=== PATIENT | male | born 1975 | race Caucasian/White ===

== ENCOUNTER 2018-09-17 06:23 | Day surgery (SDC) | payer OTHER, SELFPAY ==
[2018-09-17] MEDS: Lactated Ringers 1,000 ML 80 ML IV (06:36)
[2018-09-17] MEDS: CIPROFLOXACIN 400 MG/200 ML BAG 200 MG IVPB (06:37)
[2018-09-17 06:39] VITALS: BP 150/95; PULSE 106; RESP 18; TEMP 35.1; O2SAT 98
--- NOTE | 2018-09-17 07:33 | W.PM.HP.N ---
Date of service: 09/17/18 Time of Service: 07:33 Assessment and Plan (1) Phimosis: Current visit: Yes Status: Acute For circumcision History of Present Illness Chief Complaint: Phimosis Narrative: This is a 42-year-old gentleman who was uncircumcised. He describes cracking and bleeding along the foreskin. He is unable to retract the skin. He presents for circumcision. He has been treated for recurrent penile yeast infections as well. Review of Systems Review of Systems No fevers or chills No vision change or dysphasia No thyroid dysfunction No shortness of breath, cough or hemoptysis No chest pain or palpitations No nausea, vomiting, hepatitis, ulcers, jaundice, diarrhea or constipation No seizures, strokes or peripheral neuropathy No bleeding disorders or anemia No gout or arthralgia PFSH Medical History Depression (Chronic) HTN (hypertension) with goal to be determined (Chronic) Diabetes (Chronic) Surgical History H/O vasectomy (Acute) History of cholecystectomy (Chronic) Social History Smoking/Tobacco Use Status: Never Meds Home Medications Medication Instructions Recorded Confirmed Type furosemide 20 mg tablet 20 mg PO DAILY 08/13/18 09/14/18 History insulin detemir (U-100) 100 100 unit SC QPM 08/13/18 09/17/18 History unit/mL (3 mL) subcutaneous pen lisinopril 40 mg tablet 40 mg PO DAILY 08/13/18 09/14/18 History metformin 1,000 mg tablet 1,000 mg PO BID 08/13/18 09/14/18 History Allergies Allergy/AdvReac Type Severity Reaction Status Date / Time Penicillins Allergy Intermediate Anaphylaxsi Verified 09/17/18 06:33 s Exam Const General: cooperative, comfortable and no acute distress Neck Neck: supple Resp Auscultation: clear to auscultation bilaterally Cardio Rate: regular rate Rhythm: regular rhythm GI Palpation: soft and no masses Penis: phimosis Neuro General: alert and awake Results Last Vital Signs Temp 35.1 C L 09/17/18 06:39 Pulse 106 H 09/17/18 06:39 Resp 18 09/17/18 06:39 BP 150/95 H 09/17/18 06:39 Pulse Ox 98 09/17/18 06:39
[2018-09-17] MEDS: Bupivacaine 0.5% Pres-Free 30 ML VIAL (08:16)
--- NOTE | 2018-09-17 08:27 | W.PM.DSUDISC ---
Discharge Plan Disposition Patient Disposition: HOME Condition: Stable Discharge Details Reason For Visit: PHIMOSIS Attending Provider: Jasvir Franco Primary Care Provider: Dariana Méndez Home Meds and New Rx's Prescriptions: No Action Levemir FlexTouch U-100 Insuln 100 unit/mL (3 mL) insulin pen 100 unit SC QPM RF: 0 furosemide 20 mg tablet 20 mg PO DAILY RF: 0 metformin 1,000 mg tablet 1,000 mg PO BID RF: 0 lisinopril 40 mg tablet 40 mg PO DAILY RF: 0 Discharge Instructions Additional Instructions: OK to bathe/shower 09/18/18 and remove vaseline gauze dressing (dressing may come off on its own before that) F/U visit 2 to 4 weeks may apply antibiotic ointment to incision one to two times per day script for tramadol printed and signed Stand Alone Forms: DSU Post-op CircumcisionFermin (DSU) Activity:: Activity as Tolerated Remove Dressings/Wound Care:: 24 hours Shower/Bathe:: 24 hours Diet:: As Tolerated Discharge Orders Discharge Orders: Discharge Order (Routine); Ordered 09/17/18 Ordered By: Jasvir Franco DS: Diagnosis Discharge Diagnosis (1) Phimosis: Status: Acute
[2018-09-17 08:59] VITALS: BP 125/72; PULSE 80; RESP 16; TEMP 36; O2SAT 97
--- NOTE | 2018-09-17 11:21 | ROE_ITS ---
REPORT OF OPERATIVE PROCEDURE DATE OF PROCEDURE September 17, 2018 PREOPERATIVE DIAGNOSIS Phimosis. POSTOPERATIVE DIAGNOSIS Phimosis. PROCEDURE Circumcision. SURGEON Jasvir Franco M.D. ANESTHESIA MAC with local. COMPLICATIONS None. ESTIMATED BLOOD LOSS Minimal. HISTORY This is a 42-year-old gentleman who is diabetic. He is uncircumcised and he has episodes of recurrent monilial infections. This has resulted in scaring and cracking of the penile skin. He presents now f or circumcision. OPERATIVE REPORT The patient was brought to the Operating Room on 09/17/2018. After successful induction of Monitored An esthesia Care, he was placed in the supine position. His genitalia was prepped and draped. 0.25% Nelson chas was then used to perform a dorsal penile nerve block. I made two circumferential incisions on the penile skin. The first was on the exterior of the skin ju st above the level of the coronal sulcus. The skin was then retracted and its second internal incisio n was made approximately 1 cm below the level of the coronal sulcus. These two incisions were interco nnected and redundant skin was removed. Any bleeding points were cauterized using a hand-held Bovie. The skin edges were reapproximated with simple interrupted #4-0 Chromic sutures. A circumferential ring block was then performed on the penile skin using 0.25% Marcaine as well. A Va seline gauze dressing was applied to the incision site. The patient tolerated the procedure well with no complications. CC: Dariana Méndez M.D.
== END 2018-09-17 09:45 | disposition home or self-care (01) ==
PROVIDERS: PCP Family Medicine; Visit Provider Urology
PROC: (CPT 54161; principal; 2018-09-17 07:30)
DX: N47.1 Phimosis (principal)
CPT/HCPCS: 54161; NC; J0744; J1100; J1885; J2405

== ENCOUNTER 2019-08-02 08:38 | Outpatient (REF) | payer OTHER, SELFPAY ==
[2019-08-02 12:25] LABS: Hemoglobin A1C 10.6 % (4.5-6.2)
[2019-08-02 12:30] LABS: ALT 32 U/L (16-63); AST 11 U/L (15-37); Albumin 3.7 g/dL (3.4-5.0); Alkaline Phosphatase 107 U/L (46-116); Anion Gap 9.1 mmol/L (3-11); BUN 10 mg/dL (7-18); Bilirubin, Total 0.7 mg/dL (0.2-1.0); CO2 28.9 mmol/L (21.0-32.0); CREATININE 1.08 mg/dL (0.70-1.30); Calcium 9.1 mg/dL (8.5-10.1); Calculated LDL 60 mg/dL; Chloride 100 mmol/L (98-107); Cholesterol 119 mg/dL (50-200); Glucose 428 mg/dL (70-100); HDL Cholesterol 48 mg/dL (40-60); Potassium 4.6 mmol/L (3.5-5.1); Sodium 138 mmol/L (136-145); Total Protein 7.3 g/dL (6.4-8.2); Triglyceride 55 mg/dL (30-150)
== END 2019-08-02 08:58 ==
LOC: NCHCN 08:38
PROVIDERS: PCP Family Medicine; Visit Provider Family Medicine
DX: E11.9 Type 2 diabetes mellitus without complications (principal); I10 Essential (primary) hypertension; N18.3 Chronic kidney disease, stage 3 (moderate)
CPT/HCPCS: 80053; 80061; 83036

== ENCOUNTER 2020-09-21 18:07 | Outpatient (REF) | payer OTHER, SELFPAY ==
[2020-09-21 14:35] LABS: ALT 31 U/L (16-63); AST 9 U/L (15-37); Albumin 3.8 g/dL (3.4-5.0); Alkaline Phosphatase 99 U/L (46-116); BUN 14 mg/dL (7-18); Bilirubin, Total 0.7 mg/dL (0.2-1.0); CREATININE 1.03 mg/dL (0.70-1.30); Calcium 8.9 mg/dL (8.5-10.1); Calculated LDL 68 mg/dL (<100); Chloride 99 mmol/L (98-107); Cholesterol 123 mg/dL (<200); Glucose 332 mg/dL (74-106); HDL Cholesterol 44 mg/dL (40-60); Potassium 4.3 mmol/L (3.5-5.1); Sodium 137 mmol/L (136-145); Total Protein 7.3 g/dL (6.4-8.2); Triglyceride 58 mg/dL (<150)
== END 2020-09-21 18:27 ==
LOC: NCHCN 18:07
PROVIDERS: PCP Family Medicine; Visit Provider Nurse Practitioner Family
DX: I10 Essential (primary) hypertension (principal); E11.9 Type 2 diabetes mellitus without complications; F41.8 Other specified anxiety disorders; R60.0 Localized edema; N18.30 Chronic kidney disease, stage 3 unspecified; E66.9 Obesity, unspecified
CPT/HCPCS: 80053; 80061

== ENCOUNTER 2021-04-10 09:18 | Outpatient (REF) | payer OTHER, SELFPAY ==
[2021-04-10 13:59] LABS: Anion Gap 9.9 mmol/L (3-11); BUN 12 mg/dL (7-18); CO2 28.1 mmol/L (21.0-32.0); CREATININE 1.1 mg/dL (0.70-1.30); Calcium 8.9 mg/dL (8.5-10.1); Chloride 103 mmol/L (98-107); Glucose 151 mg/dL (74-106); Potassium 4.3 mmol/L (3.5-5.1); Sodium 141 mmol/L (136-145)
== END 2021-04-10 09:19 | disposition home or self-care (01) ==
LOC: NCHCN 09:18
PROVIDERS: PCP Family Medicine; Visit Provider Nurse Practitioner Family
DX: R60.0 Localized edema (principal); E66.9 Obesity, unspecified; E11.40 Type 2 diabetes mellitus with diabetic neuropathy, unspecified; F32.9 Major depressive disorder, single episode, unspecified; E11.22 Type 2 diabetes mellitus with diabetic chronic kidney disease; I12.9 Hypertensive chronic kidney disease with stage 1 through stage 4 chronic kidney disease, or unspecified chronic kidney disease; N18.30 Chronic kidney disease, stage 3 unspecified; G47.33 Obstructive sleep apnea (adult) (pediatric)
CPT/HCPCS: 80048

== ENCOUNTER 2021-08-10 13:33 | Outpatient (CLI) | payer OTHER, SELFPAY ==
--- NOTE | 2021-08-10 13:30 | DI.RAD_ITS ---
Exam(s) XR FOOT RT COMPLETE EXAM: XR FOOT RT COMPLETE CLINICAL HISTORY: DIABETIC FOOT ULCER, E11.621. TECHNIQUE: 2D digital imaging was performed. COMPARISON: No exams were available for comparison FINDINGS: BONES: No acute fracture is present. No bony destructive lesion is seen. JOINTS: No dislocation present. SOFT TISSUE: Marked swelling near the 5th MTP joint. Calcification within the area of soft tissue sw elling versus foreign body. No bony erosions or fractures. Vascular calcifications. IMPRESSION: Soft tissue swelling near the 5th MTP joint with calcification versus foreign body. DATA REPOSITORY: RADIATION DOSE DELIVERED:
== END 2021-08-10 13:53 ==
PROVIDERS: PCP Family Medicine; Visit Provider Nurse Practitioner Family
DX: E11.621 Type 2 diabetes mellitus with foot ulcer (principal); M79.9 Soft tissue disorder, unspecified
CPT/HCPCS: 73630

== ENCOUNTER 2021-08-10 14:33 | Outpatient (REF) | payer OTHER, SELFPAY ==
[2021-08-10 14:46] LABS: Abs Immature Grans 0.02 10^3/uL (0.0-0.06); Absolute Basophil Count 0.05 10^3/uL (0.0-0.2); Absolute Eosinophil Count 0.25 10^3/uL (0.0-0.7); Absolute Lymphocyte Count 1.55 10^3/uL (1.2-3.4); Absolute Monocyte Count 0.59 10^3/uL (0.1-0.8); Absolute Neutrophil Count 8.15 10^3/uL (1.2-6.7); Basophils % 0.5; Eosinophils % 2.4; HCT 48.8 % (40.0-50.0); HGB 15.8 g/dL (13.5-17.5); Immature Grans % 0.2; Lymphocytes % 14.6; MCHC 32.4 % (32.0-36.0); MCV 77.2 fL (80-95); Monocytes % 5.6; Neutrophils % 76.7; Nucleated RBC 0 %; Platelet Count 195 10^3/uL (130-400); RBC 6.32 10^6/uL (4.36-5.78); RDW 14.3 % (11.8-14.1); WBC 10.61 10^3/uL (4.4-10.8)
[2021-08-10 14:54] LABS: ESR 40 mm/hr (0-15)
[2021-08-10 15:30] LABS: ALT 21 U/L (16-63); AST 8 U/L (15-37); Albumin 3.7 g/dL (3.4-5.0); Alkaline Phosphatase 78 U/L (46-116); Anion Gap 9.3 mmol/L (3-11); BUN 13 mg/dL (7-18); Bilirubin, Total 0.7 mg/dL (0.2-1.0); CO2 27.7 mmol/L (21.0-32.0); Calcium 8.8 mg/dL (8.5-10.1); Chloride 102 mmol/L (98-107); Glucose 174 mg/dL (74-106); Potassium 4.1 mmol/L (3.5-5.1); Sodium 139 mmol/L (136-145); Total Protein 7.2 g/dL (6.4-8.2)
== END 2021-08-10 14:34 | disposition home or self-care (01) ==
LOC: NCHCN 14:33
PROVIDERS: PCP Family Medicine; Visit Provider Nurse Practitioner Family
DX: E11.621 Type 2 diabetes mellitus with foot ulcer (principal)
CPT/HCPCS: 80053; 85652; 85025

== ENCOUNTER 2021-08-12 11:00 | Emergency (ER) | payer OTHER, SELFPAY ==
[2021-08-12 11:17] VITALS: BP 151/97; PULSE 114; RESP 16; TEMP 35.8; O2SAT 96
--- NOTE | 2021-08-12 11:27 | ED.GENADUL_ITS ---
Discharge Plan Disposition Patient Disposition: HOME Condition: Stable Discharge Details Clinical Impression: Cellulitis of foot, right, Foreign body (FB) in soft tissue Primary Care Provider: Dariana Méndez ED Provider: Betito Londono Home Meds and New Rx's Prescriptions: New ciprofloxacin HCl 500 mg tablet 500 mg PO BID Qty: 20 RF: 0 Continued furosemide 20 mg tablet 20 mg PO DAILY RF: 0 metformin 1,000 mg tablet 1,000 mg PO BID RF: 0 lisinopril 40 mg tablet 40 mg PO DAILY RF: 0 tramadol 50 mg tablet 50 mg PO Q6H PRN (Reason: pain) Qty: 20 RF: 0 gabapentin 100 mg Tablet 600 mg PO TID RF: 0 losartan 25 mg Tablet 25 mg PO DAILY RF: 0 glipizide 5 mg Tablet 4 mg PO BID RF: 0 Discharge Instructions Instructions: Cellulitis (ED) Additional Instructions: Levaquin and Cipro as directed. Rest, elevate, warm compresses every 2 hours for 20 minutes. Please watch for new or worsening symptoms and return to the ER for any concerns. I have placed you on the podiatry list, please call the office of Dr. Park tomorrow to discuss your ongoing symptoms, ER visits, and need for prompt outpatient reevaluation Stand Alone Forms: Work Release Referrals: Maxi Park DPM [[facility] STAFF PHYSICIAN] - Medical Decision Making This is a 45-year-old gentleman, past medical history of diabetes, presenting for evaluation of right foot cellulitis. Had x-ray and labs on Friday, IM Rocephin and placed on p.o. Levaquin. Presents today reporting subjective fever and spreading redness. He does present slightly hypertensive but denies any headache, chest pain, etc. Patient states that he used to be on a hypertensive medication but was found to occasionally be hypotensive so he stopped taking the medication at the suggestion of his primary care provider. Will continue to monitor his blood pressure and discuss whether he needs to be placed back on a hypertensive medication. I was able to easily remove the glass foreign body from the plantar aspect. The vesicle is intact, do not see any indication to drain this vesicle. Patient with mild dorsal cellulitis which is thin slightly past the marking on the lateral aspect. Will obtain IV access, CBC, CMP, inflammatory markers and obtain x-ray of the right foot status post the foreign body removal. No evidence of fluctuance or induration requiring I&D. Low suspicion for osteomyelitis. This appears to be localized cellulitis. White blood cell count of 9.48. This is actually less than what it was 2 days ago. ESR of 47, CRP of 4.98 X-ray does not reveal any acute fracture dislocation or malalignment. Nonspecific 2 cm oval soft tissue mass lateral to the fifth metatarsal Given his plantar foreign body wound, I would like to add on Cipro as well. Will give first dose of 400 mg IV now and provide a prescription for Cipro 500 twice daily for the next 10 days. I do not believe that he requires emergent hospitalization now but we discussed the importance of taking his antibiotics, elevation, warm compresses, and prompt outpatient follow-up through podiatry. I have placed him on the podiatry list and will give a referral for him contact their office tomorrow. Strict discharge and return precautions provided. This documentation was generated using [employer] dictation system, please disregard any oddities of phrase or misspellings. Medical Records Medical records reviewed: Yes I reviewed the patient's medical records. Imaging Data Radiologic Study: Attestation: I personally reviewed and interpreted this imaging study as follows: Imaging: X-Ray Radiologist's impression: PROCEDURE INFORMATION: Exam: XR Right Foot Exam date and time: 08/12/2021 11:47 AM Age: 45 years old Clinical indication: Injury or trauma; Other: Cellulitus, removed glass fb from near 5th mtp; Wound; Foot; Right; Without foreign body TECHNIQUE: Imaging protocol: XR Right foot. Views: 3 or more views. COMPARISON: CR XR FOOT RT COMPLETE 08/10/2021 1:29 PM FINDINGS: Bones/joints: There is no evidence of acute fracture.There is no evidence of malalignment or dislocation. Soft tissues: 2 cm oval Soft tissue mass lateral to the 5th metatarsal phalangeal joint. Nonspecific but could represent infection or hematoma after removal of a foreign body.. IMPRESSION: 1. 2 cm oval Soft tissue mass lateral to the 5th metatarsal phalangeal joint. Nonspecific but could represent infection or hematoma after removal of a foreign body.. 2. There is no evidence of acute fracture.There is no evidence of malalignment or dislocation Lab Data Lab results reviewed: Yes I reviewed the patient's lab results. Labs: Laboratory Tests Range/Units 08/12/21 08/12/21 08/12/21 12:30 12:30 12:30 WBC (4.4-10.8) 10^3/uL 9.48 RBC (4.36-5.78) 10^6/uL 6.35 H Hgb (13.5-17.5) g/dL 15.6 Hct (40.0-50.0) % 48.4 MCV (80-95) fL 76.2 L MCH (27.0-33.0) pg 24.6 L MCHC (32.0-36.0) % 32.2 RDW (11.8-14.1) % 14.1 Plt Count (130-400) 10^3/uL 228 MPV (8.0-11.0) fL 10.8 Immature Gran % 0.4 Neutrophils % 72.9 Lymphocytes % 17.1 Monocytes % 5.1 Eosinophils % 4.0 Basophils % 0.5 Nucleated RBC % % 0 Absolute Neutrophils (1.2-6.7) 10^3/uL 6.91 H Absolute Lymphocytes (1.2-3.4) 10^3/uL 1.62 Absolute Monocytes (0.1-0.8) 10^3/uL 0.48 Absolute Eosinophils (0.0-0.7) 10^3/uL 0.38 Absolute Basophils (0.0-0.2) 10^3/uL 0.05 ESR (0-15) mm/hr 47 H Sodium (136-145) mmol/L 139 Potassium (3.5-5.1) mmol/L 3.8 Chloride (98-107) mmol/L 102 Carbon Dioxide (21.0-32.0) mmol/L 28.8 Anion Gap (3-11) mmol/L 8.2 BUN (7-18) mg/dL 13 Creatinine (0.70-1.30) mg/dL 1.0 Estimated GFR/1.73 m2 (mL/min/1.73m2) >= 60.00 Glucose (74-106) mg/dL 111 H Calcium (8.5-10.1) mg/dL 9.1 Total Bilirubin (0.2-1.0) mg/dL 0.3 AST (15-37) U/L < 5 L ALT (16-63) U/L 16 Alkaline Phosphatase (46-116) U/L 75 C-Reactive Protein (0.0-0.3) mg/dL 4.98 H Total Protein (6.4-8.2) g/dL 8.1 Albumin (3.4-5.0) g/dL 3.6 HPI General Mode of arrival: ambulatory . Date/Time Provider Initiated Documentation: 08/12/21 11:01 . Limitations to Documentation: no limitations . Information obtained by: patient and family . HPI Narrative: This is a 45-year- old gentleman, past medical history of diabetes, hypertension, depression, presenting to the ER for evaluation of a left foot infection. Patient states that the infection began on of this past week, subsequently seen in the urgent care on Friday, x-ray and labs obtained, given IM Rocephin and placed on oral Levaquin. Patient reports that he has baseline neuropathy, denies any pain, known injury. Subjectively felt feverish overnight. Patient also noticed a piece of glass in the plantar aspect of his foot. Tetanus status is up-to-date. Patient also reports a nondraining blister. No other concerns or complaints at this time. Related Data Home Medications Medication Instructions Recorded Confirmed furosemide 20 mg tablet 20 mg PO DAILY 08/13/18 08/12/21 lisinopril 40 mg tablet 40 mg PO DAILY 08/13/18 08/12/21 metformin 1,000 mg tablet 1,000 mg PO BID 08/13/18 08/12/21 tramadol 50 mg tablet 50 mg PO Q6H PRN #20 tab 09/17/18 08/12/21 ciprofloxacin HCl 500 mg PO BID #20 tab 08/12/21 gabapentin 600 mg PO TID 08/12/21 08/12/21 glipizide 4 mg PO BID 08/12/21 08/12/21 losartan 25 mg PO DAILY 08/12/21 08/12/21 Previous Rx's Medication Instructions Recorded tramadol 50 mg tablet 50 mg PO Q6H PRN #20 tab 09/17/18 ciprofloxacin HCl 500 mg PO BID #20 tab 08/12/21 Allergies Allergy/AdvReac Type Severity Reaction Status Date / Time Penicillins Allergy Intermediate Anaphylaxsi Verified 08/12/21 11:23 s General Stated Complaint: Orthopedic ANA M: 3 Review of Systems Constitutional Constitutional: Reports fever(s) (Subjective) and Denies weakness Musculoskeletal Musculoskeletal: Denies deformity and Denies arthralgias Comments: Patient reports baseline neuropathy Integumentary/Breasts Skin/Breast: Reports erythema Neurologic Neurologic: Denies weakness Comments: Baseline neuropathy [facility] Active Problem List Cellulitis of foot, right (Acute) Foreign body (FB) in soft tissue (Acute) Phimosis (Acute) Depression (Chronic) HTN (hypertension) with goal to be determined (Chronic) Diabetes (Chronic) Surgical History H/O vasectomy History of cholecystectomy Social History Smoking/Tobacco Use Status: Never Smoking risk assessment performed?: Yes Drug use: Never Substance use type: does not use Exam Const General: cooperative, healthy appearing, comfortable and no acute distress Orientation: alert and awake HENMT Head: normal to inspection, normocephalic and atraumatic Mouth: moist mucous membranes Eyes General: appearance normal, both eyes and all related structures Conjunctivae: conjunctivae normal Neck Neck: normal visual inspection, trachea midline and supple Resp Effort & Inspection: normal respiratory effort and able to speak in complete sentences Cardio Rate: regular rate Rhythm: regular rhythm Skin General skin exam: erythema Neuro General: patient alert, patient awake, moves all extremities and no focal motor deficits Cognition: normal cognition Speech: speech normal Gait: normal gait Motor: muscle tone normal throughout Sensory Exam: other (Baseline neuropathy) Extrem General: full ROM and capillary refill normal Ankle/foot/toe images: 1. Appears to be a plantar foreign body, glass in nature 2. 4 cm intact blood-filled vesicle 3. Erythema, warmth. Normal capillary refill and dorsalis pulse. There is a sterile skin marker that was drawn around the erythema 2 days ago, along the lateral aspect it extends 1 cm past the markings Psych Appearance: grossly normal Mental Status: mental status grossly normal Course Vital Signs Vital signs: Vital Signs Temperature 35.8 C L 08/12/21 11:17 Pulse 114 H 08/12/21 11:17 Respiratory Rate 16 08/12/21 11:17 Blood Pressure 151/97 H 08/12/21 11:17 Pulse Oximetry 96 08/12/21 11:17 Temperature 35.8 C L 08/12/21 11:17 Temperature Source Skin 08/12/21 11:17 Pulse 114 H 08/12/21 11:17 Respiratory Rate 16 08/12/21 11:17 Respiratory Effort 08/12/21 11:17 Blood Pressure 151/97 H 08/12/21 11:17 Blood Pressure Position Sitting 08/12/21 11:17 Pulse Oximetry 96 08/12/21 11:17 Oxygen Delivery Method Room Air 08/12/21 11:17 Oxygen Flow Rate 0 08/12/21 11:17 Pain Level 4 08/12/21 11:17 Procedures Foreign Body Removal Site: right and foot Description of foreign body: other (Glass) Sedation/Analgesia: none Technique: removal with forceps (Alligator) Confirmed by:: direct visualization and radiograph Complications: none Neurovascular: normal distal pulse and normal capillary fill
--- NOTE | 2021-08-12 11:45 | DI.RAD_ITS ---
Exam(s) XR FOOT RT COMPLETE EXAM: XR FOOT RT COMPLETE CLINICAL HISTORY: cellulitis, removed glass fb from near 5th mtp. TECHNIQUE: 2D digital imaging was performed. COMPARISON: CR XR FOOT RT COMPLETE from 08/10/2021 FINDINGS: The previously present foreign body lateral to the 5th metatarsal phalangeal joint is no longer seen. However, there is now a relatively well-defined abnormal soft tissue density in this region measuri ng approximately 2 by 1.4 cm and most probably hematoma, developing abscess, or a combination there o f. There are no additional radiopaque foreign bodies. No obvious radiographic evidence of osteomyel itis. No erosions. IMPRESSION: Soft tissue mass lateral to the 5th MTP joint, either representing hematoma or infection post removal of foreign body which was evident on the images of 08/10/2021. DATA REPOSITORY: RADIATION DOSE DELIVERED:
--- NOTE | 2021-08-12 12:16 | DI.VRAD_ITS ---
PROCEDURE INFORMATION: Exam: XR Right Foot Exam date and time: 08/12/2021 11:47 AM Age: 45 years old Clinical indication: Injury or trauma; Other: Cellulitus, removed glass fb from near 5th mtp; Wound; Foot; Right; Without foreign body TECHNIQUE: Imaging protocol: XR Right foot. Views: 3 or more views. COMPARISON: CR XR FOOT RT COMPLETE 08/10/2021 1:29 PM FINDINGS: Bones/joints: There is no evidence of acute fracture.There is no evidence of malalignment or dislocation. Soft tissues: 2 cm oval Soft tissue mass lateral to the 5th metatarsal phalangeal joint. Nonspecific but could represent infection or hematoma after removal of a foreign body.. IMPRESSION: 1. 2 cm oval Soft tissue mass lateral to the 5th metatarsal phalangeal joint. Nonspecific but could represent infection or hematoma after removal of a foreign body.. 2. There is no evidence of acute fracture.There is no evidence of malalignment or dislocation. Dictated and Authenticated by: Gerda Presley MD. Ordering:ABBEY Cisse MD
[2021-08-12 12:45] LABS: Abs Immature Grans 0.04 10^3/uL (0.0-0.06); Absolute Basophil Count 0.05 10^3/uL (0.0-0.2); Absolute Eosinophil Count 0.38 10^3/uL (0.0-0.7); Absolute Lymphocyte Count 1.62 10^3/uL (1.2-3.4); Absolute Monocyte Count 0.48 10^3/uL (0.1-0.8); Absolute Neutrophil Count 6.91 10^3/uL (1.2-6.7); Basophils % 0.5; HCT 48.4 % (40.0-50.0); HGB 15.6 g/dL (13.5-17.5); Immature Grans % 0.4; Lymphocytes % 17.1; MCH 24.6 pg (27.0-33.0); MCHC 32.2 % (32.0-36.0); MCV 76.2 fL (80-95); MPV 10.8 fL (8.0-11.0); Monocytes % 5.1; Neutrophils % 72.9; Nucleated RBC 0 %; Platelet Count 228 10^3/uL (130-400); RBC 6.35 10^6/uL (4.36-5.78); RDW 14.1 % (11.8-14.1); RDW-SD 38.3 fL; WBC 9.48 10^3/uL (4.4-10.8)
[2021-08-12 12:49] LABS: ESR 47 mm/hr (0-15)
[2021-08-12 13:02] LABS: ALT 16 U/L (16-63); AST < 5 U/L (15-37); Albumin 3.6 g/dL (3.4-5.0); Alkaline Phosphatase 75 U/L (46-116); Anion Gap 8.2 mmol/L (3-11); BUN 13 mg/dL (7-18); Bilirubin, Total 0.3 mg/dL (0.2-1.0); CO2 28.8 mmol/L (21.0-32.0); Calcium 9.1 mg/dL (8.5-10.1); Chloride 102 mmol/L (98-107); Glucose 111 mg/dL (74-106); Potassium 3.8 mmol/L (3.5-5.1); Sodium 139 mmol/L (136-145); Total Protein 8.1 g/dL (6.4-8.2)
[2021-08-12 13:03] LABS: C-Reactive Protein 4.98 mg/dL (0.0-0.3)
[2021-08-12 13:04] VITALS: BP 154/106; PULSE 86; RESP 16; TEMP 36.3; O2SAT 96
--- NOTE | 2021-08-12 13:10 | NUR.NOTE ---
Nursing Note: Referral faxed to Dr. Park, Podiatry, for diabetic foot infection, TESSA. Rosanna Silvestre
[2021-08-12] MEDS: CIPROFLOXACIN 400 MG/200 ML BAG 200 MG IVPB (13:27)
[2021-08-12 14:39] VITALS: BP 154/106; PULSE 86; RESP 16; TEMP 36.6; O2SAT 96
== END 2021-08-12 14:36 | disposition home or self-care (01) ==
PROVIDERS: Emergency Provider Physician Assistant; PCP Family Medicine
DX: L03.115 Cellulitis of right lower limb (principal); S90.851A Superficial foreign body, right foot, initial encounter; W25.XXXA Contact with sharp glass, initial encounter; E11.9 Type 2 diabetes mellitus without complications; Z79.84 Long term (current) use of oral hypoglycemic drugs
CPT/HCPCS: 36415; 80053; 85652; 96365; 99284; 73630; 85025; 86140; J0744

== ENCOUNTER 2021-08-14 11:02 | Outpatient (REF) | payer OTHER, SELFPAY | END 2021-08-14 11:03 | disposition home or self-care (01) | LOC: LBN 11:02 | PROVIDERS: PCP Family Medicine; Visit Provider Podiatrist | DX: E11.621 Type 2 diabetes mellitus with foot ulcer (principal) | CPT/HCPCS: 87077; 87070; 87186; 87205 ==

== ENCOUNTER 2022-04-29 15:13 | Outpatient (REF) | payer OTHER, SELFPAY ==
[2022-04-29 15:32] LABS: ALT 32 U/L (16-63); AST 20 U/L (15-37); Albumin 3.6 g/dL (3.4-5.0); Alkaline Phosphatase 75 U/L (46-116); Anion Gap 11.8 mmol/L (3-11); BUN 12 mg/dL (7-18); Bilirubin, Total 0.3 mg/dL (0.2-1.0); CO2 26.2 mmol/L (21.0-32.0); Calcium 8.8 mg/dL (8.5-10.1); Calculated LDL 52 mg/dL (<100); Chloride 100 mmol/L (98-107); Cholesterol 113 mg/dL (<200); Glucose 125 mg/dL (74-106); HDL Cholesterol 49 mg/dL (40-60); Magnesium 1.8 mg/dL (1.8-2.4); Potassium 3.9 mmol/L (3.5-5.1); Sodium 138 mmol/L (136-145); Total Protein 8.2 g/dL (6.4-8.2); Triglyceride 63 mg/dL (<150); Vitamin B12 156 pg/mL (193-986)
== END 2022-04-29 15:14 | disposition home or self-care (01) ==
LOC: NCHCN 15:13
PROVIDERS: PCP Family Medicine; Visit Provider Nurse Practitioner Family
DX: I10 Essential (primary) hypertension (principal); E11.9 Type 2 diabetes mellitus without complications; F41.8 Other specified anxiety disorders; E11.621 Type 2 diabetes mellitus with foot ulcer; R11.2 Nausea with vomiting, unspecified; R19.8 Other specified symptoms and signs involving the digestive system and abdomen; R60.9 Edema, unspecified
CPT/HCPCS: 80053; 80061; 82607; 83735

== ENCOUNTER 2022-07-25 18:24 | Outpatient (REF) | payer OTHER, SELFPAY ==
[2022-07-26 10:09] LABS: HIV-1/2 Ag & Ab Screen Negative (Negative)
[2022-07-26 11:42] LABS: Syphilis Serology (RPR) Negative (Negative)
== END 2022-07-25 18:25 | disposition home or self-care (01) ==
LOC: NCHCN 18:24
PROVIDERS: PCP Family Medicine; Visit Provider Nurse Practitioner Family
DX: Z11.3 Encounter for screening for infections with a predominantly sexual mode of transmission (principal); Z00.00 Encounter for general adult medical examination without abnormal findings
CPT/HCPCS: 87389; 86592

== ENCOUNTER 2022-09-23 19:18 | Emergency (ER) | payer OTHER, SELFPAY ==
[2022-09-23 19:27] VITALS: BP 162/96; PULSE 109; RESP 24; TEMP 36.3; O2SAT 95
--- NOTE | 2022-09-23 19:30 | RT.EKG_ITS ---
APPROVED REPORT Exam: Resting ECG Reason for Exam: BACK PAIN Patient Location: E HR:112 bpm ECG Measurements Heart Rate 112 AXIS WI 124 P 69 QRSd 99 QRS 94 QT 374 T 3 QTc 511 Conclusion Sinus tachycardia...rate> 99 Prolonged QT interval...QTc >500mS
--- NOTE | 2022-09-23 19:45 | DI.CT_ITS ---
Exam(s) CT CHEST PE ABD PELVIS W EXAM: CT CHEST PE ABD PELVIS W CLINICAL HISTORY: right upper back and flank pain. TECHNIQUE: Imaging Protocol: Axial CT angiography was performed with multi-slice acquisition and mu lti-planar and/or 3D reconstructions. CONTRAST MATERIAL: Intravenous: Omnipaque 350contrast volume:100 mL COMPARISON: No exams were available for comparison FINDINGS: CHEST: Tracheobronchial tree: Patent where visualized. Pulmonary parenchyma: No consolidation or dominant measurable mass. No architectural distortion. Pulmonary Arteries: No evidence of filling defect to suggest pulmonary emboli. Mediastinum and Yuliya: No dominant adenopathy or fluid collection. The esophagus is unremarkable. Visualized thyroid gland: Unremarkable. Pleura: No effusion or pneumothorax. Heart: The heart is not dilated. No coronary artery calcifications are seen. No pericardial effusion. Aorta: Thoracic aorta non-dilated. No evidence of dissection. Bones: Within normal limits for the patient's age. Soft tissues: Unremarkable. ABDOMEN: Liver: There is diffuse decreased attenuation of the liver suggesting fatty infiltration. The liver measures 21 cm long. No measurable mass. Portal, Superior Mesenteric, and Splenic Veins: Unremarkable. Gallbladder and Biliary Tract: Status post cholecystectomy. Pancreas: Normal density, no abnormal calcifications or inflammatory process. Spleen: Normal. Adrenals: No masses seen. Kidneys: Normal size, contour and axis. No radiodense stones or obstructive uropathy. No masses seen. Abdominal Aorta: Abdominal portion non-dilated. Bowel: No evidence of bowel obstruction. There does appear to be mild wall thickening in the small b owel. No evidence of appendicitis. Peritoneal Cavity: No ascites, collection or mesenteric inflammatory response. No free air. Lymph Nodes: Within normal limits. Bones: Within normal limits for the patient's age. There is L5 spondylolysis but no evidence of sign ificant spondylolisthesis. Soft Tissues: Unremarkable. PELVIS: Bladder: Symmetric distention, no gross wall thickening. Reproductive Organs: Unremarkable as visualized. Lymph Nodes: Within normal limits. Bones: Within normal limits. IMPRESSION: 1. No evidence pulmonary embolism, thoracic aortic dissection or aneurysm. 2. No acute pulmonary process. 3. Question of mild wall thickening in the small bowel which may represent enteritis. Please correla te clinically. RADIATION DOSE DELIVERED: 2,359.12mGy.cm Total DLP DATA REPOSITORY: All CT scans at this facility are submitted to the National Radiology Data Registry (NRDR) Dose Index Registry (DIR) with the [employer] (A[employer]). RADIATION OPTIMIZATION: All CT scans at this facility use at least one of these dose optimization te chniques: automated exposure control; mA and/or kV adjustment per patient size (includes targeted exa ms where dose is matched to clinical indication); or iterative reconstruction.
--- NOTE | 2022-09-23 20:00 | ED.GENADUL_ITS ---
Discharge Plan Disposition Patient Disposition: Home Condition: Stable Discharge Details Clinical Impression: Back pain, Hypomagnesemia, Hypokalemia, Flank pain, Upper back pain Primary Care Provider: Dariana Méndez ED Provider: Chalino Pitt Home Meds and New Rx's Prescriptions: Continued furosemide 20 mg tablet 20 mg PO DAILY metformin 1,000 mg tablet 1,000 mg PO BID lisinopril 40 mg tablet 40 mg PO DAILY vitamin [id number] acid 500-400 mcg tablet 2 tab PO DAILY Rx Instructions: administer with a meal tramadol 50 mg tablet 50 mg PO Q6H PRN (Reason: pain) Qty: 20 0RF Rx Instructions: may take along with NSAIDS/Tylenol valsartan 40 mg tablet 20 mg PO DAILY tadalafil 10 mg tablet 10 mg PO DAILY PRN Rx Instructions: administer approximately 30min before sexual activity; do not use more than 1 dose per 24hrs polyethylene glycol 3350 [Miralax] 17 gram/dose powder 17 g PO DAILY Ozempic 1 mg/dose (4 mg/3 mL) pen injector 1 mg subcut QWEEK citalopram [Celexa] 10 mg tablet 10 mg PO DAILY gabapentin 100 mg Tablet 600 mg PO TID losartan 25 mg Tablet 25 mg PO DAILY glipizide 5 mg Tablet 4 mg PO BID Discharge Instructions Instructions: Hypokalemia (ED), Hypomagnesemia (ED) Additional Instructions: Your blood work showed slightly low potassium and magnesium levels. Your cat scan did not show any clear reason for your pain Follow up with your primary care provider within 1 week if you feel more ill, have severe worsening pain or difficulty breathing return to the emergency department Medical Decision Making 46 yo male with hx of dm, htn, nephrotic syndrome, who comes in with complaint of back pain. He states he has had intermittent abdominal pain and lack of appetite for months. Today he has sudden onset right sided back pain. He denies chest pain, fevers, chills, has had nausea and vomiting. He can't think of anything that makes the pain better or worse. HE arrives stable but appears uncomfortable. HE localizes the pain to the right upper back and right cva area and has tenderness with palpation to the cva area on the right. No abdominal tenderness. Unclear etiology for pain, could be kidney stone vs pe less likely dissection, will obtain cbc, cmp, lipase, ct chest for pe and abd/pelvis ct. labs show mild low K and mag. His CT shows no significant findings, questions mild enteritis and also spondylolithesis of l5/s1. He is now pain free and feels well. Unclear etiology for the pain earlier, given rapid improvement suspect this could have been a muscle spasm. He is stable for d/c, he will f/u with his pcp and return precautions given Differential Diagnosis Differential Diagnosis: kidney stone, pe, muscle spasm Imaging Data Radiologic Study: Attestation: I personally reviewed and interpreted this imaging study as follows: Imaging: CT Scan Radiologist's impression: IMPRESSION: Unremarkable CTA chest and abdomen. Question mild enteritis/enterocolitis Chronic spondylolysis with minimal spondylolisthesis at L5-S1 Lab Data Lab results reviewed: Yes I reviewed the patient's lab results. ECG Data Attestation: I personally reviewed and interpreted this ECG (s) as follows: Prior ECG tracings: not available for review Interpretation: sinus tachycardia rate of 112, pr 124, no acute st t wave ischemic findings HPI General Mode of arrival: wheelchair . Date/Time Provider Initiated Documentation: 09/23/22 19:50 . Limitations to Documentation: no limitations . Information obtained by: patient . History of Present Illness 46 year old M presents to the emergency department with the chief complaint of right flank pain, described as moderate, Patient started experiencing this day(s) (1) and it has been intermittent. No relieving factors improve symptom(s), No e xacerbating factors reported . Patient notes no other symptoms.. Patient did receive the following treatments prior to arrival, none Related Data Home Medications Medication Instructions Recorded Confirmed furosemide 20 mg tablet 20 mg PO DAILY 08/13/18 09/03/22 lisinopril 40 mg tablet 40 mg PO DAILY 08/13/18 09/03/22 metformin 1,000 mg tablet 1,000 mg PO BID 08/13/18 09/03/22 tramadol 50 mg tablet 50 mg PO Q6H PRN pain #20 tabs 09/17/18 09/03/22 gabapentin 100 mg tablet 600 mg PO TID 08/12/21 09/03/22 glipizide 5 mg tablet 4 mg PO BID 08/12/21 09/03/22 losartan 25 mg tablet 25 mg PO DAILY 08/12/21 09/03/22 vitamin B12 500 mcg-folic acid 400 2 tab PO DAILY 07/16/22 09/03/22 mcg tablet citalopram 10 mg tablet (Celexa) 10 mg PO DAILY 07/25/22 09/03/22 polyethylene glycol 3350 17 17 g PO DAILY 07/25/22 09/03/22 gram/dose oral powder (Miralax) semaglutide 1 mg/dose (4 mg/3 mL) 1 mg subcut QWEEK 07/25/22 09/03/22 subcutaneous pen injector (Ozempic) tadalafil 10 mg tablet 10 mg PO DAILY PRN 07/25/22 09/03/22 valsartan 40 mg tablet 20 mg PO DAILY 07/25/22 09/03/22 Previous Rx's Medication Instructions Recorded tramadol 50 mg tablet 50 mg PO Q6H PRN pain #20 tabs 09/17/18 Allergies Allergy/AdvReac Type Severity Reaction Status Date / Time Penicillins Allergy Intermediate Anaphylaxsi Verified 08/06/22 15:53 s General Stated Complaint: Abd Prob ANA M: 3 Review of Systems All systems reviewed & are unremarkable except as noted in HPI and below Constitutional Constitutional: Denies chills, Denies fever(s) and Denies weakness Cardiovascular Cardiovascular: Denies dyspnea Respiratory Respiratory: Denies cough and Denies dyspnea Genitourinary Genitourinary: Denies dysuria Integumentary/Breasts Skin/Breast: Denies rash Neurologic Neurologic: Denies weakness PFSH All Active Problems (Updated 09/23/22 @ 21:49 by Chalino Pitt MD) Back pain (Acute) Hypomagnesemia (Acute) Hypokalemia (Acute) Flank pain (Acute) Upper back pain (Acute) Cataracts, bilateral (Acute) Diabetic foot ulcer (Acute) Nausea and vomiting (Acute) Screening for colon cancer (Acute) CKD (chronic kidney disease) (Chronic) JOSE (obstructive sleep apnea) (Chronic) Depression with anxiety (Acute) Diabetic neuropathy (Acute) Obesity (Chronic) Peripheral edema (Acute) Erectile dysfunction (Acute) Bowel habit changes (Acute) Vitamin B12 deficiency (Acute) Decreased hearing (Acute) Screening for STD (sexually transmitted disease) (Acute) Neuropathic ulcer (Acute) Wound of right foot (Acute) Wound of left foot (Acute) Cellulitis of foot, right (Acute) Foreign body (FB) in soft tissue (Acute) Phimosis (Acute) Depression (Chronic) HTN (hypertension) with goal to be determined (Chronic) Diabetes (Chronic) Active Problem List Cellulitis of foot, right (Acute) Foreign body (FB) in soft tissue (Acute) Phimosis (Acute) Depression (Chronic) HTN (hypertension) with goal to be determined (Chronic) Diabetes (Chronic) Surgical History H/O vasectomy History of cholecystectomy Social History (Updated 07/18/22 @ 17:32 by Shereen Weaver RN) Smoking/Tobacco Use Status: Never Smoking risk assessment performed?: Yes Drug use: Never Substance use type: does not use Household members: children Number of Children: 3 current occupation: [employer] What is your relationship status?: Panel score (0-1 are the most socially isolated patients): 0 Exam Resp Effort & Inspection: able to speak in complete sentences Auscultation: clear to auscultation bilaterally Cardio Heart Sounds: no murmurs GI Palpation: soft and nontender Back/Spine/Pelvis Back: CVA tenderness Course Vital Signs Vital signs: Vital Signs Temperature 36.3 C L 09/23/22 19:27 Pulse 109 H 09/23/22 19:27 Respiratory Rate 24 09/23/22 19:27 Blood Pressure 162/96 H 09/23/22 19:27 Pulse Oximetry 95 09/23/22 19:27 Temperature 36.3 C L 09/23/22 19:27 Temperature Source Tympanic 09/23/22 19:27 Pulse 109 H 09/23/22 19:27 Respiratory Rate 24 09/23/22 19:27 Blood Pressure 162/96 H 09/23/22 19:27 Pulse Oximetry 95 09/23/22 19:27 Oxygen Delivery Method Room Air 09/23/22 19:27 Oxygen Flow Rate 0 09/23/22 19:27 Pain Level 10 09/23/22 19:27
[2022-09-23 20:07] LABS: Abs Immature Grans 0.06 10^3/uL (0.0-0.06); Absolute Basophil Count 0.06 10^3/uL (0.0-0.2); Absolute Eosinophil Count 0.07 10^3/uL (0.0-0.7); Absolute Lymphocyte Count 1.43 10^3/uL (1.2-3.4); Absolute Monocyte Count 0.46 10^3/uL (0.1-0.8); Basophils % 0.4; Eosinophils % 0.5; HCT 50.2 % (40.0-50.0); Immature Grans % 0.4; MCH 25.3 pg (27.0-33.0); MCHC 33.9 % (32.0-36.0); MCV 75 fL (80-95); MPV 10.8 fL (8.0-11.0); Monocytes % 3.2; Neutrophils % 85.5; Platelet Count 228 10^3/uL (130-400); RBC 6.72 10^6/uL (4.36-5.78); RDW 13.6 % (11.8-14.1); RDW-SD 35.9 fL; WBC 14.26 10^3/uL (4.4-10.8)
[2022-09-23 20:13] LABS: Absolute Neutrophil Count 12.19 10^3/uL (1.2-6.7)
[2022-09-23] MEDS: Ketorolac 15 MG/ML VIAL IVP (20:18)
[2022-09-23] MEDS: Normal Saline 1,000 ML 1000 ML IV (20:18)
[2022-09-23 20:19] LABS: Diff Comment RBC Morph Reviewed; Microcytosis 1+
[2022-09-23 20:22] LABS: ALT 51 U/L (16-63); AST 28 U/L (15-37); Albumin 4.1 g/dL (3.4-5.0); Alkaline Phosphatase 84 U/L (46-116); Anion Gap 14.7 mmol/L (3-11); BUN 10 mg/dL (7-18); Bilirubin, Total 0.8 mg/dL (0.2-1.0); CO2 26.3 mmol/L (21.0-32.0); CREATININE 1.3 mg/dL (0.70-1.30); Calcium 9.2 mg/dL (8.5-10.1); Chloride 93 mmol/L (98-107); Estimated GFR 68.19 (mL/min/1.73m2); Glucose 240 mg/dL (74-106); Lipase 50 U/L (73-393); Magnesium 1.5 mg/dL (1.8-2.4); Potassium 3.1 mmol/L (3.5-5.1); Sodium 134 mmol/L (136-145); Total Protein 8.4 g/dL (6.4-8.2); Troponin I < 50 ng/L (<or=60)
[2022-09-23] MEDS: Normal Saline - Diluent 50 ML VIAL IJ (20:37)
[2022-09-23] MEDS: Normal Saline Flush 10 ML SYR IVP (20:45)
[2022-09-23] MEDS: Omnipaque 350 MG/ML 100 ML BTL IJ (20:45)
--- NOTE | 2022-09-23 21:23 | DI.VRAD_ITS ---
PROCEDURE INFORMATION: Exam: CTA Chest With Contrast CTA Abdomen With Contrast Exam date and time: 09/23/2022 8:36 PM Age: 46 years old Clinical indication: Other: Right upper back and flank pain TECHNIQUE: Imaging protocol: Computed tomographic angiography of the chest with contrast. Computed tomographic angiography of the abdomen with contrast. 3D rendering (Not supervised by radiologist): MIP and/or 3D reconstructed images were created by the technologist. Radiation optimization: All CT scans at this facility use at least one of these dose optimization techniques: automated exposure control; mA and/or kV adjustment per patient size (includes targeted exams where dose is matched to clinical indication); or iterative reconstruction. Contrast material: OMNIPAQUE 350; Contrast volume: 100 ml; Contrast route: INTRAVENOUS (IV); COMPARISON: No relevant prior studies available. FINDINGS: VASCULATURE: Pulmonary arteries: No pulmonary emboli. Aorta: No aortic aneurysm. No aortic dissection. Celiac trunk and mesenteric arteries: No occlusion or significant stenosis. Renal arteries: No occlusion or significant stenosis. CHEST: Lungs: No consolidation. No masses. Pleural spaces: Unremarkable. No pneumothorax. No pleural effusion. Heart: Mild cardiomegaly. No pericardial effusion. ABDOMEN AND PELVIS: Liver: No mass. Hepatomegaly and diffuse fatty infiltration Gallbladder and bile ducts: Prior cholecystectomy. No ductal dilation. Pancreas: No mass. No ductal dilation. Spleen: No splenomegaly. Adrenal glands: No mass. Kidneys and ureters: No solid mass. No hydronephrosis. Stomach and bowel: No obstruction. Mild mucosal thickening. Intraperitoneal space: Unremarkable. No free air. No significant fluid collection. Lymph nodes: Unremarkable. No enlarged lymph nodes. Bones/joints: Chronic spondylolysis with minimal spondylolisthesis at L5-S1 No acute fracture. Soft tissues: Unremarkable. IMPRESSION: Unremarkable CTA chest and abdomen. Question mild enteritis/enterocolitis Chronic spondylolysis with minimal spondylolisthesis at L5-S1 Dictated and Authenticated by: Gerard Stewart MD. Ordering:KIERAN Allred MD
[2022-09-23 21:55] VITALS: BP 173/102; PULSE 103; RESP 16; TEMP 36.5; O2SAT 97
== END 2022-09-23 22:00 | disposition home or self-care (01) ==
PROVIDERS: Emergency Provider Emergency Medicine; PCP Family Medicine
DX: M54.6 Pain in thoracic spine (principal); E83.42 Hypomagnesemia; E87.6 Hypokalemia; R10.9 Unspecified abdominal pain; I10 Essential (primary) hypertension; E11.9 Type 2 diabetes mellitus without complications; R63.0 Anorexia; Z79.84 Long term (current) use of oral hypoglycemic drugs
CPT/HCPCS: 36415; 71275; 74177; 80053; 83690; 93005; 96361; 96374; 99285; 83735; 84484; 85025; 93010; 99284; J1885; J3490

== ENCOUNTER 2022-10-29 15:57 | Outpatient (REF) | payer OTHER, SELFPAY ==
[2022-10-29 15:15] LABS: BUN 8 mg/dL (7-18); CREATININE 1.2 mg/dL (0.70-1.30); Calcium 9.2 mg/dL (8.5-10.1); Chloride 100 mmol/L (98-107); Estimated GFR 75.06 (mL/min/1.73m2); Glucose 122 mg/dL (74-106); Magnesium 1.7 mg/dL (1.8-2.4); Potassium 3.9 mmol/L (3.5-5.1); Sodium 139 mmol/L (136-145); Vitamin B12 480 pg/mL (193-986)
== END 2022-10-29 15:58 | disposition home or self-care (01) ==
LOC: NCHCN 15:57
PROVIDERS: PCP Family Medicine; Visit Provider Nurse Practitioner Family
DX: K76.0 Fatty (change of) liver, not elsewhere classified (principal); I10 Essential (primary) hypertension; E11.9 Type 2 diabetes mellitus without complications; E53.8 Deficiency of other specified B group vitamins; E66.9 Obesity, unspecified; E83.42 Hypomagnesemia; R19.8 Other specified symptoms and signs involving the digestive system and abdomen
CPT/HCPCS: 80048; 82607; 83735

== ENCOUNTER 2022-11-03 08:16 | Emergency (ER) | payer OTHER, SELFPAY ==
[2022-11-03 08:21] VITALS: BP 180/92; PULSE 101; RESP 18; TEMP 35.7; O2SAT 100
--- NOTE | 2022-11-03 08:30 | DI.CT_ITS ---
Exam(s) CT ABDOMEN PELVIS W EXAM: CT ABDOMEN PELVIS W CLINICAL HISTORY: left abd flank pain. TECHNIQUE: Imaging Protocol: Axial computed tomography images with coronal and sagittal reformatted images were created and reviewed CONTRAST MATERIAL: Intravenous: Omnipaque 350 Contrast volume:100 ml Oral: no COMPARISON: CT CT CHEST PE ABD PELVIS W from 09/23/2022 FINDINGS: ABDOMEN: Lung Bases: Normal where visualized. Liver: Hepatic steatosis. no measurable mass. Gallbladder and biliary tract: S/P cholecystectomy. no radiodense calculus or dilation. Pancreas: Normal density, no abnormal calcifications or inflammatory process. Spleen: Normal. Kidneys: Normal size, contour and axis. Delayed Left nephrogram. Mild left hydronephrosis secondary t o a 3mm calcification at the UVJ. Mild left perinephric stranding. no masses seen. Adrenal glands: No masses seen. Abdominal Aorta: Abdominal portion non-dilated. PELVIS: Bladder: No gross wall thickening. No calculi.No focal mass. Bowel: 13 x 16mm nodule descening duodenum. No obstruction or bowel wall thickening. Peritoneal cavity: No ascites, collection or mesenteric inflammatory response. Bones: Bilateral L5 spondylosis. Mild degenerative changes. Reproductive organs: Within normal limits. Lymph nodes: Unremarkable. Impression: Mild left hydronephrosis secondary to a 3mm calcification at the UVJ. 13 x 16mm nodule descening duodenum. Endoscopy recommended. Unexpected findings RADIATION DOSE DELIVERED: 1,622.7mGy.cm Total DLP DATA REPOSITORY: All CT scans at this facility are submitted to the National Radiology Data Registry (NRDR) Dose Index Registry (DIR) with the [employer] (A[employer]). RADIATION OPTIMIZATION: All CT scans at this facility use at least one of these dose optimization te chniques: automated exposure control; mA and/or kV adjustment per patient size (includes targeted exa ms where dose is matched to clinical indication); or iterative reconstruction.
--- NOTE | 2022-11-03 08:35 | W.ED.GENAD ---
Discharge Plan Disposition Patient Disposition: Home Condition: Stable Discharge Details Clinical Impression: Left ureteral calculus Primary Care Provider: Dariana Méndez ED Provider: Wei Gonzales Home Meds and New Rx's Prescriptions: New tamsulosin [Flomax] 0.4 mg capsule 0.4 mg PO QHS Qty: 14 0RF Continued metformin 1,000 mg tablet 1,000 mg PO BID furosemide 20 mg tablet 10 mg PO DAILY vitamin I12-tfuzx acid 500-400 mcg tablet 2 tab PO DAILY Rx Instructions: administer with a meal gabapentin 600 mg tablet 600 mg PO TID tadalafil 10 mg tablet 10 mg PO DAILY PRN Rx Instructions: administer approximately 30min before sexual activity; do not use more than 1 dose per 24hrs polyethylene glycol 3350 [Miralax] 17 gram/dose powder 17 g PO DAILY Ozempic 1 mg/dose (4 mg/3 mL) pen injector 1 mg subcut QWEEK citalopram [Celexa] 10 mg tablet 10 mg PO DAILY ondansetron 4 mg tablet,disintegrating 4 mg PO Q8H PRN (Reason: nausea and vomiting) Qty: 30 0RF No Action famotidine 20 mg tablet 20 mg PO DAILY Patient Comments: Take 1 tablet by mouth once a day Discharge Instructions Instructions: Kidney Stones (ED), Flank Pain (ED) Additional Instructions: You may continue to take [id number] acetaminophen as needed for mild to moderate pain. Please use narcotics prescribed divided sparingly and as only needed for severe pain. We have placed a referral for you to follow-up with our urology department for further monitoring of your kidney stone. If you develop any significant fever, worsening of symptoms, or inability to urinate return immediately to the emergency department for reassessment. There was a incidental finding noted on CT scan with radiologist recommending potential endoscopy. Please follow-up with your primary care provider for further outpatient evaluation of this abnormality. Referrals: [facility] [Provider Group] - 1 week Dariana Méndez [Primary Care Provider] - (For further evaluation of CT abnormality) Discharge Data Discharge Date/Time-TO BE ENTERED AT DEPARTURE: 11/03/22 10:24 Medical Decision Making Patient presenting to the emergency department for chief complaint of left flank and abdominal pain. Patient reports that this started about 6 hours ago, woke him up from sleep, no known precipitating factor. Patient did have this a little over a month ago and was seen here in the emergency department with no obvious cause and suspicion of muscular spasm. Patient does have significant past medical history of diabetes, chronic kidney disease, hypertension, and anxiety. Physical exam shows tenderness to the left upper quadrant and CVA tenderness but no palpable muscular spasm or paraspinal tenderness, no spinal tenderness, normal active bowel sounds and otherwise unremarkable exam. Differential diagnosis to include renal or ureteral lithiasis, splenomegaly, pancreatitis. Doubt abdominal aortic aneurysm, pneumonia, or PE at this time. We will plan on checking labs, perform CT imaging, and treating patient's pain and nausea. The patient's labs do show an acute leukocytosis with elevated neutrophils and low lymphocytes, CMP does show slightly elevated creatinine at 1.4, glucose of 247, mag of 1.7. We will replete mag orally, lipase is within normal range. Patient is also getting IV fluids to help with elevated creatinine. Reviewed CT imaging and radiologist interpretation does show a 3 x 2 x 3 mm stone at the UVJ on the left side. I do feel this explains patient's symptoms. I did review patient's imaging from 09/23/2022 and do see that there was potentially a missed stone that was mid ureter at that point. I will place patient on referral to urology due to patient having kidney stone for greater than 1 month. Due to severity of discomfort causing patient to come in we will give patient small to go bottle of narcotics and did discuss with patient risk versus benefit along with some ODT Zofran. Otherwise will recommend continued use of acetaminophen given patient's history of CKD and will place patient on Flomax. At this time I doubt infected stone given sudden onset, no fever no chills. After discussion of diagnosis and plan of care patient has no further needs, questions, or concerns and states clear understanding to return to the emergency department for any worsening symptoms. This documentation was generated using [employer] dictation system, please disregard any oddities of phrase or misspellings. Medical Records Medical records reviewed: Yes I reviewed the patient's medical records. Medical records narrative: Reviewed previous emergency department note dated 09/23/[address] imaging report. Imaging Data Radiologic Study: Attestation: I personally reviewed and interpreted this imaging study as follows: Imaging: CT Scan Radiologist's impression: Exam: CT Abdomen And Pelvis With Contrast Exam date and time: 11/03/2022 9:19 AM Age: 46 years old Clinical indication: Other: Left abd flank pain TECHNIQUE: Imaging protocol: Computed tomography of the abdomen and pelvis with contrast. Radiation optimization: All CT scans at this facility use at least one of these dose optimization techniques: automated exposure control; mA and/or kV adjustment per patient size (includes targeted exams where dose is matched to clinical indication); or iterative reconstruction. Contrast material: OMNIPAQUE 350; Contrast volume: 100 ml; Contrast route: INTRAVENOUS (IV); COMPARISON: CT CHEST PE ABD PELVIS W 09/23/2022 8:36 PM FINDINGS: Lungs: The visualized lung bases demonstrate minor dependent atelectasis. Liver: The liver is again fatty in density. Gallbladder and bile ducts: Cholecystectomy clips are again present. Pancreas: Normal. No ductal dilation. Spleen: A splenule is again present. The spleen itself appears unremarkable. Adrenal glands: Normal. No mass. Kidneys and ureters: Mild left-sided hydroureteronephrosis with mild delay of the nephrogram and asymmetric perinephric stranding secondary to a 3 x 2 x 3 mm stone at the left ureterovesical junction. The kidneys appear otherwise unremarkable. Stomach and bowel: The unopacified small bowel is not significantly distended to suggest obstruction. There is a similar 12 x 16 mm soft tissue density focus in the descending duodenum (images 6:46, 4:35). The large bowel is grossly unremarkable in appearance. Appendix: No evidence of appendicitis. Intraperitoneal space: No free air or significant free fluid. Vasculature: Unremarkable. No abdominal aortic aneurysm. Lymph nodes: Unremarkable. No enlarged lymph nodes. Urinary bladder: Unremarkable. Reproductive: Unremarkable as visualized. Bones/joints: Degenerative changes again involve the spine, sacroiliac joints and hips. Soft tissues: Unremarkable. IMPRESSION: 1. Mild left-sided hydroureteronephrosis with mild delay of the nephrogram and asymmetric perinephric stranding secondary to a 3 x 2 x 3 mm stone at the left ureterovesical junction. 2. Similar 16 mm soft tissue density focus in the descending duodenum as compared with 09/23/2022. Suggest endoscopy. 3. Persistent fatty liver. HPI General Mode of arrival: ambulatory. Date/Time Provider Initiated Documentation: 11/03/22 08:19. Limitations to Documentation: no limitations. Information obtained by: patient, RN notes reviewed and old records reviewed. History of Present Illness 46 year old M presents to the emergency department with the chief complaint of Severe left flank pain, described as severe, with intensity rated at 9. Quality is described as sharp, and is localized to the back and abdomen. Patient reports no radiation. Patient started experiencing this hour(s) (6) and it has been constant. No relieving factors improve symptom(s), No exacerbating factors reported . Patient notes nausea/vomiting. Related Data Home Medications Medication Instructions Recorded Confirmed metformin 1,000 mg tablet 1,000 mg PO BID 08/13/18 11/03/22 vitamin B12 500 mcg-folic acid 400 2 tab PO DAILY 07/16/22 11/03/22 mcg tablet citalopram 10 mg tablet (Celexa) 10 mg PO DAILY 07/25/22 11/03/22 polyethylene glycol 3350 17 17 g PO DAILY 07/25/22 11/03/22 gram/dose oral powder (Miralax) semaglutide 1 mg/dose (4 mg/3 mL) 1 mg subcut QWEEK 07/25/22 11/03/22 subcutaneous pen injector (Ozempic) tadalafil 10 mg tablet 10 mg PO DAILY PRN 07/25/22 11/03/22 ondansetron 4 mg disintegrating 4 mg PO Q8H PRN nausea and 09/23/22 11/03/22 tablet vomiting #30 tabs furosemide 20 mg tablet 10 mg PO DAILY 10/29/22 11/03/22 gabapentin 600 mg tablet 600 mg PO TID 10/29/22 11/03/22 famotidine 20 mg tablet 20 mg PO DAILY 11/03/22 11/03/22 tamsulosin 0.4 mg capsule (Flomax) 0.4 mg PO QHS #14 caps 11/03/22 Previous Rx's Medication Instructions Recorded ondansetron 4 mg disintegrating 4 mg PO Q8H PRN nausea and 09/23/22 tablet vomiting #30 tabs tamsulosin 0.4 mg capsule (Flomax) 0.4 mg PO QHS #14 caps 11/03/22 Allergies Allergy/AdvReac Type Severity Reaction Status Date / Time Penicillins Allergy Intermediate Anaphylaxsi Verified 11/03/22 10:06 s General Stated Complaint: FlankPain ANA M: 3 Review of Systems Constitutional Constitutional: Denies chills and Denies fever(s) Cardiovascular Cardiovascular: Denies chest pain and Denies dyspnea Respiratory Respiratory: Denies dyspnea Gastrointestinal Gastrointestinal: Reports abdominal pain, Reports nausea and Reports vomiting Genitourinary Genitourinary: Denies hematuria, Denies dysuria and Reports flank pain Musculoskeletal Musculoskeletal: Reports back pain Integumentary/Breasts Skin/Breast: Denies rash PFSH All Active Problems (Updated 11/03/22 @ 10:06 by Wei Gonzales NP) Left ureteral calculus (Acute) Cataracts, bilateral (Acute) Diabetic foot ulcer (Acute) Nausea and vomiting (Acute) Screening for colon cancer (Acute) CKD (chronic kidney disease) (Chronic) JOSE (obstructive sleep apnea) (Chronic) Depression with anxiety (Acute) Diabetic neuropathy (Acute) Obesity (Chronic) Peripheral edema (Acute) Erectile dysfunction (Acute) Bowel habit changes (Acute) Vitamin B12 deficiency (Acute) Decreased hearing (Acute) Screening for STD (sexually transmitted disease) (Acute) Neuropathic ulcer (Acute) Wound of right foot (Acute) Wound of left foot (Acute) Cellulitis of foot, right (Acute) Foreign body (FB) in soft tissue (Acute) Phimosis (Acute) Depression (Chronic) HTN (hypertension) with goal to be determined (Chronic) Diabetes (Chronic) Surgical History H/O vasectomy History of cholecystectomy Social History Smoking/Tobacco Use Status: Never Smoking risk assessment performed?: Yes Alcohol Intake: current Alcohol Intake frequency: holidays/special occasions only Drug use: Never Substance use type: does not use Household members: children Number of Children: 3 current occupation: [employer] What is your relationship status?: Panel score (0-1 are the most socially isolated patients): 0 Do you feel safe at home: Yes Do you feel safe in your relationship?: Yes Exam Const General: cooperative and acute distress moderate; not respiratory Nutritional Appearance: overweight Orientation: alert, awake and oriented x3 Resp Effort & Inspection: normal respiratory effort and able to speak in complete sentences Auscultation: clear to auscultation bilaterally Cardio Rate: regular rate Rhythm: regular rhythm Heart Sounds: S1 normal and S2 normal GI Palpation: soft, not firm, no guarding, no masses, no pulsatile masses, not rigid, no splenomegaly and tender in the LUQ Auscultation: normal bowel sounds General: CVA tenderness on the left Back/Spine/Pelvis Back: CVA tenderness Thoracic/Lumbar Spine: thoracic and lumbar spine normal to inspection, No thoracic spinal tenderness and No lumbar spinal tenderness Neuro General: patient alert, patient awake, patient oriented x3, gait normal and moves all extremities Course Vital Signs Vital signs: Vital Signs Temperature 35.7 C L 11/03/22 08:21 Pulse 101 H 11/03/22 08:21 Respiratory Rate 18 11/03/22 08:21 Blood Pressure 180/92 H 11/03/22 08:21 Pulse Oximetry 100 11/03/22 08:21 Temperature 35.7 C L 11/03/22 08:21 Temperature Source Tympanic 11/03/22 08:21 Pulse 101 H 11/03/22 08:21 Respiratory Rate 18 11/03/22 08:21 Blood Pressure 180/92 H 11/03/22 08:21 Blood Pressure Position Sitting 11/03/22 08:21 Pulse Oximetry 100 11/03/22 08:21 Oxygen Delivery Method Room Air 11/03/22 08:21 Oxygen Flow Rate 0 11/03/22 08:21 Pain Level 6 11/03/22 08:21
[2022-11-03 08:49] LABS: Abs Immature Grans 0.04 10^3/uL (0.0-0.06); Absolute Basophil Count 0.07 10^3/uL (0.0-0.2); Absolute Eosinophil Count 0.02 10^3/uL (0.0-0.7); Absolute Lymphocyte Count 0.93 10^3/uL (1.2-3.4); Absolute Monocyte Count 0.29 10^3/uL (0.1-0.8); Absolute Neutrophil Count 11.05 10^3/uL (1.2-6.7); Basophils % 0.6; Eosinophils % 0.2; HCT 49.9 % (40.0-50.0); Immature Grans % 0.3; Lymphocytes % 7.5; MCH 24.5 pg (27.0-33.0); MCHC 32.1 % (32.0-36.0); MCV 76 fL (80-95); MPV 11.1 fL (8.0-11.0); Monocytes % 2.3; Neutrophils % 89.1; Platelet Count 235 10^3/uL (130-400); RBC 6.54 10^6/uL (4.36-5.78); RDW 14.3 % (11.8-14.1); RDW-SD 38.5 fL
[2022-11-03] MEDS: Ondansetron 4 MG/2 ML VIAL IVP (08:52)
[2022-11-03] MEDS: HYDROmorphone 2 MG/ML SYR 1 MG IVP (08:52)
[2022-11-03 09:03] LABS: ALT 47 U/L (16-63); AST 25 U/L (15-37); Albumin 3.9 g/dL (3.4-5.0); Alkaline Phosphatase 81 U/L (46-116); Anion Gap 9.6 mmol/L (3-11); BUN 12 mg/dL (7-18); Bilirubin, Total 0.6 mg/dL (0.2-1.0); CO2 29.4 mmol/L (21.0-32.0); CREATININE 1.4 mg/dL (0.70-1.30); Calcium 9.4 mg/dL (8.5-10.1); Chloride 102 mmol/L (98-107); Estimated GFR 62.39 (mL/min/1.73m2); Glucose 247 mg/dL (74-106); Lipase 35 U/L (16-77); Magnesium 1.7 mg/dL (1.8-2.4); Potassium 3.8 mmol/L (3.5-5.1); Sodium 141 mmol/L (136-145); Total Protein 7.9 g/dL (6.4-8.2)
[2022-11-03] MEDS: Omnipaque 350 MG/ML 100 ML BTL IJ (09:20)
[2022-11-03] MEDS: Normal Saline - Diluent 50 ML VIAL IV (09:24)
[2022-11-03] MEDS: Normal Saline 1,000 ML 1000 ML IV (09:41)
--- NOTE | 2022-11-03 09:54 | DI.VRAD_ITS ---
PROCEDURE INFORMATION: Exam: CT Abdomen And Pelvis With Contrast Exam date and time: 11/03/2022 9:19 AM Age: 46 years old Clinical indication: Other: Left abd flank pain TECHNIQUE: Imaging protocol: Computed tomography of the abdomen and pelvis with contrast. Radiation optimization: All CT scans at this facility use at least one of these dose optimization techniques: automated exposure control; mA and/or kV adjustment per patient size (includes targeted exams where dose is matched to clinical indication); or iterative reconstruction. Contrast material: OMNIPAQUE 350; Contrast volume: 100 ml; Contrast route: INTRAVENOUS (IV); COMPARISON: CT CHEST PE ABD PELVIS W 09/23/2022 8:36 PM FINDINGS: Lungs: The visualized lung bases demonstrate minor dependent atelectasis. Liver: The liver is again fatty in density. Gallbladder and bile ducts: Cholecystectomy clips are again present. Pancreas: Normal. No ductal dilation. Spleen: A splenule is again present. The spleen itself appears unremarkable. Adrenal glands: Normal. No mass. Kidneys and ureters: Mild left-sided hydroureteronephrosis with mild delay of the nephrogram and asymmetric perinephric stranding secondary to a 3 x 2 x 3 mm stone at the left ureterovesical junction. The kidneys appear otherwise unremarkable. Stomach and bowel: The unopacified small bowel is not significantly distended to suggest obstruction. There is a similar 12 x 16 mm soft tissue density focus in the descending duodenum (images 6:46, 4:35). The large bowel is grossly unremarkable in appearance. Appendix: No evidence of appendicitis. Intraperitoneal space: No free air or significant free fluid. Vasculature: Unremarkable. No abdominal aortic aneurysm. Lymph nodes: Unremarkable. No enlarged lymph nodes. Urinary bladder: Unremarkable. Reproductive: Unremarkable as visualized. Bones/joints: Degenerative changes again involve the spine, sacroiliac joints and hips. Soft tissues: Unremarkable. IMPRESSION: 1. Mild left-sided hydroureteronephrosis with mild delay of the nephrogram and asymmetric perinephric stranding secondary to a 3 x 2 x 3 mm stone at the left ureterovesical junction. 2. Similar 16 mm soft tissue density focus in the descending duodenum as compared with 09/23/2022. Suggest endoscopy. 3. Persistent fatty liver. Dictated and Authenticated by: Chailno Dickerson MD. Ordering:CECIL Carvajal MD
[2022-11-03 10:09] VITALS: BP 161/104; PULSE 85; RESP 18; TEMP 36.2; O2SAT 96
--- NOTE | 2022-11-03 10:13 | NUR.NOTE ---
Referrals made per Doug Gonzales for PCP f/u for abnormal CT for next avail and f/u with Urology for kidney stone next week. Put in the care manger's box for f/u assistance.Nursing Note:
[2022-11-03] MEDS: Ondansetron O.D.T. 4 MG TABEF, 3 TABS/BTL PO (10:22)
== END 2022-11-03 10:24 | disposition home or self-care (01) ==
PROVIDERS: Emergency Provider Nurse Practitioner Family; PCP Family Medicine
DX: N13.2 Hydronephrosis with renal and ureteral calculous obstruction (principal); E11.22 Type 2 diabetes mellitus with diabetic chronic kidney disease; I12.9 Hypertensive chronic kidney disease with stage 1 through stage 4 chronic kidney disease, or unspecified chronic kidney disease; N18.9 Chronic kidney disease, unspecified; D72.829 Elevated white blood cell count, unspecified; R79.89 Other specified abnormal findings of blood chemistry; Z79.84 Long term (current) use of oral hypoglycemic drugs
CPT/HCPCS: 36415; 80053; 83690; 96361; 96374; 96375; 99285; 74177; 83735; 85025; 99284; J1170; J2405; J3490

== ENCOUNTER 2022-11-11 02:53 | Outpatient (CLI) | payer OTHER, SELFPAY ==
[2022-11-11 09:47] LABS: HCT 49.7 % (40.0-50.0); HGB 15.9 g/dL (13.5-17.5); MCH 24.6 pg (27.0-33.0); MCV 77 fL (80-95); MPV 10.9 fL (8.0-11.0); Platelet Count 226 10^3/uL (130-400); RBC 6.46 10^6/uL (4.36-5.78); RDW-SD 39.8 fL; WBC 8.69 10^3/uL (4.4-10.8)
[2022-11-11 10:24] LABS: ALT 36 U/L (16-63); AST 18 U/L (15-37); Albumin 3.7 g/dL (3.4-5.0); Alkaline Phosphatase 78 U/L (46-116); Anion Gap 6.8 mmol/L (3-11); BUN 5 mg/dL (7-18); Bilirubin, Total 0.4 mg/dL (0.2-1.0); CO2 30.2 mmol/L (21.0-32.0); CREATININE 1.3 mg/dL (0.70-1.30); Calcium 8.9 mg/dL (8.5-10.1); Chloride 104 mmol/L (98-107); Estimated GFR 68.19 (mL/min/1.73m2); Glucose 126 mg/dL (74-106); Potassium 4.2 mmol/L (3.5-5.1); Sodium 141 mmol/L (136-145); TSH (W/Ref FT4) 1.22 uIU/mL (0.36-3.74); Total Protein 7.7 g/dL (6.4-8.2)
[2022-11-16 09:23] LABS: Testosterone, Total 358 ng/dL (240-950)
== END 2022-11-11 02:54 | disposition home or self-care (01) ==
LOC: LBO 02:53
PROVIDERS: PCP Family Medicine; Visit Provider Nurse Practitioner Gerontology
DX: N52.9 Male erectile dysfunction, unspecified (principal)
CPT/HCPCS: 36415; 80053; 84403; 85027; 84443

== ENCOUNTER 2022-11-19 15:22 | Outpatient (REF) | payer OTHER, SELFPAY ==
[2022-11-19 15:19] LABS: Abs Immature Grans 0.02 10^3/uL (0.0-0.06); Absolute Basophil Count 0.05 10^3/uL (0.0-0.2); Absolute Eosinophil Count 0.13 10^3/uL (0.0-0.7); Absolute Monocyte Count 0.29 10^3/uL (0.1-0.8); Absolute Neutrophil Count 4.45 10^3/uL (1.2-6.7); Basophils % 0.7; Eosinophils % 1.9; HCT 46.9 % (40.0-50.0); Immature Grans % 0.3; Lymphocytes % 26.7; MCH 24.7 pg (27.0-33.0); MCV 77 fL (80-95); MPV 11.3 fL (8.0-11.0); Monocytes % 4.3; Neutrophils % 66.1; Platelet Count 206 10^3/uL (130-400); RBC 6.08 10^6/uL (4.36-5.78); RDW 15.1 % (11.8-14.1); RDW-SD 41.8 fL; WBC 6.74 10^3/uL (4.4-10.8)
[2022-11-19 15:45] LABS: Ferritin 147 ng/mL (26-388)
[2022-11-19 16:29] LABS: Iron 74 ug/dL (65-175); Total Iron Binding Capacity 297 ug/dL (250-450); Transferrin Sat 25 % (20-55)
[2022-11-25 15:33] LABS: JAK2 Result see interpretation
== END 2022-11-19 15:23 | disposition home or self-care (01) ==
LOC: NCHCN 15:22
PROVIDERS: PCP Family Medicine; Visit Provider Nurse Practitioner Family
DX: N20.0 Calculus of kidney (principal); D75.1 Secondary polycythemia; R93.5 Abnormal findings on diagnostic imaging of other abdominal regions, including retroperitoneum; R11.0 Nausea
CPT/HCPCS: 81270; 82728; 83540; 83550; 85025

== ENCOUNTER 2022-12-04 03:23 | Outpatient (CLI) | payer OTHER, SELFPAY ==
[2022-12-04 10:47] LABS: Hemoglobin A1C 6.4 % (<5.7)
== END 2022-12-04 03:24 | disposition home or self-care (01) ==
LOC: LBO 03:23
PROVIDERS: PCP Family Medicine; Visit Provider Urology
DX: E11.9 Type 2 diabetes mellitus without complications (principal)
CPT/HCPCS: 36415; 83036

== ENCOUNTER 2022-12-05 07:39 | Day surgery (SDC) | payer OTHER, SELFPAY ==
--- NOTE | 2022-12-04 21:08 | W.PM.DSUDISC ---
Date of service: 12/05/22 Time of Service: 11:15 Discharge Plan Disposition Patient Disposition: Home Condition: Good Discharge Details Reason For Visit: cystoscopy, egd and colonoscopy Attending Provider: Mac Delacruz Primary Care Provider: Dariana Méndez Home Meds and New Rx's Prescriptions: Continued metformin 1,000 mg tablet 1,000 mg PO BID vitamin R77-pvtus acid 500-400 mcg tablet 2 tab PO DAILY Rx Instructions: administer with a meal gabapentin 600 mg tablet 600 mg PO TID Trulicity 0.75 mg/0.5 mL pen injector 0.75 mg subcut QWEEK tadalafil 10 mg tablet 10 mg PO DAILY PRN Rx Instructions: administer approximately 30min before sexual activity; do not use more than 1 dose per 24hrs citalopram [Celexa] 10 mg tablet 10 mg PO DAILY furosemide 20 mg tablet 10 mg PO DAILY ondansetron 4 mg tablet,disintegrating 4 mg PO Q8H PRN (Reason: nausea and vomiting) Qty: 30 0RF famotidine 20 mg tablet 20 mg PO DAILY Patient Comments: Take 1 tablet by mouth once a day Discontinued bisacodyl [Dulcolax (bisacodyl)] 5 mg tablet,delayed release (DR/EC) 5 mg PO ONCE Qty: 4 0RF Rx Instructions: Take according to provider's instructions for colonoscopy prep. polyethylene glycol 3350 17 gram/dose powder 17 g PO ONCE Qty: 238 0RF Rx Instructions: To be taken as directed by prescriber's office for colonoscopy prep. polyethylene glycol 3350 [Miralax] 17 gram/dose powder 17 g PO DAILY Discharge Instructions Additional Instructions: Followup with urology 6 to 8 weeks for renal US - can either be done in office or in diagnostic imaging Edu, I was able to complete your upper endoscopy and your colonoscopy today without much difficulty. I found a polyp in your duodenum, and was able to remove this. Once I have the results on the pathology report, I will notify you if you need any other treatments. I also found a single polyp in your colonoscopy that I removed completely. Similarly, the next steps for this will depend upon the pathology report. 1. If tolerated, consume a soft, low fiber diet for 1-2 days. 2[address] Do not drive, drink alcohol, operate machinery, make critical decisions, or do activities that require coordination or balance for 24 hours. 3. Because air was put into your colon during the procedure, expelling air from your rectum (passing gas or farting) is normal. 4. You may not have a bowel movement for 1-3 days because of the colonoscopy prep. This is normal. 5. You may experience a sore throat for 24 to 48 hours. You may use throat lozenges or gargle with warm salt water to relieve the discomfort. 6. Because air was put into your stomach during the procedure, you may experience some belching. 7. Go directly to the emergency room if you notice any of the following: Develop chills (warm to touch), or if you have a thermometer and your temperature is above 101 Difficulty breathing or difficultly swallowing Persistent vomiting Severe abdominal pain, other than gas cramps Severe chest pain Black, tarry stools Any bleeding ? exceeding one tablespoon 8. Call your physician if the site where your intravenous was started becomes red, swollen, painful, and warm to touch. 9. Your physician has reviewed your pre-procedure medications. Please continue to take those medications as previously ordered. You will be given specific information/education regarding any changes to your medications before leaving. Activity:: Activity as Tolerated Shower/Bathe:: 24 hours Diet:: As Tolerated Discharge Orders Discharge Orders: Discharge Order (Routine); Ordered 12/04/22 Ordered By: Mac Delacruz DS: Diagnosis Discharge Diagnosis (1) Duodenal nodule: Status: Acute Asessment and Plan: Follow-up on polypectomy
--- NOTE | 2022-12-04 21:10 | ENDO_ITS ---
Date of service: 12/05/22 Time of Service: 11:21 Endoscopy Report DATE OF PROCEDURE: 12/05/22 PRE-OP DIAGNOSIS: Duodenal mass POST-OP DIAGNOSIS: other (Duodenal polyp, colon polyp) PROCEDURE: EGD and colonoscopy SURGEON: Mac Delacruz ANESTHESIA TYPE: General:No Airway ESTIMATED BLOOD LOSS: 20 PATHOLOGY: other (Duodenal polyp (posterior wall of first portion), colon polyp from 75 cm) COMPLICATIONS: None DISPOSITION: same day INDICATIONS: Charles is a 46 year old male with an incidental finding of a duodenal mass on CT scan. He is also due for a screening colonoscopy PREP: Miralax/Dulcolax PROCEDURE END TIME: 11:08 FINDINGS: Duodenal polyp, colon polyp PROCEDURE DESCRIPTION: I assumed the care of this patient in the operating room after the completion of the procedure by Dr. Franco. Please find the separate dictation for that. Patient was already anesthetized, and a routine timeout procedure was performed. I began by advancing a standard gastroscope through the mouth past the hypopharynx and into the esophagus.? Under the direct vision of the scope, I advanced down the esophagus into the stomach.? Once I entered the stomach, I performed a brief inspection, followed by retroflexion towards the gastric cardia.? This appeared normal.? After that, I gently advanced the scope around the incisura angularis and examined the pylorus.? This also appeared normal.? Next, I advanced the scope through the pylorus into the duodenum.? The mucosa was pink and healthy appearing.? I was able to visualize bile draining into the duodenum through the ampulla Vater. ?Next, I began retracting the endoscope. Just distal to the duodenal bulb, along the posterior wall of the first portion, was a 1 cm pedunculated polyp. I was able to remove this with snare polypectomy. There was minimal bleeding. Again, I returned to the stomach which was carefully examined once again.? I then gently desufflated some of the stomach, and withdrew the endoscope into the distal esophagus. GE junction and Z-line were normal-appearing around 39 cm from the incisors.. ?Finally, I wit hdrew the scope along the length of the esophagus taking great care to examine the entirety of the mucosa.? I did not appreciate any abnormalities. Next, we moved Mr. Nick into the left lateral decubitus position. I began by performing an external anorectal exam.? Perineum and skin were normal, as was the anal verge.? There was no evidence of external hemorrhoids.? Next, I performed a digital rectal exam.? I did not appreciate any abnormal findings.? Next, I advanced a colonoscope into the rectal vault.? I performed retroflexion.? This was normal.? Using insufflation, I then advanced the co lonoscope beyond the rectal folds and into the sigmoid colon before advancing towards the cecum.? The quality of the prep was excellent.? The scope was noted to be in the cecum by identification of the ileocecal valve and appendiceal orifice. Around 75 cm from the anal verge I identified a 0.5 cm polyp. ?It appeared sessile in character. ?I was able to remove this with a cold forcep polypectomy. ?I examined the site, and there was minimal bleeding. ?Once this was completed, I continued to withdraw the scope and examine the remainder of the colonic mucosa.? I then began withdrawing the colonoscope using repeated irrigation as necessary for full evaluation of the colonic mucosa. ?Once the scope was withdrawn to the level of the rectum, great care was taken to examine portions of the rectal folds.? Finally, the scope was withdrawn and the patient was brought to the same-day surgery recovery unit as the anesthetic wore off. ?The findings and instructions were shared with the patient prior to discharge.
[2022-12-05] VITALS (8 sets, daily range): BP systolic 114–149; BP diastolic 73–104; PULSE 73–99; RESP 11–20; TEMP 36.1–36.4; O2SAT 94–99; BMI 34.7
--- NOTE | 2022-12-05 06:47 | W.ANESPRE ---
General Info Date of Service Date Performed: 12/05/22 Height: 6 ft 2 in Weight: 122.47 kg Body Mass Index (BMI): 34.7 Surgical Procedure: Operation Date: 12/05/22 09:10 Proposed Procedure Side Surgeon p Colonoscopy/Gastroscopy Mac Delacruz MD s Cystoscopy/Retrograde/Ureteroscopy/Stone Manipulation Left Jasvir Franco MD Meds Allergies and Home Medications Allergies Allergy/AdvReac Type Severity Reaction Status Date / Time Penicillins Allergy Intermediate Anaphylaxsi Verified 12/03/22 14:40 s Home Medication Medication Instructions Recorded metformin 1,000 mg tablet 1,000 mg PO BID 08/13/18 vitamin B12 500 mcg-folic acid 400 2 tab PO DAILY 07/16/22 mcg tablet citalopram 10 mg tablet (Celexa) 10 mg PO DAILY 07/25/22 polyethylene glycol 3350 17 17 g PO DAILY 07/25/22 gram/dose oral powder (Miralax) tadalafil 10 mg tablet 10 mg PO DAILY PRN 07/25/22 ondansetron 4 mg disintegrating 4 mg PO Q8H PRN nausea and 09/23/22 tablet vomiting #30 tabs gabapentin 600 mg tablet 600 mg PO TID 10/29/22 famotidine 20 mg tablet 20 mg PO DAILY 11/03/22 furosemide 20 mg tablet 10 mg PO DAILY 11/22/22 dulaglutide 0.75 mg/0.5 mL 0.75 mg subcut QWEEK 11/26/22 subcutaneous pen injector (Trulicity) bisacodyl 5 mg tablet,delayed 5 mg PO ONCE #4 tabs 11/28/22 release (Dulcolax (bisacodyl)) polyethylene glycol 3350 17 17 g PO ONCE #238 grams 11/28/22 gram/dose oral powder Current Visit Medications: Current Medications Generic Name Dose Route Start Last Admin Trade Name Freq PRN Reason Stop Dose Admin Hyoscyamine Sulfate 0.125 mg 12/04/22 21:11 Hyoscyamine 0.125 Mg Sl/Oral/Chew SL DIRECTED PRN Ringer's Solution 1,000 mls @ 80 mls/hr 12/05/22 06:00 IV 01/03/23 23:59 INFUSION MIRTA Ciprofloxacin 400 mg in 200 mls @ 200 mls/hr 12/05/22 06:00 Cipro I.V. IVPB 12/05/22 18:00 PREOP [facility] IV Miscellaneous Supplies 1 each 12/05/22 06:00 Iv Access IV 01/03/23 23:59 DIRECTED MIRTA Ondansetron HCl 4 mg 12/04/22 21:11 Ondansetron 4 Mg/2 Ml Vial IVP Q4H PRN PRN Nausea / Vomiting Sodium Chloride 0 ml 12/05/22 06:00 Normal Saline Flush 10 Ml Syr IV 01/03/23 23:59 PRN PRN Sodium Chloride 0 ml 12/05/22 06:00 Normal Saline 10 Ml Vial IJ 01/03/23 23:59 DIRECTED PRN Sterile Water 0 ml 12/05/22 06:00 Water,Injection,Sterile 10 Ml Vial IJ 01/03/23 23:59 DIRECTED PRN PFSH Active Problems Active Problems: Problem Status Onset Code Hydronephrosis of left kidney N13.30 Steatosis E88.89 Duodenal nodule K31.[address] scan R93.5 Abnormal bowel habits R19.8 Cataracts, bilateral H26.9 Diabetic foot ulcer E11.621, L97.509 Nausea and vomiting R11.2 Screening for colon cancer Z12.11 CKD (chronic kidney disease) N18.9 JOSE (obstructive sleep apnea) G47.33 Depression with anxiety F41.8 Diabetic neuropathy E11.40 Obesity E66.9 Peripheral edema R60.9 Erectile dysfunction N52.9 Bowel habit changes R19.4 Vitamin B12 deficiency E53.8 Decreased hearing H91.90 Screening for STD (sexually transmitted disease) Z11.3 Neuropathic ulcer L98.499 Wound of right foot S91.301A Wound of left foot S91.302A Cellulitis of foot, right L03.115 Foreign body (FB) in soft tissue M79.5 Phimosis N47.1 Depression F32.9 HTN (hypertension) with goal to be determined I10 Diabetes E11.9 Medical History Medical History Fatty liver Surgical History Surgical History H/O vasectomy History of cholecystectomy Tobacco Smoking/Tobacco Use Status: Never Alcohol Alcohol Intake: current Alcohol intake frequency: holidays/special occasions only Substance Use Substance use: Never Substance use type: does not use Vital Signs and Lab Results Vital Signs Most Recent Vital Signs in EMR: Temp Pulse Resp BP Pulse Ox 36.2 C L 99 H 20 149/104 H 98 12/05/22 07:45 12/05/22 07:45 12/05/22 07:45 12/05/22 07:45 12/05/22 07:45 Lab Results Blood Type / Crossmatch: No Data to Display Complete Blood Count: White Blood Count 6.74 10^3/uL (4.4-10.8) 11/19/22 11:45 Red Blood Count 6.08 10^6/uL (4.36-5.78) H 11/19/22 11:45 Hemoglobin 15.0 g/dL (13.5-17.5) 11/19/22 11:45 Hematocrit 46.9 % (40.0-50.0) 11/19/22 11:45 Platelet Count 206 10^3/uL (130-400) 11/19/22 11:45 Complete Metabolic Panel: Sodium 141 mmol/L (136-145) 11/11/22 09:41 Potassium 4.2 mmol/L (3.5-5.1) 11/11/22 09:41 Chloride 104 mmol/L (98-107) 11/11/22 09:41 Carbon Dioxide 30.2 mmol/L (21.0-32.0) 11/11/22 09:41 BUN 5 mg/dL (7-18) L 11/11/22 09:41 Creatinine 1.3 mg/dL (0.70-1.30) 11/11/22 09:41 Est GFR (CKD-EPI 2020) 68.19 (mL/min/1.73m2) 11/11/22 09:41 Calcium 8.9 mg/dL (8.5-10.1) 11/11/22 09:41 Albumin 3.7 g/dL (3.4-5.0) 11/11/22 09:41 Glucose 126 mg/dL (74-106) H 11/11/22 09:41 Hemoglobin A1c 6.4 % (<5.7) H 12/04/22 10:00 Liver Function Panel: Alanine Aminotransferase (ALT/SGPT) 36 U/L (16-63) 11/11/22 09:41 Aspartate Amino Transf (AST/SGOT) 18 U/L (15-37) 11/11/22 09:41 Coagulation Panel: No Data to Display Cardiac Panel: No Data to Display Arterial Blood Gas: No Data to Display Venous Blood Gas: No Data to Display Pancreas Panel: No Data to Display Thyroid Panel: Thyroid Stimulating Hormone (TSH) 1.22 uIU/mL (0.36-3.74) 11/11/22 09:41 Infectious Disease: No Data to Display Blood Cultures: No Data to Display Toxicology Panel: No Data to Display Imaging and Studies Imaging and Studies Study information below may be from another EMR and interpreted by another provider. Please see original notes in EMR for more complete details. EKG Summary: 10/07: sinus tach, QTc >500 mS. Anesthesia Assessment and Plan Anesthesia History Personal History: No History of Anesthesia Complications Family History: No Family History of Anesthesia Complications Exercise Tolerance Exercise Tolerance: Metabolic Equivalents>4 Cardiac & Pulmonary Exam Cardiac Exam: Normal S1/S2 Heart Sounds Pulmonary Exam: Clear Bilateral Breath Sounds Implantable Cardiac Device Does patient have a Pacemaker or an ICD?: No Airway Exam Known Difficult Airway: No Mallampati Class: 2 Mouth Opening: Normal (> 3cm) Thyromental Distance: Greater than 3 cm Neck Range of Motion: Full ROM Neck Circumference: Normal Teeth Condition: Removable Dentures/Plates Upper ASA Classification ASA Score: ASA 2 Emergency Case?: No NPO Status NPO Status: NPO Clears >2 hours, Solids >8 hours Anesthesia Plan Resuscitation Status: Full Code Anesthesia Technique: General Anesthesia Airway Planned: Endotracheal Tube Monitors Used: Standard Monitors Preoperative Comments:: 46 yo male for EGD, colo, and cysto. Sig PMHx: hydronephrosis, membranous glomerulopathy (in remission), nausea, CKD, DM (a1c 6.4 12/05, dulaglutide, metformin), HTN, fatty liver, never smoker, JOSE occ EtOH, depression/anxiety.
--- NOTE | 2022-12-05 07:06 | W.PM.HP.N ---
Date of service: 12/05/22 Time of Service: 08:39 Assessment and Plan Assessment and plan (1) Calculus of distal left ureter: Status: Acute Assessment and plan: Once his GI endoscopy is completed, we will perform a cystoscopy and left retrograde pyelogram. If his stone is still present, we will be prepared to do ureteroscopy and stone manipulation. History of Present Illness History of Present Illness Chief Complaint: Ureteral stone Narrative: This is a 46 year old man who has been having left flank pain for the past 2 months. he has had 2 prior ED visits for this issue. At first, he believed the pain was related to a muscle spasm. Later in the course, he was found to have a small left distal ureteral stone. He no longer has left flank pain, but he is unaware of passing a stone. He has no frequency or urgency. He presents for possible stone manipulation. Review of Systems Narrative: No fevers or chills Cataracts. No dysphasia Diabetes with neuropathy. No thyroid Sleep apnea. No cough or hemoptysis No chest pain or palpitations No nausea, vomiting, hepatitis, ulcers, jaundice Neuropathy. No seizures, strokes No bleeding disorders or anemia No gout PFSH All Active Problems Calculus of distal left ureter (Acute) Hydronephrosis of left kidney (Acute) Steatosis (Acute) Duodenal nodule (Acute) Abnormal abdominal CT scan (Acute) Abnormal bowel habits (Acute) Cataracts, bilateral (Acute) Diabetic foot ulcer (Acute) Nausea and vomiting (Acute) Screening for colon cancer (Acute) CKD (chronic kidney disease) (Chronic) JOSE (obstructive sleep apnea) (Chronic) Depression with anxiety (Acute) Diabetic neuropathy (Acute) Obesity (Chronic) Peripheral edema (Acute) Erectile dysfunction (Acute) Bowel habit changes (Acute) Vitamin B12 deficiency (Acute) Decreased hearing (Acute) Screening for STD (sexually transmitted disease) (Acute) Neuropathic ulcer (Acute) Wound of right foot (Acute) Wound of left foot (Acute) Cellulitis of foot, right (Acute) Foreign body (FB) in soft tissue (Acute) Phimosis (Acute) Depression (Chronic) HTN (hypertension) with goal to be determined (Chronic) Diabetes (Chronic) Medical History Fatty liver Surgical History H/O vasectomy History of cholecystectomy Social History Smoking/Tobacco Use Status: Never Smoking risk assessment performed?: Yes Alcohol Intake: current Alcohol Intake frequency: holidays/special occasions only Drug use: Never Substance use type: does not use Household members: children Number of Children: 3 current occupation: [employer] What is your relationship status?: Panel score (0-1 are the most socially isolated patients): 0 Do you feel safe at home: Yes Do you feel safe in your relationship?: Yes Meds Allergies and Home Medications Allergies Allergy/AdvReac Type Severity Reaction Status Date / Time Penicillins Allergy Intermediate Anaphylaxsi Verified 12/03/22 14:40 s Home Medications Medication Instructions Recorded Confirmed Type metformin 1,000 mg tablet 1,000 mg PO BID 08/13/18 12/05/22 History vitamin B12 500 mcg-folic acid 400 2 tab PO DAILY 07/16/22 12/05/22 History mcg tablet citalopram 10 mg tablet (Celexa) 10 mg PO DAILY 07/25/22 12/05/22 History polyethylene glycol 3350 17 17 g PO DAILY 07/25/22 12/05/22 History gram/dose oral powder (Miralax) tadalafil 10 mg tablet 10 mg PO DAILY PRN 07/25/22 12/03/22 History ondansetron 4 mg disintegrating 4 mg PO Q8H PRN nausea and 09/23/22 12/03/22 Rx tablet vomiting #30 tabs gabapentin 600 mg tablet 600 mg PO TID 10/29/22 12/05/22 History famotidine 20 mg tablet 20 mg PO DAILY 11/03/22 12/05/22 History furosemide 20 mg tablet 10 mg PO DAILY 11/22/22 12/05/22 History dulaglutide 0.75 mg/0.5 mL 0.75 mg subcut QWEEK 11/26/22 12/05/22 History subcutaneous pen injector (Trulicity) bisacodyl 5 mg tablet,delayed 5 mg PO ONCE #4 tabs 11/28/22 12/05/22 Rx release (Dulcolax (bisacodyl)) polyethylene glycol 3350 17 17 g PO ONCE #238 grams 11/28/22 12/05/22 Rx gram/dose oral powder Exam Const General: cooperative Neck Neck: supple Resp Effort & Inspection: normal respiratory effort Auscultation: clear to auscultation bilaterally Cardio Rate: regular rate Rhythm: regular rhythm GI Inspection: obesity Palpation: soft Neuro General: patient alert, patient awake and patient oriented x3 Time Spent Time spent with Patient: <40 minutes Time was spent: counseling the patient
[2022-12-05] MEDS: Lactated Ringers 1,000 ML 80 ML IV (08:23)
[2022-12-05] MEDS: CIPROFLOXACIN 400 MG/200 ML BAG 200 MG IVPB (09:04)
[2022-12-05] MEDS: Lidocaine 2% Jelly 11 ML SYR (09:46)
[2022-12-05] MEDS: Omnipaque 300 MG/ML 50 ML BTL (09:50)
--- NOTE | 2022-12-05 09:56 | DI.RAD_ITS ---
Exam(s) XR RETROGRADE IN OR EXAM: XR RETROGRADE IN OR CLINICAL HISTORY: left ureteral stone TECHNIQUE: 2D and realtime digital imaging was performed. CONTRAST MATERIAL: Refer to procedure report. COMPARISON: CT CT ABDOMEN PELVIS W from 11/03/2022 FINDINGS: Fluoroscopy was provided for Dr. Franco during the performance of a retrograde evaluation of the zeferino l collecting system. Please refer to the procedure report for complete details. Ka,r=5.76 mGy IMPRESSION: RADIATION DOSE DELIVERED:
--- NOTE | 2022-12-05 09:59 | W.PM.DSUDISC ---
Date of service: 12/05/22 Time of Service: 10:05 Discharge Plan Disposition Patient Disposition: Home Condition: Good Discharge Details Reason For Visit: cystoscopy Attending Provider: Mac Delacruz Primary Care Provider: Dariana Méndez Home Meds and New Rx's Prescriptions: Continued metformin 1,000 mg tablet 1,000 mg PO BID vitamin F29-bzplu acid 500-400 mcg tablet 2 tab PO DAILY Rx Instructions: administer with a meal gabapentin 600 mg tablet 600 mg PO TID Trulicity 0.75 mg/0.5 mL pen injector 0.75 mg subcut QWEEK bisacodyl [Dulcolax (bisacodyl)] 5 mg tablet,delayed release (DR/EC) 5 mg PO ONCE Qty: 4 0RF Rx Instructions: Take according to provider's instructions for colonoscopy prep. polyethylene glycol 3350 17 gram/dose powder 17 g PO ONCE Qty: 238 0RF Rx Instructions: To be taken as directed by prescriber's office for colonoscopy prep. tadalafil 10 mg tablet 10 mg PO DAILY PRN Rx Instructions: administer approximately 30min before sexual activity; do not use more than 1 dose per 24hrs polyethylene glycol 3350 [Miralax] 17 gram/dose powder 17 g PO DAILY citalopram [Celexa] 10 mg tablet 10 mg PO DAILY furosemide 20 mg tablet 10 mg PO DAILY ondansetron 4 mg tablet,disintegrating 4 mg PO Q8H PRN (Reason: nausea and vomiting) Qty: 30 0RF famotidine 20 mg tablet 20 mg PO DAILY Patient Comments: Take 1 tablet by mouth once a day Discharge Instructions Additional Instructions: Followup with urology 6 to 8 weeks for renal US - can either be done in office or in diagnostic imaging Activity:: Activity as Tolerated Shower/Bathe:: 24 hours Diet:: As Tolerated Discharge Orders Discharge Orders: Discharge Order (Routine); Ordered 12/04/22 Ordered By: Mac Delacruz DS: Diagnosis Discharge Diagnosis (1) Calculus of distal left ureter: Status: Acute
--- NOTE | 2022-12-05 10:08 | W.PM.OP ---
Date of service: 12/05/22 Time of Service: 10:08 Operative Note Operative Note DATE OF PROCEDURE: 12/05/22 PRE-OP DIAGNOSIS: Left ureteral stone POST-OP DIAGNOSIS: other (same previously passed) PROCEDURE: Cystoscopy, left retrograde pyelogram, left semirigid ureteroscopy SURGEON: Jasvir Franco ANESTHESIA TYPE: General:No Airway Refer to Anesthesia Record ESTIMATED BLOOD LOSS: 0 PATHOLOGY: none sent COMPLICATIONS: None Patient was transported to: same day Patient's condition: stable Implants: none Indications: This is a 46-year-old gentleman who has been having abdominal discomfort. He actually had to emergency department visits for this complaint over the past 2 months. On one occasion, it was felt that he had a muscle spasm. On the other occasion, he was identified as having a 2 mm left distal ureteral stone. He is not aware that he passed any stones. He has not been having any pain in the past week or so. He presents for cystoscopy and retrograde pyelogram with possible ureteroscopy. Findings: no stone in distal ureter Procedure Description: The patient was brought to the operating room on 12/05/2022. He was given a dose of preoperative antibiotics. After successful induction of general anesthesia, he was placed in the dorsal lithotomy position. His genitalia was prepped and draped. 2% Xylocaine jelly was instilled into the urethra to act as a local anesthetic. A 22 [place]ian rigid cystoscope was passed through the urethra into the bladder. The urethra and bladder were inspected with a 30 degree lens. Both ureteral orifices appeared normal with no blood. There was no edema surrounding the left ureteral orifice. The left orifice was cannulated with a 5 [place]atian access catheter. Retrograde pyelogram was obtained by injecting Omnipaque through the access catheter under fluoroscopic guidance. 2 roundish filling defects were seen in the distal ureter. It was not clear to me whether these were air bubbles or not, so I went ahead and placed a Glidewire through the access catheter and maneuvered the wire up the left ureteral orifice. The access catheter and cystoscope were then withdrawn. The semirigid ureteroscope was passed through the urethra into the bladder. The scope was run up the left distal ureter to do pelvic area. No stones were seen. There was no erythema or edema noted along the ureter. Based on the ureteroscopic appearance, I suspect he already passed his stone. The scope and guidewire were removed. He tolerated the procedure well with no complications.
--- NOTE | 2022-12-05 10:22 | BOWEL_PTH ---
PATIENT: Charles Nick LOC: [facility] U#:[id number] AGE/SX: 46/M ROOM: RE12/05/[address]: Mac Delacruz MD : 1975 BED: DIS: 12/05/2022 SPEC #: [id number] RECD: 12/05/22 12:34 STATUS: LAURA REQ #: [id number] ARNOLD: 12/05/22 10:[address]: Mac Delacruz DEPT: Surgical Specimen RECD BY: Marie Brand ENTERED: 12/05/22 12:35 SP TYPE: Bowel OTHR DR: Dariana Méndez Tissues: 1 - BIOPSY BOWEL 2 - BIOPSY BOWEL Procedures: GROSS AND MICRO LEVEL 4 Comments: [id number]
--- NOTE | 2022-12-05 12:12 | W.ANESPOSTOP ---
Postoperative Evaluation Date, Time and Location Date Performed: 12/05/22 Time Performed: 11:50 Patient Location: PACU Vital Signs Most Recent Imported Vital Signs: Most Recent Vital Signs Temp Pulse Resp BP Pulse Ox 36.4 C L 73 13 135/91 H 94 12/05/22 11:54 12/05/22 11:54 12/05/22 11:54 12/05/22 11:54 12/05/22 11:54 Assessment Mental Status: Awake (Alert & Oriented to Patient Baseline) Airway and Respiratory Function: Patent airway with normal (patient baseline) respiratory exam Cardiovascular Function: Hemodynamically Stable Hydration Status: Adequately Hydrated Nausea & Vomiting: No Nausea or Vomiting Pain: Pain is tolerable per patient Peripheral Nerve Block: Patient did not receive a nerve block
== END 2022-12-05 13:22 | disposition home or self-care (01) ==
PROVIDERS: Urology; PCP Family Medicine; Visit Provider Surgery
PROC: (CPT 43251; principal; 2022-12-05 09:00)
PROC: (CPT 52005; 2022-12-05 09:00)
DX: N20.1 Calculus of ureter (principal); Z12.11 Encounter for screening for malignant neoplasm of colon; K63.5 Polyp of colon; K31.7 Polyp of stomach and duodenum
CPT/HCPCS: 52005; 43251; 45380; 88305; 74420; J0744; J1100; J2250; J2405; J2704; Q9967

== ENCOUNTER 2023-05-01 19:10 | Outpatient (REF) | payer OTHER, SELFPAY ==
[2023-05-01 21:01] LABS: Anion Gap 11.4 mmol/L (3-11); BUN 14 mg/dL (7-18); CO2 27.6 mmol/L (21.0-32.0); CREATININE 1.1 mg/dL (0.70-1.30); Chloride 105 mmol/L (98-107); Estimated GFR 82.81 (mL/min/1.73m2); Glucose 120 mg/dL (74-106); Magnesium 2.2 mg/dL (1.8-2.4); Potassium 4.1 mmol/L (3.5-5.1); Sodium 144 mmol/L (136-145)
== END 2023-05-01 19:11 | disposition home or self-care (01) ==
LOC: NCHCN 19:10
PROVIDERS: PCP Family Medicine; Visit Provider Nurse Practitioner Family
DX: I10 Essential (primary) hypertension (principal); E11.9 Type 2 diabetes mellitus without complications; E83.42 Hypomagnesemia; N18.30 Chronic kidney disease, stage 3 unspecified; K76.0 Fatty (change of) liver, not elsewhere classified
CPT/HCPCS: 80048; 83735

== ENCOUNTER 2023-10-23 13:03 | Outpatient (REF) | payer OTHER, SELFPAY ==
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
--- OUTSIDE RECORDS SUMMARY | 2023-10-23 13:08 | XMS_ITS | Continuity of Care Document ---
Author Name Unknown Address [address] [place] [address] Phone [facility] Address [address] [place] [address] Phone Care Team Providers Care Mold Yard Supervisor Name Role Phone YOCASTA Hoffman Primary Care Provider + UNKNOWN Attending Provider Unavailable MD Matias Montoya Primary Care Provider [phone] GRETCHEN Couch Attending Provider Unavail able YEN Matthews Attending Provider YEN Reyez Attending Provider Care Teams Patient Care Team Team Status: Active Member Role Status Toan Montoya MD Primary Care Provider Active Visit Care Team Team Status: Inactive Member Role Status Toan Montoya MD Primary Care Provider, Referring Provide r Active Maribel Matthews DPM Attending Provider Active Visit Care Team Team Status: Active Member Role Status Dates Martha Hoffman APRN Primary Care Provider Active UNKNOWN Attending Provider Active Visit Care Team Team Status: Active Member Role Status Toan Montoya MD Primary Care Provider Active Munira Couch RN Attending Provider Active Patient Care Team Team Status: Inactive Member Role Status Toan Montoya MD Primary Care Provider, Referring Provide r Active Naveen Reyez DPM Attending Provider Active Chief Complaint and Reason for Visit Chief Complaint Amb Documentation DM foot ulcer WOUND FOLLOW UP ok per HG Reason for Visit Acquired deformity o f foot Diabetic peripheral neuropathy associated with type 2 diabetes mellitus Skin ulcer of left great toe with fat layer exposed Allergies, Adverse Reactions, Alerts Allergen Type Severity Reaction Last Updated Verified Status Penicillins Allergy Anaphylaxis April 15, 2023 8:46am Yes Active Social History Smoking Status Status Start Date End Date Date of Observa tion Unknown if ever smoked April 01, 2023 10:31am Additional Data Assigned Sex Male Problems Active [...] PO daily April 01, 2023 12:00a m Vital Signs Vital Reading Result Reference Range Collection Date/Time Height 74 [in_i] April 02, 2023 1:29pm Weight 266.00 [lb_av] April 02 1:29pm Body Temperature 98 [degF] 97.6-99.6 April 02, 2023 1:29pm Heart Rate 86 /min 60-100 April 02, 2023 1:29pm Respiratory rate 18 /min -April 02, 2023 1:29pm Oxygen saturation by Pulse [...] Index) 34.1 kg/m2 April 15, 2023 8:46am Insurance Providers Guarantor MARY JO JADE Address [address] [facility] [address] Contact Info. Home Phone: Payer Policy Id Coverage Id Subscriber's Name Subscriber Id Effective Date Expiration Date UMR [id number] MARY JO JADE [id number] Encounters Encounter Location(s) Arrival/Admit Date Discharge/Depart Date Provider(s) Non-patient [facility] March [facility], 2023 11:59pm Unknown Non-patient / Non-visit [facility] Nonvisit April 01, 2023 10:24am null Departed Physician/Prov ider Office Visit [facility] April 02, 2023 1:21pm April 02, 2023 1:57pm Chreyl Matthews DPM Departed Physician/Prov ider Office Visit [facility] April 15, 2023 8:32am April 15, 2023 9:34am Naveen Reyez DPM Recent Diagnosis Onset Date Acquired deformity [...] noneactive Plan of Treatment Author Cheryl Matthews [facility] Authored April 02, 2023 2:04 pm Patient [...] to f/u in [address] Reyez. He is to call the office immediately if he notices any sudden changes. Patient left the office pleased. Future Tests Future scheduled test information is unavailable Pending Tests Pending diagnostic test information is unavailable Future Visits Future appointment information is unavailable Referrals to Other Providers Referral information is unavailable Future Procedures Future procedure information is unavailable Future Medications Future medication information is unavailable Patient Instructions Patient instructions are unavailable
--- OUTSIDE RECORDS SUMMARY | 2023-10-23 13:08 | XMS_ITS | Continuity of Care Document ---
Author Name Unknown Address [address] [place] [address] Phone [facility] Address [address] [place] [address] Phone Care Team Providers Care Script Coordinator Name Role Phone YOCASTA Hoffman Primary Care Provider + UNKNOWN Attending Provider Unavailable MD Matias Montoya Primary Care Provider [phone] GRETCHEN Couch Attending Provider Unavail able YEN Matthews Attending Provider Care Teams Patient Care Team Team Status: Active Member Role Status Dates Matias Montoya MD Primary Care Provider Active Patient Care Team Team Status: Inactive Member Role Status Dates Matias Montoya MD Primary Care Provider, Referring Provide r Active Maribel Matthews DPM Attending Provider Active Patient Care Team Team Status: Active Member Role Status Dates Martha Hoffman APRN Primary Care Provider Active UNKNOWN Attending Provider Active Patient Care Team Team Status: Active Member Role Status Dates Matias Montoya MD Primary Care Provider Active Munira Couch RN Attending Provider Active Chief Complaint and Reason for Visit Chief Complaint Amb Documentation DM foot ulcer Allergies, Adverse Reactions, Alerts Allergen Type Severity Reaction Last Updated Verified Status Penicillins Allergy Anaphylaxis April 02, 2023 1:29pm Y es Active Social History Smoking Status Status Start Date End Date Date of Observa tion Unknown if ever smoked April 01, 2023 10:31am Additional Data Assigned Sex Male Problems Active Problems Medical Problem Onset Date Status Foreign body in soft tissue Acti ve Diabetes Active Diabetic foot ulcer Active Neuropathy Active Neuropathic ulcer Active Cellulitis [...] 02, 2023 1:29pm Respiratory rate 18 /min 12-18 April 02, 2023 1:29pm Oxygen saturation by Pulse oximetry 99 % 92-100 April 02, 2023 1:29 pm BP Systolic 159 mm[Hg] 90-130 April 02, 2023 1:29pm BP Diastolic 113 mm[Hg] 70-80 April 02, 2023 1:29pm BMI (Body Mass Index) 34.1 kg/m2 March 152022 1:29pm Insurance Providers Guarantor MARY JO JADE Address [address] [facility] [address] Contact Info. Home Phone: Payer Policy Id Coverage Id Subscriber's Name Subscriber Id Effective Date Expiration Date [facility] [id number] MARY JO JADE [id number] Encounters Encounter Location(s) Arrival/Admit Date Discharge/Depart Date Provider(s) Non-patient / Non-visit [facility] [place] March 31, 2023 11:59pm Unknown Non-patient / Non-visit [facility] Nonvisit April 01, 2023 10:24am null Departed Physician/Prov ider Office Visit [facility] April 02, 2023 1:21pm April 02, 2023 1:57pm Cheryl Matthews DPM
--- OUTSIDE RECORDS SUMMARY | 2023-10-23 13:08 | XMS_ITS | Continuity of Care Document ---
Author Name Unknown Address [address] [place] [address] Phone [facility] Address [address] [place] [address] Phone Care Team Providers Care Supply Chain Assistant Name Role Phone MD Matias Montoya Primary Care Provider [phone] YEN Reyez Attending Provider YEN Matthews Attending Provider Care Teams Patient Care Team Team Status: Active Member Role Status Toan Montoya MD Primary Care Provider Active Visit Care Team Team Status: Inactive Member Role Status oTan Montoya MD Primary Care Provider, Referring Provide [...] Complaint and Reason for Visit Chief Complaint WOUND FOLLOW UP ok p er HG 2 WK FOLLOW UP 2 WEEK WOUND F/U Check toe wound - per pt is healed Reason for Visit Acquired deformity o f [...] Last Updated Verified Status Penicillins Allergy Anaphylaxis June 02, 2023 11: 43am Yes Active Social History Smoking Status Status Start Date End Date Date of Observa tion Unknown if ever smoked Mamadou phipps 2022 11:39am Additional Data Assigned Sex Male Problems Active [...] Range Collection Date/Time Height 74 [in_i] April 15 8:46am Weight [...] Index) 35.0 kg/m2 May 14, 2023 9:18am Height 74 [in_i] June 02, 2023 11:40am Weight 288.00 [lb_av] May 11:40am Body Temperature 97.8 [degF] 97.6-99.6 May 162022 11:40am Heart Rate 100 /min 60-100 June 02, 2023 11:40am Oxygen saturation by Pulse oximetry 98 % 92-100 June 02, 2023 11:40am BP Systolic 150 mm[Hg] 90-130 June 02, 2023 11:40am BP Diastolic 95 mm[Hg] 70-80 June 02, 2023 11:40am BMI (Body Mass Index) 36.9 kg/m2 2022 11:40am Insurance Providers Guarantor MARY JO JADE Address [address] [facility] [address] Contact Info. Home Phone: Payer Policy Id Coverage Id Subscriber's Name Subscriber Id Effective Date Expiration Date [facility] [id number] MARY JO JADE [id number] Encounters Encounter Location(s) Arrival/Admit Date Discharge/Depart Date Provider(s) Departed Physician/Prov ider Office Visit [facility] April 15, 2023 8:32am April 15, 2023 9:34am Naveen Reyez DPM Departed Physician/Prov ider Office Visit [facility] April 30, 2023 10:08am April 30, 2023 10:39am Cheryl Matthews DPM Departed Physician/Prov ider Office Visit [facility] May 14, 2023 9:02am May 14, 2023 9:37am Cheryl Matthews DPM Departed Physician/Prov ider Office Visit [facility] [place] June 02, 2023 11:19am June 02, 2023 12:04pm Cheryl Matthews DPM Recent Diagnosis Onset Date [...] layer exposed noneactive Plan of Treatment Author Tl Matthews [facility] Authored May 14, 2023 9: 37am Patient [...] to dressing changes every other day. New [employer] athletic shoes examined and noted to be supportive. He is to call [facility] to make appointment for his DM shoes. He is agreeable to the plan. Follow-up 2 weeks. Author Naveen Reyez [facility] Authored April 15, 2023 10: 27am Pt's feet were examined kellie handley Diabetic footcare was discussed with pt in [...] and fall risk. Return to [facility] sneakers if necessary. Please continue to check feet bilaterally on a regular basis. Patient's job does not require prolong ambulation or standing. Patient is to limit walking to a minimum. Patient is agreeable to the plan. Dr. Matthews [facility] Patient is to f/u in 2 weeks. He is to call the office immediately if he notices any sudden changes. Patient left the office pleased. Author Cheryl Matthews [facility] Authored April 30, 2023 10 :41am Patient [...] day. Patient was also instructed to call [facility] to make the appointment for his diabetic shoes. Patient is agreeable to the plan. Follow-up 2 weeks. Future Tests Future scheduled test information is unavailable Pending Tests Pending diagnostic test information is unavailable Future Visits Future appointment information is unavailable Referrals to Other Providers Referral information is unavailable Future Procedures Procedure Name Ordered Date Scheduled Date [employer] or Supply April 15, 2023 9:25am Future Medications Future medication information is unavailable Patient Instructions Patient instructions are unavailable
--- OUTSIDE RECORDS SUMMARY | 2023-10-23 13:08 | XMS_ITS | Continuity of Care Document ---
Author Name Unknown Address [address] [place] [address] Phone [facility] Address [address] [place] [address] Phone Care Team Providers Care Public Relations Consultant Name Role Phone YOCASTA Hoffman Primary Care [...] Active Naveen Reyez DPM Attending Provider Active Patient Care Team Team Status: Inactive Member Role Status Toan Montoya MD Primary Care Provider, Referring Provide r Active Maribel Matthews DPM Attending Provider Active Chief Complaint and Reason for Visit Chief Complaint Amb Documentation DM foot ulcer WOUND FOLLOW UP ok per HG 2 WK FOLLOW UP Reason for Visit Acquired deformity o f [...] Updated Verified Status Penicillins Allergy Anaphylaxis April 30, 2023 10:25a m Yes Active Social History Smoking Status Status Start Date End Date Date of Observa tion Unknown if ever smoked Rachael holland 2022 10:03am Additional Data Assigned Sex Male Problems Active [...] 02, 2023 1:29pm Respiratory rate 18 /min 09-01April 02, 2023 1:29pm Oxygen saturation by Pulse oximetry 99 % 92-100 April 02, 2023 1:29 pm BP Systolic 159 mm[Hg] 90-130 April 02, 2023 1:29pm BP Diastolic 113 mm[Hg] 70-80 April 02, 2023 1:29pm BMI (Body Mass Index) 34.1 kg/m2 March 152022 1:29pm Height 74 [in_i] April 15 8:46am Weight 266.00 [lb_av] April 15, 023 8:46am Body Temperature 98 [degF] 97.6-99.6 April 15, 2023 8:46am Heart Rate 86 /min 60-100 April 15 8:46am Respiratory rate 18 /min 09-01April 15, 2023 8:46am Oxygen saturation by Pulse [...] Index) 35.0 kg/m2 April 30, 2023 10:26am Insurance Providers Guarantor MARY JO JADE Address [address] [facility] [address] Contact Info. Home Phone: Payer Policy Id Coverage Id Subscriber's Name Subscriber Id Effective Date Expiration Date [facility] [id number] MARY JO JADE [id number] Encounters Encounter Location(s) Arrival/Admit Date Discharge/Depart Date Provider(s) Non-patient / [facility] March 31, 2023 11:59pm Unknown Non-patient / Non-visit [facility] Nonvisit April 01, 2023 10:24am null Departed Physician/Prov ider Office Visit [facility] April 02, 2023 1:21pm April 02, 2023 1:57pm Cheryl Matthews DPM Departed Physician/Prov ider [facility] April 15, 2023 8:32am April 15, 2023 9:34am Naveen Reyez DPM Departed Physician/Prov [facility] April 30, 2023 10:08am April 30, 2023 10:39am Cheryl Matthews DPM Recent Diagnosis Onset Date [...] layer exposed noneactive Plan of Treatment Author JaquiNorman Cassie [facility] Authored April 02, 2023 2:04 pm Patient [...] changes. Patient left the office pleased. Author Naveen Reyez [facility] Authored April 15, 2023 10: 27am Pt's feet were examined toda y. Diabetic footcare was discussed with pt in [...] of trip and fall risk. [facility] necessary. Please continue to check feet bilaterally on a regular basis. Patient's job does not require prolong ambulation or standing. Patient is to limit walking to a minimum. Patient is agreeable to the plan. Dr. Matthews started the process for DM shoes with [employer]. Patient is to f/u in 2 weeks. [...] Procedures Procedure Name Ordered Date Scheduled Date Acid Tank Cleaner or Supply April 15, 2023 9:25am Future Medications Future medication information is unavailable Patient Instructions Patient instructions are unavailable
[2023-10-23 15:06] LABS: Hemoglobin A1C 8.1 % (<5.7)
== END 2023-10-23 13:04 | disposition home or self-care (01) ==
LOC: NCHCN 13:03
PROVIDERS: PCP Family Medicine; Visit Provider Nurse Practitioner Family
DX: E11.9 Type 2 diabetes mellitus without complications (principal)
CPT/HCPCS: 83036

== ENCOUNTER 2023-11-24 11:19 | Outpatient (REF) | payer OTHER, SELFPAY ==
[2023-11-24 14:52] LABS: HCT 49.5 % (40.0-50.0); HGB 15.8 g/dL (13.5-17.5); MCH 24.8 pg (27.0-33.0); MCHC 31.9 % (32.0-36.0); MCV 78 fL (80-95); MPV 11.3 fL (8.0-11.0); Platelet Count 207 10^3/uL (130-400); RDW 15.4 % (11.8-14.1); RDW-SD 41.5 fL; WBC 8.06 10^3/uL (4.4-10.8)
[2023-11-24 14:53] LABS: RBC 6.38 10^6/uL (4.36-5.78)
[2023-11-24 16:11] LABS: ALT 37 U/L (16-63); AST 17 U/L (15-37); Albumin 3.6 g/dL (3.4-5.0); Alkaline Phosphatase 102 U/L (46-116); Anion Gap 9.5 mmol/L (3-11); BUN 11 mg/dL (7-18); Bilirubin, Total 0.4 mg/dL (0.2-1.0); CO2 28.5 mmol/L (21.0-32.0); CREATININE 1.3 mg/dL (0.70-1.30); Calcium 9.1 mg/dL (8.5-10.1); Chloride 103 mmol/L (98-107); Estimated GFR 67.76 (mL/min/1.73m2); Glucose 281 mg/dL (74-106); Potassium 4.5 mmol/L (3.5-5.1); Sodium 141 mmol/L (136-145); Total Protein 7.1 g/dL (6.4-8.2)
== END 2023-11-24 11:20 | disposition home or self-care (01) ==
LOC: NCHCN 11:19
PROVIDERS: PCP Family Medicine; Visit Provider Nurse Practitioner Family
DX: I10 Essential (primary) hypertension (principal); N18.9 Chronic kidney disease, unspecified; R60.0 Localized edema
CPT/HCPCS: 80053; 85027

== ENCOUNTER 2024-01-02 07:00 | Day surgery (SDC) | payer OTHER, SELFPAY ==
--- NOTE | 2024-01-01 16:04 | W.PM.DSUDISC ---
Date of service: 01/02/24 Time of Service: 09:06 Discharge Plan Disposition Patient Disposition: Home Condition: Good Discharge Details Reason For Visit: EGD Attending Provider: Mac eDlacruz Primary Care Provider: Olga Hoffman Home Meds and New Rx's Prescriptions: Continued gabapentin 600 mg tablet 600 mg PO TID cyanocobalamin (vitamin B-12) 1,000 mcg capsule 1,000 mcg PO DAILY magnesium oxide 400 mg magnesium tablet 400 mg PO DAILY tadalafil 10 mg tablet 20 mg PO DAILY PRN Rx Instructions: administer approximately 30min before sexual activity; do not use more than 1 dose per 24hrs furosemide 20 mg tablet 40 mg PO BID citalopram [Celexa] 10 mg tablet 20 mg PO DAILY amlodipine 10 mg tablet 10 mg PO DAILY Bydureon BCise 2 mg/0.85 mL auto-injector 2 mg subcut QWEEK dapagliflozin propanediol [Farxiga] 10 mg tablet 10 mg PO DAILY loratadine [Allergy Relief (loratadine)] 10 mg tablet 10 mg PO DAILY PRN montelukast 10 mg tablet 10 mg PO DAILY naltrexone 50 mg tablet 50 mg PO DAILY multivit with min-folic acid [Adult Multivitamin Gummies] 200 mcg tablet,chewable 1 tab PO DAILY polyethylene glycol 3350 17 gram/dose powder 17 g PO DAILY PRN ondansetron 4 mg tablet,disintegrating 4 mg PO Q8H PRN (Reason: nausea and vomiting) Qty: 30 0RF famotidine 20 mg tablet 20 mg PO DAILY Patient Comments: Take 1 tablet by mouth once a day Discharge Instructions Additional Instructions: Edu we were able to complete your upper endoscopy today without much difficulty. I was able to get the camera quite far down into your duodenum, and the majority of it looks very good and healthy. However, in the area where we previously removed the polyp, there is some new tissue growth. The nature of it, makes it impossible for me to remove with the endoscope today. I was able to get several biopsies of it though. Similar to last time, we will take a week or 2 for me to get the results of the biopsies. Hopefully, they will just show normal tissue that would be consistent with some scarring in the area. I do have some concerns, however, based on the way that it looks that it may represent recurrence of the polyp. If that is the case, then I will need to refer you down to [facility] for their opinion. Unlike the polyps that I removed previously, which was more elevated, this has a more carpeted nature to it, and if it is the case that it is tubulovillous adenoma, you may require an operation to remove completely. I do not want you to do anything different for right now, and like I said, once we have the results of the biopsy, the office will be in touch. If you have any questions in the meantime, please do not hesitate to call or ask at any point. 1. If tolerated, consume a soft, low fiber diet for 1-2 days. [address] Do not drive, drink alcohol, operate machinery, make critical decisions, or do activities that require coordination or balance for 24 hours. 3. You may experience a sore throat for 24 to 48 hours. You may use throat lozenges or gargle with warm salt water to relieve the discomfort. 4. Because air was put into your stomach during the procedure, you may experience some belching. 5. Go directly to the emergency room if you notice any of the following: Develop chills (warm to touch), or if you have a thermometer and your temperature is above 101 Difficulty breathing or difficultly swallowing Persistent vomiting Severe abdominal pain, other than gas cramps Severe chest pain Black, tarry stools Any bleeding ? exceeding one tablespoon 6. Call your physician if the site where your intravenous was started becomes red, swollen, painful, and warm to touch. 7. Your physician has reviewed your pre-procedure medications. Please continue to take those medications as previously ordered. You will be given specific information/education regarding any changes to your medications before leaving. Activity:: Activity as Tolerated Diet:: As Tolerated Discharge Orders Discharge Orders: Discharge Order (Routine); Ordered 01/01/24 Ordered By: Mac Delacruz DS: Diagnosis Discharge Diagnosis (1) Tubulovillous adenoma: Status: Acute Asessment and Plan: Follow-up on biopsy results
--- NOTE | 2024-01-01 16:05 | ENDO_ITS ---
Date of service: 01/02/24 Time of Service: 09:09 Endoscopy Report DATE OF PROCEDURE: 01/02/24 PRE-OP DIAGNOSIS: Duodenal tubulovillous adenoma PROCEDURE: EGD with biopsies SURGEON: Mac Delacruz ANESTHESIA TYPE: General:No Airway ESTIMATED BLOOD LOSS: 5 PATHOLOGY: other (Biopsies of duodenal polyp) COMPLICATIONS: None DISPOSITION: same day INDICATIONS: Charles is a 48-year-old male with a previous history of a incidental finding of a duodenal nodule. He underwent endoscopy which revealed a pedunculated polyp within the duodenal bulb. This was removed. Pathology was consistent with tubulovillous adenoma. He is here for surveillance endoscopy. PROCEDURE START TIME: 08:39 PROCEDURE END TIME: 08:54 FINDINGS: Sessile type polyp arising in the posterior wall of the duodenal bulb at the junction with the first portion of the duodenum PROCEDURE DESCRIPTION: After the initiation of anesthesia, and with the assistance of a bite block, I advanced a standard gastroscope through the mouth past the hypopharynx and into the esophagus.? Under the direct vision of the scope, I advanced down the esophagus towards the stomach.? The upper, mid, and lower portions of the esophagus were all normal-appearing. The Z-line was regular at 38 cm from the incisors. The camera was advanced down into the stomach, and it was insufflated into the rugae were obliterated. The gastric mucosa was all normal and healthy appearing. Advanced down around the incisura angularis towards the pylorus. This area also appeared normal. Next, I advanced the camera through the pylorus into the duodenal bulb. Along the posterior posterior wall of the duodenal bulb, at the junction with the first portion of the duodenum (an area similar to previous) with some heaped up tissue that appeared consistent with a duodenal polyp. Unlike the previous polyp which was quite pedunculated. This was much more sessile. I would estimate it to be about 0.5 cm in its longest dimension. I was able to navigate past it without any issues. I advanced the camera down to the third portion of the duodenum. With slow retraction, the duodenal mucosa was carefully examined. All the other visualized portions appeared normal. I brought the camera back up to the polypoid area, and despite several efforts to gain adequate exposure, I did not see a clear area to perform any complete polypectomy. I did perform some cold forceps biopsies of the area. there was an appropriate amount of bleeding, but nothing concerning. I then brought the camera back up into the stomach and emptied it completely. The camera was then removed along the length of the esophagus without any issues. The patient was a llowed awaken from anesthesia and transferred back to the recovery unit.
--- NOTE | 2024-01-01 19:25 | W.ANESPRE ---
General Info Date of Service Date Performed: 01/02/24 Height: 6 ft 3 in Weight: 134.263 kg Body Mass Index (BMI): 37.0 Surgical Procedure: Operation Date: 01/02/24 08:35 Proposed Procedure Side Surgeon p Gastroscopy Mac Delacruz MD Meds Allergies and Home Medications Allergies Allergy/AdvReac Type Severity Reaction Status Date / Time Penicillins Allergy Intermediate Anaphylaxsi Verified 01/02/24 07:08 s Home Medication Medication Instructions Recorded ondansetron 4 mg disintegrating 4 mg PO Q8H PRN nausea and 09/23/22 tablet vomiting #30 tabs gabapentin 600 mg tablet 600 mg PO TID 10/29/22 famotidine 20 mg tablet 20 mg PO DAILY 11/03/22 amlodipine 10 mg tablet 10 mg PO DAILY 11/10/23 citalopram 10 mg tablet (Celexa) 20 mg PO DAILY 11/10/23 dapagliflozin propanediol 10 mg 10 mg PO DAILY 11/10/23 tablet (Farxiga) exenatide microspheres 2 mg/0.85 2 mg subcut QWEEK 11/10/23 mL subcutaneous auto-injector ([employer]) furosemide 20 mg tablet 40 mg PO BID 11/10/23 loratadine 10 mg tablet (Allergy 10 mg PO DAILY PRN 11/10/23 Relief (loratadine)) montelukast 10 mg tablet 10 mg PO DAILY 11/10/23 naltrexone 50 mg tablet 50 mg PO DAILY 11/10/23 tadalafil 10 mg tablet 20 mg PO DAILY PRN 11/10/23 multivitamin with minerals-folic 1 tab PO DAILY 11/18/23 acid 200 mcg chewable tablet (Adult Multivitamin Gummies) polyethylene glycol 3350 17 17 g PO DAILY PRN 12/03/23 gram/dose oral powder cyanocobalamin (vitamin B-12) 1,000 mcg PO DAILY 12/30/23 1,000 mcg capsule magnesium oxide 400 mg PO DAILY 12/30/23 Current Visit Medications: Current Medications Generic Name Dose Route Start Last Admin Trade Name Freq PRN Reason Stop Dose Admin Hyoscyamine Sulfate 0.125 mg 01/01/24 16:07 Hyoscyamine 0.125 Mg Sl/Oral/Chew SL 01/31/24 16:06 DIRECTED PRN Ringer's Solution 1,000 mls @ 80 mls/hr 01/02/24 06:00 IV 01/13/24 23:59 INFUSION MIRTA IV Miscellaneous Supplies 1 each 01/02/24 06:00 Iv Access IV 01/13/24 23:59 DIRECTED MIRTA Ondansetron HCl 4 mg 01/01/24 16:07 Ondansetron 4 Mg/2 Ml Vial IVP 01/31/24 16:06 Q4H PRN PRN Nausea / Vomiting Sodium Chloride 0 ml 01/02/24 06:00 Normal Saline Flush 10 Ml Syr IV 01/13/24 23:59 PRN PRN Sodium Chloride 0 ml 01/02/24 06:00 Normal Saline 10 Ml Vial IJ 01/13/24 23:59 DIRECTED PRN Sterile Water 0 ml 01/02/24 06:00 Water,Injection,Sterile 10 Ml Vial IJ 01/13/24 23:59 DIRECTED PRN PFSH Active Problems Active Problems: Problem Status Onset Code Type 2 diabetes mellitus with diabetic nephropathy E11.21 Type 2 diabetes mellitus without complication E11.9 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 Tubular adenoma ~12/04/22 D36.9 Hydronephrosis of left kidney N13.30 Steatosis E88.89 Duodenal nodule K31.[address] scan R93.5 Abnormal bowel habits R19.8 Cataracts, bilateral H26.9 Diabetic foot ulcer E11.621, L97.509 Nausea and vomiting R11.2 Screening for colon cancer Z12.11 CKD (chronic kidney disease) N18.9 JOSE (obstructive sleep apnea) G47.33 Depression with anxiety F41.8 Diabetic neuropathy E11.40 Obesity E66.9 Peripheral edema R60.9 Bowel habit changes R19.4 Vitamin B12 deficiency E53.8 Decreased hearing H91.90 Screening for STD (sexually transmitted disease) Z11.3 Neuropathic ulcer L98.499 Wound of right foot S91.301A Wound of left foot S91.302A Cellulitis of foot, right L03.115 Foreign body (FB) in soft tissue M79.5 Phimosis N47.1 Depression F32.9 HTN (hypertension) with goal to be determined I10 Diabetes E11.9 Medical History Medical History Erectile dysfunction Anxiety Calculus of distal left ureter Fatty liver Surgical History Surgical History History of colonoscopy with polypectomy (~12/04/22) History of esophagogastroduodenoscopy (EGD) (~12/04/22) H/O vasectomy History of cholecystectomy Tobacco Smoking/Tobacco Use Status: Never Alcohol Alcohol Intake: current Alcohol intake frequency: holidays/special occasions only Substance Use Substance use: Never Substance use type: does not use Vital Signs and Lab Results Vital Signs Most Recent Vital Signs in EMR: Temp Pulse Resp BP Pulse Ox 36.4 C L 95 H 18 150/96 H 95 01/02/24 07:30 01/02/24 07:30 01/02/24 07:30 01/02/24 07:30 01/02/24 07:30 Lab Results Blood Type / Crossmatch: No Data to Display Complete Blood Count: No Data to Display Complete Metabolic Panel: No Data to Display Liver Function Panel: No Data to Display Coagulation Panel: No Data to Display Cardiac Panel: No Data to Display Arterial Blood Gas: No Data to Display Venous Blood Gas: No Data to Display Pancreas Panel: No Data to Display Thyroid Panel: No Data to Display Infectious Disease: No Data to Display Blood Cultures: No Data to Display Toxicology Panel: No Data to Display Imaging and Studies Imaging and Studies Study information below may be from another EMR and interpreted by another provider. Please see original notes in EMR for more complete details. EKG Summary: 10/07: sinus tach, QTc >500 mS. Anesthesia Assessment and Plan Anesthesia History Personal History: No History of Anesthesia Complications Family History: No Family History of Anesthesia Complications Exercise Tolerance Exercise Tolerance: Metabolic Equivalents>4 Cardiac & Pulmonary Exam Cardiac Exam: Normal S1/S2 Heart Sounds Pulmonary Exam: Clear Bilateral Breath Sounds Implantable Cardiac Device Does patient have a Pacemaker or an ICD?: No Airway Exam Known Difficult Airway: No Mallampati Class: 2 Mouth Opening: Normal (> 3cm) Thyromental Distance: Greater than 3 cm Neck Range of Motion: Full ROM Neck Circumference: Normal Teeth Condition: Removable Dentures/Plates Upper ASA Classification ASA Score: ASA 3 Emergency Case?: No NPO Status NPO Status: NPO Clears >2 hours, Solids >8 hours Anesthesia Plan Resuscitation Status: Full Code Anesthesia Technique: General Anesthesia Airway Planned: Natural Airway Monitors Used: Standard Monitors Preoperative Comments:: 46 yo male for EGD. Sig PMHx: hydronephrosis, membranous glomerulopathy (in remission), nausea, CKD, DM (11/08 A1c 8.1, dulaglutide, metformin), HTN (amlodipine), fatty liver, never smoker, JOSE occ EtOH, depression/anxiety. Previous Anes: - EGD/colo/cysto, hart 2 grade 1, easy mask. - Circ, prop, natural airway, no issues.
[2024-01-02 07:30] VITALS: BP 150/96; PULSE 95; RESP 18; TEMP 36.4; O2SAT 95
[2024-01-02] MEDS: Lactated Ringers 1,000 ML 80 ML IV (07:33)
[2024-01-02 07:51] VITALS: BMI 37.0
--- NOTE | 2024-01-02 08:41 | BOWEL_PTH ---
PATIENT: Charles Nick LOC: [facility] U#:[id number] AGE/SX: 48/M ROOM: RE01/02/[address]: Mac Delacruz MD : 1975 BED: DIS: 01/02/2024 SPEC #: [id number] RECD: 01/02/24 12:05 STATUS: LAURA RE #: [id number] ARNOLD: 01/02/24 08:[address]: Mac Delacruz DEPT: Surgical Specimen RECD BY: Marie Brand ENTERED: 01/02/24 12:06 SP TYPE: Bowel OTHR DR: Olga Hoffman Tissues: 1 - BIOPSY BOWEL Procedures: GROSS AND MICRO LEVEL 4 IMMUNOPEROXIDASE STAIN Comments: [id number]
[2024-01-02 09:00] VITALS: BP 139/95; PULSE 92; RESP 16; TEMP 36.1; O2SAT 93
--- NOTE | 2024-01-02 09:28 | W.ANESPOSTOP ---
Postoperative Evaluation Date, Time and Location Date Performed: 01/02/24 Time Performed: 09:29 Patient Location: Day Surgery Unit Vital Signs Most Recent Imported Vital Signs: Most Recent Vital Signs Temp Pulse Resp BP Pulse Ox 36.1 C L 92 H 16 139/95 H 93 01/02/24 09:00 01/02/24 09:00 01/02/24 09:00 01/02/24 09:00 01/02/24 09:00 Pain Score Most Recent Pain Score: Most Recent Pain Score Pain Level 0 01/02/24 07:30 Assessment Mental Status: Awake (Alert & Oriented to Patient Baseline) Airway and Respiratory Function: Patent airway with normal (patient baseline) respiratory exam Cardiovascular Function: Hemodynamically Stable Hydration Status: Adequately Hydrated Nausea & Vomiting: No Nausea or Vomiting Pain: Pt. Denies Any Pain Peripheral Nerve Block: Patient did not receive a nerve block
[2024-01-02 09:30] VITALS: BP 138/95; PULSE 78; RESP 16; TEMP 36.3; O2SAT 97
== END 2024-01-02 09:45 | disposition home or self-care (01) ==
PROVIDERS: PCP Nurse Practitioner Family; Visit Provider Surgery
PROC: 0DJ68ZZ Inspection of Stomach, Via Natural or Artificial Opening Endoscopic (ICD-10-PCS; CPT 43235; principal; 2024-01-02 08:30)
DX: I10 Essential (primary) hypertension; C17.0 Malignant neoplasm of duodenum
CPT/HCPCS: 43239; 88305; 88361; J2405; J2704

== ENCOUNTER → 2024-01-26 03:30 | Outpatient (CLI) | payer OTHER, SELFPAY ==
--- NOTE | 2024-01-26 07:45 | DI.MRI_ITS ---
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 CONTRAST MATERIAL: IV Contrast: 20 mL of Dotarem contrast administered. COMPARISON: CT CT CHEST PE ABD PELVIS W from 09/23/[address] ABDOMEN PELVIS W from 11/03/2022 MR MR PELVIS WO/W from 01/26/2024 FINDINGS: Liver: No evidence of a hepatic mass. Pancreas: There is a tiny 4 mm cyst in the body of the pancreas. No solid pancreatic masses are seen . No peripancreatic fluid collections are present. The pancreatic duct is within normal limits. Gallbladder and Bile Ducts: The gallbladder is absent. There is no intrahepatic biliary ductal dilat ation. The common duct measures 1 cm. This is likely secondary to the post cholecystectomy state. Adrenals: There is no evidence of an adrenal mass. Kidneys: The kidneys show normal size and signal. No evidence of renal mass or obstruction is seen. Spleen: Unremarkable. Bowel: There is again seen a 2 cm mass in the descending duodenum. (Series 5001, image 23). There is a 5 mm nodule on the posterior wall of a loop of small bowel in the central abdomen (series 5001, mami ge 28). Several loops of small bowel are not distended or opacified well enough for evaluation. No ev idence of bowel obstruction. Aorta: Unremarkable. Soft Tissues: Unremarkable. No abdominal ascites. Bone: No findings to suggest osseous metastatic disease. Lymph Nodes: No abdominal adenopathy. IMPRESSION: 1. 2 cm mass seen in the descending duodenum. 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 2. 5 mm nodule along the posterior wall of a loop of small bowel in the central abdomen. This may sim ply be enteric contents versus mass. 3. No evidence of abdominal metastatic disease. DATA REPOSITORY:
--- NOTE | 2024-01-26 07:45 | DI.MRI_ITS ---
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 CONTRAST MATERIAL: IV Contrast: mL of Dotarem contrast administered. COMPARISON: No exams were available for comparison FINDINGS: The examination is limited due to patient motion artifact. Bowel: Visualized bowel in the pelvis shows no evidence of obstruction. No bowel wall thickening is seen. There is no evidence of an acute appendicitis. There is a question of a polyp in the proximal sigmoid colon measuring 1.5 cm in length. (Series [id number], image 19). Urinary bladder: Unremarkable. Peritoneum: No ascites. Aorta: The aorta and its visualized runoff are unremarkable. Soft Tissues: Unremarkable. Bone: Unremarkable. Lymph Nodes: Unremarkable. Enhancement: Unremarkable. IMPRESSION: 1. Question or proximal sigmoid colon polyp. Colonoscopy is recommended for further evaluation. 2. No evidence of pelvic metastatic disease. DATA REPOSITORY:
[2024-01-26] MEDS: Gadoterate meglumine 20 ML VIAL IVP (13:18)
[2024-01-26] MEDS: Normal Saline - Diluent 50 ML VIAL IJ (13:20)
== END ==
PROVIDERS: PCP Nurse Practitioner Family; Visit Provider Surgery
DX: F41.8 Other specified anxiety disorders (principal); I10 Essential (primary) hypertension; E11.21 Type 2 diabetes mellitus with diabetic nephropathy; C17.0 Malignant neoplasm of duodenum; G62.9 Polyneuropathy, unspecified; E11.40 Type 2 diabetes mellitus with diabetic neuropathy, unspecified; G47.33 Obstructive sleep apnea (adult) (pediatric); N18.9 Chronic kidney disease, unspecified; K76.0 Fatty (change of) liver, not elsewhere classified; E88.89 Other specified metabolic disorders
CPT/HCPCS: 72197; 74183

== ENCOUNTER 2024-02-02 11:37 | Outpatient (REF) | payer OTHER, SELFPAY ==
[2024-02-02 14:48] LABS: Abs Immature Grans 0.04 10^3/uL (0.0-0.06); Absolute Basophil Count 0.05 10^3/uL (0.0-0.2); Absolute Eosinophil Count 0.12 10^3/uL (0.0-0.7); Absolute Lymphocyte Count 1.83 10^3/uL (1.2-3.4); Absolute Monocyte Count 0.37 10^3/uL (0.1-0.8); Absolute Neutrophil Count 5.77 10^3/uL (1.2-6.7); Basophils % 0.6 %; Eosinophils % 1.5 %; HCT 49.7 % (40.0-50.0); HGB 15.6 g/dL (13.5-17.5); Immature Grans % 0.5 %; Lymphocytes % 22.4 %; MCH 24.5 pg (27.0-33.0); MCHC 31.4 % (32.0-36.0); MCV 78 fL (80-95); MPV 11.7 fL (8.0-11.0); Monocytes % 4.5 %; Neutrophils % 70.5 %; Platelet Count 208 10^3/uL (130-400); RBC 6.37 10^6/uL (4.36-5.78); RDW-SD 41.3 fL; WBC 8.18 10^3/uL (4.4-10.8)
[2024-02-02 14:54] LABS: ALT 38 U/L (16-63); AST 18 U/L (15-37); Albumin 3.8 g/dL (3.4-5.0); Alkaline Phosphatase 94 U/L (46-116); Anion Gap 8.5 mmol/L (3-11); BUN 13 mg/dL (7-18); Bilirubin, Total 0.4 mg/dL (0.2-1.0); CO2 31.5 mmol/L (21.0-32.0); CREATININE 1.2 mg/dL (0.70-1.30); Calcium 9.3 mg/dL (8.5-10.1); Chloride 98 mmol/L (98-107); Estimated GFR 74.13 (mL/min/1.73m2); Glucose 234 mg/dL (74-106); Potassium 4.2 mmol/L (3.5-5.1); Sodium 138 mmol/L (136-145); Total Protein 7.4 g/dL (6.4-8.2)
[2024-02-02 15:17] LABS: Diff Comment RBC Morph Reviewed; RBC Morphology Normal
[2024-02-02 15:25] LABS: Hemoglobin A1C 8.2 % (<5.7)
== END 2024-02-02 11:38 | disposition home or self-care (01) ==
LOC: NCHCN 11:37
PROVIDERS: PCP Nurse Practitioner Family; Visit Provider Nurse Practitioner Family
DX: N18.30 Chronic kidney disease, stage 3 unspecified (principal); I10 Essential (primary) hypertension; E11.9 Type 2 diabetes mellitus without complications
CPT/HCPCS: 80053; 83036; 85025

== ENCOUNTER 2024-02-24 14:22 | Outpatient (REF) | payer OTHER, SELFPAY | END 2024-02-24 14:23 | disposition home or self-care (01) | LOC: LBN 14:22 | PROVIDERS: PCP Nurse Practitioner Family; Visit Provider Podiatrist | DX: L97.512 Non-pressure chronic ulcer of other part of right foot with fat layer exposed (principal) | CPT/HCPCS: 87077; 87070; 87075; 87186; 87205 ==

== ENCOUNTER → 2024-02-26 00:25 | Outpatient (CLI) | payer OTHER, SELFPAY ==
--- NOTE | 2024-02-26 | DI.CT_ITS ---
Exam(s) CT ABDOMEN PELVIS W EXAM: CT ABDOMEN PELVIS W CLINICAL HISTORY: DUODENAL CANCER C17.0 SURGICAL PLANNING TECHNIQUE: Imaging Protocol: Axial computed tomography images with coronal and sagittal reformatted images were created and reviewed. CONTRAST MATERIAL: Intravenous: Omnipaque 350 Contrast volume:100 mL Oral: Yes COMPARISON: CT CT CHEST PE ABD PELVIS W from 09/23/[address] ABDOMEN PELVIS W from 11/03/2022 MR MR ABDOMEN WO/W from 01/26/2024 FINDINGS: ABDOMEN: Lung Bases: Normal where visualized. Liver: There is decreased attenuation of the liver suggesting fatty infiltration. No measurable mass . Portal, Superior Mesenteric, and Splenic Veins: Unremarkable. Gallbladder and Biliary Tract: Status post cholecystectomy. No significant biliary ductal dilatation . Pancreas: Normal density, no abnormal calcifications or inflammatory process. Spleen: Normal. Adrenals: No masses seen. Kidneys: Normal size, contour and axis. No radiodense stones or obstructive uropathy. No masses seen. Abdominal Aorta: Abdominal portion non-dilated. Bowel: Known mass in the descending duodenum is not well visualized on the current examination second jonny to poor distension of the bowel at this region. The bowel is otherwise unremarkable without evid ence of obstruction or bowel wall thickening. No evidence of appendicitis. Peritoneal Cavity: No ascites, collection or mesenteric inflammatory response. No free air. Lymph Nodes: Within normal limits. Bones: Within normal limits for the patient's age. Soft Tissues: Unremarkable. PELVIS: Bladder: Symmetric distention, no gross wall thickening. Reproductive Organs: Unremarkable as visualized. Lymph Nodes: There is an enlarged 2.5 x 1.4 cm right inguinal lymph node. Bones: Within normal limits for the patient's age. IMPRESSION: 1. The patient's known mass in the duodenum was not visualized on the current examination due to inco mplete distension of the bowel at this region. The bowel is otherwise unremarkable. 2. Enlarged 2.5 x 1.4 cm right inguinal lymph node. 3. Findings suggestive fatty infiltration of the liver. RADIATION DOSE DELIVERED: Total DLP DATA REPOSITORY: All CT scans at this facility are submitted to the National Radiology Data Registry (NRDR) Dose Index Registry (DIR) with the [employer] (ACR). RADIATION OPTIMIZATION: All CT scans at this facility use at least one of these dose optimization te chniques: automated exposure control; mA and/or kV adjustment per patient size (includes targeted exa ms where dose is matched to clinical indication); or iterative reconstruction.
[2024-02-26] MEDS: Omnipaque 350 MG/ML 500 ML BTL-Imaging package IJ (10:33)
[2024-02-26] MEDS: Normal Saline - Diluent 50 ML VIAL IJ (10:34)
[2024-02-26] MEDS: Barium Sulfate 2% W/V-Berry Smoothie 450 ML BTL PO ×2 (10:35→10:37)
[2024-02-26 12:41] LABS: ALT 36 U/L (16-63); AST 16 U/L (15-37); Albumin 3.5 g/dL (3.4-5.0); Alkaline Phosphatase 104 U/L (46-116); Anion Gap 5.8 mmol/L (3-11); BUN 14 mg/dL (7-18); Bilirubin, Total 0.3 mg/dL (0.2-1.0); CO2 31.2 mmol/L (21.0-32.0); CREATININE 1.1 mg/dL (0.70-1.30); Calcium 9.2 mg/dL (8.5-10.1); Chloride 98 mmol/L (98-107); Estimated GFR 82.29 (mL/min/1.73m2); Ferritin 35 ng/mL (26-388); Glucose 275 mg/dL (74-106); Potassium 3.7 mmol/L (3.5-5.1); Sodium 135 mmol/L (136-145); Total Protein 7.7 g/dL (6.4-8.2)
[2024-02-26 22:53] LABS: CEA 1.7 ng/mL (See Note)
== END ==
PROVIDERS: Surgery; PCP Nurse Practitioner Family; Visit Provider Surgery
DX: I10 Essential (primary) hypertension (principal); E11.21 Type 2 diabetes mellitus with diabetic nephropathy; E53.8 Deficiency of other specified B group vitamins; E88.89 Other specified metabolic disorders; C17.0 Malignant neoplasm of duodenum; G62.9 Polyneuropathy, unspecified; K76.0 Fatty (change of) liver, not elsewhere classified
CPT/HCPCS: 80053; 74177; 82378; 82728

== ENCOUNTER 2024-03-24 14:55 | Emergency (ER) | payer OTHER, SELFPAY ==
[2024-03-24] VITALS (22 sets, daily range): BP systolic 123–155; BP diastolic 79–103; PULSE 93–115; RESP 13–23; TEMP 35.7; O2SAT 96–99
--- NOTE | 2024-03-24 15:00 | RT.EKG_ITS ---
APPROVED REPORT Exam: Resting ECG Reason for Exam: Hypotension Patient Location: E HR:112 bpm ECG Measurements Heart Rate 112 AXIS OH 152 P 54 QRSd 103 QRS 70 QT 371 T -52 QTc 507 Conclusion Sinus tachycardia...rate> 99 Nonspecific T abnormalities, inferior leads...T <-0.10mV, II III aVF Prolonged QT interval...QTc >500mS I have reviewed and interpreted ECG and agree with software generated interpretation.
--- NOTE | 2024-03-24 15:00 | DI.CT_ITS ---
Exam(s) CT CHEST PE ABD PELVIS W EXAM: CT CHEST PE ABD PELVIS W CLINICAL HISTORY: postop 3wk whipple duod ca, hypo tachy, vomiting. TECHNIQUE: Imaging Protocol: Axial CT angiography was performed with multi-slice acquisition and mu lti-planar and/or 3D reconstructions. CONTRAST MATERIAL: Intravenous: Omnipaque 350contrast volume:100 mL COMPARISON: CT CT CHEST PE ABD PELVIS W from 09/23/[address] ABDOMEN PELVIS W from 11/03/[address] ABDOMEN PELVIS W from 02/26/2024 FINDINGS: CHEST: Tracheobronchial tree: Patent where visualized. There is no bronchiectasis. Pulmonary parenchyma: There is scarring or atelectasis seen in the left lung base. No focal consolid ating infiltrates are seen. No pulmonary nodules are seen. Pulmonary Arteries: No evidence of filling defect to suggest pulmonary emboli. There is artifact seen in the main and right and left pulmonary arteries but no evidence of a thrombus. Mediastinum and Yuliya: No dominant adenopathy or fluid collection. The esophagus is unremarkable. Visualized thyroid gland: Unremarkable. Pleura: No effusion or pneumothorax. Heart: The heart is not dilated. No coronary artery calcifications are seen. No pericardial effusion. Aorta: Thoracic aorta non-dilated. No evidence of dissection. Bones: Within normal limits for the patient's age. Soft tissues: Unremarkable. ABDOMEN: Liver: Normal density. No measurable mass. Portal, Superior Mesenteric, and Splenic Veins: Unremarkable. Gallbladder and Biliary Tract: The patient is status post Whipple. The gallbladder is been removed. There is pneumobilia present. Pancreas: The head of the pancreas and uncinate process have been removed. In the surgical bed there is fluid present. There is extra luminal air seen in the surgical bed with an air-fluid level. It does appear to be partially in capsulated (series 13 images 336 through 370. The fluid extends super iorly into the region of the [place] hepatis. Spleen: Normal. Adrenals: No masses seen. Kidneys: Normal size, contour and axis. No radiodense stones or obstructive uropathy. No masses seen. Abdominal Aorta: Abdominal portion non-dilated. Bowel: There is no evidence of bowel obstruction. There has been resection of the distal stomach wit h a gastroenteric anastomosis. There is mild thickening of the wall of the proximal duodenum loop. No evidence of appendicitis. Peritoneal Cavity: No ascites, collection or mesenteric inflammatory response. No free air. Lymph Nodes: Mildly prominent lymph nodes are seen in the upper abdomen which may be reactive. Bones: Within normal limits for the patient's age. There is L5 spondylolysis but no spondylolisthesi s. Soft Tissues: There is a small fat containing umbilical hernia. PELVIS: Bladder: Symmetric distention, no gross wall thickening. Reproductive Organs: Unremarkable as visualized. Lymph Nodes: Within normal limits. Bones: Within normal limits. IMPRESSION: 1. No evidence pulmonary embolism, thoracic aortic dissection or aneurysm. 2. No acute pulmonary process. 3. Status post Whipple's procedure. 4. There is a partially in capsulated air fluid collection in the pancreatic bed measuring 4.9 x 1.9 cm near the surgical clips. Abscess should be considered. There is fluid seen more superiorly above the duodenum and medial to the liver. There is also extra luminal air seen in this area. 5. Findings were discussed with Dr. Barillas at 5:07 p.m. on 03/24/2024. RADIATION DOSE DELIVERED: 2,020.19mGy.cm Total DLP DATA REPOSITORY: All CT scans at this facility are submitted to the National Radiology Data Registry (NRDR) Dose Index Registry (DIR) with the [employer] (ACR). RADIATION OPTIMIZATION: All CT scans at this facility use at least one of these dose optimization te chniques: automated exposure control; mA and/or kV adjustment per patient size (includes targeted exa ms where dose is matched to clinical indication); or iterative reconstruction.
--- NOTE | 2024-03-24 15:18 | W.ED.GENAD ---
Discharge Plan Disposition Patient Disposition: Transfer-Acute Inpatient Care Specific Acute Inpt Facility: [facility] Condition: Serious Discharge Details Chief Complaint: Abd Prob Clinical Impression: Acute dehydration, Acidosis, Intra-abdominal abscess Primary Care Provider: Olga Hoffman ED Provider: Edu Barillas Home Meds and New Rx's Prescriptions: No Action gabapentin 600 mg tablet 600 mg PO TID PRN magnesium oxide 400 mg magnesium tablet 400 mg PO DAILY furosemide 20 mg tablet 40 mg PO BID Hold Instructions: per pcp citalopram [Celexa] 10 mg tablet 40 mg PO DAILY dapagliflozin propanediol [Farxiga] 10 mg tablet 10 mg PO DAILY Hold Instructions: perpcp montelukast 10 mg tablet 10 mg PO DAILY ondansetron 4 mg tablet,disintegrating 4 mg PO Q8H PRN (Reason: nausea and vomiting) Qty: 30 0RF potassium chloride 10 mEq tablet extended release 10 meq PO DAILY Patient Comments: TAKE ONE TABLET BY MOUTH TWICE A DAY insulin glargine-yfgn [Semglee(insulin glarg-yfgn)Pen] 100 unit/mL (3 mL) insulin pen 10 unit SUBCUT DAILY Patient Comments: INJECT 10 UNITS UNDER THE SKIN EVERY MORNING HPI General Date/Time Provider Initiated Documentation: 03/24/24 15:01. 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 intake over the last couple of days; denies chest pain shortness of breath or fevers, denies abdominal pain Related Data Home Medications Medication Instructions Recorded Confirmed ondansetron 4 mg disintegrating 4 mg PO Q8H PRN nausea and 09/23/22 03/24/24 tablet vomiting #30 tabs citalopram 10 mg tablet (Celexa) 40 mg PO DAILY 11/10/23 03/24/24 dapagliflozin propanediol 10 mg 10 mg PO DAILY 11/10/23 03/24/24 tablet (Farxiga) furosemide 20 mg tablet 40 mg PO BID 11/10/23 03/24/24 montelukast 10 mg tablet 10 mg PO DAILY 11/10/23 03/24/24 magnesium oxide 400 mg PO DAILY 12/30/23 03/24/24 gabapentin 600 mg tablet 600 mg PO TID PRN 02/24/24 03/24/24 insulin glargine-yfgn 100 unit/mL 10 unit subcut DAILY 03/24/24 03/24/24 (3 mL) subcutaneous pen (Semglee (insulin glargine-yfgn) Pen) potassium chloride 10 mEq 10 meq PO DAILY 03/24/24 03/24/24 tablet,extended release Previous Rx's Medication Instructions Recorded ondansetron 4 mg disintegrating 4 mg PO Q8H PRN nausea and 09/23/22 tablet vomiting #30 tabs Allergies Allergy/AdvReac Type Severity Reaction Status Date / Time Penicillins Allergy Intermediate Anaphylaxsi Verified 03/24/24 15:06 s General Stated Complaint: Abd Prob ANA M: 2 Review of Systems Narrative: Review of Systems Constitutional: negative Eyes: negative ENT: negative Cardiovascular: Hypotension tachycardia Respiratory: negative Gastrointestinal: Vomiting : negative Musculoskeletal: negative Skin: negative Neurologic: negative Psych: negative Exam Narrative Exam Narrative: Physical Examination General: alert, awake, cooperative, appears fatigued, flushed, diaphoretic HEENT: normocephalic, atraumatic; PERRL, EOM intact, conjunctiva normal; no nasal discharge; slight drying of oral mucosa Neck: supple, trachea midline; full ROM Chest: normal to inspection Respiratory: normal respiratory effort, speaking in full sentences, clear to auscultation, no wheezing, rales or rhonchi Cardiac: Tachycardia, regular rhythm, S1S2 intact, no murmurs rubs or gallops GI: abdomen soft, non-tender, non-distended; no palpable mass or hepatosplenomegaly; well-healing midline laparotomy scar with small area of superficial dehiscence less than 1 cm at proximal end of incision site Skin: shallow based ulceration to plantar aspect of right foot, and great toe, well debrided, without purulence erythema induration or crepitus Neuro: AAOx3, normal speech, moving all extremities Extremities: see skin Psych: Appropriate mood and affect Course Vital Signs Vital signs: Vital Signs Temperature 35.7 C L 03/24/24 14:59 Pulse 115 H 03/24/24 14:59 Respiratory Rate 21 03/24/24 14:59 Blood Pressure 139/96 H 03/24/24 14:59 Pulse Oximetry 97 03/24/24 14:59 Temperature 35.7 C L 03/24/24 14:59 Pulse 115 H 03/24/24 14:59 Respiratory Rate 21 03/24/24 14:59 Respiratory Effort Normal 03/24/24 15:08 Blood Pressure 139/96 H 03/24/24 14:59 Pulse Oximetry 97 03/24/24 14:59 Pain Level 0 03/24/24 14:59 Lab/Test Results Lab/Test Results: 03/24/24 15:13 Blood Blood Culture - Pending 03/24/24 15:13 Blood Blood Culture - Pending Medical Decision Making 48-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 intake over the last couple of days; denies chest pain shortness of breath or fevers, denies abdominal pain; appears flushed and diaphoretic, noted to be tachycardic and hypothermic on arrival, IV access has been obtained will initiate crystalloid resuscitation given dry oral mucosa and episodes of hypotension, likely component of dehydration however must consider PE given postoperative status acute change in hemodynamics versus postoperative infection versus anemia versus less likely internal dehiscence of recent Whipple versus viral illness such as COVID flu versus ACS lower suspicion for aortic pathology pneumonia pneumothorax or UTI, muscles consider metastatic disease from primary malignancy versus diabetic complication such as DKA. Will obtain labs imaging including CT PE study as well as abdomen pelvis with IV contrast, will obtain blood cultures, fluid resuscitation will consider adding empiric antibiotics disposition pending labs and imaging results likely admission given clinical appearance on arrival 15: 43 evidence of metabolic acidosis, component of lactic acidosis, also leukocytosis with left shift and relative hypothermia, will start empiric antibiotics for presumptive intra-abdominal infection, patient has severe allergy to penicillin resulting in anaphylaxis therefore will cover with vancomycin for MRSA coverage as well as levofloxacin and metronidazole for intra-abdominal kaya. Awaiting labs for CT 16:29 patient endorses decreased appetite over the last several days has been taking less insulin at home due to less p.o. intake consider component of starvation ketosis as well as diabetic ketoacidosis in the setting of decreased insulin intake, replating potassium, will begin maintenance infusion of D5 half-normal saline with potassium and will initiate insulin at 0.5 units/kg/h given patient's blood sugars already below 200. 17: 37 fluid collection and localized air pocket at surgical site concerning for developing abscess, have reached out to [facility] surgical oncology team to discuss case for possible transfer. Patient finishing initial potassium infusion will begin insulin as well as D5 half NS 18: [address] Hernandez of surgical oncology who is excepted patient for transfer to their stepdown unit, will likely have IR drain placed. Patient family in agreement with transfer, will coordinate medic transport given patient will be starting his insulin drip as well as D5 half NS Quality:SDOH Health Related Social Needs: No Data to Display PFSH All Active Problems (Updated 03/24/24 @ 18:29 by Edu Barillas MD) Intra-abdominal abscess (Acute) Acidosis (Acute) Acute dehydration (Acute) Cellulitis (Acute) Ulcer of right foot with fat layer exposed (Acute) Hyperpigmented skin lesion (Acute) Nevus (Acute) Adenocarcinoma of duodenum (Acute) Peripheral neuropathy (Acute) Venous insufficiency (Acute) Plantar fascial fibromatosis of left foot (Acute) Ulcer of left foot, limited to breakdown of skin (Acute) Type 2 diabetes mellitus with diabetic nephropathy (Acute) Type 2 diabetes mellitus without complication (Acute) Tubulovillous adenoma (Acute ~12/04/22) Tubular adenoma (Acute ~12/04/22) Steatosis (Acute) Duodenal nodule (Acute) Abnormal abdominal CT scan (Acute) Abnormal bowel habits (Acute) Cataracts, bilateral (Acute) Diabetic foot ulcer (Acute) Nausea and vomiting (Acute) Screening for colon cancer (Acute) CKD (chronic kidney disease) (Chronic) JOSE (obstructive sleep apnea) (Chronic) Depression with anxiety (Acute) Diabetic neuropathy (Acute) Obesity (Chronic) Peripheral edema (Acute) Bowel habit changes (Acute) Vitamin B12 deficiency (Acute) Decreased hearing (Acute) Screening for STD (sexually transmitted disease) (Acute) Neuropathic ulcer (Acute) Wound of right foot (Acute) Wound of left foot (Acute) Cellulitis of foot, right (Acute) Foreign body (FB) in soft tissue (Acute) Phimosis (Acute) Depression (Chronic) HTN (hypertension) with goal to be determined (Chronic) Diabetes (Chronic) Medical History Anxiety Calculus of distal left ureter Fatty liver Erectile dysfunction Surgical History History of colonoscopy with polypectomy (~12/04/22) History of esophagogastroduodenoscopy (EGD) (~12/2023) H/O vasectomy History of cholecystectomy Family History Brother Diabetes Asthma Father Diabetes Angina pectoris Kidney failure Acute CVA (cerebrovascular accident) Sister Diabetes Mental and behavioral problem Mother , age 64 DM Diabetes Maternal Grandmother Cancer Social History Smoking/Tobacco Use Status: Never Smoking risk assessment performed?: Yes Alcohol Intake: current Alcohol Intake frequency: holidays/special occasions only Drug use: Never Substance use type: does not use Household members: children Housing: house Number of Children: 3 current occupation: [employer] What is your relationship status?: Panel score (0-1 are the most socially isolated patients): 0 Do you feel safe at home: Yes Do you feel safe in your relationship?: Yes
[2024-03-24 15:22] LABS: BE (Venous) -17 mmol/L (-2-3); HCO3 (Venous) 12 mmol/L (23-28); O2 Sat (Venous) 70 %; TCO2 (Venous) 11 mmol/L (24-29); pCO2 (Venous) 33 mmHg (41-51); pO2 (Venous) 42 mmHg
[2024-03-24 15:23] LABS: Abs Immature Grans 0.08 10^3/uL (0.0-0.06); Absolute Eosinophil Count 0.03 10^3/uL (0.0-0.7); Absolute Lymphocyte Count 1.04 10^3/uL (1.2-3.4); Absolute Neutrophil Count 11.62 10^3/uL (1.2-6.7); Basophils % 0.7 %; Eosinophils % 0.2 %; HCT 50.7 % (40.0-50.0); HGB 16.2 g/dL (13.5-17.5); Immature Grans % 0.6 %; Lymphocytes % 7.6 %; MCH 24.2 pg (27.0-33.0); MCV 76 fL (80-95); MPV 9.8 fL (8.0-11.0); Monocytes % 6.3 %; Neutrophils % 84.6 %; Platelet Count 420 10^3/uL (130-400); RBC 6.69 10^6/uL (4.36-5.78); RDW 17.4 % (11.8-14.1); RDW-SD 43.3 fL; WBC 13.73 10^3/uL (4.4-10.8)
[2024-03-24 15:24] LABS: Absolute Monocyte Count 0.86 10^3/uL (0.1-0.8)
[2024-03-24 15:25] LABS: pH (Venous) 7.16 (7.31-7.41)
[2024-03-24 16:00] LABS: ALT 23 U/L (16-63); AST 13 U/L (15-37); Alkaline Phosphatase 94 U/L (46-116); Anion Gap 23.7 mmol/L (3-11); BUN 14 mg/dL (7-18); Bilirubin, Total 0.52 mg/dL (0.2-1.0); CO2 14.3 mmol/L (21.0-32.0); CREATININE 1.5 mg/dL (0.70-1.30); Calcium 8.9 mg/dL (8.5-10.1); Chloride 99 mmol/L (98-107); Estimated GFR 56.72 (mL/min/1.73m2); Glucose 198 mg/dL (74-106); Lipase 56 U/L (16-77); NT-proBNP 20 pg/mL (<300); Potassium 3.4 mmol/L (3.5-5.1); Sodium 137 mmol/L (136-145); Total Protein 7.8 g/dL (6.4-8.2); Troponin I < 50 ng/L (< or =60)
[2024-03-24] MEDS: Normal Saline 1,000 ML 1000 ML IV (16:06)
[2024-03-24] MEDS: Omnipaque 350 MG/ML 100 ML BTL IJ (16:25)
[2024-03-24] MEDS: Normal Saline - Diluent 50 ML VIAL IJ (16:26)
[2024-03-24] MEDS: levoFLOXacin 750 MG/150 ML BAG 100 MG IVPB (16:40)
[2024-03-24] MEDS: metroNIDAZOLE 500 MG/100 ML BAG 100 MG IVPB (16:40)
[2024-03-24 16:43] LABS: INR 1.2 (0.9-1.1); PTT Activated 30.7 sec (23.6-32.8); Prothrombin Time 11.6 sec (9.1-11.1)
[2024-03-24] MEDS: POTASSIUM CHLORIDE 20 MEQ/100 ML BAG 50 MEQ IVINF (16:54)
[2024-03-24 17:27] LABS: COVID-19 PCR Negative (Negative); Influenza A PCR Negative (Negative); Influenza B PCR Negative (Negative); RSV PCR Negative (Negative)
[2024-03-24 17:28] LABS: Source NASOPHARYNX
--- NOTE | 2024-03-24 17:53 | NUR.NOTE ---
Nursing Note: 20g IV right AC placed by provider utilizing ultrasound appears infiltrated; line removed and new 20g IV placed by provider utilizing ultra sound in the same arm. Potassium restarted using new line. Pt denies pain or discomfort in right arm at this time.
[2024-03-24] MEDS: VANCOMYCIN/WATER (PEG) 2 GM/400 ML BAG IVPB (18:04)
[2024-03-24 18:21] LABS: Bilirubin Small (Negative); Blood Negative (Negative); Clarity Clear (Clear); Glucose 500 mg/dL (Negative); Ketones >=160 mg/dL (Negative); Leukocyte Esterase Negative (Negative); Nitrite Negative (Negative); Specific Gravity >= 1.030 (1.005-1.025); Urobilinogen 0.2 mg/dL (Up to 0.2); pH 5.5 (5-8)
[2024-03-24 18:31] LABS: Bacteria Negative HPF (Negative); C & S Indicated? No; Casts 3-5 Hyaline LPF (Negative); Crystals Negative HPF (Negative); Epithelial Cells Rare HPF (Negative); Mucus Negative (Negative); RBC Negative HPF (0-2); WBC Negative HPF (0-5)
[2024-03-24 18:49] LABS: Troponin I < 50 ng/L (< or =60)
[2024-03-24 19:43] LABS: BE (Venous) -16 mmol/L (-2-3); HCO3 (Venous) 12 mmol/L (23-28); O2 Sat (Venous) 83 %; TCO2 (Venous) 11 mmol/L (24-29); pCO2 (Venous) 29 mmHg (41-51); pH (Venous) 7.22 (7.31-7.41); pO2 (Venous) 51 mmHg
[2024-03-24 19:55] LABS: Anion Gap 19.1 mmol/L (3-11); BUN 11 mg/dL (7-18); CO2 13.9 mmol/L (21.0-32.0); CREATININE 1.3 mg/dL (0.70-1.30); Chloride 105 mmol/L (98-107); Estimated GFR 67.34 (mL/min/1.73m2); Glucose 166 mg/dL (74-106); Potassium 3.9 mmol/L (3.5-5.1); Sodium 138 mmol/L (136-145)
--- NOTE | 2024-03-24 20:17 | NUR.NOTE ---
report ccalled to GRETCHEN Ricci at [facility] on [facility]. Questions asked and answered
== END 2024-03-24 20:01 | disposition short-term general hospital (02) ==
PROVIDERS: Emergency Provider Emergency Medicine; PCP Nurse Practitioner Family
DX: E86.0 Dehydration (principal); E11.10 Type 2 diabetes mellitus with ketoacidosis without coma; K65.1 Peritoneal abscess; R94.31 Abnormal electrocardiogram [ECG] [EKG]; E11.621 Type 2 diabetes mellitus with foot ulcer; Z79.4 Long term (current) use of insulin; Z79.899 Other long term (current) drug therapy
CPT/HCPCS: 71275; 74177; 80048; 80053; 82805; 83690; 87040; 87637; 93005; 96361; 96365; 96366; 96368; 96375; 99285; 81003; 81015; 83605; 83880; 84443; 84484; 85025; 85610; 85730; 93010; J1836; J1956; J3372; J3480; J3490

== ENCOUNTER 2024-03-24 16:20 | Outpatient (REF) | payer OTHER, SELFPAY ==
[2024-03-24 18:02] LABS: ALT 24 U/L (16-63); AST 13 U/L (15-37); Albumin 3.2 g/dL (3.4-5.0); Alkaline Phosphatase 102 U/L (46-116); Anion Gap 24.9 mmol/L (3-11); BUN 12 mg/dL (7-18); Bilirubin, Total 0.49 mg/dL (0.2-1.0); CO2 15.1 mmol/L (21.0-32.0); CREATININE 1.5 mg/dL (0.70-1.30); Calcium 9.2 mg/dL (8.5-10.1); Chloride 99 mmol/L (98-107); Estimated GFR 56.72 (mL/min/1.73m2); Glucose 183 mg/dL (74-106); Magnesium 2.1 mg/dL (1.8-2.4); Potassium 3.7 mmol/L (3.5-5.1); Sodium 139 mmol/L (136-145); Total Protein 7.5 g/dL (6.4-8.2)
== END 2024-03-24 16:21 | disposition home or self-care (01) ==
LOC: NCHCN 16:20
PROVIDERS: PCP Nurse Practitioner Family; Visit Provider Nurse Practitioner Family
DX: I10 Essential (primary) hypertension (principal); R60.9 Edema, unspecified; N18.30 Chronic kidney disease, stage 3 unspecified
CPT/HCPCS: 80053; 83735

== ENCOUNTER 2024-05-07 07:38 | Outpatient (RCR) | payer OTHER, SELFPAY ==
[2024-05-07] MEDS: Normal Saline Flush 10 ML SYR IVP (09:49)
[2024-05-07 09:53] LABS: Abs Immature Grans 0.02 10^3/uL (0.0-0.06); Absolute Basophil Count 0.05 10^3/uL (0.0-0.2); Absolute Eosinophil Count 0.29 10^3/uL (0.0-0.7); Absolute Lymphocyte Count 1.39 10^3/uL (1.2-3.4); Absolute Neutrophil Count 5.34 10^3/uL (1.2-6.7); Basophils % 0.7 %; Eosinophils % 3.9 %; HCT 41.3 % (40.0-50.0); HGB 12.8 g/dL (13.5-17.5); Immature Grans % 0.3 %; Lymphocytes % 18.8 %; MCV 77 fL (80-95); MPV 10.7 fL (8.0-11.0); Monocytes % 4.1 %; Neutrophils % 72.2 %; Platelet Count 192 10^3/uL (130-400); RBC 5.34 10^6/uL (4.36-5.78); RDW 16.8 % (11.8-14.1); WBC 7.39 10^3/uL (4.4-10.8)
[2024-05-07 10:08] LABS: ALT 19 U/L (16-63); AST 18 U/L (15-37); Albumin 2.8 g/dL (3.4-5.0); Alkaline Phosphatase 77 U/L (46-116); Anion Gap 6.4 mmol/L (3-11); BUN 6 mg/dL (7-18); Bilirubin, Total 0.31 mg/dL (0.2-1.0); CO2 29.6 mmol/L (21.0-32.0); CREATININE 0.9 mg/dL (0.70-1.30); Calcium 8.8 mg/dL (8.5-10.1); Chloride 101 mmol/L (98-107); Glucose 258 mg/dL (74-106); Potassium 4.1 mmol/L (3.5-5.1); Sodium 137 mmol/L (136-145); Total Protein 6.6 g/dL (6.4-8.2)
== END 2024-05-15 23:59 | disposition home or self-care (01) ==
LOC: INF 07:38
PROVIDERS: PCP Nurse Practitioner Family; Visit Provider Internal Medicine Hematology & Oncology
DX: C17.0 Malignant neoplasm of duodenum (principal)
CPT/HCPCS: 36591; 80053; 85025

== ENCOUNTER 2024-05-27 17:48 | Outpatient (REF) | payer OTHER, SELFPAY ==
--- OUTSIDE RECORDS SUMMARY | 2024-05-27 17:55 | XMS_ITS | Encounter Summary ---
Author Organization [facility] Address [address] [place] [address] Care Team Providers Care Inspector Subassemblies Name Role Phone Ramiro Cardenas MD Primary Care Provider [phone] Encounter Details Date Type Department Care Team (Late st Contact Info) Description 12/05/2022 Lab Requisition [facility] Pathology & Laboratory Medicine - [facility] [address] [place] [address] Mac Delacruz MD [address] [place] [address], [address] [place], [place] [phone] Calculus of ureter; Other diseases of stomach [...] explore management options, if applicable. 12/09/2022 8:38 [facility] Final Diagnosis A. DUODENUM, POLYP, BIOPSY: - Tubulovillous adenoma. - Negative for malignancy. B. COLON, 75 CMS, POLYP, BIOPSY: - Tubular adenoma. 12/09/2022 8:38 [facility] Attestation By the signature below, the attending physician certifies that they have 1) personally conducted a gross and/or microscopic examination of the described specimen(s), and/or personally interpreted the results of laboratory testing of the described specimen(s), and 2) personally rendered or confirmed the above diagnosis. 12/09/2022 8:38 [facility] at 0838 Clinical History Duodenal nodule, colon cancer screen 12/09/2022 8:38 [facility] Gross Description A. [...] B1. Katelynn Janie 12/06/2022 7:54 12/09/2022 8:38 [facility] Performing Lab [facility] 12/09/2022 8:38 [facility] Scanned Images 12/09/2022 8:38 [facility] Tissue ENTIRE COLON / Unknown 12/05/2022 10:22 EDT 12/05/2022 17:58 EDT Tissue specimen (specimen) COLON STRUCTURE / Unknown 12/05/2022 10:22 EDT 12/05/2022 17:58 EDT Mac Delacruz MD PATHOLOGY ORDERABLES [facility] [address] [place] [address] documented in this encounter Visit Diagnoses Diagnosis Calculus of ureter Other diseases of stomach and duodenum documented in this encounter Care Teams Inspector Subassemblies Relationship Specialty Start Date End Date Ramiro Cardenas MD [address] [place], [place] [phone] PCP - General 04/24/09 documented as of this encounter
--- OUTSIDE RECORDS SUMMARY | 2024-05-27 17:55 | XMS_ITS | Referral Summary ---
Author Organization [facility] Address [address] [place] [address] Care Team Providers Care Machine Cleaner Name Role Phone Ramiro Cardenas MD Primary Care Provider [phone] Encounters Date Type Department Care Team Description 02/26/2024 Lab Requisition [facility] Pathology & Laboratory Medicine - [facility] [address] [place] [address] Outr Resulting Lab, Provider from Last 3 [...] Overview: Added automatically from request for surgery [id number] Combined forms of age-related cataract of right eye 02/27/2022 Overview: Added automatically from request for surgery [id number] Social History Tobacco Use Types Packs/Day Years [...] on file Medical Devices Implanted Type Area Flight Line Service Attendant Device Identifier Shelf Expiration Date Model / Serial / Lot Lens Intraocular Toric Astigmatism Correction Foldable +20.0d Acrysof Iq [id number] - [id number] Implanted:Qty: 1 on 05/03/2022 by Ezequiel Andrea MD at [facility] Lens Right: Eye [employer] 05/06/2026 [id number]. [id number] / [id number] / Lens Intraocular Toric Astigmatism Correction Foldable +18.5d Acrysof Iq [id number] - [id number] Implanted:Qty: 1 on 05/10/2022 by Ezequiel Andrea MD at [facility] Lens Left: Lens [employer] [id number] / [id number] / Procedures Procedure Name Priority Date/Time Associated Diagnosis Comments CEA Routine 02/26/2024 9:00 EDT from Last 3 Months Results * CEA (02/26/2024 9:00 EDT) CEA 1.7 See Note ng/mL 02/26/2024 22:48 EDT [facility] Comment: % Distribution of CEA (ng/mL): ??0.0 - 2.5 in 98.2% of Nonsmokers and 87.3% of Smokers ??2.6 - 5 in 1.8% of Nonsmokers and 8% of Smokers ??5.1 - 10.1 in 4.7% of Smokers NOTE: Serum CEA concentration should not be interpeted as absolute evidence for the presence or absence of malignant disease. ?? Assayed on Siemens ADVIA Locketaur XPT using chemiluminescent technology. ??Values obtained by different assay methods cannot be used interchangeably. Blood VENOUS BLOOD / Unknown 02/26/2024 9:00 EDT 02/26/2024 21:46 EDT Provider Outr Resulting Lab CHEMISTRY & BLOOD GAS ORDERABLES [facility] [address] [place] [address] from Last 3 Months Advance Directives For more information, please contact: [phone] * Full Code (Latest Code Status on [...] Made the Decision? Default/Not Discussed Care Teams Machine Cleaner Relationship Specialty Start Date End Date Ramiro Cardenas MD [address] [place] [address] PCP - General 04/24/09
--- OUTSIDE RECORDS SUMMARY | 2024-05-27 17:55 | XMS_ITS | Encounter Summary ---
Author Organization [facility] Address [address] [place] [address] Care Team Providers Care Engraver Jewelry Name Role Phone Ramiro Cardenas MD Primary Care Provider [phone] Encounter Details Date Type Department Care Team (Late st Contact Info) Description 02/26/2024 Lab Requisition [facility] Pathology & Laboratory Medicine - [facility] [address] [place] [address] Outr Resulting Lab, Provider Social History Tobacco [...] 1.7 See Note ng/mL 02/26/2024 22:48 EDT [facility] Comment: % Distribution of [...] Resulting Lab CHEMISTRY & BLOOD GAS ORDERABLES [facility] [address] [place] [address] documented in this encounter Visit Diagnoses Not on filedocumented in this encounter Care Teams Engraver Jewelry Relationship Specialty Start Date End Date Ramiro Cardenas MD [address] [place] [address] PCP - General 04/24/09 documented as of this encounter
--- OUTSIDE RECORDS SUMMARY | 2024-05-27 17:55 | XMS_ITS | Continuity of Care Document ---
Author Organization [place] - [facility], [facility] Address [address] [place] [address] Assessment Encounter Date Assessment Date Assessment LastModified by Organization Details LastModified Time 04/23/2024 04/23/2024 The total time devoted to today's encounter, including both the [id number] time with the patient and/or family/caregi charity and [id number] elida time I personally spent is 40 [...] Organization Details Last Modified Time Details Appointments Follow Up 2023 02:00P M Not available Not available Not available Medical Nutrition Therapy 60 2023 02:00P M Not available Not available Not available Office Visit 30 2023 03:00P M Not available Not available Not available Lab hemoglobi n A1C, fingersti ck 2023 08 024 [email or web address] [facility], [address] [place], [address], 04/23/2024 13:02:39 Referral None recorded. Procedures None recorded. Surgeries None recorded. Imaging None recorded. Medication Orders None recorded. Patient TargetsNo targets recorded. Patient Instructions Encounter Date Encounter Id Patient Instructions Last Modified By Organization Details Last Modified Time 04/23/2024 [id number] Increase semglee to 13 units daily for 7 days, then if sugar still greater than 120, increase to 16 units. Not available 04/23/2024 12:39:31 Reason for Referral [facility] Psych[facility]rist Referral for Nodu le of subcutaneous tissue of left foot provider is wondering why this pt has not been contacted yet - resending Referring Physician: Olga Marcus [facility], Encounter Date: 09/23/2023 Sleep Medicine Referral for Obstructive sleep apnea syndrome Referring Physician: Olga Marcus [facility], Encounter Date: 11/07/2023 Urologist Referral for Erect ile dysfunction Referring Physician: Olga Marcus [facility], Encounter Date: 11/07/2023 EGD Referral for Digestive s ystem finding Referring Physician: Olga Marcus [facility], Encounter Date: 11/07/2023 Plastic Surgeon Referral for Gynecomastia Referring Physician: Olga Marcus [facility], Encounter Date: 12/05/2023 Endocrinology Referral for T ype 2 diabetes mellitus without complication Referring Physician: Olga Marcus [facility], Encounter Date: 02/23/2024 Vascular Surgeon Referral fo r Cramp in lower limb Referring Physician: Olga Marcus [facility], Encounter Date: 02/23/2024 Lpta Referral f or Type 2 diabetes mellitus without complication referral for Freestyle Lina 3 Referring Physician: Olga Marcus [facility], Encounter Date: 04/02/2024 Physical Therapist Referral for Pain of left shoulder joint Referring Physician: Olga Marcus [facility], Encounter Date: 04/20/2024 Results Created Date Observation Date Name Description Value Unit Range Abnormal Flag Note LastModifiedBy Organization Detail LastModifiedTime 04/23/20 24 04/23/2024 hemog lobin A1C, finge rstic k hemoglobin A1C 8.0 % <5.[address] [facility] [address], [place], [address], 04/23/2024 11:48:33 03/24/20 24 03/24/2024 CT imagi ng repor t Patisara t Name: Charles Nick Unit #: [id number] Loc: ER Orderi ng Provid er: Rayo Ramos M.D. Accoun t #: [id number] Status : REG ER Primar y [...] or aneury sm. 2. No acute pulmon ojnny proces s. 3. Status post Whippl e's [...] facili ty are submit dotty to the [facility] al Radiol ogy Data Regist ry (NRDR) [...] at the addres s above. Thank- you. [facility] [address], [place], [address] 03/25/2024 04:38:41 03/26/20 24 03/25/2024 elect gerardo olvera am EKG JALYN Holland NAME: Charles Nick UNIT #: [id number] ORDERI NG PROVID ER: Kenny Garcia DO ACCOUN T #: [id number] PRIMAR Y CARE PROVID ER: Alexa CHAMBERLAIN APRN DATE/T JOHN OF SERVIC E: 1507 : 1975 PERFOR HARPER LOCATI ON: ER ------ ------ --- APPROV ED REPORT ------ ------ -- Exam: Restin g ECG Reason for Exam: Hypote nsion Jalyn holland Locati on: E HR:112 bpm ECG Measur ements Heart Rate 112 AXIS NM 152 P 54 QRSd 103 QRS 70 [...] ECG Measur ements Heart Rate 112 AXIS NM 152 P 54 QRSd 103 QRS 70 [...] signed by: [id number] Cosign ed by: haley [facility] [address] [place], [address] 03/26/2024 08:57:17 Result Notes None recorded. Problems Name Problem SNOMED Code Status Onset Date Resolution Date Notes Provider Name and Address Organization Details Recorded Time Jasmyne sanchez hyperten dewayne 06186496 Active 2006 Alie [facility]or[facility] [place] [facility] 4 13:29:59 Nephroti c syndrome 94146162 Completed 200603/03/2007 [facility] 3 04:42:43 Chronic kidney disease stage 3 578330271 Active 2010 [facility] 4 13:29:40 Obstruct kong sleep apnea syndrome 12053503 Active 2013 Alie dorsey [place] [facility] 4 13:30:42 Anxiety 07104675 Active 2014 Alie Mervat [facility] 4 13:29:15 Type 2 diabetes mellitus without complica tion 333628799 [facility] 4 13:30:59 Obesity 009150195 Active 2015 Alie Mervat [facility] 4 13:30:35 Edema 768830488 Active 2015 [facility] 4 13:29:50 Allergy to food 720712831 [facility] 4 13:29:10 Adult health examinat ion Active 2018 [facility] 4 13:29:06 Erectile dysfunct ion 362333664 Active 2018 [facility] 4 13:29:54 Neuropat hy due to type 2 diabetes mellitus 16367544080 9106 [facility] 4 13:30:25 Screenin g for malignan t neoplasm of colon Active 2020 [facility] 4 13:30:50 Digestiv e system finding 988628994 Active 2021 [facility] 4 13:29:44 Vitamin B deficien cy 07267176 [facility] 2021 [facility] 4 13:31:03 Pre-surg mirta evaluati on Completed 202106/01/2022 Problem Code: Z01.818; Problem Code Type: ICD-10; Not Available [facility] 3 04:42:45 Bilatera l hearing loss 42067802 [facility] 4 13:29:19 Venereal disease screenin g Completed 202108/24/2022 Problem Code: Z11.3; Problem Code Type: ICD-10; Not Available [facility] 3 04:42:45 Hypomagn esemia 438654312 Active 2022 [facility], [facility] 4 13:30:11 Secondar y polycyth emia 16539923 Active 2022 [facility] 4 13:30:54 Kidney stone 83523213 Active 2022 [facility] 4 13:30:16 History of polyp of colon 770266247 Active 2022 [facility] 4 13:30:07 Disorder of nasal sinus 3722515 Active 2022 OLGA MARCUS, BLOOD TESTER [address], [place], [address] , [facility] 4 08:08:16 Nonalcoh olic steatohe patitis 157768861 Active 2022 [facility], [facility] 4 13:30:32 Body mass index 30+ - obesity 771123732 Active 2022 [facility], [facility] 4 13:29:23 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 mellitus 105907642 Active 2022 [facility] 4 13:30:46 Nephroti c syndrome , diffuse membrano us glomerul onephrit is 400722907 Active [address] [facility] 4 13:30:20 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 852468665[address] [facility] 4 13:30:03 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 03520940699 00 Completed 202004/10/2021 Problem Code: E11.621; Problem Code Type: ICD-10; Alie dorsey [facility] 4 13:30:03 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 51699049802 00 Completed 202007/25/2022 Problem Code: E11.621; Problem Code Type: ICD-10; [facility] 4 13:30:03 Hypergly cemia due to type 2 diabetes mellitus 39407983233 9109 Completed 201608/15/2017 Problem Code: E11.65; Problem Code Type: ICD-10; Not Available [facility] 3 04:42:47 Phimosis 010182204 Completed 201704/29/2022 Problem Code: N47.1; Problem Code Type: ICD-10; Not Available [facility] 3 04:42:47 Snoring 91984280 Completed 201303/01/2016 Not Available [facility] 3 04:42:48 Imaging of abdomen abnormal 039703012 Completed 202212/20/2022 Problem Code: R93.5; Problem Code Type: ICD-10; Not Available [facility] 3 04:42:48 Adult health examinat ion Completed 201403/01/2016 Problem Code: Z00.00; Problem Code Type: ICD-10; [facility] 4 13:29:06 Obesity 012527798 Completed 200606/11/2023 [facility] 4 13:30:35 Fatigue 10908921 Completed 201303/01/2016 Not Available [facility] 3 04:42:48 Acute upper respirat ory infectio n 69282576 Completed 202004/29/2022 Problem Code: J06.9; Problem Code Type: ICD-10; Not Available [facility] 3 04:42:49 Nausea 108670015 Completed 202212/20/2022 Problem Code: R11.0; Problem Code Type: ICD-10; Not Available [facility] 3 04:42:49 Type 2 diabetes mellitus without complica tion 111511148 Completed 202201/10/2023 Problem Code: E11.9; Problem Code Type: ICD-10; [facility] 13:30:59 Dyssomni a 35275763 Completed 201303/01/2016 Problem Code: 780.59; Problem Code Type: ICD-9; Not Available [facility] 3 04:42:49 Acute bronchit is 36230877 Completed 201708/09/2019 Problem Code: J20.9; Problem Code Type: ICD-10; Not Available [facility] 3 04:42:49 Nausea and vomiting 81280445 Completed 202107/25/2022 Problem Code: R11.2; Problem Code Type: ICD-10; Not Available [facility] 3 04:42:50 Sleep apnea 22063106 Completed 201306/11/2023 Problem Code: 780.57; Problem Code Type: ICD-9; Not Available [facility] 3 04:42:50 Disturba nce of consciou sness 7864301 Completed 201303/01/2016 Problem Code: 780.09; Problem Code Type: ICD-9; Not Available [facility] 3 04:42:50 Acute sinusiti s 72942782 Completed 202004/10/2021 Problem Code: J01.90; Problem Code Type: ICD-10; Not Available [facility] 3 04:42:50 Jesus Alberto brown 48338206 Completed 201608/15/2017 Problem Code: N48.1; Problem Code Type: ICD-10; Not Available [facility] 3 04:42:51 Sleep disorder 53549895 Completed 201303/01/2016 Problem Code: 780.50; Problem Code Type: ICD-9; Not Available [facility] 3 04:42:51 Nodule of subcutan eous tissue of left foot 32974225698 572741 Active 2023 OLGA MARCUS APRN [address], [place], [address] , [facility] 4 08:13:06 Benign prostati c hyperpla mercy 855679568 Active 2023 Alie dorsey, [facility]. 4 13:31:06 Headache 24318074 Active 2023 OLGA MARCUS APRN [address], [place], [address] , [facility]. 4 08:57:45 Gynecoma stia 3842894 Active 2023 Alie dorsey, [facility]. 4 13:31:13 Ulcer of left foot 802313684 Active 2023 ARNALDO GOMEZ CMA null, [facility]. 4 09:47:50 Fibromat osis of plantar fascia of left foot 49772945667 171150 Active 2023 Alie dorsey, [facility]. 4 13:31:10 Carcinom a of duodenum 754468637 Active 2023 EGD 01/06, biopsy at that time OLGA MARCUS APRN [address], [place], [address] , [facility]. 4 09:30:26 Pain of left shoulder joint 15578573893 235923 Active 2023 OLGA MARCUS APRN [address], [facility] [address] , [facility] 4 09:14:45 Cramp in lower limb 664756278 Active [address], [place] [address] , [facility] 4 09:15:29 Pain in right hip joint 49989037340 9102 Active [address], [address] 4 09:19:09 Prolonge d QT interval 162477909 Active [address], [facility] [address] [place] [address] 4 09:53:55 Hypergly cemia due to type 1 diabetes mellitus 79567804534 9101 Active 2023 OLGA MARCUS APRN [address], [facility] [address] [place] [address] 4 14:16:49 Notes:*Problem Name: Duodena l polyp *Problem Status: active *Comments: *Problem Code: K31.7 *Problem Code Type: ICD-10 *Note Date: 2022 Problem Notes None recorded. Procedures Surgical History Date Name Laterality Status Provider Name and Address Organization Details Recorded Time 4 IV insert completed Kinsey Oliveira RN null, [facility] 03/24/2024 15:58:08 4 endoscopy completed ARNALDO GOMEZ CMA null, [facility] 01/02/2024 15:34:11 Imaging Results None recorded. Procedure Notes None recorded. Medical Equipment None Reported. Allergies Allergen ID Allergen Name Allergen Category Reaction Reaction Severity Criticality Documentation Date Start Date Code Code System Note Provider Name and Address Organization Details Recorded Time 84212 Medicinal product containin g penicilli n and acting as antibacte rial agent (product) medicatio n other mild Not available 11/29/20232006 49514 05 SNOMED Swell ing of cole Mcdowell[facility] 4 13:58:03 Medications Name Sig Start Date Stop Date Status Note LastModified by Organization Details LastModified Time Prescript ion - Prior Authoriza tion Request active Not Available Not Available Not Available furosemid e 40 mg tablet TAKE ONE-HALF TABLET BY MOUTH TWICE A DAY active Not Available Not Available No t Available acetamino phen 325 mg tablet Take 2 tablets every 8 hours by oral route as needed. 2023 active Per [facility] d/c summary 04/01/24 Not Available Not Available Not Available gabapenti n 600 mg tablet TAKE ONE TABLET BY MOUTH THREE TIMES A DAY NEEDED FOR PAIN active Not Available Not Available No t Available doxycycli ne hyclate 100 mg capsule TAKE [...] TABLETS BY MOUTH DAILY FOR 14 DAYS 05/27 completed Not Available Not Available Not Available naltrexon e 50 mg tablet TAKE ONE TABLET BY MOUTH EVERY DAY 05/27 completed Not Available Not Available Not Available lisinopri l 20 mg tablet Take [...] Available clindamyc in HCl 150 mg capsule 05/27 completed Stopped per [facility] d/c summary 04/01/24 Not Available Not Available [...] ONE TABLET BY MOUTH TWICE A DAY 05/27 completed Not Available Not Available Not Available metronida zole 500 mg tablet TAKE ONE TABLET BY MOUTH TWICE A DAY FOR 14 DAYS 05/27 completed Not Available Not Available Not Available terazosin 1 mg capsule Take 1 [...] ONE TABLET BY MOUTH EVERY DAY NEEDED 05/27 completed Stopped per [facility] d/c summary 04/01/24 Not Available Not Available Not Available tamsulosi n 0.4 mg capsule TAKE ONE CAPSULE BY MOUTH AT BEDTIME 03/15 completed Not Available Not Available Not Available Humalog U-100 Insulin 100 unit/mL subcutane ous solution INJECT 0-11 UNITS SUBCUTAN EOUSLY THREE TIMES A DAY WITH MEALS DIRECTED 05/27 completed Not Available Not Available Not Available [...] Available furosemid e 20 mg tablet Take 40 mg twice a day by oral route. active Per [facility] d/c summary continue 04/01/24 Not Available Not [...] TAKE ONE TABLET BY MOUTH EVERY DAY 05/27 completed Not Available Not Available Not Available Vitamin D2 1,250 mcg (50,000 unit) capsule 1 capsule weekly 2023 active Not Available Not Available Not Avai lable lisinopri l 40 mg tablet Take 1 [...] Available Not Available tadalafil 20 mg tablet Take 1 tablet every day by oral route as needed. 2023 active Not Available Not Available Not Renea malik BD Ultra-Fin e Mini Pen Needle 31 [...] E11.9 Not Available Not Available Not Available Lantus Solostar U-100 Insulin 30 units in am active per partner Jenelle Not Available Not Available Not Available Humalog KwikPen (U-100) Insulin 100 unit/mL subcutane ous USE DIRECTED BEFORE MEALS THREE TIMES A DAY UP TO 60 UNITS PER DAY active Not Available Not Available No t Available OneTouch Delica Lancets 30 gauge Test once daily 2015 active E11.9 Not Available Not Available Not Renea Uriostegui (honey) 80 % topical gel Apply a small amount to affected area once a day 05/27 completed Not Available Not Available Not Available Creon 36,000 unit-114, 000 unit-180, 000 unit capsule,d elayed release TAKE 2 CAPSULES BY MOUTH DAILY WITH MEALS , AND 1 CAPSULE WITH SNACKS active Not Available Not Available No t Available Farxiga 10 mg tablet TAKE ONE TABLET BY MOUTH EVERY DAY 04/23 completed Stopped per [facility] d/c summary 04/01/24 Not Available Not Available [...] Gen Pen Needle 32 gauge x USE 1 PEN NEEDLE TO INJECT SUBCUTAN EOUSLY EVERY NIGHT active Not Available Not Available No t Available OneTouch Ultra2 Meter test once daily 2015 active E11.9 Not Available Not Available Not Avai lable Baqsimi 3 mg/actuat ion nasal spray INSTILL 1 SPRAY NASALLY DIRECTED NEEDED FOR SEVERE HYPOGLYC EMIA NOT RESPONDI NG TO ORAL TREATMEN T FOR LOW BLOOD SUGAR active Not Available Not Available No t Available Trulicity 3 mg/0.5 mL subcutane ous pen [...] 100 unit/mL (3 mL) subcutane ous INJECT 30 UNITS UNDER THE SKIN ONCE DAILY active Not Available Not Available No t Available Semglee (insulin glargine- yfgn) 100 unit/mL subcutane ous solution INJECT 10 UNITS SUBCUTAN EOUSLY DAILY 05/20 completed Not Available Not Available Not Available FreeStyle Lina 3 Sensor device USE DIRECTED active Not Available Not Available No t Available FreeStyle Lina 3 [place] USE DIRECTED active Not Available Not Available No t Available Vitals Date Recorded Body height Body mass index (BMI) Body weight Oxygen saturation Oxygen saturation in Arterial blood by Pulse oximetry Heart rate Body temperature Systolic blood pressure Diastolic blood pressure Provider Name and Address Organization Details Last Updated DateTime 4 186.69 cm 34.2 kg/m2 155177. 79 g 97 % 97 % 81 /min 97.89 [degF] 128 mm[Hg] 94 mm[Hg] ARNALDO GOMEZ CMA [place] [facility]. 4 11:42:08 Date Recorded Systolic blood pressure Diastolic blood pressure Provider Name and Address Organization Details Last Updated DateTime 04/23/2024 122 mm[Hg] 90 mm[Hg] OLGA MARCUS, BLOOD TESTER [address], [place], [address], [facility] 04/23/2024 12:17:35 Social History Question Answer Notes LastModified by Organizat ion Details LastModified Time Tobacco Smoking Status Never Smoker ARNALDO GOMEZ, DEPUTY [employer]ER[employer] null, [facility] 12/05/2023 08:46:50 What Was The [...] Name and Address Organization Details Recorded Time Influenza, split virus, trivalent, PF 05/27/2024 completed OLGA MARCUS, YOCASTA [address], [place], [address], [facility] 05/27/2024 14:49:23 Td (adult), 2 Lf tetanus toxoid, preservative free, adsorbed 04/22/2017 completed Not Available [facility] 07/25/2023 06:32:54 Tdap 02/27/2007 completed Not Available [facility] 06:32:54 Influenza, split virus, quadrivalent, PF 09/21/2020 completed Not Available [facility] 07/25/2023 06:32:54 Influenza, split virus, quadrivalent, PF 06/19/2021 completed Not Available [facility] 07/25/2023 06:32:54 Influenza, split virus, quadrivalent, PF 08/02/2019 completed Not Available [facility] 07/25/2023 06:32:54 COVID-19 vaccine, vector-nr, rS-Ad26, PF, 0.5 mL 01/19/2021 completed Not Available [facility] 07/25/2023 06:32:54 pneumococcal polysaccharide PPV23 09/21/2020 completed Not Available [facility] 2022 06:32:54 influenza, unspecified formulation 07/05/2016 completed Not Available [facility] 07/25/2023 06:32:54 influenza, unspecified formulation 07/16/2017 completed Not Available [facility] 07/25/2023 06:32:54 Influenza, split virus, quadrivalent, PF 06/17/2023 completed Not Available [facility] 09/26/2023 05:33:26 Past Encounters Encounter ID Performer Location Encounter Start Date Encounter Closed Date Diagnosis/Indication Diagnosis SNOMED-CT Code Diagnosis ICD10 Code [id number] ADA HAMM MD [address] [address] 03/24/2024 13:12:40 03/24/2024 14:17:10 Tachycardia 3688562 R00.0 Lethargy 289685208 R53.8 3 Low blood pressure 18682 003 I95.9 [id number] OLGA MARCUS APRN [address] [address] 04/23/2024 11:09:47 04/23/2024 12:19:30 Type 2 diabetes mellitus without complication 427840576 E11.9 E11.40 Essential hypertension 36355461 I10 N18.9 R60.9 Anxiety 97944274 F41.9 F32.A Z73.3 Obstructiv e sleep apnea syndrome 72372058 G47.33 Body mass index 30+ - obesity 278982507 Z68.36 Digestive system finding 048079083 R19.8 Nonalcohol ic steatohepatitis 896600793 K75.81 Secondary polycythemia 20490421 D75.1 Disorder o f nasal sinus 4722381 J34.9 Nephrotic syndrome, diffuse membranous glomerulonephritis 035401282 N04.20 Nodule of subcutaneous tissue of left foot 8726134237 6810380 R22.42 Benign pro static hyperplasia 679605593 N40.0 Carcinoma of duodenum 25 7090766 C17.0 Pain of le ft shoulder joint 1761720667 1322161 M25.512 Cramp in lower limb 4499 16243 R25.2 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 2487784222 100 E11.621 Pain in ri ght hip joint 5828676503 11871 M25.551 Prolonged QT interval 11 I45.81 Health Concerns Section Related Observation LastModified by Organization Detai ls LastModified Time None Recorded Concern Status LastModified by Organization Details LastModified Time None Recorded Payers Encounter Date Sequence Insurance Name Policy Number Policy Loo Covered Member ID Loo Member ID Guarantor Name 04/23/2024 1 [facility] [id number] Charles Hernandez [id number] Charles Nick Notes Date Note Type Note [...] hour days. Will gladly update and edit [facility] paperwork according to how he feels. Mediport next week, then chemo late next week. Nervous/ anxious about starting chemo. OLGA MARCUS, BLOOD TESTER [address], [place], [address], [place] [facility]. 04/23/2024 15:51:08
--- OUTSIDE RECORDS SUMMARY | 2024-05-27 17:55 | XMS_ITS | Clinical Summary ---
Author Organization [facility] Address [address] [place] [address] Care Team Providers Care Carton Stapler Name Role Phone Ramiro Cardenas MD Primary Care Provider [phone] Allergies Active Allergy Reactions Criticality Noted Date [...] Overview: Added automatically from request for surgery [id number] Combined forms of age-related cataract of right eye 02/27/2022 Overview: Added automatically from request for surgery [id number] Encounters Date Type Department Care Team Description 02/26/2024 Lab Requisition [facility] Pathology & Laboratory Medicine - [address] [address] Outr Resulting Lab, Provider from Last 3 [...] season) 2024 Medical Devices Implanted Type Area Lining Marker Device Identifier Shelf Expiration Date Model / Serial / Lot Lens Intraocular Toric Astigmatism Correction Foldable +20.0d Acrysof Iq [id number] - [id number] Implanted:Qty: 1 on 05/03/2022 by Ezequiel Andrea MD at [facility] Lens Right: Eye [employer] 05/06/2026 [id number]. 0 / [id number] / Lens Intraocular Toric Astigmatism Correction Foldable +18.5d Acrysof Iq [id number] - [id number] Implanted:Qty: 1 on 05/10/2022 by Ezequiel Andrea MD at [facility] Lens Left: Lens [employer] [id number]. [id number] / [id number] / Procedures Procedure Name Priority Date/Time Associated Diagnosis Comments CEA Routine 02/26/2024 9:00 EDT from Last 3 Months Results * CEA (02/26/2024 9:00 EDT) CEA 1.7 See Note ng/mL 02/26/2024 22:48 EDT [facility] Comment: % Distribution of [...] Resulting Lab CHEMISTRY & BLOOD GAS ORDERABLES [facility] [address] [place] [address] from Last 3 Months Advance Directives For more information, please contact: [phone] * Full Code (Latest Code Status on [...] Made the Decision? Default/Not Discussed Care Teams Carton Stapler Relationship Specialty Start Date End Date Ramiro Cardenas MD [address] [place] [address] PCP - General 04/24/09
--- OUTSIDE RECORDS SUMMARY | 2024-05-27 17:55 | XMS_ITS | Continuity of Care Document ---
Author Organization [place] - [facility] Address [address] [place] [address] Assessment Encounter Date Assessment Date Assessment LastModified [...] with his partner who is an RN. [facility] Not available 03/24/2024 16:03:45 Plan of Treatment [...] hemoglobi n (Hb), fingersti ck, blood 2023 07 024 [facility], [address] [place] [address], [phone], 03/24/2024 16:03:13 Referral None recorded. Procedures IV infusion, hydration , 31-60 min (PROC) 2023 024 [facility] Not available 03/24/2024 16:03:11 Surgeries None recorded. Imaging None recorded. Medication Orders None recorded. Patient TargetsNo targets recorded. Patient InstructionsNo instructions recorded. Reason for Referral Typewriter Aligner Referral for Nodu le of subcutaneous tissue of left foot provider is wondering why this pt has not been contacted yet - resending Referring Physician: Olga Marcus [facility], Encounter Date: 09/23/2023 Sleep Medicine Referral for Obstructive sleep apnea syndrome Referring Physician: Olga Marcus [facility], Encounter Date: 11/07/2023 Urologist Referral for Erect ile dysfunction Referring Physician: Olga Marcus [facility], Encounter Date: 11/07/2023 EGD Referral for Digestive s ystem finding Referring Physician: Olga Marcus [facility], Encounter Date: 11/07/2023 Plastic Surgeon Referral for Gynecomastia Referring Physician: Olga Marcus [facility], Encounter Date: 12/05/2023 Endocrinology Referral for T ype 2 diabetes mellitus without complication Referring Physician: Olga Marcus [facility], Encounter Date: 02/23/2024 Vascular Surgeon Referral fo r Cramp in lower limb Referring Physician: Olga Marcus [facility], Encounter Date: 02/23/2024 Oxide Furnace Tender Referral f or Type 2 diabetes mellitus without complication referral for Freestyle Lina 3 Referring Physician: Olga Marcus [facility], Encounter Date: 04/02/2024 Physical Therapist Referral for Pain of left shoulder joint Referring Physician: Olga Marcus [facility], Encounter Date: 04/20/2024 Results Created Date Observation Date Name Description Value Unit Range Abnormal Flag Note LastModifiedBy Organization Detail LastModifiedTime 03/24/2003/24/2024 hemog lobin (Hb), finge rstic k, blood HGB 15 g/dL Not Available [facility] [address] [place], [address], 03/24/2024 13:20:25 02/26/20 24 02/26/2024 CT imagi ng repor t Patien t Name: Charles Nick Unit #: [id number] Loc: DI Orderi ng Provid er: Quang Hernandez Chanaifeanyi t #: [id number] Status : REG CLI Primar y [...] tion); or iterat kong recons tructi on. 612-0 002: Total DLP = 0.00 mGy-cm Ordere d By: Quang Hernandez CC: [facility] ------ ------ ------ ------ ------ ------ ------ ------ ------ ------ ------ ------ ---- Dictat ed By: Juan Delacruz M.D. 1106 Transc ribed By: Juan Delacruz 1106 This is privil eged, confid ential inform ation intend ed only for the provid er named. Any use or distri bution by any person other than this provid er is strict ly prohib ited. If you receiv e this report in error, please notify us immedi navinly at [phone] and return the origin al report to us at the addres s above. Thank- you. [facility] [address], [place], [address] 02/26/2024 13:16:53 03/24/20 24 03/24/2024 CT imagi ng repor t David t Name: Charles Nick Unit #: [id number] Loc: ER Orderi ng Provid er: Rayo Ramos M.D. t #: [id number] Status : REG ER Primar y [...] l air seen in this area. 5. [facility] gs were discus sed with Dr. Love [...] ZATION : All CT [facility] at [facility] use at least one of these dose optimi zation techni ques: automa dotty exposu re contro l; mA and/or kV adjust ment per patien t size (inclu shaw target ed exams where dose is matche d to clinic al indica tion); or iterat kong recons tructi on. 709-0 028: Total DLP = 0.00 mGy-cm Ordere [...] error, please notify us immedi navinly at and return the origin al report to us at the addres s above. Thank- you. [facility] [address] [place], [address] 03/25/2024 04:38:41 03/26/20 24 03/25/2024 elect gerardo olvera am EKG PATIEN T NAME: Charles Nick UNIT #: [id number] ORDERI NG PROVID ER: Kenny Garcia DO ACCOUN T #: [id number] PRIMAR Y CARE PROVID ER: Alexa CHAMBERLAIN APRN DATE/T JOHN OF SERVIC E: 1507 : 1975 DAYNA SALEEM LOCATI ON: ER ------ ------ --- APPROV ED REPORT ------ ------ -- Exam: Restin g ECG Reason for Exam: Hypote charmaine holland Locati on: E HR:112 bpm ECG Measur ements Heart Rate 112 AXIS LA 152 P 54 QRSd 103 QRS 70 [...] Time: 0008 ------ ------ --- ADDEND UM APPRO ED REPORT ------ ------ -- Exam: Restin g ECG Reason for Exam: Hypote charmaine holland Locati on: E HR:112 bpm ECG Measur ements Heart Rate 112 AXIS LA 152 P 54 QRSd 103 QRS 70 [...] ly signed by: [id number] Cosign ed by: [facility] [address] [place], [address] 03/26/2024 08:57:17 Result Notes None recorded. Problems Name Problem SNOMED Code Status Onset Date Resolution Date Notes Provider Name and Address Organization Details Recorded Time Jasmyne bethea 98778663 Active [address] [facility] 4 13:29:59 Nephroti c syndrome 13574388 Completed 200603/03/2007 Not Available [facility] 3 04:42:43 Chronic kidney disease stage [address]74883 Active [address] [facility] 4 13:29:40 Obstruct kong sleep apnea syndrome 60239670 Active 2013 [facility] 4 13:30:42 Anxiety 36101362 Active 2014 [facility] 4 13:29:15 Type 2 diabetes mellitus without complica tion 430135479 Active 2015 [facility] 4 13:30:59 Obesity 465103709 Active 2015 [facility] 4 13:30:35 Edema 199120627 Active 2015 [facility] 4 13:29:50 Allergy to food 926260832 Active 2016 [facility] 4 13:29:10 Adult health examinat ion Active 2018 [facility] 4 13:29:06 Erectile dysfunct ion 475014481 Active 2018 [facility] 4 13:29:54 Neuropat hy due to type 2 diabetes mellitus 80330493434 9106 Active [facility] 4 13:30:25 Screenin g for malignan t neoplasm of colon Active 2020 [facility] 4 13:30:50 Digestiv e system finding 739870264 Active 2021 [facility] 4 13:29:44 Vitamin B deficien cy 28245384 Active 2021 [facility] 4 13:31:03 Pre-surg mirta evaluati on Completed 202106/01/2022 Problem Code: Z01.818; Problem Code Type: ICD-10; Not Available [facility] 3 04:42:45 Bilatera l hearing loss 82437157 Active 2021 [facility] 4 13:29:19 Venereal disease screenin g Completed 202108/24/2022 Problem Code: Z11.3; Problem Code Type: ICD-10; Not Available [facility] 3 04:42:45 Hypomagn esemia 743941306 Active 2022 [facility] 4 13:30:11 Secondar y polycyth emia 12727124 Active 2022 [facility] 4 13:30:54 Kidney stone 61432122 Active 2022 [facility] 4 13:30:16 History of polyp of colon 777507225 Active 2022 [facility] 4 13:30:07 Disorder of nasal sinus 6848770 Active 2022 OLGA MARCUS, [employer] [address], [place], [address] , [facility] 4 08:08:16 Nonalcoh olic steatohe patitis 430585800 Active 2022 Alie dorsey, [facility] 4 13:30:32 Body mass index 30+ - obesity 536376766 Active 2022 Alie dorsey, [facility] 4 13:29:23 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 mellitus 898341974 [facility] [facility] 4 13:30:46 Nephroti c syndrome , diffuse membrano us glomerul onephrit is 574520881 Active [address] [facility] 4 13:30:20 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 17288696560 00 Active 2022 Alieher Mervat dorsey, [facility] 4 13:30:03 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 22853946347 00 Completed 202004/10/2021 Problem Code: E11.621; Problem Code Type: ICD-10; [facility] 13:30:03 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 76456373127 00 Completed 202007/25/2022 Problem Code: E11.621; Problem Code Type: ICD-10; Alie dorsey, [facility] 4 13:30:03 Hypergly cemia due to type 2 diabetes mellitus 72897122948 9109 Completed 201608/15/2017 Problem Code: E11.65; Problem Code Type: ICD-10; Not Available [facility] 3 04:42:47 Phimosis 945208620 Completed 201704/29/2022 Problem Code: N47.1; Problem Code Type: ICD-10; Not Available [facility] 3 04:42:47 Snoring 30863028 Completed 201303/01/2016 Not Available [facility] 3 04:42:48 Imaging of abdomen abnormal 218643672 Completed 202212/20/2022 Problem Code: R93.5; Problem Code Type: ICD-10; Not Available [facility] 3 04:42:48 Adult health examinat ion Completed 201403/01/2016 Problem Code: Z00.00; Problem Code Type: ICD-10; Alie dorsey, [facility] 4 13:29:06 Obesity 820542630 Completed 200606/11/2023 Alie dorsey [facility] 4 13:30:35 Fatigue 43099748 Completed 201303/01/2016 Not Available [facility] 3 04:42:48 Acute upper respirat ory infectio n 40612775 Completed 202004/29/2022 Problem Code: J06.9; Problem Code Type: ICD-10; Not Available [facility] 3 04:42:49 Nausea 224728493 Completed 202212/20/2022 Problem Code: R11.0; Problem Code Type: ICD-10; Not Available [facility] 3 04:42:49 Type 2 diabetes mellitus without complica tion 901375490 Completed 202201/10/2023 Problem Code: E11.9; Problem Code Type: ICD-10; Alie dorsey [facility] 4 13:30:59 Dyssomni a 30035181 Completed 201303/01/2016 Problem Code: 780.59; Problem Code Type: ICD-9; Not Available [facility] 3 04:42:49 Acute bronchit is 07737960 Completed 201708/09/2019 Problem Code: J20.9; Problem Code Type: ICD-10; Not Available [facility] 3 04:42:49 Nausea and vomiting 24039080 Completed 202107/25/2022 Problem Code: R11.2; Problem Code Type: ICD-10; Not Available [facility] 3 04:42:50 Sleep apnea 92657696 Completed 201306/11/2023 Problem Code: 780.57; Problem Code Type: ICD-9; Not Available [facility] 3 04:42:50 Disturba nce of consciou sness 6427305 Completed 201303/01/2016 Problem Code: 780.09; Problem Code Type: ICD-9; Not Available [facility] 3 04:42:50 Acute sinusiti s 39449697 Completed 202004/10/2021 Problem Code: J01.90; Problem Code Type: ICD-10; Not Available [facility] 3 04:42:50 Balaniti s 26927263 Completed 201608/15/2017 Problem Code: N48.1; Problem Code Type: ICD-10; Not Available [facility] 3 04:42:51 Sleep disorder 98619057 Completed 201303/01/2016 Problem Code: 780.50; Problem Code Type: ICD-9; Not Available [facility] 3 04:42:51 Nodule of subcutan eous tissue of left foot 04596141956 892406 Active 2023 OLGA MARCUS APRN [address], [place], [address] , [facility]. 4 08:13:06 Benign prostati c hyperpla mercy 533763888 Active 2023 Alie dorsey, [facility] 4 13:31:06 Headache 88590518 Active 2023 OLGA MARCUS APRN [address], [facility] [address] , [facility]. 4 08:57:45 Gynecoma stia 8610327 Active 2023 Alie Crowell null, [facility] 4 13:31:13 Ulcer of left foot 759064425 Active 2023 ARNALDO GOMEZ CMA null, [facility] 4 09:47:50 Fibromat osis of plantar fascia of left foot 77064822955 393242 Active 2023 Alie Crowell null, [facility] 4 13:31:10 Carcinom a of duodenum 892862388 Active 2023 EGD 01/06, biopsy at that time OLGA MARCUS APRN [address], [place], [address] , [facility] 4 09:30:26 Pain of left shoulder joint 55272446845 636840 Active 2023 OLGA MARCUS APRN [address], [place], [address] , [facility] 4 09:14:45 Cramp in lower limb 987216741 Active 2023 OLGA MARCUS APRN [address], [place], [address] , [facility] 4 09:15:29 Pain in right hip joint 32583808405 9102 Active 2023 OLGA MARCUS APRN [address], [place], [address] , [facility]. 4 09:19:09 Prolonge d QT interval 974878978 Active 2023 OLGA MARCUS APRN [address], [place], [address] , [facility]. 4 09:53:55 Hypergly cemia due to type 1 diabetes mellitus 64840687634 9101 Active 2023 OLGA MARCUS APRN [address] [place], [address] , [facility] 4 14:16:49 Notes:*Problem Name: Duodena l polyp *Problem Status: active *Comments: *Problem Code: K31.7 *Problem Code Type: ICD-10 *Note Date: 2022 Problem Notes None recorded. Procedures Surgical History Date Name Laterality Status Provider Name and Address Organization Details Recorded Time 4 IV insert completed Kinsey Oliveira RN [facility] 03/24/2024 15:58:08 4 endoscopy completed ARNALDO GOMEZ CMA [facility], [facility] 01/02/2024 15:34:11 Imaging Results None recorded. Procedure Notes None recorded. Medical Equipment None Reported. Allergies Allergen ID Allergen Name Allergen Category Reaction Reaction Severity Criticality Documentation Date Start Date Code Code System Note Provider Name and Address Organization Details Recorded Time 43066 Medicinal product containin g penicilli n and acting as antibacte rial agent (product) medicatio n other mild Not available 11/29/20232006 25525 05 SNOMED Swell ing of throa t Loren Carina [facility], [facility] 4 13:58:03 Medications Name Sig Start [...] oral route as needed. [address] [facility] d/c summary 04/01/24 Not Available Not Available [...] 150 mg capsule 05/[address] [facility] d/c summary 04/01/24 Not Available Not Available [...] EVERY DAY NEEDED 05/[address] [facility] d/c summary 04/01/24 Not Available Not Available [...] a day by oral route. active Per [facility] d/c summary continue 04/01/24 Not Available Not [...] 2023 active Not Available Not Available Not Avrichard malik BD Ultra-Fin e Mini Pen Needle [...] 2016 active Not Available Not Available Not Avrichard malik Prodigy Autocode Meter kit Check glucose [...] E11.9 Not Available Not Available Not Avai king Uriostegui (honey) 80 % topical gel Apply [...] MOUTH EVERY DAY 04/[address] [facility] d/c summary 04/01/24 Not Available Not Available [...] Available No t Available FreeStyle Lina 3 [place] USE DIRECTED active Not Available Not Available [...] mm[Hg] 84 mm[Hg] 62 mm[Hg] STEPHANI JOHNSON [facility] 13:16:26 Social History Question Answer Notes LastModified by Organizat ion Details LastModified Time Tobacco Smoking Status Never Smoker ARNALDO GOMEZ [facility] 12/05/2023 08:46:50 What Was The Date Of [...] virus, trivalent, PF 05/27/2024 completed OLGA MARCUS, [employer] [address], [place], [address], [facility]. 05/27/2024 14:49:23 Td (adult), 2 Lf tetanus toxoid, preservative free, adsorbed 04/22/2017 completed Not Available [facility] 07/25/2023 06:32:54 Tdap 02/27/2007 completed Not Available [facility] 06:32:54 Influenza, split virus, quadrivalent, PF 09/21/2020 completed Not Available [facility] 07/25/2023 06:32:54 Influenza, split virus, quadrivalent, PF 06/19/2021 completed Not Available [facility] 07/25/2023 06:32:54 Influenza, split virus, quadrivalent, PF 08/02/2019 completed Not Available [facility] 07/25/2023 06:32:54 COVID-19 vaccine, vector-nr, rS-Ad26, PF, 0.5 mL 01/19/2021 completed Not Available [facility] 07/25/2023 06:32:54 pneumococcal polysaccharide PPV23 09/21/2020 completed Not Available [facility] 2022 06:32:54 influenza, unspecified formulation 07/05/2016 completed Not Available [facility] 07/25/2023 06:32:54 influenza, unspecified formulation 07/16/2017 completed Not Available [facility] 07/25/2023 06:32:54 Influenza, split virus, quadrivalent, PF 06/17/2023 completed Not Available [facility] 09/26/2023 05:33:26 Past Encounters Encounter ID Performer Location Encounter Start Date Encounter Closed Date Diagnosis/Indication Diagnosis SNOMED-CT Code Diagnosis ICD10 Code [id number] OLGA MARCUS APRN [address] [address] 02/23/2024 08:58:06 02/23/2024 09:59:23 Type 2 diabetes mellitus without complication 045115990 E11.9 E11.40 Essential hypertension 66118038 I10 N18.9 R60.9 Anxiety 30220288 F41.9 F32.A Z73.3 Obstructiv e sleep apnea syndrome 49000971 G47.33 Body mass index 30+ - obesity 800227074 Z68.36 Digestive system finding 909579497 R19.8 Nonalcohol ic steatohepatitis 148206051 K75.81 Secondary polycythemia 61715249 D75.1 Disorder o f nasal sinus 5129698 J34.9 Nephrotic syndrome, diffuse membranous glomerulonephritis 120422419 N04.20 Nodule of subcutaneous tissue of left foot 0566388566 9777912 R22.42 Erectile dysfunction 860 167568 F52.21 Benign pro static hyperplasia 386958879 N40.0 Carcinoma of duodenum 25 1567410 C17.0 Pain of le ft shoulder joint 8922325076 0398272 M25.512 Cramp in lower limb 4499 30490 R25.2 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 8021130842 100 E11.621 Pain in ri ght hip joint 3565885711 91048 M25.909 [id number] GURJIT WILLIS MD [address] [address] 03/15/2024 14:48:33 03/15/2024 15:46:20 Carcinoma of duodenum 637528227 C17.0 [id number] ADA HAMM MD [address] [address] 03/24/2024 13:12:40 03/24/2024 14:17:10 Tachycardia 4512592 R00.0 Lethargy 303498451 R53.8 3 Low blood pressure 84090 003 I95.9 Health Concerns Section Related Observation LastModified by Organization Detai ls LastModified Time None Recorded Concern Status LastModified by Organization Details LastModified Time None Recorded Payers Encounter Date Sequence Insurance Name Policy Number Policy Loo Covered Member ID Loo Member ID Guarantor Name 03/24/2024 1 [facility] [id number] Charles Franks Mary [id number] Charles Nick Notes Date Note Type Note [...] lot. ADA HAMM MD [address], [place], [address], [facility]. 03/24/2024 16:04:59
--- OUTSIDE RECORDS SUMMARY | 2024-05-27 17:55 | XMS_ITS | Data Portability ---
Author Organization [place] - [facility], [facility] [place] [place] [address] Assessment Encounter Date Assessment Date Assessment LastModified by Organization Details LastModified Time 02/23/2024 02/23/2024 The total time devoted to today's encounter, including both the alhv-oz-htcc time with the patient and/or family/caregiv er and gee-liiz-ua-fa ce time I personally spent is 40 [...] devoted to today's encounter, including both the mczx-qt-exwl time with the patient and/or family/caregiv er and enc-ytsi-yl-fa ce time I personally spent is 40 [...] Last Modified Time Details Appointments Follow Up 30 2023 02:00P M Not available Not available Not available Medical Nutrition Therapy 60 2023 02:00P M Not available Not available Not available Office Visit 30 2023 03:00P M Not available Not available Not available Lab hemoglobi n (Hb), fingersti ck, blood 2023 024 [facility], [address] [place] [address], [id number], 03/24/2024 16:03:13 hemoglobi n A1C, fingersti ck 2023 024 [facility], [address] [place] [address], [id number], 04/23/2024 13:02:39 Referral vascular surgeon referral 2023 024 [email or web address] [facility], [address] [place], [address], 04/23/2024 14:43:43 endocrino logy referral 2023 024 [facility], [address] [place], [address], 05/21/2024 10:44:08 Procedures IV infusion, hydration , 31-60 min (PROC) 2023 024 [email or web address] Not available 03/24/2024 16:03:11 Surgeries None recorded. Imaging None recorded. Medication Orders citalopra m 40 mg tablet 2023 024 [facility], [address] [place], [address], 02/23/2024 12:06:26 lorazepam 0.5 mg tablet 2023 024 [facility], [address] [place], [address], 05/27/2024 13:40:18 Patient TargetsNo targets recorded. Patient Instructions Encounter Date Encounter Id Patient Instructions Last Modified By Organization Details Last Modified Time 04/23/2024 [id number] Increase semglee to 13 units daily for 7 days, then if sugar still greater than 120, increase to 16 units. Not available 04/23/2024 12:39:31 Reason for Referral Custodian Supervisor Referral for Nodu le of subcutaneous tissue of left foot provider is wondering why this pt has not been contacted yet - resending Referring Physician: [facility]ga [facility], Encounter Date: 09/23/2023 Sleep Medicine Referral for Obstructive sleep apnea syndrome Referring Physician: Ol[facility], Encounter Date: 11/07/2023 Urologist Referral for Erect ile dysfunction Referring Physician: [facility], Encounter Date: 11/07/2023 EGD Referral for Digestive s ystem finding Referring Physician: [facility], Encounter Date: 11/07/2023 Plastic Surgeon Referral for Gynecomastia Referring Physician: [facility], Encounter Date: 12/05/2023 Endocrinology Referral for T ype 2 diabetes mellitus without complication Referring Physician: [facility], Encounter Date: 02/23/2024 Vascular Surgeon Referral fo r Cramp in lower limb Referring Physician: [facility], Encounter Date: 02/23/2024 Sales Associate Cashier Referral f or Type 2 diabetes mellitus without complication referral for Freestyle Lina 3 Referring Physician: [facility], Encounter Date: 04/02/2024 Physical Therapist Referral for Pain of left shoulder joint Referring Physician: [facility], Encounter Date: 04/20/2024 Results Created Date Observation Date Name Description Value Unit Range Abnormal Flag Note LastModifiedBy Organization Detail LastModifiedTime 02/02/20 24 02/02/2024 COMPR EHENS KIRAN METAB OLIC PANEL calcium 9.3 mg/dL 8.5-10 .1 normal Not Available [address] [place], [address] 02/02/2024 16:16:08 02/02/20 24 02/02/2024 COMPR EHENS KIRAN METAB OLIC PANEL glucose 234 mg/dL 74-106 high Not Available Debra floyd [address] [place], [address] 02/02/2024 16:16:08 02/02/20 24 02/02/2024 COMPR EHENS KIRAN METAB OLIC PANEL BUN 13 mg/dL 7-18 normal Not Available Debra floyd [address] [place], [address] 02/02/2024 16:16:08 02/02/20 24 02/02/2024 COMPR EHENS KIRAN METAB OLIC PANEL creatinine 1.2 mg/dL 0.70-1 .30 normal Not Available [address] [place], [address] 02/02/2024 16:16:08 02/02/20 24 02/02/2024 COMPR EHENS [...] young er-ag ed adult s. Not Available [address] [place], [address] 02/02/2024 16:16:08 02/02/20 24 02/02/2024 COMPR EHENS KIRAN METAB OLIC PANEL total protein 7.4 g/dL 6.4-8. 2 normal Not Available [address] [place], [address] 02/02/2024 16:16:08 02/02/20 24 02/02/2024 COMPR EHENS KIRAN METAB OLIC PANEL albumin 3.8 g/dL 3.4-5. 0 normal Not Available [address] [place], [address] 02/02/2024 16:16:08 02/02/20 24 02/02/2024 COMPR EHENS KIRAN METAB OLIC PANEL bilirubin, total 0.4 mg/dL 0.2-1. 0 normal Not Available [address] [place], [address] 02/02/2024 16:16:08 02/02/20 24 02/02/2024 COMPR EHENS KIRAN METAB OLIC PANEL alk phos 94 U/L 46-116 normal Not Available [address] [place], [address] 02/02/2024 16:16:08 02/02/20 24 02/02/2024 COMPR EHENS KIRAN METAB OLIC PANEL sodium 138 mmol/ L 136-14 5 normal Not Available [address] [place], [address] 02/02/2024 16:16:08 02/02/20 24 02/02/2024 COMPR EHENS KIRAN METAB OLIC PANEL potassium 4.2 mmol/ L 3.5-5. 1 normal Not Available [address] [place], [address] 02/02/2024 16:16:08 02/02/20 24 02/02/2024 COMPR EHENS KIRAN METAB OLIC PANEL chloride 98 mmol/ L 98-107 normal Not Available [address] [place], [address] 02/02/2024 16:16:08 02/02/20 24 02/02/2024 COMPR EHENS KIRAN METAB OLIC PANEL CO2 31.5 mmol/ L 21.0-3 2.0 normal Not Available [address] [place], [address] 02/02/2024 16:16:08 02/02/20 24 02/02/2024 COMPR EHENS KIRAN METAB OLIC PANEL anion gap 8.5 mmol/ L 3-11 normal Not Available [address] [place], [address] 02/02/2024 16:16:08 02/02/20 24 02/02/2024 COMPR EHENS KIRAN METAB OLIC PANEL AST 18 U/L 15-37 normal Not Available Debra [address] [place], [address] 02/02/2024 16:16:08 02/02/20 24 02/02/2024 COMPR EHENS KIRAN METAB OLIC PANEL ALT 38 U/L 16-63 normal Not Available Debra [address] [place], [address] 02/02/2024 16:16:08 02/02/20 24 02/02/2024 COMPL ETE BLOOD COUNT W/DIF F WBC 8.18 10_3/ uL 4.4-10 .8 normal Not Available [address] [place], [address] 02/02/2024 16:22:50 02/02/20 24 02/02/2024 COMPL ETE BLOOD COUNT W/DIF F RBC 6.37 10_6/ uL 4.36-5 .78 high Not Available [address] [place], [address] 02/02/2024 16:22:50 02/02/20 24 02/02/2024 COMPL ETE BLOOD COUNT W/DIF F HGB 15.6 g/dL 13.5-1 7.5 normal Not Available [address] [place], [address] 02/02/2024 16:22:50 02/02/20 24 02/02/2024 COMPL ETE BLOOD COUNT W/DIF F HCT 49.7 % 40.0-5 0.0 normal Not Available [address] [place], [address] 02/02/2024 16:22:50 02/02/20 24 02/02/2024 COMPL ETE BLOOD COUNT W/DIF F MCV 78 fL 80-95 low Not Available [address] [place], [address] 02/02/2024 16:22:50 02/02/20 24 02/02/2024 COMPL ETE BLOOD COUNT W/DIF F MCH 24.5 pg 27.0-3 3.0 low Not Available [address] [place], [address] 02/02/2024 16:22:50 02/02/20 24 02/02/2024 COMPL ETE BLOOD COUNT W/DIF F MCHC 31.4 % 32.0-3 6.0 low Not Available [address] [place], [address] 02/02/2024 16:22:50 02/02/20 24 02/02/2024 COMPL ETE BLOOD COUNT W/DIF F RDW 15.0 % 11.8-1 4.1 high Not Available [address] [place], [address] 02/02/2024 16:22:50 02/02/20 24 02/02/2024 COMPL ETE BLOOD COUNT W/DIF F platelet count 208 10_3/ uL 130-40 0 normal Not Available [address] [place], [address] 02/02/2024 16:22:50 02/02/20 24 02/02/2024 COMPL ETE BLOOD COUNT W/DIF F MPV 11.7 fL 8.0-11 .0 high Not Available [address] [place], [address] 02/02/2024 16:22:50 02/02/20 24 02/02/2024 COMPL ETE BLOOD COUNT W/DIF F neutrophils % 70.5 % Not Available Paras nugent [address] [place], [address] 02/02/2024 16:22:50 02/02/20 24 02/02/2024 COMPL ETE BLOOD COUNT W/DIF F lymphocytes % 22.4 % Not Available [address] [place], [address] 02/02/2024 16:22:50 02/02/20 24 02/02/2024 COMPL ETE BLOOD COUNT W/DIF F monocytes % 4.5 % Not Available [address] [facility] [place], [address] 02/02/2024 16:22:50 02/02/20 24 02/02/2024 COMPL ETE BLOOD COUNT W/DIF F eosinophils % 1.5 % Not Available [address] [facility] [place], [address] 02/02/2024 16:22:50 02/02/20 24 02/02/2024 COMPL ETE BLOOD COUNT W/DIF F basophils % 0.6 % Not Available [address] [facility] [place], [address] 02/02/2024 16:22:50 02/02/20 24 02/02/2024 COMPL ETE BLOOD COUNT W/DIF F immature grans % 0.5 % Not Available [address] [facility] [place], [address] 02/02/2024 16:22:50 02/02/20 24 02/02/2024 COMPL ETE BLOOD COUNT W/DIF F nucleated RBC 0.0 % 0.0-0. 3 normal Not Available [address] [facility] [place], [address] 02/02/2024 16:22:50 02/02/20 24 02/02/2024 COMPL ETE BLOOD COUNT W/DIF F absolute neutrophil count 5.77 10_3/ uL 1.2-6. 7 normal Not Available [address] [place], [address] 02/02/2024 16:22:50 02/02/20 24 02/02/2024 COMPL ETE BLOOD COUNT W/DIF F absolute lymphocyte count 1.83 10_3/ uL 1.2-3. 4 normal Not Available [address] [place], [address] 02/02/2024 16:22:50 02/02/20 24 02/02/2024 COMPL ETE BLOOD COUNT W/DIF F absolute monocyte count 0.37 10_3/ uL 0.1-0. 8 normal Not Available [address] [place], [address] 02/02/2024 16:22:50 02/02/20 24 02/02/2024 COMPL ETE BLOOD COUNT W/DIF F absolute eosinophil count 0.12 10_3/ uL 0.0-0. 7 normal Not Available [address] [place], [address] 02/02/2024 16:22:50 02/02/20 24 02/02/2024 COMPL ETE BLOOD COUNT W/DIF F absolute basophil count 0.05 10_3/ uL 0.0-0. 2 normal Not Available [address] [place], [address] 02/02/2024 16:22:50 02/02/20 24 02/02/2024 COMPL ETE BLOOD COUNT W/DIF F diff comment RBC Morph Review ed Not Available [address] [place], [address] 02/02/2024 16:22:50 02/02/20 24 02/02/2024 COMPL ETE BLOOD COUNT W/DIF F RBC morphology Normal Not Available [address] [place], [address] 02/02/2024 16:22:50 02/02/20 24 02/02/2024 HEMOG LOBIN A1C hemoglobin A1C 8.2 % <5.7 high Refer ence Range s <5.7 Bren l 5.7-6 .4% Predi abete s 6.5% or great er Diagn ostic for diabe gene (if confi rmed) Refer ences : 1. Ameri can Diabe gene Assoc iatio n. Clas sific ation and Diagn osis of Diabe gene. Diabe gene Care 2019 Sep;4 2(Sup pleme nt 1):S1 3-s28 . Not Available [address] [place], [address] 02/02/2024 16:34:25 02/24/20 24 02/24/2024 GRAM STAIN [...] Vanco mycin S <=0.5 F Not Available [address] [place], [address] 03/03/2024 15:41:49 02/24/20 24 02/29/2024 WOUND AEROB [...] - MODER ATE GROWT H Not Available [address] [facility] [place], [address] 03/03/2024 15:41:47 02/24/20 24 02/26/2024 ANAER OBIC CULTU RE anaerobic culture Anaer obic Cultu re 02/25 PRELI MINAR Y REPOR T: No anaer obic growt h in 2 days. Not Available [address] [place], [address] 02/26/2024 12:18:00 02/24/20 24 02/26/2024 ANAER OBIC CULTU RE anaerobic culture Anaer obic Cultu re 02/25 PRELI MINAR Y REPOR T: No anaer obic growt h in 2 days. Not Available [address] [facility] [place], [address] 02/28/2024 14:10:27 02/24/20 24 03/01/2024 ANAER OBIC CULTU RE anaerobic culture O:ANG NR (ORGA NISM ID: 1.1) - Anaer obic gram negat kiran denilson Anaer obic Cultu re (ORGA NISM ID: 1.1) - GROWT H(REP ORT) (ORGA NISM ID: 1.1) - RARE GROWT H Not Available [address] [facility] [place], [address] 03/01/2024 12:12:05 02/24/20 24 03/03/2024 ANAER OBIC CULTU RE anaerobic culture O:ANG NR (ORGA NISM ID: 1.1) - Anaer obic gram negat kiran denilson Anaer obic Cultu re (ORGA NISM ID: 1.1) - GROWT H(REP ORT) (ORGA NISM ID: 1.1) - RARE GROWT H Not Available [address] [place], [address] 03/03/2024 15:39:46 02/26/20 24 02/26/2024 COMPR EHENS KIRAN METAB OLIC PANEL calcium 9.2 mg/dL 8.5-10 .1 normal Not Available [address] [place], [address] 02/26/2024 12:45:03 02/26/20 24 02/26/2024 COMPR EHENS KIRAN METAB OLIC PANEL glucose 275 mg/dL 74-106 high Not Available Debra [address] [place], [address] 02/26/2024 12:45:03 02/26/20 24 02/26/2024 COMPR EHENS KIRAN METAB OLIC PANEL BUN 14 mg/dL 7-18 normal Not Available Debra [address] [place], [address] 02/26/2024 12:45:03 02/26/20 24 02/26/2024 COMPR EHENS KIRAN METAB OLIC PANEL creatinine 1.1 mg/dL 0.70-1 .30 normal Not Available [address] [place], [address] 02/26/2024 12:45:03 02/26/20 24 02/26/2024 COMPR EHENS [...] young er-ag ed adult s. Not Available [address] [place], [address] 02/26/2024 12:45:03 02/26/20 24 02/26/2024 COMPR EHENS KIRAN METAB OLIC PANEL total protein 7.7 g/dL 6.4-8. 2 normal Not Available [address] [place], [address] 02/26/2024 12:45:03 02/26/20 24 02/26/2024 COMPR EHENS KIRAN METAB OLIC PANEL albumin 3.5 g/dL 3.4-5. 0 normal Not Available [address] [place], [address] 02/26/2024 12:45:03 02/26/20 24 02/26/2024 COMPR EHENS KIRAN METAB OLIC PANEL bilirubin, total 0.3 mg/dL 0.2-1. 0 normal Not Available [address] [place], [address] 02/26/2024 12:45:03 02/26/20 24 02/26/2024 COMPR EHENS KIRAN METAB OLIC PANEL alk phos 104 U/L 46-116 normal Not Available [address] [place], [address] 02/26/2024 12:45:03 02/26/20 24 02/26/2024 COMPR EHENS KIRAN METAB OLIC PANEL sodium 135 mmol/ L 136-14 5 low Not Available [address] [place], [address] 02/26/2024 12:45:03 02/26/20 24 02/26/2024 COMPR EHENS KIRAN METAB OLIC PANEL potassium 3.7 mmol/ L 3.5-5. 1 normal Not Available [address] [place], [address] 02/26/2024 12:45:03 02/26/20 24 02/26/2024 COMPR EHENS KIRAN METAB OLIC PANEL chloride 98 mmol/ L 98-107 normal Not Available [address] [place], [address] 02/26/2024 12:45:03 02/26/2008 0302/26/2024 COMPR EHENS KIRAN METAB OLIC PANEL CO2 31.2 mmol/ L 21.0-3 2.0 normal Not Available [address] [place], [address] 02/26/2024 12:45:03 02/26/20 24 02/26/2024 COMPR EHENS KIRAN METAB OLIC PANEL anion gap 5.8 mmol/ L 3-11 normal Not Available [address] [place], [address] 02/26/2024 12:45:03 02/26/20 24 02/26/2024 COMPR EHENS KIRAN METAB OLIC PANEL AST 16 U/L 15-37 normal Not Available Debra [address] [place], [address] 02/26/2024 12:45:03 02/26/20 24 02/26/2024 COMPR EHENS KIRAN METAB OLIC PANEL ALT 36 U/L 16-63 normal Not Available Debra [address] [place], [address] 02/26/2024 12:45:03 02/26/20 24 02/26/2024 ROSALIND TIN ferritin 35 NG/mL 26-388 normal Not Available [address] [place], [address] 02/26/2024 12:45:04 02/26/20 24 02/26/2024 ROSALIND TIN ferritin 35 NG/mL 26-388 normal Not Available [address] [place], [address] 02/26/2024 15:30:37 02/26/20 24 02/26/2024 CEA cea [...] d not be inter peted as absol jojo evide nce for the prese nce or absen ce of rivas walker se. Assay ed on Sieme ns [facility] Cent[facility] ur XPT using chemi lumin escen t techn ology . Value s obtai janice by diffe rent assay metho ds canno t be used inter mota eably . Test perfo rmed or refer red by [facility] [address], [place] [address] Not Available [address] , [place], [address] 02/27/2024 09:37:25 03/24/20 24 03/24/2024 LACTA TE lactate 2.0 mmol/ L 0.6-1. 4 high Not Available [address] [place], [address] 03/24/2024 15:26:58 03/24/20 24 03/24/2024 VENOU S BLOOD GAS pH (venous) 7.16 7.31-7 .41 critical low Criti johnie value pH repor dotty to and readb ack from [facility] at 1524 03/24 by LAB.M OOL Not Available [address] [facility] [place], [address] 03/24/2024 15:28:58 03/24/20 24 03/24/2024 VENOU S BLOOD GAS pCO2 (venous) 33 mmHg 41-51 low Not Available [address] [facility] [place], [address] 03/24/2024 15:28:58 03/24/20 24 03/24/2024 VENOU S BLOOD GAS pO2 (venous) 42 mmHg Not Available [address] [facility] [place], [address] 03/24/2024 15:28:58 03/24/20 24 03/24/2024 VENOU S BLOOD GAS TCO2 (venous) 11 mmol/ L 24-29 low Not Available [address] [place], [address] 03/24/2024 15:28:58 03/24/20 24 03/24/2024 VENOU S BLOOD GAS HCO3 (venous) 12 mmol/ L 23-28 low Not Available [address] [place], [address] 03/24/2024 15:28:58 03/24/20 24 03/24/2024 VENOU S BLOOD GAS BE (venous) -17 mmol/ L -2-3 low Not Available [address] [place], [address] 03/24/2024 15:28:58 03/24/20 24 03/24/2024 VENOU S BLOOD GAS O2 sat (venous) 70 % Not Available [address] [place], [address] 03/24/2024 15:28:58 03/24/20 24 03/24/2024 COMPL ETE BLOOD COUNT W/DIF F WBC 13.73 10_3/ uL 4.4-10 .8 high Not Available [facility] (Registration ) [address] [place] [address] [place], [address], 03/24/2024 15:29:00 03/24/20 24 03/24/2024 COMPL ETE BLOOD COUNT W/DIF F RBC 6.69 10_6/ uL 4.36-5 .78 high Not Available [facility] (Registration ) [address] [place] [address] [place], [address], 03/24/2024 15:29:00 03/24/20 24 03/24/2024 COMPL ETE BLOOD COUNT W/DIF F HGB 16.2 g/dL 13.5-1 7.5 normal Not Available [facility] (Registration ) [address] [place] [address] [place], [address], 03/24/2024 15:29:00 03/24/20 24 03/24/2024 COMPL ETE BLOOD COUNT W/DIF F HCT 50.7 % 40.0-5 0.0 high Not Available [facility] (Registration ) [address] [place] [address] [place], [address], 03/24/2024 15:29:00 03/24/20 24 03/24/2024 COMPL ETE BLOOD COUNT W/DIF F MCV 76 fL 80-95 low Not Available [facility] (Registration ) [address] [place] [address] [place], [address], 03/24/2024 15:29:00 03/24/20 24 03/24/2024 COMPL ETE BLOOD COUNT W/DIF F MCH 24.2 pg 27.0-3 3.0 low Not Available [facility] (Registration ) [address] [place] [address] [place], [address], 03/24/2024 15:29:00 03/24/20 24 03/24/2024 COMPL ETE BLOOD COUNT W/DIF F MCHC 32.0 % 32.0-3 6.0 normal Not Available [facility] (Registration ) [address] [place] [address] [place], [address], 03/24/2024 15:29:00 03/24/20 24 03/24/2024 COMPL ETE BLOOD COUNT W/DIF F RDW 17.4 % 11.8-1 4.1 high Not Available [facility] (Registration ) [address] [place] [address] [place], [address], 03/24/2024 15:29:00 03/24/20 24 03/24/2024 COMPL ETE BLOOD COUNT W/DIF F platelet count 420 10_3/ uL 130-40 0 high Not Available [facility] (Registration ) [address] [place] [address] [place], [address], 03/24/2024 15:29:00 03/24/20 24 03/24/2024 COMPL ETE BLOOD COUNT W/DIF F MPV 9.8 fL 8.0-11 .0 normal Not Available [facility] (Registration ) [address] [place] [address] [place], [address], 03/24/2024 15:29:00 03/24/20 24 03/24/2024 COMPL ETE BLOOD COUNT W/DIF F neutrophils % 84.6 % Not Available [facility] (Registration ) [address] [place] [address] [place], [address], 03/24/2024 15:29:00 03/24/20 24 03/24/2024 COMPL ETE BLOOD COUNT W/DIF F lymphocytes % 7.6 % Not Available [facility] (Registration ) [address] [place] [address] [place], [address], 03/24/2024 15:29:00 03/24/20 24 03/24/2024 COMPL ETE BLOOD COUNT W/DIF F monocytes % 6.3 % Not Available [facility] (Registration ) [address] [place] [address] [place], [address], 03/24/2024 15:29:00 03/24/20 24 03/24/2024 COMPL ETE BLOOD COUNT W/DIF F eosinophils % 0.2 % Not Available [facility] (Registration ) [address] [place] [address] [place], [address], 03/24/2024 15:29:00 03/24/20 24 03/24/2024 COMPL ETE BLOOD COUNT W/DIF F basophils % 0.7 % Not Available [facility] (Registration ) [address] [place] [address] [place], [address], 03/24/2024 15:29:00 03/24/20 24 03/24/2024 COMPL ETE BLOOD COUNT W/DIF F immature grans % 0.6 % Not Available [facility] (Registration ) [address] [place] [address] [place], [address], 03/24/2024 15:29:00 03/24/20 24 03/24/2024 COMPL ETE BLOOD COUNT W/DIF F nucleated RBC 0.0 % 0.0-0. 3 normal Not Available [facility] (Registration ) [address] [place] [address] [place], [address], 03/24/2024 15:29:00 03/24/20 24 03/24/2024 COMPL ETE BLOOD COUNT W/DIF F absolute neutrophil count 11.62 10_3/ uL 1.2-6. 7 high Not Available [facility] (Registration ) [address] [place] [address] [place], [address], 03/24/2024 15:29:00 03/24/20 24 03/24/2024 COMPL ETE BLOOD COUNT W/DIF F absolute lymphocyte count 1.04 10_3/ uL 1.2-3. 4 low Not Available [facility] (Registration ) [address] [place] [address] [place], [address], 03/24/2024 15:29:00 03/24/20 24 03/24/2024 COMPL ETE BLOOD COUNT W/DIF F absolute monocyte count 0.86 10_3/ uL 0.1-0. 8 high Not Available [facility] (Registration ) [address] [place] [address] [place], [address], 03/24/2024 15:29:00 03/24/20 24 03/24/2024 COMPL ETE BLOOD COUNT W/DIF F absolute eosinophil count 0.03 10_3/ uL 0.0-0. 7 normal Not Available [facility] (Registration ) [address] [place] [address] [place], [address], 03/24/2024 15:29:00 03/24/20 24 03/24/2024 COMPL ETE BLOOD COUNT W/DIF F absolute basophil count 0.10 10_3/ uL 0.0-0. 2 normal Not Available [facility] (Registration ) [address] [place] [address] [place], [address], 03/24/2024 15:29:00 03/24/20 24 03/24/2024 COMPR EHENS KIRAN METAB OLIC PANEL calcium 8.9 mg/dL 8.5-10 .1 normal Not Available [address] [place], [address] 03/24/2024 16:05:07 03/24/20 24 03/24/2024 COMPR EHENS KIRAN METAB OLIC PANEL glucose 198 mg/dL 74-106 high Not Available Debra [address] [place], [address] 03/24/2024 16:05:07 03/24/20 24 03/24/2024 COMPR EHENS KIRAN METAB OLIC PANEL BUN 14 mg/dL 7-18 normal Not Available Debra floyd [address] [place], [address] 03/24/2024 16:05:07 03/24/20 24 03/24/2024 COMPR EHENS KIRAN METAB OLIC PANEL creatinine 1.5 mg/dL 0.70-1 .30 high Not Available [address] [place], [address] 03/24/2024 16:05:07 03/24/20 24 03/24/2024 COMPR EHENS [...] young er-ag ed adult s. Not Available [address] [place], [address] 03/24/2024 16:05:07 03/24/20 24 03/24/2024 COMPR EHENS KIRAN METAB OLIC PANEL total protein 7.8 g/dL 6.4-8. 2 normal Not Available [address] [place], [address] 03/24/2024 16:05:07 03/24/20 24 03/24/2024 COMPR EHENS KIRAN METAB OLIC PANEL albumin 3.0 g/dL 3.4-5. 0 low Not Available [address] [place], [address] 03/24/2024 16:05:07 03/24/20 24 03/24/2024 COMPR EHENS KIRAN METAB OLIC PANEL bilirubin, total 0.52 mg/dL 0.2-1. 0 normal Not Available [address] [place], [address] 03/24/2024 16:05:07 03/24/20 24 03/24/2024 COMPR EHENS KIRAN METAB OLIC PANEL alk phos 94 U/L 46-116 normal Not Available [address] [place], [address] 03/24/2024 16:05:07 03/24/20 24 03/24/2024 COMPR EHENS KIRAN METAB OLIC PANEL sodium 137 mmol/ L 136-14 5 normal Not Available [address] [place], [address] 03/24/2024 16:05:07 03/24/20 24 03/24/2024 COMPR EHENS KIRAN METAB OLIC PANEL potassium 3.4 mmol/ L 3.5-5. 1 low Not Available [address] [place], [address] 03/24/2024 16:05:07 03/24/20 24 03/24/2024 COMPR EHENS KIRAN METAB OLIC PANEL chloride 99 mmol/ L 98-107 normal Not Available [address] [place], [address] 03/24/2024 16:05:07 03/24/20 24 03/24/2024 COMPR EHENS KIRAN METAB OLIC PANEL CO2 14.3 mmol/ L 21.0-3 2.0 low Not Available [address] [place], [address] 03/24/2024 16:05:07 03/24/20 24 03/24/2024 COMPR EHENS KIRAN METAB OLIC PANEL anion gap 23.7 mmol/ L 3-11 high Not Available [address] [place], [address] 03/24/2024 16:05:07 03/24/20 24 03/24/2024 COMPR EHENS KIRAN METAB OLIC PANEL AST 13 U/L 15-37 low Not Available [address] [place], [address] 03/24/2024 16:05:07 03/24/20 24 03/24/2024 COMPR EHENS KIRAN METAB OLIC PANEL ALT 23 U/L 16-63 normal Not Available Debra floyd [address] [place], [address] 03/24/2024 16:05:07 03/24/20 24 03/24/2024 TSH (W/RE F FT4) TSH (w/ref FT4) 1.10 uIU/m L 0.36-3 .74 normal Not Available [address] [place], [address] 03/24/2024 16:05:07 03/24/20 24 03/24/2024 LIPAS E lipase 56 U/L 16-77 normal Not Available Debra floyd [address] [place], [address] 03/24/2024 16:05:08 03/24/20 24 03/24/2024 TROPO ALLA I troponin I < 50 NG/L < or =60 Not Available [address] [place], [address] 03/24/2024 16:05:08 03/24/20 24 03/24/2024 NT-WY OBNP nt-probnp 20 pg/mL <300 NT-pr oBNP value s <300 pg/mL have a 98% negat kiran predi ctive value for exclu ding acute conge stive heart failu re(CH F). NOTE: Supra -phys iolog ic doses of Bioti n(B7) may cause false negat kiran resul ts. Not Available [facility] (Registration ) [address] [place] [address] [place], [address], 03/24/2024 16:05:09 03/24/20 24 03/24/2024 PROTH ROMBI N TIME prothrombin time 11.6 sec 9.1-11 .1 high Not Available [address] [place], [address] 03/24/2024 16:47:19 03/24/20 24 03/24/2024 PROTH ROMBI N TIME INR 1.2 0.9-1. 1 high Recom som d INR thera peuti c range s for orall y admin ister ed drugs are as follo ws: -Lev dard Inten sity 2.0 to 3.0 -High er Inten sity 3.0 to 4.5 Not Available [address] [place], [address] 03/24/2024 16:47:19 03/24/20 24 03/24/2024 PTT ACTIV ATED PTT activated 30.7 sec 23.6-3 2.8 normal Hepar in Thera peuti c Range for PTT = 52-84 secon ds New Hepar in Thera peuti c Range 10/21 Not Available [address] [place], [address] 03/24/2024 16:47:19 03/24/20 24 03/24/2024 COVID /FLU/ RSV PCR source NASOPH ARYNX Not Available [address] [place], [address] 03/24/2024 17:31:27 03/24/20 24 03/24/2024 COVID /FLU/ [...] from the 2019 novel coron a virus (2018nCoV ), influ wen A, influ wen B, [...] histo ry, and epide miolo gical infor matio nMarybeth Testi ng perfo rmed at [facility] (CLIA #[id number]) on the [employer] id GeneX pert. Not Available [address] [place], [address] 03/24/2024 17:31:27 03/24/20 24 03/24/2024 COVID /FLU/ RSV PCR influenza A PCR Negati ve negati ve Not Available [address] [place], [address] 03/24/2024 17:31:27 03/24/20 24 03/24/2024 COVID /FLU/ RSV PCR influenza B PCR Negati ve negati ve Not Available [address] [place], [address] 03/24/2024 17:31:27 03/24/20 24 03/24/2024 COVID /FLU/ RSV PCR RSV PCR Negati ve negati ve Not Available [address] [place], [address] 03/24/2024 17:31:27 03/24/20 24 03/24/2024 COMPR EHENS KIRAN METAB OLIC PANEL calcium 9.2 mg/dL 8.5-10 .1 normal Not Available [address] [place], [address] 03/24/2024 18:05:32 03/24/20 24 03/24/2024 COMPR EHENS KIRAN METAB OLIC PANEL glucose 183 mg/dL 74-106 high Not Available Debra [address] [place], [address] 03/24/2024 18:05:32 03/24/20 24 03/24/2024 COMPR EHENS KIRAN METAB OLIC PANEL BUN 12 mg/dL 7-18 normal Not Available Debra floyd [address] [place], [address] 03/24/2024 18:05:32 03/24/20 24 03/24/2024 COMPR EHENS KIRAN METAB OLIC PANEL creatinine 1.5 mg/dL 0.70-1 .30 high Not Available [address] [place], [address] 03/24/2024 18:05:32 03/24/20 24 03/24/2024 COMPR EHENS [...] young er-ag ed adult s. Not Available [address] [place], [address] 03/24/2024 18:05:32 03/24/20 24 03/24/2024 COMPR EHENS KIRAN METAB OLIC PANEL total protein 7.5 g/dL 6.4-8. 2 normal Not Available [address] [place], [address] 03/24/2024 18:05:32 03/24/20 24 03/24/2024 COMPR EHENS KIRAN METAB OLIC PANEL albumin 3.2 g/dL 3.4-5. 0 low Not Available [address] [place], [address] 03/24/2024 18:05:32 03/24/20 24 03/24/2024 COMPR EHENS KIRAN METAB OLIC PANEL bilirubin, total 0.49 mg/dL 0.2-1. 0 normal Not Available [address] [place], [address] 03/24/2024 18:05:32 03/24/20 24 03/24/2024 COMPR EHENS KIRAN METAB OLIC PANEL alk phos 102 U/L 46-116 normal Not Available [address] [place], [address] 03/24/2024 18:05:32 03/24/20 24 03/24/2024 COMPR EHENS KIRAN METAB OLIC PANEL sodium 139 mmol/ L 136-14 5 normal Not Available [address] [place], [address] 03/24/2024 18:05:32 03/24/20 24 03/24/2024 COMPR EHENS KIRAN METAB OLIC PANEL potassium 3.7 mmol/ L 3.5-5. 1 normal Not Available [address] [place], [address] 03/24/2024 18:05:32 03/24/20 24 03/24/2024 COMPR EHENS KIRAN METAB OLIC PANEL chloride 99 mmol/ L 98-107 normal Not Available [address] [place], [address] 03/24/2024 18:05:32 03/24/20 24 03/24/2024 COMPR EHENS KIRAN METAB OLIC PANEL CO2 15.1 mmol/ L 21.0-3 2.0 low Not Available [address] [place], [address] 03/24/2024 18:05:32 03/24/20 24 03/24/2024 COMPR EHENS KIRAN METAB OLIC PANEL anion gap 24.9 mmol/ L 3-11 high Not Available [address] [place], [address] 03/24/2024 18:05:32 03/24/20 24 03/24/2024 COMPR EHENS KIRAN METAB OLIC PANEL AST 13 U/L 15-37 low Not Available [address] [place], [address] 03/24/2024 18:05:32 03/24/20 24 03/24/2024 COMPR EHENS KIRAN METAB OLIC PANEL ALT 24 U/L 16-63 normal Not Available Debra floyd [address] [place], [address] 03/24/2024 18:05:32 03/24/20 24 03/24/2024 MAGNE SIUM magnesium 2.1 mg/dL 1.8-2. 4 normal Not Available [facility] (Registration ) [address] [place] [address] [place], [address], 03/24/2024 18:05:33 03/24/20 24 03/24/2024 URINA LYSIS color Yellow yellow Not Available Debra floyd [address] [place], [address] 03/24/2024 18:24:33 03/24/20 24 03/24/2024 URINA LYSIS clarity Clear clear Not Available Debra floyd [address] [place], [address] 03/24/2024 18:24:33 03/24/20 24 03/24/2024 URINA LYSIS specific gravity >= 1.030 1.005- 1.025 high Not Available [address] [place], [address] 03/24/2024 18:24:33 03/24/20 24 03/24/2024 URINA LYSIS pH 5.5 5-8 normal Not Available Debra floyd [address] [place], [address] 03/24/2024 18:24:33 03/24/20 24 03/24/2024 URINA LYSIS leukocyte esterase Negati ve negati ve Not Available [address] [place], [address] 03/24/2024 18:24:33 03/24/20 24 03/24/2024 URINA LYSIS nitrite Negati ve negati ve Not Available [address] [place], [address] 03/24/2024 18:24:33 03/24/20 24 03/24/2024 URINA LYSIS protein 100 mg/dL neg-tr elida abnormal Not Available [address] [place], [address] 03/24/2024 18:24:33 03/24/20 24 03/24/2024 URINA LYSIS glucose 500 mg/dL negati ve abnormal Not Available [address] [place], [address] 03/24/2024 18:24:33 03/24/20 24 03/24/2024 URINA LYSIS ketones >=160 mg/dL negati ve abnormal Not Available [address] [place], [address] 03/24/2024 18:24:33 03/24/20 24 03/24/2024 URINA LYSIS urobilinogen 0.2 mg/dL up to 0.2 Not Available [address] [place], [address] 03/24/2024 18:24:33 03/24/20 24 03/24/2024 URINA LYSIS bilirubin Small negati ve abnormal Not Available [address] [place], [address] 03/24/2024 18:24:33 03/24/20 24 03/24/2024 URINA LYSIS blood Negati ve negati ve Not Available [address] [place], [address] 03/24/2024 18:24:33 03/24/20 24 03/24/2024 URINA LYSIS color Yellow yellow Not Available Debra floyd [address] [place], [address] 03/24/2024 18:34:33 03/24/20 24 03/24/2024 URINA LYSIS clarity Clear clear Not Available Debra floyd [address] [place], [address] 03/24/2024 18:34:33 03/24/20 24 03/24/2024 URINA LYSIS specific gravity >= 1.030 1.005- 1.025 high Not Available [address] [place], [address] 03/24/2024 18:34:33 03/24/20 24 03/24/2024 URINA LYSIS pH 5.5 5-8 normal Not Available Debra floyd [address] [place], [address] 03/24/2024 18:34:33 03/24/20 24 03/24/2024 URINA LYSIS leukocyte esterase Negati ve negati ve Not Available [address] [place], [address] 03/24/2024 18:34:33 03/24/20 24 03/24/2024 URINA LYSIS nitrite Negati ve negati ve Not Available [address] [place], [address] 03/24/2024 18:34:33 03/24/20 24 03/24/2024 URINA LYSIS protein 100 mg/dL neg-tr elida abnormal Not Available [address] [place], [address] 03/24/2024 18:34:33 03/24/20 24 03/24/2024 URINA LYSIS glucose 500 mg/dL negati ve abnormal Not Available [address] [place], [address] 03/24/2024 18:34:33 03/24/20 24 03/24/2024 URINA LYSIS ketones >=160 mg/dL negati ve abnormal Not Available [address] [place], [address] 03/24/2024 18:34:33 03/24/20 24 03/24/2024 URINA LYSIS urobilinogen 0.2 mg/dL up to 0.2 Not Available [address] [place], [address] 03/24/2024 18:34:33 03/24/20 24 03/24/2024 URINA LYSIS bilirubin Small negati ve abnormal Not Available [address] [place], [address] 03/24/2024 18:34:33 03/24/20 24 03/24/2024 URINA LYSIS blood Negati ve negati ve Not Available [address] [place], [address] 03/24/2024 18:34:33 03/24/20 24 03/24/2024 MICRO SCOPI C FINDI NGS WBC Negati ve hpf 0-5 Not Available [address] [place], [address] 03/24/2024 18:34:33 03/24/20 24 03/24/2024 MICRO SCOPI C FINDI NGS RBC Negati ve hpf 0-2 Not Available [address] [place], [address] 03/24/2024 18:34:33 03/24/20 24 03/24/2024 MICRO SCOPI C FINDI NGS epithelial cells Rare hpf negati ve Not Available [address] [place], [address] 03/24/2024 18:34:33 03/24/20 24 03/24/2024 MICRO SCOPI C FINDI NGS bacteria Negati ve hpf negati ve Not Available [address] [place], [address] 03/24/2024 18:34:33 03/24/20 24 03/24/2024 MICRO SCOPI C FINDI NGS crystals Negati ve hpf negati ve Not Available [address] [place], [address] 03/24/2024 18:34:33 03/24/20 24 03/24/2024 MICRO SCOPI C FINDI NGS mucus Negati ve negati ve Not Available [address] [place], [address] 03/24/2024 18:34:33 03/24/20 24 03/24/2024 MICRO SCOPI C FINDI NGS casts 3-5 Hyalin e lpf negati ve 0-2 FINE GRANU LAR Not Available [address] [place], [address] 03/24/2024 18:34:33 03/24/20 24 03/24/2024 MICRO SCOPI C FINDI NGS C S indicated? No Not Available [address] [place], [address] 03/24/2024 18:34:33 03/24/20 24 03/24/2024 TROPO ALLA I troponin I < 50 NG/L < or =60 Not Available [address] [place], [address] 03/24/2024 18:53:36 03/24/20 24 03/24/2024 VENOU S BLOOD GAS pH (venous) 7.22 7.31-7 .41 low Not Available [address] [place], [address] 03/24/2024 19:46:50 03/24/20 24 03/24/2024 VENOU S BLOOD GAS pCO2 (venous) 29 mmHg 41-51 low Not Available [facility] [address] [place], [address] 03/24/2024 19:46:50 03/24/20 24 03/24/2024 VENOU S BLOOD GAS pO2 (venous) 51 mmHg Not Available [address] [place], [address] 03/24/2024 19:46:50 03/24/20 24 03/24/2024 VENOU S BLOOD GAS TCO2 (venous) 11 mmol/ L 24-29 low Not Available [address] [place], [address] 03/24/2024 19:46:50 03/24/20 24 03/24/2024 VENOU S BLOOD GAS HCO3 (venous) 12 mmol/ L 23-28 low Not Available [address] [place], [address] 03/24/2024 19:46:50 03/24/20 24 03/24/2024 VENOU S BLOOD GAS BE (venous) -16 mmol/ L -2-3 low Not Available [address] [place], [address] 03/24/2024 19:46:50 03/24/20 24 03/24/2024 VENOU S BLOOD GAS O2 sat (venous) 83 % Not Available [facility] [address] [place], [address] 03/24/2024 19:46:50 03/24/20 24 03/24/2024 BASIC METAB OLIC PANEL calcium 8.0 mg/dL 8.5-10 .1 low Not Available [address] [place], [address] 03/24/2024 19:57:52 03/24/20 24 03/24/2024 BASIC METAB OLIC PANEL glucose 166 mg/dL 74-106 high Not Available Debra floyd [address] [place], [address] 03/24/2024 19:57:52 03/24/20 24 03/24/2024 BASIC METAB OLIC PANEL BUN 11 mg/dL 7-18 normal Not Available Debra floyd [address] [place], [address] 03/24/2024 19:57:52 03/24/20 24 03/24/2024 BASIC METAB OLIC PANEL creatinine 1.3 mg/dL 0.70-1 .30 normal Not Available [address] [place], [address] 03/24/2024 19:57:52 03/24/2003/24/2024 BASIC METAB OLIC PANEL estimated GFR 67.34 [...] young er-ag ed adult s. Not Available [address] [place], [address] 03/24/2024 19:57:52 03/24/2003/24/2024 BASIC METAB OLIC PANEL sodium 138 mmol/ L 136-14 5 normal Not Available [address] [place], [address] 03/24/2024 19:57:52 03/24/20 24 03/24/2024 BASIC METAB OLIC PANEL potassium 3.9 mmol/ L 3.5-5. 1 normal Not Available [address] [place], [address] 03/24/2024 19:57:52 03/24/20 24 03/24/2024 BASIC METAB OLIC PANEL chloride 105 mmol/ L 98-107 normal Not Available [address] [place], [address] 03/24/2024 19:57:52 03/24/2003/24/2024 BASIC METAB OLIC PANEL CO2 13.9 mmol/ L 21.0-3 2.0 low Not Available [address] [place], [address] 03/24/2024 19:57:52 03/24/2003/24/2024 BASIC METAB OLIC PANEL anion gap 19.1 mmol/ L 3-11 high Not Available [address] [place], [address] 03/24/2024 19:57:52 03/24/2003/25/2024 BLOOD CULTU RE ( AGE => 9 YRS) blood culture ( age => 9 yrs) Blood Cultu re ( Age => 9 Yrs) NO GROWT H 24 HOURS Not Available [address] [place], [address] 03/25/2024 17:49:36 03/24/2003/25/2024 BLOOD CULTU RE ( AGE => 9 YRS) blood culture ( age => 9 yrs) Blood Cultu re ( Age => 9 Yrs) NO GROWT H 24 HOURS Not Available [address] [place], [address] 03/25/2024 19:11:42 03/24/2003/26/2024 BLOOD CULTU RE ( AGE => 9 YRS) blood culture ( age => 9 yrs) Blood Cultu re ( Age => 9 Yrs) NO GROWT H 48 HOURS Not Available [address] [place], [address] 03/26/2024 17:51:46 03/24/2003/26/2024 BLOOD CULTU RE ( AGE => 9 YRS) blood culture ( age => 9 yrs) Blood Cultu re ( Age => 9 Yrs) NO GROWT H 48 HOURS Not Available [address] [place], [address] 03/26/2024 19:11:56 07/10/20 24 03/27/2024 BLOOD CULTU RE ( AGE => 9 YRS) blood culture ( age => 9 yrs) Blood Cultu re ( Age => 9 Yrs) NO GROWT H 72 HOURS Not Available [address] [place], [address] 03/27/2024 17:53:04 03/24/20 24 03/27/2024 BLOOD CULTU RE ( AGE => 9 YRS) blood culture ( age => 9 yrs) Blood Cultu re ( Age => 9 Yrs) NO GROWT H 72 HOURS Not Available [address] [place], [address] 03/27/2024 19:12:05 03/24/20 24 03/28/2024 BLOOD CULTU RE ( AGE => 9 YRS) blood culture ( age => 9 yrs) Blood Cultu re ( Age => 9 Yrs) NO GROWT H 96 HOURS Not Available [address] [place], [address] 03/28/2024 17:52:07 03/24/20 24 03/28/2024 BLOOD CULTU RE ( AGE => 9 YRS) blood culture ( age => 9 yrs) Blood Cultu re ( Age => 9 Yrs) NO GROWT H 96 HOURS Not Available [address] [place], [address] 03/28/2024 19:12:13 03/24/20 24 03/29/2024 BLOOD CULTU RE ( AGE => 9 YRS) blood culture ( age => 9 yrs) Blood Cultu re ( Age => 9 Yrs) NO GROWT H 120 HOURS Not Available [address] [place], [address] 03/29/2024 17:52:01 03/24/20 24 03/29/2024 BLOOD CULTU RE ( AGE => 9 YRS) blood culture ( age => 9 yrs) Blood Cultu re ( Age => 9 Yrs) NO GROWT H 120 HOURS Not Available [address] [place], [address] 03/29/2024 19:10:16 03/24/20 24 03/24/2024 hemog lobin (Hb), sudha rstic k, blood HGB 15 g/dL Not Available [address], [address], 03/24/2024 13:20:25 03/24/20 24 03/24/2024 hemog lobin (Hb), sudha rstic k, blood HGB 15 g/dL Not Available [address], [address], 03/24/2024 12:40:22 04/23/20 24 04/23/2024 hemog lobin A1C, shreyae rstic k hemoglobin A1C 8.0 % <5.7 Not Available [address], [address], 04/23/2024 11:48:33 05/07/20 24 05/07/2024 COMPL ETE BLOOD COUNT W/DIF F WBC 7.39 10_3/ uL 4.4-10 .8 normal Not Available [address] [place], [address] 05/07/2024 09:55:15 05/07/20 24 05/07/2024 COMPL ETE BLOOD COUNT W/DIF F RBC 5.34 10_6/ uL 4.36-5 .78 normal Not Available [address] [place], [address] 05/07/2024 09:55:15 05/07/20 24 05/07/2024 COMPL ETE BLOOD COUNT W/DIF F HGB 12.8 g/dL 13.5-1 7.5 low Not Available [address] [place], [address] 05/07/2024 09:55:15 05/07/20 24 05/07/2024 COMPL ETE BLOOD COUNT W/DIF F HCT 41.3 % 40.0-5 0.0 normal Not Available [address] [place], [address] 05/07/2024 09:55:15 05/07/20 24 05/07/2024 COMPL ETE BLOOD COUNT W/DIF F MCV 77 fL 80-95 low Not Available [address] [place], [address] 05/07/2024 09:55:15 05/07/20 24 05/07/2024 COMPL ETE BLOOD COUNT W/DIF F MCH 24.0 pg 27.0-3 3.0 low Not Available [address] [place], [address] 05/07/2024 09:55:15 05/07/20 24 05/07/2024 COMPL ETE BLOOD COUNT W/DIF F MCHC 31.0 % 32.0-3 6.0 low Not Available [address] [place], [address] 05/07/2024 09:55:15 05/07/20 24 05/07/2024 COMPL ETE BLOOD COUNT W/DIF F RDW 16.8 % 11.8-1 4.1 high Not Available [address] [place], [address] 05/07/2024 09:55:15 05/07/20 24 05/07/2024 COMPL ETE BLOOD COUNT W/DIF F platelet count 192 10_3/ uL 130-40 0 normal Not Available [address] [place], [address] 05/07/2024 09:55:15 05/07/20 24 05/07/2024 COMPL ETE BLOOD COUNT W/DIF F MPV 10.7 fL 8.0-11 .0 normal Not Available [address] [place], [address] 05/07/2024 09:55:15 05/07/20 24 05/07/2024 COMPL ETE BLOOD COUNT W/DIF F neutrophils % 72.2 % Not Available [facility] [address] [place], [address] 05/07/2024 09:55:15 05/07/20 24 05/07/2024 COMPL ETE BLOOD COUNT W/DIF F lymphocytes % 18.8 % Not Available [facility] [address] [place], [address] 05/07/2024 09:55:15 05/07/20 24 05/07/2024 COMPL ETE BLOOD COUNT W/DIF F monocytes % 4.1 % Not Available [address] [place], [address] 05/07/2024 09:55:15 05/07/20 24 05/07/2024 COMPL ETE BLOOD COUNT W/DIF F eosinophils % 3.9 % Not Available [address] [place], [address] 05/07/2024 09:55:15 05/07/20 24 05/07/2024 COMPL ETE BLOOD COUNT W/DIF F basophils % 0.7 % Not Available [address] [place], [address] 05/07/2024 09:55:15 05/07/20 24 05/07/2024 COMPL ETE BLOOD COUNT W/DIF F immature grans % 0.3 % Not Available [address] [place], [address] 05/07/2024 09:55:15 05/07/20 24 05/07/2024 COMPL ETE BLOOD COUNT W/DIF F nucleated RBC 0.0 % 0.0-0. 3 normal Not Available [address] [place], [address] 05/07/2024 09:55:15 05/07/20 24 05/07/2024 COMPL ETE BLOOD COUNT W/DIF F absolute neutrophil count 5.34 10_3/ uL 1.2-6. 7 normal Not Available [address] [place], [address] 05/07/2024 09:55:15 05/07/20 24 05/07/2024 COMPL ETE BLOOD COUNT W/DIF F absolute lymphocyte count 1.39 10_3/ uL 1.2-3. 4 normal Not Available [address] [place], [address] 05/07/2024 09:55:15 05/07/20 24 05/07/2024 COMPL ETE BLOOD COUNT W/DIF F absolute monocyte count 0.30 10_3/ uL 0.1-0. 8 normal Not Available [address] [place], [address] 05/07/2024 09:55:15 05/07/20 24 05/07/2024 COMPL ETE BLOOD COUNT W/DIF F absolute eosinophil count 0.29 10_3/ uL 0.0-0. 7 normal Not Available [address] [place], [address] 05/07/2024 09:55:15 05/07/20 24 05/07/2024 COMPL ETE BLOOD COUNT W/DIF F absolute basophil count 0.05 10_3/ uL 0.0-0. 2 normal Not Available [address] [place], [address] 05/07/2024 09:55:15 05/07/20 24 05/07/2024 COMPR EHENS KIRAN METAB OLIC PANEL calcium 8.8 mg/dL 8.5-10 .1 normal Not Available [address] [place], [address] 05/07/2024 10:13:24 05/07/20 24 05/07/2024 COMPR EHENS KIRAN METAB OLIC PANEL glucose 258 mg/dL 74-106 high Not Available Debra floyd [address] [place], [address] 05/07/2024 10:13:24 05/07/20 24 05/07/2024 COMPR EHENS KIRAN METAB OLIC PANEL BUN 6 mg/dL 7-18 low Not Available Debra floyd [address] [place], [address] 05/07/2024 10:13:24 05/07/20 24 05/07/2024 COMPR EHENS KIRAN METAB OLIC PANEL creatinine 0.9 mg/dL 0.70-1 .30 normal Not Available [address] [place], [address] 05/07/2024 10:13:24 05/07/20 24 05/07/2024 COMPR EHENS [...] young er-ag ed adult s. Not Available [address] [place], [address] 05/07/2024 10:13:24 05/07/20 24 05/07/2024 COMPR EHENS KIRAN METAB OLIC PANEL total protein 6.6 g/dL 6.4-8. 2 normal Not Available [address] [place], [address] 05/07/2024 10:13:24 05/07/20 24 05/07/2024 COMPR EHENS KIRAN METAB OLIC PANEL albumin 2.8 g/dL 3.4-5. 0 low Not Available [address] [place], [address] 05/07/2024 10:13:24 05/07/20 24 05/07/2024 COMPR EHENS KIRAN METAB OLIC PANEL bilirubin, total 0.31 mg/dL 0.2-1. 0 normal Not Available [address] [place], [address] 05/07/2024 10:13:24 05/07/20 24 05/07/2024 COMPR EHENS KIRAN METAB OLIC PANEL alk phos 77 U/L 46-116 normal Not Available [address] [place], [address] 05/07/2024 10:13:24 05/07/20 24 05/07/2024 COMPR EHENS KIRAN METAB OLIC PANEL sodium 137 mmol/ L 136-14 5 normal Not Available [address] [place], [address] 05/07/2024 10:13:24 05/07/20 24 05/07/2024 COMPR EHENS KIRAN METAB OLIC PANEL potassium 4.1 mmol/ L 3.5-5. 1 normal Not Available [address] [place], [address] 05/07/2024 10:13:24 05/07/20 24 05/07/2024 COMPR EHENS KIRAN METAB OLIC PANEL chloride 101 mmol/ L 98-107 normal Not Available [address] [place], [address] 05/07/2024 10:13:24 05/07/20 24 05/07/2024 COMPR EHENS KIRAN METAB OLIC PANEL CO2 29.6 mmol/ L 21.0-3 2.0 normal Not Available [address] [place], [address] 05/07/2024 10:13:24 05/07/20 24 05/07/2024 COMPR EHENS KIRAN METAB OLIC PANEL anion gap 6.4 mmol/ L 3-11 normal Not Available [address] [place], [address] 05/07/2024 10:13:24 05/07/20 24 05/07/2024 COMPR EHENS KIRAN METAB OLIC PANEL AST 18 U/L 15-37 normal Not Available Debra floyd [address] [place], [address] 05/07/2024 10:13:24 05/07/20 24 05/07/2024 COMPR EHENS KIRAN METAB OLIC PANEL ALT 19 U/L 16-63 normal Not Available Debra floyd [address] [place], [address] 05/07/2024 10:13:24 01/26/20 24 01/26/2024 MRI imagi ng repor t Patisara t Name: Charles Nick Unit #: [id number] Loc: DI Orderi ng Provid er: Austin Torres DO Accoun t #: [id number] Status : REG CLI Primar y [...] is a 5 mm nodule on the aircraft servicer ior wall of a loop of small [...] ma. 2. 5 mm nodule along the aircraft servicer ior wall of a loop of small [...] Dictat ed By: Juan Delacruz M.D. 1507 150 Transc ribed By: Juan Delacruz 1507 This is privil eged, confid ential inform ation intend ed only for the provid er named. Any use or distri bution by any person other than this provid er is strict ly prohib ited. If you receiv e this report in error, please notify us immedi ately at [phone] and return the origin al report to us at the addres s above. Thank- you. [facility] [address] [place], [address] 01/26/2024 15:35:36 01/26/20 24 01/26/2024 MRI imagi ng repor t Patien t Name: Charles Nick Unit #: [id number] Loc: DI Orderi ng Provid er: Austin Torres DO Accoun t #: [id number] Status : REG CLI Primar y [...] measur ing 1.5 cm in length . ([place] [address], image 19). Urinar y bladde r: Unrema [...] at the addres s above. Thank- you. [facility] [address], [place], [address] 02/02/2024 18:04:55 02/02/20 24 01/27/2024 PET, skull base to mid-t high No observ ation record ed. ОЛЬГА Not Available 2023 15:50:24 02/26/20 24 02/26/2024 CT imagi ng repor t Patien t Name: Charles Nick Unit #: [id number] Loc: DI Orderi ng Provid er: Quang Hernandez t #: [id number] Status : REG CLI Primar y [...] indica tion); or iterat kiran recons tructi on612-0 002: Total DLP = 0.00 mGy-cm Ordere d By: Quang Hernandez CC: WALESKAYoel [facility] ------ ------ ------ ------ [...] at the addres s above. Thank- you. [facility] [address], [place], [address] 02/26/2024 13:16:53 03/24/20 24 03/24/2024 CT imagi ng barrett holland Name: Charles Nick Unit #: [id number] Loc: ER Orderi ng Provid er: Rayo Ramos M.D. Accoun t #: [id number] Status : REG ER Primar y [...] l air seen in this area. 5. [facility] gs were discus sed with Dr. Love talbot at 5:07 p.m. on 024. RADIAT ION DOSE DELIVE RED: 2,020. 19mGy. cm Total DLP DATA REPOSI TORY: All CT scans at this facili ty are submit dotty to the [facility] al Radiol ogy Data Regist ry (NRDR) Dose Index Regist ry (DIR) with the [place] meg ferro of Radiol ogy (ACR). RADIAT ION OPTIMI ZATION : All CT scans at this [facility] use at least one of these dose optimi zation techni ques: automa dotty exposu re contro l; mA and/or kV adjust ment per patien t size (inclu shaw target ed exams where dose is matche d to clinic al indica tion); or iterat kiran recons tructi on. 028: Total DLP = [...] at the addres s above. Thank- you. [facility] [address], [place], [address] 03/25/2024 04:38:41 03/26/20 24 03/25/2024 elect gerardo olvera am EKG PATIEN T NAME: Charles Nick UNIT #: [id number] ORDERI NG PROVID ER: Kenny Garcia DO ACCOUN T #: [id number] PRIMAR Y CARE PROVID ER: Alexa CHAMBERLAIN APRN DATE/T JOHN OF SERVIC E: 1507 : 1975 FOR[facility]LY [facility] LOCATI ON: ER ------ ------ --- APPROV ED REPORT ------ ------ -- Exam: Restin g ECG Reason for Exam: Maria Eugenia holland Locati on: E HR:112 bpm ECG Measur ements Heart Rate 112 [address] 152 P 54 QRSd 103 QRS 70 [...] E-Sign Time: 000 ------ ------ --- ADDEND APPRO ED REPORT ------ ------ -- Exam: Restin g ECG Reason for Exam: Maria Eugenia holland Locati on: E HR:112 bpm ECG Measur ements Heart Rate [address] 152 P 54 QRSd 103 QRS 70 QT 371 T -52 QTc 507 Conclu alke Sinus tachyc ardia. ..rate > 99 Nonspe [...] signed by: [id number] Cosign ed by: [email or web address] [facility] [address] [place], [address] 03/26/2024 08:57:17 Result Notes None recorded. Problems Name Problem SNOMED Code Status Onset Date Resolution Date Notes Provider Name and Address Organization Details Recorded Time [facility] 36529959 Active 2006 Alie Mervat [facility]. 4 13:29:59 Nephroti c syndrome 44994999 Completed 200603/03/2007 Not Available [facility] 3 04:42:43 Chronic kidney disease stage 3 412114928 Active [address] [facility] 4 13:29:40 Obstruct kiran sleep apnea syndrome 15255771 [facility] 4 13:30:42 Anxiety 54946667 Active 2014 [facility] 4 13:29:15 Type 2 diabetes mellitus without complica tion 751797964 Active [address] [facility] 4 13:30:59 Obesity 216259638 Active 2015 [facility] 4 13:30:35 Edema 557043565 Active [address] [facility] 4 13:29:50 Allergy to food 478080070 [facility] 4 13:29:10 Adult health examinat ion [facility] 4 13:29:06 Erectile dysfunct ion 084339670 Active [address] [facility] 4 13:29:54 Neuropat hy due to type 2 diabetes mellitus 60977895296 9106 Active 2020 [facility] 4 13:30:25 Screenin g for malignan t neoplasm of colon Active 2020 [facility] 4 13:30:50 Digestiv e system finding 715950813 Active 2021 [facility] 4 13:29:44 Vitamin B deficien cy 14418744 Active 2021 [facility] 4 13:31:03 Pre-surg mirta evaluati on Completed 202106/01/2022 Problem Code: Z01.818; Problem Code Type: ICD-10; Not Available [facility] 3 04:42:45 Bilatera l hearing loss 96881684 Active 2021 [facility] 4 13:29:19 Venereal disease screenin g Completed 202108/24/2022 Problem Code: Z11.3; Problem Code Type: ICD-10; Not Available [facility] 3 04:42:45 Hypomagn esemia 722819719 Active 2022 [facility] 4 13:30:11 Secondar y polycyth emia 49559467 Active 2022 [facility] 4 13:30:54 Kidney stone 43428220 Active 2022 [facility] 4 13:30:16 History of polyp of colon 328309693 Active 2022 Alie dorsey, [facility]. 4 13:30:07 Disorder of nasal sinus 5220664 Active 2022 OLGA MARCUS, TECHNICAL SPEC [address], [place], [address] , [facility], [facility] 4 08:08:16 Nonalcoh olic steatohe patitis 287452003 Active [address] 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 4 13:30:03 Hypergly cemia due to type 2 diabetes mellitus 88630958580 9109 Completed 201608/15/2017 Problem Code: E11.65; Problem Code Type: ICD-10; Not Available [facility] 3 04:42:47 Phimosis 881080825 Completed 201704/29/2022 Problem Code: N47.1; Problem Code Type: ICD-10; Not Available [facility] 3 04:42:47 Snoring 18946871 Completed 201303/01/2016 Not Available [facility] 3 04:42:48 Imaging of abdomen abnormal 753867873 Completed 202212/20/2022 Problem Code: R93.5; Problem Code Type: ICD-10; Not Available [facility] 3 04:42:48 Adult health examinat ion Completed 201403/01/2016 Problem Code: Z00.00; Problem Code Type: ICD-10; [facility] 4 13:29:06 Obesity 136329789 Completed 200606/11/2023 [facility] 4 13:30:35 Fatigue 64017310 Completed 201303/01/2016 Not Available [facility] 3 04:42:48 Acute upper respirat ory infectio n 55931525 Completed 202004/29/2022 Problem Code: J06.9; Problem Code Type: ICD-10; Not Available [facility] 3 04:42:49 Nausea 079348151 Completed 202212/20/2022 Problem Code: R11.0; Problem Code Type: ICD-10; Not Available [facility] 3 04:42:49 Type 2 diabetes mellitus without complica tion 586126182 Completed 202201/10/2023 Problem Code: E11.9; Problem Code Type: ICD-10; [facility] 4 13:30:59 Dyssomni a 37126259 Completed 201303/01/2016 Problem Code: 780.59; Problem Code Type: ICD-9; Not Available [facility] 3 04:42:49 Acute bronchit is 60056084 Completed 201708/09/2019 Problem Code: J20.9; Problem Code Type: ICD-10; Not Available [facility] 3 04:42:49 Nausea and vomiting 46823356 Completed 202107/25/2022 Problem Code: R11.2; Problem Code Type: ICD-10; Not Available [facility] 3 04:42:50 Sleep apnea 73597198 Completed 201306/11/2023 Problem Code: 780.57; Problem Code Type: ICD-9; Not Available [facility] 3 04:42:50 Disturba nce of consciou sness 1217981 Completed 201303/01/2016 Problem Code: 780.09; Problem Code Type: ICD-9; Not Available [facility] 3 04:42:50 Acute sinusiti s 60960086 Completed 202004/10/2021 Problem Code: J01.90; Problem Code Type: ICD-10; Not Available [facility] 3 04:42:50 Balaniti s 53003292 Completed 201608/15/2017 Problem Code: N48.1; Problem Code Type: ICD-10; Not Available [facility] 3 04:42:51 Sleep disorder 35135236 Completed 201303/01/2016 Problem Code: 780.50; Problem Code Type: ICD-9; Not Available [facility] 3 04:42:51 Nodule of subcutan eous tissue of left foot 69903572331 698421 Active 2023 OLGA MARCUS, YOCASTA [address], [place], [address] , [facility]. 4 08:13:06 Benign prostati c hyperpla mercy 435411907 Active 2023 Alie dorsey [facility]. 4 13:31:06 Headache 96830118 Active 2023 OLGA MARCUS APRN [address], [place], [address] , [facility]. 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 4 09:14:45 Cramp in lower limb 637069870 Active 2023 OLGA MARCUS APRN [address], [place], [address] , [facility]. 4 09:15:29 Pain in right hip joint 96921650402 9102 Active 2023 OLGA MARCUS APRN [address], [place], [address] , [facility]. 4 09:19:09 Prolonge d QT interval 701559418 Active 2023 OLGA MARCUS APRN [address], [place], [address] , [facility]. 4 09:53:55 Notes:*Problem Name: Duodena l polyp *Problem Status: active *Comments: *Problem Code: K31.7 *Problem Code Type: ICD-10 *Note Date: 2022 Problem Notes Documentation Provider Name and Address Organization Details Recorded Time Custodian Supervisor Consult Note : Po diatry Office Visit PATIENT NAME: Charles Nick UNIT #: [id number] ADMITTING PROVIDER: Alejandra Schreiber DPM [address] PRIMARY [...] Detail Total time on date of encounter, (rnbd-uk-wazf and non ppdn-eo-wkic) (minutes): 30 Time was spent: reviewing prior notes and diagnostics, providing direct patient care, ordering diagnostics and/or referrals, documenting today's visit, updating the EMR, coordinating care and other HPI 3 week wound care f/u. 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 He reports recently being hospitalized at [facility] (x1wk) for DKA. Exam Cardio Other: DP/ [...] below. Neuro Other: Protective sensation absent via [place] [employer] 5.07 monofilament. Negative tinel???s sign. Muscle [...] foot, has bandaid on it today with Janey. Does report he has Mepilex available and has been using this as well. 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 He reports recently being hospitalized at [facility] (x1wk) for DKA. He reports he is not taking any pain meds which are listed on his [facility] med list today. He does have a [...] 20 mg PO BID 04/06/24 04/06/24 History leiodt-oogjgiyk-dinnmax 2 cap PO TID 04/06/24 04/06/24 History [...] Nevus D22.9 CPT Codes Debride Skin/Tissue - 59941 (25743) cc: - Dictated by: Alejandra Schreiber DPM Dictated: 04/06/24 Time: 1425 Date: 04/06/241521 Date: Date: Transcribed Date: 04/06/24 Transcribed Time: 1425 By: XENIA This is privileged, confidential information, intended only for the provider named. Any use or distribution by any person other than this provider is strictly prohibited. If you receive this report in error, please notify us immediately at [phone] and return the original report to us at the address above. Thank you. [address], [place], [address], [facility] 04/13/2024 09:08:25 Procedures Surgical History Date Name Laterality Status Provider Name and Address Organization Details Recorded Time 4 IV insert completed Kinsey Oliveira RN [facility] 03/24/2024 15:58:08 endoscopy completed ARNALDO GOMEZ CMA [facility], [facility] 01/02/2024 15:34:11 Imaging Results Imaging Date Name Status LastModified by Organization Details LastModified Time 01/26/2024 MRI imaging report completed [address] [facility] [place], [address] 01/26/2024 15:35:36 01/26/2024 MRI imaging report completed [address] [facility] [place], [address] 02/02/2024 18:04:55 01/27/2024 PET, skull base to mid-thigh completed ОЛЬГА Information not available 02/06/2024 15:50:24 02/26/2024 CT imaging report completed [address] [place], [address] 02/26/2024 13:16:53 03/24/2024 CT imaging report completed [address] [place], [address] 03/25/2024 04:38:41 03/25/2024 electrocardiogram completed [address] [place], [address] 03/26/2024 08:57:17 Procedure Notes None recorded. Medical Equipment None Reported. Allergies Allergen ID Allergen Name Allergen Category Reaction Reaction Severity Criticality Documentation Date Start Date Code Code System Note Provider Name and Address Organization Details Recorded Time 50547 Medicinal product containin g penicilli n and acting as antibacte rial agent (product) medicatio n other mild Not available 11/29/20232006 23567 05 SNOMED Swell ing of throa amalia Loern [facility] 4 13:58:03 Medications Name Sig Start [...] by oral route as needed. active Per [facility] d/c summary 04/01/24 Not Available Not Available [...] 150 mg capsule 05/27 completed Stopped per [facility] d/c summary 04/01/24 Not Available Not Available [...] EVERY DAY NEEDED 05/27 completed Stopped per [facility] d/c summary 04/01/24 Not Available Not Available Not Available tamsulosi n 0.4 mg capsule TAKE ONE CAPSULE BY MOUTH AT BEDTIME 07/01 /2024 completed Not Available Not Available Not Available [...] a day by oral route. 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 18 g 96 % 96 % 86 /min 148 mm[Hg] 96 mm[Hg] ARNALDO GOMEZ CMA [facility]. 4 09:06:22 Date Recorded Systolic blood pressure Diastolic blood pressure Provider Name and Address Organization Details Last Updated DateTime 02/23/2024 132 mm[Hg] 88 mm[Hg] OLGA MARCUS APRN [address], [place], [address], [facility] 02/23/2024 09:24:02 Date Recorded Body height Body mass index (BMI) Body weight Oxygen saturation Oxygen saturation in Arterial blood by Pulse oximetry Heart rate Systolic blood pressure Diastolic blood pressure Provider Name and Address Organization Details Last Updated DateTime 4 186.69 cm 34.4 kg/m2 925422. 39 g 97 % 97 % 116 /min 128 mm[Hg] 66 mm[Hg] MELANIE MEIER MA [facility] 4 15:00:31 Date Recorded Body height Heart [...] mm[Hg] 84 mm[Hg] 62 mm[Hg] STEPHANI JOHNSON [facility] 4 13:16:26 Date Recorded Body height Body mass index (BMI) Body weight Oxygen saturation Oxygen saturation in Arterial blood by Pulse oximetry Heart rate Body temperature Systolic blood pressure Diastolic blood pressure Provider Name and Address Organization Details Last Updated DateTime 4 186.69 cm 34.2 kg/m2 062390. 79 g 97 % 97 % 81 /min 97.89 [degF] 128 mm[Hg] 94 mm[Hg] ARNALDO GOMEZ [facility] 4 11:42:08 Date Recorded Systolic blood pressure Diastolic blood pressure Provider Name and Address Organization Details Last Updated DateTime 04/23/2024 122 mm[Hg] 90 mm[Hg] OLGA MARCUS APRN [address], [place], [address], [facility] 04/23/2024 12:17:35 Date Recorded Body height Body mass index (BMI) Body weight Body temperature Oxygen saturation Oxygen saturation in Arterial blood by Pulse oximetry Heart rate Systolic blood pressure Diastolic blood pressure Provider Name and Address Organization Details Last Updated DateTime 4 186.69 cm 34.4 kg/m2 820362. 19 g 97 [degF] 97 % 97 % 102 /min 140 mm[Hg] 90 mm[Hg] ARNALDO GOMEZ CMA [facility] 13:44:52 Social History Question Answer Notes LastModified by Organizat ion Details LastModified Time Tobacco Smoking Status Never Smoker ARNADLO GOMEZ CMA null, [facility] 12/05/2023 08:46:50 What Was The Date Of [...] preservative free, adsorbed 04/22/2017 completed Not Available [facility] 07/25/2023 06:32:54 Tdap 02/27/2007 completed Not Available [facility] 06:32:54 Influenza, split virus, quadrivalent, PF 09/21/2020 completed Not Available [facility] 07/25/2023 06:32:54 Influenza, split virus, quadrivalent, PF 06/19/2021 completed Not Available [facility] 07/25/2023 06:32:54 Influenza, split virus, quadrivalent, PF 08/02/2019 completed Not Available [facility] 07/25/2023 06:32:54 COVID-19 vaccine, vector-nr, rS-Ad26, PF, 0.5 mL 01/19/2021 completed Not Available [facility] 07/25/2023 06:32:54 pneumococcal polysaccharide PPV23 09/21/2020 completed Not Available [facility] 2022 06:32:54 influenza, unspecified formulation 07/05/2016 completed Not Available [facility] 07/25/2023 06:32:54 influenza, unspecified formulation 07/16/2017 completed Not Available [facility] 07/25/2023 06:32:54 Influenza, split virus, quadrivalent, PF 06/17/2023 completed Not Available [facility] 09/26/2023 05:33:26 Past Encounters Encounter ID Performer Location Encounter Start Date Encounter Closed Date Diagnosis/Indication Diagnosis SNOMED-CT Code Diagnosis ICD10 Code [id number] OLGALUCINDA MARCUS[address] [address] 09/23/2023 08:00:11 09/23/2023 08:21:23 Nodule of subcutaneous tissue of left foot 0999037148 6661566 R22.42 Obesity 751133311 E66.9 [id number] [address]US[address] [address] 10/23/2023 11:49:56 10/23/2023 13:02:45 Obstructive sleep apnea syndrome 40354996 G47.33 Erectile dysfunction 860 438306 F52.21 Disorder o f nasal sinus 9101810 J34.9 Essential hypertension 55994964 I10 N18.9 R60.9 Anxiety 46721395 F41.9 F32.A Z73.3 Secondary polycythemia 93458108 D75.1 Nonalcohol ic steatohepatitis 593966985 K75.81 Digestive system finding 575513009 R19.8 Type 2 makayla betes mellitus without complication 141198776 E11.9 E11.40 Nephrotic syndrome, diffuse membranous glomerulonephritis 019004077 N04.20 Body mass index 30+ - obesity 834536149 Z68.36 Nodule of subcutaneous tissue of left foot 6227880876 6117625 R22.42 Benign pro static hyperplasia 603332139 N40.0 [id number] [address] JOH[address]ON[address] [address] 11/24/2023 09:55:54 11/24/2023 10:08:02 Essential hypertension 03059300 I10 N18.9 R60.9 [id number] OLGA MARCUS [address] [address] 12/05/2023 08:36:54 12/05/2023 10:58:03 Type 2 diabetes mellitus without complication 732997396 E11.9 E11.40 Essential hypertension 81643370 I10 N18.9 R60.9 Anxiety 92748567 F41.9 F32.A Z73.3 Obstructiv e sleep apnea syndrome 33927203 G47.33 Body mass index 30+ - obesity 989477450 Z68.36 Digestive system finding 144118711 R19.8 Nonalcohol ic steatohepatitis 477039579 K75.81 Secondary polycythemia 06260362 D75.1 Disorder o f nasal sinus 2832477 J34.9 Nephrotic syndrome, diffuse membranous glomerulonephritis 524842173 N04.20 Nodule of subcutaneous tissue of left foot 3510667660 9448488 R22.42 Erectile dysfunction 860 124316 F52.21 Benign pro static hyperplasia 686101465 N40.0 Chest pain 86386351 R07. 9 Headache 87361120 R51.9 Gynecomastia 9430283 N62 [id number] STEPHANI JOHNSON [address] [address] 02/02/2024 10:48:13 02/02/2024 11:14:25 Chronic kidney disease stage 3 122555615 N18.30 Essential hypertension 60073323 I10 N18.9 R60.9 Type 2 makayla betes mellitus without complication 081225301 E11.9 E11.40 [id number] OLGA MARCUS [address] [address] 02/23/2024 08:58:06 02/23/2024 09:59:23 Type 2 diabetes mellitus without complication 369729723 E11.9 E11.40 Essential hypertension 31851208 I10 N18.9 R60.9 Anxiety 09437684 F41.9 F32.A Z73.3 Obstructiv e sleep apnea syndrome 00482734 G47.33 Body mass index 30+ - obesity 624107608 Z68.36 Digestive system finding 994503055 R19.8 Nonalcohol ic steatohepatitis 002254975 K75.81 Secondary polycythemia 22809146 D75.1 Disorder o f nasal sinus 7951412 J34.9 Nephrotic syndrome, diffuse membranous glomerulonephritis 242024348 N04.20 Nodule of subcutaneous tissue of left foot 8675930617 7380717 R22.42 Erectile dysfunction 860 063467 F52.21 Benign pro static hyperplasia 753786756 N40.0 Carcinoma of duodenum 25 0773036 C17.0 Pain of le ft shoulder joint 4184186079 0689843 M25.512 Cramp in lower limb 4499 10930 R25.2 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 9510006705 100 E11.621 Pain in ri ght hip joint 1498291951 80655 M25.568 [id number] GURJIT WILLIS MD [address] [address] 03/15/2024 14:48:33 03/15/2024 15:46:20 Carcinoma of duodenum 680797282 C17.0 [id number] ADA HAMM MD [address] [address] 03/24/2024 13:12:40 03/24/2024 14:17:10 Tachycardia 3378142 R00.0 Lethargy 005215129 R53.8 3 Low blood pressure 70244 003 I95.9 [id number] OLGA MARCUS APRN [address] [address] 04/23/2024 11:09:47 04/23/2024 12:19:30 Type 2 diabetes mellitus without complication 250986874 E11.9 E11.40 Essential hypertension 51807437 I10 N18.9 R60.9 Anxiety 62074440 F41.9 F32.A Z73.3 Obstructiv e sleep apnea syndrome 38120639 G47.33 Body mass index 30+ - obesity 054700119 Z68.36 Digestive system finding 032486176 R19.8 Nonalcohol ic steatohepatitis 960197991 K75.81 Secondary polycythemia 40900447 D75.1 Disorder o f nasal sinus 2511086 J34.9 Nephrotic syndrome, diffuse membranous glomerulonephritis 824246304 N04.20 Nodule of subcutaneous tissue of left foot 0320252309 4748167 R22.42 Benign pro static hyperplasia 329329513 N40.0 Carcinoma of duodenum 25 1363581 C17.0 Pain of le ft shoulder joint 9122671180 8356293 M25.512 Cramp in lower limb 4499 40350 R25.2 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 4285481433 100 E11.621 Pain in ri ght hip joint 4723790315 78550 M25.551 Prolonged QT interval 11 I45.81 Health Concerns Section Related Observation LastModified by Organization Detai ls LastModified Time None Recorded Concern Status LastModified by Organization Details LastModified Time None Recorded Advance Directives Directive None Recorded Payers Encounter Date Sequence Insurance Name Policy Number Policy Loo Covered Member ID Loo Member ID Guarantor Name 02/23/2024 1 UMR [id number] Charles Diallo'Lakshmi [id number] Charles Nick 03/15/2024 1 UMR [id number] Charles Hernandez [id number] Charles Nick 03/24/2024 1 UMR [id number] Charles Diallo'Lonkasie [id number] Charles Nick 04/23/2024 1 UMR [id number] Charles Diallo'Lonkasie [id number] Charles Nick Notes Date Note Type Note [...] why he needs the surgery. OLGA MARCUS, TECHNICAL SPEC [address], [place], [address], [facility]. 02/23/2024 12:08:46 03/15/2024 text/html HPI Notes: Sandy mortensen here for some hospital discharge follow-up. 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 [...] range GURJIT WILLIS MD [address], [place], [address], [facility]. 03/17/2024 10:23:16 03/24/2024 text/html HPI Notes: [...] lot. ADA HAMM MD [address], [place], [address], [facility]. 03/24/2024 16:04:59 04/23/2024 text/html HPI Notes: [...] hour days. Will gladly update and edit [facility] paperwork according to how he feels. Mediport next week, then chemo late next week. Nervous/ anxious about starting chemo. OLGA MARCUS APRN [address], [place], [address], [facility]. 04/23/2024 15:51:08
--- OUTSIDE RECORDS SUMMARY | 2024-05-27 17:55 | XMS_ITS | Continuity of Care Document ---
Author Organization [place] - [facility] Address [address] [place] [address] Assessment Encounter Date Assessment Date Assessment LastModified by Organization Details LastModified Time 05/27/2024 05/27/2024 The total time devoted to today's encounter, including both the hcgf-bh-xatt time with the patient and/or family/caregi charity and wsa-ekol-nc-f elida time I personally spent is 25 minutes. FMLA- desires full return to work status starting on 06.01.24. Lasix is now at 40mg BID. has been on this regimen for the last few weeks. Has not been taking potassium. Not available 05/27/2024 14:16:53 Plan of Treatment Reminders Order Date Submit Date Provider Last Modified By Organization Details Last Modified Time Details Appointments Follow Up 30 2023 02:00P M Not available Not available Not available Medical Nutrition Therapy 60 2023 02:00P M Not available Not available Not available Office Visit 30 2023 03:00P M Not available Not available Not available Lab BMP, serum or plasma 2023 024 ATHENAFAX [facility] (Registration ), [address] [place] [address] [place], [address], 05/27/2024 16:35:20 Referral None recorded. Procedures None recorded. Surgeries None recorded. Imaging None recorded. Medication Orders None recorded. Patient TargetsNo targets recorded. Patient InstructionsNo instructions recorded. Reason for Referral Value Stream Manager Referral for Nodu le of subcutaneous tissue of left foot provider is wondering why this pt has not been contacted yet - resending Referring Physician: Olga Marcus [facility], Encounter Date: 09/23/2023 Sleep Medicine Referral for Obstructive sleep apnea syndrome Referring Physician: Olga Marcus [facility], Encounter Date: 11/07/2023 Urologist Referral for Erect ile dysfunction Referring Physician: Olga Marcus [facility], Encounter Date: 11/07/2023 EGD Referral for Digestive s ystem finding Referring Physician: Olga Marcus [facility], Encounter Date: 11/07/2023 Plastic Surgeon Referral for Gynecomastia Referring Physician: Olga Marcus [facility], Encounter Date: 12/05/2023 Endocrinology Referral for T ype 2 diabetes mellitus without complication Referring Physician: Olga Marcus [facility], Encounter Date: 02/23/2024 Vascular Surgeon Referral fo r Cramp in lower limb Referring Physician: Olga Marcus [facility], Encounter Date: 02/23/2024 Cook Cashier Food Prep Referral f or Type 2 diabetes mellitus without complication referral for Freestyle Lina 3 Referring Physician: Olga Marcus [facility], Encounter Date: 04/02/2024 Physical Therapist Referral for Pain of left shoulder joint Referring Physician: Olga Marcus [facility], Encounter Date: 04/20/2024 Problems Name Problem SNOMED Code Status Onset Date Resolution Date Notes Provider Name and Address Organization Details Recorded Time [facility] 96447438 Active 2006 Alie dorsey [facility] 4 13:29:59 Nephroti c syndrome 56555838 Completed 200603/03/2007 Not Available [facility] 3 04:42:43 Chronic kidney disease stage 3 628225835 Active 2010 Alie dorsey [facility] 4 13:29:40 Obstruct kong sleep apnea syndrome 71864398 [facility] 4 13:30:42 Anxiety 30212857 [facility] 4 13:29:15 Type 2 diabetes mellitus without complica tion 684573359 Active 2015 [facility] 4 13:30:59 Obesity 323365652 Active 2015 [facility] 4 13:30:35 Edema 256936285 Active 2015 [facility] 4 13:29:50 Allergy to food 208420565 Active 2016 [facility] 4 13:29:10 Adult health examinat ion Active 2018 [facility] 4 13:29:06 Erectile dysfunct ion 646624714 Active 2018 [facility] 4 13:29:54 Neuropat hy due to type 2 diabetes mellitus 46707301553 9106 Active 2020 [facility] 4 13:30:25 Screenin g for malignan t neoplasm of colon Active 2020 [facility] 4 13:30:50 Digestiv e system finding 194745694 Active 2021 [facility] 4 13:29:44 Vitamin B deficien cy 54787007 Active 2021 [facility] 4 13:31:03 Pre-surg mirta evaluati on Completed 202106/01/2022 Problem Code: Z01.818; Problem Code Type: ICD-10; Not Available [facility] 3 04:42:45 Bilatera l hearing loss 01388873 Active 2021 [facility], [facility] 4 13:29:19 Venereal disease screenin g Completed 202108/24/2022 Problem Code: Z11.3; Problem Code Type: ICD-10; Not Available [facility] 3 04:42:45 Hypomagn esemia 643250370 Active 2022 [facility], [facility] 4 13:30:11 Secondar y polycyth emia 68519143 Active 2022 [facility], [facility] 4 13:30:54 Kidney stone 14960642 Active 2022 [facility], [facility] 4 13:30:16 History of polyp of colon 048620185 Active 2022 [facility], [facility] 4 13:30:07 Disorder of nasal sinus 5471540 Active 2022 OLGA MARCUS, [employer] [address], [place], [address] , [facility] 4 08:08:16 Nonalcoh olic steatohe patitis 040485660 Active 2022 [facility], [facility] 4 13:30:32 Body mass index 30+ - obesity 286168764 Active 2022 [facility], [facility] 4 13:29:23 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 mellitus 944215236 Active 2022 Alie Seibold null, [facility]. 4 13:30:46 Nephroti c syndrome , diffuse membrano us glomerul onephrit is 061609030 Active 2022 Alie dorsey [facility] 4 13:30:20 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 00901179350 00 Active 2022 Alie dorsey [facility] 4 13:30:03 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 68855896067 00 Completed 202004/10/2021 Problem Code: E11.621; Problem Code Type: ICD-10; Alie dorsey [facility] 4 13:30:03 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 78556122409 00 Completed 202007/25/2022 Problem Code: E11.621; Problem Code Type: ICD-10; [facility] 4 13:30:03 Hypergly cemia due to type 2 diabetes mellitus 86697747459 9109 Completed 201608/15/2017 Problem Code: E11.65; Problem Code Type: ICD-10; Not Available [facility] 3 04:42:47 Phimosis 789601930 Completed 201704/29/2022 Problem Code: N47.1; Problem Code Type: ICD-10; Not Available [facility] 3 04:42:47 Snoring 01660471 Completed 201303/01/2016 Not Available [facility] 3 04:42:48 Imaging of abdomen abnormal 683729026 Completed 202212/20/2022 Problem Code: R93.5; Problem Code Type: ICD-10; Not Available [facility] 3 04:42:48 Adult health examinat ion Completed 201403/01/2016 Problem Code: Z00.00; Problem Code Type: ICD-10; [facility] 4 13:29:06 Obesity 314066887 Completed 200606/11/2023 [facility] 4 13:30:35 Fatigue 88380311 Completed 201303/01/2016 Not Available [facility] 3 04:42:48 Acute upper respirat ory infectio n 93784036 Completed 202004/29/2022 Problem Code: J06.9; Problem Code Type: ICD-10; Not Available [facility] 3 04:42:49 Nausea 811992049 Completed 202212/20/2022 Problem Code: R11.0; Problem Code Type: ICD-10; Not Available [facility] 3 04:42:49 Type 2 diabetes mellitus without complica tion 845446987 Completed 202201/10/2023 Problem Code: E11.9; Problem Code Type: ICD-10; Alie dorsey [facility] 13:30:59 Dyssomni a 95863833 Completed 201303/01/2016 Problem Code: 780.59; Problem Code Type: ICD-9; Not Available [facility] 3 04:42:49 Acute bronchit is 30734739 Completed 201708/09/2019 Problem Code: J20.9; Problem Code Type: ICD-10; Not Available [facility] 3 04:42:49 Nausea and vomiting 59955577 Completed 202107/25/2022 Problem Code: R11.2; Problem Code Type: ICD-10; Not Available [facility] 3 04:42:50 Sleep apnea 80744672 Completed 201306/11/2023 Problem Code: 780.57; Problem Code Type: ICD-9; Not Available [facility] 3 04:42:50 Disturba nce of consciou sness 9497331 Completed 201303/01/2016 Problem Code: 780.09; Problem Code Type: ICD-9; Not Available [facility] 3 04:42:50 Acute sinusiti s 08134965 Completed 202004/10/2021 Problem Code: J01.90; Problem Code Type: ICD-10; Not Available [facility] 3 04:42:50 Balaniti s 17715923 Completed 201608/15/2017 Problem Code: N48.1; Problem Code Type: ICD-10; Not Available [facility] 3 04:42:51 Sleep disorder 24330125 Completed 201303/01/2016 Problem Code: 780.50; Problem Code Type: ICD-9; Not Available [facility] 3 04:42:51 Nodule of subcutan eous tissue of left foot 46458448739 925448 Active 2023 OLGA MARCUS APRN [address], [facility] [address] , [facility]. 4 08:13:06 Benign prostati c hyperpla mercy 895833446 Active 2023 Alie Crowell [facility], [facility]. 4 13:31:06 Headache 65333916 Active 2023 OLGA MARCUS APRN [address], [facility] [address] , [facility], [facility]. 4 08:57:45 Gynecoma stia 7353782 Active 2023 Alie dorsey, [facility] 4 13:31:13 Ulcer of left foot 706577744 Active 2023 ARNALDO GOMEZ CMA null, [facility]. 4 09:47:50 Fibromat osis of plantar fascia of left foot 14901775275 027579 Active 2023 Alie dorsey, [facility] 4 13:31:10 Carcinom a of duodenum 982726768 Active 2023 EGD 4/24, biopsy at that time OLGA MARCUS APRN [address], [place], [address] , [facility] 4 09:30:26 Pain of left shoulder joint 58629389686 207811 Active 2023 OLGA MARCUS APRN [address], [place], [address] , [facility] 4 09:14:45 Cramp in lower limb 558705342 Active 2023 OLGA MARCUS APRN [address], [place], [address] , [facility] 4 09:15:29 Pain in right hip joint 23128044559 9102 Active 2023 OLGA MARCUS APRN [address], [facility] [address] , [facility] 4 09:19:09 Prolonge d QT interval 301121570 Active 2023 OLGA MARCUS APRN [address], [place], [address] , [facility] 4 09:53:55 Hypergly cemia due to type 1 diabetes mellitus 80873354386 9101 Active 2023 OLGA MARCUS APRN [address], [facility] [address] , [facility] 4 14:16:49 Notes:*Problem Name: Duodena l polyp *Problem Status: active *Comments: *Problem Code: K31.7 *Problem Code Type: ICD-10 *Note Date: 2022 Problem Notes None recorded. Procedures Surgical History Date Name Laterality Status Provider Name and Address Organization Details Recorded Time 4 IV insert completed Kinsey Oliveira RN null, [facility] 03/24/2024 15:58:08 4 endoscopy completed ARNALDO GOMEZ CMA null, [facility] 01/02/2024 15:34:11 Imaging Results None recorded. Procedure Notes None recorded. Medical Equipment None Reported. Allergies Allergen ID Allergen Name Allergen Category Reaction Reaction Severity Criticality Documentation Date Start Date Code Code System Note Provider Name and Address Organization Details Recorded Time 09061 Medicinal product containin g penicilli n and acting as antibacte rial agent (product) medicatio n other mild Not available 11/29/20232006 57084 05 SNOMED Swell ing of cole Lim [facility] 13:58:03 Medications Name Sig Start Date Stop [...] oral route as needed. 2023 active Per [facility] d/c summary 04/01/24 Not Available [...] 150 mg capsule 05/27 completed Stopped per [facility] d/c summary 04/01/24 Not Available [...] EVERY DAY NEEDED 05/27 completed Stopped per [facility] d/c summary 04/01/24 Not Available [...] a day by oral route. active Per [facility] d/c summary continue 04/01/24 Not [...] active Not Available Not Available Not Avrichard labtashia BD Ultra-Fin e Mini Pen Needle 31 [...] MOUTH EVERY DAY 04/23 completed Stopped per [facility] d/c summary 04/01/24 Not Available [...] Not Available Not Available Not Available BD Apge 2nd Gen Pen Needle 32 gauge x 32 USE 1 PEN NEEDLE TO INJECT SUBCUTAN [...] Available No t Available FreeStyle Lina 3 Blanco USE DIRECTED active Not Available Not Available No t Available Vitals Date Recorded Body height Body mass index (BMI) Body weight Body temperature Oxygen saturation Oxygen saturation in Arterial blood by Pulse oximetry Heart rate Systolic blood pressure Diastolic blood pressure Provider Name and Address Organization Details Last Updated DateTime 4 186.69 cm 34.4 kg/m2 692777. 19 g 97 [degF] 97 % 97 % 102 /min 140 mm[Hg] 90 mm[Hg] ARNALDO GOMEZ [facility]. 4 13:44:52 Date Recorded Systolic blood pressure Diastolic blood pressure Provider Name and Address Organization Details Last Updated DateTime 05/27/2024 132 mm[Hg] 82 mm[Hg] OLGA MARCUS APRN [address], [place], [address], [facility] 05/27/2024 14:07:58 Social History Question Answer Notes LastModified by Organizat ion Details LastModified Time Tobacco Smoking Status Never Smoker ARNALDO GOMEZBRI null, [facility] 12/05/2023 08:46:50 What Was The Date [...] split virus, trivalent, PF 05/27/2024 completed OLGA MARCUS APRN [address], [place], [address], [facility] 05/27/2024 14:49:23 Td (adult), 2 Lf tetanus toxoid, preservative free, adsorbed 04/22/2017 completed Not Available [facility] 07/25/2023 06:32:54 Tdap 02/27/2007 completed Not Available [facility] 06:32:54 Influenza, split virus, quadrivalent, PF 09/21/2020 completed Not Available [facility] 07/25/2023 06:32:54 Influenza, split virus, quadrivalent, PF 06/19/2021 completed Not Available [facility] 07/25/2023 06:32:54 Influenza, split virus, quadrivalent, PF 08/02/2019 completed Not Available [facility] 07/25/2023 06:32:54 COVID-19 vaccine, vector-nr, rS-Ad26, PF, 0.5 mL 01/19/2021 completed Not Available [facility] 07/25/2023 06:32:54 pneumococcal polysaccharide PPV23 09/21/2020 completed Not Available [facility] 2022 06:32:54 influenza, unspecified formulation 07/05/2016 completed Not Available [facility] 07/25/2023 06:32:54 influenza, unspecified formulation 07/16/2017 completed Not Available [facility] 07/25/2023 06:32:54 Influenza, split virus, quadrivalent, PF 06/17/2023 completed Not Available [facility] 09/26/2023 05:33:26 Past Encounters Encounter ID Performer Location Encounter Start Date Encounter Closed Date Diagnosis/Indication Diagnosis SNOMED-CT Code Diagnosis ICD10 Code [id number] OLGA MARCUS [address] [address] 05/27/2024 13:25:36 05/27/2024 14:46:21 Hyperglycemia due to type 1 diabetes mellitus 9359461810 75473 E10.65 Active or passive immunization 280287682 Z23 Health Concerns Section Related Observation LastModified by Organization Detai ls LastModified Time None Recorded Concern Status LastModified by Organization Details LastModified Time None Recorded Payers Encounter Date Sequence Insurance Name Policy Number Policy Loo Covered Member ID Loo Member ID Guarantor Name 05/27/2024 1 UMR [id number] Charles Hernandez [id number] Charles Nick Notes Date Note Type Note Provider Name and Address Organization Details Recorded Time 05/27/2024 text/html HPI Notes: Is he re for FU DM. Diabetes. Neuropathy. B12 deficiency. Hypomag. Metformin caused B12 deficiency, mag deficiency and was stopped prior to whipple procedure. bydureon,started in Oct 08, not tolerated and stopped. is doing semglee insulin and meal time insulin. Takes gabapentin for neuropathy. BS trends: High in the last month 450. Low in the last month 120 Average 200-250 Neuropathy: getting better. Polyphagia, polydipsia; denies polyuria. Saw endocrinology last week, Recommendations were to increase semglee to 30 units every morning and if the sugar is over 180 to increase for 2 days in a row, to increase the semglee by 2 units. If sugar is under 100 -2 days in a row, to subtract 2 units from the semglee dose. Was also encouraged to start doing meal time insulin. He was instructed to do carb counting plus sliding scale for any sugar over 150. Carb counting- he guesses. He looks at his glucose is, but does not look at what he is eating for carb. Does the SS insulin and not the carb counting amount. Starts chemo tomorrow; nervous about this. 6 months, every 2 weeks. Has glucose tablets. Worries about neuropathy, has lotions to help with this. Infusion will be over 48 hours. [facility] runs out on 06.09.24. Worries about finances. Boss is supportive. only has vacation time, not sure how much but feels about 2 weeks or less. 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 OLGA MARCUS, [employer] [address], [place], [address], [facility]. 05/27/2024 14:54:11
--- OUTSIDE RECORDS SUMMARY | 2024-05-27 17:55 | XMS_ITS | Continuity of Care Document ---
Author Organization [place] - [facility] Address [address] [place] [address] Assessment No assessment recorded. Plan of Treatment [...] Patient InstructionsNo instructions recorded. 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 Referral for Nodu le of subcutaneous tissue of left foot provider is wondering why this pt has not been contacted yet - resending Referring Physician: Olga Marcus [facility], Encounter Date: 09/23/2023 Sleep Medicine Referral for Obstructive sleep apnea syndrome Referring Physician: Olga Marcus [facility], Encounter Date: 11/07/2023 Urologist Referral for Erect ile dysfunction Referring Physician: Olga Marcus [facility], Encounter Date: 11/07/2023 EGD Referral for Digestive s ystem finding Referring Physician: Olga Marcus [facility], Encounter Date: 11/07/2023 Plastic Surgeon Referral for Gynecomastia Referring Physician: Olga Marcus [facility], Encounter Date: 12/05/2023 Endocrinology Referral for T ype 2 diabetes mellitus without complication Referring Physician: Olga Marcus [facility], Encounter Date: 02/23/2024 Vascular Surgeon Referral fo r Cramp in lower limb Referring Physician: Olga Marcus [facility], Encounter Date: 02/23/2024 Drywall Contractor Referral f or Type 2 diabetes mellitus without complication referral for Freestyle Lina 3 Referring Physician: Olga Marcus [facility], Encounter Date: 04/02/2024 Physical Therapist Referral for Pain of left shoulder joint Referring Physician: Olga Marcus [facility], Encounter Date: 04/20/2024 Results Created Date Observation Date Name Description Value Unit Range Abnormal Flag Note LastModifiedBy Organization Detail LastModifiedTime 02/26/20 24 02/26/2024 CT imagi ng repor t Patien t Name: Charles Nick Unit #: [id number] Loc: DI Orderi ng Provid er: Quang Hernandez t #: [id number] Status : REG CLI Primar y [...] limits for the patien t's age. IMPRES DEWANYE: 1. The patien t's known mass in [...] ZATION : [facility] use at least one of these dose optimi zation techni ques: automa dotty exposu re contro l; mA and/or kV adjust ment per patien t size (inclu shaw target ed exams where dose is matche d to clinic al indica tion); or iterat kong recons tructi on. 002: Total DLP = 0.00 mGy-cm Ordere d By: Quang Hernandez CC: [facility] ------ ------ ------ ------ ------ ------ ------ ------ ------ ------ ------ ------ ---- Dictat ed By: Juan Delacruz M.D. [id number] Transc ribed By: Juan Delacruz 1107 This [...] above. Thank- you. [facility] [address], [place], [address] 02/26/2024 13:16:53 03/24/20 24 03/24/2024 CT imagi ng repor t Patien t Name: Charles Nick Unit #: [id number] Loc: ER Orderi ng Provid er: Rayo Ramos M.D. Accoun t #: [id number] Status : REG ER Primar y Care Provid er: Jaye Chamberlainn Date of Exam: 07/08 Sex: M : [...] bution by any person other than this [facility] er is strict ly prohib ited. If you receiv e this report in error, please notify us immedi joel at and return the origin al report to us at the addres s above. Thank- you. [facility] [address] [place], [address] 03/25/2024 04:38:41 03/26/20 24 03/25/2024 elect gerardo olvera am EKG JALYN Holland NAME: Charles Nick UNIT #: [id number] [facility] NG PROVID ER: Kenny Garcia DO ACCOUN T #: [id number] PRIMAR Y CARE PROVID ER: Alexa CHAMBERLAIN APRN DATE/T JOHN OF SERVIC E: 1507 : 1975 PERFOR HARPER LOCATI ON: ER ------ ------ --- APPROV ED REPORT ------ ------ -- Exam: Restin g ECG Reason for Exam: Hypote charmaine holland Locati on: E HR:112 bpm ECG Measur ements Heart Rate 112 AXIS OK 152 P 54 QRSd 103 QRS 70 QT 371 T -52 QTc 507 Conclu dewayne Sinus tachyc ardia. ..rate > 99 Nonspe cific T abnorm alitie s, inferi or leads. ..T <-0.10 mV, II III aVF Prolon ged QT interv al...Q Tc >500mS I have review ed and interp reted ECG and agree with kassidy camarillop retati on. ------ ------ ------ ------ ------ ------ ------ ------ ------ ------ ------ ------ ------ ------ ------ ------ ---- ------ - E-Sign Date: E-Sign Time: 0008 ------ ------ --- ADDEND APPRO ED REPORT ------ ------ -- Exam: Restin g ECG Reason for Exam: Hypote charmaine holland Locati on: E HR:112 bpm ECG Measur ements Heart Rate 112 AXIS OK 152 P 54 QRSd 103 QRS 70 [...] signed by: [id number] Cosign ed by: [email or web address] [facility] [address] [place], [address] 03/26/2024 08:57:17 Result Notes None recorded. Problems Name Problem SNOMED Code Status Onset Date Resolution Date Notes Provider Name and Address Organization Details Recorded Time Jasmyne l hyperten dewayne 45697038 [facility] 4 13:29:59 Nephroti c syndrome 14745830 Completed 200603/03/2007 Not Available [facility] 3 04:42:43 Chronic kidney disease stage 3 092798389 Active 2010 [facility]. 4 13:29:40 Obstruct kong sleep apnea syndrome 74321240 Active 2013 [facility]. 4 13:30:42 Anxiety 53829340 [facility] 4 13:29:15 Type 2 diabetes mellitus without complica tion 421852161 Active 2015 [facility] 4 13:30:59 Obesity 144265899 Active [facility] 4 13:30:35 Edema 103069087 Active [facility] 4 13:29:50 Allergy to food 656196368 Active 2016 Alieher Crowell [facility] 4 13:29:10 Adult health [facility]inat ion [facility] 4 13:29:06 Erectile dysfunct ion 878220373 Active 2018 [facility] 4 13:29:54 Neuropat hy due to type 2 diabetes mellitus 92302499335 9106 Active 2020 [facility] 4 13:30:25 Screenin g for malignan t neoplasm of colon Active 2020 [facility] 4 13:30:50 Digestiv e system finding 591105891 Active 2021 Alie Mervat [facility] 4 13:29:44 Vitamin B deficien cy 26606952 Active 2021 [facility] 4 13:31:03 Pre-surg mirta evaluati on Completed 202106/01/2022 Problem Code: Z01.818; Problem Code Type: ICD-10; Not Available [facility] 3 04:42:45 Bilatera l hearing loss 61226090 Active 2021 [facility] 4 13:29:19 Venereal disease screenin g Completed 202108/24/2022 Problem Code: Z11.3; Problem Code Type: ICD-10; Not Available [facility] 3 04:42:45 Hypomagn esemia 085339255 Active 2022 [facility] 4 13:30:11 Secondar y polycyth emia 67752264 Active 2022 Alie Mervat [facility], [facility] 4 13:30:54 Kidney stone 72178892 Active 2022 Alie jos em [facility] 4 13:30:16 History of polyp of colon 786440450 [facility] 4 13:30:07 Disorder of nasal sinus 6800018 Active 2022 OLGA MARCUS, I&C TECHNICIAN [address], [place], [address] , [facility] 4 08:08:16 Nonalcoh olic steatohe patitis 250864039 Active 2022 [facility] 4 13:30:32 Body mass index 30+ - obesity 699198772 Active 20[facility] 4 13:29:23 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 mellitus 014301050 Active 2022 [facility] 4 13:30:46 Nephroti c syndrome , diffuse membrano us glomerul onephrit is 591787636 Active 2022 [facility] 4 13:30:20 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 70050144231 00 [facility] 2022 [facility] 4 13:30:03 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 82040298047 00 Completed 202004/10/2021 Problem Code: E11.621; Problem Code Type: ICD-10; Alei Mervat dorsey, [facility] 4 13:30:03 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 66976176591 00 Completed 202007/25/2022 Problem Code: E11.621; Problem Code Type: ICD-10; [facility] 4 13:30:03 Hypergly cemia due to type 2 diabetes mellitus 50453819962 9109 Completed 201608/15/2017 Problem Code: E11.65; Problem Code Type: ICD-10; Not Available [facility] 3 04:42:47 Phimosis 025759725 Completed 201704/29/2022 Problem Code: N47.1; Problem Code Type: ICD-10; Not Available [facility] 3 04:42:47 Snoring 04760520 Completed 201303/01/2016 Not Available [facility] 3 04:42:48 Imaging of abdomen abnormal 422574269 Completed 202212/20/2022 Problem Code: R93.5; Problem Code Type: ICD-10; Not Available [facility] 3 04:42:48 Adult health examinat ion Completed 201403/01/2016 Problem Code: Z00.00; Problem Code Type: ICD-10; [facility] 4 13:29:06 Obesity 519840353 Completed 200606/11/2023 [facility] 4 13:30:35 Fatigue 94719297 Completed 201303/01/2016 Not Available [facility] 3 04:42:48 Acute upper respirat ory infectio n 77482712 Completed 202004/29/2022 Problem Code: J06.9; Problem Code Type: ICD-10; Not Available [facility] 3 04:42:49 Nausea 655247866 Completed 202212/20/2022 Problem Code: R11.0; Problem Code Type: ICD-10; Not Available [facility] 3 04:42:49 Type 2 diabetes mellitus without complica tion 449950677 Completed 202201/10/2023 Problem Code: E11.9; Problem Code Type: ICD-10; Alie dorsey [facility] 4 13:30:59 Dyssomni a 07440590 Completed 201303/01/2016 Problem Code: 780.59; Problem Code Type: ICD-9; Not Available [facility] 3 04:42:49 Acute bronchit is 14895342 Completed 201708/09/2019 Problem Code: J20.9; Problem Code Type: ICD-10; Not Available [facility] 3 04:42:49 Nausea and vomiting 14867314 Completed 202107/25/2022 Problem Code: R11.2; Problem Code Type: ICD-10; Not Available [facility] 3 04:42:50 Sleep apnea 64941064 Completed 201306/11/2023 Problem Code: 780.57; Problem Code Type: ICD-9; Not Available [facility] 3 04:42:50 Disturba nce of consciou sness 1028778 Completed 201303/01/2016 Problem Code: 780.09; Problem Code Type: ICD-9; Not Available [facility] 3 04:42:50 Acute sinusiti s 93887236 Completed 202004/10/2021 Problem Code: J01.90; Problem Code Type: ICD-10; Not Available [facility] 3 04:42:50 Balaniti s 98711823 Completed 201608/15/2017 Problem Code: N48.1; Problem Code Type: ICD-10; Not Available [facility] 3 04:42:51 Sleep disorder 62371344 Completed 201303/01/2016 Problem Code: 780.50; Problem Code Type: ICD-9; Not Available [facility] 3 04:42:51 Nodule of subcutan eous tissue of left foot 07651958726 953833 Active 2023 OLGA MARCUS APRN [address], [place], [address] , [facility], [facility]. 4 08:13:06 Benign prostati c hyperpla mercy 745331912 Active 2023 Alie dorsey, [facility]. 4 13:31:06 Headache 55280588 Active 2023 OLGA MARCUS APRN [address], [place], [address] , [facility] 4 08:57:45 Gynecoma stia 3897738 Active 2023 Alie yasmeen dorsey, [facility] 4 13:31:13 Ulcer of left foot 509353783 Active 2023 ARNALDO GOMEZ CMA null, [facility] 4 09:47:50 Fibromat osis of plantar fascia of left foot 44719833385 664021 Active 2023 Alie yasmeen dorsey, [facility] 4 13:31:10 Carcinom a of duodenum 039435867 Active 2023 EGD 01/06, biopsy at that time OLGA MARCUS APRN [address], [place], [address] , [facility] 4 09:30:26 Pain of left shoulder joint 64122014751 086046 Active 2023 OLGA MARCUS APRN [address], [place], [address] , [facility]. 4 09:14:45 Cramp in lower limb 981700652 Active 2023 OLGA MARCUS APRN [address], [place], [address] , [facility]. 4 09:15:29 Pain in right hip joint 29778341737 9102 Active 2023 OLGA MARCUS APRN [address], [place], [address] , [facility] 4 09:19:09 Prolonge d QT interval 887915215 Active 2023 OLGA MARCUS APRN [address], [facility] [address] , [facility] 4 09:53:55 Hypergly cemia due to type 1 diabetes mellitus 69942129830 9101 Active 2023 OLGA MARCUS APRN [address], [facility] [address] , [facility] 4 14:16:49 Notes:*Problem Name: Duodena l polyp *Problem Status: active *Comments: *Problem Code: K31.7 *Problem Code Type: ICD-10 *Note Date: 2022 Problem Notes None recorded. Procedures Surgical History Date Name Laterality Status Provider Name and Address Organization Details Recorded Time 4 IV insert completed Kinsey Oliveira RN [facility] 03/24/2024 15:58:08 4 endoscopy completed ARNALDO GOMEZ CMA [facility], [facility] 01/02/2024 15:34:11 Imaging Results None recorded. Procedure Notes None recorded. Medical Equipment None Reported. Allergies Allergen ID Allergen Name Allergen Category Reaction Reaction Severity Criticality Documentation Date Start Date Code Code System Note Provider Name and Address Organization Details Recorded Time 79605 Medicinal product containin g penicilli n and acting as antibacte rial agent (product) medicatio n other mild Not available 11/29/20232006 89343 05 SNOMED Swell ing of throa t Loren Carina [facility], [facility] 4 13:58:03 Medications Name Sig [...] oral route as needed. 2023 active Per [facility] d/c summary 04/01/24 Not Available Not Available [...] 150 mg capsule 05/27 completed Stopped per [facility] d/c summary 04/01/24 Not Available Not Available [...] EVERY DAY NEEDED 05/27 completed Stopped per [facility] d/c summary 04/01/24 Not Available Not Available [...] a day by oral route. active Per [facility] d/c summary continue 04/01/24 Not Available Not [...] Not Available Not Available Not Avai lable BD Ultra-Fin e Mini Pen Needle 31 [...] MOUTH EVERY DAY 04/23 completed Stopped per [facility] d/c summary 04/01/24 Not Available Not Available [...] 2nd Gen Pen Needle 32 gauge x 5/32 USE 1 PEN NEEDLE TO INJECT SUBCUTAN [...] Available No t Available FreeStyle Lina 3 Virgie USE DIRECTED active Not Available Not Available No t Available Vitals Date Recorded Body height Body mass index (BMI) Body weight Oxygen saturation Oxygen saturation in Arterial blood by Pulse oximetry Heart rate Systolic blood pressure Diastolic blood pressure Provider Name and Address Organization Details Last Updated DateTime 4 186.69 cm 34.4 kg/m2 082038. 39 g 97 % 97 % 116 /min 128 mm[Hg] 66 mm[Hg] MELANIE MEIER MA [facility] 15:00:31 Social History Question Answer Notes LastModified by Organizat ion Details LastModified Time Tobacco Smoking Status Never Smoker BRI NELSON, [facility] 12/05/2023 08:46:50 What Was The [...] trivalent, PF 05/27/2024 completed OLGA MARCUS APRN [facility] [address], [place], [address], [facility] 05/27/2024 14:49:23 Td (adult), 2 Lf tetanus toxoid, preservative free, adsorbed 04/22/2017 completed Not Available [facility] 07/25/2023 06:32:54 Tdap 02/27/2007 completed Not Available [facility] 06:32:54 Influenza, split virus, quadrivalent, PF 09/21/2020 completed Not Available [facility] 07/25/2023 06:32:54 Influenza, split virus, quadrivalent, PF 06/19/2021 completed Not Available [facility] 07/25/2023 06:32:54 Influenza, split virus, quadrivalent, PF 08/02/2019 completed Not Available [facility] 07/25/2023 06:32:54 COVID-19 vaccine, vector-nr, rS-Ad26, PF, 0.5 mL 01/19/2021 completed Not Available [facility] 07/25/2023 06:32:54 pneumococcal polysaccharide PPV23 09/21/2020 completed Not Available [facility] 2022 06:32:54 influenza, unspecified formulation 07/05/2016 completed Not Available [facility] 07/25/2023 06:32:54 influenza, unspecified formulation 07/16/2017 completed Not Available [facility] 07/25/2023 06:32:54 Influenza, split virus, quadrivalent, PF 06/17/2023 completed Not Available [facility] 09/26/2023 05:33:26 Past Encounters Encounter ID Performer Location Encounter Start Date Encounter Closed Date Diagnosis/Indication Diagnosis SNOMED-CT Code Diagnosis ICD10 Code [id number] OLGA MARCUS APRN [address] [address] 02/23/2024 08:58:06 02/23/2024 09:59:23 Type 2 diabetes mellitus without complication 592122773 E11.9 E11.40 Essential hypertension 16271942 I10 N18.9 R60.9 Anxiety 80387985 F41.9 F32.A Z73.3 Obstructiv e sleep apnea syndrome 32540440 G47.33 Body mass index 30+ - obesity 963338365 Z68.36 Digestive system finding 835347785 R19.8 Nonalcohol ic steatohepatitis 673060960 K75.81 Secondary polycythemia 62673238 D75.1 Disorder o f nasal sinus 6226262 J34.9 Nephrotic syndrome, diffuse membranous glomerulonephritis 412444201 N04.20 Nodule of subcutaneous tissue of left foot 6219458935 4440036 R22.42 Erectile dysfunction 860 611356 F52.21 Benign pro static hyperplasia 092101318 N40.0 Carcinoma of duodenum 25 7184564 C17.0 Pain of le ft shoulder joint 0849255592 4047562 M25.512 Cramp in lower limb 4499 13741 R25.2 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 4346102210 100 E11.621 Pain in ri ght hip joint 6032477046 17595 M25.542 [id number] GURJIT WILLIS MD [address] [address] 03/15/2024 14:48:33 03/15/2024 15:46:20 Carcinoma of duodenum 300119747 C17.0 Health Concerns Section Related Observation LastModified by Organization Detai ls LastModified Time None Recorded Concern Status LastModified by Organization Details LastModified Time None Recorded Payers Encounter Date Sequence Insurance Name Policy Number Policy Loo Covered Member ID Loo Member ID Guarantor Name 03/15/2024 1 [employer] [id number] Charles Hernandez [id number] Charles Nick Notes Date Note Type Note Provider Name and Address Organization Details Recorded Time 03/15/2024 text/html HPI Notes: Sandy nt here for some hospital discharge follow-up. 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 [...] range GURJIT WILLIS MD [address], [place], [address], [facility]. 03/17/2024 10:23:16
--- OUTSIDE RECORDS SUMMARY | 2024-05-27 17:55 | XMS_ITS | Encounter Summary ---
Author Organization [facility] Address [address] [place] [address] Care Team Providers Care Electronics Supervisor Name Role Phone Ramiro Cardenas MD Primary Care Provider [phone] Encounter Details Date Type Department Care Team (Late st Contact Info) Description 01/02/2024 Lab Requisition [facility] Pathology & Laboratory Medicine - [facility] [address] [place] [address] Mac Delacruz MD [address] [place] [address], [address] [place], [place] [id number] Benign neoplasm, unspecified site Social History Tobacco [...] explore management options, if applicable. 01/07/2024 11:44 [facility] Final Diagnosis A. DUODENUM, POLYP, BIOPSY: - Invasive moderately-differen tiated adenocarcinoma. - Lymphovascular invasion is identified. - See comment. 01/07/2024 11:44 [facility] Diagnosis Comment Grain Elevator Superintendent slides of this case were reviewed at the gastrointestinal/[facility] intradepartmental consultation conference. () Immunoperoxidase stains were performed on this case to further characterize the lesion. ANTIBODY(CLONE)(BLO CK):RESULT ERG ([id number], [place]) (A1): Positive around region of interest. CD31 [...] performance characteristics have been determined by [facility] and/or by the referring laboratory. [...] high complexity clinical laboratory testing. 01/07/2024 11:44 [facility] Attestation By the signature below, the attending physician certifies that they have 1) personally conducted a gross and/or microscopic examination of the described specimen(s), and/or personally interpreted the results of laboratory testing of the described specimen(s), and 2) personally rendered or confirmed the above diagnosis. 01/07/2024 11:44 [facility] at 1144 Clinical History History of duodenal nodule, previous tubulovillous adenoma 01/07/2024 11:44 [facility] Gross Description A. Received in formalin labelled with proper patient identification (initials O, S) and duodenum polyp are four shi tissue fragments ranging from 0.2 x 0.2 x 0.1 cm to 0.4 x 0.3 x 0.2 cm. Entirely submitted in A1. JULIO RADFORD(ASCP) 01/05/2024 7:15 01/07/2024 11:44 EDT [facility] Performing Lab [facility] 01/07/2024 11:44 EDT [facility] Scanned Images 01/07/2024 11:44 EDT [facility] Tissue STRUCTURE OF SMALL INTESTINE / Unknown 01/02/2024 8:41 EDT 01/02/2024 17:09 EDT Mac Delacruz MD PATHOLOGY ORDERABLES [facility] [address] [place] [address] documented in this encounter Visit Diagnoses Diagnosis Benign neoplasm, unspecified site documented in this encounter Care Teams Electronics Supervisor Relationship Specialty Start Date End Date Ramiro Cardenas MD [address] [place] [address] PCP - General 04/24/09 documented as of this encounter
--- OUTSIDE RECORDS SUMMARY | 2024-05-27 17:56 | XMS_ITS | Encounter Summary ---
Author Organization [facility] Address [address] [place] [address] Care Team Providers Care Custom Stock Maker Name Role Phone Ramiro Cardenas MD Primary Care Provider [phone] Reason for Referral * Specialty Diagnoses / Procedures Referred By Janak holland Referred To Contact Ezequiel Andrea MD [address] [place] [phone] Referral ID Status Reason Start Date Expiration [...] age-related cataract of left eye [H25.812] Procedures NM XCAPSL CTRC RMVL INSJ IO LENS PROSTH W/O ECP EXTRACTION, CATARACT, EXTRACAPSULAR, WITH IOL INSERTION ORA - Toric Referral ID Status Reason Start Date Expiration Date Visits Re quested Visits Authorized [id number] 1 1 Encounter Details Date Type Department Care Team (Latest Contact Info) Description 05/10/2022 9:45 EDT - 05/10/2022 12:28 EDT Hospital Encounter [facility] Operating Room [address] [place] [address] Ezequiel Andrea MD [address] [place] [phone] Discharge Disposition: Home or Self Care [...] not hesitate to call the office at [phone]. documented in this encounter Medications at Time [...] Toric (L) Operative Note Date: 05/10/2022 [place] [facility]: Charles Nick, : 1975, PREOPERATIVE [...] D, left eye. SURGEON: Ezequiel Andrea MD RESEARCH COMPUTING SPECIALIST: DANIELA Lyn ANESTHESIA: Topical and MAC ESTIMATED [...] complications. The patient returned to the career consultant area alert and in good condition. * Preprocedure Instructions - Nahomi Zuniga RN - 05/07/2022 1024 EDT Charles Nick has been instructed as [...] 9:23 EDT) 05/28/2022 9:23 EDT Scan 2 Hide Selector PROCEDURE/MINOR LEXA GICAL ORDERABLES * ECG REPORT - SCANNED (05/14/2022 8:14 EDT) 05/14/2022 8:14 EDT Scan 2 Hide Selector PROCEDURE/MINOR LEXA GICAL ORDERABLES documented in this [...] 05/10/2022 documented in this encounter Care Teams Custom Stock Maker Relationship Specialty Start Date End Date Ramiro Cardenas MD [address] [place] [address] PCP - General 04/24/09 documented as of this encounter
--- OUTSIDE RECORDS SUMMARY | 2024-05-27 17:56 | XMS_ITS | Encounter Summary ---
Author Organization [facility] Address [address] [place] [address] Care Team Providers Care Clinical Nursing Professor Name Role Phone Ramiro Cardenas MD Primary Care Provider [phone] Reason for Visit * Reason Comments Post-OP Follow Up Same day post op Cat aract surgery - Left eye Encounter Details Date Type Department Care Team (Latest Contact Info) Description 05/10/2022 13:30 EDT Post-op Visit [facility] Ophthalmology [facility] [address] [place], [place] [address] Ezequiel Andrea MD [address] [place] [phone] Cataract extraction status of eye, left (Primary [...] Progress Notes * Ezequiel Andrea MD - 05/10/2022 1330 EDT Chief [...] hazy view to posterior pole Care Teams Clinical Nursing Professor Relationship Specialty Start Date End Date Ramiro Cardenas MD [address] [place] [address] PCP - General 04/24/09 documented as of this encounter
--- OUTSIDE RECORDS SUMMARY | 2024-05-27 17:56 | XMS_ITS | Encounter Summary ---
Author Organization [facility] Address [address] [place] [address] Care Team Providers Care Md Allergy Immunology Name Role Phone Ramiro Cardenas MD Primary Care Provider [phone] Reason for Visit * Reason Onset Date Comments Pre-op Exam 02/27/2022 Encounter Details Date Type Department Care Team (Late st Contact Info) Description 02/27/2022 11:00 EDT Office Visit [facility] Ophthalmology [facility] [address] [place] [address] Ezequiel Andrea MD [address] [place] [phone] Social History Tobacco Use Types Packs/Day Years [...] MASTER/LENS STAR ONLY (02/27/2022 16:24 EDT) Narrative [facility] POINT OF CARE - 02/27/2022 16:24 [...] was provided. Ezequiel Andrea MD OPHTH ULTRASOUND [facility] POINT OF CARE documented in this encounter Visit Diagnoses Diagnosis Combined forms of age-related cataract of left eye- Primary Other and combined forms of senile cataract Combined forms of age-related cataract of right eye Other and combined forms of senile cataract documented in this encounter Care Teams Md Allergy Immunology Relationship Specialty Start Date End Date Ramiro Cardenas MD [address] [place] [address] PCP - General 04/24/09 documented as of this encounter
--- OUTSIDE RECORDS SUMMARY | 2024-05-27 17:56 | XMS_ITS | Encounter Summary ---
Author Organization [facility] Address [address] [place] [address] Care Team Providers Care Naval Aircrewman Helicopter Name Role Phone Ramiro Cardenas MD Primary Care Provider [phone] Reason for Visit * Reason Onset Date Comments Post-OP Follow Up 05/09/2022 Encounter Details Date Type Department Care Team (Latest Contact Info) Description 05/09/2022 9:00 EDT Post-op Visit [facility] Ophthalmology [facility] [address] [place] [address] Ezequiel Andrea MD [address] [place] [phone] Cataract extraction status of eye, right (Primary [...] posterior pole Refraction Manifest Refraction Sphere Cylinder [place] Right -0.25 +0.25 168 Left IMPRESSION & [...] to posterior pole Manifest Refraction Sphere Cylinder [place] Right eye -0.25 +0.25 168 Left eye Care Teams Naval Aircrewman Helicopter Relationship Specialty Start Date End Date Ramiro Cardenas MD [address] [place] [address] PCP - General 04/24/09 documented as of this encounter
--- OUTSIDE RECORDS SUMMARY | 2024-05-27 17:56 | XMS_ITS | Encounter Summary ---
Author Organization [facility] Address [address] [place] [address] Care Team Providers Care On Site Services Specialist Name Role Phone Unknown, Provider Primary Care Provider [phone] Encounter Details Date Type Department Care Team (Late st Contact Info) Description 04/20/2009 Orders Only [facility] Medicine - [address] [address] Robb Decker MD [address] [place], [place] [phone] Social History Tobacco Use Types Packs/Day Years [...] ? KALIE, CHARLES ? Accession #: ? [id number] ? : ? 1975 (Age: 33) ??M [...] thickness. ??The margins are inked black. ??Two customer response representative central sections of the larger excision with underlying fibrofatty tissue are submitted as (A1) and (A2) and customer response representative central sections of the additional excision are ? submitted as (A3). (Simone Law)/mpl ? End of Report ? [facility] 04/20/2009 04/20/2009 18: 41 EDT Robb Decker MD PATHOLOGY ORDERABLES Performing Organization Address City/State/[facility] Co de Phone Number [facility] [address] [place] [address] documented in this encounter Visit Diagnoses Not on filedocumented in this encounter Care Teams On Site Services Specialist Relationship Specialty Start Date End Date Unknown, Provider, PCP - General 04/20/09 04/23/09 documented as of this encounter
--- OUTSIDE RECORDS SUMMARY | 2024-05-27 17:56 | XMS_ITS | Encounter Summary ---
Author Organization [facility] Address [address] [place] [address] Care Team Providers Care Chair Trimmer Name Role Phone Ramiro Cardenas MD Primary Care Provider [phone] Reason for Visit * Auth/Cert Specialty Diagnoses / Procedures Referred By Janak holland Referred To Contact Diagnoses Combined forms of age-related cataract of left eye Combined forms of age-related cataract of left eye [H25.812] Procedures DE XCAPSL CTRC RMVL INSJ IO LENS PROSTH W/O ECP EXTRACTION, CATARACT, EXTRACAPSULAR, WITH IOL INSERTION ORA - Toric Referral ID Status Reason Start Date Expiration Date Visits Re quested Visits Authorized [id number] 1 1 Encounter Details Date Type Department Care Team (Late st Contact Info) Description 05/10/2022 11:15 EDT - 05/10/2022 12:00 EDT Surgery [facility] Operating Room [address] [place] [address] Ezequiel Andrea MD [address] [place] [phone] EXTRACTION, CATARACT, EXTRACAPSULAR, WITH IOL INSERTION ORA - Toric [[id number] (CPT??)] Surgery Details Date/Time Status Location OR Service Patient Class Case Cl ass Case Type Trauma Case? 05/10/[address] [facility] OR 04 Ophthalmology Hos [...] not hesitate to call the office at [phone]. documented in this encounter Medications at Time [...] Toric (L) Operative Note Date: 05/10/2022 Location: [facility] OR Name: Charles Nick, : [...] D, left eye. SURGEON: Ezequiel Andrea MD STATION COOK: DANIELA Lyn ANESTHESIA: Topical and MAC ESTIMATED [...] no complications. The patient returned to the acute care physician area alert and in good condition. * Preprocedure Instructions - Nahomi Zuniga RN - 05/07/2022 2471 EDT Charles Nick has been instructed as [...] 9:23 EDT) 05/28/2022 9:23 EDT Scan 2 Hacksaw Inspector PROCEDURE/MINOR LEXA GICAL ORDERABLES * ECG REPORT - SCANNED (05/14/2022 8:14 EDT) 05/14/2022 8:14 EDT Scan 2 Hacksaw Inspector PROCEDURE/MINOR LEXA GICAL ORDERABLES documented in this [...] 05/10/2022 documented in this encounter Care Teams Chair Trimmer Relationship Specialty Start Date End Date Ramiro Cardenas MD [address] [place] [address] PCP - General 04/24/09 documented as of this encounter
--- OUTSIDE RECORDS SUMMARY | 2024-05-27 17:56 | XMS_ITS | Encounter Summary ---
Author Organization [facility] Address [address] [place] [address] Care Team Providers Care Pin Game Machine Inspector Name Role Phone Ramiro Cardenas MD Primary Care Provider Encounter Details Date Type Department Care Team (Late st Contact Info) Description 06/26/2009 Orders Only [facility] Medicine [address] [address] Robb Decker MD [address] [place], [place] [phone] Social History Tobacco Use Types Packs/Day Years [...] ? KALIE, CHARLES ? Accession #: ? [id number] ? : ? 1975 (Age: 33) ??M [...] length x 0.3 cm ?? in diameter. ??Special Education Supervisor sections are submitted in one cassette. ??(M. ? Luisa)/kmanalilia ? End of Report ? [facility] 06/26/2009 06/27/2009 8:5 2 EDT Robb Decker MD PATHOLOGY ORDERABLES [facility] [address] [place] [address] documented in this encounter Visit Diagnoses Not on filedocumented in this encounter Care Teams Pin Game Machine Inspector Relationship Specialty Start Date End Date Ramiro Cardenas MD [address] [place] [address] PCP - General 04/24/09 documented as of this encounter
--- OUTSIDE RECORDS SUMMARY | 2024-05-27 17:56 | XMS_ITS | Encounter Summary ---
Author Organization [facility] Address [address] [place] [address] Care Team Providers Care Content Director Name Role Phone Ramiro Cardenas MD Primary Care Provider [phone] Reason for Visit * Auth/Cert Specialty Diagnoses / Procedures Referred By Janak holland Referred To Contact Diagnoses Combined forms of age-related cataract of left eye Combined forms of age-related cataract of left eye [H25.812] Procedures [place] XCAPSL CTRC RMVL INSJ IO LENS PROSTH W/O ECP EXTRACTION, CATARACT, EXTRACAPSULAR, WITH IOL INSERTION ORA - Toric Referral ID Status Reason Start Date Expiration Date Visits Re quested Visits Authorized [id number] 1 1 Encounter Details Date Type Department Care Team (Late st Contact Info) Description 05/10/2022 11:12 EDT Anesthesia Event [facility] Operating Room [address] [place] [address] Rosangela Loving MD [address] [place] [phone] Angelita Ochoa CRNA [address] [place] [address] [place] [address] Anesthesia Record Procedure Summary Procedure Name Responsible [...] incision; N 05/03/22 1147 by Jenelle Jordan, bobbin winder tender 05/10/22; 1124; Inci lake; Left; Eye; Surgical [...] 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 . ?? Obesity. [...] mg documented in this encounter Care Teams Content Director Relationship Specialty Start Date End Date Ramiro Cardenas MD [address] [place] [address] PCP - General 04/24/09 documented as of this encounter
--- OUTSIDE RECORDS SUMMARY | 2024-05-27 17:56 | XMS_ITS | Encounter Summary ---
Author Organization [facility] Address [address] [place] [address] Care Team Providers Care Steam Generating Powerplant Mechanic Name Role Phone Ramiro Cardenas MD Primary Care Provider [phone] Reason for Visit * Reason Comments Post-OP Follow Up POM #1 s/p CE/PCIOL, both eyes (Right: 05/03/22 & Left: 05/10/22) Encounter Details Date Type Department Care Team (Latest Contact Info) Description 06/10/2022 9:00 EDT Post-op Visit [facility] Ophthalmology [facility] [address] [place] [address] Ezequiel Andrea MD [address] [place] [phone] Cataract extraction status of eye, left (Primary [...] Progress Notes * Ezequiel Andrea MD - 06/10/2022 0900 EDT Chief [...] Type: OTCs Manifest Refraction (Auto) Sphere Cylinder [place] Add Right -0.25 Sphere Left -0.25 +0.25 141 Manifest Refraction #2 Sphere Cylinder [place] Add Right -0.25 Sphere 20/20 +1.50 Left -0.25 Sphere 20/20 +1.50 IMPRESSION & PLAN: POM #1 s/p CE/PCIOL, both eyes (Right: 05/03/22 & Left: 05/10/22) -The patient is doing well -Finished with eye drops -Recommend AT's PRN for burning -Continue use of OTC reading glasses -Resume care with local management specialist. Return here as needed I have reviewed the patient's past medical, family, social and surgical history. I have also reviewed the patient's medications, allergies, and problem list. I performed my own HPI and have reviewed the [facility]'s ROS as well. I personally completed this [...] OTCs Manifest Refraction #1 (Auto) Sphere Cylinder [place] Add Right eye -0.25 Sphere Left eye -0.25 +0.25 141 Manifest Refraction #2 Sphere Cylinder [place] Add Right eye -0.25 Sphere 20/20 +1.50 Left eye -0.25 Sphere 20/20 +1.50 Care Teams Steam Generating Powerplant Mechanic Relationship Specialty Start Date End Date Ramiro Cardenas MD [address] [place] [address] PCP - General 04/24/09 documented as of this encounter
--- OUTSIDE RECORDS SUMMARY | 2024-05-27 17:56 | XMS_ITS | Encounter Summary ---
Author Organization [facility] Address [address] [place] [address] Care Team Providers Care Archery Instructor Name Role Phone Ramiro Cardenas MD Primary Care Provider [phone] Reason for Visit * Auth/Cert Specialty Diagnoses / Procedures [facility] Referred To Contact Diagnoses 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 [H25.811] Procedures MT XCAPSL CTRC RMVL INSJ IO LENS PROSTH W/O ECP EXTRACTION, CATARACT, EXTRACAPSULAR, WITH IOL INSERTION ORA - Toric Referral ID Status Reason Start Date Expiration Date Visits Re quested Visits Authorized [id number] 1 1 Encounter Details Date Type Department Care Team (Late st Contact Info) Description 05/03/2022 11:32 EDT Anesthesia Event [facility] Operating Room [address] [place] [address] Shahida Zelaya MD [address] [phone] Trish Paz CRNA [address] [phone] Anesthesia Record Procedure Summary Procedure [...] without imunotherapy. 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 . ?? Obesity. [...] mg documented in this encounter Care Teams Archery Instructor Relationship Specialty Start Date End Date Ramiro Cardenas MD [address] [place] [address] PCP - General 04/24/09 documented as of this encounter
--- OUTSIDE RECORDS SUMMARY | 2024-05-27 17:56 | XMS_ITS | Encounter Summary ---
Author Organization [facility] Address [address] [place] [address] Care Team Providers Care Provider Relations Manager Name Role Phone Ramiro Cardenas MD Primary Care Provider [phone] Reason for Visit * Reason Onset Date Comments Appointment Related 12/28/2021 Encounter Details Date Type Department Care Team (Late st Contact Info) Description 12/28/2021 Telephone [facility] [address] [place], [place] [phone] Ezequiel Andrea MD [address] [place] [phone] Appointment Related Social History Tobacco Use Types [...] on filedocumented in this encounter Care Teams Provider Relations Manager Relationship Specialty Start Date End Date Ramiro Cardenas MD [address] [place], [place] [phone] PCP - General 04/24/09 documented as of this encounter
--- OUTSIDE RECORDS SUMMARY | 2024-05-27 17:56 | XMS_ITS | Encounter Summary ---
Author Organization [facility] Address [address] [place] [address] Care Team Providers Care Real Estate Legal Assistant Name Role Phone Ramiro Cardenas MD Primary Care Provider [phone] Encounter Details Date Type Department Care Team (Latest Contact Info) Description 02/26/2022 Prep for Procedure [facility] Ophthalmology [facility] [address] [place], [place] [phone] Ezequiel Andrea MD [address] [place] [phone] Combined forms of age-related cataract of left [...] 02/27/2022 documented in this encounter Care Teams Real Estate Legal Assistant Relationship Specialty Start Date End Date Ramiro Cardenas MD [address] [place], [place] [phone] PCP - General 04/24/09 documented as of this encounter
--- OUTSIDE RECORDS SUMMARY | 2024-05-27 17:56 | XMS_ITS | Encounter Summary ---
Author Organization [facility] Address [address] [place] [address] Care Team Providers Care Platform Engineer Name Role Phone Ramiro Cardenas MD Primary Care Provider [phone] Encounter Details Date Type Department Care Team (Late st Contact Info) Description 07/25/2022 Lab Requisition [facility] Pathology & Laboratory Medicine - [facility] [address] [place] [address] Outr Resulting Lab, Provider Social History Tobacco [...] 4th Generation Negative Negative 07/26/2022 10:04 EST [facility] Comment:If acute HIV-1 infec tion is suspected in a high risk patient, submit plasma specimen for HIV-1 RNA quantitation test. Blood VENOUS BLOOD / Unknown 07/25/2022 10:14 EST 07/25/2022 21:28 EST Narrative [facility] - 07/26/2022 10:04 EST Fourth Generation assay performed on the Siemens Centaur XPT. Provider Outr Resulting Lab IMMUNOLOGY A ND SEROLOGY ORDERABLES [facility] [address] [place] [address] documented in this encounter Visit Diagnoses Not on filedocumented in this encounter Care Teams Platform Engineer Relationship Specialty Start Date End Date Ramiro Cardenas MD [address] [place] [address] PCP - General 04/24/09 documented as of this encounter
--- OUTSIDE RECORDS SUMMARY | 2024-05-27 17:56 | XMS_ITS | Encounter Summary ---
Author Organization [facility] Address [address] [place] [address] Care Team Providers Care Director Digital Analytics Name Role Phone Ramiro Cardenas MD Primary Care Provider [phone] Encounter Details Date Type Department Care Team (Latest Contact Info) Description 02/26/2022 Prep for Procedure [facility] Ophthalmology [facility] [address] [place], [place] [phone] Ezequiel Andrea MD [address] [place] [phone] Combined forms of age-related cataract of right [...] 02/27/2022 documented in this encounter Care Teams Director Digital Analytics Relationship Specialty Start Date End Date Ramiro Cardenas MD [address] [place], [place] [phone] PCP - General 04/24/09 documented as of this encounter
--- OUTSIDE RECORDS SUMMARY | 2024-05-27 17:56 | XMS_ITS | Encounter Summary ---
Author Organization [facility] Address [address] [place] [address] Care Team Providers Care Handwriting Expert Name Role Phone Ramiro Cardenas MD Primary Care Provider [phone] Encounter Details Date Type Department Care Team (Latest Contact Info) Description 04/03/2022 Documentation Visit [facility] Ophthalmology [facility] [address] [place], [place] [phone] Ezequiel Andrea MD [address] [place] [phone] Combined forms of age-related cataract of right [...] right eye Procedure date: 05/03/22 Procedure location: Lens type: SN6AT4 Lens power: 20.0 Electronically [...] W/O IOL BIOMETRY (04/09/2022 17:00 EDT) Narrative [facility] POINT OF CARE - 04/09/2022 17:00 EDT Optical Coherence Biometry Calculations Date of original biometry: 02/27/22 Read date: 04/09/22 Indicated eye: the right eye Procedure date: 05/03/22 Procedure location: Lens type: SN6AT4 ?? Lens power: 20.0 Electronically Signed: Ezequiel Andrea MD 04/09/22 Ezequiel Andrea MD OPHTH ULTRASOUND [facility] POINT OF CARE documented in this encounter Visit Diagnoses Diagnosis Combined forms of age-related cataract of right eye- Primary Other and combined forms of senile cataract documented in this encounter Care Teams Handwriting Expert Relationship Specialty Start Date End Date Ramiro Cardenas MD [address] [place] [address] PCP - General 04/24/09 documented as of this encounter
--- OUTSIDE RECORDS SUMMARY | 2024-05-27 17:56 | XMS_ITS | Encounter Summary ---
Author Organization [facility] Address [address] [place] [address] Care Team Providers Care Oral Surgery Physician Name Role Phone Ramiro Cardenas MD Primary Care Provider [phone] Encounter Details Date Type Department Care Team (Latest Contact Info) Description 04/03/2022 Documentation Visit [facility] Ophthalmology [facility] [address] [place], [place] [phone] Ezequiel Andrea MD [address] [place] [phone] Combined forms of age-related cataract of left [...] left eye Procedure date: 05/10/22 Procedure location: [facility] Lens type: SN6AT5 Lens power: 18.5 [...] W/O IOL BIOMETRY (04/09/2022 17:02 EDT) Narrative [facility] POINT OF CARE - 04/09/2022 17:02 EDT Optical Coherence Biometry Calculations Date of original biometry: 02/27/22 Read date: 04/09/22 Indicated eye: the left eye Procedure date: 05/10/22 Procedure location: [facility] Lens type: SN6AT5 ?? Lens power: 18.5 Electronically Signed: Ezequiel Andrea MD 04/09/22 Ezequiel Andrea MD OPHTH ULTRASOUND [facility] POINT OF CARE documented in this encounter Visit Diagnoses Diagnosis Combined forms of age-related cataract of left eye- Primary Other and combined forms of senile cataract documented in this encounter Care Teams Oral Surgery Physician Relationship Specialty Start Date End Date Ramiro Cardenas MD [address] [place] [address] PCP - General 04/24/09 documented as of this encounter
--- OUTSIDE RECORDS SUMMARY | 2024-05-27 17:56 | XMS_ITS | Encounter Summary ---
Author Organization [facility] Address [address] [place] [address] Care Team Providers Care Buyer Intern Name Role Phone Ramiro Cardenas MD Primary Care Provider [phone] Encounter Details Date Type Department Care Team (Late st Contact Info) Description 07/25/2022 Lab Requisition [facility] Pathology & Laboratory Medicine - [facility] [address] [place] [address] Outr Resulting Lab, Provider Social History Tobacco [...] Syphilis Serology Negative Negative 07/26/2022 11:38 EST [facility] Blood VENOUS BLOOD / Unknown 07/25/2022 10:14 EST 07/25/2022 21:28 EST Provider Outr Resulting Lab IMMUNOLOGY A ND SEROLOGY ORDERABLES [facility] [address] [place] [address] documented in this encounter Visit Diagnoses Not on filedocumented in this encounter Care Teams Buyer Intern Relationship Specialty Start Date End Date Ramiro Cardenas MD [address] [place], [place] [phone] PCP - General 04/24/09 documented as of this encounter
--- OUTSIDE RECORDS SUMMARY | 2024-05-27 17:56 | XMS_ITS | Encounter Summary ---
Author Organization [facility] Address [address] [place] [address] Care Team Providers Care Sausage Canner Name Role Phone Ramiro Cardenas MD Primary Care Provider [phone] Reason for Visit * Reason Onset Date Comments Post-OP Follow Up 05/16/2022 POW#1 CE PCIOL , left eye Encounter Details Date Type Department Care Team (Latest Contact Info) Description 05/16/2022 9:15 EDT Post-op Visit [facility] Ophthalmology [facility] [address] [place] [address] Ezequiel Andrea MD [address] [place] [phone] Cataract extraction status of eye, left (Primary [...] pole Refraction Manifest Refraction (Auto) Sphere Cylinder [place] Right -0.25 +0.25 175 Left -0.25 +0.25 [...] posterior pole Manifest Refraction (Auto) Sphere Cylinder [place] Right eye -0.25 +0.25 175 Left eye -0.25 +0.25 143 Care Teams Sausage Canner Relationship Specialty Start Date End Date Ramiro Cardenas MD [address] [place] [address] PCP - General 04/24/09 documented as of this encounter
--- OUTSIDE RECORDS SUMMARY | 2024-05-27 17:56 | XMS_ITS | Encounter Summary ---
Author Organization [facility] Address [address] [place] [address] Care Team Providers Care Hide Inspector And Sorter Name Role Phone Ramiro Cardenas MD Primary Care Provider [phone] Encounter Details Date Type Department Care Team [...] on filedocumented in this encounter Care Teams Hide Inspector And Sorter Relationship Specialty Start Date End Date Ramiro Cardenas MD [address] [place] [address] PCP - General 04/24/09 documented as of this encounter
--- OUTSIDE RECORDS SUMMARY | 2024-05-27 17:56 | XMS_ITS | Encounter Summary ---
Author Organization [facility] Address [address] [place] [address] Care Team Providers Care Jeep Driver Name Role Phone Ramiro Cardenas MD Primary Care Provider [phone] Encounter Details Date Type Department Care Team (Late st Contact Info) Description 11/16/2010 Results Only [facility] Laboratory Services - [facility] ([facility] [address] [place], [place] [address] Rodríguez Ramirez MD [address] [place] [address] Social History Tobacco Use Types Packs/Day Years [...] ? KALIE, CHARLES ? Accession #: ? [id number] ? : ? 1975 (Age: 34) ??M ? Collect Date: ? 11/16/2010 ? Location: ? [facility] ? Receive Date: ? 11/16/2010 ? Provider: RODRÍGUEZ RAMIREZ MD ? Copy to: JYOTI QUIÑONES TRAVELING CLERK ? ROBERT FINE MD ? Final Pathologic [...] ??The remainder of the tissue is unremarkable. ??Special Trackwork Blacksmith ?? sections are submitted in one cassette [...] remainder of the specimen is unremarkable. ? Special Trackwork Blacksmith sections of the specimen are submitted in one cassette as (B). ?? (Dr. Segovia)/fauziak ? End of Report ? [facility] 11/16/2010 11/16/2010 6:3 4 EST Rodríguez Ramirez MD PATHOLOGY ORDERABLE S Performing Organization Address City/State/[facility] Co de Phone Number [facility] [address] [place] [address] documented in this encounter Visit Diagnoses Not on filedocumented in this encounter Care Teams Jeep Driver Relationship Specialty Start Date End Date Ramiro Cardenas MD [address] [place] [address] PCP - General 04/24/09 documented as of this encounter
--- OUTSIDE RECORDS SUMMARY | 2024-05-27 17:56 | XMS_ITS | Encounter Summary ---
Author Organization [facility] Address [address] [place] [address] Care Team Providers Care Household Cook Name Role Phone Ramiro Cardenas MD Primary Care Provider [phone] Reason for Referral * Specialty Diagnoses / Procedures Referred By Janak holland Referred To Contact Ezequiel Andrea MD [address] [place] [address] Referral ID Status Reason Start Date Expiration [...] age-related cataract of right eye [H25.811] Procedures [place] XCAPSL CTRC RMVL INSJ IO LENS PROSTH W/O ECP EXTRACTION, CATARACT, EXTRACAPSULAR, WITH IOL INSERTION ORA - Toric Referral ID Status Reason Start Date Expiration Date Visits Re quested Visits Authorized [id number] 1 1 Encounter Details Date Type Department Care Team (Latest Contact Info) Description 05/03/2022 9:54 EDT - 05/03/2022 12:57 EDT Hospital Encounter [facility] Operating Room [address] [place] [address] Ezequiel Andrea MD [address] [place] [address] Discharge Disposition: Home or Self [...] not hesitate to call the office at [phone]. documented in this encounter Medications at Time [...] Code Departure Means Destination Home or Self Nursing Home documented in this encounter H&P Notes * Ezequiel Andrea MD - 05/03/2022 8948 EDT The preoperative history and physical which [...] Toric (R) Operative Note Date: 05/03/2022 Location: [facility] OR Name: Charles Nick, : [...] SN6AT4 20.0 D, right eye. SURGEON: Ezequiel Andrae MD OPTIMIZATION MANAGER: DANIELA Lyn ANESTHESIA: Topical and MAC [...] no complications. The patient returned to the caregivers homecare area alert and ingood condition. * Preprocedure Instructions - Lisa Kemp RN - 05/02/2022 0903 EDT Charles Nick has been instructed as [...] EDT) 05/16/2022 10:4 4 EDT Scan 2 Electronics Installer PROCEDURE/MINOR [place]EX[place] GICAL ORDERABLES * ECG REPORT - SCANNED (05/07/2022 9:47 EDT) 05/07/2022 9:47 EDT Scan 2 Electronics Installer PROCEDURE/MINOR [place] GICAL ORDERABLES * (ABNORMAL) POCT GLUCOSE, INTERFACED (05/03/2022 12:36 EDT) Glucose, POC 145(H) 70 - 100 mg/dL 05/03/2022 13:46 EDT [facility] HN LAB POC COMMENT (GLUCOSE) Test Performed in DSCU 05/03/2022 13:46 EDT [facility] Blood CAPILLARY BLOOD / Unknown 05/03/2022 12:36 EDT 05/03/2022 13:45 EDT Ezequiel Andrea MD POINT OF CARE TEST Yoel GRANGER Performing Organization Address [facility] Co de Phone Number [facility] [address] [place] [address] * (ABNORMAL) POCT GLUCOSE, INTERFACED (05/03/2022 11:05 EDT) Glucose, POC 169(H) 70 - 100 mg/dL 05/03/2022 11:07 EDT [facility] HN LAB POC COMMENT (GLUCOSE) Test Performed in SDS 05/03/2022 11:07 EDT [facility] Blood CAPILLARY BLOOD / Unknown 05/03/2022 11:05 EDT 05/03/2022 11:07 EDT Ezequiel Andrea MD POINT OF CARE TEST O ELKIN Performing Organization Address City/[facility]/ZIP Co de Phone Number [facility] [address] [place] [address] documented in this encounter Visit Diagnoses Diagnosis [...] Provider: Francisca Rosas RN)1101 (Given - Provider: Frnacisca Rosas RN) povidone-iodine 5 % ophthalmic solution [...] 05/03/2022 documented in this encounter Care Teams Household Cook Relationship Specialty Start Date End Date Ramiro Cardenas MD [address] [place] [address] PCP - General 04/24/09 documented as of this encounter
--- OUTSIDE RECORDS SUMMARY | 2024-05-27 17:56 | XMS_ITS | Encounter Summary ---
Author Organization [facility] Address [address] [place] [address] Care Team Providers Care Broadcast Field Supervisor Name Role Phone Ramiro Cardenas MD Primary Care Provider [phone] Reason for Visit * Reason Onset Date Comments Post-OP Follow Up 05/03/2022 POD#0 CE PCIOL , right eye Encounter Details Date Type Department Care Team (Latest Contact Info) Description 05/03/2022 13:45 EDT Post-op Visit [facility] Ophthalmology [facility] [address] [place], [place] [phone] Ezequiel Andrea MD [address] [place] [phone] Cataract extraction status of eye, right (Primary [...] Notes * Ezequiel Andrea MD - 05/03/2022 2319 EDT Chief Complaint: Pseudophakia, Cataract Post-Op Day [...] my own HPI and have reviewed the [facility]'s ROS as well. I personally completed [...] hazy view to posterior pole Care Teams Broadcast Field Supervisor Relationship Specialty Start Date End Date Ramiro Cardenas MD [address] [place] [address] PCP - General 04/24/09 documented as of this encounter
--- OUTSIDE RECORDS SUMMARY | 2024-05-27 17:56 | XMS_ITS | Encounter Summary ---
Author Organization [facility] Address [address] [place] [address] Care Team Providers Care Premium Card Cancellation Clerk Name Role Phone Ramiro Cardeans MD Primary Care Provider [phone] Reason for Visit * Reason Comments Cataract Cataract evaluation - both eyes * Consult, Test and Treat (Routine) - Authorization Not Required Specialty Diagnoses / Procedures Referred By Contnina t Referred To Contact Ophthalmology Diagnoses Cortical age-related cataract, bilateral Mohan Butcher, OD [address] [place] [address] Ezequiel Andrea MD [address] [place] [phone] Referral ID Status Reason Start Date Expiration Date Visits Requested Visits Authorized [id number] Authorization Not Required 1 1 Encounter Details Date Type Department Care Team (Late st Contact Info) Description 02/13/2022 10:00 EDT Office Visit [facility] Ophthalmology [address] [phone] Ezequiel Andrea MD [address] [place] [phone] Social History Tobacco Use Types Packs/Day [...] (right eye), May 10 (left eye) at [facility] (check in at Patient Registration). The Hospital [...] Endocrine: Diabetes Hematologic: NL Immunologic: Drug Allergy Welder/Installer: Exposures: None Other: Attestation: Base Eye Exam [...] no retinopathy Refraction Wearing Rx Sphere Cylinder [place] Right -5.00 +1.00 133 Left -4.75 +1.50 082 Age: 1yrs Manifest Refraction (Auto) Sphere Cylinder [place] Dist [place] Right -7.25 +2.00 085 Left -6.00 +2.75 073 Manifest Refraction #2 Sphere Cylinder [place] Dist VA Right -5.00 +1.00 135 20/50-1 [...] no Risk for anisometropia: low Refractive aim: [place] Referred by: Mohan Butcher, OD ([facility]) 2. Diabetes mellitus Right eye: [...] n o retinopathy Wearing Rx Sphere Cylinder [place] Right eye -5.00 +1.00 133 Left eye -4.75 +1.50 082 Age: 1yrs Manifest Refraction #1 (Auto) Sphere Cylinder [place] Dist [place] Right eye -7.25 +2.00 085 Left eye -6.00 +2.75 073 Manifest Refraction #2 Sphere Cylinder [place] Dist [place] Right eye -5.00 +1.00 135 20/50-1 Left eye -5.25 +1.50 080 20/25 Care Teams Premium Card Cancellation Clerk Relationship Specialty Start Date End Date Ramiro Cardenas MD [address] [place] [address] PCP - General 04/24/09 documented as of this encounter
--- OUTSIDE RECORDS SUMMARY | 2024-05-27 17:56 | XMS_ITS | Encounter Summary ---
Author Organization [facility] Address [address] [place] [address] Care Team Providers Care Sealing Machine Operator Name Role Phone Ramiro Cardenas MD Primary Care Provider [phone] Encounter Details Date Type Department Care Team [...] on filedocumented in this encounter Care Teams Sealing Machine Operator Relationship Specialty Start Date End Date Ramiro Cardenas MD [address] [place] [address] PCP - General 04/24/09 documented as of this encounter
--- OUTSIDE RECORDS SUMMARY | 2024-05-27 17:56 | XMS_ITS | Encounter Summary ---
Author Organization [facility] Address [address] [place] [address] Care Team Providers Care Ux Consultant Name Role Phone Ramiro Cardenas MD Primary Care Provider [phone] Reason for Visit * Reason Onset Date Comments Medication Problem 05/01/2022 re: pre/post- op drops at pharmacy Encounter Details Date Type Department Care Team (Late st Contact Info) Description 05/01/2022 Telephone [facility] - [place] [address] [place], [place] [address] Ezequiel Andrea MD [address] [place] [phone] Medication Problem (re: pre/post-op drops at pharmacy) Social History Tobacco Use Types Packs/Day Years Used Date Smoking Tobacco: Never Smokeless Tobacco: Never Sex and Gender Information Value Date Recorded Sex Assigned at Not on file Gender Identity Male 05/03/2022 9:53 EDT Sexual Orientation Not on file documented as of this encounter Miscellaneous Notes * Telephone Encounter - Katelynn Mejia COA - 05/01/2022 1651 EDT Called pharmacy to confirm post-op drops ordered 02/27/22 available for patient documented in this encounter Plan of Treatment Not on file documented as of this encounter Visit Diagnoses Not on filedocumented in this encounter Care Teams Ux Consultant Relationship Specialty Start Date End Date Ramiro Cardenas MD [address] [place], [place] [phone] PCP - General 04/24/09 documented as of this encounter
--- OUTSIDE RECORDS SUMMARY | 2024-05-27 17:56 | XMS_ITS | Encounter Summary ---
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] Procedures RI XCAPSL CTRC RMVL INSJ IO LENS PROSTH W/O ECP EXTRACTION, CATARACT, EXTRACAPSULAR, WITH IOL INSERTION ORA - Toric Referral ID Status Reason Start Date Expiration Date Visits Re quested Visits Authorized [id number] 1 1 Encounter Details Date Type Department Care Team (Late st Contact Info) Description 05/03/2022 11:15 EDT - 05/03/2022 12:00 EDT Surgery [facility] Operating Room [address] [place] [address] Ezequiel Andrea MD [address] [place] [phone] EXTRACTION, CATARACT, EXTRACAPSULAR, WITH IOL INSERTION ORA - Toric [[id number] (CPT??)] Surgery Details Date/Time Status Location OR Service Patient Class Case Cl ass Case Type Trauma Case? 05/03/22 1115 Posted [facility] OR 04 Ophthalmology Hos pital Outpatient [...] not hesitate to call the office at [phone]. documented in this encounter Medications at Time [...] Code Departure Means Destination Home or Self Penitentiary documented in this encounter H&P Notes * Ezequiel Andrea MD - 05/03/2022 8327 EDT The preoperative history and physical which [...] Toric (R) Operative Note Date: 05/03/2022 Location: [facility] OR Name: Charles Nick, : 1975, PREOPERATIVE [...] D, right eye. SURGEON: Ezequiel Andrea MD V BELT MOLD ASSEMBLER AND CURER: DANIELA Lny ANESTHESIA: Topical and MAC ESTIMATED BLOOD LOSS: [...] operative eye in the pre-operative area. A Reesio marker was used to identify the 0, [...] no complications. The patient returned to the rn wound care area alert and ingood condition. * Preprocedure Instructions - Lisa Kemp RN - 05/02/2022 0989 EDT Charles Nick has been instructed as [...] EDT) 05/16/2022 10:4 4 EDT Scan 2 [employer] PROCEDURE/MINOR [place]EXA GICAL ORDERABLES * ECG REPORT - SCANNED (05/07/2022 9:47 EDT) 05/07/2022 9:47 EDT Scan 2 [employer] PROCEDURE/MINOR [place] GICAL ORDERABLES * (ABNORMAL) POCT GLUCOSE, INTERFACED (05/03/2022 12:36 EDT) Glucose, POC 145(H) 70 - 100 mg/dL 05/03/2022 13:46 EDT [facility] HN LAB POC COMMENT (GLUCOSE) Test Performed in DSCU 05/03/2022 13:46 EDT [facility] Blood CAPILLARY BLOOD / Unknown 05/03/2022 12:36 EDT 05/03/2022 13:45 EDT Ezequiel Andrea MD POINT OF CARE TEST O ELKIN Performing Organization Address City/[facility] Co de Phone Number [facility] [address] [place], [place] [id number] * (ABNORMAL) POCT GLUCOSE, INTERFACED (05/03/2022 11:05 EDT) Glucose, POC 169(H) 70 - 100 mg/dL 05/03/2022 11:07 EDT [facility] HN LAB POC COMMENT (GLUCOSE) Test Performed in [facility] 05/03/2022 11:07 EDT [facility] Blood CAPILLARY BLOOD / Unknown 05/03/2022 11:05 EDT 05/03/2022 11:07 EDT Ezequiel Andrea MD POINT OF CARE TEST O ELKIN [facility] [address] [place] [address] documented in this encounter Visit Diagnoses Diagnosis [...] 05/03/2022 documented in this encounter Care Teams Judge'S Clerk Relationship Specialty Start Date End Date Ramiro Cardenas MD [address] [place] [address] PCP - General 04/24/09 documented as of this encounter
--- OUTSIDE RECORDS SUMMARY | 2024-05-27 17:56 | XMS_ITS | Encounter Summary ---
Author Organization [facility] Address [address] [place] [address] Care Team Providers Care Hospice Music Therapist Name Role Phone Ramiro Cardenas MD Primary Care Provider [phone] Encounter Details Date Type Department Care Team [...] on filedocumented in this encounter Care Teams Hospice Music Therapist Relationship Specialty Start Date End Date Ramiro Cardenas MD [address] [place] [address] PCP - General 04/24/09 documented as of this encounter
--- OUTSIDE RECORDS SUMMARY | 2024-05-27 17:57 | XMS_ITS | Encounter Summary ---
Author Organization [facility] Address [facility] [place] [address] Care Team Providers Care Hospital Medical Biller Name Role Phone Olga Hoffman APRN Primary Care Provider [phone] Encounter Details Date Type Department Care Team (Latest Contact Info) Description 05/07/2024 Travel Social History Tobacco Use Types Packs/Day Years Used Date Smoking Tobacco: Never Smokeless Tobacco: Never Alcohol Use Standard Drinks/Week Comments Not Currently 0 (1 standard drink = 0.6 oz pur e alcohol) [facility] Utilities Answer Date Recorded In [...] any time in the past 12 m [facility], were you homeless or [...] Care Team (Late st Contact Info) Description 05/28/2024 8:00 AM EDT Office Visit Hematology/Oncology at [address] [phone] Rodriguez Fowler MD [facility] [place] [address] Sherry Cedillo APRN [address] [place] [address] HEMATOLOGY AND ONCOLOGY [place], [place] [phone] 05/28/2024 8:30 AM EDT Infusion Hematology Oncology at [address] [phone] 05/28/2024 9:30 AM EDT Clinical Support Hematology/Oncology at [address] [phone] [facility] [place] [address] documented as of this encounter Visit Diagnoses Not on filedocumented in this encounter Care Teams Hospital Medical Biller Relationship Specialty Start Date End Date Olga Hoffman, SUPERVISOR ADULT EDUCATION [address] [place] [address] PCP - General Family Medicine 10/30/22 documented as of this encounter
--- OUTSIDE RECORDS SUMMARY | 2024-05-27 17:57 | XMS_ITS | Encounter Summary ---
Author Organization [facility] [place] [address] Care Team Providers Care Stabilizing Machine Operator Name Role Phone Olga Hoffman APRN Primary Care Provider +1 [phone] Reason for Referral * Diagnostic Test (Routine) - New Request Specialty Diagnoses / Procedures Referred By Contac t Referred To Contact Radiology Diagnoses Perihepatic abscess Procedures IR Drain Check/Change/Remove Gary Comer MD [facility] [place] [address] [place] [address] Referral ID Status Reason Start Date Expiration Date Visits Requested Visits Authorized [id number] New Request Specialty Service Requested 05/05/2024 11/05/2025 1 1 * Diagnostic Test (Routine) - New Request Specialty Diagnoses / Procedures Referred By Contac t Referred To Contact Radiology Diagnoses Perihepatic abscess Procedures IR Drain Check/Change/Remove Silvio Wheeler MD [facility] [place] [address] [place] [address] Referral ID Status Reason Start Date Expiration Date Visits Requested Visits Authorized [id number] New Request Specialty Service Requested 04/21/2024 10/22/2025 1 1 Reason for Visit * Diagnostic Test (Routine) - New Request Specialty Diagnoses / Procedures Referred By Janak holland Referred To Contact Radiology Diagnoses Perihepatic abscess Procedures IR Drain Check/Change/Remove Silvio Wheeler MD [facility] [place] [address] [facility] [place] [address] Referral ID Status Reason Start Date Expiration Date Visits Requested Visits Authorized [id number] New Request Specialty Service Requested 04/21/2024 10/22/2025 1 1 Encounter Details Date Type Department Care Team (Latest Contact Info) Description 05/05/2024 8:41 AM EDT - 05/05/2024 11:59 PM EDT Hospital Encounter [place] [address] Silvio Wheeler MD [facility] [place] [address] Perihepatic abscess Discharge Disposition: Home Social History Tobacco Use Types Packs/Day Years Used Date Smoking Tobacco: Never Smokeless Tobacco: Never Alcohol Use Standard Drinks/Week Comments Not Currently 0 (1 standard drink = 0.6 oz pur e alcohol) [facility] Utilities Answer Date Recorded In the past 12 months has [employer], gas, oil, or water [employer] threatened to shut off services in your [...] any time in the past 12 m [facility], were you homeless or living in a penitentiary (including now)? No 03/25/2024 DH IPV Inpatient [...] is during regular office hours, please call [phone]. If it is after regular office hours, or on weekends or holidays, please call [phone] and ask to speak to the Stem Setter parts counter sales person for Interventional Radiology. XX You have received [...] or foul drainage occurs, please contact your MMarybeth Preciado Revised 07/01/19 Drainage Record NAME: Date of Surgery: Date: Time: If more than one drain, which one: Drainage Amount (per drain) Total Amount (per drain; in 24 hours) documented in this encounter Medications at Time of Discharge Medication Sig Dispensed Refills Start Date End Date hhekqn-pvgdwoeh-eplwt se (Zenpep) 40,000-126,000- 168,[address] capsule [...] 2 times daily. 30 tablet 03/08/2024 Insulin [place], Disposable, (BD Ultra-Fine Micro Pen Needle) 32 gauge x 1/4 Needle 1 each by [facility]Non-Drug; Combo Route) route 2 times daily. 300 [...] 2 times daily. 180 tablet 3 02/15/2021 ergocalciferoL, vitamin D2, (vitamin D2) 50,000 unit capsuleIndications:Vi tamin D deficiency Take 1 capsule by mouth once a week. 4 capsule 3 05/10/2024 05/21/2024 documented as of this encounter Progress Notes * Jenelle Carcamo RN - 05/05/2024 11:00 AM EDT [facility] NURSING DATABASE Name: Charles Nick Date of : 1975 AGE: 48 y.o. Address: [facility] [address] [facility] [address] (home) [phone] (work) Mobile: Telephone Information: Referring Provider: Silvio Wheeler REASON FOR VISIT: Order Questions Answers Where will study be performed? [facility] Radiology [120] To be scheduled Next [...] Questions Answers Where will study be performed? [facility] Radiology [120] To be scheduled Next [...] daily for 14 days. 14 tablet 0 tvibwt-ozoejjca-cqknzoa (Zenpep) 40,000-126,000- 168,[address] capsule Take [...] 2 times daily. 30 tablet 0 Insulin [place], Disposable, (BD Ultra-Fine Micro Pen Needle) 32 [...] CT Guided Drain Pancreatic/Peripancreatic Joe Quintero DO [facility] RAD CT SCAN IR BIOPSY LIVER PERCUTANEOUS - NON-FOCAL PARENCHYMA 01/07/2023 IR Biopsy Liver Percutaneous 01/07/2023 Juan Wright MD [facility] INTERVENTIONL RAD IR DRAIN CHECK/CHANGE/REMOVE 04/08/2024 IR Drain Check/Change/Remove 04/08/2024 Juan Wright MD [facility] INTERVENTIONL RAD IR DRAIN CHECK/CHANGE/REMOVE 04/21/2024 IR Drain Check/Change/Remove 04/21/2024 Silvio Wheeler MD [facility] INTERVENTIONL RAD IR MEDIPORT PLACEMENT 04/26/2024 IR Mediport Placement 04/26/2024 Latonia Oscar PA [facility] INTERVENTIONL RAD PRO PART REMV PANC, PROX+REMV DUOD+ANAST N/A 03/01/2024 @FAIZAN PROCEDURE (WRVU 52.84) performed by Rudi Hernandez MD at [facility] MAIN OR PRO TRANSFER SKIN PEDICLE FLAP N/A 03/01/2024 TRANSFER, INTERMEDIATE, ANY PEDICLE FLAP, ANY LOCATION (WRVU 4.77) performed by Rudi Hernandez MD at [facility] MAIN OR Social History and Habits: [...] AM EDT Office Visit Hematology/Oncology at [address] [phone] Rodriguez Fowler MD [facility] [place] [address] Sherry Cedillo APRN [address] [place] [address] [place] [address] 05/28/2024 8:30 AM EDT Infusion Hematology Oncology at [address] [phone] 05/28/2024 9:30 AM EDT Clinical Support Hematology/Oncology at [address] [phone] [address] [facility] DR [place] [address] Scheduled Orders Name Type Priority Associated Diagnoses [...] sterile barrier technique was used throughout. ?? Senior Linux Systems Engineer fluoroscopic images were obtained. ??Contrast was injected [...] mLs documented in this encounter Care Teams Stabilizing Machine Operator Relationship Specialty Start Date End Date Olga Hoffman APRN [address] [place] [address] PCP - General Family Medicine 10/30/22 documented as of this encounter
--- OUTSIDE RECORDS SUMMARY | 2024-05-27 17:57 | XMS_ITS | Encounter Summary ---
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 No 03/25/2024 DH IPV [...] this encounter Progress Notes * Shahida Zamudio, SECURITY ADMINISTRATOR - 05/05/2024 8:00 AM EDT [facility] NEPH[facility]OLOGY [facility]INIC 05/05/2024 PRIMARY CARE PROVIDER: Olga Hoffman APRN DIRECTOR PROCESS: Dr. 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 He was last seen by Dr. Maxwell in December for 2022 and presents today for routine follow up. Charles notes original diagnosis of membranous nephropathy dating back many years ago in [place]. He presented with edema that was progressive [...] 03/25/2024 CT Guided Drain Pancreatic/Peripancreatic Joe Quintero, [facility] RAD CT SCAN IR BIOPSY LIVER PERCUTANEOUS - NON-FOCAL PARENCHYMA 01/07/2023 IR Biopsy Liver Percutaneous 01/07/2023 Juan Wright MD [facility] INTERVENTIONL RAD IR DRAIN CHECK/CHANGE/REMOVE 04/08/2024 IR Drain Check/Change/Remove 04/08/2024 Juan Wright MD [facility] INTERVENTIONL RAD IR DRAIN CHECK/CHANGE/REMOVE 04/21/2024 IR Drain Check/Change/Remove 04/21/2024 Silvio Wheeler MD [facility] INTERVENTIONL RAD IR DRAIN CHECK/CHANGE/REMOVE 05/05/2024 IR Drain Check/Change/Remove 05/05/2024 Gary Comer MD [facility] INTERVENTIONL RAD IR MEDIPORT PLACEMENT 04/26/2024 IR Mediport Placement 04/26/2024 Latonia Oscar PA [facility] INTERVENTIONL RAD PRO PART REMV PANC, PROX+REMV DUOD+ANAST N/A 03/01/2024 @WHIPPLE PROCEDURE (WRVU 52.84) performed by Rudi Hernandez MD at [facility] MAIN OR PRO TRANSFER SKIN PEDICLE FLAP N/A 03/01/2024 TRANSFER, INTERMEDIATE, ANY PEDICLE FLAP, ANY LOCATION (WRVU 4.77) performed by Rudi Hernandez MD at [facility] MAIN OR MEDICATIONS: Current Outpatient Medications Medication Sig Dispense Refill gibtis-ngmhulpx-zgifvum (Zenpep) 40,000-126,000- 168,[address] capsule Take [...] 2 times daily. 30 tablet 0 Insulin [place], Disposable, (BD Ultra-Fine Micro Pen Needle) 32 gauge x 1/4 Needle 1 each by [facility]Non-Drug; Combo Route) route 2 times daily. 300 [...] and mineral - PTH normal. Calcium normal. 98-JP-Pworayh D deficient. Plan for 12 week course [...] plan, and coordinating care. Shahida Zamudio, MSN, HANDKERCHIEF FOLDER-C [facility] Nephrology and Hypertension [address] [address] documented in this encounter Plan of Treatment Upcoming Encounters Date Type Department Care Team (Late st Contact Info) Description 05/28/2024 8:00 AM EDT Office Visit Hematology/Oncology at [address] [phone] Rodriguez Fowler MD [facility] [place] [address] Sherry Cedillo APRN [address] [place] [address] DR HEMATOLOGY AND ONCOLOGY [place] [id number] 05/28/2024 8:30 AM EDT Infusion Hematology Oncology at [address] [phone] 05/28/2024 9:30 AM EDT Clinical Support Hematology/Oncology at [address] [phone] Leah Rose, RD [facility] DR [place] [address] documented as of this encounter Visit Diagnoses Diagnosis Vitamin D deficiency Unspecified vitamin D deficiency Essential hypertension Unspecified essential hypertension 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
--- OUTSIDE RECORDS SUMMARY | 2024-05-27 17:57 | XMS_ITS ---
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 Discussed increase in lasix [...] 1 , Cycle 1 - Planned for 05/28/2024) Next Day (Day 3, Cycle 1 - Planned for 05/30/2024) fluorouraciL (ADRUCIL)fluorouraciL (AdruciL) in sodium chloride 0.9% [...] treatments are documented for this patient in [facility]. Treatments may have been administered in another system. 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
--- OUTSIDE RECORDS SUMMARY | 2024-05-27 17:57 | XMS_ITS | Encounter Summary ---
Author Organization [facility] Address [facility] [place] [address] Care Team Providers Care Electrician Helper Name Role Phone DaltonAbigailOlgaevy Bell APRN Primary Care Provider +1 -[phone] Reason for Visit * Reason Comments Follow-up Encounter Details Date Type Department Care Team (Late st Contact Info) Description 05/12/2024 3:30 PM EDT Office [place] [address] [facility] [place] [address] H/O Whipple procedure Social History Tobacco Use Types Packs/Day Years Used Date Smoking Tobacco: Never Smokeless Tobacco: Never Alcohol Use Standard Drinks/Week Comments Not Currently 0 (1 standard drink = 0.6 oz pur e alcohol) [facility] Utilities Answer Date Recorded In the past 12 months has [email or web address], gas, oil, or water [employer] threatened to shut off services in your [...] in a half-way (including now)? No 01/23/2023 Housing Stability Vital [...] were you homeless or living in a half-way (including now)? No 03/25/2024 DH IPV Inpatient [...] Nick is now 2 weeks postop from [place]. He has been home for over a [...] eat, he has resumed eating some traditional Trin[place] foods and has no abdominal pain with [...] 8:00 AM EDT Office Visit Hematology/Oncology at [address] [phone] Rodriguez Fowler MD [facility] [place] [address] Sherry Cedillo STRATEGY PLANNING CONSULTANT [address] [place] [address] DR HEMATOLOGY AND ONCOLOGY [place], [place] [id number] 05/28/2024 8:30 AM EDT Infusion Hematology Oncology at [address] [phone] 05/28/2024 9:30 AM EDT Clinical Support Hematology/Oncology at [address] [phone] [facility] HEMATOLOGY AND [place] [address] documented as of this encounter Visit Diagnoses Diagnosis H/O Whipple procedure Duodenal adenocarcinoma Malignant neoplasm of duodenum documented in this encounter Care Teams Electrician Helper Relationship Specialty Start Date End Date Olga Hoffman APRN [address] [place] [address] PCP - General Family Medicine 2/15/23 documented as of this encounter
--- OUTSIDE RECORDS SUMMARY | 2024-05-27 17:57 | XMS_ITS | Encounter Summary ---
Author Organization [facility] [place] [address] Care Team Providers Care Advertising Analyst Name Role Phone Olga Hoffman APRN Primary Care Provider +1 -[phone] Reason for Visit * Reason Comments IV Access Port flush only-tx h eld * Treatment/Therapy Plan Authorization (Routine) - Authorized Specialty Diagnoses / Procedures Referred By Janak t Referred To Contact Diagnoses Duodenal adenocarcinoma Procedures TC PALONOSETRON HCL, 25MCG, INJECTION (ALOXI) TC OXALIPLATIN, 0.5MG, INJECTION (ELOXATIN) TC LEUCOVORIN CALCIUM, 50MG, INJECTION (WELLCOVORIN) TC FLOUROURACIL, 500MG Rodriguez Fowler MD [facility] [place] [place] [address] Stj Hem Onc Infusion [address] [place] [phone] Referral ID Status Reason Start Date Expiration Date V isits Requested Visits Authorized [id number] Authorized 04/20/2024 04/20/2025 1 99 Encounter Details Date Type Department Care Team (Late st Contact Info) Description 05/07/2024 11:00 AM EDT Infusion Hematology Oncology at [address] [phone] Duodenal adenocarcinoma Social History Tobacco Use Types Packs/Day Years Used Date Smoking Tobacco: Never Smokeless Tobacco: Never Alcohol Use Standard Drinks/Week Comments Not Currently 0 (1 standard drink = 0.6 oz pur e alcohol) [facility] Utilities Answer Date Recorded In the [...] in a fpc (including now)? No 01/23/2023 Housing Stability Vital [...] were you homeless or living in a fpc (including now)? No 03/25/2024 IPV Inpatient Questions [...] AM EDT Office Visit Hematology/Oncology at [address] [phone] Rodriguez Fowler MD [facility] [place] [address] Sherry Cedillo APRN [address] [place] [address] DR HEMATOLOGY [place] [address] 05/28/2024 8:30 AM EDT Infusion Hematology Oncology at [address] [phone] 05/28/2024 9:30 AM EDT Clinical Support Hematology/Oncology at [address] [phone] [address] [facility] DR HEMATOLOGY [place] [address] documented as of this encounter Visit Diagnoses Diagnosis 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
--- OUTSIDE RECORDS SUMMARY | 2024-05-27 17:57 | XMS_ITS | Encounter Summary ---
Author Organization [facility] Address [facility] [place] [address] Care Team Providers Care Rod Straightener Name Role Phone Olga Hoffman APRN Primary Care Provider +1 [phone] Encounter Details Date Type Department Care Team (Latest Contact Info) Description 05/20/2024 Travel Social History Tobacco Use Types Packs/Day Years Used Date Smoking Tobacco: Never Smokeless Tobacco: Never Alcohol Use Standard Drinks/Week Comments Not Currently 0 (1 standard drink = 0.6 oz pur e alcohol) [facility] Utilities Answer Date Recorded In the [...] AM EDT Office Visit Hematology/Oncology at [address] [phone] Rodriguez Fowler MD [facility] [place] [address] Sherry Cedillo APRN [address] [place] [address] HEMATOLOGY AND ONCOLOGY [place], [place] [id number] 05/28/2024 8:30 AM EDT Infusion Hematology Oncology at [address] [phone] 05/28/2024 9:30 AM EDT Clinical Support Hematology/Oncology at [address] [phone] [facility] DR HEMATOLOGY [place] [address] documented as of this encounter Visit Diagnoses Not on filedocumented in this encounter Care Teams Rod Straightener Relationship Specialty Start Date End Date Olga Hoffman, NUTRITIONAL SERVICES DIRECTOR [address] [place] [address] PCP - General Family Medicine 10/30/22 documented as of this encounter
--- OUTSIDE RECORDS SUMMARY | 2024-05-27 17:57 | XMS_ITS | Encounter Summary ---
Author Organization [facility] Address [facility] [place] [address] Care Team Providers Care Freight Brakeman Name Role Phone Olga Hoffman APRN Primary Care Provider +1 [phone] Encounter Details Date Type Department Care Team (Late st Contact Info) Description 05/06/2024 Orders Only Hematology and Oncology at [facility] [place] [phone] Rodriguez Fowler MD [facility] [place] [address] Social History Tobacco Use Types Packs/Day Years Used Date Smoking Tobacco: Never Smokeless Tobacco: Never Alcohol Use Standard Drinks/Week Comments Not Currently 0 (1 standard drink = 0.6 oz pur e alcohol) [facility] Utilities Answer Date Recorded In the past 12 months has [employer], gas, oil, or water [employer] threatened to shut off services in your [...] in a custodial (including now)? No 03/25/2024 DH IPV Inpatient [...] AM EDT Office Visit Hematology/Oncology at [address] [phone] Rodriguez Fowler MD [facility] [place] [address] Sherry Cedillo APRN [address] [place] [address] DR HEMATOLOGY AND ONCOLOGY [place], [place] [id number] 05/28/2024 8:30 AM EDT Infusion Hematology Oncology at [address] [phone] 05/28/2024 9:30 AM EDT Clinical Support Hematology/Oncology at [address] [phone] Leah Rose, RD [facility] DR [place] [address] documented as of this encounter Visit Diagnoses Not on filedocumented in this encounter Care Teams Freight Brakeman Relationship Specialty Start Date End Date Olga Hoffman APRN [address] [place] [address] PCP - General Family Medicine 10/30/22 documented as of this encounter
--- OUTSIDE RECORDS SUMMARY | 2024-05-27 17:57 | XMS_ITS | Encounter Summary ---
Author Organization [facility] Address [facility] [place] [address] Care Team Providers Care Artificial Inseminator Name Role Phone Olga Hoffman APRN Primary Care Provider [phone] [phone] Encounter Details Date Type Department Care Team (Latest Contact Info) Description 05/21/2024 Travel Social History Tobacco Use Types Packs/Day Years Used Date Smoking Tobacco: Never Smokeless Tobacco: Never Alcohol Use Standard Drinks/Week Comments Not Currently 0 (1 standard drink = 0.6 oz pur e alcohol) [facility] Utilities Answer Date Recorded In the [...] any time in the past 12 m [facility], were you homeless or living in a [...] AM EDT Office Visit Hematology/Oncology at [address] [phone] Rodriguez Fowler MD [facility] [place] [address] Sherry Cedillo APRN [address] [place] [address] HEMATOLOGY AND ONCOLOGY [place], [place] [phone] 05/28/2024 8:30 AM EDT Infusion Hematology Oncology at [address] [phone] 05/28/2024 9:30 AM EDT Clinical Support Hematology/Oncology at [address] [phone] [facility] DR HEMATOLOGY [place] [address] documented as of this encounter Visit Diagnoses Not on filedocumented in this encounter Care Teams Artificial Inseminator Relationship Specialty Start Date End Date Olga Hoffman, PAINT MAKER [address] [place] [address] PCP - General Family Medicine 10/30/22 documented as of this encounter
--- OUTSIDE RECORDS SUMMARY | 2024-05-27 17:57 | XMS_ITS | Encounter Summary ---
Author Organization [facility] Address [facility] [place] [address] Care Team Providers Care Contractor Broomcorn Threshing Name Role Phone Olga Hoffman APRN Primary Care Provider [phone] Encounter Details Date Type Department Care Team (Late st Contact Info) Description 05/20/2024 9:00 AM EDT Office [place] [address] Rudi Hernandez MD [facility] [place] [address] H/O Whipple procedure Social History Tobacco Use Types Packs/Day Years Used Date Smoking Tobacco: Never Smokeless Tobacco: Never Alcohol Use Standard Drinks/Week Comments Not Currently 0 (1 standard drink = 0.6 oz pur e alcohol) [facility] Utilities Answer Date Recorded In the past 12 months has [employer], gas, oil, or water [employer] threatened to shut off services in your [...] any time in the past 12 m [facility], were you homeless or living in a [...] Nick is now 2 weeks postop from [place]. He has been home for over a [...] eat, he has resumed eating some traditional [place] foods and has no abdominal pain with [...] AM EDT Office Visit Hematology/Oncology at [address] [phone] Rodriguez Fowler MD [facility] [place] [address] Sherry Cedillo APRN [address] [place] [address] DR HEMATOLOGY AND ONCOLOGY [place], [place] [id number] 05/28/2024 8:30 AM EDT Infusion Hematology Oncology at [address] [phone] 05/28/2024 9:30 AM EDT Clinical Support Hematology/Oncology at [address] [phone] [facility] DR [place]EMATOLOGY [place] [address] documented as of this encounter Visit Diagnoses Diagnosis H/O Whipple procedure Duodenal adenocarcinoma Malignant neoplasm of duodenum documented in this encounter Care Teams Contractor Broomcorn Threshing Relationship Specialty Start Date End Date Olga Hoffman APRN [address] [place] [address] PCP - General Family Medicine 10/30/22 documented as of this encounter
--- OUTSIDE RECORDS SUMMARY | 2024-05-27 17:57 | XMS_ITS | Encounter Summary ---
Author Organization [facility] Address [facility] [place] [address] Care Team Providers Care Radio Broadcaster Name Role Phone Olga Hoffman APRN Primary Care Provider [phone] Encounter Details Date Type Department Care Team (Late st Contact Info) Description 05/06/2024 Orders Only Hematology and Oncology at [facility] [place] [phone] Rodriguez Fowler MD [facility] [place] [address] Social History Tobacco Use Types Packs/Day Years Used Date Smoking Tobacco: Never Smokeless Tobacco: Never Alcohol Use Standard Drinks/Week Comments Not Currently 0 (1 standard drink = 0.6 oz pur e alcohol) [facility] Utilities Answer Date Recorded In the past 12 months has [employer], gas, oil, or water [employer] threatened to shut off services in your [...] in a fci (including now)? No 03/25/2024 DH IPV Inpatient [...] AM EDT Office Visit Hematology/Oncology at [address] [phone] Rodriguez Fowler MD [facility] [place] [place] [address] Sherry Cedillo APRN [address] [place] [address] DR HEMATOLOGY AND ONCOLOGY [place], [place] [id number] 05/28/2024 8:30 AM EDT Infusion Hematology Oncology at [address] [phone] 05/28/2024 9:30 AM EDT Clinical Support Hematology/Oncology at [address] [phone] Leah Rose, RD [facility] DR HEMATOLOGY [place] [address] documented as of this encounter Visit Diagnoses Not on filedocumented in this encounter Care Teams Radio Broadcaster Relationship Specialty Start Date End Date Olga Hoffman APRN [address] [place] [address] PCP - General Family Medicine 10/30/22 documented as of this encounter
--- OUTSIDE RECORDS SUMMARY | 2024-05-27 17:57 | XMS_ITS | Encounter Summary ---
Author Organization [facility] [place] [address] Care Team Providers Care Hotel Custodian Name Role Phone Olga Hoffman APRN Primary Care Provider [phone] Encounter Details Date Type Department Care Team (Latest Contact Info) Description 05/07/2024 1:00 PM EDT Clinical Support Hematology/Oncolog y at [address] [phone] Leah Rose, RD [facility] DR HEMATOLOGY [place] [address] Duodenal adenocarcinoma Social History Tobacco Use Types Packs/Day Years Used Date Smoking Tobacco: Never Smokeless Tobacco: Never Alcohol Use Standard Drinks/Week Comments Not Currently 0 (1 standard drink = 0.6 oz pur e alcohol) [facility] Utilities Answer Date Recorded In the past 12 months has [employer], gas, oil, or water [employer] threatened to shut off services in your [...] to sleep or slept in a senior care (including now)? No 01/23/2023 Housing Stability Vital [...] you homeless or living in a senior care (including now)? No 03/25/2024 DH IPV Inpatient [...] hungry for it. He or his partner fry cook meal. Tonight will be chicken dloHaiti kerri. He had a hard time recalling what he ate yesterday. Dislikes: salads Preferred drinks: did not discuss today. Medications: 16 units Lantus/day, ZenPep 40 (3 per meal, 1 per snack), Tyelnol prn, Zofran-ODT prn,Omeprazole, Kcl, Mag-Ox, Amlodipine, Naltrexone, Citalopram, Tadalafil, Gabapentin, Lasix Social: Partner is RN at [employer]. Lives in [place], has 3 children. PMH: HTN, DM, depression, [...] 8:00 AM EDT Office Visit Hematology/Oncology at [address] [phone] Rodriguez Fowler MD [facility] [place] [address] Sherry Cedillo APRN [address] [place] [address] HEMATOLOGY AND ONCOLOGY [place], [place] [address] 05/28/2024 8:30 AM EDT Infusion Hematology Oncology at [address] [phone] 05/28/2024 9:30 AM EDT Clinical Support Hematology/Oncology at [address] [phone] Leah Rose, [facility] DR HEMATOLOGY [place] [address] documented as of this encounter Visit Diagnoses Diagnosis 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
--- OUTSIDE RECORDS SUMMARY | 2024-05-27 17:57 | XMS_ITS | Encounter Summary ---
Author Organization [facility] Address [facility] [place] [address] Care Team Providers Care Cut File Clerk Name Role Phone Olga Hoffman APRN Primary Care Provider [phone] Encounter Details Date Type Department Care Team (Late st Contact Info) Description 04/28/2024 Notes Only [place] [phone] Alo Calhoun, [facility] Social History Tobacco Use Types Packs/Day Years Used Date Smoking Tobacco: Never Smokeless Tobacco: Never Alcohol Use Standard Drinks/Week Comments Not Currently 0 (1 standard drink = 0.6 oz pur e alcohol) [facility] Utilities Answer Date Recorded In the [...] in a intermediate (including now)? No 03/25/2024 DH IPV Inpatient [...] this encounter Progress Notes * Alo Calhoun, [facility] - 04/28/2024 8:09 AM EDT Clinical Oncology Pharmacist Note Oncology PGx Results PATIENT ID: Charles Nick is a 48 y.o. male with duodenal adenocarcinoma. The patient's current treatment plan includes: FOLFOX. Pharmacist interpretation of Oncology PGx results is as follows: Interpretation: Gene Based on most recent FDA, CPIC (Clinical Pharmacogenetics Implementation Consortium), and DPWG([place] pharmacogenetics working group) guidelines: DPYD Normal metabolizer [...] Belinostat, Irinotecan, and Sacituzumab govitecan-hziy (brand name Thanh). Please do not hesitate to reach out with any questions. Alo Calhoun RPH 04/28/24 documented in this encounter Plan of Treatment Upcoming Encounters Date Type Department Care Team (Late st Contact Info) Description 05/28/2024 8:00 AM EDT Office Visit Hematology/Oncology at [address] [phone] [facility] [place] [address] Sherry Cedillo APRN [address] [place] [address] DR HEMATOLOGY AND ONCOLOGY [place], [place] [id number] 05/28/2024 8:30 AM EDT Infusion Hematology Oncology at [address] [phone] 05/28/2024 9:30 AM EDT Clinical Support Hematology/Oncology at [address] [phone] [facility] [place] [address] documented as of this encounter Visit Diagnoses Not on filedocumented in this encounter Care Teams Cut File Clerk Relationship Specialty Start Date End Date Olga Hoffman APRN [address] [place], [place] [address] PCP - General Family Medicine 10/30/22 documented as of this encounter
--- OUTSIDE RECORDS SUMMARY | 2024-05-27 17:57 | XMS_ITS | Clinical Summary ---
Author Organization Pending [facility] To [facility] Address [facility] [place] [address] Care Team Providers Care Gate Cutter Name Role Phone Dalton Olgaevy Bell APRN Primary Care Provider [phone] Allergies Active Allergy Reactions Criticality Noted Date [...] 50 mg by mouth daily. Active Insulin Rome, Disposable, (BD Ultra-Fine Micro Pen Needle) 32 gauge x 4 Needle 1 each by Mis.(Non-Drug; Combo Route) route 2 times daily. 300 [...] 4 Active Additional Information Patient taking differently: 19-20 UnitsSubcutaneous DAILY, Reported on 05/21/2024 acetaminophen (Tylenol) 325 mg tablet Take 2 tablets by mouth every 8 hours as needed for Pain. 30 tablet 1 4 Active nddidm-vkxefewu-qov lase (Zenpep) 40,000-126,000- 168,[address] capsule Take 3 capsules by mouth 3 times daily. Take three capsules with meals and 1 capsule with snacks 400 capsule 3 4 Active FreeStyle Lina 3 Sensor DeviceIndications:d iabetes mellitus 1 each by Misc.(Non-Drug; Combo Route) route every 14 days. Indications: diabetes 6 each 3 4 Active Semglee Pen U-100 Insulin 100 unit/mL (3 mL) penIndications:type 2 diabetes mellitus Inject 30 Units subcutaneously daily. Indications: type 2 diabetes mellitus 15 mL 5 4 Active insulin needles, disposable, 32 gauge x NeedleIndications:d iabetes mellitus Inject 1 each subcutaneously nightly. Indications: diabetes 100 each 11 4 Active insulin lispro (humaLOG KwikPen) 100 unit/mL Insulin PenIndications:type 2 diabetes mellitus Take 3 times daily before meals as instructed. Max daily dose: 60 units. Indications: type 2 diabetes mellitus 15 mL 5 4 Active glucagon (Baqsimi) 3 mg/actuation [place], Non-AerosolIndicati ons:hypoglycemic disorder 1 each by Nasal route as needed (Severe hypoglycemia not responding to oral treatment). Indications: low blood sugar 1 each 3 4 Active ergocalciferoL, vitamin D2, (vitamin D2) 50,000 unit capsule Take 1 capsule by mouth once a week. 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 Discussed increase in lasix [...] Encounters Date Type Department Care Team Description 05/25/2024 Orders Only Hematology [place] [address] Rodriguez Fowler MD 05/21/2024 10:25 AM EDT Laboratory Appointment Lab [address] [phone] Type 2 diabetes mellitus with diabetic polyneuropathy, with long-term current use of insulin 05/21/2024 9:00 AM EDT Office [place] [address] Nighat López MD Type 2 diabetes mellitus with diabetic polyneuropathy, with long-term current use of insulin; Vitamin D deficiency 05/21/2024 Travel 05/20/2024 9:00 AM EDT Office [place] [address] Rudi Hernandez MD H/O Whipple procedure 05/20/2024 Travel 05/12/2024 3:30 PM EDT Office [place] [address] Rudi Hernandez MD H/O Whipple procedure 05/12/2024 Travel 05/07/2024 1:00 PM EDT Clinical Support Hematology/Oncolog y at [address] [phone] Leah Rose, RD 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 11:00 AM EDT Infusion Hematology Oncology at [address] [phone] 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 10:30 AM EDT Office Visit Hematology/Oncolog y at [address] [phone] Rodriguez Fowler MD LaRoza, Stephanie A, APRN Duodenal adenocarcinoma; H/O Whipple procedure 05/07/2024 Travel 05/06/2024 Orders Only Hematology [place] [address] Rodriguez Fowler MD 05/06/2024 Orders Only Hematology [place] [address] Rodriguez Fowler MD 05/05/2024 8:41 AM EDT - 05/05/2024 11:59 PM EDT Hospital Encounter Radiology at [place] [phone] Silvio Wheeler MD Perihepatic abscess Discharge Disposition: Home 05/05/2024 8:00 AM EDT Office Visit Nephrology Hypertension at [place] [phone] Shahida Zamudio APRN Vitamin D deficiency; Essential hypertension; 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 05/05/2024 7:00 AM EDT Laboratory Appointment Lab [address] [place] [phone] 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; Obesity due to excess calories with serious comorbidity, unspecified classification 05/05/2024 Travel 05/04/2024 Orders Only Nephrology Hypertension at [place] [phone] Shahida Zamudio APRN 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; Obesity due to excess calories with serious comorbidity, unspecified classification 04/28/2024 Orders Only Radiology at [place] [phone] Silvio Weheler MD 04/28/2024 Notes Only Hematology and Oncology at [place] [phone] Alo Calhoun, [facility] 04/27/2024 Orders [place] [address] Rudi Hernandez MD 04/26/2024 9:17 AM EDT - 04/26/2024 11:59 PM EDT Hospital [place] [address] Rodriguez Fowler MD Duodenal adenocarcinoma Discharge Disposition: Home 04/26/2024 Travel 04/21/2024 10:13 AM EDT - 04/21/2024 11:59 PM EDT Hospital Encounter [place]iology [place] [phone] Juan Wright MD Perihepatic abscess; Duodenal adenocarcinoma Discharge Disposition: Home 04/21/2024 9:00 AM EDT Office Visit General Surgery at [place] [phone] Rudi Hernandez MD H/O Whipple procedure 04/20/2024 12:29 PM EDT - 04/20/2024 11:59 PM EDT Hospital Encounter Hematology and Oncology at [place] [phone] Duodenal adenocarcinoma; H/O Whipple procedure Discharge Disposition: Home 04/20/2024 11:00 AM EDT Office Visit Hematology and Oncology at [place] [phone] Rodriguez Fowler MD Duodenal adenocarcinoma 04/20/2024 Notes Only Radiology at [place] [phone] Latonia Oscar PA 04/20/2024 Travel 04/15/2024 9:00 AM EDT Telephone Hematology and Oncology at [place] [phone] Donna Dewey, ARASH 04/14/2024 Telephone Nephrology Hypertension at [place] [phone] Shahida Joshi 04/09/2024 Orders Only General Surgery at [place] [phone] Ruid Hernandez MD 04/08/2024 11:06 AM EDT - 04/08/2024 11:59 PM EDT Hospital Encounter CT Scan at [place] [phone] Rudi Hernandez MD H/O Whipple procedure Discharge Disposition: Home 04/08/2024 10:50 AM EDT - 04/08/2024 11:05 AM EDT Hospital Encounter Radiology at [place] [phone] Perihepatic abscess; Duodenal adenocarcinoma; Obesity due to excess calories with serious comorbidity, unspecified classification Discharge Disposition: Home 04/08/2024 10:00 AM EDT Clinical Support [place] [address] Donna Dewey, ARASH H/O Whipple procedure 04/08/2024 9:30 AM EDT Office [place] [address] Rudi Hernandez MD H/O Whipple procedure 04/08/2024 8:45 AM EDT Laboratory Appointment Lab [address] [place] [address] Duodenal adenocarcinoma 04/07/2024 Travel 04/01/2024 Travel 03/26/2024 Telephone [place] [address] Gina Marie RN 03/24/2024 9:11 PM EDT - 04/01/2024 3:24 PM EDT Hospital Encounter Surgical Unit Level 4 [place] [address] Rudi Hernandez MD Perihepatic abscess; Duodenal adenocarcinoma; Obesity due to excess calories with serious comorbidity, unspecified classification; Severe protein-calorie malnutrition Discharge Disposition: Home with VNA 03/24/2024 7:50 PM EDT Ancillary [place] [address] Rudi Hernandez MD 03/24/2024 5:30 PM EDT Ancillary [place] [address] Rudi Hernandez MD 03/24/2024 10:30 AM EDT Telephone Hematology [place] [address] 03/24/2024 Orders [place] [address] Tylor Don DO 03/24/2024 Telephone [place] [address] Gina Marie, RN 03/22/2024 Orders [place] [address] Rudi Hernandez MD Duodenal adenocarcinoma; H/O Whipple procedure 03/20/2024 Multidisciplinary Ca re Committee [place] [address] Rudi Hernandez MD 03/19/2024 Telephone [place] [address] Jaki Pantoja, GRETCHEN 03/17/2024 10:30 AM EDT Clinical Support [place] [address] Donna Dewey, ARASH Duodenal cancer 03/17/2024 10:00 AM EDT Office [place] [address] Rudi Hernandez MD Duodenal adenocarcinoma 03/17/2024 Travel 03/16/2024 Multidisciplinary Ca re Committee [place] [address] Rudi Hernandez MD 03/10/2024 Telephone [place] [address] Rudi Hernandez MD 03/10/2024 Orders [place] [address] Rudi Hernandez MD Duodenal cancer 03/05/2024 Telephone [place] [address] Gary Mtz PA 03/05/2024 Telephone Nephrology Hypertension at [place] [phone] Deena Wells 03/05/2024 Transcribe Orders eDH Incoming Referrals [phone] Olga Hoffman, YOCASTA Other specified diabetes mellitus with other specified complication, unspecified whether assisted insulin use 03/02/2024 11:59 PM EDT Anesthesia Event PACU at [place] [phone] Rafi Pena RN 03/01/2024 7:43 AM EDT Anesthesia [place] [address] Gary Scott MD Treide, Alexander P, CRNA 03/01/2024 7:30 AM EDT - 03/01/2024 4:58 PM EDT Surgery Main Operating Room [place] [phone] Rudi Hernandez MD @CASCO PROCEDURE (WRVU 52.84) 03/01/2024 6:11 AM EDT - 03/08/2024 3:01 PM EDT Hospital Encounter Surgical Unit Level 4 [place] [address] Rudi Hernandez MD Duodenal cancer; Duodenal adenocarcinoma Discharge Disposition: Home 02/26/2024 2:35 PM EDT Ancillary [place] [address] Rudi Hernandez MD 02/26/2024 Orders [place] [address] June Delacruz Duodenal cancer (Primary Dx) from Last 3 Months Social History Tobacco Use Types Packs/Day Years Used Date Smoking Tobacco: Never Smokeless Tobacco: Never Tobacco Cessation:Counseling Given: Not Answered Alcohol Use Standard Drinks/Week Comments Not Currently 0 (1 standard drink = 0.6 oz pur e alcohol) [facility] Utilities Answer Date Recorded In the past 12 months has [employer], gas, oil, or water [employer] threatened to shut off services in your [...] Sign Reading Time Taken Comments Blood Pressure 127/89 05/21/2024 9:04 AM EDT Pulse 87 05/21/2024 9:04 AM EDT Temperature 36.8 ??C (98.3 ??F) 05/21/2024 9:04 AM ED T Respiratory Rate 16 05/21/2024 9:04 AM EDT Oxygen Saturation 97% 05/21/2024 9:04 AM EDT Inhaled Oxygen Concentration - - Weight 119.8 kg (264 lb 3.2 oz) 05/21/2024 9:04 AM EDT Height 188 cm (6' 2) 05/21/2024 9:04 AM EDT Body Mass Index 33.92 05/21/2024 9:04 AM EDT Plan of Treatment Upcoming Encounters Date Type Department Care Team (Late st Contact Info) Description 05/28/2024 8:00 AM EDT Office Visit Hematology/Oncology at [address] [phone] Rodriguez Fowler MD [facility] [place] [address] Sherry Cedillo APRN [address] [place] [address] DR HEMATOLOGY AND ONCOLOGY [place], [place] [phone] 05/28/2024 8:30 AM EDT Infusion Hematology Oncology at [address] [phone] 05/28/2024 9:30 AM EDT Clinical Support Hematology/Oncology at [address] [phone] [facility] [place] [address] Health Maintenance Due Date Last Done Comments [...] Influenza standard series) 05/16/2024 DM Hemoglobin A1c 08/20/2024 05/21/2024, , 03/02/2024, Additional history exists DM Creatinine yearly 04/20/2025 04/20/2024, 04/08/2024, 04/01/2024, Additional history exists DM Urine Microalbumin yearly 05/05/2025, 12/12/2021, 12/22/2018, Additional history exists Hepatitis C Screening Completed 12/25/2022 Diabetes Screening (HgbA1C o r Glucose) Discontinued 05/21/2024, 05/21/2024, 04/20/2024, Additional history exists Medical Devices Implanted Type Area Cadd Operator Device Identifier Shelf Expiration Date Model / Serial / Lot Port Infusion 8fr Cath Power Lp Ct Plastic Dignity [id number]/15 Implanted:Qty : 1 on 04/26/2024 by Latonia Oscar PA IMPLANTS Right: Chest Wall [employer] - [employer] [place] 03/14/2028 [id number] / [id number] / [id number] Description:RIGHGT 8FR MINI PORT PLACEMENT Procedures Procedure Name Priority Date/Time Associated Diagnosis Comments GLUCOSE Routine 05/21/2024 10:13 AM EDT Type 2 diabetes mellitus with diabetic polyneuropathy, with long-term current use of insulin C-PEPTIDE Routine 05/21/2024 10:13 AM EDT Type 2 diabetes mellitus with diabetic polyneuropathy, with long-term current use of insulin LDL CHOLESTEROL, DIRECT Routine 05/21/20 24 10:13 AM EDT Type 2 diabetes mellitus with diabetic polyneuropathy, with long-term current use of insulin HEMOGLOBIN A1C Routine 05/21/2024 10:13 AM EDT Type 2 diabetes mellitus with diabetic polyneuropathy, with long-term current use of insulin LAB SCAN 05/07/2024 12:00 AM EDT IR [...] 6:37 AM EDT DIFFERENTIAL, AUTOMATED Routine 04/01/20 24 4:48 AM EDT HEMOGRAM Routine 04/01/2024 4:48 [...] 7:45 AM EDT Transfer Skin Pedicle Flap ([id number]) 03/01/2024 7:42 AM EDT DUODENUM ADENCARCINOMA Part Remv Panc, Prox+Remv Duod+Anast ([id number]) 03/01/2024 7:42 AM EDT DUODENUM ADENCARCINOMA [id number] ONLY Routine 7:21 AM EDT CREATININE Routine [...] Recently Relevant to Health Maintenance Results * C-peptide (05/21/2024 10:13 AM EDT) C-Peptide 3.8 1.1 - 4.4 ng/ml 05/21/2024 11:09 AM EDT [facility] Comment:Reference intervals for C-peptide (1.1 - 4.4 ng/mL) are only applicable to specimens collected fasting. Results from nonfasted specimens must be placed into clinical context. Fasting Status Yes 05/21/2024 11:09 AM EDT [facility] Blood VENOUS BLOOD SPECIMEN / Unknown Venipuncture / Unknown 05/21/2024 10:13 AM EDT 05/21/2024 10:13 AM EDT Rosaline Gordon MD CHEMISTRY ORDERABLES [facility] [place] [address] * LDL Cholesterol, Direct (05/21/2024 10:13 AM EDT) LDL Cholesterol, Direct 54 mg/dL 05/21/2024 11:09 AM EDT [facility] Comment: Desirable: <100 mg/dL Above Desirable: 100-129 mg/dL Borderline High: 130-159 mg/dL High: 160-189 mg/dL Very High: > or =190 mg/dL If not reaching LDL goals on maximally tolerated statin, consider ezetimibe and/or a PCSK9 inhibitor: ? * Target for primary prevention: LDL<100 ? * Target for those with ASCVD or diabetes and 10-year risk?20%: LDL<70 ? * Target for those with very high risk ASCVD: LDL<55 (Very high risk being the presence of 2 or more of: recent acute coronary syndrome, past ?myocardial infarction, ischemic stroke, symptomatic peripheral artery disease). Blood VENOUS BLOOD SPECIMEN / Unknown Venipuncture / Unknown 05/21/2024 10:13 AM EDT 05/21/2024 10:13 AM EDT Rosaline Gordon MD CHEMISTRY ORDERABLES Performing Organization Address City/[facility] Co de Phone Number [facility] [place] [address] * (ABNORMAL) Hemoglobin A1c (05/21/2024 10:13 AM EDT) Only the most recent of2 resultswithin the time period is included. Hemoglobin A1c 8.1(H) 4.3 - 5.6 % 05/21/2024 10:51 AM EDT [facility] Comment: Per ADA guidelines, without clear symptoms of hyperglycemia or a random plasma glucose >199 mg/dL, a single abnormal A1c measurement cannot be used to diagnose diabetes mellitus. The diagnosis must be confirmed by either 1) a concurrent abnormal fasting plasma glucose or impaired response to oral glucose tolerance testing, or 2) an additional abnormal A1c, impaired fasting plasma glucose, or impaired response to oral glucose tolerance testing on a different day. A1c results obtained on patients with altered red blood cell turnover may not be hardware supplies sales representative of glycemic control. Reference Interval: 4.3 - 5.6% 5.7 - 6.4%: Consistent with prediabetes >=6.5%: Consistent with diagnosis of diabetes mellitus Estimated Average Glucose 186 mg/dL 05/21/2024 10:51 AM EDT [facility] Blood VENOUS BLOOD SPECIMEN / Unknown Venipuncture / Unknown 05/21/2024 10:13 AM EDT 05/21/2024 10:13 AM EDT Rosaline Gordon MD CHEMISTRY ORDERABLES Performing Organization Address City/[facility]/ZIP Co de Phone Number [facility] [place] [address] * (ABNORMAL) Glucose Non-fasting (05/21/2024 10:13 AM EDT) Glucose 277(H) 65 - 99 mg/dL 05/21/2024 11:09 AM EDT [facility] Comment: Fasting Glucose Interpretive Criteria: Normal: 65-99 mg/dL ?? Prediabetes: 100-125 mg/dL ?? Consistent with Diabetes Mellitus: > or = 126 mg/dL ?? Classification and Diagnosis of Diabetes: Standards of Care in Diabetes - 2022. Diabetes Care 2022; 46:S19. Fasting is defined as no caloric intake for at least 8 hours. Fasting Status Yes 05/21/2024 11:09 AM EDT [facility] Blood VENOUS BLOOD SPECIMEN / Unknown Venipuncture / Unknown 05/21/2024 10:13 AM EDT 05/21/2024 10:13 AM EDT Rosaline Gordon MD CHEMISTRY ORDERABLES Performing Organization Address [facility] Co de Phone Number [facility] [place] [address] * Scan Doc: Lab (05/07/2024 12:00 AM [...] sterile barrier technique was used throughout. ?? Principal Technologist fluoroscopic images were obtained. ??Contrast was injected [...] Silvio Wheeler MD IMG IR ORDERABLES * PTH (05/05/2024 7:19 AM EDT) Parathyroid Hormone 50 15 - 65 pg/mL 05/05/2024 8:56 AM EDT [facility] Blood VENOUS BLOOD SPECIMEN / Unknown Venipuncture / Unknown 05/05/2024 7:19 AM EDT 05/05/2024 7:23 AM EDT Shahida Zamudio APRN CHEMISTRY ORDERABLES [facility] [place] [address] * (ABNORMAL) Protein/Creatinine Ratio, urine (05/05/2024 7:19 AM EDT) Protein, Urine 25(H) 0 - 12 mg/dL 05/05/2024 11:45 AM EDT [facility] Creatinine, Urine 178 mg/dL 05/05/2024 11:45 AM EDT [facility] Protein / Creatinine Ratio, Urine 0.1 ratio 05/05/2024 11:45 AM EDT [facility] Urine URINE SPECIMEN / Unknown Non Blood Collection / Unknown 05/05/2024 7:19 AM EDT 05/05/2024 7:23 AM EDT Shahida Zamudio APRN URINE ORDERABLES [facility] [place] [address] * (ABNORMAL) U Albumin/Cre Ratio (05/05/2024 7:19 AM EDT) Albumin, Urine 63.8 mg/L 05/05/2024 11:45 AM EDT [facility] Creatinine, Urine 178 mg/dL 024 11:45 AM EDT [facility] Albumin / Creatinine Ratio, Urine 36(H) 0 - 29 mcg/mg Cr 05/05/2024 11:45 AM EDT [facility] Comment: Reference Ranges: ?? <30 mcg/mg: [...] Zamudio APRN URINE ORDERABLES Performing Organization Address City/[facility]/ZIP Co de Phone Number [facility] [place] [address] * (ABNORMAL) Vitamin D, 25-Hydroxy (05/05/2024 7:19 AM EDT) Vitamin D Total 25 OH 12(L) 21 - 100 ng/ml 05/05/2024 10:36 AM EDT [facility] Vitamin D Total 25 OH Interp Deficient 05/05/2024 10:36 AM EDT [facility] Blood VENOUS BLOOD SPECIMEN / Unknown Venipuncture / Unknown 05/05/2024 7:19 AM EDT 05/05/2024 7:23 AM EDT Shahida Zamudio APRN CHEMISTRY ORDERABLES Performing Organization Address City/[facility]/ZIP Co de Phone Number [facility] [place] [address] * Phosphorus (05/05/2024 7:19 AM EDT) Only the most recent of19 resultswithin the time period is included. 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 Blood CAPILLARY BLOOD / Unknown 04/26/2024 9:51 AM EDT 04/26/2024 9:52 AM EDT Rodriguez Fowler MD POINT OF CARE TEST O RDERABLES [facility] [place] [address] * EKG 12 Lead (04/21/2024 9:24 AM EDT) Only the most recent of3 resultswithin the time period is included. Pathologist [facility] Ventricular rate 65 BPM MUSE SYSTEM Atrial Rate 65 BPM MUSE SYSTEM P-R Interval 152 ms MUSE SYSTEM QRS Duration 92 ms MUSE SYSTEM Q-T Interval 432 ms MUSE SYSTEM QTC Calculated (Bezet) 449 ms MUSE SYSTEM Calculated P [place] 64 degrees MUSE SYSTEM Calculated R [place] 52 degrees MUSE SYSTEM Calculated T [place] 59 degrees MUSE SYSTEM INTERPRETATION Normal sinus rhythm Normal ECG When compared with ECG of 29-MAR-2024 15:33, No significant change was found Confirmed by MD Murry Danette ([id number]) on 04/21/2024 8:37:04 PM MUSE SYSTEM 04/21/2024 9:24 AM EDT 04/21/2024 8:37 PM EDT Unknown ECG ORDERABLES MUSE SYSTEM * PGx Oncology (04/20/2024 12:39 PM EDT) Pathologist [facility] NGS Report Status Normal 04/27/2024 4:56 PM EDT [facility] Blood VENOUS BLOOD SPECIMEN / Unknown Venipuncture / Unknown 04/20/2024 12:39 PM EDT 04/20/2024 12:39 PM EDT Rodriguez Fowler MD MOLECULAR ORDERABLES Performing Organization Address City/[facility]/ZIP Co de Phone Number [facility] [place] [address] * (ABNORMAL) Iron and TIBC (04/20/2024 12:39 PM EDT) Pathologist [facility] Iron 49 45 - 160 mcg/dL 04/20/2024 5:03 PM EDT [facility] Unsaturated Iron Binding Capacity 184 110 - 370 mcg/dL 04/20/2024 5:03 PM EDT [facility] TIBC 233(L) 250 - 450 mcg/dL 04/20/2024 5:03 PM EDT [facility] Iron Saturation 21 20 - 50 % 5:03 PM EDT [facility] Blood VENOUS BLOOD SPECIMEN / Unknown Venipuncture / Unknown 04/20/2024 12:39 PM EDT 04/20/2024 12:39 PM EDT Rudi Hernandez MD CHEMISTRY ORDERABLES [facility] [place] [address] * (ABNORMAL) CBC (with Diff) (04/20/2024 12:39 PM EDT) White Blood Cell 7.18 x10(3)/mc L 04/20/2024 12:49 PM EDT [facility] Red Blood Cell 5.26 4.58 - 5.54 x10(6)/mc L 04/20/2024 12:49 PM EDT [facility] Hemoglobin 12.6(L) 13.7 - 16.5 g/dL 04/20/2024 12:49 PM T [facility] Hematocrit 40.5 40.5 - 48.5 % 04/20/2024 12:49 PM EDT [facility] Mean Cell Volume 77.0(L) 82.9 - 93.1 fL 04/20/2024 12:49 PM EDT [facility] Mean Cell Hemoglobin 24.0(L) 27.5 - 32.1 pg 04/20/2024 12:49 PM EDT [facility] Mean Cell Hemoglobin Concentration 31.1(L) 32.0 - 35.7 g/dL 04/20/2024 12:49 PM EDT [facility] Platelet 178 145 - 357 x10(3)/mc L 04/20/2024 12:49 PM EDT [facility] Mean Platelet Volume 10.5 7.6 - 12.9 fL 04/20/2024 12:49 PM EDT [facility] RDW Standard Deviation 48.7(H) 36.0 - 45.0 fL 04/20/2024 12:49 PM [facility] RDW coefficient of variation 17.7(H) 11.4 - 13.8 % 04/20/2024 12:49 PM EDT [facility] NRBC% auto 0.0 % 04/20/2024 12:49 PM [facility] NRBC Absolute 0.00 0.00 - 0.00 x10(3)/mc L 04/20/2024 12:49 PM EDT [facility] Neutrophil % 66.4 % 04/20/2024 12:49 PM EDT [facility] [facility] Neutrophil Absolute (ANC) - Automated 4.77 1.70 - 6.10 x10(3)/mc L 04/20/2024 12:49 PM EDT [facility] Lymph % 20.8 % 04/20/2024 12:49 PM EDT [facility] Lymph Absolute 1.49 0.90 - 3.20 x10(3)/mc L 04/20/2024 12:49 PM EDT [facility] Monocyte % 6.1 % 04/20/2024 12:49 PM EDT [facility] Monocyte Absolute 0.44 0.30 - 0.90 x10(3)/mc L 04/20/2024 12:49 PM EDT [facility] Eos % 5.3 % 04/20/2024 12:49 PM EDT [facility] Eos Absolute 0.38 0.00 - 0.40 x10(3)/mc L 04/20/2024 12:49 PM EDT [facility] Basophil % 0.6 % 04/20/2024 12:49 PM EDT [facility] Baso Absolute 0.04 0.00 - 0.10 x10(3)/mc L 04/20/2024 12:49 PM EDT [facility] Immature Gran % 0.8 % 12:49 PM EDT [facility] Immature Gran Absolute 0.06(H) 0.00 - 0.04 x10(3)/mc L 04/20/2024 12:49 PM EDT [facility] Blood VENOUS BLOOD SPECIMEN / Unknown Venipuncture / Unknown 04/20/2024 12:39 PM EDT 04/20/2024 12:39 PM EDT Rudi Hernandez MD HEMATOLOGY ORDERABLE S Performing Organization Address City/[facility]/ZIP Co de Phone Number [facility] [place] [address] * Magnesium (04/20/2024 12:39 PM EDT) Only the most recent of18 resultswithin the time period is included. Magnesium 0.74 0.69 - 1.07 mMol/L 04/20/2024 1:28 PM EDT [facility] Blood VENOUS BLOOD SPECIMEN / Unknown Venipuncture / Unknown 04/20/2024 12:39 PM EDT 04/20/2024 12:39 PM EDT Rudi Hernandez MD CHEMISTRY ORDERABLES Performing Organization Address [facility] Co de Phone Number [facility] [place] [address] * Ferritin (04/20/2024 12:39 PM EDT) Ferritin 55 31 - 409 ng/ml 04/20/2024 1:24 PM EDT [facility] Blood VENOUS BLOOD SPECIMEN / Unknown Venipuncture / Unknown 04/20/2024 12:39 PM EDT 04/20/2024 12:39 PM EDT Rudi Hernandez MD CHEMISTRY ORDERABLES Performing Organization Address City/[facility]/ZIP Co de Phone Number [facility] [place] [address] * CEA (04/20/2024 12:39 PM EDT) Carcinoembryonic Antigen 1.1 <=3.8 ng/ml 04/20/2024 1:24 PM EDT [facility] Comment: Some smokers may have elevated CEA, generally < 5.5 ng/mL. This result was generated using a Amanda Bonifacio immunoassay. ??Results obtained from other methods or manufacturers cannot be used interchangeably with this method. Blood VENOUS BLOOD SPECIMEN / Unknown Venipuncture / Unknown 04/20/2024 12:39 PM EDT 04/20/2024 12:39 PM EDT Rodriguez Fowler MD CHEMISTRY ORDERABLES [facility] [place] [address] * (ABNORMAL) Comprehensive metabolic panel (04/20/2024 12:39 PM EDT) Only the most recent of10 resultswithin the time period is included. Glucose 204(H) 65 - 199 mg/dL 04/20/2024 1:28 PM EDT [facility] Comment:Glucose Concentratio n >=200 mg/dL plus symptoms is consistent with Diabetes Mellitus. Blood Urea Nitrogen 5(L) 10 - 20 mg/dL 04/20/2024 1:28 PM EDT [facility] Creatinine 0.82 0.80 - 1.50 mg/dL 04/20/2024 1:28 PM EDT [facility] Sodium 141 135 - 145 mMol/L 04/20/2024 1:28 PM EDT [facility] Potassium 4.1 3.5 - 5.0 mMol/L 04/20/2024 1:28 PM EDT [facility] Chloride 104 98 - 107 mMol/L 04/20/2024 1:28 PM EDT [facility] Carbon Dioxide 27 22 - 31 mMol/L 04/20/2024 1:28 PM EDT [facility] Anion Gap 10 5 - 15 mMol/L 04/20/2024 1:28 PM EDT [facility] Calcium 9.2 8.5 - 10.5 mg/dL 04/20/2024 1:28 PM EDT [facility] Protein, Total 6.5 6.1 - 8.0 g/dL 04/20/2024 1:28 PM EDT [facility] Albumin 3.5 3.2 - 5.2 g/dL 04/20/2024 1:28 PM EDT [facility] Aspartate Aminotransferase 15 <=39 unit/L 04/20/2024 1:28 PM EDT [facility] Alanine Aminotransferase 14 0 - 55 unit/L 04/20/2024 1:28 PM EDT [facility] Alkaline Phosphatase 71 40 - 130 unit/L 04/20/2024 1:28 PM EDT [facility] Bilirubin, Total 0.3 <=1.3 mg/dL 04/20/2024 1:28 PM EDT [facility] Est Glomerular Filtration Rate - Male 108 mL/min/1. 73 m?? 04/20/2024 1:28 PM EDT [facility] Comment: This patient's estimated [...] Fasting Status No 04/20/2024 1:28 PM EDT [facility] Blood VENOUS BLOOD SPECIMEN / Unknown Venipuncture / Unknown 04/20/2024 12:39 PM EDT 04/20/2024 12:39 PM EDT Rudi Hernandez MD CHEMISTRY ORDERABLES [facility] [place] [address] * CT Abdomen & Pelvis w Contrast (04/08/2024 11:27 AM EDT) WORKSTATION ID [id number] RAD Anatomical Region Laterality Modality Abdomen, Pelvis [...] who have questions please contact the health landcare officer that requested your imaging first. ? Narrative 04/09/2024 10:10 AM EDT EXAMINATION: CT [...] patients who have questions please contactthe health landcare officer that requested your imaging first. Rudi Hernandez MD IMG CT ORDERABLES * Amylase Level Body Fluid (04/08/2024 9:30 AM EDT) Only the most recent of6 resultswithin the time period is included. Amylase, Fluid >7,500 unit/L [facility] Comment: Reference intervals are unavailable for this test in body fluids. Comparison of this result with the concentration in blood, serum, or plasma is recommended. This test has not been cleared by the [place] FDA. Performance characteristics of this test for the analysis of body fluids were determined by [facility] in accordance with CLIA requirements. This laboratory is qualified under CLIA to perform high-complexity testing. Amylase BF Type BASIA Drain [facility] BASIA Drain 04/08/2024 9:30 AM EDT 04/08/2024 9:40 AM EDT Narrative Resulting Agency Comment Spec In Lab Rudi Hernandez MD BODY FLUIDS AND STOO LS ORDERABLES [facility] [place] [address] * (ABNORMAL) Hemogram (04/08/2024 8:17 AM EDT) Only the most recent of17 resultswithin the time period is included. White Blood Cell 10.1(H) 4.0 - 9.5 x10(3)/mc L [facility] Red Blood Cell 5.86(H) 4.58 - 5.54 x10(6)/mc L [facility] Hemoglobin 14.0 13.7 - 16.5 g/dL [facility] Hematocrit 45.1 40.5 - 48.5 % [facility] Mean Cell Volume 77.0(L) 82.9 - 93.1 fL [facility] Mean Cell Hemoglobin 23.9(L) 27.5 - 32.1 pg [facility] Mean Cell Hemoglobin Concentration 31.0(L) 32.0 - 35.7 g/dL [facility] Platelet 248 145 - 357 x10(3)/ L [facility] RDW Standard Deviation 47.8(H) 36.0 - 45.0 fL [facility] RDW coefficient of variation 18.4(H) 11.4 - 13.8 % [facility] Mean Platelet Volume 11.0 7.6 - 12.9 fL [facility] NRBC% auto 0.0 % [facility] NRBC Absolute 0.000 0.000 - 0.000 x10(3)/ L [facility] Blood 04/08/2024 8:17 AM EDT 04/08/2024 8:38 AM EDT Narrative Resulting Agency Comment Spec In Lab Gary KIM HEMATOLOGY ORDERABLE S Performing Organization Address City/State/[facility] Co de Phone Number [facility] [place] [address] * (ABNORMAL) Differential, Automated (04/08/2024 8:17 AM EDT) Only the most recent of16 resultswithin the time period is included. Neutrophil % 73.9 % [facility] Neutrophil Absolute 7.47(H) 1.70 - 6.10 x10(3)/ L [facility] Lymph % 17.6 % [facility] Lymphocytes Abs 1.8 0.9 - 3.2 x10(3)/[facility] Monocyte % 4.5 % [facility] Monocyte Abs 0.4 0.3 - 0.9 x10(3)/[facility] Eos % 2.6 % [facility] Eosinophils Abs 0.3 0.0 - 0.4 x10(3)/[facility] Basophil % 1.1 % [facility] Baso Absolute 0.1 0.0 - 0.1 x10(3)/[facility] Immature Gran % 0.30 % [facility] Comment: Immature granulocytes(IG's)percentage and absolute count will include metamyelocytes, myelocytes, and promyelocytes. Blood smears from CBCs yielding IG's will be scanned manually for concordance. If this scan disagrees with the automated IG or if promyelocytes are noted, a manual differential will be performed. Immature Gran Absolute 0.03 0.00 - 0.04 x10(3)/[facility] Blood 04/08/2024 8:17 AM EDT 04/08/2024 8:38 AM EDT Narrative Resulting Agency Comment Spec In Lab Gary KIM [place]EM[place] [address] * POCT Glucose (04/01/2024 12:31 PM EDT) Only the most recent of111 resultswithin the time period is included. Glucose, POC 192 65 - 199 mg/dL [facility] Comment: Supplemental ranges: <140 mg/dL before meals <180 mg/dL all other times of the day Blood 04/01/2024 12:3 1 PM EDT 04/01/2024 12:31 PM EDT Rudi Hernandez MD POINT OF CARE TEST O RDERABLES [facility] [place] [address] * (ABNORMAL) Basic Metabolic Panel (non-fasting) (04/01/2024 4:48 AM EDT) Only the most recent of18 resultswithin the time period is included. Glucose 165 65 - 199 mg/dL [facility] Comment:Diabetes: >=200 mg/d L plus symptoms Blood Urea Nitrogen 10 10 - 20 mg/dL [facility] Creatinine 0.70(L) 0.80 - 1.50 mg/dL [facility] Sodium 137 135 - 145 mmol/L [facility] Potassium 4.8 3.5 - 5.0 mmol/L [facility] Comment: Please note: ??Patients with WBC >100,000 may have falsely elevated Potassium levels. ??For accurate Potassium quantification in these patients send serum separator tube (gold top) for subsequent determinations. ??Contact the Clinical Chemistry Laboratory if there are any questions. Chloride 100 98 - 107 mmol/L [facility] Carbon Dioxide 29 22 - 31 mmol/L [facility] Anion Gap 8 5 - 15 mmol/L [facility] Calcium 8.9 8.5 - 10.5 mg/dL [facility] Est Glomerular Filtration Rate 113 >=60 mL/min/1. 73 m?? [facility] Comment: This patient's estimated [...] Hernandez MD CHEMISTRY ORDERABLES Performing Organization Address [facility] Co de Phone Number [facility] [place] [address] * Scan Doc: Telemetry Strips (03/30/2024 11:34 AM EDT) Only the most recent of7 resultswithin the time period is included. Narrative 03/30/2024 11:34 AM EDT Ordered by an unspecified provider. Scanning Provider MEDIA MGR SCAN EXT O RDR/RSLT * Triglyceride (03/29/2024 4:30 AM EDT) [facility] Triglyceride 91 mg/dL [facility] Comment: Normal: ?<150 mg/dL Borderline High: 150-199 mg/dL High: ?200-499 mg/dL Very High: ? >rg=841 mg/dL Blood Venous Draw / Unknown 03/29/2024 4:30 AM EDT 03/29/2024 4:36 AM EDT Narrative Resulting Agency Comment Spec In Lab Rudi Hernandez MD CHEMISTRY ORDERABLES Performing Organization Address [facility] Co de Phone Number [facility] [place] [address] * (ABNORMAL) Hepatic Function Panel (03/29/2024 4:30 AM EDT) Protein, Total 5.4(L) 6.1 - 8.0 g/dL [facility] Albumin 2.7(L) 3.2 - 5.2 g/dL [facility] Aspartate Aminotransferase 10 0 - 39 unit/L [facility] Alanine Aminotransferase 8 0 - 55 unit/L [facility] Alkaline Phosphatase 66 40 - 130 unit/L [facility] Bilirubin, Total 0.2 0.2 - 1.3 mg/dL [facility] Bilirubin, Direct 0.1 0.0 - 0.3 mg/dL [facility] Blood Venous Draw / Unknown 03/29/2024 4:30 AM EDT 03/29/2024 4:36 AM EDT Narrative Resulting Agency Comment Spec In Lab Rudi Hernandez MD CHEMISTRY ORDERABLES Performing Organization Address [facility] Co de Phone Number [facility] [place] [address] * Lavender Tube HOLD (03/27/2024 12:14 AM EDT) Lavender Hold Sample in lab. [facility] Blood Venous Draw / Unknown 03/27/2024 12:14 AM EDT 03/27/2024 12:40 AM EDT Chalino Cristina MD HEMATOLOGY ORDERABLE S Performing Organization Address [facility] Phone Number [facility] [place] [address] * Place PICC Line: Contact Vascular Access Page [phone] Extremity to exclude: No restrictions; Is PICC [...] to the planned procedure. Hand Hygiene: The distribution estimator did perform hand hygiene prior to line insertion. Catheter type: PICC Lot number: [id number] Procedure Technique: Skin was prepped with chlorhexidine. [...] Guidance (IV Team) (03/26/2024 4:02 PM EDT) WORKSTATION ID [id number] RAD Anatomical Region Laterality Modality N/A Radio [...] who have questions please contact the health landcare officer that requested your imaging first. ? Narrative 03/26/2024 4:17 PM EDT EXAMINATION: XR [...] FINDINGS: Intraprocedural frontal radiograph (final image time [id number]) of the mediastinum demonstrates a right PICC [...] patients who have questions please contactthe health landcare officer that requested your imaging first. Rudi Hernandez [...] is included. Anaerobic Culture Many Prevotella buccae(A) [facility] Organism Prevotella buccae(A) [facility] Abdominal Fluid 03/25/2024 1 0:00 AM EDT 03/25/2024 11:30 AM EDT Comment:s/p Whipple w/ po in tolerance, leukocytosis, tachycardia, hypoT - developing abscess (at pancreatic bed - 5x2 cm) Narrative Resulting Agency Comment Spec In Lab Joe Quintero DO MICROBIOLOGY - GENER AL ORDERABLES [facility] [place] [address] * (ABNORMAL) Body Fluid Culture, Aerobic (03/25/2024 10:00 AM EDT) Only the most recent of2 resultswithin the time period is included. Body Fluid Culture Many mixed Gram Negative and Positive organisms including Streptococcus milleri, anginosis group and Rare Yeast (A) [facility] Gram Stain Many Neutrophils seen Many Gram Positive Cocci seen Few Gram Negative Rods seen Few Gram Positive Rods seen (A) [facility] Organism Streptococcus milleri, anginosis group(A) [facility] Organism Yeast(A) [facility] Organism Gram Positive Cocci(A) [facility] Organism Gram Negative Rods(A) [facility] Organism Gram Positive Rods(A) [facility] Abdominal Fluid 03/25/2024 1 0:00 AM EDT 03/25/2024 11:30 AM EDT Comment:s/p Whipple w/ po in tolerance, leukocytosis, tachycardia, hypoT - developing abscess (at pancreatic bed - 5x2 cm) Narrative Resulting Agency Comment Spec In Lab Joe Quintero DO MICROBIOLOGY - GENER AL ORDERABLES Performing Organization Address [facility] Co de Phone Number [facility] [place] [address] * Lactate, whole blood, send to lab ([facility]) (03/25/2024 6:00 AM EDT) Only the most recent of2 resultswithin the time period is included. Lactate WB 1.2 0.5 - 2.2 mmol/L [facility] Blood 03/25/2024 6:00 AM EDT 03/25/2024 6:11 AM EDT Narrative Resulting Agency Comment Spec In Lab Rudi Hernandez MD CHEMISTRY ORDERABLES Performing Organization Address [facility] Co de Phone Number [facility] [place] [address] * (ABNORMAL) Beta Hydroxybutyrate (03/25/2024 4:35 AM EDT) Beta-hydroxybuturat e 6.30(H) 0.00 - 0.30 mmol/L [facility] Comment: This test has not been cleared by the [place] FDA. Performance characteristics of this test were determined by [facility] in accordance with CLIA requirements. This laboratory is qualified under CLIA to perform high-complexity testing. Blood Venous Draw / Unknown 03/25/2024 4:35 AM EDT 03/25/2024 4:42 AM EDT Narrative Resulting Agency Comment Spec In Lab Rafi Grimaldo MD CHEMISTRY ORDERABLE S [facility] [place] [address] * Request For 2nd Read CT Abdomen & Pelvis (03/24/2024 7:48 PM EDT) WORKSTATION ID [id number] RAD Anatomical Region Laterality Modality Abdomen, Pelvis [...] who have questions please contact the health landcare officer that requested your imaging first. ? Narrative 03/25/2024 9:19 AM EDT EXAMINATION: REQUEST FOR 2ND READ CT ABDOMEN AND PELVIS CLINICAL HISTORY: s/p Whipple w/ po intolerance, leukocytosis, tachycardia, hypoT - c/f acute findings, ?fluid collection or abscess; Sending Institution [facility]; Date of exam [id number]; I believe [...] c/f acute findings, ?fluid collection or abscess; [facility]; Date of exam [id number]; I believe a [...] [place] hepatis measures 4 x 3.6 cm ([id number] image 28). GALLBLADDER/BILIARY TREE: Status post cholecystectomy. [...] patients who have questions please contactthe health landcare officer that requested your imaging first. Rudi CUETO OUTSIDE INTERPRE TATION ORDERABLES * Film Library- Storage Only CT Chest Abdomen Pelvis (03/24/2024 5:27 PM EDT) Narrative [facility] - 03/24/2024 5:27 PM EDT This exam is auto-finalizing. It's purpose is for storage only. Rudi CUETO FILM LIBRARY ORD ERABLES [place], [place] * Scan, Peripheral Blood (03/08/2024 4:44 AM EDT) Plat estimate Normal [facility] RBC Morphology Abnormal [facility] Hypochromia Slight [facility] Polychromasia Present >5/HPF [facility] Marcy Cells 6-10 /HPF [facility] Blood 03/08/2024 4:44 AM EDT 03/08/2024 5:05 AM EDT Narrative Resulting Agency Comment Spec In Lab Latonia Red MD HEMATOLOGY ORDERABLE S [facility] [place] [address] * XR Abdomen Flat & Upright (03/06/2024 5:29 AM EDT) WORKSTATION ID [id number] RAD Anatomical Region Laterality Modality Abdomen N/A [...] who have questions please contact the health landcare officer that requested your imaging first. ? Narrative [...] patients who have questions please contactthe health landcare officer that requested your imaging first. Rudi Hernandez MD IMG DX ORDERABLES * Sodium, urine, random (03/03/2024 1:19 AM EDT) Sodium, Urine <20 mmol/L [facility] Urine 03/03/2024 1:19 AM EDT 03/03/2024 1:28 AM EDT Narrative Resulting Agency Comment Spec In Lab Rudi Hernandez MD URINE ORDERABLES Performing Organization Address [facility]/ZIP Co de Phone Number [facility] [place] [address] * Creatinine, urine, random (03/03/2024 1:19 AM EDT) Creatinine, Urine 288 mg/dL [facility] Urine 03/03/2024 1:19 AM EDT 03/03/2024 1:28 AM EDT Narrative Resulting Agency Comment Spec In Lab Rudi Hernandez MD URINE ORDERABLES Performing Organization Address [facility] Co de Phone Number [facility] [place] [address] * Green Tube HOLD (03/03/2024 1:04 AM EDT) Green Hold Sample in lab. [facility] Blood Venous Draw / Unknown 03/03/2024 1:04 AM EDT 03/03/2024 1:12 AM EDT Latonia Red MD CHEMISTRY ORDERABLES Performing Organization Address [facility] de Phone Number [facility] [place] [address] * XR Abdomen 1 view (Generic) (03/02/2024 9:54 PM EDT) Only the most recent of2 resultswithin the time period is included. WORKSTATION ID [id number] RAD Anatomical Region Laterality Modality Abdomen N/A [...] who have questions please contact the health landcare officer that requested your imaging first. ? Narrative [...] patients who have questions please contactthe health landcare officer that requested your imaging first. Rudi Hernandez MD IMG DX ORDERABLES * (ABNORMAL) Aspartate Aminotransferase (03/02/2024 5:27 AM EDT) Pathologist [facility] Aspartate Aminotransferase 89(H) 0 - 39 unit/L [facility] Blood 03/02/2024 5:27 AM EDT 03/02/2024 6:06 AM EDT Narrative Resulting Agency Comment Spec In Lab Rudi Hernandez MD CHEMISTRY ORDERABLES [facility] [place] [address] * (ABNORMAL) BLOOD GAS 2 ARTERIAL (03/01/2024 5:49 PM EDT) Only the most recent of4 resultswithin the time period is included. pH, Arterial 7.40 7.35 - 7.45 [facility] PCO2, Arterial 35 35 - 45 mmHg [facility] PO2, Arterial 188(H) 85 - 104 mmHg [facility] Bicarbonate, Arterial 21.3 20.0 - 26.0 mmol/L [facility] Base Excess, Arterial -3.6(L) -3.0 - 3.0 mmol/L [facility] Hgb Blood Gas 14.6 13.7 - 16.5 g/dL [facility] Oxyhemoglobin, Arterial 97.8(H) 94.0 - 97.0 % [facility] Carboxyhemoglob in, Arterial 1.3 % [facility] Comment: Nonsmokers: 0.5-1.5% COHB Smokers: Variable, but usually less than 10% Toxic: 20-30% COHB Lethal: Greater than 60% COHB Methemoglobin, Arterial 0.3 <=1.5 % [facility] Na Whole Blood 131(L) 135 - 145 mmol/L [facility] K Whole Blood 4.3 3.5 - 5.0 mmol/L [facility] Comment: Please note: Patients with WBC >100,000 may have falsely elevated Potassium levels. Contact the Clinical Chemistry Laboratory if there are any questions. ICa Whole Blood 1.12(L) 1.15 - 1.33 mmol/L [facility] Comment: Note: ??Total bilirubin higher than 20 mg/dL may lead to falsely low ionized calcium. CL Whole Blood 102 98 - 107 mmol/L [facility] Gluc Whole Bld 162 65 - 199 mg/dL [facility] Comment:Diabetes: >=200 mg/d L plus symptoms. Lactate WB 2.2 0.5 - 2.2 mmol/L [facility] Blood 03/01/2024 5:49 PM EDT 03/01/2024 5:49 PM EDT Rudi Hernandez MD POINT OF CARE TEST O ELKIN Performing Organization Address City/[facility]/ZIP Co de Phone Number [facility] [place] [address] * Specimen to Pathology (03/01/2024 3:40 PM EDT) Only the most recent of4 resultswithin the time period is included. AP Specimen 03/01/2024 3:40 PM EDT 03/01/2024 3:40 PM EDT Narrative [facility] - 03/01/2024 3:40 PM EDT Specimen requisition ordered. ??Separate Pathology report to follow Rudi Hernandez MD PATHOLOGY/CYTOLOGY O ELKIN [facility] [place] [address] * Surgical Pathology Report (03/01/2024 10:49 AM EDT) Final Diagnosis [id number] ? Location: [id number]; 0404; B The signing [...] for malignancy Electronically signed by: ?China KAUFMAN, [facility] Verified: ??03/10/2024 16:41 ??Pathologist Performed at: ??-[facility] Dept. of Pathology, [place] [address] Production Metal Sprayer: Lee Sutton MD, FCAP, ??[facility] Certificate: [id number] SYNOPTIC Specimen ? Procedure: ??Pancreaticoduodene ctomy (Whipple [...] Category: ??pT3 ? pN Category: ??pN1 ? [facility] 2021 Q1 Release ADDITIONAL STUDIES Whole [...] is inked red. . SPECIMEN PROCESSING Sections/Processing: Clerk sections in 41 cassettes as follows: ?B1: [...] 1.4 x 1.0 x 0.7 cm. Sections/Processing: Clerk sections to include the entire lymph node are submitted in 1 cassettes as follows: ?C1: ??Single quadrisected lymph node D - Labeled/Fixative: Common hepatic artery lymph node #2, fresh. Quantity/Size: Single, 1.2 x 1.2 x 0.7 cm. Tissue Description: Shi-pink lymph node with minimal attached adipose tissue Sections/Processing: Quadrisected and entirely submitted in 2 cassettes labeled D1-D2. ??jnr 03/10/2024 4:41 PM EDT [facility] LYMPH NODE SPECIMEN / Unknown 03/01/2024 10:49 AM EDT 03/01/2024 10:49 AM EDT PANCREATIC STRUCTURE / Unknown 03/01/2024 10:49 AM EDT 03/01/2024 10:49 AM EDT LYMPH NODE SPECIMEN / Unknown 03/01/2024 10:49 AM EDT 03/01/2024 10:49 AM EDT LYMPH NODE SPECIMEN / Unknown 03/01/2024 10:49 AM EDT 03/01/2024 10:49 AM EDT Rudi Hernandez MD PATHOLOGY/CYTOLOGY O RDERABLES Performing Organization Address City/[facility]/ZIP Co de Phone Number [facility] [place] [address] * Type and Screen Validity (03/01/2024 9:31 AM EDT) T&S only valid at [facility] LABORATORY Comment:This Type and Screen result is only valid at the [facility] Blood 03/01/2024 9:31 AM EDT 03/01/2024 9:31 AM EDT Narrative Resulting Agency Comment Spec In Lab Rudi Hernandez MD BLOOD BANK LAB ORDER DEDRA Performing Organization Address City/[facility]/ZIP Co de Phone Number [facility] [place] [address] * ABORH Recheck Status (03/01/2024 9:31 AM EDT) ABORH Recheck Order Order Placed [facility] ABORH Type Recheck Completed [facility] Blood 03/01/2024 9:31 AM EDT 03/01/2024 9:31 AM EDT Narrative Resulting Agency Comment Spec In Lab Rudi Hernandez MD BLOOD BANK LAB ORDER DEDRA Performing Organization Address City/[facility]/ZIP Co de Phone Number [facility] [place] [address] * Type and screen ([facility]P/FABIOLA) (03/01/2024 9:31 AM EDT) ABORH Type A POSITIVE [facility] Patient BB History Not Found [facility] Expires at [id number] on: 03/04/2024 [facility] Ab Screen Interp Negative [facility] Blood 03/01/2024 9:31 AM EDT 03/01/2024 9:31 AM EDT Narrative [facility] - 03/01/2024 9:31 AM EDT This Type and Screen result is only valid at the [facility] Hospital Resulting Agency Comment Spec In Lab Rudi Hernandez MD BLOOD BANK LAB ORDER DEDRA Performing Organization Address City/[facility]/ZIP Co de Phone Number [facility] [place] [address] * XR Fluoro No Rad <1Hr - OR Use (03/01/2024 7:45 AM EDT) Narrative Dicom, Auditing User - 03/01/2024 7:45 AM EDT This exam is auto-finalizing. No interpretation was done. Shyla Bird MD IMG FLUORO BENJI IVEY * [id number] ONLY (03/01/2024 7:21 AM EDT) Narrative Shyla [...] 300 mgI/mL, 2 mL Performed by: ?? Resident/ARTS EDUCATION TEACHER: ? Juan Michelle MD ?? Attending Physician: ? Shyla Bird MD Authorized by: Shyla Bird MD ?? ~~~~~~~~~~~~~~~~~~~~~~~~~~~~~~~~~~~~~~~~~~~~~~~~~~~~~~~~~~~~ Shyla Bird MD FAMILY RESOURCE MANAGEMENT SPECIALIST [facility] S * (ABNORMAL) Creatinine (03/01/2024 7:04 AM EDT) Creatinine 0.77(L) 0.80 - 1.50 mg/dL [facility] Est Glomerular Filtration Rate 110 >=60 mL/min/1. 73 m?? [facility] Comment: This patient's estimated [...] Hernandez MD CHEMISTRY ORDERABLES Performing Organization Address City/[facility]/ZIP Co de Phone Number [facility] [place] [address] * Film Library- Storage Only CT Abdomen & Pelvis (02/26/2024 2:34 PM EDT) Narrative [facility] - 02/26/2024 2:34 PM EDT This exam is auto-finalizing. It's purpose is for storage only. Rudi Hernandez MD IMG FILM LIBRARY ORD ERABLES Performing Organization Address [facility]/ZIP Co de Phone Number [place], [place] * Scan Doc: CT Scan (02/26/2024 12:00 AM EDT) Only the most recent of2 resultswithin the time period is included. Anatomical Region Laterality Modality Other Narrative 02/26/2024 12:00 AM EDT Ordered by an unspecified provider. Scanning Provider MEDIA MGR SCAN EXT O RDR/RSLT * Hepatitis C Antibody (12/25/2022 11:50 AM EDT) Hepatitis C Antibody Negative Negative [facility] Blood 12/25/2022 11:5 0 AM EDT 12/25/2022 12:13 PM EDT Narrative Resulting Agency Comment Spec In Lab Eugenia Barrera APRN CHEMISTRY ORDERABL ES Performing Organization Address City/[facility]/ZIP Co de Phone Number [facility] [place] [address] from Last 3 Months or Most Recently [...] discussion: request for full code Care Teams Gate Cutter Relationship Specialty Start Date End Date Olga Hoffman APRN [address] [place] [address] PCP - General Family Medicine 10/30/22
--- OUTSIDE RECORDS SUMMARY | 2024-05-27 17:57 | XMS_ITS | Encounter Summary ---
[place] [address] Care Team Providers Care Basket Hand Braider Name Role Phone Olga Hoffman APRN Primary Care Provider [phone] Reason for Referral * Consultation (Routine) - Authorized Specialty Diagnoses / Procedures Referred By Janak holland Referred To Contact Diagnoses Type 2 diabetes mellitus with diabetic polyneuropathy, with long-term current use of insulin YaakovozNighat patel MD [facility] DR [place]OCR[place] [address] Astrid Whaley, unisaw operator ID Status Reason Start Date Expiration Date Visits Requested Visits Authorized [id number] Authorized Consult, Test & Treat 05/21/2024 05/21/2025 1 1 Reason for Visit * Consultation (Routine) - Authorized Specialty Diagnoses / Procedures Referred By Janak holland Referred To Contact Endocrinology Diagnoses Type 2 diabetes mellitus without complications Olga Hoffman APRN [address] [place] [address] [facility] Endocrinology [address] [place] [id number] Referral ID Status Reason Start Date Expiration Date Visits Requested Visits Authorized [id number] Authorized Consult, Test & Treat PCP Updated and/or Approved 02/23/2024 02/22/2025 12 12 Encounter Details Date Type Department Care Team (Late st Contact Info) Description 05/21/2024 9:00 AM EDT Office Visit Endocrinology at [facility], [place], [facility] [id number] Nighat López MD [facility] [place] [id number] Type 2 diabetes mellitus with diabetic polyneuropathy, with long-term current use of insulin; Vitamin D deficiency Social History Tobacco Use Types Packs/Day Years Used Date Smoking Tobacco: Never Smokeless Tobacco: Never Alcohol Use Standard Drinks/Week Comments Not Currently 0 (1 standard drink = 0.6 oz pur e alcohol) [facility] Utilities Answer Date Recorded In [...] Mass Index 33.92 05/21/2024 9:04 AM EDT documented in this encounter Patient Instructions * Patient Instructions* Nighat López MD - 05/21/2024 9:00 AM EDT Start taking Vitamin D2 (ergocalciferol) 50,000 units weekly instead of over the counter vitamin D3. Please call to schedule follow up in 1-2 months. Insulin Discharge Instructions Please test blood sugars 4 times daily prior to breakfast, lunch, and dinner. Please test blood sugars with any symptoms. Instructions for Semglee Insulin (LONG ACTING) Inject SEMGLEE 30 units insulin every morning. Check blood glucose (BG) before breakfast to adjust this dose 2. If the blood glucose before breakfast is over 180 for two days in a row, add TWO units of insulin to the next SEMGLEE dose. This increased dose becomes your new dose, continue to increase as needed. 3. If the blood glucose before breakfast is under 100 for two days in a row, subtract TWO units of insulin from the next SEMGLEE dose. This lower dose becomes your new dose, continue to decrease as needed. Instructions for Mealtime Humalog Insulin This is the rapid-acting insulin, used at mealtime to prevent a high BG after you eat. Check your BG before each meal. If your BG is 80 or higher, inject Humalog right before eating. If your BG is lower than 80, or you have symptoms of a low BG, treat the low BG first, then eat your meal and take the Humalog after eating. 3. Inject Humalog for breakfast, lunch, and Dinner. Recommend giving 1 unit for every 10 grams of carbohydrates. For example: a small meal is approximately 30 grams (a sandwich) which would require 3 units. If you added a small bag of chips, this would increase the meal to about 42 grams of carbohydrates and require 4 units. A large meal would be 60 grams of carbs (such a 1.5 cups of pasta plus meat sauce andcheese) this would require 6 units of insulin. In addition to meal time insulin, you will be adding extra insulin to this if your premeal blood sugar is elevated. You will be giving yourself an additional 1 unit for every 20 points above a blood sugar of 150mg/dl. Please follow the below scale: Blood Sugar HUMALOG DOSE 150-170 ADD 1 unit 171-190 ADD 2 units 191-210 ADD 3 units 211-230 ADD 4 units 231-250 ADD 5 units 251- 270 ADD 6 units 271-290 ADD 7 units 291-310 ADD 8 units >310 or HI ADD 9 units If you should forget to take your Humalog before eating and it has been: Less than an hour since you ate your meal, please take your pre-meal calculated dose. More than an hour since you ate, please recheck blood sugar and dose according to the correction scale only. Try to get some extra exercise and drink a lot of water to help with the high blood sugar. Treatment of Low Blood Sugar (Hypoglycemia) If your BG is lower than 80, you are likely to feel shaky, sweaty and lightheaded. This is a signalthat your body needs more sugar. Quickly eat or drink a small serving of something sweet, such as: 4 ounces fruit juice or regular (not diet) soda 6 lifesavers small box of raisins 4 glucose tablets (~15 gm of glucose) If your BG is very low <50, you can double the amount above or take 30 gm of glucose gel/tablets. Sit and rest and you should feel better within a few minutes. Once you are feeling better, try to determine why your BG was so low. Common causes of hypoglycemia include skipping a meal, lots of exercise, too much insulin or any combination of these things. Understanding the cause my help you to avoid another low BG in the future. documented in this encounter Progress Notes * Nighat López MD - 05/21/2024 9:00 AM EDT Images from the original note were not included. Endocrine Outpatient Visit Date of Consultation: 05/21/2024 Consult Requested by: Olga Hoffman APRN Reason for Consultation: Charles Nick is a 48 y.o. 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 He is from [place] originally. He lost 60 lbs since Whipple in February. Drain was removed yesterday. No plan for TPN at this time. Diabetes History: Diagnosed with DM at the age of 43. Current home regimen: Semglee 20 units daily He was on metformin a long time ago, but was stopped because of kidney dysfunction. Previously tried Farxiga, but developed euglycemic DKA. He states he is taking an over the counter Vit D3 pill daily. BG Monitoring: Lina 3 BG almost always >200. No hypoglycemia. Most recent HgA1C on 03/02/24 was 8.9% Typical Diet: 3 meals, not much snacks Breakfast- Black coffee, sometimes cookies Lunch- Varies, today will be chicken blackmon Supper- Varies, chicken parmesan and pasta Typical exercise regimen: None Trouble with hypoglycemia: No Hypoglycemia unawareness: No, gets lightheaded and brain fog Injection site: Abdomen, rotates site, no skin changes Recent admission with DKA: Euglycemic DKA 2/2 SGLT2-I in March 2024 Diabetes Complications Status: Eyes: None Kidneys: Membranous nephropathy previously, but in remission Feet: B/l foot wounds, follows with podiatry at [facility] Sensory: Neuropathy Autonomic: None Cardiac: None Prevention: last eye exam: >1 year last microalbumin : 05/05/24 urine Alb/Cr 36 last Cr: 04/20/24 Cr 0.82 last lipid panel: None ACEi or ARB: no, per nephrology note he is intolerant to RAAS inhibition ASA: no Statin: no ROS: See HPI PMH Past Medical History: Diagnosis Date CKD (chronic kidney disease) stage 3, GFR 30-59 ml/min 01/31/2011 Obesity 01/31/2011 Type 3c diabetes Current Medications: Current Outpatient Medications on File Prior to Visit Medication Sig Dispense Refill [DISCONTINUED] ergocalciferoL, vitamin D2, (vitamin D2) 50,000 unit capsule Take 1 capsule by mouthonce a week. 4 capsule 3 dygqhr-bvzvnito-frmaveu (Zenpep) 40,000-126,000- 168,[address] capsule Take 3 capsules by mouth 3times daily. Take three capsules with meals and 1 capsule with snacks 400 capsule 3 insulin glargine-yfgn (Semglee) 100 unit/mL Solution Inject 10 Units subcutaneously daily. (Patienttaking differently: Inject 19-20 Units subcutaneously daily.) 10 mL 0 acetaminophen [...] 2 times daily. 30 tablet 0 Insulin Galt, Disposable, (BD Ultra-Fine Micro Pen Needle) 32 gauge x 1/4 Needle 1 each by [facility].(Non-Drug; Combo Route) route 2 times daily. 300 [...] facility-administered medications on file prior to visit. Allergy: Allergies Allergen Reactions Penicillins Rash Per pt, received penicillin as a child and experienced a rash, however tolerated amoxicillin since then. Pt unlikely to remain penicillin allergic at this time. Vitals BP 127/89 (BP Location (NBP): Left arm, Patient Position: Sitting, BP Cuff Sizes: Large Adult (32-43 cm)) Pulse 87 Temp 36.8 ??C (98.3 ??F) (Temporal) Resp 16 Ht 188 cm (6' 2) Wt 119.8 kg (264 lb 3.2 oz) SpO2 97% BMI 33.92 kg/m?? Physical Exam: Gen: NAD, talking in clear sentences. HEENT: EOMI, MMM Lungs: No respiratory distress Feet: 3 wounds over right sole. 1 wound over left sole. No signs of infection. DP/PT pulses are palpable bilaterally. Neuro: Moving all extremities. Grossly non-focal. Labs: Latest Reference Range & Units 04/20/24 12:39 Sodium 135 - 145 mMol/L 141 Potassium 3.5 - 5.0 mMol/L 4.1 Chloride 98 - 107 mMol/L 104 Carbon Dioxide 22 - 31 mMol/L 27 Anion Gap 5 - 15 mMol/L 10 Blood Urea Nitrogen 10 - 20 mg/dL 5 (L) Creatinine 0.80 - 1.50 mg/dL 0.82 Est Glomerular Filtration Rate - Male mL/min/1.73 m?? 108 Calcium 8.5 - 10.5 mg/dL 9.2 (L): Data is abnormally low Latest Reference Range & Units 05/05/24 07:19 Albumin / Creatinin Ratio, Urine 0 - 29 mcg/mg Cr 36 (H) Protein / Creatinine Ratio, Urine ratio 0.1 Albumin, Urine mg/L 63.8 Protein, Urine 0 - 12 mg/dL 25 (H) Creatinine, Urine mg/dL mg/dL 178 178 (H): Data is abnormally high Recent Labs 03/02/24 0430 HA1C 8.9* Latest Reference Range & Units 05/05/24 07:19 Vitamin D Total 25 OH 21 - 100 ng/ml 12 (L) Vit D Interp Deficient (L): Data is abnormally low Assessment: Charles Nick is a 48 y.o. male with PMH significant for DM (Last A1C of 8.9%) is here for furthermanagement of diabetes. #Type 3c diabetes with complications (Neuropathy) Patient was diagnosed with T2DM around age 43. He was initially managed on metformin, but this was discontinued after developing membranous nephropathy. He more recently underwent Whipple procedure for duodenal adenocarcinoma. He is now on long acting insulin only with Semglee 20 units daily. 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 Will check C peptide to confirm. His CGM data wasreviewed and his BG is almost always >200. Recommend to increase Semglee to 30 units daily and start Humalog before meals as noted below. Will refer to DM educator to assist with carbohydrate counting and diabetic diet. We reviewed how to manage hypoglycemia today and I provided a prescription for Baqsimi to use in case of emergency. Plan: - Increase Semglee to 30 units daily - Humalog ICR 1:10g (3 units if small meal, 4 units if regular size meal, 6 units if large meal), CF20 for BG >150 - Blood glucose monitoring - continue Lina 3 CGM - Check lab for A1C, LDL, C peptide, glucose - Refer to chemical educator - emergency Baqsimi was provided - F/u in 1-2 months #Vit D deficiency Currently on OTC Vit D3 daily. Vit D last month was very low at 12. Recommend switching to high dose Vit D 50,000 units weekly. -Start Vit D2 50,000 units weekly -Stop OTC Vit D3 -Repeat Vit D in 3 months Patient instructions: Start taking Vitamin D2 (ergocalciferol) 50,000 units weekly instead of over the counter vitamin D3. Please call to schedule follow up in 1-2 months. Insulin Discharge Instructions Please test blood sugars 4 times daily prior to breakfast, lunch, and dinner. Please test blood sugars with any symptoms. Instructions for Semglee Insulin (LONG ACTING) Inject SEMGLEE 30 units insulin every morning. Check blood glucose (BG) before breakfast to adjust this dose 2. If the blood glucose before breakfast is over 180 for two days in a row, add TWO units of insulin to the next SEMGLEE dose. This increased dose becomes your new dose, continue to increase as needed. 3. If the blood glucose before breakfast is under 100 for two days in a row, subtract TWO units of insulin from the next SEMGLEE dose. This lower dose becomes your new dose, continue to decrease as needed. Instructions for Mealtime Humalog Insulin This is the rapid-acting insulin, used at mealtime to prevent a high BG after you eat. Check your BG before each meal. If your BG is 80 or higher, inject Humalog right before eating. If your BG is lower than 80, or you have symptoms of a low BG, treat the low BG first, then eat your meal and take the Humalog after eating. 3. Inject Humalog for breakfast, lunch, and Dinner. Recommend giving 1 unit for every 10 grams of carbohydrates. For example: a small meal is approximately 30 grams (a sandwich) which would require 3 units. If you added a small bag of chips, this would increase the meal to about 42 grams of carbohydrates and require 4 units. A large meal would be 60 grams of carbs (such a 1.5 cups of pasta plus meat sauce andcheese) this would require 6 units of insulin. In addition to meal time insulin, you will be adding extra insulin to this if your premeal blood sugar is elevated. You will be giving yourself an additional 1 unit for every 20 points above a blood sugar of 150mg/dl. Please follow the below scale: Blood Sugar HUMALOG DOSE 150-170 ADD 1 unit 171-190 ADD 2 units 191-210 ADD 3 units 211-230 ADD 4 units 231-250 ADD 5 units 251- 270 ADD 6 units 271-290 ADD 7 units 291-310 ADD 8 units >310 or HI ADD 9 units If you should forget to take your Humalog before eating and it has been: Less than an hour since you ate your meal, please take your pre-meal calculated dose. More than an hour since you ate, please recheck blood sugar and dose according to the correction scale only. Try to get some extra exercise and drink a lot of water to help with the high blood sugar. Treatment of Low Blood Sugar (Hypoglycemia) If your BG is lower than 80, you are likely to feel shaky, sweaty and lightheaded. This is a signalthat your body needs more sugar. Quickly eat or drink a small serving of something sweet, such as: 4 ounces fruit juice or regular (not diet) soda 6 lifesavers small box of raisins 4 glucose tablets (~15 gm of glucose) If your BG is very low <50, you can double the amount above or take 30 gm of glucose gel/tablets. Sit and rest and you should feel better within a few minutes. Once you are feeling better, try to determine why your BG was so low. Common causes of hypoglycemia include skipping a meal, lots of exercise, too much insulin or any combination of these things. Understanding the cause my help you to avoid another low BG in the future. We have reviewed our plan outlined as above with the patient and patient verbalized understanding and is agreeable with this management. All questions were answered. Thank you for allowing us to provide care for this patient. Discussed with Dr. Heidi López PGY-5 [facility] Endocrinology * Brenda Vasquez MD - 05/21/2024 9:00 AM EDT Patient seen and evaluated by me and Dr. López. I agree with her above assessment and plan. S/p Whipple, from type 2 likely to type 3c uncontrolled DM now. Has lost 40lbs yet still uncontrolled. Insulin adjustments as per fellow. We spend 60min in chart review, labs, discussing his uncontrolled DM, writing our notes. Brenda Vasquez MD Professor documented in this encounter Miscellaneous Notes * Addendum Note - Brenda Vasquez MD - 05/21/2024 9:00 AM EDTAddended by: BRENDA VASQUEZ on: 05/21/2024 10:30 AM Modules accepted: Level of Service documented in this encounter Plan of Treatment Upcoming Encounters Date Type Department Care Team (Late st [facility]) Description 05/28/2024 8:00 AM EDT Office Visit Hematology/Oncology at [address] [phone] Rodriguez Fowler MD [facility] [place] [address] Sherry Cedillo APRN [address] [place] [address] DR HEMATOLOGY AND ONCOLOGY [place], [place] [id number] 05/28/2024 8:30 AM EDT Infusion Hematology Oncology at [address] [phone] 05/28/2024 9:30 AM EDT Clinical Support Hematology/Oncology at [address] [phone] [address] [facility] DR HEMATOLOGY [place] [address] Scheduled Referrals Name Type Priority Associated Diagnoses Orde r Schedule Referral to Diabetes Education Outpatient Referral Routine Type 2 diabetes mellitus with diabetic polyneuropathy, with long-term current use of insulin Ordered: 05/21/2024 documented as of this encounter Results * (ABNORMAL) Glucose Non-fasting (05/21/2024 10:13 AM EDT) Glucose 277(H) 65 - 99 mg/dL 05/21/2024 11:[address] [facility] Comment: Fasting Glucose Interpretive Criteria: Normal: 65-99 mg/dL ?? Prediabetes: 100-125 mg/dL ?? Consistent with Diabetes Mellitus: > or = 126 mg/dL ?? Classification and Diagnosis of Diabetes: Standards of Care in Diabetes - 2022. Diabetes Care 202; 46:S19. Fasting is defined as no caloric intake for at least 8 hours. Fasting Status Yes 05/21/2024 11:[address] [facility] Blood VENOUS BLOOD SPECIMEN / Unknown Venipuncture / Unknown 05/21/2024 10:13 AM EDT 05/21/2024 10:13 AM EDT Brenda Vasquez MD CHEMISTRY ORDERABLES Performing Organization Address City/[facility]/ZIP Co de Phone Number [facility] [place] [address] * C-peptide (05/21/2024 10:13 AM EDT) C-Peptide 3.8 1.1 - 4.4 ng/ml 05/21/2024 11:[address] [facility] Comment:Reference intervals for C-peptide (1.1 - 4.4 ng/mL) are only applicable to specimens collected fasting. Results from nonfasted specimens must be placed into clinical context. Fasting Status Yes 05/21/2024 11:[address] [facility] Blood VENOUS BLOOD SPECIMEN / Unknown Venipuncture / Unknown 05/21/2024 10:13 AM EDT 05/21/2024 10:13 AM EDT Brenda Vasquez MD CHEMISTRY ORDERABLES [facility] [place] [address] * LDL Cholesterol, Direct (05/21/2024 10:13 AM EDT) LDL Cholesterol, Direct 54 mg/dL 05/21/2024 11:[address] [facility] Comment: Desirable: <100 mg/dL Above Desirable: [...] 10:13 AM EDT 05/21/2024 10:13 AM EDT Brenda Vasquez MD CHEMISTRY ORDERABLES [facility] [place] [address] * (ABNORMAL) Hemoglobin A1c (05/21/2024 10:13 AM EDT) [facility] Hemoglobin A1c 8.1(H) 4.3 - 5.6 % 05/21/2024 10:[address] [facility] Comment: Per ADA guidelines, without clear [...] red blood cell turnover may not be bilingual sales representative of glycemic control. Reference Interval: 4.3 - 5.6% 5.7 - 6.4%: Consistent with prediabetes >=6.5%: Consistent with diagnosis of diabetes mellitus Estimated Average Glucose 186 mg/dL 05/21/2024 10:[address] [facility] Blood VENOUS BLOOD SPECIMEN / Unknown Venipuncture / Unknown 05/21/2024 10:13 AM EDT 05/21/2024 10:13 AM EDT Brenda Vasquez MD CHEMISTRY ORDERABLES [facility] [place] [address] documented in this encounter Visit Diagnoses Diagnosis Type 2 diabetes mellitus with diabetic polyneuropathy, with long-term current use of insulin Vitamin D deficiency Unspecified vitamin D deficiency Duodenal adenocarcinoma Malignant neoplasm of duodenum documented in this encounter Care Teams Basket Hand Braider Relationship Specialty Start Date End Date Olga Hoffman APRN [address] [place] [address] PCP - General Family Medicine 10/30/22 documented as of this encounter
--- OUTSIDE RECORDS SUMMARY | 2024-05-27 17:57 | XMS_ITS | Encounter Summary ---
Author Organization [facility] Address [facility] [place] [address] Care Team Providers Care Jig Bore Operator Name Role Phone Olga Hoffman APRN Primary Care Provider [phone] Encounter Details Date Type Department Care Team (Latest Contact Info) Description 05/05/2024 Travel Social History Tobacco Use Types Packs/Day Years Used Date Smoking Tobacco: Never Smokeless Tobacco: Never Alcohol Use Standard Drinks/Week Comments Not Currently 0 (1 standard drink = 0.6 oz pur e alcohol) [facility] Utilities Answer Date Recorded In the [...] AM EDT Office Visit Hematology/Oncology at [address] [phone] Rodriguez Fowler MD [facility] [place] [address] Sherry Cedillo APRN [address] [place] [address] HEMATOLOGY AND ONCOLOGY [place], [place] [phone] 05/28/2024 8:30 AM EDT Infusion Hematology Oncology at [address] [phone] 05/28/2024 9:30 AM EDT Clinical Support Hematology/Oncology at [address] [phone] [facility] DR HEMATOLOGY [place] [address] documented as of this encounter Visit Diagnoses Not on filedocumented in this encounter Care Teams Jig Bore Operator Relationship Specialty Start Date End Date Olga Hoffman, DIRECTOR BLOOD BANK [address] [place] [address] PCP - General Family Medicine 10/30/22 documented as of this encounter
--- OUTSIDE RECORDS SUMMARY | 2024-05-27 17:57 | XMS_ITS | Encounter Summary ---
Author Organization [facility] Address [facility] [place] [address] Care Team Providers Care Window Unit Air Conditioning Mechanic Name Role Phone Olga Hoffman APRN Primary Care Provider [phone] Encounter Details Date Type Department Care Team [...] any time in the past 12 m [facility], were you homeless or living in a skilled nursing (including now)? No 03/25/2024 DH IPV Inpatient [...] AM EDT Office Visit Hematology/Oncology at [address] [phone] Rodriguez Fowler MD [facility] [place] [address] Sherry Cedillo APRN [address] [place] [address] HEMATOLOGY AND ONCOLOGY [place], [place] [phone] 05/28/2024 8:30 AM EDT Infusion Hematology Oncology at [address] [phone] 05/28/2024 9:30 AM EDT Clinical Support Hematology/Oncology at [address] [phone] [facility] [place] [address] documented as of this encounter Visit Diagnoses Not on filedocumented in this encounter Care Teams Window Unit Air Conditioning Mechanic Relationship Specialty Start Date End Date Olga Hoffman, ANTHROPOLOGIST PHYSICAL [address] [place] [address] PCP - General Family Medicine 10/30/22 documented as of this encounter
--- OUTSIDE RECORDS SUMMARY | 2024-05-27 17:57 | XMS_ITS | Encounter Summary ---
Author Organization [facility] Address [facility] [place] [address] Care Team Providers Care Dermatologist Managing Partner Name Role Phone Dalton Olgaevy Bell APRN Primary Care Provider +1 [phone] Encounter Details Date Type Department Care Team (Late st Contact Info) Description 05/07/2024 10:30 AM EDT Office Visit Hematology/Oncology at [address] [phone] Rodriguez Fowler MD [facility] [place] [address] Sherry Cedillo FORM BUILDING SUPERVISOR [address] [place] [address] DR HEMATOLOGY AND ONCOLOGY [place], [place] [phone] Duodenal adenocarcinoma; H/O Whipple procedure Social History Tobacco Use Types Packs/Day Years Used Date Smoking Tobacco: Never Smokeless Tobacco: Never Alcohol Use Standard Drinks/Week Comments Not Currently 0 (1 standard drink = 0.6 oz pur e alcohol) [facility] Utilities Answer Date Recorded In the past [...] this encounter Progress Notes * Sherry Cedillo, FORM BUILDING SUPERVISOR - 05/07/2024 10:30 AM EDT Subjective Patient [...] without imunotherapy. 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 6.Obstructive sleep apnea: [...] antibiotics with levaquin and flagyl. Charles is here by himself today. He is [...] symptoms in his fingertips. Soc Hx:Lives in [place], [place] Tob - Never Etoh - Rare [...] after cycle 6-8 to try to avoid [facility]p complications of neuropathy. Dr. Fowler also plans [...] AM EDT Office Visit Hematology/Oncology at [address] [phone] Rodriguez Fowler MD [facility] [place] [address] Sherry Cedillo APRN [address] [place] [address] DR HEMATOLOGY AND ONCOLOGY [place], [place] [id number] 05/28/2024 8:30 AM EDT Infusion Hematology Oncology at [address] [phone] 05/28/2024 9:30 AM EDT Clinical Support Hematology/Oncology at [address] [phone] [facility] DR HEMATOLOGY [place] [address] Scheduled Orders Name Type Priority Associated Diagnoses Orde r Schedule CBC (with Diff) Lab Routine Duodenal adenocarcinoma Every 2 Weeks for 12 Occurrences starting 05/06/2024 until 05/06/2025 documented as of this encounter Visit Diagnoses Diagnosis Duodenal adenocarcinoma Malignant neoplasm of duodenum H/O Whipple procedure Duodenal adenocarcinoma Malignant neoplasm of duodenum documented in this encounter Care Teams Dermatologist Managing Partner Relationship Specialty Start Date End Date Olga Hoffman APRN [address] [place] [address] PCP - General Family Medicine 10/30/22 documented as of this encounter
--- OUTSIDE RECORDS SUMMARY | 2024-05-27 17:57 | XMS_ITS | Encounter Summary ---
Author Organization [facility] Address [facility] [place] [address] Care Team Providers Care Drop Shipment Clerk Name Role Phone Olga Hoffman APRN Primary Care Provider +1 [phone] Encounter Details Date Type Department Care Team (Late st Contact Info) Description 05/25/2024 Orders Only Hematology and Oncology at [facility] [place] [phone] Rodriguez Fowler MD [facility] [place] [address] Social History Tobacco Use Types Packs/Day Years Used Date Smoking Tobacco: Never Smokeless Tobacco: Never Alcohol Use Standard Drinks/Week Comments Not Currently 0 (1 standard drink = 0.6 oz pur e alcohol) [facility] Utilities Answer Date Recorded In the past 12 months has [employer], gas, oil, or water [employer] threatened to shut off services in your [...] in a alf (including now)? No 03/25/2024 DH IPV Inpatient [...] AM EDT Office Visit Hematology/Oncology at [address] [phone] Rodriguez Fowler MD [facility] [place] [address] Sherry Cedillo APRN [address] [place] [address] DR HEMATOLOGY AND ONCOLOGY [place], [place] [id number] 05/28/2024 8:30 AM EDT Infusion Hematology Oncology at [address] [phone] 05/28/2024 9:30 AM EDT Clinical Support Hematology/Oncology at [address] [phone] Leah Rose, RD [facility] DR HEMATOLOGY [place] [address] documented as of this encounter Visit Diagnoses Not on filedocumented in this encounter Care Teams Drop Shipment Clerk Relationship Specialty Start Date End Date Olga Hoffman APRN [address] [place] [address] PCP - General Family Medicine 10/30/22 documented as of this encounter
--- OUTSIDE RECORDS SUMMARY | 2024-05-27 17:57 | XMS_ITS | Encounter Summary ---
[place] [address] Care Team Providers Care Meat Manager Name Role Phone Olga Hoffman APRN Primary Care Provider +1 [phone] Encounter Details Date Type Department Care Team (Latest Contact Info) Description 05/21/2024 10:25 AM EDT Laboratory Appointment Lab [address] [place] [phone] Type 2 diabetes mellitus with diabetic polyneuropathy, with long-term current use of insulin Social History Tobacco Use Types Packs/Day Years [...] time in the past 12 m [facility], were you homeless or living in a [...] 8:00 AM EDT Office Visit Hematology/Oncology at [address] [phone] Rodriguez Fowler MD [facility] [place] [address] Sherry Cedillo APRN [address] [place] [address] DR HEMATOLOGY AND ONCOLOGY [place], [place] [id number] 05/28/2024 8:30 AM EDT Infusion Hematology Oncology at [address] [phone] 05/28/2024 9:30 AM EDT Clinical Support Hematology/Oncology at [address] [phone] [facility] [place] [address] documented as of this encounter Procedures Procedure Name Priority Date/Time Associated Diagnosis Comments C-PEPTIDE Routine 05/21/2024 10:13 AM EDT Type 2 diabetes mellitus with diabetic polyneuropathy, with long-term current use of insulin LDL CHOLESTEROL, DIRECT Routine 05/21/2024 10:13 AM EDT Type 2 diabetes mellitus with diabetic polyneuropathy, with long-term current use of insulin HEMOGLOBIN A1C Routine 05/21/2024 10:13 AM EDT Type 2 diabetes mellitus with diabetic polyneuropathy, with long-term current use of insulin GLUCOSE Routine 05/21/2024 10:13 AM EDT Type 2 diabetes mellitus with diabetic polyneuropathy, with long-term current use of insulin documented in this encounter Results * (ABNORMAL) Glucose Non-fasting (05/21/2024 10:13 AM EDT) Glucose 277(H) 65 - 99 mg/dL 05/21/2024 11:09 AM T [facility] Comment: Fasting Glucose Interpretive Criteria: Normal: 65-99 mg/dL ?? Prediabetes: 100-125 mg/dL ?? Consistent with Diabetes Mellitus: > or = 126 mg/dL ?? Classification and Diagnosis of Diabetes: Standards of Care in Diabetes - 2022. Diabetes Care 202; 46:S19. Fasting is defined as no caloric intake for at least 8 hours. Fasting Status Yes 05/21/2024 11:09 AM [facility] Blood VENOUS BLOOD SPECIMEN / Unknown Venipuncture / Unknown 05/21/2024 10:13 AM EDT 05/21/2024 10:13 AM EDT Rosaline Gordon MD CHEMISTRY ORDERABLES Performing Organization Address [facility] Co de Phone Number [facility] [place] [address] * C-peptide (05/21/2024 10:13 AM EDT) C-Peptide 3.8 1.1 - 4.4 ng/ml 05/21/2024 11:09 AM EDT [facility] Comment:Reference intervals for C-peptide (1.1 - 4.4 ng/mL) are only applicable to specimens collected fasting. Results from nonfasted specimens must be placed into clinical context. Fasting Status Yes 05/21/2024 11:09 AM EDT [facility] Blood VENOUS BLOOD SPECIMEN / Unknown Venipuncture / Unknown 05/21/2024 10:13 AM EDT 05/21/2024 10:13 AM EDT Rosaline Gordon MD CHEMISTRY ORDERABLES Performing Organization Address [facility] Co de Phone Number [facility] [place] [address] * LDL Cholesterol, Direct (05/21/2024 10:13 AM EDT) LDL Cholesterol, Direct 54 mg/dL 05/21/2024 11:09 AM EDT [facility] Comment: Desirable: <100 mg/dL Above [...] AM EDT Rosaline Gordon MD CHEMISTRY ORDERABLES [facility] [place] [address] * (ABNORMAL) Hemoglobin A1c (05/21/2024 10:13 AM EDT) Hemoglobin A1c 8.1(H) 4.3 - 5.6 % 05/21/2024 10:51 AM EDT [facility] Comment: Per ADA guidelines, without [...] red blood cell turnover may not be airport representative of glycemic control. Reference Interval: 4.3 - 5.6% 5.7 - 6.4%: Consistent with prediabetes >=6.5%: Consistent with diagnosis of diabetes mellitus Estimated Average Glucose 186 mg/dL 05/21/2024 10:51 AM EDT [facility] Blood VENOUS BLOOD SPECIMEN / Unknown Venipuncture / Unknown 05/21/2024 10:13 AM EDT 05/21/2024 10:13 AM EDT Rosaline Gordon MD CHEMISTRY ORDERABLES Performing Organization Address City/[facility]/ZIP Co de Phone Number [facility] [place] [address] documented in this encounter Visit Diagnoses Diagnosis Type 2 diabetes mellitus with diabetic polyneuropathy, with long-term current use of insulin Duodenal adenocarcinoma Malignant neoplasm of duodenum documented in this encounter Care Teams Meat Manager Relationship Specialty Start Date End Date Olga Hoffman, YOCASTA [address] [place] [address] PCP - General Family Medicine 10/30/22 documented as of this encounter
--- OUTSIDE RECORDS SUMMARY | 2024-05-27 17:57 | XMS_ITS | Encounter Summary ---
Author Organization [facility] [place] [address] Care Team Providers Care Bulk Gas Specialist Name Role Phone Olga Hoffman APRN Primary Care Provider +1 [phone] Encounter Details Date Type Department Care Team (Late st Contact Info) Description 04/27/2024 Orders [place] [address] Rudi Hernandez MD [facility] [place] [address] Social History Tobacco Use Types Packs/Day Years Used Date Smoking Tobacco: Never Smokeless Tobacco: Never Alcohol Use Standard Drinks/Week Comments Not Currently 0 (1 standard drink = 0.6 oz pur e alcohol) [facility] Utilities Answer Date Recorded In the past 12 months has [facility] electric, gas, oil, or water company threatened [...] the past 12 m [facility], were you homeless or living [...] AM EDT Office Visit Hematology/Oncology at [address] [phone] Rodriguez Fowler MD [facility] [place] [address] Sherry Cedillo APRN [address] [place] [address] DR HEMATOLOGY AND ONCOLOGY [place], [place] [phone] 05/28/2024 8:30 AM EDT Infusion Hematology Oncology at [address] [phone] 05/28/2024 9:30 AM EDT Clinical Support Hematology/Oncology at [address] [phone] Leah Rose, RD [facility] DR HEMATOLOGY [place] [address] documented as of this encounter Visit Diagnoses Not on filedocumented in this encounter Care Teams Bulk Gas Specialist Relationship Specialty Start Date End Date Olga Hoffman APRN [address] [place] [address] PCP - General Family Medicine 10/30/22 documented as of this encounter
--- OUTSIDE RECORDS SUMMARY | 2024-05-27 17:57 | XMS_ITS | Encounter Summary ---
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, were you homeless or living in a [...] 8:00 AM EDT Office Visit Hematology/Oncology at [address] [phone] Rodriguez Fowler MD [facility] [place] [address] Sherry Cedillo APRN [address] [place] [address] [place] [address] 05/28/2024 8:30 AM EDT Infusion Hematology Oncology at [address] [phone] 05/28/2024 9:30 AM EDT Clinical Support Hematology/Oncology at [address] [phone] Leah Rose, ARASH [facility] DR [place] [address] documented as of this encounter Results * [...] CHEMISTRY ORDERABLES [facility] [place] [address] * Phosphorus (05/05/2024 7:19 AM EDT) Phosphorus 3.0 2.5 - 4.5 mg/dL 05/05/2024 7:56 AM EDT [facility] Blood VENOUS BLOOD SPECIMEN / Unknown Venipuncture / Unknown 05/05/2024 7:19 AM EDT 05/05/2024 7:23 AM EDT Shahida Zamudio APRN CHEMISTRY ORDERABLES [facility] [place] [address] * PTH (05/05/2024 7:19 AM EDT) Parathyroid Hormone 50 15 - 65 pg/mL 05/05/2024 8:56 AM EDT [facility] Blood VENOUS BLOOD SPECIMEN / Unknown Venipuncture / Unknown 05/05/2024 7:19 AM EDT 05/05/2024 7:23 AM EDT Shahida Ly Robb RUST CHEMISTRY ORDERABLES Performing Organization Address [facility] Co de Phone Number [facility] [place] [address] * (ABNORMAL) U Albumin/Cre Ratio (05/05/2024 7:19 [...] Zamudio APRN URINE ORDERABLES Performing Organization Address City/[facility]/ZIP Co de Phone Number [facility] [place] [address] * (ABNORMAL) Protein/Creatinine Ratio, urine (05/05/2024 7:19 [...] Zamudio APRN URINE ORDERABLES Performing Organization Address City/[facility] Co de Phone Number [facility] [place] [address] documented in this encounter Visit Diagnoses Diagnosis 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
--- OUTSIDE RECORDS SUMMARY | 2024-05-27 17:57 | XMS_ITS | Encounter Summary ---
Author Organization [facility] Address [facility] [place] [address] Care Team Providers Care Accredited Pharmacy Technician Name Role Phone Olga Hoffman APRN Primary Care Provider +1 [phone] Encounter Details Date Type Department Care Team (Late st Contact Info) Description 04/28/2024 Orders [place] [phone] Silvio Wheeler MD [facility] INTERVENTION[place] [address] Social History Tobacco Use Types Packs/Day Years Used Date Smoking Tobacco: Never Smokeless Tobacco: Never Alcohol Use Standard Drinks/Week Comments Not Currently 0 (1 standard drink = 0.6 oz pur e alcohol) [facility] Utilities Answer Date Recorded In the past 12 months has [employer], gas, oil, or water [employer] threatened to shut off services in your [...] the past [address] [facility], were you homeless or living [...] AM EDT Office Visit Hematology/Oncology at [address] [phone] Rodriguez Fowler MD [facility] [place] [address] Sherry Cedillo APRN [address] [place] [address] DR HEMATOLOGY AND ONCOLOGY [place], [place] [id number] 05/28/2024 8:30 AM EDT Infusion Hematology Oncology at [address] [phone] 05/28/2024 9:30 AM EDT Clinical Support Hematology/Oncology at [address] [phone] [facility] DR HEMATOLOGY [place] [address] documented as of this encounter Visit Diagnoses Not on filedocumented in this encounter Care Teams Accredited Pharmacy Technician Relationship Specialty Start Date End Date Olga Hoffman APRN [address] [place], [place] [address] PCP - General Family Medicine 10/30/22 documented as of this encounter
--- OUTSIDE RECORDS SUMMARY | 2024-05-27 17:57 | XMS_ITS | Encounter Summary ---
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 No 01/23/2023 Housing Stability [...] in the past [address] [facility], were you homeless or living in a group home (including now)? No 03/25/2024 IPV Inpatient [...] AM EDT Office Visit Hematology/Oncology at [address] [phone] Rodriguez Fowler MD [facility] [place] [address] Sherry Cedillo APRN [address] [place] [address] DR HEMATOLOGY AND ONCOLOGY [place], [place] [phone] 05/28/2024 8:30 AM EDT Infusion Hematology Oncology at [address] [phone] 05/28/2024 9:30 AM EDT Clinical Support Hematology/Oncology at [address] [phone] Leah Rose, ARASH [facility] DR HEMATOLOGY [place] [address] documented as of this encounter Procedures Procedure [...] - 100 ng/ml 05/05/2024 10:36 AM EDT [facility] Vitamin D Total 25 OH Interp Deficient 05/05/2024 10:36 AM EDT [facility] Blood VENOUS BLOOD SPECIMEN / Unknown Venipuncture / Unknown 05/05/2024 7:19 AM EDT 05/05/2024 7:23 AM EDT Shahida Zamudio APRN CHEMISTRY ORDERABLES [facility] [place] [address] * Phosphorus (05/05/2024 7:19 AM EDT) Phosphorus 3.0 2.5 - 4.5 mg/dL 05/05/2024 7:56 AM EDT [facility] Blood VENOUS BLOOD SPECIMEN / Unknown Venipuncture / Unknown 05/05/2024 7:19 AM EDT 05/05/2024 7:23 AM EDT Shahida Zamudio APRN CHEMISTRY ORDERABLES Performing Organization Address [facility]/ZIP Co de Phone Number [facility] [place] [address] * PTH (05/05/2024 7:19 AM EDT) Parathyroid Hormone 50 15 - 65 pg/mL 05/05/2024 8:56 AM EDT [facility] Blood VENOUS BLOOD SPECIMEN / Unknown Venipuncture / Unknown 05/05/2024 7:19 AM EDT 05/05/2024 7:23 AM EDT Shahida Zamudio APRN CHEMISTRY ORDERABLES Performing Organization Address City/[facility]/ZIP Co de Phone Number [facility] [place] [address] * (ABNORMAL) U Albumin/Cre Ratio (05/05/2024 7:19 AM EDT) Albumin, Urine 63.8 mg/L 05/05/2024 11:45 AM EDT [facility] Creatinine, Urine 178 mg/dL 024 11:45 AM EDT [facility] Albumin / Creatinine Ratio, Urine 36(H) 0 - 29 mcg/mg Cr 05/05/2024 11:45 AM EDT [facility] Comment: Reference Ranges: ?? [...] AM EDT Shahida Zamudio APRN URINE ORDERABLES [facility] [place] [address] * (ABNORMAL) Protein/Creatinine Ratio, urine (05/05/2024 7:19 AM EDT) Protein, Urine 25(H) 0 - 12 mg/dL 05/05/2024 11:45 AM EDT [facility] Creatinine, Urine 178 mg/dL 05/05/2024 11:45 AM EDT [facility] Protein / Creatinine Ratio, Urine 0.1 ratio 05/05/2024 11:45 AM EDT [facility] Urine URINE SPECIMEN / Unknown Non Blood Collection / Unknown 05/05/2024 7:19 AM EDT 05/05/2024 7:23 AM EDT Shahida Zamudio APRN [place] [address] documented in this encounter Visit Diagnoses Diagnosis 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
--- OUTSIDE RECORDS SUMMARY | 2024-05-27 17:58 | XMS_ITS | Encounter Summary ---
Author Organization [facility] Address [facility] [place] [address] Care Team Providers Care Cloud Developer Name Role Phone Olga Hoffman APRN Primary Care Provider [phone] [phone] Encounter Details Date Type Department Care Team (Latest Contact Info) Description 04/07/2024 Travel Social History Tobacco Use Types Packs/Day Years Used Date Smoking Tobacco: Never Smokeless Tobacco: Never Alcohol Use Standard Drinks/Week Comments Not Currently 0 (1 standard drink = 0.6 oz pur e alcohol) [facility] Utilities Answer Date Recorded In the [...] in the past 12 m [facility], were you homeless or living in a [...] AM EDT Office Visit Hematology/Oncology at [address] [phone] Rodriguez Fowler MD [facility] [place] [address] Sherry Cedillo APRN [address] [place] [address] HEMATOLOGY AND ONCOLOGY [place], [place] [phone] 05/28/2024 8:30 AM EDT Infusion Hematology Oncology at [address] [phone] 05/28/2024 9:30 AM EDT Clinical Support Hematology/Oncology at [address] [phone] [facility] DR [place] [address] documented as of this encounter Visit Diagnoses Not on filedocumented in this encounter Care Teams Cloud Developer Relationship Specialty Start Date End Date Olga Hoffman, SALON PROFESSIONAL [address] [place] [address] PCP - General Family Medicine 10/30/22 documented as of this encounter
--- OUTSIDE RECORDS SUMMARY | 2024-05-27 17:58 | XMS_ITS | Encounter Summary ---
Author Organization [facility] [address] Care Team Providers Care Miller Head Assistant Wet Process Name Role Phone Olga Hoffman APRN Primary Care Provider [phone] [phone] Reason for Referral * Diagnostic Test (Routine) - Closed Specialty Diagnoses / Procedures Referred By Contac t Referred To Contact Radiology Diagnoses H/O Whipple procedure Procedures CT Abdomen & Pelvis w Contrast Rudi Hernandez MD [facility] [place] [address] [facility] [place] [address] Referral ID Status Reason Start Date Expiration Date V isits Requested Visits Authorized [id number] Closed Specialty Service Requested 04/08/2024 10/09/2025 1 1 Reason for Visit * Diagnostic Test (Routine) - Closed Specialty Diagnoses / Procedures Referred By Contac t Referred To Contact Radiology Diagnoses H/O Whipple procedure Procedures CT Abdomen & Pelvis w Contrast Rudi Hernandez MD [facility] [place] [address] [facility] [place] [address] Referral ID Status Reason Start Date Expiration Date V isits Requested Visits Authorized [id number] Closed Specialty Service Requested 04/08/2024 10/09/2025 1 1 Encounter Details Date Type Department Care Team (Latest Contact Info) Description 04/08/2024 11:06 AM EDT - 04/08/2024 11:59 PM EDT Hospital Encounter CT Scan at [facility] [place] [address] Rudi Hernandez MD [facility] [place] [address] H/O Whipple procedure Discharge Disposition: Home Social [...] 2 times daily. 30 tablet 03/08/2024 Insulin [place], Disposable, (BD Ultra-Fine Micro Pen Needle) 32 gauge x 1/4 Needle 1 each by [facility]Non-Drug; Combo Route) route 2 times daily. 300 [...] for 14 days. 28 tablet 04/08/2024 04/21/2024 btshdt-pexbdkky-bytkb se (Zenpep) 40,000-126,000- 168,000 unit capsuleIndications:H/ O Whipple procedure Take 2 capsules by mouth 3 times daily. Take 2 capsules with meals and 1 capsule with snacks. 300 capsule 3 03/22/2024 04/09/2024 documented as of this encounter Plan of Treatment Upcoming Encounters Date Type Department Care Team (Late st Contact Info) Description 05/28/2024 8:00 AM EDT Office Visit Hematology/Oncology at [address] [phone] Rodriguez Fowler MD [facility] [place] [address] Sherry Cedillo APRN [address] [place] [address] [place] [address] 05/28/2024 8:30 AM EDT Infusion Hematology Oncology at [address] [phone] 05/28/2024 9:30 AM EDT Clinical Support Hematology/Oncology at [address] [phone] Leah Rose, RD [facility] DR HEMATOLOGY [place] [address] documented as of this encounter Procedures Procedure Name Priority Date/Time Associated Diagnosis Comments CT ABDOMEN AND PELVIS W CONTRAST Routine 04/08/2024 11:27 AM EDT H/O Whipple procedure documented in this encounter Results * CT Abdomen & Pelvis w Contrast (04/08/2024 11:27 AM EDT) [employer] WORKSTATION ID [id number] RAD Anatomical Region Laterality Modality Abdomen, Pelvis [...] have questions please contact the health care assistant that requested your imaging first. ? Electronically signed by: Flakito Cummings MD, [facility] ([phone]), at 04/09/2024 10:10 AM Narrative 04/09/2024 10:10 [...] who have questions please contactthe health care assistant that requested your imaging first. Electronically signed by: Flakito Cummings MD, [facility]([phone]), at 04/09/2024 10:10 AM Rudi Hernandez MD [...] mLs documented in this encounter Care Teams Miller Head Assistant Wet Process Relationship Specialty Start Date End Date Olga Hoffman, [employer] [address] [place] [address] PCP - General Family Medicine 10/30/22 documented as of this encounter
--- OUTSIDE RECORDS SUMMARY | 2024-05-27 17:58 | XMS_ITS | Encounter Summary ---
Author Organization [facility] [place] [address] Care Team Providers Care Hourly Shift Manager Name Role Phone Olga Hoffman APRN Primary Care Provider [phone] [phone] Reason for Referral * Diagnostic Test (Routine) - New Request Specialty Diagnoses / Procedures Referred By Contac t Referred To Contact Radiology Diagnoses Perihepatic abscess Duodenal adenocarcinoma Obesity due to excess calories with serious comorbidity, unspecified classification Procedures IR Drain Check/Change/Remove Joe Quintero, [facility] [place] [address] [place] [address] Referral ID Status Reason Start Date Expiration Date Visits Requested Visits Authorized [id number] New Request Specialty Service Requested 03/25/2024 09/25/2025 1 1 Reason for Visit * Diagnostic Test (Routine) - New Request Specialty Diagnoses / Procedures Referred By Contac t Referred To Contact Radiology Diagnoses Perihepatic abscess Duodenal adenocarcinoma Obesity due to excess calories with serious comorbidity, unspecified classification Procedures IR Drain Check/Change/Remove Joe Quintero, [facility] [place] [address] [place] [address] Referral ID Status Reason Start Date Expiration Date Visits Requested Visits Authorized [id number] New Request Specialty Service Requested 03/25/2024 09/25/2025 1 1 Encounter Details Date Type Department Care Team (Latest Contact Info) Description 04/08/2024 10:50 AM EDT - 04/08/2024 11:05 AM EDT Hospital [place] [phone] Perihepatic abscess; Duodenal adenocarcinoma; Obesity due to excess calories with serious comorbidity, unspecified classification Discharge Disposition: Home Social History Tobacco Use Types Packs/Day Years Used Date Smoking Tobacco: Never Smokeless Tobacco: Never Alcohol Use Standard Drinks/Week Comments Not Currently 0 (1 standard drink = 0.6 oz pur e alcohol) [facility] Utilities Answer Date Recorded In the [...] any time in the past 12 m [facility], were you homeless or living in a [...] is during regular office hours, please call [phone]. If it is after regular office hours, or on weekends or holidays, please call [phone] and ask to speak to the Final Finisher oncology physician for Interventional Radiology. XX You have received [...] 2 times daily. 30 tablet 03/08/2024 Insulin [place], Disposable, (BD Ultra-Fine Micro Pen Needle) 32 gauge x 1/[address] Need[address] [facility].(Non-Drug; Combo Route) route 2 times daily. 300 [...] for 7 days. 42 tablet 04/01/2024 04/08/2024 mkmmcb-mofekzuw-mfmrp se (Zenpep) 40,000-126,000- 168,000 unit capsuleIndications:H/ O Whipple procedure Take 2 capsules by mouth 3 times daily. Take 2 capsules with meals and 1 capsule with snacks. 300 capsule 3 03/22/2024 04/09/2024 documented as of this encounter Progress Notes * Jaki Cardona RN - 04/08/2024 12:12 PM EDT ANGIO NURSING DATABASE Name: Charles Nick Date of : 1975 AGE: 48 y.o. Address: [facility] [address] [place] [address] (home) [phone] (work) Mobile: Telephone Information: Referring Provider: Joe Quintero REASON FOR VISIT: Order Questions Answers Where will study be performed? [facility] Radiology [120] To be scheduled Next available [...] Questions Answers Where will study be performed? [facility] Radiology [120] To be scheduled Next available [...] daily for 7 days. 42 tablet 0 aslzkj-fhdrzumh-gzktqvt (Zenpep) 40,000-126,000- 168,[address] capsule Take [...] 2 times daily. 30 tablet 0 Insulin [place], Disposable, (BD Ultra-Fine Micro Pen Needle) 32 gauge x 1/4 Need[address] [facility].(Non-Drug; Combo Route) route 2 times daily. 300 [...] APRN 4 Units at 04/01/24 1307 [DISCONTINUED] xxooqq-frgurotk-pfcmfzt DR (Zenpep 20) 20,000-63,000- 84,000 unit per [...] mL 5-20 mLIntravenous Q1 Min PRN Gary Mtz PA [DISCONTINUED] lidocaine (Xylocaine) 1% (10 mg/mL) [...] CT Guided Drain Pancreatic/Peripancreatic Joe Quintero DO [facility] RAD CT SCAN IR BIOPSY LIVER PERCUTANEOUS - NON-FOCAL PARENCHYMA 01/07/2023 IR Biopsy Liver Percutaneous 01/07/2023 Juan Wright MD [facility] INTERVENTIONL RAD PRO PART REMV PANC, PROX+REMV DUOD+ANAST N/A 03/01/2024 @CHAKA PROCEDURE (WRVU 52.84) performed by Rudi Hernandez MD at [facility] MAIN OR PRO TRANSFER SKIN PEDICLE FLAP N/A 03/01/2024 TRANSFER, INTERMEDIATE, ANY PEDICLE FLAP, ANY LOCATION (WRVU 4.77) performed by Rudi Hernandez MD at [facility] MAIN OR Social History and Habits: Social [...] AM EDT Office Visit Hematology/Oncology at [address] [phone] Rodriguez Fowler MD [facility] [place] [place] [address] Sherry Cedillo [address] HEMATOLOGY [place] [address] 05/28/2024 8:30 AM EDT Infusion Hematology Oncology at [address] [phone] 05/28/2024 9:30 AM EDT Clinical Support Hematology/Oncology at [address] [phone] [facility] DR HEMATOLOGY [place] [address] documented as of this encounter Procedures Procedure [...] Ayush Feliciano MD Attending: Dr. Wright Joe Villatoro [facility] IR ORDERABLES documented in this encounter [...] mLs documented in this encounter Care Teams Hourly Shift Manager Relationship Specialty Start Date End Date Olga Hoffman APRN [address] [place] [address] PCP - General Family Medicine 10/30/22 documented as of this encounter
--- OUTSIDE RECORDS SUMMARY | 2024-05-27 17:58 | XMS_ITS | Encounter Summary ---
[place] [address] Care Team Providers Care High Voltage Electrician Name Role Phone Olga Hoffman APRN Primary Care Provider [phone] [phone] Reason for Referral * Diagnostic Test (Routine) - New Request Specialty Diagnoses / Procedures Referred By Contac t Referred To Contact Radiology Diagnoses Perihepatic abscess Procedures IR Drain Check/Change/Remove Silvio Wheeler MD [facility] DR [place]ION[place] [address] [place] [address] Referral ID Status Reason Start Date Expiration Date Visits Requested Visits Authorized [id number] New Request Specialty Service Requested 04/21/2024 10/22/2025 1 1 * Diagnostic Test (Routine) - New Request Specialty Diagnoses / Procedures Referred By Contac t Referred To Contact Radiology Diagnoses Perihepatic abscess Duodenal adenocarcinoma Procedures IR Drain Check/Change/Remove Tejas Henao PA [facility] DR [place]ION[place] [address] [facility] [place] [address] Referral ID Status Reason Start Date Expiration Date Visits Requested Visits Authorized [id number] New Request Specialty Service Requested 04/09/2024 10/10/2025 1 1 Reason for Visit * Diagnostic Test (Routine) - New Request Specialty Diagnoses / Procedures Referred By Janak holland Referred To Contact Radiology Diagnoses Perihepatic abscess Duodenal adenocarcinoma Procedures IR Drain Check/Change/Remove Tejas Henao PA [facility] DR [place]ION[place] [address] [facility] [place] [address] Referral ID Status Reason Start Date Expiration Date Visits Requested Visits Authorized [id number] New Request Specialty Service Requested 04/09/2024 10/10/2025 1 1 Encounter Details Date Type Department Care Team (Latest Contact Info) Description 04/21/2024 10:13 AM EDT - 04/21/2024 11:59 PM EDT Hospital [place] [address] Juan Wright MD [facility] [place]ION[place] [address] Perihepatic abscess; Duodenal adenocarcinoma Discharge Disposition: Home Social History Tobacco Use Types Packs/Day Years Used Date Smoking Tobacco: Never Smokeless Tobacco: Never Alcohol Use Standard Drinks/Week Comments Not Currently 0 (1 standard drink = 0.6 oz pur e alcohol) [facility] Utilities Answer Date Recorded In the past 12 months has [employer], gas, oil, or water [employer] threatened to shut off services in your [...] in the past 12 m [facility], were you homeless or living in a group home (including now)? No 03/25/2024 DH IPV [...] is during regular office hours, please call [phone]. If it is after regular office hours, or on weekends or holidays, please call [phone] and ask to speak to the Employment Security Officer educational resource center teacher for Interventional Radiology. XX You have received [...] Sig Dispensed Refills Start Date End Date ifqafm-wrhvjxad-pwgfb se (Zenpep) 40,000-126,000- 168,[address] capsule [...] 2 times daily. 30 tablet 03/08/2024 Insulin [place], Disposable, (BD Ultra-Fine Micro Pen Needle) 32 gauge x 1/4 Needle 1 each by [facility].(Non-Drug; Combo Route) route 2 [...] of : 1975 AGE: 48 y.o. Address: [facility] [address] [facility] [address] (home) [phone] (work) Mobile: Telephone Information: Referring Provider: Tejas Henao REASON FOR VISIT: Order Questions Answers Where will study be performed? [facility] Radiology [120] To be scheduled Next available [...] documented in this encounter H&P Notes * Lenore, Latonia E, PA - 04/12/2024 11:19 AM [...] Questions Answers Where will study be performed? [facility] Radiology [120] To be scheduled Next available [...] Prior to Encounter Medication Sig Dispense Refill nlhzja-nzqetpsw-efdaygc (Zenpep) 40,000-126,000- 168,[address] capsule Take [...] 2 times daily. 30 tablet 0 Insulin [place], Disposable, (BD Ultra-Fine Micro Pen Needle) 32 gauge x 1/4 Needle 1 each by [facility].(Non-Drug; Combo Route) route 2 [...] 03/25/2024 CT Guided Drain Pancreatic/Peripancreatic Joe Quintero, [facility] RAD CT SCAN IR BIOPSY LIVER PERCUTANEOUS - NON-FOCAL PARENCHYMA 01/07/2023 IR Biopsy Liver Percutaneous 01/07/2023 Juan Wright MD [facility] INTERVENTIONL RAD IR DRAIN CHECK/CHANGE/REMOVE 04/08/2024 IR Drain Check/Change/Remove 04/08/2024 Juan Wright MD [facility] INTERVENTIONL RAD PRO PART REMV PANC, PROX+REMV DUOD+ANAST N/A 03/01/2024 @NUVIAIPPLE PROCEDURE (WRVU 52.84) performed by Rudi Hernandez MD at [facility] MAIN OR PRO TRANSFER SKIN PEDICLE FLAP N/A 03/01/2024 TRANSFER, INTERMEDIATE, ANY PEDICLE FLAP, ANY LOCATION (WRVU 4.77) performed by Rudi Hernandez MD at [facility] MAIN OR Social History and Habits: Social [...] 8:00 AM EDT Office Visit Hematology/Oncology at [address] [phone] Rodriguez Fowler MD [facility] [place] [address] Sherry Cedillo APRN [address] [place] [address] DR HEMATOLOGY AND ONCOLOGY [place], [place] [address] 05/28/2024 8:30 AM EDT Infusion Hematology Oncology at [address] [phone] 05/28/2024 9:30 AM EDT Clinical Support Hematology/Oncology at [address] [phone] [address] [facility] DR HEMATOLOGY [place] [address] documented as of this encounter Procedures Procedure [...] sterile barrier technique was used throughout. ?? Demolition Specialist fluoroscopic images were obtained. ??Contrast was [...] Indication for Procedure: Per Latonia KIM, Charles A Park is a 48 y.o. male with PMH [...] Summer Logan performed this procedure. ? Juan Wright MD [facility] [place] ORDERABLES documented in this encounter Visit Diagnoses Diagnosis Perihepatic abscess Peritoneal abscess Duodenal adenocarcinoma Malignant neoplasm of duodenum Perihepatic abscess Peritoneal abscess Duodenal adenocarcinoma Malignant [...] (Top), EVERY 4 HOURS PRN, Starting on 04/21/24 at 1057, Until Aline 04/22/24 at 0434, Pain, For use in Interventional Radiology (IR) only for procedure with direct provider supervision and verbal order., Angio/IR (Intra-Procedure), Routine Given 04/21/2024 11:02 AM EDT 6 mLs documented in this encounter Care Teams High Voltage Electrician Relationship Specialty Start Date End Date Olga Hoffman APRN [address] [place] [address] PCP - General Family Medicine 10/30/22 documented as of this encounter
--- OUTSIDE RECORDS SUMMARY | 2024-05-27 17:58 | XMS_ITS | Encounter Summary ---
Author Organization [facility] [place] [address] Care Team Providers Care Needle Setter Name Role Phone Olga Hoffman APRN Primary Care Provider +1 [phone] Encounter Details Date Type Department Care Team (Late st Contact Info) Description 04/09/2024 Orders [place] [address] Rudi Hernandez MD [facility] [place] [address] Social History Tobacco Use Types Packs/Day Years Used Date Smoking Tobacco: Never Smokeless Tobacco: Never Alcohol Use Standard Drinks/Week Comments Not Currently 0 (1 standard drink = 0.6 oz pur e alcohol) [facility] Utilities Answer Date Recorded In the past 12 months has [facility] electric, gas, oil, or water company threatened [...] in a residential (including now)? No 03/25/2024 DH IPV Inpatient [...] AM EDT Office Visit Hematology/Oncology at [address] [phone] Rodriguez Fowler MD [facility] [place] [address] Sherry Cedillo APRN [address] [place] [address] DR HEMATOLOGY AND ONCOLOGY [place], [place] [phone] 05/28/2024 8:30 AM EDT Infusion Hematology Oncology at [address] [phone] 05/28/2024 9:30 AM EDT Clinical Support Hematology/Oncology at [address] [phone] Leah Rose, RD [facility] [place] [address] documented as of this encounter Visit Diagnoses Not on filedocumented in this encounter Care Teams Needle Setter Relationship Specialty Start Date End Date Olga Hoffman APRN [address] [place] [address] PCP - General Family Medicine 10/30/22 documented as of this encounter
--- OUTSIDE RECORDS SUMMARY | 2024-05-27 17:58 | XMS_ITS | Encounter Summary ---
Author Organization [facility] Address One [facility] [place] [address] Care Team Providers Care Electronic Induction Hardener Name Role Phone Olga Hoffman APRN Primary Care Provider [phone] [phone] Encounter Details Date Type Department Care Team (Latest Contact Info) Description 04/01/2024 Travel Social History Tobacco Use Types Packs/Day Years Used Date Smoking Tobacco: Never Smokeless Tobacco: Never Alcohol Use Standard Drinks/Week Comments Not Currently 0 (1 standard drink = 0.6 oz pur e alcohol) [facility] Utilities Answer Date Recorded [...] living in a fdc (including now)? No 03/25/2024 DH IPV Inpatient [...] AM EDT Office Visit Hematology/Oncology at [address] [phone] Rodriguez Fowler MD [facility] [place] [address] Sherry Cedillo APRN [address] [place] [address] HEMATOLOGY AND ONCOLOGY [place], [place] [phone] 05/28/2024 8:30 AM EDT Infusion Hematology Oncology at [address] [phone] 05/28/2024 9:30 AM EDT Clinical Support Hematology/Oncology at [address] [phone] [facility] DR [place] [address] documented as of this encounter Visit Diagnoses Not on filedocumented in this encounter Care Teams Electronic Induction Hardener Relationship Specialty Start Date End Date Olga Hoffman, ACCORDION REPAIRER [address] [place] [address] PCP - General Family Medicine 10/30/22 documented as of this encounter
--- OUTSIDE RECORDS SUMMARY | 2024-05-27 17:58 | XMS_ITS | Encounter Summary ---
Author Organization [place] [address] Care Team Providers Care Reheater Name Role Phone Olga Hoffman APRN Primary Care Provider +1 -[phone] Reason for Referral * Diagnostic Test (Routine) - Closed Specialty Diagnoses / Procedures Referred By Contac t Referred To Contact Radiology Diagnoses Duodenal adenocarcinoma Procedures IR Mediport Placement Rodriguez Fowler MD [facility] [place] [address] [facility] [place] [address] Referral ID Status Reason Start Date Expiration Date V isits Requested Visits Authorized [id number] Closed Specialty Service Requested 04/20/2024 10/21/2025 1 1 Reason for Visit * Diagnostic Test (Routine) - Closed Specialty Diagnoses / Procedures Referred By Contac t Referred To Contact Radiology Diagnoses Duodenal adenocarcinoma Procedures IR Mediport Placement Rodriguez Fowler MD [facility] [place] [address] [place] [address] Referral ID Status Reason Start Date Expiration Date V isits Requested Visits Authorized [id number] Closed Specialty Service Requested 04/20/2024 10/21/2025 1 1 Encounter Details Date Type Department Care Team (Latest Contact Info) Description 04/26/2024 9:17 AM EDT - 04/26/2024 11:59 PM EDT Hospital Encounter Radiology [place] [facility] [place] [address] Rodriguez Fowler MD [facility] [place] [address] Duodenal adenocarcinoma Discharge Disposition: Home Social History [...] from the original note were not included. [facility] Department of Vascular and Interventional Radiology Discharge [...] provided with an ID card stating the baler operator and type of port you have. Please carry this with you in a safe place. Bandage: There is a sterile dressing over the port site consisting of small gauze with a clear dressing (Tegaderm or [id number] ). This dressing should be left in place for 48 hours. If the clear dressing becomes loose you should place tape over the edges to secure it in place. Note: If you have steri-strips beneath your dressing, simply allow them to fall off. Do not peel them off. There may be [place]-knott (skin glue) also, allow this to flake [...] is during regular office hours, please call [phone]. If it is after regular office hours, or on weekends or holidays, please call [phone] and ask to speak to the Dog Trainer button buttonhole marker for Interventional Radiology. XXX You have received [...] is during regular office hours, please call [phone]. If it is after regular office hours, or on weekends or holidays, please call [phone] and ask to speak to the Dog Trainer button buttonhole marker for Interventional Radiology. XX You have received [...] Sig Dispensed Refills Start Date End Date izldsj-qrvfmxaz-iewna se (Zenpep) 40,000-126,000- 168,[address] capsule [...] 2 times daily. 30 tablet 03/08/2024 Insulin [place], Disposable, (BD Ultra-Fine Micro Pen Needle) 32 gauge x 1/4 Needle 1 each by [facility].(Non-Drug; Combo Route) route 2 times [...] of : 1975 AGE: 48 y.o. Address: [address] [place] [phone] (home) [phone] (work) Mobile: Telephone Information: Referring Provider: Rodriguez Fowler REASON FOR VISIT: Order Questions Answers Where will study be performed? [facility] Radiology [120] To be scheduled Ordering department [...] Prior to Visit Medication Sig Dispense Refill pamsvp-mljldmis-xysstom (Zenpep) 40,000-126,000- 168,[address] capsule Take [...] 2 times daily. 30 tablet 0 Insulin [place], Disposable, (BD Ultra-Fine Micro Pen Needle) 32 gauge x 1/4 Needle 1 each by [facility].(Non-Drug; Combo Route) route 2 times [...] 03/25/2024 CT Guided Drain Pancreatic/Peripancreatic Joe Quintero, [facility] RAD CT SCAN IR BIOPSY LIVER PERCUTANEOUS - NON-FOCAL PARENCHYMA 01/07/2023 IR Biopsy Liver Percutaneous 01/07/2023 Juan Wright MD [facility] INTERVENTIONL RAD IR DRAIN CHECK/CHANGE/REMOVE 04/08/2024 IR Drain Check/Change/Remove 04/08/2024 Juan Wright MD [facility] INTERVENTIONL RAD PRO PART REMV PANC, PROX+REMV DUOD+ANAST N/A 03/01/2024 @CHAKA PROCEDURE (WRVU 52.84) performed by Rudi Hernandez MD at [facility] MAIN OR PRO TRANSFER SKIN PEDICLE FLAP N/A 03/01/2024 TRANSFER, INTERMEDIATE, ANY PEDICLE FLAP, ANY LOCATION (WRVU 4.77) performed by Rdui Hernandez MD at [facility] MAIN OR Social History and Habits: [...] AM EDT Office Visit Hematology/Oncology at [address] [phone] Rodriguez Fowler MD [facility] [place] [address] Sherry Cedillo APRN [address] [place] [address] DR HEMATOLOGY AND ONCOLOGY [place], [place] [id number] 05/28/2024 8:30 AM EDT Infusion Hematology Oncology at [address] [phone] 05/28/2024 9:30 AM EDT Clinical Support Hematology/Oncology at [address] [phone] [facility] DR [place] [address] documented as of this encounter Procedures Procedure [...] chest port implant Indication: Duodenal adenocarcinoma, [facility] central venous access for chemotherapy Procedure summary: [...] - 199 mg/dL 04/26/2024 9:52 AM EDT [facility] Comment:Supplemental ranges: <140 mg/dL before meals <180 mg/dL all other times of the day. Blood CAPILLARY BLOOD / Unknown 04/26/2024 9:51 AM EDT 04/26/2024 9:52 AM EDT Rodriguez Fowler MD POINT OF CARE TEST O RDERABLES [facility] [place] [address] documented in this encounter Visit Diagnoses Diagnosis [...] mg documented in this encounter Care Teams Reheater Relationship Specialty Start Date End Date Olga Hoffman APRN [address] [place] [address] PCP - General Family Medicine 10/30/22 documented as of this encounter
--- OUTSIDE RECORDS SUMMARY | 2024-05-27 17:58 | XMS_ITS | Encounter Summary ---
Author Organization [facility] Address [facility] [place] [address] Care Team Providers Care Manager Trust Name Role Phone Olga Hoffman APRN Primary Care Provider +1 [phone] Encounter Details Date Type Department Care Team (Late st Contact Info) Description 04/21/2024 9:00 AM EDT Office [place] [address] Rudi Hernandez MD [facility] [place] [address] H/O Whipple procedure Social History Tobacco Use Types Packs/Day Years Used Date Smoking Tobacco: Never Smokeless Tobacco: Never Alcohol Use Standard Drinks/Week Comments Not Currently 0 (1 standard drink = 0.6 oz pur e alcohol) [facility] Utilities Answer Date Recorded In the past 12 months has [employer], gas, oil, or water [employer] threatened to shut off services in your [...] time in the past 12 m [facility], were you homeless or living in [...] Nick is now 2 weeks postop from [place]. He has been home for over a [...] abscess/pancreas leak on 03/24 and was taken arlnie IR drain placement. He was discharged on [...] AM EDT Office Visit Hematology/Oncology at [address] [phone] Rodriguez Fowler MD [facility] [place] [address] Sherry Cedillo APRN [address] [place] [address] DR HEMATOLOGY [place] [address] 05/28/2024 8:30 AM EDT Infusion Hematology Oncology at [address] [phone] 05/28/2024 9:30 AM EDT Clinical Support Hematology/Oncology at [address] [phone] Leah Rose, RD [facility] DR HEMATOLOGY [place] [address] documented as of this encounter Visit Diagnoses Diagnosis H/O Whipple procedure Duodenal adenocarcinoma Malignant neoplasm of duodenum documented in this encounter Care Teams Manager Trust Relationship Specialty Start Date End Date Olga Hoffman APRN [address] [place] [address] PCP - General Family Medicine 10/30/22 documented as of this encounter
--- OUTSIDE RECORDS SUMMARY | 2024-05-27 17:58 | XMS_ITS | Encounter Summary ---
Author Organization [facility] Address [facility] [place] [address] Care Team Providers Care Manager Music Name Role Phone DaltonAbigail choihryn Arabella RUST Primary Care Provider +1 -[phone] Encounter Details Date Type Department Care Team (Late st Contact Info) Description 04/20/2024 Notes [place] [phone] Latonia Oscar PA [facility] [place] [address] Social History Tobacco Use Types Packs/Day Years Used Date Smoking Tobacco: Never Smokeless Tobacco: Never Alcohol Use Standard Drinks/Week Comments Not Currently 0 (1 standard drink = 0.6 oz pur e alcohol) [facility] Utilities Answer Date Recorded In the past 12 months has [facility] [employer], gas, oil, or water [employer] threatened to shut off services in your [...] Prior to Visit Medication Sig Dispense Refill yeveey-lbmgvobb-ohxkmbf (Zenpep) 40,000-126,000- 168,[address] capsule Take [...] 2 times daily. 30 tablet 0 Insulin [place], Disposable, (BD Ultra-Fine Micro Pen Needle) 32 [...] 03/25/2024 CT Guided Drain Pancreatic/Peripancreatic Joe Quintero, [facility] RAD CT SCAN IR BIOPSY LIVER PERCUTANEOUS - NON-FOCAL PARENCHYMA 01/07/2023 IR Biopsy Liver Percutaneous 01/07/2023 Juan Wright MD [facility] INTERVENTIONL RAD IR DRAIN CHECK/CHANGE/REMOVE 04/08/2024 IR Drain Check/Change/Remove 04/08/2024 Juan [place] MD [facility] INTERVENTIONL RAD PRO PART REMV PANC, PROX+REMV DUOD+ANAST N/A 03/01/2024 @WHIPPLE PROCEDURE (WRVU 52.84) performed by Rudi Hernandez MD at [facility] MAIN OR PRO TRANSFER SKIN PEDICLE FLAP N/A 03/01/2024 TRANSFER, INTERMEDIATE, ANY PEDICLE FLAP, ANY LOCATION (WRVU 4.77) performed by Rudi Hernandez MD at [facility] MAIN OR Social History and Habits: [...] AM EDT Office Visit Hematology/Oncology at [address] [phone] Rodriguez Fowler MD [facility] [place] [address] Sherry Cedillo APRN [address] [place] [address] DR HEMATOLOGY AND ONCOLOGY [place], [place] [phone] 05/28/2024 8:30 AM EDT Infusion Hematology Oncology at [address] [phone] 05/28/2024 9:30 AM EDT Clinical Support Hematology/Oncology at [address] [phone] Leah Rose, RD [facility] DR [place] [address] documented as of this encounter Visit Diagnoses Not on filedocumented in this encounter Care Teams Manager Music Relationship Specialty Start Date End Date Olga Hoffman, IT BUSINESS PROCESS ARCHITECT [address] [place] [address] PCP - General Family Medicine 10/30/22 documented as of this encounter
--- OUTSIDE RECORDS SUMMARY | 2024-05-27 17:58 | XMS_ITS | Encounter Summary ---
Author Organization [facility] [place] [address] Care Team Providers Care Stucco Applicator Name Role Phone Olga Hoffman APRN Primary Care Provider [phone] [phone] Encounter Details Date Type Department Care Team (Late st Contact Info) Description 04/14/2024 Telephone [place]ph[place] [address] Shahida Joshi Social History Tobacco Use Types Packs/Day Years Used Date Smoking Tobacco: Never Smokeless Tobacco: Never Alcohol Use Standard Drinks/Week Comments Not Currently 0 (1 standard drink = 0.6 oz pur e alcohol) [facility] Utilities Answer Date Recorded In the past [...] in the past 12 m [facility], were you homeless or living [...] 8:00 AM EDT Office Visit Hematology/Oncology at [address] [phone] Rodriguez Fowler MD [facility] [place] [address] Sherry Cedillo APRN [address] [place] [address] DR HEMATOLOGY AND ONCOLOGY [place], [place] [phone] 05/28/2024 8:30 AM EDT Infusion Hematology Oncology at [address] [phone] 05/28/2024 9:30 AM EDT Clinical Support Hematology/Oncology at [address] [phone] Leah Rose, RD [facility] DR H[place]ATOLOGY [place] [address] documented as of this encounter Visit Diagnoses Not on filedocumented in this encounter Care Teams Stucco Applicator Relationship Specialty Start Date End Date Olga Hoffman APRN [address] [place] [address] PCP - General Family Medicine 10/30/22 documented as of this encounter
--- OUTSIDE RECORDS SUMMARY | 2024-05-27 17:58 | XMS_ITS | Encounter Summary ---
Author Organization [facility] Address [facility] [place] [address] Care Team Providers Care Laborer Yard Name Role Phone Olga Hoffman APRN Primary Care Provider +1 -[phone] Encounter Details Date Type Department Care Team (Late st Contact Info) Description 04/15/2024 9:00 AM EDT Telephone Hematology [place] [address] Donna Dewey, RD [facility] [place] [address] Social History Tobacco Use Types Packs/Day Years Used Date Smoking Tobacco: Never Smokeless Tobacco: Never Alcohol Use Standard Drinks/Week Comments Not Currently 0 (1 standard drink = 0.6 oz pur e alcohol) [facility] Utilities Answer Date Recorded In the past 12 months has [employer], gas, oil, or water [employer] threatened to shut off services in your [...] any time in the past 12 m [facility], were you homeless or [...] AM EDT Office Visit Hematology/Oncology at [address] [phone] Rodriguez Fowler MD [facility] [place] [address] Sherry Cedillo APRN [address] [place] [address] DR HEMATOLOGY AND ONCOLOGY [place], [place] [phone] 05/28/2024 8:30 AM EDT Infusion Hematology Oncology at [address] [phone] 05/28/2024 9:30 AM EDT Clinical Support Hematology/Oncology at [address] [phone] [facility] DR [place] [address] documented as of this encounter Visit Diagnoses Not on filedocumented in this encounter Care Teams Laborer Yard Relationship Specialty Start Date End Date Olga Hoffman APRN [address] [place], [place] [address] PCP - General Family Medicine 10/30/22 documented as of this encounter
--- OUTSIDE RECORDS SUMMARY | 2024-05-27 17:58 | XMS_ITS | Encounter Summary ---
Author [facility] [place] [address] Care Team Providers Care Staff Home Therapy Rn Name Role Phone Olga Hoffman APRN Primary Care Provider +1 -[phone] Reason for Referral * Diagnostic Test (Routine) - Closed Specialty Diagnoses / Procedures Referred By Contac t Referred To Contact Radiology Diagnoses H/O Whipple procedure Procedures CT Abdomen & Pelvis w Contrast Rudi Hernandez MD [facility] [place] [address] [facility] [place] [address] Referral ID Status Reason Start Date Expiration Date V isits Requested Visits Authorized [id number] Closed Specialty Service Requested 04/08/2024 10/09/2025 1 1 Encounter Details Date Type Department Care Team (Late st Contact Info) Description 04/08/2024 9:30 AM EDT Office [place] [address] [facility] [place] [address] H/O Whipple procedure Social History Tobacco Use Types Packs/Day Years Used Date Smoking Tobacco: Never Smokeless Tobacco: Never Alcohol Use Standard Drinks/Week Comments Not Currently 0 (1 standard drink = 0.6 oz pur e alcohol) [facility] Utilities Answer Date Recorded In the past [...] any time in the past 12 m [facility], were you homeless or living [...] Nick is now 2 weeks postop from [place]. He has been home for over a [...] recording volume output and it is in [id number] range. I discussed this with interventional radiology [...] 8:00 AM EDT Office Visit Hematology/Oncology at [address] [phone] [facility] [place] [address] Sherry Cedillo APRN [address] [place] [address] DR HEMATOLOGY AND ONCOLOGY [place], [place] [phone] 05/28/2024 8:30 AM EDT Infusion Hematology Oncology at [address] [phone] 05/28/2024 9:30 AM EDT Clinical Support Hematology/Oncology at [address] [phone] [facility] DR [place] [address] Scheduled Orders Name Type Priority Associated Diagnoses Orde r Schedule EKG 12 Lead ECG Routine H/O Whipple procedure Expected: 04/22/2024, Expires: 10/22/2024 documented as of this encounter Results * Ferritin (04/20/2024 12:39 PM EDT) Ferritin 55 31 - 409 ng/ml 04/20/2024 1:24 PM EDT [facility] Blood VENOUS BLOOD SPECIMEN / Unknown Venipuncture / Unknown 04/20/2024 12:39 PM EDT 04/20/2024 12:39 PM EDT Rudi Hernandez MD CHEMISTRY ORDERABLES [facility] [place] [address] * (ABNORMAL) Iron and TIBC (04/20/2024 12:39 PM EDT) Pathologist [facility] Iron 49 45 - 160 mcg/dL 04/20/2024 5:03 PM EDT [facility] Unsaturated Iron Binding Capacity 184 110 - 370 mcg/dL 04/20/2024 5:03 PM EDT [facility] TIBC 233(L) 250 - 450 mcg/dL 04/20/2024 5:03 PM EDT [facility] Iron Saturation 21 20 - 50 % 5:03 PM EDT [facility] Blood VENOUS BLOOD SPECIMEN / Unknown Venipuncture / Unknown 04/20/2024 12:39 PM EDT 04/20/2024 12:39 PM EDT Rudi Hernandez MD CHEMISTRY ORDERABLES [facility] [place] [address] * CT Abdomen & Pelvis w Contrast (04/08/2024 11:27 AM EDT) [facility] WORKSTATION ID [id number] DH RAD Anatomical Region Laterality Modality Abdomen, [...] have questions please contact the health care attendant that requested your imaging first. ? Electronically signed by: Flakito Cummings MD, [facility] ([phone]), at 04/09/2024 10:10 AM Narrative 04/09/2024 10:10 [...] who have questions please contactthe health care attendant that requested your imaging first. 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
--- OUTSIDE RECORDS SUMMARY | 2024-05-27 17:58 | XMS_ITS | Encounter Summary ---
Author Organization [facility] Address [facility] [place] [address] Care Team Providers Care Permit Technician Name Role Phone Olga Hoffman APRN Primary Care Provider +1 -[phone] Encounter Details Date Type Department Care Team (Latest Contact Info) Description 04/26/2024 Travel Social History Tobacco Use Types Packs/Day Years Used Date Smoking Tobacco: Never Smokeless Tobacco: Never Alcohol Use Standard Drinks/Week Comments Not Currently 0 (1 standard drink = 0.6 oz pur e alcohol) [facility] Utilities Answer Date Recorded In the [...] any time in the past 12 m [facility], were you homeless or living [...] AM EDT Office Visit Hematology/Oncology at [address] [phone] Rodriguez Fowler MD [facility] [place] [address] Sherry Cedillo APRN [address] [place] [address] HEMATOLOGY AND ONCOLOGY [place], [place] [phone] 05/28/2024 8:30 AM EDT Infusion Hematology Oncology at [address] [phone] 05/28/2024 9:30 AM EDT Clinical Support Hematology/Oncology at [address] [phone] [facility] DR [place] [address] documented as of this encounter Visit Diagnoses Not on filedocumented in this encounter Care Teams Permit Technician Relationship Specialty Start Date End Date Olga Hoffman, PHYSICAL SCIENTIST [address] [place] [address] PCP - General Family Medicine 10/30/22 documented as of this encounter
--- OUTSIDE RECORDS SUMMARY | 2024-05-27 17:58 | XMS_ITS | Encounter Summary ---
Author Organization [facility] Address [facility] [place] [address] Care Team Providers Care Wash Barrel Leader Name Role Phone Olga Hoffman APRN Primary Care Provider +1 [phone] Encounter Details Date Type Department Care Team (Late st Contact Info) Description 04/08/2024 10:00 AM EDT Clinical Support [place] [phone] Donna Dewey, RD [facility] [place] [address] H/O Whipple procedure Social History Tobacco Use Types Packs/Day Years Used Date Smoking Tobacco: Never Smokeless Tobacco: Never Alcohol Use Standard Drinks/Week Comments Not Currently 0 (1 standard drink = 0.6 oz pur e alcohol) [facility] Utilities Answer Date Recorded In the past 12 months has [employer], gas, oil, or water [employer] threatened to shut off services in your [...] any time in the past 12 m [facility], were you homeless or living in [...] s/p Whipple on 03/01/24. Recently discharged from [facility] on 04/01/24 for new peripancreatic abscess on [...] AM EDT Office Visit Hematology/Oncology at [address] [place] [address] [phone] Rodriguez Fowler MD [facility] [place] [address] Sherry Cedillo APRN [address] [place] [address] DR HEMATOLOGY AND ONCOLOGY [place], [place] [phone] 05/28/2024 8:30 AM EDT Infusion Hematology Oncology at [address] [phone] 05/28/2024 9:30 AM EDT Clinical Support Hematology/Oncology at [address] [phone] Leah Rose, RD [facility] DR HEMATOLOGY [place] [address] documented as of this encounter Visit Diagnoses Diagnosis H/O Whipple procedure Duodenal adenocarcinoma Malignant neoplasm of duodenum documented in this encounter Care Teams Wash Barrel Leader Relationship Specialty Start Date End Date Olga Hoffman APRN [address] [place] [address] PCP - General Family Medicine 10/30/22 documented as of this encounter
--- OUTSIDE RECORDS SUMMARY | 2024-05-27 17:58 | XMS_ITS | Encounter Summary ---
[place] [address] Care Team Providers Care Garment Parts Cutter Machine Name Role Phone Olga Hoffman APRN Primary Care Provider [phone] Encounter Details Date Type Department Care Team (Latest Contact Info) Description 04/08/2024 8:45 AM EDT Laboratory Appointment Lab [address] [place] [address] Duodenal adenocarcinoma Social History Tobacco Use Types Packs/Day Years Used Date Smoking Tobacco: Never Smokeless Tobacco: Never Alcohol Use Standard Drinks/Week Comments Not Currently 0 (1 standard drink = 0.6 oz pur e alcohol) [facility] Utilities Answer Date Recorded In the past [...] in the past 12 m [facility], were you homeless or living in a senior care (including now)? No 03/25/2024 IPV Inpatient Questions [...] AM EDT Office Visit Hematology/Oncology at [address] [phone] Rodriguez Fowler MD [facility] [place] [address] Sherry Cedillo APRN [address] [place] [address] HEMATOLOGY [place] [address] 05/28/2024 8:30 AM EDT Infusion Hematology Oncology at [address] [phone] 05/28/2024 9:30 AM EDT Clinical Support Hematology/Oncology at [address] [address] Leah Rose, ARASH [facility] [address] [place] [address] documented as of this encounter Procedures Procedure [...] 9:30 AM EDT) Amylase, Fluid >7,500 unit/L [facility] Comment: Reference intervals are unavailable for this test in body fluids. Comparison of this result with the concentration in blood, serum, or plasma is recommended. This test has not been cleared by the [place] FDA. Performance characteristics of this test for the analysis of body fluids were determined by [facility] in accordance with CLIA requirements. This laboratory is qualified under CLIA to perform high-complexity testing. Amylase BF Type BASIA Drain [facility] BASIA Drain 04/08/2024 9:30 AM EDT 04/08/2024 9:40 AM EDT Narrative Resulting Agency Comment Spec In Lab Rudi Hernandez MD BODY FLUIDS AND OREN CASILLAS ORDERABLES [facility] [place] [place] [address] * (ABNORMAL) Differential, Automated (04/08/2024 8:17 AM EDT) Neutrophil % 73.9 % [facility] Neutrophil Absolute 7.47(H) 1.70 - 6.10 x10(3)/mc L [facility] Lymph % 17.6 % [facility] Lymphocytes Abs 1.8 0.9 - 3.2 x10(3)/mc L [facility] Monocyte % 4.5 % [facility] Monocyte Abs 0.4 0.3 - 0.9 x10(3)/mc L [facility] Eos % 2.6 % [facility] Eosinophils Abs 0.3 0.0 - 0.4 x10(3)/[facility] Basophil % 1.1 % [facility] Baso Absolute 0.1 0.0 - 0.1 x10(3)/mc L [facility] Immature Gran % 0.30 % [facility] Comment: Immature granulocytes(IG's)percentage and absolute count will include metamyelocytes, myelocytes, and promyelocytes. Blood smears from CBCs yielding IG's will be scanned manually for concordance. If this scan disagrees with the automated IG or if promyelocytes are noted, a manual differential will be performed. Immature Gran Absolute 0.03 0.00 - 0.04 x10(3)/mc L [facility] Blood 04/08/2024 8:17 AM EDT 04/08/2024 8:38 AM EDT Narrative Resulting Agency Comment Spec In Lab Gary KIM HEMATOLOGY ORDERABLE S [facility] [place] [address] * (ABNORMAL) Hemogram (04/08/2024 8:17 AM EDT) Pathologist [facility] White Blood Cell 10.1(H) 4.0 - 9.5 x10(3)/ L [facility] Red Blood Cell 5.86(H) 4.58 - 5.54 x10(6)/mc L [facility] Hemoglobin 14.0 13.7 - 16.5 g/dL [facility] Hematocrit 45.1 40.5 - 48.5 % [facility] Mean Cell Volume 77.0(L) 82.9 - 93.1 fL [facility] Mean Cell Hemoglobin 23.9(L) 27.5 - 32.1 pg [facility] Mean Cell Hemoglobin Concentration 31.0(L) 32.0 - 35.7 g/dL [facility] Platelet 248 145 - 357 x10(3)/[facility] RDW Standard Deviation 47.8(H) 36.0 - 45.0 [facility] RDW coefficient of variation 18.4(H) 11.4 - 13.8 % [facility] Mean Platelet Volume 11.0 7.6 - 12.9 fL [facility] NRBC% auto 0.0 % [facility] NRBC Absolute 0.000 0.000 - 0.000 x10(3)/[facility] Blood 04/08/2024 8:17 AM EDT 04/08/2024 8:38 AM EDT Narrative Resulting Agency Comment Spec In Lab Gary KIM HEMATOLOGY ORDERABLE S [facility] [place] [address] * (ABNORMAL) Comprehensive metabolic panel (non-fasting) (04/08/2024 8:17 AM EDT) Pathologist [facility] Glucose 183 65 - 199 mg/dL [facility] Comment:Diabetes: >=200 mg/d L plus symptoms Blood Urea Nitrogen 3(L) 10 - 20 mg/dL [facility] Creatinine 0.97 0.80 - 1.50 mg/dL [facility] Sodium 139 135 - 145 mmol/L [facility] Potassium 4.8 3.5 - 5.0 mmol/L [facility] Comment: Please note: ??Patients with WBC >100,000 may have falsely elevated Potassium levels. ??For accurate Potassium quantification in these patients send serum separator tube (gold top) for subsequent determinations. ??Contact the Clinical Chemistry Laboratory if there are any questions. Chloride 100 98 - 107 mmol/L [facility] Carbon Dioxide 26 22 - 31 mmol/L [facility] Anion Gap 13 5 - 15 mmol/L [facility] Calcium 9.3 8.5 - 10.5 mg/dL [facility] Protein, Total 7.3 6.1 - 8.0 g/dL [facility] Albumin 3.6 3.2 - 5.2 g/dL [facility] Aspartate Aminotransferase 26 0 - 39 unit/L [facility] Alanine Aminotransferase 30 0 - 55 unit/L [facility] Alkaline Phosphatase 105 40 - 130 unit/L [facility] Bilirubin, Total 0.3 0.2 - 1.3 mg/dL [facility] Est Glomerular Filtration Rate 96 >=60 mL/min/1. 73 m?? 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
--- OUTSIDE RECORDS SUMMARY | 2024-05-27 17:58 | XMS_ITS | Encounter Summary ---
[place] [address] Care Team Providers Care Sap Hana Developer Name Role Phone Olga Hoffman APRN Primary Care Provider [phone] [phone] Encounter Details Date Type Department Care Team (Latest Contact Info) Description 04/20/2024 12:29 PM EDT - 04/20/2024 11:59 PM EDT Hospital Encounter Hematology [place] [address] Duodenal adenocarcinoma; H/O Whipple procedure Discharge Disposition: Home Social History Tobacco Use Types Packs/Day Years Used Date Smoking Tobacco: Never Smokeless Tobacco: Never Alcohol Use Standard Drinks/Week Comments Not Currently 0 (1 standard drink = 0.6 oz pur e alcohol) [facility] Utilities Answer Date Recorded In the past 12 months has e electric, gas, oil, or water [employer] threatened to shut off services in your [...] Sig Dispensed Refills Start Date End Date priifs-npupzwer-krckf se (Zenpep) 40,000-126,000- 168,[address] capsule [...] 2 times daily. 30 tablet 03/08/2024 Insulin [place], Disposable, (BD Ultra-Fine Micro Pen Needle) 32 gauge x 1/4 Needle 1 each by [facility].(Non-Drug; Combo Route) route 2 [...] AM EDT Office Visit Hematology/Oncology at [address] [phone] Rodriguez Fowler MD [facility] [place] [address] Sherry Cedillo APRN [address] [place] [address] DR [place] [address] 05/28/2024 8:30 AM EDT Infusion Hematology Oncology at [address] [phone] 05/28/2024 9:30 AM EDT Clinical Support Hematology/Oncology at [address] [phone] [address] [facility] DR HEMATOLOGY [place] [address] documented as of this encounter Procedures Procedure [...] Results * CEA (04/20/2024 12:39 PM EDT) Pathologist [facility] Carcinoembryonic Antigen 1.1 <=3.8 ng/ml 04/20/2024 1:24 [...] MD CHEMISTRY ORDERABLES [facility] [place] [address] * PGx Oncology (04/20/2024 12:39 PM EDT) [facility] NGS Report Status Normal 04/27/2024 4:56 PM EDT [facility] Blood VENOUS BLOOD SPECIMEN / Unknown Venipuncture / Unknown 04/20/2024 12:39 PM EDT 04/20/2024 12:39 PM EDT Rodriguez Fowler MD MOLECULAR ORDERABLES [facility] [place] [address] * Ferritin (04/20/2024 12:39 PM EDT) Pathologist [facility] Ferritin 55 31 - 409 ng/ml 04/20/2024 1:24 PM EDT [facility] Blood VENOUS BLOOD SPECIMEN / Unknown Venipuncture / Unknown 04/20/2024 12:39 PM EDT 04/20/2024 12:39 PM EDT Rudi Hernandez MD CHEMISTRY ORDERABLES [facility] [place] [address] * (ABNORMAL) Iron and TIBC (04/20/2024 12:39 [...] 12:39 PM EDT 04/20/2024 12:39 PM EDT uRdi Hernandez MD CHEMISTRY ORDERABLES [facility] [place] [address] * Phosphorus (04/20/2024 12:39 PM EDT) Phosphorus 3.1 2.5 - 4.5 mg/dL 04/20/2024 1:28 PM EDT [facility] Blood VENOUS BLOOD SPECIMEN / Unknown Venipuncture / Unknown 04/20/2024 12:39 PM EDT 04/20/2024 12:39 PM EDT Rudi Hernandez MD CHEMISTRY ORDERABLES [facility] [place] [address] * Magnesium (04/20/2024 12:39 PM EDT) Magnesium 0.74 0.69 - 1.07 mMol/L 04/20/2024 1:28 PM EDT [facility] Blood VENOUS BLOOD SPECIMEN / Unknown Venipuncture / Unknown 04/20/2024 12:39 PM EDT 04/20/2024 12:39 PM EDT Rudi Hernandez MD CHEMISTRY ORDERABLES [facility] [place] [address] * (ABNORMAL) Comprehensive metabolic panel (04/20/2024 12:39 PM EDT) Pathologist [facility] Glucose 204(H) 65 - 199 mg/dL 04/20/2024 [...] unit/L 04/20/2024 1:28 PM [facility] Alanine Aminotransferase 14 0 - 55 unit/L 04/20/2024 1:[facility] Alkaline Phosphatase 71 40 - 130 unit/L 04/20/2024 1:28 PM T [facility] Bilirubin, Total 0.3 <=1.3 mg/dL 04/20/2024 1:28 PM [facility] Est Glomerular Filtration Rate [...] MD CHEMISTRY ORDERABLES [facility] [place] [address] * (ABNORMAL) CBC (with Diff) (04/20/2024 12:39 PM EDT) White Blood Cell 7.18 x10(3)/mc L 04/20/2024 12:49 PM [facility] Red Blood Cell 5.26 4.58 - 5.54 x10(6)/mc L 04/20/2024 12:49 PM [facility] Hemoglobin 12.6(L) 13.7 - 16.5 g/dL 04/20/2024 12:49 PM [facility] Hematocrit 40.5 40.5 - 48.5 % 04/20/2024 12:49 PM [facility] Mean Cell Volume 77.0(L) 82.9 - 93.1 fL 04/20/2024 12:49 PM [facility] Mean Cell Hemoglobin 24.0(L) 27.5 - 32.1 pg 04/20/2024 12:49 PM [facility] Mean Cell Hemoglobin Concentration 31.1(L) 32.0 - 35.7 g/dL 04/20/2024 12:49 PM [facility] Platelet 178 145 - 357 x10(3)/mc L 04/20/2024 12:49 PM [facility] Mean Platelet Volume 10.5 7.6 - 12.9 fL 04/20/2024 12:49 PM [facility] RDW Standard Deviation 48.7(H) 36.0 - 45.0 fL 04/20/2024 12:49 PM [facility] RDW coefficient of variation 17.7(H) 11.4 - 13.8 % 04/20/2024 12:49 PM [facility] NRBC% auto 0.0 % 04/20/2024 12:49 PM [facility] NRBC Absolute 0.00 0.00 - 0.00 x10(3)/mc L 04/20/2024 12:49 PM [facility] Neutrophil % 66.4 % 04/20/2024 12:49 PM 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
--- OUTSIDE RECORDS SUMMARY | 2024-05-27 17:58 | XMS_ITS | Encounter Summary ---
Author Organization [facility] [place] [address] Care Team Providers Care Jacket Changer Name Role Phone Olga Hoffman APRN Primary Care Provider [phone] Reason for Referral * Diagnostic Test (Routine) - Closed Specialty Diagnoses / Procedures Referred By Contac t Referred To Contact Radiology Diagnoses Duodenal adenocarcinoma Procedures IR Mediport Placement Rodriguez Fowler MD [facility] [place] [address] [facility] [place] [address] Referral ID Status Reason Start Date Expiration Date V isits Requested Visits Authorized [id number] Closed Specialty Service Requested 04/20/2024 10/21/2025 1 1 Reason for Visit * Reason Comments Establish Care * Consultation (Routine) - Closed Specialty Diagnoses / Procedures Referred By Contac t Referred To Contact Hematology and Oncology Diagnoses Duodenal adenocarcinoma Rudi Hernandez MD [facility] [place] [address] [facility] Hem [address]c [address] [place] [address] Referral ID Status Reason Start Date Expiration Date V isits Requested Visits Authorized [id number] Closed Consult, Test & Treat 03/11/2024 03/11/2025 1 1 Encounter Details Date Type Department Care Team (Latest Contact Info) Description 04/20/2024 11:00 AM EDT Office Visit Hematology and Oncology at [facility] [place] [address] Rodriguez Fowler MD [facility] [place] [address] Duodenal adenocarcinoma Social History Tobacco Use Types Packs/Day Years Used Date Smoking Tobacco: Never Smokeless Tobacco: Never Alcohol Use Standard Drinks/Week Comments Not Currently 0 (1 standard drink = 0.6 oz pur e alcohol) [facility] Utilities Answer Date Recorded In [...] without imunotherapy. 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 6.Obstructive sleep apnea: [...] symptoms in his fingertips. Soc Hx:Lives in [place], [place] Tob - Never Etoh - Rare [...] after cycle 6-8 to try to avoid roasterman complications of neuropathy. I will also send [...] even in the absence of cold, angina/ MT, hepatic and renal dysfunction, hypersensitivity reactions and [...] AM EDT Office Visit Hematology/Oncology at [address] [phone] Rodriguez Fowler MD [facility] [place] [address] Sherry Cedillo APRN [address] [address] DR HEMATOLOGY AND ONCOLOGY [place], [place] [id number] 05/28/2024 8:30 AM EDT Infusion Hematology Oncology at [address] [phone] 05/28/2024 9:30 AM EDT Clinical Support Hematology/Oncology at [address] [phone] [facility] [place] [address] Scheduled Orders Name Type Priority Associated Diagnoses [...] chest port implant Indication: Duodenal adenocarcinoma, 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 This result was generated using a Amanda Bonifacio immunoassay. ??Results obtained from other methods or manufacturers cannot be used interchangeably with this method. Blood VENOUS BLOOD SPECIMEN / Unknown Venipuncture / Unknown 04/20/2024 12:39 PM EDT 04/20/2024 12:39 PM EDT Rodriguez Fowler MD CHEMISTRY ORDERABLES [facility] [place] [address] * PGx Oncology (04/20/2024 12:39 PM EDT) Pathologist [facility] NGS Report Status Normal 04/27/2024 4:56 PM EDT [facility] Blood VENOUS BLOOD SPECIMEN / Unknown Venipuncture / Unknown 04/20/2024 12:39 PM EDT 04/20/2024 12:39 PM EDT Rodriguez Fowler MD MOLECULAR ORDERABLES Performing Organization Address City/State/[facility] Co de Phone Number [facility] [place] [address] documented in this encounter Visit Diagnoses Diagnosis 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
--- OUTSIDE RECORDS SUMMARY | 2024-05-27 17:58 | XMS_ITS | Encounter Summary ---
Author Organization [facility] Address [facility] [place] [address] Care Team Providers Care Automobile Brakes Bonder Name Role Phone Olga Hoffman APRN Primary Care Provider [phone] [phone] Encounter Details Date Type Department Care Team (Latest Contact Info) Description 04/20/2024 Travel Social History Tobacco Use Types Packs/Day Years Used Date Smoking Tobacco: Never Smokeless Tobacco: Never Alcohol Use Standard Drinks/Week Comments Not Currently 0 (1 standard drink = 0.6 oz pur e alcohol) [facility] Utilities Answer Date Recorded In the [...] AM EDT Office Visit Hematology/Oncology at [address] [phone] Rodriguez Fowler MD [facility] [place] [address] Sherry Cedillo APRN [address] [place] [address] HEMATOLOGY AND ONCOLOGY [place], [place] [phone] 05/28/2024 8:30 AM EDT Infusion Hematology Oncology at [address] [phone] 05/28/2024 9:30 AM EDT Clinical Support Hematology/Oncology at [address] [phone] [facility] DR HEMATOLOGY [place] [address] documented as of this encounter Visit Diagnoses Not on filedocumented in this encounter Care Teams Automobile Brakes Bonder Relationship Specialty Start Date End Date Olga Hoffman, REGROOVER [address] [place] [address] PCP - General Family Medicine 10/30/22 documented as of this encounter
--- OUTSIDE RECORDS SUMMARY | 2024-05-27 17:59 | XMS_ITS | Encounter Summary ---
Author Organization [facility] Address [facility] [place] [address] Care Team Providers Care Sky Cap Name Role Phone Olga Hoffman APRN Primary Care Provider [phone] Encounter Details Date Type Department Care Team (Late st Contact Info) Description 03/24/2024 10:30 AM EDT Telephone [place]ematology [place] [address] Donna Dewey, RD [facility] [place] [address] Social History Tobacco Use Types Packs/Day Years Used Date Smoking Tobacco: Never Smokeless Tobacco: Never Alcohol Use Standard Drinks/Week Comments Not Currently 0 (1 standard drink = 0.6 oz pur e alcohol) [facility] Utilities Answer Date Recorded In the past 12 months has [employer], gas, oil, or water [employer] threatened to shut off services in your [...] the past 12 m [facility], were you homeless or living in a [...] - Friday or Friday / passing gas [place] pancakes whole soylent protein drink 400 kcals/ [...] 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 Continued close f/u. documented in this encounter Plan of Treatment Upcoming Encounters Date Type Department Care Team (Late st Contact Info) Description 05/28/2024 8:00 AM EDT Office Visit Hematology/Oncology at [address] [phone] Rodriguez Fowler MD [facility] [place] [address] Sherry Cedillo APRN [address] [place] [address] DR HEMATOLOGY AND ONCOLOGY [place], [place] [address] 05/28/2024 8:30 AM EDT Infusion Hematology Oncology at [address] [phone] 05/28/2024 9:30 AM EDT Clinical Support Hematology/Oncology at [address] [phone] Leah Rose, ARASH [facility] [place] [address] documented as of this encounter Visit Diagnoses Not on filedocumented in this encounter Care Teams Sky Cap Relationship Specialty Start Date End Date Olga Hoffman APRN [address] [place] [address] PCP - General Family Medicine 10/30/22 documented as of this encounter
--- OUTSIDE RECORDS SUMMARY | 2024-05-27 17:59 | XMS_ITS | Encounter Summary ---
[place] [address] Care Team Providers Care Stone Setter Apprentice Name Role Phone Olga Hoffman APRN Primary Care Provider [phone] Encounter Details Date Type Department Care Team (Late st Contact Info) Description 03/24/2024 Telephone [place] [address] Gina Marie, RN Social History Tobacco Use Types Packs/Day Years Used Date Smoking Tobacco: Never Smokeless Tobacco: Never Alcohol Use Standard Drinks/Week Comments Not Currently 0 (1 standard drink = 0.6 oz pur e alcohol) [facility] Utilities Answer Date Recorded In [...] questions. I will also send him a eWise message as well. Addendum at 17:52: Several attempts made to initiate prior authorization via covermymeds with errormessages,Patient inactive and No matching patient. I will follow up with him to verify insurance tomorrow. documented in this encounter Plan of Treatment Upcoming Encounters Date Type Department Care Team (Late st Contact Info) Description 05/28/2024 8:00 AM EDT Office Visit Hematology/Oncology at [address] [phone] Rodriguez Fowler MD [facility] [place] [address] Sherry Cedillo APRN [address] [place] [address] DR HEMATOLOGY AND ONCOLOGY [place], [place] [address] 05/28/2024 8:30 AM EDT Infusion Hematology Oncology at [address] [phone] 05/28/2024 9:30 AM EDT Clinical Support Hematology/Oncology at [address] [phone] [facility] DR HEMATOLOGY [place] [address] documented as of this encounter Visit Diagnoses Not on filedocumented in this encounter Care Teams Stone Setter Apprentice Relationship Specialty Start Date End Date Olga Hoffman APRN [address] [place] [address] PCP - General Family Medicine 10/30/22 documented as of this encounter
--- OUTSIDE RECORDS SUMMARY | 2024-05-27 17:59 | XMS_ITS | Encounter Summary ---
Author Organization [facility] [place] [address] Care Team Providers Care Solar Sales Associate Name Role Phone Olga Hoffman APRN Primary Care Provider [phone] Encounter Details Date Type Department Care Team (Late st Contact Info) Description 03/22/2024 Orders [place] [address] Rudi Hernandez MD [facility] [place] [address] Duodenal adenocarcinoma; H/O Whipple procedure Social History Tobacco Use Types Packs/Day Years Used Date Smoking Tobacco: Never Smokeless Tobacco: Never Alcohol Use Standard Drinks/Week Comments Not Currently 0 (1 standard drink = 0.6 oz pur e alcohol) [facility] Utilities Answer Date Recorded In the past 12 months has [employer], gas, oil, or water [employer] threatened to shut off services in your [...] in a care home (including now)? No 03/02/2024 DH IPV Inpatient [...] 8:00 AM EDT Office Visit Hematology/Oncology at [address] [phone] Rodriguez Fowler MD [facility] [place] [address] Sherry Cedillo APRN [address] [place] [address] DR HEMATOLOGY AND ONCOLOGY [place], [place] [address] 05/28/2024 8:30 AM EDT Infusion Hematology Oncology at [address] [phone] 05/28/2024 9:30 AM EDT Clinical Support Hematology/Oncology at [address] [phone] Leah Rose, RD [facility] DR HEMATOLOGY [place] [address] documented as of this encounter Visit Diagnoses Diagnosis 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
--- OUTSIDE RECORDS SUMMARY | 2024-05-27 17:59 | XMS_ITS | Encounter Summary ---
[place] [address] Care Team Providers Care Dog Barber Name Role Phone Olga Hoffman APRN Primary Care Provider [phone] Encounter Details Date Type Department Care Team (Late st Contact Info) Description 03/26/2024 Telephone [place] [address] Gina Marie, RN Social History Tobacco Use Types Packs/Day Years Used Date Smoking Tobacco: Never Smokeless Tobacco: Never Alcohol Use Standard Drinks/Week Comments Not Currently 0 (1 standard drink = 0.6 oz pur e alcohol) [facility] Utilities Answer Date Recorded In [...] authorization was not needed. I called [employer] and confirmed they were able to run this and fill a 30 day supply with zero dollar co-pay. I left my name and number to call with any questions. documented in this encounter Plan of Treatment Upcoming Encounters Date Type Department Care Team (Late st Contact Info) Description 05/28/2024 8:00 AM EDT Office Visit Hematology/Oncology at [address] [phone] Rodriguez Fowler MD [facility] [place] [address] Sherry Cedillo APRN [address] [place] [address] DR HEMATOLOGY AND ONCOLOGY [place], [place] [id number] 05/28/2024 8:30 AM EDT Infusion Hematology Oncology at [address] [phone] 05/28/2024 9:30 AM EDT Clinical Support Hematology/Oncology at [address] [phone] [facility] [place] [address] documented as of this encounter Visit Diagnoses Not on filedocumented in this encounter Care Teams Dog Barber Relationship Specialty Start Date End Date Olga Hoffman APRN [address] [place] [address] PCP - General Family Medicine 10/30/22 documented as of this encounter
--- OUTSIDE RECORDS SUMMARY | 2024-05-27 17:59 | XMS_ITS | Encounter Summary ---
Author Organization Formerly [facility] [place] [address] Care Team Providers Care Welding Supervisor Name Role Phone Olga Hoffman APRN Primary Care Provider [phone] Reason for Referral * Diagnostic Test (Routine) - New Request Specialty Diagnoses / Procedures Referred By Contac t Referred To Contact Radiology Diagnoses Perihepatic abscess Duodenal adenocarcinoma Procedures IR Drain Check/Change/Remove Tejas Henao PA [facility] [place] [address] [place] [address] Referral ID Status Reason Start Date Expiration Date Visits Requested Visits Authorized [id number] New Request Specialty Service Requested 04/09/2024 10/10/2025 1 1 * Home Health Care (Routine) - Pending Review Specialty Diagnoses / Procedures Referred By Contac t Referred To Contact Diagnoses Perihepatic abscess Chalino Cristina MD [facility] [place] [address] [facility] [place] [address] [place] [address] Referral ID Status Reason Start Date Expiration Date Visits Requested Visits Authorized [id number] Pending Review Consult, Test & Treat 04/01/2024 09/28/2024 999 999 * Diagnostic Test (Routine) - New Request Specialty Diagnoses / Procedures Referred By Janak holland Referred To Contact Radiology Diagnoses Perihepatic abscess Duodenal adenocarcinoma Obesity due to excess calories with serious comorbidity, unspecified classification Procedures IR Drain Check/Change/Remove Joe Quintero DO [facility] [place] [address] [facility] [place] [address] Referral ID Status Reason Start Date Expiration Date Visits Requested Visits Authorized [id number] New Request Specialty Service Requested 03/25/2024 09/25/2025 1 1 Reason for Visit * Auth/Cert (Routine) Specialty Diagnoses / Procedures Referred By Janak holland Referred To Contact Diagnoses Perihepatic abscess abscess Procedures EMERGENCY IPI Rudi Hernandez MD [facility] [place] [address] [facility] Referral ID Status Reason Start Date Expiration Date Visits Re quested Visits Authorized [id number] 1 1 Encounter Details Date Type Department Care Team (Latest Contact Info) Description 03/24/2024 9:11 PM EDT - 04/01/2024 3:24 PM EDT Hospital Encounter Surgical Unit Level 4 [place] [id number] Rudi Hernandez MD [facility] [place] [address] Perihepatic abscess; Duodenal adenocarcinoma; Obesity [...] any time in the past 12 m [facility], were you homeless or living in a longterm (including now)? No 03/25/2024 IPV Inpatient Questions [...] s/p Whipple on 03/01 who presents [facility] for new peripancreatic abscess on [...] his last admission. He initially presented to [facility] and was transferred here for further care. [...] Hospital Course: Charles Nick was admitted to [facility] on 03/24/2024 as a direct-admit from [facility]. His complete hospital course is detailed below: [...] Discharge Plans: Discharge to: Home VNA: Yes [facility] [address] [address] Discharge Conditions/Prognosis: Stable Discharge Medications: The following [...] route 2 times daily. Generic drug: Insulin [place] (Disposable) 1 each Quantity: 300 each Refills: [...] and 1 capsule with snacks. Generic drug: kacvek-qmugqqlv-ptwuveb 2 capsule Quantity: 300 capsule Refills: 3 [...] DRAPER 04/08/2024 9:30 AM Rudi Hernandez MD [facility] 04/08/2024 10:[address] [facility] 04/08/2024 12:10 PM [facility] IR ROOM 1 [facility] Rad 04/20/2024 11:00 AM Rodriguez Fowler MD [facility] HEM ONC [facility] 05/21/2024 9:00 AM Nighat López MD [facility] ENDO [facility] Outpatient Services/Studies: IR Drain Check/Change/Remove Standing Status: Future Standing Exp. Date: 07/26/24 Question Response Notes Where will study be performed? [facility] Radiology [120] To be scheduled [...] Referred to Provider: [facility] Number of Visits Requested: 999 Instructions Given to Patient at Discharge:. An After Visit Summary was printed and given to the patient. Patient Instructions [facility] Department of Surgical Oncology Discharge Instructions CALL [...] Your skin incision(s) is closed with: [] [place] - Your edd have been removed and [...] with the Surgery nurses. The number is [phone]. - During the night or weekends call the [facility] decorating machine operator at [phone] and ask to speak to the surgery resident recreation center director for general surgery. Please note: Your surgeon may not be Salesperson Sheet Music, especially during the night or on weekends, so be ready to describe yourself and your surgery when you call. Follow up appointments: Future Appointments Date Time Provider Department Center 04/08/2024 12:10 PM [facility] IR ROOM 1 [facility] Rad 04/08/2024 1:30 PM Rudi Hernandez MD [facility] 04/08/2024 2:[address] [facility] 04/20/2024 11:00 AM Rodriguez Fowler MD [facility] HEM ONC [facility] 05/21/2024 9:00 AM Nighat López MD [facility] ENDO [facility] [x] Follow-up appointment with General Surgery has already been scheduled [x] A follow-up appointment with your PCP has been scheduled for Friday04/14/24 @ 10AM - please discuss going back on Metformin at this appointment. If you need a prior authorization, please call the General Surgery Clinic nurses [phone] for prior authorizations assistance General Instructions INTERVENTIONAL [...] is during regular office hours, please call [phone]. If it is after regular office hours, or on weekends or holidays, please call [phone] and ask to speak to the Quality Assurance Qa Lab Technician recreation center director for Interventional Radiology. XX You have received [...] drain; in 24 hours) Social Work Resources [place] [facility] may be able to assist with caregiver support and care services. Highly recommend that you give them a call to discuss how they can support with needs after discharge. [facility] [place] [address] [place] [address], [address] (view mapfor [facility] [place]) [phone] Toll Free Helpline [phone] Administrative [phone] FAX [email or web address] Diabetes Discharge Instructions & Recommendations Check your [...] 8:45 AM LAB, THREE L Lab 3L [facility] Arrive at: Soccer Referee Area 3L [phone] 04/08/2024 9:30 AM Rudi Hernandez MD General Surgery at [facility] Arrive at: [place] Re[place] Area 4L [phone] Please dispose of unused excess opioids before your appointment or bring them with you to the appointment and we will help you dispose of them correctly. 04/08/2024 10:[address] General Surgery at [facility] Arrive at: [place] Referee Area 4L [phone] 04/08/2024 12:10 PM [facility] IR ROOM 1 Radiology at [facility] Arrive at: 3 RADIOLOGY [phone] Please expect a call from a radiology nurse within 3 days of your exam, you will need to follow theinstructions given at that time. 04/20/2024 11:00 AM Rodriguez Fowler MD Hematology and Oncology at [facility] Arrive at: [place] Referee Area 3K [phone] 05/21/2024 9:00 AM Nighat López MD; [facility] ENDOCRINOLOGY PRECEPTOR Endocrinology at [facility] Arrive at: [place] Referee Area 3A [phone] Future Orders Complete By Expires Amylase Level Body Fluid [[id number] Custom] 04/08/2024 10/08/2024 Process Instructions: Scheduling Instructions: Comments: Questions: Specimen Type: BASIA Drain CBC (with Diff) [[id number] Custom] 04/08/2024 04/01/2025 Process Instructions: INCLUDES: WBC, RBC, Hgb, Hct, Platelets, RBC Indices and Differential Scheduling Instructions: Comments: Questions: Comprehensive metabolic panel (non-fasting) [LAB17 Custom] 04/08/2024 (Approximate) 04/01/2025 Process Instructions: INCLUDES: Calcium, T Protein, Albumin, AST, ALT, Alk Phos, T Bili, BUN, Creat, GFR, Glucose, Lytes. Scheduling Instructions: Comments: Questions: IR Drain Check/Change/Remove [[id number] Custom] 04/08/2024 07/26/2024 Process Instructions: Scheduling Instructions: Comments: Questions: Where will study be performed?: [facility] Radiology To be scheduled: Next available [...] to Home Health. [address] [facility] [address] (home) [phone] (work) Date of : 1975 Inpatient DOCUMENTATION FOR VNA SERVICES (INCLUDING THOSE PATIENTS WITH MEDICARE COVERAGE REQUIRING HOME VNA SERVICES AND/OR HOSPICE SERVICES) PATIENT'S LOCATION: Charles Nick [address] [facility] [address] (home) Cell: Telephone Information: Director Of Guidance In [employer]'s Name: Spouse In discussion with the attending physician, it is certified that this patient is under their care and that they, or a Nurse Practitioner, Clinical Nurse specialist or Physician Mesh Worker who is working directly with them, had [...] program if appropriate. HOME HEALTH CARE AGENCY: [facility] [address] [place] [address] START OF CARE: within 24-48 hours of [...] to be obtained from this patient's PCP: Ogla Hoffman APRN [address] [facility] [address] . All VNA agencies which cover the areaof patient's residence have been reviewed, either verbally or in writing, and patient/family have chosen the home health care agency noted. Questions: Disciplines Requested: Physical Therapy Discharge References/Attachments: Discharge References/Attachments None Follow-up Recommendations for Providers: Medication changes: DISCONTINUE Farxiga. START Lantus 10u daily. Consider resuming Metformin Diet changes: N/A Other: IR drain check 04/08 CC: Olag Hoffman APRN [phone] Signed: Chalino Cristina MD Surgical Oncology Service Team Pager #[phone] 04/01/2024 2:21 PM For questions regarding this document or issues relating to this hospitalization on the Surgical Oncology Service, please contact Rudi Hernandez MD's office at [phone] documented in this encounter Discharge Instructions * [...] is during regular office hours, please call [phone]. If it is after regular office hours, or on weekends or holidays, please call [phone] and ask to speak to the Quality Assurance Qa Lab Technician recreation center director for Interventional Radiology. XX You have received [...] drain; in 24 hours) Social Work Resources [facility] may be able to assist with caregiver support and care services. Highly recommend that you give them a call to discuss how they can support with needs after discharge. [facility] ON [facility] [address] [facility], [address] (view mapfor [facility] ER) [phone] Toll Free Helpline [phone] Administrative [phone] FAX [email or web address] Diabetes Discharge Instructions & Recommendations Check your [...] Cristina MD - 03/29/2024 12:19 PM EDT [facility] Department of Surgical Oncology Discharge Instructions CALL [...] Your skin incision(s) is closed with: [] [place] - Your edd have been removed and [...] with the Surgery nurses. The number is [phone]. - During the night or weekends call the [facility] decorating machine operator at [phone] and ask to speak to the surgery resident recreation center director for general surgery. Please note: Your surgeon may not be Salesperson Sheet Music, especially during the night or on weekends, so be ready to describe yourself and your surgery when you call. Follow up appointments: Future Appointments Date Time Provider Department Center 04/08/2024 12:10 PM [facility] IR ROOM 1 [facility] Rad 04/08/2024 1:30 PM Rudi Hernandez MD [facility] SUR[facility] 04/08/2024 2:[address] [facility] SUR[facility] 04/20/2024 11:00 AM Rodriguez Fowler MD [facility] HEM ONC [facility] 05/21/2024 9:00 AM Nighat López MD [facility] ENDO [facility] [x] Follow-up appointment with General Surgery has already been scheduled [x] A follow-up appointment with your PCP has been scheduled for Friday04/14/24 @ 10AM - please discuss going back on Metformin at this appointment. If you need a prior authorization, please call the General Surgery Clinic nurses [phone] for prior authorizations assistance documented in this [...] 2 times daily. 30 tablet 03/08/2024 Insulin [place], Disposable, (BD Ultra-Fine Micro Pen Needle) 32 [...] for 6 days. 18 tablet 04/02/2024 04/08/2024 qkhgtw-ohaelezl-aoqun se (Zenpep) 40,000-126,000- 168,[address] capsuleIndications:H/ [...] Nick is a 48 y.o. male from [place], [place], with PMH significant for HTN, TIIDM [...] Diet: clear liquids Monitoring: BG Q4 Discharge Planning/residential diabetes care: Medications - Outpatient treatment regimen [...] coordination with the consulting service. Isidra Hickey, GREEN FEED ATTENDANT, DNP, -[facility] Inpatient Diabetes Management Team Team pager #[phone] Diabetes Discharge Instructions & Recommendations Check your [...] s/p Whipple on 03/01 who presents [facility] for new peripancreatic fluid collection [...] Services: follow up with outpatient RD (at [facility]) I was able to discuss plan with [...] 1800 03/30/2024 1800 03/29/2024 1800 Adult TPN [[id number]] Adult TPN [[id number]] Adult TPN [[id number]] Order Status Discontinued Completed Completed Last Admin [...] encounter: 119.7 kg (263 lb 14.3 oz). [place] Body Weight (IBW) (kg): 86.36 Wt Readings [...] dc. Pt cites appetite is still low, ghost writer observed 100% intake of vegetable soup for [...] maxillary line): Not assessed Lean Muscle Loss Catholic region (temporalis muscle): Mild Clavicle bone region [...] Nick is a 48 y.o. male from [place], [place], with PMH significant for HTN, TIIDM [...] insulin adjustment for TPN. 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 Isidra Hickey APRN, DNP, -[facility] Inpatient Diabetes Management Team Team pager #[phone] * Chalino Cristina MD - 03/31/2024 9:58 AM EDT Surgical Oncology Inpatient Progress Note Patient Name: Charles FLANAGAN; Age: 4 1975; 48 y.o. Room/Bed: 458/[facility] Today's Date: 03/31/24 ID: Charles Nick is a 48 y.o. 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 Doing much better today, seen by ID yesterday, recs noted. On TPN and tolerating clears. PROBLEM BASED PLANS: - Advance to carb-controlled diet - Place PO ID recommendations Dispo: Floor status Code status: Attempt Cardiopulmonary Resuscitation - Inpatient Signed: Chalino Cristina MD Surgical Oncology Service Team Pager #[phone] 03/31/24 9:59 AM * Jyoti Nelson RN - 03/30/2024 7:44 PM EDT OUTCOME EVALUATION NOTE: OUTCOME SUMMARY: Charles is A&Ox4. VSS on RA. Denies any pain. Blood glucose checked, insulin provided per orders, see MAR. TPN infusing per orders, see MAR. Pended to new room, report called by [facility] dayshift GRETCHEN Muse to [facility] dayshift GRETCHEN Fernando. Patient sent to new room with all belongings. * Sharon Fernandez PTA - 03/30/2024 1:46 PM EDT Physical Therapy Note 3 Patient profile: Per H&P Charles Nick is a 48 y.o. 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 He initially presented to [facility] and was transferred here for further care. 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 However between last admit for whipple procedure [...] and SBA for ambulation and transfers w/ staff educator as able Pt encouraged to ambulate frequently [...] rail with supervision. Time IN / OUT: 7657-0430 / 2174-1725 Total Time: 34 minutes; TEF 2 Sharon Fernandez PTA Pager: [phone] Physical Therapy Inpatient Rehabilitation Department * Leonarda [...] Nick is a 48 y.o. 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 Isidra Hickey APRN, DNP, -[facility] Inpatient Diabetes Management Team Team pager #[phone] * Gary Mtz PA - 03/30/2024 9:30 AM EDT Surgical Oncology Inpatient Progress Note Patient Name: Charles Nick ; Age: 4 1975; 48 y.o. Room/Bed: IS85/IS85-A Today's Date: 03/30/24 ID: Charles Nick is a 48 y.o. 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 24 Hour Events: - Continues on ceftriaxone/flagyl, started on fluconazole. - NGT clamp trial with 300cc output - NGT returned to [facility] and started on Reglan for pro-motility (? [...] with 300cc output - NGT returned to [facility] and started on Reglan for pro-motility (?Component [...] s/p Whipple on 03/01 who presents to [facility] 03[place] for new peripancreatic abscess on [...] Off insulin gtt since 03/26 - appreciate [facility] medicine and DM TRAFFIC ASSISTANT recs, currently on glargine 10u daily, Moderate [...] JULIO Burgess Surgical Oncology Service Team Pager #[phone] 03/30/24 9:30 AM Associated attestation - Rudi [...] s/p Whipple on 03/01 who presents to [facility] 03[place] for new peripancreatic abscess on [...] his last admission. He initially presented to [facility] and was transferred here for further care. Patient with the following active problems: Past Medical History: Diagnosis Date CKD (chronic kidney disease) stage 3, GFR 30-59 ml/min 01/31/2011 Obesity 01/31/2011 Past Surgical History: Procedure Laterality Date CT GUIDED DRAIN PANCREATIC/PERIPANCREATIC 03/25/2024 CT Guided Drain Pancreatic/Peripancreatic Joe Quintero, DO [facility] RAD CT SCAN IR BIOPSY LIVER PERCUTANEOUS - NON-FOCAL PARENCHYMA 01/07/2023 IR Biopsy Liver Percutaneous 01/07/2023 Juan Wright MD [facility] INTERVENTIONL RAD PRO PART REMV PANC, PROX+REMV DUOD+ANAST N/A 03/01/2024 @WHIPPLE PROCEDURE (WRVU 52.84) performed by Rudi Hernandez MD at [facility] MAIN OR PRO TRANSFER SKIN PEDICLE FLAP N/A 03/01/2024 TRANSFER, INTERMEDIATE, ANY PEDICLE FLAP, ANY LOCATION (WRVU 4.77) performed by Rudi Hernandez MD at [facility] MAIN OR Active Non-Hospital Problems Diagnosis Duodenal adenocarcinoma CKD (chronic kidney disease) stage 3, GFR 30-59 ml/min Obesity Social History: Home set-up: Lives in home with girlfriend Jenelle Stairs: 1STE with rail, ~13 stairs to second floor Baseline mobility: IND baseline with mobility, ambulation, self-care, 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 Time IN / OUT: 2679-5680, 5393-0248 Total Minutes, Physical Therapy: 26 Jewels Smith DPT Pager: [phone] Physical Therapy Inpatient Rehabilitation Department * Isidra Hickey APRN - 03/29/2024 11:10 AM EDT Glucose Management Team Inpatient Progress Note HPI Charles Nick is a 48 y.o. 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 Isidra Hickey APRN, DNP, -[facility] Inpatient Diabetes Management Team Team pager #[phone] * Gary Mtz PA - 03/29/2024 8:23 AM EDT Surgical Oncology Inpatient Progress Note Patient Name: Charles FLANAGAN; Age: 4 1975; 48 y.o. Room[facility]: [facility] Today's Date: 03/29/24 ID: Charles Nick is a 48 y.o. 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 who presents to [facility] 03[place] for new peripancreatic fluid collection [...] s/p Whipple on 03/01 who presents to [facility] 03[place] for new peripancreatic abscess on [...] 03/26 - appreciate Hospital medicine and DM TRAFFIC ASSISTANT recs, currently on glargine 10u daily, Moderate [...] JULIO Burgess Surgical Oncology Service Team Pager #[phone] 03/29/24 8:23 AM Associated attestation - Rudi [...] s/p Whipple on 03/01 who presents to [facility] on 03/[place] for new peripancreatic fluid collection [...] s/p Whipple on 03/01 who presents to [facility] 03/[place] for new peripancreatic abscess on [...] protocol - appreciate Hospital Medicine and DM TRAFFIC ASSISTANT recs - Repleting lytes - K and [...] Hyde MD Surgical Oncology Service Team Pager #[phone] 03/28/24 3:39 PM * Kristen Meza, GREEN FEED ATTENDANT - 03/28/2024 8:40 AM EDT Follow Up [...] s/p Whipple on 03/01 who presents to [facility] on 03/[place] for new peripancreatic abscess on [...] Considerations: Must d/c SGLT-2 Kristen Meza APRN [facility] Endocrinology Diabetes Management Pager [phone] Weekends please page [phone] 35 minute visit was spent with the [...] Crystal Rubio MD Internal Medicine, PGY3 Pager: [phone] * Luke Hyde MD - 03/27/2024 8:58 AM EDT Surgical Oncology Inpatient Progress Note Patient Name: Charles Nick ; Age: 4 1975; 48 y.o. Room/Bed: [facility] Today's Date: 03/27/24 ID: Charles Nick is a 48 y.o. 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 * Kristen Meza, GREEN FEED ATTENDANT - 03/26/2024 3:11 PM EDT Images from [...] 220* 321* 198 212* 175 ASSESSMENT Charles Ncik is a 48 y.o. 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 Room/Bed: [facility] Today's Date: 03/26/24 ID: Charles Nick is a 48 y.o. 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 hSerry Dillard PA-C Interventional Radiology IR Team Pager [phone] * Rosie Gaston RN - 03/26/2024 4:18 [...] of : 1975 AGE: 48 y.o. Address: [facility] [address] [place] [phone] (home) [phone] (work) Mobile: Telephone Information: Referring Provider: Edu [...] ; Age: 4 1975; 48 y.o. [facility] Today's Date: 03/25/24 ID: Charles Nick is a 48 y.o. 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 24 Hour Events: - Transferred from [facility] likely in DKA and w/ new peripancreatic [...] few days. Hospital Course: 03/24: Admitted from [facility]. IVF & abx started 03/25 HD1: HAGMA [...] s/p Whipple on 03/01 who presents to [facility] [place] 03[place] for new peripancreatic abscess on [...] Hepato Pancreato Biliary Surgery Service Team Pager #[phone] 03/25/24 9:55 AM Associated attestation - Rudi [...] post Whipple on 03/01 who presents to [facility] in transfer on 03/24 for intolerance to oral intake, leukocytosis, tachycardia, hypotension with CT finding of new peripancreatic abscess . IR History: None at [facility]. Antiplatelets: None. Anticoagulants: None. Recent Laboratories: Platelets: [...] Biopsy Liver Percutaneous 01/07/2023 Juan Wright MD [facility] INTERVENTIONL RAD PRO PART REMV PANC, PROX+REMV DUOD+ANAST N/A 03/01/2024 @CHAKA PROCEDURE (WRVU 52.84) performed by Rudi Hernandez MD at [facility] MAIN OR PRO TRANSFER SKIN PEDICLE FLAP N/A 03/01/2024 TRANSFER, INTERMEDIATE, ANY PEDICLE FLAP, ANY LOCATION (WRVU 4.77) performed by Rudi Hernandez MD at [facility] MAIN OR Medications: No current facility-administered [...] covered by insurance 15 mL 3 Insulin [place], Disposable, (BD Ultra-Fine Micro Pen Needle) 32 [...] mouth 2 times daily. 180 tablet 3 lsyulp-svedtavx-mzrcrgd (Zenpep) 40,000-126,000- 168,[address] capsule Take [...] post Whipple on 03/01 who presents [place] [facility] in transfer on 03/24 for intolerance to [...] post Whipple on 03/01 who presents to [facility] in transfer on 03/24 for intolerance to oral intake, leukocytosis, tachycardia, hypotension with CT finding of new peripancreatic abscess . IR History: None at [facility]. Antiplatelets: None. Anticoagulants: None. Recent Laboratories: Platelets: [...] Biopsy Liver Percutaneous 01/07/2023 Juan Wright MD [facility] INTERVENTIONL RAD PRO PART REMV PANC, PROX+REMV DUOD+ANAST N/A 03/01/2024 @CAHKA PROCEDURE (WRVU 52.84) performed by Rudi Hernandez MD at [facility] MAIN OR PRO TRANSFER SKIN PEDICLE FLAP N/A 03/01/2024 TRANSFER, INTERMEDIATE, ANY PEDICLE FLAP, ANY LOCATION (WRVU 4.77) performed by Rudi Hernandez MD at [facility] MAIN OR Medications: No current facility-administered [...] covered by insurance 15 mL 3 Insulin [place], Disposable, (BD Ultra-Fine Micro Pen Needle) 32 [...] mouth 2 times daily. 180 tablet 3 nqabhk-vwttnysh-vdpqkpx (Zenpep) 40,000-126,000- 168,[address] capsule Take [...] post Whipple on 03/01 who presents to [facility] [place] transfer on 03/24 for intolerance to [...] AND PHYSICAL Patient Name: Charles Nick MR#: [id number] : 1975 Admission Date: 03/24/2024 Indication for Admission: Perihepatic abscess History of Present Illness: Charles Nick is a 48 y.o. 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 He initially presented to [facility] and was transferred here for further care. [...] Biopsy Liver Percutaneous 01/07/2023 Juan Wright MD [facility] INTERVENTIONL RAD PRO PART REMV PANC, PROX+REMV DUOD+ANAST N/A 03/01/2024 @WHIPPLE PROCEDURE (WRVU 52.84) performed by Rudi Hernandez MD at [facility] MAIN OR PRO TRANSFER SKIN PEDICLE FLAP N/A 03/01/2024 TRANSFER, INTERMEDIATE, ANY PEDICLE FLAP, ANY LOCATION (WRVU 4.77) performed by Rudi Hernandez MD at [facility] MAIN OR Home Medications: Medications Prior [...] by insurance 15 mL 3 03/23/2024 Insulin [place], Disposable, (BD Ultra-Fine Micro Pen Needle) 32 [...] times daily. 180 tablet 3 Past Month vplziy-kklpfdab-gesuhku (Zenpep) 40,000-126,000- 168,[address] capsule Take [...] s/p Whipple on 03/01 who presents to [facility] on 03[place] for new peripancreatic abscess. Episodes [...] MD 03/24/2024 Surgical Oncology Service Team pager #[phone] documented in this encounter Procedure Notes * [...] to the planned procedure. Hand Hygiene: The enterprise architect manager did perform hand hygiene prior to line insertion. Catheter type: PICC Lot number: [id number] Procedure Technique: Skin was prepped with chlorhexidine. [...] information for follow-up [facility] [place] [address] [place] [address] [facility] [place] [address] [place] [address] Transportation: family or friend will provide Functional [...] Discharge: Patient is insured through: Primary Insurance: [facility] Payor: [facility] / Plan: [facility] PPO / Product Type: *No Product [...] s/p Whipple on 03/01 who presents to [facility] [place] 03[place] for new peripancreatic fluid collection [...] 1800 03/30/2024 1800 03/29/2024 1800 Adult TPN [[id number]] Adult TPN [[id number]] Adult TPN [[id number]] Order Status Active Last Dose in Progress [...] encounter: 119.7 kg (263 lb 14.3 oz). [place] Body Weight (IBW) (kg): 86.36 Wt Readings [...] maxillary line): Not assessed Lean Muscle Loss Catholic region (temporalis muscle): Mild Clavicle bone region [...] s/p Whipple on 03/01 who presents to [facility] on 03/24 for new peripancreatic abscess on [...] on admission. He had initially presented to [facility], but was subsequently transferred to [facility] for further care. On admission, [...] 03/25/2024 CT Guided Drain Pancreatic/Peripancreatic Joe Quintero, [facility] RAD CT SCAN IR BIOPSY LIVER PERCUTANEOUS - NON-FOCAL PARENCHYMA 01/07/2023 IR Biopsy Liver Percutaneous 01/07/2023 Juan Wright MD [facility] INTERVENTIONL RAD PRO PART REMV PANC, PROX+REMV DUOD+ANAST N/A 03/01/2024 @CHAKA PROCEDURE (WRVU 52.84) performed by Rudi Hernandez MD at [facility] MAIN OR PRO TRANSFER SKIN PEDICLE FLAP N/A 03/01/2024 TRANSFER, INTERMEDIATE, ANY PEDICLE FLAP, ANY LOCATION (WRVU 4.77) performed by Rudi Hernandez MD at [facility] MAIN OR Medications: Scheduled Meds: acetaminophen [...] concerns. Please page ID Red team (pager [phone]) with questions or concerns. Melisa Haney MD, MPH Fellow, Infectious Disease Pager: [phone] Epic Chat 03/30/2024 ID ATTENDING I have [...] s/p Whipple on 03/01 who presents to [facility] on 03[place] for new peripancreatic fluid collection [...] 1800 03/29/2024 1800 03/27/2024 1800 Adult TPN [[id number]] Adult TPN [[id number]] Adult TPN [[id number]] Order Status Active Last Dose in Progress [...] encounter: 119.7 kg (263 lb 14.3 oz). [place] Body Weight (IBW) (kg): 86.36 Wt Readings [...] maxillary line): Not assessed Lean Muscle Loss Catholic region (temporalis muscle): Mild Clavicle bone region [...] No Patient is insured through: Primary Insurance: [employer] Payor: [facility] / Plan: [facility] PPO / Product Type: *No Product [...] tpn/insulin cont on broad spectrum abx for abscess,[place] [facility] (r,p) Care Management will continue to [...] s/p Whipple on 03/01 who presents to [facility] on 03/24 for new peripancreatic fluid collection [...] time 03/29/2024 1800 03/27/2024 1800 Adult TPN [[id number]] Adult TPN [[id number]] Order Status Active Completed Last Admin New [...] encounter: 116.5 kg (256 lb 12.8 oz). [place] Body Weight (IBW) (kg): 86.36 Wt Readings [...] maxillary line): Not assessed Lean Muscle Loss Catholic region (temporalis muscle): Mild Clavicle bone region [...] s/p Whipple on 03/01 who presents to [facility] on 03/24 for new peripancreatic fluid collection [...] date and time 03/27/2024 1800 Adult TPN [[id number]] Order Status Active Frequency Continuous (TPN) Additives [...] encounter: 116.5 kg (256 lb 12.8 oz). [place] Body Weight (IBW) (kg): 86.36 Wt Readings [...] maxillary line): Not assessed Lean Muscle Loss Catholic region (temporalis muscle): Mild Clavicle bone region [...] from the original note were not included. [facility] [place] [address] [facility] Vascular Access Service Peripherally Inserted Central Catheter (PICC) Teaching Sheet Peripherally inserted central catheters (glbc-fh-henh) (PICC) are used when you need IV [...] midline catheter? PICC lines are used for jail treatments. PICC lines may be used for [...] can be set up via the nurse Rfid Analyst to help you. What are possible complications [...] s/p Whipple on 03/01 who presents to [facility] on 03/24 for new peripancreatic fluid collection [...] encounter: 116.5 kg (256 lb 12.8 oz). [place] Body Weight (IBW) (kg): 86.36 Wt Readings [...] maxillary line): Not assessed Lean Muscle Loss Catholic region (temporalis muscle): Mild Clavicle bone region [...] Consult Requested by: Surgery Reason for Consultation: hCarles Nick is a 48 y.o. 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 We are being consulted to assist with diabetes management and to provide a review of jail diabetes care in setting of euglycemic DKA [...] BID heparin (porcine) 5,000 Units Subcutaneous [facility] senna-docusate 2 tablet Oral BID polyethylene glycoL (MIRALAX) oral powder 17 g Oral Daily insulin lispro 1-4 Units Subcutaneous [facility] cefTRIAXone 1 g Intravenous Q24H metroNIDAZOLE 500 [...] s/p Whipple on 03/01 who presents to [facility] [place] 03[place]24 for new peripancreatic abscess on [...] Meza APRN Endocrinology Diabetes Management Service Pager: [phone] Weekends please page [phone] 80 minute visit was spent in counseling [...] bedside nurse, medical record, and Significant Other (Gas Specialist spoke with Jenelle, petra significant other. Patient was sleeping from procedure.) Introduced self/reviewed role; services accepted. Admitted From: [facility] Reason for Hospitalization: peripancreatic fluid collection on CT, s/p Whipple on 03/01. Past medical History: Past Medical History: Diagnosis Date CKD (chronic kidney disease) stage 3, GFR 30-59 ml/min 01/31/2011 Obesity 01/31/2011 Hospitalizations Within the Past 30 Days: previous discharge plan unsuccessful Current Decision-Making Capacity: Self If AD's have not been completed the following surrogate would be surrogate decision maker per [place] surrogate decision making law. (Only good for 180 days) Any patient receiving care in [place] must abide by [place] law. The hierarchy for surrogate decision making is: (a) Patient???s spouse or civil union partner unless there is a divorce proceeding, separation agreement, or restraining order limiting that person???s relationship with the patient. Jenelle Souza, SO [phone] (b) Any adult son or daughter of the patient. (c) Either parent of the patient. (d) Any adult brother or sister of the patient. (e) Any adult grandchild of the patient. (f) Any grandparent of the patient. (g) Any adult aunt, uncle, niece, or nephew of the patient. (h) A close friend of the patient. (i) The agent with financial power of collections attorney or a conservator appointed in accordance [...] is interested in placing a referral to [place]. OSVALDO goinslt placed for caregiver resources in [...] homeless or living in a longterm (including now)?: No In the past 12 months has the [employer], gas, oil, or water Desigual threatened to shut off services in your [...] (walking stick) Home Address confirmed as: [address] [address] Social & Family Supports: All names listed below confirmed with patient as current and correct Extended Emergency Contact Information Primary Emergency Contact: JENELLE SOUZA Address: [address] [address] [facility] Mobile Relation: Life Partner Current Care [...] Specific Information: none Health/Prescription Coverage: Primary Insurance: [facility] Payor: [facility] / Plan: [facility] PPO / Product Type: *No Product type* / Secondary Insurance: N/A ; Prescription Coverage: Yes Preferred Pharmacy: [facility] [address] [address] [facility] [address] - [place], [place] - [address] [address] Status: Patient is a : No Primary Care Provider confirmed: Olga Hoffman, YOCASTA [phone] Patient/Caregiver Goals of Treatment: Return home with SO and VNA services when medically ready. Potential Needs for Transition of Care: home health care Agency Referrals: I have met with the underwriting account representative to: discuss discharge planning needs. provide the [facility], Office of Care Management letter from the [employer] pertaining to rehab referrals. provide a letter describing our affiliations within the [facility] and educate about their right to choose where referrals are sent. provide a list of Home Health Agencies / Durable Medical Equipment vendors which serve their preferred geographic area. provided patient with [facility] Star Quality Rating handout. They have requested referrals to: [facility]. [address] [place] [address] Note routed to a Director [employer] who will communicate referrals to facilities and [...] abx, wound care, and trending labs. Referralto [place] for [facility]NA services placed. Care Management team will continue to follow and assist with discharge planing and coordination of care as indicated. JACKIE Mcguire, beehive kiln supervisor of Care Management Pager [phone] * Consult Note - Crystal Rubio MD [...] surgery recently, he decided to report to [facility]. At the outside hospital he was noted to have acidosis, elevated lactate and a fluid collection in the abdomen onCT abdomen pelvis. There was concern for sepsis in setting of intra-abdominal fluid collection. He was started on IV antibiotics. He received IV fluids as well. Subsequently he was transferred to [facility] for management of possible peripancreatic abscess. On arrival to [facility] HR 99, BP 120/85, RR 11, SpO2 [...] 03/25/2024 CT Guided Drain Pancreatic/Peripancreatic Joe Quintero, [facility] RAD CT SCAN IR BIOPSY LIVER PERCUTANEOUS - NON-FOCAL PARENCHYMA 01/07/2023 IR Biopsy Liver Percutaneous 01/07/2023 Juan Wright MD [facility] INTERVENTIONL RAD PRO PART REMV PANC, PROX+REMV DUOD+ANAST N/A 03/01/2024 @WHIPPLE PROCEDURE (WRVU 52.84) performed by Rudi Hernandez MD at [facility] MAIN OR PRO TRANSFER SKIN PEDICLE FLAP N/A 03/01/2024 TRANSFER, INTERMEDIATE, ANY PEDICLE FLAP, ANY LOCATION (WRVU 4.77) performed by Rudi Hernandez MD at [facility] MAIN OR FamHx: SocHx: Tob: EtOH: [...] Crystal Rubio MD Internal Medicine, PGY3 Pager: [phone] Associated attestation - John Paul Logan MD - 03/25/2024 7:04 PM EDT [...] CWCN. Patient seen this morning in room AD10Gvy bed, reason for visit explained to patient, [...] bed. 3. Cover with a Mepilex border. (MediWesabeney PS# [id number]) Supplies left at the bedside: 2 Medihoney alginate Wound Care Team will follow up peripherally. Discussed plan with: RN: Chris Please contact Francine Martinez RN on eD secure chat or the wound care team on pager [phone] with skin and wound care concerns or questions. Electronically Signed By: Francine Martinez RN * Plan of Care - Kassie Parker RN - 03/25/2024 1:39 AM EDT OUTCOME EVALUATION NOTE: OUTCOME SUMMARY: Admitted from [facility] for metabolic acidosis, intra-abdominal abscess, hypotension, N/V, [...] air, per pt's SO, dressing removed at [facility], foam dressing applied. PLAN MOVING FORWARD: IR [...] AM EDT Office Visit Hematology/Oncology at [address] [phone] Rodriguez Fowler MD [facility] [place] [address] Sehrry Cedillo APRN [address] [place] [address] DR HEMATOLOGY AND ONCOLOGY [place], [place] [id number] 05/28/2024 8:30 AM EDT Infusion Hematology Oncology at [address] [phone] 05/28/2024 9:30 AM EDT Clinical Support Hematology/Oncology at [address] [phone] [facility] DR HEMATOLOGY [place] [address] Scheduled Referrals Name Type Priority Associated Diagnoses [...] 4:35 AM EDT DIFFERENTIAL, AUTOMATED Routine 03/25/20 4:35 AM EDT BETA HYDROXYBUTYRATE Routine 03/25/2024 4:35 AM EDT CBC (WITH DIFF) Routine 03/25/2024 4:35 AM EDT BASIC METABOLIC PANEL Routine 03/25/2024 4:35 AM EDT POCT GLUCOSE Routine 03/25/2024 4:31 AM EDT POCT GLUCOSE Routine 03/24/2024 11:56 PM EDT HEMOGRAM Routine 03/24/2024 10:21 PM EDT DIFFERENTIAL, AUTOMATED Routine 03/24/20 10:21 PM EDT CBC (WITH DIFF) Routine [...] Abdominal drain injection. Indication for Procedure: Per Charles Lawrence is a 48 y.o. male with PMH [...] performed this procedure. ? Juan Wright MD IMG IR ORDERABLES * IR Drain Check/Change/Remove (04/08/2024 [...] MD Attending: Dr. Wright Joe Quintero DO [facility] IR ORDERABLES * Amylase Level Body Fluid (04/08/2024 9:30 AM EDT) Amylase, Fluid >7,500 unit/L [facility] Comment: Reference intervals are unavailable for this test in body fluids. Comparison of this result with the concentration in blood, serum, or plasma is recommended. This test has not been cleared by the [place] FDA. Performance characteristics of this test for the analysis of body fluids were determined by [facility] in accordance with CLIA requirements. This laboratory is qualified under CLIA to perform high-complexity testing. Amylase BF Type BASIA Drain [facility] BASIA Drain 04/08/2024 9:30 AM EDT 04/08/2024 9:40 AM EDT Narrative Resulting Agency Comment Spec In Lab Rudi Hernandez MD BODY FLUIDS AND OREN LS ORDERABLES [facility] [place] [address] * (ABNORMAL) Comprehensive metabolic panel (non-fasting) (04/08/2024 8:17 AM EDT) Glucose 183 65 - 199 mg/dL [facility] Comment:Diabetes: >=200 mg/d L plus symptoms Blood Urea Nitrogen 3(L) 10 - 20 mg/dL [facility] Creatinine 0.97 0.80 - 1.50 mg/dL [facility] Sodium 139 135 - 145 mmol/L [facility] Potassium 4.8 3.5 - 5.0 mmol/L [facility] Anion Gap 13 5 - 15 mmol/L [facility] Calcium 9.3 8.5 - 10.5 mg/dL [facility] Protein, Total 7.3 6.1 - 8.0 g/dL [facility] Albumin 3.6 3.2 - 5.2 g/dL [facility] Aspartate Aminotransferase 26 0 - 39 unit/L [facility] Alanine Aminotransferase 30 0 - 55 unit/L [facility] Alkaline Phosphatase 105 40 - 130 unit/L [facility] Bilirubin, Total 0.3 0.2 - 1.3 mg/dL [facility] Est Glomerular Filtration Rate 96 >=60 mL/min/1. 73 m?? [facility] Hernandez MD CHEMISTRY ORDERABLES Performing Organization Address [facility]/ZIP Co de Phone Number [facility] [place] [address] * POCT Glucose (04/01/2024 12:31 PM EDT) Glucose, POC 192 65 - 199 mg/dL [facility] Comment: Supplemental ranges: <140 mg/dL before meals <180 mg/dL all other times of the day Blood 04/01/2024 12:3 1 PM EDT 04/01/2024 12:31 PM EDT Rudi Hernandez MD POINT OF CARE TEST O RDERABLES Performing Organization Address [facility] Co de Phone Number [facility] [place] [address] * POCT Glucose (04/01/2024 7:33 AM EDT) Glucose, POC 156 65 - 199 mg/dL [facility] Comment: Supplemental ranges: <140 mg/dL before meals <180 mg/dL all other times of the day Blood 04/01/2024 7:33 AM EDT 04/01/2024 7:33 AM EDT Rudi Hernandez MD POINT OF CARE TEST O RDERABLES Performing Organization Address [facility] Co de Phone Number [facility] [place] [address] * Amylase Level Body Fluid BASIA Drain (04/01/2024 6:37 AM EDT) Amylase, Fluid >7,500 unit/L [facility] Comment: Reference intervals are unavailable for this test in body fluids. Comparison of this result with the concentration in blood, serum, or plasma is recommended. This test has not been cleared by the [place] FDA. Performance characteristics of this test for the analysis of body fluids were determined by [facility] in accordance with CLIA requirements. This laboratory is qualified under CLIA to perform high-complexity testing. Amylase BF Type BASIA Drain [facility] BASIA Drain 04/01/2024 6:37 AM EDT 04/01/2024 6:52 AM EDT Narrative Resulting Agency Comment Spec In Lab Rudi Hernandez MD BODY FLUIDS AND OREN LS ORDERABLES [facility] [place] [address] * Differential, Automated (04/01/2024 4:48 AM EDT) Neutrophil % 61.5 % [facility] [facility] Neutrophil Absolute 3.78 1.70 - 6.10 x10(3)/[facility] Lymph % 20.4 % [facility] Lymphocytes Abs 1.2 0.9 - 3.2 x10(3)/[facility] Monocyte % 11.2 % [facility] Monocyte Abs 0.7 0.3 - 0.9 x10(3)/[facility] Eos % 5.4 % [facility] Eosinophils Abs 0.3 0.0 - 0.4 x10(3)/[facility] Basophil % 1.0 % [facility] Baso Absolute 0.1 0.0 - 0.1 x10(3)/[facility] LAB[facility]ORY Immature Gran % 0.50 % [facility] Comment: Immature granulocytes(IG's)percentage and absolute count will include metamyelocytes, myelocytes, and promyelocytes. Blood smears from CBCs yielding IG's will be scanned manually for concordance. If this scan disagrees with the automated IG or if promyelocytes are noted, a manual differential will be performed. Immature Gran Absolute 0.03 0.00 - 0.04 x10(3)/mcL [facility] Blood 04/01/2024 4:48 AM EDT 04/01/2024 5:00 AM EDT Narrative Resulting Agency Comment Spec In Lab Luke Hyde MD HEMATOLOGY ORDERABLE S [facility] [place] [address] * (ABNORMAL) Hemogram (04/01/2024 4:48 AM EDT) White Blood Cell 6.1 4.0 - 9.5 x10(3)/[facility] LABORATORY Red Blood Cell 5.10 4.58 - 5.54 x10(6)/[facility] LABORATORY Hemoglobin 12.1(L) 13.7 - 16.5 g/dL [facility] Hematocrit 37.2(L) 40.5 - 48.5 % [facility] Mean Cell Volume 72.9(L) 82.9 - 93.1 [facility] LABORATORY Mean Cell Hemoglobin 23.7(L) 27.5 - 32.1 pg [facility] Mean Cell Hemoglobin Concentration 32.5 32.0 - 35.7 g/dL [facility] Platelet 150 145 - 357 x10(3)/[facility] LABORATORY RDW Standard Deviation 42.0 36.0 - 45.0 [facility] LABORATORY RDW coefficient of variation 17.0(H) 11.4 - 13.8 % [facility] Mean Platelet Volume 9.8 7.6 - 12.9 [facility] LABORATORY NRBC% auto 0.0 % [facility] NRBC Absolute 0.000 0.000 - 0.000 x10(3)/[facility] LABORATORY Blood 04/01/2024 4:48 AM EDT 04/01/2024 5:00 AM EDT Narrative Resulting Agency Comment Spec In Lab Luke Hyde MD HEMATOLOGY ORDERABLE S Performing Organization Address [facility] Co de Phone Number [facility] [place] [address] * Phosphorus (04/01/2024 4:48 AM EDT) Phosphorus 4.0 2.5 - 4.5 mg/dL [facility] Blood 04/01/2024 4:48 AM EDT 04/01/2024 5:00 AM EDT Narrative Resulting Agency Comment Spec In Lab Rudi Hernandez MD CHEMISTRY ORDERABLES Performing Organization Address [facility] Co de Phone Number [facility] [place] [address] * Magnesium (04/01/2024 4:48 AM EDT) Magnesium 0.97 0.69 - 1.07 mmol/L [facility] Blood 04/01/2024 4:48 AM EDT 04/01/2024 5:00 AM EDT Narrative Resulting Agency Comment Spec In Lab Rudi Hernandez MD CHEMISTRY ORDERABLES Performing Organization Address [facility] de Phone Number [facility] [place] [address] * (ABNORMAL) Basic Metabolic Panel (non-fasting) (04/01/2024 4:48 AM EDT) Glucose 165 65 - 199 mg/dL [facility] Comment:Diabetes: >=200 mg/d L plus symptoms Blood Urea Nitrogen 10 10 - 20 mg/dL [facility] Creatinine 0.70(L) 0.80 - 1.50 mg/dL [facility] Sodium 137 135 - 145 mmol/L [facility] Potassium 4.8 3.5 - 5.0 mmol/L [facility] Comment: Please note: ??Patients with WBC >100,000 may have falsely elevated Potassium levels. ??For accurate Potassium quantification in these patients send serum separator tube (gold top) for subsequent determinations. ??Contact the Clinical Chemistry Laboratory if there are any questions. Chloride 100 98 - 107 mmol/L [facility] Carbon Dioxide 29 22 - 31 mmol/L [facility] Anion Gap 8 5 - 15 mmol/L [facility] Calcium 8.9 8.5 - 10.5 mg/dL [facility] Hernandez MD CHEMISTRY ORDERABLES Performing Organization Address City/[facility]/ZIP Co de Phone Number [facility] [place] [address] * POCT Glucose (04/01/2024 3:09 AM EDT) Glucose, POC 184 65 - 199 mg/dL [facility] Comment: Supplemental ranges: <140 mg/dL before meals <180 mg/dL all other times of the day Blood 04/01/2024 3:09 AM EDT 04/01/2024 3:09 AM EDT Rudi Hernandez MD POINT OF CARE TEST O RDERABLES [facility] [place] [address] * POCT Glucose (03/31/2024 11:56 PM EDT) Glucose, POC 146 65 - 199 mg/dL [facility] Comment: Supplemental ranges: <140 mg/dL before meals <180 mg/dL all other times of the day Blood 03/31/2024 11:5 6 PM EDT 03/31/2024 11:56 PM EDT Rudi Hernandez MD POINT OF CARE TEST O RDERABLES Performing Organization Address City/[facility]/ZIP Co de Phone Number [facility] [place] [address] * POCT Glucose (03/31/2024 7:22 PM EDT) Glucose, POC 145 65 - 199 mg/dL [facility] Comment: Supplemental ranges: <140 mg/dL before meals <180 mg/dL all other times of the day Blood 03/31/2024 7:22 PM EDT 03/31/2024 7:22 PM EDT Rudi Hernandez MD POINT OF CARE TEST O RDERABLES [facility] [place] [address] * POCT Glucose (03/31/2024 4:15 PM EDT) Glucose, POC 155 65 - 199 mg/dL [facility] Comment: Supplemental ranges: <140 mg/dL before meals <180 mg/dL all other times of the day Blood 03/31/2024 4:15 PM EDT 03/31/2024 4:15 PM EDT Rudi Hernandez MD POINT OF CARE TEST O RDERABLES [facility] [place] [address] * Differential, Automated (03/31/2024 12:45 PM EDT) Pathologist [facility] Neutrophil % 63.5 % [facility] Neutrophil Absolute 3.70 1.70 - 6.10 x10(3)/[facility] LABORATORY Lymph % 19.6 % [facility] Lymphocytes Abs 1.1 0.9 - 3.2 x10(3)/[facility] Monocyte % 10.5 % [facility] Monocyte Abs 0.6 0.3 - 0.9 x10(3)/[facility] Eos % 5.0 % [facility] Eosinophils Abs 0.3 0.0 - 0.4 x10(3)/[facility] Basophil % 0.7 % [facility] Baso Absolute 0.0 0.0 - 0.1 x10(3)/[facility] Immature Gran % 0.70 % [facility] Comment: Immature granulocytes(IG's)percentage and absolute count will include metamyelocytes, myelocytes, and promyelocytes. Blood smears from CBCs yielding IG's will be scanned manually for concordance. If this scan disagrees with the automated IG or if promyelocytes are noted, a manual differential will be performed. Immature Gran Absolute 0.04 0.00 - 0.04 x10(3)/[facility] LAB[facility] Blood 03/31/2024 12:4 5 PM EDT 03/31/2024 12:56 PM EDT Narrative Resulting Agency Comment Spec In Lab Rudi Hernandez MD HEMATOLOGY ORDERABLE S [facility] [place] [address] * (ABNORMAL) Hemogram (03/31/2024 12:45 PM EDT) Pathologist [facility] White Blood Cell 5.8 4.0 - 9.5 x10(3)/mc L [facility] Red Blood Cell 4.96 4.58 - 5.54 x10(6)/mc [facility] Hemoglobin 11.9(L) 13.7 - 16.5 g/dL [facility] Hematocrit 37.4(L) 40.5 - 48.5 % [facility] Mean Cell Volume 75.4(L) 82.9 - 93.1 fL [facility] Mean Cell Hemoglobin 24.0(L) 27.5 - 32.1 pg [facility] Mean Cell Hemoglobin Concentration 31.8(L) 32.0 - 35.7 g/dL [facility] Platelet 162 145 - 357 x10(3)/[facility] LABORATORY RDW Standard Deviation 43.7 36.0 - 45.0 [facility] LABORATORY RDW coefficient of variation 17.1(H) 11.4 - 13.8 % [facility] Mean Platelet Volume 9.8 7.6 - 12.9 [facility] LABORATORY NRBC% auto 0.0 % [facility] NRBC Absolute 0.000 0.000 - 0.000 x10(3)/[facility] LABORATORY Blood 03/31/2024 12:4 5 PM EDT 03/31/2024 12:56 PM EDT Narrative Resulting Agency Comment Spec In Lab Rudi Hernandez MD HEMATOLOGY ORDERABLE S [facility] [place] [address] * (ABNORMAL) POCT Glucose (03/31/2024 12:20 PM EDT) Glucose, POC 263(H) 65 - 199 mg/dL [facility] Comment: Supplemental ranges: <140 mg/dL before meals <180 mg/dL all other times of the day Blood 03/31/2024 12:2 0 PM EDT 03/31/2024 12:20 PM EDT Rudi Hernandez MD POINT OF CARE TEST O RDERABLES Performing Organization Address [facility] Co de Phone Number [facility] [place] [address] * Phosphorus (03/31/2024 8:30 AM EDT) Phosphorus 3.6 2.5 - 4.5 mg/dL [facility] Blood 03/31/2024 8:30 AM EDT 03/31/2024 8:52 AM EDT Narrative Resulting Agency Comment Spec In Lab Rudi Hernandez MD CHEMISTRY ORDERABLES Performing Organization Address [facility] Phone Number [facility] [place] [address] * Magnesium (03/31/2024 8:30 AM EDT) Magnesium 0.93 0.69 - 1.07 mmol/L [facility] Blood 03/31/2024 8:30 AM EDT 03/31/2024 8:52 AM EDT Narrative Resulting Agency Comment Spec In Lab Rudi Hernandez MD CHEMISTRY ORDERABLES Performing Organization Address [facility] Co de Phone Number [facility] [place] [address] * (ABNORMAL) Basic Metabolic Panel (non-fasting) (03/31/2024 8:30 AM EDT) Glucose 185 65 - 199 mg/dL [facility] Comment:Diabetes: >=200 mg/d L plus symptoms Blood Urea Nitrogen 8(L) 10 - 20 mg/dL [facility] Creatinine 0.64(L) 0.80 - 1.50 mg/dL [facility] Sodium 136 135 - 145 mmol/L [facility] Potassium 4.7 3.5 - 5.0 mmol/L [facility] Comment: Please note: ??Patients with WBC >100,000 may have falsely elevated Potassium levels. ??For accurate Potassium quantification in these patients send serum separator tube (gold top) for subsequent determinations. ??Contact the Clinical Chemistry Laboratory if there are any questions. Chloride 100 98 - 107 mmol/L [facility] Carbon Dioxide 29 22 - 31 mmol/L [facility] Anion Gap 7 5 - 15 mmol/L [facility] Calcium 8.6 8.5 - 10.5 mg/dL [facility] Est Glomerular Filtration Rate 116 >=60 mL/min/1. 73 m?? [facility] Hernandez MD CHEMISTRY ORDERABLES Performing Organization Address City/[facility]/ZIP Co de Phone Number [facility] [place] [address] * POCT Glucose (03/31/2024 8:05 AM EDT) Glucose, POC 164 65 - 199 mg/dL [facility] Comment: Supplemental ranges: <140 mg/dL before meals <180 mg/dL all other times of the day Blood 03/31/2024 8:05 AM EDT 03/31/2024 8:05 AM EDT uRdi Hernandez MD POINT OF CARE TEST O RDERABLES [facility] [place] [address] * (ABNORMAL) POCT Glucose (03/31/2024 4:51 AM EDT) Glucose, POC 217(H) 65 - 199 mg/dL [facility] Comment: Supplemental ranges: <140 mg/dL before meals <180 mg/dL all other times of the day Blood 03/31/2024 4:51 AM EDT 03/31/2024 4:51 AM EDT Rudi Hernandez MD POINT OF CARE TEST O RDERABLES [facility] [place] [address] * POCT Glucose (03/30/2024 11:46 PM EDT) Glucose, POC 196 65 - 199 mg/dL [facility] Comment: Supplemental ranges: <140 mg/dL before meals <180 mg/dL all other times of the day Blood 03/30/2024 11:4 6 PM EDT 03/30/2024 11:46 PM EDT Rudi Hernandez MD POINT OF CARE TEST O RDERAVANNESSA Performing Organization Address City/[facility]/ZIP Co de Phone Number [facility] [place] [address] * POCT Glucose (03/30/2024 7:23 PM EDT) Glucose, POC 169 65 - 199 mg/dL [facility] Comment: Supplemental ranges: <140 mg/dL before meals <180 mg/dL all other times of the day Blood 03/30/2024 7:23 PM EDT 03/30/2024 7:23 PM EDT Rudi Hernandez MD POINT OF CARE TEST O RDERABLES [facility] [place] [address] * POCT Glucose (03/30/2024 4:28 PM EDT) Glucose, POC 174 65 - 199 mg/dL [facility] Comment: Supplemental ranges: <140 mg/dL before meals <180 mg/dL all other times of the day Blood 03/30/2024 4:28 PM EDT 03/30/2024 4:28 PM EDT Rudi Hernandez MD POINT OF CARE TEST O RDERAVANNESSA [facility] [place] [address] * POCT Glucose (03/30/2024 11:59 AM EDT) Glucose, POC 184 65 - 199 mg/dL [facility] Comment: Supplemental ranges: <140 mg/dL before meals <180 mg/dL all other times of the day Blood 03/30/2024 11:5 9 AM EDT 03/30/2024 11:59 AM EDT Rudi Hernandez MD POINT OF CARE TEST O RDERAVANNESSA [facility] [place] [address] * POCT Glucose (03/30/2024 7:32 AM EDT) Glucose, POC 166 65 - 199 mg/dL [facility] Comment: Supplemental ranges: <140 mg/dL before meals <180 mg/dL all other times of the day Blood 03/30/2024 7:32 AM EDT 03/30/2024 7:32 AM EDT Rudi Hernandez MD POINT OF CARE TEST O RDERAVANNESSA [facility] [place] [address] * Phosphorus (03/30/2024 6:00 AM EDT) Phosphorus 3.6 2.5 - 4.5 mg/dL [facility] Blood 03/30/2024 6:00 AM EDT 03/30/2024 6:12 AM EDT Narrative Resulting Agency Comment Spec In Lab Rudi Hernandez MD CHEMISTRY ORDERABLES Performing Organization Address [facility] Co de Phone Number [facility] [place] [address] * Magnesium (03/30/2024 6:00 AM EDT) Magnesium 0.93 0.69 - 1.07 mmol/L [facility] Blood 03/30/2024 6:00 AM EDT 03/30/2024 6:12 AM EDT Narrative Resulting Agency Comment Spec In Lab Rudi Hernandez MD CHEMISTRY ORDERABLES Performing Organization Address [facility] Co de Phone Number [facility] [place] [address] * (ABNORMAL) Basic Metabolic Panel (non-fasting) (03/30/2024 6:00 AM EDT) Glucose 208(H) 65 - 199 mg/dL [facility] Comment:Diabetes: >=200 mg/d L plus symptoms Blood Urea Nitrogen 7(L) 10 - 20 mg/dL [facility] Creatinine 0.59(L) 0.80 - 1.50 mg/dL [facility] Sodium 139 135 - 145 mmol/L [facility] Potassium 4.0 3.5 - 5.0 mmol/L [facility] Carbon Dioxide 31 22 - 31 mmol/L [facility] Anion Gap 8 5 - 15 mmol/L [facility] Calcium 8.6 8.5 - 10.5 mg/dL [facility] Est Glomerular Filtration Rate 119 >=60 mL/min/1. 73 m?? [facility] [...] ORDERABLES [facility] [place] [address] * POCT Glucose (03/30/2024 4:19 AM EDT) Glucose, POC 184 65 - 199 mg/dL [facility] Comment: Supplemental ranges: <140 mg/dL before meals <180 mg/dL all other times of the day Blood 03/30/2024 4:19 AM EDT 03/30/2024 4:19 AM EDT Rudi Hernandez MD POINT OF CARE TEST O RDERABLES [facility] [place] [address] * (ABNORMAL) POCT Glucose (03/29/2024 11:38 PM EDT) Glucose, POC 212(H) 65 - 199 mg/dL [facility] Comment: Supplemental ranges: <140 mg/dL before meals <180 mg/dL all other times of the day Blood 03/29/2024 11:3 8 PM EDT 03/29/2024 11:38 PM EDT Rudi Hernandez MD POINT OF CARE TEST O RDERABLES Performing Organization Address [facility] Co de Phone Number [facility] [place] [address] * POCT Glucose (03/29/2024 7:36 PM EDT) Glucose, POC 159 65 - 199 mg/dL [facility] Comment: Supplemental ranges: <140 mg/dL before meals <180 mg/dL all other times of the day Blood 03/29/2024 7:36 PM EDT 03/29/2024 7:36 PM EDT Rudi Hernandez MD POINT OF CARE TEST O RDERAVANNESSA Performing Organization Address [facility] Co ma Phone Number [facility] [place] [address] * POCT Glucose (03/29/2024 3:46 PM EDT) Glucose, POC 167 65 - 199 mg/dL [facility] Comment: Supplemental ranges: <140 mg/dL before meals <180 mg/dL all other times of the day Blood 03/29/2024 3:46 PM EDT 03/29/2024 3:46 PM EDT Rudi Hernandez MD POINT OF CARE TEST O RDERAVANNESSA Performing Organization Address [facility] Co de Phone Number [facility] [place] [address] * EKG 12 Lead (03/29/2024 3:33 PM EDT) Ventricular rate 73 BPM MUSE SYSTEM Atrial Rate 73 BPM MUSE SYSTEM P-R Interval 128 ms MUSE SYSTEM QRS Duration 90 ms MUSE SYSTEM Q-T Interval 402 ms MUSE SYSTEM QTC Calculated (Bezet) 442 ms MUSE SYSTEM Calculated P [place] 15 degrees MUSE SYSTEM Calculated R [place] 53 degrees MUSE SYSTEM Calculated T [place] 16 degrees MUSE SYSTEM INTERPRETATION Normal sinus rhythm Normal ECG When compared with ECG of 06-MAR-2024 06:30, QT has shortened Confirmed by MD Reynaldo, Avinash ([id number]) on 03/30/2024 9:28:45 AM MUSE SYSTEM 03/29/2024 3:33 PM EDT 03/30/2024 9:28 AM EDT Rudi Hernandez MD ECG ORDERABLES Performing Organization Address City/[facility]/ZIP Co de Phone Number MUSE SYSTEM * (ABNORMAL) POCT Glucose (03/29/2024 11:56 AM EDT) Glucose, POC 238(H) 65 - 199 mg/dL [facility] Comment: Supplemental ranges: <140 mg/dL before meals <180 mg/dL all other times of the day Blood 03/29/2024 11:5 6 AM EDT 03/29/2024 11:56 AM EDT Rudi Hernandez MD POINT OF CARE TEST O RDERABLES Performing Organization Address [facility] Co de Phone Number [facility] [place] [address] * POCT Glucose (03/29/2024 11:16 AM EDT) Glucose, POC 184 65 - 199 mg/dL [facility] Comment: Supplemental ranges: <140 mg/dL before meals <180 mg/dL all other times of the day Blood 03/29/2024 11:1 6 AM EDT 03/29/2024 11:16 AM EDT Rudi Hernandez MD POINT OF CARE TEST O RDERABLES Performing Organization Address City/[facility]/ZIP Co de Phone Number [facility] [place] [address] * POCT Glucose (03/29/2024 7:22 AM EDT) Pathologist [facility] Glucose, POC 187 65 - 199 mg/dL [facility] Comment: Supplemental ranges: <140 mg/dL before meals <180 mg/dL all other times of the day Blood 03/29/2024 7:22 AM EDT 03/29/2024 7:22 AM EDT Rudi Hernandez MD POINT OF CARE TEST O RDERABLES Performing Organization Address [facility] Co de Phone Number [facility] [place] [address] * Triglyceride (03/29/2024 4:30 AM EDT) [facility] Triglyceride 91 mg/dL [facility] Comment: Normal: ?<150 mg/dL Borderline High: 150-199 mg/dL High: ?200-499 mg/dL Very High: ? >pu=308 mg/dL Blood Venous Draw / Unknown 03/29/2024 4:30 AM EDT 03/29/2024 4:36 AM EDT Narrative Resulting Agency Comment Spec In Lab Rudi Hernandez MD CHEMISTRY ORDERABLES Performing Organization Address [facility] Co de Phone Number [facility] [place] [address] * (ABNORMAL) Hepatic Function Panel (03/29/2024 4:30 AM EDT) [facility] Protein, Total 5.4(L) 6.1 - 8.0 g/dL [facility] Albumin 2.7(L) 3.2 - 5.2 g/dL [facility] Aspartate Aminotransferase 10 0 - 39 unit/L [facility] Alanine Aminotransferase 8 0 - 55 unit/L [facility] Alkaline Phosphatase 66 40 - 130 unit/L [facility] Bilirubin, Total 0.2 0.2 - 1.3 mg/dL [facility] Bilirubin, Direct 0.1 0.0 - 0.3 mg/dL [facility] Blood Venous Draw / Unknown 03/29/2024 4:30 AM EDT 03/29/2024 4:36 AM EDT Narrative Resulting Agency Comment Spec In Lab Rudi Hernandez MD CHEMISTRY ORDERABLES [facility] [place] [address] * Differential, Automated (03/29/2024 4:30 AM EDT) Neutrophil % 70.7 % [facility] Neutrophil Absolute 4.58 1.70 - 6.10 x10(3)/[facility] LAB[facility] Lymph % 16.5 % [facility] Lymphocytes Abs 1.1 0.9 - 3.2 x10(3)/[facility] Monocyte % 8.2 % [facility] Monocyte Abs 0.5 0.3 - 0.9 x10(3)/[facility] Eos % 3.6 % [facility] Eosinophils Abs 0.2 0.0 - 0.4 x10(3)/[facility] Basophil % 0.5 % [facility] Baso Absolute 0.0 0.0 - 0.1 x10(3)/[facility] Immature Gran % 0.50 % [facility] Comment: Immature granulocytes(IG's)percentage and absolute count will include metamyelocytes, myelocytes, and promyelocytes. Blood smears from CBCs yielding IG's will be scanned manually for concordance. If this scan disagrees with the automated IG or if promyelocytes are noted, a manual differential will be performed. Immature Gran Absolute 0.03 0.00 - 0.04 x10(3)/[facility] Blood 03/29/2024 4:30 AM EDT 03/29/2024 4:35 AM EDT Narrative Resulting Agency Comment Spec In Lab Janette Austin MD HEMATOLOGY ORDERABLE S [facility] [place] [place] [address] * (ABNORMAL) Hemogram (03/29/2024 4:30 AM EDT) White Blood Cell 6.5 4.0 - 9.5 x10(3)/mc L [facility] Red Blood Cell 5.03 4.58 - 5.54 x10(6)/mc L [facility] Hemoglobin 12.0(L) 13.7 - 16.5 g/dL [facility] Hematocrit 36.6(L) 40.5 - 48.5 % [facility] Mean Cell Volume 72.8(L) 82.9 - 93.1 [facility] Mean Cell Hemoglobin 23.9(L) 27.5 - 32.1 pg [facility] Mean Cell Hemoglobin Concentration 32.8 32.0 - 35.7 g/dL [facility] Platelet 152 145 - 357 x10(3)/ L [facility] RDW Standard Deviation 40.4 36.0 - 45.0 [facility] RDW coefficient of variation 15.7(H) 11.4 - 13.8 % [facility] Mean Platelet Volume 9.5 7.6 - 12.9 [facility] NRBC% auto 0.0 % [facility] NRBC Absolute 0.000 0.000 - 0.000 x10(3)/[facility] Blood 03/29/2024 4:30 AM EDT 03/29/2024 4:35 AM EDT Narrative Resulting Agency Comment Spec In Lab Janette Austin MD HEMATOLOGY ORDERABLE S [facility] [place] [address] * Magnesium (03/29/2024 4:30 AM EDT) Magnesium 0.87 0.69 - 1.07 mmol/L [facility] Blood 03/29/2024 4:30 AM EDT 03/29/2024 4:35 AM EDT Narrative Resulting Agency Comment Spec In Lab Rudi Hernandez MD CHEMISTRY ORDERABLES [facility] [place] [address] * Phosphorus (03/29/2024 4:30 AM EDT) Pathologist [facility] Phosphorus 2.9 2.5 - 4.5 mg/dL [facility] Blood 03/29/2024 4:30 AM EDT 03/29/2024 4:35 AM EDT Narrative Resulting Agency Comment Spec In Lab Rudi Hernandez MD CHEMISTRY ORDERABLES Performing Organization Address City/[facility]/ZIP Co de Phone Number [facility] [place] [address] * (ABNORMAL) Basic Metabolic Panel (non-fasting) (03/29/2024 4:30 AM EDT) Pathologist [facility] Glucose 201(H) 65 - 199 mg/dL [facility] Comment:Diabetes: >=200 mg/d L plus symptoms Blood Urea Nitrogen 5(L) 10 - 20 mg/dL [facility] Creatinine 0.54(L) 0.80 - 1.50 mg/dL [facility] questions. Chloride 95(L) 98 - 107 mmol/L [facility] Carbon Dioxide 31 22 - 31 mmol/L [facility] Anion Gap 10 5 - 15 mmol/L [facility] Calcium 8.5 8.5 - 10.5 mg/dL [facility] Est Glomerular Filtration Rate 122 >=60 mL/min/1. 73 m?? [facility] Hernandez MD CHEMISTRY ORDERABLES Performing Organization Address City/[facility]/ZIP Co de Phone Number [facility] [place] [address] * POCT Glucose (03/29/2024 4:11 AM EDT) Glucose, POC 195 65 - 199 mg/dL [facility] Comment: Supplemental ranges: <140 mg/dL before meals <180 mg/dL all other times of the day Blood 03/29/2024 4:11 AM EDT 03/29/2024 4:11 AM EDT Rudi Hernandez MD POINT OF CARE TEST O RDERABLES Performing Organization Address City/[facility]/ZIP Co de Phone Number [facility] [place] [address] * POCT Glucose (03/29/2024 12:05 AM EDT) Glucose, POC 187 65 - 199 mg/dL [facility] Comment: Supplemental ranges: <140 mg/dL before meals <180 mg/dL all other times of the day Blood 03/29/2024 12:0 5 AM EDT 03/29/2024 12:05 AM EDT Rudi Hernandez MD POINT OF CARE TEST O RDERABLES Performing Organization Address City/[facility]/ZIP Co de Phone Number [facility] [place] [address] * POCT Glucose (03/28/2024 8:51 PM EDT) Glucose, POC 171 65 - 199 mg/dL [facility] Comment: Supplemental ranges: <140 mg/dL before meals <180 mg/dL all other times of the day Blood 03/28/2024 8:51 PM EDT 03/28/2024 8:51 PM EDT Rudi Hernandez MD POINT OF CARE TEST O RDERABLES Performing Organization Address [facility] Co de Phone Number [facility] [place] [address] * (ABNORMAL) Phosphorus (03/28/2024 5:30 PM EDT) Phosphorus 2.0(L) 2.5 - 4.5 mg/dL [facility] Blood 03/28/2024 5:30 PM EDT 03/28/2024 5:36 PM EDT Narrative Resulting Agency Comment Spec In Lab Rudi Hernandez MD CHEMISTRY ORDERABLES Performing Organization Address [facility] Co de Phone Number [facility] [place] [address] * Magnesium (03/28/2024 5:30 PM EDT) Magnesium 0.78 0.69 - 1.07 mmol/L [facility] Blood 03/28/2024 5:30 PM EDT 03/28/2024 5:36 PM EDT Narrative Resulting Agency Comment Spec In Lab Rudi Hernandez MD CHEMISTRY ORDERABLES [facility] [place] [address] * (ABNORMAL) Basic Metabolic Panel (non-fasting) (03/28/2024 5:30 PM EDT) Glucose 194 65 - 199 mg/dL [facility] Comment:Diabetes: >=200 mg/d L plus symptoms Blood Urea Nitrogen 4(L) 10 - 20 mg/dL [facility] Creatinine 0.55(L) 0.80 - 1.50 mg/dL [facility] Sodium 139 135 - 145 mmol/L [facility] Carbon Dioxide 31 22 - 31 mmol/L [facility] Anion Gap 8 5 - 15 mmol/L [facility] Calcium 8.4(L) 8.5 - 10.5 mg/dL [facility] Est Glomerular Filtration Rate 121 >=60 mL/min/1. 73 m?? [facility] Hernandez MD CHEMISTRY ORDERABLES Performing Organization Address City/[facility]/ZIP Co de Phone Number [facility] [place] [address] * POCT Glucose (03/28/2024 4:10 PM EDT) Glucose, POC 164 65 - 199 mg/dL [facility] Comment: Supplemental ranges: <140 mg/dL before meals <180 mg/dL all other times of the day Blood 03/28/2024 4:10 PM EDT 03/28/2024 4:10 PM EDT Rudi Hernandez MD POINT OF CARE TEST O RDERABLES Performing Organization Address [facility] Co de Phone Number [facility] [place] [address] * (ABNORMAL) POCT Glucose (03/28/2024 12:00 PM EDT) Glucose, POC 209(H) 65 - 199 mg/dL [facility] Comment: Supplemental ranges: <140 mg/dL before meals <180 mg/dL all other times of the day Blood 03/28/2024 12:0 0 PM EDT 03/28/2024 12:00 PM EDT Rudi Hernandez MD POINT OF CARE TEST O RDERAVANNESSA Performing Organization Address City/[facility]/ZIP Co de Phone Number [facility] [place] [address] * POCT Glucose (03/28/2024 7:41 AM EDT) Glucose, POC 193 65 - 199 mg/dL [facility] Comment: Supplemental ranges: <140 mg/dL before meals <180 mg/dL all other times of the day Blood 03/28/2024 7:41 AM EDT 03/28/2024 7:41 AM EDT Rudi Hernandez MD POINT OF CARE TEST O RDERABLES Performing Organization Address [facility] Co de Phone Number [facility] [place] [address] * Phosphorus (03/28/2024 7:35 AM EDT) Phosphorus 2.6 2.5 - 4.5 mg/dL [facility] Blood 03/28/2024 7:35 AM EDT 03/28/2024 7:51 AM EDT Narrative Resulting Agency Comment Spec In Lab Rudi Hernandez MD CHEMISTRY ORDERABLES Performing Organization Address [facility] Co de Phone Number [facility] [place] [address] * Magnesium (03/28/2024 7:35 AM EDT) Magnesium 0.78 0.69 - 1.07 mmol/L [facility] Blood 03/28/2024 7:35 AM EDT 03/28/2024 7:51 AM EDT Narrative Resulting Agency Comment Spec In Lab Rudi Hernandez MD CHEMISTRY ORDERABLES Performing Organization Address [facility] Co de Phone Number [facility] [place] [address] * (ABNORMAL) Basic Metabolic Panel (non-fasting) (03/28/2024 7:35 AM EDT) Glucose 215(H) 65 - 199 mg/dL [facility] Comment:Diabetes: >=200 mg/d L plus symptoms Blood Urea Nitrogen 3(L) 10 - 20 mg/dL [facility] Creatinine 0.56(L) 0.80 - 1.50 mg/dL [facility] Sodium 140 135 - 145 mmol/L [facility] Carbon Dioxide 29 22 - 31 mmol/L [facility] Anion Gap 11 5 - 15 mmol/L [facility] Calcium 8.3(L) 8.5 - 10.5 mg/dL [facility] Est Glomerular Filtration Rate 121 >=60 mL/min/1. 73 m?? [facility] ORDERABLES [facility] [place] [address] * POCT Glucose (03/28/2024 4:14 AM EDT) Glucose, POC 194 65 - 199 mg/dL [facility] Comment: Supplemental ranges: <140 mg/dL before meals <180 mg/dL all other times of the day Blood 03/28/2024 4:14 AM EDT 03/28/2024 4:14 AM EDT Rudi Hernandez MD POINT OF CARE TEST O RDERABLES [facility] [place] [address] * POCT Glucose (03/28/2024 12:36 AM EDT) Glucose, POC 196 65 - 199 mg/dL [facility] Comment: Supplemental ranges: <140 mg/dL before meals <180 mg/dL all other times of the day Blood 03/28/2024 12:3 6 AM EDT 03/28/2024 12:36 AM EDT Rudi Hernandez MD POINT OF CARE TEST O ARASHERABLES Performing Organization Address City/[facility]/ZIP Co de Phone Number [facility] [place] [address] * (ABNORMAL) Hemogram (03/28/2024 12:30 AM EDT) White Blood Cell 5.4 4.0 - 9.5 x10(3)/ L [facility] Red Blood Cell 4.89 4.58 - 5.54 x10(6)/mc L [facility] Hemoglobin 11.5(L) 13.7 - 16.5 g/dL [facility] Hematocrit 34.8(L) 40.5 - 48.5 % [facility] Mean Cell Volume 71.2(L) 82.9 - 93.1 fL [facility] Mean Cell Hemoglobin 23.5(L) 27.5 - 32.1 pg [facility] Mean Cell Hemoglobin Concentration 33.0 32.0 - 35.7 g/dL [facility] Platelet 185 145 - 357 x10(3)/mc L [facility] RDW Standard Deviation 41.1 36.0 - 45.0 fL [facility] RDW coefficient of variation 16.1(H) 11.4 - 13.8 % [facility] Mean Platelet Volume 9.6 7.6 - 12.9 fL [facility] NRBC% auto 0.0 % [facility] NRBC Absolute 0.000 0.000 - 0.000 x10(3)/mc L [facility] Blood 03/28/2024 12:3 0 AM EDT 03/28/2024 12:59 AM EDT Narrative Resulting Agency Comment Spec In Lab Rudi Hernandez MD HEMATOLOGY ORDERABLE S Performing Organization Address City/[facility]/ZIP Co de Phone Number [facility] [place] [address] * POCT Glucose (03/27/2024 8:24 PM EDT) Glucose, POC 162 65 - 199 mg/dL [facility] Comment: Supplemental ranges: <140 mg/dL before meals <180 mg/dL all other times of the day Blood 03/27/2024 8:24 PM EDT 03/27/2024 8:24 PM EDT Rudi Hernandez MD POINT OF CARE TEST O RDERABLES Performing Organization Address City/[facility]/ZIP Co de Phone Number [facility] [place] [address] * Phosphorus (03/27/2024 6:10 PM EDT) Phosphorus 2.5 2.5 - 4.5 mg/dL [facility] Blood 03/27/2024 6:10 PM EDT 03/27/2024 6:25 PM EDT Narrative Resulting Agency Comment Spec In Lab Rudi Hernandez MD CHEMISTRY ORDERABLES Performing Organization Address City/[facility]/ZIP Co de Phone Number [facility] [place] [address] * Magnesium (03/27/2024 6:10 PM EDT) Magnesium 0.74 0.69 - 1.07 mmol/L [facility] Blood 03/27/2024 6:10 PM EDT 03/27/2024 6:25 PM EDT Narrative Resulting Agency Comment Spec In Lab Rudi Hernandez MD CHEMISTRY ORDERABLES [facility] [place] [address] * (ABNORMAL) Basic Metabolic Panel (non-fasting) (03/27/2024 6:10 PM EDT) Glucose 153 65 - 199 mg/dL [facility] Comment:Diabetes: >=200 mg/d L plus symptoms Blood Urea Nitrogen 2(L) 10 - 20 mg/dL [facility] Creatinine 0.65(L) 0.80 - 1.50 mg/dL [facility] Sodium 142 135 - 145 mmol/L [facility] Potassium 3.1(L) 3.5 - 5.0 mmol/L [facility] Comment: Please note: ??Patients with WBC >100,000 may have falsely elevated Potassium levels. ??For accurate Potassium quantification in these patients send serum separator tube (gold top) for subsequent determinations. ??Contact the Clinical Chemistry Laboratory if there are any questions. Chloride 105 98 - 107 mmol/L [facility] Carbon Dioxide 27 22 - 31 mmol/L [facility] Anion Gap 10 5 - 15 mmol/L [facility] Calcium 8.4(L) 8.5 - 10.5 mg/dL [facility] Est Glomerular Filtration Rate 116 >=60 mL/min/1. 73 m?? [facility] ORDERABLES [facility] [place] [address] * POCT Glucose (03/27/2024 3:53 PM EDT) Glucose, POC 144 65 - 199 mg/dL [facility] Comment: Supplemental ranges: <140 mg/dL before meals <180 mg/dL all other times of the day Blood 03/27/2024 3:53 PM EDT 03/27/2024 3:53 PM EDT Rudi Hernandez MD POINT OF CARE TEST O RDERABLES Performing Organization Address [facility] Co de Phone Number [facility] [place] [address] * POCT Glucose (03/27/2024 12:04 PM EDT) Glucose, POC 155 65 - 199 mg/dL [facility] Comment: Supplemental ranges: <140 mg/dL before meals <180 mg/dL all other times of the day Blood 03/27/2024 12:0 4 PM EDT 03/27/2024 12:04 PM EDT Rudi Hernandez MD POINT OF CARE TEST O RDERABLES Performing Organization Address City/[facility]/ZIP Co de Phone Number [facility] [place] [address] * POCT Glucose (03/27/2024 8:00 AM EDT) Glucose, POC 154 65 - 199 mg/dL [facility] Comment: Supplemental ranges: <140 mg/dL before meals <180 mg/dL all other times of the day Blood 03/27/2024 8:00 AM EDT 03/27/2024 8:00 AM EDT Rudi Hernandez MD POINT OF CARE TEST O RDERABLES [facility] [place] [address] * (ABNORMAL) Basic Metabolic Panel (non-fasting) (03/27/2024 5:22 AM EDT) [facility] Signature Glucose 178 65 - 199 mg/dL [facility] Comment:Diabetes: >=200 mg/d L plus symptoms Blood Urea Nitrogen 3(L) 10 - 20 mg/dL [facility] Creatinine 0.70(L) 0.80 - 1.50 mg/dL [facility] Sodium 142 135 - 145 mmol/L [facility] questions. Chloride 109(H) 98 - 107 mmol/L [facility] Carbon Dioxide 24 22 - 31 mmol/L [facility] Anion Gap 9 5 - 15 mmol/L [facility] Calcium 8.5 8.5 - 10.5 mg/dL [facility] Hernandez MD CHEMISTRY ORDERABLES Performing Organization Address City/[facility]/ZIP Co de Phone Number [facility] [place] [address] * Phosphorus (03/27/2024 5:22 AM EDT) Phosphorus 2.8 2.5 - 4.5 mg/dL [facility] Blood 03/27/2024 5:22 AM EDT 03/27/2024 5:35 AM EDT Narrative Resulting Agency Comment Spec In Lab Rudi Hernandez MD CHEMISTRY ORDERABLES Performing Organization Address [facility] Co de Phone Number [facility] [place] [address] * Magnesium (03/27/2024 5:22 AM EDT) Magnesium 0.78 0.69 - 1.07 mmol/L [facility] Blood 03/27/2024 5:22 AM EDT 03/27/2024 5:35 AM EDT Narrative Resulting Agency Comment Spec In Lab Rudi Hernandez MD CHEMISTRY ORDERABLES Performing Organization Address [facility] Co de Phone Number [facility] [place] [address] * POCT Glucose (03/27/2024 4:53 AM EDT) Glucose, POC 156 65 - 199 mg/dL [facility] Comment: Supplemental ranges: <140 mg/dL before meals <180 mg/dL all other times of the day Blood 03/27/2024 4:53 AM EDT 03/27/2024 4:53 AM EDT Rudi Hernandez MD POINT OF CARE TEST O RDERABLES Performing Organization Address [facility] Co de Phone Number [facility] [place] [address] * Phosphorus (03/27/2024 12:14 AM EDT) Phosphorus 2.8 2.5 - 4.5 mg/dL [facility] Blood 03/27/2024 12:1 4 AM EDT 03/27/2024 12:42 AM EDT Narrative Resulting Agency Comment Spec In Lab Rudi Hernandez MD CHEMISTRY ORDERABLES Performing Organization Address [facility] Phone Number [facility] [place] [address] * Magnesium (03/27/2024 12:14 AM EDT) Magnesium 0.79 0.69 - 1.07 mmol/L [facility] Blood 03/27/2024 12:1 4 AM EDT 03/27/2024 12:42 AM EDT Narrative Resulting Agency Comment Spec In Lab Rudi Hernandez MD CHEMISTRY ORDERABLES Performing Organization Address [facility] de Phone Number [facility] [place] [address] * Differential, Automated (03/27/2024 12:14 AM EDT) Neutrophil % 69.7 % [facility] Neutrophil Absolute 3.73 1.70 - 6.10 x10(3)/[facility] Lymph % 17.6 % [facility] Lymphocytes Abs 0.9 0.9 - 3.2 x10(3)/[facility] Monocyte % 9.7 % [facility] Monocyte Abs 0.5 0.3 - 0.9 x10(3)/[facility] Eos % 1.9 % [facility] Eosinophils Abs 0.1 0.0 - 0.4 x10(3)/[facility] Basophil % 0.7 % [facility] Baso Absolute 0.0 0.0 - 0.1 x10(3)/[facility] Immature Gran % 0.40 % [facility] Comment: Immature granulocytes(IG's)percentage and absolute count will include metamyelocytes, myelocytes, and promyelocytes. Blood smears from CBCs yielding IG's will be scanned manually for concordance. If this scan disagrees with the automated IG or if promyelocytes are noted, a manual differential will be performed. Immature Gran Absolute 0.02 0.00 - 0.04 x10(3)/[facility] Blood Venous Draw / Unknown 03/27/2024 12:14 AM EDT 03/27/2024 12:40 AM EDT Narrative Resulting Agency Comment Spec In Lab Janette Austin MD HEMATOLOGY ORDERABLE S Performing Organization Address City/State/[facility] Co de Phone Number [facility] [place] [address] * (ABNORMAL) Hemogram (03/27/2024 12:14 AM EDT) White Blood Cell 5.4 4.0 - 9.5 x10(3)/[facility] LAB[facility] Red Blood Cell 5.08 4.58 - 5.54 x10(6)/[facility] Hemoglobin 12.0(L) 13.7 - 16.5 g/dL [facility] Hematocrit 36.7(L) 40.5 - 48.5 % [facility] Mean Cell Volume 72.2(L) 82.9 - 93.1 fL [facility] Mean Cell Hemoglobin 23.6(L) 27.5 - 32.1 pg [facility] Mean Cell Hemoglobin Concentration 32.7 32.0 - 35.7 g/dL [facility] Platelet 215 145 - 357 x10(3)/mc L [facility] RDW Standard Deviation 41.8 36.0 - 45.0 fL [facility] RDW coefficient of variation 16.3(H) 11.4 - 13.8 % [facility] Mean Platelet Volume 9.8 7.6 - 12.9 fL [facility] NRBC% auto 0.0 % [facility] NRBC Absolute 0.000 0.000 - 0.000 x10(3)/mc L [facility] Blood Venous Draw / Unknown 03/27/2024 12:14 AM EDT 03/27/2024 12:40 AM EDT Narrative Resulting Agency Comment Spec In Lab Janette Austin MD HEMATOLOGY ORDERABLE S [facility] [place] [address] * Lavender Tube HOLD (03/27/2024 12:14 AM EDT) Pathologist [facility] Lavender Hold Sample in lab. [facility] Blood Venous Draw / Unknown 03/27/2024 12:14 AM EDT 03/27/2024 12:40 AM EDT Chalino Cristina MD HEMATOLOGY ORDERABLE S [facility] [place] [address] * (ABNORMAL) Basic Metabolic Panel (non-fasting) (03/27/2024 12:14 AM EDT) Glucose 154 65 - 199 mg/dL [facility] Comment:Diabetes: >=200 mg/d L plus symptoms Blood Urea Nitrogen 3(L) 10 - 20 mg/dL [facility] Creatinine 0.71(L) 0.80 - 1.50 mg/dL [facility] Sodium 144 135 - 145 mmol/L [facility] questions. Chloride 111(H) 98 - 107 mmol/L [facility] Carbon Dioxide 23 22 - 31 mmol/L [facility] Anion Gap 10 5 - 15 mmol/L [facility] Calcium 8.5 8.5 - 10.5 mg/dL [facility] Est Glomerular Filtration Rate 112 >=60 mL/min/1. 73 m?? [facility] ORDERABLES [facility] [place] [address] * POCT Glucose (03/27/2024 12:10 AM EDT) Glucose, POC 136 65 - 199 mg/dL [facility] Comment: Supplemental ranges: <140 mg/dL before meals <180 mg/dL all other times of the day Blood 03/27/2024 12:1 0 AM EDT 03/27/2024 12:10 AM EDT Rudi Hernandez MD POINT OF CARE TEST O RDERABLES Performing Organization Address City/[facility]/ZIP Co de Phone Number [facility] [place] [address] * Phosphorus (03/26/2024 9:33 PM EDT) Phosphorus 2.8 2.5 - 4.5 mg/dL [facility] [facility] Blood 03/26/2024 9:33 PM EDT 03/26/2024 9:37 PM EDT Narrative Resulting Agency Comment Spec In Lab Rudi Hernandez MD CHEMISTRY ORDERABLES Performing Organization Address [facility] Co de Phone Number [facility] [place] [address] * Magnesium (03/26/2024 9:33 PM EDT) Magnesium 0.80 0.69 - 1.07 mmol/L [facility] Blood 03/26/2024 9:33 PM EDT 03/26/2024 9:37 PM EDT Narrative Resulting Agency Comment Spec In Lab Rudi Hernandez MD CHEMISTRY ORDERABLES Performing Organization Address [facility] Co de Phone Number [facility] [place] [address] * POCT Glucose (03/26/2024 8:02 PM EDT) Glucose, POC 128 65 - 199 mg/dL [facility] Comment: Supplemental ranges: <140 mg/dL before meals <180 mg/dL all other times of the day Blood 03/26/2024 8:02 PM EDT 03/26/2024 8:02 PM EDT Rudi Hernandez MD POINT OF CARE TEST O RDERABLES Performing Organization Address City/[facility]/ZIP Co de Phone Number [facility] [place] [address] * POCT Glucose (03/26/2024 5:05 PM EDT) Glucose, POC 144 65 - 199 mg/dL [facility] Comment: Supplemental ranges: <140 mg/dL before meals <180 mg/dL all other times of the day Blood 03/26/2024 5:05 PM EDT 03/26/2024 5:05 PM EDT Rudi Hernandez MD POINT OF CARE TEST O RDERABLES Performing Organization Address [facility] Co de Phone Number [facility] [place] [address] * (ABNORMAL) Phosphorus (03/26/2024 4:30 PM EDT) [facility] Signature Phosphorus 2.3(L) 2.5 - 4.5 mg/dL [facility] Blood 03/26/2024 4:30 PM EDT 03/26/2024 4:48 PM EDT Narrative Resulting Agency Comment Spec In Lab Rudi Hernandez MD CHEMISTRY ORDERABLES Performing Organization Address [facility] Co de Phone Number [facility] [place] [address] * Magnesium (03/26/2024 4:30 PM EDT) Magnesium 0.81 0.69 - 1.07 mmol/L [facility] Blood 03/26/2024 4:30 PM EDT 03/26/2024 4:48 PM EDT Narrative Resulting Agency Comment Spec In Lab Rudi Hernandez MD CHEMISTRY ORDERABLES Performing Organization Address City/[facility]/ZIP Co de Phone Number [facility] [place] [address] * (ABNORMAL) Basic Metabolic Panel (non-fasting) (03/26/2024 4:30 PM EDT) Glucose 164 65 - 199 mg/dL [facility] Comment:Diabetes: >=200 mg/d L plus symptoms Blood Urea Nitrogen 4(L) 10 - 20 mg/dL [facility] Creatinine 0.66(L) 0.80 - 1.50 mg/dL [facility] Sodium 140 135 - 145 mmol/L [facility] questions. Chloride 110(H) 98 - 107 mmol/L [facility] Carbon Dioxide 19(L) 22 - 31 mmol/L [facility] Anion Gap 11 5 - 15 mmol/L [facility] Calcium 8.4(L) 8.5 - 10.5 mg/dL [facility] Est Glomerular Filtration Rate 115 >=60 mL/min/1. 73 m?? [facility] ORDERABLES [facility] [place] [address] * Place PICC Line: Contact Vascular Access Page [phone] Extremity to exclude: No restrictions; Is PICC [...] to the planned procedure. Hand Hygiene: The enterprise architect manager did perform hand hygiene prior to line insertion. Catheter type: PICC Lot number: [id number] Procedure Technique: Skin was prepped with chlorhexidine. [...] Guidance (IV Team) (03/26/2024 4:02 PM EDT) [employer] WORKSTATION ID [id number] [facility] Anatomical Region Laterality Modality N/A Radio Fluoroscop [...] have questions please contact the health home care music therapist that requested your imaging first. ? Electronically signed by: Bryan Machado MD, [facility] ??([phone]), at 03/26/2024 4:17 PM Narrative 03/26/2024 4:17 [...] FINDINGS: Intraprocedural frontal radiograph (final image time :18:50) of the mediastinum demonstrates a right PICC [...] who have questions please contactthe health home care music therapist that requested your imaging first. Rudi Hernandez MD IMG FLUORO ORDERABLE S * POCT Glucose (03/26/2024 1:04 PM EDT) Glucose, POC 126 65 - 199 mg/dL [facility] Comment: Supplemental ranges: <140 mg/dL before meals <180 mg/dL all other times of the day Blood 03/26/2024 1:04 PM EDT 03/26/2024 1:04 PM EDT Rudi Hernandez MD POINT OF CARE TEST O RDERABLES [facility] [place] [address] * (ABNORMAL) Phosphorus (03/26/2024 11:37 AM EDT) Phosphorus 1.3(Critic al) 2.5 - 4.5 mg/dL [facility] Comment:called by tmp /read back by (yang fajardo)/ 03/26/24 @1247 Blood 03/26/2024 11:3 7 AM EDT 03/26/2024 11:53 AM EDT Narrative Resulting Agency Comment Spec In Lab Rudi Hernandez MD CHEMISTRY ORDERABLES Performing Organization Address City/[facility]/ZIP Co de Phone Number [facility] [place] [address] * Magnesium (03/26/2024 11:37 AM EDT) Magnesium 0.87 0.69 - 1.07 mmol/L [facility] Blood 03/26/2024 11:3 7 AM EDT 03/26/2024 11:53 AM EDT Narrative Resulting Agency Comment Spec In Lab Rudi Hernandez MD CHEMISTRY ORDERABLES Performing Organization Address City/[facility] Co de Phone Number [facility] [place] [address] * (ABNORMAL) Basic Metabolic Panel (non-fasting) (03/26/2024 11:37 AM EDT) Glucose 176 65 - 199 mg/dL [facility] Comment:Diabetes: >=200 mg/d L plus symptoms Blood Urea Nitrogen 4(L) 10 - 20 mg/dL [facility] Creatinine 0.69(L) 0.80 - 1.50 mg/dL [facility] Sodium 143 135 - 145 mmol/L [facility] questions. Chloride 113(H) 98 - 107 mmol/L [facility] Carbon Dioxide 21(L) 22 - 31 mmol/L [facility] Anion Gap 9 5 - 15 mmol/L [facility] Calcium 8.7 8.5 - 10.5 mg/dL [facility] [...] ORDERABLES [facility] [place] [address] * POCT Glucose (03/26/2024 11:36 AM EDT) Glucose, POC 155 65 - 199 mg/dL [facility] Comment: Supplemental ranges: <140 mg/dL before meals <180 mg/dL all other times of the day Blood 03/26/2024 11:3 6 AM EDT 03/26/2024 11:36 AM EDT Rudi Hernandez MD POINT OF CARE TEST O RDERABLES [facility] [place] [address] * POCT Glucose (03/26/2024 10:34 AM EDT) Glucose, POC 180 65 - 199 mg/dL [facility] Comment: Supplemental ranges: <140 mg/dL before meals <180 mg/dL all other times of the day Blood 03/26/2024 10:3 4 AM EDT 03/26/2024 10:34 AM EDT Rudi Hernandez MD POINT OF CARE TEST O ELKIN Performing Organization Address City/[facility]/ZIP Co de Phone Number [facility] [place] [address] * (ABNORMAL) POCT Glucose (03/26/2024 9:37 AM EDT) Glucose, POC 240(H) 65 - 199 mg/dL [facility] Comment: Supplemental ranges: <140 mg/dL before meals <180 mg/dL all other times of the day Blood 03/26/2024 9:37 AM EDT 03/26/2024 9:37 AM EDT Rudi Hernandez MD POINT OF CARE TEST O ELKIN Performing Organization Address [facility] Co de Phone Number [facility] [place] [address] * POCT Glucose (03/26/2024 7:57 AM EDT) Glucose, POC 197 65 - 199 mg/dL [facility] Comment: Supplemental ranges: <140 mg/dL before meals <180 mg/dL all other times of the day Blood 03/26/2024 7:57 AM EDT 03/26/2024 7:57 AM EDT Rudi Hernandez MD POINT OF CARE TEST O ELKIN Performing Organization Address [facility] Co de Phone Number [facility] [place] [address] * (ABNORMAL) POCT Glucose (03/26/2024 6:41 AM EDT) Glucose, POC 226(H) 65 - 199 mg/dL [facility] Comment: Supplemental ranges: <140 mg/dL before meals <180 mg/dL all other times of the day Blood 03/26/2024 6:41 AM EDT 03/26/2024 6:41 AM EDT Rudi Hernandez MD POINT OF CARE TEST O RDERABLES Performing Organization Address [facility]/ZIP Co de Phone Number [facility] [place] [address] * (ABNORMAL) Phosphorus (03/26/2024 5:19 AM EDT) Phosphorus 1.3(Critic al) 2.5 - 4.5 mg/dL [facility] Comment:called by MANDY /read b ack by Ja Elder / 03/26/24 0615 Blood 03/26/2024 5:19 AM EDT 03/26/2024 5:29 AM EDT Narrative Resulting Agency Comment Spec In Lab Rudi Hernandez MD CHEMISTRY ORDERABLES Performing Organization Address [facility]/ZIP Co de Phone Number [facility] [place] [address] * Magnesium (03/26/2024 5:19 AM EDT) Magnesium 0.76 0.69 - 1.07 mmol/L [facility] Blood 03/26/2024 5:19 AM EDT 03/26/2024 5:29 AM EDT Narrative Resulting Agency Comment Spec In Lab Rudi Hernandez MD CHEMISTRY ORDERABLES Performing Organization Address [facility] Co de Phone Number [facility] [place] [address] * (ABNORMAL) Basic Metabolic Panel (non-fasting) (03/26/2024 5:19 AM EDT) Glucose 241(H) 65 - 199 mg/dL [facility] Comment:Diabetes: >=200 mg/d L plus symptoms Blood Urea Nitrogen 5(L) 10 - 20 mg/dL [facility] Creatinine 0.70(L) 0.80 - 1.50 mg/dL [facility] Sodium 138 135 - 145 mmol/L [facility] questions. Chloride 109(H) 98 - 107 mmol/L [facility] Carbon Dioxide 20(L) 22 - 31 mmol/L [facility] Anion Gap 9 5 - 15 mmol/L [facility] Calcium 8.9 8.5 - 10.5 mg/dL [facility] [...] ORDERABLES [facility] [place] [address] * (ABNORMAL) POCT Glucose (03/26/2024 3:55 AM EDT) Glucose, POC 206(H) 65 - 199 mg/dL [facility] Comment: Supplemental ranges: <140 mg/dL before meals <180 mg/dL all other times of the day Blood 03/26/2024 3:55 AM EDT 03/26/2024 3:55 AM EDT Rudi Hernandez MD POINT OF CARE TEST O ELKIN Performing Organization Address [facility] Co de Phone Number [facility] [place] [address] * (ABNORMAL) POCT Glucose (03/26/2024 2:33 AM EDT) [facility] Glucose, POC 220(H) 65 - 199 mg/dL [facility] Comment: Supplemental ranges: <140 mg/dL before meals <180 mg/dL all other times of the day Blood 03/26/2024 2:33 AM EDT 03/26/2024 2:33 AM EDT Rudi Hernandez MD POINT OF CARE TEST O ELKIN Performing Organization Address [facility] Co de Phone Number [facility] [place] [address] * (ABNORMAL) Differential, Automated (03/26/2024 2:29 AM EDT) [facility] Neutrophil % 72.9 % [facility] Neutrophil Absolute 3.32 1.70 - 6.10 x10(3)/mc L [facility] Lymph % 17.8 % [facility] Lymphocytes Abs 0.8(L) 0.9 - 3.2 x10(3)/mc L [facility] Monocyte % 6.4 % [facility] Monocyte Abs 0.3 0.3 - 0.9 x10(3)/mc L [facility] Eos % 1.5 % [facility] Eosinophils Abs 0.1 0.0 - 0.4 x10(3)/mc L [facility] Basophil % 0.7 % [facility] Baso Absolute 0.0 0.0 - 0.1 x10(3)/mc L [facility] Immature Gran % 0.70 % [facility] Comment: Immature granulocytes(IG's)percentage and absolute count will include metamyelocytes, myelocytes, and promyelocytes. Blood smears from CBCs yielding IG's will be scanned manually for concordance. If this scan disagrees with the automated IG or if promyelocytes are noted, a manual differential will be performed. Immature Gran Absolute 0.03 0.00 - 0.04 x10(3)/[facility] Blood 03/26/2024 2:29 AM EDT 03/26/2024 2:50 AM EDT Narrative Resulting Agency Comment Spec In Lab Janette Austin MD HEMATOLOGY ORDERABLE S [facility] [place] [address] * (ABNORMAL) Hemogram (03/26/2024 2:29 AM EDT) White Blood Cell 4.6 4.0 - 9.5 x10(3)/[facility] Red Blood Cell 5.61(H) 4.58 - 5.54 x10(6)/[facility] Hemoglobin 13.6(L) 13.7 - 16.5 g/dL [facility] Hematocrit 40.7 40.5 - 48.5 % [facility] Mean Cell Volume 72.5(L) 82.9 - 93.1 fL [facility] Mean Cell Hemoglobin 24.2(L) 27.5 - 32.1 pg [facility] Mean Cell Hemoglobin Concentration 33.4 32.0 - 35.7 g/dL [facility] Platelet 220 145 - 357 x10(3)/[facility] RDW Standard Deviation 41.1 36.0 - 45.0 [facility] RDW coefficient of variation 16.1(H) 11.4 - 13.8 % [facility] Mean Platelet Volume 9.4 7.6 - 12.9 fL [facility] NRBC% auto 0.0 % [facility] NRBC Absolute 0.000 0.000 - 0.000 x10(3)/mc L [facility] Blood 03/26/2024 2:29 AM EDT 03/26/2024 2:50 AM EDT Narrative Resulting Agency Comment Spec In Lab Janette Austin MD HEMATOLOGY ORDERABLE S [facility] [place] [address] * (ABNORMAL) Phosphorus (03/26/2024 2:29 AM EDT) Phosphorus 1.0(Critic al) 2.5 - 4.5 mg/dL [facility] Comment:called by MANDY /jay zhu ack by Traci Santos / 03/26/24 0333 Blood 03/26/2024 2:29 AM EDT 03/26/2024 2:50 AM EDT Narrative Resulting Agency Comment Spec In Lab Rudi Hernandez MD CHEMISTRY ORDERABLES Performing Organization Address [facility] Co de Phone Number [facility] [place] [address] * Magnesium (03/26/2024 2:29 AM EDT) Magnesium 0.76 0.69 - 1.07 mmol/L [facility] Blood 03/26/2024 2:29 AM EDT 03/26/2024 2:50 AM EDT Narrative Resulting Agency Comment Spec In Lab Rudi Hernandez MD CHEMISTRY ORDERABLES Performing Organization Address [facility]/ZIP Co de Phone Number [facility] [place] [address] * (ABNORMAL) Basic Metabolic Panel (non-fasting) (03/26/2024 2:29 AM EDT) Glucose 281(H) 65 - 199 mg/dL [facility] Comment:Diabetes: >=200 mg/d L plus symptoms Blood Urea Nitrogen 5(L) 10 - 20 mg/dL [facility] Creatinine 0.71(L) 0.80 - 1.50 mg/dL [facility] Sodium 140 135 - 145 mmol/L [facility] questions. Chloride 110(H) 98 - 107 mmol/L [facility] Carbon Dioxide 19(L) 22 - 31 mmol/L [facility] Anion Gap 11 5 - 15 mmol/L [facility] Calcium 9.0 8.5 - 10.5 mg/dL [facility] Est Glomerular Filtration Rate 112 >=60 mL/min/1. 73 m?? [facility] ORDERABLES [facility] [place] [address] * (ABNORMAL) POCT Glucose (03/26/2024 12:05 AM EDT) Glucose, POC 321(H) 65 - 199 mg/dL [facility] Comment: Supplemental ranges: <140 mg/dL before meals <180 mg/dL all other times of the day Blood 03/26/2024 12:0 5 AM EDT 03/26/2024 12:05 AM EDT Rudi Hernandez MD POINT OF CARE TEST O RDERABLES Performing Organization Address City/[facility]/ZIP Co de Phone Number [facility] [place] [address] * (ABNORMAL) Phosphorus (03/25/2024 10:27 PM EDT) Phosphorus 1.2(Critic al) 2.5 - 4.5 mg/dL [facility] Comment:called by MANDY /jay zhu ack by Jyoti Nelson / 03/25/24 0681 Blood 03/25/2024 10:2 7 PM EDT 03/25/2024 10:33 PM EDT Narrative Resulting Agency Comment Spec In Lab Rudi Hernandez MD CHEMISTRY ORDERABLES Performing Organization Address [facility]/ZIP Co de Phone Number [facility] [place] [address] * Magnesium (03/25/2024 10:27 PM EDT) Magnesium 0.80 0.69 - 1.07 mmol/L [facility] Blood 03/25/2024 10:2 7 PM EDT 03/25/2024 10:33 PM EDT Narrative Resulting Agency Comment Spec In Lab Rudi Hernandez MD CHEMISTRY ORDERABLES Performing Organization Address City/[facility]/ZIP Co de Phone Number [facility] [place] [address] * (ABNORMAL) Basic Metabolic Panel (non-fasting) (03/25/2024 10:27 PM EDT) Glucose 264(H) 65 - 199 mg/dL [facility] Comment:Diabetes: >=200 mg/d L plus symptoms Blood Urea Nitrogen 6(L) 10 - 20 mg/dL [facility] Creatinine 0.73(L) 0.80 - 1.50 mg/dL [facility] Sodium 140 135 - 145 mmol/L [facility] questions. Chloride 109(H) 98 - 107 mmol/L [facility] Carbon Dioxide 18(L) 22 - 31 mmol/L [facility] Anion Gap 13 5 - 15 mmol/L [facility] Calcium 8.8 8.5 - 10.5 mg/dL [facility] Est Glomerular Filtration Rate 112 >=60 mL/min/1. 73 m?? [facility] [...] ORDERABLES [facility] [place] [address] * POCT Glucose (03/25/2024 8:11 PM EDT) Glucose, POC 198 65 - 199 mg/dL [facility] Comment: Supplemental ranges: <140 mg/dL before meals <180 mg/dL all other times of the day Blood 03/25/2024 8:11 PM EDT 03/25/2024 8:11 PM EDT Rudi Hernandez MD POINT OF CARE TEST O RDERABLES [facility] [place] [address] * (ABNORMAL) POCT Glucose (03/25/2024 6:56 PM EDT) Glucose, POC 212(H) 65 - 199 mg/dL [facility] Comment: Supplemental ranges: <140 mg/dL before meals <180 mg/dL all other times of the day Blood 03/25/2024 6:56 PM EDT 03/25/2024 6:56 PM EDT Rudi Hernandez MD POINT OF CARE TEST O RDERABLES [facility] [place] [address] * POCT Glucose (03/25/2024 6:07 PM EDT) Glucose, POC 175 65 - 199 mg/dL [facility] Comment: Supplemental ranges: <140 mg/dL before meals <180 mg/dL all other times of the day Blood 03/25/2024 6:07 PM EDT 03/25/2024 6:07 PM EDT Rudi Hernandez MD POINT OF CARE TEST O RDERABLES [facility] [place] [address] * POCT Glucose (03/25/2024 5:08 PM EDT) Glucose, POC 150 65 - 199 mg/dL [facility] Comment: Supplemental ranges: <140 mg/dL before meals <180 mg/dL all other times of the day Blood 03/25/2024 5:08 PM EDT 03/25/2024 5:08 PM EDT Rudi Hernandez MD POINT OF CARE TEST O ELKIN Performing Organization Address City/[facility]/ZIP Co de Phone Number [facility] [place] [address] * POCT Glucose (03/25/2024 4:04 PM EDT) Glucose, POC 176 65 - 199 mg/dL [facility] Comment: Supplemental ranges: <140 mg/dL before meals <180 mg/dL all other times of the day Blood 03/25/2024 4:04 PM EDT 03/25/2024 4:04 PM EDT Rudi Hernandez MD POINT OF CARE TEST O ARASHERAVANNESSA Performing Organization Address City/[facility]/ZIP Co de Phone Number [facility] [place] [address] * (ABNORMAL) Basic Metabolic Panel (non-fasting) (03/25/2024 3:25 PM EDT) Glucose 167 65 - 199 mg/dL [facility] Comment:Diabetes: >=200 mg/d L plus symptoms Blood Urea Nitrogen 9(L) 10 - 20 mg/dL [facility] Creatinine 0.78(L) 0.80 - 1.50 mg/dL [facility] Sodium 142 135 - 145 mmol/L [facility] Potassium 3.0(Criti johnie) 3.5 - 5.0 mmol/L [facility] Comment: called by lizet/read back by Sterling Jane ??on 03/25/24 @ 4035. Please note: ??Patients with WBC >100,000 may have falsely elevated Potassium levels. ??For accurate Potassium quantification in these patients send serum separator tube (gold top) for subsequent determinations. ??Contact the Clinical Chemistry Laboratory if there are any questions. Chloride 110(H) 98 - 107 mmol/L [facility] Carbon Dioxide 14(L) 22 - 31 mmol/L [facility] Comment:results rechecked - sfz Anion Gap 18(H) 5 - 15 mmol/L [facility] Calcium 9.3 8.5 - 10.5 mg/dL [facility] Comment:results rechecked - sfz Est Glomerular Filtration Rate 109 >=60 mL/min/1. [...] Spec In Lab Gary KIM CHEMISTRY ORDERABLES [facility] [place] [address] * POCT Glucose (03/25/2024 3:01 PM EDT) Glucose, POC 149 65 - 199 mg/dL [facility] Comment: Supplemental ranges: <140 mg/dL before meals <180 mg/dL all other times of the day Blood 03/25/2024 3:01 PM EDT 03/25/2024 3:01 PM EDT Rudi Hernandez MD POINT OF CARE TEST O RDERABLES Performing Organization Address [facility] Co de Phone Number [facility] [place] [address] * POCT Glucose (03/25/2024 2:02 PM EDT) Glucose, POC 179 65 - 199 mg/dL [facility] Comment: Supplemental ranges: <140 mg/dL before meals <180 mg/dL all other times of the day Blood 03/25/2024 2:02 PM EDT 03/25/2024 2:02 PM EDT Rudi Hernandez MD POINT OF CARE TEST O ARASHERAVANNESSA Performing Organization Address [facility] Co de Phone Number [facility] [place] [address] * POCT Glucose (03/25/2024 12:50 PM EDT) Glucose, POC 187 65 - 199 mg/dL [facility] Comment: Supplemental ranges: <140 mg/dL before meals <180 mg/dL all other times of the day Blood 03/25/2024 12:5 0 PM EDT 03/25/2024 12:50 PM EDT Rudi Hernandez MD POINT OF CARE TEST O RDERAVANNESSA Performing Organization Address [facility] Co de Phone Number [facility] [place] [address] * POCT Glucose (03/25/2024 11:18 AM EDT) Glucose, POC 146 65 - 199 mg/dL [facility] Comment: Supplemental ranges: <140 mg/dL before meals <180 mg/dL all other times of the day Blood 03/25/2024 11:1 8 AM EDT 03/25/2024 11:18 AM EDT Rudi Hernandez MD POINT OF CARE TEST O RDERABLES [facility] [place] [address] * CT Guided Drain Pancreatic/Peripancreatic (03/25/2024 11:03 [...] AM EDT) Anaerobic Culture Many Prevotella buccae(A) [facility] Organism Prevotella buccae(A) [facility] Abdominal Fluid 03/25/2024 1 0:00 AM EDT 03/25/2024 11:30 AM EDT Comment:s/p Whipple w/ po in tolerance, leukocytosis, tachycardia, hypoT - developing abscess (at pancreatic bed - 5x2 cm) Narrative Resulting Agency Comment Spec In Lab Joe Quintero DO MICROBIOLOGY - GENER AL ORDERABLES [facility] [place] [address] * (ABNORMAL) Body Fluid Culture, Aerobic (03/25/2024 10:00 AM EDT) Body Fluid Culture Many mixed Gram Negative and Positive organisms including Streptococcus milleri, anginosis group and Rare Yeast (A) [facility] Gram Stain Many Neutrophils seen Many Gram Positive Cocci seen Few Gram Negative Rods seen Few Gram Positive Rods seen (A) [facility] Organism Streptococcus milleri, anginosis group(A) [facility] Organism Yeast(A) [facility] Organism Gram Positive Cocci(A) [facility] Organism Gram Negative Rods(A) [facility] Organism Gram Positive Rods(A) [facility] Abdominal Fluid 03/25/2024 1 0:00 AM EDT 03/25/2024 11:30 AM EDT Comment:s/p Whipple w/ po in tolerance, leukocytosis, tachycardia, hypoT - developing abscess (at pancreatic bed - 5x2 cm) Narrative Resulting Agency Comment Spec In Lab Joe Quintero DO MICROBIOLOGY - GENER AL ORDERABLES Performing Organization Address [facility] Co de Phone Number [facility] [place] [address] * Amylase Level Body Fluid Pancreatic Cyst (03/25/2024 10:00 AM EDT) Amylase, Fluid >7,500 unit/L [facility] Comment: Reference intervals are unavailable for this test in body fluids. Comparison of this result with the concentration in blood, serum, or plasma is recommended. This test has not been cleared by the [place] FDA. Performance characteristics of this test for the analysis of body fluids were determined by [facility] in accordance with CLIA requirements. This laboratory is qualified under CLIA to perform high-complexity testing. Amylase BF Type Pancreatic cyst [facility] Pancreatic Cyst 03/25/2024 1 0:00 AM EDT 03/25/2024 11:13 AM EDT Narrative Resulting Agency Comment Spec In Lab Joe Quintero DO BODY FLUIDS AND STOO LS ORDERABLES Performing Organization Address [facility]/ZIP Co de Phone Number [facility] [place] [address] * POCT Glucose (03/25/2024 9:46 AM EDT) Glucose, POC 146 65 - 199 mg/dL [facility] Comment: Supplemental ranges: <140 mg/dL before meals <180 mg/dL all other times of the day Blood 03/25/2024 9:46 AM EDT 03/25/2024 9:46 AM EDT Rudi Hernandez MD POINT OF CARE TEST O RDERABLES Performing Organization Address City/[facility] Co de Phone Number [facility] [place] [address] * POCT Glucose (03/25/2024 8:00 AM EDT) Glucose, POC 171 65 - 199 mg/dL [facility] Comment: Supplemental ranges: <140 mg/dL before meals <180 mg/dL all other times of the day Blood 03/25/2024 8:00 AM EDT 03/25/2024 8:00 AM EDT Rudi Hernandez MD POINT OF CARE TEST O RDERABLES Performing Organization Address [facility] Co de Phone Number [facility] [place] [address] * Lactate, whole blood, send to lab ([facility]) (03/25/2024 6:00 AM EDT) [facility] Lactate WB 1.2 0.5 - 2.2 mmol/L [facility] Blood 03/25/2024 6:00 AM EDT 03/25/2024 6:11 AM EDT Narrative Resulting Agency Comment Spec In Lab Rudi Hernandez MD CHEMISTRY ORDERABLES Performing Organization Address [facility] Co de Phone Number [facility] [place] [address] * (ABNORMAL) Beta Hydroxybutyrate (03/25/2024 4:35 AM EDT) Beta-hydroxybuturat e 6.30(H) 0.00 - 0.30 mmol/L [facility] Comment: This test has not been cleared by the [place] FDA. Performance characteristics of this test were determined by [facility] in accordance with CLIA requirements. This laboratory is qualified under CLIA to perform high-complexity testing. Blood Venous Draw / Unknown 03/25/2024 4:35 AM EDT 03/25/2024 4:42 AM EDT Narrative Resulting Agency Comment Spec In Lab Rafi Grimaldo MD CHEMISTRY ORDERABLE S [facility] [place] [address] * (ABNORMAL) Differential, Automated (03/25/2024 4:35 AM EDT) Neutrophil % 79.4 % [facility] Neutrophil Absolute 7.16(H) 1.70 - 6.10 x10(3)/mc L [facility] Lymph % 10.8 % [facility] Lymphocytes Abs 1.0 0.9 - 3.2 x10(3)/ L [facility] Monocyte % 8.2 % [facility] Monocyte Abs 0.7 0.3 - 0.9 x10(3)/ L [facility] Eos % 0.4 % [facility] Eosinophils Abs 0.0 0.0 - 0.4 x10(3)/ L [facility] Basophil % 0.6 % [facility] Baso Absolute 0.0 0.0 - 0.1 x10(3)/mc L [facility] Immature Gran % 0.60 % [facility] Comment: Immature granulocytes(IG's)percentage and absolute count will include metamyelocytes, myelocytes, and promyelocytes. Blood smears from CBCs yielding IG's will be scanned manually for concordance. If this scan disagrees with the automated IG or if promyelocytes are noted, a manual differential will be performed. Immature Gran Absolute 0.05(H) 0.00 - 0.04 x10(3)/mc L [facility] Blood 03/25/2024 4:35 AM EDT 03/25/2024 4:41 AM EDT Narrative Resulting Agency Comment Spec In Lab Janette Austin MD HEMATOLOGY ORDERABLE S Performing Organization Address City/State/[facility] Co de Phone Number [facility] [place] [address] * (ABNORMAL) Hemogram (03/25/2024 4:35 AM EDT) White Blood Cell 9.0 4.0 - 9.5 x10(3)/mc L [facility] Red Blood Cell 5.31 4.58 - 5.54 x10(6)/mc L [facility] Hemoglobin 12.7(L) 13.7 - 16.5 g/dL [facility] Hematocrit 39.1(L) 40.5 - 48.5 % [facility] Mean Cell Volume 73.6(L) 82.9 - 93.1 fL [facility] Mean Cell Hemoglobin 23.9(L) 27.5 - 32.1 pg [facility] Mean Cell Hemoglobin Concentration 32.5 32.0 - 35.7 g/dL [facility] Platelet 284 145 - 357 x10(3)/mc L [facility] RDW Standard Deviation 42.4 36.0 - 45.0 fL [facility] RDW coefficient of variation 16.1(H) 11.4 - 13.8 % [facility] Mean Platelet Volume 9.7 7.6 - 12.9 fL [facility] NRBC% auto 0.0 % [facility] NRBC Absolute 0.000 0.000 - 0.000 x10(3)/ L [facility] Blood 03/25/2024 4:35 AM EDT 03/25/2024 4:41 AM EDT Narrative Resulting Agency Comment Spec In Lab Janette Austin MD HEMATOLOGY ORDERABLE S [facility] [place] [address] * (ABNORMAL) Basic Metabolic Panel (non-fasting) (03/25/2024 4:35 AM EDT) Glucose 148 65 - 199 mg/dL [facility] Comment:Diabetes: >=200 mg/d L plus symptoms Blood Urea Nitrogen 9(L) 10 - 20 mg/dL [facility] Creatinine 0.62(L) 0.80 - 1.50 mg/dL [facility] Sodium 141 135 - 145 mmol/L [facility] questions. Chloride 112(H) 98 - 107 mmol/L [facility] Carbon Dioxide 8(Critica l) 22 - 31 mmol/L [facility] Comment:Called by: LOKI, Read back by: JYOTI NELSON, Date/Time:03/25/24 05:37. Anion Gap 21(H) 5 - 15 mmol/L [facility] Calcium 7.4(L) 8.5 - 10.5 mg/dL [facility] Comment:result rechecked-KS Est Glomerular Filtration Rate 117 >=60 mL/min/1. 73 m?? [facility] Hernandez MD CHEMISTRY ORDERABLES Performing Organization Address [facility]/ZIP Co de Phone Number [facility] [place] [address] * POCT Glucose (03/25/2024 4:31 AM EDT) Glucose, POC 143 65 - 199 mg/dL [facility] Comment: Supplemental ranges: <140 mg/dL before meals <180 mg/dL all other times of the day Blood 03/25/2024 4:31 AM EDT 03/25/2024 4:31 AM EDT Rudi Hernandez MD POINT OF CARE TEST O RDERABLES Performing Organization Address [facility] Co de Phone Number [facility] [place] [address] * POCT Glucose (03/24/2024 11:56 PM EDT) Glucose, POC 136 65 - 199 mg/dL [facility] Comment: Supplemental ranges: <140 mg/dL before meals <180 mg/dL all other times of the day Blood 03/24/2024 11:5 6 PM EDT 03/24/2024 11:56 PM EDT Rudi Hernandez MD POINT OF CARE TEST O RDERABLES Performing Organization Address [facility] Co de Phone Number [facility] [place] [address] * (ABNORMAL) Differential, Automated (03/24/2024 10:21 PM EDT) Neutrophil % 78.0 % [facility] Neutrophil Absolute 7.27(H) 1.70 - 6.10 x10(3)/mc L [facility] Lymph % 11.4 % [facility] Lymphocytes Abs 1.1 0.9 - 3.2 x10(3)/[facility] Monocyte % 8.9 % [facility] Monocyte Abs 0.8 0.3 - 0.9 x10(3)/[facility] Eos % 0.6 % [facility] Eosinophils Abs 0.1 0.0 - 0.4 x10(3)/[facility] Basophil % 0.5 % [facility] Baso Absolute 0.0 0.0 - 0.1 x10(3)/[facility] Immature Gran % 0.60 % [facility] Comment: Immature granulocytes(IG's)percentage and absolute count will include metamyelocytes, myelocytes, and promyelocytes. Blood smears from CBCs yielding IG's will be scanned manually for concordance. If this scan disagrees with the automated IG or if promyelocytes are noted, a manual differential will be performed. Immature Gran Absolute 0.06(H) 0.00 - 0.04 x10(3)/[facility] Blood 03/24/2024 10:2 1 PM EDT 03/24/2024 10:43 PM EDT Narrative Resulting Agency Comment Spec In Lab Janette Austin MD HEMATOLOGY ORDERABLE S Performing Organization Address City/State/[facility] Co de Phone Number [facility] [place] [address] * (ABNORMAL) Hemogram (03/24/2024 10:21 PM EDT) White Blood Cell 9.3 4.0 - 9.5 x10(3)/[facility] Red Blood Cell 5.86(H) 4.58 - 5.54 x10(6)/[facility] Hemoglobin 14.0 13.7 - 16.5 g/dL [facility] Hematocrit 44.0 40.5 - 48.5 % [facility] Mean Cell Volume 75.1(L) 82.9 - 93.1 fL [facility] Mean Cell Hemoglobin 23.9(L) 27.5 - 32.1 pg [facility] Mean Cell Hemoglobin Concentration 31.8(L) 32.0 - 35.7 g/dL [facility] Platelet 309 145 - 357 x10(3)/mc L [facility] RDW Standard Deviation 43.0 36.0 - 45.0 fL [facility] RDW coefficient of variation 16.2(H) 11.4 - 13.8 % [facility] Mean Platelet Volume 9.8 7.6 - 12.9 fL [facility] NRBC% auto 0.0 % [facility] NRBC Absolute 0.000 0.000 - 0.000 x10(3)/mc L [facility] Blood 03/24/2024 10:2 1 PM EDT 03/24/2024 10:43 PM EDT Narrative Resulting Agency Comment Spec In Lab Janette Austin MD HEMATOLOGY ORDERABLE S [facility] [place] [address] * (ABNORMAL) Basic Metabolic Panel (non-fasting) (03/24/2024 10:21 PM EDT) Glucose 143 65 - 199 mg/dL [facility] questions. Chloride 105 98 - 107 mmol/L [facility] Carbon Dioxide 11(L) 22 - 31 mmol/L [facility] Anion Gap 21(H) 5 - 15 mmol/L [facility] Hernandez MD CHEMISTRY ORDERABLES Performing Organization Address City/[facility]/ZIP Co de Phone Number [facility] [place] [address] * (ABNORMAL) Phosphorus (03/24/2024 10:21 PM EDT) Phosphorus 2.4(L) 2.5 - 4.5 mg/dL [facility] Blood 03/24/2024 10:2 1 PM EDT 03/24/2024 10:43 PM EDT Narrative Resulting Agency Comment Spec In Lab Rudi Hernandez MD CHEMISTRY ORDERABLES [facility] [place] [address] * Magnesium (03/24/2024 10:21 PM EDT) Magnesium 0.83 0.69 - 1.07 mmol/L [facility] Blood 03/24/2024 10:2 1 PM EDT 03/24/2024 10:43 PM EDT Narrative Resulting Agency Comment Spec In Lab Rudi Hernandez MD CHEMISTRY ORDERABLES Performing Organization Address [facility] Co de Phone Number [facility] [place] [address] * POCT Glucose (03/24/2024 9:17 PM EDT) Pathologist [facility] Glucose, POC 140 65 - 199 mg/dL [facility] Comment: Supplemental ranges: <140 mg/dL before meals <180 mg/dL all other times of the day Blood 03/24/2024 9:17 PM EDT 03/24/2024 9:17 PM EDT Rudi Hernandez MD POINT OF CARE TEST O RDERABLES Performing Organization Address [facility] Co de Phone Number [facility] [place] [address] * Request For 2nd Read CT Abdomen & Pelvis (03/24/2024 7:48 PM EDT) WORKSTATION ID [id number] [facility] Anatomical Region Laterality Modality Abdomen, Pelvis SO [...] have questions please contact the health home care music therapist that requested your imaging first. ? Narrative 03/25/2024 9:19 AM EDT EXAMINATION: REQUEST FOR 2ND READ CT ABDOMEN AND PELVIS CLINICAL HISTORY: s/p Whipple w/ po intolerance, leukocytosis, tachycardia, hypoT - c/f acute findings, ?fluid collection or abscess; Sending Institution [facility]; Date of exam 20240324; I believe a [...] c/f acute findings, ?fluid collection or abscess; [facility]; Date of exam 20240324; I believe a [...] [place] hepatis measures 4 x 3.6 cm ([id number] image 28). GALLBLADDER/BILIARY TREE: Status post cholecystectomy. [...] who have questions please contactthe health home care music therapist that requested your imaging first. Rudi Hernandez MD IM OUTSIDE [facility] ORDERABLES documented in this encounter Visit Diagnoses [...] abscess Duodenal adenocarcinoma Malignant neoplasm of duodenum Duodenal [...] HOURS SCHEDULED, 3 doses, First dose on Fri03/25/24 at 1700, Last dose on Fri03/26/24 at [...] Oral, ONCE PRN, 1 dose, Starting on Fri03/28/24 at 2226, Until Fri03/28/24 at 2230, Pain, Headaches, Fever, Maximum dose [...] Continuous (TPN), 2 doses, First dose on Fri03/27/24 at 1800, Last dose on Fri03/28/24 at [...] DAILY, First dose (after last modification) on 03/29/24 at 0900, Until Discontinued, Routine Given 04/01/2024 [...] Fri03/25/24 at 0941, Until Fri03/25/24 at 1115, Pain, per unit protocol, For [...] most appropriate choice: ID Approval by Maxi Del Real 03/30/2024 6:25 PM EDT 400 mg 100 [...] dose, Starting on Fri03/25/24 at 1000, Until Aline 04/01/24 at 1724, for discomfort with PIV insertion, Routine ddplag-tidhuxcj-yfrhxsf DR (Zenpep 20) 20,000-63,000- 84,000 unit per [...] at 0941, Until Aline 03/25/24 at 1115, Sedation, For use in Interventional [...] EVERY HOUR, 6 doses, First dose on Fri03/27/24 at 2200, Last dose on Fri03/28/24 at [...] 2 HOURS, 2 doses, First dose on Fri03/29/24 at 0630, Last dose on Fri03/29/24 at [...] 60 mEq, Oral, ONCE, 1 dose, On [facility] 03/27/24 at 2145, May dissolve tablet if [...] 3 g, Oral, ONCE, 1 dose, On Aline 03/25/24 at 0030, Take with full glass of [...] Routine 0510 (Given - Provider: Anais Santos RN)1500 (Given - Provider: Micha Butler RN)2213 (Given - Provider: Bernard Ritchie RN) 0642 (Given - Provider: Bernard Ritchie RN)1452 (Given - Provider: Soco Mohamud RN)2136 (Given - Provider: Bernard Ritchie RN) 0639 (Given - Provider: Bernard Ritchie RN)1308 (Given - Provider: Li Lewis, GRETCHEN) insulin glargine-ygfn (Semglee) (100 unit/mL) subcutaneous injection vial 10 Units 10 Units, Subcutaneous, DAILY, First dose on Fri03/26/24 at 1315, Until Discontinued, Routine 0840 (Given - Provider: Micha Butler RN) 0824 (Given - Provider: Soco Mohamud, GRETCHEN) 0818 (Given - Provider: Li Lewis, GRETCHEN) insulin lispro (HumaLOG;Admelog) (100 unit/mL) subcutaneous injection [...] - Comment: BG 156)1307 (Given - Provider: iL Lewis RN) dwunuh-sbhqdtds-dlqcjnc DR (Zenpep 20) 20,000-63,000- 84,000 unit per capsule 2 capsule 2 capsule, Oral, 3 TIMES DAILY WITH MEALS, First dose on Fri03/30/24 at 1400, Until Discontinued, Routine 1501 (Given - Provider: Micha Butler RN)1700 (Not Given - Provider: Micha Butler RN - Reason: Patient/family refused) 0837 (Given - Provider: Soco Mohamud RN)1237 (Given - Provider: Soco Mohamud, GRETCHEN)1714 (Given - Provider: Scoo Mohamud, RN) 0818 (Given - Provider: Li Lewis [...] Butler RN) 0823 (Given - Provider: Soco Mohamud, GRETCHEN) 0818 (Given - Provider: Li Lewis RN) polyethylene glycoL (Miralax) packet 17 g 17 g, Oral, DAILY, First dose on Aline 03/25/24 at 0900, Until Discontinued, Hold for loose stool. , Routine 0900 (Not Given - Provider: Micha Butler RN - Reason: NPO) 0822 (Given - Provider: Soco Mohamud RN) 0818 [...] Patient/family refused) 0823 (Given - Provider: Soco Mohamud RN)2100 (Not Given - Provider: Bernard Ritchie [...] Ritchie RN) 0821 (Given - Provider: Soco Mohamud RN)2137 (Given - Provider: Bernard Ritchie RN) 0838 (Given - Provider: Li Lewis RN) sodium chloride 0.9 % (flush) (BD PosiFlush Normal Saline 0.9) flush 5 mL 5 mL, Intravenous, 2 TIMES DAILY, First dose on Fri03/25/24 at 1100, Until Discontinued, Routine 0841 (Given - Provider: Micha Butler RN)2214 (Given - Provider: Bernard Ritchie RN) 0821 (Given - Provider: Soco Mohamud RN)2136 (Given - Provider: Bernard Ritchie RN) 0838 [...] Until Aline 04/01/24 at 1724, nueropathy, Routine glucagon (Glucagen) (1 [...] dose, Starting on Fri03/25/24 at 1000, Until Aline 04/01/24 at 1724, for discomfort [...] PRN, Starting on Fri03/24/24 at 2143, Until Aline 04/01/24 at 1724, flush, Flush [...] ineffective. documented in this encounter Care Teams Welding Supervisor Relationship Specialty Start Date End Date Olga Hoffman APRN [address] [place] [address] PCP - General Family Medicine 10/30/22 documented as of this encounter
--- OUTSIDE RECORDS SUMMARY | 2024-05-27 17:59 | XMS_ITS | Encounter Summary ---
Author Organization [facility] [place] [address] Care Team Providers Care Hotel Controller Name Role Phone DaltonAbigailOlgaevy Bell APRN Primary Care Provider [phone] Encounter Details Date Type Department Care Team (Late st Contact Info) Description 03/24/2024 5:30 PM EDT Ancillary Procedure [place] [address] Rudi Hernandez MD [facility] [place] [address] Social History Tobacco Use Types Packs/Day Years Used Date Smoking Tobacco: Never Smokeless Tobacco: Never Alcohol Use Standard Drinks/Week Comments Not Currently 0 (1 standard drink = 0.6 oz pur e alcohol) [facility] Utilities Answer Date Recorded In the past 12 months has [employer], gas, oil, or water [employer] threatened to shut off services in your [...] AM EDT Office Visit Hematology/Oncology at [address] [phone] Rodriguez Fowler MD [facility] [place] [address] Sherry Cedillo APRN [address] [place] [address] DR HEMATOLOGY [place] [address] 05/28/2024 8:30 AM EDT Infusion Hematology Oncology at [address] [phone] 05/28/2024 9:30 AM EDT Clinical Support Hematology/Oncology at [address] [phone] Leah Rose, RD [facility] DR HEMATOLOGY [place] [address] documented as of this encounter Procedures Procedure Name Priority Date/Time Associated Diagnosis Comments FILM LIBRARY STORAGE ONLY CT CHEST ABDOMEN PELVIS Routine 03/24/2024 5:27 PM EDT documented in this encounter Results * Film Library- Storage Only CT Chest Abdomen Pelvis (03/24/2024 5:27 PM EDT) Narrative [facility] - 03/24/2024 5:27 PM EDT This exam is auto-finalizing. It's purpose is for storage only. Rudi Hernandez MD IMG FILM LIBRARY ORD ERABLES [place], [place] documented in this encounter Visit Diagnoses Not on filedocumented in this encounter Care Teams Hotel Controller Relationship Specialty Start Date End Date Olga Hoffman APRN [address] [place] [address] PCP - General Family Medicine 10/30/22 documented as of this encounter
--- OUTSIDE RECORDS SUMMARY | 2024-05-27 17:59 | XMS_ITS | Encounter Summary ---
Author Organization [facility] [place] [address] Care Team Providers Care Digester Cook Name Role Phone DaltonAbigailOlgaevy Bell APRN Primary Care Provider +1 -[phone] Encounter Details Date Type Department Care Team (Late st Contact Info) Description 03/24/2024 7:50 PM EDT Ancillary Procedure [place] [address] Rudi Hernandez MD [facility] [place] [address] Social History Tobacco Use Types Packs/Day Years Used Date Smoking Tobacco: Never Smokeless Tobacco: Never Alcohol Use Standard Drinks/Week Comments Not Currently 0 (1 standard drink = 0.6 oz pur e alcohol) [facility] Utilities Answer Date Recorded In the past 12 months has [employer], gas, oil, or water [employer] threatened to shut off services in your [...] 8:00 AM EDT Office Visit Hematology/Oncology at [address] [phone] Rodriguez Fowler MD [facility] [place] [address] Sherry Cedillo APRN [address] [place] [address] DR [place] [address] 05/28/2024 8:30 AM EDT Infusion Hematology Oncology at [address] [phone] 05/28/2024 9:30 AM EDT Clinical Support Hematology/Oncology at [address] [phone] Leah Rose, RD [facility] DR HEMATOLOGY [place] [address] documented as of this encounter Procedures Procedure Name Priority Date/Time Associated Diagnosis Comments REQUEST FOR 2ND READ CT ABDOMEN AND PELVIS Routine 03/24/2024 7:48 PM EDT documented in this encounter Results * Request For 2nd Read CT Abdomen & Pelvis (03/24/2024 7:48 PM EDT) Pathologist [employer] WORKSTATION ID [id number] RAD Anatomical Region Laterality Modality Abdomen, Pelvis [...] who have questions please contact the health laboratory animal care veterinarian that requested your imaging first. ? Electronically signed by: Ilana Mirza MD, [facility] ([phone]), at 03/25/2024 9:19 AM Narrative 03/25/2024 9:19 AM EDT EXAMINATION: REQUEST FOR 2ND READ CT ABDOMEN AND PELVIS CLINICAL HISTORY: s/p Whipple w/ po intolerance, leukocytosis, tachycardia, hypoT - c/f acute findings, ?fluid collection or abscess; Sending Institution [facility]; Date of exam [id number]; I believe [...] c/f acute findings, ?fluid collection or abscess; [facility]; Date of exam [id number]; I believe [...] [place] hepatis measures 4 x 3.6 cm ([id number] image 28). GALLBLADDER/BILIARY TREE: Status post cholecystectomy. [...] patients who have questions please contactthe health laboratory animal care veterinarian that requested your imaging first. Rudi Hernandez MD IMG OUTSIDE INTERPRE TATION ORDERABLES documented in this encounter Visit Diagnoses Not on filedocumented in this encounter Care Teams Digester Cook Relationship Specialty Start Date End Date Olga Hoffman, YOCASTA [address] [place] [address] PCP - General Family Medicine 10/30/22 documented as of this encounter
--- OUTSIDE RECORDS SUMMARY | 2024-05-27 17:59 | XMS_ITS | Encounter Summary ---
Author Organization [facility] [place] [address] Care Team Providers Care Scrap Baller Name Role Phone Olga Hoffman APRN Primary Care Provider +1 -[phone] Encounter Details Date Type Department Care Team (Late st Contact Info) Description 03/24/2024 [place] [phone] [facility] [place] [address] Social History Tobacco Use Types Packs/Day Years Used Date Smoking Tobacco: Never Smokeless Tobacco: Never Alcohol Use Standard Drinks/Week Comments Not Currently 0 (1 standard drink = 0.6 oz pur e alcohol) [facility] Utilities Answer Date Recorded In the past 12 months has [facility] [employer], gas, oil, or water [employer] threatened to shut off services in your [...] time in the past 12 m [facility], were you homeless or living in [...] procedure for duodenal carcinoma. Patient presented to [facility] with sepsis and is pending transfer to [facility] for further treatment and medical optimization. Remainder [...] Prior to Visit Medication Sig Dispense Refill [id number] (Zenpep) 40,000-126,000- 168,[address] capsule Take [...] covered by insurance 15 mL 3 Insulin [place], Disposable, (BD Ultra-Fine Micro Pen Needle) 32 gauge x 1/4 Needle 1 each by [facility].(Non-Drug; Combo Route) route 2 times daily. 300 [...] Biopsy Liver Percutaneous 01/07/2023 Juan Wright MD [facility] INTERVENTIONL RAD PRO PART REMV PANC, PROX+REMV DUOD+ANAST N/A 03/01/2024 @CHAKA PROCEDURE (WRVU 52.84) performed by Rudi Hernandez MD at [facility] MAIN OR PRO TRANSFER SKIN PEDICLE FLAP N/A 03/01/2024 TRANSFER, INTERMEDIATE, ANY PEDICLE FLAP, ANY LOCATION (WRVU 4.77) performed by Rudi Hernandez MD at [facility] MAIN OR Social history and habits: Social [...] 8:00 AM EDT Office Visit Hematology/Oncology at [address] [phone] Rodriguez Fowler MD [facility] [place] [address] Sherry Cedillo APRN [address] [place] [address] DR HEMATOLOGY AND ONCOLOGY [place], [place] [id number] 05/28/2024 8:30 AM EDT Infusion Hematology Oncology at [address] [phone] 05/28/2024 9:30 AM EDT Clinical Support Hematology/Oncology at [address] [phone] Leah Rose, RD [facility] DR [place] [address] documented as of this encounter Visit Diagnoses Not on filedocumented in this encounter Care Teams Scrap Baller Relationship Specialty Start Date End Date Olga Hoffman APRN [address] [place] [address] PCP - General Family Medicine 10/30/22 documented as of this encounter
--- OUTSIDE RECORDS SUMMARY | 2024-05-27 18:00 | XMS_ITS | Encounter Summary ---
Author Organization [facility] [place] [address] Care Team Providers Care Digital Forensics Examiner Name Role Phone Olga Hoffman APRN Primary Care Provider +1 [phone] Encounter Details Date Type Department Care Team (Late st Contact Info) Description 03/10/2024 Telephone [place] [phone] Rudi Hernandez MD [facility] [place] [address] Social History Tobacco Use Types Packs/Day Years Used Date Smoking Tobacco: Never Smokeless Tobacco: Never Alcohol Use Standard Drinks/Week Comments Not Currently 0 (1 standard drink = 0.6 oz pur e alcohol) [facility] Utilities Answer Date Recorded In the past 12 months has [employer], gas, oil, or water [employer] threatened to shut off services in [...] AM EDT Office Visit Hematology/Oncology at [address] [phone] Rodriguez Fowler MD [facility] [place] [place] [address] Sherry Cedillo APRN [address] [place] [address] DR HEMATOLOGY AND ONCOLOGY [place], [place] [id number] 05/28/2024 8:30 AM EDT Infusion Hematology Oncology at [address] [phone] 05/28/2024 9:30 AM EDT Clinical Support Hematology/Oncology at [address] [phone] [facility] DR HEMATOLOGY [place] [address] documented as of this encounter Visit Diagnoses Not on filedocumented in this encounter Care Teams Digital Forensics Examiner Relationship Specialty Start Date End Date Olga Hoffman APRN [address] [place] [address] PCP - General Family Medicine 10/30/22 documented as of this encounter
--- OUTSIDE RECORDS SUMMARY | 2024-05-27 18:00 | XMS_ITS | Encounter Summary ---
Author Organization [facility] Brain [facility] [place] [address] Care Team Providers Care Hand Salter Name Role Phone Olga Hoffman APRN Primary Care Provider +1 [phone] Reason for Referral * Consultation (Routine) - Closed Specialty Diagnoses / Procedures Referred By Contnina t Referred To Contact Hematology and Oncology Diagnoses Duodenal adenocarcinoma Carine Hernandez MD [facility] [place] [address] [facility] Hem Onc [address] [place] [address] Referral ID Status Reason Start Date Expiration Date V isits Requested Visits Authorized [id number] Closed Consult, Test & Treat 03/11/2024 03/11/2025 1 1 Reason for Visit * Reason Comments Follow-up Encounter Details Date Type Department Care Team (Latest Contact Info) Description 03/17/2024 10:00 AM EDT Office [place] [address] Carine Hernandez MD [facility] [place] [address] Duodenal adenocarcinoma Social History Tobacco Use Types Packs/Day Years Used Date Smoking Tobacco: Never Smokeless Tobacco: Never Alcohol Use Standard Drinks/Week Comments Not Currently 0 (1 standard drink = 0.6 oz pur e alcohol) [facility] Utilities Answer Date Recorded In [...] Nick is now 2 weeks postop from [place]. He has been home for over a [...] 10:00 AM EDTAddended by: CARINE HERNANDEZ on: 03/20/2024 06:58 AM Modules accepted: Orders documented in this encounter Plan of Treatment Upcoming Encounters Date Type Department Care Team (Late st Contact Info) Description 05/28/2024 8:00 AM EDT Office Visit Hematology/Oncology at [address] [phone] Rodriguez Fowler MD [facility] [place] [address] Sherry Cedillo APRN [address] [place] [address] DR HEMATOLOGY AND ONCOLOGY [place], [place] [id number] 05/28/2024 8:30 AM EDT Infusion Hematology Oncology at [address] [phone] 05/28/2024 9:30 AM EDT Clinical Support Hematology/Oncology at [address] [phone] Leah Rose, RD [facility] DR HEMATOLOGY [place] [address] Scheduled Referrals Name Type Priority Associated Diagnoses Orde r Schedule Referral to Hematology and Oncology Outpatient Referral Routine Duodenal adenocarcinoma Ordered: 03/11/2024 documented as of this encounter Visit Diagnoses Diagnosis 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
--- OUTSIDE RECORDS SUMMARY | 2024-05-27 18:00 | XMS_ITS | Encounter Summary ---
Author Organization [facility] Address [facility] [place] [address] Care Team Providers Care Account Classification Clerk Name Role Phone Olga Hoffman APRN Primary Care Provider +1 [phone] Encounter Details Date Type Department Care Team [...] any time in the past 12 m [facility], were you homeless or living in a alf (including now)? No 03/02/2024 DH IPV Inpatient [...] AM EDT Office Visit Hematology/Oncology at [address] [phone] Rodriguez Fowler MD [facility] [place] [address] Sherry Cedillo APRN [address] [place] [address] DR HEMATOLOGY AND ONCOLOGY [place], [place] [address] 05/28/2024 8:30 AM EDT Infusion Hematology Oncology at [address] [phone] 05/28/2024 9:30 AM EDT Clinical Support Hematology/Oncology at [address] [phone] [facility] DR [place] [address] documented as of this encounter Visit Diagnoses Not on filedocumented in this encounter Care Teams Account Classification Clerk Relationship Specialty Start Date End Date Olga Hoffman APRN [address] [place] [address] PCP - General Family Medicine 10/30/22 documented as of this encounter
--- OUTSIDE RECORDS SUMMARY | 2024-05-27 18:00 | XMS_ITS | Encounter Summary ---
Author Organization [facility] Address [facility] [place] [address] Care Team Providers Care Commodity Management Specialist Name Role Phone Olga Hoffman APRN Primary Care Provider +1 [phone] Encounter Details Date Type Department Care Team (Late st Contact Info) Description 03/17/2024 10:30 AM EDT Clinical Support [place] [address] Donna Dewey, RD [facility] [place] [address] Duodenal cancer Social History Tobacco Use Types Packs/Day Years Used Date Smoking Tobacco: Never Smokeless Tobacco: Never Alcohol Use Standard Drinks/Week Comments Not Currently 0 (1 standard drink = 0.6 oz pur e alcohol) [facility] Utilities Answer Date Recorded In the past 12 months has [employer], oil, or water [employer] threatened to shut off services in your [...] in a nursing home (including now)? No 03/02/2024 IPV Inpatient Questions [...] diagnosed duodenal adenocarcinoma who ultimately presented to [facility] on 03/01/24 for Whipple procedure. Operations/Major Procedures: [...] powder and making shakes for him. Using [place] and coconut milk Yesterday-- Am: Coffee with [...] AM EDT Office Visit Hematology/Oncology at [address] [phone] Rodriguez Fowler MD [facility] [place] [address] Sherry Cedillo WATER PLANT PUMP OPERATOR [address] [place] [address] DR HEMATOLOGY AND ONCOLOGY [place], [place] [id number] 05/28/2024 8:30 AM EDT Infusion Hematology Oncology at [address] [phone] 05/28/2024 9:30 AM EDT Clinical Support Hematology/Oncology at [address] [phone] [facility] DR HEMATOLOGY [place] [address] documented as of this encounter Visit Diagnoses Diagnosis Duodenal cancer 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
--- OUTSIDE RECORDS SUMMARY | 2024-05-27 18:00 | XMS_ITS | Encounter Summary ---
Author Organization [facility] [place] [address] Care Team Providers Care Volunteer Services Supervisor Name Role Phone Olga Hoffman APRN Primary Care Provider +1 -[phone] Encounter Details Date Type Department Care Team (Late st Contact Info) Description 03/19/2024 Telephone [place] [address] Jaki Pantoja RN Social History Tobacco Use Types Packs/Day Years Used Date Smoking Tobacco: Never Smokeless Tobacco: Never Alcohol Use Standard Drinks/Week Comments Not Currently 0 (1 standard drink = 0.6 oz pur e alcohol) [facility] Utilities Answer Date Recorded In the [...] living in a halfway (including now)? No 03/02/2024 DH IPV Inpatient [...] sent a picture of the incision through [facility]. I reassured her that the incision [...] AM EDT Office Visit Hematology/Oncology at [address] [phone] Rodriguez Fowler MD [facility] [place] [address] Sherry Cedillo APRN [address] [place] [address] [place] [address] 05/28/2024 8:30 AM EDT Infusion Hematology Oncology at [address] [phone] 05/28/2024 9:30 AM EDT Clinical Support Hematology/Oncology at [address] [phone] [facility] DR [place] [address] documented as of this encounter Visit Diagnoses Not on filedocumented in this encounter Care Teams Volunteer Services Supervisor Relationship Specialty Start Date End Date Olga Hoffman APRN [address] [place] [address] PCP - General Family Medicine 10/30/22 documented as of this encounter
--- OUTSIDE RECORDS SUMMARY | 2024-05-27 18:00 | XMS_ITS | Encounter Summary ---
Author Organization [facility] [place] [address] Care Team Providers Care Systems Design Engineer Name Role Phone Olga Hoffman APRN Primary Care Provider +1 -[phone] Encounter Details Date Type Department Care Team (Latest Contact Info) Description 03/20/2024 Multidisciplinary Ca re Committee [place] [phone] Rudi Hernandez MD [facility] [place] [address] Social History Tobacco Use Types Packs/Day Years Used Date Smoking Tobacco: Never Smokeless Tobacco: Never Alcohol Use Standard Drinks/Week Comments Not Currently 0 (1 standard drink = 0.6 oz pur e alcohol) [facility] Utilities Answer Date Recorded In the past 12 months has [facility] [employer], gas, oil, or water [employer] threatened to shut off services in your [...] time in the past 12 m [facility], were you homeless or living in [...] AM EDT Office Visit Hematology/Oncology at [address] [phone] Rodriguez Fowler MD [facility] [place] [address] Sherry Cedillo APRN [address] [place] [address] HEMATOLOGY AND ONCOLOGY [place], [place] [address] 05/28/2024 8:30 AM EDT Infusion Hematology Oncology at [address] [phone] 05/28/2024 9:30 AM EDT Clinical Support Hematology/Oncology at [facility] [address] [place] [address] Leah Rose, RD [facility] H[place]ATOLOGY [place] [address] documented as of this encounter Visit Diagnoses Not on filedocumented in this encounter Care Teams Systems Design Engineer Relationship Specialty Start Date End Date Olga Hoffman APRN [address] [place] [address] PCP - General Family Medicine 10/30/22 documented as of this encounter
--- OUTSIDE RECORDS SUMMARY | 2024-05-27 18:00 | XMS_ITS | Encounter Summary ---
Author Organization [facility] [place] [address] Care Team Providers Care Speeder Machine Operator Name Role Phone Olga Hoffman APRN Primary Care Provider +1 -[phone] Encounter Details Date Type Department Care Team (Late st Contact Info) Description 03/10/2024 Orders [place] [address] Rudi Hernandez MD [facility] [place] [address] Duodenal cancer Social History Tobacco Use Types Packs/Day Years Used Date Smoking Tobacco: Never Smokeless Tobacco: Never Alcohol Use Standard Drinks/Week Comments Not Currently 0 (1 standard drink = 0.6 oz pur e alcohol) [facility] Utilities Answer Date Recorded In the past 12 months has [facility] [employer], gas, oil, or water [employer] threatened to shut off services in your [...] living in a residential (including now)? No 03/02/2024 IPV Inpatient Questions [...] AM EDT Office Visit Hematology/Oncology at [address] [phone] Rodriguez Fowler MD [facility] DR ONCOLOGY [facility] [place] [address] Sherry Cedillo APRN [address] [place] [address] [place] [address] 05/28/2024 8:30 AM EDT Infusion Hematology Oncology at [address] [phone] 05/28/2024 9:30 AM EDT Clinical Support Hematology/Oncology at [address] [phone] Leah Rose, RD [facility] DR [place] [address] documented as of this encounter Visit Diagnoses Diagnosis Duodenal cancer 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
--- OUTSIDE RECORDS SUMMARY | 2024-05-27 18:00 | XMS_ITS | Encounter Summary ---
Author Organization [facility] [place] [address] Care Team Providers Care Host And Hostess Name Role Phone Olga Hoffman APRN Primary Care Provider +1 [phone] Encounter Details Date Type Department Care Team (Latest Contact Info) Description 03/16/2024 Multidisciplinary Ca re Committee [place] [phone] Rudi Hernandez MD [facility] [place] [address] Social History Tobacco Use Types Packs/Day Years Used Date Smoking Tobacco: Never Smokeless Tobacco: Never Alcohol Use Standard Drinks/Week Comments Not Currently 0 (1 standard drink = 0.6 oz pur e alcohol) [facility] Utilities Answer Date Recorded In the past 12 months has [facility] [employer], gas, oil, or water [employer] threatened to shut off services in your [...] any time in the past 12 m [facility], were you homeless or living in a skilled nursing (including now)? No 03/02/2024 IPV Inpatient Questions [...] AM EDT Office Visit Hematology/Oncology at [address] [phone] Rodriguez Fowler MD [facility] [place] [address] Sherry Cedillo APRN [address] [place] [address] DR HEMATOLOGY AND ONCOLOGY [place], [place] [address] 05/28/2024 8:30 AM EDT Infusion Hematology Oncology at [address] [phone] 05/28/2024 9:30 AM EDT Clinical Support Hematology/Oncology at [address] [phone] Leah Rose, RD [facility] DR [place] [address] documented as of this encounter Visit Diagnoses Not on filedocumented in this encounter Care Teams Host And Hostess Relationship Specialty Start Date End Date Olga Hoffman APRN [address] [place] [address] PCP - General Family Medicine 10/30/22 documented as of this encounter
--- OUTSIDE RECORDS SUMMARY | 2024-05-27 18:01 | XMS_ITS | Encounter Summary ---
Author Organization [facility] [place] [address] Care Team Providers Care Automobile Relocation Engineer Name Role Phone Olga Hoffman APRN Primary Care Provider +1 -[phone] Encounter Details Date Type Department Care Team (Late st Contact Info) Description 03/05/2024 Telephone [place] [address] Deena Wells Social History Tobacco [...] living in a prison (including now)? No 03/02/2024 DH IPV Inpatient [...] AM EDT Office Visit Hematology/Oncology at [address] [phone] Rodriguez Fowler MD [facility] [place] [place] [address] Sherry Cedillo APRN [address] [place] [address] HEMATOLOGY AND ONCOLOGY [place], [place] [address] 05/28/2024 8:30 AM EDT Infusion Hematology Oncology at [address] [phone] 05/28/2024 9:30 AM EDT Clinical Support Hematology/Oncology at [address] [phone] Leha Rose, [facility] HEMATOLOGY [place] [address] documented as of this encounter Visit Diagnoses Not on filedocumented in this encounter Care Teams Automobile Relocation Engineer Relationship Specialty Start Date End Date Olga Hoffman APRN [address] [place] [address] PCP - General Family Medicine 10/30/22 documented as of this encounter
--- OUTSIDE RECORDS SUMMARY | 2024-05-27 18:01 | XMS_ITS | Encounter Summary ---
Author Organization [facility] Address [facility] [place] [address] Care Team Providers Care World Designer Name Role Phone Olga Hoffman APRN Primary Care Provider [phone] Encounter Details Date Type Department Care Team (Late st Contact Info) Description 03/05/2024 Telephone [place] [phone] Gary Mtz PA [facility] [place] [address] Social History Tobacco Use Types Packs/Day Years Used Date Smoking Tobacco: Never Smokeless Tobacco: Never Alcohol Use Standard Drinks/Week Comments Not Currently 0 (1 standard drink = 0.6 oz pur e alcohol) [facility] Utilities Answer Date Recorded In the past 12 months has [facility] [employer], gas, oil, or water [employer] threatened to shut off services in your [...] in a long-term (including now)? No 03/02/2024 IPV Inpatient Questions [...] by our endocrine colleagues to [facility] in [place], [place]. I called and confirmed that [employer] is covered with no copay. documented in this encounter Plan of Treatment Upcoming Encounters Date Type Department Care Team (Late st Contact Info) Description 05/28/2024 8:00 AM EDT Office Visit Hematology/Oncology at [address] [phone] Rodriguez Fowler MD [facility] [place] [address] Sherry Cedillo APRN [address] [place] [address] DR HEMATOLOGY AND ONCOLOGY [place], [place] [id number] 05/28/2024 8:30 AM EDT Infusion Hematology Oncology at [address] [phone] 05/28/2024 9:30 AM EDT Clinical Support Hematology/Oncology at [address] [phone] [facility] DR [place]EM[place]Y [place] [address] documented as of this encounter Visit Diagnoses Not on filedocumented in this encounter Care Teams World Designer Relationship Specialty Start Date End Date Olga Hoffman APRN [address] [place] [address] PCP - General Family Medicine 10/30/22 documented as of this encounter
--- OUTSIDE RECORDS SUMMARY | 2024-05-27 18:01 | XMS_ITS | Encounter Summary ---
[place] [address] Care Team Providers Care Flatbed Truck Driver Name Role Phone Olga Hoffman APRN Primary Care Provider [phone] Reason for Referral * Consultation (Routine) - Authorized Specialty Diagnoses / Procedures Referred By Janak holland Referred To Contact Endocrinology Diagnoses Type 2 diabetes mellitus without complications Olga Hoffman APRN [address] [place] [address] [facility] [address] [place] [id number] Referral ID Status Reason Start Date Expiration Date Visits Requested Visits Authorized [id number] Authorized Consult, Test & Treat PCP Updated and/or Approved 02/23/2024 02/22/2025 12 12 Encounter Details Date Type Department Care Team (Latest Contact Info) Description 03/05/2024 Transcribe Orders eDH Incoming Referrals [phone] Olga Hoffman APRN [address] [place] [address] Other specified diabetes mellitus with other specified complication, unspecified whether jail insulin use Social History Tobacco Use Types Packs/Day Years Used Date Smoking Tobacco: Never Smokeless Tobacco: Never Alcohol Use Standard Drinks/Week Comments Not Currently 0 (1 standard drink = 0.6 oz pur e alcohol) [facility] Utilities Answer Date Recorded In [...] living in a fpc (including now)? No 03/02/2024 IPV Inpatient Questions [...] AM EDT Office Visit Hematology/Oncology at [address] [phone] Rodriguez Fowler MD [facility] [place] [address] Sherry Cedillo APRN [address] [place] [address] DR HEMATOLOGY AND ONCOLOGY [place], [place] [id number] 05/28/2024 8:30 AM EDT Infusion Hematology Oncology at [address] [phone] 05/28/2024 9:30 AM EDT Clinical Support Hematology/Oncology at [address] [phone] [facility] DR [place] [address] Scheduled Referrals Name Type Priority Associated Diagnoses Order Schedule Referral to Endocrinology Outpatient Referral Routine Other specified diabetes mellitus with other specified complication, unspecified whether manager terminal insulin use Ordered: 03/05/2024 documented as of this encounter Visit Diagnoses Diagnosis Other specified diabetes mellitus with other specified complication, unspecified whether jail insulin use Duodenal adenocarcinoma Malignant neoplasm of duodenum documented in this encounter Care Teams Flatbed Truck Driver Relationship Specialty Start Date End Date Olga Hoffman APRN [address] [place] [address] PCP - General Family Medicine 10/30/22 documented as of this encounter
--- OUTSIDE RECORDS SUMMARY | 2024-05-27 18:01 | XMS_ITS | Encounter Summary ---
[place] [address] Care Team Providers Care Adhesion Tester Name Role Phone DaltonAbigail choihryn Arabella RUST Primary Care Provider [phone] Encounter Details Date Type Department Care Team (Late st Contact Info) Description 03/02/2024 11:59 PM EDT [place] [phone] Rafi Pena RN Anesthesia Record Procedure Summary [...] Recorded In the past 12 months has [employer], gas, oil, or water [employer] threatened to shut off services in your [...] a senior living (including now)? No 03/02/2024 DH IPV Inpatient [...] AM EDT Office Visit Hematology/Oncology at [address] [phone] Rodriguez Fowler MD [facility] [place] [address] Sherry Cedillo APRN [address] [place] [address] DR HEMATOLOGY AND ONCOLOGY [place], [place] [id number] 05/28/2024 8:30 AM EDT Infusion Hematology Oncology at [address] [phone] 05/28/2024 9:30 AM EDT Clinical Support Hematology/Oncology at [address] [phone] Leah Rose, RD [facility] DR HEMATOLOGY [place] [address] documented as of this encounter Visit Diagnoses Not on filedocumented in this encounter Care Teams Adhesion Tester Relationship Specialty Start Date End Date Olga Hoffman APRN [address] [place] [address] PCP - General Family Medicine 10/30/22 documented as of this encounter
--- OUTSIDE RECORDS SUMMARY | 2024-05-27 18:01 | XMS_ITS | Encounter Summary ---
Author Organization [facility] [place] [address] Care Team Providers Care Rat Culturist Name Role Phone Dalton Olgaevy Bell APRN Primary Care Provider [phone] Reason for Visit * Auth/Cert (Routine) Specialty Diagnoses / Procedures Referred By Contac t Referred To Contact Diagnoses Malignant neoplasm of duodenum DUODENUM ADENCARCINOMA Procedures PRO PART REMV PANC, PROX+REMV DUOD+ANAST @[place] PROCEDURE (WRVU 52.84) Rudi Hernandez MD [facility] [place] [address] [facility] Referral ID Status Reason Start Date Expiration Date Visits Re quested Visits Authorized [id number] 1 1 Encounter Details Date Type Department Care Team (Late st Contact Info) Description 03/01/2024 7:30 AM EDT - 03/01/2024 4:58 PM EDT Surgery [place] [address] Rudi Hernandez MD [facility] [place] [address] @F[place] PROCEDURE (WRU 52.84) Social History Tobacco Use Types Packs/Day Years Used Date Smoking Tobacco: Never Smokeless Tobacco: Never Alcohol Use Standard Drinks/Week Comments Not Currently 0 (1 standard drink = 0.6 oz pur e alcohol) [facility] Utilities Answer Date Recorded In the past [...] in a fdc (including now)? 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 Operations/Major [...] Hospital Course: Charles Nick was admitted to [facility] on 03/01/2024 viathe Same Day Program. He [...] Fluid boluses for oliguria, Cr WNL. DM FINISH PRODUCTION MANAGER recommendedstarting Lantus 8u daily. Seen by wound [...] gauge x 1/4 Needle 1 each by [facility]Non-Drug; Combo Route) route 2 times daily. Generic drug: Insulin [place] (Disposable) 1 each Quantity: 300 each Refills: [...] Center 03/17/2024 9:30 AM Silvio Gilbert MD [facility] PLAS 4M [facility] 03/17/2024 10:[address] [facility] SURG [facility] 03/24/2024 2:00 PM Rdui Hernandez MD [facility] SURG [facility] Outpatient Services/Studies: CBC (with Diff) Standing [...] the nurses in the Surgery Clinic at [phone]. - During the night time hours call the hospital stiff leg operator [phone] and ask to speak to the general surgery resident feed inspection supervisor. Instructions for when you are home: Diet: Ok to eat a regular diet as tolerated. It is important to try to eat as much calories and protein as possible during recovery to aid in healing. You frequently may feel full easily or even havenausea. Take small meals at first and pace yourself. You may supplement your diet with nutritional shakes/drinks (Ensure, [place] Instant Breakfast, Boost) if possible. Enzymes: You [...] until you are seen by Dr. [facility]ac[facility] for your first postop visit. [...] has been scheduled with Dr. Delacruz's office [phone]. In most cases Dr. Delacruz will order blood work to be done on the day of your post op clinic appointment. This decision is made on a ktaz-yy-lpji basis so ask if this is necessary and plan to come to [facility] pr ior to the appointment to get the blood work done in 3L as instructed. - Of course, if you are being discharged on a weekend and Dr. Delacruz's office is closed then call the office [phone] first thing Friday. Future Appointments Date Time Provider Department Center 03/17/2024 9:30 AM Silvio Gilbert MD [facility] PLAS 4M [facility] 03/17/2024 10:[address] [facility] SURG [facility] 03/24/2024 2:00 PM Rudi Hernandez MD [facility] SURG [facility] You have been scheduled for a follow-up with our outpatient other sales support worker Donna Dewey RD to review your nutrition postoperatively - this has been coordinated to occur the same day you are here seeing plastic surgery. I reached out to your home therapy clinician Dr. Maxwell's office to request follow-up with [...] speak with the surgery nurses.The number is [phone]. - During the night call the [facility] stiff leg operator and ask to speak to the surgery resident feed inspection supervisor for general surgery. General Instructions Diabetes Discharge [...] AM Silvio Gilbert MD Plastic Surgery at [facility] Arrive at: [employer] [facility] 4M [phone] 03/17/2024 10:[address] General Surgery at [facility] Arrive at: [employer] [facility] 4L [phone] 03/24/2024 2:00 PM Rudi Hernandez MD General Surgery at [facility] Arrive at: [employer] [facility] 4L [phone] Please dispose of unused excess opioids before your appointment or bring them with you to the appointment and we will help you dispose of them correctly. Future Orders Complete By Expires CBC (with Diff) [FIT429 Custom] 03/24/2024 03/08/2025 Process Instructions: INCLUDES: WBC, RBC, Hgb, Hct, Platelets, RBC Indices and Differential Scheduling Instructions: Comments: Questions: Comprehensive metabolic panel (non-fasting) [LAB17 Custom] 03/24/2024 (Approximate) 03/08/2025 Process Instructions: INCLUDES: Calcium, T Protein, Albumin, AST, ALT, Alk Phos, T Bili, BUN, Creat, GFR, Glucose, Lytes. Scheduling Instructions: Comments: Questions: Magnesium [[id number] Custom] 03/24/2024 03/08/2025 Process Instructions: Scheduling Instructions: Comments: Questions: Phosphorus [WUW718 Custom] 03/24/2024 09/23/2024 Process Instructions: Scheduling Instructions: Comments: Questions: Discharge References/Attachments: Discharge References/Attachments None Follow-up Recommendations for Providers: Medication changes: Insulin Lantus 10 u nightly added due to whipple procedure Diet changes: No change has been made to diet CC: Olga Hoffman, MANAGER CONCRETE [phone] Signed: Tiffanie Pabon MD Surgical Oncology Service Team Pager #[phone] 03/08/2024 1:48 PM For questions regarding this document or issues relating to this hospitalization on the Surgical Oncology Service, please contact Rudi Hernandez MD's office at [phone] documented in this encounter Discharge Instructions * [...] the nurses in the Surgery Clinic at [phone]. - During the night time hours call the hospital stiff leg operator [phone] and ask to speak to the general surgery resident feed inspection supervisor. Instructions for when you are home: Diet: Ok to eat a regular diet as tolerated. It is important to try to eat as much calories and protein as possible during recovery to aid in healing. You frequently may feel full easily or even havenausea. Take small meals at first and pace yourself. You may supplement your diet with nutritional shakes/drinks (Ensure, [place] Instant Breakfast, Boost) if possible. Enzymes: You [...] until you are seen by Dr. Delacruz [facility] for your first postop visit. [...] Incision: The skin incision(s) is closed with: [place] Usually the edd are removed anywhere from [...] has been scheduled with Dr. Delacruz's office [phone]. In most cases Dr. Delacruz will order blood work to be done on the day of your post op clinic appointment. This decision is made on a qozm-sk-pull basis so ask if this is necessary and plan to come to [facility] pr ior to the appointment to get the blood work done in 3L as instructed. - Of course, if you are being discharged on a weekend and Dr. Delacruz's office is closed then call the office [phone] first thing Friday. Future Appointments Date Time Provider Department Center 03/17/2024 9:30 AM Silvio Gilbert MD [facility] PLAS 4M [facility] 03/17/2024 10:[address] [facility] SURG [facility] 03/24/2024 2:00 PM Rudi Hernandez MD [facility] SURG [facility] You have been scheduled for a follow-up with our outpatient other sales support worker Donna Dewey RD to review your nutrition postoperatively - this has been coordinated to occur the same day you are here seeing plastic surgery. I reached out to your home therapy clinician Dr. Maxwell's office to request follow-up with [...] speak with the surgery nurses.The number is [phone]. - During the night call the [facility] stiff leg operator and ask to speak to the surgery resident feed inspection supervisor for general surgery. documented in this encounter Medications at Time of Discharge Medication Sig Dispensed Refills Start Date End Date potassium chloride ER (Klor-Con, K-Tab) 10 mEq ER tablet Take 1 tablet by mouth 2 times daily. 30 tablet 03/08/2024 Insulin [place], Disposable, (BD Ultra-Fine Micro Pen Needle) 32 gauge x 1/4 Needle 1 each by [facility]Non-Drug; Combo Route) route 2 times [...] Biopsy Liver Percutaneous 01/07/2023 Juan Wright MD [facility] INTERVENTIONL RAD PRO PART REMV PANC, PROX+REMV DUOD+ANAST N/A 03/01/2024 @WHIPPLE PROCEDURE (WRVU 52.84) performed by Rudi Hernandez MD at [facility] MAIN OR PRO TRANSFER SKIN PEDICLE FLAP N/A 03/01/2024 TRANSFER, INTERMEDIATE, ANY PEDICLE FLAP, ANY LOCATION (WRVU 4.77) performed by Rudi Hernandez MD at [facility] MAIN OR Social History:Home set-up: Lives with [...] for this consult. MIKI HARRELL, PT Pager: [phone] Physical Therapy Inpatient Rehabilitation Department * Diane [...] ; Age: 4 1975; 48 y.o. Room/Bed: [address] [place] [address] Today's Date: 03/07/24 ID: Charles Nick is [...] Fluid boluses for oliguria, Cr WNL. DM FINISH PRODUCTION MANAGER recommendedstarting Lantus 8u daily. Seen by wound [...] Pabon MD Surgical Oncology Service Team Pager #[phone] 03/07/24 8:33 AM * Diane Sexton MD [...] ; Age: 4 1975; 48 y.o. Room/Bed: [facility]/404-B Today's Date: 03/06/24 ID: Charles Nick is [...] Fluid boluses for oliguria, Cr WNL. DM FINISH PRODUCTION MANAGER recommendedstarting Lantus 8u daily. Seen by wound [...] Pabon MD Surgical Oncology Service Team Pager #[phone] 03/06/24 8:35 AM I saw, examined, and [...] insulin doses adjusted. Isidra Hickey APRN, DNP, -[facility] Inpatient Diabetes Management Team Team pager #[phone] * Gary Mtz PA - 03/05/2024 9:58 [...] Fluid boluses for oliguria, Cr WNL. DM FINISH PRODUCTION MANAGER recommendedstarting Lantus 8u daily. Seen by wound [...] Vj Joya Surgical Oncology Service Team Pager #[phone] 03/05/24 9:58 AM I saw, examined, and [...] Diet CC Monitoring: Q4 Kristen Meza APRN [facility] Endocrinology Diabetes Management Pager [phone] Weekends please page [phone] * Miki Harrell, PT - 03/04/2024 1:20 [...] ; Age: 4 1975; 48 y.o. Room/Bed: [address] [place] [address] Today's Date: 03/04/24 ID: Charles Nick is [...] Fluid boluses for oliguria, Cr WNL. DM FINISH PRODUCTION MANAGER recommendedstarting Lantus 8u daily. Seen by wound [...] fatty liver disease, type 2 diabetes on [facility], and a newly diagnosed duodenal adenocarcinoma who [...] JULIO Burgess Surgical Oncology Service Team Pager #[phone] 03/04/24 12:09 PM Associated attestation - Rudi [...] as a scribe for Dr. Mac Holguin. Steel Molder Patient seen and examined on daily rounds. I agree with the above assessment and plan. Mac Holguin MD [address] [facility] Nurse: Collin Vallecillo RN Resident:: Juan Michelle [...] if this can be covered for him press tender long goods. PLAN Lantus:8--> ADJUSTED to 10 units Lispro for correction q 4 hours based on a correction factor of 40 Diet Clear Liquid Monitoring: Q4 Discharge considerations: Open to adding back insulin at discharge CGM for discharge Kristen Meza APRN [facility] Endocrinology Diabetes Management Pager [phone] Weekends please page [phone] 35 minutes were spent over the course [...] PT to follow tomorrow. * Kristen Meza, MANAGER CONCRETE - 03/03/2024 3:01 PM EDT Images from [...] Clear liquid Monitoring: Q4 Kristen Meza APRN [facility] Endocrinology Diabetes Management Pager [phone] Weekends please page [phone] 35 minutes were spent over the course [...] Pabon MD Surgical Oncology Service Team Pager #[phone] 03/03/24 2:06 PM * Ezio, Mac De [...] as a scribe for Dr. Mac Holguin. Steel Molder Patient seen on daily rounds. I agree with the above assessment and plan. Fantastic analgesia with epidural. Mac Holguin MD 0583 [facility] Nurse: Collin Vallecillo RN Resident:: Juan [...] Biopsy Liver Percutaneous 01/07/2023 Juan Wright MD [facility] INTERVENTIONL RAD Social History:Home set-up: Lives with [...] for evaluation today. Pain: well controlled with CHIEF WARDEN/epidural Vital Signs / Cardiopulmonary: SpO2: 95% on [...] for this consult. MIKI HARRELL, PT Pager: [phone] Physical Therapy Inpatient Rehabilitation Department 2017 PT [...] to LCWS for today. OOB/ambulate/PT/OT. Appreciate DM FINISH PRODUCTION MANAGER recommendations for his post-Whipple hyperglycemia in the [...] status: Attempt Cardiopulmonary Resuscitation - Inpatient Signed: UJLIO Burgess Surgical Oncology Service Team Pager #[phone] 03/02/24 3:24 PM * Violeta Manley RN - 03/02/2024 3:15 PM EDT Pt arrived to 404B around 1445. Connected to Fluid-1o, VSS on RA. NG to LCWS. LR [...] assessment and plan Mac Holguin MD [facility] [facility] Nurse: Robert Pena RN Resident:: Juan [...] Kim MD 03/01/2024 Surgical Oncology, Team Pager [phone] * Roxie Rascon RN - 03/01/2024 9:10 [...] fatty liver disease, type 2 diabetes on [facility], with a newly diagnosed duodenal adenocarcinoma. He [...] and Plan: 48 y.o. male presents for [place]. Latonia Red MD 03/01/24 documented in this [...] none Patient is insured through: Primary Insurance: [employer] Payor: [employer] / Plan: [facility] PPO / Product Type: *No Product type* / Secondary Insurance: N/A Prescription Coverage: Yes This plan was formulated with input from patient, and team. All are in agreement with plan. JACKIE Mcguire, embedded systems software engineer of Care Management Pager [phone] * Plan of Care - Nahomi Toussaint [...] plantar dressing remains CDI, R toe wound TUBULAR PRODUCTS FABRICATOR. Midline incision with dressing on middleaspect with [...] result of 206mL. ordered a straight cath, commercial insurance underwriter straight cathed 300mL of urine at 1752. [...] No Patient is insured through: Primary Insurance: [employer] Payor: [facility] / Plan: [facility] PPO / Product Type: *No Product [...] Anticipated Date of Discharge: 03/07/2024 JACKIE Mcguire, embedded systems software engineer of Care Management Pager [phone] * Plan of Care - Katelynn Unger [...] [current deficits]: unfamiliar environment, lines/tubes/drains, generalized weakness, narcotics/CHIEF WARDEN/epidural, recent surgery, bilat LE baseline numbness Assistance [...] [current deficits]: unfamiliar environment, lines/tubes/drains, generalized weakness, narcotics/CHIEF WARDEN/epidural, recent surgery, bilat LE baseline numbness Assistance [...] management and to provide a review of press tender long goods diabetes care. Diabetes History: Charles Nick has had diabetes since . Part of this hx was gleaned from Dr Dawson evaluation in 2020 upon referral from [facility]. He was seen briefly in the [...] found for: HA1C ordered and pending FROM [employer] [facility] [facility] in 2020) has Ha1C screen shots which [...] education: we believe he has had at [facility]-was referred to dr dawson from [place] . Lab Results Component Value Date MICROALBUR [...] insulin and what his Ha1C results to director long term care diabetes care: Medications - Outpatient treatment regimen [...] Team, bedside nurse, medical record, and Patient (Tubular Riveter spoke with the patient in the recovery.) [...] surrogate would be surrogate decision maker per [place] surrogate decision making law. (Only good for 180 days) Any patient receiving care in [place] must abide by [place] law. The hierarchy for surrogate decision making [...] (i) The agent with financial power of bankruptcy attorney or a conservator appointed in accordance [...] homeless or living in a fdc (including now)?: No In the past 12 months has the [employer], oil, or water i[employer] threatened to shut off services in your [...] Current DME: none Home Address confirmed as: [address] [place] [phone] Social & Family Supports: All names listed below confirmed with patient as current and correct Extended Emergency Contact Information Primary Emergency Contact: JENELLE SOUZA Address: [address] [place] [address] [facility] [place] [employer] Relation: Life Partner Current [...] Specific Information: none Health/Prescription Coverage: Primary Insurance: [facility] Payor: [facility] / Plan: [facility] PPO / Product Type: *No Product type* / Secondary Insurance: N/A ; Prescription Coverage: Yes Preferred Pharmacy: [facility] [address] [address] [facility] - [place], [place] - [address] [place] [address] Status: Patient is a : No Primary Care Provider confirmed: Olga Hoffman, MANAGER CONCRETE [phone] Patient/Caregiver Goals of Treatment: Return home with [...] coordination of care as indicated. JACKIE Mcguire, embedded systems software engineer of Care Management Pager [phone] * Consult Note - Francine Martinez RN [...] Cover with a Mepilex border. (Medihoney PS# [id number]) Right hallux underside: leave the blister open to air Wound Care Team will follow next week. Discussed plan with: PA: Gary Mtz, secure chat Please contact Francine Martinez RN on secure chat or the wound care team at [phone] or pager [phone] with skin and wound care concerns or questions. Electronically Signed By: Francine Martinez RN * Brief Op Note - Latonia Red MD - 03/01/2024 6:38 PM EDT Brief Operative Note Patient Name: Charles Nick : [id number] MR#: [id number] Case Date: 03/01/2024 Surgeon: Surgeons and Role: * Rudi Hernandez MD - Primary * Laotnia Red MD Preoperative diagnosis: DUODENUM ADENCARCINOMA Postoperative [...] Biospecimen to store? No SPECIMEN TO PATHOLOGY [place]: Yellow- pancreatic neck margin, Blue paint- vascular groove, Otero- SMA, Green- bile duct margin DUODENUM ADENCARCINOMA [...] Hernandez MD - 03/01/2024 8:28 AM EDT [facility] Operative Note Patient Name: Charles Nick : [id number] MR#: [id number] Case Date: 03/01/2024 Surgeon: Surgeons and Role: [...] Biospecimen to store? No SPECIMEN TO PATHOLOGY [place]: Yellow- pancreatic neck margin, Blue paint- vascular groove, Otero- SMA, Green- bile duct margin DUODENUM ADENCARCINOMA [...] fatty liver disease, type [facility] diabetes [facility], with a newly diagnosed duodenal adenocarcinoma. [...] under the neck and guided 1/4 inch Mcmillan over the Parul clamp. Umbilical tape was [...] was not able to place the 8 [place] [employer] feeding tube into the duct, thus I used a 5 Syrian feeding tube which passed easily. I placed [...] used to createthe PJ anastomosis, the 5 Syrian feeding tube was cut to 8 cm [...] were placed with 3-0 silk. A 19 Syrian drain was brought into the right abdomen [...] AM EDT Office Visit Hematology/Oncology at [address] [phone] Rodriguez Fowler MD [facility] [place] [address] Sherry Cedillo APRN [address] [place] [address] DR HEMATOLOGY AND ONCOLOGY [place], [place] [id number] 05/28/2024 8:30 AM EDT Infusion Hematology Oncology at [address] [phone] 05/28/2024 9:30 AM EDT Clinical Support Hematology/Oncology at [address] [phone] Leah Rose, ARASH [facility] DR H[place]ATOLOGY [place] [address] documented as of this encounter Procedures Procedure [...] 7:45 AM EDT Transfer Skin Pedicle Flap ([id number]) 03/01/2024 7:42 AM EDT DUODENUM ADENCARCINOMA Part Remv Panc, Prox+Remv Duod+Anast ([id number]) 03/01/2024 7:42 AM EDT 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/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 03/01/2024 7:03 AM EDT documented in this encounter Results * Phosphorus (04/20/2024 12:39 PM EDT) Phosphorus 3.1 2.5 - 4.5 mg/dL 04/20/2024 1:[address] [facility] Blood VENOUS BLOOD SPECIMEN / Unknown Venipuncture / Unknown 04/20/2024 12:39 PM EDT 04/20/2024 12:39 PM EDT Rudi Hernandez MD CHEMISTRY ORDERABLES Performing Organization Address City/[facility]/ZIP Co de Phone Number [facility] [place] [address] * Magnesium (04/20/2024 12:39 PM EDT) Magnesium 0.74 0.69 - 1.07 mMol/L 04/20/2024 1:[address] [facility] Blood VENOUS BLOOD SPECIMEN / Unknown Venipuncture / Unknown 04/20/2024 12:39 PM EDT 04/20/2024 12:39 PM EDT Rudi Hernandez MD CHEMISTRY ORDERABLES Performing Organization Address City/[facility]/ZIP Co de Phone Number [facility] [place] [address] * (ABNORMAL) Comprehensive metabolic panel (04/20/2024 12:39 PM EDT) Glucose 204(H) 65 - 199 mg/dL 04/20/2024 1:[address] [facility] Comment:Glucose Concentratio n >=200 mg/dL plus symptoms is consistent with Diabetes Mellitus. Blood Urea Nitrogen 5(L) 10 - 20 mg/dL 04/20/2024 1:[address] [facility] Creatinine 0.82 0.80 - 1.50 mg/dL 04/20/2024 1:[address] [facility] Sodium 141 135 - 145 mMol/L 04/20/2024 1:[address] [facility] Potassium 4.1 3.5 - 5.0 mMol/L 04/20/2024 1:[address] [facility] Chloride 104 98 - 107 mMol/L 04/20/2024 1:[address] [facility] Carbon Dioxide 27 22 - 31 mMol/L 04/20/2024 1:28 PM [facility] Anion Gap 10 5 - 15 mMol/L 04/20/2024 1:28 PM [facility] Calcium 9.2 8.5 - 10.5 mg/dL 04/20/2024 1:28 PM [facility] Protein, Total 6.5 6.1 - 8.0 g/dL 04/20/2024 1:28 PM [facility] Albumin 3.5 3.2 - 5.2 g/dL 04/20/2024 1:28 PM [facility] Aspartate Aminotransferase 15 <=39 unit/L 04/20/2024 1:28 PM [facility] Alanine Aminotransferase 14 0 - 55 unit/L 04/20/2024 1:28 PM [facility] Alkaline Phosphatase 71 40 - 130 unit/L 04/20/2024 1:28 PM [facility] Bilirubin, Total 0.3 <=1.3 mg/dL 04/20/2024 1:28 PM [facility] Est Glomerular Filtration Rate - Male 108 mL/min/1. 73 m?? 04/20/2024 1:28 PM [facility] Comment: This patient's estimated GFR was [...] Foundation Fasting Status No 04/20/2024 1:28 PM [facility] Blood VENOUS BLOOD SPECIMEN / Unknown Venipuncture / Unknown 04/20/2024 12:39 PM EDT 04/20/2024 12:39 PM EDT Rudi Hernandez MD CHEMISTRY ORDERABLES [facility] [place] [address] * (ABNORMAL) CBC (with Diff) (04/20/2024 12:39 PM EDT) White Blood Cell 7.18 x10(3)/mc L 04/20/2024 12:[address] [facility] Red Blood Cell 5.26 4.58 - 5.54 x10(6)/mc L 04/20/2024 12:[address] [facility] Hemoglobin 12.6(L) 13.7 - 16.5 g/dL 04/20/2024 12:[address] [facility] Hematocrit 40.5 40.5 - 48.5 % 04/20/2024 12:[address] [facility] Mean Cell Volume 77.0(L) 82.9 - 93.1 fL 04/20/2024 12:[address] [facility] Mean Cell Hemoglobin 24.0(L) 27.5 - 32.1 pg 04/20/2024 12:[address] [facility] Mean Cell Hemoglobin Concentration 31.1(L) 32.0 - 35.7 g/dL 04/20/2024 12:[address] [facility] Platelet 178 145 - 357 x10(3)/mc L 04/20/2024 12:[address] [facility] Mean Platelet Volume 10.5 7.6 - 12.9 fL 04/20/2024 12:[address] [facility] RDW Standard Deviation 48.7(H) 36.0 - 45.0 fL 04/20/2024 12:[address] [facility] RDW coefficient of variation 17.7(H) 11.4 - 13.8 % 04/20/2024 12:[address] [facility] NRBC% auto 0.0 % 04/20/2024 12:49 PM [facility] NRBC Absolute 0.00 0.00 - 0.00 x10(3)/mc L 04/20/2024 12:49 PM [facility] Neutrophil % 66.4 % 04/20/2024 12:49 PM [facility] Neutrophil Absolute (ANC) - Automated 4.77 1.70 - 6.10 x10(3)/mc L 04/20/2024 12:49 PM [facility] Lymph % 20.8 % 04/20/2024 12:49 PM [facility] Lymph Absolute 1.49 0.90 - 3.20 x10(3)/mc L 04/20/2024 12:49 PM [facility] Monocyte % 6.1 % 04/20/2024 12:49 PM [facility] Monocyte Absolute 0.44 0.30 - 0.90 x10(3)/mc L 04/20/2024 12:49 PM [facility] Eos % 5.3 % 04/20/2024 12:49 PM [facility] Eos Absolute 0.38 0.00 - 0.40 x10(3)/mc L 04/20/2024 12:49 PM [facility] Basophil % 0.6 % 04/20/2024 12:49 PM [facility] Baso Absolute 0.04 0.00 - 0.10 x10(3)/mc L 04/20/2024 12:49 PM [facility] Immature Gran % 0.8 % 12:49 PM [facility] Immature Gran Absolute 0.06(H) 0.00 - 0.04 x10(3)/mc L 04/20/2024 12:49 PM [facility] Blood VENOUS BLOOD SPECIMEN / Unknown Venipuncture / Unknown 04/20/2024 12:39 PM EDT 04/20/2024 12:39 PM EDT Rudi Hernandez MD HEMATOLOGY ORDERABLE S Performing Organization Address [facility] Co de Phone Number [facility] [place] [address] * POCT Glucose (03/08/2024 11:26 AM EDT) Glucose, POC 158 65 - 199 mg/dL [facility] Comment: Supplemental ranges: <140 mg/dL before meals <180 mg/dL all other times of the day Blood 03/08/2024 11:2 6 AM EDT 03/08/2024 11:26 AM EDT Rudi Hernandez MD POINT OF CARE TEST O RDERABLES Performing Organization Address [facility] Co de Phone Number [facility] [place] [address] * POCT Glucose (03/08/2024 8:13 AM EDT) Glucose, POC 170 65 - 199 mg/dL [facility] Comment: Supplemental ranges: <140 mg/dL before meals <180 mg/dL all other times of the day Blood 03/08/2024 8:13 AM EDT 03/08/2024 8:13 AM EDT Rudi Hernandez MD POINT OF CARE TEST O RDERABLES Performing Organization Address [facility] Co de Phone Number [facility] [place] [address] * Scan, Peripheral Blood (03/08/2024 4:44 AM EDT) Plat estimate Normal [facility] RBC Morphology Abnormal [facility] Hypochromia Slight [facility] Polychromasia Present >5/HPF [facility] Marcy Cells 6-10 /HPF [facility] Blood 03/08/2024 4:44 AM EDT 03/08/2024 5:05 AM EDT Narrative Resulting Agency Comment Spec In Lab Latonia Red MD HEMATOLOGY ORDERABLE S [facility] [place] [address] * (ABNORMAL) Differential, Automated (03/08/2024 4:44 AM EDT) Neutrophil % 84.9 % [facility] Neutrophil Absolute 8.47(H) 1.70 - 6.10 x10(3)/mc L [facility] Lymph % 8.6 % [facility] Lymphocytes Abs 0.9 0.9 - 3.2 x10(3)/ L [facility] Monocyte % 4.7 % [facility] Monocyte Abs 0.5 0.3 - 0.9 x10(3)/ L [facility] Eos % 1.0 % [facility] Eosinophils Abs 0.1 0.0 - 0.4 x10(3)/[facility] Basophil % 0.3 % [facility] Baso Absolute 0.0 0.0 - 0.1 x10(3)/mc L [facility] Immature Gran % 0.50 % [facility] Comment: Immature granulocytes(IG's)percentage and absolute count will include metamyelocytes, myelocytes, and promyelocytes. Blood smears from CBCs yielding IG's will be scanned manually for concordance. If this scan disagrees with the automated IG or if promyelocytes are noted, a manual differential will be performed. Immature Gran Absolute 0.05(H) 0.00 - 0.04 x10(3)/mc L [facility] Blood 03/08/2024 4:44 AM EDT 03/08/2024 5:05 AM EDT Narrative Resulting Agency Comment Spec In Lab Latonia Red MD HEMATOLOGY ORDERABLE S [facility] [place] [address] * (ABNORMAL) Hemogram (03/08/2024 4:44 AM EDT) White Blood Cell 10.0(H) 4.0 - 9.5 x10(3)/mc L [facility] Red Blood Cell 5.24 4.58 - 5.54 x10(6)/mc L [facility] Hemoglobin 12.7(L) 13.7 - 16.5 g/dL [facility] Hematocrit 39.2(L) 40.5 - 48.5 % [facility] Mean Cell Volume 74.8(L) 82.9 - 93.[address] [facility] Mean Cell Hemoglobin 24.2(L) 27.5 - 32.[address] [facility] Mean Cell Hemoglobin Concentration 32.4 32.0 - 35.7 g/dL [facility] Platelet 295 145 - 357 x10(3)/ L [facility] RDW Standard Deviation 40.1 36.0 - 45.0 [facility] RDW coefficient of variation 14.9(H) 11.4 - 13.8 % [facility] Mean Platelet Volume 10.1 7.6 - 12.[address] [facility] NRBC% auto 0.0 % [facility] NRBC Absolute 0.000 0.000 - 0.000 x10(3)/ L [facility] Blood 03/08/2024 4:44 AM EDT 03/08/2024 5:05 AM EDT Narrative Resulting Agency Comment Spec In Lab Latonia Red MD HEMATOLOGY ORDERABLE S [facility] [place] [address] * (ABNORMAL) Comprehensive metabolic panel (non-fasting) (03/08/2024 4:44 AM EDT) Glucose 197 65 - 199 mg/dL [facility] Comment:Diabetes: >=200 mg/d L plus symptoms Blood Urea Nitrogen 3(L) 10 - 20 mg/dL [facility] Creatinine 0.57(L) 0.80 - 1.50 mg/dL [facility] Sodium 132(L) 135 - 145 mmol/L [facility] Potassium 3.2(L) 3.5 - 5.0 mmol/L [facility] Comment: Please note: ??Patients with WBC >100,000 may have falsely elevated Potassium levels. ??For accurate Potassium quantification in these patients send serum separator tube (gold top) for subsequent determinations. ??Contact the Clinical Chemistry Laboratory if there are any questions. Chloride 97(L) 98 - 107 mmol/L [facility] Carbon Dioxide 21(L) 22 - 31 mmol/L [facility] Anion Gap 14 5 - 15 mmol/L [facility] Calcium 8.8 8.5 - 10.5 mg/dL [facility] Protein, Total 6.1 6.1 - 8.0 g/dL [facility] Albumin 3.0(L) 3.2 - 5.2 g/dL [facility] Aspartate Aminotransferase 11 0 - 39 unit/L [facility] Alanine Aminotransferase 22 0 - 55 unit/L [facility] Alkaline Phosphatase 94 40 - 130 unit/L [facility] Bilirubin, Total 0.4 0.2 - 1.3 mg/dL [facility] Est Glomerular Filtration Rate 120 >=60 mL/min/1. 73 m?? [facility] Comment: This patient's estimated GFR [...] MD CHEMISTRY ORDERABLES Performing Organization Address City/[facility]/ZIP Co de Phone Number [facility] [place] [address] * POCT Glucose (03/08/2024 4:25 AM EDT) Glucose, POC 168 65 - 199 mg/dL [facility] Comment: Supplemental ranges: <140 mg/dL before meals <180 mg/dL all other times of the day Blood 03/08/2024 4:25 AM EDT 03/08/2024 4:25 AM EDT Rudi Hernandez MD POINT OF CARE TEST O RDERABLES Performing Organization Address [facility] Co de Phone Number [facility] [place] [address] * POCT Glucose (03/08/2024 12:06 AM EDT) Glucose, POC 166 65 - 199 mg/dL [facility] Comment: Supplemental ranges: <140 mg/dL before meals <180 mg/dL all other times of the day Blood 03/08/2024 12:0 6 AM EDT 03/08/2024 12:06 AM EDT Rudi Hernandez MD POINT OF CARE TEST O RDERABLES Performing Organization Address City/[facility] Co de Phone Number [facility] [place] [address] * POCT Glucose (03/07/2024 8:35 PM EDT) Glucose, POC 177 65 - 199 mg/dL [facility] Comment: Supplemental ranges: <140 mg/dL before meals <180 mg/dL all other times of the day Blood 03/07/2024 8:35 PM EDT 03/07/2024 8:35 PM EDT Rudi Hernandez MD POINT OF CARE TEST O RDERABLES Performing Organization Address City/[facility]/ZIP Co de Phone Number [facility] [place] [address] * POCT Glucose (03/07/2024 4:08 PM EDT) Glucose, POC 187 65 - 199 mg/dL [facility] Comment: Supplemental ranges: <140 mg/dL before meals <180 mg/dL all other times of the day Blood 03/07/2024 4:08 PM EDT 03/07/2024 4:08 PM EDT Rudi Hernandez MD POINT OF CARE TEST O RDERABLES Performing Organization Address [facility]/ZIP Co de Phone Number [facility] [place] [address] * POCT Glucose (03/07/2024 12:20 PM EDT) Glucose, POC 183 65 - 199 mg/dL [facility] Comment: Supplemental ranges: <140 mg/dL before meals <180 mg/dL all other times of the day Blood 03/07/2024 12:2 0 PM EDT 03/07/2024 12:20 PM EDT Rudi Hernandez MD POINT OF CARE TEST O RDERAVANNESSA [facility] [place] [address] * POCT Glucose (03/07/2024 8:35 AM EDT) Glucose, POC 155 65 - 199 mg/dL [facility] Comment: Supplemental ranges: <140 mg/dL before meals <180 mg/dL all other times of the day Blood 03/07/2024 8:35 AM EDT 03/07/2024 8:35 AM EDT Rudi Hernandez MD POINT OF CARE TEST O RDERABLES [facility] [place] [address] * (ABNORMAL) Differential, Automated (03/07/2024 4:53 AM EDT) Neutrophil % 81.0 % [facility] Neutrophil Absolute 6.52(H) 1.70 - 6.10 x10(3)/ L [facility] Lymph % 11.1 % [facility] Lymphocytes Abs 0.9 0.9 - 3.2 x10(3)/[facility] Monocyte % 5.8 % [facility] Monocyte Abs 0.5 0.3 - 0.9 x10(3)/ L [facility] Eos % 1.1 % [facility] Eosinophils Abs 0.1 0.0 - 0.4 x10(3)/[facility] Basophil % 0.5 % [facility] Baso Absolute 0.0 0.0 - 0.1 x10(3)/ L [facility] Immature Gran % 0.50 % [facility] Comment: Immature granulocytes(IG's)percentage and absolute count will include metamyelocytes, myelocytes, and promyelocytes. Blood smears from CBCs yielding IG's will be scanned manually for concordance. If this scan disagrees with the automated IG or if promyelocytes are noted, a manual differential will be performed. Immature Gran Absolute 0.04 0.00 - 0.04 x10(3)/mc L [facility] Blood 03/07/2024 4:53 AM EDT 03/07/2024 5:12 AM EDT Narrative Resulting Agency Comment Spec In Lab Latonia Red MD HEMATOLOGY ORDERABLE S [facility] [place] [address] * (ABNORMAL) Hemogram (03/07/2024 4:53 AM EDT) White Blood Cell 8.0 4.0 - 9.5 x10(3)/mc L [facility] Red Blood Cell 4.89 4.58 - 5.54 x10(6)/mc L [facility] Hemoglobin 11.9(L) 13.7 - 16.5 g/dL [facility] Hematocrit 37.5(L) 40.5 - 48.5 % [facility] Mean Cell Volume 76.7(L) 82.9 - 93.1 [facility] Mean Cell Hemoglobin 24.3(L) 27.5 - 32.[address] [facility] Mean Cell Hemoglobin Concentration 31.7(L) 32.0 - 35.7 g/dL [facility] Platelet 230 145 - 357 x10(3)/mc L [facility] RDW Standard Deviation 41.0 36.0 - 45.0 [facility] RDW coefficient of variation 14.7(H) 11.4 - 13.8 % [facility] Mean Platelet Volume 10.5 7.6 - 12.9 [facility] NRBC% auto 0.0 % [facility] NRBC Absolute 0.000 0.000 - 0.000 x10(3)/mc L [facility] Blood 03/07/2024 4:53 AM EDT 03/07/2024 5:12 AM EDT Narrative Resulting Agency Comment Spec In Lab Latonia Red MD HEMATOLOGY ORDERABLE S [facility] [place] [address] * (ABNORMAL) Comprehensive metabolic panel (non-fasting) (03/07/2024 4:53 AM EDT) Glucose 180 65 - 199 mg/dL [facility] Comment:Diabetes: >=200 mg/d L plus symptoms Blood Urea Nitrogen 5(L) 10 - 20 mg/dL [facility] Creatinine 0.67(L) 0.80 - 1.50 mg/dL [facility] Sodium 136 135 - 145 mmol/L [facility] Potassium 3.8 3.5 - 5.0 mmol/L [facility] Comment: Please note: ??Patients with WBC >100,000 may have falsely elevated Potassium levels. ??For accurate Potassium quantification in these patients send serum separator tube (gold top) for subsequent determinations. ??Contact the Clinical Chemistry Laboratory if there are any questions. Chloride 99 98 - 107 mmol/L [facility] Carbon Dioxide 25 22 - 31 mmol/L [facility] Anion Gap 12 5 - 15 mmol/L [facility] Calcium 8.4(L) 8.5 - 10.5 mg/dL [facility] Protein, Total 5.9(L) 6.1 - 8.0 g/dL [facility] Albumin 3.0(L) 3.2 - 5.2 g/dL [facility] Aspartate Aminotransferase 11 0 - 39 unit/L [facility] Alanine Aminotransferase 25 0 - 55 unit/L [facility] Alkaline Phosphatase 88 40 - 130 unit/L [facility] Bilirubin, Total 0.4 0.2 - 1.3 mg/dL [facility] Est Glomerular Filtration Rate 114 >=60 mL/min/1. 73 m?? [facility] Comment: This patient's estimated GFR [...] MD CHEMISTRY ORDERABLES Performing Organization Address City/[facility]/ZIP Co de Phone Number [facility] [place] [address] * POCT Glucose (03/07/2024 3:25 AM EDT) Glucose, POC 169 65 - 199 mg/dL [facility] Comment: Supplemental ranges: <140 mg/dL before meals <180 mg/dL all other times of the day Blood 03/07/2024 3:25 AM EDT 03/07/2024 3:25 AM EDT Rudi Hernandez MD POINT OF CARE TEST O RDERABLES Performing Organization Address [facility] Co de Phone Number [facility] [place] [address] * POCT Glucose (03/06/2024 11:20 PM EDT) Glucose, POC 141 65 - 199 mg/dL [facility] Comment: Supplemental ranges: <140 mg/dL before meals <180 mg/dL all other times of the day Blood 03/06/2024 11:2 0 PM EDT 03/06/2024 11:20 PM EDT Rudi Hernandez MD POINT OF CARE TEST O RDERABLES Performing Organization Address City/[facility] Co de Phone Number [facility] [place] [address] * POCT Glucose (03/06/2024 8:39 PM EDT) Glucose, POC 152 65 - 199 mg/dL [facility] Comment: Supplemental ranges: <140 mg/dL before meals <180 mg/dL all other times of the day Blood 03/06/2024 8:39 PM EDT 03/06/2024 8:39 PM EDT Rudi Hernandez MD POINT OF CARE TEST O ELKIN [facility] [place] [address] * POCT Glucose (03/06/2024 3:50 PM EDT) Glucose, POC 150 65 - 199 mg/dL [facility] Comment: Supplemental ranges: <140 mg/dL before meals <180 mg/dL all other times of the day Blood 03/06/2024 3:50 PM EDT 03/06/2024 3:50 PM EDT Rudi Hernandez MD POINT OF CARE TEST O ELKIN Performing Organization Address City/[facility]/ZIP Co de Phone Number [facility] [place] [address] * POCT Glucose (03/06/2024 11:38 AM EDT) Glucose, POC 158 65 - 199 mg/dL [facility] Comment: Supplemental ranges: <140 mg/dL before meals <180 mg/dL all other times of the day Blood 03/06/2024 11:3 8 AM EDT 03/06/2024 11:38 AM EDT Rudi Henrandez MD POINT OF CARE TEST O RDERAVANNESSA [facility] [place] [address] * POCT Glucose (03/06/2024 8:07 AM EDT) Glucose, POC 172 65 - 199 mg/dL [facility] Comment: Supplemental ranges: <140 mg/dL before meals <180 mg/dL all other times of the day Blood 03/06/2024 8:07 AM EDT 03/06/2024 8:07 AM EDT Rudi Hernandez MD POINT OF CARE TEST O RDERABLES Performing Organization Address [facility] Co de Phone Number [facility] [place] [address] * EKG 12 Lead (03/06/2024 6:30 AM EDT) Ventricular rate 82 BPM MUSE SYSTEM Atrial Rate 82 BPM MUSE SYSTEM P-R Interval 164 ms MUSE SYSTEM QRS Duration 100 ms MUSE SYSTEM Q-T Interval 430 ms MUSE SYSTEM QTC Calculated (Bezet) 502 ms MUSE SYSTEM Calculated P [place] 49 degrees MUSE SYSTEM Calculated R [place] 63 degrees MUSE SYSTEM Calculated T [place] 7 degrees MUSE SYSTEM INTERPRETATION Normal sinus rhythm Prolonged QT Abnormal ECG No previous ECGs available Confirmed by MD Gomes Daniel ([id number]) on 03/07/2024 3:35:02 PM MUSE SYSTEM 03/06/2024 6:30 AM EDT 03/07/2024 3:35 PM EDT Rudi Hernandez MD ECG ORDERABLES Performing Organization Address [facility] Phone Number MUSE SYSTEM * XR Abdomen Flat & Upright (03/06/2024 5:29 AM EDT) WORKSTATION ID [id number] [facility] Anatomical Region Laterality Modality Abdomen N/A Digital [...] ? Electronically signed by: Jenelle Cervantes MD, [facility] ([phone]), at 03/06/2024 8:15 AM Narrative 03/06/2024 8:15 [...] * POCT Glucose (03/06/2024 4:39 AM EDT) Glucose, POC 163 65 - 199 mg/dL [facility] Comment: Supplemental ranges: <140 mg/dL before meals <180 mg/dL all other times of the day Blood 03/06/2024 4:39 AM EDT 03/06/2024 4:39 AM EDT Rudi Hernandez MD POINT OF CARE TEST O RDERABLES Performing Organization Address City/State/[facility] Co de Phone Number [facility] [place] [address] * Differential, Automated (03/06/2024 4:09 AM EDT) [facility] Neutrophil % 73.7 % [facility] Neutrophil Absolute 5.52 1.70 - 6.10 x10(3)/[facility] Lymph % 16.4 % [facility] Lymphocytes Abs 1.2 0.9 - 3.2 x10(3)/[facility] Monocyte % 6.8 % [facility] Monocyte Abs 0.5 0.3 - 0.9 x10(3)/[facility] Eos % 2.3 % [facility] Eosinophils Abs 0.2 0.0 - 0.4 x10(3)/[facility] Basophil % 0.5 % [facility] Baso Absolute 0.0 0.0 - 0.1 x10(3)/[facility] Immature Gran % 0.30 % [facility] Comment: Immature granulocytes(IG's)percentage and absolute count will include metamyelocytes, myelocytes, and promyelocytes. Blood smears from CBCs yielding IG's will be scanned manually for concordance. If this scan disagrees with the automated IG or if promyelocytes are noted, a manual differential will be performed. Immature Gran Absolute 0.02 0.00 - 0.04 x10(3)/mcL [facility] Blood 03/06/2024 4:09 AM EDT 03/06/2024 4:29 AM EDT Narrative Resulting Agency Comment Spec In Lab Latonia Red MD HEMATOLOGY ORDERABLE S [facility] [place] [address] * (ABNORMAL) Hemogram (03/06/2024 4:09 AM EDT) White Blood Cell 7.5 4.0 - 9.5 x10(3)/[facility] Red Blood Cell 4.98 4.58 - 5.54 x10(6)/[facility] Hemoglobin 12.1(L) 13.7 - 16.5 g/dL [facility] Hematocrit 38.4(L) 40.5 - 48.5 % [facility] Mean Cell Volume 77.1(L) 82.9 - 93.[address] [facility] Mean Cell Hemoglobin 24.3(L) 27.5 - 32.[address] [facility] Mean Cell Hemoglobin Concentration 31.5(L) 32.0 - 35.7 g/dL [facility] Platelet 220 145 - 357 x10(3)/[facility] RDW Standard Deviation 41.1 36.0 - 45.0 [facility] RDW coefficient of variation 14.8(H) 11.4 - 13.8 % [facility] Mean Platelet Volume 10.5 7.6 - 12.9 [facility] NRBC% auto 0.0 % [facility] NRBC Absolute 0.000 0.000 - 0.000 x10(3)/mc L [facility] Blood 03/06/2024 4:09 AM EDT 03/06/2024 4:29 AM EDT Narrative Resulting Agency Comment Spec In Lab Latonia Red MD HEMATOLOGY ORDERABLE S [facility] [place] [address] * (ABNORMAL) Comprehensive metabolic panel (non-fasting) (03/06/2024 4:09 AM EDT) Glucose 169 65 - 199 mg/dL [facility] Comment:Diabetes: >=200 mg/d L plus symptoms Blood Urea Nitrogen 6(L) 10 - 20 mg/dL [facility] Creatinine 0.70(L) 0.80 - 1.50 mg/dL [facility] Sodium 135 135 - 145 mmol/L [facility] Potassium 3.4(L) 3.5 - 5.0 mmol/L [facility] Comment: Please note: ??Patients with WBC >100,000 may have falsely elevated Potassium levels. ??For accurate Potassium quantification in these patients send serum separator tube (gold top) for subsequent determinations. ??Contact the Clinical Chemistry Laboratory if there are any questions. Chloride 98 98 - 107 mmol/L [facility] Carbon Dioxide 27 22 - 31 mmol/L [facility] Anion Gap 10 5 - 15 mmol/L [facility] Calcium 8.6 8.5 - 10.5 mg/dL [facility] Protein, Total 5.9(L) 6.1 - 8.0 g/dL [facility] Albumin 3.1(L) 3.2 - 5.2 g/dL [facility] Aspartate Aminotransferase 12 0 - 39 unit/L [facility] Alanine Aminotransferase 36 0 - 55 unit/L [facility] Alkaline Phosphatase 86 40 - 130 unit/L [facility] Bilirubin, Total 0.4 0.2 - 1.3 mg/dL [facility] Est Glomerular Filtration Rate 113 >=60 mL/min/1. 73 m?? [facility] Comment: This patient's estimated GFR [...] MD CHEMISTRY ORDERABLES Performing Organization Address City/[facility]/ZIP Co de Phone Number [facility] [place] [address] * POCT Glucose (03/05/2024 11:13 PM EDT) Glucose, POC 151 65 - 199 mg/dL [facility] Comment: Supplemental ranges: <140 mg/dL before meals <180 mg/dL all other times of the day Blood 03/05/2024 11:1 3 PM EDT 03/05/2024 11:13 PM EDT Rudi Hernandez MD POINT OF CARE TEST O RDERABLES [facility] [place] [address] * POCT Glucose (03/05/2024 7:29 PM EDT) Glucose, POC 160 65 - 199 mg/dL [facility] Comment: Supplemental ranges: <140 mg/dL before meals <180 mg/dL all other times of the day Blood 03/05/2024 7:29 PM EDT 03/05/2024 7:29 PM EDT Rudi Hernandez MD POINT OF CARE TEST O RDERABLES Performing Organization Address City/[facility]/ZIP Co de Phone Number [facility] [place] [address] * POCT Glucose (03/05/2024 4:40 PM EDT) Glucose, POC 141 65 - 199 mg/dL [facility] Comment: Supplemental ranges: <140 mg/dL before meals <180 mg/dL all other times of the day Blood 03/05/2024 4:40 PM EDT 03/05/2024 4:40 PM EDT Rudi Hernandez MD POINT OF CARE TEST O RDERABLES Performing Organization Address [facility] Phone Number [facility] [place] [address] * Amylase Level Body Fluid BASIA Drain (03/05/2024 11:20 AM EDT) Amylase, Fluid 32 unit/L [facility] Comment: Reference intervals are unavailable for this test in body fluids. Comparison of this result with the concentration in blood, serum, or plasma is recommended. This test has not been cleared by the [place] FDA. Performance characteristics of this test for the analysis of body fluids were determined by [facility] in accordance with CLIA requirements. This laboratory is qualified under CLIA to perform high-complexity testing. Amylase BF Type BASIA Drain [facility] BASIA Drain 03/05/2024 11:2 0 AM EDT 03/05/2024 11:37 AM EDT Narrative Resulting Agency Comment Spec In Lab Rudi Hernandez MD BODY FLUIDS AND STOO LS ORDERABLES Performing Organization Address [facility] Co de Phone Number [facility] [place] [address] * POCT Glucose (03/05/2024 11:14 AM EDT) Glucose, POC 180 65 - 199 mg/dL [facility] Comment: Supplemental ranges: <140 mg/dL before meals <180 mg/dL all other times of the day Blood 03/05/2024 11:1 4 AM EDT 03/05/2024 11:14 AM EDT Rudi Hernandez MD POINT OF CARE TEST O ELKIN [facility] [place] [address] * POCT Glucose (03/05/2024 7:47 AM EDT) Glucose, POC 180 65 - 199 mg/dL [facility] Comment: Supplemental ranges: <140 mg/dL before meals <180 mg/dL all other times of the day Blood 03/05/2024 7:47 AM EDT 03/05/2024 7:47 AM EDT Rudi Hernandez MD POINT OF CARE TEST O ELKIN Performing Organization Address City/[facility]/ZIP Co de Phone Number [facility] [place] [address] * POCT Glucose (03/05/2024 5:14 AM EDT) Glucose, POC 173 65 - 199 mg/dL [facility] Comment: Supplemental ranges: <140 mg/dL before meals <180 mg/dL all other times of the day Blood 03/05/2024 5:14 AM EDT 03/05/2024 5:14 AM EDT Rudi Hernandez MD POINT OF CARE TEST O ELKIN [facility] [place] [address] * (ABNORMAL) Differential, Automated (03/05/2024 4:21 AM EDT) Neutrophil % 75.2 % [facility] Neutrophil Absolute 6.45(H) 1.70 - 6.10 x10(3)/[facility] LAB[facility]AT[facility] Lymph % 13.8 % [facility] Lymphocytes Abs 1.2 0.9 - 3.2 x10(3)/[facility] Monocyte % 7.7 % [facility] Monocyte Abs 0.7 0.3 - 0.9 x10(3)/[facility] Eos % 2.3 % [facility] Eosinophils Abs 0.2 0.0 - 0.4 x10(3)/[facility] Basophil % 0.5 % [facility] Baso Absolute 0.0 0.0 - 0.1 x10(3)/[facility] Immature Gran % 0.50 % [facility] Comment: Immature granulocytes(IG's)percentage and absolute count will include metamyelocytes, myelocytes, and promyelocytes. Blood smears from CBCs yielding IG's will be scanned manually for concordance. If this scan disagrees with the automated IG or if promyelocytes are noted, a manual differential will be performed. Immature Gran Absolute 0.04 0.00 - 0.04 x10(3)/[facility] Blood 03/05/2024 4:21 AM EDT 03/05/2024 4:39 AM EDT Narrative Resulting Agency Comment Spec In Lab Latonia Red MD HEMATOLOGY ORDERABLE S [facility] [place] [address] * (ABNORMAL) Hemogram (03/05/2024 4:21 AM EDT) Pathologist [facility] White Blood Cell 8.6 4.0 - 9.5 x10(3)/[facility] Red Blood Cell 4.62 4.58 - 5.54 x10(6)/mc L [facility] Hemoglobin 11.5(L) 13.7 - 16.5 g/dL [facility] Hematocrit 36.5(L) 40.5 - 48.5 % [facility] Mean Cell Volume 79.0(L) 82.9 - 93.[address] [facility] Mean Cell Hemoglobin 24.9(L) 27.5 - 32.[address] [facility] Mean Cell Hemoglobin Concentration 31.5(L) 32.0 - 35.7 g/dL [facility] Platelet 165 145 - 357 x10(3)/mc L [facility] RDW Standard Deviation 43.4 36.0 - 45.0 [facility] RDW coefficient of variation 15.1(H) 11.4 - 13.8 % [facility] Mean Platelet Volume 10.7 7.6 - 12.9 [facility] NRBC% auto 0.0 % [facility] NRBC Absolute 0.000 0.000 - 0.000 x10(3)/ L [facility] Blood 03/05/2024 4:21 AM EDT 03/05/2024 4:39 AM EDT Narrative Resulting Agency Comment Spec In Lab Latonia Red MD HEMATOLOGY ORDERABLE S [facility] [place] [address] * (ABNORMAL) Comprehensive metabolic panel (non-fasting) (03/05/2024 4:21 AM EDT) Glucose 182 65 - 199 mg/dL [facility] Comment:Diabetes: >=200 mg/d L plus symptoms Blood Urea Nitrogen 6(L) 10 - 20 mg/dL [facility] Creatinine 0.80 0.80 - 1.50 mg/dL [facility] Sodium 135 135 - 145 mmol/L [facility] Potassium 3.3(L) 3.5 - 5.0 mmol/L [facility] Comment: Please note: ??Patients with WBC >100,000 may have falsely elevated Potassium levels. ??For accurate Potassium quantification in these patients send serum separator tube (gold top) for subsequent determinations. ??Contact the Clinical Chemistry Laboratory if there are any questions. Chloride 100 98 - 107 mmol/L [facility] Carbon Dioxide 26 22 - 31 mmol/L [facility] Anion Gap 9 5 - 15 mmol/L [facility] Calcium 8.1(L) 8.5 - 10.5 mg/dL [facility] Protein, Total 5.6(L) 6.1 - 8.0 g/dL [facility] Albumin 2.9(L) 3.2 - 5.2 g/dL [facility] Aspartate Aminotransferase 14 0 - 39 unit/L [facility] Alanine Aminotransferase 45 0 - 55 unit/L [facility] Alkaline Phosphatase 79 40 - 130 unit/L [facility] Bilirubin, Total 0.4 0.2 - 1.3 mg/dL [facility] Est Glomerular Filtration Rate 108 >=60 mL/min/1. 73 m?? [facility] Comment: This patient's estimated GFR [...] In Lab Rudi Hernandez MD CHEMISTRY ORDERABLES [facility] [place] [address] * POCT Glucose (03/05/2024 12:28 AM EDT) Glucose, POC 166 65 - 199 mg/dL [facility] Comment: Supplemental ranges: <140 mg/dL before meals <180 mg/dL all other times of the day Blood 03/05/2024 12:2 8 AM EDT 03/05/2024 12:28 AM EDT Rudi Hernandez MD POINT OF CARE TEST O RDERAVANNESSA [facility] [place] [address] * POCT Glucose (03/04/2024 8:02 PM EDT) Glucose, POC 174 65 - 199 mg/dL [facility] Comment: Supplemental ranges: <140 mg/dL before meals <180 mg/dL all other times of the day Blood 03/04/2024 8:02 PM EDT 03/04/2024 8:02 PM EDT Rudi Hernandez MD POINT OF CARE TEST O RDERAVANNESSA [facility] [place] [address] * POCT Glucose (03/04/2024 4:18 PM EDT) Glucose, POC 174 65 - 199 mg/dL [facility] Comment: Supplemental ranges: <140 mg/dL before meals <180 mg/dL all other times of the day Blood 03/04/2024 4:18 PM EDT 03/04/2024 4:18 PM EDT Rudi Hernandez MD POINT OF CARE TEST O RDERABLES [facility] [place] [address] * POCT Glucose (03/04/2024 11:34 AM EDT) Glucose, POC 173 65 - 199 mg/dL [facility] Comment: Supplemental ranges: <140 mg/dL before meals <180 mg/dL all other times of the day Blood 03/04/2024 11:3 4 AM EDT 03/04/2024 11:34 AM EDT Rudi Hernandez MD POINT OF CARE TEST O ELKIN Performing Organization Address [facility]/ZIP Co de Phone Number [facility] [place] [address] * POCT Glucose (03/04/2024 7:30 AM EDT) Glucose, POC 185 65 - 199 mg/dL [facility] Comment: Supplemental ranges: <140 mg/dL before meals <180 mg/dL all other times of the day Blood 03/04/2024 7:30 AM EDT 03/04/2024 7:30 AM EDT Rudi Hernandez MD POINT OF CARE TEST O ELKIN Performing Organization Address City/[facility]/ZIP Co de Phone Number [facility] [place] [address] * (ABNORMAL) Differential, Automated (03/04/2024 6:12 AM EDT) Neutrophil % 85.5 % [facility] Neutrophil Absolute 9.96(H) 1.70 - 6.10 x10(3)/mc L [facility] Lymph % 7.7 % [facility] Lymphocytes Abs 0.9 0.9 - 3.2 x10(3)/mc L [facility] Monocyte % 5.3 % [facility] Monocyte Abs 0.6 0.3 - 0.9 x10(3)/mc L [facility] Eos % 0.7 % [facility] Eosinophils Abs 0.1 0.0 - 0.4 x10(3)/[facility] LABORATORY Basophil % 0.3 % [facility] Baso Absolute 0.0 0.0 - 0.1 x10(3)/[facility] LAB[facility] Immature Gran % 0.50 % [facility] Comment: Immature granulocytes(IG's)percentage and absolute count will include metamyelocytes, myelocytes, and promyelocytes. Blood smears from CBCs yielding IG's will be scanned manually for concordance. If this scan disagrees with the automated IG or if promyelocytes are noted, a manual differential will be performed. Immature Gran Absolute 0.06(H) 0.00 - 0.04 x10(3)/[facility] LAB[facility] Blood 03/04/2024 6:12 AM EDT 03/04/2024 6:53 AM EDT Narrative Resulting Agency Comment Spec In Lab Latonia Red MD HEMATOLOGY ORDERABLE S [facility] [place] [address] * (ABNORMAL) Hemogram (03/04/2024 6:12 AM EDT) White Blood Cell 11.6(H) 4.0 - 9.5 x10(3)/[facility] Red Blood Cell 4.72 4.58 - 5.54 x10(6)/[facility] Hemoglobin 11.7(L) 13.7 - 16.5 g/dL [facility] Hematocrit 37.1(L) 40.5 - 48.5 % [facility] Mean Cell Volume 78.6(L) 82.9 - 93.[address] [facility] Mean Cell Hemoglobin 24.8(L) 27.5 - 32.[address] [facility] Mean Cell Hemoglobin Concentration 31.5(L) 32.0 - 35.7 g/dL [facility] Platelet 165 145 - 357 x10(3)/ L [facility] RDW Standard Deviation 44.1 36.0 - 45.[address] [facility] RDW coefficient of variation 15.3(H) 11.4 - 13.8 % [facility] Mean Platelet Volume 10.7 7.6 - 12.[address] [facility] NRBC% auto 0.0 % [facility] NRBC Absolute 0.000 0.000 - 0.000 x10(3)/mc L [facility] Blood 03/04/2024 6:12 AM EDT 03/04/2024 6:53 AM EDT Narrative Resulting Agency Comment Spec In Lab Latonia Red MD HEMATOLOGY ORDERABLE S [facility] [place] [address] * (ABNORMAL) Comprehensive metabolic panel (non-fasting) (03/04/2024 6:12 AM EDT) Glucose 204(H) 65 - 199 mg/dL [facility] Comment:Diabetes: >=200 mg/d L plus symptoms Blood Urea Nitrogen 8(L) 10 - 20 mg/dL [facility] Creatinine 0.76(L) 0.80 - 1.50 mg/dL [facility] Sodium 135 135 - 145 mmol/L [facility] Potassium 3.5 3.5 - 5.0 mmol/L [facility] Comment: Please note: ??Patients with WBC >100,000 may have falsely elevated Potassium levels. ??For accurate Potassium quantification in these patients send serum separator tube (gold top) for subsequent determinations. ??Contact the Clinical Chemistry Laboratory if there are any questions. Chloride 100 98 - 107 mmol/L [facility] Carbon Dioxide 25 22 - 31 mmol/L [facility] Anion Gap 10 5 - 15 mmol/L [facility] Calcium 8.3(L) 8.5 - 10.5 mg/dL [facility] Protein, Total 5.6(L) 6.1 - 8.0 g/dL [facility] Albumin 3.0(L) 3.2 - 5.2 g/dL [facility] Aspartate Aminotransferase 19 0 - 39 unit/L [facility] Alanine Aminotransferase 68(H) 0 - 55 unit/L [facility] Alkaline Phosphatase 84 40 - 130 unit/L [facility] Bilirubin, Total 0.4 0.2 - 1.3 mg/dL [facility] Est Glomerular Filtration Rate 110 >=60 mL/min/1. 73 m?? [facility] Comment: This patient's estimated GFR [...] Hernandez MD CHEMISTRY ORDERABLES Performing Organization Address City/State/[facility] Co de Phone Number [facility] [place] [address] * Amylase Level Body Fluid BASIA Drain (03/04/2024 5:30 AM EDT) Amylase, Fluid 395 unit/L [facility] Comment: Reference intervals are unavailable for this test in body fluids. Comparison of this result with the concentration in blood, serum, or plasma is recommended. This test has not been cleared by the [place] FDA. Performance characteristics of this test for the analysis of body fluids were determined by [facility] in accordance with CLIA requirements. This laboratory is qualified under CLIA to perform high-complexity testing. Amylase BF Type BASIA Drain [facility] BASIA Drain 03/04/2024 5:30 AM EDT 03/04/2024 5:41 AM EDT Narrative Resulting Agency Comment Spec In Lab Rudi Hernandez MD BODY FLUIDS AND STOO LS ORDERABLES [facility] [place] [address] * POCT Glucose (03/04/2024 5:15 AM EDT) Glucose, POC 171 65 - 199 mg/dL [facility] Comment: Supplemental ranges: <140 mg/dL before meals <180 mg/dL all other times of the day Blood 03/04/2024 5:15 AM EDT 03/04/2024 5:15 AM EDT Rudi Hernandez MD POINT OF CARE TEST O RDERABLES Performing Organization Address City/[facility]/ZIP Co de Phone Number [facility] [place] [address] * POCT Glucose (03/03/2024 11:19 PM EDT) Glucose, POC 181 65 - 199 mg/dL [facility] Comment: Supplemental ranges: <140 mg/dL before meals <180 mg/dL all other times of the day Blood 03/03/2024 11:1 9 PM EDT 03/03/2024 11:19 PM EDT Rudi Hernandez MD POINT OF CARE TEST O RDERABLES [facility] [place] [address] * POCT Glucose (03/03/2024 8:31 PM EDT) Glucose, POC 181 65 - 199 mg/dL [facility] Comment: Supplemental ranges: <140 mg/dL before meals <180 mg/dL all other times of the day Blood 03/03/2024 8:31 PM EDT 03/03/2024 8:31 PM EDT Rudi Hernandez MD POINT OF CARE TEST O ELKIN Performing Organization Address [facility] Co de Phone Number [facility] [place] [address] * POCT Glucose (03/03/2024 3:59 PM EDT) Glucose, POC 174 65 - 199 mg/dL [facility] Comment: Supplemental ranges: <140 mg/dL before meals <180 mg/dL all other times of the day Blood 03/03/2024 3:59 PM EDT 03/03/2024 3:59 PM EDT Rudi Hernandez MD POINT OF CARE TEST O ELKIN Performing Organization Address [facility]/ZIP Co de Phone Number [facility] [place] [address] * (ABNORMAL) Basic Metabolic Panel (non-fasting) (03/03/2024 1:13 PM EDT) Glucose 175 65 - 199 mg/dL [facility] Comment:Diabetes: >=200 mg/d L plus symptoms Blood Urea Nitrogen 11 10 - 20 mg/dL [facility] Creatinine 0.79(L) 0.80 - 1.50 mg/dL [facility] Sodium 137 135 - 145 mmol/L [facility] Potassium 3.6 3.5 - 5.0 mmol/L [facility] Comment: Please note: ??Patients with WBC >100,000 may have falsely elevated Potassium levels. ??For accurate Potassium quantification in these patients send serum separator tube (gold top) for subsequent determinations. ??Contact the Clinical Chemistry Laboratory if there are any questions. Chloride 103 98 - 107 mmol/L [facility] Carbon Dioxide 25 22 - 31 mmol/L [facility] Anion Gap 9 5 - 15 mmol/L [facility] Calcium 8.2(L) 8.5 - 10.5 mg/dL [facility] Est Glomerular Filtration Rate 109 >=60 mL/min/1. 73 m?? [facility] Comment: This patient's estimated GFR [...] MD CHEMISTRY ORDERABLES Performing Organization Address City/[facility]/ZIP Co de Phone Number [facility] [place] [address] * POCT Glucose (03/03/2024 12:20 PM EDT) Glucose, POC 156 65 - 199 mg/dL [facility] Comment: Supplemental ranges: <140 mg/dL before meals <180 mg/dL all other times of the day Blood 03/03/2024 12:2 0 PM EDT 03/03/2024 12:20 PM EDT Rudi Hernandez MD POINT OF CARE TEST O RDERABLES Performing Organization Address City/[facility]/ZIP Co de Phone Number [facility] [place] [address] * Amylase Level Body Fluid (03/03/2024 11:40 AM EDT) Amylase, Fluid 645 unit/L [facility] Comment: Reference intervals are unavailable for this test in body fluids. Comparison of this result with the concentration in blood, serum, or plasma is recommended. This test has not been cleared by the [place] FDA. Performance characteristics of this test for the analysis of body fluids were determined by [facility] in accordance with CLIA requirements. This laboratory is qualified under CLIA to perform high-complexity testing. Amylase BF Type BASIA Drain [facility] BASIA Drain Other / Unknown 03/03/2024 1 1:40 AM EDT 03/03/2024 11:50 AM EDT Narrative Resulting Agency Comment Spec In Lab Latonia Red MD BODY FLUIDS AND STOO LS ORDERABLES Performing Organization Address [facility]/ZIP Co de Phone Number [facility] [place] [address] * POCT Glucose (03/03/2024 8:08 AM EDT) Glucose, POC 166 65 - 199 mg/dL [facility] Comment: Supplemental ranges: <140 mg/dL before meals <180 mg/dL all other times of the day Blood 03/03/2024 8:08 AM EDT 03/03/2024 8:08 AM EDT Rudi Hernandez MD POINT OF CARE TEST O RDERABLES Performing Organization Address [facility] Co de Phone Number [facility] [place] [address] * POCT Glucose (03/03/2024 3:57 AM EDT) Glucose, POC 159 65 - 199 mg/dL [facility] Comment: Supplemental ranges: <140 mg/dL before meals <180 mg/dL all other times of the day Blood 03/03/2024 3:57 AM EDT 03/03/2024 3:57 AM EDT Rudi Hernandez MD POINT OF CARE TEST O RDERABLES Performing Organization Address City/[facility]/ZIP Co de Phone Number [facility] [place] [address] * Creatinine, urine, random (03/03/2024 1:19 AM EDT) Creatinine, Urine 288 mg/dL [facility] Urine 03/03/2024 1:19 AM EDT 03/03/2024 1:28 AM EDT Narrative Resulting Agency Comment Spec In Lab Rudi Hernandez MD URINE ORDERABLES [facility] [place] [address] * Sodium, urine, random (03/03/2024 1:19 AM EDT) Sodium, Urine <20 mmol/L [facility] Urine 03/03/2024 1:19 AM EDT 03/03/2024 1:28 AM EDT Narrative Resulting Agency Comment Spec In Lab Rudi Hernandez MD URINE ORDERABLES Performing Organization Address City/[facility]/ZIP Co de Phone Number [facility] [place] [address] * Green Tube HOLD (03/03/2024 1:04 AM EDT) Green Hold Sample in lab. [facility] Blood Venous Draw / Unknown 03/03/2024 1:04 AM EDT 03/03/2024 1:12 AM EDT Latonia Red MD CHEMISTRY ORDERABLES [facility] [place] [address] * (ABNORMAL) Differential, Automated (03/03/2024 1:04 AM EDT) Neutrophil % 85.5 % [facility] Neutrophil Absolute 13.27(H) 1.70 - 6.10 x10(3)/mc L [facility] Lymph % 7.5 % [facility] Lymphocytes Abs 1.2 0.9 - 3.2 x10(3)/[facility] Monocyte % 6.0 % [facility] Monocyte Abs 0.9 0.3 - 0.9 x10(3)/[facility] Eos % 0.2 % [facility] Eosinophils Abs 0.0 0.0 - 0.4 x10(3)/[facility] Basophil % 0.2 % [facility] Baso Absolute 0.0 0.0 - 0.1 x10(3)/[facility] Immature Gran % 0.60 % [facility] Comment: Immature granulocytes(IG's)percentage and absolute count will include metamyelocytes, myelocytes, and promyelocytes. Blood smears from CBCs yielding IG's will be scanned manually for concordance. If this scan disagrees with the automated IG or if promyelocytes are noted, a manual differential will be performed. Immature Gran Absolute 0.10(H) 0.00 - 0.04 x10(3)/[facility] Blood 03/03/2024 1:04 AM EDT 03/03/2024 1:11 AM EDT Narrative Resulting Agency Comment Spec In Lab Kamryn Kim MD HEMATOLOGY ORDERA BLES Performing Organization Address City/State/[facility] Co de Phone Number [facility] [place] [address] * (ABNORMAL) Hemogram (03/03/2024 1:04 AM EDT) White Blood Cell 15.5(H) 4.0 - 9.5 x10(3)/[facility] Red Blood Cell 4.81 4.58 - 5.54 x10(6)/[facility] Hemoglobin 11.7(L) 13.7 - 16.5 g/dL [facility] Hematocrit 37.2(L) 40.5 - 48.5 % [facility] Mean Cell Volume 77.3(L) 82.9 - 93.[address] [facility] Mean Cell Hemoglobin 24.3(L) 27.5 - 32.[address] [facility] Mean Cell Hemoglobin Concentration 31.5(L) 32.0 - 35.7 g/dL [facility] Platelet 169 145 - 357 x10(3)/mc L [facility] RDW Standard Deviation 43.7 36.0 - 45.0 [facility] RDW coefficient of variation 15.5(H) 11.4 - 13.8 % [facility] Mean Platelet Volume 10.9 7.6 - 12.9 [facility] NRBC% auto 0.0 % [facility] NRBC Absolute 0.000 0.000 - 0.000 x10(3)/mc L [facility] Blood 03/03/2024 1:04 AM EDT 03/03/2024 1:11 AM EDT Narrative Resulting Agency Comment Spec In Lab Kamryn Kim MD HEMATOLOGY ORDERA BLES [facility] [place] [address] * Lactate, whole blood, send to lab ([facility]) (03/03/2024 1:04 AM EDT) Lactate WB 1.5 0.5 - 2.2 mmol/L [facility] Blood 03/03/2024 1:04 AM EDT 03/03/2024 1:11 AM EDT Narrative Resulting Agency Comment Spec In Lab Rudi Hernandez MD CHEMISTRY ORDERABLES [facility] [place] [address] * (ABNORMAL) Phosphorus (03/03/2024 1:04 AM EDT) Phosphorus 2.2(L) 2.5 - 4.5 mg/dL [facility] Blood 03/03/2024 1:04 AM EDT 03/03/2024 1:11 AM EDT Narrative Resulting Agency Comment Spec In Lab Rudi Hernandez MD CHEMISTRY ORDERABLES Performing Organization Address [facility] Co de Phone Number [facility] [place] [address] * Magnesium (03/03/2024 1:04 AM EDT) Magnesium 0.78 0.69 - 1.07 mmol/L [facility] Blood 03/03/2024 1:04 AM EDT 03/03/2024 1:11 AM EDT Narrative Resulting Agency Comment Spec In Lab Rudi Hernandez MD CHEMISTRY ORDERABLES Performing Organization Address [facility] Co de Phone Number [facility] [place] [address] * (ABNORMAL) Comprehensive metabolic panel (non-fasting) (03/03/2024 1:04 AM EDT) Glucose 192 65 - 199 mg/dL [facility] Comment:Diabetes: >=200 mg/d L plus symptoms Blood Urea Nitrogen 16 10 - 20 mg/dL [facility] Creatinine 1.16 0.80 - 1.50 mg/dL [facility] Sodium 137 135 - 145 mmol/L [facility] Potassium 3.9 3.5 - 5.0 mmol/L [facility] Comment: result rechecked-RSG Please note: ??Patients with WBC >100,000 may have falsely elevated Potassium levels. ??For accurate Potassium quantification in these patients send serum separator tube (gold top) for subsequent determinations. ??Contact the Clinical Chemistry Laboratory if there are any questions. Chloride 101 98 - 107 mmol/L [facility] Carbon Dioxide 24 22 - 31 mmol/L [facility] Anion Gap 12 5 - 15 mmol/L [facility] Calcium 8.1(L) 8.5 - 10.5 mg/dL [facility] Protein, Total 5.3(L) 6.1 - 8.0 g/dL [facility] Albumin 2.9(L) 3.2 - 5.2 g/dL [facility] Aspartate Aminotransferase 64(H) 0 - 39 unit/L [facility] Alanine Aminotransferase 111(H) 0 - 55 unit/L [facility] Alkaline Phosphatase 83 40 - 130 unit/L [facility] Bilirubin, Total 0.6 0.2 - 1.3 mg/dL [facility] Est Glomerular Filtration Rate 77 >=60 mL/min/1. 73 m?? [facility] Comment: This patient's estimated GFR [...] In Lab Rudi Hernandez MD CHEMISTRY ORDERABLES [facility] [place] [address] * POCT Glucose (03/02/2024 10:59 PM EDT) Glucose, POC 181 65 - 199 mg/dL [facility] Comment: Supplemental ranges: <140 mg/dL before meals <180 mg/dL all other times of the day Blood 03/02/2024 10:5 9 PM EDT 03/02/2024 10:59 PM EDT Rudi Hernandez MD POINT OF CARE TEST O RDERABLES [facility] [place] [address] * XR Abdomen 1 view (Generic) (03/02/2024 9:54 PM EDT) WORKSTATION ID [id number] RAD Anatomical Region Laterality Modality Abdomen N/A [...] Glucose, POC 186 65 - 199 mg/dL [facility] Comment: Supplemental ranges: <140 mg/dL before meals <180 mg/dL all other times of the day Blood 03/02/2024 7:41 PM EDT 03/02/2024 7:41 PM EDT Rudi Hernandez MD POINT OF CARE TEST O RDERABLES [facility] [place] [address] * XR Abdomen 1 view (Generic) (03/02/2024 7:38 PM EDT) WORKSTATION ID [id number] RAD Anatomical Region Laterality Modality Abdomen N/A [...] your imaging first. ? 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 Electronically signed by: Atif Christine MD, [facility]([phone]), at 03/02/2024 7:41 PM Rudi Hernandez MD IMG DX ORDERABLES * POCT Glucose (03/02/2024 4:00 PM EDT) Glucose, POC 179 65 - 199 mg/dL [facility] Comment: Supplemental ranges: <140 mg/dL before meals <180 mg/dL all other times of the day Blood 03/02/2024 4:00 PM EDT 03/02/2024 4:00 PM EDT Rudi Hernandez MD POINT OF CARE TEST O ELKIN Performing Organization Address [facility] [place] [address] * POCT Glucose (03/02/2024 11:12 AM EDT) Glucose, POC 183 65 - 199 mg/dL [facility] Comment: Supplemental ranges: <140 mg/dL before meals <180 mg/dL all other times of the day Blood 03/02/2024 11:1 2 AM EDT 03/02/2024 11:12 AM EDT Rudi Hernandez MD POINT OF CARE TEST O ELKIN Performing Organization Address [facility] Co de Phone Number [facility] [place] [address] * POCT Glucose (03/02/2024 7:48 AM EDT) Glucose, POC 170 65 - 199 mg/dL [facility] Comment: Supplemental ranges: <140 mg/dL before meals <180 mg/dL all other times of the day Blood 03/02/2024 7:48 AM EDT 03/02/2024 7:48 AM EDT Rudi Hernandez MD POINT OF CARE TEST O RDERABLES [facility] [place] [address] * (ABNORMAL) Aspartate Aminotransferase (03/02/2024 5:27 AM EDT) [facility] Aspartate Aminotransferase 89(H) 0 - 39 unit/L [facility] Blood 03/02/2024 5:27 AM EDT 03/02/2024 6:06 AM EDT Narrative Resulting Agency Comment Spec In Lab Rudi Hernandez MD CHEMISTRY ORDERABLES Performing Organization Address City/[facility]/ZIP Co de Phone Number [facility] [place] [address] * (ABNORMAL) Hemoglobin A1c (03/02/2024 4:30 AM EDT) [facility] Hemoglobin A1c 8.9(H) 4.3 - 5.6 % [facility] Comment: Reference Range: 4.3 - [...] Mellitus, Diabetes Care 2013; 36: Suppl. 1, S64-58 Estimated Average Glucose 208 mg/dL [facility] Blood Venous Draw / Unknown 03/02/2024 4:30 AM EDT 03/02/2024 1:54 PM EDT Narrative Resulting Agency Comment Spec In Lab Munira Berry APRN CHEMISTRY ORDERABLES [facility] [place] [address] * (ABNORMAL) Differential, Automated (03/02/2024 4:30 AM EDT) Neutrophil % 84.4 % [facility] Neutrophil Absolute 10.79(H) 1.70 - 6.10 x10(3)/[facility] Lymph % 9.7 % [facility] Lymphocytes Abs 1.2 0.9 - 3.2 x10(3)/[facility] Monocyte % 5.1 % [facility] Monocyte Abs 0.6 0.3 - 0.9 x10(3)/[facility] Eos % 0.1 % [facility] Eosinophils Abs 0.0 0.0 - 0.4 x10(3)/[facility] Basophil % 0.2 % [facility] Baso Absolute 0.0 0.0 - 0.1 x10(3)/[facility] Immature Gran % 0.50 % [facility] Comment: Immature granulocytes(IG's)percentage and absolute count will include metamyelocytes, myelocytes, and promyelocytes. Blood smears from CBCs yielding IG's will be scanned manually for concordance. If this scan disagrees with the automated IG or if promyelocytes are noted, a manual differential will be performed. Immature Gran Absolute 0.06(H) 0.00 - 0.04 x10(3)/ L [facility] Blood 03/02/2024 4:30 AM EDT 03/02/2024 4:36 AM EDT Narrative Resulting Agency Comment Spec In Lab Latonia Red MD HEMATOLOGY ORDERABLE S [facility] [place] [address] * (ABNORMAL) Hemogram (03/02/2024 4:30 AM EDT) White Blood Cell 12.8(H) 4.0 - 9.5 x10(3)/mc L [facility] Red Blood Cell 5.41 4.58 - 5.54 x10(6)/mc L [facility] Hemoglobin 13.3(L) 13.7 - 16.5 g/dL [facility] Hematocrit 41.9 40.5 - 48.5 % [facility] Mean Cell Volume 77.4(L) 82.9 - 93.[address] [facility] Mean Cell Hemoglobin 24.6(L) 27.5 - 32.[address] [facility] Mean Cell Hemoglobin Concentration 31.7(L) 32.0 - 35.7 g/dL [facility] Platelet 205 145 - 357 x10(3)/mc L [facility] RDW Standard Deviation 41.8 36.0 - 45.[address] [facility] RDW coefficient of variation 15.2(H) 11.4 - 13.8 % [facility] Mean Platelet Volume 11.2 7.6 - 12.[address] [facility] NRBC% auto 0.0 % [facility] NRBC Absolute 0.000 0.000 - 0.000 x10(3)/mc L [facility] Blood 03/02/2024 4:30 AM EDT 03/02/2024 4:36 AM EDT Narrative Resulting Agency Comment Spec In Lab Latonia Red MD HEMATOLOGY ORDERABLE S [facility] [place] [address] * (ABNORMAL) Comprehensive metabolic panel (non-fasting) (03/02/2024 4:30 AM EDT) Glucose 199 65 - 199 mg/dL [facility] Comment:Diabetes: >=200 mg/d L plus symptoms Blood Urea Nitrogen 11 10 - 20 mg/dL [facility] Creatinine 0.80 0.80 - 1.50 mg/dL [facility] Sodium 135 135 - 145 mmol/L [facility] Potassium 5.0 3.5 - 5.0 mmol/L [facility] Comment: Please note: ??Patients with WBC >100,000 may have falsely elevated Potassium levels. ??For accurate Potassium quantification in these patients send serum separator tube (gold top) for subsequent determinations. ??Contact the Clinical Chemistry Laboratory if there are any questions. Chloride 103 98 - 107 mmol/L [facility] Carbon Dioxide 24 22 - 31 mmol/L [facility] Anion Gap 8 5 - 15 mmol/L [facility] Calcium 7.9(L) 8.5 - 10.5 mg/dL [facility] Protein, Total 5.4(L) 6.1 - 8.0 g/dL [facility] Albumin 2.8(L) 3.2 - 5.2 g/dL [facility] Aspartate Aminotransferase Not Perf 0 - 39 [facility] Comment: Unable to quantitate due to sample hemolysis. ??Sample redraw suggested. Called by: mg, Read back by: Angelita Ingram, Date/Time:03/02/24 05:18. Alanine Aminotransferase 128(H) 0 - 55 unit/L [facility] Alkaline Phosphatase 97 40 - 130 unit/L [facility] Bilirubin, Total 0.9 0.2 - 1.3 mg/dL [facility] Est Glomerular Filtration Rate 108 >=60 mL/min/1. 73 m?? [facility] Comment: This patient's estimated GFR [...] In Lab Rudi Hernandez MD CHEMISTRY ORDERABLES [facility] [place] [address] * POCT Glucose (03/02/2024 4:26 AM EDT) Glucose, POC 172 65 - 199 mg/dL [facility] Comment: Supplemental ranges: <140 mg/dL before meals <180 mg/dL all other times of the day Blood 03/02/2024 4:26 AM EDT 03/02/2024 4:26 AM EDT Rudi Hernandez MD POINT OF CARE TEST O RDERABLES Performing Organization Address City/[facility]/ZIP Co de Phone Number [facility] [place] [address] * POCT Glucose (03/02/2024 12:12 AM EDT) Glucose, POC 190 65 - 199 mg/dL [facility] Comment: Supplemental ranges: <140 mg/dL before meals <180 mg/dL all other times of the day Blood 03/02/2024 12:1 2 AM EDT 03/02/2024 12:12 AM EDT Rudi Hernandez MD POINT OF CARE TEST O RDERABLES [facility] [place] [address] * (ABNORMAL) POCT Glucose (03/01/2024 7:55 PM EDT) Glucose, POC 233(H) 65 - 199 mg/dL [facility] Comment: Supplemental ranges: <140 mg/dL before meals <180 mg/dL all other times of the day Blood 03/01/2024 7:55 PM EDT 03/01/2024 7:55 PM EDT Rudi Hernandez MD POINT OF CARE TEST O RDERABLES [facility] [place] [address] * (ABNORMAL) Differential, Automated (03/01/2024 7:02 PM EDT) [facility] Neutrophil % 91.5 % [facility] Neutrophil Absolute 14.04(H) 1.70 - 6.10 x10(3)/mc L [facility] Lymph % 3.7 % [facility] Lymphocytes Abs 0.6(L) 0.9 - 3.2 x10(3)/mc L [facility] Monocyte % 4.2 % [facility] Monocyte Abs 0.6 0.3 - 0.9 x10(3)/mc L [facility] Eos % 0.0 % [facility] Eosinophils Abs 0.0 0.0 - 0.4 x10(3)/mc L [facility] Basophil % 0.1 % [facility] Baso Absolute 0.0 0.0 - 0.1 x10(3)/mc L [facility] Immature Gran % 0.50 % [facility] Comment: Immature granulocytes(IG's)percentage and absolute count will include metamyelocytes, myelocytes, and promyelocytes. Blood smears from CBCs yielding IG's will be scanned manually for concordance. If this scan disagrees with the automated IG or if promyelocytes are noted, a manual differential will be performed. Immature Gran Absolute 0.07(H) 0.00 - 0.04 x10(3)/ L [facility] Blood 03/01/2024 7:02 PM EDT 03/01/2024 7:06 PM EDT Narrative Resulting Agency Comment Spec In Lab Latonia Red MD HEMATOLOGY ORDERABLE S [facility] [place] [address] * (ABNORMAL) Hemogram (03/01/2024 7:02 PM EDT) White Blood Cell 15.3(H) 4.0 - 9.5 x10(3)/[facility] Red Blood Cell 5.64(H) 4.58 - 5.54 x10(6)/[facility] Hemoglobin 14.1 13.7 - 16.5 g/dL [facility] Hematocrit 43.4 40.5 - 48.5 % [facility] Mean Cell Volume 77.0(L) 82.9 - 93.1 [facility] Mean Cell Hemoglobin 25.0(L) 27.5 - 32.[address] [facility] Mean Cell Hemoglobin Concentration 32.5 32.0 - 35.7 g/dL [facility] Platelet 218 145 - 357 x10(3)/[facility] RDW Standard Deviation 41.1 36.0 - 45.0 [facility] RDW coefficient of variation 14.8(H) 11.4 - 13.8 % [facility] Mean Platelet Volume 10.5 7.6 - 12.9 [facility] NRBC% auto 0.0 % [facility] NRBC Absolute 0.000 0.000 - 0.000 x10(3)/[facility] Blood 03/01/2024 7:02 PM EDT 03/01/2024 7:06 PM EDT Narrative Resulting Agency Comment Spec In Lab Latonia Red MD HEMATOLOGY ORDERABLE S [facility] [place] [address] * (ABNORMAL) Comprehensive metabolic panel (non-fasting) (03/01/2024 7:02 PM EDT) Glucose 216(H) 65 - 199 mg/dL [facility] Comment:Diabetes: >=200 mg/d L plus symptoms Blood Urea Nitrogen 9(L) 10 - 20 mg/dL [facility] Creatinine 0.80 0.80 - 1.50 mg/dL [facility] Sodium 135 135 - 145 mmol/L [facility] Potassium 4.9 3.5 - 5.0 mmol/L [facility] Comment: Please note: ??Patients with WBC >100,000 may have falsely elevated Potassium levels. ??For accurate Potassium quantification in these patients send serum separator tube (gold top) for subsequent determinations. ??Contact the Clinical Chemistry Laboratory if there are any questions. Chloride 103 98 - 107 mmol/L [facility] Carbon Dioxide 22 22 - 31 mmol/L [facility] Anion Gap 10 5 - 15 mmol/L [facility] Calcium 8.2(L) 8.5 - 10.5 mg/dL [facility] Protein, Total 5.7(L) 6.1 - 8.0 g/dL [facility] Albumin 3.3 3.2 - 5.2 g/dL [facility] Aspartate Aminotransferase 182(H) 0 - 39 unit/L [facility] Alanine Aminotransferase 148(H) 0 - 55 unit/L [facility] Alkaline Phosphatase 106 40 - 130 unit/L [facility] Bilirubin, Total 2.2(H) 0.2 - 1.3 mg/dL [facility] Est Glomerular Filtration Rate 108 >=60 mL/min/1. 73 m?? [facility] Comment: This patient's estimated GFR [...] Hernandez MD CHEMISTRY ORDERABLES Performing Organization Address [facility] Co de Phone Number [facility] [place] [address] * POCT Glucose (03/01/2024 6:44 PM EDT) Glucose, POC 156 65 - 199 mg/dL [facility] Comment: Supplemental ranges: <140 mg/dL before meals <180 mg/dL all other times of the day Blood 03/01/2024 6:44 PM EDT 03/01/2024 6:44 PM EDT Rudi Hernandez MD POINT OF CARE TEST O RDERABLES Performing Organization Address [facility]/ZIP Co de Phone Number [facility] [place] [address] * (ABNORMAL) BLOOD GAS 2 ARTERIAL (03/01/2024 5:49 PM EDT) pH, Arterial 7.40 7.35 - 7.45 [facility] PCO2, Arterial 35 35 - [address] [facility] PO2, Arterial 188(H) 85 - [address] [facility] Bicarbonate, Arterial 21.3 20.0 - 26.0 mmol/L [facility] Base Excess, Arterial -3.6(L) -3.0 - 3.0 mmol/L [facility] Hgb Blood Gas 14.6 13.7 - 16.5 g/dL [facility] Oxyhemoglobin, Arterial 97.8(H) 94.0 - 97.0 % [facility] Carboxyhemoglob in, Arterial 1.3 % [facility] Comment: Nonsmokers: 0.5-1.5% COHB Smokers: Variable, but usually less than 10% Toxic: 20-30% COHB Lethal: Greater than 60% COHB Methemoglobin, Arterial 0.3 <=1.5 % [facility] Na Whole Blood 131(L) 135 - 145 mmol/L [facility] K Whole Blood 4.3 3.5 - 5.0 mmol/L [facility] Comment: Please note: Patients with WBC >100,000 may have falsely elevated Potassium levels. Contact the Clinical Chemistry Laboratory if there are any questions. ICa Whole Blood 1.12(L) 1.15 - 1.33 mmol/L [facility] Comment: Note: ??Total bilirubin higher than 20 mg/dL may lead to falsely low ionized calcium. CL Whole Blood 102 98 - 107 mmol/L [facility] Gluc Whole Bld 162 65 - 199 mg/dL [facility] Comment:Diabetes: >=200 mg/d L plus symptoms. Lactate WB 2.2 0.5 - 2.2 mmol/L [facility] Blood 03/01/2024 5:49 PM EDT 03/01/2024 5:49 PM EDT Rudi Hernandez MD POINT OF CARE TEST O RDERABLES [facility] [place] [address] * POCT Glucose (03/01/2024 5:02 PM EDT) Glucose, POC 125 65 - 199 mg/dL [facility] Comment: Supplemental ranges: <140 mg/dL before meals <180 mg/dL all other times of the day Blood 03/01/2024 5:02 PM EDT 03/01/2024 5:02 PM EDT Rudi Hernandez MD POINT OF CARE TEST O RDERABLES Performing Organization Address City/[facility]/ZIP Co de Phone Number [facility] [place] [address] * POCT Glucose (03/01/2024 4:07 PM EDT) Glucose, POC 125 65 - 199 mg/dL [facility] Comment: Supplemental ranges: <140 mg/dL before meals <180 mg/dL all other times of the day Blood 03/01/2024 4:07 PM EDT 03/01/2024 4:07 PM EDT Rudi Hernandez MD POINT OF CARE TEST O ELKIN Performing Organization Address City/[facility]/ZIP Co de Phone Number [facility] [place] [address] * Specimen to Pathology (03/01/2024 3:40 PM EDT) AP Specimen 03/01/2024 3:40 PM EDT 03/01/2024 3:[address] [facility] - 03/01/2024 3:40 PM EDT Specimen requisition ordered. ??Separate Pathology report to follow Rudi Hernandez MD PATHOLOGY/CYTOLOGY O RDLIAT Performing Organization Address City/[facility]/ZIP Co de Phone Number [facility] [place] [address] * POCT Glucose (03/01/2024 2:58 PM EDT) Glucose, POC 150 65 - 199 mg/dL [facility] Comment: Supplemental ranges: <140 mg/dL before meals <180 mg/dL all other times of the day Blood 03/01/2024 2:58 PM EDT 03/01/2024 2:58 PM EDT Rudi Hernandez MD POINT OF CARE TEST O RDERABLES [facility] [address] [place] [address] * (ABNORMAL) BLOOD GAS 2 ARTERIAL (03/01/2024 2:58 PM EDT) pH, Arterial 7.41 7.35 - 7.45 [facility] PCO2, Arterial 39 35 - [address] [facility] PO2, Arterial 204(H) 85 - [address] [facility] Bicarbonate, Arterial 23.9 20.0 - 26.0 mmol/L [facility] Base Excess, Arterial -0.8 -3.0 - 3.0 mmol/L [facility] Hgb Blood Gas 14.5 13.7 - 16.5 g/dL [facility] Oxyhemoglobin, Arterial 98.0(H) 94.0 - 97.0 % [facility] Carboxyhemoglob in, Arterial 1.2 % [facility] Comment: Nonsmokers: 0.5-1.5% COHB Smokers: Variable, but usually less than 10% Toxic: 20-30% COHB Lethal: Greater than 60% COHB Methemoglobin, Arterial 0.3 <=1.5 % [facility] Na Whole Blood 135 135 - 145 mmol/L [facility] K Whole Blood 4.0 3.5 - 5.0 mmol/L [facility] Comment: Please note: Patients with WBC >100,000 may have falsely elevated Potassium levels. Contact the Clinical Chemistry Laboratory if there are any questions. ICa Whole Blood 1.10(L) 1.15 - 1.33 mmol/L [facility] Comment: Note: ??Total bilirubin higher than 20 mg/dL may lead to falsely low ionized calcium. CL Whole Blood 104 98 - 107 mmol/L [facility] Gluc Whole Bld 175 65 - 199 mg/dL [facility] Comment:Diabetes: >=200 mg/d L plus symptoms. Lactate WB 2.1 0.5 - 2.2 mmol/L [facility] Blood 03/01/2024 2:58 PM EDT 03/01/2024 2:58 PM EDT Rudi Hernandez MD POINT OF CARE TEST O ELKIN Performing Organization Address City/[facility]/ZIP Co de Phone Number [facility] [place] [address] * POCT Glucose (03/01/2024 2:02 PM EDT) Glucose, POC 147 65 - 199 mg/dL [facility] Comment: Supplemental ranges: <140 mg/dL before meals <180 mg/dL all other times of the day Blood 03/01/2024 2:02 PM EDT 03/01/2024 2:02 PM EDT Rudi Hernandez MD POINT OF CARE TEST O ELKIN Performing Organization Address [facility]/ZIP Co de Phone Number [facility] [place] [address] * POCT Glucose (03/01/2024 1:00 PM EDT) Glucose, POC 138 65 - 199 mg/dL [facility] Comment: Supplemental ranges: <140 mg/dL before meals <180 mg/dL all other times of the day Blood 03/01/2024 1:00 PM EDT 03/01/2024 1:00 PM EDT Rudi Hernandez MD POINT OF CARE TEST O ELKIN Performing Organization Address [facility] Co de Phone Number [facility] [place] [address] * Anaerobic Culture (03/01/2024 1:00 PM EDT) Anaerobic Culture No anaerobic organisms isolated [facility] Fluid 03/01/2024 1:00 PM EDT 03/01/2024 4:19 PM EDT Comment:Bile duct culture Narrative Resulting Agency Comment Spec In Lab Rudi Hernandez MD MICROBIOLOGY - GENER AL ORDERABLES Performing Organization Address [facility] Co de Phone Number [facility] [place] [address] * Body Fluid Culture, Aerobic (03/01/2024 1:00 PM EDT) Body Fluid Culture No growth [facility] Gram Stain Cytocentrifuge Gram Stain performed No Neutrophils seen. No microorganisms seen. [facility] Fluid 03/01/2024 1:00 PM EDT 03/01/2024 4:19 PM EDT Comment:Bile duct culture Narrative Resulting Agency Comment Spec In Lab Rudi Hernandez MD MICROBIOLOGY - GENER AL ORDERABLES Performing Organization Address [facility] Co de Phone Number [facility] [place] [address] * Specimen to Pathology (03/01/2024 12:50 PM EDT) AP Specimen 03/01/2024 12:5 0 PM EDT 03/01/2024 12:[address] [facility] - 03/01/2024 12:50 PM EDT Specimen requisition ordered. ??Separate Pathology report to follow Rudi Hernandez MD PATHOLOGY/CYTOLOGY O RDERABLES Performing Organization Address [facility] Co de Phone Number [facility] [place] [address] * POCT Glucose (03/01/2024 12:01 PM EDT) Glucose, POC 153 65 - 199 mg/dL [facility] Comment: Supplemental ranges: <140 mg/dL before meals <180 mg/dL all other times of the day Blood 03/01/2024 12:0 1 PM EDT 03/01/2024 12:01 PM EDT Rudi Hernandez MD POINT OF CARE TEST O RDERAVANNESSA Performing Organization Address City/[facility]/[place] [address] * Specimen to Pathology (03/01/2024 11:07 AM EDT) AP Specimen 03/01/2024 11:0 7 AM EDT 03/01/2024 11:[address] [facility] - 03/01/2024 11:07 AM EDT Specimen requisition ordered. ??Separate Pathology report to follow Rudi Hernandez MD PATHOLOGY/CYTOLOGY O ELKIN Performing Organization Address City/[facility] [place] [address] * (ABNORMAL) BLOOD GAS 2 ARTERIAL (03/01/2024 10:55 AM EDT) pH, Arterial 7.43 7.35 - 7.45 [facility] PCO2, Arterial 35 35 - [address] [facility] PO2, Arterial 182(H) 85 - [address] [facility] Bicarbonate, Arterial 22.9 20.0 - 26.0 mmol/L [facility] Base Excess, Arterial -1.4 -3.0 - 3.0 mmol/L [facility] Hgb Blood Gas 14.5 13.7 - 16.5 g/dL [facility] Oxyhemoglobin, Arterial 98.4(H) 94.0 - 97.0 % [facility] Carboxyhemoglob in, Arterial 0.5 % [facility] Comment: Nonsmokers: 0.5-1.5% COHB Smokers: Variable, but usually less than 10% Toxic: 20-30% COHB Lethal: Greater than 60% COHB Methemoglobin, Arterial 0.3 <=1.5 % [facility] Na Whole Blood 135 135 - 145 mmol/L [facility] K Whole Blood 4.1 3.5 - 5.0 mmol/L [facility] Comment: Please note: Patients with WBC >100,000 may have falsely elevated Potassium levels. Contact the Clinical Chemistry Laboratory if there are any questions. ICa Whole Blood 1.12(L) 1.15 - 1.33 mmol/L [facility] Comment: Note: ??Total bilirubin higher than 20 mg/dL may lead to falsely low ionized calcium. CL Whole Blood 102 98 - 107 mmol/L [facility] Gluc Whole Bld 198 65 - 199 mg/dL [facility] Comment:Diabetes: >=200 mg/d L plus symptoms. Lactate WB 2.0 0.5 - 2.2 mmol/L [facility] Blood 03/01/2024 10:5 5 AM EDT 03/01/2024 10:55 AM EDT Rudi Hernandez MD POINT OF CARE TEST O RDERABLES [facility] [place] [address] * Surgical Pathology Report (03/01/2024 10:49 AM EDT) Final Diagnosis [id number] ? Location: L4WD; 0404; B The signing [...] MD Verified: ??03/10/2024 16:41 ??Pathologist Performed at: ??-[facility] Dept. of Pathology, [place] [address] Sales Engineering Manager: Lee Sutton MD, AP, ??CLIA Certificate: [id number] SYNOPTIC Specimen ? Procedure: ??Pancreaticoduodene ctomy (Whipple [...] Category: ??pT3 ? pN Category: ??pN1 ? [facility] 2021 Q1 Release ADDITIONAL STUDIES Whole [...] is inked red. . SPECIMEN PROCESSING Sections/Processing: Oim Architect sections in 41 cassettes as follows: [...] 1.4 x 1.0 x 0.7 cm. Sections/Processing: Oim Architect sections to include the entire lymph node are submitted in 1 cassettes as follows: ?C1: ??Single quadrisected lymph node D - Labeled/Fixative: Common hepatic artery lymph node #2, fresh. Quantity/Size: Single, 1.2 x 1.2 x 0.7 cm. Tissue Description: Shi-pink lymph node with minimal attached adipose tissue Sections/Processing: Quadrisected and entirely submitted in 2 cassettes labeled D1-D2. ??jnr 03/10/2024 4:[address] [facility] LYMPH NODE SPECIMEN / Unknown 03/01/2024 10:49 AM EDT 03/01/2024 10:49 AM EDT PANCREATIC STRUCTURE / Unknown 03/01/2024 10:49 AM EDT 03/01/2024 10:49 AM EDT LYMPH NODE SPECIMEN / Unknown 03/01/2024 10:49 AM EDT 03/01/2024 10:49 AM EDT LYMPH NODE SPECIMEN / Unknown 03/01/2024 10:49 AM EDT 03/01/2024 10:49 AM EDT Rudi Hernandez MD PATHOLOGY/CYTOLOGY O RDERABLES [facility] [place] [address] * Specimen to Pathology (03/01/2024 10:49 AM EDT) AP Specimen 03/01/2024 10:4 9 AM EDT 03/01/2024 10:[address] [facility] - 03/01/2024 10:49 AM EDT Specimen requisition ordered. ??Separate Pathology report to follow Rudi Hernandez MD PATHOLOGY/CYTOLOGY O RDERABLES Performing Organization Address [facility] Co de Phone Number [facility] [place] [address] * POCT Glucose (03/01/2024 9:59 AM EDT) Pathologist [facility] Glucose, POC 178 65 - 199 mg/dL [facility] Comment: Supplemental ranges: <140 mg/dL before meals <180 mg/dL all other times of the day Blood 03/01/2024 9:59 AM EDT 03/01/2024 9:59 AM EDT Rudi Hernandez MD POINT OF CARE TEST O RDERABLES Performing Organization Address [facility] Co de Phone Number [facility] [place] [address] * Type and Screen Validity (03/01/2024 9:31 AM EDT) T&S only valid at [facility] Comment:This Type and Screen result is only valid at the [facility] Hospital Blood 03/01/2024 9:31 AM EDT 03/01/2024 9:31 AM EDT Narrative Resulting Agency Comment Spec In Lab Rudi Hernandez MD BLOOD BANK LAB ORDER DEDRA Performing Organization Address [facility]/ZIP Co de Phone Number [facility] [place] [address] * ABORH Recheck Status (03/01/2024 9:31 AM EDT) ABORH Recheck Order Order Placed [facility] ABORH Type Recheck Completed [facility] Blood 03/01/2024 9:31 AM EDT 03/01/2024 9:31 AM EDT Narrative Resulting Agency Comment Spec In Lab Rudi Hernandez MD BLOOD BANK LAB ORDER DEDRA Performing Organization Address City/[facility]/ZIP Co de Phone Number [facility] [place] [address] * Type and screen ([facility]/CGP/FABIOLA) (03/01/2024 9:31 AM EDT) [facility] ABORH Type A POSITIVE [facility] Patient BB History Not Found [facility] Expires at [id number] on: 03/04/2024 [facility] Ab Screen Interp Negative [facility] Blood 03/01/2024 9:31 AM EDT 03/01/2024 9:[address] [facility] - 03/01/2024 9:31 AM EDT This Type and Screen result is only valid at the [facility] Hospital Resulting Agency Comment Spec In Lab Rudi Hernandez MD BLOOD BANK LAB ORDER DEDRA Performing Organization Address City/[facility]/ZIP Co de Phone Number [facility] [place] [address] * (ABNORMAL) POCT Glucose (03/01/2024 9:14 AM EDT) [facility] Glucose, POC 211(H) 65 - 199 mg/dL [facility] Comment: Supplemental ranges: <140 mg/dL before meals <180 mg/dL all other times of the day Blood 03/01/2024 9:14 AM EDT 03/01/2024 9:14 AM EDT Rudi Hernandez MD POINT OF CARE TEST O RDERABLES [facility] [place] [address] * (ABNORMAL) BLOOD GAS 2 ARTERIAL (03/01/2024 8:39 AM EDT) pH, Arterial 7.38 7.35 - 7.45 [facility] PCO2, Arterial 37 35 - [address] [facility] PO2, Arterial 223(H) 85 - [address] [facility] Bicarbonate, Arterial 21.8 20.0 - 26.0 mmol/L [facility] Base Excess, Arterial -3.3(L) -3.0 - 3.0 mmol/L [facility] Hgb Blood Gas 13.3(L) 13.7 - 16.5 g/dL [facility] Oxyhemoglobin, Arterial 98.4(H) 94.0 - 97.0 % [facility] Carboxyhemoglob in, Arterial 0.9 % [facility] Comment: Nonsmokers: 0.5-1.5% COHB Smokers: Variable, but usually less than 10% Toxic: 20-30% COHB Lethal: Greater than 60% COHB Methemoglobin, Arterial 0.3 <=1.5 % [facility] Na Whole Blood 131(L) 135 - 145 mmol/L [facility] K Whole Blood 3.7 3.5 - 5.0 mmol/L [facility] Comment: Please note: Patients with WBC >100,000 may have falsely elevated Potassium levels. Contact the Clinical Chemistry Laboratory if there are any questions. ICa Whole Blood 1.10(L) 1.15 - 1.33 mmol/L [facility] Comment: Note: ??Total bilirubin higher than 20 mg/dL may lead to falsely low ionized calcium. CL Whole Blood 101 98 - 107 mmol/L [facility] Gluc Whole Bld 250(H) 65 - 199 mg/dL [facility] Comment:Diabetes: >=200 mg/d L plus symptoms. Lactate WB 1.1 0.5 - 2.2 mmol/L [facility] Blood 03/01/2024 8:39 AM EDT 03/01/2024 8:39 AM EDT Rudi Hernandez MD POINT OF CARE TEST O RDERABLES Performing Organization Address [facility]/ZIP Co de Phone Number [facility] [place] [address] * XR Fluoro No Rad <1Hr - OR Use (03/01/2024 7:45 AM EDT) Narrative Dicom, Auditing User - 03/01/2024 7:45 AM EDT This exam is auto-finalizing. No interpretation was done. Shyla Bird MD IMG FLUORO ORDE RABLES * (ABNORMAL) Creatinine (03/01/2024 7:04 AM EDT) Creatinine 0.77(L) 0.80 - 1.50 mg/dL [facility] Est Glomerular Filtration Rate 110 >=60 mL/min/1. 73 m?? [facility] Comment: This patient's estimated GFR [...] Hernandez MD CHEMISTRY ORDERABLES Performing Organization Address [facility]/ZIP Co de Phone Number [facility] [place] [address] * (ABNORMAL) POCT Glucose (03/01/2024 7:03 AM EDT) Glucose, POC 207(H) 65 - 199 mg/dL [facility] Comment: Supplemental ranges: <140 mg/dL before meals <180 mg/dL all other times of the day Blood 03/01/2024 7:03 AM EDT 03/01/2024 7:03 AM EDT Rudi Hernandez MD POINT OF CARE TEST O RDERABLES [facility] [address] [place] [address] documented in this encounter Visit Diagnoses Not [...] Dilma Dominique, GRETCHEN)1712 (Given - Provider: Dilma Dominique, GRETCHEN) 0000 (Given - Provider: Scotty Dela Cruz, GRETCHEN)0653 (Given - Provider: Scotty Dela Cruz, GRETCHEN)1217 (Given - Provider: Bernadette Ford, GRETCHEN)1737 (Given [...] 10 mg, Oral, DAILY, First dose on 03/01/24 at 1945, Until Discontinued, Routine 0840 (Given - Provider: Dilma Dominique, GRETCHEN) citalopram (CeleXA) tablet 40 mg 40 mg, Oral, DAILY, First dose (after last modification) on Fri03/07/24 at 0900, Until Discontinued, Routine 0905 (Given - Provider: Bernadette Ford, GRETCHEN) 0832 (Given - Provider: Mae Velazquez, RN) enoxaparin (Lovenox) (40 mg/0.4 mL) subcutaneous injection 40 mg 40 mg, Subcutaneous, NIGHTLY, First dose on Fri03/01/24 at 2100, Until Discontinued, Routine 2200 (Given - Provider: Scotty Dela Cruz RN) 2036 (Given - Provider: Nahomi Toussaint, GRETCHEN) furosemide (Lasix) tablet 40 mg 40 mg, Oral, 2 TIMES DAILY, First dose on Fri03/04/24 at 0915, Until Discontinued, Routine 0841 (Given - Provider: Dimla Dominique RN)1712 (Given - Provider: Dilma Dominique RN) 09 (Given - Provider: Bernadette Ford, GRETCHEN)1643 (Given - Provider: Bernadette Ford, GRETCHEN) 0832 (Given - Provider: Mae Velazquez RN) insulin glargine-ygfn (Semglee) (100 unit/mL) subcutaneous injection vial 10 Units (CANCELED) 10 Units, Subcutaneous, NIGHTLY, First dose (after last modification) on Fri03/04/24 at 2100, Until Discontinued, Routine 220 (Given - Provider: Scotty Dela Cruz RN) 2038 (Given - Provider: Nahomi Toussaint, GRETCHEN) [...] Hours, EVERY 24 HOURS, First dose on 03/01/24 at 1945, Until Discontinued, Apply patch(es) for 12 hours, and then remove for 12 hours., Routine 0757 (Patch Removed - Provider: Dilma Dominique RN)1999 (Not Given - Provider: Scotty Dela Cruz RN - Reason: Patient/family refused) 0021 (Patch Applied - Provider: Scotty Dela Cruz RN)1218 (Patch Removed - Provider: Bernadette Ford RN)203 (Patch Applied - Provider: Nahomi Toussaint RN) [...] (Given - Provider: Scotty Dela Cruz RN) 904 (Given - Provider: Bernadette Ford, RN)2036 (Given - Provider: Nahomi Toussaint, GRETCHEN) 0832 (Given - Provider: Mae Velazquez RN) polyethylene glycoL (Miralax) packet 17 g 17 g, Oral, DAILY, First dose on Fri03/05/24 at 0900, Until Discontinued, Routine 09 (Not Given - Provider: Dilma Dominique RN - Reason: Contraindicated) 905 (Given - Provider: Bernadette Ford, GRETCHEN) 09 (Not Given - Provider: Mae Velazquez RN [...] Dilma Dominique RN)1309 (Stopped - Provider: Dilma Dominique, GRETCHEN)1404 (New Bag - Provider: Dilma Dominique, GRETCHEN)1504 [...] RN) 0905 (Given - Provider: Bernadette Ford RN)2037 (Given - Provider: Nahomi Toussaint RN) 0832 (Given - Provider: Mae Velazquez RN) sodium chloride 0.9 % (flush) (BD PosiFlush Normal Saline 0.9) flush 5 mL 5 mL, Intravenous, 2 TIMES DAILY, First dose on Fri03/01/24 at 2100, Until Discontinued, Recovery (Recovery-Hospital Unit), Routine 0841 (Given - Provider: Dilma Dominique RN)2100 (Not Given - Provider: Scotty Dela Cruz RN - Reason: Patient/family refused) 0905 (Given - Provider: Bernadette Ford, GRETCHEN)204 (Given - Provider: Nahomi Toussaint, GRETCHEN) 0900 (Given - Provider: Mae Velazquez RN) sodium chloride 0.9% 500 mL IV bolus (COMPLETED) at 500 mL/hr, Intravenous, ONCE, 1 dose, On Fri03/08/24 at 0815 0812 (New Bag - Provider: Mae Velazquez RN)0912 (Stopped - Provider: Mae Velazquez RN) Continuous Medication Order 03/06/2024 03/07/2024 03/08/2024 [...] on a programmed frequency, Recovery (Recovery-Hospital Unit) 2258 (New Bag - Provider: Scotty Dela Cruz [...] Unit) 0857 (Rate/Dose Change - Provider: Bernadette Ford, GRETCHEN)1026 (Stopped - Provider: Bernadette Ford RN) PRN [...] of Hydralazine then call Surgical Oncology on [phone] (Given - Provider: Bernadette Ford RN) 020 (Given - Provider: Nahomi Toussaint, GRETCHEN)0515 (Given - Provider: Nahomi Toussaint, GRETCHEN) HYDROmorphone (Dilaudid) (0.5 mg/0.5 mL) injection syringe [...] then call Surgical Oncology on 5012c, Routine 1036 (Given - Provider: Bernadette Ford RN)1517 (Given - Provider: Bernadette Ford RN)1850 (Given - Provider: Bernadette Ford RN)2357 (Given - Provider: Nahomi Toussaint, GRETCHEN) 0051 (Given - Provider: Nahomi Toussaint, GRETCHEN)0949 (Given - Provider: Mae Velazquez RN) lidocaine [...] Starting on Aline 03/04/24 at 0826, Until Fri03/07/24 at 0837, Pain, Routine 0545 (Given - Provider: Katelynn Unger RN) oxyCODONE (Roxicodone) tablet 5-10 mg 5-10 mg, Oral, EVERY 4 HOURS PRN, Starting on 03/07/24 at 0836, Until Fri03/08/24 at 1701, Pain, 5mg for moderate pain 4-6 not controlled with Tylenol, 10mg for severe pain 7-10 not controlled with Tylenol, Routine 1037 (Given - Provider: Bernadette Ford, RN)1436 (Given - Provider: Bernadette Ford, GRETCHEN)1517 (Given - Provider: Bernadette Ford RN) prochlorperazine (Compazine) (5 mg/mL) injection 10 mg 10 mg, Intravenous, EVERY 6 HOURS PRN, Starting on 03/06/24 at 0417, Until Fri03/08/24 at 1701, Nausea, for nausea or vomiting, Routine 0430 (Given - Provider: Katelynn Unger RN) 0015 (Given - Provider: Scotty Dela Cruz, GRETCHEN)1742 (Given - Provider: Bernadette Ford, GRETCHEN) 0706 (Given - Provider: Nahomi Toussaint RN) sodium chloride 0.9 % (flush) (BD [...] Routine documented in this encounter Care Teams Rat Culturist Relationship Specialty Start Date End Date Olga Hoffman APRN [address] [place] [address] PCP - General Family Medicine 10/30/22 documented as of this encounter
--- OUTSIDE RECORDS SUMMARY | 2024-05-27 18:01 | XMS_ITS | Encounter Summary ---
Author Organization [facility] [address] Care Team Providers Care Sales Service Manager Name Role Phone Dalton Olgaevy Bell APRN Primary Care Provider [phone] Reason for Visit * Auth/Cert (Routine) Specialty Diagnoses / Procedures Referred By Contac t Referred To Contact Diagnoses Malignant neoplasm of duodenum DUODENUM ADENCARCINOMA Procedures PRO PART REMV PANC, PROX+REMV DUOD+ANAST @WHIPPLE PROCEDURE (WRVU 52.84) Rudi Hernandez MD [facility] [place] [address] [facility] Referral ID Status Reason Start Date Expiration Date Visits Re quested Visits Authorized [id number] 1 1 Encounter Details Date Type Department Care Team (Latest Contact Info) Description 03/01/2024 6:11 AM EDT - 03/08/2024 3:01 PM EDT Hospital Encounter Surgical Unit Level 4 [place] [address] Rudi Hernandez MD [facility] [place] [address] Duodenal cancer; Duodenal adenocarcinoma Discharge Disposition: Home Social History Tobacco Use Types Packs/Day Years Used Date Smoking Tobacco: Never Smokeless Tobacco: Never Alcohol Use Standard Drinks/Week Comments Not Currently 0 (1 standard drink = 0.6 oz pur e alcohol) [facility] Utilities Answer Date Recorded In [...] time in the past 12 m [facility], were you homeless or living in a chcf (including now)? 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 Operations/Major Procedures: [...] Hospital Course: Charles Nick was admitted to [facility] on 03/01/2024 [facility]. He [...] Fluid boluses for oliguria, Cr WNL. DM MORTICIAN SUPPLIES SALES REPRESENTATIVE recommendedstarting Lantus 8u daily. Seen by wound [...] gauge x 1/4 Needle 1 each by [facility].(Non-Drug; Combo Route) route 2 times daily. Generic drug: Insulin [place] (Disposable) 1 each Quantity: 300 each Refills: [...] Center 03/17/2024 9:30 AM Silvio Gilbert MD [facility] PLAS 4M [facility] 03/17/2024 10:[address] [facility] SURG [facility] 03/24/2024 2:00 PM Rudi Hernandez MD [facility] SURG [facility] Outpatient Services/Studies: CBC (with Diff) Standing Status: [...] the nurses in the Surgery Clinic at [phone]. - During the night time hours call the hospital french edge operator [phone] and ask to speak to the general surgery resident operations manager/coordinator. Instructions for when you are home: Diet: Ok to eat a regular diet as tolerated. It is important to try to eat as much calories and protein as possible during recovery to aid in healing. You frequently may feel full easily or even havenausea. Take small meals at first and pace yourself. You may supplement your diet with nutritional shakes/drinks (Ensure, [place] Instant Breakfast, Boost) if possible. Enzymes: You [...] until you are seen by Dr. Delacruz [facility] for your first postop visit. [...] has been scheduled with Dr. Delacruz's office [phone]. In most cases Dr. Delacruz will order blood work to be done on the day of your post op clinic appointment. This decision is made on a [id number]-ph-zgup basis so ask if this is necessary and plan to come to [facility] pr ior to the appointment to get the blood work done in 3L as instructed. - Of course, if you are being discharged on a weekend and Dr. Delacruz's office is closed then call the office [phone] first thing Friday. Future Appointments Date Time Provider Department Center 03/17/2024 9:30 AM Silvio Gilbert MD [facility] PLAS 4M [facility] 03/17/2024 10:[address] [facility] SURG [facility] 03/24/2024 2:00 PM Rudi Hernandez MD [facility] SURG [facility] You have been scheduled for a follow-up with our outpatient network contract manager Donna Dewey RD to review your nutrition postoperatively - this has been coordinated to occur the same day you are here seeing plastic surgery. I reached out to your airline managerial supervisor Dr. Maxwell's office to request follow-up with [...] speak with the surgery nurses.The number is [phone]. - During the night call the [facility] french edge operator and ask to speak to the surgery resident operations manager/coordinator for general surgery. General Instructions Diabetes Discharge [...] AM Silvio Gilbert MD Plastic Surgery at [facility] Arrive at: [facility] 4M [phone] 03/17/2024 10:[address] General Surgery at [facility] Arrive at: [facility] 4L [phone] 03/24/2024 2:00 PM Rudi Hernandez MD General Surgery at [facility] Arrive at: [facility] 4L [phone] Please dispose of unused excess opioids before your appointment or bring them with you to the appointment and we will help you dispose of them correctly. Future Orders Complete By Expires CBC (with Diff) [CAP605 Custom] 03/24/2024 03/08/2025 Process Instructions: INCLUDES: WBC, RBC, Hgb, Hct, Platelets, RBC Indices and Differential Scheduling Instructions: Comments: Questions: Comprehensive metabolic panel (non-fasting) [LAB17 Custom] 03/24/2024 (Approximate) 03/08/2025 Process Instructions: INCLUDES: Calcium, T Protein, Albumin, AST, ALT, Alk Phos, T Bili, BUN, Creat, GFR, Glucose, Lytes. Scheduling Instructions: Comments: Questions: Magnesium [BXV368 Custom] 03/24/2024 03/08/2025 Process Instructions: Scheduling Instructions: Comments: Questions: Phosphorus [SPR772 Custom] 03/24/2024 09/23/2024 Process Instructions: Scheduling Instructions: Comments: Questions: Discharge References/Attachments: Discharge References/Attachments None Follow-up Recommendations for Providers: Medication changes: Insulin Lantus 10 u nightly added due to whipple procedure Diet changes: No change has been made to diet CC: Olga Hoffman APRN [phone] Signed: Tiffanie Pabon MD Surgical Oncology Service Team Pager #[phone] 03/08/2024 1:48 PM For questions regarding this document or issues relating to this hospitalization on the Surgical Oncology Service, please contact Rudi Hernandez MD's office at [phone] documented in this encounter Discharge Instructions * [...] juice or regular (not diet) soda 6 [employer] small box of raisins 4 glucose tablets [...] the nurses in the Surgery Clinic at [phone]. - During the night time hours call the hospital french edge operator [phone] and ask to speak to the general surgery resident operations manager/coordinator. Instructions for when you are home: Diet: Ok to eat a regular diet as tolerated. It is important to try to eat as much calories and protein as possible during recovery to aid in healing. You frequently may feel full easily or even havenausea. Take small meals at first and pace yourself. You may supplement your diet with nutritional shakes/drinks (Ensure, [place] Instant Breakfast, Boost) if possible. Enzymes: You [...] until you are seen by Dr. Delacruz [facility] for your first postop visit. [...] Incision: The skin incision(s) is closed with: [place] Usually the edd are removed anywhere from [...] has been scheduled with Dr. Delacruz's office [phone]. In most cases Dr. Delacruz will order blood work to be done on the day of your post op clinic appointment. This decision is made on a [id number]-dy-lriw basis so ask if this is necessary and plan to come to [facility] pr ior to the appointment to get the blood work done in 3L as instructed. - Of course, if you are being discharged on a weekend and Dr. Delacruz's office is closed then call the office [phone] first thing Friday. Future Appointments Date Time Provider Department Center 03/17/2024 9:30 AM Silvio Gilbert MD [facility] PLAS 4M [facility] 03/17/2024 10:[address] [facility] SURG [facility] 03/24/2024 2:00 PM Rudi Hernandez MD [facility] SURG [facility] You have been scheduled for a follow-up with our outpatient network contract manager Donna Dewey RD to review your nutrition postoperatively - this has been coordinated to occur the same day you are here seeing plastic surgery. I reached out to your airline managerial supervisor Dr. Maxwell's office to request follow-up with [...] speak with the surgery nurses.The number is [phone]. - During the night call the [facility] french edge operator and ask to speak to the surgery resident operations manager/coordinator for general surgery. documented in this encounter Medications at Time of Discharge Medication Sig Dispensed Refills Start Date End Date potassium chloride ER (Klor-Con, K-Tab) 10 mEq ER tablet Take 1 tablet by mouth 2 times daily. 30 tablet 03/08/2024 Insulin [place], Disposable, (BD Ultra-Fine Micro Pen Needle) 32 gauge x 1/4 Needle 1 each by [facility].(Non-Drug; Combo Route) route 2 [...] Biopsy Liver Percutaneous 01/07/2023 Juan Wright MD [facility] INTERVENTIONL RAD PRO PART REMV PANC, PROX+REMV DUOD+ANAST N/A 03/01/2024 @WHIPPLE PROCEDURE (WRVU 52.84) performed by Rudi Hernandez MD at [facility] MAIN OR PRO TRANSFER SKIN PEDICLE FLAP N/A 03/01/2024 TRANSFER, INTERMEDIATE, ANY PEDICLE FLAP, ANY LOCATION (WRVU 4.77) performed by Rudi Hernandez MD at [facility] MAIN OR Social History:Home set-up: Lives [...] for this consult. MIKI HARRELL, PT Pager: [phone] Physical Therapy Inpatient Rehabilitation Department * Diane [...] Fluid boluses for oliguria, Cr WNL. DM MORTICIAN SUPPLIES SALES REPRESENTATIVE recommendedstarting Lantus 8u daily. Seen by wound care for foot ulcer present on admission and followed by outpatient podiatry - treating plantar ulcer with viktoriya, leaving hallux open to air. 03/03 POD2: BASIA amylase 645. Creatinine up from 0.8 to 1.16 with continued poor UOP, FENA suggestive of prerenal ERAL. He was given Crystalloids and Albumin for [...] Pabon MD Surgical Oncology Service Team Pager #[phone] 03/07/24 8:33 AM * Diane Sexton MD [...] Fluid boluses for oliguria, Cr WNL. DM MORTICIAN SUPPLIES SALES REPRESENTATIVE recommendedstarting Lantus 8u daily. Seen by wound [...] Pabon MD Surgical Oncology Service Team Pager #[phone] 03/06/24 8:35 AM I saw, examined, and [...] to have your insulin doses adjusted. Isidra iHckey APRN, [facility] Inpatient Diabetes Management Team Team pager #[phone] * Gary Mtz PA - 03/05/2024 9:58 [...] Fluid boluses for oliguria, Cr WNL. DM MORTICIAN SUPPLIES SALES REPRESENTATIVE recommendedstarting Lantus 8u daily. Seen by wound [...] Vj Joya Surgical Oncology Service Team Pager #[phone] 03/05/24 9:58 AM I saw, examined, and [...] Diet CC Monitoring: Q4 Kristen Meza APRN [facility] Endocrinology Diabetes Management Pager [phone] Weekends please page [phone] * Miki Harrell, PT - 03/04/2024 1:20 [...] Fluid boluses for oliguria, Cr WNL. DM MORTICIAN SUPPLIES SALES REPRESENTATIVE recommendedstarting Lantus 8u daily. Seen by wound [...] fatty liver disease, type [facility], and a newly diagnosed duodenal adenocarcinoma who [...] JULIO Burgess Surgical Oncology Service Team Pager #[phone] 03/04/24 12:09 PM Associated attestation - Rudi [...] as a scribe for Dr. Mac Holguin. Brand Specialist Patient seen and examined on daily rounds. I agree with the above assessment and plan. Mac Holguin MD 9702 APNJ Nurse: Collin Vallecillo RN Resident:: Juan Michelle MD Attending Physician:: Mac Holguin MD * Kristen Meza, TRIAL EXAMINER - 03/04/2024 7:15 AM EDT Follow Up [...] if this can be covered for him nursing home. PLAN Lantus:8--> ADJUSTED to 10 units Lispro for correction q 4 hours based on a correction factor of 40 Diet Clear Liquid Monitoring: Q4 Discharge considerations: Open to adding back insulin at discharge CGM for discharge Kristen Meza APRN [facility] Endocrinology Diabetes Management Pager [phone] Weekends please page [phone] 35 minutes were spent over the course [...] hours OOB. PT to follow tomorrow. * rKisten Meza APRN - 03/03/2024 3:01 PM EDT [...] Clear liquid Monitoring: Q4 Kristen Meza APRN [facility] Endocrinology Diabetes Management Pager [phone] Weekends please page [phone] 35 minutes were spent over the course [...] Pabon MD Surgical Oncology Service Team Pager #[phone] 03/03/24 2:06 PM * Ezio, Mac De [...] - 12.5 sec Final Operative Procedures: Procedure(s): @WAVERLY HALL PROCEDURE (WRVU 52.84) TRANSFER, INTERMEDIATE, ANY PEDICLE [...] as a scribe for Dr. Mac Holguin. Brand Specialist Patient seen on daily rounds. I agree with the above assessment and plan. Fantastic analgesia with epidural. Mac Holguin MD 7406 APMS Nurse: Collin Vallecillo RN Resident:: Juan [...] Biopsy Liver Percutaneous 01/07/2023 Juan Wright MD [facility] INTERVENTIONL RAD Social History:Home set-up: Lives [...] for evaluation today. Pain: well controlled with COLLABORATIVE TEACHER/epidural Vital Signs / Cardiopulmonary: SpO2: 95% on [...] for this consult. MIKI HARRELL, PT Pager: [phone] Physical Therapy Inpatient Rehabilitation Department 2017 PT [...] FLANAGAN; Age: 4 1975; 48 y.o. Room/Bed: [address] [place] [address] Today's Date: 03/02/24 ID: Charles Nick is [...] to LCWS for today. OOB/ambulate/PT/OT. Appreciate DM MORTICIAN SUPPLIES SALES REPRESENTATIVE recommendations for his post-Whipple hyperglycemia in the [...] JULIO Burgess Surgical Oncology Service Team Pager #[phone] 03/02/24 3:24 PM * Violeta Manley RN - 03/02/2024 3:15 PM EDT Pt arrived to [facility] around 1445. Connected to carmen VSS on RA. NG to LCWS. LR 1L bolus initiated. Epidural remains in place. Abd dressing w/ spotting, not outside marked areas. BASIA to bulb suction. See flowsheets for full assessment. * Miki Harrell, PT - 03/02/2024 2:49 PM EDT 03/02/24 1445 Evaluation & Treatment Document Type contact Total [...] assessment and plan Mac Holguin MD [address] [facility] Nurse: Robert Pena RN Resident:: Juan Michelle [...] Kim MD 03/01/2024 Surgical Oncology, Team Pager [phone] * Roxie Rascon RN - 03/01/2024 9:10 [...] fatty liver disease, type 2 [facility], with a newly diagnosed duodenal adenocarcinoma. He [...] and Plan: 48 y.o. male presents for tecumseh. Latonia Red MD 03/01/24 documented in this [...] none Patient is insured through: Primary Insurance: [employer] Payor: [employer] / Plan: [facility] PPO / Product Type: *No Product type* / Secondary Insurance: N/A Prescription Coverage: Yes This plan was formulated with input from patient, and team. All are in agreement with plan. JACKIE Mcguire, ophthalmic medical technician of Care Management Pager [phone] * Plan of Care - Nahomi Toussaint [...] result of 206mL. ordered a straight cath, instructional writer straight cathed 300mL of urine at [...] No Patient is insured through: Primary Insurance: [employer] Payor: [facility] / Plan: [facility] PPO / Product Type: *No [...] Anticipated Date of Discharge: 03/07/2024 JACKIE Mcguire, ophthalmic medical technician of Care Management Pager [phone] * Plan of Care - Katelynn Unger [...] BM this shift, faint BS. Midline incision QUALITY INTERN,edd intact. Adb BASIA to bulb suction w/ [...] [current deficits]: unfamiliar environment, lines/tubes/drains, generalized weakness, narcotics/COLLABORATIVE TEACHER/epidural, recent surgery, bilat LE baseline numbness Assistance [...] [current deficits]: unfamiliar environment, lines/tubes/drains, generalized weakness, narcotics/COLLABORATIVE TEACHER/epidural, recent surgery, bilat LE baseline numbness Assistance [...] management and to provide a review of terminologist diabetes care. Diabetes History: Charles Nick has had diabetes since . Part of this hx was gleaned from Dr Dawson evaluation in 2020 upon referral from [facility]. He was seen briefly in the PACU. [...] found for: HA1C ordered and pending FROM [employer] [facility] ([employer] in 2020) has Ha1C screen shots which [...] education: we believe he has had at [facility]-was referred to dr dawson from [place] . Lab Results Component Value Date MICROALBUR [...] insulin and what his Ha1C results to intermediate diabetes care: Medications - Outpatient treatment regimen [...] Team, bedside nurse, medical record, and Patient (Quality Intern spoke with the patient in the recovery.) [...] surrogate would be surrogate decision maker per [place] surrogate decision making law. (Only good for 180 days) Any patient receiving care in [place] must abide by [place] law. The hierarchy for surrogate decision making [...] (i) The agent with financial power of disability attorney or a conservator appointed in accordance [...] homeless or living in a chcf (including now)?: No In the past 12 months has the [employer], gas, oil, or water [employer] threatened to shut off services in your [...] Current DME: none Home Address confirmed as: [address] [place] [phone] Social & Family Supports: All names listed below confirmed with patient as current and correct Extended Emergency Contact Information Primary Emergency Contact: JENELLE SOUZA Address: [address] [place] [address] [place] Relation: Life Partner [...] Specific Information: none Health/Prescription Coverage: Primary Insurance: [facility] Payor: [facility] / Plan: [facility] PPO / Product Type: *No Product type* / Secondary Insurance: N/A ; Prescription Coverage: Yes Preferred Pharmacy: [facility] On license of [facility] [address] [address] [address] - [place], [place] - [address] [place] [address] [place] Status: Patient is a : No Primary Care Provider confirmed: Olga Hoffman, YOCASTA [phone] Patient/Caregiver Goals of Treatment: Return home with [...] coordination of care as indicated. JACKIE Mcguire, ophthalmic medical technician of Care Management Pager [phone] * Consult Note - Francine Martinez RN [...] Cover with a Mepilex border. ([employer]ih[employer] PS# [id number]) Right hallux underside: leave the blister open to air Wound Care Team will follow next week. Discussed plan with: PA: Gary Mtz, secure chat Please contact Francine Martinez RN on secure chat or the wound care team at [phone] or pager [phone] with skin and wound care concerns or questions. Electronically Signed By: Francine Martinez RN * Brief Op Note - Latonia Red MD - 03/01/2024 6:38 PM EDT Brief Operative Note Patient Name: Charles Nick : [id number] MR#: [id number] Case Date: 03/01/2024 Surgeon: Surgeons and Role: [...] Biospecimen to store? No SPECIMEN TO PATHOLOGY Mcguffey: Yellow- pancreatic neck margin, Blue paint- vascular groove, [place]- SMA, Green- bile duct margin DUODENUM ADENCARCINOMA [...] Hernandez MD - 03/01/2024 8:28 AM EDT [facility] Operative Note Patient Name: Charles Nick : [id number] MR#: [id number] Case Date: 03/01/2024 Surgeon: Surgeons and Role: [...] Biospecimen to store? No SPECIMEN TO PATHOLOGY Mcguffey: Yellow- pancreatic neck margin, Blue paint- vascular groove, [place]- SMA, Green- bile duct margin DUODENUM ADENCARCINOMA [...] was not able to place the 8 [place] [employer] feeding tube into the duct, thus I used a 5 [place] feeding tube which passed easily. I placed [...] used to createthe PJ anastomosis, the 5 [place] feeding tube was cut to 8 cm [...] were placed with 3-0 silk. A 19 [place] drain was brought into the right abdomen [...] AM EDT Office Visit Hematology/Oncology at [address] [phone] Rodriguez Fowler MD [facility] [place] [address] Sherry Cedillo APRN [address] [place] [address] [place] [address] 05/28/2024 8:30 AM EDT Infusion Hematology Oncology at [address] [phone] 05/28/2024 9:30 AM EDT Clinical Support Hematology/Oncology at [address] [phone] Leah Rose, RD [facility] [place] [address] documented as of this encounter Procedures Procedure [...] 7:45 AM EDT Transfer Skin Pedicle Flap ([id number]) 03/01/2024 7:42 AM EDT DUODENUM ADENCARCINOMA Part Remv Panc, Prox+Remv Duod+Anast ([id number]) 03/01/2024 7:42 AM EDT 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/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 03/01/2024 7:03 AM EDT documented in this encounter Results * Phosphorus (04/20/2024 12:39 PM EDT) Phosphorus 3.1 2.5 - 4.5 mg/dL 04/20/2024 1:28 PM EDT [facility] Blood VENOUS BLOOD SPECIMEN / Unknown Venipuncture / Unknown 04/20/2024 12:39 PM EDT 04/20/2024 12:39 PM EDT Rudi Hernandez MD CHEMISTRY ORDERABLES [facility] [place] [place] [address] * Magnesium (04/20/2024 12:39 PM EDT) Magnesium 0.74 0.69 - 1.07 mMol/L 04/20/2024 1:28 PM EDT [facility] Blood VENOUS BLOOD SPECIMEN / Unknown Venipuncture / Unknown 04/20/2024 12:39 PM EDT 04/20/2024 12:39 PM EDT Rudi Hernandez MD CHEMISTRY ORDERABLES [facility] [place] [address] * (ABNORMAL) Comprehensive metabolic panel (04/20/2024 12:39 PM EDT) Glucose 204(H) 65 - 199 mg/dL 04/20/2024 1:28 PM EDT [facility] Comment:Glucose Concentratio n >=200 mg/dL plus symptoms is consistent with Diabetes Mellitus. Blood Urea Nitrogen 5(L) 10 - 20 mg/dL 04/20/2024 1:28 PM EDT [facility] Creatinine 0.82 0.80 - 1.50 mg/dL 04/20/2024 1:28 PM EDT [facility] Sodium 141 135 - 145 mMol/L 04/20/2024 1:28 PM EDT [facility] Potassium 4.1 3.5 - 5.0 mMol/L 04/20/2024 1:28 PM EDT [facility] Chloride 104 98 - 107 mMol/L 04/20/2024 1:28 PM [facility] Carbon Dioxide 27 22 - 31 mMol/L 04/20/2024 1:28 PM [facility] Anion Gap 10 5 - 15 mMol/L 04/20/2024 1:28 PM [facility] Calcium 9.2 8.5 - 10.5 mg/dL 04/20/2024 1:28 PM [facility] Protein, Total 6.5 6.1 - 8.0 g/dL 04/20/2024 1:28 PM [facility] Albumin 3.5 3.2 - 5.2 g/dL 04/20/2024 1:28 PM [facility] Aspartate Aminotransferase 15 <=39 unit/L 04/20/2024 1:28 PM [facility] Alanine Aminotransferase 14 0 - 55 unit/L 04/20/2024 1:28 PM [facility] Alkaline Phosphatase 71 40 - 130 unit/L 04/20/2024 1:28 PM [facility] Bilirubin, Total 0.3 <=1.3 mg/dL 04/20/2024 1:28 PM [facility] Est Glomerular Filtration Rate - Male 108 mL/min/1. 73 m?? 04/20/2024 1:28 PM [facility] Comment: This patient's estimated GFR was [...] Foundation Fasting Status No 04/20/2024 1:28 PM [facility] Blood VENOUS BLOOD SPECIMEN / Unknown Venipuncture / Unknown 04/20/2024 12:39 PM EDT 04/20/2024 12:39 PM EDT Rudi Hernandez MD CHEMISTRY ORDERABLES [facility] [facility] [address] * (ABNORMAL) CBC (with Diff) (04/20/2024 12:39 PM EDT) White Blood Cell 7.18 x10(3)/mc L 04/20/2024 12:49 PM EDT [facility] Red Blood Cell 5.26 4.58 - 5.54 x10(6)/mc L 04/20/2024 12:49 PM EDT [facility] Hemoglobin 12.6(L) 13.7 - 16.5 g/dL 04/20/2024 12:49 PM EDT [facility] Hematocrit 40.5 40.5 - 48.5 % 04/20/2024 12:49 PM EDT [facility] Mean Cell Volume 77.0(L) 82.9 - 93.1 fL 04/20/2024 12:49 PM EDT [facility] Mean Cell Hemoglobin 24.0(L) 27.5 - 32.1 pg 04/20/2024 12:49 PM EDT [facility] Mean Cell Hemoglobin Concentration 31.1(L) 32.0 - 35.7 g/dL 04/20/2024 12:49 PM EDT [facility] Platelet 178 145 - 357 x10(3)/mc L 04/20/2024 12:49 PM EDT [facility] Mean Platelet Volume 10.5 7.6 - 12.9 fL 04/20/2024 12:49 PM EDT [facility] RDW Standard Deviation 48.7(H) 36.0 - 45.0 fL 04/20/2024 12:49 PM EDT [facility] RDW coefficient of variation 17.7(H) 11.4 - 13.8 % 04/20/2024 12:49 PM [facility] NRBC% auto 0.0 % 04/20/2024 12:49 PM [facility] NRBC Absolute 0.00 0.00 - 0.00 x10(3)/mc L 04/20/2024 12:49 PM [facility] Neutrophil % 66.4 % 04/20/2024 12:49 PM [facility] Neutrophil Absolute (ANC) - Automated 4.77 1.70 - 6.10 x10(3)/mc L 04/20/2024 12:49 PM [facility] Lymph % 20.8 % 04/20/2024 12:49 PM [facility] Lymph Absolute 1.49 0.90 - 3.20 x10(3)/mc L 04/20/2024 12:49 PM [facility] Monocyte % 6.1 % 04/20/2024 12:49 PM [facility] Monocyte Absolute 0.44 0.30 - 0.90 x10(3)/mc L 04/20/2024 12:49 PM [facility] Eos % 5.3 % 04/20/2024 12:49 PM [facility] Eos Absolute 0.38 0.00 - 0.40 x10(3)/mc L 04/20/2024 12:49 PM [facility] Basophil % 0.6 % 04/20/2024 12:49 PM [facility] Baso Absolute 0.04 0.00 - 0.10 x10(3)/mc L 04/20/2024 12:49 PM [facility] Immature Gran % 0.8 % 12:49 PM [facility] Immature Gran Absolute 0.06(H) 0.00 - 0.04 x10(3)/mc L 04/20/2024 12:49 PM [facility] Blood VENOUS BLOOD SPECIMEN / Unknown Venipuncture / Unknown 04/20/2024 12:39 PM EDT 04/20/2024 12:39 PM EDT Rudi Hernandez MD HEMATOLOGY ORDERABLE S [facility] [place] [address] * POCT Glucose (03/08/2024 11:26 AM EDT) Glucose, POC 158 65 - 199 mg/dL [facility] Comment: Supplemental ranges: <140 mg/dL before meals <180 mg/dL all other times of the day Blood 03/08/2024 11:2 6 AM EDT 03/08/2024 11:26 AM EDT Rudi Hernandez MD POINT OF CARE TEST O RDERABLES Performing Organization Address City/[facility]/ZIP Co de Phone Number [facility] [place] [address] * POCT Glucose (03/08/2024 8:13 AM EDT) Glucose, POC 170 65 - 199 mg/dL [facility] Comment: Supplemental ranges: <140 mg/dL before meals <180 mg/dL all other times of the day Blood 03/08/2024 8:13 AM EDT 03/08/2024 8:13 AM EDT Rudi Hernandez MD POINT OF CARE TEST O RDERABLES [facility] [place] [address] * Scan, Peripheral Blood (03/08/2024 4:44 AM EDT) Plat estimate Normal [facility] RBC Morphology Abnormal [facility] Hypochromia Slight [facility] Polychromasia Present >5/HPF [facility] Marcy Cells 6-10 /HPF [facility] Blood 03/08/2024 4:44 AM EDT 03/08/2024 5:05 AM EDT Narrative Resulting Agency Comment Spec In Lab Latonia Red MD HEMATOLOGY ORDERABLE S [facility] [place] [address] * (ABNORMAL) Differential, Automated (03/08/2024 4:44 AM EDT) Neutrophil % 84.9 % [facility] Neutrophil Absolute 8.47(H) 1.70 - 6.10 x10(3)/mc L [facility] Lymph % 8.6 % [facility] Lymphocytes Abs 0.9 0.9 - 3.2 x10(3)/ L [facility] Monocyte % 4.7 % [facility] Monocyte Abs 0.5 0.3 - 0.9 x10(3)/mc L [facility] Eos % 1.0 % [facility] Eosinophils Abs 0.1 0.0 - 0.4 x10(3)/ L [facility] Basophil % 0.3 % [facility] Baso Absolute 0.0 0.0 - 0.1 x10(3)/mc L [facility] Immature Gran % 0.50 % [facility] Comment: Immature granulocytes(IG's)percentage and absolute count will include metamyelocytes, myelocytes, and promyelocytes. Blood smears from CBCs yielding IG's will be scanned manually for concordance. If this scan disagrees with the automated IG or if promyelocytes are noted, a manual differential will be performed. Immature Gran Absolute 0.05(H) 0.00 - 0.04 x10(3)/mc L [facility] Blood 03/08/2024 4:44 AM EDT 03/08/2024 5:05 AM EDT Narrative Resulting Agency Comment Spec In Lab Latonia Red MD HEMATOLOGY ORDERABLE S [facility] [place] [address] * (ABNORMAL) Hemogram (03/08/2024 4:44 AM EDT) White Blood Cell 10.0(H) 4.0 - 9.5 x10(3)/mc L [facility] Red Blood Cell 5.24 4.58 - 5.54 x10(6)/mc L [facility] Hemoglobin 12.7(L) 13.7 - 16.5 g/dL [facility] Hematocrit 39.2(L) 40.5 - 48.5 % [facility] Mean Cell Volume 74.8(L) 82.9 - 93.1 [facility] Mean Cell Hemoglobin 24.2(L) 27.5 - 32.1 pg [facility] Mean Cell Hemoglobin Concentration 32.4 32.0 - 35.7 g/dL [facility] Platelet 295 145 - 357 x10(3)/mc L [facility] RDW Standard Deviation 40.1 36.0 - 45.0 [facility] RDW coefficient of variation 14.9(H) 11.4 - 13.8 % [facility] Mean Platelet Volume 10.1 7.6 - 12.9 [facility] NRBC% auto 0.0 % [facility] NRBC Absolute 0.000 0.000 - 0.000 x10(3)/mc L [facility] Blood 03/08/2024 4:44 AM EDT 03/08/2024 5:05 AM EDT Narrative Resulting Agency Comment Spec In Lab Latonia Red MD HEMATOLOGY ORDERABLE S [facility] [place] [address] * (ABNORMAL) Comprehensive metabolic panel (non-fasting) (03/08/2024 4:44 AM EDT) Glucose 197 65 - 199 mg/dL [facility] Comment:Diabetes: >=200 mg/d L plus symptoms Blood Urea Nitrogen 3(L) 10 - 20 mg/dL [facility] Creatinine 0.57(L) 0.80 - 1.50 mg/dL [facility] Sodium 132(L) 135 - 145 mmol/L [facility] Potassium 3.2(L) 3.5 - 5.0 mmol/L [facility] Comment: Please note: ??Patients with WBC >100,000 may have falsely elevated Potassium levels. ??For accurate Potassium quantification in these patients send serum separator tube (gold top) for subsequent determinations. ??Contact the Clinical Chemistry Laboratory if there are any questions. Chloride 97(L) 98 - 107 mmol/L [facility] Carbon Dioxide 21(L) 22 - 31 mmol/L [facility] Anion Gap 14 5 - 15 mmol/L [facility] Calcium 8.8 8.5 - 10.5 mg/dL [facility] Protein, Total 6.1 6.1 - 8.0 g/dL [facility] Albumin 3.0(L) 3.2 - 5.2 g/dL [facility] Aspartate Aminotransferase 11 0 - 39 unit/L [facility] Alanine Aminotransferase 22 0 - 55 unit/L [facility] Alkaline Phosphatase 94 40 - 130 unit/L [facility] Bilirubin, Total 0.4 0.2 - 1.3 mg/dL [facility] Est Glomerular Filtration Rate 120 >=60 mL/min/1. 73 m?? [facility] Comment: This patient's estimated GFR [...] In Lab Rudi Hernandez MD CHEMISTRY ORDERABLES [facility] [place] [address] * POCT Glucose (03/08/2024 4:25 AM EDT) Glucose, POC 168 65 - 199 mg/dL [facility] Comment: Supplemental ranges: <140 mg/dL before meals <180 mg/dL all other times of the day Blood 03/08/2024 4:25 AM EDT 03/08/2024 4:25 AM EDT Rudi Hernandez MD POINT OF CARE TEST O RDERABLES Performing Organization Address [facility] Co de Phone Number [facility] [place] [address] * POCT Glucose (03/08/2024 12:06 AM EDT) Glucose, POC 166 65 - 199 mg/dL [facility] Comment: Supplemental ranges: <140 mg/dL before meals <180 mg/dL all other times of the day Blood 03/08/2024 12:0 6 AM EDT 03/08/2024 12:06 AM EDT Rudi Hernandez MD POINT OF CARE TEST O RDERABLES Performing Organization Address City/[facility]/ZIP Co de Phone Number [facility] [place] [place] [address] * POCT Glucose (03/07/2024 8:35 PM EDT) Glucose, POC 177 65 - 199 mg/dL [facility] Comment: Supplemental ranges: <140 mg/dL before meals <180 mg/dL all other times of the day Blood 03/07/2024 8:35 PM EDT 03/07/2024 8:35 PM EDT Rudi Hernandez MD POINT OF CARE TEST O ELKIN [facility] [place] [place] [address] * POCT Glucose (03/07/2024 4:08 PM EDT) Glucose, POC 187 65 - 199 mg/dL [facility] Comment: Supplemental ranges: <140 mg/dL before meals <180 mg/dL all other times of the day Blood 03/07/2024 4:08 PM EDT 03/07/2024 4:08 PM EDT Rudi Hernandez MD POINT OF CARE TEST O ELKIN Performing Organization Address City/[facility]/ZIP Co de Phone Number [facility] [place] [address] * POCT Glucose (03/07/2024 12:20 PM EDT) Glucose, POC 183 65 - 199 mg/dL [facility] Comment: Supplemental ranges: <140 mg/dL before meals <180 mg/dL all other times of the day Blood 03/07/2024 12:2 0 PM EDT 03/07/2024 12:20 PM EDT Rudi Hernandez MD POINT OF CARE TEST O ELKIN [facility] [place] [place] [address] * POCT Glucose (03/07/2024 8:35 AM EDT) Glucose, POC 155 65 - 199 mg/dL [facility] Comment: Supplemental ranges: <140 mg/dL before meals <180 mg/dL all other times of the day Blood 03/07/2024 8:35 AM EDT 03/07/2024 8:35 AM EDT Rudi Hernandez MD POINT OF CARE TEST O RDERABLES [facility] [place] [place] [address] * (ABNORMAL) Differential, Automated (03/07/2024 4:53 AM EDT) Neutrophil % 81.0 % [facility] Neutrophil Absolute 6.52(H) 1.70 - 6.10 x10(3)/ L [facility] Lymph % 11.1 % [facility] Lymphocytes Abs 0.9 0.9 - 3.2 x10(3)/ L [facility] Monocyte % 5.8 % [facility] Monocyte Abs 0.5 0.3 - 0.9 x10(3)/ L [facility] Eos % 1.1 % [facility] Eosinophils Abs 0.1 0.0 - 0.4 x10(3)/ L [facility] Basophil % 0.5 % [facility] Baso Absolute 0.0 0.0 - 0.1 x10(3)/ L [facility] Immature Gran % 0.50 % [facility] Comment: Immature granulocytes(IG's)percentage and absolute count will include metamyelocytes, myelocytes, and promyelocytes. Blood smears from CBCs yielding IG's will be scanned manually for concordance. If this scan disagrees with the automated IG or if promyelocytes are noted, a manual differential will be performed. Immature Gran Absolute 0.04 0.00 - 0.04 x10(3)/ L [facility] Blood 03/07/2024 4:53 AM EDT 03/07/2024 5:12 AM EDT Narrative Resulting Agency Comment Spec In Lab Latonia Red MD HEMATOLOGY ORDERABLE S [facility] [place] [place] [address] * (ABNORMAL) Hemogram (03/07/2024 4:53 AM EDT) White Blood Cell 8.0 4.0 - 9.5 x10(3)/ L [facility] Red Blood Cell 4.89 4.58 - 5.54 x10(6)/[facility] Hemoglobin 11.9(L) 13.7 - 16.5 g/dL [facility] Hematocrit 37.5(L) 40.5 - 48.5 % [facility] Mean Cell Volume 76.7(L) 82.9 - 93.1 [facility] Mean Cell Hemoglobin 24.3(L) 27.5 - 32.1 pg [facility] Mean Cell Hemoglobin Concentration 31.7(L) 32.0 - 35.7 g/dL [facility] Platelet 230 145 - 357 x10(3)/[facility] RDW Standard Deviation 41.0 36.0 - 45.0 [facility] RDW coefficient of variation 14.7(H) 11.4 - 13.8 % [facility] Mean Platelet Volume 10.5 7.6 - 12.9 [facility] NRBC% auto 0.0 % [facility] NRBC Absolute 0.000 0.000 - 0.000 x10(3)/[facility] Blood 03/07/2024 4:53 AM EDT 03/07/2024 5:12 AM EDT Narrative Resulting Agency Comment Spec In Lab Latonia Red MD HEMATOLOGY ORDERABLE S [facility] [place] [address] * (ABNORMAL) Comprehensive metabolic panel (non-fasting) (03/07/2024 4:53 AM EDT) Glucose 180 65 - 199 mg/dL [facility] Comment:Diabetes: >=200 mg/d L plus symptoms Blood Urea Nitrogen 5(L) 10 - 20 mg/dL [facility] Creatinine 0.67(L) 0.80 - 1.50 mg/dL [facility] Sodium 136 135 - 145 mmol/L [facility] Potassium 3.8 3.5 - 5.0 mmol/L [facility] Comment: Please note: ??Patients with WBC >100,000 may have falsely elevated Potassium levels. ??For accurate Potassium quantification in these patients send serum separator tube (gold top) for subsequent determinations. ??Contact the Clinical Chemistry Laboratory if there are any questions. Chloride 99 98 - 107 mmol/L [facility] Carbon Dioxide 25 22 - 31 mmol/L [facility] Anion Gap 12 5 - 15 mmol/L [facility] Calcium 8.4(L) 8.5 - 10.5 mg/dL [facility] Protein, Total 5.9(L) 6.1 - 8.0 g/dL [facility] Albumin 3.0(L) 3.2 - 5.2 g/dL [facility] Aspartate Aminotransferase 11 0 - 39 unit/L [facility] Alanine Aminotransferase 25 0 - 55 unit/L [facility] Alkaline Phosphatase 88 40 - 130 unit/L [facility] Bilirubin, Total 0.4 0.2 - 1.3 mg/dL [facility] Est Glomerular Filtration Rate 114 >=60 mL/min/1. 73 m?? [facility] Comment: This patient's estimated GFR [...] [facility]/ZIP Co de Phone Number [facility] [place] [address] * POCT Glucose (03/07/2024 3:25 AM EDT) Glucose, POC 169 65 - 199 mg/dL [facility] Comment: Supplemental ranges: <140 mg/dL before meals <180 mg/dL all other times of the day Blood 03/07/2024 3:25 AM EDT 03/07/2024 3:25 AM EDT Rudi Hernandez MD POINT OF CARE TEST O RDERABLES Performing Organization Address [facility] Co de Phone Number [facility] [place] [address] * POCT Glucose (03/06/2024 11:20 PM EDT) Glucose, POC 141 65 - 199 mg/dL [facility] Comment: Supplemental ranges: <140 mg/dL before meals <180 mg/dL all other times of the day Blood 03/06/2024 11:2 0 PM EDT 03/06/2024 11:20 PM EDT Ruid Hernandez MD POINT OF CARE TEST O RDERABLES [facility] [place] [address] * POCT Glucose (03/06/2024 8:39 PM EDT) Glucose, POC 152 65 - 199 mg/dL [facility] Comment: Supplemental ranges: <140 mg/dL before meals <180 mg/dL all other times of the day Blood 03/06/2024 8:39 PM EDT 03/06/2024 8:39 PM EDT Rudi Hernandez MD POINT OF CARE TEST O ELKIN [facility] [place] [address] * POCT Glucose (03/06/2024 3:50 PM EDT) Glucose, POC 150 65 - 199 mg/dL [facility] Comment: Supplemental ranges: <140 mg/dL before meals <180 mg/dL all other times of the day Blood 03/06/2024 3:50 PM EDT 03/06/2024 3:50 PM EDT Rudi Hernandez MD POINT OF CARE TEST O ELKIN Performing Organization Address City/[facility]/ZIP Co de Phone Number [facility] [place] [address] * POCT Glucose (03/06/2024 11:38 AM EDT) Glucose, POC 158 65 - 199 mg/dL [facility] Comment: Supplemental ranges: <140 mg/dL before meals <180 mg/dL all other times of the day Blood 03/06/2024 11:3 8 AM EDT 03/06/2024 11:38 AM EDT Rudi Hernandez MD POINT OF CARE TEST O ELKIN [facility] [place] [address] * POCT Glucose (03/06/2024 8:07 AM EDT) Pathologist [facility] Glucose, POC 172 65 - 199 mg/dL [facility] Comment: Supplemental ranges: <140 mg/dL before meals <180 mg/dL all other times of the day Blood 03/06/2024 8:07 AM EDT 03/06/2024 8:07 AM EDT Rudi Hernandez MD POINT OF CARE TEST O RDERABLES Performing Organization Address [facility] Co de Phone Number [facility] [place] [address] * EKG 12 Lead (03/06/2024 6:30 AM EDT) [facility] Ventricular rate 82 BPM MUSE SYSTEM Atrial Rate 82 BPM MUSE SYSTEM P-R Interval 164 ms MUSE SYSTEM QRS Duration 100 ms MUSE SYSTEM Q-T Interval 430 ms MUSE SYSTEM QTC Calculated (Bezet) 502 ms MUSE SYSTEM Calculated P Cherry 49 degrees MUSE SYSTEM Calculated R Cherry 63 degrees MUSE SYSTEM Calculated T Cherry 7 degrees MUSE SYSTEM INTERPRETATION Normal sinus rhythm Prolonged QT Abnormal ECG No previous ECGs available Confirmed by MD Gomes Daniel ([id number]) on 03/07/2024 3:35:02 PM MUSE SYSTEM 03/06/2024 6:30 AM EDT 03/07/2024 3:35 PM EDT Rudi Hernandez MD ECG ORDERABLES Performing Organization Address [facility] de Phone Number MUSE SYSTEM * XR Abdomen Flat & Upright (03/06/2024 5:29 AM EDT) [facility] WORKSTATION ID [id number] [facility] Anatomical Region Laterality Modality Abdomen N/A Digital [...] who have questions please contact the health acute care clinical nurse specialist that requested your imaging first. ? Electronically signed by: Jenelle Cervantes MD, [facility] ([phone]), at 03/06/2024 8:15 AM Narrative 03/06/2024 8:15 [...] patients who have questions please contactthe health acute care clinical nurse specialist that requested your imaging first. Electronically signed by: Jenelle Cervantes MD, [facility]([phone]), at 03/06/2024 8:15 AM Rudi Hernandez MD IMG DX ORDERABLES * POCT Glucose (03/06/2024 4:39 AM EDT) Glucose, POC 163 65 - 199 mg/dL [facility] Comment: Supplemental ranges: <140 mg/dL before meals <180 mg/dL all other times of the day Blood 03/06/2024 4:39 AM EDT 03/06/2024 4:39 AM EDT Rudi Hernandez MD POINT OF CARE TEST O RDERABLES [facility] [place] [address] * Differential, Automated (03/06/2024 4:09 AM EDT) [facility] Neutrophil % 73.7 % [facility] Neutrophil Absolute 5.52 1.70 - 6.10 x10(3)/[facility] Lymph % 16.4 % [facility] Lymphocytes Abs 1.2 0.9 - 3.2 x10(3)/[facility] Monocyte % 6.8 % [facility] Monocyte Abs 0.5 0.3 - 0.9 x10(3)/[facility] Eos % 2.3 % [facility] Eosinophils Abs 0.2 0.0 - 0.4 x10(3)/[facility] Basophil % 0.5 % [facility] Baso Absolute 0.0 0.0 - 0.1 x10(3)/[facility] Immature Gran % 0.30 % [facility] Comment: Immature granulocytes(IG's)percentage and absolute count will include metamyelocytes, myelocytes, and promyelocytes. Blood smears from CBCs yielding IG's will be scanned manually for concordance. If this scan disagrees with the automated IG or if promyelocytes are noted, a manual differential will be performed. Immature Gran Absolute 0.02 0.00 - 0.04 x10(3)/mcL [facility] Blood 03/06/2024 4:09 AM EDT 03/06/2024 4:29 AM EDT Narrative Resulting Agency Comment Spec In Lab Latonia Red MD HEMATOLOGY ORDERABLE S [facility] [place] [address] * (ABNORMAL) Hemogram (03/06/2024 4:09 AM EDT) White Blood Cell 7.5 4.0 - 9.5 x10(3)/[facility] Red Blood Cell 4.98 4.58 - 5.54 x10(6)/ L [facility] Hemoglobin 12.1(L) 13.7 - 16.5 g/dL [facility] Hematocrit 38.4(L) 40.5 - 48.5 % [facility] Mean Cell Volume 77.1(L) 82.9 - 93.1 fL [facility] Mean Cell Hemoglobin 24.3(L) 27.5 - 32.1 pg [facility] Mean Cell Hemoglobin Concentration 31.5(L) 32.0 - 35.7 g/dL [facility] Platelet 220 145 - 357 x10(3)/ L [facility] RDW Standard Deviation 41.1 36.0 - 45.0 fL [facility] RDW coefficient of variation 14.8(H) 11.4 - 13.8 % [facility] Mean Platelet Volume 10.5 7.6 - 12.9 fL [facility] NRBC% auto 0.0 % [facility] NRBC Absolute 0.000 0.000 - 0.000 x10(3)/mc L [facility] Blood 03/06/2024 4:09 AM EDT 03/06/2024 4:29 AM EDT Narrative Resulting Agency Comment Spec In Lab Latonia Red MD HEMATOLOGY ORDERABLE S [facility] [place] [address] * (ABNORMAL) Comprehensive metabolic panel (non-fasting) (03/06/2024 4:09 AM EDT) Glucose 169 65 - 199 mg/dL [facility] Comment:Diabetes: >=200 mg/d L plus symptoms Blood Urea Nitrogen 6(L) 10 - 20 mg/dL [facility] Creatinine 0.70(L) 0.80 - 1.50 mg/dL [facility] Sodium 135 135 - 145 mmol/L [facility] Potassium 3.4(L) 3.5 - 5.0 mmol/L [facility] Comment: Please note: ??Patients with WBC >100,000 may have falsely elevated Potassium levels. ??For accurate Potassium quantification in these patients send serum separator tube (gold top) for subsequent determinations. ??Contact the Clinical Chemistry Laboratory if there are any questions. Chloride 98 98 - 107 mmol/L [facility] Carbon Dioxide 27 22 - 31 mmol/L [facility] Anion Gap 10 5 - 15 mmol/L [facility] Calcium 8.6 8.5 - 10.5 mg/dL [facility] Protein, Total 5.9(L) 6.1 - 8.0 g/dL [facility] Albumin 3.1(L) 3.2 - 5.2 g/dL [facility] Aspartate Aminotransferase 12 0 - 39 unit/L [facility] Alanine Aminotransferase 36 0 - 55 unit/L [facility] Alkaline Phosphatase 86 40 - 130 unit/L [facility] Bilirubin, Total 0.4 0.2 - 1.3 mg/dL [facility] Est Glomerular Filtration Rate 113 >=60 mL/min/1. 73 m?? [facility] Comment: This patient's estimated GFR [...] [facility]/ZIP Co de Phone Number [facility] [place] [address] * POCT Glucose (03/05/2024 11:13 PM EDT) Glucose, POC 151 65 - 199 mg/dL [facility] Comment: Supplemental ranges: <140 mg/dL before meals <180 mg/dL all other times of the day Blood 03/05/2024 11:1 3 PM EDT 03/05/2024 11:13 PM EDT Rudi Hernandez MD POINT OF CARE TEST O RDERABLES [facility] [place] [address] * POCT Glucose (03/05/2024 7:29 PM EDT) Glucose, POC 160 65 - 199 mg/dL [facility] Comment: Supplemental ranges: <140 mg/dL before meals <180 mg/dL all other times of the day Blood 03/05/2024 7:29 PM EDT 03/05/2024 7:29 PM EDT Rudi Hernandez MD POINT OF CARE TEST O RDERABLES Performing Organization Address City/[facility]/ZIP Co de Phone Number [facility] [place] [address] * POCT Glucose (03/05/2024 4:40 PM EDT) Glucose, POC 141 65 - 199 mg/dL [facility] Comment: Supplemental ranges: <140 mg/dL before meals <180 mg/dL all other times of the day Blood 03/05/2024 4:40 PM EDT 03/05/2024 4:40 PM EDT Rudi Hernandez MD POINT OF CARE TEST O ARASHERAVANNESSA Performing Organization Address [facility] Co de Phone Number [facility] [place] [address] * Amylase Level Body Fluid BASIA Drain (03/05/2024 11:20 AM EDT) Amylase, Fluid 32 unit/L [facility] Comment: Reference intervals are unavailable for this test in body fluids. Comparison of this result with the concentration in blood, serum, or plasma is recommended. This test has not been cleared by the [place] FDA. Performance characteristics of this test for the analysis of body fluids were determined by [facility] in accordance with CLIA requirements. This laboratory is qualified under CLIA to perform high-complexity testing. Amylase BF Type BASIA Drain [facility] BASIA Drain 03/05/2024 11:2 0 AM EDT 03/05/2024 11:37 AM EDT Narrative Resulting Agency Comment Spec In Lab Rudi Hernandez MD BODY FLUIDS AND STOO LS ORDERABLES Performing Organization Address [facility]/ZIP Co de Phone Number [facility] [place] [address] * POCT Glucose (03/05/2024 11:14 AM EDT) Glucose, POC 180 65 - 199 mg/dL [facility] Comment: Supplemental ranges: <140 mg/dL before meals <180 mg/dL all other times of the day Blood 03/05/2024 11:1 4 AM EDT 03/05/2024 11:14 AM EDT Rudi Hernandez MD POINT OF CARE TEST O RDERABLES [facility] [place] [address] * POCT Glucose (03/05/2024 7:47 AM EDT) Glucose, POC 180 65 - 199 mg/dL [facility] Comment: Supplemental ranges: <140 mg/dL before meals <180 mg/dL all other times of the day Blood 03/05/2024 7:47 AM EDT 03/05/2024 7:47 AM EDT Rudi Hernandez MD POINT OF CARE TEST O RDERABLES [facility] [place] [address] * POCT Glucose (03/05/2024 5:14 AM EDT) Glucose, POC 173 65 - 199 mg/dL [facility] Comment: Supplemental ranges: <140 mg/dL before meals <180 mg/dL all other times of the day Blood 03/05/2024 5:14 AM EDT 03/05/2024 5:14 AM EDT Rudi Hernandez MD POINT OF CARE TEST O RDERABLES [facility] [place] [address] * (ABNORMAL) Differential, Automated (03/05/2024 4:21 AM EDT) Neutrophil % 75.2 % [facility] Neutrophil Absolute 6.45(H) 1.70 - 6.10 x10(3)/[facility] Lymph % 13.8 % [facility] Lymphocytes Abs 1.2 0.9 - 3.2 x10(3)/[facility] Monocyte % 7.7 % [facility] Monocyte Abs 0.7 0.3 - 0.9 x10(3)/[facility] Eos % 2.3 % [facility] Eosinophils Abs 0.2 0.0 - 0.4 x10(3)/[facility] Basophil % 0.5 % [facility] Baso Absolute 0.0 0.0 - 0.1 x10(3)/[facility] Immature Gran % 0.50 % [facility] Comment: Immature granulocytes(IG's)percentage and absolute count will include metamyelocytes, myelocytes, and promyelocytes. Blood smears from CBCs yielding IG's will be scanned manually for concordance. If this scan disagrees with the automated IG or if promyelocytes are noted, a manual differential will be performed. Immature Gran Absolute 0.04 0.00 - 0.04 x10(3)/[facility] Blood 03/05/2024 4:21 AM EDT 03/05/2024 4:39 AM EDT Narrative Resulting Agency Comment Spec In Lab Latonia Red MD HEMATOLOGY ORDERABLE S [facility] [place] [address] * (ABNORMAL) Hemogram (03/05/2024 4:21 AM EDT) White Blood Cell 8.6 4.0 - 9.5 x10(3)/[facility] Red Blood Cell 4.62 4.58 - 5.54 x10(6)/mc L [facility] Hemoglobin 11.5(L) 13.7 - 16.5 g/dL [facility] Hematocrit 36.5(L) 40.5 - 48.5 % [facility] Mean Cell Volume 79.0(L) 82.9 - 93.1 fL [facility] Mean Cell Hemoglobin 24.9(L) 27.5 - 32.1 pg [facility] Mean Cell Hemoglobin Concentration 31.5(L) 32.0 - 35.7 g/dL [facility] Platelet 165 145 - 357 x10(3)/mc L [facility] RDW Standard Deviation 43.4 36.0 - 45.0 [facility] RDW coefficient of variation 15.1(H) 11.4 - 13.8 % [facility] Mean Platelet Volume 10.7 7.6 - 12.9 [facility] NRBC% auto 0.0 % [facility] NRBC Absolute 0.000 0.000 - 0.000 x10(3)/mc L [facility] Blood 03/05/2024 4:21 AM EDT 03/05/2024 4:39 AM EDT Narrative Resulting Agency Comment Spec In Lab Latonia Red MD HEMATOLOGY ORDERABLE S [facility] [place] [address] * (ABNORMAL) Comprehensive metabolic panel (non-fasting) (03/05/2024 4:21 AM EDT) Glucose 182 65 - 199 mg/dL [facility] Comment:Diabetes: >=200 mg/d L plus symptoms Blood Urea Nitrogen 6(L) 10 - 20 mg/dL [facility] Creatinine 0.80 0.80 - 1.50 mg/dL [facility] Sodium 135 135 - 145 mmol/L [facility] Potassium 3.3(L) 3.5 - 5.0 mmol/L [facility] Comment: Please note: ??Patients with WBC >100,000 may have falsely elevated Potassium levels. ??For accurate Potassium quantification in these patients send serum separator tube (gold top) for subsequent determinations. ??Contact the Clinical Chemistry Laboratory if there are any questions. Chloride 100 98 - 107 mmol/L [facility] Carbon Dioxide 26 22 - 31 mmol/L [facility] Anion Gap 9 5 - 15 mmol/L [facility] Calcium 8.1(L) 8.5 - 10.5 mg/dL [facility] Protein, Total 5.6(L) 6.1 - 8.0 g/dL [facility] Albumin 2.9(L) 3.2 - 5.2 g/dL [facility] Aspartate Aminotransferase 14 0 - 39 unit/L [facility] Alanine Aminotransferase 45 0 - 55 unit/L [facility] Alkaline Phosphatase 79 40 - 130 unit/L [facility] Bilirubin, Total 0.4 0.2 - 1.3 mg/dL [facility] Est Glomerular Filtration Rate 108 >=60 mL/min/1. 73 m?? [facility] Comment: This patient's estimated GFR [...] [facility]/ZIP Co de Phone Number [facility] [place] [address] * POCT Glucose (03/05/2024 12:28 AM EDT) Glucose, POC 166 65 - 199 mg/dL [facility] Comment: Supplemental ranges: <140 mg/dL before meals <180 mg/dL all other times of the day Blood 03/05/2024 12:2 8 AM EDT 03/05/2024 12:28 AM EDT Rudi Hernandez MD POINT OF CARE TEST O RDERABLES Performing Organization Address [facility] Co de Phone Number [facility] [place] [address] * POCT Glucose (03/04/2024 8:02 PM EDT) Glucose, POC 174 65 - 199 mg/dL [facility] Comment: Supplemental ranges: <140 mg/dL before meals <180 mg/dL all other times of the day Blood 03/04/2024 8:02 PM EDT 03/04/2024 8:02 PM EDT Rudi Hernandez MD POINT OF CARE TEST O RDERABLES Performing Organization Address [facility] Co de Phone Number [facility] [place] [address] * POCT Glucose (03/04/2024 4:18 PM EDT) Glucose, POC 174 65 - 199 mg/dL [facility] Comment: Supplemental ranges: <140 mg/dL before meals <180 mg/dL all other times of the day Blood 03/04/2024 4:18 PM EDT 03/04/2024 4:18 PM EDT Rudi Hernandez MD POINT OF CARE TEST O RDERAVANNESSA [facility] [place] [address] * POCT Glucose (03/04/2024 11:34 AM EDT) Glucose, POC 173 65 - 199 mg/dL [facility] Comment: Supplemental ranges: <140 mg/dL before meals <180 mg/dL all other times of the day Blood 03/04/2024 11:3 4 AM EDT 03/04/2024 11:34 AM EDT Rudi Hernandez MD POINT OF CARE TEST O RDERABLES [facility] [place] [address] * POCT Glucose (03/04/2024 7:30 AM EDT) Glucose, POC 185 65 - 199 mg/dL [facility] Comment: Supplemental ranges: <140 mg/dL before meals <180 mg/dL all other times of the day Blood 03/04/2024 7:30 AM EDT 03/04/2024 7:30 AM EDT Rudi Hernandez MD POINT OF CARE TEST O RDERABLES [facility] [place] [address] * (ABNORMAL) Differential, Automated (03/04/2024 6:12 AM EDT) Neutrophil % 85.5 % [facility] Neutrophil Absolute 9.96(H) 1.70 - 6.10 x10(3)/mc L [facility] Lymph % 7.7 % [facility] Lymphocytes Abs 0.9 0.9 - 3.2 x10(3)/mc L [facility] Monocyte % 5.3 % [facility] Monocyte Abs 0.6 0.3 - 0.9 x10(3)/mc L [facility] Eos % 0.7 % [facility] Eosinophils Abs 0.1 0.0 - 0.4 x10(3)/[facility] Basophil % 0.3 % [facility] Baso Absolute 0.0 0.0 - 0.1 x10(3)/[facility] Immature Gran % 0.50 % [facility] Comment: Immature granulocytes(IG's)percentage and absolute count will include metamyelocytes, myelocytes, and promyelocytes. Blood smears from CBCs yielding IG's will be scanned manually for concordance. If this scan disagrees with the automated IG or if promyelocytes are noted, a manual differential will be performed. Immature Gran Absolute 0.06(H) 0.00 - 0.04 x10(3)/[facility] Blood 03/04/2024 6:12 AM EDT 03/04/2024 6:53 AM EDT Narrative Resulting Agency Comment Spec In Lab Latonia Red MD HEMATOLOGY ORDERABLE S [facility] [place] [address] * (ABNORMAL) Hemogram (03/04/2024 6:12 AM EDT) White Blood Cell 11.6(H) 4.0 - 9.5 x10(3)/[facility] Red Blood Cell 4.72 4.58 - 5.54 x10(6)/[facility] Hemoglobin 11.7(L) 13.7 - 16.5 g/dL [facility] Hematocrit 37.1(L) 40.5 - 48.5 % [facility] Mean Cell Volume 78.6(L) 82.9 - 93.1 fL [facility] Mean Cell Hemoglobin 24.8(L) 27.5 - 32.1 pg [facility] Mean Cell Hemoglobin Concentration 31.5(L) 32.0 - 35.7 g/dL [facility] Platelet 165 145 - 357 x10(3)/mc L [facility] RDW Standard Deviation 44.1 36.0 - 45.0 fL [facility] RDW coefficient of variation 15.3(H) 11.4 - 13.8 % [facility] Mean Platelet Volume 10.7 7.6 - 12.9 fL [facility] NRBC% auto 0.0 % [facility] NRBC Absolute 0.000 0.000 - 0.000 x10(3)/mc L [facility] Blood 03/04/2024 6:12 AM EDT 03/04/2024 6:53 AM EDT Narrative Resulting Agency Comment Spec In Lab Latonia Red MD HEMATOLOGY ORDERABLE S [facility] [place] [address] * (ABNORMAL) Comprehensive metabolic panel (non-fasting) (03/04/2024 6:12 AM EDT) Glucose 204(H) 65 - 199 mg/dL [facility] Comment:Diabetes: >=200 mg/d L plus symptoms Blood Urea Nitrogen 8(L) 10 - 20 mg/dL [facility] Creatinine 0.76(L) 0.80 - 1.50 mg/dL [facility] Sodium 135 135 - 145 mmol/L [facility] Potassium 3.5 3.5 - 5.0 mmol/L [facility] Comment: Please note: ??Patients with WBC >100,000 may have falsely elevated Potassium levels. ??For accurate Potassium quantification in these patients send serum separator tube (gold top) for subsequent determinations. ??Contact the Clinical Chemistry Laboratory if there are any questions. Chloride 100 98 - 107 mmol/L [facility] Carbon Dioxide 25 22 - 31 mmol/L [facility] Anion Gap 10 5 - 15 mmol/L [facility] Calcium 8.3(L) 8.5 - 10.5 mg/dL [facility] Protein, Total 5.6(L) 6.1 - 8.0 g/dL [facility] Albumin 3.0(L) 3.2 - 5.2 g/dL [facility] Aspartate Aminotransferase 19 0 - 39 unit/L [facility] Alanine Aminotransferase 68(H) 0 - 55 unit/L [facility] Alkaline Phosphatase 84 40 - 130 unit/L [facility] Bilirubin, Total 0.4 0.2 - 1.3 mg/dL [facility] Est Glomerular Filtration Rate 110 >=60 mL/min/1. 73 m?? [facility] Comment: This patient's estimated GFR [...] In Lab Rudi Hernandez MD CHEMISTRY ORDERABLES [facility] [place] [address] * Amylase Level Body Fluid BASIA Drain (03/04/2024 5:30 AM EDT) Amylase, Fluid 395 unit/L [facility] Comment: Reference intervals are unavailable for this test in body fluids. Comparison of this result with the concentration in blood, serum, or plasma is recommended. This test has not been cleared by the [place] FDA. Performance characteristics of this test for the analysis of body fluids were determined by [facility] in accordance with CLIA requirements. This laboratory is qualified under CLIA to perform high-complexity testing. Amylase BF Type BASIA Drain [facility] BASIA Drain 03/04/2024 5:30 AM EDT 03/04/2024 5:41 AM EDT Narrative Resulting Agency Comment Spec In Lab Rudi Hernandez MD BODY FLUIDS AND STOO LS ORDERABLES Performing Organization Address City/[facility]/ZIP Co de Phone Number [facility] [place] [address] * POCT Glucose (03/04/2024 5:15 AM EDT) Glucose, POC 171 65 - 199 mg/dL [facility] Comment: Supplemental ranges: <140 mg/dL before meals <180 mg/dL all other times of the day Blood 03/04/2024 5:15 AM EDT 03/04/2024 5:15 AM EDT Rudi Hernandez MD POINT OF CARE TEST O RDERABLES Performing Organization Address [facility]/ZIP Co de Phone Number [facility] [place] [address] * POCT Glucose (03/03/2024 11:19 PM EDT) Glucose, POC 181 65 - 199 mg/dL [facility] Comment: Supplemental ranges: <140 mg/dL before meals <180 mg/dL all other times of the day Blood 03/03/2024 11:1 9 PM EDT 03/03/2024 11:19 PM EDT Rudi Hernandez MD POINT OF CARE TEST O RDERABLES Performing Organization Address City/[facility]/ZIP Co de Phone Number [facility] [place] [address] * POCT Glucose (03/03/2024 8:31 PM EDT) Glucose, POC 181 65 - 199 mg/dL [facility] Comment: Supplemental ranges: <140 mg/dL before meals <180 mg/dL all other times of the day Blood 03/03/2024 8:31 PM EDT 03/03/2024 8:31 PM EDT Rudi Hernandez MD POINT OF CARE TEST O RDLIAT Performing Organization Address [facility]/ZIP Co de Phone Number [facility] [place] [address] * POCT Glucose (03/03/2024 3:59 PM EDT) Glucose, POC 174 65 - 199 mg/dL [facility] Comment: Supplemental ranges: <140 mg/dL before meals <180 mg/dL all other times of the day Blood 03/03/2024 3:59 PM EDT 03/03/2024 3:59 PM EDT Rudi Hernandez MD POINT OF CARE TEST O ELKIN Performing Organization Address City/[facility]/ZIP Co de Phone Number [facility] [place] [address] * (ABNORMAL) Basic Metabolic Panel (non-fasting) (03/03/2024 1:13 PM EDT) Glucose 175 65 - 199 mg/dL [facility] Comment:Diabetes: >=200 mg/d L plus symptoms Blood Urea Nitrogen 11 10 - 20 mg/dL [facility] Creatinine 0.79(L) 0.80 - 1.50 mg/dL [facility] Sodium 137 135 - 145 mmol/L [facility] Potassium 3.6 3.5 - 5.0 mmol/L [facility] Comment: Please note: ??Patients with WBC >100,000 may have falsely elevated Potassium levels. ??For accurate Potassium quantification in these patients send serum separator tube (gold top) for subsequent determinations. ??Contact the Clinical Chemistry Laboratory if there are any questions. Chloride 103 98 - 107 mmol/L [facility] Carbon Dioxide 25 22 - 31 mmol/L [facility] Anion Gap 9 5 - 15 mmol/L [facility] Calcium 8.2(L) 8.5 - 10.5 mg/dL [facility] Est Glomerular Filtration Rate 109 >=60 mL/min/1. 73 m?? [facility] Comment: This patient's estimated GFR [...] In Lab Rudi Hernandez MD CHEMISTRY ORDERABLES [facility] [place] [address] * POCT Glucose (03/03/2024 12:20 PM EDT) Glucose, POC 156 65 - 199 mg/dL [facility] Comment: Supplemental ranges: <140 mg/dL before meals <180 mg/dL all other times of the day Blood 03/03/2024 12:2 0 PM EDT 03/03/2024 12:20 PM EDT Rudi Hernandez MD POINT OF CARE TEST O RDERABLES [facility] [place] [address] * Amylase Level Body Fluid (03/03/2024 11:40 AM EDT) Amylase, Fluid 645 unit/L [facility] Comment: Reference intervals are unavailable for this test in body fluids. Comparison of this result with the concentration in blood, serum, or plasma is recommended. This test has not been cleared by the [place] FDA. Performance characteristics of this test for the analysis of body fluids were determined by [facility] in accordance with CLIA requirements. This laboratory is qualified under CLIA to perform high-complexity testing. Amylase BF Type BASIA Drain [facility] BASIA Drain Other / Unknown 03/03/2024 1 1:40 AM EDT 03/03/2024 11:50 AM EDT Narrative Resulting Agency Comment Spec In Lab Latonia Red MD BODY FLUIDS AND STOO LS ORDERABLES [facility] [place] [address] * POCT Glucose (03/03/2024 8:08 AM EDT) Glucose, POC 166 65 - 199 mg/dL [facility] Comment: Supplemental ranges: <140 mg/dL before meals <180 mg/dL all other times of the day Blood 03/03/2024 8:08 AM EDT 03/03/2024 8:08 AM EDT Rudi Hernandez MD POINT OF CARE TEST O RDERABLES Performing Organization Address City/[facility]/ZIP Co de Phone Number [facility] [place] [address] * POCT Glucose (03/03/2024 3:57 AM EDT) Glucose, POC 159 65 - 199 mg/dL [facility] Comment: Supplemental ranges: <140 mg/dL before meals <180 mg/dL all other times of the day Blood 03/03/2024 3:57 AM EDT 03/03/2024 3:57 AM EDT Rudi Hernandez MD POINT OF CARE TEST O RDERAVANNESSA [facility] [place] [address] * Creatinine, urine, random (03/03/2024 1:19 AM EDT) Creatinine, Urine 288 mg/dL [facility] Urine 03/03/2024 1:19 AM EDT 03/03/2024 1:28 AM EDT Narrative Resulting Agency Comment Spec In Lab Rudi Hernandez MD URINE ORDERABLES Performing Organization Address City/[facility]/ZIP Co de Phone Number [facility] [place] [address] * Sodium, urine, random (03/03/2024 1:19 AM EDT) Sodium, Urine <20 mmol/L [facility] Urine 03/03/2024 1:19 AM EDT 03/03/2024 1:28 AM EDT Narrative Resulting Agency Comment Spec In Lab Rudi Hernandez MD URINE ORDERABLES Performing Organization Address City/[facility]/ZIP Co de Phone Number [facility] [place] [address] * Green Tube HOLD (03/03/2024 1:04 AM EDT) Green Hold Sample in lab. [facility] Blood Venous Draw / Unknown 03/03/2024 1:04 AM EDT 03/03/2024 1:12 AM EDT Latonia Red MD CHEMISTRY ORDERABLES Performing Organization Address City/[facility]/ZIP Co de Phone Number [facility] [place] [address] * (ABNORMAL) Differential, Automated (03/03/2024 1:04 AM EDT) Neutrophil % 85.5 % [facility] Neutrophil Absolute 13.27(H) 1.70 - 6.10 x10(3)/[facility] Lymph % 7.5 % [facility] Lymphocytes Abs 1.2 0.9 - 3.2 x10(3)/[facility] Monocyte % 6.0 % [facility] Monocyte Abs 0.9 0.3 - 0.9 x10(3)/[facility] Eos % 0.2 % [facility] Eosinophils Abs 0.0 0.0 - 0.4 x10(3)/[facility] Basophil % 0.2 % [facility] Baso Absolute 0.0 0.0 - 0.1 x10(3)/[facility] Immature Gran % 0.60 % [facility] Comment: Immature granulocytes(IG's)percentage and absolute count will include metamyelocytes, myelocytes, and promyelocytes. Blood smears from CBCs yielding IG's will be scanned manually for concordance. If this scan disagrees with the automated IG or if promyelocytes are noted, a manual differential will be performed. Immature Gran Absolute 0.10(H) 0.00 - 0.04 x10(3)/[facility] Blood 03/03/2024 1:04 AM EDT 03/03/2024 1:11 AM EDT Narrative Resulting Agency Comment Spec In Lab Kamryn Kim MD HEMATOLOGY ORDERA BLES [facility] [place] [address] * (ABNORMAL) Hemogram (03/03/2024 1:04 AM EDT) White Blood Cell 15.5(H) 4.0 - 9.5 x10(3)/[facility] Red Blood Cell 4.81 4.58 - 5.54 x10(6)/[facility] Hemoglobin 11.7(L) 13.7 - 16.5 g/dL [facility] Hematocrit 37.2(L) 40.5 - 48.5 % [facility] Mean Cell Volume 77.3(L) 82.9 - 93.1 fL [facility] Mean Cell Hemoglobin 24.3(L) 27.5 - 32.1 pg [facility] Mean Cell Hemoglobin Concentration 31.5(L) 32.0 - 35.7 g/dL [facility] Platelet 169 145 - 357 x10(3)/mc L [facility] RDW Standard Deviation 43.7 36.0 - 45.0 fL [facility] RDW coefficient of variation 15.5(H) 11.4 - 13.8 % [facility] Mean Platelet Volume 10.9 7.6 - 12.9 fL [facility] NRBC% auto 0.0 % [facility] NRBC Absolute 0.000 0.000 - 0.000 x10(3)/mc L [facility] Blood 03/03/2024 1:04 AM EDT 03/03/2024 1:11 AM EDT Narrative Resulting Agency Comment Spec In Lab Kamryn Kim MD HEMATOLOGY ORDERA BLES Performing Organization Address City/[facility] Foundation/ZIP Co de Phone Number [facility] [place] [place] [address] * Lactate, whole blood, send to lab ([facility]) (03/03/2024 1:04 AM EDT) Lactate WB 1.5 0.5 - 2.2 mmol/L [facility] Blood 03/03/2024 1:04 AM EDT 03/03/2024 1:11 AM EDT Narrative Resulting Agency Comment Spec In Lab Rudi Hernandez MD CHEMISTRY ORDERABLES Performing Organization Address City/[facility]/ZIP Co de Phone Number [facility] [place] [address] * (ABNORMAL) Phosphorus (03/03/2024 1:04 AM EDT) Phosphorus 2.2(L) 2.5 - 4.5 mg/dL [facility] Blood 03/03/2024 1:04 AM EDT 03/03/2024 1:11 AM EDT Narrative Resulting Agency Comment Spec In Lab Rudi Hernandez MD CHEMISTRY ORDERABLES [facility] [place] [address] * Magnesium (03/03/2024 1:04 AM EDT) Magnesium 0.78 0.69 - 1.07 mmol/L [facility] Blood 03/03/2024 1:04 AM EDT 03/03/2024 1:11 AM EDT Narrative Resulting Agency Comment Spec In Lab Rudi Hernandez MD CHEMISTRY ORDERABLES Performing Organization Address City/[facility]/ZIP Co de Phone Number [facility] [place] [address] * (ABNORMAL) Comprehensive metabolic panel (non-fasting) (03/03/2024 1:04 AM EDT) Glucose 192 65 - 199 mg/dL [facility] Comment:Diabetes: >=200 mg/d L plus symptoms Blood Urea Nitrogen 16 10 - 20 mg/dL [facility] Creatinine 1.16 0.80 - 1.50 mg/dL [facility] Sodium 137 135 - 145 mmol/L [facility] Potassium 3.9 3.5 - 5.0 mmol/L [facility] Comment: result rechecked-RSG Please note: ??Patients with WBC >100,000 may have falsely elevated Potassium levels. ??For accurate Potassium quantification in these patients send serum separator tube (gold top) for subsequent determinations. ??Contact the Clinical Chemistry Laboratory if there are any questions. Chloride 101 98 - 107 mmol/L [facility] Carbon Dioxide 24 22 - 31 mmol/L [facility] Anion Gap 12 5 - 15 mmol/L [facility] Calcium 8.1(L) 8.5 - 10.5 mg/dL [facility] Protein, Total 5.3(L) 6.1 - 8.0 g/dL [facility] Albumin 2.9(L) 3.2 - 5.2 g/dL [facility] Aspartate Aminotransferase 64(H) 0 - 39 unit/L [facility] Alanine Aminotransferase 111(H) 0 - 55 unit/L [facility] Alkaline Phosphatase 83 40 - 130 unit/L [facility] Bilirubin, Total 0.6 0.2 - 1.3 mg/dL [facility] Est Glomerular Filtration Rate 77 >=60 mL/min/1. 73 m?? [facility] Comment: This patient's estimated GFR [...] In Lab Rudi Hernandez MD CHEMISTRY ORDERABLES [facility] [place] [address] * POCT Glucose (03/02/2024 10:59 PM EDT) Glucose, POC 181 65 - 199 mg/dL [facility] Comment: Supplemental ranges: <140 mg/dL before meals <180 mg/dL all other times of the day Blood 03/02/2024 10:5 9 PM EDT 03/02/2024 10:59 PM EDT Rudi Hernandez MD POINT OF CARE TEST O RDERABLES [facility] [place] [place] [address] * XR Abdomen 1 view (Generic) (03/02/2024 9:54 PM EDT) WORKSTATION ID [id number] RAD Anatomical Region Laterality Modality Abdomen N/A [...] who have questions please contact the health acute care clinical nurse specialist that requested your imaging first. ? Electronically signed by: Maryan Lagos MD, [facility] ([phone]), at 03/02/2024 10:20 PM Narrative 03/02/2024 10:20 [...] patients who have questions please contactthe health acute care clinical nurse specialist that requested your imaging first. Electronically signed by: Maryan Lagos MD, [facility]([phone]), at 03/02/2024 10:20 PM Rudi Hernandez MD IMG DX ORDERABLES * POCT Glucose (03/02/2024 7:41 PM EDT) [facility] Signature Glucose, POC 186 65 - 199 mg/dL [facility] Comment: Supplemental ranges: <140 mg/dL before meals <180 mg/dL all other times of the day Blood 03/02/2024 7:41 PM EDT 03/02/2024 7:41 PM EDT Rudi Hernandez MD POINT OF CARE TEST O RDERABLES [facility] [place] [address] * XR Abdomen 1 view (Generic) (03/02/2024 7:38 PM EDT) WORKSTATION ID [id number] RAD Anatomical Region Laterality Modality Abdomen N/A [...] who have questions please contact the health acute care clinical nurse specialist that requested your imaging first. ? Electronically signed by: Atif Christine MD, [facility] ([phone]), at 03/02/2024 7:41 PM Narrative 03/02/2024 7:41 [...] patients who have questions please contactthe health acute care clinical nurse specialist that requested your imaging first. Electronically signed by: Atif Christine MD, [facility]([phone]), at 03/02/2024 7:41 PM Rudi Hernandez MD IMG DX ORDERABLES * POCT Glucose (03/02/2024 4:00 PM EDT) Glucose, POC 179 65 - 199 mg/dL [facility] Comment: Supplemental ranges: <140 mg/dL before meals <180 mg/dL all other times of the day Blood 03/02/2024 4:00 PM EDT 03/02/2024 4:00 PM EDT Rudi Hernandez MD POINT OF CARE TEST Yoel GRANGER Performing Organization Address [facility] Co de Phone Number [facility] [place] [address] * POCT Glucose (03/02/2024 11:12 AM EDT) Glucose, POC 183 65 - 199 mg/dL [facility] Comment: Supplemental ranges: <140 mg/dL before meals <180 mg/dL all other times of the day Blood 03/02/2024 11:1 2 AM EDT 03/02/2024 11:12 AM EDT Rudi Hernandez MD POINT OF CARE TEST O RDERABLES Performing Organization Address [facility]/ZIP Co de Phone Number [facility] [place] [address] * POCT Glucose (03/02/2024 7:48 AM EDT) Glucose, POC 170 65 - 199 mg/dL [facility] Comment: Supplemental ranges: <140 mg/dL before meals <180 mg/dL all other times of the day Blood 03/02/2024 7:48 AM EDT 03/02/2024 7:48 AM EDT Rudi Hernandez MD POINT OF CARE TEST O RDERABLES Performing Organization Address [facility] Co de Phone Number [facility] [place] [address] * (ABNORMAL) Aspartate Aminotransferase (03/02/2024 5:27 AM EDT) [facility] Aspartate Aminotransferase 89(H) 0 - 39 unit/L [facility] Blood 03/02/2024 5:27 AM EDT 03/02/2024 6:06 AM EDT Narrative Resulting Agency Comment Spec In Lab Rudi Hernandez MD CHEMISTRY ORDERABLES Performing Organization Address [facility] Co de Phone Number [facility] [place] [address] * (ABNORMAL) Hemoglobin A1c (03/02/2024 4:30 AM EDT) Pathologist [facility] Hemoglobin A1c 8.9(H) 4.3 - 5.6 % [facility] Comment: Reference Range: 4.3 - [...] Mellitus, Diabetes Care 2013; 36: Suppl. 1, S67-81 Estimated Average Glucose 208 mg/dL [facility] Blood Venous Draw / Unknown 03/02/2024 4:30 AM EDT 03/02/2024 1:54 PM EDT Narrative Resulting Agency Comment Spec In Lab Munira Berry APRN CHEMISTRY ORDERABLES [facility] [place] [address] * (ABNORMAL) Differential, Automated (03/02/2024 4:30 AM EDT) Neutrophil % 84.4 % [facility] Neutrophil Absolute 10.79(H) 1.70 - 6.10 x10(3)/mc L [facility] Lymph % 9.7 % [facility] Lymphocytes Abs 1.2 0.9 - 3.2 x10(3)/ L [facility] Monocyte % 5.1 % [facility] Monocyte Abs 0.6 0.3 - 0.9 x10(3)/ L [facility] Eos % 0.1 % [facility] Eosinophils Abs 0.0 0.0 - 0.4 x10(3)/ L [facility] Basophil % 0.2 % [facility] Baso Absolute 0.0 0.0 - 0.1 x10(3)/ L [facility] Immature Gran % 0.50 % [facility] Comment: Immature granulocytes(IG's)percentage and absolute count will include metamyelocytes, myelocytes, and promyelocytes. Blood smears from CBCs yielding IG's will be scanned manually for concordance. If this scan disagrees with the automated IG or if promyelocytes are noted, a manual differential will be performed. Immature Gran Absolute 0.06(H) 0.00 - 0.04 x10(3)/mc L [facility] Blood 03/02/2024 4:30 AM EDT 03/02/2024 4:36 AM EDT Narrative Resulting Agency Comment Spec In Lab Latonia Red MD HEMATOLOGY ORDERABLE S [facility] [place] [address] * (ABNORMAL) Hemogram (03/02/2024 4:30 AM EDT) White Blood Cell 12.8(H) 4.0 - 9.5 x10(3)/mc L [facility] Red Blood Cell 5.41 4.58 - 5.54 x10(6)/mc L [facility] Hemoglobin 13.3(L) 13.7 - 16.5 g/dL [facility] Hematocrit 41.9 40.5 - 48.5 % [facility] Mean Cell Volume 77.4(L) 82.9 - 93.1 fL [facility] Mean Cell Hemoglobin 24.6(L) 27.5 - 32.1 pg [facility] Mean Cell Hemoglobin Concentration 31.7(L) 32.0 - 35.7 g/dL [facility] Platelet 205 145 - 357 x10(3)/mc L [facility] RDW Standard Deviation 41.8 36.0 - 45.0 [facility] RDW coefficient of variation 15.2(H) 11.4 - 13.8 % [facility] Mean Platelet Volume 11.2 7.6 - 12.9 [facility] NRBC% auto 0.0 % [facility] NRBC Absolute 0.000 0.000 - 0.000 x10(3)/mc L [facility] Blood 03/02/2024 4:30 AM EDT 03/02/2024 4:36 AM EDT Narrative Resulting Agency Comment Spec In Lab Latonia Red MD HEMATOLOGY ORDERABLE S [facility] [place] [address] * (ABNORMAL) Comprehensive metabolic panel (non-fasting) (03/02/2024 4:30 AM EDT) Glucose 199 65 - 199 mg/dL [facility] Comment:Diabetes: >=200 mg/d L plus symptoms Blood Urea Nitrogen 11 10 - 20 mg/dL [facility] Creatinine 0.80 0.80 - 1.50 mg/dL [facility] Sodium 135 135 - 145 mmol/L [facility] Potassium 5.0 3.5 - 5.0 mmol/L [facility] Comment: Please note: ??Patients with WBC >100,000 may have falsely elevated Potassium levels. ??For accurate Potassium quantification in these patients send serum separator tube (gold top) for subsequent determinations. ??Contact the Clinical Chemistry Laboratory if there are any questions. Chloride 103 98 - 107 mmol/L [facility] Carbon Dioxide 24 22 - 31 mmol/L [facility] Anion Gap 8 5 - 15 mmol/L [facility] Calcium 7.9(L) 8.5 - 10.5 mg/dL [facility] Protein, Total 5.4(L) 6.1 - 8.0 g/dL [facility] Albumin 2.8(L) 3.2 - 5.2 g/dL [facility] Aspartate Aminotransferase Not Perf 0 - 39 [facility] Comment: Unable to quantitate due to sample hemolysis. ??Sample redraw suggested. Called by: , Read back by: Angelita Ingram, Date/Time:03/02/24 05:18. Alanine Aminotransferase 128(H) 0 - 55 unit/L [facility] Alkaline Phosphatase 97 40 - 130 unit/L [facility] Bilirubin, Total 0.9 0.2 - 1.3 mg/dL [facility] Est Glomerular Filtration Rate 108 >=60 mL/min/1. 73 m?? [facility] Comment: This patient's estimated GFR [...] Hernandez MD CHEMISTRY ORDERABLES Performing Organization Address [facility] Co de Phone Number [facility] [place] [address] * POCT Glucose (03/02/2024 4:26 AM EDT) Glucose, POC 172 65 - 199 mg/dL [facility] Comment: Supplemental ranges: <140 mg/dL before meals <180 mg/dL all other times of the day Blood 03/02/2024 4:26 AM EDT 03/02/2024 4:26 AM EDT Rudi Hernandez MD POINT OF CARE TEST O RDERAVANNESSA Performing Organization Address [facility] Co de Phone Number [facility] [place] [address] * POCT Glucose (03/02/2024 12:12 AM EDT) Glucose, POC 190 65 - 199 mg/dL [facility] Comment: Supplemental ranges: <140 mg/dL before meals <180 mg/dL all other times of the day Blood 03/02/2024 12:1 2 AM EDT 03/02/2024 12:12 AM EDT Rudi Hernandez MD POINT OF CARE TEST O ELKIN Performing Organization Address [facility] Co de Phone Number [facility] [place] [address] * (ABNORMAL) POCT Glucose (03/01/2024 7:55 PM EDT) Pathologist [facility] Glucose, POC 233(H) 65 - 199 mg/dL [facility] Comment: Supplemental ranges: <140 mg/dL before meals <180 mg/dL all other times of the day Blood 03/01/2024 7:55 PM EDT 03/01/2024 7:55 PM EDT Rudi Hernandez MD POINT OF CARE TEST O RDERABLES [facility] [place] [address] * (ABNORMAL) Differential, Automated (03/01/2024 7:02 PM EDT) [facility] Neutrophil % 91.5 % [facility] Neutrophil Absolute 14.04(H) 1.70 - 6.10 x10(3)/mc L [facility] Lymph % 3.7 % [facility] Lymphocytes Abs 0.6(L) 0.9 - 3.2 x10(3)/mc L [facility] Monocyte % 4.2 % [facility] Monocyte Abs 0.6 0.3 - 0.9 x10(3)/mc L [facility] Eos % 0.0 % [facility] Eosinophils Abs 0.0 0.0 - 0.4 x10(3)/mc L [facility] Basophil % 0.1 % [facility] Baso Absolute 0.0 0.0 - 0.1 x10(3)/mc L [facility] Immature Gran % 0.50 % [facility] Comment: Immature granulocytes(IG's)percentage and absolute count will include metamyelocytes, myelocytes, and promyelocytes. Blood smears from CBCs yielding IG's will be scanned manually for concordance. If this scan disagrees with the automated IG or if promyelocytes are noted, a manual differential will be performed. Immature Gran Absolute 0.07(H) 0.00 - 0.04 x10(3)/ L [facility] Blood 03/01/2024 7:02 PM EDT 03/01/2024 7:06 PM EDT Narrative Resulting Agency Comment Spec In Lab Latonia Red MD HEMATOLOGY ORDERABLE S [facility] [place] [address] * (ABNORMAL) Hemogram (03/01/2024 7:02 PM EDT) White Blood Cell 15.3(H) 4.0 - 9.5 x10(3)/[facility] Red Blood Cell 5.64(H) 4.58 - 5.54 x10(6)/[facility] Hemoglobin 14.1 13.7 - 16.5 g/dL [facility] Hematocrit 43.4 40.5 - 48.5 % [facility] Mean Cell Volume 77.0(L) 82.9 - 93.1 [facility] Mean Cell Hemoglobin 25.0(L) 27.5 - 32.1 pg [facility] Mean Cell Hemoglobin Concentration 32.5 32.0 - 35.7 g/dL [facility] Platelet 218 145 - 357 x10(3)/[facility] RDW Standard Deviation 41.1 36.0 - 45.0 [facility] RDW coefficient of variation 14.8(H) 11.4 - 13.8 % [facility] Mean Platelet Volume 10.5 7.6 - 12.9 [facility] NRBC% auto 0.0 % [facility] NRBC Absolute 0.000 0.000 - 0.000 x10(3)/ L [facility] Blood 03/01/2024 7:02 PM EDT 03/01/2024 7:06 PM EDT Narrative Resulting Agency Comment Spec In Lab Latonia Red MD HEMATOLOGY ORDERABLE S [facility] [place] [address] * (ABNORMAL) Comprehensive metabolic panel (non-fasting) (03/01/2024 7:02 PM EDT) Glucose 216(H) 65 - 199 mg/dL [facility] Comment:Diabetes: >=200 mg/d L plus symptoms Blood Urea Nitrogen 9(L) 10 - 20 mg/dL [facility] Creatinine 0.80 0.80 - 1.50 mg/dL [facility] Sodium 135 135 - 145 mmol/L [facility] Potassium 4.9 3.5 - 5.0 mmol/L [facility] Comment: Please note: ??Patients with WBC >100,000 may have falsely elevated Potassium levels. ??For accurate Potassium quantification in these patients send serum separator tube (gold top) for subsequent determinations. ??Contact the Clinical Chemistry Laboratory if there are any questions. Chloride 103 98 - 107 mmol/L [facility] Carbon Dioxide 22 22 - 31 mmol/L [facility] Anion Gap 10 5 - 15 mmol/L [facility] Calcium 8.2(L) 8.5 - 10.5 mg/dL [facility] Protein, Total 5.7(L) 6.1 - 8.0 g/dL [facility] Albumin 3.3 3.2 - 5.2 g/dL [facility] Aspartate Aminotransferase 182(H) 0 - 39 unit/L [facility] Alanine Aminotransferase 148(H) 0 - 55 unit/L [facility] Alkaline Phosphatase 106 40 - 130 unit/L [facility] Bilirubin, Total 2.2(H) 0.2 - 1.3 mg/dL [facility] Est Glomerular Filtration Rate 108 >=60 mL/min/1. 73 m?? [facility] Comment: This patient's estimated GFR [...] Hernandez MD CHEMISTRY ORDERABLES Performing Organization Address [facility]/ZIP Co de Phone Number [facility] [place] [address] * POCT Glucose (03/01/2024 6:44 PM EDT) Glucose, POC 156 65 - 199 mg/dL [facility] Comment: Supplemental ranges: <140 mg/dL before meals <180 mg/dL all other times of the day Blood 03/01/2024 6:44 PM EDT 03/01/2024 6:44 PM EDT Rudi Hernandez MD POINT OF CARE TEST O RDERABLES [facility] [place] [place] [address] * (ABNORMAL) BLOOD GAS 2 ARTERIAL (03/01/2024 5:49 PM EDT) pH, Arterial 7.40 7.35 - 7.45 [facility] PCO2, Arterial 35 35 - 45 mmHg [facility] PO2, Arterial 188(H) 85 - 104 mmHg [facility] Bicarbonate, Arterial 21.3 20.0 - 26.0 mmol/L [facility] Base Excess, Arterial -3.6(L) -3.0 - 3.0 mmol/L [facility] Hgb Blood Gas 14.6 13.7 - 16.5 g/dL [facility] Oxyhemoglobin, Arterial 97.8(H) 94.0 - 97.0 % [facility] Carboxyhemoglob in, Arterial 1.3 % [facility] Comment: Nonsmokers: 0.5-1.5% COHB Smokers: Variable, but usually less than 10% Toxic: 20-30% COHB Lethal: Greater than 60% COHB Methemoglobin, Arterial 0.3 <=1.5 % [facility] Na Whole Blood 131(L) 135 - 145 mmol/L [facility] K Whole Blood 4.3 3.5 - 5.0 mmol/L [facility] Comment: Please note: Patients with WBC >100,000 may have falsely elevated Potassium levels. Contact the Clinical Chemistry Laboratory if there are any questions. ICa Whole Blood 1.12(L) 1.15 - 1.33 mmol/L [facility] Comment: Note: ??Total bilirubin higher than 20 mg/dL may lead to falsely low ionized calcium. CL Whole Blood 102 98 - 107 mmol/L [facility] Gluc Whole Bld 162 65 - 199 mg/dL [facility] Comment:Diabetes: >=200 mg/d L plus symptoms. Lactate WB 2.2 0.5 - 2.2 mmol/L [facility] Blood 03/01/2024 5:49 PM EDT 03/01/2024 5:49 PM EDT Rudi Hernandez MD POINT OF CARE TEST O RDERABLES [facility] [place] [address] * POCT Glucose (03/01/2024 5:02 PM EDT) Glucose, POC 125 65 - 199 mg/dL [facility] Comment: Supplemental ranges: <140 mg/dL before meals <180 mg/dL all other times of the day Blood 03/01/2024 5:02 PM EDT 03/01/2024 5:02 PM EDT Rudi Hernandez MD POINT OF CARE TEST O RDERABLES [facility] [place] [address] * POCT Glucose (03/01/2024 4:07 PM EDT) Glucose, POC 125 65 - 199 mg/dL [facility] Comment: Supplemental ranges: <140 mg/dL before meals <180 mg/dL all other times of the day Blood 03/01/2024 4:07 PM EDT 03/01/2024 4:07 PM EDT Rudi Hernandez MD POINT OF CARE TEST O RDERAVANNESSA Performing Organization Address City/[facility]/ZIP Co de Phone Number [facility] [place] [address] * Specimen to Pathology (03/01/2024 3:40 PM EDT) AP Specimen 03/01/2024 3:40 PM EDT 03/01/2024 3:40 PM EDT Narrative [facility] - 03/01/2024 3:40 PM EDT Specimen requisition ordered. ??Separate Pathology report to follow Rudi Hernandez MD PATHOLOGY/CYTOLOGY O RDERABLES [facility] [place] [address] * POCT Glucose (03/01/2024 2:58 PM EDT) Glucose, POC 150 65 - 199 mg/dL [facility] Comment: Supplemental ranges: <140 mg/dL before meals <180 mg/dL all other times of the day Blood 03/01/2024 2:58 PM EDT 03/01/2024 2:58 PM EDT Rudi Hernandez MD POINT OF CARE TEST O RDERABLES [facility] [place] [address] * (ABNORMAL) BLOOD GAS 2 ARTERIAL (03/01/2024 2:58 PM EDT) pH, Arterial 7.41 7.35 - 7.45 [facility] PCO2, Arterial 39 35 - 45 mmHg [facility] PO2, Arterial 204(H) 85 - 104 mmHg [facility] Bicarbonate, Arterial 23.9 20.0 - 26.0 mmol/L [facility] Base Excess, Arterial -0.8 -3.0 - 3.0 mmol/L [facility] Hgb Blood Gas 14.5 13.7 - 16.5 g/dL [facility] Oxyhemoglobin, Arterial 98.0(H) 94.0 - 97.0 % [facility] Carboxyhemoglob in, Arterial 1.2 % [facility] Comment: Nonsmokers: 0.5-1.5% COHB Smokers: Variable, but usually less than 10% Toxic: 20-30% COHB Lethal: Greater than 60% COHB Methemoglobin, Arterial 0.3 <=1.5 % [facility] Na Whole Blood 135 135 - 145 mmol/L [facility] K Whole Blood 4.0 3.5 - 5.0 mmol/L [facility] Comment: Please note: Patients with WBC >100,000 may have falsely elevated Potassium levels. Contact the Clinical Chemistry Laboratory if there are any questions. ICa Whole Blood 1.10(L) 1.15 - 1.33 mmol/L [facility] Comment: Note: ??Total bilirubin higher than 20 mg/dL may lead to falsely low ionized calcium. CL Whole Blood 104 98 - 107 mmol/L [facility] Gluc Whole Bld 175 65 - 199 mg/dL [facility] Comment:Diabetes: >=200 mg/d L plus symptoms. Lactate WB 2.1 0.5 - 2.2 mmol/L [facility] Blood 03/01/2024 2:58 PM EDT 03/01/2024 2:58 PM EDT Rudi Hernandez MD POINT OF CARE TEST O ELKIN [facility] [place] [address] * POCT Glucose (03/01/2024 2:02 PM EDT) Glucose, POC 147 65 - 199 mg/dL [facility] Comment: Supplemental ranges: <140 mg/dL before meals <180 mg/dL all other times of the day Blood 03/01/2024 2:02 PM EDT 03/01/2024 2:02 PM EDT Rudi Hernandez MD POINT OF CARE TEST O ELKIN Performing Organization Address [facility]/ZIP Co de Phone Number [facility] [place] [address] * POCT Glucose (03/01/2024 1:00 PM EDT) Glucose, POC 138 65 - 199 mg/dL [facility] Comment: Supplemental ranges: <140 mg/dL before meals <180 mg/dL all other times of the day Blood 03/01/2024 1:00 PM EDT 03/01/2024 1:00 PM EDT Rudi Hernandez MD POINT OF CARE TEST O ELKIN [facility] [place] [address] * Anaerobic Culture (03/01/2024 1:00 PM EDT) Anaerobic Culture No anaerobic organisms isolated [facility] Fluid 03/01/2024 1:00 PM EDT 03/01/2024 4:19 PM EDT Comment:Bile duct culture Narrative Resulting Agency Comment Spec In Lab Rudi Hernandez MD MICROBIOLOGY - GENER AL ORDERABLES Performing Organization Address City/[facility]/ZIP Co de Phone Number [facility] [place] [place] [address] * Body Fluid Culture, Aerobic (03/01/2024 1:00 PM EDT) Body Fluid Culture No growth [facility] Gram Stain Cytocentrifuge Gram Stain performed No Neutrophils seen. No microorganisms seen. [facility] Fluid 03/01/2024 1:00 PM EDT 03/01/2024 4:19 PM EDT Comment:Bile duct culture Narrative Resulting Agency Comment Spec In Lab Rudi Hernandez MD MICROBIOLOGY - GENER AL ORDERABLES Performing Organization Address City/[facility]/ZIP Co de Phone Number [facility] [place] [place] [address] * Specimen to Pathology (03/01/2024 12:50 PM EDT) AP Specimen 03/01/2024 12:5 0 PM EDT 03/01/2024 12:50 PM EDT Narrative [facility] - 03/01/2024 12:50 PM EDT Specimen requisition ordered. ??Separate Pathology report to follow Rudi Hernandez MD PATHOLOGY/CYTOLOGY O RDERABLES [facility] [place] [place] [address] * POCT Glucose (03/01/2024 12:01 PM EDT) Glucose, POC 153 65 - 199 mg/dL [facility] Comment: Supplemental ranges: <140 mg/dL before meals <180 mg/dL all other times of the day Blood 03/01/2024 12:0 1 PM EDT 03/01/2024 12:01 PM EDT Rudi Hernandez MD POINT OF CARE TEST O RDERAVANNESSA [facility] [place] [address] * Specimen to Pathology (03/01/2024 11:07 AM EDT) AP Specimen 03/01/2024 11:0 7 AM EDT 03/01/2024 11:07 AM EDT Narrative [facility] - 03/01/2024 11:07 AM EDT Specimen requisition ordered. ??Separate Pathology report to follow Rudi Hernandez MD PATHOLOGY/CYTOLOGY O RDLIAT Performing Organization Address City/[facility] Co de Phone Number [facility] [place] [place] [address] * (ABNORMAL) BLOOD GAS 2 ARTERIAL (03/01/2024 10:55 AM EDT) pH, Arterial 7.43 7.35 - 7.45 [facility] PCO2, Arterial 35 35 - 45 mmHg [facility] PO2, Arterial 182(H) 85 - 104 mmHg [facility] Bicarbonate, Arterial 22.9 20.0 - 26.0 mmol/L [facility] Base Excess, Arterial -1.4 -3.0 - 3.0 mmol/L [facility] Hgb Blood Gas 14.5 13.7 - 16.5 g/dL [facility] Oxyhemoglobin, Arterial 98.4(H) 94.0 - 97.0 % [facility] Carboxyhemoglob in, Arterial 0.5 % [facility] Comment: Nonsmokers: 0.5-1.5% COHB Smokers: Variable, but usually less than 10% Toxic: 20-30% COHB Lethal: Greater than 60% COHB Methemoglobin, Arterial 0.3 <=1.5 % [facility] Na Whole Blood 135 135 - 145 mmol/L [facility] K Whole Blood 4.1 3.5 - 5.0 mmol/L [facility] Comment: Please note: Patients with WBC >100,000 may have falsely elevated Potassium levels. Contact the Clinical Chemistry Laboratory if there are any questions. ICa Whole Blood 1.12(L) 1.15 - 1.33 mmol/L [facility] Comment: Note: ??Total bilirubin higher than 20 mg/dL may lead to falsely low ionized calcium. CL Whole Blood 102 98 - 107 mmol/L [facility] Gluc Whole Bld 198 65 - 199 mg/dL [facility] Comment:Diabetes: >=200 mg/d L plus symptoms. Lactate WB 2.0 0.5 - 2.2 mmol/L [facility] Blood 03/01/2024 10:5 5 AM EDT 03/01/2024 10:55 AM EDT Rudi Hernandez MD POINT OF CARE TEST O RDERABLES [facility] [place] [place] [address] * Surgical Pathology Report (03/01/2024 10:49 AM EDT) Final Diagnosis [id number] ? Location: [id number]; 0404; B The signing [...] MD Verified: ??03/10/2024 16:41 ??Pathologist Performed at: ??-[facility] Dept. of Pathology, [place] [address] Manager Paid: Lee Sutton MD, [facility], ??[place] Certificate: [id number] SYNOPTIC Specimen ? Procedure: ??Pancreaticoduodene ctomy (Whipple [...] Category: ??pT3 ? pN Category: ??pN1 ? [facility] 2021 Q1 Release ADDITIONAL STUDIES Whole slide [...] is inked red. . SPECIMEN PROCESSING Sections/Processing: [employer] sections in 41 cassettes as follows: ?B1: [...] 1.4 x 1.0 x 0.7 cm. Sections/Processing: [employer] sections to include the entire lymph node are submitted in 1 cassettes as follows: ?C1: ??Single quadrisected lymph node D - Labeled/Fixative: Common hepatic artery lymph node #2, fresh. Quantity/Size: Single, 1.2 x 1.2 x 0.7 cm. Tissue Description: Palumbo-pink lymph node with minimal attached adipose tissue Sections/Processing: Quadrisected and entirely submitted in 2 cassettes labeled D1-D2. ??jnr 03/10/2024 4:41 PM EDT [facility] LYMPH NODE SPECIMEN / Unknown 03/01/2024 10:49 AM EDT 03/01/2024 10:49 AM EDT PANCREATIC STRUCTURE / Unknown 03/01/2024 10:49 AM EDT 03/01/2024 10:49 AM EDT LYMPH NODE SPECIMEN / Unknown 03/01/2024 10:49 AM EDT 03/01/2024 10:49 AM EDT LYMPH NODE SPECIMEN / Unknown 03/01/2024 10:49 AM EDT 03/01/2024 10:49 AM EDT Rudi Hernandez MD PATHOLOGY/CYTOLOGY O RDERABLES Performing Organization Address City/[facility]/ZIP Co de Phone Number [facility] [place] [place] [address] * Specimen to Pathology (03/01/2024 10:49 AM EDT) AP Specimen 03/01/2024 10:4 9 AM EDT 03/01/2024 10:49 AM EDT Narrative [facility] - 03/01/2024 10:49 AM EDT Specimen requisition ordered. ??Separate Pathology report to follow Rudi Hernandez MD PATHOLOGY/CYTOLOGY O RDERABLES Performing Organization Address [facility] Co de Phone Number [facility] [place] [address] * POCT Glucose (03/01/2024 9:59 AM EDT) Glucose, POC 178 65 - 199 mg/dL [facility] Comment: Supplemental ranges: <140 mg/dL before meals <180 mg/dL all other times of the day Blood 03/01/2024 9:59 AM EDT 03/01/2024 9:59 AM EDT Rudi Hernandez MD POINT OF CARE TEST O RDERABLES Performing Organization Address [facility] Co de Phone Number [facility] [place] [place] [address] * Type and Screen Validity (03/01/2024 9:31 AM EDT) T&S only valid at [facility] Comment:This Type and Screen result is only valid at the [facility] Blood 03/01/2024 9:31 AM EDT 03/01/2024 9:31 AM EDT Narrative Resulting Agency Comment Spec In Lab Rudi Hernandez MD BLOOD BANK LAB ORDER DEDRA Performing Organization Address City/[facility]/ZIP Co de Phone Number [facility] [place] [place] [address] * ABORH Recheck Status (03/01/2024 9:31 AM EDT) ABORH Recheck Order Order Placed [facility] ABORH Type Recheck Completed [facility] Blood 03/01/2024 9:31 AM EDT 03/01/2024 9:31 AM EDT Narrative Resulting Agency Comment Spec In Lab Rudi Hernandez MD BLOOD BANK LAB ORDER DEDRA [facility] [place] [place] [address] * Type and screen ([facility]/CGP/FABIOLA) (03/01/2024 9:31 AM EDT) [facility] ABORH Type A POSITIVE [facility] Patient BB History Not Found [facility] Expires at [id number] on: 03/04/2024 [facility] Ab Screen Interp Negative [facility] Blood 03/01/2024 9:31 AM EDT 03/01/2024 9:31 AM EDT Narrative [facility] - 03/01/2024 9:31 AM EDT This Type and Screen result is only valid at the [facility] Resulting Agency Comment Spec In Lab Rudi Hernandez MD BLOOD BANK LAB ORDER DEDRA [facility] [place] [address] * (ABNORMAL) POCT Glucose (03/01/2024 9:14 AM EDT) [facility] Glucose, POC 211(H) 65 - 199 mg/dL [facility] Comment: Supplemental ranges: <140 mg/dL before meals <180 mg/dL all other times of the day Blood 03/01/2024 9:14 AM EDT 03/01/2024 9:14 AM EDT Rudi Hernandez MD POINT OF CARE TEST O RDERABLES [facility] [place] [place] [address] * (ABNORMAL) BLOOD GAS 2 ARTERIAL (03/01/2024 8:39 AM EDT) pH, Arterial 7.38 7.35 - 7.45 [facility] PCO2, Arterial 37 35 - 45 mmHg [facility] PO2, Arterial 223(H) 85 - 104 mmHg [facility] Bicarbonate, Arterial 21.8 20.0 - 26.0 mmol/L [facility] Base Excess, Arterial -3.3(L) -3.0 - 3.0 mmol/L [facility] Hgb Blood Gas 13.3(L) 13.7 - 16.5 g/dL [facility] Oxyhemoglobin, Arterial 98.4(H) 94.0 - 97.0 % [facility] Carboxyhemoglob in, Arterial 0.9 % [facility] Comment: Nonsmokers: 0.5-1.5% COHB Smokers: Variable, but usually less than 10% Toxic: 20-30% COHB Lethal: Greater than 60% COHB Methemoglobin, Arterial 0.3 <=1.5 % [facility] Na Whole Blood 131(L) 135 - 145 mmol/L [facility] K Whole Blood 3.7 3.5 - 5.0 mmol/L [facility] Comment: Please note: Patients with WBC >100,000 may have falsely elevated Potassium levels. Contact the Clinical Chemistry Laboratory if there are any questions. ICa Whole Blood 1.10(L) 1.15 - 1.33 mmol/L [facility] Comment: Note: ??Total bilirubin higher than 20 mg/dL may lead to falsely low ionized calcium. CL Whole Blood 101 98 - 107 mmol/L [facility] Gluc Whole Bld 250(H) 65 - 199 mg/dL [facility] Comment:Diabetes: >=200 mg/d L plus symptoms. Lactate WB 1.1 0.5 - 2.2 mmol/L [facility] Blood 03/01/2024 8:39 AM EDT 03/01/2024 8:39 AM EDT Rudi Hernandez MD POINT OF CARE TEST O RDERABLES Performing Organization Address [facility]/ZIP Co de Phone Number [facility] [place] [address] * XR Fluoro No Rad <1Hr - OR Use (03/01/2024 7:45 AM EDT) Narrative Dicom, Auditing User - 03/01/2024 7:45 AM EDT This exam is auto-finalizing. No interpretation was done. Shyla Bird MD IMG FLUORO ORDE RABLES * (ABNORMAL) Creatinine (03/01/2024 7:04 AM EDT) Creatinine 0.77(L) 0.80 - 1.50 mg/dL [facility] Est Glomerular Filtration Rate 110 >=60 mL/min/1. 73 m?? [facility] Comment: This patient's estimated GFR [...] [facility]/ZIP Co de Phone Number [facility] [place] [address] * (ABNORMAL) POCT Glucose (03/01/2024 7:03 AM EDT) Glucose, POC 207(H) 65 - 199 mg/dL [facility] Comment: Supplemental ranges: <140 mg/dL before meals <180 mg/dL all other times of the day Blood 03/01/2024 7:03 AM EDT 03/01/2024 7:03 AM EDT Rudi Hernandez MD POINT OF CARE TEST O RDERABLES [facility] [place] [address] documented in this encounter Visit Diagnoses Diagnosis [...] HOURS SCHEDULED, 4 doses, First dose on Fri03/01/24 at 1945, Last dose on Fri03/02/24 at [...] of Labetalol then call Surgical Oncology on [id number], Routine Given 03/08/2024 9:49 AM EDT 20 mg Given 03/08/2024 12:51 AM EDT 20 mg Given 03/07/2024 11:57 PM EDT 20 mg lactated Ringers 1,000 mL IV bolus Intravenous, ONCE, 1 dose, On Fri03/02/24 at 0630 03/02/2024 6:23 AM EDT lactated Ringers 1,000 mL IV bolus Intravenous, ONCE, 1 dose, On Fri03/02/24 at 1445 03/02/2024 2:52 PM EDT 500 mL/hr lactated [...] Until Fri03/03/24 at 1405, Recovery (Recovery-Hospital Unit) [facility] 03/03/2024 8:40 AM EDT 1,000 mLs 100 mL/hr 03/03/2024 4:54 AM EDT 1,000 mLs 100 mL/hr 03/02/2024 4:56 PM EDT 1,000 mLs 100 [...] Hours, EVERY 24 HOURS, First dose on 03/07/24 at 1730, Until Discontinued, Apply patch(es) for [...] GRETCHEN) 0000 (Given - Provider: Scotty Dela Cruz RN)0653 (Given - Provider: Scotty Dela Cruz RN)1217 (Given - Provider: Bernadette Ford RN)1737 (Given - Provider: Bernadette Ford RN)2349 (Given - Provider: Nahomi Toussaint, GRETCHEN) 0514 (Given - Provider: Nahomi Toussaint RN)1156 (Given - Provider: Mae Velazquez, GRETCHEN) amLODIPine [...] 0840 (Given - Provider: Dilma Dominique RN) citalopram (CeleXA) tablet 40 mg 40 mg, Oral, DAILY, First dose (after last modification) on Fri03/07/24 at 0900, Until Discontinued, Routine 0905 (Given - Provider: Bernadette Ford RN) 0832 (Given - Provider: Mae Velazquez, GRETCHEN) enoxaparin (Lovenox) (40 mg/0.4 mL) subcutaneous injection 40 mg 40 mg, Subcutaneous, NIGHTLY, First dose on Fri03/01/24 at 2100, Until Discontinued, Routine 2200 (Given - Provider: Scotty Dela Cruz RN) 2037 (Given - Provider: Nahomi Toussaint, GRETCHEN) furosemide (Lasix) tablet 40 mg 40 mg, Oral, 2 TIMES DAILY, First dose on Fri03/04/24 at 0915, Until Discontinued, Routine 0841 (Given - Provider: Dilma Dominique RN)1712 (Given - Provider: Dilma Dominique, GRETCHEN) 0905 (Given - Provider: Bernadette Ford RN)1643 (Given - Provider: Bernadette Ford RN) 0832 (Given - Provider: Mae Velazquez, RN) insulin glargine-ygfn (Semglee) (100 unit/mL) subcutaneous injection vial 10 Units (CANCELED) 10 Units, Subcutaneous, NIGHTLY, First dose (after last modification) on Aline 03/04/24 at 2100, Until Discontinued, Routine 2199 (Given - Provider: Scotty Dela Cruz RN) 2038 (Given - Provider: Nahomi Toussaint RN) insulin glargine-ygfn (Semglee) (100 unit/mL) subcutaneous injection vial 12 Units 12 Units, Subcutaneous, NIGHTLY, First dose (after last modification) on 03/08/24 at 2100, Until Discontinued, Routine insulin lispro [...] Toussaint RN) 0007 (Given - Provider: Nahomi Toussaint, GRETCHEN)0400 (Given - Provider: Nahomi Toussaint RN)0836 (Given [...] Dela Cruz RN - Reason: Patient/family refused) 002 (Patch Applied - Provider: Scotty Dela Cruz RN)1218 (Patch Removed - Provider: Bernadette Ford, GRETCHEN)203 (Patch Applied - Provider: Nahomi Toussaint, GRETCHEN) 0838 (Patch Removed - Provider: Mae Velazquez RN) lidocaine (Lidoderm) 5% patch 1 patch 1 patch, Transdermal, Administer over 12 Hours, EVERY 24 HOURS, First dose on Fri03/07/24 at 1730, Until Discontinued, Apply patch(es) for 12 hours, and then remove for 12 hours. On his back at the epidural removal site, Routine 1642 (Patch Applied - Provider: Bernadette Ford, GRETCHEN) 0442 (Patch Removed - Provider: Nahomi Toussaint, GRETCHEN) pantoprazole EC (Protonix) tablet 40 mg 40 mg, Oral, 2 TIMES DAILY, First dose on Fri03/05/24 at 0900, Until Discontinued, DO NOT CRUSH OR OPEN, Routine 0841 (Given - Provider: Dilma Dominique RN)2200 (Given - Provider: Scotty Dela Cruz RN) 09 (Given - Provider: Bernadette Ford, GRETCHEN)203 (Given - Provider: Nahomi Toussaint, GRETCHEN) 0832 (Given - Provider: Mae Velazquez RN) polyethylene glycoL (Miralax) packet 17 g 17 g, Oral, DAILY, First dose on Fri03/05/24 at 0900, Until Discontinued, Routine 0900 (Not Given - Provider: Dilma Dominique RN - Reason: Contraindicated) 0906 (Given - Provider: Bernadette Ford RN) 0900 (Not Given - Provider: Mae Velazquez RN - Reason: Patient/family refused) potassium chloride 10 mEq in sterile water 100 mL infusion (COMPLETED) 10 mEq, Intravenous, EVERY 2 HOURS, 4 doses, First dose on 03/06/24 at 0800, Last dose on Fri03/06/24 at [...] Dominique RN)1404 (New Bag - Provider: Dilma Dominique RN)1504 (Stopped - Provider: Dilma Dominique RN) [...] Bernadette Ford RN)2037 (Given - Provider: Nahomi Toussaint, RN) 0832 (Given - Provider: Mae Velazquez, GRETCHEN) sodium chloride 0.9 % (flush) (BD PosiFlush Normal Saline 0.9) flush 5 mL 5 mL, Intravenous, 2 TIMES DAILY, First dose on Fri03/01/24 at 2100, Until Discontinued, Recovery (Recovery-Hospital Unit), Routine 0841 (Given - Provider: Dilma Dominique RN)2100 (Not Given - Provider: Scotty Dela Cruz RN - Reason: Patient/family refused) 09 (Given - Provider: Bernadette Ford, GRETCHEN)2043 (Given - Provider: Nahomi Toussaint, GRETCHEN) 0900 (Given - Provider: Mae Velazquez, GRETCHEN) sodium chloride 0.9% 500 mL IV bolus (COMPLETED) at 500 mL/hr, Intravenous, ONCE, 1 dose, On Fri03/08/24 at 0815 0812 (New Bag - Provider: Mae Velazquez, GRETCHEN)0912 (Stopped - Provider: Mae Velazquez RN) Continuous [...] on a programmed frequency, Recovery (Recovery-Hospital Unit) 6259 (New Bag - Provider: Scotty Dela Cruz [...] 0857 (Rate/Dose Change - Provider: Bernadette Ford, RN)1026 (Stopped - Provider: Bernadette Ford RN) [...] Intravenous, EVERY 2 HOURS PRN, Starting on 03/07/24 at 1602, Until Fri03/08/24 at 1701, High [...] Intravenous, EVERY 30 MIN PRN, Starting on 03/07/24 at 0800, Until Fri03/08/24 at 1701, High Blood Pressure, for SBP > 160, HR>60, For HTN, SBP>160 mmHG, hold if HR is below 60 If SBP does not drop <160 mmHG after 30 min of administering the first dose, then give the second dose If BP not controlled after two doses of Labetalol then call Surgical Oncology on 501, Routine 1036 (Given - Provider: Bernadette Ford RN)1517 (Given - Provider: Bernadette Ford RN)1850 (Given - Provider: Bernadette Ford RN)2357 (Given - Provider: Nahomi Toussaint RN) 0051 (Given - Provider: Nahomi Toussaint RN)0949 (Given - Provider: Mae Velazquez RN) lidocaine (Xylocaine) 1% (10 mg/mL) injection 3 mg 3 mg (0.3 mL), Subcutaneous, ONCE PRN, 1 dose, Starting on 03/01/24 at 1924, Until Fri03/08/24 at 1701, for discomfort with PIV insertion, Recovery (Recovery-Hospital Unit), Routine LORazepam (Ativan) tablet 0.5 mg 0.5 mg, Oral, NIGHTLY PRN, Starting on 03/05/24 at 0720, Until 03/08/24 at 1701, Anxiety, Insomnia, Routine 2350 (Given [...] vomiting, Routine 0430 (Given - Provider: Katelynn L Unger, RN) 0015 (Given - Provider: Scotty Dela Cruz [...] Routine documented in this encounter Care Teams Sales Service Manager Relationship Specialty Start Date End Date Olga Hoffman APRN [address] [place] [address] PCP - General Family Medicine 10/30/22 documented as of this encounter
--- OUTSIDE RECORDS SUMMARY | 2024-05-27 18:02 | XMS_ITS | Encounter Summary ---
Author Organization Formerly [facility] [place] [address] Care Team Providers Care Processing Clerk Name Role Phone Olga Hoffman APRN Primary Care Provider [phone] [phone] Encounter Details Date Type Department Care Team (Latest Contact Info) Description 01/06/2023 8:00 AM EDT Laboratory Appointment Lab [address] [place] [id number] Type 2 diabetes mellitus with diabetic nephropathy, [...] AM EDT Office Visit Hematology/Oncology at [address] [phone] Rodriguez Fowler MD [facility] [place] [address] Sherry Cedillo APRN [address] [place] [address] DR [place] [address] 05/28/2024 8:30 AM EDT Infusion Hematology Oncology at [address] [phone] 05/28/2024 9:30 AM EDT Clinical Support Hematology/Oncology at [address] [phone] Leah Rose, RD [facility] [place] [address] documented as of this encounter Procedures Procedure [...] EDT) Iron 82 45 - 160 mcg/dL [facility] TIBC 340 250 - 450 mcg/dL [facility] Iron Saturation 24 20 - 50 % [facility] Blood Venous Draw / Unknown 01/06/2023 8:32 AM EDT 01/06/2023 8:43 AM EDT Narrative Resulting Agency Comment Spec In Lab Faye Maxwell MD CHEMISTRY ORDERABLES Performing Organization Address City/State/[facility] [place] Co de Phone Number [facility] [place] [address] * (ABNORMAL) Differential, Automated (01/06/2023 8:32 AM EDT) Neutrophil % 71.6 % [facility] Neutrophil Absolute 6.75(H) 1.70 - 6.10 x10(3)/mc L [facility] Lymph % 21.1 % [facility] Lymphocytes Abs 2.0 0.9 - 3.2 x10(3)/mc L [facility] Monocyte % 4.6 % [facility] Monocyte Abs 0.4 0.3 - 0.9 x10(3)/mc L [facility] Eos % 1.7 % [facility] Eosinophils Abs 0.2 0.0 - 0.4 x10(3)/mc L [facility] Basophil % 0.8 % [facility] Baso Absolute 0.1 0.0 - 0.1 x10(3)/mc L [facility] Immature Gran % 0.20 % [facility] Comment: Immature granulocytes(IG's)percentage and absolute count will include metamyelocytes, myelocytes, and promyelocytes. Blood smears from CBCs yielding IG's will be scanned manually for concordance. If this scan disagrees with the automated IG or if promyelocytes are noted, a manual differential will be performed. Immature Gran Absolute 0.02 0.00 - 0.04 x10(3)/[facility] Blood 01/06/2023 8:32 AM EDT 01/06/2023 8:39 AM EDT Narrative Resulting Agency Comment Spec In Lab Faye Maxwell MD HEMATOLOGY ORDERABLE S [facility] [place] [address] * (ABNORMAL) Hemogram (01/06/2023 8:32 AM EDT) White Blood Cell 9.4 4.0 - 9.5 x10(3)/[facility] Red Blood Cell 6.52(H) 4.58 - 5.54 x10(6)/[facility] Hemoglobin 16.2 13.7 - 16.5 g/dL [facility] Hematocrit 49.9(H) 40.5 - 48.5 % [facility] Mean Cell Volume 76.5(L) 82.9 - 93.1 fL [facility] Mean Cell Hemoglobin 24.8(L) 27.5 - 32.1 pg [facility] Mean Cell Hemoglobin Concentration 32.5 32.0 - 35.7 g/dL [facility] Platelet 228 145 - 357 x10(3)/[facility] RDW Standard Deviation 40.7 36.0 - 45.0 fL [facility] RDW coefficient of variation 15.5(H) 11.4 - 13.8 % [facility] Mean Platelet Volume 10.3 7.6 - 12.9 fL [facility] NRBC% auto 0.0 % [facility] NRBC Absolute 0.000 0.000 - 0.000 x10(3)/[facility] Blood 01/06/2023 8:32 AM EDT 01/06/2023 8:39 AM EDT Narrative Resulting Agency Comment Spec In Lab Faye Maxwell MD HEMATOLOGY ORDERABLE S [facility] [place] [address] * (ABNORMAL) PTH (01/06/2023 8:32 AM EDT) Parathyroid Hormone 121(H) 15 - 65 pg/mL [facility] Blood 01/06/2023 8:32 AM EDT 01/06/2023 8:39 AM EDT Narrative Resulting Agency Comment Spec In Lab Faye Maxwell MD CHEMISTRY ORDERABLES Performing Organization Address [facility] Co de Phone Number [facility] [place] [address] * Uric acid (01/06/2023 8:32 AM EDT) Uric Acid 6.7 3.5 - 8.5 mg/dL [facility] Blood 01/06/2023 8:32 AM EDT 01/06/2023 8:39 AM EDT Narrative Resulting Agency Comment Spec In Lab Faye Maxwell MD CHEMISTRY ORDERABLES Performing Organization Address City/[facility] Co de Phone Number [facility] [place] [address] * Phosphorus (01/06/2023 8:32 AM EDT) Phosphorus 2.8 2.5 - 4.5 mg/dL [facility] Blood 01/06/2023 8:32 AM EDT 01/06/2023 8:39 AM EDT Narrative Resulting Agency Comment Spec In Lab Faye Maxwell MD CHEMISTRY ORDERABLES Performing Organization Address City/[facility] Co de Phone Number [facility] [place] [address] * Comprehensive metabolic panel (non-fasting) (01/06/2023 8:32 AM EDT) Glucose 142 65 - 199 mg/dL [facility] Comment:Diabetes: >=200 mg/d L plus symptoms Blood Urea Nitrogen 10 10 - 20 mg/dL [facility] Creatinine 1.03 0.80 - 1.50 mg/dL [facility] Sodium 140 135 - 145 mmol/L [facility] Potassium 4.4 3.5 - 5.0 mmol/L [facility] Comment: Please note: ??Patients with WBC >100,000 may have falsely elevated Potassium levels. ??For accurate Potassium quantification in these patients send serum separator tube (gold top) for subsequent determinations. ??Contact the Clinical Chemistry Laboratory if there are any questions. Chloride 100 98 - 107 mmol/L [facility] Carbon Dioxide 30 22 - 31 mmol/L [facility] Anion Gap 10 5 - 15 mmol/L [facility] Calcium 9.3 8.5 - 10.5 mg/dL [facility] Protein, Total 7.9 6.1 - 8.0 g/dL [facility] Albumin 4.5 3.2 - 5.2 g/dL [facility] Aspartate Aminotransferase 17 0 - 39 unit/L [facility] Alanine Aminotransferase 19 0 - 55 unit/L [facility] Alkaline Phosphatase 90 40 - 130 unit/L [facility] Bilirubin, Total 0.5 0.2 - 1.3 mg/dL [facility] Est Glomerular Filtration Rate 90 >=60 mL/min/1. 73 m?? 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
--- OUTSIDE RECORDS SUMMARY | 2024-05-27 18:02 | XMS_ITS | Encounter Summary ---
Author Organization [facility] Address One [facility] [place] [address] Care Team Providers Care Technology Intern Name Role Phone Olga Hoffman APRN Primary Care Provider [phone] Encounter Details Date Type Department Care Team [...] AM EDT Office Visit Hematology/Oncology at [address] [phone] Rodriguez Fowler MD [facility] [place] [address] Sherry Cedillo APRN [address] [place] [address] DR HEMATOLOGY AND ONCOLOGY [place], [place] [id number] 05/28/2024 8:30 AM EDT Infusion Hematology Oncology at [address] [phone] 05/28/2024 9:30 AM EDT Clinical Support Hematology/Oncology at [address] [phone] [facility] DR [place] [address] documented as of this encounter Visit Diagnoses Not on filedocumented in this encounter Care Teams Technology Intern Relationship Specialty Start Date End Date Olga Hoffman APRN [address] [place] [address] PCP - General Family Medicine 10/30/22 documented as of this encounter
--- OUTSIDE RECORDS SUMMARY | 2024-05-27 18:02 | XMS_ITS | Encounter Summary ---
Author Organization [facility] [place] [id number] Care Team Providers Care Mobile Health Vehicle Operator Name Role Phone Olga Hoffman APRN Primary Care Provider [phone] Reason for Visit * Consultation (Routine) - Closed Specialty Diagnoses / Procedures Referred By Janak t Referred To Contact Gastroenterology Diagnoses CHAN (nonalcoholic steatohepatitis) Eugenia Barrera APRN [facility] [place] [address] [facility] [place] [address] Referral ID Status Reason Start Date Expiration Date V isits Requested Visits Authorized [id number] Closed Continuity of Care 01/24/2023 01/24/2024 1 1 Encounter Details Date Type Department Care Team (Late st Contact Info) Description 02/25/2023 9:00 AM EDT TH Visit (TeleHealth) [place] [address] [facility] [place] [address] CHAN (nonalcoholic steatohepatitis) Social History Tobacco Use [...] in a retirement (including now)? No 01/23/2023 Sex and Gender Information Value Date Recorded Sex Assigned at Not on file Gender Identity Not on file Sexual Orientation Not on file documented as of this encounter Patient Instructions * Patient Instructions* Sheila Amaya, RD - 02/25/2023 9:00 AM EDT It was great to chat with you, Charles. Below are recommendations discussed today. Please reach out with a Speed Dating by [employer] message if you have any questions or [...] service like Hello Fresh, Blue Apron, Daily [place]. Can pick 1 or 2 days or [...] meals -Try a meal prep service like [employer], [employer], Daily [place]. Can pick 1 or 2 days or [...] AM EDT Office Visit Hematology/Oncology at [address] [phone] Rodriguez Fowler MD [facility] [place] [address] Sherry Cedillo APRN [address] [place] [address] HEMATOLOGY AND ONCOLOGY [place], [place] [id number] 05/28/2024 8:30 AM EDT Infusion Hematology Oncology at [address] [phone] 05/28/2024 9:30 AM EDT Clinical Support Hematology/Oncology at [address] [phone] Leah Rose, RD [facility] DR [place]ATOLOGY [place] [address] Scheduled Referrals Name Type Priority Associated Diagnoses Orde r Schedule Referral to Nutrition Services Outpatient Referral Routine CHAN (nonalcoholic steatohepatitis) Ordered: 01/24/2023 documented as of this encounter Visit Diagnoses Diagnosis CHAN (nonalcoholic steatohepatitis) Other chronic nonalcoholic liver disease Duodenal adenocarcinoma Malignant neoplasm of duodenum documented in this encounter Care Teams Mobile Health Vehicle Operator Relationship Specialty Start Date End Date Olga Hoffman APRN [address] [place] [address] PCP - General Family Medicine 10/30/22 documented as of this encounter
--- OUTSIDE RECORDS SUMMARY | 2024-05-27 18:02 | XMS_ITS | Encounter Summary ---
Author Organization [facility] Address One [facility] [place] [address] Care Team Providers Care Turn Laster Name Role Phone Olga Hoffman APRN Primary Care Provider [phone] -[phone] Encounter Details Date Type Department Care Team [...] AM EDT Office Visit Hematology/Oncology at [address] [phone] Rodriguez Fowler MD [facility] [place] [address] Sherry Cedillo APRN [address] [place] [address] DR HEMATOLOGY AND ONCOLOGY [place], [place] [id number] 05/28/2024 8:30 AM EDT Infusion Hematology Oncology at [address] [phone] 05/28/2024 9:30 AM EDT Clinical Support Hematology/Oncology at [address] [phone] [facility] DR [place] [address] documented as of this encounter Visit Diagnoses Not on filedocumented in this encounter Care Teams Turn Laster Relationship Specialty Start Date End Date Olga Hoffman APRN [address] [place] [address] PCP - General Family Medicine 10/30/22 documented as of this encounter
--- OUTSIDE RECORDS SUMMARY | 2024-05-27 18:02 | XMS_ITS | Encounter Summary ---
Author Organization [facility] [place] [address] Care Team Providers Care Integration Solution Architect Name Role Phone Olga Hoffman APRN Primary Care Provider [phone] [phone] Encounter Details Date Type Department Care Team (Late st Contact Info) Description 03/14/2023 Telephone [place] [address] Gabriela Hyde Social History Tobacco [...] in a prison (including now)? No 01/23/2023 Sex and Gender [...] Office Visit Hematology/Oncology at [address] [phone] Rodriguez Fowler MD [facility] [place] [address] Sherry Cedillo APRN [address] [place] [address] DR HEMATOLOGY AND ONCOLOGY [place], [place] [id number] 05/28/2024 8:30 AM EDT Infusion Hematology Oncology at [address] [phone] 05/28/2024 9:30 AM EDT Clinical Support Hematology/Oncology at [address] [phone] [facility] [place] [address] documented as of this encounter Visit Diagnoses Not on filedocumented in this encounter Care Teams Integration Solution Architect Relationship Specialty Start Date End Date Olga Hoffman, CREDIT CARD ASSOCIATE [address] [place] [address] PCP - General Family Medicine 10/30/22 documented as of this encounter
--- OUTSIDE RECORDS SUMMARY | 2024-05-27 18:02 | XMS_ITS | Encounter Summary ---
[place] [address] Care Team Providers Care Biosecurity Officer Name Role Phone Olga Hoffman APRN Primary Care Provider [phone] [phone] Reason for Visit * Diagnostic Test (Routine) - Closed Specialty Diagnoses / Procedures Referred By Contac t Referred To Contact Radiology Diagnoses Duodenal adenocarcinoma Procedures NM PET CT Skull Base to Mid-thigh Jaki Phillips [address] [place] [address] [place] [address] Referral ID Status Reason Start Date Expiration Date V isits Requested Visits Authorized [id number] Closed Specialty Service Requested 01/13/2024 07/14/2025 1 1 Encounter Details Date Type Department Care Team (Latest Contact Info) Description 01/27/2024 12:06 PM EDT - 01/27/2024 11:59 PM EDT Hospital Encounter [place] [address] Jaki Phillips [address] [place], [place] [id number] Discharge Disposition: Home Social History Tobacco Use [...] 03/24/2024 metFORMIN (GLUCOPHAGE) 1,000 mg TabletIndications:Prote inuria,Obesity,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 02/27/2024 documented as of this encounter Plan of Treatment Upcoming Encounters Date Type Department Care Team (Late st Contact Info) Description 05/28/2024 8:00 AM EDT Office Visit Hematology/Oncology at [address] [phone] Rodriguez Fowler MD [facility] [place] [address] Sherry Cedillo APRN [address] [place] [address] DR HEMATOLOGY AND ONCOLOGY [place], [place] [id number] 05/28/2024 8:30 AM EDT Infusion Hematology Oncology at [address] [phone] 05/28/2024 9:30 AM EDT Clinical Support Hematology/Oncology at [address] [phone] [facility] HEMATOLOGY [place] [address] documented as of this encounter Procedures Procedure Name Priority Date/Time Associated Diagnosis Comments NM PET CT SKULL BASE TO MID-THIGH ([facility]) Routine 01/27/2024 1:46 PM EDT Duodenal adenocarcinoma POCT GLUCOSE Routine 01/27/2024 12:16 PM EDT documented in this encounter Results * POCT Glucose (01/27/2024 12:16 PM EDT) Glucose, POC 112 65 - 199 mg/dL [facility] Comment: Supplemental ranges: <140 mg/dL before meals <180 mg/dL all other times of the day Blood 01/27/2024 12:1 6 PM EDT 01/27/2024 12:16 PM EDT Jaki Phillips DO POINT OF CARE TEST O RDERABLES [facility] [place] [address] documented in this encounter Visit Diagnoses Not on filedocumented in this encounter Care Teams Biosecurity Officer Relationship Specialty Start Date End Date Olga Hoffman APRN [address] [place] [address] PCP - General Family Medicine 10/30/22 documented as of this encounter
--- OUTSIDE RECORDS SUMMARY | 2024-05-27 18:02 | XMS_ITS | Encounter Summary ---
Author Organization [facility] Address One [facility] [address] Care Team Providers Care Quality Assurance Qa Lab Analyst Name Role Phone Olga Hoffman APRN Primary Care Provider [phone] Encounter Details Date Type Department Care Team (Late st Contact Info) Description 01/26/2024 12:05 AM EDT Ancillary Procedure [place] [address] Olga Hoffman APRN [address] [place] [address] Social History Tobacco Use Types [...] a senior care (including now)? No 01/23/2023 Sex and Gender Information Value Date Recorded Sex Assigned at Not on file Gender Identity Not on file Sexual Orientation Not on file documented as of this encounter Plan of Treatment Upcoming Encounters Date Type Department Care Team (Late st Contact Info) Description 05/28/2024 8:00 AM EDT Office Visit Hematology/Oncology at [address] [phone] Rodriguez Fowler MD [facility] [place] [address] Sherry Cedillo APRN [address] [place] [address] DR HEMATOLOGY AND ONCOLOGY [place], [place] [address] 05/28/2024 8:30 AM EDT Infusion Hematology Oncology at [address] [phone] 05/28/2024 9:30 AM EDT Clinical Support Hematology/Oncology at [address] [phone] [facility] [place] [address] documented as of this encounter Procedures Procedure Name Priority Date/Time Associated Diagnosis Comments FILM LIBRARY STORAGE ONLY MR PELVIS Routine 01/26/2024 12:05 AM EDT documented in this encounter Results * Film Library- Storage Only MR Pelvis (01/26/2024 12:05 AM EDT) Narrative WILBERT JEAN BAPTISTE - 01/27/2024 10:32 AM EDT This exam is auto-finalizing. It's purpose is for storage only. Olga Hoffman APRN IMG FILM LIBRARY ORDERABLES Performing Organization Address City/State/[facility] Co de Phone Number [place], [place] documented in this encounter Visit Diagnoses Not on filedocumented in this encounter Care Teams Quality Assurance Qa Lab Analyst Relationship Specialty Start Date End Date Olga Hoffman APRN [address] [place] [address] PCP - General Family Medicine 10/30/22 documented as of this encounter
--- OUTSIDE RECORDS SUMMARY | 2024-05-27 18:02 | XMS_ITS | Encounter Summary ---
Author Organization Formerly [facility] [place] [address] Care Team Providers Care Sales Representative Church Furniture Name Role Phone Olga Hoffman APRN Primary Care Provider [phone] [phone] Encounter Details Date Type Department Care Team (Latest Contact Info) Description 01/06/2023 9:00 AM EDT Office Visit [place] [address] Faye Maxwell MD [facility] [place] [address] Type 2 diabetes mellitus with diabetic nephropathy, [...] Renal and Hypertension clinic Charles Nick 1975 [id number] Chief Complaint: This is a followup visit to the Renal and Hypertension clinic for this 41 y.o. year old man for follow up of membranous glomerulopathy in remission Mr Nick recently passed a first kidney stone. Retrograde pyelogram at [facility] showed no residual stone. CT showed normal [...] without imunotherapy. Repeat biopsy in 2007 at [facility]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. ?? Obesity. ?? Hypertension, well controlled ?? DMII insulin-dependent. Variable control - states improved recently.. No evidence diabetic nephropathy. Neuropathy feet and hands without ulceration, Biltaeral cataracts, no retinopathy. identified complications ?? Obstructive sleep apnea: Uses CPAP with improvement tin daytime alertness and mood ?? Gepatic steatosis ?? 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 3 children. Father . Mother Habits: Non [...] very pleasant and interestingpatient CC: Olga Hoffman, PROCUREMENT PROFESSIONAL LOGISTICS @[email or web address]@ documented in this encounter Plan of Treatment Upcoming Encounters Date Type Department Care Team (Late st Contact Info) Description 05/28/2024 8:00 AM EDT Office Visit Hematology/Oncology at [address] [phone] Rodriguez Fowler MD [facility] [place] [address] Sherry Cedillo APRN [address] [place] [address] [place] [address] 05/28/2024 8:30 AM EDT Infusion Hematology Oncology at [address] [phone] 05/28/2024 9:30 AM EDT Clinical Support Hematology/Oncology at [address] [phone] [facility] DR HEMATOLOGY [place] [address] documented as of this encounter Procedures Procedure [...] EDT) Glucose 106 65 - 199 mg/dL [facility] Comment:Diabetes: >=200 mg/d L plus symptoms Blood Urea Nitrogen 7(L) 10 - 20 mg/dL [facility] Creatinine 0.92 0.80 - 1.50 mg/dL [facility] Sodium 140 135 - 145 mmol/L [facility] Potassium 4.5 3.5 - 5.0 mmol/L [facility] Comment: Please note: ??Patients with WBC >100,000 may have falsely elevated Potassium levels. ??For accurate Potassium quantification in these patients send serum separator tube (gold top) for subsequent determinations. ??Contact the Clinical Chemistry Laboratory if there are any questions. Chloride 103 98 - 107 mmol/L [facility] Carbon Dioxide 28 22 - 31 mmol/L [facility] Anion Gap 9 5 - 15 mmol/L [facility] Calcium 9.2 8.5 - 10.5 mg/dL [facility] Protein, Total 7.2 6.1 - 8.0 g/dL [facility] Albumin 4.1 3.2 - 5.2 g/dL [facility] Aspartate Aminotransferase 18 0 - 39 unit/L [facility] Alanine Aminotransferase 21 0 - 55 unit/L [facility] Alkaline Phosphatase 81 40 - 130 unit/L [facility] Bilirubin, Total 0.4 0.2 - 1.3 mg/dL [facility] Est Glomerular Filtration Rate 103 >=60 mL/min/1. 73 m?? [facility] Comment: This patient's estimated GFR was [...] In Lab Faye Maxwell MD CHEMISTRY ORDERABLES [facility] [place] [address] * Phosphorus (01/24/2023 10:42 AM EDT) Phosphorus 3.1 2.5 - 4.5 mg/dL [facility] Blood 01/24/2023 10:4 2 AM EDT 01/24/2023 10:51 AM EDT Narrative Resulting Agency Comment Spec In Lab Faye Maxwell MD CHEMISTRY ORDERABLES Performing Organization Address City/[facility]/ZIP Co de Phone Number [facility] [place] [address] * Uric acid (01/24/2023 10:42 AM EDT) Uric Acid 5.7 3.5 - 8.5 mg/dL [facility] Blood 01/24/2023 10:4 2 AM EDT 01/24/2023 10:51 AM EDT Narrative Resulting Agency Comment Spec In Lab Faye Maxwell MD CHEMISTRY ORDERABLES Performing Organization Address [facility] Co de Phone Number [facility] [place] [address] * PTH (01/24/2023 10:42 AM EDT) Parathyroid Hormone 60 15 - 65 pg/mL [facility] Blood 01/24/2023 10:4 2 AM EDT 01/24/2023 10:51 AM EDT Narrative Resulting Agency Comment Spec In Lab Faye Maxwell MD CHEMISTRY ORDERABLES Performing Organization Address [facility] Co de Phone Number [facility] [place] [address] * Protein/Creatinine Ratio, urine (01/06/2023 9:00 AM EDT) Creatinine, Urine 48 mg/dL [facility] Protein, Urine 7 0 - 12 mg/dL [facility] Protein / Creatinine Ratio, Urine 0.1 ratio [facility] Urine 01/06/2023 9:00 AM EDT 01/06/2023 10:45 AM EDT Narrative Resulting Agency Comment Spec In Lab Faye Maxwell MD URINE ORDERABLES [facility] [place] [address] * Comprehensive metabolic panel (non-fasting) (01/06/2023 8:32 AM EDT) Glucose 142 65 - 199 mg/dL [facility] Comment:Diabetes: >=200 mg/d L plus symptoms Blood Urea Nitrogen 10 10 - 20 mg/dL [facility] Creatinine 1.03 0.80 - 1.50 mg/dL [facility] Sodium 140 135 - 145 mmol/L [facility] Potassium 4.4 3.5 - 5.0 mmol/L [facility] Comment: Please note: ??Patients with WBC >100,000 may have falsely elevated Potassium levels. ??For accurate Potassium quantification in these patients send serum separator tube (gold top) for subsequent determinations. ??Contact the Clinical Chemistry Laboratory if there are any questions. Chloride 100 98 - 107 mmol/L [facility] Carbon Dioxide 30 22 - 31 mmol/L [facility] Anion Gap 10 5 - 15 mmol/L [facility] Calcium 9.3 8.5 - 10.5 mg/dL [facility] Protein, Total 7.9 6.1 - 8.0 g/dL [facility] Albumin 4.5 3.2 - 5.2 g/dL [facility] Aspartate Aminotransferase 17 0 - 39 unit/L [facility] Alanine Aminotransferase 19 0 - 55 unit/L [facility] Alkaline Phosphatase 90 40 - 130 unit/L [facility] Bilirubin, Total 0.5 0.2 - 1.3 mg/dL [facility] Est Glomerular Filtration Rate 90 >=60 mL/min/1. 73 m?? [facility] Comment: This patient's estimated GFR was [...] In Lab Faye Maxwell MD CHEMISTRY ORDERABLES [facility] [place] [address] * Phosphorus (01/06/2023 8:32 AM EDT) Phosphorus 2.8 2.5 - 4.5 mg/dL [facility] Blood 01/06/2023 8:32 AM EDT 01/06/2023 8:39 AM EDT Narrative Resulting Agency Comment Spec In Lab Faye Maxwell MD CHEMISTRY ORDERABLES Performing Organization Address City/[facility]/ZIP Co de Phone Number [facility] [place] [address] * Uric acid (01/06/2023 8:32 AM EDT) Uric Acid 6.7 3.5 - 8.5 mg/dL [facility] Blood 01/06/2023 8:32 AM EDT 01/06/2023 8:39 AM EDT Narrative Resulting Agency Comment Spec In Lab Faye Maxwell MD CHEMISTRY ORDERABLES Performing Organization Address City/[facility]/ZIP Co de Phone Number [facility] [place] [address] * (ABNORMAL) PTH (01/06/2023 8:32 AM EDT) Parathyroid Hormone 121(H) 15 - 65 pg/mL [facility] Blood 01/06/2023 8:32 AM EDT 01/06/2023 8:39 AM EDT Narrative Resulting Agency Comment Spec In Lab Faye Maxwell MD CHEMISTRY ORDERABLES Performing Organization Address City/[facility]/ZIP Co de Phone Number [facility] [place] [address] documented in this encounter Visit Diagnoses Diagnosis Type 2 diabetes mellitus with diabetic nephropathy, 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
--- OUTSIDE RECORDS SUMMARY | 2024-05-27 18:02 | XMS_ITS | Encounter Summary ---
[place] [address] Care Team Providers Care Medical Practice Assistant Name Role Phone Olga Hoffman APRN Primary Care Provider [phone] [phone] Reason for Referral * Consultation (Urgent) - Authorized Specialty Diagnoses / Procedures Referred By Janak holland Referred To Contact General Surgery Diagnoses Adenocarcinoma of duodenum Jaki Phillips DO [address] [place] [address] [address] [place] [address] [facility] [address] [place] [phone] Referral ID Status Reason Start Date Expiration Date Visits Requested Visits Authorized [id number] Authorized Consult, Test & Treat PCP Updated and/or Approved 01/09/2024 01/08/2025 6 6 Encounter Details Date Type Department Care Team (Latest Contact Info) Description 01/14/2024 Transcribe Orders eDH Incoming Referrals [phone] Jaki Phillips DO [address] [place] [address] [address] [place] [address] Adenocarcinoma of duodenum Social History [...] in a correction (including now)? No 01/23/2023 Sex and Gender Information Value Date Recorded Sex Assigned at Not on file Gender Identity Not on file Sexual Orientation Not on file documented as of this encounter Plan of Treatment Upcoming Encounters Date Type Department Care Team (Late st Contact Info) Description 05/28/2024 8:00 AM EDT Office Visit Hematology/Oncology at [address] [phone] Rodriguez Fowler MD [facility] [place] [address] Sherry Cedillo APRN [address] [place] [address] DR HEMATOLOGY AND ONCOLOGY [place], [place] [id number] 05/28/2024 8:30 AM EDT Infusion Hematology Oncology at [address] [phone] 05/28/2024 9:30 AM EDT Clinical Support Hematology/Oncology at [address] [phone] Leah Rose, RD [facility] DR [place] [address] Scheduled Referrals Name Type Priority Associated Diagnoses Orde r Schedule Referral to General Surgery Outpatient Referral Urgent Adenocarcinoma of duodenum Ordered: 01/14/2024 documented as of this encounter Visit Diagnoses Diagnosis 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
--- OUTSIDE RECORDS SUMMARY | 2024-05-27 18:02 | XMS_ITS | Encounter Summary ---
Author Organization [facility] Address [facility] [place] [address] Care Team Providers Care Unemployment Insurance Hearing Officer Name Role Phone Olga Hoffman APRN Primary Care Provider [phone] Encounter Details Date Type Department Care Team (Late st Contact Info) Description 02/07/2023 1:00 PM EDT TH Visit (TeleHealth) [place] [address] Veena Cunningham MD [facility] [place] [address] Erythrocytosis; Microcytosis Social History Tobacco Use Types [...] the Last Year: No ?? Lives in [place] ([place]hr [place]ts from [facility] ?? 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 Smoking: No No family history [...] this patient's situation further. Veena Mckeon MD [facility] CC: YOCASTA Briones Kathryn H documented in this encounter Plan of Treatment Upcoming Encounters Date Type Department Care Team (Late st Contact Info) Description 05/28/2024 8:00 AM EDT Office Visit Hematology/Oncology at [address] [phone] Rodriguez Fowler MD [facility] [place] [address] Sherry Cedillo [address] HEMATOLOGY AND ONCOLOGY [place], [place] [id number] 05/28/2024 8:30 AM EDT Infusion Hematology Oncology at [address] [phone] 05/28/2024 9:30 AM EDT Clinical Support Hematology/Oncology at [address] [phone] [facility] [place] [address] documented as of this encounter Visit Diagnoses Diagnosis Erythrocytosis Polycythemia, secondary Microcytosis Other abnormality of red blood cells Duodenal adenocarcinoma Malignant neoplasm of duodenum documented in this encounter Care Teams Unemployment Insurance Hearing Officer Relationship Specialty Start Date End Date Olga Hoffman APRN [address] [place] [address] PCP - General Family Medicine 10/30/22 documented as of this encounter
--- OUTSIDE RECORDS SUMMARY | 2024-05-27 18:02 | XMS_ITS | Encounter Summary ---
Author Organization [facility] Address [facility] [place] [address] Care Team Providers Care Oil Recovery Unit Operator Name Role Phone Olga Hoffman YOCASTA Primary Care Provider [phone] Encounter Details Date Type Department Care Team [...] 8:00 AM EDT Office Visit Hematology/Oncology at [address] [phone] Rodriguez Fowler MD [facility] [place] [address] Sherry Cedillo RETURNS SUPERVISOR [address] [place] [address] DR HEMATOLOGY AND ONCOLOGY [place], [place] [id number] 05/28/2024 8:30 AM EDT Infusion Hematology Oncology at [address] [phone] 05/28/2024 9:30 AM EDT Clinical Support Hematology/Oncology at [address] [phone] [facility] DR HEMATOLOGY [place] [address] documented as of this encounter Visit Diagnoses Not on filedocumented in this encounter Care Teams Oil Recovery Unit Operator Relationship Specialty Start Date End Date Olga Hoffman APRN [address] [place] [address] PCP - General Family Medicine 10/30/22 documented as of this encounter
--- OUTSIDE RECORDS SUMMARY | 2024-05-27 18:02 | XMS_ITS | Encounter Summary ---
[place] [address] Care Team Providers Care Metallurgical Engineering Teacher Name Role Phone Olga Hoffman APRN Primary Care Provider [phone] [phone] Reason for Referral * Consultation (Routine) - Authorized Specialty Diagnoses / Procedures Referred By Janak holland Referred To Contact Plastic Surgery Diagnoses Hypertrophy of breast GYNECOMASTIA Olga Hoffman APRN [address] [place] [address] [facility] [address] [place] [phone] Referral ID Status Reason Start Date Expiration Date Visits Requested Visits Authorized [id number] Authorized Consult, Test & Treat PCP Updated and/or Approved 12/05/2023 06/06/2024 6 6 Encounter Details Date Type Department Care Team (Latest Contact Info) Description 12/11/2023 Transcribe Orders eDH Incoming Referrals [phone] Olga Hoffman APRN [address] [place] [address] Hypertrophy of breast Social History [...] AM EDT Office Visit Hematology/Oncology at [address] [phone] Rodriguez Fowler MD [facility] [place] [address] Sherry Cedillo APRN [address] [place] [address] DR [facility]ATOLOGY [facility]Y C[facility] [place], [place] [address] 05/28/2024 8:30 AM EDT Infusion Hematology Oncology at [address] [phone] 05/28/2024 9:30 AM EDT Clinical Support Hematology/Oncology at [address] [phone] Leah Rose, ARASH [facility] DR [place] [address] Scheduled Referrals Name Type Priority Associated Diagnoses Orde r Schedule Referral to Plastic Surgery Outpatient Referral Routine Hypertrophy of breast Ordered: 12/11/2023 documented as of this encounter Visit Diagnoses Diagnosis Hypertrophy of breast Duodenal adenocarcinoma Malignant neoplasm of duodenum documented in this encounter Care Teams Metallurgical Engineering Teacher Relationship Specialty Start Date End Date Olga Hoffman APRN [address] [place] [address] PCP - General Family Medicine 10/30/22 documented as of this encounter
--- OUTSIDE RECORDS SUMMARY | 2024-05-27 18:02 | XMS_ITS | Encounter Summary ---
Author Organization [facility] [place] [address] Care Team Providers Care Jewel Corner Brushing Machine Operator Name Role Phone Olga Hoffman APRN Primary Care Provider [phone] [phone] Reason for Referral * Diagnostic Test (Routine) - Closed Specialty Diagnoses / Procedures Referred By Contac t Referred To Contact Radiology Diagnoses Duodenal adenocarcinoma Procedures NM PET CT Skull Base to Mid-[facility] Jaki Phillips [address] [place] [address] [place] [address] Referral ID Status Reason Start Date Expiration Date V isits Requested Visits Authorized [id number] Closed Specialty Service Requested 01/13/2024 07/14/2025 1 1 Reason for Visit * Diagnostic Test (Routine) - Closed Specialty Diagnoses / Procedures Referred By Contac t Referred To Contact Radiology Diagnoses Duodenal adenocarcinoma Procedures NM PET CT Skull Base to Mid-thigh Jaki Phillips [address] [place] [address] [place] [address] Referral ID Status Reason Start Date Expiration Date V isits Requested Visits Authorized [id number] Closed Specialty Service Requested 01/13/2024 07/14/2025 1 1 Encounter Details Date Type Department Care Team (Latest Contact Info) Description 01/27/2024 12:05 PM EDT Hospital Encounter [place] [address] Jaki Phillips, DO [address] [facility] [address] [place] [address] Duodenal adenocarcinoma Discharge Disposition: Home Social History [...] AM EDT Office Visit Hematology/Oncology at [address] [phone] Rodriguez Fowler MD [facility] [place] [address] Sherry Cedillo APRN [address] [place] [address] DR HEMATOLOGY AND ONCOLOGY [place], [place] [phone] 05/28/2024 8:30 AM EDT Infusion Hematology Oncology at [address] [phone] 05/28/2024 9:30 AM EDT Clinical Support Hematology/Oncology at [address] [phone] Leah Rose, ARASH [facility] DR [place] [address] documented as of this encounter Procedures Procedure Name Priority Date/Time Associated Diagnosis Comments NM PET CT SKULL BASE TO MID-THIGH ([facility]) Routine 01/27/2024 1:46 PM EDT Duodenal adenocarcinoma documented in this encounter Results * NM PET CT Skull Base to Mid-thigh (01/27/2024 1:46 PM EDT) [employer] WORKSTATION ID [id number] RAD Anatomical Region Laterality Modality Positron Emissio [...] specialist that requested your imaging first. ? Narrative 01/29/2024 1:53 PM EDT EXAMINATION: NM PET CT STANDARD SKULL BASE TO MID-THIGH CLINICAL HISTORY: staging for duodenal adenocarcinoma C17.0, Malignant neoplasm of duodenum TECHNIQUE: Following IV injection of 77-lbilqq-5-deoxyglucose (FDG) a standard uptake of approximately 60 [...] of duodenum TECHNIQUE: Following IV injection of 82-ifstei-7-deoxyglucose (FDG) astandard uptake of approximately 60 minutes, [...] imaging first. Electronically signed by: Juan Oneil [facility] ([phone]),at 01/29/2024 1:53 PM Jaki Phillips DO IM PET ORDERABLES documented in this encounter Visit [...] mCi documented in this encounter Care Teams Jewel Corner Brushing Machine Operator Relationship Specialty Start Date End Date Olga Hoffman APRN [address] [place] [address] PCP - General Family Medicine 10/30/22 documented as of this encounter
--- OUTSIDE RECORDS SUMMARY | 2024-05-27 18:02 | XMS_ITS | Encounter Summary ---
Author Organization [facility] Address [facility] [place] [address] Care Team Providers Care Sales Management Trainee Name Role Phone Olga Hoffman APRN Primary Care Provider [phone] [phone] Encounter Details Date Type Department Care Team (Late st Contact Info) Description 01/26/2024 Ancillary Procedure Radiology Library at [facility] [phone] Olga Hoffman APRN [address] [place], [place] [id number] Social History Tobacco Use Types Packs/Day Years [...] AM EDT Office Visit Hematology/Oncology at [address] [phone] Rodriguez Fowler MD [facility] [place] [address] Sherry Cedillo APRN [address] [place] [address] DR HEMATOLOGY AND ONCOLOGY [place], [place] [phone] 05/28/2024 8:30 AM EDT Infusion Hematology Oncology at [address] [phone] 05/28/2024 9:30 AM EDT Clinical Support Hematology/Oncology at [address] [phone] [facility] DR HEMATOLOGY [place] [address] documented as of this encounter Procedures Procedure Name Priority Date/Time Associated Diagnosis Comments FILM LIBRARY STORAGE ONLY MR ABDOMEN Routine 01/26/2024 12:00 AM EDT documented in this encounter Results * Film Library- Storage Only MR Abdomen (01/26/2024 12:00 AM EDT) Narrative WILBERT JEAN B[facility]TISTE - 01/27/2024 10:32 AM EDT This exam is auto-finalizing. It's purpose is for storage only. Olga Hoffman APRN IMG FILM LIBRARY ORDERABLES [facility] documented in this encounter Visit Diagnoses Not on filedocumented in this encounter Care Teams Sales Management Trainee Relationship Specialty Start Date End Date Olga Hoffman APRN [address] [place] [address] PCP - General Family Medicine 10/30/22 documented as of this encounter
--- OUTSIDE RECORDS SUMMARY | 2024-05-27 18:02 | XMS_ITS | Encounter Summary ---
Author Organization Formerly [facility], [facility] Address One [facility] [place] [address] Care Team Providers Care Commercial Lending Assistant Name Role Phone Dalton Olgaevy Bell APRN Primary Care Provider +1 [phone] Encounter Details Date Type Department Care Team [...] AM EDT Office Visit Hematology/Oncology at [address] [phone] Rodriguez Fowler MD [facility] [place] [place] [address] Sherry Cedillo APRN [address] [place] [address] DR HEMATOLOGY AND ONCOLOGY [place], [place] [phone] 05/28/2024 8:30 AM EDT Infusion Hematology Oncology at [address] [phone] 05/28/2024 9:30 AM EDT Clinical Support Hematology/Oncology at [address] [phone] [facility] [address] HEMATOLOGY [place] [address] documented as of this encounter Visit Diagnoses Not on filedocumented in this encounter Care Teams Commercial Lending Assistant Relationship Specialty Start Date End Date Olga Hoffman APRN [address] [place] [address] PCP - General Family Medicine 10/30/22 documented as of this encounter
--- OUTSIDE RECORDS SUMMARY | 2024-05-27 18:02 | XMS_ITS | Encounter Summary ---
Author Organization [facility] [place] [address] Care Team Providers Care Staff Development Coordinator Rn Name Role Phone Dalton Olgaevy Bell APRN Primary Care Provider +1 [phone] Reason for Visit * Auth/Cert (Routine) Specialty Diagnoses / Procedures Referred By Contac t Referred To Contact Diagnoses Malignant neoplasm of duodenum DUODENUM ADENCARCINOMA Procedures PRO PART REMV PANC, PROX+REMV DUOD+ANAST @WHIPPLE PROCEDURE (WRVU 52.84) Rudi Hernandez MD [facility] [place] [address] [facility] Referral ID Status Reason Start Date Expiration Date Visits Re quested Visits Authorized [id number] 1 1 Encounter Details Date Type Department Care Team (Late st Contact Info) Description 03/01/2024 7:43 AM EDT Anesthesia Event [place] [address] Gary Scott MD [facility] [place] [address] Campbell Rahman CRNA [facility] [place] [address] Anesthesia Record Procedure Summary Procedure Name Responsible [...] and acknowledgement of understanding Diane Sexton MD 9132 ABG Data Arterial Blood Gas result: pH 7.399 pCO2 35.2 pO2 188.3 %O2 Sat 99 FiO2 52 HCO3 21.3 BE -3.6 Hb 14.6 K 4.33 Glucose 162 Lactate 2.1 175 Break/Relief Out 1823 Extubation/LMA Out 1834 an stop data 184 Recovery or ICU Handoff Nuira ent care was transferred to the destination [...] by Bernadette Ford RN PIV 03/01/24; 0741; rvqa-zii-xrlcpo catheter system; 20 gauge; dorsal arch vein (top of hand), left; Anatomical Landmarks; pre op nurse; removed per policy/procedure, site symptomatic, catheter/device intact; 03/07/24; 1732 03/01/24 0741 by Campbell Rahman, ERP IMPLEMENTATION CONSULTANT 03/07/24 173 by Ginny Bill RN ETT Mask Ventilation: Pk price (1); ETT Type: Cuffed, Oral; ETT Size: 8 mm; Mac Blade: 4; Notes: Asleep, Pre-O2, Cricoid Pressure; Attempts: 1; Laryngoscopy Grade: 2; ETT Placement Verified By: Auscultation, Capnometry, Visual; Secured at Teeth: 23 cm; Inserted by: Zeferino Rahman; Removal Date: 03/01/24; Removal Time: 182303/01/24 075 by Campbell Rahman, ERP IMPLEMENTATION CONSULTANT 03/01/24 1824 by Campbell Rahman, ERP IMPLEMENTATION CONSULTANT PIV 03/01/24; 0800; wlgm-dvr-jafykf catheter system; 18 gauge; dorsal arch vein (top of hand), right; Anatomical Landmarks; Diane Sexton; 03/06/24; 1551 03/01/24 0800 by Campbell Rahman, ERP IMPLEMENTATION CONSULTANT 03/06/24 1551 by Dilma Dominique RN Urethral [...] indicated; 03/01/24; 213403/01/24 08 by Campbell Rahman, ERP IMPLEMENTATION CONSULTANT 03/01/242134 by Roxie Rascon RN NG/OG Tube 03/01/24; 0917; odell t nostril; by at bedside; 03/03/24; 1143 03/01/24 0917 by Campbell Rahman CRNA 03/03/24 1143 by Violeta Manley RN Closed/Suction Drain 03/01/24; 1740; 1; Midline, Superior; Bulb; 19 Luxembourgish 03/01/24 1740 by Marisol Galvan RN 03/05/24 1540 by Dilma Dominique RN documented in this encounter Social History Tobacco Use Types Packs/Day Years Used Date Smoking Tobacco: Never Smokeless Tobacco: Never Alcohol Use Standard Drinks/Week Comments Not Currently 0 (1 standard drink = 0.6 oz pur e alcohol) [facility] Utilities Answer Date Recorded In the [...] in the past 12 m [facility], were you homeless or living in a snf (including now)? No 03/02/2024 DH IPV Inpatient [...] Procedure Summary Date: 03/01/24 Room / Location: [address] MAIN OR Anesthesia Start: 742 Anesthesia Stop: 1843 Procedure: @WHIPPLE PROCEDURE (WRVU 52.84) (Abdomen) Diagnosis: (DUODENUM ADENCARCINOMA) Surgeons: Rudi Hernandez MD Responsible Provider: Gary Scott MD Anesthesia Type: general ASA Status: 3 All Anesthesia Providers: Anesthesiologist: Gary Scott MD; Diane Sexton MD ERP IMPLEMENTATION CONSULTANT: Campbell Rahman CRNA Vitals Value Taken Time BP 107/63 03/02/24 1116 Temp 36 ??C (96.8 ??F) 03/02/24 1116 Pulse 86 03/01/24 2149 Resp 18 03/02/24 1116 SpO2 94 % 03/02/24 1253 Pain Level 0 03/02/24 0843 Vitals shown include unfiled device data. Patient Location: PACU/[facility] Level of Consciousness: Conscious but Sleepy Pain [...] Iohexol 300 mgI/mL, 2 mL Performed by: Resident/ERP IMPLEMENTATION CONSULTANT: Juan Michelle MD Attending Physician: Shyla Bird MD Authorized by: Shyla Bird MD ~~~~~~~~~~~~~~~~~~~~~~~~~~~~~~~~~~~~~~~~~~~~~~~~~~~~~~~~~~~~ * Anesthesia Preprocedure Evaluation - Diane Sexton MD - 03/01/2024 6:54 AM EDT Pre-Anesthesia Evaluation for: Charles Nick a 48 y.o. male. Procedure(s): @[facility] Patient Active Problem List Diagnosis Date Noted CKD (chronic kidney disease) stage 3, GFR 30-59 ml/min 01/31/2011 Obesity 01/31/2011 Past Medical History: Diagnosis Date CKD (chronic kidney disease) stage 3, GFR 30-59 ml/min 01/31/2011 Obesity 01/31/2011 Past Surgical History: Procedure Laterality Date IR BIOPSY LIVER PERCUTANEOUS - NON-FOCAL PARENCHYMA 01/07/2023 IR Biopsy Liver Percutaneous 01/07/2023 Juan Wright [facility] Social History Tobacco Use [...] consented to blood products. Plan discussed with ERP IMPLEMENTATION CONSULTANT. Anesthesia Screening documented in this encounter Plan of Treatment Upcoming Encounters Date Type Department Care Team (Late st Contact Info) Description 05/28/2024 8:00 AM EDT Office Visit Hematology/Oncology at [address] [phone] Rodriguez Fowler MD [facility] [place] [address] Sherry Cedillo APRN [address] [place] [address] DR HEMATOLOGY AND ONCOLOGY [place], [place] [address] 05/28/2024 8:30 AM EDT Infusion Hematology Oncology at [address] [phone] 05/28/2024 9:30 AM EDT Clinical Support Hematology/Oncology at [address] [phone] [facility] [address] HEMATOLOGY [place] [address] documented as of this encounter Procedures Procedure Name Priority Date/Time Associated Diagnosis Comments [id number] ONLY Routine 03/01/2024 7:21 AM EDT documented in this encounter Results * [id number] ONLY (03/01/2024 7:21 AM EDT) Narrative Shyla [...] 300 mgI/mL, 2 mL Performed by: ?? Resident/ERP IMPLEMENTATION CONSULTANT: ? Juan Michelle MD ?? Attending Physician: ? Shyla Bird MD Authorized by: Shyla Bird MD ?? ~~~~~~~~~~~~~~~~~~~~~~~~~~~~~~~~~~~~~~~~~~~~~~~~~~~~~~~~~~~~ Shyla Bird MD [facility] documented in this encounter Visit Diagnoses [...] indication (state the indication in comments field) / allergy to zosyn Given 03/01/2024 8:16 AM EDT 750 mg [...] mg documented in this encounter Care Teams Staff Development Coordinator Rn Relationship Specialty Start Date End Date Olga Hoffman APRN [address] [place] [address] PCP - General Family Medicine 10/30/22 documented as of this encounter
--- OUTSIDE RECORDS SUMMARY | 2024-05-27 18:02 | XMS_ITS | Encounter Summary ---
Author Organization Formerly [facility], [facility] Address [facility] [place] [address] Care Team Providers Care Battery Recharger Name Role Phone Olga Hoffman APRN Primary Care Provider [phone] [phone] Encounter Details Date Type Department Care Team [...] a nursing home (including now)? No 01/23/2023 Sex and Gender Information Value Date Recorded Sex Assigned at Not on file Gender Identity Not on file Sexual Orientation Not on file documented as of this encounter Plan of Treatment Upcoming Encounters Date Type Department Care Team (Late st Contact Info) Description 05/28/2024 8:00 AM EDT Office Visit Hematology/Oncology at [address] [phone] Rodriguez Fowler MD [facility] [place] [place] [address] Sherry Cedillo APRN [address] [place] [address] DR HEMATOLOGY AND ONCOLOGY [place], [place] [phone] 05/28/2024 8:30 AM EDT Infusion Hematology Oncology at [address] [phone] 05/28/2024 9:30 AM EDT Clinical Support Hematology/Oncology at [address] [phone] [facility] DR HEMATOLOGY [place] [address] documented as of this encounter Visit Diagnoses Not on filedocumented in this encounter Care Teams Battery Recharger Relationship Specialty Start Date End Date Olga Hoffman APRN [address] [place] [address] PCP - General Family Medicine 10/30/22 documented as of this encounter
--- OUTSIDE RECORDS SUMMARY | 2024-05-27 18:02 | XMS_ITS | Encounter Summary ---
Author Organization [facility] Address [facility] [place] [address] Care Team Providers Care Director Of Special Education Name Role Phone Olga Hoffman APRN Primary Care Provider [phone] [phone] Encounter Details Date Type Department Care Team (Latest Contact Info) Description 01/12/2024 11:28 AM EDT - 01/12/2024 11:59 PM EDT [place] [address] Discharge Disposition: Home Social History Tobacco Use [...] AM EDT Office Visit Hematology/Oncology at [address] [phone] Rodriguez Fowler MD [facility] [place] [address] Sherry Cedillo APRN [address] [place] [address] DR HEMATOLOGY AND ONCOLOGY [place], [place] [phone] 05/28/2024 8:30 AM EDT Infusion Hematology Oncology at [address] [phone] 05/28/2024 9:30 AM EDT Clinical Support Hematology/Oncology at [address] [phone] [facility] DR HEMATOLOGY [place] [address] documented as of this encounter Procedures Procedure Name Priority Date/Time Associated Diagnosis Comments SURGICAL PATHOLOGY REPORT Routine 01/12/2024 11:28 AM EDT documented in this encounter Results * (ABNORMAL) Surgical Pathology Report (01/12/2024 11:28 AM EDT) Final Diagnosis [id number] ? Location: OPW The signing pathologist has (i) examined the relevant preparation(s) for the specimen(s) and (ii) rendered or confirmed the diagnosis(es). . ? Addendum ADDENDUM DISCUSSION B - Outside slide(s) labeled [id number], collection date 01/02/2024. 1. Small Intestine, duodenal [...] tests. Block ? Antibody ? Result (Positive/Negative) [id number] ??MLH1 ? intact nuclear staining in tumor [...] The assay was performed according to the grove worker's instructions using anti-MLH-1 (ES05), anti-MSH-2 ([id number]), anti-MSH-6 (44), and anti-PMS-2 (MRQ-28) antibodies. Electronically signed by: ?Dyan Lieberman MD Verified: ??02/19/2024 11:14 ??Pathologist Performed at: ??-[facility] Dept. of Pathology, [place] [id number] Thermodynamics Teacher: Lee Sutton MD, FCAP, ??CLIA Certificate: [id number] ?Surgical Pathology DIAGNOSIS CONSULTATION CASE A - Outside slide(s) labeled [id number], collection date 12/05/2022. 1. Small Intestine, Duodenal [...] ??Tubular adenoma. B - Outside slide(s) labeled [id number], collection date 01/02/2024. . DIAGNOSIS 1. Small Intestine, duodenal polyp: - Invasive moderately differentiated adenocarcinoma. - Lymphovascular invasion is present (supported with outside submitted ERG and CD31 immunostains). Electronically signed by: ?Mio KAUFMAN, Dyan Verified: ??01/22/2024 16:12 ??Pathologist Performed at: ??-[facility] Dept. of Pathology, [place] [address] Thermodynamics Teacher: Lee Sutton MD, FCAP, ??CLIA Certificate: [id number] DISCUSSION THIS RESULT REQUIRES PHYSICIAN/A.P.P. FOLLOW UP ADDITIONAL STUDIES Whole slide scan: [id number] part A-1 [id number] part B and stains SPECIMEN(S) SUBMITTED CONSULTATION CASE A - 2 slide(s) labeled [id number], collection date 12/05/2022. B - 3 slide(s) labeled [id number], collection date 01/02/2024. [id number] CARBON COPY: [facility] Surgical Pathology Department [facility], [facility], 2nd Floor [address] [place], [place] ??[address] CLINICAL INFORMATION . SPECIMEN PROCESSING [facility] ([facility]) pathology slide(s) are reviewed. Refer to Diagnosis and Specimen Submitted for specific case information. For the full text of the [facility] report(s) please refer to the Chart Review Media tab in the electronic health record (eDH).(A) 02/19/2024 11:[address] [facility] Consult Case 01/12/2024 11:2 8 AM EDT 01/12/2024 11:28 AM EDT Consult Case 01/12/2024 11:2 8 AM EDT 01/12/2024 11:28 AM EDT Faye Maxwell MD PATHOLOGY/CYTOLOGY O RDERABLES [facility] [place] [id number] documented in this encounter Visit Diagnoses Not on filedocumented in this encounter Care Teams Director Of Special Education Relationship Specialty Start Date End Date Olga Hoffman APRN [address] [place] [address] PCP - General Family Medicine 10/30/22 documented as of this encounter
--- OUTSIDE RECORDS SUMMARY | 2024-05-27 18:02 | XMS_ITS | Encounter Summary ---
Author Organization Formerly [facility] [place] [address] Care Team Providers Care Seat Builder Name Role Phone Olga Hoffman APRN Primary Care Provider [phone] [phone] Encounter Details Date Type Department Care Team (Late st Contact Info) Description 02/26/2024 Orders Only General Surgery at [facility] [place] [phone] June Delacruz Duodenal cancer (Primary Dx) Social [...] 8:00 AM EDT Office Visit Hematology/Oncology at [address] [phone] Rodriguez Fowler MD [facility] [place] [address] Sherry Cedillo APRN [address] [place] [address] DR HEMATOLOGY AND ONCOLOGY [place], [place] [address] 05/28/2024 8:30 AM EDT Infusion Hematology Oncology at [address] [phone] 05/28/2024 9:30 AM EDT Clinical Support Hematology/Oncology at [address] [phone] [facility] DR [place] [address] documented as of this encounter Results * (ABNORMAL) Creatinine (03/01/2024 7:04 AM EDT) Creatinine 0.77(L) 0.80 - 1.50 mg/dL [facility] Est Glomerular Filtration Rate 110 >=60 mL/min/1. 73 m?? 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
--- OUTSIDE RECORDS SUMMARY | 2024-05-27 18:02 | XMS_ITS | Encounter Summary ---
Author Organization [facility] [place] [address] Care Team Providers Care Line And Frame Poler Name Role Phone Olga Hoffman APRN Primary Care Provider [phone] -[phone] Reason for Visit * Reason Comments Establish Care * Consultation (Urgent) - Authorized Specialty Diagnoses / Procedures Referred By Janak holland Referred To Contact General Surgery Diagnoses Adenocarcinoma of duodenum Jaki Phillips, DO [address] [facility] [facility] [address] [address] [place] [address] [place] [address] [facility] [place] [place] Gen Surgery [place] [address] Referral ID Status Reason Start Date Expiration Date Visits Requested Visits Authorized [id number] Authorized Consult, Test & Treat PCP Updated and/or Approved 01/09/2024 01/08/2025 6 6 Encounter Details Date Type Department Care Team (Late st Contact Info) Description 02/03/2024 1:00 PM EDT Office [place] [address] Rudi Hernandez MD [facility] [place] [address] Duodenal cancer; Class 2 severe [...] in a custodial (including now)? 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 No evidence pulmonary embolism, thoracic aortic dissection or aneurysm. 2. No acute pulmonary process 3. Question of mild wall thickening in the small bowel which may represent enteritis. Please correlate clinically MR abdomen 01/26/2024 Outside read from [facility] 1. 2 cm mass seen in the descending duodenum. 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 2. 5 mm nodule along the posterior wall of the loop of small bowel in the central abdomen. This maysimply be enteric content versus mass. 3. No evidence of abdominal metastatic disease MR pelvis 01/1324 Outside read from [facility] Impression: 1. Questionable of proximal sigmoid [...] fatty liver disease, type [facility], with a newly diagnosed duodenal adenocarcinoma. [...] prefers that this be done locally at [facility]. I will place an external order and [...] 8:00 AM EDT Office Visit Hematology/Oncology at [address] [phone] Rodriguez Fowler MD [facility] [place] [address] Sherry Cedillo APRN [address] [place] [address] DR HEMATOLOGY AND ONCOLOGY [place], [place] [phone] 05/28/2024 8:30 AM EDT Infusion Hematology Oncology at [address] [phone] 05/28/2024 9:30 AM EDT Clinical Support Hematology/Oncology at [address] [phone] [facility] DR [place] [address] documented as of this encounter Procedures Procedure Name Priority Date/Time Associated Diagnosis Comments CEA Routine 02/03/2024 2:28 PM EDT Duodenal cancer documented in this encounter Results * CEA (02/03/2024 2:28 PM EDT) Carcinoembryonic Antigen 1.4 <=3.8 ng/mL [facility] Comment: Reference range: ??(20-69 years): Non-smoker: ??less than or equal to 3.8 ng/mL Smoker: ??less than 5.5 ng/ml This result was generated using a Amanda Bonifacio immunoassay. ??Results obtained from other methods or manufacturers cannot be used interchangeably with this method. Blood 02/03/2024 2:28 PM EDT 02/03/2024 2:52 PM EDT Narrative Resulting Agency Comment Spec In Lab Rudi Hernandez MD CHEMISTRY ORDERABLES [facility] [place] [address] documented in this encounter Visit Diagnoses Diagnosis Duodenal cancer Malignant neoplasm of duodenum Class 2 severe obesity with serious comorbidity and body mass index (BMI) of 37.0 to 37.9 in adult, unspecified obesity type Duodenal adenocarcinoma Malignant neoplasm of duodenum documented in this encounter Care Teams Line And Frame Poler Relationship Specialty Start Date End Date Olga Hoffman APRN [address] [place] [address] PCP - General Family Medicine 10/30/22 documented as of this encounter
--- OUTSIDE RECORDS SUMMARY | 2024-05-27 18:02 | XMS_ITS | Encounter Summary ---
Author Organization [facility] Address [facility] [place] [address] Care Team Providers Care Service Observer Chief Name Role Phone Olga Hoffman APRN Primary Care Provider [phone] [phone] Encounter Details Date Type Department Care Team (Late st Contact Info) Description 01/12/2024 External Results [place] [address] Provider, Scanning Social History Tobacco [...] 8:00 AM EDT Office Visit Hematology/Oncology at [address] [phone] Rodriguez Fowler MD [facility] [place] [place] [address] Sherry Cedillo APRN [address] [place] [address] DR HEMATOLOGY AND ONCOLOGY [place], [place] [phone] 05/28/2024 8:30 AM EDT Infusion Hematology Oncology at [address] [phone] 05/28/2024 9:30 AM EDT Clinical Support Hematology/Oncology at [address] [phone] [facility] DR HEMATOLOGY [place] [address] documented as of this encounter Procedures Procedure Name Priority Date/Time Associated Diagnosis Comments SURGICAL PATHOLOGY SCAN Routine 01/12/2024 documented in this encounter Results * Scan Doc: Surgical Pathology (01/12/2024) Historical Provider MD HEAD MGR SCAN EX T ORDR/RSLT documented in this encounter Visit Diagnoses Not on filedocumented in this encounter Care Teams Service Observer Chief Relationship Specialty Start Date End Date Olga Hoffman APRN [address] [place] [address] PCP - General Family Medicine 10/30/22 documented as of this encounter
--- OUTSIDE RECORDS SUMMARY | 2024-05-27 18:02 | XMS_ITS | Encounter Summary ---
Author Organization [facility] [place] [place] [address] Care Team Providers Care Supervisor Sintering Plant Name Role Phone Olga Hoffman APRN Primary Care Provider [phone] Reason for Referral * Diagnostic Test (Routine) - Closed Specialty Diagnoses / Procedures Referred By Contac t Referred To Contact Radiology Diagnoses CHAN (nonalcoholic steatohepatitis) Procedures IR Biopsy Liver Percutaneous Eugenia Barrera [facility] [place] [address] [place] [address] Referral ID Status Reason Start Date Expiration Date V isits Requested Visits Authorized [id number] Closed Specialty Service Requested 12/25/2022 06/26/2024 1 1 Reason for Visit * Diagnostic Test (Routine) - Closed Specialty Diagnoses / Procedures Referred By Contac t Referred To Contact Radiology Diagnoses CHAN (nonalcoholic steatohepatitis) Procedures IR Biopsy Liver Percutaneous Eugenia Barrera [facility] [place] [address] [place] [address] Referral ID Status Reason Start Date Expiration Date V isits Requested Visits Authorized [id number] Closed Specialty Service Requested 12/25/2022 06/26/2024 1 1 Encounter Details Date Type Department Care Team (Latest Contact Info) Description 01/07/2023 7:15 AM EDT - 01/07/2023 11:59 PM EDT Hospital Encounter Radiology at [facility] [place] [address] Eugenia Barrera APRN [facility] [place] [address] CHAN (nonalcoholic steatohepatitis) Discharge Disposition: Home Social [...] Dickey LPN - 01/07/2023 8:29 AM EDT [facility] Vascular and Interventional Radiology Biopsy Discharge Instructions [...] reported to you by your primary healthcare sales representative or the clinician who ordered the biopsy. Please do not call us for results as we will not have them. If you have not been contacted by your clinician within 5 business days you should call that officefor further information. When to call the Interventional Radiology Department: Please call with any questions or concerns. If it is during regular office hours, please call [phone]. If it is after regular office hours, or on weekends or holidays, please call [phone] and ask to speak to the Asphalt Worker wildfire prevention specialist for Interventional Radiology. You have received medication [...] of : 1975 AGE: 47 y.o. Address: [address] [place] [id number] (home) [phone] (work) Mobile: Telephone Information: Referring Provider: Eugenia Barrera REASON FOR VISIT: Order Questions Answers Where will study be performed? [facility] Radiology [120] Reason for exam and clinical [...] AM EDT Office Visit Hematology/Oncology at [address] [phone] Rodriguez Fowler MD [facility] [place] [address] Sherry Cedillo APRN [address] [place] [address] DR HEMATOLOGY AND ONCOLOGY [place], [place] [id number] 05/28/2024 8:30 AM EDT Infusion Hematology Oncology at [address] [phone] 05/28/2024 9:30 AM EDT Clinical Support Hematology/Oncology at [address] [phone] [facility] DR HEMATOLOGY [place] [address] documented as of this encounter Procedures Procedure [...] resident for the entire procedure. Eugenia Barrera APRN [facility] IR ORDERABLES * Surgical Pathology Report (01/07/2023 8:32 AM EDT) Final Diagnosis [id number] ? Location: [id number] The signing pathologist has (i) examined the [...] ?3 Cirrhosis ? 4 Electronically signed by: ?China KAUFMAN, Luis Verified: ??01/08/2023 16:19 ??Pathologist Performed at: ??-[facility] Dept. [place]ology, [place] [address] Purchasing Associate: Lee Sutton MD, FCAP, ??CLIA Certificate: [id number] ADDITIONAL STUDIES Whole slide scan: A1, trichrome [...] labeled A1. ??sns 01/08/2023 4:19 PM EDT [facility] LIVER STRUCTURE / Unknown 01/07/2023 8:32 AM EDT 01/07/2023 8:32 AM EDT Juan Wright MD PATHOLOGY/CYTOLOGY O RDERABLES [facility] [place] [address] [facility] [place] [address] * POCT Glucose (01/07/2023 7:36 AM EDT) Glucose, POC 139 65 - 199 mg/dL [facility] Comment: Supplemental ranges: <140 mg/dL before meals <180 mg/dL all other times of the day Blood 01/07/2023 7:36 AM EDT 01/07/2023 7:36 AM EDT Eugenia Barrera MICROSTRATEGY BI DEVELOPER POINT OF CARE TEST ORDERABLES [facility] [place] [address] * Specimen to Pathology (01/07/2023 7:22 AM EDT) AP Specimen 01/07/2023 7:22 AM EDT 01/07/2023 7:22 AM EDT Narrative [facility] - 01/07/2023 7:22 AM EDT Specimen requisition ordered. ??Separate Pathology report to follow Juan Wrihgt MD PATHOLOGY/CYTOLOGY O RDERABLES Performing Organization Address City/[facility]/[place] [address] documented in this encounter Visit Diagnoses Diagnosis CHAN (nonalcoholic steatohepatitis) Other chronic nonalcoholic liver disease Duodenal adenocarcinoma Malignant neoplasm of duodenum documented in this encounter Administered Medications Inactive Administered Medications - up to 3 most recent administrations Medication Order MAR Action Action Date Dose Rate Site fentaNYL (pf) (50 mcg/mL) multi-dose injection 25-50 mcg 25-50 mcg, Intravenous, EVERY 3 MIN PRN, Starting on 01/07/23 at 0729, Until Fri01/07/23 at 1045, Pain, per unit protocol, For [...] 10 mg, Subcutaneous, ONCE, 1 dose, On 01/07/23 at 0745, For use in Interventional Radiology (IR) only for procedure with direct provider supervision and verbal order., Angio/IR (Intra-Procedure), Routine Given 01/07/2023 8:24 AM EDT 10 mg midazolam (pf) (Versed) (1 mg/mL) multi-dose injection 0.5-1 mg 0.5-1 mg, Intravenous, EVERY 3 MIN PRN, Starting on 01/07/23 at 0729, Until 01/07/23 at 1045, Sedation, For use in Interventional [...] mg documented in this encounter Care Teams Supervisor Sintering Plant Relationship Specialty Start Date End Date Olga Hoffman APRN [address] [place] [address] PCP - General Family Medicine 10/30/22 documented as of this encounter
--- OUTSIDE RECORDS SUMMARY | 2024-05-27 18:02 | XMS_ITS | Encounter Summary ---
Author Organization [facility] [address] Care Team Providers Care Janitor And Cleaner Name Role Phone Olga Hoffman APRN Primary Care Provider [phone] Encounter Details Date Type Department Care Team (Late st Contact Info) Description 02/20/2024 Orders Only General Surgery at [facility] [place] [phone] Mira Solomon, RN Social History Tobacco Use [...] AM EDT Office Visit Hematology/Oncology at [address] [phone] Rodriguez Fowler MD [facility] [place] [address] Sherry Cedillo APRN [address] [place] [address] DR HEMATOLOGY [place] [address] 05/28/2024 8:30 AM EDT Infusion Hematology Oncology at [address] [phone] 05/28/2024 9:30 AM EDT Clinical Support Hematology/Oncology at [address] [phone] Leah Rose, RD [facility] DR HEMATOLOGY [place] [address] documented as of this encounter Visit Diagnoses Not on filedocumented in this encounter Care Teams Janitor And Cleaner Relationship Specialty Start Date End Date Olga Hoffman APRN [address] [place] [address] PCP - General Family Medicine 10/30/22 documented as of this encounter
--- OUTSIDE RECORDS SUMMARY | 2024-05-27 18:02 | XMS_ITS | Encounter Summary ---
[place] [address] Care Team Providers Care Blending Kettle Tender Name Role Phone Olga Hoffman APRN Primary Care Provider [phone] Encounter Details Date Type Department Care Team (Latest Contact Info) Description 01/24/2023 10:31 AM EDT - 01/24/2023 11:59 PM EDT Hospital Encounter Hematology [place] [address] Type 2 diabetes mellitus with diabetic nephropathy, [...] AM EDT Office Visit Hematology/Oncology at [address] [phone] Rodriguez Fowler MD [facility] [place] [address] Sherry Cedillo APRN [address] [place] [address] DR HEMATOLOGY AND ONCOLOGY [place], [place] [phone] 05/28/2024 8:30 AM EDT Infusion Hematology Oncology at [address] [phone] 05/28/2024 9:30 AM EDT Clinical Support Hematology/Oncology at [address] [phone] [facility] DR [place] [address] Scheduled Orders Name Type Priority Associated Diagnoses [...] 10:42 AM EDT) Neutrophil % 67.5 % [facility] Neutrophil Absolute 5.62 1.70 - 6.10 x10(3)/mc L [facility] Lymph % 24.1 % [facility] Lymphocytes Abs 2.0 0.9 - 3.2 x10(3)/ L [facility] Monocyte % 5.0 % [facility] Monocyte Abs 0.4 0.3 - 0.9 x10(3)/[facility]OR[facility] Eos % 1.6 % [facility] Eosinophils Abs 0.1 0.0 - 0.4 x10(3)/[facility]OR[facility]ORY Basophil % 0.8 % [facility] Baso Absolute 0.1 0.0 - 0.1 x10(3)/[facility]ORATORY Immature Gran % 1.00 % [facility] Comment: Immature granulocytes(IG's)percentage and absolute count will include metamyelocytes, myelocytes, and promyelocytes. Blood smears from CBCs yielding IG's will be scanned manually for concordance. If this scan disagrees with the automated IG or if promyelocytes are noted, a manual differential will be performed. Immature Gran Absolute 0.08(H) 0.00 - 0.04 x10(3)/ L [facility] Blood 01/24/2023 10:4 2 AM EDT 01/24/2023 10:51 AM EDT Narrative Resulting Agency Comment Spec In Lab Faey Maxwell MD HEMATOLOGY ORDERABLE S [facility] [place] [address] * (ABNORMAL) Hemogram (01/24/2023 10:42 AM EDT) White Blood Cell 8.3 4.0 - 9.5 x10(3)/[facility] LABORAT[facility] Red Blood Cell 5.93(H) 4.58 - 5.54 x10(6)/[facility] Hemoglobin 14.8 13.7 - 16.5 g/dL [facility] Hematocrit 45.1 40.5 - 48.5 % [facility] Mean Cell Volume 76.1(L) 82.9 - 93.1 fL [facility] Mean Cell Hemoglobin 25.0(L) 27.5 - 32.1 pg [facility] Mean Cell Hemoglobin Concentration 32.8 32.0 - 35.7 g/dL [facility] Platelet 206 145 - 357 x10(3)/mc L [facility] RDW Standard Deviation 40.2 36.0 - 45.0 fL [facility] RDW coefficient of variation 14.8(H) 11.4 - 13.8 % [facility] Mean Platelet Volume 10.4 7.6 - 12.9 fL [facility] NRBC% auto 0.0 % [facility] NRBC Absolute 0.000 0.000 - 0.000 x10(3)/ L [facility] Blood 01/24/2023 10:4 2 AM EDT 01/24/2023 10:51 AM EDT Narrative Resulting Agency Comment Spec In Lab Faye Maxwell MD HEMATOLOGY ORDERABLE S [facility] [place] [address] * Iron and TIBC (01/24/2023 10:42 AM EDT) Iron 67 45 - 160 mcg/dL [facility] TIBC 304 250 - 450 mcg/dL [facility] Iron Saturation 22 20 - 50 % [facility] Blood 01/24/2023 10:4 2 AM EDT 01/24/2023 10:51 AM EDT Narrative Resulting Agency Comment Spec In Lab Veena Cunningham MD CHEMISTRY ORDERA BLES [facility] [place] [address] * (ABNORMAL) Reticulocyte Count (01/24/2023 10:42 AM EDT) Reticulocyte % 1.0 0.7 - 2.6 % [facility] Retic Abs # 0.060 0.030 - 0.120 x10(6)/mcL [facility] Immature Retic% 5.7 0.0 - 15.6 % [facility] Reticulated Hgb 27.7(L) 31.3 - 40.2 pg [facility] Blood 01/24/2023 10:4 2 AM EDT 01/24/2023 10:51 AM EDT Narrative Resulting Agency Comment Spec In Lab Veena Cunningham MD HEMATOLOGY ORDER DEDRA Performing Organization Address City/[facility]/ZIP Co de Phone Number [facility] [place] [address] * Ferritin (01/24/2023 10:42 AM EDT) [facility] Ferritin 113 30 - 400 ng/mL [facility] Comment: Pediatric reference ranges not verified at [facility], interpret with caution. Reference ranges for females greater than 50 years of age approach values for men, i.e., 30-400 ng/mL. Blood 01/24/2023 10:4 2 AM EDT 01/24/2023 10:51 AM EDT Narrative Resulting Agency Comment Spec In Lab Veena Cunningham MD CHEMISTRY ORDERA BLES Performing Organization Address [facility] Co de Phone Number [facility] [place] [address] * JAK2 [id number], Exon12, and Other Non-V617F Mut (01/24/2023 10:42 AM EDT) [facility] Somatic JAK2 Result Negative [facility] Somatic JAK2 Interp JAK2 Somatic [...] extracted from blood and analyzed with the [employer] Myeloid sequencing assayTM. Amplicon-based library preparation, template preparation and chip-loading utilize the [place], and sequencing is performed on the [employer] Interaction [employer] and Technology System. Reads from JAK2 exons 12-15 are analyzed for single nucleotide variants, deletions, and insertions. Base Calling and alignment is performed on the SOLEM Electronique Suite SOLEM Electronique Suite 5.12.0.Variant calling is performed on the Vamo Chapter Relations Administrator version 5.14. LIMITATIONS AND DISCLAIMERS: ??The analytic [...] Genomics and Advanced Technology (CGAT) Laboratory at [facility]. It has not been cleared or approved by the FDA. The laboratory is regulated under CLIA as qualified to perform high-complexity testing. This test is used for clinical purposes. It should not be regarded as investigational or for research. [facility] Comment: [VERIFIED DATE]02.04.23 Verified By:Neptali Calixto, Mohan Franks Molecular Pathologist (Electronic Signature) Blood 01/24/2023 10:4 2 AM EDT 01/24/2023 1:39 PM EDT Narrative Resulting Agency Comment Spec In Lab Veena HURD [facility] [place] [address] * Erythropoietin Level (01/24/2023 10:42 AM EDT) Erythropoietin (JANUARY) 11.8 2.6 - 18.5 mIU/mL [facility] Comment: Test Performed by: [facility] [address] [place] [address] Load Test Mechanic: Adam Gifford M.D. Ph.D.; CLIA# [id number] Blood 01/24/2023 10:4 2 AM EDT 01/24/2023 12:49 PM EDT Narrative Resulting Agency Comment Spec In Lab Veena Cunningham MD LAB SEND OUT ORD ERABLES [facility] [place] [address] * (ABNORMAL) Comprehensive metabolic panel (non-fasting) (01/24/2023 10:42 AM EDT) Glucose 106 65 - 199 mg/dL [facility] Comment:Diabetes: >=200 mg/d L plus symptoms Blood Urea Nitrogen 7(L) 10 - 20 mg/dL [facility] Creatinine 0.92 0.80 - 1.50 mg/dL [facility] Sodium 140 135 - 145 mmol/L [facility] Potassium 4.5 3.5 - 5.0 mmol/L [facility] Comment: Please note: ??Patients with WBC >100,000 may have falsely elevated Potassium levels. ??For accurate Potassium quantification in these patients send serum separator tube (gold top) for subsequent determinations. ??Contact the Clinical Chemistry Laboratory if there are any questions. Chloride 103 98 - 107 mmol/L [facility] Carbon Dioxide 28 22 - 31 mmol/L [facility] Anion Gap 9 5 - 15 mmol/L [facility] Calcium 9.2 8.5 - 10.5 mg/dL [facility] Protein, Total 7.2 6.1 - 8.0 g/dL [facility] Albumin 4.1 3.2 - 5.2 g/dL [facility] Aspartate Aminotransferase 18 0 - 39 unit/L [facility] Alanine Aminotransferase 21 0 - 55 unit/L [facility] Alkaline Phosphatase 81 40 - 130 unit/L [facility] Bilirubin, Total 0.4 0.2 - 1.3 mg/dL [facility] Est Glomerular Filtration Rate 103 >=60 mL/min/1. 73 m?? [facility] Comment: This patient's estimated GFR [...] Maxwell MD CHEMISTRY ORDERABLES Performing Organization Address City/[facility]/ZIP Co de Phone Number [facility] [place] [address] * Phosphorus (01/24/2023 10:42 AM EDT) Phosphorus 3.1 2.5 - 4.5 mg/dL [facility] Blood 01/24/2023 10:4 2 AM EDT 01/24/2023 10:51 AM EDT Narrative Resulting Agency Comment Spec In Lab Faye Maxwell MD CHEMISTRY ORDERABLES [facility] [place] [address] * Uric acid (01/24/2023 10:42 AM EDT) Uric Acid 5.7 3.5 - 8.5 mg/dL [facility] Blood 01/24/2023 10:4 2 AM EDT 01/24/2023 10:51 AM EDT Narrative Resulting Agency Comment Spec In Lab Faye Maxwell MD CHEMISTRY ORDERABLES Performing Organization Address City/[facility]/ZIP Co de Phone Number [facility] [place] [address] * PTH (01/24/2023 10:42 AM EDT) Parathyroid Hormone 60 15 - 65 pg/mL [facility] Blood 01/24/2023 10:4 2 AM EDT 01/24/2023 10:51 AM EDT Narrative Resulting Agency Comment Spec In Lab Faye Maxwell MD CHEMISTRY ORDERABLES Performing Organization Address [facility] Co de Phone Number [facility] [place] [address] documented in this encounter Visit Diagnoses Diagnosis [...] duodenum documented in this encounter Care Teams Blending Kettle Tender Relationship Specialty Start Date End Date Olga Hoffman APRN [address] [place] [address] PCP - General Family Medicine 10/30/22 documented as of this encounter
--- OUTSIDE RECORDS SUMMARY | 2024-05-27 18:02 | XMS_ITS | Encounter Summary ---
Author Organization [facility] [place] [address] Care Team Providers Care Soft Sugar Cutter Name Role Phone DaltonAbigailOlgaevy Bell APRN Primary Care Provider [phone] Encounter Details Date Type Department Care Team (Late st Contact Info) Description 02/26/2024 2:35 PM EDT Ancillary Procedure [place] [address] Rudi Hernandez MD [facility] [place] [address] Social History Tobacco Use Types Packs/Day Years [...] AM EDT Office Visit Hematology/Oncology at [address] [phone] Rodriguez Fowler MD [facility] [place] [place] [address] Sherry Cedillo APRN [address] [place] [address] DR HEMATOLOGY AND ONCOLOGY [place], [place] [id number] 05/28/2024 8:30 AM EDT Infusion Hematology Oncology at [address] [phone] 05/28/2024 9:30 AM EDT Clinical Support Hematology/Oncology at [address] [phone] [facility] DR HEMATOLOGY [place] [address] documented as of this encounter Procedures Procedure Name Priority Date/Time Associated Diagnosis Comments FILM LIBRARY STORAGE ONLY CT ABDOMEN AND PELVIS Routine 02/26/2024 2:34 PM EDT documented in this encounter Results * Film Library- Storage Only CT Abdomen & Pelvis (02/26/2024 2:34 PM EDT) Narrative [facility] - 02/26/2024 2:34 PM EDT This exam is auto-finalizing. It's purpose is for storage only. Rudi Hernandez MD IMG FILM LIBRARY ORD ERABLES [place] documented in this encounter Visit Diagnoses Not on filedocumented in this encounter Care Teams Soft Sugar Cutter Relationship Specialty Start Date End Date Olga Hoffman APRN [address] [place] [address] PCP - General Family Medicine 10/30/22 documented as of this encounter
--- OUTSIDE RECORDS SUMMARY | 2024-05-27 18:02 | XMS_ITS | Encounter Summary ---
Author Organization [facility] [place] [address] Care Team Providers Care Stamp Classifier Name Role Phone Olga Hoffman APRN Primary Care Provider [phone] Reason for Visit * Reason Comments Advice Only * Consultation (Routine) - Closed Specialty Diagnoses / Procedures Referred By Janak holland Referred To Contact Hematology and Oncology Diagnoses Polycythemia Olga Hoffman APRN [address] [place] [address] [facility] [address] [place] [address] Referral ID Status Reason Start Date Expiration Date V isits Requested Visits Authorized [id number] Closed Consult, Test & Treat PCP Updated and/or Approved 11/20/2022 11/20/2023 6 6 Encounter Details Date Type Department Care Team (Late st Contact Info) Description 01/24/2023 10:00 AM EDT Office Visit Hematology [place] [address] Veena Cunningham MD [facility] DR HEMATOLOGY [place] [address] Erythrocytosis; Microcytosis Social History Tobacco [...] in a alf (including now)? No 01/23/2023 Sex and Gender [...] Biopsy Liver Percutaneous 01/07/2023 Juan Wright MD [facility] INTERVENTIONL RAD MEDICATIONS Current Outpatient Medications Medication [...] the Last Year: No ?? Lives in [place] (1hr 15mts from [facility]) ?? 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 Smoking: No No family history [...] AM EDT Office Visit Hematology/Oncology at [address] [phone] Rodriguez Fowler MD [facility] [place] [address] Sherry Cedillo [address] HEMATOLOGY AND ONCOLOGY [place], [place] [id number] 05/28/2024 8:30 AM EDT Infusion Hematology Oncology at [address] [phone] 05/28/2024 9:30 AM EDT Clinical Support Hematology/Oncology at [address] [phone] [facility] DR HEMATOLOGY [place] [address] Scheduled Orders Name Type Priority Associated Diagnoses Orde r Schedule CBC (with Diff) Lab Routine Erythrocytosis Microcytosis Expected: 01/24/2023, Expires: 02/24/2023 documented as of this encounter Results * Iron and TIBC (01/24/2023 10:42 AM EDT) Iron 67 45 - 160 mcg/dL [facility] TIBC 304 250 - 450 mcg/dL [facility] Iron Saturation 22 20 - 50 % [facility] Blood 01/24/2023 10:4 2 AM EDT 01/24/2023 10:51 AM EDT Narrative Resulting Agency Comment Spec In Lab Veena Cunningham MD CHEMISTRY ORDERA BLES Performing Organization Address City/[facility]/ZIP Co de Phone Number [facility] [place] [address] * (ABNORMAL) Reticulocyte Count (01/24/2023 10:42 AM EDT) Reticulocyte % 1.0 0.7 - 2.6 % [facility] Retic Abs # 0.060 0.030 - 0.120 x10(6)/mcL [facility] Immature Retic% 5.7 0.0 - 15.6 % [facility] Reticulated Hgb 27.7(L) 31.3 - 40.2 pg [facility] Blood 01/24/2023 10:4 2 AM EDT 01/24/2023 10:51 AM EDT Narrative Resulting Agency Comment Spec In Lab Veena Cunningham MD HEMATOLOGY ORDER DEDRA Performing Organization Address [facility]/ZIP Co de Phone Number [facility] [place] [address] * Ferritin (01/24/2023 10:42 AM EDT) Ferritin 113 30 - 400 ng/mL [facility] Comment: Pediatric reference ranges not verified at [facility], interpret with caution. Reference ranges for females greater than 50 years of age approach values for men, i.e., 30-400 ng/mL. Blood 01/24/2023 10:4 2 AM EDT 01/24/2023 10:51 AM EDT Narrative Resulting Agency Comment Spec In Lab Veena Cunningham MD CHEMISTRY MEHUL HURD [facility] [place] [address] * JAK2 V617F, Exon12, and Other Non-V617F Mut (01/24/2023 10:42 AM EDT) Somatic JAK2 Result Negative [facility] Somatic JAK2 Interp JAK2 Somatic [...] extracted from blood and analyzed with the Venga Myeloid sequencing assayTM. Amplicon-based library preparation, template preparation and chip-loading utilize the Fantastic.cl TM, and sequencing is performed on the Medtrics Lab S5 System. Reads from JAK2 exons 12-15 are analyzed for single nucleotide variants, deletions, and insertions. Base Calling and alignment is performed on the TorrKindred Prints Suite [employer]s Suite 5.12.0.Variant calling is performed on the Ion [employer] Brand Ambassador version 5.14. LIMITATIONS AND DISCLAIMERS: ??The analytic [...] its performance characteristics determined by the Clinical [facility] [employer] Laboratory at [facility]. It has not been cleared or approved by the FDA. The laboratory is regulated under CLIA as qualified to perform high-complexity testing. This test is used for clinical purposes. It should not be regarded as investigational or for research. [facility] Comment: [VERIFIED DATE]02.04.23 Verified By:Neptali Calixto, Mohan Franks Molecular Pathologist (Electronic Signature) Blood 01/24/2023 10:4 2 AM EDT 01/24/2023 1:39 PM EDT Narrative Resulting Agency Comment Spec In Lab Veena Cunningham MD MOLECULAR ORDERA BLES Performing Organization Address City/[facility]/ZIP Co de Phone Number [facility] [place] [address] * Erythropoietin Level (01/24/2023 10:42 AM EDT) Erythropoietin (JANUARY) 11.8 2.6 - 18.5 mIU/mL [facility] Comment: Test Performed by: [facility] [address] [place] [address] Director Sales And Marketing: Adam Gifford M.D. Ph.D.; CLIA# [id number] Blood 01/24/2023 10:4 2 AM EDT 01/24/2023 12:49 PM EDT Narrative Resulting Agency Comment Spec In Lab Veena Cunningham MD LAB SEND OUT ORD ERABLES Performing Organization Address City/[facility]/ZIP Co de Phone Number [facility] [place] [address] documented in this encounter Visit Diagnoses Diagnosis Erythrocytosis Polycythemia, secondary Microcytosis Other abnormality of red blood cells Duodenal adenocarcinoma Malignant neoplasm of duodenum documented in this encounter Care Teams Stamp Classifier Relationship Specialty Start Date End Date Olga Hoffman APRN [address] [place] [address] PCP - General Family Medicine 10/30/22 documented as of this encounter
--- OUTSIDE RECORDS SUMMARY | 2024-05-27 18:02 | XMS_ITS | Encounter Summary ---
Author Organization [facility] Address [facility] [place] [address] Care Team Providers Care Telephone Repairer Name Role Phone Olga Hoffman APRN Primary Care Provider [phone] Encounter Details Date Type Department Care Team [...] 8:00 AM EDT Office Visit Hematology/Oncology at [address] [phone] Rodriguez Fowler MD [facility] [place] [place] [address] Sherry Cedillo APRN [address] [place] [address] DR HEMATOLOGY AND ONCOLOGY [place], [place] [id number] 05/28/2024 8:30 AM EDT Infusion Hematology Oncology at [address] [phone] 05/28/2024 9:30 AM EDT Clinical Support Hematology/Oncology at [address] [phone] [facility] DR HEMATOLOGY [place] [address] documented as of this encounter Visit Diagnoses Not on filedocumented in this encounter Care Teams Telephone Repairer Relationship Specialty Start Date End Date Olga Hoffman APRN [address] [place] [address] PCP - General Family Medicine 10/30/22 documented as of this encounter
--- OUTSIDE RECORDS SUMMARY | 2024-05-27 18:02 | XMS_ITS | Encounter Summary ---
Author Organization [facility] [place] [address] Care Team Providers Care Network Operations Project Manager Name Role Phone Olga Hoffman APRN Primary Care Provider [phone] Reason for Referral * Consultation (Routine) - Closed Specialty Diagnoses / Procedures Referred By Janak t Referred To Contact Gastroenterology Diagnoses CHAN (nonalcoholic steatohepatitis) Eugenia Barrera APRN [facility] [place] [address] [facility] [place] [address] Referral ID Status Reason Start Date Expiration Date V isits Requested Visits Authorized [id number] Closed Continuity of Care 01/24/2023 01/24/2024 1 1 Encounter Details Date Type Department Care Team (Late st Contact Info) Description 01/24/2023 9:00 AM EDT Office Visit [place] [address] Eugenia Barrera APRN [facility] [place] [address] CHAN (nonalcoholic steatohepatitis) Social History Tobacco Use [...] in a mcfp (including now)? No 01/23/2023 Sex and Gender [...] lbs. Just got a puppy dog - new zealander kiersten, named Darlene, the LP Amina word for Fritz, taking her out onwalks [...] Allergen Reactions ??? Penicillins Rash SOCIAL HISTORY [facility], [facility] [facility] [place]. 3 kids age 14, 12, 11. 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 Alcohol: on holidays will have 1-2 drinks. [...] at that time Plan: - Refer to cheese wrapper to help with meal planning for CHAN, strategies for eating. - Follow up in 6 months with blood work. Eugenia Barrera APRN Section of Gastroenterology [place] [address] Copy: Olga Hoffman APRN [address] / [facility] [address] Time spent reviewing records prior to this [...] AM EDT Office Visit Hematology/Oncology at [address] [phone] Rodriguez Fowler MD [facility] [place] [address] Sherry Cedillo APRN [address] [place] [address] DR HEMATOLOGY AND ONCOLOGY [place], [place] [id number] 05/28/2024 8:30 AM EDT Infusion Hematology Oncology at [address] [phone] 05/28/2024 9:30 AM EDT Clinical Support Hematology/Oncology at [address] [phone] [facility] DR [place] [address] Scheduled Orders Name Type Priority Associated Diagnoses [...] duodenum documented in this encounter Care Teams Network Operations Project Manager Relationship Specialty Start Date End Date Olga Hoffman APRN [address] [place] [address] PCP - General Family Medicine 10/30/22 documented as of this encounter
--- OUTSIDE RECORDS SUMMARY | 2024-05-27 18:02 | XMS_ITS | Encounter Summary ---
[place] [address] Care Team Providers Care Fashion Stylist Name Role Phone Olga Hoffman APRN Primary Care Provider [phone] Reason for Referral * Consultation (Routine) - Canceled Specialty Diagnoses / Procedures Referred By Janak holland Referred To Contact Vascular Surgery Diagnoses Cramp and spasm Olga Hoffman APRN [address] [place] [address] [facility] [address] [place] [address] Referral ID Status Reason Start Date Expiration Date V isits Requested Visits Authorized [id number] Canceled Consult, Test & Treat 02/24/2024 02/23/2025 1 1 Encounter Details Date Type Department Care Team (Late st Contact Info) Description 02/24/2024 Transcribe Orders eDH Incoming Referrals [phone] Olga Hoffman APRN [address] [place] [address] Cramp and spasm Social History [...] AM EDT Office Visit Hematology/Oncology at [address] [phone] Rodriguez Fowler MD [facility] [place] [address] Sherry Cedillo APRN [address] [place] [address] DR HEMATOLOGY AND ONCOLOGY [place], [place] [id number] 05/28/2024 8:30 AM EDT Infusion Hematology Oncology at [address] [phone] 05/28/2024 9:30 AM EDT Clinical Support Hematology/Oncology at [address] [phone] Leah Rose, RD [facility] DR [place] [address] Scheduled Referrals Name Type Priority Associated Diagnoses Orde r Schedule Referral to Vascular Surgery Outpatient Referral Routine Cramp and spasm Ordered: 02/24/2024 documented as of this encounter Visit Diagnoses Diagnosis Cramp and spasm Duodenal adenocarcinoma Malignant neoplasm of duodenum documented in this encounter Care Teams Fashion Stylist Relationship Specialty Start Date End Date Olga Hoffman APRN [address] [place] [address] PCP - General Family Medicine 10/30/22 documented as of this encounter
--- OUTSIDE RECORDS SUMMARY | 2024-05-27 18:03 | XMS_ITS | Encounter Summary ---
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 ?? Obesity. ?? Hypertension well controlled ?? DMII insulin-dependent. Variable control - states improved recently.. No evidence diabetic nephropathy. Neuropathy feet and hands without ulceration, Biltaeral cataracts, no retinopathy. identified complications ?? Obstructive sleep apnea: Uses CPAP with improvement tin daytime alertness and mood ?? 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 3 children. Father . Mother Habits: Non [...] AM EDT Office Visit Hematology/Oncology at [address] [phone] Rodriguez Fowler MD [facility] DR [place] [address] Sherry Cedillo APRN [address] [place] [address] DR HEMATOLOGY AND ONCOLOGY [place], [place] [id number] 05/28/2024 8:30 AM EDT Infusion Hematology Oncology at [address] [phone] 05/28/2024 9:30 AM EDT Clinical Support Hematology/Oncology at [address] [phone] [facility] [place] [address] documented as of this encounter Procedures Procedure Name Priority Date/Time Associated Diagnosis Comments HC CREATININE - NON BLOOD Routine 12/12/2021 2:30 PM EDT 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 362 Albumin, Urine 108.1 mg/L [facility] Creatinine, Urine 64 mg/dL [facility] Urine 12/12/2021 2:30 PM EDT 12/12/2021 6:31 PM EDT Narrative Resulting Agency Comment Spec In Lab Faye Maxwell MD URINE ORDERABLES [facility] [place] [address] * Phosphorus (12/12/2021 2:07 PM EDT) Phosphorus 3.0 2.5 - 4.5 mg/dL [facility] Blood 12/12/2021 2:07 PM EDT 12/12/2021 2:14 PM EDT Narrative Resulting Agency Comment Spec In Lab Faye Maxwell MD CHEMISTRY ORDERABLES Performing Organization Address City/[facility]/ZIP Co de Phone Number [facility] [place] [address] * Uric acid (12/12/2021 2:07 PM EDT) Uric Acid 5.1 3.5 - 8.5 mg/dL [facility] Blood 12/12/2021 2:07 PM EDT 12/12/2021 2:14 PM EDT Narrative Resulting Agency Comment Spec In Lab Faye Maxwell MD CHEMISTRY ORDERABLES Performing Organization Address City/[facility]/ZIP Co de Phone Number [facility] [place] [address] * Albumin Level (12/12/2021 2:07 PM EDT) Albumin 4.1 3.2 - 5.2 g/dL [facility] Blood 12/12/2021 2:07 PM EDT 12/12/2021 2:14 PM EDT Narrative Resulting Agency Comment Spec In Lab Faye Maxwell MD CHEMISTRY ORDERABLES Performing Organization Address City/[facility]/ZIP Co de Phone Number [facility] [place] [address] * (ABNORMAL) PTH (12/12/2021 2:07 PM EDT) Parathyroid Hormone 69(H) 15 - 65 pg/mL [facility] Blood 12/12/2021 2:07 PM EDT 12/12/2021 2:14 PM EDT Narrative Resulting Agency Comment Spec In Lab Faye Maxwell MD CHEMISTRY ORDERABLES [facility] [place] [address] * Basic Metabolic Panel (non-fasting) (12/12/2021 2:07 PM EDT) Glucose 140 65 - 199 mg/dL [facility] Comment:Diabetes: >=200 mg/d L plus symptoms Blood Urea Nitrogen 10 10 - 20 mg/dL [facility] Creatinine 0.98 0.80 - 1.50 mg/dL [facility] Sodium 139 135 - 145 mmol/L [facility] Potassium 4.1 3.5 - 5.0 mmol/L [facility] Comment: Please note: ??Patients with WBC >100,000 may have falsely elevated Potassium levels. ??For accurate Potassium quantification in these patients send serum separator tube (gold top) for subsequent determinations. ??Contact the Clinical Chemistry Laboratory if there are any questions. Chloride 99 98 - 107 mmol/L [facility] Carbon Dioxide 26 22 - 31 mmol/L [facility] Anion Gap 14 5 - 15 mmol/L [facility] Calcium 9.1 8.5 - 10.5 mg/dL [facility] Est Glomerular Filtration Rate 92 >=60 mL/min/1. 73 m?? [facility] Comment: This patient? 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
--- OUTSIDE RECORDS SUMMARY | 2024-05-27 18:03 | XMS_ITS | Encounter Summary ---
Author Organization [facility] [place] [address] Care Team Providers Care Highway Truck Driver Name Role Phone Juan Elkehubert Liu APRN Primary Care Provider Encounter Details Date Type Department Care Team (Late st Contact Info) Description 02/12/2011 Abstract Nephrology [place] [phone] Charline Garcia, RN Social History Tobacco Use [...] AM EDT Office Visit Hematology/Oncology at [address] [phone] Rodriguez Fowler MD [facility] [place] [address] Sherry Cedillo APRN [address] [place] [address] DR HEMATOLOGY AND ONCOLOGY [place], [place] [phone] 05/28/2024 8:30 AM EDT Infusion Hematology Oncology at [address] [phone] 05/28/2024 9:30 AM EDT Clinical Support Hematology/Oncology at [address] [phone] Leah Rose, [facility] DR HEMATOLOGY [place] [address] documented as of this encounter Visit Diagnoses Not on filedocumented in this encounter Care Teams Highway Truck Driver Relationship Specialty Start Date End Date Elke Martinez APRN [address] [place] [address] PCP - General 08/07/10 03/03/16 documented as of this encounter
--- OUTSIDE RECORDS SUMMARY | 2024-05-27 18:03 | XMS_ITS | Encounter Summary ---
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 He underwent biopsy in 2007 at [facility] which showedresolving membranous GN. Currently in remission. [...] NSAIDs Reports his father, who lives in [place], has proteinuria and edema. Father is not [...] AM EDT Office Visit Hematology/Oncology at [address] [phone] Rodriguez Fowler MD [facility] [place] [address] Sherry Cedillo APRN [address] [place] [address] DR HEMATOLOGY [place] [address] 05/28/2024 8:30 AM EDT Infusion Hematology Oncology at [address] [phone] 05/28/2024 9:30 AM EDT Clinical Support Hematology/Oncology at [address] [phone] [facility] DR [place] [address] documented as of this encounter Results * (ABNORMAL) Basic Metabolic Panel (non-fasting) (08/16/2016 2:14 PM EST) Glucose 183 65 - 199 mg/dL [facility] Comment:Diabetes: >=200 mg/d L plus symptoms Blood Urea Nitrogen 11 10 - 20 mg/dL [facility] Creatinine 1.21 0.80 - 1.50 mg/dL [facility] Comment: Please note that the pediatric reference intervals supplied above were not validated at [facility]. Results from pediatric patients should be interpreted in conjunction to the patient's age, height and muscle mass. Sodium 139 135 - 145 mmol/L [facility] Potassium 4.3 3.5 - 5.0 mmol/L [facility] Comment: Please note: ??Patients with WBC >100,000 may have falsely elevated Potassium levels. ??For accurate Potassium quantification in these patients send serum separator tube (gold top) for subsequent determinations. ??Contact the Clinical Chemistry Laboratory if there are any questions. Chloride 97(L) 98 - 107 mmol/L [facility] Carbon Dioxide 30 22 - 31 mmol/L [facility] Anion Gap 12 5 - 15 mmol/L [facility] Calcium 9.0 8.5 - 10.5 mg/dL [facility] Est Glomerular Filtration Rate >60 >=60 [facility] Comment: This estimated GFR (eGFR) [...] the following links into your internet browser. [email or web address] Blood specimen (specimen) 08/16/2016 2:14 PM EST 08/16/2016 2:19 PM EST Narrative Resulting Agency Comment Spec In Lab Faye Maxwell MD CHEMISTRY ORDERABLES Performing Organization Address City/State/[facility] Co de Phone Number [facility] 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
--- OUTSIDE RECORDS SUMMARY | 2024-05-27 18:03 | XMS_ITS | Encounter Summary ---
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 year old woman with a diagnosis of membranous nephropathy presenting with hematuria and NS in 2006 and underwent spontaneous remission without imunotherapy. [place] [facility] [place]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 Additional PMH: Morbid obesity, depression, anxiety Today c/o sudden 15lb weight gain over past month.. Some ankle swelling. Feels ired, but not dyspneic. No orthopnea, No swelling hands or fACE, NO HEMATuria, no rash, joint pain or jaundice. No new meds Reports his father, who lives in [place], has recently developed proteinuria and edema. Father [...] AM EDT Office Visit Hematology/Oncology at [address] [phone] Rodriguez Fowler MD [facility] [place] [address] Sherry Cedillo [address] HEMATOLOGY AND ONCOLOGY [place], [place] [phone] 05/28/2024 8:30 AM EDT Infusion Hematology Oncology at [address] [phone] 05/28/2024 9:30 AM EDT Clinical Support Hematology/Oncology at [address] [phone] [facility] HEMATOLOGY [place] [address] documented as of this encounter Procedures Procedure [...] In Lab Faye Maxwell MD URINE ORDERABLES CERDENA JENENNIUM * DIFFERENTIAL, AUTOMATED (05/27/2012 1:08 PM EDT) [...] EDT Faye Maxwell MD HEMATOLOGY ORDERABLE S [facility] JENENNIUM * (ABNORMAL) CBC (with Diff) (05/27/2012 1:08 [...] MD HEMATOLOGY ORDERABLE S Performing Organization Address [facility] de Phone Number CERNER MILLENNIUM * Albumin (05/27/2012 1:08 PM EDT) Albumin 3.9 3.2 - 5.2 gm/dL CERNER MILLENNIUM Blood specimen (specimen) 05/27/2012 1:08 PM EDT 05/27/2012 1:16 PM EDT Narrative Resulting Agency Comment Spec In Lab Faye Maxwell MD CHEMISTRY ORDERABLES Performing Organization Address [facility] de Phone Number CERNER JENENNIUM * Basic metabolic panel (05/27/2012 1:08 PM EDT) Glucose 94 60 - 199 mg/dL CERNER MILLENNIUM Comment:Diabetes: >=200 mg/d L plus symptoms Blood Urea Nitrogen 11 10 - 20 mg/dL CERNER MILLENNIUM Creatinine 0.97 0.80 - 1.50 mg/dL CERNER MILLENNIUM Comment: Please note that the pediatric reference intervals supplied above were not validated [place] [facility]. 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
--- OUTSIDE RECORDS SUMMARY | 2024-05-27 18:03 | XMS_ITS | Encounter Summary ---
Author Organization [facility] [place] [address] Care Team Providers Care Oxygen Equipment Aide Name Role Phone MartinezElke Alexa RUST Primary Care Provider [phone] Reason for Visit * Reason Onset Date Comments Other 02/19/2011 inform pt of uri ne protein result Encounter Details Date Type Department Care Team (Late st Contact Info) Description 02/19/2011 Telephone [place] [address] Faye Maxwell MD [facility] [place] [address] Other (inform pt of urine protein result) [...] AM EDT Office Visit Hematology/Oncology at [address] [phone] Rodriguez Fowler MD [facility] [place] [address] Sherry Cedillo APRN [address] [place] [address] DR HEMATOLOGY AND ONCOLOGY [place], [place] [phone] 05/28/2024 8:30 AM EDT Infusion Hematology Oncology at [address] [phone] 05/28/2024 9:30 AM EDT Clinical Support Hematology/Oncology at [address] [phone] [facility] DR [place] [address] documented as of this encounter Visit Diagnoses Not on filedocumented in this encounter Care Teams Oxygen Equipment Aide Relationship Specialty Start Date End Date Elke Martinez APRN [address] [place] [address] PCP - General 08/07/10 03/03/16 documented as of this encounter
--- OUTSIDE RECORDS SUMMARY | 2024-05-27 18:03 | XMS_ITS | Encounter Summary ---
Author Organization [facility] [place] [address] Care Team Providers Care Supervisor Boat Outfitting Name Role Phone Elke Martinez APRN Primary Care Provider [phone] Encounter Details Date Type Department Care Team (Latest Contact Info) Description 07/13/2015 3:00 PM EDT Laboratory Appointment Lab [address] [place] [phone] CKD (chronic kidney disease) stage 3, GFR [...] AM EDT Office Visit Hematology/Oncology at [address] [phone] Rodriguez Fowler MD [facility] [place] [address] Sherry Cedillo APRN [address] [place] [address] DR [place] [address] 05/28/2024 8:30 AM EDT Infusion Hematology Oncology at [address] [phone] 05/28/2024 9:30 AM EDT Clinical Support Hematology/Oncology at [address] [phone] Leah Rose, ARASH [facility] DR HEMATOLOGY [place] [address] documented as of this encounter Procedures Procedure [...] Lab Faye Maxwell MD HEMATOLOGY ORDERABLE S CERNER MILLENNIUM * (ABNORMAL) Hemogram (07/13/2015 3:13 PM EDT) Pathologist [facility] White Blood Cell 11.4(H) 4.0 - 10.0 [...] Maxwell MD HEMATOLOGY ORDERABLE S CRISTO MIGUEL * Basic Metabolic Panel (non-fasting) (07/13/2015 3:13 PM EDT) Pathologist [facility] Glucose 107 65 - 199 mg/dL CERNER MILLENNIUM Comment:Diabetes: >=200 mg/d L plus symptoms Blood Urea Nitrogen 12 10 - 20 mg/dL CERNER MILLENNIUM Creatinine 0.99 0.80 - 1.50 mg/dL CERNER MILLENNIUM Comment: Please note that the pediatric reference intervals supplied above were not validated at [facility]. Results from pediatric patients should be interpreted [...] the following links into your internet browser. [email or web address] Blood specimen (specimen) 07/13/2015 3:13 PM EDT [...] sleep apnea Obstructive sleep apnea (adult) (pediatric) Duodenal adenocarcinoma Malignant neoplasm of duodenum documented in this encounter Care Teams Supervisor Boat Outfitting Relationship Specialty Start Date End Date Elke Martinez APRN [address] [place] [address] PCP - General 08/07/10 03/03/16 documented as of this encounter
--- OUTSIDE RECORDS SUMMARY | 2024-05-27 18:03 | XMS_ITS | Encounter Summary ---
Author Organization [facility] Address [facility] [place] [address] Care Team Providers Care Sign Language Interpreter Name Role Phone Olga Hoffman YOCASTA Primary Care Provider [phone] Encounter Details Date Type Department Care Team [...] AM EDT Office Visit Hematology/Oncology at [address] [phone] Rodriguez Fowler MD [facility] [place] [address] Sherry Cedillo [employer] [address] [place] [address] DR HEMATOLOGY AND ONCOLOGY [place], [place] [phone] 05/28/2024 8:30 AM EDT Infusion Hematology Oncology at [address] [phone] 05/28/2024 9:30 AM EDT Clinical Support Hematology/Oncology at [address] [phone] [address] [facility] DR [place] [address] documented as of this encounter Visit Diagnoses Not on filedocumented in this encounter Care Teams Sign Language Interpreter Relationship Specialty Start Date End Date Olga Hoffman APRN [address] [place] [address] PCP - General Family Medicine 10/30/22 documented as of this encounter
--- OUTSIDE RECORDS SUMMARY | 2024-05-27 18:03 | XMS_ITS | Encounter Summary ---
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 [...] Department Care Team (Late Contact Info) Description 05/28/2024 8:00 AM EDT Office Visit Hematology/Oncology at [address] [phone] Rodriguez Fowler MD [facility] [place] [address] Sherry Cedillo APRN [address] [place] [address] DR HEMATOLOGY AND ONCOLOGY [place], [place] [address] 05/28/2024 8:30 AM EDT Infusion Hematology Oncology at [address] [phone] 05/28/2024 9:30 AM EDT Clinical Support Hematology/Oncology at [address] [phone] Leah Rose, ARASH [facility] [place] [address] documented as of this encounter Visit Diagnoses Diagnosis Proteinuria Obesity Obesity, unspecified 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
--- OUTSIDE RECORDS SUMMARY | 2024-05-27 18:03 | XMS_ITS | Encounter Summary ---
Author Organization [facility] [place] [address] Care Team Providers Care Assistant Store Manager Name Role Phone Dariana Méndez MD Primary Care Provider [phone] Encounter Details Date Type Department Care Team (Latest Contact Info) Description 12/22/2018 9:00 AM EDT Laboratory Appointment Lab [address] [place] [address] Proteinuria, unspecified type; Obesity, unspecified classification, unspecified [...] 8:00 AM EDT Office Visit Hematology/Oncology at [address] [phone] Rodriguez Fowler MD [facility] [place] [address] Sherry Cedillo, YOCASTA [address] [place] [address] DR [place] [address] 05/28/2024 8:30 AM EDT Infusion Hematology Oncology at [address] [phone] 05/28/2024 9:30 AM EDT Clinical Support Hematology/Oncology at [address] [phone] [facility] DR HEMATOLOGY [place] [address] documented as of this encounter Procedures Procedure [...] * Differential, Automated (12/22/2018 9:49 AM EDT) Neutrophil % 71.7 % [facility] Neutrophil Absolute 5.01 1.70 - 6.10 x10(3)/[facility] LABOR[facility] Lymph % 21.5 % [facility] Lymphocytes Abs 1.5 0.9 - 3.2 x10(3)/[facility] Monocyte % 4.7 % [facility] Monocyte Abs 0.3 0.3 - 0.9 x10(3)/[facility] Eos % 1.4 % [facility] Eosinophils Abs 0.1 0.0 - 0.4 x10(3)/[facility]OR[facility] Basophil % 0.6 % [facility] Baso Absolute 0.0 0.0 - 0.1 x10(3)/[facility]OR[facility] Immature Gran % 0.10 % [facility] Comment: Immature granulocytes(IG's)percentage and absolute count will include metamyelocytes, myelocytes, and promyelocytes. Blood smears from CBCs yielding IG's will be scanned manually for concordance. If this scan disagrees with the automated IG or if promyelocytes are noted, a manual differential will be performed. Immature Gran Absolute 0.01 0.00 - 0.04 x10(3)/[facility] LABORATORY Blood specimen (specimen) 12/22/2018 9:49 AM EDT 12/22/2018 10:01 AM EDT Narrative Resulting Agency Comment Spec In Lab Faye Maxwell MD HEMATOLOGY ORDERABLE S [facility] [place] [address] * (ABNORMAL) Hemogram (12/22/2018 9:49 AM EDT) White Blood Cell 7.0 4.0 - 9.5 x10(3)/[facility] LABORATORY Red Blood Cell 6.09(H) 4.58 - 5.54 x10(6)/[facility] LABORATORY Hemoglobin 15.2 13.7 - 16.5 gm/dL [facility] Hematocrit 47.0 40.5 - 48.5 % [facility] Mean Cell Volume 77.2(L) 82.9 - 93.1 fL [facility] Mean Cell Hemoglobin 25.0(L) 27.5 - 32.1 pg [facility] Mean Cell Hemoglobin Concentration 32.3 32.0 - 35.7 gm/dL [facility] Platelet 163 145 - 357 x10(3)/mc L [facility] RDW Standard Deviation 40.2 36.0 - 45.0 fL [facility] RDW coefficient of variation 14.7(H) 11.4 - 13.8 % [facility] Mean Platelet Volume 11.3 7.6 - 12.9 fL [facility] NRBC% auto 0.0 % [facility] NRBC Absolute 0.000 0.000 - 0.000 x10(3)/mc L [facility] Blood specimen (specimen) 12/22/2018 9:49 AM EDT 12/22/2018 10:01 AM EDT Narrative Resulting Agency Comment Spec In Lab Faye Maxwell MD HEMATOLOGY ORDERABLE S [facility] [place] [address] * (ABNORMAL) Basic Metabolic Panel (non-fasting) (12/22/2018 9:49 AM EDT) Glucose 409(H) 65 - 199 mg/dL [facility] Comment:Diabetes: >=200 mg/d L plus symptoms Blood Urea Nitrogen 8(L) 10 - 20 mg/dL [facility] Creatinine 0.85 0.80 - 1.50 mg/dL [facility] Sodium 134(L) 135 - 145 mmol/L [facility] Potassium 4.3 3.5 - 5.0 mmol/L [facility] Comment: Please note: ??Patients with WBC >100,000 may have falsely elevated Potassium levels. ??For accurate Potassium quantification in these patients send serum separator tube (gold top) for subsequent determinations. ??Contact the Clinical Chemistry Laboratory if there are any questions. Chloride 101 98 - 107 mmol/L [facility] Carbon Dioxide 22 22 - 31 mmol/L [facility] Anion Gap 11 5 - 15 mmol/L [facility] Calcium 8.9 8.5 - 10.5 mg/dL [facility] Est Glomerular Filtration Rate 106 >=60 mL/min/1. 73 m?? [facility] Comment: The eGFR was calculated using the CKD-EPI equation. As with all creatinine based estimates of kidney function, eGFR values calculated with the CKD-EPI equation are not accurate in patients with acute kidney failure, extremes of body mass or the acutely ill. [email or web address] DUNCANnkf eGFR 123 >=60 mL/min/1. 73 m?? [facility] Comment: The eGFR was calculated using the CKD-EPI equation. As with all creatinine based estimates of kidney function, eGFR values calculated with the CKD-EPI equation are not accurate in patients with acute kidney failure, extremes of body mass or the acutely ill. [email or web address] DUNCANnkf Blood specimen (specimen) 12/22/2018 9:49 AM EDT 12/22/2018 10:01 AM EDT Narrative Resulting Agency Comment Spec In Lab Faye Maxwell MD CHEMISTRY ORDERABLES Performing Organization Address City/[facility] Co de Phone Number [facility] [place] [address] * Albumin Level (12/22/2018 9:49 AM EDT) Albumin 3.7 3.2 - 5.2 gm/dL [facility] Blood specimen (specimen) 12/22/2018 9:49 AM EDT 12/22/2018 10:01 AM EDT Narrative Resulting Agency Comment Spec In Lab Faye Maxwell MD CHEMISTRY ORDERABLES Performing Organization Address City/[facility]/ZIP Co de Phone Number [facility] [place] [address] * Uric acid (12/22/2018 9:49 AM EDT) Uric Acid 4.0 3.5 - 8.5 mg/dL [facility] Blood specimen (specimen) 12/22/2018 9:49 AM EDT 12/22/2018 10:01 AM EDT Narrative Resulting Agency Comment Spec In Lab Faye Maxwell MD CHEMISTRY ORDERABLES Performing Organization Address [facility] Co de Phone Number [facility] [place] [address] documented in this encounter Visit Diagnoses Diagnosis Proteinuria, unspecified type Obesity, unspecified classification, unspecified obesity type, unspecified whether serious comorbidity present 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
--- OUTSIDE RECORDS SUMMARY | 2024-05-27 18:03 | XMS_ITS | Encounter Summary ---
Author Organization [facility] [place] [address] Care Team Providers Care Contact Lens Inspector Name Role Phone Elke Martinez APRN Primary Care Provider [phone] Reason for Visit * Reason Comments Other membranous glomerulo shahram Encounter Details Date Type Department Care Team (Latest Contact Info) Description 02/14/2011 11:00 AM EDT Office Visit [place] [address] Faye Maxwell MD [facility] [place] [address] CKD (chronic kidney disease) stage 3, GFR [...] Renal and Hypertension clinic Charles Nick 1975 [id number] Chief Complaint: This is a followup visit to the Renal and Hypertension clinic for this 35 y.o. year old woman with a diagnosis of biopsy-proven membranous glomerulopathy presenting with NS and intermittent gross hematuria in 2002. He was not treated with immunosupression. [place] . 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 History of Present [...] care of this interesting patient CC: ELKE MARTINEZ, YOCASTA [address] [facility] [address] documented in this encounter Plan of Treatment Upcoming Encounters Date Type Department Care Team (Late st Contact Info) Description 05/28/2024 8:00 AM EDT Office Visit Hematology/Oncology at [address] [phone] Rodriguez Fowler MD [facility] [place] [address] Sherry Cedillo [address] HEMATOLOGY AND ONCOLOGY [place], [place] [phone] 05/28/2024 8:30 AM EDT Infusion Hematology Oncology at [address] [phone] 05/28/2024 9:30 AM EDT Clinical Support Hematology/Oncology at [address] [phone] [facility] DR [place]ATOLOG[place] [address] documented as of this encounter Procedures Procedure [...] 1:14 PM EDT) Creatinine, Urine 210 mg/dL [facility]Class[facility]ixI[facility] Protein, Urine 122(H) 0 - 12 mg/dL [facility] MILLENNIUM Protein / Creatinine Ratio, Urine 0.6 ratio [facility] MILLENNIUM Urine specimen (specimen) 05/27/2012 1:14 PM EDT 05/27/2012 1:19 PM EDT Narrative Resulting Agency Comment Spec In Lab Faye Maxwell MD URINE ORDERABLES Performing Organization Address [facility] de Phone Number [facility] * Albumin (05/27/2012 1:08 PM EDT) Albumin 3.9 3.2 - 5.2 gm/dL [facility] NiftyThriftyBANNER BEHAVIORAL HEALTH HOSPITALIUM Blood specimen (specimen) 05/27/2012 1:08 PM EDT 05/27/2012 1:16 PM EDT Narrative Resulting Agency Comment Spec In Lab Faye Maxwell MD CHEMISTRY ORDERABLES Performing Organization Address City/[facility] Co de Phone Number [facility] * Basic metabolic panel (05/27/2012 1:08 PM EDT) Glucose 94 60 - 199 mg/dL CERNER MILLENNIUM Comment:Diabetes: >=200 mg/d L plus symptoms Blood Urea Nitrogen 11 10 - 20 mg/dL CERNER MILLENNIUM Creatinine 0.97 0.80 - 1.50 mg/dL CERNER MILLENNIUM Comment: Please note that the pediatric reference intervals supplied above were not validated at [facility]. Results from pediatric patients should be interpreted [...] Maxwell MD CHEMISTRY ORDERABLES Performing Organization Address [facility] de Phone Number CERHelloworldENNIUM * (ABNORMAL) Protein/Creatinine Ratio, urine (02/14/2011 2:15 PM EDT) Creatinine, Urine 134 mg/dL CERNER MILLENNIUM Protein, Urine 65(H) 0 - 12 mg/dL CERNER MILLENNIUM Protein / Creatinine Ratio, Urine 0.5 ratio CERNER MILLENNIUM Urine specimen (specimen) 02/14/2011 2:15 PM EDT 02/14/2011 3:00 PM EDT Faye Maxwell MD URINE ORDERABLES Performing Organization Address [facility] Co de Phone Number CERDENA NiftyThriftyENNIUM * Albumin (02/14/2011 12:21 PM EDT) Albumin 4.2 3.2 - 5.2 gm/dL CERNER NiftyThriftyENNIUM Blood specimen (specimen) 02/14/2011 12:21 PM EDT [...] EDT Faye Maxwell MD HEMATOLOGY ORDERABLE S CRISTO ESCOBARIUM * Phosphorus (02/14/2011 10:02 AM EDT) Phosphorus 2.9 2.5 - 4.5 mg/dL CERNER MILLENNIUM Blood specimen (specimen) 02/14/2011 10:02 AM EDT 02/14/2011 10:06 AM EDT Faye Maxwell MD CHEMISTRY ORDERABLES Performing Organization Address City/[facility] Co de Phone Number CRISTO LIENNIUM * (ABNORMAL) CBC (with Diff) (02/14/2011 10:02 [...] Maxwell MD CHEMISTRY ORDERABLES Performing Organization Address City/[facility] Co de Phone Number CERDENA LIENNIUM * Albumin (02/14/2011 10:02 AM EDT) Albumin 4.1 3.2 - 5.2 gm/dL CERNER MILLENNIUM Blood specimen (specimen) 02/14/2011 10:02 AM EDT 02/14/2011 10:06 AM EDT Faye Maxwell MD CHEMISTRY ORDERABLES Performing Organization Address City/[facility]/ZIP Co de Phone Number CERDENA LIENNIUM documented in this encounter Visit Diagnoses Diagnosis CKD (chronic kidney disease) stage 3, GFR 30-59 ml/min- Primary Chronic kidney disease, Stage III (moderate) Hypertension Unspecified essential hypertension 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
--- OUTSIDE RECORDS SUMMARY | 2024-05-27 18:03 | XMS_ITS | Encounter Summary ---
Author Organization Formerly [facility] [place] [address] Care Team Providers Care Assembler Steam And Gas Turbine Name Role Phone Dariana Méndez MD Primary Care Provider [phone] Reason for Visit * Reason Comments Medication Refill Encounter Details Date Type Department Care Team (Late Contact Info) Description 09/14/2017 Refill Nephrology [place] [address] Faye Maxwell MD [facility] [place] [address] Proteinuria; Obesity; Hypertension secondary to other renal [...] AM EDT Office Visit Hematology/Oncology at [address] [phone] Rodriguez Fowler MD [facility] [place] [address] Sherry Cedillo APRN [address] [place] [address] DR HEMATOLOGY AND ONCOLOGY [place], [place] [address] 05/28/2024 8:30 AM EDT Infusion Hematology Oncology at [address] [phone] 05/28/2024 9:30 AM EDT Clinical Support Hematology/Oncology at [address] [phone] Leah Rose, ARASH [facility] [place] [address] documented as of this encounter Visit Diagnoses Diagnosis Proteinuria Obesity Obesity, unspecified 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
--- OUTSIDE RECORDS SUMMARY | 2024-05-27 18:03 | XMS_ITS | Encounter Summary ---
[place] [address] Care Team Providers Care Instructor Dramatic Arts Name Role Phone Dariana Méndez MD Primary Care Provider [phone] Reason for Referral * Consultation (Routine) - Closed Specialty Diagnoses / Procedures Referred By Contac t Referred To Contact General Surgery Diagnoses Proteinuria Obesity Hypertension secondary to other renal disorders Morbid obesity due to excess calories Faye Maxwell MD [facility] [place] [address] [facility] [address] [place] [phone] Referral ID Status Reason Start Date Expiration Date V isits Requested Visits Authorized [id number] Closed Assume Subset of Care 08/16/2016 08/16/2017 1 1 Reason for Visit * Consultation (Routine) - Closed Specialty Diagnoses / Procedures Referred By Contac t Referred To Contact Nephrology Diagnoses CHRONIC KIDNEY DISEASE Dariana Méndez MD [address] [place] [address] Faye Maxwell MD [facility] [address] Referral ID Status Reason Start Date Expiration Date V isits Requested Visits Authorized [id number] Closed Consult & Test Connection Center 07/17/2016 07/17/2017 1 1 Encounter Details Date Type Department Care Team (Latest Contact Info) Description 08/16/2016 3:30 PM EST Office Visit [place] [address] Faye Maxwell MD [facility] [place] [address] Proteinuria; Obesity; Hypertension secondary to other renal [...] Renal and Hypertension clinic Charles Nick 1975 [id number] Chief Complaint: This is a followup visit to the Renal and Hypertension clinic for this 40 y.o. 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 He underwent biopsy in 2007 at [facility] which showedresolving membranous GN. Currently in remission. [...] anxiety Reports his father, who lives in [place], has proteinuria and edema. Father is not [...] AM EDT Office Visit Hematology/Oncology at [address] [phone] Rodriguez Fowler MD [facility] [place] [address] Sherry Cedillo APRN [address] [place] [address] DR [place] [address] 05/28/2024 8:30 AM EDT Infusion Hematology Oncology at [address] [phone] 05/28/2024 9:30 AM EDT Clinical Support Hematology/Oncology at [address] [phone] [facility] DR HEMATOLOGY [place] [address] Scheduled Referrals Name Type Priority Associated Diagnoses [...] Uric Acid 5.0 3.5 - 8.5 mg/dL [facility] Blood specimen (specimen) 11/14/2017 3:39 PM EST 11/14/2017 3:56 PM EST Narrative Resulting Agency Comment Spec In Lab Faye Maxwell MD CHEMISTRY ORDERABLES Performing Organization Address [facility]/ZIP Co de Phone Number [facility] [place] [address] * Albumin Level (11/14/2017 3:39 PM EST) Pathologist [facility] Albumin 3.9 3.2 - 5.2 gm/dL [facility] Blood specimen (specimen) 11/14/2017 3:39 PM EST 11/14/2017 3:56 PM EST Narrative Resulting Agency Comment Spec In Lab Faye Maxwell MD CHEMISTRY ORDERABLES Performing Organization Address [facility] Co de Phone Number [facility] [place] [address] * (ABNORMAL) Basic Metabolic Panel (non-fasting) (11/14/2017 3:39 PM EST) Pathologist [facility] Glucose 313(H) 65 - 199 mg/dL [facility] Comment:Diabetes: >=200 mg/d L plus symptoms Blood Urea Nitrogen 11 10 - 20 mg/dL [facility] Creatinine 1.01 0.80 - 1.50 mg/dL [facility] Sodium 135 135 - 145 mmol/L [facility] Potassium 4.2 3.5 - 5.0 mmol/L [facility] Comment: Please note: ??Patients with WBC >100,000 may have falsely elevated Potassium levels. ??For accurate Potassium quantification in these patients send serum separator tube (gold top) for subsequent determinations. ??Contact the Clinical Chemistry Laboratory if there are any questions. Chloride 93(L) 98 - 107 mmol/L [facility] Carbon Dioxide 25 22 - 31 mmol/L [facility] Anion Gap 17(H) 5 - 15 mmol/L [facility] Calcium 8.9 8.5 - 10.5 mg/dL [facility] Est Glomerular Filtration Rate >60 >=60 [facility] Comment: The reported eGFR should be multiplied by 1.2 for patients. The MDRD is not an appropriate measure of renal function for patients with body mass extremes or in patients with acute kidney failure. http://[employer]/DHnkdep http://[employer]/DHMCnkf Blood specimen (specimen) 11/14/2017 3:39 PM EST 11/14/2017 3:56 PM EST Narrative Resulting Agency Comment Spec In Lab Faye Maxwell MD CHEMISTRY ORDERABLES Performing Organization Address [facility]/ZIP Co de Phone Number [facility] [place] [address] * (ABNORMAL) Protein/Creatinine Ratio, urine (08/16/2016 3:30 PM EST) Creatinine, Urine 137 mg/dL [facility] Protein, Urine 27(H) 0 - 12 mg/dL [facility] Protein / Creatinine Ratio, Urine 0.2 ratio [facility] Urine specimen (specimen) 08/16/2016 3:30 PM EST 08/16/2016 5:02 PM EST Narrative Resulting Agency Comment Spec In Lab Faye Maxwell MD URINE ORDERABLES Performing Organization Address City/[facility]/ZIP Co de Phone Number [facility] [place] [address] * (ABNORMAL) Basic Metabolic Panel (non-fasting) (08/16/2016 2:14 PM EST) Glucose 183 65 - 199 mg/dL [facility] Comment:Diabetes: >=200 mg/d L plus symptoms Blood Urea Nitrogen 11 10 - 20 mg/dL [facility] Creatinine 1.21 0.80 - 1.50 mg/dL [facility] Comment: Please note that the pediatric reference intervals supplied above were not validated at [facility]. Results from pediatric patients should be interpreted in conjunction to the patient's age, height and muscle mass. Sodium 139 135 - 145 mmol/L [facility] Potassium 4.3 3.5 - 5.0 mmol/L [facility] Comment: Please note: ??Patients with WBC >100,000 may have falsely elevated Potassium levels. ??For accurate Potassium quantification in these patients send serum separator tube (gold top) for subsequent determinations. ??Contact the Clinical Chemistry Laboratory if there are any questions. Chloride 97(L) 98 - 107 mmol/L [facility] Carbon Dioxide 30 22 - 31 mmol/L [facility] Anion Gap 12 5 - 15 mmol/L [facility] Calcium 9.0 8.5 - 10.5 mg/dL [facility] Est Glomerular Filtration Rate >60 >=60 [facility] Comment: This estimated GFR (eGFR) value [...] the following links into your internet browser. [email or web address] [email or web address] Blood specimen (specimen) 08/16/2016 2:14 PM EST 08/16/2016 2:19 PM EST Narrative Resulting Agency Comment Spec In Lab Faye Maxwell MD CHEMISTRY ORDERABLES [facility] [place] [address] documented in this encounter Visit Diagnoses Diagnosis Proteinuria Obesity Obesity, unspecified Hypertension secondary to other renal disorders Morbid obesity due to excess calories Duodenal adenocarcinoma Malignant neoplasm of duodenum documented in this encounter Care Teams Instructor Dramatic Arts Relationship Specialty Start Date End Date Dariana Méndez MD [address] [place] [address] PCP - General Family Medicine 07/16/16 10/29/22 documented as of this encounter
--- OUTSIDE RECORDS SUMMARY | 2024-05-27 18:03 | XMS_ITS | Encounter Summary ---
Author Organization [facility] Address [facility] [place] [address] Care Team Providers Care Tabulating Machine Mechanic Name Role Phone Elke Martinez APRN Primary Care Provider [phone] Encounter Details Date Type Department Care Team (Late st Contact Info) Description 05/11/2014 4:30 PM EDT Follow-Up [place] [address] Faye Maxwell MD [facility] [place] [place] [address] CKD (chronic kidney disease) stage 3, GFR [...] Renal and Hypertension clinic Charles Nick 1975 [id number] Chief Complaint: This is a followup visit to the Renal and Hypertension clinic for this 38 y.o. 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 He underwent biopsy in 2007 at [facility] which showedresolving membranous GN. Currently in remission. [...] NSAIDs Reports his father, who lives in [place], has proteinuria and edema. Father is not [...] AM EDT Office Visit Hematology/Oncology at [address] [phone] Rodriguez Fowler MD [facility] [place] [address] Sherry Cedillo APRN [address] [place] [address] DR HEMATOLOGY AND ONCOLOGY [place], [place] [phone] 05/28/2024 8:30 AM EDT Infusion Hematology Oncology at [address] [phone] 05/28/2024 9:30 AM EDT Clinical Support Hematology/Oncology at [address] [phone] Leah Rose, ARASH [facility] DR [place] [address] documented as of this encounter Procedures Procedure [...] In Lab Faye Maxwell MD URINE ORDERABLES [facility] [place] * Basic Metabolic Panel (non-fasting) (07/13/2015 3:13 PM EDT) Glucose 107 65 - 199 mg/dL [facility] Comment:Diabetes: >=200 mg/d L plus symptoms Blood Urea Nitrogen 12 10 - 20 mg/dL [facility] Creatinine 0.99 0.80 - 1.50 mg/dL [facility] Comment: Please note that the pediatric reference intervals supplied above were not validated at [facility]. Results from pediatric patients should be [...] the following links into your internet browser. [email or web address] Blood specimen (specimen) 07/13/2015 3:13 PM EDT [...] ORDERABLE S [facility] * (ABNORMAL) Hemogram (05/11/2014 5:05 PM EDT) [...] Hemoglobin Concentration 33.4 32.0 - 36.5 gm/dL [facility] Platelet 173 145 - 370 x10(3)/mc L [facility] RDW Standard Deviation 42.6 35.0 - 46.0 fL [facility] RDW coefficient of variation 14.8(H) 10.9 - 14.4 % [facility] Mean Platelet Volume 11.2 9.0 - 12.0 fL [facility] Blood specimen (specimen) 05/11/2014 5:05 PM EDT 05/11/2014 5:20 PM EDT Narrative Resulting Agency Comment Spec In Lab Faye Maxwell MD HEMATOLOGY ORDERABLE S Performing Organization Address [facility] Co de Phone Number [facility] * Phosphorus (05/11/2014 5:05 PM EDT) Phosphorus 2.7 2.5 - 4.5 mg/dL [facility] Blood specimen (specimen) 05/11/2014 5:05 PM EDT 05/11/2014 5:20 PM EDT Narrative Resulting Agency Comment Spec In Lab Faye Maxwell MD CHEMISTRY ORDERABLES Performing Organization Address [facility] Co de Phone Number [facility]ILLENNI[facility] * Basic Metabolic Panel (non-fasting) (05/11/2014 5:05 PM EDT) Glucose 193 60 - 199 mg/dL [facility] Comment:Diabetes: >=200 mg/d L plus symptoms Blood Urea Nitrogen 13 10 - 20 mg/dL [facility] Creatinine 1.07 0.80 - 1.50 mg/dL [facility] Comment: Please note that the pediatric reference intervals supplied above were not validated at [facility]. Results from pediatric patients should be interpreted in conjunction to the patient's age, height and muscle mass. Sodium 135 135 - 145 mmol/L [facility] Potassium 3.7 3.5 - 5.0 mmol/L [facility] Comment: [...] the following links into your internet browser. [email or web address] Blood specimen (specimen) 05/11/2014 5:05 PM EDT 05/11/2014 5:20 PM EDT Narrative Resulting Agency Comment Spec In Lab Faye Maxwell MD CHEMISTRY ORDERABLES Performing Organization Address [facility] de Phone Number CRISTO LIPAMIUM * Albumin Level (05/11/2014 5:05 PM EDT) Albumin 3.9 3.2 - 5.2 gm/dL [facility] Blood specimen (specimen) 05/11/2014 5:05 PM EDT 05/11/2014 5:20 PM EDT Narrative Resulting Agency Comment Spec In Lab Faye Maxwell MD CHEMISTRY ORDERABLES Performing Organization Address [facility] de Phone Number MISTYDENA LIPAMIUM * (ABNORMAL) Protein/Creatinine Ratio, urine (05/11/2014 4:15 PM EDT) Creatinine, Urine 190 mg/dL [facility] Protein, Urine 76(H) 0 - 12 mg/dL [facility] Protein / Creatinine Ratio, Urine 0.4 ratio [facility] Urine specimen (specimen) 05/11/2014 4:15 PM EDT 05/11/2014 5:11 PM EDT Narrative Resulting Agency Comment Spec In Lab Faye Maxwell MD URINE ORDERABLES Performing Organization Address [facility]/State/ZIP Co de Phone Number CRISTO MIGUEL documented in this encounter Visit Diagnoses Diagnosis CKD (chronic kidney disease) stage 3, GFR 30-59 ml/min- Primary Chronic kidney disease, Stage III (moderate) Persistent proteinuria Proteinuria Morbid obesity with BMI of 45.0-49.9, adult Morbid obesity Obstructive sleep apnea (adult) (pediatric) Duodenal adenocarcinoma Malignant neoplasm of duodenum documented in this encounter Care Teams Tabulating Machine Mechanic Relationship Specialty Start Date End Date Elke Martinez APRN [address] [place] [address] PCP - General 08/07/10 03/03/16 documented as of this encounter
--- OUTSIDE RECORDS SUMMARY | 2024-05-27 18:03 | XMS_ITS | Encounter Summary ---
Author Organization Formerly [facility] [place] [address] Care Team Providers Care Assistant Printer Floor Covering Name Role Phone Dariana Méndez MD Primary Care Provider [phone] Encounter Details Date Type Department Care Team (Latest Contact Info) Description 12/22/2018 10:00 AM EDT Office Visit Neph[place] [address] Faye Maxwell MD 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 year old man Mr Jade stopped his medications including insulin (continued metformin) for 3 weeks while he was in [place] with his family following the of his [...] without imunotherapy. [place] biopsy in 2007 [place] [facility]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Remians in remission. ?? Morbid obesity. ?? Hypertension ?? DMII insulin-dependent. Currently uncontrolled. No identified complications ?? Obstructive sleep apnea: Uses CPAP with improvement tin daytime alertness and mood ?? 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 [...] AM EDT Office Visit Hematology/Oncology at [address] [phone] Rodriguez Fowler MD [facility] [place] [address] Sherry Cedillo APRN [address] [place] [address] DR HEMATOLOGY AND ONCOLOGY [place], [place] [phone] 05/28/2024 8:30 AM EDT Infusion Hematology Oncology at [address] [phone] 05/28/2024 9:30 AM EDT Clinical Support Hematology/Oncology at [address] [phone] [facility] DR HEMATOLOGY [place] [address] documented as of this encounter Procedures Procedure [...] Ratio, Urine 193(H) 0 - 29 mcg/mg Cr [facility] Comment: Reference Ranges: <30 mcg/mg: [...] 2, 357? 362 Albumin, Urine 84.8 mg/L [facility] Creatinine, Urine 44 mg/dL [facility] Urine specimen (specimen) 12/22/2018 10:00 AM EDT 12/22/2018 12:17 PM EDT Narrative Resulting Agency Comment Spec In Lab Faye Maxwell MD URINE ORDERABLES Performing Organization Address City/[facility]/ZIP Co de Phone Number [facility] [place] [address] * (ABNORMAL) Protein/Creatinine Ratio, urine (12/22/2018 10:00 AM EDT) Creatinine, Urine 44 mg/dL [facility] Protein, Urine 19(H) 0 - 12 mg/dL [facility] Protein / Creatinine Ratio, Urine 0.4 ratio [facility] Urine specimen (specimen) 12/22/2018 10:00 AM EDT 12/22/2018 12:17 PM EDT Narrative Resulting Agency Comment Spec In Lab Faye Maxwell MD URINE ORDERABLES Performing Organization Address City/[facility]/ZIP Co de Phone Number [facility] [place] [address] documented in this encounter Visit Diagnoses Diagnosis CKD (chronic kidney disease) stage 3, GFR 30-59 ml/min Chronic kidney disease, Stage III (moderate) Type 2 diabetes mellitus with microalbuminuria, unspecified 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
--- OUTSIDE RECORDS SUMMARY | 2024-05-27 18:03 | XMS_ITS | Encounter Summary ---
[place] [address] Care Team Providers Care Profiling Machine Set Up Operator Tool Name Role Phone Olga Hoffman APRN Primary Care Provider [phone] Reason for Referral * Consultation (Routine) - Closed Specialty Diagnoses / Procedures Referred By Janak t Referred To Contact Hematology and Oncology Diagnoses Polycythemia Olga Hoffman APRN [address] [place] [address] [facility] Hem Onc [address] [place] [address] Referral ID Status Reason Start Date Expiration Date V isits Requested Visits Authorized [id number] Closed Consult, Test & Treat PCP Updated and/or Approved 11/20/2022 11/20/2023 6 6 Encounter Details Date Type Department Care Team (Late st Contact Info) Description 11/20/2022 Transcribe Orders eDH Incoming Referrals [phone] Olga Hoffman APRN [address] [place] [address] Polycythemia Social History Tobacco Use [...] AM EDT Office Visit Hematology/Oncology at [address] [phone] Rodriguez Fowler MD [facility] [place] [address] Sherry Cedillo APRN [address] [place] [address] DR HEMATOLOGY [place] [address] 05/28/2024 8:30 AM EDT Infusion Hematology Oncology at [address] [phone] 05/28/2024 9:30 AM EDT Clinical Support Hematology/Oncology at [address] [phone] [facility] DR [place] [address] Scheduled Referrals Name Type Priority Associated Diagnoses Order Schedule Referral to Hematology and Oncology Outpatient Referral Routine Polycythemia Ordered: 11/20/2022 documented as of this encounter Visit Diagnoses Diagnosis Polycythemia Polycythemia vera Duodenal adenocarcinoma Malignant neoplasm of duodenum documented in this encounter Care Teams Profiling Machine Set Up Operator Tool Relationship Specialty Start Date End Date Olga Hoffman APRN [address] [place] [address] PCP - General Family Medicine 10/30/22 documented as of this encounter
--- OUTSIDE RECORDS SUMMARY | 2024-05-27 18:03 | XMS_ITS | Encounter Summary ---
Author Organization [facility] [place] [address] Care Team Providers Care Employment Adjudicator Name Role Phone Dariana Méndez MD Primary Care Provider [phone] Encounter Details Date Type Department Care Team (Late Contact Info) Description 09/23/2022 Ancillary Procedure [place] [address] Dariana Méndez MD [address] [place] [address] Social History Tobacco Use Types Packs/Day Years [...] 8:00 AM EDT Office Visit Hematology/Oncology at [address] [phone] Rodriguez Fowler MD [facility] [place] [place] [address] Sherry Cedillo APRN [address] [place] [address] [place] [address] 05/28/2024 8:30 AM EDT Infusion Hematology Oncology at [address] [phone] 05/28/2024 9:30 AM EDT Clinical Support Hematology/Oncology at [address] [phone] [facility] DR HEMATOLOGY [place] [address] documented as of this encounter Procedures Procedure Name Priority Date/Time Associated Diagnosis Comments FILM LIBRARY STORAGE ONLY CT CHEST ABDOMEN PELVIS Routine 09/23/2022 12:00 AM EST documented in this encounter Results * Film Library- Storage Only CT Chest Abdomen Pelvis (09/23/2022 12:00 AM EST) Narrative [facility] - 10/30/2022 10:11 AM EST This exam is auto-finalizing. It's purpose is for storage only. Dariana Méndez MD G FILM LIBRARY ORD ERABLES [place], [place] documented in this encounter Visit Diagnoses Not on filedocumented in this encounter Care Teams Employment Adjudicator Relationship Specialty Start Date End Date Dariana Méndez MD [address] [place] [address] PCP - General Family Medicine 07/16/16 10/29/22 documented as of this encounter
--- OUTSIDE RECORDS SUMMARY | 2024-05-27 18:03 | XMS_ITS | Encounter Summary ---
Author Organization [facility] [place] [address] Care Team Providers Care L D Rn Name Role Phone Dariana Méndez MD Primary Care Provider [phone] Encounter Details Date Type Department Care Team (Late st Contact Info) Description 12/08/2019 Telephone [place] [phone] Shahida Joshi Social History Tobacco Use Types [...] AM EDT Office Visit Hematology/Oncology at [address] [phone] Rodriguez Fowler MD [facility] [place] [address] Sherry Cedillo APRN [address] [place] [address] DR HEMATOLOGY AND ONCOLOGY [place], [place] [address] 05/28/2024 8:30 AM EDT Infusion Hematology Oncology at [address] [phone] 05/28/2024 9:30 AM EDT Clinical Support Hematology/Oncology at [address] [phone] Leah Rose, RD [facility] DR [place] [address] documented as of this encounter Visit Diagnoses Not on filedocumented in this encounter Care Teams L D Rn Relationship Specialty Start Date End Date Dariana Méndez MD [address] [place] [address] PCP - General Family Medicine 07/16/16 10/29/22 documented as of this encounter
--- OUTSIDE RECORDS SUMMARY | 2024-05-27 18:03 | XMS_ITS | Encounter Summary ---
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 (Primary [...] AM EDT Office Visit Hematology/Oncology at [address] [phone] Rodriguez Fowler MD [facility] [place] [address] Sherry Cedillo APRN [address] [place] [address] DR HEMATOLOGY [place] [address] 05/28/2024 8:30 AM EDT Infusion Hematology Oncology at [address] [phone] 05/28/2024 9:30 AM EDT Clinical Support Hematology/Oncology at [address] [phone] [facility] DR [place] [address] Scheduled Orders Name Type Priority Associated Diagnoses [...] MD HEMATOLOGY ORDERABLE S Performing Organization Address City/State/[facility] Co de Phone Number [facility] documented in this encounter Visit Diagnoses Diagnosis 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
--- OUTSIDE RECORDS SUMMARY | 2024-05-27 18:03 | XMS_ITS | Encounter Summary ---
Author Organization Formerly [facility] [place] [address] Care Team Providers Care Card Fixer Name Role Phone Dariana Méndez MD Primary Care Provider [phone] Encounter Details Date Type Department Care Team (Latest Contact Info) Description 11/14/2017 3:30 PM EST Laboratory Appointment Lab 3L [place] [phone] Proteinuria; Obesity; Hypertension secondary to other renal [...] 8:00 AM EDT Office Visit Hematology/Oncology at [address] [phone] Rodriguez Fowler MD [facility] [place] [address] Sherry Cedillo APRN [address] [place] [address] DR HEMATOLOGY AND ONCOLOGY [place], [place] [phone] 05/28/2024 8:30 AM EDT Infusion Hematology Oncology at [address] [phone] 05/28/2024 9:30 AM EDT Clinical Support Hematology/Oncology at [address] [phone] Leah Rose, ARASH [facility] DR HEMATOLOGY [place] [address] documented as of this encounter Procedures Procedure [...] 3:39 PM EST) Neutrophil % 62.6 % [facility] Neutrophil Absolute 6.63(H) 1.70 - 6.10 x10(3)/mc L [facility] Lymph % 30.3 % [facility] Lymphocytes Abs 3.2 0.9 - 3.2 x10(3)/mc L [facility] Monocyte % 4.6 % [facility] Monocyte Abs 0.5 0.3 - 0.9 x10(3)/mc L [facility] Eos % 1.4 % [facility] Eosinophils Abs 0.2 0.0 - 0.4 x10(3)/[facility] Basophil % 0.8 % [facility] Baso Absolute 0.1 0.0 - 0.1 x10(3)/[facility] Immature Gran % 0.30 % [facility] [...] 0.04 x10(3)/[facility] Blood specimen (specimen) 11/14/2017 3:39 PM EST 11/14/2017 3:56 PM EST Narrative Resulting Agency Comment Spec In Lab Faye Maxwell MD HEMATOLOGY ORDERABLE S [facility] [place] [address] * (ABNORMAL) Hemogram (11/14/2017 3:39 PM EST) White Blood Cell 10.6(H) 4.0 - 9.5 x10(3)/[facility] Red Blood Cell 6.35(H) 4.58 - 5.54 x10(6)/[facility] Hemoglobin 16.1 13.7 - 16.5 gm/dL [facility] Hematocrit 48.0 40.5 - 48.5 % [facility] Mean Cell Volume 75.6(L) 82.9 - 93.1 fL [facility] Mean Cell Hemoglobin 25.4(L) 27.5 - 32.1 pg [facility] Mean Cell Hemoglobin Concentration 33.5 32.0 - 35.7 gm/dL [facility] Platelet 219 145 - 357 x10(3)/mc L [facility] RDW Standard Deviation 38.8 36.0 - 45.0 fL [facility] RDW coefficient of variation 14.4(H) 11.4 - 13.8 % [facility] Mean Platelet Volume 11.0 7.6 - 12.9 fL [facility] NRBC% auto 0.0 % [facility] NRBC Absolute 0.000 0.000 - 0.000 x10(3)/mc L [facility] Blood specimen (specimen) 11/14/2017 3:39 PM EST 11/14/2017 3:56 PM EST Narrative Resulting Agency Comment Spec In Lab Faye Maxwell MD HEMATOLOGY ORDERABLE S Performing Organization Address [facility] [place] [address] * Uric acid (11/14/2017 3:39 PM EST) Uric Acid 5.0 3.5 - 8.5 mg/dL [facility] Blood specimen (specimen) 11/14/2017 3:39 PM EST 11/14/2017 3:56 PM EST Narrative Resulting Agency Comment Spec In Lab Faye Maxwell MD CHEMISTRY ORDERABLES Performing Organization Address City/[facility] Co de Phone Number [facility] [place] [address] * Albumin Level (11/14/2017 3:39 PM EST) Albumin 3.9 3.2 - 5.2 gm/dL [facility] Blood specimen (specimen) 11/14/2017 3:39 PM EST 11/14/2017 3:56 PM EST Narrative Resulting Agency Comment Spec In Lab Faye Maxwell MD CHEMISTRY ORDERABLES Performing Organization Address City/[facility] Co de Phone Number [facility] [place] [address] * (ABNORMAL) Basic Metabolic Panel (non-fasting) (11/14/2017 3:39 PM EST) Glucose 313(H) 65 - 199 mg/dL [facility] Comment:Diabetes: >=200 mg/d L plus symptoms Blood Urea Nitrogen 11 10 - 20 mg/dL [facility] Creatinine 1.01 0.80 - 1.50 mg/dL [facility] Sodium 135 135 - 145 mmol/L [facility] Potassium 4.2 3.5 - 5.0 mmol/L [facility] Comment: Please note: ??Patients with WBC >100,000 may have falsely elevated Potassium levels. ??For accurate Potassium quantification in these patients send serum separator tube (gold top) for subsequent determinations. ??Contact the Clinical Chemistry Laboratory if there are any questions. Chloride 93(L) 98 - 107 mmol/L [facility] Carbon Dioxide 25 22 - 31 mmol/L [facility] Anion Gap 17(H) 5 - 15 mmol/L [facility] Calcium 8.9 8.5 - 10.5 mg/dL [facility] Est Glomerular Filtration Rate >60 >=60 [facility] Comment: The reported eGFR should be multiplied by 1.2 for patients. The MDRD is not an appropriate measure of renal function for patients with body mass extremes or in patients with acute kidney failure. http://[employer]/DHnkdep http://[employer]/DHMCnkf Blood specimen (specimen) 11/14/2017 3:39 PM EST 11/14/2017 3:56 PM EST Narrative Resulting Agency Comment Spec In Lab Faye Maxwell MD CHEMISTRY ORDERABLES [facility] [place] [address] documented in this encounter Visit Diagnoses Diagnosis Proteinuria Obesity Obesity, unspecified Hypertension secondary to other renal disorders Morbid obesity due to excess calories Duodenal adenocarcinoma Malignant neoplasm of duodenum documented in this encounter Care Teams Card Fixer Relationship Specialty Start Date End Date Dariana Méndez MD [address] [place] [address] PCP - General Family Medicine 07/16/16 10/29/22 documented as of this encounter
--- OUTSIDE RECORDS SUMMARY | 2024-05-27 18:03 | XMS_ITS | Encounter Summary ---
[place] [address] Care Team Providers Care Site Supervisor Name Role Phone Olga Hoffman APRN Primary Care Provider [phone] Reason for Referral * Consultation (Routine) - Closed Specialty Diagnoses / Procedures Referred By Janak holland Referred To Contact Gastroenterology Diagnoses Fatty liver Liver - fatty liver Olga Hoffman APRN [address] [place] [address] [facility] [address] [place] [address] Referral ID Status Reason Start Date Expiration Date V isits Requested Visits Authorized [id number] Closed Consult, Test & Treat PCP Updated and/or Approved 10/30/2022 10/30/2023 12 12 Encounter Details Date Type Department Care Team (Late st Contact Info) Description 10/30/2022 Transcribe Orders eDH Incoming Referrals [phone] Olga Hoffman APRN [address] [place] [address] Fatty liver Social History Tobacco [...] AM EDT Office Visit Hematology/Oncology at [address] [phone] Rodriguez Fowler MD [facility] [place] [address] Sherry Cedillo APRN [address] [place] [address] DR HEMATOLOGY AND ONCOLOGY [place], [place] [address] 05/28/2024 8:30 AM EDT Infusion Hematology Oncology at [address] [phone] 05/28/2024 9:30 AM EDT Clinical Support Hematology/Oncology at [address] [phone] [facility] DR HEMATOLOGY [place] [address] Scheduled Referrals Name Type Priority Associated Diagnoses Order Schedule Referral to Gastroenterology Outpatient Referral Routine Fatty liver Ordered: 10/30/2022 documented as of this encounter Visit Diagnoses Diagnosis Fatty liver Other chronic nonalcoholic liver disease Duodenal adenocarcinoma Malignant neoplasm of duodenum documented in this encounter Care Teams Site Supervisor Relationship Specialty Start Date End Date Olga Hoffman APRN [address] [place] [address] PCP - General Family Medicine 10/30/22 documented as of this encounter
--- OUTSIDE RECORDS SUMMARY | 2024-05-27 18:03 | XMS_ITS | Encounter Summary ---
[place] [address] Care Team Providers Care Railway Switch Operator Name Role Phone Olga Hoffman APRN Primary Care Provider [phone] Reason for Referral * Diagnostic Test (Routine) - Closed Specialty Diagnoses / Procedures Referred By Contnina t Referred To Contact Radiology Diagnoses CHAN (nonalcoholic steatohepatitis) Procedures IR Biopsy Liver Percutaneous Esme Brown APRN [facility] [place] [address] [facility] [place] [address] Referral ID Status Reason Start Date Expiration Date V isits Requested Visits Authorized [id number] Closed Specialty Service Requested 12/25/2022 06/26/2024 1 1 Reason for Visit * Consultation (Routine) - Closed Specialty Diagnoses / Procedures Referred By Contnina holland Referred To Contact Gastroenterology Diagnoses Fatty liver Liver - fatty liver Olga Hoffman APRN [address] [place] [address] [facility] [address] [place] [phone] Referral ID Status Reason Start Date Expiration Date V isits Requested Visits Authorized [id number] Closed Consult, Test & Treat PCP Updated and/or Approved 10/30/2022 10/30/2023 12 12 Encounter Details Date Type Department Care Team (Late st Contact Info) Description 12/25/2022 10:30 AM EDT Office Visit [place] [phone] Esme Brown APRN [facility] [place] [address] CHAN (nonalcoholic steatohepatitis) Social History Tobacco Use [...] HEPATOLOGY NEW PATIENT CONSULTATION Charles Nick 1975 INTERNET CONSULTANT: ESME BROWN APRN PCP: Olga Hoffman APRN [...] Had an EGD and colonscopy done at [facility] 2-3 weeks ago. Found a polyp [...] ??? Penicillins Rash SOCIAL HISTORY [facility], [place]. 3 kids age 14, 12, 11. 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 Alcohol: on holidays will [...] Brown APRN Section of Gastroenterology [place] [address] Copy: Olga Hoffman APRN [address] / [place] [address] documented in this encounter Procedure Notes * Esme Brown APRN - 12/25/2022 10:30 AM EDTAssociated Order(s): FIBROSCAN Procedure(s): FIBROSCAN Pre-Procedure Diagnose(s): CHAN (nonalcoholic steatohepatitis) [facility] Liver Fibrosis Assessment Report Indication: Elevated liver enzymes, suspected NAFLD Performed by: ESME BROWN APRN Procedure: Vibration Controlled Transient Elastography (VCTE) or Fibroscan Nazlini Protocol: Patient's identity, procedure and site were [...] AM EDT Office Visit Hematology/Oncology at [address] [phone] Rodriguez Fowler MD [facility] [place] [address] Sherry Cedillo APRN [address] [place] [address] DR HEMATOLOGY AND ONCOLOGY [place], [place] [phone] 05/28/2024 8:30 AM EDT Infusion Hematology Oncology at [address] [phone] 05/28/2024 9:30 AM EDT Clinical Support Hematology/Oncology at [address] [phone] Leah Rose, ARASH [facility] DR [place] [address] documented as of this encounter Procedures Procedure [...] CHAN (nonalcoholic steatohepatitis) HC DNA AB DS ([place]) Routine 12/25/2022 11:50 AM EDT CHAN (nonalcoholic steatohepatitis) COMPREHENSIVE METABOLIC PANEL Routine 12/25/2022 11:50 AM EDT CHAN (nonalcoholic steatohepatitis) [id number] Routine 12/25/2022 10:30 AM EDT CHAN (nonalcoholic [...] EDT) Hepatitis B Core Antibody Negative Negative [facility] Blood 12/25/2022 11:5 0 AM EDT 12/25/2022 12:13 PM EDT Narrative Resulting Agency Comment Spec In Lab Esme Franks Bruce SUPERVISOR KOSHER DIETARY SERVICE CHEMISTRY ORDERABL ES Performing Organization Address [facility] Co de Phone Number [facility] [place] [address] * Hepatitis B Surface Antibody (12/25/2022 11:50 AM EDT) Hepatitis B Surface Antibody, Quantitative <3.5 IU/L [facility] Comment: HepB Surface Ab Quant: Unvaccinated: < 8.5 IU/L Vaccinated: >= 11.5 IU/L Hepatitis B Surface Antibody Negative [facility] Comment: Patient is presumed to be not vaccinated or immune to HBV infection. Expected Results: Vaccinated: Positive Unvaccinated: Negative Blood 12/25/2022 11:5 0 AM EDT 12/25/2022 12:13 PM EDT Narrative Resulting Agency Comment Spec In Lab Esme Brown APRN CHEMISTRY ORDERABL ES Performing Organization Address [facility] Co de Phone Number [facility] [place] [address] * Hepatitis B Surface Antigen (12/25/2022 11:50 AM EDT) Hepatitis B Surface Antigen Negative Negative [facility] Blood 12/25/2022 11:5 0 AM EDT 12/25/2022 12:13 PM EDT Narrative Resulting Agency Comment Spec In Lab Esme Brown SUPERVISOR KOSHER DIETARY SERVICE CHEMISTRY ORDERABL ES Performing Organization Address [facility] Co de Phone Number [facility] [place] [address] * Hepatitis C Antibody (12/25/2022 11:50 AM EDT) Hepatitis C Antibody Negative Negative [facility] Blood 12/25/2022 11:5 0 AM EDT 12/25/2022 12:13 PM EDT Narrative Resulting Agency Comment Spec In Lab Esme Brown APRN CHEMISTRY ORDERABL ES Performing Organization Address City/[facility]/ZIP Co de Phone Number [facility] [place] [address] * JENIFER Antibody Screen (12/25/2022 11:50 AM EDT) JENIFER Ab Screen Negative Negative [facility] Comment: This antinuclear antibody (JENIFER) [...] performed by the Special Chemistry Laboratory at [facility]. This change in testing location is associated with a change is testing method and reference intervals. Please review the results of this test in association with the posted reference intervals. dsDNA Ab <0.6 <=15.0 IU/mL [facility] Comment: <10 negative 10-15 [...] performed by the Special Chemistry Laboratory at [facility]. This change in testing location is associated with a change is testing method and reference intervals. Please review the results of this test in association with the posted reference intervals. Blood 12/25/2022 11:5 0 AM EDT 12/26/2022 7:24 AM EDT Narrative Resulting Agency Comment Spec In Lab Esme Brown APRN LAB SEND OUT ORDER DEDRA [facility] [place] [address] * Smooth Muscle Antibody (12/25/2022 11:50 AM EDT) Sm Muscle Ab (JANUARY) Negative Negative [facility] Comment: Negative: No further testing will be performed ADDITIONAL INFORMATION This test was developed and its performance characteristics determined by [facility] in a manner consistent with CLIA requirements. This test has not been cleared or approved by the U.S. Food and Drug Administration. Test Performed by: [place] [address] Gore Stitcher: Adam Gifford M.D. Ph.D.; CLIA# [id number] Blood 12/25/2022 11:5 0 AM EDT 12/25/2022 2:14 PM EDT Narrative Resulting Agency Comment Spec In Lab Esme Brown APRN LAB SEND OUT ORDER DEDRA Performing Organization Address City/[facility]/ZIP Co de Phone Number [facility] [place] [address] * Mitochondrial Antibody, M2 (12/25/2022 11:50 AM EDT) Mitochon Ab (JANUARY) <0.1 <0.1 (Negative) U [facility] Comment: Test Performed by: [facility] - [address] [address] Gore Stitcher: Adam Gifford M.D. Ph.D.; CLIA# [id number] Blood 12/25/2022 11:5 0 AM EDT 12/25/2022 2:14 PM EDT Narrative Resulting Agency Comment Spec In Lab Esme Brown APRN LAB SEND OUT ORDER DEDRA [facility] [place] [address] * Prothrombin Time (12/25/2022 11:50 AM EDT) Prothrombin Time 12.3 9.4 - 12.5 sec [facility] International Normalization Ratio 1.1 [facility] Comment: An INR <2.0 indicates adequate [...] Agency Comment Spec In Lab Esme Brown SUPERVISOR KOSHER DIETARY SERVICE HEMATOLOGY ORDERAB LES [facility] [place] [address] * (ABNORMAL) Comprehensive metabolic panel (non-fasting) (12/25/2022 11:50 AM EDT) Glucose 110 65 - 199 mg/dL [facility] Comment:Diabetes: >=200 mg/d L plus symptoms Blood Urea Nitrogen 8(L) 10 - 20 mg/dL [facility] Creatinine 0.96 0.80 - 1.50 mg/dL [facility] Sodium 139 135 - 145 mmol/L [facility] Potassium 3.7 3.5 - 5.0 mmol/L [facility] Comment: Please note: ??Patients with WBC >100,000 may have falsely elevated Potassium levels. ??For accurate Potassium quantification in these patients send serum separator tube (gold top) for subsequent determinations. ??Contact the Clinical Chemistry Laboratory if there are any questions. Chloride 100 98 - 107 mmol/L [facility] Carbon Dioxide 27 22 - 31 mmol/L [facility] Anion Gap 12 5 - 15 mmol/L [facility] Calcium 8.8 8.5 - 10.5 mg/dL [facility] Protein, Total 7.3 6.1 - 8.0 g/dL [facility] Albumin 4.2 3.2 - 5.2 g/dL [facility] Aspartate Aminotransferase 19 0 - 39 unit/L [facility] Alanine Aminotransferase 23 0 - 55 unit/L [facility] Alkaline Phosphatase 81 40 - 130 unit/L [facility] Bilirubin, Total 0.4 0.2 - 1.3 mg/dL [facility] Est Glomerular Filtration Rate 98 >=60 mL/min/1. 73 m?? [facility] Comment: This patient's estimated GFR was [...] Lab Esme Brown APRN CHEMISTRY ORDERABL ES [facility] [place] [address] * [id number] (12/25/2022 10:30 AM EDT) Narrative Esme Brown APRN - 12/25/2022 10:30 AM EDT Esme Brown APRN ? 12/25/2022 ??5:04 PM [facility] Liver Fibrosis Assessment Report Indication: ?? Elevated liver enzymes, suspected NAFLD Performed by: ??ESME BROWN APRN Procedure: Vibration Controlled Transient Elastography (VCTE) or Fibroscan Nazlini Protocol: Patient's identity, procedure and site were [...] duodenum documented in this encounter Care Teams Railway Switch Operator Relationship Specialty Start Date End Date Olga Hoffman APRN [address] [place] [address] PCP - General Family Medicine 10/30/22 documented as of this encounter
--- OUTSIDE RECORDS SUMMARY | 2024-05-27 18:03 | XMS_ITS | Encounter Summary ---
Author Organization Formerly [facility] [place] [address] Care Team Providers Care Electromechanical Technician Name Role Phone Olga Hoffman APRN Primary Care Provider [phone] Encounter Details Date Type Department Care Team (Late st Contact Info) Description 12/26/2022 Notes [place] [address] Tejas Henao PA [facility] DR [place] [address] Social History Tobacco Use Types Packs/Day Years [...] AM EDT Office Visit Hematology/Oncology at [address] [phone] Rodriguez Fowler MD [facility] [place] [address] Sherry Cedillo APRN [address] [place] [address] DR HEMATOLOGY AND ONCOLOGY [place], [place] [address] 05/28/2024 8:30 AM EDT Infusion Hematology Oncology at [address] [phone] 05/28/2024 9:30 AM EDT Clinical Support Hematology/Oncology at [address] [phone] [facility] HEMATOLOGY [place] [address] documented as of this encounter Visit Diagnoses Not on filedocumented in this encounter Care Teams Electromechanical Technician Relationship Specialty Start Date End Date Olga Hoffman APRN [address] [place] [address] PCP - General Family Medicine 10/30/22 documented as of this encounter
--- OUTSIDE RECORDS SUMMARY | 2024-05-27 18:03 | XMS_ITS | Encounter Summary ---
Author Organization [facility] [place] [address] Care Team Providers Care Human Resource Advisor Name Role Phone Dariana Méndez MD Primary Care Provider [phone] Reason for Referral * Consultation (Routine) - Closed Specialty Diagnoses / Procedures Referred By Contac t Referred To Contact General Surgery Diagnoses Proteinuria, unspecified type Obesity, unspecified classification, unspecified obesity type, unspecified whether serious comorbidity present Hypertension secondary to other renal disorders Faye Maxwell MD [facility] [place] [address] [facility] [address] [place] [address] Referral ID Status Reason Start Date Expiration Date V isits Requested Visits Authorized [id number] Closed Assume Subset of Care 11/14/2017 11/14/2018 1 1 Encounter Details Date Type Department Care Team (Latest Contact Info) Description 11/14/2017 4:30 PM EST Office Visit [place] [address] Faye Maxwell MD [facility] [place] [address] Proteinuria, unspecified type; Obesity, unspecified classification, unspecified [...] Renal and Hypertension clinic Charles Jade 1975 [id number] Chief Complaint: This is a followup visit [...] without imunotherapy. 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 ?? Morbid obesity. ?? DMII diagnosed one year ago. No identified complications ?? Obstructive sleep apnea: Uses CPAP with improvement tin daytime alertness and mood ?? Depression, anxiety Reports his father, who lives in [place], has proteinuria and edema. Father is not diabetic. 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 [...] 8:00 AM EDT Office Visit Hematology/Oncology at [address] [phone] Rodriguez Fowler MD [facility] [place] [address] Sherry Cedillo APRN [address] [place] [address] DR HEMATOLOGY [place] [address] 05/28/2024 8:30 AM EDT Infusion Hematology Oncology at [address] [phone] 05/28/2024 9:30 AM EDT Clinical Support Hematology/Oncology at [address] [phone] [facility] DR HEMATOLOGY [place] [address] Scheduled Referrals Name Type Priority Associated Diagnoses [...] Uric Acid 4.0 3.5 - 8.5 mg/dL [facility] Blood specimen (specimen) 12/22/2018 9:49 AM EDT 12/22/2018 10:01 AM EDT Narrative Resulting Agency Comment Spec In Lab Faye Maxwell MD CHEMISTRY ORDERABLES Performing Organization Address City/State/[facility] Co de Phone Number [facility] [place] [address] * Albumin Level (12/22/2018 9:49 AM EDT) Albumin 3.7 3.2 - 5.2 gm/dL [facility] Blood specimen (specimen) 12/22/2018 9:49 AM EDT 12/22/2018 10:01 AM EDT Narrative Resulting Agency Comment Spec In Lab Faye Maxwell MD CHEMISTRY ORDERABLES [facility] [place] [address] * (ABNORMAL) Basic Metabolic Panel (non-fasting) (12/22/2018 9:49 AM EDT) Glucose 409(H) 65 - 199 mg/dL [facility] Comment:Diabetes: >=200 mg/d L plus symptoms Blood Urea Nitrogen 8(L) 10 - 20 mg/dL [facility] Creatinine 0.85 0.80 - 1.50 mg/dL [facility] Sodium 134(L) 135 - 145 mmol/L [facility] Potassium 4.3 3.5 - 5.0 mmol/L [facility] Comment: Please note: ??Patients with WBC >100,000 may have falsely elevated Potassium levels. ??For accurate Potassium quantification in these patients send serum separator tube (gold top) for subsequent determinations. ??Contact the Clinical Chemistry Laboratory if there are any questions. Chloride 101 98 - 107 mmol/L [facility] Carbon Dioxide 22 22 - 31 mmol/L [facility] Anion Gap 11 5 - 15 mmol/L [facility] Calcium 8.9 8.5 - 10.5 mg/dL [facility] Est Glomerular Filtration Rate 106 >=60 mL/min/1. 73 m?? [facility] Comment: The eGFR was calculated using the CKD-EPI equation. As with all creatinine based estimates of kidney function, eGFR values calculated with the CKD-EPI equation are not accurate in patients with acute kidney failure, extremes of body mass or the acutely ill. http://[employer]/[facility] eGFR 123 >=60 mL/min/1. 73 m?? [facility] Comment: The eGFR was calculated using the CKD-EPI equation. As with all creatinine based estimates of kidney function, eGFR values calculated with the CKD-EPI equation are not accurate in patients with acute kidney failure, extremes of body mass or the acutely ill. http://[employer]/[facility] Blood specimen (specimen) 12/22/2018 9:49 AM EDT 12/22/2018 10:01 AM EDT Narrative Resulting Agency Comment Spec In Lab Faye Maxwell MD CHEMISTRY ORDERABLES Performing Organization Address [facility] Co de Phone Number [facility] [place] [address] * (ABNORMAL) U Albumin/Cre Ratio (11/14/2017 4:00 PM EST) Albumin / Creatinin Ratio, Urine 54(H) 0 - 29 mcg/mg Cr [facility] Comment: Reference Ranges: <30 mcg/mg: [...] 2, 357? 362 Albumin, Urine 11.9 mg/L [facility] Creatinine, Urine 22 mg/dL [facility] Urine specimen (specimen) 11/14/2017 4:00 PM EST 11/14/2017 4:48 PM EST Narrative Resulting Agency Comment Spec In Lab Faye Maxwell MD URINE ORDERABLES Performing Organization Address City/[facility]/ZIP Co de Phone Number [facility] [place] [address] documented in this encounter Visit Diagnoses Diagnosis Proteinuria, unspecified type Obesity, unspecified classification, unspecified obesity type, unspecified whether serious comorbidity present 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
--- OUTSIDE RECORDS SUMMARY | 2024-05-27 18:03 | XMS_ITS | Encounter Summary ---
Author Organization [facility] [place] [address] Care Team Providers Care Carton Packaging Machine Operator Name Role Phone Dariana Méndez MD Primary Care Provider [phone] Encounter Details Date Type Department Care Team (Late st Contact Info) Description 09/30/2019 Telephone [place] [phone] Shahida Joshi Social History Tobacco Use Types Packs/Day Years Used Date Smoking Tobacco: Never Smokeless Tobacco: Never Sex and Gender Information Value Date Recorded Sex Assigned at Not on file Gender Identity Not on file Sexual Orientation Not on file documented as of this encounter Miscellaneous Notes * Telephone Encounter - Shahida Joshi - 09/30/2019 12:38 PM EST LMOM for Pt to rossy apt documented in this encounter Plan of Treatment Upcoming Encounters Date Type Department Care Team (Late st Contact Info) Description 05/28/2024 8:00 AM EDT Office Visit Hematology/Oncology at [address] [phone] Rodriguez Fowler MD [facility] [place] [address] Sherry Cedillo APRN [address] [place] [address] DR HEMATOLOGY AND ONCOLOGY [place], [place] [id number] 05/28/2024 8:30 AM EDT Infusion Hematology Oncology at [address] [phone] 05/28/2024 9:30 AM EDT Clinical Support Hematology/Oncology at [address] [phone] Leah Rose, RD [facility] DR [place]ATOLOGY [place] [address] documented as of this encounter Visit Diagnoses Not on filedocumented in this encounter Care Teams Carton Packaging Machine Operator Relationship Specialty Start Date End Date Dariana Méndez MD [address] [place] [address] PCP - General Family Medicine 07/16/16 10/29/22 documented as of this encounter
--- OUTSIDE RECORDS SUMMARY | 2024-05-27 18:03 | XMS_ITS | Encounter Summary ---
Author Organization [facility] [place] [address] Care Team Providers Care Maid Housekeeper Name Role Phone Dariana Méndez MD Primary Care Provider [phone] Encounter Details Date Type Department Care Team (Late Contact Info) Description 07/17/2016 Telephone Neph[place] [phone] Deena Wells Social History Tobacco Use Types [...] AM EDT Office Visit Hematology/Oncology at [address] [phone] Rodriguez Fowler MD [facility] [place] [address] Sherry Cedillo APRN [address] [place] [address] DR HEMATOLOGY AND ONCOLOGY [place], [place] [id number] 05/28/2024 8:30 AM EDT Infusion Hematology Oncology at [address] [phone] 05/28/2024 9:30 AM EDT Clinical Support Hematology/Oncology at [address] [phone] Leah Rose, RD [facility] DR [place] [address] documented as of this encounter Visit Diagnoses Not on filedocumented in this encounter Care Teams Maid Housekeeper Relationship Specialty Start Date End Date Dariana Méndez MD [address] [place] [address] PCP - General Family Medicine 07/16/16 10/29/22 documented as of this encounter
--- OUTSIDE RECORDS SUMMARY | 2024-05-27 18:03 | XMS_ITS | Encounter Summary ---
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.] 2:07 PM EDT) Neutrophil % 65.4 % [facility] Neutrophil Absolute 5.96 1.70 - 6.10 x10(3)/[facility] Lymph % 26.1 % [facility] Lymphocytes Abs 2.4 0.9 - 3.2 x10(3)/[facility] Monocyte % 5.4 % [facility] Monocyte Abs 0.5 0.3 - 0.9 x10(3)/[facility] Eos % 2.2 % [facility] Eosinophils Abs 0.2 0.0 - 0.4 x10(3)/[facility] Basophil % 0.7 % [facility] Baso Absolute 0.1 0.0 - 0.1 x10(3)/[facility] Immature Gran % 0.20 % [facility] Comment: Immature granulocytes(IG's)percentage and absolute count will include metamyelocytes, myelocytes, and promyelocytes. Blood smears from CBCs yielding IG's will be scanned manually for concordance. If this scan disagrees with the automated IG or if promyelocytes are noted, a manual differential will be performed. Immature Gran Absolute 0.02 0.00 - 0.04 x10(3)/[facility] Blood 12/12/2021 2:07 PM EDT 12/12/2021 2:14 PM EDT Narrative Resulting Agency Comment Spec In Lab Faye Maxwell MD HEMATOLOGY ORDERABLE S [facility] [place] [address] * (ABNORMAL) Hemogram (12/12/2021 2:07 PM EDT) White Blood Cell 9.1 4.0 - 9.5 x10(3)/ L [facility] Red Blood Cell 6.34(H) 4.58 - 5.54 x10(6)/[facility] Hemoglobin 16.0 13.7 - 16.5 g/dL [facility] Hematocrit 48.3 40.5 - 48.5 % [facility] Mean Cell Volume 76.2(L) 82.9 - 93.1 fL [facility] Mean Cell Hemoglobin 25.2(L) 27.5 - 32.1 pg [facility] Mean Cell Hemoglobin Concentration 33.1 32.0 - 35.7 g/dL [facility] Platelet 206 145 - 357 x10(3)/mc L [facility] RDW Standard Deviation 38.4 36.0 - 45.0 fL [facility] RDW coefficient of variation 14.4(H) 11.4 - 13.8 % [facility] Mean Platelet Volume 10.0 7.6 - 12.9 fL [facility] NRBC% auto 0.0 % [facility] NRBC Absolute 0.000 0.000 - 0.000 x10(3)/mc L [facility] Blood 12/12/2021 2:07 PM EDT 12/12/2021 2:14 PM EDT Narrative Resulting Agency Comment Spec In Lab Faye Maxwell MD HEMATOLOGY ORDERABLE S [facility] [place] [address] * Basic Metabolic Panel (non-fasting) (12/12/2021 2:07 PM EDT) Glucose 140 65 - 199 mg/dL [facility] Comment:Diabetes: >=200 mg/d L plus symptoms Blood Urea Nitrogen 10 10 - 20 mg/dL [facility] Creatinine 0.98 0.80 - 1.50 mg/dL [facility] Sodium 139 135 - 145 mmol/L [facility] Potassium 4.1 3.5 - 5.0 mmol/L [facility] Comment: Please note: ??Patients with WBC >100,000 may have falsely elevated Potassium levels. ??For accurate Potassium quantification in these patients send serum separator tube (gold top) for subsequent determinations. ??Contact the Clinical Chemistry Laboratory if there are any questions. Chloride 99 98 - 107 mmol/L [facility] Carbon Dioxide 26 22 - 31 mmol/L [facility] Anion Gap 14 5 - 15 mmol/L [facility] Calcium 9.1 8.5 - 10.5 mg/dL [facility] Est Glomerular Filtration Rate 92 >=60 mL/min/1. 73 m?? [facility] Comment: This patient? s estimated [...] In Lab Faye Maxwell MD CHEMISTRY ORDERABLES [facility] [place] [address] * (ABNORMAL) PTH (12/12/2021 2:07 PM EDT) Parathyroid Hormone 69(H) 15 - 65 pg/mL [facility] Blood 12/12/2021 2:07 PM EDT 12/12/2021 2:14 PM EDT Narrative Resulting Agency Comment Spec In Lab Faye Maxwell MD CHEMISTRY ORDERABLES [facility] [place] [address] * Albumin Level (12/12/2021 2:07 PM EDT) Albumin 4.1 3.2 - 5.2 g/dL [facility] Blood 12/12/2021 2:07 PM EDT 12/12/2021 2:14 PM EDT Narrative Resulting Agency Comment Spec In Lab Faye Maxwell MD CHEMISTRY ORDERABLES Performing Organization Address City/[facility]/ZIP Co de Phone Number [facility] [place] [address] * Uric acid (12/12/2021 2:07 PM EDT) Uric Acid 5.1 3.5 - 8.5 mg/dL [facility] Blood 12/12/2021 2:07 PM EDT 12/12/2021 2:14 PM EDT Narrative Resulting Agency Comment Spec In Lab Faye Maxwell MD CHEMISTRY ORDERABLES Performing Organization Address City/[facility]/ZIP Co de Phone Number [facility] [place] [address] * Phosphorus (12/12/2021 2:07 PM EDT) Phosphorus 3.0 2.5 - 4.5 mg/dL [facility] Blood 12/12/2021 2:07 PM EDT 12/12/2021 2:14 PM EDT Narrative Resulting Agency Comment Spec In Lab Faye Maxwell MD CHEMISTRY ORDERABLES Performing Organization Address City/[facility]/ZIP Co de Phone Number [facility] [place] [address] documented in this encounter Visit Diagnoses Diagnosis 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
--- OUTSIDE RECORDS SUMMARY | 2024-05-27 18:03 | XMS_ITS | Encounter Summary ---
Author Organization [facility] [place] [address] Care Team Providers Care Pier Master Name Role Phone Dariana Méndez MD Primary Care Provider [phone] Encounter Details Date Type Department Care Team (Latest Contact Info) Description 02/15/2021 10:00 AM EDT TH Visit (TeleHealth) [place] [address] Carlos Dawson MD [facility] [place] [place] [address] Type 2 diabetes mellitus with hyperglycemia, without [...] (creatinine) 2020 last cholesterol Panel: 2020 regular editor city visits- yes, recently special shoes: NO flu [...] AM EDT Office Visit Hematology/Oncology at [address] [phone] Rodriguez Fowler MD [facility] [place] [address] Sherry Cedillo APRN [address] [place] [address] DR HEMATOLOGY AND ONCOLOGY [place], [place] [phone] 05/28/2024 8:30 AM EDT Infusion Hematology Oncology at [address] [phone] 05/28/2024 9:30 AM EDT Clinical Support Hematology/Oncology at [address] [phone] [facility] HEMATOLOGY [place] [address] documented as of this encounter Visit Diagnoses Diagnosis Type 2 diabetes mellitus with hyperglycemia, without long-term current use of insulin Hypertension, unspecified type Proteinuria, unspecified type Obesity, unspecified classification, unspecified obesity type, unspecified whether serious comorbidity present 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
--- OUTSIDE RECORDS SUMMARY | 2024-05-27 18:04 | XMS_ITS | Encounter Summary ---
Author Organization [facility] Address [facility] [place] [address] Care Team Providers Care Insulation Board Back Tender Name Role Phone Olga Hoffman APRN Primary Care Provider [phone] Encounter Details Date Type Department Care Team (Late st Contact Info) Description 09/13/2008 Orders Only Neph[place] [address] Faye Maxwell MD [facility] [address] Social History Tobacco Use Types Packs/Day Years [...] AM EDT Office Visit Hematology/Oncology at [address] [phone] Rodriguez Fowler MD [facility] [place] [address] Sherry Cedillo APRN [address] [place] [address] [place] [address] 05/28/2024 8:30 AM EDT Infusion Hematology Oncology at [address] [phone] 05/28/2024 9:30 AM EDT Clinical Support Hematology/Oncology at [address] [phone] [facility] DR [place] [address] documented as of this encounter Procedures Procedure Name Priority Date/Time Associated Diagnosis Comments SURGICAL PATHOLOGY REPORT Routine 09/13/2008 11:25 AM EST documented in this encounter Results * Surgical Pathology Report (09/13/2008 11:25 AM EST) Surgical Pathology Report [id number] ? Location: The signing pathologist has (i) examined the relevant preparation(s) for the specimen(s) and (ii) rendered or confirmed the diagnosis(es). . ?Pathology Surgical Pathology Final Report Clinical Information Specimen Submitted: A - [place] - kidney, formalin B - [place] - kidney, saline C - [place] - kidney, glutaraldehyde left Clinical History: 32-yr-old [...] ?? Fibrinogen: ??Negative ?? Albumin: ??Negative ?? [place]: ?1+ finely granular peripheral staining ?? Lambda: [...] report in rendering the final pathologic diagnosis. [facility] 09/13/2008 11:2 5 AM EST Faye Maxwell MD PATHOLOGY/CYTOLOGY O [place] Performing Organization Address City/State/[facility] Co de Phone Number [facility] documented in this encounter Visit Diagnoses Not on filedocumented in this encounter Care Teams Insulation Board Back Tender Relationship Specialty Start Date End Date Olga Hoffman APRN [address] [place] [address] PCP - General Family Medicine 10/30/22 documented as of this encounter
--- OUTSIDE RECORDS SUMMARY | 2024-05-27 18:04 | XMS_ITS | Encounter Summary ---
Author Organization [facility] [place] [address] Care Team Providers Care Plow Shaker Name Role Phone JuanElke Alexa RUST Primary Care Provider [phone] Encounter Details Date Type Department Care Team (Late Contact Info) Description 01/31/2011 Orders Only Ne[place] [address] Faye Maxwell MD [facility] [place] [address] CKD (chronic kidney disease) stage 3, GFR [...] 8:00 AM EDT Office Visit Hematology/Oncology at [address] [phone] Rodriguez Fowler MD [facility] [place] [place] [address] Sherry Cedillo APRN [address] [place] [address] [place] [address] 05/28/2024 8:30 AM EDT Infusion Hematology Oncology at [address] [phone] 05/28/2024 9:30 AM EDT Clinical Support Hematology/Oncology at [address] [phone] Leah Rose, ARASH [facility] DR HEMATOLOGY [place] [address] documented as of this encounter Results * Phosphorus (02/14/2011 10:02 AM EDT) Pathologist [facility] Phosphorus 2.9 2.5 - 4.5 mg/dL [facility] [...] Metabolic Panel (non-fasting) (02/14/2011 10:02 AM EDT) Pathologist [facility] Glucose 93 60 - 199 mg/dL [facility]ER [...] Maxwell MD CHEMISTRY ORDERABLES Performing Organization Address City/State/[facility] Co de Phone Number [facility] MIGUEL * Albumin (02/14/2011 10:02 AM EDT) Albumin 4.1 3.2 - 5.2 gm/dL [facility] Blood specimen (specimen) 02/14/2011 10:02 AM EDT 02/14/2011 10:06 AM EDT Faye Maxwell MD CHEMISTRY ORDERABLES [facility] documented in this encounter Visit Diagnoses Diagnosis CKD (chronic kidney disease) stage 3, GFR 30-59 ml/min- Primary Chronic kidney disease, Stage III (moderate) Duodenal adenocarcinoma Malignant neoplasm of duodenum documented in this encounter Care Teams Plow Shaker Relationship Specialty Start Date End Date Elke Martinez APRN [address] [place] [address] PCP - General 08/07/10 03/03/16 documented as of this encounter
[2024-05-27 21:53] LABS: Anion Gap 7.6 mmol/L (3-11); BUN 11 mg/dL (7-18); CO2 29.4 mmol/L (21.0-32.0); Calcium 8.9 mg/dL (8.5-10.1); Chloride 102 mmol/L (98-107); Estimated GFR 92.26 (mL/min/1.73m2); Glucose 305 mg/dL (74-106); Potassium 4.3 mmol/L (3.5-5.1); Sodium 139 mmol/L (136-145)
== END 2024-05-27 17:49 | disposition home or self-care (01) ==
LOC: NCHCN 17:48
PROVIDERS: PCP Nurse Practitioner Family; Visit Provider Nurse Practitioner Family
DX: E10.65 Type 1 diabetes mellitus with hyperglycemia (principal)
CPT/HCPCS: 80048

== ENCOUNTER 2024-05-31 21:02 | Emergency (ER) | payer OTHER, SELFPAY ==
[2024-05-31] VITALS (23 sets, daily range): BP systolic 116–157; BP diastolic 85–101; PULSE 79–102; RESP 13–26; TEMP 37.2; O2SAT 95–99
--- NOTE | 2024-05-31 21:00 | RT.EKG_ITS ---
APPROVED REPORT Exam: Resting ECG Reason for Exam: weakness Patient Location: E HR:97 bpm ECG Measurements Heart Rate 97 AXIS OR 146 P 58 QRSd 92 QRS 70 QT 365 T 62 QTc 464 Conclusion Sinus rhythm 97 normal axis no stemi
--- NOTE | 2024-05-31 21:00 | DI.CT_ITS ---
Exam(s) CT ABDOMEN PELVIS W EXAM: CT ABDOMEN PELVIS W CLINICAL HISTORY: hx of whipple and abscess, pain, fever. TECHNIQUE: Imaging Protocol: Axial computed tomography images with coronal and sagittal reformatted images were created and reviewed CONTRAST MATERIAL: Intravenous: Omnipaque-350 100cc Oral: None COMPARISON: CT CT CHEST PE ABD PELVIS W from 03/24/2024 FINDINGS: VISUALIZED LUNG BASES: No nodules nor pleural effusions evident. No lung base infiltrates. 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 There is some mild postsurgical streaki ng in the anterior mesentery without evidence of free air nor discernible abscess. Stent is again no dotty in the pancreatic duct extending into the receiving jejunal loop. There is a small hypodense or cystic lesion in the pancreatic body-neck region adjacent to the stent, best seen on the coronal imag es (series 5/image 21), this measuring approximately 1 cm by 1 cm. Pancreatic duct is not dilated. There are moderately dilated jejunal loops measuring up to 3 cm size with transition point in left up per quadrant (series 5/image 14/coronal images) LIVER: There are no focal hepatic lesions evident. No dilated intrahepatic ducts and no evidence of pneumobilia GALLBLADDER/BILIARY: Gallbladder surgically absent PANCREAS: As above SPLEEN: Spleen is not enlarged. No obvious intrasplenic lesions. Splenic and portal veins are paten t. No evidence of splenic nor portal vein thrombosis nor thrombosis of the superior mesenteric vein and its branches. There is no gas within the portal venous system. ADRENALS: There are no significant adrenal masses. KIDNEYS:No cysts evident. No solid renal masses. No calculi nor hydronephrosis.. ABDOMINAL AORTA: Abdominal aorta is not enlarged. LYMPH NODES:There is no retroperitoneal nor paraaortic adenopathy. ABDOMINAL WALL: No evidence of significant anterior abdominal wall nor inguinal hernia. PELVIS: GI: No evidence of appendicitis.No evidence of sigmoid diverticulitis. LYMPH NODES: There is no intrapelvic nor inguinal adenopathy. REPRODUCTIVE: Prostate not an lung URINARY BLADDER: No calculi nor obvious masses evident OSSEOUS: No fractures and no significant osseous lesions. Bilateral pars defects at L5 level with mild anterolisthesis L5 upon S1. No significant disc space n arrowing at this level. IMPRESSION: 1. 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 There is some mild streaking in this region but the previously present fr ee fluid is no longer seen and there is no evidence of free air nor abscess. No free air. 2. Slightly prominent diameter jejunal loops in left side of the abdomen noted. Cannot exclude early developing small-bowel obstruction. Continued follow-up recommended Other findings as above. RADIATION DOSE DELIVERED: 835.8mGy.cm Total DLP DATA REPOSITORY: All CT scans at this facility are submitted to the National Radiology Data Registry (NRDR) Dose Index Registry (DIR) with the [employer] (ACR). RADIATION OPTIMIZATION: All CT scans at this facility use at least one of these dose optimization te chniques: automated exposure control; mA and/or kV adjustment per patient size (includes targeted exa ms where dose is matched to clinical indication); or iterative reconstruction.
--- OUTSIDE RECORDS SUMMARY | 2024-05-31 21:17 | XMS_ITS | Continuity of Care Document ---
Author Organization [facility] Address [address] [place] [address] Assessment Encounter Date Assessment Date Assessment LastModified by Organization Details LastModified Time 05/27/2024 05/27/2024 The total time devoted to today's encounter, including both the omyr-yw-bboy time with the patient and/or family/caregi charity and fmn-wzra-vv-f elida time I personally spent is 25 [...] Lab BMP, serum or plasma 2023 024 [facility] (Registration ), [address] [place] [address] [place], [address], 05/28/2024 10:49:31 Referral None recorded. Procedures None recorded. Surgeries None recorded. Imaging None recorded. Medication Orders None recorded. Patient TargetsNo targets recorded. Patient InstructionsNo instructions recorded. Reason for Referral Zoo Director Referral for Nodu le of subcutaneous tissue of left foot provider is wondering why this pt has not been contacted yet - resending Referring Physician: Olga Marcus, Family Medicine, Encounter Date: 09/23/2023 Sleep Medicine Referral for Obstructive sleep apnea syndrome Referring Physician: Olga Marcsu [facility], Encounter Date: 11/07/2023 Urologist Referral for Erect ile dysfunction Referring Physician: Olga Marcus [facility], Encounter Date: 11/07/2023 EGD Referral for Digestive s ystem finding Referring Physician: Olga Marcus [facility], Encounter Date: 11/07/2023 Plastic Surgeon Referral for Gynecomastia Referring Physician: Olga Marcus [facility], Encounter Date: 12/05/2023 Endocrinology Referral for T ype 2 diabetes mellitus without complication Referring Physician: Olga Marcus [facility], Encounter Date: 02/23/2024 Vascular Surgeon Referral fo r Cramp in lower limb Referring Physician: Olga Marcus [facility], Encounter Date: 02/23/2024 Echocardiographer Referral f or Type 2 diabetes mellitus without complication referral for Freestyle Lina 3 Referring Physician: Olga Marcus [facility], Encounter Date: 04/02/2024 Physical Therapist Referral for Pain of left shoulder joint Referring Physician: Olga Marcus [facility], Encounter Date: 04/20/2024 Results Created Date Observation Date Name Description Value Unit Range Abnormal Flag Note LastModifiedBy Organization Detail LastModifiedTime 05/31/2011/03/2022 imagi ng/di agnos tic resul t No observ ation record ed. [email or web address] Not Available 05/31 00:15:19 05/31/2009/24/2022 imagi ng/di agnos tic resul t No observ ation record ed. [email or web address] Not Available 05/31 00:15:20 05/31/20 24 09/23/2022 imagi ng/di agnos tic resul t No observ ation record ed. [email or web address] Not Available 05/31 00:16:21 05/31/20 24 11/03/2022 imagi ng/di agnos tic resul t No observ ation record ed. [email or web address] Not Available 05/31 00:16:22 05/31/20 24 08/12/2021 imagi ng/di agnos tic resul t No observ ation record ed. [email or web address] Not Available 05/31 00:16:59 05/31/20 24 12/05/2022 imagi ng/di agnos tic resul t No observ ation record ed. [email or web address] Not Available 05/31 00:17:00 05/31/20 24 08/10/2021 imagi ng/di agnos tic resul t No observ ation record ed. [email or web address] Not Available 05/31 00:17:03 05/31/20 24 08/12/2021 imagi ng/di agnos tic resul t No observ ation record ed. [email or web address] Not Available 05/31 00:17:04 05/31/20 24 09/23/2022 imagi ng/di agnos tic resul t No observ ation record ed. [email or web address] Not Available 05/31 00:17:57 Result Notes None recorded. Problems Name Problem SNOMED Code Status Onset Date Resolution Date Notes Provider Name and Address Organization Details Recorded Time [facility]asmyne laura [facility] 16878046 Active 2006 Alie dorsey [facility] 4 13:29:59 Nephroti c syndrome 40323375 Completed 200603/03/2007 Not Available [facility] 3 04:42:43 Chronic kidney disease stage 3 487531235 Active 2010 Alie dorsey [facility] 4 13:29:40 Obstruct kong sleep apnea syndrome 67127024 Active 2013 Alie dorsey [facility] 4 13:30:42 Anxiety 18681987 Active 2014 Alie dorsey [facility] 4 13:29:15 Type 2 diabetes mellitus without complica tion 802447924 Active 2015 [facility] 4 13:30:59 Obesity 310942678 Active 2015 [facility] 4 13:30:35 Edema 139463411 Active 2015 [facility] 4 13:29:50 Allergy to food 041703337 Active 2016 [facility] 4 13:29:10 Adult health examinat ion Active 2018 [facility] 4 13:29:06 Erectile dysfunct ion 084071006 Active 2018 [facility] 4 13:29:54 Neuropat hy due to type 2 diabetes mellitus 68878722048 9106 Active 2020 [facility] 4 13:30:25 Screenin g for malignan t neoplasm of colon Active 2020 [facility] 4 13:30:50 Digestiv e system finding 354592734 Active 2021 [facility] 4 13:29:44 Vitamin B deficien cy 86710499 Active 2021 [facility] 4 13:31:03 Pre-surg mirta evaluati on Completed 202106/01/2022 Problem Code: Z01.818; Problem Code Type: ICD-10; Not Available [facility] 3 04:42:45 Bilatera l hearing loss 59455190 Active 2021 Alieher Crowell [facility] 4 13:29:19 Venereal disease screenin g Completed 202108/24/2022 Problem Code: Z11.3; Problem Code Type: ICD-10; Not Available [facility] 3 04:42:45 Hypomagn esemia 584174035 Active 2022 [facility] 4 13:30:11 Secondar y polycyth emia 54737373 Active 2022 [facility] 4 13:30:54 Kidney stone 70111727 Active 2022 [facility] 4 13:30:16 History of polyp of colon 282110651 Active 2022 [facility] 4 13:30:07 Disorder of nasal sinus 2721288 Active 2022 OLGA MARCUS, [employer]MOKING [employer] CLE[employer] [address], [place], [address] , [facility] 4 08:08:16 Nonalcoh olic steatohe patitis 843624794 Active 2022 [facility] 4 13:30:32 Body mass index 30+ - obesity 107457979 Active 2022 [facility] 4 13:29:23 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 mellitus 508248527 Active 2022 [facility] 4 13:30:46 Nephroti c syndrome , diffuse membrano us glomerul onephrit is 037557634 Active 2022 [facility] 4 13:30:20 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 25490991316 00 Active 2022 Alie dorsey [facility] 4 13:30:03 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 60317076742 00 Completed 202004/10/2021 Problem Code: E11.621; Problem Code Type: ICD-10; Alie dorsey [facility] 4 13:30:03 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 40119022960 00 Completed 202007/25/2022 Problem Code: E11.621; Problem Code Type: ICD-10; Alie dorsey [facility] 4 13:30:03 Hypergly cemia due to type 2 diabetes mellitus 65398900875 9109 Completed 201608/15/2017 Problem Code: E11.65; Problem Code Type: ICD-10; Not Available [facility] 3 04:42:47 Phimosis 539469197 Completed 201704/29/2022 Problem Code: N47.1; Problem Code Type: ICD-10; Not Available [facility] 3 04:42:47 Snoring 76446714 Completed 201303/01/2016 Not Available [facility] 3 04:42:48 Imaging of abdomen abnormal 330216528 Completed 202212/20/2022 Problem Code: R93.5; Problem Code Type: ICD-10; Not Available [facility] 3 04:42:48 Adult health examinat ion Completed 201403/01/2016 Problem Code: Z00.00; Problem Code Type: ICD-10; Alie dorsey [facility]. 4 13:29:06 Obesity 011209867 Completed 200606/11/2023 Alie dorsey [facility] 4 13:30:35 Fatigue 47440279 Completed 201303/01/2016 Not Available [facility] 3 04:42:48 Acute upper respirat ory infectio n 11708447 Completed 202004/29/2022 Problem Code: J06.9; Problem Code Type: ICD-10; Not Available [facility] 3 04:42:49 Nausea 869440456 Completed 202212/20/2022 Problem Code: R11.0; Problem Code Type: ICD-10; Not Available [facility] 3 04:42:49 Type 2 diabetes mellitus without complica tion 029438357 Completed 202201/10/2023 Problem Code: E11.9; Problem Code Type: ICD-10; Alie dorsey [facility] 13:30:59 Dyssomni a 92403353 Completed 201303/01/2016 Problem Code: 780.59; Problem Code Type: ICD-9; Not Available [facility] 3 04:42:49 Acute bronchit is 44683761 Completed 201708/09/2019 Problem Code: J20.9; Problem Code Type: ICD-10; Not Available [facility] 3 04:42:49 Nausea and vomiting 79065744 Completed 202107/25/2022 Problem Code: R11.2; Problem Code Type: ICD-10; Not Available [facility] 3 04:42:50 Sleep apnea 33197196 Completed 201306/11/2023 Problem Code: 780.57; Problem Code Type: ICD-9; Not Available [facility] 3 04:42:50 Disturba nce of consciou sness 3490391 Completed 201303/01/2016 Problem Code: 780.09; Problem Code Type: ICD-9; Not Available [facility] 3 04:42:50 Acute sinusiti s 82302886 Completed 202004/10/2021 Problem Code: J01.90; Problem Code Type: ICD-10; Not Available [facility] 3 04:42:50 Balaniti s 27558122 Completed 201608/15/2017 Problem Code: N48.1; Problem Code Type: ICD-10; Not Available [facility] 3 04:42:51 Sleep disorder 90307501 Completed 201303/01/2016 Problem Code: 780.50; Problem Code Type: ICD-9; Not Available [facility] 3 04:42:51 Nodule of subcutan eous tissue of left foot 37272219773 642703 Active 2023 OLGA MARCUS APRN [address], [place], [address] , [facility] 4 08:13:06 Benign prostati c hyperpla mercy 821571038 Active 2023 Alie dorsey, [facility]. 4 13:31:06 Headache 31061314 Active 2023 OLGA MARCUS APRN [address], [place], [address] , [facility] 4 08:57:45 Gynecoma stia 7714084 Active 2023 Alie dorsey, [facility]. 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 4 13:31:10 Carcinom a of duodenum 256962578 Active 2023 EGD 01/06, biopsy at that time OLGA MARCUS APRN [address], [place], [address] , [facility]. 4 09:30:26 Pain of left shoulder joint 75264224521 123017 Active 2023 OLGA MARCUS APRN [address], [place], [address] , [facility] 4 09:14:45 Cramp in lower limb 422046005 Active 2023 OLGA MARCUS APRN [address], [place], [address] , [facility] 4 09:15:29 Pain in right hip joint 11592005700 9102 Active 2023 OLGA MARCUS APRN [address], [facility] [address] , [facility] 4 09:19:09 Prolonge d QT interval 392025253 Active 2023 OLGA MARCUS APRN [address], [facility] [address] , [facility] 4 09:53:55 Hypergly cemia due to type 1 diabetes mellitus 27002756785 9101 Active 2023 OLGA MARCUS APRN [address], [facility] [address] , [facility] 4 14:16:49 Notes:*Problem Name: Duodena l polyp *Problem Status: active *Comments: *Problem Code: K31.7 *Problem Code Type: ICD-10 *Note Date: 2022 Problem Notes None recorded. Procedures Surgical History Date Name Laterality Status Provider Name and Address Organization Details Recorded Time 4 IV insert completed Kinsey Oliveira RN null, [facility] 03/24/2024 15:58:08 4 endoscopy completed ARNALDO GOMEZ CMA null, [facility] 01/02/2024 15:34:11 Imaging Results None recorded. Procedure Notes None recorded. Medical Equipment None Reported. Allergies Allergen ID Allergen Name Allergen Category Reaction Reaction Severity Criticality Documentation Date Start Date Code Code System Note Provider Name and Address Organization Details Recorded Time 01130 Medicinal product containin g penicilli n and acting as antibacte rial agent (product) medicatio n other mild Not available 11/29/20232006 67365 05 SNOMED Swell ing of cole dorsey [facility]. 13:58:03 Medications Name Sig Start Date Stop Date Status Note LastModified by Organization Details LastModified Time Prescript ion - Renewal active Denied Furosemi de renewal, already done see previous Phone Note Not Available Not Available Not Available Prescript ion - Prior Authoriza tion Request active Not Available Not Available Not Available furosemid e 40 mg tablet TAKE ONE-HALF TABLET BY MOUTH TWICE A DAY active Not Available Not Available No t Available acetamino phen 325 mg tablet Take 2 tablets every 8 hours by oral route as needed. 2023 active Per [facility] [place] 04/01/24 Not Available Not Available [...] 150 mg capsule 05/27 completed Stopped per [facility] [place] [place] 04/01/24 Not Available Not Available [...] EVERY DAY NEEDED 05/27 completed Stopped per [facility] [place] 04/01/24 Not Available Not Available [...] a day by oral route. active Per [facility] [place] summary continue 04/01/24 Not Available Not [...] MOUTH EVERY DAY 04/23 completed Stopped per [facility] [place] summary 04/01/24 Not Available Not Available Not Available Farxiga 5 mg tablet TAKE ONE TABLET BY MOUTH EVERY DAY 09/23 completed Not Available Not Available Not Available Levemir FlexTouch U-100 Insulin 100 unit/mL (3 mL) subcutane ous pen inject 10-20 units sub Q at bedtime increase by 5 units every 3 days until fasting glucose is less than 160 05/30/ 2017 03/30 /2021 completed Not Available Not Available Not Available [...] Available No t Available FreeStyle Lina 3 [place] USE DIRECTED active Not Available Not Available No t Available Vitals Date Recorded Body height Body mass index (BMI) Body weight Body temperature Oxygen saturation Oxygen saturation in Arterial blood by Pulse oximetry Heart rate Systolic blood pressure Diastolic blood pressure Provider Name and Address Organization Details Last Updated DateTime 4 186.69 cm 34.4 kg/m2 885743. 19 g 97 [degF] 97 % 97 % 102 /min 140 mm[Hg] 90 mm[Hg] ARNALDO GOMEZ CMA [facility] 4 13:44:52 Date Recorded Systolic blood pressure Diastolic blood pressure Provider Name and Address Organization Details Last Updated DateTime 05/27/2024 132 mm[Hg] 82 mm[Hg] [address], [place], [address], [facility] 05/27/2024 14:07:58 Social History Question Answer Notes LastModified by Organizat ion Details LastModified Time Tobacco Smoking Status Never Smoker ARNALDO GOMEZBRI null, [facility] 12/05/2023 08:46:50 What Was The Date Of [...] virus, trivalent, PF 05/27/2024 completed OLGA MARCUS, SMOKING [employer]ER [address], [place], [address], [facility] 05/27/2024 14:49:23 Td (adult), 2 Lf tetanus toxoid, preservative free, adsorbed 04/22/2017 completed Not Available [facility] 07/25/2023 06:32:54 Tdap 02/27/2007 completed Not Available [facility] 06:32:54 Influenza, split virus, quadrivalent, PF 09/21/2020 completed Not Available [facility] 07/25/2023 06:32:54 Influenza, split virus, quadrivalent, PF 06/19/2021 completed Not Available [facility] 07/25/2023 06:32:54 Influenza, split virus, quadrivalent, PF 08/02/2019 completed Not Available [facility] 07/25/2023 06:32:54 COVID-19 vaccine, vector-nr, rS-Ad26, PF, 0.5 mL 01/19/2021 completed Not Available [facility] 07/25/2023 06:32:54 pneumococcal polysaccharide PPV23 09/21/2020 completed Not Available [facility] 2022 06:32:54 influenza, unspecified formulation 07/05/2016 completed Not Available [facility] 07/25/2023 06:32:54 influenza, unspecified formulation 07/16/2017 completed Not Available [facility] 07/25/2023 06:32:54 Influenza, split virus, quadrivalent, PF 06/17/2023 completed Not Available [facility] 09/26/2023 05:33:26 Past Encounters Encounter ID Performer Location Encounter Start Date Encounter Closed Date Diagnosis/Indication Diagnosis SNOMED-CT Code Diagnosis ICD10 Code [id number] OLGA MARCUS APRN [address] [address] 05/27/2024 13:25:36 05/27/2024 14:46:21 Hyperglycemia due to type 1 diabetes mellitus 3110407889 16724 E10.65 Active or passive immunization 422092498 Z23 Health Concerns Section Related Observation LastModified by Organization Detai ls LastModified Time None Recorded Concern Status LastModified by Organization Details LastModified Time None Recorded Payers Encounter Date Sequence Insurance Name Policy Number Policy Loo Covered Member ID Loo Member ID Guarantor Name 05/27/2024 1 [facility] [id number] Charles Hernandez [id number] Charles Nick Notes Date Note Type Note [...] this. Infusion will be over 48 hours. FMLA runs out on 06.09.24. Worries about finances. Boss is supportive. only has vacation time, not sure how much but feels about 2 weeks or less. 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 OLGA MARCUS, [employer]MOKING [employer] [address], [place], [address], [facility], [facility]. 05/27/2024 14:54:11
--- OUTSIDE RECORDS SUMMARY | 2024-05-31 21:17 | XMS_ITS | Data Portability ---
Author Organization [place] - [facility], [facility] [place] [address] Assessment Encounter Date Assessment Date Assessment LastModified [...] devoted to today's encounter, including both the ewjc-bh-lvke time with the patient and/or family/caregiv er and odd-ksex-bw-fa ce time I personally spent is 40 minutes. Flu vaccine: current Td: current- due 2026 PCV20: PPSV23 in 2020 Shingrix: n/a RSV: n/a CRC screening: colo last 12.04., tubular adenoma. Follow-up in 1 Months. Call or RTO sooner if needs arise. Not available 04/23/2024 12:47:37 05/27/2024 05/27/2024 The total time devoted to today's encounter, including both the xozd-hv-lbhp time with the patient and/or family/caregiv er and ncv-pobv-av-fa ce time I personally spent is 25 minutes. [...] n (Hb), fingersti ck, blood 2023 024 [facility], [address] [place] [address], [id number], 03/24/2024 16:03:13 hemoglobi n A1C, fingersti ck [email or web address], [address] [place] [address], [id number], 04/23/2024 13:02:39 BMP, serum or plasma 2023 024 [facility] (Registration ), [address] [place] [address], [id number], 05/28/2024 10:49:31 Referral None recorded. Procedures IV infusion, hydration , 31-60 min (PROC) 2023 024 [email or web address] Not available 03/24/2024 16:03:11 Surgeries None recorded. Imaging None recorded. Medication Orders None recorded. Patient TargetsNo targets recorded. Patient Instructions Encounter Date Encounter Id Patient Instructions Last Modified By Organization Details Last Modified Time 04/23/2024 [id number] Increase semglee to 13 units daily for 7 days, then if sugar still greater than 120, increase to 16 units. Not available 04/23/2024 12:39:31 Reason for Referral Etcher Machine Referral for Nodu le of subcutaneous tissue of left foot provider is wondering why this pt has not been contacted yet - resending Referring Physician: Olga Marcus [facility], Encounter Date: 09/23/2023 Sleep Medicine Referral for Obstructive sleep apnea syndrome Referring Physician: Olga Marcus [facility], Encounter Date: 11/07/2023 Urologist Referral for Erect ile dysfunction Referring Physician: Olga Marcus [facility], Encounter Date: 11/07/2023 EGD Referral for Digestive s ystem finding Referring Physician: Olga Marcus [facility], Encounter Date: 11/07/2023 Plastic Surgeon Referral for Gynecomastia Referring Physician: Olga Marcus [facility], Encounter Date: 12/05/2023 Endocrinology Referral for T ype 2 diabetes mellitus without complication Referring Physician: Olga Marcus [facility], Encounter Date: 02/23/2024 Vascular Surgeon Referral fo r Cramp in lower limb Referring Physician: Olga Marcus [facility], Encounter Date: 02/23/2024 Pump Servicer Referral f or Type 2 diabetes mellitus without complication referral for Freestyle Lina 3 Referring Physician: Olga Marcus [facility], Encounter Date: 04/02/2024 Physical Therapist Referral for Pain of left shoulder joint Referring Physician: Olga Marcus [facility], Encounter Date: 04/20/2024 Results Created Date Observation Date Name Description Value Unit Range Abnormal Flag Note LastModifiedBy Organization Detail LastModifiedTime 02/24/20 24 02/24/2024 GRAM STAIN gram stain [...] Vanco mycin S <=0.5 F Not Available [facility] [address] [place], [address] 03/03/2024 15:41:49 02/24/20 24 02/29/2024 WOUND AEROB [...] GENE BELOW Day 2 Resul t ISOLA EGNE BELOW Day 3 Resul t ISOLA GENE [...] - MODER ATE GROWT H Not Available [address] [place], [address] 03/03/2024 15:41:47 02/24/20 24 02/26/2024 ANAER OBIC CULTU RE anaerobic culture Anaer obic Cultu re 02/25 PRELI MINAR Y REPOR T: No anaer obic growt h in 2 days. Not Available [address] [place], [address] 02/26/2024 12:18:00 02/24/20 24 02/26/2024 ANAER OBIC CULTU RE anaerobic culture Anaer obic Cultu re 02/25 PRELI MINAR Y REPOR T: No anaer obic growt h in 2 days. Not Available [address] [place], [address] 02/28/2024 14:10:27 02/24/20 24 03/01/2024 ANAER OBIC CULTU RE anaerobic culture O:ANG NR (ORGA NISM ID: 1.1) - Anaer obic gram negat kiran denilson Anaer obic Cultu re (ORGA NISM ID: 1.1) - GROWT H(REP ORT) (ORGA NISM ID: 1.1) - RARE GROWT H Not Available [address] [place], [address] 03/01/2024 12:12:05 02/24/20 24 03/03/2024 ANAER OBIC CULTU RE anaerobic culture O:ANG NR (ORGA NISM ID: 1.1) - Anaer obic gram negat kiran denilson Anaer obic Cultu re (ORGA NISM ID: 1.1) - GROWT H(REP ORT) (ORGA NISM ID: 1.1) - RARE GROWT H Not Available [address] [place], [address] 03/03/2024 15:39:46 02/26/20 24 02/26/2024 COMPR EHENS KIRAN METAB OLIC PANEL calcium 9.2 mg/dL 8.5-10 .1 normal Not Available [address] [place], [address] 02/26/2024 12:45:03 02/26/20 24 02/26/2024 COMPR EHENS KIRAN METAB OLIC PANEL glucose 275 mg/dL 74-106 high Not Available Debra floyd [address] [place], [address] 02/26/2024 12:45:03 02/26/20 24 02/26/2024 COMPR EHENS KIRAN METAB OLIC PANEL BUN 14 mg/dL 7-18 normal Not Available Debra floyd [address] [place], [address] 02/26/2024 12:45:03 02/26/20 24 02/26/2024 COMPR EHENS KIRAN METAB OLIC PANEL creatinine 1.1 mg/dL 0.70-1 .30 normal Not Available [address] [place], [address] 02/26/2024 12:45:03 02/26/20 24 02/26/2024 COMPR EHENS [...] young er-ag ed adult s. Not Available [address] [place], [address] 02/26/2024 12:45:03 02/26/20 24 02/26/2024 COMPR EHENS KIRAN METAB OLIC PANEL total protein 7.7 g/dL 6.4-8. 2 normal Not Available [address] [place], [address] 02/26/2024 12:45:03 02/26/20 24 02/26/2024 COMPR EHENS KIRAN METAB OLIC PANEL albumin 3.5 g/dL 3.4-5. 0 normal Not Available [address] [place], [address] 02/26/2024 12:45:03 02/26/20 24 02/26/2024 COMPR EHENS KIRAN METAB OLIC PANEL bilirubin, total 0.3 mg/dL 0.2-1. 0 normal Not Available [address] [place], [address] 02/26/2024 12:45:03 02/26/20 24 02/26/2024 COMPR EHENS KIRAN METAB OLIC PANEL alk phos 104 U/L 46-116 normal Not Available [address] [place], [address] 02/26/2024 12:45:03 02/26/20 24 02/26/2024 COMPR EHENS KIRAN METAB OLIC PANEL sodium 135 mmol/ L 136-14 5 low Not Available [address] [place], [address] 02/26/2024 12:45:03 02/26/20 24 02/26/2024 COMPR EHENS KIRAN METAB OLIC PANEL potassium 3.7 mmol/ L 3.5-5. 1 normal Not Available [address] [place], [address] 02/26/2024 12:45:03 02/26/20 24 02/26/2024 COMPR EHENS KIRAN METAB OLIC PANEL chloride 98 mmol/ L 98-107 normal Not Available [address] [place], [address] 02/26/2024 12:45:03 02/26/20 24 02/26/2024 COMPR EHENS KIRAN METAB OLIC PANEL CO2 31.2 mmol/ L 21.0-3 2.0 normal Not Available [address] [place], [address] 02/26/2024 12:45:03 02/26/20 24 02/26/2024 COMPR EHENS KIRAN METAB OLIC PANEL anion gap 5.8 mmol/ L 3-11 normal Not Available [address] [place], [address] 02/26/2024 12:45:03 02/26/20 24 02/26/2024 COMPR EHENS KIRAN METAB OLIC PANEL AST 16 U/L 15-37 normal Not Available Debra floyd [address] [place], [address] 02/26/2024 12:45:03 02/26/20 24 02/26/2024 COMPR EHENS KIRAN METAB OLIC PANEL ALT 36 U/L 16-63 normal Not Available Debra floyd [address] [place], [address] 02/26/2024 12:45:03 02/26/20 24 02/26/2024 ROSALIND TIN ferritin 35 NG/mL 26-388 normal Not Available [address] [place], [address] 02/26/2024 12:45:04 02/26/20 24 02/26/2024 ROSALIND TIN ferritin 35 NG/mL 26-388 normal Not Available [address] [place], [address] 02/26/2024 15:30:37 02/26/20 24 02/26/2024 CEA cea [...] perfo rmed or refer red by [facility] [address] [place] [address] Not Available [address] [place], [address] 02/27/2024 09:37:25 03/24/20 24 03/24/2024 LACTA TE lactate 2.0 mmol/ L 0.6-1. 4 high Not Available [address] [place], [address] 03/24/2024 15:26:58 03/24/20 24 03/24/2024 VENOU S BLOOD GAS pH (venous) 7.16 7.31-7 .41 critical low Criti johnie value pH repor dotty to and readb ack from CINTHYA العلي [facility] at 1524 03/24 by LAB.M OOL Not Available [address] [place], [address] 03/24/2024 15:28:58 03/24/20 24 03/24/2024 VENOU S BLOOD GAS pCO2 (venous) 33 mmHg 41-51 low Not Available [address] [place], [address] 03/24/2024 15:28:58 03/24/20 24 03/24/2024 VENOU S BLOOD GAS pO2 (venous) 42 mmHg Not Available [address] [place], [address] 03/24/2024 15:28:58 03/24/20 24 03/24/2024 VENOU S BLOOD GAS TCO2 (venous) 11 mmol/ L 24-29 low Not Available [address] [place], [address] 03/24/2024 15:28:58 03/24/20 24 03/24/2024 VENOU S BLOOD GAS HCO3 (venous) 12 mmol/ L 23-28 low Not Available [address] [place], [address] 03/24/2024 15:28:58 03/24/20 24 03/24/2024 VENOU S BLOOD GAS BE (venous) -17 mmol/ L -2-3 low Not Available [address] [place], [address] 03/24/2024 15:28:58 03/24/20 24 03/24/2024 VENOU S BLOOD GAS O2 sat (venous) 70 % Not Available [address] [place], [address] 03/24/2024 15:28:58 03/24/20 24 03/24/2024 COMPL ETE BLOOD COUNT W/DIF F WBC 13.73 10_3/ uL 4.4-10 .8 high Not Available [facility] (Registration ) [address] [place] [address] [place], [address], 03/24/2024 15:29:00 03/24/20 24 03/24/2024 COMPL ETE BLOOD COUNT W/DIF F RBC 6.69 10_6/ uL 4.36-5 .78 high Not Available [facility] (Registration ) [address] [place] [address] [place], [address], 03/24/2024 15:29:00 03/24/20 24 03/24/2024 COMPL ETE BLOOD COUNT W/DIF F HGB 16.2 g/dL 13.5-1 7.5 normal Not Available [facility] (Registration ) [address] [place] [address] [place], [address], 03/24/2024 15:29:00 03/24/20 24 03/24/2024 COMPL ETE BLOOD COUNT W/DIF F HCT 50.7 % 40.0-5 0.0 high Not Available [facility] (Registration ) [address] [place] [address] [place], [address], 03/24/2024 15:29:00 03/24/20 24 03/24/2024 COMPL ETE BLOOD COUNT W/DIF F MCV 76 fL 80-95 low Not Available [facility] (Registration ) [address] [place] [address] [place], [address], 03/24/2024 15:29:00 03/24/20 24 03/24/2024 COMPL ETE BLOOD COUNT W/DIF F MCH 24.2 pg 27.0-3 3.0 low Not Available [facility] (Registration ) [address] [place] [address] [place], [address], 03/24/2024 15:29:00 03/24/20 24 03/24/2024 COMPL ETE BLOOD COUNT W/DIF F MCHC 32.0 % 32.0-3 6.0 normal Not Available [facility] (Registration ) [address] [place] [address] [place], [address], 03/24/2024 15:29:00 03/24/20 24 03/24/2024 COMPL ETE BLOOD COUNT W/DIF F RDW 17.4 % 11.8-1 4.1 high Not Available [facility] (Registration ) [address] [place] [address] [place], [address], 03/24/2024 15:29:00 03/24/20 24 03/24/2024 COMPL ETE BLOOD COUNT W/DIF F platelet count 420 10_3/ uL 130-40 0 high Not Available [facility] (Registration ) [address] [place] [address] [place], [address], 03/24/2024 15:29:00 03/24/20 24 03/24/2024 COMPL ETE BLOOD COUNT W/DIF F MPV 9.8 fL 8.0-11 .0 normal Not Available [facility] (Registration ) [address] [place] [address] [place], [address], 03/24/2024 15:29:00 03/24/20 24 03/24/2024 COMPL ETE BLOOD COUNT W/DIF F neutrophils % 84.6 % Not Available [facility] (Registration ) [address] [place] [address] [place], [address], 03/24/2024 15:29:00 03/24/20 24 03/24/2024 COMPL ETE BLOOD COUNT W/DIF F lymphocytes % 7.6 % Not Available [facility] (Registration ) [address] [place] [address] [place], [address], 03/24/2024 15:29:00 03/24/20 24 03/24/2024 COMPL ETE BLOOD COUNT W/DIF F monocytes % 6.3 % Not Available [facility] (Registration ) [address] [place] [address] Dr, [place], [address], 03/24/2024 15:29:00 03/24/20 24 03/24/2024 COMPL ETE BLOOD COUNT W/DIF F eosinophils % 0.2 % Not Available [facility] (Registration ) [address] [place] [address] [place], [address], 03/24/2024 15:29:00 03/24/20 24 03/24/2024 COMPL ETE BLOOD COUNT W/DIF F basophils % 0.7 % Not Available [facility] (Registration ) [address] [place] [address] [place], [address], 03/24/2024 15:29:00 03/24/20 24 03/24/2024 COMPL ETE BLOOD COUNT W/DIF F immature grans % 0.6 % Not Available [facility] (Registration ) [address] [place] [address] [place], [address], 03/24/2024 15:29:00 03/24/20 24 03/24/2024 COMPL ETE BLOOD COUNT W/DIF F nucleated RBC 0.0 % 0.0-0. 3 normal Not Available [facility] (Registration ) [address] [place] [address] [place], [address], 03/24/2024 15:29:00 03/24/20 24 03/24/2024 COMPL ETE BLOOD COUNT W/DIF F absolute neutrophil count 11.62 10_3/ uL 1.2-6. 7 high Not Available [facility] (Registration ) [address] [place] [address] [place], [address], 03/24/2024 15:29:00 03/24/20 24 03/24/2024 COMPL ETE BLOOD COUNT W/DIF F absolute lymphocyte count 1.04 10_3/ uL 1.2-3. 4 low Not Available [facility] (Registration ) [address] [place] [address] [place], [address], 03/24/2024 15:29:00 03/24/20 24 03/24/2024 COMPL ETE BLOOD COUNT W/DIF F absolute monocyte count 0.86 10_3/ uL 0.1-0. 8 high Not Available [facility] (Registration ) [address] [place] [address] [place], [address], 03/24/2024 15:29:00 03/24/20 24 03/24/2024 COMPL ETE BLOOD COUNT W/DIF F absolute eosinophil count 0.03 10_3/ uL 0.0-0. 7 normal Not Available [facility] (Registration ) [address] [place] [address] [place], [address], 03/24/2024 15:29:00 03/24/20 24 03/24/2024 COMPL ETE BLOOD COUNT W/DIF F absolute basophil count 0.10 10_3/ uL 0.0-0. 2 normal Not Available [facility] (Registration ) [address] [place] [address] [place], [address], 03/24/2024 15:29:00 03/24/20 24 03/24/2024 COMPR EHENS KIRAN METAB OLIC PANEL calcium 8.9 mg/dL 8.5-10 .1 normal Not Available [address] [place], [address] 03/24/2024 16:05:07 03/24/20 24 03/24/2024 COMPR EHENS KIRAN METAB OLIC PANEL glucose 198 mg/dL 74-106 high Not Available Debra floyd [address] [place], [address] 03/24/2024 16:05:07 03/24/20 24 03/24/2024 COMPR EHENS KIRAN METAB OLIC PANEL BUN 14 mg/dL 7-18 normal Not Available Debra floyd [address] [place], [address] 03/24/2024 16:05:07 03/24/20 24 03/24/2024 COMPR EHENS KIRAN METAB OLIC PANEL creatinine 1.5 mg/dL 0.70-1 .30 high Not Available [address] [place], [address] 03/24/2024 16:05:07 07/10/20 24 03/24/2024 COMPR EHENS KIRAN METAB OLIC [...] young er-ag ed adult s. Not Available [address] [place], [address] 03/24/2024 16:05:07 03/24/20 24 03/24/2024 COMPR EHENS KIRAN METAB OLIC PANEL total protein 7.8 g/dL 6.4-8. 2 normal Not Available [address] [place], [address] 03/24/2024 16:05:07 03/24/20 24 03/24/2024 COMPR EHENS KIRAN METAB OLIC PANEL albumin 3.0 g/dL 3.4-5. 0 low Not Available [address] [place], [address] 03/24/2024 16:05:07 03/24/20 24 03/24/2024 COMPR EHENS KIRAN METAB OLIC PANEL bilirubin, total 0.52 mg/dL 0.2-1. 0 normal Not Available [address] [place], [address] 03/24/2024 16:05:07 03/24/20 24 03/24/2024 COMPR EHENS KIRAN METAB OLIC PANEL alk phos 94 U/L 46-116 normal Not Available [address] [place], [address] 03/24/2024 16:05:07 03/24/20 24 03/24/2024 COMPR EHENS KIRAN METAB OLIC PANEL sodium 137 mmol/ L 136-14 5 normal Not Available [address] [place], [address] 03/24/2024 16:05:07 03/24/20 24 03/24/2024 COMPR EHENS KIRAN METAB OLIC PANEL potassium 3.4 mmol/ L 3.5-5. 1 low Not Available [address] [place], [address] 03/24/2024 16:05:07 03/24/20 24 03/24/2024 COMPR EHENS KIRAN METAB OLIC PANEL chloride 99 mmol/ L 98-107 normal Not Available [address] [place], [address] 03/24/2024 16:05:07 03/24/20 24 03/24/2024 COMPR EHENS KIRAN METAB OLIC PANEL CO2 14.3 mmol/ L 21.0-3 2.0 low Not Available [address] [place], [address] 03/24/2024 16:05:07 03/24/20 24 03/24/2024 COMPR EHENS KIRAN METAB OLIC PANEL anion gap 23.7 mmol/ L 3-11 high Not Available [address] [place], [address] 03/24/2024 16:05:07 03/24/20 24 03/24/2024 COMPR EHENS KIRAN METAB OLIC PANEL AST 13 U/L 15-37 low Not Available Debra floyd [address] [place], [address] 03/24/2024 16:05:07 03/24/20 24 03/24/2024 COMPR EHENS KIRAN METAB OLIC PANEL ALT 23 U/L 16-63 normal Not Available Debra floyd [address] [place], [address] 03/24/2024 16:05:07 03/24/20 24 03/24/2024 TSH (W/RE F FT4) TSH (w/ref FT4) 1.10 uIU/m L 0.36-3 .74 normal Not Available [address] [place], [address] 03/24/2024 16:05:07 03/24/20 24 03/24/2024 LIPAS E lipase 56 U/L 16-77 normal Not Available Debra floyd [address] [place], [address] 03/24/2024 16:05:08 03/24/20 24 03/24/2024 TROPO ALLA I troponin I < 50 NG/L < or =60 Not Available [address] [place], [address] 03/24/2024 16:05:08 03/24/20 24 03/24/2024 NT-KS OBNP nt-probnp 20 pg/mL <300 NT-pr oBNP value s <300 pg/mL have a 98% negat kiran predi ctive value for exclu ding acute conge stive heart failu re(CH F). NOTE: Supra -phys iolog ic doses of Bioti n(B7) may cause false negat kiran resul ts. Not Available [facility] (Registration ) [address] [place] [address] [place], [address], 03/24/2024 16:05:09 03/24/20 24 03/24/2024 PROTH ROMBI N TIME prothrombin time 11.6 sec 9.1-11 .1 high Not Available [address] [place], [address] 03/24/2024 16:47:19 03/24/20 24 03/24/2024 PROTH ROMBI N TIME INR 1.2 0.9-1. 1 high Recom som d INR thera peuti c range s for orall y admin ister ed drugs are as follo ws: -Lev dard Inten sity 2.0 to 3.0 -High er Inten sity 3.0 to 4.5 Not Available [address] [place], [address] 03/24/2024 16:47:19 03/24/20 24 03/24/2024 PTT ACTIV ATED PTT activated 30.7 sec 23.6-3 2.8 normal Hepar in Thera peuti c Range for PTT = 52-84 secon ds New Hepar in Thera peuti c Range 10/21 Not Available [address] [place], [address] 03/24/2024 16:47:19 03/24/20 24 03/24/2024 COVID /FLU/ RSV PCR source DEVONTE MENJIVAR Not Available [address] [place], [address] 03/24/2024 17:31:27 03/24/20 24 03/24/2024 COVID /FLU/ [...] tion of nucle ic acid from the 2018 novel coron a virus (2018nCoV ), influ [...] detec tion and/o r diagn osis of nCo under secti on 564(b )(1) of Act, [...] ry, and epide miolo gical infor matio n. Testi ng perfo rmed at [facility] (CLIA #[id number]) on the eJamming id GeneX pert. Not Available [address] [place], [address] 03/24/2024 17:31:27 03/24/20 24 03/24/2024 COVID /FLU/ RSV PCR influenza A PCR Negati ve negati ve Not Available [address] [place], [address] 03/24/2024 17:31:27 03/24/20 24 03/24/2024 COVID /FLU/ RSV PCR influenza B PCR Negati ve negati ve Not Available [address] [place], [address] 03/24/2024 17:31:27 03/24/20 24 03/24/2024 COVID /FLU/ RSV PCR RSV PCR Negati ve negati ve Not Available [address] [place], [address] 03/24/2024 17:31:27 03/24/20 24 03/24/2024 COMPR EHENS KIRAN METAB OLIC PANEL calcium 9.2 mg/dL 8.5-10 .1 normal Not Available [address] [place], [address] 03/24/2024 18:05:32 03/24/20 24 03/24/2024 COMPR EHENS IKRAN METAB OLIC PANEL glucose 183 mg/dL 74-106 high Not Available Debra floyd [address] [place], [address] 03/24/2024 18:05:32 03/24/20 24 03/24/2024 COMPR EHENS KIRAN METAB OLIC PANEL BUN 12 mg/dL 7-18 normal Not Available Debra floyd [address] [place], [address] 03/24/2024 18:05:32 03/24/20 24 03/24/2024 COMPR EHENS KIRAN METAB OLIC PANEL creatinine 1.5 mg/dL 0.70-1 .30 high Not Available [address] [place], [address] 03/24/2024 18:05:32 03/24/20 24 03/24/2024 COMPR EHENS [...] young er-ag ed adult s. Not Available [address] [place], [address] 03/24/2024 18:05:32 03/24/20 24 03/24/2024 COMPR EHENS KIRAN METAB OLIC PANEL total protein 7.5 g/dL 6.4-8. 2 normal Not Available [address] [place], [address] 03/24/2024 18:05:32 03/24/20 24 03/24/2024 COMPR EHENS KIRAN METAB OLIC PANEL albumin 3.2 g/dL 3.4-5. 0 low Not Available [address] [place], [address] 03/24/2024 18:05:32 03/24/20 24 03/24/2024 COMPR EHENS KIRAN METAB OLIC PANEL bilirubin, total 0.49 mg/dL 0.2-1. 0 normal Not Available [address] [place], [address] 03/24/2024 18:05:32 03/24/20 24 03/24/2024 COMPR EHENS KIRAN METAB OLIC PANEL alk phos 102 U/L 46-116 normal Not Available [address] [place], [address] 03/24/2024 18:05:32 03/24/20 24 03/24/2024 COMPR EHENS KIRAN METAB OLIC PANEL sodium 139 mmol/ L 136-14 5 normal Not Available [address] [place], [address] 03/24/2024 18:05:32 03/24/20 24 03/24/2024 COMPR EHENS KIRAN METAB OLIC PANEL potassium 3.7 mmol/ L 3.5-5. 1 normal Not Available [address] [place], [address] 03/24/2024 18:05:32 03/24/20 24 03/24/2024 COMPR EHENS KIRAN METAB OLIC PANEL chloride 99 mmol/ L 98-107 normal Not Available [address] [place], [address] 03/24/2024 18:05:32 03/24/20 24 03/24/2024 COMPR EHENS KIRAN METAB OLIC PANEL CO2 15.1 mmol/ L 21.0-3 2.0 low Not Available [address] [place], [address] 03/24/2024 18:05:32 03/24/20 24 03/24/2024 COMPR EHENS KIRAN METAB OLIC PANEL anion gap 24.9 mmol/ L 3-11 high Not Available [address] [place], [address] 03/24/2024 18:05:32 03/24/20 24 03/24/2024 COMPR EHENS KIRAN METAB OLIC PANEL AST 13 U/L 15-37 low Not Available Debra [address] [place], [address] 03/24/2024 18:05:32 03/24/20 24 03/24/2024 COMPR EHENS KIRAN METAB OLIC PANEL ALT 24 U/L 16-63 normal Not Available Debra [address] [place], [id number] 03/24/2024 18:05:32 03/24/20 24 03/24/2024 MAGNE SIUM magnesium 2.1 mg/dL 1.8-2. 4 normal Not Available [facility] (Registration ) [address] [place] [address] [place], [id number], 03/24/2024 18:05:33 03/24/20 24 03/24/2024 URINA LYSIS color Yellow yellow Not Available Debra floyd [address] [place], [address] 03/24/2024 18:24:33 03/24/20 24 03/24/2024 URINA LYSIS clarity Clear clear Not Available Debra floyd [address] [place], [address] 03/24/2024 18:24:33 03/24/20 24 03/24/2024 URINA LYSIS specific gravity >= 1.030 1.005- 1.025 high Not Available [address] [place] [place], [address] 03/24/2024 18:24:33 03/24/20 24 03/24/2024 URINA LYSIS pH 5.5 5-8 normal Not Available Debra floyd [address] [place], [address] 03/24/2024 18:24:33 03/24/20 24 03/24/2024 URINA LYSIS leukocyte esterase Negati ve negati ve Not Available [address] [place], [address] 03/24/2024 18:24:33 03/24/20 24 03/24/2024 URINA LYSIS nitrite Negati ve negati ve Not Available [address] [place], [address] 03/24/2024 18:24:33 03/24/20 24 03/24/2024 URINA LYSIS protein 100 mg/dL neg-tr elida abnormal Not Available [address] [place], [address] 03/24/2024 18:24:33 03/24/20 24 03/24/2024 URINA LYSIS glucose 500 mg/dL negati ve abnormal Not Available [address] [place], [address] 03/24/2024 18:24:33 03/24/20 24 03/24/2024 URINA LYSIS ketones >=160 mg/dL negati ve abnormal Not Available [address] [place], [address] 03/24/2024 18:24:33 03/24/20 24 03/24/2024 URINA LYSIS urobilinogen 0.2 mg/dL up to 0.2 Not Available [address] [place], [address] 03/24/2024 18:24:33 03/24/2003/24/2024 URINA LYSIS bilirubin Small negati ve abnormal Not Available [address] [place], [address] 03/24/2024 18:24:33 03/24/20 24 03/24/2024 URINA LYSIS blood Negati ve negati ve Not Available [address] [place], [address] 03/24/2024 18:24:33 03/24/2003/24/2024 URINA LYSIS color Yellow yellow Not Available Debra floyd [address] [place], [address] 03/24/2024 18:34:33 03/24/20 24 03/24/2024 URINA LYSIS clarity Clear clear Not Available Debra floyd [address] [place], [address] 03/24/2024 18:34:33 03/24/20 24 03/24/2024 URINA LYSIS specific gravity >= 1.030 1.005- 1.025 high Not Available [address] [place], [address] 03/24/2024 18:34:33 03/24/20 24 03/24/2024 URINA LYSIS pH 5.5 5-8 normal Not Available Debra floyd [address] [place], [address] 03/24/2024 18:34:33 03/24/20 24 03/24/2024 URINA LYSIS leukocyte esterase Negati ve negati ve Not Available [address] [place], [address] 03/24/2024 18:34:33 03/24/20 24 03/24/2024 URINA LYSIS nitrite Negati ve negati ve Not Available [address] [place], [address] 03/24/2024 18:34:33 03/24/20 24 03/24/2024 URINA LYSIS protein 100 mg/dL neg-tr elida abnormal Not Available [address] [place], [address] 03/24/2024 18:34:33 03/24/20 24 03/24/2024 URINA LYSIS glucose 500 mg/dL negati ve abnormal Not Available [address] [place], [address] 03/24/2024 18:34:33 03/24/20 24 03/24/2024 URINA LYSIS ketones >=160 mg/dL negati ve abnormal Not Available [address] [place], [address] 03/24/2024 18:34:33 03/24/20 24 03/24/2024 URINA LYSIS urobilinogen 0.2 mg/dL up to 0.2 Not Available [address] [place], [address] 03/24/2024 18:34:33 03/24/20 24 03/24/2024 URINA LYSIS bilirubin Small negati ve abnormal Not Available [address] [place], [address] 03/24/2024 18:34:33 03/24/20 24 03/24/2024 URINA LYSIS blood Negati ve negati ve Not Available [address] [place], [address] 03/24/2024 18:34:33 03/24/20 24 03/24/2024 MICRO SCOPI C FINDI NGS WBC Negati ve hpf 0-5 Not Available [address] [place], [address] 03/24/2024 18:34:33 03/24/20 24 03/24/2024 MICRO SCOPI C FINDI NGS RBC Negati ve hpf 0-2 Not Available [address] [place], [address] 03/24/2024 18:34:33 03/24/20 24 03/24/2024 MICRO SCOPI C FINDI NGS epithelial cells Rare hpf negati ve Not Available [address] [place], [address] 03/24/2024 18:34:33 03/24/20 24 03/24/2024 MICRO SCOPI C FINDI NGS bacteria Negati ve hpf negati ve Not Available [address] [place], [address] 03/24/2024 18:34:33 03/24/20 24 03/24/2024 MICRO SCOPI C FINDI NGS crystals Negati ve hpf negati ve Not Available [address] [place], [address] 03/24/2024 18:34:33 03/24/20 24 03/24/2024 MICRO SCOPI C FINDI NGS mucus Negati ve negati ve Not Available [address] [place], [address] 03/24/2024 18:34:33 03/24/20 24 03/24/2024 MICRO SCOPI C FINDI NGS casts 3-5 Hyalin e lpf negati ve 0-2 FINE GRANU LAR Not Available [address] [place], [address] 03/24/2024 18:34:33 03/24/20 24 03/24/2024 MICRO SCOPI C FINDI NGS C S indicated? No Not Available [address] [place], [address] 03/24/2024 18:34:33 03/24/20 24 03/24/2024 TROPO ALLA I troponin I < 50 NG/L < or =60 Not Available [address] [place], [address] 03/24/2024 18:53:36 03/24/20 24 03/24/2024 VENOU S BLOOD GAS pH (venous) 7.22 7.31-7 .41 low Not Available [address] [place], [address] 03/24/2024 19:46:50 03/24/20 24 03/24/2024 VENOU S BLOOD GAS pCO2 (venous) 29 mmHg 41-51 low Not Available [address] [place], [address] 03/24/2024 19:46:50 03/24/20 24 03/24/2024 VENOU S BLOOD GAS pO2 (venous) 51 mmHg Not Available [address] [place], [address] 03/24/2024 19:46:50 03/24/20 24 03/24/2024 VENOU S BLOOD GAS TCO2 (venous) 11 mmol/ L 24-29 low Not Available [address] [place], [address] 03/24/2024 19:46:50 03/24/20 24 03/24/2024 VENOU S BLOOD GAS HCO3 (venous) 12 mmol/ L 23-28 low Not Available [address] [place], [address] 03/24/2024 19:46:50 03/24/20 24 03/24/2024 VENOU S BLOOD GAS BE (venous) -16 mmol/ L -2-3 low Not Available [address] [place], [address] 03/24/2024 19:46:50 03/24/2003/24/2024 VENOU S BLOOD GAS O2 sat (venous) 83 % Not Available [facility] [address] [place], [address] 03/24/2024 19:46:50 03/24/2003/24/2024 BASIC METAB OLIC PANEL calcium 8.0 mg/dL 8.5-10 .1 low Not Available [address] [place], [address] 03/24/2024 19:57:52 03/24/2003/24/2024 BASIC METAB OLIC PANEL glucose 166 mg/dL 74-106 high Not Available Debra floyd [address] [place], [address] 03/24/2024 19:57:52 03/24/2003/24/2024 BASIC METAB OLIC PANEL BUN 11 mg/dL 7-18 normal Not Available Debra floyd [address] [place], [address] 03/24/2024 19:57:52 03/24/20 24 03/24/2024 BASIC METAB OLIC PANEL creatinine 1.3 mg/dL 0.70-1 .30 normal Not Available [address] [place], [address] 03/24/2024 19:57:52 03/24/20 24 03/24/2024 BASIC METAB [...] young er-ag ed adult s. Not Available [address] [place], [address] 03/24/2024 19:57:52 03/24/20 24 03/24/2024 BASIC METAB OLIC PANEL sodium 138 mmol/ L 136-14 5 normal Not Available [address] [place], [address] 03/24/2024 19:57:52 03/24/20 24 03/24/2024 BASIC METAB OLIC PANEL potassium 3.9 mmol/ L 3.5-5. 1 normal Not Available [address] [place], [address] 03/24/2024 19:57:52 03/24/20 24 03/24/2024 BASIC METAB OLIC PANEL chloride 105 mmol/ L 98-107 normal Not Available [address] [place], [address] 03/24/2024 19:57:52 03/24/20 24 03/24/2024 BASIC METAB OLIC PANEL CO2 13.9 mmol/ L 21.0-3 2.0 low Not Available [address] [place], [address] 03/24/2024 19:57:52 03/24/20 24 03/24/2024 BASIC METAB OLIC PANEL anion gap 19.1 mmol/ L 3-11 high Not Available [address] [place], [address] 03/24/2024 19:57:52 03/24/20 24 03/25/2024 BLOOD CULTU RE ( AGE => 9 YRS) blood culture ( age => 9 yrs) Blood Cultu re ( Age => 9 Yrs) NO GROWT H 24 HOURS Not Available [address] [place], [address] 03/25/2024 17:49:36 03/24/20 24 03/25/2024 BLOOD CULTU RE ( AGE => 9 YRS) blood culture ( age => 9 yrs) Blood Cultu re ( Age => 9 Yrs) NO GROWT H 24 HOURS Not Available [address] [place], [address] 03/25/2024 19:11:42 03/24/20 24 03/26/2024 BLOOD CULTU RE ( AGE => 9 YRS) blood culture ( age => 9 yrs) Blood Cultu re ( Age => 9 Yrs) NO GROWT H 48 HOURS Not Available [address] [place], [address] 03/26/2024 17:51:46 03/24/2003/26/2024 BLOOD CULTU RE ( AGE => 9 YRS) blood culture ( age => 9 yrs) Blood Cultu re ( Age => 9 Yrs) NO GROWT H 48 HOURS Not Available [address] [place], [address] 03/26/2024 19:11:56 03/24/20 24 03/27/2024 BLOOD CULTU RE ( AGE => 9 YRS) blood culture ( age => 9 yrs) Blood Cultu re ( Age => 9 Yrs) NO GROWT H 72 HOURS Not Available [address] [place], [address] 03/27/2024 17:53:04 03/24/20 24 03/27/2024 BLOOD CULTU RE ( AGE => 9 YRS) blood culture ( age => 9 yrs) Blood Cultu re ( Age => 9 Yrs) NO GROWT H 72 HOURS Not Available [address] [place], [address] 03/27/2024 19:12:05 03/24/20 24 03/28/2024 BLOOD CULTU RE ( AGE => 9 YRS) blood culture ( age => 9 yrs) Blood Cultu re ( Age => 9 Yrs) NO GROWT H 96 HOURS Not Available [address] [place], [address] 03/28/2024 17:52:07 03/24/20 24 03/28/2024 BLOOD CULTU RE ( AGE => 9 YRS) blood culture ( age => 9 yrs) Blood Cultu re ( Age => 9 Yrs) NO GROWT H 96 HOURS Not Available [address] [place], [address] 03/28/2024 19:12:13 03/24/20 24 03/29/2024 BLOOD CULTU RE ( AGE => 9 YRS) blood culture ( age => 9 yrs) Blood Cultu re ( Age => 9 Yrs) NO GROWT H 120 HOURS Not Available [address] [place], [address] 03/29/2024 17:52:01 03/24/20 24 03/29/2024 BLOOD CULTU RE ( AGE => 9 YRS) blood culture ( age => 9 yrs) Blood Cultu re ( Age => 9 Yrs) NO GROWT H 120 HOURS Not Available [address] [place], [address] 03/29/2024 19:10:16 03/24/20 24 03/24/2024 hemog lobin (Hb), finge rstic k, blood HGB 15 g/dL Not Available [address], [address], 03/24/2024 13:20:25 03/24/20 24 03/24/2024 hemog lobin (Hb), finge rstic k, blood HGB 15 g/dL Not Available [address], [address], 03/24/2024 12:40:22 04/23/2004/23/2024 hemog lobin A1C, finge rstic k hemoglobin A1C 8.0 % <5.7 Not Available [address], [address], 04/23/2024 11:48:33 05/07/20 24 05/07/2024 COMPL ETE BLOOD COUNT W/DIF F WBC 7.39 10_3/ uL 4.4-10 .8 normal Not Available [address] [place], [address] 05/07/2024 09:55:15 05/07/20 24 05/07/2024 COMPL ETE BLOOD COUNT W/DIF F RBC 5.34 10_6/ uL 4.36-5 .78 normal Not Available [address] [place], [address] 05/07/2024 09:55:15 05/07/20 24 05/07/2024 COMPL ETE BLOOD COUNT W/DIF F HGB 12.8 g/dL 13.5-1 7.5 low Not Available [address] [place], [address] 05/07/2024 09:55:15 05/07/2005/07/2024 COMPL ETE BLOOD COUNT W/DIF F HCT 41.3 % 40.0-5 0.0 normal Not Available [address] [place], [address] 05/07/2024 09:55:15 05/07/20 24 05/07/2024 COMPL ETE BLOOD COUNT W/DIF F MCV 77 fL 80-95 low Not Available Debra floyd [address] [place], [address] 05/07/2024 09:55:15 05/07/2005/07/2024 COMPL ETE BLOOD COUNT W/DIF F MCH 24.0 pg 27.0-3 3.0 low Not Available [address] [place], [address] 05/07/2024 09:55:15 05/07/20 24 05/07/2024 COMPL ETE BLOOD COUNT W/DIF F MCHC 31.0 % 32.0-3 6.0 low Not Available [address] [place], [address] 05/07/2024 09:55:15 05/07/20 24 05/07/2024 COMPL ETE BLOOD COUNT W/DIF F RDW 16.8 % 11.8-1 4.1 high Not Available [address] [place], [address] 05/07/2024 09:55:15 05/07/20 24 05/07/2024 COMPL ETE BLOOD COUNT W/DIF F platelet count 192 10_3/ uL 130-40 0 normal Not Available [address] [place], [address] 05/07/2024 09:55:15 05/07/20 24 05/07/2024 COMPL ETE BLOOD COUNT W/DIF F MPV 10.7 fL 8.0-11 .0 normal Not Available [address] [place], [address] 05/07/2024 09:55:15 05/07/20 24 05/07/2024 COMPL ETE BLOOD COUNT W/DIF F neutrophils % 72.2 % Not Available [address] [place], [address] 05/07/2024 09:55:15 05/07/20 24 05/07/2024 COMPL ETE BLOOD COUNT W/DIF F lymphocytes % 18.8 % Not Available [facility] [address] [place], [address] 05/07/2024 09:55:15 05/07/20 24 05/07/2024 COMPL ETE BLOOD COUNT W/DIF F monocytes % 4.1 % Not Available [address] [place], [address] 05/07/2024 09:55:15 05/07/20 24 05/07/2024 COMPL ETE BLOOD COUNT W/DIF F eosinophils % 3.9 % Not Available [address] [place], [address] 05/07/2024 09:55:15 05/07/20 24 05/07/2024 COMPL ETE BLOOD COUNT W/DIF F basophils % 0.7 % Not Available [address] [place], [address] 05/07/2024 09:55:15 05/07/20 24 05/07/2024 COMPL ETE BLOOD COUNT W/DIF F immature grans % 0.3 % Not Available [address] [place], [address] 05/07/2024 09:55:15 05/07/20 24 05/07/2024 COMPL ETE BLOOD COUNT W/DIF F nucleated RBC 0.0 % 0.0-0. 3 normal Not Available [address] [place], [address] 05/07/2024 09:55:15 05/07/20 24 05/07/2024 COMPL ETE BLOOD COUNT W/DIF F absolute neutrophil count 5.34 10_3/ uL 1.2-6. 7 normal Not Available [address] [place], [address] 05/07/2024 09:55:15 05/07/20 24 05/07/2024 COMPL ETE BLOOD COUNT W/DIF F absolute lymphocyte count 1.39 10_3/ uL 1.2-3. 4 normal Not Available [address] [place], [address] 05/07/2024 09:55:15 05/07/20 24 05/07/2024 COMPL ETE BLOOD COUNT W/DIF F absolute monocyte count 0.30 10_3/ uL 0.1-0. 8 normal Not Available [address] [place], [address] 05/07/2024 09:55:15 05/07/20 24 05/07/2024 COMPL ETE BLOOD COUNT W/DIF F absolute eosinophil count 0.29 10_3/ uL 0.0-0. 7 normal Not Available [address] [place], [address] 05/07/2024 09:55:15 05/07/20 24 05/07/2024 COMPL ETE BLOOD COUNT W/DIF F absolute basophil count 0.05 10_3/ uL 0.0-0. 2 normal Not Available [address] [place], [address] 05/07/2024 09:55:15 05/07/20 24 05/07/2024 COMPR EHENS KIRAN METAB OLIC PANEL calcium 8.8 mg/dL 8.5-10 .1 normal Not Available [address] [place], [address] 05/07/2024 10:13:24 05/07/20 24 05/07/2024 COMPR EHENS KIRAN METAB OLIC PANEL glucose 258 mg/dL 74-106 high Not Available Debra floyd [address] [place], [address] 05/07/2024 10:13:24 05/07/20 24 05/07/2024 COMPR EHENS KIRAN METAB OLIC PANEL BUN 6 mg/dL 7-18 low Not Available Debra floyd [address] [place], [address] 05/07/2024 10:13:24 05/07/20 24 05/07/2024 COMPR EHENS KIRAN METAB OLIC PANEL creatinine 0.9 mg/dL 0.70-1 .30 normal Not Available [address] [place], [address] 05/07/2024 10:13:24 05/07/20 24 05/07/2024 COMPR EHENS [...] young er-ag ed adult s. Not Available [address] [place], [address] 05/07/2024 10:13:24 05/07/20 24 05/07/2024 COMPR EHENS KIRAN METAB OLIC PANEL total protein 6.6 g/dL 6.4-8. 2 normal Not Available [address] [place], [address] 05/07/2024 10:13:24 05/07/20 24 05/07/2024 COMPR EHENS KIRAN METAB OLIC PANEL albumin 2.8 g/dL 3.4-5. 0 low Not Available [address] [place], [address] 05/07/2024 10:13:24 05/07/20 24 05/07/2024 COMPR EHENS KIRAN METAB OLIC PANEL bilirubin, total 0.31 mg/dL 0.2-1. 0 normal Not Available [address] [place], [address] 05/07/2024 10:13:24 05/07/20 24 05/07/2024 COMPR EHENS KIRAN METAB OLIC PANEL alk phos 77 U/L 46-116 normal Not Available [address] [place], [address] 05/07/2024 10:13:24 05/07/20 24 05/07/2024 COMPR EHENS KIRAN METAB OLIC PANEL sodium 137 mmol/ L 136-14 5 normal Not Available [address] [place], [address] 05/07/2024 10:13:24 05/07/20 24 05/07/2024 COMPR EHENS KIRAN METAB OLIC PANEL potassium 4.1 mmol/ L 3.5-5. 1 normal Not Available [address] [place], [address] 05/07/2024 10:13:24 05/07/20 24 05/07/2024 COMPR EHENS KIRAN METAB OLIC PANEL chloride 101 mmol/ L 98-107 normal Not Available [address] [place], [address] 05/07/2024 10:13:24 05/07/20 24 05/07/2024 COMPR EHENS KIRAN METAB OLIC PANEL CO2 29.6 mmol/ L 21.0-3 2.0 normal Not Available [address] [place], [address] 05/07/2024 10:13:24 05/07/20 24 05/07/2024 COMPR EHENS KIRAN METAB OLIC PANEL anion gap 6.4 mmol/ L 3-11 normal Not Available [address] [place], [address] 05/07/2024 10:13:24 05/07/20 24 05/07/2024 COMPR EHENS KIRAN METAB OLIC PANEL AST 18 U/L 15-37 normal Not Available Debra floyd [address] [place], [address] 05/07/2024 10:13:24 05/07/20 24 05/07/2024 COMPR EHENS KIRAN METAB OLIC PANEL ALT 19 U/L 16-63 normal Not Available Debra floyd [address] [place], [address] 05/07/2024 10:13:24 05/28/20 24 05/28/2024 COMPR EHENS KIRAN METAB OLIC PANEL calcium 8.7 mg/dL 8.5-10 .1 normal Not Available [address] [place], [address] 05/28/2024 08:34:59 05/28/2005/28/2024 COMPR EHENS KIRAN METAB OLIC PANEL glucose 251 mg/dL 74-106 high Not Available Debra floyd [address] [place], [address] 05/28/2024 08:34:59 05/28/2005/28/2024 COMPR EHENS KIRAN METAB OLIC PANEL BUN 13 mg/dL 7-18 normal Not Available Debra floyd [address] [place], [address] 05/28/2024 08:34:59 05/28/20 24 05/28/2024 COMPR EHENS KIRAN METAB OLIC PANEL creatinine 0.9 mg/dL 0.70-1 .30 normal Not Available [address] [place], [address] 05/28/2024 08:34:59 05/28/20 24 05/28/2024 COMPR EHENS KIRAN METAB OLIC PANEL estimated [...] young er-ag ed adult s. Not Available [address] [place], [address] 05/28/2024 08:34:59 05/28/20 24 05/28/2024 COMPR EHENS KIRAN METAB OLIC PANEL total protein 7.1 g/dL 6.4-8. 2 normal Not Available [address] [place], [address] 05/28/2024 08:34:59 05/28/20 24 05/28/2024 COMPR EHENS KRIAN METAB OLIC PANEL albumin 3.0 g/dL 3.4-5. 0 low Not Available [address] [place], [address] 05/28/2024 08:34:59 05/28/20 24 05/28/2024 COMPR EHENS KIRAN METAB OLIC PANEL bilirubin, total 0.31 mg/dL 0.2-1. 0 normal Not Available [address] [place], [address] 05/28/2024 08:34:59 05/28/20 24 05/28/2024 COMPR EHENS KIRAN METAB OLIC PANEL alk phos 114 U/L 46-116 normal Not Available [address] [place], [address] 05/28/2024 08:34:59 05/28/20 24 05/28/2024 COMPR EHENS KIRAN METAB OLIC PANEL sodium 139 mmol/ L 136-14 5 normal Not Available [address] [place], [address] 05/28/2024 08:34:59 05/28/20 24 05/28/2024 COMPR EHENS KIRAN METAB OLIC PANEL potassium 3.7 mmol/ L 3.5-5. 1 normal Not Available [address] [place], [address] 05/28/2024 08:34:59 05/28/20 24 05/28/2024 COMPR EHENS KIRAN METAB OLIC PANEL chloride 101 mmol/ L 98-107 normal Not Available [address] [place], [address] 05/28/2024 08:34:59 05/28/20 24 05/28/2024 COMPR EHENS KIRAN METAB OLIC PANEL CO2 29.7 mmol/ L 21.0-3 2.0 normal Not Available [address] [place], [address] 05/28/2024 08:34:59 05/28/20 24 05/28/2024 COMPR EHENS KIRAN METAB OLIC PANEL anion gap 8.3 mmol/ L 3-11 normal Not Available [address] [place], [address] 05/28/2024 08:34:59 05/28/20 24 05/28/2024 COMPR EHENS KIRAN METAB OLIC PANEL AST 16 U/L 15-37 normal Not Available Debra floyd [address] [place], [address] 05/28/2024 08:34:59 05/28/20 24 05/28/2024 COMPR EHENS KIRAN METAB OLIC PANEL ALT 24 U/L 16-63 normal Not Available eDbra floyd [address] [place], [address] 05/28/2024 08:34:59 02/26/20 24 02/26/2024 CT imagi bruce Hernandez t Name: Charles Nick Unit #: [id number] Loc: DI Orderi ng Provid er: Quang Hernandez t #: [id number] Status : REG CLI Primar y [...] facili ty are submit dotty to the [facility] al Radiol ogy Data Regist ry (NRDR) [...] tion); or iterat kiran recons tructi on. 612-0 002: Total DLP = 0.00 mGy-cm Ordere d By: Quang Hernandez CC: WALESKAYoel [facility] ------ ------ ------ ------ ------ ------ ------ ------ ------ ------ ------ ------ ---- Dictat ed By: Juan Delacruz M.D. 7 1106 Transc ribed By: Juan Delacruz 1106 [...] at the addres s above. Thank- you. [facility] [address], [place], [address] 02/26/2024 13:16:53 03/24/20 24 03/24/2024 CT imagi ng repor t Patien t Name: Charles Nick Unit #: [id number] Loc: ER Orderi ng Provid er: Rayo Ramos M.D. t #: [id number] Status : REG ER Primar y Care Provid er: Issac Jaye sanchez neomoon Date of Exam: 07/08 Sex: M : [...] facili ty are submit dotty to the [facility] Radiol ogy Data Regist ry (NRDR) [...] indica tion); or iterat kiran recons tructi on709- 028: Total DLP = [...] at the addres s above. Thank- you. [address], [place], [address] 03/25/2024 04:38:41 03/26/20 24 03/25/2024 elect gerardo olvera am EKG DAVID Holland NAME: Charles Nick UNIT #: [id number] [facility] ER: Kenny Garcia DO ACCOUN T #: [id number] PRIMAR Y CARE PROVID ER: Alexa CHAMBERLAIN APRN DATE/T JOHN OF SERVIC E: 1507 : 1975 [facility] LOCATI ON: ER ------ ------ --- APPROV ED REPORT ------ ------ -- Exam: Restin g ECG Reason for Exam: Hypote nsion David holland Locati on: E HR:112 bpm ECG Measur ements Heart Rate 112 AXIS [place] 152 P 54 QRSd 103 QRS 70 [...] ECG Measur ements Heart Rate 112 [place] 152 P 54 QRSd 103 QRS 70 [...] retati on. Electr onical ly signed by: [id number] Cosign ed by: [email or web address] [facility] [address] [place], [address] 03/26/2024 08:57:17 05/31/2011/03/2022 imagi ng/di agnos tic resul t No observ ation record ed. [email or web address] Not Available 05/31 00:15:19 05/31/20 24 09/24/2022 imagi ng/di agnos tic resul t No [...] Name and Address Organization Details Recorded [facility] laura bethea 50570618 Active 2006 Alie dorsey [facility] 4 13:29:59 Nephroti c syndrome 39198967 Completed 200603/03/2007 Not Available [employer] 3 04:42:43 Chronic kidney disease stage 3 328549161 Active 2010 Alie dorsey [facility] 4 13:29:40 Obstruct kiran sleep apnea syndrome 59663211 Active 2013 Alie dorsey [facility] 4 13:30:42 Anxiety 07232707 [facility] 4 13:29:15 Type 2 diabetes mellitus without complica tion 168696065 [facility] 4 13:30:59 Obesity 171021580 Active 2015 [facility] 4 13:30:35 Edema 289645514 Active 2015 [facility] 4 13:29:50 Allergy to food 695196462 Active 2016 [facility] 4 13:29:10 Adult health examinat ion Active 2018 [facility] 4 13:29:06 Erectile dysfunct ion 651051961 Active 2018 [facility] 4 13:29:54 Neuropat hy due to type 2 diabetes mellitus 44289930967 9106 Active 2020 [facility] 4 13:30:25 Screenin g for malignan t neoplasm of colon Active 2020 [facility] 4 13:30:50 Digestiv e system finding 662302540 Active 2021 [facility] 4 13:29:44 Vitamin B deficien cy 96115031 Active 2021 [facility] 4 13:31:03 Pre-surg mirta evaluati on Completed 202106/01/2022 Problem Code: Z01.818; Problem Code Type: ICD-10; Not Available [facility] 3 04:42:45 Bilatera l hearing loss 58232042 Active 2021 [facility] 4 13:29:19 Venereal disease screenin g Completed 202108/24/2022 Problem Code: Z11.3; Problem Code Type: ICD-10; Not Available [facility] 3 04:42:45 Hypomagn esemia 537535926 Active 2022 [facility], [facility] 4 13:30:11 Secondar y polycyth emia 40776331 Active 2022 [facility] 4 13:30:54 Kidney stone 40635488 Active 2022 [facility] 4 13:30:16 History of polyp of colon 482899875 Active 2022 [facility] 4 13:30:07 Disorder of nasal sinus 6055298 Active 2022 OLGA MARCUS, BUTTER [employer] TE[employer] [address], [place], [address] , [facility] 4 08:08:16 Nonalcoh olic steatohe patitis 247551664 Active 2022 [facility], [facility] 4 13:30:32 Body mass index 30+ - obesity 371344742 Active 2022 [facility] 4 13:29:23 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 mellitus 768412363 Active 2022 [facility] 4 13:30:46 Nephroti c syndrome , diffuse membrano us glomerul onephrit is 042152515 Active 2022 Alie dorsey [facility] 4 13:30:20 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 59398889684 00 Active 2022 Alie dorsey [facility] 4 13:30:03 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 40899694676 00 Completed 202004/10/2021 Problem Code: E11.621; Problem Code Type: ICD-10; Alie dorsey [facility] 4 13:30:03 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 58974182228 00 Completed 202007/25/2022 Problem Code: E11.621; Problem Code Type: ICD-10; [facility] 4 13:30:03 Hypergly cemia due to type 2 diabetes mellitus 89802078216 9109 Completed 201608/15/2017 Problem Code: E11.65; Problem Code Type: ICD-10; Not Available [facility] 3 04:42:47 Phimosis 152925205 Completed 201704/29/2022 Problem Code: N47.1; Problem Code Type: ICD-10; Not Available [facility] 3 04:42:47 Snoring 10581884 Completed 201303/01/2016 Not Available [facility] 3 04:42:48 Imaging of abdomen abnormal 690422353 Completed 202212/20/2022 Problem Code: R93.5; Problem Code Type: ICD-10; Not Available [facility] 3 04:42:48 Adult health examinat ion Completed 201403/01/2016 Problem Code: Z00.00; Problem Code Type: ICD-10; [facility] 4 13:29:06 Obesity 473016212 Completed 200606/11/2023 [facility] 4 13:30:35 Fatigue 51898157 Completed 201303/01/2016 Not Available [facility] 3 04:42:48 Acute upper respirat ory infectio n 52679561 Completed 202004/29/2022 Problem Code: J06.9; Problem Code Type: ICD-10; Not Available [facility] 3 04:42:49 Nausea 403636938 Completed 202212/20/2022 Problem Code: R11.0; Problem Code Type: ICD-10; Not Available [facility] 3 04:42:49 Type 2 diabetes mellitus without complica tion 399332350 Completed 202201/10/2023 Problem Code: E11.9; Problem Code Type: ICD-10; Alie dorsey, [facility] 13:30:59 Dyssomni a 06795614 Completed 201303/01/2016 Problem Code: 780.59; Problem Code Type: ICD-9; Not Available [facility] 3 04:42:49 Acute bronchit is 10677658 Completed 201708/09/2019 Problem Code: J20.9; Problem Code Type: ICD-10; Not Available [facility] 3 04:42:49 Nausea and vomiting 65999844 Completed 202107/25/2022 Problem Code: R11.2; Problem Code Type: ICD-10; Not Available [facility] 3 04:42:50 Sleep apnea 13742083 Completed 201306/11/2023 Problem Code: 780.57; Problem Code Type: ICD-9; Not Available [facility] 3 04:42:50 Disturba nce of consciou sness 7301992 Completed 201303/01/2016 Problem Code: 780.09; Problem Code Type: ICD-9; Not Available [facility] 3 04:42:50 Acute sinusiti s 81981227 Completed 202004/10/2021 Problem Code: J01.90; Problem Code Type: ICD-10; Not Available [facility] 3 04:42:50 Jesus Alberto brown 75391638 Completed 201608/15/2017 Problem Code: N48.1; Problem Code Type: ICD-10; Not Available [facility] 3 04:42:51 Sleep disorder 80560618 Completed 201303/01/2016 Problem Code: 780.50; Problem Code Type: ICD-9; Not Available [facility] 3 04:42:51 Nodule of subcutan eous tissue of left foot 83323182189 390233 Active 2023 OLGA MARCUS APRN [address], [place], [address] , [facility] 4 08:13:06 Benign prostati c hyperpla mercy 781985074 Active 2023 Alie dorsey, [facility]. 4 13:31:06 Headache 96179378 Active 2023 OLGA MARCUS APRN [address], [place], [address] , [facility]. 4 08:57:45 Gynecoma stia 7324608 Active 2023 Alie dorsey, [facility]. 4 13:31:13 Ulcer of left foot 815571383 Active 2023 ARNALDO GOMEZ CMA null, [facility]. 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 4 13:31:10 Carcinom a of duodenum 051108267 Active 2023 EGD 01/06, biopsy at that time OLGA MARCUS APRN [address], [place], [address] , [facility]. 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 94454221220 9101 Active [address], [facility] [address] [place] [address] 4 14:16:49 Notes:*Problem Name: Duodena l polyp *Problem Status: active *Comments: *Problem Code: K31.7 *Problem Code Type: ICD-10 *Note Date: 2022 Problem Notes Documentation Provider Name and Address Organization Details Recorded Time Etcher Machine Consult Note : Po diatry Office Visit PATIENT NAME: Charles Nick UNIT #: [id number] ADMITTING PROVIDER: Alejandra Schreiber DPM [address] [...] Detail Total time on date of encounter, (iegl-pe-khvd and non csoz-gl-unjv) (minutes): 30 Time was spent: reviewing prior notes and diagnostics, providing direct patient care, ordering diagnostics and/or referrals, documenting today's visit, updating the EMR, coordinating care and other HPI 3 week wound care f/u. 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 He reports recently being hospitalized at [facility] (x1wk) for DKA. Exam Cardio Other: DP/ [...] below. Neuro Other: Protective sensation absent via [place] [employer] 5.07 monofilament. Negative tinel???s sign. Muscle [...] foot, has bandaid on it today with [employer]. Does report he has Mepilex available and has been using this as well. 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 He reports recently being hospitalized at [facility] (x1wk) for DKA. He reports he is not taking any pain meds which are listed on his [facility] med list today. He does have a [...] 20 mg PO BID 04/06/24 04/06/24 History oftala-expvnanh-wzjubex 2 cap PO TID 04/06/24 04/06/24 History [...] Nevus D22.9 CPT Codes [facility]bride Skin/Tissue - 73157 (03394) cc: - Dictated by: Alejandra Schreiber DPM Dictated: 04/06/24 Time: 1424 Date: 04/06/241521 Date: Date: Transcribed Date: 04/06/24 Transcribed Time: 1424 By: XENIA This is privileged, confidential information, intended only for the provider named. Any use or distribution by any person other than this provider is strictly prohibited. If you receive this report in error, please notify us immediately at [phone] and return the original report to us at the address above. Thank you. [address], [place], [address], [facility] 04/13/2024 09:08:25 Procedures Surgical History Date Name Laterality Status Provider Name and Address Organization Details Recorded Time IV insert completed Kinsey Oliveira RN [facility], [facility] 03/24/2024 15:58:08 endoscopy completed ARNALDO GOMEZ CMA [facility], [place] - [facility]. 01/02/2024 15:34:11 Imaging Results Imaging Date Name Status LastModified by Organization Details LastModified Time 02/26/2024 CT imaging report completed [address] [place], [address] 02/26/2024 13:16:53 03/24/2024 CT imaging report completed [address] [place], [address] 03/25/2024 04:38:41 03/25/2024 electrocardiogram completed [address] [place], [address] 03/26/2024 08:57:17 11/03/2022 imaging/diagnostic result completed Information not available 05/31/2024 00:15:19 09/24/2022 imaging/diagnostic result completed Information not available 05/31/2024 00:15:20 09/23/2022 imaging/diagnostic result completed Information not available 05/31/2024 00:16:21 11/03/2022 imaging/diagnostic result completed Information not available 05/31/2024 00:16:22 08/12/2021 imaging/diagnostic result completed Information not available 05/31/2024 00:16:59 12/05/2022 imaging/diagnostic result completed Information not available 05/31/2024 00:17:00 08/10/2021 imaging/diagnostic result completed Information not available 05/31/2024 00:17:03 08/12/2021 imaging/diagnostic result completed Information not available 05/31/2024 00:17:04 09/23/2022 imaging/diagnostic result completed Information not available 05/31/2024 00:17:57 Procedure Notes None recorded. Medical Equipment None Reported. Allergies Allergen ID Allergen Name Allergen Category Reaction Reaction Severity Criticality Documentation Date Start Date Code Code System Note Provider Name and Address Organization Details Recorded Time 19624 Medicinal product containin g penicilli n and acting as antibacte rial agent (product) medicatio n other mild Not available 11/29/20232006 47683 05 SNOMED Swell ing of cole dorsey [facility]. 4 13:58:03 Medications Name Sig Start Date [...] route as needed. 2023 active Per [facility] d/c summary 04/01/24 [...] mg capsule 05/27 completed Stopped per [facility] d/c summary 04/01/24 [...] DAY NEEDED 05/27 completed Stopped per [facility] d/c summary 04/01/24 [...] day by oral route. active Per [facility] d/c summary continue [...] EVERY DAY 04/23 completed Stopped per [facility] d/c summary 04/01/24 [...] Available No t Available [employer] [place] [address] [place] USE DIRECTED active Not Available Not Available No t Available Vitals Date Recorded Body height Body mass index (BMI) Body weight Oxygen saturation Oxygen saturation in Arterial blood by Pulse oximetry Heart rate Systolic blood pressure Diastolic blood pressure Provider Name and Address Organization Details Last Updated DateTime 4 186.69 cm 34.4 kg/m2 689867. 39 g 97 % 97 % 116 /min 128 mm[Hg] 66 mm[Hg] MELANIE MEIER [place] - [facility]. 4 15:00:31 Date Recorded Body height Heart [...] mm[Hg] 84 mm[Hg] 62 mm[Hg] STEPHANI JOHNSON [facility] 4 13:16:26 Date Recorded Body height Body mass index (BMI) Body weight Oxygen saturation Oxygen saturation in Arterial blood by Pulse oximetry Heart rate Body temperature Systolic blood pressure Diastolic blood pressure Provider Name and Address Organization Details Last Updated DateTime 4 186.69 cm 34.2 kg/m2 884895. 79 g 97 % 97 % 81 /min 97.89 [degF] 128 mm[Hg] 94 mm[Hg] ARNALDO GOMEZ [facility], [facility] 4 11:42:08 Date Recorded Systolic blood pressure Diastolic blood pressure Provider Name and Address Organization Details Last Updated DateTime 04/23/2024 122 mm[Hg] 90 mm[Hg] OLGA MARCUS APRN [address], [place], [address] 04/23/2024 12:17:35 Date Recorded Body height Body mass index (BMI) Body weight Body temperature Oxygen saturation Oxygen saturation in Arterial blood by Pulse oximetry Heart rate Systolic blood pressure Diastolic blood pressure Provider Name and Address Organization Details Last Updated DateTime 4 186.69 cm 34.4 kg/m2 414778. 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, [facility] 12/05/2023 08:46:50 What Was The Date [...] 05/27/2024 completed OLGA MARCUS, YOCASTA [address], [place], [address], [facility] 05/27/2024 14:49:23 Td (adult), 2 Lf tetanus toxoid, preservative free, adsorbed 04/22/2017 completed Not Available [facility] 07/25/2023 06:32:54 Tdap 02/27/2007 completed Not Available [facility] 06:32:54 Influenza, split virus, quadrivalent, PF 09/21/2020 completed Not Available [facility] 07/25/2023 06:32:54 Influenza, split virus, quadrivalent, PF 06/19/2021 completed Not Available [facility] 07/25/2023 06:32:54 Influenza, split virus, quadrivalent, PF 08/02/2019 completed Not Available [facility] 07/25/2023 06:32:54 COVID-19 vaccine, vector-nr, rS-Ad26, PF, 0.5 mL 01/19/2021 completed Not Available [facility] 07/25/2023 06:32:54 pneumococcal polysaccharide PPV23 09/21/2020 completed Not Available [facility] 2022 06:32:54 influenza, unspecified formulation 07/05/2016 completed Not Available [facility] 07/25/2023 06:32:54 influenza, unspecified formulation 07/16/2017 completed Not Available [facility] 07/25/2023 06:32:54 Influenza, split virus, quadrivalent, PF 06/17/2023 completed Not Available [facility] 09/26/2023 05:33:26 Past Encounters Encounter ID Performer Location Encounter Start Date Encounter Closed Date Diagnosis/Indication Diagnosis SNOMED-CT Code Diagnosis ICD10 Code [id number] OLGA MARCUS [address] [address] 09/23/2023 08:00:11 09/23/2023 08:21:23 Nodule of subcutaneous tissue of left foot 8560683664 4584191 R22.42 Obesity 697056098 E66.9 [id number] OLGA MARCUS [address] [address] 10/23/2023 11:49:56 10/23/2023 13:02:45 Obstructive sleep apnea syndrome 69651593 G47.33 Erectile dysfunction 860 885853 F52.21 Disorder o f nasal sinus 4964287 J34.9 Essential hypertension 28912652 I10 N18.9 R60.9 Anxiety 51268570 F41.9 F32.A Z73.3 Secondary polycythemia 01368159 D75.1 Nonalcohol ic steatohepatitis 783186331 K75.81 Digestive system finding 385724283 R19.8 Type 2 makayla betes mellitus without complication 239727629 E11.9 E11.40 Nephrotic syndrome, diffuse membranous glomerulonephritis 562895496 N04.20 Body mass index 30+ - obesity 922278532 Z68.36 Nodule of subcutaneous tissue of left foot 6283840105 6414694 R22.42 Benign pro static hyperplasia 678419832 N40.0 [id number] STEPHANI JOHNSON [address] [address] 11/24/2023 09:55:54 11/24/2023 10:08:02 Essential hypertension 00292586 I10 N18.9 R60.9 [id number] OLGA MARCUS [address] [address] 12/05/2023 08:36:54 12/05/2023 10:58:03 Type 2 diabetes mellitus without complication 409435687 E11.9 E11.40 Essential hypertension 68233830 I10 N18.9 R60.9 Anxiety 23367474 F41.9 F32.A Z73.3 Obstructiv e sleep apnea syndrome 19886540 G47.33 Body mass index 30+ - obesity 378268988 Z68.36 Digestive system finding 811542327 R19.8 Nonalcohol ic steatohepatitis 250208541 K75.81 Secondary polycythemia 19453727 D75.1 Disorder o f nasal sinus 8576834 J34.9 Nephrotic syndrome, diffuse membranous glomerulonephritis 928369303 N04.20 Nodule of subcutaneous tissue of left foot 1465099868 9213453 R22.42 Erectile dysfunction 860 814576 F52.21 Benign pro static hyperplasia 875833591 N40.0 Chest pain 41514177 R07. 9 Headache 33032375 R51.9 Gynecomastia 2156222 N62 [id number] STEPHANI JOHNSON, [address] [address] 02/02/2024 10:48:13 02/02/2024 11:14:25 Chronic kidney disease stage 3 613694078 N18.30 Essential hypertension 10417074 I10 N18.9 R60.9 Type 2 makayla betes mellitus without complication 944010630 E11.9 E11.40 [id number] OLGA MARCUS [address] [address] 02/23/2024 08:58:06 02/23/2024 09:59:23 Type 2 diabetes mellitus without complication 216523497 E11.9 E11.40 Essential hypertension 88635117 I10 N18.9 R60.9 Anxiety 07264095 F41.9 F32.A Z73.3 Obstructiv e sleep apnea syndrome 64240276 G47.33 Body mass index 30+ - obesity 523511950 Z68.36 Digestive system finding 688111879 R19.8 Nonalcohol ic steatohepatitis 420422401 K75.81 Secondary polycythemia 18243840 D75.1 Disorder o f nasal sinus 3686244 J34.9 Nephrotic syndrome, diffuse membranous glomerulonephritis 440812217 N04.20 Nodule of subcutaneous tissue of left foot 3655599501 3937065 R22.42 Erectile dysfunction 860 356176 F52.21 Benign pro static hyperplasia 597949758 N40.0 Carcinoma of duodenum 25 4381359 C17.0 Pain of le ft shoulder joint 9951784670 5663962 M25.512 Cramp in lower limb 4499 24900 R25.2 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 8401595784 100 E11.621 Pain in ri ght hip joint 4587674888 53490 M25.224 [id number] GURJIT WILLIS MD [address] [address] 03/15/2024 14:48:33 03/15/2024 15:46:20 Carcinoma of duodenum 068036745 C17.0 [id number] ADA HAMM MD [address] [address] 03/24/2024 13:12:40 03/24/2024 14:17:10 Tachycardia 2813394 R00.0 Lethargy 827706116 R53.8 3 Low blood pressure 47502 003 I95.9 [id number] OLGA MARCUS APRN [address] [address] 04/23/2024 11:09:47 04/23/2024 12:19:30 Type 2 diabetes mellitus without complication 198144905 E11.9 E11.40 Essential hypertension 51287575 I10 N18.9 R60.9 Anxiety 15773444 F41.9 F32.A Z73.3 Obstructiv e sleep apnea syndrome 03423090 G47.33 Body mass index 30+ - obesity 075703432 Z68.36 Digestive system finding 740943509 R19.8 Nonalcohol ic steatohepatitis 838193876 K75.81 Secondary polycythemia 77207086 D75.1 Disorder o f nasal sinus 7999327 J34.9 Nephrotic syndrome, diffuse membranous glomerulonephritis 446616050 N04.20 Nodule of subcutaneous tissue of left foot 8380096982 0068752 R22.42 Benign pro static hyperplasia 536037175 N40.0 Carcinoma of duodenum 25 1082627 C17.0 Pain of le ft shoulder joint 8938934800 2570254 M25.512 Cramp in lower limb 4499 62505 R25.2 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 6085792418 100 E11.621 Pain in ri ght hip joint 2655909708 11882 M25.551 Prolonged QT interval 11 8211243 I45.81 [id number] OLGA MARCUS [employer] [facility] [address] [place] [address] 05/27/2024 13:25:36 05/27/2024 14:46:21 Hyperglycemia due to type 1 diabetes mellitus 2009441734 46458 E10.65 Active or passive immunization 644939913 Z23 [id number] FIONA LOUISE [facility] [address] [place] [address] 05/31/2024 14:38:53 05/31/2024 14:42:10 Health Concerns Section Related Observation LastModified by Organization Detai ls LastModified Time None Recorded Concern Status LastModified by Organization Details LastModified Time None Recorded Advance Directives Directive None Recorded Payers Encounter Date Sequence Insurance Name Policy Number Policy Loo Covered Member ID Loo Member ID Guarantor Name 03/15/2024 1 [id number] Charles Hernandez [id number] Charles Nick 03/24/2024 1 UMR [id number] Charles Diallo'Lakshmi [id number] Charles Nick 04/23/2024 1 UMR [id number] Charles Hernandez [id number] Charles Nick 05/27/2024 1 UMR [id number] Charles Hernandez [id number] Charles Nick Notes Date Note Type Note Provider Name and Address Organization Details Recorded Time 03/15/2024 text/html HPI Notes: Sandy mortensen here for some hospital discharge follow-up. 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 [...] range GURJIT WILLIS MD [address], [place], [address], [facility]. 03/17/2024 10:23:16 03/24/2024 text/html HPI Notes: Dax [...] it is hot out. Sleeping a lot. MD [address], [place], [address], [facility]. 03/24/2024 16:04:59 04/23/2024 text/html HPI Notes: Is [...] hour days. Will gladly update and edit [facility] paperwork according to how he feels. Mediport next week, then chemo late next week. Nervous/ anxious about starting chemo. OLGA MARCUS, [employer] [address], [place], [address], [facility]. 04/23/2024 15:51:08 05/27/2024 text/html HPI Notes: Is he re [...] this. Infusion will be over 48 hours. [facility] runs out on 06.09.24. Worries about finances. Boss is supportive. only has vacation time, not sure how much but feels about 2 weeks or less. 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 OLGA MARCUS, [employer] [address], [place], [address], [facility]. 05/27/2024 14:54:11
--- OUTSIDE RECORDS SUMMARY | 2024-05-31 21:18 | XMS_ITS | Encounter Summary ---
Author Organization [facility] Address [address] [place] [address] Care Team Providers Care Sound Controller Name Role Phone Ramiro Cardenas MD Primary Care Provider [phone] Reason for Visit * Reason Onset Date Comments Post-OP Follow Up 05/03/2022 POD#0 CE PCIOL , right eye Encounter Details Date Type Department Care Team (Latest Contact Info) Description 05/03/2022 13:45 EDT Post-op Visit [facility] [address], [place] [address] Ezequiel Andrea MD [address] [place] [phone] Cataract extraction status of eye, right (Primary [...] Notes * Ezequiel Andrea MD - 05/03/2022 3420 EDT Chief Complaint: Pseudophakia, Cataract Post-Op Day [...] my own HPI and have reviewed the [facility]'s ROS as well. I personally completed [...] hazy view to posterior pole Care Teams Sound Controller Relationship Specialty Start Date End Date Ramiro Cardenas MD [address] [place] [address] PCP - General 04/24/09 documented as of this encounter
--- OUTSIDE RECORDS SUMMARY | 2024-05-31 21:18 | XMS_ITS | Encounter Summary ---
Author Organization [facility] Address [address] [place] [address] Care Team Providers Care Business Performance Specialist Name Role Phone Ramiro Cardenas MD Primary Care Provider [phone] Encounter Details Date Type Department Care Team (Late st Contact Info) Description 07/25/2022 Lab Requisition [facility] Pathology & Laboratory Medicine - [facility] [address] [place] [address] Outr Resulting Lab, Provider Social History Tobacco [...] 4th Generation Negative Negative 07/26/2022 10:04 EST [facility] Comment:If acute HIV-1 infec tion is suspected in a high risk patient, submit plasma specimen for HIV-1 RNA quantitation test. Blood VENOUS BLOOD / Unknown 07/25/2022 10:14 EST 07/25/2022 21:28 EST Narrative [facility] - 07/26/2022 10:04 EST Fourth Generation assay performed on the Siemens Centaur XPT. Provider Outr Resulting Lab IMMUNOLOGY A ND SEROLOGY ORDERABLES [facility] [address] [place] [address] documented in this encounter Visit Diagnoses Not on filedocumented in this encounter Care Teams Business Performance Specialist Relationship Specialty Start Date End Date Ramiro Cardenas MD [address] [place] [address] PCP - General 04/24/09 documented as of this encounter
--- OUTSIDE RECORDS SUMMARY | 2024-05-31 21:18 | XMS_ITS | Encounter Summary ---
Author Organization [facility] Address [address] [place] [address] Care Team Providers Care Hr Clerk Name Role Phone Ramiro Cardenas MD Primary Care Provider [phone] Reason for Referral * Specialty Diagnoses / Procedures Referred By Janak holland Referred To Contact Ezequiel Andrea MD [address] [place] [phone] Referral ID Status Reason Start Date Expiration [...] age-related cataract of left eye [H25.812] Procedures NE XCAPSL CTRC RMVL INSJ IO LENS PROSTH W/O ECP EXTRACTION, CATARACT, EXTRACAPSULAR, WITH IOL INSERTION ORA - Toric Referral ID Status Reason Start Date Expiration Date Visits Re quested Visits Authorized [id number] 1 1 Encounter Details Date Type Department Care Team (Latest Contact Info) Description 05/10/2022 9:45 EDT - 05/10/2022 12:28 EDT Hospital Encounter [facility] Operating Room [address] [place] [address] Ezequiel Andrea MD [address] [place] [phone] Discharge Disposition: Home or Self Care [...] not hesitate to call the office at [phone]. documented in this encounter Medications at Time [...] Toric (L) Operative Note Date: 05/10/2022 [place] [facility] [place] Charles Nick, : 1975, PREOPERATIVE [...] D, left eye. SURGEON: Ezequiel Andrea MD CARD FIXER: DANIELA Lyn ANESTHESIA: Topical and MAC ESTIMATED [...] complications. The patient returned to the career development engineer area alert and in good condition. * Preprocedure Instructions - Nahomi Zuniga RN - 05/07/2022 8664 EDT Charles Nick has been instructed as [...] 9:23 EDT) 05/28/2022 9:23 EDT Scan 2 Metal Tile Setter PROCEDURE/MINOR LEXA GICAL ORDERABLES * ECG REPORT - SCANNED (05/14/2022 8:14 EDT) 05/14/2022 8:14 EDT Scan 2 Metal Tile Setter PROCEDURE/MINOR LEXA GICAL ORDERABLES documented in this [...] Intraprocedure 1125 (Given - Provid er: Ezequiel nAdrea MD) tropicamide (MYDRIACYL) 1 % ophthalmic solution [...] 05/10/2022 documented in this encounter Care Teams Hr Clerk Relationship Specialty Start Date End Date Ramiro Cardenas MD [address] [place] [address] PCP - General 04/24/09 documented as of this encounter
--- OUTSIDE RECORDS SUMMARY | 2024-05-31 21:18 | XMS_ITS | Encounter Summary ---
Author Organization [facility] Address [address] [place] [address] Care Team Providers Care Long Line Teamster Name Role Phone Ramiro Cardenas MD Primary Care Provider [phone] Reason for Visit * Reason Onset Date Comments Post-OP Follow Up 05/09/2022 Encounter Details Date Type Department Care Team (Latest Contact Info) Description 05/09/2022 9:00 EDT Post-op Visit [facility] Ophthalmology [facility] [address] [place] [address] Ezequiel Andrea MD [address] [place] [phone] Cataract extraction status of eye, right (Primary [...] posterior pole Refraction Manifest Refraction Sphere Cylinder [place] Right -0.25 +0.25 168 Left IMPRESSION & [...] to posterior pole Manifest Refraction Sphere Cylinder [place] Right eye -0.25 +0.25 168 Left eye Care Teams Long Line Teamster Relationship Specialty Start Date End Date Ramiro Cardenas MD [address] [place] [address] PCP - General 04/24/09 documented as of this encounter
--- OUTSIDE RECORDS SUMMARY | 2024-05-31 21:18 | XMS_ITS | Encounter Summary ---
Author Organization [facility] Address [address] [place] [address] Care Team Providers Care Ram Car Operator Name Role Phone Ramiro Cardenas MD Primary Care Provider [phone] Reason for Visit * Auth/Cert Specialty Diagnoses [...] Expiration Date Visits Re quested Visits Authorized [id number] 1 1 Encounter Details Date Type Department Care Team (Late st Contact Info) Description 05/10/2022 11:15 EDT - 05/10/2022 12:00 EDT Surgery [facility] Operating Room [address] [place] [address] Ezequiel Andrea MD [address] [place] [phone] EXTRACTION, CATARACT, EXTRACAPSULAR, WITH IOL INSERTION ORA - Toric [[id number] (CPT??)] Surgery Details Date/Time Status Location OR Service Patient Class Case Cl ass Case Type Trauma Case? 05/10/22 1115 Posted [facility] [place] [facility] Ophthalmology Hos pital Outpatient [...] not hesitate to call the office at [phone]. documented in this encounter Medications at Time [...] Toric (L) Operative Note Date: 05/10/2022 [place] [facility] [place] Name: Charles Nick, : 1975, PREOPERATIVE [...] D, left eye. SURGEON: Ezequiel Andrea MD PATHOLOGIST ASSISTANT: DANIELA Lyn ANESTHESIA: Topical and MAC ESTIMATED [...] no complications. The patient returned to the health care marketing specialist area alert and in good condition. * Preprocedure Instructions - Nahomi Zuniga RN - 05/07/2022 7907 EDT Charles Nick has been instructed as [...] 9:23 EDT) 05/28/2022 9:23 EDT Scan 2 Swing Manager PROCEDURE/MINOR LEXA GICAL ORDERABLES * ECG REPORT - SCANNED (05/14/2022 8:14 EDT) 05/14/2022 8:14 EDT Scan 2 Swing Manager PROCEDURE/MINOR LEXA GICAL ORDERABLES documented in this [...] 05/10/2022 documented in this encounter Care Teams Ram Car Operator Relationship Specialty Start Date End Date Ramiro Cardenas MD [address] [place] [address] PCP - General 04/24/09 documented as of this encounter
--- OUTSIDE RECORDS SUMMARY | 2024-05-31 21:18 | XMS_ITS | Encounter Summary ---
Author Organization [facility] Address [address] [place] [address] Care Team Providers Care Portfolio Architect Name Role Phone Ramiro Cardenas MD Primary Care Provider [phone] Encounter Details Date Type Department Care Team (Late st Contact Info) Description 01/02/2024 Lab Requisition [facility] Pathology & Laboratory Medicine - [facility] [address] [place] [address] Mac Delacruz MD [address] [place] [address], [address] [place], [place] [id number] Benign neoplasm, unspecified site Social History Tobacco [...] explore management options, if applicable. 01/07/2024 11:44 [facility] Final Diagnosis A. DUODENUM, POLYP, BIOPSY: - Invasive moderately-differen tiated adenocarcinoma. - Lymphovascular invasion is identified. - See comment. 01/07/2024 11:44 [facility] Diagnosis Comment Mechanotherapist slides of this case were reviewed at the gastrointestinal/[facility] intradepartmental consultation conference. () Immunoperoxidase stains were performed on this case to further characterize the lesion. ANTIBODY(CLONE)(BLO CK):RESULT ERG ([id number], Driscoll) (A1): Positive around region of interest. CD31 [...] performance characteristics have been determined by [facility] and/or by the referring laboratory. The [...] high complexity clinical laboratory testing. 01/07/2024 11:44 [facility] Attestation By the signature below, the attending physician certifies that they have 1) personally conducted a gross and/or microscopic examination of the described specimen(s), and/or personally interpreted the results of laboratory testing of the described specimen(s), and 2) personally rendered or confirmed the above diagnosis. 01/07/2024 11:44 [facility] at 1144 Clinical History History of duodenal nodule, previous tubulovillous adenoma 01/07/2024 11:44 [facility] Gross Description A. Received in formalin labelled with proper patient identification (initials O, S) and duodenum polyp are four shi tissue fragments ranging from 0.2 x 0.2 x 0.1 cm to 0.4 x 0.3 x 0.2 cm. Entirely submitted in A1. JULIO RADFORD(ASCP) 01/05/2024 7:15 01/07/2024 11:44 EDT [facility] Performing Lab [facility] 01/07/2024 11:44 EDT [facility] Scanned Images 01/07/2024 11:44 EDT [facility] Tissue STRUCTURE OF SMALL INTESTINE / Unknown 01/02/2024 8:41 EDT 01/02/2024 17:09 EDT Mac Delacruz MD PATHOLOGY ORDERABLES [facility] [address] [place] [address] documented in this encounter Visit Diagnoses Diagnosis Benign neoplasm, unspecified site documented in this encounter Care Teams Portfolio Architect Relationship Specialty Start Date End Date Ramiro Cardenas MD [address] [place] [address] PCP - General 04/24/09 documented as of this encounter
--- OUTSIDE RECORDS SUMMARY | 2024-05-31 21:18 | XMS_ITS | Encounter Summary ---
Author Organization [facility] Address [address] [place] [address] Care Team Providers Care Yield Analyst Name Role Phone Ramiro Cardenas MD Primary Care Provider [phone] Reason for Visit * Auth/Cert Specialty Diagnoses / Procedures [facility] Referred To Contact Diagnoses 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 [H25.811] Procedures IL XCAPSL CTRC RMVL INSJ IO LENS PROSTH W/O ECP EXTRACTION, CATARACT, EXTRACAPSULAR, WITH IOL INSERTION ORA - Toric Referral ID Status Reason Start Date Expiration Date Visits Re quested Visits Authorized [id number] 1 1 Encounter Details Date Type Department Care Team (Late st Contact Info) Description 05/03/2022 11:32 EDT Anesthesia Event [facility] Operating Room [address] [place] [address] Shahida Zelaya MD [address] [phone] Trish Paz CRNA [address] [phone] Anesthesia Record Procedure Summary Procedure [...] without imunotherapy. 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 . ?? Obesity. [...] mg documented in this encounter Care Teams Yield Analyst Relationship Specialty Start Date End Date Ramiro Cardenas MD [address] [place] [address] PCP - General 04/24/09 documented as of this encounter
--- OUTSIDE RECORDS SUMMARY | 2024-05-31 21:18 | XMS_ITS | Encounter Summary ---
Author Organization [facility] Address [address] [place] [address] Care Team Providers Care Drafter Refrigeration Name Role Phone Ramiro Cardenas MD Primary Care Provider [phone] Encounter Details Date Type Department Care Team (Late st Contact Info) Description 02/26/2024 Lab Requisition [facility] Pathology & Laboratory Medicine - [facility] [address] [place] [address] Outr Resulting Lab, Provider Social History Tobacco [...] 1.7 See Note ng/mL 02/26/2024 22:48 EDT [facility] Comment: % Distribution of [...] Resulting Lab CHEMISTRY & BLOOD GAS ORDERABLES [facility] [address] [place] [address] documented in this encounter Visit Diagnoses Not on filedocumented in this encounter Care Teams Drafter Refrigeration Relationship Specialty Start Date End Date Ramiro Cardenas MD [address] [place] [address] PCP - General 04/24/09 documented as of this encounter
--- OUTSIDE RECORDS SUMMARY | 2024-05-31 21:18 | XMS_ITS | Referral Summary ---
Author Organization [facility] Address [address] [place] [address] Care Team Providers Care Clinical Pharmacologist Name Role Phone Ramiro Cardenas MD Primary Care Provider [phone] Allergies Active Allergy Reactions Criticality Noted Date [...] Overview: Added automatically from request for surgery [id number] Combined forms of age-related cataract of right eye 02/27/2022 Overview: Added automatically from request for surgery [id number] Social History Tobacco Use Types Packs/Day Years [...] on file Medical Devices Implanted Type Area Agricultural Engineering Technicians Device Identifier Shelf Expiration Date Model / Serial / Lot Lens Intraocular Toric Astigmatism Correction Foldable +20.0d Acrysof Iq [id number] - [id number] Implanted:Qty: 1 on 05/03/2022 by Ezequiel Andrea MD at [facility] Lens Right: Eye [employer] 05/06/2026 [id number]. [id number] / [id number] / Lens Intraocular Toric Astigmatism Correction Foldable +18.5d Acrysof Iq [id number] - [id number] Implanted:Qty: 1 on 05/10/2022 by Ezequiel Andrea MD at [facility] Lens Left: Lens [employer] [id number]. [id number] / [id number] / Advance Directives For more information, please contact: [phone] * Full Code (Latest Code Status on [...] Made the Decision? Default/Not Discussed Care Teams Clinical Pharmacologist Relationship Specialty Start Date End Date Ramiro Cardenas MD [address] [place] [address] PCP - General 04/24/09
--- OUTSIDE RECORDS SUMMARY | 2024-05-31 21:18 | XMS_ITS | Encounter Summary ---
Author Organization [facility] Address [address] [place] [address] Care Team Providers Care Gas Distribution Supervisor Name Role Phone Ramiro Cardenas MD Primary Care Provider [phone] Encounter Details Date Type Department Care Team (Late st Contact Info) Description 12/05/2022 Lab Requisition [facility] Pathology & Laboratory Medicine - [facility] [address] [place] [address] Mac Delacruz MD [address] [place] [address], [address] [place], [place] [id number] Calculus of ureter; Other diseases of stomach [...] explore management options, if applicable. 12/09/2022 8:38 [facility] Final Diagnosis A. DUODENUM, POLYP, BIOPSY: - Tubulovillous adenoma. - Negative for malignancy. B. COLON, 75 CMS, POLYP, BIOPSY: - Tubular adenoma. 12/09/2022 8:38 [facility] Attestation By the signature below, the attending physician certifies that they have 1) personally conducted a gross and/or microscopic examination of the described specimen(s), and/or personally interpreted the results of laboratory testing of the described specimen(s), and 2) personally rendered or confirmed the above diagnosis. 12/09/2022 8:38 [facility] at 0838 Clinical History Duodenal nodule, colon cancer screen 12/09/2022 8:38 [facility] Gross Description A. Received in [...] B1. Katelynn Janie 12/06/2022 7:54 12/09/2022 8:38 [facility] Performing Lab [facility] 12/09/2022 8:38 [facility] Scanned Images 12/09/2022 8:38 [facility] Tissue ENTIRE COLON / Unknown 12/05/2022 10:22 EDT 12/05/2022 17:58 EDT Tissue specimen (specimen) COLON STRUCTURE / Unknown 12/05/2022 10:22 EDT 12/05/2022 17:58 EDT Mac Delacruz MD PATHOLOGY ORDERABLES [facility] [address] [place] [address] documented in this encounter Visit Diagnoses Diagnosis Calculus of ureter Other diseases of stomach and duodenum documented in this encounter Care Teams Gas Distribution Supervisor Relationship Specialty Start Date End Date Ramiro Cardenas MD [address] [place], [place] [phone] PCP - General 04/24/09 documented as of this encounter
--- OUTSIDE RECORDS SUMMARY | 2024-05-31 21:18 | XMS_ITS | Encounter Summary ---
Author Organization [facility] Address [address] [place] [address] Care Team Providers Care Employment Counselor Name Role Phone Ramiro Cardenas MD Primary Care Provider [phone] Encounter Details Date Type Department Care Team [...] filedocumented in this encounter Care Teams Employment Counselor Relationship Specialty Start Date End Date Ramiro Cardenas MD [address] [place] [address] PCP - General 04/24/09 documented as of this encounter
--- OUTSIDE RECORDS SUMMARY | 2024-05-31 21:18 | XMS_ITS | Encounter Summary ---
Author Organization [facility] Address [address] [place] [address] Care Team Providers Care Industrial Design Engineer Name Role Phone Ramiro Cardenas MD Primary Care Provider [phone] Reason for Visit * Reason Onset Date Comments Post-OP Follow Up 05/16/2022 POW#1 CE PCIOL , left eye Encounter Details Date Type Department Care Team (Latest Contact Info) Description 05/16/2022 9:15 EDT Post-op Visit [facility] Ophthalmology [facility] [address] [place] [address] Ezequiel Andrea MD [address] [place] [phone] Cataract extraction status of eye, left (Primary [...] pole Refraction Manifest Refraction (Auto) Sphere Cylinder [place] Right -0.25 +0.25 175 Left -0.25 +0.25 [...] posterior pole Manifest Refraction (Auto) Sphere Cylinder [place] Right eye -0.25 +0.25 175 Left eye -0.25 +0.25 143 Care Teams Industrial Design Engineer Relationship Specialty Start Date End Date Ramiro Cardenas MD [address] [place] [address] PCP - General 04/24/09 documented as of this encounter
--- OUTSIDE RECORDS SUMMARY | 2024-05-31 21:18 | XMS_ITS | Encounter Summary ---
Author Organization [facility] Address [address] [place] [address] Care Team Providers Care Carpenter Streetcar Name Role Phone Ramiro Cardenas MD Primary Care Provider [phone] Encounter Details Date Type Department Care Team [...] on filedocumented in this encounter Care Teams Carpenter Streetcar Relationship Specialty Start Date End Date Ramiro Cardenas MD [address] [place] [address] PCP - General 04/24/09 documented as of this encounter
--- OUTSIDE RECORDS SUMMARY | 2024-05-31 21:18 | XMS_ITS | Clinical Summary ---
Author Organization [facility] Address [address] [place] [address] Care Team Providers Care Gas And Oil Checker Name Role Phone Ramiro Cardenas MD Primary Care Provider [phone] Allergies Active Allergy Reactions Criticality Noted Date [...] Overview: Added automatically from request for surgery [id number] Combined forms of age-related cataract of right eye 02/27/2022 Overview: Added automatically from request for surgery [id number] Surgical History Surgery Date Site/Laterality Comments CHOLECYSTECTOMY [...] Screen 1975 Hepatitis B Vaccine (1 of 3 - 19+ 3-dose series) 12/17 COVID-19 Vaccine ( season) 2024 Medical Devices Implanted Type Area Board Stacker Device Identifier Shelf Expiration Date Model / Serial / Lot Lens Intraocular Toric Astigmatism Correction Foldable +20.0d Acrysof Iq [id number] - [id number] Implanted:Qty: 1 on 05/03/2022 by Ezequiel Andrea MD at [facility] Lens Right: Eye [employer] 05/06/2026 [id number]. [id number] / [id number] / Lens Intraocular Toric Astigmatism Correction Foldable +18.5d Acrysof Iq [id number] - [id number] Implanted:Qty: 1 on 05/10/2022 by Ezequiel Andrea MD at [facility] Lens Left: Lens [employer] [id number]. [id number] / [id number] / Advance Directives For more information, please contact: [phone] * Full Code (Latest Code Status on [...] Made the Decision? Default/Not Discussed Care Teams Gas And Oil Checker Relationship Specialty Start Date End Date Ramiro Cardenas MD [address] [place] [address] PCP - General 04/24/09
--- OUTSIDE RECORDS SUMMARY | 2024-05-31 21:18 | XMS_ITS | Encounter Summary ---
Author Organization [facility] Address [address] [place] [address] Care Team Providers Care Livestock Producer Name Role Phone Ramiro Cardenas MD Primary Care Provider [phone] Reason for Visit * Reason Comments Post-OP Follow Up POM #1 s/p CE/PCIOL, both eyes (Right: 05/03/22 & Left: 05/10/22) Encounter Details Date Type Department Care Team (Latest Contact Info) Description 06/10/2022 9:00 EDT Post-op Visit [facility] Ophthalmology [facility] [address] [place] [address] Ezequiel Andrea MD [address] [place] [phone] Cataract extraction status of eye, left (Primary [...] Type: OTCs Manifest Refraction (Auto) Sphere Cylinder [place] Add Right -0.25 Sphere Left -0.25 +0.25 141 Manifest Refraction #2 Sphere Cylinder [place] Add Right -0.25 Sphere 20/20 +1.50 Left -0.25 Sphere 20/20 +1.50 IMPRESSION & PLAN: POM #1 s/p CE/PCIOL, both eyes (Right: 05/03/22 & Left: 05/10/22) -The patient is doing well -Finished with eye drops -Recommend AT's PRN for burning -Continue use of OTC reading glasses -Resume care with local client resolution specialist. Return here as needed I have [...] OTCs Manifest Refraction #1 (Auto) Sphere Cylinder [place] Add Right eye -0.25 Sphere Left eye -0.25 +0.25 141 Manifest Refraction #2 Sphere Cylinder [place] Add Right eye -0.25 Sphere 20/20 +1.50 Left eye -0.25 Sphere 20/20 +1.50 Care Teams Livestock Producer Relationship Specialty Start Date End Date Ramiro Cardenas MD [address] [place] [address] PCP - General 04/24/09 documented as of this encounter
--- OUTSIDE RECORDS SUMMARY | 2024-05-31 21:18 | XMS_ITS | Continuity of Care Document ---
Author Organization [place] - [facility] Address [address] [place] [address] Assessment Encounter Date Assessment Date Assessment LastModified [...] hemoglobi n (Hb), fingersti ck, blood 2023 [facility], [address] [place] [address], [address], 03/24/2024 16:03:13 Referral None recorded. Procedures IV infusion, hydration , 31-60 min (PROC) 07/10/ 2024 07/10/2 024 eoleson Not available 03/24/2024 16:03:11 Surgeries None recorded. Imaging None recorded. Medication Orders None recorded. Patient TargetsNo targets recorded. Patient InstructionsNo instructions recorded. Reason for Referral Personal Banking Representative Referral for Nodu le of subcutaneous tissue of left foot provider is wondering why this pt has not been contacted yet - resending Referring Physician: Olga Marcus [facility], Encounter Date: 09/23/2023 Sleep Medicine Referral for Obstructive sleep apnea syndrome Referring Physician: Olga Marcus [facility], Encounter Date: 11/07/2023 Urologist Referral for Erect ile dysfunction Referring Physician: Olga Marcus [facility], Encounter Date: 11/07/2023 EGD Referral for Digestive s ystem finding Referring Physician: Olga Marcus [facility], Encounter Date: 11/07/2023 Plastic Surgeon Referral for Gynecomastia Referring Physician: Olga Marcus [facility], Encounter Date: 12/05/2023 Endocrinology Referral for T ype 2 diabetes mellitus without complication Referring Physician: Olga Marcus [facility], Encounter Date: 02/23/2024 Vascular Surgeon Referral fo r Cramp in lower limb Referring Physician: Olga Marcus [facility], Encounter Date: 02/23/2024 Hoeing Row Boss Referral f or Type 2 diabetes mellitus without complication referral for Freestyle Lina 3 Referring Physician: Olga Marcus [facility], Encounter Date: 04/02/2024 Physical Therapist Referral for Pain of left shoulder joint Referring Physician: Olga Marcus [facility], Encounter Date: 04/20/2024 Results Created Date Observation Date Name Description Value Unit Range Abnormal Flag Note LastModifiedBy Organization Detail LastModifiedTime 03/24/20 24 03/24/2024 hemog lobin (Hb), finge rstic k, blood HGB 15 g/dL Not Available [address], [address], 03/24/2024 13:20:25 02/26/20 24 02/26/2024 CT imagi ng repor t Patien t Name: Charles Nick Unit #: [id number] Loc: DI Orderi ng Provid er: Quang Hernandez t #: [id number] Status : REG CLI Primar y [...] mGy-cm Ordere d By: Quang Hernandez CC: [facility] ------ ------ ------ ------ ------ [...] at the addres s above. Thank- you. [facility] [address], [place], [address] 02/26/2024 13:16:53 03/24/20 24 03/24/2024 CT imagi ng barrett holland Name: Charles Nick Unit #: [id number] Loc: ER Orderi ng Provid er: Kevin Ramos M.D. Accoun t #: [id number] Status : REG ER Primar y [...] at the addres s above. Thank- you. [facility] [address] [place], [address] 03/25/2024 04:38:41 03/26/20 24 03/25/2024 gregory olvera am EKG PATIEN T NAME: Charles Nick UNIT #: [id number] ORDERI NG PROVID ER: Kenny Garcia DO ACCOUN T #: [id number] PRIMAR Y CARE PROVID ER: Alexa CHAMBERLAIN [...] ly signed by: [id number] Cosign ed by: Angela Ville [id number] [facility] [place], [address] 03/26/2024 08:57:17 05/31/2011/0311/03/2022 imagi ng/di agnos tic resul t No [...] and Address Organization Details Recorded Time Jasmyne tay dewayne 12914868 Active 2006 Alie dorsey [place] - [facility]. 13:29:59 Nephroti c syndrome 55280657 Completed 200603/03/2007 Not Available [facility] 3 04:42:43 Chronic kidney disease stage 3 420059243 [facility] 4 13:29:40 Obstruct kong sleep apnea syndrome 90175498 Active 2013 [facility] 4 13:30:42 Anxiety 39640128 Active 2014 [facility] 4 13:29:15 Type 2 diabetes mellitus without complica tion 666776872 Active 2015 [facility] 4 13:30:59 Obesity 766845043 Active 2015 [facility] 4 13:30:35 Edema 228380227 Active 2015 [facility] 4 13:29:50 Allergy to food 053427120 Active 2016 [facility] 4 13:29:10 Adult health examinat ion Active 2018 [facility] 4 13:29:06 Erectile dysfunct ion 320822646 Active 2018 [facility] 4 13:29:54 Neuropat hy due to type 2 diabetes mellitus 73644980750 9106 Active 2020 [facility] 4 13:30:25 Screenin g for malignan t neoplasm of colon Active [facility] 4 13:30:50 Digestiv e system finding 640229124 Active 2021 Alie Crowell null, [facility]. 4 13:29:44 Vitamin B deficien cy 42244970 Active 2021 [facility] 4 13:31:03 Pre-surg mirta evaluati on Completed 202106/01/2022 Problem Code: Z01.818; Problem Code Type: ICD-10; Not Available [facility] 3 04:42:45 Bilatera l hearing loss 01645421 Active 2021 [facility], [facility] 4 13:29:19 Venereal disease screenin g Completed 202108/24/2022 Problem Code: Z11.3; Problem Code Type: ICD-10; Not Available [facility] 3 04:42:45 Hypomagn esemia 876159297 Active 2022 [facility] 4 13:30:11 Secondar y polycyth emia 07352467 Active 2022 [facility] 4 13:30:54 Kidney stone 78114569 Active 2022 [facility] 4 13:30:16 History of polyp of colon 078684760 Active 2022 [facility] 4 13:30:07 Disorder of nasal sinus 1988918 Active 2022 OLGA MARCUS, FOAM MOLDER [address], [place], [address] , [facility]. 4 08:08:16 Nonalcoh olic steatohe patitis 736679204 Active 2022 [facility] 4 13:30:32 Body mass index 30+ - obesity 065186458 Active 2022 [facility] 4 13:29:23 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 mellitus 653280204 Active 2022 [facility] 4 13:30:46 Nephroti c syndrome , diffuse membrano us glomerul onephrit is 365620401 Active 2022 [facility] 4 13:30:20 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 29238914227 00 Active 2022 [facility] 4 13:30:03 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 78604210669 00 Completed 202004/10/2021 Problem Code: E11.621; Problem Code Type: ICD-10; [facility] 4 13:30:03 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 54483663480 00 Completed 202007/25/2022 Problem Code: E11.621; Problem Code Type: ICD-10; [facility] 4 13:30:03 Hypergly cemia due to type 2 diabetes mellitus 99092562940 9109 Completed 201608/15/2017 Problem Code: E11.65; Problem Code Type: ICD-10; Not Available [facility] 3 04:42:47 Phimosis 870867085 Completed 201704/29/2022 Problem Code: N47.1; Problem Code Type: ICD-10; Not Available [facility] 3 04:42:47 Snoring 00140661 Completed 201303/01/2016 Not Available [facility] 3 04:42:48 Imaging of abdomen abnormal 791754140 Completed 202212/20/2022 Problem Code: R93.5; Problem Code Type: ICD-10; Not Available [facility] 3 04:42:48 Adult health examinat ion Completed 201403/01/2016 Problem Code: Z00.00; Problem Code Type: ICD-10; [facility] 4 13:29:06 Obesity 492565710 Completed 200606/11/2023 Alie dorsey [facility] 4 13:30:35 Fatigue 70129799 Completed 201303/01/2016 Not Available [facility] 3 04:42:48 Acute upper respirat ory infectio n 30039876 Completed 202004/29/2022 Problem Code: J06.9; Problem Code Type: ICD-10; Not Available [facility] 3 04:42:49 Nausea 182890851 Completed 202212/20/2022 Problem Code: R11.0; Problem Code Type: ICD-10; Not Available [facility] 3 04:42:49 Type 2 diabetes mellitus without complica tion 807843510 Completed 202201/10/2023 Problem Code: E11.9; Problem Code Type: ICD-10; [facility] 4 13:30:59 Dyssomni a 31374747 Completed 201303/01/2016 Problem Code: 780.59; Problem Code Type: ICD-9; Not Available [facility] 3 04:42:49 Acute bronchit is 13000122 Completed 201708/09/2019 Problem Code: J20.9; Problem Code Type: ICD-10; Not Available [facility] 3 04:42:49 Nausea and vomiting 16050948 Completed 202107/25/2022 Problem Code: R11.2; Problem Code Type: ICD-10; Not Available [facility] 3 04:42:50 Sleep apnea 30236842 Completed 201306/11/2023 Problem Code: 780.57; Problem Code Type: ICD-9; Not Available [facility] 3 04:42:50 Disturba nce of consciou sness 1068780 Completed 201303/01/2016 Problem Code: 780.09; Problem Code Type: ICD-9; Not Available [facility] 3 04:42:50 Acute sinusiti s 20913640 Completed 202004/10/2021 Problem Code: J01.90; Problem Code Type: ICD-10; Not Available [facility] 3 04:42:50 Balaniti s 39057660 Completed 201608/15/2017 Problem Code: N48.1; Problem Code Type: ICD-10; Not Available [facility] 3 04:42:51 Sleep disorder 76924966 Completed 201303/01/2016 Problem Code: 780.50; Problem Code Type: ICD-9; Not Available [facility] 3 04:42:51 Nodule of subcutan eous tissue of left foot 23262924447 554052 Active 2023 OLGA MARCUS APRN [address], [facility] [address] , [facility]. 4 08:13:06 Benign prostati c hyperpla mercy 440628609 Active 2023 Alie dorsey, [facility]. 4 13:31:06 Headache 02857856 Active 2023 OLGA MARCUS APRN [address], [facility] [address] , [facility], [facility]. 4 08:57:45 Gynecoma stia 9435744 Active 2023 Alie dorsey, [facility]. 4 13:31:13 Ulcer of left foot 749043663 Active 2023 ARNALDO GOMEZ CMA null, [facility] 4 09:47:50 Fibromat osis of plantar fascia of left foot 57922596903 228053 Active 2023 Alie Crowell willian, [facility] 4 13:31:10 Carcinom a of duodenum 824031024 Active 2023 EGD 01/06, biopsy at that time OLGA MARCUS APRN [address], [facility] [address] , [facility] 4 09:30:26 Pain of left shoulder joint 43178559913 805312 Active 2023 OLGA MARCUS APRN [address], [facility] [address] , [facility] 4 09:14:45 Cramp in lower limb 442635757 Active 2023 OLGA MARCUS APRN [address], [facility] [address] , [facility] 4 09:15:29 Pain in right hip joint 38049090268 9102 Active 2023 OLGA MARCUS APRN [address], [facility] [address] , [facility] 4 09:19:09 Prolonge d QT interval 401076424 Active 2023 OLGA MARCUS APRN [address], [facility] [address] , [facility] 4 09:53:55 Hypergly cemia due to type 1 diabetes mellitus 32158427447 9101 Active 2023 OLGA MARCUS APRN [address], [facility] [address] , [facility] 4 14:16:49 Notes:*Problem Name: Duodena l polyp *Problem Status: active *Comments: *Problem Code: K31.7 *Problem Code Type: ICD-10 *Note Date: 2022 Problem Notes None recorded. Procedures Surgical History Date Name Laterality Status Provider Name and Address Organization Details Recorded Time 4 IV insert completed Kinsey Oliveira RN [facility] 03/24/2024 15:58:08 4 endoscopy completed ARNALDO GOMEZ CMA [facility] 01/02/2024 15:34:11 Imaging Results None recorded. Procedure Notes None recorded. Medical Equipment None Reported. Allergies Allergen ID Allergen Name Allergen Category Reaction Reaction Severity Criticality Documentation Date Start Date Code Code System Note Provider Name and Address Organization Details Recorded Time 61260 Medicinal product containin g penicilli n and acting as antibacte rial agent (product) medicatio n other mild Not available 11/29/20232006 22990 05 SNOMED Swell ing of cole Lim [facility] 4 13:58:03 Medications Name Sig Start [...] route as needed. 2023 active Per [facility] d/c summary 04/01/24 Not [...] mg capsule 05/27 completed Stopped per [facility] d/c summary 04/01/24 Not [...] DAY NEEDED 05/27 completed Stopped per [facility] d/c summary 04/01/24 Not [...] day by oral route. active Per [facility] d/c summary continue 04/01/24 [...] EVERY DAY 04/23 completed Stopped per [facility] d/c summary 04/01/24 Not [...] Available No t Available FreeStyle Lina [address] [place] USE DIRECTED active Not Available Not Available [...] mm[Hg] 84 mm[Hg] 62 mm[Hg] STEPHANI JOHNSON [facility] 13:16:26 Social History Question Answer Notes LastModified [...] Age of this Age Resolved Age Notes LastModified by Organization Details LastModified Time Brother Family history of diabetes mellitus type 1 [email or web address] Not available 2022 04:00:48 Father Family history of diabetes mellitus type 1 [email or web address] Not available 2022 04:00:48 Sister Family history of diabetes mellitus type 1 [email or web address] Not available 2022 04:00:48 Notes:*Problem: Mother: Dece ased age 64- DM [...] virus, trivalent, PF 05/27/2024 completed OLGA MARCUS, FOAM MOLDER [address], [place], [address], [facility] 05/27/2024 14:49:23 Td (adult), 2 Lf tetanus toxoid, preservative free, adsorbed 04/22/2017 completed Not Available [facility] 07/25/2023 06:32:54 Tdap 02/27/2007 completed Not Available [facility] 06:32:54 Influenza, split virus, quadrivalent, PF 09/21/2020 completed Not Available [facility] 07/25/2023 06:32:54 Influenza, split virus, quadrivalent, PF 06/19/2021 completed Not Available [facility] 07/25/2023 06:32:54 Influenza, split virus, quadrivalent, PF 08/02/2019 completed Not Available [facility] 07/25/2023 06:32:54 COVID-19 vaccine, vector-nr, rS-Ad26, PF, 0.5 mL 01/19/2021 completed Not Available [facility] 07/25/2023 06:32:54 pneumococcal polysaccharide PPV23 09/21/2020 completed Not Available [facility] 2022 06:32:54 influenza, unspecified formulation 07/05/2016 completed Not Available [facility] 07/25/2023 06:32:54 influenza, unspecified formulation 07/16/2017 completed Not Available [facility] 07/25/2023 06:32:54 Influenza, split virus, quadrivalent, PF 06/17/2023 completed Not Available [facility] 09/26/2023 05:33:26 Past Encounters Encounter ID Performer Location Encounter Start Date Encounter Closed Date Diagnosis/Indication Diagnosis SNOMED-CT Code Diagnosis ICD10 Code [id number] OLGA MARCUS [address] [address] 02/23/2024 08:58:06 02/23/2024 09:59:23 Type 2 diabetes mellitus without complication 966060341 E11.9 E11.40 Essential hypertension 60070780 I10 N18.9 R60.9 Anxiety 64127312 F41.9 F32.A Z73.3 Obstructiv e sleep apnea syndrome 48368486 G47.33 Body mass index 30+ - obesity 455471003 Z68.36 Digestive system finding 030731737 R19.8 Nonalcohol ic steatohepatitis 568497193 K75.81 Secondary polycythemia 50819175 D75.1 Disorder o f nasal sinus 9477464 J34.9 Nephrotic syndrome, diffuse membranous glomerulonephritis 027660194 N04.20 Nodule of subcutaneous tissue of left foot 1603547094 6411026 R22.42 Erectile dysfunction 860 855100 F52.21 Benign pro static hyperplasia 441032328 N40.0 Carcinoma of duodenum 25 6271810 C17.0 Pain of le ft shoulder joint 8417825026 6593515 M25.512 Cramp in lower limb 4499 65195 R25.2 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 7105010220 100 E11.621 Pain in ri ght hip joint 3139113582 90349 M25.003 [id number] GURJIT WILLIS MD [address] [address] 03/15/2024 14:48:33 03/15/2024 15:46:20 Carcinoma of duodenum 524268598 C17.0 [id number] ADA HAMM MD [address] [address] 03/24/2024 13:12:40 03/24/2024 14:17:10 Tachycardia 7445435 R00.0 Lethargy 389657681 R53.8 3 Low blood pressure 05253 003 I95.9 Health Concerns Section Related Observation LastModified by Organization Detai ls LastModified Time None Recorded Concern Status LastModified by Organization Details LastModified Time None Recorded Payers Encounter Date Sequence Insurance Name Policy Number Policy Loo Covered Member ID Loo Member ID Guarantor Name 03/24/2024 1 [facility] [id number] Charles Hernandez [id number] Charles Nick Notes Date Note Type Note [...] lot. ADA HAMM MD [address], [place], [address], [facility]. 03/24/2024 16:04:59
--- OUTSIDE RECORDS SUMMARY | 2024-05-31 21:18 | XMS_ITS | Encounter Summary ---
Author Organization [facility] Address [address] [place] [address] Care Team Providers Care Airbrush Painter Name Role Phone Ramiro Cardenas MD Primary Care Provider [phone] Reason for Visit * Auth/Cert Specialty Diagnoses / Procedures Referred By Janak holland Referred To Contact Diagnoses Combined forms of age-related cataract of left eye Combined forms of age-related cataract of left eye [H25.812] Procedures [place] XCAPSL CTRC RMVL INSJ IO LENS PROSTH W/O ECP EXTRACTION, CATARACT, EXTRACAPSULAR, WITH IOL INSERTION ORA - Toric Referral ID Status Reason Start Date Expiration Date Visits Re quested Visits Authorized [id number] 1 1 Encounter Details Date Type Department Care Team (Late st Contact Info) Description 05/10/2022 11:[address] 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 . ?? Obesity. [...] mg documented in this encounter Care Teams Airbrush Painter Relationship Specialty Start Date End Date Ramiro Cardenas MD [address] [place] [address] PCP - General 04/24/09 documented as of this encounter
--- OUTSIDE RECORDS SUMMARY | 2024-05-31 21:18 | XMS_ITS | Encounter Summary ---
Author Organization [facility] Address [address] [place] [address] Care Team Providers Care Network Security Architect Name Role Phone Ramiro Cardenas MD Primary Care Provider [phone] Reason for Visit * Reason Comments Post-OP Follow Up Same day post op Cat aract surgery - Left eye Encounter Details Date Type Department Care Team (Latest Contact Info) Description 05/10/2022 13:30 EDT Post-op Visit [facility] Ophthalmology [facility] [address] [place], [place] [id number] Ezequiel Andrea MD [address] [place] [address] Cataract extraction status of eye, left (Primary [...] hazy view to posterior pole Care Teams Network Security Architect Relationship Specialty Start Date End Date Ramiro Cardenas MD [address] [place] [address] PCP - General 04/24/09 documented as of this encounter
--- OUTSIDE RECORDS SUMMARY | 2024-05-31 21:18 | XMS_ITS | Continuity of Care Document ---
Author Organization [place] - [facility] Address [address] [place] [address] Assessment No assessment recorded. Plan of Treatment [...] Patient InstructionsNo instructions recorded. 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 Analyst Referral f or Type 2 diabetes mellitus without complication referral for Freestyle Lina 3 Referring Physician: Olga Marcus [facility], Encounter Date: 04/02/2024 Physical Therapist Referral for Pain of left shoulder joint Referring Physician: Olga Marcus [facility], Encounter Date: 04/20/2024 Results Created Date Observation Date Name Description Value Unit Range Abnormal Flag Note LastModifiedBy Organization Detail LastModifiedTime 02/26/20 24 02/26/2024 CT imagi ng barrett holland Name: Charles Nick Unit #: [id number] Loc: DI Orderi ng Provid er: Quang Hernandez t #: [id number] Status : REG CLI Primar y [...] Ordere d By: Quang Hernandez CC: [email or web address] [facility] ------ ------ ------ ------ [...] at the addres s above. Thank- you. [facility] [address], [place], [address] 02/26/2024 13:16:53 03/24/20 24 03/24/2024 CT imagi ng repor t Patien t Name: Charles Nick Unit #: [id number] Loc: ER Orderi ng Provid er: Rayo Ramos M.D. Accoun t #: [id number] Status : REG ER Primar y Care Provid er: Jaey Chamberlain Date of Exam: 07/08 Sex: M [...] at the addres s above. Thank- you. [address] [place], [address] 03/25/2024 04:38:41 03/26/20 24 03/25/2024 elect gerardo johnsonlorenza am EKG JALYN Holland NAME: Charles Nick UNIT #: [id number] [facility] ER: Kenny Garcia DO ACCOUN T #: [id number] PRIM[facility] Y [facility] ER: Alexa CHAMBERLAIN APRN DATE/T JOHN OF [...] signed by: [id number] Cosign ed by: haley [facility] [address], [place], [address] 03/26/2024 08:57:17 05/31/20 24 11/03/2022 imagi ng/di agnos tic [...] 05/31 00:17:04 05/31/20 24 09/23/2022 imagi ng/di nba tic resul t No observ ation record ed. [email or web address] Not Available 05/31 00:17:57 Result Notes None recorded. Problems Name Problem SNOMED Code Status Onset Date Resolution Date Notes Provider Name and Address Organization Details Recorded Time Jasmyne l hyperten dewayne 36056471 Active 2006 Alieher Crowell [facility] 4 13:29:59 Nephroti c syndrome 40038800 Completed 200603/03/2007 Not Available [facility] 3 04:42:43 Chronic kidney disease stage 3 254376054 Active 2010 Alieher Crowell [facility] 4 13:29:40 Obstruct kong sleep apnea syndrome 58913781 [facility] 4 13:30:42 Anxiety 18323353 Active 2014 [facility] 4 13:29:15 Type 2 diabetes mellitus without complica tion 381570930 Active 2015 Alie Mervat [facility] 4 13:30:59 Obesity 101600094 Active 2015 Alie Mervat [facility] 4 13:30:35 Edema 448560941 Active 2015 [facility] 4 13:29:50 Allergy to food 936580329 Active 2016 Alie Mervat [facility] 4 13:29:10 Adult health examinat ion Active 2018 Alie Mervat [facility] 4 13:29:06 Erectile dysfunct ion 228608030 Active 2018 [facility] 4 13:29:54 Neuropat hy due to type 2 diabetes mellitus 74895544779 9106 [facility] 4 13:30:25 Screenin g for malignan t neoplasm of colon Active 2020 [facility] 4 13:30:50 Digestiv e system finding 133428261 Active 2021 [facility] 4 13:29:44 Vitamin B deficien cy 04076504 Active 2021 [facility] 4 13:31:03 Pre-surg mirta evaluati on Completed 202106/01/2022 Problem Code: Z01.818; Problem Code Type: ICD-10; Not Available [facility] 3 04:42:45 Bilatera l hearing loss 35912734 Active 2021 [facility] 4 13:29:19 Venereal disease screenin g Completed 202108/24/2022 Problem Code: Z11.3; Problem Code Type: ICD-10; Not Available [facility] 3 04:42:45 Hypomagn esemia 691418548 [facility] 4 13:30:11 Secondar y polycyth emia 09959031 Active 2022 [facility] 4 13:30:54 Kidney stone 43607882 Active 2022 [facility] 4 13:30:16 History of polyp of colon 137895856 Active 2022 Alie dorsey, [facility], [facility]. 4 13:30:07 Disorder of nasal sinus 2646246 Active 2022 OLGA MARCUS, CHIPPER OPERATOR [address], [place], [address] , [facility], [facility] 4 08:08:16 Nonalcoh olic steatohe patitis 233977117 Active 2022 Alie Mervat [facility], [facility], [facility] 4 13:30:32 Body mass index 30+ - obesity 651755826 Active 2022 Alie Mervat [facility] 4 13:29:23 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 mellitus 994854359 Active 2022 [facility] 4 13:30:46 Nephroti c syndrome , diffuse membrano us glomerul onephrit is 115568599 Active 2022 Alie Mervat [facility], [facility] 4 13:30:20 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 51071670197 00 Active 2022 [facility] 4 13:30:03 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 78530015663 00 Completed 202004/10/2021 Problem Code: E11.621; Problem Code Type: ICD-10; [facility] 4 13[facility]30:03 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 77985349887 00 Completed 202007/25/2022 Problem Code: E11.621; Problem Code Type: ICD-10; Alie dorsey, [facility], [facility]. 4 13:30:03 Hypergly cemia due to type 2 diabetes mellitus 92065980566 9109 Completed 201608/15/2017 Problem Code: E11.65; Problem Code Type: ICD-10; Not Available [facility] 3 04:42:47 Phimosis 093712794 Completed 201704/29/2022 Problem Code: N47.1; Problem Code Type: ICD-10; Not Available [facility] 3 04:42:47 Snoring 84144703 Completed 201303/01/2016 Not Available [facility] 3 04:42:48 Imaging of abdomen abnormal 368299804 Completed 202212/20/2022 Problem Code: R93.5; Problem Code Type: ICD-10; Not Available [facility] 3 04:42:48 Adult health examinat ion Completed 201403/01/2016 Problem Code: Z00.00; Problem Code Type: ICD-10; [facility] 4 13:29:06 Obesity 104161771 Completed 200606[facility]11/2023 [facility] 4 13:30:35 Fatigue 44685812 Completed 201303/01/2016 Not Available [facility] 3 04:42:48 Acute upper respirat ory infectio n 13403098 Completed 202004/29/2022 Problem Code: J06.9; Problem Code Type: ICD-10; Not Available [facility] 3 04:42:49 Nausea 609190402 Completed 202212/20/2022 Problem Code: R11.0; Problem Code Type: ICD-10; Not Available [facility] 3 04:42:49 Type 2 diabetes mellitus without complica tion 499447635 Completed 202201/10/2023 Problem Code: E11.9; Problem Code Type: ICD-10; [facility] 4 13:30:59 Dyssomni a 14920386 Completed 201303/01/2016 Problem Code: 780.59; Problem Code Type: ICD-9; Not Available [facility] 3 04:42:49 Acute bronchit is 42354806 Completed 201708/09/2019 Problem Code: J20.9; Problem Code Type: ICD-10; Not Available [facility] 3 04:42:49 Nausea and vomiting 61615779 Completed 202107/25/2022 Problem Code: R11.2; Problem Code Type: ICD-10; Not Available [facility] 3 04:42:50 Sleep apnea 53464117 Completed 201306/11/2023 Problem Code: 780.57; Problem Code Type: ICD-9; Not Available [facility] 3 04:42:50 Disturba nce of consciou sness 9648548 Completed 201303/01/2016 Problem Code: 780.09; Problem Code Type: ICD-9; Not Available [facility] 3 04:42:50 Acute sinusiti s 93247771 Completed 202004/10/2021 Problem Code: J01.90; Problem Code Type: ICD-10; Not Available [facility] 3 04:42:50 Balaniti s 52409485 Completed 201608/15/2017 Problem Code: N48.1; Problem Code Type: ICD-10; Not Available [facility] 3 04:42:51 Sleep disorder 80929739 Completed 201303/01/2016 Problem Code: 780.50; Problem Code Type: ICD-9; Not Available [facility] 3 04:42:51 Nodule of subcutan eous tissue of left foot 50460768468 693409 Active 2023 OLGA MARCUS, CHIPPER OPERATOR [address], [place], [address] , [facility], [facility]. 4 08:13:06 Benign prostati c hyperpla mercy 809690904 Active 2023 Alie dorsey, [facility]. 4 13:31:06 Headache 34944247 Active 2023 OLGA MARCUS APRN [address], [place], [address] , [facility]. 4 08:57:45 Gynecoma stia 3684012 Active 2023 Alie Crowell null, [facility] 4 13:31:13 Ulcer of left foot 982800058 Active 2023 ARNALDO GOMEZ CMA null, [facility] 4 09:47:50 Fibromat osis of plantar fascia of left foot 57832655351 376146 Active 2023 Alie Crowell [facility], [facility] 4 13:31:10 Carcinom a of duodenum 721057213 Active 2023 EGD 01/06, biopsy at that time OLGA MARCUS APRN [address], [facility] [address] , [facility] 4 09:30:26 Pain of left shoulder joint 43537576596 773964 Active 2023 OLGA MARCUS APRN [address], [place], [address] , [facility]. 4 09:14:45 Cramp in lower limb 004082768 Active 2023 OLGA MARCUS APRN [address], [place], [address] , [facility]. 4 09:15:29 Pain in right hip joint 75862119951 9102 Active 2023 OLGA MARCUS APRN [address], [place], [address] , [facility]. 4 09:19:09 Prolonge d QT interval 374769196 Active 2023 OLGA MARCUS APRN [address], [place], [address] , [facility]. 4 09:53:55 Hypergly cemia due to type 1 diabetes mellitus 13050424249 9101 Active 2023 OLGA MARCUS, YOCASTA [address], [place], [address] , [facility] 4 14:16:49 Notes:*Problem Name: Duodena l polyp *Problem Status: active *Comments: *Problem Code: K31.7 *Problem Code Type: ICD-10 *Note Date: 2022 Problem Notes None recorded. Procedures Surgical History Date Name Laterality Status Provider Name and Address Organization Details Recorded Time 4 IV insert completed Kinsey Oliveira RN [facility], [facility] 03/24/2024 15:58:08 4 endoscopy completed ARNALDO GOMEZ CMA [facility], [facility] 01/02/2024 15:34:11 Imaging Results None recorded. Procedure Notes None recorded. Medical Equipment None Reported. Allergies Allergen ID Allergen Name Allergen Category Reaction Reaction Severity Criticality Documentation Date Start Date Code Code System Note Provider Name and Address Organization Details Recorded Time 09616 Medicinal product containin g penicilli n and acting as antibacte rial agent (product) medicatio n other mild Not available 11/29/20232006 73386 05 SNOMED Swell ing of throa t Loren Carina [facility], [facility] 4 13:58:03 Medications Name Sig Start [...] oral route as needed. 2023 active Per [facility] [place] 04/01/24 Not Available Not Available [...] 150 mg capsule 05/27 completed Stopped per [facility] [place] summary 04/01/24 Not Available Not Available [...] EVERY DAY NEEDED 05/27 completed Stopped per [facility] [place] summary 04/01/24 Not Available Not Available [...] a day by oral route. active Per [facility] [place] summary continue 04/01/24 Not Available Not [...] MOUTH EVERY DAY 04/23 completed Stopped per [facility] [place] summary 04/01/24 Not Available Not Available [...] Available No t Available FreeStyle Lina 3 Wall USE DIRECTED active Not Available Not Available No t Available Vitals Date Recorded Body height Body mass index (BMI) Body weight Oxygen saturation Oxygen saturation in Arterial blood by Pulse oximetry Heart rate Systolic blood pressure Diastolic blood pressure Provider Name and Address Organization Details Last Updated DateTime 4 186.69 cm 34.4 kg/m2 667471. 39 g 97 % 97 % 116 /min 128 mm[Hg] 66 mm[Hg] MELANIE MEIER MA [facility], [facility] 15:00:31 Social History Question Answer Notes LastModified by Organizat ion Details LastModified Time Tobacco Smoking Status Never Smoker BRI NELSON, [facility], [facility]. 12/05/2023 08:46:50 What Was The Date Of [...] trivalent, PF 05/27/2024 completed OLGA MARCUS APRN [facility] [address], [place], [address], [facility]. 05/27/2024 14:49:23 Td (adult), 2 Lf tetanus toxoid, preservative free, adsorbed 04/22/2017 completed Not Available [facility] 07/25/2023 06:32:54 Tdap 02/27/2007 completed Not Available [facility] 06:32:54 Influenza, split virus, quadrivalent, PF 09/21/2020 completed Not Available [facility] 07/25/2023 06:32:54 Influenza, split virus, quadrivalent, PF 06/19/2021 completed Not Available [facility] 07/25/2023 06:32:54 Influenza, split virus, quadrivalent, PF 08/02/2019 completed Not Available [facility] 07/25/2023 06:32:54 COVID-19 vaccine, vector-nr, rS-Ad26, PF, 0.5 mL 01/19/2021 completed Not Available [facility] 07/25/2023 06:32:54 pneumococcal polysaccharide PPV23 09/21/2020 completed Not Available [facility] 2022 06:32:54 influenza, unspecified formulation 07/05/2016 completed Not Available [facility] 07/25/2023 06:32:54 influenza, unspecified formulation 07/16/2017 completed Not Available [facility] 07/25/2023 06:32:54 Influenza, split virus, quadrivalent, PF 06/17/2023 completed Not Available [facility] 09/26/2023 05:33:26 Past Encounters Encounter ID Performer Location Encounter Start Date Encounter Closed Date Diagnosis/Indication Diagnosis SNOMED-CT Code Diagnosis ICD10 Code [id number] OLGA MARCUS APRN [address] [address] 02/23/2024 08:58:06 02/23/2024 09:59:23 Type 2 diabetes mellitus without complication 298407342 E11.9 E11.40 Essential hypertension 47901460 I10 N18.9 R60.9 Anxiety 40694789 F41.9 F32.A Z73.3 Obstructiv e sleep apnea syndrome 37415933 G47.33 Body mass index 30+ - obesity 376283010 Z68.36 Digestive system finding 004007858 R19.8 Nonalcohol ic steatohepatitis 920453717 K75.81 Secondary polycythemia 00712851 D75.1 Disorder o f nasal sinus 6842113 J34.9 Nephrotic syndrome, diffuse membranous glomerulonephritis 715277772 N04.20 Nodule of subcutaneous tissue of left foot 0687569909 3336166 R22.42 Erectile dysfunction 860 109460 F52.21 Benign pro static hyperplasia 316821674 N40.0 Carcinoma of duodenum 25 1644569 C17.0 Pain of le ft shoulder joint 9729781871 1820361 M25.512 Cramp in lower limb 4499 38034 R25.2 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 8772885232 100 E11.621 Pain in ri ght hip joint 2698902259 23023 M25.960 [id number] GURJIT WILLIS MD [address] [address] 03/15/2024 14:48:33 03/15/2024 15:46:20 Carcinoma of duodenum 859295579 C17.0 Health Concerns Section Related Observation LastModified by Organization Detai ls LastModified Time None Recorded Concern Status LastModified by Organization Details LastModified Time None Recorded Payers Encounter Date Sequence Insurance Name Policy Number Policy Loo Covered Member ID Loo Member ID Guarantor Name 03/15/2024 1 [id number] Charles Hernandez [id number] Charles Nick Notes Date Note Type Note Provider Name and Address Organization Details Recorded Time 03/15/2024 text/html HPI Notes: Sandy nt here for some hospital discharge follow-up. 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 [...] range GURJIT WILLIS MD [address], [place], [address], [facility]. 03/17/2024 10:23:16
--- OUTSIDE RECORDS SUMMARY | 2024-05-31 21:18 | XMS_ITS | Continuity of Care Document ---
Author Organization [place] - [facility] Address [address] [place] [address] Assessment Encounter Date Assessment Date Assessment LastModified by Organization Details LastModified Time 04/23/2024 04/23/2024 The total time devoted to today's encounter, including both the lkps-yn-qenb time with the patient and/or family/caregi charity and bcm-voiu-pj-f elida time I personally spent is 40 [...] n A1C, fingersti ck 2023 08/[address] [facility], [address] [place], [address], 04/23/2024 13:02:39 Referral None recorded. Procedures None recorded. Surgeries None recorded. Imaging None recorded. Medication Orders None recorded. Patient TargetsNo targets recorded. Patient Instructions Encounter Date Encounter Id Patient Instructions Last Modified By Organization Details Last Modified Time 04/23/2024 [id number] Increase semglee to 13 units daily for 7 days, then if sugar still greater than 120, increase to 16 units. Not available 04/23/2024 12:39:31 Reason for Referral Claim Taker Referral for Nodu le of subcutaneous tissue of left foot provider is wondering why this pt has not been contacted yet - resending Referring Physician: Olga Marcus [facility], Encounter Date: 09/23/2023 Sleep Medicine Referral for Obstructive sleep apnea syndrome Referring Physician: Olga Marcus [facility], Encounter Date: 11/07/2023 Urologist Referral for Erect ile dysfunction Referring Physician: Olga Marcus [facility], Encounter Date: 11/07/2023 EGD Referral for Digestive s ystem finding Referring Physician: Olga Marcus [facility], Encounter Date: 11/07/2023 Plastic Surgeon Referral for Gynecomastia Referring Physician: Olga Marcus [facility], Encounter Date: 12/05/2023 Endocrinology Referral for T ype 2 diabetes mellitus without complication Referring Physician: Olga Marcus [facility], Encounter Date: 02/23/2024 Vascular Surgeon Referral fo r Cramp in lower limb Referring Physician: Olga Marcus [facility], Encounter Date: 02/23/2024 Director Of Exhibits Referral f or Type 2 diabetes mellitus without complication referral for Freestyle Lina 3 Referring Physician: Olga Marcus [facility], Encounter Date: 04/02/2024 Physical Therapist Referral for Pain of left shoulder joint Referring Physician: Olga Marcus [facility], Encounter Date: 04/20/2024 Results Created Date Observation Date Name Description Value Unit Range Abnormal Flag Note LastModifiedBy Organization Detail LastModifiedTime 04/23/20 24 04/23/2024 hemog lobin A1C, finge rstic k hemoglobin A1C 8.0 % <5.7 Not Available [address], [address], 04/23/2024 11:48:33 03/24/20 24 03/24/2024 CT imagi ng repor t Patien t Name: Charles Nick Unit #: [id number] Loc: ER Orderi ng Provid er: Rayo Ramos M.D. Accoun t #: [id number] Status : REG ER Primar y [...] REPOSI TORY: [facility] submit dotty to the [facility] al Radiol ogy Data Regist ry (NRDR) Dose Index Regist ry (DIR) with the [place] meg ferro of Radiol ogy (ACR). RADIAT ION OPTIMI ZATION : All CT scans at this [facility] use at least one of these [...] error, please notify us immedi ately at [phone] and return the origin al report to us at the addres s above. Thank- you. [facility] [address], [place], [address] 03/25/2024 04:38:41 03/26/20 24 03/25/2024 elect gerardo olvera am EKG JALYN Holland NAME: Charles Nick UNIT #: [id number] ORDERI NG PROVID ER: Kenny Garcia DO ACCOUN T #: [id number] PRIMAR Y CARE PROVID ER: Alexa CHAMBERLAIN APRN DATE/T JOHN OF SERVIC E: 150 : 1975 PERFOR HARPER LOCATI ON: ER ------ ------ --- APPROV ED REPORT ------ ------ -- Exam: Restin g ECG Reason for Exam: Hypote nsion Jalyn holland Locati on: E HR:112 bpm ECG Measur ements Heart Rate 112 AXIS PA 152 P 54 QRSd 103 QRS 70 [...] ECG Measur ements Heart Rate 112 AXIS PA 152 P 54 QRSd 103 QRS 70 QT 371 T -52 QTc 507 Conclu dewayne Sinus tachyc ardia. ..rate > 99 Nonspe cific T abnorm alitie s, inferi or leads. ..T <-0.10 mV, II III aVF Prolon ged QT interv al...Q Tc >500mS I have review ed and interp reted ECG and agree with [facility] re janeth dotty interp retati on. I have review ed and I agree with the emerge ncy room physic steph's ECG interp retati on. Electr onical ly signed by: [id number] Cosign ed by: [email or web address] [facility] [address], [place], [address] 03/26/2024 08:57:17 05/31/20 24 11/03/2022 imagi ng/di [...] Name and Address Organization Details Recorded Time [facility] hyperten dewayne 00916024 Active 2006 [facility] 4 13:29:59 Nephroti c syndrome 04740721 Completed 200603/03/2007 Not Available [facility] 3 04:42:43 Chronic kidney disease stage 3 789399714 Active 2010 Alie indrajose m dorsey [facility] 4 13:29:40 Obstruct kong sleep apnea syndrome 61258609 Active 2013 Alie indrajose m dorsey [facility] 4 13:30:42 Anxiety 03819656 Active 2014 Alie indrajose m dorsey [facility] 4 13:29:15 Type 2 diabetes mellitus without complica tion 229668432 Active 2015 Alie yasmeen willian [facility] 4 13:30:59 Obesity 106239635 [facility] 4 13:30:35 Edema 755425481 Active 2015 [facility] 4 13:29:50 Allergy to food 625292837 Active 2016 [facility] 4 13:29:10 Adult health examinat ion Active 2018 Alie [facility] 4 13:29:06 Erectile dysfunct ion 610778090 Active 2018 [facility] 4 13:29:54 Neuropat hy due to type 2 diabetes mellitus 36848409013 9106 Active 2020 [facility] 4 13:30:25 Screenin g for malignan t neoplasm of colon Active 2020 [facility] 4 13:30:50 Digestiv e system finding 747064355 Active 2021 [facility] 4 13:29:44 Vitamin B deficien cy 31923063 Active 2021 [facility] 4 13:31:03 Pre-surg mirta evaluati on Completed 202106/01/2022 Problem Code: Z01.818; Problem Code Type: ICD-10; Not Available [facility] 3 04:42:45 Bilatera l hearing loss 47288339 Active 2021 Alie [facility] 4 13:29:19 Venereal disease screenin g Completed 202108/24/2022 Problem Code: Z11.3; Problem Code Type: ICD-10; Not Available [facility] 3 04:42:45 Hypomagn esemia 210206936 Active 2022 [facility] 4 13:30:11 Secondar y polycyth emia 42964644 Active 2022 [facility] 4 13:30:54 Kidney stone 43111055 Active 2022 [facility] 4 13:30:16 History of polyp of colon 735480424 Active 2022 [facility] 4 13:30:07 Disorder of nasal sinus 5543054 Active 2022 OLGA MARCUS, CONTROL TECHNICIAN [address], [place], [address] , [facility] 4 08:08:16 Nonalcoh olic steatohe patitis 707262405 Active 2022 [facility] 4 13:30:32 Body mass index 30+ - obesity 302352292 Active 2022 [facility] 4 13:29:23 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 mellitus 924280980 Active 2022 [facility] 4 13:30:46 Nephroti c syndrome , diffuse membrano us glomerul onephrit is 562211759 Active 2022 [facility] 4 13:30:20 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 53741268893 00 Active 2022 [facility] 4 13:30:03 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 67452865462 00 Completed 202004/10/2021 Problem Code: E11.621; Problem Code Type: ICD-10; Alie dorsey [facility] 4 13:30:03 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 83953027638 00 Completed 202007/25/2022 Problem Code: E11.621; Problem Code Type: ICD-10; Alie dorsey [facility] 4 13:30:03 Hypergly cemia due to type 2 diabetes mellitus 23333848411 9109 Completed 201608/15/2017 Problem Code: E11.65; Problem Code Type: ICD-10; Not Available [facility] 3 04:42:47 Phimosis 320407178 Completed 201704/29/2022 Problem Code: N47.1; Problem Code Type: ICD-10; Not Available [facility] 3 04:42:47 Snoring 24984899 Completed 201303/01/2016 Not Available [facility] 3 04:42:48 Imaging of abdomen abnormal 921816766 Completed 202212/20/2022 Problem Code: R93.5; Problem Code Type: ICD-10; Not Available [facility] 3 04:42:48 Adult health examinat ion Completed 201403/01/2016 Problem Code: Z00.00; Problem Code Type: ICD-10; Aile dorsey [facility]. 4 13:29:06 Obesity 849887094 Completed 200606/11/2023 Alie dorsey [facility] 4 13:30:35 Fatigue 43847136 Completed 201303/01/2016 Not Available [facility] 3 04:42:48 Acute upper respirat ory infectio n 82665050 Completed 202004/29/2022 Problem Code: J06.9; Problem Code Type: ICD-10; Not Available [facility] 3 04:42:49 Nausea 014562068 Completed 202212/20/2022 Problem Code: R11.0; Problem Code Type: ICD-10; Not Available [facility] 3 04:42:49 Type 2 diabetes mellitus without complica tion 636165611 Completed 202201/10/2023 Problem Code: E11.9; Problem Code Type: ICD-10; Alie dorsey [facility] 4 13:30:59 Dyssomni a 78247854 Completed 201303/01/2016 Problem Code: 780.59; Problem Code Type: ICD-9; Not Available [facility] 3 04:42:49 Acute bronchit is 67401965 Completed 201708/09/2019 Problem Code: J20.9; Problem Code Type: ICD-10; Not Available [facility] 3 04:42:49 Nausea and vomiting 18368983 Completed 202107/25/2022 Problem Code: R11.2; Problem Code Type: ICD-10; Not Available [facility] 3 04:42:50 Sleep apnea 06326329 Completed 201306/11/2023 Problem Code: 780.57; Problem Code Type: ICD-9; Not Available [facility] 3 04:42:50 Disturba nce of consciou sness 5240104 Completed 201303/01/2016 Problem Code: 780.09; Problem Code Type: ICD-9; Not Available [facility] 3 04:42:50 Acute sinusiti s 04061892 Completed 202004/10/2021 Problem Code: J01.90; Problem Code Type: ICD-10; Not Available [facility] 3 04:42:50 Balaniti s 92800085 Completed 201608/15/2017 Problem Code: N48.1; Problem Code Type: ICD-10; Not Available [facility] 3 04:42:51 Sleep disorder 67180229 Completed 201303/01/2016 Problem Code: 780.50; Problem Code Type: ICD-9; Not Available [facility] 3 04:42:51 Nodule of subcutan eous tissue of left foot 42888918263 909874 Active 2023 OLGA MARCUS APRN [address], [place], [address] , [facility] 4 08:13:06 Benign prostati c hyperpla mercy 882589686 Active 2023 Alie dorsey, [facility]. 4 13:31:06 Headache 16550840 Active 2023 OLGA MARCUS APRN [address], [place], [address] , [facility] 4 08:57:45 Gynecoma stia 8102266 Active 2023 Alie dorsey, [facility] 4 13:31:13 Ulcer of left foot 122830241 Active 2023 ARNALDO GOMEZ CMA null, [facility]. 4 09:47:50 Fibromat osis of plantar fascia of left foot 39496043600 048776 Active 2023 Alie dorsey, [facility]. 4 13:31:10 Carcinom a of duodenum 191112299 Active 2023 EGD 01/06, biopsy at that time OLGA MARCUS APRN [address], [place], [address] , [facility]. 4 09:30:26 Pain of left shoulder joint 50969671659 206616 Active 2023 OLGA MARCUS APRN [address], [place], [address] , [facility]. 4 09:14:45 Cramp in lower limb 638511596 Active 2023 OLGA MARCUS APRN [address], [place], [address] , [facility] 4 09:15:29 Pain in right hip joint 59899060012 9102 Active 2023 OLGA MARCUS APRN [address], [facility] [address] , [facility] 4 09:19:09 Prolonge d QT interval 177625221 Active 2023 OLGA MARCUS APRN [address], [facility] [address] , [facility] 4 09:53:55 Hypergly cemia due to type 1 diabetes mellitus 56585390962 9101 Active 2023 OLGA MARCUS APRN [address], [facility] [address] , [facility] 4 14:16:49 Notes:*Problem Name: Duodena l polyp *Problem Status: active *Comments: *Problem Code: K31.7 *Problem Code Type: ICD-10 *Note Date: 2022 Problem Notes None recorded. Procedures Surgical History Date Name Laterality Status Provider Name and Address Organization Details Recorded Time 4 IV insert completed Kinsey Oliveira RN [facility], [facility] 03/24/2024 15:58:08 4 endoscopy completed ARNALDO GOMEZ CMA null, [facility] 01/02/2024 15:34:11 Imaging Results None recorded. Procedure Notes None recorded. Medical Equipment None Reported. Allergies Allergen ID Allergen Name Allergen Category Reaction Reaction Severity Criticality Documentation Date Start Date Code Code System Note Provider Name and Address Organization Details Recorded Time 33893 Medicinal product containin g penicilli n and acting as antibacte rial agent (product) medicatio n other mild Not available 11/29/20232006 96995 05 SNOMED Swell ing of throa t Loren Carina [facility], [facility] 13:58:03 Medications Name Sig Start Date Stop [...] 2023 active Per [facility] d/c summary [...] completed Stopped per [facility] d/c summary [...] completed Stopped per [facility] d/c summary [...] route. active Per [facility] d/c summary [...] E11.9 Not Available Not Available Not Renea LyonHodavid (honey) 80 % topical gel Apply a [...] completed Stopped per [facility] d/c summary [...] Pen Needle 32 gauge x /32 USE 1 PEN NEEDLE TO INJECT SUBCUTAN [...] Available No t Available FreeStyle Lina 3 Ocate USE DIRECTED active Not Available Not Available No t Available Vitals Date Recorded Body height Body mass index (BMI) Body weight Oxygen saturation Oxygen saturation in Arterial blood by Pulse oximetry Heart rate Body temperature Systolic blood pressure Diastolic blood pressure Provider Name and Address Organization Details Last Updated DateTime 186.69 cm 34.2 kg/m2 592309. 79 g 97 % 97 % 81 /min 97.89 [degF] 128 mm[Hg] 94 mm[Hg] ARNALDO GOMEZ CMA [facility] 11:42:08 Date Recorded Systolic blood pressure Diastolic blood pressure Provider Name and Address Organization Details Last Updated DateTime 04/23/2024 122 mm[Hg] 90 mm[Hg] OLGA MARCUS APRN [address], [place], [address], [facility] 04/23/2024 12:17:35 Social History Question Answer Notes LastModified by Organizat ion Details LastModified Time Tobacco Smoking Status Never Smoker ARNALDO GOMEZ CMA null, [facility] 12/05/2023 08:46:50 What Was The [...] virus, trivalent, PF 05/27/2024 completed OLGA MARCUS, CONTROL TECHNICIAN [address], [place], [address], [facility] 05/27/2024 14:49:23 Td (adult), 2 Lf tetanus toxoid, preservative free, adsorbed 04/22/2017 completed Not Available [facility] 07/25/2023 06:32:54 Tdap 02/27/2007 completed Not Available [facility] 06:32:54 Influenza, split virus, quadrivalent, PF 09/21/2020 completed Not Available [facility] 07/25/2023 06:32:54 Influenza, split virus, quadrivalent, PF 06/19/2021 completed Not Available [facility] 07/25/2023 06:32:54 Influenza, split virus, quadrivalent, PF 08/02/2019 completed Not Available [facility] 07/25/2023 06:32:54 COVID-19 vaccine, vector-nr, rS-Ad26, PF, 0.5 mL 01/19/2021 completed Not Available [facility] 07/25/2023 06:32:54 pneumococcal polysaccharide PPV23 09/21/2020 completed Not Available [facility] 2022 06:32:54 influenza, unspecified formulation 07/05/2016 completed Not Available [facility] 07/25/2023 06:32:54 influenza, unspecified formulation 07/16/2017 completed Not Available [facility] 07/25/2023 06:32:54 Influenza, split virus, quadrivalent, PF 06/17/2023 completed Not Available [facility] 09/26/2023 05:33:26 Past Encounters Encounter ID Performer Location Encounter Start Date Encounter Closed Date Diagnosis/Indication Diagnosis SNOMED-CT Code Diagnosis ICD10 Code [id number] ADA HAMM MD [address] [address] 03/24/2024 13:12:40 03/24/2024 14:17:10 Tachycardia 9872677 R00.0 Lethargy 517094783 R53.8 3 Low blood pressure 76214 003 I95.9 [id number] OLGA MARCUS APRN [address] [address] 04/23/2024 11:09:47 04/23/2024 12:19:30 Type 2 diabetes mellitus without complication 671120232 E11.9 E11.40 Essential hypertension 58707349 I10 N18.9 R60.9 Anxiety 54106878 F41.9 F32.A Z73.3 Obstructiv e sleep apnea syndrome 22078920 G47.33 Body mass index 30+ - obesity 387828262 Z68.36 Digestive system finding 137661549 R19.8 Nonalcohol ic steatohepatitis 839091824 K75.81 Secondary polycythemia 47570445 D75.1 Disorder o f nasal sinus 8250780 J34.9 Nephrotic syndrome, diffuse membranous glomerulonephritis 261961991 N04.20 Nodule of subcutaneous tissue of left foot 2309081317 2682897 R22.42 Benign pro static hyperplasia 830865152 N40.0 Carcinoma of duodenum 25 7058375 C17.0 Pain of le ft shoulder joint 0171296291 0018653 M25.512 Cramp in lower limb 4499 37064 R25.2 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 6576210111 100 E11.621 Pain in ri ght hip joint 3231640304 77659 M25.551 Prolonged QT interval 11 I45.81 Health Concerns Section Related Observation LastModified by Organization Shreyas ls LastModified Time None Recorded Concern Status LastModified by Organization Details LastModified Time None Recorded Payers Encounter Date Sequence Insurance Name Policy Number Policy Loo Covered Member ID Loo Member ID Guarantor Name 04/23/2024 1 [facility] [id number] Charles Franks [place] [id number] Charles Nick Notes Date Note Type Note [...] hour days. Will gladly update and edit [facility] paperwork according to how he feels. Mediport next week, then chemo late next week. Nervous/ anxious about starting chemo. OLGA MARCUS, CONTROL TECHNICIAN [address], [place], [address], [place] [facility]. 04/23/2024 15:51:08
--- OUTSIDE RECORDS SUMMARY | 2024-05-31 21:18 | XMS_ITS | Encounter Summary ---
Author Organization [facility] Address [address] [place] [address] Care Team Providers Care Machine Preservative Filler Name Role Phone Ramiro Cardenas MD Primary Care Provider [phone] Encounter Details Date Type Department Care Team (Late st Contact Info) Description 07/25/[address] [facility] Pathology & Laboratory Medicine - [facility] [address] [place] [address] Outr Resulting Lab, Provider Social History Tobacco [...] Syphilis Serology Negative Negative 07/26/2022 11:38 EST [facility] Blood VENOUS BLOOD / Unknown 07/25/2022 10:14 EST 07/25/2022 21:28 EST Provider Outr Resulting Lab IMMUNOLOGY A ND SEROLOGY ORDERABLES [facility] [address] [place] [address] documented in this encounter Visit Diagnoses Not on filedocumented in this encounter Care Teams Machine Preservative Filler Relationship Specialty Start Date End Date Ramiro Cardenas MD [address] [place], [place] [id number] PCP - General 04/24/09 documented as of this encounter
--- OUTSIDE RECORDS SUMMARY | 2024-05-31 21:19 | XMS_ITS | Encounter Summary ---
Author Organization [facility] Address [address] [place] [address] Care Team Providers Care Merchandise Worker Name Role Phone Ramiro Cardenas MD Primary Care Provider [phone] Encounter Details Date Type Department Care Team (Latest Contact Info) Description 02/26/2022 Prep for Procedure [facility] Ophthalmology [facility] [address] [place], [place] [id number] Ezequiel Andrea MD [address] [place] [phone] Combined forms of age-related cataract of right [...] 02/27/2022 documented in this encounter Care Teams Merchandise Worker Relationship Specialty Start Date End Date Ramiro Cardenas MD [address] [place], [place] [address] PCP - General 04/24/09 documented as of this encounter
--- OUTSIDE RECORDS SUMMARY | 2024-05-31 21:19 | XMS_ITS | Encounter Summary ---
Author Organization [facility] Address [address] [place] [address] Care Team Providers Care Sand Caster Apprentice Name Role Phone Ramiro Cardenas MD Primary Care Provider [phone] Reason for Visit * Reason Onset Date Comments Pre-op Exam 02/27/2022 Encounter Details Date Type Department Care Team (Late st Contact Info) Description 02/27/2022 11:00 EDT Office Visit [facility] Ophthalmology [facility] [address] [place] [address] Ezequiel Andrea MD [address] [place] [phone] Social History Tobacco Use Types Packs/Day Years [...] MASTER/LENS STAR ONLY (02/27/2022 16:24 EDT) Narrative [facility] POINT OF CARE - 02/27/2022 16:24 [...] was provided. Ezequiel Andrea MD OPHTH ULTRASOUND [facility] POINT OF CARE documented in this encounter Visit Diagnoses Diagnosis Combined forms of age-related cataract of left eye- Primary Other and combined forms of senile cataract Combined forms of age-related cataract of right eye Other and combined forms of senile cataract documented in this encounter Care Teams Sand Caster Apprentice Relationship Specialty Start Date End Date Ramiro Cardenas MD [address] [place] [address] PCP - General 04/24/09 documented as of this encounter
--- OUTSIDE RECORDS SUMMARY | 2024-05-31 21:19 | XMS_ITS | Encounter Summary ---
Author Organization [facility] Address [address] [place] [address] Care Team Providers Care Appraiser Auditor Name Role Phone Ramiro Cardenas MD Primary Care Provider [phone] Encounter Details Date Type Department Care Team (Latest Contact Info) Description 04/03/2022 Documentation Visit [facility] Ophthalmology [facility] [address] [place], [place] [id number] Ezequiel Andrea MD [address] [place] [phone] Combined forms of age-related cataract of left [...] left eye Procedure date: 05/10/22 Procedure location: [facility] Lens type: SN6AT5 Lens power: 18.5 [...] W/O IOL BIOMETRY (04/09/2022 17:02 EDT) Narrative [facility] POINT OF CARE - 04/09/2022 17:02 EDT Optical Coherence Biometry Calculations Date of original biometry: 02/27/22 Read date: 04/09/22 Indicated eye: the left eye Procedure date: 05/10/22 Procedure location: [facility] Lens type: SN6AT5 ?? Lens power: 18.5 Electronically Signed: Ezequiel Andrea MD 04/09/22 Ezequiel Andrea MD OPHTH ULTRASOUND [facility] POINT OF CARE documented in this encounter Visit Diagnoses Diagnosis Combined forms of age-related cataract of left eye- Primary Other and combined forms of senile cataract documented in this encounter Care Teams Appraiser Auditor Relationship Specialty Start Date End Date Ramiro Cardenas MD [address] [place] [address] PCP - General 04/24/09 documented as of this encounter
--- OUTSIDE RECORDS SUMMARY | 2024-05-31 21:19 | XMS_ITS | Encounter Summary ---
Author Organization 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 [H25.811] Procedures AL XCAPSL CTRC RMVL INSJ IO LENS PROSTH W/O ECP EXTRACTION, CATARACT, EXTRACAPSULAR, WITH IOL INSERTION ORA - Toric Referral ID Status Reason Start Date Expiration Date Visits Re quested Visits Authorized [id number] 1 1 Encounter Details Date Type Department Care Team (Late st Contact Info) Description 05/03/2022 11:15 EDT - 05/03/2022 12:00 EDT Surgery [facility] Operating Room [address] [place] [address] Ezequiel Andrea MD [address] [place] [phone] EXTRACTION, CATARACT, EXTRACAPSULAR, WITH IOL INSERTION ORA - Toric [[id number] (CPT??)] Surgery Details Date/Time Status Location OR Service Patient Class Case Cl ass Case Type Trauma Case? 05/03/22 1115 Posted [facility] [place] 04 Ophthalmology Hos pital Outpatient [...] not hesitate to call the office at [phone]. documented in this encounter Medications at Time [...] Notes * Ezequiel Andrea MD - 05/03/2022 8121 EDT The preoperative history and physical which was performed within 30 days of this procedure has been reviewed and the clinically appropriate elements of the physical examination have been repeated. There are no changes to the documented history and physical or if so such changes are documented below Ezequiel Andrae MD 05/03/2022 11:08 Source Note - Heron, Scan Admin Background - 05/02/2022 0:00 EDT documented in this encounter OR Notes * OR Surgeon - Ezequiel Andrea MD - 05/03/2022 1211 EDT EXTRACTION, CATARACT, EXTRACAPSULAR, WITH IOL INSERTION ORA - Toric (R) Operative Note Date: 05/03/2022 Location: [facility] [place] Name: Charles Nick, : 1975, PREOPERATIVE [...] D, right eye. SURGEON: Ezequiel Andrea MD SALES AND MARKETING ADMINISTRATOR: DANIELA Lyn ANESTHESIA: Topical and MAC ESTIMATED [...] operative eye in the pre-operative area. A [place] Iron Oxides (PIROX) marker was used to identify the 0, [...] no complications. The patient returned to the cna caregiver area alert and ingood condition. * Preprocedure Instructions - Lisa Kemp RN - 05/02/2022 0932 EDT Charles Nick has been instructed as [...] EDT) 05/16/2022 10:4 4 EDT Scan 2 Pharmacy Order Entry Technician PROCEDURE/[place] GICAL ORDERABLES * ECG REPORT - SCANNED (05/07/2022 9:47 EDT) 05/07/2022 9:47 EDT Scan 2 Pharmacy Order Entry Technician PROCEDURE/[place] GICAL ORDERABLES * (ABNORMAL) POCT GLUCOSE, INTERFACED (05/03/2022 12:36 EDT) Glucose, POC 145(H) 70 - 100 mg/dL 05/03/2022 13:46 EDT [facility] HN LAB POC COMMENT (GLUCOSE) Test Performed in DSCU 05/03/2022 13:46 EDT [facility] Blood CAPILLARY BLOOD / Unknown 05/03/2022 12:36 EDT 05/03/2022 13:45 EDT Ezequiel Andrea MD POINT OF CARE TEST O ELKIN Performing Organization Address City/[facility] Co de Phone Number [facility] [address] [place], [place] [phone] * (ABNORMAL) POCT GLUCOSE, INTERFACED (05/03/2022 11:05 EDT) Glucose, POC 169(H) 70 - 100 mg/dL 05/03/2022 11:07 EDT [facility] HN LAB POC COMMENT (GLUCOSE) Test Performed in [facility] 05/03/2022 11:07 EDT [facility] Blood CAPILLARY BLOOD / Unknown 05/03/2022 11:05 EDT 05/03/2022 11:07 EDT Ezequiel Andrea MD POINT OF CARE TEST O ELKIN [facility] [address] [place] [id number] documented in this encounter Visit Diagnoses Diagnosis [...] 05/03/2022 documented in this encounter Care Teams Edge Gluer Relationship Specialty Start Date End Date Ramiro Cardenas MD [address] [place] [address] PCP - General 04/24/09 documented as of this encounter
--- OUTSIDE RECORDS SUMMARY | 2024-05-31 21:19 | XMS_ITS | Encounter Summary ---
Author Organization [facility] Address [address] [place] [address] Care Team Providers Care Opera Singer Name Role Phone Ramiro Cardenas MD Primary Care Provider [phone] Encounter Details Date Type Department Care Team (Latest Contact Info) Description 04/03/2022 Documentation Visit [facility] Ophthalmology [facility] [address] [place], [place] [phone] Ezequiel Andrea MD [address] [place] [phone] Combined forms of age-related cataract of right [...] right eye Procedure date: 05/03/22 Procedure location: [facility] Lens type: SN6AT4 Lens power: 20.0 [...] BIOMETRY (04/09/2022 17:00 EDT) Narrative [facility] POINT OF CARE - 04/09/2022 17:00 EDT Optical Coherence Biometry Calculations Date of original biometry: 02/27/22 Read date: 04/09/22 Indicated eye: the right eye Procedure date: 05/03/22 Procedure location: [facility] Lens type: SN6AT4 ?? Lens power: 20.0 Electronically Signed: Ezequiel Andrea MD 04/09/22 Ezequiel Andrea MD OPHTH ULTRASOUND [facility] POINT OF CARE documented in this encounter Visit Diagnoses Diagnosis Combined forms of age-related cataract of right eye- Primary Other and combined forms of senile cataract documented in this encounter Care Teams Opera Singer Relationship Specialty Start Date End Date Ramiro Cardenas MD [address] [place] [address] PCP - General 04/24/09 documented as of this encounter
--- OUTSIDE RECORDS SUMMARY | 2024-05-31 21:19 | XMS_ITS | Encounter Summary ---
Author Organization [facility] Address [address] [place] [address] Care Team Providers Care Bicycle Fitter Name Role Phone Ramiro Cardenas MD Primary Care Provider [phone] Reason for Referral * Specialty Diagnoses / Procedures Referred By Janak holland Referred To Contact Ezequiel Andrea MD [address] [place] [address] Referral ID Status Reason Start Date Expiration [...] age-related cataract of right eye [H25.811] Procedures [place] XCAPSL CTRC RMVL INSJ IO LENS PROSTH W/O ECP EXTRACTION, CATARACT, EXTRACAPSULAR, WITH IOL INSERTION ORA - Toric Referral ID Status Reason Start Date Expiration Date Visits Re quested Visits Authorized [id number] 1 1 Encounter Details Date Type Department Care Team (Latest Contact Info) Description 05/03/2022 9:54 EDT - 05/03/2022 12:57 EDT Hospital Encounter [facility] Operating Room [address] [place] [address] Ezequiel Andrea MD [address] [place] [phone] Discharge Disposition: Home or Self [...] not hesitate to call the office at [phone]. documented in this encounter Medications at Time [...] Code Departure Means Destination Home or Self Alf documented in this encounter H&P Notes * Ezequiel Andrea MD - 05/03/2022 6954 EDT The preoperative history and physical which [...] Toric (R) Operative Note Date: 05/03/2022 Location: [facility] [place] Name: Charles Nick, : 1975, [...] D, right eye. SURGEON: Ezequiel Andrea MD SUPERCHARGER MECHANIC: DANIELA Lyn ANESTHESIA: Topical and MAC ESTIMATED [...] no complications. The patient returned to the hospice care sales consultant area alert and ingood condition. * Preprocedure Instructions - Lisa Kemp RN - 05/02/2022 0933 EDT Charles Nick has been instructed as [...] EDT) 05/16/2022 10:4 4 EDT Scan 2 Pan Shover PROCEDURE/MINOR [place] GICAL ORDERABLES * ECG REPORT - SCANNED (05/07/2022 9:47 EDT) 05/07/2022 9:47 EDT Scan 2 Pan Shover PROCEDURE/MIN[place] GICAL ORDERABLES * (ABNORMAL) POCT GLUCOSE, INTERFACED (05/03/2022 12:36 EDT) Glucose, POC 145(H) 70 - 100 mg/dL 05/03/2022 13:46 EDT [facility] HN LAB POC COMMENT (GLUCOSE) Test Performed in DSCU 05/03/2022 13:46 EDT [facility] Blood CAPILLARY BLOOD / Unknown 05/03/2022 12:36 EDT 05/03/2022 13:45 EDT Ezequiel Andrea MD POINT OF CARE TEST Yoel GRANGER Performing Organization Address [facility] Co de Phone Number [facility] [address] [place] [address] * (ABNORMAL) POCT GLUCOSE, INTERFACED (05/03/2022 11:05 EDT) Glucose, POC 169(H) 70 - 100 mg/dL 05/03/2022 11:07 EDT [facility] HN LAB POC COMMENT (GLUCOSE) Test Performed in SDS 05/03/2022 11:07 EDT [facility] Blood CAPILLARY BLOOD / Unknown 05/03/2022 11:05 EDT 05/03/2022 11:07 EDT Ezequiel Andrea MD POINT OF CARE TEST O ELKIN Performing Organization Address City/[facility]/ZIP Co de Phone Number [facility] [address] [place] [address] documented in this encounter Visit Diagnoses Diagnosis [...] 05/03/2022 documented in this encounter Care Teams Bicycle Fitter Relationship Specialty Start Date End Date Ramiro Cardenas MD [address] [place] [address] PCP - General 04/24/09 documented as of this encounter
--- OUTSIDE RECORDS SUMMARY | 2024-05-31 21:19 | XMS_ITS | Encounter Summary ---
Author Organization [facility] Address [facility] [place] [address] Care Team Providers Care Railroad Crane Operator Name Role Phone Olga Hoffman APRN Primary Care Provider [phone] Reason for Visit * Reason Onset Date Comments Fever 05/31/2024 Encounter Details Date Type Department Care Team (Late st Contact Info) Description 05/31/2024 Telephone Hematology [place] [phone] Deondre Posadas MD [facility] HEMATOLOGY/[place] [address] Fever Social History Tobacco Use Types Packs/Day Years Used Date Smoking Tobacco: Never Smokeless Tobacco: Never Alcohol Use Standard Drinks/Week Comments Not Currently 0 (1 standard drink = 0.6 oz pur e alcohol) [facility] Utilities Answer Date Recorded In the past 12 months has [employer], gas, oil, or water [employer] threatened to shut off services in [...] in a fpc (including now)? No 03/25/2024 DH IPV Inpatient [...] encounter Miscellaneous Notes * Telephone Encounter - Deondre Posadas MD - 05/31/2024 8:00 PM EDT Reason for call: fever 101.3 Caller: partner Jenelle Nick is a 48 y.o. 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 This was subsequently removed by . Patient was started adjuvant FOLFOX, C1. 5FU pump was just disconnected Friday. Patient started to feel cold, and temp measured showed fever 101.3. He has been experiencing sig nausea and vomiting and diarrhea though they felt this was not new. No breathing difficulty. No new onset of pain. Assessment/Recommendations: I discussed with the patient's partner, that likely this is new onset of infection, ansley concerning is recent removal of drain & now the chemotherapy I asked them to go to the ED, they will go to [facility] I called [facility] ER and provided verbal handover I spoke to Marie KIM and provided history I suspect likely pt will need further imaging to r/o abscess or collection as well as hydration, + empiric abx All questions/concerns were addressed. Caller verbalized understanding and will call for any more questions. This note will be routed to primary oncology/hematology team. Emre Posadas MD, CM, FACP Hematology/Oncology Fellow PGY4 Pager # [phone] 05/31/24, 8:06 PM Hematology/[place] [address] documented in this encounter Plan of Treatment Upcoming Encounters Date Type Department Care Team (Late st Contact Info) Description 06/11/2024 9:30 AM EDT Office Visit Hematology/Oncology at [address] [phone] Rodriguez Fowler MD [facility] [place] [address] Sherry Cedillo APRN [address] [place] [address] DR HEMATOLOGY AND ONCOLOGY [employer] [place] [address], [place] [address] 06/11/2024 10:00 AM EDT Infusion Hematology Oncology at [address] [phone] 06/25/2024 9:30 AM EDT Office Visit Hematology/Oncology at [address] [phone] Rodriguez Fowler MD [facility] [place] [address] Sherry Cedillo APRN [address] [place] [address] DR HEMATOLOGY AND ONCOLOGY [address], [place] [phone] 06/25/2024 10:00 AM EDT Infusion Hematology Oncology at [address] [phone] documented as of this encounter Visit Diagnoses Not on filedocumented in this encounter Care Teams Railroad Crane Operator Relationship Specialty Start Date End Date Olga Hoffman APRN [address] [place] [address] PCP - General Family Medicine 10/30/22 documented as of this encounter
--- OUTSIDE RECORDS SUMMARY | 2024-05-31 21:19 | XMS_ITS | Clinical Summary ---
Author Organization Formerly [facility], Later [facility] Address [facility] [place] [address] Care Team Providers Care Chin Strap Cutter Name Role Phone Olga Hoffman APRN Primary Care Provider [phone] Allergies Active Allergy Reactions Criticality Noted Date [...] times daily. 180 tablet 3 1 Active Additional Information Patient taking differently: 40 mgOral 2 TIMES DAILY, Reported on 05/28/2024 tadalafiL (CIALIS) 10 mg Tablet TAKE 1 TABLET BY MOUTH ONCE A DAY NEEDED. TAKE 1 HOUR PRIOR TO SEXUAL INTERCOURSE 2 Active gabapentin (NEURONTIN) 600 mg Tablet Take 600 mg by mouth 3 times daily. 1 Active citalopram (CeleXA) 10 mg tablet Take 40 mg by mouth daily. Active montelukast (Singulair) 10 mg tablet Take 10 mg by mouth daily. Active magnesium oxide (Mag-Ox) 400 mg (241.3 mg magnesium) Tablet Take 1 tablet by mouth nightly. 4 Active amLODIPine (Norvasc) 10 mg tablet Take 1 tablet by mouth daily. Active naltrexone (Depade) 50 mg tablet Take 50 mg by mouth daily. Active Insulin Dan[place], Disposable, (BD Ultra-Fine Micro Pen Needle) 32 gauge x 09/18 Needle 1 each by Misc.(Non-Drug; Combo Route) [...] 4 Active Additional Information Patient taking differently: 30 UnitsSubcutaneous DAILY, Reported on 05/28/2024 acetaminophen (Tylenol) 325 mg tablet Take 2 tablets by mouth every 8 hours as needed for Pain. 30 tablet 1 4 Active pytoiw-ezvduydl-dxu lase (Zenpep) 40,000-126,000- 168,[address] capsule [...] 5 4 Active glucagon (Baqsimi) 3 mg/actuation [place], Non-AerosolIndicati ons:hypoglycemic disorder 1 each by Nasal route as needed (Severe hypoglycemia not responding to oral treatment). Indications: low blood sugar 1 each 3 4 Active Additional Information Patient not taking.Reported on 05/28/2024 ergocalciferoL, vitamin D2, (vitamin D2) 50,000 unit capsule Take 1 capsule by mouth once a week. 12 capsule 3 4 Active prochlorperazine (Compazine) 10 mg tabletIndications:D uodenal adenocarcinoma,Drug -induced nausea and vomiting Take 1 tablet by mouth every 6 hours as needed for Nausea. 30 tablet 5 4 Active Active Problems Problem Noted Date [...] 11/19/2022 - Comments only - Olga Hoffman MARKET ANALYSIS DIRECTOR - Elevated today. 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/2024 8:00 AM EDT Office Visit Hematology/Oncolog y at [address] [address] Rodriguez Fowler MD LaRoza, Stephanie A, APRN Duodenal adenocarcinoma; Drug-induced nausea and vomiting 05/28/2024 Travel 05/25/2024 Orders Only Hematology [place] [address] Rodriguez Fowler MD 05/21/2024 10:25 AM EDT Laboratory Appointment Lab [address] [phone] Type 2 diabetes mellitus with diabetic polyneuropathy, with long-term current use of insulin 05/21/2024 9:00 AM EDT Office Visit Endocrinology at [place] [phone] Nighat López MD Type 2 diabetes mellitus with diabetic polyneuropathy, with long-term current use of insulin; Vitamin D deficiency 05/21/2024 Travel 05/20/2024 9:00 AM EDT Office [place] [address] Rudi Hernandez MD H/O Whipple procedure 05/20/2024 Travel 05/12/2024 3:30 PM EDT Office [place] [address] Rudi Hernandez MD H/O Whipple procedure 05/12/2024 Travel 05/07/2024 1:00 PM EDT Clinical Support Hematology/Oncolog y at [address] [address] Leah Rose, ARASH 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 11:00 AM EDT Infusion Hematology Oncology at [address] [address] 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 10:30 AM EDT Office Visit Hematology/Oncolog y at [address] [address] Rodriguez Fowler MD LaRoza, Stephanie A, APRN Duodenal adenocarcinoma; H/O Whipple procedure 05/07/2024 Travel 05/06/2024 Orders Only Hematology [place] [address] Rodriguez Fowler MD 05/06/2024 Orders Only Hematology [place] [address] Rodriguez Fowler MD 05/05/2024 8:41 AM EDT - 05/05/2024 11:59 PM EDT Hospital [place] [address] Silvio Wheeler MD Perihepatic abscess Discharge Disposition: Home 05/05/2024 8:00 AM EDT Office Visit Nephrology Hypertension at [place] [phone] Shahida Zamudio APRN Vitamin D deficiency; Essential hypertension; 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 05/05/2024 7:00 AM EDT Laboratory Appointment Lab [address] [place] [address] 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; Obesity due to excess calories with serious comorbidity, unspecified classification 05/05/2024 Travel 05/04/2024 Orders Only Nephrology Hypertension at [place] [phone] Shahida Zamudio, MARKET ANALYSIS DIRECTOR 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; Obesity due to excess calories with serious comorbidity, unspecified classification 04/28/2024 Orders [place] [address] Silvio Wheeler MD 04/28/2024 Notes Only Hematology [place] [address] Alo Calhoun, [facility] 04/27/2024 Orders Only General Surgery at [place] [phone] Rudi Hernandez MD 04/26/2024 9:17 AM EDT - 04/26/2024 11:59 PM EDT Hospital Encounter Radiology at [place] [phone] Rodriguez Fowler MD Duodenal adenocarcinoma Discharge Disposition: Home 04/26/2024 Travel 04/21/2024 10:13 AM EDT - 04/21/2024 11:59 PM EDT Hospital [place] [address] Juan Wright MD Perihepatic abscess; Duodenal adenocarcinoma Discharge Disposition: Home 04/21/2024 9:00 AM EDT Office [place] [address] Rudi Hernandez MD H/O Whipple procedure 04/20/2024 12:29 PM EDT - 04/20/2024 11:59 PM EDT Hospital Encounter Hematology [place] [address] Duodenal adenocarcinoma; H/O Whipple procedure Discharge Disposition: Home 04/20/2024 11:00 AM EDT Office Visit Hematology [place] [address] Rodriguez Fowler MD Duodenal adenocarcinoma 04/20/2024 Notes Only Radiology at [place] [phone] Latonia Oscar PA 04/20/2024 Travel 04/15/2024 9:00 AM EDT Telephone Hematology [place] [address] Donna Dewey, ARASH 04/14/2024 Telephone Nephrology Hypertension at [place] [phone] Shahida Joshi 04/09/2024 Orders Only General Surgery at [place] [phone] Rudi Hernandez MD 04/08/2024 11:06 AM EDT - 04/08/2024 11:59 PM EDT Hospital [place] [address] Rudi Hernandez MD H/O Whipple procedure Discharge Disposition: Home 04/08/2024 10:50 AM EDT - 04/08/2024 11:05 AM EDT Hospital Encounter Radiology at [place] [phone] Perihepatic abscess; Duodenal adenocarcinoma; Obesity due to excess calories with serious comorbidity, unspecified classification Discharge Disposition: Home 04/08/2024 10:00 AM EDT Clinical Support [place] [address] Donna Dewey, ARASH H/O Whipple procedure 04/08/2024 9:30 AM EDT Office [place] [address] Rudi Hernandez MD H/O Whipple procedure 04/08/2024 8:45 AM EDT Laboratory Appointment Lab [address] [place] [address] Duodenal adenocarcinoma 04/07/2024 Travel 04/01/2024 Travel 03/26/2024 Telephone General Surgery at [place] [phone] Gina Marie RN 03/24/2024 9:11 PM EDT - 04/01/2024 3:24 PM EDT Hospital Encounter Surgical Unit Level 4 [place] [address] Rudi Hernandez MD Perihepatic abscess; Duodenal adenocarcinoma; Obesity due to excess calories with serious comorbidity, unspecified classification; Severe protein-calorie malnutrition Discharge Disposition: Home with VNA 03/24/2024 7:50 PM EDT Ancillary Procedure Radiology Library at [facility] [place] [address] Rudi Hernandez MD 03/24/2024 5:30 PM EDT Ancillary Procedure Radiology Library at [facility] [place] [address] Rudi Hernandez MD 03/24/2024 10:30 AM EDT Telephone Hematology and Oncology at [place] [phone] Donna Dewey, ARASH 03/24/2024 Orders [place] [address] Tylor Don DO 03/24/2024 Telephone [place] [address] Gina Marie, RN 03/22/2024 Orders [place] [address] Rudi Hernandez MD Duodenal adenocarcinoma; H/O Whipple procedure 03/20/2024 Multidisciplinary Ca re Committee [place] [address] Rdui Hernandez MD 03/19/2024 Telephone [place] Surgery [place] [phone] Jaki Pantoja, GRETCHEN 03/17/2024 10:30 AM EDT Clinical Support General Surgery at [place] [phone] Donna Dewey, ARASH Duodenal cancer 03/17/2024 10:00 AM EDT Office Visit General Surgery at [place] [phone] Rudi Hernandez MD Duodenal adenocarcinoma 03/17/2024 Travel 03/16/2024 Multidisciplinary Ca re Committee General Surgery at [place] [phone] Rudi Hernandez MD 03/10/2024 Telephone General Surgery at [place] [phone] Rudi Hernandez MD 03/10/2024 Orders Only General Surgery at [place] [phone] Rudi Hernandez MD Duodenal cancer 03/05/2024 Telephone General Surgery at [place] [phone] Gary Mtz PA 03/05/2024 Telephone Nephrology Hypertension at [place] [phone] Deena Wells 03/05/2024 Transcribe Orders eDH Incoming Referrals [phone] Olga Hoffman, MARKET ANALYSIS DIRECTOR Other specified diabetes mellitus with other specified complication, unspecified whether skilled nursing insulin use 03/02/2024 11:59 PM EDT Anesthesia [place] [address] Rafi Pena RN 03/01/2024 7:43 AM EDT Anesthesia Event Main Operating Room [place] [phone] Gary Scott MD Treide, Alexander P, CRNA 03/01/2024 7:30 AM EDT - 03/01/2024 4:58 PM EDT Surgery [place] [address] Rudi Hernandez MD @[place] PROCEDURE (WRVU 52.84) 03/01/2024 6:11 AM EDT - 03/08/2024 3:01 PM EDT Hospital Encounter Surgical Unit Level 4 [place] [address] Rudi Hernandez MD Duodenal cancer; Duodenal adenocarcinoma Discharge Disposition: Home from Last 3 Months Social History Tobacco Use Types Packs/Day Years Used Date Smoking Tobacco: Never Smokeless Tobacco: Never Tobacco Cessation:Counseling Given: Not Answered Alcohol Use Standard Drinks/Week Comments Not Currently 0 (1 standard drink = 0.6 oz pur e alcohol) [facility] Utilities Answer Date Recorded In [...] any time in the past 12 m [facility], were you homeless or living in a usp (including now)? No 03/25/2024 DH IPV Inpatient [...] Sign Reading Time Taken Comments Blood Pressure 136/108 05/28/2024 7:59 AM EDT Pulse 94 05/28/2024 7:59 AM EDT Temperature 36.1 ??C (96.9 ??F) 05/28/2024 7:59 AM ED T Respiratory Rate 18 05/28/2024 7:59 AM EDT Oxygen Saturation 99% 05/28/2024 7:59 AM EDT Inhaled Oxygen Concentration - - Weight 120.6 kg (265 lb 12.8 oz) 05/28/2024 7:59 AM EDT Height 188 cm (6' 2.02) 05/28/2024 7:59 AM EDT Body Mass Index 34.11 05/28/2024 7:59 AM EDT Plan of Treatment Upcoming Encounters Date Type Department Care Team (Late st Contact Info) Description 06/11/2024 9:30 AM EDT Office Visit Hematology/Oncology at [address] [phone] Rodriguez Fowler MD [facility] [place] [address] Sherry Cedillo APRN [address] HEMATOLOGY AND ONCOLOGY [place], [place] [id number] 06/11/2024 10:00 AM EDT Infusion Hematology Oncology at [address] [phone] 06/25/2024 9:30 AM EDT Office Visit Hematology/Oncology at [address] [phone] Rodriguez Fowler MD [facility] [place] [address] [address] HEMATOLOGY AND ONCOLOGY [place], [place] [phone] 06/25/2024 10:00 AM EDT Infusion Hematology Oncology at [address] [phone] Health Maintenance Due Date Last Done Comments [...] adult 1993 Tetanus vaccine 1993 Covid-19 Vaccine ( - 2022-2 4 season) 2024 Influenza (Flu) [...] history exists Medical Devices Implanted Type Area Electromechanisms Design Drafter Device Identifier Shelf Expiration Date Model / Serial / Lot Port Infusion 8fr Cath Power Lp Ct Plastic Dignity [id number] Implanted:Qty : 1 on 04/26/2024 by Latonia Oscar PA IMPLANTS Right: Chest Wall [employer] - [employer] [place] 03/14/2028 [id number] / [id number] / [id number] Description:RIGHGT 8FR MINI PORT PLACEMENT Procedures Procedure Name Priority Date/Time Associated Diagnosis Comments LAB SCAN 05/28/2024 12:00 AM EDT GLUCOSE Routine 05/21/2024 10:13 AM EDT Type [...] EDT Duodenal adenocarcinoma DIFFERENTIAL, AUTOMATED Routine 04/08/20 24 8:17 AM EDT Duodenal adenocarcinoma HEMOGRAM Routine [...] DIFFERENTIAL, AUTOMATED Routine 03/25/20 4:35 AM EDT HEMOGRAM Routine 03/25/2024 4:35 AM EDT BASIC METABOLIC PANEL Routine 03/25/2024 4:35 AM EDT CBC (WITH DIFF) Routine 03/25/2024 4:35 AM EDT POCT GLUCOSE Routine 03/25/2024 4:31 AM EDT SCAN DOC: TELEMETRY STRIPS 03/25/2024 1:32 AM EDT POCT GLUCOSE Routine 03/24/2024 11:56 PM EDT DIFFERENTIAL, AUTOMATED Routine 03/24/20 10:21 PM EDT HEMOGRAM Routine 03/24/2024 10:21 [...] 03/05/2024 5:14 AM EDT DIFFERENTIAL, AUTOMATED Routine 06/21/20 24 4:21 AM EDT HEMOGRAM Routine 03/05/2024 4:21 [...] 4:30 AM EDT DIFFERENTIAL, AUTOMATED Routine 03/02/20 24 4:30 AM EDT HEMOGRAM Routine 03/02/2024 4:30 AM EDT COMPREHENSIVE METABOLIC PANEL Routine 03/02/2024 4:30 AM EDT CBC (WITH DIFF) Routine 03/02/2024 4:30 AM EDT POCT GLUCOSE Routine 03/02/2024 4:26 AM EDT POCT GLUCOSE Routine 03/02/2024 12:12 AM EDT POCT GLUCOSE Routine 03/01/2024 7:55 PM EDT SCAN DOC: TELEMETRY STRIPS 03/01/2024 7:46 PM EDT DIFFERENTIAL, AUTOMATED STAT 03/01/20 24 7:02 PM EDT HEMOGRAM STAT 03/01/2024 7:02 [...] 7:45 AM EDT Transfer Skin Pedicle Flap (23088) 03/01/2024 7:42 AM EDT DUODENUM ADENCARCINOMA Part Remv Panc, Prox+Remv Duod+Anast ([id number]) 03/01/2024 7:42 AM EDT DUODENUM ADENCARCINOMA [id number] ONLY Routine 7:21 AM EDT CREATININE Routine 03/01/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 03/01/2024 7:03 AM EDT HC HEPATITIS C ANTIBODY Routine 12/26/19 23 11:50 AM EDT CHAN (nonalcoholic steatohepatitis) from Last 3 Months or Most Recently Relevant to Health Maintenance Results * Scan Doc: Lab (05/28/2024 12:00 AM EDT) Only the most recent of3 resultswithin the time period is included. Narrative 05/28/2024 12:00 AM EDT Ordered by an unspecified provider. Scanning Provider MEDIA MGR SCAN EXT O RDR/RSLT * C-peptide (05/21/2024 10:13 AM EDT) C-Peptide [...] Gordon MD CHEMISTRY ORDERABLES Performing Organization Address [facility] Co de Phone Number [facility] [place] [address] * LDL Cholesterol, Direct (05/21/2024 10:13 AM EDT) Pathologist [facility] LDL Cholesterol, Direct 54 mg/dL 05/21/2024 11:09 [...] MD CHEMISTRY ORDERABLES [facility] [place] [address] * (ABNORMAL) Hemoglobin A1c (05/21/2024 10:13 AM [...] red blood cell turnover may not be chain sales representative of glycemic control. Reference Interval: 4.3 - 5.6% 5.7 - 6.4%: Consistent with prediabetes >=6.5%: Consistent with diagnosis of diabetes mellitus Estimated Average Glucose 186 mg/dL 05/21/2024 10:51 AM EDT [facility] Blood VENOUS BLOOD SPECIMEN / Unknown Venipuncture / Unknown 05/21/2024 10:13 AM EDT 05/21/2024 10:13 AM EDT Rosaline Gordon MD CHEMISTRY ORDERABLES [facility] [place] [address] * (ABNORMAL) Glucose Non-fasting (05/21/2024 10:13 AM [...] MD CHEMISTRY ORDERABLES [facility] [place] [address] * IR Drain Check/Change/Remove (05/05/2024 11:34 AM [...] sterile barrier technique was used throughout. ?? Sql Data Analyst fluoroscopic images were obtained. ??Contrast was injected [...] APRN CHEMISTRY ORDERABLES [facility] [place] [address] * (ABNORMAL) Protein/Creatinine Ratio, urine (05/05/2024 7:19 [...] APRN URINE ORDERABLES [facility] [place] [address] * (ABNORMAL) U Albumin/Cre Ratio (05/05/2024 7:19 [...] APRN URINE ORDERABLES [facility] [place] [address] * (ABNORMAL) Vitamin D, 25-Hydroxy (05/05/2024 7:19 [...] Zamudio APRN CHEMISTRY ORDERABLES Performing Organization Address City/[facility] Co de Phone Number [facility] [place] [address] * Phosphorus (05/05/2024 7:19 AM EDT) Only the most recent of19 resultswithin the time period is included. Phosphorus 3.0 2.5 - 4.5 mg/dL 05/05/2024 7:56 AM EDT [facility] Blood VENOUS BLOOD SPECIMEN / Unknown Venipuncture / Unknown 05/05/2024 7:19 AM EDT 05/05/2024 7:23 AM EDT Shahida Zamudio APRN CHEMISTRY ORDERABLES Performing Organization Address [facility] de Phone Number [facility] [place] [address] * IR Mediport Placement (04/26/2024 11:04 AM EDT) Anatomical Region Laterality Modality X-Ray Angiograph y Narrative 04/26/2024 11:38 AM EDT Interventional Radiology Procedure Note Procedure: Venous chest port implant Indication: Duodenal adenocarcinoma, 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 Blood CAPILLARY BLOOD / Unknown 04/26/2024 9:51 AM EDT 04/26/2024 9:52 AM EDT Rodriguez Fowler MD POINT OF CARE TEST O RDERABLES [facility] [place] [address] * EKG 12 Lead (04/21/2024 9:24 AM EDT) Only the most recent of3 resultswithin the time period is included. [facility] Ventricular rate 65 BPM MUSE SYSTEM Atrial Rate 65 BPM MUSE SYSTEM P-R Interval 152 ms MUSE SYSTEM QRS Duration 92 ms MUSE SYSTEM Q-T Interval 432 ms MUSE SYSTEM QTC Calculated (Bezet) 449 ms MUSE SYSTEM Calculated P [place] 64 degrees MUSE SYSTEM Calculated R [place] 52 degrees MUSE SYSTEM Calculated T [place] 59 degrees MUSE SYSTEM INTERPRETATION Normal sinus rhythm Normal ECG When compared with ECG of 29-MAR-2024 15:33, No significant change was found Confirmed by MD Jeanmarie, Meaghan ([id number]) on 04/21/2024 8:37:04 PM MUSE SYSTEM 04/21/2024 9:24 AM EDT 04/21/2024 8:37 PM EDT Unknown ECG ORDERABLES MUSE SYSTEM * PGx Oncology (04/20/2024 12:39 PM EDT) [facility] NGS Report Status Normal 04/27/2024 4:56 PM EDT [facility] Blood VENOUS BLOOD SPECIMEN / Unknown Venipuncture / Unknown 04/20/2024 12:39 PM EDT 04/20/2024 12:39 PM EDT Rodriguez Fowler MD MOLECULAR ORDERABLES [facility] [place] [address] * (ABNORMAL) Iron and TIBC (04/20/2024 12:39 PM EDT) [facility] Iron 49 45 - 160 mcg/dL 04/20/2024 [...] MD CHEMISTRY ORDERABLES [facility] [place] [address] * (ABNORMAL) CBC (with Diff) (04/20/2024 12:39 PM EDT) [facility] White Blood Cell 7.18 x10(3)/mc L 04/20/2024 12:49 PM EDT [facility] Red Blood Cell 5.26 4.58 - 5.54 x10(6)/mc L 04/20/2024 12:49 PM EDT [facility] Hemoglobin 12.6(L) 13.7 - 16.5 g/dL 04/20/2024 12:49 PM EDT [facility] Hematocrit 40.5 40.5 - 48.5 % 04/20/2024 12:49 PM EDT [facility] Mean Cell Volume 77.0(L) 82.9 - 93.1 fL 04/20/2024 12:49 PM EDT [facility] Mean Cell Hemoglobin 24.0(L) 27.5 - 32.1 pg 04/20/2024 12:49 PM [facility] Mean Cell Hemoglobin Concentration 31.1(L) 32.0 - 35.7 g/dL 04/20/2024 12:49 PM [facility] Platelet 178 145 - 357 x10(3)/mc L 04/20/2024 12:49 PM [facility] Mean Platelet Volume 10.5 7.6 - 12.9 fL 04/20/2024 12:49 PM [facility] RDW Standard Deviation 48.7(H) 36.0 - 45.0 fL 04/20/2024 12:49 PM [facility] RDW coefficient of variation 17.7(H) 11.4 - 13.8 % 04/20/2024 12:49 PM [facility] NRBC% auto 0.0 % 04/20/2024 12:49 PM [facility] NRBC Absolute 0.00 0.00 - 0.00 x10(3)/mc L 04/20/2024 12:49 PM [facility] Neutrophil % 66.4 % 04/20/2024 12:49 PM [facility] Neutrophil Absolute (ANC) - Automated 4.77 1.70 - 6.10 x10(3)/mc L 04/20/2024 12:49 PM [facility] Lymph % 20.8 % 04/20/2024 12:49 PM [facility] Lymph Absolute 1.49 0.90 - 3.20 x10(3)/mc L 04/20/2024 12:49 PM [facility] Monocyte % 6.1 % 04/20/2024 12:49 PM [facility] Monocyte Absolute 0.44 0.30 - 0.90 x10(3)/mc L 04/20/2024 12:49 PM [facility] Eos % 5.3 % 04/20/2024 [...] HEMATOLOGY ORDERABLE S [facility] [place] [address] * Magnesium (04/20/2024 12:39 PM EDT) Only the most recent of18 resultswithin the time period is included. Magnesium 0.74 0.69 - 1.07 mMol/L 04/20/2024 1:28 PM EDT [facility] Blood VENOUS BLOOD SPECIMEN / Unknown Venipuncture / Unknown 04/20/2024 12:39 PM EDT 04/20/2024 12:39 PM EDT Rudi Hernandez MD CHEMISTRY ORDERABLES [facility] [place] [address] * Ferritin (04/20/2024 12:39 PM EDT) Ferritin 55 31 - 409 ng/ml 04/20/2024 1:24 PM EDT [facility] Blood VENOUS BLOOD SPECIMEN / Unknown Venipuncture / Unknown 04/20/2024 12:39 PM EDT 04/20/2024 12:39 PM EDT Rudi Hernandez MD CHEMISTRY ORDERABLES Performing Organization Address City/[facility]/ZIP Co de Phone Number [facility] [place] [address] * CEA (04/20/2024 12:39 PM EDT) Carcinoembryonic [...] Fowler MD CHEMISTRY ORDERABLES Performing Organization Address City/[facility]/ZIP Co de Phone Number [facility] [place] [address] * (ABNORMAL) Comprehensive metabolic panel (04/20/2024 12:39 [...] 135 - 145 mMol/L 04/20/2024 1:28 PM [facility] Potassium 4.1 3.5 - 5.0 mMol/L 04/20/2024 1:28 PM [facility] Chloride 104 98 - 107 mMol/L 04/20/2024 1:28 PM [facility] Carbon Dioxide 27 22 - 31 mMol/L 04/20/2024 1:28 PM [facility] Anion Gap 10 5 - 15 mMol/L 04/20/2024 1:28 PM [facility] Calcium 9.2 8.5 - 10.5 mg/dL 04/20/2024 1:28 PM [facility] Protein, Total 6.5 6.1 - 8.0 g/dL 04/20/2024 1:28 PM [facility] Albumin 3.5 3.2 - 5.2 g/dL 04/20/2024 1:28 PM [facility] Aspartate Aminotransferase 15 <=39 unit/L 04/20/2024 1:28 PM [facility] Alanine Aminotransferase 14 0 - 55 unit/L 04/20/2024 1:28 PM [facility] Alkaline Phosphatase 71 40 - 130 unit/L 04/20/2024 1:28 PM [facility] Bilirubin, Total 0.3 <=1.3 mg/dL 04/20/2024 1:28 PM [facility] Est Glomerular Filtration Rate - Male 108 mL/min/1. 73 m?? 04/20/2024 1:28 PM [facility] Comment: This patient's estimated GFR [...] MD CHEMISTRY ORDERABLES [facility] [place] [address] * CT Abdomen & Pelvis w Contrast (04/08/2024 11:27 AM EDT) WORKSTATION ID [id number] RAD Anatomical Region Laterality Modality Abdomen, Pelvis [...] who have questions please contact the health menagerie caretaker that requested your imaging first. ? Electronically signed by: Flakito Cummings MD, [facility] ([phone]), at 04/09/2024 10:10 AM Narrative 04/09/2024 10:10 [...] patients who have questions please contactthe health menagerie caretaker that requested your imaging first. Rudi Hernandez MD IM CT ORDERABLES * Amylase Level Body Fluid [...] analysis of body fluids were determined by [facility] in accordance with CLIA requirements. This laboratory is qualified under CLIA to perform high-complexity testing. Amylase BF Type BASIA Drain [facility] BASIA Drain 04/08/2024 9:30 AM EDT 04/08/2024 9:40 AM EDT Narrative Resulting Agency Comment Spec In Lab Rudi Hernandez MD BODY FLUIDS AND STOO LS ORDERABLES [facility] [place] [address] * (ABNORMAL) Hemogram (04/08/2024 8:17 AM EDT) [...] Platelet 248 145 - 357 x10(3)/mc L [facility] RDW Standard Deviation 47.8(H) 36.0 - 45.0 [facility] RDW coefficient of variation 18.4(H) 11.4 - 13.8 % [facility] Mean Platelet Volume 11.0 7.6 - 12.9 fL [facility] NRBC% auto 0.0 % [facility] NRBC Absolute 0.000 0.000 - 0.000 x10(3)/mc L [facility] Blood 04/08/2024 8:17 AM EDT 04/08/2024 8:38 AM EDT Narrative Resulting Agency Comment Spec In Lab Gary KIM HEMATOLOGY ORDERABLE S [facility] [place] [address] * (ABNORMAL) Differential, Automated (04/08/2024 8:17 AM EDT) Only the most recent of16 resultswithin the time period is included. Neutrophil % 73.9 % [facility] Neutrophil Absolute 7.47(H) 1.70 - 6.10 x10(3)/mc L [facility] Lymph % 17.6 % [facility] Lymphocytes Abs 1.8 0.9 - 3.2 x10(3)/mc L [facility] Monocyte % 4.5 % [facility] Monocyte Abs 0.4 0.3 - 0.9 x10(3)/ L [facility] Eos % 2.6 % [facility] Eosinophils Abs 0.3 0.0 - 0.4 x10(3)/ L [facility] Basophil % 1.1 % [facility] Baso Absolute 0.1 0.0 - 0.1 x10(3)/mc L [facility] Immature Gran % 0.30 % [facility] Comment: Immature granulocytes(IG's)percentage and absolute count will include metamyelocytes, myelocytes, and promyelocytes. Blood smears from CBCs yielding IG's will be scanned manually for concordance. If this scan disagrees with the automated IG or if promyelocytes are noted, a manual differential will be performed. Immature Gran Absolute 0.03 0.00 - 0.04 x10(3)/mc L [facility] Blood 04/08/2024 8:17 AM EDT 04/08/2024 8:38 AM EDT Narrative Resulting Agency Comment Spec In Lab Gary KIM HEMATOLOGY ORDERABLE S Performing Organization Address [facility]/ZIP Co de Phone Number [facility] [place] [address] * POCT Glucose (04/01/2024 12:31 PM EDT) [...] CARE TEST O RDERABLES Performing Organization Address [facility] Co de Phone Number [facility] [place] [address] * (ABNORMAL) Basic Metabolic Panel (non-fasting) (04/01/2024 [...] MD CHEMISTRY ORDERABLES [facility] [place] [address] * Scan Doc: Telemetry Strips (03/30/2024 11:34 AM EDT) Only the most recent of7 resultswithin the time period is included. Narrative 03/30/2024 11:34 AM EDT Ordered by an unspecified provider. Scanning Provider MEDIA MGR SCAN EXT O RDR/RSLT * Triglyceride (03/29/2024 4:30 AM EDT) Triglyceride 91 mg/dL [facility] Comment: Normal: ?<150 mg/dL Borderline High: 150-199 mg/dL High: ?200-499 mg/dL Very High: ? >th=097 mg/dL Blood Venous Draw / Unknown 03/29/2024 4:30 AM EDT 03/29/2024 4:36 AM EDT Narrative Resulting Agency Comment Spec In Lab Rudi Hernandez MD CHEMISTRY ORDERABLES Performing Organization Address City/[facility]/ZIP Co de Phone Number [facility] [place] [address] * (ABNORMAL) Hepatic Function Panel (03/29/2024 4:30 [...] Hernandez MD CHEMISTRY ORDERABLES Performing Organization Address City/[facility]/ZIP Co de Phone Number [facility] [place] [address] * Lavender Tube HOLD (03/27/2024 12:14 AM EDT) [facility] Signature Lavender Hold Sample in lab. [facility] Blood Venous Draw / Unknown 03/27/2024 12:14 AM EDT 03/27/2024 12:40 AM EDT Chalino Cristina MD HEMATOLOGY ORDERABLE S [facility] [place] [address] * Place PICC Line: Contact Vascular Access Page [phone] Extremity to exclude: No restrictions; Is PICC [...] to the planned procedure. Hand Hygiene: The electronic intelligence officer did perform hand hygiene prior to line insertion. Catheter type: PICC Lot number: [id number] Procedure Technique: Skin was prepped with chlorhexidine. [...] Team) (03/26/2024 4:02 PM EDT) WORKSTATION ID [id number] RAD Anatomical Region Laterality Modality N/A Radio [...] who have questions please contact the health menagerie caretaker that requested your imaging first. ? Electronically signed by: Bryan Machado MD, [facility] ??([phone]), at 03/26/2024 4:17 PM Narrative 03/26/2024 4:17 [...] FINDINGS: Intraprocedural frontal radiograph (final image time [id number]:50) of the mediastinum demonstrates a right PICC [...] patients who have questions please contactthe health menagerie caretaker that requested your imaging first. Electronically signed by: Bryan Machado MD, [facility]([phone]), at 03/26/2024 4:17 PM Rudi Hernandez MD [...] documented by the IR Nurse. ?? Rudi eHrnandez MD IMG CT ORDERABLES * (ABNORMAL) Anaerobic [...] - GENER AL ORDERABLES Performing Organization Address [facility] Co de Phone Number [facility] [place] [address] * (ABNORMAL) Body Fluid Culture, Aerobic (03/25/2024 [...] - GENER AL ORDERABLES Performing Organization Address City/[facility]/ZIP Co de Phone Number [facility] [place] [address] * Lactate, whole blood, send to lab ([facility]) (03/25/2024 6:00 AM EDT) Only the most recent of2 resultswithin the time period is included. Lactate WB 1.2 0.5 - 2.2 mmol/L [facility] Blood 03/25/2024 6:00 AM EDT 03/25/2024 6:11 AM EDT Narrative Resulting Agency Comment Spec In Lab Rudi Hernandez MD CHEMISTRY ORDERABLES Performing Organization Address [facility] Co de Phone Number [facility] [place] [address] * (ABNORMAL) Beta Hydroxybutyrate (03/25/2024 4:35 AM EDT) Beta-hydroxybuturat e 6.30(H) 0.00 - 0.30 mmol/L [facility] Comment: This test has not been cleared by the [place] FDA. Performance characteristics of this test were determined by [facility] in accordance with CLIA requirements. This laboratory is qualified under CLIA to perform high-complexity testing. Blood Venous Draw / Unknown 03/25/2024 4:35 AM EDT 03/25/2024 4:42 AM EDT Narrative Resulting Agency Comment Spec In Lab Rafi Grimaldo MD CHEMISTRY ORDERABLE S Performing Organization Address [facility] Co de Phone Number [facility] [place] [address] * Request For 2nd Read CT Abdomen & Pelvis (03/24/2024 7:48 PM EDT) WORKSTATION ID [id number] RAD Anatomical Region Laterality Modality Abdomen, Pelvis [...] who have questions please contact the health menagerie caretaker that requested your imaging first. ? Electronically signed by: Ilana Mirza MD, [facility] ([phone]), at 03/25/2024 9:19 AM Narrative 03/25/2024 9:19 AM EDT EXAMINATION: REQUEST FOR 2ND READ CT ABDOMEN AND PELVIS CLINICAL HISTORY: s/p Whipple w/ po intolerance, leukocytosis, tachycardia, hypoT - c/f acute findings, ?fluid collection or abscess; Sending Institution [facility]; Date of exam 20240324; I believe a [...] c/f acute findings, ?fluid collection or abscess; [facility]; Date of exam 20240324; I believe [...] [place] hepatis measures 4 x 3.6 cm ([id number] image 28). GALLBLADDER/BILIARY TREE: Status post cholecystectomy. [...] patients who have questions please contactthe health menagerie caretaker that requested your imaging first. Electronically signed by: Ilana Mirza MD, [facility]([phone]), at 03/25/2024 9:19 AM Rudi Hernandez MD IMG OUTSIDE INTERPRE TATION ORDERABLES * Film Library- Storage Only CT Chest Abdomen Pelvis (03/24/2024 5:27 PM EDT) Narrative RAD - 03/24/2024 5:27 PM EDT This exam is auto-finalizing. It's purpose is for storage only. Rudi Hernandez MD IMG FILM LIBRARY ORD ERABLES Performing Organization Address City/[facility]/ZIP Co de Phone Number [place], [place] * Scan, Peripheral Blood (03/08/2024 4:44 AM EDT) Plat estimate Normal [facility] RBC Morphology Abnormal [facility] Hypochromia Slight [facility] Polychromasia Present >5/HPF [facility] Rosebud Cells 6-10 /HPF [facility] Blood 03/08/2024 4:44 AM EDT 03/08/2024 5:05 AM EDT Narrative Resulting Agency Comment Spec In Lab Latonia Red MD HEMATOLOGY ORDERABLE S [facility] [place] [address] * XR Abdomen Flat & Upright (03/06/2024 5:29 AM EDT) Pathologist [employer] [place] WORKSTATION ID [id number] [facility] Anatomical Region Laterality Modality Abdomen N/A Digital [...] who have questions please contact the health menagerie caretaker that requested your imaging first. ? Electronically signed by: Jenelle Cervantes MD, [facility] ([phone]), at 03/06/2024 8:15 AM Narrative 03/06/2024 8:15 [...] patients who have questions please contactthe health menagerie caretaker that requested your imaging first. Rudi Hernandez MD IMG DX ORDERABLES * Sodium, urine, random (03/03/2024 1:19 AM EDT) Sodium, Urine <20 mmol/L [facility] Urine 03/03/2024 1:19 AM EDT 03/03/2024 1:28 AM EDT Narrative Resulting Agency Comment Spec In Lab Rudi Hernandez MD URINE ORDERABLES Performing Organization Address City/[facility]/ZIP Co de Phone Number [facility] [place] [address] * Creatinine, urine, random (03/03/2024 1:19 AM EDT) Creatinine, Urine 288 mg/dL [facility] Urine 03/03/2024 1:19 AM EDT 03/03/2024 1:28 AM EDT Narrative Resulting Agency Comment Spec In Lab Rudi Hernandez MD URINE ORDERABLES Performing Organization Address City/[facility]/ZIP Co de Phone Number [facility] [place] [address] * Green Tube HOLD (03/03/2024 1:04 AM EDT) Green Hold Sample in lab. [facility] Blood Venous Draw / Unknown 03/03/2024 1:04 AM EDT 03/03/2024 1:12 AM EDT Latonia Red MD CHEMISTRY ORDERABLES [facility] [place] [address] * XR Abdomen 1 view (Generic) (03/02/2024 9:54 PM EDT) Only the most recent of2 resultswithin the time period is included. WORKSTATION ID [id number] RAD Anatomical Region Laterality Modality Abdomen N/A [...] who have questions please contact the health menagerie caretaker that requested your imaging first. ? [...] patients who have questions please contactthe health menagerie caretaker that requested your imaging first. Electronically signed by: Maryan Lagos MD, [facility]([phone]), at 03/02/2024 10:20 PM Rudi Hernandez MD IMG DX ORDERABLES * (ABNORMAL) Aspartate Aminotransferase (03/02/2024 5:27 AM EDT) Aspartate Aminotransferase 89(H) 0 - 39 unit/L [facility] Blood 03/02/2024 5:27 AM EDT 03/02/2024 6:06 AM EDT Narrative Resulting Agency Comment Spec In Lab Rudi Hernandez MD CHEMISTRY ORDERABLES [facility] [place] [address] * (ABNORMAL) BLOOD GAS 2 ARTERIAL (03/01/2024 [...] CARE TEST O ELKIN Performing Organization Address City/[facility]/ZIP Co de Phone Number [facility] [place] [address] * Specimen to Pathology (03/01/2024 3:40 PM EDT) Only the most recent of4 resultswithin the time period is included. AP Specimen 03/01/2024 3:40 PM EDT 03/01/2024 3:40 PM EDT Narrative [facility] - 03/01/2024 3:40 PM EDT Specimen requisition ordered. ??Separate Pathology report to follow Rudi Hernandez MD PATHOLOGY/CYTOLOGY O ELKIN Performing Organization Address City/[facility] Co de Phone Number [facility] [place] [address] * Surgical Pathology Report (03/01/2024 10:49 AM EDT) Final Diagnosis [id number] ? Location: L4WD; 0404; B The signing [...] MD Verified: ??03/10/2024 16:41 ??Pathologist Performed at: ??-[facility] Dept. of Pathology, [place] [id number] Mechanical Technical Service Specialist: Lee Sutton MD, AP, ??IA Certificate: [id number] SYNOPTIC Specimen ? Procedure: ??Pancreaticoduodene ctomy (Whipple [...] ??pT3 ? pN Category: ??pN1 ? CAP eCC 2021 Q1 Release ADDITIONAL STUDIES Whole slide [...] is inked red. . SPECIMEN PROCESSING Sections/Processing: Spark Plug Tester sections in 41 cassettes as follows: ?B1: [...] 1.4 x 1.0 x 0.7 cm. Sections/Processing: Spark Plug Tester sections to include the entire lymph node [...] EDT Rudi Hernandez MD PATHOLOGY/CYTOLOGY O RDERABLES [facility] [place] [address] * Type and Screen Validity (03/01/2024 9:31 AM EDT) T&S only valid at [facility] Comment:This Type and Screen result is only valid at the [facility] Blood 03/01/2024 9:31 AM EDT 03/01/2024 9:31 AM EDT Narrative Resulting Agency Comment Spec In Lab Rudi Hernandez MD BLOOD BANK LAB ORDER DEDRA [facility] [place] [address] * ABORH Recheck Status (03/01/2024 9:31 AM EDT) ABORH Recheck Order Order Placed [facility] ABORH Type Recheck Completed [facility] Blood 03/01/2024 9:31 AM EDT 03/01/2024 9:31 AM EDT Narrative Resulting Agency Comment Spec In Lab Rudi Hernandez MD BLOOD BANK LAB ORDER DEDRA [facility] [place] [address] * Type and screen ([facility]/CGP/FABIOLA) (03/01/2024 9:31 AM EDT) ABORH Type A POSITIVE [facility] Patient BB History Not Found [facility] Expires at [id number] on: 03/04/2024 [facility] Ab Screen Interp Negative [facility] Blood 03/01/2024 9:31 AM EDT 03/01/2024 9:31 AM EDT Narrative [facility] - 03/01/2024 9:31 AM EDT This Type and Screen result is only valid at the [facility] Resulting Agency Comment Spec In Lab Rudi Hernandez MD BLOOD BANK LAB ORDER DEDRA [facility] [place] [address] * XR Fluoro No Rad <1Hr - OR Use (03/01/2024 7:45 AM EDT) Narrative Dicom, Auditing User - 03/01/2024 7:45 AM EDT This exam is auto-finalizing. No interpretation was done. Shyla Bird MD IMG FLUORO BENJI IVEY * [id number] ONLY (03/01/2024 7:21 AM EDT) Narrative Shyla [...] 300 mgI/mL, 2 mL Performed by: ?? Resident/NEUROLOGY TEACHER: ? Juan Michelle MD ?? Attending Physician: ? Shyla Bird MD Authorized by: Shyla Bird MD ?? ~~~~~~~~~~~~~~~~~~~~~~~~~~~~~~~~~~~~~~~~~~~~~~~~~~~~~~~~~~~~ Shyla Bird MD TELEVISION EQUIPMENT OPERATOR [facility] S * (ABNORMAL) Creatinine (03/01/2024 7:04 AM EDT) [facility] Creatinine 0.77(L) 0.80 - 1.50 mg/dL [facility] [...] MD CHEMISTRY ORDERABLES [facility] [place] [address] * Hepatitis C Antibody (12/25/2022 11:50 AM EDT) Pathologist [facility] Hepatitis C Antibody Negative Negative [facility] Blood 12/25/2022 11:5 0 AM EDT 12/25/2022 12:13 PM EDT Narrative Resulting Agency Comment Spec In Lab Eugenia Barrera APRN CHEMISTRY ORDERABL ES [facility] [place] [address] from Last 3 Months or Most Recently [...] discussion: request for full code Care Teams Chin Strap Cutter Relationship Specialty Start Date End Date Olga Hoffman APRN [address] [place] [address] PCP - General Family Medicine 10/30/22
--- OUTSIDE RECORDS SUMMARY | 2024-05-31 21:19 | XMS_ITS | Encounter Summary ---
Author Organization [facility] Address [address] [place] [address] Care Team Providers Care Drawer Liner Name Role Phone Ramiro Cardenas MD Primary Care Provider [phone] Encounter Details Date Type Department Care Team [...] on filedocumented in this encounter Care Teams Drawer Liner Relationship Specialty Start Date End Date Ramiro Cardenas MD [address] [place] [address] PCP - General 04/24/09 documented as of this encounter
--- OUTSIDE RECORDS SUMMARY | 2024-05-31 21:19 | XMS_ITS | Encounter Summary ---
Author Organization [facility] Address [address] [place] [address] Care Team Providers Care Construction Pit Worker Name Role Phone Ramiro Cardenas MD Primary Care Provider [phone] Reason for Visit * Reason Onset Date Comments Medication Problem 05/01/2022 re: pre/post- op drops at pharmacy Encounter Details Date Type Department Care Team (Late st Contact Info) Description 05/01/2022 Telephone [facility] Ophthalmology - [place] [address] [place], [place] [address] Ezequiel Andrea MD [address] [place] [phone] Medication Problem (re: pre/post-op drops at pharmacy) [...] on filedocumented in this encounter Care Teams Construction Pit Worker Relationship Specialty Start Date End Date Ramiro Cardenas MD [address] [place], [place] [id number] PCP - General 04/24/09 documented as of this encounter
--- OUTSIDE RECORDS SUMMARY | 2024-05-31 21:19 | XMS_ITS ---
Author Organization [facility] Address [address] [facility] [place] [address] Care Team Providers Care Purchasing Clerk Name Role Phone Olga Hoffman APRN Primary Care Provider [phone] Active Problems Problem Noted Date Diagnosed Date [...] Medications Current Day (Day 1 , Cycle 2 - Planned for 06/11/2024) Next Day (Day 3, Cycle 2 - Planned for 06/13/2024) fluorouraciL (ADRUCIL)fluorouraciL (AdruciL) in sodium chloride 0.9% [...] treatments are documented for this patient in [facility]. Treatments may have been administered in another system. 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
--- OUTSIDE RECORDS SUMMARY | 2024-05-31 21:19 | XMS_ITS | Encounter Summary ---
Author Organization [facility] Address [address] [place] [address] Care Team Providers Care Felled Seam Operator Name Role Phone Ramiro Cardenas MD Primary Care Provider [phone] Encounter Details Date Type Department Care Team (Late st Contact Info) Description 11/16/2010 Results Only [facility] Laboratory Services - [facility] ([facility]) [address] [place], [place] [phone] Rodríguez Ramirez MD [address] [place] [address] Social History Tobacco Use Types Packs/Day Years [...] ? KALIE, CHARLES ? Accession #: ? [id number] ? : ? 1975 (Age: 34) ??M ? Collect Date: ? 11/16/2010 ? Location: ? [facility] ? Receive Date: ? 11/16/2010 ? Provider: RODRÍGUEZ RAMIREZ MD ? Copy to: JYOTI QUIÑONES RIVET SORTER ? ROBERT FINE MD ? Final Pathologic Diagnosis: ? A. ?Vas deferens, right, partial resection: ? 1. ?Portion of vas deferens with intact lumen. ? B. ?Vas deferens, left, partial resection: ? 1. ?Portion of vas deferens with intact lumen. ? Document reviewed and electronically signed by: ? Serjio Hdogson MD ? Report ??Date: 11/19/2010 17:24 ? [...] ??The remainder of the tissue is unremarkable. ??Shop Coordinator ?? sections are submitted in one cassette [...] remainder of the specimen is unremarkable. ? Shop Coordinator sections of the specimen are submitted in one cassette as (B). ?? (Dr. Segovia)/fauziak ? End of Report ? [facility] 11/16/2010 11/16/2010 6:3 4 EST Rodríguez Ramirez MD PATHOLOGY ORDERABLE S Performing Organization Address City/State/[facility] Co de Phone Number [facility] [address] [place] [address] documented in this encounter Visit Diagnoses Not on filedocumented in this encounter Care Teams Felled Seam Operator Relationship Specialty Start Date End Date Ramiro Cardenas MD [address] [place] [address] PCP - General 04/24/09 documented as of this encounter
--- OUTSIDE RECORDS SUMMARY | 2024-05-31 21:19 | XMS_ITS | Encounter Summary ---
Author Organization [facility] Address [address] [place] [address] Care Team Providers Care Industrial Equipment Mechanic Name Role Phone Ramiro Cardenas MD Primary Care Provider [phone] Encounter Details Date Type Department Care Team (Late st Contact Info) Description 06/26/2009 Orders Only [facility] Medicine [address] [address] Robb Decker MD [address] [place], [place] [phone] Social History Tobacco Use Types Packs/Day Years [...] ? KALIE, CHARLES ? Accession #: ? [id number] ? : ? 1975 (Age: 33) ??M [...] length x 0.3 cm ?? in diameter. ??Banana Room Cutter sections are submitted in one cassette. ??(M. ? Luisa)/kmanalilia ? End of Report ? [facility] 06/26/2009 06/27/2009 8:5 2 EDT Robb Decker MD PATHOLOGY ORDERABLES [facility] [address] [place] [address] documented in this encounter Visit Diagnoses Not on filedocumented in this encounter Care Teams Industrial Equipment Mechanic Relationship Specialty Start Date End Date Ramiro Cardenas MD [address] [place] [address] PCP - General 04/24/09 documented as of this encounter
--- OUTSIDE RECORDS SUMMARY | 2024-05-31 21:19 | XMS_ITS | Encounter Summary ---
Author Organization [facility] Address [address] [place] [address] Care Team Providers Care Medication Aide Name Role Phone Ramiro Cardenas MD Primary Care Provider [phone] Reason for Visit * Reason Onset Date Comments Appointment Related 12/28/2021 Encounter Details Date Type Department Care Team (Late st Contact Info) Description 12/28/2021 Telephone [place] [address] [place], [place] [phone] Ezequiel Andrea MD [address] [place] [phone] Appointment Related Social History Tobacco Use Types [...] on filedocumented in this encounter Care Teams Medication Aide Relationship Specialty Start Date End Date Ramiro Cardenas MD [address] [place], [place] [phone] PCP - General 04/24/09 documented as of this encounter
--- OUTSIDE RECORDS SUMMARY | 2024-05-31 21:19 | XMS_ITS | Encounter Summary ---
Author Organization [facility] Address [address] [place] [address] Care Team Providers Care Medical Office Manager Name Role Phone Ramiro Cardenas MD Primary Care Provider [phone] Reason for Visit * Reason Comments Cataract Cataract evaluation - both eyes * Consult, Test and Treat (Routine) - Authorization Not Required Specialty Diagnoses / Procedures Referred By Contnina t Referred To Contact Ophthalmology Diagnoses Cortical age-related cataract, bilateral Mohan Butcher, OD [address] [place] [address] Ezequiel Andrea MD [address] [place] [phone] Referral ID Status Reason Start Date Expiration Date Visits Requested Visits Authorized [id number] Authorization Not Required 1 1 Encounter Details Date Type Department Care Team (Late st Contact Info) Description 02/13/2022 10:00 EDT Office Visit [facility] Ophthalmology [address] [phone] Ezequiel Andrea MD [address] [place] [phone] Social History Tobacco Use Types Packs/Day [...] (right eye), May 10 (left eye) at [facility] (check in at Patient Registration). The [...] Endocrine: Diabetes Hematologic: NL Immunologic: Drug Allergy Inside Sales Recruiter: Exposures: None Other: Attestation: Base Eye Exam [...] no retinopathy Refraction Wearing Rx Sphere Cylinder [place] Right -5.00 +1.00 133 Left -4.75 +1.50 082 Age: 1yrs Manifest Refraction (Auto) Sphere Cylinder [place] Dist [place] Right -7.25 +2.00 085 Left -6.00 +2.75 073 Manifest Refraction #2 Sphere Cylinder [place] Dist [place] Right -5.00 +1.00 135 20/50-1 [...] no Risk for anisometropia: low Refractive aim: [place] Referred by: Mohan Butcher, OD ([facility]) 2. Diabetes mellitus Right eye: [...] n o retinopathy Wearing Rx Sphere Cylinder [place] Right eye -5.00 +1.00 133 Left eye -4.75 +1.50 082 Age: 1yrs Manifest Refraction #1 (Auto) Sphere Cylinder [place] Dist [place] Right eye -7.25 +2.00 085 Left eye -6.00 +2.75 073 Manifest Refraction #2 Sphere Cylinder [place] Dist [place] Right eye -5.00 +1.00 135 20/50-1 Left eye -5.25 +1.50 080 20/25 Care Teams Medical Office Manager Relationship Specialty Start Date End Date Ramiro Cardenas MD [address] [place] [address] PCP - General 04/24/09 documented as of this encounter
--- OUTSIDE RECORDS SUMMARY | 2024-05-31 21:19 | XMS_ITS | Encounter Summary ---
Author Organization [facility] Address [address] [place] [address] Care Team Providers Care Trust Vault Custodian Name Role Phone Ramiro Cardenas MD Primary Care Provider [phone] Encounter Details Date Type Department Care Team (Latest Contact Info) Description 02/26/2022 Prep for Procedure [facility] Ophthalmology [facility] [address] [place], [place] [phone] Ezequiel Andrea MD [address] [place] [phone] Combined forms of age-related cataract of left [...] 02/27/2022 documented in this encounter Care Teams Trust Vault Custodian Relationship Specialty Start Date End Date Ramiro Cardenas MD [address] [place], [place] [id number] PCP - General 04/24/09 documented as of this encounter
--- OUTSIDE RECORDS SUMMARY | 2024-05-31 21:19 | XMS_ITS | Encounter Summary ---
Author Organization [facility] Address [address] [place] [address] Care Team Providers Care Knowledge Management Advisor Name Role Phone Unknown, Provider Primary Care Provider [phone] Encounter Details Date Type Department Care Team (Late st Contact Info) Description 04/20/2009 Orders Only [facility] Medicine - [address] [address] Robb Decker MD [address] [place], [place] [phone] Social History Tobacco Use Types Packs/Day Years [...] ? KALIE, CHARLES ? Accession #: ? [id number] ? : ? 1975 (Age: 33) ??M [...] thickness. ??The margins are inked black. ??Two sales representative publications central sections of the larger excision with underlying fibrofatty tissue are submitted as (A1) and (A2) and sales representative publications central sections of the additional excision are ? submitted as (A3). (Simone Law)/mpl ? End of Report ? [facility] 04/20/2009 04/20/2009 18: 41 EDT Robb Decker MD PATHOLOGY ORDERABLES Performing Organization Address City/State/[facility] Co de Phone Number [facility] [address] [place] [address] documented in this encounter Visit Diagnoses Not on filedocumented in this encounter Care Teams Knowledge Management Advisor Relationship Specialty Start Date End Date Unknown, Provider, PCP - General 04/20/09 04/23/09 documented as of this encounter
--- OUTSIDE RECORDS SUMMARY | 2024-05-31 21:19 | XMS_ITS | Encounter Summary ---
Author Organization [facility] Address [facility] [place] [address] Care Team Providers Care Med Surg Rn Name Role Phone Olga Hoffman APRN Primary Care Provider [phone] Reason for Visit * Reason Onset Date Comments Follow-up 05/31/2024 Follow up first time chemotherapy. Encounter Details Date Type Department Care Team (Late st Contact Info) Description 05/31/2024 Telephone Hematology Oncology at [address] [phone] Shayy Moya, RN Follow-up (Follow up first time chemotherapy.) Social History Tobacco Use Types Packs/Day Years Used Date Smoking Tobacco: Never Smokeless Tobacco: Never Alcohol Use Standard Drinks/Week Comments Not Currently 0 (1 standard drink = 0.6 oz pur e alcohol) [facility] Utilities Answer Date Recorded In the past 12 months has [employer], gas, oil, or water [employer] threatened to shut off services in your [...] time in the [facility] 12 [facility] or living in a [facility] (including now)? No 03/25/2024 IPV Inpatient Questions [...] encounter Miscellaneous Notes * Telephone Encounter - Shayy Moya RN - 05/31/2024 9:55 AM EDT Post chemo call Placed call to patient to assess tolerance of first time chemotherapy treatment. Regimen received: Folfox Date of treatment: 05/28/24. Disconnected at [facility] Assessment: Symptom Present (yes[y]/no[n]/ stable[s] from baseline) Additional information/Assessment GI Nausea Vomiting yes Had 1 episode of vomiting both Sun and Mon. Is taking compazine BID. States he is ableto take food/fluids Nausea medication yes Tolerating diet yes Maintaining fluid intake (indicate volume) yes Bowel movements regular yes Diarrhea Mouth sores no General Pain (0 none - 10 high) no Using pain medications Fever no Neuro Level of fatigue (0 - 5) Falls Numbness/tingling in arms/legs Cognitive changes Skin Skin changes Pinpoint red dots Other s/s of bleeding IV site/VAD problems Musculoskeletal Joint swelling or tenderness Arthralgias or myalgias Voiding problems Color and quality of urine Cardio-pulmonary Shortness of breath Chest pain Swelling in legs Calf pain or tenderness Cough (productive/non-productive) Psychosocial Coping I Need prescription renewals Other issues : Anxiety. Support provided Education provided: Plan: Compazine BID for now. Reinforced to patient/care-cert occupational therapy asst to call facility 07/04 with any new/worsening signs and symptoms orconcerns or questions. Phone number provided. Pt verbalized understanding and is in agreement with plan. documented in this encounter Plan of Treatment Upcoming Encounters Date Type Department Care Team (Late st Contact Info) Description 06/11/2024 9:30 AM EDT Office Visit Hematology/Oncology at [address] [phone] Rodriguez Fowler MD [facility] [place] [address] Sherry Cedillo APRN [address] [place] [address] DR HEMATOLOGY AND ONCOLOGY [place], [place] [phone] 06/11/2024 10:00 AM EDT Infusion Hematology Oncology at [address] [phone] 06/25/2024 9:30 AM EDT Office Visit Hematology/Oncology at [address] [phone] Rodriguez Fowler MD [facility] [place] [address] Sherry Cedillo APRN [address] [place] [address] DR HEMATOLOGY AND ONCOLOGY [place], [place] [address] 06/25/2024 10:00 AM EDT Infusion Hematology Oncology at [address] [phone] documented as of this encounter Visit Diagnoses Not on filedocumented in this encounter Care Teams Med Surg Rn Relationship Specialty Start Date End Date Olga Hoffman APRN [address] [place] [address] PCP - General Family Medicine 10/30/22 documented as of this encounter
--- OUTSIDE RECORDS SUMMARY | 2024-05-31 21:20 | XMS_ITS | Encounter Summary ---
Author Organization [facility] Address [facility] [place] [address] Care Team Providers Care Strip Catcher Name Role Phone Olga Hoffman APRN Primary Care Provider [phone] Encounter Details Date Type Department Care Team (Late st Contact Info) Description 04/21/2024 9:00 AM EDT Office Visit [place] [address] Rudi Hernandez MD [facility] [place] [address] H/O Whipple procedure Social History Tobacco Use Types Packs/Day Years Used Date Smoking Tobacco: Never Smokeless Tobacco: Never Alcohol Use Standard Drinks/Week Comments Not Currently 0 (1 standard drink = 0.6 oz pur e alcohol) [facility] Utilities Answer Date Recorded In the past 12 months has [employer], gas, oil, or water [employer] threatened to shut off services in your [...] any time in the past 12 m [facility], were you homeless or [...] Nick is now 2 weeks postop from [place]. He has been home for over a [...] 9:30 AM EDT Office Visit Hematology/Oncology at [address] [phone] Rodriguez Fowler MD [facility] [place] [address] Sherry Cedillo APRN [address] [place] [address] DR [place] [address] 06/11/2024 10:00 AM EDT Infusion Hematology Oncology at [address] [phone] 06/25/2024 9:30 AM EDT Office Visit Hematology/Oncology at [address] [phone] Rodriguez Fowler MD [facility] [place] [address] Sherry Cedillo APRN [address] [place] [address] DR [place] [address] 06/25/2024 10:00 AM EDT Infusion Hematology Oncology at [address] [phone] documented as of this encounter Visit Diagnoses Diagnosis H/O Whipple procedure documented in this encounter Care Teams Strip Catcher Relationship Specialty Start Date End Date Olga Hoffman APRN [address] [place] [address] PCP - General Family Medicine 10/30/22 documented as of this encounter
--- OUTSIDE RECORDS SUMMARY | 2024-05-31 21:20 | XMS_ITS | Encounter Summary ---
Author Organization [facility] [place] [address] Care Team Providers Care Ediscovery Project Manager Name Role Phone Olga Hoffman APRN Primary Care Provider [phone] Reason for Referral * Diagnostic Test (Routine) - Closed Specialty Diagnoses / Procedures Referred By Contac t Referred To Contact Radiology Diagnoses Duodenal adenocarcinoma Procedures IR Mediport Placement Rodriguez Fowler MD [facility] [place] [address] [facility] [place] [address] Referral ID Status Reason Start Date Expiration Date V isits Requested Visits Authorized [id number] Closed Specialty Service Requested 04/20/2024 10/21/2025 1 1 Reason for Visit * Diagnostic Test (Routine) - Closed Specialty Diagnoses / Procedures Referred By Contac t Referred To Contact Radiology Diagnoses Duodenal adenocarcinoma Procedures IR Mediport Placement Rodriguez Fowler MD [facility] [place] [address] [facility] [place] [address] Referral ID Status Reason Start Date Expiration Date V isits Requested Visits Authorized [id number] Closed Specialty Service Requested 04/20/2024 10/21/2025 1 1 Encounter Details Date Type Department Care Team (Latest Contact Info) Description 04/26/2024 9:17 AM EDT - 04/26/2024 11:59 PM EDT Hospital Encounter Radiology at [facility] [place] [address] Rodriguez Fowler MD [facility] [place] [address] 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 [facility] Department of Vascular and Interventional Radiology Discharge [...] provided with an ID card stating the heavy duty diesel mechanic and type of port you have. Please carry this with you in a safe place. Bandage: There is a sterile dressing over the port site consisting of small gauze with a clear dressing (Tegaderm or [id number] ). This dressing should be left in place for 48 hours. If the clear dressing becomes loose you should place tape over the edges to secure it in place. Note: If you have steri-strips beneath your dressing, simply allow them to fall off. Do not peel them off. There may be Cale-knott (skin glue) also, allow this to flake [...] is during regular office hours, please call [phone]. If it is after regular office hours, or on weekends or holidays, please call [phone] and ask to speak to the Squeezer Operator conciliator for Interventional Radiology. XXX You have received [...] is during regular office hours, please call [phone]. If it is after regular office hours, or on weekends or holidays, please call [phone] and ask to speak to the Squeezer Operator conciliator for Interventional Radiology. XX You have received [...] Sig Dispensed Refills Start Date End Date vwgoxh-cvjogjed-ldxxk se (Zenpep) 40,000-126,000- 168,[address] capsule [...] 2 times daily. 30 tablet 03/08/2024 Insulin [place], Disposable, (BD Ultra-Fine Micro Pen Needle) 32 gauge x 1/4 Needle 1 each by [facility].(Non-Drug; Combo Route) route 2 times daily. 300 [...] daily. citalopram (CeleXA) 10 mg tablet Take 40 mg by mouth daily. tadalafiL (CIALIS) 10 [...] of : 1975 AGE: 48 y.o. Address: [address] [place] [phone] (home) [phone] (work) Mobile: Telephone Information: Referring Provider: Rodriguez Fowler REASON FOR VISIT: Order Questions Answers Where will study be performed? [facility] Radiology [120] To be scheduled Ordering [...] Prior to Visit Medication Sig Dispense Refill atljuw-rtmaszhl-kozqzsj (Zenpep) 40,000-126,000- 168,[address] capsule Take [...] 2 times daily. 30 tablet 0 Insulin [place], Disposable, (BD Ultra-Fine Micro Pen Needle) 32 gauge x 1/4 Needle 1 each by [facility].(Non-Drug; Combo Route) route 2 times daily. 300 [...] 03/25/2024 CT Guided Drain Pancreatic/Peripancreatic Joe Quintero, [facility] RAD CT SCAN IR BIOPSY LIVER PERCUTANEOUS - NON-FOCAL PARENCHYMA 01/07/2023 IR Biopsy Liver Percutaneous 01/07/2023 Juan Wright MD [facility] INTERVENTIONL RAD IR DRAIN CHECK/CHANGE/REMOVE 04/08/2024 IR Drain Check/Change/Remove 04/08/2024 Juan Wright MD [facility] INTERVENTIONL RAD PRO PART REMV PANC, PROX+REMV DUOD+ANAST N/A 03/01/2024 @CHAKA PROCEDURE (WRVU 52.84) performed by Rudi Hernandez MD at [facility] MAIN OR PRO TRANSFER SKIN PEDICLE FLAP N/A 03/01/2024 TRANSFER, INTERMEDIATE, ANY PEDICLE FLAP, ANY LOCATION (WRVU 4.77) performed by Rudi Hernandez MD at [facility] MAIN OR Social History and [...] Date Type Department Care Team (Late st [facility] Info) Description 06/11/2024 9:30 AM EDT Office Visit Hematology/Oncology at [address] [phone] Rodriguez Fowler MD [facility] [place] [address] HEMATOLOGY AND ONCOLOGY [place], [place] [phone] 06/11/2024 10:00 AM EDT Infusion Hematology Oncology at [address] [phone] 06/25/2024 9:30 AM EDT Office Visit Hematology/Oncology at [address] [phone] Rodriguez Fowler MD [facility] [place] [address] HEMATOLOGY AND ONCOLOGY [place], [place] [address] 06/25/2024 10:00 AM EDT Infusion Hematology Oncology at [address] [phone] documented as of this encounter Procedures Procedure [...] chest port implant Indication: Duodenal adenocarcinoma, durable skilled nursing central venous access for chemotherapy Procedure summary: [...] - 199 mg/dL 04/26/2024 9:52 AM EDT [facility] Comment:Supplemental ranges: <140 mg/dL before meals <180 mg/dL all other times of the day. Blood CAPILLARY BLOOD / Unknown 04/26/2024 9:51 AM EDT 04/26/2024 9:52 AM EDT Rodriguez Fowler MD POINT OF CARE TEST O RDERABLES [facility] [place] [address] documented in this encounter Visit Diagnoses Diagnosis [...] mg documented in this encounter Care Teams Ediscovery Project Manager Relationship Specialty Start Date End Date Olga Hoffman, OFF PREMISE SERVICE REPRESENTATIVE [address] [place] [address] PCP - General Family Medicine 10/30/22 documented as of this encounter
--- OUTSIDE RECORDS SUMMARY | 2024-05-31 21:20 | XMS_ITS | Encounter Summary ---
Author Organization [facility] Address [facility] [place] [address] Care Team Providers Care Pattern Layout Worker Name Role Phone Olga Hoffman APRN Primary Care Provider [phone] Encounter Details Date Type Department Care Team (Latest Contact Info) Description 05/07/2024 Travel Social History Tobacco Use Types Packs/Day Years Used Date Smoking Tobacco: Never Smokeless Tobacco: Never Alcohol Use Standard Drinks/Week Comments Not Currently 0 (1 standard drink = 0.6 oz pur e alcohol) [facility] Utilities Answer Date Recorded In the [...] any time in the past 12 m [facility], were you homeless or [...] 9:30 AM EDT Office Visit Hematology/Oncology at [address] [phone] Rodriguez Fowler MD [facility] [place] [address] Sherry Cedillo APRN [address] [place] [address] DR HEMATOLOGY AND ONCOLOGY [place], [place] [phone] 06/11/2024 10:00 AM EDT Infusion Hematology Oncology at [address] [phone] 06/25/2024 9:30 AM EDT Office Visit Hematology/Oncology at [address] [phone] Rodriguez Fowler MD [facility] [place] [address] Sherry Cedillo APRN [address] [place] [address] DR HEMATOLOGY AND ONCOLOGY [place], [place] [phone] 06/25/2024 10:00 AM EDT Infusion Hematology Oncology at [address] [phone] documented as of this encounter Visit Diagnoses Not on filedocumented in this encounter Care Teams Pattern Layout Worker Relationship Specialty Start Date End Date Olga Hoffman APRN [address] [place] [address] PCP - General Family Medicine 10/30/22 documented as of this encounter
--- OUTSIDE RECORDS SUMMARY | 2024-05-31 21:20 | XMS_ITS | Encounter Summary ---
Author Organization [facility] Address [facility] [place] [address] Care Team Providers Care Outdoor Adventure Leader Name Role Phone Olga Hoffman APRN Primary Care Provider [phone] Encounter Details Date Type Department Care Team (Late st Contact Info) Description 05/06/2024 Orders Only Hematology and Oncology at [facility] [place] [phone] Rodriguez Fowler MD [facility] [place] [address] Social History Tobacco Use Types Packs/Day Years Used Date Smoking Tobacco: Never Smokeless Tobacco: Never Alcohol Use Standard Drinks/Week Comments Not Currently 0 (1 standard drink = 0.6 oz pur e alcohol) [facility] Utilities Answer Date Recorded In the past 12 months has [employer], gas, oil, or water [employer] threatened to shut off services in your [...] in the past 12 m [facility], were you homeless or living in [...] 9:30 AM EDT Office Visit Hematology/Oncology at [address] [phone] Rodirguez Fowler MD [facility] [place] [address] Sherry Cedillo APRN [address] [place] [address] DR HEMATOLOGY AND ONCOLOGY [place], [place] [phone] 06/11/2024 10:00 AM EDT Infusion Hematology Oncology at [address] [phone] 06/25/2024 9:30 AM EDT Office Visit Hematology/Oncology at [address] [phone] Rodriguez Fowler MD [facility] [place] [address] Sherry Cedillo APRN [address] [place] [address] DR HEMATOLOGY AND ONCOLOGY [place], [place] [phone] 06/25/2024 10:00 AM EDT Infusion Hematology Oncology at [address] [phone] documented as of this encounter Visit Diagnoses Not on filedocumented in this encounter Care Teams Outdoor Adventure Leader Relationship Specialty Start Date End Date Olga Hoffman APRN [address] [place] [address] PCP - General Family Medicine 10/30/22 documented as of this encounter
--- OUTSIDE RECORDS SUMMARY | 2024-05-31 21:20 | XMS_ITS | Encounter Summary ---
Author Organization [facility] Address [facility] [place] [address] Care Team Providers Care Contract Runner Name Role Phone Olga Hoffman APRN Primary Care Provider [phone] Encounter Details Date Type Department Care Team (Latest Contact Info) Description 05/12/2024 Travel Social History Tobacco Use Types Packs/Day Years Used Date Smoking Tobacco: Never Smokeless Tobacco: Never Alcohol Use Standard Drinks/Week Comments Not Currently 0 (1 standard drink = 0.6 oz pur e alcohol) [facility] Utilities Answer Date Recorded In the [...] any time in the past 12 m [facility], were you homeless or living [...] 9:30 AM EDT Office Visit Hematology/Oncology at [address] [phone] Rodriguez Fowler MD [facility] [place] [address] Sherry Cedillo APRN [address] [place] [address] DR HEMATOLOGY AND ONCOLOGY [place], [place] [phone] 06/11/2024 10:00 AM EDT Infusion Hematology Oncology at [address] [phone] 06/25/2024 9:30 AM EDT Office Visit Hematology/Oncology at [address] [phone] Rodriguez Fowler MD [facility] [place] [address] Sherry Cedillo APRN [address] [place] [address] DR HEMATOLOGY AND ONCOLOGY [place], [place] [id number] 06/25/2024 10:00 AM EDT Infusion Hematology Oncology at [address] [phone] documented as of this encounter Visit Diagnoses Not on filedocumented in this encounter Care Teams Contract Runner Relationship Specialty Start Date End Date Olga Hoffman APRN [address] [place] [address] PCP - General Family Medicine 10/30/22 documented as of this encounter
--- OUTSIDE RECORDS SUMMARY | 2024-05-31 21:20 | XMS_ITS | Encounter Summary ---
Author Organization [facility] Address [facility] [place] [address] Care Team Providers Care Batter Mixer Name Role Phone Dalton Olgaevy Bell APRN Primary Care Provider [phone] [phone] Encounter Details Date Type Department Care Team (Late st Contact Info) Description 05/28/2024 8:00 AM EDT Office Visit Hematology/Oncology at [address] [phone] Rodriguez Fowler MD [facility] [place] [address] Sherry Cedillo HISTOLOGY TECH [address] [place] [address] DR HEMATOLOGY AND ONCOLOGY [place], [place] [phone] Duodenal adenocarcinoma; Drug-induced nausea and vomiting Social History Tobacco Use Types Packs/Day Years Used Date Smoking Tobacco: Never Smokeless Tobacco: Never Alcohol Use Standard Drinks/Week Comments Not Currently 0 (1 standard drink = 0.6 oz pur e alcohol) [facility] Utilities Answer Date Recorded In the past 12 months has [employer], gas, oil, or water company threatened to [...] Mass Index 34.11 05/28/2024 7:59 AM EDT documented in this encounter Progress Notes * Rodriguez Fowler MD - 05/28/2024 8:00 AM EDT Subjective Patient ID: Charles Nick [...] [place]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 6.Obstructive sleep apnea: Uses CPAP with improvement tin daytime alertness and mood 7.CHAN Liver biopsy 01/07/2023 Steatosis with steatohepatitis, stage 2/4 (sn). 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 The history is summarized above. The post-operative course has been complicated by a pancreatic leak and peripancreatic abscess for which she was admitted on 03/24. A drain was placed and he is on antibiotics with levaquin and flagyl. The drain was removed by Dr. Hernandez on 05/20/24. Charles is accompanied to clinic today by his Life Partner Jenelle Reyna. Jenelle is a nurse. He is doing ok, anxious. His BP is high today. Jenelle checks his BP and he has had it checked at his frequent medical visits. It is generally lower. Yesterday, it was about 135/84. He is eating well and has gained a couple of pounds. 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 Mat GM had cancer, unsure of type Review of Systems Objective Physical Exam Vitals reviewed. Constitutional: General: He is not in acute distress. HENT: Head: Normocephalic and atraumatic. Eyes: General: No scleral icterus. Cardiovascular: Rate and Rhythm: Normal rate. Pulmonary: Effort: No respiratory distress. Musculoskeletal: General: No swelling. Skin: General: Skin is warm and dry. Findings: No rash. Neurological: General: No focal deficit present. Mental Status: He is alert. Coordination: Coordination normal. Psychiatric: Mood and Affect: Mood normal. Labs: WBC?ANC - 7., Hgb/Hct - 13/42.1, Plts - 246,000. BUN/Cr - 13/0.9. Glucose - 251, Alb -3.0. Lytes and LFTs o/w unremarkable PGX - No DPYD variant that would impact 5FU dosing Assessment and Plan Charles Nick is 48 yo, seen in f/u of duodenal adenocarcinoma. Form Dr. Hernandez's note [...] on antibiotics with levaquin and flagyl. We met on 04/20/24 and discussed adjuvant therapy. In general adjuvant therapy is recommended for allpatients with LN positive disease, in part extrapolating from the benefits of adjuvant therapy in patients with stage III colon cancer. Standard therapy would consist of 3-6 months of a flouropyrimidine and oxaliplatin containing regimen, ie Folfox or Capox. We talked about Capox vs Folfox. He has baseline neuropathy which is a significant concern. The plan we discussed is for Folfox with reduced dose oxaliplatin. I would plan to stop the oxaliplatin after cycle 6-8 to try to avoid assisted complications of neuropathy. I also had sent a message to Dr. Ayala to be sure he doesn't feel there is a role for radiation in the adjuvant setting and he does not. The post-op course has been complicated by a pancreatic leak/abscess. The drain was removed on 05/20/24. He is doing well with no fevers or chills. He is feeling well and we plan to begin therapy today. He and Jenelle did not have further questions. We will proceed with treatment and see him in two weeks. documented in this encounter Plan of Treatment Upcoming Encounters Date Type Department Care Team (Late st Contact Info) Description 06/11/2024 9:30 AM EDT Office Visit Hematology/Oncology at [address] [phone] Rodriguez Fowler MD [facility] [place] [address] Sherry Cedillo APRN [address] [place] [address] DR HEMATOLOGY [place] [address] 06/11/2024 10:00 AM EDT Infusion Hematology Oncology at [address] [phone] 06/25/2024 9:30 AM EDT Office Visit Hematology/Oncology at [address] [phone] Rodriguez Fowler MD [facility] [place] [address] Sherry Cedillo APRN [address] [place] [address] DR HEMATOLOGY AND ONCOLOGY [place], [place] [id number] 06/25/2024 10:00 AM EDT Infusion Hematology Oncology at [address] [phone] documented as of this encounter Visit Diagnoses Diagnosis Duodenal adenocarcinoma Malignant neoplasm of duodenum Drug-induced nausea and vomiting Nausea with vomiting documented in this encounter Care Teams Batter Mixer Relationship Specialty Start Date End Date Olga Hoffman APRN [address] [place] [address] PCP - General Family Medicine 10/30/22 documented as of this encounter
--- OUTSIDE RECORDS SUMMARY | 2024-05-31 21:20 | XMS_ITS | Encounter Summary ---
Author Organization [facility] Address [facility] [place] [address] Care Team Providers Care Front Desk Monitor Name Role Phone Dalton Olgaevy Bell APRN Primary Care Provider [phone] Encounter Details Date Type Department Care Team (Late st Contact Info) Description 05/07/2024 10:30 AM EDT Office Visit Hematology/Oncology at [address] [phone] Rodriguez Fowler MD [facility] [place] [address] Sherry Cedillo FINANCIAL COMPLIANCE OFFICER [address] [place] [address] DR HEMATOLOGY AND ONCOLOGY [place], [place] [phone] Duodenal adenocarcinoma; H/O Whipple procedure Social History [...] any time in the past 12 m [facility], were you homeless or living in a chcf (including now)? No 03/25/2024 DH IPV Inpatient [...] this encounter Progress Notes * Sherry Cedillo, FINANCIAL COMPLIANCE OFFICER - 05/07/2024 10:30 AM EDT Subjective Patient [facility] 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 6.Obstructive sleep apnea: [...] symptoms in his fingertips. Soc Hx:Lives in [place], [place] Tob - Never Etoh - Rare [...] after cycle 6-8 to try to avoid chcf complications of neuropathy. Dr. Fowler also plans [...] 9:30 AM EDT Office Visit Hematology/Oncology at [address] [phone] Rodriguez Fowler MD [facility] [place] [address] Sherry Cedillo [address] HEMATOLOGY AND ONCOLOGY [place], [place] [phone] 06/11/2024 10:00 AM EDT Infusion Hematology Oncology at [address] [phone] 06/25/2024 9:30 AM EDT Office Visit Hematology/Oncology at [address] [phone] Rodriguez Fowler MD [facility] [place] [address] [address] HEMATOLOGY AND ONCOLOGY [place], [place] [address] 06/25/2024 10:00 AM EDT Infusion Hematology Oncology at [address] [phone] Scheduled Orders Name Type Priority Associated Diagnoses Orde r Schedule CBC (with Diff) Lab Routine Duodenal adenocarcinoma Every 2 Weeks for 12 Occurrences starting 05/06/2024 until 05/06/2025 documented as of this encounter Visit Diagnoses Diagnosis Duodenal adenocarcinoma 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
--- OUTSIDE RECORDS SUMMARY | 2024-05-31 21:20 | XMS_ITS | Encounter Summary ---
Author Organization [facility] Address [facility] [place] [address] Care Team Providers Care Triple Valve Mechanic Name Role Phone Olga Hoffman APRN Primary Care Provider [phone] [phone] Reason for Visit * Reason Comments Chemotherapy Cycle 1, Day 1 - Fol padilla * Treatment/Therapy Plan Authorization (Routine) - Authorized Specialty Diagnoses / Procedures Referred By Janak t Referred To Contact Diagnoses Duodenal adenocarcinoma Procedures TC PALONOSETRON HCL, 25MCG, INJECTION (ALOXI) TC OXALIPLATIN, 0.5MG, INJECTION (ELOXATIN) TC LEUCOVORIN CALCIUM, 50MG, INJECTION (WELLCOVORIN) TC FLOUROURACIL, 500MG Rodriguez Fowler MD [facility] [place] [address] Stj Hem Onc Infusion [address] [place] [id number] Referral ID Status Reason Start Date Expiration Date V isits Requested Visits Authorized [id number] Authorized 04/20/2024 04/20/2025 1 101 Encounter Details Date Type Department Care Team (Late st Contact Info) Description 05/28/2024 8:30 AM EDT Infusion Hematology Oncology at [address] [phone] Duodenal adenocarcinoma Social History Tobacco Use Types Packs/Day Years Used Date Smoking Tobacco: Never Smokeless Tobacco: Never Alcohol Use Standard Drinks/Week Comments Not Currently 0 (1 standard drink = 0.6 oz pur e alcohol) [facility] Utilities Answer Date Recorded In the [...] any time in the past 12 m [facility], were you homeless or [...] as of this encounter Progress Notes * Shayy Moya RN - 05/28/2024 8:30 AM EDT INFUSION THERAPY ADMINISTRATION NOTES DIAGNOSIS: Duodenal Adenocarcinoma CYCLE #: Cycle 1, Day 1 - Folfox REASON FOR VISIT: To receive chemotherapy. SUBJECTIVE: Charles offers no complaints. He has a plate put in worker, Claritza. OBJECTIVE: Seen by provider. Ready to treat. LAB DATA: WBC - 7.49, H/H - 13.0/42.1, Plt Ct - 246, ANC - 5.64, Lytes wnl, BUN/Cr - 13/0.9. IV ACCESS: Port accessed off site. Flushes readily with brisk blood return. Pre administration: Chemotherapy orders independently verified for drug name, route, and dosage per patient's height, weight and BSA by Shayy Moya, GRETCHEN and Staff Pharmacist(s0. REACTIONS (DESCRIPTION, TIME, INTERVENTION AND EFFECTIVENESS) none ASSESSMENT: Charles was awake, alert and tolerated treatment well. Disconnect pump at [facility] on Wednesday 05/30 at 0930. I called and spoke to SherryMarybeth Silvais may be interested in learning how to do the disconnect. Pt. chemo teaching instructions included: During clinic hours (8am-5pm Friday-Friday): pt. can call [phone] with questions or concerns. After clinic hours (5pm-8am Friday-Friday and weekends) pt can call [phone] and ask for the nursery technician/oncologist immigration lawyer. hCarles Nick verbalized understanding of potential chemotherapy side effects and home care including but not limited to- handwashing to prevent infection, signs and symptoms of low blood counts (fever, fatigue, bleeding), to call with a fever of 100.4 or greater, any significant constipation/diarrhea, importance of nutrition and fluid intake (drinking at least 32-64 ounces of non-caffeinated beverages/day), mouth care. Charles Nick verbalized understanding of how to take prescription medications given for home use after chemotherapy. He will take oral compazine BID for several days per Dr. Fowler recommendation. PLAN: Return to clinic in 2 weeks for consideration of cycle 2. documented in this encounter Plan of Treatment Upcoming Encounters Date Type Department Care Team (Late st Contact Info) Description 06/11/2024 9:30 AM EDT Office Visit Hematology/Oncology at [address] [phone] Rodriguez Fowler MD [facility] [place] [address] [address] HEMATOLOGY [place] [address] 06/11/2024 10:00 AM EDT Infusion Hematology Oncology at [address] [phone] 06/25/2024 9:30 AM EDT Office Visit Hematology/Oncology at [address] [phone] Rodriguez Fowler MD [facility] [place] [address] [address] H[place]ATOLOGY [place] [address] 06/25/2024 10:00 AM EDT Infusion Hematology Oncology at [address] [phone] documented as of this encounter Visit Diagnoses Diagnosis Duodenal adenocarcinoma Malignant neoplasm of duodenum documented in this encounter Administered Medications Inactive Administered Medications - up to 3 most recent administrations Medication Order MAR Action Action Date Dose Rate Site dexAMETHasone (Decadron) tablet 10 mg 10 mg, Oral, ONCE, 1 dose, On Fri05/28/24 at 0930, Administer prior to chemotherapy, Routine Given 05/28/2024 8:50 AM EDT 10 mg fluorouraciL (ADRUCIL) chemo injection 992 mg 992 mg (400 mg/m2/dose ? 2.48 m2 Treatment Plan BSA from Recorded weight), Intravenous, ONCE, 1 dose, On Fri05/28/24 at 1000, Administer over 5 Minutes, Warning Vesicant/Irritant Medication Given 05/28/2024 11:21 AM EDT 992 mg 238.1 mL/hr fluorouraciL (AdruciL) in sodium chloride 0.9% 138 mL infusion (46 Hour - For Home Use) 5,952 mg 5,952 mg (2,400 mg/m2/dose ? 2.48 m2 Treatment Plan BSA from Recorded weight), Intravenous, ONCE, 1 dose, On Fri05/28/24 at 1130, Administer over 46 Hours, Warning Vesicant/Irritant Medication To be infused via an ambulatory infusion CADD Benitez pump continuously IV at 3 mL/hr for 46 hours. Pump contains a 46 hour supply and provides a daily dose of 1,200 mg/m2/day = 2,400 mg/m2 IV over 46 hours. Given 05/28/2024 11:13 AM EDT 5,952 mg 3 mL/hr leucovorin (Wellcovorin) 350 mg in dextrose 5% 85 mL infusion 350 mg, Intravenous, ONCE, 1 dose, On Fri05/28/24 at 1000, Administer over 85 Minutes, May Y-site with OXALIplatin Do not administer at a rate faster than 160 milligrams/minute. New Bag 05/28/2024 9:33 AM EDT 350 mg 60 mL/hr OXALIplatin (Eloxatin) 150 mg in dextrose 5% 280 mL infusion 150 mg (rounded from 158.1 mg = 63.75 mg/m2/dose ? 2.48 m2 Treatment Plan BSA from Recorded weight), Intravenous, ONCE, 1 dose, On Fri05/28/24 at 1000, Administer over 85 Minutes, Compatible with dextrose-containing solution only. Warning Vesicant/Irritant Medication New Bag 05/28/2024 9:30 AM EDT 150 mg 197.6 mL/hr palonosetron (Aloxi) (0.05 mg/mL) injection 0.25 mg 0.25 mg, Intravenous, ONCE, 1 dose, On Fri05/28/24 at 0900, Administer over 30 seconds. Administer prior to chemotherapy, Routine Given 05/28/2024 8:53 AM EDT 0.25 mg documented in this encounter Care Teams Triple Valve Mechanic Relationship Specialty Start Date End Date Olga Hoffman APRN [address] [place] [address] PCP - General Family Medicine 10/30/22 documented as of this encounter
--- OUTSIDE RECORDS SUMMARY | 2024-05-31 21:20 | XMS_ITS | Encounter Summary ---
Author Organization [facility] Address [facility] [place] [address] Care Team Providers Care Pacu Rn Name Role Phone Olga Hoffman APRN Primary Care Provider [phone] Encounter Details Date Type Department Care Team (Latest Contact Info) Description 05/21/2024 Travel Social History Tobacco Use Types Packs/Day Years Used Date Smoking Tobacco: Never Smokeless Tobacco: Never Alcohol Use Standard Drinks/Week Comments Not Currently 0 (1 standard drink = 0.6 oz pur e alcohol) [facility] Utilities Answer Date Recorded In the [...] in the past 12 m [facility], were you homeless or living in [...] AM EDT Office Visit Hematology/Oncology at [address] [phone] Rodriguez Fowler MD [facility] [place] [address] Sherry Cedillo APRN [address] [place] [address] DR HEMATOLOGY AND ONCOLOGY [place], [place] [phone] 06/11/2024 10:00 AM EDT Infusion Hematology Oncology at [address] [phone] 06/25/2024 9:30 AM EDT Office Visit Hematology/Oncology at [address] [phone] Rodriguez Fowler MD [facility] [place] [address] Sherry Cedillo APRN [address] [place] [address] DR HEMATOLOGY AND ONCOLOGY [place], [place] [phone] 06/25/2024 10:00 AM EDT Infusion Hematology Oncology at [address] [phone] documented as of this encounter Visit Diagnoses Not on filedocumented in this encounter Care Teams Pacu Rn Relationship Specialty Start Date End Date Olga Hoffman APRN [address] [place] [address] PCP - General Family Medicine 10/30/22 documented as of this encounter
--- OUTSIDE RECORDS SUMMARY | 2024-05-31 21:20 | XMS_ITS | Encounter Summary ---
Author Organization [facility] Address [facility] [place] [address] Care Team Providers Care Television Repairman Name Role Phone Olga Hoffman APRN Primary Care Provider [phone] Encounter Details Date Type Department Care Team (Latest Contact Info) Description 05/20/2024 Travel Social History Tobacco Use Types Packs/Day Years Used Date Smoking Tobacco: Never Smokeless Tobacco: Never Alcohol Use Standard Drinks/Week Comments Not Currently 0 (1 standard drink = 0.6 oz pur e alcohol) [facility] Utilities Answer Date Recorded In [...] 9:30 AM EDT Office Visit Hematology/Oncology at [address] [phone] Rodriguez Fowler MD [facility] [place] [place] [address] Sherry Cedillo APRN [address] [place] [address] DR HEMATOLOGY AND ONCOLOGY [place], [place] [phone] 06/11/2024 10:00 AM EDT Infusion Hematology Oncology at [address] [phone] 06/25/2024 9:30 AM EDT Office Visit Hematology/Oncology at [address] [phone] Rodriguez Fowler MD [facility] [place] [place] [address] Sherry Cedillo APRN [address] [place] [address] DR HEMATOLOGY AND ONCOLOGY [place], [place] [phone] 06/25/2024 10:00 AM EDT Infusion Hematology Oncology at [address] [phone] documented as of this encounter Visit Diagnoses Not on filedocumented in this encounter Care Teams Television Repairman Relationship Specialty Start Date End Date Olga Hoffman APRN [address] [place] [address] PCP - General Family Medicine 10/30/22 documented as of this encounter
--- OUTSIDE RECORDS SUMMARY | 2024-05-31 21:20 | XMS_ITS | Encounter Summary ---
[place] [address] Care Team Providers Care Slip Cover Seamstress Name Role Phone Olga Hoffman APRN Primary Care Provider [phone] [phone] Reason for Referral * Consultation (Routine) - Authorized Specialty Diagnoses / Procedures Referred By Janak holland Referred To Contact Diagnoses Type 2 diabetes mellitus with diabetic polyneuropathy, with long-term current use of insulin YaakovozNighat patel MD [facility] [place] [address] Astrid Whaley, hospital housekeeper ID Status Reason Start Date Expiration Date Visits Requested Visits Authorized [id number] Authorized Consult, Test & Treat 05/21/2024 05/21/2025 1 1 Reason for Visit * Consultation (Routine) - Authorized Specialty Diagnoses / Procedures Referred By Janak holland Referred To Contact Endocrinology Diagnoses Type 2 diabetes mellitus without complications Olga Hoffman APRN [address] [place] [address] [facility] Endocrinology [address] [place] [phone] Referral ID Status Reason Start Date Expiration Date Visits Requested Visits Authorized [id number] Authorized Consult, Test & Treat PCP Updated and/or Approved 02/23/2024 02/22/2025 12 12 Encounter Details Date Type Department Care Team (Late st Contact Info) Description 05/21/2024 9:00 AM EDT Office Visit Endocrinology at [facility] [place] [id number] Nighat López MD [facility] [place] [id number] Type 2 diabetes mellitus with diabetic polyneuropathy, with long-term current use of insulin; Vitamin D deficiency Social History Tobacco Use Types Packs/Day Years Used Date Smoking Tobacco: Never Smokeless Tobacco: Never Alcohol Use Standard Drinks/Week Comments Not Currently 0 (1 standard drink = 0.6 oz pur e alcohol) [facility] Utilities Answer Date Recorded In the [...] further management of diabetes. He is from [place] originally. He lost 60 lbs since Whipple [...] B/l foot wounds, follows with podiatry at [facility] Sensory: Neuropathy Autonomic: None Cardiac: None Prevention: [...] by mouthonce a week. 4 capsule 3 uuyqxv-wwelipkd-nbxdnge (Zenpep) 40,000-126,000- 168,[address] capsule Take [...] 2 times daily. 30 tablet 0 Insulin Norman, Disposable, (BD Ultra-Fine Micro Pen Needle) 32 gauge x 1/4 Needle 1 each by [facility].(Non-Drug; Combo Route) route 2 times [...] (L): Data is abnormally low Assessment: Charles Nikc is a 48 y.o. male with PMH [...] LDL, C peptide, glucose - Refer to music educator - emergency Baqsimi was provided - [...] patient. Discussed with Dr. Heidi López PGY-5 [facility] Endocrinology * Brenda Vasquez MD - 05/21/2024 [...] Date Type Department Care Team (Late st [facility]) Description 06/11/2024 9:30 AM EDT Office Visit Hematology/Oncology at [address] [phone] Rodriguez Fowler MD [facility] [place] [address] [address] HEMATOLOGY AND ONCOLOGY [place], [place] [id number] 06/11/2024 10:00 AM EDT Infusion Hematology Oncology at [address] [phone] 06/25/2024 9:30 AM EDT Office Visit Hematology/Oncology at [address] [phone] Rodriguez Fowler MD [facility] [place] [address] [address] HEMATOLOGY AND ONCOLOGY [place], [place] [address] 06/25/2024 10:00 AM EDT Infusion Hematology Oncology at [address] [phone] Scheduled Referrals Name Type Priority Associated Diagnoses Orde r Schedule Referral to Diabetes Education Outpatient Referral Routine Type 2 diabetes mellitus with diabetic polyneuropathy, with long-term current use of insulin Ordered: 05/21/2024 documented as of this encounter Results * (ABNORMAL) Glucose Non-fasting (05/21/2024 10:13 AM EDT) Glucose 277(H) 65 - 99 mg/dL 05/21/2024 11:09 AM EDT [facility] Comment: Fasting Glucose Interpretive Criteria: Normal: 65-99 mg/dL ?? Prediabetes: 100-125 mg/dL ?? Consistent with Diabetes Mellitus: > or = 126 mg/dL ?? Classification and Diagnosis of Diabetes: Standards of Care in Diabetes - 2022. Diabetes Care 2022; 46:S19. Fasting is defined as no caloric intake for at least 8 hours. Fasting Status Yes 05/21/2024 11:09 AM EDT [facility] Blood VENOUS BLOOD SPECIMEN / Unknown Venipuncture / Unknown 05/21/2024 10:13 AM EDT 05/21/2024 10:13 AM EDT Brenda Vasquez MD CHEMISTRY ORDERABLES Performing Organization Address City/[facility]/ZIP Co de Phone Number [facility] [place] [address] * C-peptide (05/21/2024 10:13 AM EDT) Pathologist [facility] C-Peptide 3.8 1.1 - 4.4 ng/ml 05/21/2024 11:09 AM EDT [facility] Comment:Reference intervals for C-peptide (1.1 - 4.4 ng/mL) are only applicable to specimens collected fasting. Results from nonfasted specimens must be placed into clinical context. Fasting Status Yes 05/21/2024 11:09 AM EDT [facility] Blood VENOUS BLOOD SPECIMEN / Unknown Venipuncture / Unknown 05/21/2024 10:13 AM EDT 05/21/2024 10:13 AM EDT Brenda Vasquez MD CHEMISTRY ORDERABLES Performing Organization Address City/[facility]/ZIP Co de Phone Number [facility] [place] [address] * LDL Cholesterol, Direct (05/21/2024 10:13 AM EDT) LDL Cholesterol, Direct 54 mg/dL 05/21/2024 11:09 AM EDT [facility] Comment: Desirable: <100 mg/dL Above [...] AM EDT Brenda Vasquez MD CHEMISTRY ORDERABLES [facility] [place] [address] * (ABNORMAL) Hemoglobin A1c (05/21/2024 10:13 AM EDT) Hemoglobin A1c 8.1(H) 4.3 - 5.6 % 05/21/2024 10:51 AM EDT [facility] Comment: Per ADA guidelines, without [...] Glucose 186 mg/dL 05/21/2024 10:51 AM EDT [facility] Blood VENOUS BLOOD SPECIMEN / Unknown Venipuncture / Unknown 05/21/2024 10:13 AM EDT 05/21/2024 10:13 AM EDT Brenda aVsquez MD CHEMISTRY ORDERABLES [facility] [place] [address] documented in this encounter Visit Diagnoses Diagnosis Type 2 diabetes mellitus with diabetic polyneuropathy, with long-term current use of insulin Vitamin D deficiency Unspecified vitamin D deficiency documented in this encounter Care Teams Slip Cover Seamstress Relationship Specialty Start Date End Date Olga Hoffman APRN [address] [place] [address] PCP - General Family Medicine 10/30/22 documented as of this encounter
--- OUTSIDE RECORDS SUMMARY | 2024-05-31 21:20 | XMS_ITS | Encounter Summary ---
Author Organization [facility] [place] [address] Care Team Providers Care Spar Machine Operator Helper Name Role Phone Olga Hoffman APRN Primary Care Provider [phone] Encounter Details Date Type Department Care Team (Latest Contact Info) Description 05/28/2024 9:30 AM EDT Clinical Support Hematology/Oncolog y at [address] [phone] Leah Rose, RD [facility] DR H[place]AT[place] [address] Duodenal adenocarcinoma Social History Tobacco Use Types Packs/Day Years Used Date Smoking Tobacco: Never Smokeless Tobacco: Never Alcohol Use Standard Drinks/Week Comments Not Currently 0 (1 standard drink = 0.6 oz pur e alcohol) [facility] Utilities Answer Date Recorded In the past 12 months has [employer], gas, oil, or water [email or web address] threatened to shut off services in your [...] time in the past 12 m [facility], were you homeless or living in a [...] Progress Notes * Leah Rose, RD - 05/28/2024 9:30 AM EDT Nutrition Note Spoke with Charles and his partner Jenelle in treatment today. 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 Post-operative course was complicated by pancreatic leak and peripancreatic abscess for which she was admitted on 03/24/24. His drain was removed on 05/20/24. Patient reports he has a good appetite and is eating well. Patient was seen by endocrinology at last week. Long acting insulin increased from 20 to 30 units/day and meal associated Humalog added. BG was 251 on labs today. Patient with 3 wounds over right sole, 1 wound over left sole, no signs of infection per Endocrinology note. Increased to ZenPep 40: 4 per meal and 2 per snack which has helped firm up BM's. Wt Readings from Last 10 Encounters: 05/28/24 120.6 kg (265 lb 12.8 oz) 05/21/24 119.8 kg (264 lb 3.2 oz) 05/20/24 120.2 kg (264 lb 14.4 oz) 05/12/24 124.5 kg (274 lb 6.4 oz) 05/07/24 119.8 kg (264 lb 3.2 oz) 05/05/24 120.2 kg (265 lb) 04/21/24 119.3 kg (263 lb) 04/20/24 116.9 kg (257 lb 11.5 oz) 04/08/24 115.2 kg (254 lb) 04/08/24 115.5 kg (254 lb 11.2 oz) 03/24/2024 Oncology Vitals Weight (lb) 256 lb 12.8 oz 03/07/24 (!) 138.6 kg (305 lb 8.9 oz) BMI 33.9 Weight stable 265# 04/21-05/28 (weight on 05/12 appears inaccurate) Weight varied 254-265# 03/17-04/21 Lost 49# following Whipple procedure 03/07-03/24 (15.8% body weight) - severe Diet: Eating well, 3 meals/day plus snacks. Doing well with carb counting at home, but finds this difficult to do when out at restaurants, etc. Labs on 05/28: WBC/ANC - 7., Hgb/Hct - 13/42.1, Plts - 246,000. BUN/Cr - 13/0.9. Glucose - 251, Alb - 3.0. Lytes and LFTs o/w unremarkable A1C 8.9% on 03/02/24 Labs on 05/05: Vit D-25-OH 12L Medications: Compazine prn, Long acting Semglee 30 units/day (increased), SS Humalog TID before meals (new) ICR 1:10g (3 units if small meal, 4 units if regular size meal, 6 units if large meal) , ZenPep 40 (3 per meal, 1 per snack), Tyelnol prn, Zofran-ODT prn, Omeprazole, Kcl, Mag-Ox, Amlodipine,Naltrexone, Citalopram, Tadalafil, Gabapentin, Lasix Nutrition Problem: Altered GI function and involuntary weight loss related to s/p Whipple procedure with bilroth II asevidenced by need for ZenPep 40: 3 per meal and 1 per snack and 49# loss following Whipple procedure 03/07-03/24 (15.8% body weight) - severe Recommendations: Continue with carb controlled diet, now dosing humalog with meals using 1:10g (3 units if small meal, 4 units if regular size meal, 6 units if large meal) per Endocrinology. ZenPep 40: 4 per meal and 2 per snack which has helped firm up BM's. Will f/u on 06/11 documented in this encounter Plan of Treatment Upcoming Encounters Date Type Department Care Team (Late st Contact Info) Description 06/11/2024 9:30 AM EDT Office Visit Hematology/Oncology at [address] [phone] Rodriguez Fowler MD [facility] [place] [address] Sherry Cedillo APRN [address] [place] [address] DR HEMATOLOGY AND ONCOLOGY [place], [place] [address] 06/11/2024 10:00 AM EDT Infusion Hematology Oncology at [address] [phone] 06/25/2024 9:30 AM EDT Office Visit Hematology/Oncology at [address] [phone] Rodriguez Fowler MD [facility] [place] [address] Sherry Cedillo APRN [address] [place] [address] DR HEMATOLOGY AND ONCOLOGY [place], [place] [id number] 06/25/2024 10:00 AM EDT Infusion Hematology Oncology at [address] [phone] documented as of this encounter Visit Diagnoses Diagnosis Duodenal adenocarcinoma Malignant neoplasm of duodenum documented in this encounter Care Teams Spar Machine Operator Helper Relationship Specialty Start Date End Date Olga Hoffman APRN [address] [place] [address] PCP - General Family Medicine 10/30/22 documented as of this encounter
--- OUTSIDE RECORDS SUMMARY | 2024-05-31 21:20 | XMS_ITS | Encounter Summary ---
Author Organization [facility] Address [facility] [place] [address] Care Team Providers Care Softball Winder Name Role Phone Olga Hoffman APRN Primary Care Provider [phone] Encounter Details Date Type Department Care Team (Latest Contact Info) Description 05/05/2024 Travel Social History Tobacco Use Types Packs/Day Years Used Date Smoking Tobacco: Never Smokeless Tobacco: Never Alcohol Use Standard Drinks/Week Comments Not Currently 0 (1 standard drink = 0.6 oz pur e alcohol) [facility] Utilities Answer Date Recorded In the [...] 9:30 AM EDT Office Visit Hematology/Oncology at [address] [phone] Rodriguez Fowler MD [facility] [place] [address] Sherry Cedillo APRN [address] [place] [address] DR HEMATOLOGY AND ONCOLOGY [place], [place] [id number] 06/11/2024 10:00 AM EDT Infusion Hematology Oncology at [address] [phone] 06/25/2024 9:30 AM EDT Office Visit Hematology/Oncology at [address] [phone] Rodriguez Fowler MD [facility] [place] [address] Sherry Cedillo APRN [address] [place] [address] DR HEMATOLOGY AND ONCOLOGY [place], [place] [id number] 06/25/2024 10:00 AM EDT Infusion Hematology Oncology at [address] [phone] documented as of this encounter Visit Diagnoses Not on filedocumented in this encounter Care Teams Softball Winder Relationship Specialty Start Date End Date Olga Hoffman APRN [address] [place] [address] PCP - General Family Medicine 10/30/22 documented as of this encounter
--- OUTSIDE RECORDS SUMMARY | 2024-05-31 21:20 | XMS_ITS | Encounter Summary ---
Author Organization [facility] Address [facility] [place] [address] Care Team Providers Care Program Officer Name Role Phone Olga Hoffman APRN Primary Care Provider [phone] Encounter Details Date Type Department Care Team (Late st Contact Info) Description 05/06/2024 Orders Only Hematology and Oncology at [facility] [place] [phone] Rodriguez Fowler MD [facility] [place] [address] Social History Tobacco Use Types Packs/Day Years Used Date Smoking Tobacco: Never Smokeless Tobacco: Never Alcohol Use Standard Drinks/Week Comments Not Currently 0 (1 standard drink = 0.6 oz pur e alcohol) [facility] Utilities Answer Date Recorded In the past 12 months has [employer], gas, oil, or water [employer] threatened to shut off services in your [...] 9:30 AM EDT Office Visit Hematology/Oncology at [address] [phone] Rodriguez Fowler MD [facility] [place] [address] Sherry Cedillo APRN [address] [place] [address] DR HEMATOLOGY AND ONCOLOGY [place], [place] [phone] 06/11/2024 10:00 AM EDT Infusion Hematology Oncology at [address] [phone] 06/25/2024 9:30 AM EDT Office Visit Hematology/Oncology at [address] [phone] Rodriguez Fowler MD [facility] [place] [place] [address] Sherry Cedillo APRN [address] [place] [address] DR HEMATOLOGY AND ONCOLOGY [place], [place] [id number] 06/25/2024 10:00 AM EDT Infusion Hematology Oncology at [address] [phone] documented as of this encounter Visit Diagnoses Not on filedocumented in this encounter Care Teams Program Officer Relationship Specialty Start Date End Date Olga Hoffman APRN [address] [place] [address] PCP - General Family Medicine 10/30/22 documented as of this encounter
--- OUTSIDE RECORDS SUMMARY | 2024-05-31 21:20 | XMS_ITS | Encounter Summary ---
Author Organization [facility] Address [facility] [place] [address] Care Team Providers Care Drug Abuse Program Coordinator Name Role Phone Olga Hoffman APRN Primary Care Provider [phone] Encounter Details Date Type Department Care Team (Late st Contact Info) Description 05/25/2024 Orders Only Hematology and Oncology at [facility] [place] [phone] Rodriguez Fowler MD [facility] [place] [address] Social History Tobacco Use Types Packs/Day Years Used Date Smoking Tobacco: Never Smokeless Tobacco: Never Alcohol Use Standard Drinks/Week Comments Not Currently 0 (1 standard drink = 0.6 oz pur e alcohol) [facility] Utilities Answer Date Recorded In the past 12 months has [employer], gas, oil, or water [employer] threatened to shut off services in your [...] 9:30 AM EDT Office Visit Hematology/Oncology at [address] [phone] Rodriguez Fowler MD [facility] [place] [address] Sherry Cedillo APRN [address] [place] [address] DR HEMATOLOGY AND ONCOLOGY [place], [place] [phone] 06/11/2024 10:00 AM EDT Infusion Hematology Oncology at [address] [phone] 06/25/2024 9:30 AM EDT Office Visit Hematology/Oncology at [address] [phone] Rodriguez Fowler MD [facility] [place] [address] Sherry Cedillo APRN [address] [place] [address] DR HEMATOLOGY AND ONCOLOGY [place], [place] [id number] 06/25/2024 10:00 AM EDT Infusion Hematology Oncology at [address] [phone] documented as of this encounter Visit Diagnoses Not on filedocumented in this encounter Care Teams Drug Abuse Program Coordinator Relationship Specialty Start Date End Date Olga Hoffman APRN [address] [place] [address] PCP - General Family Medicine 10/30/22 documented as of this encounter
--- OUTSIDE RECORDS SUMMARY | 2024-05-31 21:20 | XMS_ITS | Encounter Summary ---
[place] [address] Care Team Providers Care On Awake Counselor Name Role Phone Olga Hoffman APRN Primary Care Provider [phone] [phone] Encounter Details Date Type Department Care Team (Latest Contact Info) Description 05/21/2024 10:25 AM EDT Laboratory Appointment Lab [address] [place] [phone] Type 2 diabetes mellitus with diabetic polyneuropathy, with long-term current use of insulin Social History Tobacco Use Types Packs/Day Years Used Date Smoking Tobacco: Never Smokeless Tobacco: Never Alcohol Use Standard Drinks/Week Comments Not Currently 0 (1 standard drink = 0.6 oz pur e alcohol) [facility] Utilities Answer Date Recorded In the [...] time in the past 12 m [facility], were you homeless or living in a [...] 9:30 AM EDT Office Visit Hematology/Oncology at [address] [phone] Rodriguez Fowler MD [facility] [place] [address] Sherry Cedillo APRN [address] [place] [address] DR HEMATOLOGY AND ONCOLOGY [place], [place] [id number] 06/11/2024 10:00 AM EDT Infusion Hematology Oncology at [address] [phone] 06/25/2024 9:30 AM EDT Office Visit Hematology/Oncology at [address] [phone] Rodriguez Fowler MD [facility] [place] [address] Sherry Cedillo APRN [address] [place] [address] DR HEMATOLOGY [place] [address] 06/25/2024 10:00 AM EDT Infusion Hematology Oncology at [address] [phone] documented as of this encounter Procedures Procedure [...] - 99 mg/dL 05/21/2024 11:[address] [facility] Comment: Fasting Glucose Interpretive Criteria: Normal: 65-99 mg/dL ?? Prediabetes: 100-125 mg/dL ?? Consistent with Diabetes Mellitus: > or = 126 mg/dL ?? Classification and Diagnosis of Diabetes: Standards of Care in Diabetes - 2022. Diabetes Care 2022; 46:S19. Fasting is defined as no caloric intake for at least 8 hours. Fasting Status Yes 05/21/2024 11:[address] [facility] Blood VENOUS BLOOD SPECIMEN / Unknown Venipuncture / Unknown 05/21/2024 10:13 AM EDT 05/21/2024 10:13 AM EDT Rosaline Gordon MD CHEMISTRY ORDERABLES Performing Organization Address [facility] de Phone Number [facility] [place] [address] * C-peptide (05/21/2024 10:13 AM EDT) C-Peptide 3.8 1.1 - 4.4 ng/ml 05/21/2024 11:[address] [facility] Comment:Reference intervals for C-peptide (1.1 - 4.4 ng/mL) are only applicable to specimens collected fasting. Results from nonfasted specimens must be placed into clinical context. Fasting Status Yes 05/21/2024 11:[address] [facility] Blood VENOUS BLOOD SPECIMEN / Unknown Venipuncture / Unknown 05/21/2024 10:13 AM EDT 05/21/2024 10:13 AM EDT Rosaline Gordon MD CHEMISTRY ORDERABLES Performing Organization Address [facility] Co de Phone Number [facility] [place] [address] * LDL Cholesterol, Direct (05/21/2024 10:13 AM EDT) LDL Cholesterol, Direct 54 mg/dL 05/21/2024 11:[address] [facility] Comment: Desirable: <100 mg/dL Above [...] AM EDT Rosaline Gordon MD CHEMISTRY ORDERABLES [facility] [place] [place] [address] * (ABNORMAL) Hemoglobin A1c (05/21/2024 10:13 AM EDT) Hemoglobin A1c 8.1(H) 4.3 - 5.6 % 05/21/2024 10:[address] [facility] Comment: Per ADA guidelines, without [...] red blood cell turnover may not be senior sales representative of glycemic control. Reference Interval: 4.3 - 5.6% 5.7 - 6.4%: Consistent with prediabetes >=6.5%: Consistent with diagnosis of diabetes mellitus Estimated Average Glucose 186 mg/dL 05/21/2024 10:[address] [facility] Blood VENOUS BLOOD SPECIMEN / Unknown Venipuncture / Unknown 05/21/2024 10:13 AM EDT 05/21/2024 10:13 AM EDT Rosaline Gordon MD CHEMISTRY ORDERABLES [facility] [place] [address] documented in this encounter Visit Diagnoses Diagnosis Type 2 diabetes mellitus with diabetic polyneuropathy, with long-term current use of insulin documented in this encounter Care Teams On Awake Counselor Relationship Specialty Start Date End Date Olga Hoffman APRN [address] [place] [address] PCP - General Family Medicine 10/30/22 documented as of this encounter
--- OUTSIDE RECORDS SUMMARY | 2024-05-31 21:20 | XMS_ITS | Encounter Summary ---
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; Obesity due to excess calories with serious comorbidity, unspecified classification Social History Tobacco Use Types Packs/Day Years Used Date Smoking Tobacco: Never Smokeless Tobacco: Never Alcohol Use Standard Drinks/Week Comments Not Currently 0 (1 standard drink = 0.6 oz pur e alcohol) [facility] Utilities Answer Date Recorded In the past 12 months has th e electric, gas, oil, or water [employer] threatened to shut off services in [...] 9:30 AM EDT Office Visit Hematology/Oncology at [address] [phone] Rodriguez Fowler MD [facility] [place] [address] Sherry Cedillo APRN [address] [place] [address] DR HEMATOLOGY AND ONCOLOGY [place], [place] [id number] 06/11/2024 10:00 AM EDT Infusion Hematology Oncology at [address] [phone] 06/25/2024 9:30 AM EDT Office Visit Hematology/Oncology at [address] [phone] Rodriguez Fowler MD [facility] [place] [place] [address] Sherry Cedillo APRN [address] [place] [address] DR [place] [address] 06/25/2024 10:00 AM EDT Infusion Hematology Oncology at [address] [phone] documented as of this encounter [...] - 100 ng/ml 05/05/2024 10:36 AM EDT [facility] Vitamin D Total 25 OH Interp Deficient 05/05/2024 10:36 AM EDT [facility] Blood VENOUS BLOOD SPECIMEN / Unknown Venipuncture / Unknown 05/05/2024 7:19 AM EDT 05/05/2024 7:23 AM EDT Shahida Zamudio APRN CHEMISTRY ORDERABLES [facility] [place] [address] * Phosphorus (05/05/2024 7:19 AM EDT) Phosphorus 3.0 2.5 - 4.5 mg/dL 05/05/2024 7:56 AM EDT [facility] Blood VENOUS BLOOD SPECIMEN / Unknown Venipuncture / Unknown 05/05/2024 7:19 AM EDT 05/05/2024 7:23 AM EDT Shahida Zamudio APRN CHEMISTRY ORDERABLES [facility] [place] [address] * PTH (05/05/2024 7:19 AM EDT) Parathyroid Hormone 50 15 - 65 pg/mL 05/05/2024 8:56 AM EDT [facility] Blood VENOUS BLOOD SPECIMEN / Unknown Venipuncture / Unknown 05/05/2024 7:19 AM EDT 05/05/2024 7:23 AM EDT Shahida Zamudio APRN CHEMISTRY ORDERABLES [facility] [place] [address] * (ABNORMAL) U Albumin/Cre Ratio (05/05/2024 7:19 AM EDT) Albumin, Urine 63.8 mg/L 05/05/2024 11:45 AM EDT [facility] Creatinine, Urine 178 mg/dL 024 11:45 AM EDT [facility] Albumin / Creatinine Ratio, Urine 36(H) 0 - 29 mcg/mg Cr 05/05/2024 11:45 AM EDT [facility] Comment: Reference Ranges: ?? <30 [...] AM EDT Shahida Zamudio APRN URINE ORDERABLES [facility] [place] [address] * (ABNORMAL) Protein/Creatinine Ratio, urine (05/05/2024 7:19 AM EDT) Protein, Urine 25(H) 0 - 12 mg/dL 05/05/2024 11:45 AM EDT [facility] Creatinine, Urine 178 mg/dL 05/05/2024 11:45 AM EDT [facility] Protein / Creatinine Ratio, Urine 0.1 ratio 05/05/2024 11:45 AM EDT [facility] Urine URINE SPECIMEN / Unknown Non Blood Collection / Unknown 05/05/2024 7:19 AM EDT 05/05/2024 7:23 AM EDT Shahida Aliyah Zamudio APRN URINE ORDERABLES [facility] [place] [address] documented in this encounter Visit Diagnoses Diagnosis 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
--- OUTSIDE RECORDS SUMMARY | 2024-05-31 21:20 | XMS_ITS | Encounter Summary ---
Author Organization [facility] Address [facility] [place] [address] Care Team Providers Care Surveillance Analyst Name Role Phone Olga Hoffman APRN Primary Care Provider +1 [phone] Encounter Details Date Type Department Care Team (Latest Contact Info) Description 05/28/2024 Travel Social History Tobacco Use Types Packs/Day Years Used Date Smoking Tobacco: Never Smokeless Tobacco: Never Alcohol Use Standard Drinks/Week Comments Not Currently 0 (1 standard drink = 0.6 oz pur e alcohol) [facility] Utilities Answer Date Recorded In the past [...] 9:30 AM EDT Office Visit Hematology/Oncology at [address] [phone] Rodriguez Fowler MD [facility] [address] Sherry Cedillo APRN [address] [place] [address] DR HEMATOLOGY AND ONCOLOGY [place], [place] [id number] 06/11/2024 10:00 AM EDT Infusion Hematology Oncology at [address] [phone] 06/25/2024 9:30 AM EDT Office Visit Hematology/Oncology at [address] [phone] Rodriguez Fowler MD [facility] [place] [address] Sherry Cedillo APRN [address] [place] [address] DR HEMATOLOGY AND ONCOLOGY [place], [place] [id number] 06/25/2024 10:00 AM EDT Infusion Hematology Oncology at [address] [phone] documented as of this encounter Visit Diagnoses Not on filedocumented in this encounter Care Teams Surveillance Analyst Relationship Specialty Start Date End Date Olga Hoffman APRN [address] [place] [address] PCP - General Family Medicine 10/30/22 documented as of this encounter
--- OUTSIDE RECORDS SUMMARY | 2024-05-31 21:20 | XMS_ITS | Encounter Summary ---
Author Organization [facility] Address [facility] [address] Care Team Providers Care Bulk Sealer Operator Name Role Phone Olga Hoffman APRN Primary Care Provider +1 [phone] Encounter Details Date Type Department Care Team (Late st Contact Info) Description 04/28/2024 Notes Only Hematology [place] [phone] Alo Calhoun, [facility] Social History Tobacco Use Types Packs/Day [...] any time in the past 12 m [facility], were you homeless or living [...] this encounter Progress Notes * Alo Calhoun, 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 The patient's current treatment plan includes: FOLFOX. Pharmacist interpretation of Oncology PGx results is as follows: Interpretation: Gene Based on most recent FDA, CPIC (Clinical Pharmacogenetics Implementation Consortium), and DPWG(Guyanese pharmacogenetics working group) guidelines: DPYD Normal metabolizer [...] 9:30 AM EDT Office Visit Hematology/Oncology at [address] [phone] Rodriguez Fowler MD [facility] [place] [address] HEMATOLOGY AND ONCOLOGY [place], [place] [id number] 06/11/2024 10:00 AM EDT Infusion Hematology Oncology at [address] [phone] 06/25/2024 9:30 AM EDT Office Visit Hematology/Oncology at [address] [phone] Rodriguez Fowler MD [facility] [place] [address] Sherry Cedillo [address] HEMATOLOGY AND ONCOLOGY [place], [place] [id number] 06/25/2024 10:00 AM EDT Infusion Hematology Oncology at [address] [phone] documented as of this encounter Visit Diagnoses Not on filedocumented in this encounter Care Teams Bulk Sealer Operator Relationship Specialty Start Date End Date Olga Hoffman APRN [address] [place] [address] PCP - General Family Medicine 10/30/22 documented as of this encounter
--- OUTSIDE RECORDS SUMMARY | 2024-05-31 21:20 | XMS_ITS | Encounter Summary ---
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; Obesity due to excess calories with serious comorbidity, unspecified classification Social History Tobacco Use Types Packs/Day Years Used Date Smoking Tobacco: Never Smokeless Tobacco: Never Alcohol Use Standard Drinks/Week Comments Not Currently 0 (1 standard drink = 0.6 oz pur e alcohol) [facility] Utilities Answer Date Recorded In the past 12 months has [employer], gas, oil, or water [employer] threatened to [...] 9:30 AM EDT Office Visit Hematology/Oncology at [address] [phone] Rodriguez Fowler MD [facility] [place] [address] Sherry Cedillo CREW TRUCK DRIVER [address] HEMATOLOGY AND ONCOLOGY [place], [place] [id number] 06/11/2024 10:00 AM EDT Infusion Hematology Oncology at [address] [phone] 06/25/2024 9:30 AM EDT Office Visit Hematology/Oncology at [address] [phone] Rodriguez Fowler MD [facility] [place] [address] [address] HEMATOLOGY AND ONCOLOGY [place], [place] [id number] 06/25/2024 10:00 AM EDT Infusion Hematology Oncology at [address] [phone] documented as of this encounter Results * (ABNORMAL) Vitamin D, 25-Hydroxy (05/05/2024 7:19 AM EDT) [facility] Vitamin D Total 25 OH 12(L) 21 - 100 ng/ml 05/05/2024 10:36 AM EDT [facility] Vitamin D Total 25 OH Interp Deficient 05/05/2024 10:36 AM EDT [facility] Blood VENOUS BLOOD SPECIMEN / Unknown Venipuncture / Unknown 05/05/2024 7:19 AM EDT 05/05/2024 7:23 AM EDT Shahida Zamudio APRN CHEMISTRY ORDERABLES [facility] [place] [address] * Phosphorus (05/05/2024 7:19 AM EDT) [facility] Phosphorus 3.0 2.5 - 4.5 mg/dL 05/05/2024 7:56 AM EDT [facility] Blood VENOUS BLOOD SPECIMEN / Unknown Venipuncture / Unknown 05/05/2024 7:19 AM EDT 05/05/2024 7:23 AM EDT Shahida Zamudio APRN CHEMISTRY ORDERABLES Performing Organization Address City/[facility]/ZIP Co de Phone Number [facility] [place] [address] * PTH (05/05/2024 7:19 AM EDT) Parathyroid Hormone 50 15 - 65 pg/mL 05/05/2024 8:56 AM EDT [facility] Blood VENOUS BLOOD SPECIMEN / Unknown Venipuncture / Unknown 05/05/2024 7:19 AM EDT 05/05/2024 7:23 AM EDT Shahida Zamudio APRN CHEMISTRY ORDERABLES Performing Organization Address City/[facility]/ZIP Co de Phone Number [facility] [place] [address] * (ABNORMAL) U Albumin/Cre Ratio (05/05/2024 7:19 AM EDT) Albumin, Urine 63.8 mg/L 05/05/2024 11:45 AM EDT [facility] Creatinine, Urine 178 mg/dL 024 11:45 AM EDT [facility] Albumin / Creatinine Ratio, Urine 36(H) 0 - 29 mcg/mg Cr 05/05/2024 11:45 AM EDT [facility] Comment: Reference Ranges: ?? <30 [...] Diabetes-2016; KDIGO: Kidney International Supplements (2012) 2 ??[phone] Urine URINE SPECIMEN / Unknown Non Blood Collection / Unknown 05/05/2024 7:19 AM EDT 05/05/2024 7:23 AM EDT Shahida Zamudio APRN URINE ORDERABLES Performing Organization Address City/[facility]/ZIP Co de Phone Number [facility] [place] [address] * (ABNORMAL) Protein/Creatinine Ratio, urine (05/05/2024 7:19 AM EDT) Protein, Urine 25(H) 0 - 12 mg/dL 05/05/2024 11:45 AM EDT [facility] Creatinine, Urine 178 mg/dL 05/05/2024 11:45 AM EDT [facility] Protein / Creatinine Ratio, Urine 0.1 ratio 05/05/2024 11:45 AM EDT [facility] Urine URINE SPECIMEN / Unknown Non Blood Collection / Unknown 05/05/2024 7:19 AM EDT 05/05/2024 7:23 AM EDT Shahida Zamudio APRN URINE ORDERABLES Performing Organization Address City/[facility]/ZIP Co de Phone Number [facility] [place] [address] documented in this encounter Visit Diagnoses Diagnosis 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
--- OUTSIDE RECORDS SUMMARY | 2024-05-31 21:20 | XMS_ITS | Encounter Summary ---
Author Organization [facility] Address [facility] [place] [address] Care Team Providers Care Framing Mill Operator Helper Name Role Phone Olga Hoffman APRN Primary Care Provider +1 -[phone] Encounter Details Date Type Department Care Team (Latest Contact Info) Description 04/26/2024 Travel Social History Tobacco Use Types Packs/Day Years Used Date Smoking Tobacco: Never Smokeless Tobacco: Never Alcohol Use Standard Drinks/Week Comments Not Currently 0 (1 standard drink = 0.6 oz pur e alcohol) [facility] Utilities Answer Date Recorded In the [...] in the past 12 m [facility], were you homeless or living [...] 9:30 AM EDT Office Visit Hematology/Oncology at [address] [phone] Rodriguez Fowler MD [facility] [place] [address] Sherry Cedillo APRN [address] [place] [address] DR HEMATOLOGY AND ONCOLOGY [place], [place] [id number] 06/11/2024 10:00 AM EDT Infusion Hematology Oncology at [address] [phone] 06/25/2024 9:30 AM EDT Office Visit Hematology/Oncology at [address] [phone] Rodriguez Fowler MD [facility] [place] [address] Sherry Cedillo APRN [address] [place] [address] DR HEMATOLOGY AND ONCOLOGY [place], [place] [id number] 06/25/2024 10:00 AM EDT Infusion Hematology Oncology at [address] [phone] documented as of this encounter Visit Diagnoses Not on filedocumented in this encounter Care Teams Framing Mill Operator Helper Relationship Specialty Start Date End Date Olga Hoffman APRN [address] [place] [address] PCP - General Family Medicine 10/30/22 documented as of this encounter
--- OUTSIDE RECORDS SUMMARY | 2024-05-31 21:20 | XMS_ITS | Encounter Summary ---
Author Organization [facility] Address [facility] [place] [address] Care Team Providers Care Tumbling Instructor Name Role Phone DaltonAbigailOlgaevy Blel APRN Primary Care Provider +1 -[phone] Reason for Visit * Reason Comments Follow-up Encounter Details Date Type Department Care Team (Late st Contact Info) Description 05/12/2024 3:30 PM EDT Office [place] [address] Rudi Hernandez MD [facility] [place] [address] H/O Whipple procedure Social History Tobacco Use Types Packs/Day Years Used Date Smoking Tobacco: Never Smokeless Tobacco: Never Alcohol Use Standard Drinks/Week Comments Not Currently 0 (1 standard drink = 0.6 oz pur e alcohol) [facility] Utilities Answer Date Recorded In the past 12 months has [employer], gas, oil, or water [employer] threatened to shut off services in your [...] time in the past 12 m [facility], were you homeless or living in [...] Nick is now 2 weeks postop from [place]. He has been home for over a [...] eat, he has resumed eating some traditional Liberian foods and has no abdominal pain with [...] 9:30 AM EDT Office Visit Hematology/Oncology at [address] [phone] Rodriguez Fowler MD [facility] [place] [address] [address] HEMATOLOGY [place] [address] 06/11/2024 10:00 AM EDT Infusion Hematology Oncology at [address] [phone] 06/25/2024 9:30 AM EDT Office Visit Hematology/Oncology at [address] [phone] Rodriguez Fowler MD [facility] [place] [address] HEMATOLOGY AND ONCOLOGY [place], [place] [address] 06/25/2024 10:00 AM EDT Infusion Hematology Oncology at [address] [phone] documented as of this encounter Visit Diagnoses Diagnosis H/O Whipple procedure documented in this encounter Care Teams Tumbling Instructor Relationship Specialty Start Date End Date Olga Hoffman APRN [address] [place] [address] PCP - General Family Medicine 10/30/22 documented as of this encounter
--- OUTSIDE RECORDS SUMMARY | 2024-05-31 21:20 | XMS_ITS | Encounter Summary ---
Author Organization [facility] Address [facility] [place] [address] Care Team Providers Care Barrel Leveler Name Role Phone Olga Hoffman APRN Primary Care Provider +1 -[phone] Encounter Details Date Type Department Care Team (Late st Contact Info) Description 04/28/2024 Orders [place] [phone] Silvio Wheeelr MD [facility] [place] [address] Social History Tobacco Use Types Packs/Day Years Used Date Smoking Tobacco: Never Smokeless Tobacco: Never Alcohol Use Standard Drinks/Week Comments Not Currently 0 (1 standard drink = 0.6 oz pur e alcohol) [facility] Utilities Answer Date Recorded In the past 12 months has [employer], gas, oil, or water [employer] threatened to shut off services in your [...] time in the past 12 m [facility], were you homeless or living [...] 9:30 AM EDT Office Visit Hematology/Oncology at [address] [phone] Rodriguez Fowler MD [facility] [address] [address] HEMATOLOGY AND ONCOLOGY [place], [place] [address] 06/11/2024 10:00 AM EDT Infusion Hematology Oncology at [address] [phone] 06/25/2024 9:30 AM EDT Office Visit Hematology/Oncology at [address] [phone] Rodriguez Fowler MD [facility] [place] [address] [address] HEMATOLOGY AND ONCOLOGY [place], [place] [address] 06/25/2024 10:00 AM EDT Infusion Hematology Oncology at [address] [phone] documented as of this encounter Visit Diagnoses Not on filedocumented in this encounter Care Teams Barrel Leveler Relationship Specialty Start Date End Date Olga Hoffman CHIROPRACTIC TEACHER [address] [place] [address] PCP - General Family Medicine 10/30/22 documented as of this encounter
--- OUTSIDE RECORDS SUMMARY | 2024-05-31 21:20 | XMS_ITS | Encounter Summary ---
Author Organization [facility] [place] [address] Care Team Providers Care Instructor Dramatic Arts Name Role Phone Olga Hoffman APRN Primary Care Provider +1 -[phone] Encounter Details Date Type Department Care Team (Latest Contact Info) Description 05/07/2024 1:00 PM EDT Clinical Support Hematology/Oncolog y at [address] [phone] Leah Rose, RD [facility] DR HEMATOLOGY [place] [address] Duodenal adenocarcinoma Social History Tobacco Use Types Packs/Day Years Used Date Smoking Tobacco: Never Smokeless Tobacco: Never Alcohol Use Standard Drinks/Week Comments Not Currently 0 (1 standard drink = 0.6 oz pur e alcohol) [facility] Utilities Answer Date Recorded In the past 12 months has [employer], gas, oil, or water [employer] threatened to shut off services in your [...] hungry for it. 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 Tonight will be chicken [employer] kerri. He had a hard time recalling what he ate yesterday. Dislikes: salads Preferred drinks: did not discuss today. Medications: 16 units Lantus/day, ZenPep 40 (3 per meal, 1 per snack), Tyelnol prn, Zofran-ODT prn,Omeprazole, Kcl, Mag-Ox, Amlodipine, Naltrexone, Citalopram, Tadalafil, Gabapentin, Lasix Social: Partner is RN at [employer]. Lives in [place], has 3 children. PMH: HTN, DM, depression, [...] AM EDT Office Visit Hematology/Oncology at [address] [phone] Rodriguez Fowler MD [facility] [place] [address] Sherry Cedillo APRN [address] [place] [address] H[place]Y [place] [address] 06/11/2024 10:00 AM EDT Infusion Hematology Oncology at [address] [phone] 06/25/2024 9:30 AM EDT Office Visit Hematology/Oncology at [address] [phone] Rodriguez Fowler MD [facility] [place] [address] Sherry Cedillo APRN [address] [place] [address] DR [place] [address] 06/25/2024 10:00 AM EDT Infusion Hematology Oncology at [address] [phone] documented as of this encounter Visit Diagnoses Diagnosis Duodenal adenocarcinoma Malignant neoplasm of duodenum documented in this encounter Care Teams Instructor Dramatic Arts Relationship Specialty Start Date End Date Olga Hoffman APRN [address] [place] [address] PCP - General Family Medicine 10/30/22 documented as of this encounter
--- OUTSIDE RECORDS SUMMARY | 2024-05-31 21:20 | XMS_ITS | Encounter Summary ---
Author Organization [facility] [place] [address] Care Team Providers Care Military Logistics Specialist Name Role Phone Olga Hoffman APRN Primary Care Provider +1 -[phone] Reason for Visit * Reason Comments IV Access Port flush only-tx h eld * Treatment/Therapy Plan Authorization (Routine) - Authorized Specialty Diagnoses / Procedures Referred By Janak t Referred To Contact Diagnoses Duodenal adenocarcinoma Procedures TC PALONOSETRON HCL, 25MCG, INJECTION (ALOXI) TC OXALIPLATIN, 0.5MG, INJECTION (ELOXATIN) TC LEUCOVORIN CALCIUM, 50MG, INJECTION (WELLCOVORIN) TC FLOUROURACIL, 500MG Rodriguez Fowler MD [facility] [place] [address] Stj Hem Onc Infusion [address] [place] [phone] Referral ID Status Reason Start Date Expiration Date V isits Requested Visits Authorized [id number] Authorized 04/20/2024 04/20/2025 1 101 Encounter Details Date Type Department Care Team (Late st Contact Info) Description 05/07/2024 11:00 AM EDT Infusion Hematology Oncology at [address] [phone] Duodenal adenocarcinoma Social History Tobacco Use Types Packs/Day Years Used Date Smoking Tobacco: Never Smokeless Tobacco: Never Alcohol Use Standard Drinks/Week Comments Not Currently 0 (1 standard drink = 0.6 oz pur e alcohol) [facility] Utilities Answer Date Recorded In the [...] AM EDT Office Visit Hematology/Oncology at [address] [phone] Rodriguez Fowler MD [facility] [place] [address] Sherry Cedillo [address] HEMATOLOGY [place] [address] 06/11/2024 10:00 AM EDT Infusion Hematology Oncology at [address] [phone] 06/25/2024 9:30 AM EDT Office Visit Hematology/Oncology at [address] [phone] Rodriguez Fowler MD [facility] [place] [address] Sherry Cedillo [address] HEMATOLOGY AND ONCOLOGY [place], [place] [address] 06/25/2024 10:00 AM EDT Infusion Hematology Oncology at [address] [phone] documented as of this encounter Visit Diagnoses Diagnosis Duodenal adenocarcinoma Malignant neoplasm of duodenum documented in this encounter Care Teams Military Logistics Specialist Relationship Specialty Start Date End Date Olga Hoffman APRN [address] [place] [address] PCP - General Family Medicine 10/30/22 documented as of this encounter
--- OUTSIDE RECORDS SUMMARY | 2024-05-31 21:20 | XMS_ITS | Encounter Summary ---
Author Organization [facility] Address [facility] [place] [address] Care Team Providers Care Apprentice Funeral Director Name Role Phone Olga Hoffman APRN Primary Care Provider [phone] [phone] Encounter Details Date Type Department Care Team (Late st Contact Info) Description 05/20/2024 9:00 AM EDT Office [place] [address] Rudi Hernandez MD [facility] [place] [address] H/O Whipple procedure Social History Tobacco Use Types Packs/Day Years Used Date Smoking Tobacco: Never Smokeless Tobacco: Never Alcohol Use Standard Drinks/Week Comments Not Currently 0 (1 standard drink = 0.6 oz pur e alcohol) [facility] Utilities Answer Date Recorded In the past 12 months has [employer], gas, oil, or water [employer] threatened to shut off services in your [...] any time in the past 12 m [facility], were you homeless or living in [...] Nick is now 2 weeks postop from [place]. He has been home for over a [...] eat, he has resumed eating some traditional [place] foods and has no abdominal pain with [...] 9:30 AM EDT Office Visit Hematology/Oncology at [address] [phone] Rodriguez Fowler MD [facility] [place] [address] [address] HEMATOLOGY AND ONCOLOGY [place], [place] [address] 06/11/2024 10:00 AM EDT Infusion Hematology Oncology at [address] [phone] 06/25/2024 9:30 AM EDT Office Visit Hematology/Oncology at [address] [phone] Rodriguez Fowler MD [facility] [place] [address] [address] [place] [address] 06/25/2024 10:00 AM EDT Infusion Hematology Oncology at [address] [phone] documented as of this encounter Visit Diagnoses Diagnosis H/O Whipple procedure documented in this encounter Care Teams Apprentice Funeral Director Relationship Specialty Start Date End Date Olga Hoffman APRN [address] [place] [address] PCP - General Family Medicine 10/30/22 documented as of this encounter
--- OUTSIDE RECORDS SUMMARY | 2024-05-31 21:20 | XMS_ITS | Encounter Summary ---
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 Social History Tobacco Use Types Packs/Day Years Used Date Smoking Tobacco: Never Smokeless Tobacco: Never Alcohol Use Standard Drinks/Week Comments Not Currently 0 (1 standard drink = 0.6 oz pur e alcohol) [facility] Utilities Answer Date Recorded In the past 12 months has [employer], gas, oil, or water [employer] threatened to shut off services in [...] any time in the past 12 m [facility], were you homeless or living in [...] this encounter Progress Notes * Shahida Zamudio, BINDERY OPERATOR - 05/05/2024 8:00 AM EDT [facility] NEPHROLOGY [facility]YP[facility]ENSION CLINIC 05/05/2024 PRIMARY CARE PROVIDER: Olga Hoffman APRN TIRE STRIPPER: Dr. 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 He was last seen by Dr. Maxwell in December for 2022 and presents today for routine follow up. Charles notes original diagnosis of membranous nephropathy dating back many years ago in [place]. He presented with edema that was progressive [...] 03/25/2024 CT Guided Drain Pancreatic/Peripancreatic Joe Quintero, [facility] RAD CT SCAN IR BIOPSY LIVER PERCUTANEOUS - NON-FOCAL PARENCHYMA 01/07/2023 IR Biopsy Liver Percutaneous 01/07/2023 Juan Wright MD [facility] INTERVENTIONL RAD IR DRAIN CHECK/CHANGE/REMOVE 04/08/2024 IR Drain Check/Change/Remove 04/08/2024 Juan Wright MD [facility] INTERVENTIONL RAD IR DRAIN CHECK/CHANGE/REMOVE 04/21/2024 IR Drain Check/Change/Remove 04/21/2024 Silvio Wheeler MD [facility] INTERVENTIONL RAD IR DRAIN CHECK/CHANGE/REMOVE 05/05/2024 IR Drain Check/Change/Remove 05/05/2024 Gary Comer MD [facility] INTERVENTIONL RAD IR MEDIPORT PLACEMENT 04/26/2024 IR Mediport Placement 04/26/2024 Latonia Oscar PA [facility] INTERVENTIONL RAD PRO PART REMV PANC, PROX+REMV DUOD+ANAST N/A 03/01/2024 @WHIPPLE PROCEDURE (WRVU 52.84) performed by Rudi Hernandez MD at [facility] MAIN OR PRO TRANSFER SKIN PEDICLE FLAP N/A 03/01/2024 TRANSFER, INTERMEDIATE, ANY PEDICLE FLAP, ANY LOCATION (WRVU 4.77) performed by Rudi Hernandez MD at [facility] MAIN OR MEDICATIONS: Current Outpatient Medications Medication Sig Dispense Refill xkctvc-ywftxery-osezlfs (Zenpep) 40,000-126,000- 168,[address] capsule Take [...] 2 times daily. 30 tablet 0 Insulin Bulger, Disposable, (BD Ultra-Fine Micro Pen Needle) 32 gauge x 1/4 Needle 1 each by [facility].(Non-Drug; Combo Route) route [...] and mineral - PTH normal. Calcium normal. 64-LH-Czxecgu D deficient. Plan for 12 week course [...] plan, and coordinating care. Shahida Zamudio, MSN, MEAT SLICER-C [facility] Nephrology and Hypertension [address] [address] documented in this encounter Plan of Treatment Upcoming Encounters Date Type Department Care Team (Late st Contact Info) Description 06/11/2024 9:30 AM EDT Office Visit Hematology/Oncology at [address] [phone] Rodriguez Fowler MD [facility] [place] [address] [address] HEMATOLOGY AND ONCOLOGY [place], [place] [address] 06/11/2024 10:00 AM EDT Infusion Hematology Oncology at [address] [phone] 06/25/2024 9:30 AM EDT Office Visit Hematology/Oncology at [address] [phone] Rodriguez Fowler MD [facility] [place] [address] [address] HEMATOLOGY AND ONCOLOGY [place], [place] [address] 06/25/2024 10:00 AM EDT Infusion Hematology Oncology at [address] [phone] documented as of this encounter Visit Diagnoses Diagnosis Vitamin D deficiency Unspecified vitamin D deficiency Essential hypertension Unspecified essential hypertension 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
--- OUTSIDE RECORDS SUMMARY | 2024-05-31 21:20 | XMS_ITS | Encounter Summary ---
Author Organization [facility] [place] [address] Care Team Providers Care Cartridge Loader Name Role Phone Olga Hoffman APRN Primary Care Provider [phone] [phone] Encounter Details Date Type Department Care Team (Late st Contact Info) Description 04/27/2024 Orders [place] [address] Rudi Hernandez MD [facility] [place] [address] Social History Tobacco Use Types Packs/Day Years Used Date Smoking Tobacco: Never Smokeless Tobacco: Never Alcohol Use Standard Drinks/Week Comments Not Currently 0 (1 standard drink = 0.6 oz pur e alcohol) [facility] Utilities Answer Date Recorded In the past 12 months has [facility] electric, gas, oil, or water [...] No 01/23/2023 Housing Stability Vital Sign Answer Alexandre e Recorded In the last 12 months, was t here a time when you were not able to pay the mortgage or rent on time? No 03/25/2024 In the past 12 months, how m any times have you moved where you were living? 0 03/25/2024 At any time in the past 12 m [facility], were you homeless or [...] AM EDT Office Visit Hematology/Oncology at [address] [phone] Rodriguez Fowler MD [facility] [place] [address] Sherry Cedillo APRN [address] [place] [address] DR HEMATOLOGY AND ONCOLOGY [place], [place] [phone] 06/11/2024 10:00 AM EDT Infusion Hematology Oncology at [address] [phone] 06/25/2024 9:30 AM EDT Office Visit Hematology/Oncology at [address] [phone] Rodriguez Fowler MD [facility] [place] [address] Sherry Cedillo APRN [address] [place] [address] DR HEMATOLOGY AND ONCOLOGY [place], [place] [phone] 06/25/2024 10:00 AM EDT Infusion Hematology Oncology at [address] [phone] documented as of this encounter Visit Diagnoses Not on filedocumented in this encounter Care Teams Cartridge Loader Relationship Specialty Start Date End Date Olga Hoffman APRN [address] [place] [address] PCP - General Family Medicine 10/30/22 documented as of this encounter
--- OUTSIDE RECORDS SUMMARY | 2024-05-31 21:20 | XMS_ITS | Encounter Summary ---
Author Organization [facility] [place] [address] Care Team Providers Care Open Pit Quarry Supervisor Name Role Phone Olga Hoffman APRN Primary Care Provider [phone] [phone] Reason for Referral * Diagnostic Test (Routine) - New Request Specialty Diagnoses / Procedures Referred By Contac t Referred To Contact Radiology Diagnoses Perihepatic abscess Procedures IR Drain Check/Change/Remove Gary Comer MD [facility] [place] [address] [place] [address] Referral ID Status Reason Start Date Expiration Date Visits Requested Visits Authorized [id number] New Request Specialty Service Requested 05/05/2024 11/05/2025 1 1 * Diagnostic Test (Routine) - New Request Specialty Diagnoses / Procedures Referred By Contac t Referred To Contact Radiology Diagnoses Perihepatic abscess Procedures IR Drain Check/Change/Remove Silvio Wheeler MD [facility] [place] [address] [place] [address] Referral ID Status Reason Start Date Expiration Date Visits Requested Visits Authorized [id number] New Request Specialty Service Requested 04/21/2024 10/22/2025 1 1 Reason for Visit * Diagnostic Test (Routine) - New Request Specialty Diagnoses / Procedures Referred By Janak holland Referred To Contact Radiology Diagnoses Perihepatic abscess Procedures IR Drain Check/Change/Remove Silvio Wheeler MD [facility] [place] [address] [facility] [place] [address] Referral ID Status Reason Start Date Expiration Date Visits Requested Visits Authorized [id number] New Request Specialty Service Requested 04/21/2024 10/22/2025 1 1 Encounter Details Date Type Department Care Team (Latest Contact Info) Description 05/05/2024 8:41 AM EDT - 05/05/2024 11:59 PM EDT Hospital [place] [address] Silvio Wheeler MD [facility] [place] [address] Perihepatic abscess Discharge Disposition: Home Social History Tobacco Use Types Packs/Day Years Used Date Smoking Tobacco: Never Smokeless Tobacco: Never Alcohol Use Standard Drinks/Week Comments Not Currently 0 (1 standard drink = 0.6 oz pur e alcohol) [facility] Utilities Answer Date Recorded In the past 12 months has [employer], gas, oil, or water [employer] threatened to shut off services in your [...] is during regular office hours, please call [phone]. If it is after regular office hours, or on weekends or holidays, please call [phone] and ask to speak to the Wrapper Hand sonography technologist for Interventional Radiology. XX You have received [...] Sig Dispensed Refills Start Date End Date cdkspw-pjfysrht-qnmdq se (Zenpep) 40,000-126,000- 168,[address] capsule [...] 2 times daily. 30 tablet 03/08/2024 Insulin Constable, Disposable, (BD Ultra-Fine Micro Pen Needle) 32 gauge x 1/4 Needle 1 each by [facility].(Non-Drug; Combo Route) route 2 [...] 1975 AGE: 48 y.o. Address: [facility] [address] [facility] [address] (home) [phone] (work) Mobile: Telephone Information: Referring Provider: Silvio Wheeler REASON FOR VISIT: Order Questions Answers Where will study be performed? [facility] Radiology [120] To be scheduled Next available [...] Questions Answers Where will study be performed? [facility] Radiology [120] To be scheduled Next available [...] daily for 14 days. 14 tablet 0 nrmens-noljmeud-vxsagrg (Zenpep) 40,000-126,000- 168,[address] capsule Take [...] 2 times daily. 30 tablet 0 Insulin Constable, Disposable, (BD Ultra-Fine Micro Pen Needle) 32 [...] CT Guided Drain Pancreatic/Peripancreatic Joe Quintero DO [facility] RAD CT SCAN IR BIOPSY LIVER PERCUTANEOUS - NON-FOCAL PARENCHYMA 01/07/2023 IR Biopsy Liver Percutaneous 01/07/2023 Juan Wright MD [facility] INTERVENTIONL RAD IR DRAIN CHECK/CHANGE/REMOVE 04/08/2024 IR Drain Check/Change/Remove 04/08/2024 Juan Wright MD [facility] INTERVENTIONL RAD IR DRAIN CHECK/CHANGE/REMOVE 04/21/2024 IR Drain Check/Change/Remove 04/21/2024 Silvio Wheeler MD [facility] INTERVENTIONL RAD IR MEDIPORT PLACEMENT 04/26/2024 IR Mediport Placement 04/26/2024 Latonia Oscar PA [facility] INTERVENTIONL RAD PRO PART REMV PANC, PROX+REMV DUOD+ANAST N/A 03/01/2024 @FAIZAN PROCEDURE (WRVU 52.84) performed by Rudi Hernandez MD at [facility] MAIN OR PRO TRANSFER SKIN PEDICLE FLAP N/A 03/01/2024 TRANSFER, INTERMEDIATE, ANY PEDICLE FLAP, ANY LOCATION (WRVU 4.77) performed by Rudi Hernandez MD at [facility] MAIN OR Social History and Habits: Social [...] 9:30 AM EDT Office Visit Hematology/Oncology at [address] [phone] Rodriguez Fowler MD [facility] [place] [address] Sherry Cedillo APRN [address] [place] [address] DR HEMATOLOGY [place] [address] 06/11/2024 10:00 AM EDT Infusion Hematology Oncology at [address] [phone] 06/25/2024 9:30 AM EDT Office Visit Hematology/Oncology at [address] [phone] Rodriguez Fowler MD [facility] [place] [address] Sherry Cedillo APRN [address] [place] [address] DR HEMATOLOGY AND ONCOLOGY [place], [place] [address] 06/25/2024 10:00 AM EDT Infusion Hematology Oncology at [address] [phone] Scheduled Orders Name Type Priority Associated Diagnoses [...] sterile barrier technique was used throughout. ?? Process Improvement Specialist fluoroscopic images were obtained. ??Contrast was [...] present throughout the procedure. Silvio Wheeler MD [facility] IR ORDERABLES documented in this encounter Visit [...] mLs documented in this encounter Care Teams Open Pit Quarry Supervisor Relationship Specialty Start Date End Date Olga Hoffman APRN [address] [place] [address] PCP - General Family Medicine 10/30/22 documented as of this encounter
--- OUTSIDE RECORDS SUMMARY | 2024-05-31 21:21 | XMS_ITS | Encounter Summary ---
Author Organization [facility] Address [facility] [place] [address] Care Team Providers Care Senior Report Developer Name Role Phone Olga Hoffman APRN Primary Care Provider +1 [phone] Encounter Details Date Type Department Care Team (Latest Contact Info) Description 04/20/2024 Travel Social History Tobacco Use Types Packs/Day Years Used Date Smoking Tobacco: Never Smokeless Tobacco: Never Alcohol Use Standard Drinks/Week Comments Not Currently 0 (1 standard drink = 0.6 oz pur e alcohol) [facility] Utilities Answer Date Recorded In the past [...] AM EDT Office Visit Hematology/Oncology at [address] [phone] Rodriguez Fowler MD [facility] [place] [address] Sherry Cedillo APRN [address] [place] [address] DR HEMATOLOGY AND ONCOLOGY [place], [place] [phone] 06/11/2024 10:00 AM EDT Infusion Hematology Oncology at [address] [phone] 06/25/2024 9:30 AM EDT Office Visit Hematology/Oncology at [address] [phone] Rodriguez Fowler MD [facility] [place] [address] Sherry Cedillo APRN [address] [place] [address] DR HEMATOLOGY AND ONCOLOGY [place], [place] [phone] 06/25/2024 10:00 AM EDT Infusion Hematology Oncology at [address] [phone] documented as of this encounter Visit Diagnoses Not on filedocumented in this encounter Care Teams Senior Report Developer Relationship Specialty Start Date End Date Olga Hoffman APRN [address] [place] [address] PCP - General Family Medicine 10/30/22 documented as of this encounter
--- OUTSIDE RECORDS SUMMARY | 2024-05-31 21:21 | XMS_ITS | Encounter Summary ---
[place] [address] Care Team Providers Care Funnel Setter Name Role Phone Olga Hoffman APRN Primary Care Provider [phone] [phone] Encounter Details Date Type Department Care Team (Latest Contact Info) Description 04/20/2024 12:29 PM EDT - 04/20/2024 11:59 PM EDT Hospital Encounter Hematology [place] [phone] Duodenal adenocarcinoma; H/O Whipple procedure Discharge Disposition: Home Social History Tobacco Use Types Packs/Day Years Used Date Smoking Tobacco: Never Smokeless Tobacco: Never Alcohol Use Standard Drinks/Week Comments Not Currently 0 (1 standard drink = 0.6 oz pur e alcohol) [facility] Utilities Answer Date Recorded In the past 12 months has e electric, gas, oil, or water [employer] threatened to shut off services in your [...] time in the past 12 m [facility], were you homeless or living in a fdc (including now)? No 03/25/2024 IPV Inpatient Questions [...] Sig Dispensed Refills Start Date End Date pybrbj-oywzefll-iqxwa se (Zenpep) 40,000-126,000- 168,[address] capsule [...] 2 times daily. 30 tablet 03/08/2024 Insulin [place], Disposable, (BD Ultra-Fine Micro Pen Needle) 32 gauge x 1/4 Needle 1 each by [facility]Non-Drug; Combo Route) route 2 times daily. 300 [...] 9:30 AM EDT Office Visit Hematology/Oncology at [address] [phone] [facility] [place] [address] [address] HEMATOLOGY AND ONCOLOGY [place], [place] [phone] 06/11/2024 10:00 AM EDT Infusion Hematology Oncology at [address] [phone] 06/25/2024 9:30 AM EDT Office Visit Hematology/Oncology at [address] [phone] [facility] [place] [address] Sherry Cedillo, [address] HEMATOLOGY AND ONCOLOGY [place], [place] [phone] 06/25/2024 10:00 AM EDT Infusion Hematology Oncology at [address] [phone] documented as of this encounter Procedures Procedure [...] Results * CEA (04/20/2024 12:39 PM EDT) [facility] Carcinoembryonic Antigen 1.1 <=3.8 ng/ml 04/20/2024 1:24 PM EDT [facility] Comment: Some smokers may have elevated CEA, generally < 5.5 ng/mL. This result was generated using a Amanda Bonifacio immunoassay. ??Results obtained from other methods or manufacturers cannot be used interchangeably with this method. Blood VENOUS BLOOD SPECIMEN / Unknown Venipuncture / Unknown 04/20/2024 12:39 PM EDT 04/20/2024 12:39 PM EDT Rodriguez Fowler MD CHEMISTRY ORDERABLES Performing Organization Address City/[facility]/ZIP Co de Phone Number [facility] [place] [address] * PGx Oncology (04/20/2024 12:39 PM EDT) Pathologist [facility] NGS Report Status Normal 04/27/2024 4:56 PM EDT [facility] Blood VENOUS BLOOD SPECIMEN / Unknown Venipuncture / Unknown 04/20/2024 12:39 PM EDT 04/20/2024 12:39 PM EDT Rodriguez Fowler MD MOLECULAR ORDERABLES [facility] [place] [address] * Ferritin (04/20/2024 12:39 PM EDT) Ferritin 55 31 - 409 ng/ml 04/20/2024 1:24 PM EDT [facility] Blood VENOUS BLOOD SPECIMEN / Unknown Venipuncture / Unknown 04/20/2024 12:39 PM EDT 04/20/2024 12:39 PM EDT Rudi Hernandez MD CHEMISTRY ORDERABLES [facility] [place] [address] * (ABNORMAL) Iron and TIBC (04/20/2024 12:39 PM EDT) Iron 49 45 - 160 mcg/dL 04/20/2024 5:03 PM EDT [facility] Unsaturated Iron Binding Capacity 184 110 - 370 mcg/dL 04/20/2024 5:03 PM EDT [facility] TIBC 233(L) 250 - 450 mcg/dL 04/20/2024 5:03 PM EDT [facility] Iron Saturation 21 20 - 50 % 5:03 PM EDT [facility] Blood VENOUS BLOOD SPECIMEN / Unknown Venipuncture / Unknown 04/20/2024 12:39 PM EDT 04/20/2024 12:39 PM EDT Rudi Hernandez MD CHEMISTRY ORDERABLES [facility] [place] [address] * Phosphorus (04/20/2024 12:39 PM EDT) Phosphorus 3.1 2.5 - 4.5 mg/dL 04/20/2024 1:28 PM EDT [facility] Blood VENOUS BLOOD SPECIMEN / Unknown Venipuncture / Unknown 04/20/2024 12:39 PM EDT 04/20/2024 12:39 PM EDT Rudi Hernandez MD CHEMISTRY ORDERABLES [facility] [place] [address] * Magnesium (04/20/2024 12:39 PM EDT) Magnesium 0.74 0.69 - 1.07 mMol/L 04/20/2024 1:28 PM EDT [facility] Blood VENOUS BLOOD SPECIMEN / Unknown Venipuncture / Unknown 04/20/2024 12:39 PM EDT 04/20/2024 12:39 PM EDT Rudi Hernandez MD CHEMISTRY ORDERABLES Performing Organization Address City/[facility]/ZIP Co de Phone Number [facility] [place] [address] * (ABNORMAL) Comprehensive metabolic panel (04/20/2024 12:39 PM EDT) Glucose 204(H) 65 - 199 mg/dL 04/20/2024 1:28 PM EDT [facility] Comment:Glucose Concentratio n >=200 mg/dL plus symptoms is consistent with Diabetes Mellitus. Blood Urea Nitrogen 5(L) 10 - 20 mg/dL 04/20/2024 1:28 PM EDT [facility] Creatinine 0.82 0.80 - 1.50 mg/dL 04/20/2024 1:28 PM EDT [facility] Sodium 141 135 - 145 mMol/L 04/20/2024 1:28 PM EDT [facility] Potassium 4.1 3.5 - 5.0 mMol/L 04/20/2024 1:28 PM EDT [facility] Chloride 104 98 - 107 mMol/L 04/20/2024 1:28 PM EDT [facility] Carbon Dioxide 27 22 - 31 mMol/L 04/20/2024 1:28 PM EDT [facility] Anion Gap 10 5 - 15 mMol/L 04/20/2024 1:28 PM [facility] Calcium 9.2 8.5 - 10.5 mg/dL 04/20/2024 1:28 PM [facility] Protein, Total 6.5 6.1 - 8.0 g/dL 04/20/2024 1:28 PM [facility] Albumin 3.5 3.2 - 5.2 g/dL 04/20/2024 1:28 PM [facility] Aspartate Aminotransferase 15 <=39 unit/L 04/20/2024 1:28 PM [facility] Alanine Aminotransferase 14 0 - 55 unit/L 04/20/2024 1:28 PM [facility] Alkaline Phosphatase 71 40 - 130 unit/L 04/20/2024 1:28 PM [facility] Bilirubin, Total 0.3 <=1.3 mg/dL 04/20/2024 1:28 PM [facility] Est Glomerular Filtration Rate - Male 108 mL/min/1. 73 m?? 04/20/2024 1:28 PM [facility] Comment: This patient's estimated [...] Foundation Fasting Status No 04/20/2024 1:28 PM [facility] Blood VENOUS BLOOD SPECIMEN / Unknown Venipuncture / Unknown 04/20/2024 12:39 PM EDT 04/20/2024 12:39 PM EDT Rudi Hernandez MD CHEMISTRY ORDERABLES [facility] [place] [address] * (ABNORMAL) CBC (with Diff) (04/20/2024 12:39 PM EDT) White Blood Cell 7.18 x10(3)/mc L 04/20/2024 12:49 PM EDT [facility] Red Blood Cell 5.26 4.58 - 5.54 x10(6)/mc L 04/20/2024 12:49 PM EDT [facility] Hemoglobin 12.6(L) 13.7 - 16.5 g/dL 04/20/2024 12:49 PM EDT [facility] Hematocrit 40.5 40.5 - 48.5 % 04/20/2024 12:49 PM EDT [facility] Mean Cell Volume 77.0(L) 82.9 - 93.1 fL 04/20/2024 12:49 PM EDT [facility] Mean Cell Hemoglobin 24.0(L) 27.5 - 32.1 pg 04/20/2024 12:49 PM EDT [facility] Mean Cell Hemoglobin Concentration 31.1(L) 32.0 - 35.7 g/dL 04/20/2024 12:49 PM EDT [facility] Platelet 178 145 - 357 x10(3)/mc L 04/20/2024 12:49 PM EDT [facility] Mean Platelet Volume 10.5 7.6 - 12.9 fL 04/20/2024 12:49 PM EDT [facility] RDW Standard Deviation 48.7(H) 36.0 - 45.0 fL 04/20/2024 12:49 PM EDT [facility] RDW coefficient of variation 17.7(H) 11.4 - 13.8 % 04/20/2024 12:49 PM EDT [facility] NRBC% auto 0.0 % 04/20/2024 12:49 PM EDT [facility] NRBC Absolute 0.00 0.00 - 0.00 x10(3)/mc L 04/20/2024 12:49 PM EDT [facility] Neutrophil % 66.4 % 04/20/2024 12:49 PM EDT [facility] Neutrophil Absolute (ANC) - Automated 4.77 1.70 - 6.10 x10(3)/mc L 04/20/2024 12:49 PM EDT [facility] Lymph % 20.8 % 04/20/2024 12:49 PM EDT [facility] Lymph Absolute 1.49 0.90 - 3.20 x10(3)/mc L 04/20/2024 12:49 PM EDT [facility] Monocyte % 6.1 % 04/20/2024 12:49 PM EDT [facility] Monocyte Absolute 0.44 0.30 - 0.90 x10(3)/mc L 04/20/2024 12:49 PM EDT [facility] Eos % 5.3 % 04/20/2024 12:49 PM EDT [facility] Eos Absolute 0.38 0.00 - 0.40 x10(3)/mc L 04/20/2024 12:49 PM EDT [facility] Basophil % 0.6 % 04/20/2024 12:49 PM EDT [facility] Baso Absolute 0.04 0.00 - 0.10 x10(3)/mc L 04/20/2024 12:49 PM EDT [facility] Immature Gran % 0.8 % 12:49 PM EDT [facility] Immature Gran Absolute 0.06(H) 0.00 - 0.04 x10(3)/mc L 04/20/2024 12:49 PM EDT [facility] Blood VENOUS BLOOD SPECIMEN / Unknown Venipuncture / Unknown 04/20/2024 12:39 PM EDT 04/20/2024 12:39 PM EDT Rudi Hernandez MD [place] [address] documented in this encounter Visit Diagnoses Diagnosis 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
--- OUTSIDE RECORDS SUMMARY | 2024-05-31 21:21 | XMS_ITS | Encounter Summary ---
Author Organization [facility] [place] [address] Care Team Providers Care Outbound Sales Specialist Name Role Phone Olga Hoffman APRN Primary Care Provider [phone] Reason for Referral * Diagnostic Test (Routine) - Closed Specialty Diagnoses / Procedures Referred By Contac t Referred To Contact Radiology Diagnoses H/O Whipple procedure Procedures CT Abdomen & Pelvis w Contrast Rudi Hernandez MD [facility] [place] [address] [facility] [place] [address] Referral ID Status Reason Start Date Expiration Date V isits Requested Visits Authorized [id number] Closed Specialty Service Requested 04/08/2024 10/09/2025 1 1 Reason for Visit * Diagnostic Test (Routine) - Closed Specialty Diagnoses / Procedures Referred By Contac t Referred To Contact Radiology Diagnoses H/O Whipple procedure Procedures CT Abdomen & Pelvis w Contrast Rudi Hernandez MD [facility] [place] [address] [facility] [place] [address] Referral ID Status Reason Start Date Expiration Date V isits Requested Visits Authorized [id number] Closed Specialty Service Requested 04/08/2024 10/09/2025 1 1 Encounter Details Date Type Department Care Team (Latest Contact Info) Description 04/08/2024 11:06 AM EDT - 04/08/2024 11:59 PM EDT Hospital Encounter CT Scan [place] [facility] [place] [address] Rudi Hernandez MD [facility] [place] [place] [address] H/O Whipple procedure Discharge Disposition: Home Social History Tobacco Use Types Packs/Day Years Used Date Smoking Tobacco: Never Smokeless Tobacco: Never Alcohol Use Standard Drinks/Week Comments Not Currently 0 (1 standard drink = 0.6 oz pur e alcohol) [facility] Utilities Answer Date Recorded In [...] any time in the [facility] were [facility] homeless or living in [...] 2 times daily. 30 tablet 03/08/2024 Insulin [place], Disposable, (BD Ultra-Fine Micro Pen Needle) 32 [...] for 14 days. 28 tablet 04/08/2024 04/21/2024 nntpwo-rmhkwclc-gfnyu se (Zenpep) 40,000-126,000- 168,000 unit capsuleIndications:H/ O Whipple procedure Take 2 capsules by mouth 3 times daily. Take 2 capsules with meals and 1 capsule with snacks. 300 capsule 3 03/22/2024 04/09/2024 documented as of this encounter Plan of Treatment Upcoming Encounters Date Type Department Care Team (Late st Contact Info) Description 06/11/2024 9:30 AM EDT Office Visit Hematology/Oncology at [address] [phone] Rodriguez Fowler MD [facility] [place] [address] Sherry Cedillo APRN [address] [place] [address] DR HEMATOLOGY AND ONCOLOGY [place], [place] [phone] 06/11/2024 10:00 AM EDT Infusion Hematology Oncology at [address] [phone] 06/25/2024 9:30 AM EDT Office Visit Hematology/Oncology at [address] [phone] Rodriguez Fowelr MD [facility] [place] [address] Sherry Cedillo APRN [address] [place] [address] HEMATOLOGY AND ONCOLOGY [place], [place] [phone] 06/25/2024 10:00 AM EDT Infusion Hematology Oncology at [address] [phone] documented as of this encounter Procedures Procedure Name Priority Date/Time Associated Diagnosis Comments CT ABDOMEN AND PELVIS W CONTRAST Routine 04/08/2024 11:27 AM EDT H/O Whipple procedure documented in this encounter Results * CT Abdomen & Pelvis w Contrast (04/08/2024 11:27 AM EDT) [employer] WORKSTATION ID [id number] RAD Anatomical Region Laterality Modality Abdomen, Pelvis [...] who have questions please contact the health managed care analyst that requested your imaging first. ? Electronically signed by: Flakito Cummings MD, [facility] ([phone]), at 04/09/2024 10:10 AM Narrative 04/09/2024 10:10 [...] patients who have questions please contactthe health managed care analyst that requested your imaging first. Rudi Hernandez [...] mLs documented in this encounter Care Teams Outbound Sales Specialist Relationship Specialty Start Date End Date Olga Hoffman APRN [address] [place] [address] PCP - General Family Medicine 10/30/22 documented as of this encounter
--- OUTSIDE RECORDS SUMMARY | 2024-05-31 21:21 | XMS_ITS | Encounter Summary ---
Author Organization [facility] Address [facility] [place] [address] Care Team Providers Care Ic Designer Standard Cells Name Role Phone DaltonAbigail choihryn Arablela RUST Primary Care Provider [phone] [phone] Encounter Details Date Type Department Care Team (Late st Contact Info) Description 04/20/2024 [place] [phone] Latonia Oscar PA [facility] [place] [address] Social History Tobacco Use Types Packs/Day Years Used Date Smoking Tobacco: Never Smokeless Tobacco: Never Alcohol Use Standard Drinks/Week Comments Not Currently 0 (1 standard drink = 0.6 oz pur e alcohol) [facility] Utilities Answer Date Recorded In the past 12 months has [facility] [employer], gas, oil, or water [employer] threatened to shut off services in your [...] in a jail (including now)? No 03/25/2024 IPV Inpatient Questions [...] Prior to Visit Medication Sig Dispense Refill fqzjel-owlyyuiz-qdnphxf (Zenpep) 40,000-126,000- 168,[address] capsule Take [...] 2 times daily. 30 tablet 0 Insulin [place], Disposable, (BD Ultra-Fine Micro Pen Needle) 32 [...] 03/25/2024 CT Guided Drain Pancreatic/Peripancreatic Joe Quintero, [facility] RAD CT SCAN IR BIOPSY LIVER PERCUTANEOUS - NON-FOCAL PARENCHYMA 01/07/2023 IR Biopsy Liver Percutaneous 01/07/2023 Juan Wright MD [facility] INTERVENTIONL RAD IR DRAIN CHECK/CHANGE/REMOVE 04/08/2024 IR Drain Check/Change/Remove 04/08/2024 Juan Wrgiht MD [facility] INTERVENTIONL RAD PRO PART REMV PANC, PROX+REMV DUOD+ANAST N/A 03/01/2024 @WHIPPLE PROCEDURE (WRVU 52.84) performed by Rudi Hernandez MD at [facility] MAIN OR PRO TRANSFER SKIN PEDICLE FLAP N/A 03/01/2024 TRANSFER, INTERMEDIATE, ANY PEDICLE FLAP, ANY LOCATION (WRVU 4.77) performed by Rudi Hernandez MD at [facility] MAIN OR Social History and Habits: [...] 9:30 AM EDT Office Visit Hematology/Oncology at [address] [phone] Rodriguez Fowler MD [facility] [place] [address] Sherry Cedillo APRN [address] [place] [address] DR HEMATOLOGY AND ONCOLOGY [place], [place] [phone] 06/11/2024 10:00 AM EDT Infusion Hematology Oncology at [address] [phone] 06/25/2024 9:30 AM EDT Office Visit Hematology/Oncology at [address] [phone] Rodriguez Fowler MD [facility] [place] [address] Sherry Cedillo APRN [address] [place] [address] DR HEMATOLOGY AND ONCOLOGY [place], [place] [phone] 06/25/2024 10:00 AM EDT Infusion Hematology Oncology at [address] [phone] documented as of this encounter Visit Diagnoses Not on filedocumented in this encounter Care Teams Ic Designer Standard Cells Relationship Specialty Start Date End Date Olga Hoffman APRN [address] [place] [address] PCP - General Family Medicine 10/30/22 documented as of this encounter
--- OUTSIDE RECORDS SUMMARY | 2024-05-31 21:21 | XMS_ITS | Encounter Summary ---
Author Organization [facility] Address [facility] [place] [address] Care Team Providers Care Pensionholder Information Clerk Name Role Phone Ogla Hoffman APRN Primary Care Provider [phone] Encounter Details Date Type Department Care Team (Late st Contact Info) Description 04/08/2024 10:00 AM EDT Clinical Support [place] [address] Donna Dewey, RD [facility] [place] [address] H/O Whipple procedure Social History Tobacco Use Types Packs/Day Years Used Date Smoking Tobacco: Never Smokeless Tobacco: Never Alcohol Use Standard Drinks/Week Comments Not Currently 0 (1 standard drink = 0.6 oz pur e alcohol) [facility] Utilities Answer Date Recorded In the past 12 months has [place], gas, oil, or water [employer] threatened to shut off services in your [...] s/p Whipple on 03/01/24. Recently [place] [facility] [place] for new peripancreatic abscess on [...] 9:30 AM EDT Office Visit Hematology/Oncology at [address] [phone] Rodriguez Fowler MD [facility] [place] [address] [address] HEMATOLOGY AND ONCOLOGY [place], [place] [address] 06/11/2024 10:00 AM EDT Infusion Hematology Oncology at [address] [phone] 06/25/2024 9:30 AM EDT Office Visit Hematology/Oncology at [address] [phone] Rodriguez Fowler MD [facility] [place] [address] [address] HEMATOLOGY AND ONCOLOGY [place], [place] [phone] 06/25/2024 10:00 AM EDT Infusion Hematology Oncology at [address] [phone] documented as of this encounter Visit Diagnoses Diagnosis H/O Whipple procedure documented in this encounter Care Teams Pensionholder Information Clerk Relationship Specialty Start Date End Date Olga Hoffman APRN [address] [place] [address] PCP - General Family Medicine 10/30/22 documented as of this encounter
--- OUTSIDE RECORDS SUMMARY | 2024-05-31 21:21 | XMS_ITS | Encounter Summary ---
Author Organization [facility] [address] Care Team Providers Care Post Tensioning Ironworker Name Role Phone Olga Hoffman APRN Primary Care Provider [phone] [phone] Reason for Referral * Diagnostic Test (Routine) - New Request Specialty Diagnoses / Procedures Referred By Contac t Referred To Contact Radiology Diagnoses Perihepatic abscess Duodenal adenocarcinoma Obesity due to excess calories with serious comorbidity, unspecified classification Procedures IR Drain Check/Change/Remove Joe Quintero, [facility] [place] [address] [place] [address] Referral ID Status Reason Start Date Expiration Date Visits Requested Visits Authorized [id number] New Request Specialty Service Requested 03/25/2024 09/25/2025 1 1 Reason for Visit * Diagnostic Test (Routine) - New Request Specialty Diagnoses / Procedures Referred By Contac t Referred To Contact Radiology Diagnoses Perihepatic abscess Duodenal adenocarcinoma Obesity due to excess calories with serious comorbidity, unspecified classification Procedures IR Drain Check/Change/Remove Joe Quintero, [facility] [address] [place] [address] Referral ID Status Reason Start Date Expiration Date Visits Requested Visits Authorized [id number] New Request Specialty Service Requested 03/25/2024 09/25/2025 1 1 Encounter Details Date Type Department Care Team (Latest Contact Info) Description 04/08/2024 10:50 AM EDT - 04/08/2024 11:05 AM EDT Hospital [place] [phone] Perihepatic abscess; Duodenal adenocarcinoma; Obesity due to excess calories with serious comorbidity, unspecified classification Discharge Disposition: Home Social History Tobacco Use Types Packs/Day Years Used Date Smoking Tobacco: Never Smokeless Tobacco: Never Alcohol Use Standard Drinks/Week Comments Not Currently 0 (1 standard drink = 0.6 oz pur e alcohol) [facility] Utilities Answer Date Recorded In the [...] is during regular office hours, please call [phone]. If it is after regular office hours, or on weekends or holidays, please call [phone] and ask to speak to the Fund Manager balloon design printer for Interventional Radiology. XX You have received [...] 2 times daily. 30 tablet 03/08/2024 Insulin [place], Disposable, (BD Ultra-Fine Micro Pen Needle) 32 gauge x 1/4 Needle 1 each by [facility]Non-Drug; Combo Route) route 2 times daily. 300 [...] for 7 days. 42 tablet 04/01/2024 04/08/2024 xngtwv-fvpogkze-hhsvm se (Zenpep) 40,000-126,000- 168,000 unit capsuleIndications:H/ O Whipple procedure Take 2 capsules by mouth 3 times daily. Take 2 capsules with meals and 1 capsule with snacks. 300 capsule 3 03/22/2024 04/09/2024 documented as of this encounter Progress Notes * Jaki Cardnoa RN - 04/08/2024 12:12 PM EDT [facility] DATABASE Name: Charles Nick Date of : 1975 AGE: 48 y.o. Address: [facility] [address] [place] [phone] (home) [phone] (work) Mobile: Telephone Information: Referring Provider: Joe Quintero REASON FOR VISIT: Order Questions Answers Where will study be performed? [facility] Radiology [120] To be scheduled Next [...] Questions Answers Where will study be performed? [facility] Radiology [120] To be scheduled Next [...] daily for 7 days. 42 tablet 0 hwzqam-bietglcs-zxqwffx (Zenpep) 40,000-126,000- 168,[address] capsule Take [...] 2 times daily. 30 tablet 0 Insulin [place], Disposable, (BD Ultra-Fine Micro Pen Needle) 32 gauge x 1/4 Needle 1 each by [facility]Non-Drug; Combo Route) route 2 times daily. 300 [...] APRN 4 Units at 04/01/24 1307 [DISCONTINUED] isfyfv-kgtlptdi-hyyvmyd DR (Zenpep 20) 20,000-63,000- 84,000 unit per [...] CT Guided Drain Pancreatic/Peripancreatic Joe Quintero DO [facility] RAD CT SCAN IR BIOPSY LIVER PERCUTANEOUS - NON-FOCAL PARENCHYMA 01/07/2023 IR Biopsy Liver Percutaneous 01/07/2023 Juan Wright MD [facility] INTERVENTIONL RAD PRO PART REMV PANC, PROX+REMV DUOD+ANAST N/A 03/01/2024 @CHAKA PROCEDURE (WRVU 52.84) performed by Rudi Hernandez MD at [facility] MAIN OR PRO TRANSFER SKIN PEDICLE FLAP N/A 03/01/2024 TRANSFER, INTERMEDIATE, ANY PEDICLE FLAP, ANY LOCATION (WRVU 4.77) performed by Rudi Hernandez MD at [facility] MAIN OR Social History and Habits: [...] 9:30 AM EDT Office Visit Hematology/Oncology at [address] [phone] Rodriguez Fowler MD [facility] [place] [address] [address] [place] [address] 06/11/2024 10:00 AM EDT Infusion Hematology Oncology at [address] [phone] 06/25/2024 9:30 AM EDT Office Visit Hematology/Oncology at [address] [phone] Rodriguez Fowler MD [facility] [place] [address] [address] HEMATOLOGY AND ONCOLOGY [place], [place] [address] 06/25/2024 10:00 AM EDT Infusion Hematology Oncology at [address] [phone] documented as of this encounter [...] mLs documented in this encounter Care Teams Post Tensioning Ironworker Relationship Specialty Start Date End Date Olga Hoffman, YOCASTA [address] [place] [address] PCP - General Family Medicine 10/30/22 documented as of this encounter
--- OUTSIDE RECORDS SUMMARY | 2024-05-31 21:21 | XMS_ITS | Encounter Summary ---
[place] [address] Care Team Providers Care Roundhouse Worker Name Role Phone Olga Hoffman APRN Primary Care Provider [phone] [phone] Encounter Details Date Type Department Care Team (Latest Contact Info) Description 04/08/2024 8:45 AM EDT Laboratory Appointment Lab [address] [place] [address] Duodenal adenocarcinoma Social History Tobacco Use Types [...] 9:30 AM EDT Office Visit Hematology/Oncology at [address] [phone] Rodriguez Fowler MD [facility] [place] [address] Sherry Cedillo APRN [address] [place] [address] [place] [address] 06/11/2024 10:00 AM EDT Infusion Hematology Oncology at [address] [phone] 06/25/2024 9:30 AM EDT Office Visit Hematology/Oncology at [address] [phone] Rodriguez Fowler MD [facility] [place] [address] Sherry Cedillo, YOCASTA [address] [place] [address] DR HEMATOLOGY AND ONCOLOGY [place], [place] [phone] 06/25/2024 10:00 AM EDT Infusion Hematology Oncology at [address] [phone] documented as of this encounter [...] 9:30 AM EDT) Amylase, Fluid >7,500 unit/L [facility] Comment: Reference intervals are unavailable for this test in body fluids. Comparison of this result with the concentration in blood, serum, or plasma is recommended. This test has not been cleared by the [place] FDA. Performance characteristics of this test for the analysis of body fluids were determined by [facility] in accordance with CLIA requirements. This laboratory is qualified under CLIA to perform high-complexity testing. Amylase BF Type BASIA Drain [facility] BASIA Drain 04/08/2024 9:30 AM EDT 04/08/2024 9:40 AM EDT Narrative Resulting Agency Comment Spec In Lab Rudi Hernandez MD BODY FLUIDS AND OREN LS ORDERABLES [facility] [place] [address] * (ABNORMAL) Differential, Automated (04/08/2024 8:17 AM EDT) Neutrophil % 73.9 % [facility] Neutrophil Absolute 7.47(H) 1.70 - 6.10 x10(3)/mc L [facility] Lymph % 17.6 % [facility] Lymphocytes Abs 1.8 0.9 - 3.2 x10(3)/mc L [facility] Monocyte % 4.5 % [facility] Monocyte Abs 0.4 0.3 - 0.9 x10(3)/mc L [facility] Eos % 2.6 % [facility] Eosinophils Abs 0.3 0.0 - 0.4 x10(3)/mc L [facility] Basophil % 1.1 % [facility] Baso Absolute 0.1 0.0 - 0.1 x10(3)/mc L [facility] Immature Gran % 0.30 % [facility] Comment: Immature granulocytes(IG's)percentage and absolute count will include metamyelocytes, myelocytes, and promyelocytes. Blood smears from CBCs yielding IG's will be scanned manually for concordance. If this scan disagrees with the automated IG or if promyelocytes are noted, a manual differential will be performed. Immature Gran Absolute 0.03 0.00 - 0.04 x10(3)/mc L [facility] Blood 04/08/2024 8:17 AM EDT 04/08/2024 8:38 AM EDT Narrative Resulting Agency Comment Spec In Lab Gary KIM HEMATOLOGY ORDERABLE S [facility] [place] [address] * (ABNORMAL) Hemogram (04/08/2024 8:17 AM EDT) White Blood Cell 10.1(H) 4.0 - 9.5 x10(3)/mc L [facility] Red Blood Cell 5.86(H) 4.58 - 5.54 x10(6)/mc L [facility] Hemoglobin 14.0 13.7 - 16.5 g/dL [facility] Hematocrit 45.1 40.5 - 48.5 % [facility] Mean Cell Volume 77.0(L) 82.9 - 93.1 fL [facility] Mean Cell Hemoglobin 23.9(L) 27.5 - 32.1 pg [facility] Mean Cell Hemoglobin Concentration 31.0(L) 32.0 - 35.7 g/dL [facility] Platelet 248 145 - 357 x10(3)/mc L [facility] RDW Standard Deviation 47.8(H) 36.0 - 45.0 [facility] RDW coefficient of variation 18.4(H) 11.4 - 13.8 % [facility] Mean Platelet Volume 11.0 7.6 - 12.9 [facility] NRBC% auto 0.0 % [facility] NRBC Absolute 0.000 0.000 - 0.000 x10(3)/mc L [facility] Blood 04/08/2024 8:17 AM EDT 04/08/2024 8:38 AM EDT Narrative Resulting Agency Comment Spec In Lab Gary KIM HEMATOLOGY ORDERABLE S [facility] [place] [address] * (ABNORMAL) Comprehensive metabolic panel (non-fasting) (04/08/2024 8:17 AM EDT) Glucose 183 65 - 199 mg/dL [facility] Comment:Diabetes: >=200 mg/d L plus symptoms Blood Urea Nitrogen 3(L) 10 - 20 mg/dL [facility] Creatinine 0.97 0.80 - 1.50 mg/dL [facility] Sodium 139 135 - 145 mmol/L [facility] Potassium 4.8 3.5 - 5.0 mmol/L [facility] Comment: Please note: ??Patients with WBC >100,000 may have falsely elevated Potassium levels. ??For accurate Potassium quantification in these patients send serum separator tube (gold top) for subsequent determinations. ??Contact the Clinical Chemistry Laboratory if there are any questions. Chloride 100 98 - 107 mmol/L [facility] Carbon Dioxide 26 22 - 31 mmol/L [facility] Anion Gap 13 5 - 15 mmol/L [facility] Calcium 9.3 8.5 - 10.5 mg/dL [facility] Protein, Total 7.3 6.1 - 8.0 g/dL [facility] Albumin 3.6 3.2 - 5.2 g/dL [facility] Aspartate Aminotransferase 26 0 - 39 unit/L [facility] Alanine Aminotransferase 30 0 - 55 unit/L [facility] Alkaline Phosphatase 105 40 - 130 unit/L [facility] Bilirubin, Total 0.3 0.2 - 1.3 mg/dL [facility] Est Glomerular Filtration Rate 96 >=60 mL/min/1. 73 m?? [facility] Comment: This patient's estimated [...] Hernandez MD CHEMISTRY ORDERABLES Performing Organization Address City/State/[facility] Co de Phone Number [facility] [place] [address] documented in this encounter Visit Diagnoses Diagnosis Duodenal adenocarcinoma Malignant neoplasm of duodenum documented in this encounter Care Teams Roundhouse Worker Relationship Specialty Start Date End Date Olga Hoffman APRN [address] [place] [address] PCP - General Family Medicine 10/30/22 documented as of this encounter
--- OUTSIDE RECORDS SUMMARY | 2024-05-31 21:21 | XMS_ITS | Encounter Summary ---
Author Organization [facility] [place] [address] Care Team Providers Care Airplane Designer Name Role Phone Olga Hoffman APRN Primary Care Provider +1 [phone] Encounter Details Date Type Department Care Team (Late st Contact Info) Description 04/09/2024 Orders Only [place] [address] Rudi Hernandez MD [facility] [place] [address] Social History Tobacco Use Types Packs/Day Years Used Date Smoking Tobacco: Never Smokeless Tobacco: Never Alcohol Use Standard Drinks/Week Comments Not Currently 0 (1 standard drink = 0.6 oz pur e alcohol) [facility] Utilities Answer Date Recorded In the past 12 months has [facility] electric, gas, oil, or water company [...] in the past 12 m [facility], were you homeless or living in [...] AM EDT Office Visit Hematology/Oncology at [address] [phone] Rodriguez Fowler MD [facility] [place] [address] Sherry Cedillo APRN [address] [place] [address] DR HEMATOLOGY AND ONCOLOGY [place], [place] [id number] 06/11/2024 10:00 AM EDT Infusion Hematology Oncology at [address] [phone] 06/25/2024 9:30 AM EDT Office Visit Hematology/Oncology at [address] [phone] Rodriguez Fowler MD [facility] [place] [address] Sherry Cedillo APRN [address] [place] [address] DR HEMATOLOGY AND ONCOLOGY [place], [place] [phone] 06/25/2024 10:00 AM EDT Infusion Hematology Oncology at [address] [phone] documented as of this encounter Visit Diagnoses Not on filedocumented in this encounter Care Teams Airplane Designer Relationship Specialty Start Date End Date Olga Hoffman APRN [address] [place] [address] PCP - General Family Medicine 10/30/22 documented as of this encounter
--- OUTSIDE RECORDS SUMMARY | 2024-05-31 21:21 | XMS_ITS | Encounter Summary ---
Author Organization [facility] Address One [facility] [place] [address] Care Team Providers Care Miner Operator Name Role Phone Olga Hoffman APRN Primary Care Provider +1 [phone] Encounter Details Date Type Department Care Team [...] AM EDT Office Visit Hematology/Oncology at [address] [phone] Rodriguez Fowler MD [facility] [place] [address] Sehrry Cedillo APRN [address] [place] [address] DR HEMATOLOGY AND ONCOLOGY [place], [place] [phone] 06/11/2024 10:00 AM EDT Infusion Hematology Oncology at [address] [phone] 06/25/2024 9:30 AM EDT Office Visit Hematology/Oncology at [address] [phone] Rodriguez Fowler MD [facility] [place] [address] Sherry Cedillo APRN [address] [place] [address] DR HEMATOLOGY AND ONCOLOGY [place], [place] [phone] 06/25/2024 10:00 AM EDT Infusion Hematology Oncology at [address] [phone] documented as of this encounter Visit Diagnoses Not on filedocumented in this encounter Care Teams Miner Operator Relationship Specialty Start Date End Date Olga Hoffman APRN [address] [place] [address] PCP - General Family Medicine 10/30/22 documented as of this encounter
--- OUTSIDE RECORDS SUMMARY | 2024-05-31 21:21 | XMS_ITS | Encounter Summary ---
Author Organization [facility] Address One [facility] [place] [address] Care Team Providers Care Learning Operations Specialist Name Role Phone Olga Hoffman APRN Primary Care Provider +1 -[phone] Encounter Details Date Type Department Care Team (Latest Contact Info) Description 04/01/2024 Travel Social History Tobacco Use Types Packs/Day Years Used Date Smoking Tobacco: Never Smokeless Tobacco: Never Alcohol Use Standard Drinks/Week Comments Not Currently 0 (1 standard drink = 0.6 oz pur e alcohol) [facility] Utilities Answer Date Recorded In [...] AM EDT Office Visit Hematology/Oncology at [address] [phone] Rodriguez Fowler MD [facility] [place] [place] [address] Sherry Cedillo APRN [address] [place] [address] DR HEMATOLOGY AND ONCOLOGY [place], [place] [id number] 06/11/2024 10:00 AM EDT Infusion Hematology Oncology at [address] [phone] 06/25/2024 9:30 AM EDT Office Visit Hematology/Oncology at [address] [phone] Rodriguez Fowler MD [facility] [place] [address] Sherry Cedillo APRN [address] [place] [address] DR HEMATOLOGY AND ONCOLOGY [place], [place] [phone] 06/25/2024 10:00 AM EDT Infusion Hematology Oncology at [address] [phone] documented as of this encounter Visit Diagnoses Not on filedocumented in this encounter Care Teams Learning Operations Specialist Relationship Specialty Start Date End Date Olga Hoffman APRN [address] [place] [address] PCP - General Family Medicine 10/30/22 documented as of this encounter
--- OUTSIDE RECORDS SUMMARY | 2024-05-31 21:21 | XMS_ITS | Encounter Summary ---
Author Organization [facility] [place] [address] Care Team Providers Care Cartridge Assembling Machine Adjuster Name Role Phone Olga Hoffman APRN Primary Care Provider +1 [phone] Encounter Details Date Type Department Care Team (Late st Contact Info) Description 04/14/2024 Telephone [place] [address] Shahida Joshi Social History Tobacco Use Types Packs/Day Years Used Date Smoking Tobacco: Never Smokeless Tobacco: Never Alcohol Use Standard Drinks/Week Comments Not Currently 0 (1 standard drink = 0.6 oz pur e alcohol) [facility] Utilities Answer Date Recorded [...] AM EDT Office Visit Hematology/Oncology at [address] [phone] Rodriguez Fowler MD [facility] [place] [address] Sherry Cedillo, [address] HEMATOLOGY AND ONCOLOGY [place], [place] [address] 06/11/2024 10:00 AM EDT Infusion Hematology Oncology at [address] [phone] 06/25/2024 9:30 AM EDT Office Visit Hematology/Oncology at [address] [phone] Rodriguez Fowler MD [facility] [place] [address] [address] HEMATOLOGY AND ONCOLOGY [place], [place] [address] 06/25/2024 10:00 AM EDT Infusion Hematology Oncology at [address] [phone] documented as of this encounter Visit Diagnoses Not on filedocumented in this encounter Care Teams Cartridge Assembling Machine Adjuster Relationship Specialty Start Date End Date Olga Hoffman APRN [address] [place] [address] PCP - General Family Medicine 10/30/22 documented as of this encounter
--- OUTSIDE RECORDS SUMMARY | 2024-05-31 21:21 | XMS_ITS | Encounter Summary ---
Author Organization [facility] Address [facility] [place] [address] Care Team Providers Care Variety Lathe Operator Name Role Phone Olga Hoffman APRN Primary Care Provider [phone] [phone] Encounter Details Date Type Department Care Team (Late st Contact Info) Description 04/15/2024 9:00 AM EDT Telephone [place]ematology [place] [address] Donna Dewey, RD [facility] [place] [address] Social History Tobacco Use Types Packs/Day Years Used Date Smoking Tobacco: Never Smokeless Tobacco: Never Alcohol Use Standard Drinks/Week Comments Not Currently 0 (1 standard drink = 0.6 oz pur e alcohol) [facility] Utilities Answer Date Recorded In the past 12 months has [employer], gas, oil, or water [employer] threatened to shut off services in your [...] 9:30 AM EDT Office Visit Hematology/Oncology at [address] [phone] Rodriguez Fowler MD [facility] [place] [address] Sherry Cedillo [address] HEMATOLOGY AND ONCOLOGY [place], [place] [phone] 06/11/2024 10:00 AM EDT Infusion Hematology Oncology at [address] [phone] 06/25/2024 9:30 AM EDT Office Visit Hematology/Oncology at [address] [phone] Rodriguez Fowler MD [facility] [place] [address] [address] HEMATOLOGY AND ONCOLOGY [place], [place] [address] 06/25/2024 10:00 AM EDT Infusion Hematology Oncology at [address] [phone] documented as of this encounter Visit Diagnoses Not on filedocumented in this encounter Care Teams Variety Lathe Operator Relationship Specialty Start Date End Date Olga Hoffman APRN [address] [place] [address] PCP - General Family Medicine 10/30/22 documented as of this encounter
--- OUTSIDE RECORDS SUMMARY | 2024-05-31 21:21 | XMS_ITS | Encounter Summary ---
Author Organization [facility] [address] Care Team Providers Care Repair Armature Winder Name Role Phone Olga Hoffman APRN Primary Care Provider +1 [phone] Reason for Referral * Diagnostic Test (Routine) - Closed Specialty Diagnoses / Procedures Referred By Contac t Referred To Contact Radiology Diagnoses Duodenal adenocarcinoma Procedures IR Mediport Placement Rodriguez Fowler MD [facility] [place] [address] [facility] [address] Referral ID Status Reason Start Date Expiration Date V isits Requested Visits Authorized [id number] Closed Specialty Service Requested 04/20/2024 10/21/2025 1 1 Reason for Visit * Reason Comments Establish Care * Consultation (Routine) - Closed Specialty Diagnoses / Procedures Referred By Contac t Referred To Contact Hematology and Oncology Diagnoses Duodenal adenocarcinoma Rudi Hernandez MD [facility] [place] [address] [facility] Hem Onc [address] [place] [address] Referral ID Status Reason Start Date Expiration Date V isits Requested Visits Authorized [id number] Closed Consult, Test & Treat 03/11/2024 03/11/2025 1 1 Encounter Details Date Type Department Care Team (Latest Contact Info) Description 04/20/2024 11:00 AM EDT Office Visit Hematology and Oncology at [facility] [place] [address] Rodriguez Fowler MD [facility] [place] [address] Duodenal adenocarcinoma Social History Tobacco Use Types Packs/Day Years Used Date Smoking Tobacco: Never Smokeless Tobacco: Never Alcohol Use Standard Drinks/Week Comments Not Currently 0 (1 standard drink = 0.6 oz pur e alcohol) [facility] Utilities Answer Date Recorded In the [...] without imunotherapy. 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 6.Obstructive sleep apnea: [...] symptoms in his fingertips. Soc Hx:Lives in [place], [place] Tob - Never Etoh - Rare [...] after cycle 6-8 to try to avoid termite inspector complications of neuropathy. I will also send [...] even in the absence of cold, angina/ DC, hepatic and renal dysfunction, hypersensitivity reactions and [...] 9:30 AM EDT Office Visit Hematology/Oncology at [address] [phone] Rodriguez Fowler MD [facility] [place] [address] Sherry Cedillo [address] HEMATOLOGY AND ONCOLOGY [place], [place] [address] 06/11/2024 10:00 AM EDT Infusion Hematology Oncology at [address] [phone] 06/25/2024 9:30 AM EDT Office Visit Hematology/Oncology at [address] [phone] Rodriguez Fowler MD [facility] [place] [address] Sherry Cedillo [address] [place] [address] 06/25/2024 10:00 AM EDT Infusion Hematology Oncology at [address] [phone] Scheduled Orders Name Type Priority Associated Diagnoses [...] 1.1 <=3.8 ng/ml 04/20/2024 1:24 PM EDT [facility] Comment: Some smokers may have elevated CEA, generally < 5.5 ng/mL. This result was generated using a Amanda Bonifacio immunoassay. ??Results obtained from other methods or manufacturers cannot be used interchangeably with this method. Blood VENOUS BLOOD SPECIMEN / Unknown Venipuncture / Unknown 04/20/2024 12:39 PM EDT 04/20/2024 12:39 PM EDT Rodriguez Fowler MD CHEMISTRY ORDERABLES [facility] [place] [address] * PGx Oncology (04/20/2024 12:39 PM EDT) NGS Report Status Normal 04/27/2024 4:56 PM EDT [facility] Blood VENOUS BLOOD SPECIMEN / Unknown Venipuncture / Unknown 04/20/2024 12:39 PM EDT 04/20/2024 12:39 PM EDT Rodriguez Fowler MD MOLECULAR ORDERABLES [facility] [place] [address] documented in this encounter Visit Diagnoses Diagnosis 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
--- OUTSIDE RECORDS SUMMARY | 2024-05-31 21:21 | XMS_ITS | Encounter Summary ---
Author Organization [facility] [place] [address] Care Team Providers Care Medical Educator Name Role Phone Olga [place] APRN Primary Care Provider +1 [phone] Reason for Referral * Diagnostic Test (Routine) - Closed Specialty Diagnoses / Procedures Referred By Contac t Referred To Contact Radiology Diagnoses H/O Whipple procedure Procedures CT Abdomen & Pelvis w Contrast Rudi Hernandez MD [facility] [place] [address] [facility] [place] [address] Referral ID Status Reason Start Date Expiration Date V isits Requested Visits Authorized [id number] Closed Specialty Service Requested 04/08/2024 10/09/2025 1 1 Encounter Details Date Type Department Care Team (Late st Contact Info) Description 04/08/2024 9:30 AM EDT Office [place] [address] Rudi Hernandez MD [facility] [place] [address] H/O Whipple procedure Social History Tobacco Use Types Packs/Day Years Used Date Smoking Tobacco: Never Smokeless Tobacco: Never Alcohol Use Standard Drinks/Week Comments Not Currently 0 (1 standard drink = 0.6 oz pur e alcohol) [facility] Utilities Answer Date Recorded [...] any time in the past 12 m [facility], were you homeless or living in [...] Nick is now 2 weeks postop from [place]. He has been home for over a [...] which isstill high. Representing a pancreas leak. Eud has been recording volume output and it is in [id number] range. I discussed this with interventional radiology [...] 9:30 AM EDT Office Visit Hematology/Oncology at [address] [phone] Rodriguez Fowler MD [facility] [place] [address] [address] HEMATOLOGY AND ONCOLOGY [place], [place] [phone] 06/11/2024 10:00 AM EDT Infusion Hematology Oncology at [address] [phone] 06/25/2024 9:30 AM EDT Office Visit Hematology/Oncology at [address] [phone] Rodriguez Fowler MD [facility] [place] [address] [address] HEMATOLOGY AND ONCOLOGY [place], [place] [phone] 06/25/2024 10:00 AM EDT Infusion Hematology Oncology at [address] [phone] Scheduled Orders Name Type Priority Associated Diagnoses Orde r Schedule EKG 12 Lead ECG Routine H/O Whipple procedure Expected: 04/22/2024, Expires: 10/22/2024 documented as of this encounter Results * Ferritin (04/20/2024 12:39 PM EDT) Ferritin 55 31 - 409 ng/ml 04/20/2024 1:24 PM EDT [facility] Blood VENOUS BLOOD SPECIMEN / Unknown Venipuncture / Unknown 04/20/2024 12:39 PM EDT 04/20/2024 12:39 PM EDT Rudi Hernandez MD CHEMISTRY ORDERABLES [facility] [place] [address] * (ABNORMAL) Iron and TIBC (04/20/2024 12:39 PM EDT) Pathologist [employer] Iron 49 45 - 160 mcg/dL 04/20/2024 5:03 PM EDT [facility] Unsaturated Iron Binding Capacity 184 110 - 370 mcg/dL 04/20/2024 5:03 PM EDT [facility] TIBC 233(L) 250 - 450 mcg/dL 04/20/2024 5:03 PM EDT [facility] Iron Saturation 21 20 - 50 % 5:03 PM EDT [facility] Blood VENOUS BLOOD SPECIMEN / Unknown Venipuncture / Unknown 04/20/2024 12:39 PM EDT 04/20/2024 12:39 PM EDT Rudi Hernandez MD CHEMISTRY ORDERABLES [facility] [place] [address] * CT Abdomen & Pelvis w Contrast (04/08/2024 11:27 AM EDT) Pathologist [employer] WORKSTATION ID [id number] DH RAD Anatomical Region Laterality Modality Abdomen, [...] who have questions please contact the health manager respiratory care that requested your imaging first. ? Electronically signed by: Flakito Cummings MD, [facility] ([phone]), at 04/09/2024 10:10 AM Narrative 04/09/2024 10:10 [...] patients who have questions please contactthe health manager respiratory care that requested your imaging first. Electronically signed by: Flakito Cummings MD, [facility]([phone]), at 04/09/2024 10:10 AM Rudi Hernandez MD IMG CT ORDERABLES documented in this encounter Visit Diagnoses Diagnosis H/O Whipple procedure H/O Whipple procedure documented in this encounter Care Teams Medical Educator Relationship Specialty Start Date End Date Olga Hoffman APRN [address] [place] [address] PCP - General Family Medicine 10/30/22 documented as of this encounter
--- OUTSIDE RECORDS SUMMARY | 2024-05-31 21:21 | XMS_ITS | Encounter Summary ---
[place] [address] Care Team Providers Care Manager Public Name Role Phone Olga [place] APRN Primary Care Provider +1 -[phone] Reason for Referral * Diagnostic Test (Routine) - New Request Specialty Diagnoses / Procedures Referred By Contac t Referred To Contact Radiology Diagnoses Perihepatic abscess Procedures IR Drain Check/Change/Remove Silvio Wheeler MD [facility] DR [place] [address] [place] [address] Referral ID Status Reason Start Date Expiration Date Visits Requested Visits Authorized [id number] New Request Specialty Service Requested 04/21/2024 10/22/2025 1 1 * Diagnostic Test (Routine) - New Request Specialty Diagnoses / Procedures Referred By Contac t Referred To Contact Radiology Diagnoses Perihepatic abscess Duodenal adenocarcinoma Procedures IR Drain Check/Change/Remove Tejas Henao PA [facility] DR [place] [address] [facility] [place] [address] Referral ID Status Reason Start Date Expiration Date Visits Requested Visits Authorized [id number] New Request Specialty Service Requested 04/09/2024 10/10/2025 1 1 Reason for Visit * Diagnostic Test (Routine) - New Request Specialty Diagnoses / Procedures Referred By Janak holland Referred To Contact Radiology Diagnoses Perihepatic abscess Duodenal adenocarcinoma Procedures IR Drain Check/Change/Remove Tejas Henao PA [facility] DR [place]ION[place] [address] [facility] [place] [address] Referral ID Status Reason Start Date Expiration Date Visits Requested Visits Authorized [id number] New Request Specialty Service Requested 04/09/2024 10/10/2025 1 1 Encounter Details Date Type Department Care Team (Latest Contact Info) Description 04/21/2024 10:13 AM EDT - 04/21/2024 11:59 PM EDT Hospital [place] [address] Juan Wright MD [facility] INTERVENT[place] [address] Perihepatic abscess; Duodenal adenocarcinoma Discharge Disposition: Home Social History Tobacco Use Types Packs/Day Years Used Date Smoking Tobacco: Never Smokeless Tobacco: Never Alcohol Use Standard Drinks/Week Comments Not Currently 0 (1 standard drink = 0.6 oz pur e alcohol) [facility] Utilities Answer Date Recorded In the past 12 months has [employer], gas, oil, or water [employer] threatened to shut off services in your [...] is during regular office hours, please call [phone]. If it is after regular office hours, or on weekends or holidays, please call [phone] and ask to speak to the Deliver Driver catering operations manager for Interventional Radiology. XX You have received [...] Sig Dispensed Refills Start Date End Date nfgdqn-elfkuuea-algnq se (Zenpep) 40,000-126,000- 168,[address] capsule [...] 2 times daily. 30 tablet 03/08/2024 Insulin [place], Disposable, (BD Ultra-Fine Micro Pen Needle) 32 gauge x 1/4 Needle 1 each by [facility]Non-Drug; Combo Route) [...] of : 1975 AGE: 48 y.o. Address: [facility] [address] [facility] [address] (home) [phone] (work) Mobile: Telephone Information: Referring Provider: Tejas Henao REASON FOR VISIT: Order Questions Answers Where will study be performed? [facility] Radiology [120] To be scheduled [...] documented in this encounter H&P Notes * [place], Latonia E, PA - 04/12/2024 11:19 AM [...] Questions Answers Where will study be performed? [facility] Radiology [120] To be scheduled [...] Prior to Encounter Medication Sig Dispense Refill weqzbp-wxzwrpdx-bnhyzmd (Zenpep) 40,000-126,000- 168,[address] capsule Take [...] 2 times daily. 30 tablet 0 Insulin [place], Disposable, (BD Ultra-Fine Micro Pen Needle) 32 gauge x 1/4 Needle 1 each by [facility]Non-Drug; Combo Route) [...] 03/25/2024 CT Guided Drain Pancreatic/Peripancreatic Joe Quintero, [facility] RAD CT SCAN IR BIOPSY LIVER PERCUTANEOUS - NON-FOCAL PARENCHYMA 01/07/2023 IR Biopsy Liver Percutaneous 01/07/2023 Juan Wright MD [facility] INTERVENTIONL RAD IR DRAIN CHECK/CHANGE/REMOVE 04/08/2024 IR Drain Check/Change/Remove 04/08/2024 Juan Wright MD [facility] INTERVENTIONL RAD PRO PART REMV PANC, PROX+REMV DUOD+ANAST N/A 03/01/2024 @NUVIAIPPLE PROCEDURE (WRVU 52.84) performed by Rudi Hernandez MD at [facility] MAIN OR PRO TRANSFER SKIN PEDICLE FLAP N/A 03/01/2024 TRANSFER, INTERMEDIATE, ANY PEDICLE FLAP, ANY LOCATION (WRVU 4.77) performed by Rudi Hernandez MD at [facility] MAIN OR Social History and [...] AM EDT Office Visit Hematology/Oncology at [address] [phone] Rodriguez Fowler MD [facility] [place] [address] Sherry Cedillo, [address] HEMATOLOGY [place] [address] 06/11/2024 10:00 AM EDT Infusion Hematology Oncology at [address] [phone] 06/25/2024 9:30 AM EDT Office Visit Hematology/Oncology at [address] [phone] Rodriguez Fowler MD [facility] [place] [address] [address] HEMATOLOGY AND ONCOLOGY [place], [place] [address] 06/25/2024 10:00 AM EDT Infusion Hematology Oncology at [address] [phone] documented as of this encounter Procedures Procedure [...] barrier technique was used throughout. ?? Senior Games Technician fluoroscopic images were obtained. ??Contrast was injected [...] between bowel and catheter.) Resident/Fellow: None. Attending: I, Dr. Wheeler performed this procedure. ? Juan Wright [...] mLs documented in this encounter Care Teams Manager Public Relationship Specialty Start Date End Date Olga Hoffman APRN [address] [place] [address] PCP - General Family Medicine 10/30/22 documented as of this encounter
--- OUTSIDE RECORDS SUMMARY | 2024-05-31 21:22 | XMS_ITS | Encounter Summary ---
Author Organization [facility] [place] [address] Care Team Providers Care Stem Assembler Name Role Phone Olga [place] APRN Primary Care Provider +1 -[phone] Encounter Details Date Type Department Care Team (Late st Contact Info) Description 03/19/2024 Telephone [place] [address] Jaki Pantoja RN Social History [...] living in a half-way (including now)? No 03/02/2024 DH IPV Inpatient [...] sent a picture of the incision [facility]. I reassured her that the incision [...] 9:30 AM EDT Office Visit Hematology/Oncology at [address] [phone] Rodriguez Fowler MD [facility] [place] [address] Sherry Cedillo [address] HEMATOLOGY AND ONCOLOGY [place], [place] [address] 06/11/2024 10:00 AM EDT Infusion Hematology Oncology at [address] [phone] 06/25/2024 9:30 AM EDT Office Visit Hematology/Oncology at [address] [phone] Rodriguez Fowler MD [facility] [place] [address] Sherry Cedillo [address] HEMATOLOGY AND ONCOLOGY [place], [place] [phone] 06/25/2024 10:00 AM EDT Infusion Hematology Oncology at [address] [phone] documented as of this encounter Visit Diagnoses Not on filedocumented in this encounter Care Teams Stem Assembler Relationship Specialty Start Date End Date Olga Hoffman APRN [address] [place] [address] PCP - General Family Medicine 10/30/22 documented as of this encounter
--- OUTSIDE RECORDS SUMMARY | 2024-05-31 21:22 | XMS_ITS | Encounter Summary ---
Author Organization [facility] Address [facility] [place] [address] Care Team Providers Care Plastics Scientist Name Role Phone Olga [place] APRN Primary Care Provider +1 -[phone] Encounter Details Date Type Department Care Team (Late st Contact Info) Description 03/24/2024 7:50 PM EDT Ancillary Procedure Radiology Library at [facility] [place] [address] Rudi Hernandez MD [facility] [place] [address] Social History Tobacco Use Types Packs/Day Years Used Date Smoking Tobacco: Never Smokeless Tobacco: Never Alcohol Use Standard Drinks/Week Comments Not Currently 0 (1 standard drink = 0.6 oz pur e alcohol) [facility] Utilities Answer Date Recorded In the past 12 months has [facility] [employer], gas, oil, or water [employer] threatened to shut off services in your [...] 9:30 AM EDT Office Visit Hematology/Oncology at [address] [phone] Rodriguez Fowler MD [facility] [place] [address] Sherry Cedillo APRN [address] [place] [address] DR HEMATOLOGY AND ONCOLOGY [place], [place] [address] 06/11/2024 10:00 AM EDT Infusion Hematology Oncology at [address] [phone] 06/25/2024 9:30 AM EDT Office Visit Hematology/Oncology at [address] [phone] Rodriguez Fowler MD [facility] [place] [place] [address] Sherry Cedillo APRN [address] [place] [address] DR HEMATOLOGY AND ONCOLOGY [place], [place] [phone] 06/25/2024 10:00 AM EDT Infusion Hematology Oncology at [address] [phone] documented as of this encounter Procedures Procedure Name Priority Date/Time Associated Diagnosis Comments REQUEST FOR 2ND READ CT ABDOMEN AND PELVIS Routine 03/24/2024 7:48 PM EDT documented in this encounter Results * Request For 2nd Read CT Abdomen & Pelvis (03/24/2024 7:48 PM EDT) Pathologist [employer] WORKSTATION ID [id number] RAD Anatomical Region Laterality Modality Abdomen, Pelvis [...] who have questions please contact the health livestock caretaker that requested your imaging first. ? Electronically signed by: Ilana Mirza MD, [facility] ([phone]), at 03/25/2024 9:19 AM Narrative 03/25/2024 9:19 AM EDT EXAMINATION: REQUEST FOR 2ND READ CT ABDOMEN AND PELVIS CLINICAL HISTORY: s/p Whipple w/ po intolerance, leukocytosis, tachycardia, hypoT - c/f acute findings, ?fluid collection or abscess; Sending Institution [facility]; Date of exam 20240324; I believe [...] c/f acute findings, ?fluid collection or abscess; [facility]; Date of exam 20240324; I believe [...] [place] hepatis measures 4 x 3.6 cm ( image 28). GALLBLADDER/BILIARY TREE: Status post cholecystectomy. [...] patients who have questions please contactthe health livestock caretaker that requested your imaging first. Electronically signed by: Ilana Mirza MD, [facility]([phone]), at 03/25/2024 9:19 AM Rudi Hernandez MD IMG OUTSIDE INTERPRE TATION ORDERABLES documented in this encounter Visit Diagnoses Not on filedocumented in this encounter Care Teams Plastics Scientist Relationship Specialty Start Date End Date Olga Hoffman APRN [address] [place] [address] PCP - General Family Medicine 10/30/22 documented as of this encounter
--- OUTSIDE RECORDS SUMMARY | 2024-05-31 21:22 | XMS_ITS | Encounter Summary ---
Author Organization [facility] Address [facility] [place] [address] Care Team Providers Care Rodeo Rider Name Role Phone Olga Hoffman APRN Primary Care Provider +1 [phone] Encounter Details Date Type Department Care Team (Late st Contact Info) Description 03/24/2024 10:30 AM EDT Telephone Hematology [place] [address] Donna Dewey, RD [facility] RADIATION [place] [address] Social History Tobacco Use Types Packs/Day Years Used Date Smoking Tobacco: Never Smokeless Tobacco: Never Alcohol Use Standard Drinks/Week Comments Not Currently 0 (1 standard drink = 0.6 oz pur e alcohol) [facility] Utilities Answer Date Recorded In the past 12 months has [employer], gas, oil, or water [employer] threatened to shut off services in your [...] in a retirement (including now)? 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 Also inquired of gen neurosurgical nurse if they can please help with ensuring he is able to get prescription for ZenPEP at his pharmacy. Continued close f/u. documented in this encounter Plan of Treatment Upcoming Encounters Date Type Department Care Team (Late st Contact Info) Description 06/11/2024 9:30 AM EDT Office Visit Hematology/Oncology at [address] [phone] Rodriguez Fowler MD [facility] [place] [address] Sherry Cedillo APRN [address] [place] [address] DR HEMATOLOGY AND ONCOLOGY [place], [place] [address] 06/11/2024 10:00 AM EDT Infusion Hematology Oncology at [address] [phone] 06/25/2024 9:30 AM EDT Office Visit Hematology/Oncology at [address] [phone] Rodriguez Fowler MD [facility] [place] [address] Sherry Cedillo APRN [address] [place] [address] DR HEMATOLOGY AND ONCOLOGY [place], [place] [phone] 06/25/2024 10:00 AM EDT Infusion Hematology Oncology at [address] [phone] documented as of this encounter Visit Diagnoses Not on filedocumented in this encounter Care Teams Rodeo Rider Relationship Specialty Start Date End Date Olga Hoffman APRN [address] [place] [address] PCP - General Family Medicine 10/30/22 documented as of this encounter
--- OUTSIDE RECORDS SUMMARY | 2024-05-31 21:22 | XMS_ITS | Encounter Summary ---
Author Organization [facility] [place] [address] Care Team Providers Care Rn Otolaryngology Name Role Phone Olga Hoffman APRN Primary Care Provider +1 [phone] Encounter Details Date Type Department Care Team (Late st Contact Info) Description 03/24/2024 [place] [phone] [facility] [place] [address] Social History Tobacco Use Types Packs/Day Years Used Date Smoking Tobacco: Never Smokeless Tobacco: Never Alcohol Use Standard Drinks/Week Comments Not Currently 0 (1 standard drink = 0.6 oz pur e alcohol) [facility] Utilities Answer Date Recorded In the past 12 months has [facility] [employer], gas, oil, or water [employer] threatened to shut off services in your [...] a senior living (including now)? No 03/25/2024 IPV Inpatient Questions [...] procedure for duodenal carcinoma. Patient presented to [facility] with sepsis and is pending transfer to [facility] for further treatment and medical optimization. Remainder [...] Prior to Visit Medication Sig Dispense Refill ipsiis-hqhhurug-iknjdbl (Zenpep) 40,000-126,000- 168,[address] capsule Take [...] covered by insurance 15 mL 3 Insulin Olympia, Disposable, (BD Ultra-Fine Micro Pen Needle) 32 gauge x 1/4 Needle 1 each by [facility].(Non-Drug; Combo Route) route 2 times daily. 300 [...] MD at [facility] OR Social history and habits: [...] AM EDT Office Visit Hematology/Oncology at [address] [phone] Rodriguez Fowler MD [facility] [place] [address] Sherry Cedillo, [address] HEMATOLOGY AND ONCOLOGY [place], [place] [address] 06/11/2024 10:00 AM EDT Infusion Hematology Oncology at [address] [phone] 06/25/2024 9:30 AM EDT Office Visit Hematology/Oncology at [address] [phone] Rodriguez Fowler MD [facility] [place] [address] [address] HEMATOLOGY AND ONCOLOGY [place], [place] [address] 06/25/2024 10:00 AM EDT Infusion Hematology Oncology at [address] [phone] documented as of this encounter Visit Diagnoses Not on filedocumented in this encounter Care Teams Rn Otolaryngology Relationship Specialty Start Date End Date Olga Hoffman APRN [address] [place] [address] PCP - General Family Medicine 10/30/22 documented as of this encounter
--- OUTSIDE RECORDS SUMMARY | 2024-05-31 21:22 | XMS_ITS | Encounter Summary ---
Author Organization [facility] Address [facility] [place] [address] Care Team Providers Care Program Architect Name Role Phone Olga Hoffman APRN Primary Care Provider +1 [phone] Encounter Details Date Type Department Care Team (Late st Contact Info) Description 03/24/2024 5:30 PM EDT Ancillary Procedure Radiology Library at [facility] [place] [address] Rudi Hernandez MD [facility] [place] [address] Social History Tobacco Use Types Packs/Day Years Used Date Smoking Tobacco: Never Smokeless Tobacco: Never Alcohol Use Standard Drinks/Week Comments Not Currently 0 (1 standard drink = 0.6 oz pur e alcohol) [facility] Utilities Answer Date Recorded In the past 12 months has [facility] [employer], gas, oil, or water [email or web address] threatened to shut off services in your [...] No 03/25/2024 Housing Stability Vital Sign Answer Alxeander e Recorded In the last 12 months, [...] 9:30 AM EDT Office Visit Hematology/Oncology at [address] [phone] Rodriguez Fowler MD [facility] [place] [address] Sherry Cedillo APRN [address] [place] [address] DR HEMATOLOGY AND ONCOLOGY [place], [place] [address] 06/11/2024 10:00 AM EDT Infusion Hematology Oncology at [address] [phone] 06/25/2024 9:30 AM EDT Office Visit Hematology/Oncology at [address] [phone] Rodriguez Fowler MD [facility] [place] [address] Sherry Cedillo APRN [address] [place] [address] DR HEMATOLOGY AND ONCOLOGY [place], [place] [phone] 06/25/2024 10:00 AM EDT Infusion Hematology Oncology at [address] [phone] documented as of this encounter Procedures Procedure Name Priority Date/Time Associated Diagnosis Comments FILM LIBRARY STORAGE ONLY CT CHEST ABDOMEN PELVIS Routine 03/24/2024 5:27 PM EDT documented in this encounter Results * Film Library- Storage Only CT Chest Abdomen Pelvis (03/24/2024 5:27 PM EDT) Narrative [facility] - 03/24/2024 5:27 PM EDT This exam is auto-finalizing. It's purpose is for storage only. Rudi Hernandez MD IMG FILM LIBRARY ORD ERABLES [place], [place] documented in this encounter Visit Diagnoses Not on filedocumented in this encounter Care Teams Program Architect Relationship Specialty Start Date End Date Olga Hoffman APRN [address] [place] [address] PCP - General Family Medicine 10/30/22 documented as of this encounter
--- OUTSIDE RECORDS SUMMARY | 2024-05-31 21:22 | XMS_ITS | Encounter Summary ---
[place] [address] Care Team Providers Care Inspector Cold Working Name Role Phone Olga Hoffman APRN Primary Care Provider +1 -[phone] Encounter Details Date Type Department Care Team (Late st Contact Info) Description 03/26/2024 Telephone [place] [address] Gina Marie, RN Social History Tobacco Use Types Packs/Day Years Used Date Smoking Tobacco: Never Smokeless Tobacco: Never Alcohol Use Standard Drinks/Week Comments Not Currently 0 (1 standard drink = 0.6 oz pur e alcohol) [facility] Utilities Answer Date Recorded In [...] authorization was not needed. I called [employer] and confirmed they were able to run this and fill a 30 day supply with zero dollar co-pay. I left my name and number to call with any questions. documented in this encounter Plan of Treatment Upcoming Encounters Date Type Department Care Team (Late st Contact Info) Description 06/11/2024 9:30 AM EDT Office Visit Hematology/Oncology at [address] [phone] Rodriguez Fowler MD [facility] [place] [address] Sherry Cedillo [address] HEMATOLOGY AND ONCOLOGY [place], [place] [address] 06/11/2024 10:00 AM EDT Infusion Hematology Oncology at [address] [phone] 06/25/2024 9:30 AM EDT Office Visit Hematology/Oncology at [address] [phone] Rodriguez Fowler MD [facility] [place] [address] Sherry Cedillo [address] HEMATOLOGY AND ONCOLOGY [place], [place] [id number] 06/25/2024 10:00 AM EDT Infusion Hematology Oncology at [address] [phone] documented as of this encounter Visit Diagnoses Not on filedocumented in this encounter Care Teams Inspector Cold Working Relationship Specialty Start Date End Date Olga Hoffman APRN [address] [place], [place] [address] PCP - General Family Medicine 10/30/22 documented as of this encounter
--- OUTSIDE RECORDS SUMMARY | 2024-05-31 21:22 | XMS_ITS | Encounter Summary ---
Author Organization [facility] [place] [address] Care Team Providers Care Second Cook And Baker Name Role Phone Olga Hoffman APRN Primary Care Provider +1 [phone] Encounter Details Date Type Department Care Team (Latest Contact Info) Description 03/20/2024 Multidisciplinary Ca re Committee [place] [phone] Rudi Hernandez MD [facility] [place] [address] Social History Tobacco Use Types Packs/Day Years Used Date Smoking Tobacco: Never Smokeless Tobacco: Never Alcohol Use Standard Drinks/Week Comments Not Currently 0 (1 standard drink = 0.6 oz pur e alcohol) [facility] Utilities Answer Date Recorded In the past 12 months has [facility] [employer], gas, oil, or water [employer] threatened to shut off services in your [...] any time in the past 12 m [facility], were you homeless or living in a [...] AM EDT Office Visit Hematology/Oncology at [address] [phone] Rodriguez Fowler MD [facility] [place] [address] Sherry Cedillo APRN [address] [place] [address] HEMATOLOGY AND ONCOLOGY [place], [place] [address] 06/11/2024 10:00 AM EDT Infusion Hematology Oncology at [address] [phone] 06/25/2024 9:30 AM EDT Office Visit Hematology/Oncology at [address] [phone] Rodriguez Fowler MD [facility] [address] Sherry Cedillo APRN [address] [place] [address] DR HEMATOLOGY AND ONCOLOGY [place], [place] [address] 06/25/2024 10:00 AM EDT Infusion Hematology Oncology at [address] [phone] documented as of this encounter Visit Diagnoses Not on filedocumented in this encounter Care Teams Second Cook And Baker Relationship Specialty Start Date End Date Olga Hoffman APRN [address] [place] [address] PCP - General Family Medicine 10/30/22 documented as of this encounter
--- OUTSIDE RECORDS SUMMARY | 2024-05-31 21:22 | XMS_ITS | Encounter Summary ---
[place] [address] Care Team Providers Care Fashion Consultant Name Role Phone Olga Hoffman APRN Primary Care Provider +1 -[phone] Encounter Details Date Type Department Care Team (Late st Contact Info) Description 03/24/2024 Telephone [place] [address] Gina Marie, RN Social History Tobacco Use Types Packs/Day Years Used Date Smoking Tobacco: Never Smokeless Tobacco: Never Alcohol Use Standard Drinks/Week Comments Not Currently 0 (1 standard drink = 0.6 oz pur e alcohol) [facility] Utilities Answer Date Recorded In [...] questions. I will also send him a [employer] message as well. Addendum at 17:52: Several attempts made to initiate prior authorization via covermymeds with errormessages,Patient inactive and No matching patient. I will follow up with him to verify insurance tomorrow. documented in this encounter Plan of Treatment Upcoming Encounters Date Type Department Care Team (Late st Contact Info) Description 06/11/2024 9:30 AM EDT Office Visit Hematology/Oncology at [address] [phone] Rodriguez Fowler MD [facility] [place] [address] Sherry Cedillo [address] HEMATOLOGY AND ONCOLOGY [place], [place] [phone] 06/11/2024 10:00 AM EDT Infusion Hematology Oncology at [address] [phone] 06/25/2024 9:30 AM EDT Office Visit Hematology/Oncology at [address] [phone] Rodriguez Fowler MD [facility] [place] [address] [address] HEMATOLOGY AND ONCOLOGY [place], [place] [address] 06/25/2024 10:00 AM EDT Infusion Hematology Oncology at [address] [phone] documented as of this encounter Visit Diagnoses Not on filedocumented in this encounter Care Teams Fashion Consultant Relationship Specialty Start Date End Date Olga Hoffman APRN [address] [place] [address] PCP - General Family Medicine 10/30/22 documented as of this encounter
--- OUTSIDE RECORDS SUMMARY | 2024-05-31 21:22 | XMS_ITS | Encounter Summary ---
Author Organization [facility] [place] [address] Care Team Providers Care Assistant Professor Of Drama Name Role Phone Olga Hoffman APRN Primary Care Provider +1 -[phone] Reason for Referral * Consultation (Routine) - Closed Specialty Diagnoses / Procedures Referred By Contnina t Referred To Contact Hematology and Oncology Diagnoses Duodenal adenocarcinoma Carine Hernandez MD [facility] [place] [address] [facility] On[facility] [address] [place] [address] Referral ID Status Reason Start Date Expiration Date V isits Requested Visits Authorized [id number] Closed Consult, Test & Treat 03/11/2024 03/11/2025 1 1 Reason for Visit * Reason Comments Follow-up Encounter Details Date Type Department Care Team (Latest Contact Info) Description 03/17/2024 10:00 AM EDT Office [place] [address] Carine Hernandez MD [facility] [place] [place] [address] Duodenal adenocarcinoma Social History Tobacco Use Types [...] any time in the past 12 m [facility], were you homeless or living in a detention (including now)? No 03/02/2024 IPV Inpatient Questions [...] Nick is now 2 weeks postop from [place]. He has been home for over a [...] AM EDT Office Visit Hematology/Oncology at [address] [phone] Rodriguez Fowler MD [facility] [place] [address] [address] HEMATOLOGY AND ONCOLOGY [place], [place] [address] 06/11/2024 10:00 AM EDT Infusion Hematology Oncology at [address] [phone] 06/25/2024 9:30 AM EDT Office Visit Hematology/Oncology at [address] [phone] Rodriguez Fowler MD [facility] [place] [address] [address] HEMATOLOGY AND ONCOLOGY [place], [place] [address] 06/25/2024 10:00 AM EDT Infusion Hematology Oncology at [address] [phone] Scheduled Referrals Name Type Priority Associated Diagnoses Orde r Schedule Referral to Hematology and Oncology Outpatient Referral Routine Duodenal adenocarcinoma Ordered: 03/11/2024 documented as of this encounter Visit Diagnoses Diagnosis Duodenal adenocarcinoma Malignant neoplasm of duodenum documented in this encounter Care Teams Assistant Professor Of Drama Relationship Specialty Start Date End Date Olga Hoffman APRN [address] [place] [address] PCP - General Family Medicine 10/30/22 documented as of this encounter
--- OUTSIDE RECORDS SUMMARY | 2024-05-31 21:22 | XMS_ITS | Encounter Summary ---
Author Organization [facility] Address [facility] [place] [address] Care Team Providers Care Child Adolescent Psychiatrist Name Role Phone Olga Hoffman APRN Primary Care Provider +1 -[phone] Encounter Details Date Type Department Care Team (Late st Contact Info) Description 03/17/2024 10:30 AM EDT Clinical Support [place] [address] Donna Dewey, RD [facility] [place] [address] Duodenal cancer Social History Tobacco Use Types Packs/Day Years Used Date Smoking Tobacco: Never Smokeless Tobacco: Never Alcohol Use Standard Drinks/Week Comments Not Currently 0 (1 standard drink = 0.6 oz pur e alcohol) [facility] Utilities Answer Date Recorded In the past 12 months has [employer], [employer], oil, or water [employer] threatened to shut off services in your [...] time in the past 12 m [facility], were you homeless or [...] diagnosed duodenal adenocarcinoma who ultimately presented to [facility] on 03/01/24 for Whipple procedure. Operations/Major Procedures: [...] powder and making shakes for him. Using Elim and coconut milk Yesterday-- Am: Coffee with [...] AM EDT Office Visit Hematology/Oncology at [address] [phone] Rodriguez Fowler MD [facility] [address] [address] HEMATOLOGY AND ONCOLOGY [place], [place] [phone] 06/11/2024 10:00 AM EDT Infusion Hematology Oncology at [address] [phone] 06/25/2024 9:30 AM EDT Office Visit Hematology/Oncology at [address] [phone] Rodriguez Fowler MD [facility] [place] [place] [address] [address] HEMATOLOGY AND ONCOLOGY [place], [place] [address] 06/25/2024 10:00 AM EDT Infusion Hematology Oncology at [address] [phone] documented as of this encounter Visit Diagnoses Diagnosis Duodenal cancer Malignant neoplasm of duodenum documented in this encounter Care Teams Child Adolescent Psychiatrist Relationship Specialty Start Date End Date Olga Hoffman APRN [address] [place] [address] PCP - General Family Medicine 10/30/22 documented as of this encounter
--- OUTSIDE RECORDS SUMMARY | 2024-05-31 21:22 | XMS_ITS | Encounter Summary ---
Author Organization [facility] [place] [address] Care Team Providers Care Scouring Machine Tender Name Role Phone Olga Hoffman APRN Primary Care Provider +1 -[phone] Encounter Details Date Type Department Care Team (Late st Contact Info) Description 03/22/2024 Orders [place] [address] Rudi Hernandez MD [facility] [place] [address] Duodenal adenocarcinoma; H/O Whipple procedure Social History Tobacco Use Types Packs/Day Years Used Date Smoking Tobacco: Never Smokeless Tobacco: Never Alcohol Use Standard Drinks/Week Comments Not Currently 0 (1 standard drink = 0.6 oz pur e alcohol) [facility] Utilities Answer Date Recorded In the past 12 months has [employer], gas, oil, or water [employer] threatened to shut off services in your [...] any time in the past 12 m [facility], were you homeless or living in a usp (including now)? No 03/02/2024 DH IPV Inpatient [...] AM EDT Office Visit Hematology/Oncology at [address] [phone] Rodriguez Fowler MD [facility] [place] [address] Sherry Cedillo APRN [address] [place] [address] DR HEMATOLOGY AND ONCOLOGY [place], [place] [address] 06/11/2024 10:00 AM EDT Infusion Hematology Oncology at [address] [phone] 06/25/2024 9:30 AM EDT Office Visit Hematology/Oncology at [address] [phone] Rodriguez Fowler MD [facility] [place] [address] Sherry Cedillo APRN [address] [place] [address] DR HEMATOLOGY AND ONCOLOGY [place], [place] [id number] 06/25/2024 10:00 AM EDT Infusion Hematology Oncology at [address] [phone] documented as of this encounter Visit Diagnoses Diagnosis 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
--- OUTSIDE RECORDS SUMMARY | 2024-05-31 21:22 | XMS_ITS | Encounter Summary ---
Author Organization [facility] Address [facility] [place] [address] Care Team Providers Care Esl Professor Name Role Phone Olga Hoffman APRN Primary Care Provider +1 -[phone] Encounter Details Date Type Department Care Team [...] a skilled nursing (including now)? No 03/02/2024 DH IPV Inpatient [...] AM EDT Office Visit Hematology/Oncology at [address] [phone] Rodriguez Fowler MD [facility] [place] [address] Sherry Cedillo APRN [address] [place] [address] DR HEMATOLOGY AND ONCOLOGY [place], [place] [address] 06/11/2024 10:00 AM EDT Infusion Hematology Oncology at [address] [phone] 06/25/2024 9:30 AM EDT Office Visit Hematology/Oncology at [address] [phone] Rodriguez Fowler MD [facility] [place] [place] [address] Sherry Cedillo APRN [address] [place] [address] DR HEMATOLOGY AND ONCOLOGY [place], [place] [phone] 06/25/2024 10:00 AM EDT Infusion Hematology Oncology at [address] [phone] documented as of this encounter Visit Diagnoses Not on filedocumented in this encounter Care Teams Esl Professor Relationship Specialty Start Date End Date Olga Hoffman APRN [address] [place] [address] PCP - General Family Medicine 10/30/22 documented as of this encounter
--- OUTSIDE RECORDS SUMMARY | 2024-05-31 21:22 | XMS_ITS | Encounter Summary ---
Author Organization [facility] [place] [address] Care Team Providers Care Band Manager Name Role Phone Olga Hoffman APRN Primary Care Provider [phone] Reason for Referral * Diagnostic Test (Routine) - New Request Specialty Diagnoses / Procedures Referred By Contac t Referred To Contact Radiology Diagnoses Perihepatic abscess Duodenal adenocarcinoma Procedures IR Drain Check/Change/Remove Tejas Henao PA [facility] [place] [address] [place] [address] Referral ID Status Reason Start Date Expiration Date Visits Requested Visits Authorized [id number] New Request Specialty Service Requested 04/09/2024 10/10/2025 1 1 * Home Health Care (Routine) - Pending Review Specialty Diagnoses / Procedures Referred By Contac t Referred To Contact Diagnoses Perihepatic abscess Chalino Cristina MD [facility] [place] [address] [facility] [place] [address] [place] [address] Referral ID Status Reason Start Date Expiration Date Visits Requested Visits Authorized [id number] Pending Review Consult, Test & Treat 04/01/2024 09/28/2024 999 999 * Diagnostic Test (Routine) - New Request Specialty Diagnoses / Procedures Referred By Janak holland Referred To Contact Radiology Diagnoses Perihepatic abscess Duodenal adenocarcinoma Obesity due to excess calories with serious comorbidity, unspecified classification Procedures IR Drain Check/Change/Remove Joe Quintero DO [facility] [place] [address] [facility] [place] [address] Referral ID Status Reason Start Date Expiration Date Visits Requested Visits Authorized [id number] New Request Specialty Service Requested 03/25/2024 09/25/2025 1 1 Reason for Visit * Auth/Cert (Routine) Specialty Diagnoses / Procedures Referred By Janak holland Referred To Contact Diagnoses Perihepatic abscess abscess Procedures EMERGENCY IPI Rudi Hernandez MD [facility] [place] [address] [facility] Referral ID Status Reason Start Date Expiration Date Visits Re quested Visits Authorized [id number] 1 1 Encounter Details Date Type Department Care Team (Latest Contact Info) Description 03/24/2024 9:11 PM EDT - 04/01/2024 3:24 PM EDT Hospital Encounter Surgical Unit Level 4 [place] [id number] Rudi Hernandez MD [facility] [place] [address] Perihepatic abscess; Duodenal adenocarcinoma; Obesity due to excess calories with serious comorbidity, unspecified classification; Severe protein-calorie malnutrition Discharge Disposition: Home with VNA Social History Tobacco Use Types Packs/Day Years Used Date Smoking Tobacco: Never Smokeless Tobacco: Never Alcohol Use Standard Drinks/Week Comments Not Currently 0 (1 standard drink = 0.6 oz pur e alcohol) [facility] Utilities Answer Date Recorded In the [...] any time in the past 12 m [facility], were you homeless or living [...] s/p Whipple on 03/01 who presents to [facility] on 03/24 for new peripancreatic abscess on [...] last admission. He initially presented to [facility] and was transferred here for further [...] Hospital Course: Charles Nick was admitted to [facility] on 03/24/2024 as a direct-admit from [facility]. His complete hospital course is detailed [...] Discharge Plans: Discharge to: Home VNA: Yes [facility] [address] [address] Discharge Conditions/Prognosis: Stable Discharge Medications: The following [...] route 2 times daily. Generic drug: Insulin Rozel (Disposable) 1 each Quantity: 300 each Refills: [...] and 1 capsule with snacks. Generic drug: zxohug-tpiaeqmn-qftlurg 2 capsule Quantity: 300 capsule Refills: 3 [...] DRAPER 04/08/2024 9:30 AM Rudi Hernandez MD [facility] SURG [facility] 04/08/2024 10:[address] [facility] SURG [facility] 04/08/2024 12:10 PM [facility] IR ROOM [address] [facility] Rad 04/20/2024 11:00 AM Rodriguez Fowler MD [facility] HEM ONC [facility] 05/21/2024 9:00 AM Nighat López MD [facility] ENDO [facility] Outpatient Services/Studies: IR Drain Check/Change/Remove Standing Status: Future Standing Exp. Date: 07/26/24 Question Response Notes Where will study be performed? [facility] Radiology [120] To be scheduled Next [...] Referred to Provider: [facility] [place] Number of Visits Requested: 999 Instructions Given to Patient at Discharge:. An After Visit Summary was printed and given to the patient. Patient Instructions [facility] Department of Surgical Oncology Discharge Instructions [...] Your skin incision(s) is closed with: [] [place] - Your edd have been removed and [...] with the Surgery nurses. The number is [phone]. - During the night or weekends call the [facility] accounting machine operator at [phone] and ask to speak to the surgery resident composition weatherboard installer for general surgery. Please note: Your surgeon may not be Nuclear Power Reactor Operator, especially during the night or on weekends, so be ready to describe yourself and your surgery when you call. Follow up appointments: Future Appointments Date Time Provider Department Center 04/08/2024 12:10 PM [facility] IR ROOM [address] [facility] Rad 04/08/2024 1:30 PM Rudi Hernandez MD [facility] SURG [facility] 04/08/2024 2:[address] [facility] SURG [facility] 04/20/2024 11:00 AM Rodriguez Fowler MD [facility] HEM ONC [facility] 05/21/2024 9:00 AM Nighat López MD [facility] ENDO [facility] [x] Follow-up appointment with General Surgery has already been scheduled [x] A follow-up appointment with your PCP has been scheduled for Friday04/14/24 @ 10AM - please discuss going back on Metformin at this appointment. If you need a prior authorization, please call the General Surgery Clinic nurses [phone] for prior authorizations assistance General Instructions INTERVENTIONAL [...] is during regular office hours, please call [phone]. If it is after regular office hours, or on weekends or holidays, please call [phone] and ask to speak to the Superintendent Meter Tests composition weatherboard installer for Interventional Radiology. XX You have received [...] drain; in 24 hours) Social Work Resources [facility] may be able to assist with caregiver support and care services. Highly recommend that you give them a call to discuss how they can support with needs after discharge. [facility] [place] [facility] [place] [address] [place] [address], [address] (view mapfor [facility] [place]) [phone] Toll Free Helpline [phone] Administrative [phone] FAX [email or web address] Diabetes Discharge Instructions & Recommendations Check your [...] 8:45 AM LAB, THREE L Lab 3L [facility] Arrive at: Long Term Care Social Worker Area 3L [phone] 04/08/2024 9:30 AM Rudi Hernandez MD General Surgery at [facility] Arrive at: Long Term Care Social Worker Area 4L [phone] Please dispose of unused excess opioids before your appointment or bring them with you to the appointment and we will help you dispose of them correctly. 04/08/2024 10:[address] General Surgery at [facility] Arrive at: Long Term Care Social Worker Area 4L [phone] 04/08/2024 12:10 PM [facility] IR ROOM 1 Radiology at [facility] Arrive at: 3 RADIOLOGY [phone] Please expect a call from a radiology nurse within 3 days of your exam, you will need to follow theinstructions given at that time. 04/20/2024 11:00 AM Rodriguez Fowler MD Hematology and Oncology at [facility] Arrive at: Long Term Care Social Worker Area 3K [phone] 05/21/2024 9:00 AM Nighat López MD; [facility] ENDOCRINOLOGY PRECEPTOR Endocrinology at [facility] Arrive at: Long Term Care Social Worker Area 3A [phone] Future Orders Complete By Expires Amylase Level Body Fluid [OTZ980 Custom] 04/08/2024 10/08/2024 Process Instructions: Scheduling Instructions: Comments: Questions: Specimen Type: BASIA Drain CBC (with Diff) [[id number] Custom] 04/08/2024 04/01/2025 Process Instructions: INCLUDES: WBC, RBC, Hgb, Hct, Platelets, RBC Indices and Differential Scheduling Instructions: Comments: Questions: Comprehensive metabolic panel (non-fasting) [LAB17 Custom] 04/08/2024 (Approximate) 04/01/2025 Process Instructions: INCLUDES: Calcium, T Protein, Albumin, AST, ALT, Alk Phos, T Bili, BUN, Creat, GFR, Glucose, Lytes. Scheduling Instructions: Comments: Questions: IR Drain Check/Change/Remove [[id number] Custom] 04/08/2024 07/26/2024 Process Instructions: Scheduling Instructions: Comments: Questions: Where will study be performed?: [facility] Radiology To be scheduled: Next available [...] to Home Health. [address] [facility] [address] (home) [phone] (work) Date of : 1975 Inpatient DOCUMENTATION FOR VNA SERVICES (INCLUDING THOSE PATIENTS WITH MEDICARE COVERAGE REQUIRING HOME VNA SERVICES AND/OR HOSPICE SERVICES) PATIENT'S LOCATION: Charles Nick [address] [facility] [address] (home) Cell: Telephone Information: Peanut Roaster's Name: Spouse In discussion with the attending physician, it is certified that this patient is under their care and that they, or a Nurse Practitioner, Clinical Nurse specialist or Physician Caretaker Grounds who is working directly with them, had [...] program if appropriate. HOME HEALTH CARE AGENCY: [facility] [address] [place] [address] START OF CARE: within 24-48 hours of [...] patient's PCP: Olga Hoffman APRN [address] [facility] [address] . All VNA agencies [...] drain check 04/08 CC: Olga Hoffman APRN [phone] Signed: Chalino Cristina MD Surgical Oncology Service Team Pager #[phone] 04/01/2024 2:21 PM For questions regarding this document or issues relating to this hospitalization on the Surgical Oncology Service, please contact Rudi Hernandez MD's office at [phone] documented in this encounter Discharge Instructions * [...] is during regular office hours, please call [phone]. If it is after regular office hours, or on weekends or holidays, please call [phone] and ask to speak to the Superintendent Meter Tests composition weatherboard installer for Interventional Radiology. XX You have received [...] drain; in 24 hours) Social Work Resources [facility] may be able to assist with caregiver support and care services. Highly recommend that you give them a call to discuss how they can support with needs after discharge. [facility] [address] [facility], [address] (view mapfor [facility]) [phone] Toll Free Helpline [phone] Administrative [phone] FAX [email or web address] Diabetes Discharge Instructions & Recommendations Check your [...] Cristina MD - 03/29/2024 12:19 PM EDT [facility] Department of Surgical Oncology Discharge Instructions [...] Your skin incision(s) is closed with: [] [place] - Your edd have been removed and [...] with the Surgery nurses. The number is [phone]. - During the night or weekends call the [facility] accounting machine operator at [phone] and ask to speak to the surgery resident composition weatherboard installer for general surgery. Please note: Your surgeon may not be Nuclear Power Reactor Operator, especially during the night or on weekends, so be ready to describe yourself and your surgery when you call. Follow up appointments: Future Appointments Date Time Provider Department Center 04/08/2024 12:10 PM [facility] IR ROOM [address] [facility] Rad 04/08/2024 1:30 PM Rudi Hernandez MD [facility] SURG [facility] 04/08/2024 2:[address] [facility] SURG [facility] 04/20/2024 11:00 AM Rodriguez Fowler MD [facility] HEM ONC [facility] 05/21/2024 9:00 AM Nighat López MD [facility] ENDO [facility] [x] Follow-up appointment with General Surgery has already been scheduled [x] A follow-up appointment with your PCP has been scheduled for Friday04/14/24 @ 10AM - please discuss going back on Metformin at this appointment. If you need a prior authorization, please call the General Surgery Clinic nurses [phone] for prior authorizations assistance documented in this [...] 2 times daily. 30 tablet 03/08/2024 Insulin Rozel, Disposable, (BD Ultra-Fine Micro Pen Needle) 32 gauge x 1/4 Needle 1 each by [facility].(Non-Drug; Combo Route) route 2 times daily. [...] for 6 days. 18 tablet 04/02/2024 04/08/2024 oawuhg-dcesxwzw-goliw se (Zenpep) 40,000-126,000- 168,[address] capsuleIndications:H/ [...] Nick is a 48 y.o. male from [place], [place], with PMH significant for HTN, TIIDM [...] Diet: clear liquids Monitoring: BG Q4 Discharge Planning/retirement diabetes care: Medications - Outpatient treatment regimen [...] coordination with the consulting service. Isidra Hickey, COMB MACHINE OPERATOR, DNP, -[facility] Inpatient Diabetes Management Team Team pager #[phone] Diabetes Discharge Instructions & Recommendations Check your [...] s/p Whipple on 03/01 who presents to [facility] on 03/24 for new peripancreatic fluid collection [...] Services: follow up with outpatient RD (at [facility]) I was able to discuss [...] 1800 03/30/2024 1800 03/29/2024 1800 Adult TPN [[id number]] Adult TPN [[id number]] Adult TPN [[id number]] Order Status Discontinued Completed Completed Last Admin [...] encounter: 119.7 kg (263 lb 14.3 oz). [place] Body Weight (IBW) (kg): 86.36 Wt Readings [...] dc. Pt cites appetite is still low, newspaper writer observed 100% intake of vegetable soup [...] maxillary line): Not assessed Lean Muscle Loss Scientology region (temporalis muscle): Mild Clavicle bone region [...] Nick is a 48 y.o. male from [place], [place], with PMH significant for HTN, TIIDM [...] insulin adjustment for TPN. 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 Isidra Hickey APRN, DNP, -[facility] Inpatient Diabetes Management Team Team pager #[phone] * Chalino Cristina MD - 03/31/2024 9:58 AM EDT Surgical Oncology Inpatient Progress Note Patient Name: Charles FLANAGAN; Age: 4 1975; 48 y.o. Room/Bed: 458/[facility] Today's Date: 03/31/24 ID: Charles Nick is a 48 y.o. 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 Doing much better today, seen by ID yesterday, recs noted. On TPN and tolerating clears. PROBLEM BASED PLANS: - Advance to carb-controlled diet - Place PO ID recommendations Dispo: Floor status Code status: Attempt Cardiopulmonary Resuscitation - Inpatient Signed: Chalino Cristina MD Surgical Oncology Service Team Pager #[phone] 03/31/24 9:59 AM * Jyoti Nelson RN - 03/30/2024 7:44 PM EDT OUTCOME EVALUATION NOTE: OUTCOME SUMMARY: Charles is A&Ox4. VSS on RA. Denies any pain. Blood glucose checked, insulin provided per orders, see MAR. TPN infusing per orders, see MAR. Pended to new room, report called by [facility] dayshift GRETCHEN Muse to [facility] dayshift GRETCHEN Fernando. Patient sent to new room with all belongings. * Sharon Fernandez PTA - 03/30/2024 1:46 PM EDT Physical Therapy Note 3 Patient profile: Per H&P Charles Nick is a 48 y.o. 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 However between last admit for whipple procedure [...] and SBA for ambulation and transfers w/ balance staff inspector as able Pt encouraged to ambulate frequently [...] rail with supervision. Time IN / OUT: 1756-0390 / 2812-2709 Total Time: 34 minutes; TEF 2 Sharon Fernandez PTA Pager: [phone] Physical Therapy Inpatient Rehabilitation Department * Leonarda [...] Nick is a 48 y.o. 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 Isidra Hickey APRN, DNP, -[facility] Inpatient Diabetes Management Team Team pager #[phone] * Gary Mtz PA - 03/30/2024 9:30 AM EDT Surgical Oncology Inpatient Progress Note Patient Name: Charles Nick ; Age: 4 1975; 48 y.o. Room/Bed: IS85/IS85-A Today's Date: 03/30/24 ID: Charles Nick is a 48 y.o. 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 24 Hour Events: - Continues on ceftriaxone/flagyl, started on fluconazole. - NGT clamp trial with 300cc output - NGT returned to [facility] and started on Reglan for pro-motility [...] with 300cc output - NGT returned to [facility] and started on Reglan for pro-motility [...] s/p Whipple on 03/01 who presents to [facility] on 03/24 for new peripancreatic abscess on [...] Off insulin gtt since 03/26 - appreciate [facility] medicine and DM BREWMASTER recs, currently on glargine 10u daily, Moderate [...] JULIO Burgess Surgical Oncology Service Team Pager #[phone] 03/30/24 9:30 AM Associated attestation - Rudi [...] s/p Whipple on 03/01 who presents to [facility] on 03/24 for new peripancreatic abscess on [...] last admission. He initially presented to [facility] and was transferred here for further care. Patient with the following active problems: Past Medical History: Diagnosis Date CKD (chronic kidney disease) stage 3, GFR 30-59 ml/min 01/31/2011 Obesity 01/31/2011 Past Surgical History: Procedure Laterality Date CT GUIDED DRAIN PANCREATIC/PERIPANCREATIC 03/25/2024 CT Guided Drain Pancreatic/Peripancreatic Joe Quintero, DO [facility] RAD CT SCAN IR BIOPSY LIVER PERCUTANEOUS - NON-FOCAL PARENCHYMA 01/07/2023 IR Biopsy Liver Percutaneous 01/07/2023 Juan Wright MD [facility] INTERVENTIONL RAD PRO PART REMV PANC, PROX+REMV DUOD+ANAST N/A 03/01/2024 @WHIPPLE PROCEDURE (WRVU 52.84) performed by Rudi Hernandez MD at [facility] MAIN OR PRO TRANSFER SKIN PEDICLE FLAP N/A 03/01/2024 TRANSFER, INTERMEDIATE, ANY PEDICLE FLAP, ANY LOCATION (WRVU 4.77) performed by Rudi Hernandez MD at [facility] MAIN OR Active Non-Hospital Problems Diagnosis Duodenal adenocarcinoma CKD (chronic kidney disease) stage 3, GFR 30-59 ml/min Obesity Social History: Home set-up: Lives in home with girlfriend Jenelle Stairs: 1STE with rail, ~13 stairs to second floor Baseline mobility: IND baseline with mobility, ambulation, self-care, 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 Time IN / OUT: 4311-2605, 7203-2945 Total Minutes, Physical Therapy: 26 Jewels Smith DPT Pager: [phone] Physical Therapy Inpatient Rehabilitation Department * Isidra Hickey APRN - 03/29/2024 11:10 AM EDT Glucose Management Team Inpatient Progress Note HPI Charles Nick is a 48 y.o. 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 Isidra Hickey APRN, DNP, -[facility] Inpatient Diabetes Management Team Team pager #[phone] * Gary Mtz PA - 03/29/2024 8:23 AM EDT Surgical Oncology Inpatient Progress Note Patient Name: Charles FLANAGAN; Age: 4 1975; 48 y.o. [facility] Today's Date: 03/29/24 ID: Charles Nick is a 48 y.o. 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 who presents to [facility] on 03/24 for new peripancreatic fluid collection [...] s/p Whipple on 03/01 who presents to [facility] on 03/24 for new peripancreatic abscess on [...] 03/26 - appreciate Hospital medicine and DM BREWMASTER recs, currently on glargine 10u daily, Moderate [...] JULIO Burgess Surgical Oncology Service Team Pager #[phone] 03/29/24 8:23 AM Associated attestation - Rudi [...] s/p Whipple on 03/01 who presents to [facility] on 03/24 for new peripancreatic fluid collection [...] s/p Whipple on 03/01 who presents to [facility] on 03/24 for new peripancreatic abscess on [...] protocol - appreciate Hospital Medicine and DM BREWMASTER recs - Repleting lytes - K and [...] Hyde MD Surgical Oncology Service Team Pager #[phone] 03/28/24 3:39 PM * Kristen Meza, COMB MACHINE OPERATOR - 03/28/2024 8:40 AM EDT Follow Up [...] s/p Whipple on 03/01 who presents to [facility] on 03/24 for new peripancreatic abscess on [...] Monitoring:Q4 Discharge Considerations: Must d/c SGLT-2 Kristen eMza APRN [facility] Endocrinology Diabetes Management Pager [phone] Weekends please page [phone] 35 minute visit was spent with the patient in counseling on diabetes and treatment plan, reviewing all glucose and insulin data as well as relevant laboratory results with the patient, and coordination of care on the inpatient unit including nursing and primary team. * Crystal Rubio MD - 03/27/2024 6:19 PM EDT Internal Medicine Inpatient Consult Progress Note Charles Nikc is a 48 y.o. male with relevant [...] Crystal Rubio MD Internal Medicine, PGY3 Pager: [phone] * Luke Hyde MD - 03/27/2024 8:58 AM EDT Surgical Oncology Inpatient Progress Note Patient Name: Charles Nick ; Age: 4 1975; 48 y.o. Room[facility]Bed: [facility] Today's Date: 03/27/24 ID: Charles Nick is a 48 y.o. 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 * Kristen Meza, COMB MACHINE OPERATOR - 03/26/2024 3:11 PM EDT Images from [...] s/p Whipple on 03/01 who presents to [facility] on 03/24 for new peripancreatic abscess on [...] Considerations: Must d/c SGLT-2 Kristen Meza APRN [facility] Endocrinology Diabetes Management Pager [phone] Weekends please page [phone] 35 minutes were spent over the course [...] Crystal Rubio MD Internal Medicine, PGY3 Pager: [phone] Associated attestation - John Paul Logan MD [...] FLANAGAN; Age: 4 1975; 48 y.o. Room/Bed: [facility] Today's Date: 03/26/24 ID: Charles Nick is a 48 y.o. 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 Address: [facility] [address] [place] [phone] (home) [phone] (work) Mobile: Telephone Information: Referring Provider: Edu [...] Age: 4 1975; 48 y.o. Room/Bed: [facility] Today's Date: 03/25/24 ID: Charles Nick is a 48 y.o. 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 24 Hour Events: - Transferred from [facility] likely in DKA and w/ new [...] few days. Hospital Course: 03/24: Admitted from [facility]. IVF & abx started 03/25 HD1: [...] s/p Whipple on 03/01 who presents to [facility] on 03/24 for new peripancreatic abscess on [...] Hepato Pancreato Biliary Surgery Service Team Pager #[phone] 03/25/24 9:55 AM Associated attestation - Rudi [...] post Whipple on 03/01 who presents to [facility] in transfer on 03/24 for intolerance to oral intake, leukocytosis, tachycardia, hypotension with CT finding of new peripancreatic abscess . IR History: None at [facility]. Antiplatelets: None. Anticoagulants: None. Recent Laboratories: Platelets: [...] Biopsy Liver Percutaneous 01/07/2023 Juan Wright MD [facility] INTERVENTIONL RAD PRO PART REMV PANC, PROX+REMV DUOD+ANAST N/A 03/01/2024 @CHAKA PROCEDURE (WRVU 52.84) performed by Rudi Hernandez MD at [facility] MAIN OR PRO TRANSFER SKIN PEDICLE FLAP N/A 03/01/2024 TRANSFER, INTERMEDIATE, ANY PEDICLE FLAP, ANY LOCATION (WRVU 4.77) performed by Rudi Hernandez MD at [facility] MAIN OR Medications: No current facility-administered [...] covered by insurance 15 mL 3 Insulin Rozel, Disposable, (BD Ultra-Fine Micro Pen Needle) 32 gauge x 1/4 Needle 1 each by [facility].(Non-Drug; Combo Route) route 2 times daily. [...] mouth 2 times daily. 180 tablet 3 ainplk-iizkiyoz-bfczrtw (Zenpep) 40,000-126,000- 168,[address] capsule Take [...] post Whipple on 03/01 who presents to [facility] in transfer on 03/24 for intolerance to [...] post Whipple on 03/01 who presents to [facility] in transfer on 03/24 for intolerance to oral intake, leukocytosis, tachycardia, hypotension with CT finding of new peripancreatic abscess . IR History: None at [facility]. Antiplatelets: None. Anticoagulants: None. Recent Laboratories: Platelets: [...] Biopsy Liver Percutaneous 01/07/2023 Juan Wright MD [facility] INTERVENTIONL RAD PRO PART REMV PANC, PROX+REMV DUOD+ANAST N/A 03/01/2024 @CHAKA PROCEDURE (WRVU 52.84) performed by Rudi Hernandez MD at [facility] MAIN OR PRO TRANSFER SKIN PEDICLE FLAP N/A 03/01/2024 TRANSFER, INTERMEDIATE, ANY PEDICLE FLAP, ANY LOCATION (WRVU 4.77) performed by Rudi Hernandez MD at [facility] MAIN OR Medications: No current facility-administered [...] covered by insurance 15 mL 3 Insulin Rozel, Disposable, (BD Ultra-Fine Micro Pen Needle) 32 gauge x 1/4 Needle 1 each by [facility].(Non-Drug; Combo Route) route 2 times daily. [...] mouth 2 times daily. 180 tablet 3 mgycle-nhbdesyo-gzcqvse (Zenpep) 40,000-126,000- 168,[address] capsule Take [...] post Whipple on 03/01 who presents to [facility] in transfer on 03/24 for intolerance to [...] AND PHYSICAL Patient Name: Charles Nick MR#: [id number] : 1975 Admission Date: 03/24/2024 Indication for Admission: Perihepatic abscess History of Present Illness: Charles Nick is a 48 y.o. 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 He initially presented to [facility] and was transferred here for further [...] Biopsy Liver Percutaneous 01/07/2023 Juan Wright MD [facility] INTERVENTIONL RAD PRO PART REMV PANC, PROX+REMV DUOD+ANAST N/A 03/01/2024 @WHIPPLE PROCEDURE (WRVU 52.84) performed by Rudi Hernandez MD at [facility] MAIN OR PRO TRANSFER SKIN PEDICLE FLAP N/A 03/01/2024 TRANSFER, INTERMEDIATE, ANY PEDICLE FLAP, ANY LOCATION (WRVU 4.77) performed by Rudi Hernandez MD at [facility] MAIN OR Home Medications: Medications Prior [...] by insurance 15 mL 3 03/23/2024 Insulin Rozel, Disposable, (BD Ultra-Fine Micro Pen Needle) 32 gauge x 1/4 Needle 1 each by [facility].(Non-Drug; Combo Route) route 2 times daily. [...] times daily. 180 tablet 3 Past Month oitppe-eqbcrimo-wpdmxts (Zenpep) 40,000-126,000- 168,[address] capsule Take [...] s/p Whipple on 03/01 who presents to [facility] on 03/24 for new peripancreatic abscess. Episodes [...] MD 03/24/2024 Surgical Oncology Service Team pager #[phone] documented in this encounter Procedure Notes * [...] to the planned procedure. Hand Hygiene: The daycare teacher did perform hand hygiene prior to line insertion. Catheter type: PICC Lot number: [id number] Procedure Technique: Skin was prepped with chlorhexidine. [...] information for follow-up [facility] [address] [place] [address] [facility] [address] [place] [address] Transportation: family or friend will provide Functional [...] Discharge: Patient is insured through: Primary Insurance: [facility] Payor: [facility] / Plan: [facility] PPO / Product Type: *No Product type* [...] s/p Whipple on 03/01 who presents to [facility] on 03/24 for new peripancreatic fluid collection [...] 1800 03/30/2024 1800 03/29/2024 1800 Adult TPN [[id number]] Adult TPN [[id number]] Adult TPN [[id number]] Order Status Active Last Dose in Progress [...] encounter: 119.7 kg (263 lb 14.3 oz). [place] Body Weight (IBW) (kg): 86.36 Wt Readings [...] maxillary line): Not assessed Lean Muscle Loss Scientology region (temporalis muscle): Mild Clavicle bone region [...] s/p Whipple on 03/01 who presents to [facility] on 03/24 for new peripancreatic abscess on [...] [facility] for further care. On admission, he was [...] 03/25/2024 CT Guided Drain Pancreatic/Peripancreatic Joe Quintero, [facility] RAD CT SCAN IR BIOPSY LIVER PERCUTANEOUS - NON-FOCAL PARENCHYMA 01/07/2023 IR Biopsy Liver Percutaneous 01/07/2023 Juan Wright MD [facility] INTERVENTIONL RAD PRO PART REMV PANC, PROX+REMV DUOD+ANAST N/A 03/01/2024 @CHAKA PROCEDURE (WRVU 52.84) performed by Rudi Hernandez MD at [facility] MAIN OR PRO TRANSFER SKIN PEDICLE FLAP N/A 03/01/2024 TRANSFER, INTERMEDIATE, ANY PEDICLE FLAP, ANY LOCATION (WRVU 4.77) performed by Rudi Hernandez MD at [facility] MAIN OR Medications: Scheduled Meds: acetaminophen [...] concerns. Please page ID Red team (pager [phone]) with questions or concerns. Melisa Haney MD, MPH Fellow, Infectious Disease Pager: [phone] Epic Chat 03/30/2024 ID ATTENDING I have [...] s/p Whipple on 03/01 who presents to [facility] on 03/24 for new peripancreatic fluid collection [...] 1800 03/29/2024 1800 03/27/2024 1800 Adult TPN [[id number]] Adult TPN [[id number]] Adult TPN [[id number]] Order Status Active Last Dose in Progress [...] encounter: 119.7 kg (263 lb 14.3 oz). [place] Body Weight (IBW) (kg): 86.36 Wt Readings [...] maxillary line): Not assessed Lean Muscle Loss Scientology region (temporalis muscle): Mild Clavicle bone region [...] No Patient is insured through: Primary Insurance: [employer] Payor: [facility] / Plan: [facility] PPO / Product Type: *No Product type* [...] tpn/insulin cont on broad spectrum abx for abscess,[facility] (r,p) Care Management will continue to [...] s/p Whipple on 03/01 who presents to [facility] on 03/24 for new peripancreatic fluid collection [...] plan with provider Surg Onc 5012 Dr. Mzt. Current Nutrition Regimen: Active Orders Diet Sips and Chips (Give Meds) Frequency: Effective Now Number of Occurrences: Until Specified TPN Orders: TPN Medication Recent History (Show up to 3 orders; newest on the left. Changes between the two most recent orders are indicated.) Start date and time 03/29/2024 1800 03/27/2024 1800 Adult TPN [[id number]] Adult TPN [[id number]] Order Status Active Completed Last Admin New [...] encounter: 116.5 kg (256 lb 12.8 oz). [place] Body Weight (IBW) (kg): 86.36 Wt Readings [...] maxillary line): Not assessed Lean Muscle Loss Scientology region (temporalis muscle): Mild Clavicle bone region [...] s/p Whipple on 03/01 who presents to [facility] on 03/24 for new peripancreatic fluid collection [...] date and time 03/27/2024 1800 Adult TPN [[id number]] Order Status Active Frequency Continuous (TPN) Additives [...] encounter: 116.5 kg (256 lb 12.8 oz). [place] Body Weight (IBW) (kg): 86.36 Wt Readings [...] maxillary line): Not assessed Lean Muscle Loss Scientology region (temporalis muscle): Mild Clavicle bone region [...] from the original note were not included. [facility] [place] [address] [facility] Vascular Access Service Peripherally Inserted Central Catheter (PICC) Teaching Sheet Peripherally inserted central catheters (capy-cb-efxa) (PICC) are used when you need IV [...] midline catheter? PICC lines are used for assisted treatments. PICC lines may be used for [...] can be set up via the nurse Senior Windows Administrator to help you. What are possible complications [...] s/p Whipple on 03/01 who presents to [facility] on 03/24 for new peripancreatic fluid collection [...] encounter: 116.5 kg (256 lb 12.8 oz). [place] Body Weight (IBW) (kg): 86.36 Wt Readings [...] maxillary line): Not assessed Lean Muscle Loss Scientology region (temporalis muscle): Mild Clavicle bone region [...] s/p Whipple on 03/01 who presents to [facility] on 03/24 for new peripancreatic abscess on CT. We are being consulted to assist with diabetes management and to provide a review of assisted diabetes care in setting of euglycemic DKA [...] BID heparin (porcine) 5,000 Units Subcutaneous Q8H [facility] senna-docusate 2 tablet Oral BID polyethylene glycoL (MIRALAX) oral powder 17 g Oral Daily insulin lispro 1-4 Units Subcutaneous Q4H [facility] cefTRIAXone 1 g Intravenous Q24H metroNIDAZOLE 500 [...] s/p Whipple on 03/01 who presents to [facility] on 03/24 for new peripancreatic abscess on [...] Meza APRN Endocrinology Diabetes Management Service Pager: [phone] Weekends please page [phone] 80 minute visit was spent in counseling [...] bedside nurse, medical record, and Significant Other (Population Health Coach spoke with Jenelle, petra significant other. Patient was sleeping from procedure.) Introduced self/reviewed role; services accepted. Admitted From: [facility] Reason for Hospitalization: peripancreatic fluid collection on CT, s/p Whipple on 03/01. Past medical History: Past Medical History: Diagnosis Date CKD (chronic kidney disease) stage 3, GFR 30-59 ml/min 01/31/2011 Obesity 01/31/2011 Hospitalizations Within the Past 30 Days: previous discharge plan unsuccessful Current Decision-Making Capacity: Self If AD's have not been completed the following surrogate would be surrogate decision maker per [place] surrogate decision making law. (Only good for 180 days) Any patient receiving care in [place] must abide by [place] law. The hierarchy for surrogate decision making is: (a) Patient???s spouse or civil union partner unless there is a divorce proceeding, separation agreement, or restraining order limiting that person???s relationship with the patient. Jenelle Souza, SO [phone] (b) Any adult son or daughter of the patient. (c) Either parent of the patient. (d) Any adult brother or sister of the patient. (e) Any adult grandchild of the patient. (f) Any grandparent of the patient. (g) Any adult aunt, uncle, niece, or nephew of the patient. (h) A close friend of the patient. (i) The agent with financial power of commercial real estate attorney or a conservator appointed in accordance [...] is interested in placing a referral to [facility]. OSVALDO goinslt placed for caregiver resources in [...] or living in a skilled nursing (including now)?: No In the past 12 months has the [employer], gas, oil, or water [employer] threatened to shut off services in your [...] (walking stick) Home Address confirmed as: [address] [address] Social & Family Supports: All names listed below confirmed with patient as current and correct Extended Emergency Contact Information Primary Emergency Contact: JENELLE SOUZA Address: [address] [address] [facility] Mobile Relation: Life Partner Current Care Provided [...] Specific Information: none Health/Prescription Coverage: Primary Insurance: [facility] Payor: [facility] / Plan: [facility] PPO / Product Type: *No Product type* / Secondary Insurance: N/A ; Prescription Coverage: Yes Preferred Pharmacy: [facility] [address] [address] [facility] [address] - [place], [place] - [address] [address] Status: Patient is a : No Primary Care Provider confirmed: Olga Hoffman, YOCASTA [phone] Patient/Caregiver Goals of Treatment: Return home with SO and VNA services when medically ready. Potential Needs for Transition of Care: home health care Agency Referrals: I have met with the medical detail representative to: discuss discharge planning needs. provide the [facility], Office of Care Management letter from the Ventilation Equipment Tender pertaining to rehab referrals. provide a letter describing our affiliations within the [facility] and educate about their right to choose where referrals are sent. provide a list of Home Health Agencies / Durable Medical Equipment vendors which serve their preferred geographic area. provided patient with [facility] Star Quality Rating handout. They have requested referrals to: [facility] [place]. [address] [place] [address] Note routed to a Farm Tractor Operator who will communicate referrals to facilities [...] abx, wound care, and trending labs. Referralto [facility] for VNA services placed. Care Management team will continue to follow and assist with discharge planing and coordination of care as indicated. JACKIE Mcguire, youth leader of Care Management Pager [phone] * Consult Note - Crystal Rubio MD [...] surgery recently, he decided to report to [facility]. At the outside hospital he was noted to have acidosis, elevated lactate and a fluid collection in the abdomen onCT abdomen pelvis. There was concern for sepsis in setting of intra-abdominal fluid collection. He was started on IV antibiotics. He received IV fluids as well. Subsequently he was transferred to [facility] for management of possible peripancreatic abscess. On arrival to [facility] HR 99, BP 120/85, RR 11, SpO2 [...] 03/25/2024 CT Guided Drain Pancreatic/Peripancreatic Joe Quintero, [facility] RAD CT SCAN IR BIOPSY LIVER PERCUTANEOUS - NON-FOCAL PARENCHYMA 01/07/2023 IR Biopsy Liver Percutaneous 01/07/2023 Juan Wright MD [facility] INTERVENTIONL RAD PRO PART REMV PANC, PROX+REMV DUOD+ANAST N/A 03/01/2024 @WHIPPLE PROCEDURE (WRVU 52.84) performed by Rudi Hernandez MD at [facility] MAIN OR PRO TRANSFER SKIN PEDICLE FLAP N/A 03/01/2024 TRANSFER, INTERMEDIATE, ANY PEDICLE FLAP, ANY LOCATION (WRVU 4.77) performed by Rudi Hernandez MD at [facility] MAIN OR FamHx: SocHx: Tob: EtOH: [...] Crystal Rubio MD Internal Medicine, PGY3 Pager: [phone] Associated attestation - John Paul Logan MD [...] CWCN. Patient seen this morning in room [id number] bed, reason for visit explained to patient, [...] bed. 3. Cover with a Mepilex border. (MediCNZZney PS# [id number]) Supplies left at the bedside: 2 Medihoney alginate Wound Care Team will follow up peripherally. Discussed plan with: RN: Chris Please contact Francine Martinez RN on eD secure chat or the wound care team on pager [phone] with skin and wound care concerns or questions. Electronically Signed By: Francine Martinez RN * Plan of Care - Kassie Parker RN - 03/25/2024 1:39 AM EDT OUTCOME EVALUATION NOTE: OUTCOME SUMMARY: Admitted from [facility] for metabolic acidosis, intra-abdominal abscess, hypotension, [...] air, per pt's SO, dressing removed at [facility], foam dressing applied. PLAN MOVING FORWARD: [...] AM EDT Office Visit Hematology/Oncology at [address] [phone] Rodriguez Fowler MD [facility] [place] [address] [address] HEMATOLOGY AND ONCOLOGY [place], [place] [phone] 06/11/2024 10:00 AM EDT Infusion Hematology Oncology at [address] [phone] 06/25/2024 9:30 AM EDT Office Visit Hematology/Oncology at [address] [phone] Rodriguez Fowler MD [facility] [place] [address] [address] H[place] [address] 06/25/2024 10:00 AM EDT Infusion Hematology Oncology at [address] [phone] Scheduled Referrals Name Type Priority Associated Diagnoses [...] Summer Logan performed this procedure. ? Juan CUETO IR ORDERABLES * IR Drain Check/Change/Remove (04/08/2024 [...] 9:30 AM EDT) Amylase, Fluid >7,500 unit/L [facility] Comment: Reference intervals are unavailable for this test in body fluids. Comparison of this result with the concentration in blood, serum, or plasma is recommended. This test has not been cleared by the US FDA. Performance characteristics of this test for the analysis of body fluids were determined by [facility] in accordance with CLIA requirements. This laboratory is qualified under CLIA to perform high-complexity testing. Amylase BF Type BASIA Drain [facility] BASIA Drain 04/08/2024 9:30 AM EDT 04/08/2024 9:40 AM EDT Narrative Resulting Agency Comment Spec In Lab Rudi Hernandez MD BODY FLUIDS AND OREN CASILLAS ORDERABLES [facility] [place] [address] * (ABNORMAL) Comprehensive metabolic panel (non-fasting) (04/08/2024 8:17 AM EDT) Glucose 183 65 - 199 mg/dL [facility] Comment:Diabetes: >=200 mg/d L plus symptoms Blood Urea Nitrogen 3(L) 10 - 20 mg/dL [facility] Creatinine 0.97 0.80 - 1.50 mg/dL [facility] Sodium 139 135 - 145 mmol/L [facility] Potassium 4.8 3.5 - 5.0 mmol/L [facility] Comment: Please note: ??Patients with WBC >100,000 may have falsely elevated Potassium levels. ??For accurate Potassium quantification in these patients send serum separator tube (gold top) for subsequent determinations. ??Contact the Clinical Chemistry Laboratory if there are any questions. Chloride 100 98 - 107 mmol/L [facility] Carbon Dioxide 26 22 - 31 mmol/L [facility] Anion Gap 13 5 - 15 mmol/L [facility] Calcium 9.3 8.5 - 10.5 mg/dL [facility] Protein, Total 7.3 6.1 - 8.0 g/dL [facility] Albumin 3.6 3.2 - 5.2 g/dL [facility] Aspartate Aminotransferase 26 0 - 39 unit/L [facility] Alanine Aminotransferase 30 0 - 55 unit/L [facility] Alkaline Phosphatase 105 40 - 130 unit/L [facility] Bilirubin, Total 0.3 0.2 - 1.3 mg/dL [facility] Est Glomerular Filtration Rate 96 >=60 mL/min/1. 73 m?? [facility] Comment: This patient's estimated GFR [...] Hernandez MD CHEMISTRY ORDERABLES Performing Organization Address [facility] Co de Phone Number [facility] [place] [address] * POCT Glucose (04/01/2024 12:31 PM EDT) Glucose, POC 192 65 - 199 mg/dL [facility] Comment: Supplemental ranges: <140 mg/dL before meals <180 mg/dL all other times of the day Blood 04/01/2024 12:3 1 PM EDT 04/01/2024 12:31 PM EDT Rudi Hernandez MD POINT OF CARE TEST O RDERABLES Performing Organization Address [facility] Co de Phone Number [facility] [place] [address] * POCT Glucose (04/01/2024 7:33 AM EDT) Glucose, POC 156 65 - 199 mg/dL [facility] Comment: Supplemental ranges: <140 mg/dL before meals <180 mg/dL all other times of the day Blood 04/01/2024 7:33 AM EDT 04/01/2024 7:33 AM EDT Rudi Hernandez MD POINT OF CARE TEST O RDERABLES Performing Organization Address [facility] Co de Phone Number [facility] [place] [address] * Amylase Level Body Fluid BASIA Drain (04/01/2024 6:37 AM EDT) Pathologist [facility] Amylase, Fluid >7,500 unit/L [facility] Comment: Reference intervals are unavailable for this test in body fluids. Comparison of this result with the concentration in blood, serum, or plasma is recommended. This test has not been cleared by the [place] FDA. Performance characteristics of this test for the analysis of body fluids were determined by [facility] in accordance with CLIA requirements. This laboratory is qualified under CLIA to perform high-complexity testing. Amylase BF Type BASIA Drain [facility] BASIA Drain 04/01/2024 6:37 AM EDT 04/01/2024 6:52 AM EDT Narrative Resulting Agency Comment Spec In Lab Rudi Hernandez MD BODY FLUIDS AND STOO LS ORDERABLES Performing Organization Address [facility] Co de Phone Number [facility] [place] [address] * Differential, Automated (04/01/2024 4:48 AM EDT) Pathologist [facility] Neutrophil % 61.5 % [facility] Neutrophil Absolute 3.78 1.70 - 6.10 x10(3)/[facility] LABORATORY Lymph % 20.4 % [facility] Lymphocytes Abs 1.2 0.9 - 3.2 x10(3)/[facility] LABORATORY Monocyte % 11.2 % [facility] Monocyte Abs 0.7 0.3 - 0.9 x10(3)/[facility] Eos % 5.4 % [facility] Eosinophils Abs 0.3 0.0 - 0.4 x10(3)/[facility]OR[facility]ORY Basophil % 1.0 % [facility] Baso Absolute 0.1 0.0 - 0.1 x10(3)/[facility] Immature Gran % 0.50 % [facility] Comment: Immature granulocytes(IG's)percentage and absolute count will include metamyelocytes, myelocytes, and promyelocytes. Blood smears from CBCs yielding IG's will be scanned manually for concordance. If this scan disagrees with the automated IG or if promyelocytes are noted, a manual differential will be performed. Immature Gran Absolute 0.03 0.00 - 0.04 x10(3)/[facility] Blood 04/01/2024 4:48 AM EDT 04/01/2024 5:00 AM EDT Narrative Resulting Agency Comment Spec In Lab Luke Hyde MD HEMATOLOGY ORDERABLE S [facility] [place] [address] * (ABNORMAL) Hemogram (04/01/2024 4:48 AM EDT) White Blood Cell 6.1 4.0 - 9.5 x10(3)/[facility] LABORATORY Red Blood Cell 5.10 4.58 - 5.54 x10(6)/mc L [facility] Hemoglobin 12.1(L) 13.7 - 16.5 g/dL [facility] Hematocrit 37.2(L) 40.5 - 48.5 % [facility] Mean Cell Volume 72.9(L) 82.9 - 93.1 fL [facility] Mean Cell Hemoglobin 23.7(L) 27.5 - 32.1 pg [facility] Mean Cell Hemoglobin Concentration 32.5 32.0 - 35.7 g/dL [facility] Platelet 150 145 - 357 x10(3)/ L [facility] RDW Standard Deviation 42.0 36.0 - 45.0 fL [facility] RDW coefficient of variation 17.0(H) 11.4 - 13.8 % [facility] Mean Platelet Volume 9.8 7.6 - 12.9 fL [facility] NRBC% auto 0.0 % [facility] NRBC Absolute 0.000 0.000 - 0.000 x10(3)/mc L [facility] Blood 04/01/2024 4:48 AM EDT 04/01/2024 5:00 AM EDT Narrative Resulting Agency Comment Spec In Lab Luke Hdye MD HEMATOLOGY ORDERABLE S [facility] [place] [address] * Phosphorus (04/01/2024 4:48 AM EDT) Phosphorus 4.0 2.5 - 4.5 mg/dL [facility] Blood 04/01/2024 4:48 AM EDT 04/01/2024 5:00 AM EDT Narrative Resulting Agency Comment Spec In Lab Rudi Hernandez MD CHEMISTRY ORDERABLES Performing Organization Address City/[facility]/ZIP Co de Phone Number [facility] [place] [address] * Magnesium (04/01/2024 4:48 AM EDT) Magnesium 0.97 0.69 - 1.07 mmol/L [facility] Blood 04/01/2024 4:48 AM EDT 04/01/2024 5:00 AM EDT Narrative Resulting Agency Comment Spec In Lab Rudi Hernandez MD CHEMISTRY ORDERABLES Performing Organization Address City/[facility]/ZIP Co de Phone Number [facility] [place] [address] * (ABNORMAL) Basic Metabolic Panel (non-fasting) (04/01/2024 4:48 AM EDT) Glucose 165 65 - 199 mg/dL [facility] Comment:Diabetes: >=200 mg/d L plus symptoms Blood Urea Nitrogen 10 10 - 20 mg/dL [facility] Creatinine 0.70(L) 0.80 - 1.50 mg/dL [facility] Sodium 137 135 - 145 mmol/L [facility] Potassium 4.8 3.5 - 5.0 mmol/L [facility] Comment: Please note: ??Patients with WBC >100,000 may have falsely elevated Potassium levels. ??For accurate Potassium quantification in these patients send serum separator tube (gold top) for subsequent determinations. ??Contact the Clinical Chemistry Laboratory if there are any questions. Chloride 100 98 - 107 mmol/L [facility] Carbon Dioxide 29 22 - 31 mmol/L [facility] Anion Gap 8 5 - 15 mmol/L [facility] Calcium 8.9 8.5 - 10.5 mg/dL [facility] Est Glomerular Filtration Rate 113 >=60 mL/min/1. 73 m?? [facility] Comment: This patient's estimated GFR [...] In Lab Rudi Hernandez MD CHEMISTRY ORDERABLES [facility] [place] [address] * POCT Glucose (04/01/2024 3:09 AM EDT) Glucose, POC 184 65 - 199 mg/dL [facility] Comment: Supplemental ranges: <140 mg/dL before meals <180 mg/dL all other times of the day Blood 04/01/2024 3:09 AM EDT 04/01/2024 3:09 AM EDT Rudi Hernandez MD POINT OF CARE TEST O RDERAVANNESSA Performing Organization Address City/[facility]/ZIP Co de Phone Number [facility] [place] [address] * POCT Glucose (03/31/2024 11:56 PM EDT) Glucose, POC 146 65 - 199 mg/dL [facility] Comment: Supplemental ranges: <140 mg/dL before meals <180 mg/dL all other times of the day Blood 03/31/2024 11:5 6 PM EDT 03/31/2024 11:56 PM EDT Rudi Hernandez MD POINT OF CARE TEST O ARASHERAVANNESSA Performing Organization Address [facility]/ZIP Co de Phone Number [facility] [place] [address] * POCT Glucose (03/31/2024 7:22 PM EDT) Glucose, POC 145 65 - 199 mg/dL [facility] Comment: Supplemental ranges: <140 mg/dL before meals <180 mg/dL all other times of the day Blood 03/31/2024 7:22 PM EDT 03/31/2024 7:22 PM EDT Rudi Hernandez MD POINT OF CARE TEST O RDERABLES [facility] [place] [address] * POCT Glucose (03/31/2024 4:15 PM EDT) Glucose, POC 155 65 - 199 mg/dL [facility] Comment: Supplemental ranges: <140 mg/dL before meals <180 mg/dL all other times of the day Blood 03/31/2024 4:15 PM EDT 03/31/2024 4:15 PM EDT Rudi Hernandez MD POINT OF CARE TEST O RDERABLES [facility] [place] [address] * Differential, Automated (03/31/2024 12:45 PM EDT) Neutrophil % 63.5 % [facility] Neutrophil Absolute 3.70 1.70 - 6.10 x10(3)/[facility] Lymph % 19.6 % [facility] Lymphocytes Abs 1.1 0.9 - 3.2 x10(3)/[facility] Monocyte % 10.5 % [facility] Monocyte Abs 0.6 0.3 - 0.9 x10(3)/[facility] Eos % 5.0 % [facility] Eosinophils Abs 0.3 0.0 - 0.4 x10(3)/[facility] Basophil % 0.7 % [facility] Baso Absolute 0.0 0.0 - 0.1 x10(3)/[facility] Immature Gran % 0.70 % [facility] Comment: Immature granulocytes(IG's)percentage and absolute count will include metamyelocytes, myelocytes, and promyelocytes. Blood smears from CBCs yielding IG's will be scanned manually for concordance. If this scan disagrees with the automated IG or if promyelocytes are noted, a manual differential will be performed. Immature Gran Absolute 0.04 0.00 - 0.04 x10(3)/[facility] Blood 03/31/2024 12:4 5 PM EDT 03/31/2024 12:56 PM EDT Narrative Resulting Agency Comment Spec In Lab Rudi Hernandez MD HEMATOLOGY ORDERABLE S [facility] [place] [address] * (ABNORMAL) Hemogram (03/31/2024 12:45 PM EDT) White Blood Cell 5.8 4.0 - 9.5 x10(3)/mc L [facility] Red Blood Cell 4.96 4.58 - 5.54 x10(6)/ L [facility] Hemoglobin 11.9(L) 13.7 - 16.5 g/dL [facility] Hematocrit 37.4(L) 40.5 - 48.5 % [facility] Mean Cell Volume 75.4(L) 82.9 - 93.1 fL [facility] Mean Cell Hemoglobin 24.0(L) 27.5 - 32.1 pg [facility] Mean Cell Hemoglobin Concentration 31.8(L) 32.0 - 35.7 g/dL [facility] Platelet 162 145 - 357 x10(3)/ L [facility] RDW Standard Deviation 43.7 36.0 - 45.0 [facility] RDW coefficient of variation 17.1(H) 11.4 - 13.8 % [facility] Mean Platelet Volume 9.8 7.6 - 12.9 [facility] NRBC% auto 0.0 % [facility] NRBC Absolute 0.000 0.000 - 0.000 x10(3)/ L [facility] Blood 03/31/2024 12:4 5 PM EDT 03/31/2024 12:56 PM EDT Narrative Resulting Agency Comment Spec In Lab Rudi Hernandez MD HEMATOLOGY ORDERABLE S [facility] [place] [address] * (ABNORMAL) POCT Glucose (03/31/2024 12:20 PM EDT) [facility] Glucose, POC 263(H) 65 - 199 mg/dL [facility] Comment: Supplemental ranges: <140 mg/dL before meals <180 mg/dL all other times of the day Blood 03/31/2024 12:2 0 PM EDT 03/31/2024 12:20 PM EDT Rudi Hernandez MD POINT OF CARE TEST O RDERABLES [facility] [place] [address] * Phosphorus (03/31/2024 8:30 AM EDT) [facility] Phosphorus 3.6 2.5 - 4.5 mg/dL [facility] Blood 03/31/2024 8:30 AM EDT 03/31/2024 8:52 AM EDT Narrative Resulting Agency Comment Spec In Lab Rudi Hernandez MD CHEMISTRY ORDERABLES Performing Organization Address City/[facility]/ZIP Co de Phone Number [facility] [place] [address] * Magnesium (03/31/2024 8:30 AM EDT) [facility] Magnesium 0.93 0.69 - 1.07 mmol/L [facility] Blood 03/31/2024 8:30 AM EDT 03/31/2024 8:52 AM EDT Narrative Resulting Agency Comment Spec In Lab Rudi Hernandez MD CHEMISTRY ORDERABLES Performing Organization Address City/[facility]/ZIP Co de Phone Number [facility] [place] [address] * (ABNORMAL) Basic Metabolic Panel (non-fasting) (03/31/2024 8:30 AM EDT) [facility] Glucose 185 65 - 199 mg/dL [facility] Comment:Diabetes: >=200 mg/d L plus symptoms Blood Urea Nitrogen 8(L) 10 - 20 mg/dL [facility] Creatinine 0.64(L) 0.80 - 1.50 mg/dL [facility] Sodium 136 135 - 145 mmol/L [facility] Potassium 4.7 3.5 - 5.0 mmol/L [facility] Comment: Please note: ??Patients with WBC >100,000 may have falsely elevated Potassium levels. ??For accurate Potassium quantification in these patients send serum separator tube (gold top) for subsequent determinations. ??Contact the Clinical Chemistry Laboratory if there are any questions. Chloride 100 98 - 107 mmol/L [facility] Carbon Dioxide 29 22 - 31 mmol/L [facility] Anion Gap 7 5 - 15 mmol/L [facility] Calcium 8.6 8.5 - 10.5 mg/dL [facility] Est Glomerular Filtration Rate 116 >=60 mL/min/1. 73 m?? [facility] Comment: This patient's estimated GFR [...] In Lab Rudi Hernandez MD CHEMISTRY ORDERABLES [facility] [place] [address] * POCT Glucose (03/31/2024 8:05 AM EDT) Glucose, POC 164 65 - 199 mg/dL [facility] Comment: Supplemental ranges: <140 mg/dL before meals <180 mg/dL all other times of the day Blood 03/31/2024 8:05 AM EDT 03/31/2024 8:05 AM EDT Rudi Hernadnez MD POINT OF CARE TEST O RDERAVANNESSA Performing Organization Address City/[facility] Co de Phone Number [facility] [place] [address] * (ABNORMAL) POCT Glucose (03/31/2024 4:51 AM EDT) Glucose, POC 217(H) 65 - 199 mg/dL [facility] Comment: Supplemental ranges: <140 mg/dL before meals <180 mg/dL all other times of the day Blood 03/31/2024 4:51 AM EDT 03/31/2024 4:51 AM EDT Rudi Hernandez MD POINT OF CARE TEST O ELKIN Performing Organization Address [facility] Co de Phone Number [facility] [place] [address] * POCT Glucose (03/30/2024 11:46 PM EDT) Glucose, POC 196 65 - 199 mg/dL [facility] Comment: Supplemental ranges: <140 mg/dL before meals <180 mg/dL all other times of the day Blood 03/30/2024 11:4 6 PM EDT 03/30/2024 11:46 PM EDT Rudi Hernandez MD POINT OF CARE TEST O RDERAVANNESSA Performing Organization Address City/[facility] Co de Phone Number [facility] [place] [address] * POCT Glucose (03/30/2024 7:23 PM EDT) Glucose, POC 169 65 - 199 mg/dL [facility] Comment: Supplemental ranges: <140 mg/dL before meals <180 mg/dL all other times of the day Blood 03/30/2024 7:23 PM EDT 03/30/2024 7:23 PM EDT Rudi Hernandez MD POINT OF CARE TEST O RDLIAT [facility] [place] [address] * POCT Glucose (03/30/2024 4:28 PM EDT) Glucose, POC 174 65 - 199 mg/dL [facility] Comment: Supplemental ranges: <140 mg/dL before meals <180 mg/dL all other times of the day Blood 03/30/2024 4:28 PM EDT 03/30/2024 4:28 PM EDT Rudi Hernandez MD POINT OF CARE TEST O ELKIN Performing Organization Address [facility]/ZIP Co de Phone Number [facility] [place] [address] * POCT Glucose (03/30/2024 11:59 AM EDT) Glucose, POC 184 65 - 199 mg/dL [facility] Comment: Supplemental ranges: <140 mg/dL before meals <180 mg/dL all other times of the day Blood 03/30/2024 11:5 9 AM EDT 03/30/2024 11:59 AM EDT Rudi Hernandez MD POINT OF CARE TEST O RDERAVANNESSA [facility] [place] [address] * POCT Glucose (03/30/2024 7:32 AM EDT) Glucose, POC 166 65 - 199 mg/dL [facility] Comment: Supplemental ranges: <140 mg/dL before meals <180 mg/dL all other times of the day Blood 03/30/2024 7:32 AM EDT 03/30/2024 7:32 AM EDT Rudi Hernandez MD POINT OF CARE TEST O RDERABLES Performing Organization Address [facility] Co de Phone Number [facility] [place] [address] * Phosphorus (03/30/2024 6:00 AM EDT) Phosphorus 3.6 2.5 - 4.5 mg/dL [facility] Blood 03/30/2024 6:00 AM EDT 03/30/2024 6:12 AM EDT Narrative Resulting Agency Comment Spec In Lab Rudi Hernandez MD CHEMISTRY ORDERABLES Performing Organization Address [facility] Co de Phone Number [facility] [place] [address] * Magnesium (03/30/2024 6:00 AM EDT) Magnesium 0.93 0.69 - 1.07 mmol/L [facility] Blood 03/30/2024 6:00 AM EDT 03/30/2024 6:12 AM EDT Narrative Resulting Agency Comment Spec In Lab Rudi Hernandez MD CHEMISTRY ORDERABLES Performing Organization Address [facility] Co de Phone Number [facility] [place] [address] * (ABNORMAL) Basic Metabolic Panel (non-fasting) (03/30/2024 6:00 AM EDT) Glucose 208(H) 65 - 199 mg/dL [facility] Comment:Diabetes: >=200 mg/d L plus symptoms Blood Urea Nitrogen 7(L) 10 - 20 mg/dL [facility] Creatinine 0.59(L) 0.80 - 1.50 mg/dL [facility] Sodium 139 135 - 145 mmol/L [facility] Potassium 4.0 3.5 - 5.0 mmol/L [facility] Comment: Please note: ??Patients with WBC >100,000 may have falsely elevated Potassium levels. ??For accurate Potassium quantification in these patients send serum separator tube (gold top) for subsequent determinations. ??Contact the Clinical Chemistry Laboratory if there are any questions. Chloride 100 98 - 107 mmol/L [facility] Carbon Dioxide 31 22 - 31 mmol/L [facility] Anion Gap 8 5 - 15 mmol/L [facility] Calcium 8.6 8.5 - 10.5 mg/dL [facility] Est Glomerular Filtration Rate 119 >=60 mL/min/1. 73 m?? [facility] Comment: This patient's estimated GFR [...] In Lab Rudi Hernandez MD CHEMISTRY ORDERABLES [facility] [place] [address] * POCT Glucose (03/30/2024 4:19 AM EDT) Glucose, POC 184 65 - 199 mg/dL [facility] Comment: Supplemental ranges: <140 mg/dL before meals <180 mg/dL all other times of the day Blood 03/30/2024 4:19 AM EDT 03/30/2024 4:19 AM EDT Rudi Hernandez MD POINT OF CARE TEST O RDERABLES Performing Organization Address [facility] Co de Phone Number [facility] [place] [address] * (ABNORMAL) POCT Glucose (03/29/2024 11:38 PM EDT) Glucose, POC 212(H) 65 - 199 mg/dL [facility] Comment: Supplemental ranges: <140 mg/dL before meals <180 mg/dL all other times of the day Blood 03/29/2024 11:3 8 PM EDT 03/29/2024 11:38 PM EDT Rudi Hernandez MD POINT OF CARE TEST O RDERAVANNESSA Performing Organization Address [facility] Co de Phone Number [facility] [place] [address] * POCT Glucose (03/29/2024 7:36 PM EDT) Glucose, POC 159 65 - 199 mg/dL [facility] Comment: Supplemental ranges: <140 mg/dL before meals <180 mg/dL all other times of the day Blood 03/29/2024 7:36 PM EDT 03/29/2024 7:36 PM EDT Rudi Hernandez MD POINT OF CARE TEST O RDERAVANNESSA Performing Organization Address [facility] Co de Phone Number [facility] [place] [address] * POCT Glucose (03/29/2024 3:46 PM EDT) Glucose, POC 167 65 - 199 mg/dL [facility] Comment: Supplemental ranges: <140 mg/dL before meals <180 mg/dL all other times of the day Blood 03/29/2024 3:46 PM EDT 03/29/2024 3:46 PM EDT Rudi Hernandez MD POINT OF CARE TEST O RDERABLES Performing Organization Address [facility] Co de Phone Number [facility] [place] [address] * EKG 12 Lead (03/29/2024 3:33 PM EDT) Ventricular rate 73 BPM MUSE SYSTEM Atrial Rate 73 BPM MUSE SYSTEM P-R Interval 128 ms MUSE SYSTEM QRS Duration 90 ms MUSE SYSTEM Q-T Interval 402 ms MUSE SYSTEM QTC Calculated (Bezet) 442 ms MUSE SYSTEM Calculated P Deloit 15 degrees MUSE SYSTEM Calculated R Deloit 53 degrees MUSE SYSTEM Calculated T Deloit 16 degrees MUSE SYSTEM INTERPRETATION Normal sinus rhythm Normal ECG When compared with ECG of 06-MAR-2024 06:30, QT has shortened Confirmed by MD Reynaldo, Avinash ([id number]) on 03/30/2024 9:28:45 AM MUSE SYSTEM 03/29/2024 3:33 PM EDT 03/30/2024 9:28 AM EDT Rudi Hernandez MD ECG ORDERABLES Performing Organization Address [facility] Co de Phone Number MUSE SYSTEM * (ABNORMAL) POCT Glucose (03/29/2024 11:56 AM EDT) Glucose, POC 238(H) 65 - 199 mg/dL [facility] Comment: Supplemental ranges: <140 mg/dL before meals <180 mg/dL all other times of the day Blood 03/29/2024 11:5 6 AM EDT 03/29/2024 11:56 AM EDT Rudi Hernandez MD POINT OF CARE TEST O RDERABLES Performing Organization Address [facility] Co de Phone Number [facility] [place] [address] * POCT Glucose (03/29/2024 11:16 AM EDT) Glucose, POC 184 65 - 199 mg/dL [facility] Comment: Supplemental ranges: <140 mg/dL before meals <180 mg/dL all other times of the day Blood 03/29/2024 11:1 6 AM EDT 03/29/2024 11:16 AM EDT Rudi Hernandez MD POINT OF CARE TEST O RDERABLES Performing Organization Address [facility] de Phone Number [facility] [place] [address] * POCT Glucose (03/29/2024 7:22 AM EDT) Glucose, POC 187 65 - 199 mg/dL [facility] Comment: Supplemental ranges: <140 mg/dL before meals <180 mg/dL all other times of the day Blood 03/29/2024 7:22 AM EDT 03/29/2024 7:22 AM EDT Rudi Hernandez MD POINT OF CARE TEST O RDERABLES Performing Organization Address [facility] de Phone Number [facility] [place] [address] * Triglyceride (03/29/2024 4:30 AM EDT) Triglyceride 91 mg/dL [facility] Comment: Normal: ?<150 mg/dL Borderline High: 150-199 mg/dL High: ?200-499 mg/dL Very High: ? >os=048 mg/dL Blood Venous Draw / Unknown 03/29/2024 4:30 AM EDT 03/29/2024 4:36 AM EDT Narrative Resulting Agency Comment Spec In Lab Rudi Hernandez MD CHEMISTRY ORDERABLES Performing Organization Address [facility] de Phone Number [facility] [place] [address] * (ABNORMAL) Hepatic Function Panel (03/29/2024 4:30 AM EDT) Protein, Total 5.4(L) 6.1 - 8.0 g/dL [facility] Albumin 2.7(L) 3.2 - 5.2 g/dL [facility] Aspartate Aminotransferase 10 0 - 39 unit/L [facility] Alanine Aminotransferase 8 0 - 55 unit/L [facility] Alkaline Phosphatase 66 40 - 130 unit/L [facility] Bilirubin, Total 0.2 0.2 - 1.3 mg/dL [facility] Bilirubin, Direct 0.1 0.0 - 0.3 mg/dL [facility] Blood Venous Draw / Unknown 03/29/2024 4:30 AM EDT 03/29/2024 4:36 AM EDT Narrative Resulting Agency Comment Spec In Lab Rudi Hernandez MD CHEMISTRY ORDERABLES [facility] [place] [address] * Differential, Automated (03/29/2024 4:30 AM EDT) Neutrophil % 70.7 % [facility] Neutrophil Absolute 4.58 1.70 - 6.10 x10(3)/[facility] Lymph % 16.5 % [facility] Lymphocytes Abs 1.1 0.9 - 3.2 x10(3)/[facility]ORY Monocyte % 8.2 % [facility] Monocyte Abs 0.5 0.3 - 0.9 x10(3)/[facility] Eos % 3.6 % [facility] Eosinophils Abs 0.2 0.0 - 0.4 x10(3)/[facility] Basophil % 0.5 % [facility] Baso Absolute 0.0 0.0 - 0.1 x10(3)/[facility] Immature Gran % 0.50 % [facility] Comment: Immature granulocytes(IG's)percentage and absolute count will include metamyelocytes, myelocytes, and promyelocytes. Blood smears from CBCs yielding IG's will be scanned manually for concordance. If this scan disagrees with the automated IG or if promyelocytes are noted, a manual differential will be performed. Immature Gran Absolute 0.03 0.00 - 0.04 x10(3)/[facility] Blood 03/29/2024 4:30 AM EDT 03/29/2024 4:35 AM EDT Narrative Resulting Agency Comment Spec In Lab Janette Austin MD HEMATOLOGY ORDERABLE S [facility] [place] [address] * (ABNORMAL) Hemogram (03/29/2024 4:30 AM EDT) White Blood Cell 6.5 4.0 - 9.5 x10(3)/[facility]ORY Red Blood Cell 5.03 4.58 - 5.54 x10(6)/[facility] Hemoglobin 12.0(L) 13.7 - 16.5 g/dL [facility] Hematocrit 36.6(L) 40.5 - 48.5 % [facility] Mean Cell Volume 72.8(L) 82.9 - 93.1 fL [facility] Mean Cell Hemoglobin 23.9(L) 27.5 - 32.1 pg [facility] Mean Cell Hemoglobin Concentration 32.8 32.0 - 35.7 g/dL [facility] Platelet 152 145 - 357 x10(3)/[facility]ORY RDW Standard Deviation 40.4 36.0 - 45.0 [facility]ATORY RDW coefficient of variation 15.7(H) 11.4 - 13.8 % [facility] Mean Platelet Volume 9.5 7.6 - 12.9 [facility] NRBC% auto 0.0 % [facility] NRBC Absolute 0.000 0.000 - 0.000 x10(3)/mc L [facility] Blood 03/29/2024 4:30 AM EDT 03/29/2024 4:35 AM EDT Narrative Resulting Agency Comment Spec In Lab Janette Austin MD HEMATOLOGY ORDERABLE S Performing Organization Address [facility]/ZIP Co de Phone Number [facility] [place] [address] * Magnesium (03/29/2024 4:30 AM EDT) Magnesium 0.87 0.69 - 1.07 mmol/L [facility] Blood 03/29/2024 4:30 AM EDT 03/29/2024 4:35 AM EDT Narrative Resulting Agency Comment Spec In Lab Rudi Hernandez MD CHEMISTRY ORDERABLES Performing Organization Address [facility] [facility] de Phone Number [facility] [place] [address] * Phosphorus (03/29/2024 4:30 AM EDT) Phosphorus 2.9 2.5 - 4.5 mg/dL [facility] Blood 03/29/2024 4:30 AM EDT 03/29/2024 4:35 AM EDT Narrative Resulting Agency Comment Spec In Lab Rudi Hernandez MD CHEMISTRY ORDERABLES Performing Organization Address [facility] Co de Phone Number [facility] [place] [address] * (ABNORMAL) Basic Metabolic Panel (non-fasting) (03/29/2024 4:30 AM EDT) Glucose 201(H) 65 - 199 mg/dL [facility] Comment:Diabetes: >=200 mg/d L plus symptoms Blood Urea Nitrogen 5(L) 10 - 20 mg/dL [facility] Creatinine 0.54(L) 0.80 - 1.50 mg/dL [facility] Sodium 136 135 - 145 mmol/L [facility] Potassium 3.3(L) 3.5 - 5.0 mmol/L [facility] Comment: Please note: ??Patients with WBC >100,000 may have falsely elevated Potassium levels. ??For accurate Potassium quantification in these patients send serum separator tube (gold top) for subsequent determinations. ??Contact the Clinical Chemistry Laboratory if there are any questions. Chloride 95(L) 98 - 107 mmol/L [facility] Carbon Dioxide 31 22 - 31 mmol/L [facility] Anion Gap 10 5 - 15 mmol/L [facility] Calcium 8.5 8.5 - 10.5 mg/dL [facility] Est Glomerular Filtration Rate 122 >=60 mL/min/1. 73 m?? [facility] Comment: This patient's estimated GFR [...] In Lab Rudi Hernandez MD CHEMISTRY ORDERABLES [facility] [place] [address] * POCT Glucose (03/29/2024 4:11 AM EDT) Glucose, POC 195 65 - 199 mg/dL [facility] Comment: Supplemental ranges: <140 mg/dL before meals <180 mg/dL all other times of the day Blood 03/29/2024 4:11 AM EDT 03/29/2024 4:11 AM EDT Rudi Hernandez MD POINT OF CARE TEST O ELKIN Performing Organization Address [facility] Co de Phone Number [facility] [place] [address] * POCT Glucose (03/29/2024 12:05 AM EDT) Glucose, POC 187 65 - 199 mg/dL [facility] Comment: Supplemental ranges: <140 mg/dL before meals <180 mg/dL all other times of the day Blood 03/29/2024 12:0 5 AM EDT 03/29/2024 12:05 AM EDT Rudi Hernandez MD POINT OF CARE TEST O ELKIN Performing Organization Address [facility] de Phone Number [facility] [place] [address] * POCT Glucose (03/28/2024 8:51 PM EDT) Glucose, POC 171 65 - 199 mg/dL [facility] Comment: Supplemental ranges: <140 mg/dL before meals <180 mg/dL all other times of the day Blood 03/28/2024 8:51 PM EDT 03/28/2024 8:51 PM EDT Rudi Hernandez MD POINT OF CARE TEST O ELKIN Performing Organization Address [facility] Co de Phone Number [facility] [place] [address] * (ABNORMAL) Phosphorus (03/28/2024 5:30 PM EDT) Phosphorus 2.0(L) 2.5 - 4.5 mg/dL [facility] Blood 03/28/2024 5:30 PM EDT 03/28/2024 5:36 PM EDT Narrative Resulting Agency Comment Spec In Lab Rudi Hernandez MD CHEMISTRY ORDERABLES [facility] [place] [address] * Magnesium (03/28/2024 5:30 PM EDT) Magnesium 0.78 0.69 - 1.07 mmol/L [facility] Blood 03/28/2024 5:30 PM EDT 03/28/2024 5:36 PM EDT Narrative Resulting Agency Comment Spec In Lab Rudi Hernandez MD CHEMISTRY ORDERABLES Performing Organization Address [facility] Co de Phone Number [facility] [place] [address] * (ABNORMAL) Basic Metabolic Panel (non-fasting) (03/28/2024 5:30 PM EDT) Glucose 194 65 - 199 mg/dL [facility] Comment:Diabetes: >=200 mg/d L plus symptoms Blood Urea Nitrogen 4(L) 10 - 20 mg/dL [facility] Creatinine 0.55(L) 0.80 - 1.50 mg/dL [facility] Sodium 139 135 - 145 mmol/L [facility] Potassium 3.2(L) 3.5 - 5.0 mmol/L [facility] Comment: Please note: ??Patients with WBC >100,000 may have falsely elevated Potassium levels. ??For accurate Potassium quantification in these patients send serum separator tube (gold top) for subsequent determinations. ??Contact the Clinical Chemistry Laboratory if there are any questions. Chloride 100 98 - 107 mmol/L [facility] Carbon Dioxide 31 22 - 31 mmol/L [facility] Anion Gap 8 5 - 15 mmol/L [facility] Calcium 8.4(L) 8.5 - 10.5 mg/dL [facility] Est Glomerular Filtration Rate 121 >=60 mL/min/1. 73 m?? [facility] Comment: This patient's estimated GFR [...] Hernandez MD CHEMISTRY ORDERABLES Performing Organization Address [facility] Co de Phone Number [facility] [place] [address] * POCT Glucose (03/28/2024 4:10 PM EDT) Glucose, POC 164 65 - 199 mg/dL [facility] Comment: Supplemental ranges: <140 mg/dL before meals <180 mg/dL all other times of the day Blood 03/28/2024 4:10 PM EDT 03/28/2024 4:10 PM EDT Rudi Hernandez MD POINT OF CARE TEST O RDERABLES Performing Organization Address [facility]/ZIP Co de Phone Number [facility] [place] [address] * (ABNORMAL) POCT Glucose (03/28/2024 12:00 PM EDT) Glucose, POC 209(H) 65 - 199 mg/dL [facility] Comment: Supplemental ranges: <140 mg/dL before meals <180 mg/dL all other times of the day Blood 03/28/2024 12:0 0 PM EDT 03/28/2024 12:00 PM EDT Rudi Hernandez MD POINT OF CARE TEST O RDERABLES [facility] [place] [address] * POCT Glucose (03/28/2024 7:41 AM EDT) Glucose, POC 193 65 - 199 mg/dL [facility] Comment: Supplemental ranges: <140 mg/dL before meals <180 mg/dL all other times of the day Blood 03/28/2024 7:41 AM EDT 03/28/2024 7:41 AM EDT Rudi Hernandez MD POINT OF CARE TEST O RDLIAT Performing Organization Address [facility] Co de Phone Number [facility] [place] [address] * Phosphorus (03/28/2024 7:35 AM EDT) Phosphorus 2.6 2.5 - 4.5 mg/dL [facility] Blood 03/28/2024 7:35 AM EDT 03/28/2024 7:51 AM EDT Narrative Resulting Agency Comment Spec In Lab Rudi Hernandez MD CHEMISTRY ORDERABLES Performing Organization Address [facility] Co de Phone Number [facility] [place] [address] * Magnesium (03/28/2024 7:35 AM EDT) Magnesium 0.78 0.69 - 1.07 mmol/L [facility] Blood 03/28/2024 7:35 AM EDT 03/28/2024 7:51 AM EDT Narrative Resulting Agency Comment Spec In Lab Rudi Hernandez MD CHEMISTRY ORDERABLES Performing Organization Address [facility]/ZIP Co de Phone Number [facility] [place] [address] * (ABNORMAL) Basic Metabolic Panel (non-fasting) (03/28/2024 7:35 AM EDT) Glucose 215(H) 65 - 199 mg/dL [facility] Comment:Diabetes: >=200 mg/d L plus symptoms Blood Urea Nitrogen 3(L) 10 - 20 mg/dL [facility] Creatinine 0.56(L) 0.80 - 1.50 mg/dL [facility] Sodium 140 135 - 145 mmol/L [facility] Potassium 3.3(L) 3.5 - 5.0 mmol/L [facility] Comment: Please note: ??Patients with WBC >100,000 may have falsely elevated Potassium levels. ??For accurate Potassium quantification in these patients send serum separator tube (gold top) for subsequent determinations. ??Contact the Clinical Chemistry Laboratory if there are any questions. Chloride 100 98 - 107 mmol/L [facility] Carbon Dioxide 29 22 - 31 mmol/L [facility] Anion Gap 11 5 - 15 mmol/L [facility] Calcium 8.3(L) 8.5 - 10.5 mg/dL [facility] Est Glomerular Filtration Rate 121 >=60 mL/min/1. 73 m?? [facility] Comment: This patient's estimated GFR [...] In Lab Rudi Hernandez MD CHEMISTRY ORDERABLES [facility] [place] [id number] * POCT Glucose (03/28/2024 4:14 AM EDT) Glucose, POC 194 65 - 199 mg/dL [facility] Comment: Supplemental ranges: <140 mg/dL before meals <180 mg/dL all other times of the day Blood 03/28/2024 4:14 AM EDT 03/28/2024 4:14 AM EDT Rudi Hernandez MD POINT OF CARE TEST O ELKIN Performing Organization Address City/[facility]/ZIP Co de Phone Number [facility] [place] [address] * POCT Glucose (03/28/2024 12:36 AM EDT) Glucose, POC 196 65 - 199 mg/dL [facility] Comment: Supplemental ranges: <140 mg/dL before meals <180 mg/dL all other times of the day Blood 03/28/2024 12:3 6 AM EDT 03/28/2024 12:36 AM EDT Rudi Hernandez MD POINT OF CARE TEST O ELKIN [facility] [place] [address] * (ABNORMAL) Hemogram (03/28/2024 12:30 AM EDT) White Blood Cell 5.4 4.0 - 9.5 x10(3)/ L [facility] Red Blood Cell 4.89 4.58 - 5.54 x10(6)/mc L [facility] Hemoglobin 11.5(L) 13.7 - 16.5 g/dL [facility] Hematocrit 34.8(L) 40.5 - 48.5 % [facility] Mean Cell Volume 71.2(L) 82.9 - 93.1 fL [facility] Mean Cell Hemoglobin 23.5(L) 27.5 - 32.1 pg [facility] Mean Cell Hemoglobin Concentration 33.0 32.0 - 35.7 g/dL [facility] Platelet 185 145 - 357 x10(3)/mc L [facility] RDW Standard Deviation 41.1 36.0 - 45.0 fL [facility] RDW coefficient of variation 16.1(H) 11.4 - 13.8 % [facility] Mean Platelet Volume 9.6 7.6 - 12.9 fL [facility] NRBC% auto 0.0 % [facility] NRBC Absolute 0.000 0.000 - 0.000 x10(3)/mc L [facility] Blood 03/28/2024 12:3 0 AM EDT 03/28/2024 12:59 AM EDT Narrative Resulting Agency Comment Spec In Lab Rudi Hernandez MD HEMATOLOGY ORDERABLE S [facility] [place] [address] * POCT Glucose (03/27/2024 8:24 PM EDT) Glucose, POC 162 65 - 199 mg/dL [facility] Comment: Supplemental ranges: <140 mg/dL before meals <180 mg/dL all other times of the day Blood 03/27/2024 8:24 PM EDT 03/27/2024 8:24 PM EDT Rudi Hernandez MD POINT OF CARE TEST O RDERABLES [facility] [place] [address] * Phosphorus (03/27/2024 6:10 PM EDT) Phosphorus 2.5 2.5 - 4.5 mg/dL [facility] Blood 03/27/2024 6:10 PM EDT 03/27/2024 6:25 PM EDT Narrative Resulting Agency Comment Spec In Lab Rudi Hernandez MD CHEMISTRY ORDERABLES Performing Organization Address City/[facility]/ZIP Co de Phone Number [facility] [place] [address] * Magnesium (03/27/2024 6:10 PM EDT) Magnesium 0.74 0.69 - 1.07 mmol/L [facility] Blood 03/27/2024 6:10 PM EDT 03/27/2024 6:25 PM EDT Narrative Resulting Agency Comment Spec In Lab Rudi Hernandez MD CHEMISTRY ORDERABLES Performing Organization Address [facility] Co de Phone Number [facility] [place] [address] * (ABNORMAL) Basic Metabolic Panel (non-fasting) (03/27/2024 6:10 PM EDT) Glucose 153 65 - 199 mg/dL [facility] Comment:Diabetes: >=200 mg/d L plus symptoms Blood Urea Nitrogen 2(L) 10 - 20 mg/dL [facility] Creatinine 0.65(L) 0.80 - 1.50 mg/dL [facility] Sodium 142 135 - 145 mmol/L [facility] Potassium 3.1(L) 3.5 - 5.0 mmol/L [facility] Comment: Please note: ??Patients with WBC >100,000 may have falsely elevated Potassium levels. ??For accurate Potassium quantification in these patients send serum separator tube (gold top) for subsequent determinations. ??Contact the Clinical Chemistry Laboratory if there are any questions. Chloride 105 98 - 107 mmol/L [facility] Carbon Dioxide 27 22 - 31 mmol/L [facility] Anion Gap 10 5 - 15 mmol/L [facility] Calcium 8.4(L) 8.5 - 10.5 mg/dL [facility] Est Glomerular Filtration Rate 116 >=60 mL/min/1. 73 m?? [facility] Comment: This patient's estimated GFR [...] Hernandez MD CHEMISTRY ORDERABLES Performing Organization Address [facility]/ZIP Co de Phone Number [facility] [place] [address] * POCT Glucose (03/27/2024 3:53 PM EDT) Glucose, POC 144 65 - 199 mg/dL [facility] Comment: Supplemental ranges: <140 mg/dL before meals <180 mg/dL all other times of the day Blood 03/27/2024 3:53 PM EDT 03/27/2024 3:53 PM EDT Rudi Hernandez MD POINT OF CARE TEST O RDERABLES [facility] [place] [address] * POCT Glucose (03/27/2024 12:04 PM EDT) Glucose, POC 155 65 - 199 mg/dL [facility] Comment: Supplemental ranges: <140 mg/dL before meals <180 mg/dL all other times of the day Blood 03/27/2024 12:0 4 PM EDT 03/27/2024 12:04 PM EDT Rudi Hernandez MD POINT OF CARE TEST O RDLIAT Performing Organization Address City/[facility]/ZIP Co de Phone Number [facility] [place] [address] * POCT Glucose (03/27/2024 8:00 AM EDT) Glucose, POC 154 65 - 199 mg/dL [facility] Comment: Supplemental ranges: <140 mg/dL before meals <180 mg/dL all other times of the day Blood 03/27/2024 8:00 AM EDT 03/27/2024 8:00 AM EDT Rudi Hernandez MD POINT OF CARE TEST O ELKIN Performing Organization Address [facility] Co de Phone Number [facility] [place] [address] * (ABNORMAL) Basic Metabolic Panel (non-fasting) (03/27/2024 5:22 AM EDT) Glucose 178 65 - 199 mg/dL [facility] Comment:Diabetes: >=200 mg/d L plus symptoms Blood Urea Nitrogen 3(L) 10 - 20 mg/dL [facility] Creatinine 0.70(L) 0.80 - 1.50 mg/dL [facility] Sodium 142 135 - 145 mmol/L [facility] Potassium 3.6 3.5 - 5.0 mmol/L [facility] Comment: Please note: ??Patients with WBC >100,000 may have falsely elevated Potassium levels. ??For accurate Potassium quantification in these patients send serum separator tube (gold top) for subsequent determinations. ??Contact the Clinical Chemistry Laboratory if there are any questions. Chloride 109(H) 98 - 107 mmol/L [facility] Carbon Dioxide 24 22 - 31 mmol/L [facility] Anion Gap 9 5 - 15 mmol/L [facility] Calcium 8.5 8.5 - 10.5 mg/dL [facility] Est Glomerular Filtration Rate 113 >=60 mL/min/1. 73 m?? [facility] Comment: This patient's estimated GFR [...] Hernandez MD CHEMISTRY ORDERABLES Performing Organization Address [facility] de Phone Number [facility] [place] [address] * Phosphorus (03/27/2024 5:22 AM EDT) Phosphorus 2.8 2.5 - 4.5 mg/dL [facility] Blood 03/27/2024 5:22 AM EDT 03/27/2024 5:35 AM EDT Narrative Resulting Agency Comment Spec In Lab Rudi Hernandez MD CHEMISTRY ORDERABLES Performing Organization Address [facility] Co de Phone Number [facility] [place] [address] * Magnesium (03/27/2024 5:22 AM EDT) Magnesium 0.78 0.69 - 1.07 mmol/L [facility] Blood 03/27/2024 5:22 AM EDT 03/27/2024 5:35 AM EDT Narrative Resulting Agency Comment Spec In Lab Rudi Hernandez MD CHEMISTRY ORDERABLES Performing Organization Address [facility]/ZIP Co de Phone Number [facility] [place] [address] * POCT Glucose (03/27/2024 4:53 AM EDT) Glucose, POC 156 65 - 199 mg/dL [facility] Comment: Supplemental ranges: <140 mg/dL before meals <180 mg/dL all other times of the day Blood 03/27/2024 4:53 AM EDT 03/27/2024 4:53 AM EDT Rudi Hernandez MD POINT OF CARE TEST O RDERABLES Performing Organization Address [facility] Co de Phone Number [facility] [place] [address] * Phosphorus (03/27/2024 12:14 AM EDT) Phosphorus 2.8 2.5 - 4.5 mg/dL [facility] Blood 03/27/2024 12:1 4 AM EDT 03/27/2024 12:42 AM EDT Narrative Resulting Agency Comment Spec In Lab Rudi Hernandez MD CHEMISTRY ORDERABLES Performing Organization Address [facility] Co de Phone Number [facility] [place] [address] * Magnesium (03/27/2024 12:14 AM EDT) Magnesium 0.79 0.69 - 1.07 mmol/L [facility] Blood 03/27/2024 12:1 4 AM EDT 03/27/2024 12:42 AM EDT Narrative Resulting Agency Comment Spec In Lab Rudi Hernandez MD CHEMISTRY ORDERABLES Performing Organization Address [facility] Co de Phone Number [facility] [place] [address] * Differential, Automated (03/27/2024 12:14 AM EDT) Neutrophil % 69.7 % [facility] Neutrophil Absolute 3.73 1.70 - 6.10 x10(3)/[facility] LABORATORY Lymph % 17.6 % [facility] Lymphocytes Abs 0.9 0.9 - 3.2 x10(3)/[facility] LABORATORY Monocyte % 9.7 % [facility] Monocyte Abs 0.5 0.3 - 0.9 x10(3)/[facility] LABORATORY Eos % 1.9 % [facility] Eosinophils Abs 0.1 0.0 - 0.4 x10(3)/[facility] LABORATORY Basophil % 0.7 % [facility] Baso Absolute 0.0 0.0 - 0.1 x10(3)/[facility] LABORATORY Immature Gran % 0.40 % [facility] Comment: Immature granulocytes(IG's)percentage and absolute count will include metamyelocytes, myelocytes, and promyelocytes. Blood smears from CBCs yielding IG's will be scanned manually for concordance. If this scan disagrees with the automated IG or if promyelocytes are noted, a manual differential will be performed. Immature Gran Absolute 0.02 0.00 - 0.04 x10(3)/[facility] LABORATORY Blood Venous Draw / Unknown 03/27/2024 12:14 AM EDT 03/27/2024 12:40 AM EDT Narrative Resulting Agency Comment Spec In Lab Janette Austin MD HEMATOLOGY ORDERABLE S [facility] [place] [address] * (ABNORMAL) Hemogram (03/27/2024 12:14 AM EDT) [facility] White Blood Cell 5.4 4.0 - 9.5 x10(3)/ L [facility] Red Blood Cell 5.08 4.58 - 5.54 x10(6)/[facility] LABORATORY Hemoglobin 12.0(L) 13.7 - 16.5 g/dL [facility] Hematocrit 36.7(L) 40.5 - 48.5 % [facility] Mean Cell Volume 72.2(L) 82.9 - 93.1 fL [facility] Mean Cell Hemoglobin 23.6(L) 27.5 - 32.1 pg [facility] Mean Cell Hemoglobin Concentration 32.7 32.0 - 35.7 g/dL [facility] Platelet 215 145 - 357 x10(3)/mc L [facility] RDW Standard Deviation 41.8 36.0 - 45.0 [facility] LABORATORY RDW coefficient of variation 16.3(H) 11.4 - 13.8 % [facility] Mean Platelet Volume 9.8 7.6 - 12.9 [facility] LABORATORY NRBC% auto 0.0 % [facility] NRBC Absolute 0.000 0.000 - 0.000 x10(3)/mc L [facility] Blood Venous Draw / Unknown 03/27/2024 12:14 AM EDT 03/27/2024 12:40 AM EDT Narrative Resulting Agency Comment Spec In Lab Janette Austin MD HEMATOLOGY ORDERABLE S [facility] [place] [address] * Lavender Tube HOLD (03/27/2024 12:14 AM EDT) Lavender Hold Sample in lab. [facility] Blood Venous Draw / Unknown 03/27/2024 12:14 AM EDT 03/27/2024 12:40 AM EDT Chalino Cristina MD HEMATOLOGY ORDERABLE S [facility] [place] [address] * (ABNORMAL) Basic Metabolic Panel (non-fasting) (03/27/2024 12:14 AM EDT) Glucose 154 65 - 199 mg/dL [facility] Comment:Diabetes: >=200 mg/d L plus symptoms Blood Urea Nitrogen 3(L) 10 - 20 mg/dL [facility] Creatinine 0.71(L) 0.80 - 1.50 mg/dL [facility] Sodium 144 135 - 145 mmol/L [facility] Potassium 3.5 3.5 - 5.0 mmol/L [facility] Comment: Please note: ??Patients with WBC >100,000 may have falsely elevated Potassium levels. ??For accurate Potassium quantification in these patients send serum separator tube (gold top) for subsequent determinations. ??Contact the Clinical Chemistry Laboratory if there are any questions. Chloride 111(H) 98 - 107 mmol/L [facility] Carbon Dioxide 23 22 - 31 mmol/L [facility] Anion Gap 10 5 - 15 mmol/L [facility] Calcium 8.5 8.5 - 10.5 mg/dL [facility] Est Glomerular Filtration Rate 112 >=60 mL/min/1. 73 m?? [facility] Comment: This patient's estimated GFR [...] In Lab Rudi Hernandez MD CHEMISTRY ORDERABLES [facility] [place] [address] * POCT Glucose (03/27/2024 12:10 AM EDT) Glucose, POC 136 65 - 199 mg/dL [facility] Comment: Supplemental ranges: <140 mg/dL before meals <180 mg/dL all other times of the day Blood 03/27/2024 12:1 0 AM EDT 03/27/2024 12:10 AM EDT Rudi Hernandez MD POINT OF CARE TEST O RDERABLES Performing Organization Address [facility] Co de Phone Number [facility] [place] [address] * Phosphorus (03/26/2024 9:33 PM EDT) Phosphorus 2.8 2.5 - 4.5 mg/dL [facility] Blood 03/26/2024 9:33 PM EDT 03/26/2024 9:37 PM EDT Narrative Resulting Agency Comment Spec In Lab Rudi Hernandez MD CHEMISTRY ORDERABLES Performing Organization Address [facility] Co de Phone Number [facility] [place] [address] * Magnesium (03/26/2024 9:33 PM EDT) Magnesium 0.80 0.69 - 1.07 mmol/L [facility] Blood 03/26/2024 9:33 PM EDT 03/26/2024 9:37 PM EDT Narrative Resulting Agency Comment Spec In Lab Rudi Hernandez MD CHEMISTRY ORDERABLES Performing Organization Address [facility] Co de Phone Number [facility] [place] [address] * POCT Glucose (03/26/2024 8:02 PM EDT) Glucose, POC 128 65 - 199 mg/dL [facility] Comment: Supplemental ranges: <140 mg/dL before meals <180 mg/dL all other times of the day Blood 03/26/2024 8:02 PM EDT 03/26/2024 8:02 PM EDT Rudi Hernandez MD POINT OF CARE TEST O RDERABLES Performing Organization Address [facility] Co de Phone Number [facility] [place] [address] * POCT Glucose (03/26/2024 5:05 PM EDT) Glucose, POC 144 65 - 199 mg/dL [facility] Comment: Supplemental ranges: <140 mg/dL before meals <180 mg/dL all other times of the day Blood 03/26/2024 5:05 PM EDT 03/26/2024 5:05 PM EDT Rudi Hernandez MD POINT OF CARE TEST O RDERABLES Performing Organization Address [facility] Co de Phone Number [facility] [place] [address] * (ABNORMAL) Phosphorus (03/26/2024 4:30 PM EDT) Phosphorus 2.3(L) 2.5 - 4.5 mg/dL [facility] Blood 03/26/2024 4:30 PM EDT 03/26/2024 4:48 PM EDT Narrative Resulting Agency Comment Spec In Lab Rudi Hernandez MD CHEMISTRY ORDERABLES Performing Organization Address [facility] Co de Phone Number [facility] [place] [address] * Magnesium (03/26/2024 4:30 PM EDT) Magnesium 0.81 0.69 - 1.07 mmol/L [facility] Blood 03/26/2024 4:30 PM EDT 03/26/2024 4:48 PM EDT Narrative Resulting Agency Comment Spec In Lab Rudi Hernandez MD CHEMISTRY ORDERABLES [facility] [place] [address] * (ABNORMAL) Basic Metabolic Panel (non-fasting) (03/26/2024 4:30 PM EDT) Glucose 164 65 - 199 mg/dL [facility] Comment:Diabetes: >=200 mg/d L plus symptoms Blood Urea Nitrogen 4(L) 10 - 20 mg/dL [facility] Creatinine 0.66(L) 0.80 - 1.50 mg/dL [facility] Sodium 140 135 - 145 mmol/L [facility] Potassium 3.6 3.5 - 5.0 mmol/L [facility] Comment: Please note: ??Patients with WBC >100,000 may have falsely elevated Potassium levels. ??For accurate Potassium quantification in these patients send serum separator tube (gold top) for subsequent determinations. ??Contact the Clinical Chemistry Laboratory if there are any questions. Chloride 110(H) 98 - 107 mmol/L [facility] Carbon Dioxide 19(L) 22 - 31 mmol/L [facility] Anion Gap 11 5 - 15 mmol/L [facility] Calcium 8.4(L) 8.5 - 10.5 mg/dL [facility] Est Glomerular Filtration Rate 115 >=60 mL/min/1. 73 m?? [facility] Comment: This patient's estimated GFR [...] In Lab Rudi Hernandez MD CHEMISTRY ORDERABLES [facility] [place] [address] * Place PICC Line: Contact Vascular Access Page 1034 Extremity to exclude: No restrictions; Is PICC [...] to the planned procedure. Hand Hygiene: The daycare teacher did perform hand hygiene prior to line insertion. Catheter type: PICC Lot number: [id number] Procedure Technique: Skin was prepped with chlorhexidine. [...] Guidance (IV Team) (03/26/2024 4:02 PM EDT) [employer] WORKSTATION ID [id number] RAD Anatomical Region Laterality Modality N/A Radio [...] who have questions please contact the health doggy daycare activities director that requested your imaging first. ? Electronically signed by: Bryan Machado MD, [facility] ??([phone]), at 03/26/2024 4:17 PM Narrative 03/26/2024 4:17 [...] patients who have questions please contactthe health doggy daycare activities director that requested your imaging first. Electronically signed by: Bryan Machado MD, [facility]([phone]), at 03/26/2024 4:17 PM Rudi Hernandez MD IMG FLUORO ORDERABLE S * POCT Glucose (03/26/2024 1:04 PM EDT) [facility] Signature Glucose, POC 126 65 - 199 mg/dL [facility] Comment: Supplemental ranges: <140 mg/dL before meals <180 mg/dL all other times of the day Blood 03/26/2024 1:04 PM EDT 03/26/2024 1:04 PM EDT Rudi Hernandez MD POINT OF CARE TEST O RDERABLES [facility] [place] [address] * (ABNORMAL) Phosphorus (03/26/2024 11:37 AM EDT) [facility] Phosphorus 1.3(Critic al) 2.5 - 4.5 mg/dL [facility] Comment:called by tmp /read back by (yang fajardo)/ 03/26/24 @1247 Blood 03/26/2024 11:3 7 AM EDT 03/26/2024 11:53 AM EDT Narrative Resulting Agency Comment Spec In Lab Rudi Hernandez MD CHEMISTRY ORDERABLES Performing Organization Address City/[facility]/ZIP Co de Phone Number [facility] [place] [address] * Magnesium (03/26/2024 11:37 AM EDT) [facility] Magnesium 0.87 0.69 - 1.07 mmol/L [facility] Blood 03/26/2024 11:3 7 AM EDT 03/26/2024 11:53 AM EDT Narrative Resulting Agency Comment Spec In Lab Rudi Hernandez MD CHEMISTRY ORDERABLES Performing Organization Address City/[facility]/ZIP Co de Phone Number [facility] [place] [address] * (ABNORMAL) Basic Metabolic Panel (non-fasting) (03/26/2024 11:37 AM EDT) [facility] Glucose 176 65 - 199 mg/dL [facility] Comment:Diabetes: >=200 mg/d L plus symptoms Blood Urea Nitrogen 4(L) 10 - 20 mg/dL [facility] Creatinine 0.69(L) 0.80 - 1.50 mg/dL [facility] Sodium 143 135 - 145 mmol/L [facility] Potassium 3.4(L) 3.5 - 5.0 mmol/L [facility] Comment: Please note: ??Patients with WBC >100,000 may have falsely elevated Potassium levels. ??For accurate Potassium quantification in these patients send serum separator tube (gold top) for subsequent determinations. ??Contact the Clinical Chemistry Laboratory if there are any questions. Chloride 113(H) 98 - 107 mmol/L [facility] Carbon Dioxide 21(L) 22 - 31 mmol/L [facility] Anion Gap 9 5 - 15 mmol/L [facility] Calcium 8.7 8.5 - 10.5 mg/dL [facility] Est Glomerular Filtration Rate 113 >=60 mL/min/1. 73 m?? [facility] Comment: This patient's estimated GFR [...] Hernandez MD CHEMISTRY ORDERABLES Performing Organization Address [facility]/ZIP Co de Phone Number [facility] [place] [address] * POCT Glucose (03/26/2024 11:36 AM EDT) Glucose, POC 155 65 - 199 mg/dL [facility] Comment: Supplemental ranges: <140 mg/dL before meals <180 mg/dL all other times of the day Blood 03/26/2024 11:3 6 AM EDT 03/26/2024 11:36 AM EDT Rudi Hernandez MD POINT OF CARE TEST O RDERABLES [facility] [place] [address] * POCT Glucose (03/26/2024 10:34 AM EDT) Glucose, POC 180 65 - 199 mg/dL [facility] Comment: Supplemental ranges: <140 mg/dL before meals <180 mg/dL all other times of the day Blood 03/26/2024 10:3 4 AM EDT 03/26/2024 10:34 AM EDT Rudi Hernandez MD POINT OF CARE TEST O RDERABLES [facility] [place] [address] * (ABNORMAL) POCT Glucose (03/26/2024 9:37 AM EDT) Glucose, POC 240(H) 65 - 199 mg/dL [facility] Comment: Supplemental ranges: <140 mg/dL before meals <180 mg/dL all other times of the day Blood 03/26/2024 9:37 AM EDT 03/26/2024 9:37 AM EDT Rudi Hernandez MD POINT OF CARE TEST O RDERABLES [facility] [place] [address] * POCT Glucose (03/26/2024 7:57 AM EDT) Glucose, POC 197 65 - 199 mg/dL [facility] Comment: Supplemental ranges: <140 mg/dL before meals <180 mg/dL all other times of the day Blood 03/26/2024 7:57 AM EDT 03/26/2024 7:57 AM EDT Rudi Hernandez MD POINT OF CARE TEST O RDERABLES [facility] [place] [address] * (ABNORMAL) POCT Glucose (03/26/2024 6:41 AM EDT) Glucose, POC 226(H) 65 - 199 mg/dL [facility] Comment: Supplemental ranges: <140 mg/dL before meals <180 mg/dL all other times of the day Blood 03/26/2024 6:41 AM EDT 03/26/2024 6:41 AM EDT Rudi Hernandez MD POINT OF CARE TEST O RDERABLES Performing Organization Address City/[facility]/ZIP Co de Phone Number [facility] [place] [address] * (ABNORMAL) Phosphorus (03/26/2024 5:19 AM EDT) Phosphorus 1.3(Critic al) 2.5 - 4.5 mg/dL [facility] Comment:called by MANDY /jay zhu ack by Ja Elder / 03/26/24 0615 Blood 03/26/2024 5:19 AM EDT 03/26/2024 5:29 AM EDT Narrative Resulting Agency Comment Spec In Lab Rudi Hernandez MD CHEMISTRY ORDERABLES Performing Organization Address [facility] Co de Phone Number [facility] [place] [address] * Magnesium (03/26/2024 5:19 AM EDT) Magnesium 0.76 0.69 - 1.07 mmol/L [facility] Blood 03/26/2024 5:19 AM EDT 03/26/2024 5:29 AM EDT Narrative Resulting Agency Comment Spec In Lab Rudi Hernandez MD CHEMISTRY ORDERABLES Performing Organization Address [facility]/ZIP Co de Phone Number [facility] [place] [address] * (ABNORMAL) Basic Metabolic Panel (non-fasting) (03/26/2024 5:19 AM EDT) Glucose 241(H) 65 - 199 mg/dL [facility] Comment:Diabetes: >=200 mg/d L plus symptoms Blood Urea Nitrogen 5(L) 10 - 20 mg/dL [facility] Creatinine 0.70(L) 0.80 - 1.50 mg/dL [facility] Sodium 138 135 - 145 mmol/L [facility] Potassium 3.3(L) 3.5 - 5.0 mmol/L [facility] Comment: Please note: ??Patients with WBC >100,000 may have falsely elevated Potassium levels. ??For accurate Potassium quantification in these patients send serum separator tube (gold top) for subsequent determinations. ??Contact the Clinical Chemistry Laboratory if there are any questions. Chloride 109(H) 98 - 107 mmol/L [facility] Carbon Dioxide 20(L) 22 - 31 mmol/L [facility] Anion Gap 9 5 - 15 mmol/L [facility] Calcium 8.9 8.5 - 10.5 mg/dL [facility] Est Glomerular Filtration Rate 113 >=60 mL/min/1. 73 m?? [facility] Comment: This patient's estimated GFR [...] In Lab Rudi Hernandez MD CHEMISTRY ORDERABLES [facility] [place] [address] * (ABNORMAL) POCT Glucose (03/26/2024 3:55 AM EDT) Glucose, POC 206(H) 65 - 199 mg/dL [facility] Comment: Supplemental ranges: <140 mg/dL before meals <180 mg/dL all other times of the day Blood 03/26/2024 3:55 AM EDT 03/26/2024 3:55 AM EDT Rudi Hernandez MD POINT OF CARE TEST O RDERABLES Performing Organization Address City/[facility]/ZIP Co de Phone Number [facility] [place] [address] * (ABNORMAL) POCT Glucose (03/26/2024 2:33 AM EDT) Glucose, POC 220(H) 65 - 199 mg/dL [facility] Comment: Supplemental ranges: <140 mg/dL before meals <180 mg/dL all other times of the day Blood 03/26/2024 2:33 AM EDT 03/26/2024 2:33 AM EDT Rudi Hernandez MD POINT OF CARE TEST O RDERABLES Performing Organization Address City/[facility]/ZIP Co de Phone Number [facility] [place] [address] * (ABNORMAL) Differential, Automated (03/26/2024 2:29 AM EDT) Neutrophil % 72.9 % [facility] Neutrophil Absolute 3.32 1.70 - 6.10 x10(3)/mc L [facility] Lymph % 17.8 % [facility] Lymphocytes Abs 0.8(L) 0.9 - 3.2 x10(3)/mc L [facility] Monocyte % 6.4 % [facility] Monocyte Abs 0.3 0.3 - 0.9 x10(3)/mc L [facility] Eos % 1.5 % [facility] Eosinophils Abs 0.1 0.0 - 0.4 x10(3)/[facility] Basophil % 0.7 % [facility] Baso Absolute 0.0 0.0 - 0.1 x10(3)/[facility] LAB[facility] Immature Gran % 0.70 % [facility] Comment: Immature granulocytes(IG's)percentage and absolute count will include metamyelocytes, myelocytes, and promyelocytes. Blood smears from CBCs yielding IG's will be scanned manually for concordance. If this scan disagrees with the automated IG or if promyelocytes are noted, a manual differential will be performed. Immature Gran Absolute 0.03 0.00 - 0.04 x10(3)/[facility] Blood 03/26/2024 2:29 AM EDT 03/26/2024 2:50 AM EDT Narrative Resulting Agency Comment Spec In Lab Janette Austin MD HEMATOLOGY ORDERABLE S [facility] [place] [address] * (ABNORMAL) Hemogram (03/26/2024 2:29 AM EDT) White Blood Cell 4.6 4.0 - 9.5 x10(3)/[facility] Red Blood Cell 5.61(H) 4.58 - 5.54 x10(6)/[facility] Hemoglobin 13.6(L) 13.7 - 16.5 g/dL [facility] Hematocrit 40.7 40.5 - 48.5 % [facility] Mean Cell Volume 72.5(L) 82.9 - 93.1 fL [facility] Mean Cell Hemoglobin 24.2(L) 27.5 - 32.1 pg [facility] Mean Cell Hemoglobin Concentration 33.4 32.0 - 35.7 g/dL [facility] Platelet 220 145 - 357 x10(3)/mc L [facility] RDW Standard Deviation 41.1 36.0 - 45.0 fL [facility] RDW coefficient of variation 16.1(H) 11.4 - 13.8 % [facility] Mean Platelet Volume 9.4 7.6 - 12.9 fL [facility] NRBC% auto 0.0 % [facility] NRBC Absolute 0.000 0.000 - 0.000 x10(3)/mc L [facility] Blood 03/26/2024 2:29 AM EDT 03/26/2024 2:50 AM EDT Narrative Resulting Agency Comment Spec In Lab Janette Austin MD HEMATOLOGY ORDERABLE S Performing Organization Address City/[facility]/ZIP Co de Phone Number [facility] [place] [address] * (ABNORMAL) Phosphorus (03/26/2024 2:29 AM EDT) Phosphorus 1.0(Critic al) 2.5 - 4.5 mg/dL [facility] Comment:called by MANDY /jay ortiz by Traci Santos / 03/26/24 0333 Blood 03/26/2024 2:29 AM EDT 03/26/2024 2:50 AM EDT Narrative Resulting Agency Comment Spec In Lab Rudi Hernandez MD CHEMISTRY ORDERABLES [facility] [place] [address] * Magnesium (03/26/2024 2:29 AM EDT) Magnesium 0.76 0.69 - 1.07 mmol/L [facility] Blood 03/26/2024 2:29 AM EDT 03/26/2024 2:50 AM EDT Narrative Resulting Agency Comment Spec In Lab Rudi Hernandez MD CHEMISTRY ORDERABLES [facility] [place] [address] * (ABNORMAL) Basic Metabolic Panel (non-fasting) (03/26/2024 2:29 AM EDT) Glucose 281(H) 65 - 199 mg/dL [facility] Comment:Diabetes: >=200 mg/d L plus symptoms Blood Urea Nitrogen 5(L) 10 - 20 mg/dL [facility] Creatinine 0.71(L) 0.80 - 1.50 mg/dL [facility] Sodium 140 135 - 145 mmol/L [facility] Potassium 3.2(L) 3.5 - 5.0 mmol/L [facility] Comment: Please note: ??Patients with WBC >100,000 may have falsely elevated Potassium levels. ??For accurate Potassium quantification in these patients send serum separator tube (gold top) for subsequent determinations. ??Contact the Clinical Chemistry Laboratory if there are any questions. Chloride 110(H) 98 - 107 mmol/L [facility] Carbon Dioxide 19(L) 22 - 31 mmol/L [facility] Anion Gap 11 5 - 15 mmol/L [facility] Calcium 9.0 8.5 - 10.5 mg/dL [facility] Est Glomerular Filtration Rate 112 >=60 mL/min/1. 73 m?? [facility] Comment: This patient's estimated GFR [...] Hernandez MD CHEMISTRY ORDERABLES Performing Organization Address [facility] Co de Phone Number [facility] [place] [address] * (ABNORMAL) POCT Glucose (03/26/2024 12:05 AM EDT) Glucose, POC 321(H) 65 - 199 mg/dL [facility] Comment: Supplemental ranges: <140 mg/dL before meals <180 mg/dL all other times of the day Blood 03/26/2024 12:0 5 AM EDT 03/26/2024 12:05 AM EDT Rudi Hernandez MD POINT OF CARE TEST O RDERABLES Performing Organization Address [facility] Co de Phone Number [facility] [place] [address] * (ABNORMAL) Phosphorus (03/25/2024 10:27 PM EDT) Phosphorus 1.2(Critic al) 2.5 - 4.5 mg/dL [facility] Comment:called by MANDY /jay ortiz by Jyoti Nelson / 03/25/24 7836 Blood 03/25/2024 10:2 7 PM EDT 03/25/2024 10:33 PM EDT Narrative Resulting Agency Comment Spec In Lab Rudi Hernandez MD CHEMISTRY ORDERABLES Performing Organization Address [facility] Co de Phone Number [facility] [place] [address] * Magnesium (03/25/2024 10:27 PM EDT) Magnesium 0.80 0.69 - 1.07 mmol/L [facility] Blood 03/25/2024 10:2 7 PM EDT 03/25/2024 10:33 PM EDT Narrative Resulting Agency Comment Spec In Lab Rudi Hernandez MD CHEMISTRY ORDERABLES [facility] [place] [address] * (ABNORMAL) Basic Metabolic Panel (non-fasting) (03/25/2024 10:27 PM EDT) Glucose 264(H) 65 - 199 mg/dL [facility] Comment:Diabetes: >=200 mg/d L plus symptoms Blood Urea Nitrogen 6(L) 10 - 20 mg/dL [facility] Creatinine 0.73(L) 0.80 - 1.50 mg/dL [facility] Sodium 140 135 - 145 mmol/L [facility] Potassium 3.4(L) 3.5 - 5.0 mmol/L [facility] Comment: Please note: ??Patients with WBC >100,000 may have falsely elevated Potassium levels. ??For accurate Potassium quantification in these patients send serum separator tube (gold top) for subsequent determinations. ??Contact the Clinical Chemistry Laboratory if there are any questions. Chloride 109(H) 98 - 107 mmol/L [facility] Carbon Dioxide 18(L) 22 - 31 mmol/L [facility] Anion Gap 13 5 - 15 mmol/L [facility] Calcium 8.8 8.5 - 10.5 mg/dL [facility] Est Glomerular Filtration Rate 112 >=60 mL/min/1. 73 m?? [facility] Comment: This patient's estimated GFR [...] Hernandez MD CHEMISTRY ORDERABLES Performing Organization Address City/[facility]/ZIP Co de Phone Number [facility] [place] [address] * POCT Glucose (03/25/2024 8:11 PM EDT) Glucose, POC 198 65 - 199 mg/dL [facility] Comment: Supplemental ranges: <140 mg/dL before meals <180 mg/dL all other times of the day Blood 03/25/2024 8:11 PM EDT 03/25/2024 8:11 PM EDT Rudi Hernandez MD POINT OF CARE TEST O RDERABLES Performing Organization Address [facility] Co de Phone Number [facility] [place] [address] * (ABNORMAL) POCT Glucose (03/25/2024 6:56 PM EDT) Glucose, POC 212(H) 65 - 199 mg/dL [facility] Comment: Supplemental ranges: <140 mg/dL before meals <180 mg/dL all other times of the day Blood 03/25/2024 6:56 PM EDT 03/25/2024 6:56 PM EDT Rudi Hernandez MD POINT OF CARE TEST O RDERAVANNESSA Performing Organization Address [facility]/ZIP Co de Phone Number [facility] [place] [address] * POCT Glucose (03/25/2024 6:07 PM EDT) Glucose, POC 175 65 - 199 mg/dL [facility] Comment: Supplemental ranges: <140 mg/dL before meals <180 mg/dL all other times of the day Blood 03/25/2024 6:07 PM EDT 03/25/2024 6:07 PM EDT Rudi Hernandez MD POINT OF CARE TEST O ELKIN [facility] [place] [address] * POCT Glucose (03/25/2024 5:08 PM EDT) Glucose, POC 150 65 - 199 mg/dL [facility] Comment: Supplemental ranges: <140 mg/dL before meals <180 mg/dL all other times of the day Blood 03/25/2024 5:08 PM EDT 03/25/2024 5:08 PM EDT Rudi Hernandez MD POINT OF CARE TEST O ELKIN Performing Organization Address [facility]/ZIP Co de Phone Number [facility] [place] [address] * POCT Glucose (03/25/2024 4:04 PM EDT) Glucose, POC 176 65 - 199 mg/dL [facility] Comment: Supplemental ranges: <140 mg/dL before meals <180 mg/dL all other times of the day Blood 03/25/2024 4:04 PM EDT 03/25/2024 4:04 PM EDT Rudi Hernandez MD POINT OF CARE TEST O ELKIN Performing Organization Address City/[facility]/ZIP Co de Phone Number [facility] [place] [address] * (ABNORMAL) Basic Metabolic Panel (non-fasting) (03/25/2024 3:25 PM EDT) Glucose 167 65 - 199 mg/dL [facility] Comment:Diabetes: >=200 mg/d L plus symptoms Blood Urea Nitrogen 9(L) 10 - 20 mg/dL [facility] Creatinine 0.78(L) 0.80 - 1.50 mg/dL [facility] Sodium 142 135 - 145 mmol/L [facility] Potassium 3.0(Criti johnie) 3.5 - 5.0 mmol/L [facility] Comment: called by lokesh/read back by Sterling Jane ??on 03/25/24 @ 8904. Please note: ??Patients with WBC >100,000 may have falsely elevated Potassium levels. ??For accurate Potassium quantification in these patients send serum separator tube (gold top) for subsequent determinations. ??Contact the Clinical Chemistry Laboratory if there are any questions. Chloride 110(H) 98 - 107 mmol/L [facility] Carbon Dioxide 14(L) 22 - 31 mmol/L [facility] Comment:results rechecked - rust Anion Gap 18(H) 5 - 15 mmol/L [facility] Calcium 9.3 8.5 - 10.5 mg/dL [facility] Comment:results rechecked - rust Est Glomerular Filtration Rate 109 >=60 mL/min/1. 73 m?? [facility] Comment: This patient's estimated GFR [...] Spec In Lab Gary KIM CHEMISTRY ORDERABLES [facility] [place] [address] * POCT Glucose (03/25/2024 3:01 PM EDT) Glucose, POC 149 65 - 199 mg/dL [facility] Comment: Supplemental ranges: <140 mg/dL before meals <180 mg/dL all other times of the day Blood 03/25/2024 3:01 PM EDT 03/25/2024 3:01 PM EDT Rudi Hernandez MD POINT OF CARE TEST O ELKIN [facility] [place] [address] * POCT Glucose (03/25/2024 2:02 PM EDT) Glucose, POC 179 65 - 199 mg/dL [facility] Comment: Supplemental ranges: <140 mg/dL before meals <180 mg/dL all other times of the day Blood 03/25/2024 2:02 PM EDT 03/25/2024 2:02 PM EDT Rudi Hernandez MD POINT OF CARE TEST O ELKIN [facility] [place] [address] * POCT Glucose (03/25/2024 12:50 PM EDT) Glucose, POC 187 65 - 199 mg/dL [facility] Comment: Supplemental ranges: <140 mg/dL before meals <180 mg/dL all other times of the day Blood 03/25/2024 12:5 0 PM EDT 03/25/2024 12:50 PM EDT Rudi Hernandez MD POINT OF CARE TEST O ELKIN [facility] [place] [address] * POCT Glucose (03/25/2024 11:18 AM EDT) Glucose, POC 146 65 - 199 mg/dL [facility] Comment: Supplemental ranges: <140 mg/dL before meals <180 mg/dL all other times of the day Blood 03/25/2024 11:1 8 AM EDT 03/25/2024 11:18 AM EDT Rudi Hernandez MD POINT OF CARE TEST O ELKIN [facility] [place] [address] * CT Guided Drain Pancreatic/Peripancreatic (03/25/2024 11:03 [...] AM EDT) Anaerobic Culture Many Prevotella buccae(A) [facility] Organism Prevotella buccae(A) [facility] Abdominal Fluid 03/25/2024 1 0:00 AM EDT 03/25/2024 11:30 AM EDT Comment:s/p Whipple w/ po in tolerance, leukocytosis, tachycardia, hypoT - developing abscess (at pancreatic bed - 5x2 cm) Narrative Resulting Agency Comment Spec In Lab Joe Quintero DO MICROBIOLOGY - GENER AL ORDERABLES [facility] [place] [address] * (ABNORMAL) Body Fluid Culture, Aerobic (03/25/2024 10:00 AM EDT) Body Fluid Culture Many mixed Gram Negative and Positive organisms including Streptococcus milleri, anginosis group and Rare Yeast (A) [facility] Gram Stain Many Neutrophils seen Many Gram Positive Cocci seen Few Gram Negative Rods seen Few Gram Positive Rods seen (A) [facility] Organism Streptococcus milleri, anginosis group(A) [facility] Organism Yeast(A) [facility] Organism Gram Positive Cocci(A) [facility] Organism Gram Negative Rods(A) [facility] Organism Gram Positive Rods(A) [facility] Abdominal Fluid 03/25/2024 1 0:00 AM EDT 03/25/2024 11:30 AM EDT Comment:s/p Whipple w/ po in tolerance, leukocytosis, tachycardia, hypoT - developing abscess (at pancreatic bed - 5x2 cm) Narrative Resulting Agency Comment Spec In Lab Joe Quintero DO MICROBIOLOGY - GENER AL ORDERABLES Performing Organization Address City/[facility] Co de Phone Number [facility] [place] [address] * Amylase Level Body Fluid Pancreatic Cyst (03/25/2024 10:00 AM EDT) Amylase, Fluid >7,500 unit/L [facility] [facility] Comment: Reference intervals are unavailable for this test in body fluids. Comparison of this result with the concentration in blood, serum, or plasma is recommended. This test has not been cleared by the [place] FDA. Performance characteristics of this test for the analysis of body fluids were determined by [facility] in accordance with CLIA requirements. This laboratory is qualified under CLIA to perform high-complexity testing. Amylase BF Type Pancreatic cyst [facility] Pancreatic Cyst 03/25/2024 1 0:00 AM EDT 03/25/2024 11:13 AM EDT Narrative Resulting Agency Comment Spec In Lab Joe Quintero DO BODY FLUIDS AND STOO LS ORDERABLES [facility] [place] [address] * POCT Glucose (03/25/2024 9:46 AM EDT) Glucose, POC 146 65 - 199 mg/dL [facility] Comment: Supplemental ranges: <140 mg/dL before meals <180 mg/dL all other times of the day Blood 03/25/2024 9:46 AM EDT 03/25/2024 9:46 AM EDT Rudi Hernandez MD POINT OF CARE TEST O RDERABLES Performing Organization Address [facility] Co de Phone Number [facility] [place] [address] * POCT Glucose (03/25/2024 8:00 AM EDT) Glucose, POC 171 65 - 199 mg/dL [facility] Comment: Supplemental ranges: <140 mg/dL before meals <180 mg/dL all other times of the day Blood 03/25/2024 8:00 AM EDT 03/25/2024 8:00 AM EDT Rudi Hernandez MD POINT OF CARE TEST O RDERABLES Performing Organization Address [facility] Co de Phone Number [facility] [place] [address] * Lactate, whole blood, send to lab ([facility]) (03/25/2024 6:00 AM EDT) Lactate WB 1.2 0.5 - 2.2 mmol/L [facility] Blood 03/25/2024 6:00 AM EDT 03/25/2024 6:11 AM EDT Narrative Resulting Agency Comment Spec In Lab Rudi Hernandez MD CHEMISTRY ORDERABLES Performing Organization Address [facility]/ZIP Co de Phone Number [facility] [place] [address] * (ABNORMAL) Beta Hydroxybutyrate (03/25/2024 4:35 AM EDT) [facility] Beta-hydroxybuturat e 6.30(H) 0.00 - 0.30 mmol/L [facility] Comment: This test has not been cleared by the [place] FDA. Performance characteristics of this test were determined by [facility] in accordance with CLIA requirements. This laboratory is qualified under CLIA to perform high-complexity testing. Blood Venous Draw / Unknown 03/25/2024 4:35 AM EDT 03/25/2024 4:42 AM EDT Narrative Resulting Agency Comment Spec In Lab Rafi Grimadlo MD CHEMISTRY ORDERABLE S [facility] [place] [address] * (ABNORMAL) Differential, Automated (03/25/2024 4:35 AM EDT) [facility] Neutrophil % 79.4 % [facility] Neutrophil Absolute 7.16(H) 1.70 - 6.10 x10(3)/mc L [facility] Lymph % 10.8 % [facility] Lymphocytes Abs 1.0 0.9 - 3.2 x10(3)/mc L [facility] Monocyte % 8.2 % [facility] Monocyte Abs 0.7 0.3 - 0.9 x10(3)/mc L [facility] Eos % 0.4 % [facility] Eosinophils Abs 0.0 0.0 - 0.4 x10(3)/mc L [facility] Basophil % 0.6 % [facility] Baso Absolute 0.0 0.0 - 0.1 x10(3)/mc L [facility] Immature Gran % 0.60 % [facility] Comment: Immature granulocytes(IG's)percentage and absolute count will include metamyelocytes, myelocytes, and promyelocytes. Blood smears from CBCs yielding IG's will be scanned manually for concordance. If this scan disagrees with the automated IG or if promyelocytes are noted, a manual differential will be performed. Immature Gran Absolute 0.05(H) 0.00 - 0.04 x10(3)/mc L [facility] Blood 03/25/2024 4:35 AM EDT 03/25/2024 4:41 AM EDT Narrative Resulting Agency Comment Spec In Lab Janette Austin MD HEMATOLOGY ORDERABLE S [facility] [place] [address] * (ABNORMAL) Hemogram (03/25/2024 4:35 AM EDT) White Blood Cell 9.0 4.0 - 9.5 x10(3)/ L [facility] Red Blood Cell 5.31 4.58 - 5.54 x10(6)/mc L [facility] Hemoglobin 12.7(L) 13.7 - 16.5 g/dL [facility] Hematocrit 39.1(L) 40.5 - 48.5 % [facility] Mean Cell Volume 73.6(L) 82.9 - 93.1 fL [facility] Mean Cell Hemoglobin 23.9(L) 27.5 - 32.1 pg [facility] Mean Cell Hemoglobin Concentration 32.5 32.0 - 35.7 g/dL [facility] Platelet 284 145 - 357 x10(3)/mc L [facility] RDW Standard Deviation 42.4 36.0 - 45.0 fL [facility] RDW coefficient of variation 16.1(H) 11.4 - 13.8 % [facility] Mean Platelet Volume 9.7 7.6 - 12.9 fL [facility] NRBC% auto 0.0 % [facility] NRBC Absolute 0.000 0.000 - 0.000 x10(3)/mc L [facility] Blood 03/25/2024 4:35 AM EDT 03/25/2024 4:41 AM EDT Narrative Resulting Agency Comment Spec In Lab Janette Austin MD HEMATOLOGY ORDERABLE S [facility] [place] [address] * (ABNORMAL) Basic Metabolic Panel (non-fasting) (03/25/2024 4:35 AM EDT) Glucose 148 65 - 199 mg/dL [facility] Comment:Diabetes: >=200 mg/d L plus symptoms Blood Urea Nitrogen 9(L) 10 - 20 mg/dL [facility] Creatinine 0.62(L) 0.80 - 1.50 mg/dL [facility] Sodium 141 135 - 145 mmol/L [facility] Potassium 3.3(L) 3.5 - 5.0 mmol/L [facility] Comment: Please note: ??Patients with WBC >100,000 may have falsely elevated Potassium levels. ??For accurate Potassium quantification in these patients send serum separator tube (gold top) for subsequent determinations. ??Contact the Clinical Chemistry Laboratory if there are any questions. Chloride 112(H) 98 - 107 mmol/L [facility] Carbon Dioxide 8(Critica l) 22 - 31 mmol/L [facility] Comment:Called by: LOKI, Read back by: JYOTI NELSON, Date/Time:03/25/24 05:37. Anion Gap 21(H) 5 - 15 mmol/L [facility] Calcium 7.4(L) 8.5 - 10.5 mg/dL [facility] Comment:result rechecked-KS Est Glomerular Filtration Rate 117 >=60 mL/min/1. 73 m?? [facility] Comment: This patient's estimated GFR [...] Hernandez MD CHEMISTRY ORDERABLES Performing Organization Address [facility] Co de Phone Number [facility] [place] [address] * POCT Glucose (03/25/2024 4:31 AM EDT) Glucose, POC 143 65 - 199 mg/dL [facility] Comment: Supplemental ranges: <140 mg/dL before meals <180 mg/dL all other times of the day Blood 03/25/2024 4:31 AM EDT 03/25/2024 4:31 AM EDT Rudi Hernandez MD POINT OF CARE TEST O RDERABLES Performing Organization Address [facility] Co de Phone Number [facility] [place] [address] * POCT Glucose (03/24/2024 11:56 PM EDT) Glucose, POC 136 65 - 199 mg/dL [facility] Comment: Supplemental ranges: <140 mg/dL before meals <180 mg/dL all other times of the day Blood 03/24/2024 11:5 6 PM EDT 03/24/2024 11:56 PM EDT Rudi Hernandez MD POINT OF CARE TEST O RDERABLES Performing Organization Address City/[facility]/ZIP Co de [place] [address] * (ABNORMAL) Differential, Automated (03/24/2024 10:21 PM EDT) Pathologist [facility] Neutrophil % 78.0 % [facility] Neutrophil Absolute 7.27(H) 1.70 - 6.10 x10(3)/mc L [facility] Lymph % 11.4 % [facility] Lymphocytes Abs 1.1 0.9 - 3.2 x10(3)/ L [facility] Monocyte % 8.9 % [facility] Monocyte Abs 0.8 0.3 - 0.9 x10(3)/ L [facility] Eos % 0.6 % [facility] Eosinophils Abs 0.1 0.0 - 0.4 x10(3)/[facility] Basophil % 0.5 % [facility] Baso Absolute 0.0 0.0 - 0.1 x10(3)/ L [facility] Immature Gran % 0.60 % [facility] Comment: Immature granulocytes(IG's)percentage and absolute count will include metamyelocytes, myelocytes, and promyelocytes. Blood smears from CBCs yielding IG's will be scanned manually for concordance. If this scan disagrees with the automated IG or if promyelocytes are noted, a manual differential will be performed. Immature Gran Absolute 0.06(H) 0.00 - 0.04 x10(3)/ L [facility] Blood 03/24/2024 10:2 1 PM EDT 03/24/2024 10:43 PM EDT Narrative Resulting Agency Comment Spec In Lab Janette Austin MD HEMATOLOGY ORDERABLE S [facility] [place] [address] * (ABNORMAL) Hemogram (03/24/2024 10:21 PM EDT) White Blood Cell 9.3 4.0 - 9.5 x10(3)/ L [facility] Red Blood Cell 5.86(H) 4.58 - 5.54 x10(6)/mc L [facility] Hemoglobin 14.0 13.7 - 16.5 g/dL [facility] Hematocrit 44.0 40.5 - 48.5 % [facility] Mean Cell Volume 75.1(L) 82.9 - 93.1 fL [facility] Mean Cell Hemoglobin 23.9(L) 27.5 - 32.1 pg [facility] Mean Cell Hemoglobin Concentration 31.8(L) 32.0 - 35.7 g/dL [facility] Platelet 309 145 - 357 x10(3)/[facility] RDW Standard Deviation 43.0 36.0 - 45.0 [facility] RDW coefficient of variation 16.2(H) 11.4 - 13.8 % [facility] Mean Platelet Volume 9.8 7.6 - 12.9 [facility] NRBC% auto 0.0 % [facility] NRBC Absolute 0.000 0.000 - 0.000 x10(3)/[facility] Blood 03/24/2024 10:2 1 PM EDT 03/24/2024 10:43 PM EDT Narrative Resulting Agency Comment Spec In Lab Janette Austin MD HEMATOLOGY ORDERABLE S [facility] [place] [address] * (ABNORMAL) Basic Metabolic Panel (non-fasting) (03/24/2024 10:21 PM EDT) Glucose 143 65 - 199 mg/dL [facility] Comment:Diabetes: >=200 mg/d L plus symptoms Blood Urea Nitrogen 11 10 - 20 mg/dL [facility] Creatinine 0.79(L) 0.80 - 1.50 mg/dL [facility] Sodium 137 135 - 145 mmol/L [facility] Potassium 3.8 3.5 - 5.0 mmol/L [facility] Comment: Please note: ??Patients with WBC >100,000 may have falsely elevated Potassium levels. ??For accurate Potassium quantification in these patients send serum separator tube (gold top) for subsequent determinations. ??Contact the Clinical Chemistry Laboratory if there are any questions. Chloride 105 98 - 107 mmol/L [facility] Carbon Dioxide 11(L) 22 - 31 mmol/L [facility] Anion Gap 21(H) 5 - 15 mmol/L [facility] Calcium 8.4(L) 8.5 - 10.5 mg/dL [facility] Est Glomerular Filtration Rate 109 >=60 mL/min/1. 73 m?? [facility] Comment: This patient's estimated GFR [...] In Lab Rudi Hernandez MD CHEMISTRY ORDERABLES [facility] [place] [address] * (ABNORMAL) Phosphorus (03/24/2024 10:21 PM EDT) Phosphorus 2.4(L) 2.5 - 4.5 mg/dL [facility] Blood 03/24/2024 10:2 1 PM EDT 03/24/2024 10:43 PM EDT Narrative Resulting Agency Comment Spec In Lab Rudi Hernandez MD CHEMISTRY ORDERABLES Performing Organization Address [facility] de Phone Number [facility] [place] [address] * Magnesium (03/24/2024 10:21 PM EDT) Magnesium 0.83 0.69 - 1.07 mmol/L [facility] Blood 03/24/2024 10:2 1 PM EDT 03/24/2024 10:43 PM EDT Narrative Resulting Agency Comment Spec In Lab Rudi Hernandez MD CHEMISTRY ORDERABLES Performing Organization Address [facility] Phone Number [facility] [place] [address] * POCT Glucose (03/24/2024 9:17 PM EDT) Glucose, POC 140 65 - 199 mg/dL [facility] Comment: Supplemental ranges: <140 mg/dL before meals <180 mg/dL all other times of the day Blood 03/24/2024 9:17 PM EDT 03/24/2024 9:17 PM EDT Rudi Hernandez MD POINT OF CARE TEST O RDERABLES Performing Organization Address [facility] Phone Number [facility] [place] [address] * Request For 2nd Read CT Abdomen & Pelvis (03/24/2024 7:48 PM EDT) WORKSTATION ID [id number] RAD Anatomical Region Laterality Modality Abdomen, Pelvis [...] who have questions please contact the health doggy daycare activities director that requested your imaging first. ? Electronically signed by: Ilana Mirza MD, [facility] ([phone]), at 03/25/2024 9:19 AM Narrative 03/25/2024 9:19 AM EDT EXAMINATION: REQUEST FOR 2ND READ CT ABDOMEN AND PELVIS CLINICAL HISTORY: s/p Whipple w/ po intolerance, leukocytosis, tachycardia, hypoT - c/f acute findings, ?fluid collection or abscess; Sending Institution [facility]; Date of exam 20240324; I believe [...] c/f acute findings, ?fluid collection or abscess; [facility]; Date of exam 20240324; I believe a [...] patients who have questions please contactthe health doggy daycare activities director that requested your imaging first. Electronically signed by: Ilana Mirza MD, [facility]([phone]), at 03/25/2024 9:19 AM Rudi Hernandez MD [...] Continuous (TPN), 2 doses, First dose on 7/13/24 at 1800, Last dose on Fri03/28/24 at [...] SCHEDULED, First dose (after last modification) on 03/28/24 at 1200, Until Discontinued, TPN insulin Please [...] 10 mg, Subcutaneous, ONCE, 1 dose, On Fri03/25/24 at 1030, For use in Interventional Radiology [...] 1724, for discomfort with PIV insertion, Routine klhodn-itorfzue-afibwhc DR (Zenpep 20) 20,000-63,000- 84,000 unit per [...] Soco Mohamud RN)1452 (Given - Provider: Soco Mohamud, GRETCHEN)2135 (Given - Provider: Bernard Ritchie RN) 0819 [...] Anais Santos RN)1500 (Given - Provider: Micha Butler, RN)2213 (Given - Provider: Bernard Ritchie, RN) 0642 (Given - Provider: Bernard Ritchie, GRETCHEN)1452 (Given - Provider: Soco Mohamud, GRETCHEN)2136 (Given - Provider: Bernard Ritchie, GRETCHEN) 0639 (Given - Provider: Bernard Ritchie RN)1308 (Given - Provider: Li Lewis RN) insulin [...] [phone] (Given - Provider: Li Lewis RN) gjovxm-uqubadhi-chagrff DR (Zenpep 20) 20,000-63,000- 84,000 unit per [...] ineffective. documented in this encounter Care Teams Band Manager Relationship Specialty Start Date End Date Olga Hoffman APRN [address] [place] [address] PCP - General Family Medicine 10/30/22 documented as of this encounter
--- OUTSIDE RECORDS SUMMARY | 2024-05-31 21:23 | XMS_ITS | Encounter Summary ---
Author Organization [facility] [place] [address] Care Team Providers Care Manager Target Name Role Phone Olga Hoffman APRN Primary Care Provider [phone] Encounter Details Date Type Department Care Team (Late st Contact Info) Description 03/10/2024 Orders Only [place] [address] Rudi Hernandez MD [facility] [place] [address] Duodenal cancer Social History Tobacco Use Types Packs/Day Years Used Date Smoking Tobacco: Never Smokeless Tobacco: Never Alcohol Use Standard Drinks/Week Comments Not Currently 0 (1 standard drink = 0.6 oz pur e alcohol) [facility] Utilities Answer Date Recorded In the past 12 months has [facility] [employer], gas, oil, or water [employer] threatened to shut off services in your [...] 9:30 AM EDT Office Visit Hematology/Oncology at [address] [phone] Rodriguez Fowler MD [facility] DR ONCOLOGY [facility] [place] [address] Sherry Cedillo APRN [address] [place] [address] [place] [address] 06/11/2024 10:00 AM EDT Infusion Hematology Oncology at [address] [phone] 06/25/2024 9:30 AM EDT Office Visit Hematology/Oncology at [address] [phone] Rodriguez Fowler MD [facility] [place] [address] Sherry Cedillo APRN [address] [place] [address] DR HEMATOLOGY AND ONCOLOGY [place], [place] [id number] 06/25/2024 10:00 AM EDT Infusion Hematology Oncology at [address] [phone] documented as of this encounter 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
--- OUTSIDE RECORDS SUMMARY | 2024-05-31 21:23 | XMS_ITS | Encounter Summary ---
Author Organization [facility] [place] [address] Care Team Providers Care Raw Hide Trimmer Name Role Phone Olga Hoffman APRN Primary Care Provider [phone] Encounter Details Date Type Department Care Team (Late st Contact Info) Description 03/05/2024 Telephone Nephrology [place] [address] Deena Wells Social History Tobacco [...] 9:30 AM EDT Office Visit Hematology/Oncology at [address] [phone] Rodriguez Fowler MD [facility] [place] [address] Sherry Cedillo APRN [address] [place] [address] HEMATOLOGY AND ONCOLOGY [place], [place] [id number] 06/11/2024 10:00 AM EDT Infusion Hematology Oncology at [address] [phone] 06/25/2024 9:30 AM EDT Office Visit Hematology/Oncology at [address] [phone] Rodriguez Fowler MD [facility] [place] [place] [address] Sherry Cedillo APRN [address] [place] [address] DR HEMATOLOGY AND ONCOLOGY [place], [place] [id number] 06/25/2024 10:00 AM EDT Infusion Hematology Oncology at [address] [phone] documented as of this encounter Visit Diagnoses Not on filedocumented in this encounter Care Teams Raw Hide Trimmer Relationship Specialty Start Date End Date Olga Hoffman APRN [address] [place] [address] PCP - General Family Medicine 10/30/22 documented as of this encounter
--- OUTSIDE RECORDS SUMMARY | 2024-05-31 21:23 | XMS_ITS | Encounter Summary ---
Author Organization [facility] [place] [address] Care Team Providers Care Tso Name Role Phone Dalton Olgaevy Bell APRN Primary Care Provider [phone] Reason for Visit * Auth/Cert (Routine) Specialty Diagnoses / Procedures Referred By Contac t Referred To Contact Diagnoses Malignant neoplasm of duodenum DUODENUM ADENCARCINOMA Procedures PRO PART REMV PANC, PROX+REMV DUOD+ANAST @WHIPPLE PROCEDURE (WRVU 52.84) Rudi Hernandez MD [facility] [place] [address] [facility] Referral ID Status Reason Start Date Expiration Date Visits Re quested Visits Authorized [id number] 1 1 Encounter Details Date Type Department Care Team (Latest Contact Info) Description 03/01/2024 6:11 AM EDT - 03/08/2024 3:01 PM EDT Hospital Encounter Surgical Unit Level 4 [place] [address] Rudi Hernandez MD [facility] [place] [address] Duodenal cancer; Duodenal adenocarcinoma Discharge Disposition: Home Social History Tobacco Use Types Packs/Day Years Used Date Smoking Tobacco: Never Smokeless Tobacco: Never Alcohol Use Standard Drinks/Week Comments Not Currently 0 (1 standard drink = 0.6 oz pur e alcohol) [facility] Utilities Answer Date Recorded In [...] a nursing home (including now)? No 03/02/2024 DH IPV [...] duodenal adenocarcinoma who ultimately presented to [facility] on 03/01/24 for Whipple procedure. Operations/Major Procedures: [...] Hospital Course: Charles Nick was admitted to [facility] on [facility]01[facility]2024 [facility]. He [...] and PJ anastomosis. 200 mL EBL. Epidural, bialey, NGT in place. 03/02 POD1: BASIA amylase hemolyzed x 3 attempts. Fluid boluses for oliguria, Cr WNL. DM AIRLINE RESERVATIONIST recommendedstarting Lantus 8u daily. Seen by wound [...] gauge x 1/4 Needle 1 each by [facility].(Non-Drug; Combo Route) route 2 times daily. Generic drug: Insulin Garwin (Disposable) 1 each Quantity: 300 each Refills: [...] 03/17/2024 9:30 AM Silvio Gilbert MD [facility] PLAS 4M [facility] 03/17/2024 10:[address] [facility] SURG [facility] 03/24/2024 2:00 PM Rudi Hernandez MD [facility] SURG [facility] Outpatient Services/Studies: CBC (with Diff) Standing Status: [...] the nurses in the Surgery Clinic at [phone]. - During the night time hours call the hospital refinery operator assistant [phone] and ask to speak to the general surgery resident head of conservation. Instructions for when you are home: Diet: Ok to eat a regular diet as tolerated. It is important to try to eat as much calories and protein as possible during recovery to aid in healing. You frequently may feel full easily or even havenausea. Take small meals at first and pace yourself. You may supplement your diet with nutritional shakes/drinks (Ensure, [place] Instant Breakfast, Boost) if possible. Enzymes: You [...] until you are seen by Dr. Delacruz [facility] surgery clinic for your first postop [...] has been scheduled with Dr. Delacruz's office [phone]. In most cases Dr. Delacruz will order blood work to be done on the day of your post op clinic appointment. This decision is made on a [id number] basis so ask if this is necessary and plan to come to [facility] pr ior to the appointment to get the blood work done in 3L as instructed. - Of course, if you are being discharged on a weekend and Dr. Delacruz's office is closed then call the office [phone] first thing Friday. Future Appointments Date Time Provider Department Center 03/17/2024 9:30 AM Silvio Gilbert MD [facility] PLAS 4M [facility] 03/17/2024 10:[address] [facility] SURG [facility] 03/24/2024 2:00 PM Rudi Hernandez MD [facility] SURG [facility] You have been scheduled for a follow-up with our outpatient biological plant operator Donna Dewey RD to review your nutrition postoperatively - this has been coordinated to occur the same day you are here seeing plastic surgery. I reached out to your front office director Dr. Maxwell's office to request follow-up with [...] speak with the surgery nurses.The number is [phone]. - During the night call the [facility] refinery operator assistant and ask to speak to the surgery resident head of conservation for general surgery. General Instructions Diabetes Discharge [...] Silvio Gilbert MD Plastic Surgery at [facility] Arrive at: Member Service Representative Area 4M [phone] 03/17/2024 10:[address] General Surgery at [facility] Arrive at: Member Service Representative Area 4L [phone] 03/24/2024 2:00 PM Rudi Hernandez MD General Surgery at [facility] Arrive at: Member Service Representative Area 4L [phone] Please dispose of unused excess opioids before your appointment or bring them with you to the appointment and we will help you dispose of them correctly. Future Orders Complete By Expires CBC (with Diff) [[id number] Custom] 03/24/2024 03/08/2025 Process Instructions: INCLUDES: WBC, RBC, Hgb, Hct, Platelets, RBC Indices and Differential Scheduling Instructions: Comments: Questions: Comprehensive metabolic panel (non-fasting) [LAB17 Custom] 03/24/2024 (Approximate) 03/08/2025 Process Instructions: INCLUDES: Calcium, T Protein, Albumin, AST, ALT, Alk Phos, T Bili, BUN, Creat, GFR, Glucose, Lytes. Scheduling Instructions: Comments: Questions: Magnesium [[id number] Custom] 03/24/2024 03/08/2025 Process Instructions: Scheduling Instructions: Comments: Questions: Phosphorus [[id number] Custom] 03/24/2024 09/23/2024 Process Instructions: Scheduling Instructions: Comments: Questions: Discharge References/Attachments: Discharge References/Attachments None Follow-up Recommendations for Providers: Medication changes: Insulin Lantus 10 u nightly added due to whipple procedure Diet changes: No change has been made to diet CC: Olga Hoffman APRN [phone] Signed: Tiffanie Pabon MD Surgical Oncology Service Team Pager #[phone] 03/08/2024 1:48 PM For questions regarding this document or issues relating to this hospitalization on the Surgical Oncology Service, please contact Rudi Hernandez MD's office at [phone] documented in this encounter Discharge Instructions * [...] juice or regular (not diet) soda 6 AorTxs small box of raisins 4 glucose tablets [...] the nurses in the Surgery Clinic at [phone]. - During the night time hours call the hospital refinery operator assistant [phone] and ask to speak to the general surgery resident head of conservation. Instructions for when you are home: Diet: Ok to eat a regular diet as tolerated. It is important to try to eat as much calories and protein as possible during recovery to aid in healing. You frequently may feel full easily or even havenausea. Take small meals at first and pace yourself. You may supplement your diet with nutritional shakes/drinks (Ensure, [place] Instant Breakfast, Boost) if possible. Enzymes: You [...] until you are seen by Dr. Delacruz [facility] surgery clinic for your first postop [...] Incision: The skin incision(s) is closed with: [place] Usually the edd are removed anywhere from [...] has been scheduled with Dr. Delacruz's office [phone]. In most cases Dr. Delacruz will order blood work to be done on the day of your post op clinic appointment. This decision is made on a [id number]-qn-[id number] basis so ask if this is necessary and plan to come to [facility] pr ior to the appointment to get the blood work done in 3L as instructed. - Of course, if you are being discharged on a weekend and Dr. Delacruz's office is closed then call the office [phone] first thing Friday. Future Appointments Date Time Provider Department Center 03/17/2024 9:30 AM Silvio Gilbert MD [facility] PLAS 4M [facility] 03/17/2024 10:[address] [facility] SURG [facility] 03/24/2024 2:00 PM Rudi Hernandez MD [facility] SURG [facility] You have been scheduled for a follow-up with our outpatient biological plant operator Donna Dewey RD to review your nutrition postoperatively - this has been coordinated to occur the same day you are here seeing plastic surgery. I reached out to your front office director Dr. Maxwell's office to request follow-up with [...] speak with the surgery nurses.The number is [phone]. - During the night call the [facility] refinery operator assistant and ask to speak to the surgery resident head of conservation for general surgery. documented in this encounter Medications at Time of Discharge Medication Sig Dispensed Refills Start Date End Date potassium chloride ER (Klor-Con, K-Tab) 10 mEq ER tablet Take 1 tablet by mouth 2 times daily. 30 tablet 03/08/2024 Insulin Garwin, Disposable, (BD Ultra-Fine Micro Pen Needle) 32 gauge x 1/4 Needle 1 each by [facility].(Non-Drug; Combo Route) route 2 times [...] Wright MD [facility] INTERVENTIONL RAD PRO PART REMV PANC, PROX+REMV DUOD+ANAST N/A 03/01/2024 @WHIPPLE PROCEDURE (WRVU 52.84) performed by Rudi Hernandez MD at [facility] MAIN OR PRO TRANSFER SKIN PEDICLE FLAP N/A 03/01/2024 TRANSFER, INTERMEDIATE, ANY PEDICLE FLAP, ANY LOCATION (WRVU 4.77) performed by Rudi Hernandez MD at [facility] MAIN OR Social History:Home set-up: Lives with [...] for this consult. MIKI HARRELL, PT Pager: [phone] Physical Therapy Inpatient Rehabilitation Department * Diane [...] Fluid boluses for oliguria, Cr WNL. DM AIRLINE RESERVATIONIST recommendedstarting Lantus 8u daily. Seen by wound [...] Pabon MD Surgical Oncology Service Team Pager #[phone] 03/07/24 8:33 AM * Diane Sexton MD [...] Fluid boluses for oliguria, Cr WNL. DM AIRLINE RESERVATIONIST recommendedstarting Lantus 8u daily. Seen by wound [...] Pabon MD Surgical Oncology Service Team Pager #[phone] 03/06/24 8:35 AM I saw, examined, and [...] insulin doses adjusted. Isidra Hickey APRN, [place], [facility] Inpatient Diabetes Management Team Team pager #[phone] * Gary Mtz PA - 03/05/2024 9:58 [...] Fluid boluses for oliguria, Cr WNL. DM AIRLINE RESERVATIONIST recommendedstarting Lantus 8u daily. Seen by wound [...] Vj Joya Surgical Oncology Service Team Pager #[phone] 03/05/24 9:58 AM I saw, examined, and [...] CC Monitoring: Q4 Kristen Meza APRN [facility] Endocrinology Diabetes Management Pager [phone] Weekends please page [phone] * Miki Harrell, PT - 03/04/2024 1:20 [...] Fluid boluses for oliguria, Cr WNL. DM AIRLINE RESERVATIONIST recommendedstarting Lantus 8u daily. Seen by wound [...] fatty liver disease, type 2 diabetes [facility], and a newly diagnosed duodenal adenocarcinoma [...] JULIO Burgess Surgical Oncology Service Team Pager #[phone] 03/04/24 12:09 PM Associated attestation - Rudi [...] as a scribe for Dr. Mac Holguin. Final Inspection Supervisor Patient seen and examined on daily rounds. I agree with the above assessment and plan. Mac Holguin MD 9702 APLA Nurse: Collin Vallecillo RN Resident:: Juan Michelle MD Attending Physician:: Mac Holguin MD * Kristen Meza, APPLICATION ADMINISTRATOR - 03/04/2024 7:15 AM EDT Follow Up [...] CGM for discharge Kristen Meza APRN [facility] Endocrinology Diabetes Management Pager [phone] Weekends please page [phone] 35 minutes were spent over the course [...] liquid Monitoring: Q4 Kristen Meza APRN [facility] Endocrinology Diabetes Management Pager [phone] Weekends please page [phone] minutes were spent over the course [...] Pabon MD Surgical Oncology Service Team Pager #[phone] 03/03/24 2:06 PM * Ezio, Mac De [...] - 12.5 sec Final Operative Procedures: Procedure(s): @WIERGATE PROCEDURE (WRVU 52.84) TRANSFER, INTERMEDIATE, ANY PEDICLE [...] as a scribe for Dr. Mac Holguin. Final Inspection Supervisor Patient seen on daily rounds. I agree with the above assessment and plan. Fantastic analgesia with epidural. Mac Holguin MD 7999 APMS Nurse: Collin Vallecillo RN Resident:: Juan [...] MD [facility] INTERVENTIONL RAD Social History:Home set-up: Lives with [...] for evaluation today. Pain: well controlled with FLANGING ROLL OPERATOR/epidural Vital Signs / Cardiopulmonary: SpO2: 95% on [...] for this consult. MIKI HARRELL, PT Pager: [phone] Physical Therapy Inpatient Rehabilitation Department 2017 PT [...] FLANAGAN; Age: 4 1975; 48 y.o. Room/Bed: [address] [place] [address] Today's Date: 03/02/24 ID: Charles Nick is [...] to LCWS for today. OOB/ambulate/PT/OT. Appreciate DM AIRLINE RESERVATIONIST recommendations for his post-Whipple hyperglycemia in the [...] JULIO Burgess Surgical Oncology Service Team Pager #[phone] 03/02/24 3:24 PM * Violeta Manley RN - 03/02/2024 3:15 PM EDT Pt arrived to [facility] around 1445. Connected to carmen VSS on RA. NG to LCWS. LR 1L bolus initiated. Epidural remains in place. Abd dressing w/ spotting, not outside marked areas. BASIA to bulb suction. See flowsheets for full assessment. * Miki Harrell, PT - 03/02/2024 2:49 PM EDT 03/02/24 1443 Evaluation & Treatment Document Type contact Total [...] assessment and plan Mac Holguin MD [facility] Nurse: Robert Pena RN Resident:: [...] Kim MD 03/01/2024 Surgical Oncology, Team Pager [phone] * Roxie Rascon RN - 03/01/2024 9:10 [...] fatty liver disease, type 2 diabetes on [facility], with a newly diagnosed duodenal adenocarcinoma. [...] and Plan: 48 y.o. male presents for fulda. Latonia Red MD 03/01/24 documented in this [...] none Patient is insured through: Primary Insurance: [employer] Payor: [employer] / Plan: [facility] PPO / Product Type: *No Product type* / Secondary Insurance: N/A Prescription Coverage: Yes This plan was formulated with input from patient, and team. All are in agreement with plan. JACKIE Mcguire, logging contractor of Care Management Pager [phone] * Plan of Care - Nahomi Toussaint [...] result of 206mL. ordered a straight cath, medical underwriter straight cathed 300mL of urine at [...] No Patient is insured through: Primary Insurance: [employer] Payor: [facility] / Plan: [facility] [...] Anticipated Date of Discharge: 03/07/2024 JACKIE Mcguire, logging contractor of Care Management Pager [phone] * Plan of Care - Katelynn Unger [...] BM this shift, faint BS. Midline incision MASTER OCEAN YACHT,edd intact. Adb BASIA to bulb suction w/ [...] [current deficits]: unfamiliar environment, lines/tubes/drains, generalized weakness, narcotics/FLANGING ROLL OPERATOR/epidural, recent surgery, bilat LE baseline numbness Assistance [...] [current deficits]: unfamiliar environment, lines/tubes/drains, generalized weakness, narcotics/FLANGING ROLL OPERATOR/epidural, recent surgery, bilat LE baseline numbness Assistance [...] management and to provide a review of termite exterminator diabetes care. Diabetes History: Charles Nick has had diabetes since . Part of this hx was gleaned from Dr Dawson evaluation in 2020 upon referral from [facility]. He was seen briefly in the PACU. [...] found for: HA1C ordered and pending FROM [facility] ([employer]-[facility] in 2020) has Ha1C screen shots which [...] education: we believe he has had at [facility]-was referred to dr dawson [place] . Lab Results Component Value Date MICROALBUR [...] insulin and what his Ha1C results to custodial diabetes care: Medications - Outpatient treatment regimen [...] Team, bedside nurse, medical record, and Patient (Financial Sales Assistant spoke with the patient in the recovery.) [...] surrogate would be surrogate decision maker per [place] surrogate decision making law. (Only good for 180 days) Any patient receiving care in [place] must abide by [place] law. The hierarchy for surrogate decision making [...] (i) The agent with financial power of family law attorney or a conservator appointed in accordance [...] or living in a nursing home (including now)?: No In the past 12 months has the [place] [employer], gas, oil, or water [employer] threatened to shut off services in your [...] Current DME: none Home Address confirmed as: [address] [place] [phone] Social & Family Supports: All names listed below confirmed with patient as current and correct Extended Emergency Contact Information Primary Emergency Contact: JENELLE SOUZA Address: [address] [place] [id number] [place] Relation: Life Partner [...] Specific Information: none Health/Prescription Coverage: Primary Insurance: [facility] Payor: [facility] / Plan: [facility] PPO / Product Type: *No Product type* / Secondary Insurance: N/A ; Prescription Coverage: Yes Preferred Pharmacy: [facility] [address] [facility] [address] [address] [address] - [place], [place] - [address] [place] [address] [place] Status: Patient is a : No Primary Care Provider confirmed: Olga Hoffman, YOCASTA [phone] Patient/Caregiver Goals of Treatment: Return home with [...] coordination of care as indicated. JACKIE Mcguire, logging contractor of Care Management Pager [phone] * Consult Note - Francine Martinez RN [...] Cover with a Mepilex border. (Medihoney PS# [id number]) Right hallux underside: leave the blister open to air Wound Care Team will follow next week. Discussed plan with: PA: Gary Mtz, secure chat Please contact Francine Martinez RN on secure chat or the wound care team at [phone] or pager [phone] with skin and wound care concerns or questions. Electronically Signed By: Francine Martinez RN * Brief Op Note - Latonia Red MD - 03/01/2024 6:38 PM EDT Brief Operative Note Patient Name: Charles Nick : [id number] MR#: [id number] Case Date: 03/01/2024 Surgeon: Surgeons and Role: [...] Biospecimen to store? No SPECIMEN TO PATHOLOGY [place]: Yellow- pancreatic neck margin, Blue paint- vascular groove, [place]- SMA, Green- bile duct margin DUODENUM ADENCARCINOMA [...] MD - 03/01/2024 8:28 AM EDT [facility] Operative Note Patient Name: Charles Nick : [id number] MR#: [id number] Case Date: 03/01/2024 Surgeon: Surgeons and Role: [...] Biospecimen to store? No SPECIMEN TO PATHOLOGY [place]: Yellow- pancreatic neck margin, Blue paint- vascular groove, [place]- SMA, Green- bile duct margin DUODENUM ADENCARCINOMA [...] was not able to place the 8 [place] feeding tube into the duct, thus I used a 5 Polish feeding tube which passed easily. I placed [...] used to createthe PJ anastomosis, the 5 Polish feeding tube was cut to 8 cm [...] were placed with 3-0 silk. A 19 Polish drain was brought into the right abdomen [...] 9:30 AM EDT Office Visit Hematology/Oncology at [address] [phone] Rodriguez Fowler MD [facility] [place] [address] Sherry Cedillo APRN [address] [place] [address] DR HEMATOLOGY AND ON[place]OGY [place], [place] [address] 06/11/2024 10:00 AM EDT Infusion Hematology Oncology at [address] [phone] 06/25/2024 9:30 AM EDT Office Visit Hematology/Oncology at [address] [phone] Rodriguez Fowler MD [facility] [place] [address] HEMATOLOGY AND ONCOLOGY [place], [place] [phone] 06/25/2024 10:00 AM EDT Infusion Hematology Oncology at [address] [phone] documented as of this encounter Procedures Procedure [...] 9:31 AM EDT TYPE AND SCREEN ([facility]/CGP/FABIOLA) STAT 03/01/2024 9:31 AM EDT POCT GLUCOSE Routine 03/01/2024 9:14 AM EDT BLOOD GAS ARTERIAL POC Routine 8:39 AM EDT XR FLUORO NO RAD <1HR - OR USE Routine 03/01/2024 7:45 AM EDT Transfer Skin Pedicle Flap ([id number]) 03/01/2024 7:42 AM EDT DUODENUM ADENCARCINOMA Part Remv Panc, Prox+Remv Duod+Anast ([id number]) 03/01/2024 7:42 AM EDT 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/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 03/01/2024 7:03 AM EDT documented in this encounter Results * Phosphorus (04/20/2024 12:39 PM EDT) Pathologist [facility] Phosphorus 3.1 2.5 - 4.5 mg/dL 04/20/2024 1:28 PM EDT [facility] Blood VENOUS BLOOD SPECIMEN / Unknown Venipuncture / Unknown 04/20/2024 12:39 PM EDT 04/20/2024 12:39 PM EDT Rudi Hernandez MD CHEMISTRY ORDERABLES Performing Organization Address City/[facility]/ZIP Co de Phone Number [facility] [place] [address] * Magnesium (04/20/2024 12:39 PM EDT) [facility] Magnesium 0.74 0.69 - 1.07 mMol/L 04/20/2024 1:28 PM EDT [facility] Blood VENOUS BLOOD SPECIMEN / Unknown Venipuncture / Unknown 04/20/2024 12:39 PM EDT 04/20/2024 12:39 PM EDT Rudi Hernandez MD CHEMISTRY ORDERABLES [facility] [place] [address] * (ABNORMAL) Comprehensive metabolic panel (04/20/2024 12:39 PM EDT) Pathologist [facility] Glucose 204(H) 65 - 199 mg/dL 04/20/2024 1:28 PM EDT [facility] Comment:Glucose Concentratio n >=200 mg/dL plus symptoms is consistent with Diabetes Mellitus. Blood Urea Nitrogen 5(L) 10 - 20 mg/dL 04/20/2024 1:28 PM EDT [facility] Creatinine 0.82 0.80 - 1.50 mg/dL 04/20/2024 1:28 PM [facility] Sodium 141 135 - 145 mMol/L 04/20/2024 1:28 PM [facility] Potassium 4.1 3.5 - 5.0 mMol/L 04/20/2024 1:28 PM [facility] Chloride 104 98 - 107 mMol/L 04/20/2024 1:28 PM [facility] Carbon Dioxide 27 22 - 31 mMol/L 04/20/2024 1:28 PM [facility] Anion Gap 10 5 - 15 mMol/L 04/20/2024 1:28 PM [facility] Calcium 9.2 8.5 - 10.5 mg/dL 04/20/2024 1:28 PM [facility] Protein, Total 6.5 6.1 - 8.0 g/dL 04/20/2024 1:28 PM [facility] Albumin 3.5 3.2 - 5.2 g/dL 04/20/2024 1:28 PM [facility] Aspartate Aminotransferase 15 <=39 unit/L 04/20/2024 1:28 PM [facility] Alanine Aminotransferase 14 0 - 55 unit/L 04/20/2024 1:28 PM [facility] Alkaline Phosphatase 71 40 - 130 unit/L 04/20/2024 1:28 PM [facility] Bilirubin, Total 0.3 <=1.3 mg/dL 04/20/2024 1:28 PM [facility] Est Glomerular Filtration Rate - Male 108 mL/min/1. 73 m?? 04/20/2024 1:28 PM [facility] Comment: This patient's estimated [...] Fasting Status No 04/20/2024 1:28 PM EDT [facility] Blood VENOUS BLOOD SPECIMEN / Unknown Venipuncture / Unknown 04/20/2024 12:39 PM EDT 04/20/2024 12:39 PM EDT Rudi Hernandez MD CHEMISTRY ORDERABLES [facility] [place] [address] * (ABNORMAL) CBC (with Diff) (04/20/2024 12:39 PM EDT) White Blood Cell 7.18 x10(3)/mc L 04/20/2024 12:49 PM EDT [facility] Red Blood Cell 5.26 4.58 - 5.54 x10(6)/mc L 04/20/2024 12:49 PM T [facility] Hemoglobin 12.6(L) 13.7 - 16.5 g/dL 04/20/2024 12:49 PM [facility] Hematocrit 40.5 40.5 - 48.5 % 04/20/2024 12:49 PM [facility] Mean Cell Volume 77.0(L) 82.9 - 93.1 fL 04/20/2024 12:49 PM T [facility] Mean Cell Hemoglobin 24.0(L) 27.5 - 32.1 pg 04/20/2024 12:49 PM [facility] Mean Cell Hemoglobin Concentration 31.1(L) 32.0 - 35.7 g/dL 04/20/2024 12:49 PM [facility] Platelet 178 145 - 357 x10(3)/mc L 04/20/2024 12:49 PM [facility] Mean Platelet Volume 10.5 7.6 - 12.9 fL 04/20/2024 12:49 PM [facility] RDW Standard Deviation 48.7(H) 36.0 - 45.0 fL 04/20/2024 12:49 PM [facility] RDW coefficient of variation 17.7(H) 11.4 - 13.8 % 04/20/2024 12:49 PM [facility] NRBC% auto 0.0 % 04/20/2024 12:49 PM [facility] NRBC Absolute 0.00 0.00 - 0.00 x10(3)/mc L 04/20/2024 12:49 PM [facility] Neutrophil % 66.4 % 04/20/2024 12:49 PM [facility] Neutrophil Absolute (ANC) - Automated 4.77 1.70 - 6.10 x10(3)/mc L 04/20/2024 12:49 PM [facility] Lymph % 20.8 % 04/20/2024 12:49 PM [facility] Lymph Absolute 1.49 0.90 - 3.20 x10(3)/mc L 04/20/2024 12:49 PM [facility] Monocyte % 6.1 % 04/20/2024 12:49 PM [facility] Monocyte Absolute 0.44 0.30 - 0.90 x10(3)/mc L 04/20/[facility]24 12:[facility] Eos % 5.3 % 04/20/2024 12:49 PM [facility] Eos Absolute 0.38 0.00 - 0.40 x10(3)/mc L 04/20/2024 12:49 [facility] Basophil % 0.6 % 04/20/2024 12:49 PM [facility] Baso Absolute 0.04 0.00 - 0.10 x10(3)/mc L 04/20/2024 12:49 [facility] Immature Gran % 0.8 % 12:49 PM EDT [facility] Immature Gran Absolute 0.06(H) 0.00 - 0.04 x10(3)/mc L 04/20/2024 12:49 PM EDT [facility] Blood VENOUS BLOOD SPECIMEN / Unknown Venipuncture / Unknown 04/20/2024 12:39 PM EDT 04/20/2024 12:39 PM EDT Rudi Hernandez MD HEMATOLOGY ORDERABLE S [facility] [place] [address] * POCT Glucose (03/08/2024 11:26 AM EDT) Glucose, POC 158 65 - 199 mg/dL [facility] Comment: Supplemental ranges: <140 mg/dL before meals <180 mg/dL all other times of the day Blood 03/08/2024 11:2 6 AM EDT 03/08/2024 11:26 AM EDT Rudi Hernandez MD POINT OF CARE TEST O RDERABLES Performing Organization Address [facility]/ZIP Co de Phone Number [facility] [place] [address] * POCT Glucose (03/08/2024 8:13 AM EDT) Glucose, POC 170 65 - 199 mg/dL [facility] Comment: Supplemental ranges: <140 mg/dL before meals <180 mg/dL all other times of the day Blood 03/08/2024 8:13 AM EDT 03/08/2024 8:13 AM EDT Rudi Hernandez MD POINT OF CARE TEST O RDERABLES [facility] [place] [address] * Scan, Peripheral Blood (03/08/2024 4:44 AM EDT) Plat estimate Normal [facility] RBC Morphology Abnormal [facility] Hypochromia Slight [facility] Polychromasia Present >5/HPF [facility] Marcy Cells 6-10 /HPF [facility] Blood 03/08/2024 4:44 AM EDT 03/08/2024 5:05 AM EDT Narrative Resulting Agency Comment Spec In Lab Latonia eRd MD HEMATOLOGY ORDERABLE S [facility] [place] [address] * (ABNORMAL) Differential, Automated (03/08/2024 4:44 AM EDT) Neutrophil % 84.9 % [facility] Neutrophil Absolute 8.47(H) 1.70 - 6.10 x10(3)/mc L [facility] Lymph % 8.6 % [facility] Lymphocytes Abs 0.9 0.9 - 3.2 x10(3)/mc L [facility] Monocyte % 4.7 % [facility] Monocyte Abs 0.5 0.3 - 0.9 x10(3)/mc L [facility] Eos % 1.0 % [facility] Eosinophils Abs 0.1 0.0 - 0.4 x10(3)/mc L [facility] Basophil % 0.3 % [facility] Baso Absolute 0.0 0.0 - 0.1 x10(3)/mc L [facility] Immature Gran % 0.50 % [facility] Comment: Immature granulocytes(IG's)percentage and absolute count will include metamyelocytes, myelocytes, and promyelocytes. Blood smears from CBCs yielding IG's will be scanned manually for concordance. If this scan disagrees with the automated IG or if promyelocytes are noted, a manual differential will be performed. Immature Gran Absolute 0.05(H) 0.00 - 0.04 x10(3)/[facility] Blood 03/08/2024 4:44 AM EDT 03/08/2024 5:05 AM EDT Narrative Resulting Agency Comment Spec In Lab Latonia Red MD HEMATOLOGY ORDERABLE S [facility] [place] [address] * (ABNORMAL) Hemogram (03/08/2024 4:44 AM EDT) White Blood Cell 10.0(H) 4.0 - 9.5 x10(3)/[facility] Red Blood Cell 5.24 4.58 - 5.54 x10(6)/[facility] Hemoglobin 12.7(L) 13.7 - 16.5 g/dL [facility] Hematocrit 39.2(L) 40.5 - 48.5 % [facility] Mean Cell Volume 74.8(L) 82.9 - 93.1 [facility] Mean Cell Hemoglobin 24.2(L) 27.5 - 32.1 pg [facility] Mean Cell Hemoglobin Concentration 32.4 32.0 - 35.7 g/dL [facility] Platelet 295 145 - 357 x10(3)/[facility] RDW Standard Deviation 40.1 36.0 - 45.0 [facility] RDW coefficient of variation 14.9(H) 11.4 - 13.8 % [facility] Mean Platelet Volume 10.1 7.6 - 12.9 [facility] NRBC% auto 0.0 % [facility] NRBC Absolute 0.000 0.000 - 0.000 x10(3)/[facility] Blood 03/08/2024 4:44 AM EDT 03/08/2024 5:05 AM EDT Narrative Resulting Agency Comment Spec In Lab Latonia Red MD HEMATOLOGY ORDERABLE S [facility] [place] [address] * (ABNORMAL) Comprehensive metabolic panel (non-fasting) (03/08/2024 4:44 AM EDT) Glucose 197 65 - 199 mg/dL [facility] Comment:Diabetes: >=200 mg/d L plus symptoms Blood Urea Nitrogen 3(L) 10 - 20 mg/dL [facility] Creatinine 0.57(L) 0.80 - 1.50 mg/dL [facility] Sodium 132(L) 135 - 145 mmol/L [facility] Potassium 3.2(L) 3.5 - 5.0 mmol/L [facility] Comment: Please note: ??Patients with WBC >100,000 may have falsely elevated Potassium levels. ??For accurate Potassium quantification in these patients send serum separator tube (gold top) for subsequent determinations. ??Contact the Clinical Chemistry Laboratory if there are any questions. Chloride 97(L) 98 - 107 mmol/L [facility] Carbon Dioxide 21(L) 22 - 31 mmol/L [facility] Anion Gap 14 5 - 15 mmol/L [facility] Calcium 8.8 8.5 - 10.5 mg/dL [facility] Protein, Total 6.1 6.1 - 8.0 g/dL [facility] Albumin 3.0(L) 3.2 - 5.2 g/dL [facility] Aspartate Aminotransferase 11 0 - 39 unit/L [facility] Alanine Aminotransferase 22 0 - 55 unit/L [facility] Alkaline Phosphatase 94 40 - 130 unit/L [facility] Bilirubin, Total 0.4 0.2 - 1.3 mg/dL [facility] Est Glomerular Filtration Rate 120 >=60 mL/min/1. 73 m?? [facility] Comment: This patient's estimated GFR [...] Hernandez MD CHEMISTRY ORDERABLES Performing Organization Address [facility]/ZIP Co de Phone Number [facility] [place] [address] * POCT Glucose (03/08/2024 4:25 AM EDT) Glucose, POC 168 65 - 199 mg/dL [facility] Comment: Supplemental ranges: <140 mg/dL before meals <180 mg/dL all other times of the day Blood 03/08/2024 4:25 AM EDT 03/08/2024 4:25 AM EDT Rudi Hernandez MD POINT OF CARE TEST O RDERABLES [facility] [place] [address] * POCT Glucose (03/08/2024 12:06 AM EDT) Glucose, POC 166 65 - 199 mg/dL [facility] Comment: Supplemental ranges: <140 mg/dL before meals <180 mg/dL all other times of the day Blood 03/08/2024 12:0 6 AM EDT 03/08/2024 12:06 AM EDT Rudi Hernandez MD POINT OF CARE TEST O RDERAVANNESSA Performing Organization Address [facility] Co de Phone Number [facility] [place] [address] * POCT Glucose (03/07/2024 8:35 PM EDT) Glucose, POC 177 65 - 199 mg/dL [facility] Comment: Supplemental ranges: <140 mg/dL before meals <180 mg/dL all other times of the day Blood 03/07/2024 8:35 PM EDT 03/07/2024 8:35 PM EDT Rudi Hernandez MD POINT OF CARE TEST O ARASHERAVANNESSA Performing Organization Address [facility] de Phone Number [facility] [place] [address] * POCT Glucose (03/07/2024 4:08 PM EDT) Glucose, POC 187 65 - 199 mg/dL [facility] Comment: Supplemental ranges: <140 mg/dL before meals <180 mg/dL all other times of the day Blood 03/07/2024 4:08 PM EDT 03/07/2024 4:08 PM EDT Rdui Hernandez MD POINT OF CARE TEST O RDERAVANNESSA Performing Organization Address [facility] Co de Phone Number [facility] [place] [address] * POCT Glucose (03/07/2024 12:20 PM EDT) Glucose, POC 183 65 - 199 mg/dL [facility] Comment: Supplemental ranges: <140 mg/dL before meals <180 mg/dL all other times of the day Blood 03/07/2024 12:2 0 PM EDT 03/07/2024 12:20 PM EDT Rudi Hernandez MD POINT OF CARE TEST O RDLITA [facility] [place] [address] * POCT Glucose (03/07/2024 8:35 AM EDT) [facility] Glucose, POC 155 65 - 199 mg/dL [facility] Comment: Supplemental ranges: <140 mg/dL before meals <180 mg/dL all other times of the day Blood 03/07/2024 8:35 AM EDT 03/07/2024 8:35 AM EDT Rudi Hernandez MD POINT OF CARE TEST O ELKIN Performing Organization Address [facility]/ZIP Co de Phone Number [facility] [place] [address] * (ABNORMAL) Differential, Automated (03/07/2024 4:53 AM EDT) [facility] Neutrophil % 81.0 % [facility] Neutrophil Absolute 6.52(H) 1.70 - 6.10 x10(3)/mc L [facility] Lymph % 11.1 % [facility] Lymphocytes Abs 0.9 0.9 - 3.2 x10(3)/mc L [facility] Monocyte % 5.8 % [facility] Monocyte Abs 0.5 0.3 - 0.9 x10(3)/mc L [facility] Eos % 1.1 % [facility] Eosinophils Abs 0.1 0.0 - 0.4 x10(3)/mc L [facility] Basophil % 0.5 % [facility] Baso Absolute 0.0 0.0 - 0.1 x10(3)/mc L [facility] Immature Gran % 0.50 % [facility] Comment: Immature granulocytes(IG's)percentage and absolute count will include metamyelocytes, myelocytes, and promyelocytes. Blood smears from CBCs yielding IG's will be scanned manually for concordance. If this scan disagrees with the automated IG or if promyelocytes are noted, a manual differential will be performed. Immature Gran Absolute 0.04 0.00 - 0.04 x10(3)/ L [facility] Blood 03/07/2024 4:53 AM EDT 03/07/2024 5:12 AM EDT Narrative Resulting Agency Comment Spec In Lab Latonia Red MD HEMATOLOGY ORDERABLE S [facility] [place] [address] * (ABNORMAL) Hemogram (03/07/2024 4:53 AM EDT) White Blood Cell 8.0 4.0 - 9.5 x10(3)/[facility] Red Blood Cell 4.89 4.58 - 5.54 x10(6)/ L [facility] Hemoglobin 11.9(L) 13.7 - 16.5 g/dL [facility] Hematocrit 37.5(L) 40.5 - 48.5 % [facility] Mean Cell Volume 76.7(L) 82.9 - 93.1 fL [facility] Mean Cell Hemoglobin 24.3(L) 27.5 - 32.1 pg [facility] Mean Cell Hemoglobin Concentration 31.7(L) 32.0 - 35.7 g/dL [facility] Platelet 230 145 - 357 x10(3)/ L [facility] RDW Standard Deviation 41.0 36.0 - 45.0 [facility] RDW coefficient of variation 14.7(H) 11.4 - 13.8 % [facility] Mean Platelet Volume 10.5 7.6 - 12.9 [facility] NRBC% auto 0.0 % [facility] NRBC Absolute 0.000 0.000 - 0.000 x10(3)/ L [facility] Blood 03/07/2024 4:53 AM EDT 03/07/2024 5:12 AM EDT Narrative Resulting Agency Comment Spec In Lab Latonia Red MD HEMATOLOGY ORDERABLE S [facility] [place] [address] * (ABNORMAL) Comprehensive metabolic panel (non-fasting) (03/07/2024 4:53 AM EDT) Glucose 180 65 - 199 mg/dL [facility] Comment:Diabetes: >=200 mg/d L plus symptoms Blood Urea Nitrogen 5(L) 10 - 20 mg/dL [facility] Creatinine 0.67(L) 0.80 - 1.50 mg/dL [facility] Sodium 136 135 - 145 mmol/L [facility] Potassium 3.8 3.5 - 5.0 mmol/L [facility] Comment: Please note: ??Patients with WBC >100,000 may have falsely elevated Potassium levels. ??For accurate Potassium quantification in these patients send serum separator tube (gold top) for subsequent determinations. ??Contact the Clinical Chemistry Laboratory if there are any questions. Chloride 99 98 - 107 mmol/L [facility] Carbon Dioxide 25 22 - 31 mmol/L [facility] Anion Gap 12 5 - 15 mmol/L [facility] Calcium 8.4(L) 8.5 - 10.5 mg/dL [facility] Protein, Total 5.9(L) 6.1 - 8.0 g/dL [facility] Albumin 3.0(L) 3.2 - 5.2 g/dL [facility] Aspartate Aminotransferase 11 0 - 39 unit/L [facility] Alanine Aminotransferase 25 0 - 55 unit/L [facility] Alkaline Phosphatase 88 40 - 130 unit/L [facility] Bilirubin, Total 0.4 0.2 - 1.3 mg/dL [facility] Est Glomerular Filtration Rate 114 >=60 mL/min/1. 73 m?? [facility] Comment: This patient's estimated GFR [...] Hernandez MD CHEMISTRY ORDERABLES Performing Organization Address [facility]/ZIP Co de Phone Number [facility] [place] [address] * POCT Glucose (03/07/2024 3:25 AM EDT) Glucose, POC 169 65 - 199 mg/dL [facility] Comment: Supplemental ranges: <140 mg/dL before meals <180 mg/dL all other times of the day Blood 03/07/2024 3:25 AM EDT 03/07/2024 3:25 AM EDT Rudi Hernandez MD POINT OF CARE TEST O RDERABLES Performing Organization Address City/[facility]/ZIP Co de Phone Number [facility] [place] [address] * POCT Glucose (03/06/2024 11:20 PM EDT) Glucose, POC 141 65 - 199 mg/dL [facility] Comment: Supplemental ranges: <140 mg/dL before meals <180 mg/dL all other times of the day Blood 03/06/2024 11:2 0 PM EDT 03/06/2024 11:20 PM EDT Rudi Hernandez MD POINT OF CARE TEST O ELKIN Performing Organization Address City/[facility]/ZIP Co de Phone Number [facility] [place] [address] * POCT Glucose (03/06/2024 8:39 PM EDT) Glucose, POC 152 65 - 199 mg/dL [facility] Comment: Supplemental ranges: <140 mg/dL before meals <180 mg/dL all other times of the day Blood 03/06/2024 8:39 PM EDT 03/06/2024 8:39 PM EDT Rudi Hernandez MD POINT OF CARE TEST O ELKIN Performing Organization Address [facility]/ZIP Co de Phone Number [facility] [place] [address] * POCT Glucose (03/06/2024 3:50 PM EDT) Glucose, POC 150 65 - 199 mg/dL [facility] Comment: Supplemental ranges: <140 mg/dL before meals <180 mg/dL all other times of the day Blood 03/06/2024 3:50 PM EDT 03/06/2024 3:50 PM EDT Rudi Hernandez MD POINT OF CARE TEST O ELKIN [facility] [place] [address] * POCT Glucose (03/06/2024 11:38 AM EDT) Glucose, POC 158 65 - 199 mg/dL [facility] Comment: Supplemental ranges: <140 mg/dL before meals <180 mg/dL all other times of the day Blood 03/06/2024 11:3 8 AM EDT 03/06/2024 11:38 AM EDT Rudi Hernandez MD POINT OF CARE TEST O RDERABLES Performing Organization Address [facility] Co de Phone Number [facility] [place] [address] * POCT Glucose (03/06/2024 8:07 AM EDT) Glucose, POC 172 65 - 199 mg/dL [facility] Comment: Supplemental ranges: <140 mg/dL before meals <180 mg/dL all other times of the day Blood 03/06/2024 8:07 AM EDT 03/06/2024 8:07 AM EDT Rudi Hernandez MD POINT OF CARE TEST O RDERABLES Performing Organization Address [facility] de Phone Number [facility] [place] [address] * EKG 12 Lead (03/06/2024 6:30 AM EDT) Ventricular rate 82 BPM MUSE SYSTEM Atrial Rate 82 BPM MUSE SYSTEM P-R Interval 164 ms MUSE SYSTEM QRS Duration 100 ms MUSE SYSTEM Q-T Interval 430 ms MUSE SYSTEM QTC Calculated (Bezet) 502 ms MUSE SYSTEM Calculated P [place] 49 degrees MUSE SYSTEM Calculated R [place] 63 degrees MUSE SYSTEM Calculated T [place] 7 degrees MUSE SYSTEM INTERPRETATION Normal sinus rhythm Prolonged QT Abnormal ECG No previous ECGs available Confirmed by MD Gomes Daniel ([id number]) on 03/07/2024 3:35:02 PM MUSE SYSTEM 03/06/2024 6:30 AM EDT 03/07/2024 3:35 PM EDT Rudi Hernandez MD ECG ORDERABLES Performing Organization Address [facility] Co de Phone Number MUSE SYSTEM * XR Abdomen Flat & Upright (03/06/2024 5:29 AM EDT) WORKSTATION ID [id number] DH RAD Anatomical Region Laterality Modality Abdomen [...] who have questions please contact the health chiropractic care that requested your imaging first. ? Narrative [...] patients who have questions please contactthe health chiropractic care that requested your imaging first. Rudi Hernandez MD IMG DX ORDERABLES * POCT Glucose (03/06/2024 4:39 AM EDT) [facility] Glucose, POC 163 65 - 199 mg/dL [facility] Comment: Supplemental ranges: <140 mg/dL before meals <180 mg/dL all other times of the day Blood 03/06/2024 4:39 AM EDT 03/06/2024 4:39 AM EDT Rudi Hernandez MD POINT OF CARE TEST O RDERABLES [facility] [place] [address] * Differential, Automated (03/06/2024 4:09 AM EDT) [facility] Neutrophil % 73.7 % [facility] Neutrophil Absolute 5.52 1.70 - 6.10 x10(3)/[facility] LABORATORY Lymph % 16.4 % [facility] Lymphocytes Abs 1.2 0.9 - 3.2 x10(3)/[facility] LABORATORY Monocyte % 6.8 % [facility] Monocyte Abs 0.5 0.3 - 0.9 x10(3)/[facility] LABORATORY Eos % 2.3 % [facility] Eosinophils Abs 0.2 0.0 - 0.4 x10(3)/[facility] LABORATORY Basophil % 0.5 % [facility] Baso Absolute 0.0 0.0 - 0.1 x10(3)/[facility] LABORATORY Immature Gran % 0.30 % [facility] Comment: Immature granulocytes(IG's)percentage and absolute count will include metamyelocytes, myelocytes, and promyelocytes. Blood smears from CBCs yielding IG's will be scanned manually for concordance. If this scan disagrees with the automated IG or if promyelocytes are noted, a manual differential will be performed. Immature Gran Absolute 0.02 0.00 - 0.04 x10(3)/[facility] LABORATORY Blood 03/06/2024 4:09 AM EDT 03/06/2024 4:29 AM EDT Narrative Resulting Agency Comment Spec In Lab Latonia Red MD HEMATOLOGY ORDERABLE S Performing Organization Address City/State/[facility] Co de Phone Number [facility] [place] [address] * (ABNORMAL) Hemogram (03/06/2024 4:09 AM EDT) White Blood Cell 7.5 4.0 - 9.5 x10(3)/[facility] LAB[facility] Red Blood Cell 4.98 4.58 - 5.54 x10(6)/ L [facility] Hemoglobin 12.1(L) 13.7 - 16.5 g/dL [facility] Hematocrit 38.4(L) 40.5 - 48.5 % [facility] Mean Cell Volume 77.1(L) 82.9 - 93.1 fL [facility] Mean Cell Hemoglobin 24.3(L) 27.5 - 32.1 pg [facility] Mean Cell Hemoglobin Concentration 31.5(L) 32.0 - 35.7 g/dL [facility] Platelet 220 145 - 357 x10(3)/[facility] RDW Standard Deviation 41.1 36.0 - 45.0 fL [facility] RDW coefficient of variation 14.8(H) 11.4 - 13.8 % [facility] Mean Platelet Volume 10.5 7.6 - 12.9 fL [facility] NRBC% auto 0.0 % [facility] NRBC Absolute 0.000 0.000 - 0.000 x10(3)/mc L [facility] Blood 03/06/2024 4:09 AM EDT 03/06/2024 4:29 AM EDT Narrative Resulting Agency Comment Spec In Lab Latonia Red MD HEMATOLOGY ORDERABLE S [facility] [place] [address] * (ABNORMAL) Comprehensive metabolic panel (non-fasting) (03/06/2024 4:09 AM EDT) Glucose 169 65 - 199 mg/dL [facility] Comment:Diabetes: >=200 mg/d L plus symptoms Blood Urea Nitrogen 6(L) 10 - 20 mg/dL [facility] Creatinine 0.70(L) 0.80 - 1.50 mg/dL [facility] Sodium 135 135 - 145 mmol/L [facility] Potassium 3.4(L) 3.5 - 5.0 mmol/L [facility] Comment: Please note: ??Patients with WBC >100,000 may have falsely elevated Potassium levels. ??For accurate Potassium quantification in these patients send serum separator tube (gold top) for subsequent determinations. ??Contact the Clinical Chemistry Laboratory if there are any questions. Chloride 98 98 - 107 mmol/L [facility] Carbon Dioxide 27 22 - 31 mmol/L [facility] Anion Gap 10 5 - 15 mmol/L [facility] Calcium 8.6 8.5 - 10.5 mg/dL [facility] Protein, Total 5.9(L) 6.1 - 8.0 g/dL [facility] Albumin 3.1(L) 3.2 - 5.2 g/dL [facility] Aspartate Aminotransferase 12 0 - 39 unit/L [facility] Alanine Aminotransferase 36 0 - 55 unit/L [facility] Alkaline Phosphatase 86 40 - 130 unit/L [facility] Bilirubin, Total 0.4 0.2 - 1.3 mg/dL [facility] Est Glomerular Filtration Rate 113 >=60 mL/min/1. 73 m?? [facility] Comment: This patient's estimated GFR [...] [facility]/ZIP Co de Phone Number [facility] [place] [address] * POCT Glucose (03/05/2024 11:13 PM EDT) Glucose, POC 151 65 - 199 mg/dL [facility] Comment: Supplemental ranges: <140 mg/dL before meals <180 mg/dL all other times of the day Blood 03/05/2024 11:1 3 PM EDT 03/05/2024 11:13 PM EDT Rudi Hernandez MD POINT OF CARE TEST O RDERABLES [facility] [place] [address] * POCT Glucose (03/05/2024 7:29 PM EDT) Glucose, POC 160 65 - 199 mg/dL [facility] Comment: Supplemental ranges: <140 mg/dL before meals <180 mg/dL all other times of the day Blood 03/05/2024 7:29 PM EDT 03/05/2024 7:29 PM EDT Rudi Hernandez MD POINT OF CARE TEST O RDERABLES Performing Organization Address [facility] Co de Phone Number [facility] [place] [address] * POCT Glucose (03/05/2024 4:40 PM EDT) Glucose, POC 141 65 - 199 mg/dL [facility] Comment: Supplemental ranges: <140 mg/dL before meals <180 mg/dL all other times of the day Blood 03/05/2024 4:40 PM EDT 03/05/2024 4:40 PM EDT Rudi Hernandez MD POINT OF CARE TEST O RDERABLES Performing Organization Address [facility] Co de Phone Number [facility] [place] [address] * Amylase Level Body Fluid BASIA Drain (03/05/2024 11:20 AM EDT) Amylase, Fluid 32 unit/L [facility] Comment: Reference intervals are unavailable for this test in body fluids. Comparison of this result with the concentration in blood, serum, or plasma is recommended. This test has not been cleared by the [place] FDA. Performance characteristics of this test for the analysis of body fluids were determined by [facility] in accordance with CLIA requirements. This laboratory is qualified under CLIA to perform high-complexity testing. Amylase BF Type BASIA Drain [facility] BASIA Drain 03/05/2024 11:2 0 AM EDT 03/05/2024 11:37 AM EDT Narrative Resulting Agency Comment Spec In Lab Rudi Hernandez MD BODY FLUIDS AND STOO LS ORDERABLES [facility] [place] [address] * POCT Glucose (03/05/2024 11:14 AM EDT) Glucose, POC 180 65 - 199 mg/dL [facility] Comment: Supplemental ranges: <140 mg/dL before meals <180 mg/dL all other times of the day Blood 03/05/2024 11:1 4 AM EDT 03/05/2024 11:14 AM EDT Rudi Hernandez MD POINT OF CARE TEST O RDERABLES Performing Organization Address City/[facility]/ZIP Co de Phone Number [facility] [place] [address] * POCT Glucose (03/05/2024 7:47 AM EDT) Glucose, POC 180 65 - 199 mg/dL [facility] Comment: Supplemental ranges: <140 mg/dL before meals <180 mg/dL all other times of the day Blood 03/05/2024 7:47 AM EDT 03/05/2024 7:47 AM EDT Rudi Hernandez MD POINT OF CARE TEST O RDERAVANNESSA [facility] [place] [address] * POCT Glucose (03/05/2024 5:14 AM EDT) Glucose, POC 173 65 - 199 mg/dL [facility] Comment: Supplemental ranges: <140 mg/dL before meals <180 mg/dL all other times of the day Blood 03/05/2024 5:14 AM EDT 03/05/2024 5:14 AM EDT Rudi Hernandez MD POINT OF CARE TEST O RDERABLES Performing Organization Address City/[facility]/ZIP Co de Phone Number [facility] [place] [address] * (ABNORMAL) Differential, Automated (03/05/2024 4:21 AM EDT) Neutrophil % 75.2 % [facility] Neutrophil Absolute 6.45(H) 1.70 - 6.10 x10(3)/ L [facility] Lymph % 13.8 % [facility] Lymphocytes Abs 1.2 0.9 - 3.2 x10(3)/[facility] Monocyte % 7.7 % [facility] Monocyte Abs 0.7 0.3 - 0.9 x10(3)/[facility] Eos % 2.3 % [facility] Eosinophils Abs 0.2 0.0 - 0.4 x10(3)/[facility] Basophil % 0.5 % [facility] Baso Absolute 0.0 0.0 - 0.1 x10(3)/[facility] Immature Gran % 0.50 % [facility] Comment: Immature granulocytes(IG's)percentage and absolute count will include metamyelocytes, myelocytes, and promyelocytes. Blood smears from CBCs yielding IG's will be scanned manually for concordance. If this scan disagrees with the automated IG or if promyelocytes are noted, a manual differential will be performed. Immature Gran Absolute 0.04 0.00 - 0.04 x10(3)/ L [facility] Blood 03/05/2024 4:21 AM EDT 03/05/2024 4:39 AM EDT Narrative Resulting Agency Comment Spec In Lab Latonia Red MD HEMATOLOGY ORDERABLE S [facility] [place] [address] * (ABNORMAL) Hemogram (03/05/2024 4:21 AM EDT) [facility] Signature White Blood Cell 8.6 4.0 - 9.5 x10(3)/ L [facility] Red Blood Cell 4.62 4.58 - 5.54 x10(6)/[facility] Hemoglobin 11.5(L) 13.7 - 16.5 g/dL [facility] Hematocrit 36.5(L) 40.5 - 48.5 % [facility] Mean Cell Volume 79.0(L) 82.9 - 93.1 fL [facility] Mean Cell Hemoglobin 24.9(L) 27.5 - 32.1 pg [facility] Mean Cell Hemoglobin Concentration 31.5(L) 32.0 - 35.7 g/dL [facility] Platelet 165 145 - 357 x10(3)/[facility] RDW Standard Deviation 43.4 36.0 - 45.0 [facility] RDW coefficient of variation 15.1(H) 11.4 - 13.8 % [facility] Mean Platelet Volume 10.7 7.6 - 12.9 fL [facility] NRBC% auto 0.0 % [facility] NRBC Absolute 0.000 0.000 - 0.000 x10(3)/[facility] Blood 03/05/2024 4:21 AM EDT 03/05/2024 4:39 AM EDT Narrative Resulting Agency Comment Spec In Lab Latonia Red MD HEMATOLOGY ORDERABLE S [facility] [place] [address] * (ABNORMAL) Comprehensive metabolic panel (non-fasting) (03/05/2024 4:21 AM EDT) Glucose 182 65 - 199 mg/dL [facility] Comment:Diabetes: >=200 mg/d L plus symptoms Blood Urea Nitrogen 6(L) 10 - 20 mg/dL [facility] Creatinine 0.80 0.80 - 1.50 mg/dL [facility] Sodium 135 135 - 145 mmol/L [facility] Potassium 3.3(L) 3.5 - 5.0 mmol/L [facility] Comment: Please note: ??Patients with WBC >100,000 may have falsely elevated Potassium levels. ??For accurate Potassium quantification in these patients send serum separator tube (gold top) for subsequent determinations. ??Contact the Clinical Chemistry Laboratory if there are any questions. Chloride 100 98 - 107 mmol/L [facility] Carbon Dioxide 26 22 - 31 mmol/L [facility] Anion Gap 9 5 - 15 mmol/L [facility] Calcium 8.1(L) 8.5 - 10.5 mg/dL [facility] Protein, Total 5.6(L) 6.1 - 8.0 g/dL [facility] Albumin 2.9(L) 3.2 - 5.2 g/dL [facility] Aspartate Aminotransferase 14 0 - 39 unit/L [facility] Alanine Aminotransferase 45 0 - 55 unit/L [facility] Alkaline Phosphatase 79 40 - 130 unit/L [facility] Bilirubin, Total 0.4 0.2 - 1.3 mg/dL [facility] Est Glomerular Filtration Rate 108 >=60 mL/min/1. 73 m?? [facility] Comment: This patient's estimated GFR [...] In Lab Rudi Hernandez MD CHEMISTRY ORDERABLES [facility] [place] [address] * POCT Glucose (03/05/2024 12:28 AM EDT) Glucose, POC 166 65 - 199 mg/dL [facility] Comment: Supplemental ranges: <140 mg/dL before meals <180 mg/dL all other times of the day Blood 03/05/2024 12:2 8 AM EDT 03/05/2024 12:28 AM EDT Rudi Hernandez MD POINT OF CARE TEST O RDERABLES Performing Organization Address City/[facility]/ZIP Co de Phone Number [facility] [place] [address] * POCT Glucose (03/04/2024 8:02 PM EDT) Glucose, POC 174 65 - 199 mg/dL [facility] Comment: Supplemental ranges: <140 mg/dL before meals <180 mg/dL all other times of the day Blood 03/04/2024 8:02 PM EDT 03/04/2024 8:02 PM EDT Rudi Hernandez MD POINT OF CARE TEST O RDERABLES [facility] [place] [address] * POCT Glucose (03/04/2024 4:18 PM EDT) Glucose, POC 174 65 - 199 mg/dL [facility] Comment: Supplemental ranges: <140 mg/dL before meals <180 mg/dL all other times of the day Blood 03/04/2024 4:18 PM EDT 03/04/2024 4:18 PM EDT Rudi Hernandez MD POINT OF CARE TEST O RDERABLES Performing Organization Address [facility] Co de Phone Number [facility] [place] [address] * POCT Glucose (03/04/2024 11:34 AM EDT) Glucose, POC 173 65 - 199 mg/dL [facility] Comment: Supplemental ranges: <140 mg/dL before meals <180 mg/dL all other times of the day Blood 03/04/2024 11:3 4 AM EDT 03/04/2024 11:34 AM EDT Rudi Hernandez MD POINT OF CARE TEST O RDERABLES Performing Organization Address [facility] Co de Phone Number [facility] [place] [address] * POCT Glucose (03/04/2024 7:30 AM EDT) Glucose, POC 185 65 - 199 mg/dL [facility] Comment: Supplemental ranges: <140 mg/dL before meals <180 mg/dL all other times of the day Blood 03/04/2024 7:30 AM EDT 03/04/2024 7:30 AM EDT Rudi Hernandez MD POINT OF CARE TEST O RDERABLES Performing Organization Address [facility] Co de Phone Number [facility] [place] [address] * (ABNORMAL) Differential, Automated (03/04/2024 6:12 AM EDT) Neutrophil % 85.5 % [facility] Neutrophil Absolute 9.96(H) 1.70 - 6.10 x10(3)/mc L [facility] Lymph % 7.7 % [facility] Lymphocytes Abs 0.9 0.9 - 3.2 x10(3)/[facility] Monocyte % 5.3 % [facility] Monocyte Abs 0.6 0.3 - 0.9 x10(3)/[facility] Eos % 0.7 % [facility] Eosinophils Abs 0.1 0.0 - 0.4 x10(3)/[facility] Basophil % 0.3 % [facility] Baso Absolute 0.0 0.0 - 0.1 x10(3)/[facility] Immature Gran % 0.50 % [facility] Comment: Immature granulocytes(IG's)percentage and absolute count will include metamyelocytes, myelocytes, and promyelocytes. Blood smears from CBCs yielding IG's will be scanned manually for concordance. If this scan disagrees with the automated IG or if promyelocytes are noted, a manual differential will be performed. Immature Gran Absolute 0.06(H) 0.00 - 0.04 x10(3)/[facility] Blood 03/04/2024 6:12 AM EDT 03/04/2024 6:53 AM EDT Narrative Resulting Agency Comment Spec In Lab Latonia Red MD HEMATOLOGY ORDERABLE S [facility] [place] [address] * (ABNORMAL) Hemogram (03/04/2024 6:12 AM EDT) White Blood Cell 11.6(H) 4.0 - 9.5 x10(3)/[facility] Red Blood Cell 4.72 4.58 - 5.54 x10(6)/[facility] Hemoglobin 11.7(L) 13.7 - 16.5 g/dL [facility] Hematocrit 37.1(L) 40.5 - 48.5 % [facility] Mean Cell Volume 78.6(L) 82.9 - 93.1 fL [facility] Mean Cell Hemoglobin 24.8(L) 27.5 - 32.1 pg [facility] Mean Cell Hemoglobin Concentration 31.5(L) 32.0 - 35.7 g/dL [facility] Platelet 165 145 - 357 x10(3)/mc L [facility] RDW Standard Deviation 44.1 36.0 - 45.0 fL [facility] RDW coefficient of variation 15.3(H) 11.4 - 13.8 % [facility] Mean Platelet Volume 10.7 7.6 - 12.9 [facility] NRBC% auto 0.0 % [facility] NRBC Absolute 0.000 0.000 - 0.000 x10(3)/mc L [facility] Blood 03/04/2024 6:12 AM EDT 03/04/2024 6:53 AM EDT Narrative Resulting Agency Comment Spec In Lab Latonia Red MD HEMATOLOGY ORDERABLE S [facility] [place] [address] * (ABNORMAL) Comprehensive metabolic panel (non-fasting) (03/04/2024 6:12 AM EDT) Glucose 204(H) 65 - 199 mg/dL [facility] Comment:Diabetes: >=200 mg/d L plus symptoms Blood Urea Nitrogen 8(L) 10 - 20 mg/dL [facility] Creatinine 0.76(L) 0.80 - 1.50 mg/dL [facility] Sodium 135 135 - 145 mmol/L [facility] Potassium 3.5 3.5 - 5.0 mmol/L [facility] Comment: Please note: ??Patients with WBC >100,000 may have falsely elevated Potassium levels. ??For accurate Potassium quantification in these patients send serum separator tube (gold top) for subsequent determinations. ??Contact the Clinical Chemistry Laboratory if there are any questions. Chloride 100 98 - 107 mmol/L [facility] Carbon Dioxide 25 22 - 31 mmol/L [facility] Anion Gap 10 5 - 15 mmol/L [facility] Calcium 8.3(L) 8.5 - 10.5 mg/dL [facility] Protein, Total 5.6(L) 6.1 - 8.0 g/dL [facility] Albumin 3.0(L) 3.2 - 5.2 g/dL [facility] Aspartate Aminotransferase 19 0 - 39 unit/L [facility] Alanine Aminotransferase 68(H) 0 - 55 unit/L [facility] Alkaline Phosphatase 84 40 - 130 unit/L [facility] Bilirubin, Total 0.4 0.2 - 1.3 mg/dL [facility] Est Glomerular Filtration Rate 110 >=60 mL/min/1. 73 m?? [facility] Comment: This patient's estimated GFR [...] In Lab Rudi Hernandez MD CHEMISTRY ORDERABLES [facility] [place] [address] * Amylase Level Body Fluid BASIA Drain (03/04/2024 5:30 AM EDT) Amylase, Fluid 395 unit/L [facility] Comment: Reference intervals are unavailable for this test in body fluids. Comparison of this result with the concentration in blood, serum, or plasma is recommended. This test has not been cleared by the [place] FDA. Performance characteristics of this test for the analysis of body fluids were determined by [facility] in accordance with CLIA requirements. This laboratory is qualified under CLIA to perform high-complexity testing. Amylase BF Type BASIA Drain [facility] BASIA Drain 03/04/2024 5:30 AM EDT 03/04/2024 5:41 AM EDT Narrative Resulting Agency Comment Spec In Lab Rudi Hernandez MD BODY FLUIDS AND STOO LS ORDERABLES Performing Organization Address [facility]/ZIP Co de Phone Number [facility] [place] [address] * POCT Glucose (03/04/2024 5:15 AM EDT) Glucose, POC 171 65 - 199 mg/dL [facility] Comment: Supplemental ranges: <140 mg/dL before meals <180 mg/dL all other times of the day Blood 03/04/2024 5:15 AM EDT 03/04/2024 5:15 AM EDT Rudi Hernandez MD POINT OF CARE TEST O RDERABLES Performing Organization Address City/[facility]/ZIP Co de Phone Number [facility] [place] [address] * POCT Glucose (03/03/2024 11:19 PM EDT) Glucose, POC 181 65 - 199 mg/dL [facility] Comment: Supplemental ranges: <140 mg/dL before meals <180 mg/dL all other times of the day Blood 03/03/2024 11:1 9 PM EDT 03/03/2024 11:19 PM EDT Rudi Hernandez MD POINT OF CARE TEST O RDERAVANNESSA Performing Organization Address City/[facility] Co de Phone Number [facility] [place] [address] * POCT Glucose (03/03/2024 8:31 PM EDT) Glucose, POC 181 65 - 199 mg/dL [facility] Comment: Supplemental ranges: <140 mg/dL before meals <180 mg/dL all other times of the day Blood 03/03/2024 8:31 PM EDT 03/03/2024 8:31 PM EDT Rudi Hernandez MD POINT OF CARE TEST O ARASHERAVANNESSA Performing Organization Address [facility] Co de Phone Number [facility] [place] [address] * POCT Glucose (03/03/2024 3:59 PM EDT) Glucose, POC 174 65 - 199 mg/dL [facility] Comment: Supplemental ranges: <140 mg/dL before meals <180 mg/dL all other times of the day Blood 03/03/2024 3:59 PM EDT 03/03/2024 3:59 PM EDT Rudi Hernandez MD POINT OF CARE TEST O RDERABLES Performing Organization Address [facility]/ZIP Co de Phone Number [facility] [place] [address] * (ABNORMAL) Basic Metabolic Panel (non-fasting) (03/03/2024 1:13 PM EDT) Glucose 175 65 - 199 mg/dL [facility] Comment:Diabetes: >=200 mg/d L plus symptoms Blood Urea Nitrogen 11 10 - 20 mg/dL [facility] Creatinine 0.79(L) 0.80 - 1.50 mg/dL [facility] Sodium 137 135 - 145 mmol/L [facility] Potassium 3.6 3.5 - 5.0 mmol/L [facility] Comment: Please note: ??Patients with WBC >100,000 may have falsely elevated Potassium levels. ??For accurate Potassium quantification in these patients send serum separator tube (gold top) for subsequent determinations. ??Contact the Clinical Chemistry Laboratory if there are any questions. Chloride 103 98 - 107 mmol/L [facility] Carbon Dioxide 25 22 - 31 mmol/L [facility] Anion Gap 9 5 - 15 mmol/L [facility] Calcium 8.2(L) 8.5 - 10.5 mg/dL [facility] Est Glomerular Filtration Rate 109 >=60 mL/min/1. 73 m?? [facility] Comment: This patient's estimated GFR [...] In Lab Rudi Hernandez MD CHEMISTRY ORDERABLES [facility] [place] [address] * POCT Glucose (03/03/2024 12:20 PM EDT) Glucose, POC 156 65 - 199 mg/dL [facility] Comment: Supplemental ranges: <140 mg/dL before meals <180 mg/dL all other times of the day Blood 03/03/2024 12:2 0 PM EDT 03/03/2024 12:20 PM EDT Rudi Hernandez MD POINT OF CARE TEST O RDERABLES [facility] [place] [address] * Amylase Level Body Fluid (03/03/2024 11:40 AM EDT) Amylase, Fluid 645 unit/L [facility] Comment: Reference intervals are unavailable for this test in body fluids. Comparison of this result with the concentration in blood, serum, or plasma is recommended. This test has not been cleared by the [place] FDA. Performance characteristics of this test for the analysis of body fluids were determined by [facility] in accordance with CLIA requirements. This laboratory is qualified under CLIA to perform high-complexity testing. Amylase BF Type BASIA Drain [facility] BASIA Drain Other / Unknown 03/03/2024 1 1:40 AM EDT 03/03/2024 11:50 AM EDT Narrative Resulting Agency Comment Spec In Lab Latonia Red MD BODY FLUIDS AND STOO LS ORDERABLES Performing Organization Address City/[facility]/ZIP Co de Phone Number [facility] [place] [address] * POCT Glucose (03/03/2024 8:08 AM EDT) Glucose, POC 166 65 - 199 mg/dL [facility] Comment: Supplemental ranges: <140 mg/dL before meals <180 mg/dL all other times of the day Blood 03/03/2024 8:08 AM EDT 03/03/2024 8:08 AM EDT Rudi Hernandez MD POINT OF CARE TEST O RDERABLES [facility] [place] [address] * POCT Glucose (03/03/2024 3:57 AM EDT) Glucose, POC 159 65 - 199 mg/dL [facility] Comment: Supplemental ranges: <140 mg/dL before meals <180 mg/dL all other times of the day Blood 03/03/2024 3:57 AM EDT 03/03/2024 3:57 AM EDT Rudi Hernandez MD POINT OF CARE TEST O RDERABLES Performing Organization Address [facility] Co de Phone Number [facility] [place] [address] * Creatinine, urine, random (03/03/2024 1:19 AM EDT) Creatinine, Urine 288 mg/dL [facility] Urine 03/03/2024 1:19 AM EDT 03/03/2024 1:28 AM EDT Narrative Resulting Agency Comment Spec In Lab Rudi Hernandez MD URINE ORDERABLES Performing Organization Address [facility] Co de Phone Number [facility] [place] [address] * Sodium, urine, random (03/03/2024 1:19 AM EDT) Sodium, Urine <20 mmol/L [facility] Urine 03/03/2024 1:19 AM EDT 03/03/2024 1:28 AM EDT Narrative Resulting Agency Comment Spec In Lab Rudi Hernandez MD URINE ORDERABLES Performing Organization Address [facility] Co de Phone Number [facility] [place] [address] * Green Tube HOLD (03/03/2024 1:04 AM EDT) Green Hold Sample in lab. [facility] Blood Venous Draw / Unknown 03/03/2024 1:04 AM EDT 03/03/2024 1:12 AM EDT Latonia Red MD CHEMISTRY ORDERABLES Performing Organization Address City/[facility]/ZIP Co de Phone Number [facility] [place] [address] * (ABNORMAL) Differential, Automated (03/03/2024 1:04 AM EDT) Neutrophil % 85.5 % [facility] Neutrophil Absolute 13.27(H) 1.70 - 6.10 x10(3)/ L [facility] Lymph % 7.5 % [facility] Lymphocytes Abs 1.2 0.9 - 3.2 x10(3)/ L [facility] Monocyte % 6.0 % [facility] Monocyte Abs 0.9 0.3 - 0.9 x10(3)/ L [facility] Eos % 0.2 % [facility] Eosinophils Abs 0.0 0.0 - 0.4 x10(3)/[facility] Basophil % 0.2 % [facility] Baso Absolute 0.0 0.0 - 0.1 x10(3)/ L [facility] Immature Gran % 0.60 % [facility] Comment: Immature granulocytes(IG's)percentage and absolute count will include metamyelocytes, myelocytes, and promyelocytes. Blood smears from CBCs yielding IG's will be scanned manually for concordance. If this scan disagrees with the automated IG or if promyelocytes are noted, a manual differential will be performed. Immature Gran Absolute 0.10(H) 0.00 - 0.04 x10(3)/ L [facility] Blood 03/03/2024 1:04 AM EDT 03/03/2024 1:11 AM EDT Narrative Resulting Agency Comment Spec In Lab Kamryn Kim MD HEMATOLOGY ORDERA BLES [facility] [place] [address] * (ABNORMAL) Hemogram (03/03/2024 1:04 AM EDT) White Blood Cell 15.5(H) 4.0 - 9.5 x10(3)/[facility] LABORATORY Red Blood Cell 4.81 4.58 - 5.54 x10(6)/[facility] Hemoglobin 11.7(L) 13.7 - 16.5 g/dL [facility] Hematocrit 37.2(L) 40.5 - 48.5 % [facility] Mean Cell Volume 77.3(L) 82.9 - 93.1 fL [facility] Mean Cell Hemoglobin 24.3(L) 27.5 - 32.1 pg [facility] Mean Cell Hemoglobin Concentration 31.5(L) 32.0 - 35.7 g/dL [facility] Platelet 169 145 - 357 x10(3)/[facility] RDW Standard Deviation 43.7 36.0 - 45.0 [facility] LABORATORY RDW coefficient of variation 15.5(H) 11.4 - 13.8 % [facility] Mean Platelet Volume 10.9 7.6 - 12.9 [facility]ORY NRBC% auto 0.0 % [facility] NRBC Absolute 0.000 0.000 - 0.000 x10(3)/[facility] Blood 03/03/2024 1:04 AM EDT 03/03/2024 1:11 AM EDT Narrative Resulting Agency Comment Spec In Lab Kamryn Kim MD HEMATOLOGY ORDERA BLES [facility] [place] [address] * Lactate, whole blood, send to lab ([facility] (03/03/2024 1:04 AM EDT) Lactate WB 1.5 0.5 - 2.2 mmol/L [facility] Blood 03/03/2024 1:04 AM EDT 03/03/2024 1:11 AM EDT Narrative Resulting Agency Comment Spec In Lab Rudi Hernandez MD CHEMISTRY ORDERABLES [facility] [place] [address] * (ABNORMAL) Phosphorus (03/03/2024 1:04 AM EDT) Phosphorus 2.2(L) 2.5 - 4.5 mg/dL [facility] Blood 03/03/2024 1:04 AM EDT 03/03/2024 1:11 AM EDT Narrative Resulting Agency Comment Spec In Lab Rudi Hernandez MD CHEMISTRY ORDERABLES Performing Organization Address [facility]/ZIP Co de Phone Number [facility] [place] [address] * Magnesium (03/03/2024 1:04 AM EDT) Magnesium 0.78 0.69 - 1.07 mmol/L [facility] Blood 03/03/2024 1:04 AM EDT 03/03/2024 1:11 AM EDT Narrative Resulting Agency Comment Spec In Lab Rudi Hernandez MD CHEMISTRY ORDERABLES Performing Organization Address City/[facility]/ZIP Co de Phone Number [facility] [place] [address] * (ABNORMAL) Comprehensive metabolic panel (non-fasting) (03/03/2024 1:04 AM EDT) Glucose 192 65 - 199 mg/dL [facility] Comment:Diabetes: >=200 mg/d L plus symptoms Blood Urea Nitrogen 16 10 - 20 mg/dL [facility] Creatinine 1.16 0.80 - 1.50 mg/dL [facility] Sodium 137 135 - 145 mmol/L [facility] Potassium 3.9 3.5 - 5.0 mmol/L [facility] Comment: result rechecked-RSG Please note: ??Patients with WBC >100,000 may have falsely elevated Potassium levels. ??For accurate Potassium quantification in these patients send serum separator tube (gold top) for subsequent determinations. ??Contact the Clinical Chemistry Laboratory if there are any questions. Chloride 101 98 - 107 mmol/L [facility] Carbon Dioxide 24 22 - 31 mmol/L [facility] Anion Gap 12 5 - 15 mmol/L [facility] Calcium 8.1(L) 8.5 - 10.5 mg/dL [facility] Protein, Total 5.3(L) 6.1 - 8.0 g/dL [facility] Albumin 2.9(L) 3.2 - 5.2 g/dL [facility] Aspartate Aminotransferase 64(H) 0 - 39 unit/L [facility] Alanine Aminotransferase 111(H) 0 - 55 unit/L [facility] Alkaline Phosphatase 83 40 - 130 unit/L [facility] Bilirubin, Total 0.6 0.2 - 1.3 mg/dL [facility] Est Glomerular Filtration Rate 77 >=60 mL/min/1. 73 m?? [facility] Comment: This patient's estimated GFR [...] Hernandez MD CHEMISTRY ORDERABLES Performing Organization Address [facility] Co de Phone Number [facility] [place] [address] * POCT Glucose (03/02/2024 10:59 PM EDT) Glucose, POC 181 65 - 199 mg/dL [facility] Comment: Supplemental ranges: <140 mg/dL before meals <180 mg/dL all other times of the day Blood 03/02/2024 10:5 9 PM EDT 03/02/2024 10:59 PM EDT Rudi Hernandez MD POINT OF CARE TEST O RDERABLES Performing Organization Address [facility] de Phone Number [facility] [place] [address] * XR Abdomen 1 view (Generic) (03/02/2024 9:54 PM EDT) [employer] WORKSTATION ID [id number] RAD Anatomical Region Laterality Modality Abdomen N/A [...] who have questions please contact the health chiropractic care that requested your imaging first. ? Narrative [...] patients who have questions please contactthe health chiropractic care that requested your imaging first. Rudi Hernandez MD IMG DX ORDERABLES * POCT Glucose (03/02/2024 7:41 PM EDT) [facility] Signature Glucose, POC 186 65 - 199 mg/dL [facility] Comment: Supplemental ranges: <140 mg/dL before meals <180 mg/dL all other times of the day Blood 03/02/2024 7:41 PM EDT 03/02/2024 7:41 PM EDT Rudi Hernandez MD POINT OF CARE TEST O RDERABLES [facility] [place] [place] [address] * XR Abdomen 1 view (Generic) (03/02/2024 7:38 PM EDT) Pathologist [employer] WORKSTATION ID [id number] RAD Anatomical Region Laterality Modality Abdomen N/A [...] who have questions please contact the health chiropractic care that requested your imaging first. ? Narrative [...] patients who have questions please contactthe health chiropractic care that requested your imaging first. Rudi Hernandez MD IMG DX ORDERABLES * POCT Glucose (03/02/2024 4:00 PM EDT) Glucose, POC 179 65 - 199 mg/dL [facility] Comment: Supplemental ranges: <140 mg/dL before meals <180 mg/dL all other times of the day Blood 03/02/2024 4:00 PM EDT 03/02/2024 4:00 PM EDT Rudi Hernandez MD POINT OF CARE TEST O RDERABLES [facility] [place] [address] * POCT Glucose (03/02/2024 11:12 AM EDT) Glucose, POC 183 65 - 199 mg/dL [facility] Comment: Supplemental ranges: <140 mg/dL before meals <180 mg/dL all other times of the day Blood 03/02/2024 11:1 2 AM EDT 03/02/2024 11:12 AM EDT Rudi Hernandez MD POINT OF CARE TEST O RDERABLES Performing Organization Address City/[facility]/ZIP Co de Phone Number [facility] [place] [address] * POCT Glucose (03/02/2024 7:48 AM EDT) Glucose, POC 170 65 - 199 mg/dL [facility] Comment: Supplemental ranges: <140 mg/dL before meals <180 mg/dL all other times of the day Blood 03/02/2024 7:48 AM EDT 03/02/2024 7:48 AM EDT Rudi Hernandez MD POINT OF CARE TEST O RDERABLES Performing Organization Address [facility]/ZIP Co de Phone Number [facility] [place] [address] * (ABNORMAL) Aspartate Aminotransferase (03/02/2024 5:27 AM EDT) Aspartate Aminotransferase 89(H) 0 - 39 unit/L [facility] Blood 03/02/2024 5:27 AM EDT 03/02/2024 6:06 AM EDT Narrative Resulting Agency Comment Spec In Lab Rudi Hernandez MD CHEMISTRY ORDERABLES Performing Organization Address City/[facility]/ZIP Co de Phone Number [facility] [place] [address] * (ABNORMAL) Hemoglobin A1c (03/02/2024 4:30 AM EDT) Hemoglobin A1c 8.9(H) 4.3 - 5.6 % [facility] Comment: Reference Range: 4.3 - [...] Mellitus, Diabetes Care 2013; 36: Suppl. 1, E46-26 Estimated Average Glucose 208 mg/dL [facility] Blood Venous Draw / Unknown 03/02/2024 4:30 AM EDT 03/02/2024 1:54 PM EDT Narrative Resulting Agency Comment Spec In Lab Munira Berry APRN CHEMISTRY ORDERABLES [facility] [place] [address] * (ABNORMAL) Differential, Automated (03/02/2024 4:30 AM EDT) Neutrophil % 84.4 % [facility] Neutrophil Absolute 10.79(H) 1.70 - 6.10 x10(3)/mc L [facility] Lymph % 9.7 % [facility] Lymphocytes Abs 1.2 0.9 - 3.2 x10(3)/mc L [facility] Monocyte % 5.1 % [facility] Monocyte Abs 0.6 0.3 - 0.9 x10(3)/mc L [facility] Eos % 0.1 % [facility] Eosinophils Abs 0.0 0.0 - 0.4 x10(3)/mc L [facility] Basophil % 0.2 % [facility] Baso Absolute 0.0 0.0 - 0.1 x10(3)/mc L [facility] Immature Gran % 0.50 % [facility] Comment: Immature granulocytes(IG's)percentage and absolute count will include metamyelocytes, myelocytes, and promyelocytes. Blood smears from CBCs yielding IG's will be scanned manually for concordance. If this scan disagrees with the automated IG or if promyelocytes are noted, a manual differential will be performed. Immature Gran Absolute 0.06(H) 0.00 - 0.04 x10(3)/ L [facility] Blood 03/02/2024 4:30 AM EDT 03/02/2024 4:36 AM EDT Narrative Resulting Agency Comment Spec In Lab Latonia Red MD HEMATOLOGY ORDERABLE S [facility] [place] [address] * (ABNORMAL) Hemogram (03/02/2024 4:30 AM EDT) White Blood Cell 12.8(H) 4.0 - 9.5 x10(3)/[facility] Red Blood Cell 5.41 4.58 - 5.54 x10(6)/[facility] Hemoglobin 13.3(L) 13.7 - 16.5 g/dL [facility] Hematocrit 41.9 40.5 - 48.5 % [facility] Mean Cell Volume 77.4(L) 82.9 - 93.1 [facility] Mean Cell Hemoglobin 24.6(L) 27.5 - 32.1 pg [facility] Mean Cell Hemoglobin Concentration 31.7(L) 32.0 - 35.7 g/dL [facility] Platelet 205 145 - 357 x10(3)/[facility] RDW Standard Deviation 41.8 36.0 - 45.0 [facility] RDW coefficient of variation 15.2(H) 11.4 - 13.8 % [facility] Mean Platelet Volume 11.2 7.6 - 12.9 [facility] NRBC% auto 0.0 % [facility] NRBC Absolute 0.000 0.000 - 0.000 x10(3)/[facility] Blood 03/02/2024 4:30 AM EDT 03/02/2024 4:36 AM EDT Narrative Resulting Agency Comment Spec In Lab Latonia Red MD HEMATOLOGY ORDERABLE S [facility] [place] [address] * (ABNORMAL) Comprehensive metabolic panel (non-fasting) (03/02/2024 4:30 AM EDT) Glucose 199 65 - 199 mg/dL [facility] Comment:Diabetes: >=200 mg/d L plus symptoms Blood Urea Nitrogen 11 10 - 20 mg/dL [facility] Creatinine 0.80 0.80 - 1.50 mg/dL [facility] Sodium 135 135 - 145 mmol/L [facility] Potassium 5.0 3.5 - 5.0 mmol/L [facility] Comment: Please note: ??Patients with WBC >100,000 may have falsely elevated Potassium levels. ??For accurate Potassium quantification in these patients send serum separator tube (gold top) for subsequent determinations. ??Contact the Clinical Chemistry Laboratory if there are any questions. Chloride 103 98 - 107 mmol/L [facility] Carbon Dioxide 24 22 - 31 mmol/L [facility] Anion Gap 8 5 - 15 mmol/L [facility] Calcium 7.9(L) 8.5 - 10.5 mg/dL [facility] Protein, Total 5.4(L) 6.1 - 8.0 g/dL [facility] Albumin 2.8(L) 3.2 - 5.2 g/dL [facility] Aspartate Aminotransferase Not Perf 0 - 39 [facility] Comment: Unable to quantitate due to sample hemolysis. ??Sample redraw suggested. Called by: mg, Read back by: Angelita Ingram, Date/Time:03/02/24 05:18. Alanine Aminotransferase 128(H) 0 - 55 unit/L [facility] Alkaline Phosphatase 97 40 - 130 unit/L [facility] Bilirubin, Total 0.9 0.2 - 1.3 mg/dL [facility] Est Glomerular Filtration Rate 108 >=60 mL/min/1. 73 m?? [facility] Comment: This patient's estimated GFR [...] [facility]/ZIP Co de Phone Number [facility] [place] [address] * POCT Glucose (03/02/2024 4:26 AM EDT) Glucose, POC 172 65 - 199 mg/dL [facility] Comment: Supplemental ranges: <140 mg/dL before meals <180 mg/dL all other times of the day Blood 03/02/2024 4:26 AM EDT 03/02/2024 4:26 AM EDT Rudi Hernandez MD POINT OF CARE TEST O RDERABLES Performing Organization Address [facility]/ZIP Co de Phone Number [facility] [place] [address] * POCT Glucose (03/02/2024 12:12 AM EDT) Glucose, POC 190 65 - 199 mg/dL [facility] Comment: Supplemental ranges: <140 mg/dL before meals <180 mg/dL all other times of the day Blood 03/02/2024 12:1 2 AM EDT 03/02/2024 12:12 AM EDT Rudi Hernandez MD POINT OF CARE TEST O RDERAVANNESSA Performing Organization Address [facility] Co de Phone Number [facility] [place] [address] * (ABNORMAL) POCT Glucose (03/01/2024 7:55 PM EDT) [facility] Glucose, POC 233(H) 65 - 199 mg/dL [facility] Comment: Supplemental ranges: <140 mg/dL before meals <180 mg/dL all other times of the day Blood 03/01/2024 7:55 PM EDT 03/01/2024 7:55 PM EDT Rudi Hernandez MD POINT OF CARE TEST O ELKIN Performing Organization Address [facility] Co de Phone Number [facility] [place] [address] * (ABNORMAL) Differential, Automated (03/01/2024 7:02 PM EDT) [facility] Neutrophil % 91.5 % [facility] Neutrophil Absolute 14.04(H) 1.70 - 6.10 x10(3)/mc L [facility] Lymph % 3.7 % [facility] Lymphocytes Abs 0.6(L) 0.9 - 3.2 x10(3)/mc L [facility] Monocyte % 4.2 % [facility] Monocyte Abs 0.6 0.3 - 0.9 x10(3)/mc L [facility] Eos % 0.0 % [facility] Eosinophils Abs 0.0 0.0 - 0.4 x10(3)/mc L [facility] Basophil % 0.1 % [facility] Baso Absolute 0.0 0.0 - 0.1 x10(3)/ L [facility] Immature Gran % 0.50 % [facility] Comment: Immature granulocytes(IG's)percentage and absolute count will include metamyelocytes, myelocytes, and promyelocytes. Blood smears from CBCs yielding IG's will be scanned manually for concordance. If this scan disagrees with the automated IG or if promyelocytes are noted, a manual differential will be performed. Immature Gran Absolute 0.07(H) 0.00 - 0.04 x10(3)/ L [facility] Blood 03/01/2024 7:02 PM EDT 03/01/2024 7:06 PM EDT Narrative Resulting Agency Comment Spec In Lab Latonia Red MD HEMATOLOGY ORDERABLE S Performing Organization Address City/State/[facility] Co de Phone Number [facility] [place] [address] * (ABNORMAL) Hemogram (03/01/2024 7:02 PM EDT) White Blood Cell 15.3(H) 4.0 - 9.5 x10(3)/[facility] Red Blood Cell 5.64(H) 4.58 - 5.54 x10(6)/ L [facility] Hemoglobin 14.1 13.7 - 16.5 g/dL [facility] Hematocrit 43.4 40.5 - 48.5 % [facility] Mean Cell Volume 77.0(L) 82.9 - 93.1 fL [facility] Mean Cell Hemoglobin 25.0(L) 27.5 - 32.1 pg [facility] Mean Cell Hemoglobin Concentration 32.5 32.0 - 35.7 g/dL [facility] Platelet 218 145 - 357 x10(3)/[facility] RDW Standard Deviation 41.1 36.0 - 45.0 fL [facility] RDW coefficient of variation 14.8(H) 11.4 - 13.8 % [facility] Mean Platelet Volume 10.5 7.6 - 12.9 fL [facility] NRBC% auto 0.0 % [facility] NRBC Absolute 0.000 0.000 - 0.000 x10(3)/mc L [facility] Blood 03/01/2024 7:02 PM EDT 03/01/2024 7:06 PM EDT Narrative Resulting Agency Comment Spec In Lab Latonia Red MD HEMATOLOGY ORDERABLE S [facility] [place] [address] * (ABNORMAL) Comprehensive metabolic panel (non-fasting) (03/01/2024 7:02 PM EDT) Glucose 216(H) 65 - 199 mg/dL [facility] Comment:Diabetes: >=200 mg/d L plus symptoms Blood Urea Nitrogen 9(L) 10 - 20 mg/dL [facility] Creatinine 0.80 0.80 - 1.50 mg/dL [facility] Sodium 135 135 - 145 mmol/L [facility] Potassium 4.9 3.5 - 5.0 mmol/L [facility] Comment: Please note: ??Patients with WBC >100,000 may have falsely elevated Potassium levels. ??For accurate Potassium quantification in these patients send serum separator tube (gold top) for subsequent determinations. ??Contact the Clinical Chemistry Laboratory if there are any questions. Chloride 103 98 - 107 mmol/L [facility] Carbon Dioxide 22 22 - 31 mmol/L [facility] Anion Gap 10 5 - 15 mmol/L [facility] Calcium 8.2(L) 8.5 - 10.5 mg/dL [facility] Protein, Total 5.7(L) 6.1 - 8.0 g/dL [facility] Albumin 3.3 3.2 - 5.2 g/dL [facility] Aspartate Aminotransferase 182(H) 0 - 39 unit/L [facility] Alanine Aminotransferase 148(H) 0 - 55 unit/L [facility] Alkaline Phosphatase 106 40 - 130 unit/L [facility] Bilirubin, Total 2.2(H) 0.2 - 1.3 mg/dL [facility] Est Glomerular Filtration Rate 108 >=60 mL/min/1. 73 m?? [facility] Comment: This patient's estimated GFR [...] [facility]/ZIP Co de Phone Number [facility] [place] [address] * POCT Glucose (03/01/2024 6:44 PM EDT) Glucose, POC 156 65 - 199 mg/dL [facility] Comment: Supplemental ranges: <140 mg/dL before meals <180 mg/dL all other times of the day Blood 03/01/2024 6:44 PM EDT 03/01/2024 6:44 PM EDT Rudi Hernandez MD POINT OF CARE TEST O RDERABLES Performing Organization Address City/[facility]/ZIP Co de Phone Number [facility] [place] [address] * (ABNORMAL) BLOOD GAS 2 ARTERIAL (03/01/2024 5:49 PM EDT) pH, Arterial 7.40 7.35 - 7.45 [facility] PCO2, Arterial 35 35 - 45 mmHg [facility] PO2, Arterial 188(H) 85 - 104 mmHg [facility] Bicarbonate, Arterial 21.3 20.0 - 26.0 mmol/L [facility] Base Excess, Arterial -3.6(L) -3.0 - 3.0 mmol/L [facility] Hgb Blood Gas 14.6 13.7 - 16.5 g/dL [facility] Oxyhemoglobin, Arterial 97.8(H) 94.0 - 97.0 % [facility] Carboxyhemoglob in, Arterial 1.3 % [facility] Comment: Nonsmokers: 0.5-1.5% COHB Smokers: Variable, but usually less than 10% Toxic: 20-30% COHB Lethal: Greater than 60% COHB Methemoglobin, Arterial 0.3 <=1.5 % [facility] Na Whole Blood 131(L) 135 - 145 mmol/L [facility] K Whole Blood 4.3 3.5 - 5.0 mmol/L [facility] Comment: Please note: Patients with WBC >100,000 may have falsely elevated Potassium levels. Contact the Clinical Chemistry Laboratory if there are any questions. ICa Whole Blood 1.12(L) 1.15 - 1.33 mmol/L [facility] Comment: Note: ??Total bilirubin higher than 20 mg/dL may lead to falsely low ionized calcium. CL Whole Blood 102 98 - 107 mmol/L [facility] Gluc Whole Bld 162 65 - 199 mg/dL [facility] Comment:Diabetes: >=200 mg/d L plus symptoms. Lactate WB 2.2 0.5 - 2.2 mmol/L [facility] Blood 03/01/2024 5:49 PM EDT 03/01/2024 5:49 PM EDT Rudi Hernandez MD POINT OF CARE TEST O RDERABLES Performing Organization Address City/[facility]/ZIP Co de Phone Number [facility] [place] [address] * POCT Glucose (03/01/2024 5:02 PM EDT) Glucose, POC 125 65 - 199 mg/dL [facility] Comment: Supplemental ranges: <140 mg/dL before meals <180 mg/dL all other times of the day Blood 03/01/2024 5:02 PM EDT 03/01/2024 5:02 PM EDT Rudi Hernandez MD POINT OF CARE TEST O ELKIN Performing Organization Address [facility] Co de Phone Number [facility] [place] [address] * POCT Glucose (03/01/2024 4:07 PM EDT) Glucose, POC 125 65 - 199 mg/dL [facility] Comment: Supplemental ranges: <140 mg/dL before meals <180 mg/dL all other times of the day Blood 03/01/2024 4:07 PM EDT 03/01/2024 4:07 PM EDT Rudi Hernandez MD POINT OF CARE TEST O ELKIN Performing Organization Address [facility]/ZIP Co de Phone Number [facility] [place] [address] * Specimen to Pathology (03/01/2024 3:40 PM EDT) AP Specimen 03/01/2024 3:40 PM EDT 03/01/2024 3:40 PM EDT Narrative [facility] - 03/01/2024 3:40 PM EDT Specimen requisition ordered. ??Separate Pathology report to follow Rudi Henrandez MD PATHOLOGY/CYTOLOGY O ELKIN [facility] [place] [address] * POCT Glucose (03/01/2024 2:58 PM EDT) Glucose, POC 150 65 - 199 mg/dL [facility] Comment: Supplemental ranges: <140 mg/dL before meals <180 mg/dL all other times of the day Blood 03/01/2024 2:58 PM EDT 03/01/2024 2:58 PM EDT Rudi Hernandez MD POINT OF CARE TEST O RDERABLES [facility] [place] [address] * (ABNORMAL) BLOOD GAS 2 ARTERIAL (03/01/2024 2:58 PM EDT) [facility] pH, Arterial 7.41 7.35 - 7.45 [facility] PCO2, Arterial 39 35 - 45 mmHg [facility] PO2, Arterial 204(H) 85 - 104 mmHg [facility] Bicarbonate, Arterial 23.9 20.0 - 26.0 mmol/L [facility] Base Excess, Arterial -0.8 -3.0 - 3.0 mmol/L [facility] Hgb Blood Gas 14.5 13.7 - 16.5 g/dL [facility] Oxyhemoglobin, Arterial 98.0(H) 94.0 - 97.0 % [facility] Carboxyhemoglob in, Arterial 1.2 % [facility] Comment: Nonsmokers: 0.5-1.5% COHB Smokers: Variable, but usually less than 10% Toxic: 20-30% COHB Lethal: Greater than 60% COHB Methemoglobin, Arterial 0.3 <=1.5 % [facility] Na Whole Blood 135 135 - 145 mmol/L [facility] K Whole Blood 4.0 3.5 - 5.0 mmol/L [facility] Comment: Please note: Patients with WBC >100,000 may have falsely elevated Potassium levels. Contact the Clinical Chemistry Laboratory if there are any questions. ICa Whole Blood 1.10(L) 1.15 - 1.33 mmol/L [facility] Comment: Note: ??Total bilirubin higher than 20 mg/dL may lead to falsely low ionized calcium. CL Whole Blood 104 98 - 107 mmol/L [facility] Gluc Whole Bld 175 65 - 199 mg/dL [facility] Comment:Diabetes: >=200 mg/d L plus symptoms. Lactate WB 2.1 0.5 - 2.2 mmol/L [facility] Blood 03/01/2024 2:58 PM EDT 03/01/2024 2:58 PM EDT Rudi Hernandez MD POINT OF CARE TEST O ELKIN Performing Organization Address [facility] Co de Phone Number [facility] [place] [address] * POCT Glucose (03/01/2024 2:02 PM EDT) Glucose, POC 147 65 - 199 mg/dL [facility] Comment: Supplemental ranges: <140 mg/dL before meals <180 mg/dL all other times of the day Blood 03/01/2024 2:02 PM EDT 03/01/2024 2:02 PM EDT Rudi Hernandez MD POINT OF CARE TEST O ELKIN [facility] [place] [address] * POCT Glucose (03/01/2024 1:00 PM EDT) Glucose, POC 138 65 - 199 mg/dL [facility] Comment: Supplemental ranges: <140 mg/dL before meals <180 mg/dL all other times of the day Blood 03/01/2024 1:00 PM EDT 03/01/2024 1:00 PM EDT Rudi Hernandez MD POINT OF CARE TEST O RDERABLES Performing Organization Address [facility]/[place] [address] * Anaerobic Culture (03/01/2024 1:00 PM EDT) Anaerobic Culture No anaerobic organisms isolated [facility] Fluid 03/01/2024 1:00 PM EDT 03/01/2024 4:19 PM EDT Comment:Bile duct culture Narrative Resulting Agency Comment Spec In Lab Rudi Hernandez MD MICROBIOLOGY - GENER AL ORDERABLES Performing Organization Address [facility] [place] [address] * Body Fluid Culture, Aerobic (03/01/2024 1:00 PM EDT) Body Fluid Culture No growth [facility] Gram Stain Cytocentrifuge Gram Stain performed No Neutrophils seen. No microorganisms seen. [facility] Fluid 03/01/2024 1:00 PM EDT 03/01/2024 4:19 PM EDT Comment:Bile duct culture Narrative Resulting Agency Comment Spec In Lab Rudi Hernandez MD MICROBIOLOGY - GENER AL ORDERABLES Performing Organization Address [facility] Co de Phone Number [facility] [place] [address] * Specimen to Pathology (03/01/2024 12:50 PM EDT) AP Specimen 03/01/2024 12:5 0 PM EDT 03/01/2024 12:50 PM EDT Narrative [facility] - 03/01/2024 12:50 PM EDT Specimen requisition ordered. ??Separate Pathology report to follow Rudi Hernandez MD PATHOLOGY/CYTOLOGY O RDERABLES Performing Organization Address City/[facility]/ZIP Co de [place] [address] * POCT Glucose (03/01/2024 12:01 PM EDT) Glucose, POC 153 65 - 199 mg/dL [facility] Comment: Supplemental ranges: <140 mg/dL before meals <180 mg/dL all other times of the day Blood 03/01/2024 12:0 1 PM EDT 03/01/2024 12:01 PM EDT Rudi Hernandez MD POINT OF CARE TEST O ELKIN [facility] [place] [address] * Specimen to Pathology (03/01/2024 11:07 AM EDT) AP Specimen 03/01/2024 11:0 7 AM EDT 03/01/2024 11:07 AM EDT Narrative [facility] - 03/01/2024 11:07 AM EDT Specimen requisition ordered. ??Separate Pathology report to follow Rudi Hernandez MD PATHOLOGY/CYTOLOGY O ELKIN [facility] [place] [address] * (ABNORMAL) BLOOD GAS 2 ARTERIAL (03/01/2024 10:55 AM EDT) pH, Arterial 7.43 7.35 - 7.45 [facility] PCO2, Arterial 35 35 - 45 mmHg [facility] PO2, Arterial 182(H) 85 - 104 mmHg [facility] Bicarbonate, Arterial 22.9 20.0 - 26.0 mmol/L [facility] Base Excess, Arterial -1.4 -3.0 - 3.0 mmol/L [facility] Hgb Blood Gas 14.5 13.7 - 16.5 g/dL [facility] Oxyhemoglobin, Arterial 98.4(H) 94.0 - 97.0 % [facility] Carboxyhemoglob in, Arterial 0.5 % [facility] Comment: Nonsmokers: 0.5-1.5% COHB Smokers: Variable, but usually less than 10% Toxic: 20-30% COHB Lethal: Greater than 60% COHB Methemoglobin, Arterial 0.3 <=1.5 % [facility] Na Whole Blood 135 135 - 145 mmol/L [facility] K Whole Blood 4.1 3.5 - 5.0 mmol/L [facility] Comment: Please note: Patients with WBC >100,000 may have falsely elevated Potassium levels. Contact the Clinical Chemistry Laboratory if there are any questions. ICa Whole Blood 1.12(L) 1.15 - 1.33 mmol/L [facility] Comment: Note: ??Total bilirubin higher than 20 mg/dL may lead to falsely low ionized calcium. CL Whole Blood 102 98 - 107 mmol/L [facility] Gluc Whole Bld 198 65 - 199 mg/dL [facility] Comment:Diabetes: >=200 mg/d L plus symptoms. Lactate WB 2.0 0.5 - 2.2 mmol/L [facility] Blood 03/01/2024 10:5 5 AM EDT 03/01/2024 10:55 AM EDT Rudi Hernandez MD POINT OF CARE TEST O RDERABLES Performing Organization Address City/State/[facility] Co de Phone Number [facility] [place] [address] * Surgical Pathology Report (03/01/2024 10:49 AM EDT) Final Diagnosis [id number] ? Location: [id number]; 0404; B The signing [...] Verified: ??03/10/2024 16:41 ??Pathologist Performed at: ??-[facility] Dept. of Pathology, [place] [address] Urogynaecologist: Lee Sutton MD, AP, ??CLIA Certificate: [id number] SYNOPTIC Specimen ? Procedure: ??Pancreaticoduodene ctomy (Whipple [...] Category: ??pT3 ? pN Category: ??pN1 ? [facility] 2021 Q1 Release ADDITIONAL STUDIES Whole [...] is inked red. . SPECIMEN PROCESSING Sections/Processing: Driveway Sealer sections in 41 cassettes as follows: ?B1: [...] 1.4 x 1.0 x 0.7 cm. Sections/Processing: Driveway Sealer sections to include the entire lymph node are submitted in 1 cassettes as follows: ?C1: ??Single quadrisected lymph node D - Labeled/Fixative: Common hepatic artery lymph node #2, fresh. Quantity/Size: Single, 1.2 x 1.2 x 0.7 cm. Tissue Description: Palumbo-pink lymph node with minimal attached adipose tissue Sections/Processing: Quadrisected and entirely submitted in 2 cassettes labeled D1-D2. ??jnr 03/10/2024 4:41 PM EDT [facility] LYMPH NODE SPECIMEN / Unknown 03/01/2024 10:49 AM EDT 03/01/2024 10:49 AM EDT PANCREATIC STRUCTURE / Unknown 03/01/2024 10:49 AM EDT 03/01/2024 10:49 AM EDT LYMPH NODE SPECIMEN / Unknown 03/01/2024 10:49 AM EDT 03/01/2024 10:49 AM EDT LYMPH NODE SPECIMEN / Unknown 03/01/2024 10:49 AM EDT 03/01/2024 10:49 AM EDT Rudi Hernandez MD PATHOLOGY/CYTOLOGY O RDERABLES Performing Organization Address City/[facility]/ZIP Co de Phone Number [facility] [place] [address] * Specimen to Pathology (03/01/2024 10:49 AM EDT) AP Specimen 03/01/2024 10:4 9 AM EDT 03/01/2024 10:49 AM EDT Narrative [facility] - 03/01/2024 10:49 AM EDT Specimen requisition ordered. ??Separate Pathology report to follow Rudi Hernandez MD PATHOLOGY/CYTOLOGY O RDERAVANNESSA Performing Organization Address [facility]/ZIP Co de Phone Number [facility] [place] [address] * POCT Glucose (03/01/2024 9:59 AM EDT) Glucose, POC 178 65 - 199 mg/dL [facility] Comment: Supplemental ranges: <140 mg/dL before meals <180 mg/dL all other times of the day Blood 03/01/2024 9:59 AM EDT 03/01/2024 9:59 AM EDT Rudi Hernandez MD POINT OF CARE TEST O RDERABLES Performing Organization Address City/[facility]/ZIP Co de Phone Number [facility] [place] [address] * Type and Screen Validity (03/01/2024 9:31 AM EDT) T&S only valid at [facility] Comment:This Type and Screen result is only valid at the [facility] Blood 03/01/2024 9:31 AM EDT 03/01/2024 9:31 AM EDT Narrative Resulting Agency Comment Spec In Lab Rudi Hernandez MD BLOOD BANK LAB ORDER DEDRA [facility] [place] [address] * ABORH Recheck Status (03/01/2024 9:31 AM EDT) ABORH Recheck Order Order Placed [facility] ABORH Type Recheck Completed [facility] Blood 03/01/2024 9:31 AM EDT 03/01/2024 9:31 AM EDT Narrative Resulting Agency Comment Spec In Lab Rudi Hernandez MD BLOOD BANK LAB ORDER DEDRA Performing Organization Address City/[facility]/ZIP Co de Phone Number [facility] [place] [address] * Type and screen ([facility]/CGP/FABIOLA) (03/01/2024 9:31 AM EDT) ABORH Type A POSITIVE [facility] Patient BB History Not Found [facility] Expires at [id number] on: 03/04/2024 [facility] Ab Screen Interp Negative [facility] Blood 03/01/2024 9:31 AM EDT 03/01/2024 9:31 AM EDT Narrative [facility] - 03/01/2024 9:31 AM EDT This Type and Screen result is only valid at the [facility] Hospital Resulting Agency Comment Spec In Lab Rudi Hernandez MD BLOOD BANK LAB ORDER DEDRA [facility] [place] [address] * (ABNORMAL) POCT Glucose (03/01/2024 9:14 AM EDT) Pathologist [facility] Glucose, POC 211(H) 65 - 199 mg/dL [facility] Comment: Supplemental ranges: <140 mg/dL before meals <180 mg/dL all other times of the day Blood 03/01/2024 9:14 AM EDT 03/01/2024 9:14 AM EDT Rudi Hernandez MD POINT OF CARE TEST O RDERABLES [facility] [place] [address] * (ABNORMAL) BLOOD GAS 2 ARTERIAL (03/01/2024 8:39 AM EDT) [facility] pH, Arterial 7.38 7.35 - 7.45 [facility] PCO2, Arterial 37 35 - 45 mmHg [facility] PO2, Arterial 223(H) 85 - 104 mmHg [facility] Bicarbonate, Arterial 21.8 20.0 - 26.0 mmol/L [facility] Base Excess, Arterial -3.3(L) -3.0 - 3.0 mmol/L [facility] Hgb Blood Gas 13.3(L) 13.7 - 16.5 g/dL [facility] Oxyhemoglobin, Arterial 98.4(H) 94.0 - 97.0 % [facility] Carboxyhemoglob in, Arterial 0.9 % [facility] Comment: Nonsmokers: 0.5-1.5% COHB Smokers: Variable, but usually less than 10% Toxic: 20-30% COHB Lethal: Greater than 60% COHB Methemoglobin, Arterial 0.3 <=1.5 % [facility] Na Whole Blood 131(L) 135 - 145 mmol/L [facility] K Whole Blood 3.7 3.5 - 5.0 mmol/L [facility] Comment: Please note: Patients with WBC >100,000 may have falsely elevated Potassium levels. Contact the Clinical Chemistry Laboratory if there are any questions. ICa Whole Blood 1.10(L) 1.15 - 1.33 mmol/L [facility] Comment: Note: ??Total bilirubin higher than 20 mg/dL may lead to falsely low ionized calcium. CL Whole Blood 101 98 - 107 mmol/L [facility] Gluc Whole Bld 250(H) 65 - 199 mg/dL [facility] Comment:Diabetes: >=200 mg/d L plus symptoms. Lactate WB 1.1 0.5 - 2.2 mmol/L [facility] Blood 03/01/2024 8:39 AM EDT 03/01/2024 8:39 AM EDT Rudi Hernandez MD POINT OF CARE TEST O RDERABLES [facility] [place] [phone] * XR Fluoro No Rad <1Hr - OR Use (03/01/2024 7:45 AM EDT) Narrative Dicom, Auditing User - 03/01/2024 7:45 AM EDT This exam is auto-finalizing. No interpretation was done. Shyla Bird MD IMG FLUORO BENJI IVEY * (ABNORMAL) Creatinine (03/01/2024 7:04 AM EDT) Creatinine 0.77(L) 0.80 - 1.50 mg/dL [facility] Est Glomerular Filtration Rate 110 >=60 mL/min/1. 73 m?? [facility] Comment: This patient's estimated GFR [...] Hernandez MD CHEMISTRY ORDERABLES Performing Organization Address [facility] Co de Phone Number [facility] [place] [address] * (ABNORMAL) POCT Glucose (03/01/2024 7:03 AM EDT) Glucose, POC 207(H) 65 - 199 mg/dL [facility] Comment: Supplemental ranges: <140 mg/dL before meals <180 mg/dL all other times of the day Blood 03/01/2024 7:03 AM EDT 03/01/2024 7:03 AM EDT Rudi Hernandez MD POINT OF CARE TEST O RDERABLES Performing Organization Address [facility] Co mo Phone Number [facility] [place] [address] documented in this encounter Visit Diagnoses Diagnosis [...] at 1500, Until Fri03/04/24 at 0541 New 03/03/2024 10:07 PM EDT 100 mL/hr 100 mL/hr New 03/03/2024 2:24 PM EDT 100 mL/hr 100 mL/hr dextrose 5% and sodium chloride 0.45% with potassium chloride 20 mEq infusion 50 mL/hr, Intravenous, CONTINUOUS, Starting on Fri03/04/24 at 0915, Until Fri03/05/24 at 0719 New 03/05/2024 5:11 AM EDT 50 mL/hr 50 mL /hr Rate/Dose Change 03/04/2024 9:18 AM EDT 50 mL/hr 50 mL/h r New 03/04/2024 9:02 AM EDT 100 mL/hr 100 [...] on Fri03/04/24 at 2100, Until Discontinued, Routine Given 03/07/2024 [...] HOURS SCHEDULED, 20 doses, First dose on Fri03/01/24 at 1945, Last dose on Fri03/06/24 at [...] other ordered pain medications are indicated., Routine 45 (Given - Provider: Katelynn Unger RN)1209 (Given - Provider: Dilma Dominique, GRETCHEN)1712 (Given - Provider: Dilma Dominique RN) 0000 (Given - Provider: Scotty Dela Cruz RN)0653 (Given - Provider: Scotty Dela Cruz, RN)1217 (Given - Provider: Bernadette Ford, GRETCHEN)1737 [...] Routine 2200 (Given - Provider: Scotty Dela Cruz, GRETCHEN) 2037 (Given - Provider: Nahomi Toussaint RN) [...] Bernadette Ford, RN)203 (Given - Provider: Nahomi Toussaitn, RN) 0832 (Given - Provider: Mae Velazquez RN) sodium chloride 0.9 % (flush) (BD PosiFlush Normal Saline 0.9) flush 5 mL 5 mL, Intravenous, 2 TIMES DAILY, First dose on Fri03/01/24 at 2100, Until Discontinued, Recovery (Recovery-Hospital Unit), Routine 0841 (Given - Provider: Dilma Dominique, GRETCHEN)2100 (Not Given - Provider: Scotty Dela Cruz RN - Reason: Patient/family refused) 0905 (Given - Provider: Bernadette Ford, GRETCHEN)2043 (Given - Provider: Nahomi Toussaint, GRETCHEN) 0900 (Given - Provider: Mae Velazquez, GRETCHEN) sodium chloride 0.9% 500 mL IV bolus (COMPLETED) at 500 mL/hr, Intravenous, ONCE, 1 dose, On Fri03/08/24 at 0815 0812 (New Bag - Provider: Mae Velazquez, GRETCHEN)0912 (Stopped - Provider: Mae Velazquez, RN) Continuous [...] on a programmed frequency, Recovery (Recovery-Hospital Unit) 8558 (New Bag - Provider: Scotty Dela Cruz [...] 5011 1612 (Given - Provider: Bernadette Ford, RGETCHEN) 0201 (Given - Provider: Nahomi Toussaint, GRETCHEN)0515 [...] 5012c, Routine 1036 (Given - Provider: Bernadette Ford, RN)1517 (Given - Provider: Bernadette Ford RN)1850 [...] Bernadette Ford, GRETCHEN)1436 (Given - Provider: Bernadette Ford RN)1517 (Given - Provider: Bernadette Ford RN) prochlorperazine (Compazine) (5 mg/mL) injection 10 mg 10 mg, Intravenous, EVERY 6 HOURS PRN, Starting on Fri03/06/24 at 0417, Until Fri03/08/24 at 1701, Nausea, for nausea or vomiting, Routine 0430 (Given - Provider: Katelynn Unger, GRETCHEN) 0015 (Given - Provider: Scotty Dela Cruz, GRETCHEN)1742 (Given - Provider: Bernadette Ford RN) 0706 (Given - Provider: Nahomi Toussaint, GRETCHEN) [...] Routine documented in this encounter Care Teams Tso Relationship Specialty Start Date End Date Olga Hoffman APRN [address] [place] [address] PCP - General Family Medicine 10/30/22 documented as of this encounter
--- OUTSIDE RECORDS SUMMARY | 2024-05-31 21:23 | XMS_ITS | Encounter Summary ---
Author Organization [facility] Address [facility] [place] [address] Care Team Providers Care Flight Purser Name Role Phone Olga Hoffman APRN Primary Care Provider [phone] Encounter Details Date Type Department Care Team (Late st Contact Info) Description 03/05/2024 Telephone [place] [phone] Gary Mtz PA [facility] [place] [address] Social History Tobacco Use Types Packs/Day Years Used Date Smoking Tobacco: Never Smokeless Tobacco: Never Alcohol Use Standard Drinks/Week Comments Not Currently 0 (1 standard drink = 0.6 oz pur e alcohol) [facility] Utilities Answer Date Recorded In the past 12 months has [facility] [employer], gas, oil, or water [employer] threatened to shut off services in your [...] by our endocrine colleagues to [facility] in [place], [place]. I called and confirmed that [employer] is covered with no copay. documented in this encounter Plan of Treatment Upcoming Encounters Date Type Department Care Team (Late st Contact Info) Description 06/11/2024 9:30 AM EDT Office Visit Hematology/Oncology at [address] [phone] Rodriguez Fowler MD [facility] [place] [address] [address] HEMATOLOGY AND ONCOLOGY [place], [place] [address] 06/11/2024 10:00 AM EDT Infusion Hematology Oncology at [address] [phone] 06/25/2024 9:30 AM EDT Office Visit Hematology/Oncology at [address] [phone] Rodriguez Fowler MD [facility] [address] [address] HEMATOLOGY AND ONCOLOGY [place], [place] [address] 06/25/2024 10:00 AM EDT Infusion Hematology Oncology at [address] [phone] documented as of this encounter Visit Diagnoses Not on filedocumented in this encounter Care Teams Flight Purser Relationship Specialty Start Date End Date Olga Hoffman APRN [address] [place] [address] PCP - General Family Medicine 10/30/22 documented as of this encounter
--- OUTSIDE RECORDS SUMMARY | 2024-05-31 21:23 | XMS_ITS | Encounter Summary ---
Author Organization [facility] [place] [address] Care Team Providers Care Chief Sales Officer Name Role Phone Olga Hoffman APRN Primary Care Provider [phone] Encounter Details Date Type Department Care Team (Latest Contact Info) Description 03/16/2024 Multidisciplinary Ca re Committee [place] [phone] Rudi Hernandez MD [facility] [place] [address] Social History Tobacco Use Types Packs/Day Years Used Date Smoking Tobacco: Never Smokeless Tobacco: Never Alcohol Use Standard Drinks/Week Comments Not Currently 0 (1 standard drink = 0.6 oz pur e alcohol) [facility] Utilities Answer Date Recorded In the past 12 months has [facility] [employer], gas, oil, or water [employer] threatened to shut off services in your [...] living in a mcc (including now)? No 03/02/2024 IPV Inpatient Questions [...] 9:30 AM EDT Office Visit Hematology/Oncology at [address] [phone] Rodriguez Fowler MD [facility] [place] [address] Sherry Cedillo APRN [address] [place] [address] DR HEMATOLOGY AND ONCOLOGY [place], [place] [address] 06/11/2024 10:00 AM EDT Infusion Hematology Oncology at [address] [phone] 06/25/2024 9:30 AM EDT Office Visit Hematology/Oncology at [address] [phone] Rodriguez Fowler MD [facility] [place] [address] Sherry Cedillo APRN [address] [place] [address] DR HEMATOLOGY AND ONCOLOGY [place], [place] [phone] 06/25/2024 10:00 AM EDT Infusion Hematology Oncology at [address] [phone] documented as of this encounter Visit Diagnoses Not on filedocumented in this encounter Care Teams Chief Sales Officer Relationship Specialty Start Date End Date Olga Hoffman APRN [address] [place] [address] PCP - General Family Medicine 10/30/22 documented as of this encounter
--- OUTSIDE RECORDS SUMMARY | 2024-05-31 21:23 | XMS_ITS | Encounter Summary ---
Author Organization [facility] [place] [address] Care Team Providers Care Feed Mill Tender Name Role Phone Olga Hoffman APRN Primary Care Provider [phone] Encounter Details Date Type Department Care Team (Late st Contact Info) Description 03/10/2024 Telephone [place] [phone] Rudi Hernandez MD [facility] [place] [address] Social History Tobacco Use Types Packs/Day Years Used Date Smoking Tobacco: Never Smokeless Tobacco: Never Alcohol Use Standard Drinks/Week Comments Not Currently 0 (1 standard drink = 0.6 oz pur e alcohol) [facility] Utilities Answer Date Recorded In the past 12 months has [employer], gas, oil, or water [employer] threatened to shut off services in your [...] in a half-way (including now)? No 03/02/2024 IPV Inpatient Questions [...] AM EDT Office Visit Hematology/Oncology at [address] [phone] Rodriguez Fowler MD [facility] [place] [address] [address] Ced[address] HEMATOLOGY AND ONCOLOGY [place], [place] [address] 06/11/2024 10:00 AM EDT Infusion Hematology Oncology at [address] [phone] 06/25/2024 9:30 AM EDT Office Visit Hematology/Oncology at [address] [phone] Rodriguez Fowler MD [facility] [place] [address] Sherry Cedillo [address] HEMATOLOGY AND ONCOLOGY [place], [place] [phone] 06/25/2024 10:00 AM EDT Infusion Hematology Oncology at [address] [phone] documented as of this encounter Visit Diagnoses Not on filedocumented in this encounter Care Teams Feed Mill Tender Relationship Specialty Start Date End Date Olga Hoffman APRN [address] [place], [place] [address] PCP - General Family Medicine 10/30/22 documented as of this encounter
--- OUTSIDE RECORDS SUMMARY | 2024-05-31 21:24 | XMS_ITS | Encounter Summary ---
Author Organization [facility] [place] [address] Care Team Providers Care Gill Box Tender Name Role Phone Dalton Olgaevy Bell APRN Primary Care Provider [phone] Reason for Visit * Auth/Cert (Routine) Specialty Diagnoses / Procedures Referred By Contac t Referred To Contact Diagnoses Malignant neoplasm of duodenum DUODENUM ADENCARCINOMA Procedures PRO PART REMV PANC, PROX+REMV DUOD+ANAST @DUTTON PROCEDURE (WRVU 52.84) Rudi Hernandez MD [facility] [place] [address] [facility] Referral ID Status Reason Start Date Expiration Date Visits Re quested Visits Authorized [id number] 1 1 Encounter Details Date Type Department Care Team (Late st Contact Info) Description 03/01/2024 7:30 AM EDT - 03/01/2024 4:58 PM EDT [place] [address] Rudi Hernandez MD [facility] [place] [address] @DUTTON PROCEDURE (WRU 52.84) Social History Tobacco Use Types Packs/Day Years Used Date Smoking Tobacco: Never Smokeless Tobacco: Never Alcohol Use Standard Drinks/Week Comments Not Currently 0 (1 standard drink = 0.6 oz pur e alcohol) [facility] Utilities Answer Date Recorded [...] in the past 12 m [facility], were you homeless or living in a jail (including now)? No 03/02/2024 DH IPV Inpatient [...] stage 3, GFR 30-59 ml/min Obesity HPI: Charlse Nick is a 48 y.o. male with PMH of hypertension, chronic kidney disease, biopsy-proven fatty liver disease, type 2 diabetes on Trulicity, and a newly diagnosed duodenal adenocarcinoma who ultimately presented to [facility] on 03/01/24 for Whipple procedure. Operations/Major Procedures: [...] Hospital Course: Charles Nick was admitted to [facility] on 03/01[facility]2024 viathe Same Day Program. [...] Fluid boluses for oliguria, Cr WNL. DM SOLE FILLER recommendedstarting Lantus 8u daily. Seen by wound [...] 1/4 Needle 1 each by [facility]Non-Drug; Combo Route) route 2 times daily. Generic drug: Insulin Many (Disposable) 1 each Quantity: 300 each Refills: [...] Center 03/17/2024 9:30 AM Silvio Gilbert MD [facility] [address] [facility] 03/17/2024 10:[address] [facility] SURG [facility] 03/24/2024 2:00 PM Rudi Hernandez MD [facility] Outpatient Services/Studies: CBC (with Diff) Standing Status: [...] the nurses in the Surgery Clinic at [phone]. - During the night time hours call the hospital handhole machine operator [phone] and ask to speak to the general surgery resident collections agent. Instructions for when you are home: Diet: Ok to eat a regular diet as tolerated. It is important to try to eat as much calories and protein as possible during recovery to aid in healing. You frequently may feel full easily or even havenausea. Take small meals at first and pace yourself. You may supplement your diet with nutritional shakes/drinks (Ensure, [place] Instant Breakfast, Boost) if possible. Enzymes: You [...] until you are seen by Dr. Delacruz [facility] surgery clinic for your first postop [...] has been scheduled with Dr. Delacruz's office [phone]. In most cases Dr. Delacruz will order blood work to be done on the day of your post op clinic appointment. This decision is made on a tiqr-eq-xxfb basis so ask if this is necessary and plan to come to [facility] pr ior to the appointment to get the blood work done in 3L as instructed. - Of course, if you are being discharged on a weekend and Dr. Delacruz's office is closed then call the office [phone] first thing Friday. Future Appointments Date Time Provider Department Center 03/17/2024 9:30 AM Silvio Gilbert MD [facility] [address] [facility] 03/17/2024 10:[address] [facility] 03/24/2024 2:00 PM Rudi Hernandez MD [facility] You have been scheduled for a follow-up with our outpatient flight hostess Donna Dewey RD to review your nutrition postoperatively - this has been coordinated to occur the same day you are here seeing plastic surgery. I reached out to your long lines operator Dr. Maxwell's office to request follow-up with [...] speak with the surgery nurses.The number is [phone]. - During the night call the [facility] handhole machine operator and ask to speak to the surgery resident collections agent for general surgery. General Instructions Diabetes Discharge [...] AM Silvio Gilbert MD Plastic Surgery at [facility] Arrive at: Cardiac Catheterization Technologist Area 4M [phone] 03/17/2024 10:[address] General Surgery at [facility] Arrive at: Cardiac Catheterization Technologist Area 4L [phone] 03/24/2024 2:00 PM Rudi Hernandez MD General Surgery at [facility] Arrive at: Cardiac Catheterization Technologist Area 4L [phone] Please dispose of unused excess opioids before your appointment or bring them with you to the appointment and we will help you dispose of them correctly. Future Orders Complete By Expires CBC (with Diff) [[id number] Custom] 03/24/2024 03/08/2025 Process Instructions: INCLUDES: WBC, RBC, Hgb, Hct, Platelets, RBC Indices and Differential Scheduling Instructions: Comments: Questions: Comprehensive metabolic panel (non-fasting) [LAB17 Custom] 03/24/2024 (Approximate) 03/08/2025 Process Instructions: INCLUDES: Calcium, T Protein, Albumin, AST, ALT, Alk Phos, T Bili, BUN, Creat, GFR, Glucose, Lytes. Scheduling Instructions: Comments: Questions: Magnesium [[id number] Custom] 03/24/2024 03/08/2025 Process Instructions: Scheduling Instructions: Comments: Questions: Phosphorus [IHS058 Custom] 03/24/2024 09/23/2024 Process Instructions: Scheduling Instructions: Comments: Questions: Discharge References/Attachments: Discharge References/Attachments None Follow-up Recommendations for Providers: Medication changes: Insulin Lantus 10 u nightly added due to whipple procedure Diet changes: No change has been made to diet CC: Olga Hoffman, HEAVY EQUIPMENT DIESEL MECHANIC [phone] Signed: Tiffanie Pabon MD Surgical Oncology Service Team Pager #[phone] 03/08/2024 1:48 PM For questions regarding this document or issues relating to this hospitalization on the Surgical Oncology Service, please contact Rudi Hernandez MD's office at [phone] documented in this encounter Discharge Instructions * [...] the nurses in the Surgery Clinic at [phone]. - During the night time hours call the hospital handhole machine operator [phone] and ask to speak to the general surgery resident collections agent. Instructions for when you are home: Diet: Ok to eat a regular diet as tolerated. It is important to try to eat as much calories and protein as possible during recovery to aid in healing. You frequently may feel full easily or even havenausea. Take small meals at first and pace yourself. You may supplement your diet with nutritional shakes/drinks (Ensure, [place] Instant Breakfast, Boost) if possible. Enzymes: You [...] until you are seen by Dr. Delacruz [facility] surgery clinic for your first postop [...] Incision: The skin incision(s) is closed with: [place] Usually the edd are removed anywhere from [...] has been scheduled with Dr. Delacruz's office [phone]. In most cases Dr. Delacruz will order blood work to be done on the day of your post op clinic appointment. This decision is made on a gsmb-al-cval basis so ask if this is necessary and plan to come to [facility] pr ior to the appointment to get the blood work done in 3L as instructed. - Of course, if you are being discharged on a weekend and Dr. Delacruz's office is closed then call the office [phone] first thing Friday. Future Appointments Date Time Provider Department Center 03/17/2024 9:30 AM Silvio Gilbert MD [facility] [address] [facility] 03/17/2024 10:[address] [facility] 03/24/2024 2:00 PM R[address]i Hernandez MD [facility] SUR[facility] You have been scheduled for a follow-up with our outpatient flight hostess Donna Dewey RD to review your nutrition postoperatively - this has been coordinated to occur the same day you are here seeing plastic surgery. I reached out to your long lines operator Dr. Maxwell's office to request follow-up with [...] speak with the surgery nurses.The number is [phone]. - During the night call the [facility] handhole machine operator and ask to speak to the surgery resident collections agent for general surgery. documented in this encounter Medications at Time of Discharge Medication Sig Dispensed Refills Start Date End Date potassium chloride ER (Klor-Con, K-Tab) 10 mEq ER tablet Take 1 tablet by mouth 2 times daily. 30 tablet 03/08/2024 Insulin Many, Disposable, (BD Ultra-Fine Micro Pen Needle) 32 gauge x 1/4 Needle 1 each by [facility]Non-Drug; Combo Route) route 2 times daily. 300 [...] at [facility] MAIN OR Social History:Home set-up: Lives with [...] for this consult. MIKI HARRELL, PT Pager: [phone] Physical Therapy Inpatient Rehabilitation Department * Diane [...] ; Age: 4 1975; 48 y.o. Room/Bed: [address] [place] [address] Today's Date: 03/07/24 ID: Charles Nick is [...] Fluid boluses for oliguria, Cr WNL. DM SOLE FILLER recommendedstarting Lantus 8u daily. Seen by wound [...] and Miralax QD, dulcolax #Post-whipple anastomotic monitoring BSAIA amylase POD1 hemolyzed, POD2 645, POD3 395 [...] Pabon MD Surgical Oncology Service Team Pager #[phone] 03/07/24 8:33 AM * Diane Sexton MD [...] ; Age: 4 1975; 48 y.o. Room/Bed: [facility]/404-B Today's Date: 03/06/24 ID: Charlse Nick is a 48 y.o. male with [...] Fluid boluses for oliguria, Cr WNL. DM SOLE FILLER recommendedstarting Lantus 8u daily. Seen by wound [...] Pabon MD Surgical Oncology Service Team Pager #[phone] 03/06/24 8:35 AM I saw, examined, and [...] insulin doses adjusted. Isidra Hickey APRN, DNP, -[facility] Inpatient Diabetes Management Team Team pager #[phone] * Gary Mtz PA - 03/05/2024 9:58 [...] Fluid boluses for oliguria, Cr WNL. DM SOLE FILLER recommendedstarting Lantus 8u daily. Seen by wound [...] Vj Joya Surgical Oncology Service Team Pager #[phone] 03/05/24 9:58 AM I saw, examined, and evaluated the patient with Vj Joya MS4. I agree with the note above andhave edited it as necessary. Agree with physical exam and assessment and plan as written above. JULIO Brugess Associated attestation - Rudi Hernandez MD - [...] Diet CC Monitoring: Q4 Kristen Meza APRN [facility] Endocrinology Diabetes Management Pager [phone] Weekends please page [phone] * Miki Harrell, PT - 03/04/2024 1:20 [...] ; Age: 4 1975; 48 y.o. Room/Bed: [address] [place] [address] Today's Date: 03/04/24 ID: Charles Nick is [...] Fluid boluses for oliguria, Cr WNL. DM SOLE FILLER recommendedstarting Lantus 8u daily. Seen by wound [...] essentially nontender, midline incision well- approximated with ded, no erythema/drainage. BASIA drain in place with [...] fatty liver disease, type 2 diabetes on [facility], and a newly diagnosed duodenal adenocarcinoma [...] JULIO Burgess Surgical Oncology Service Team Pager #[phone] 03/04/24 12:09 PM Associated attestation - Rudi [...] as a scribe for Dr. Mac Holguin. Formula Weigher Patient seen and examined on daily rounds. I agree with the above assessment and plan. 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 PLAN Lantus:8--> ADJUSTED to 10 units Lispro for correction q 4 hours based on a correction factor of 40 Diet Clear Liquid Monitoring: Q4 Discharge considerations: Open to adding back insulin at discharge CGM for discharge Kristen Meza APRN [facility] Endocrinology Diabetes Management Pager [phone] Weekends please page [phone] 35 minutes were spent over the course [...] PT to follow tomorrow. * Kristen Meza, HEAVY EQUIPMENT DIESEL MECHANIC - 03/03/2024 3:01 PM EDT Images from [...] Clear liquid Monitoring: Q4 Kristen Meza APRN [facility] Endocrinology Diabetes Management Pager [phone] Weekends please page [phone] 35 minutes were spent over the course [...] Pabon MD Surgical Oncology Service Team Pager #[phone] 03/03/24 2:06 PM * Ezio, Mac De [...] as a scribe for Dr. Mac Holguin. Formula Weigher Patient seen on daily rounds. I agree with the above assessment and plan. Fantastic analgesia with epidural. Mac Holguin MD [address] [facility] Nurse: Collin Vallecillo RN Resident:: Juan [...] Wright MD [facility] RAD Social History:Home set-up: Lives with [...] for evaluation today. Pain: well controlled with DIE OUT WORKER/epidural Vital Signs / Cardiopulmonary: SpO2: 95% on [...] for this consult. MIKI HARRELL, PT Pager: [phone] Physical Therapy Inpatient Rehabilitation Department 2017 PT [...] to LCWS for today. OOB/ambulate/PT/OT. Appreciate DM SOLE FILLER recommendations for his post-Whipple hyperglycemia in the [...] JULIO Burgess Surgical Oncology Service Team Pager #[phone] 03/02/24 3:24 PM * Violeta Manley RN - 03/02/2024 3:15 PM EDT Pt arrived to 404B around 1445. Connected to [employer], VSS on RA. NG to LCWS. LR [...] assessment and plan Mac Holguin MD [address] [facility] Nurse: Robert Pena RN Resident:: Juan Michelle [...] Kim MD 03/01/2024 Surgical Oncology, Team Pager [phone] * Roxie Rascon RN - 03/01/2024 9:10 [...] fatty liver disease, type 2 diabetes on [facility], with a newly diagnosed duodenal adenocarcinoma. [...] and Plan: 48 y.o. male presents for [place]. Latonia Red MD 03/01/24 documented in this [...] none Patient is insured through: Primary Insurance: [employer] Payor: [employer] / Plan: [facility] PPO / Product Type: *No Product type* / Secondary Insurance: N/A Prescription Coverage: Yes This plan was formulated with input from patient, and team. All are in agreement with plan. JACKIE Mcguire, dry ice machine operator of Care Management Pager [phone] * Plan of Care - Nahomi Toussaint [...] plantar dressing remains CDI, R toe wound [place] FORMER BRACE END. Midline incision with dressing on middleaspect with [...] result of 206mL. ordered a straight cath, screen writer straight cathed 300mL of urine at [...] No Patient is insured through: Primary Insurance: [employer] Payor: [facility] / Plan: [facility] PPO / Product Type: *No Product type* [...] Anticipated Date of Discharge: 03/07/2024 JACKIE Mcguire, dry ice machine operator of Care Management Pager [phone] * Plan of Care - Katelynn Unger [...] [current deficits]: unfamiliar environment, lines/tubes/drains, generalized weakness, narcotics/DIE OUT WORKER/epidural, recent surgery, bilat LE baseline numbness Assistance [...] [current deficits]: unfamiliar environment, lines/tubes/drains, generalized weakness, narcotics/DIE OUT WORKER/epidural, recent surgery, bilat LE baseline numbness Assistance [...] management and to provide a review of petroleum terminal plant operator diabetes care. Diabetes History: Charles Nick has had diabetes since . Part of this hx was gleaned from Dr Dawson evaluation in 2020 upon referral from [facility]. He was seen briefly in the PACU. [...] found for: HA1C ordered and pending FROM [employer] ([employer] in 2020) has Ha1C screen shots which [...] [facility]-was referred to dr dawson from [place] . 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 (Only good for 180 days) Any patient receiving care in [place] must abide by [place] law. The hierarchy for surrogate decision making [...] (i) The agent with financial power of business attorney or a conservator appointed in accordance [...] homeless or living in a jail (including now)?: No In the past 12 months has the [employer] gas, oil, or water [employer] threatened to shut off services in your [...] Current DME: none Home Address confirmed as: [address] [place] [id number] Social & Family Supports: All names listed below confirmed with patient as current and correct Extended Emergency Contact Information Primary Emergency Contact: JENELLE SOUZA Address: [address] [place] [address] [facility] Relation: Life Partner Current [...] Specific Information: none Health/Prescription Coverage: Primary Insurance: [facility] Payor: [facility] / Plan: [facility] PPO / Product Type: *No Product type* / Secondary Insurance: N/A ; Prescription Coverage: Yes Preferred Pharmacy: [facility] [address] [address] [facility] - [place], [place] - [address] [place] [id number] Status: Patient is a : No Primary Care Provider confirmed: Olga Hoffman, HEAVY EQUIPMENT DIESEL MECHANIC [phone] Patient/Caregiver Goals of Treatment: Return home with [...] coordination of care as indicated. JACKIE Mcguire, dry ice machine operator of Care Management Pager [phone] * Consult Note - Francine Martinez RN [...] Cover with a Mepilex border. ([employer] PS# [id number]) Right hallux underside: leave the blister open to air Wound Care Team will follow next week. Discussed plan with: PA: Gary Mtz, secure chat Please contact Francine Martinez RN on secure chat or the wound care team at [phone] or pager [phone] with skin and wound care concerns or questions. Electronically Signed By: Francine Martinez RN * Brief Op Note - Latonia Red MD - 03/01/2024 6:38 PM EDT Brief Operative Note Patient Name: Charles Nick : [id number] MR#: [id number] Case Date: 03/01/2024 Surgeon: Surgeons and Role: [...] Biospecimen to store? No SPECIMEN TO PATHOLOGY [place]: Yellow- pancreatic neck margin, Blue paint- vascular groove, [place]- SMA, Green- bile duct margin DUODENUM ADENCARCINOMA [...] Hernandez MD - 03/01/2024 8:[address] [facility] Operative Note Patient Name: Charles Nick : [id number] MR#: [id number] Case Date: 03/01/2024 Surgeon: Surgeons and Role: [...] Biospecimen to store? No SPECIMEN TO PATHOLOGY [place]: Yellow- pancreatic neck margin, Blue paint- vascular groove, [place]- SMA, Green- bile duct margin DUODENUM ADENCARCINOMA [...] fatty liver disease, type 2 diabetes on [facility], with a newly diagnosed duodenal adenocarcinoma. [...] under the neck and guided 1/4 inch [place] over the Parul clamp. Umbilical tape was [...] was not able to place the 8 [place] [employer] feeding tube into the duct, thus I used a 5 [place] feeding tube which passed easily. I placed [...] used to createthe PJ anastomosis, the 5 [place] feeding tube was cut to 8 cm [...] were placed with 3-0 silk. A 19 [place] drain was brought into the right abdomen [...] AM EDT Office Visit Hematology/Oncology at [address] [phone] Rodriguez Fowler MD [facility] [place] [address] Sherry Cedillo APRN [address] [place] [address] DR HEMATOLOGY AND ONCOLOGY [place], [place] [phone] 06/11/2024 10:00 AM EDT Infusion Hematology Oncology at [address] [phone] 06/25/2024 9:30 AM EDT Office Visit Hematology/Oncology at [address] [phone] Rodriguez Fowler MD [facility] [place] [address] Sherry Cedillo APRN [address] [place] [address] DR HEMATOLOGY AND ONCOLOGY [place], [place] [phone] 06/25/2024 10:00 AM EDT Infusion Hematology Oncology at [address] [phone] documented as of this encounter Procedures Procedure [...] 7:45 AM EDT Transfer Skin Pedicle Flap ([id number]) 03/01/2024 7:42 AM EDT DUODENUM ADENCARCINOMA Part Remv Panc, Prox+Remv Duod+Anast ([id number]) 03/01/2024 7:42 AM EDT 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/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 03/01/2024 7:03 AM EDT documented in this encounter Results * Phosphorus (04/20/2024 12:39 PM EDT) Pathologist [facility] Phosphorus 3.1 2.5 - 4.5 mg/dL 04/20/2024 1:28 PM EDT [facility] Blood VENOUS BLOOD SPECIMEN / Unknown Venipuncture / Unknown 04/20/2024 12:39 PM EDT 04/20/2024 12:39 PM EDT Rudi Hernandez MD CHEMISTRY ORDERABLES [facility] [place] [address] * Magnesium (04/20/2024 12:39 PM EDT) [facility] Magnesium 0.74 0.69 - 1.07 mMol/L 04/20/2024 1:28 PM EDT [facility] Blood VENOUS BLOOD SPECIMEN / Unknown Venipuncture / Unknown 04/20/2024 12:39 PM EDT 04/20/2024 12:39 PM EDT Rudi Hernandez MD CHEMISTRY ORDERABLES [facility] [place] [address] * (ABNORMAL) Comprehensive metabolic panel (04/20/2024 12:39 PM EDT) Pathologist [facility] Glucose 204(H) 65 - 199 mg/dL 04/20/2024 [...] 135 - 145 mMol/L 04/20/2024 1:28 PM [facility] Potassium 4.1 3.5 - 5.0 mMol/L 04/20/2024 1:28 PM [facility] Chloride 104 98 - 107 mMol/L 04/20/2024 1:28 PM [facility] Carbon Dioxide 27 22 - 31 mMol/L 04/20/2024 1:28 PM [facility] Anion Gap 10 5 - 15 mMol/L 04/20/2024 1:28 PM [facility] Calcium 9.2 8.5 - 10.5 mg/dL 04/20/2024 1:28 PM [facility] Protein, Total 6.5 6.1 - 8.0 g/dL 04/20/2024 1:28 PM [facility] Albumin 3.5 3.2 - 5.2 g/dL 04/20/2024 1:28 PM [facility] Aspartate Aminotransferase 15 <=39 unit/L 04/20/2024 1:28 PM [facility] Alanine Aminotransferase 14 0 - 55 unit/L 04/20/2024 1:28 PM [facility] Alkaline Phosphatase 71 40 - 130 unit/L 04/20/2024 1:28 PM [facility] Bilirubin, Total 0.3 <=1.3 mg/dL 04/20/2024 1:28 PM [facility] Est Glomerular Filtration Rate - Male 108 mL/min/1. 73 m?? 04/20/2024 1:28 PM [facility] Comment: This patient's estimated GFR [...] Fasting Status No 04/20/2024 1:28 PM EDT [facility] Blood VENOUS BLOOD SPECIMEN / Unknown Venipuncture / Unknown 04/20/2024 12:39 PM EDT 04/20/2024 12:39 PM EDT Rudi Hernandez MD CHEMISTRY ORDERABLES [facility] [place] [address] * (ABNORMAL) CBC (with Diff) (04/20/2024 12:39 PM EDT) White Blood Cell 7.18 x10(3)/mc L 04/20/2024 12:49 PM EDT [facility] Red Blood Cell 5.26 4.58 - 5.54 x10(6)/mc L 04/20/2024 12:49 PM EDT [facility] Hemoglobin 12.6(L) 13.7 - 16.5 g/dL 04/20/2024 12:49 PM T [facility] Hematocrit 40.5 40.5 [...] 7.6 - 12.9 fL 04/20/2024 12:49 PM [facility] RDW Standard Deviation 48.7(H) 36.0 - 45.0 fL 04/20/2024 12:49 PM [facility] [facility] RDW coefficient of variation 17.7(H) 11.4 - 13.8 % 04/20/2024 12:49 PM [facility] NRBC% auto 0.0 % 04/20/2024 12:49 PM [facility] NRBC Absolute 0.00 0.00 - 0.00 x10(3)/mc L 04/20/2024 12:49 PM [facility] Neutrophil % 66.4 % 04/20/2024 12:49 PM [facility] Neutrophil Absolute (ANC) - Automated 4.77 1.70 - 6.10 x10(3)/mc L 04/20/2024 12:49 PM [facility] Lymph % 20.8 % 04/20/2024 12:49 PM [facility] Lymph Absolute 1.49 0.90 - 3.20 x10(3)/mc L 04/20/2024 12:49 PM [facility] Monocyte % 6.1 % 04/20/2024 12:49 PM [facility] Monocyte Absolute 0.44 0.30 - 0.90 x10(3)/mc L 04/20/2024 12:49 PM [facility] Eos % 5.3 % 04/20/2024 12:49 PM [facility] Eos Absolute 0.38 0.00 - 0.40 x10(3)/mc L 04/20/2024 12:49 PM [facility] Basophil % 0.6 % 04/20/2024 12:49 PM [facility] Baso Absolute 0.04 0.00 - 0.10 x10(3)/mc L 04/20/2024 12:49 PM [facility] Immature Gran % 0.8 % 12:49 PM EDT [facility] Immature Gran Absolute 0.06(H) 0.00 - 0.04 x10(3)/mc L 04/20/2024 12:49 PM EDT [facility] Blood VENOUS BLOOD SPECIMEN / Unknown Venipuncture / Unknown 04/20/2024 12:39 PM EDT 04/20/2024 12:39 PM EDT Rudi Hernandez MD HEMATOLOGY ORDERABLE S [facility] [place] [place] [address] * POCT Glucose (03/08/2024 11:26 AM EDT) Glucose, POC 158 65 - 199 mg/dL [facility] Comment: Supplemental ranges: <140 mg/dL before meals <180 mg/dL all other times of the day Blood 03/08/2024 11:2 6 AM EDT 03/08/2024 11:26 AM EDT Rudi Hernandez MD POINT OF CARE TEST O RDERABLES Performing Organization Address [facility]/ZIP Co de Phone Number [facility] [place] [place] [address] * POCT Glucose (03/08/2024 8:13 AM EDT) Glucose, POC 170 65 - 199 mg/dL [facility] Comment: Supplemental ranges: <140 mg/dL before meals <180 mg/dL all other times of the day Blood 03/08/2024 8:13 AM EDT 03/08/2024 8:13 AM EDT Rudi Hernandez MD POINT OF CARE TEST O RDERABLES Performing Organization Address City/[facility]/ZIP Co de Phone Number [facility] [place] [place] [address] * Scan, Peripheral Blood (03/08/2024 4:44 AM EDT) Pathologist [facility] Plat estimate Normal [facility] RBC Morphology Abnormal [facility] Hypochromia Slight [facility] Polychromasia Present >5/HPF [facility] Marcy Cells 6-10 /HPF [facility] Blood 03/08/2024 4:44 AM EDT 03/08/2024 5:05 AM EDT Narrative Resulting Agency Comment Spec In Lab Latonia Red MD HEMATOLOGY ORDERABLE S [facility] [place] [address] * (ABNORMAL) Differential, Automated (03/08/2024 4:44 AM EDT) Pathologist [facility] Neutrophil % 84.9 % [facility] Neutrophil Absolute 8.47(H) 1.70 - 6.10 x10(3)/mc L [facility] Lymph % 8.6 % [facility] Lymphocytes Abs 0.9 0.9 - 3.2 x10(3)/mc L [facility] Monocyte % 4.7 % [facility] Monocyte Abs 0.5 0.3 - 0.9 x10(3)/mc L [facility] Eos % 1.0 % [facility] Eosinophils Abs 0.1 0.0 - 0.4 x10(3)/mc L [facility] Basophil % 0.3 % [facility] Baso Absolute 0.0 0.0 - 0.1 x10(3)/mc L [facility] Immature Gran % 0.50 % [facility] Comment: Immature granulocytes(IG's)percentage and absolute count will include metamyelocytes, myelocytes, and promyelocytes. Blood smears from CBCs yielding IG's will be scanned manually for concordance. If this scan disagrees with the automated IG or if promyelocytes are noted, a manual differential will be performed. Immature Gran Absolute 0.05(H) 0.00 - 0.04 x10(3)/ L [facility] Blood 03/08/2024 4:44 AM EDT 03/08/2024 5:05 AM EDT Narrative Resulting Agency Comment Spec In Lab Latonia Red MD HEMATOLOGY ORDERABLE S [facility] [place] [address] * (ABNORMAL) Hemogram (03/08/2024 4:44 AM EDT) White Blood Cell 10.0(H) 4.0 - 9.5 x10(3)/[facility] LABORATORY Red Blood Cell 5.24 4.58 - 5.54 x10(6)/[facility] Hemoglobin 12.7(L) 13.7 - 16.5 g/dL [facility] Hematocrit 39.2(L) 40.5 - 48.5 % [facility] Mean Cell Volume 74.8(L) 82.9 - 93.1 fL [facility] Mean Cell Hemoglobin 24.2(L) 27.5 - 32.1 pg [facility] Mean Cell Hemoglobin Concentration 32.4 32.0 - 35.7 g/dL [facility] Platelet 295 145 - 357 x10(3)/[facility]ORATORY RDW Standard Deviation 40.1 36.0 - 45.0 [facility] RDW coefficient of variation 14.9(H) 11.4 - 13.8 % [facility] Mean Platelet Volume 10.1 7.6 - 12.9 [facility] NRBC% auto 0.0 % [facility] NRBC Absolute 0.000 0.000 - 0.000 x10(3)/ L [facility] Blood 03/08/2024 4:44 AM EDT 03/08/2024 5:05 AM EDT Narrative Resulting Agency Comment Spec In Lab Latonia Red MD HEMATOLOGY ORDERABLE S [facility] [place] [address] * (ABNORMAL) Comprehensive metabolic panel (non-fasting) (03/08/2024 4:44 AM EDT) Glucose 197 65 - 199 mg/dL [facility] Comment:Diabetes: >=200 mg/d L plus symptoms Blood Urea Nitrogen 3(L) 10 - 20 mg/dL [facility] Creatinine 0.57(L) 0.80 - 1.50 mg/dL [facility] Sodium 132(L) 135 - 145 mmol/L [facility] Potassium 3.2(L) 3.5 - 5.0 mmol/L [facility] Comment: Please note: ??Patients with WBC >100,000 may have falsely elevated Potassium levels. ??For accurate Potassium quantification in these patients send serum separator tube (gold top) for subsequent determinations. ??Contact the Clinical Chemistry Laboratory if there are any questions. Chloride 97(L) 98 - 107 mmol/L [facility] Carbon Dioxide 21(L) 22 - 31 mmol/L [facility] Anion Gap 14 5 - 15 mmol/L [facility] Calcium 8.8 8.5 - 10.5 mg/dL [facility] Protein, Total 6.1 6.1 - 8.0 g/dL [facility] Albumin 3.0(L) 3.2 - 5.2 g/dL [facility] Aspartate Aminotransferase 11 0 - 39 unit/L [facility] Alanine Aminotransferase 22 0 - 55 unit/L [facility] Alkaline Phosphatase 94 40 - 130 unit/L [facility] Bilirubin, Total 0.4 0.2 - 1.3 mg/dL [facility] Est Glomerular Filtration Rate 120 >=60 mL/min/1. 73 m?? [facility] [...] Hernandez MD CHEMISTRY ORDERABLES Performing Organization Address [facility] Phone Number [facility] [place] [place] [address] * POCT Glucose (03/08/2024 4:25 AM EDT) Glucose, POC 168 65 - 199 mg/dL [facility] Comment: Supplemental ranges: <140 mg/dL before meals <180 mg/dL all other times of the day Blood 03/08/2024 4:25 AM EDT 03/08/2024 4:25 AM EDT Rudi Hernandez MD POINT OF CARE TEST O RDERABLES Performing Organization Address [facility] Co de Phone Number [facility] [place] [address] * POCT Glucose (03/08/2024 12:06 AM EDT) Glucose, POC 166 65 - 199 mg/dL [facility] Comment: Supplemental ranges: <140 mg/dL before meals <180 mg/dL all other times of the day Blood 03/08/2024 12:0 6 AM EDT 03/08/2024 12:06 AM EDT Rudi Hernandez MD POINT OF CARE TEST O RDERABLES Performing Organization Address [facility]/ZIP Co de Phone Number [facility] [place] [address] * POCT Glucose (03/07/2024 8:35 PM EDT) Glucose, POC 177 65 - 199 mg/dL [facility] Comment: Supplemental ranges: <140 mg/dL before meals <180 mg/dL all other times of the day Blood 03/07/2024 8:35 PM EDT 03/07/2024 8:35 PM EDT Rudi Hernandez MD POINT OF CARE TEST O RDERAVANNESSA Performing Organization Address [facility] Co de Phone Number [facility] [place] [address] * POCT Glucose (03/07/2024 4:08 PM EDT) Glucose, POC 187 65 - 199 mg/dL [facility] Comment: Supplemental ranges: <140 mg/dL before meals <180 mg/dL all other times of the day Blood 03/07/2024 4:08 PM EDT 03/07/2024 4:08 PM EDT Rudi Hernandez MD POINT OF CARE TEST O RDERAVANNESSA Performing Organization Address [facility] Co de Phone Number [facility] [place] [address] * POCT Glucose (03/07/2024 12:20 PM EDT) Glucose, POC 183 65 - 199 mg/dL [facility] Comment: Supplemental ranges: <140 mg/dL before meals <180 mg/dL all other times of the day Blood 03/07/2024 12:2 0 PM EDT 03/07/2024 12:20 PM EDT Rudi Hernandez MD POINT OF CARE TEST O RDERABLES [facility] [place] [address] * POCT Glucose (03/07/2024 8:35 AM EDT) Pathologist [facility] Glucose, POC 155 65 - 199 mg/dL [facility] Comment: Supplemental ranges: <140 mg/dL before meals <180 mg/dL all other times of the day Blood 03/07/2024 8:35 AM EDT 03/07/2024 8:35 AM EDT Rudi Hernandez MD POINT OF CARE TEST O RDERABLES Performing Organization Address [facility] Co de Phone Number [facility] [place] [address] * (ABNORMAL) Differential, Automated (03/07/2024 4:53 AM EDT) [facility] Neutrophil % 81.0 % [facility] Neutrophil Absolute 6.52(H) 1.70 - 6.10 x10(3)/mc L [facility] Lymph % 11.1 % [facility] Lymphocytes Abs 0.9 0.9 - 3.2 x10(3)/mc L [facility] Monocyte % 5.8 % [facility] Monocyte Abs 0.5 0.3 - 0.9 x10(3)/mc L [facility] Eos % 1.1 % [facility] Eosinophils Abs 0.1 0.0 - 0.4 x10(3)/mc L [facility] Basophil % 0.5 % [facility] Baso Absolute 0.0 0.0 - 0.1 x10(3)/mc L [facility] Immature Gran % 0.50 % [facility] Comment: Immature granulocytes(IG's)percentage and absolute count will include metamyelocytes, myelocytes, and promyelocytes. Blood smears from CBCs yielding IG's will be scanned manually for concordance. If this scan disagrees with the automated IG or if promyelocytes are noted, a manual differential will be performed. Immature Gran Absolute 0.04 0.00 - 0.04 x10(3)/[facility] LABORATORY Blood 03/07/2024 4:53 AM EDT 03/07/2024 5:12 AM EDT Narrative Resulting Agency Comment Spec In Lab Latonia Red MD HEMATOLOGY ORDERABLE S [facility] [place] [address] * (ABNORMAL) Hemogram (03/07/2024 4:53 AM EDT) White Blood Cell 8.0 4.0 - 9.5 x10(3)/[facility] LABORATORY Red Blood Cell 4.89 4.58 - 5.54 x10(6)/[facility] Hemoglobin 11.9(L) 13.7 - 16.5 g/dL [facility] Hematocrit 37.5(L) 40.5 - 48.5 % [facility] Mean Cell Volume 76.7(L) 82.9 - 93.1 [facility] Mean Cell Hemoglobin 24.3(L) 27.5 - 32.1 pg [facility] Mean Cell Hemoglobin Concentration 31.7(L) 32.0 - 35.7 g/dL [facility] Platelet 230 145 - 357 x10(3)/[facility] LABORATORY RDW Standard Deviation 41.0 36.0 - 45.0 [facility] RDW coefficient of variation 14.7(H) 11.4 - 13.8 % [facility] Mean Platelet Volume 10.5 7.6 - 12.9 [facility] NRBC% auto 0.0 % [facility] NRBC Absolute 0.000 0.000 - 0.000 x10(3)/[facility] LAB[facility] Blood 03/07/2024 4:53 AM EDT 03/07/2024 5:12 AM EDT Narrative Resulting Agency Comment Spec In Lab Latonia Red MD HEMATOLOGY ORDERABLE S [facility] [place] [address] * (ABNORMAL) Comprehensive metabolic panel (non-fasting) (03/07/2024 4:53 AM EDT) Glucose 180 65 - 199 mg/dL [facility] Comment:Diabetes: >=200 mg/d L plus symptoms Blood Urea Nitrogen 5(L) 10 - 20 mg/dL [facility] Creatinine 0.67(L) 0.80 - 1.50 mg/dL [facility] Sodium 136 135 - 145 mmol/L [facility] Potassium 3.8 3.5 - 5.0 mmol/L [facility] Comment: Please note: ??Patients with WBC >100,000 may have falsely elevated Potassium levels. ??For accurate Potassium quantification in these patients send serum separator tube (gold top) for subsequent determinations. ??Contact the Clinical Chemistry Laboratory if there are any questions. Chloride 99 98 - 107 mmol/L [facility] Carbon Dioxide 25 22 - 31 mmol/L [facility] Anion Gap 12 5 - 15 mmol/L [facility] Calcium 8.4(L) 8.5 - 10.5 mg/dL [facility] Protein, Total 5.9(L) 6.1 - 8.0 g/dL [facility] Albumin 3.0(L) 3.2 - 5.2 g/dL [facility] Aspartate Aminotransferase 11 0 - 39 unit/L [facility] Alanine Aminotransferase 25 0 - 55 unit/L [facility] Alkaline Phosphatase 88 40 - 130 unit/L [facility] Bilirubin, Total 0.4 0.2 - 1.3 mg/dL [facility] Est Glomerular Filtration Rate 114 >=60 mL/min/1. 73 m?? [facility] [...] Hernandez MD CHEMISTRY ORDERABLES Performing Organization Address [facility]/ZIP Co de Phone Number [facility] [place] [address] * POCT Glucose (03/07/2024 3:25 AM EDT) Glucose, POC 169 65 - 199 mg/dL [facility] Comment: Supplemental ranges: <140 mg/dL before meals <180 mg/dL all other times of the day Blood 03/07/2024 3:25 AM EDT 03/07/2024 3:25 AM EDT Rudi Hernandez MD POINT OF CARE TEST O RDERABLES [facility] [place] [address] * POCT Glucose (03/06/2024 11:20 PM EDT) Glucose, POC 141 65 - 199 mg/dL [facility] Comment: Supplemental ranges: <140 mg/dL before meals <180 mg/dL all other times of the day Blood 03/06/2024 11:2 0 PM EDT 03/06/2024 11:20 PM EDT Rudi Hernandez MD POINT OF CARE TEST O RDERABLES Performing Organization Address [facility] Co de Phone Number [facility] [place] [address] * POCT Glucose (03/06/2024 8:39 PM EDT) Glucose, POC 152 65 - 199 mg/dL [facility] Comment: Supplemental ranges: <140 mg/dL before meals <180 mg/dL all other times of the day Blood 03/06/2024 8:39 PM EDT 03/06/2024 8:39 PM EDT Rudi Hernandez MD POINT OF CARE TEST O RDERAVANNESSA Performing Organization Address [facility] Co de Phone Number [facility] [place] [address] * POCT Glucose (03/06/2024 3:50 PM EDT) Glucose, POC 150 65 - 199 mg/dL [facility] Comment: Supplemental ranges: <140 mg/dL before meals <180 mg/dL all other times of the day Blood 03/06/2024 3:50 PM EDT 03/06/2024 3:50 PM EDT Rudi Hernandez MD POINT OF CARE TEST O RDERAVANNESSA Performing Organization Address [facility] Co de Phone Number [facility] [place] [address] * POCT Glucose (03/06/2024 11:38 AM EDT) Glucose, POC 158 65 - 199 mg/dL [facility] Comment: Supplemental ranges: <140 mg/dL before meals <180 mg/dL all other times of the day Blood 03/06/2024 11:3 8 AM EDT 03/06/2024 11:38 AM EDT Rudi Hernandez MD POINT OF CARE TEST O RDLIAT Performing Organization Address [facility] Co de Phone Number [facility] [place] [address] * POCT Glucose (03/06/2024 8:07 AM EDT) Glucose, POC 172 65 - 199 mg/dL [facility] Comment: Supplemental ranges: <140 mg/dL before meals <180 mg/dL all other times of the day Blood 03/06/2024 8:07 AM EDT 03/06/2024 8:07 AM EDT Rudi Hernandez MD POINT OF CARE TEST O RDERAVANNESSA Performing Organization Address [facility] de Phone Number [facility] [place] [address] * EKG 12 Lead (03/06/2024 6:30 AM EDT) Ventricular rate 82 BPM MUSE SYSTEM Atrial Rate 82 BPM MUSE SYSTEM P-R Interval 164 ms MUSE SYSTEM QRS Duration 100 ms MUSE SYSTEM Q-T Interval 430 ms MUSE SYSTEM QTC Calculated (Bezet) 502 ms MUSE SYSTEM Calculated P [place] 49 degrees MUSE SYSTEM Calculated R [place] 63 degrees MUSE SYSTEM Calculated T [place] 7 degrees MUSE SYSTEM INTERPRETATION Normal sinus rhythm Prolonged QT Abnormal ECG No previous ECGs available Confirmed by MD Gomes Daniel ([id number]) on 03/07/2024 3:35:02 PM MUSE SYSTEM 03/06/2024 6:30 AM EDT 03/07/2024 3:35 PM EDT Rudi Hernandez MD ECG ORDERABLES Performing Organization Address [facility] Co de Phone Number MUSE SYSTEM * XR Abdomen Flat & Upright (03/06/2024 5:29 AM EDT) WORKSTATION ID [id number] DH RAD Anatomical Region Laterality Modality Abdomen [...] who have questions please contact the health pulmonary care nurse that requested your imaging first. ? Narrative [...] patients who have questions please contactthe health pulmonary care nurse that requested your imaging first. Rudi Hernandez MD IMG DX ORDERABLES * POCT Glucose (03/06/2024 4:39 AM EDT) [facility] Glucose, POC 163 65 - 199 mg/dL [facility] Comment: Supplemental ranges: <140 mg/dL before meals <180 mg/dL all other times of the day Blood 03/06/2024 4:39 AM EDT 03/06/2024 4:39 AM EDT Rudi Hernandez MD POINT OF CARE TEST O RDERABLES Performing Organization Address City/State/[facility] Co de Phone Number [facility] [place] [address] * Differential, Automated (03/06/2024 4:09 AM EDT) [facility] Neutrophil % 73.7 % [facility] Neutrophil Absolute 5.52 1.70 - 6.10 x10(3)/[facility] LABORATORY Lymph % 16.4 % [facility] Lymphocytes Abs 1.2 0.9 - 3.2 x10(3)/[facility] LABORATORY Monocyte % 6.8 % [facility] Monocyte Abs 0.5 0.3 - 0.9 x10(3)/[facility] LABORATORY Eos % 2.3 % [facility] Eosinophils Abs 0.2 0.0 - 0.4 x10(3)/[facility] LABORATORY Basophil % 0.5 % [facility] Baso Absolute 0.0 0.0 - 0.1 x10(3)/[facility] LABORATORY Immature Gran % 0.30 % [facility] Comment: Immature granulocytes(IG's)percentage and absolute count will include metamyelocytes, myelocytes, and promyelocytes. Blood smears from CBCs yielding IG's will be scanned manually for concordance. If this scan disagrees with the automated IG or if promyelocytes are noted, a manual differential will be performed. Immature Gran Absolute 0.02 0.00 - 0.04 x10(3)/[facility] LABORATORY Blood 03/06/2024 4:09 AM EDT 03/06/2024 4:29 AM EDT Narrative Resulting Agency Comment Spec In Lab Latonia Red MD HEMATOLOGY ORDERABLE S Performing Organization Address City/State/[facility] Co de Phone Number [facility] [place] [address] * (ABNORMAL) Hemogram (03/06/2024 4:09 AM EDT) White Blood Cell 7.5 4.0 - 9.5 x10(3)/[facility] LABORATORY Red Blood Cell 4.98 4.58 - 5.54 x10(6)/[facility] LABORATORY Hemoglobin 12.1(L) 13.7 - 16.5 g/dL [facility] Hematocrit 38.4(L) 40.5 - 48.5 % [facility] Mean Cell Volume 77.1(L) 82.9 - 93.1 fL [facility] Mean Cell Hemoglobin 24.3(L) 27.5 - 32.1 pg [facility] Mean Cell Hemoglobin Concentration 31.5(L) 32.0 - 35.7 g/dL [facility] Platelet 220 145 - 357 x10(3)/[facility] LABORATORY RDW Standard Deviation 41.1 36.0 - 45.0 fL [facility] RDW coefficient of variation 14.8(H) 11.4 - 13.8 % [facility] Mean Platelet Volume 10.5 7.6 - 12.9 fL [facility] NRBC% auto 0.0 % [facility] NRBC Absolute 0.000 0.000 - 0.000 x10(3)/mc L [facility] Blood 03/06/2024 4:09 AM EDT 03/06/2024 4:29 AM EDT Narrative Resulting Agency Comment Spec In Lab Latonia Red MD HEMATOLOGY ORDERABLE S [facility] [place] [address] * (ABNORMAL) Comprehensive metabolic panel (non-fasting) (03/06/2024 4:09 AM EDT) Glucose 169 65 - 199 mg/dL [facility] Comment:Diabetes: >=200 mg/d L plus symptoms Blood Urea Nitrogen 6(L) 10 - 20 mg/dL [facility] Creatinine 0.70(L) 0.80 - 1.50 mg/dL [facility] Sodium 135 135 - 145 mmol/L [facility] Potassium 3.4(L) 3.5 - 5.0 mmol/L [facility] Comment: Please note: ??Patients with WBC >100,000 may have falsely elevated Potassium levels. ??For accurate Potassium quantification in these patients send serum separator tube (gold top) for subsequent determinations. ??Contact the Clinical Chemistry Laboratory if there are any questions. Chloride 98 98 - 107 mmol/L [facility] Carbon Dioxide 27 22 - 31 mmol/L [facility] Anion Gap 10 5 - 15 mmol/L [facility] Calcium 8.6 8.5 - 10.5 mg/dL [facility] Protein, Total 5.9(L) 6.1 - 8.0 g/dL [facility] Albumin 3.1(L) 3.2 - 5.2 g/dL [facility] Aspartate Aminotransferase 12 0 - 39 unit/L [facility] Alanine Aminotransferase 36 0 - 55 unit/L [facility] Alkaline Phosphatase 86 40 - 130 unit/L [facility] Bilirubin, Total 0.4 0.2 - 1.3 mg/dL [facility] Est Glomerular Filtration Rate 113 >=60 mL/min/1. 73 m?? [facility] [...] Hernandez MD CHEMISTRY ORDERABLES Performing Organization Address City/[facility]/ZIP Co de Phone Number [facility] [place] [address] * POCT Glucose (03/05/2024 11:13 PM EDT) Glucose, POC 151 65 - 199 mg/dL [facility] Comment: Supplemental ranges: <140 mg/dL before meals <180 mg/dL all other times of the day Blood 03/05/2024 11:1 3 PM EDT 03/05/2024 11:13 PM EDT Rudi Hernandez MD POINT OF CARE TEST O RDERABLES [facility] [place] [address] * POCT Glucose (03/05/2024 7:29 PM EDT) Glucose, POC 160 65 - 199 mg/dL [facility] Comment: Supplemental ranges: <140 mg/dL before meals <180 mg/dL all other times of the day Blood 03/05/2024 7:29 PM EDT 03/05/2024 7:29 PM EDT Rudi Hernandez MD POINT OF CARE TEST O RDERAVANENSSA Performing Organization Address City/[facility]/ZIP Co de Phone Number [facility] [place] [place] [address] * POCT Glucose (03/05/2024 4:40 PM EDT) Glucose, POC 141 65 - 199 mg/dL [facility] Comment: Supplemental ranges: <140 mg/dL before meals <180 mg/dL all other times of the day Blood 03/05/2024 4:40 PM EDT 03/05/2024 4:40 PM EDT Rudi Hernandez MD POINT OF CARE TEST O RDERAVANNESSA Performing Organization Address City/[facility]/ZIP Co de Phone Number [facility] [place] [place] [address] * Amylase Level Body Fluid BASIA Drain (03/05/2024 11:20 AM EDT) Amylase, Fluid 32 unit/L [facility] Comment: Reference intervals are unavailable for this test in body fluids. Comparison of this result with the concentration in blood, serum, or plasma is recommended. This test has not been cleared by the [place] FDA. Performance characteristics of this test for the analysis of body fluids were determined by [facility] in accordance with CLIA requirements. This laboratory is qualified under CLIA to perform high-complexity testing. Amylase BF Type BASIA Drain [facility] BASIA Drain 03/05/2024 11:2 0 AM EDT 03/05/2024 11:37 AM EDT Narrative Resulting Agency Comment Spec In Lab Rudi Hernandez MD BODY FLUIDS AND STOO LS ORDERABLES Performing Organization Address [facility] Co de Phone Number [facility] [place] [address] * POCT Glucose (03/05/2024 11:14 AM EDT) Glucose, POC 180 65 - 199 mg/dL [facility] Comment: Supplemental ranges: <140 mg/dL before meals <180 mg/dL all other times of the day Blood 03/05/2024 11:1 4 AM EDT 03/05/2024 11:14 AM EDT Rudi Hernandez MD POINT OF CARE TEST O RDERABLES Performing Organization Address [facility] Co de Phone Number [facility] [place] [place] [address] * POCT Glucose (03/05/2024 7:47 AM EDT) Glucose, POC 180 65 - 199 mg/dL [facility] Comment: Supplemental ranges: <140 mg/dL before meals <180 mg/dL all other times of the day Blood 03/05/2024 7:47 AM EDT 03/05/2024 7:47 AM EDT Rudi Hernandez MD POINT OF CARE TEST O RDERABLES Performing Organization Address [facility] Co de Phone Number [facility] [place] [address] * POCT Glucose (03/05/2024 5:14 AM EDT) Glucose, POC 173 65 - 199 mg/dL [facility] Comment: Supplemental ranges: <140 mg/dL before meals <180 mg/dL all other times of the day Blood 03/05/2024 5:14 AM EDT 03/05/2024 5:14 AM EDT Rudi Hernandez MD POINT OF CARE TEST O RDERABLES Performing Organization Address City/[facility]/[place] [address] * (ABNORMAL) Differential, Automated (03/05/2024 4:21 AM EDT) Neutrophil % 75.2 % [facility] Neutrophil Absolute 6.45(H) 1.70 - 6.10 x10(3)/mc L [facility] Lymph % 13.8 % [facility] Lymphocytes Abs 1.2 0.9 - 3.2 x10(3)/ L [facility] Monocyte % 7.7 % [facility] Monocyte Abs 0.7 0.3 - 0.9 x10(3)/mc L [facility] Eos % 2.3 % [facility] Eosinophils Abs 0.2 0.0 - 0.4 x10(3)/mc L [facility] Basophil % 0.5 % [facility] Baso Absolute 0.0 0.0 - 0.1 x10(3)/mc L [facility] Immature Gran % 0.50 % [facility] Comment: Immature granulocytes(IG's)percentage and absolute count will include metamyelocytes, myelocytes, and promyelocytes. Blood smears from CBCs yielding IG's will be scanned manually for concordance. If this scan disagrees with the automated IG or if promyelocytes are noted, a manual differential will be performed. Immature Gran Absolute 0.04 0.00 - 0.04 x10(3)/mc L [facility] Blood 03/05/2024 4:21 AM EDT 03/05/2024 4:39 AM EDT Narrative Resulting Agency Comment Spec In Lab Latonia Red MD HEMATOLOGY ORDERABLE S Performing Organization Address City/[facility]/ZIP Co de Phone Number [facility] [place] [address] * (ABNORMAL) Hemogram (03/05/2024 4:21 AM EDT) Pathologist [facility] White Blood Cell 8.6 4.0 - 9.5 x10(3)/[facility] LAB[facility]AT[facility] Red Blood Cell 4.62 4.58 - 5.54 x10(6)/[facility] Hemoglobin 11.5(L) 13.7 - 16.5 g/dL [facility] Hematocrit 36.5(L) 40.5 - 48.5 % [facility] Mean Cell Volume 79.0(L) 82.9 - 93.1 fL [facility] Mean Cell Hemoglobin 24.9(L) 27.5 - 32.1 pg [facility] Mean Cell Hemoglobin Concentration 31.5(L) 32.0 - 35.7 g/dL [facility] Platelet 165 145 - 357 x10(3)/[facility] RDW Standard Deviation 43.4 36.0 - 45.0 [facility] RDW coefficient of variation 15.1(H) 11.4 - 13.8 % [facility] Mean Platelet Volume 10.7 7.6 - 12.9 [facility] NRBC% auto 0.0 % [facility] NRBC Absolute 0.000 0.000 - 0.000 x10(3)/[facility] Blood 03/05/2024 4:21 AM EDT 03/05/2024 4:39 AM EDT Narrative Resulting Agency Comment Spec In Lab Latonia Red MD HEMATOLOGY ORDERABLE S [facility] [place] [address] * (ABNORMAL) Comprehensive metabolic panel (non-fasting) (03/05/2024 4:21 AM EDT) [facility] Glucose 182 65 - 199 mg/dL [facility] Comment:Diabetes: >=200 mg/d L plus symptoms Blood Urea Nitrogen 6(L) 10 - 20 mg/dL [facility] Creatinine 0.80 0.80 - 1.50 mg/dL [facility] Sodium 135 135 - 145 mmol/L [facility] Potassium 3.3(L) 3.5 - 5.0 mmol/L [facility] Comment: Please note: ??Patients with WBC >100,000 may have falsely elevated Potassium levels. ??For accurate Potassium quantification in these patients send serum separator tube (gold top) for subsequent determinations. ??Contact the Clinical Chemistry Laboratory if there are any questions. Chloride 100 98 - 107 mmol/L [facility] Carbon Dioxide 26 22 - 31 mmol/L [facility] Anion Gap 9 5 - 15 mmol/L [facility] Calcium 8.1(L) 8.5 - 10.5 mg/dL [facility] Protein, Total 5.6(L) 6.1 - 8.0 g/dL [facility] Albumin 2.9(L) 3.2 - 5.2 g/dL [facility] Aspartate Aminotransferase 14 0 - 39 unit/L [facility] Alanine Aminotransferase 45 0 - 55 unit/L [facility] Alkaline Phosphatase 79 40 - 130 unit/L [facility] Bilirubin, Total 0.4 0.2 - 1.3 mg/dL [facility] Est Glomerular Filtration Rate 108 >=60 mL/min/1. 73 m?? [facility] Hernandez MD CHEMISTRY ORDERABLES Performing Organization Address City/[facility]/ZIP Co de Phone Number [facility] [place] [address] * POCT Glucose (03/05/2024 12:28 AM EDT) Glucose, POC 166 65 - 199 mg/dL [facility] Comment: Supplemental ranges: <140 mg/dL before meals <180 mg/dL all other times of the day Blood 03/05/2024 12:2 8 AM EDT 03/05/2024 12:28 AM EDT Rudi Hernandez MD POINT OF CARE TEST O RDERABLES Performing Organization Address [facility]/ZIP Co de Phone Number [facility] [place] [address] * POCT Glucose (03/04/2024 8:02 PM EDT) Glucose, POC 174 65 - 199 mg/dL [facility] Comment: Supplemental ranges: <140 mg/dL before meals <180 mg/dL all other times of the day Blood 03/04/2024 8:02 PM EDT 03/04/2024 8:02 PM EDT Rudi Hernandez MD POINT OF CARE TEST O RDERABLES Performing Organization Address City/[facility]/ZIP Co de Phone Number [facility] [place] [place] [address] * POCT Glucose (03/04/2024 4:18 PM EDT) Glucose, POC 174 65 - 199 mg/dL [facility] Comment: Supplemental ranges: <140 mg/dL before meals <180 mg/dL all other times of the day Blood 03/04/2024 4:18 PM EDT 03/04/2024 4:18 PM EDT Rudi Hernandez MD POINT OF CARE TEST O RDERAVANNESSA Performing Organization Address [facility] Co de Phone Number [facility] [place] [address] * POCT Glucose (03/04/2024 11:34 AM EDT) Glucose, POC 173 65 - 199 mg/dL [facility] Comment: Supplemental ranges: <140 mg/dL before meals <180 mg/dL all other times of the day Blood 03/04/2024 11:3 4 AM EDT 03/04/2024 11:34 AM EDT Rudi Hernandez MD POINT OF CARE TEST O ARASHERAVANNESSA Performing Organization Address [facility] Co de Phone Number [facility] [place] [address] * POCT Glucose (03/04/2024 7:30 AM EDT) Glucose, POC 185 65 - 199 mg/dL [facility] Comment: Supplemental ranges: <140 mg/dL before meals <180 mg/dL all other times of the day Blood 03/04/2024 7:30 AM EDT 03/04/2024 7:30 AM EDT Rudi Hernandez MD POINT OF CARE TEST O RDERAVANNESSA Performing Organization Address [facility] Co de Phone Number [facility] [place] [address] * (ABNORMAL) Differential, Automated (03/04/2024 6:12 AM EDT) Neutrophil % 85.5 % [facility] Neutrophil Absolute 9.96(H) 1.70 - 6.10 x10(3)/mc L [facility] Lymph % 7.7 % [facility] Lymphocytes Abs 0.9 0.9 - 3.2 x10(3)/ L [facility] Monocyte % 5.3 % [facility] Monocyte Abs 0.6 0.3 - 0.9 x10(3)/[facility] LABORAT[facility] Eos % 0.7 % [facility] Eosinophils Abs 0.1 0.0 - 0.4 x10(3)/[facility] LABOR[facility] Basophil % 0.3 % [facility] Baso Absolute 0.0 0.0 - 0.1 x10(3)/[facility] Immature Gran % 0.50 % [facility] Comment: Immature granulocytes(IG's)percentage and absolute count will include metamyelocytes, myelocytes, and promyelocytes. Blood smears from CBCs yielding IG's will be scanned manually for concordance. If this scan disagrees with the automated IG or if promyelocytes are noted, a manual differential will be performed. Immature Gran Absolute 0.06(H) 0.00 - 0.04 x10(3)/[facility] LAB[facility] Blood 03/04/2024 6:12 AM EDT 03/04/2024 6:53 AM EDT Narrative Resulting Agency Comment Spec In Lab Latonia Red MD HEMATOLOGY ORDERABLE S [facility] [place] [address] * (ABNORMAL) Hemogram (03/04/2024 6:12 AM EDT) White Blood Cell 11.6(H) 4.0 - 9.5 x10(3)/[facility] LAB[facility] Red Blood Cell 4.72 4.58 - 5.54 x10(6)/[facility] Hemoglobin 11.7(L) 13.7 - 16.5 g/dL [facility] Hematocrit 37.1(L) 40.5 - 48.5 % [facility] Mean Cell Volume 78.6(L) 82.9 - 93.1 fL [facility] Mean Cell Hemoglobin 24.8(L) 27.5 - 32.1 pg [facility] Mean Cell Hemoglobin Concentration 31.5(L) 32.0 - 35.7 g/dL [facility] Platelet 165 145 - 357 x10(3)/mc L [facility] RDW Standard Deviation 44.1 36.0 - 45.0 [facility] RDW coefficient of variation 15.3(H) 11.4 - 13.8 % [facility] Mean Platelet Volume 10.7 7.6 - 12.9 [facility] NRBC% auto 0.0 % [facility] NRBC Absolute 0.000 0.000 - 0.000 x10(3)/mc L [facility] Blood 03/04/2024 6:12 AM EDT 03/04/2024 6:53 AM EDT Narrative Resulting Agency Comment Spec In Lab Latonia Red MD HEMATOLOGY ORDERABLE S [facility] [place] [address] * (ABNORMAL) Comprehensive metabolic panel (non-fasting) (03/04/2024 6:12 AM EDT) Glucose 204(H) 65 - 199 mg/dL [facility] Comment:Diabetes: >=200 mg/d L plus symptoms Blood Urea Nitrogen 8(L) 10 - 20 mg/dL [facility] Creatinine 0.76(L) 0.80 - 1.50 mg/dL [facility] Sodium 135 135 - 145 mmol/L [facility] Potassium 3.5 3.5 - 5.0 mmol/L [facility] Comment: Please note: ??Patients with WBC >100,000 may have falsely elevated Potassium levels. ??For accurate Potassium quantification in these patients send serum separator tube (gold top) for subsequent determinations. ??Contact the Clinical Chemistry Laboratory if there are any questions. Chloride 100 98 - 107 mmol/L [facility] Carbon Dioxide 25 22 - 31 mmol/L [facility] Anion Gap 10 5 - 15 mmol/L [facility] Calcium 8.3(L) 8.5 - 10.5 mg/dL [facility] Protein, Total 5.6(L) 6.1 - 8.0 g/dL [facility] Albumin 3.0(L) 3.2 - 5.2 g/dL [facility] Aspartate Aminotransferase 19 0 - 39 unit/L [facility] Alanine Aminotransferase 68(H) 0 - 55 unit/L [facility] Alkaline Phosphatase 84 40 - 130 unit/L [facility] Bilirubin, Total 0.4 0.2 - 1.3 mg/dL [facility] Est Glomerular [...] Narrative Resulting Agency Comment Spec In Lab Ruid Hernandez MD CHEMISTRY ORDERABLES [facility] [place] [address] * Amylase Level Body Fluid BASIA Drain (03/04/2024 5:30 AM EDT) Amylase, Fluid 395 unit/L [facility] Comment: Reference intervals are unavailable for this test in body fluids. Comparison of this result with the concentration in blood, serum, or plasma is recommended. This test has not been cleared by the [place] FDA. Performance characteristics of this test for the analysis of body fluids were determined by [facility] in accordance with CLIA requirements. This laboratory is qualified under CLIA to perform high-complexity testing. Amylase BF Type BASIA Drain [facility] BASIA Drain 03/04/2024 5:30 AM EDT 03/04/2024 5:41 AM EDT Narrative Resulting Agency Comment Spec In Lab Rudi Hernandez MD BODY FLUIDS AND STOO LS ORDERABLES [facility] [place] [address] * POCT Glucose (03/04/2024 5:15 AM EDT) Glucose, POC 171 65 - 199 mg/dL [facility] Comment: Supplemental ranges: <140 mg/dL before meals <180 mg/dL all other times of the day Blood 03/04/2024 5:15 AM EDT 03/04/2024 5:15 AM EDT Rudi Hernandez MD POINT OF CARE TEST O RDERABLES Performing Organization Address City/[facility]/ZIP Co de Phone Number [facility] [place] [address] * POCT Glucose (03/03/2024 11:19 PM EDT) Glucose, POC 181 65 - 199 mg/dL [facility] Comment: Supplemental ranges: <140 mg/dL before meals <180 mg/dL all other times of the day Blood 03/03/2024 11:1 9 PM EDT 03/03/2024 11:19 PM EDT Rudi Hernandez MD POINT OF CARE TEST O RDERAVANNESSA [facility] [place] [address] * POCT Glucose (03/03/2024 8:31 PM EDT) Glucose, POC 181 65 - 199 mg/dL [facility] Comment: Supplemental ranges: <140 mg/dL before meals <180 mg/dL all other times of the day Blood 03/03/2024 8:31 PM EDT 03/03/2024 8:31 PM EDT Rudi Hernandez MD POINT OF CARE TEST O RDERABLES Performing Organization Address [facility] Co de Phone Number [facility] [place] [address] * POCT Glucose (03/03/2024 3:59 PM EDT) Glucose, POC 174 65 - 199 mg/dL [facility] Comment: Supplemental ranges: <140 mg/dL before meals <180 mg/dL all other times of the day Blood 03/03/2024 3:59 PM EDT 03/03/2024 3:59 PM EDT Rdui Hernandez MD POINT OF CARE TEST O RDERABLES Performing Organization Address [facility] Co de Phone Number [facility] [place] [address] * (ABNORMAL) Basic Metabolic Panel (non-fasting) (03/03/2024 1:13 PM EDT) Glucose 175 65 - 199 mg/dL [facility] Comment:Diabetes: >=200 mg/d L plus symptoms Blood Urea Nitrogen 11 10 - 20 mg/dL [facility] Creatinine 0.79(L) 0.80 - 1.50 mg/dL [facility] Sodium 137 135 - 145 mmol/L [facility] Potassium 3.6 3.5 - 5.0 mmol/L [facility] Comment: Please note: ??Patients with WBC >100,000 may have falsely elevated Potassium levels. ??For accurate Potassium quantification in these patients send serum separator tube (gold top) for subsequent determinations. ??Contact the Clinical Chemistry Laboratory if there are any questions. Chloride 103 98 - 107 mmol/L [facility] Carbon Dioxide 25 22 - 31 mmol/L [facility] Anion Gap 9 5 - 15 mmol/L [facility] Calcium 8.2(L) 8.5 - 10.5 mg/dL [facility] Est Glomerular Filtration Rate 109 >=60 mL/min/1. 73 m?? [facility] Hernandez MD CHEMISTRY ORDERABLES Performing Organization Address City/[facility] Co de Phone Number [facility] [place] [address] * POCT Glucose (03/03/2024 12:20 PM EDT) Glucose, POC 156 65 - 199 mg/dL [facility] Comment: Supplemental ranges: <140 mg/dL before meals <180 mg/dL all other times of the day Blood 03/03/2024 12:2 0 PM EDT 03/03/2024 12:20 PM EDT Rudi Hernandez MD POINT OF CARE TEST O RDERABLES Performing Organization Address City/State/[facility] Co de Phone Number [facility] [place] [address] * Amylase Level Body Fluid (03/03/2024 11:40 AM EDT) Amylase, Fluid 645 unit/L [facility] Comment: Reference intervals are unavailable for this test in body fluids. Comparison of this result with the concentration in blood, serum, or plasma is recommended. This test has not been cleared by the [place] FDA. Performance characteristics of this test for the analysis of body fluids were determined by [facility] in accordance with CLIA requirements. This laboratory is qualified under CLIA to perform high-complexity testing. Amylase BF Type BASIA Drain [facility] BASIA Drain Other / Unknown 03/03/2024 1 1:40 AM EDT 03/03/2024 11:50 AM EDT Narrative Resulting Agency Comment Spec In Lab Latonia Red MD BODY FLUIDS AND STOO LS ORDERABLES Performing Organization Address [facility]/ZIP Co de Phone Number [facility] [place] [address] * POCT Glucose (03/03/2024 8:08 AM EDT) Glucose, POC 166 65 - 199 mg/dL [facility] Comment: Supplemental ranges: <140 mg/dL before meals <180 mg/dL all other times of the day Blood 03/03/2024 8:08 AM EDT 03/03/2024 8:08 AM EDT Rudi Hernandez MD POINT OF CARE TEST O RDERABLES Performing Organization Address City/[facility]/ZIP Co de Phone Number [facility] [place] [address] * POCT Glucose (03/03/2024 3:57 AM EDT) Glucose, POC 159 65 - 199 mg/dL [facility] Comment: Supplemental ranges: <140 mg/dL before meals <180 mg/dL all other times of the day Blood 03/03/2024 3:57 AM EDT 03/03/2024 3:57 AM EDT Rudi Hernandez MD POINT OF CARE TEST O RDERABLES Performing Organization Address City/[facility]/ZIP Co de Phone Number [facility] [place] [address] * Creatinine, urine, random (03/03/2024 1:19 AM EDT) Creatinine, Urine 288 mg/dL [facility] Urine 03/03/2024 1:19 AM EDT 03/03/2024 1:28 AM EDT Narrative Resulting Agency Comment Spec In Lab Rudi Hernandez MD URINE ORDERABLES Performing Organization Address [facility] Co de Phone Number [facility] [place] [address] * Sodium, urine, random (03/03/2024 1:19 AM EDT) Sodium, Urine <20 mmol/L [facility] Urine 03/03/2024 1:19 AM EDT 03/03/2024 1:28 AM EDT Narrative Resulting Agency Comment Spec In Lab Rudi Hernandez MD URINE ORDERABLES Performing Organization Address City/[facility]/ZIP Co de Phone Number [facility] [place] [address] * Green Tube HOLD (03/03/2024 1:04 AM EDT) Green Hold Sample in lab. [facility] Blood Venous Draw / Unknown 03/03/2024 1:04 AM EDT 03/03/2024 1:12 AM EDT Latonia Red MD CHEMISTRY ORDERABLES Performing Organization Address City/[facility]/ZIP Co de Phone Number [facility] [place] [address] * (ABNORMAL) Differential, Automated (03/03/2024 1:04 AM EDT) Pathologist [facility] Neutrophil % 85.5 % [facility] Neutrophil Absolute 13.27(H) 1.70 - 6.10 x10(3)/[facility] LABORAT[facility] Lymph % 7.5 % [facility] Lymphocytes Abs 1.2 0.9 - 3.2 x10(3)/[facility] LAB[facility] Monocyte % 6.0 % [facility] Monocyte Abs 0.9 0.3 - 0.9 x10(3)/[facility] LAB[facility] Eos % 0.2 % [facility] Eosinophils Abs 0.0 0.0 - 0.4 x10(3)/[facility] Basophil % 0.2 % [facility] Baso Absolute 0.0 0.0 - 0.1 x10(3)/[facility] Immature Gran % 0.60 % [facility] Comment: Immature granulocytes(IG's)percentage and absolute count will include metamyelocytes, myelocytes, and promyelocytes. Blood smears from CBCs yielding IG's will be scanned manually for concordance. If this scan disagrees with the automated IG or if promyelocytes are noted, a manual differential will be performed. Immature Gran Absolute 0.10(H) 0.00 - 0.04 x10(3)/[facility] LAB[facility] Blood 03/03/2024 1:04 AM EDT 03/03/2024 1:11 AM EDT Narrative Resulting Agency Comment Spec In Lab Kamryn Kim MD HEMATOLOGY ORDERA BLES [facility] [place] [address] * (ABNORMAL) Hemogram (03/03/2024 1:04 AM EDT) [facility] White Blood Cell 15.5(H) 4.0 - 9.5 x10(3)/[facility] LAB[facility] Red Blood Cell 4.81 4.58 - 5.54 x10(6)/[facility] Hemoglobin 11.7(L) 13.7 - 16.5 g/dL [facility] Hematocrit 37.2(L) 40.5 - 48.5 % [facility] Mean Cell Volume 77.3(L) 82.9 - 93.1 [facility] Mean Cell Hemoglobin 24.3(L) 27.5 - 32.1 pg [facility] Mean Cell Hemoglobin Concentration 31.5(L) 32.0 - 35.7 g/dL [facility] Platelet 169 145 - 357 x10(3)/[facility] RDW Standard Deviation 43.7 36.0 - 45.0 [facility] RDW coefficient of variation 15.5(H) 11.4 - 13.8 % [facility] Mean Platelet Volume 10.9 7.6 - 12.9 [facility] NRBC% auto 0.0 % [facility] NRBC Absolute 0.000 0.000 - 0.000 x10(3)/[facility] Blood 03/03/2024 1:04 AM EDT 03/03/2024 1:11 AM EDT Narrative Resulting Agency Comment Spec In Lab Kamryn Kim MD HEMATOLOGY ORDERA BLES [facility] [place] [address] * Lactate, whole blood, [place] [place] [place] (03/03/2024 1:04 AM EDT) Lactate WB 1.5 0.5 - 2.2 mmol/L [facility] Blood 03/03/2024 1:04 AM EDT 03/03/2024 1:11 AM EDT Narrative Resulting Agency Comment Spec In Lab Rudi Hernandez MD CHEMISTRY ORDERABLES Performing Organization Address City/[facility]/ZIP Co de Phone Number [facility] [place] [address] * (ABNORMAL) Phosphorus (03/03/2024 1:04 AM EDT) Phosphorus 2.2(L) 2.5 - 4.5 mg/dL [facility] Blood 03/03/2024 1:04 AM EDT 03/03/2024 1:11 AM EDT Narrative Resulting Agency Comment Spec In Lab Rudi Hernandez MD CHEMISTRY ORDERABLES Performing Organization Address [facility] Co de Phone Number [facility] [place] [place] [address] * Magnesium (03/03/2024 1:04 AM EDT) Magnesium 0.78 0.69 - 1.07 mmol/L [facility] Blood 03/03/2024 1:04 AM EDT 03/03/2024 1:11 AM EDT Narrative Resulting Agency Comment Spec In Lab Rudi Hernandez MD CHEMISTRY ORDERABLES Performing Organization Address City/[facility]/ZIP Co de Phone Number [facility] [place] [place] [address] * (ABNORMAL) Comprehensive metabolic panel (non-fasting) (03/03/2024 1:04 AM EDT) Glucose 192 65 - 199 mg/dL [facility] Comment:Diabetes: >=200 mg/d L plus symptoms Blood Urea Nitrogen 16 10 - 20 mg/dL [facility] Creatinine 1.16 0.80 - 1.50 mg/dL [facility] Sodium 137 135 - 145 mmol/L [facility] Potassium 3.9 3.5 - 5.0 mmol/L [facility] Comment: result rechecked-RSG Please note: ??Patients with WBC >100,000 may have falsely elevated Potassium levels. ??For accurate Potassium quantification in these patients send serum separator tube (gold top) for subsequent determinations. ??Contact the Clinical Chemistry Laboratory if there are any questions. Chloride 101 98 - 107 mmol/L [facility] Carbon Dioxide 24 22 - 31 mmol/L [facility] Anion Gap 12 5 - 15 mmol/L [facility] Calcium 8.1(L) 8.5 - 10.5 mg/dL [facility] Protein, Total 5.3(L) 6.1 - 8.0 g/dL [facility] Albumin 2.9(L) 3.2 - 5.2 g/dL [facility] Aspartate Aminotransferase 64(H) 0 - 39 unit/L [facility] Alanine Aminotransferase 111(H) 0 - 55 unit/L [facility] Alkaline Phosphatase 83 40 - 130 unit/L [facility] Bilirubin, Total 0.6 0.2 - 1.3 mg/dL [facility] Est Glomerular Filtration Rate 77 >=60 mL/min/1. 73 m?? [facility] [...] MD CHEMISTRY ORDERABLES [facility] [place] [address] * POCT Glucose (03/02/2024 10:59 PM EDT) Glucose, POC 181 65 - 199 mg/dL [facility] Comment: Supplemental ranges: <140 mg/dL before meals <180 mg/dL all other times of the day Blood 03/02/2024 10:5 9 PM EDT 03/02/2024 10:59 PM EDT Rudi Hernandez MD POINT OF CARE TEST O RDERABLES [facility] [place] [address] * XR Abdomen 1 view (Generic) (03/02/2024 9:54 PM EDT) WORKSTATION ID [id number] [facility] Anatomical Region Laterality Modality Abdomen [...] who have questions please contact the health pulmonary care nurse that requested your imaging first. ? Narrative [...] patients who have questions please contactthe health pulmonary care nurse that requested your imaging first. Rudi Hernandez MD IMG DX ORDERABLES * POCT Glucose (03/02/2024 7:41 PM EDT) [facility] Signature Glucose, POC 186 65 - 199 mg/dL [facility] Comment: Supplemental ranges: <140 mg/dL before meals <180 mg/dL all other times of the day Blood 03/02/2024 7:41 PM EDT 03/02/2024 7:41 PM EDT Rudi Hernandez MD POINT OF CARE TEST O RDERABLES [facility] [place] [place] [address] * XR Abdomen 1 view (Generic) (03/02/2024 7:38 PM EDT) WORKSTATION ID [id number] RAD Anatomical Region Laterality Modality Abdomen N/A [...] who have questions please contact the health pulmonary care nurse that requested your imaging first. ? Narrative [...] patients who have questions please contactthe health pulmonary care nurse that requested your imaging first. Rudi Hernandez MD IMG DX ORDERABLES * POCT Glucose (03/02/2024 4:00 PM EDT) Glucose, POC 179 65 - 199 mg/dL [facility] Comment: Supplemental ranges: <140 mg/dL before meals <180 mg/dL all other times of the day Blood 03/02/2024 4:00 PM EDT 03/02/2024 4:00 PM EDT Rudi Hernandez MD POINT OF CARE TEST O RDERABLES [facility] [place] [address] * POCT Glucose (03/02/2024 11:12 AM EDT) Glucose, POC 183 65 - 199 mg/dL [facility] Comment: Supplemental ranges: <140 mg/dL before meals <180 mg/dL all other times of the day Blood 03/02/2024 11:1 2 AM EDT 03/02/2024 11:12 AM EDT Rudi Hernandez MD POINT OF CARE TEST O RDERABLES Performing Organization Address [facility] Co de Phone Number [facility] [place] [address] * POCT Glucose (03/02/2024 7:48 AM EDT) Glucose, POC 170 65 - 199 mg/dL [facility] Comment: Supplemental ranges: <140 mg/dL before meals <180 mg/dL all other times of the day Blood 03/02/2024 7:48 AM EDT 03/02/2024 7:48 AM EDT Rudi Hernandez MD POINT OF CARE TEST O RDERABLES Performing Organization Address [facility] Co de Phone Number [facility] [place] [place] [address] * (ABNORMAL) Aspartate Aminotransferase (03/02/2024 5:27 AM EDT) [facility] Aspartate Aminotransferase 89(H) 0 - 39 unit/L [facility] Blood 03/02/2024 5:27 AM EDT 03/02/2024 6:06 AM EDT Narrative Resulting Agency Comment Spec In Lab Rudi Hernandez MD CHEMISTRY ORDERABLES Performing Organization Address [facility] Co de Phone Number [facility] [place] [address] * (ABNORMAL) Hemoglobin A1c (03/02/2024 4:30 AM EDT) Hemoglobin A1c 8.9(H) 4.3 - 5.6 % [facility] Comment: Reference Range: 4.3 [...] Mellitus, Diabetes Care 2013; 36: Suppl. 1, X98-20 Estimated Average Glucose 208 mg/dL [facility] Blood Venous Draw / Unknown 03/02/2024 4:30 AM EDT 03/02/2024 1:54 PM EDT Narrative Resulting Agency Comment Spec In Lab Munira Berry APRN CHEMISTRY ORDERABLES [facility] [place] [address] * (ABNORMAL) Differential, Automated (03/02/2024 4:30 AM EDT) Neutrophil % 84.4 % [facility] Neutrophil Absolute 10.79(H) 1.70 - 6.10 x10(3)/mc L [facility] Lymph % 9.7 % [facility] Lymphocytes Abs 1.2 0.9 - 3.2 x10(3)/mc L [facility] Monocyte % 5.1 % [facility] Monocyte Abs 0.6 0.3 - 0.9 x10(3)/mc L [facility] Eos % 0.1 % [facility] Eosinophils Abs 0.0 0.0 - 0.4 x10(3)/mc L [facility] Basophil % 0.2 % [facility] Baso Absolute 0.0 0.0 - 0.1 x10(3)/mc L [facility] Immature Gran % 0.50 % [facility] Comment: Immature granulocytes(IG's)percentage and absolute count will include metamyelocytes, myelocytes, and promyelocytes. Blood smears from CBCs yielding IG's will be scanned manually for concordance. If this scan disagrees with the automated IG or if promyelocytes are noted, a manual differential will be performed. Immature Gran Absolute 0.06(H) 0.00 - 0.04 x10(3)/ L [facility] Blood 03/02/2024 4:30 AM EDT 03/02/2024 4:36 AM EDT Narrative Resulting Agency Comment Spec In Lab Latonia Red MD HEMATOLOGY ORDERABLE S [facility] [place] [address] * (ABNORMAL) Hemogram (03/02/2024 4:30 AM EDT) White Blood Cell 12.8(H) 4.0 - 9.5 x10(3)/[facility] Red Blood Cell 5.41 4.58 - 5.54 x10(6)/[facility] Hemoglobin 13.3(L) 13.7 - 16.5 g/dL [facility] Hematocrit 41.9 40.5 - 48.5 % [facility] Mean Cell Volume 77.4(L) 82.9 - 93.1 fL [facility] Mean Cell Hemoglobin 24.6(L) 27.5 - 32.1 pg [facility] Mean Cell Hemoglobin Concentration 31.7(L) 32.0 - 35.7 g/dL [facility] Platelet 205 145 - 357 x10(3)/[facility] RDW Standard Deviation 41.8 36.0 - 45.0 [facility] RDW coefficient of variation 15.2(H) 11.4 - 13.8 % [facility] Mean Platelet Volume 11.2 7.6 - 12.9 [facility] NRBC% auto 0.0 % [facility] NRBC Absolute 0.000 0.000 - 0.000 x10(3)/[facility] Blood 03/02/2024 4:30 AM EDT 03/02/2024 4:36 AM EDT Narrative Resulting Agency Comment Spec In Lab Latonia Red MD HEMATOLOGY ORDERABLE S [facility] [place] [place] [address] * (ABNORMAL) Comprehensive metabolic panel (non-fasting) (03/02/2024 4:30 AM EDT) Glucose 199 65 - 199 mg/dL [facility] Comment:Diabetes: >=200 mg/d L plus symptoms Blood Urea Nitrogen 11 10 - 20 mg/dL [facility] Creatinine 0.80 0.80 - 1.50 mg/dL [facility] Sodium 135 135 - 145 mmol/L [facility] Potassium 5.0 3.5 - 5.0 mmol/L [facility] Comment: Please note: ??Patients with WBC >100,000 may have falsely elevated Potassium levels. ??For accurate Potassium quantification in these patients send serum separator tube (gold top) for subsequent determinations. ??Contact the Clinical Chemistry Laboratory if there are any questions. Chloride 103 98 - 107 mmol/L [facility] Carbon Dioxide 24 22 - 31 mmol/L [facility] Anion Gap 8 5 - 15 mmol/L [facility] Calcium 7.9(L) 8.5 - 10.5 mg/dL [facility] Protein, Total 5.4(L) 6.1 - 8.0 g/dL [facility] Albumin 2.8(L) 3.2 - 5.2 g/dL [facility] Aspartate Aminotransferase Not Perf 0 - 39 [facility] Comment: Unable to quantitate due to sample hemolysis. ??Sample redraw suggested. Called by: , Read back by: Angelita Ingram, Date/Time:03/02/24 05:18. Alanine Aminotransferase 128(H) 0 - 55 unit/L [facility] Alkaline Phosphatase 97 40 - 130 unit/L [facility] Bilirubin, Total 0.9 0.2 - 1.3 mg/dL [facility] Est Glomerular Filtration Rate 108 >=60 mL/min/1. 73 m?? [facility] [...] Hernandez MD CHEMISTRY ORDERABLES Performing Organization Address City/[facility]/ZIP Co de Phone Number [facility] [place] [address] * POCT Glucose (03/02/2024 4:26 AM EDT) Glucose, POC 172 65 - 199 mg/dL [facility] Comment: Supplemental ranges: <140 mg/dL before meals <180 mg/dL all other times of the day Blood 03/02/2024 4:26 AM EDT 03/02/2024 4:26 AM EDT Rudi Hernandez MD POINT OF CARE TEST O RDERABLES Performing Organization Address City/[facility]/ZIP Co de Phone Number [facility] [place] [address] * POCT Glucose (03/02/2024 12:12 AM EDT) Glucose, POC 190 65 - 199 mg/dL [facility] Comment: Supplemental ranges: <140 mg/dL before meals <180 mg/dL all other times of the day Blood 03/02/2024 12:1 2 AM EDT 03/02/2024 12:12 AM EDT Rudi Hernandez MD POINT OF CARE TEST O ELKIN Performing Organization Address City/[facility] Co de Phone Number [facility] [place] [address] * (ABNORMAL) POCT Glucose (03/01/2024 7:55 PM EDT) Pathologist [facility] Glucose, POC 233(H) 65 - 199 mg/dL [facility] Comment: Supplemental ranges: <140 mg/dL before meals <180 mg/dL all other times of the day Blood 03/01/2024 7:55 PM EDT 03/01/2024 7:55 PM EDT Rudi Hernandez MD POINT OF CARE TEST O EL[place]IN Performing Organization Address City/[facility] Co de Phone Number [facility] [place] [address] * (ABNORMAL) Differential, Automated (03/01/2024 7:02 PM EDT) [facility] Neutrophil % 91.5 % [facility] Neutrophil Absolute 14.04(H) 1.70 - 6.10 x10(3)/mc L [facility] Lymph % 3.7 % [facility] Lymphocytes Abs 0.6(L) 0.9 - 3.2 x10(3)/mc L [facility] Monocyte % 4.2 % [facility] Monocyte Abs 0.6 0.3 - 0.9 x10(3)/mc L [facility] Eos % 0.0 % [facility] Eosinophils Abs 0.0 0.0 - 0.4 x10(3)/mc L [facility] Basophil % 0.1 % [facility] Baso Absolute 0.0 0.0 - 0.1 x10(3)/mc L [facility] Immature Gran % 0.50 % [facility] Comment: Immature granulocytes(IG's)percentage and absolute count will include metamyelocytes, myelocytes, and promyelocytes. Blood smears from CBCs yielding IG's will be scanned manually for concordance. If this scan disagrees with the automated IG or if promyelocytes are noted, a manual differential will be performed. Immature Gran Absolute 0.07(H) 0.00 - 0.04 x10(3)/ L [facility] Blood 03/01/2024 7:02 PM EDT 03/01/2024 7:06 PM EDT Narrative Resulting Agency Comment Spec In Lab Latonia Red MD HEMATOLOGY ORDERABLE S [facility] [place] [address] * (ABNORMAL) Hemogram (03/01/2024 7:02 PM EDT) White Blood Cell 15.3(H) 4.0 - 9.5 x10(3)/ L [facility] Red Blood Cell 5.64(H) 4.58 - 5.54 x10(6)/mc L [facility] Hemoglobin 14.1 13.7 - 16.5 g/dL [facility] Hematocrit 43.4 40.5 - 48.5 % [facility] Mean Cell Volume 77.0(L) 82.9 - 93.1 fL [facility] Mean Cell Hemoglobin 25.0(L) 27.5 - 32.1 pg [facility] Mean Cell Hemoglobin Concentration 32.5 32.0 - 35.7 g/dL [facility] Platelet 218 145 - 357 x10(3)/ L [facility] RDW Standard Deviation 41.1 36.0 - 45.0 fL [facility] RDW coefficient of variation 14.8(H) 11.4 - 13.8 % [facility] Mean Platelet Volume 10.5 7.6 - 12.9 fL [facility] NRBC% auto 0.0 % [facility] NRBC Absolute 0.000 0.000 - 0.000 x10(3)/mc L [facility] Blood 03/01/2024 7:02 PM EDT 03/01/2024 7:06 PM EDT Narrative Resulting Agency Comment Spec In Lab Latonia Red MD HEMATOLOGY ORDERABLE S [facility] [place] [address] * (ABNORMAL) Comprehensive metabolic panel (non-fasting) (03/01/2024 7:02 PM EDT) Glucose 216(H) 65 - 199 mg/dL [facility] Comment:Diabetes: >=200 mg/d L plus symptoms Blood Urea Nitrogen 9(L) 10 - 20 mg/dL [facility] Creatinine 0.80 0.80 - 1.50 mg/dL [facility] Sodium 135 135 - 145 mmol/L [facility] Potassium 4.9 3.5 - 5.0 mmol/L [facility] Comment: Please note: ??Patients with WBC >100,000 may have falsely elevated Potassium levels. ??For accurate Potassium quantification in these patients send serum separator tube (gold top) for subsequent determinations. ??Contact the Clinical Chemistry Laboratory if there are any questions. Chloride 103 98 - 107 mmol/L [facility] Carbon Dioxide 22 22 - 31 mmol/L [facility] Anion Gap 10 5 - 15 mmol/L [facility] Calcium 8.2(L) 8.5 - 10.5 mg/dL [facility] Protein, Total 5.7(L) 6.1 - 8.0 g/dL [facility] Albumin 3.3 3.2 - 5.2 g/dL [facility] Aspartate Aminotransferase 182(H) 0 - 39 unit/L [facility] Alanine Aminotransferase 148(H) 0 - 55 unit/L [facility] Alkaline Phosphatase 106 40 - 130 unit/L [facility] Bilirubin, Total 2.2(H) 0.2 - 1.3 mg/dL [facility] Est Glomerular Filtration Rate 108 >=60 mL/min/1. 73 m?? [facility] [...] MD CHEMISTRY ORDERABLES [facility] [place] [address] * POCT Glucose (03/01/2024 6:44 PM EDT) Glucose, POC 156 65 - 199 mg/dL [facility] Comment: Supplemental ranges: <140 mg/dL before meals <180 mg/dL all other times of the day Blood 03/01/2024 6:44 PM EDT 03/01/2024 6:44 PM EDT Rudi Hernandez MD POINT OF CARE TEST O RDERABLES [facility] [place] [address] * (ABNORMAL) BLOOD GAS 2 ARTERIAL (03/01/2024 5:49 PM EDT) pH, Arterial 7.40 7.35 - 7.45 [facility] PCO2, Arterial 35 35 - 45 mmHg [facility] PO2, Arterial 188(H) 85 - 104 mmHg [facility] Bicarbonate, Arterial 21.3 20.0 - 26.0 mmol/L [facility] Base Excess, Arterial -3.6(L) -3.0 - 3.0 mmol/L [facility] Hgb Blood Gas 14.6 13.7 - 16.5 g/dL [facility] Oxyhemoglobin, Arterial 97.8(H) 94.0 - 97.0 % [facility] Carboxyhemoglob in, Arterial 1.3 % [facility] Comment: Nonsmokers: 0.5-1.5% COHB Smokers: Variable, but usually less than 10% Toxic: 20-30% COHB Lethal: Greater than 60% COHB Methemoglobin, Arterial 0.3 <=1.5 % [facility] Na Whole Blood 131(L) 135 - 145 mmol/L [facility] K Whole Blood 4.3 3.5 - 5.0 mmol/L [facility] Comment: Please note: Patients with WBC >100,000 may have falsely elevated Potassium levels. Contact the Clinical Chemistry Laboratory if there are any questions. ICa Whole Blood 1.12(L) 1.15 - 1.33 mmol/L [facility] Comment: Note: ??Total bilirubin higher than 20 mg/dL may lead to falsely low ionized calcium. CL Whole Blood 102 98 - 107 mmol/L [facility] Gluc Whole Bld 162 65 - 199 mg/dL [facility] Comment:Diabetes: >=200 mg/d L plus symptoms. Lactate WB 2.2 0.5 - 2.2 mmol/L [facility] Blood 03/01/2024 5:49 PM EDT 03/01/2024 5:49 PM EDT Rudi Hernandez MD POINT OF CARE TEST O RDERABLES [facility] [place] [address] * POCT Glucose (03/01/2024 5:02 PM EDT) Glucose, POC 125 65 - 199 mg/dL [facility] Comment: Supplemental ranges: <140 mg/dL before meals <180 mg/dL all other times of the day Blood 03/01/2024 5:02 PM EDT 03/01/2024 5:02 PM EDT Rudi Hernandez MD POINT OF CARE TEST O ELKIN Performing Organization Address [facility]/ZIP Co de Phone Number [facility] [place] [address] * POCT Glucose (03/01/2024 4:07 PM EDT) Glucose, POC 125 65 - 199 mg/dL [facility] Comment: Supplemental ranges: <140 mg/dL before meals <180 mg/dL all other times of the day Blood 03/01/2024 4:07 PM EDT 03/01/2024 4:07 PM EDT Rudi Hernandez MD POINT OF CARE TEST O ELKIN Performing Organization Address [facility]/ZIP Co de Phone Number [facility] [place] [place] [address] * Specimen to Pathology (03/01/2024 3:40 PM EDT) AP Specimen 03/01/2024 3:40 PM EDT 03/01/2024 3:40 PM EDT Narrative [facility] - 03/01/2024 3:40 PM EDT Specimen requisition ordered. ??Separate Pathology report to follow Rudi Hernandze MD PATHOLOGY/CYTOLOGY O RDERAVANNESSA [facility] [place] [address] * POCT Glucose (03/01/2024 2:58 PM EDT) Glucose, POC 150 65 - 199 mg/dL [facility] Comment: Supplemental ranges: <140 mg/dL before meals <180 mg/dL all other times of the day Blood 03/01/2024 2:58 PM EDT 03/01/2024 2:58 PM EDT Rudi Hernandez MD POINT OF CARE TEST O RDERABLES [facility] [place] [address] * (ABNORMAL) BLOOD GAS 2 ARTERIAL (03/01/2024 2:58 PM EDT) pH, Arterial 7.41 7.35 - 7.45 [facility] PCO2, Arterial 39 35 - 45 mmHg [facility] PO2, Arterial 204(H) 85 - 104 mmHg [facility] Bicarbonate, Arterial 23.9 20.0 - 26.0 mmol/L [facility] Base Excess, Arterial -0.8 -3.0 - 3.0 mmol/L [facility] Hgb Blood Gas 14.5 13.7 - 16.5 g/dL [facility] Oxyhemoglobin, Arterial 98.0(H) 94.0 - 97.0 % [facility] Carboxyhemoglob in, Arterial 1.2 % [facility] Comment: Nonsmokers: 0.5-1.5% COHB Smokers: Variable, but usually less than 10% Toxic: 20-30% COHB Lethal: Greater than 60% COHB Methemoglobin, Arterial 0.3 <=1.5 % [facility] Na Whole Blood 135 135 - 145 mmol/L [facility] K Whole Blood 4.0 3.5 - 5.0 mmol/L [facility] Comment: Please note: Patients with WBC >100,000 may have falsely elevated Potassium levels. Contact the Clinical Chemistry Laboratory if there are any questions. ICa Whole Blood 1.10(L) 1.15 - 1.33 mmol/L [facility] Comment: Note: ??Total bilirubin higher than 20 mg/dL may lead to falsely low ionized calcium. CL Whole Blood 104 98 - 107 mmol/L [facility] Gluc Whole Bld 175 65 - 199 mg/dL [facility] Comment:Diabetes: >=200 mg/d L plus symptoms. Lactate WB 2.1 0.5 - 2.2 mmol/L [facility] Blood 03/01/2024 2:58 PM EDT 03/01/2024 2:58 PM EDT Rudi Hernandez MD POINT OF CARE TEST O ELKIN Performing Organization Address [facility] Co de Phone Number [facility] [place] [address] * POCT Glucose (03/01/2024 2:02 PM EDT) Glucose, POC 147 65 - 199 mg/dL [facility] Comment: Supplemental ranges: <140 mg/dL before meals <180 mg/dL all other times of the day Blood 03/01/2024 2:02 PM EDT 03/01/2024 2:02 PM EDT Rudi Hernandez MD POINT OF CARE TEST O ELK[place] Performing Organization Address [facility]/ZIP Co de Phone Number [facility] [place] [place] [address] * POCT Glucose (03/01/2024 1:00 PM EDT) Glucose, POC 138 65 - 199 mg/dL [facility] Comment: Supplemental ranges: <140 mg/dL before meals <180 mg/dL all other times of the day Blood 03/01/2024 1:00 PM EDT 03/01/2024 1:00 PM EDT Rudi Hernandez MD POINT OF CARE TEST O RDERABLES Performing Organization Address City/[facility]/ZIP Co de Phone Number [facility] [place] [place] [address] * Anaerobic Culture (03/01/2024 1:00 PM EDT) Anaerobic Culture No anaerobic organisms isolated [facility] Fluid 03/01/2024 1:00 PM EDT 03/01/2024 4:19 PM EDT Comment:Bile duct culture Narrative Resulting Agency Comment Spec In Lab Rudi Hernandez MD MICROBIOLOGY - GENER AL ORDERABLES Performing Organization Address [facility]/ZIP Co de Phone Number [facility] [place] [place] [address] * Body Fluid Culture, Aerobic (03/01/2024 1:00 PM EDT) Body Fluid Culture No growth [facility] Gram Stain Cytocentrifuge Gram Stain performed No Neutrophils seen. No microorganisms seen. [facility] Fluid 03/01/2024 1:00 PM EDT 03/01/2024 4:19 PM EDT Comment:Bile duct culture Narrative Resulting Agency Comment Spec In Lab Rudi Hernandez MD MICROBIOLOGY - GENER AL ORDERABLES Performing Organization Address [facility]/ZIP Co de Phone Number [facility] [place] [place] [address] * Specimen to Pathology (03/01/2024 12:50 PM EDT) AP Specimen 03/01/2024 12:5 0 PM EDT 03/01/2024 12:50 PM EDT Narrative [facility] - 03/01/2024 12:50 PM EDT Specimen requisition ordered. ??Separate Pathology report to follow Rudi Hernandez MD PATHOLOGY/CYTOLOGY O RDERABLES Performing Organization Address City/[facility]/ZIP Co de Phone Number [facility] [place] [address] * POCT Glucose (03/01/2024 12:01 PM EDT) Glucose, POC 153 65 - 199 mg/dL [facility] Comment: Supplemental ranges: <140 mg/dL before meals <180 mg/dL all other times of the day Blood 03/01/2024 12:0 1 PM EDT 03/01/2024 12:01 PM EDT Rudi Hernandez MD POINT OF CARE TEST O RDERABLES [facility] [place] [place] [address] * Specimen to Pathology (03/01/2024 11:07 AM EDT) AP Specimen 03/01/2024 11:0 7 AM EDT 03/01/2024 11:07 AM EDT Narrative [facility] - 03/01/2024 11:07 AM EDT Specimen requisition ordered. ??Separate Pathology report to follow Rudi Hernandez MD PATHOLOGY/CYTOLOGY O RDERABLES [facility] [place] [address] * (ABNORMAL) BLOOD GAS 2 ARTERIAL (03/01/2024 10:55 AM EDT) pH, Arterial 7.43 7.35 - 7.45 [facility] PCO2, Arterial 35 35 - 45 mmHg [facility] PO2, Arterial 182(H) 85 - 104 mmHg [facility] Bicarbonate, Arterial 22.9 20.0 - 26.0 mmol/L [facility] Base Excess, Arterial -1.4 -3.0 - 3.0 mmol/L [facility] Hgb Blood Gas 14.5 13.7 - 16.5 g/dL [facility] Oxyhemoglobin, Arterial 98.4(H) 94.0 - 97.0 % [facility] Carboxyhemoglob in, Arterial 0.5 % [facility] Comment: Nonsmokers: 0.5-1.5% COHB Smokers: Variable, but usually less than 10% Toxic: 20-30% COHB Lethal: Greater than 60% COHB Methemoglobin, Arterial 0.3 <=1.5 % [facility] Na Whole Blood 135 135 - 145 mmol/L [facility] K Whole Blood 4.1 3.5 - 5.0 mmol/L [facility] Comment: Please note: Patients with WBC >100,000 may have falsely elevated Potassium levels. Contact the Clinical Chemistry Laboratory if there are any questions. ICa Whole Blood 1.12(L) 1.15 - 1.33 mmol/L [facility] Comment: Note: ??Total bilirubin higher than 20 mg/dL may lead to falsely low ionized calcium. CL Whole Blood 102 98 - 107 mmol/L [facility] Gluc Whole Bld 198 65 - 199 mg/dL [facility] Comment:Diabetes: >=200 mg/d L plus symptoms. Lactate WB 2.0 0.5 - 2.2 mmol/L [facility] Blood 03/01/2024 10:5 5 AM EDT 03/01/2024 10:55 AM EDT Rudi Hernandez MD POINT OF CARE TEST O RDERABLES [facility] [place] [address] * Surgical Pathology Report (03/01/2024 10:49 AM EDT) Final Diagnosis [id number] ? Location: L4WD; 0404; B The signing [...] MD Verified: ??03/10/2024 16:41 ??Pathologist Performed at: ??-[facility] [place], [place] [address] Tester Compressed Gases: Lee Sutton MD, AP, ??CLIA Certificate: [id number] SYNOPTIC Specimen ? Procedure: ??Pancreaticoduodene ctomy (Whipple [...] ??pT3 ? pN Category: ??pN1 ? CAP [facility] 2021 Q1 Release ADDITIONAL STUDIES Whole slide [...] is inked red. . SPECIMEN PROCESSING Sections/Processing: Vp Integration sections in 41 cassettes as follows: ?B1: [...] 1.4 x 1.0 x 0.7 cm. Sections/Processing: Vp Integration sections to include the entire lymph node are submitted in 1 cassettes as follows: ?C1: ??Single quadrisected lymph node D - Labeled/Fixative: Common hepatic artery lymph node #2, fresh. Quantity/Size: Single, 1.2 x 1.2 x 0.7 cm. Tissue Description: Shi-pink lymph node with minimal attached adipose tissue Sections/Processing: Quadrisected and entirely submitted in 2 cassettes labeled D1-D2. ??jnr 03/10/2024 4:41 PM EDT [facility] LYMPH NODE SPECIMEN / Unknown 03/01/2024 10:49 AM EDT 03/01/2024 10:49 AM EDT PANCREATIC STRUCTURE / Unknown 03/01/2024 10:49 AM EDT 03/01/2024 10:49 AM EDT LYMPH NODE SPECIMEN / Unknown 03/01/2024 10:49 AM EDT 03/01/2024 10:49 AM EDT LYMPH NODE SPECIMEN / Unknown 03/01/2024 10:49 AM EDT 03/01/2024 10:49 AM EDT Rudi Hernandez MD PATHOLOGY/CYTOLOGY O RDERABLES Performing Organization Address City/[facility]/ZIP Co de Phone Number [facility] [place] [address] * Specimen to Pathology (03/01/2024 10:49 AM EDT) AP Specimen 03/01/2024 10:4 9 AM EDT 03/01/2024 10:49 AM EDT Narrative [facility] - 03/01/2024 10:49 AM EDT Specimen requisition ordered. ??Separate Pathology report to follow Rudi Hernandez MD PATHOLOGY/CYTOLOGY O RDERAVANNESSA Performing Organization Address [facility]/ZIP Co de Phone Number [facility] [place] [address] * POCT Glucose (03/01/2024 9:59 AM EDT) Pathologist Cristine Glucose, POC 178 65 - 199 mg/dL [facility] Comment: Supplemental ranges: <140 mg/dL before meals <180 mg/dL all other times of the day Blood 03/01/2024 9:59 AM EDT 03/01/2024 9:59 AM EDT Rudi Hernandez MD POINT OF CARE TEST O RDERAVANNESSA Performing Organization Address City/[facility] Co de Phone Number [facility] [place] [place] [address] * Type and Screen Validity (03/01/2024 9:31 AM EDT) T&S only valid at [facility] Comment:This Type and Screen result is only valid at the [facility] Blood 03/01/2024 9:31 AM EDT 03/01/2024 9:31 AM EDT Narrative Resulting Agency Comment Spec In Lab Rudi Hernandez MD BLOOD BANK LAB ORDER DEDRA [facility] [place] [address] * ABORH Recheck Status (03/01/2024 9:31 AM EDT) ABORH Recheck Order Order Placed [facility] ABORH Type Recheck Completed [facility] Blood 03/01/2024 9:31 AM EDT 03/01/2024 9:31 AM EDT Narrative Resulting Agency Comment Spec In Lab Rudi Hernandez MD BLOOD BANK LAB ORDER DEDRA Performing Organization Address City/[facility]/ZIP Co de Phone Number [facility] [place] [address] * Type and screen ([facility]/FABIOLA) (03/01/2024 9:31 AM EDT) ABORH Type A POSITIVE [facility] Patient BB History Not Found [facility] Expires at [id number] on: 03/04/2024 [facility] Ab Screen Interp Negative [facility] Blood 03/01/2024 9:31 AM EDT 03/01/2024 9:31 AM EDT Narrative [facility] - 03/01/2024 9:31 AM EDT This Type and Screen result is only valid at the [facility] Resulting Agency Comment Spec In Lab Rudi Hernandez MD BLOOD BANK LAB ORDER DEDRA [facility] [place] [address] * (ABNORMAL) POCT Glucose (03/01/2024 9:14 AM EDT) Glucose, POC 211(H) 65 - 199 mg/dL [facility] Comment: Supplemental ranges: <140 mg/dL before meals <180 mg/dL all other times of the day Blood 03/01/2024 9:14 AM EDT 03/01/2024 9:14 AM EDT Rudi Hernandez MD POINT OF CARE TEST O RDERABLES [facility] [place] [address] * (ABNORMAL) BLOOD GAS 2 ARTERIAL (03/01/2024 8:39 AM EDT) pH, Arterial 7.38 7.35 - 7.45 [facility] PCO2, Arterial 37 35 - 45 mmHg [facility] PO2, Arterial 223(H) 85 - 104 mmHg [facility] Bicarbonate, Arterial 21.8 20.0 - 26.0 mmol/L [facility] Base Excess, Arterial -3.3(L) -3.0 - 3.0 mmol/L [facility] Hgb Blood Gas 13.3(L) 13.7 - 16.5 g/dL [facility] Oxyhemoglobin, Arterial 98.4(H) 94.0 - 97.0 % [facility] Carboxyhemoglob in, Arterial 0.9 % [facility] Comment: Nonsmokers: 0.5-1.5% COHB Smokers: Variable, but usually less than 10% Toxic: 20-30% COHB Lethal: Greater than 60% COHB Methemoglobin, Arterial 0.3 <=1.5 % [facility] Na Whole Blood 131(L) 135 - 145 mmol/L [facility] K Whole Blood 3.7 3.5 - 5.0 mmol/L [facility] Comment: Please note: Patients with WBC >100,000 may have falsely elevated Potassium levels. Contact the Clinical Chemistry Laboratory if there are any questions. ICa Whole Blood 1.10(L) 1.15 - 1.33 mmol/L [facility] Comment: Note: ??Total bilirubin higher than 20 mg/dL may lead to falsely low ionized calcium. CL Whole Blood 101 98 - 107 mmol/L [facility] Gluc Whole Bld 250(H) 65 - 199 mg/dL [facility] Comment:Diabetes: >=200 mg/d L plus symptoms. Lactate WB 1.1 0.5 - 2.2 mmol/L [facility] Blood 03/01/2024 8:39 AM EDT 03/01/2024 8:39 AM EDT Rudi Hernandez MD POINT OF CARE TEST O RDERABLES [facility] [place] [address] * XR Fluoro No Rad <1Hr - [...] Hernandez MD CHEMISTRY ORDERABLES Performing Organization Address [facility] Co de Phone Number [facility] [place] [address] * (ABNORMAL) POCT Glucose (03/01/2024 7:03 AM EDT) Glucose, POC 207(H) 65 - 199 mg/dL [facility] Comment: Supplemental ranges: <140 mg/dL before meals <180 mg/dL all other times of the day Blood 03/01/2024 7:03 AM EDT 03/01/2024 7:03 AM EDT Rudi Hernandez MD POINT OF CARE TEST O RDERABLES Performing Organization Address [facility] Co de Phone Number [facility] [place] [address] documented in this encounter Visit Diagnoses Not [...] of Hydralazine then call Surgical Oncology on 5012 Given 03/08/2024 5:15 AM EDT 10 mg [...] RN) 0000 (Given - Provider: Scotty Dela Cruz, GRETCHEN)0653 (Given - Provider: Scotty Dela Cruz RN)1217 [...] 0442 (Patch Removed - Provider: Nahomi Toussaint, RN) pantoprazole EC (Protonix) tablet 40 mg 40 mg, Oral, 2 TIMES DAILY, First dose on Fri03/05/24 at 0900, Until Discontinued, DO NOT CRUSH OR OPEN, Routine 0841 (Given - Provider: Dilma Dominique, RN)2200 (Given - Provider: Scotty Dela Cruz RN) 09 (Given - Provider: Bernadette Ford, GRETCHEN)2037 (Given - Provider: Nahomi Toussaint, RN) 0832 (Given - Provider: Mae Velazquez, RN) polyethylene glycoL (Miralax) packet 17 g 17 g, Oral, DAILY, First dose on Fri03/05/24 at 0900, Until Discontinued, Routine 0900 (Not Given - Provider: Dilma Dominique, GRETCHEN - Reason: Contraindicated) 0906 (Given - Provider: Bernadette Ford, GRETCHEN) 0900 (Not Given - Provider: Mae Velazquez, GRETCHEN - Reason: Patient/family refused) potassium chloride 10 mEq in sterile water 100 mL infusion (COMPLETED) 10 mEq, Intravenous, EVERY 2 HOURS, 4 doses, First dose on Fri03/06/24 at 0800, Last dose on Fri03/06/24 at 1400, Administer over 60 Minutes, Doses of 20 mEq or greater require a Central Line Warning Vesicant/Irritant Medication 0837 (New Bag - Provider: Dilma Dominique, GRETCHEN)0937 (Stopped - Provider: Dilma Dominique, GRETCHEN)0959 (New Bag - Provider: Dilma Dominique, GRETCHEN)1059 (Stopped - Provider: Dilma Dominique, GRETCHEN)1209 (New Bag - Provider: Dilma Dominique, RN)1309 (Stopped - Provider: Dilma Dominique, RN)1404 (New [...] on a programmed frequency, Recovery (Recovery-Hospital Unit) 3548 (New Bag - Provider: Scotty Dela Cruz [...] on a programmed frequency, Recovery (Recovery-Hospital Unit) 0884 (Rate/Dose Change - Provider: Bernadette Ford, GRETCHEN)1026 [...] of Hydralazine then call Surgical Oncology on 5012 1612 (Given - Provider: Bernadette Ford RN) [...] Ford, GRETCHEN)1517 (Given - Provider: Bernadette Ford, RN) prochlorperazine (Compazine) (5 mg/mL) injection 10 [...] Routine documented in this encounter Care Teams Gill Box Tender Relationship Specialty Start Date End Date Olga Hoffman APRN [address] [place] [address] PCP - General Family Medicine 10/30/22 documented as of this encounter
--- OUTSIDE RECORDS SUMMARY | 2024-05-31 21:24 | XMS_ITS | Encounter Summary ---
[place] [address] Care Team Providers Care Paper Products Printer Name Role Phone Olga Hoffman APRN Primary Care Provider [phone] Reason for Referral * Consultation (Routine) - Authorized Specialty Diagnoses / Procedures Referred By Janka holland Referred To Contact Endocrinology Diagnoses Type 2 diabetes mellitus without complications Olga Hoffman APRN [address] [place] [address] [facility] Endocrinology [address] [place] [phone] Referral ID Status Reason Start Date Expiration Date Visits Requested Visits Authorized [id number] Authorized Consult, Test & Treat PCP Updated and/or Approved 02/23/2024 02/22/2025 12 12 Encounter Details Date Type Department Care Team (Latest Contact Info) Description 03/05/2024 Transcribe Orders eDH Incoming Referrals [phone] Olga Hoffman APRN [address] [place] [address] Other specified diabetes mellitus with other specified complication, unspecified whether custodial insulin use Social History Tobacco Use Types Packs/Day Years Used Date Smoking Tobacco: Never Smokeless Tobacco: Never Alcohol Use Standard Drinks/Week Comments Not Currently 0 (1 standard drink = 0.6 oz pur e alcohol) [facility] Utilities Answer Date Recorded In the [...] any time in the past 12 m [facility], were you homeless or living [...] AM EDT Office Visit Hematology/Oncology at [address] [phone] Rodriguez Fowler MD [facility] [place] [address] [address] HEMATOLOGY AND ONCOLOGY [place], [place] [phone] 06/11/2024 10:00 AM EDT Infusion Hematology Oncology at [address] [phone] 06/25/2024 9:30 AM EDT Office Visit Hematology/Oncology at [address] [phone] Rodriguez Fowler MD [facility] [place] [address] [address] HEMATOLOGY AND ONCOLOGY [place], [place] [phone] 06/25/2024 10:00 AM EDT Infusion Hematology Oncology at [address] [phone] Scheduled Referrals Name Type Priority Associated Diagnoses Order Schedule Referral to Endocrinology Outpatient Referral Routine Other specified diabetes mellitus with other specified complication, unspecified whether long term care pharmacist insulin use Ordered: 03/05/2024 documented as of this encounter Visit Diagnoses Diagnosis Other specified diabetes mellitus with other specified complication, unspecified whether long term care pharmacist insulin use documented in this encounter Care Teams Paper Products Printer Relationship Specialty Start Date End Date Olga Hoffman APRN [address] [place] [address] PCP - General Family Medicine 10/30/22 documented as of this encounter
--- OUTSIDE RECORDS SUMMARY | 2024-05-31 21:24 | XMS_ITS | Encounter Summary ---
Author Organization [facility] [place] [address] Care Team Providers Care Bindery Cutter Operator Name Role Phone Olga Hoffman APRN Primary Care Provider [phone] Encounter Details Date Type Department Care Team (Late st Contact Info) Description 02/26/2024 Orders Only General Surgery at [facility] [place] [phone] June Delacruz Duodenal cancer (Primary Dx) Social [...] AM EDT Office Visit Hematology/Oncology at [address] [phone] Rodriguez Fowler MD [facility] [place] [address] [address] Cedillo [address] HEMATOLOGY AND ONCOLOGY [place], [place] [phone] 06/11/2024 10:00 AM EDT Infusion Hematology Oncology at [address] [phone] 06/25/2024 9:30 AM EDT Office Visit Hematology/Oncology at [address] [phone] Rodriguez Fowler MD [facility] [place] [address] Sherry Cedillo [address] HEMATOLOGY AND ONCOLOGY [place], [place] [phone] 06/25/2024 10:00 AM EDT Infusion Hematology Oncology at [address] [phone] documented as of this encounter Results * (ABNORMAL) Creatinine (03/01/2024 7:04 AM EDT) Creatinine 0.77(L) 0.80 - 1.50 mg/dL [facility] Est Glomerular Filtration Rate 110 >=60 mL/min/1. 73 m?? 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
--- OUTSIDE RECORDS SUMMARY | 2024-05-31 21:24 | XMS_ITS | Encounter Summary ---
[place] [address] Care Team Providers Care Vibrator Operator Name Role Phone DaltonOlga choi Arabella RUST Primary Care Provider [phone] Encounter Details Date Type Department Care Team (Late st Contact Info) Description 03/02/2024 11:59 PM EDT [place]est[place] [phone] Rafi Pena RN Anesthesia Record Procedure Summary [...] drink = 0.6 oz pur e alcohol) [facility] Utilities Answer Date Recorded In the past 12 months has [employer], gas, oil, or water [employer] threatened to shut off services in your [...] in the past 12 m [facility], were you homeless or living [...] 9:30 AM EDT Office Visit Hematology/Oncology at [address] [phone] Rodriguez Fowler MD [facility] [place] [address] Sherry Cedillo, [address] HEMATOLOGY AND ONCOLOGY [place], [place] [phone] 06/11/2024 10:00 AM EDT Infusion Hematology Oncology at [address] [phone] 06/25/2024 9:30 AM EDT Office Visit Hematology/Oncology at [address] [phone] Rodriguez Fowler MD [facility] [place] [address] Sherry Cedillo, [address] HEMATOLOGY AND ONCOLOGY [place], [place] [address] 06/25/2024 10:00 AM EDT Infusion Hematology Oncology at [address] [phone] documented as of this encounter Visit Diagnoses Not on filedocumented in this encounter Care Teams Vibrator Operator Relationship Specialty Start Date End Date Olga Hoffman APRN [address] [place] [address] PCP - General Family Medicine 10/30/22 documented as of this encounter
--- OUTSIDE RECORDS SUMMARY | 2024-05-31 21:24 | XMS_ITS | Encounter Summary ---
Author Organization [facility] Address [facility] [place] [address] Care Team Providers Care Digital Program Manager Name Role Phone Dalton Olgaevy Bell APRN Primary Care Provider [phone] Encounter Details Date Type Department Care Team (Late st Contact Info) Description 02/26/2024 2:35 PM EDT Ancillary Procedure Radiology Library at [facility] [place] [phone] Rudi Hernandez MD [facility] [place] [address] Social History Tobacco Use Types Packs/Day Years [...] medical appointments or from getting medications? No 05/1 09/2022 In the past 12 months, has l [...] AM EDT Office Visit Hematology/Oncology at [address] [phone] Rodriguez Fowler MD [facility] [place] [address] [address] HEMATOLOGY AND ONCOLOGY [place], [place] [address] 06/11/2024 10:00 AM EDT Infusion Hematology Oncology at [address] [phone] 06/25/2024 9:30 AM EDT Office Visit Hematology/Oncology at [address] [phone] Rodriguez Fowler MD [facility] [place] [address] [address] [place] [address] 06/25/2024 10:00 AM EDT Infusion Hematology Oncology at [address] [phone] documented as of this encounter Procedures Procedure [...] FILM LIBRARY ORD ERABLES Performing Organization Address City/State/[facility] Co de Phone Number [place], [place] documented in this encounter Visit Diagnoses Not on filedocumented in this encounter Care Teams Digital Program Manager Relationship Specialty Start Date End Date Olga Hoffman APRN [address] [place] [address] PCP - General Family Medicine 10/30/22 documented as of this encounter
--- OUTSIDE RECORDS SUMMARY | 2024-05-31 21:24 | XMS_ITS | Encounter Summary ---
Author Organization [facility] [place] [address] Care Team Providers Care Jinrikisha Driver Name Role Phone Dalton Olgaevy Bell APRN Primary Care Provider [phone] [phone] Reason for Visit * Auth/Cert (Routine) Specialty Diagnoses / Procedures Referred By Contac t Referred To Contact Diagnoses Malignant neoplasm of duodenum DUODENUM ADENCARCINOMA Procedures PRO PART REMV PANC, PROX+REMV DUOD+ANAST @WHIPPLE PROCEDURE (WRVU 52.84) Rudi Hernandez MD [facility] [place] [address] [facility] Referral ID Status Reason Start Date Expiration Date Visits Re quested Visits Authorized [id number] 1 1 Encounter Details Date Type Department Care Team (Late st Contact Info) Description 03/01/2024 7:43 AM EDT Anesthesia Event [place] [address] Gary Scott MD [facility] [place] [address] Campbell Rahman CRNA [facility] [place] [address] Anesthesia Record Procedure Summary Procedure Name Responsible [...] and acknowledgement of understanding Diane Sexton MD 7987 ABG Data Arterial Blood Gas result: pH [...] by Bernadette Ford RN PIV 03/01/24; 0741; wpjf-dlb-chlzex catheter system; 20 gauge; dorsal arch vein (top of hand), left; Anatomical Landmarks; pre op nurse; removed per policy/procedure, site symptomatic, catheter/device intact; 03/07/24; 1732 03/01/24 0741 by Campbell Rahman, IMCU SPECIALIST 03/07/24 173 by Ginny Bill RN ETT Mask Ventilation: Pk price (1); ETT Type: Cuffed, Oral; ETT Size: 8 mm; Mac Blade: 4; Notes: Asleep, Pre-O2, Cricoid Pressure; Attempts: 1; Laryngoscopy Grade: 2; ETT Placement Verified By: Auscultation, Capnometry, Visual; Secured at Teeth: 23 cm; Inserted by: Zeferino Rahman; Removal Date: 03/01/24; Removal Time: 182303/01/24 075 by Campbell Rahman, IMCU SPECIALIST 03/01/24 1824 by Campbell aRhman, IMCU SPECIALIST PIV 03/01/24; 0800; gfig-ozk-mgxitt catheter system; 18 gauge; dorsal arch vein (top of hand), right; Anatomical Landmarks; Diane Sexton; 03/06/24; 1551 03/01/24 0800 by Campbell Rahman, IMCU SPECIALIST 03/06/24 1551 by Dilma Dominique RN Urethral [...] indicated; 03/01/24; 213403/01/24 08 by Campbell Rahman, IMCU SPECIALIST 03/01/242134 by Roxie Rascon RN NG/OG Tube 03/01/24; 0917; odell t nostril; by at bedside; 03/03/24; 1143 03/01/24 0917 by Campbell Rahman CRNA 03/03/24 1143 by Violeta Manley RN Closed/Suction Drain 03/01/24; 1740; 1; Midline, Superior; Bulb; 19 Kazakh 03/01/24 1740 by Marisol Galvan RN 03/05/24 1540 by Dilma Dominique RN documented in this encounter Social History Tobacco Use Types Packs/Day Years Used Date Smoking Tobacco: Never Smokeless Tobacco: Never Alcohol Use Standard Drinks/Week Comments Not Currently 0 (1 standard drink = 0.6 oz pur e alcohol) [facility] Utilities Answer Date Recorded In [...] any time in the past 12 m [facility], were you homeless or living in a retirement (including now)? No 03/02/2024 DH IPV Inpatient [...] Procedure Summary Date: 03/01/24 Room / Location: [address] MAIN OR Anesthesia Start: 742 Anesthesia Stop: 1843 Procedure: @WHIPPLE PROCEDURE (WRVU 52.84) (Abdomen) Diagnosis: (DUODENUM ADENCARCINOMA) Surgeons: Rudi Hernandez MD Responsible Provider: Gary Scott MD Anesthesia Type: general ASA Status: 3 All Anesthesia Providers: Anesthesiologist: Gary Scott MD; Diane Sexton MD IMCU SPECIALIST: Campbell Rahman CRNA Vitals Value Taken Time BP 107/63 03/02/24 1116 Temp 36 ??C (96.8 ??F) 03/02/24 1116 Pulse 86 03/01/24 2149 Resp 18 03/02/24 1116 SpO2 94 % 03/02/24 1253 Pain Level 0 03/02/24 0843 Vitals shown include unfiled device data. Patient Location: PACU/[facility] Level of Consciousness: Conscious but Sleepy [...] Iohexol 300 mgI/mL, 2 mL Performed by: Resident/IMCU SPECIALIST: Juan Michelle MD Attending Physician: Shyla Bird MD Authorized by: Shyla Bird MD ~~~~~~~~~~~~~~~~~~~~~~~~~~~~~~~~~~~~~~~~~~~~~~~~~~~~~~~~~~~~ * Anesthesia Preprocedure Evaluation - Diane Sexton MD - 03/01/2024 6:54 AM EDT Pre-Anesthesia Evaluation for: Charles Nick a 48 y.o. male. Procedure(s): [facility] Patient Active Problem List Diagnosis Date Noted CKD (chronic kidney disease) stage 3, GFR 30-59 ml/min 01/31/2011 Obesity 01/31/2011 Past Medical History: Diagnosis Date CKD (chronic kidney disease) stage 3, GFR 30-59 ml/min 01/31/2011 Obesity 01/31/2011 Past Surgical History: Procedure Laterality Date IR BIOPSY LIVER PERCUTANEOUS - NON-FOCAL PARENCHYMA 01/07/2023 IR Biopsy Liver Percutaneous 01/07/2023 Juan Wright MD [facility] INTERVENTIONL RAD Social History Tobacco Use Smoking [...] consented to blood products. Plan discussed with IMCU SPECIALIST. Anesthesia Screening documented in this encounter Plan of Treatment Upcoming Encounters Date Type Department Care Team (Late st Contact Info) Description 06/11/2024 9:30 AM EDT Office Visit Hematology/Oncology at [address] [phone] Rodriguez Fowler MD [facility] [place] [address] Sherry Cedillo [address] HEMATOLOGY AND ONCOLOGY [place], [place] [address] 06/11/2024 10:00 AM EDT Infusion Hematology Oncology at [address] [phone] 06/25/2024 9:30 AM EDT Office Visit Hematology/Oncology at [address] [phone] Rodriguez Fowler MD [facility] [place] [address] [address] HEMATOLOGY AND ONCOLOGY [place], [place] [address] 06/25/2024 10:00 AM EDT Infusion Hematology Oncology at [address] [phone] documented as of this encounter Procedures Procedure Name Priority Date/Time Associated Diagnosis Comments [id number] ONLY Routine 03/01/2024 7:21 AM EDT documented in this encounter Results * [id number] ONLY (03/01/2024 7:21 AM EDT) Narrative Shyla [...] 300 mgI/mL, 2 mL Performed by: ?? Resident/IMCU SPECIALIST: ? Juan Michelle MD ?? Attending Physician: ? Shyla Bird MD Authorized by: Shyla Bird MD ?? ~~~~~~~~~~~~~~~~~~~~~~~~~~~~~~~~~~~~~~~~~~~~~~~~~~~~~~~~~~~~ Shyla Isidra Bird MD [employer] S documented in this encounter Visit Diagnoses [...] mg documented in this encounter Care Teams Jinrikisha Driver Relationship Specialty Start Date End Date Olga Hoffman APRN [address] [place] [address] PCP - General Family Medicine 10/30/22 documented as of this encounter
--- OUTSIDE RECORDS SUMMARY | 2024-05-31 21:25 | XMS_ITS | Encounter Summary ---
Author Organization [facility] Address One [facility] [place] [address] Care Team Providers Care Hotel Casino Floorperson Name Role Phone Dalton Olgaevy Bell APRN Primary Care Provider [phone] [phone] Encounter Details Date Type Department Care Team [...] AM EDT Office Visit Hematology/Oncology at [address] [phone] Rodriguez Fowler MD [facility] [place] [address] Sherry Cedillo APRN [address] [place] [address] DR HEMATOLOGY AND ONCOLOGY [place], [place] [id number] 06/11/2024 10:00 AM EDT Infusion Hematology Oncology at [address] [phone] 06/25/2024 9:30 AM EDT Office Visit Hematology/Oncology at [address] [phone] Rodriguez Fowler MD [facility] [place] [address] Sherry Cedillo APRN [address] [place] [address] DR HEMATOLOGY AND ONCOLOGY [place], [place] [phone] 06/25/2024 10:00 AM EDT Infusion Hematology Oncology at [address] [phone] documented as of this encounter Visit Diagnoses Not on filedocumented in this encounter Care Teams Hotel [employer] Floorperson Relationship Specialty Start Date End Date Olga Hoffman APRN [address] [place] [address] PCP - General Family Medicine 10/30/22 documented as of this encounter
--- OUTSIDE RECORDS SUMMARY | 2024-05-31 21:25 | XMS_ITS | Encounter Summary ---
Author Organization [facility] [place] [address] Care Team Providers Care Lathing Supervisor Name Role Phone Olga Hoffman APRN Primary Care Provider +1 [phone] Reason for Referral * Diagnostic Test (Routine) - Closed Specialty Diagnoses / Procedures Referred By Contac t Referred To Contact Radiology Diagnoses CHAN (nonalcoholic steatohepatitis) Procedures IR Biopsy Liver Percutaneous Eugenia Barrera [facility] [place] [address] [place] [address] Referral ID Status Reason Start Date Expiration Date V isits Requested Visits Authorized [id number] Closed Specialty Service Requested 12/25/2022 06/26/2024 1 1 Reason for Visit * Diagnostic Test (Routine) - Closed Specialty Diagnoses / Procedures Referred By Contac t Referred To Contact Radiology Diagnoses CHAN (nonalcoholic steatohepatitis) Procedures IR Biopsy Liver Percutaneous Eugenia Barrera [facility] [place] [address] [place] [address] Referral ID Status Reason Start Date Expiration Date V isits Requested Visits Authorized [id number] Closed Specialty Service Requested 12/25/2022 06/26/2024 1 1 Encounter Details Date Type Department Care Team (Latest Contact Info) Description 01/07/2023 7:15 AM EDT - 01/07/2023 11:59 PM EDT Hospital Encounter Radiology at [facility] [place] [address] Eugenia Barrera APRN [facility] [place] [address] CHAN (nonalcoholic steatohepatitis) Discharge Disposition: Home Social [...] Dickey LPN - 01/07/2023 8:29 AM EDT [facility] Vascular and Interventional Radiology Biopsy Discharge [...] be reported to you by your primary career development manager or the clinician who ordered the biopsy. Please do not call us for results as we will not have them. If you have not been contacted by your clinician within 5 business days you should call that officefor further information. When to call the Interventional Radiology Department: Please call with any questions or concerns. If it is during regular office hours, please call [phone]. If it is after regular office hours, or on weekends or holidays, please call [phone] and ask to speak to the Biosolids Management Technician extension specialist for Interventional Radiology. You have received [...] Date citalopram (CeleXA) 10 mg tablet Take 40 [...] of : 1975 AGE: 47 y.o. Address: [address] [place] [phone] (home) [phone] (work) Mobile: Telephone Information: Referring Provider: Eugenia Barrera REASON FOR VISIT: Order Questions Answers Where will study be performed? [facility] Radiology [120] Reason for exam and [...] 9:30 AM EDT Office Visit Hematology/Oncology at [address] [phone] Rodriguez Fowler MD [facility] [place] [address] [address] HEMATOLOGY AND ONCOLOGY [place], [place] [phone] 06/11/2024 10:00 AM EDT Infusion Hematology Oncology at [address] [phone] 06/25/2024 9:30 AM EDT Office Visit Hematology/Oncology at [address] [phone] Rodriguez Fowler MD [facility] [place] [address] [address] HEMATOLOGY AND ONCOLOGY [place], [place] [address] 06/25/2024 10:00 AM EDT Infusion Hematology Oncology at [address] [phone] documented as of this encounter Procedures Procedure [...] resident for the entire procedure. Eugenia Barrera STOCK TAKER IMG IR ORDERABLES * Surgical Pathology Report (01/07/2023 8:32 AM EDT) Final Diagnosis [id number] ? Location: [facility] The signing pathologist has (i) examined [...] MD Verified: ??01/08/2023 16:19 ??Pathologist Performed at: ??-[facility] Dept. of Pathology, [place] [address] Production Miner: Lee Sutton MD, FCAP, ??CLIA Certificate: [id number] ADDITIONAL STUDIES Whole slide scan: A1, trichrome [...] labeled A1. ??sns 01/08/2023 4:19 PM EDT [facility] LIVER STRUCTURE / Unknown 01/07/2023 8:32 AM EDT 01/07/2023 8:32 AM EDT Juan Wright MD PATHOLOGY/CYTOLOGY O [place] Performing Organization Address City/[facility]/ZIP Co de Phone Number [facility] [place] [address] [facility] [place] [address] * POCT Glucose (01/07/2023 7:36 AM EDT) Glucose, POC 139 65 - 199 mg/dL [facility] Comment: Supplemental ranges: <140 mg/dL before meals <180 mg/dL all other times of the day Blood 01/07/2023 7:36 AM EDT 01/07/2023 7:36 AM EDT Eugenia Barrera APRN POINT OF CARE TEST ORDERABLES Performing Organization Address City/[facility]/ZIP Co de Phone Number [facility] [place] [address] * Specimen to Pathology (01/07/2023 7:22 AM EDT) AP Specimen 01/07/2023 7:22 AM EDT 01/07/2023 7:22 AM EDT Narrative [facility] - 01/07/2023 7:22 AM EDT Specimen requisition ordered. ??Separate Pathology report to follow Juan Wright MD PATHOLOGY/CYTOLOGY O [place] Performing Organization Address [facility] Co de Phone Number [facility] [place] [address] documented in this encounter Visit Diagnoses Diagnosis [...] Fri01/07/23 at 0729, Until Fri01/07/23 at 1045, Pain, [...] mg documented in this encounter Care Teams Lathing Supervisor Relationship Specialty Start Date End Date lOga Hoffman APRN [address] [place] [address] PCP - General Family Medicine 10/30/22 documented as of this encounter
--- OUTSIDE RECORDS SUMMARY | 2024-05-31 21:25 | XMS_ITS | Encounter Summary ---
Author Organization [facility] [place] [address] Care Team Providers Care Treasury Agent Name Role Phone Olga Hoffman APRN Primary Care Provider [phone] [phone] Encounter Details Date Type Department Care Team (Latest Contact Info) Description 01/06/2023 8:00 AM EDT Laboratory Appointment Lab [address] [place] [phone] Type 2 diabetes mellitus with diabetic nephropathy, [...] AM EDT Office Visit Hematology/Oncology at [address] [phone] Rodriguez Fowler MD [facility] [place] [address] Sherry Cedillo APRN [address] [place] [address] [place] [address] 06/11/2024 10:00 AM EDT Infusion Hematology Oncology at [address] [phone] 06/25/2024 9:30 AM EDT Office Visit Hematology/Oncology at [address] [phone] Rodriguez Fowler MD [facility] [place] [address] Sherry Cedillo APRN [address] [place] [address] DR HEMATOLOGY AND ONCOLOGY [place], [place] [phone] 06/25/2024 10:00 AM EDT Infusion Hematology Oncology at [address] [phone] documented as of this encounter Procedures Procedure [...] EDT) Iron 82 45 - 160 mcg/dL [facility] TIBC 340 250 - 450 mcg/dL [facility] Iron Saturation 24 20 - 50 % [facility] Blood Venous Draw / Unknown 01/06/2023 8:32 AM EDT 01/06/2023 8:43 AM EDT Narrative Resulting Agency Comment Spec In Lab Faye Maxwell MD CHEMISTRY ORDERABLES Performing Organization Address City/State/[facility] Co de Phone Number [facility] [place] [address] * (ABNORMAL) Differential, Automated (01/06/2023 8:32 AM EDT) Neutrophil % 71.6 % [facility] Neutrophil Absolute 6.75(H) 1.70 - 6.10 x10(3)/mc L [facility] Lymph % 21.1 % [facility] Lymphocytes Abs 2.0 0.9 - 3.2 x10(3)/mc L [facility] Monocyte % 4.6 % [facility] Monocyte Abs 0.4 0.3 - 0.9 x10(3)/mc L [facility] Eos % 1.7 % [facility] Eosinophils Abs 0.2 0.0 - 0.4 x10(3)/mc L [facility] Basophil % 0.8 % [facility] Baso Absolute 0.1 0.0 - 0.1 x10(3)/mc L [facility] Immature Gran % 0.20 % [facility] Comment: Immature granulocytes(IG's)percentage and absolute count will include metamyelocytes, myelocytes, and promyelocytes. Blood smears from CBCs yielding IG's will be scanned manually for concordance. If this scan disagrees with the automated IG or if promyelocytes are noted, a manual differential will be performed. Immature Gran Absolute 0.02 0.00 - 0.04 x10(3)/ L [facility] Blood 01/06/2023 8:32 AM EDT 01/06/2023 8:39 AM EDT Narrative Resulting Agency Comment Spec In Lab Faye Maxwell MD HEMATOLOGY ORDERABLE S [facility] [place] [address] * (ABNORMAL) Hemogram (01/06/2023 8:32 AM EDT) White Blood Cell 9.4 4.0 - 9.5 x10(3)/mc L [facility] Red Blood Cell 6.52(H) 4.58 - 5.54 x10(6)/ L [facility] Hemoglobin 16.2 13.7 - 16.5 g/dL [facility] Hematocrit 49.9(H) 40.5 - 48.5 % [facility] Mean Cell Volume 76.5(L) 82.9 - 93.1 fL [facility] Mean Cell Hemoglobin 24.8(L) 27.5 - 32.1 pg [facility] Mean Cell Hemoglobin Concentration 32.5 32.0 - 35.7 g/dL [facility] Platelet 228 145 - 357 x10(3)/ L [facility] RDW Standard Deviation 40.7 36.0 - 45.0 fL [facility] RDW coefficient of variation 15.5(H) 11.4 - 13.8 % [facility] Mean Platelet Volume 10.3 7.6 - 12.9 fL [facility] NRBC% auto 0.0 % [facility] NRBC Absolute 0.000 0.000 - 0.000 x10(3)/mc L [facility] Blood 01/06/2023 8:32 AM EDT 01/06/2023 8:39 AM EDT Narrative Resulting Agency Comment Spec In Lab Faye Maxwell MD HEMATOLOGY ORDERABLE S Performing Organization Address City/[facility]/ZIP Co de Phone Number [facility] [place] [address] * (ABNORMAL) PTH (01/06/2023 8:32 AM EDT) Parathyroid Hormone 121(H) 15 - 65 pg/mL [facility] Blood 01/06/2023 8:32 AM EDT 01/06/2023 8:39 AM EDT Narrative Resulting Agency Comment Spec In Lab Faye Maxwell MD CHEMISTRY ORDERABLES Performing Organization Address City/[facility] Co de Phone Number [facility] [place] [address] * Uric acid (01/06/2023 8:32 AM EDT) Uric Acid 6.7 3.5 - 8.5 mg/dL [facility] Blood 01/06/2023 8:32 AM EDT 01/06/2023 8:39 AM EDT Narrative Resulting Agency Comment Spec In Lab Faye Maxwell MD CHEMISTRY ORDERABLES Performing Organization Address City/[facility] Co de Phone Number [facility] [place] [address] * Phosphorus (01/06/2023 8:32 AM EDT) Phosphorus 2.8 2.5 - 4.5 mg/dL [facility] Blood 01/06/2023 8:32 AM EDT 01/06/2023 8:39 AM EDT Narrative Resulting Agency Comment Spec In Lab Faye Maxwell MD CHEMISTRY ORDERABLES [facility] [address] * Comprehensive metabolic panel (non-fasting) (01/06/2023 8:32 AM EDT) Glucose 142 65 - 199 mg/dL [facility] Comment:Diabetes: >=200 mg/d L plus symptoms Blood Urea Nitrogen 10 10 - 20 mg/dL [facility] Creatinine 1.03 0.80 - 1.50 mg/dL [facility] Sodium 140 135 - 145 mmol/L [facility] Potassium 4.4 3.5 - 5.0 mmol/L [facility] Comment: Please note: ??Patients with WBC >100,000 may have falsely elevated Potassium levels. ??For accurate Potassium quantification in these patients send serum separator tube (gold top) for subsequent determinations. ??Contact the Clinical Chemistry Laboratory if there are any questions. Chloride 100 98 - 107 mmol/L [facility] Carbon Dioxide 30 22 - 31 mmol/L [facility] Anion Gap 10 5 - 15 mmol/L [facility] Calcium 9.3 8.5 - 10.5 mg/dL [facility] Protein, Total 7.9 6.1 - 8.0 g/dL [facility] Albumin 4.5 3.2 - 5.2 g/dL [facility] Aspartate Aminotransferase 17 0 - 39 unit/L [facility] Alanine Aminotransferase 19 0 - 55 unit/L [facility] Alkaline Phosphatase 90 40 - 130 unit/L [facility] Bilirubin, Total 0.5 0.2 - 1.3 mg/dL [facility] Est Glomerular Filtration Rate 90 >=60 mL/min/1. 73 m?? 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
--- OUTSIDE RECORDS SUMMARY | 2024-05-31 21:25 | XMS_ITS | Encounter Summary ---
Author Organization [facility] Address [facility] [place] [address] Care Team Providers Care [facility] Psychiatrist Name Role Phone Olga Hoffman APRN Primary Care Provider [phone] [phone] Encounter Details Date Type Department Care Team (Late st Contact Info) Description 01/26/2024 Ancillary Procedure Radiology Library [place] [phone] Olga Hoffman APRN [address] [place], [place] [phone] Social History Tobacco Use Types Packs/Day Years [...] 9:30 AM EDT Office Visit Hematology/Oncology at [address] [phone] Rodriguez Fowler MD [facility] [place] [address] [address] HEMATOLOGY AND ONCOLOGY [place], [place] [address] 06/11/2024 10:00 AM EDT Infusion Hematology Oncology at [address] [phone] 06/25/2024 9:30 AM EDT Office Visit Hematology/Oncology at [address] [phone] Rodriguez Fowler MD [facility] [place] [address] [address] [place] [address] 06/25/2024 10:00 AM EDT Infusion Hematology Oncology at [address] [phone] documented as of this encounter Procedures Procedure Name Priority Date/Time Associated Diagnosis Comments FILM LIBRARY STORAGE ONLY MR ABDOMEN Routine 01/26/2024 12:00 AM EDT documented in this encounter Results * Film Library- Storage Only MR Abdomen (01/26/2024 12:00 AM EDT) Narrative ITA - 01/27/2024 10:32 AM EDT This exam is auto-finalizing. It's purpose is for storage only. lOga Hoffman APRN IMMer FILM LIBRARY ORDERABLES Performing Organization Address City/State/[facility] Co de Phone Number [place], [place] documented in this encounter Visit Diagnoses Not on filedocumented in this encounter Care Teams [facility] Psychiatrist Relationship Specialty Start Date End Date Olga Hoffman APRN [address] [place] [address] PCP - General Family Medicine 10/30/22 documented as of this encounter
--- OUTSIDE RECORDS SUMMARY | 2024-05-31 21:25 | XMS_ITS | Encounter Summary ---
[place] [address] Care Team Providers Care Psych Arnp Name Role Phone Olga Hoffman APRN Primary Care Provider [phone] [phone] Encounter Details Date Type Department Care Team (Latest Contact Info) Description 01/24/2023 10:31 AM EDT - 01/24/2023 11:59 PM EDT Hospital Encounter Hematology [place] [address] Type 2 diabetes mellitus with diabetic nephropathy, [...] AM EDT Office Visit Hematology/Oncology at [address] [phone] Rodriguez Fowler MD [facility] [place] [address] [address] HEMATOLOGY AND ONCOLOGY [place], [place] [phone] 06/11/2024 10:00 AM EDT Infusion Hematology Oncology at [address] [phone] 06/25/2024 9:30 AM EDT Office Visit Hematology/Oncology at [address] [phone] Rodriguez Fowler MD [facility] [place] [address] [address] HEMATOLOGY AND ONCOLOGY [place], [place] [address] 06/25/2024 10:00 AM EDT Infusion Hematology Oncology at [address] [phone] Scheduled Orders Name Type Priority Associated Diagnoses [...] 10:42 AM EDT) Neutrophil % 67.5 % [facility] Neutrophil Absolute 5.62 1.70 - 6.10 x10(3)/mc L [facility] Lymph % 24.1 % [facility] Lymphocytes Abs 2.0 0.9 - 3.2 x10(3)/mc L [facility] Monocyte % 5.0 % [facility] Monocyte Abs 0.4 0.3 - 0.9 x10(3)/mc L [facility] Eos % 1.6 % [facility] Eosinophils Abs 0.1 0.0 - 0.4 x10(3)/mc L [facility] Basophil % 0.8 % [facility] Baso Absolute 0.1 0.0 - 0.1 x10(3)/mc L [facility] Immature Gran % 1.00 % [facility] Comment: Immature granulocytes(IG's)percentage and absolute count will include metamyelocytes, myelocytes, and promyelocytes. Blood smears from CBCs yielding IG's will be scanned manually for concordance. If this scan disagrees with the automated IG or if promyelocytes are noted, a manual differential will be performed. Immature Gran Absolute 0.08(H) 0.00 - 0.04 x10(3)/mc L [facility] Blood 01/24/2023 10:4 2 AM EDT 01/24/2023 10:51 AM EDT Narrative Resulting Agency Comment Spec In Lab Faye Maxwell MD HEMATOLOGY ORDERABLE S [facility] [place] [address] * (ABNORMAL) Hemogram (01/24/2023 10:42 AM EDT) White Blood Cell 8.3 4.0 - 9.5 x10(3)/mc L [facility] Red Blood Cell 5.93(H) 4.58 - 5.54 x10(6)/mc L [facility] Hemoglobin 14.8 13.7 - 16.5 g/dL [facility] Hematocrit 45.1 40.5 - 48.5 % [facility] Mean Cell Volume 76.1(L) 82.9 - 93.1 fL [facility] Mean Cell Hemoglobin 25.0(L) 27.5 - 32.1 pg [facility] Mean Cell Hemoglobin Concentration 32.8 32.0 - 35.7 g/dL [facility] Platelet 206 145 - 357 x10(3)/mc L [facility] RDW Standard Deviation 40.2 36.0 - 45.0 fL [facility] RDW coefficient of variation 14.8(H) 11.4 - 13.8 % [facility] Mean Platelet Volume 10.4 7.6 - 12.9 fL [facility] NRBC% auto 0.0 % [facility] NRBC Absolute 0.000 0.000 - 0.000 x10(3)/ L [facility] Blood 01/24/2023 10:4 2 AM EDT 01/24/2023 10:51 AM EDT Narrative Resulting Agency Comment Spec In Lab Faye Maxwell MD HEMATOLOGY ORDERABLE S [facility] [place] [address] * Iron and TIBC (01/24/2023 10:42 AM EDT) Iron 67 45 - 160 mcg/dL [facility] TIBC 304 250 - 450 mcg/dL [facility] Iron Saturation 22 20 - 50 % [facility] Blood 01/24/2023 10:4 2 AM EDT 01/24/2023 10:51 AM EDT Narrative Resulting Agency Comment Spec In Lab Veena Cunningham MD CHEMISTRY ORDERA BLES Performing Organization Address [facility] Co de Phone Number [facility] [place] [address] * (ABNORMAL) Reticulocyte Count (01/24/2023 10:42 AM EDT) [facility] Reticulocyte % 1.0 0.7 - 2.6 % [facility] Retic Abs # 0.060 0.030 - 0.120 x10(6)/mcL [facility] Immature Retic% 5.7 0.0 - 15.6 % [facility] Reticulated Hgb 27.7(L) 31.3 - 40.2 pg [facility] Blood 01/24/2023 10:4 2 AM EDT 01/24/2023 10:51 AM EDT Narrative Resulting Agency Comment Spec In Lab Veena Cunningham MD HEMATOLOGY ORDER DEDRA Performing Organization Address [facility] Co de Phone Number [facility] [place] [address] * Ferritin (01/24/2023 10:42 AM EDT) [facility] Ferritin 113 30 - 400 ng/mL [facility] Comment: Pediatric reference ranges not verified at [facility], interpret with caution. Reference ranges for females greater than 50 years of age approach values for men, i.e., 30-400 ng/mL. Blood 01/24/2023 10:4 2 AM EDT 01/24/2023 10:51 AM EDT Narrative Resulting Agency Comment Spec In Lab Veena Cunningham MD CHEMISTRY ORDERA BLES Performing Organization Address [facility] Co de Phone Number [facility] [place] [address] * JAK2 [id number], Exon12, and Other Non-V617F Mut (01/24/2023 10:42 AM EDT) [facility] Somatic JAK2 Result Negative [facility] Somatic JAK2 Interp JAK2 Somatic [...] extracted from blood and analyzed with the Appside Myeloid sequencing assayTM. Amplicon-based library preparation, template preparation and chip-loading utilize the [employer], and sequencing is performed on the [employer] System. Reads from JAK2 exons 12-15 are analyzed for single nucleotide variants, deletions, and insertions. Base Calling and alignment is performed on the TorrSand Technology Suite [employer] Suite 5.12.0.Variant calling is performed on the Edfolio Rotary Cutter Feeder version 5.14. LIMITATIONS AND DISCLAIMERS: ??The analytic [...] Genomics and Advanced Technology (CGAT) Laboratory at [facility]. It has not been cleared or approved by the FDA. The laboratory is regulated under CLIA as qualified to perform high-complexity testing. This test is used for clinical purposes. It should not be regarded as investigational or for research. [facility] Comment: [VERIFIED DATE]02.04.23 Verified By:Neptali Calixto, Mohan Franks Molecular Pathologist (Electronic Signature) Blood 01/24/2023 10:4 2 AM EDT 01/24/2023 1:39 PM EDT Narrative Resulting Agency Comment Spec In Lab Veena Cunningham MD MOLECULAR ORDERA BLES Performing Organization Address [facility] Co de Phone Number [facility] [place] [address] * Erythropoietin Level (01/24/2023 10:42 AM EDT) Pathologist [facility] Erythropoietin (JANUARY) 11.8 2.6 - 18.5 mIU/mL [facility] Comment: Test Performed by: [facility] [address] [place] [address] Informatica: Adam Gifford M.D. Ph.D.; CLIA# [id number] Blood 01/24/2023 10:4 2 AM EDT 01/24/2023 12:49 PM EDT Narrative Resulting Agency Comment Spec In Lab Veena Cunningham MD LAB SEND OUT ORD ERABLES Performing Organization Address [facility] Co de Phone Number [facility] [place] [address] * (ABNORMAL) Comprehensive metabolic panel (non-fasting) (01/24/2023 10:42 AM EDT) [facility] Glucose 106 65 - 199 mg/dL [facility] Comment:Diabetes: >=200 mg/d L plus symptoms Blood Urea Nitrogen 7(L) 10 - 20 mg/dL [facility] Creatinine 0.92 0.80 - 1.50 mg/dL [facility] Sodium 140 135 - 145 mmol/L [facility] Potassium 4.5 3.5 - 5.0 mmol/L [facility] Comment: Please note: ??Patients with WBC >100,000 may have falsely elevated Potassium levels. ??For accurate Potassium quantification in these patients send serum separator tube (gold top) for subsequent determinations. ??Contact the Clinical Chemistry Laboratory if there are any questions. Chloride 103 98 - 107 mmol/L [facility] Carbon Dioxide 28 22 - 31 mmol/L [facility] Anion Gap 9 5 - 15 mmol/L [facility] Calcium 9.2 8.5 - 10.5 mg/dL [facility] Protein, Total 7.2 6.1 - 8.0 g/dL [facility] Albumin 4.1 3.2 - 5.2 g/dL [facility] Aspartate Aminotransferase 18 0 - 39 unit/L [facility] Alanine Aminotransferase 21 0 - 55 unit/L [facility] Alkaline Phosphatase 81 40 - 130 unit/L [facility] Bilirubin, Total 0.4 0.2 - 1.3 mg/dL [facility] Est Glomerular Filtration Rate 103 >=60 mL/min/1. 73 m?? [facility] Comment: This patient's estimated GFR [...] In Lab Faye Maxwell MD CHEMISTRY ORDERABLES [facility] [place] [address] * Phosphorus (01/24/2023 10:42 AM EDT) Phosphorus 3.1 2.5 - 4.5 mg/dL [facility] Blood 01/24/2023 10:4 2 AM EDT 01/24/2023 10:51 AM EDT Narrative Resulting Agency Comment Spec In Lab Faye Maxwell MD CHEMISTRY ORDERABLES [facility] [place] [address] * Uric acid (01/24/2023 10:42 AM EDT) Uric Acid 5.7 3.5 - 8.5 mg/dL [facility] Blood 01/24/2023 10:4 2 AM EDT 01/24/2023 10:51 AM EDT Narrative Resulting Agency Comment Spec In Lab Faye Maxwell MD CHEMISTRY ORDERABLES Performing Organization Address City/[facility]/ZIP Co de Phone Number [facility] [place] [address] * PTH (01/24/2023 10:42 AM EDT) Parathyroid Hormone 60 15 - 65 pg/mL [facility] Blood 01/24/2023 10:4 2 AM EDT 01/24/2023 10:51 AM EDT Narrative Resulting Agency Comment Spec In Lab Faye Maxwell MD CHEMISTRY ORDERABLES Performing Organization Address City/[facility] Co de Phone Number [facility] [place] [address] documented in this encounter Visit Diagnoses Diagnosis Type 2 diabetes mellitus with diabetic nephropathy, 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
--- OUTSIDE RECORDS SUMMARY | 2024-05-31 21:25 | XMS_ITS | Encounter Summary ---
Author Organization [facility] Address [facility] [place] [address] Care Team Providers Care String Studies Director Name Role Phone Olga Hoffman APRN Primary Care Provider +[phone] Encounter Details Date Type Department Care Team (Late st Contact Info) Description 02/07/2023 1:00 PM EDT TH Visit (TeleHealth) [place]ematology [place] [address] Veena Cunningham MD [facility] [address] [place] [address] Erythrocytosis; Microcytosis Social History Tobacco Use Types [...] the Last Year: No ?? Lives in [place] (1hr [place]mts from [facility] ?? 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 Smoking: No No family history [...] this patient's situation further. Veena Mckeon MD [facility] CC: YOCASTA Briones Kathryn H documented in this encounter Plan of Treatment Upcoming Encounters Date Type Department Care Team (Late st Contact Info) Description 06/11/2024 9:30 AM EDT Office Visit Hematology/Oncology at [address] [phone] Rodriguez Fowler MD [facility] [place] [address] Sherry Cedillo [address] HEMATOLOGY AND ONCOLOGY [place], [place] [phone] 06/11/2024 10:00 AM EDT Infusion Hematology Oncology at [address] [phone] 06/25/2024 9:30 AM EDT Office Visit Hematology/Oncology at [address] [phone] Rodriguez Fowler MD [facility] [place] [address] [address] Cedillo [address] HEMATOLOGY AND ONCOLOGY [place], [place] [phone] 06/25/2024 10:00 AM EDT Infusion Hematology Oncology at [address] [phone] documented as of this encounter Visit Diagnoses Diagnosis Erythrocytosis Polycythemia, secondary Microcytosis Other abnormality of red blood cells documented in this encounter Care Teams String Studies Director Relationship Specialty Start Date End Date Olga Hoffman APRN [address] [place] [address] PCP - General Family Medicine 10/30/22 documented as of this encounter
--- OUTSIDE RECORDS SUMMARY | 2024-05-31 21:25 | XMS_ITS | Encounter Summary ---
[place] [address] Care Team Providers Care Guest Relations Executive Name Role Phone Olga Hoffman APRN Primary Care Provider [phone] Reason for Referral * Consultation (Routine) - Closed Specialty Diagnoses / Procedures Referred By Janak t Referred To Contact Hematology and Oncology Diagnoses Polycythemia Olga Hoffman APRN [address] [place] [address] [facility] Hem Onc [address] [place] [address] Referral ID Status Reason Start Date Expiration Date V isits Requested Visits Authorized [id number] Closed Consult, Test & Treat PCP Updated and/or Approved 11/20/2022 11/20/2023 6 6 Encounter Details Date Type Department Care Team (Late st Contact Info) Description 11/20/2022 Transcribe Orders eDH Incoming Referrals [phone] Olga Hoffman APRN [address] [place] [address] Polycythemia Social History Tobacco Use [...] AM EDT Office Visit Hematology/Oncology at [address] [phone] Rodriguez Fowler MD [facility] [address] Sherry Cedillo [address] [place]ATOLOGY [place] [address] 06/11/2024 10:00 AM EDT Infusion Hematology Oncology at [address] [phone] 06/25/2024 9:30 AM EDT Office Visit Hematology/Oncology at [address] [phone] Rodriguez Fowler MD [facility] [place] [address] [address] HEMATOLOGY AND ONCOLOGY [place], [place] [address] 06/25/2024 10:00 AM EDT Infusion Hematology Oncology at [address] [phone] Scheduled Referrals Name Type Priority Associated Diagnoses Order Schedule Referral to Hematology and Oncology Outpatient Referral Routine Polycythemia Ordered: 11/20/2022 documented as of this encounter Visit Diagnoses Diagnosis Polycythemia Polycythemia vera documented in this encounter Care Teams Guest Relations Executive Relationship Specialty Start Date End Date Olga Hoffman APRN [address] [place] [address] PCP - General Family Medicine 10/30/22 documented as of this encounter
--- OUTSIDE RECORDS SUMMARY | 2024-05-31 21:25 | XMS_ITS | Encounter Summary ---
[place] [address] Care Team Providers Care Camera Systems Engineer Name Role Phone Olga Hoffman APRN Primary Care Provider [phone] Reason for Visit * Diagnostic Test (Routine) - Closed Specialty Diagnoses / Procedures Referred By Contac t Referred To Contact Radiology Diagnoses Duodenal adenocarcinoma Procedures NM PET CT Skull Base to Mid-thigh Jaki Phillips [address] [place] [address] [place] [address] Referral ID Status Reason Start Date Expiration Date V isits Requested Visits Authorized [id number] Closed Specialty Service Requested 01/13/2024 07/14/2025 1 1 Encounter Details Date Type Department Care Team (Latest Contact Info) Description 01/27/2024 12:06 PM EDT - 01/27/2024 11:59 PM EDT Hospital Encounter [place] [address] Jaki Phillips [address] [place], [place] [id number] Discharge Disposition: Home Social History Tobacco Use [...] 09/19/2023 citalopram (CeleXA) 10 mg tablet Take 40 [...] 9:30 AM EDT Office Visit Hematology/Oncology at [address] [phone] Rodriguez Fowler MD [facility] [place] [address] [address] HEMATOLOGY AND ONCOLOGY [place], [place] [phone] 06/11/2024 10:00 AM EDT Infusion Hematology Oncology at [address] [phone] 06/25/2024 9:30 AM EDT Office Visit Hematology/Oncology at [address] [phone] Rodriguez Fowler MD [facility] [place] [address] Sherry Cedillo [address] [place] [address] 06/25/2024 10:00 AM EDT Infusion Hematology Oncology at [address] [phone] documented as of this encounter Procedures Procedure Name Priority Date/Time Associated Diagnosis Comments NM PET CT SKULL BASE TO MID-THIGH ([facility]) Routine 01/27/2024 1:46 PM EDT Duodenal adenocarcinoma POCT GLUCOSE Routine 01/27/2024 12:16 PM EDT documented in this encounter Results * POCT Glucose (01/27/2024 12:16 PM EDT) Glucose, POC 112 65 - 199 mg/dL [facility] Comment: Supplemental ranges: <140 mg/dL before meals <180 mg/dL all other times of the day Blood 01/27/2024 12:1 6 PM EDT 01/27/2024 12:16 PM EDT Jaki Phillips DO POINT OF CARE TEST O RDERABLES [facility] [place] [address] documented in this encounter Visit Diagnoses Not on filedocumented in this encounter Care Teams Camera Systems Engineer Relationship Specialty Start Date End Date Olga Hoffman APRN [address] [place] [address] PCP - General Family Medicine 10/30/22 documented as of this encounter
--- OUTSIDE RECORDS SUMMARY | 2024-05-31 21:25 | XMS_ITS | Encounter Summary ---
Author Organization [facility] Address [facility] [place] [address] Care Team Providers Care Fur Nailer Name Role Phone Dalton Olga Arabella RUST Primary Care Provider [phone] Encounter Details Date Type Department Care Team [...] AM EDT Office Visit Hematology/Oncology at [address] [phone] Rodriguez Fowler MD [facility] [place] [address] Sherry Cedillo [employer] [address] [place] [address] DR HEMATOLOGY AND ONCOLOGY [place], [place] [phone] 06/11/2024 10:00 AM EDT Infusion Hematology Oncology at [address] [phone] 06/25/2024 9:30 AM EDT Office Visit Hematology/Oncology at [address] [phone] Rodriguez Fowler MD [facility] [place] [address] Sherry Cedillo APRN [address] [place] [address] HEMATOLOGY AND ONCOLOGY [place], [place] [phone] 06/25/2024 10:00 AM EDT Infusion Hematology Oncology at [address] [phone] documented as of this encounter Visit Diagnoses Not on filedocumented in this encounter Care Teams Fur Nailer Relationship Specialty Start Date End Date Olga Hoffman APRN [address] [place] [address] PCP - General Family Medicine 10/30/22 documented as of this encounter
--- OUTSIDE RECORDS SUMMARY | 2024-05-31 21:25 | XMS_ITS | Encounter Summary ---
Author Organization [facility] Address [place] [address] Care Team Providers Care Assistant Teacher Primary Name Role Phone Olga Hoffman APRN Primary Care Provider +1 [phone] Encounter Details Date Type Department Care Team (Latest Contact Info) Description 01/12/2024 11:28 AM EDT - 01/12/2024 11:59 PM EDT Hospital [place] [address] Discharge Disposition: Home Social History Tobacco Use [...] 9:30 AM EDT Office Visit Hematology/Oncology at [address] [phone] Rodriguez Fowler MD [facility] [place] [place] [address] [address] [place] [address] 06/11/2024 10:00 AM EDT Infusion Hematology Oncology at [address] [phone] 06/25/2024 9:30 AM EDT Office Visit Hematology/Oncology at [address] [phone] Rodriguez Fowler MD [facility] [place] [address] [address] HEMATOLOGY AND ONCOLOGY [place], [place] [phone] 06/25/2024 10:00 AM EDT Infusion Hematology Oncology at [address] [phone] documented as of this encounter Procedures Procedure Name Priority Date/Time Associated Diagnosis Comments SURGICAL PATHOLOGY REPORT Routine 01/12/2024 11:28 AM EDT documented in this encounter Results * (ABNORMAL) Surgical Pathology Report (01/12/2024 11:28 AM EDT) Final Diagnosis [id number] ? Location: OPW The signing pathologist has (i) examined the relevant preparation(s) for the specimen(s) and (ii) rendered or confirmed the diagnosis(es). . ? Addendum ADDENDUM DISCUSSION B - Outside slide(s) labeled [id number], collection date 01/02/2024. 1. Small Intestine, duodenal [...] tests. Block ? Antibody ? Result (Positive/Negative) [id number] ??MLH1 ? intact nuclear staining in tumor [...] The assay was performed according to the shake packer's instructions using anti-MLH-1 (ES05), anti-MSH-2 ([id number]), anti-MSH-6 (44), and anti-PMS-2 (MRQ-28) antibodies. Electronically signed by: ?Dyan Lieberman MD Verified: ??02/19/2024 11:14 ??Pathologist Performed at: ??-[facility] Dept. of Pathology, [place] [address] Communications Department Chairperson: Lee Sutton MD, AP, ??CLIA Certificate: [id number] ?Surgical Pathology DIAGNOSIS CONSULTATION CASE A - Outside slide(s) labeled [id number], collection date 12/05/2022. 1. Small Intestine, Duodenal [...] ??Tubular adenoma. B - Outside slide(s) labeled [id number], collection date 01/02/2024. . DIAGNOSIS 1. Small Intestine, duodenal polyp: - Invasive moderately differentiated adenocarcinoma. - Lymphovascular invasion is present (supported with outside submitted ERG and CD31 immunostains). Electronically signed by: ?Mio KAUFMAN, Dyan Verified: ??01/22/2024 16:12 ??Pathologist Performed at: ??-[facility] Dept. of Pathology, [place] [address] Communications Department Chairperson: Lee Sutton MD, AP, ??CLIA Certificate: [id number] DISCUSSION THIS RESULT REQUIRES PHYSICIAN/A.P.P. FOLLOW UP ADDITIONAL STUDIES Whole slide scan: [id number] part A-1 [id number] part B and stains SPECIMEN(S) SUBMITTED CONSULTATION CASE A - 2 slide(s) labeled [id number], collection date 12/05/2022. B - 3 slide(s) labeled [id number], collection date 01/02/2024. [id number] CARBON COPY: Surgical Pathology Department [facility], 2nd Floor [address] [place], [place] ??[address] CLINICAL INFORMATION . SPECIMEN PROCESSING ([facility]) pathology slide(s) are reviewed. Refer to Diagnosis and Specimen Submitted for specific case information. For the full text of the [facility] report(s) please refer to the Chart Review Media tab in the electronic health record (eDH).(A) 02/19/2024 11:14 AM EDT [facility] Consult Case 01/12/2024 11:2 8 AM EDT 01/12/2024 11:28 AM EDT Consult Case 01/12/2024 11:2 8 AM EDT 01/12/2024 11:28 AM EDT Faye Maxwell MD PATHOLOGY/CYTOLOGY O RDERABLES Performing Organization Address City/State/[facility] Co de Phone Number [facility] [place] [address] documented in this encounter Visit Diagnoses Not on filedocumented in this encounter Care Teams Assistant Teacher Primary Relationship Specialty Start Date End Date Olga Hoffman APRN [address] [place] [address] PCP - General Family Medicine 10/30/22 documented as of this encounter
--- OUTSIDE RECORDS SUMMARY | 2024-05-31 21:25 | XMS_ITS | Encounter Summary ---
[place] [address] Care Team Providers Care Lithography Contact Worker Name Role Phone Olga Hoffman APRN Primary Care Provider [phone] [phone] Reason for Referral * Consultation (Routine) - Authorized Specialty Diagnoses / Procedures Referred By Janak holland Referred To Contact Plastic Surgery Diagnoses Hypertrophy of breast GYNECOMASTIA Olga Hoffman APRN [address] [place] [address] [facility] Plastic Surg [address] [place] [phone] Referral ID Status Reason Start Date Expiration Date Visits Requested Visits Authorized [id number] Authorized Consult, Test & Treat PCP Updated and/or Approved 12/05/2023 06/06/2024 6 6 Encounter Details Date Type Department Care Team (Latest Contact Info) Description 12/11/2023 Transcribe Orders eDH Incoming Referrals [phone] Olga Hoffman APRN [address] [place] [address] Hypertrophy of breast Social History [...] health care facility (including now)? No 01/23/2023 Sex and Gender Information Value Date Recorded Sex Assigned at Not on file Gender Identity Not on file Sexual Orientation Not on file documented as of this encounter Plan of Treatment Upcoming Encounters Date Type Department Care Team (Late st Contact Info) Description 06/11/2024 9:30 AM EDT Office Visit Hematology/Oncology at [address] [phone] Rodriguez Fowler MD [facility] [place] [address] Sherry Cedillo APRN [address] [place] [address] DR HEMATOLOGY AND ONCOLOGY [place], [place] [address] 06/11/2024 10:00 AM EDT Infusion Hematology Oncology at [address] [phone] 06/25/2024 9:30 AM EDT Office Visit Hematology/Oncology at [address] [phone] Rodriguez Fowler MD [facility] [place] [address] Sherry Cedillo APRN [address] [place] [address] DR HEMATOLOGY AND ONCOLOGY [place], [place] [address] 06/25/2024 10:00 AM EDT Infusion Hematology Oncology at [address] [phone] Scheduled Referrals Name Type Priority Associated Diagnoses Orde r Schedule Referral to Plastic Surgery Outpatient Referral Routine Hypertrophy of breast Ordered: 12/11/2023 documented as of this encounter Visit Diagnoses Diagnosis Hypertrophy of breast documented in this encounter Care Teams Lithography Contact Worker Relationship Specialty Start Date End Date Olga Hoffman APRN [address] [place] [address] PCP - General Family Medicine 10/30/22 documented as of this encounter
--- OUTSIDE RECORDS SUMMARY | 2024-05-31 21:25 | XMS_ITS | Encounter Summary ---
Author Organization [facility] Address [facility] [place] [address] Care Team Providers Care Fruit Grader Name Role Phone Olga Hoffman APRN Primary Care Provider [phone] [phone] Encounter Details Date Type Department Care Team [...] 9:30 AM EDT Office Visit Hematology/Oncology at [address] [phone] Rodriguez Fowler MD [facility] [place] [address] [address] HEMATOLOGY AND ONCOLOGY [place], [place] [phone] 06/11/2024 10:00 AM EDT Infusion Hematology Oncology at [address] [phone] 06/25/2024 9:30 AM EDT Office Visit Hematology/Oncology at [address] [phone] Rodriguez Fowler MD [facility] [place] [address] [address] HEMATOLOGY AND ONCOLOGY [place], [place] [phone] 06/25/2024 10:00 AM EDT Infusion Hematology Oncology at [address] [phone] documented as of this encounter Visit Diagnoses Not on filedocumented in this encounter Care Teams Fruit Grader Relationship Specialty Start Date End Date Olga Hoffman APRN [address] [place] [address] PCP - General Family Medicine 10/30/22 documented as of this encounter
--- OUTSIDE RECORDS SUMMARY | 2024-05-31 21:25 | XMS_ITS | Encounter Summary ---
Author Organization [facility] [place] [address] Care Team Providers Care Valet Cashier Name Role Phone Olga Hoffman APRN Primary Care Provider +1 [phone] Encounter Details Date Type Department Care Team (Latest Contact Info) Description 01/06/2023 9:00 AM EDT Office Visit [place] [address] Faye Maxwell MD [facility] [place] [address] Type 2 diabetes mellitus with diabetic nephropathy, [...] Renal and Hypertension clinic Charles Nick 1975 [id number] Chief Complaint: This is a followup visit to the Renal and Hypertension clinic for this 41 y.o. year old man for follow up of membranous glomerulopathy in remission Mr Nick recently passed a first kidney stone. Retrograde pyelogram at [facility] showed no residual stone. CT showed [...] imunotherapy. Repeat biopsy in 2007 at [facility]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. ?? Obesity. ?? Hypertension, well controlled ?? DMII insulin-dependent. Variable control - states improved recently.. No evidence diabetic nephropathy. Neuropathy feet and hands without ulceration, Biltaeral cataracts, no retinopathy. identified complications ?? Obstructive sleep apnea: Uses CPAP with improvement tin daytime alertness and mood ?? Gepatic steatosis ?? 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 Father . Mother Habits: Non [...] very pleasant and interestingpatient CC: Olga Hoffman, YOCASTA @[email or web address]@ documented in this encounter Plan of Treatment Upcoming Encounters Date Type Department Care Team (Late st Contact Info) Description 06/11/2024 9:30 AM EDT Office Visit Hematology/Oncology at [address] [phone] Rodriguez Fowler MD [facility] [place] [address] [address] HEMATOLOGY AND ONCOLOGY [place], [place] [phone] 06/11/2024 10:00 AM EDT Infusion Hematology Oncology at [address] [phone] 06/25/2024 9:30 AM EDT Office Visit Hematology/Oncology at [address] [phone] Rodriguez Fowler MD [facility] [place] [address] Sherry Cedillo, [address] HEMATOLOGY AND ONCOLOGY [place], [place] [phone] 06/25/2024 10:00 AM EDT Infusion Hematology Oncology at [address] [phone] documented as of this encounter Procedures Procedure [...] EDT) Glucose 106 65 - 199 mg/dL [facility] Comment:Diabetes: >=200 mg/d L plus symptoms Blood Urea Nitrogen 7(L) 10 - 20 mg/dL [facility] Creatinine 0.92 0.80 - 1.50 mg/dL [facility] Sodium 140 135 - 145 mmol/L [facility] Potassium 4.5 3.5 - 5.0 mmol/L [facility] Comment: Please note: ??Patients with WBC >100,000 may have falsely elevated Potassium levels. ??For accurate Potassium quantification in these patients send serum separator tube (gold top) for subsequent determinations. ??Contact the Clinical Chemistry Laboratory if there are any questions. Chloride 103 98 - 107 mmol/L [facility] Carbon Dioxide 28 22 - 31 mmol/L [facility] Anion Gap 9 5 - 15 mmol/L [facility] Calcium 9.2 8.5 - 10.5 mg/dL [facility] Protein, Total 7.2 6.1 - 8.0 g/dL [facility] Albumin 4.1 3.2 - 5.2 g/dL [facility] Aspartate Aminotransferase 18 0 - 39 unit/L [facility] Alanine Aminotransferase 21 0 - 55 unit/L [facility] Alkaline Phosphatase 81 40 - 130 unit/L [facility] Bilirubin, Total 0.4 0.2 - 1.3 mg/dL [facility] Est Glomerular Filtration Rate 103 >=60 mL/min/1. 73 m?? [facility] Comment: This patient's estimated GFR [...] In Lab Faye Maxwell MD CHEMISTRY ORDERABLES [facility] [address] * Phosphorus (01/24/2023 10:42 AM EDT) Phosphorus 3.1 2.5 - 4.5 mg/dL [facility] Blood 01/24/2023 10:4 2 AM EDT 01/24/2023 10:51 AM EDT Narrative Resulting Agency Comment Spec In Lab Faye Maxwell MD CHEMISTRY ORDERABLES Performing Organization Address City/[facility]/ZIP Co de Phone Number [facility] [address] * Uric acid (01/24/2023 10:42 AM EDT) Uric Acid 5.7 3.5 - 8.5 mg/dL [facility] Blood 01/24/2023 10:4 2 AM EDT 01/24/2023 10:51 AM EDT Narrative Resulting Agency Comment Spec In Lab Faye Maxwell MD CHEMISTRY ORDERABLES Performing Organization Address City/[facility] Co de Phone Number [facility] [place] [address] * PTH (01/24/2023 10:42 AM EDT) Parathyroid Hormone 60 15 - 65 pg/mL [facility] Blood 01/24/2023 10:4 2 AM EDT 01/24/2023 10:51 AM EDT Narrative Resulting Agency Comment Spec In Lab Faye Maxwell MD CHEMISTRY ORDERABLES Performing Organization Address City/[facility]/ZIP Co de Phone Number [facility] [place] [address] * Protein/Creatinine Ratio, urine (01/06/2023 9:00 AM EDT) Creatinine, Urine 48 mg/dL [facility] Protein, Urine 7 0 - 12 mg/dL [facility] Protein / Creatinine Ratio, Urine 0.1 ratio [facility] Urine 01/06/2023 9:00 AM EDT 01/06/2023 10:45 AM EDT Narrative Resulting Agency Comment Spec In Lab Faye Maxwell MD URINE ORDERABLES [facility] [address] * Comprehensive metabolic panel (non-fasting) (01/06/2023 8:32 AM EDT) Glucose 142 65 - 199 mg/dL [facility] Comment:Diabetes: >=200 mg/d L plus symptoms Blood Urea Nitrogen 10 10 - 20 mg/dL [facility] Creatinine 1.03 0.80 - 1.50 mg/dL [facility] Sodium 140 135 - 145 mmol/L [facility] Potassium 4.4 3.5 - 5.0 mmol/L [facility] Comment: Please note: ??Patients with WBC >100,000 may have falsely elevated Potassium levels. ??For accurate Potassium quantification in these patients send serum separator tube (gold top) for subsequent determinations. ??Contact the Clinical Chemistry Laboratory if there are any questions. Chloride 100 98 - 107 mmol/L [facility] Carbon Dioxide 30 22 - 31 mmol/L [facility] Anion Gap 10 5 - 15 mmol/L [facility] Calcium 9.3 8.5 - 10.5 mg/dL [facility] Protein, Total 7.9 6.1 - 8.0 g/dL [facility] Albumin 4.5 3.2 - 5.2 g/dL [facility] Aspartate Aminotransferase 17 0 - 39 unit/L [facility] Alanine Aminotransferase 19 0 - 55 unit/L [facility] Alkaline Phosphatase 90 40 - 130 unit/L [facility] Bilirubin, Total 0.5 0.2 - 1.3 mg/dL [facility] Est Glomerular Filtration Rate 90 >=60 mL/min/1. 73 m?? [facility] Comment: This patient's estimated GFR [...] Maxwell MD CHEMISTRY ORDERABLES Performing Organization Address City/[facility]/ZIP Co de Phone Number [facility] [place] [address] * Phosphorus (01/06/2023 8:32 AM EDT) Phosphorus 2.8 2.5 - 4.5 mg/dL [facility] Blood 01/06/2023 8:32 AM EDT 01/06/2023 8:39 AM EDT Narrative Resulting Agency Comment Spec In Lab Faye Maxwell MD CHEMISTRY ORDERABLES Performing Organization Address City/[facility] Co de Phone Number [facility] [place] [address] * Uric acid (01/06/2023 8:32 AM EDT) Uric Acid 6.7 3.5 - 8.5 mg/dL [facility] Blood 01/06/2023 8:32 AM EDT 01/06/2023 8:39 AM EDT Narrative Resulting Agency Comment Spec In Lab Faye Maxwell MD CHEMISTRY ORDERABLES Performing Organization Address City/[facility]/ZIP Co de Phone Number [facility] [place] [address] * (ABNORMAL) PTH (01/06/2023 8:32 AM EDT) Parathyroid Hormone 121(H) 15 - 65 pg/mL [facility] Blood 01/06/2023 8:32 AM EDT 01/06/2023 8:39 AM EDT Narrative Resulting Agency Comment Spec In Lab Faye Maxwell MD CHEMISTRY ORDERABLES [facility] [place] [address] documented in this encounter Visit Diagnoses Diagnosis Type 2 diabetes mellitus with diabetic nephropathy, 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
--- OUTSIDE RECORDS SUMMARY | 2024-05-31 21:25 | XMS_ITS | Encounter Summary ---
Author Organization [facility] [place] [address] Care Team Providers Care Graphic Illustrator Name Role Phone Olga Hoffman APRN Primary Care Provider [phone] -[phone] Encounter Details Date Type Department Care Team (Late st Contact Info) Description 02/20/2024 Orders Only General Surgery at [facility] [place] [phone] Mira Solomon, RN Social History Tobacco Use [...] a skilled nursing (including now)? No 01/23/2023 Sex and Gender [...] AM EDT Office Visit Hematology/Oncology at [address] [phone] Rodriguez Fowler MD [facility] [place] [address] Sherry Cedillo APRN [address] [place] [address] DR HEMATOLOGY [place] [address] 06/11/2024 10:00 AM EDT Infusion Hematology Oncology at [address] [phone] 06/25/2024 9:30 AM EDT Office Visit Hematology/Oncology at [address] [phone] Rodriguez Fowler MD [facility] [place] [address] Sherry Cedillo APRN [address] [place] [address] DR HEMATOLOGY AND ONCOLOGY [place], [place] [phone] 06/25/2024 10:00 AM EDT Infusion Hematology Oncology at [address] [phone] documented as of this encounter Visit Diagnoses Not on filedocumented in this encounter Care Teams Graphic Illustrator Relationship Specialty Start Date End Date Olga Hoffman APRN [address] [place] [address] PCP - General Family Medicine 10/30/22 documented as of this encounter
--- OUTSIDE RECORDS SUMMARY | 2024-05-31 21:25 | XMS_ITS | Encounter Summary ---
Author Organization [facility] [place] [id number] Care Team Providers Care Tower Supervisor Name Role Phone Olga Hoffman APRN Primary Care Provider [phone] [phone] Reason for Visit * Consultation (Routine) - Closed Specialty Diagnoses / Procedures Referred By Janak t Referred To Contact Gastroenterology Diagnoses CHAN (nonalcoholic steatohepatitis) Eugenia Barrera APRN [facility] [place] [place] [address] [facility] [place] [address] Referral ID Status Reason Start Date Expiration Date V isits Requested Visits Authorized [id number] Closed Continuity of Care 01/24/2023 01/24/2024 1 1 Encounter Details Date Type Department Care Team (Late st Contact Info) Description 02/25/2023 9:00 AM EDT TH Visit (TeleHealth) [place] [address] [facility] [place] [address] CHAN (nonalcoholic steatohepatitis) Social History Tobacco Use [...] discussed today. Please reach out with a [employer] message if you have any questions or [...] service like Hello Fresh, [employer], Daily [place]. Can pick 1 or 2 days or [...] meals -Try a meal prep service like [employer], [employer], Daily [place]. Can pick 1 or 2 days or [...] AM EDT Office Visit Hematology/Oncology at [address] [phone] Rodriguez Fowler MD [facility] [place] [place] [address] Sherry Cedillo APRN [address] [place] [address] HEMATOLOGY AND ONCOLOGY [place], [place] [phone] 06/11/2024 10:00 AM EDT Infusion Hematology Oncology at [address] [phone] 06/25/2024 9:30 AM EDT Office Visit Hematology/Oncology at [address] [phone] Rodriguez Fowler MD [facility] [place] [place] [address] Sherry Cedillo APRN [address] [place] [address] DR [place]Y [place] [address] 06/25/2024 10:00 AM EDT Infusion Hematology Oncology at [address] [phone] Scheduled Referrals Name Type Priority Associated Diagnoses Orde r Schedule Referral to Nutrition Services Outpatient Referral Routine CHAN (nonalcoholic steatohepatitis) Ordered: 01/24/2023 documented as of this encounter Visit Diagnoses Diagnosis CHAN (nonalcoholic steatohepatitis) Other chronic nonalcoholic liver disease documented in this encounter Care Teams Tower Supervisor Relationship Specialty Start Date End Date Olga Hoffman APRN [address] [place] [address] PCP - General Family Medicine 10/30/22 documented as of this encounter
--- OUTSIDE RECORDS SUMMARY | 2024-05-31 21:25 | XMS_ITS | Encounter Summary ---
Author Organization [facility] Address [facility] [address] Care Team Providers Care Associate Vice President Name Role Phone Olga Hoffman APRN Primary Care Provider [phone] [phone] Encounter Details Date Type Department Care Team (Late st Contact Info) Description 01/12/2024 [place] [address] Provider, Scanning Social History Tobacco [...] in a long-term (including now)? No 01/23/2023 Sex and Gender Information Value Date Recorded Sex Assigned at Not on file Gender Identity Not on file Sexual Orientation Not on file documented as of this encounter Plan of Treatment Upcoming Encounters Date Type Department Care Team (Late st Contact Info) Description 06/11/2024 9:30 AM EDT Office Visit Hematology/Oncology at [address] [phone] Rodriguez Fowler MD [facility] [place] [address] Sherry Cedillo [address] HEMATOLOGY AND ONCOLOGY [place], [place] [address] 06/11/2024 10:00 AM EDT Infusion Hematology Oncology at [address] [phone] 06/25/2024 9:30 AM EDT Office Visit Hematology/Oncology at [address] [phone] Rodriguez Fowler MD [facility] [place] [address] Sherry Cedillo [address] HEMATOLOGY AND ONCOLOGY [place], [place] [address] 06/25/2024 10:00 AM EDT Infusion Hematology Oncology at [address] [phone] documented as of this encounter Procedures Procedure Name Priority Date/Time Associated Diagnosis Comments SURGICAL PATHOLOGY SCAN Routine 01/12/2024 documented in this encounter Results * Scan Doc: Surgical Pathology (01/12/2024) Historical Provider MD HEAD MGR SCAN EX T ORDR/RSLT documented in this encounter Visit Diagnoses Not on filedocumented in this encounter Care Teams Associate Vice President Relationship Specialty Start Date End Date Olga Hoffman APRN [address] [place] [address] PCP - General Family Medicine 10/30/22 documented as of this encounter
--- OUTSIDE RECORDS SUMMARY | 2024-05-31 21:25 | XMS_ITS | Encounter Summary ---
Author Organization Formerly [facility], Later [facility] Address [facility] [place] [address] Care Team Providers Care Wood Preserving Plant Laborer Name Role Phone Olga Hoffman APRN Primary Care Provider [phone] [phone] Encounter Details Date Type Department Care Team [...] 9:30 AM EDT Office Visit Hematology/Oncology at [address] [phone] Rodriguez Fowler MD [facility] [place] [address] [address] HEMATOLOGY AND ONCOLOGY [place], [place] [id number] 06/11/2024 10:00 AM EDT Infusion Hematology Oncology at [address] [phone] 06/25/2024 9:30 AM EDT Office Visit Hematology/Oncology at [address] [phone] Rodriguez Fowler MD [facility] [place] [address] [address] HEMATOLOGY AND ONCOLOGY [place], [place] [id number] 06/25/2024 10:00 AM EDT Infusion Hematology Oncology at [address] [phone] documented as of this encounter Visit Diagnoses Not on filedocumented in this encounter Care Teams Wood Preserving Plant Laborer Relationship Specialty Start Date End Date Olga Hoffman APRN [address] [place] [address] PCP - General Family Medicine 10/30/22 documented as of this encounter
--- OUTSIDE RECORDS SUMMARY | 2024-05-31 21:25 | XMS_ITS | Encounter Summary ---
Author Organization [facility] Address [facility] [place] [address] Care Team Providers Care Signal Wirer Name Role Phone Dalton Olga Arabella RUST Primary Care Provider [phone] [phone] Encounter Details Date Type Department Care Team [...] AM EDT Office Visit Hematology/Oncology at [address] [phone] Rodriguez Fowler MD [facility] [place] [address] Sherry Cedillo VOLTMETER OPERATOR [address] [place] [address] DR HEMATOLOGY AND ONCOLOGY [place], [place] [id number] 06/11/2024 10:00 AM EDT Infusion Hematology Oncology at [address] [phone] 06/25/2024 9:30 AM EDT Office Visit Hematology/Oncology at [address] [phone] Rodriguez Fowler MD [facility] [place] [place] [address] Sherry Cedillo APRN [address] [place] [address] HEMATOLOGY AND ONCOLOGY [place], [place] [id number] 06/25/2024 10:00 AM EDT Infusion Hematology Oncology at [address] [phone] documented as of this encounter Visit Diagnoses Not on filedocumented in this encounter Care Teams Signal Wirer Relationship Specialty Start Date End Date Olga Hoffman APRN [address] [place] [address] PCP - General Family Medicine 10/30/22 documented as of this encounter
--- OUTSIDE RECORDS SUMMARY | 2024-05-31 21:25 | XMS_ITS | Encounter Summary ---
Author Organization [facility] [place] [address] Care Team Providers Care Dough Panner Name Role Phone Olga Hoffman APRN Primary Care Provider [phone] [phone] Reason for Referral * Diagnostic Test (Routine) - Closed Specialty Diagnoses / Procedures Referred By Contac t Referred To Contact Radiology Diagnoses Duodenal adenocarcinoma Procedures NM PET CT Skull Base to [facility] Jaki Phillips [address] [place] [address] [place] [address] Referral ID Status Reason Start Date Expiration Date V isits Requested Visits Authorized [id number] Closed Specialty Service Requested 01/13/2024 07/14/2025 1 1 Reason for Visit * Diagnostic Test (Routine) - Closed Specialty Diagnoses / Procedures Referred By Contac t Referred To Contact Radiology Diagnoses Duodenal adenocarcinoma Procedures NM PET CT Skull Base to Mid-thigh Jaki Phillips [address] [place] [address] [place] [address] Referral ID Status Reason Start Date Expiration Date V isits Requested Visits Authorized [id number] Closed Specialty Service Requested 01/13/2024 07/14/2025 1 1 Encounter Details Date Type Department Care Team (Latest Contact Info) Description 01/27/2024 12:05 PM EDT Hospital Encounter [place] [address] Jaki Phillips, DO [address] [facility] [address] [place] [address] Duodenal adenocarcinoma Discharge Disposition: Home Social History [...] AM EDT Office Visit Hematology/Oncology at [address] [phone] Rodriguez Fowler MD [facility] [place] [place] [address] Sherry Cedillo APRN [address] [place] [address] DR HEMATOLOGY AND ONCOLOGY [place], [place] [id number] 06/11/2024 10:00 AM EDT Infusion Hematology Oncology at [address] [phone] 06/25/2024 9:30 AM EDT Office Visit Hematology/Oncology at [address] [phone] Rodriguez Fowler MD [facility] [place] [address] Sherry Cedillo APRN [address] [place] [address] DR HEMATOLOGY [place] [address] 06/25/2024 10:00 AM EDT Infusion Hematology Oncology at [address] [phone] documented as of this encounter Procedures Procedure Name Priority Date/Time Associated Diagnosis Comments NM PET CT SKULL BASE TO MID-THIGH ([facility]) Routine 01/27/2024 1:46 PM EDT Duodenal adenocarcinoma documented in this encounter Results * NM PET CT Skull Base to Mid-thigh (01/27/2024 1:46 PM EDT) [employer] WORKSTATION ID [id number] DH RAD Anatomical Region Laterality Modality Positron [...] who have questions please contact the health adult live in caregiver that requested your imaging first. ? 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 Electronically signed by: Juan Oneil [facility] ([phone]),at 01/29/2024 1:53 PM Jaki Phillips DO IMG [...] mCi documented in this encounter Care Teams Dough Panner Relationship Specialty Start Date End Date Olga Hoffman APRN [address] [place] [address] PCP - General Family Medicine 10/30/22 documented as of this encounter
--- OUTSIDE RECORDS SUMMARY | 2024-05-31 21:25 | XMS_ITS | Encounter Summary ---
Author Organization [facility] Address One [facility] [place] [address] Care Team Providers Care Goodwill Representative Name Role Phone Olga Hoffman APRN Primary Care Provider [phone] Encounter Details Date Type Department Care Team [...] AM EDT Office Visit Hematology/Oncology at [address] [phone] Rodriguez Fowler MD [facility] [address] HEMATOLOGY AND ONCOLOGY [place], [place] [phone] 06/11/2024 10:00 AM EDT Infusion Hematology Oncology at [address] [phone] 06/25/2024 9:30 AM EDT Office Visit Hematology/Oncology at [address] [phone] Rodriguez Fowler MD [facility] [place] [address] [address] HEMATOLOGY AND ONCOLOGY [place], [place] [id number] 06/25/2024 10:00 AM EDT Infusion Hematology Oncology at [address] [phone] documented as of this encounter Visit Diagnoses Not on filedocumented in this encounter Care Teams Goodwill Representative Relationship Specialty Start Date End Date Olga Hoffman APRN [address] [place] [address] PCP - General Family Medicine 10/30/22 documented as of this encounter
--- OUTSIDE RECORDS SUMMARY | 2024-05-31 21:25 | XMS_ITS | Encounter Summary ---
[place] [address] Care Team Providers Care Jumpbasting Machine Operator Name Role Phone Olga Hoffman APRN Primary Care Provider [phone] Reason for Referral * Consultation (Urgent) - Authorized Specialty Diagnoses / Procedures Referred By Janak holland Referred To Contact General Surgery Diagnoses Adenocarcinoma of duodenum Jaki Phillips DO [address] [place] [address] [address] [place] [address] [facility] Gen Surgery [address] [place] [phone] Referral ID Status Reason Start Date Expiration Date Visits Requested Visits Authorized [id number] Authorized Consult, Test & Treat PCP Updated and/or Approved 01/09/2024 01/08/2025 6 6 Encounter Details Date Type Department Care Team (Latest Contact Info) Description 01/14/2024 Transcribe Orders eDH Incoming Referrals [phone] Jaki Phillips DO [address] [place] [address] [address] [place] [address] Adenocarcinoma of duodenum Social History [...] AM EDT Office Visit Hematology/Oncology at [address] [phone] Rodriguez Fowler MD [facility] [place] [address] Sherry Cedillo APRN [address] [place] [address] DR HEMATOLOGY AND ONCOLOGY [place], [place] [id number] 06/11/2024 10:00 AM EDT Infusion Hematology Oncology at [address] [phone] 06/25/2024 9:30 AM EDT Office Visit Hematology/Oncology at [address] [phone] Rodriguez Fowler MD [facility] [place] [address] Sherry Cedillo APRN [address] [place] [address] DR HEMATOLOGY AND ONCOLOGY [place], [place] [address] 06/25/2024 10:00 AM EDT Infusion Hematology Oncology at [address] [phone] Scheduled Referrals Name Type Priority Associated Diagnoses Orde r Schedule Referral to General Surgery Outpatient Referral Urgent Adenocarcinoma of duodenum Ordered: 01/14/2024 documented as of this encounter Visit Diagnoses Diagnosis Adenocarcinoma of duodenum Malignant neoplasm of duodenum documented in this encounter Care Teams Jumpbasting Machine Operator Relationship Specialty Start Date End Date Olga Hoffman, BUILDING INSULATION INSTALLER [address] [place] [address] PCP - General Family Medicine 10/30/22 documented as of this encounter
--- OUTSIDE RECORDS SUMMARY | 2024-05-31 21:25 | XMS_ITS | Encounter Summary ---
Author Organization [facility] [place] [address] Care Team Providers Care Nurse Wound Name Role Phone Olga Hoffman APRN Primary Care Provider [phone] [phone] Encounter Details Date Type Department Care Team (Late st Contact Info) Description 03/14/2023 Telephone [place] [address] Gabriela Hyde Social History Tobacco [...] 9:30 AM EDT Office Visit Hematology/Oncology at [address] [phone] Rodriguez Fowler MD [facility] [place] [address] [address] [place] [address] 06/11/2024 10:00 AM EDT Infusion Hematology Oncology at [address] [phone] 06/25/2024 9:30 AM EDT Office Visit Hematology/Oncology at [address] [phone] Rodriguez Fowler MD [facility] [place] [address] Sherry Cedillo [address] [place] [address] 06/25/2024 10:00 AM EDT Infusion Hematology Oncology at [address] [phone] documented as of this encounter Visit Diagnoses Not on filedocumented in this encounter Care Teams Nurse Wound Relationship Specialty Start Date End Date Olga Hoffman APRN [address] [place] [address] PCP - General Family Medicine 10/30/22 documented as of this encounter
--- OUTSIDE RECORDS SUMMARY | 2024-05-31 21:25 | XMS_ITS | Encounter Summary ---
[place] [address] Care Team Providers Care Electrophonic Engineer Name Role Phone Olga Hoffman APRN Primary Care Provider [phone] [phone] Reason for Referral * Consultation (Routine) - Canceled Specialty Diagnoses / Procedures Referred By Janak holland Referred To Contact Vascular Surgery Diagnoses Cramp and spasm Olga Hoffman APRN [address] [place] [address] [facility] Vascular Surg [address] [place] [address] Referral ID Status Reason Start Date Expiration Date V isits Requested Visits Authorized [id number] Canceled Consult, Test & Treat 02/24/2024 02/23/2025 1 1 Encounter Details Date Type Department Care Team (Late st Contact Info) Description 02/24/2024 Transcribe Orders eDH Incoming Referrals [phone] Olga Hoffman APRN [address] [place] [address] Cramp and spasm Social History [...] in a residential (including now)? No 01/23/2023 Sex and Gender Information Value Date Recorded Sex Assigned at Not on file Gender Identity Not on file Sexual Orientation Not on file documented as of this encounter Plan of Treatment Upcoming Encounters Date Type Department Care Team (Late st Contact Info) Description 06/11/2024 9:30 AM EDT Office Visit Hematology/Oncology at [address] [phone] Rodriguez Fowler MD [facility] [place] [address] Sherry Cedillo APRN [address] [place] [address] DR HEMATOLOGY AND ONCOLOGY [place], [place] [id number] 06/11/2024 10:00 AM EDT Infusion Hematology Oncology at [address] [phone] 06/25/2024 9:30 AM EDT Office Visit Hematology/Oncology at [address] [phone] Rodriguez Fowler MD [facility] [place] [address] Sherry Cedillo APRN [address] [place] [address] DR HEMATOLOGY [place] [address] 06/25/2024 10:00 AM EDT Infusion Hematology Oncology at [address] [phone] Scheduled Referrals Name Type Priority Associated Diagnoses Orde r Schedule Referral to Vascular Surgery Outpatient Referral Routine Cramp and spasm Ordered: 02/24/2024 documented as of this encounter Visit Diagnoses Diagnosis Cramp and spasm documented in this encounter Care Teams Electrophonic Engineer Relationship Specialty Start Date End Date Olga Hoffman APRN [address] [place] [address] PCP - General Family Medicine 10/30/22 documented as of this encounter
--- OUTSIDE RECORDS SUMMARY | 2024-05-31 21:25 | XMS_ITS | Encounter Summary ---
[place] [address] Care Team Providers Care Cable Television Technician Name Role Phone Olga Hoffman APRN Primary Care Provider [phone] Reason for Referral * Diagnostic Test (Routine) - Closed Specialty Diagnoses / Procedures Referred By Contnina t Referred To Contact Radiology Diagnoses CHAN (nonalcoholic steatohepatitis) Procedures IR Biopsy Liver Percutaneous Esme Brown APRN [facility] [place] [address] [facility] [place] [address] Referral ID Status Reason Start Date Expiration Date V isits Requested Visits Authorized [id number] Closed Specialty Service Requested 12/25/2022 06/26/2024 1 1 Reason for Visit * Consultation (Routine) - Closed Specialty Diagnoses / Procedures Referred By Contnina holland Referred To Contact Gastroenterology Diagnoses Fatty liver Liver - fatty liver Olga Hoffman APRN [address] [address] [facility] [address] [place] [phone] Referral ID Status Reason Start Date Expiration Date V isits Requested Visits Authorized [id number] Closed Consult, Test & Treat PCP Updated and/or Approved 10/30/2022 10/30/2023 12 12 Encounter Details Date Type Department Care Team (Late st Contact Info) Description 12/25/2022 10:30 AM EDT Office [place] [address] Esme Brown APRN [facility] [place] [address] CHAN (nonalcoholic steatohepatitis) Social History Tobacco Use [...] HEPATOLOGY NEW PATIENT CONSULTATION Charles Nick 1975 SOFTWARE BUSINESS ANALYST: ESME BROWN APRN PCP: Olga Hoffman APRN [...] Had an EGD and colonscopy done at [facility] 2-3 weeks ago. Found a polyp [...] Allergen Reactions ??? Penicillins Rash SOCIAL HISTORY [facility], [place] 16 [place] ago. 3 kids age 14, 12, 11. 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 Alcohol: on holidays will [...] Brown APRN Section of Gastroenterology [place] [address] Copy: Olga Hoffman APRN [address] / [place] [address] documented in this encounter Procedure Notes * Esme Brown APRN - 12/25/2022 10:30 AM EDTAssociated Order(s): FIBROSCAN Procedure(s): FIBROSCAN Pre-Procedure Diagnose(s): CHAN (nonalcoholic steatohepatitis) [facility] Liver Fibrosis Assessment Report Indication: Elevated liver enzymes, suspected NAFLD Performed by: ESME BROWN APRN Procedure: Vibration Controlled Transient Elastography (VCTE) or Fibroscan [place] Protocol: Patient's identity, procedure and site were [...] 9:30 AM EDT Office Visit Hematology/Oncology at [address] [phone] Rodriguez Fowler MD [facility] [place] [address] Sherry Cedillo APRN [address] [place] [address] DR HEMATOLOGY AND ONCOLOGY [place], [place] [id number] 06/11/2024 10:00 AM EDT Infusion Hematology Oncology at [address] [phone] 06/25/2024 9:30 AM EDT Office Visit Hematology/Oncology at [address] [phone] Rodriguez Fowler MD [facility] [place] [address] Sherry Cedillo APRN [address] [place] [address] DR HEMATOLOGY AND ONCOLOGY [place], [place] [id number] 06/25/2024 10:00 AM EDT Infusion Hematology Oncology at [address] [phone] documented as of this encounter [...] CHAN (nonalcoholic steatohepatitis) HC DNA AB DS ([place]) Routine 12/25/2022 11:50 AM EDT CHAN (nonalcoholic steatohepatitis) COMPREHENSIVE METABOLIC PANEL Routine 12/25/2022 11:50 AM EDT CHAN (nonalcoholic steatohepatitis) [id number] Routine 12/25/2022 10:30 AM EDT CHAN (nonalcoholic [...] EDT) Hepatitis B Core Antibody Negative Negative [facility] Blood 12/25/2022 11:5 0 AM EDT 12/25/2022 12:13 PM EDT Narrative Resulting Agency Comment Spec In Lab Esme Brown APRN CHEMISTRY ORDERABL ES Performing Organization Address [facility] de Phone Number [facility] [place] [address] * Hepatitis B Surface Antibody (12/25/2022 11:50 AM EDT) Hepatitis B Surface Antibody, Quantitative <3.5 IU/L [facility] Comment: HepB Surface Ab Quant: Unvaccinated: < 8.5 IU/L Vaccinated: >= 11.5 IU/L Hepatitis B Surface Antibody Negative [facility] Comment: Patient is presumed to be not vaccinated or immune to HBV infection. Expected Results: Vaccinated: Positive Unvaccinated: Negative Blood 12/25/2022 11:5 0 AM EDT 12/25/2022 12:13 PM EDT Narrative Resulting Agency Comment Spec In Lab Esme Brown APRN CHEMISTRY ORDERABL ES Performing Organization Address [facility] Co de Phone Number [facility] [place] [address] * Hepatitis B Surface Antigen (12/25/2022 11:50 AM EDT) Hepatitis B Surface Antigen Negative Negative [facility] Blood 12/25/2022 11:5 0 AM EDT 12/25/2022 12:13 PM EDT Narrative Resulting Agency Comment Spec In Lab Esme A Bruce GENERAL DUTY NURSE CHEMISTRY ORDERABL ES Performing Organization Address City/[facility]/ZIP Co de Phone Number [facility] [place] [address] * Hepatitis C Antibody (12/25/2022 11:50 AM EDT) Hepatitis C Antibody Negative Negative [facility] Blood 12/25/2022 11:5 0 AM EDT 12/25/2022 12:13 PM EDT Narrative Resulting Agency Comment Spec In Lab Esme Brown GENERAL DUTY NURSE CHEMISTRY ORDERABL ES Performing Organization Address [facility]/ZIP Co de Phone Number [facility] [place] [address] * JENIFER Antibody Screen (12/25/2022 11:50 AM EDT) JENIFER Ab Screen Negative Negative [facility] Comment: This antinuclear antibody (JENIFER) screen is a qualitative test performed using a fluoroenzyme immunoassay on the [employer] 250 analyzer. This screen is designed to [...] performed by the Special Chemistry Laboratory at [facility] [place]. This change in testing location is associated with a change is testing method and reference intervals. Please review the results of this test in association with the posted reference intervals. dsDNA Ab <0.6 <=15.0 IU/mL [facility] Comment: <10 negative 10-15 [...] performed by the Special Chemistry Laboratory at [facility] [place]. This change in testing location is associated with a change is testing method and reference intervals. Please review the results of this test in association with the posted reference intervals. Blood 12/25/2022 11:5 0 AM EDT 12/26/2022 7:24 AM EDT Narrative Resulting Agency Comment Spec In Lab Esme Brown YOCASTA LAB SEND OUT ORDER DEDRA Performing Organization Address City/[facility] Co de Phone Number [facility] [place] [address] * Smooth Muscle Antibody (12/25/2022 11:50 AM EDT) Sm Muscle Ab (JANUARY) Negative Negative [facility] Comment: Negative: No further testing will be performed ADDITIONAL INFORMATION This test was developed and its performance characteristics determined by [facility] in a manner consistent with CLIA requirements. This test has not been cleared or approved by the U.S. Food and Drug Administration. Test Performed by: [facility] [place] [address] Dish Washer: Adam Gifford M.D. Ph.D.; CLIA# [id number] Blood 12/25/2022 11:5 0 AM EDT 12/25/2022 2:14 PM EDT Narrative Resulting Agency Comment Spec In Lab Esme Brown YOCASTA LAB SEND OUT ORDER DEDRA Performing Organization Address [facility] Co de Phone Number [facility] [place] [address] * Mitochondrial Antibody, M2 (12/25/2022 11:50 AM EDT) Mitochon Ab (JANUARY) <0.1 <0.1 (Negative) [facility] Comment: Test Performed by: [facility] [place] [address] Dish Washer: Adam Gifford M.D. Ph.D.; CLIA# [id number] Blood 12/25/2022 11:5 0 AM EDT 12/25/2022 2:14 PM EDT Narrative Resulting Agency Comment Spec In Lab Esme Brown APRN LAB SEND OUT ORDER DEDRA Performing Organization Address [facility] Co de Phone Number [facility] [place] [address] * Prothrombin Time (12/25/2022 11:50 AM EDT) Prothrombin Time 12.3 9.4 - 12.5 sec [facility] International Normalization Ratio 1.1 [facility] Comment: An INR <2.0 indicates [...] APRN HEMATOLOGY ORDERAB LES Performing Organization Address [facility] Co de Phone Number [facility] [place] [address] * (ABNORMAL) Comprehensive metabolic panel (non-fasting) (12/25/2022 11:50 AM EDT) Glucose 110 65 - 199 mg/dL [facility] Comment:Diabetes: >=200 mg/d L plus symptoms Blood Urea Nitrogen 8(L) 10 - 20 mg/dL [facility] Creatinine 0.96 0.80 - 1.50 mg/dL [facility] Sodium 139 135 - 145 mmol/L [facility] Potassium 3.7 3.5 - 5.0 mmol/L [facility] Comment: Please note: ??Patients with WBC >100,000 may have falsely elevated Potassium levels. ??For accurate Potassium quantification in these patients send serum separator tube (gold top) for subsequent determinations. ??Contact the Clinical Chemistry Laboratory if there are any questions. Chloride 100 98 - 107 mmol/L [facility] Carbon Dioxide 27 22 - 31 mmol/L [facility] Anion Gap 12 5 - 15 mmol/L [facility] Calcium 8.8 8.5 - 10.5 mg/dL [facility] Protein, Total 7.3 6.1 - 8.0 g/dL [facility] Albumin 4.2 3.2 - 5.2 g/dL [facility] Aspartate Aminotransferase 19 0 - 39 unit/L [facility] Alanine Aminotransferase 23 0 - 55 unit/L [facility] Alkaline Phosphatase 81 40 - 130 unit/L [facility] Bilirubin, Total 0.4 0.2 - 1.3 mg/dL [facility] Est Glomerular Filtration Rate 98 >=60 mL/min/1. 73 m?? [facility] Comment: This patient's estimated GFR [...] Lab Esme Brown APRN CHEMISTRY ORDERABL ES [facility] [place] [address] * [id number] (12/25/2022 10:30 AM EDT) Narrative Esme Brown APRN - 12/25/2022 10:30 AM EDT Esme Brown APRN ? 12/25/2022 ??5:04 PM [facility] Liver Fibrosis Assessment Report Indication: ?? Elevated liver enzymes, suspected NAFLD Performed by: ??ESME BROWN APRN Procedure: Vibration Controlled Transient Elastography (VCTE) or Fibroscan [place] Protocol: Patient's identity, procedure and site were [...] disease documented in this encounter Care Teams Cable Television Technician Relationship Specialty Start Date End Date Olga Hoffman APRN [address] [address] PCP - General Family Medicine 10/30/22 documented as of this encounter
--- OUTSIDE RECORDS SUMMARY | 2024-05-31 21:25 | XMS_ITS | Encounter Summary ---
Author Organization [facility] [place] [address] Care Team Providers Care Tying In Machine Operator Name Role Phone Olga Hoffman APRN Primary Care Provider [phone] Reason for Visit * Reason Comments Advice Only * Consultation (Routine) - Closed Specialty Diagnoses / Procedures Referred By Janak holland Referred To Contact Hematology and Oncology Diagnoses Polycythemia Olga Hoffman APRN [address] [place] [address] [facility] Hem Onc [address] [place] [address] Referral ID Status Reason Start Date Expiration Date V isits Requested Visits Authorized [id number] Closed Consult, Test & Treat PCP Updated and/or Approved 11/20/2022 11/20/2023 6 6 Encounter Details Date Type Department Care Team (Late st Contact Info) Description 01/24/2023 10:00 AM EDT Office Visit Hematology [place] [address] Veena Cunningham MD [facility] DR HEMATOLOGY [place] [address] Erythrocytosis; Microcytosis Social History Tobacco [...] Wright MD [facility] RAD MEDICATIONS Current Outpatient Medications [...] the Last Year: No ?? Lives in [place]1hr 15mts from [facility] ?? 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 Smoking: No No family [...] this patient's situation further. Veena Mckeon MD [facility] CC: YOCASTA Briones Kathryn H documented in this encounter Plan of Treatment Upcoming Encounters Date Type Department Care Team (Late st Contact Info) Description 06/11/2024 9:30 AM EDT Office Visit Hematology/Oncology at [address] [phone] Rodriguez Fowler MD [facility] [place] [address] [address] HEMATOLOGY AND ONCOLOGY [place], [place] [address] 06/11/2024 10:00 AM EDT Infusion Hematology Oncology at [address] [phone] 06/25/2024 9:30 AM EDT Office Visit Hematology/Oncology at [address] [phone] Rodriguez Fowler MD [facility] [place] [address] Sherry Cedillo [address] HEMATOLOGY [place] [address] 06/25/2024 10:00 AM EDT Infusion Hematology Oncology at [address] [phone] Scheduled Orders Name Type Priority Associated Diagnoses Orde r Schedule CBC (with Diff) Lab Routine Erythrocytosis Microcytosis Expected: 01/24/2023, Expires: 02/24/2023 documented as of this encounter Results * Iron and TIBC (01/24/2023 10:42 AM EDT) Pathologist [facility] Iron 67 45 - 160 mcg/dL [facility] TIBC 304 250 - 450 mcg/dL [facility] Iron Saturation 22 20 - 50 % [facility] Blood 01/24/2023 10:4 2 AM EDT 01/24/2023 10:51 AM EDT Narrative Resulting Agency Comment Spec In Lab Veena Cunningham MD CHEMISTRY ORDERA BLES Performing Organization Address City/[facility]/ZIP Co de Phone Number [facility] [address] * (ABNORMAL) Reticulocyte Count (01/24/2023 10:42 AM EDT) [facility] Reticulocyte % 1.0 0.7 - 2.6 % [facility] Retic Abs # 0.060 0.030 - 0.120 x10(6)/[facility]OR[facility] Immature Retic% 5.7 0.0 - 15.6 % [facility] Reticulated Hgb 27.7(L) 31.3 - 40.2 pg [facility] Blood 01/24/2023 10:4 2 AM EDT 01/24/2023 10:51 AM EDT Narrative Resulting Agency Comment Spec In Lab Veena Cunningham MD HEMATOLOGY ORDER DEDRA Performing Organization Address City/[facility]/ZIP Co de Phone Number [facility] [address] * Ferritin (01/24/2023 10:42 AM EDT) Pathologist [facility] Ferritin 113 30 - 400 ng/mL [facility] Comment: Pediatric reference ranges not verified at [facility], interpret with caution. Reference ranges for females greater than 50 years of age approach values for men, i.e., 30-400 ng/mL. Blood 01/24/2023 10:4 2 AM EDT 01/24/2023 10:51 AM EDT Narrative Resulting Agency Comment Spec In Lab Veena Cunningham MD CHEMISTRY MEHUL HURD [facility] [address] * JAK2 V617F, Exon12, and Other Non-V617F Mut (01/24/2023 10:42 AM EDT) Somatic JAK2 Result Negative [facility] Somatic JAK2 Interp JAK2 Somatic Variant [...] extracted from blood and analyzed with the zLense Myeloid sequencing assayTM. Amplicon-based library preparation, template preparation and chip-loading utilize the Parallel Universe, and sequencing is performed on the Red Stamp System. Reads from JAK2 exons 12-15 are analyzed for single nucleotide variants, deletions, and insertions. Base Calling and alignment is performed on the Jobyourlife Suite Jobyourlife Suite 5.12.0.Variant calling is performed on the Der Grü[place] Punkt Waybill Clerk version 5.14. LIMITATIONS AND DISCLAIMERS: ??The analytic [...] Genomics and Advanced Technology (CGAT) Laboratory at [facility]. It has not been cleared or approved by the FDA. The laboratory is regulated under CLIA as qualified to perform high-complexity testing. This test is used for clinical purposes. It should not be regarded as investigational or for research. [facility] Comment: [VERIFIED DATE]02.04.23 Verified By:Neptali Calixto, Mohan Franks Molecular Pathologist (Electronic Signature) Blood 01/24/2023 10:4 2 AM EDT 01/24/2023 1:39 PM EDT Narrative Resulting Agency Comment Spec In Lab Veena Cunningham MD MOLECULAR ORDERA BLES Performing Organization Address City/[facility]/ZIP Co de Phone Number [facility] [address] * Erythropoietin Level (01/24/2023 10:42 AM EDT) Erythropoietin (JANUARY) 11.8 2.6 - 18.5 mIU/mL [facility] Comment: Test Performed by: [place] [address] Shelter Monitor: Adam Gifford M.D. Ph.D.; CLIA# [id number] Blood 01/24/2023 10:4 2 AM EDT 01/24/2023 12:49 PM EDT Narrative Resulting Agency Comment Spec In Lab Veena Cunningham MD LAB SEND OUT ORD ERABLES Performing Organization Address City/[facility]/ZIP Co de Phone Number [facility] [address] documented in this encounter Visit Diagnoses Diagnosis Erythrocytosis Polycythemia, secondary Microcytosis Other abnormality of red blood cells documented in this encounter Care Teams Tying In Machine Operator Relationship Specialty Start Date End Date Olga Hoffman APRN [address] [place] [address] PCP - General Family Medicine 10/30/22 documented as of this encounter
--- OUTSIDE RECORDS SUMMARY | 2024-05-31 21:25 | XMS_ITS | Encounter Summary ---
Author Organization [facility] [address] Care Team Providers Care Regulatory Process Manager Name Role Phone Olga Hoffman APRN Primary Care Provider [phone] [phone] Reason for Referral * Consultation (Routine) - Closed Specialty Diagnoses / Procedures Referred By Janak t Referred To Contact Gastroenterology Diagnoses CHAN (nonalcoholic steatohepatitis) Eugenia Barrera APRN [facility] [place] [address] [facility] [place] [place] [address] Referral ID Status Reason Start Date Expiration Date V isits Requested Visits Authorized [id number] Closed Continuity of Care 01/24/2023 01/24/2024 1 1 Encounter Details Date Type Department Care Team (Late st Contact Info) Description 01/24/2023 9:00 AM EDT Office [place] [address] Eugenia Barrera APRN [facility] [place] [address] CHAN (nonalcoholic steatohepatitis) Social History Tobacco Use [...] lbs. Just got a puppy dog - citizen of [place], named Darlene, the [place] word for Fritz, taking her out onwalks [...] without imunotherapy. 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 ?? Obstructive sleep [...] Allergen Reactions ??? Penicillins Rash SOCIAL HISTORY [facility] [place] 3 kids age 14, 12, 11. 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 Alcohol: on holidays will have 1-2 drinks. [...] telehealth as hetravels a long ways to [facility]. We discussed what with diet, exercise and weight loss there can be regression of steatosis and fibrosis in the liver. He will continue to work on this and we will plan onfollowing up in 6 months with rechecking his liver enzymes at that time Plan: - Refer to communications technician to help with meal planning for CHAN, strategies for eating. - Follow up in 6 months with blood work. Eugenia Barrera APRN Section of Gastroenterology [place] [address] Copy: Olga Hoffman APRN [address] / [facility] [address] Time spent reviewing records prior to this [...] AM EDT Office Visit Hematology/Oncology at [address] [phone] Rodriguez Fowler MD [facility] [place] [address] [address] Cedillo [address] HEMATOLOGY AND ONCOLOGY [place], [place] [id number] 06/11/2024 10:00 AM EDT Infusion Hematology Oncology at [address] [phone] 06/25/2024 9:30 AM EDT Office Visit Hematology/Oncology at [address] [phone] Rodriguez Fowler MD [facility] [place] [address] [address] Cedillo [address] HEMATOLOGY AND ONCOLOGY [place], [place] [address] 06/25/2024 10:00 AM EDT Infusion Hematology Oncology at [address] [phone] Scheduled Orders Name Type Priority Associated Diagnoses [...] disease documented in this encounter Care Teams Regulatory Process Manager Relationship Specialty Start Date End Date Olga Hoffman APRN [address] [place] [address] PCP - General Family Medicine 10/30/22 documented as of this encounter
--- OUTSIDE RECORDS SUMMARY | 2024-05-31 21:25 | XMS_ITS | Encounter Summary ---
Author Organization [facility] Address [facility] [address] Care Team Providers Care Land Development Project Manager Name Role Phone Olga Hoffman APRN Primary Care Provider [phone] Encounter Details Date Type Department Care Team (Late st Contact Info) Description 01/26/2024 12:05 AM EDT Ancillary Procedure Radiology Library at [facility] [place] [address] Olga Hoffman APRN [address] [place], [place] [id number] Social History Tobacco Use Types Packs/Day Years [...] 9:30 AM EDT Office Visit Hematology/Oncology at [address] [phone] Rodriguez Fowler MD [facility] [place] [address] HEMATOLOGY AND ONCOLOGY [place], [place] [address] 06/11/2024 10:00 AM EDT Infusion Hematology Oncology at [address] [phone] 06/25/2024 9:30 AM EDT Office Visit Hematology/Oncology at [address] [phone] Rodriguez Fowler MD [facility] [place] [address] HEMATOLOGY [place] [address] 06/25/2024 10:00 AM EDT Infusion Hematology Oncology at [address] [phone] documented as of this encounter Procedures Procedure Name Priority Date/Time Associated Diagnosis Comments FILM LIBRARY STORAGE ONLY MR PELVIS Routine 01/26/2024 12:05 AM EDT documented in this encounter Results * Film Library- Storage Only MR Pelvis (01/26/2024 12:05 AM EDT) Narrative ITA - 01/27/2024 10:32 AM EDT This exam is auto-finalizing. It's purpose is for storage only. Olga Hoffman APRN IMMer FILM LIBRARY ORDERABLES Performing Organization Address City/State/[facility] Co de Phone Number [place], [place] documented in this encounter Visit Diagnoses Not on filedocumented in this encounter Care Teams Land Development Project Manager Relationship Specialty Start Date End Date Olga Hoffman APRN [address] [place] [address] PCP - General Family Medicine 10/30/22 documented as of this encounter
--- OUTSIDE RECORDS SUMMARY | 2024-05-31 21:25 | XMS_ITS | Encounter Summary ---
Author Organization Formerly [facility], Later [facility] Address One [facility] [place] [address] Care Team Providers Care Light Technician Name Role Phone Olga Hoffman APRN Primary Care Provider [phone] Encounter Details Date Type Department Care Team [...] 9:30 AM EDT Office Visit Hematology/Oncology at [address] [phone] Rodriguez Fowler MD [facility] [place] [address] [address] HEMATOLOGY AND ONCOLOGY [place], [place] [phone] 06/11/2024 10:00 AM EDT Infusion Hematology Oncology at [address] [phone] 06/25/2024 9:30 AM EDT Office Visit Hematology/Oncology at [address] [phone] Rodriguez Fowler MD [facility] [place] [address] [address] HEMATOLOGY AND ONCOLOGY [place], [place] [phone] 06/25/2024 10:00 AM EDT Infusion Hematology Oncology at [address] [phone] documented as of this encounter Visit Diagnoses Not on filedocumented in this encounter Care Teams Light Technician Relationship Specialty Start Date End Date Olga Hoffman APRN [address] [place] [address] PCP - General Family Medicine 10/30/22 documented as of this encounter
--- OUTSIDE RECORDS SUMMARY | 2024-05-31 21:25 | XMS_ITS | Encounter Summary ---
Author Organization Formerly [facility] [place] [address] Care Team Providers Care Mercury Cracking Tester Name Role Phone Olga Hoffman APRN Primary Care Provider [phone] Reason for Visit * Reason Comments Establish Care * Consultation (Urgent) - Authorized Specialty Diagnoses / Procedures Referred By Janak holland Referred To Contact General Surgery Diagnoses Adenocarcinoma of duodenum Jaki Phillips, DO [address] [place] [address] [place] [address] [facility] Gen Surgery [place] [address] Referral ID Status Reason Start Date Expiration Date Visits Requested Visits Authorized [id number] Authorized Consult, Test & Treat PCP Updated and/or Approved 01/09/2024 01/08/2025 6 6 Encounter Details Date Type Department Care Team (Late st Contact Info) Description 02/03/2024 1:00 PM EDT [place] [address] Rudi Hernandez MD [facility] [place] [address] Duodenal cancer; Class 2 severe [...] 1,000 mg Tablet Social history: Originally from [place] Non-smoker Lives with partner and 2 dogs 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 No evidence pulmonary embolism, thoracic aortic dissection or aneurysm. 2. No acute pulmonary process 3. Question of mild wall thickening in the small bowel which may represent enteritis. Please correlate clinically MR abdomen 01/26/2024 Outside read from [facility] 1. 2 cm mass seen in the descending duodenum. 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 2. 5 mm nodule along the posterior wall of the loop of small bowel in the central abdomen. This maysimply be enteric content versus mass. 3. No evidence of abdominal metastatic disease MR pelvis 01/1324 Outside read from [facility] Impression: 1. Questionable of proximal sigmoid [...] fatty liver disease, type [facility], with a newly diagnosed duodenal [...] prefers that this be done locally at [facility]. I will place an external order [...] AM EDT Office Visit Hematology/Oncology at [address] [phone] Rodriguez Fowler MD [facility] [place] [address] [address] HEMATOLOGY AND ONCOLOGY [place], [place] [phone] 06/11/2024 10:00 AM EDT Infusion Hematology Oncology at [address] [phone] 06/25/2024 9:30 AM EDT Office Visit Hematology/Oncology at [address] [phone] Rodriguez Fowler MD [facility] [place] [address] [address] HEMATOLOGY AND ONCOLOGY [place], [place] [phone] 06/25/2024 10:00 AM EDT Infusion Hematology Oncology at [address] [phone] documented as of this encounter Procedures Procedure Name Priority Date/Time Associated Diagnosis Comments CEA Routine 02/03/2024 2:28 PM EDT Duodenal cancer documented in this encounter Results * CEA (02/03/2024 2:28 PM EDT) Carcinoembryonic Antigen 1.4 <=3.8 ng/mL [facility] Comment: Reference range: ??(20-69 years): [...] Hernandez MD CHEMISTRY ORDERABLES [facility] [place] [address] documented in this encounter Visit Diagnoses Diagnosis Duodenal cancer Malignant neoplasm of duodenum Class 2 severe obesity with serious comorbidity and body mass index (BMI) of 37.0 to 37.9 in adult, unspecified obesity type documented in this encounter Care Teams Mercury Cracking Tester Relationship Specialty Start Date End Date Olga Hoffman APRN [address] [place] [address] PCP - General Family Medicine 10/30/22 documented as of this encounter
--- OUTSIDE RECORDS SUMMARY | 2024-05-31 21:25 | XMS_ITS | Encounter Summary ---
Author Organization Formerly [facility] [place] [address] Care Team Providers Care Inside Sales Manager Name Role Phone Olga Hoffman APRN Primary Care Provider [phone] Encounter Details Date Type Department Care Team (Late st Contact Info) Description 12/26/2022 [place] [address] Tejsa Henao PA [facility] [place] [address] Social History Tobacco Use Types Packs/Day Years [...] 9:30 AM EDT Office Visit Hematology/Oncology at [address] [phone] Rodriguez Fowler MD [facility] [place] [place] [address] Sherry Cedillo BRICKLAYER TENDER [address] [place] [address] DR HEMATOLOGY [place] [address] 06/11/2024 10:00 AM EDT Infusion Hematology Oncology at [address] [phone] 06/25/2024 9:30 AM EDT Office Visit Hematology/Oncology at [address] [phone] Rodriguez Fowler MD [facility] [place] [address] Sherry Cedillo APRN [address] [place] [address] DR HEMATOLOGY AND ONCOLOGY [place], [place] [address] 06/25/2024 10:00 AM EDT Infusion Hematology Oncology at [address] [phone] documented as of this encounter Visit Diagnoses Not on filedocumented in this encounter Care Teams Inside Sales Manager Relationship Specialty Start Date End Date Olga Hoffman APRN [address] [place] [address] PCP - General Family Medicine 10/30/22 documented as of this encounter
--- OUTSIDE RECORDS SUMMARY | 2024-05-31 21:26 | XMS_ITS | Encounter Summary ---
Author Organization [facility] [place] [address] Care Team Providers Care Full Stack Software Developer Name Role Phone MartinezElke Alexa RUST Primary Care Provider Reason for Visit * Reason Onset Date Comments Other 02/19/2011 inform pt of uri ne protein result Encounter Details Date Type Department Care Team (Late st Contact Info) Description 02/19/2011 Telephone [place] [address] Faye Maxwell MD [facility] [place] [address] Other (inform pt of urine protein result) [...] 9:30 AM EDT Office Visit Hematology/Oncology at [address] [phone] Rodriguez Fowler MD [facility] [place] [address] [address] HEMATOLOGY AND ONCOLOGY [place], [place] [phone] 06/11/2024 10:00 AM EDT Infusion Hematology Oncology at [address] [phone] 06/25/2024 9:30 AM EDT Office Visit Hematology/Oncology at [address] [phone] Rodriguez Fowler MD [facility] [place] [address] Sherry Cedillo, [address] HEMATOLOGY AND ONCOLOGY [place], [place] [phone] 06/25/2024 10:00 AM EDT Infusion Hematology Oncology at [address] [phone] documented as of this encounter Visit Diagnoses Not on filedocumented in this encounter Care Teams Full Stack Software Developer Relationship Specialty Start Date End Date Elke Martinez APRN [address] [place], [place] [id number] PCP - General 08/07/10 03/03/16 documented as of this encounter
--- OUTSIDE RECORDS SUMMARY | 2024-05-31 21:26 | XMS_ITS | Encounter Summary ---
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 year old woman with a diagnosis of membranous nephropathy presenting with hematuria and NS in 2006 and underwent spontaneous remission without imunotherapy. He underwent biopsy in 2007 at [facility] which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 Additional PMH: Morbid obesity, depression, anxiety Today c/o sudden 15lb weight gain over past month.. Some ankle swelling. Feels ired, but not dyspneic. No orthopnea, No swelling hands or fACE, NO HEMATuria, no rash, joint pain or jaundice. No new meds Reports his father, who lives in [place], has recently developed proteinuria and edema. Father [...] AM EDT Office Visit Hematology/Oncology at [address] [phone] Rodriguez Fowler MD [facility] [place] [address] [address] HEMATOLOGY AND ONCOLOGY [place], [place] [phone] 06/11/2024 10:00 AM EDT Infusion Hematology Oncology at [address] [phone] 06/25/2024 9:30 AM EDT Office Visit Hematology/Oncology at [address] [phone] Rodriguez Fowler MD [facility] [place] [place] [address] Sherry Cedillo MATTRESS RENOVATOR [address] [place] [address] DR HEMATOLOGY AND ONCOLOGY [place], [place] [phone] 06/25/2024 10:00 AM EDT Infusion Hematology Oncology at [address] [phone] documented as of this encounter Procedures Procedure [...] 1:14 PM EDT) Creatinine, Urine 210 mg/dL MISTYNER MILLENNIUM Protein, Urine 122(H) 0 - 12 mg/dL [facility] MILLENNIUM Protein / Creatinine Ratio, Urine 0.6 ratio [facility] MILLENNIUM Urine specimen (specimen) 05/27/2012 1:14 PM EDT 05/27/2012 1:19 PM EDT Narrative Resulting Agency Comment Spec In Lab Faye Maxwell MD URINE ORDERABLES C[facility]STO ESCOBARIUM * DIFFERENTIAL, AUTOMATED (05/27/2012 1:08 PM EDT) Neutrophil % 68.7 34.0 - 71.0 % [facility]O MILLENNIUM Neutrophil Absolute 5.94 1.50 - 6.30 [...] MD HEMATOLOGY ORDERABLE S Performing Organization Address [facility] Co de Phone Number [facility] MILLENNIUM * Albumin (05/27/2012 1:08 PM EDT) Pathologist [facility] Albumin 3.9 3.2 - 5.2 gm/dL [facility] MILLEN[facility]UM Blood specimen (specimen) 05/27/2012 1:08 PM EDT 05/27/2012 1:16 PM EDT Narrative Resulting Agency Comment Spec In Lab Faye Maxwell MD CHEMISTRY ORDERABLES Performing Organization Address [facility] Co de Phone Number [facility] MILLENNIUM * Basic metabolic panel (05/27/2012 1:08 PM EDT) Glucose 94 60 - 199 mg/dL CERNER MILLENNIUM Comment:Diabetes: >=200 mg/d L plus symptoms Blood Urea Nitrogen 11 10 - 20 mg/dL CERNER MILLENNIUM Creatinine 0.97 0.80 - 1.50 mg/dL CERNER MILLENNIUM Comment: Please note that the pediatric reference intervals supplied above were not validated at [facility]. 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
--- OUTSIDE RECORDS SUMMARY | 2024-05-31 21:26 | XMS_ITS | Encounter Summary ---
Author Organization [facility] [place] [address] Care Team Providers Care Slusher Operator Name Role Phone Elke Martinez APRN Primary Care Provider [phone] Reason for Visit * Reason Comments Other membranous glomerulo shahram Encounter Details Date Type Department Care Team (Latest Contact Info) Description 02/14/2011 11:00 AM EDT Office Visit [place] [address] Faye Maxwell MD [facility] [place] [address] CKD (chronic kidney disease) stage 3, GFR [...] Renal and Hypertension clinic Charles Nick 1975 [id number] Chief Complaint: This is a followup visit to the Renal and Hypertension clinic for this 35 y.o. year old woman with a diagnosis of biopsy-proven membranous glomerulopathy presenting with NS and intermittent gross hematuria in 2002. He was not treated with immunosupression. 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 History of Present [...] CC: ELKE MARTINEZ APRN [address] [place] [address] documented in this encounter Plan of Treatment Upcoming Encounters Date Type Department Care Team (Late st Contact Info) Description 06/11/2024 9:30 AM EDT Office Visit Hematology/Oncology at [address] [phone] Rodriguez Fowler MD [facility] [place] [address] [address] HEMATOLOGY AND ONCOLOGY [place], [place] [phone] 06/11/2024 10:00 AM EDT Infusion Hematology Oncology at [address] [phone] 06/25/2024 9:30 AM EDT Office Visit Hematology/Oncology at [address] [phone] Rodriguez Fowler MD [facility] [address] [address] HEMATOLOGY AND ONCOLOGY [place], [place] [phone] 06/25/2024 10:00 AM EDT Infusion Hematology Oncology at [address] [phone] documented as of this encounter Procedures Procedure [...] In Lab Faye Maxwell MD URINE ORDERABLES [facility] * Albumin (05/27/2012 1:08 PM EDT) Albumin 3.9 3.2 - 5.2 gm/dL CRISTO ESCOBARIUM Blood specimen (specimen) 05/27/2012 1:08 PM EDT 05/27/2012 1:16 PM EDT Narrative Resulting Agency Comment Spec In Lab Faye Maxwell MD CHEMISTRY ORDERABLES [facility] ESCOBARIUM * Basic metabolic panel (05/27/2012 1:08 PM EDT) Glucose 94 60 - 199 mg/dL [facility]ERNER MILLENNIUM Comment:Diabetes: >=200 mg/d L plus symptoms Blood Urea Nitrogen 11 10 - 20 mg/dL CERNER MILLENNIUM Creatinine 0.97 0.80 - 1.50 mg/dL CERNER MILLENNIUM Comment: Please note that the pediatric reference intervals supplied above were not validated at [facility]. Results from pediatric patients should be interpreted [...] diabetic kidney disease. References: http://nkdep.nih.gov/resources/NKDEP_Suggestn4Labs_0606_508.pdf http://www.kidney.org/professionals/kls/pdf/faq_gfr.pdf Timothy Liu, Trinity NA, Emeterio AK, Biju TS, Jamila AD, Krishna AUDRA. Relative performance of the MDRD and CKD-EPI equations for estimating glomerular filtration rate among patients with varied clinical presentations. Clin J Am Soc Nephrol;6:1963-72. Blood specimen (specimen) 05/27/2012 1:08 PM EDT 05/27/2012 1:16 PM EDT Narrative Resulting Agency Comment Spec In Lab Faye Maxwell MD CHEMISTRY ORDERABLES Performing Organization Address City/[facility] Co de Phone Number CRISTO [id number] * (ABNORMAL) Protein/Creatinine Ratio, urine (02/14/2011 2:15 PM EDT) Creatinine, Urine 134 mg/dL CERNER MILLENNIUM Protein, Urine 65(H) 0 - 12 mg/dL CERNER MILLENNIUM Protein / Creatinine Ratio, Urine 0.5 ratio CERNER MILLENNIUM Urine specimen (specimen) 02/14/2011 2:15 PM EDT 02/14/2011 3:00 PM EDT Faye Maxwell MD URINE ORDERABLES C[facility]STO [id number] * Albumin (02/14/2011 12:21 PM EDT) Albumin [...] AM EDT Faye Maxwell MD CHEMISTRY ORDERABLES CERDENA MILLENNIUM * (ABNORMAL) CBC (with Diff) (02/14/2011 [...] Maxwell MD CHEMISTRY ORDERABLES Performing Organization Address City/State/[facility] Co de Phone Number CRISTO MIGUEL * Albumin (02/14/2011 10:02 AM EDT) Albumin 4.1 3.2 - 5.2 gm/dL CRISTO MIGUEL Blood specimen (specimen) 02/14/2011 10:02 AM EDT 02/14/2011 10:06 AM EDT Faye Maxwell MD CHEMISTRY ORDERABLES Performing Organization Address City/State/[facility] Co de Phone Number CRISTO MIGUEL documented in this encounter Visit Diagnoses Diagnosis CKD (chronic kidney disease) stage 3, GFR 30-59 ml/min- Primary Chronic kidney disease, Stage III (moderate) Hypertension Unspecified essential hypertension 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
--- OUTSIDE RECORDS SUMMARY | 2024-05-31 21:26 | XMS_ITS | Encounter Summary ---
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 He underwent biopsy in 2007 at [facility] which showedresolving membranous GN. Currently in remission. [...] NSAIDs Reports his father, who lives in [place], has proteinuria and edema. Father is not [...] AM EDT Office Visit Hematology/Oncology at [address] [phone] Rodriguez Fowler MD [facility] [place] [address] Sherry Cedillo APRN [address] [place] [address] DR HEMATOLOGY [place] [address] 06/11/2024 10:00 AM EDT Infusion Hematology Oncology at [address] [phone] 06/25/2024 9:30 AM EDT Office Visit Hematology/Oncology at [address] [phone] Rodriguez Fowler MD [facility] [place] [address] Sherry Cedillo APRN [address] [place] [address] DR HEMATOLOGY [place] [address] 06/25/2024 10:00 AM EDT Infusion Hematology Oncology at [address] [phone] documented as of this encounter [...] intervals supplied above were not validated at [facility]. Results from pediatric patients should be interpreted [...] LABORATORY Est Glomerular Filtration Rate >60 >=60 [facility] Comment: This estimated GFR (eGFR) [...] the following links into your internet browser. [email or web address] Blood specimen (specimen) 08/16/2016 2:14 PM EST 08/16/2016 2:19 PM EST Narrative Resulting Agency Comment Spec In Lab Faye Maxwell MD [place] [address] documented in this encounter Visit Diagnoses Diagnosis Proteinuria Obesity Obesity, unspecified Hypertension secondary to other renal disorders documented in this encounter Care Teams Primer Powder Blender Wet Relationship Specialty Start Date End Date Jyoti Martinez APRN [address] [place] [address] PCP - General 08/07/10 03/03/16 documented as of this encounter
--- OUTSIDE RECORDS SUMMARY | 2024-05-31 21:26 | XMS_ITS | Encounter Summary ---
Author Organization [facility] [place] [address] Care Team Providers Care Community Relations Director Name Role Phone Dariana Méndez MD Primary Care Provider [phone] Encounter Details Date Type Department Care Team (Late st Contact Info) Description 09/30/2019 Telephone Nephrology [place] [phone] Shahida Joshi Social History Tobacco Use Types [...] AM EDT Office Visit Hematology/Oncology at [address] [phone] Rodriguez Fowler MD [facility] [place] [address] Sherry Cedillo APRN [address] [place] [address] DR HEMATOLOGY AND ONCOLOGY [place], [place] [phone] 06/11/2024 10:00 AM EDT Infusion Hematology Oncology at [address] [phone] 06/25/2024 9:30 AM EDT Office Visit Hematology/Oncology at [address] [phone] Rodriguez Fowler MD [facility] [place] [address] Sherry Cedillo APRN [address] [place] [address] DR HEMATOLOGY AND ONCOLOGY [place], [place] [phone] 06/25/2024 10:00 AM EDT Infusion Hematology Oncology at [address] [phone] documented as of this encounter Visit Diagnoses Not on filedocumented in this encounter Care Teams Community Relations Director Relationship Specialty Start Date End Date Dariana Méndez MD [address] [place] [address] PCP - General Family Medicine 07/16/16 10/29/22 documented as of this encounter
--- OUTSIDE RECORDS SUMMARY | 2024-05-31 21:26 | XMS_ITS | Encounter Summary ---
Author Organization [facility] [place] [address] Care Team Providers Care Supervisor Instant Potato Processing Name Role Phone Dariana Méndez MD Primary Care Provider [phone] Encounter Details Date Type Department Care Team (Latest Contact Info) Description 12/22/2018 9:00 AM EDT Laboratory Appointment Lab [address] [place] [address] Proteinuria, unspecified type; Obesity, unspecified classification, unspecified [...] AM EDT Office Visit Hematology/Oncology at [address] [phone] Rodriguez Fowler MD [facility] [address] Sherry Cedillo, YOCASTA [address] [place] [address] DR [place] [address] 06/11/2024 10:00 AM EDT Infusion Hematology Oncology at [address] [phone] 06/25/2024 9:30 AM EDT Office Visit Hematology/Oncology at [address] [phone] Rodriguez Fowler MD [facility] [place] [address] Sherry Cedillo APRN [address] [place] [address] DR HEMATOLOGY AND ONCOLOGY [place], [place] [id number] 06/25/2024 10:00 AM EDT Infusion Hematology Oncology at [address] [phone] documented as of this encounter Procedures Procedure [...] Differential, Automated (12/22/2018 9:49 AM EDT) Pathologist [facility] Neutrophil % 71.7 % [facility] Neutrophil Absolute 5.01 1.70 - 6.10 x10(3)/[facility] LAB[facility] Lymph % 21.5 % [facility] Lymphocytes Abs 1.5 0.9 - 3.2 x10(3)/[facility] LABOR[facility] Monocyte % 4.7 % [facility] Monocyte Abs 0.3 0.3 - 0.9 x10(3)/[facility]OR[facility] Eos % 1.4 % [facility] Eosinophils Abs 0.1 0.0 - 0.4 x10(3)/[facility]OR[facility] Basophil % 0.6 % [facility] Baso Absolute 0.0 0.0 - 0.1 x10(3)/[facility] LABOR[facility]ORY Immature Gran % 0.10 % [facility] Comment: Immature granulocytes(IG's)percentage and absolute count will include metamyelocytes, myelocytes, and promyelocytes. Blood smears from CBCs yielding IG's will be scanned manually for concordance. If this scan disagrees with the automated IG or if promyelocytes are noted, a manual differential will be performed. Immature Gran Absolute 0.01 0.00 - 0.04 x10(3)/[facility] LABOR[facility] Blood specimen (specimen) 12/22/2018 9:49 AM EDT 12/22/2018 10:01 AM EDT Narrative Resulting Agency Comment Spec In Lab Faye Maxwell MD HEMATOLOGY ORDERABLE S [facility] [place] [address] * (ABNORMAL) Hemogram (12/22/2018 9:49 AM EDT) White Blood Cell 7.0 4.0 - 9.5 x10(3)/ L [facility] Red Blood Cell 6.09(H) 4.58 - 5.54 x10(6)/ L [facility] Hemoglobin 15.2 13.7 - 16.5 gm/dL [facility] Hematocrit 47.0 40.5 - 48.5 % [facility] Mean Cell Volume 77.2(L) 82.9 - 93.[address] [facility] Mean Cell Hemoglobin 25.0(L) 27.5 - 32.[address] [facility] Mean Cell Hemoglobin Concentration 32.3 32.0 - 35.7 gm/dL [facility] Platelet 163 145 - 357 x10(3)/[facility] RDW Standard Deviation 40.2 36.0 - 45.0 [facility]ORY RDW coefficient of variation 14.7(H) 11.4 - 13.8 % [facility] Mean Platelet Volume 11.3 7.6 - 12.9 [facility] NRBC% auto 0.0 % [facility] NRBC Absolute 0.000 0.000 - 0.000 x10(3)/[facility] Blood specimen (specimen) 12/22/2018 9:49 AM EDT 12/22/2018 10:01 AM EDT Narrative Resulting Agency Comment Spec In Lab Faye Maxwell MD HEMATOLOGY ORDERABLE S [facility] [place] [address] * (ABNORMAL) Basic Metabolic Panel (non-fasting) (12/22/2018 9:49 AM EDT) Glucose 409(H) 65 - 199 mg/dL [facility] Comment:Diabetes: >=200 mg/d L plus symptoms Blood Urea Nitrogen 8(L) 10 - 20 mg/dL [facility] Creatinine 0.85 0.80 - 1.50 mg/dL [facility] Sodium 134(L) 135 - 145 mmol/L [facility] [...] mmol/L [facility] Anion Gap 11 5 - 15 mmol/L [facility] Calcium 8.9 8.5 - 10.5 mg/dL [facility] Est Glomerular Filtration Rate 106 >=60 mL/min/1. 73 m?? [facility] Comment: The eGFR was calculated using the CKD-EPI equation. As with all creatinine based estimates of kidney function, eGFR values calculated with the CKD-EPI equation are not accurate in patients with acute kidney failure, extremes of body mass or the acutely ill. http://[employer]/DHMCnkf eGFR 123 >=60 mL/min/1. 73 m?? [facility] Comment: The eGFR was calculated using the CKD-EPI equation. As with all creatinine based estimates of kidney function, eGFR values calculated with the CKD-EPI equation are not accurate in patients with acute kidney failure, extremes of body mass or the acutely ill. http://[employer]/DHMCnkf Blood specimen (specimen) 12/22/2018 9:49 AM EDT 12/22/2018 10:01 AM EDT Narrative Resulting Agency Comment Spec In Lab Faye Maxwell MD CHEMISTRY ORDERABLES [facility] [address] * Albumin Level (12/22/2018 9:49 AM EDT) Albumin 3.7 3.2 - 5.2 gm/dL [facility] Blood specimen (specimen) 12/22/2018 9:49 AM EDT 12/22/2018 10:01 AM EDT Narrative Resulting Agency Comment Spec In Lab Faye Maxwell MD CHEMISTRY ORDERABLES Performing Organization Address City/[facility]/[place] [address] * Uric acid (12/22/2018 9:49 AM EDT) Uric Acid 4.0 3.5 - 8.5 mg/dL [facility] Blood specimen (specimen) 12/22/2018 9:49 AM EDT 12/22/2018 10:01 AM EDT Narrative Resulting Agency Comment Spec In Lab Faye Maxwell MD CHEMISTRY ORDERABLES Performing Organization Address [facility] Co de Phone Number [facility] [address] documented in this encounter Visit Diagnoses Diagnosis Proteinuria, unspecified type Obesity, unspecified classification, unspecified obesity type, unspecified whether serious comorbidity present Hypertension secondary to other renal disorders documented in this encounter Care Teams Supervisor Instant Potato Processing Relationship Specialty Start Date End Date Dariana Méndez MD [address] [place] [id number] PCP - General Family Medicine 07/16/16 10/29/22 documented as of this encounter
--- OUTSIDE RECORDS SUMMARY | 2024-05-31 21:26 | XMS_ITS | Encounter Summary ---
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 [...] 9:30 AM EDT Office Visit Hematology/Oncology at [address] [phone] Rodriguez Fowler MD [facility] [place] [address] Sherry Cedillo APRN [address] [place] [address] DR HEMATOLOGY AND ONCOLOGY [place], [place] [address] 06/11/2024 10:00 AM EDT Infusion Hematology Oncology at [address] [phone] 06/25/2024 9:30 AM EDT Office Visit Hematology/Oncology at [address] [phone] Rodriguez Fowler MD [facility] [place] [address] Sherry Cedillo APRN [address] [place] [address] DR HEMATOLOGY AND ONCOLOGY [place], [place] [id number] 06/25/2024 10:00 AM EDT Infusion Hematology Oncology at [address] [phone] documented as of this encounter [...] 2:07 PM EDT) Neutrophil % 65.4 % [facility] Neutrophil Absolute 5.96 1.70 - 6.10 x10(3)/[facility] LABORATORY Lymph % 26.1 % [facility] Lymphocytes Abs 2.4 0.9 - 3.2 x10(3)/[facility] LABORATORY Monocyte % 5.4 % [facility] Monocyte Abs 0.5 0.3 - 0.9 x10(3)/[facility]OR[facility]ORY Eos % 2.2 % [facility] Eosinophils Abs 0.2 0.0 - 0.4 x10(3)/[facility] Basophil % 0.7 % [facility] Baso Absolute 0.1 0.0 - 0.1 x10(3)/[facility] Immature Gran % 0.20 % [facility] Comment: Immature granulocytes(IG's)percentage and absolute count will include metamyelocytes, myelocytes, and promyelocytes. Blood smears from CBCs yielding IG's will be scanned manually for concordance. If this scan disagrees with the automated IG or if promyelocytes are noted, a manual differential will be performed. Immature Gran Absolute 0.02 0.00 - 0.04 x10(3)/[facility] LABORATORY Blood 12/12/2021 2:07 PM EDT 12/12/2021 2:14 PM EDT Narrative Resulting Agency Comment Spec In Lab Faye Maxwell MD HEMATOLOGY ORDERABLE S [facility] [place] [address] * (ABNORMAL) Hemogram (12/12/2021 2:07 PM EDT) White Blood Cell 9.1 4.0 - 9.5 x10(3)/[facility] LABORATORY Red Blood Cell 6.34(H) 4.58 - 5.54 x10(6)/[facility] LABORATORY Hemoglobin 16.0 13.7 - 16.5 g/dL [facility] Hematocrit 48.3 40.5 - 48.5 % [facility] Mean Cell Volume 76.2(L) 82.9 - 93.1 fL [facility] Mean Cell Hemoglobin 25.2(L) 27.5 - 32.1 pg [facility] Mean Cell Hemoglobin Concentration 33.1 32.0 - 35.7 g/dL [facility] Platelet 206 145 - 357 x10(3)/mc L [facility] RDW Standard Deviation 38.4 36.0 - 45.0 fL [facility] RDW coefficient of variation 14.4(H) 11.4 - 13.8 % [facility] Mean Platelet Volume 10.0 7.6 - 12.9 fL [facility] NRBC% auto 0.0 % [facility] NRBC Absolute 0.000 0.000 - 0.000 x10(3)/mc L [facility] Blood 12/12/2021 2:07 PM EDT 12/12/2021 2:14 PM EDT Narrative Resulting Agency Comment Spec In Lab Faye Maxwell MD HEMATOLOGY ORDERABLE S [facility] [place] [address] * Basic Metabolic Panel (non-fasting) (12/12/2021 2:07 PM EDT) Glucose 140 65 - 199 mg/dL [facility] Comment:Diabetes: >=200 mg/d L plus symptoms Blood Urea Nitrogen 10 10 - 20 mg/dL [facility] Creatinine 0.98 0.80 - 1.50 mg/dL [facility] Sodium 139 135 - 145 mmol/L [facility] Potassium 4.1 3.5 - 5.0 mmol/L [facility] Comment: Please note: ??Patients with WBC >100,000 may have falsely elevated Potassium levels. ??For accurate Potassium quantification in these patients send serum separator tube (gold top) for subsequent determinations. ??Contact the Clinical Chemistry Laboratory if there are any questions. Chloride 99 98 - 107 mmol/L [facility] Carbon Dioxide 26 22 - 31 mmol/L [facility] Anion Gap 14 5 - 15 mmol/L [facility] Calcium 9.1 8.5 - 10.5 mg/dL [facility] Est Glomerular Filtration Rate 92 >=60 mL/min/1. 73 m?? [facility] Comment: This patient? s estimated [...] Maxwell MD CHEMISTRY ORDERABLES Performing Organization Address [facility] Co de Phone Number [facility] [place] [address] * (ABNORMAL) PTH (12/12/2021 2:07 PM EDT) Parathyroid Hormone 69(H) 15 - 65 pg/mL [facility] Blood 12/12/2021 2:07 PM EDT 12/12/2021 2:14 PM EDT Narrative Resulting Agency Comment Spec In Lab Faye Maxwell MD CHEMISTRY ORDERABLES Performing Organization Address [facility] Co de Phone Number [facility] [place] [address] * Albumin Level (12/12/2021 2:07 PM EDT) Albumin 4.1 3.2 - 5.2 g/dL [facility] Blood 12/12/2021 2:07 PM EDT 12/12/2021 2:14 PM EDT Narrative Resulting Agency Comment Spec In Lab Faye Maxwell MD CHEMISTRY ORDERABLES [facility] [place] [address] * Uric acid (12/12/2021 2:07 PM EDT) Uric Acid 5.1 3.5 - 8.5 mg/dL [facility] Blood 12/12/2021 2:07 PM EDT 12/12/2021 2:14 PM EDT Narrative Resulting Agency Comment Spec In Lab Faye Maxwell MD CHEMISTRY ORDERABLES Performing Organization Address City/[facility]/ZIP Co de Phone Number [facility] [place] [address] * Phosphorus (12/12/2021 2:07 PM EDT) Phosphorus 3.0 2.5 - 4.5 mg/dL [facility] Blood 12/12/2021 2:07 PM EDT 12/12/2021 2:14 PM EDT Narrative Resulting Agency Comment Spec In Lab Faye Maxwell MD CHEMISTRY ORDERABLES Performing Organization Address City/[facility]/ZIP Co de Phone Number [facility] [place] [address] documented in this encounter Visit Diagnoses Diagnosis 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
--- OUTSIDE RECORDS SUMMARY | 2024-05-31 21:26 | XMS_ITS | Encounter Summary ---
Author Organization [facility] [place] [address] Care Team Providers Care Fermentation Engineer Name Role Phone Dariana Méndez MD Primary Care Provider [phone] Encounter Details Date Type Department Care Team (Latest Contact Info) Description 11/14/2017 3:30 PM EST Laboratory Appointment Lab [address] [place] [phone] Proteinuria; Obesity; Hypertension secondary to other renal [...] AM EDT Office Visit Hematology/Oncology at [address] [phone] Rodriguez Fowler MD [facility] [place] [place] [address] Sherry Cedillo APRN [address] [place] [address] DR HEMATOLOGY AND ONCOLOGY [place], [place] [phone] 06/11/2024 10:00 AM EDT Infusion Hematology Oncology at [address] [phone] 06/25/2024 9:30 AM EDT Office Visit Hematology/Oncology at [address] [phone] Rodriguez Fowler MD [facility] [place] [address] Sherry Cedillo APRN [address] [place] [address] HEMATOLOGY [place] [address] 06/25/2024 10:00 AM EDT Infusion Hematology Oncology at [address] [phone] documented as of this encounter Procedures Procedure [...] 3:39 PM EST) Neutrophil % 62.6 % [facility] Neutrophil Absolute 6.63(H) 1.70 - 6.10 x10(3)/mc L [facility] Lymph % 30.3 % [facility] Lymphocytes Abs 3.2 0.9 - 3.2 x10(3)/[facility] LABORATORY Monocyte % 4.6 % [facility] Monocyte Abs 0.5 0.3 - 0.9 x10(3)/ L [facility] Eos % 1.4 % [facility] Eosinophils Abs 0.2 0.0 - 0.4 x10(3)/[facility] LABORATORY Basophil % 0.8 % [facility] Baso Absolute 0.1 0.0 - 0.1 x10(3)/[facility] LABORATORY Immature Gran % 0.30 % [facility] Comment: Immature granulocytes(IG's)percentage and absolute count will include metamyelocytes, myelocytes, and promyelocytes. Blood smears from CBCs yielding IG's will be scanned manually for concordance. If this scan disagrees with the automated IG or if promyelocytes are noted, a manual differential will be performed. Immature Gran Absolute 0.03 0.00 - 0.04 x10(3)/[facility] LABORATORY Blood specimen (specimen) 11/14/2017 3:39 PM EST 11/14/2017 3:56 PM EST Narrative Resulting Agency Comment Spec In Lab Faye Maxwell MD HEMATOLOGY ORDERABLE S Performing Organization Address City/State/[facility] Co de Phone Number [facility] [place] [address] * (ABNORMAL) Hemogram (11/14/2017 3:39 PM EST) White Blood Cell 10.6(H) 4.0 - 9.5 x10(3)/[facility] LABORATORY Red Blood Cell 6.35(H) 4.58 - 5.54 x10(6)/ L [facility] Hemoglobin 16.1 13.7 - 16.5 gm/dL [facility] Hematocrit 48.0 40.5 - 48.5 % [facility] Mean Cell Volume 75.6(L) 82.9 - 93.1 fL [facility] Mean Cell Hemoglobin 25.4(L) 27.5 - 32.1 pg [facility] Mean Cell Hemoglobin Concentration 33.5 32.0 - 35.7 gm/dL [facility] Platelet 219 145 - 357 x10(3)/mc L [facility] RDW Standard Deviation 38.8 36.0 - 45.0 [facility] LABORATORY RDW coefficient of variation 14.4(H) 11.4 - 13.8 % [facility] Mean Platelet Volume 11.0 7.6 - 12.9 [facility] LABORATORY NRBC% auto 0.0 % [facility] NRBC Absolute 0.000 0.000 - 0.000 x10(3)/mc L [facility] Blood specimen (specimen) 11/14/2017 3:39 PM EST 11/14/2017 3:56 PM EST Narrative Resulting Agency Comment Spec In Lab Faye Maxwell MD HEMATOLOGY ORDERABLE S Performing Organization Address [facility] Co de Phone Number [facility] [place] [address] * Uric acid (11/14/2017 3:39 PM EST) Uric Acid 5.0 3.5 - 8.5 mg/dL [facility] Blood specimen (specimen) 11/14/2017 3:39 PM EST 11/14/2017 3:56 PM EST Narrative Resulting Agency Comment Spec In Lab Faye Maxwell MD CHEMISTRY ORDERABLES Performing Organization Address [facility] Co de Phone Number [facility] [place] [address] * Albumin Level (11/14/2017 3:39 PM EST) Albumin 3.9 3.2 - 5.2 gm/dL [facility] Blood specimen (specimen) 11/14/2017 3:39 PM EST 11/14/2017 3:56 PM EST Narrative Resulting Agency Comment Spec In Lab Faye Maxwell MD CHEMISTRY ORDERABLES [facility] [place] [address] * (ABNORMAL) Basic Metabolic Panel (non-fasting) (11/14/2017 3:39 PM EST) Glucose 313(H) 65 - 199 mg/dL [facility] Comment:Diabetes: >=200 mg/d L plus symptoms Blood Urea Nitrogen 11 10 - 20 mg/dL [facility] Creatinine 1.01 0.80 - 1.50 mg/dL [facility] Sodium 135 135 - 145 mmol/L [facility] Potassium 4.2 3.5 - 5.0 mmol/L [facility] Comment: Please note: ??Patients with WBC >100,000 may have falsely elevated Potassium levels. ??For accurate Potassium quantification in these patients send serum separator tube (gold top) for subsequent determinations. ??Contact the Clinical Chemistry Laboratory if there are any questions. Chloride 93(L) 98 - 107 mmol/L [facility] Carbon Dioxide 25 22 - 31 mmol/L [facility] Anion Gap 17(H) 5 - 15 mmol/L [facility] Calcium 8.9 8.5 - 10.5 mg/dL [facility] Est Glomerular Filtration Rate >60 >=60 [facility] Comment: The reported eGFR should be multiplied by 1.2 for patients. The MDRD is not an appropriate measure of renal function for patients with body mass extremes or in patients with acute kidney failure. http://[employer]/DHnkdep http://[employer]/DHMCnkf Blood specimen (specimen) 11/14/2017 3:39 PM EST 11/14/2017 3:56 PM EST Narrative Resulting Agency Comment Spec In Lab Faye Maxwell MD CHEMISTRY ORDERABLES [facility] [place] [address] documented in this encounter Visit Diagnoses Diagnosis Proteinuria Obesity Obesity, unspecified Hypertension secondary to other renal disorders Morbid obesity due to excess calories documented in this encounter Care Teams Fermentation Engineer Relationship Specialty Start Date End Date Dariana Méndez MD [address] [place] [id number] PCP - General Family Medicine 07/16/16 10/29/22 documented as of this encounter
--- OUTSIDE RECORDS SUMMARY | 2024-05-31 21:26 | XMS_ITS | Encounter Summary ---
Author Organization [facility] [place] [address] Care Team Providers Care Logistics Operations Director Name Role Phone Dariana Méndez MD Primary Care Provider [phone] Reason for Visit * Reason Comments Medication Refill Encounter Details Date Type Department Care Team (Late Contact Info) Description 12/15/2017 Refill Nephrology [place] [address] Faye Maxwell MD [facility] [place] [address] Proteinuria; Obesity; Hypertension secondary to other renal [...] AM EDT Office Visit Hematology/Oncology at [address] [phone] Rodriguez Fowler MD [facility] [place] [address] Sherry Cedillo APRN [address] [place] [address] DR HEMATOLOGY AND ONCOLOGY [place], [place] [id number] 06/11/2024 10:00 AM EDT Infusion Hematology Oncology at [address] [phone] 06/25/2024 9:30 AM EDT Office Visit Hematology/Oncology at [address] [phone] Rodriguez Fowler MD [facility] [place] [place] [address] Sherry Cedillo APRN [address] [place] [address] DR HEMATOLOGY AND ONCOLOGY [place], [place] [id number] 06/25/2024 10:00 AM EDT Infusion Hematology Oncology at [address] [phone] documented as of this encounter Visit Diagnoses Diagnosis Proteinuria Obesity Obesity, unspecified Hypertension secondary to other renal disorders documented in this encounter Care Teams Logistics Operations Director Relationship Specialty Start Date End Date Dariana Méndez MD [address] [place] [address] PCP - General Family Medicine 07/16/16 10/29/22 documented as of this encounter
--- OUTSIDE RECORDS SUMMARY | 2024-05-31 21:26 | XMS_ITS | Encounter Summary ---
Author Organization [facility] Address [facility] [place] [address] Care Team Providers Care Locomotive Engineer Electric Name Role Phone Jyoti Martinez APRN Primary Care Provider [phone] Encounter Details Date Type Department Care Team (Late st Contact Info) Description 05/11/2014 4:30 PM EDT Follow-Up [place] [address] Faye Maxwell MD [facility] [place] [address] CKD (chronic kidney disease) stage 3, GFR [...] Renal and Hypertension clinic Charles Nick 1975 [id number] Chief Complaint: This is a followup visit to the Renal and Hypertension clinic for this 38 y.o. 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 He underwent biopsy in 2007 at [facility] which showedresolving membranous GN. Currently in remission. [...] NSAIDs Reports his father, who lives in [place], has proteinuria and edema. Father is not [...] 9:30 AM EDT Office Visit Hematology/Oncology at [address] [phone] Rodriguez Fowler MD [facility] [place] [address] Sherry Cedillo APRN [address] [place] [address] DR HEMATOLOGY AND ONCOLOGY [place], [place] [id number] 06/11/2024 10:00 AM EDT Infusion Hematology Oncology at [address] [phone] 06/25/2024 9:30 AM EDT Office Visit Hematology/Oncology at [address] [phone] Rodriguez Fowler MD [facility] [place] [address] Sherry Cedillo APRN [address] [place] [address] DR HEMATOLOGY AND ONCOLOGY [place], [place] [id number] 06/25/2024 10:00 AM EDT Infusion Hematology Oncology at [address] [phone] documented as of this encounter [...] In Lab Faye Maxwell MD URINE ORDERABLES [facility] * Basic Metabolic Panel (non-fasting) (07/13/2015 3:13 PM EDT) Glucose 107 65 - 199 mg/dL [facility] Comment:Diabetes: >=200 mg/d L plus symptoms Blood Urea Nitrogen 12 10 - 20 mg/dL [facility] Creatinine 0.99 0.80 - 1.50 mg/dL [facility] Comment: Please note that the pediatric reference intervals supplied above were not validated at [facility]. Results from pediatric patients should be interpreted [...] the following links into your internet browser. [email or web address] http://[email or web address] Blood specimen (specimen) 07/13/2015 3:13 PM EDT [...] Hemoglobin Concentration 33.4 32.0 - 36.5 gm/dL [facility] Platelet 173 145 - 370 x10(3)/mc L [facility] RDW Standard Deviation 42.6 35.0 - 46.0 fL [facility] RDW coefficient of variation 14.8(H) 10.9 - 14.4 % [facility] Mean Platelet Volume 11.2 9.0 - 12.0 fL [facility] Blood specimen (specimen) 05/11/2014 5:05 PM EDT 05/11/2014 5:20 PM EDT Narrative Resulting Agency Comment Spec In Lab Faye Maxwell MD HEMATOLOGY ORDERABLE S Performing Organization Address [facility] de Phone Number [facility] * Phosphorus (05/11/2014 5:05 PM EDT) Phosphorus 2.7 2.5 - 4.5 mg/dL [facility] Blood specimen (specimen) 05/11/2014 5:05 PM EDT 05/11/2014 5:20 PM EDT Narrative Resulting Agency Comment Spec In Lab Faye Maxwell MD CHEMISTRY ORDERABLES Performing Organization Address [facility] de Phone Number [facility] * Basic Metabolic Panel (non-fasting) (05/11/2014 5:05 PM EDT) Glucose 193 60 - 199 mg/dL [facility] Comment:Diabetes: >=200 mg/d L plus symptoms Blood Urea Nitrogen 13 10 - 20 mg/dL [facility] Creatinine 1.07 0.80 - 1.50 mg/dL [facility] Comment: Please note that the pediatric reference intervals supplied above were not validated at [facility]. Results from pediatric patients should be interpreted in conjunction to the patient's age, height and muscle mass. Sodium 135 135 - 145 mmol/L [facility] Potassium 3.7 3.5 - 5.0 mmol/L [facility] Comment: Please note: ??Patients with WBC >100,000 [...] the following links into your internet browser. [email or web address] [email or web address] [email or web address] Blood specimen (specimen) 05/11/2014 5:05 PM EDT [...] (pediatric) documented in this encounter Care Teams Locomotive Engineer Electric Relationship Specialty Start Date End Date Jyoti Martinez APRN [address] [place] [address] PCP - General 08/07/10 03/03/16 documented as of this encounter
--- OUTSIDE RECORDS SUMMARY | 2024-05-31 21:26 | XMS_ITS | Encounter Summary ---
[place] [address] Care Team Providers Care Machine Shop Apprentice Name Role Phone Dariana Méndez MD Primary Care Provider [phone] Reason for Referral * Consultation (Routine) - Closed Specialty Diagnoses / Procedures Referred By Contac t Referred To Contact General Surgery Diagnoses Proteinuria Obesity Hypertension secondary to other renal disorders Morbid obesity due to excess calories Faye Maxwell MD [facility] [place] [address] [facility] Gen Surgery [address] [place] [phone] Referral ID Status Reason Start Date Expiration Date V isits Requested Visits Authorized [id number] Closed Assume Subset of Care 08/16/2016 08/16/2017 1 1 Reason for Visit * Consultation (Routine) - Closed Specialty Diagnoses / Procedures Referred By Contac t Referred To Contact Nephrology Diagnoses CHRONIC KIDNEY DISEASE Dariana Méndez MD [address] [place] [address] Faye Maxwell MD [facility] [place] [address] Referral ID Status Reason Start Date Expiration Date V isits Requested Visits Authorized [id number] Closed Consult & Test Connection Center 07/17/2016 07/17/2017 1 1 Encounter Details Date Type Department Care Team (Latest Contact Info) Description 08/16/2016 3:30 PM EST Office Visit Nephrology [place] [address] Faye Maxwell MD [facility] [place] [address] Proteinuria; Obesity; Hypertension secondary to other renal [...] Renal and Hypertension clinic Charles Nick 1975 [id number] Chief Complaint: This is a followup visit to the Renal and Hypertension clinic for this 40 y.o. 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 [...] anxiety Reports his father, who lives in [place], has proteinuria and edema. Father is not [...] AM EDT Office Visit Hematology/Oncology at [address] [phone] Rodriguez Fowler MD [facility] [address] HEMATOLOGY AND ONCOLOGY [place], [place] [address] 06/11/2024 10:00 AM EDT Infusion Hematology Oncology at [address] [phone] 06/25/2024 9:30 AM EDT Office Visit Hematology/Oncology at [address] [phone] Rodriguez Fowler MD [facility] [address] HEMATOLOGY AND ONCOLOGY [place], [place] [address] 06/25/2024 10:00 AM EDT Infusion Hematology Oncology at [address] [phone] Scheduled Referrals Name Type Priority Associated Diagnoses [...] Uric Acid 5.0 3.5 - 8.5 mg/dL [facility] Blood specimen (specimen) 11/14/2017 3:39 PM EST 11/14/2017 3:56 PM EST Narrative Resulting Agency Comment Spec In Lab Faye Maxwell MD CHEMISTRY ORDERABLES Performing Organization Address [facility]/ZIP Co de Phone Number [facility] [place] [address] * Albumin Level (11/14/2017 3:39 PM EST) Albumin 3.9 3.2 - 5.2 gm/dL [facility] Blood specimen (specimen) 11/14/2017 3:39 PM EST 11/14/2017 3:56 PM EST Narrative Resulting Agency Comment Spec In Lab Faye Maxwell MD CHEMISTRY ORDERABLES Performing Organization Address City/[facility]/ZIP Co de Phone Number [facility] [place] [address] * (ABNORMAL) Basic Metabolic Panel (non-fasting) (11/14/2017 3:39 PM EST) Glucose 313(H) 65 - 199 mg/dL [facility] Comment:Diabetes: >=200 mg/d L plus symptoms Blood Urea Nitrogen 11 10 - 20 mg/dL [facility] Creatinine 1.01 0.80 - 1.50 mg/dL [facility] Sodium 135 135 - 145 mmol/L [facility] Potassium 4.2 3.5 - 5.0 mmol/L [facility] Comment: Please note: ??Patients with WBC >100,000 may have falsely elevated Potassium levels. ??For accurate Potassium quantification in these patients send serum separator tube (gold top) for subsequent determinations. ??Contact the Clinical Chemistry Laboratory if there are any questions. Chloride 93(L) 98 - 107 mmol/L [facility] Carbon Dioxide 25 22 - 31 mmol/L [facility] Anion Gap 17(H) 5 - 15 mmol/L [facility] Calcium 8.9 8.5 - 10.5 mg/dL [facility] Est Glomerular Filtration Rate >60 >=60 [facility] Comment: The reported eGFR should be multiplied by 1.2 for patients. The MDRD is not an appropriate measure of renal function for patients with body mass extremes or in patients with acute kidney failure. http://[employer]/DHnkdep http://[employer]/DHMCnkf Blood specimen (specimen) 11/14/2017 3:39 PM EST 11/14/2017 3:56 PM EST Narrative Resulting Agency Comment Spec In Lab Faye Maxwell MD CHEMISTRY ORDERABLES Performing Organization Address [facility]/ZIP Co de Phone Number [facility] [place] [address] * (ABNORMAL) Protein/Creatinine Ratio, urine (08/16/2016 3:30 PM EST) Creatinine, Urine 137 mg/dL [facility] Protein, Urine 27(H) 0 - 12 mg/dL [facility] Protein / Creatinine Ratio, Urine 0.[address] [facility] Urine specimen (specimen) 08/16/2016 3:30 PM EST 08/16/2016 5:02 PM EST Narrative Resulting Agency Comment Spec In Lab Faye Maxwell MD URINE ORDERABLES Performing Organization Address City/[facility]/ZIP Co de Phone Number [facility] [place] [address] * (ABNORMAL) Basic Metabolic Panel (non-fasting) (08/16/2016 2:14 PM EST) Glucose 183 65 - 199 mg/dL [facility] Comment:Diabetes: >=200 mg/d L plus symptoms Blood Urea Nitrogen 11 10 - 20 mg/dL [facility] Creatinine 1.21 0.80 - 1.50 mg/dL [facility] Comment: Please note that the pediatric reference intervals supplied above were not validated at [facility]. Results from pediatric patients should be interpreted [...] LABORATORY Est Glomerular Filtration Rate >60 >=60 [facility] Comment: This estimated GFR (eGFR) [...] the following links into your internet browser. [email or web address]/DHnkdep http://[employer]/DHMCnkf Blood specimen (specimen) 08/16/2016 2:14 PM EST 08/16/2016 2:19 PM EST Narrative Resulting Agency Comment Spec In Lab Faye Maxwell MD CHEMISTRY ORDERABLES [facility] [place] [address] documented in this encounter Visit Diagnoses Diagnosis Proteinuria Obesity Obesity, unspecified Hypertension secondary to other renal disorders Morbid obesity due to excess calories documented in this encounter Care Teams Machine Shop Apprentice Relationship Specialty Start Date End Date Dariana Méndez MD [address] [place] [address] PCP - General Family Medicine 07/16/16 10/29/22 documented as of this encounter
--- OUTSIDE RECORDS SUMMARY | 2024-05-31 21:26 | XMS_ITS | Encounter Summary ---
[place] [address] Care Team Providers Care Special Education Secretary Name Role Phone Olga Hoffman APRN Primary Care Provider [phone] Reason for Referral * Consultation (Routine) - Closed Specialty Diagnoses / Procedures Referred By Janak holland Referred To Contact Gastroenterology Diagnoses Fatty liver Liver - fatty liver Olga Hoffman APRN [address] [place] [address] [facility] [place] [address] [address] Referral ID Status Reason Start Date Expiration Date V isits Requested Visits Authorized [id number] Closed Consult, Test & Treat PCP Updated and/or Approved 10/30/2022 10/30/2023 12 12 Encounter Details Date Type Department Care Team (Late st Contact Info) Description 10/30/2022 Transcribe Orders eDH Incoming Referrals [phone] Olga Hoffman APRN [address] [place] [address] Fatty liver Social History Tobacco [...] AM EDT Office Visit Hematology/Oncology at [address] [phone] Rodriguez Fowler MD [facility] [place] [address] Sherry Cedillo [address] HEMATOLOGY [place] [address] 06/11/2024 10:00 AM EDT Infusion Hematology Oncology at [address] [phone] 06/25/2024 9:30 AM EDT Office Visit Hematology/Oncology at [address] [phone] Rodriguez Fowler MD [facility] [place] [address] [address] HEMATOLOGY AND ONCOLOGY [place], [place] [address] 06/25/2024 10:00 AM EDT Infusion Hematology Oncology at [address] [phone] Scheduled Referrals Name Type Priority Associated Diagnoses Order Schedule Referral to Gastroenterology Outpatient Referral Routine Fatty liver Ordered: 10/30/2022 documented as of this encounter Visit Diagnoses Diagnosis Fatty liver Other chronic nonalcoholic liver disease documented in this encounter Care Teams Special Education Secretary Relationship Specialty Start Date End Date Olga Hoffman APRN [address] [place] [address] PCP - General Family Medicine 10/30/22 documented as of this encounter
--- OUTSIDE RECORDS SUMMARY | 2024-05-31 21:26 | XMS_ITS | Encounter Summary ---
Author Organization [facility] [place] [address] Care Team Providers Care Radiology Clerk Name Role Phone Dariana Méndez MD Primary Care Provider Encounter Details Date Type Department Care Team (Late Contact Info) Description 07/17/2016 Telephone [place] [phone] Deena Wells Social History Tobacco Use Types [...] AM EDT Office Visit Hematology/Oncology at [address] [phone] Rodriguez Fowler MD [facility] [place] [address] Sherry Cedillo APRN [address] [place] [address] DR HEMATOLOGY AND ONCOLOGY [place], [place] [phone] 06/11/2024 10:00 AM EDT Infusion Hematology Oncology at [address] [phone] 06/25/2024 9:30 AM EDT Office Visit Hematology/Oncology at [address] [phone] Rodriguez Fowler MD [facility] [place] [address] Sherry Cedillo APRN [address] [place] [address] DR HEMATOLOGY AND ONCOLOGY [place], [place] [id number] 06/25/2024 10:00 AM EDT Infusion Hematology Oncology at [address] [phone] documented as of this encounter Visit Diagnoses Not on filedocumented in this encounter Care Teams Radiology Clerk Relationship Specialty Start Date End Date Dariana Méndez MD [address] [place] [address] PCP - General Family Medicine 07/16/16 10/29/22 documented as of this encounter
--- OUTSIDE RECORDS SUMMARY | 2024-05-31 21:26 | XMS_ITS | Encounter Summary ---
Author Organization [facility] [place] [address] Care Team Providers Care Sccm Administrator Name Role Phone Dariana Méndez MD Primary Care Provider [phone] Encounter Details Date Type Department Care Team (Latest Contact Info) Description 02/15/2021 10:00 AM EDT TH Visit (TeleHealth) [place] [address] Carlos Dawson MD [facility] [place] [place] [address] Type 2 diabetes mellitus with hyperglycemia, without [...] Type 2 diabetes as part of the [facility] outreach program From Intake: Diagnosis 5-6 years [...] (creatinine) 2020 last cholesterol Panel: 2020 regular access clinician visits- yes, recently special shoes: NO flu [...] AM EDT Office Visit Hematology/Oncology at [address] [phone] Rodriguez Fowler MD [facility] [place] [address] Sherry Cedillo APRN [address] [place] [address] DR HEMATOLOGY AND ONCOLOGY [place], [place] [phone] 06/11/2024 10:00 AM EDT Infusion Hematology Oncology at [address] [phone] 06/25/2024 9:30 AM EDT Office Visit Hematology/Oncology at [address] [phone] Rodriguez Fowler MD [facility] [place] [address] Sherry Cedillo APRN [address] [place] [address] DR HEMATOLOGY AND ONCOLOGY [place], [place] [address] 06/25/2024 10:00 AM EDT Infusion Hematology Oncology at [address] [phone] documented as of this encounter Visit Diagnoses Diagnosis Type 2 diabetes mellitus with hyperglycemia, without long-term current use of insulin Hypertension, unspecified type Proteinuria, unspecified type Obesity, unspecified classification, unspecified obesity type, unspecified whether serious comorbidity present Hypertension secondary to other renal disorders documented in this encounter Care Teams Sccm Administrator Relationship Specialty Start Date End Date Dariana Méndez MD [address] [place] [address] PCP - General Family Medicine 07/16/16 10/29/22 documented as of this encounter
--- OUTSIDE RECORDS SUMMARY | 2024-05-31 21:26 | XMS_ITS | Encounter Summary ---
Author Organization [facility] [place] [address] Care Team Providers Care Wellness Specialist Name Role Phone Dariana Méndez MD Primary Care Provider [phone] Encounter Details Date Type Department Care Team (Latest Contact Info) Description 12/22/2018 10:00 AM EDT Office Visit [place] [address] Faye Maxwell MD [facility] [place] [address] CKD (chronic kidney disease) stage 3, GFR 30-59 ml/min; Type 2 diabetes mellitus with microalbuminuria, unspecified whether bed bug exterminator insulin use Social History Tobacco Use Types [...] Renal and Hypertension clinic Charles Jade 1975 [id number] Chief Complaint: This is a followup visit to the Renal and Hypertension clinic for this 41 y.o. year old man Mr Jade stopped his medications including insulin (continued metformin) for 3 weeks while he was in [place] with his family following the of his [...] without imunotherapy. Repeat biopsy in 2007 at [facility]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Remians in remission. ?? Morbid obesity. ?? Hypertension ?? DMII insulin-dependent. Currently uncontrolled. No identified complications ?? Obstructive sleep apnea: Uses CPAP with improvement tin daytime alertness and mood ?? 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 [...] AM EDT Office Visit Hematology/Oncology at [address] [phone] Rodriguez Fowler MD [facility] [place] [address] [address] HEMATOLOGY AND ONCOLOGY [place], [place] [phone] 06/11/2024 10:00 AM EDT Infusion Hematology Oncology at [address] [phone] 06/25/2024 9:30 AM EDT Office Visit Hematology/Oncology at [address] [phone] Rodriguez Fowler MD [facility] [place] [address] [address] HEMATOLOGY AND ONCOLOGY [place], [place] [phone] 06/25/2024 10:00 AM EDT Infusion Hematology Oncology at [address] [phone] documented as of this encounter Procedures Procedure [...] Ratio, Urine 193(H) 0 - 29 mcg/mg [facility] Comment: Reference Ranges: <30 mcg/mg: Normal [...] 2, 357? 362 Albumin, Urine 84.8 mg/L [facility] Creatinine, Urine 44 mg/dL [facility] Urine specimen (specimen) 12/22/2018 10:00 AM EDT 12/22/2018 12:17 PM EDT Narrative Resulting Agency Comment Spec In Lab Faye Maxwell MD URINE ORDERABLES Performing Organization Address City/[facility] Co de Phone Number [facility] [place] [address] * (ABNORMAL) Protein/Creatinine Ratio, urine (12/22/2018 10:00 AM EDT) Creatinine, Urine 44 mg/dL [facility] Protein, Urine 19(H) 0 - 12 mg/dL [facility] Protein / Creatinine Ratio, Urine 0.4 ratio [facility] Urine specimen (specimen) 12/22/2018 10:00 AM EDT 12/22/2018 12:17 PM EDT Narrative Resulting Agency Comment Spec In Lab Faye Maxwell MD URINE ORDERABLES Performing Organization Address City/[facility]/ZIP Co de Phone Number [facility] [place] [address] documented in this encounter Visit Diagnoses Diagnosis CKD (chronic kidney disease) stage 3, GFR 30-59 ml/min Chronic kidney disease, Stage III (moderate) Type 2 diabetes mellitus with microalbuminuria, unspecified whether bed bug exterminator insulin use documented in this encounter Care Teams Wellness Specialist Relationship Specialty Start Date End Date Dariana Méndez MD [address] [place] [address] PCP - General Family Medicine 07/16/16 10/29/22 documented as of this encounter
--- OUTSIDE RECORDS SUMMARY | 2024-05-31 21:26 | XMS_ITS | Encounter Summary ---
Author Organization [facility] [address] Care Team Providers Care Silk Brusher Name Role Phone Dariana Méndez MD Primary Care Provider [phone] Reason for Referral * Consultation (Routine) - Closed Specialty Diagnoses / Procedures Referred By Contac t Referred To Contact General Surgery Diagnoses Proteinuria, unspecified type Obesity, unspecified classification, unspecified obesity type, unspecified whether serious comorbidity present Hypertension secondary to other renal disorders Faye Maxwell MD [facility] [place] [address] [facility] Gen Surgery [address] [address] Referral ID Status Reason Start Date Expiration Date V isits Requested Visits Authorized [id number] Closed Assume Subset of Care 11/14/2017 11/14/2018 1 1 Encounter Details Date Type Department Care Team (Latest Contact Info) Description 11/14/2017 4:30 PM EST Office Visit Neph[place] [address] Faye Maxwell MD [facility] [place] [address] Proteinuria, unspecified type; Obesity, unspecified classification, unspecified [...] Renal and Hypertension clinic Charles Jade 1975 [id number] Chief Complaint: This is a followup visit [...] without imunotherapy. Repeat biopsy in 2007 at [facility]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Remians in remission. ?? Morbid obesity. ?? DMII diagnosed one year ago. No identified complications ?? Obstructive sleep apnea: Uses CPAP with improvement tin daytime alertness and mood ?? Depression, anxiety Reports his father, who lives in [place], has proteinuria and edema. Father is not diabetic. 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 [...] 9:30 AM EDT Office Visit Hematology/Oncology at [address] [phone] Rodriguez Fowler MD [facility] [place] [address] Sherry Cedillo APRN [address] [place] [address] [place] [address] 06/11/2024 10:00 AM EDT Infusion Hematology Oncology at [address] [phone] 06/25/2024 9:30 AM EDT Office Visit Hematology/Oncology at [address] [phone] Rodriguez Fowler MD [facility] [place] [address] Sherry Cedillo APRN [address] [place] [address] [place] [address] 06/25/2024 10:00 AM EDT Infusion Hematology Oncology at [address] [phone] Scheduled Referrals Name Type Priority Associated Diagnoses [...] Uric Acid 4.0 3.5 - 8.5 mg/dL [facility] Blood specimen (specimen) 12/22/2018 9:49 AM EDT 12/22/2018 10:01 AM EDT Narrative Resulting Agency Comment Spec In Lab Faye Maxwell MD CHEMISTRY ORDERABLES [facility] [place] [address] * Albumin Level (12/22/2018 9:49 AM EDT) Albumin 3.7 3.2 - 5.2 gm/dL [facility] Blood specimen (specimen) 12/22/2018 9:49 AM EDT 12/22/2018 10:01 AM EDT Narrative Resulting Agency Comment Spec In Lab Faye Maxwell MD CHEMISTRY ORDERABLES [facility] [place] [address] * (ABNORMAL) Basic Metabolic Panel (non-fasting) (12/22/2018 9:49 AM EDT) Glucose 409(H) 65 - 199 mg/dL [facility] Comment:Diabetes: >=200 mg/d L plus symptoms Blood Urea Nitrogen 8(L) 10 - 20 mg/dL [facility] Creatinine 0.85 0.80 - 1.50 mg/dL [facility] Sodium 134(L) 135 - 145 mmol/L [facility] Potassium 4.3 3.5 - 5.0 mmol/L [facility] Comment: Please note: ??Patients with WBC >100,000 may have falsely elevated Potassium levels. ??For accurate Potassium quantification in these patients send serum separator tube (gold top) for subsequent determinations. ??Contact the Clinical Chemistry Laboratory if there are any questions. Chloride 101 98 - 107 mmol/L [facility] Carbon Dioxide 22 22 - 31 mmol/L [facility] Anion Gap 11 5 - 15 mmol/L [facility] Calcium 8.9 8.5 - 10.5 mg/dL [facility] Est Glomerular Filtration Rate 106 >=60 mL/min/1. 73 m?? [facility] Comment: The eGFR was calculated using the CKD-EPI equation. As with all creatinine based estimates of kidney function, eGFR values calculated with the CKD-EPI equation are not accurate in patients with acute kidney failure, extremes of body mass or the acutely ill. http://[employer]/[facility] eGFR 123 >=60 mL/min/1. 73 m?? [facility] Comment: The eGFR was calculated using the CKD-EPI equation. As with all creatinine based estimates of kidney function, eGFR values calculated with the CKD-EPI equation are not accurate in patients with acute kidney failure, extremes of body mass or the acutely ill. [email or web address]/[facility] Blood specimen (specimen) 12/22/2018 9:49 AM EDT 12/22/2018 10:01 AM EDT Narrative Resulting Agency Comment Spec In Lab Faye Maxwell MD CHEMISTRY ORDERABLES Performing Organization Address City/[facility]/[place]IP [place] [address] * (ABNORMAL) U Albumin/Cre Ratio (11/14/2017 4:00 PM EST) Albumin / Creatinin Ratio, Urine 54(H) 0 - 29 mcg/mg Cr [facility] Comment: Reference Ranges: <30 [...] 2, 357? 362 Albumin, Urine 11.9 mg/L [facility] Creatinine, Urine 22 mg/dL [facility] Urine specimen (specimen) 11/14/2017 4:00 PM EST 11/14/2017 4:48 PM EST Narrative Resulting Agency Comment Spec In Lab Faye Maxwell MD URINE ORDERABLES Performing Organization Address City/[facility]/ZIP Co de Phone [place] [address] documented in this encounter Visit Diagnoses Diagnosis Proteinuria, unspecified type Obesity, unspecified classification, unspecified obesity type, unspecified whether serious comorbidity present Hypertension secondary to other renal disorders documented in this encounter Care Teams Silk Brusher Relationship Specialty Start Date End Date Dariana Méndez MD [address] [place] [address] PCP - General Family Medicine 07/16/16 10/29/22 documented as of this encounter
--- OUTSIDE RECORDS SUMMARY | 2024-05-31 21:26 | XMS_ITS | Encounter Summary ---
Author Organization [facility] [place] [address] Care Team Providers Care Keypuncher Name Role Phone JuanElke Alexa RUST Primary Care Provider [phone] Encounter Details Date Type Department Care Team (Latest Contact Info) Description 05/26/2012 Orders Only [place] [address] Faye Maxwell MD 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 [place] [address] Sherry Cedillo APRN [address] [place] [address] DR [place] [address] 06/11/2024 10:00 AM EDT Infusion Hematology Oncology at [address] [phone] 06/25/2024 9:30 AM EDT Office Visit Hematology/Oncology at [address] [phone] Rodriguez Fowler MD [facility] [place] [address] Sherry Cedillo, STORAGE CENTER MANAGER [address] [place] [address] DR HEMATOLOGY AND ONCOLOGY [place], [place] [address] 06/25/2024 10:00 AM EDT Infusion Hematology Oncology at [address] [phone] Scheduled Orders Name Type Priority Associated Diagnoses [...] Platelet Volume 10.7 9.0 - 12.0 fL CERDENA MILLENNIUM Blood specimen (specimen) 05/27/2012 1:08 PM EDT 05/27/2012 1:16 PM EDT Narrative Resulting Agency Comment Spec In Lab Faye Maxwell MD HEMATOLOGY ORDERABLE S CRISTO MIGUEL documented in this encounter Visit Diagnoses Diagnosis 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
--- OUTSIDE RECORDS SUMMARY | 2024-05-31 21:26 | XMS_ITS | Encounter Summary ---
Author Organization [facility] [place] [address] Care Team Providers Care Clay Temperer Name Role Phone Dariana Méndez MD Primary Care Provider [phone] Encounter Details Date Type Department Care Team (Late st Contact Info) Description 09/23/2022 Ancillary Procedure Radiology Library at [facility] [phone] Dariana Méndez MD [address] [place] [address] [id number] Social History Tobacco Use Types Packs/Day Years [...] 9:30 AM EDT Office Visit Hematology/Oncology at [address] [phone] Rodriguez Fowler MD [facility] [place] [address] Sherry Cedillo, YOCASTA [address] [place] [address] DR HEMATOLOGY [place] [address] 06/11/2024 10:00 AM EDT Infusion Hematology Oncology at [address] [phone] 06/25/2024 9:30 AM EDT Office Visit Hematology/Oncology at [address] [phone] Rodriguez Fowler MD [facility] [place] [address] Sherry Cedillo APRN [address] [place] [address] DR HEMATOLOGY AND ONCOLOGY [place], [place] [address] 06/25/2024 10:00 AM EDT Infusion Hematology Oncology at [address] [phone] documented as of this encounter Procedures Procedure Name Priority Date/Time Associated Diagnosis Comments FILM LIBRARY STORAGE ONLY CT CHEST ABDOMEN PELVIS Routine 09/23/2022 12:00 AM EST documented in this encounter Results * Film Library- Storage Only CT Chest Abdomen Pelvis (09/23/2022 12:00 AM EST) Narrative [facility] - 10/30/2022 10:11 AM EST This exam is auto-finalizing. It's purpose is for storage only. Dariana Méndez MD G FILM LIBRARY ORD ERABLES [place], [place] documented in this encounter Visit Diagnoses Not on filedocumented in this encounter Care Teams Clay Temperer Relationship Specialty Start Date End Date Dariana Méndez MD [address] [place] [address] PCP - General Family Medicine 07/16/16 10/29/22 documented as of this encounter
--- OUTSIDE RECORDS SUMMARY | 2024-05-31 21:26 | XMS_ITS | Encounter Summary ---
Author Organization [facility] Address [facility] [place] [address] Care Team Providers Care Insurance Claims Clerk Name Role Phone Dalton Olga Bell APRN Primary Care Provider [phone] Encounter Details Date Type Department Care Team (Late st Contact Info) Description 09/13/2008 Orders Only Nephrology [place] [address] Faye Maxwell MD [facility] [place] [address] Social History Tobacco Use Types Packs/Day Years [...] AM EDT Office Visit Hematology/Oncology at [address] [phone] Rodriguez Fowler MD [facility] [place] [address] HEMATOLOGY AND ONCOLOGY [place], [place] [address] 06/11/2024 10:00 AM EDT Infusion Hematology Oncology at [address] [phone] 06/25/2024 9:30 AM EDT Office Visit Hematology/Oncology at [address] [phone] Rodriguez Fowler MD [facility] [place] [address] HEMATOLOGY AND ONCOLOGY [place], [place] [address] 06/25/2024 10:00 AM EDT Infusion Hematology Oncology at [address] [phone] documented as of this encounter Procedures Procedure Name Priority Date/Time Associated Diagnosis Comments SURGICAL PATHOLOGY REPORT Routine 09/13/2008 11:25 AM EST documented in this encounter Results * Surgical Pathology Report (09/13/2008 11:25 AM EST) Surgical Pathology Report [id number] ? Location: The signing pathologist has (i) examined the relevant preparation(s) for the specimen(s) and (ii) rendered or confirmed the diagnosis(es). . ?Pathology Surgical Pathology Final Report Clinical Information Specimen Submitted: A - Tangirnaq - kidney, formalin B - Tangirnaq - kidney, saline C - Tangirnaq - kidney, glutaraldehyde left Clinical History: 32-yr-old [...] ?? Fibrinogen: ??Negative ?? Albumin: ??Negative ?? Goulds: ?1+ finely granular peripheral staining ?? Lambda: [...] report in rendering the final pathologic diagnosis. CIRSTO MIGUEL 09/13/2008 11:2 5 AM EST Faye Maxwell MD PATHOLOGY/CYTOLOGY Yoel GRANGER Performing Organization Address City/State/[facility] Co de Phone Number [facility] documented in this encounter Visit Diagnoses Not on filedocumented in this encounter Care Teams Insurance Claims Clerk Relationship Specialty Start Date End Date Olga Hoffman APRN [address] [place] [address] PCP - General Family Medicine 10/30/22 documented as of this encounter
--- OUTSIDE RECORDS SUMMARY | 2024-05-31 21:26 | XMS_ITS | Encounter Summary ---
Author Organization [facility] [address] Care Team Providers Care Pattern Scratcher Name Role Phone Dariana Méndez MD Primary Care Provider [phone] Encounter Details Date Type Department Care Team (Late st Contact Info) Description 12/08/2019 Telephone Nephrology [place] [phone] Shahida Joshi Social History Tobacco Use Types [...] AM EDT Office Visit Hematology/Oncology at [address] [phone] Rodriguez Fowler MD [facility] [place] [address] Sherry Cedillo APRN [address] [place] [address] DR HEMATOLOGY AND ONCOLOGY [place], [place] [address] 06/11/2024 10:00 AM EDT Infusion Hematology Oncology at [address] [phone] 06/25/2024 9:30 AM EDT Office Visit Hematology/Oncology at [address] [phone] Rodriguez Fowler MD [facility] [place] [address] [address] HEMATOLOGY AND ONCOLOGY [place], [place] [address] 06/25/2024 10:00 AM EDT Infusion Hematology Oncology at [address] [phone] documented as of this encounter Visit Diagnoses Not on filedocumented in this encounter Care Teams Pattern Scratcher Relationship Specialty Start Date End Date Dariana Méndez MD [address] [place] [address] PCP - General Family Medicine 07/16/16 10/29/22 documented as of this encounter
--- OUTSIDE RECORDS SUMMARY | 2024-05-31 21:26 | XMS_ITS | Encounter Summary ---
Author Organization [facility] [place] [address] Care Team Providers Care Incinerator Attendant Name Role Phone Dariana Méndez MD Primary Care Provider [phone] Reason for Visit * Reason Comments Medication Refill Encounter Details Date Type Department Care Team (Late Contact Info) Description 09/14/2017 Refill Nephrology [place] [address] Faye Maxwell MD [facility] [address] Proteinuria; Obesity; Hypertension secondary to other renal [...] Department Care Team (Late Contact Info) Description 06/11/2024 9:30 AM EDT Office Visit Hematology/Oncology at [address] [phone] Rodriguez Fowler MD [facility] [place] [address] Sherry Cedillo APRN [address] [place] [address] DR HEMATOLOGY AND ONCOLOGY [place], [place] [address] 06/11/2024 10:00 AM EDT Infusion Hematology Oncology at [address] [phone] 06/25/2024 9:30 AM EDT Office Visit Hematology/Oncology at [address] [phone] Rodriguez Fowler MD [facility] [place] [address] Sherry Cedillo APRN [address] [place] [address] DR HEMATOLOGY AND ONCOLOGY [place], [place] [address] 06/25/2024 10:00 AM EDT Infusion Hematology Oncology at [address] [phone] documented as of this encounter Visit Diagnoses Diagnosis Proteinuria Obesity Obesity, unspecified Hypertension secondary to other renal disorders documented in this encounter Care Teams Incinerator Attendant Relationship Specialty Start Date End Date Dariana Méndez MD [address] [place] [address] PCP - General Family Medicine 07/16/16 10/29/22 documented as of this encounter
--- OUTSIDE RECORDS SUMMARY | 2024-05-31 21:26 | XMS_ITS | Encounter Summary ---
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 ?? Obesity. ?? Hypertension well controlled ?? DMII insulin-dependent. Variable control - states improved recently.. No evidence diabetic nephropathy. Neuropathy feet and hands without ulceration, Biltaeral cataracts, no retinopathy. identified complications ?? Obstructive sleep apnea: Uses CPAP with improvement tin daytime alertness and mood ?? 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 3 children. Father . Mother Habits: Non [...] AM EDT Office Visit Hematology/Oncology at [address] [phone] Rodriguez Fowler MD [facility] DR [place] [address] Sherry Cedillo APRN [address] [place] [address] DR HEMATOLOGY AND ONCOLOGY [place], [place] [phone] 06/11/2024 10:00 AM EDT Infusion Hematology Oncology at [address] [phone] 06/25/2024 9:30 AM EDT Office Visit Hematology/Oncology at [address] [phone] Rodriguez Fowler MD [facility] [place] [address] Sherry Cedillo APRN [address] [place] [address] DR [place] [address] 06/25/2024 10:00 AM EDT Infusion Hematology Oncology at [address] [phone] documented as of this encounter Procedures Procedure Name Priority Date/Time Associated Diagnosis Comments HC CREATININE - NON BLOOD Routine 12/12/2021 2:30 PM EDT 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 362 Albumin, Urine 108.1 mg/L [facility] Creatinine, Urine 64 mg/dL [facility] Urine 12/12/2021 2:30 PM EDT 12/12/2021 6:31 PM EDT Narrative Resulting Agency Comment Spec In Lab Faye Maxwell MD URINE ORDERABLES Performing Organization Address City/[facility]/ZIP Co de Phone Number [facility] [place] [address] * Phosphorus (12/12/2021 2:07 PM EDT) Phosphorus 3.0 2.5 - 4.5 mg/dL [facility] Blood 12/12/2021 2:07 PM EDT 12/12/2021 2:14 PM EDT Narrative Resulting Agency Comment Spec In Lab Faye Maxwell MD CHEMISTRY ORDERABLES Performing Organization Address [facility]/ZIP Co de Phone Number [facility] [place] [address] * Uric acid (12/12/2021 2:07 PM EDT) Uric Acid 5.1 3.5 - 8.5 mg/dL [facility] Blood 12/12/2021 2:07 PM EDT 12/12/2021 2:14 PM EDT Narrative Resulting Agency Comment Spec In Lab Faye Maxwell MD CHEMISTRY ORDERABLES Performing Organization Address City/[facility]/ZIP Co de Phone Number [facility] [place] [address] * Albumin Level (12/12/2021 2:07 PM EDT) Albumin 4.1 3.2 - 5.2 g/dL [facility] Blood 12/12/2021 2:07 PM EDT 12/12/2021 2:14 PM EDT Narrative Resulting Agency Comment Spec In Lab Faye Maxwell MD CHEMISTRY ORDERABLES Performing Organization Address City/[facility]/ZIP Co de Phone Number [facility] [place] [address] * (ABNORMAL) PTH (12/12/2021 2:07 PM EDT) Parathyroid Hormone 69(H) 15 - 65 pg/mL [facility] Blood 12/12/2021 2:07 PM EDT 12/12/2021 2:14 PM EDT Narrative Resulting Agency Comment Spec In Lab Faye Maxwell MD CHEMISTRY ORDERABLES Performing Organization Address [facility] Co de Phone Number [facility] [place] [address] * Basic Metabolic Panel (non-fasting) (12/12/2021 2:07 PM EDT) Glucose 140 65 - 199 mg/dL [facility] Comment:Diabetes: >=200 mg/d L plus symptoms Blood Urea Nitrogen 10 10 - 20 mg/dL [facility] Creatinine 0.98 0.80 - 1.50 mg/dL [facility] Sodium 139 135 - 145 mmol/L [facility] Potassium 4.1 3.5 - 5.0 mmol/L [facility] Comment: Please note: ??Patients with WBC >100,000 may have falsely elevated Potassium levels. ??For accurate Potassium quantification in these patients send serum separator tube (gold top) for subsequent determinations. ??Contact the Clinical Chemistry Laboratory if there are any questions. Chloride 99 98 - 107 mmol/L [facility] Carbon Dioxide 26 22 - 31 mmol/L [facility] Anion Gap 14 5 - 15 mmol/L [facility] Calcium 9.1 8.5 - 10.5 mg/dL [facility] Est Glomerular Filtration Rate 92 >=60 mL/min/1. 73 m?? [facility] Comment: This patient? 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
--- OUTSIDE RECORDS SUMMARY | 2024-05-31 21:26 | XMS_ITS | Encounter Summary ---
Author Organization Formerly [facility] [place] [address] Care Team Providers Care Aircraft Instrument Engineer Name Role Phone JuanMichelinehubert Liu APRN Primary Care Provider [phone] Encounter Details Date Type Department Care Team (Late st Contact Info) Description 02/12/2011 Abstract [place] [phone] Charline Garcia, RN Social History Tobacco Use [...] AM EDT Office Visit Hematology/Oncology at [address] [phone] Rodriguez Fowler MD [facility] [place] [address] Sherry Cedillo APRN [address] [place] [address] DR HEMATOLOGY AND ONCOLOGY [place], [place] [phone] 06/11/2024 10:00 AM EDT Infusion Hematology Oncology at [address] [phone] 06/25/2024 9:30 AM EDT Office Visit Hematology/Oncology at [address] [phone] Rodriguez Fowler MD [facility] [place] [address] Sherry Cedillo APRN [address] [place] [address] DR HEMATOLOGY AND ONCOLOGY [place], [place] [phone] 06/25/2024 10:00 AM EDT Infusion Hematology Oncology at [address] [phone] documented as of this encounter Visit Diagnoses Not on filedocumented in this encounter Care Teams Aircraft Instrument Engineer Relationship Specialty Start Date End Date Elke Martinez APRN [address] [place] [address] PCP - General 08/07/10 03/03/16 documented as of this encounter
--- OUTSIDE RECORDS SUMMARY | 2024-05-31 21:26 | XMS_ITS | Encounter Summary ---
Author Organization [facility] [place] [address] Care Team Providers Care Supervisor Metal Furniture Assembly Name Role Phone Elke Martinez APRN Primary Care Provider Encounter Details Date Type Department Care Team (Latest Contact Info) Description 07/13/2015 3:00 PM EDT Laboratory Appointment Lab [address] [place] [phone] CKD (chronic kidney disease) stage 3, GFR [...] AM EDT Office Visit Hematology/Oncology at [address] [phone] Rodriguez Fowler MD [facility] [place] [place] [address] Sherry Cedillo APRN [address] [place] [address] DR [place] [address] 06/11/2024 10:00 AM EDT Infusion Hematology Oncology at [address] [phone] 06/25/2024 9:30 AM EDT Office Visit Hematology/Oncology at [address] [phone] [facility] [place] [address] Sherry Cedillo APRN [address] [place] [address] DR HEMATOLOGY AND ONCOLOGY [place], [place] [id number] 06/25/2024 10:00 AM EDT Infusion Hematology Oncology at [address] [phone] documented as of this encounter Procedures Procedure [...] MD HEMATOLOGY ORDERABLE S Performing Organization Address [facility] Co de Phone Number CRISTO ESCOBARIUM * (ABNORMAL) Hemogram (07/13/2015 3:13 PM EDT) [...] MD HEMATOLOGY ORDERABLE S Performing Organization Address [facility]/ZIP Co de Phone Number [...] intervals supplied above were not validated at [facility]. Results from pediatric patients should be interpreted [...] the following links into your internet browser. [email or web address] Blood specimen (specimen) 07/13/2015 3:13 PM EDT [...] (pediatric) documented in this encounter Care Teams Supervisor Metal Furniture Assembly Relationship Specialty Start Date End Date Elke Martinez APRN [address] [place] [address] PCP - General 08/07/10 03/03/16 documented as of this encounter
--- OUTSIDE RECORDS SUMMARY | 2024-05-31 21:26 | XMS_ITS | Encounter Summary ---
Author Organization [facility] [place] [address] Care Team Providers Care Assorter Name Role Phone JuanElke Alexa RUST Primary Care Provider [phone] Encounter Details Date Type Department Care Team (Late Contact Info) Description 01/31/2011 Orders Only [place] [address] Faye Maxwell MD [facility] [place] [address] CKD (chronic kidney disease) stage 3, GFR [...] AM EDT Office Visit Hematology/Oncology at [address] [phone] Rodriguez Fowler MD [facility] [place] [address] Sherry Cedillo APRN [address] [place] [address] DR HEMATOLOGY AND ONCOLOGY [place], [place] [address] 06/11/2024 10:00 AM EDT Infusion Hematology Oncology at [address] [phone] 06/25/2024 9:30 AM EDT Office Visit Hematology/Oncology at [address] [phone] Rodriguez Fowler MD [facility] [place] [address] Sherry Cedillo WASHING MACHINE INSTALLER [address] [place] [address] H[place]OLOGY [place] [address] 06/25/2024 10:00 AM EDT Infusion Hematology Oncology at [address] [phone] documented as of this encounter Results * Phosphorus (02/14/2011 10:02 AM EDT) Pathologist [facility] Phosphorus 2.9 2.5 - 4.5 mg/dL CERNER MILLENNIUM Blood specimen (specimen) 02/14/2011 10:02 AM EDT 02/14/2011 10:06 AM EDT Faye Maxwell MD CHEMISTRY ORDERABLES CERNER MILLENNIUM * (ABNORMAL) CBC (with Diff) (02/14/2011 10:02 AM EDT) Pathologist [facility] White Blood Cell 8.7 4.0 - 10.0 [...] AM EDT 02/14/2011 10:06 AM EDT Faye Maxewll MD CHEMISTRY ORDERABLES Performing Organization Address [facility] Co de Phone Number CRISTO MIGUEL * Albumin (02/14/2011 10:02 AM EDT) Albumin 4.1 3.2 - 5.2 gm/dL CRISTO MIGUEL Blood specimen (specimen) 02/14/2011 10:02 AM EDT 02/14/2011 10:06 AM EDT Faye Maxwell MD CHEMISTRY ORDERABLES Performing Organization Address [facility] Co de Phone Number CRISTO MYRIAM documented in this encounter Visit Diagnoses Diagnosis CKD (chronic kidney disease) stage 3, GFR 30-59 ml/min- Primary Chronic kidney disease, Stage III (moderate) documented in this encounter Care Teams Assorter Relationship Specialty Start Date End Date Elke Martinez APRN [address] [place] [address] PCP - General 08/07/10 03/03/16 documented as of this encounter
--- NOTE | 2024-05-31 21:30 | DI.RAD_ITS ---
Exam(s) XR PORTABLE CHEST AP EXAM: XR PORTABLE CHEST AP CLINICAL HISTORY: fever. TECHNIQUE: 2D digital imaging was performed. COMPARISON: No exams were available for comparison FINDINGS: Single AP portable view. Distal tip of the right Port-A-Cath is in good position in the SVC. Heart size is upper normal. The mediastinum is not widened. Lungs are clear. No infiltrates nor obvious pleural effusions. No pulmonary nodules evident. IMPRESSION: No acute pulmonary findings on this single AP portable view of the chest. DATA REPOSITORY: RADIATION DOSE DELIVERED:
[2024-05-31] MEDS: Normal Saline 1,000 ML 1000 ML IV ×2 (21:47→22:48)
[2024-05-31 21:49] LABS: Lactate 1.1 mmol/L (0.6-1.4)
[2024-05-31 21:51] LABS: Abs Immature Grans 0.03 10^3/uL (0.0-0.06); Absolute Eosinophil Count 0.09 10^3/uL (0.0-0.7); Absolute Lymphocyte Count 1.85 10^3/uL (1.2-3.4); Absolute Monocyte Count 0.21 10^3/uL (0.1-0.8); Basophils % 0.2 %; Eosinophils % 0.7 %; HCT 44.7 % (40.0-50.0); HGB 14.2 g/dL (13.5-17.5); Immature Grans % 0.2 %; Lymphocytes % 15.2 %; MCH 23.4 pg (27.0-33.0); MCHC 31.8 % (32.0-36.0); MCV 74 fL (80-95); MPV 10.2 fL (8.0-11.0); Monocytes % 1.7 %; Platelet Count 240 10^3/uL (130-400); RBC 6.07 10^6/uL (4.36-5.78); RDW 14.8 % (11.8-14.1); RDW-SD 38.9 fL; WBC 12.18 10^3/uL (4.4-10.8)
[2024-05-31 21:54] LABS: Absolute Basophil Count 0.02 10^3/uL (0.0-0.2); Absolute Neutrophil Count 9.99 10^3/uL (1.2-6.7)
--- NOTE | 2024-05-31 22:03 | ED.GENADUL_ITS ---
Discharge Plan Discharge Details Chief Complaint: [facility]Medical Primary Care Provider: Olga Hoffman ED Provider: Shana Hollins Home Meds and New Rx's Prescriptions: No Action gabapentin 600 mg tablet 600 mg PO HS PRN magnesium oxide 400 mg magnesium tablet 400 mg PO DAILY Zenpep 40,000-126,000- 168,000 unit capsule,delayed release(DR/EC) 4 cap PO TID Patient Comments: [facility] 03/2024 Rx Instructions: 2 caps administer with meals and 1 cap with snacks omeprazole 20 mg capsule,delayed release(DR/EC) 20 mg PO DAILY citalopram [Celexa] 10 mg tablet 40 mg PO DAILY furosemide 20 mg tablet 40 mg PO BID montelukast 10 mg tablet 10 mg PO DAILY ondansetron 4 mg tablet,disintegrating 4 mg PO Q8H PRN (Reason: nausea and vomiting) Qty: 30 0RF acetaminophen 325 mg tablet 650 mg PO Q6H PRN Patient Comments: TAKE TWO TABLETS BY MOUTH EVERY 8 HOURS NEEDED prochlorperazine maleate 10 mg tablet 10 mg PO Q8H PRN Patient Comments: TAKE ONE TABLET BY MOUTH EVERY 6 HOURS NEEDED FOR NAUSEA Baqsimi 3 mg/actuation spray,non-aerosol 3 mg INTRANASAL PRN Patient Comments: INSTILL 1 SPRAY NASALLY DIRECTED NEEDED FOR SEVERE HYPOGLYCEMIA NOT RESPONDING TO ORAL TREATMENT FOR LOW BLOOD SUGAR ergocalciferol (vitamin D2) 1,250 mcg (50,000 unit) capsule 5,000 mcg PO .weekly Patient Comments: TAKE ONE CAPSULE BY MOUTH ONCE A WEEK insulin lispro [Humalog U-100 Insulin] 100 unit/mL solution Patient Comments: INJECT 0-11 UNITS SUBCUTANEOUSLY THREE TIMES A DAY WITH MEALS DIRECTED tadalafil 20 mg tablet 20 mg PO DAILY PRN Patient Comments: TAKE 1 TABLET BY MOUTH EVERY DAY NEEDED loratadine [Claritin] 10 mg tablet 10 mg PO DAILY potassium chloride 10 mEq tablet extended release 10 meq PO DAILY Patient Comments: TAKE ONE TABLET BY MOUTH TWICE A DAY insulin glargine-yfgn [Semglee(insulin glarg-yfgn)Pen] 100 unit/mL (3 mL) insulin pen 30 unit SUBCUT DAILY Patient Comments: INJECT 10 UNITS UNDER THE SKIN EVERY MORNING HPI General Date/Time Provider Initiated Documentation: 05/31/24 21:06 . Limitations to Documentation: no limitations . Information obtained by: patient and family () . 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 Induction dose of Friday through Friday. The patient had abdominal surgery in February with complication of abscess. A drain was placed which was removed on May 14. Apparently had been doing well with an occasional fever, but no prolonged fever or abdominal pain. He started chemotherapy 2 days ago and completed the 48-hour induction dosing. Related Data Home Medications ?Medication ?Instructions ?Recorded ?Confirmed ondansetron 4 mg disintegrating 4 mg PO Q8H PRN nausea and 09/23/22 05/31/24 tablet vomiting #30 tabs montelukast 10 mg tablet 10 mg PO DAILY 11/10/23 05/31/24 magnesium oxide 400 mg PO DAILY 12/30/23 05/31/24 gabapentin 600 mg tablet 600 mg PO HS PRN 02/24/24 05/31/24 insulin glargine-yfgn 100 unit/mL 30 unit subcut DAILY 03/24/24 05/31/24 (3 mL) subcutaneous pen (Semglee (insulin glargine-yfgn) Pen) potassium chloride 10 mEq 10 meq PO DAILY 03/24/24 05/31/24 tablet,extended release citalopram 10 mg tablet (Celexa) 40 mg PO DAILY 04/06/24 05/31/24 furosemide 20 mg tablet 40 mg PO BID 04/06/24 05/31/24 mwphds-xcluhcjx-hkcqkmk 4 cap PO TID 04/06/24 05/31/24 40,000-126,000-168,000 unit capsule, delay rel (Zenpep) omeprazole 20 mg capsule,delayed 20 mg PO DAILY 04/06/24 05/31/24 release acetaminophen 325 mg tablet 650 mg PO Q6H PRN 05/31/24 05/31/24 ergocalciferol (vitamin D2) 1,250 5,000 mcg PO .weekly 05/31/24 05/31/24 mcg (50,000 unit) capsule glucagon 3 mg/actuation nasal 3 mg intranasal PRN 05/31/24 spray (Baqsimi) insulin lispro 100 unit/mL 05/31/24 subcutaneous solution (Humalog U-100 Insulin) loratadine 10 mg tablet (Claritin) 10 mg PO DAILY 05/31/24 05/31/24 prochlorperazine maleate 10 mg 10 mg PO Q8H PRN 05/31/24 05/31/24 tablet tadalafil 20 mg tablet 20 mg PO DAILY PRN 05/31/24 05/31/24 Previous Rx's ?Medication ?Instructions ?Recorded ondansetron 4 mg disintegrating 4 mg PO Q8H PRN nausea and 09/23/22 tablet vomiting #30 tabs Allergies Allergy/AdvReac Type Severity Reaction Status Date / Time Penicillins Allergy Intermediate Anaphylaxsi Verified 05/31/24 21:09 s General Stated Complaint: GenMedical ANA M: 2 Exam Narrative Exam Narrative: Review of Systems: All systems reviewed & are unremarkable except as noted in HPI and below Well-developed, no acute distress afebrile NCAT PERRL, normal conjunctiva RRR, no murmur port in chest wall Unlabored respiratory effort, CTAB well healed surgical scars, Nondistended abdomen , mild epigastric tenderness No rashes or lesions. no focal neurologic deficits Course Vital Signs Vital signs: Vital Signs Temperature 37.2 C 05/31/24 21:06 Pulse 102 H 05/31/24 21:06 Respiratory Rate 16 05/31/24 21:06 Blood Pressure 116/85 05/31/24 21:06 Pulse Oximetry 97 05/31/24 21:06 Temperature 37.2 C 05/31/24 21:06 Pulse 102 H 05/31/24 21:06 Respiratory Rate 16 05/31/24 21:06 Respiratory Effort Normal 05/31/24 21:16 Blood Pressure 116/85 05/31/24 21:06 Pulse Oximetry 97 05/31/24 21:06 Oxygen Delivery Method Room Air 05/31/24 21:06 Oxygen Flow Rate 0 05/31/24 21:06 Pain Level 2 05/31/24 21:06 Lab/Test Results Lab/Test Results: 05/31/24 21:40 Blood Blood Culture - Pending 05/31/24 21:06 Blood Blood Culture - Pending Laboratory Tests Range/Units 05/31/24 21:40 VBG Lactate (0.6-1.4) mmol/L 1.1 Medical Decision Making Emergent evaluation of fever and a patient with ongoing malignancy treatment. Patient had documented fever at home and was given Tylenol. Is afebrile at this time. Generally not feeling well although he does not have any specific symptoms. Plan for neutropenic fever workup including labs, cultures. Given that his chemotherapy stopped less than 24 hours ago, unclear his risk for a neutropenic fever to develop in this time, but would be concern for ongoing intra-abdominal infection recurrence of abscess. Will also get CT of the abdomen to evaluate. 2250 White blood cell count is 12, and no evidence of neutropenia. Lactic acid is not elevated. Viral testing is negative. Chest x-ray does not demonstrate a focal consolidation. Remaining lab work is still pending.. 2330 Remaining lab work is not remarkable for any acute derangement. Mild hyperglycemia without evidence of DKA. Creatinine is normal. Liver function testing is also normal. Urinalysis does not reveal infection. Micro is still pending. CT scan to evaluate for abscess is still pending. Final disposition pending the studies and discussion with oncology team turned over to oncoming provider. Quality:SDOH Health Related Social Needs: No Data to Display PFSH All Active Problems Cellulitis (Acute) Ulcer of right foot with fat layer exposed (Acute) Hyperpigmented skin lesion (Acute) Nevus (Acute) Adenocarcinoma of duodenum (Acute) Peripheral neuropathy (Acute) Venous insufficiency (Acute) Plantar fascial fibromatosis of left foot (Acute) Ulcer of left foot, limited to breakdown of skin (Acute) Type 2 diabetes mellitus with diabetic nephropathy (Acute) Type 2 diabetes mellitus without complication (Acute) Tubulovillous adenoma (Acute ~12/04/22) Tubular adenoma (Acute ~12/04/22) Steatosis (Acute) Duodenal nodule (Acute) Abnormal abdominal CT scan (Acute) Abnormal bowel habits (Acute) Cataracts, bilateral (Acute) Diabetic foot ulcer (Acute) Nausea and vomiting (Acute) Screening for colon cancer (Acute) CKD (chronic kidney disease) (Chronic) JOSE (obstructive sleep apnea) (Chronic) Depression with anxiety (Acute) Diabetic neuropathy (Acute) Obesity (Chronic) Peripheral edema (Acute) Bowel habit changes (Acute) Vitamin B12 deficiency (Acute) Decreased hearing (Acute) Screening for STD (sexually transmitted disease) (Acute) Neuropathic ulcer (Acute) Wound of right foot (Acute) Wound of left foot (Acute) Cellulitis of foot, right (Acute) Foreign body (FB) in soft tissue (Acute) Phimosis (Acute) Depression (Chronic) HTN (hypertension) with goal to be determined (Chronic) Diabetes (Chronic) Medical History Anxiety Calculus of distal left ureter Fatty liver Erectile dysfunction Surgical History History of colonoscopy with polypectomy (~12/04/22) History of esophagogastroduodenoscopy (EGD) (~12/2023) H/O vasectomy History of cholecystectomy Family History Brother Diabetes Asthma Father Diabetes Angina pectoris Kidney failure Acute CVA (cerebrovascular accident) Sister Diabetes Mental and behavioral problem Mother , age 64 DM Diabetes Maternal Grandmother Cancer Social History Smoking/Tobacco Use Status: Never Smoking risk assessment performed?: Yes Alcohol Intake: current Alcohol Intake frequency: holidays/special occasions only Drug use: Never Substance use type: does not use Household members: children Housing: house Number of Children: 3 current occupation: [employer] What is your relationship status?: Panel score (0-1 are the most socially isolated patients): 0 Do you feel safe at home: Yes Do you feel safe in your relationship?: Yes Sign Out Sign Out Data: Sign Out Comment: [facility] duodenal Ca s/p resection complicated by abscess. Induction chemo Friday - Friday Fever today 101.3, advised to come to ED by [facility] oncology Not neutropenic, labs, viral testing, CXr, UA negative pending: CT a/p, discussion with onc team Last updated by Shana Hollins MD at 05/31/24 23:22
[2024-05-31] MEDS: Gabapentin 300 MG CAP 600 MG PO (22:15)
[2024-05-31 22:45] LABS: ALT 23 U/L (16-63); AST 13 U/L (15-37); Albumin 3.4 g/dL (3.4-5.0); Alkaline Phosphatase 103 U/L (46-116); BUN 16 mg/dL (7-18); Bilirubin, Total 0.67 mg/dL (0.2-1.0); CO2 29.8 mmol/L (21.0-32.0); CREATININE 1.1 mg/dL (0.70-1.30); Calcium 9.3 mg/dL (8.5-10.1); Estimated GFR 82.29 (mL/min/1.73m2); Glucose 247 mg/dL (74-106); Lipase 25 U/L (16-77); Total Protein 7.5 g/dL (6.4-8.2)
[2024-05-31 22:45] LABS: COVID-19 PCR Negative (Negative); Influenza A PCR Negative (Negative); Influenza B PCR Negative (Negative); RSV PCR Negative (Negative)
[2024-05-31 22:47] LABS: Source Nasopharynx
[2024-05-31 22:58] LABS: Anion Gap 10.2 mmol/L (3-11); Chloride 94 mmol/L (98-107); Potassium 3.4 mmol/L (3.5-5.1); Sodium 134 mmol/L (136-145)
--- NOTE | 2024-05-31 23:07 | DI.VRAD_ITS ---
PROCEDURE INFORMATION: Exam: XR Chest Exam date and time: 05/31/2024 9:52 PM Age: 48 years old Clinical indication: Fever TECHNIQUE: Imaging protocol: Radiologic exam of the chest. Views: 1 view. COMPARISON: CT CHEST PE ABD PELVIS W 03/24/2024 4:20 PM FINDINGS: Tubes, catheters and devices: Right chest wall port. Lungs: Unremarkable. No consolidation. Pleural spaces: Unremarkable. No pleural effusion. No pneumothorax. Heart/Mediastinum: Unremarkable. No cardiomegaly. Bones/joints: Unremarkable. IMPRESSION: No acute findings. Dictated and Authenticated by: Davy Zamorano MD. Ordering:[facility] Gunjan Thapa MD
[2024-05-31 23:08] LABS: Bilirubin Negative (Negative); Blood Negative (Negative); Clarity Sl Cloudy (Clear); Glucose 100 mg/dL (Negative); Ketones Trace mg/dL (Negative); Leukocyte Esterase Negative (Negative); Nitrite Negative (Negative); Specific Gravity 1.025 (1.005-1.025)
[2024-05-31 23:25] LABS: Bacteria Few HPF (Negative); C & S Indicated? C&S Done As Ordered; Casts Negative LPF (Negative); Crystals Negative HPF (Negative); Epithelial Cells Few HPF (Negative); Mucus Trace (Negative); Other Cells Moderate Yeast (Negative); RBC 0-2 HPF (0-2); WBC 0-2 HPF (0-5)
[2024-05-31] MEDS: Omnipaque 350 MG/ML 100 ML BTL IJ (23:38)
[2024-05-31] MEDS: Normal Saline Flush 10 ML SYR IVP (23:39)
[2024-05-31] MEDS: Normal Saline - Diluent 50 ML VIAL IJ (23:39)
[2024-06-01] VITALS (25 sets, daily range): BP systolic 154–183; BP diastolic 88–121; PULSE 80–88; RESP 12–28; O2SAT 93–98
--- NOTE | 2024-06-01 00:59 | DI.VRAD_ITS ---
PROCEDURE INFORMATION: Exam: CT Abdomen And Pelvis With Contrast Exam date and time: 06/01/2024 12:18 AM Age: 48 years old Clinical indication: Abdominal pain; Prior surgery; Surgery date: 1-6 months; Surgery type: Whipple 03/01/24. Prior cholecystectomu; Patient HX: HX of whipple and abscess, pain, fever TECHNIQUE: Imaging protocol: Computed tomography of the abdomen and pelvis with contrast. Radiation optimization: All CT scans at this facility use at least one of these dose optimization techniques: automated exposure control; mA and/or kV adjustment per patient size (includes targeted exams where dose is matched to clinical indication); or iterative reconstruction. Contrast material: OMNIPAQUE 350; Contrast volume: 100 ml; Contrast route: INTRAVENOUS (IV); COMPARISON: CT CHEST PE ABD PELVIS W 03/24/2024 4:20 PM FINDINGS: Liver: Hepatic steatosis. Gallbladder and biliary ducts: Normal. No calcified stones. No ductal dilation. Pancreas: Unremarkable. Spleen: Normal. Adrenal glands: Normal. No mass. Kidneys and ureters: Normal. No hydronephrosis. Stomach and bowel: No pneumatosis or portal/mesenteric venous gas. Post Whipple anatomy. There is relative mild fat stranding in the fat adjacent to loops of jejunum in the right upper quadrant/epigastric area without definite discernible wall thickening of the bowel (though the bowel is under distended and the wall is difficult to evaluate) and no abscess or pneumoperitoneum. Fat stranding may signify recent postsurgical change or could signify jejunal enteritis. No postoperative priors for comparison. Appendix: Normal appendix. Intraperitoneal space: No pneumoperitoneum or abscess. Vasculature: See Stomach and bowel finding. Lymph nodes: Unremarkable. Urinary bladder: Unremarkable as visualized. Reproductive: Unremarkable as visualized. Bones/joints: Unremarkable. No acute fracture. Soft tissues: Unremarkable. IMPRESSION: Post Whipple anatomy. There is relative mild fat stranding in the fat adjacent to loops of jejunum in the right upper quadrant/epigastric area without definite discernible wall thickening of the bowel (though the bowel is under distended and the wall is difficult to evaluate) and no abscess or pneumoperitoneum. Fat stranding may signify recent postsurgical change or could signify jejunal enteritis. No postoperative priors for comparison. Dictated and Authenticated by: Davy Zamorano MD. Ordering:CHAVO Salazar MD
--- NOTE | 2024-06-01 01:15 | NUR.NOTE ---
0113 attempted to call [facility] for heme-onc consult. [facility] phone system still on downtime.Nursing Note:
--- NOTE | 2024-06-01 01:30 | NUR.NOTE ---
[id number] [facility] phones back up, was able to request consult.Nursing Note:
--- NOTE | 2024-06-01 02:10 | W.EDPROG ---
Date of service: 06/01/24 Time of Service: 02:14 Medical Decision Making Patient was signed out to me by my colleague Dr. Hollins, please refer to her HPI, physical exam, assessment and plan. At time of signout we are awaiting CT imaging and lab results. Laboratory workup shows no neutropenia, minimal white count at 12.18. Lactate normal. Electrolytes stable. Lipase normal, urinalysis negative for infection, COVID flu and RSV are negative. Chest x-ray negative for pneumonia, CT scan of the abdomen shows mild fat stranding in the fat adjacent to the loops of the jejunum in the right upper quadrant in the epigastric area with no evidence of wall thickening of the bowel or evidence of abscess. Patient feels well, he has had no fever while here. He remains hemodynamically stable. I did contact of [facility] oncology, and discussed the case with him as well as the imaging. He has no other additional recommendations. Blood cultures and urine cultures have already been performed. These will be monitored. Oncology does feel that there is no indication for antibiotic administration at this time which I agree with as there is no clear definitive source, he has no evidence of sepsis, and no signs of an identifiable infectious etiology otherwise. Patient will be discharged home. He is not neutropenic. Discussed red flags for which to return. I have extensively reviewed the treatment plan and discharge instructions with the patient and their family. I have addressed all patient concerns at this time. The patient and family was made aware of what symptoms to monitor for that would warrant a return to the emergency department. Discussed the plan with the patient and family, they demonstrate verbal understanding and agreement with our assessment and plan at this time. The documentation in this chart was dictated using [employer] dictation software. Please excuse any dictation errors. FINDINGS: Tubes, catheters and devices: Right chest wall port. Lungs: Unremarkable. No consolidation. Pleural spaces: Unremarkable. No pleural effusion. No pneumothorax. Heart/Mediastinum: Unremarkable. No cardiomegaly. Bones/joints: Unremarkable. IMPRESSION: No acute findings. Thank you for allowing us to participate in the care of your patient. Dictated and Authenticated by: Davy Zamorano MD 05/31/2024 11:07 PM Eastern Time ([place] & [place]) FINDINGS: Liver: Hepatic steatosis. Gallbladder and biliary ducts: Normal. No calcified stones. No ductal dilation. Pancreas: Unremarkable. Spleen: Normal. Adrenal glands: Normal. No mass. Kidneys and ureters: Normal. No hydronephrosis. Stomach and bowel: No pneumatosis or portal/mesenteric venous gas. Post Whipple anatomy. There is relative mild fat stranding in the fat adjacent to loops of jejunum in the right upper quadrant/epigastric area without definite discernible wall thickening of the bowel (though the bowel is under distended and the wall is difficult to evaluate) and no abscess or pneumoperitoneum. Fat stranding may signify recent postsurgical change or could signify jejunal enteritis. No postoperative priors for comparison. Appendix: Normal appendix. Intraperitoneal space: No pneumoperitoneum or abscess. Vasculature: See Stomach and bowel finding. Lymph nodes: Unremarkable. Urinary bladder: Unremarkable as visualized. Reproductive: Unremarkable as visualized. Bones/joints: Unremarkable. No acute fracture. Soft tissues: Unremarkable. IMPRESSION: Post Whipple anatomy. There is relative mild fat stranding in the fat adjacent to loops of jejunum in the right upper quadrant/epigastric area without definite discernible wall thickening of the bowel (though the bowel is under distended and the wall is difficult to evaluate) and no abscess or pneumoperitoneum. Fat stranding may signify recent postsurgical change or could signify jejunal enteritis. No postoperative priors for comparison. Thank you for allowing us to participate in the care of your patient. Dictated and Authenticated by: Davy Zamorano MD 06/01/2024 12:58 AM Eastern Time ([place] & [place] Quality:[facility] Health Related Social Needs: No Data to Display Sign Out Sign Out Data: Sign Out Comment: PMH duodenal Ca s/p resection complicated by abscess. Induction chemo Friday - Friday Fever today 101.3, [place] [facility] [place] Not neutropenic, labs, viral testing, CXr, UA negative pending: CT a/p, discussion with onc team Last updated by Shana Hollins MD at 05/31/24 23:22 Discharge Plan Disposition Patient Disposition: Home Condition: Good Discharge Details Chief Complaint: GenMedical Clinical Impression: Fever of unknown origin Primary Care Provider: Olga Hoffman ED Provider: Tim Garcia Home Meds and New Rx's Prescriptions: No Action gabapentin 600 mg tablet 600 mg PO HS PRN magnesium oxide 400 mg magnesium tablet 400 mg PO DAILY Zenpep 40,000-126,000- 168,000 unit capsule,delayed release(DR/EC) 4 cap PO TID [place] Comments[place] [facility] [place] Instructions: 2 caps administer with meals and 1 cap with snacks omeprazole 20 mg capsule,delayed release(DR/EC) 20 mg PO DAILY citalopram [Celexa] 10 mg tablet 40 mg PO DAILY furosemide 20 mg tablet 40 mg PO BID montelukast 10 mg tablet 10 mg PO DAILY ondansetron 4 mg tablet,disintegrating 4 mg PO Q8H PRN (Reason: nausea and vomiting) Qty: 30 0RF acetaminophen 325 mg tablet 650 mg PO Q6H PRN Patient Comments: TAKE TWO TABLETS BY MOUTH EVERY 8 HOURS NEEDED prochlorperazine maleate 10 mg tablet 10 mg PO Q8H PRN Patient Comments: TAKE ONE TABLET BY MOUTH EVERY 6 HOURS NEEDED FOR NAUSEA Baqsimi 3 mg/actuation spray,non-aerosol 3 mg INTRANASAL PRN Patient Comments: INSTILL 1 SPRAY NASALLY DIRECTED NEEDED FOR SEVERE HYPOGLYCEMIA NOT RESPONDING TO ORAL TREATMENT FOR LOW BLOOD SUGAR ergocalciferol (vitamin D2) 1,250 mcg (50,000 unit) capsule 5,000 mcg PO .weekly Patient Comments: TAKE ONE CAPSULE BY MOUTH ONCE A WEEK insulin lispro [Humalog U-100 Insulin] 100 unit/mL solution Patient Comments: INJECT 0-11 UNITS SUBCUTANEOUSLY THREE TIMES A DAY WITH MEALS DIRECTED tadalafil 20 mg tablet 20 mg PO DAILY PRN Patient Comments: TAKE 1 TABLET BY MOUTH EVERY DAY NEEDED loratadine [Claritin] 10 mg tablet 10 mg PO DAILY potassium chloride 10 mEq tablet extended release 10 meq PO DAILY Patient Comments: TAKE ONE TABLET BY MOUTH TWICE A DAY insulin glargine-yfgn [Semglee(insulin glarg-yfgn)Pen] 100 unit/mL (3 mL) insulin pen 30 unit SUBCUT DAILY Patient Comments: INJECT 10 UNITS UNDER THE SKIN EVERY MORNING Discharge Instructions Instructions: Fever of Unknown Origin Additional Instructions: At this time your laboratory workup does not show any clear evidence of active infection. You may have been exposed to a virus which brought about your fever, or there could be a very mild underlying infection that has not made itself otherwise evident. Please continue to monitor your symptoms closely. Follow-up closely with your oncologist. If you notice any worsening of your symptoms, or any new symptoms such as vomiting, diarrhea, fever, chills, shortness of breath, chest pain, numbness, weakness, or fainting , please return immediately to the emergency department for reevaluation. Please follow up with your primary care provider as soon as possible for reassessment and reevaluation. As always, it was a pleasure participating in your medical care today. Referrals: Olga Hoffman [Primary Care Provider] -
== END 2024-06-01 02:33 | disposition home or self-care (01) ==
PROVIDERS: Emergency Medicine; Physician Assistant; Emergency Provider Student in an Organized Health Care Education/Training Program; PCP Nurse Practitioner Family
DX: R50.9 Fever, unspecified (principal); C17.0 Malignant neoplasm of duodenum; I10 Essential (primary) hypertension; E11.40 Type 2 diabetes mellitus with diabetic neuropathy, unspecified; Z79.4 Long term (current) use of insulin; Z92.21 Personal history of antineoplastic chemotherapy
CPT/HCPCS: 00123; 36415; 80053; 83690; 87040; 87637; 93005; 96360; 96361; 99285; 71045; 74177; 81003; 81015; 83605; 85025; 87086; 93010; 99284; J3490

== ENCOUNTER 2024-06-13 00:22 | Outpatient (RCR) | payer OTHER, SELFPAY ==
--- OUTSIDE RECORDS SUMMARY | 2024-05-21 01:05 | XMS_ITS | Data Portability ---
Author Organization [place] - [facility], [facility] [place] [address] Assessment Encounter Date Assessment Date Assessment LastModified by Organization Details LastModified Time 02/23/2024 02/23/2024 The total time devoted to today's encounter, including both the itwx-un-qsvy time with the patient and/or family/caregiv er and nlh-cgog-ay-fa ce time I personally spent is 40 minutes. Flu vaccine: current Comirnaty: declines Td: current PCV20: PPSV23 in 2020 Shingrix: n/a RSV: n/a Follow-up in 1 Months. Call or RTO sooner if needs arise. Not available 02/23/2024 09:35:32 03/24/2024 03/24/2024 Charles is about 3 weeks post op, presented with significant hypotension, lethargy, altered mental status. SBP in the 80s when sitting, unable to be auscultated with standing up. Attempted to resuscitate him with 1L NS but, although he did feel a bit better when supine, he didn't feel any better upon sitting up. SBP upon sitting remained in the 80s. Remained lethargic. Discussed need for ED workup; rule out sepsis, check blood and urine cultures, urgent labs, monitoring, etc. He was agreeable. He went by private car, with his partner who is an RN. eoleson Not available 03/24/2024 16:03:45 04/23/2024 04/23/2024 The total time devoted to today's encounter, including both the edmy-cj-xkga time with the patient and/or family/caregiv er and hzo-kmsa-zh-fa ce time I personally spent is 40 minutes. Flu vaccine: current Td: current- due 2026 PCV20: PPSV23 in 2020 Shingrix: n/a RSV: n/a CRC screening: colo last 12.04.22, tubular adenoma. Follow-up in 1 Months. Call or RTO sooner if needs arise. Not available 04/23/2024 12:47:37 Plan of Treatment Reminders Order Date Submit Date Provider Last Modified By Organization Details Last Modified Time Details Appointments Medical Nutrition Therapy 60 2023 02:00P M Not available Not available Not available Office Visit 30 2023 03:00P M Not available Not available Not available Lab CMP, serum or plasma - 1Y, 1P 2023 024 [facility] (Registration ), [address] [place] [address] [place], [address], 02/02/2024 16:16:08 CBC w/ diff - 1Y, 1P [address] [facility] (Registration ), [address] [place] [address] [place], [address], 02/03/2024 08:15:07 HbA1c (hemoglob in A1c), blood - 1Y, 1P [address] [facility] (Registration ), [address] [place] [address] [place], [address], 02/03/2024 08:14:57 hemoglobi n (Hb), fingersti ck, blood 2023 024 [facility], [address] [place] [address], [id number], 03/24/2024 16:03:13 hemoglobi n A1C, fingersti ck 2023 024 [facility], [address] [place] [address], [phone], 04/23/2024 13:02:39 Referral vascular surgeon referral 2023 024 [facility] Vascular Surgery, [address] [facility] [place], [address], 04/23/2024 14:43:43 endocrino logy referral 2023 024 [facility], [address] [place], [address], 02/23/2024 14:01:03 Procedures IV infusion, hydration , 31-60 min (PROC) 2023 024 [email or web address] Not available 03/24/2024 16:03:11 Surgeries None recorded. Imaging None recorded. Medication Orders citalopra m 40 mg tablet 2023 024 [facility], [address] [place], [address], 02/23/2024 12:06:26 lorazepam 0.5 mg tablet 2023 024 [email or web address], [address] [place], [address], 04/02/2024 10:55:56 Patient TargetsNo targets recorded. Patient Instructions Encounter Date Encounter Id Patient Instructions Last Modified By Organization Details Last Modified Time 04/23/2024 [id number] Increase semglee to 13 units daily for 7 days, then if sugar still greater than 120, increase to 16 units. Not available 04/23/2024 12:39:31 Reason for Referral [employer] Referral for Nodu le of subcutaneous tissue of left foot provider is wondering why this pt has not been contacted yet - resending Referring Physician: [facility], Encounter Date: 09/23/2023 Sleep Medicine Referral for Obstructive sleep apnea syndrome Referring Physician: [facility], Encounter Date: 11/07/2023 Urologist Referral for Erect ile dysfunction Referring Physician: [facility], Encounter Date: 11/07/2023 EGD Referral for Digestive s ystem finding Referring Physician: Olga Marcus [facility] Reshma, Encounter Date: 11/07/2023 Plastic Surgeon Referral for Gynecomastia Referring Physician: Olga Marcus [facility], Encounter Date: 12/05/2023 Endocrinology Referral for T ype 2 diabetes mellitus without complication Referring Physician: Olga Marcus [facility], Encounter Date: 02/23/2024 Vascular Surgeon Referral fo r Cramp in lower limb Referring Physician: Olga Marcus [facility], Encounter Date: 02/23/2024 Well Service Floorperson Referral f or Type 2 diabetes mellitus without complication referral for Freestyle Lina 3 Referring Physician: Olga Marcus [facility], Encounter Date: 04/02/2024 Physical Therapist Referral for Pain of left shoulder joint Referring Physician: Olga Marcus [facility], Encounter Date: 04/20/2024 Results Created Date Observation Date Name Description Value Unit Range Abnormal Flag Note LastModifiedBy Organization Detail LastModifiedTime 02/02/20 24 02/02/2024 COMPR EHENS KIRAN METAB OLIC PANEL calcium 9.3 mg/dL 8.5-10 .1 normal Not Available [address] [place], [address] 02/02/2024 16:16:08 02/02/20 24 02/02/2024 COMPR EHENS KIRAN METAB OLIC PANEL glucose 234 mg/dL 74-106 high Not Available Debra floyd [address] [place], [address] 02/02/2024 16:16:08 02/02/20 24 02/02/2024 COMPR EHENS KIRAN METAB OLIC PANEL BUN 13 mg/dL 7-18 normal Not Available Debra floyd [address] [place], [address] 02/02/2024 16:16:08 02/02/20 24 02/02/2024 COMPR EHENS KIRAN METAB OLIC PANEL creatinine 1.2 mg/dL 0.70-1 .30 normal Not Available [address] [place], [address] 02/02/2024 16:16:08 02/02/20 24 02/02/2024 COMPR EHENS KIRAN METAB OLIC PANEL estimated GFR 74.13 mL/min /1.73m 2 The eGFR is calcu lated from a serum creat inine using the CKD-E PI 2020 equat ion. Other varia bles requi red for the equat ion are gende r and age; this equat ion does not inclu de a race coeff icien t. This equat ion has simil ar overa ll perfo rmanc e to previ ous equat ions excep t value s may diffe r, in parti cular , in patie nts with highe r value s of eGFR and young er-ag ed adult s. Not Available [address] [place], [address] 02/02/2024 16:16:08 02/02/20 24 02/02/2024 COMPR EHENS KIRAN METAB OLIC PANEL total protein 7.4 g/dL 6.4-8. 2 normal Not Available [address] [place], [address] 02/02/2024 16:16:08 02/02/20 24 02/02/2024 COMPR EHENS KIRAN METAB OLIC PANEL albumin 3.8 g/dL 3.4-5. 0 normal Not Available [address] [place], [address] 02/02/2024 16:16:08 02/02/20 24 02/02/2024 COMPR EHENS KIRAN METAB OLIC PANEL bilirubin, total 0.4 mg/dL 0.2-1. 0 normal Not Available [address] [place], [address] 02/02/2024 16:16:08 02/02/20 24 02/02/2024 COMPR EHENS KIRAN METAB OLIC PANEL alk phos 94 U/L 46-116 normal Not Available [address] [place], [address] 02/02/2024 16:16:08 02/02/20 24 02/02/2024 COMPR EHENS KIRAN METAB OLIC PANEL sodium 138 mmol/ L 136-14 5 normal Not Available [address] [place], [address] 02/02/2024 16:16:08 02/02/20 24 02/02/2024 COMPR EHENS KIRAN METAB OLIC PANEL potassium 4.2 mmol/ L 3.5-5. 1 normal Not Available [address] [place], [address] 02/02/2024 16:16:08 02/02/20 24 02/02/2024 COMPR EHENS KIRAN METAB OLIC PANEL chloride 98 mmol/ L 98-107 normal Not Available [address] [place], [address] 02/02/2024 16:16:08 02/02/20 24 02/02/2024 COMPR EHENS KIRAN METAB OLIC PANEL CO2 31.5 mmol/ L 21.0-3 2.0 normal Not Available [address] [place], [address] 02/02/2024 16:16:08 02/02/20 24 02/02/2024 COMPR EHENS KIRAN METAB OLIC PANEL anion gap 8.5 mmol/ L 3-11 normal Not Available [address] [place], [address] 02/02/2024 16:16:08 02/02/20 24 02/02/2024 COMPR EHENS KIRAN METAB OLIC PANEL AST 18 U/L 15-37 normal Not Available Debra floyd [address] [place], [address] 02/02/2024 16:16:08 02/02/20 24 02/02/2024 COMPR EHENS KIRAN METAB OLIC PANEL ALT 38 U/L 16-63 normal Not Available Debra floyd [address] [place], [address] 02/02/2024 16:16:08 02/02/20 24 02/02/2024 COMPL ETE BLOOD COUNT W/DIF F WBC 8.18 10_3/ uL 4.4-10 .8 normal Not Available [address] [place], [address] 02/02/2024 16:22:50 02/02/20 24 02/02/2024 COMPL ETE BLOOD COUNT W/DIF F RBC 6.37 10_6/ uL 4.36-5 .78 high Not Available [address] [place], [address] 02/02/2024 16:22:50 02/02/20 24 02/02/2024 COMPL ETE BLOOD COUNT W/DIF F HGB 15.6 g/dL 13.5-1 7.5 normal Not Available [address] [place], [address] 02/02/2024 16:22:50 02/02/20 24 02/02/2024 COMPL ETE BLOOD COUNT W/DIF F HCT 49.7 % 40.0-5 0.0 normal Not Available [address] [place], [address] 02/02/2024 16:22:50 02/02/20 24 02/02/2024 COMPL ETE BLOOD COUNT W/DIF F MCV 78 fL 80-95 low Not Available [address] [place], [address] 02/02/2024 16:22:50 02/02/20 24 02/02/2024 COMPL ETE BLOOD COUNT W/DIF F MCH 24.5 pg 27.0-3 3.0 low Not Available [address] [place], [address] 02/02/2024 16:22:50 02/02/20 24 02/02/2024 COMPL ETE BLOOD COUNT W/DIF F MCHC 31.4 % 32.0-3 6.0 low Not Available [address] [place], [address] 02/02/2024 16:22:50 02/02/20 24 02/02/2024 COMPL ETE BLOOD COUNT W/DIF F RDW 15.0 % 11.8-1 4.1 high Not Available [address] [place], [address] 02/02/2024 16:22:50 02/02/20 24 02/02/2024 COMPL ETE BLOOD COUNT W/DIF F platelet count 208 10_3/ uL 130-40 0 normal Not Available [address] [place], [address] 02/02/2024 16:22:50 02/02/20 24 02/02/2024 COMPL ETE BLOOD COUNT W/DIF F MPV 11.7 fL 8.0-11 .0 high Not Available [address] [facility] [place], [address] 02/02/2024 16:22:50 02/02/20 24 02/02/2024 COMPL ETE BLOOD COUNT W/DIF F neutrophils % 70.5 % Not Available [address] [facility] [place], [address] 02/02/2024 16:22:50 02/02/20 24 02/02/2024 COMPL ETE BLOOD COUNT W/DIF F lymphocytes % 22.4 % Not Available [address] [facility] [place], [address] 02/02/2024 16:22:50 02/02/20 24 02/02/2024 COMPL ETE BLOOD COUNT W/DIF F monocytes % 4.5 % Not Available [address] [facility] [place], [address] 02/02/2024 16:22:50 02/02/20 24 02/02/2024 COMPL ETE BLOOD COUNT W/DIF F eosinophils % 1.5 % Not Available [address] [facility] [place], [address] 02/02/2024 16:22:50 02/02/20 24 02/02/2024 COMPL ETE BLOOD COUNT W/DIF F basophils % 0.6 % Not Available [address] [facility] [place], [address] 02/02/2024 16:22:50 02/02/20 24 02/02/2024 COMPL ETE BLOOD COUNT W/DIF F immature grans % 0.5 % Not Available [address] [place], [address] 02/02/2024 16:22:50 02/02/20 24 02/02/2024 COMPL ETE BLOOD COUNT W/DIF F nucleated RBC 0.0 % 0.0-0. 3 normal Not Available [address] [place], [address] 02/02/2024 16:22:50 02/02/20 24 02/02/2024 COMPL ETE BLOOD COUNT W/DIF F absolute neutrophil count 5.77 10_3/ uL 1.2-6. 7 normal Not Available [address] [place], [address] 02/02/2024 16:22:50 02/02/20 24 02/02/2024 COMPL ETE BLOOD COUNT W/DIF F absolute lymphocyte count 1.83 10_3/ uL 1.2-3. 4 normal Not Available [address] [place], [address] 02/02/2024 16:22:50 02/02/20 24 02/02/2024 COMPL ETE BLOOD COUNT W/DIF F absolute monocyte count 0.37 10_3/ uL 0.1-0. 8 normal Not Available [address] [place], [address] 02/02/2024 16:22:50 02/02/20 24 02/02/2024 COMPL ETE BLOOD COUNT W/DIF F absolute eosinophil count 0.12 10_3/ uL 0.0-0. 7 normal Not Available [address] [place], [address] 02/02/2024 16:22:50 02/02/20 24 02/02/2024 COMPL ETE BLOOD COUNT W/DIF F absolute basophil count 0.05 10_3/ uL 0.0-0. 2 normal Not Available [address] [place], [address] 02/02/2024 16:22:50 02/02/20 24 02/02/2024 COMPL ETE BLOOD COUNT W/DIF F diff comment RBC Morph Review ed Not Available [address] [place], [address] 02/02/2024 16:22:50 02/02/20 24 02/02/2024 COMPL ETE BLOOD COUNT W/DIF F RBC morphology Normal Not Available [address] [place], [address] 02/02/2024 16:22:50 02/02/20 24 02/02/2024 HEMOG LOBIN A1C hemoglobin A1C 8.2 % <5.7 high Refer ence Range s <5.7 Bren l 5.7-6 .4% Predi abete s 6.5% or great er Diagn ostic for diabe gene (if confi rmed) Refer ences : 1. Ameri can Diabe gene Assoc iatio n. Clas sific ation and Diagn osis of Diabe gene. Diabe gene Care 2019 Sep; 2(Sup pleme nt 1):S1 3-s28 . Not Available [address] [place], [address] 02/02/2024 16:34:25 02/24/20 24 02/24/2024 GRAM STAIN gram stain Gram Stain GRAM STAIN (REPO RT) No White Blood Cells Moder ate Gram Posit kiran Cocci ORGAN ISM ID: 1.1 ANTIB IOTIC INTER PRETA TION KING STATU S Cipro floxa sony S <=0.5 F Genta micin S <=0.5 F Trime thopr im/Lord lfame thoxa zole S <=10 F Dapto mycin S 0.25 F Eryth romyc in S <=0.2 5 F Oxaci llin S 0.5 F Vanco mycin S <=0.5 F Not Available [address] [place], [address] 03/03/2024 15:41:49 02/24/20 24 02/29/2024 WOUND AEROB IC CULTU RE wound aerobic culture Wound Aerob ic Cultu re Group B strep tococ ci remai n unive rsall y susce ptibl e to penic illin , ampic illin , and cefaz richard. Resis tance to clind amyci n can occur . ACTIO N SUSCE PTIBI LITY TO FOLLO W ACTIO N IDENT IFICA TION TO FOLLO W APPEA ANAT Mixed Gram Posit kiran Annabelle APPEA ANAT Gram Posit kiran Annabelle APPEA ANAT Gram Posit kiran Annabelle APPEA ANAT Gram Posit kiran Annabelle APPEA ANAT Gram Posit kiran Annabelle APPEA ANAT Gram Posit kiran Annabelle APPEA ANAT Gram Posit kiran Annabelle GROWT H(REP ORT) MODER ATE GROWT H GROWT H(REP ORT) MODER ATE GROWT H GROWT H(REP ORT) MODER ATE GROWT H GROWT H(REP ORT) MODER ATE GROWT H GROWT H(REP ORT) MODER ATE GROWT H GROWT H(REP ORT) MODER ATE GROWT H GROWT H(REP ORT) MODER ATE GROWT H Day 1 Resul t ISOLA GENE BELOW Day 2 Resul t ISOLA GENE BELOW Day 3 Resul t ISOLA GENE BELOW Day 4 Resul t ISOLA GENE BELOW O:STA AUR (ORGA NISM ID: 1.1) - STAPH YLOCO CCUS AUREU S Wound Aerob ic Cultu re (ORGA NISM ID: 1.1) - GROWT H(REP ORT) (ORGA NISM ID: 1.1) - MODER ATE GROWT H O:STR AGA (ORGA NISM ID: 1.2) - STREP TOCOC CUS AGALA CTIAE (GP B) Wound Aerob ic Cultu re (ORGA NISM ID: 1.2) - GROWT H(REP ORT) (ORGA NISM ID: 1.2) - MODER ATE GROWT H Not Available [address] [place], [address] 03/03/2024 15:41:47 02/24/20 24 02/26/2024 ANAER OBIC CULTU RE anaerobic culture Anaer obic Cultu re 02/25 PRELI MINAR Y REPOR T: No anaer obic growt h in 2 days. Not Available [address] [place], [address] 02/26/2024 12:18:00 02/24/20 24 02/26/2024 ANAER OBIC CULTU RE anaerobic culture Anaer obic Cultu re 02/25 PRELI MINAR Y REPOR T: No anaer obic growt h in 2 days. Not Available [address] [place], [address] 02/28/2024 14:10:27 02/24/20 24 03/01/2024 ANAER OBIC CULTU RE anaerobic culture O:ANG NR (ORGA NISM ID: 1.1) - Anaer obic gram negat kiran denilson Anaer obic Cultu re (ORGA NISM ID: 1.1) - GROWT H(REP ORT) (ORGA NISM ID: 1.1) - RARE GROWT H Not Available [address] [place], [address] 03/01/2024 12:12:05 02/24/20 24 03/03/2024 ANAER OBIC CULTU RE anaerobic culture O:ANG NR (ORGA NISM ID: 1.1) - Anaer obic gram negat kiran denilson Anaer obic Cultu re (ORGA NISM ID: 1.1) - GROWT H(REP ORT) (ORGA NISM ID: 1.1) - RARE GROWT H Not Available [address] [place], [address] 03/03/2024 15:39:46 02/26/20 24 02/26/2024 COMPR EHENS KIRAN METAB OLIC PANEL calcium 9.2 mg/dL 8.5-10 .1 normal Not Available [address] [place], [address] 02/26/2024 12:45:03 02/26/20 24 02/26/2024 COMPR EHENS KIRAN METAB OLIC PANEL glucose 275 mg/dL 74-106 high Not Available Debra floyd [address] [place], [address] 02/26/2024 12:45:03 02/26/20 24 02/26/2024 COMPR EHENS KIRAN METAB OLIC PANEL BUN 14 mg/dL 7-18 normal Not Available Debra floyd [address] [place], [address] 02/26/2024 12:45:03 02/26/20 24 02/26/2024 COMPR EHENS KIRAN METAB OLIC PANEL creatinine 1.1 mg/dL 0.70-1 .30 normal Not Available [address] [place], [address] 02/26/2024 12:45:03 02/26/20 24 02/26/2024 COMPR EHENS KIRAN METAB OLIC PANEL estimated GFR 82.29 mL/min /1.73m 2 The eGFR is calcu lated from a serum creat inine using the CKD-E PI 2020 equat ion. Other varia bles requi red for the equat ion are gende r and age; this equat ion does not inclu de a race coeff icien t. This equat ion has simil ar overa ll perfo rmanc e to previ ous equat ions excep t value s may diffe r, in parti cular , in patie nts with highe r value s of eGFR and young er-ag ed adult s. Not Available [address] [place], [address] 02/26/2024 12:45:03 02/26/20 24 02/26/2024 COMPR EHENS KIRAN METAB OLIC PANEL total protein 7.7 g/dL 6.4-8. 2 normal Not Available [address] [place], [address] 02/26/2024 12:45:03 02/26/20 24 02/26/2024 COMPR EHENS KIRAN METAB OLIC PANEL albumin 3.5 g/dL 3.4-5. 0 normal Not Available [address] [place], [address] 02/26/2024 12:45:03 02/26/20 24 02/26/2024 COMPR EHENS KIRAN METAB OLIC PANEL bilirubin, total 0.3 mg/dL 0.2-1. 0 normal Not Available [address] [place], [address] 02/26/2024 12:45:03 02/26/20 24 02/26/2024 COMPR EHENS KIRAN METAB OLIC PANEL alk phos 104 U/L 46-116 normal Not Available [address] [place], [address] 02/26/2024 12:45:03 02/26/20 24 02/26/2024 COMPR EHENS KIRAN METAB OLIC PANEL sodium 135 mmol/ L 136-14 5 low Not Available [address] [place], [address] 02/26/2024 12:45:03 02/26/20 24 02/26/2024 COMPR EHENS KIRAN METAB OLIC PANEL potassium 3.7 mmol/ L 3.5-5. 1 normal Not Available [address] [place], [address] 02/26/2024 12:45:03 02/26/20 24 02/26/2024 COMPR EHENS KIRAN METAB OLIC PANEL chloride 98 mmol/ L 98-107 normal Not Available [address] [place], [address] 02/26/2024 12:45:03 02/26/20 24 02/26/2024 COMPR EHENS KIRAN METAB OLIC PANEL CO2 31.2 mmol/ L 21.0-3 2.0 normal Not Available [address] [place], [address] 02/26/2024 12:45:03 02/26/20 24 02/26/2024 COMPR EHENS KIRAN METAB OLIC PANEL anion gap 5.8 mmol/ L 3-11 normal Not Available [address] [place], [address] 02/26/2024 12:45:03 02/26/20 24 02/26/2024 COMPR EHENS KIRAN METAB OLIC PANEL AST 16 U/L 15-37 normal Not Available Debra floyd [address] [place], [address] 02/26/2024 12:45:03 02/26/20 24 02/26/2024 COMPR EHENS KIRAN METAB OLIC PANEL ALT 36 U/L 16-63 normal Not Available Debra floyd [address] [place], [address] 02/26/2024 12:45:03 02/26/20 24 02/26/2024 ROSALIND TIN ferritin 35 NG/mL 26-388 normal Not Available [address] [place], [address] 02/26/2024 12:45:04 02/26/20 24 02/26/2024 ROSALIND TIN ferritin 35 NG/mL 26-388 normal Not Available [address] [place], [address] 02/26/2024 15:30:37 02/26/20 24 02/26/2024 CEA cea 1.7 NG/mL see note % Distr ibuti on of CEA (ng/m L): 0.0 - 2.5 in 98.2% of Nonsm okers and 87.3% of Smoke rs 2.6 - 5 in 1.8% of Nonsm okers and 8% of Smoke rs 5.1 - 10.1 in 4.7% of Smoke rs NOTE: Serum CEA low ntrat ion shoul d not be inter peted as absol [place] evide nce for the prese nce or absen ce of rivas walker se. Assay ed on Sieme ns ADVIA [id number] ur XPT using chemi lumin escen t techn ology . Value s obtai janice by diffe rent assay metho ds canno t be used inter mota eay . Test perfo rmed or refer red by [facility] [address] [place] [address] Not Available [address] [facility] [place], [address] 02/27/2024 09:37:25 03/24/20 24 03/24/2024 LACTA TE lactate 2.0 mmol/ L 0.6-1. 4 high Not Available [address] [facility] [place], [address] 03/24/2024 15:26:58 03/24/20 24 03/24/2024 VENOU S BLOOD GAS pH (venous) 7.16 7.31-7 .41 critical low Criti johnie value pH repor dotty to and readb ack from YUMI GREENBERG at 1524 03/24 by LAB.M OOL Not Available [address] [place], [address] 03/24/2024 15:28:58 03/24/20 24 03/24/2024 VENOU S BLOOD GAS pCO2 (venous) 33 mmHg 41-51 low Not Available [address] [place], [address] 03/24/2024 15:28:58 03/24/20 24 03/24/2024 VENOU S BLOOD GAS pO2 (venous) 42 mmHg Not Available [address] [place], [address] 03/24/2024 15:28:58 03/24/20 24 03/24/2024 VENOU S BLOOD GAS TCO2 (venous) 11 mmol/ L 24-29 low Not Available [address] [place], [address] 03/24/2024 15:28:58 03/24/20 24 03/24/2024 VENOU S BLOOD GAS HCO3 (venous) 12 mmol/ L 23-28 low Not Available [address] [place], [address] 03/24/2024 15:28:58 03/24/20 24 03/24/2024 VENOU S BLOOD GAS BE (venous) -17 mmol/ L -2-3 low Not Available [address] [place], [address] 03/24/2024 15:28:58 03/24/20 24 03/24/2024 VENOU S BLOOD GAS O2 sat (venous) 70 % Not Available [address] [place], [address] 03/24/2024 15:28:58 03/24/20 24 03/24/2024 COMPL ETE BLOOD COUNT W/DIF F WBC 13.73 10_3/ uL 4.4-10 .8 high Not Available [facility] (Registration ) [address] [place] [address] [place], [address], 03/24/2024 15:29:00 03/24/20 24 03/24/2024 COMPL ETE BLOOD COUNT W/DIF F RBC 6.69 10_6/ uL 4.36-5 .78 high Not Available [facility] (Registration ) [address] [place] [address] [place], [address], 03/24/2024 15:29:00 03/24/20 24 03/24/2024 COMPL ETE BLOOD COUNT W/DIF F HGB 16.2 g/dL 13.5-1 7.5 normal Not Available [facility] (Registration ) [address] [place] [address] [place], [address], 03/24/2024 15:29:00 03/24/20 24 03/24/2024 COMPL ETE BLOOD COUNT W/DIF F HCT 50.7 % 40.0-5 0.0 high Not Available [facility] (Registration ) [address] [place] [address] [facility] [place], [address], 03/24/2024 15:29:00 03/24/20 24 03/24/2024 COMPL ETE BLOOD COUNT W/DIF F MCV 76 fL 80-95 low Not Available [facility] (Registration ) [address] [place] [address] [facility] [place], [address], 03/24/2024 15:29:00 03/24/20 24 03/24/2024 COMPL ETE BLOOD COUNT W/DIF F MCH 24.2 pg 27.0-3 3.0 low Not Available [facility] (Registration ) [address] [place] [address] [place], [address], 03/24/2024 15:29:00 03/24/20 24 03/24/2024 COMPL ETE BLOOD COUNT W/DIF F MCHC 32.0 % 32.0-3 6.0 normal Not Available [facility] (Registration ) [address] [place] [address] [place], [address], 03/24/2024 15:29:00 03/24/20 24 03/24/2024 COMPL ETE BLOOD COUNT W/DIF F RDW 17.4 % 11.8-1 4.1 high Not Available [facility] (Registration ) [address] [place] [address] [place], [address], 03/24/2024 15:29:00 03/24/20 24 03/24/2024 COMPL ETE BLOOD COUNT W/DIF F platelet count 420 10_3/ uL 130-40 0 high Not Available [facility] (Registration ) [address] [place] [address] [place], [address], 03/24/2024 15:29:00 03/24/20 24 03/24/2024 COMPL ETE BLOOD COUNT W/DIF F MPV 9.8 fL 8.0-11 .0 normal Not Available [facility] (Registration ) [address] [place] [address] [place], [address], 03/24/2024 15:29:00 03/24/20 24 03/24/2024 COMPL ETE BLOOD COUNT W/DIF F neutrophils % 84.6 % Not Available [facility] (Registration ) [address] [place] [address] [place], [address], 03/24/2024 15:29:00 03/24/20 24 03/24/2024 COMPL ETE BLOOD COUNT W/DIF F lymphocytes % 7.6 % Not Available [facility] (Registration ) [address] [place] [address] [place], [address], 03/24/2024 15:29:00 03/24/20 24 03/24/2024 COMPL ETE BLOOD COUNT W/DIF F monocytes % 6.3 % Not Available [facility] (Registration ) [address] [place] [address] [place], [address], 03/24/2024 15:29:00 03/24/20 24 03/24/2024 COMPL ETE BLOOD COUNT W/DIF F eosinophils % 0.2 % Not Available [facility] (Registration ) [address] [place] [address] [place] [facility] [place], [address], 03/24/2024 15:29:00 03/24/20 24 03/24/2024 COMPL ETE BLOOD COUNT W/DIF F basophils % 0.7 % Not Available [facility] (Registration ) [address] [place] [address] [place], [address], 03/24/2024 15:29:00 03/24/20 24 03/24/2024 COMPL ETE BLOOD COUNT W/DIF F immature grans % 0.6 % Not Available [facility] (Registration ) [address] [place] [address] [place], [address], 03/24/2024 15:29:00 03/24/20 24 03/24/2024 COMPL ETE BLOOD COUNT W/DIF F nucleated RBC 0.0 % 0.0-0. 3 normal Not Available [facility] (Registration ) [address] [place] [address] [place], [address], 03/24/2024 15:29:00 03/24/20 24 03/24/2024 COMPL ETE BLOOD COUNT W/DIF F absolute neutrophil count 11.62 10_3/ uL 1.2-6. 7 high Not Available [facility] (Registration ) [address] [place] [address] [place], [address], 03/24/2024 15:29:00 03/24/20 24 03/24/2024 COMPL ETE BLOOD COUNT W/DIF F absolute lymphocyte count 1.04 10_3/ uL 1.2-3. 4 low Not Available [facility] (Registration ) [address] [place] [address] [place], [address], 03/24/2024 15:29:00 03/24/20 24 03/24/2024 COMPL ETE BLOOD COUNT W/DIF F absolute monocyte count 0.86 10_3/ uL 0.1-0. 8 high Not Available [facility] (Registration ) [address] [place] [address] [place], [address], 03/24/2024 15:29:00 03/24/20 24 03/24/2024 COMPL ETE BLOOD COUNT W/DIF F absolute eosinophil count 0.03 10_3/ uL 0.0-0. 7 normal Not Available [facility] (Registration ) [address] [place] [address] [place], [address], 03/24/2024 15:29:00 03/24/20 24 03/24/2024 COMPL ETE BLOOD COUNT W/DIF F absolute basophil count 0.10 10_3/ uL 0.0-0. 2 normal Not Available [facility] (Registration ) [address] [place] [address] [place], [address], 03/24/2024 15:29:00 03/24/20 24 03/24/2024 COMPR EHENS KIRAN METAB OLIC PANEL calcium 8.9 mg/dL 8.5-10 .1 normal Not Available [address] [place], [address] 03/24/2024 16:05:07 03/24/20 24 03/24/2024 COMPR EHENS KIRAN METAB OLIC PANEL glucose 198 mg/dL 74-106 high Not Available Debra [address] [place], [address] 03/24/2024 16:05:07 03/24/20 24 03/24/2024 COMPR EHENS KIRAN METAB OLIC PANEL BUN 14 mg/dL 7-18 normal Not Available Debra [address] [place], [address] 03/24/2024 16:05:07 03/24/20 24 03/24/2024 COMPR EHENS KIRAN METAB OLIC PANEL creatinine 1.5 mg/dL 0.70-1 .30 high Not Available [address] [place], [address] 03/24/2024 16:05:07 03/24/20 24 03/24/2024 COMPR EHENS KIRAN METAB OLIC PANEL estimated GFR 56.72 mL/min /1.73m 2 The eGFR is calcu lated from a serum creat inine using the CKD-E PI 2020 equat ion. Other varia bles requi red for the equat ion are gende r and age; this equat ion does not inclu de a race coeff icien t. This equat ion has simil ar overa ll perfo rmanc e to previ ous equat ions excep t value s may diffe r, in parti cular , in patie nts with highe r value s of eGFR and young er-ag ed adult s. Not Available [address] [place], [address] 03/24/2024 16:05:07 03/24/20 24 03/24/2024 COMPR EHENS KIRAN METAB OLIC PANEL total protein 7.8 g/dL 6.4-8. 2 normal Not Available [address] [place], [address] 03/24/2024 16:05:07 03/24/20 24 03/24/2024 COMPR EHENS KIRAN METAB OLIC PANEL albumin 3.0 g/dL 3.4-5. 0 low Not Available [address] [place], [address] 03/24/2024 16:05:07 03/24/20 24 03/24/2024 COMPR EHENS KIRAN METAB OLIC PANEL bilirubin, total 0.52 mg/dL 0.2-1. 0 normal Not Available [address] [place], [address] 03/24/2024 16:05:07 03/24/20 24 03/24/2024 COMPR EHENS KIRAN METAB OLIC PANEL alk phos 94 U/L 46-116 normal Not Available [address] [place], [address] 03/24/2024 16:05:07 03/24/20 24 03/24/2024 COMPR EHENS KIRAN METAB OLIC PANEL sodium 137 mmol/ L 136-14 5 normal Not Available [address] [place], [address] 03/24/2024 16:05:07 03/24/20 24 03/24/2024 COMPR EHENS KIRAN METAB OLIC PANEL potassium 3.4 mmol/ L 3.5-5. 1 low Not Available [address] [place], [address] 03/24/2024 16:05:07 03/24/20 24 03/24/2024 COMPR EHENS KIRAN METAB OLIC PANEL chloride 99 mmol/ L 98-107 normal Not Available [address] [place], [address] 03/24/2024 16:05:07 03/24/20 24 03/24/2024 COMPR EHENS KIRAN METAB OLIC PANEL CO2 14.3 mmol/ L 21.0-3 2.0 low Not Available [address] [place], [address] 03/24/2024 16:05:07 03/24/20 24 03/24/2024 COMPR EHENS KIRAN METAB OLIC PANEL anion gap 23.7 mmol/ L 3-11 high Not Available [address] [place], [address] 03/24/2024 16:05:07 03/24/20 24 03/24/2024 COMPR EHENS KIRAN METAB OLIC PANEL AST 13 U/L 15-37 low Not Available Debra floyd [address] [place], [address] 03/24/2024 16:05:07 03/24/20 24 03/24/2024 COMPR EHENS KIRAN METAB OLIC PANEL ALT 23 U/L 16-63 normal Not Available Debra floyd [address] [place], [address] 03/24/2024 16:05:07 03/24/20 24 03/24/2024 TSH (W/RE F FT4) TSH (w/ref FT4) 1.10 uIU/m L 0.36-3 .74 normal Not Available [address] [place], [address] 03/24/2024 16:05:07 03/24/20 24 03/24/2024 LIPAS E lipase 56 U/L 16-77 normal Not Available Debra floyd [address] [place], [address] 03/24/2024 16:05:08 03/24/20 24 03/24/2024 TROPO ALLA I troponin I < 50 NG/L < or =60 Not Available [address] [place], [address] 03/24/2024 16:05:08 03/24/20 24 03/24/2024 NT-ME OBNP nt-probnp 20 pg/mL <300 NT-pr oBNP value s <300 pg/mL have a 98% negat kiran predi ctive value for exclu ding acute conge stive heart failu re(CH F). NOTE: Supra -phys iolog ic doses of Bioti n(B7) may cause false negat kiran resul ts. Not Available [facility] (Registration ) [address] [place] [address] [place], [address], 03/24/2024 16:05:09 03/24/20 24 03/24/2024 PROTH ROMBI N TIME prothrombin time 11.6 sec 9.1-11 .1 high Not Available [address] [place], [address] 03/24/2024 16:47:19 03/24/20 24 03/24/2024 PROTH ROMBI N TIME INR 1.2 0.9-1. 1 high Recom som d INR thera peuti c range s for orall y admin ister ed drugs are as follo ws: -Lev dard Inten sity 2.0 to 3.0 -High er Inten sity 3.0 to 4.5 Not Available [address] [place], [address] 03/24/2024 16:47:19 03/24/20 24 03/24/2024 PTT ACTIV ATED PTT activated 30.7 sec 23.6-3 2.8 normal Hepar in Thera peuti c Range for PTT = 52-84 secon ds New Hepar in Thera peuti c Range 10/21 Not Available [address] [place], [address] 03/24/2024 16:47:19 03/24/20 24 03/24/2024 COVID /FLU/ RSV PCR source NASOPH ARYNX Not Available [address] [facility] [place], [address] 03/24/2024 17:31:27 03/24/20 24 03/24/2024 COVID /FLU/ RSV PCR covid-19 PCR Negati ve negati ve This test has not been FDA clear ed or appro mony. This test has been autho rized by the FDA under an Emerg ency Use Autho rizat ion for use by autho rized labor atori es. This test has been autho rized only for detec tion of nucle ic acid from the 2019 novel coron a virus (2019 -nCoV ), influ wen A, influ wen B, and respi rator y syncy tial virus (RSV) , and not for the detec tion of any other virus es or patho gens. This test is only autho rized for the durat ion of the decla ratio n that circu mstan amy exist justi fying the autho rizat ion of emerg ency use of in vitro diagn ostic tests for detec tion and/o r diagn osis of 2019- nCoV under secti on 564(b )(1) of Act, 21 U.S.C ??? 360bb b-3(b )(1), unles s the autho rizat ion is termi nated or revok ed soone r. Negat kiran resul ts do not precl ude 2019- nCoV, influ wen, and/o r RSV infec tion and shoul d not be used as the sole basis for treat ment or other patie nt manag ement decis ions. Negat kiran resul ts must be combi janice with clini johnie obser vatio ns, patie nt histo ry, and epide miolo gical infor nikolas nMarybeth Testi ng perfo rmed at [facility] (CLIA #[id number]) on the Cephe id GeneX pert. Not Available [address] [facility] [place], [address] 03/24/2024 17:31:27 03/24/20 24 03/24/2024 COVID /FLU/ RSV PCR influenza A PCR Negati ve negati ve Not Available [address] [place], [address] 03/24/2024 17:31:27 03/24/20 24 03/24/2024 COVID /FLU/ RSV PCR influenza B PCR Negati ve negati ve Not Available [address] [place], [address] 03/24/2024 17:31:27 03/24/20 24 03/24/2024 COVID /FLU/ RSV PCR RSV PCR Negati ve negati ve Not Available [address] [place], [address] 03/24/2024 17:31:27 03/24/20 24 03/24/2024 COMPR EHENS KIRNA METAB OLIC PANEL calcium 9.2 mg/dL 8.5-10 .1 normal Not Available [address] [place], [address] 03/24/2024 18:05:32 03/24/20 24 03/24/2024 COMPR EHENS KIRAN METAB OLIC PANEL glucose 183 mg/dL 74-106 high Not Available Debra floyd [address] [place], [address] 03/24/2024 18:05:32 03/24/20 24 03/24/2024 COMPR EHENS KIRAN METAB OLIC PANEL BUN 12 mg/dL 7-18 normal Not Available Debra floyd [address] [place], [address] 03/24/2024 18:05:32 03/24/20 24 03/24/2024 COMPR EHENS KIRAN METAB OLIC PANEL creatinine 1.5 mg/dL 0.70-1 .30 high Not Available [address] [place], [address] 03/24/2024 18:05:32 03/24/20 24 03/24/2024 COMPR EHENS KIRAN METAB OLIC PANEL estimated GFR 56.72 mL/min /1.73m 2 The eGFR is calcu lated from a serum creat inine using the CKD-E PI 2020 equat ion. Other varia bles requi red for the equat ion are gende r and age; this equat ion does not inclu de a race coeff icien t. This equat ion has simil ar overa ll perfo rmanc e to previ ous equat ions excep t value s may diffe r, in parti cular , in patie nts with highe r value s of eGFR and young er-ag ed adult s. Not Available [address] [place], [address] 03/24/2024 18:05:32 03/24/20 24 03/24/2024 COMPR EHENS KIRAN METAB OLIC PANEL total protein 7.5 g/dL 6.4-8. 2 normal Not Available [address] [place], [address] 03/24/2024 18:05:32 03/24/20 24 03/24/2024 COMPR EHENS KIRAN METAB OLIC PANEL albumin 3.2 g/dL 3.4-5. 0 low Not Available [address] [place], [address] 03/24/2024 18:05:32 03/24/20 24 03/24/2024 COMPR EHENS KIRAN METAB OLIC PANEL bilirubin, total 0.49 mg/dL 0.2-1. 0 normal Not Available [address] [place], [address] 03/24/2024 18:05:32 03/24/20 24 03/24/2024 COMPR EHENS KIRAN METAB OLIC PANEL alk phos 102 U/L 46-116 normal Not Available [address] [place], [address] 03/24/2024 18:05:32 03/24/20 24 03/24/2024 COMPR EHENS KIRAN METAB OLIC PANEL sodium 139 mmol/ L 136-14 5 normal Not Available [address] [place], [address] 03/24/2024 18:05:32 03/24/20 24 03/24/2024 COMPR EHENS KIRAN METAB OLIC PANEL potassium 3.7 mmol/ L 3.5-5. 1 normal Not Available [address] [place], [address] 03/24/2024 18:05:32 03/24/20 24 03/24/2024 COMPR EHENS KIRAN METAB OLIC PANEL chloride 99 mmol/ L 98-107 normal Not Available [address] [place], [address] 03/24/2024 18:05:32 03/24/20 24 03/24/2024 COMPR EHENS KIRAN METAB OLIC PANEL CO2 15.1 mmol/ L 21.0-3 2.0 low Not Available [address] [place], [address] 03/24/2024 18:05:32 03/24/20 24 03/24/2024 COMPR EHENS KIRAN METAB OLIC PANEL anion gap 24.9 mmol/ L 3-11 high Not Available [address] [place], [address] 03/24/2024 18:05:32 03/24/20 24 03/24/2024 COMPR EHENS KIRAN METAB OLIC PANEL AST 13 U/L 15-37 low Not Available Debra floyd [address] [place], [address] 03/24/2024 18:05:32 03/24/20 24 03/24/2024 COMPR EHENS KIRAN METAB OLIC PANEL ALT 24 U/L 16-63 normal Not Available Debra floyd [address] [place], [address] 03/24/2024 18:05:32 03/24/20 24 03/24/2024 MAGNE SIUM magnesium 2.1 mg/dL 1.8-2. 4 normal Not Available [facility] (Registration ) [address] [place] [address] [place], [address], 03/24/2024 18:05:33 03/24/20 24 03/24/2024 URINA LYSIS color Yellow yellow Not Available Debra floyd [address] [place], [address] 03/24/2024 18:24:33 03/24/20 24 03/24/2024 URINA LYSIS clarity Clear clear Not Available Debra floyd [address] [place], [address] 03/24/2024 18:24:33 03/24/20 24 03/24/2024 URINA LYSIS specific gravity >= 1.030 1.005- 1.025 high Not Available [address] [place], [address] 03/24/2024 18:24:33 03/24/20 24 03/24/2024 URINA LYSIS pH 5.5 5-8 normal Not Available Debra floyd [address] [place], [address] 03/24/2024 18:24:33 03/24/20 24 03/24/2024 URINA LYSIS leukocyte esterase Negati ve negati ve Not Available [address] [place], [address] 03/24/2024 18:24:33 03/24/20 24 03/24/2024 URINA LYSIS nitrite Negati ve negati ve Not Available [address] [place], [address] 03/24/2024 18:24:33 03/24/20 24 03/24/2024 URINA LYSIS protein 100 mg/dL neg-tr elida abnormal Not Available [address] [place], [address] 03/24/2024 18:24:33 03/24/20 24 03/24/2024 URINA LYSIS glucose 500 mg/dL negati ve abnormal Not Available [address] [place], [address] 03/24/2024 18:24:33 03/24/20 24 03/24/2024 URINA LYSIS ketones >=160 mg/dL negati ve abnormal Not Available [address] [place], [address] 03/24/2024 18:24:33 03/24/20 24 03/24/2024 URINA LYSIS urobilinogen 0.2 mg/dL up to 0.2 Not Available [address] [place], [address] 03/24/2024 18:24:33 03/24/20 24 03/24/2024 URINA LYSIS bilirubin Small negati ve abnormal Not Available [address] [place], [address] 03/24/2024 18:24:33 03/24/20 24 03/24/2024 URINA LYSIS blood Negati ve negati ve Not Available [address] [place], [address] 03/24/2024 18:24:33 03/24/20 24 03/24/2024 URINA LYSIS color Yellow yellow Not Available Debra floyd [address] [place], [address] 03/24/2024 18:34:33 03/24/20 24 03/24/2024 URINA LYSIS clarity Clear clear Not Available Debra floyd [address] [place], [address] 03/24/2024 18:34:33 03/24/20 24 03/24/2024 URINA LYSIS specific gravity >= 1.030 1.005- 1.025 high Not Available [address] [place], [address] 03/24/2024 18:34:33 03/24/20 24 03/24/2024 URINA LYSIS pH 5.5 5-8 normal Not Available Debra floyd [address] [place], [address] 03/24/2024 18:34:33 03/24/20 24 03/24/2024 URINA LYSIS leukocyte esterase Negati ve negati ve Not Available [address] [place], [address] 03/24/2024 18:34:33 03/24/20 24 03/24/2024 URINA LYSIS nitrite Negati ve negati ve Not Available [address] [place], [address] 03/24/2024 18:34:33 03/24/20 24 03/24/2024 URINA LYSIS protein 100 mg/dL neg-tr elida abnormal Not Available [address] [place], [address] 03/24/2024 18:34:33 03/24/20 24 03/24/2024 URINA LYSIS glucose 500 mg/dL negati ve abnormal Not Available [address] [place], [address] 03/24/2024 18:34:33 03/24/20 24 03/24/2024 URINA LYSIS ketones >=160 mg/dL negati ve abnormal Not Available [address] [place], [address] 03/24/2024 18:34:33 03/24/20 24 03/24/2024 URINA LYSIS urobilinogen 0.2 mg/dL up to 0.2 Not Available [address] [place], [address] 03/24/2024 18:34:33 03/24/20 24 03/24/2024 URINA LYSIS bilirubin Small negati ve abnormal Not Available [address] [place], [address] 03/24/2024 18:34:33 03/24/20 24 03/24/2024 URINA LYSIS blood Negati ve negati ve Not Available [address] [place], [address] 03/24/2024 18:34:33 03/24/20 24 03/24/2024 MICRO SCOPI C FINDI NGS WBC Negati ve hpf 0-5 Not Available [address] [place], [address] 03/24/2024 18:34:33 03/24/20 24 03/24/2024 MICRO SCOPI C FINDI NGS RBC Negati ve hpf 0-2 Not Available [address] [place], [address] 03/24/2024 18:34:33 03/24/20 24 03/24/2024 MICRO SCOPI C FINDI NGS epithelial cells Rare hpf negati ve Not Available [address] [place], [address] 03/24/2024 18:34:33 03/24/20 24 03/24/2024 MICRO SCOPI C FINDI NGS bacteria Negati ve hpf negati ve Not Available [address] [place], [address] 03/24/2024 18:34:33 03/24/20 24 03/24/2024 MICRO SCOPI C FINDI NGS crystals Negati ve hpf negati ve Not Available [address] [place], [address] 03/24/2024 18:34:33 03/24/20 24 03/24/2024 MICRO SCOPI C FINDI NGS mucus Negati ve negati ve Not Available [address] [place], [address] 03/24/2024 18:34:33 03/24/20 24 03/24/2024 MICRO SCOPI C FINDI NGS casts 3-5 Hyalin e lpf negati ve 0-2 FINE GRANU LAR Not Available [address] [place], [address] 03/24/2024 18:34:33 03/24/20 24 03/24/2024 MICRO SCOPI C FINDI NGS C S indicated? No Not Available [address] [place], [address] 03/24/2024 18:34:33 03/24/20 24 03/24/2024 TROPO ALLA I troponin I < 50 NG/L < or =60 Not Available [address] [place], [address] 03/24/2024 18:53:36 03/24/20 24 03/24/2024 VENOU S BLOOD GAS pH (venous) 7.22 7.31-7 .41 low Not Available [address] [place], [address] 03/24/2024 19:46:50 03/24/20 24 03/24/2024 VENOU S BLOOD GAS pCO2 (venous) 29 mmHg 41-51 low Not Available [address] [place], [address] 03/24/2024 19:46:50 03/24/20 24 03/24/2024 VENOU S BLOOD GAS pO2 (venous) 51 mmHg Not Available [address] [place], [address] 03/24/2024 19:46:50 03/24/20 24 03/24/2024 VENOU S BLOOD GAS TCO2 (venous) 11 mmol/ L 24-29 low Not Available [address] [place], [address] 03/24/2024 19:46:50 03/24/20 24 03/24/2024 VENOU S BLOOD GAS HCO3 (venous) 12 mmol/ L 23-28 low Not Available [address] [place], [address] 03/24/2024 19:46:50 03/24/20 24 03/24/2024 VENOU S BLOOD GAS BE (venous) -16 mmol/ L -2-3 low Not Available [address] [place], [address] 03/24/2024 19:46:50 03/24/20 24 03/24/2024 VENOU S BLOOD GAS O2 sat (venous) 83 % Not Available Paras nugent [address] [place], [address] 03/24/2024 19:46:50 03/24/20 24 03/24/2024 BASIC METAB OLIC PANEL calcium 8.0 mg/dL 8.5-10 .1 low Not Available [address] [place], [address] 03/24/2024 19:57:52 03/24/20 24 03/24/2024 BASIC METAB OLIC PANEL glucose 166 mg/dL 74-106 high Not Available Debra floyd [address] [place], [address] 03/24/2024 19:57:52 03/24/20 24 03/24/2024 BASIC METAB OLIC PANEL BUN 11 mg/dL 7-18 normal Not Available Debra floyd [address] [place], [address] 03/24/2024 19:57:52 03/24/20 24 03/24/2024 BASIC METAB OLIC PANEL creatinine 1.3 mg/dL 0.70-1 .30 normal Not Available [address] [place], [address] 03/24/2024 19:57:52 03/24/20 24 03/24/2024 BASIC METAB OLIC PANEL estimated GFR 67.34 mL/min /1.73m 2 The eGFR is calcu lated from a serum creat in using the CKD-E PI 2020 equat ion. Other varia bles requi red for the equat ion are gende r and age; this equat ion does not inclu de a race coeff icien t. This equat ion has simil ar overa ll perfo rmanc e to previ ous equat ions excep t value s may diffe r, in parti cular , in patie nts with highe r value s of eGFR and young er-ag ed adult s. Not Available [address] [place], [address] 03/24/2024 19:57:52 03/24/20 24 03/24/2024 BASIC METAB OLIC PANEL sodium 138 mmol/ L 136-14 5 normal Not Available [address] [place], [address] 03/24/2024 19:57:52 03/24/20 24 03/24/2024 BASIC METAB OLIC PANEL potassium 3.9 mmol/ L 3.5-5. 1 normal Not Available [address] [place], [address] 03/24/2024 19:57:52 03/24/20 24 03/24/2024 BASIC METAB OLIC PANEL chloride 105 mmol/ L 98-107 normal Not Available [address] [place], [address] 03/24/2024 19:57:52 03/24/20 24 03/24/2024 BASIC METAB OLIC PANEL CO2 13.9 mmol/ L 21.0-3 2.0 low Not Available [address] [place], [address] 03/24/2024 19:57:52 03/24/20 24 03/24/2024 BASIC METAB OLIC PANEL anion gap 19.1 mmol/ L 3-11 high Not Available [address] [place], [address] 03/24/2024 19:57:52 03/24/20 24 03/25/2024 BLOOD CULTU RE ( AGE => 9 YRS) blood culture ( age => 9 yrs) Blood Cultu re ( Age => 9 Yrs) NO GROWT H 24 HOURS Not Available [address] [place], [address] 03/25/2024 17:49:36 03/24/20 24 03/25/2024 BLOOD CULTU RE ( AGE => 9 YRS) blood culture ( age => 9 yrs) Blood Cultu re ( Age => 9 Yrs) NO GROWT H 24 HOURS Not Available [address] [place], [address] 03/25/2024 19:11:42 03/24/20 24 03/26/2024 BLOOD CULTU RE ( AGE => 9 YRS) blood culture ( age => 9 yrs) Blood Cultu re ( Age => 9 Yrs) NO GROWT H 48 HOURS Not Available [address] [place], [address] 03/26/2024 17:51:46 03/24/20 24 03/26/2024 BLOOD CULTU RE ( AGE => 9 YRS) blood culture ( age => 9 yrs) Blood Cultu re ( Age => 9 Yrs) NO GROWT H 48 HOURS Not Available [address] [place], [address] 03/26/2024 19:11:56 03/24/20 24 03/27/2024 BLOOD CULTU RE ( AGE => 9 YRS) blood culture ( age => 9 yrs) Blood Cultu re ( Age => 9 Yrs) NO GROWT H 72 HOURS Not Available [address] [place], [address] 03/27/2024 17:53:04 03/24/2003/27/2024 BLOOD CULTU RE ( AGE => 9 YRS) blood culture ( age => 9 yrs) Blood Cultu re ( Age => 9 Yrs) NO GROWT H 72 HOURS Not Available [address] [place], [address] 03/27/2024 19:12:05 03/24/20 24 03/28/2024 BLOOD CULTU RE ( AGE => 9 YRS) blood culture ( age => 9 yrs) Blood Cultu re ( Age => 9 Yrs) NO GROWT H 96 HOURS Not Available [address] [place], [address] 03/28/2024 17:52:07 03/24/20 24 03/28/2024 BLOOD CULTU RE ( AGE => 9 YRS) blood culture ( age => 9 yrs) Blood Cultu re ( Age => 9 Yrs) NO GROWT H 96 HOURS Not Available [address] [place], [address] 03/28/2024 19:12:13 03/24/20 24 03/29/2024 BLOOD CULTU RE ( AGE => 9 YRS) blood culture ( age => 9 yrs) Blood Cultu re ( Age => 9 Yrs) NO GROWT H 120 HOURS Not Available [address] [place], [address] 03/29/2024 17:52:01 03/24/20 24 03/29/2024 BLOOD CULTU RE ( AGE => 9 YRS) blood culture ( age => 9 yrs) Blood Cultu re ( Age => 9 Yrs) NO GROWT H 120 HOURS Not Available [address] [place], [address] 03/29/2024 19:10:16 03/24/20 24 03/24/2024 hemog lobin (Hb), finge rstic k, blood HGB 15 g/dL Not Available [address], [address], 03/24/2024 13:20:25 03/24/20 24 03/24/2024 hemog lobin (Hb), finge rstic k, blood HGB 15 g/dL Not Available [address], [address], 03/24/2024 12:40:22 04/23/20 24 04/23/2024 hemog lobin A1C, finge rstic k hemoglobin A1C 8.0 % <5.7 Not Available [address], [address], 04/23/2024 11:48:33 05/07/20 24 05/07/2024 COMPL ETE BLOOD COUNT W/DIF F WBC 7.39 10_3/ uL 4.4-10 .8 normal Not Available [address] [place], [address] 05/07/2024 09:55:15 05/07/20 24 05/07/2024 COMPL ETE BLOOD COUNT W/DIF F RBC 5.34 10_6/ uL 4.36-5 .78 normal Not Available [address] [place], [address] 05/07/2024 09:55:15 05/07/20 24 05/07/2024 COMPL ETE BLOOD COUNT W/DIF F HGB 12.8 g/dL 13.5-1 7.5 low Not Available [address] [place], [address] 05/07/2024 09:55:15 05/07/20 24 05/07/2024 COMPL ETE BLOOD COUNT W/DIF F HCT 41.3 % 40.0-5 0.0 normal Not Available [address] [place], [address] 05/07/2024 09:55:15 05/07/20 24 05/07/2024 COMPL ETE BLOOD COUNT W/DIF F MCV 77 fL 80-95 low Not Available [address] [place], [address] 05/07/2024 09:55:15 05/07/20 24 05/07/2024 COMPL ETE BLOOD COUNT W/DIF F MCH 24.0 pg 27.0-3 3.0 low Not Available [address] [place], [address] 05/07/2024 09:55:15 05/07/20 24 05/07/2024 COMPL ETE BLOOD COUNT W/DIF F MCHC 31.0 % 32.0-3 6.0 low Not Available [address] [place], [address] 05/07/2024 09:55:15 05/07/20 24 05/07/2024 COMPL ETE BLOOD COUNT W/DIF F RDW 16.8 % 11.8-1 4.1 high Not Available [address] [place], [address] 05/07/2024 09:55:15 05/07/20 24 05/07/2024 COMPL ETE BLOOD COUNT W/DIF F platelet count 192 10_3/ uL 130-40 0 normal Not Available [address] [place], [address] 05/07/2024 09:55:15 05/07/20 24 05/07/2024 COMPL ETE BLOOD COUNT W/DIF F MPV 10.7 fL 8.0-11 .0 normal Not Available [address] [place], [address] 05/07/2024 09:55:15 05/07/20 24 05/07/2024 COMPL ETE BLOOD COUNT W/DIF F neutrophils % 72.2 % Not Available [address] [place], [address] 05/07/2024 09:55:15 05/07/20 24 05/07/2024 COMPL ETE BLOOD COUNT W/DIF F lymphocytes % 18.8 % Not Available [address] [place], [address] 05/07/2024 09:55:15 05/07/20 24 05/07/2024 COMPL ETE BLOOD COUNT W/DIF F monocytes % 4.1 % Not Available [address] [place], [address] 05/07/2024 09:55:15 05/07/20 24 05/07/2024 COMPL ETE BLOOD COUNT W/DIF F eosinophils % 3.9 % Not Available [address] [place], [address] 05/07/2024 09:55:15 05/07/20 24 05/07/2024 COMPL ETE BLOOD COUNT W/DIF F basophils % 0.7 % Not Available [address] [place], [address] 05/07/2024 09:55:15 05/07/20 24 05/07/2024 COMPL ETE BLOOD COUNT W/DIF F immature grans % 0.3 % Not Available [address] [place], [address] 05/07/2024 09:55:15 05/07/20 24 05/07/2024 COMPL ETE BLOOD COUNT W/DIF F nucleated RBC 0.0 % 0.0-0. 3 normal Not Available [address] [place], [address] 05/07/2024 09:55:15 05/07/20 24 05/07/2024 COMPL ETE BLOOD COUNT W/DIF F absolute neutrophil count 5.34 10_3/ uL 1.2-6. 7 normal Not Available [address] [place], [address] 05/07/2024 09:55:15 05/07/20 24 05/07/2024 COMPL ETE BLOOD COUNT W/DIF F absolute lymphocyte count 1.39 10_3/ uL 1.2-3. 4 normal Not Available [address] [place], [address] 05/07/2024 09:55:15 05/07/20 24 05/07/2024 COMPL ETE BLOOD COUNT W/DIF F absolute monocyte count 0.30 10_3/ uL 0.1-0. 8 normal Not Available [address] [place], [address] 05/07/2024 09:55:15 05/07/20 24 05/07/2024 COMPL ETE BLOOD COUNT W/DIF F absolute eosinophil count 0.29 10_3/ uL 0.0-0. 7 normal Not Available [address] [place], [address] 05/07/2024 09:55:15 05/07/20 24 05/07/2024 COMPL ETE BLOOD COUNT W/DIF F absolute basophil count 0.05 10_3/ uL 0.0-0. 2 normal Not Available [address] [place], [address] 05/07/2024 09:55:15 05/07/20 24 05/07/2024 COMPR EHENS KIRAN METAB OLIC PANEL calcium 8.8 mg/dL 8.5-10 .1 normal Not Available [address] [place], [address] 05/07/2024 10:13:24 05/07/20 24 05/07/2024 COMPR EHENS KIRAN METAB OLIC PANEL glucose 258 mg/dL 74-106 high Not Available Debra floyd [address] [place], [address] 05/07/2024 10:13:24 05/07/20 24 05/07/2024 COMPR EHENS KIRAN METAB OLIC PANEL BUN 6 mg/dL 7-18 low Not Available Debra floyd [address] [place], [address] 05/07/2024 10:13:24 05/07/20 24 05/07/2024 COMPR EHENS KIRAN METAB OLIC PANEL creatinine 0.9 mg/dL 0.70-1 .30 normal Not Available [address] [place], [address] 05/07/2024 10:13:24 05/07/20 24 05/07/2024 COMPR EHENS KIRAN METAB OLIC PANEL estimated GFR 104.70 mL/min /1.73m 2 The eGFR is calcu lated from a serum creat inine using the CKD-E PI 2020 equat ion. Other varia bles requi red for the equat ion are gende r and age; this equat ion does not inclu de a race coeff icien t. This equat ion has simil ar overa ll perfo rmanc e to previ ous equat ions excep t value s may diffe r, in parti cular , in patie nts with highe r value s of eGFR and young er-ag ed adult s. Not Available [address] [place], [address] 05/07/2024 10:13:24 05/07/20 24 05/07/2024 COMPR EHENS KIRAN METAB OLIC PANEL total protein 6.6 g/dL 6.4-8. 2 normal Not Available [address] [place], [address] 05/07/2024 10:13:24 05/07/20 24 05/07/2024 COMPR EHENS KIRAN METAB OLIC PANEL albumin 2.8 g/dL 3.4-5. 0 low Not Available [address] [place], [address] 05/07/2024 10:13:24 05/07/20 24 05/07/2024 COMPR EHENS KIRAN METAB OLIC PANEL bilirubin, total 0.31 mg/dL 0.2-1. 0 normal Not Available [address] [place], [address] 05/07/2024 10:13:24 05/07/20 24 05/07/2024 COMPR EHENS KIRAN METAB OLIC PANEL alk phos 77 U/L 46-116 normal Not Available [address] [place], [address] 05/07/2024 10:13:24 05/07/20 24 05/07/2024 COMPR EHENS KIRAN METAB OLIC PANEL sodium 137 mmol/ L 136-14 5 normal Not Available [address] [place], [address] 05/07/2024 10:13:24 05/07/20 24 05/07/2024 COMPR EHENS KIRAN METAB OLIC PANEL potassium 4.1 mmol/ L 3.5-5. 1 normal Not Available [address] [place], [address] 05/07/2024 10:13:24 05/07/20 24 05/07/2024 COMPR EHENS KIRAN METAB OLIC PANEL chloride 101 mmol/ L 98-107 normal Not Available [address] [place], [address] 05/07/2024 10:13:24 05/07/20 24 05/07/2024 COMPR EHENS KIRAN METAB OLIC PANEL CO2 29.6 mmol/ L 21.0-3 2.0 normal Not Available [address] [place], [address] 05/07/2024 10:13:24 05/07/20 24 05/07/2024 COMPR EHENS KIRAN METAB OLIC PANEL anion gap 6.4 mmol/ L 3-11 normal Not Available [address] [place], [address] 05/07/2024 10:13:24 05/07/20 24 05/07/2024 COMPR EHENS KIRAN METAB OLIC PANEL AST 18 U/L 15-37 normal Not Available Debra [address] [place], [address] 05/07/2024 10:13:24 05/07/20 24 05/07/2024 COMPR EHENS KIRAN METAB OLIC PANEL ALT 19 U/L 16-63 normal Not Available Debra floyd [facility] [address] [place], [address] 05/07/2024 10:13:24 01/26/20 24 01/26/2024 MRI imagi ng repor t Patien t Name: Charles Nick Unit #: [id number] Loc: DI Orderi ng Provid er: Wolfgangindrakasie perezAustin cutler M DO Accoun t #: [id number] Status : REG CLI Primar y Care Provid er: Jaye Chamberlain rymoon Date of Exam: Sex: M Admiss ion Date: : 1975 Age: 48 Exam(s ) MR ABDOME N WO/W EXAM: MR ABDOME N WO/W CLINIC AL HISTOR Y: Adenoc arcino ma of the duoden um,chr onic kidney diseas e,c17. 0 TECHNI QUE: Multip lanar multis equenc e MRI of the Abdome n was perfor med. CONTRA ST MATERI AL: IV Contra st: 20 mL of Dotare m contra st admini stered . COMPAR VALERIE: CT CT CHEST PE ABD PELVIS W from [address] ABDOME N PELVIS W from 2022 MR MR PELVIS WO/W from 2023 FINDIN GS: Liver: No eviden ce of a hepati c mass. Pancre as: There is a tiny 4 mm cyst in the body of the pancre as. No solid pancre atic masses are seen. No peripa ncreat ic fluid collec tions are presen t. The pancre atic duct is within normal limits . Gallbl adder and Bile Ducts: The gallbl adder is absent . There is no intrah epatic biliar y ductal dilata tion. The common duct measur es 1 cm. This is likely second jonny to the post cholec ystect valeriy state. Adrena ls: There is no eviden ce of an adrena l mass. Kidney s: The kidney s show normal size and signal . No eviden ce of renal mass or obstru ction is seen. Spleen : Unrema rkable . Bowel: There is again seen a 2 cm mass in the descen ding duoden um. (Serie s 5001, image 23). There is a 5 mm nodule on the boulevard glassware replacer ior wall of a loop of small bowel in the centra l abdome n (serie s 5001, image 28). Severa l loops of small bowel are not disten ded or opacif ied well enough for evalua tion. No eviden ce of bowel obstru ction. Aorta: Unrema rkable . Soft Tissue s: Unrema rkable . No abdomi nal ascite s. Bone: No findin gs to sugges t osseou s metast atic diseas e. Lymph Nodes: No abdomi nal adenop athy. IMPRES [place]: 1. 2 cm mass seen in the descen ding duoden um. This appear s to repres ent the patien t's known duoden al adenoc arcino ma. 2. 5 mm nodule along the boulevard glassware replacer ior wall of a loop of small bowel in the centra l abdome n. This may simply be enteri c conten ts versus mass. 3. No eviden ce of abdomi nal metast atic diseas e. DATA REPOSI TORY: Ordere d By: Austin Torres DO CC: ------ ------ ------ ------ ------ ------ ------ ------ ------ ------ ------ ------ - Dictat ed By: Juan Delacruz M.D. 1507 1507 Transc ribed By: Juan Delacruz 1507 This is privil eged, confid ential inform ation intend ed only for the provid er named. Any use or distri bution by any person other than this provid er is strict ly prohib ited. If you receiv e this report in error, please notify us immedi ately at and return the origin al report to us at the addres s above. Thank- you. [facility] [address] [facility] [place], [address] 01/26/2024 15:35:36 01/26/20 24 01/26/2024 MRI imagi ng repor t Patien t Name: Charles Nick Unit #: [id number] Loc: DI Orderi ng Provid er: Austin Torres DO Accoun t #: [id number] Status : REG CLI Primar y Care Provid er: Jaye Chamberlain Date of Exam: Sex: M Admiss ion Date: : 1975 Age: 48 Exam(s ) MR PELVIS WO/W EXAM: MR PELVIS WO/W CLINIC AL HISTOR Y: Adenoc arcino ma of the duoden um,chr onic kidney diseas e,c17. 0,n18. 9 TECHNI QUE: Multip lanar multis equenc e MRI of the Abdome n was perfor med. CONTRA ST MATERI AL: IV Contra st: mL of Dotare m contra st admini stered . COMPAR VALERIE: No exams were availa ble for compar valerie FINDIN GS: The examin ation is limite d due to patien t motion artifa ct. Bowel: Visual ized bowel in the pelvis shows no eviden ce of obstru ction. No bowel wall thicke maya is seen. There is no eviden ce of an acute append icitis . There is a questi on of a polyp in the proxim al sigmoi d colon measur ing 1.5 cm in length . (Serdon brown [address], image 19). Urinar y bladde r: Unrema rkable . Perito neum: No ascite s. Aorta: The aorta and its visual ized runoff are unrema rkable . Soft Tissue s: Unrema rkable . Bone: Unrema rkable . Lymph Nodes: Unrema rkable . Enhanc ement: Unrema rkable . IMPRES [place]: 1. Questi on or proxim al sigmoi d colon polyp. Colono scopy is recomm ended for furthe r evalua tion. 2. No eviden ce of pelvic metast atic diseas e. DATA REPOSI TORY: Ordere d By: Austin Torres DO CC: ------ ------ ------ ------ ------ ------ ------ ------ ------ ------ ------ ------ - Dictat ed By: Juan Delacruz M.D. 1607 160 Transc ribed By: Juan Delacruz 160 This is privil eged, confid ential inform ation intend ed only for the provid er named. Any use or distri bution by any person other than this provid er is strict ly prohib ited. If you receiv e this report in error, please notify us immedi navinly at [phone] and return the origin al report to us at the addres s above. Thank- you. [facility] [address], [place], [address] 02/02/2024 18:04:55 02/02/20 24 01/27/2024 PET, skull base to mid-t high No observ ation record ed. ОЛЬГА Not Available 2023 15:50:24 02/26/20 24 02/26/2024 CT imagi ng barrett holland Name: Charles Nick Unit #: [id number] Loc: DI Orderi ng Provid er: Quang Hernandez Accifeanyi t #: [id number] Status : REG CLI Primar y Care Provid er: Jaye Chamberlain Date of Exam: Sex: M : 1975 Age: 48 Exam(s ) a CT:CT abdome n pelvis w Exam(s ) CT ABDOME N PELVIS W EXAM: CT ABDOME N PELVIS W CLINIC AL HISTOR Y: DUODEN AL CANCER C17.0 SURGIC AL PLANNI NG TECHNI QUE: Imagin g Protoc ol: Axial comput ed tomogr aphy images with valenzuela l and sagvito al reform atted images were create d and review ed. CONTRA ST MATERI AL: Intrav enous: Omnipa que [address] volume :100 mL Oral: Yes COMPAR VALERIE: CT CT CHEST PE ABD PELVIS W from [address] ABDOME N PELVIS W from 2022 MR MR ABDOME N WO/W from 2023 FINDIN GS: ABDOME N: Lung Bases: Normal where visual ized. Liver: There is decrea sed attenu ation of the liver sugges ting fatty infilt ration . No measur able mass. Portal , Superi or Mesent niurka, and Spleni c Veins: Unrema rkable . Gallbl adder and Biliar y Tract: Status post cholec ystect valeriy. No signif icant biliar y ductal dilata tion. Pancre as: Normal densit y, no abnorm al calcif icatio ns or inflam matory proces s. Spleen : Normal . Adrena ls: No masses seen. Kidney s: Normal size, contou r and axis. No radiod ense stones or obstru ctive uropat hy. No masses seen. Abdomi nal Aorta: Abdomi nal portio n non-di lated. Bowel: Known mass in the descen ding duoden um is not well visual ized on the curren t examin ation second jonny to poor disten lake of the bowel at this region . The bowel is otherw ise unrema rkable withou t eviden ce of obstru ction or bowel wall thicke maya. No eviden ce of append icitis . Perito yimi Cavity : No ascite s, collec tion or mesent niurka inflam matory respon se. No free air. Lymph Nodes: Within normal limits . Bones: Within normal limits for the patien t's age. Soft Tissue s: Unrema rkable . PELVIS : Bladde r: Symmet shobha disten tion, no gross wall thicke maya. Reprod uctive Organs : Unrema rkable as visual ized. Lymph Nodes: There is an enlarg ed 2.5 x 1.4 cm right inguin al lymph node. Bones: Within normal limits for the patien t's age. IMPRES [place]: 1. The patien t's known mass in the duoden um was not visual ized on the curren t examin ation due to incomp lete disten lake of the bowel at this region . The bowel is otherw ise unrema rkable . 2. Enlarg ed 2.5 x 1.4 cm right inguin al lymph node. 3. Findin gs sugges tive fatty infilt ration of the liver. RADIAT ION DOSE DELIVE RED: Total DLP DATA REPOSI TORY: All CT scans at this facili ty are submit dotty to the Nation al Radiol ogy Data Regist ry (NRDR) Dose Index Regist ry (DIR) with the [place] meg [employer] of Radiol ogy (ACR). RADIAT ION OPTIMI ZATION : All CT scans at this facili ty use at least one of these dose optimi zation techni ques: automa dotty exposu re contro l; mA and/or kV adjust ment per patien t size (inclu shaw target ed exams where dose is matche d to clinic al indica tion); or iterat kiran recons tructi on. 002: Total DLP = 0.00 mGy-cm Ordere d By: Quang Hernandez CC: [facility] ------ ------ ------ ------ ------ ------ ------ ------ ------ ------ ------ ------ ---- Dictat ed By: Juan Delacruz M.D. 1107 1106 Transc ribed By: Juan Delacruz 1106 This is privil eged, confid ential inform ation intend ed only for the provid er named. Any use or distri bution by any person other than this provid er is strict ly prohib ited. If you receiv e this report in error, please notify us immedi ately at and return the origin al report to us at the addres s above. Thank- you. [address] [place], [address] 02/26/2024 13:16:53 03/24/20 24 03/24/2024 CT imagi ng repor t Patien t Name: Charles Nick Unit #: [id number] Loc: ER Orderi ng Provid er: Rayo Ramos M.D. Accoun t #: [id number] Status : REG ER Primar y Care Provid er: Jaye Chamberlain Date of Exam: 07/08 Sex: M : 1975 Age: 48 Exam(s ) a CT:CT chest PE abd pelvis w Exam(s ) CT CHEST PE ABD PELVIS W EXAM: CT CHEST PE ABD PELVIS W CLINIC AL HISTOR Y: postop 3wk whippl e duod ca, hypo tachy, vomiti ng. TECHNI QUE: Imagin g Protoc ol: Axial CT angiog lorena was perfor med with multi- slice acquis ition and multi- planar and/or 3D recons tructi ons. CONTRA ST MATERI AL: Intrav enous: Omnipa que 350con trast volume :100 mL COMPAR VALERIE: CT CT CHEST PE ABD PELVIS W from [address] ABDOME N PELVIS W from [address] ABDOME N PELVIS W from 2023 FINDIN GS: CHEST: Trache obronc hial tree: Patent where visual ized. There is no bronch iectas is. Pulmon jonny parenc hyma: There is scarri ng or atelec tasis seen in the left lung base. No focal consol idatin g infilt rates are seen. No pulmon jonny nodule s are seen. Pulmon jonny Arteri es: No eviden ce of fillin g defect to sugges t pulmon jonny emboli . There is artifa ct seen in the main and right and left pulmon jonny arteri es but no eviden ce of a thromb us. Medias tinum and Yuliya: No domina nt adenop athy or fluid collec tion. The esopha ananth is unrema rkable . Visual ized thyroi d gland: Unrema rkable . Pleura : No effusi on or pneumo thorax . Heart: The heart is not dilate d. No valenzuela ry artery calcif icatio ns are seen. No perica rdial effusi on. Aorta: Thorac ic aorta non-di lated. No eviden ce of dissec tion. Bones: Within normal limits for the patien t's age. Soft tissue s: Unrema rkable . ABDOME N: Liver: Normal densit y. No measur able mass. Portal , Superi or Mesent niurka, and Spleni c Veins: Unrema rkable . Gallbl adder and Biliar y Tract: The patien t is status post Whippl e. The gallbl adder is been remove d. There is pneumo bilia presen t. Pancre as: The head of the pancre as and uncina te proces s have been remove d. In the surgic al bed there is fluid presen t. There is extra lumina l air seen in the surgic al bed with an air-fl uid level. It does appear to be partia lly in capsul ated (serie s 13 images 336 throug h 370. The fluid extend s superi laura into the region of the [place] hepati s. Spleen : Normal . Adrena ls: No masses seen. Kidney s: Normal size, contou r and axis. No radiod ense stones or obstru ctive uropat hy. No masses seen. Abdomi nal Aorta: Abdomi nal portio n non-di lated. Bowel: There is no eviden ce of bowel obstru ction. There has been resect ion of the distal stomac h with a gastro enteri c anasto mosis. There is mild thicke maya of the wall of the proxim al duoden um loop. No eviden ce of append icitis . Perito yimi Cavity : No ascite s, collec tion or mesent niurka inflam matory respon se. No free air. Lymph Nodes: Mildly promin ent lymph nodes are seen in the upper abdome n which may be reacti ve. Bones: Within normal limits for the patien t's age. There is L5 spondy lolysi s but no spondy lolist hesis. Soft Tissue s: There is a small fat contai maya umbili johnie hernia . PELVIS : Bladde r: Symmet shobha disten tion, no gross wall thicke maya. Reprod uctive Organs : Unrema rkable as visual ized. Lymph Nodes: Within normal limits . Bones: Within normal limits . IMPRES [place]: 1. No eviden ce pulmon jonny emboli sm, thorac ic aortic dissec tion or aneury sm. 2. No acute pulmon jonny proces s. 3. Status post Whippl e's proced ure. 4. There is a partia lly in capsul ated air fluid collec tion in the pancre atic bed measur ing 4.9 x 1.9 cm near the surgic al clips. Absces s should be consid ered. There is fluid seen more superi laura above the duoden um and medial to the liver. There is also extra lumina l air seen in this area. 5. Findin gs were discus sed with Dr. Love talbot at 5:07 p.m. on 024. RADIAT ION DOSE DELIVE RED: 2,020. 19mGy. cm Total DLP DATA REPOSI TORY: All CT scans at this facili ty are submit dotty to the [facility] al Radiol ogy Data Regist ry (NRDR) Dose Index Regist ry (DIR) with the [place] an [employer] e of Radiol ogy (ACR). RADIAT ION OPTIMI ZATION : All CT scans at this facili ty use at least one of these dose optimi zation techni ques: automa dotty exposu re contro l; mA and/or kV adjust ment per patien t size (inclu shaw target ed exams where dose is matche d to clinic al indica tion); or iterat kiran recons tructi on. 709- 028: Total DLP = 0.00 mGy-cm Ordere d By: Rayo Ramos M.D. CC: ------ ------ ------ ------ ------ ------ ------ ------ ------ ------ ------ ------ ---- Dictat ed By: Juan Delacruz M.D. 1706 Transc ribed By: Juan Delacruz 1706 This is privil eged, confid ential inform ation intend ed only for the provid er named. Any use or distri bution by any person other than this provid er is strict ly prohib ited. If you receiv e this report in error, please notify us immdaniel maldonado at [phone] and return the origin al report to us at the addres s above. Thank- you. [facility] [address] [place], [address] 03/25/2024 04:38:41 03/26/20 24 03/25/2024 elect gerardo olvera am EKG DAVID Holland NAME: Charles Nick UNIT #: [id number] ORDERI NG PROVID ER: Kenny Garcia DO ACCOUN T #: [id number] PRIMAR Y CARE PROVID ER: Alexa CHAMBERLAIN APRN DATE/T JOHN OF SERVIC E: 1507 : 1975 DAYNA HARPER LOCATI ON: ER ------ ------ --- APPROV ED REPORT ------ ------ -- Exam: Restin g ECG Reason for Exam: Hypote nsion David holland Locati on: E HR:112 bpm ECG Measur ements Heart Rate 112 AXIS ME 152 P 54 QRSd 103 QRS 70 QT 371 T -52 QTc 507 [place] Sinus tachyc ardia. ..rate > 99 Nonspe cific T abnorm alitie s, inferi or leads. ..T <-0.10 mV, II III aVF Prolon ged QT interv al...Q Tc >500mS I have review ed and interp reted ECG and agree with kassidy storm interp retati on. ------ ------ ------ ------ ------ ------ ------ ------ ------ ------ ------ ------ ------ ------ ------ ------ ---- ------ - E-Sign Date: E-Sign Time: 7 ------ ------ --- ADDEND UM APPROV ED REPORT ------ ------ -- Exam: Restin g ECG Reason for Exam: Hypote nsion Patien t Locati on: E HR:112 bpm ECG Measur ements Heart Rate 112 AXIS ME 152 P 54 QRSd 103 QRS 70 QT 371 T -52 QTc 507 [place] Sinus tachyc ardia. ..rate > 99 Nonspe cific T abnorm alitie s, inferi or leads. ..T <-0.10 mV, II III aVF Prolon ged QT interv al...Q Tc >500mS I have review ed and interp reted ECG and agree with softwa re genera dotty interp retati on. I have review ed and I agree with the emerge ncy room physic steph's ECG interp retati on. Electr onical ly signed by: [id number] Cosign ed by: haley [facility] [address] [place], [id number] 03/26/2024 08:57:17 Result Notes None recorded. Problems Name Problem SNOMED Code Status Onset Date Resolution Date Notes Provider Name and Address Organization Details Recorded Time Jasmyne sanchez [place] 89923850 Active 2006 Alieher Crowell [facility] 4 13:29:59 Nephroti c syndrome 55185093 Completed 200603/03/2007 Not Available [facility] 3 04:42:43 Chronic kidney disease stage 3 417504949 Active 2010 Alie indrajose m dorsey [facility] 4 13:29:40 Obstruct kiran sleep apnea syndrome 58444289 Active 2013 Alie indrajose m [facility] 4 13:30:42 Anxiety 68380174 [facility] 4 13:29:15 Type 2 diabetes mellitus without complica tion 234722035 Active [facility] 4 13:30:59 Obesity 854402689 Active 2015 [facility] 4 13:30:35 Edema 625931561 Active 2015 [facility] 4 13:29:50 Allergy to food 081255125 Active 2016 [facility] 4 13:29:10 Adult health examinat ion Active 2018 [facility] 4 13:29:06 Erectile dysfunct ion 565868732 Active 2018 [facility] 4 13:29:54 Neuropat hy due to type 2 diabetes mellitus 05173276490 9106 Active 2020 [facility] 4 13:30:25 Screenin g for malignan t neoplasm of colon Active 2020 [facility] 4 13:30:50 Digestiv e system finding 215870401 Active 2021 [facility] 4 13:29:44 Vitamin B deficien cy 86057328 Active 2021 [facility] 4 13:31:03 Pre-surg mirta evaluati on Completed 202106/01/2022 Problem Code: Z01.818; Problem Code Type: ICD-10; Not Available [facility] 3 04:42:45 Bilatera l hearing loss 90128959 Active 2021 [facility] 4 13:29:19 Venereal disease screenin g Completed 202108/24/2022 Problem Code: Z11.3; Problem Code Type: ICD-10; Not Available [facility] 3 04:42:45 Hypomagn esemia 315108345 Active 2022 Alie Elapark [facility], [facility] 4 13:30:11 Secondar y polycyth emia 05214035 Active 2022 [facility] 4 13:30:54 Kidney stone 13014733 Active 2022 [facility] 4 13:30:16 History of polyp of colon 073261128 Active 2022 [facility] 4 13:30:07 Disorder of nasal sinus 0432611 Active 2022 OLGA MARCUS, SENIOR LABORATORY TECHNICIAN [address], [place], [address] , [facility] 4 08:08:16 Nonalcoh olic steatohe patitis 235719049 Active 2022 [facility], [facility] 4 13:30:32 Body mass index 30+ - obesity 187606995 Active 2022 [facility] 4 13:29:23 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 mellitus 124455643 Active 2022 [facility] 4 13:30:46 Nephroti c syndrome , diffuse membrano us glomerul onephrit is 350264671 Active 2022 [facility] 4 13:30:20 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 25018298104 00 Active 2022 [facility], [facility] 4 13:30:03 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 69747087523 00 Completed 202004/10/2021 Problem Code: E11.621; Problem Code Type: ICD-10; Alie dorsey [facility] 4 13:30:03 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 88550028463 00 Completed 202007/25/2022 Problem Code: E11.621; Problem Code Type: ICD-10; Alie dorsey [facility] 4 13:30:03 Hypergly cemia due to type 2 diabetes mellitus 01468384463 9109 Completed 201608/15/2017 Problem Code: E11.65; Problem Code Type: ICD-10; Not Available [facility] 3 04:42:47 Phimosis 607213481 Completed 201704/29/2022 Problem Code: N47.1; Problem Code Type: ICD-10; Not Available [facility] 3 04:42:47 Snoring 56320042 Completed 201303/01/2016 Not Available [facility] 3 04:42:48 Imaging of abdomen abnormal 592532944 Completed 202212/20/2022 Problem Code: R93.5; Problem Code Type: ICD-10; Not Available [facility] 3 04:42:48 Adult health examinat ion Completed 201403/01/2016 Problem Code: Z00.00; Problem Code Type: ICD-10; Alie dorsey [facility] 4 13:29:06 Obesity 248834610 Completed 200606/11/2023 Alie dorsey [facility] 4 13:30:35 Fatigue 13110968 Completed 201303/01/2016 Not Available [facility] 3 04:42:48 Acute upper respirat ory infectio n 20217150 Completed 202004/29/2022 Problem Code: J06.9; Problem Code Type: ICD-10; Not Available [facility] 3 04:42:49 Nausea 241313278 Completed 202212/20/2022 Problem Code: R11.0; Problem Code Type: ICD-10; Not Available [facility] 3 04:42:49 Type 2 diabetes mellitus without complica tion 810271713 Completed 202201/10/2023 Problem Code: E11.9; Problem Code Type: ICD-10; Alie dorsey [facility] 4 13:30:59 Dyssomni a 20465117 Completed 201303/01/2016 Problem Code: 780.59; Problem Code Type: ICD-9; Not Available [facility] 3 04:42:49 Acute bronchit is 52307696 Completed 201708/09/2019 Problem Code: J20.9; Problem Code Type: ICD-10; Not Available [facility] 3 04:42:49 Nausea and vomiting 41816560 Completed 202107/25/2022 Problem Code: R11.2; Problem Code Type: ICD-10; Not Available [facility] 3 04:42:50 Sleep apnea 18926762 Completed 201306/11/2023 Problem Code: 780.57; Problem Code Type: ICD-9; Not Available [facility] 3 04:42:50 Disturba nce of consciou sness 0206211 Completed 201303/01/2016 Problem Code: 780.09; Problem Code Type: ICD-9; Not Available [facility] 3 04:42:50 Acute sinusiti s 01480971 Completed 202004/10/2021 Problem Code: J01.90; Problem Code Type: ICD-10; Not Available [facility] 3 04:42:50 Balaniti s 83332427 Completed 201608/15/2017 Problem Code: N48.1; Problem Code Type: ICD-10; Not Available [facility] 3 04:42:51 Sleep disorder 83284464 Completed 201303/01/2016 Problem Code: 780.50; Problem Code Type: ICD-9; Not Available [facility] 3 04:42:51 Nodule of subcutan eous tissue of left foot 98343782788 942824 Active 2023 OLAG MARCUS APRN [address], [place], [address] , [facility] 4 08:13:06 Benign prostati c hyperpla mercy 253397759 Active 2023 Alie Crowell [facility], [facility] 4 13:31:06 Headache 05137607 Active 2023 OLGA MARCUS APRN [address], [place], [address] , [facility] 4 08:57:45 Gynecoma stia 4820604 Active 2023 Alie Crowell [facility], [facility] 4 13:31:13 Ulcer of left foot 002008301 Active 2023 ARNALDO GOMEZ CMA null, [facility] 4 09:47:50 Fibromat osis of plantar fascia of left foot 58205170568 263390 Active 2023 Alie yasmeen [facility], [facility] 4 13:31:10 Carcinom a of duodenum 711154491 Active 2023 EGD 01/06, biopsy at that time OLGA MARCUS APRN [address], [place], [address] , [facility] 4 09:30:26 Pain of left shoulder joint 54678475586 577447 Active 2023 OLGA MARCUS APRN [address], [place], [address] , [facility] 4 09:14:45 Cramp in lower limb 241879414 Active 2023 OLGA MARCUS APRN [address], [facility] [address] , [facility] 4 09:15:29 Pain in right hip joint 73302703447 9102 Active 2023 OLGA MARCUS APRN [address], [facility] [address] , [facility] 4 09:19:09 Prolonge d QT interval 063287522 Active 2023 OLGA MARCUS APRN [address], [facility] [address] , [facility] 4 09:53:55 Notes:*Problem Name: Duodena l polyp *Problem Status: active *Comments: *Problem Code: K31.7 *Problem Code Type: ICD-10 *Note Date: 2022 Problem Notes Documentation Provider Name and Address Organization Details Recorded Time Automotive Electrician Consult Note : Po diatry Office Visit PATIENT NAME: Charles Nick UNIT #: [id number] ADMITTING PROVIDER: Alejandra Schreiber DPM 924 PRIMARY CARE PROVIDER: OLGA MARCUS APRN DATE OF ADMI : 1975 Assessment Plan (1) Follow up: (2) Cellulitis: (3) Diabetic foot ulcer: (4) Ulcer of right foot with fat layer exposed: (5) Hyperpigmented skin lesion: (6) Type 2 diabetes mellitus with diabetic nephropathy: (7) Ulcer of left foot, limited to breakdown of skin: (8) Plantar fascial fibromatosis of left foot: (9) Venous insufficiency: (10) Peripheral neuropathy: (11) Nevus: Cellulitis, right foot: Now resolved Neuropathic ulcer, right foot with fat layer exposed: I recommend sharp debridement of the ulcer today to decrease bioburden and allow the ulcer to heal. The patient agrees. Patient was advised sharp debridement of the ulcer is medically necessary. With patient consent, the ulcer was excisionally debrided of all necrotic tissue, full thickness including subcutaneous tissue, with a sterile # 15 blade, until healthy bleeding tissue was noted. The ulcer measures (see above) after debridement. There is no purulent drainage or sinus tracking noted. No tendon or bone exposure noted. The ulcer was cleaned with wound cleanser and dressings were applied withhydrofera blue and dry dressing. The patient is instructed on daily wound care and keeping the ulcer clean and covered and off loading the ulcerated area. If there is any worsening or signs of infection, the patient will contact us immediately. Continue to use the cam boot with peg assist insert Follow up in 2-3 weeks Resumed 2 furosemide 20 mg PO BID furosemide 40 mg PO BID Adeola Lyons DNP Plan Detail Total time on date of encounter, (vqqo-bp-zzgd and non vyki-ku-skty) (minutes): 30 Time was spent: reviewing prior notes and diagnostics, providing direct patient care, ordering diagnostics and/or referrals, documenting today's visit, updating the EMR, coordinating care and other HPI 3 week wound care f/u. 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 He reports recently being hospitalized at [facility] (x1wk) for DKA. Exam Cardio Other: DP/ PT pulses 2/4, CFT < 3 seconds, pedal hair present, normal proximal to distal cooling, normal skin texture and turgor. Varicosities and telangiectasias noted bilaterally. Mild edema noted bilaterally. Musc Other: Fairly rectus foot structure without an everted nor inverted resting calcaneal stance position. Decreased ROM of the ankle joints is noted, though, with the restriction less pronounced with knee flexion. No other significant musculoskeletal abnormalities are noted other than lesser digital deformities and hallux rgidus deformities with fixed first ray elevatus. Small immobile round lesion noted at the medial band of the plantar fascia, left foot consistent with plantar fibroma Skin Other: Nails 1-5 are not elongated, slightly dystrophic, thickened, discolored, with some incurvated, with subungual debris, and without pain to palpation today. No surrounding erythema, purulence, fluctuance or signs of infection noted. Full-thickness ulcer noted sub, hyperkeratotic borders, base is 50% necrotic, 50% granular right second and third metatarsal heads, there is no erythema to the right foot dorsally at the level of the metatarsal phalangeal joints as well as the fifth toe was. There is no probe to bone or capsule no tunneling or undermining no proximal streaking or lymphangitis, measures 1.8 x 1.4 x 0.2 cm Flat hyperpigmented skin lesions x 2 with irregular borders noted to the right hallux as noted in the images below. Neuro Other: Protective sensation absent via [employer] 5.07 monofilament. Negative tinel???s sign. Muscle strength 5/5. No other neurological deficits Extrem Other: pre-debridement image above post-debridement image below Intake Vital Signs 3 04/06/24 14:46 BP 100/70 Blood Pressure Location Rt brachial Position Sitting Pulse 96 H Pulse Source Monitor Temp 96.8 F L Temp Source Temporal Artery Scan Pulse Oximetry (%) 97 Oxygen Delivery Method room air Intake Visit Reasons: Follow Up Nurse Note: 3 week wound care f/u, neuropathic ulcer of the right foot, has bandaid on it today with [employer]. Does report he has Mepilex available and has been using this as well. 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 He reports recently being hospitalized at [facility] (x1wk) for DKA. He reports he is not taking any pain meds which are listed on his [facility] med list today. He does have a post-op shoe at home. He is seeing his surgeon in 2 days and will discuss his low BP pattern (noted at PT and here today0. Now attending PT twice weekly to build strength after 2 recent hospitalizations. Measurements from 03/16/24: 1.7 x 1.4 x 0.2 cm Measurements today: Pre-debridement 1.5cm x 1.0cm Post-debridement 1.8cm x 0.9 x 0.2 Allergies 3 Allergy/AdvReac Type Severity Reaction Status Date / Time Penicillins Allergy Intermediate Anaphylaxsi Verified 04/06/24 14:44 s Home Medications 3 ???Medication ???Instructions ???Recorded ???Confirmed ???Type ondansetron 4 mg disintegrating 4 mg PO Q8H PRN nausea and 09/23/22 04/06/24 Rx tablet vomiting #30 tabs dapagliflozin propanediol 10 mg 10 mg PO DAILY 11/10/23 04/06/24 History tablet (Farxiga) montelukast 10 mg tablet 10 mg PO DAILY 11/10/23 04/06/24 History magnesium oxide 400 mg PO DAILY 12/30/23 04/06/24 History gabapentin 600 mg tablet 600 mg PO TID PRN 02/24/24 04/06/24 History insulin glargine-yfgn 100 unit/mL 10 unit subcut DAILY 03/24/24 04/06/24 History (3 mL) subcutaneous pen (Semglee (insulin glargine-yfgn) Pen) potassium chloride 10 mEq 10 meq PO DAILY 03/24/24 04/06/24 History tablet,extended release amlodipine 10 mg tablet 10 mg PO DAILY 04/06/24 04/06/24 History amoxicillin 500 mg-potassium 2 tab PO TID 04/06/24 04/06/24 History clavulanate 125 mg tablet citalopram 10 mg tablet (Celexa) 10 mg PO DAILY 04/06/24 04/06/24 History fluconazole 200 mg tablet 200 mg PO TID 04/06/24 04/06/24 History furosemide 20 mg tablet 20 mg PO BID 04/06/24 04/06/24 History qwseab-xkyippyd-nkvcmyx 2 cap PO TID 04/06/24 04/06/24 History 40,000-126,000-168,000 unit capsule, delay rel (Zenpep) naltrexone 50 mg tablet 50 mg PO DAILY 04/06/24 04/06/24 History omeprazole 20 mg capsule,delayed 20 mg PO DAILY 04/06/24 04/06/24 History release oxycodone 5 mg capsule 5 mg PO Q4H PRN 04/06/24 04/06/24 History PFSH All Active Problems Intra-abdominal abscess (Acute) Acidosis (Acute) Acute dehydration (Acute) Cellulitis (Acute) Ulcer of right foot with fat layer exposed (Acute) Hyperpigmented skin lesion (Acute) Nevus (Acute) Adenocarcinoma of duodenum (Acute) Peripheral neuropathy (Acute) Venous insufficiency (Acute) Plantar fascial fibromatosis of left foot (Acute) Ulcer of left foot, limited to breakdown of skin (Acute) Type 2 diabetes mellitus with diabetic nephropathy (Acute) Type 2 diabetes mellitus without complication (Acute) 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) Tubular adenoma (Acute 12/04/22) Steatosis (Acute) Duodenal nodule (Acute) Abnormal abdominal CT scan (Acute) Abnormal bowel habits (Acute) Cataracts, bilateral (Acute) Diabetic foot ulcer (Acute) Nausea and vomiting (Acute) Screening for colon cancer (Acute) CKD (chronic kidney disease) (Chronic) JOSE (obstructive sleep apnea) (Chronic) Depression with anxiety (Acute) Diabetic neuropathy (Acute) Obesity (Chronic) Peripheral edema (Acute) Bowel habit changes (Acute) Vitamin B12 deficiency (Acute) Decreased hearing (Acute) Screening for STD (sexually transmitted disease) (Acute) Neuropathic ulcer (Acute) Wound of right foot (Acute) Wound of left foot (Acute) Foreign body (FB) in soft tissue (Acute) Cellulitis of foot, right (Acute) Phimosis (Acute) Depression (Chronic) HTN (hypertension) with goal to be determined (Chronic) Diabetes (Chronic) Medical History Anxiety Calculus of distal left ureter Fatty liver Erectile dysfunction Surgical History History of colonoscopy with polypectomy ( 12/04/22) History of esophagogastroduodenoscopy (EGD) ( 12/2023) H/O vasectomy History of cholecystectomy Family History Brother Diabetes Asthma Father Diabetes Angina pectoris Kidney failure Acute CVA (cerebrovascular accident) Sister Diabetes Mental and behavioral problem Mother , age 64 DM Diabetes Maternal Grandmother Cancer Social History Smoking/Tobacco Use Status: Never Smoking risk assessment performed?: Yes Alcohol Intake: current Alcohol Intake frequency: holidays/special occasions only Drug use: Never Substance use type: does not use Household members: children Housing: house Number of Children: 3 current occupation: [employer] What is your relationship status?: Panel score (0-1 are the most socially isolated patients): 0 Do you feel safe at home: Yes Do you feel safe in your relationship?: Yes Coding Diagnoses Follow up Z09 Cellulitis L03.90 Diabetic foot ulcer E11.621; L97.509 Ulcer of right foot with fat layer exposed L97.512 Hyperpigmented skin lesion L81.9 Type 2 diabetes mellitus with diabetic nephropathy E11.21 Ulcer of left foot, limited to breakdown of skin L97.521 Plantar fascial fibromatosis of left foot M72.2 Venous insufficiency I87.2 Peripheral neuropathy G62.9 Nevus D22.9 CPT Codes Debride Skin/Tissue - 43524 (13857) cc: - Dictated by: Alejandra Schreiber DPM Dictated: 04/06/24 Time: 1424 Date: 04/06/241521 Date: Date: Transcribed Date: 04/06/24 Transcribed Time: 1424 By: XENIA This is privileged, confidential information, intended only for the provider named. Any use or distribution by any person other than this provider is strictly prohibited. If you receive this report in error, please notify us immediately at [phone] and return the original report to us at the address above. Thank you. OLGA MARCUS APRN [facility] [address], [place], [address], [facility] 04/13/2024 09:08:25 Procedures Surgical History Date Name Laterality Status Provider Name and Address Organization Details Recorded Time 4 IV insert completed Kinsey Oliveira RN [facility], [facility] 03/24/2024 15:58:08 4 endoscopy completed ARNALDO GOMEZ CMA null, [facility] 01/02/2024 15:34:11 Imaging Results Imaging Date Name Status LastModified by Organization Details LastModified Time 01/26/2024 MRI imaging report completed [address] [place], [address] 01/26/2024 15:35:36 01/26/2024 MRI imaging report completed [address] [place], [address] 02/02/2024 18:04:55 01/27/2024 PET, skull base to mid-thigh completed ОЛЬГА Information not available 02/06/2024 15:50:24 02/26/2024 CT imaging report completed [address] [place], [address] 02/26/2024 13:16:53 03/24/2024 CT imaging report completed [address] [facility] [place], [address] 03/25/2024 04:38:41 03/25/2024 electrocardiogram completed [address] [place], [address] 03/26/2024 08:57:17 Procedure Notes None recorded. Medical Equipment None Reported. Allergies Allergen ID Allergen Name Allergen Category Reaction Reaction Severity Criticality Documentation Date Start Date Code Code System Note Provider Name and Address Organization Details Recorded Time 57167 Medicinal product containin g penicilli n and acting as antibacte rial agent (product) medicatio n other mild Not available 11/29/20232006 72801 05 SNOMED Swell ing of throa amalia Lim [facility] 13:58:03 Medications Name Sig Start Date Stop Date Status Note LastModified by Organization Details LastModified Time Prescript ion - Prior Authoriza tion Request active Not Available Not Available Not Available furosemid e 40 mg tablet TAKE 1 TABLET BY MOUTH TWICE A DAY 03/11 completed Changed dosing per [facility] 03/08/24 Not Available Not Available Not Available acetamino phen 325 mg tablet Take 2 tablets every 8 hours by oral route as needed. active Per [facility] d/c summary 04/01/24 Not Available Not Available Not Available gabapenti n 600 mg tablet TAKE ONE TABLET BY MOUTH THREE TIMES A DAY NEEDED FOR PAIN 2023 active Not Available Not Available Not Avai lable doxycycli ne hyclate 100 mg capsule TAKE ONE CAPSULE BY MOUTH EVERY DAY FOR 7 DAYS 03/11 completed Not Available Not Available Not Available citalopra m 40 mg tablet TAKE ONE TABLET BY MOUTH EVERY DAY active Not Available Not Available No t Available sildenafi l 50 mg tablet Take 1 tablet by mouth once a day as needed take 1 hour prior to planned intercou rse; no more than once per day 09/17 completed Not Available Not Available Not Available citalopra m 10 mg tablet TAKE ONE TABLET BY MOUTH EVERY DAY 09/23 completed Not Available Not Available Not Available fluconazo le 200 mg tablet TAKE THREE TABLETS BY MOUTH DAILY FOR 14 DAYS active Not Available Not Available No t Available naltrexon e 50 mg tablet TAKE ONE TABLET BY MOUTH EVERY DAY active Not Available Not Available No t Available lisinopri l 20 mg tablet Take 1 tab by mouth daily 2015 active Not Available Not Available Not Avai lable ondansetr on HCl 4 mg tablet Take 1 tablet by mouth once a day as needed nausea/ vomiting 04/28 completed Not Available Not Available Not Available Zithromax 250 mg tablet Take 2 by mouth today, then take 1 by mouth daily x 4 days 08/04 completed Not Available Not Available Not Available clindamyc in HCl 150 mg capsule active Stopped per [facility] d/c summary 04/01/24 Not Available Not Available Not Available Diflucan 150 mg tablet Take 1 tab by mouth now and 1 tab in 1 week. 09/21 completed Not Available Not Available Not Available Wellbutri n SR 150 mg tablet, 12 hr sustained -release 1 TAB bid 08/26 completed Not Available Not Available Not Available potassium chloride ER 10 mEq tablet,ex tended release TAKE ONE TABLET BY MOUTH TWICE A DAY active Not Available Not Available No t Available metronida zole 500 mg tablet TAKE ONE TABLET BY MOUTH TWICE A DAY FOR 14 DAYS active Not Available Not Available No t Available terazosin 1 mg capsule Take 1 capsule by mouth at bedtime 06/06 completed Not Available Not Available Not Available amlodipin e 5 mg tablet TAKE ONE TABLET BY MOUTH EVERY DAY 09/23 completed Not Available Not Available Not Available sulfameth oxazole 800 mg-trimet hoprim 160 mg tablet 03/15 completed Not Available Not Available Not Available sildenafi l 100 mg tablet TAKE ONE TABLET BY MOUTH 1 HOUR PRIOR TO INTERCOU RSE 04/10 completed Not Available Not Available Not Available citalopra m 20 mg tablet TAKE ONE TABLET BY MOUTH EVERY DAY (DOSE INCREASE ) 02/22 completed dose increase Not Available Not Available Not Available famotidin e 20 mg tablet Take 1 tablet by mouth once a day 05/01 completed Not Available Not Available Not Available magnesium oxide 400 mg (241.3 mg magnesium ) tablet Take 1 tablet every day by oral route. active Not Available Not Available No t Available lorazepam 0.5 mg tablet TAKE ONE TABLET BY MOUTH EVERY DAY NEEDED active Stopped per [facility] d/c summary 04/01/24 Not Available Not Available Not Available tamsulosi n 0.4 mg capsule TAKE ONE CAPSULE BY MOUTH AT BEDTIME 03/15 completed Not Available Not Available Not Available Humalog U-100 Insulin 100 unit/mL subcutane ous solution INJECT 0-11 UNITS SUBCUTAN EOUSLY THREE TIMES A DAY WITH MEALS DIRECTED 04/23 completed Not Available Not Available Not Available OneTouch Ultra Test strips Test once daily 2015 active for onetouch ultra 2 E11.9 Not Available Not Available Not Available amlodipin e 10 mg tablet TAKE ONE TABLET BY MOUTH EVERY DAY 04/23 completed Not Available Not Available Not Available Prozac 20 mg capsule 1 tab daily 05/08 completed Not Available Not Available Not Available metformin 1,000 mg tablet take 1/2 tab BID 10/23 completed not taking Not Available Not Available Not Available tobramyci n 0.3 % eye drops INSTILL ONE DROP IN EACH EYE TWO TIMES A DAY FOR 10-14 DAYS 10/23 completed Not Available Not Available Not Available glimepiri de 4 mg tablet Take 1/2 tablet by mouth twice a day 07/25 completed Not Available Not Available Not Available lidocaine 5 % topical patch APPLY 1 PATCH BY TOPICAL ROUTE ONCE DAILY (MAY WEAR UP TO 12HOURS. ) 03/15 completed Not Available Not Available Not Available losartan 25 mg tablet Take 1/2 tablet by mouth once a day 09/17 completed not taking lower's BP too much Not Available Not Available Not Available gabapenti n 300 mg capsule start 1 cap at HS, increasi ng to 1 cap TID as tolerate d 2018 active Not Available Not Available Not Avai lable omeprazol e 20 mg capsule,d elayed release TAKE ONE CAPSULE BY MOUTH EVERY DAY active Not Available Not Available No t Available monteluka st 10 mg tablet TAKE ONE TABLET BY MOUTH EVERY DAY active Not Available Not Available No t Available hydroxyzi ne HCl 25 mg tablet Take 1 tablet three times a day prn for anxiety 05/08 completed Not Available Not Available Not Available bisacodyl 5 mg tablet,de layed release USE DIRECTED FOR COLONOSC OPY PREP 09/29 completed Not Available Not Available Not Available hydrochlo rothiazid e 25 mg tablet Take 1 tab by mouth daily 02/11 completed Not Available Not Available Not Available furosemid e 20 mg tablet Take 0.5 tablets every day by oral route. active Per [facility] [place] summary continue 04/01/24 Not Available Not Available Not Available lorazepam 1 mg tablet TAKE 1 TABLET BY MOUTH 1 HOUR PRIOR TO MRI/ PET ( NO DRIVING) 02/22 completed Not Available Not Available Not Available polyethyl gema glycol 3350 17 gram/dose oral powder TAKE 1 SCOOP MIXED IN LIQUID BY MOUTH ONCE A DAY active as needed Not Available Not Available Not Available levofloxa sony 750 mg tablet TAKE ONE TABLET BY MOUTH EVERY DAY FOR 14 DAYS active Not Available Not Available No t Available lisinopri l 40 mg tablet Take 1 tab by mouth daily 2015 active Not Available Not Available Not Avai lable ondansetr on 4 mg disintegr ating tablet DISSOLVE ONE TABLET ON THE TONGUE EVERY 8 HOURS NEEDED FOR NAUSEA active Not Available Not Available No t Available losartan 100 mg tablet 1 tab a day 10/06 completed Not Available Not Available Not Available doxycycli ne hyclate 100 mg tablet Take 1 tab by mouth twice daily 12/22 completed Not Available Not Available Not Available loratadin e 10 mg tablet TAKE ONE TABLET BY MOUTH EVERY DAY prn active Not taking Not Available Not Available Not Available amoxicill in 500 mg-potass ium clavulana te 125 mg tablet TAKE TWO TABLETS BY MOUTH THREE TIMES A DAY FOR 7 DAYS 04/23 completed Not Available Not Available Not Available Ventolin HFA 90 mcg/actua tion aerosol inhaler 2 puffs every 6 hours till clear 08/09 completed Not Available Not Available Not Available oxycodone 5 mg tablet TAKE 1 TO 2 TABLETS BY MOUTH EVERY 4 HOURS NEEDED FOR PAIN (1 TABLET FOR MODERATE PAIN 4-6 NOT CONTROLL ED BY TYLENOL AND 2 TABLETS FOR SE 03/15 completed Not Available Not Available Not Available valsartan 40 mg tablet Take 1 tablet by mouth once a day 10/29 completed Not Available Not Available Not Available tadalafil 10 mg tablet TAKE 1 TABLET BY MOUTH ONCE A DAY NEEDED. TAKE 1 HOUR PRIOR TO SEXUAL INTERCOU RSE 2021 completed Not Available Not Available Not Available tadalafil 20 mg tablet TAKE 1 TABLET BY MOUTH EVERY DAY NEEDED active [facility] Not Available Not Available Not Available BD Ultra-Fin e Mini Pen Needle 31 gauge x 3/16 INJECT EVERY NIGHT active Not Available Not Available No t Available potassium chloride 10meq 1 tablet twice daily 04/23 completed Not Available Not Available Not Available oxycodone 5mg 1-2 tabs every 4 hours as needed for pain. 03/15 completed Not Available Not Available Not Available furosemid e bid 2016 active Not Available Not Available Not Renea malik Prodigy Autocode Meter kit Check glucose daily 07/15 completed E11.9 Not Available Not Available Not Available Gray Craig Lancets 30 gauge Test once daily 2015 active E11.9 Not Available Not Available Not Renea malik MediHoney (honey) 80 % topical gel Apply a small amount to affected area once a day 2022 active Not Available Not Available Not Renea malik Creon 36,000 unit-114, 000 unit-180, 000 unit capsule,d elayed release TAKE 2 CAPSULES BY MOUTH DAILY WITH MEALS , AND 1 CAPSULE WITH SNACKS active Not Available Not Available No t Available Farxiga 10 mg tablet TAKE ONE TABLET BY MOUTH EVERY DAY 04/23 completed Stopped per [facility] d/c summary 04/01/24 Not Available Not Available Not Available Farxiga 5 mg tablet TAKE ONE TABLET BY MOUTH EVERY DAY 09/23 completed Not Available Not Available Not Available Levemir FlexTouch U-100 Insulin 100 unit/mL (3 mL) subcutane ous pen inject 10-20 units sub Q at bedtime increase by 5 units every 3 days until fasting glucose is less than 160 12/12 completed Not Available Not Available Not Available Trulicity 1.5 mg/0.5 mL subcutane ous pen injector Inject 3 mg subcutan eously once a week once a week for 4 weeks. Call when you have 1 week left 02/03 completed Not Available Not Available Not Available Trulicity 0.75 mg/0.5 mL subcutane ous pen injector Inject 0.75 mg subcutan eously once a week 12/20 completed Not Available Not Available Not Available Metamucil 3.4 gram/5.4 gram oral powder Take 1 scoop by mouth once a day 09/29 completed Not Available Not Available Not Available cyanocoba lucía (vitamin B-12) 1,000 mcg capsule Take 1 capsule by mouth once a day 06/17 completed not taking this as he is taking multi vitamin 2 daily Not Available Not Available Not Available Bydureon BCise 2 mg/0.85 mL subcutane ous auto-inje ctor INJECT 2MG EVERY WEEK BY SUBCUTAN EOUS ROUTE DIRECTED 02/22 completed Not Available Not Available Not Available Zenpep 40,000 unit-126, 000 unit-168, 000 unit capsule,d elayed release TAKE 3 CAPSULE BY MOUTH WITH MEALS 1 CAPSULE WITH SNACKS active Not Available Not Available No t Available Ozempic 0.25 mg or 0.5 mg (2 mg/1.5 mL) subcutane ous pen injector Inject 0.5 mg subcutan eously once a week Start this after you have done 0.25mg weekly for 4 weeks 08/22 completed Not Available Not Available Not Available magnesium 400 mg (as magnesium oxide) tablet Take 1 tablet by mouth at bedtime 09/23 completed Not Available Not Available Not Available BD Page 2nd Gen Pen Needle 32 gauge x /32 USE ONE PEN NEEDLE PER INJECTIO N TWICE A DAY active Not Available Not Available No t Available Inflection EnergyTouch Ultra2 Meter test once daily 2015 active E11.9 Not Available Not Available Not Avai lable Trulicity 3 mg/0.5 mL subcutane ous pen injector Inject 3 mg subcutan eously once a week Will increase to 4.5 mg. once a week in one month . 02/24 completed Not Available Not Available Not Available Trulicity 4.5 mg/0.5 mL subcutane ous pen injector INJECT 4.5MG SUBCUTAN EOUSLY ONCE A WEEK 10/23 completed Not Available Not Available Not Available Multivita min Gummies 200 mcg chewable tablet 2 daily active Not Available Not Available Not Available Ozempic 1 mg/dose (4 mg/3 mL) subcutane ous pen injector Inject 1 mg subcutan eously once a week 11/19 completed Not Available Not Available Not Available Semglee (insulin glargine- yfgn) Pen 100 unit/mL (3 mL) subcutane ous INJECT (Increas e) semglee to 13 units daily for 7 days, then if sugar still greater than 120, increase to 16 units 2023 active Not Available Not Available Not Avai lable Semglee (insulin glargine- yfgn) 100 unit/mL subcutane ous solution INJECT 10 UNITS SUBCUTAN EOUSLY DAILY 05/20 completed Not Available Not Available Not Available FreeStyle Lina 3 Sensor device USE DIRECTED active Not Available Not Available No t Available FreeStyle Lina 3 [place] USE DIRECTED active Not Available Not Available No t Available Vitals Date Recorded Body height Systolic blood pressure Diastolic blood pressure Provider Name and Address Organization Details Last Updated DateTime 02/02/2024 186.69 cm 130 mm[Hg] 80 mm[Hg] STEPHANI JOHNSON CMA [facility]. 02/02/2024 11:07:32 Date Recorded Body height Body mass index (BMI) Body weight Oxygen saturation Oxygen saturation in Arterial blood by Pulse oximetry Heart rate Systolic blood pressure Diastolic blood pressure Provider Name and Address Organization Details Last Updated DateTime 4 186.69 cm 37.9 kg/m2 375536. 18 g 96 % 96 % 86 /min 148 mm[Hg] 96 mm[Hg] ARNALDO GOMEZ [facility] 4 09:06:22 Date Recorded Systolic blood pressure Diastolic blood pressure Provider Name and Address Organization Details Last Updated DateTime 02/23/2024 132 mm[Hg] 88 mm[Hg] OLGA MARCUS APRN [address], [place], [address] 02/23/2024 09:24:02 Date Recorded Body height Body mass index (BMI) Body weight Oxygen saturation Oxygen saturation in Arterial blood by Pulse oximetry Heart rate Systolic blood pressure Diastolic blood pressure Provider Name and Address Organization Details Last Updated DateTime 4 186.69 cm 34.4 kg/m2 611158. 39 g 97 % 97 % 116 /min 128 mm[Hg] 66 mm[Hg] MELANIE MEIER MA [facility] 4 15:00:31 Date Recorded Body height Heart rate Heart rate Body height Heart rate Heart rate Systolic blood pressure Diastolic blood pressure Systolic blood pressure Diastolic blood pressure Systolic blood pressure Diastolic blood pressure Systolic blood pressure Diastolic blood pressure Provider Name and Address Organization Details Last Updated DateTime 4 186.69 cm 100 /min 120 /min 186.69 cm 100 /min 120 /min 118 mm[Hg] 78 mm[Hg] 84 mm[Hg] 62 mm[Hg] 118 mm[Hg] 78 mm[Hg] 84 mm[Hg] 62 mm[Hg] STEPHANI JOHNSON [facility] 4 13:16:26 Date Recorded Body height Body mass index (BMI) Body weight Oxygen saturation Oxygen saturation in Arterial blood by Pulse oximetry Heart rate Body temperature Systolic blood pressure Diastolic blood pressure Provider Name and Address Organization Details Last Updated DateTime 4 186.69 cm 34.2 kg/m2 747710. 79 g 97 % 97 % 81 /min 97.89 [degF] 128 mm[Hg] 94 mm[Hg] ARNALDO GOMEZ [facility] 11:42:08 Date Recorded Systolic blood pressure Diastolic blood pressure Provider Name and Address Organization Details Last Updated DateTime 04/23/2024 122 mm[Hg] 90 mm[Hg] OLGA MARCUS, YOCASTA [address], [place], [address], [facility] 04/23/2024 12:17:35 Social History Question Answer Notes LastModified by Organizat ion Details LastModified Time Tobacco Smoking Status Never Smoker ARNALDO GOMEZ CHART CALCULATOR null, [facility] 12/05/2023 08:46:50 What Was The Date Of Your Most Recent Tobacco Screening? 12/05/2023 Information not available 12/05/2023 Has Tobacco Cessation Counseling Been Provided? No Information not available 12/05/2023 Do You Or Have You Ever Used Any Other Forms Of Tobacco Or Nicotine? No Information not available 12/05/2023 Sex: Male Functional Status None recorded. Mental Status None recorded. Family History Relationship Description Onset Age of this Age Resolved Age Notes Brother Family history of di abetes mellitus type 1 Father Family history of di abetes mellitus type 1 Sister Family history of di abetes mellitus type 1 Notes:*Problem: Mother: Dece ased age 64- DM with complications Father: . ? kidney failure. CVA, angina, mental problems Sisters: older, overweight Brothers: older- asthma Children: 3- 1 with autism Family History of: Other: MGM some type cancer Colon CA: No Prostate CA: no Prostate CA: no Medical History No medical history recorded. Immunizations Vaccine Type Date Status Provider Name and Address Organization Details Recorded Time Td (adult), 2 Lf tetanus toxoid, preservative free, adsorbed 04/22/2017 completed Not Available [facility] 07/25/2023 06:32:54 Tdap 02/27/2007 completed Not Available [facility] 06:32:54 Influenza, split virus, quadrivalent, PF 09/21/2020 completed Not Available [facility] 07/25/2023 06:32:54 Influenza, split virus, quadrivalent, PF 06/19/2021 completed Not Available [facility] 07/25/2023 06:32:54 Influenza, split virus, quadrivalent, PF 08/02/2019 completed Not Available [facility] 07/25/2023 06:32:54 COVID-19 vaccine, vector-nr, rS-Ad26, PF, 0.5 mL 01/19/2021 completed Not Available [facility] 07/25/2023 06:32:54 pneumococcal polysaccharide PPV23 09/21/2020 completed Not Available [facility] 2022 06:32:54 influenza, unspecified formulation 07/05/2016 completed Not Available [facility] 07/25/2023 06:32:54 influenza, unspecified formulation 07/16/2017 completed Not Available [facility] 07/25/2023 06:32:54 Influenza, split virus, quadrivalent, PF 06/17/2023 completed Not Available [facility] 09/26/2023 05:33:26 Past Encounters Encounter ID Performer Location Encounter Start Date Encounter Closed Date Diagnosis/Indication Diagnosis SNOMED-CT Code Diagnosis ICD10 Code [id number] OLGA MARCUS[address] [address] 09/23/2023 08:00:11 09/23/2023 08:21:23 Nodule of subcutaneous tissue of left foot 3350429390 0357350 R22.42 Obesity 001690760 E66.9 [id number] [address] [address] 10/23/2023 11:49:56 10/23/2023 13:02:45 Obstructive sleep apnea syndrome 24698946 G47.33 Erectile dysfunction 860 075845 F52.21 Disorder o f nasal sinus 1371406 J34.9 Essential hypertension 51301464 I10 N18.9 R60.9 Anxiety 49939360 F41.9 F32.A Z73.3 Secondary polycythemia 69977424 D75.1 Nonalcohol ic steatohepatitis 260669012 K75.81 Digestive system finding 896892026 R19.8 Type 2 makayla betes mellitus without complication 341824419 E11.9 E11.40 Nephrotic syndrome, diffuse membranous glomerulonephritis 121970728 N04.20 Body mass index 30+ - obesity 326560733 Z68.36 Nodule of subcutaneous tissue of left foot 3405974228 3491996 R22.42 Benign pro static hyperplasia 047952150 N40.0 [id number] STEPHANI JOHNSON [address] [address] 11/24/2023 09:55:54 11/24/2023 10:08:02 Essential hypertension 01330539 I10 N18.9 R60.9 [id number] OLGA MARCUS [address] [address] 12/05/2023 08:36:54 12/05/2023 10:58:03 Type 2 diabetes mellitus without complication 766892434 E11.9 E11.40 Essential hypertension 12895376 I10 N18.9 R60.9 Anxiety 41727453 F41.9 F32.A Z73.3 Obstructiv e sleep apnea syndrome 85830018 G47.33 Body mass index 30+ - obesity 733677522 Z68.36 Digestive system finding 047452047 R19.8 Nonalcohol ic steatohepatitis 738961360 K75.81 Secondary polycythemia 89769332 D75.1 Disorder o f nasal sinus 4138712 J34.9 Nephrotic syndrome, diffuse membranous glomerulonephritis 255119481 N04.20 Nodule of subcutaneous tissue of left foot 2161119686 7717277 R22.42 Erectile dysfunction 860 292936 F52.21 Benign pro static hyperplasia 070741332 N40.0 Chest pain 84432984 R07. 9 Headache 50379901 R51.9 Gynecomastia 4912286 N62 [id number] STEPHANI JOHNSON[address] [address] 02/02/2024 10:48:13 02/02/2024 11:14:25 Chronic kidney disease stage 3 741108015 N18.30 Essential hypertension 70229325 I10 N18.9 R60.9 Type 2 makayla betes mellitus without complication 007551312 E11.9 E11.40 [id number] OLGA MARCUS [address] [address] 02/23/2024 08:58:06 02/23/2024 09:59:23 Type 2 diabetes mellitus without complication 960577825 E11.9 E11.40 Essential hypertension 90644965 I10 N18.9 R60.9 Anxiety 59191483 F41.9 F32.A Z73.3 Obstructiv e sleep apnea syndrome 88642963 G47.33 Body mass index 30+ - obesity 707767506 Z68.36 Digestive system finding 033175079 R19.8 Nonalcohol ic steatohepatitis 228233483 K75.81 Secondary polycythemia 85854308 D75.1 Disorder o f nasal sinus 4398333 J34.9 Nephrotic syndrome, diffuse membranous glomerulonephritis 734628377 N04.20 Nodule of subcutaneous tissue of left foot 0451880482 5033142 R22.42 Erectile dysfunction 860 085016 F52.21 Benign pro static hyperplasia 356537620 N40.0 Carcinoma of duodenum 25 4309733 C17.0 Pain of le ft shoulder joint 1621976686 3523679 M25.512 Cramp in lower limb 4499 10249 R25.2 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 6507177986 100 E11.621 Pain in ri ght hip joint 0250382045 49058 M25.224 [id number] GURJIT WILLIS MD [address] [address] 03/15/2024 14:48:33 03/15/2024 15:46:20 Carcinoma of duodenum 145854505 C17.0 [id number] ADA HAMM MD [address] [address] 03/24/2024 13:12:40 03/24/2024 14:17:10 Tachycardia 1560439 R00.0 Lethargy 126638823 R53.8 3 Low blood pressure 94045 003 I95.9 [id number] OLGA MARCUS APRN [address] [address] 04/23/2024 11:09:47 04/23/2024 12:19:30 Type 2 diabetes mellitus without complication 689724386 E11.9 E11.40 Essential hypertension 88893814 I10 N18.9 R60.9 Anxiety 25401887 F41.9 F32.A Z73.3 Obstructiv e sleep apnea syndrome 35943580 G47.33 Body mass index 30+ - obesity 072733493 Z68.36 Digestive system finding 296367811 R19.8 Nonalcohol ic steatohepatitis 761238019 K75.81 Secondary polycythemia 87543929 D75.1 Disorder o f nasal sinus 6012247 J34.9 Nephrotic syndrome, diffuse membranous glomerulonephritis 026966146 N04.20 Nodule of subcutaneous tissue of left foot 0563689200 7879246 R22.42 Benign pro static hyperplasia 000529830 N40.0 Carcinoma of duodenum 25 8097042 C17.0 Pain of le ft shoulder joint 8803981306 9041051 M25.512 Cramp in lower limb 4499 62970 R25.2 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 3113327444 100 E11.621 Pain in ri ght hip joint 9263089613 18995 M25.551 Prolonged QT interval 11 I45.81 Health Concerns Section Related Observation LastModified by Organization Detai ls LastModified Time None Recorded Concern Status LastModified by Organization Details LastModified Time None Recorded Advance Directives Directive None Recorded Payers Encounter Date Sequence Insurance Name Policy Number Policy Loo Covered Member ID Loo Member ID Guarantor Name 02/02/2024 1 R [id number] Charles Diallo'Lone [id number] Charles Nick 02/23/2024 1 UMR [id number] Charles Diallo'Lone [id number] Charles Nick 03/15/2024 1 UMR [id number] Charles Diallo'Lone [id number] Charles Nick 03/24/2024 1 UMR [id number] Charles Diallo'Lone [id number] Charles Cutler Olone 04/23/2024 1 R [id number] Charles Diallo'Lone [id number] Charles Nick Notes Date Note Type Note Provider Name and Address Organization Details Recorded Time 02/23/2024 text/html HPI Notes: Is he re for follow-up of: -Diabetes. Neuropathy. B12 deficiency. Hypomag. Not taking metformin (metformin most likely cause B12 and mag deficiency), bydureon (started in Oct 08), farxiga. Takes gabapentin for neuropathy. --update 02.23.24. Stopped bydureon, caused nausea. -HTN. CKD. Peripheral edema. Taking lasix, norvasc. Pedal edema has been improving. -Depression. Anxiety. Situational anxiety. Taking celexa. Working with counselor. -JOSE. Has CPAP. -Obesity. Working on lifestyle. Knows weight is going up. Eating poorly. Gets hungry easily. Not making good food choices. Frustrated that the scale is going up. Overeating. Last visit started on naltrexone. -- update. 02.23.24. Feels naltrexone has been helpful for the diet; has better restraint. -Bowel habits irregular. Nausea. Polyps. Taking magnesium, pepcid, zofran PRN. Has been encouraged to add metamucil into med regimen. -Fatty liver disease. CHAN per gastroenterology. -Erythyrocytosis. Microcytosis. Continue work up with hematology; they do suspect r/t JOSE, possible inflammation. Recommended to monitor routinely but does not require further evaluation. -Sinus congestion. Takes claritin. 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 Saw nephrology 01/05. Recommendation to FU with renal clinic yearly, to optimize diabetes and BP control, to work on weight loss. -Nodule of subq tissue of left foot. suspected dupytren's nodules. Not painful. -ED. Tadalafil recently increased to 20mg PRN. It does help but not greatly effective. Saw urology, was recommended to reduce his cialis to 20mg daily. Plans for trimix penile injections. -carcinoma of duodenum. EGD done spring, showed malignancy. Saw surgery/oncology 02/05, plan is for Whipple procedure to resect the duodenum. Recommended to stop trulicity prior to surgery. Surgery is next week. Trying to understand why he needs the surgery. OLGA MARCUS, SENIOR LABORATORY TECHNICIAN [address], [place], [address], [place] [facility]. 02/23/2024 12:08:46 03/15/2024 text/html HPI Notes: Sandy mortensen here for some hospital discharge follow-up. 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 He does have follow-up appointments them in the near future. More or less checking to make sure there is no complications or issues going on today. He states he feels very fatigued, try to eat more regular food but feels it going through . Not eating a lot but is eating more normal foods presently. He has had no fevers or chills, nausea but does have ondansetron which helps. No bowel issues. try make sure he drinks plenty of fluids, it appears he primarily water. They have been withholding his furosemide because there is been no fluid retention and they are concerned about possible intake. He is diabetic, blood sugars have been in range GURJIT WILLIS MD [address], [place], [address], [facility]. 03/17/2024 10:23:16 03/24/2024 text/html HPI Notes: Dax mustafa was scheduled for a nurse visit for labs but changed to office visit as I was asked to see him for hypotension. He had a whipple procedure done on March 02. Has generally been declining since then. Saw surgery in follow up on 03/20, were told fatigue and decreased energy were normal but he has continued to decline. His partner noted hypotension and tachycardia at home since his surgery. He is eating and drinking, urinating. He is holding his BP meds but has continued to take farxiga. Glucose levels running in the mid to high 100s. No fevers, no abdominal pain beyond expected for post op status. Some reflux symptoms but no chest pain. No SOB. No chills. Does seem cool even if it is hot out. Sleeping a lot. ADA HAMM MD [address], [place], [address], [facility]. 03/24/2024 16:04:59 04/23/2024 text/html HPI Notes: Is he re for follow-up of: -Diabetes. Neuropathy. B12 deficiency. Hypomag. Metformin caused B12 deficiency, mag deficiency and was stopped prior to whipple procedure. bydureon,started in Oct 08, not tolerated and stopped. Is taking farxiga and semglee insulin. Takes gabapentin for neuropathy. While in hospital he was meal time lispro, not doing currently. Feels neuropathy has improved. -HTN. CKD. Peripheral edema. Taking lasix, norvasc; was held during hospital stay and has not resumed. -Depression. Anxiety. Situational anxiety. Taking celexa. Working with counselor. -JOSE. Has CPAP; has new one on order. -Obesity. Working on lifestyle. Knows weight is going up. Eating poorly. Gets hungry easily. Not making good food choices. Frustrated that the scale is going up. Overeating. Last visit started on naltrexone. -- update. 02.23.24. Feels naltrexone has been helpful for the diet; has better restraint. -- update 04.23.24. diet is slowly improving, getting back to normal. feels naltrexone still helpful. -Bowel habits irregular. Nausea. Polyps. Taking magnesium, pepcid, zofran PRN. Has been encouraged to add metamucil into med regimen. Bowels are back to normal, daily, since surgery. -Fatty liver disease. CHAN per gastroenterology. -erythrocytosis. Microcytosis. Continue work up with hematology; they do suspect r/t JOSE, possible inflammation. Recommended to monitor routinely but does not require further evaluation. -Sinus congestion. Takes claritin. 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 Saw nephrology 01/05. Recommendation to FU with renal clinic yearly, to optimize diabetes and BP control, to work on weight loss. -Nodule of subq tissue of left foot. suspected dupytren's nodules. Not painful. -ED. Tadalafil recently increased to 20mg PRN. It does help but not greatly effective. Saw urology, was recommended to reduce his cialis to 20mg daily. Plans for trimix penile injections. Left shoulder pain. -- update 04.20.24. Referral to physical therapy. -- update 04.23.24 Feels that shoulder pain has improved with PT until this morning when fell out of bed and landed on shoulder, more discomfort with it. -carcinoma of duodenum. EGD done spring, showed malignancy. -- s/p whipple procedure. Developed an abscess and pancreatic leak; was admitted to hospital for treatment. Currently taking levaquin and flagyl; slow improvements. His provider on 04.21.24 talked with IR and plans to switch to BASIA bulb to gravity. They are monitoring his EKG routinely for prolonged QTc with his med profile. Has a FU every 2 weeks. Saw oncology 04.20.24, Plans for folfox and reduced dosing oxaliplatin for 6-8 cycles, monitoring his neuropathy closely; they do no feel radiation is indicated at this time. -- update 04.23.24. chemo will be twice a week for the next six months. Wants to work three days a week, four hour days. Will gladly update and edit [facility] paperwork according to how he feels. Mediport next week, then chemo late next week. Nervous/ anxious about starting chemo. OLGA MARCUS, SENIOR LABORATORY TECHNICIAN [address], [place], [address], [facility]. 04/23/2024 15:51:08
--- OUTSIDE RECORDS SUMMARY | 2024-05-21 01:05 | XMS_ITS | Continuity of Care Document ---
Author Organization ID - [facility] Address [address] [place] [address] Assessment Encounter Date Assessment Date Assessment LastModified by Organization Details LastModified Time 04/23/2024 04/23/2024 The total time devoted to today's encounter, including both the eika-wx-gree time with the patient and/or family/caregi charity and xsr-ouwi-pz-f elida time I personally spent is 40 minutes. Flu vaccine: current Td: current- due 2026 PCV20: PPSV23 in 2020 Shingrix: n/a RSV: n/a CRC screening: colo last 3..23, tubular adenoma. Follow-up in 1 Months. Call or RTO sooner if needs arise. Not available 04/23/2024 12:47:37 Plan of Treatment Reminders Order Date Submit Date Provider Last Modified By Organization Details Last Modified Time Details Appointments Medical Nutrition Therapy 60 2023 02:00P M Not available Not available Not available Office Visit 30 2023 03:00P M Not available Not available Not available Lab hemoglobi n A1C, fingersti ck 2023 08/09 024 [facility], [address] [place], [address], 04/23/2024 13:02:39 Referral None recorded. Procedures None recorded. Surgeries None recorded. Imaging None recorded. Medication Orders None recorded. Patient TargetsNo targets recorded. Patient Instructions Encounter Date Encounter Id Patient Instructions Last Modified By Organization Details Last Modified Time 04/23/2024 [id number] Increase semglee to 13 units daily for 7 days, then if sugar still greater than 120, increase to 16 units. Not available 04/23/2024 12:39:31 Reason for Referral Aerophysics Engineer Referral for Nodu le of subcutaneous tissue of left foot provider is wondering why this pt has not been contacted yet - resending Referring Physician: Olga Marcus [facility], Encounter Date: 09/23/2023 Sleep Medicine Referral for Obstructive sleep apnea syndrome Referring Physician: Olga Marcus [facility], Encounter Date: 11/07/2023 Urologist Referral for Erect ile dysfunction Referring Physician: Olga Marcus [facility], Encounter Date: 11/07/2023 EGD Referral for Digestive s ystem finding Referring Physician: Olga Marcus [facility], Encounter Date: 11/07/2023 Plastic Surgeon Referral for Gynecomastia Referring Physician: Olga Marcus [facility], Encounter Date: 12/05/2023 Endocrinology Referral for T ype 2 diabetes mellitus without complication Referring Physician: Olga Marcus [facility], Encounter Date: 02/23/2024 Vascular Surgeon Referral fo r Cramp in lower limb Referring Physician: Olga Marcus [facility], Encounter Date: 02/23/2024 Epic Cadence Analyst Referral f or Type 2 diabetes mellitus without complication referral for Freestyle Lina 3 Referring Physician: Olga Marcus [facility], Encounter Date: 04/02/2024 Physical Therapist Referral for Pain of left shoulder joint Referring Physician: Olga Marcus [facility], Encounter Date: 04/20/2024 Results Created Date Observation Date Name Description Value Unit Range Abnormal Flag Note LastModifiedBy Organization Detail LastModifiedTime 04/23/20 24 04/23/2024 hemog lobin A1C, finge rstic k hemoglobin A1C 8.0 % <5.7 Not Available [address], [address], 04/23/2024 11:48:33 03/24/20 24 03/24/2024 CT imagi ng repor t Patien t Name: Charles Nick Unit #: [id number] Loc: ER Orderi ng Provid er: Rayo Ramos M.D. Accoun t #: [id number] Status : REG ER Primar y [...] que 350con trast volume :100 mL COMPAR JO: CT CT CHEST PE ABD PELVIS W [...] . Bones: Within normal limits . IMPRES DEWAYNE: 1. No eviden ce pulmon jonny emboli [...] REPOSI TORY: All CT scans at [facility] are submit dotty to the [facility] al Radiol ogy Data Regist ry (NRDR) Dose Index Regist ry (DIR) with the [place] meg ferro of Radiol ogy (ACR). RADIAT ION OPTIMI ZATION : All CT scans at this [facility] use at least one of these dose optimi zation techni ques: automa dotty exposu re contro l; mA and/or kV adjust ment per patien t size (inclu shaw target ed exams where dose is matche d to clinic al indica tion); or iterat kong recons tructi on 028: Total DLP = 0.00 mGy-cm Ordere d By: Rayo Ramos M.D. CC: ------ ------ ------ ------ ------ ------ ------ ------ ------ ------ ------ ------ ---- Dictat ed By: Juan Delacruz M.D. 07/1706 Transc ribed By: Juan Delacruz 1706 This [...] at the addres s above. Thank- you. [facility] [address], [place], [address] 03/25/2024 04:38:41 03/26/20 24 03/25/2024 elect gerardo olvera am EKG JALYN Holland NAME: Charles Nick UNIT #: [id number] ORDERI NG PROVID ER: Kenny Garcia DO ACCOUN T #: [id number] PRIMAR Y CARE PROVID ER: Alexa CHAMBERLAIN APRN DATE/T JOHN OF SERVIC E: 150 : 1975 PERFOR HARPER LOCATI ON: ER ------ ------ --- APPROV ED REPORT ------ ------ -- Exam: Restin g ECG Reason for Exam: Hypote nsion Jalyn holland Locati on: E HR:112 bpm ECG Measur ements Heart Rate 112 AXIS ME 152 P 54 QRSd 103 QRS 70 QT 371 T -52 QTc 507 Conclu dewayne Sinus tachyc ardia. ..rate > 99 Nonspe [...] ---- ------ - E-Sign Date: E-Sign Time: 000 ------ ------ --- ADDEND UM APPROV ED REPORT ------ ------ -- Exam: Restin g ECG Reason for Exam: Hypote nsion Patien t Locati on: E HR:112 bpm ECG Measur ements Heart Rate 112 AXIS ME 152 P 54 QRSd 103 QRS 70 QT 371 T -52 QTc 507 Conclu dewayne Sinus tachyc ardia. ..rate > 99 Nonspe [...] ly signed by: [id number] Cosign ed by: [email or web address] [facility] [address] [place], [address] 03/26/2024 08:57:17 Result Notes None recorded. Problems Name Problem SNOMED Code Status Onset Date Resolution Date Notes Provider Name and Address Organization Details Recorded Time Jasmyne sanchez hyperten dewayne 54262151 Active 2006 Alie dorsey ID - [facility]. 4 13:29:59 Nephroti c syndrome 81487540 Completed 200603/03/2007 Not Available [facility] 3 04:42:43 Chronic kidney disease stage 3 045523612 Active 2010 Alie dorsey [facility]. 4 13:29:40 Obstruct kong sleep apnea syndrome 62510890 Active 2013 [email or web address] 4 13:30:42 Anxiety 63906716 Active 2014 [facility] 4 13:29:15 Type 2 diabetes mellitus without complica tion 099322782 Active 2015 [facility] 4 13:30:59 Obesity 885909070 Active 2015 [facility] 4 13:30:35 Edema 517272412 Active 2015 [facility] 4 13:29:50 Allergy to food 429065509 Active 2016 [facility] 4 13:29:10 Adult health examinat ion Active 2018 [facility] 4 13:29:06 Erectile dysfunct ion 827466372 Active 2018 [facility] 4 13:29:54 Neuropat hy due to type 2 diabetes mellitus 66338631852 9106 Active 2020 [facility] 4 13:30:25 Screenin g for malignan t neoplasm of colon Active 2020 [facility] 4 13:30:50 Digestiv e system finding 130007391 Active 2021 [facility] 4 13:29:44 Vitamin B deficien cy 74015675 Active 2021 [facility] 4 13:31:03 Pre-surg mirta evaluati on Completed 202106/01/2022 Problem Code: Z01.818; Problem Code Type: ICD-10; Not Available [facility] 3 04:42:45 Bilatera l hearing loss 66719038 Active 2021 [facility] 4 13:29:19 Venereal disease screenin g Completed 202108/24/2022 Problem Code: Z11.3; Problem Code Type: ICD-10; Not Available [facility] 3 04:42:45 Hypomagn esemia 176689437 Active 2022 [facility], [facility] 4 13:30:11 Secondar y polycyth emia 99760235 Active 2022 [facility] 4 13:30:54 Kidney stone 91171395 Active 2022 [facility] 4 13:30:16 History of polyp of colon 637057603 Active 2022 [facility] 4 13:30:07 Disorder of nasal sinus 6011620 Active 2022 OLGA MARCUS, TEST FIXTURE ASSEMBLER [address], [place], [address] , [facility] 4 08:08:16 Nonalcoh olic steatohe patitis 267635687 Active 2022 [facility] 4 13:30:32 Body mass index 30+ - obesity 154429877 Active 2022 [facility] 4 13:29:23 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 mellitus 040405702 Active 2022 [facility] 4 13:30:46 Nephroti c syndrome , diffuse membrano us glomerul onephrit is 286122056 Active 2022 [facility] 4 13:30:20 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 06938964230 00 Active 2022 Alie dorsey [facility] 4 13:30:03 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 70625922355 00 Completed 202004/10/2021 Problem Code: E11.621; Problem Code Type: ICD-10; Alie dorsey [facility] 4 13:30:03 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 16905551784 00 Completed 202007/25/2022 Problem Code: E11.621; Problem Code Type: ICD-10; [facility] 4 13:30:03 Hypergly cemia due to type 2 diabetes mellitus 98497725585 9109 Completed 201608/15/2017 Problem Code: E11.65; Problem Code Type: ICD-10; Not Available [facility] 3 04:42:47 Phimosis 934939181 Completed 201704/29/2022 Problem Code: N47.1; Problem Code Type: ICD-10; Not Available [facility] 3 04:42:47 Snoring 50731816 Completed 201303/01/2016 Not Available [facility] 3 04:42:48 Imaging of abdomen abnormal 938421389 Completed 202212/20/2022 Problem Code: R93.5; Problem Code Type: ICD-10; Not Available [facility] 3 04:42:48 Adult health examinat ion Completed 201403/01/2016 Problem Code: Z00.00; Problem Code Type: ICD-10; [facility] 4 13:29:06 Obesity 735267045 Completed 200606/11/2023 [facility] 4 13:30:35 Fatigue 59198187 Completed 201303/01/2016 Not Available [facility] 3 04:42:48 Acute upper respirat ory infectio n 09827665 Completed 202004/29/2022 Problem Code: J06.9; Problem Code Type: ICD-10; Not Available [facility] 3 04:42:49 Nausea 355240600 Completed 202212/20/2022 Problem Code: R11.0; Problem Code Type: ICD-10; Not Available [facility] 3 04:42:49 Type 2 diabetes mellitus without complica tion 660186092 Completed 202201/10/2023 Problem Code: E11.9; Problem Code Type: ICD-10; Alie dorsey [facility] 4 13:30:59 Dyssomni a 17847724 Completed 201303/01/2016 Problem Code: 780.59; Problem Code Type: ICD-9; Not Available [facility] 3 04:42:49 Acute bronchit is 22809905 Completed 201708/09/2019 Problem Code: J20.9; Problem Code Type: ICD-10; Not Available [facility] 3 04:42:49 Nausea and vomiting 53760228 Completed 202107/25/2022 Problem Code: R11.2; Problem Code Type: ICD-10; Not Available [facility] 3 04:42:50 Sleep apnea 22036449 Completed 201306/11/2023 Problem Code: 780.57; Problem Code Type: ICD-9; Not Available [facility] 3 04:42:50 Disturba nce of consciou sness 5832509 Completed 201303/01/2016 Problem Code: 780.09; Problem Code Type: ICD-9; Not Available [facility] 3 04:42:50 Acute sinusiti s 25987997 Completed 202004/10/2021 Problem Code: J01.90; Problem Code Type: ICD-10; Not Available [facility] 3 04:42:50 Jesus Alberto brown 49794755 Completed 201608/15/2017 Problem Code: N48.1; Problem Code Type: ICD-10; Not Available [facility] 3 04:42:51 Sleep disorder 20756348 Completed 201303/01/2016 Problem Code: 780.50; Problem Code Type: ICD-9; Not Available [facility] 3 04:42:51 Nodule of subcutan eous tissue of left foot 31368805187 188247 Active 2023 OLGA MARCUS APRN [address], [place], [address] , [facility]. 4 08:13:06 Benign prostati c hyperpla mercy 359329460 Active 2023 Alie Crowell [facility], [facility]. 4 13:31:06 Headache 07082665 Active 2023 OLGA MARCUS APRN [address], [place], [address] , [facility], [facility] 4 08:57:45 Gynecoma stia 9097415 Active 2023 Alie dorsey, [facility]. 4 13:31:13 Ulcer of left foot 649137805 Active 2023 ARNALDO GOMEZ CMA null, [facility]. 4 09:47:50 Fibromat osis of plantar fascia of left foot 50795741180 831431 Active 2023 Alie dorsey, [facility]. 4 13:31:10 Carcinom a of duodenum 285116029 Active 2023 EGD 01/06, biopsy at that time OLGA MARCUS APRN [address], [place], [address] , [facility]. 4 09:30:26 Pain of left shoulder joint 52044210780 174539 Active 2023 OLGA MARCUS APRN [address], [facility] [address] , [facility] 4 09:14:45 Cramp in lower limb 005185875 Active 2023 OLGA MARCUS APRN [address], [facility] [address] , [facility] 4 09:15:29 Pain in right hip joint 00374155253 9102 Active 2023 OLGA MARCUS APRN [address], [facility] [address] , [facility] 4 09:19:09 Prolonge d QT interval 349327469 Active 2023 OLGA MARCUS APRN [address], [facility] [address] , [facility] 4 09:53:55 Notes:*Problem Name: Duodena l polyp *Problem Status: active *Comments: *Problem Code: K31.7 *Problem Code Type: ICD-10 *Note Date: 2022 Problem Notes None recorded. Procedures Surgical History Date Name Laterality Status Provider Name and Address Organization Details Recorded Time 4 IV insert completed Kinsey Oliveira RN [facility], [facility] 03/24/2024 15:58:08 4 endoscopy completed ARNALDO GOMEZ CMA null, [facility] 01/02/2024 15:34:11 Imaging Results None recorded. Procedure Notes None recorded. Medical Equipment None Reported. Allergies Allergen ID Allergen Name Allergen Category Reaction Reaction Severity Criticality Documentation Date Start Date Code Code System Note Provider Name and Address Organization Details Recorded Time 06777 Medicinal product containin g penicilli n and acting as antibacte rial agent (product) medicatio n other mild Not available 11/29/20232006 35178 05 SNOMED Swell ing of throa t Loren Carina null, [facility] 4 13:58:03 Medications Name Sig Start Date Stop Date Status Note LastModified by Organization Details LastModified Time Prescript ion - Prior Authoriza tion Request active Not Available Not Available Not Available furosemid e 40 mg tablet TAKE 1 TABLET BY MOUTH TWICE A DAY 03/11 completed Changed dosing per [facility] 03/08/24 Not Available Not Available Not Available acetamino phen 325 mg tablet Take 2 tablets every 8 hours by oral route as needed. active Per [facility] d/c summary 04/01/24 Not Available Not Available [...] HCl 150 mg capsule active Stopped per [facility] d/c summary 04/01/24 Not Available Not Available [...] MOUTH EVERY DAY NEEDED active Stopped per [facility] d/c summary 04/01/24 Not Available Not Available [...] every day by oral route. active Per [facility] d/c summary continue 04/01/24 Not Available Not [...] TABLET BY MOUTH EVERY DAY NEEDED active [employer] [facility] Not Available Not Available Not Available BD [...] 2016 active Not Available Not Available Not Avai lable Prodigy Autocode Meter kit Check glucose daily 07/15 completed E11.9 Not Available Not Available Not Available OneTouch Delica Lancets 30 gauge Test once daily 2015 active E11.9 Not Available Not Available Not Avai lable MediHoney (honey) 80 % topical gel Apply a small amount to affected area once a day 2022 active Not Available Not Available Not Avai lable Creon 36,000 unit-114, 000 unit-180, 000 unit capsule,d elayed release TAKE 2 CAPSULES BY MOUTH DAILY WITH MEALS , AND 1 CAPSULE WITH SNACKS active Not Available Not Available No t Available Farxiga 10 mg tablet TAKE ONE TABLET BY MOUTH EVERY DAY 04/23 completed Stopped per [facility] d/c summary 04/01/24 Not Available Not Available [...] 2nd Gen Pen Needle 32 gauge x 32 USE ONE PEN NEEDLE PER INJECTIO N TWICE A DAY active Not Available Not Available No t Available OneTouch Ultra2 Meter test once daily 2015 active [...] 120, increase to 16 units 2023 active Per [facility] pt taking 19 units every morning Not Available Not Available Not Available Semglee (insulin glargine- yfgn) 100 unit/mL subcutane ous solution INJECT 10 UNITS SUBCUTAN EOUSLY DAILY 05/20 completed Not Available Not Available Not Available FreeStyle Lina 3 Sensor device USE DIRECTED active Not Available Not Available No t Available FreeStyle Lina 3 [place] USE DIRECTED active Not Available Not Available No t Available Vitals Date Recorded Body height Body mass index (BMI) Body weight Oxygen saturation Oxygen saturation in Arterial blood by Pulse oximetry Heart rate Body temperature Systolic blood pressure Diastolic blood pressure Provider Name and Address Organization Details Last Updated DateTime 186.69 cm 34.2 kg/m2 979076. 79 g 97 % 97 % 81 /min 97.89 [degF] 128 mm[Hg] 94 mm[Hg] ARNALDO GOMEZ CMA [facility] 11:42:08 Date Recorded Systolic blood pressure Diastolic blood pressure Provider Name and Address Organization Details Last Updated DateTime 04/23/2024 122 mm[Hg] 90 mm[Hg] OLGA MARCUS, TEST FIXTURE ASSEMBLER [address], [place], [address], [facility] 04/23/2024 12:17:35 Social History Question Answer Notes LastModified by Organizat ion Details LastModified Time Tobacco Smoking Status Never Smoker ARNALDO GOMEZ CMA null, [facility] 12/05/2023 08:46:50 What Was The [...] preservative free, adsorbed 04/22/2017 completed Not Available [facility] 07/25/2023 06:32:54 Tdap 02/27/2007 completed Not Available [facility] 06:32:54 Influenza, split virus, quadrivalent, PF 09/21/2020 completed Not Available [facility] 07/25/2023 06:32:54 Influenza, split virus, quadrivalent, PF 06/19/2021 completed Not Available [facility] 07/25/2023 06:32:54 Influenza, split virus, quadrivalent, PF 08/02/2019 completed Not Available [facility] 07/25/2023 06:32:54 COVID-19 vaccine, vector-nr, rS-Ad26, PF, 0.5 mL 01/19/2021 completed Not Available [facility] 07/25/2023 06:32:54 pneumococcal polysaccharide PPV23 09/21/2020 completed Not Available [facility] 2022 06:32:54 influenza, unspecified formulation 07/05/2016 completed Not Available [facility] 07/25/2023 06:32:54 influenza, unspecified formulation 07/16/2017 completed Not Available [facility] 07/25/2023 06:32:54 Influenza, split virus, quadrivalent, PF 06/17/2023 completed Not Available [facility] 09/26/2023 05:33:26 Past Encounters Encounter ID Performer Location Encounter Start Date Encounter Closed Date Diagnosis/Indication Diagnosis SNOMED-CT Code Diagnosis ICD10 Code [id number] ADA HAMM MD [address] [address] 03/24/2024 13:12:40 03/24/2024 14:17:10 [facility] 9894200 R00.0 Lethargy 060985599 R53.8 3 Low blood pressure 79054 003 I95.9 [id number] OLGA MARCUS APRN [address] [address] 04/23/2024 11:09:47 04/23/2024 12:19:30 Type 2 diabetes mellitus without complication 914637343 E11.9 E11.40 Essential hypertension 02381202 I10 N18.9 R60.9 Anxiety 87234480 F41.9 F32.A Z73.3 Obstructiv e sleep apnea syndrome 25700715 G47.33 Body mass index 30+ - obesity 738334052 Z68.36 Digestive system finding 095425875 R19.8 Nonalcohol ic steatohepatitis 519890153 K75.81 Secondary polycythemia 12498716 D75.1 Disorder o f nasal sinus 1185251 J34.9 Nephrotic syndrome, diffuse membranous glomerulonephritis 196252669 N04.20 Nodule of subcutaneous tissue of left foot 8068857008 0561452 R22.42 Benign pro static hyperplasia 073619077 N40.0 Carcinoma of duodenum 25 6897515 C17.0 Pain of le ft shoulder joint 2088054107 8874324 M25.512 Cramp in lower limb 4499 01257 R25.2 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 7033900823 100 E11.621 Pain in ri ght hip joint 2234048520 02106 M25.551 Prolonged QT interval 11 9599211 I45.81 Health Concerns Section Related Observation LastModified by Organization Detai ls LastModified Time None Recorded Concern Status LastModified by Organization Details LastModified Time None Recorded Payers Encounter Date Sequence Insurance Name Policy Number Policy Loo Covered Member ID Loo Member ID Guarantor Name 04/23/2024 1 [facility] [id number] Charles Hernandez [id number] Charles Nick Notes Date Note Type Note Provider Name and Address Organization Details Recorded Time 04/23/2024 text/html HPI Notes: Is he re [...] hour days. Will gladly update and edit [facility] paperwork according to how he feels. Mediport next week, then chemo late next week. Nervous/ anxious about starting chemo. OLGA MARCUS, TEST FIXTURE ASSEMBLER [address], [place], [address], [place] - [facility]. 04/23/2024 15:51:08
--- OUTSIDE RECORDS SUMMARY | 2024-05-21 01:05 | XMS_ITS | Continuity of Care Document ---
Author Organization [place] - [facility] Address [address] [place] [address] Assessment Encounter Date Assessment Date Assessment LastModified by Organization Details LastModified Time 03/24/2024 03/24/2024 Charles is about 3 weeks [...] an RN. eoleson Not available 03/24/2024 16:03:45 Plan of Treatment Reminders Order Date Submit Date Provider Last Modified By Organization Details Last Modified Time Details Appointments Medical Nutrition Therapy 60 2023 02:00P M Not available Not available Not available Office Visit 30 2023 03:00P M Not available Not available Not available Lab hemoglobi n (Hb), fingersti ck, blood 2023 [facility], [address] [place] [address], [address], 03/24/2024 16:03:13 Referral None recorded. Procedures IV infusion, hydration , 31-60 min (PROC) 07/10/ 2024 07/10/2 024 eoleson Not available 03/24/2024 16:03:11 Surgeries None recorded. Imaging None recorded. Medication Orders None recorded. Patient TargetsNo targets recorded. Patient InstructionsNo instructions recorded. Reason for Referral [employer] Repairer Referral for Nodu le of subcutaneous tissue of left foot provider is wondering why this pt has not been contacted yet - resending Referring Physician: Olga Marcus [facility], Encounter Date: 09/23/2023 Sleep Medicine Referral for Obstructive sleep apnea syndrome Referring Physician: Olga Marcus [facility], Encounter Date: 11/07/2023 Urologist Referral for Erect ile dysfunction Referring Physician: Olga Marcus [facility], Encounter Date: 11/07/2023 EGD Referral for Digestive s ystem finding Referring Physician: Olga Marcus [facility], Encounter Date: 11/07/2023 Plastic Surgeon Referral for Gynecomastia Referring Physician: Olga Marcus [facility], Encounter Date: 12/05/2023 Endocrinology Referral for T ype 2 diabetes mellitus without complication Referring Physician: Olga Marcus [facility], Encounter Date: 02/23/2024 Vascular Surgeon Referral fo r Cramp in lower limb Referring Physician: Olga Marcus [facility], Encounter Date: 02/23/2024 Vp Purchasing Referral f or Type 2 diabetes mellitus without complication referral for Freestyle Lina 3 Referring Physician: Olga Marcus [facility], Encounter Date: 04/02/2024 Physical Therapist Referral for Pain of left shoulder joint Referring Physician: Olga Marcus [facility], Encounter Date: 04/20/2024 Results Created Date Observation Date Name Description Value Unit Range Abnormal Flag Note LastModifiedBy Organization Detail LastModifiedTime 03/24/20 24 03/24/2024 hemog lobin (Hb), finge rstic k, blood HGB 15 g/dL Not Available [address], [address], 03/24/2024 13:20:25 02/26/20 24 02/26/2024 CT imagi ng repor t Patien t Name: Charles Nick Unit #: [id number] Loc: DI Orderi ng Provid er: Quang Hernandez t #: [id number] Status : REG CLI Primar y [...] tomogr aphy images with valenzuela l and sagitt al reform atted images were create d and review ed. CONTRA ST MATERI AL: Intrav enous: Omnipa que [address] volume :100 mL Oral: Yes COMPAR JO: CT CT CHEST PE ABD [...] examin ation second jonny to poor disten dewayne of the bowel at this region . [...] limits for the patien t's age. IMPRES DEWAYNE: 1. The patien t's known mass in the duoden um was not visual ized on the curren t examin ation due to incomp lete disten dewayne of the bowel at this region . [...] indica tion); or iterat kong recons tructi on. 002: Total DLP = 0.00 mGy-cm Ordere d By: Quang Hernandez CC[facility] ------ ------ ------ ------ ------ ------ ------ ------ ------ ------ ------ ------ ---- Dictat ed By: Juan Delacruz M.D. [id number] Transc ribed By: Juan Delacruz 110 This is privil eged, confid ential inform ation intend ed only for the provid er named. Any use or distri bution by any person other than this provid er is strict ly prohib ited. If you receiv e this report in error, please notify us immedi ately at and return the origin al report to us at the addres s above. Thank- you. [facility] [address], [place], [address] 02/26/2024 13:16:53 03/24/20 24 03/24/2024 CT imagi ng barrett holland Name: Charles Nick Unit #: [id number] Loc: ER Orderi ng Provid er: Kevin Ramos M.D. Accoun t #: [id number] Status : REG ER Primar y Care Provid er: Jaye Chamberlain gavin Date of Exam: 07/08 Sex: M : [...] indica tion); or iterat kong recons tructi on. 028: Total DLP = 0.00 mGy-cm Ordere d By: Kevin Ramos M.D. CC: ------ ------ ------ ------ [...] at the addres s above. Thank- you. [facility] [address] [place], [address] 03/25/2024 04:38:41 03/26/20 24 03/25/2024 gregory olvera am EKG PATIEN T NAME: Charles Nick UNIT #: [id number] ORDERI NG PROVID ER: Kenny Garcia DO ACCOUN T #: [id number] PRIMAR Y CARE PROVID ER: Alexa CHAMBERLAIN APRN DATE/T JOHN OF SERVIC E: 1507 : 1975 PERFOR HARPER LOCATI ON: ER ------ ------ --- APPROV ED REPORT ------ ------ -- Exam: Restin g ECG Reason for Exam: Hypote nsion Patien t Locati on: E HR:112 bpm ECG Measur ements Heart Rate 112 AXIS IA 152 P 54 QRSd 103 QRS 70 [...] ---- ------ - E-Sign Date: E-Sign Time: 0008 ------ ------ --- ADDEND UM APPROV ED REPORT ------ ------ -- Exam: Restin g ECG Reason for Exam: Hypote charmaine holland Locati on: E HR:112 bpm ECG Measur ements Heart Rate 112 AXIS IA 152 P 54 QRSd 103 QRS 70 QT 371 T -52 QTc 507 Conclu dewayne Sinus tachyc ardia. ..rate > 99 Nonspe cific T abnorm alitie s, inferi or leads. ..T <-0.10 mV, II III aVF Prolon ged QT interv al...Q Tc >500mS I have review ed and interp reted ECG and agree with kassidy storm interp retati on. I have review ed and I agree with the emerge ncy room cecily choi'kevin ECG interp retati on. Electr onical ly signed by: [id number] Cosign ed by: [address] , [place], [address] 03/26/2024 08:57:17 Result Notes None recorded. Problems Name Problem SNOMED Code Status Onset Date Resolution Date Notes Provider Name and Address Organization Details Recorded Time Jasmyne sanchez hyperten dewayne 27964966 Active 2006 Alieher Crowell [facility]. 4 13:29:59 Nephroti c syndrome 51610161 Completed 200603/03/2007 Not Available [facility] 3 04:42:43 Chronic kidney disease stage 3 757555357 Active 2010 Alie yasmeen [facility] 4 13:29:40 Obstruct kong sleep apnea syndrome 07912387 [facility] 4 13:30:42 Anxiety 79711208 Active 2014 [facility] 4 13:29:15 Type 2 diabetes mellitus without complica tion 200902970 [facility] 4 13:30:59 Obesity 524087903 Active 2015 [facility] 4 13:30:35 Edema 231135235 Active 2015 [facility] 4 13:29:50 Allergy to food 544140902 [facility] 4 13:29:10 Adult health examinat ion Active 2018 [facility] 4 13:29:06 Erectile dysfunct ion 358152108 Active [facility]. 4 13:29:54 Neuropat hy due to type 2 diabetes mellitus 40363607912 9106 Active 2020 Alie Mervat [facility] 4 13:30:25 Screenin g for malignan t neoplasm of colon Active 2020 [facility] 4 13:30:50 Digestiv e system finding 236163212 Active 2021 [facility] 4 13:29:44 Vitamin B deficien cy 08369507 Active 2021 [facility] 4 13:31:03 Pre-surg mirta evaluati on Completed 202106/01/2022 Problem Code: Z01.818; Problem Code Type: ICD-10; Not Available [facility] 3 04:42:45 Bilatera l hearing loss 41185266 Active 2021 [facility] 4 13:29:19 Venereal disease screenin g Completed 202108/24/2022 Problem Code: Z11.3; Problem Code Type: ICD-10; Not Available [facility] 3 04:42:45 Hypomagn esemia 765882509 Active 2022 [facility] 4 13:30:11 Secondar y polycyth emia 82783683 Active 2022 [facility] 4 13:30:54 Kidney stone 56933139 Active 2022 [facility] 4 13:30:16 History of polyp of colon 221334203 Active 2022 [facility] 4 13:30:07 Disorder of nasal sinus 1644680 Active 2022 OLGA MARCUS, DIRECTOR OF DIRECT MARKETING [address], [place], [address] , [facility] 4 08:08:16 Nonalcoh olic steatohe patitis 808278291 Active 2022 Alieher Crowell [facility] 4 13:30:32 Body mass index 30+ - obesity 960889418 Active 2022 Alieher Crowell [facility] 4 13:29:23 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 mellitus 534078208 Active 2022 Alie Mervat [facility] 4 13:30:46 Nephroti c syndrome , diffuse membrano us glomerul onephrit is 995430204 Active 2022 Alieher Crowell [facility] 4 13:30:20 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 06690356898 00 Active 2022 Alieher Crowell [facility] 4 13:30:03 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 02223617764 00 Completed 202004/10/2021 Problem Code: E11.621; Problem Code Type: ICD-10; [facility] 4 13:30[facility]03 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 49406545630 00 Completed 202007/25/2022 Problem Code: E11.621; Problem Code Type: ICD-10; [facility] 4 13:30:03 Hypergly cemia due to type 2 diabetes mellitus 80167885394 9109 Completed 201608/15/2017 Problem Code: E11.65; Problem Code Type: ICD-10; Not Available [facility] 3 04:42:47 Phimosis 653366635 Completed 201704/29/2022 Problem Code: N47.1; Problem Code Type: ICD-10; Not Available [facility] 3 04:42:47 Snoring 63045394 Completed 201303/01/2016 Not Available [facility] 3 04:42:48 Imaging of abdomen abnormal 798335183 Completed 202212/20/2022 Problem Code: R93.5; Problem Code Type: ICD-10; Not Available [facility] 3 04:42:48 Adult health examinat ion Completed 201403/01/2016 Problem Code: Z00.00; Problem Code Type: ICD-10; Alie dorsey [facility] 4 13:29:06 Obesity 644658191 Completed 200606/11/2023 [facility] 4 13:30:35 Fatigue 44566481 Completed 201303/01/2016 Not Available [facility] 3 04:42:48 Acute upper respirat ory infectio n 89409909 Completed 202004/29/2022 Problem Code: J06.9; Problem Code Type: ICD-10; Not Available [facility] 3 04:42:49 Nausea 365025427 Completed 202212/20/2022 Problem Code: R11.0; Problem Code Type: ICD-10; Not Available [facility] 3 04:42:49 Type 2 diabetes mellitus without complica tion 794490447 Completed 202201/10/2023 Problem Code: E11.9; Problem Code Type: ICD-10; [facility] 4 13:30:59 Dyssomni a 22488206 Completed 201303/01/2016 Problem Code: 780.59; Problem Code Type: ICD-9; Not Available [facility] 3 04:42:49 Acute bronchit is 85351335 Completed 201708/09/2019 Problem Code: J20.9; Problem Code Type: ICD-10; Not Available [facility] 3 04:42:49 Nausea and vomiting 55512705 Completed 202107/25/2022 Problem Code: R11.2; Problem Code Type: ICD-10; Not Available [facility] 3 04:42:50 Sleep apnea 88818048 Completed 201306/11/2023 Problem Code: 780.57; Problem Code Type: ICD-9; Not Available [facility] 3 04:42:50 Disturba nce of consciou sness 2037161 Completed 201303/01/2016 Problem Code: 780.09; Problem Code Type: ICD-9; Not Available [facility] 3 04:42:50 Acute sinusiti s 81662122 Completed 202004/10/2021 Problem Code: J01.90; Problem Code Type: ICD-10; Not Available [facility] 3 04:42:50 Balaniti s 27523161 Completed 201608/15/2017 Problem Code: N48.1; Problem Code Type: ICD-10; Not Available [facility] 3 04:42:51 Sleep disorder 56762975 Completed 201303/01/2016 Problem Code: 780.50; Problem Code Type: ICD-9; Not Available [facility] 3 04:42:51 Nodule of subcutan eous tissue of left foot 10777996258 666397 Active 2023 OLGA MARCUS APRN [address], [place], [address] , [facility]. 4 08:13:06 Benign prostati c hyperpla mercy 975666083 Active 2023 Alie dorsey, [facility]. 4 13:31:06 Headache 72566465 Active 2023 OLGA MARCUS APRN [address], [place], [address] , [facility]. 4 08:57:45 Gynecoma stia 9667787 Active 2023 Alie dorsey, [facility] 4 13:31:13 Ulcer of left foot 355670694 Active 2023 ARNALDORoslyn GOMEZ CMA null, [facility] 4 09:47:50 Fibromat osis of plantar fascia of left foot 52338096359 770919 Active 2023 Alie Crowell null, [facility] 4 13:31:10 Carcinom a of duodenum 754845458 Active 2023 EGD 01/06, biopsy at that time OLGA MARCUS APRN [address], [place], [address] , [facility] 4 09:30:26 Pain of left shoulder joint 42168271832 496862 Active 2023 OLGA MARCUS APRN [address], [facility] [address] , [facility] 4 09:14:45 Cramp in lower limb 983964640 Active 2023 OLGA MARCUS APRN [address], [facility] [address] , [facility] 4 09:15:29 Pain in right hip joint 27584336353 9102 Active 2023 OLGA MARCUS APRN [address], [place], [address] , [facility] 4 09:19:09 Prolonge d QT interval 649961716 Active 2023 OLGA MARCUS APRN [address], [place], [address] , [facility] 4 09:53:55 Notes:*Problem Name: Duodena l polyp *Problem Status: active *Comments: *Problem Code: K31.7 *Problem Code Type: ICD-10 *Note Date: 2022 Problem Notes None recorded. Procedures Surgical History Date Name Laterality Status Provider Name and Address Organization Details Recorded Time 4 IV insert completed Kinsey Oliveira RN [facility], [facility] 03/24/2024 15:58:08 endoscopy completed ARNALDO GOMEZ CMA [facility], [facility] 01/02/2024 15:34:11 Imaging Results None recorded. Procedure Notes None recorded. Medical Equipment None Reported. Allergies Allergen ID Allergen Name Allergen Category Reaction Reaction Severity Criticality Documentation Date Start Date Code Code System Note Provider Name and Address Organization Details Recorded Time 16244 Medicinal product containin g penicilli n and acting as antibacte rial agent (product) medicatio n other mild Not available 11/29/20232006 11797 05 SNOMED Swell ing of throa t Loren Lim [facility], [facility] 4 13:58:03 Medications Name Sig Start Date Stop Date Status Note LastModified by Organization Details LastModified Time Prescript ion - Prior Authoriza tion Request active Not Available Not Available Not Available furosemid e 40 mg tablet TAKE 1 TABLET BY MOUTH TWICE A DAY 03/11 completed Changed dosing per [facility] 03/08/24 Not Available Not Available Not Available acetamino phen 325 mg tablet Take 2 tablets every 8 hours by oral route as needed. active Per [facility] d/c summary 04/01/24 Not Available Not Available [...] HCl 150 mg capsule active Stopped per [facility] d/c summary 04/01/24 Not Available Not Available [...] MOUTH EVERY DAY NEEDED active Stopped per [facility] d/c summary 04/01/24 Not Available Not Available [...] strips Test once daily 2015 active for [employer] ultra 2 E11.9 Not Available Not Available [...] every day by oral route. active Per [facility] d/c summary continue 04/01/24 Not Available Not [...] TABLET BY MOUTH EVERY DAY NEEDED active Emely brown Mishasandro Not Available Not Available Not Available BD [...] E11.9 Not Available Not Available Not Renea Uriostegui (honey) 80 % topical gel Apply a [...] MOUTH EVERY DAY 04/23 completed Stopped per [facility] d/c summary 04/01/24 Not Available Not Available [...] 2nd Gen Pen Needle 32 gauge x USE ONE PEN NEEDLE PER INJECTIO N [...] Available No t Available FreeStyle Lina 3 [place] USE DIRECTED active Not Available Not Available No t Available Vitals Date Recorded Body height Heart rate Heart [...] mm[Hg] 84 mm[Hg] 62 mm[Hg] STEPHANI JOHNSON CMA [facility] 13:16:26 Social History Question Answer Notes LastModified by Organizat ion Details LastModified Time Tobacco Smoking Status Never Smoker BRI NELSON, [facility] 12/05/2023 08:46:50 What Was The Date Of [...] preservative free, adsorbed 04/22/2017 completed Not Available [facility] 07/25/2023 06:32:54 Tdap 02/27/2007 completed Not Available [facility] 06:32:54 Influenza, split virus, quadrivalent, PF 09/21/2020 completed Not Available [facility] 07/25/2023 06:32:54 Influenza, split virus, quadrivalent, PF 06/19/2021 completed Not Available [facility] 07/25/2023 06:32:54 Influenza, split virus, quadrivalent, PF 08/02/2019 completed Not Available [facility] 07/25/2023 06:32:54 COVID-19 vaccine, vector-nr, rS-Ad26, PF, 0.5 mL 01/19/2021 completed Not Available [facility] 07/25/2023 06:32:54 pneumococcal polysaccharide PPV23 09/21/2020 completed Not Available [facility] 2022 06:32:54 influenza, unspecified formulation 07/05/2016 completed Not Available [facility] 07/25/2023 06:32:54 influenza, unspecified formulation 07/16/2017 completed Not Available [facility] 07/25/2023 06:32:54 Influenza, split virus, quadrivalent, PF 06/17/2023 completed Not Available [facility] 09/26/2023 05:33:26 Past Encounters Encounter ID Performer Location Encounter Start Date Encounter Closed Date Diagnosis/Indication Diagnosis SNOMED-CT Code Diagnosis ICD10 Code [id number] OLGA ANGELINEYOCASTA GRIJALVA [address] [address] 02/23/2024 08:58:06 02/23/2024 09:59:23 Type 2 diabetes mellitus without complication 244125070 E11.9 E11.40 Essential hypertension 61581785 I10 N18.9 R60.9 Anxiety 48555080 F41.9 F32.A Z73.3 Obstructiv e sleep apnea syndrome 92299758 G47.33 Body mass index 30+ - obesity 069004918 Z68.36 Digestive system finding 144648531 R19.8 Nonalcohol ic steatohepatitis 356246783 K75.81 Secondary polycythemia 15682443 D75.1 Disorder o f nasal sinus 2116619 J34.9 Nephrotic syndrome, diffuse membranous glomerulonephritis 759560285 N04.20 Nodule of subcutaneous tissue of left foot 9739304207 8240724 R22.42 Erectile dysfunction 860 559920 F52.21 Benign pro static hyperplasia 169201519 N40.0 Carcinoma of duodenum 25 9604108 C17.0 Pain of le ft shoulder joint 8813162478 6868373 M25.512 Cramp in lower limb 4499 95017 R25.2 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 2011305934 100 E11.621 Pain in ri ght hip joint 2873305941 73490 M25.164 [id number] GURJIT WILLIS MD [address] [address] 03/15/2024 14:48:33 03/15/2024 15:46:20 Carcinoma of duodenum 299247693 C17.0 [id number] ADA HAMM MD [address] [address] 03/24/2024 13:12:40 03/24/2024 14:17:10 Tachycardia 3916512 R00.0 Lethargy 848595056 R53.8 3 Low blood pressure 16475 003 I95.9 Health Concerns Section Related Observation LastModified by Organization Detai ls LastModified Time None Recorded Concern Status LastModified by Organization Details LastModified Time None Recorded Payers Encounter Date Sequence Insurance Name Policy Number Policy Loo Covered Member ID Loo Member ID Guarantor Name 03/24/2024 1 [facility] [id number] Charles Hernandez [id number] [place] Notes Date Note Type Note Provider Name and Address Organization Details Recorded Time 03/24/2024 text/html HPI Notes: Dax mustafa was [...] lot. ADA HAMM MD [address], [place], [address], [facility]. 03/24/2024 16:04:59
--- OUTSIDE RECORDS SUMMARY | 2024-05-21 01:05 | XMS_ITS | Continuity of Care Document ---
Author Organization [place] - [facility] Address [address] [place] [address] Assessment No assessment recorded. Plan of Treatment Reminders Order Date Submit Date Provider Last Modified By Organization Details Last Modified Time Details Appointments Medical Nutrition Therapy 60 2023 02:00P M Not available Not available Not available Office Visit 30 2023 03:00P M Not available Not available Not available Lab None recorded. Referral None recorded. Procedures None recorded. Surgeries None recorded. Imaging None recorded. Medication Orders None recorded. Patient TargetsNo targets recorded. Patient InstructionsNo instructions recorded. Reason for Referral Quality Control Engineering Technician Referral for Nodu le of subcutaneous tissue of left foot provider is wondering why this pt has not been contacted yet - resending Referring Physician: [facility], Encounter Date: 09/23/2023 Sleep Medicine Referral for Obstructive sleep apnea syndrome Referring Physician: [facility], Encounter Date: 11/07/2023 Urologist Referral for Erect ile dysfunction Referring Physician: [facility], Encounter Date: 11/07/2023 EGD Referral for Digestive s ystem finding Referring Physician: [facility], Encounter Date: 11/07/2023 Plastic Surgeon Referral for Gynecomastia Referring Physician: [facility], Encounter Date: 12/05/2023 Endocrinology Referral for T ype 2 diabetes mellitus without complication Referring Physician: [facility], Encounter Date: 02/23/2024 Vascular Surgeon Referral fo r Cramp in lower limb Referring Physician: Olga Marcus [facility], Encounter Date: 02/23/2024 Tilt Wall Supervisor Referral f or Type 2 diabetes mellitus without complication referral for Freestyle Lina 3 Referring Physician: Olga Marcus [facility], Encounter Date: 04/02/2024 Physical Therapist Referral for Pain of left shoulder joint Referring Physician: Olga Marcus [facility], Encounter Date: 04/20/2024 Results Created Date Observation Date Name Description Value Unit Range Abnormal Flag Note LastModifiedBy Organization Detail LastModifiedTime 02/26/20 24 02/26/2024 CT imagi ng barrett holland Name: Charles Nick Unit #: [id number] Loc: DI Orderi ng Provid er: Quang Hernandez t #: [id number] Status : REG CLI Primar y [...] examin ation due to incomp lete disten laek of the bowel at this region . [...] tion); or iterat kong recons tructi on. 13-0 002: Total DLP = 0.00 mGy-cm Ordere d By: Quang Hernandez CC: WALESKAYoel [facility] ------ ------ ------ ------ ------ ------ ------ ------ ------ ------ ------ ------ ---- Dictat ed By: Juan Delacruz M.D. [id number] Transc ribed By: Juan Delacruz 110 [...] at the addres s above. Thank- you. [facility] [address], [place], [address] 02/26/2024 13:16:53 03/24/20 24 03/24/2024 CT imagi ng repor t Patien t Name: Charles Nick Unit #: [id number] Loc: ER Orderi ng Provid er: Rayo Ramos M.D. Accoun t #: [id number] Status : REG ER Primar y [...] Dose Index Regist ry (DIR) with the Charity Campbell of Radiol ogy (ACR). RADIAT ION OPTIMI ZATION : All CT scans at this facili ty use at least one of these dose optimi zation techni ques: automa dotty exposu re contro l; mA and/or kV adjust ment per patien t size (inclu sahw target ed exams where dose is matche [...] error, please notify us immedi navinly at [phone] and return the origin al report to us at the addres s above. Thank- you. [address] [place], [address] 03/25/2024 04:38:41 03/26/20 24 03/25/2024 elect gerardo johnsonlorenza am EKG JALYN Holland NAME: Charles Nick UNIT #: [id number] [facility] PROVID ER: Kenny Garcia DO ACCOUN T #: [id number] PRIMAR Y CARE [facility] ER: Alexa CHAMBERLAIN APRN DATE/T JOHN OF SERVIC E: 1507 : 1975 PERFOR HARPER LOCATI ON: ER ------ ------ --- APPROV ED REPORT ------ ------ -- Exam: Restin g ECG Reason for Exam: Hypote charmaine holland Locati on: E HR:112 bpm ECG Measur ements Heart Rate 112 AXIS MS 152 P 54 QRSd 103 QRS 70 [...] E-Sign Time: 0008 ------ ------ --- ADDEND APPRO ED REPORT ------ ------ -- Exam: Restin g ECG Reason for Exam: Hypote charmaine holland Locati on: E HR:112 bpm ECG Measur ements Heart Rate 112 AXIS MS 152 P 54 QRSd 103 QRS 70 QT 371 T -52 QTc 507 [place] Sinus tachyc ardia. ..rate > 99 Nonspe cific T abnorm alitie s, inferi or leads. ..T <-0.10 mV, II III aVF Prolon ged QT interv al...Q Tc >500mS I have review ed and interp reted ECG and agree with kassidy fowler dotty interp retati on. I have review ed and I agree with the emerge ncy room physic steph's ECG interp retati on. Electr onical ly signed by: [id number] Cosign ed by: haley [facility] [address] [place], [address] 03/26/2024 08:57:17 Result Notes None recorded. Problems Name Problem SNOMED Code Status Onset Date Resolution Date Notes Provider Name and Address Organization Details Recorded Time Jasmyne sanchez [place] 52011298 Active 2006 Alie Crowell [facility] 4 13:29:59 Nephroti c syndrome 29016783 Completed 200603/03/2007 Not Available [facility] 3 04:42:43 Chronic kidney disease stage 3 609985733 [facility] 4 13:29:40 Obstruct kong sleep apnea syndrome 13557419 Active 2013 Alie Mervat [facility] 4 13:30:42 Anxiety 27443675 Active 2014 Alie Mervat [facility] 4 13:29:15 Type 2 diabetes mellitus without complica tion 331488716 Active 2015 Alie Mervat [facility] 4 13:30:59 Obesity 571330576 Active 2015 Alie Mervat [facility] 4 13:30:35 Edema 113539125 Active 2015 [facility] 4 13:29:50 Allergy to food 004249067 [facility] 4 13:29:10 Adult health examinat ion Active 2018 [facility] 4 13:29:06 Erectile dysfunct ion 745293840 Active 2018 [facility] 4 13:29:54 Neuropat hy due to type 2 diabetes mellitus 90478435154 9106 Active 2020 Alie Mervat [facility] 4 13:30:25 Screenin g for malignan t neoplasm of colon Active 2020 Alie Mervat [facility] 4 13:30:50 Digestiv e system finding 248234625 Active 2021 [facility] 4 13:29:44 Vitamin B deficien cy 30585102 Active 2021 Alie Mervat [facility] 4 13:31:03 Pre-surg mirta evaluati on Completed 202106/01/2022 Problem Code: Z01.818; Problem Code Type: ICD-10; Not Available [facility] 3 04:42:45 Bilatera l hearing loss 39184816 Active 2021 Alieher Crowell [facility] 4 13:29:19 Venereal disease screenin g Completed 202108/24/2022 Problem Code: Z11.3; Problem Code Type: ICD-10; Not Available [facility] 3 04:42:45 Hypomagn esemia 789126729 Active 2022 [facility] 4 13:30:11 Secondar y polycyth emia 30668288 Active 2022 Alie dorsey, [facility], [facility]. 4 13:30:54 Kidney stone 35504626 Active 2022 Alie Mervat [facility], [facility] 4 13:30:16 History of polyp of colon 814149750 Active 2022 [facility] 4 13:30:07 Disorder of nasal sinus 1536395 Active 2022 OLGA MARCUS, SANE NURSE [address] [place], [place], [address] , [facility] 4 08:08:16 Nonalcoh olic steatohe patitis 269598702 Active 2022 [facility] 4 13:30:32 Body mass index 30+ - obesity 081383361 Active 2022 [facility], [facility] 4 13:29:23 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 mellitus 768871101 [facility] 4 13:30:46 Nephroti c syndrome , diffuse membrano us glomerul onephrit is 963920553 Active 2022 [facility] 4 13:30:20 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 42875536592 00 Active 2022 Alieher Crowell [facility] 4 13:30:03 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 06087072370 00 Completed 202004/10/2021 Problem Code: E11.621; Problem Code Type: ICD-10; Alie dorsey, [facility] 4 13:30:03 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 76434408425 00 Completed 202007/25/2022 Problem Code: E11.621; Problem Code Type: ICD-10; [facility] 4 13:30:03 Hypergly cemia due to type 2 diabetes mellitus 59175139127 9109 Completed 201608/15/2017 Problem Code: E11.65; Problem Code Type: ICD-10; Not Available [facility] 3 04:42:47 Phimosis 594824324 Completed 201704/29/2022 Problem Code: N47.1; Problem Code Type: ICD-10; Not Available [facility] 3 04:42:47 Snoring 75687954 Completed 201303/01/2016 Not Available [facility] 3 04:42:48 Imaging of abdomen abnormal 188215886 Completed 202212/20/2022 Problem Code: R93.5; Problem Code Type: ICD-10; Not Available [facility] 3 04:42:48 Adult health examinat ion Completed 201403/01/2016 Problem Code: Z00.00; Problem Code Type: ICD-10; [facility] 4 13:29:06 Obesity 298603028 Completed 200606/11/2023 [facility] 4 13:30:35 Fatigue 62957760 Completed 201303/01/2016 Not Available [facility] 3 04:42:48 Acute upper respirat ory infectio n 11928413 Completed 202004/29/2022 Problem Code: J06.9; Problem Code Type: ICD-10; Not Available [facility] 3 04:42:49 Nausea 152411391 Completed 202212/20/2022 Problem Code: R11.0; Problem Code Type: ICD-10; Not Available [facility] 3 04:42:49 Type 2 diabetes mellitus without complica tion 869487403 Completed 202201/10/2023 Problem Code: E11.9; Problem Code Type: ICD-10; Alie dorsey [facility]. 4 13:30:59 Dyssomni a 32148750 Completed 201303/01/2016 Problem Code: 780.59; Problem Code Type: ICD-9; Not Available [facility] 3 04:42:49 Acute bronchit is 70495367 Completed 201708/09/2019 Problem Code: J20.9; Problem Code Type: ICD-10; Not Available [facility] 3 04:42:49 Nausea and vomiting 05236079 Completed 202107/25/2022 Problem Code: R11.2; Problem Code Type: ICD-10; Not Available [facility] 3 04:42:50 Sleep apnea 21503459 Completed 201306/11/2023 Problem Code: 780.57; Problem Code Type: ICD-9; Not Available [facility] 3 04:42:50 Disturba nce of consciou sness 6766152 Completed 201303/01/2016 Problem Code: 780.09; Problem Code Type: ICD-9; Not Available [facility] 3 04:42:50 Acute sinusiti s 55622906 Completed 202004/10/2021 Problem Code: J01.90; Problem Code Type: ICD-10; Not Available [facility] 3 04:42:50 Balaniti s 10138664 Completed 201608/15/2017 Problem Code: N48.1; Problem Code Type: ICD-10; Not Available [facility] 3 04:42:51 Sleep disorder 77376022 Completed 201303/01/2016 Problem Code: 780.50; Problem Code Type: ICD-9; Not Available [facility] 3 04:42:51 Nodule of subcutan eous tissue of left foot 87991800728 535711 Active 2023 OLGA MARCUS, SANE NURSE [address], [place], [address] , [facility] 4 08:13:06 Benign prostati c hyperpla mercy 378878301 Active 2023 Alie Seindrajose m willian, [facility] 4 13:31:06 Headache 40601202 Active 2023 OLGA MARCUS APRN [address], [place], [address] , [facility] 4 08:57:45 Gynecoma stia 4925642 Active 2023 Alie yasmeen null, [facility] 4 13:31:13 Ulcer of left foot 161651783 Active 2023 ARNALDO GOMEZ CMA null, [facility] 4 09:47:50 Fibromat osis of plantar fascia of left foot 71113556521 760189 Active 2023 Alie yasmeen dorsey, [facility] 4 13:31:10 Carcinom a of duodenum 857219132 Active 2023 EGD 01/06, biopsy at that time OLGA MARCUS APRN [address], [place], [address] , [facility] 4 09:30:26 Pain of left shoulder joint 93717678718 834710 Active 2023 OLGA MARCUS APRN [address], [place], [address] , [facility] 4 09:14:45 Cramp in lower limb 732622898 Active 2023 OLGA MARCUS APRN [address], [place], [address] , [facility] 4 09:15:29 Pain in right hip joint 42232454107 9102 Active 2023 OLGA MARCUS APRN [address], [facility] [address] , [facility] 4 09:19:09 Prolonge d QT interval 383778554 Active 2023 OLGA MARCUS, YOCASTA [address], [place], [address] , [facility] 4 09:53:55 Notes:*Problem Name: Duodena l polyp *Problem Status: active *Comments: *Problem Code: K31.7 *Problem Code Type: ICD-10 *Note Date: 2022 Problem Notes None recorded. Procedures Surgical History Date Name Laterality Status Provider Name and Address Organization Details Recorded Time 4 IV insert completed Kinsey Oliveira RN [facility] 03/24/2024 15:58:08 4 endoscopy completed ARNALDO GOMEZ CMA [facility], [facility] 01/02/2024 15:34:11 Imaging Results None recorded. Procedure Notes None recorded. Medical Equipment None Reported. Allergies Allergen ID Allergen Name Allergen Category Reaction Reaction Severity Criticality Documentation Date Start Date Code Code System Note Provider Name and Address Organization Details Recorded Time 11357 Medicinal product containin g penicilli n and acting as antibacte rial agent (product) medicatio n other mild Not available 11/29/20232006 13936 05 SNOMED Swell ing of throa t Loren Carina [facility], [facility] 4 13:58:03 Medications Name Sig Start Date Stop Date Status Note LastModified by Organization Details LastModified Time Prescript ion - Prior Authoriza tion Request active Not Available Not Available Not Available furosemid e 40 mg tablet TAKE 1 TABLET BY MOUTH TWICE A DAY 03/11 completed Changed dosing per [facility] 03/08/24 Not Available Not Available Not Available acetamino phen 325 mg tablet Take 2 tablets every 8 hours by oral route as needed. active Per [facility] d/c summary 04/01/24 Not Available Not Available [...] HCl 150 mg capsule active Stopped per [facility] d/c summary 04/01/24 Not Available Not Available [...] MOUTH EVERY DAY NEEDED active Stopped per [facility] d/c summary 04/01/24 Not Available Not Available [...] every day by oral route. active Per [facility] d/c summary continue 04/01/24 Not Available Not [...] MOUTH EVERY DAY 04/23 completed Stopped per [facility] d/c summary 04/01/24 Not Available Not Available [...] Not Available Not Available No t Available [employer] Ultra2 Meter test once daily 2015 active [...] Available No t Available FreeStyle Lina [address] [place] USE DIRECTED active Not Available Not Available No t Available Vitals Date Recorded Body height Body mass index (BMI) Body weight Oxygen saturation Oxygen saturation in Arterial blood by Pulse oximetry Heart rate Systolic blood pressure Diastolic blood pressure Provider Name and Address Organization Details Last Updated DateTime 4 186.69 cm 34.4 kg/m2 409495. 39 g 97 % 97 % 116 /min 128 mm[Hg] 66 mm[Hg] MELANIE MEIER MA [facility] 15:00:31 Social History Question Answer Notes LastModified by Organizat ion Details LastModified Time Tobacco Smoking Status Never Smoker ARNALDO GOMEZBRI null, [facility] 12/05/2023 08:46:50 What Was The Date [...] preservative free, adsorbed 04/22/2017 completed Not Available [facility] 07/25/2023 06:32:54 Tdap 02/27/2007 completed Not Available [facility] 06:32:54 Influenza, split virus, quadrivalent, PF 09/21/2020 completed Not Available [facility] 07/25/2023 06:32:54 Influenza, split virus, quadrivalent, PF 06/19/2021 completed Not Available [facility] 07/25/2023 06:32:54 Influenza, split virus, quadrivalent, PF 08/02/2019 completed Not Available [facility] 07/25/2023 06:32:54 COVID-19 vaccine, vector-nr, rS-Ad26, PF, 0.5 mL 01/19/2021 completed Not Available [facility] 07/25/2023 06:32:54 pneumococcal polysaccharide PPV23 09/21/2020 completed Not Available [facility] 2022 06:32:54 influenza, unspecified formulation 07/05/2016 completed Not Available [facility] 07/25/2023 06:32:54 influenza, unspecified formulation 07/16/2017 completed Not Available [facility] 07/25/2023 06:32:54 Influenza, split virus, quadrivalent, PF 06/17/2023 completed Not Available [facility] 09/26/2023 05:33:26 Past Encounters Encounter ID Performer Location Encounter Start Date Encounter Closed Date Diagnosis/Indication Diagnosis SNOMED-CT Code Diagnosis ICD10 Code [id number] OLGA MARCUS [address] [address] 02/23/2024 08:58:06 02/23/2024 09:59:23 Type 2 diabetes mellitus without complication 294159032 E11.9 E11.40 Essential hypertension 38718851 I10 N18.9 R60.9 Anxiety 90433683 F41.9 F32.A Z73.3 Obstructiv e sleep apnea syndrome 33417793 G47.33 Body mass index 30+ - obesity 372776582 Z68.36 Digestive system finding 578810382 R19.8 Nonalcohol ic steatohepatitis 990235833 K75.81 Secondary polycythemia 50607742 D75.1 Disorder o f nasal sinus 3381264 J34.9 Nephrotic syndrome, diffuse membranous glomerulonephritis 993474095 N04.20 Nodule of subcutaneous tissue of left foot 2969217355 5881259 R22.42 Erectile dysfunction 860 743455 F52.21 Benign pro static hyperplasia 826599690 N40.0 Carcinoma of duodenum 25 5487503 C17.0 Pain of le ft shoulder joint 2921607483 5727690 M25.512 Cramp in lower limb 4499 26876 R25.2 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 5199802030 100 E11.621 Pain in ri ght hip joint 8608123981 03828 M25.978 [id number] GURJIT WILLIS MD [facility] [address] [place] [address] 03/15/2024 14:48:33 03/15/2024 15:46:20 Carcinoma of duodenum 175122379 C17.0 Health Concerns Section Related Observation LastModified by Organization Shreyas ls LastModified Time None Recorded Concern Status LastModified by Organization Details LastModified Time None Recorded Payers Encounter Date Sequence Insurance Name Policy Number Policy Loo Covered Member ID Loo Member ID Guarantor Name 03/15/2024 1 [facility] [id number] Charles Franks [place] [id number] Charles Golden Nick Notes Date Note Type Note Provider Name and Address Organization Details Recorded Time 03/15/2024 text/html HPI Notes: Sandy mortensen here for some hospital discharge follow-up. 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 is [...] range GURJIT WILLIS MD [address], [place], [address], [facility]. 03/17/2024 10:23:16
--- OUTSIDE RECORDS SUMMARY | 2024-05-21 01:06 | XMS_ITS | Encounter Summary ---
Author Organization [facility] Address [address] [place] [address] Care Team Providers Care Color Making Supervisor Name Role Phone Ramiro Cardenas MD Primary Care Provider [phone] Encounter Details Date Type Department Care Team (Latest Contact Info) Description 05/03/2022 Travel Social History Tobacco Use Types Packs/Day Years Used Date Smoking Tobacco: Never Smokeless Tobacco: Never Alcohol Use Standard Drinks/Week Comments Not Currently 0 (1 standard drink = 0.6 oz pur e alcohol) Sex and Gender Information Value Date Recorded Sex Assigned at Not on file Gender Identity Male 05/03/2022 9:53 EDT Sexual Orientation Not on file COVID-19 Exposure Response Date Recorded In the last 10 days, have yo u been in contact with someone who was confirmed or suspected to have Coronavirus/COVID-19? No / Unsure 05/03/2022 10:41 EDT documented as of this encounter Plan of Treatment Not on file documented as of this encounter Visit Diagnoses Not on filedocumented in this encounter Care Teams Color Making Supervisor Relationship Specialty Start Date End Date Ramiro Cardenas MD [address] [place] [address] PCP - General 04/24/09 documented as of this encounter
--- OUTSIDE RECORDS SUMMARY | 2024-05-21 01:06 | XMS_ITS | Encounter Summary ---
Author Organization [facility] Address [address] [place] [address] Care Team Providers Care Kiln Worker Name Role Phone Ramiro Cardenas MD Primary Care Provider [phone] Reason for Visit * Auth/Cert Specialty Diagnoses / Procedures Referred By Janak holland Referred To Contact Diagnoses Combined forms of age-related cataract of left eye Combined forms of age-related cataract of left eye [H25.812] Procedures [facility] XCAPSL CTRC RMVL INSJ IO LENS PROSTH W/O ECP EXTRACTION, CATARACT, EXTRACAPSULAR, WITH IOL INSERTION ORA - Toric Referral ID Status Reason Start Date Expiration Date Visits Re quested Visits Authorized [id number] 1 1 Encounter Details Date Type Department Care Team (Late st Contact Info) Description 05/10/2022 11:15 EDT - 05/10/2022 12:00 EDT Surgery [facility] Operating Room [address] [place] [address] Ezequiel Andrea MD [address] [place] [phone] EXTRACTION, CATARACT, EXTRACAPSULAR, WITH IOL INSERTION ORA - Toric [[id number] (CPT??)] Surgery Details Date/Time Status Location OR Service Patient Class Case Cl ass Case Type Trauma Case? 05/10/22 1115 Posted [facility] [place] [facility] H - Elective Panel 1 Procedure LRB Anes Op Region Wound Class Comments EXTRACTION, CATARACT, EXTRACAPSULAR, WITH IOL INSERTION ORA - Toric Left Monitored Anesthesia Care Eye Class I/ Clean Surgeon Surgeon Role Service Panel Ezequiel Andrea MD Primary Ophthalmology 1 Special Needs *ORA* CM 05/06 documented in this encounter Social History Tobacco Use Types Packs/Day Years [...] suspected to have Coronavirus/COVID-19? No / Unsure 05/10/2022 10:06 EDT documented as of this encounter Last Filed Vital Signs Vital Sign Reading Time Taken Comments Blood Pressure 137/104 05/10/2022 1154 EDT Pulse - - Temperature 36.2 ??C (97.1 ??F) 05/10/2022 1154 EDT Respiratory Rate 21 05/10/2022 1154 EDT Oxygen Saturation 97% 05/10/2022 1154 EDT Inhaled Oxygen Concentration - - Weight 134.3 kg (296 lb) 05/10/2022 1006 EDT Height 188 cm (6' 2.02) 05/10/2022 1006 EDT Body Mass Index 37.99 05/10/2022 1006 EDT documented in this encounter Discharge Instructions * Discharge Instructions* Ezequiel Andrea MD - 05/10/2022 11:54 EDT Post-op instructions following Cataract Surgery You will return to Dr. Andrea???s office for a post-op visit in the afternoon after your surgery, TODAY at 1:30 PM. Please bring your blue bag with the eye drops to your first post-op visit. You may take Tylenol or Ibuprofen for any minor discomfort or scratchiness after surgery and visionis expected to be blurry. Please do not rub your eye. No heavy lifting or bending for one week after surgery. Try to squat instead of full bend, goal is to have limited pressure in your head. (no exertion or strain - with limited physical exercise) You can shower the day after your surgery, but DO NOT let water spray directly into the operative eye. Please wear clear plastic eye shield over the operative eye for ONE WEEK at bedtime only. You will be seen the afternoon after surgery, one week and one month following cataract surgery. Atone month appointment your eyes will be dilated and you will be provided with an updated glasses prescription. Please call if you have any pain, decrease in vision, new flashes and or floaters. If you have any question, do not hesitate to call the office at [phone]. documented in this encounter Medications at Time of Discharge Medication Sig Dispensed Refills Start Date End Date furosemide (LASIX) 40 mg tablet Take 40 mg by mouth daily. gabapentin (NEURONTIN) 600 mg tablet Take 600 mg by mouth 3 times daily. glimepiride (AMARYL) 4 mg tablet Take 4 mg by mouth daily. insulin detemir U-100 (LEVEMIR U-100 INSULIN) 100 unit/mL injection Inject into the skin at bedtime. ketOROLAC tromethamine (ACULAR LS) 0.4 % dropsIndications:Combined forms of age-related cataract of right eye Place 1 Drop into the right eye 4 times daily. 5 mL 05/01/2022 metFORMIN (GLUCOPHAGE) 1,000 mg tablet Take 1,000 mg by mouth 2 times daily. moxifloxacin (VIGAMOX) 0.5 % ophthalmic solutionIndications:Combine d forms of age-related cataract of right eye Place 1 Drop into the right eye 4 times daily. 3 mL 05/03/2022 prednisoLONE (PRED FORTE) 1 % ophthalmic suspensionIndications:Combi janice forms of age-related cataract of right eye Place 1 Drop into the right eye 4 times daily. 5 mL 05/03/2022 tadalafiL (CIALIS) 10 mg tablet Take 10 mg by mouth daily. valsartan (DIOVAN) 40 mg tablet Take 40 mg by mouth 2 times daily. documented as of this encounter Discharge Disposition Disposition Code Departure Means Destination Comment s Home or Self Care Walk-out Home ambulatory with this RN To car to meet ride documented in this encounter H&P Notes * Ezequiel Andrea MD - 05/10/2022 1019 EDT The preoperative history and physical which was performed within 30 days of this Procedure (scanned from 8/158/22) has been reviewed and the clinically appropriate elements of the physical examination have been repeated. There are no changes to the documented history and physicalor if so such changes are documented below Ezequiel Andrea MD 05/10/22 10:19 documented in this encounter OR Notes * OR Surgeon - Ezequiel Andrea MD - 05/10/2022 1152 EDT EXTRACTION, CATARACT, EXTRACAPSULAR, WITH IOL INSERTION ORA - Toric (L) Operative Note Date: 05/10/2022 [place] [facility] [place] Charles Nick, : 1975, PREOPERATIVE DIAGNOSIS: 1. Visually significant and symptomatic cataract, left eye. See preoperative ophthalmology notes for cataract subtype. 2. Corneal astigmatism, left eye POSTOPERATIVE DIAGNOSIS: same as above PROCEDURES: 1. Review of intraocular lens power calculations, both eyes 2. Extraction of lens by phacoemulsification, left eye. 3. Toric intraocular lens implantation, Kiet Model [id number] 18.5 D, left eye. SURGEON: Ezequiel Andrea MD STONE DERRICKMAN AND RIGGER: DANIELA Lyn ANESTHESIA: Topical and MAC ESTIMATED BLOOD LOSS: less than 1.0 mL SPECIMENS: None COMPLICATIONS: None INDICATIONS: Please see my preoperative notes for a complete explanation of the patient's indications for surgery. PROCEDURE IN DETAIL: After obtaining informed consent, the patient was taken to the operating room where blood pressure, cardiac, and oxygen monitors were applied. A time-out then took place confirming the patient, the procedure, and the correct site. Drops of tetracaine were instilled in the operative eye in the pre-operative area. A Cionni marker was used to identify the 0, 90, and 180 degree meridians which were marked on the cornea. Drops of 5% povidone iodine were applied to the ocular surface and the left eye was then prepped with Betadine and draped in the usual sterile fashion for intraocular surgery. A lid speculum was placed into the left eye. Additional drops of tetracaine were then applied. A paracentesis was created with an MVR blade. 1% preservative-free lidocaine with 1% phenylephrine was injected into the anterior chamber. The anterior chamber was then deepened with VisCoat and a Duran ring was used to immobilize the eye. A triplanar clear corneal incision was created using a 2.4 mm keratome temporally. A continuous curvelinear capsulorrhexis was created using a pre-bent cystitome and capsulorrhexis forceps. Hydrodissection was performed using balanced salt solution on a cannula. Phacoemulsification of the lens nucleus was accomplished in a phacochop technique. The nuclear fragments were completely removed using phacoemulsification. The remaining cortex was r emoved using irrigation and aspiration. The capsular bag was filled with ProVisc. The intraocular lens power calculations were reviewed and ORA intraoperative aberrometry was used and the best lens was selected to give the desired post-operative refractive state. The 80 degree meridian was identified with a Green ring and marked. A 18.5 diopter toric lens was placed into the capsular bag using alens injector. The lens was positioned with a Luigi chopper and rotated to just short of the finalmeridian. The remaining viscoelastic material was removed using irrigation and aspiration. The lenswas then rotated to the 80 degree meridian. The eye was formed and the incisions were hydrated withbalanced salt solution on an angled blunt-tipped cannula. The incisions were then checked with Weck-Ariana sponges and found to be watertight. Moxifloxacin 0.5% was injected into the anterior chamber with a 30 gauge cannula, a total of 0.1 mL was given. The lid speculum, drapes, and operating microscope were removed from the surgical field and Betadine was cleansed from the periocular skin using a wet sponge. Prednisolone drops were instilled into the conjunctival sac. A clear protective shield was taped over the eye. The patient tolerated the procedure well and there were no complications. The patient returned to the manager career area alert and in good condition. * Preprocedure Instructions - Nahomi Zuniga RN - 05/07/2022 3363 EDT Charles Nick has been instructed as follows regarding medication administration for the day of the scheduled procedure. Date of Surgery: 05/10/22 Instructions for Taking Medications Day of Surgery Medication Sig Last Dose Hold DOS Take DOS furosemide (LASIX) 40 mg tablet Take 40 mg by mouth daily. hold gabapentin (NEURONTIN) 600 mg tablet Take 600 mg by mouth 3 times daily. Patient not taking: Reported on 05/03/2022 Not Taking at Unknown time glimepiride (AMARYL) 4 mg tablet Take 4 mg by mouth daily. hold insulin detemir U-100 (LEVEMIR U-100 INSULIN) 100 unit/mL injection Inject into the skin at bedtime. Patient not taking: Reported on 05/02/2022 Not Taking at Unknown time ketOROLAC tromethamine (ACULAR LS) 0.4 % drops Place 1 Drop into the right eye 4 times daily. metFORMIN (GLUCOPHAGE) 1,000 mg tablet Take 1,000 mg by mouth 2 times daily. hold moxifloxacin (VIGAMOX) 0.5 % ophthalmic solution Place 1 Drop into the right eye 4 times daily. prednisoLONE (PRED FORTE) 1 % ophthalmic suspension Place 1 Drop into the right eye 4 times daily. tadalafiL (CIALIS) 10 mg tablet Take 10 mg by mouth daily. hold valsartan (DIOVAN) 40 mg tablet Take 40 mg by mouth 2 times daily. take Understands to take eye drops prescribed as directed by md. documented in this encounter Plan of Treatment Scheduled Referrals Name Type Priority Associated Diagnoses Order Schedule PROVIDER FOLLOW-UP INSTRUCTIONS Outpatient Referral Routine/Next Available Ordered: 05/10/2022 documented as of this encounter Procedures Procedure Name Priority Date/Time Associated Diagnosis Comments PROCEDURE REPORTS - SCANNED 05/28/2022 9:23 EDT ECG REPORT - SCANNED 05/14/2022 8:14 EDT EXTRACTION, CATARACT, EXTRACAPSULAR, WITH IOL INSERTION 05/10/2022 11:02 EDT Combined forms of age-related cataract of left eye Special Needs *ORA* CM 05/06 documented in this encounter Results * PROCEDURE REPORTS - SCANNED (05/28/2022 9:23 EDT) 05/28/2022 9:23 EDT Scan 2 [employer] Windows Engineer PROCEDURE/MINOR LEXA GICAL ORDERABLES * ECG REPORT - SCANNED (05/14/2022 8:14 EDT) 05/14/2022 8:14 EDT Scan 2 [employer] Engineer PROCEDURE/MINOR LEXA GICAL ORDERABLES documented in this encounter Visit Diagnoses Diagnosis Combined forms of age-related cataract of left eye- Primary Other and combined forms of senile cataract Combined forms of age-related cataract of left eye Other and combined forms of senile cataract documented in this encounter Admitting Diagnoses Diagnosis Combined forms of age-related cataract of left eye Other and combined forms of senile cataract documented in this encounter Administered Medications Inactive Administered Medications - up to 3 most recent administrations Medication Order MAR Action Action Date Dose Rate Site balanced salt solution inrrigation solution (BSS PLUS) 500 mL, EPINEPHrine HCl (PF) (ADRENALIN) 0.3 mL irrigation PRN, Starting on Fri05/10/22 at 1124, Until Fri05/10/22 at 1152, Routine, Intraprocedure Given 05/10/2022 11:24 EDT 500 mL Left Eye balanced salts (BSS) ophthalmic solution PRN, Starting on Fri05/10/22 at 1124, Until Fri05/10/22 at 1152, Routine, Intraprocedure Given 05/10/2022 11:24 EDT 15 mL Left Eye chondroitin-sodium hyaluronate (VISCOAT) ophthalmic solution PRN, Starting on Fri05/10/22 at 1125, Until Fri05/10/22 at 1152, Routine, Intraprocedure Given 05/10/2022 11:25 EDT 0.5 mL Left Eye glycopyrrolate (ROBINUL) injection 0.2 mg 0.2 mg, intravenous, EVERY 3 MINUTES PRN, Starting on Fri05/10/22 at 1153, Until Fri05/10/22 at 1408, BRADYCARDIA, Routine, Recovery (only) ketOROLAC (ACULAR) 0.5 % ophthalmic solution 1 Drop 1 Drop, left eye, PRE-OP MULTIPLE, 3 doses, Starting on Fri05/10/22 at 1003, Until Fri05/10/22 at 1032, for cataract pre-procedure, follow admin instructions, Routine, Preprocedure Given 05/10/2022 10:32 EDT 1 Drop Given 05/10/2022 10:24 EDT 1 Drop Given 05/10/2022 10:17 EDT 1 Drop lactated ringers BOLUS 500 mL 500 mL, intravenous, ONCE PRN, 1 dose, Starting on Fri05/10/22 at 1153, Until Fri05/10/22 at 1408, Other, SBP below 100 or MAP below 60, Routine, Recovery (only) lidocaine 1% + phenylephrine 1% intracameral syringe 0.8 mL, intracameral, INTRA-OP ONCE, 1 dose, On Fri05/10/22 at 0800, Routine, Intraprocedure Given 05/10/2022 11:25 EDT 0.8 mL Left Eye moxifloxacin (VIGAMOX) 0.5 % ophthalmic solution 1 Drop 1 Drop, left eye, PRE-OP MULTIPLE, 3 doses, Starting on Fri05/10/22 at 1003, Until Fri05/10/22 at 1041, Other, for cataract pre-procedure, follow admin instructions, Routine, Preprocedure Given 05/10/2022 10:41 EDT 1 Drop Given 05/10/2022 10:38 EDT 1 Drop Given 05/10/2022 10:35 EDT 1 Drop moxifloxacin intracameral syringe 1.5 mg/0.3 mL 1.5 mg, intracameral, INTRA-OP ONCE, 1 dose, On Fri05/10/22 at 0800, Routine, Intraprocedure Given 05/10/2022 11:25 EDT 1.5 mg Left Eye ondansetron (PF) (ZOFRAN) injection 4 mg 4 mg, intravenous, ONCE PRN, 1 dose, Starting on Fri05/10/22 at 1153, Until Fri05/10/22 at 1408, Nausea, Routine, Recovery (only) phenylephrine (MYDFRIN) 2.5 % ophthalmic solution 1 Drop 1 Drop, left eye, PRE-OP MULTIPLE, 3 doses, Starting on Fri05/10/22 at 1003, Until Fri05/10/22 at 1027, Other, for cataract pre-procedure, follow admin instructions, Routine, Preprocedure Given 05/10/2022 10:27 EDT 1 Drop Given 05/10/2022 10:20 EDT 1 Drop Given 05/10/2022 10:13 EDT 1 Drop povidone-iodine 5 % ophthalmic solution PRN, Starting on Fri05/10/22 at 1125, Until Fri05/10/22 at 1152, Routine, Intraprocedure Given 05/10/2022 11:25 EDT 5 Drops Left Eye scopolamine (TRANSDERM-SCOP) 1 mg over 3 days patch 1 Patch 1 Patch, transdermal, Administer over 72 Hours, ONCE PRN, 1 dose, Starting on Fri05/10/22 at 1153, Until Fri05/10/22 at 1408, Routine, Recovery (only) sodium chloride 0.9 % (flush) flush 5 mL 5 mL, intravenous, EVERY 8 HOURS, First dose on Fri05/10/22 at 1030, Until Discontinued, Routine, Preprocedure sodium hyaluronate (HEALON) ophthalmic injection PRN, Starting on Fri05/10/22 at 1125, Until Fri05/10/22 at 1152, Routine, Intraprocedure Given 05/10/2022 11:25 EDT 8.5 mg Left Eye tetracaine (PONTOCAINE) 0.5 % ophthalmic solution PRN, Starting on Fri05/10/22 at 1125, Until Fri05/10/22 at 1152, Routine, Intraprocedure Given 05/10/2022 11:25 EDT 2 Drops Left Eye tropicamide (MYDRIACYL) 1 % ophthalmic solution 1 Drop 1 Drop, left eye, PRE-OP MULTIPLE, 3 doses, Starting on Fri05/10/22 at 1003, Until Fri05/10/22 at 1029, Other, for cataract pre-procedure, follow admin instructions, Routine, Preprocedure Given 05/10/2022 10:29 EDT 1 Drop Given 05/10/2022 10:22 EDT 1 Drop Given 05/10/2022 10:15 EDT 1 Drop documented in this encounter Active and Recently Administered Medications Times are shown in EDT. Scheduled Medication Order 05/08/2022 05/09/2022 05/10/2022 lidocaine 1% + phenylephrine 1% intracameral syringe (COMPLETED) 0.8 mL, intracameral, INTRA-OP ONCE, 1 dose, On Fri05/10/22 at 0800, Routine, Intraprocedure 0800 (Due)1125 (Give n - Provider: Ezequiel Andrea MD) moxifloxacin intracameral syringe 1.5 mg/0.3 mL (COMPLETED) 1.5 mg, intracameral, INTRA-OP ONCE, 1 dose, On Fri05/10/22 at 0800, Routine, Intraprocedure 0800 (Due)1125 (Give n - Provider: Ezequiel Andrea MD) sodium chloride 0.9 % (flush) flush 5 mL(Linked Group 1) 5 mL, intravenous, EVERY 8 HOURS, First dose on Fri05/10/22 at 1030, Until Discontinued, Routine, Preprocedure 1030 (Canceled Entry - Provider: Batch Job User Admin - Comment: Automatically canceled at discontinue of medication order) PRN Medication Order 05/08/2022 05/09/2022 05/10/2022 balanced salt solution inrrigation solution (BSS PLUS) 500 mL, EPINEPHrine HCl (PF) (ADRENALIN) 0.3 mL irrigation (CANCELED) PRN, Starting on Fri05/10/22 at 1124, Until Fri05/10/22 at 1152, Routine, Intraprocedure 1124 (Given - Provid er: Ezequiel Andrea MD) balanced salts (BSS) ophthalmic solution (CANCELED) PRN, Starting on Fri05/10/22 at 1124, Until Fri05/10/22 at 1152, Routine, Intraprocedure 1124 (Given - Provid er: Ezequiel Andrea MD) chondroitin-sodium hyaluronate (VISCOAT) ophthalmic solution (CANCELED) PRN, Starting on Fri05/10/22 at 1125, Until Fri05/10/22 at 1152, Routine, Intraprocedure 1125 (Given - Provid er: Ezequiel Andrea MD) glycopyrrolate (ROBINUL) injection 0.2 mg 0.2 mg, intravenous, EVERY 3 MINUTES PRN, Starting on Fri05/10/22 at 1153, Until Fri05/10/22 at 1408, BRADYCARDIA, Routine, Recovery (only) ketOROLAC (ACULAR) 0.5 % ophthalmic solution 1 Drop (COMPLETED) 1 Drop, left eye, PRE-OP MULTIPLE, 3 doses, Starting on Fri05/10/22 at 1003, Until Fri05/10/22 at 1032, for cataract pre-procedure, follow admin instructions, Routine, Preprocedure 1017 (Given - Provid er: Francisca Rosas RN)1024 (Given - Provider: Francisca Rosas RN)1032 (Given - Provider: Francisca Rosas RN) lactated ringers BOLUS 500 mL 500 mL, intravenous, ONCE PRN, 1 dose, Starting on Fri05/10/22 at 1153, Until Fri05/10/22 at 1408, Other, SBP below 100 or MAP below 60, Routine, Recovery (only) moxifloxacin (VIGAMOX) 0.5 % ophthalmic solution 1 Drop (COMPLETED) 1 Drop, left eye, PRE-OP MULTIPLE, 3 doses, Starting on Fri05/10/22 at 1003, Until Fri05/10/22 at 1041, Other, for cataract pre-procedure, follow admin instructions, Routine, Preprocedure 1035 (Given - Provid er: Francisca Rosas RN)1038 (Given - Provider: Francisca Rosas RN)1041 (Given - Provider: Francisca Rosas RN) ondansetron (PF) (ZOFRAN) injection 4 mg 4 mg, intravenous, ONCE PRN, 1 dose, Starting on Fri05/10/22 at 1153, Until Fri05/10/22 at 1408, Nausea, Routine, Recovery (only) phenylephrine (MYDFRIN) 2.5 % ophthalmic solution 1 Drop (COMPLETED) 1 Drop, left eye, PRE-OP MULTIPLE, 3 doses, Starting on Fri05/10/22 at 1003, Until Fri05/10/22 at 1027, Other, for cataract pre-procedure, follow admin instructions, Routine, Preprocedure 1013 (Given - Provid er: Francisca Rosas RN)1020 (Given - Provider: Francisca Rosas RN)1027 (Given - Provider: Francisca Rosas RN) povidone-iodine 5 % ophthalmic solution (CANCELED) PRN, Starting on Fri05/10/22 at 1125, Until Fri05/10/22 at 1152, Routine, Intraprocedure 1125 (Given - Provid er: Ezequiel Andrea MD) scopolamine (TRANSDERM-SCOP) 1 mg over 3 days patch 1 Patch 1 Patch, transdermal, Administer over 72 Hours, ONCE PRN, 1 dose, Starting on Fri05/10/22 at 1153, Until Fri05/10/22 at 1408, Routine, Recovery (only) sodium hyaluronate (HEALON) ophthalmic injection (CANCELED) PRN, Starting on Fri05/10/22 at 1125, Until Fri05/10/22 at 1152, Routine, Intraprocedure 1125 (Given - Provid er: Ezequiel Andrea MD) tetracaine (PONTOCAINE) 0.5 % ophthalmic solution (CANCELED) PRN, Starting on Fri05/10/22 at 1125, Until Fri05/10/22 at 1152, Routine, Intraprocedure 1125 (Given - Provid er: Ezequiel Andrea MD) tropicamide (MYDRIACYL) 1 % ophthalmic solution 1 Drop (COMPLETED) 1 Drop, left eye, PRE-OP MULTIPLE, 3 doses, Starting on Fri05/10/22 at 1003, Until Fri05/10/22 at 1029, Other, for cataract pre-procedure, follow admin instructions, Routine, Preprocedure 1015 (Given - Provid er: Francisca Rosas RN)1022 (Given - Provider: Francisca Rosas, RN)1029 (Given - Provider: Francisca Rosas RN) Linked Groups Order Group 1: Insert Saline Lock (CANCELED) Routine, ONE TIME, On Fri05/10/22 at 1005, For 1 occurrence, Preprocedure And sodium chloride 0.9 % (flush) flush 5 mLJump to med 5 mL, intravenous, EVERY 8 HOURS, First dose on Fri05/10/22 at 1030, Until Discontinued, Routine, Preprocedure documented in this encounter Orders Medications Ordered That Kyle ht Not Have Been Administered Count Last Ordered Date First Ordered Date glycopyrrolate (ROBINUL) injection 0.2 mg 1 05/10/2022 lactated ringers BOLUS 500 mL 1 05/10/2022 ondansetron (PF) (ZOFRAN) injection 4 mg 1 05/10/2022 scopolamine (TRANSDERM-SCOP) 1 mg over 3 days patch 1 Patch 1 05/10/2022 sodium chloride 0.9 % (flush) flush 5 mL 1 05/10/2022 Nursing Count Last Ordered Date First Orde red Date ACTIVITY INSTRUCTIONS 2 05/10/2022 BATHING INSTRUCTIONS 1 05/10/2022 WOUND CARE INSTRUCTIONS 1 05/10/2022 Discharge Count Last Ordered Date First Orde red Date DISCHARGE PATIENT 1 05/10/2022 documented in this encounter Care Teams Kiln Worker Relationship Specialty Start Date End Date Ramiro Cardenas MD [address] [place] [address] PCP - General 04/24/09 documented as of this encounter
--- OUTSIDE RECORDS SUMMARY | 2024-05-21 01:06 | XMS_ITS | Encounter Summary ---
Author Organization [facility] Address [address] [place] [address] Care Team Providers Care Security Ambassador Name Role Phone Ramiro Cardenas MD Primary Care Provider [phone] Reason for Referral * Specialty Diagnoses / Procedures Referred By Janak holland Referred To Contact Ezequiel Andrea MD [address] [place] [address] Referral ID Status Reason Start Date Expiration Date Visits Re quested Visits Authorized Comments - Bleeding - Discharge - Fever/chills - Flashes or floaters - Headache - Increased pain - Nausea or vomiting - Vision loss Reason for Visit * Auth/Cert Specialty Diagnoses / Procedures Referred By Janak holland Referred To Contact Diagnoses 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 [H25.811] Procedures MS XCAPSL CTRC RMVL INSJ IO LENS PROSTH W/O ECP EXTRACTION, CATARACT, EXTRACAPSULAR, WITH IOL INSERTION ORA - Toric Referral ID Status Reason Start Date Expiration Date Visits Re quested Visits Authorized [id number] 1 1 Encounter Details Date Type Department Care Team (Latest Contact Info) Description 05/03/2022 9:54 EDT - 05/03/2022 12:57 EDT Hospital Encounter [facility] Operating Room [address] [place] [address] Ezequiel Andrea MD [address] [place] [address] Discharge Disposition: Home or Self Care Social History Tobacco Use Types Packs/Day Years [...] 10:41 EDT documented as of this encounter Last Filed Vital Signs Vital Sign Reading Time Taken Comments Blood Pressure 133/97 05/03/2022 1246 EDT Pulse - - Temperature 36.6 ??C (97.8 ??F) 05/03/2022 1223 EDT Respiratory Rate 23 05/03/2022 1246 EDT Oxygen Saturation 95% 05/03/2022 1246 EDT Inhaled Oxygen Concentration - - Weight 134.3 kg (296 lb) 05/03/2022 1058 EDT Height 188 cm (6' 2) 05/03/2022 1058 EDT Body Mass Index 38 05/03/2022 1058 EDT documented in this encounter Discharge Instructions * Discharge Instructions* Ezequiel Andrea MD - 05/03/2022 12:13 EDT Post-op instructions following Cataract Surgery You will return to Dr. Andrea???s office for a post-op visit in the afternoon after your surgery, Today at 2 PM. Please bring your blue bag with [...] not hesitate to call the office at [phone]. documented in this encounter Medications at Time [...] Discharge Disposition Disposition Code Departure Means Destination Home or Self Snf documented in this encounter H&P Notes * Ezequiel Andrea MD - 05/03/2022 1755 EDT The preoperative history and physical which was performed within 30 days of this procedure has been reviewed and the clinically appropriate elements of the physical examination have been repeated. There are no changes to the documented history and physical or if so such changes are documented below Ezequiel Andrea MD 05/03/2022 11:08 Source Note - Heron, Scan Admin Background - 05/02/2022 0:00 EDT documented in this encounter OR Notes * OR Surgeon - Ezequiel Andrea MD - 05/03/2022 1211 EDT EXTRACTION, CATARACT, EXTRACAPSULAR, WITH IOL INSERTION ORA - Toric (R) Operative Note Date: 05/03/2022 Location: [facility] OR Name: Charles Nick, : 1975, PREOPERATIVE DIAGNOSIS: 1. Visually significant and symptomatic cataract, right eye. See preoperative ophthalmology notes for cataract subtype. 2. Corneal astigmatism, right eye POSTOPERATIVE DIAGNOSIS: same as above PROCEDURES: 1. Review of intraocular lens power calculations, both eyes 2. Extraction of lens by phacoemulsification, right eye. 3. Toric intraocular lens implantation, Kiet Model [id number] 20.0 D, right eye. SURGEON: Ezequiel Andrea MD CLINICAL ACCOUNT MANAGER: DANIELA Lyn ANESTHESIA: Topical and MAC ESTIMATED [...] applied to the ocular surface and the right eye was then prepped with Betadine and draped in the usual sterile fashion for intraocular surgery. A lid speculum was placed into the right eye. Additional drops of tetracaine werethen applied. A paracentesis was created with an MVR blade. 1% preservative-free lidocaine with 1% phenylephrine was injected into the anterior chamber. The anterior chamber was then deepened with VisCoat and a Duran ring was used to immobilize the eye. A triplanar clear corneal incision was created using a 2.4 mm keratome temporally. A continuous curvelinear capsulorrhexis was created using apre-bent cystitome and capsulorrhexis forceps. Hydrodissection was performed using balanced salt solution on a cannula. Phacoemulsification of the lens nucleus was accomplished in a phacochop technique. The nuclear fragments were completely removed using phacoemulsification. The remaining cortex was removed using irrigation and aspiration. The capsular bag was filled with ProVisc. The intraocularlens power calculations were reviewed and ORA intraoperative aberrometry was used and the best lenswas selected to give the desired post-operative refractive state. The 102 degree meridian was identified with a Green ring and marked. A 20.0 diopter toric lens was placed into the capsular bag using a lens injector. The lens was positioned with a Luigi chopper and rotated to just short of the final meridian. The remaining viscoelastic material was removed using irrigation and aspiration. The lens was then rotated to the 102 degree meridian. The eye was formed and the incisions were hydrated with balanced salt solution on an angled blunt-tipped cannula. The incisions were then checked with Weck-Ariana sponges and found to be watertight. Moxifloxacin 0.5% was injected into the anterior chamber with a 30 gauge cannula, a total of 0.1 mL was given. The lid speculum, drapes, and operating microscope were removed from the surgical field and Betadine was cleansed from the periocular skin usinga wet sponge. A clear protective shield was taped over the eye. The patient tolerated the procedurewell and there were no complications. The patient returned to the career counselor area alert and ingood condition. * Preprocedure Instructions - Lisa Kemp RN - 05/02/2022 0982 EDT Charles Nick has been instructed as follows regarding medication administration for the day of the scheduled procedure. Date of Surgery: 05/03/22 Instructions for Taking Medications Day of Surgery Medication Sig Last Dose Hold DOS Take DOS furosemide (LASIX) 40 mg tablet Take 40 mg by mouth daily. x gabapentin (NEURONTIN) 600 mg tablet Take 600 mg by mouth 3 times daily. x glimepiride (AMARYL) 4 mg tablet Take 4 mg by mouth daily. x insulin detemir U-100 (LEVEMIR U-100 INSULIN) 100 unit/mL injection Inject into the skin at bedtime. Patient not taking: Reported on 05/02/2022 Not Taking at Unknown time ketOROLAC tromethamine (ACULAR LS) 0.4 % drops Place 1 Drop into the right eye 4 times daily. metFORMIN (GLUCOPHAGE) 1,000 mg tablet Take 1,000 mg by mouth 2 times daily. moxifloxacin (VIGAMOX) 0.5 % ophthalmic solution Place 1 Drop into the right eye 4 times daily. prednisoLONE (PRED FORTE) 1 % ophthalmic suspension Place 1 Drop into the right eye 4 times daily. tadalafiL (CIALIS) 10 mg tablet Take 10 mg by mouth daily. x valsartan (DIOVAN) 40 mg tablet Take 40 mg by mouth 2 times daily. x Pt is only taking gabapentin in the evenings, noted on medication list. documented in this encounter Plan of Treatment Scheduled Referrals Name Type Priority Associated Diagnoses Order Schedule PROVIDER FOLLOW-UP INSTRUCTIONS Outpatient Referral Routine/Next Available Ordered: 05/03/2022 documented as of this encounter Procedures Procedure Name Priority Date/Time Associated Diagnosis Comments PROCEDURE REPORTS - SCANNED 05/16/2022 10:44 EDT ECG REPORT - SCANNED 05/07/2022 9:47 EDT POCT GLUCOSE, INTERFACED Routine 05/03/2022 12:36 EDT EXTRACTION, CATARACT, EXTRACAPSULAR, WITH IOL INSERTION 05/03/2022 11:22 EDT Combined forms of age-related cataract of right eye Special Needs ORA - Toric IOL POCT GLUCOSE, INTERFACED Routine 05/03/2022 11:05 EDT documented in this encounter Results * PROCEDURE REPORTS - SCANNED (05/16/2022 10:44 EDT) 05/16/2022 10:4 4 EDT Scan 2 Case Worker PROCEDURE/MINOR [place]EXA GICAL ORDERABLES * ECG REPORT - SCANNED (05/07/2022 9:47 EDT) 05/07/2022 9:47 EDT Scan 2 Case Worker PROCEDURE/MINOR [place]A GICAL ORDERABLES * (ABNORMAL) POCT GLUCOSE, INTERFACED (05/03/2022 12:36 EDT) Glucose, POC 145(H) 70 - 100 mg/dL 05/03/2022 13:[address] [facility] HN LAB POC COMMENT (GLUCOSE) Test Performed in DSCU 05/03/2022 13:[address] [facility] Blood CAPILLARY BLOOD / Unknown 05/03/2022 12:36 EDT 05/03/2022 13:45 EDT Ezequiel Andrea MD POINT OF CARE TEST Yoel GRANGER Performing Organization Address [facility] Co de Phone Number [facility] [address] [place] [address] * (ABNORMAL) POCT GLUCOSE, INTERFACED (05/03/2022 11:05 EDT) Glucose, POC 169(H) 70 - 100 mg/dL 05/03/2022 11:[address] [facility] HN LAB POC COMMENT (GLUCOSE) Test Performed in SDS 05/03/2022 11:[address] [facility] Blood CAPILLARY BLOOD / Unknown 05/03/2022 11:05 EDT 05/03/2022 11:07 EDT Ezequiel Andrea MD POINT OF CARE TEST O ELKIN Performing Organization Address City/[facility]/ZIP Co de Phone Number [facility] [address] [place] [address] documented in this encounter Visit Diagnoses Diagnosis Combined forms of age-related cataract of right eye- Primary Other and combined forms of senile cataract documented in this encounter Admitting Diagnoses Diagnosis Combined forms of age-related cataract of right eye Other and combined forms of senile cataract documented in this encounter Administered Medications Inactive Administered Medications - up to 3 most recent administrations Medication Order MAR Action Action Date Dose Rate Site acetaminophen (TYLENOL) tablet 975 mg 975 mg, oral, Once (Without Time Specified), Starting on Fri05/03/22 at 1220, Until Fri05/03/22 at 1357, Routine, Recovery (only) ketOROLAC (ACULAR) 0.5 % ophthalmic solution 1 Drop 1 Drop, right eye, PRE-OP MULTIPLE, 3 doses, Starting on Fri05/03/22 at 1027, Until Fri05/03/22 at 1107, for cataract pre-procedure, follow admin instructions, Routine, Preprocedure Given 05/03/2022 11:07 EDT 1 Drop Given 05/03/2022 10:56 EDT 1 Drop Given 05/03/2022 10:43 EDT 1 Drop moxifloxacin (VIGAMOX) 0.5 % ophthalmic solution 1 Drop 1 Drop, right eye, PRE-OP MULTIPLE, 3 doses, Starting on Fri05/03/22 at 1027, Until Fri05/03/22 at 1122, Other, for cataract pre-procedure, follow admin instructions, Routine, Preprocedure Given 05/03/2022 11:22 EDT 1 Drop Given 05/03/2022 11:15 EDT 1 Drop Given 05/03/2022 11:13 EDT 1 Drop ondansetron (PF) (ZOFRAN) injection 4 mg 4 mg, intravenous, ONCE PRN, 1 dose, Starting on Fri05/03/22 at 1220, Until Fri05/03/22 at 1357, Nausea, Routine, Recovery (only) phenylephrine (MYDFRIN) 2.5 % ophthalmic solution 1 Drop 1 Drop, right eye, PRE-OP MULTIPLE, 3 doses, Starting on Fri05/03/22 at 1027, Until Fri05/03/22 at 1101, Other, for cataract pre-procedure, follow admin instructions, Routine, Preprocedure Given 05/03/2022 11:01 EDT 1 Drop Given 05/03/2022 10:53 EDT 1 Drop Given 05/03/2022 10:39 EDT 1 Drop sodium chloride 0.9 % (flush) flush 5 mL 5 mL, intravenous, EVERY 8 HOURS, First dose on Fri05/03/22 at 1045, Until Discontinued, Routine, Preprocedure tropicamide (MYDRIACYL) 1 % ophthalmic solution 1 Drop 1 Drop, right eye, PRE-OP MULTIPLE, 3 doses, Starting on Fri05/03/22 at 1027, Until Fri05/03/22 at 1058, Other, for cataract pre-procedure, follow admin instructions, Routine, Preprocedure Given 05/03/2022 10:58 EDT 1 Drop Given 05/03/2022 10:51 EDT 1 Drop Given 05/03/2022 10:30 EDT 1 Drop documented in this encounter Active and Recently Administered Medications Times are shown in EDT. Scheduled Medication Order 05/01/2022 05/02/2022 05/03/2022 acetaminophen (TYLENOL) tablet 975 mg 975 mg, oral, Once (Without Time Specified), Starting on Fri05/03/22 at 1220, Until Fri05/03/22 at 1357, Routine, Recovery (only) lidocaine 1% + phenylephrine 1% intracameral syringe (COMPLETED) 0.8 mL, intracameral, INTRA-OP ONCE, 1 dose, On Fri05/03/22 at 1230, Routine, Intraprocedure 1208 (Given - Provid er: Ezequiel Andrea MD)1230 (Due) moxifloxacin intracameral syringe 1.5 mg/0.3 mL (COMPLETED) 1.5 mg, intracameral, INTRA-OP ONCE, 1 dose, On Fri05/03/22 at 1230, Routine, Intraprocedure 1208 (Given - Provid er: Ezequiel Andrea MD)1230 (Due) sodium chloride 0.9 % (flush) flush 5 mL(Linked Group 1) 5 mL, intravenous, EVERY 8 HOURS, First dose on Fri05/03/22 at 1045, Until Discontinued, Routine, Preprocedure 1045 (Canceled Entry - Provider: Batch Job User Admin - Comment: Automatically canceled at discontinue of medication order) PRN Medication Order 05/01/2022 05/02/2022 05/03/2022 balanced salt solution inrrigation solution (BSS PLUS) 500 mL, EPINEPHrine HCl (PF) (ADRENALIN) 0.3 mL irrigation (CANCELED) PRN, Starting on Fri05/03/22 at 1148, Until Fri05/03/22 at 1214, Routine, Intraprocedure 1148 (Given - Provid er: Ezequiel Andrea MD) balanced salts (BSS) ophthalmic solution (CANCELED) PRN, Starting on Fri05/03/22 at 1149, Until Fri05/03/22 at 1214, Routine, Intraprocedure 1149 (Given - Provid er: Ezequiel Andrea MD) chondroitin-sodium hyaluronate (VISCOAT) ophthalmic solution (CANCELED) PRN, Starting on Fri05/03/22 at 1206, Until Fri05/03/22 at 1214, Routine, Intraprocedure 1206 (Given - Provid er: Ezequiel Andrea MD) ketOROLAC (ACULAR) 0.5 % ophthalmic solution 1 Drop (COMPLETED) 1 Drop, right eye, PRE-OP MULTIPLE, 3 doses, Starting on Fri05/03/22 at 1027, Until Fri05/03/22 at 1107, for cataract pre-procedure, follow admin instructions, Routine, Preprocedure 1043 (Given - Provid er: Francisca Rosas RN)1056 (Given - Provider: Francisca Rosas RN)1107 (Given - Provider: Francisca Rosas RN) lidocaine (PF) 20 mg/mL (2 %) injection (CANCELED) PRN, Starting on Fri05/03/22 at 1148, Until Fri05/03/22 at 1214, Routine, Intraprocedure 1148 (Given - Provid er: Ezequiel Andrea MD) moxifloxacin (VIGAMOX) 0.5 % ophthalmic solution 1 Drop (COMPLETED) 1 Drop, right eye, PRE-OP MULTIPLE, 3 doses, Starting on Fri05/03/22 at 1027, Until Fri05/03/22 at 1122, Other, for cataract pre-procedure, follow admin instructions, Routine, Preprocedure 1113 (Given - Provid er: Francisca Rosas RN)1115 (Given - Provider: Francisca Rosas RN)1122 (Given - Provider: Francisca Rosas RN) ondansetron (PF) (ZOFRAN) injection 4 mg 4 mg, intravenous, ONCE PRN, 1 dose, Starting on Fri05/03/22 at 1220, Until Fri05/03/22 at 1357, Nausea, Routine, Recovery (only) phenylephrine (MYDFRIN) 2.5 % ophthalmic solution 1 Drop (COMPLETED) 1 Drop, right eye, PRE-OP MULTIPLE, 3 doses, Starting on Fri05/03/22 at 1027, Until Fri05/03/22 at 1101, Other, for cataract pre-procedure, follow admin instructions, Routine, Preprocedure 1039 (Given - Provid er: Francisca Rosas RN)1053 (Given - Provider: Francisca Rosas RN)1101 (Given - Provider: Francisca Rosas RN) povidone-iodine 5 % ophthalmic solution (CANCELED) PRN, Starting on Fri05/03/22 at 1148, Until Fri05/03/22 at 1214, Routine, Intraprocedure 1148 (Given - Provid er: Ezequiel Andrea MD) sodium hyaluronate (HEALON) ophthalmic injection (CANCELED) PRN, Starting on Fri05/03/22 at 1206, Until Fri05/03/22 at 1214, Routine, Intraprocedure 1206 (Given - Provid er: Ezequiel Andrea MD) tetracaine (PONTOCAINE) 0.5 % ophthalmic solution (CANCELED) PRN, Starting on Fri05/03/22 at 1207, Until Fri05/03/22 at 1214, Routine, Intraprocedure 1207 (Given - Provid er: Ezequiel Andrea MD) tropicamide (MYDRIACYL) 1 % ophthalmic solution 1 Drop (COMPLETED) 1 Drop, right eye, PRE-OP MULTIPLE, 3 doses, Starting on Fri05/03/22 at 1027, Until Fri05/03/22 at 1058, Other, for cataract pre-procedure, follow admin instructions, Routine, Preprocedure 1030 (Given - Provid er: Francisca Rosas RN)1051 (Given - Provider: Francisca Rosas RN)1058 (Given - Provider: Francisca Rosas RN) Linked Groups Order Group 1: Insert Saline Lock (CANCELED) Routine, ONE TIME, On Fri05/03/22 at 1030, For 1 occurrence, Preprocedure And sodium chloride 0.9 % (flush) flush 5 mLJump to med 5 mL, intravenous, EVERY 8 HOURS, First dose on Fri05/03/22 at 1045, Until Discontinued, Routine, Preprocedure documented in this encounter Orders Medications Ordered That Kyle ht Not Have Been Administered Count Last Ordered Date First Ordered Date acetaminophen (TYLENOL) tablet 975 mg 1 balanced salt solution inrri gation solution (BSS PLUS) 500 mL, EPINEPHrine HCl (PF) (ADRENALIN) 0.3 mL irrigation 1 05/03/2022 balanced salts (BSS) ophthalmic solution 1 05/03/2022 chondroitin-sodium hyalurona te (VISCOAT) ophthalmic solution 1 05/03/2022 lidocaine (PF) 20 mg/mL (2 %) injection 1 0 05/03/2022 lidocaine 1% + phenylephrine 1% intracameral syringe 1 05/03/2022 moxifloxacin intracameral sy ringe 1.5 mg/0.3 mL 1 05/03/2022 ondansetron (PF) (ZOFRAN) injection 4 mg 1 05/03/2022 povidone-iodine 5 % ophthalmic solution 1 0 05/03/2022 sodium chloride 0.9 % (flush) flush 5 mL 1 05/03/2022 sodium hyaluronate (HEALON) ophthalmic injection 1 05/03/2022 tetracaine (PONTOCAINE) 0.5 % ophthalmic solution 1 05/03/2022 Nursing Count Last Ordered Date First Orde red Date ACTIVITY INSTRUCTIONS 2 05/03/2022 BATHING INSTRUCTIONS 1 05/03/2022 WOUND CARE INSTRUCTIONS 1 05/03/2022 Discharge Count Last Ordered Date First Orde red Date DISCHARGE PATIENT 1 05/03/2022 documented in this encounter Care Teams Security Ambassador Relationship Specialty Start Date End Date Ramiro Cardenas MD [address] [place] [address] PCP - General 04/24/09 documented as of this encounter
--- OUTSIDE RECORDS SUMMARY | 2024-05-21 01:06 | XMS_ITS | Encounter Summary ---
Author Organization [facility] Address [address] [place] [address] Care Team Providers Care Railroad Watchman Name Role Phone Ramiro Cardenas MD Primary Care Provider [phone] Encounter Details Date Type Department Care Team (Latest Contact Info) Description 02/26/2022 Prep for Procedure [facility] Ophthalmology [facility] [address] [place], [place] [id number] Ezequiel Andrea MD [address] [place] [phone] Combined forms of age-related cataract of left eye (Primary Dx) Social History Tobacco Use Types Packs/Day Years Used Date Smoking Tobacco: Never Smokeless Tobacco: Never Sex and Gender Information Value Date Recorded Sex Assigned at Not on file Gender Identity Male 05/03/2022 9:53 EDT Sexual Orientation Not on file documented as of this encounter Plan of Treatment Not on file documented as of this encounter Visit Diagnoses Diagnosis Combined forms of age-related cataract of left eye- Primary Other and combined forms of senile cataract documented in this encounter Orders Case Request Count Last Ordered Date First Orde red Date CASE REQUEST OPERATING ROOM 1 02/27/2022 documented in this encounter Care Teams Railroad Watchman Relationship Specialty Start Date End Date Ramiro Cardenas MD [address] [place], [place] [id number] PCP - General 04/24/09 documented as of this encounter
--- OUTSIDE RECORDS SUMMARY | 2024-05-21 01:06 | XMS_ITS | Encounter Summary ---
Author Organization [facility] Address [address] [place] [address] Care Team Providers Care Research Group Director Name Role Phone Ramiro Cardenas MD Primary Care Provider [phone] Reason for Visit * Reason Onset Date Comments Post-OP Follow Up 05/16/2022 POW#1 CE PCIOL , left eye Encounter Details Date Type Department Care Team (Latest Contact Info) Description 05/16/2022 9:15 EDT Post-op Visit [facility] Ophthalmology [facility] [address] [place] [address] Ezequiel Andrea MD [address] [place] [phone] Cataract extraction status of eye, left (Primary Dx) Social History Tobacco Use Types [...] 10:06 EDT documented as of this encounter Patient Instructions * Patient Instructions* Ezequiel Andrea MD - 05/16/2022 9:15 EDT Stop Moxifloxacin (shi cap), left eye Stop Ketorolac (vu cap), right eye You may stop wearing shield at night Continue with Prednisolone (both eyes) and Ketorolac (left eye) as written on eye drop schedule. documented in this encounter Progress Notes * Ezequiel Andrea MD - 05/16/2022 0915 EDT Chief Complaint: Pseudophakia, Cataract Post-Op Week 1, left eye, HPI The patient is a 46 y.o. male, POW #1 s/p CE/PCIOL, left eye. Patient denies eye pain and has used drops as instructed. Location: Left eye Pain: 0 - No pain Quality: Severity: Mild Duration: Days Timing: Lasts: Context: POW#1 CE PCIOL, left eye (05/10/22) Also s/p CE PCIOL, right eye 05/03/22- using drops as directed in both eyes Modifying factors: VA is good- no eye pain. Associated Signs & Symptoms: Visual Fluctuations: None Attestation: Base Eye Exam Visual Acuity (Snellen - Linear) Right Left Dist sc 20/25 +2 20/25 +2 Tonometry (Applanation, 9:51) Right Left Pressure 10 12 Pupils Pupils Right PERRL Left PERRL Neuro/Psych Oriented x3: Yes Mood/Affect: Normal Slit Lamp and Fundus Exam External Exam Right Left External Normal Normal Slit Lamp Exam Right Left Lids/Lashes Normal Normal Conjunctiva/Sclera White and quiet White and quiet Cornea sealed incisions sealed incisions Anterior Chamber deep, rare Cell deep, Trace Cell Iris Round and reactive Round and reactive Lens Toric posterior chamber intraocular lens at 102 degrees Toric posterior chamber intraocular lens at 80 degrees Fundus Exam Right Left Disc clear view to posterior pole clear view to posterior pole Refraction Manifest Refraction (Auto) Sphere Cylinder [place] Right -0.25 +0.25 175 Left -0.25 +0.25 143 IMPRESSION & PLAN: POW #1 s/p CE/PCIOL (toric), left eye -patient is doing well -D/C Moxifloxacin -Continue ketorolac QID until bottle runs out -Taper PF TID X 1 week, BID X 1 week (according to drop schedule given) -Warnings and precautions discussed POW # 2 s/p CE/IOL (toric), right eye -patient is doing well -continue to use ketorolac to QID until bottle is empty -taper PF according to schedule I have reviewed the patient's past medical, family, social and surgical history. I have also reviewed the patient's medications, allergies, and problem list. I performed my own HPI and have reviewed the tech's ROS as well. I personally completed this exam myself. Ezequiel Andrea MD documented in this encounter Plan of Treatment Not on file documented as of this encounter Visit Diagnoses Diagnosis Cataract extraction status of eye, left- Primary documented in this encounter Eye Exam Visual Acuity (Snellen - Linear) Right eye Left eye Dist sc 20/25 +2 20/25 +2 Tonometry (Applanation, 9:51) Right eye Left eye Pressure 10 12 Pupils Pupils Right eye PERRL Left eye PERRL Neuro/Psych Oriented x3: Yes Mood/Affect: Normal External Exam Right eye Left eye External Normal Normal Slit Lamp Exam Right eye Left eye Lids/Lashes Normal Normal Conjunctiva/Sclera White and quiet White and gaetano et Cornea sealed incisions sealed incision s Anterior Chamber deep, rare Cell deep, Trace Ariana l Iris Round and reactive Round and france ctive Lens Toric posterior tamiko valdez intraocular lens at 102 degrees Toric posterior chamber intraocular lens at 80 degrees Fundus Exam Right eye Left eye Disc clear view to posterior pole olamide ar view to posterior pole Manifest Refraction (Auto) Sphere Cylinder [place] Right eye -0.25 +0.25 175 Left eye -0.25 +0.25 143 Care Teams Research Group Director Relationship Specialty Start Date End Date Ramiro Cardenas MD [address] [place] [address] PCP - General 04/24/09 documented as of this encounter
--- OUTSIDE RECORDS SUMMARY | 2024-05-21 01:06 | XMS_ITS | Encounter Summary ---
Author Organization [facility] Address [address] [place] [address] Care Team Providers Care Assistant Import Manager Name Role Phone Ramiro Cardenas MD Primary Care Provider [phone] Encounter Details Date Type Department Care Team (Late st Contact Info) Description 12/05/2022 Lab Requisition [facility] Pathology & Laboratory Medicine - [facility] [address] [place] [address] Mac Delacruz MD [address] [place] [address], [address] [place], [place] [id number] Calculus of ureter; Other diseases of stomach and duodenum Social History Tobacco Use Types Packs/Day Years [...] on file documented as of this encounter Procedures Procedure Name Priority Date/Time Associated Diagnosis Comments SURGICAL PATHOLOGY Today 12/05/2022 10 :22 EDT Calculus of ureter Other diseases of stomach and duodenum documented in this encounter Results * SURGICAL PATHOLOGY (12/05/2022 10:22 EDT) Note to Patient The following pathology results have been interpreted by your pathologist and may be available to you before your health provider has had the opportunity to review them. Please allow time for your provider to receive these results and explore management options, if applicable. 12/09/2022 8:38 [facility] Final Diagnosis A. DUODENUM, POLYP, BIOPSY: - Tubulovillous adenoma. - Negative for malignancy. B. COLON, 75 CMS, POLYP, BIOPSY: - Tubular adenoma. 12/09/2022 8:38 [facility] Attestation By the signature below, the attending physician certifies that they have 1) personally conducted a gross and/or microscopic examination of the described specimen(s), and/or personally interpreted the results of laboratory testing of the described specimen(s), and 2) personally rendered or confirmed the above diagnosis. 12/09/2022 8:38 [facility] at 0838 Clinical History Duodenal nodule, colon cancer screen 12/09/2022 8:38 [facility] Gross Description A. Received in formalin labelled with proper patient identification (initials O, S) and 1. Duodenal polyp is a single shi polypoid tissue (0.6 x 0.5 x 0.5 cm). Bisected and entirely submitted in A1. B. Received in formalin labelled with proper patient identification (initials O, S) and 2. Colon polyp at 75 cm is a single shi-brown polypoid tissue (0.3 x 0.2 x 0.2 cm). Submitted intact in B1. Katelynn Janie 12/06/2022 7:54 12/09/2022 8:38 [facility] Performing Lab [facility] 12/09/2022 8:38 [facility] Scanned Images 12/09/2022 8:38 [facility] Tissue ENTIRE COLON / Unknown 12/05/2022 10:22 EDT 12/05/2022 17:58 EDT Tissue specimen (specimen) COLON STRUCTURE / Unknown 12/05/2022 10:22 EDT 12/05/2022 17:58 EDT Mac Delacruz MD PATHOLOGY ORDERABLES [facility] [address] [place] [address] documented in this encounter Visit Diagnoses Diagnosis Calculus of ureter Other diseases of stomach and duodenum documented in this encounter Care Teams Assistant Import Manager Relationship Specialty Start Date End Date Ramiro Cardenas MD [address] [place], [place] [id number] PCP - General 04/24/09 documented as of this encounter
--- OUTSIDE RECORDS SUMMARY | 2024-05-21 01:06 | XMS_ITS | Encounter Summary ---
Author Organization [facility] Address [address] [place] [address] Care Team Providers Care Shipfitters Supervisor Name Role Phone Ramiro Cardenas MD Primary Care Provider [phone] Reason for Referral * Specialty Diagnoses / Procedures Referred By Janak holland Referred To Contact Ezequiel Andrea MD [address] [place] [id number] Referral ID Status Reason Start Date Expiration [...] age-related cataract of left eye [H25.812] Procedures NC XCAPSL CTRC RMVL INSJ IO LENS PROSTH W/O ECP EXTRACTION, CATARACT, EXTRACAPSULAR, WITH IOL INSERTION ORA - Toric Referral ID Status Reason Start Date Expiration Date Visits Re quested Visits Authorized [id number] 1 1 Encounter Details Date Type Department Care Team (Latest Contact Info) Description 05/10/2022 9:45 EDT - 05/10/2022 12:28 EDT Hospital Encounter [facility] Operating Room [address] [place] [address] Ezequiel Andrea MD [address] [place] [phone] Discharge Disposition: Home or Self Care [...] Sign Reading Time Taken Comments Blood Pressure 142/97 05/10/2022 1221 EDT Pulse - - Temperature 36.4 ??C (97.6 ??F) 05/10/2022 1221 EDT Respiratory Rate 15 05/10/2022 1221 EDT Oxygen Saturation 96% 05/10/2022 1221 EDT Inhaled Oxygen Concentration - - Weight [...] not hesitate to call the office at [phone]. documented in this encounter Medications at Time [...] 30 days of this Procedure (scanned from ) has been reviewed and the clinically appropriate [...] Toric (L) Operative Note Date: 05/10/2022 [place] [facility] [place] Name: Charles Nick, : 1975, PREOPERATIVE [...] D, left eye. SURGEON: Ezequiel Andrea MD QUALITY ASSURANCE INSPECTOR: DANIELA Lyn ANESTHESIA: Topical and MAC ESTIMATED [...] no complications. The patient returned to the [facility] care [facility] area alert and in good condition. * Preprocedure Instructions - Nahomi Zuniga RN - 05/07/2022 0574 EDT Charles Nick has been instructed as [...] 9:23 EDT) 05/28/2022 9:23 EDT Scan 2 Import Export Clerk PROCEDURE/MINOR LEXA GICAL ORDERABLES * ECG REPORT - SCANNED (05/14/2022 8:14 EDT) 05/14/2022 8:14 EDT Scan 2 Import Export Clerk PROCEDURE/MINOR LEXA GICAL ORDERABLES documented in this [...] MAR Action Action Date Dose Rate Site glycopyrrolate (ROBINUL) injection 0.2 mg 0.2 mg, [...] Drop Given 05/10/2022 10:35 EDT 1 Drop ondansetron (PF) (ZOFRAN) injection [...] Drop Given 05/10/2022 10:13 EDT 1 Drop scopolamine (TRANSDERM-SCOP) 1 mg over 3 days patch 1 Patch 1 Patch, transdermal, Administer over 72 Hours, ONCE PRN, 1 dose, Starting on Fri05/10/22 at 1153, Until Fri05/10/22 at 1408, Routine, Recovery (only) sodium chloride 0.9 % (flush) flush 5 mL 5 mL, intravenous, EVERY 8 HOURS, First dose on Fri05/10/22 at 1030, Until Discontinued, Routine, Preprocedure tropicamide (MYDRIACYL) 1 [...] Francisca Rosas RN)1032 (Given - Provider: Francisca Rosas, RN) lactated ringers BOLUS 500 mL 500 [...] Count Last Ordered Date First Ordered Date balanced salt solution inrri gation solution (BSS PLUS) 500 mL, EPINEPHrine HCl (PF) (ADRENALIN) 0.3 mL irrigation 1 05/10/2022 balanced salts (BSS) ophthalmic solution 1 05/10/2022 chondroitin-sodium hyalurona te (VISCOAT) ophthalmic solution 1 05/10/2022 glycopyrrolate (ROBINUL) injection 0.2 mg 1 05/10/2022 lactated ringers BOLUS 500 mL 1 05/10/2022 lidocaine 1% + phenylephrine 1% intracameral syringe 1 05/10/2022 moxifloxacin intracameral sy ringe 1.5 mg/0.3 mL 05/10/2022 ondansetron (PF) (ZOFRAN) injection 4 mg 1 05/10/2022 povidone-iodine 5 % ophthalmic solution 1 0 05/10/2022 scopolamine (TRANSDERM-SCOP) 1 mg over 3 days patch 1 Patch 1 05/10/2022 sodium chloride 0.9 % (flush) flush 5 mL 1 05/10/2022 sodium hyaluronate (HEALON) ophthalmic injection 1 05/10/2022 tetracaine (PONTOCAINE) 0.5 % ophthalmic solution 1 05/10/2022 Nursing Count Last Ordered Date First Orde red Date ACTIVITY INSTRUCTIONS 2 05/10/2022 BATHING INSTRUCTIONS 1 05/10/2022 WOUND CARE INSTRUCTIONS 1 05/10/2022 Discharge Count Last Ordered Date First Orde red Date DISCHARGE PATIENT 1 05/10/2022 documented in this encounter Care Teams Shipfitters Supervisor Relationship Specialty Start Date End Date Ramiro Cardenas MD [address] [place] [address] PCP - General 04/24/09 documented as of this encounter
--- OUTSIDE RECORDS SUMMARY | 2024-05-21 01:06 | XMS_ITS | Encounter Summary ---
Author Organization [facility] Address [address] [place] [address] Care Team Providers Care Mechanical Service Specialist Name Role Phone Ramiro Cardenas MD Primary Care Provider [phone] Reason for Visit * Reason Onset Date Comments Appointment Related 12/28/2021 Encounter Details Date Type Department Care Team (Late st Contact Info) Description 12/28/2021 Telephone [facility] [address] [place], [place] [id number] Ezequiel Andrea MD [address] [place] [phone] Appointment Related Social History Tobacco Use Types Packs/Day Years Used Date Smoking Tobacco: Never Assessed Sex and Gender Information Value Date Recorded Sex Assigned at Not on file Gender Identity Male 05/03/2022 9:53 EDT Sexual Orientation Not on file documented as of this encounter Miscellaneous Notes * Telephone Encounter - Espinoza, Jesika - 12/28/2021 1044 EDT Tried to leave a msg on home and work and contact numbers. No answer on any. Home number is incorrect need to reschedule appt. documented in this encounter Plan of Treatment Not on file documented as of this encounter Visit Diagnoses Not on filedocumented in this encounter Care Teams Mechanical Service Specialist Relationship Specialty Start Date End Date Ramiro Cardenas MD [address] [place], [place] [phone] PCP - General 04/24/09 documented as of this encounter
--- OUTSIDE RECORDS SUMMARY | 2024-05-21 01:06 | XMS_ITS | Encounter Summary ---
Author Organization [facility] Address [address] [place] [address] Care Team Providers Care Heating Worker Name Role Phone Ramiro Cardenas MD Primary Care Provider [phone] Reason for Visit * Reason Comments Post-OP Follow Up Same day post op Cat aract surgery - Left eye Encounter Details Date Type Department Care Team (Latest Contact Info) Description 05/10/2022 13:30 EDT Post-op Visit [facility] Ophthalmology [facility] [address] [place], [place] [id number] Ezequiel Andrea MD [address] [place] [phone] Cataract extraction status of eye, left (Primary [...] 10:06 EDT documented as of this encounter Progress Notes * Ezeqiuel Andrea MD - 05/10/2022 1330 EDT Chief Complaint: Pseudophakia, Cataract Post-Op Day 0, left eye HPI The patient is a 46 y.o. male, POD #0 s/p cataract extraction with PCIOL, left eye. There is no pain. HPI Location: Pain: 0 - No pain Quality: Severity: Duration: Timing: Lasts: Context: Same day post op Cataract sugery - Left eye. He reports no pain in the eye. I gave him 1 drop of Prednisolone, Ketorolac and Moxifloxacin in Left eye. Modifying factors: Associated Signs & Symptoms: Visual Fluctuations: None Attestation: Base Eye Exam Visual Acuity (Snellen - Linear) Right Left Dist sc 20/40 -2 Dist ph sc NI Tonometry (Applanation, 14:17) Right Left Pressure 21 Neuro/Psych Oriented x3: Yes Mood/Affect: Normal Slit Lamp and Fundus Exam External Exam Right Left External Normal Normal Slit Lamp Exam Right Left Lids/Lashes Normal Normal Conjunctiva/Sclera White and quiet White and quiet Cornea sealed incisions, trace Edema over the incision sealed incisions, trace Edema, 1+ Punctate epithelial erosions Anterior Chamber deep, trace Cell deep, 2+ Cell Iris Round and reactive Dilated Lens Toric posterior chamber intraocular lens at 102 degrees Toric posterior chamber intraocular lens at 80 degrees Fundus Exam Right Left Disc clear view to posterior pole slightly hazy view to posterior pole IMPRESSION & PLAN: POD #0 s/p Cataract Extraction with toric PCIOL, left eye -patient is doing well -Use Moxifloxacin, ketorolac and Prednisolone QID (drop schedule given) -continue to wear plastic shield over eye at night for 1 week -Warnings and precautions discussed -RTC 1 week or sooner PRN eye redness/pain or worsening vision I have reviewed the patient's past medical, [...] Linear) Right eye Left eye Dist sc 20/40 -2 Dist ph sc NI Tonometry (Applanation, 14:17) Right eye Left eye Pressure 21 Neuro/Psych Oriented x3: Yes Mood/Affect: Normal External Exam Right eye Left eye External Normal Normal Slit Lamp Exam Right eye Left eye Lids/Lashes Normal Normal Conjunctiva/Sclera White and quiet White and gaetano et Cornea sealed incisions, tr elida Edema over the incision sealed incisions, trace Edema, 1+ Punctate epithelial erosions Anterior Chamber deep, trace Cell deep, 2+ Cell Iris Round and reactive Dilated Lens Toric posterior tamiko valdez intraocular lens at 102 degrees Toric posterior chamber intraocular lens at 80 degrees Fundus Exam Right eye Left eye Disc clear view to posterior pole sli ghtly hazy view to posterior pole Care Teams Heating Worker Relationship Specialty Start Date End Date Ramiro Cardenas MD [address] [place] [address] PCP - General 04/24/09 documented as of this encounter
--- OUTSIDE RECORDS SUMMARY | 2024-05-21 01:06 | XMS_ITS | Encounter Summary ---
Author Organization 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) Social History Tobacco Use Types Packs/Day Years Used Date Smoking Tobacco: Never Smokeless Tobacco: Never Sex and Gender Information Value Date Recorded Sex Assigned at Not on file Gender Identity Male 05/03/2022 9:53 EDT Sexual Orientation Not on file documented as of this encounter Progress Notes * Ezequiel Andrea MD - 04/03/2022 1538 EDT Left Eye Lens Calc w/o IOL Biometry Optical Coherence Biometry Calculations Date of original biometry: 02/27/22 Read date: 04/09/22 Indicated eye: the left eye Procedure date: 05/10/22 Procedure location: [facility] Lens type: SN6AT5 Lens power: 18.5 Electronically Signed: Ezequiel Andrea MD 04/09/22 documented in this encounter Plan of Treatment Not on file documented as of this encounter Procedures Procedure Name Priority Date/Time Associated Diagnosis Comments LEFT EYE LENS CALC W/O IOL BIOMETRY Routine 04/09/2022 17:02 EDT Combined forms of age-related cataract of left eye documented in this encounter Results * LEFT EYE LENS CALC W/O IOL BIOMETRY (04/09/2022 17:02 EDT) [facility]ative [facility] - 04/09/2022 17:02 EDT Optical Coherence Biometry Calculations Date of original biometry: 02/27/22 Read date: 04/09/22 Indicated eye: the left eye Procedure date: 05/10/22 Procedure location: [facility] Lens type: SN6AT5 ?? Lens power: 18.5 Electronically Signed: Ezequiel Andrea MD 04/09/22 Ezequiel Andrea MD [facility] documented in this encounter Visit Diagnoses Diagnosis Combined forms of age-related cataract of left eye- Primary Other and combined forms of senile cataract documented in this encounter Care Teams Business Objects Relationship Specialty Start Date End Date Ramiro Cardenas MD [address] [place] [address] PCP - General 04/24/09 documented as of this encounter
--- OUTSIDE RECORDS SUMMARY | 2024-05-21 01:06 | XMS_ITS | Encounter Summary ---
Author Organization [facility] Address [address] [place] [address] Care Team Providers Care Cutter Grind Tool Technician Name Role Phone Ramiro Cardenas MD Primary Care Provider [phone] Encounter Details Date Type Department Care Team (Latest Contact Info) Description 05/02/2022 Travel Social History Tobacco Use Types Packs/Day [...] suspected to have Coronavirus/COVID-19? No / Unsure 05/02/2022 9:17 EDT documented as of this encounter Plan of Treatment Not on file documented as of this encounter Visit Diagnoses Not on filedocumented in this encounter Care Teams Cutter Grind Tool Technician Relationship Specialty Start Date End Date Ramiro Cardenas MD [address] [place] [address] PCP - General 04/24/09 documented as of this encounter
--- OUTSIDE RECORDS SUMMARY | 2024-05-21 01:06 | XMS_ITS | Clinical Summary ---
Author Organization [facility] Address [address] [place] [address] Care Team Providers Care Profile Mill Operator Tape Control Name Role Phone Ramiro Cardenas MD Primary Care Provider [phone] Allergies Active Allergy Reactions Criticality Noted Date Comments Penicillins 02/13/2022 Medications Medication Sig Dispensed Refills Start Date End Date Status glimepiride (AMARYL) 4 mg tablet Take 4 mg by mouth daily. Active tadalafiL (CIALIS) 10 mg tablet Take 10 mg by mouth daily. Active valsartan (DIOVAN) 40 mg tablet Take 40 mg by mouth 2 times daily. Active furosemide (LASIX) 40 mg tablet Take 40 mg by mouth daily. Active insulin detemir U-100 (LEVEMIR U-100 INSULIN) 100 unit/mL injection Inject into the skin at bedtime. Active gabapentin (NEURONTIN) 600 mg tablet Take 600 mg by mouth 3 times daily. Active metFORMIN (GLUCOPHAGE) 1,000 mg tablet Take 1,000 mg by mouth 2 times daily. Active ketOROLAC tromethamine (ACULAR LS) 0.4 % dropsIndications:Combin ed forms of age-related cataract of right eye Place 1 Drop into the right eye 4 times daily. 5 mL 05/01/2022 Active prednisoLONE (PRED FORTE) 1 % ophthalmic suspensionIndications:C ombined forms of age-related cataract of right eye Place 1 Drop into the right eye 4 times daily. 5 mL 05/03/2022 Active moxifloxacin (VIGAMOX) 0.5 % ophthalmic solutionIndications:Com bined forms of age-related cataract of right eye Place 1 Drop into the right eye 4 times daily. 3 mL 05/03/2022 Active Active Problems Problem Noted Date Diagnosed Date Combined forms of age-related cataract of left e ye 02/27/2022 Overview: Added automatically from request for surgery [id number] Combined forms of age-related cataract of right eye 02/27/2022 Overview: Added automatically from request for surgery [id number] Encounters Date Type Department Care Team Description 02/26/2024 Lab Requisition [facility] Pathology & Laboratory Medicine - [address] [address] Outr Resulting Lab, Provider from Last 3 Months Surgical History Surgery Date Site/Laterality Comments CHOLECYSTECTOMY 09/15/2009 - 09/14/2010 N/A Medical History Medical History Date Comments 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 Social History Tobacco Use Types Packs/Day Years Used Date Smoking Tobacco: Never Smokeless Tobacco: Never Alcohol Use Standard Drinks/Week Comments Not Currently 0 (1 standard drink = 0.6 oz pur e alcohol) Sex and Gender Information Value Date Recorded Sex Assigned at Not on file Gender Identity Male 05/03/2022 9:53 EDT Sexual Orientation Not on file Obstetrics History Last Filed Vital Signs Vital Sign Reading [...] Body Mass Index 37.99 05/10/2022 1006 EDT Plan of Treatment Health Maintenance Due Date Last Done Comments Hepatitis C Screen 1975 Hepatitis B Vaccine (1 of - + 3-dose series) 12/17 COVID-19 Vaccine (2022- season) 2024 Medical Devices Implanted Type Area Oyster Washer Device Identifier Shelf Expiration Date Model / Serial / Lot Lens Intraocular Toric Astigmatism Correction Foldable +20.0d Acrysof Iq [id number] - [id number] Implanted:Qty: 1 on 05/03/2022 by Ezequiel Andrea MD at [facility] Lens Right: Eye [employer] 05/06/2026 [id number]. [id number] / [id number] / Lens Intraocular Toric Astigmatism Correction Foldable +18.5d Acrysof Iq [id number] - [id number] Implanted:Qty: 1 on 05/10/2022 by Ezequiel Andrea MD at [facility] Lens Left: Lens [employer] [id number]. [id number] / [id number] / Procedures Procedure Name Priority Date/Time Associated Diagnosis Comments CEA Routine 02/26/2024 9:00 EDT from Last 3 Months Results * CEA (02/26/2024 9:00 EDT) CEA 1.7 See Note ng/mL 02/26/2024 22:48 EDT [facility] Comment: % Distribution of CEA (ng/mL): ??0.0 - 2.5 in 98.2% of Nonsmokers and 87.3% of Smokers ??2.6 - 5 in 1.8% of Nonsmokers and 8% of Smokers ??5.1 - 10.1 in 4.7% of Smokers NOTE: Serum CEA concentration should not be interpeted as absolute evidence for the presence or absence of malignant disease. ?? Assayed on Siemens ADVIA Centaur XPT using chemiluminescent technology. ??Values obtained by different assay methods cannot be used interchangeably. Blood VENOUS BLOOD / Unknown 02/26/2024 9:00 EDT 02/26/2024 21:46 EDT Provider Outr Resulting Lab CHEMISTRY & BLOOD GAS ORDERABLES [facility] [address] [place] [address] from Last 3 Months Advance Directives For more information, please contact: [phone] * Full Code (Latest Code Status on File) Date Activated Date Inactivated Comments 05/10/2022 10:03 05/10/2022 14:29 Question Answer Comments When the patient has NO PULSE: Full Code / CPR Who Made the Decision? Default/Not Discussed * Full Code Date Activated Date Inactivated Comments 05/03/2022 10:27 05/03/2022 14:58 Question Answer Comments When the patient has NO PULSE: Full Code / CPR Who Made the Decision? Default/Not Discussed Care Teams Profile Mill Operator Tape Control Relationship Specialty Start Date End Date Ramiro Cardenas MD [address] [place] [address] PCP - General 04/24/09
--- OUTSIDE RECORDS SUMMARY | 2024-05-21 01:06 | XMS_ITS | Encounter Summary ---
Author Organization [facility] Address [address] [place] [address] Care Team Providers Care Insulator Cutter And Former Name Role Phone Ramiro Cardenas MD Primary Care Provider [phone] Encounter Details Date Type Department Care Team (Latest Contact Info) Description 05/10/2022 Travel Social History Tobacco Use Types Packs/Day [...] 10:06 EDT documented as of this encounter Plan of Treatment Not on file documented as of this encounter Visit Diagnoses Not on filedocumented in this encounter Care Teams Insulator Cutter And Former Relationship Specialty Start Date End Date Ramiro Cardenas MD [address] [place] [address] PCP - General 04/24/09 documented as of this encounter
--- OUTSIDE RECORDS SUMMARY | 2024-05-21 01:06 | XMS_ITS | Encounter Summary ---
Author Organization [facility] Address [address] [place] [address] Care Team Providers Care Geodesist Name Role Phone Ramiro Cardenas MD Primary Care Provider [phone] Reason for Visit * Auth/Cert Specialty Diagnoses / Procedures Referred By Janak holland Referred To Contact Diagnoses Combined forms of age-related cataract of left eye Combined forms of age-related cataract of left eye [H25.812] Procedures KS XCAPSL CTRC RMVL INSJ IO LENS PROSTH W/O ECP EXTRACTION, CATARACT, EXTRACAPSULAR, WITH IOL INSERTION ORA - Toric Referral ID Status Reason Start Date Expiration Date Visits Re quested Visits Authorized [id number] 1 1 Encounter Details Date Type Department Care Team (Late st Contact Info) Description 05/10/2022 11:12 EDT Anesthesia Event [facility] Operating Room [address] [place] [address] Rosangela Loving MD [address] [place] [phone] Angelita Ochoa CRNA [address] [place] [address] [place] [address] Anesthesia Record Procedure Summary Procedure Name Responsible Anesthesiologist Anesthesia Start Time Anesthesia Stop Time EXTRACTION, CATARACT, EXTRACAPSULAR, WITH IOL INSERTION ORA - Toric (Left: Eye) Rosangela Loving MD 05/10/22 1112 05/10/22 1154 Events Date Time Event Comment 05/10/2022 1112 An Start The patient was re-evaluated immediately before moderate or deep sedation use, before anesthesia induction, or before the anesthesia procedure. 1112 An Start Data 1112 Anesthesia Ready 1149 an stop data 1154 Handoff to RN I completed my handoff to the receiving nurse during which we: 1. Identified the patient 2. Identified the responsible provider 3. Reviewed the pertinent medical history 4. Discussed the surgical course 5. Reviewed intra-op anesthesia management and issues during anesthesia 6. Set expectations for post-procedure period 7. Allowed opportunity for questions and acknowledgement of understanding. 1154 An Stop Meds Name Total midazolam 1 mg/mL 2 mL vial 4 mg * Agents Name O2 N2O Air Aux O2 flow * Blood No blood administrations on file. Lines, Drains, and Airways Type Details Placement Removal Wound 05/03/22; 1147; [place]; Right; Eye; surgical incision; N 05/03/22 1147 by Jenelle Jordan, plumbing designer 05/10/22; 1124; [place]; Left; Eye; Surgical incision cataract extraction left eye 05/10/22 1124 by Georgie Butler, GRETCHEN Peripheral IV 05/10/22; 1052; 22; Left, Posterior; Hand; Inserted by RN (Ilana Ybarra RN); 3; Chlorhexidine; 05/10/22; 1221; No complications, Dressing applied 05/10/22 1052 by Francisca Rosas, GRETCHEN 05/10/22 1221 by Angelita Alford, GRETCHEN documented in this encounter Social History Tobacco [...] 10:06 EDT documented as of this encounter OR Notes * Anesthesia Postprocedure Evaluation - Rosangela Loving MD - 05/10/2022 1154 EDT Patient: Charles Nick Vital signs were reviewed with the recovery nurse. Complete vitals history is available in the Epicflowsheets.BP (!) 146/96 Temp 36.7 ??C (98.1 ??F) (Oral) Resp 18 Ht 188 cm (74.02) Wt (!) 134.3 kg (296 lb) SpO2 97% BMI 37.99 kg/m?? Last Pain Score - Numeric Pain Level (Scale 1-10): 0 Type of Anesthesia - MAC Anesthesia Post Evaluation Post-procedure vitals reviewed and are stable. 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 Underwent spontaneous remission without imunotherapy. Repeat biopsy in 2007 at [facility]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 . ?? Obesity. ?? Hypertension well controlled ?? DMII insulin-dependent. Variable control - states improved recently.. No evidence diabetic nephropathy. Neuropathy feet and hands without ulceration, Biltaeral cataracts, no retinopathy. identified complications ?? Obstructive sleep apnea: Uses CPAP with improvement tin daytime alertness and mood ?? Depression, anxiety Patient Medical History, including Anesthesia History reviewed. Chart and Nursing Notes reviewed, including NPO status and Medication History. Additional ROS/History Findings: No current facility-administered medications on file prior to encounter. Current Outpatient Medications on File Prior to Encounter Medication Sig Dispense Refill ??? furosemide (LASIX) 40 mg tablet Take 40 mg by mouth daily. ??? gabapentin (NEURONTIN) 600 mg tablet Take 600 mg by mouth 3 times daily. (Patient not taking: Reported on 05/03/2022) ??? glimepiride (AMARYL) 4 mg tablet Take 4 mg by mouth daily. ??? insulin detemir U-100 (LEVEMIR U-100 INSULIN) 100 unit/mL injection Inject into the skin at bedtime. (Patient not taking: Reported on 05/02/2022) ??? ketOROLAC tromethamine (ACULAR LS) 0.4 % drops Place 1 Drop into the right eye 4 times daily. 5mL 0 ??? metFORMIN (GLUCOPHAGE) 1,000 mg tablet Take 1,000 mg by mouth 2 times daily. ??? moxifloxacin (VIGAMOX) 0.5 % ophthalmic solution Place 1 Drop into the right eye 4 times daily.3 mL 0 ??? prednisoLONE (PRED FORTE) 1 % ophthalmic suspension Place 1 Drop into the right eye 4 times daily. 5 mL 0 ??? tadalafiL (CIALIS) 10 mg tablet Take 10 mg by mouth daily. ??? valsartan (DIOVAN) 40 mg tablet Take 40 mg by mouth 2 times daily. Current Facility-Administered Medications Medication Route Frequency ??? ketOROLAC (ACULAR) 0.5 % ophthalmic solution 1 Drop left eye PRE-OP MULTIPLE ??? lidocaine 1% + phenylephrine 1% intracameral syringe intracameral Intra-Op Once ??? moxifloxacin (VIGAMOX) 0.5 % ophthalmic solution 1 Drop left eye PRE-OP MULTIPLE ??? moxifloxacin intracameral syringe 1.5 mg/0.3 mL intracameral Intra-Op Once ??? phenylephrine (MYDFRIN) 2.5 % ophthalmic solution 1 Drop left eye PRE-OP MULTIPLE ??? sodium chloride 0.9 % (flush) flush 5 mL intravenous Q8H ??? tropicamide (MYDRIACYL) 1 % ophthalmic solution 1 Drop left eye PRE-OP MULTIPLE Allergies Allergen Reactions ??? Penicillins Past Medical History: Diagnosis Date ??? 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 CHOLECYSTECTOMY N/A 2009 Past Anesthetics [x] No history of complications from anesthesia [x] anesthesia records on file [x]No family history of allergic reactions to anesthesia Review of Systems Respiratory: JOSE Cardiovascular: HTN Genitourinary: Glomerulopathy Neurological: Positive for sensory change. Endo/Heme/Allergies: Dm Psychiatric/Behavioral: Positive for depression. The patient is nervous/anxious. SOCIAL HISTORY: Social History Tobacco Use Smoking Status Never Smoker Smokeless Tobacco Never Used Social History Substance and Sexual Activity Drug Use Never Social History Substance and Sexual Activity Alcohol Use Not Currently Lab Results Component Value Date GLUCOSEPOC 145 (H) 05/03/2022 No results found for: WBC, HGB, HCT, MCV, PLT No results found for: NA, K, KEXT, CL, CLEXT, CO2, CO2EXT No results found for: BUN No results found for: CREATININE, CREATININEEX No results found for: INR, PROTIME No results found for: PTT UPT: [] Patient declines test No results found for: PREGUR COVID: [] None on file No results found for: COVIDUV Blood Type: No results found for: ABO, LABRH, LABANTI, SPECEXP EKG: [] N/A ECHO: [] N/A Cardiac Stress: [] N/A There were no vitals taken for this visit. Pulse From Oximetry: -- Physical Exam Airway Mallampati: II TM distance: >3 FB Neck ROM: full Cardiovascular Rhythm: regular Rate: normal Dental (+) upper dentures Pulmonary - normal exam Abdominal (+) obese Anesthesia Plan ASA 3 Anesthesia Type - MAC Anesthesia plan and risks discussed. Informed consent obtained from patient. Specific risks discussed were , incomplete block, myocardial infarction, nerve damage, stroke,infection, nausea and vomiting. Code status discussed? Yes (full) The preoperative history and physical which was performed within 30 days of this procedure, has been reviewed and the clinically appropriate elements of the physical examination have been repeated. There are no changes to the documented history and physical or, if so, such changes are documented inthis note PAT Note Notes from 04/10/22 through 05/10/22 No notes of this type exist for this encounter. documented in this encounter Plan of Treatment Not on file documented as of this encounter Visit Diagnoses Not on filedocumented in this encounter Administered Medications Inactive Administered Medications - up to 3 most recent administrations Medication Order MAR Action Action Date Dose Rate Site midazolam (PF) (VERSED) injection intravenous, PRN, Starting on Fri05/10/22 at 1114, Until Fri05/10/22 at 1154, Routine, Anesthesia Intraprocedure Given 05/10/2022 11:20 EDT 2 mg Given 05/10/2022 11:14 EDT 2 mg documented in this encounter Care Teams Geodesist Relationship Specialty Start Date End Date Ramiro Cardenas MD [address] [place] [address] PCP - General 04/24/09 documented as of this encounter
--- OUTSIDE RECORDS SUMMARY | 2024-05-21 01:06 | XMS_ITS | Encounter Summary ---
Author Organization [facility] Address [address] [place] [address] Care Team Providers Care Inspector Welded Parts Name Role Phone Ramiro Cardenas MD Primary Care Provider [phone] Encounter Details Date Type Department Care Team (Late st Contact Info) Description 07/25/2022 Lab Requisition [facility] Pathology & Laboratory Medicine - [facility] [address] [place] [address] Outr Resulting Lab, Provider Social History Tobacco Use Types Packs/Day Years [...] Procedure Name Priority Date/Time Associated Diagnosis Comments HIV 1/2 ANTIGEN AND ANTIBODY, 4TH GENERATION Routine 07/25/2022 10:14 EST documented in this encounter Results * HIV 1/2 ANTIGEN AND ANTIBODY, 4TH GENERATION (07/25/2022 10:14 EST) HIV 1 and 2 Antibody/p24 Antigen, 4th Generation Negative Negative 07/26/2022 10:04 EST [facility] Comment:If acute HIV-1 infec tion is suspected in a high risk patient, submit plasma specimen for HIV-1 RNA quantitation test. Blood VENOUS BLOOD / Unknown 07/25/2022 10:14 EST 07/25/2022 21:28 EST Narrative [facility] - 07/26/2022 10:04 EST Fourth Generation assay performed on the Siemens Centaur XPT. Provider Outr Resulting Lab IMMUNOLOGY A ND SEROLOGY ORDERABLES [facility] [address] [place] [address] documented in this encounter Visit Diagnoses Not on filedocumented in this encounter Care Teams Inspector Welded Parts Relationship Specialty Start Date End Date Ramiro Cardenas MD [address] [place] [address] PCP - General 04/24/09 documented as of this encounter
--- OUTSIDE RECORDS SUMMARY | 2024-05-21 01:06 | XMS_ITS | Referral Summary ---
Author Organization [facility] Address [address] [place] [address] Care Team Providers Care Car Wiper Name Role Phone Ramiro Cardenas MD Primary Care Provider [phone] Encounters Date Type Department Care Team Description 02/26/2024 Lab Requisition [facility] Pathology & Laboratory Medicine - [facility] [address] [place] [address] Outr Resulting Lab, Provider from Last 3 Months Allergies Active Allergy Reactions Criticality Noted Date [...] Overview: Added automatically from request for surgery [id number] Combined forms of age-related cataract of right eye 02/27/2022 Overview: Added automatically from request for surgery [id number] Social History Tobacco Use Types Packs/Day Years Used Date Smoking Tobacco: Never Smokeless Tobacco: Never Alcohol Use Standard Drinks/Week Comments Not Currently 0 (1 standard drink = 0.6 oz pur e alcohol) Sex and Gender Information Value Date Recorded Sex Assigned at Not on file Gender Identity Male 05/03/2022 9:53 EDT Sexual Orientation Not on file Last Filed Vital Signs Vital Sign Reading [...] 37.99 05/10/2022 1006 EDT Plan of Treatment Not on file Medical Devices Implanted Type Area Staff Design Engineer Device Identifier Shelf Expiration Date Model / Serial / Lot Lens Intraocular Toric Astigmatism Correction Foldable +20.0d Acrysof Iq [id number] - [id number] Implanted:Qty: 1 on 05/03/2022 by Ezequiel Andrea MD at [facility] Lens Right: Eye [employer] 05/06/2026 [id number]. 0 / [id number] / Lens Intraocular Toric Astigmatism Correction Foldable +18.5d Acrysof Iq [id number] - [id number] Implanted:Qty: 1 on 05/10/2022 by Ezequiel Andrea MD at [facility] Lens Left: Lens [employer] [id number]. [id number] / [id number] / Procedures Procedure Name Priority Date/Time Associated Diagnosis Comments CEA Routine 02/26/2024 9:00 EDT from Last 3 Months Results * CEA (02/26/2024 9:00 EDT) CEA 1.7 See Note ng/mL 02/26/2024 22:48 EDT [facility] Comment: % Distribution of CEA (ng/mL): ??0.0 - 2.5 in 98.2% of Nonsmokers and 87.3% of Smokers ??2.6 - 5 in 1.8% of Nonsmokers and 8% of Smokers ??5.1 - 10.1 in 4.7% of Smokers NOTE: Serum CEA concentration should not be interpeted as absolute evidence for the presence or absence of malignant disease. ?? Assayed on Siemens ADVIA [employer] XPT using chemiluminescent technology. ??Values obtained by different assay methods cannot be used interchangeably. Blood VENOUS BLOOD / Unknown 02/26/2024 9:00 EDT 02/26/2024 21:46 EDT Provider Outr Resulting Lab CHEMISTRY & BLOOD GAS ORDERABLES [facility] [address] [place] [address] from Last 3 Months Advance Directives For more information, please contact: [phone] * Full Code (Latest Code Status on [...] Made the Decision? Default/Not Discussed Care Teams Car Wiper Relationship Specialty Start Date End Date Ramiro Cardenas MD [address] [place] [address] PCP - General 04/24/09
--- OUTSIDE RECORDS SUMMARY | 2024-05-21 01:06 | XMS_ITS | Encounter Summary ---
Author Organization [facility] Address [address] [place] [address] Care Team Providers Care Tube Room Supervisor Name Role Phone Ramiro Cardenas MD Primary Care Provider [phone] Encounter Details Date Type Department Care Team (Late st Contact Info) Description 01/02/2024 Lab Requisition [facility] Pathology & Laboratory Medicine - [facility] [address] [place] [address] Mac Delacruz MD [address] [place] [address], [address] [place], [place] [id number] Benign neoplasm, unspecified site Social History Tobacco Use Types Packs/Day Years [...] Date/Time Associated Diagnosis Comments SURGICAL PATHOLOGY Today 01/02/2024 8: 41 EDT Benign neoplasm, unspecified site documented in this encounter Results * SURGICAL PATHOLOGY (01/02/2024 8:41 EDT) Note to Patient The following pathology results have been interpreted by your pathologist and may be available to you before your health provider has had the opportunity to review them. Please allow time for your provider to receive these results and explore management options, if applicable. 01/07/2024 11:44 [facility] Final Diagnosis A. DUODENUM, POLYP, BIOPSY: - Invasive moderately-differen tiated adenocarcinoma. - Lymphovascular invasion is identified. - See comment. 01/07/2024 11:44 [facility] Diagnosis Comment Fishing Floats Assembler slides of this case were reviewed at the gastrointestinal/[facility] intradepartmental consultation conference. () Immunoperoxidase stains were performed on this case to further characterize the lesion. ANTIBODY(CLONE)(BLO CK):RESULT ERG ([id number], [place]) (A1): Positive around region of interest. CD31 (AUDRA/70A, [place]) (A1): Positive around region of interest. NOTE: One or more of the reagents used in immunoperoxidase testing in this case may not have been cleared or approved by the U.S. Food and Drug Administration (FDA). The FDA has determined that such clearance or approval is not necessary. These tests are used for clinical purposes. They should not be regarded as investigational or for research. These reagents' performance characteristics have been determined by [facility] and/or by the referring laboratory. The positive and negative controls worked appropriately. If immunoperoxidase staining has been performed on alcohol fixed cytology specimens, which has not been fully validated, the assays should be interpreted with caution and correlated with clinical data. This laboratory is certified under the Clinical Laboratory Improvement Amendments of 1988 (CLIA-88) as qualified to perform high complexity clinical laboratory testing. 01/07/2024 11:44 [facility] Attestation By the signature below, the attending physician certifies that they have 1) personally conducted a gross and/or microscopic examination of the described specimen(s), and/or personally interpreted the results of laboratory testing of the described specimen(s), and 2) personally rendered or confirmed the above diagnosis. 01/07/2024 11:44 [facility] at 1144 Clinical History History of duodenal nodule, previous tubulovillous adenoma 01/07/2024 11:44 [facility] Gross Description A. Received in formalin labelled with proper patient identification (initials O, S) and duodenum polyp are four shi tissue fragments ranging from 0.2 x 0.2 x 0.1 cm to 0.4 x 0.3 x 0.2 cm. Entirely submitted in A1. JULIO RADFORD(ASCP) 01/05/2024 7:15 01/07/2024 11:44 EDT [facility] Performing Lab [facility] 01/07/2024 11:44 EDT [facility] Scanned Images 01/07/2024 11:44 EDT [facility] Tissue STRUCTURE OF SMALL INTESTINE / Unknown 01/02/2024 8:41 EDT 01/02/2024 17:09 EDT Mac Delacruz MD PATHOLOGY ORDERABLES [facility] [address] [place] [address] documented in this encounter Visit Diagnoses Diagnosis Benign neoplasm, unspecified site documented in this encounter Care Teams Tube Room Supervisor Relationship Specialty Start Date End Date Ramiro Cardenas MD [address] [place] [address] PCP - General 04/24/09 documented as of this encounter
--- OUTSIDE RECORDS SUMMARY | 2024-05-21 01:06 | XMS_ITS | Encounter Summary ---
Author Organization [facility] Address [address] [place] [address] Care Team Providers Care Foreign Agent Name Role Phone Ramiro Cardenas MD Primary Care Provider [phone] Encounter Details Date Type Department Care Team (Latest Contact Info) Description 02/26/2022 Prep for Procedure [facility] Ophthalmology [facility] [address] [place], [place] [id number] Ezequiel Andrea MD [address] [place] [phone] Combined forms of age-related cataract of right eye (Primary Dx) Social History Tobacco Use [...] 02/27/2022 documented in this encounter Care Teams Foreign Agent Relationship Specialty Start Date End Date Ramiro Cardenas MD [address] [place], [place] [id number] PCP - General 04/24/09 documented as of this encounter
--- OUTSIDE RECORDS SUMMARY | 2024-05-21 01:06 | XMS_ITS | Encounter Summary ---
Author Organization [facility] Address [address] [place] [address] Care Team Providers Care Tip Printer Name Role Phone Ramiro Cardenas MD Primary Care Provider [phone] Encounter Details Date Type Department Care Team (Late st Contact Info) Description 11/16/2010 Results Only [facility] Services - [facility] ([facility] [address] [place], [place] [id number] Rodríguez Ramirez MD [address] [place] [address] Social History Tobacco Use Types Packs/Day Years Used Date Smoking Tobacco: Never Assessed Sex and Gender Information Value Date Recorded Sex Assigned at Not on file Gender Identity Male 05/03/2022 9:53 EDT Sexual Orientation Not on file documented as of this encounter Plan of Treatment Not on file documented as of this encounter Procedures Procedure Name Priority Date/Time Associated Diagnosis Comments SURGICAL PATHOLOGY Routine 11/16/2010 0:00 EST documented in this encounter Results * SURGICAL PATHOLOGY (11/16/2010 0:00 EST) Pathology Report: SURGICAL PATHOLOGY REPORT ? Reports generated via electronic interface contain original data; ? however they are lacking the format of the original report. ? Caution should be taken when reading/interpreti ng unformatted reports. ? Name: ? KALIE, CHARLES ? Accession #: ? [id number] ? : ? 1975 (Age: 34) ??M ? Collect Date: ? 11/16/2010 ? Location: ? [facility] ? Receive Date: ? 11/16/2010 ? Provider: RODRÍGUEZ RAMIREZ MD ? Copy to: JYOTI QUIÑONES SKIVER COUNTER ? ROBERT FINE MD ? Final Pathologic Diagnosis: ? A. ?Vas deferens, right, partial resection: ? 1. ?Portion of vas deferens with intact lumen. ? B. ?Vas deferens, left, partial resection: ? 1. ?Portion of vas deferens with intact lumen. ? Document reviewed and electronically signed by: ? Serjio Hodgson MD ? Report ??Date: 11/19/2010 17:24 ? By the signature above, the attending physician certifies that he/she has ? personally conducted a gross and/or microscopic examination of the described ? specimens and rendered or confirmed the above diagnosis. ? Specimen(s) Received: ? A. ?Right vas (#1) ? B. ? Left vas (#2) ? Clinical History: ? Desires sterilization ? Gross Description: ? Received in formalin labelled Kalie Charles and right vas is a tubular section of vas deferens which measures 1.1 cm in length and 0.4 cm in diameter. The external surface of the specimen appears shi-yellow, smooth and glistening. Cut sections of the specimen reveal a central pinpoint lumen which measures 0.1 cm in diameter. ??The remainder of the tissue is unremarkable. ??Workday Financials Consultant ?? sections are submitted in one cassette as (A). ? Received in formalin labelled Charles Nick and left vas is a portion of ? tubular-appearing vas deferens which measures 0.8 cm in length by 0.4 cm in ? diameter. ??The external surface of the specimen appears shi-yellow, smooth and ?? glistening. ??Cut sections of the specimen demonstrate a central pinpoint lumen ?? which measures 0.1 cm. ??The remainder of the specimen is unremarkable. ? Workday Financials Consultant sections of the specimen are submitted in one cassette as (B). ?? (Dr. Segovia)/fauziak ? End of Report ? [facility] 11/16/2010 11/16/2010 6:3 4 EST Rodríguez Ramirez MD PATHOLOGY ORDERABLE S Performing Organization Address City/State/[facility] Co de Phone Number [facility] [address] [place] [address] documented in this encounter Visit Diagnoses Not on filedocumented in this encounter Care Teams Tip Printer Relationship Specialty Start Date End Date Ramiro Cardenas MD [address] [place] [address] PCP - General 04/24/09 documented as of this encounter
--- OUTSIDE RECORDS SUMMARY | 2024-05-21 01:06 | XMS_ITS | Encounter Summary ---
Author Organization [facility] Address [address] [place] [address] Care Team Providers Care Barrel Marker Name Role Phone Ramiro Cardenas MD Primary Care Provider Encounter Details Date Type Department Care Team (Late st Contact Info) Description 02/26/2024 Lab Requisition [facility] Pathology & Laboratory Medicine - [facility] [address] [place] [address] Outr Resulting Lab, Provider Social History Tobacco [...] Diagnosis Comments CEA Routine 02/26/2024 9:00 EDT documented in this encounter Results * CEA (02/26/2024 9:00 EDT) CEA 1.7 See Note ng/mL 02/26/2024 22:48 EDT [facility] Comment: % Distribution of [...] Resulting Lab CHEMISTRY & BLOOD GAS ORDERABLES [facility] [address] [place] [address] documented in this encounter Visit Diagnoses Not on filedocumented in this encounter Care Teams Barrel Marker Relationship Specialty Start Date End Date Ramiro Cardenas MD [address] [place] [address] PCP - General 04/24/09 documented as of this encounter
--- OUTSIDE RECORDS SUMMARY | 2024-05-21 01:06 | XMS_ITS | Encounter Summary ---
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) Social History Tobacco Use Types Packs/Day Years Used Date Smoking Tobacco: Never Smokeless Tobacco: Never Sex and Gender Information Value Date Recorded Sex Assigned at Not on file Gender Identity Male 05/03/2022 9:53 EDT Sexual Orientation Not on file documented as of this encounter Progress Notes * Ezequiel Andrea MD - 04/03/2022 1234 EDT Right Eye Lens Calc w/o IOL Biometry Optical Coherence Biometry Calculations Date of original biometry: 02/27/22 Read date: 04/09/22 Indicated eye: the right eye Procedure date: 05/03/22 Procedure location: [facility] Lens type: SN6AT4 Lens power: 20.0 Electronically Signed: Ezequiel Andrea MD 04/09/22 documented in this encounter Plan of Treatment Not on file documented as of this encounter Procedures Procedure Name Priority Date/Time Associated Diagnosis Comments RIGHT EYE LENS CALC W/O IOL BIOMETRY Routine 04/09/2022 17:00 EDT Combined forms of age-related cataract of right eye documented in this encounter Results * RIGHT EYE LENS CALC W/O IOL BIOMETRY (04/09/2022 17:00 EDT) Narrative [facility] POINT OF CARE - 04/09/2022 17:00 EDT Optical Coherence Biometry Calculations Date of original biometry: 02/27/22 Read date: 04/09/22 Indicated eye: the right eye Procedure date: 05/03/22 Procedure location: [facility] Lens type: SN6AT4 ?? Lens power: 20.0 Electronically Signed: Ezequiel Andrea MD 04/09/22 Ezequiel Andrea MD OPHTH ULTRASOUND [facility] POINT OF CARE documented in this encounter Visit Diagnoses Diagnosis Combined forms of age-related cataract of right eye- Primary Other and combined forms of senile cataract documented in this encounter Care Teams Roundhouse Worker Relationship Specialty Start Date End Date Ramiro Cardenas MD [address] [place] [address] PCP - General 04/24/09 documented as of this encounter
--- OUTSIDE RECORDS SUMMARY | 2024-05-21 01:06 | XMS_ITS | Encounter Summary ---
Author Organization [facility] Address [address] [place] [address] Care Team Providers Care Management Consulting Name Role Phone Ramiro Cardenas MD Primary Care Provider [phone] Reason for Visit * Reason Onset Date Comments Pre-op Exam 02/27/2022 Encounter Details Date Type Department Care Team (Late st Contact Info) Description 02/27/2022 11:00 EDT Office Visit [facility] Ophthalmology [facility] [address] [place] [address] Ezequiel Andrea MD [address] [place] [phone] Social History Tobacco Use Types Packs/Day Years Used Date Smoking Tobacco: Never Smokeless Tobacco: Never Sex and Gender Information Value Date Recorded Sex Assigned at Not on file Gender Identity Male 05/03/2022 9:53 EDT Sexual Orientation Not on file documented as of this encounter Ordered Prescriptions Prescription Sig Dispensed Refills Start Date End Da te moxifloxacin (VIGAMOX) 0.5 % ophthalmic solutionIndications:Combine d forms of age-related cataract of right eye Place 1 Drop into the right eye 4 times daily. 3 mL 05/03/2022 prednisoLONE (PRED FORTE) 1 % ophthalmic suspensionIndications:Combi janice forms of age-related cataract of right eye Place 1 Drop into the right eye 4 times daily. 5 mL 05/03/2022 ketOROLAC tromethamine (ACULAR LS) 0.4 % dropsIndications:Combined forms of age-related cataract of right eye Place 1 Drop into the right eye 4 times daily. 5 mL 05/01/2022 documented in this encounter Progress Notes * Katelynn Mejia, DANIELA - 02/27/2022 1100 EDT IOL Master/Lens Star only BIOMETRY Right eye Left eye Type: Lenstar Lenstar Indication: IOL Calculations IOL Calculations Biometry Completed by DANIELA Lyn Original tests to be found in patients shadow chart I was directly supervised by Dr Francisca Saunders and she was in the suite and immediately available for the entire time the service was provided. documented in this encounter Plan of Treatment Not on file documented as of this encounter Procedures Procedure Name Priority Date/Time Associated Diagnosis Comments IOL MASTER/LENS STAR ONLY Routine 02/27/2022 16:24 EDT Combined forms of age-related cataract of left eye Combined forms of age-related cataract of right eye documented in this encounter Results * IOL MASTER/LENS STAR ONLY (02/27/2022 16:24 EDT) Narrative [facility] POINT OF CARE - 02/27/2022 16:24 EDT BIOMETRY ??Right eye Left eye Type: ??Lenstar Lenstar ?? Indication: ??IOL Calculations ??IOL Calculations ?? Biometry Completed by DANIELA Lyn Original tests to be found in patients shadow chart I was directly supervised by Dr Francisca Saunders and she was in the suite and immediately available for the entire time the service was provided. Ezequiel Andrea MD OPHTH ULTRASOUND [facility] POINT OF CARE documented in this encounter Visit Diagnoses Diagnosis Combined forms of age-related cataract of left eye- Primary Other and combined forms of senile cataract Combined forms of age-related cataract of right eye Other and combined forms of senile cataract documented in this encounter Care Teams Management Consulting Relationship Specialty Start Date End Date Ramiro Cardenas MD [address] [place] [address] PCP - General 04/24/09 documented as of this encounter
--- OUTSIDE RECORDS SUMMARY | 2024-05-21 01:06 | XMS_ITS | Encounter Summary ---
Author Organization [facility] Address [address] [place] [address] Care Team Providers Care Salt Machine Operator Name Role Phone Unknown, Provider Primary Care Provider [phone] Encounter Details Date Type Department Care Team (Late st Contact Info) Description 04/20/2009 Orders Only [facility] Medicine - [address] [address] Robb Decker MD [address] [place], [place] [phone] Social History Tobacco Use Types Packs/Day Years [...] Date/Time Associated Diagnosis Comments SURGICAL PATHOLOGY Routine 04/20/2009 0:00 EDT documented in this encounter Results * SURGICAL PATHOLOGY (04/20/2009 0:00 EDT) Pathology Report: SURGICAL PATHOLOGY REPORT ? Reports generated via electronic interface contain original data; ? however they are lacking the format of the original report. ? Caution should be taken when reading/interpreti ng unformatted reports. ? Name: ? KALIE, CHARLES ? Accession #: ? [id number] ? : ? 1975 (Age: 33) ??M ? Collect Date: ? 04/20/2009 ? Location: ? [facility] ? Receive Date: ? 04/20/2009 ? Provider: ROBB DECKER MD ? Copy to: FILI GUALLPA MD ? Final Pathologic Diagnosis: ? Skin of scalp, excision: ? - Dermal fibrosis with granulation tissue, inflammation, and foreign body giant cell reaction to ?liberated keratin. ??See comment. ? Comment: ? Although no cyst is evident, the features are consistent with reaction to a ruptured follicular cyst. ??(Dr. Gomez)/kmm ? Microscopic Description: ? Sections consist of irregular and fragmented portions of skin with ? underlying subcutis. ??Much of the epidermis is denuded from the largest fragment of tissue. ??Where the epidermis is evident, it is relatively unremarkable. ??The dermis has dense fibrosis with a reactive vascular pattern. ??There is ? granulation tissue formation with a dense mixed inflammatory infiltrate. ??In ? areas, giant cells are noted, some of which are in association with keratinous ?? debris. ??(Dr. Gomez)/kmm ? Document reviewed and electronically signed by: ? Radha Wade. Jason, MD ? Report ??Date: 04/24/2009 15:11 ? By the signature above, the attending physician certifies that he/she has ? personally conducted a gross and/or microscopic examination of the described ? specimens and rendered or confirmed the above diagnosis. ? Specimen(s) Received: ? Pilar cyst ? Clinical History: ? Pilar cyst ? Gross Description: ? Received in formalin labelled Olone, Charles and scalp excision pilar ? cyst is an unoriented elliptical excision of vu-white skin which measures 1.8 x 0.9 cm and is excised to a depth of 0.3 cm. ??The excision has a central full ?? thickness surgical defect measuring 1.5 x 0.3 cm. ??There is a loosely attached ?? ovoid portion of yellow and white fibrofatty tissue at one end of the excision ?? which measures 2.0 x 1.1 x 1.1 cm. ??The ? margins are inked black. ??Also received in the container is an unoriented ? elliptical excision of white skin measuring 1.5 x 0.4 cm and 0.2 cm in ? thickness. ??The margins are inked black. ??Two manufacturers service representative central sections of the larger excision with underlying fibrofatty tissue are submitted as (A1) and (A2) and manufacturers service representative central sections of the additional excision are ? submitted as (A3). (Simone Law)/mpl ? End of Report ? [facility] 04/20/2009 04/20/2009 18: 41 EDT Robb Decker MD PATHOLOGY ORDERABLES Performing Organization Address City/State/[facility] Co de Phone Number [facility] [address] [place] [address] documented in this encounter Visit Diagnoses Not on filedocumented in this encounter Care Teams Salt Machine Operator Relationship Specialty Start Date End Date Unknown, Provider, PCP - General 04/20/09 04/23/09 documented as of this encounter
--- OUTSIDE RECORDS SUMMARY | 2024-05-21 01:06 | XMS_ITS | Encounter Summary ---
Author Organization [facility] Address [address] [place] [address] Care Team Providers Care Manual Training Teacher Name Role Phone Ramiro Cardenas MD Primary Care Provider [phone] Encounter Details Date Type Department Care Team (Late st Contact Info) Description 06/26/2009 Orders Only [facility] Medicine [address] [address] Robb Decker MD [address] [place], [place] [phone] Social History Tobacco Use Types Packs/Day Years [...] Date/Time Associated Diagnosis Comments SURGICAL PATHOLOGY Routine 06/26/2009 0:00 EDT documented in this encounter Results * SURGICAL PATHOLOGY (06/26/2009 0:00 EDT) Pathology Report: SURGICAL PATHOLOGY REPORT ? Reports generated via electronic interface contain original data; ? however they are lacking the format of the original report. ? Caution should be taken when reading/interpreti ng unformatted reports. ? Name: ? KALIE, CHARLES ? Accession #: ? [id number] ? : ? 1975 (Age: 33) ??M ? Collect Date: ? 06/26/2009 ? Location: ? [facility] ? Receive Date: ? 06/27/2009 ? Provider: ROBB GROVEO MD ? Copy to: ROBERT FINE MD ? Final Pathologic Diagnosis: ? Gallbladder, cholecystectomy: ? 1. ?Chronic cholecystitis. ? 2. ? Cholelithiasis. ? Document reviewed and electronically signed by: ? JAVAD AGRAWAL MD ? Report ??Date: 06/28/2009 18:45 ? By the signature above, the attending physician certifies that he/she has ? personally conducted a gross and/or microscopic examination of the described ? specimens and rendered or confirmed the above diagnosis. ? Specimen(s) Received: ? Gallbladder ? Clinical History: ? Biliary colic ? Gross Description: ? Received in formalin labelled Kalie, Charles and gallbladder is a ? previously opened gallbladder measuring 6.5 cm in length by 2.4 cm in diameter. The serosa is shi-pink and glistening. ??The mucosa is shi-red with coarse yellow streaking. ??The wall averages 0.2 cm in thickness. ??The lumen contains minimal ?? green mucoid bile and multiple yellow-black multifaceted choleliths measuring ?? 3.5 x 2.5 x 2.0 cm in aggregate. ??The cystic duct is 0.3 cm in length x 0.3 cm ?? in diameter. ??Rubber Stamp Dies Inspector sections are submitted in one cassette. ??(M. ? Luisa)/kmanalilia ? End of Report ? [facility] 06/26/2009 06/27/2009 8:5 2 EDT Robb Decker MD PATHOLOGY ORDERABLES [facility] [address] [place] [address] documented in this encounter Visit Diagnoses Not on filedocumented in this encounter Care Teams Manual Training Teacher Relationship Specialty Start Date End Date Ramiro Cardenas MD [address] [place] [address] PCP - General 04/24/09 documented as of this encounter
--- OUTSIDE RECORDS SUMMARY | 2024-05-21 01:06 | XMS_ITS | Encounter Summary ---
Author Organization [facility] Address [address] [place] [address] Care Team Providers Care Industrial Maintenance Mechanic Name Role Phone Ramiro Cardenas MD Primary Care Provider [phone] Reason for Visit * Auth/Cert Specialty Diagnoses / [facility] Referred To Contact Diagnoses 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 [H25.811] Procedures NV XCAPSL CTRC RMVL INSJ IO LENS PROSTH W/O ECP EXTRACTION, CATARACT, EXTRACAPSULAR, WITH IOL INSERTION ORA - Toric Referral ID Status Reason Start Date Expiration Date Visits Re quested Visits Authorized [id number] 1 1 Encounter Details Date Type Department Care Team (Late st Contact Info) Description 05/03/2022 11:32 EDT Anesthesia Event [facility] Operating Room [address] [place] [address] Shahida Zelaya MD [address] [phone] Trish Paz CRNA [address] [phone] Anesthesia Record Procedure Summary Procedure Name Responsible Anesthesiologist Anesthesia Start Time Anesthesia Stop Time EXTRACTION, CATARACT, EXTRACAPSULAR, WITH IOL INSERTION ORA - Toric (Right: Eye) Shahida Zelaya MD 05/03/22 1132 05/03/22 1229 Events Date Time Event Comment 05/03/2022 1132 An Start The patient was re-evaluated immediately before moderate or deep sedation use, before anesthesia induction, or before the anesthesia procedure. 1132 An Start Data 1143 Anesthesia Ready 1212 an stop data 1229 Handoff to RN I completed my handoff to the receiving nurse during which we: 1. Identified the patient 2. Identified the responsible provider 3. Reviewed the pertinent medical history 4. Discussed the surgical course 5. Reviewed intra-op anesthesia management and issues during anesthesia 6. Set expectations for post-procedure period 7. Allowed opportunity for questions and acknowledgement of understanding. 1229 An Stop Meds Name Total midazolam 1 mg/mL 2 mL vial 4 mg labetalol 5 mg/mL vial 10 mg * Agents Name O2 N2O Air Aux O2 flow * Blood No blood administrations on file. Lines, Drains, and Airways Type Details Placement Removal Wound 05/03/22; 1147; [place]i [place]; Right; Eye; surgical incision; N 05/03/22 1147 by Jenelle Jordan RN Peripheral IV 05/03/22; 1124; 20; Left, Posterior; Hand; Inserted by RN (Jeffy Best RN); 2; None; Chlorhexidine; 05/03/22; 1243; Discharged; No complications 05/03/22 1124 by Francisca Rosas RN 05/03/22 1243 by Valentina Feliciano RN documented in this encounter Social History Tobacco [...] 10:41 EDT documented as of this encounter OR Notes * Anesthesia Postprocedure Evaluation - Trish Paz CRNA - 05/03/2022 1229 EDT Patient: Charles Nick Vital signs were reviewed with the recovery nurse. Complete vitals history is available in the Epicflowsheets. Vitals Value Taken Time BP 05/03/22 1229 Temp 05/03/22 1229 Resp 15 05/03/22 1229 Pulse From Oximetry 90 BPM 05/03/22 1229 SpO2 97 % 05/03/22 1229 Heart Rate 90 BPM 05/03/22 1229 Vitals shown include unvalidated device data. Last Pain Score - Numeric Pain Level (Scale 1-10): (P) 0 Type of Anesthesia - MAC Anesthesia Post Evaluation Post-procedure vitals reviewed and are stable. 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 Underwent spontaneous remission without imunotherapy. Repeat biopsy in 2007 at [facility]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 . ?? Obesity. [...] status and Medication History. Additional ROS/History Findings: History reviewed. No pertinent past medical history. Relevant Problems No relevant active problems History reviewed. No pertinent surgical history. Past Anesthetics [] None on file Review of Systems Constitutional: Negative. Respiratory: Negative for shortness of breath and wheezing. Cardiovascular: Negative for chest pain and palpitations. Gastrointestinal: Negative for heartburn. SOCIAL HISTORY: [] None [] Current smoking [] Vaping [] Marijuana [] Alcohol Social History Tobacco Use Smoking Status Never Smoker Smokeless Tobacco Never Used Social History Substance and Sexual Activity Drug Use Never Social History Substance and Sexual Activity Alcohol Use Not Currently FAMILY HISTORY: []No family history of allergic reactions to anesthesia No current facility-administered medications on file prior to encounter. Current Outpatient Medications on File Prior to Encounter Medication Sig Dispense Refill ??? furosemide (LASIX) 40 mg tablet Take 40 mg by mouth daily. ??? gabapentin (NEURONTIN) 600 mg tablet Take 600 mg by mouth 3 times daily. ??? glimepiride (AMARYL) 4 mg tablet Take [...] (ACULAR) 0.5 % ophthalmic solution 1 Drop right eye PRE-OP MULTIPLE ??? moxifloxacin (VIGAMOX) 0.5 % ophthalmic solution 1 Drop right eye PRE-OP MULTIPLE ??? phenylephrine (MYDFRIN) 2.5 % ophthalmic solution 1 Drop right eye PRE-OP MULTIPLE ??? sodium chloride 0.9 % (flush) flush 5 mL intravenous Q8H ??? tropicamide (MYDRIACYL) 1 % ophthalmic solution 1 Drop right eye PRE-OP MULTIPLE Allergies Allergen Reactions ??? Penicillins No results found for: WBC, HGB, HCT, MCV, PLT No results found for: NA, K, KEXT, CL, CLEXT, CO2, CO2EXT No results found for: BUN No results found for: CREATININE, CREATININEEX No results found for: INR, PROTIME No results found for: PTT UPT: No results found for: PREGUR COVID: [] None on file No results found for: COVIDUV Blood Type: No results found for: ABO, LABRH, LABANTI, SPECEXP EKG: [] None on file ECHO: [] None on file Cardiac Stress: [] None on file Left Heart Cath: [] None on file Patient Vitals for the past 24 hrs: BP Temp Temp src Resp SpO2 Height Weight 05/03/22 1058 (!) 150/104 36.6 ??C (97.9 ??F) Oral 19 94 % 188 cm (74) (!) 134.3 kg (296 lb) Physical Exam Airway Mallampati: II Cardiovascular Rhythm: regular Rate: normal Dental (+) upper dentures Comments: Bottom partial Pulmonary Breath sounds clear to auscultation Abdominal FS- 169 NPO Status: nothing today Anesthesia Plan ASA 3 Anesthesia Type - MAC Anesthesia plan and risks discussed. Informed consent obtained from patient. documented in this encounter Plan of Treatment Not on file documented as of this encounter Visit Diagnoses Not on filedocumented in this encounter Administered Medications Inactive Administered Medications - up to 3 most recent administrations Medication Order MAR Action Action Date Dose Rate Site labetalol (TRANDATE) injection intravenous, PRN, Starting on Fri05/03/22 at 1139, Until Fri05/03/22 at 1229, Routine, Anesthesia Intraprocedure Given 05/03/2022 11:39 EDT 10 mg midazolam (PF) (VERSED) injection intravenous, PRN, Starting on Fri05/03/22 at 1136, Until Fri05/03/22 at 1229, Routine, Anesthesia Intraprocedure Given 05/03/2022 12:01 EDT 1 mg Given 05/03/2022 11:42 EDT 1 mg Given 05/03/2022 11:36 EDT 2 mg documented in this encounter Care Teams Industrial Maintenance Mechanic Relationship Specialty Start Date End Date Ramiro Cardenas MD [address] [place] [address] PCP - General 04/24/09 documented as of this encounter
--- OUTSIDE RECORDS SUMMARY | 2024-05-21 01:06 | XMS_ITS | Encounter Summary ---
Author Organization [facility] Address [address] [place] [address] Care Team Providers Care Tower Erector Name Role Phone Ramiro Cardenas MD Primary Care Provider [phone] Encounter Details Date Type Department Care Team (Late st Contact Info) Description 07/25/2022 Lab Requisition [facility] Pathology & Laboratory Medicine - [facility] [address] [place] [address] Outr Resulting Lab, Provider Social History Tobacco [...] Procedure Name Priority Date/Time Associated Diagnosis Comments SYPHILIS SEROLOGY Routine 07/25/2022 10: 14 EST documented in this encounter Results * SYPHILIS SEROLOGY (07/25/2022 10:14 EST) Syphilis Serology Negative Negative 07/26/2022 11:38 EST [facility] Blood VENOUS BLOOD / Unknown 07/25/2022 10:14 EST 07/25/2022 21:28 EST Provider Outr Resulting Lab IMMUNOLOGY A ND SEROLOGY ORDERABLES [facility] [address] [place] [address] documented in this encounter Visit Diagnoses Not on filedocumented in this encounter Care Teams Tower Erector Relationship Specialty Start Date End Date Ramiro Cardenas MD [address] [place], [place] [phone] PCP - General 04/24/09 documented as of this encounter
--- OUTSIDE RECORDS SUMMARY | 2024-05-21 01:06 | XMS_ITS | Encounter Summary ---
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 Operating Room [address] [place] [address] Ezequiel Andrea MD [address] [place] [address] EXTRACTION, CATARACT, EXTRACAPSULAR, WITH IOL INSERTION ORA - Toric [[id number] (CPT??)] Surgery Details Date/Time Status Location OR Service Patient Class Case Cl ass Case Type Trauma Case? 05/03/22 1115 Posted [facility] OR OR 04 Ophthalmology Hos pital Outpatient Surgery H - Elective Panel 1 Procedure LRB Anes Op Region Wound Class Comments EXTRACTION, CATARACT, EXTRACAPSULAR, WITH IOL INSERTION ORA - Toric Right Monitored Anesthesia Care Eye Class I/ Clean Surgeon Surgeon Role Service Panel Ezequiel Andrea MD Primary Ophthalmology 1 Special Needs ORA - Toric IOL documented in this encounter Social History Tobacco [...] Sign Reading Time Taken Comments Blood Pressure 150/104 05/03/2022 1058 EDT Pulse - - Temperature 36.6 ??C (97.9 ??F) 05/03/2022 1058 EDT Respiratory Rate 19 05/03/2022 1058 EDT Oxygen Saturation 94% 05/03/2022 1058 EDT Inhaled Oxygen Concentration - - Weight [...] not hesitate to call the office at [phone]. documented in this encounter Medications at Time [...] Code Departure Means Destination Home or Self Chcf documented in this encounter H&P Notes * Ezequiel Andrea MD - 05/03/2022 2112 EDT The preoperative history and physical which [...] Toric (R) Operative Note Date: 05/03/2022 Location: [facility] OR Name: Charles Nick, : [...] D, right eye. SURGEON: Ezequiel Andrea MD RANGE AID: DANIELA Lyn ANESTHESIA: Topical and MAC ESTIMATED [...] operative eye in the pre-operative area. A [employer] marker was used to identify the 0, [...] no complications. The patient returned to the child care nurse area alert and ingood condition. * Preprocedure Instructions - Lisa Kemp RN - 05/02/2022 0971 EDT Charles Nick has been instructed as [...] EDT) 05/16/2022 10:4 4 EDT Scan 2 Die Sinker PROCEDURE/MINOR [place] GICAL ORDERABLES * ECG REPORT - SCANNED (05/07/2022 9:47 EDT) 05/07/2022 9:47 EDT Scan 2 Die Sinker PROCEDURE/[place] GICAL ORDERABLES * (ABNORMAL) POCT GLUCOSE, INTERFACED (05/03/2022 12:36 EDT) Glucose, POC 145(H) 70 - 100 mg/dL 05/03/2022 13:46 EDT [facility] HN LAB POC COMMENT (GLUCOSE) Test Performed in [facility] 05/03/2022 13:46 EDT [facility] Blood CAPILLARY BLOOD / Unknown 05/03/2022 12:36 EDT 05/03/2022 13:45 EDT Ezequiel Andrea MD POINT OF CARE TEST O ELKIN Performing Organization Address City/[facility] Co de Phone Number [facility] [address] [place], [place] [id number] * (ABNORMAL) POCT GLUCOSE, INTERFACED (05/03/2022 11:05 EDT) Glucose, POC 169(H) 70 - 100 mg/dL 05/03/2022 11:07 EDT [facility] HN LAB POC COMMENT (GLUCOSE) Test Performed in [facility] 05/03/2022 11:07 EDT [facility] Blood CAPILLARY BLOOD / Unknown 05/03/2022 11:05 EDT 05/03/2022 11:07 EDT Ezequiel Andrea MD POINT OF CARE TEST O ELKIN [facility] [address] [place] [id number] documented in this encounter Visit Diagnoses Diagnosis [...] Until Fri05/03/22 at 1357, Routine, Recovery (only) balanced salt solution inrrigation solution (BSS PLUS) 500 mL, EPINEPHrine HCl (PF) (ADRENALIN) 0.3 mL irrigation PRN, Starting on Fri05/03/22 at 1148, Until Fri05/03/22 at 1214, Routine, Intraprocedure Given 05/03/2022 11:48 EDT 500 mL balanced salts (BSS) ophthalmic solution PRN, Starting on Fri05/03/22 at 1149, Until Fri05/03/22 at 1214, Routine, Intraprocedure Given 05/03/2022 11:49 EDT 7 mL chondroitin-sodium hyaluronate (VISCOAT) ophthalmic solution PRN, Starting on Fri05/03/22 at 1206, Until Fri05/03/22 at 1214, Routine, Intraprocedure Given 05/03/2022 12:06 EDT 0.5 mL ketOROLAC (ACULAR) 0.5 % ophthalmic solution 1 Drop 1 Drop, right eye, PRE-OP MULTIPLE, 3 doses, Starting on Fri05/03/22 at 1027, Until Fri05/03/22 at 1107, for cataract pre-procedure, follow admin instructions, Routine, Preprocedure Given 05/03/2022 11:07 EDT 1 Drop Given 05/03/2022 10:56 EDT 1 Drop Given 05/03/2022 10:43 EDT 1 Drop lidocaine (PF) 20 mg/mL (2 %) injection PRN, Starting on Fri05/03/22 at 1148, Until Fri05/03/22 at 1214, Routine, Intraprocedure Given 05/03/2022 11:48 EDT 100 mg Right Eye lidocaine 1% + phenylephrine 1% intracameral syringe 0.8 mL, intracameral, INTRA-OP ONCE, 1 dose, On Fri05/03/22 at 1230, Routine, Intraprocedure Given 05/03/2022 12:08 EDT 0.8 mL Right Eye moxifloxacin (VIGAMOX) 0.5 % ophthalmic solution 1 Drop 1 Drop, right eye, PRE-OP MULTIPLE, 3 doses, Starting on Fri05/03/22 at 1027, Until Fri05/03/22 at 1122, Other, for cataract pre-procedure, follow admin instructions, Routine, Preprocedure Given 05/03/2022 11:22 EDT 1 Drop Given 05/03/2022 11:15 EDT 1 Drop Given 05/03/2022 11:13 EDT 1 Drop moxifloxacin intracameral syringe 1.5 mg/0.3 mL 1.5 mg, intracameral, INTRA-OP ONCE, 1 dose, On Fri05/03/22 at 1230, Routine, Intraprocedure Given 05/03/2022 12:08 EDT 1.5 mg Right Eye ondansetron (PF) (ZOFRAN) injection 4 mg [...] Drop Given 05/03/2022 10:39 EDT 1 Drop povidone-iodine 5 % ophthalmic solution PRN, Starting on Fri05/03/22 at 1148, Until Fri05/03/22 at 1214, Routine, Intraprocedure Given 05/03/2022 11:48 EDT 3 Drops sodium chloride 0.9 % (flush) flush 5 mL 5 mL, intravenous, EVERY 8 HOURS, First dose on Fri05/03/22 at 1045, Until Discontinued, Routine, Preprocedure sodium hyaluronate (HEALON) ophthalmic injection PRN, Starting on Fri05/03/22 at 1206, Until Fri05/03/22 at 1214, Routine, Intraprocedure Given 05/03/2022 12:06 EDT 8.5 mg Right Eye tetracaine (PONTOCAINE) 0.5 % ophthalmic solution PRN, Starting on Fri05/03/22 at 1207, Until Fri05/03/22 at 1214, Routine, Intraprocedure Given 05/03/2022 12:07 EDT 2 Drops tropicamide (MYDRIACYL) 1 % ophthalmic solution 1 [...] Date acetaminophen (TYLENOL) tablet 975 mg 1 ondansetron (PF) (ZOFRAN) injection 4 mg 1 05/03/2022 sodium chloride 0.9 % (flush) flush 5 mL 1 05/03/2022 Nursing Count Last Ordered Date First Orde red Date ACTIVITY INSTRUCTIONS 2 05/03/2022 BATHING INSTRUCTIONS 1 05/03/2022 WOUND CARE INSTRUCTIONS 1 05/03/2022 Discharge Count Last Ordered Date First Orde red Date DISCHARGE PATIENT 1 05/03/2022 documented in this encounter Care Teams Advertising Production Manager Relationship Specialty Start Date End Date Ramiro Cardenas MD [address] [place] [address] PCP - General 04/24/09 documented as of this encounter
--- OUTSIDE RECORDS SUMMARY | 2024-05-21 01:06 | XMS_ITS | Encounter Summary ---
Author Organization [facility] Address [address] [place] [address] Care Team Providers Care Senior Outside Sales Representative Name Role Phone Ramiro Cardenas MD Primary Care Provider [phone] Reason for Visit * Reason Onset Date Comments Medication Problem 05/01/2022 re: pre/post- op drops at pharmacy Encounter Details Date Type Department Care Team (Late st Contact Info) Description 05/01/2022 Telephone [facility] Ophthalmology - [place] [address] [place], [place] [id number] Ezequiel Andrea MD [address] [place] [phone] Medication Problem (re: pre/post-op drops at pharmacy) Social History Tobacco Use Types Packs/Day Years Used Date Smoking Tobacco: Never Smokeless Tobacco: Never Sex and Gender Information Value Date Recorded Sex Assigned at Not on file Gender Identity Male 05/03/2022 9:53 EDT Sexual Orientation Not on file documented as of this encounter Miscellaneous Notes * Telephone Encounter - Katelynn Mejia COA - 05/01/2022 1652 EDT Called pharmacy to confirm post-op drops ordered 02/27/22 available for patient documented in this encounter Plan of Treatment Not on file documented as of this encounter Visit Diagnoses Not on filedocumented in this encounter Care Teams Senior Outside Sales Representative Relationship Specialty Start Date End Date Ramiro Cardenas MD [address] [place], [place] [phone] PCP - General 04/24/09 documented as of this encounter
--- OUTSIDE RECORDS SUMMARY | 2024-05-21 01:06 | XMS_ITS | Encounter Summary ---
Author Organization [facility] Address [address] [place] [address] Care Team Providers Care Ribbon Tier Name Role Phone Ramiro Cardenas MD Primary Care Provider [phone] Reason for Visit * Reason Onset Date Comments Post-OP Follow Up 05/09/2022 Encounter Details Date Type Department Care Team (Latest Contact Info) Description 05/09/2022 9:00 EDT Post-op Visit [facility] Ophthalmology [facility] [address] [place] [address] Ezequiel Andrea MD [address] [place] [phone] Cataract extraction status of eye, right (Primary Dx); Combined forms of age-related cataract of left eye Social History Tobacco Use Types Packs/Day Years [...] 10:41 EDT documented as of this encounter Progress Notes * Ezequiel Andrea MD - 05/09/2022 0900 EDT Chief Complaint: Pseudophakia, Cataract Post-Op Week 1, right eye, HPI The patient is a 46 y.o. male, POW #1 s/p CE/PCIOL, right eye. Patient denies eye pain and has useddrops as instructed. Location: Right eye Pain: 0 - No pain Quality: Severity: Mild Duration: Hours Timing: Lasts: Context: POW#1 CE PCIOL, right eye (05/03/22). His vision for distance has been improving, but he ishaving difficulty with near vision, concerned about working on friday. Modifying factors: using drops as directed Associated Signs & Symptoms: Visual Fluctuations: Attestation: Base Eye Exam Visual Acuity (Snellen - Linear) Right Left Dist sc 20/20 Tonometry (Applanation, 9:31) Right Left Pressure 13 Neuro/Psych Oriented x3: Yes Mood/Affect: Normal Slit Lamp and Fundus Exam External Exam Right Left External Normal Normal Slit Lamp Exam Right Left Lids/Lashes Normal Normal Conjunctiva/Sclera White and quiet White and quiet Cornea sealed incisions, trace Edema over the incision Clear Anterior Chamber deep, trace Cell Deep and quiet Iris Round and reactive Round and reactive Lens Toric posterior chamber intraocular lens at 102 degrees Trace Nuclear sclerosis, 1+ Posterior subcapsular cataract, Vacuoles Fundus Exam Right Left Disc clear view to posterior pole Refraction Manifest Refraction Sphere Cylinder [place] Right -0.25 +0.25 168 Left IMPRESSION & PLAN: POW #1 s/p CE/PCIOL, right eye (05/03/22) -patient is doing well -D/C Moxifloxacin -Continue ketorolac QID until bottle runs out -Taper PF TID X 1 week, BID X 1 week (according to drop schedule given) -Warnings and precautions discussed Cataract, left eye Scheduled for 05/10 Consent form signed previously, medications ordered, instructions given I have reviewed the patient's past medical, [...] Diagnoses Diagnosis Cataract extraction status of eye, right- Primary Combined forms of age-related cataract of left eye Other and combined forms of senile cataract documented in this encounter Eye Exam Visual Acuity (Snellen - Linear) Right eye Left eye Dist sc 20/20 Tonometry (Applanation, 9:31) Right eye Left eye Pressure 13 Neuro/Psych Oriented x3: Yes Mood/Affect: Normal External Exam Right eye Left eye External Normal Normal Slit Lamp Exam Right eye Left eye Lids/Lashes Normal Normal Conjunctiva/Sclera White and quiet White and gaetano et Cornea sealed incisions, tr elida Edema over the incision Clear Anterior Chamber deep, trace Cell Deep and quiet Iris Round and reactive Round and france ctive Lens Toric posterior tamiko valdez intraocular lens at 102 degrees Trace Nuclear sclerosis, 1+ Posterior subcapsular cataract, Vacuoles Fundus Exam Right eye Left eye Disc clear view to posterior pole Manifest Refraction Sphere Cylinder [place] Right eye -0.25 +0.25 168 Left eye Care Teams Ribbon Tier Relationship Specialty Start Date End Date Ramiro Cardenas MD [address] [place] [address] PCP - General 04/24/09 documented as of this encounter
--- OUTSIDE RECORDS SUMMARY | 2024-05-21 01:06 | XMS_ITS | Continuity of Care Document ---
Author Organization [place] - [facility] Address [address] [place] [address] Assessment Encounter Date Assessment Date Assessment LastModified by Organization Details LastModified Time 02/23/2024 02/23/2024 The total time devoted to today's encounter, including both the lmio-bf-wmaw time with the patient and/or family/caregi charity and frt-dtku-je-f elida time I personally spent is 40 minutes. Flu vaccine: current Comirnaty: declines Td: current PCV20: PPSV23 in 2020 Shingrix: n/a RSV: n/a Follow-up in 1 Months. Call or RTO sooner if needs arise. Not available 02/23/2024 09:35:32 Plan of Treatment Reminders Order Date Submit Date Provider Last Modified By Organization Details Last Modified Time Details Appointments Medical Nutrition Therapy 60 2023 02:00P M Not available Not available Not available Office Visit 30 2023 03:00P M Not available Not available Not available Lab None recorded. Referral vascular surgeon referral 2023 024 [email or web address] [facility], [address] [place], [address], 04/23/2024 14:43:43 endocrino logy referral 2023 024 ATHENAFAX [facility], [address] [place], [address], 02/23/2024 14:01:03 Procedures None recorded. Surgeries None recorded. Imaging None recorded. Medication Orders citalopra m 40 mg tablet 2023 024 ОЛЬГА [facility], [address] [place], [address], 02/23/2024 12:06:26 lorazepam 0.5 mg tablet 2023 024 elke [facility], [address] [place], [address], 04/02/2024 10:55:56 Patient TargetsNo targets recorded. Patient InstructionsNo instructions recorded. Reason for Referral Bond Manager Referral for Nodu le of subcutaneous tissue of left foot provider is wondering why this pt has not been contacted yet - resending Referring Physician: Olga Marcus [facility], Encounter Date: 09/23/2023 Sleep Medicine Referral for Obstructive sleep apnea syndrome Referring Physician: Olga Marcus [facility], Encounter Date: 11/07/2023 Urologist Referral for Erect ile dysfunction Referring Physician: Olga Marcus [facility], Encounter Date: 11/07/2023 EGD Referral for Digestive s ystem finding Referring Physician: Olga Marcus [facility], Encounter Date: 11/07/2023 Plastic Surgeon Referral for Gynecomastia Referring Physician: Olga Marcus [facility], Encounter Date: 12/05/2023 Endocrinology Referral for T ype 2 diabetes mellitus without complication Referring Physician: Olga Marcus [facility], Encounter Date: 02/23/2024 Vascular Surgeon Referral fo r Cramp in lower limb Referring Physician: Olga Marcus [facility], Encounter Date: 02/23/2024 Jacquard Lace Weaver Referral f or Type 2 diabetes mellitus without complication referral for Freestyle Lina 3 Referring Physician: Olga Marcus [facility], Encounter Date: 04/02/2024 Physical Therapist Referral for Pain of left shoulder joint Referring Physician: Olga Marcus, Family Medicine, Encounter Date: 04/20/2024 Results Created Date Observation Date Name Description Value Unit Range Abnormal Flag Note LastModifiedBy Organization Detail LastModifiedTime 01/26/20 24 01/26/2024 MRI imagi ng repor t Patien t Name: Charles Nick Unit #: [id number] Loc: DI Orderi ng Provid er: Hollie quangAustin Grabiel DO Accoun t #: [id number] Status : REG CLI Primar y [...] is a 5 mm nodule on the shoddy mill worker ior wall of a loop of small [...] ma. 2. 5 mm nodule along the shoddy mill worker ior wall of a loop of small bowel in the centra l abdome n. This may simply be enteri c conten ts versus mass. 3. No eviden ce of abdomi nal metast atic diseas e. DATA REPOSI TORY: Delfina d By: Austin Torres DO CC: ------ ------ ------ ------ ------ ------ ------ ------ ------ ------ ------ ------ - Dictat ed By: Juan Delacruz M.D. 1507 1507 Transc ribed By: Juan Delacruz 1507 This is privil eged, confid ential inform ation intend ed only for the provid er named. Any use or distri bution by any person other than this [facility] er is strict ly prohib ited. If you receiv e this report in error, please notify us immedi ately at and return the origin al report to us at the addres s above. Thank- you. [facility] [address] [place] [address] Dr, [place], [address] 01/26/2024 15:35:36 01/26/20 24 01/26/2024 MRI imagi ng repor t Patien t Name: Charles Nick Unit #: [id number] Loc: DI Orderi ng Provid er: Austin Torres DO Accoun t #: [id number] Status : REG CLI Primar y [...] measur ing 1.5 cm in length . (Serie s 21855, image 19). Urinar y bladde r: Unrema [...] 1607 160 Transc ribed By: Juan Delacruz 1607 This is privil eged, confid ential inform ation intend ed only for the provid er named. Any use or distri bution by any person other than this provid er is strict ly prohib ited. If you receiv e this report in error, please notify us immedi ately at and return the origin al report to us at the addres s above. Thank- you. [facility] [address] [place], [address] 02/02/2024 18:04:55 02/02/20 24 01/27/2024 PET, skull base to mid-t high No observ ation record ed. ОЛЬГА Not Available 2023 15:50:24 02/26/20 24 02/26/2024 CT imagi ng repor t David t Name: Charles Nick Unit #: [id number] Loc: DI Orderi ng Provid er: Quang Hernandez t #: [id number] Status : REG CLI Primar y [...] tomogr aphy images with valenzuela l and naif al reform atted images were create d [...] facili ty are submit dotty to the [facility] al Radiol ogy Data Regist ry (NRDR) Dose Index Regist ry (DIR) with the [place] an [employer] e of Radiol ogy (ACR). RADIAT ION [...] mGy-cm Ordere d By: Quang Hernandez CC: [facility] ------ ------ ------ ------ ------ ------ ------ ------ ------ ------ ------ ------ ---- Dictat ed By: Juan Delacruz M.D. 1107 1106 Transc ribed By: Juan Delacruz 1107 This is privil eged, confid ential inform ation intend ed only for the provid er named. Any use or distri bution by any person other than this provid er is strict ly prohib ited. If you receiv e this report in error, please notify us immedi ately at [phone] and return the origin al report to us at the addres s above. Thank- you. [address] [place], [address] 02/26/2024 13:16:53 03/24/20 24 03/24/2024 CT imagi ng repor t Patien t Name: Charles Nick Unit #: [id number] Loc: ER Orderi ng Provid er: Rayo Ramos M.D. Accoun t #: [id number] Status : REG ER Primar y [...] h 370. The fluid extend s superi lauar into the [place] [facility] [...] REPOSI TORY: All CT scans at this [facility] ty are submit dotty to the [facility] al Radiol ogy Data Regist ry (NRDR) Dose Index Regist ry (DIR) with the [employer] e of Radiol ogy (ACR). RADIAT ION OPTIMI ZATION : All CT scans at this [facility] use at least one of these dose optimi zation techni ques: automa dotty exposu re contro l; mA and/or kV adjust ment per patien t size (inclu shaw target ed exams where dose is matche d to clinic al indica tion); or iterat kong recons tructi on709- 028: Total DLP = 0.00 mGy-cm Ordere [...] error, please notify us immdaniel maldonado at and return the origin al report to us at the addres s above. Thank- you. [facility] [address], [place], [address] 03/25/2024 04:38:41 03/26/20 24 03/25/2024 elect gerardo may am EKG DAVID T NAME: Charles Nick UNIT #: [id number] ORDERI NG [facility] ER: Kenny Garcia DO ACCOUN T #: [id number] PRIMAR Y CARE PROVID ER: Alexa CHAMBERLAIN APRN DATE/T JOHN OF SERVIC E: 1507 : 1975 DAYNA HARPER LOCATI ON: ER ------ ------ --- APPROV ED REPORT ------ ------ -- Exam: Restin g ECG Reason for Exam: Hypote nsion David t Locati on: E HR:112 bpm ECG Measur ements Heart Rate 112 AXIS [place] 152 P 54 QRSd 103 QRS 70 [...] E-Sign Time: 0008 ------ ------ --- ADDEND APPROV ED REPORT ------ ------ -- Exam: Restin g ECG Reason for Exam: Hypote nsion Patien t Locati on: E HR:112 bpm ECG Measur ements Heart Rate 112 AXIS [place] 152 P 54 QRSd 103 QRS 70 [...] signed by: [id number] Cosign ed by: [email or web address] [place] [address] [place], [address] 03/26/2024 08:57:17 Result Notes None recorded. Problems Name Problem SNOMED Code Status Onset Date Resolution Date Notes Provider Name and Address Organization Details Recorded Time [facility] 31080034 Active 2006 Alieher Crowell [facility]. 4 13:29:59 Nephroti c syndrome 59674154 Completed 200603/03/2007 Not Available [facility] 3 04:42:43 Chronic kidney disease stage 3 831696128 Active 2010 Alie yasmeen [facility]. 4 13:29:40 Obstruct kong sleep apnea syndrome 86345866 [facility] 4 13:30:42 Anxiety 76032458 [facility] 4 13:29:15 Type 2 diabetes mellitus without complica tion 011743283 Active [address] [facility] 4 13:30:59 Obesity 063825614 Active 2015 [facility] 4 13:30:35 Edema 299485426 Active 2015 [facility] 4 13:29:50 Allergy to food 840548403 Active 2016 [facility] 4 13:29:10 Adult health examinat ion Active 2018 [facility] 4 13:29:06 Erectile dysfunct ion 234635388 Active 2018 [facility] 4 13:29:54 Neuropat hy due to type 2 diabetes mellitus 49237894454 9106 Active 2020 [facility] 4 13:30:25 Screenin g for malignan t neoplasm of colon Active 2020 [facility] 4 13:30:50 Digestiv e system finding 077188347 Active 2021 [facility] 4 13:29:44 Vitamin B deficien cy 88398367 Active 2021 [facility] 4 13:31:03 Pre-surg mirta evaluati on Completed 202106/01/2022 Problem Code: Z01.818; Problem Code Type: ICD-10; Not Available [facility] 3 04:42:45 Bilatera l hearing loss 89591241 Active 2021 [facility] 4 13:29:19 Venereal disease screenin g Completed 202108/24/2022 Problem Code: Z11.3; Problem Code Type: ICD-10; Not Available [facility] 3 04:42:45 Hypomagn esemia 956059390 Active 2022 [facility] 4 13:30:11 Secondar y polycyth emia 83139962 Active 2022 [facility] 4 13:30:54 Kidney stone 59527372 Active 2022 [facility] 4 13:30:16 History of polyp of colon 538040228 Active 2022 [facility] 4 13:30:07 Disorder of nasal sinus 6870300 Active 2022 OLGA MARCUS, ORDNANCE OFFICER [address], [place], [address] , [facility] 4 08:08:16 Nonalcoh olic steatohe patitis 156503509 Active 2022 [facility] 4 13:30:32 Body mass index 30+ - obesity 076088390 Active 2022 [facility] 4 13:29:23 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 mellitus 517435381 Active 2022 [facility] 4 13:30:46 Nephroti c syndrome , diffuse membrano us glomerul onephrit is 340768192 Active 2022 [facility] 4 13:30:20 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 12881131711 00 Active 2022 [facility] 4 13:30:03 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 22069319085 00 Completed 202004/10/2021 Problem Code: E11.621; Problem Code Type: ICD-10; [facility] 4 13:30:03 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 58424939976 00 Completed 202007/25/2022 Problem Code: E11.621; Problem Code Type: ICD-10; [facility] 4 13:30:03 Hypergly cemia due to type 2 diabetes mellitus 33344269839 9109 Completed 201608/15/2017 Problem Code: E11.65; Problem Code Type: ICD-10; Not Available [facility] 3 04:42:47 Phimosis 435498996 Completed 201704/29/2022 Problem Code: N47.1; Problem Code Type: ICD-10; Not Available [facility] 3 04:42:47 Snoring 88731770 Completed 201303/01/2016 Not Available [facility] 3 04:42:48 Imaging of abdomen abnormal 757209503 Completed 202212/20/2022 Problem Code: R93.5; Problem Code Type: ICD-10; Not Available [facility] 3 04:42:48 Adult health examinat ion Completed 201403/01/2016 Problem Code: Z00.00; Problem Code Type: ICD-10; [facility] 4 13:29:06 Obesity 306319031 Completed 200606/11/2023 [facility] 4 13:30:35 Fatigue 11043791 Completed 201303/01/2016 Not Available [facility] 3 04:42:48 Acute upper respirat ory infectio n 54413958 Completed 202004/29/2022 Problem Code: J06.9; Problem Code Type: ICD-10; Not Available [facility] 3 04:42:49 Nausea 773342076 Completed 202212/20/2022 Problem Code: R11.0; Problem Code Type: ICD-10; Not Available [facility] 3 04:42:49 Type 2 diabetes mellitus without complica tion 877059640 Completed 202201/10/2023 Problem Code: E11.9; Problem Code Type: ICD-10; Alie dorsey [facility] 13:30:59 Dyssomni a 25808568 Completed 201303/01/2016 Problem Code: 780.59; Problem Code Type: ICD-9; Not Available [facility] 3 04:42:49 Acute bronchit is 42149652 Completed 201708/09/2019 Problem Code: J20.9; Problem Code Type: ICD-10; Not Available [facility] 3 04:42:49 Nausea and vomiting 00540070 Completed 202107/25/2022 Problem Code: R11.2; Problem Code Type: ICD-10; Not Available [facility] 3 04:42:50 Sleep apnea 81905948 Completed 201306/11/2023 Problem Code: 780.57; Problem Code Type: ICD-9; Not Available [facility] 3 04:42:50 Disturba nce of consciou sness 9151884 Completed 201303/01/2016 Problem Code: 780.09; Problem Code Type: ICD-9; Not Available [facility] 3 04:42:50 Acute sinusiti s 61393465 Completed 202004/10/2021 Problem Code: J01.90; Problem Code Type: ICD-10; Not Available [facility] 3 04:42:50 Balaniti s 61557408 Completed 201608/15/2017 Problem Code: N48.1; Problem Code Type: ICD-10; Not Available [facility] 3 04:42:51 Sleep disorder 28577934 Completed 201303/01/2016 Problem Code: 780.50; Problem Code Type: ICD-9; Not Available [facility] 3 04:42:51 Nodule of subcutan eous tissue of left foot 34062788356 524461 Active 2023 OLGA MARCUS APRN [address], [place], [address] , [facility] 4 08:13:06 Benign prostati c hyperpla mercy 122835339 Active 2023 Alie dorsey, [facility] 4 13:31:06 Headache 46462739 Active 2023 OLGA MARCUS APRN [address], [place], [address] , [facility] 4 08:57:45 Gynecoma stia 4234964 Active 2023 Alie dorsey, [facility] 4 13:31:13 Ulcer of left foot 425137481 Active 2023 ARNALDO GOMEZ CMA null, [facility] 4 09:47:50 Fibromat osis of plantar fascia of left foot 70387608691 567570 Active 2023 Alie dorsey, [facility] 4 13:31:10 Carcinom a of duodenum 610414190 Active 2023 EGD 01/06, biopsy at that time OLGA MARCUS APRN [address], [place], [address] , [facility]. 4 09:30:26 Pain of left shoulder joint 47543973134 430507 Active 2023 OLGA MARCUS APRN [address], [place], [address] , [facility]. 4 09:14:45 Cramp in lower limb 804564072 Active 2023 OLGA MARCUS APRN [address], [place], [address] , [facility] 4 09:15:29 Pain in right hip joint 65327967354 9102 Active 2023 OLGA MARCUS APRN [address], [place], [address] , [facility] 4 09:19:09 Prolonge d QT interval 762702626 Active 2023 OLGA MARCUS APRN [address], [place], [address] , [facility] 4 09:53:55 Notes:*Problem Name: Duodena l polyp *Problem Status: active *Comments: *Problem Code: K31.7 *Problem Code Type: ICD-10 *Note Date: 2022 Problem Notes None recorded. Procedures Surgical History Date Name Laterality Status Provider Name and Address Organization Details Recorded Time 4 IV insert completed Kinsey Oliveira RN [facility] 03/24/2024 15:58:08 4 endoscopy completed ARNALDO GOMEZ CMA [facility], [facility] 01/02/2024 15:34:11 Imaging Results None recorded. Procedure Notes None recorded. Medical Equipment None Reported. Allergies Allergen ID Allergen Name Allergen Category Reaction Reaction Severity Criticality Documentation Date Start Date Code Code System Note Provider Name and Address Organization Details Recorded Time 88722 Medicinal product containin g penicilli n and acting as antibacte rial agent (product) medicatio n other mild Not available 11/29/20232006 12347 05 SNOMED Swell ing of throa t Loren Carina [facility] 4 13:58:03 Medications Name Sig Start Date Stop Date Status Note LastModified by Organization Details LastModified Time Prescript ion - Prior Authoriza tion Request active Not Available Not Available Not Available furosemid e 40 mg tablet TAKE 1 TABLET BY MOUTH TWICE A DAY 03/11 completed Changed dosing per [facility] 03/08/24 Not Available Not Available Not Available acetamino phen 325 mg tablet Take 2 tablets every 8 hours by oral route as needed. active Per [facility] d/c summary 04/01/24 Not Available Not Available [...] HCl 150 mg capsule active Stopped per [facility] d/c summary 04/01/24 Not Available Not Available [...] MOUTH EVERY DAY NEEDED active Stopped per [facility] d/c summary 04/01/24 Not Available Not Available [...] every day by oral route. active Per [facility] d/c summary continue 04/01/24 Not Available Not [...] MOUTH EVERY DAY 04/23 completed Stopped per [facility] d/c summary 04/01/24 Not Available Not Available [...] Available No t Available FreeStyle Lina 3 Agness USE DIRECTED active Not Available Not Available No t Available Vitals Date Recorded Body height Body mass index (BMI) Body weight Oxygen saturation Oxygen saturation in Arterial blood by Pulse oximetry Heart rate Systolic blood pressure Diastolic blood pressure Provider Name and Address Organization Details Last Updated DateTime 4 186.69 cm 37.9 kg/m2 832267. 18 g 96 % 96 % 86 /min 148 mm[Hg] 96 mm[Hg] ARNALDO GOMEZ CMA [facility] 09:06:22 Date Recorded Systolic blood pressure Diastolic blood pressure Provider Name and Address Organization Details Last Updated DateTime 02/23/2024 132 mm[Hg] 88 mm[Hg] OLGA MARCUS APRN [address], [place], [address] 02/23/2024 09:24:02 Social History Question Answer Notes LastModified by Organizat ion Details LastModified Time Tobacco Smoking Status Never Smoker ARNALDO GOMEZ CMA null, [facility] 12/05/2023 08:46:50 What [...] preservative free, adsorbed 04/22/2017 completed Not Available [facility] 07/25/2023 06:32:54 Tdap 02/27/2007 completed Not Available [facility] 06:32:54 Influenza, split virus, quadrivalent, PF 09/21/2020 completed Not Available [facility] 07/25/2023 06:32:54 Influenza, split virus, quadrivalent, PF 06/19/2021 completed Not Available [facility] 07/25/2023 06:32:54 Influenza, split virus, quadrivalent, PF 08/02/2019 completed Not Available [facility] 07/25/2023 06:32:54 COVID-19 vaccine, vector-nr, rS-Ad26, PF, 0.5 mL 01/19/2021 completed Not Available [facility] 07/25/2023 06:32:54 pneumococcal polysaccharide PPV23 09/21/2020 completed Not Available [facility] 2022 06:32:54 influenza, unspecified formulation 07/05/2016 completed Not Available [facility] 07/25/2023 06:32:54 influenza, unspecified formulation 07/16/2017 completed Not Available [facility] 07/25/2023 06:32:54 Influenza, split virus, quadrivalent, PF 06/17/2023 completed Not Available [facility] 09/26/2023 05:33:26 Past Encounters Encounter ID Performer Location Encounter Start Date Encounter Closed Date Diagnosis/Indication Diagnosis SNOMED-CT Code Diagnosis ICD10 Code [id number] STEPHANI JOHNSON [address] [address] 02/02/2024 10:48:13 02/02/2024 11:14:25 Chronic kidney disease stage 3 448193763 N18.30 Essential hypertension 14232599 I10 N18.9 R60.9 Type 2 makayla betes mellitus without complication 971389847 E11.9 E11.40 [id number] OLGA MARCUS APRN [address] [address] 02/23/2024 08:58:06 02/23/2024 09:59:23 Type 2 diabetes mellitus without complication 899859807 E11.9 E11.40 Essential hypertension 89074214 I10 N18.9 R60.9 Anxiety 79761667 F41.9 F32.A Z73.3 Obstructiv e sleep apnea syndrome 14983041 G47.33 Body mass index 30+ - obesity 613309943 Z68.36 Digestive system finding 041873658 R19.8 Nonalcohol ic steatohepatitis 005312775 K75.81 Secondary polycythemia 06532723 D75.1 Disorder o f nasal sinus 3180788 J34.9 Nephrotic syndrome, diffuse membranous glomerulonephritis 822203124 N04.20 Nodule of subcutaneous tissue of left foot 1427626795 3763560 R22.42 Erectile dysfunction 860 497317 F52.21 Benign pro static hyperplasia 137811017 N40.0 Carcinoma of duodenum 25 3805246 C17.0 Pain of le ft shoulder joint 1164473483 7450879 M25.512 Cramp in lower limb 4499 91502 R25.2 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 6354701527 100 E11.621 Pain in ri ght hip joint 3220654208 83747 M25.551 Health Concerns Section Related Observation LastModified by Organization Detai ls LastModified Time None Recorded Concern Status LastModified by Organization Details LastModified Time None Recorded Payers Encounter Date Sequence Insurance Name Policy Number Policy Loo Covered Member ID Loo Member ID Guarantor Name 02/23/2024 1 [facility] [id number] Charles Hernandez [id number] Charles Nick Notes Date Note Type Note [...] why he needs the surgery. OLGA MARCUS, ORDNANCE OFFICER [address], [place], [address], [place] [facility]. 02/23/2024 12:08:46
--- OUTSIDE RECORDS SUMMARY | 2024-05-21 01:06 | XMS_ITS | Encounter Summary ---
Author Organization [facility] Address [address] [place] [address] Care Team Providers Care [employer] Counter Person Name Role Phone Ramiro Cardenas MD Primary Care Provider [phone] Reason for Visit * Reason Comments Cataract Cataract evaluation - both eyes * Consult, Test and Treat (Routine) - Authorization Not Required Specialty Diagnoses / Procedures Referred By Contnina t Referred To Contact Ophthalmology Diagnoses Cortical age-related cataract, bilateral Mohan Butcher, OD [address] [place] [address] Ezequiel Andrea MD [address] [place] [phone] Referral ID Status Reason Start Date Expiration Date Visits Requested Visits Authorized [id number] Authorization Not Required 1 1 Encounter Details Date Type Department Care Team (Late st Contact Info) Description 02/13/2022 10:00 EDT Office Visit [facility] Ophthalmology [address] [phone] Ezequiel Andrea MD [address] [place] [phone] Social History Tobacco Use Types Packs/Day Years Used Date Smoking Tobacco: Never Smokeless Tobacco: Never Sex and Gender Information Value Date Recorded Sex Assigned at Not on file Gender Identity Male 05/03/2022 9:53 EDT Sexual Orientation Not on file documented as of this encounter Patient Instructions * Patient Instructions* Ezequiel Andrea MD - 02/13/2022 10:00 EDT Please make an appointment with your Primary Doctor for a pre-operative physical. Try to schedule for about 7-10 days prior to your surgery (April 26-) Your lens measurement appointment is: February 27 at 11 AM at our office [address], MILAN Stovall Your surgery date is: May 03 (right eye), May 10 (left eye) at [facility] (check in at Patient Registration). The Hospital will call you prior to the surgery with your report time. documented in this encounter Progress Notes * Ezequiel Andrea MD - 02/13/2022 1000 EDT Chief Complaint Patient presents with ??? Cataract Cataract evaluation - both eyes HPI The patient is a 46 y.o. male here for evaluation of cataracts, both eyes. Patient is diabetic witha last A1C of 7. He reports decreasing vision over the past few years. Glare is bothersome when driving at night in both eyes. At times vision seems doubled or tripled in either eye, together or individually. he has no eye pain, double vision, or new flashes/floaters. Right Eye: Blurred Vision, Floaters, Glare or Light Sensitivity, Problem with Night Vision Left Eye: Blurred Vision, Floaters, Glare or Light Sensitivity, Problem with Night Vision Visual Aid: Glasses Current Rx Age Location: Pain: 0 - No pain Quality: Severity: Duration: Timing: Lasts: Context: Last A1C was 7. He reports his vision has been getting worse for a few years. He has been very sensitive to glare when driving at night. He has double vision at times. He has floaters. No flashes or pain in the eyes. Modifying factors: Associated Signs & Symptoms: Attestation: ROS Constitutional: NL ENT/Mouth NL Cardiovascular: High Blood Pressure Respiratory: NL Gastrointestinal: NL Genitourinary: NL Musculoskeletal: NL Integumentary: NL Neurologic: NL Psychiatric: NL Endocrine: Diabetes Hematologic: NL Immunologic: Drug Allergy Centrifugal Casting Machine Tender: Exposures: None Other: Attestation: Base Eye Exam Visual Acuity (Snellen - Linear) Right Left Dist cc 20/60 -2 20/30 -1 Tonometry (Applanation, 10:37) Right Left Pressure 17 16 Pupils Pupils Dark APD Right PERRL 2 None Left PERRL 2 None Neuro/Psych Oriented x3: Yes Mood/Affect: Normal Dilation Both eyes: Phenylephrine 2.5%, Tropicamide 1% @ 10:39 Additional Tests Glare Testing (BAT) Off High Right 20/50-1 20/80 Left 20/25 20/25 Slit Lamp and Fundus Exam External Exam Right Left External Normal Normal Slit Lamp Exam Right Left Lids/Lashes Normal Normal Conjunctiva/Sclera White and quiet White and quiet Cornea Clear Clear Anterior Chamber Deep and quiet Deep and quiet Iris Round and reactive Round and reactive Lens Trace Nuclear sclerosis, 2+ Posterior subcapsular cataract Trace Nuclear sclerosis, 1+ Posterior subcapsular cataract, Vacuoles Fundus Exam Right Left Vitreous Normal Normal Disc Healthy Rim Healthy Rim C/D Ratio 0.3 0.3 Macula Normal, no MA's Normal, no MA's Vessels Normal Normal Periphery Normal, no retinopathy Normal, no retinopathy Refraction Wearing Rx Sphere Cylinder [place] Right -5.00 +1.00 133 Left -4.75 +1.50 082 Age: 1yrs Manifest Refraction (Auto) Sphere Cylinder [place] Dist VA Right -7.25 +2.00 085 Left -6.00 +2.75 073 Manifest Refraction #2 Sphere Cylinder [place] Dist VA Right -5.00 +1.00 135 20/50-1 Left -5.25 +1.50 080 20/25 DIAGNOSTIC TESTING/PROCEDURES: IMPRESSION & PLAN: 1. Cataract, both eye(s) Visually significant both, The patient's visual symptoms cannot be adequately improved with a change in glasses. Additional eye conditions including diabetes have been evaluated and do not appear to contribute the patient's visual difficulties. -Discussed cataract surgery in detail including risks (including but not limited to infection, retinal detachment, loss of vision/eye, corneal/macular edema, need for additional surgery), benefits, and alternatives and the patient elects to proceed with the RIGHT eye first. -The patient was given an informational pamphlet -Return for biometry and IOL calculations, BOTH eyes (02/27 @ 11 AM) Surgical plannin/19 & 05/10 Flomax (Tamsulosin): No Pupil dilation: 7.0 mm Blood thinners: no Able to lie flat: yes Pseudoexfoliation: yes Corneal guttae: yes History of refractive surgery: no Risk for anisometropia: low Refractive aim: [place] Referred by: Mohan Butcher, OD ([facility]) 2. Diabetes mellitus Right eye: No retinopathy Left eye: No retinopathy -Recommend good blood sugar and blood pressure control -Copy of note sent to PCP I have reviewed the patient's past medical, family, social and surgical history. I have also reviewed the patient's medications, allergies, and problem list. I performed my own HPI and have reviewed the tech's ROS as well. I completed this exam personally. Ezequiel Andrea MD I am scribing for Ezequiel Andrea MD, while he is personally performing the service. DANIELA Vaughan Patient Education Topic: cataract surgery Method: Verbal Taught to: Patient Barriers: None Outcomes: independent Signature: Ezequiel Andrea MD documented in this encounter Plan of Treatment Not on file documented as of this encounter Visit Diagnoses Diagnosis Combined form of senile cataract of right eye- Primary Combined form of senile cataract of left eye documented in this encounter Historical Medications * This list may reflect changes made after this encounter. Medication Sig Dispensed Refills Start Date End Date metFORMIN (GLUCOPHAGE) 1,000 mg tablet Take 1,000 mg by mouth 2 times daily. gabapentin (NEURONTIN) 600 mg tablet Take 600 mg by mouth 3 times daily. insulin detemir U-100 (LEVEMIR U-100 INSULIN) 100 unit/mL injection Inject into the skin at bedtime. furosemide (LASIX) 40 mg tablet Take 40 mg by mouth daily. valsartan (DIOVAN) 40 mg tablet Take 40 mg by mouth 2 times daily. tadalafiL (CIALIS) 10 mg tablet Take 10 mg by mouth daily. glimepiride (AMARYL) 4 mg tablet Take 4 mg by mouth daily. added in this encounter Eye Exam Visual Acuity (Snellen - Linear) Right eye Left eye Dist cc 20/60 -2 20/30 -1 Tonometry (Applanation, 10:37) Right eye Left eye Pressure 17 16 Pupils Pupils Dark APD Right eye PERRL 2 None Left eye PERRL 2 None Neuro/Psych Oriented x3: Yes Mood/Affect: Normal Dilation Both eyes: Phenylephrine 2.5 %, Tropicamide 1% @ 10:39 Glare Testing (BAT) Off High Right eye 20/50-1 20/80 Left eye 20/25 20/25 External Exam Right eye Left eye External Normal Normal Slit Lamp Exam Right eye Left eye Lids/Lashes Normal Normal Conjunctiva/Sclera White and quiet White and gaetano et Cornea Clear Clear Anterior Chamber Deep and quiet Deep and quiet Iris Round and reactive Round and france ctive Lens Trace Nuclear sclero sis, 2+ Posterior subcapsular cataract Trace Nuclear sclerosis, 1+ Posterior subcapsular cataract, Vacuoles Vitreous Normal Normal Fundus Exam Right eye Left eye Disc Healthy Rim Healthy Rim C/D Ratio 0.3 0.3 Macula Normal, no MA's Normal, no MA's Vessels Normal Normal Periphery Normal, no retinopathy Normal, n o retinopathy Wearing Rx Sphere Cylinder [place] Right eye -5.00 +1.00 133 Left eye -4.75 +1.50 082 Age: 1yrs Manifest Refraction #1 (Auto) Sphere Cylinder [place] Dist VA Right eye -7.25 +2.00 085 Left eye -6.00 +2.75 073 Manifest Refraction #2 Sphere Cylinder [place] Dist VA Right eye -5.00 +1.00 135 20/50-1 Left eye -5.25 +1.50 080 20/25 Care Teams Auto Parts Counter Person Relationship Specialty Start Date End Date Ramiro Cardenas MD [address] [place] [address] PCP - General 04/24/09 documented as of this encounter
--- OUTSIDE RECORDS SUMMARY | 2024-05-21 01:06 | XMS_ITS | Encounter Summary ---
Author Organization [facility] Address [address] [place] [address] Care Team Providers Care Conference Director Name Role Phone Ramiro Cardenas MD Primary Care Provider Reason for Visit * Reason Comments Post-OP Follow Up POM #1 s/p CE/PCIOL, both eyes (Right: 05/03/22 & Left: 05/10/22) Encounter Details Date Type Department Care Team (Latest Contact Info) Description 06/10/2022 9:00 EDT Post-op Visit [facility] Ophthalmology [facility] [address] [place] [address] Ezequiel Andrea MD [address] [place] [phone] Cataract extraction status of eye, left (Primary Dx); Cataract extraction status of eye, right Social History Tobacco Use Types Packs/Day Years [...] as of this encounter Progress Notes * Ezeuqiel Andrea MD - 06/10/2022 0900 EDT Chief Complaint: Pseudophakia, Cataract Post-Op Month 1, both eye(s) HPI POM #1 s/p CE/PCIOL, both eyes (Right: 05/03/22 & Left: 05/10/22). Distance vision is doing well without correction. Using different strengths of OTC readers depending on work or other tasks being done. he has no eye pain, double vision, or new flashes/floaters. Has finished all post-operative eye drops. Location: Both eyes Pain: 0 - No pain Quality: Severity: Duration: Weeks Timing: Lasts: Context: POM #1 s/p CE/PCIOL, both eyes (Right: 05/03/22 & Left: 05/10/22) Modifying factors: Distance vision is doing well. Denies floaters, flashes or eye pain. Has finished all post-op drops. Gets twitching that lasts about 10 seconds with right eye, sometimes svereal times in a day. Associated Signs & Symptoms: Visual Fluctuations: None Attestation: Base Eye Exam Visual Acuity (Snellen - Linear) Right Left Dist sc 20/25 +1 20/20 Tonometry (Applanation, 9:24) Right Left Pressure 18 18 Pupils Pupils APD Right PERRL None Left PERRL None Neuro/Psych Oriented x3: Yes Mood/Affect: Normal Dilation Both eyes: Tropicamide 0.5% @ 9:24 Slit Lamp and Fundus Exam External Exam Right Left External Normal Normal Slit Lamp Exam Right Left Lids/Lashes Normal Normal Conjunctiva/Sclera White and quiet White and quiet Cornea Sealed incisions Sealed incisions Anterior Chamber Deep and quiet, Deep and quiet Iris Round and reactive Round and reactive Lens Toric posterior chamber intraocular lens at 102?? Toric posterior chamber intraocular lens at 80?? Fundus Exam Right Left Vitreous Normal Normal Disc Healthy rim, clear view to posterior pole Healthy rim, clear view to posterior pole C/D Ratio 0.2 0.25 Macula Normal, no MA's Normal, no MA's Vessels Normal Normal Periphery Normal, no retinopathy Normal, no retinopathy Refraction Wearing Rx Sphere Cylinder Right +1.25 Sphere Left +1.25 Sphere Type: OTCs Manifest Refraction (Auto) Sphere Cylinder [place] Dist VA Add Right -0.25 Sphere Left -0.25 +0.25 141 Manifest Refraction #2 Sphere Cylinder [place] Dist VA Add Right -0.25 Sphere 20/20 +1.50 Left -0.25 Sphere 20/20 +1.50 IMPRESSION & PLAN: POM #1 s/p CE/PCIOL, both eyes (Right: 05/03/22 & Left: 05/10/22) -The patient is doing well -Finished with eye drops -Recommend AT's PRN for burning -Continue use of OTC reading glasses -Resume care with local pet house sitter. Return here as needed I have reviewed the patient's past medical, family, social and surgical history. I have also reviewed the patient's medications, allergies, and problem list. I performed my own HPI and have reviewed the [facility]'s ROS as well. I personally completed this exam myself. Ezequiel Andrea MD documented in this encounter Plan of Treatment Not on file documented as of this encounter Visit Diagnoses Diagnosis Cataract extraction status of eye, left- Primary Cataract extraction status of eye, right documented in this encounter Eye Exam Visual Acuity (Snellen - Linear) Right eye Left eye Dist sc 20/25 +1 20/20 Tonometry (Applanation, 9:24) Right eye Left eye Pressure 18 18 Pupils Pupils APD Right eye PERRL None Left eye PERRL None Neuro/Psych Oriented x3: Yes Mood/Affect: Normal Dilation Both eyes: Tropicamide 0.5% @ 9:24 External Exam Right eye Left eye External Normal Normal Slit Lamp Exam Right eye Left eye Lids/Lashes Normal Normal Conjunctiva/Sclera White and quiet White and gaetano et Cornea Sealed incisions Sealed incision s Anterior Chamber Deep and quiet, Deep and quiet Iris Round and reactive Round and france ctive Lens Toric posterior tamiko valdez intraocular lens at 102?? Toric posterior chamber intraocular lens at 80?? Vitreous Normal Normal Fundus Exam Right eye Left eye Disc Healthy rim, clear v iew to posterior pole Healthy rim, clear view to posterior pole C/D Ratio 0.2 0.25 Macula Normal, no MA's Normal, no MA's Vessels Normal Normal Periphery Normal, no retinopathy Normal, n o retinopathy Wearing Rx Sphere Cylinder Right eye +1.25 Sphere Left eye +1.25 Sphere Type: OTCs Manifest Refraction #1 (Auto) Sphere Cylinder [place] Dist VA Add Right eye -0.25 Sphere Left eye -0.25 +0.25 141 Manifest Refraction #2 Sphere Cylinder [place] Dist VA Add Right eye -0.25 Sphere 20/20 +1.50 Left eye -0.25 Sphere 20/20 +1.50 Care Teams Conference Director Relationship Specialty Start Date End Date Ramiro Cardenas MD [address] [place] [address] PCP - General 04/24/09 documented as of this encounter
--- OUTSIDE RECORDS SUMMARY | 2024-05-21 01:06 | XMS_ITS | Encounter Summary ---
Author Organization [facility] Address [address] [place] [address] Care Team Providers Care Director Client Name Role Phone Ramiro Cardenas MD Primary Care Provider [phone] Reason for Visit * Reason Onset Date Comments Post-OP Follow Up 05/03/2022 POD#0 CE PCIOL , right eye Encounter Details Date Type Department Care Team (Latest Contact Info) Description 05/03/2022 13:45 EDT Post-op Visit [facility] Ophthalmology [facility] [address], [place] [phone] Ezequiel Andrea MD [address] [place] [phone] Cataract extraction status of eye, right (Primary Dx) Social History Tobacco Use Types [...] Progress Notes * Ezequiel Andrea MD - 05/03/2022 2516 EDT Chief Complaint: Pseudophakia, Cataract Post-Op Day 0, right eye HPI The patient is a 46 y.o. male, POD #0 s/p cataract extraction with PCIOL, right eye. There is no pain. HPI Location: Right eye Pain: 0 - No pain Quality: Severity: Mild Duration: Hours Timing: Lasts: Context: POD#0 CE PCIOL, right eye (05/03/22) eye feeling good Modifying factors: FIrst set of post op drops given. Associated Signs & Symptoms: Visual Fluctuations: Attestation: Base Eye Exam Visual Acuity (Snellen - Linear) Right Left Dist sc 20/25 -2 Tonometry Right Left Pressure 18 Pupils Dark Right PHARM DILATED Left Neuro/Psych Oriented x3: Yes Mood/Affect: Normal Slit Lamp and Fundus Exam External Exam Right Left External Normal Normal Slit Lamp Exam Right Left Lids/Lashes Normal Normal Conjunctiva/Sclera White and quiet White and quiet Cornea sealed incisions, 1+ Edema, 1+ Punctate epithelial erosions Clear Anterior Chamber deep, 2+ Cell Deep and quiet Iris Dilated Round and reactive Lens Toric posterior chamber intraocular lens at 102 degrees Trace Nuclear sclerosis, 1+ Posterior subcapsular cataract, Vacuoles Fundus Exam Right Left Disc slightly hazy view to posterior pole IMPRESSION & PLAN: POD #0 s/p Cataract Extraction with toric PCIOL, right eye -patient is doing well -Use Moxifloxacin, [...] my own HPI and have reviewed the [facility]'s ROS as well. I personally completed this exam myself. Ezequiel Andrea MD documented in this encounter Plan of Treatment Not on file documented as of this encounter Visit Diagnoses Diagnosis Cataract extraction status of eye, right- Primary documented in this encounter Eye Exam Visual Acuity (Snellen - Linear) Right eye Left eye Dist sc 20/25 -2 Tonometry Right eye Left eye Pressure 18 Pupils Dark Right eye PHARM DILATED Left eye Neuro/Psych Oriented x3: Yes Mood/Affect: Normal External Exam Right eye Left eye External Normal Normal Slit Lamp Exam Right eye Left eye Lids/Lashes Normal Normal Conjunctiva/Sclera White and quiet White and gaetano et Cornea sealed incisions, 1+ Edema, 1+ Punctate epithelial erosions Clear Anterior Chamber deep, 2+ Cell Deep and quiet Iris Dilated Round and reacti ve Lens Toric posterior tamiko valdez intraocular lens at 102 degrees Trace Nuclear sclerosis, 1+ Posterior subcapsular cataract, Vacuoles Fundus Exam Right eye Left eye Disc slightly hazy view to posterior pole Care Teams Director Client Relationship Specialty Start Date End Date Ramiro Cardenas MD [address] [place] [address] PCP - General 04/24/09 documented as of this encounter
--- OUTSIDE RECORDS SUMMARY | 2024-05-21 01:07 | XMS_ITS | Encounter Summary ---
Author Organization [facility] Address [facility] [place] [address] Care Team Providers Care Helper/Driver Name Role Phone Olga Hoffman APRN Primary Care Provider [phone] Encounter Details Date Type Department Care Team (Late st Contact Info) Description 05/06/2024 Orders Only Hematology and Oncology at [facility] [place] [phone] Rodriguez Fowler MD [facility] [place] [place] [address] Social History Tobacco Use Types Packs/Day Years Used Date Smoking Tobacco: Never Smokeless Tobacco: Never Alcohol Use Standard Drinks/Week Comments Not Currently 0 (1 standard drink = 0.6 oz pur e alcohol) [facility] Utilities Answer Date Recorded In the past 12 months has [employer], gas, oil, or water [employer] threatened to shut off services in your home? No 03/25/2024 Overall Financial Resource Strain (CARDIA) Answe r Date Recorded How hard is it for you to pa y for the very basics like food, housing, medical care, and heating? Somewhat hard 01/23/2023 Hunger Vital Sign Answer Date Recorded Within the past 12 months, y ou worried that your food would run out before you got the money to buy more. Never true 03/25/20 24 Within the past 12 months, t he food you bought just didn't last and you didn't have money to get more. Never true 03/25/2024 PRAPARE - Transportation Answer Date Re corded In the past 12 months, has l ack of transportation kept you from medical appointments or from getting medications? No 03/15 In the past 12 months, has l ack of transportation kept you from meetings, work, or from getting things needed for daily living? No 03/25/2024 Housing Stability Vital Sign Answer Alexander e Recorded In the last 12 months, was t here a time when you were not able to pay the mortgage or rent on time? No 01/23/2023 In the last 12 months, how many places have you lived? 1 01/23/2023 In the last 12 months, was t here a time when you did not have a steady place to sleep or slept in a long term (including now)? No 01/23/2023 Housing Stability Vital Sign Answer Alexander e Recorded In the last 12 months, was t here a time when you were not able to pay the mortgage or rent on time? No 03/25/2024 In the past 12 months, how m any times have you moved where you were living? 0 03/25/2024 At any time in the past 12 m [facility], were you homeless or living in a long term (including now)? No 03/25/2024 IPV Inpatient Questions Answer Date Recorded Does Anyone Try to Keep You From Having Contact with Others or Doing Things Outside Your Home? no 03/24/2024 Feels Threatened by Someone no 03/15 Feels Unsafe at Home or Work/School no 03/24/2024 Physical Signs of Abuse Present no 03/24/2024 Sex and Gender Information Value Date Recorded Sex Assigned at Not on file Gender Identity Not on file Sexual Orientation Not on file documented as of this encounter Plan of Treatment Upcoming Encounters Date Type Department Care Team (Late st Contact Info) Description 05/21/2024 9:00 AM EDT Office [place] [address] Nighat López MD [facility] [place] [address] 05/28/2024 8:00 AM EDT Office Visit Hematology/Oncology at [address] [phone] Rodriguez Fowler MD [facility] [place] [address] Sherry Cedillo APRN [address] [place] [address] DR HEMATOLOGY AND ONCOLOGY [place], [place] [id number] 05/28/2024 8:30 AM EDT Infusion Hematology Oncology at [address] [phone] 05/28/2024 9:30 AM EDT Clinical Support Hematology/Oncology at [address] [phone] [facility] DR [place] [address] documented as of this encounter Visit Diagnoses Not on filedocumented in this encounter Care Teams Helper/Driver Relationship Specialty Start Date End Date Olga Hoffman APRN [address] [place] [address] PCP - General Family Medicine 10/30/22 documented as of this encounter
--- OUTSIDE RECORDS SUMMARY | 2024-05-21 01:07 | XMS_ITS ---
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 Discussed increase in lasix versus monitoring and working on lifestyle. Work on diet, weight loss and improving bowels. If at next visit, not improving, will adjust meds. Problem Code: I10; Problem Code Type: ICD-10; Current Oncology Plans BCN AMB ONC GI COLORECTAL CANCER - FOLFOX-6 (14 DAY)* Plan Start Date: 05/07/2024 Plan Provider:Rodriguez Fowler MD Linked Problems Duodenal adenocarcinoma Treatment Medications Current Day (Day 1 , Cycle 1 - Planned for 05/07/2024) Next Day (Day 3, Cycle 1 - Planned for 05/09/2024) fluorouraciL (ADRUCIL)fluorouraciL (AdruciL) in sodium chloride 0.9% 138 mL infusion (46 Hour - For Home Use)leucovorin (Wellcovorin) in dextrose 5% or sodium chloride 0.9% for infusionoxaliplatin (Eloxatin)OXALIplatin (Eloxatin) in dextrose 5% 250 mL infusionPump Disconnect: Home Infusion fluorouraciL (ADRUCIL) chemo injection 992 mgfluorouraciL (AdruciL) in sodium chloride 0.9% 138 mL infusion (46 Hour - For Home Use) 5,952 mgleucovorin (Wellcovorin) 350 mg in dextrose 5% 85 mL infusionOXALIplatin (Eloxatin) 150 mg in dextrose 5% 280 mL infusion Home Infusion: Pump Disconnect Past Plans No past plan information found. Radiation Treatments * No radiation treatments are documented for this patient in [facility]. Treatments may have been administered in another system. 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
--- OUTSIDE RECORDS SUMMARY | 2024-05-21 01:07 | XMS_ITS | Encounter Summary ---
Author Organization [facility] Address [facility] [place] [address] Care Team Providers Care Fountain Dispenser Name Role Phone Olga Hoffman APRN Primary Care Provider [phone] Encounter Details Date Type Department Care Team (Latest Contact Info) Description 05/12/2024 Travel Social History Tobacco Use Types Packs/Day Years Used Date Smoking Tobacco: Never Smokeless Tobacco: Never Alcohol Use Standard Drinks/Week Comments Not Currently 0 (1 standard drink = 0.6 oz pur e alcohol) [facility] Utilities Answer Date Recorded In the past 12 months has e electric, gas, oil, or water company threatened to shut off services in your [...] place to sleep or slept in a halfway (including now)? No 01/23/2023 Housing Stability Vital Sign Answer Alexander e Recorded In the last 12 months, was t here a time when you were not able to pay the mortgage or rent on time? No 03/25/2024 In the past 12 months, how m any times have you moved where you were living? 0 03/25/2024 At any time in the past [address] [facility], were you homeless or living in a halfway (including now)? No 03/25/2024 IPV Inpatient Questions [...] 9:00 AM EDT Office [place] [address] López MD [facility] [place] [address] 05/28/2024 8:00 AM EDT Office Visit Hematology/Oncology at [address] [phone] [facility] [place] [address] Sherry Cedillo APRN [address] [place] [address] DR HEMATOLOGY [place] [address] 05/28/2024 8:30 AM EDT Infusion Hematology Oncology at [address] [phone] 05/28/2024 9:30 AM EDT Clinical Support Hematology/Oncology at [address] [phone] Leah Rose, RD [facility] DR [place]ATOLOGY [place] [address] documented as of this encounter Visit Diagnoses Not on filedocumented in this encounter Care Teams Fountain Dispenser Relationship Specialty Start Date End Date Olga Hoffman APRN [address] [place] [address] PCP - General Family Medicine 10/30/22 documented as of this encounter
--- OUTSIDE RECORDS SUMMARY | 2024-05-21 01:07 | XMS_ITS | Encounter Summary ---
Author Organization [facility] Address [facility] [place] [address] Care Team Providers Care Erp Business Analyst Name Role Phone Olga Hoffman APRN Primary Care Provider [phone] Encounter Details Date Type Department Care Team (Late st Contact Info) Description 04/28/2024 [place] [phone] Silvio Wheeler MD [facility] [place]VENTION[place] [address] Social History Tobacco Use Types Packs/Day Years Used Date Smoking Tobacco: Never Smokeless Tobacco: Never Alcohol Use Standard Drinks/Week Comments Not Currently 0 (1 standard drink = 0.6 oz pur e alcohol) [facility] Utilities Answer Date Recorded In the past 12 months has [employer], gas, oil, or water [employer] threatened to shut off services in your [...] place to sleep or slept in a [place] (including now)? No 01/23/2023 Housing Stability Vital Sign Answer Alexander e Recorded In the last 12 months, was t here a time when you were not able to pay the mortgage or rent on time? No 03/25/2024 In the past 12 months, how m any times have you moved where you were living? 0 03/25/2024 At any time in the past 12 m [facility], were you homeless or living in a [place] (including now)? No 03/25/2024 IPV Inpatient Questions [...] as of this encounter Progress Notes * Silvio Wheeler MD - 04/28/2024 4:38 PM EDT IR note Per Dr. Hernandez, Mr. Nick continues to do well but has persistent 10Fr drainage catheter output of 300 cc a day after having gone from bulb to bag drainage on 04/21/2024. Drainage felt to be pancreatic fluid due to hole in bowel, see selected image in 04/21/2024 report. Will plan to see Mr. Nick for conversion of his drainage catheter to a smaller diameter pigtail drainage catheter, Justin. documented in this encounter Plan of Treatment Upcoming Encounters Date Type Department Care Team (Late st Contact Info) Description 05/21/2024 9:00 AM EDT Office [place] [address] Nighat López MD [facility] DR [place] [address] 05/28/2024 8:00 AM EDT Office Visit Hematology/Oncology at [address] [phone] Rodriguez Fowler MD [facility] [place] [address] Sherry Cedillo APRN [address] [place] [address] DR HEMATOLOGY AND ONCOLOGY [place], [place] [id number] 05/28/2024 8:30 AM EDT Infusion Hematology Oncology at [address] [phone] 05/28/2024 9:30 AM EDT Clinical Support Hematology/Oncology at [address] [phone] [facility] DR HEMATOLOGY [place] [address] documented as of this encounter Visit Diagnoses Not on filedocumented in this encounter Care Teams Erp Business Analyst Relationship Specialty Start Date End Date Olga Hoffman APRN [address] [place] [address] PCP - General Family Medicine 10/30/22 documented as of this encounter
--- OUTSIDE RECORDS SUMMARY | 2024-05-21 01:07 | XMS_ITS | Encounter Summary ---
Author Organization [facility] Address [facility] [place] [address] Care Team Providers Care Laundry Machine Mechanic Name Role Phone Olga Hoffman APRN Primary Care Provider [phone] Encounter Details Date Type Department Care Team (Latest Contact Info) Description 05/20/2024 Travel Social History Tobacco Use Types Packs/Day Years Used Date Smoking Tobacco: Never Smokeless Tobacco: Never Alcohol Use Standard Drinks/Week Comments Not Currently 0 (1 standard drink = 0.6 oz pur e alcohol) [facility] Utilities Answer Date Recorded In the past [...] place to sleep or slept in a nursing home (including now)? No 01/23/2023 Housing Stability Vital Sign Answer Alexander e Recorded In the last 12 months, was t here a time when you were not able to pay the mortgage or rent on time? No 03/25/2024 In the past 12 months, how m any times have you moved where you were living? 0 03/25/2024 At any time in the past 12 m [facility], were you homeless or living in a nursing home (including now)? No 03/25/2024 IPV Inpatient Questions [...] 9:00 AM EDT Office [place] [address] Nighat López MD [facility] [place] [address] 05/28/2024 8:00 AM EDT Office Visit Hematology/Oncology at [address] [phone] Rodriguez Fowler MD [facility] [place] [address] Sherry Cedillo APRN [address] [place] [address] DR [place] [address] 05/28/2024 8:30 AM EDT Infusion Hematology Oncology at [address] [phone] 05/28/2024 9:30 AM EDT Clinical Support Hematology/Oncology at [address] [phone] Leah Rose, RD [facility] DR [place] [address] documented as of this encounter Visit Diagnoses Not on filedocumented in this encounter Care Teams Laundry Machine Mechanic Relationship Specialty Start Date End Date Olga Hoffman APRN [address] [place] [address] PCP - General Family Medicine 10/30/22 documented as of this encounter
--- OUTSIDE RECORDS SUMMARY | 2024-05-21 01:07 | XMS_ITS | Encounter Summary ---
Author Organization [facility] Address [facility] [place] [address] Care Team Providers Care Men'S Designer Name Role Phone Olga Hoffman APRN Primary Care Provider [phone] Encounter Details Date Type Department Care Team (Late st Contact Info) Description 05/06/2024 Orders Only Hematology and Oncology at [facility] [place] [phone] Rodriguez Fowler MD [facility] [place] [address] Social History Tobacco Use Types Packs/Day Years Used Date Smoking Tobacco: Never Smokeless Tobacco: Never Alcohol Use Standard Drinks/Week Comments Not Currently 0 (1 standard drink = 0.6 oz pur e alcohol) [facility] Utilities Answer Date Recorded In the past 12 months has [employer], gas, oil, or water [employer] threatened to shut off services in your [...] place to sleep or slept in a usp (including now)? No 01/23/2023 Housing Stability Vital Sign Answer Alexander e Recorded In the last 12 months, was t here a time when you were not able to pay the mortgage or rent on time? No 03/25/2024 In the past 12 months, how m any times have you moved where you were living? 0 03/25/2024 At any time in the past 12 [facility], were you homeless or living in a usp (including now)? No 03/25/2024 IPV Inpatient Questions [...] 9:00 AM EDT Office [place] [address] Nighat López MD [facility] [place] [address] 05/28/2024 8:00 AM EDT Office Visit Hematology/Oncology at [address] [phone] Rodriguez Fowler MD [facility] [place] [address] Sherry Cedillo APRN [address] [place] [address] DR HEMATOLOGY AND ONCOLOGY [place], [place] [id number] 05/28/2024 8:30 AM EDT Infusion Hematology Oncology at [address] [phone] 05/28/2024 9:30 AM EDT Clinical Support Hematology/Oncology at [address] [phone] [facility] DR HEMATOLOGY [place] [address] documented as of this encounter Visit Diagnoses Not on filedocumented in this encounter Care Teams Men'S Designer Relationship Specialty Start Date End Date Olga Hoffman APRN [address] [place] [address] PCP - General Family Medicine 10/30/22 documented as of this encounter
--- OUTSIDE RECORDS SUMMARY | 2024-05-21 01:07 | XMS_ITS | Encounter Summary ---
[place] [address] Care Team Providers Care Commercial Sales Director Name Role Phone Olga Hoffman APRN Primary Care Provider [phone] [phone] Encounter Details Date Type Department Care Team (Latest Contact Info) Description 05/05/2024 8:00 AM EDT Office Visit [place] [address] Shahida Zamudio CORE LAYING [place] [address] Vitamin D deficiency; Essential hypertension; 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 Social History Tobacco Use Types Packs/Day Years Used Date Smoking Tobacco: Never Smokeless Tobacco: Never Alcohol Use Standard Drinks/Week Comments Not Currently 0 (1 standard drink = 0.6 oz pur e alcohol) [facility] Utilities Answer Date Recorded In the past 12 months has [employer], gas, oil, or water [employer] threatened to shut off services in your [...] place to sleep or slept in a detention (including now)? No 01/23/2023 Housing Stability Vital Sign Answer Alexander e Recorded In the last 12 months, was t here a time when you were not able to pay the mortgage or rent on time? No 03/25/2024 In the past 12 months, how m any times have you moved where you were living? 0 03/25/2024 At any time in the past 12 m [place], were you homeless or living in a detention (including now)? No 03/25/2024 DH IPV Inpatient Questions Answer Date Recorded Does [...] on file documented as of this encounter Last Filed Vital Signs Vital Sign Reading Time Taken Comments Blood Pressure 138/83 05/05/2024 7:46 AM EDT Pulse 81 05/05/2024 7:46 AM EDT Temperature - - Respiratory Rate - - Oxygen Saturation - - Inhaled Oxygen Concentration - - Weight 120.2 kg (265 lb) 05/05/2024 7:46 AM EDT Height 188 cm (6' 2) 05/05/2024 7:46 AM EDT Body Mass Index 34.02 05/05/2024 7:46 AM EDT documented in this encounter Progress Notes * Shahida Zamudio, CORE LAYING MACHINE OPERATOR - 05/05/2024 8:00 AM EDT [facility] 05/05/2024 PRIMARY CARE PROVIDER: Olga Hoffman APRN FIREWORKS INSPECTOR: Dr. 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 He was last seen by Dr. Maxwell in December for 2022 and presents today for routine follow up. Charles notes original diagnosis of membranous nephropathy dating back many years ago in [place]. He presented with edema that was progressive and lasted several months. He notes his weight at the time was up over 400lbs. In follow up with his PCP urine was notable for proteinuria and he was advised to report to the local hospital. By his recollection he was only treated with RAAS inhibition and recalls kidney injury severe enough to consider dialysis though he never required treatment. He spontaneously remitted with recurrence in 2006 and renal biopsy in 2007 consistent with membranous nephropathy. Results are available under pathology report. Denies treatment for membranous with immunosuppressive or steroids in the past. Treated medically with RAAS inhibition and diuretics for edema. Interval History Recently diagnosed with duodenal cancer. Underwent Whipple with Dr. Hernandez in February. His course was complicated by a postoperative infection requiring drain placement. He has been going to IR for drain check every two weeks. Meeting with Oncology this week to initiate chemo if infection resolved. Currently reports symptoms are well controlled. Notes some anxiety surrounding new cancer diagnosisbut feels he is managing well. Denies SOB, edema, N/V, chest pain, or hematuria. Reports intermittent diarrhea since Whipple but denies melena or hematochezia. Notes ongoing foamy urine which has been his baseline for many years. BP mildly elevated with systolic readings 140/80-90s. Notes prior intolerance to RAAS inhibition and SGLT-2 inhibition due to hypotension PAST MEDICAL HISTORY: (Unchanged from previous visit except where noted.) Past Medical History: Diagnosis Date CKD (chronic kidney disease) stage 3, GFR 30-59 ml/min 01/31/2011 Obesity 01/31/2011 PAST SURGICAL HISTORY: (Unchanged from previous visit except where noted.) Past Surgical History: Procedure Laterality Date CT GUIDED DRAIN PANCREATIC/PERIPANCREATIC 03/25/2024 CT Guided Drain Pancreatic/Peripancreatic Joe Quintero, [facility] RAD CT SCAN IR BIOPSY LIVER PERCUTANEOUS - NON-FOCAL PARENCHYMA 01/07/2023 IR Biopsy Liver Percutaneous 01/07/2023 Juan Wright MD [facility] INTERVENTIONL RAD IR DRAIN CHECK/CHANGE/REMOVE 04/08/2024 IR Drain Check/Change/Remove 04/08/2024 Juan Wright MD [facility] INTERVENTIONL RAD IR DRAIN CHECK/CHANGE/REMOVE 04/21/2024 IR Drain Check/Change/Remove 04/21/2024 Silvio Wheeler MD [facility] INTERVENTIONL RAD IR DRAIN CHECK/CHANGE/REMOVE 05/05/2024 IR Drain Check/Change/Remove 05/05/2024 Gary Comer MD [facility] INTERVENTIONL RAD IR MEDIPORT PLACEMENT 04/26/2024 IR Mediport Placement 04/26/2024 Latonia Oscar PA [facility] INTERVENTIONL RAD PRO PART REMV PANC, PROX+REMV DUOD+ANAST N/A 03/01/2024 @WHIPPLE PROCEDURE (WRVU 52.84) performed by Rudi Hernandez MD at [facility] MAIN OR PRO TRANSFER SKIN PEDICLE FLAP N/A 03/01/2024 TRANSFER, INTERMEDIATE, ANY PEDICLE FLAP, ANY LOCATION (WRVU 4.77) performed by Rudi Hernandez MD at [facility] MAIN OR MEDICATIONS: Current Outpatient Medications Medication Sig Dispense Refill ezyrte-ulhyuiky-kweeepw (Zenpep) 40,000-126,000- 168,[address] capsule Take 3 capsules by mouth 3times daily. Take three capsules with meals and 1 capsule with snacks 400 capsule 3 insulin glargine-yfgn (Semglee) 100 unit/mL Solution Inject 10 Units subcutaneously daily. (Patienttaking differently: Inject 16 Units subcutaneously daily.) 10 mL 0 acetaminophen (Tylenol) 325 mg tablet Take 2 tablets by mouth every 8 hours as needed for Pain. 30 tablet 1 ondansetron ODT (Zofran-ODT) 4 mg disintegrating tablet Take 1 tablet by mouth every 8 hours as needed for Nausea. 9 tablet 0 omeprazole (PriLOSEC) [address] capsule Take 1 capsule by mouth daily. 90 capsule 1 potassium chloride ER (Klor-Con, K-Tab) 10 mEq ER tablet Take 1 tablet by mouth 2 times daily. 30 tablet 0 Insulin [employer], Disposable, (BD Ultra-Fine Micro Pen Needle) 32 gauge x 1/4 Needle 1 each by [facility]Non-Drug; Combo Route) route 2 times daily. 300 each 3 montelukast (Singulair) 10 mg tablet Take 10 mg by mouth daily. magnesium oxide (Mag-Ox) 400 mg (241.3 mg magnesium) Tablet Take 1 tablet by mouth nightly. amLODIPine (Norvasc) 10 mg tablet Take 1 tablet by mouth daily. naltrexone (Depade) 50 mg tablet Take 50 mg by mouth daily. citalopram (CeleXA) 10 mg tablet Take 10 mg by mouth daily. tadalafiL (CIALIS) 10 mg Tablet TAKE 1 TABLET BY MOUTH ONCE A DAY NEEDED. TAKE 1 HOUR PRIOR TO SEXUAL INTERCOURSE gabapentin (NEURONTIN) 600 mg Tablet Take 600 mg by mouth 3 times daily. furosemide (Lasix) 20 mg Tablet Take 1 tablet by mouth 2 times daily. 180 tablet 3 No current facility-administered medications for this visit. ALLERGIES/ADVERSE REACTIONS: (Unchanged from previous visit except where noted.) Allergies Allergen Reactions Penicillins Rash Per pt, received penicillin as a child and experienced a rash, however tolerated amoxicillin since then. Pt unlikely to remain penicillin allergic at this time. REVIEW OF SYSTEMS: Ten systems reviewed and negative except as noted in the HPI and PMHx. PHYSICAL EXAMINATION: Vitals: 05/05/24 0746 BP: 138/83 Pulse: 81 Weight: 120.2 kg (265 lb) Height: 188 cm (6' 2) Body mass index is 34.02 kg/m??. General - Non toxic-appearing gentleman. Appears his stated age. Neatly and appropriately groomed. Pleasant and cooperative. Seated comfortably in a chair. HEENT - No icterus or conjunctival injection. Moist mucous membranes. No oropharyngeal lesions or exudates. Good dentition. Neck - Supple. No lymphadenopathy. Respiratory - Lungs are clear to auscultation bilaterally. Cardiovascular - S1 and S2 are present. Regular rate and rhythm. No murmurs, rubs, or gallops. Abdomen - Bowel sounds present. Soft, nontender. Drain in without evidence of drainage. Extremities - No edema. Musculoskeletal - No joint tenderness or swelling. Skin/Integument - No rashes, ecchymoses, or petechiae. Psychiatric - Appropriate mood and affect. Neurological - No focal deficits. LABORATORY STUDIES: Recent Results (from the past 170 hour(s)) Protein/Creatinine Ratio, urine Collection Time: 05/05/24 7:19 AM Result Value Ref Range Protein, Urine 25 (H) 0 - 12 mg/dL Creatinine, Urine 178 mg/dL Protein / Creatinine Ratio, Urine 0.1 ratio U Albumin/Cre Ratio Collection Time: 05/05/24 7:19 AM Result Value Ref Range Albumin, Urine 63.8 mg/L Creatinine, Urine 178 mg/dL Albumin / Creatinine Ratio, Urine 36 (H) 0 - 29 mcg/mg Cr PTH Collection Time: 05/05/24 7:19 AM Result Value Ref Range Parathyroid Hormone 50 15 - 65 pg/mL Phosphorus Collection Time: 05/05/24 7:19 AM Result Value Ref Range Phosphorus 3.0 2.5 - 4.5 mg/dL Vitamin D, 25-Hydroxy Collection Time: 05/05/24 7:19 AM Result Value Ref Range Vitamin D Total 25 OH 12 (L) 21 - 100 ng/ml Vitamin D Total 25 OH Interp Deficient Creatinine (mg/dL) Date Value 04/20/2024 0.82 04/08/2024 0.97 04/01/2024 0.70 (L) 03/31/2024 0.64 (L) 03/30/2024 0.59 (L) 03/29/2024 0.54 (L) 03/28/2024 0.55 (L) 03/28/2024 0.56 (L) 03/27/2024 0.65 (L) 03/27/2024 0.70 (L) 03/27/2024 0.71 (L) 03/26/2024 0.66 (L) 03/26/2024 0.69 (L) 03/26/2024 0.70 (L) 03/26/2024 0.71 (L) 03/25/2024 0.73 (L) 03/25/2024 0.78 (L) 03/25/2024 0.62 (L) 03/24/2024 0.79 (L) 03/08/2024 0.57 (L) 03/07/2024 0.67 (L) ASSESSMENT AND PLAN: 48 y.o. male with membranous nephropathy, in remission, who presents for routine follow up. 1) Membranous Nephropathy- Remains quiescent. Proteinuria remains at baseline with minimal albuminuria likely attributable to known DM. Intolerant of RAAS inhibition/SGLT-2. Creatinine stable. I suspect values noted in March reflect hydration in the perioperative setting and most recent labs values are most consistent with out of hospital creatinine levels. 2) HTN - Blood pressure mildly elevated. Would prefer to defer medication changes for now in anticipation of upcoming treatment changes. 3) Anemia - Mild anemia noted. Tsat at goal, ferritin low. Will monitor for now given ongoing intraabdominal infection and contraindication to IV iron. 4) Bone and mineral - PTH normal. Calcium normal. 81-VW-Tsklzev D deficient. Plan for 12 week course of ergocalciferol. 5) Acid-base - No metabolic acidosis noted. 6) Electrolytes - Potassium WNL. Sodium WNL. 7) Obesity/Dietary - Encouraged low-salt diet. 8) Health maintenance - Will discuss utility of statin therapy with CKD as a cardiovascular risk equivalent. 9) Transplant/access referral - Not indicated. 10) Return to clinic - Will return in 3 months for follow-up. Will contact me if he has any questions or concerns in the interim. Fifty minutes of this visit were spent in reviewing records, counseling patient on disease process and treatment options as outlined in my assessment and plan, and coordinating care. Shahida Zamudio, MSN, TEST ENGINEERING INTERN-C [facility] [place]rology [place] [address] documented in this encounter Plan of Treatment Upcoming Encounters Date Type Department Care Team (Late st Contact Info) Description 05/21/2024 9:00 AM EDT Office [place] [address] Nighat López MD [facility] [place] [address] 05/28/2024 8:00 AM EDT Office Visit Hematology/Oncology at [address] [phone] Rodriguez Fowler MD [facility] [place] [address] Sherry Cedillo APRN [address] [place] [address] DR HEMATOLOGY AND ONCOLOGY [place], [place] [id number] 05/28/2024 8:30 AM EDT Infusion Hematology Oncology at [address] [phone] 05/28/2024 9:30 AM EDT Clinical Support Hematology/Oncology at [address] [phone] [facility] [place] [address] documented as of this encounter Visit Diagnoses Diagnosis Vitamin D deficiency Unspecified vitamin D deficiency Essential hypertension Unspecified essential hypertension 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 documented in this encounter Care Teams Commercial Sales Director Relationship Specialty Start Date End Date Olga Hoffman APRN [address] [place] [address] PCP - General Family Medicine 10/30/22 documented as of this encounter
--- OUTSIDE RECORDS SUMMARY | 2024-05-21 01:07 | XMS_ITS | Encounter Summary ---
Author Organization [facility] [place] [address] Care Team Providers Care Tennis Centre Manager Name Role Phone Olga Hoffman APRN Primary Care Provider [phone] Reason for Visit * Reason Comments IV Access Port flush only-tx h eld * Treatment/Therapy Plan Authorization (Routine) - Authorized Specialty Diagnoses / Procedures Referred By Janak t Referred To Contact Diagnoses Duodenal adenocarcinoma Procedures TC PALONOSETRON HCL, 25MCG, INJECTION (ALOXI) TC OXALIPLATIN, 0.5MG, INJECTION (ELOXATIN) TC LEUCOVORIN CALCIUM, 50MG, INJECTION (WELLCOVORIN) TC FLOUROURACIL, 500MG Rodriguez Fowler MD [facility] [place] [address] Stj Hem Onc Infusion [address] [place] [id number] Referral ID Status Reason Start Date Expiration Date V isits Requested Visits Authorized [id number] Authorized 04/20/2024 04/20/2025 1 99 Encounter Details Date Type Department Care Team (Late st Contact Info) Description 05/07/2024 11:00 AM EDT Infusion Hematology Oncology at [address] [phone] Duodenal adenocarcinoma Social History Tobacco Use Types Packs/Day Years Used Date Smoking Tobacco: Never Smokeless Tobacco: Never Alcohol Use Standard Drinks/Week Comments Not Currently 0 (1 standard drink = 0.6 oz pur e alcohol) [facility] Utilities Answer Date Recorded In the past 12 months has th e electric, gas, oil, or water company [...] place to sleep or slept in a care home (including now)? No 01/23/2023 Housing Stability [...] any time in the past 12 m [facility], were you homeless or living in a care home (including now)? No 03/25/2024 IPV Inpatient [...] as of this encounter Progress Notes * Cata Harris RN - 05/07/2024 11:00 AM EDT INFUSION THERAPY ADMINISTRATION NOTES DIAGNOSIS: 1. Duodenal adenocarcinoma REASON FOR VISIT: MEDIPORT FLUSH ONLY -tx start held d/t draining abscess IV ACCESS: Mediport GAUGE: 19G BLOOD RETURN: yes ANY S/S OF INFECTION/EXTRAVASATIONS: no signs of IV complications observed IV FLUSHED WITH: 20cc NS IV DISCONTINUED: yes ASSESSMENT: Patient tolerated treatment well. PLAN: Return to clinic per routine. documented in this encounter Plan of Treatment Upcoming Encounters Date Type Department Care Team (Late st Contact Info) Description 05/21/2024 9:00 AM EDT Office Visit [place] [address] Nighat López MD [facility] [place] [address] 05/28/2024 8:00 AM EDT Office Visit Hematology/Oncology at [address] [phone] Rodriguez Fowler MD [facility] [place] [address] Sherry Cedillo APRN [address] [place] [address] DR HEMATOLOGY [place] [address] 05/28/2024 8:30 AM EDT Infusion Hematology Oncology at [address] [phone] 05/28/2024 9:30 AM EDT Clinical Support Hematology/Oncology at [address] [phone] [facility] [place] [address] documented as of this encounter Visit Diagnoses Diagnosis Duodenal adenocarcinoma Malignant neoplasm of duodenum documented in this encounter Care Teams Tennis Centre Manager Relationship Specialty Start Date End Date Olga Hoffman APRN [address] [place] [address] PCP - General Family Medicine 10/30/22 documented as of this encounter
--- OUTSIDE RECORDS SUMMARY | 2024-05-21 01:07 | XMS_ITS | Encounter Summary ---
Author Organization [facility] [place] [address] Care Team Providers Care Pot Room Supervisor Name Role Phone Olga Hoffman APRN Primary Care Provider [phone] [phone] Encounter Details Date Type Department Care Team (Latest Contact Info) Description 05/07/2024 1:00 PM EDT Clinical Support Hematology/Oncolog y at [address] [phone] Leah Rose, RD [facility] DR [place] [address] Duodenal adenocarcinoma Social History Tobacco Use Types Packs/Day Years Used Date Smoking Tobacco: Never Smokeless Tobacco: Never Alcohol Use Standard Drinks/Week Comments Not Currently 0 (1 standard drink = 0.6 oz pur e alcohol) [facility] Utilities Answer Date Recorded In the past 12 months has [employer], gas, oil, or water [employer] threatened to shut off services in your [...] place to sleep or slept in a mcfp (including now)? No 01/23/2023 Housing Stability Vital Sign Answer Alexander e Recorded In the last 12 months, was t here a time when you were not able to pay the mortgage or rent on time? No 03/25/2024 In the past 12 months, how m any times have you moved where you were living? 0 03/25/2024 At any time in the past 12 m [place], were you homeless or living in a mcfp (including now)? No 03/25/2024 DH IPV Inpatient [...] as of this encounter Progress Notes * Leah Rose, RD - 05/07/2024 1:00 PM EDT Nutrition Note Spoke with Charles in clinic today. 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 Post-operative course was complicated by pancreatic leak and peripancreatic abscess for which she was admitted on 03/24. He has a drain in place and is on antibiotics with Levaquin and Flagyl. Patient has f/u with Dr. Hernandez next week on 05/12. He reports that his appetite has improved. He eats 3 meals/day plus snacks. No N/V or pain. BM's are brown, watery with small chunks. Patient is taking Zenpep 40: 3 per meal and 1 per snack. BG has been elevated and CGM shows all values 200-300 mg/dl. He is taking 16 units/day of Lantus, which is managed by his PCP. Endocrinology note on 04/01 recommends considering restarting Metformin XL 500 mg BID in addition to long- acting insulin. Patient mentions that he has a foot ulcer on right foot which is healing and now has stage I ulcer on left foot. He says he is getting new diabetic shoes soon. Wt Readings from Last 10 Encounters: 05/07/24 119.8 kg (264 lb 3.2 oz) 05/05/24 120.2 kg (265 lb) 04/21/24 119.3 kg (263 lb) 04/20/24 116.9 kg (257 lb 11.5 oz) 04/08/24 115.2 kg (254 lb) 04/08/24 115.5 kg (254 lb 11.2 oz) 03/30/24 119.7 kg (263 lb 14.3 oz) 03/25/24 116.1 kg (256 lb) 03/17/24 119.7 kg (263 lb 14.4 oz) 03/07/24 (!) 138.6 kg (305 lb 8.9 oz) BMI 33.9 Weight stable 04/21-05/07 Weight varied 254-265# 03/17-04/21 Question accuracy of weight on 03/07 as this is 42# higher than weight on 03/17 Diet: Usually eats 3 meals/day. Skipped breakfast yesterday because he wasn't feeling hungry for it. He or his partner cook fish eggs meal. Tonight will be chicken Rigel kerri. He had a hard time recalling what he ate yesterday. Dislikes: salads Preferred drinks: did not discuss today. Medications: 16 units Lantus/day, ZenPep 40 (3 per meal, 1 per snack), Tyelnol prn, Zofran-ODT prn,Omeprazole, Kcl, Mag-Ox, Amlodipine, Naltrexone, Citalopram, Tadalafil, Gabapentin, Lasix Social: Partner is RN at [employer]. Lives in [place], has 3 children. PMH: HTN, DM, depression, membranous glomerulopathy in remission, JOSE, CHAN Labs on 05/07: H/H 12.8/41.3, BUN/Creat 6/0.9, BG 258H, Alb 2.8, CMP otherwise unremarkable. Treatment: no adria-adjuvant treatment. Plan for Folfox with reduced dose Oxaliplatin. Unable to start treatment today while drain is in place and on antibiotics. Nutrition Problem: Altered GI function related to s/p Whipple procedure with bilroth II as evidenced by need for ZenPep 40: 3 per meal and 1 per snack. Recommendations: Continue to eat regular meals and snacks. Discussed goal of keeping weight stable during treatment.He really would like to eventually lose some weight. DM: Encouraged him to discuss endocrinology's recommendation to add Metformin extended release 500 mg BID. BG is consistently 200-300 mg/dl. He does have endocrinology appt at scheduled for 05/21. ZenPep 40: taking 3 per meal and 1 per snack. Spacing out appropriately. Discussed trying 4 per meal and 2 per snack if larger or higher in fat content as his BM's are loose though brown in color. Also discussed taking probiotic as he has been on antibiotics (does not like yogurt). Will f/u on 05/21 documented in this encounter Plan of Treatment Upcoming Encounters Date Type Department Care Team (Late st Contact Info) Description 05/21/2024 9:00 AM EDT Office [place] [phone] Nighat López MD [facility] [address] 05/28/2024 8:00 AM EDT Office Visit Hematology/Oncology at [address] [phone] Rodriguez Fowler MD [facility] [place] [address] Sherry Cedillo APRN [address] [place] [address] DR HEMATOLOGY AND ONCOLOGY [place], [place] [phone] 05/28/2024 8:30 AM EDT Infusion Hematology Oncology at [address] [phone] 05/28/2024 9:30 AM EDT Clinical Support Hematology/Oncology at [address] [phone] Laeh Rose, RD [facility] [place] [address] documented as of this encounter Visit Diagnoses Diagnosis Duodenal adenocarcinoma Malignant neoplasm of duodenum documented in this encounter Care Teams Pot Room Supervisor Relationship Specialty Start Date End Date Olga Hoffman APRN [address] [place] [address] PCP - General Family Medicine 10/30/22 documented as of this encounter
--- OUTSIDE RECORDS SUMMARY | 2024-05-21 01:07 | XMS_ITS | Encounter Summary ---
Author Organization [facility] [place] [address] Care Team Providers Care Public Health Engineer Name Role Phone Olga Hoffman APRN Primary Care Provider [phone] Reason for Referral * Diagnostic Test (Routine) - New Request Specialty Diagnoses / Procedures Referred By Contac t Referred To Contact Radiology Diagnoses Perihepatic abscess Procedures IR Drain Check/Change/Remove Gary Comer MD [facility] [address] [place] [address] [place] [address] Referral ID Status Reason Start Date Expiration Date Visits Requested Visits Authorized [id number] New Request Specialty Service Requested 05/05/2024 11/05/2025 1 1 * Diagnostic Test (Routine) - New Request Specialty Diagnoses / Procedures Referred By Contac t Referred To Contact Radiology Diagnoses Perihepatic abscess Procedures IR Drain Check/Change/Remove Silvio Wheeler MD [facility] [address] [place]ION[place] [address] [place] [address] Referral ID Status Reason Start Date Expiration Date Visits Requested Visits Authorized [id number] New Request Specialty Service Requested 04/21/2024 10/22/2025 1 1 Reason for Visit * Diagnostic Test (Routine) - New Request Specialty Diagnoses / Procedures Referred By Janak holland Referred To Contact Radiology Diagnoses Perihepatic abscess Procedures IR Drain Check/Change/Remove Silvio Wheeler MD [facility] [address] [place] [address] [facility] [place] [address] Referral ID Status Reason Start Date Expiration Date Visits Requested Visits Authorized [id number] New Request Specialty Service Requested 04/21/2024 10/22/2025 1 1 Encounter Details Date Type Department Care Team (Latest Contact Info) Description 05/05/2024 8:41 AM EDT - 05/05/2024 11:59 PM EDT Hospital En[place] [address] Silvio Wheeler MD [facility] [address] [place]ION[place] [address] Perihepatic abscess Discharge Disposition: Home Social History Tobacco Use Types Packs/Day Years Used Date Smoking Tobacco: Never Smokeless Tobacco: Never Alcohol Use Standard Drinks/Week Comments Not Currently 0 (1 standard drink = 0.6 oz pur e alcohol) [facility] Utilities Answer Date Recorded In the past 12 months has [employer] gas, oil, or water [employer] threatened to shut off services in your [...] any time in the past 12 m [facility], were you homeless or living in a care home (including now)? No 03/25/2024 DH IPV Inpatient [...] Sign Reading Time Taken Comments Blood Pressure 169/106 05/05/2024 11:41 AM EDT Pulse 80 05/05/2024 9:50 AM EDT Temperature 36.6 ??C (97.9 ??F) 05/05/2024 11:41 AM E DT Respiratory Rate 16 05/05/2024 9:50 AM EDT Oxygen Saturation 96% 05/05/2024 11:49 AM EDT Inhaled Oxygen Concentration - - Weight - - Height - - Body Mass Index - - documented in this encounter Discharge Instructions * Discharge Instructions* Jenelle Carcamo RN - 05/05/2024 11:08 AM EDT INTERVENTIONAL RADIOLOGY DRAIN CARE INSTRUCTIONS Drains help to keep fluid from collecting by removing the extra blood and fluid from under the skinor from an abscess within the body. A drain is temporary. It stays in place until the drainage has slowed down or stopped. Your Provider will decide when each drain should be removed. This is usuallyafter each drain has 30cc or less in 24 hours for 2-3 days in a row. You will then be scheduled for what is called a Sinogram to check and see if the fluid collection has gotten smaller. How do I care for the drains at home? Pin your drain/s to your clothing by using a safety pin through the plastic loop on the top of the bulb. If the drain is not attached to your clothing, it may pull out from under your skin. Also, a drain usually feels more comfortable when it???s attached. To care for the drain at home, you will have to empty the drain, ???strip?? the drain tubing, and change the dressing if applicable. * See the following information on instructions on how to do this. You will go home with a dressing over the insertion site. Usually, Visiting Nurses are set up to show you how to change the dressing and care for the drain. They may teach a family member if they arewilling. The dressing needs to only be change once a week provided there is no leakage around the tube. What problems may I have with my drain? The bulb is not compressed- The bulb may not be squeezed tightly enough, the plug may not be closedsecurely, or the tube has slipped out a bit and is leaking. Follow the instructions on how to emptythe drain. If the bulb remains expanded, then notify your doctor or nurse during business hours. No drainage or sudden decrease in amount of drainage- This may be due to a plug in the drain. Please notify your doctor or nurse during business hours. The tube accidentally falls out- If this happens, place a dry gauze dressing over the drain site and notify your doctor or nurse during business hours. Increased redness, swelling, or heat around the tube insertion site- This may be a sign of infection. Take your temperature: if it is higher than 101F or 38.8C, call your doctor or nurse immediately.Otherwise, notify your doctor or nurse during business hours and keep the dressing clean and dry. How to Empty Your Drain and flush drain Note: Wash your hands thoroughly before emptying your drain(s). Unpin the drain from your clothing. 1. Turn the white stopcock so it is not parallel (in line) with the tubing. 2. Unscrew the tubing with the bulb attached from stopcock. Make sure you keep everything clean. 3. Attach the syringe with sterile saline to the stopcock. 4. Inject saline per MD order, 3-5 cc's. Forward flush only, do not aspirate back. 5. Re-attach the tubing with the bulb to the stopcock. 6. Invert the bulb and pull open the plug. 7. Have the plastic measuring cup from the hospital ready to collect and measure the drainage. Please measure the output at the same time every 24 hours and record the amount. 8. Turn the drain upside down and squeeze the contents of the bulb into the measuring cup. Be sure to empty the bulb as completely as possible. Flush the contents in the toilet. 9. Use the drain output log chart to record the amount of drainage twice a day or any time the bulbis full. Record the total for 24 hours for each drain you have. 10. If you have more than one drain, remember to record the drainage from each drain separately. 11. To prevent infection, do not let the stopper or top of the bottle touch the measuring cup or any other surface. Use one hand to squeeze all of the air from the drain. With the drain still squeezed, use your other hand to replace the top. This creates the suction necessary to remove the fluids from your body. Pin the drain back on your clothing to avoid pulling it out accidently. Wash your hands again. Remember to wash your hands before and after the procedure to reduce the risk of infection. Flushing the Drain: Your doctor may want the drain to be flushed once or twice daily to keep the fluid from plugging the drain. Flush the drain with 3-5 cc daily with the syringes supplied to you. FORWARD FLUSH ONLY, DO NOT ASPIRATE BACK. When to call the Interventional Radiology Department: Please call with any questions or concerns. If it is during regular office hours, please call [phone]. If it is after regular office hours, or on weekends or holidays, please call [phone] and ask to speak to the Commercial Insurance Underwriter director of retail operations for Interventional Radiology. XX You have received medication during your procedure to help lessen anxiety and keep you comfortable. These medications affect judgement and reaction time. We recommend that you do not drive, operate equipment, sign any important documents, or smoke unattended for 24 hours following your procedure. Because of the sedation, be careful on stairs, as you may be unsteady on your feet. You may resume your regular diet as tolerated. IV site -- slight redness, or tenderness is normal, you can use a warm compress. If tenderness and redness increases or foul drainage occurs, please contact your M. Ilana Revised 07/01/19 Drainage Record NAME: Date of Surgery: Date: Time: If more than one drain, which one: Drainage Amount (per drain) Total Amount (per drain; in 24 hours) documented in this encounter Medications at Time of Discharge Medication Sig Dispensed Refills Start Date End Date ergocalciferoL, vitamin D2, (vitamin D2) 50,000 unit capsuleIndications:Vi tamin D deficiency Take 1 capsule by mouth once a week. 4 capsule 3 05/10/2024 nmrwxi-wxiizqek-iocds se (Zenpep) 40,000-126,000- 168,[address] capsule Take 3 capsules by mouth 3 times daily. Take three capsules with meals and 1 capsule with snacks 400 capsule 3 04/09/2024 insulin glargine-yfgn (Semglee) 100 unit/mL Solution Inject 10 Units subcutaneously daily. 10 mL 04/02/2024 acetaminophen (Tylenol) 325 mg tablet Take 2 tablets by mouth every 8 hours as needed for Pain. 30 tablet 1 04/01/2024 ondansetron ODT (Zofran-ODT) 4 mg disintegrating tabletIndications:Duo denal adenocarcinoma Take 1 tablet by mouth every 8 hours as needed for Nausea. 9 tablet 03/17/2024 omeprazole (PriLOSEC) [address] capsuleIndications:Du odenal cancer Take 1 capsule by mouth daily. 90 capsule 1 03/10/2024 03/10/2025 potassium chloride ER (Klor-Con, K-Tab) 10 mEq ER tablet Take 1 tablet by mouth 2 times daily. 30 tablet 03/08/2024 Insulin [place], Disposable, (BD Ultra-Fine Micro Pen Needle) 32 gauge x 1/4 Needle 1 each by [facility].(Non-Drug; Combo Route) route 2 times daily. 300 each 3 03/05/2024 montelukast (Singulair) 10 mg tablet Take 10 mg by mouth daily. magnesium oxide (Mag-Ox) 400 mg (241.3 mg magnesium) Tablet Take 1 tablet by mouth nightly. 09/19/2023 amLODIPine (Norvasc) 10 mg tablet Take 1 tablet by mouth daily. naltrexone (Depade) 50 mg tablet Take 50 mg by mouth daily. citalopram (CeleXA) 10 mg tablet Take 10 mg by mouth daily. tadalafiL (CIALIS) 10 mg Tablet TAKE 1 TABLET BY MOUTH ONCE A DAY NEEDED. TAKE 1 HOUR PRIOR TO SEXUAL INTERCOURSE 11/01/2021 gabapentin (NEURONTIN) 600 mg Tablet Take 600 mg by mouth 3 times daily. 08/30/2021 furosemide (Lasix) 20 mg TabletIndications:Pro teinuria, unspecified type,Obesity, unspecified classification, unspecified obesity type, unspecified whether serious comorbidity present,Hypertension secondary to other renal disorders Take 1 tablet by mouth 2 times daily. 180 tablet 3 02/15/2021 documented as of this encounter Progress Notes * Jenelle Carcamo RN - 05/05/2024 11:00 AM EDT ANGIO NURSING DATABASE Name: Charles Nick Date of : 1975 AGE: 48 y.o. Address: [facility] [address] [facility] [place] [address] (home) [phone] (work) Mobile: Telephone Information: Referring Provider: Silvio Wheeler REASON FOR VISIT: Order Questions Answers Where will study be performed? [facility] Radiology [120] To be scheduled Next available after expected date Reason for exam and clinical history: Drainage catheter in post Whipple leak, persistent on drain check 04/21/2024, converted from bulb to bag drainage, follow- up study in ~ 2 weeks with potential conversion to smaller pigtail catheter versus other approach. Is the patient on anticoagulant / antiplatelet therapy ? No Planned procedure: Mediport implant - single lumen Labs to be performed day of procedure: No labs Sedation: Moderate (Conscious sedation) Prophylactic antibiotic : None Contrast: No contrast Additional medications for procedure: Lidocaine Position: Supine Consent: Pending Medications to discontinue (and days held): None Case Urgency:: G2- Elective Outpatient intervention within 8-14 days Allergies Allergen Reactions Penicillins Rash Per pt, received penicillin as a child and experienced a rash, however tolerated amoxicillin since then. Pt unlikely to remain penicillin allergic at this time. 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 03/25/24 Peripancreatic drain IV Fentanyl 100mcg, IV Versed 1.5mg 04/08/24 IR Drain Check/Change/Remove - No Intervention Local 04/21/24 IR drain check with conversion to gravity bag Local only 04/26/24 Mediport placement Fentanyl 125 mcg IV, Versed 2.5 mg IV Tolerated well 05/05/24 Drain check exchange to 8.5Fr Neel Ramon Local 10:57 to procedure room 1 via stretcher. Onto table supine. All monitors, O2, safety strap in place. Meds per protocol. Laboratory Results: Lab Results Component Value Date INR 1.1 12/25/2022 Lab Results Component Value Date CREATININE 0.82 04/20/2024 CREATININE 0.97 04/08/2024 Lab Results Component Value Date K 4.1 04/20/2024 K 4.8 04/08/2024 Lab Results Component Value Date PLATELET 178 04/20/2024 PLATELET 248 04/08/2024 documented in this encounter H&P Notes * Latonia Oscar PA - 05/05/2024 10:46 AM EDT Images from the original note were not included. Interventional Radiology Focused Pre-procedure H&P: PCP: Olga Hoffman APRN Referring Provider: Silvio Wheeler Planned procedure: Abdominal drain check/exchange/removal Procedure indication: Duodenal carcinoma status post Whipple. Abscess in operative bed. Drain placed 03/25/2024. Routine drain check. IR workflow: Procedure request received through Interventional Radiology eDH order queue. Order Questions Answers Where will study be performed? [facility] Radiology [120] To be scheduled Next available after expected date Reason for exam and clinical history: Drainage catheter in post Whipple leak, persistent on drain check 04/21/2024, converted from bulb to bag drainage, follow- up study in ~ 2 weeks with potential conversion to smaller pigtail catheter versus other approach. Is the patient on anticoagulant / antiplatelet therapy ? No History of Present Illness: Per chart review, Charles Nick is a 48 y.o. 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 Patient was last seen in IR on 04/21 which demonstrated: 1. Persistent communication between drained space and bowel. 2. Drain left in place but converted to bag rather than bulb drainage. Remainder of patient's medical and surgical history, allergies, medications, and social/family history obtained below as previously outlined in patient's medical record. IR History: Date/Procedure Meds Given/Comments 01/07/23 Liver Bx Fentanyl 100 mcg IV, Versed 2 mg IV; tolerated procedure well. 03/25/24 Peripancreatic drain IV Fentanyl 100mcg, IV Versed 1.5mg 04/08/24 IR Drain Check/Change/Remove - No Intervention Local 04/21/24 IR drain check with conversion to gravity bag Local only 04/26/24 Mediport placement Fentanyl 125 mcg IV, Versed 2.5 mg IV Tolerated well Anticoagulation/Antiplatelet: None listed Labs: Lab Results Component Value Date HGB 12.6 (L) 04/20/2024 HGB 14.0 04/08/2024 HCT 40.5 04/20/2024 HCT 45.1 04/08/2024 WBC 7.18 04/20/2024 WBC 10.1 (H) 04/08/2024 PLATELET 178 04/20/2024 PLATELET 248 04/08/2024 INR 1.1 12/25/2022 BUN 5 (L) 04/20/2024 BUN 3 (L) 04/08/2024 CREATININE 0.82 04/20/2024 CREATININE 0.97 04/08/2024 ALBUMIN 3.5 04/20/2024 ALBUMIN 3.6 04/08/2024 BILIDIR 0.1 03/29/2024 BILITOT 0.3 04/20/2024 BILITOT 0.3 04/08/2024 AST 15 04/20/2024 AST 26 04/08/2024 ALT 14 04/20/2024 ALT 30 04/08/2024 ALKPHOS 71 04/20/2024 ALKPHOS 105 04/08/2024 Allergies: Penicillins Imagin04/21/24 Assessment: 48 y.o. male with indwelling abdominal drain presenting to Interventional Radiology forroutine drain check. Plan Planned procedure: Abdominal drain check/exchange/removal Labs to be performed day of procedure: No labs Sedation: No Sedation Prophylactic antibiotic : None Contrast: Omnipaque Additional medications for procedure: Lidocaine, Lido jelly Position: Supine Consent: Scanned Medications to discontinue (and days held): None Cytopathology presence needed: No Case Urgency:: G2- Elective Outpatient intervention within 8-14 days Medications: Current Outpatient Medications on File Prior to Encounter Medication Sig Dispense Refill metroNIDAZOLE (Flagyl) 500 mg tablet Take 1 tablet by mouth 2 times daily for 14 days. 28 tablet 0 levoFLOXacin (Levaquin) 750 mg tablet Take 1 tablet by mouth daily for 14 days. 14 tablet 0 jgxcwh-blfkcsmd-svhbnot (Zenpep) 40,000-126,000- 168,[address] capsule Take 3 capsules by mouth 3times daily. Take three capsules with meals and 1 capsule with snacks 400 capsule 3 insulin glargine-yfgn (Semglee) 100 unit/mL Solution Inject 10 Units subcutaneously daily. 10 mL 0 acetaminophen (Tylenol) 325 mg [...] 2 times daily. 30 tablet 0 Insulin [place], Disposable, (BD Ultra-Fine Micro Pen Needle) 32 gauge x 1/4 Needle [facility]Non-Drug; Combo Route) route 2 times daily. 300 [...] 180 tablet 3 No current facility-administered medications on file prior to encounter. 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 Perihepatic abscess K65.0 Severe protein-calorie malnutrition E43 Benign prostatic hyperplasia N40.0 Diabetes E11.9 Essential hypertension I10 Past Medical History: Diagnosis Date CKD (chronic kidney disease) stage 3, GFR 30-59 ml/min 01/31/2011 Obesity 01/31/2011 Past Surgical History: Procedure Laterality Date CT GUIDED DRAIN PANCREATIC/PERIPANCREATIC 03/25/2024 CT Guided Drain Pancreatic/Peripancreatic Joe Quintero DO [facility] RAD CT SCAN IR BIOPSY LIVER PERCUTANEOUS - NON-FOCAL PARENCHYMA 01/07/2023 IR Biopsy Liver Percutaneous 01/07/2023 Juan Wright MD [facility] INTERVENTIONL RAD IR DRAIN CHECK/CHANGE/REMOVE 04/08/2024 IR Drain Check/Change/Remove 04/08/2024 Juan Wright MD [facility] INTERVENTIONL RAD IR DRAIN CHECK/CHANGE/REMOVE 04/21/2024 IR Drain Check/Change/Remove 04/21/2024 Silvio Wheeler MD [facility] INTERVENTIONL RAD IR MEDIPORT PLACEMENT 04/26/2024 IR Mediport Placement 04/26/2024 Latonia Oscar PA [facility] INTERVENTIONL RAD PRO PART REMV PANC, PROX+REMV DUOD+ANAST N/A [facility].84[facility] performed by Rudi Hernandez MD at [facility] MAIN OR PRO TRANSFER SKIN PEDICLE FLAP N/A 03/01/2024 TRANSFER, INTERMEDIATE, ANY PEDICLE FLAP, ANY LOCATION (WRVU 4.77) performed by Rudi Hernandez MD at [facility] MAIN OR Social History and Habits: Social History Tobacco Use Smoking status: Never Smokeless tobacco: Never Vaping Use Vaping status: Never Used Substance Use Topics Alcohol use: Not Currently Drug use: Not Currently Significant Family History: No family history on file. Pertinent ROS: as per HPI Physical Exam: Pending (to be performed in IR the day of procedure) ASA: Pending (to be assessed in IR the day of procedure) Mallampati class: Pending (to be assessed in IR the day of procedure) 05/05/2024 Latonia Oscar PA-C documented in this encounter Plan of Treatment Upcoming Encounters Date Type Department Care Team (Late st Contact Info) Description 05/21/2024 9:00 AM EDT Office Visit [place] [address] Nighat López MD [facility] DR [place] [address] 05/28/2024 8:00 AM EDT Office Visit Hematology/Oncology at [address] [phone] Rodriguez Fowler MD [facility] [place] [address] Sherry Cedillo APRN [address] [place] [address] DR HEMATOLOGY AND ONCOLOGY [place], [place] [id number] 05/28/2024 8:30 AM EDT Infusion Hematology Oncology at [address] [phone] 05/28/2024 9:30 AM EDT Clinical Support Hematology/Oncology at [address] [phone] Leah Roes, ARASH [facility] DR HEMATOLOGY [place] [address] Scheduled Orders Name Type Priority Associated Diagnoses Orde r Schedule IR Drain Check/Change/Remove Imaging Routine Perihepatic abscess Expected: 05/19/2024, Expires: 07/05/2024 documented as of this encounter Procedures Procedure Name Priority Date/Time Associated Diagnosis Comments IR DRAIN CHECK/CHANGE/REMOVE Routine 05/05/2024 11:34 AM EDT Perihepatic abscess documented in this encounter Results * IR Drain Check/Change/Remove (05/05/2024 11:34 AM EDT) Anatomical Region Laterality Modality Head X-Ray Angiograph y Narrative 05/05/2024 11:52 AM EDT INTERVENTIONAL RADIOLOGY PROCEDURE NOTE Procedure: Abscessogram and drain exchange Indication for Procedure: Status post Whipple procedure with fluid collection and drain in place. 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 Plan for drain downsize. Informed Consent: After discussing risks (including infection, trauma / damage to surrounding structures, hemorrhage, non-success, amongst others), and benefits of the procedure, the patient consented to the procedure. Monitoring and Sedation Details: The IR nurse was present continuously monitoring ??pulse, pressure, and oxygen saturation. No systemic sedation was utilized. Procedure Events and Technique: A standard time-out was conducted just before the start of the procedure to verify all hogan aspects; including the correct patient and planned procedure, procedure location, informed consent, and all relevant critical information, all of which were correct. The patient was positioned supine on the procedure table. ??The drain and surrounding abdomen was cleaned and prepped in typical sterile fashion; maximal sterile barrier technique was used throughout. ?? Solutions Market Consultant fluoroscopic images were obtained. ??Contrast was injected through the catheter and repeat fluoroscopic images were obtained. ??The catheter was cut and an 0.035 Amplatz wire was advanced through the catheter. ??The catheter was removed over the wire and exchanged for a new 8.5-Fr Shaikh-Ramon drainage catheter, pigtail formed. Repeat contrast injection was performed and image obtained. ??The catheter was sutured in placed with 2-0 prolene. ??A sterile dressing was applied. ?? Medications: None Contrast: 10 cc Omnipaque 350, into cavity. Fluoroscopic Time: 1.8 minutes. Estimated Blood Loss: < 5 cc. Complications: ??No immediate. 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 No significant fluid collection. New drain in appropriate position. Impression: Successful drain exchange for new 8.5F Shaikh-Ramon type drainage catheter. Continue to gravity drainage. No daily flushing. Plan for 2 week drain check. Attending: Gary Comer MD I, Dr. Comer, was present throughout the procedure. Silvio Wheeler MD IMG IR ORDERABLES documented in this encounter Visit Diagnoses Diagnosis Perihepatic abscess Peritoneal abscess documented in this encounter Administered Medications Inactive Administered Medications - up to 3 most recent administrations Medication Order MAR Action Action Date Dose Rate Site iohexoL (Omnipaque) (350 mg/mL) solution 1-400 mL 1-400 mL, Other, ONCE, 1 dose, On Fri05/05/24 at 1100, For intra-procedural use by proceduralist., Angio/IR (Intra-Procedure), Routine Given 05/05/2024 11:00 AM EDT 10 mLs lidocaine (Glydo) 2 % gel 6 mL 6 mL, Topical (Top), EVERY 4 HOURS PRN, Starting on Fri05/05/24 at 1000, Until Fri05/05/24 at 1151, Pain, For use in Interventional Radiology (IR) only for procedure with direct provider supervision and verbal order., Angio/IR (Intra-Procedure), Routine Given 05/05/2024 10:08 AM EDT 6 mLs documented in this encounter Care Teams Public Health Engineer Relationship Specialty Start Date End Date Olga Hoffman, HYDRAULIC ROCKBREAKER OPERATOR [address] [place] [address] PCP - General Family Medicine 10/30/22 documented as of this encounter
--- OUTSIDE RECORDS SUMMARY | 2024-05-21 01:07 | XMS_ITS | Encounter Summary ---
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 No 01/23/2023 Housing Stability Vital [...] time in the past [address] [facility], were you homeless or living in a residential (including now)? No 03/25/2024 IPV Inpatient Questions [...] 9:00 AM EDT Office [place] [address] Nighat López MD [facility] [place] [address] 05/28/2024 8:00 AM EDT Office Visit Hematology/Oncology at [address] [phone] Rodriguez Fowler MD [facility] [address] Sherry Cedillo APRN [address] [address] DR HEMATOLOGY AND ONCOLOGY [place], [place] [id number] 05/28/2024 8:30 AM EDT Infusion Hematology Oncology at [address] [phone] 05/28/2024 9:30 AM EDT Clinical Support Hematology/Oncology at [address] [phone] [facility] DR HEMATOLOGY [place] [address] documented as of this encounter Procedures Procedure Name Priority Date/Time Associated Diagnosis Comments PTH Routine 05/05/2024 7:19 AM EDT 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 Obesity due to excess calories with serious comorbidity, unspecified classification PROTEIN/CREATININE RATIO, URINE Routine 05/05/2024 7:19 AM EDT 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 Obesity due to excess calories with serious comorbidity, unspecified classification U ALBUMIN/CRE RATIO Routine 05/05/2024 7 :19 AM EDT 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 Obesity due to excess calories with serious comorbidity, unspecified classification VITAMIN D, 25-HYDROXY Routine 05/05/2024 7:19 AM EDT 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 Obesity due to excess calories with serious comorbidity, unspecified classification PHOSPHORUS Routine 05/05/2024 7:19 AM EDT 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 Obesity due to excess calories with serious comorbidity, unspecified classification documented in this encounter Results * (ABNORMAL) Vitamin D, 25-Hydroxy (05/05/2024 7:19 AM EDT) Vitamin D Total 25 OH 12(L) 21 - 100 ng/ml 05/05/2024 10:36 AM EDT [facility] Vitamin D Total 25 OH Interp Deficient 05/05/2024 10:36 AM EDT [facility] Blood VENOUS BLOOD SPECIMEN / Unknown Venipuncture / Unknown 05/05/2024 7:19 AM EDT 05/05/2024 7:23 AM EDT Shahida Zamudio APRN CHEMISTRY ORDERABLES [facility] [place] [address] * Phosphorus (05/05/2024 7:19 AM EDT) Phosphorus 3.0 2.5 - 4.5 mg/dL 05/05/2024 7:56 AM EDT [facility] Blood VENOUS BLOOD SPECIMEN / Unknown Venipuncture / Unknown 05/05/2024 7:19 AM EDT 05/05/2024 7:23 AM EDT Shahida Zamudio APRN CHEMISTRY ORDERABLES [facility] [place] [address] * PTH (05/05/2024 7:19 AM EDT) Parathyroid Hormone 50 15 - 65 pg/mL 05/05/2024 8:56 AM EDT [facility] Blood VENOUS BLOOD SPECIMEN / Unknown Venipuncture / Unknown 05/05/2024 7:19 AM EDT 05/05/2024 7:23 AM EDT Shahida Zamudio APRN CHEMISTRY ORDERABLES [facility] [place] [address] * (ABNORMAL) U Albumin/Cre Ratio (05/05/2024 7:19 AM EDT) Albumin, Urine 63.8 mg/L 05/05/2024 11:45 AM EDT [facility] Creatinine, Urine 178 mg/dL 024 11:45 AM EDT [facility] Albumin / Creatinine Ratio, Urine 36(H) 0 - 29 mcg/mg Cr 05/05/2024 11:45 AM EDT [facility] Comment: Reference Ranges: ?? <30 mcg/mg: Normal ?? 30-300 mcg/mg: Moderately increased albuminuria.* ?? >300 mcg/mg: Severely increased albuminuria. ?? * ACEI or ARB recommended if diabetic; suggested if BP>130/80 without diabetes ?? ACEI or ARB strongly recommended if diabetic; recommended if BP>130/80 without diabetes ??Two of three specimens collected within a 3 to 6 month period should be abnormal before considering a patient to have albuminuria. Transient causes: exercise, fever, infection, CHF, marked hyperglycemia or hypertension. Persistent albuminuria indicates CKD and is an independent risk factor for ASCVD. ??ADA Standards of Medical Care in Diabetes-2016; KDIGO: Kidney International Supplements (2012) 2 ??[phone] Urine URINE SPECIMEN / Unknown Non Blood Collection / Unknown 05/05/2024 7:19 AM EDT 05/05/2024 7:23 AM EDT Shahida Zamudio APRN URINE ORDERABLES [facility] [place] [address] * (ABNORMAL) Protein/Creatinine Ratio, urine (05/05/2024 7:19 AM EDT) Protein, Urine 25(H) 0 - 12 mg/dL 05/05/2024 11:45 AM EDT [facility] Creatinine, Urine 178 mg/dL 05/05/2024 11:45 AM EDT [facility] Protein / Creatinine Ratio, Urine 0.1 ratio 05/05/2024 11:45 AM EDT [facility] Urine URINE SPECIMEN / Unknown Non Blood Collection / Unknown 05/05/2024 7:19 AM EDT 05/05/2024 7:23 AM EDT Shahida Aliyah Zamudio APRN URINE ORDERABLES [facility] [place] [address] documented in this encounter Visit Diagnoses Diagnosis 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
--- OUTSIDE RECORDS SUMMARY | 2024-05-21 01:07 | XMS_ITS | Encounter Summary ---
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 No 01/23/2023 Housing Stability Vital Sign Answer Alexander e Recorded In the last 12 months, was t here a time when you were not able to pay the mortgage or rent on time? No 03/25/2024 In the past 12 months, how m any times have you moved where you were living? 0 03/25/2024 At any time in the past 12 m [facility], were you homeless or living in a alf (including now)? No 03/25/2024 IPV Inpatient Questions [...] 9:00 AM EDT Office [place] [address] Nighat López MD [facility] [place] [address] 05/28/2024 8:00 AM EDT Office Visit Hematology/Oncology at [address] [phone] Rodriguez Fowler MD [facility] [place] [address] Sherry Cedillo APRN [address] [place] [address] DR [place] [address] 05/28/2024 8:30 AM EDT Infusion Hematology Oncology at [address] [phone] 05/28/2024 9:30 AM EDT Clinical Support Hematology/Oncology at [address] [phone] [facility] DR HEMATOLOGY [place] [address] documented as of this encounter Results * (ABNORMAL) Vitamin D, 25-Hydroxy (05/05/2024 7:19 AM EDT) [facility] Vitamin D Total 25 OH 12(L) 21 - 100 ng/ml 05/05/2024 10:[address] [facility] Vitamin D Total 25 OH Interp Deficient 05/05/2024 10:[address] [facility] Blood VENOUS BLOOD SPECIMEN / Unknown Venipuncture / Unknown 05/05/2024 7:19 AM EDT 05/05/2024 7:23 AM EDT Shahida Zamudio APRN CHEMISTRY ORDERABLES [facility] [place] [address] * Phosphorus (05/05/2024 7:19 AM EDT) [facility] Phosphorus 3.0 2.5 - 4.5 mg/dL 05/05/2024 7:[address] [facility] Blood VENOUS BLOOD SPECIMEN / Unknown Venipuncture / Unknown 05/05/2024 7:19 AM EDT 05/05/2024 7:23 AM EDT Shahida Zamudio APRN CHEMISTRY ORDERABLES Performing Organization Address [facility]/ZIP Co de Phone Number [facility] [place] [address] * PTH (05/05/2024 7:19 AM EDT) Parathyroid Hormone 50 15 - 65 pg/mL 05/05/2024 8:[address] [facility] Blood VENOUS BLOOD SPECIMEN / Unknown Venipuncture / Unknown 05/05/2024 7:19 AM EDT 05/05/2024 7:23 AM EDT Shahida Zamudio APRN CHEMISTRY ORDERABLES Performing Organization Address City/[facility]/ZIP Co de Phone Number [facility] [place] [address] * (ABNORMAL) U Albumin/Cre Ratio (05/05/2024 7:19 AM EDT) Albumin, Urine 63.8 mg/L 05/05/2024 11:[address] [facility] Creatinine, Urine 178 mg/dL 024 11:[address] [facility] Albumin / Creatinine Ratio, Urine 36(H) 0 - 29 mcg/mg Cr 05/05/2024 11:[address] [facility] Comment: Reference Ranges: ?? <30 [...] Diabetes-2016; KDIGO: Kidney International Supplements (2012) 2 ??[phone] Urine URINE SPECIMEN / Unknown Non Blood Collection / Unknown 05/05/2024 7:19 AM EDT 05/05/2024 7:23 AM EDT Shahida Zamudio APRN URINE ORDERABLES Performing Organization Address City/[facility]/ZIP Co de Phone Number [facility] [place] [address] * (ABNORMAL) Protein/Creatinine Ratio, urine (05/05/2024 7:19 AM EDT) Protein, Urine 25(H) 0 - 12 mg/dL 05/05/2024 11:[address] [facility] Creatinine, Urine 178 mg/dL 05/05/2024 11:[address] [facility] Protein / Creatinine Ratio, Urine 0.1 ratio 05/05/2024 11:[address] [facility] Urine URINE SPECIMEN / Unknown Non Blood Collection / Unknown 05/05/2024 7:19 AM EDT 05/05/2024 7:23 AM EDT Shahida Zamudio APRN URINE ORDERABLES Performing Organization Address City/[facility]/ZIP Co de Phone Number 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
--- OUTSIDE RECORDS SUMMARY | 2024-05-21 01:07 | XMS_ITS | Encounter Summary ---
Author Organization [facility] Address [facility] [place] [address] Care Team Providers Care International Banker Name Role Phone Olga Hoffman APRN Primary Care Provider [phone] Encounter Details Date Type Department Care Team (Latest Contact Info) Description 05/05/2024 Travel Social History Tobacco Use Types Packs/Day Years Used Date Smoking Tobacco: Never Smokeless Tobacco: Never Alcohol Use Standard Drinks/Week Comments Not Currently 0 (1 standard drink = 0.6 oz pur e alcohol) [facility] Utilities Answer Date Recorded In the past [...] any time in the past 12 m [facility], were you homeless or living in a [...] 9:00 AM EDT Office Visit [place] [address] Nighat López MD [facility] [place] [address] 05/28/2024 8:00 AM EDT Office Visit Hematology/Oncology at [address] [phone] Rodriguez Fowler MD [facility] [place] [address] Sherry Cedillo APRN [address] [place] [address] DR HEMATOLOGY [place] [address] 05/28/2024 8:30 AM EDT Infusion Hematology Oncology at [address] [phone] 05/28/2024 9:30 AM EDT Clinical Support Hematology/Oncology at [address] [phone] Leah Rose, RD [facility] DR [place] [address] documented as of this encounter Visit Diagnoses Not on filedocumented in this encounter Care Teams International Banker Relationship Specialty Start Date End Date Olga Hoffman APRN [address] [place] [address] PCP - General Family Medicine 10/30/22 documented as of this encounter
--- OUTSIDE RECORDS SUMMARY | 2024-05-21 01:07 | XMS_ITS | Encounter Summary ---
Author Organization [facility] Address [facility] [place] [address] Care Team Providers Care Bricklayer'S Assistant Name Role Phone Dalton Olgaevy Bell APRN Primary Care Provider [phone] Encounter Details Date Type Department Care Team (Late st Contact Info) Description 05/07/2024 10:30 AM EDT Office Visit Hematology/Oncology at [address] [phone] Rodriguez Fowler MD [facility] [place] [address] Sherry Cedillo INFORMATION ASSURANCE MANAGER [address] [place] [address] DR HEMATOLOGY AND ONCOLOGY [place], [place] [phone] Duodenal adenocarcinoma; H/O Whipple procedure Social History Tobacco Use Types Packs/Day Years Used Date Smoking Tobacco: Never Smokeless Tobacco: Never Alcohol Use Standard Drinks/Week Comments Not Currently 0 (1 standard drink = 0.6 oz pur e alcohol) [facility] Utilities Answer Date Recorded In the past [...] any time in the past [address] [facility], were you homeless or living in a [place] health care facility (including now)? No 03/25/2024 DH IPV Inpatient [...] Sign Reading Time Taken Comments Blood Pressure 142/92 05/07/2024 10:08 AM EDT Pulse 96 05/07/2024 10:08 AM EDT Temperature 36.4 ??C (97.6 ??F) 05/07/2024 1 0:08 AM EDT Respiratory Rate 18 05/07/2024 10:0 8 AM EDT Oxygen Saturation 98% 05/07/2024 10: 08 AM EDT Inhaled Oxygen Concentration - - Weight 119.8 kg (264 lb 3.2 oz) 024 10:08 AM EDT Height 188 cm (6' 2.02) 05/07/2024 10: 08 AM EDT Body Mass Index 33.91 05/07/2024 10:08 AM EDT documented in this encounter Progress Notes * Sherry Cedillo, INFORMATION ASSURANCE MANAGER - 05/07/2024 10:30 AM EDT Subjective Patient ID: Charles Nick is 48 y.o. Problem List: Duodenal adenocarcinoma; pT3, pN1; pMMR A. Presented with back pain which prompted a CT scan which was notable for some thickening by the duodenum. 12/01/22 - EGD showed a pedunculated polyp. Path - Small Intestine, Duodenal Polyp: - Tubulovillous adenoma, with at least high grade dysplasia, see note. Note: The adenoma shows villous structures with complex architecture, and focally atypical or disrupted small glands with luminal necrosis. Therefore, tubulovillous adenoma with at least high grade dysplasia is favored, and focally invasion can not be entirely excluded. B. He underwent a repeat EGD at 1 year for surveillance and was noted to have a sessile polyp in the location of his prior pedunculated polyp this was again biopsied and has returned as moderately differentiated adenocarcinoma with lymphovascular invasion. Path 01/02/24 - 1. Small Intestine, duodenal polyp: - Invasive moderately differentiated adenocarcinoma. - Lymphovascular invasion is present (supported with outside submitted ERG and CD31 immunostains). Immunostains for MLH1, MSH2, MSH6 and PMS2 reveal intact nuclear staining in tumor cells. C. 01/27/24 - PET scan - IMPRESSION 1. FDG-avid lesion in the proximal descending duodenum is compatible with duodenal adenocarcinoma. 2. Multiple FDG-avid lymph nodes in the left upper neck, unlikely to be related to duodenal lesion,probably inflammatory. Attention on follow-up. CEA - 1.4 on 02/03/24 CT a/p 02/26/24 - Impression: 1. The patient's known mass in the duodenum was not visualized on the current examination due to underdistention of the bowel at this region. The bowel is otherwise unremarkable 2. Enlarged 2.5 x 1.4 cm right inguinal lymph node 3. Findings suggestive of fatty infiltration of the liver D. 03/01/24 - Whipple procedure Path - SYNOPTIC Specimen Procedure: Pancreaticoduodenectomy (Whipple resection) Tumor Tumor Site: Duodenum Histologic Type: Adenocarcinoma (not otherwise characterized) Histologic Grade: G3, poorly differentiated Tumor Size: 2.3 Centimeters (cm) Tumor Extent: Invades through muscularis propria into subserosa, or extends into nonperitonealized perimuscular tissue (mesentery or retroperitoneum) without serosal penetration Macroscopic Tumor Perforation: Not identified Lymphovascular Invasion: Not identified Margins Margin Status for Invasive Carcinoma: All margins negative for invasive carcinoma Closest Margin(s) to Invasive Carcinoma: Posterior Distance from Invasive Carcinoma to Closest Margin: 3.5 cm Margin Status for Dysplasia: All margins negative for carcinoma in situ (high-grade dysplasia) / adenoma Regional Lymph Nodes Regional Lymph Node Status: Tumor present in regional lymph node(s) Number of Lymph Nodes with Tumor: 2 Number of Lymph Nodes Examined: 24 Pathologic Stage Classification (pTNM, AJCC 8th Edition) pT Category: pT3 pN Category: pN1 2. HTN 3. DM 4. 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 Underwent spontaneous remission without imunotherapy. Repeat biopsy in 2007 at [facility]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 6.Obstructive sleep apnea: Uses CPAP with improvement tin daytime alertness and mood 7.CHAN Liver biopsy 01/07/2023 Steatosis with steatohepatitis, stage 2/4 (sn). HPI Charles Nick is seen for evaluation and management of duodenal adenocarcinoma. The history is summarized above. The post-operative course has been complicated by a pancreatic leak and peripancreatic abscess for which she was admitted on 03/24. A drain was placed and he is on antibiotics with levaquin and flagyl. hCarles is here by himself today. He is doing ok, anxious. He is still on antibiotics. He tells me he's almost done with his antibiotics, maybe 1-2 more days. His drain was recently replaced with a pigtail drain, and he's still having a fair amount of drainage. He meets with Dr. Hernandez again next week. His appetite is improved and he's eating better. No nausea, vomiting, or pain. His stools have beenloose since the surgery, generally watery with small chunks. They are brown in color. His blood sugars have been elevated and he tells me he has one diabetic ulcer on each foot. His PCPis changing his diabetic meds. He has symptoms of neuropathy from below the knee to the feet in both LE. He has mild symptoms in his fingertips. 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 Mat GM had cancer, unsure of type Review of Systems Constitutional: Negative. HENT: Negative. Cardiovascular: Negative. Gastrointestinal: Positive for diarrhea. Negative for abdominal distention, abdominal pain, blood in stool, nausea and vomiting. Genitourinary: Negative. Musculoskeletal: Negative. Skin: Negative. Neurological: Negative. Psychiatric/Behavioral: Negative. Objective Physical Exam Vitals reviewed. Constitutional: General: He is not in acute distress. HENT: Head: Normocephalic and atraumatic. Nose: No congestion or rhinorrhea. Eyes: General: No scleral icterus. Cardiovascular: Rate and Rhythm: Normal rate. Pulmonary: Effort: Pulmonary effort is normal. No respiratory distress. Abdominal: General: Abdomen is flat. There is no distension. Palpations: Abdomen is soft. Skin: General: Skin is warm and dry. Coloration: Skin is not jaundiced. Comments: Abd drain, R of midline, draining translucent/pale yellow/ thin fluids. Neurological: General: No focal deficit present. Mental Status: He is alert and oriented to person, place, and time. Coordination: Coordination normal. Psychiatric: Mood and Affect: Mood normal. BP (!) 142/92 (Patient Position: Sitting) Pulse 96 Temp 36.4 ??C (97.6 ??F) (Temporal) Resp 18 Ht 188 cm (6' 2.02) Wt 119.8 kg (264 lb 3.2 oz) SpO2 98% BMI 33.91 kg/m?? Labs: WBC/ANC 7., H/H 12.8/41.3, plt 192,000, BUN/ Creat 6/0.9, glucose 258, albumin 2.8, remainder of CMP otherwise unremarkable. 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 From Dr. Hernandez's note Edu experienced back pain a year prior which prompted a CT scan which wasnotable for some thickening by the duodenum. The patient ultimately underwent an EGD and at that time was found to have a pedunculated polyp which was biopsied and was a tubular villous adenoma with no signs of malignancy. He underwent a repeat EGD at 1 year for surveillance and was noted to have asessile polyp in the location of his prior pedunculated polyp this was again biopsied and has returned as moderately differentiated adenocarcinoma with lymphovascular invasion. Staging evaluation showed no evidence of metastatic disease and the CEA was WNL. On 03/01/24 he underwent a Whipple procedure. The pathology showed poorly differentiated adenocarcinoma, pT3. 11/08 LN's were involved, pN1. The margins of resection were negative. The post-operative course has been complicated by a pancreatic leak and peripancreatic abscess for which he was admitted on 03/24. A drain was placed and he is on antibiotics with levaquin and flagyl.He tells me he is almost done with his antibiotics, and last week the drain was downgraded to a pigtail drain. It is still producing a fair amount of fluid. Adjuvant therapy was discussed. In general adjuvant therapy is recommended for all patients with LNpositive disease, in part extrapolating from the benefits of adjuvant therapy in patients with stage III colon cancer. Standard therapy would consist of 3-6 months of a flouropyrimidine and oxaliplatin containing regimen, ie Folfox or Capox. He has significant baseline neuropathy which is a concern. The plan we discussed is for Folfox withreduced dose oxaliplatin. We will plan to stop the oxaliplatin after cycle 6-8 to try to avoid retirement complications of neuropathy. Dr. Fowler also plans to reach out to Dr. Ayala to be sure he doesn't feel there is a role for radiation in the adjuvant setting. Potential side effects and schedule of therapy has been reviewed. PGX was drawn and is negative. A mediport has been placed. He's felling well today. His drain is still having a fair amount of output and he remains on antibiotics. Given this, we are going to push out the start of therapy for at least two more weeks. He hasan appointment with Dr. Hernandez next week where next steps on the abscess will be discussed. Tentatively, we will place him on the schedule for two weeks and hope to start him on therapy then if the abscess is improved. documented in this encounter Plan of Treatment Upcoming Encounters Date Type Department Care Team (Late st Contact Info) Description 05/21/2024 9:00 AM EDT Office [place] [phone] Nighat López MD [facility] [place] [address] 05/28/2024 8:00 AM EDT Office Visit Hematology/Oncology at [address] [phone] Rodriguez Fowler MD [facility] [place] [address] Sherry Cedillo APRN [address] [place] [address] DR HEMATOLOGY AND ONCOLOGY [place], [place] [phone] 05/28/2024 8:30 AM EDT Infusion Hematology Oncology at [address] [phone] 05/28/2024 9:30 AM EDT Clinical Support Hematology/Oncology at [address] [phone] [facility] DR HEMATOLOGY [place] [address] Scheduled Orders Name Type Priority Associated Diagnoses Orde r Schedule CBC (with Diff) Lab Routine Duodenal adenocarcinoma Every 2 Weeks for 12 Occurrences starting 05/06/2024 until 05/06/2025 documented as of this encounter Visit Diagnoses Diagnosis Duodenal adenocarcinoma Malignant neoplasm of duodenum H/O Whipple procedure documented in this encounter Care Teams Bricklayer'S Assistant Relationship Specialty Start Date End Date Olga Hoffman APRN [address] [place] [address] PCP - General Family Medicine 10/30/22 documented as of this encounter
--- OUTSIDE RECORDS SUMMARY | 2024-05-21 01:07 | XMS_ITS | Encounter Summary ---
Author Organization [facility] Address [facility] [place] [address] Care Team Providers Care Public Relations Sales Marketing Name Role Phone DaltonAbigailOlgaevy Bell APRN Primary Care Provider [phone] Reason for Visit * Reason Comments Follow-up Encounter Details Date Type Department Care Team (Late st Contact Info) Description 05/12/2024 3:30 PM EDT Office [place] [phone] Rudi Hernandez MD [facility] [place] [address] H/O Whipple procedure Social History Tobacco Use Types Packs/Day Years Used Date Smoking Tobacco: Never Smokeless Tobacco: Never Alcohol Use Standard Drinks/Week Comments Not Currently 0 (1 standard drink = 0.6 oz pur e alcohol) [facility] Utilities Answer Date Recorded In the past 12 months has [email or web address], gas, oil, or water [employer] threatened to shut off services in your [...] place to sleep or slept in a jail (including now)? No 01/23/2023 Housing Stability Vital [...] time in the past 12 m [facility], were you homeless or living in a jail (including now)? No 03/25/2024 DH IPV Inpatient [...] Sign Reading Time Taken Comments Blood Pressure 142/89 05/12/2024 3:32 PM EDT Pulse 90 05/12/2024 3:32 PM EDT Temperature 36.4 ??C (97.5 ??F) 05/12/2024 3:32 PM ED T Respiratory Rate 16 05/12/2024 3:32 PM EDT Oxygen Saturation 98% 05/12/2024 3:32 PM EDT Inhaled Oxygen Concentration - - Weight 124.5 kg (274 lb 6.4 oz) 05/12/2024 3:32 PM EDT Height 188 cm (6' 2.02) 05/12/2024 3:32 PM EDT Body Mass Index 35.22 05/12/2024 3:32 PM EDT documented in this encounter Progress Notes * Rudi Hernandez MD - 05/12/2024 3:30 PM EDT Department of General Surgery Surgical Oncology Follow-up CC: duodenal adenocarcinoma Presentation (Clinic visit 02/03/24): Charles Nick is a 48-year-old gentleman with a history of class II obesity, chronic kidney disease, diabetes, and fatty liver disease 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 Briefly, Edu experienced back pain a year prior which prompted a CT scanwhich was notable for some thickening by the duodenum. The patient ultimately underwent an EGD and at that time was found to have a pedunculated polyp which was biopsied and was a tubular villous adenoma with no signs of malignancy. He underwent a repeat EGD at 1 year for surveillance and was notedto have a sessile polyp in the location of his prior pedunculated polyp this was again biopsied andhas returned as moderately differentiated adenocarcinoma with lymphovascular invasion. OR 03/01/24- Whipple Findings: - no gross metastatic disease and notably large uncinate process - whipple performed with BII reconstruction - BASIA drain placed at HJ and PJ anastomosis Surgical Pathology DIAGNOSIS A - Common marina duct lymph node, excision: - Two lymph nodes negative for carcinoma. B - Head of pancreas, duodenum, bile duct and antrum, excision: - Adenocarcinoma of the duodenum, poorly differentiated. - Tumor stage summary:pT3 N1 (see synoptic report). C - Common hepatic artery lymph node, excision: - One lymph node, negative for malignancy D - Common hepatic artery lymph node #2, excision: - One lymph node, negative for malignancy SYNOPTIC Specimen Procedure: Pancreaticoduodenectomy (Whipple resection) Tumor [...] Edition) pT Category: pT3 pN Category: pN1 Clinic 03/20/24 : Charles Nick is now 2 weeks postop from [place]. He has been home for over a week. He presents with his partner who is a RN. Reports that he has some fatigue and low energy. That even taking a shower wipes him out. In terms of nutrition he does have intermittent nausea. Although he is able to maintain his nutrition and hydration. He reports eating potatoes, turnips, jeri, nondairy yogurt, and Powerade. He reports that he is consistently passing flatus although he does intermittently have stomach cramps, he is also having bowel movements. Clinic 04/08/24: Charles Nick was admitted with an abscess/pancreas leak on 03/24 and was taken arline IR drain placement. He was discharged on 04/01/24. He presents today for a drain study. He reports that he is eating better at home. His nausea is improved. He denies fevers/chills. He does have loose stools. I spoke to Dr. Neena Proctor and she recommended switching from Augmentin to Levaquin and Flagyl. I will send this prescription to his local pharmacy. We also discussed when and if we should transition to IV antibiotics. Given that Edu clinically is doing better than he was we willhold off on that transition at this point. A CT scan noted resolution of his collection and IR sinogram was performed and the drain was left in place. Clinic 05/12/24: Charles reports that overall he is doing very well. He has gone back to work and is working part-time. He is able to eat, he has resumed eating some traditional Belgian foods and has no abdominal pain with that. Is moving his bowels. His drain output is clear and per Edu and hispartner Claritza she still reports kind of 202 50-300 output daily. He has stopped his antibiotics does not have any fevers or chills. Physical Exam: Vital Signs Temp: 36.4 ??C (97.5 ??F) Heart Rate: 90 Resp: 16 BP: 142/89 SpO2: 98 % General: NAD, resting comfortably, pleasant, conversant HEENT: NCAT Pulm: non labored breathing Abd: soft, nontender, nondistended. Drain in place with clear output skin: warm, dry Ext: no cyanosis, cap refill <2sec Neuro: grossly intact, nonfocal Assessment and Plan: Charles Nick is a 48-year-old gentleman with a history of duodenal adenocarcinoma status post Whipple. His recovery has been complicated by an abscess/pancreatic leak. At this point it is clear that he has a pancreas leak as the drain output is completely clear. However he is back to work, tolerating a diet and moving his bowels. I discussed with him that my concern is with 200 to 300 cc of output that this drain will not close on its own. At this point we have tried putting it to gravity as well as putting a smaller pigtail in and moving it further away from the anastomosis. I think if this does not improve in the next week or so that he should come in to be admitted and we would do TPN, octreotide in an effort to get the drain output to decrease so that we could take it out. I do not want the drain to limit his ability to get adjuvant therapy. I have spoken with Dr. Fowler who feelsthat he would do adjuvant therapy up to 12 weeks or a little bit past that. Which essentially means1 month from now. I also discussed with Edu that another option would be to just remove the drain and see what happens. There is a situation there where he would then feel sick again require another intervention but potentially if there is a collection in place there then we may be able to access that endoscopically instead of percutaneously. I have spoken to Dr. Dubon about this possibility.I will plan on calling Edu in a few days to see how he is doing and to help come up with a plan. Addendum: I spoke to Edu on 05/16/2024 he reports that his drain output has decreased to about 50 cc a day. I will call him back on Friday. If his output is continuing to go down then we could potentially think about capping his drain to see if he would tolerate removal of the drain. If however Friday we are seeing increased output then I think it is time for him to come in for TPN. Please excuse any typographical and/or grammatical errors, dragon dictation was used to complete this note. Rudi Hernandez MD, MS Surgical Oncology 05/16/2024 12:23 PM documented in this encounter Plan of Treatment Upcoming Encounters Date Type Department Care Team (Late st Contact Info) Description 05/21/2024 9:00 AM EDT Office [place] [phone] Nighat López MD [facility] [place] [address] 05/28/2024 8:00 AM EDT Office Visit Hematology/Oncology at [address] [phone] Rodriguez Fowler MD [facility] [place] [address] Sherry Cedillo, [address] HEMATOLOGY AND ONCOLOGY [place], [place] [phone] 05/28/2024 8:30 AM EDT Infusion Hematology Oncology at [address] [phone] 05/28/2024 9:30 AM EDT Clinical Support Hematology/Oncology at [address] [phone] [facility] [place] [address] documented as of this encounter Visit Diagnoses Diagnosis H/O Whipple procedure documented in this encounter Care Teams Public Relations Sales Marketing Relationship Specialty Start Date End Date Olga Hoffman APRN [address] [place] [address] PCP - General Family Medicine 10/30/22 documented as of this encounter
--- OUTSIDE RECORDS SUMMARY | 2024-05-21 01:07 | XMS_ITS | Clinical Summary ---
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 Pt unlikely to remain penicillin allergic at this time. Medications Medication Sig Dispensed Refills Start Date End Date Status furosemide (Lasix) 20 mg TabletIndications:P roteinuria, unspecified type,Obesity, unspecified classification, unspecified obesity type, unspecified whether serious comorbidity present,Hypertensio n secondary to other renal disorders Take 1 tablet by mouth 2 times daily. 180 tablet 3 1 Active tadalafiL (CIALIS) 10 mg Tablet TAKE 1 TABLET BY MOUTH ONCE A DAY NEEDED. TAKE 1 HOUR PRIOR TO SEXUAL INTERCOURSE 2 Active gabapentin (NEURONTIN) 600 mg Tablet Take 600 mg by mouth 3 times daily. 1 Active citalopram (CeleXA) 10 mg tablet Take 10 mg by mouth daily. Active montelukast (Singulair) 10 mg tablet Take 10 mg by mouth daily. Active magnesium oxide (Mag-Ox) 400 mg (241.3 mg magnesium) Tablet Take 1 tablet by mouth nightly. 4 Active amLODIPine (Norvasc) 10 mg tablet Take 1 tablet by mouth daily. Active naltrexone (Depade) 50 mg tablet Take 50 mg by mouth daily. Active Insulin Stafford, Disposable, (BD Ultra-Fine Micro Pen Needle) 32 gauge x 1/4 Needle 1 each [place] [facility] [place]Non[place]Drug; Combo Route) route 2 times daily. 300 each 3 4 Active potassium chloride ER (Klor-Con, K-Tab) 10 mEq ER tablet Take 1 tablet by mouth 2 times daily. 30 tablet 4 Active omeprazole (PriLOSEC) [address] capsuleIndications: Duodenal cancer Take 1 capsule by mouth daily. 90 capsule 1 4 03/10/20 25 Active ondansetron ODT (Zofran-ODT) 4 mg disintegrating tabletIndications:D uodenal adenocarcinoma Take 1 tablet by mouth every 8 hours as needed for Nausea. 9 tablet 4 Active insulin glargine-yfgn (Semglee) 100 unit/mL Solution Inject 10 Units subcutaneously daily. 10 mL 4 Active Additional Information Patient taking differently: 16 UnitsSubcutaneous DAILY, Reported on 05/07/2024 acetaminophen (Tylenol) 325 mg tablet Take 2 tablets by mouth every 8 hours as needed for Pain. 30 tablet 1 4 Active bzgdhi-uqfgqwss-nus lase (Zenpep) 40,000-126,000- 168,[address] capsule Take 3 capsules by mouth 3 times daily. Take three capsules with meals and 1 capsule with snacks 400 capsule 3 4 Active ergocalciferoL, vitamin D2, (vitamin D2) 50,000 unit capsuleIndications: Vitamin D deficiency Take 1 capsule by mouth once a week. 4 capsule 3 4 Active Active Problems Problem Noted Date Diagnosed [...] the setting of acute illness or injury (Arnold, JPEN J Parenteral Enteral Nutr. 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 Discussed increase in lasix versus monitoring and working on lifestyle. Work on diet, weight loss and improving bowels. If at next visit, not improving, will adjust meds. 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 Encounters Date Type Department Care Team Description 05/20/2024 9:00 AM EDT Office [place] [address] Rudi Hernandez MD H/O Whipple procedure 05/20/2024 Travel 05/12/2024 3:30 PM EDT Office [place] [address] Rudi Hernandez MD H/O Whipple procedure 05/12/2024 Travel 05/07/2024 1:00 PM EDT Clinical Support Hematology/Oncolog y at [address] [address] Leah Rose, ARASH 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 11:00 AM EDT Infusion Hematology Oncology at [address] [address] 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 10:30 AM EDT Office Visit Hematology/Oncolog y at [address] [address] Rodriguez Fowler MD LaRoza, Stephanie A, APRN Duodenal adenocarcinoma; H/O Whipple procedure 05/07/2024 Travel 05/06/2024 Orders Only Hematology [place] [address] Rodriguez Fowler MD 05/06/2024 Orders Only Hematology and Oncology at [place] [phone] Rodriguez Fowler MD 05/05/2024 8:41 AM EDT - 05/05/2024 11:59 PM EDT Hospital Encounter Radiology at [place] [phone] Silvio Wheeler MD Perihepatic abscess Discharge Disposition: Home 05/05/2024 8:00 AM EDT Office Visit Nephrology Hypertension at [place] [phone] Shahida Zamudio APRN Vitamin D deficiency; Essential hypertension; 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 05/05/2024 7:00 AM EDT Laboratory Appointment Lab [address] [place], [place] [phone] 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; Obesity due to excess calories with serious comorbidity, unspecified classification 05/05/2024 Travel 05/04/2024 Orders Only Nephrology Hypertension at [place] [phone] Shahida Zamudio APRN 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; Obesity due to excess calories with serious comorbidity, unspecified classification 04/28/2024 Orders Only Radiology at [place] [phone] Silvio Wheeler MD 04/28/2024 Notes Only Hematology [place] [address] Alo Calhoun, [facility] 04/27/2024 Orders Only General Surgery at [place] [phone] Rudi Hernandez MD 04/26/2024 9:17 AM EDT - 04/26/2024 11:59 PM EDT Hospital Encounter Radiology at [place] [phone] Rodriguez Fowler MD Duodenal adenocarcinoma Discharge Disposition: Home 04/26/2024 Travel 04/21/2024 10:13 AM EDT - 04/21/2024 11:59 PM EDT Hospital Encounter Radiology at [place] [phone] Juan Wright MD Perihepatic abscess; Duodenal adenocarcinoma Discharge Disposition: Home 04/21/2024 9:00 AM EDT Office Visit General Surgery at [place] [phone] Rudi Hernandez MD H/O Whipple procedure 04/20/2024 12:29 PM EDT - 04/20/2024 11:59 PM EDT Hospital Encounter Hematology and Oncology at [place] [phone] Duodenal adenocarcinoma; H/O Whipple procedure Discharge Disposition: Home 04/20/2024 11:00 AM EDT Office Visit Hematology and Oncology at [place] [phone] Rodriguez Fowler MD Duodenal adenocarcinoma 04/20/2024 [place] [address] Latonia Oscar, PA 04/20/2024 Travel 04/15/2024 9:00 AM EDT Telephone Hematology and Oncology at [place] [phone] Donna Dewey, RD 04/14/2024 Telephone Nephrology Hypertension at [place] [phone] Shahida Joshi 04/09/2024 Orders Only General Surgery at [place] [phone] Rudi Hernandez MD 04/08/2024 11:06 AM EDT - 04/08/2024 11:59 PM EDT Hospital Encounter CT Scan at [place] [phone] Rudi Hernandez MD H/O Whipple procedure Discharge Disposition: Home 04/08/2024 10:50 AM EDT - 04/08/2024 11:05 AM EDT Hospital [place] [address] Perihepatic abscess; Duodenal adenocarcinoma; Obesity due to excess calories with serious comorbidity, unspecified classification Discharge Disposition: Home 04/08/2024 10:00 AM EDT Clinical Support [place] [address] H/O Whipple procedure 04/08/2024 9:30 AM EDT Office [place] [address] Rudi Hernandez MD H/O Whipple procedure 04/08/2024 8:45 AM EDT Laboratory Appointment Lab [address] [place] [address] Duodenal adenocarcinoma 04/07/2024 Travel 04/01/2024 Travel 03/26/2024 Telephone [place] [address] Gina Marie RN 03/24/2024 9:11 PM EDT - 04/01/2024 3:24 PM EDT Hospital Encounter Surgical Unit Level 4 [place] [address] Rudi Hernandez MD Perihepatic abscess; Duodenal adenocarcinoma; Obesity due to excess calories with serious comorbidity, unspecified classification; Severe protein-calorie malnutrition Discharge Disposition: Home with [facility] 03/24/2024 7:50 PM EDT Ancillary Procedure [place] [address] Rudi Hernandez MD 03/24/2024 5:30 PM EDT Ancillary Procedure [place] [address] Rudi Hernandez MD 03/24/2024 10:30 AM EDT Telephone Hematology [place] [address] 03/24/2024 [place] [address] Tylor Don DO 03/24/2024 Telephone [place] [address] Gina Marie, RN 03/22/2024 Orders [place] [address] Rudi Hernandez MD Duodenal adenocarcinoma; H/O Whipple procedure 03/20/2024 Multidisciplinary Ca re Committee [place] [address] Rudi Hernandez MD 03/19/2024 Telephone [place] [address] Jaki Pantoja, GRETCHEN 03/17/2024 10:30 AM EDT Clinical Support [place] [address] Donna Dewey, ARASH Duodenal cancer 03/17/2024 10:00 AM EDT Office [place] [address] Rudi Hernandez MD Duodenal adenocarcinoma 03/17/2024 Travel 03/16/2024 Multidisciplinary Ca re Committee [place] [address] Rudi Hernandez MD 03/10/2024 Telephone [place] [address] Rudi Hernandez MD 03/10/2024 Orders [place] [address] Rudi Hernandez MD Duodenal cancer 03/05/2024 Telephone [place] [address] Gary Mtz PA 03/05/2024 Telephone Nephrology Hypertension at [place] [phone] Deena Wells 03/05/2024 Transcribe Orders eDH Incoming Referrals [phone] Olga Hoffman APRN Other specified diabetes mellitus with other specified complication, unspecified whether skilled nursing insulin use 03/02/2024 11:59 PM EDT Anesthesia Event PACU at [place] [phone] Rafi Pena RN 03/01/2024 7:43 AM EDT Anesthesia Event Main Operating Room [place] [phone] Gary Scott MD Treide, Alexander P, CRNA 03/01/2024 7:30 AM EDT - 03/01/2024 4:58 PM EDT Surgery Main Operating Room [place] [phone] Rudi Hernandez MD @[place] PROCEDURE (WRVU 52.84) 03/01/2024 6:11 AM EDT - 03/08/2024 3:01 PM EDT Hospital Encounter Surgical Unit Level 4 [place] [address] Rudi Hernandez MD Duodenal cancer; Duodenal adenocarcinoma Discharge Disposition: Home 02/26/2024 2:35 PM EDT Ancillary Procedure [place] [address] Rudi Hernandez MD 02/26/2024 Orders [place] [address] June Delacruz Duodenal cancer (Primary Dx) 02/24/2024 Transcribe Orders eDH Incoming Referrals [phone] Olga Hoffman APRN Cramp and spasm 02/20/2024 Orders [place] [address] Mira Solomon RN from Last 3 Months Social History Tobacco Use Types Packs/Day Years Used Date Smoking Tobacco: Never Smokeless Tobacco: Never Tobacco Cessation:Counseling Given: Not Answered Alcohol Use Standard Drinks/Week Comments Not Currently 0 (1 standard drink = 0.6 oz pur e alcohol) [facility] Utilities Answer Date Recorded In [...] any time in the past 12 [facility], were you homeless or living in [...] on file Sexual Orientation Not on file Last Filed Vital Signs Vital Sign Reading Time Taken Comments Blood Pressure 140/98 05/20/2024 8:53 AM EDT notified Pulse 87 05/20/2024 8:53 AM EDT Temperature 36.6 ??C (97.9 ??F) 05/20/2024 8 :53 AM EDT Respiratory Rate 16 05/12/2024 3:32 PM EDT Oxygen Saturation 98% 05/20/2024 8:5 3 AM EDT Inhaled Oxygen Concentration - - Weight 120.2 kg (264 lb 14. 4 oz) 05/20/2024 8:53 AM EDT Height 188 cm (6' 2.02) 05/20/2024 8:5 3 AM EDT Body Mass Index 34 05/20/2024 8:53 AM EDT Plan of Treatment Upcoming Encounters Date Type Department Care Team (Late st Contact Info) Description 05/21/2024 9:00 AM EDT Office [place] [address] Nighat López MD [facility] [place] [address] 05/28/2024 8:00 AM EDT Office Visit Hematology/Oncology at [address] [phone] Rodriguez Fowler MD [facility] [place] [address] Sherry Cedillo APRN [address] [place] [address] DR HEMATOLOGY [place] [address] 05/28/2024 8:30 AM EDT Infusion Hematology Oncology at [address] [phone] 05/28/2024 9:30 AM EDT Clinical Support Hematology/Oncology at [address] [phone] Leah Rose, RD [facility] DR HEMATOLOGY [place] [address] Health Maintenance Due Date Last Done Comments CT Colonography 1974 Colonoscopy 1974 Colorectal Cancer Screening 1974 FIT DNA 1974 FIT 1974 Sigmoidoscopy (10 year) with FIT yearly 1974 Sigmoidoscopy 1974 Pneumococcal Vaccine: At-Ris k 5-64yrs (1 of 2 - PCV) 1980 DM Opthalmology Exam 1984 HIV screen 1992 Lipid Screening 1992 Hepatitis B vaccine (0-59 yr s) (1) 1993 Tdap adult 1993 Tetanus vaccine 1993 Covid-19 Vaccine (1 - 2022-2 4 season) 2024 Influenza (Flu) vaccine (1 o f 1 - Influenza standard series) 05/16/2024 DM Hemoglobin A1c 06/02/2024 03/02/2024, , 03/02/2024 DM Creatinine yearly 04/20/2025 04/20/2024, 04/08/2024, 04/01/2024, Additional history exists DM Urine Microalbumin yearly 05/05/2025, 12/12/2021, 12/22/2018, Additional history exists Hepatitis C Screening Completed 12/25/2022 Diabetes Screening (HgbA1C o r Glucose) Discontinued 04/20/2024, 04/08/2024, 04/01/2024, Additional history exists Medical Devices Implanted Type Area Sleeper Cutter Device Identifier Shelf Expiration Date Model / Serial / Lot Port Infusion 8fr Cath Power Lp Ct Plastic Dignity [id number]/2023 Implanted:Qty : 1 on 04/26/2024 by Latonia Oscar PA IMPLANTS Right: Chest Wall [employer] - [employer] [place] 03/14/2028 [id number] / [id number] / [id number] Description:RIGHGT 8FR MINI PORT PLACEMENT Procedures Procedure Name Priority Date/Time Associated Diagnosis Comments LAB SCAN 05/07/2024 12:00 AM EDT IR DRAIN CHECK/CHANGE/REMOVE Routine 05/05/2024 11:34 AM EDT Perihepatic abscess VITAMIN D, 25-HYDROXY Routine 05/05/2024 7:19 AM EDT 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 Obesity due to excess calories with serious comorbidity, unspecified classification PHOSPHORUS Routine 05/05/2024 7:19 AM EDT 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 Obesity due to excess calories with serious comorbidity, unspecified classification PTH Routine 05/05/2024 7:19 AM EDT Nephrotic [...] excess calories with serious comorbidity, unspecified classification IR MEDIPORT PLACEMENT Routine 04/26/2024 11:04 AM EDT Duodenal adenocarcinoma POC, GLUCOSE Routine 04/26/2024 9:51 AM EDT IR DRAIN CHECK/CHANGE/REMOVE Routine 04/21/2024 12:11 PM EDT Perihepatic abscess Duodenal adenocarcinoma EKG 12-LEAD Routine 04/21/2024 9:24 AM EDT CEA Routine 04/20/2024 12:39 PM EDT Duodenal adenocarcinoma PGX ONCOLOGY Routine 04/20/2024 12:39 PM EDT Duodenal adenocarcinoma FERRITIN Routine 04/20/2024 12:39 PM EDT H/O Whipple procedure IRON AND TIBC Routine 04/20/2024 12:39 PM EDT H/O Whipple procedure PHOSPHORUS Routine 04/20/2024 12:39 PM EDT Duodenal adenocarcinoma MAGNESIUM Routine 04/20/2024 12:39 PM EDT Duodenal adenocarcinoma COMPREHENSIVE METABOLIC PANEL Routine 04/20/2024 12:39 PM EDT Duodenal adenocarcinoma CBC (WITH DIFF) Routine 04/20/2024 12:39 PM EDT Duodenal adenocarcinoma IR DRAIN CHECK/CHANGE/REMOVE Routine 04/08/2024 12:38 PM EDT Perihepatic abscess Duodenal adenocarcinoma Obesity due to excess calories with serious comorbidity, unspecified classification CT ABDOMEN AND PELVIS W CONTRAST Routine 04/08/2024 11:27 AM EDT H/O Whipple procedure AMYLASE LEVEL BODY FLUID Routine 04/08/2024 9:30 AM EDT Duodenal adenocarcinoma DIFFERENTIAL, AUTOMATED Routine 04/08/20 8:17 AM EDT Duodenal adenocarcinoma HEMOGRAM Routine 04/08/2024 8:17 AM EDT Duodenal adenocarcinoma CBC (WITH DIFF) Routine 04/08/2024 8:17 AM EDT Duodenal adenocarcinoma COMPREHENSIVE METABOLIC PANEL Routine 04/08/2024 8:17 AM EDT Duodenal adenocarcinoma POCT GLUCOSE Routine 04/01/2024 12:31 PM EDT POCT GLUCOSE Routine 04/01/2024 7:33 AM EDT AMYLASE LEVEL BODY FLUID STAT 04/01/2024 6:37 AM EDT DIFFERENTIAL, AUTOMATED Routine 04/01/20 4:48 AM EDT HEMOGRAM Routine 04/01/2024 4:48 AM EDT CBC (WITH DIFF) Routine 04/01/2024 4:48 AM EDT PHOSPHORUS Routine 04/01/2024 4:48 AM EDT MAGNESIUM Routine 04/01/2024 4:48 AM EDT BASIC METABOLIC PANEL Routine 04/01/2024 4:48 AM EDT POCT GLUCOSE Routine 04/01/2024 3:09 AM EDT POCT GLUCOSE Routine 03/31/2024 11:56 PM EDT POCT GLUCOSE Routine 03/31/2024 7:22 PM EDT POCT GLUCOSE Routine 03/31/2024 4:15 PM EDT DIFFERENTIAL, AUTOMATED Routine 03/31/20 12:45 PM EDT HEMOGRAM Routine 03/31/2024 12:45 PM EDT CBC (WITH DIFF) Routine 03/31/2024 12:45 PM EDT POCT GLUCOSE Routine 03/31/2024 12:20 PM EDT PHOSPHORUS Routine 03/31/2024 8:30 AM EDT MAGNESIUM Routine 03/31/2024 8:30 AM EDT BASIC METABOLIC PANEL Routine 03/31/2024 8:30 AM EDT POCT GLUCOSE Routine 03/31/2024 8:05 AM EDT POCT GLUCOSE Routine 03/31/2024 4:51 AM EDT POCT GLUCOSE Routine 03/30/2024 11:46 PM EDT POCT GLUCOSE Routine 03/30/2024 7:23 PM EDT POCT GLUCOSE Routine 03/30/2024 4:28 PM EDT POCT GLUCOSE Routine 03/30/2024 11:59 AM EDT SCAN DOC: TELEMETRY STRIPS 03/30/2024 11:34 AM EDT POCT GLUCOSE Routine 03/30/2024 7:32 AM EDT PHOSPHORUS Routine 03/30/2024 6:00 AM EDT MAGNESIUM Routine 03/30/2024 6:00 AM EDT BASIC METABOLIC PANEL Routine 03/30/2024 6:00 AM EDT POCT GLUCOSE Routine 03/30/2024 4:19 AM EDT POCT GLUCOSE Routine 03/29/2024 11:38 PM EDT POCT GLUCOSE Routine 03/29/2024 7:36 PM EDT POCT GLUCOSE Routine 03/29/2024 3:46 PM EDT EKG 12-LEAD STAT 03/29/2024 3:33 PM EDT Severe protein-calorie malnutrition POCT GLUCOSE Routine 03/29/2024 11:56 AM EDT POCT GLUCOSE Routine 03/29/2024 11:16 AM EDT POCT GLUCOSE Routine 03/29/2024 7:22 AM EDT TRIGLYCERIDE Routine 03/29/2024 4:30 AM EDT HEPATIC FUNCTION PANEL Routine 4:30 AM EDT DIFFERENTIAL, AUTOMATED Routine 03/29/20 4:30 AM EDT HEMOGRAM Routine 03/29/2024 4:30 AM EDT CBC (WITH DIFF) Routine 03/29/2024 4:30 AM EDT MAGNESIUM Routine 03/29/2024 4:30 AM EDT PHOSPHORUS Routine 03/29/2024 4:30 AM EDT BASIC METABOLIC PANEL Routine 03/29/2024 4:30 AM EDT POCT GLUCOSE Routine 03/29/2024 4:11 AM EDT POCT GLUCOSE Routine 03/29/2024 12:05 AM EDT POCT GLUCOSE Routine 03/28/2024 8:51 PM EDT PHOSPHORUS Timed 03/28/2024 5:30 PM EDT MAGNESIUM Timed 03/28/2024 5:30 PM EDT BASIC METABOLIC PANEL Routine 03/28/2024 5:30 PM EDT POCT GLUCOSE Routine 03/28/2024 4:10 PM EDT POCT GLUCOSE Routine 03/28/2024 12:00 PM EDT SCAN DOC: TELEMETRY STRIPS 03/28/2024 11:39 AM EDT POCT GLUCOSE Routine 03/28/2024 7:41 AM EDT PHOSPHORUS Timed 03/28/2024 7:35 AM EDT MAGNESIUM Timed 03/28/2024 7:35 AM EDT BASIC METABOLIC PANEL Routine 03/28/2024 7:35 AM EDT POCT GLUCOSE Routine 03/28/2024 4:14 AM EDT POCT GLUCOSE Routine 03/28/2024 12:36 AM EDT HEMOGRAM Routine 03/28/2024 12:30 AM EDT POCT GLUCOSE Routine 03/27/2024 8:24 PM EDT PHOSPHORUS Timed 03/27/2024 6:10 PM EDT MAGNESIUM Timed 03/27/2024 6:10 PM EDT BASIC METABOLIC PANEL Routine 03/27/2024 6:10 PM EDT POCT GLUCOSE Routine 03/27/2024 3:53 PM EDT POCT GLUCOSE Routine 03/27/2024 12:04 PM EDT SCAN DOC: TELEMETRY STRIPS 03/27/2024 10:36 AM EDT POCT GLUCOSE Routine 03/27/2024 8:00 AM EDT BASIC METABOLIC PANEL Routine 03/27/2024 5:22 AM EDT PHOSPHORUS Timed 03/27/2024 5:22 AM EDT MAGNESIUM Timed 03/27/2024 5:22 AM EDT POCT GLUCOSE Routine 03/27/2024 4:53 AM EDT SCAN DOC: TELEMETRY STRIPS 03/27/2024 3:44 AM EDT PHOSPHORUS Timed 03/27/2024 12:14 AM EDT MAGNESIUM Timed 03/27/2024 12:14 AM EDT DIFFERENTIAL, AUTOMATED Routine 03/27/20 12:14 AM EDT HEMOGRAM Routine 03/27/2024 12:14 AM EDT LAVENDER TUBE HOLD Routine 03/27/2024 12 :14 AM EDT BASIC METABOLIC PANEL Routine 03/27/2024 12:14 AM EDT POCT GLUCOSE Routine 03/27/2024 12:10 AM EDT PHOSPHORUS Timed 03/26/2024 9:33 PM EDT MAGNESIUM Timed 03/26/2024 9:33 PM EDT POCT GLUCOSE Routine 03/26/2024 8:02 PM EDT SCAN DOC: TELEMETRY STRIPS 03/26/2024 6:45 PM EDT POCT GLUCOSE Routine 03/26/2024 5:05 PM EDT PHOSPHORUS Timed 03/26/2024 4:30 PM EDT MAGNESIUM Timed 03/26/2024 4:30 PM EDT BASIC METABOLIC PANEL Routine 03/26/2024 4:[address] PICC LINE: CONTACT VASCULAR ACCESS Routine 03/26/2024 4:12 PM EDT XR PICC PLACEMENT OVER 5 YEARS (IV TEAM) Routine 03/26/2024 4:02 PM EDT POCT GLUCOSE Routine 03/26/2024 1:04 PM EDT PHOSPHORUS Timed 03/26/2024 11:37 AM EDT MAGNESIUM Timed 03/26/2024 11:37 AM EDT BASIC METABOLIC PANEL Routine 03/26/2024 11:37 AM EDT POCT GLUCOSE Routine 03/26/2024 11:36 AM EDT POCT GLUCOSE Routine 03/26/2024 10:34 AM EDT POCT GLUCOSE Routine 03/26/2024 9:37 AM EDT POCT GLUCOSE Routine 03/26/2024 7:57 AM EDT POCT GLUCOSE Routine 03/26/2024 6:41 AM EDT PHOSPHORUS Timed 03/26/2024 5:19 AM EDT MAGNESIUM Timed 03/26/2024 5:19 AM EDT BASIC METABOLIC PANEL Routine 03/26/2024 5:19 AM EDT POCT GLUCOSE Routine 03/26/2024 3:55 AM EDT POCT GLUCOSE Routine 03/26/2024 2:33 AM EDT DIFFERENTIAL, AUTOMATED Routine 03/26/20 2:29 AM EDT HEMOGRAM Routine 03/26/2024 2:29 AM EDT PHOSPHORUS Timed 03/26/2024 2:29 AM EDT MAGNESIUM Timed 03/26/2024 2:29 AM EDT BASIC METABOLIC PANEL Routine 03/26/2024 2:29 AM EDT CBC (WITH DIFF) Routine 03/26/2024 2:29 AM EDT POCT GLUCOSE Routine 03/26/2024 12:05 AM EDT PHOSPHORUS Timed 03/25/2024 10:27 PM EDT MAGNESIUM Timed 03/25/2024 10:27 PM EDT BASIC METABOLIC PANEL Routine 03/25/2024 10:27 PM EDT POCT GLUCOSE Routine 03/25/2024 8:11 PM EDT POCT GLUCOSE Routine 03/25/2024 6:56 PM EDT POCT GLUCOSE Routine 03/25/2024 6:07 PM EDT POCT GLUCOSE Routine 03/25/2024 5:08 PM EDT POCT GLUCOSE Routine 03/25/2024 4:04 PM EDT BASIC METABOLIC PANEL Routine 03/25/2024 3:25 PM EDT POCT GLUCOSE Routine 03/25/2024 3:01 PM EDT POCT GLUCOSE Routine 03/25/2024 2:02 PM EDT POCT GLUCOSE Routine 03/25/2024 12:50 PM EDT POCT GLUCOSE Routine 03/25/2024 11:[address] GUIDED DRAIN PANCREATIC/PERIPANCREAT IC Routine 03/25/2024 11:03 AM EDT AMYLASE LEVEL BODY FLUID Routine 03/25/2024 10:00 AM EDT ANAEROBIC CULTURE Routine 03/25/2024 10: 00 AM EDT BODY FLUID CULTURE, AEROBIC Routine 03/25/2024 10:00 AM EDT HC GRAM STAIN FOR BACTERIA Routine 03/25/2024 10:00 AM EDT POCT GLUCOSE Routine 03/25/2024 9:46 AM EDT POCT GLUCOSE Routine 03/25/2024 8:00 AM EDT LACTATE, WHOLE BLOOD Routine 03/25/2024 6:00 AM EDT BETA HYDROXYBUTYRATE Routine 03/25/2024 4:35 AM EDT DIFFERENTIAL, AUTOMATED Routine 03/25/20 24 4:35 AM EDT HEMOGRAM Routine 03/25/2024 4:35 AM EDT BASIC METABOLIC PANEL Routine 03/25/2024 4:35 AM EDT CBC (WITH DIFF) Routine 03/25/2024 4:35 AM EDT POCT GLUCOSE Routine 03/25/2024 4:31 AM EDT SCAN DOC: TELEMETRY STRIPS 03/25/2024 1:32 AM EDT POCT GLUCOSE Routine 03/24/2024 11:56 PM EDT DIFFERENTIAL, AUTOMATED Routine 03/24/20 24 10:21 PM EDT HEMOGRAM Routine 03/24/2024 10:21 PM EDT BASIC METABOLIC PANEL Routine 03/24/2024 10:21 PM EDT PHOSPHORUS Routine 03/24/2024 10:21 PM EDT MAGNESIUM Routine 03/24/2024 10:21 PM EDT CBC (WITH DIFF) Routine 03/24/2024 10:21 PM EDT POCT GLUCOSE Routine 03/24/2024 9:17 PM EDT REQUEST FOR 2ND READ CT ABDOMEN AND PELVIS Routine 03/24/2024 7:48 PM EDT FILM LIBRARY STORAGE ONLY CT CHEST ABDOMEN PELVIS Routine 03/24/2024 5:27 PM EDT POCT GLUCOSE Routine 03/08/2024 11:26 AM EDT POCT GLUCOSE Routine 03/08/2024 8:13 AM EDT SCAN, PERIPHERAL BLOOD Routine 4:44 AM EDT DIFFERENTIAL, AUTOMATED Routine 03/08/20 4:44 AM EDT HEMOGRAM Routine 03/08/2024 4:44 AM EDT COMPREHENSIVE METABOLIC PANEL Routine 03/08/2024 4:44 AM EDT CBC (WITH DIFF) Routine 03/08/2024 4:44 AM EDT POCT GLUCOSE Routine 03/08/2024 4:25 AM EDT POCT GLUCOSE Routine 03/08/2024 12:06 AM EDT POCT GLUCOSE Routine 03/07/2024 8:35 PM EDT POCT GLUCOSE Routine 03/07/2024 4:08 PM EDT POCT GLUCOSE Routine 03/07/2024 12:20 PM EDT POCT GLUCOSE Routine 03/07/2024 8:35 AM EDT DIFFERENTIAL, AUTOMATED Routine 03/07/20 4:53 AM EDT HEMOGRAM Routine 03/07/2024 4:53 AM EDT COMPREHENSIVE METABOLIC PANEL Routine 03/07/2024 4:53 AM EDT CBC (WITH DIFF) Routine 03/07/2024 4:53 AM EDT POCT GLUCOSE Routine 03/07/2024 3:25 AM EDT POCT GLUCOSE Routine 03/06/2024 11:20 PM EDT POCT GLUCOSE Routine 03/06/2024 8:39 PM EDT POCT GLUCOSE Routine 03/06/2024 3:50 PM EDT POCT GLUCOSE Routine 03/06/2024 11:38 AM EDT POCT GLUCOSE Routine 03/06/2024 8:07 AM EDT EKG 12-LEAD STAT 03/06/2024 6:30 AM EDT Duodenal adenocarcinoma XR ABDOMEN FLAT AND UPRIGHT Routine 03/06/2024 5:29 AM EDT POCT GLUCOSE Routine 03/06/2024 4:39 AM EDT DIFFERENTIAL, AUTOMATED Routine 03/06/20 4:09 AM EDT HEMOGRAM Routine 03/06/2024 4:09 AM EDT COMPREHENSIVE METABOLIC PANEL Routine 03/06/2024 4:09 AM EDT CBC (WITH DIFF) Routine 03/06/2024 4:09 AM EDT POCT GLUCOSE Routine 03/05/2024 11:13 PM EDT POCT GLUCOSE Routine 03/05/2024 7:29 PM EDT POCT GLUCOSE Routine 03/05/2024 4:40 PM EDT AMYLASE LEVEL BODY FLUID Routine 03/05/2024 11:20 AM EDT POCT GLUCOSE Routine 03/05/2024 11:14 AM EDT POCT GLUCOSE Routine 03/05/2024 7:47 AM EDT POCT GLUCOSE Routine 03/05/2024 5:14 AM EDT DIFFERENTIAL, AUTOMATED Routine 03/05/20 4:21 AM EDT HEMOGRAM Routine 03/05/2024 4:21 AM EDT COMPREHENSIVE METABOLIC PANEL Routine 03/05/2024 4:21 AM EDT CBC (WITH DIFF) Routine 03/05/2024 4:21 AM EDT POCT GLUCOSE Routine 03/05/2024 12:28 AM EDT LAB SCAN 03/05/2024 12:00 AM EDT POCT GLUCOSE Routine 03/04/2024 8:02 PM EDT POCT GLUCOSE Routine 03/04/2024 4:18 PM EDT POCT GLUCOSE Routine 03/04/2024 11:34 AM EDT POCT GLUCOSE Routine 03/04/2024 7:30 AM EDT DIFFERENTIAL, AUTOMATED Routine 03/04/20 6:12 AM EDT HEMOGRAM Routine 03/04/2024 6:12 AM EDT CBC (WITH DIFF) Routine 03/04/2024 6:12 AM EDT COMPREHENSIVE METABOLIC PANEL Routine 03/04/2024 6:12 AM EDT AMYLASE LEVEL BODY FLUID Routine 03/04/2024 5:30 AM EDT POCT GLUCOSE Routine 03/04/2024 5:15 AM EDT POCT GLUCOSE Routine 03/03/2024 11:19 PM EDT POCT GLUCOSE Routine 03/03/2024 8:31 PM EDT POCT GLUCOSE Routine 03/03/2024 3:59 PM EDT BASIC METABOLIC PANEL Timed 03/03/2024 1:13 PM EDT POCT GLUCOSE Routine 03/03/2024 12:20 PM EDT AMYLASE LEVEL BODY FLUID Routine 03/03/2024 11:40 AM EDT POCT GLUCOSE Routine 03/03/2024 8:08 AM EDT POCT GLUCOSE Routine 03/03/2024 3:57 AM EDT CREATININE, URINE, RANDOM Routine 03/03/2024 1:19 AM EDT SODIUM, URINE, RANDOM Routine 03/03/2024 1:19 AM EDT GREEN TUBE HOLD Routine 03/03/2024 1:04 AM EDT DIFFERENTIAL, AUTOMATED STAT 03/03/20 1:04 AM EDT HEMOGRAM STAT 03/03/2024 1:04 AM EDT LACTATE, WHOLE BLOOD STAT 03/03/2024 1:04 AM EDT CBC (WITH DIFF) STAT 03/03/2024 1:04 AM EDT PHOSPHORUS STAT 03/03/2024 1:04 AM EDT MAGNESIUM STAT 03/03/2024 1:04 AM EDT COMPREHENSIVE METABOLIC PANEL Routine 03/03/2024 1:04 AM EDT POCT GLUCOSE Routine 03/02/2024 10:59 PM EDT XR ABDOMEN 1 VIEW STAT 03/02/2024 9:5 4 PM EDT POCT GLUCOSE Routine 03/02/2024 7:41 PM EDT XR ABDOMEN 1 VIEW STAT 03/02/2024 7:3 8 PM EDT POCT GLUCOSE Routine 03/02/2024 4:00 PM EDT POCT GLUCOSE Routine 03/02/2024 11:12 AM EDT POCT GLUCOSE Routine 03/02/2024 7:48 AM EDT ASPARTATE AMINOTRANSFERASE Routine 03/02/2024 5:27 AM EDT HEMOGLOBIN A1C Routine 03/02/2024 4:30 AM EDT DIFFERENTIAL, AUTOMATED Routine 03/02/20 4:30 AM EDT HEMOGRAM Routine 03/02/2024 4:30 AM EDT COMPREHENSIVE METABOLIC PANEL Routine 03/02/2024 4:30 AM EDT CBC (WITH DIFF) Routine 03/02/2024 4:30 AM EDT POCT GLUCOSE Routine 03/02/2024 4:26 AM EDT POCT GLUCOSE Routine 03/02/2024 12:12 AM EDT POCT GLUCOSE Routine 03/01/2024 7:55 PM EDT SCAN DOC: TELEMETRY STRIPS 03/01/2024 7:46 PM EDT DIFFERENTIAL, AUTOMATED STAT 03/01/20 7:02 PM EDT HEMOGRAM STAT 03/01/2024 7:02 PM EDT CBC (WITH DIFF) STAT 03/01/2024 7:02 PM EDT COMPREHENSIVE METABOLIC PANEL STAT 03/01/2024 7:02 PM EDT POCT GLUCOSE Routine 03/01/2024 6:44 PM EDT BLOOD GAS ARTERIAL POC Routine 5:49 PM EDT POCT GLUCOSE Routine 03/01/2024 5:02 PM EDT POCT GLUCOSE Routine 03/01/2024 4:07 PM EDT SPECIMEN TO PATHOLOGY Routine 03/01/2024 3:40 PM EDT POCT GLUCOSE Routine 03/01/2024 2:58 PM EDT BLOOD GAS ARTERIAL POC Routine 2:58 PM EDT POCT GLUCOSE Routine 03/01/2024 2:02 PM EDT POCT GLUCOSE Routine 03/01/2024 1:00 PM EDT ANAEROBIC CULTURE Routine 03/01/2024 1:0 0 PM EDT BODY FLUID CULTURE, AEROBIC Routine 03/01/2024 1:00 PM EDT HC BODY FLUID CULTURE Routine 03/01/2024 1:00 PM EDT SPECIMEN TO PATHOLOGY Routine 03/01/2024 12:50 PM EDT POCT GLUCOSE Routine 03/01/2024 12:01 PM EDT SPECIMEN TO PATHOLOGY Routine 03/01/2024 11:07 AM EDT BLOOD GAS ARTERIAL POC Routine 10:55 AM EDT SURGICAL PATHOLOGY REPORT Routine 03/01/2024 10:49 AM EDT SPECIMEN TO PATHOLOGY Routine 03/01/2024 10:49 AM EDT POCT GLUCOSE Routine 03/01/2024 9:59 AM EDT TYPE AND SCREEN VALIDITY Routine 03/01/2024 9:31 AM EDT ABORH RECHECK STATUS STAT 03/01/2024 9:31 AM EDT TYPE AND SCREEN (MC/CGP/FABIOLA) STAT 03/01/2024 9:31 AM EDT POCT GLUCOSE Routine 03/01/2024 9:14 AM EDT BLOOD GAS ARTERIAL POC Routine 8:39 AM EDT XR FLUORO NO RAD <1HR - OR USE Routine 03/01/2024 7:45 AM EDT Transfer Skin Pedicle Flap ([id number]) 03/01/2024 7:42 AM EDT DUODENUM ADENCARCINOMA Part Remv Panc, Prox+Remv Duod+Anast ([id number]) 03/01/2024 7:42 AM EDT DUODENUM ADENCARCINOMA [id number] ONLY Routine 7:21 AM EDT CREATININE Routine 03/01/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 03/01/2024 7:03 AM EDT FILM LIBRARY STORAGE ONLY CT ABDOMEN AND PELVIS Routine 02/26/2024 2:[address] SCAN (SCAN) 02/26/2024 12:[address] SCAN (SCAN) 02/26/2024 12:00 AM EDT HC HEPATITIS C ANTIBODY Routine 12/26/19 11:50 AM EDT CHAN (nonalcoholic steatohepatitis) from Last 3 Months or Most Recently Relevant to Health Maintenance Results * Scan Doc: Lab (05/07/2024 12:00 AM EDT) Only the most recent of2 resultswithin the time period is included. Narrative 05/07/2024 12:00 AM EDT Ordered by an unspecified provider. Scanning Provider MEDIA MGR SCAN EXT O RDR/RSLT * IR Drain Check/Change/Remove (05/05/2024 11:34 AM EDT) Only the most recent of3 resultswithin the time period is included. Anatomical Region Laterality Modality Head X-Ray Angiograph [...] sterile barrier technique was used throughout. ?? Drug Regulatory Affairs Specialist fluoroscopic images were obtained. ??Contrast was injected [...] present throughout the procedure. Silvio Wheeler MD G IR ORDERABLES * PTH (05/05/2024 7:19 AM EDT) Parathyroid Hormone 50 15 - 65 pg/mL 05/05/2024 8:56 AM EDT [facility] Blood VENOUS BLOOD SPECIMEN / Unknown Venipuncture / Unknown 05/05/2024 7:19 AM EDT 05/05/2024 7:23 AM EDT Shahida Zamudio APRN CHEMISTRY ORDERABLES [facility] [place] [address] * (ABNORMAL) Protein/Creatinine Ratio, urine (05/05/2024 7:19 AM EDT) Protein, Urine 25(H) 0 - 12 mg/dL 05/05/2024 11:45 AM EDT [facility] Creatinine, Urine 178 mg/dL 05/05/2024 11:45 AM EDT [facility] Protein / Creatinine Ratio, Urine 0.1 ratio 05/05/2024 11:45 AM EDT [facility] Urine URINE SPECIMEN / Unknown Non Blood Collection / Unknown 05/05/2024 7:19 AM EDT 05/05/2024 7:23 AM EDT Shahida Ly Robb RUST URINE ORDERABLES [facility] [place] [address] * (ABNORMAL) U Albumin/Cre Ratio (05/05/2024 7:19 AM EDT) Albumin, Urine 63.8 mg/L 05/05/2024 11:45 AM EDT [facility] Creatinine, Urine 178 mg/dL 024 11:45 AM EDT [facility] Albumin / Creatinine Ratio, Urine 36(H) 0 - 29 mcg/mg Cr 05/05/2024 11:45 AM EDT [facility] Comment: Reference Ranges: ?? <30 [...] Zamudio APRN URINE ORDERABLES Performing Organization Address [facility] Co de Phone Number [facility] [place] [address] * (ABNORMAL) Vitamin D, 25-Hydroxy (05/05/2024 7:19 AM EDT) Vitamin D Total 25 OH 12(L) 21 - 100 ng/ml 05/05/2024 10:36 AM EDT [facility] Vitamin D Total 25 OH Interp Deficient 05/05/2024 10:36 AM EDT [facility] Blood VENOUS BLOOD SPECIMEN / Unknown Venipuncture / Unknown 05/05/2024 7:19 AM EDT 05/05/2024 7:23 AM EDT Shahida Zamudio APRN CHEMISTRY ORDERABLES Performing Organization Address [facility] Co de Phone Number [facility] [place] [address] * Phosphorus (05/05/2024 7:19 AM EDT) Only the most recent of19 resultswithin the time period is included. Phosphorus 3.0 2.5 - 4.5 mg/dL 05/05/2024 7:56 AM EDT [facility] Blood VENOUS BLOOD SPECIMEN / Unknown Venipuncture / Unknown 05/05/2024 7:19 AM EDT 05/05/2024 7:23 AM EDT Shahida Zamudio APRN CHEMISTRY ORDERABLES Performing Organization Address City/[facility] Co de Phone Number [facility] [place] [address] * IR Mediport Placement (04/26/2024 11:04 AM EDT) Anatomical Region Laterality Modality X-Ray Angiograph y Narrative 04/26/2024 11:38 AM EDT Interventional Radiology Procedure Note Procedure: Venous chest port implant Indication: Duodenal adenocarcinoma, 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 Active time-out was performed prior to the procedure. Maximum sterile barrier technique was used throughout the procedure. Sedation: The patient received split doses of intravenous midazolam and fentanyl from the interventional radiology nurse while pulse, pressure, and oxygen saturation were continuously monitored. Technique: The patient's neck was sonographically evaluated for potential access sites, and the right internal jugular vein was determined to be patent. Local anesthetic was administered. The vein was accessed via real-time ultrasound and micropuncture set with 21 gauge needle and a permanent image was stored. A 0.018 wire was advanced into superior vena cava. The remainder of the procedure was performed under fluoroscopic guidance. A 4 Fr introducer sheath was placed and the wire exchanged for a 0.035 J wire. The wire was advanced into the inferior vena cava. Local anesthetic was administered on the anterior chest wall inferolateral to the puncture site. A 2 cm transverse incision was made in the right anterior chest wall, and with blunt dissection the port pocket was created. A trocar was then used to advance the catheter subcutaneously to the venous access site. A 4 Fr introducer sheath was exchanged for a peel-away sheath over the wire. The wire and inner obturator were removed and the catheter advanced into the superior vena cava under fluoroscopic guidance. The catheter was trimmed to appropriate length and attached to the port. The port was inserted into the pocket and the sheath was removed. Catheter tip location was identified and a permanent image was stored. The port flushed and aspirated well. The pocket was closed using a two-layer technique with 2-0 vicryl deep interrupted and 4-0 vicryl running sutures. The skin closed was with dermabond. The port was not left accessed. Medications: Lidocaine 1% 10 mL subcut; lidocaine 2% with epinephrine 1:100,000 10 mL subcut; midazolam 2.5 mg IV; fentanyl 125 mcg IV Contrast: None Fluoroscopy: 8.64 mGy Estimated blood loss: 2 mL Complications: No immediate Impression: Patent right internal jugular vessel by sonographic evaluation. Implantation of power-injectable, Medcomp Dignity Mini 8 F low profile single-lumen port in right chest with tip in the superior cavoatrial junction. The port may be used immediately. Service provider: Latonia Oscar PA-C Present during the intraservice time as documented by the interventional radiology nurse. Attending of record: Juan Wright MD 04/26/2024 Rodriguez Fowler MD IMG IR ORDERABLES * POC, GLUCOSE (04/26/2024 9:51 AM EDT) Pathologist [facility] Glucometer, POC 178 65 - 199 mg/dL 04/26/2024 9:52 AM EDT [facility] Comment:Supplemental ranges: <140 mg/dL before meals <180 mg/dL all other times of the day. Blood CAPILLARY BLOOD / Unknown 04/26/2024 9:51 AM EDT 04/26/2024 9:52 AM EDT Rodriguez Fowler MD POINT OF CARE TEST O RDERABLES Performing Organization Address [facility] Co de Phone Number [facility] [place] [address] * EKG 12 Lead (04/21/2024 9:24 AM EDT) Only the most recent of3 resultswithin the time period is included. Ventricular rate 65 BPM MUSE SYSTEM Atrial Rate 65 BPM MUSE SYSTEM P-R Interval 152 ms MUSE SYSTEM QRS Duration 92 ms MUSE SYSTEM Q-T Interval 432 ms MUSE SYSTEM QTC Calculated (Bezet) 449 ms MUSE SYSTEM Calculated P [place] 64 degrees MUSE SYSTEM Calculated R [place] 52 degrees MUSE SYSTEM Calculated T [place] 59 degrees MUSE SYSTEM INTERPRETATION Normal sinus rhythm Normal ECG When compared with ECG of 29-MAR-2024 15:33, No significant change was found Confirmed by MD Murry Danette ([id number]) on 04/21/2024 8:37:04 PM MUSE SYSTEM 04/21/2024 9:24 AM EDT 04/21/2024 8:37 PM EDT Unknown ECG ORDERABLES Performing Organization Address City/[facility]/ZIP Co de Phone Number MUSE SYSTEM * PGx Oncology (04/20/2024 12:39 PM EDT) [facility] NGS Report Status Normal 04/27/2024 4:56 PM EDT [facility] Blood VENOUS BLOOD SPECIMEN / Unknown Venipuncture / Unknown 04/20/2024 12:39 PM EDT 04/20/2024 12:39 PM EDT Rodriguez Fowler MD MOLECULAR ORDERABLES [facility] [place] [address] * (ABNORMAL) Iron and TIBC (04/20/2024 12:39 PM EDT) [facility] Iron 49 45 - 160 mcg/dL 04/20/2024 5:03 PM EDT [facility] Unsaturated Iron Binding Capacity 184 110 - 370 mcg/dL 04/20/2024 5:03 PM EDT [facility] TIBC 233(L) 250 - 450 mcg/dL 04/20/2024 5:03 PM EDT [facility] Iron Saturation 21 20 - 50 % 5:03 PM EDT [facility] Blood VENOUS BLOOD SPECIMEN / Unknown Venipuncture / Unknown 04/20/2024 12:39 PM EDT 04/20/2024 12:39 PM EDT Rudi Hernandez MD CHEMISTRY ORDERABLES [facility] [place] [address] * (ABNORMAL) CBC (with Diff) (04/20/2024 12:39 PM EDT) [facility] White Blood Cell 7.18 x10(3)/mc L 04/20/2024 12:49 PM EDT [facility] Red Blood Cell 5.26 4.58 - 5.54 x10(6)/mc L 04/20/2024 12:49 PM [facility] Hemoglobin 12.6(L) 13.7 - 16.5 g/dL 04/20/2024 12:49 PM [facility] Hematocrit 40.5 40.5 - 48.5 % 04/20/2024 12:49 PM [facility] Mean Cell Volume 77.0(L) 82.9 - 93.1 fL 04/20/2024 12:49 PM [facility] Mean Cell Hemoglobin 24.0(L) 27.5 - 32.1 pg 04/20/2024 12:49 PM [facility] Mean Cell Hemoglobin Concentration 31.1(L) 32.0 - 35.7 g/dL 04/20/2024 12:49 PM [facility] Platelet 178 145 - 357 x10(3)/mc L 04/20/2024 12:49 PM [facility] Mean Platelet Volume 10.5 7.6 - 12.9 fL 04/20/2024 12:49 PM [facility] RDW Standard Deviation 48.7(H) 36.0 - 45.0 fL 04/20/2024 12:49 PM [facility] RDW coefficient of variation 17.7(H) 11.4 - 13.8 % 04/20/2024 12:49 PM [facility] NRBC% auto 0.0 % 04/20/2024 12:49 PM [facility] NRBC Absolute 0.00 0.00 - 0.00 x10(3)/mc L 04/20/2024 12:49 PM [facility] Neutrophil % 66.4 % 04/20/2024 12:49 PM [facility] Neutrophil Absolute (ANC) - Automated 4.77 1.70 - 6.10 x10(3)/mc L 04/20/2024 12:49 PM [facility] Lymph % 20.8 % 04/20/2024 12:49 PM [facility] Lymph Absolute 1.49 0.90 - 3.20 x10(3)/mc L 04/20/2024 12:49 PM EDT [facility] Monocyte % 6.1 % 04/20/2024 12:49 PM EDT [facility] Monocyte Absolute 0.44 0.30 - 0.90 x10(3)/mc L 04/20/2024 12:49 PM EDT [facility] Eos % 5.3 % 04/20/2024 12:49 PM EDT [facility] Eos Absolute 0.38 0.00 - 0.40 x10(3)/mc L 04/20/2024 12:49 PM EDT [facility] Basophil % 0.6 % 04/20/2024 12:49 PM EDT [facility] Baso Absolute 0.04 0.00 - 0.10 x10(3)/mc L 04/20/2024 12:49 PM EDT [facility] Immature Gran % 0.8 % 12:49 PM EDT [facility] Immature Gran Absolute 0.06(H) 0.00 - 0.04 x10(3)/mc L 04/20/2024 12:49 PM EDT [facility] Blood VENOUS BLOOD SPECIMEN / Unknown Venipuncture / Unknown 04/20/2024 12:39 PM EDT 04/20/2024 12:39 PM EDT Rudi Hernandez MD HEMATOLOGY ORDERABLE S [facility] [place] [address] * Magnesium (04/20/2024 12:39 PM EDT) Only the most recent of18 resultswithin the time period is included. Magnesium 0.74 0.69 - 1.07 mMol/L 04/20/2024 1:28 PM EDT [facility] Blood VENOUS BLOOD SPECIMEN / Unknown Venipuncture / Unknown 04/20/2024 12:39 PM EDT 04/20/2024 12:39 PM EDT Rudi Hernandez MD CHEMISTRY ORDERABLES Performing Organization Address [facility] Co de Phone Number [facility] [place] [address] * Ferritin (04/20/2024 12:39 PM EDT) Ferritin 55 31 - 409 ng/ml 04/20/2024 1:24 PM EDT [facility] Blood VENOUS BLOOD SPECIMEN / Unknown Venipuncture / Unknown 04/20/2024 12:39 PM EDT 04/20/2024 12:39 PM EDT Rudi Hernandez MD CHEMISTRY ORDERABLES Performing Organization Address [facility] Phone Number [facility] [place] [address] * CEA (04/20/2024 12:39 PM EDT) Carcinoembryonic Antigen 1.1 <=3.8 ng/ml 04/20/2024 1:24 PM EDT [facility] Comment: Some smokers may have elevated CEA, generally < 5.5 ng/mL. This result was generated using a Amanda Bonifacio immunoassay. ??Results obtained from other methods or manufacturers cannot be used interchangeably with this method. Blood VENOUS BLOOD SPECIMEN / Unknown Venipuncture / Unknown 04/20/2024 12:39 PM EDT 04/20/2024 12:39 PM EDT Rodriguez Fowler MD CHEMISTRY ORDERABLES Performing Organization Address [facility] Co de Phone Number [facility] [place] [address] * (ABNORMAL) Comprehensive metabolic panel (04/20/2024 12:39 PM EDT) Only the most recent of10 resultswithin the time period is included. Glucose 204(H) 65 - 199 mg/dL 04/20/2024 1:28 PM [facility] Comment:Glucose Concentratio n >=200 mg/dL plus symptoms is consistent with Diabetes Mellitus. Blood Urea Nitrogen 5(L) 10 - 20 mg/dL 04/20/2024 1:28 PM [facility] Creatinine 0.82 0.80 - 1.50 mg/dL 04/20/2024 1:28 PM [facility] Sodium 141 135 - 145 mMol/L 04/20/2024 1:28 PM [facility] Potassium 4.1 3.5 - 5.0 mMol/L 04/20/2024 1:28 PM [facility] Chloride 104 98 - 107 mMol/L 04/20/2024 1:28 PM [facility] Carbon Dioxide 27 22 - 31 mMol/L 04/20/2024 1:28 PM [facility] Anion Gap 10 5 - 15 mMol/L 04/20/2024 1:28 PM [facility] Calcium 9.2 8.5 - 10.5 mg/dL 04/20/2024 1:28 PM [facility] Protein, Total 6.5 6.1 - 8.0 g/dL 04/20/2024 1:28 PM [facility] Albumin 3.5 3.2 - 5.2 g/dL 04/20/2024 1:28 PM [facility] Aspartate Aminotransferase 15 <=39 unit/L 04/20/2024 1:28 PM [facility] Alanine Aminotransferase 14 0 - 55 unit/L 04/20/2024 1:28 PM [facility] Alkaline Phosphatase 71 40 - 130 unit/L 04/20/2024 1:28 PM [facility] Bilirubin, Total 0.3 <=1.3 mg/dL 04/20/2024 1:28 PM [facility] Est Glomerular Filtration Rate - Male 108 mL/min/1. 73 m?? 04/20/2024 1:28 PM EDT [facility] Comment: This patient's estimated GFR was calculated using the 2020 CKD-EPI equation. The estimated GFR can vary from the measured GFR by up to 30% in the absence of rapidly changing kidney function. Assessment of the estimated GFR is not appropriate when creatinine concentrations are rapidly changing. For clinical situations in which a more precise estimate of GFR is necessary, consider alternative methods of GFR estimation such as a 24-hour urine creatinine clearance. Assignment of CKD stage 1 - 5 for patients with an eGFR near the transition point between stages may be based on clinical assessment of muscle mass and symptoms in addition to eGFR. Link: eGFR Calculator [employer] Fasting Status No 04/20/2024 1:28 PM EDT [facility] Blood VENOUS BLOOD SPECIMEN / Unknown Venipuncture / Unknown 04/20/2024 12:39 PM EDT 04/20/2024 12:39 PM EDT Rudi Hernandez MD CHEMISTRY ORDERABLES [facility] [place] [address] * CT Abdomen & Pelvis w Contrast (04/08/2024 11:27 AM EDT) [employer] WORKSTATION ID [id number] RAD Anatomical Region Laterality Modality Abdomen, Pelvis Computed Tomogra phy Impressions 04/09/2024 10:10 AM EDT 1. ??The previously seen fluid and air collection in the right upper quadrant has been drained following placement of a pigtail drain. 2. ?? A separate unchanged linear collection, unchanged, as described above. 3. ??Additional findings, as above. Thank you for letting us participate in the care of this patient. ??If you are a health care provider and have any questions regarding this report, please contact the number below. ??For patients who have questions please contact the health caretaker grounds that requested your imaging first. ? Electronically signed by: Flakito Cummings MD, [facility] ([phone]), at 04/09/2024 10:10 AM Narrative 04/09/2024 10:10 AM EDT EXAMINATION: CT ABDOMEN AND PELVIS W CONTRAST CLINICAL HISTORY: Pt s/p whipple, with IR drain for post-op abscess, drain volume still high and persistent leukocytosis. 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 Administered 120.0 ml of OMNIPAQUE 350.00 mg/ml. Oral contrast was not administered. COMPARISON: March 24, 2024 FINDINGS: Lower chest: Minimal dependent changes at the bases. No pericardial or pleural effusion. Liver: Normal size and attenuation without lesions. Bile ducts: Nondilated. Persistent pneumobilia in the left lobe. Gallbladder: Removed. Pancreas: Post Whipple changes. The previously seen fluid and air collection in the right upper quadrant has been drained in the interim following placement of a pigtail drain. No residual collection detected. There is a separate linear collection, approximately 4 x 1 cm in size, position and more medially, which containing surgical clips and appears unchanged (series 301 image 45). Spleen: Normal. Adrenals: Normal. Kidneys: Normal. Urinary Bladder: Decompressed and unremarkable. Vasculature: Unchanged luminal narrowing of the portal vein at the level of the postsurgical bed. No abdominal aortic aneurysm. Lymph Nodes: No enlarged lymph nodes. Bowel: Stomach is distended with ingested material. No abnormal small bowel dilatation or air-fluid levels. Peritoneum and retroperitoneum: No free fluid or loculated fluid collection. No pneumoperitoneum. No mesenteric inflammation. Abdominal wall: Healed vertical incision. No mass or hernia. Reproductive organs: Normal. Osseous structures: No suspicious lesions. Procedure Note Flakito Cummings MD - 04/09/2024 EXAMINATION: CT ABDOMEN AND PELVIS W CONTRAST CLINICAL HISTORY: Pt s/p whipple, with IR drain for post-op abscess,drain volume still high and persistent leukocytosis. 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 Administered 120.0 ml of OMNIPAQUE 350.00mg/ml. Oral contrast was not administered. COMPARISON: March 24, 2024 FINDINGS: Lower chest: Minimal dependent changes at the bases. No pericardial orpleural effusion. Liver: Normal size and attenuation without lesions. Bile ducts: Nondilated. Persistent pneumobilia in the left lobe. Gallbladder: Removed. Pancreas: Post Whipple changes. The previously seen fluid and aircollection in the right upper quadrant has been drained in the interim followingplacement of a pigtail drain. No residual collection detected. There is a separatelinear collection, approximately 4 x 1 cm in size, position and more medially,which containing surgical clips and appears unchanged (series 301 image 45). Spleen: Normal. Adrenals: Normal. Kidneys: Normal. Urinary Bladder: Decompressed and unremarkable. Vasculature: Unchanged luminal narrowing of the portal vein at the levelof the postsurgical bed. No abdominal aortic aneurysm. Lymph Nodes: No enlarged lymph nodes. Bowel: Stomach is distended with ingested material. No abnormal smallbowel dilatation or air-fluid levels. Peritoneum and retroperitoneum: No free fluid or loculated fluidcollection. No pneumoperitoneum. No mesenteric inflammation. Abdominal wall: Healed vertical incision. No mass or hernia. Reproductive organs: Normal. Osseous structures: No suspicious lesions. IMPRESSION 1. The previously seen fluid and air collection in the right upperquadrant has been drained following placement of a pigtail drain. 2. A separate unchanged linear collection, unchanged, as describedabove. 3. Additional findings, as above. Thank you for letting us participate in the care of this patient. If youare a health care provider and have any questions regarding this report,please contact the number below. For patients who have questions please contactthe health caretaker grounds that requested your imaging first. Electronically signed by: Flakito Cummings MD, [facility]([phone]), at 04/09/2024 10:10 AM Rudi Hernandez MD IMG CT ORDERABLES * Amylase Level Body Fluid (04/08/2024 9:30 AM EDT) Only the most recent of6 resultswithin the time period is included. Amylase, Fluid >7,500 unit/L [facility] Comment: Reference intervals are unavailable for this test in body fluids. Comparison of this result with the concentration in blood, serum, or plasma is recommended. This test has not been cleared by the [place] FDA. Performance characteristics of this test for the analysis of body fluids were determined by [facility] in accordance with CLIA requirements. This laboratory is qualified under CLIA to perform high-complexity testing. Amylase BF Type BASIA Drain [facility] BASIA Drain 04/08/2024 9:30 AM EDT 04/08/2024 9:40 AM EDT Narrative Resulting Agency Comment Spec In Lab Rudi Hernandez MD BODY FLUIDS AND STOO LS ORDERABLES [facility] [place] [address] * (ABNORMAL) Hemogram (04/08/2024 8:17 AM EDT) Only the most recent of17 resultswithin the time period is included. White Blood Cell 10.1(H) 4.0 - 9.5 x10(3)/mc L [facility] Red Blood Cell 5.86(H) 4.58 - 5.54 x10(6)/mc L [facility] Hemoglobin 14.0 13.7 - 16.5 g/dL [facility] Hematocrit 45.1 40.5 - 48.5 % [facility] Mean Cell Volume 77.0(L) 82.9 - 93.1 fL [facility] Mean Cell Hemoglobin 23.9(L) 27.5 - 32.1 pg [facility] Mean Cell Hemoglobin Concentration 31.0(L) 32.0 - 35.7 g/dL [facility] Platelet 248 145 - 357 x10(3)/mc L [facility] RDW Standard Deviation 47.8(H) 36.0 - 45.0 fL [facility] RDW coefficient of variation 18.4(H) 11.4 - 13.8 % [facility] Mean Platelet Volume 11.0 7.6 - 12.9 fL [facility] NRBC% auto 0.0 % [facility] NRBC Absolute 0.000 0.000 - 0.000 x10(3)/mc L [facility] Blood 04/08/2024 8:17 AM EDT 04/08/2024 8:38 AM EDT Narrative Resulting Agency Comment Spec In Lab Gary KIM HEMATOLOGY ORDERABLE S Performing Organization Address City/State/[facility] Co de Phone Number [facility] [place] [address] * (ABNORMAL) Differential, Automated (04/08/2024 8:17 AM EDT) Only the most recent of16 resultswithin the time period is included. Neutrophil % 73.9 % [facility] Neutrophil Absolute 7.47(H) 1.70 - 6.10 x10(3)/mc L [facility] Lymph % 17.6 % [facility] Lymphocytes Abs 1.8 0.9 - 3.2 x10(3)/mc L [facility] Monocyte % 4.5 % [facility] Monocyte Abs 0.4 0.3 - 0.9 x10(3)/mc L [facility] Eos % 2.6 % [facility] Eosinophils Abs 0.3 0.0 - 0.4 x10(3)/mc L [facility] Basophil % 1.1 % [facility] Baso Absolute 0.1 0.0 - 0.1 x10(3)/mc L [facility] Immature Gran % 0.30 % [facility] Comment: Immature granulocytes(IG's)percentage and absolute count will include metamyelocytes, myelocytes, and promyelocytes. Blood smears from CBCs yielding IG's will be scanned manually for concordance. If this scan disagrees with the automated IG or if promyelocytes are noted, a manual differential will be performed. Immature Gran Absolute 0.03 0.00 - 0.04 x10(3)/mc L [facility] Blood 04/08/2024 8:17 AM EDT 04/08/2024 8:38 AM EDT Narrative Resulting Agency Comment Spec In Lab Gary KIM HEMATOLOGY ORDERABLE S Performing Organization Address [facility] Co de Phone Number [facility] [place] [address] * POCT Glucose (04/01/2024 12:31 PM EDT) Only the most recent of111 resultswithin the time period is included. Glucose, POC 192 65 - 199 mg/dL [facility] Comment: Supplemental ranges: <140 mg/dL before meals <180 mg/dL all other times of the day Blood 04/01/2024 12:3 1 PM EDT 04/01/2024 12:31 PM EDT Rudi Hernandez MD POINT OF CARE TEST O RDERABLES Performing Organization Address City/[facility]/ZIP Co de Phone Number [facility] [place] [address] * (ABNORMAL) Basic Metabolic Panel (non-fasting) (04/01/2024 4:48 AM EDT) Only the most recent of18 resultswithin the time period is included. Glucose 165 65 - 199 mg/dL [facility] Comment:Diabetes: >=200 mg/d L plus symptoms Blood Urea Nitrogen 10 10 - 20 mg/dL [facility] Creatinine 0.70(L) 0.80 - 1.50 mg/dL [facility] Sodium 137 135 - 145 mmol/L [facility] Potassium 4.8 3.5 - 5.0 mmol/L [facility] Comment: Please note: ??Patients with WBC >100,000 may have falsely elevated Potassium levels. ??For accurate Potassium quantification in these patients send serum separator tube (gold top) for subsequent determinations. ??Contact the Clinical Chemistry Laboratory if there are any questions. Chloride 100 98 - 107 mmol/L [facility] Carbon Dioxide 29 22 - 31 mmol/L [facility] Anion Gap 8 5 - 15 mmol/L [facility] Calcium 8.9 8.5 - 10.5 mg/dL [facility] Est Glomerular Filtration Rate 113 >=60 mL/min/1. 73 m?? [facility] Comment: This patient's estimated GFR was calculated using the 2020 CKD-EPI equation. The estimated GFR can vary from the measured GFR by up to 30% in the absence of rapidly changing kidney function. Assessment of the estimated GFR is not appropriate when creatinine concentrations are rapidly changing. For clinical situations in which a more precise estimate of GFR is necessary, consider alternative methods of GFR estimation such as a 24-hour urine creatinine clearance. Assignment of CKD stage 1-5 for patients with an eGFR near the transition point between stages may be based on clinical assessment of muscle mass and symptoms in addition to eGFR. Blood 04/01/2024 4:48 AM EDT 04/01/2024 5:00 AM EDT Narrative Resulting Agency Comment Spec In Lab Rudi Hernandez MD CHEMISTRY ORDERABLES [facility] [place] [address] * Scan Doc: Telemetry Strips (03/30/2024 11:34 AM EDT) Only the most recent of7 resultswithin the time period is included. Narrative 03/30/2024 11:34 AM EDT Ordered by an unspecified provider. Scanning Provider MEDIA MGR SCAN EXT O RDR/RSLT * Triglyceride (03/29/2024 4:30 AM EDT) Triglyceride 91 mg/dL [facility] Comment: Normal: ?<150 mg/dL Borderline High: 150-199 mg/dL High: ?200-499 mg/dL Very High: ? >uz=182 mg/dL Blood Venous Draw / Unknown 03/29/2024 4:30 AM EDT 03/29/2024 4:36 AM EDT Narrative Resulting Agency Comment Spec In Lab Rudi Hernandez MD CHEMISTRY ORDERABLES Performing Organization Address [facility] Co de Phone Number [facility] [place] [address] * (ABNORMAL) Hepatic Function Panel (03/29/2024 4:30 AM EDT) Protein, Total 5.4(L) 6.1 - 8.0 g/dL [facility] Albumin 2.7(L) 3.2 - 5.2 g/dL [facility] Aspartate Aminotransferase 10 0 - 39 unit/L [facility] Alanine Aminotransferase 8 0 - 55 unit/L [facility] Alkaline Phosphatase 66 40 - 130 unit/L [facility] Bilirubin, Total 0.2 0.2 - 1.3 mg/dL [facility] Bilirubin, Direct 0.1 0.0 - 0.3 mg/dL [facility] Blood Venous Draw / Unknown 03/29/2024 4:30 AM EDT 03/29/2024 4:36 AM EDT Narrative Resulting Agency Comment Spec In Lab Rudi Hernandez MD CHEMISTRY ORDERABLES Performing Organization Address [facility] Co de Phone Number [facility] [place] [address] * Lavender Tube HOLD (03/27/2024 12:14 AM EDT) Pathologist Cristine Johnson Hold Sample in lab. [facility] Blood Venous Draw / Unknown 03/27/2024 12:14 AM EDT 03/27/2024 12:40 AM EDT Chalino Cristina MD HEMATOLOGY ORDERABLE S [facility] [place] [address] * Place PICC Line: Contact Vascular Access Page [phone] Extremity to exclude: No restrictions; Is PICC procedure required PRIOR to patients discharge? Yes (03/26/2024 4:12 PM EDT) Narrative Mary Alice Jacobs RN - 03/26/2024 4:12 PM EDT Mary Alice Jacobs RN ? 03/26/2024 ??4:14 PM PICC/Midline Insertion Procedure Note Indications: TPN, Medication Administration This insertion was not to replace a malfunctioning catheter. This insertion was not due to a suspected line-associated infection. Location of Procedure: X-Ray Room 11 Risks and Benefits: The risks and benefits of this procedure were reviewed and informed consent was obtained. Time Out: Prior to the start of the procedure, the patient's identity, intended procedure, site/side, correct patient positioning and presence of the site cb was confirmed as applicable. The medical history and chart were reviewed to rule out potential contraindications to the planned procedure. Hand Hygiene: The graduate civil engineer did perform hand hygiene prior to line insertion. Catheter type: PICC Lot number: [id number] Procedure Technique: Skin was prepped with chlorhexidine. Skin preparation agent was completely dry at the time of first skin puncture. The following barrier precaution methods were used:large sterile drape, maske/eye shield, large sterile gown, sterile gloves, and cap. 3 ml of 1% Lidocaine was used for skin wheal. Ultrasound was used for guidance. ??Radiographic contrast agent was not injected for vein identification. Procedure Details: Order received for catheter placement. A 5 Fr. triple lumen Bard Power catheter was placed into the right basilic vein over a 0.018 inch guidewire using modified seldinger technique and fluoroscopy. Arm circumference was 39 cm at 2 cm above the insertion site. Final catheter length (with trimming): 45 cm Internal: 44 cm External: 1 cm Tip in CAJ per Dr. Machado. The line was placed over a guidewire. Post Procedure: Diagnosis: Perihepatic abscess Blood return noted on aspiration of line after placement confirmed. 5 mls of normal saline infused free flowing to gravity via PICC after insertion. Sterile dressing applied: CHG Impregnated Tegaderm. Findings: The patient did tolerate the procedure well. No Complications. Procedure Comments: Successful PICC placement. Mary Alice Jacobs RN 03/26/2024 Rudi Hernandez MD PROCEDURE/MINOR SURG ICAL ORDERABLES * XR PICC Placement Over 5 Years with Imaging Guidance (IV Team) (03/26/2024 4:02 PM EDT) Wunsch-Brautkleid Signature WORKSTATION ID [id number] RAD Anatomical Region Laterality Modality N/A Radio Fluoroscop y Impressions 03/26/2024 4:17 PM EDT Satisfactory position of right PICC. I have personally reviewed the image(s) and the resident's interpretation and agree with the findings, Bryan Machado MD at 03/26/2024 4:17 PM Thank you for letting us participate in the care of this patient. ??If you are a health care provider and have any questions regarding this report, please contact the number below. ??For patients who have questions please contact the health caretaker grounds that requested your imaging first. ? Electronically signed by: Bryan Machado MD, [facility] ??([phone]), at 03/26/2024 4:17 PM Narrative 03/26/2024 4:17 PM EDT EXAMINATION: XR PICC PLACEMENT OVER 5 YEARS WITH IMAGING GUIDANCE (IV TEAM) CLINICAL HISTORY: Confirmation of PICC placement TECHNIQUE: C-arm placement of PICC. Limited view of the line tip only. COMPARISON: CT chest 03/24/2024 FINDINGS: Intraprocedural frontal radiograph (final image time stamped 15:18:50) of the mediastinum demonstrates a right PICC , with the catheter tip projected at the superior cavoatrial junction. Procedure Note Bryan Machado MD - 03/26/2024 EXAMINATION: XR PICC PLACEMENT OVER 5 YEARS WITH IMAGING GUIDANCE (IVTEAM) CLINICAL HISTORY: Confirmation of PICC placement TECHNIQUE: C-arm placement of PICC. Limited view of the line tip only. COMPARISON: CT chest 03/24/2024 FINDINGS: Intraprocedural frontal radiograph (final image time [id number]) of the mediastinum demonstrates a right PICC , with the catheter tipprojected at the superior cavoatrial junction. IMPRESSION Satisfactory position of right PICC. I have personally reviewed the image(s) and the resident's interpretationand agree with the findings, Bryan Machado MD at 03/26/2024 4:17 PM Thank you for letting us participate in the care of this patient. If youare a health care provider and have any questions regarding this report,please contact the number below. For patients who have questions please contactthe health caretaker grounds that requested your imaging first. 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 Monitoring and Sedation Details: Due to the painful nature of the procedure, patient received split doses of intravenous fentanyl and versed from the IR nurse while pulse, pressure, end tidal CO2 parameters and oxygen saturation were continuously monitored. Procedure Events and Technique: A standard time-out was conducted just before the start of the procedure to verify all hogan aspects; including the correct patient and planned procedure, procedure location, informed consent, and all relevant critical information, all of which were correct. The patient was positioned supine on the procedure table. ??The epigastrium was cleaned and prepped in typical sterile fashion; maximal sterile barrier technique was used throughout. ?? Initial non-contrast localizing scan obtained, lesion was localized. ??A site for drain placement was chosen and identified on the skin with the assistance of the CT laser lights. ??The skin was marked and local anesthesia provided with 1% lidocaine. ??A 21 ga needle was directed into the collection with CT fluoroscopy. ??An 0.018 guide wire was placed and position within the collection confirmed with CT. ??The tract was upsized with a 4/6-Fr Accu-Stick System. ??An 0.035 guide wire was advanced. ??The access tract was dilated and a 10.2-Fr locking pigtail drainage catheter was advanced. ??Post placement scan showed the catheter within the collection. ??Aspiration was performed. ??The catheter connected to bulb drainage. Medications: Fentanyl 100 mcg IV, Versed 1.5 mg IV, 1% Lidocaine <10 cc subcutaneous. Contrast: None. Estimated Blood Loss: < 5 cc. Complications: ??No immediate. Findings: Air and fluid containing lobulated collection in the operative bed, as on prior CT. Placement of a 10.2-Fr drainage catheter into collection. ??10 cc of saniopurulent fluid aspirated; samples sent for gram stain / culture and body-fluid amylase. ?? Final CT images showed collapse of the collection. Impression: Successful marizol-pancreatic abscess drainage catheter placement. Resident/Fellow: Dr. Gary Palmer. Attending: Dr. Joe Quintero. I, Dr. Quintero, was present throughout the procedure. I was present during the intraservice time as documented by the IR Nurse. ?? Rudi Hernandez MD IMG CT ORDERABLES * (ABNORMAL) Anaerobic Culture (03/25/2024 10:00 AM EDT) Only the most recent of2 resultswithin the time period is included. Anaerobic Culture Many Prevotella buccae(A) [facility] Organism Prevotella buccae(A) [facility] Abdominal Fluid 03/25/2024 1 0:00 AM EDT 03/25/2024 11:30 AM EDT Comment:s/p Whipple w/ po in tolerance, leukocytosis, tachycardia, hypoT - developing abscess (at pancreatic bed - 5x2 cm) Narrative Resulting Agency Comment Spec In Lab Joe Quintero DO MICROBIOLOGY - GENER AL ORDERABLES [facility] [place] [address] * (ABNORMAL) Body Fluid Culture, Aerobic (03/25/2024 10:00 AM EDT) Only the most recent of2 resultswithin the time period is included. Body Fluid Culture Many mixed Gram Negative and Positive organisms including Streptococcus milleri, anginosis group and Rare Yeast (A) [facility] Gram Stain Many Neutrophils seen Many Gram Positive Cocci seen Few Gram Negative Rods seen Few Gram Positive Rods seen (A) [facility] Organism Streptococcus milleri, anginosis group(A) [facility] Organism Yeast(A) [facility] Organism Gram Positive Cocci(A) [facility] Organism Gram Negative Rods(A) [facility] Organism Gram Positive Rods(A) [facility] Abdominal Fluid 03/25/2024 1 0:00 AM EDT 03/25/2024 11:30 AM EDT Comment:s/p Whipple w/ po in tolerance, leukocytosis, tachycardia, hypoT - developing abscess (at pancreatic bed - 5x2 cm) Narrative Resulting Agency Comment Spec In Lab Joe Quintero DO MICROBIOLOGY - GENER AL ORDERABLES Performing Organization Address City/[facility]/ZIP Co de Phone Number [facility] [place] [address] * Lactate, whole blood, [place] [place] [place] (03/25/2024 6:00 AM EDT) Only the most recent of2 resultswithin the time period is included. Pathologist [facility] Lactate WB 1.2 0.5 - 2.2 mmol/L [facility] Blood 03/25/2024 6:00 AM EDT 03/25/2024 6:11 AM EDT Narrative Resulting Agency Comment Spec In Lab Rudi Hernandez MD CHEMISTRY ORDERABLES Performing Organization Address [facility] Co de Phone Number [facility] [place] [address] * (ABNORMAL) Beta Hydroxybutyrate (03/25/2024 4:35 AM EDT) [facility] Beta-hydroxybuturat e 6.30(H) 0.00 - 0.30 mmol/L [facility] Comment: This test has not been cleared by the [place] FDA. Performance characteristics of this test were determined by [facility] in accordance with CLIA requirements. This laboratory is qualified under CLIA to perform high-complexity testing. Blood Venous Draw / Unknown 03/25/2024 4:35 AM EDT 03/25/2024 4:42 AM EDT Narrative Resulting Agency Comment Spec In Lab Rafi Grimaldo MD CHEMISTRY ORDERABLE S Performing Organization Address [facility]/ZIP Co de Phone Number [facility] [place] [address] * Request For 2nd Read CT Abdomen & Pelvis (03/24/2024 7:48 PM EDT) WORKSTATION ID [id number] [facility] Anatomical Region Laterality Modality Abdomen, Pelvis SO Impressions 03/25/2024 9:19 AM EDT 1. ??Status post Whipple. Multiloculated peripancreatic collections in the region of the pancreaticojejunostomy containing fluid and extraluminal air measuring up to 5.4 cm. Differential includes anastomotic leak and/or abscess. 2. ??Pneumobilia with dilated extrahepatic biliary duct with transition point at the anastomosis, possibly due to postsurgical edema. 3. 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 No definite thrombus. 4. ??Skin dehiscence at the proximal laparotomy incision. Thank you for letting us participate in the care of this patient. ??If you are a health care provider and have any questions regarding this report, please contact the number below. ??For patients who have questions please contact the health caretaker grounds that requested your imaging first. ? Narrative 03/25/2024 9:19 AM EDT EXAMINATION: REQUEST FOR 2ND READ CT ABDOMEN AND PELVIS CLINICAL HISTORY: s/p Whipple w/ po intolerance, leukocytosis, tachycardia, hypoT - c/f acute findings, ?fluid collection or abscess; Sending Institution [facility]; Date of exam [id number]; I believe a reinterpretation of this exam may alter care of Patient. Yes TECHNIQUE: CT of the chest, abdomen, and pelvis with contrast performed at outside institution. COMPARISON: CT abdomen pelvis 02/26/2024, CT chest abdomen pelvis 09/23/2022, PET/CT 01/27/2024 FINDINGS: CHEST: THYROID: Normal partially visualized thyroid. CHEST WALL: Normal. LYMPH NODES: No lymphadenopathy. MEDIASTINUM AND LUIS: Normal. HEART: Normal heart size without pericardial effusion. Normal caliber thoracic aorta.] PULMONARY ARTERIES: No filling defects. PLEURA: No effusion. LUNGS AND AIRWAYS: The central airways are patent. No focal lung consolidation. No suspicious lung nodules. ??Lingular and left lower lobe linear platelike atelectasis. ABDOMEN/PELVIS: LIVER: Normal morphology. No focal lesion. SPLEEN: Normal. PANCREAS: Status post Whipple. Pancreatic stent traversing the remnant pancreas, pancreaticojejunostomy and jejunum. Multiloculated peripancreatic collections in the region of the pancreaticojejunostomy demonstrating partial rim enhancement, containing fluid and extraluminal air. The largest collection inferior to the pancreas measures 5.4 x 2.4 cm (series 12 image 35). The largest superior collection in the region of the [place] hepatis measures 4 x 3.6 cm (series 12 image 28). GALLBLADDER/BILIARY TREE: Status post cholecystectomy. Pneumobilia. Dilated extrahepatic biliary duct to 15 mm (series 14 image 39). ADRENALS: Normal. KIDNEYS: Symmetric enhancement. No collecting system dilation, calculus or soft tissue attenuation mass. URINARY BLADDER: Normal. VASCULATURE: Normal caliber abdominal aorta. 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 No definite intraluminal thrombus. LYMPHADENOPATHY: No lymphadenopathy. BOWEL: Status post Whipple. Multiple collections adjacent to the pancreaticojejunostomy as described. Intact gastrojejunostomy. Normal appendix. ABDOMINAL WALL: Skin dehiscence at the proximal laparotomy incision. Small fat-containing umbilical hernia. Postsurgical changes within the anterior abdominal wall. PERITONEUM/RETROPERITONEUM: No peritoneal implant. Fat stranding and collections within the upper abdomen as described. REPRODUCTIVE ORGANS: Normal contours. SKELETAL: No suspicious lesion. Multilevel spondylosis. Chronic bilateral L5 pars defects. Stable lucent lesion with sclerotic rim at the anterior left third rib without aggressive features, not previously FDG avid. Procedure Note Ilana Mirza MD - 03/25/2024 EXAMINATION: REQUEST FOR 2ND READ CT ABDOMEN AND PELVIS CLINICAL HISTORY: s/p Whipple w/ po intolerance, leukocytosis,tachycardia, hypoT - c/f acute findings, ?fluid collection or abscess; [facility]; Date of exam [id number]; I believe a reinterpretation of this exam mayalter care of Patient. Yes TECHNIQUE: CT of the chest, abdomen, and pelvis with contrast performedat outside institution. COMPARISON: CT abdomen pelvis 02/26/2024, CT chest abdomen pelvis09/23/2022, PET/CT 01/27/2024 FINDINGS: CHEST: THYROID: Normal partially visualized thyroid. CHEST WALL: Normal. LYMPH NODES: No lymphadenopathy. MEDIASTINUM AND LUIS: Normal. HEART: Normal heart size without pericardial effusion. Normal caliberthoracic aorta.] PULMONARY ARTERIES: No filling defects. PLEURA: No effusion. LUNGS AND AIRWAYS: The central airways are patent. No focal lungconsolidation. No suspicious lung nodules. Lingular and left lower lobe linearplatelike atelectasis. ABDOMEN/PELVIS: LIVER: Normal morphology. No focal lesion. SPLEEN: Normal. PANCREAS: Status post Whipple. Pancreatic stent traversing the remnantpancreas, pancreaticojejunostomy and jejunum. Multiloculated peripancreaticcollections in the region of the pancreaticojejunostomy demonstrating partial rimenhancement, containing fluid and extraluminal air. The largest collection inferior tothe pancreas measures 5.4 x 2.4 cm (series 12 image 35). The largestsuperior collection in the region of the virginia hepatis measures 4 x 3.6 cm ([id number] image 28). GALLBLADDER/BILIARY TREE: Status post cholecystectomy. Pneumobilia.Dilated extrahepatic biliary duct to 15 mm (series 14 image 39). ADRENALS: Normal. KIDNEYS: Symmetric enhancement. No collecting system dilation, calculus orsoft tissue attenuation mass. URINARY BLADDER: Normal. VASCULATURE: Normal caliber abdominal aorta. Severe narrowing of thecentral portal vein and SMV, possibly due to extrinsic compression from adjacent collections. No definite intraluminal thrombus. LYMPHADENOPATHY: No lymphadenopathy. BOWEL: Status post Whipple. Multiple collections adjacent to the pancreaticojejunostomy as described. Intact gastrojejunostomy. Normalappendix. ABDOMINAL WALL: Skin dehiscence at the proximal laparotomy incision.Small fat-containing umbilical hernia. Postsurgical changes within theanterior abdominal wall. PERITONEUM/RETROPERITONEUM: No peritoneal implant. Fat stranding andcollections within the upper abdomen as described. REPRODUCTIVE ORGANS: Normal contours. SKELETAL: No suspicious lesion. Multilevel spondylosis. Chronic bilateralL5 pars defects. Stable lucent lesion with sclerotic rim at the anterior leftthird rib without aggressive features, not previously FDG avid. IMPRESSION 1. Status post Whipple. Multiloculated peripancreatic collections in theregion of the pancreaticojejunostomy containing fluid and extraluminal airmeasuring up to 5.4 cm. Differential includes anastomotic leak and/or abscess. 2. Pneumobilia with dilated extrahepatic biliary duct with transitionpoint at the anastomosis, possibly due to postsurgical edema. 3. 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 No definite thrombus. 4. Skin dehiscence at the proximal laparotomy incision. Thank you for letting us participate in the care of this patient. If youare a health care provider and have any questions regarding this report,please contact the number below. For patients who have questions please contactthe health caretaker grounds that requested your imaging first. Rudi Hernandez MD IM OUTSIDE INTERPRE TATION ORDERABLES * Film Library- Storage Only CT Chest Abdomen Pelvis (03/24/2024 5:27 PM EDT) Narrative RAD - 03/24/2024 5:27 PM EDT This exam is auto-finalizing. It's purpose is for storage only. Rudi Hernandez MD [facility] FILM LIBRARY ORD ERABLES Performing Organization Address City/[facility]/ZIP Co de Phone Number [place], [place] * Scan, Peripheral Blood (03/08/2024 4:44 AM EDT) Plat estimate Normal [facility] RBC Morphology Abnormal [facility] Hypochromia Slight [facility] Polychromasia Present >5/HPF [facility] Marcy Cells 6-10 /HPF [facility] Blood 03/08/2024 4:44 AM EDT 03/08/2024 5:05 AM EDT Narrative Resulting Agency Comment Spec In Lab Latonia Red MD HEMATOLOGY ORDERABLE [facility] [place] [address] * XR Abdomen Flat & Upright (03/06/2024 5:29 AM EDT) WORKSTATION ID [id number] RAD Anatomical Region Laterality Modality Abdomen N/A Digital Radiogra phy Impressions 03/06/2024 8:15 AM EDT Stomach is incompletely distended with air-fluid level. Ileus. Air-filled few nondilated bowel segments mid abdomen with suspected mural thickening. Thank you for letting us participate in the care of this patient. ??If you are a health care provider and have any questions regarding this report, please contact the number below. ??For patients who have questions please contact the health caretaker grounds that requested your imaging first. ? Narrative 03/06/2024 8:15 AM EDT EXAMINATION: XR ABDOMEN FLAT AND UPRIGHT CLINICAL HISTORY: gastric distension TECHNIQUE: Supine and upright views of the abdomen COMPARISON: Limited abdomen March 02, 2024 FINDINGS: Trace pleural effusions and dependent atelectasis. Epidural catheter tip projected in the midline at the level of T7. Right upper quadrant surgical clips. Subhepatic drain has been withdrawn. Pancreatic stent remains. Midline skin edd. Residual enteric contrast within nondilated large bowel extending to the rectum. Scattered air-fluid levels. Air-filled few nondilated bowel segments mid abdomen with suspected mural thickening. Stomach is incompletely distended with air-fluid level. Procedure Note Jenelle Cervantes MD - 03/06/2024 EXAMINATION: XR ABDOMEN FLAT AND UPRIGHT CLINICAL HISTORY: gastric distension TECHNIQUE: Supine and upright views of the abdomen COMPARISON: Limited abdomen March 02, 2024 FINDINGS: Trace pleural effusions and dependent atelectasis. Epidural catheter tip projected in the midline at the level of T7. Right upper quadrantsurgical clips. Subhepatic drain has been withdrawn. Pancreatic stent remains. Midline skin edd. Residual enteric contrast within nondilated large bowel extending to therectum. Scattered air-fluid levels. Air-filled few nondilated bowel segments midabdomen with suspected mural thickening. Stomach is incompletely distended with air-fluid level. IMPRESSION Stomach is incompletely distended with air-fluid level. Ileus. Air-filled few nondilated bowel segments mid abdomen with suspectedmural thickening. Thank you for letting us participate in the care of this patient. If youare a health care provider and have any questions regarding this report,please contact the number below. For patients who have questions please contactthe health caretaker grounds that requested your imaging first. Rudi Hernandez MD IMG DX ORDERABLES * Sodium, urine, random (03/03/2024 1:19 AM EDT) Sodium, Urine <20 mmol/L [facility] Urine 03/03/2024 1:19 AM EDT 03/03/2024 1:28 AM EDT Narrative Resulting Agency Comment Spec In Lab Rudi Hernandez MD URINE ORDERABLES [facility] [place] [address] * Creatinine, urine, random (03/03/2024 1:19 AM EDT) Creatinine, Urine 288 mg/dL [facility] Urine 03/03/2024 1:19 AM EDT 03/03/2024 1:28 AM EDT Narrative Resulting Agency Comment Spec In Lab Rudi Hernandez MD URINE ORDERABLES Performing Organization Address City/[facility]/ZIP Co de Phone Number [facility] [place] [address] * Green Tube HOLD (03/03/2024 1:04 AM EDT) Green Hold Sample in lab. [facility] Blood Venous Draw / Unknown 03/03/2024 1:04 AM EDT 03/03/2024 1:12 AM EDT Latonia Red MD CHEMISTRY ORDERABLES Performing Organization Address [facility] Co de Phone Number [facility] [place] [address] * XR Abdomen 1 view (Generic) (03/02/2024 9:54 PM EDT) Only the most recent of2 resultswithin the time period is included. WORKSTATION ID [id number] [facility] Anatomical Region Laterality Modality Abdomen N/A Digital Radiogra phy Impressions 03/02/2024 10:20 PM EDT NG tube terminating in the stomach with sidehole just past the GE junction. I have personally reviewed the image(s) and the resident's interpretation and agree with the findings, Maryan Lagos MD at 03/02/2024 10:20 PM Thank you for letting us participate in the care of this patient. ??If you are a health care provider and have any questions regarding this report, please contact the number below. ??For patients who have questions please contact the health caretaker grounds that requested your imaging first. ? Narrative 03/02/2024 10:20 PM EDT EXAMINATION: XR ABDOMEN 1 VIEW (GENERIC) CLINICAL HISTORY: NGT advanced ~10 cm, ?placement TECHNIQUE: AP abdomen. COMPARISON: Abdominal radiograph 03/02/2024. FINDINGS: Enteric tube extends below the diaphragm with tip within the body of the stomach and sidehole just past the GE junction. Epidural catheter terminates in the mid thoracic spine at the level of T7-T8 disc space. Small amount of air in the abdomen. Small pockets of air and stool in the visualized upper abdomen. Partially imaged cutaneous edd to the left of the midline. Cholecystectomy clips. Procedure Note Maryan Lagos MD - 03/02/2024 EXAMINATION: XR ABDOMEN 1 VIEW (GENERIC) CLINICAL HISTORY: NGT advanced ~10 cm, ?placement TECHNIQUE: AP abdomen. COMPARISON: Abdominal radiograph 03/02/2024. FINDINGS: Enteric tube extends below the diaphragm with tip within the body of thestomach and sidehole just past the GE junction. Epidural catheter terminates inthe mid thoracic spine at the level of T7-T8 disc space. Small amount of air in the abdomen. Small pockets of air and stool inthe visualized upper abdomen. Partially imaged cutaneous edd to the leftof the midline. Cholecystectomy clips. IMPRESSION NG tube terminating in the stomach with sidehole just past the GEjunction. I have personally reviewed the image(s) and the resident's interpretationand agree with the findings, Maryan Lagos MD at 03/02/2024 10:20 PM Thank you for letting us participate in the care of this patient. If youare a health care provider and have any questions regarding this report,please contact the number below. For patients who have questions please contactthe health caretaker grounds that requested your imaging first. Rudi Hernandez MD IMG DX ORDERABLES * (ABNORMAL) Aspartate Aminotransferase (03/02/2024 5:27 AM EDT) Aspartate Aminotransferase 89(H) 0 - 39 unit/L [facility] Blood 03/02/2024 5:27 AM EDT 03/02/2024 6:06 AM EDT Narrative Resulting Agency Comment Spec In Lab Rudi Hernandez MD CHEMISTRY ORDERABLES Performing Organization Address [facility] Co de Phone Number [facility] [place] [address] * (ABNORMAL) Hemoglobin A1c (03/02/2024 4:30 AM EDT) Hemoglobin A1c 8.9(H) 4.3 - 5.6 % [facility] Comment: Reference Range: 4.3 - 5.6% 5.7 - 6.4% - Increased Risk of Developing Diabetes Mellitus >= 6.5% - Consistent with diagnosis of Diabetes Mellitus In the absence of hyperglycemia (i.e. plasma glucose > 200 mg/dL) or classic symptoms of hyperglycemia a repeat measurement of HbA1c should be performed on a separate sample to confirm the diagnosis. Diagnosis and Classification of Diabetes Mellitus, Diabetes Care 2013; 36: Suppl. 1, D47-44 Estimated Average Glucose 208 mg/dL [facility] Blood Venous Draw / Unknown 03/02/2024 4:30 AM EDT 03/02/2024 1:54 PM EDT Narrative Resulting Agency Comment Spec In Lab Munira Berry APRN CHEMISTRY ORDERABLES Performing Organization Address [facility] Co de Phone Number [facility] [place] [address] * (ABNORMAL) BLOOD GAS 2 ARTERIAL (03/01/2024 5:49 PM EDT) Only the most recent of4 resultswithin the time period is included. pH, Arterial 7.40 7.35 - 7.45 [facility] PCO2, Arterial 35 35 - 45 mmHg [facility] PO2, Arterial 188(H) 85 - 104 mmHg [facility] Bicarbonate, Arterial 21.3 20.0 - 26.0 mmol/L [facility] Base Excess, Arterial -3.6(L) -3.0 - 3.0 mmol/L [facility] Hgb Blood Gas 14.6 13.7 - 16.5 g/dL [facility] Oxyhemoglobin, Arterial 97.8(H) 94.0 - 97.0 % [facility] Carboxyhemoglob in, Arterial 1.3 % [facility] Comment: Nonsmokers: 0.5-1.5% COHB Smokers: Variable, but usually less than 10% Toxic: 20-30% COHB Lethal: Greater than 60% COHB Methemoglobin, Arterial 0.3 <=1.5 % [facility] Na Whole Blood 131(L) 135 - 145 mmol/L [facility] K Whole Blood 4.3 3.5 - 5.0 mmol/L [facility] Comment: Please note: Patients with WBC >100,000 may have falsely elevated Potassium levels. Contact the Clinical Chemistry Laboratory if there are any questions. ICa Whole Blood 1.12(L) 1.15 - 1.33 mmol/L [facility] Comment: Note: ??Total bilirubin higher than 20 mg/dL may lead to falsely low ionized calcium. CL Whole Blood 102 98 - 107 mmol/L [facility] Gluc Whole Bld 162 65 - 199 mg/dL [facility] Comment:Diabetes: >=200 mg/d L plus symptoms. Lactate WB 2.2 0.5 - 2.2 mmol/L [facility] Blood 03/01/2024 5:49 PM EDT 03/01/2024 5:49 PM EDT Rudi Hernandez MD POINT OF CARE TEST O RDERABLES [facility] [place] [address] * Specimen to Pathology (03/01/2024 3:40 PM EDT) Only the most recent of4 resultswithin the time period is included. AP Specimen 03/01/2024 3:40 PM EDT 03/01/2024 3:40 PM EDT Narrative [facility] - 03/01/2024 3:40 PM EDT Specimen requisition ordered. ??Separate Pathology report to follow Rudi Hernandez MD PATHOLOGY/CYTOLOGY O RDERABLES [facility] [place] [address] * Surgical Pathology Report (03/01/2024 10:49 AM EDT) Final Diagnosis [id number] ? Location: L4WD; 0404; B The signing pathologist has (i) examined the relevant preparation(s) for the specimen(s) and (ii) rendered or confirmed the diagnosis(es). . ?Surgical Pathology DIAGNOSIS A - Common marina duct lymph node, excision: - Two lymph nodes negative for carcinoma. B - Head of pancreas, duodenum, bile duct and antrum, excision: - Adenocarcinoma of the duodenum, poorly differentiated. - Tumor stage summary:pT3 N1 (see synoptic report). C - Common hepatic artery lymph node, excision: - ??One lymph node, negative for malignancy D - Common hepatic artery lymph node #2, excision: - ??One lymph node, negative for malignancy Electronically signed by: ?China KAUFMAN, Luis Verified: ??03/10/2024 16:41 ??Pathologist Performed at: ??-[facility] [place], [place] [address] Coning Machine Operator: Lee Sutton MD, AP, ??CLIA Certificate: [id number] SYNOPTIC Specimen ? Procedure: ??Pancreaticoduodene ctomy (Whipple resection) Tumor ? Tumor Site: ??Duodenum ? Histologic Type: ??Adenocarcinoma (not otherwise characterized) ? Histologic Grade: ??G3, poorly differentiated ? Tumor Size: ??2.3 Centimeters (cm) ? Tumor Extent: ??Invades through muscularis propria into subserosa, or extends ?into nonperitonealized perimuscular tissue (mesentery or retroperitoneum) ?without serosal penetration ? Macroscopic Tumor Perforation: ??Not identified ? Lymphovascular Invasion: ??Not identified Margins ? Margin Status for Invasive Carcinoma: ??All margins negative for invasive ?carcinoma ?Closest Margin(s) to Invasive Carcinoma: ??Posterior ?Distance from Invasive Carcinoma to Closest Margin: ??3.5 cm ? Margin Status for Dysplasia: ??All margins negative for carcinoma in situ ?(high-grade dysplasia) / adenoma Regional Lymph Nodes ? Regional Lymph Node Status: ??Tumor present in regional lymph node(s) ?Number of Lymph Nodes with Tumor: ??2 ? Number of Lymph Nodes Examined: ??24 Pathologic Stage Classification (pTNM, AJCC 8th Edition) ? pT Category: ??pT3 ? pN Category: ??pN1 ? [facility] 2021 Q1 Release ADDITIONAL STUDIES Whole slide scan: B3, B11, B25 SPECIMEN(S) SUBMITTED A - Common marina duct lymph node, excision (1) . SPECIMEN(S) SUBMITTED B - Head of pancreas, duodenum, bile duct and antrum, excision (1) C - Common hepatic artery lymph node, excision (1) D - Common hepatic artery lymph node #2, excision (1) CLINICAL INFORMATION Duodenum adenocarcinoma SPECIMEN PROCESSING A - Labeled/Fixative: Common bile duct lymph node, fresh. Quantity/Size: Two, 1.3 x 0.5 x 0.5 and 1.8 x 0.9 x 0.6 cm. Tissue Description: Shi-pink lymph nodes Sections/Processing: Entirely submitted in 3 cassettes as follows: ?A1-A2: ??Single serially sectioned lymph node ?A3: ??Single intact candidate lymph node B - Labeled/Fixative: Head of pancreas, duodenum, bile duct and antrum, fresh. SPECIMEN DESCRIPTION Resection Specimen: Whipple resection consisting of the head of pancreas, duodenum, distal stomach and attached soft tissue. Integrity: Intact Orientation: Received oriented with the pancreatic neck margin inked yellow, vascular groove margin inked blue, SMA margin inked orange and bile duct margin inked green. Overall Size: 39 x 14 x 8.5 cm LESION ??Location: Duodenum, adjacent to the ampulla of Vater ??Size: 2.3 x 2.1 x 1.1 cm ??Description: Red-hsi, ulcerated lesion with raised borders ??Relationship to pancreatic duct: Uninvolved ??Relationship to common bile duct: Uninvolved ??Extension: Lesion involves duodenal wall. ??Margins: ?? -6.2 cm from gastric margin. ?? -24 cm from duodenal margin. ?? -4.8 cm from pancreatic neck margin. ?? -5.7 cm from common bile duct margin. ?? -4.1 cm from vascular groove margin. ?? -5 cm from uncinate margin. ?? -3.8 cm from posterior margin. PANCREAS Size: 6.6 x 6.3 x 2.2 cm Parenchyma: Shi-pink, rubbery and lobulated Ducts: The common bile duct ranges from 0.1 to 0.5 cm in diameter. ??The pancreatic duct averages 0.2 cm in diameter STOMACH ??Greater Curvature: 9.3 cm ??Lesser Curvature: 4.2 cm ??Serosa: Shi-pink, glistening ??Mucosa: Shi-pink with normal rugal folds DUODENUM ??Length/Diameter: 35.5 x 2.8 cm ??Serosa: Red-shi, smooth and glistening ??Mucosa: The mucosa surrounding the ampulla of Vater has irregular appearing folds. The remaining mucosa is shi-pink with normal folds ??Ampulla of Vater: Located 3 cm from the lesion and occurs at the confluence of the pancreatic and common bile ducts. OTHER Lymph nodes: Multiple lymph nodes are identified. Ink Designation: The posterior retroperitoneal margin is inked black. The anterior serosal surface is inked red. . SPECIMEN PROCESSING Sections/Processing: Tracer Lathe Set Up Operator sections in 41 cassettes as follows: ?B1: ??Proximal stomach margin ?B2: ??Distal duodenal margin ?B3: ??Bile duct margin en face ?B4-B5: ??Pancreatic neck margin en face, bisected ?B6-B14: ??Lesion, entirely submitted full-thickness to include area of deepest ? invasion in B11-B14 (anterior serosal surface inked red) ?B15-B16: ??Ampulla of Vater ?B17: ??Nearest vascular groove and SMA margins ?B18-B19: ??Nearest posterior margin with single lymph node, bisected ?B20: ??Single bisected peripancreatic lymph node ?B21: ??Single trisected candidate lymph node surrounding common bile duct ?B22: ??Single bisected candidate peripancreatic lymph node ?B23: ??Single trisected peripancreatic lymph node ?B24-B25: ??Single quadrisected peripancreatic lymph node ?B26-B27: ??Single serially sectioned peripancreatic lymph node ?B28: ??Single bisected peripancreatic lymph node ?B29-B30: ??Single serially sectioned peripancreatic lymph node ?B31-B34: ??Single serially sectioned peripancreatic lymph node ?B35-B36: ??5 intact candidate peripancreatic lymph nodes ?B37: ??Single bisected candidate perigastric lymph node ?B38: ??Single bisected candidate perigastric lymph node ?B39: ??Single bisected candidate perigastric lymph node ?B40: ??Single intact candidate perigastric lymph node ?B41: Single bisected peripancreatic lymph node C - Labeled/Fixative: Common hepatic artery lymph node, fresh. Quantity/Size: Two, 1.7 x 1.2 x 0.5 and 2.2 x 1.5 x 1.0 cm. Tissue Description: Adipose tissue with one, up to 1.4 x 1.0 x 0.7 cm. Sections/Processing: Tracer Lathe Set Up Operator sections to include the entire lymph node are submitted in 1 cassettes as follows: ?C1: ??Single quadrisected lymph node D - Labeled/Fixative: Common hepatic artery lymph node #2, fresh. Quantity/Size: Single, 1.2 x 1.2 x 0.7 cm. Tissue Description: Shi-pink lymph node with minimal attached adipose tissue Sections/Processing: Quadrisected and entirely submitted in 2 cassettes labeled D1-D2. ??jnr 03/10/2024 4:41 PM EDT [facility] LYMPH NODE SPECIMEN / Unknown 03/01/2024 10:49 AM EDT 03/01/2024 10:49 AM EDT PANCREATIC STRUCTURE / Unknown 03/01/2024 10:49 AM EDT 03/01/2024 10:49 AM EDT LYMPH NODE SPECIMEN / Unknown 03/01/2024 10:49 AM EDT 03/01/2024 10:49 AM EDT LYMPH NODE SPECIMEN / Unknown 03/01/2024 10:49 AM EDT 03/01/2024 10:49 AM EDT Rudi Hernandez MD PATHOLOGY/CYTOLOGY O RDERABLES [facility] [place] [address] * Type and Screen Validity (03/01/2024 9:31 AM EDT) T&S only valid at [facility] [facility] Comment:This Type and Screen result is only valid at the [facility] Blood 03/01/2024 9:31 AM EDT 03/01/2024 9:31 AM EDT Narrative Resulting Agency Comment Spec In Lab Rudi Hernandez MD BLOOD BANK LAB ORDER DEDRA [facility] [place] [address] * ABORH Recheck Status (03/01/2024 9:31 AM EDT) ABORH Recheck Order Order Placed [facility] ABORH Type Recheck Completed [facility] Blood 03/01/2024 9:31 AM EDT 03/01/2024 9:31 AM EDT Narrative Resulting Agency Comment Spec In Lab Rudi Hernandez MD BLOOD BANK LAB ORDER DEDRA Performing Organization Address City/[facility]/ZIP Co de Phone Number [facility] [place] [address] * Type and screen ([facility]FABIOLA) (03/01/2024 9:31 AM EDT) ABORH Type A POSITIVE [facility] Patient BB History Not Found [facility] Expires at [id number] on: 03/04/2024 [facility] Ab Screen Interp Negative [facility] Blood 03/01/2024 9:31 AM EDT 03/01/2024 9:31 AM EDT Narrative [facility] - 03/01/2024 9:31 AM EDT This Type and Screen result is only valid at the [facility] Resulting Agency Comment Spec In Lab Rudi Hernandez MD BLOOD BANK LAB ORDER DEDRA Performing Organization Address City/[facility]/ZIP Co de Phone Number [facility] [place] [address] * XR Fluoro No Rad <1Hr - OR Use (03/01/2024 7:45 AM EDT) Narrative Dicom, Auditing User - 03/01/2024 7:45 AM EDT This exam is auto-finalizing. No interpretation was done. Shyla Bird MD IMMer IVEY * [id number] ONLY (03/01/2024 7:21 AM EDT) Narrative Shyla Bird MD - 03/01/2024 7:21 AM EDT Shyla Bird MD ? 03/01/2024 10:14 AM Procedure: ?? Neuraxial Block Post-op Pain Control Post-op pain management at the request of surgeon. Type: Epidural The patient was greeted. The sedation plan, its benefits, risks and alternatives were discussed with the patient. ??The patient has consented to the procedure. ??The medical history and chart were reviewed. ??The timeout was performed. Start time: 03/01/2024 7:21 AM End time: 03/01/2024 7:39 AM Patient Location: Operating Room Patient Prep Position: Prone Prep: Hand Hygiene, Hat, Mask, Sterile Gloves, Gown, Chlorhexidine and Patient Draped Injection technique: continuous Skin Anesthetic Lidocaine 1% ??2 ml Procedure Technique Level of needle insertion: T12-L1 Needle approach: paramedian Needle Type: Randyohy Gauge: 17 Needle length: 3.5 in Needle insertion depth when PERLA achieved: 7.5 cm Technique for Loss of Resistance: PERLA saline A 19 guage catheter introduced into the space. Catheter at skin depth: 15 cm Dressing/Secured with: Chlorhexidine Tegaderm and Tegaderm Number of attempts: 1 Medications: Date/Time: ??03/01/2024 7:21 AM Events/Notes Imaging: ??fluoroscopy guided and epidurogram obtained Level of Epidural Tip via Fluoroscopy: T8-9 Iohexol 300 mgI/mL, 2 mL Performed by: ?? Resident/WORKERS COMPENSATION COORDINATOR: ? Juan Michelle MD ?? Attending Physician: ? Shyla Bird MD Authorized by: Shyla Bird MD ?? ~~~~~~~~~~~~~~~~~~~~~~~~~~~~~~~~~~~~~~~~~~~~~~~~~~~~~~~~~~~~ Shyla Bird MD EARTH SCIENCE TEACHER CHG S * (ABNORMAL) Creatinine (03/01/2024 7:04 AM EDT) Creatinine 0.77(L) 0.80 - 1.50 mg/dL [facility] Est Glomerular Filtration Rate 110 >=60 mL/min/1. 73 m?? [facility] Comment: This patient's estimated GFR was calculated using the 2020 CKD-EPI equation. The estimated GFR can vary from the measured GFR by up to 30% in the absence of rapidly changing kidney function. Assessment of the estimated GFR is not appropriate when creatinine concentrations are rapidly changing. For clinical situations in which a more precise estimate of GFR is necessary, consider alternative methods of GFR estimation such as a 24-hour urine creatinine clearance. Assignment of CKD stage 1-5 for patients with an eGFR near the transition point between stages may be based on clinical assessment of muscle mass and symptoms in addition to eGFR. Blood 03/01/2024 7:04 AM EDT 03/01/2024 7:16 AM EDT Narrative Resulting Agency Comment Spec In Lab Rudi Hernandez MD CHEMISTRY ORDERABLES Performing Organization Address City/[facility]/ZIP Co de Phone Number [facility] [place] [address] * Film Library- Storage Only CT Abdomen & Pelvis (02/26/2024 2:34 PM EDT) Narrative ITA - 02/26/2024 2:34 PM EDT This exam is auto-finalizing. It's purpose is for storage only. Rudi Hernandez MD IMG FILM LIBRARY ORD ERABLES Performing Organization Address City/[facility]/ZIP Co de Phone Number [place], [place] * Scan Doc: CT Scan (02/26/2024 12:00 AM EDT) Only the most recent of2 resultswithin the time period is included. Anatomical Region Laterality Modality Other Narrative 02/26/2024 12:00 AM EDT Ordered by an unspecified provider. Scanning Provider MEDIA MGR SCAN EXT O RDR/RSLT * Hepatitis C Antibody (12/25/2022 11:50 AM EDT) Hepatitis C Antibody Negative Negative [facility] Blood 12/25/2022 11:5 0 AM EDT 12/25/2022 12:13 PM EDT Narrative Resulting Agency Comment Spec In Lab Eugenia Golden Barrera SIGNAL WORKER CHEMISTRY ORDERABL ES [facility] [place] [address] from Last 3 Months or Most Recently Relevant to Health Maintenance Advance Directives * Attempt Cardiopulmonary Resuscitation - Inpatient (Latest Code Status on File) Date Activated Date Inactivated Comments 05/05/2024 9:10 AM 05/06/2024 4:40 AM Question Answer Comments Code Status decision made by: Patient Content of discussion: Full` * Attempt Cardiopulmonary Resuscitation - Inpatient Date Activated Date Inactivated Comments 04/26/2024 9:42 AM 04/27/2024 4:34 AM Question Answer Comments Code Status decision made by: Patient Content of discussion: full code * Attempt Cardiopulmonary Resuscitation - Inpatient Date Activated Date Inactivated Comments 04/21/2024 8:40 AM 04/22/2024 4:34 AM Question Answer Comments Code Status decision made by: Patient Content of discussion: Full code * Attempt Cardiopulmonary Resuscitation - Inpatient Date Activated Date Inactivated Comments 04/08/2024 9:13 AM 04/09/2024 4:40 AM Question Answer Comments Code Status decision made by: Patient Content of discussion: FULL CODE * Attempt Cardiopulmonary Resuscitation - Inpatient Date Activated Date Inactivated Comments 03/25/2024 9:43 AM 04/01/2024 5:29 PM Question Answer Comments Code Status decision made by: Patient Content of discussion: request for full code Care Teams Landscaping Crew Leader Relationship Specialty Start Date End Date Olga Hoffman, YOCASTA [address] [place] [address] PCP - General Family Medicine 10/30/22
--- OUTSIDE RECORDS SUMMARY | 2024-05-21 01:07 | XMS_ITS | Encounter Summary ---
Author Organization [facility] Address [facility] [place] [address] Care Team Providers Care Patient Safety Manager Name Role Phone Olga Hoffman APRN Primary Care Provider [phone] Encounter Details Date Type Department Care Team (Latest Contact Info) Description 05/07/2024 Travel Social History Tobacco Use Types Packs/Day Years Used Date Smoking Tobacco: Never Smokeless Tobacco: Never Alcohol Use Standard Drinks/Week Comments Not Currently 0 (1 standard drink = 0.6 oz pur e alcohol) [facility] Utilities Answer Date Recorded In the [...] any time in the past 12 m [facility], were you homeless or living in a [...] 9:00 AM EDT Office [place] [address] Nighat López MD [facility] [place] [address] 05/28/2024 8:00 AM EDT Office Visit Hematology/Oncology at [address] [phone] Rodriguez Fowler MD [facility] [place] [address] Sherry Cedillo APRN [address] [place] [address] [place] [address] 05/28/2024 8:30 AM EDT Infusion Hematology Oncology at [address] [phone] 05/28/2024 9:30 AM EDT Clinical Support Hematology/Oncology at [address] [phone] Leah Rose, RD [facility] DR [place]Y [place] [address] documented as of this encounter Visit Diagnoses Not on filedocumented in this encounter Care Teams Patient Safety Manager Relationship Specialty Start Date End Date Olga Hoffman APRN [address] [place] [address] PCP - General Family Medicine 10/30/22 documented as of this encounter
--- OUTSIDE RECORDS SUMMARY | 2024-05-21 01:07 | XMS_ITS | Encounter Summary ---
Author Organization [facility] Address [facility] [place] [address] Care Team Providers Care Cardiology Clinical Consultant Name Role Phone Olga Hoffman APRN Primary Care Provider [phone] Encounter Details Date Type Department Care Team (Late st Contact Info) Description 05/20/2024 9:00 AM EDT Office [place] [address] Rudi Hernandez MD [facility] [place] [address] H/O Whipple procedure Social History Tobacco Use Types Packs/Day Years Used Date Smoking Tobacco: Never Smokeless Tobacco: Never Alcohol Use Standard Drinks/Week Comments Not Currently 0 (1 standard drink = 0.6 oz pur e alcohol) [facility] Utilities Answer Date Recorded In the past 12 months has [employer], gas, oil, or water [employer] threatened to shut off services in your [...] place to sleep or slept in a long-term (including now)? No 01/23/2023 Housing Stability Vital [...] in the past 12 m [facility], were you homeless or living in a long-term (including now)? No 03/25/2024 DH IPV Inpatient [...] 05/20/2024 8 :53 AM EDT Respiratory Rate - - Oxygen Saturation 98% 05/20/2024 8:5 3 AM EDT Inhaled Oxygen Concentration - - Weight 120.2 kg (264 lb 14. 4 oz) 05/20/2024 8:53 AM EDT Height 188 cm (6' 2.02) 05/20/2024 8:5 3 AM EDT Body Mass Index 34 05/20/2024 8:53 AM EDT documented in this encounter Progress Notes * Rudi Hernandez MD - 05/20/2024 9:00 AM EDT Department of General Surgery Surgical Oncology [...] Nick is now 2 weeks postop from [place]. He has been home for over a [...] eat, he has resumed eating some traditional [place] foods and has no abdominal pain with that. Is moving his bowels. His drain output is clear and per Edu and hispartner Claritza she still reports kind of 202 50-300 output daily. He has stopped his antibiotics does not have any fevers or chills. Clinic 05/12/24: The drain output is completely clear. However he is back to work, tolerating a dietand moving his bowels. I discussed with him [...] be admitted and we would do TPN, octreotidein an effort to get the drain output to decrease so that we could take it out. Physical Exam: Vital Signs Temp: 36.6 ??C (97.9 ??F) Temp src: Temporal Heart Rate: 87 BP: (!) 140/98 (MD notified) Patient Position: Sitting SpO2: 98 % General: NAD, pleasant, conversant HEENT: NCAT Pulm: non labored breathing Abd: soft, nontender, nondistended. Drain in place with minimal output in gravity bag skin: warm, dry Ext: no cyanosis, cap refill <2sec Neuro: grossly intact, nonfocal Assessment and Plan: Charles Nick is a 48-year-old gentleman with a history of duodenal adenocarcinoma status post Whipple. His recovery was been complicated by an abscess/pancreatic leak. He had an IR drain. Over the last week his output has decreased, he reports 25cc out yesterday and 20cc out the day prior. He cont inues to feel well, denies fever chills, is working, has an appetite, is moving his bowels. I removed his pigtail in clinic and applied a guaze dressing over it. We discussed that with the output being low he should be okay, but in the event that he develop fevers, chills, lethargy, abdominal pain etc, then he should call me, we would get labs and a repeat scan in that setting. Otherwise, he can start his chemo TESSA. I will see him back in a few months. Please excuse any typographical and/or grammatical errors, dragon dictation was used to complete this note. Rudi Hernandez MD, MS Surgical Oncology 05/20/2024 9:29 AM documented in this encounter Plan of Treatment Upcoming Encounters Date Type Department Care Team (Late st Contact Info) Description 05/21/2024 9:00 AM EDT Office [place] [address] Nighat López MD [facility] DR [place] [address] 05/28/2024 8:00 AM EDT Office Visit Hematology/Oncology at [address] [phone] Rodriguez Fowler MD [facility] [place] [address] Sherry Cedillo APRN [address] [place] [address] DR HEMATOLOGY AND ONCOLOGY [place], [place] [address] 05/28/2024 8:30 AM EDT Infusion Hematology Oncology at [address] [phone] 05/28/2024 9:30 AM EDT Clinical Support Hematology/Oncology at [address] [phone] [facility] DR HEMATOLOGY [place] [address] documented as of this encounter Visit Diagnoses Diagnosis H/O Whipple procedure documented in this encounter Care Teams Cardiology Clinical Consultant Relationship Specialty Start Date End Date Olga Hoffman APRN [address] [place] [address] PCP - General Family Medicine 10/30/22 documented as of this encounter
--- OUTSIDE RECORDS SUMMARY | 2024-05-21 01:08 | XMS_ITS | Encounter Summary ---
Author Organization [facility] Address [facility] [place] [address] Care Team Providers Care Tank Crewmember Name Role Phone DaltonAbigail choihryn Arabella RUST Primary Care Provider [phone] Encounter Details Date Type Department Care Team (Late st Contact Info) Description 04/20/2024 [place] [phone] Latonia Oscar PA [facility] INTERVENTIONAL [place] [address] Social History Tobacco Use Types Packs/Day Years Used Date Smoking Tobacco: Never Smokeless Tobacco: Never Alcohol Use Standard Drinks/Week Comments Not Currently 0 (1 standard drink = 0.6 oz pur e alcohol) [facility] Utilities Answer Date Recorded In the past 12 months has [facility] [employer], gas, oil, or water [employer] threatened to shut off services in your [...] place to sleep or slept in a penitentiary (including now)? No 01/23/2023 Housing Stability Vital Sign Answer Alexander e Recorded In the last 12 months, was t here a time when you were not able to pay the mortgage or rent on time? No 03/25/2024 In the past 12 months, how m any times have you moved where you were living? 0 03/25/2024 At any time in the past 12 m [facility], were you homeless or living in a penitentiary (including now)? No 03/25/2024 IPV Inpatient Questions [...] on file documented as of this encounter H&P Notes * Latonia Oscar PA - 04/20/2024 12:14 PM EDT Images from the original note were not included. Interventional Radiology Focused Pre-procedure H&P: PCP: Olga Hoffman APRN Referring Provider: No ref. provider found Planned procedure: Mediport implant - single lumen Procedure indication: Duodenal adenocarcinoma, need for long-term durable venous access for systemic chemotherapy IR workflow: Procedure request received through Interventional Radiology eDH order queue. There are no answered order specific questions. History of Present Illness: Per chart review, Charles Nick is a 48 y.o. male with PMH of duodenaladenocarcinoma s/p Whipple (c/b abscess in operative bed with indwelling IR drain in place as of 04/20) who presents to Interventional Radiology to undergo Mediport implant. First infusion is not yet scheduled. Remainder of patient's medical and surgical history, allergies, medications, and social/family history obtained below as previously outlined in patient's medical record. IR History: Date/Procedure Meds Given/Comments 01/07/23 Liver Bx Fentanyl 100 mcg IV, Versed 2 mg IV; tolerated procedure well. 03/25/24 Peripancreatic drain IV Fentanyl 100mcg, IV Versed 1.5mg 04/08/24 IR Drain Check/Change/Remove - No Intervention Local Anticoagulation/Antiplatelet: None listed Labs: Lab Results Component Value Date HGB 14.0 04/08/2024 HCT 45.1 04/08/2024 WBC 10.1 (H) 04/08/2024 PLATELET 248 04/08/2024 INR 1.1 12/25/2022 BUN 3 (L) 04/08/2024 CREATININE 0.97 04/08/2024 ALBUMIN 3.6 04/08/2024 BILIDIR 0.1 03/29/2024 BILITOT 0.3 04/08/2024 AST 26 04/08/2024 ALT 30 04/08/2024 ALKPHOS 105 04/08/2024 Allergies: Penicillins Imaging: CT chest 03/24/24 Assessment: 48 y.o. male with duodenal CA presenting to Interventional Radiology for chest port implant. Plan Planned procedure: Mediport implant - single lumen [...] Current Outpatient Medications on File Prior to Visit Medication Sig Dispense Refill mgpetw-rgrcsxef-rhcruse (Zenpep) 40,000-126,000- 168,[address] capsule Take 3 capsules by mouth 3times daily. Take three capsules with meals and 1 capsule with snacks 400 capsule 3 levoFLOXacin (Levaquin) 750 mg tablet Take 1 tablet by mouth daily for 14 days. 14 tablet 0 metroNIDAZOLE (Flagyl) 500 mg tablet Take 1 tablet by mouth 2 times daily for 14 days. 28 tablet 0 fluconazole (Diflucan) 200 mg tablet Take 3 tablets by mouth daily for 14 days. 42 tablet 0 insulin glargine-yfgn (Semglee) 100 unit/mL Solution Inject [...] 2 times daily. 30 tablet 0 Insulin Marion, Disposable, (BD Ultra-Fine Micro Pen Needle) 32 gauge x 1/4 Needle 1 each by Misc.(Non-Drug; Combo Route) route 2 times daily. 300 [...] current facility-administered medications on file prior to visit. 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 Perihepatic abscess K65.0 Severe protein-calorie malnutrition E43 Past Medical History: Diagnosis Date CKD (chronic kidney disease) stage 3, GFR 30-59 ml/min 01/31/2011 Obesity 01/31/2011 Past Surgical History: Procedure Laterality Date CT GUIDED DRAIN PANCREATIC/PERIPANCREATIC 03/25/2024 CT Guided Drain Pancreatic/Peripancreatic Joe Quintero, [facility] RAD CT SCAN IR BIOPSY LIVER PERCUTANEOUS - NON-FOCAL PARENCHYMA 01/07/2023 IR Biopsy Liver Percutaneous 01/07/2023 Juan Wright MD [facility] INTERVENTIONL RAD IR DRAIN CHECK/CHANGE/REMOVE 04/08/2024 IR Drain Check/Change/Remove 04/08/2024 Juan Wright MD [facility] INTERVENTIONL RAD PRO PART REMV PANC, PROX+REMV DUOD+ANAST N/A 03/01/2024 @WHIPPLE PROCEDURE (WRVU 52.84) performed by Rudi Hernandez MD at [facility] MAIN OR PRO TRANSFER SKIN PEDICLE FLAP N/A 03/01/2024 TRANSFER, INTERMEDIATE, ANY PEDICLE FLAP, ANY LOCATION (WRVU 4.77) performed by Rudi Hernandez MD at [facility] MAIN OR Social History and Habits: Social [...] assessed in IR the day of procedure) 04/20/2024 Latonia Oscar PA-C documented in this encounter Plan of Treatment Upcoming Encounters Date Type Department Care Team (Late st Contact Info) Description 05/21/2024 9:00 AM EDT Office [place] [address] Nighat López MD [facility] ENDOCRINOLOG[place] [address] 05/28/2024 8:00 AM EDT Office Visit Hematology/Oncology at [address] [phone] Rodriguez Fowler MD [facility] [place] [address] Sherry Cedillo APRN [address] [place] [address] DR HEMATOLOGY AND ONCOLOGY [place], [place] [phone] 05/28/2024 8:30 AM EDT Infusion Hematology Oncology at [address] [phone] 05/28/2024 9:30 AM EDT Clinical Support Hematology/Oncology at [address] [phone] [facility] DR HEMATOLOGY [place] [address] documented as of this encounter Visit Diagnoses Not on filedocumented in this encounter Care Teams Tank Crewmember Relationship Specialty Start Date End Date Olga Hoffman APRN [address] [place] [address] PCP - General Family Medicine 10/30/22 documented as of this encounter
--- OUTSIDE RECORDS SUMMARY | 2024-05-21 01:08 | XMS_ITS | Encounter Summary ---
Author Organization [facility] Address [facility] [place] [address] Care Team Providers Care Electrical Line Worker Name Role Phone Olga Hoffman APRN Primary Care Provider [phone] Encounter Details Date Type Department Care Team (Late st Contact Info) Description 04/28/2024 Notes Only Hematology [place] [phone] Alo Calhoun, [facility] Social History Tobacco Use Types Packs/Day Years Used Date Smoking Tobacco: Never Smokeless Tobacco: Never Alcohol Use Standard Drinks/Week Comments Not Currently 0 (1 standard drink = 0.6 oz pur e alcohol) [facility] Utilities Answer Date Recorded In the [...] place to sleep or slept in a snf (including now)? No 01/23/2023 Housing Stability Vital [...] time in the past 12 m [facility], were you homeless or living in a snf (including now)? No 03/25/2024 DH IPV Inpatient [...] as of this encounter Progress Notes * Alo Calhoun, [facility] - 04/28/2024 8:09 AM EDT Clinical Oncology Pharmacist Note Oncology PGx Results PATIENT ID: Charles Nick is a 48 y.o. male with duodenal adenocarcinoma. The patient's current treatment plan includes: FOLFOX. Pharmacist interpretation of Oncology PGx results is as follows: Interpretation: Gene Based on most recent FDA, CPIC (Clinical Pharmacogenetics Implementation Consortium), and DPWG([place] pharmacogenetics working group) guidelines: DPYD Normal metabolizer - No action necessary. NUDT15 Normal metabolizer - No action necessary. TPMT Normal metabolizer - No action necessary. UGT1A1 Normal metabolizer - No action necessary. The patient was evaluated by a clinical pharmacist for drug-gene interactions impacted by DPYD, NUDT15, TPMT, and UGT1A1, which is limited to the following medications: 5-Fluorouracil, Capecitabine, Tegafur, Mercaptopurine, Thioguanine, Azathioprine, Belinostat, Irinotecan, and Sacituzumab govitecan-hziy (brand name Rubyvy). Please do not hesitate to reach out with any questions. Alo Calhoun RPH 04/28/24 documented in this encounter Plan of Treatment Upcoming Encounters Date Type Department Care Team (Late st Contact Info) Description 05/21/2024 9:00 AM EDT Office [place] [address] Nighat López MD [facility] [place] [address] 05/28/2024 8:00 AM EDT Office Visit Hematology/Oncology at [address] [phone] Rodriguez Fowler MD [facility] [place] [address] Sherry Cedillo APRN [address] [place] [address] DR HEMATOLOGY [place] [address] 05/28/2024 8:30 AM EDT Infusion Hematology Oncology at [address] [phone] 05/28/2024 9:30 AM EDT Clinical Support Hematology/Oncology at [address] [phone] [facility] DR [place] [address] documented as of this encounter Visit Diagnoses Not on filedocumented in this encounter Care Teams Electrical Line Worker Relationship Specialty Start Date End Date Olga Hoffman APRN [address] [place] [address] PCP - General Family Medicine 10/30/22 documented as of this encounter
--- OUTSIDE RECORDS SUMMARY | 2024-05-21 01:08 | XMS_ITS | Encounter Summary ---
Author Organization [facility] [place] [address] Care Team Providers Care Director Long Term Care Name Role Phone Olga Hoffman APRN Primary Care Provider [phone] Reason for Referral * Diagnostic Test (Routine) - Closed Specialty Diagnoses / Procedures Referred By Contac t Referred To Contact Radiology Diagnoses H/O Whipple procedure Procedures CT Abdomen & Pelvis w Contrast Rudi Hernandez MD [facility] [place] [address] [facility] [place] [address] Referral ID Status Reason Start Date Expiration Date V isits Requested Visits Authorized [id number] Closed Specialty Service Requested 04/08/2024 10/09/2025 1 1 Reason for Visit * Diagnostic Test (Routine) - Closed Specialty Diagnoses / Procedures Referred By Contac t Referred To Contact Radiology Diagnoses H/O Whipple procedure Procedures CT Abdomen & Pelvis w Contrast Rudi Hernandez MD [facility] [place] [address] [facility] [place] [address] Referral ID Status Reason Start Date Expiration Date V isits Requested Visits Authorized [id number] Closed Specialty Service Requested 04/08/2024 10/09/2025 1 1 Encounter Details Date Type Department Care Team (Latest Contact Info) Description 04/08/2024 11:06 AM EDT - 04/08/2024 11:59 PM EDT Hospital Encounter CT Scan at [facility], [place], operated [place] [facility] [phone] Rudi Hernandez MD [facility] [place] [id number] H/O Whipple procedure Discharge Disposition: Home Social History Tobacco Use Types Packs/Day Years Used Date Smoking Tobacco: Never Smokeless Tobacco: Never Alcohol Use Standard Drinks/Week Comments Not Currently 0 (1 standard drink = 0.6 oz pur e alcohol) [facility] Utilities Answer Date Recorded In the past [...] place to sleep or slept in a assisted (including now)? No 01/23/2023 Housing Stability Vital Sign Answer Alexander e Recorded In the last 12 months, was t here a time when you were not able to pay the mortgage or rent on time? No 03/25/2024 In the past 12 months, how m any times have you moved where you were living? 0 03/25/2024 At any time in the past 12 m [facility], were you homeless or living in a assisted (including now)? No 03/25/2024 DH IPV Inpatient [...] on file documented as of this encounter Medications at Time of Discharge Medication Sig Dispensed Refills Start Date End Date insulin glargine-yfgn (Semglee) 100 unit/mL Solution Inject [...] 2 times daily. 30 tablet 03/08/2024 Insulin [place], Disposable, (BD Ultra-Fine Micro Pen Needle) 32 gauge x 1/4 Needle 1 each by [facility].(Non-Drug; Combo Route) route 2 [...] 2 times daily. 180 tablet 3 02/15/2021 fluconazole (Diflucan) 200 mg tabletIndications:H/O Whipple procedure Take 3 tablets by mouth daily for 14 days. 42 tablet 04/08/2024 04/22/2024 levoFLOXacin (Levaquin) 750 mg tabletIndications:H/O Whipple procedure Take 1 tablet by mouth daily for 14 days. 14 tablet 04/08/2024 04/21/2024 metroNIDAZOLE (Flagyl) 500 mg tabletIndications:H/O Whipple procedure Take 1 tablet by mouth 2 times daily for 14 days. 28 tablet 04/08/2024 04/21/2024 akjoxf-qwijelcw-fcgfb se (Zenpep) 40,000-126,000- 168,000 unit capsuleIndications:H/ O Whipple procedure Take 2 capsules by mouth 3 times daily. Take 2 capsules with meals and 1 capsule with snacks. 300 capsule 3 03/22/2024 04/09/2024 documented as of this encounter Plan of Treatment Upcoming Encounters Date Type Department Care Team (Late st Contact Info) Description 05/21/2024 9:00 AM EDT Office [place] [address] Nighat López MD [facility] [address] 05/28/2024 8:00 AM EDT Office Visit Hematology/Oncology at [address] [phone] Rodriguez Fowler MD [facility] [place] [address] Sherry Cedillo APRN [address] [place] [address] DR HEMATOLOGY AND ONCOLOGY [place], [place] [phone] 05/28/2024 8:30 AM EDT Infusion Hematology Oncology at [address] [phone] 05/28/2024 9:30 AM EDT Clinical Support Hematology/Oncology at [address] [phone] [facility] [place] [address] documented as of this encounter Procedures Procedure Name Priority Date/Time Associated Diagnosis Comments CT ABDOMEN AND PELVIS W CONTRAST Routine 04/08/2024 11:27 AM EDT H/O Whipple procedure documented in this encounter Results * CT Abdomen & Pelvis w Contrast (04/08/2024 11:27 AM EDT) [employer]itive WORKSTATION ID [id number] RAD Anatomical Region Laterality Modality Abdomen, Pelvis [...] who have questions please contact the health care connector that requested your imaging first. ? Electronically signed by: Flakito Cummings MD, [facility] ([phone]), at 04/09/2024 10:10 AM Narrative 04/09/2024 10:10 [...] patients who have questions please contactthe health care connector that requested your imaging first. Rudi Hernandez MD IMG CT ORDERABLES documented in this encounter Visit Diagnoses Diagnosis H/O Whipple procedure documented in this encounter Administered Medications Inactive Administered Medications - up to 3 most recent administrations Medication Order MAR Action Action Date Dose Rate Site iohexoL (Omnipaque) (350 mg/mL) solution 0-200 mL 0-200 mL, Intravenous, ONCE PRN, 1 dose, Starting on Aline 04/08/24 at 1127, Until Aline 04/08/24 at 1127, Per Protocol, Warning Vesicant/Irritant Medication , Radiology Contrast, Routine Given 04/08/2024 11:27 AM EDT 120 mLs documented in this encounter Care Teams Director Long Term Care Relationship Specialty Start Date End Date Olga Hoffman APRN [address] [place] [address] PCP - General Family Medicine 10/30/22 documented as of this encounter
--- OUTSIDE RECORDS SUMMARY | 2024-05-21 01:08 | XMS_ITS | Encounter Summary ---
Author Organization [facility] [place] [address] Care Team Providers Care Mining Machinery Assembler Name Role Phone Olga Hoffman APRN Primary Care Provider [phone] Reason for Referral * Diagnostic Test (Routine) - New Request Specialty Diagnoses / Procedures Referred By Contac t Referred To Contact Radiology Diagnoses Perihepatic abscess Duodenal adenocarcinoma Obesity due to excess calories with serious comorbidity, unspecified classification Procedures IR Drain Check/Change/Remove Joe Quintero, [facility] [address] [place] [address] Referral ID Status Reason Start Date Expiration Date Visits Requested Visits Authorized [id number] New Request Specialty Service Requested 03/25/2024 09/25/2025 1 1 Reason for Visit * Diagnostic Test (Routine) - New Request Specialty Diagnoses / Procedures Referred By Contac t Referred To Contact Radiology Diagnoses Perihepatic abscess Duodenal adenocarcinoma Obesity due to excess calories with serious comorbidity, unspecified classification Procedures IR Drain Check/Change/Remove Joe Quintero, [facility] [place] [address] [place] [address] Referral ID Status Reason Start Date Expiration Date Visits Requested Visits Authorized [id number] New Request Specialty Service Requested 03/25/2024 09/25/2025 1 1 Encounter Details Date Type Department Care Team (Latest Contact Info) Description 04/08/2024 10:50 AM EDT - 04/08/2024 11:05 AM EDT Hospital [place] [phone] Perihepatic abscess; Duodenal adenocarcinoma; Obesity due to excess calories with serious comorbidity, unspecified classification Discharge Disposition: Home Social History Tobacco Use Types Packs/Day Years Used Date Smoking Tobacco: Never Smokeless Tobacco: Never Alcohol Use Standard Drinks/Week Comments Not Currently 0 (1 standard drink = 0.6 oz pur e alcohol) [facility] Utilities Answer Date Recorded In the past [...] place to sleep or slept in a mcc (including now)? No 01/23/2023 Housing Stability Vital [...] in the past 12 m [facility], were you homeless or living in a mcc (including now)? No 03/25/2024 DH IPV Inpatient [...] on file documented as of this encounter Discharge Instructions * Discharge Instructions* Constanza Byers RN - 04/08/2024 12:38 PM EDT Images from the original note were not included. INTERVENTIONAL RADIOLOGY DRAIN CARE INSTRUCTIONS Drains help [...] is during regular office hours, please call [phone]. If it is after regular office hours, or on weekends or holidays, please call [phone] and ask to speak to the [place] [employer] Loader human capital consultant for Interventional Radiology. XX You have received [...] foul drainage occurs, please contact your M. D. Revised 07/01/19 Drainage Record NAME: Date of [...] 2 times daily. 30 tablet 03/08/2024 Insulin [place], Disposable, (BD Ultra-Fine Micro Pen Needle) 32 gauge x 1/4 Needle 1 each by [facility].(Non-Drug; Combo Route) route 2 times daily. 300 [...] 2 times daily. 180 tablet 3 02/15/2021 amoxicillin-clavulana te (Augmentin) 500-125 mg tablet Take 2 tablets by mouth 3 times daily for 7 days. 42 tablet 04/01/2024 04/08/2024 jevmpq-shbxyafu-qqehz se (Zenpep) 40,000-126,000- 168,000 unit capsuleIndications:H/ O Whipple procedure Take 2 capsules by mouth 3 times daily. Take 2 capsules with meals and 1 capsule with snacks. 300 capsule 3 03/22/2024 04/09/2024 documented as of this encounter Progress Notes * Jaki Cardona RN - 04/08/2024 12:12 PM EDT ANGIO NURSING DATABASE Name: Charles Nick Date of : 1975 AGE: 48 y.o. Address: [facility] [address] [place] [phone] (home) [phone] (work) Mobile: Telephone Information: Referring Provider: Joe Quintero REASON FOR VISIT: Order Questions Answers Where will study be performed? [facility] Radiology [120] To be scheduled Next available after expected date Reason for exam and clinical history: Duodenal Carcinoma status post whipple. Abscess in operative bed. Drain placed 03/25/24 Is the patient on anticoagulant / antiplatelet therapy ? No Planned procedure: Abdominal drain check Labs to be performed day of procedure: No labs Sedation: No Sedation Prophylactic antibiotic : None Contrast: Omnipaque Additional medications for procedure: Lidocaine Planned access site: provider preference Position: Supine Consent: Scanned Medications to discontinue [...] Perihepatic abscess K65.0 Severe protein-calorie malnutrition E43 Date/Procedure Meds Given/Comments 01/07/23 Liver Bx Fentanyl 100 mcg IV, Versed 2 mg IV; tolerated procedure well. 03/25/24 Peripancreatic drain IV Fentanyl 100mcg, IV Versed 1.5mg 04/08/24 IR Drain Check/Change/Remove - No Intervention Local 1209 to procedure room IR1 via stretcher. Onto table supine. All monitors, O2, safety strap in place. Meds per protocol. Laboratory Results: Lab Results Component Value Date INR 1.1 12/25/2022 Lab Results Component Value Date CREATININE 0.70 (L) 04/01/2024 Lab Results Component Value Date K 4.8 04/01/2024 Lab Results Component Value Date PLATELET 150 04/01/2024 documented in this encounter H&P Notes * Francisca Stout MD - 04/02/2024 1:25 PM EDT Images from the original note were not included. Interventional Radiology Focused Pre-procedure H&P: PCP: Olga Hoffman APRN Referring Provider: Joe Quintero Planned procedure: Abdominal drain check Procedure indication: Post-whipple peripancreatic abscess with drain in place IR workflow: Procedure request received through Interventional Radiology eDH order queue. Order Questions Answers Where will study be performed? [facility] Radiology [120] To be scheduled Next available after expected date Reason for exam and clinical history: Duodenal Carcinoma status post whipple. Abscess in operative bed. Drain placed 03/25/24 Is the patient on anticoagulant / antiplatelet therapy ? No History of Present Illness: Per chart review, Charles Nick is a 48 y.o. male with a peripancreatic drain due to post-whipple abscess formation. Hx of duodenal carcinoma s/p whipple. Placement of 10.2-Fr drainage catheter into peripancreatic fluid collection on 03/25/2024. Remainder of patient's medical and surgical history, allergies, medications, and social/family history obtained below as previously outlined in patient's medical record. Imaging: Assessment: 48 y.o. male with peripancreatic drain due to post-whipple abscess formation presentingto Interventional Radiology for drain check. Plan Planned procedure: Abdominal drain check Labs to be performed day of procedure: No labs Sedation: No Sedation Prophylactic antibiotic : None Contrast: Omnipaque Additional medications for procedure: Lidocaine Consent: Scanned Medications to discontinue (and days held): None Cytopathology presence needed: No Case Urgency:: G2- Elective Outpatient intervention within 8-14 days Labs: Lab Results Component Value Date HGB 12.1 (L) 04/01/2024 HCT 37.2 (L) 04/01/2024 WBC 6.1 04/01/2024 PLATELET 150 04/01/2024 INR 1.1 12/25/2022 BUN 10 04/01/2024 CREATININE 0.70 (L) 04/01/2024 ALBUMIN 2.7 (L) 03/29/2024 BILIDIR 0.1 03/29/2024 BILITOT 0.2 03/29/2024 AST 10 03/29/2024 ALT 8 03/29/2024 ALKPHOS 66 03/29/2024 Allergies: Penicillins Medications: Current Outpatient Medications on File Prior to Encounter Medication Sig Dispense Refill fluconazole (Diflucan) 200 mg tablet Take 3 tablets by mouth daily for 6 days. 18 tablet 0 insulin glargine-yfgn (Semglee) 100 unit/mL Solution Inject 10 Units subcutaneously daily. 10 mL 0 acetaminophen (Tylenol) 325 mg tablet Take 2 tablets by mouth every 8 hours as needed for Pain. 30 tablet 1 amoxicillin-clavulanate (Augmentin) 500-125 mg tablet Take 2 tablets by mouth 3 times daily for 7 days. 42 tablet 0 fzahoq-koltrhne-awsfmxe (Zenpep) 40,000-126,000- 168,[address] capsule Take 2 capsules by mouth 3times daily. Take 2 capsules with meals and 1 capsule with snacks. 300 capsule 3 ondansetron ODT (Zofran-ODT) 4 mg disintegrating tablet Take 1 tablet by mouth every 8 hours as needed for Nausea. 9 tablet 0 omeprazole (PriLOSEC) [address] capsule Take 1 capsule by mouth daily. 90 capsule 1 oxyCODONE (Roxicodone) 5 mg tablet Take 1-2 tablets by mouth every 4 hours as needed for Pain (5mg for moderate pain 4-6 not controlled with Tylenol, 10mg for severe pain 7-10 not controlled with Tylenol). (Patient not taking: Reported on 03/17/2024) 10 tablet 0 potassium chloride ER (Klor-Con, K-Tab) 10 mEq ER tablet Take 1 tablet by mouth 2 times daily. 30 tablet 0 Insulin [place], Disposable, (BD Ultra-Fine Micro Pen Needle) 32 gauge x 1/4 Needle 1 each by [facility].(Non-Drug; Combo Route) route 2 times daily. 300 [...] mouth 2 times daily. 180 tablet 3 Current Facility-Administered Medications on File Prior to Encounter Medication Dose Route Frequency Provider Last Rate Last Admin [DISCONTINUED] amoxicillin-clavulanate (Augmentin) 500-125 mg per tablet 2 tablet 2 tablet Oral TIDAChalino ace MD 2 tablet at 04/01/24 0819 [DISCONTINUED] fluconazole (Diflucan) tablet 600 mg 600 mg Oral Daily Chalino Cristina MD 600 mg at 04/01/24 0819 [DISCONTINUED] acetaminophen (Tylenol) tablet 650 mg 650 mg Oral Q8H PRN Chalino Cristina MD [COMPLETED] Adult TPN Intravenous Continuous (TPN) Gary Mtz PA Stopped at 04/01/24 1351 [DISCONTINUED] insulin lispro (HumaLOG;Admelog) (100 unit/mL) subcutaneous injection vial 0-11 Units 0-11 Units Subcutaneous TID Isidra Hickey APRN 4 Units at 04/01/24 1307 [DISCONTINUED] ivysrt-bqmidbus-aoskgnh DR (Zenpep 20) 20,000-63,000- 84,000 unit per capsule 2 capsule 2 capsule Oral TID WC Gary Mtz PA 2 capsule at 04/01/24 1231 [DISCONTINUED] metoclopramide (Reglan) (5 mg/mL) injection 10 mg 10 mg Intravenous 4 Times Daily AC& HS Gary Mtz PA 10 mg at 04/01/24 1308 [DISCONTINUED] gabapentin (Neurontin) capsule 600 mg 600 mg Oral TID Janette Austin MD 600 mg at 03/31/24 2135 [DISCONTINUED] pantoprazole EC (Protonix) tablet 40 mg 40 mg Oral Daily Janette Austin MD 40 mg at 04/01/24817 [DISCONTINUED] insulin lispro (HumaLOG;Admelog) (100 unit/mL) subcutaneous injection vial 1-6 Units1-6 Units Subcutaneous Q4H Kristen Sin APRN 3 Units at 04/01/24 1307 [DISCONTINUED] citalopram (CeleXA) tablet 40 mg 40 mg Oral Daily Luke Hyde MD 40 mg at 04/01/24817 [DISCONTINUED] gabapentin (Neurontin) capsule 600 mg 600 mg Oral TID PRN Rafi Grimaldo MD 600mg at 03/27/242045 [DISCONTINUED] glucose (Glutose) 40% oral geL 15-30 g of glucose Buccal Q15 Min PRN Gary Mtz PA [DISCONTINUED] dextrose 10% infusion 250 mL Intravenous Q15 Min PRN Gary Mtz PA [DISCONTINUED] glucagon (Glucagen) (1 mg/mL) injection solution 1 mg 1 mg Intramuscular Q15 Min PRGary Chin PA [DISCONTINUED] insulin glargine-ygfn (Semglee) (100 unit/mL) subcutaneous injection vial 10 Units 10 Units Subcutaneous Daily Gary Mtz PA 10 Units at 04/01/2418 [DISCONTINUED] sodium chloride 0.9 % (flush) (BD PosiFlush Normal Saline 0.9) flush 5 mL 5 mL Intravenous BID Gary Mtz PA 5 mL at 04/01/24 0838 [DISCONTINUED] sodium chloride 0.9 % (flush) (BD PosiFlush Normal Saline 0.9) flush 5-20 mL 5-20 mLIntravenous Q1 Min PRN Gary Mzt PA [DISCONTINUED] lidocaine (Xylocaine) 1% (10 mg/mL) injection 3 mg 0.3 mL Subcutaneous Once PRN Gary Mtz PA [DISCONTINUED] sodium chloride 0.9 % (flush) (BD PosiFlush Normal Saline 0.9) flush 5 mL 5 mL Intravenous BID Janette Austin MD 5 mL at 04/01/24 0838 [DISCONTINUED] sodium chloride 0.9 % (flush) (BD PosiFlush Normal Saline 0.9) flush 5-20 mL 5-20 mLIntravenous Q1 Min PRN Min, Janette Cade MD [DISCONTINUED] lidocaine (Xylocaine) 1% (10 mg/mL) injection 3 mg 0.3 mL Subcutaneous Once PRN Min,Janette Cade MD [DISCONTINUED] heparin (porcine) (5,000 units/1 mL) subcutaneous injection 5,000 Units 5,000 Units Subcutaneous Q8H MIRTA Min, Janette Cade MD 5,000 Units at 04/01/24 1308 [DISCONTINUED] ondansetron ODT (Zofran-ODT) disintegrating tablet 4 mg 4 mg Oral Q8H PRN Min, Janette Cade MD [DISCONTINUED] ondansetron (pf) (Zofran) (2 mg/mL) injection 4 mg 4 mg Intravenous Q8H PRN Min, Janette Cade MD 4 mg at 03/29/24 0125 [DISCONTINUED] senna-docusate (Pericolace) 8.6-50 mg per tablet 2 tablet 2 tablet Oral BID Janette Austin MD 2 tablet at 04/01/24 0819 [DISCONTINUED] polyethylene glycoL (Miralax) packet 17 g 17 g Oral Daily Janette Austin MD 17 g at 04/01/24 0818 Past Medical/Surgical history: Patient Active Problem List [...] CT Guided Drain Pancreatic/Peripancreatic Joe Quintero DO [facility] RAD CT SCAN IR BIOPSY LIVER PERCUTANEOUS - NON-FOCAL PARENCHYMA 01/07/2023 IR Biopsy Liver Percutaneous 01/07/2023 Juan Wright MD [facility] INTERVENTIONL RAD PRO PART REMV PANC, PROX+REMV DUOD+ANAST N/A 03/01/2024 @CHAKA PROCEDURE (WRVU 52.84) performed by Rudi Hernandez MD at [facility] MAIN OR PRO TRANSFER SKIN PEDICLE FLAP N/A 03/01/2024 TRANSFER, INTERMEDIATE, ANY PEDICLE FLAP, ANY LOCATION (WRVU 4.77) performed by Rudi Hernandez MD at [facility] MAIN OR Social History and Habits: [...] assessed in IR the day of procedure) 04/02/2024 documented in this encounter Plan of Treatment Upcoming Encounters Date Type Department Care Team (Late st Contact Info) Description 05/21/2024 9:00 AM EDT Office [place] [address] Nighat López MD [facility] [place] [address] 05/28/2024 8:00 AM EDT Office Visit Hematology/Oncology at [address] [phone] Rodriguez Fowler MD [facility] [place] [address] Sherry Cedillo APRN [address] [place] [address] DR HEMATOLOGY AND ONCOLOGY [place], [place] [phone] 05/28/2024 8:30 AM EDT Infusion Hematology Oncology at [address] [phone] 05/28/2024 9:30 AM EDT Clinical Support Hematology/Oncology at [address] [phone] [facility] [place] [address] documented as of this encounter Procedures Procedure Name Priority Date/Time Associated Diagnosis Comments IR DRAIN CHECK/CHANGE/REMOV E Routine 04/08/2024 12:38 PM EDT Perihepatic abscess Duodenal adenocarcinoma Obesity due to excess calories with serious comorbidity, unspecified classification documented in this encounter Results * IR Drain Check/Change/Remove (04/08/2024 12:38 PM EDT) Anatomical Region Laterality Modality Head X-Ray Angiograph y Narrative 04/09/2024 11:52 AM EDT Images from the original result were not included. INTERVENTIONAL RADIOLOGY PROCEDURE NOTE Procedure: Drain check Indication for Procedure: Duodenal carcinoma status post Whipple. ??Abscess in operative bed. ??Drain placed 03/25/2024. ??Routine drain check. Informed Consent: After discussing risks (including infection, [...] the procedure table. ??The drain and surrounding skin was cleaned and prepped in typical sterile fashion; maximum sterile barrier technique was used throughout. ?? Spot image obtained. ??Contrast injected, spot image obtained. ??Roughly 10 ccs of serosanguineous fluid was aspirated and the catheter was connected to bulb drainage. Patient tolerated the procedure well and there were no immediate complications. Medications: Lidocaine 2% Gel topically ?? Contrast: 10 cc Omnipaque 350, other Fluoroscopic Time: 0.3 minutes Estimated Blood Loss: 0 cc. Complications: ??No immediate. Findings: Preexisting drain in 2 cm residual irregular space and communicates with small bowel, no clear communication with pancreatic duct. Drain left in place, not exchanged. 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 ??Discussed with Surgery and we will plan on a follow up drain check in 2 weeks. Plan: - Drain check ordered for 2 weeks. -To angio recovery, may discharge to home, when meets criteria Resident/Fellow: Ayush Feliciano MD Attending: Dr. Wright Joe Quintero DO IMG IR ORDERABLES documented in this encounter Visit Diagnoses Diagnosis Perihepatic abscess Peritoneal abscess Duodenal adenocarcinoma Malignant neoplasm of duodenum Obesity due to excess calories with serious comorbidity, unspecified classification documented in this encounter Administered Medications Inactive Administered Medications - up to 3 most recent administrations Medication Order MAR Action Action Date Dose Rate Site iohexoL (Omnipaque) (350 mg/mL) solution 1-400 mL 1-400 mL, Other, ONCE, 1 dose, On Aline 04/08/24 at 1145, For intra-procedural use by proceduralist., Angio/IR (Intra-Procedure), Routine Given 04/08/2024 11:45 AM EDT 10 mLs documented in this encounter Care Teams Mining Machinery Assembler Relationship Specialty Start Date End Date Olga Hoffman APRN [address] [place] [address] PCP - General Family Medicine 10/30/22 documented as of this encounter
--- OUTSIDE RECORDS SUMMARY | 2024-05-21 01:08 | XMS_ITS | Encounter Summary ---
Author Organization [facility] Address [facility] [place] [address] Care Team Providers Care Gis Application Developer Name Role Phone Olga Hoffman APRN Primary Care Provider +1 [phone] Encounter Details Date Type Department Care Team (Latest Contact Info) Description 04/20/2024 Travel Social History Tobacco Use Types Packs/Day Years Used Date Smoking Tobacco: Never Smokeless Tobacco: Never Alcohol Use Standard Drinks/Week Comments Not Currently 0 (1 standard drink = 0.6 oz pur e alcohol) [facility] Utilities Answer Date Recorded In the [...] place to sleep or slept in a retirement (including now)? No 01/23/2023 Housing Stability Vital Sign Answer Alexander e Recorded In the last 12 months, was t here a time when you were not able to pay the mortgage or rent on time? No 03/25/2024 In the past 12 months, how m any times have you moved where you were living? 0 03/25/2024 At any time in the past 12 m [facility], were you homeless or living in a retirement (including now)? No 03/25/2024 IPV Inpatient Questions [...] 9:00 AM EDT Office [place] [address] Nighat López MD [facility] [place] [address] 05/28/2024 8:00 AM EDT Office Visit Hematology/Oncology at [address] [phone] Rodriguez Fowler MD [facility] [place] [address] Sherry Cedillo APRN [address] [place] [address] DR [place] [address] 05/28/2024 8:30 AM EDT Infusion Hematology Oncology at [address] [phone] 05/28/2024 9:30 AM EDT Clinical Support Hematology/Oncology at [address] [phone] Leah Rose, RD [facility] DR [place]EMAT[place]Y [place] [address] documented as of this encounter Visit Diagnoses Not on filedocumented in this encounter Care Teams Gis Application Developer Relationship Specialty Start Date End Date Olga Hoffman APRN [address] [place] [address] PCP - General Family Medicine 10/30/22 documented as of this encounter
--- OUTSIDE RECORDS SUMMARY | 2024-05-21 01:08 | XMS_ITS | Encounter Summary ---
Author Organization [facility] [place] [address] Care Team Providers Care Software Development Analyst Name Role Phone Olga Hoffman APRN Primary Care Provider [phone] [phone] Encounter Details Date Type Department Care Team (Late st Contact Info) Description 04/27/2024 Orders [place] [address] Rudi Hernandez MD [facility] [place] [address] Social History Tobacco Use Types Packs/Day Years Used Date Smoking Tobacco: Never Smokeless Tobacco: Never Alcohol Use Standard Drinks/Week Comments Not Currently 0 (1 standard drink = 0.6 oz pur e alcohol) [facility] Utilities Answer Date Recorded In the past 12 months has [facility] electric, gas, oil, or water company threatened [...] in the past 12 m [facility], were you homeless or living in a [...] 9:00 AM EDT Office [place] [address] Nighat López MD [facility] [place] [address] 05/28/2024 8:00 AM EDT Office Visit Hematology/Oncology at [address] [phone] Rodriguez Fowler MD [facility] [place] [address] Sherry Cedillo APRN [address] [place] [address] DR HEMATOLOGY AND ONCOLOGY [place], [place] [id number] 05/28/2024 8:30 AM EDT Infusion Hematology Oncology at [address] [phone] 05/28/2024 9:30 AM EDT Clinical Support Hematology/Oncology at [address] [phone] [facility] [place] [address] documented as of this encounter Visit Diagnoses Not on filedocumented in this encounter Care Teams Software Development Analyst Relationship Specialty Start Date End Date Olga Hoffman APRN [address] [place] [address] PCP - General Family Medicine 10/30/22 documented as of this encounter
--- OUTSIDE RECORDS SUMMARY | 2024-05-21 01:08 | XMS_ITS | Encounter Summary ---
Author [place] [address] Care Team Providers Care Jack Prizer Name Role Phone Olga Hoffman APRN Primary Care Provider [phone] [phone] Reason for Referral * Diagnostic Test (Routine) - New Request Specialty Diagnoses / Procedures Referred By Contac t Referred To Contact Radiology Diagnoses Perihepatic abscess Procedures IR Drain Check/Change/Remove Silvio Wheeler MD [facility] [place] [address] [place] [address] Referral ID Status Reason Start Date Expiration Date Visits Requested Visits Authorized [id number] New Request Specialty Service Requested 04/21/2024 10/22/2025 1 1 * Diagnostic Test (Routine) - New Request Specialty Diagnoses / Procedures Referred By Contac t Referred To Contact Radiology Diagnoses Perihepatic abscess Duodenal adenocarcinoma Procedures IR Drain Check/Change/Remove Tejas Henao PA [facility] [place] [address] [facility] [address] Referral ID Status Reason Start Date Expiration Date Visits Requested Visits Authorized [id number] New Request Specialty Service Requested 04/09/2024 10/10/2025 1 1 Reason for Visit * Diagnostic Test (Routine) - New Request Specialty Diagnoses / Procedures Referred By Janak holland Referred To Contact Radiology Diagnoses Perihepatic abscess Duodenal adenocarcinoma Procedures IR Drain Check/Change/Remove Tejas Henao PA [facility] [place] [address] [facility] [address] Referral ID Status Reason Start Date Expiration Date Visits Requested Visits Authorized [id number] New Request Specialty Service Requested 04/09/2024 10/10/2025 1 1 Encounter Details Date Type Department Care Team (Latest Contact Info) Description 04/21/2024 10:13 AM EDT - 04/21/2024 11:59 PM EDT Hospital Encounter [place] [address] Juan Wright MD [facility] [place] [address] Perihepatic abscess; Duodenal adenocarcinoma Discharge Disposition: Home Social History Tobacco Use Types Packs/Day Years Used Date Smoking Tobacco: Never Smokeless Tobacco: Never Alcohol Use Standard Drinks/Week Comments Not Currently 0 (1 standard drink = 0.6 oz pur e alcohol) [facility] Utilities Answer Date Recorded In the past 12 months has [employer], gas, oil, or water [employer] threatened to shut off services in your [...] in a halfway (including now)? No 03/25/2024 DH IPV Inpatient [...] Sign Reading Time Taken Comments Blood Pressure 147/91 04/21/2024 12:00 PM EDT Pulse 70 04/21/2024 11:06 AM EDT Temperature 36.4 ??C (97.5 ??F) 04/21/2024 11:06 AM E DT Respiratory Rate 18 04/21/2024 11:45 AM EDT Oxygen Saturation 97% 04/21/2024 12:00 PM EDT Inhaled Oxygen Concentration - - Weight - - Height - - Body Mass Index - - documented in this encounter Discharge Instructions * Discharge Instructions* Bernardo Kirk RN - 04/21/2024 11:48 AM EDT INTERVENTIONAL RADIOLOGY DRAIN CARE INSTRUCTIONS [...] is during regular office hours, please call [phone]. If it is after regular office hours, or on weekends or holidays, please call [phone] and ask to speak to the Mixed Signal Design Engineer cotton washer for Interventional Radiology. XX You have received [...] Sig Dispensed Refills Start Date End Date dyjthf-etjtgaqs-glmdo se (Zenpep) 40,000-126,000- 168,[address] capsule [...] 2 times daily. 30 tablet 03/08/2024 Insulin [place], Disposable, (BD Ultra-Fine Micro Pen Needle) 32 gauge x 1/4 Needle 1 each by [facility].(Non-Drug; Combo Route) route 2 times daily. 300 [...] 2 times daily. 180 tablet 3 02/15/2021 metroNIDAZOLE (Flagyl) 500 mg tabletIndications:H/O Whipple procedure Take 1 tablet by mouth 2 times daily for 14 days. 28 tablet 04/21/2024 05/05/2024 levoFLOXacin (Levaquin) 750 mg tabletIndications:H/O Whipple procedure Take 1 tablet by mouth daily for 14 days. 14 tablet 04/21/2024 05/05/2024 fluconazole (Diflucan) 200 mg tabletIndications:H/O Whipple procedure Take 3 tablets by mouth daily for 14 days. 42 tablet 04/08/2024 04/22/2024 documented as of this encounter Progress Notes * Bernardo Kirk RN - 04/21/2024 11:47 AM EDT ANGIO NURSING DATABASE Name: Charles Nick Date of : 1975 AGE: 48 y.o. Address: [facility] [address] [facility] [address] (home) [phone] (work) Mobile: Telephone Information: Referring Provider: Tejas Henao REASON FOR VISIT: Order Questions Answers Where will study be performed? 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 None Is the patient on anticoagulant / antiplatelet therapy ? No Planned procedure: Drain check/exchange/removal Labs to be performed day of procedure: No labs Sedation: No Sedation Prophylactic antibiotic : None Contrast: Omnipaque Additional medications for procedure: Lidocaine; Lido jelly Planned access site: provider preference Position: Supine [...] Drain Check/Change/Remove - No Intervention Local 04/21/24 Drain check No interventions local 1141 to procedure room 4 via stretcher. Onto table supine. All monitors, O2, safety strap in place.Meds per protocol. Laboratory Results: Lab Results Component Value Date INR 1.1 12/25/2022 Lab Results Component Value Date CREATININE 0.97 04/08/2024 Lab Results Component Value Date K 4.8 04/08/2024 Lab Results Component Value Date PLATELET 248 04/08/2024 documented in this encounter H&P Notes * [place], Latonia E, PA - 04/12/2024 11:19 AM EDT Images from the original note were not included. Interventional Radiology Focused Pre-procedure H&P: PCP: Olga Hoffman APRN Referring Provider: Tejas Henao Planned procedure: Drain check/exchange/removal Procedure indication: Duodenal carcinoma status post Whipple. Abscess in operative bed. Drain placed 03/25/2024. Routine drain check. IR workflow: Procedure request received through Interventional Radiology eDH order queue. Order Questions Answers Where will study be performed? 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 None Is the patient on anticoagulant / antiplatelet therapy ? No History of Present Illness: Per chart review, Charles Nick is a 48 y.o. 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 Remainder of patient's medical and surgical history, [...] 30 04/08/2024 ALKPHOS 105 04/08/2024 Allergies: Penicillins Imagin04/08/24 Assessment: 48 y.o. male with indwelling marizol-pancreatic drain presenting to Interventional Radiology for routine drain check. Plan Planned procedure: Drain check/exchange/removal Labs to be performed day of procedure: No labs Sedation: No Sedation Prophylactic antibiotic : None Contrast: Omnipaque Additional medications for procedure: Lidocaine, Lido jelly Position: Supine Consent: Scanned Medications to discontinue (and days held): None Cytopathology presence needed: No Case Urgency:: G2- Elective Outpatient intervention within 8-14 days Medications: Current Outpatient Medications on File Prior to Encounter Medication Sig Dispense Refill qhzjbm-frnjefuz-otdaoxn (Zenpep) 40,000-126,000- 168,[address] capsule Take [...] 2 times daily. 30 tablet 0 Insulin [place], Disposable, (BD Ultra-Fine Micro Pen Needle) 32 gauge x 1/4 Needle 1 each by [facility].(Non-Drug; Combo Route) route 2 times daily. 300 [...] 03/25/2024 CT Guided Drain Pancreatic/Peripancreatic Joe Quintero, [facility] RAD CT SCAN IR BIOPSY LIVER PERCUTANEOUS - NON-FOCAL PARENCHYMA 01/07/2023 IR Biopsy Liver Percutaneous 01/07/2023 Juan Wright MD [facility] INTERVENTIONL RAD IR DRAIN CHECK/CHANGE/REMOVE 04/08/2024 IR Drain Check/Change/Remove 04/08/2024 Juan Wright MD [facility] INTERVENTIONL RAD PRO PART REMV PANC, PROX+REMV DUOD+ANAST N/A 03/01/2024 @NUVIAIPPLE PROCEDURE (WRVU 52.84) performed by Rudi Hernandez MD at [facility] MAIN OR PRO TRANSFER SKIN PEDICLE FLAP N/A 03/01/2024 TRANSFER, INTERMEDIATE, ANY PEDICLE FLAP, ANY LOCATION (WRVU 4.77) performed by Rudi Hernandez MD at [facility] MAIN OR Social History and Habits: Social [...] assessed in IR the day of procedure) 04/12/2024 Latonia Oscar PA-C documented in this encounter Procedure Notes * Silvio Wheeler MD - 04/21/2024 12:08 PM EDT Images from the original note were not included. IR PROCEDURE NOTE Procedure: Abdominal drain injection. Indication for Procedure: Per Latonia KIM Charles Nick is a 48 y.o. male with PMH of duodenal carcinoma s/p Whipple complicated by abscessin operative bed s/p 10Fr drain placement (03/25) who presents to Interventional Radiology to undergo routine drain check. 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 Procedure events and findings: Patient was positioned supine on procedure table and sterile prep and drape performed. Maximum sterile barrier technique was used throughout. Contrast injection via thedrainage catheter showed prompt flow to bowel. Contrast appeared to opacify bowel prior to opacifying pancreatic duct. Complex angle, cranial/caudal plus DÍAZ, suggests communication between drained space and bowel, see below. Catheter was left in place but converted from bulb to bag drainage. Medications: 2% lidocaine gel topical. Est Blood Loss: <5cc. Complications: No immediate. Impression: 1. Persistent communication between drained space and bowel. 2. Drain left in place but converted to bag rather than bulb drainage. 3. Follow-up study in ~2 weeks with potential conversion to smaller pigtail drainage catheter or other (attempt to increase separation between bowel and catheter.) Resident/Fellow: None. Attending: Dr. Summer Logan performed this procedure. documented in this encounter Plan of Treatment Upcoming Encounters Date Type Department Care Team (Late st Contact Info) Description 05/21/2024 9:00 AM EDT Office Visit [place] [address] Nighat López MD [facility] [place] [address] 05/28/2024 8:00 AM EDT Office Visit Hematology/Oncology at [address] [phone] Rodriguez Fowler MD [facility] [place] [address] Sherry Cedillo APRN [address] [place] [address] DR HEMATOLOGY AND ONCOLOGY [place], [place] [id number] 05/28/2024 8:30 AM EDT Infusion Hematology Oncology at [address] [phone] 05/28/2024 9:30 AM EDT Clinical Support Hematology/Oncology at [address] [phone] [address] [facility] [place] [address] documented as of this encounter Procedures Procedure Name Priority Date/Time Associated Diagnosis Comments IR DRAIN CHECK/CHANGE/REMOV E Routine 04/21/2024 12:11 PM EDT Perihepatic abscess Duodenal adenocarcinoma documented in this encounter Results * IR [...] sterile barrier technique was used throughout. ?? Information Technology Teacher fluoroscopic images were obtained. ??Contrast was injected [...] procedure. Silvio Wheeler MD IMG IR ORDERABLES * IR Drain Check/Change/Remove (04/21/2024 12:11 PM EDT) Anatomical Region Laterality Modality Head X-Ray Angiograph y Narrative 04/21/2024 12:26 PM EDT Table formatting from the original result was not included. Images from the original result were not included. IR PROCEDURE NOTE Procedure: Abdominal drain injection. Indication for Procedure: Per Latonia KIM, Chrales Nick is a 48 y.o. male with PMH of duodenal carcinoma s/p Whipple complicated by abscess in operative bed s/p 10Fr drain placement (03/25) who presents to Interventional Radiology to undergo routine drain check. 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 Procedure events and findings: Patient was positioned supine on procedure table and sterile prep and drape performed. ??Maximum sterile barrier technique was used throughout. ??Contrast injection via the drainage catheter showed prompt flow to bowel. ??Contrast appeared to opacify bowel prior to opacifying pancreatic duct. ??Complex angle, cranial/caudal plus DÍAZ, suggests communication between drained space and bowel, see below. ?? Catheter was left in place but converted from bulb to bag drainage. ?? Medications: 2% lidocaine gel topical. Est Blood Loss: <5cc. Complications: ??No immediate. Impression: 1. ??Persistent communication between drained space and bowel. 2. ??Drain left in place but converted to bag rather than bulb drainage. 3. ??Follow-up study in ~2 weeks with potential conversion to smaller pigtail drainage catheter or other (attempt to increase separation between bowel and catheter.) Resident/Fellow: None. Attending: IDr. Wheeler performed this procedure. ? Juan Wright MD G IR ORDERABLES documented in this encounter Visit Diagnoses Diagnosis Perihepatic abscess Peritoneal abscess Duodenal adenocarcinoma Malignant neoplasm of duodenum Perihepatic abscess Peritoneal abscess documented in this encounter Administered Medications Inactive Administered Medications - up to 3 most recent administrations Medication Order MAR Action Action Date Dose Rate Site iohexoL (Omnipaque) (350 mg/mL) solution 1-400 mL 1-400 mL, Other, ONCE, 1 dose, On Fri04/21/24 at 1145, For intra-procedural use by proceduralist., Angio/IR (Intra-Procedure), Routine Given 04/21/2024 11:45 AM EDT 10 mLs lidocaine (Glydo) 2 % gel 6 mL 6 mL, Topical (Top), EVERY 4 HOURS PRN, Starting on Fri04/21/24 at 1057, Until Aline 04/22/24 at 0434, Pain, For use in Interventional Radiology (IR) only for procedure with direct provider supervision and verbal order., Angio/IR (Intra-Procedure), Routine Given 04/21/2024 11:02 AM EDT 6 mLs documented in this encounter Care Teams Jack Prizer Relationship Specialty Start Date End Date Olga Hoffman APRN [address] [place] [address] PCP - General Family Medicine 10/30/22 documented as of this encounter
--- OUTSIDE RECORDS SUMMARY | 2024-05-21 01:08 | XMS_ITS | Encounter Summary ---
Author Organization [facility] [place] [address] Care Team Providers Care Marklogic Developer Name Role Phone Olga Hoffman APRN Primary Care Provider [phone] [phone] Encounter Details Date Type Department Care Team (Late st Contact Info) Description 04/09/2024 Orders [place] [address] Rudi Hernandez MD [facility] [place] [address] Social History Tobacco Use Types Packs/Day Years Used Date Smoking Tobacco: Never Smokeless Tobacco: Never Alcohol Use Standard Drinks/Week Comments Not Currently 0 (1 standard drink = 0.6 oz pur e alcohol) [facility] Utilities Answer Date Recorded In the past 12 months has [facility] electric, gas, oil, or water company threatened [...] in the past 12 m [facility], were you homeless or living in a detention (including now)? No 03/25/2024 IPV Inpatient Questions [...] 9:00 AM EDT Office [place] [address] Nighat López MD [facility] [place] [address] 05/28/2024 8:00 AM EDT Office Visit Hematology/Oncology at [address] [phone] Rodriguez Fowler MD [facility] [place] [address] Sherry Cedillo APRN [address] [place] [address] DR HEMATOLOGY AND ONCOLOGY [place] [id number] 05/28/2024 8:30 AM EDT Infusion Hematology Oncology at [address] [phone] 05/28/2024 9:30 AM EDT Clinical Support Hematology/Oncology at [address] [phone] [facility] HEMATOLOGY [place] [address] documented as of this encounter Visit Diagnoses Not on filedocumented in this encounter Care Teams Marklogic Developer Relationship Specialty Start Date End Date Olga Hoffman APRN [address] [place] [address] PCP - General Family Medicine 10/30/22 documented as of this encounter
--- OUTSIDE RECORDS SUMMARY | 2024-05-21 01:08 | XMS_ITS | Encounter Summary ---
Author Organization [facility] Address [facility] [place] [address] Care Team Providers Care Button Inspector Name Role Phone Olga Hoffman APRN Primary Care Provider [phone] [phone] Encounter Details Date Type Department Care Team (Latest Contact Info) Description 04/26/2024 Travel Social History Tobacco Use Types Packs/Day [...] place to sleep or slept in a prison (including now)? No 01/23/2023 Housing Stability Vital Sign Answer Alexander e Recorded In the last 12 months, was t here a time when you were not able to pay the mortgage or rent on time? No 03/25/2024 In the past 12 months, how m any times have you moved where you were living? 0 03/25/2024 At any time in the past 12 m [facility], were you homeless or living in a prison (including now)? No 03/25/2024 IPV Inpatient Questions [...] 9:00 AM EDT Office [place] [address]ópez MD [facility] [place] [address] 05/28/2024 8:00 AM EDT Office Visit Hematology/Oncology at [address] [phone] [facility] [address] Sherry Cedillo APRN [address] [place] [address] DR [place] [address] 05/28/2024 8:30 AM EDT Infusion Hematology Oncology at [address] [phone] 05/28/2024 9:30 AM EDT Clinical Support Hematology/Oncology at [address] [phone] Leah Rose, RD [facility] [place] [address] documented as of this encounter Visit Diagnoses Not on filedocumented in this encounter Care Teams Button Inspector Relationship Specialty Start Date End Date Olga Hoffman APRN [address] [place] [address] PCP - General Family Medicine 10/30/22 documented as of this encounter
--- OUTSIDE RECORDS SUMMARY | 2024-05-21 01:08 | XMS_ITS | Encounter Summary ---
Author Organization [facility] Address [facility] [place] [address] Care Team Providers Care Sewing Machine Operator Plastic Zipper Name Role Phone Olga Hoffman APRN Primary Care Provider [phone] Encounter Details Date Type Department Care Team (Late st Contact Info) Description 04/21/2024 9:00 AM EDT Office [place] [address] Rudi Hernandez MD [facility] [place] [address] H/O Whipple procedure Social History Tobacco Use Types Packs/Day Years Used Date Smoking Tobacco: Never Smokeless Tobacco: Never Alcohol Use Standard Drinks/Week Comments Not Currently 0 (1 standard drink = 0.6 oz pur e alcohol) [facility] Utilities Answer Date Recorded In the past 12 months has [employer], gas, oil, or water [employer] threatened to shut off services in your [...] time in the past 12 m [facility], were you homeless or living in a prison (including now)? No 03/25/2024 DH IPV Inpatient [...] Sign Reading Time Taken Comments Blood Pressure 142/91 04/21/2024 8:59 AM EDT Pulse - - Temperature - - Respiratory Rate - - Oxygen Saturation - - Inhaled Oxygen Concentration - - Weight 119.3 kg (263 lb) 04/21/2024 8:59 AM EDT Height - - Body Mass Index 33.15 04/20/2024 11:22 AM EDT documented in this encounter Progress Notes * Rudi Hernandez MD - 04/21/2024 9:00 AM EDT Department of General Surgery [...] Nick is now 2 weeks postop from [place]. He has been home for over a [...] and the drain was left in place. Physical Exam: Temp: -- Heart Rate: -- Resp: -- BP: (142)/(91) SpO2: -- Heart Rate from SpO2: -- General: NAD, resting comfortably, pleasant, conversant HEENT: NCAT Pulm: non labored breathing Abd: soft, nontender, nondistended. Drain in place with thin serous appearing output, no red tinge. Skin: warm, dry Ext: no cyanosis, cap refill <2sec Neuro: grossly intact, nonfocal Labs 04/20/2024 WBC 7.2 Hemoglobin 12.6 Platelets 178 LFTs within normal limits Assessment and Plan: Charles Nick is a 48-year-old gentleman with a history of duodenal adenocarcinoma status post Whipple. His recovery has been complicated by an abscess/pancreatic leak. I saw him 2 weeks ago at which point we had switched him from Augmentin to Levaquin and Flagyl. His white count is normal yesterday 7.2. He reports that overall he continues to feel much better. With progressive slow improvement.He is tolerating a diet and reports that his bloating and nausea has improved with the initiation of Creon. He is moving his bowels although he does note that they are still on the looser side. In reviewing his output from his IR drain over the last week he has mostly had 30 cc of output however output did increase yesterday. At this point I would keep the drain in place. I spoke to Dr. Torres from interventional radiology and we discussed transitioning from the BASIA bulb to a gravity bag to helpdecrease the negative pressure at the end of the drain which may potentially help close this. I didget an EKG for QTc monitoring giving his medications and his QTc is 432. I will prescribe additional Levaquin and Flagyl while the drain is in place. I will plan on seeing him back the next time he is back for drain study. - rtc in 2 weeks, day of ir drain study Please excuse any typographical and/or grammatical errors, dragon dictation was used to complete this note. Rudi Hernandez MD, MS Surgical Oncology 04/21/2024 9:33 AM Levo 750 Flagyl 500 BID Fluco documented in this encounter Plan of Treatment Upcoming Encounters Date Type Department Care Team (Late st Contact Info) Description 05/21/2024 9:00 AM EDT Office [place] [address] Nighat López MD [facility] [place]IN[place] [address] 05/28/2024 8:00 AM EDT Office Visit Hematology/Oncology at [address] [phone] Rodriguez Fowler MD [facility] [place] [address] Sherry Cedillo APRN [address] [place] [address] DR HEMATOLOGY AND ONCOLOGY [place], [place] [id number] 05/28/2024 8:30 AM EDT Infusion Hematology Oncology at [address] [phone] 05/28/2024 9:30 AM EDT Clinical Support Hematology/Oncology at [address] [phone] Leah Rose, RD [facility] DR [place] [address] documented as of this encounter Visit Diagnoses Diagnosis H/O Whipple procedure documented in this encounter Care Teams Sewing Machine Operator Plastic Zipper Relationship Specialty Start Date End Date Olga Hoffman APRN [address] [place] [address] PCP - General Family Medicine 10/30/22 documented as of this encounter
--- OUTSIDE RECORDS SUMMARY | 2024-05-21 01:08 | XMS_ITS | Encounter Summary ---
Author Organization [facility] Address [facility] [place] [address] Care Team Providers Care Tip Tester Name Role Phone Olga Hoffman APRN Primary Care Provider [phone] Encounter Details Date Type Department Care Team (Latest Contact Info) Description 04/01/2024 Travel Social History Tobacco Use Types Packs/Day Years Used Date Smoking Tobacco: Never Smokeless Tobacco: Never Alcohol Use Standard Drinks/Week Comments Not Currently 0 (1 standard drink = 0.6 oz pur e alcohol) [facility] Utilities Answer Date Recorded In the [...] place to sleep or slept in a fci (including now)? No 01/23/2023 Housing Stability Vital [...] were you homeless or living in a fci (including now)? No 03/25/2024 IPV Inpatient Questions [...] 9:00 AM EDT Office [place] [address] Nighat López MD [facility] [place] [address] 05/28/2024 8:00 AM EDT Office Visit Hematology/Oncology at [address] [phone] Rodriguez Fowler MD [facility] [place] [address] Sherry Cedillo APRN [address] [place] [address] DR [place] [address] 05/28/2024 8:30 AM EDT Infusion Hematology Oncology at [address] [phone] 05/28/2024 9:30 AM EDT Clinical Support Hematology/Oncology at [address] [phone] Leah Rose, RD [facility] [place] [address] documented as of this encounter Visit Diagnoses Not on filedocumented in this encounter Care Teams Tip Tester Relationship Specialty Start Date End Date Olga Hoffman APRN [address] [place] [address] PCP - General Family Medicine 10/30/22 documented as of this encounter
--- OUTSIDE RECORDS SUMMARY | 2024-05-21 01:08 | XMS_ITS | Encounter Summary ---
Author Organization [facility] Address [facility] [place] [address] Care Team Providers Care Career Development Specialist Name Role Phone Olga Hoffman APRN Primary Care Provider [phone] Encounter Details Date Type Department Care Team (Late st Contact Info) Description 04/15/2024 9:00 AM EDT Telephone Hematology [place] [address] Donna Dewey, RD [facility] [place] [address] Social History Tobacco Use Types Packs/Day Years Used Date Smoking Tobacco: Never Smokeless Tobacco: Never Alcohol Use Standard Drinks/Week Comments Not Currently 0 (1 standard drink = 0.6 oz pur e alcohol) [facility] Utilities Answer Date Recorded In the past 12 months has [employer], gas, oil, or water [id number] threatened to shut off services in your [...] time in the past 12 m [facility], were you homeless or living [...] encounter Miscellaneous Notes * Telephone Encounter - Donna Dewey, RD - 04/15/2024 8:41 AM EDT Called Charles to check in - states that he is feeling much better this week. Feels energy has picked up/much improved. States that he is eating because he feels he needs to eat/ appetite is fair. He is eating a greater variety of foods. Bowels: moving once a day/ loose. CADE: Dosing ZenPEP 40 : 3 with meals and 1 with snacks. 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 Remains on both Levaquin and Flagyl. A/P: Scheduled to see Dr Fowler next week as well as Dr Hernandez and IR drain check. I will continue tofollow. documented in this encounter Plan of Treatment Upcoming Encounters Date Type Department Care Team (Late st Contact Info) Description 05/21/2024 9:00 AM EDT Office [place] [address] Nighat López MD [facility] [place] [address] 05/28/2024 8:00 AM EDT Office Visit Hematology/Oncology at [address] [phone] Rodriguez Fowler MD [facility] [place] [address] Sherry Cedillo APRN [address] [place] [address] DR HEMATOLOGY AND ONCOLOGY [place], [place] [id number] 05/28/2024 8:30 AM EDT Infusion Hematology Oncology at [address] [phone] 05/28/2024 9:30 AM EDT Clinical Support Hematology/Oncology at [address] [phone] [facility] DR [place] [address] documented as of this encounter Visit Diagnoses Not on filedocumented in this encounter Care Teams Career Development Specialist Relationship Specialty Start Date End Date Olga Hoffman APRN [address] [place] [address] PCP - General Family Medicine 10/30/22 documented as of this encounter
--- OUTSIDE RECORDS SUMMARY | 2024-05-21 01:08 | XMS_ITS | Encounter Summary ---
[place] [address] Care Team Providers Care Tool And Die Technician Name Role Phone Olga Hoffman APRN Primary Care Provider [phone] Encounter Details Date Type Department Care Team (Latest Contact Info) Description 04/08/2024 8:45 AM EDT Laboratory Appointment Lab [address] [place] [address] Duodenal adenocarcinoma Social History Tobacco Use Types Packs/Day Years Used Date Smoking Tobacco: Never Smokeless Tobacco: Never Alcohol Use Standard Drinks/Week Comments Not Currently 0 (1 standard drink = 0.6 oz pur e alcohol) [facility] Utilities Answer Date Recorded In the past [...] any time in the past 12 m [facility], were you homeless or living in a m[facility] (including now)? No 03/25/2024 IPV Inpatient Questions [...] 9:00 AM EDT Office [place] [address] Nighat López MD [facility] [place] [address] 05/28/2024 8:00 AM EDT Office Visit Hematology/Oncology at [address] [phone] Rodriguez Fowler MD [facility] [place] [address] Sherry Cedillo, [address] HEMATOLOGY AND ONCOLOGY [place], [place] [id number] 05/28/2024 8:30 AM EDT Infusion Hematology Oncology at [address] [phone] 05/28/2024 9:30 AM EDT Clinical Support Hematology/Oncology at [address] [phone] Leah Rose, RD [facility] [place] [address] documented as of this encounter Procedures Procedure Name Priority Date/Time Associated Diagnosis Comments AMYLASE LEVEL BODY FLUID Routine 04/08/2024 9:30 AM EDT Duodenal adenocarcinoma HEMOGRAM Routine 04/08/2024 8:17 AM EDT Duodenal adenocarcinoma DIFFERENTIAL, AUTOMATED Routine 04/08/2024 8:17 AM EDT Duodenal adenocarcinoma CBC (WITH DIFF) Routine 04/08/2024 8:17 AM EDT Duodenal adenocarcinoma COMPREHENSIVE METABOLIC PANEL Routine 04/08/2024 8:17 AM EDT Duodenal adenocarcinoma documented in this encounter Results * Amylase Level Body Fluid (04/08/2024 9:30 AM EDT) Amylase, Fluid >7,500 unit/L [facility] Comment: Reference intervals are unavailable for this test in body fluids. Comparison of this result with the concentration in blood, serum, or plasma is recommended. This test has not been cleared by the [place] FDA. Performance characteristics of this test for the analysis of body fluids were determined by [facility] in accordance with CLIA requirements. This laboratory is qualified under CLIA to perform high-complexity testing. Amylase BF Type BASIA Drain [facility] BASIA Drain 04/08/2024 9:30 AM EDT 04/08/2024 9:40 AM EDT Narrative Resulting Agency Comment Spec In Lab Rudi Hernandez MD BODY FLUIDS AND OREN LS ORDERABLES [facility] [place] [address] * (ABNORMAL) Differential, Automated (04/08/2024 8:17 AM EDT) Neutrophil % 73.9 % [facility] Neutrophil Absolute 7.47(H) 1.70 - 6.10 x10(3)/mc L [facility] Lymph % 17.6 % [facility] Lymphocytes Abs 1.8 0.9 - 3.2 x10(3)/mc L [facility] Monocyte % 4.5 % [facility] Monocyte Abs 0.4 0.3 - 0.9 x10(3)/mc L [facility] Eos % 2.6 % [facility] Eosinophils Abs 0.3 0.0 - 0.4 x10(3)/mc L [facility] Basophil % 1.1 % [facility] Baso Absolute 0.1 0.0 - 0.1 x10(3)/mc L [facility] Immature Gran % 0.30 % [facility] Comment: Immature granulocytes(IG's)percentage and absolute count will include metamyelocytes, myelocytes, and promyelocytes. Blood smears from CBCs yielding IG's will be scanned manually for concordance. If this scan disagrees with the automated IG or if promyelocytes are noted, a manual differential will be performed. Immature Gran Absolute 0.03 0.00 - 0.04 x10(3)/mc L [facility] Blood 04/08/2024 8:17 AM EDT 04/08/2024 8:38 AM EDT Narrative Resulting Agency Comment Spec In Lab Gary KIM HEMATOLOGY ORDERABLE S [facility] [place] [address] * (ABNORMAL) Hemogram (04/08/2024 8:17 AM EDT) White Blood Cell 10.1(H) 4.0 - 9.5 x10(3)/mc L [facility] Red Blood Cell 5.86(H) 4.58 - 5.54 x10(6)/mc L [facility] Hemoglobin 14.0 13.7 - 16.5 g/dL [facility] Hematocrit 45.1 40.5 - 48.5 % [facility] Mean Cell Volume 77.0(L) 82.9 - 93.1 fL [facility] Mean Cell Hemoglobin 23.9(L) 27.5 - 32.1 pg [facility] Mean Cell Hemoglobin Concentration 31.0(L) 32.0 - 35.7 g/dL [facility] Platelet 248 145 - 357 x10(3)/mc L [facility] RDW Standard Deviation 47.8(H) 36.0 - 45.0 [facility] RDW coefficient of variation 18.4(H) 11.4 - 13.8 % [facility] Mean Platelet Volume 11.0 7.6 - 12.9 [facility] NRBC% auto 0.0 % [facility] NRBC Absolute 0.000 0.000 - 0.000 x10(3)/mc L [facility] Blood 04/08/2024 8:17 AM EDT 04/08/2024 8:38 AM EDT Narrative Resulting Agency Comment Spec In Lab Gary KIM HEMATOLOGY ORDERABLE S [facility] [place] [address] * (ABNORMAL) Comprehensive metabolic panel (non-fasting) (04/08/2024 8:17 AM EDT) Glucose 183 65 - 199 mg/dL [facility] Comment:Diabetes: >=200 mg/d L plus symptoms Blood Urea Nitrogen 3(L) 10 - 20 mg/dL [facility] Creatinine 0.97 0.80 - 1.50 mg/dL [facility] Sodium 139 135 - 145 mmol/L [facility] Potassium 4.8 3.5 - 5.0 mmol/L [facility] Comment: Please note: ??Patients with WBC >100,000 may have falsely elevated Potassium levels. ??For accurate Potassium quantification in these patients send serum separator tube (gold top) for subsequent determinations. ??Contact the Clinical Chemistry Laboratory if there are any questions. Chloride 100 98 - 107 mmol/L [facility] Carbon Dioxide 26 22 - 31 mmol/L [facility] Anion Gap 13 5 - 15 mmol/L [facility] Calcium 9.3 8.5 - 10.5 mg/dL [facility] Protein, Total 7.3 6.1 - 8.0 g/dL [facility] Albumin 3.6 3.2 - 5.2 g/dL [facility] Aspartate Aminotransferase 26 0 - 39 unit/L [facility] Alanine Aminotransferase 30 0 - 55 unit/L [facility] Alkaline Phosphatase 105 40 - 130 unit/L [facility] Bilirubin, Total 0.3 0.2 - 1.3 mg/dL [facility] Est Glomerular Filtration Rate 96 >=60 mL/min/1. 73 m?? [facility] Comment: This patient's estimated GFR was [...] and symptoms in addition to eGFR. Blood 04/08/2024 8:17 AM EDT 04/08/2024 8:38 AM EDT Narrative Resulting Agency Comment Spec In Lab Rudi Hernandez MD CHEMISTRY ORDERABLES Performing Organization Address City/State/[facility] Co de Phone Number [facility] [place] [address] documented in this encounter Visit Diagnoses Diagnosis Duodenal adenocarcinoma Malignant neoplasm of duodenum documented in this encounter Care Teams Tool And Die Technician Relationship Specialty Start Date End Date Olga Hoffman APRN [address] [place] [address] PCP - General Family Medicine 10/30/22 documented as of this encounter
--- OUTSIDE RECORDS SUMMARY | 2024-05-21 01:08 | XMS_ITS | Encounter Summary ---
Author Organization [facility] Address [facility] [place] [address] Care Team Providers Care Commercial Lawn Specialist Name Role Phone Olga Hoffman APRN Primary Care Provider [phone] Encounter Details Date Type Department Care Team (Late st Contact Info) Description 04/08/2024 10:00 AM EDT Clinical Support [place] [address] Donna Dewey, RD [facility] [place] [address] H/O Whipple procedure Social History Tobacco Use Types Packs/Day Years Used Date Smoking Tobacco: Never Smokeless Tobacco: Never Alcohol Use Standard Drinks/Week Comments Not Currently 0 (1 standard drink = 0.6 oz pur e alcohol) [facility] Utilities Answer Date Recorded In the past 12 months has [employer], gas, oil, or water [employer] threatened to shut off services in your [...] place to sleep or slept in a skilled nursing (including now)? No 01/23/2023 Housing Stability Vital Sign Answer Alexander e Recorded In the last 12 months, was t here a time when you were not able to pay the mortgage or rent on time? No 03/25/2024 In the past 12 months, how m any times have you moved where you were living? 0 03/25/2024 At any time in the past 12 m [facility], were you homeless or living in a skilled nursing (including now)? No 03/25/2024 IPV Inpatient Questions [...] as of this encounter Progress Notes * Donna Dewey, RD - 04/08/2024 10:00 AM EDT Charles Nick is a 48 y.o. 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 Recently discharged from [facility] on 04/01/24 for new peripancreatic abscess on CT/ now with pancreatic drain. States that he feels like he has more strength now. Appetite is fair. Has been experiencing loosestools once a day--but yesterday first semi solid bowel movement. Reports eating nothing for bfast, ate late last night--started with tuna fish and crackers but Chicken Pot Pie looked appetizing to him/ reports eating full serving resulting feeling unwell that evening into the next day. +Early satiety. Nausea: none Dry heaves: none Taste: is not a problem CADE: ZenPEP 40: Dosing 1-2 with meals and snacks, once daily watery stools, bloating and increased gas Drinking water and gatorade Draining 235 ml from panc drain Day to day : lack of energy DM: 10 units of lantus in the morning/ no other DM meds at this time, 7 day average less than 200mg/dL Wt Readings from Last 3 Encounters: 04/08/24 115.5 kg (254 lb 11.2 oz) 03/30/24 119.7 kg (263 lb 14.3 oz) 03/25/24 116.1 kg (256 lb) A/P: Fair appetite, fatigue, and feeling depressed about his recovery. States that he does take medications for depression and does have a counselor but has not seen more recently or since diagnosis.+Early satiety. +DM/ on lantus in am. +CADE/ suspect needs to dose up. Mild weight loss this visit/less 2 pounds. CADE : Zenpep 40 : recommend increase to 3 with meals / 1 with snacks. Discussed with Dr Hernandez / domenico lagos. Discussed patient with Dr Hernandez--to IR now and will come up with plan for further antibiotic therapy. Discussed low MCV - recommend check iron panel and serum ferritin when he returns to clinic. I asked Charles if he could possibly reconnect with his counselor. I will plan to f/u call in another week to check in. documented in this encounter Plan of Treatment Upcoming Encounters Date Type Department Care Team (Late st Contact Info) Description 05/21/2024 9:00 AM EDT Office [place] [address] Nighat López MD [facility] [place] [address] 05/28/2024 8:00 AM EDT Office Visit Hematology/Oncology at [address] [phone] Rodriguez Fowler MD [facility] [place] [address] Sherry Cedillo APRN [address] [place] [address] DR HEMATOLOGY AND ONCOLOGY [place], [place] [id number] 05/28/2024 8:30 AM EDT Infusion Hematology Oncology at [address] [phone] 05/28/2024 9:30 AM EDT Clinical Support Hematology/Oncology at [address] [phone] Leah Rose, ARASH [facility] DR [place] [address] documented as of this encounter Visit Diagnoses Diagnosis H/O Whipple procedure documented in this encounter Care Teams Commercial Lawn Specialist Relationship Specialty Start Date End Date Olga Hoffman APRN [address] [place] [address] PCP - General Family Medicine 10/30/22 documented as of this encounter
--- OUTSIDE RECORDS SUMMARY | 2024-05-21 01:08 | XMS_ITS | Encounter Summary ---
Author Organization Formerly [facility] [place] [address] Care Team Providers Care Scorekeeper Name Role Phone Olga Hoffman APRN Primary Care Provider [phone] Reason for Referral * Diagnostic Test (Routine) - Closed Specialty Diagnoses / Procedures Referred By Contac t Referred To Contact Radiology Diagnoses Duodenal adenocarcinoma Procedures IR Mediport Placement Rodriguez Fowler MD [facility] [place] [address] [facility] [place] [address] Referral ID Status Reason Start Date Expiration Date V isits Requested Visits Authorized [id number] Closed Specialty Service Requested 04/20/2024 10/21/2025 1 1 Reason for Visit * Diagnostic Test (Routine) - Closed Specialty Diagnoses / Procedures Referred By Contac t Referred To Contact Radiology Diagnoses Duodenal adenocarcinoma Procedures IR Mediport Placement Rodriguez Fowler MD [facility] [place] [address] [facility] [place] [address] Referral ID Status Reason Start Date Expiration Date V isits Requested Visits Authorized [id number] Closed Specialty Service Requested 04/20/2024 10/21/2025 1 1 Encounter Details Date Type Department Care Team (Latest Contact Info) Description 04/26/2024 9:17 AM EDT - 04/26/2024 11:59 PM EDT Hospital Encounter Radiology at [facility] [place] [address] Rodriguez Fowler MD [facility] [place] [address] Duodenal adenocarcinoma Discharge Disposition: Home Social History Tobacco Use Types Packs/Day Years Used Date Smoking Tobacco: Never Smokeless Tobacco: Never Alcohol Use Standard Drinks/Week Comments Not Currently 0 (1 standard drink = 0.6 oz pur e alcohol) [facility] Utilities Answer Date Recorded In [...] any time in the past 12 m onths, were you homeless or living in a [...] Sign Reading Time Taken Comments Blood Pressure 138/88 04/26/2024 11:30 AM EDT Pulse 94 04/26/2024 10:55 AM EDT Temperature 36.4 ??C (97.6 ??F) 04/26/2024 11:05 AM E DT Respiratory Rate 14 04/26/2024 11:15 AM EDT Oxygen Saturation 96% 04/26/2024 11:30 AM EDT Inhaled Oxygen Concentration - - Weight - - Height - - Body Mass Index - - documented in this encounter Discharge Instructions * Discharge Instructions* Leanna Olguin RN - 04/26/2024 10:19 AM EDT Images from the original note were not included. [facility] Department of Vascular and Interventional Radiology Discharge Instructions for your Chest Port You have received a ???Power Port?? , which provides access for infusions and blood draws. What makes this a ???Power Port?? is the unique ability to ???power inject?? contrast (intravenous dye) through the port when getting a CT scan, which produces superior images (pictures). Patients who don???t have these special ports need to have an IV started if they need dye injected for their CT scan. Your port is printed with the letters ???CT?? which can be detected by x- ray to identify it as a ???Power Port?? . You will be provided with an ID card stating the carousel attendant and type of port you have. Please carry this with you in a safe place. Bandage: There is a sterile dressing over the port site consisting of small gauze with a clear dressing (Tegaderm or [id number] ). This dressing should be left in place for 48 hours. If the clear dressing becomes loose you should place tape over the edges to secure it in place. Note: If you have steri-strips beneath your dressing, simply allow them to fall off. Do not peel them off. There may be Leggett-knott (skin glue) also, allow this to flake off. Pain: Apply ice bag to site (s) at 30 minute intervals (30 minutes on and 30 minutes off) for 24 hours?? . May use as needed for pain and/or bruising after 24 hours. Bathing: Do not take a shower until 48 hours after your port is placed; after this time you may shower with the dressing in place, then remove it and pat your skin dry. After 48 hours, we recommend that you cover the area with THE AQUA GUARD PROVIDED for 1 week while showering, facing away from theshower stream. You may use a bandaid to cover the site after the 48 hours are up if there is any drainage. No tub baths, whirlpools or swimming for one week following port placement. Flushing the mediport: If your port has not been used, it must be flushed every 30 days. What to expect when your port is accessed: 1. You may feel tenderness the first few times it is accessed but generally this subsides over time. Ask your healthcare provider to use a local anesthetic on the site if discomfort is a problem for you. You may ask for a prescription for a topical cream (EMLA) from your clinician; you may apply athome prior to your appointments, to help numb the skin over your port. 2. The clinician should be wearing sterile gloves and a mask during the access procedure. Anyone inthe room with you should also have a mask on. 3. The skin over and 2 inches around the port should be cleaned with a disinfectant 4. Tell the clinician if you would like the skin numbed (lidocaine) before the access needle is placed. 5. Unless you are unable to take heparin (blood thinner), the port should be injected with a heparin solution before deaccess (at end of each treatment or blood draw). When to call your healthcare provider: If you notice bleeding from the puncture site in your neck, or from the port incision on your chest, you should apply firm pressure over the site for 10-15 minutes, keeping the site covered. Call if you are still bleeding after 10-15 minutes. If you develop pain, redness, drainage or swelling at or around the port site, or the puncture sitein the neck If you develop fever (elevation of more than 2 degrees or greater than 101F) and/or shaking chills When to call the Interventional Radiology Department: Please call with any questions or concerns. If it is during regular office hours, please call [phone]. If it is after regular office hours, or on weekends or holidays, please call [phone] and ask to speak to the Supervisor Ore Dressing reconciliation accountant for Interventional Radiology. XXX You have received medication during your procedure [...] please contact your M. D. Revised 07/01/19 INTERVENTIONAL RADIOLOGY DRAIN CARE INSTRUCTIONS Drains help [...] is during regular office hours, please call [phone]. If it is after regular office hours, or on weekends or holidays, please call [phone] and ask to speak to the Supervisor Ore Dressing reconciliation accountant for Interventional Radiology. XX You have received [...] please contact your M. D. Revised 07/01/19 documented in this encounter Medications at Time of Discharge Medication Sig Dispensed Refills Start Date End Date tyzsal-mwmhdyid-aewbl se (Zenpep) 40,000-126,000- 168,[address] capsule [...] 2 times daily. 30 tablet 03/08/2024 Insulin Sheridan, Disposable, (BD Ultra-Fine Micro Pen Needle) 32 gauge x 1/4 Needle 1 each by [facility].(Non-Drug; Combo Route) route [...] for 14 days. 14 tablet 04/21/2024 05/05/2024 documented as of this encounter Progress Notes * Jaki Cardona RN - 04/26/2024 11:59 PM EDT Follow up call completed for Charles on 04/27/24. Patient states that they have no concerns or questions at this time and was encouraged to call IR Department should any question or concerns arise. * Leanna Olguin RN - 04/26/2024 9:56 AM EDT ANGIO NURSING DATABASE Name: Charles Nick Date of : 1975 AGE: 48 y.o. [address]: [address] [place] [phone] (home) [phone] (work) Mobile: Telephone Information: Referring Provider: Rodriguez Fowler REASON FOR VISIT: Order Questions Answers Where will study be performed? [facility] Radiology [120] To be scheduled Ordering department to coordinate scheduling Prefered insertion location: No Preference Is the patient on anticoagulant / antiplatelet therapy ? No Reason for exam and clinical history: duodenal adenocarcinoma, needs mediport for chemotherapy Exam/Procedure requested: single lumen mediport What labs need to be collected during imaging study? none Planned procedure: Mediport implant - single lumen Labs to be performed day of procedure: No labs Sedation: Moderate (Conscious sedation) Prophylactic antibiotic : None Contrast: No contrast Additional medications for procedure: Lidocaine Planned access site: provider preference Position: Supine Consent: Pending Medications to discontinue [...] IV, Versed 2.5 mg IV Tolerated well 1009 to procedure room 6 via stretcher. Onto table supine. All monitors, [...] documented in this encounter H&P Notes * Sherry Dillard PA - 04/26/2024 9:46 AM EDT INTERVENTIONAL RADIOLOGY FOCUSED H&P: Procedure: Port implant The patient's history and physical exam have been reviewed and completed. There has been no interval change from that of the pre-operative history and physical exam done within the last 30 days. Physical Exam: Cardiovascular: Regular, Normal Pulmonary: Breath sounds clear to auscultation The planned procedure (and sedation plan if appropriate) , its benefits and risks, and alternativeswere discussed with the patient. The patient consented to the procedure. PRE-SEDATION ASSESSMENT: Sedation Plan: moderate (conscious sedation) ASA: 2: Patient with mild systemic disease Mallampati: II: tonsillar pillars are blocked by the tongue Confirm NPO status: Yes History of anesthetic complications: No Current medications reviewed: Yes Allergies reviewed: Yes Source Note - Latonia Oscar PA - 04/20/2024 12:14 PM [...] Prior to Visit Medication Sig Dispense Refill pjfbhx-dynrkrhx-oqiceri (Zenpep) 40,000-126,000- 168,[address] capsule Take [...] 2 times daily. 30 tablet 0 Insulin Sheridan, Disposable, (BD Ultra-Fine Micro Pen Needle) 32 gauge x 1/4 Needle 1 each by [facility].(Non-Drug; Combo Route) route [...] 03/25/2024 CT Guided Drain Pancreatic/Peripancreatic Joe Quintero, [facility] RAD CT SCAN IR BIOPSY LIVER PERCUTANEOUS - NON-FOCAL PARENCHYMA 01/07/2023 IR Biopsy Liver Percutaneous 01/07/2023 Juan Wright MD [facility] INTERVENTIONL RAD IR DRAIN CHECK/CHANGE/REMOVE 04/08/2024 IR Drain Check/Change/Remove 04/08/2024 Juan Wright MD [facility] INTERVENTIONL RAD PRO PART REMV PANC, PROX+REMV DUOD+ANAST N/A 03/01/2024 @CHAKA PROCEDURE (WRVU 52.84) performed by Rudi Hernandez MD at [facility] MAIN OR PRO TRANSFER SKIN PEDICLE FLAP N/A 03/01/2024 TRANSFER, INTERMEDIATE, ANY PEDICLE FLAP, ANY LOCATION (WRVU 4.77) performed by Rudi Hernandez MD at [facility] MAIN OR Social History and Habits: [...] 9:00 AM EDT Office [place] [address] Nighat López MD [facility] DR [place] [address] 05/28/2024 8:00 AM EDT Office Visit Hematology/Oncology at [address] [phone] Rodriguez Fowler MD [facility] [place] [address] Sherry Cedillo [address] HEMATOLOGY AND ONCOLOGY [place], [place] [id number] 05/28/2024 8:30 AM EDT Infusion Hematology Oncology at [address] [phone] 05/28/2024 9:30 AM EDT Clinical Support Hematology/Oncology at [address] [phone] [facility] DR HEMATOLOGY [place] [address] documented as of this encounter Procedures Procedure Name Priority Date/Time Associated Diagnosis Comments IR MEDIPORT PLACEMENT Routine 04/26/2024 11:04 AM EDT Duodenal adenocarcinoma POC, GLUCOSE Routine 04/26/2024 9:51 AM EDT documented in this encounter Results * IR Mediport Placement (04/26/2024 11:04 AM EDT) Anatomical Region Laterality Modality X-Ray Angiograph y Narrative 04/26/2024 11:38 AM EDT Interventional Radiology Procedure Note Procedure: Venous chest port implant Indication: Duodenal adenocarcinoma, durable long term central venous access for chemotherapy Procedure summary: [...] * POC, GLUCOSE (04/26/2024 9:51 AM EDT) Glucometer, POC 178 65 - 199 mg/dL 04/26/2024 9:52 AM EDT [facility] Comment:Supplemental ranges: <140 mg/dL before meals <180 mg/dL all other times of the day. Blood CAPILLARY BLOOD / Unknown 04/26/2024 9:51 AM EDT 04/26/2024 9:52 AM EDT Rodriguez Fowler MD POINT OF CARE TEST O RDERABLES [facility] [place] [address] documented in this encounter Visit Diagnoses Diagnosis Duodenal adenocarcinoma Malignant neoplasm of duodenum documented in this encounter Administered Medications Inactive Administered Medications - up to 3 most recent administrations Medication Order MAR Action Action Date Dose Rate Site fentaNYL (pf) (50 mcg/mL) multi-dose injection 25-50 mcg 25-50 mcg, Intravenous, EVERY 3 MIN PRN, Starting on Fri04/26/24 at 0930, Until Fri04/26/24 at 1142, Pain, per unit protocol, For use in Interventional Radiology (IR) only for procedural sedation with direct provider supervision and verbal order. - Start dose: 50 mcg (reduce dose to 25 mcg if history of sedation sensitivity). - Titration dose: 25-50 mcg IV, (based on patient response) every 3 minutes PRN to maintain procedural pain less than 2 per Pain Scale. Maximum dose: 50 mcg/dose, 250 mcg/hour, Angio/IR (Intra-Procedure), Routine Given 04/26/2024 10:40 AM EDT 25 mcg Given 04/26/2024 10:30 AM EDT 25 mcg Given 04/26/2024 10:25 AM EDT 25 mcg lidocaine (Xylocaine) 1% (10 mg/mL) injection 10 mg 10 mg, Subcutaneous, ONCE, 1 dose, On Fri04/26/24 at 1000, For use in Interventional Radiology (IR) only for procedure with direct provider supervision and verbal order., Angio/IR (Intra-Procedure), Routine Given 04/26/2024 10:36 AM EDT 10 mg lidocaine-EPINEPHrine (1% - 1:100,000) injection 20 mL 20 mL, Intradermal, ONCE, 1 dose, On Fri04/26/24 at 1000, For use in Interventional Radiology (IR) only for procedure with direct provider supervision and verbal order. *This order is NOT a Venous Ablation Order / Dose., Angio/IR (Intra-Procedure), Routine Given 04/26/2024 10:41 AM EDT 20 mLs midazolam (pf) (Versed) (1 mg/mL) multi-dose injection 0.5-1 mg 0.5-1 mg, Intravenous, EVERY 3 MIN PRN, Starting on Fri04/26/24 at 0930, Until Fri04/26/24 at 1142, Sedation, For use in Interventional Radiology (IR) only for procedural sedation with direct provider supervision and verbal order. - Start dose: 1 mg (Reduce dose to 0.5 mg if history of sedation sensitivity). - Titration dose: 0.5 mg - 1 mg (based on patient response) every 3 minutes PRN to obtain RASS score of -3. Maximum dose: 1 mg/dose, 5 mg/hour., Angio/IR (Intra-Procedure), Routine Given 04/26/2024 10:40 AM EDT 0.5 mg Given 04/26/2024 10:35 AM EDT 0.5 mg Given 04/26/2024 10:25 AM EDT 0.5 mg documented in this encounter Care Teams Scorekeeper Relationship Specialty Start Date End Date Olga Hoffman APRN [address] [place] [address] PCP - General Family Medicine 10/30/22 documented as of this encounter
--- OUTSIDE RECORDS SUMMARY | 2024-05-21 01:08 | XMS_ITS | Encounter Summary ---
Author Organization [facility] [place] [address] Care Team Providers Care Tool Machine Shop Supervisor Name Role Phone Olga Hoffman APRN Primary Care Provider [phone] Reason for Referral * Diagnostic Test (Routine) - Closed Specialty Diagnoses / Procedures Referred By Contac t Referred To Contact Radiology Diagnoses Duodenal adenocarcinoma Procedures IR Mediport Placement Rodriguez Fowler MD [facility] [place] [address] [facility] [place] [address] Referral ID Status Reason Start Date Expiration Date V isits Requested Visits Authorized [id number] Closed Specialty Service Requested 04/20/2024 10/21/2025 1 1 Reason for Visit * Reason Comments Establish Care * Consultation (Routine) - Closed Specialty Diagnoses / Procedures Referred By Contac t Referred To Contact Hematology and Oncology Diagnoses Duodenal adenocarcinoma Rudi Hernandez MD [facility] [place] [address] [facility] Hem Onc [address] [place] [address] Referral ID Status Reason Start Date Expiration Date V isits Requested Visits Authorized [id number] Closed Consult, Test & Treat 03/11/2024 03/11/2025 1 1 Encounter Details Date Type Department Care Team (Latest Contact Info) Description 04/20/2024 11:00 AM EDT Office Visit Hematology and Oncology at [facility] [place] [address] Rodriguez Fowler MD [facility] [place] [address] Duodenal adenocarcinoma Social History Tobacco Use Types Packs/Day Years Used Date Smoking Tobacco: Never Smokeless Tobacco: Never Alcohol Use Standard Drinks/Week Comments Not Currently 0 (1 standard drink = 0.6 oz pur e alcohol) [facility] Utilities Answer Date Recorded In [...] any time in the past 12 m [facility], were you homeless or living in a [...] Sign Reading Time Taken Comments Blood Pressure 123/93 04/20/2024 11:22 AM EDT Pulse 87 04/20/2024 11:22 AM EDT Temperature 36.4 ??C (97.5 ??F) 04/20/2024 1 1:22 AM EDT Respiratory Rate 17 04/20/2024 11:2 2 AM EDT Oxygen Saturation 98% 04/20/2024 11: 22 AM EDT Inhaled Oxygen Concentration - - Weight 116.9 kg (257 lb 11.5 oz) 2023 11:22 AM EDT Height 189.7 cm (6' 2.69) 04/20/2024 1 1:22 AM EDT Body Mass Index 32.48 04/20/2024 11:22 AM EDT documented in this encounter Progress Notes * Rodriguez Fowler MD - 04/20/2024 11:00 AM EDT Subjective Patient ID: Charles Nick [...] without imunotherapy. 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 6.Obstructive sleep apnea: [...] is on antibiotics with levaquin and flagyl. Charles is accompanied to clinic today by his Life Partner Jenelle Reyna. Jenelle is a nurse. He is doing ok, anxious. He is still on antibiotics. Jenelle says he has about a week left of treatment. He still has a pancreatic drain. The drainage had decreased to about 30 ml per day but yesterday increased. It has but back again today. He is due for another drain check. His appetite is low but he pushes himself to eat. About two weeks ago he started pancreatic enzymes. He has had less gassiness and bloating. His stools have been loose since the surgery, generally watery with small chunks. His strength and energy are improving, not back to baseline. His BS's have been in the 180-200 range. He has symptoms of neuropathy from below the knee to the feet in both LE. He has mild symptoms in his fingertips. 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 Mat GM had cancer, unsure of type Review of Systems Objective Physical Exam Vitals reviewed. Constitutional: General: He is not in acute distress. HENT: Head: Normocephalic and atraumatic. Mouth/Throat: Pharynx: Oropharynx is clear. No oropharyngeal exudate. Eyes: General: No scleral icterus. Cardiovascular: Rate and Rhythm: Normal rate and regular rhythm. Pulmonary: Effort: Pulmonary effort is normal. No respiratory distress. Breath sounds: No wheezing or rales. Abdominal: General: There is no distension. Palpations: There is no mass. Tenderness: There is no abdominal tenderness. There is no guarding. Musculoskeletal: General: No swelling. Lymphadenopathy: Cervical: No cervical adenopathy. Upper Body: Right upper body: No supraclavicular adenopathy. Left upper body: No supraclavicular adenopathy. Skin: General: Skin is warm and dry. Findings: No rash. Neurological: General: No focal deficit present. Mental Status: He is alert. Coordination: Coordination normal. Psychiatric: Mood and Affect: Mood normal. 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 Form Dr. Hernandez's note Edu experienced back pain [...] The pathology showed poorly differentiated adenocarcinoma, pT3. 2 LN's were involved, pN1. The margins of resection were negative. The post-operative course has been complicated by a pancreatic leak and peripancreatic abscess for which she was admitted on 03/24. A drain was placed and he is on antibiotics with levaquin and flagyl. We discussed adjuvant therapy. In general adjuvant therapy is recommended for all patients with LN positive disease, in part extrapolating from the benefits of adjuvant therapy in patients with stageIII colon cancer. Standard therapy would consist of 3-6 months of a flouropyrimidine and oxaliplatin containing regimen, ie Folfox or Capox. We talked about Capox vs Folfox. He has significant baseline neuropathy which is a significant concern. The plan we discussed is for Folfox with reduced dose oxaliplatin. I would plan to stop the oxaliplatin after cycle 6-8 to try to avoid senior living complications of neuropathy. I will also send a message to Dr. Ayala to be sure he doesn't feel there is a role for radiation in the adjuvant setting. We reviewed the potential side effects of therapy, including n/v, stomatitis, diarrhea, dehydration, myelosuppression with associated risks of bleeding, infection and dose delays, fatigue peripheral neuropathy which may be exacerbated by cold exposure but which may be cumulative or permanent even in the absence of cold, angina/ [place], hepatic and renal dysfunction, hypersensitivity reactions and others. He was given an informational handout regarding the regimen. A referral will be made for mediport placement. Blood will be drawn today for PGX testing to make sure he doesn't have a DPYD variant that would put him at high risk of severe fluoropyrimidine toxicity. This will need to be reviewed prior to beginning therapy. documented in this encounter Plan of Treatment Upcoming Encounters Date Type Department Care Team (Late st Contact Info) Description 05/21/2024 9:00 AM EDT Office [place] [address] Nighat López MD [facility] [place] [address] 05/28/2024 8:00 AM EDT Office Visit Hematology/Oncology at [address] [phone] Rodriguez Fowler MD [facility] [place] [place] [address] Sherry Cedillo APRN [address] [place] [address] DR HEMATOLOGY AND ONCOLOGY [place], [place] [phone] 05/28/2024 8:30 AM EDT Infusion Hematology Oncology at [address] [phone] 05/28/2024 9:30 AM EDT Clinical Support Hematology/Oncology at [address] [phone] [facility] [place] [address] Scheduled Orders Name Type Priority Associated Diagnoses Orde r Schedule CBC (with Diff) Lab Routine Duodenal adenocarcinoma Every 2 Weeks for 12 Occurrences starting 04/20/2024 until 04/20/2025 Comprehensive metabolic panel Lab Routine Duodenal adenocarcinoma Every 2 Weeks for 12 Occurrences starting 04/20/2024 until 04/20/2025 documented as of this encounter Results * IR Mediport Placement (04/26/2024 11:04 AM EDT) Anatomical Region Laterality Modality X-Ray Angiograph y Narrative 04/26/2024 11:38 AM EDT Interventional Radiology Procedure Note Procedure: Venous chest port implant Indication: Duodenal adenocarcinoma, durable snf central venous access for chemotherapy Procedure summary: [...] Rodriguez Fowler MD IMG IR ORDERABLES * CEA (04/20/2024 12:39 PM EDT) Carcinoembryonic Antigen 1.1 <=3.8 ng/ml 04/20/2024 1:[address] [facility] Comment: Some smokers may have elevated CEA, generally < 5.5 ng/mL. This result was generated using a Amanda Bonifacio immunoassay. ??Results obtained from other methods or manufacturers cannot be used interchangeably with this method. Blood VENOUS BLOOD SPECIMEN / Unknown Venipuncture / Unknown 04/20/2024 12:39 PM EDT 04/20/2024 12:39 PM EDT Rodriguez Fowler MD CHEMISTRY ORDERABLES 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
--- OUTSIDE RECORDS SUMMARY | 2024-05-21 01:08 | XMS_ITS | Encounter Summary ---
Author Organization [facility] [place] [address] Care Team Providers Care Sustain Engineer Name Role Phone Olga Hoffman APRN Primary Care Provider [phone] Reason for Referral * Diagnostic Test (Routine) - Closed Specialty Diagnoses / Procedures Referred By Contac t Referred To Contact Radiology Diagnoses H/O Whipple procedure Procedures CT Abdomen & Pelvis w Contrast Rudi Hernandez MD [facility] [place] [address] [facility] [place] [address] Referral ID Status Reason Start Date Expiration Date V isits Requested Visits Authorized [id number] Closed Specialty Service Requested 04/08/2024 10/09/2025 1 1 Encounter Details Date Type Department Care Team (Late st Contact Info) Description 04/08/2024 9:30 AM EDT Office [place] [address] Rudi Hernandez MD [facility] [place] [address] H/O Whipple procedure Social History Tobacco Use Types Packs/Day Years Used Date Smoking Tobacco: Never Smokeless Tobacco: Never Alcohol Use Standard Drinks/Week Comments Not Currently 0 (1 standard drink = 0.6 oz pur e alcohol) [facility] Utilities Answer Date Recorded In [...] place to sleep or slept in a custodial (including now)? No 01/23/2023 Housing Stability Vital Sign Answer Alexander e Recorded In the last 12 months, was t here a time when you were not able to pay the mortgage or rent on time? No 03/25/2024 In the past 12 months, how m any times have you moved where you were living? 0 03/25/2024 At any time in the past 12 m [facility], were you homeless or living in a custodial (including now)? No 03/25/2024 IPV Inpatient Questions [...] Sign Reading Time Taken Comments Blood Pressure 122/85 04/08/2024 9:25 AM EDT Pulse 109 04/08/2024 9:25 AM EDT notified Temperature 36.3 ??C (97.3 ??F) 04/08/2024 9 :25 AM EDT Respiratory Rate 16 04/08/2024 9:25 AM EDT Oxygen Saturation 100% 04/08/2024 9:2 5 AM EDT Inhaled Oxygen Concentration - - Weight 115.5 kg (254 lb 11. 2 oz) 04/08/2024 9:25 AM EDT Height - - Body Mass Index 32.7 03/25/2024 6:25 AM EDT documented in this encounter Progress Notes * Rudi Hernandez MD - 04/08/2024 9:30 AM EDT Department of General Surgery Surgical [...] Nick is now 2 weeks postop from [place]. He has been home for over a [...] cramps, he is also having bowel movements. Interval: Charles Nick was admitted with an abscess/pancreas leak on 03/24 and was taken for an IRdrain placement. He was discharged on 04/01/24. He presents today for a drain study. He reports thathe is eating better at home. His nausea is improved. He denies fevers/chills. He does have loose stools. Physical Exam: Temp: [36.3 ??C (97.3 ??F)] Heart Rate: [109] Resp: [14-16] BP: (122-155)/(85-98) SpO2: [98 %-100 %] Heart Rate from SpO2: [94 bpm] General: NAD, resting comfortably, pleasant, conversant HEENT: NCAT Pulm: non labored breathing Abd: soft, nontender, nondistended. Drain in place with thin serous appearing output Skin: warm, dry Ext: no cyanosis, cap refill <2sec Neuro: grossly intact, nonfocal Assessment and Plan: Charles Nick is a 48-year-old gentleman with a history of duodenal adenocarcinoma status post Whipple. We discussed that his WBC is mildly elevated to 10. I got a CT scan for today prior to his kendra study, which looks like the fluid collection is well drained. I did send a drain amylase which isstill high. Representing a pancreas leak. Edu has been recording volume output and it is in [id number] range. I discussed this with interventional radiology and went down to IR for the drain study. At this point the drain was left in place without repositioning since it is adequately draining. We would leave it there for the next 2 weeks. If the volume does not decrease then we would consider anadmission for TPN with the goal to decrease pancreatic stimulation and to facilitate closure. Alternatively IR may also consider downsizing the drain removing the drain slightly away to allow for closure. I discussed this with Edu's partner Claritza over the phone. While the drain is placed we will continue antibiotics. I spoke to Dr. Neena Proctor and she recommended switching from Augmentin to Levaquin and Flagyl. I will send this prescription to his local pharmacy. We also discussed when and if we should transition to IV antibiotics. Given that Edu clinically is doing better than kylee we will hold off on that transition at this point. I did check LFTs which are normal. I will plan on rechecking labs in 2 weeks when he has a drain study and we will also order an EKG for QTc monitoring given that he is on multiple QTc prolonging medications at this point. - rtc in 2 weeks, day of ir drain study Please excuse any typographical and/or grammatical errors, dragon dictation was used to complete this note. Rudi Hernandez MD, MS Surgical Oncology 04/08/2024 1:26 PM Levo 750 Flagyl 500 BID Fluco documented in this encounter Plan of Treatment Upcoming Encounters Date Type Department Care Team (Late st Contact Info) Description 05/21/2024 9:00 AM EDT Office Visit [place] [address] Nighat López MD [facility] [place] [address] 05/28/2024 8:00 AM EDT Office Visit Hematology/Oncology at [address] [phone] Rodriguez Fowler MD [facility] [place] [address] Sherry Cedillo APRN [address] [place] [address] DR HEMATOLOGY AND ONCOLOGY [place], [place] [phone] 05/28/2024 8:30 AM EDT Infusion Hematology Oncology at [address] [phone] 05/28/2024 9:30 AM EDT Clinical Support Hematology/Oncology at [address] [phone] Leah Rose, [facility] DR HEMATOLOGY [place] [address] Scheduled Orders Name Type Priority Associated Diagnoses Orde r Schedule EKG 12 Lead ECG Routine H/O Whipple procedure Expected: 04/22/2024, Expires: 10/22/2024 documented as of this encounter Results * Ferritin (04/20/2024 12:39 PM EDT) Ferritin 55 31 - 409 ng/ml 04/20/2024 1:24 PM EDT [facility] Blood VENOUS BLOOD SPECIMEN / Unknown Venipuncture / Unknown 04/20/2024 12:39 PM EDT 04/20/2024 12:39 PM EDT Rudi Hernandez MD CHEMISTRY ORDERABLES [facility] [place] [address] * (ABNORMAL) Iron and TIBC (04/20/2024 12:39 PM EDT) Pathologist [facility] Iron 49 45 - 160 mcg/dL 04/20/2024 5:03 PM EDT [facility] Unsaturated Iron Binding Capacity 184 110 - 370 mcg/dL 04/20/2024 5:03 PM EDT [facility] TIBC 233(L) 250 - 450 mcg/dL 04/20/2024 5:03 PM EDT [facility] Iron Saturation 21 20 - 50 % 5:03 PM EDT [facility] Blood VENOUS BLOOD SPECIMEN / Unknown Venipuncture / Unknown 04/20/2024 12:39 PM EDT 04/20/2024 12:39 PM EDT Rudi Hernandez MD CHEMISTRY ORDERABLES [facility] [place] [address] * CT Abdomen & Pelvis w Contrast (04/08/2024 11:27 AM EDT) Pathologist [facility] WORKSTATION ID [id number] DH RAD Anatomical Region Laterality Modality Abdomen, Pelvis [...] who have questions please contact the health hearing healthcare practitioner that requested your imaging first. ? Electronically signed by: Flakito Cummings MD, [facility] ([phone]), at 04/09/2024 10:10 AM Narrative 04/09/2024 10:10 [...] patients who have questions please contactthe health hearing healthcare practitioner that requested your imaging first. Electronically signed by: Flakito Cummings MD, [facility]([phone]), at 04/09/2024 10:10 AM Rudi Hernandez MD IMG CT ORDERABLES documented in this encounter Visit Diagnoses Diagnosis H/O Whipple procedure H/O Whipple procedure documented in this encounter Care Teams Sustain Engineer Relationship Specialty Start Date End Date Olga Hoffman APRN [address] [place] [address] PCP - General Family Medicine 10/30/22 documented as of this encounter
--- OUTSIDE RECORDS SUMMARY | 2024-05-21 01:08 | XMS_ITS | Encounter Summary ---
[place] [address] Care Team Providers Care Commercial Food Instructor Name Role Phone Olga Hoffman APRN Primary Care Provider [phone] [phone] Encounter Details Date Type Department Care Team (Latest Contact Info) Description 04/20/2024 12:29 PM EDT - 04/20/2024 11:59 PM EDT Hospital Encounter Hematology [place] [address] Duodenal adenocarcinoma; H/O Whipple procedure Discharge Disposition: Home Social History Tobacco Use Types Packs/Day Years Used Date Smoking Tobacco: Never Smokeless Tobacco: Never Alcohol Use Standard Drinks/Week Comments Not Currently 0 (1 standard drink = 0.6 oz pur e alcohol) [facility] Utilities Answer Date Recorded In the past 12 months has e electric, gas, oil, or water [employer] threatened to shut off services in your [...] any time in the past 12 m [facility], were you homeless or living in a [...] Sig Dispensed Refills Start Date End Date lkhvel-cxeikqyu-havbl se (Zenpep) 40,000-126,000- 168,[address] capsule [...] 2 times daily. 30 tablet 03/08/2024 Insulin Rodessa, Disposable, (BD Ultra-Fine Micro Pen Needle) 32 gauge x 1/4 Needle 1 each by [facility].(Non-Drug; Combo Route) route 2 times daily. 300 [...] for 14 days. 28 tablet 04/08/2024 04/21/2024 documented as of this encounter Plan of Treatment Upcoming Encounters Date Type Department Care Team (Late st Contact Info) Description 05/21/2024 9:00 AM EDT Office [place] [address] Nighat López MD [facility] [place] [address] 05/28/2024 8:00 AM EDT Office Visit Hematology/Oncology at [address] [phone] Rodriguez Fowler MD [facility] [place] [address] Sherry Cedillo APRN [address] [place] [address] DR HEMATOLOGY AND ONCOLOGY [place], [place] [id number] 05/28/2024 8:30 AM EDT Infusion Hematology Oncology at [address] [phone] 05/28/2024 9:30 AM EDT Clinical Support Hematology/Oncology at [address] [phone] Leah Rose, ARASH [facility] [place] [address] documented as of this encounter Procedures Procedure Name Priority Date/Time Associated Diagnosis Comments PGX ONCOLOGY Routine 04/20/2024 12:39 PM EDT Duodenal adenocarcinoma IRON AND TIBC Routine 04/20/2024 12:39 PM EDT H/O Whipple procedure CBC (WITH DIFF) Routine 04/20/2024 12:39 PM EDT Duodenal adenocarcinoma PHOSPHORUS Routine 04/20/2024 12:39 PM EDT Duodenal adenocarcinoma MAGNESIUM Routine 04/20/2024 12:39 PM EDT Duodenal adenocarcinoma FERRITIN Routine 04/20/2024 12:39 PM EDT H/O Whipple procedure CEA Routine 04/20/2024 12:39 PM EDT Duodenal adenocarcinoma COMPREHENSIVE METABOLIC PANEL Routine 04/20/2024 12:39 PM EDT Duodenal adenocarcinoma documented in this encounter Results * CEA (04/20/2024 12:39 PM EDT) [facility] Carcinoembryonic Antigen 1.1 <=3.8 ng/ml 04/20/2024 1:24 PM EDT [facility] Comment: Some smokers may have elevated CEA, generally < 5.5 ng/mL. This result was generated using a Amanda Bonifacio immunoassay. ??Results obtained from other methods or manufacturers cannot be used interchangeably with this method. Blood VENOUS BLOOD SPECIMEN / Unknown Venipuncture / Unknown 04/20/2024 12:39 PM EDT 04/20/2024 12:39 PM EDT Rodriguez Fowler MD CHEMISTRY ORDERABLES Performing Organization Address City/[facility]/ZIP Co de Phone Number [facility] [place] [address] * PGx Oncology (04/20/2024 12:39 PM EDT) Pathologist [facility] NGS Report Status Normal 04/27/2024 4:56 PM EDT [facility] Blood VENOUS BLOOD SPECIMEN / Unknown Venipuncture / Unknown 04/20/2024 12:39 PM EDT 04/20/2024 12:39 PM EDT Rodriguez Fowler MD MOLECULAR ORDERABLES [facility] [place] [address] * Ferritin (04/20/2024 12:39 PM EDT) Ferritin 55 31 - 409 ng/ml 04/20/2024 1:24 PM EDT [facility] Blood VENOUS BLOOD SPECIMEN / Unknown Venipuncture / Unknown 04/20/2024 12:39 PM EDT 04/20/2024 12:39 PM EDT Rudi Hernandez MD CHEMISTRY ORDERABLES [facility] [place] [address] * (ABNORMAL) Iron and TIBC (04/20/2024 12:39 PM EDT) Iron 49 45 - 160 mcg/dL 04/20/2024 5:03 PM EDT [facility] Unsaturated Iron Binding Capacity 184 110 - 370 mcg/dL 04/20/2024 5:03 PM EDT [facility] TIBC 233(L) 250 - 450 mcg/dL 04/20/2024 5:03 PM EDT [facility] Iron Saturation 21 20 - 50 % 5:03 PM EDT [facility] Blood VENOUS BLOOD SPECIMEN / Unknown Venipuncture / Unknown 04/20/2024 12:39 PM EDT 04/20/2024 12:39 PM EDT Rudi Hernandez MD CHEMISTRY ORDERABLES [facility] [place] [address] * Phosphorus (04/20/2024 12:39 PM EDT) Phosphorus 3.1 2.5 - 4.5 mg/dL 04/20/2024 1:28 PM EDT [facility] Blood VENOUS BLOOD SPECIMEN / Unknown Venipuncture / Unknown 04/20/2024 12:39 PM EDT 04/20/2024 12:39 PM EDT Rudi Hernandez MD CHEMISTRY ORDERABLES [facility] [place] [address] * Magnesium (04/20/2024 12:39 PM EDT) Magnesium 0.74 0.69 - 1.07 mMol/L 04/20/2024 1:28 PM EDT [facility] Blood VENOUS BLOOD SPECIMEN / Unknown Venipuncture / Unknown 04/20/2024 12:39 PM EDT 04/20/2024 12:39 PM EDT Rudi Hernandez MD CHEMISTRY ORDERABLES Performing Organization Address City/[facility]/ZIP Co de Phone Number [facility] [place] [address] * (ABNORMAL) Comprehensive metabolic panel (04/20/2024 12:39 PM EDT) Glucose 204(H) 65 - 199 mg/dL 04/20/2024 1:28 PM EDT [facility] Comment:Glucose Concentratio n >=200 mg/dL plus symptoms is consistent with Diabetes Mellitus. Blood Urea Nitrogen 5(L) 10 - 20 mg/dL 04/20/2024 1:28 PM EDT [facility] Creatinine 0.82 0.80 - 1.50 mg/dL 04/20/2024 1:28 PM EDT [facility] Sodium 141 135 - 145 mMol/L 04/20/2024 1:28 PM EDT [facility] Potassium 4.1 3.5 - 5.0 mMol/L 04/20/2024 1:28 PM EDT [facility] Chloride 104 98 - 107 mMol/L 04/20/2024 1:28 PM EDT [facility] Carbon Dioxide 27 22 - 31 mMol/L 04/20/2024 1:28 PM EDT [facility] Anion Gap 10 5 - 15 mMol/L 04/20/2024 1:28 PM [facility] Calcium 9.2 8.5 - 10.5 mg/dL 04/20/2024 1:28 PM [facility] Protein, Total 6.5 6.1 - 8.0 g/dL 04/20/2024 1:28 PM [facility] Albumin 3.5 3.2 - 5.2 g/dL 04/20/2024 1:28 PM [facility] Aspartate Aminotransferase 15 <=39 unit/L 04/20/2024 1:28 PM [facility] Alanine Aminotransferase 14 0 - 55 unit/L 04/20/2024 1:28 PM [facility] Alkaline Phosphatase 71 40 - 130 unit/L 04/20/2024 1:28 PM [facility] Bilirubin, Total 0.3 <=1.3 mg/dL 04/20/2024 1:28 PM [facility] Est Glomerular Filtration Rate - Male 108 mL/min/1. 73 m?? 04/20/2024 1:28 PM [facility] Comment: This patient's estimated [...] Foundation Fasting Status No 04/20/2024 1:28 PM [facility] Blood VENOUS BLOOD SPECIMEN / Unknown Venipuncture / Unknown 04/20/2024 12:39 PM EDT 04/20/2024 12:39 PM EDT Rudi Hernandez MD CHEMISTRY ORDERABLES [facility] [place] [address] * (ABNORMAL) CBC (with Diff) (04/20/2024 12:39 PM EDT) White Blood Cell 7.18 x10(3)/mc L 04/20/2024 12:49 PM EDT [facility] Red Blood Cell 5.26 4.58 - 5.54 x10(6)/mc L 04/20/2024 12:49 PM EDT [facility] Hemoglobin 12.6(L) 13.7 - 16.5 g/dL 04/20/2024 12:49 PM EDT [facility] Hematocrit 40.5 40.5 - 48.5 % 04/20/2024 12:49 PM EDT [facility] Mean Cell Volume 77.0(L) 82.9 - 93.1 fL 04/20/2024 12:49 PM EDT [facility] Mean Cell Hemoglobin 24.0(L) 27.5 - 32.1 pg 04/20/2024 12:49 PM EDT [facility] Mean Cell Hemoglobin Concentration 31.1(L) 32.0 - 35.7 g/dL 04/20/2024 12:49 PM EDT [facility] Platelet 178 145 - 357 x10(3)/mc L 04/20/2024 12:49 PM EDT [facility] Mean Platelet Volume 10.5 7.6 - 12.9 fL 04/20/2024 12:49 PM EDT [facility] RDW Standard Deviation 48.7(H) 36.0 - 45.0 fL 04/20/2024 12:49 PM EDT [facility] RDW coefficient of variation 17.7(H) 11.4 - 13.8 % 04/20/2024 12:49 PM EDT [facility] NRBC% auto 0.0 % 04/20/2024 12:49 PM EDT [facility] NRBC Absolute 0.00 0.00 - 0.00 x10(3)/mc L 04/20/2024 12:49 PM EDT [facility] Neutrophil % 66.4 % 04/20/2024 12:49 PM EDT [facility] Neutrophil Absolute (ANC) - Automated 4.77 1.70 - 6.10 x10(3)/mc L 04/20/2024 12:49 PM EDT [facility] Lymph % 20.8 % 04/20/2024 12:49 PM EDT [facility] Lymph Absolute 1.49 0.90 - 3.20 x10(3)/mc L 04/20/2024 12:49 PM EDT [facility] Monocyte % 6.1 % 04/20/2024 12:49 PM EDT [facility] Monocyte Absolute 0.44 0.30 - 0.90 x10(3)/mc L 04/20/2024 12:49 PM EDT [facility] Eos % 5.3 % 04/20/2024 12:49 PM EDT [facility] Eos Absolute 0.38 0.00 - 0.40 x10(3)/mc L 04/20/2024 12:49 PM EDT [facility] Basophil % 0.6 % 04/20/2024 12:49 PM EDT [facility] Baso Absolute 0.04 0.00 - 0.10 x10(3)/mc L 04/20/2024 12:49 PM EDT [facility] Immature Gran % 0.8 % 12:49 PM EDT [facility] Immature Gran Absolute 0.06(H) 0.00 - 0.04 x10(3)/mc L 04/20/2024 12:49 PM EDT [facility] Blood VENOUS BLOOD SPECIMEN / Unknown Venipuncture / Unknown 04/20/2024 12:39 PM EDT 04/20/2024 12:39 PM EDT Rudi Hernandez MD [place] [address] documented in this encounter Visit Diagnoses Diagnosis Duodenal adenocarcinoma Malignant neoplasm of duodenum H/O Whipple procedure documented in this encounter Care Teams Commercial Food Instructor Relationship Specialty Start Date End Date Olga Hoffman APRN [address] [place] [address] PCP - General Family Medicine 10/30/22 documented as of this encounter
--- OUTSIDE RECORDS SUMMARY | 2024-05-21 01:08 | XMS_ITS | Encounter Summary ---
Author Organization [facility] [place] [address] Care Team Providers Care Crop Puller Name Role Phone Olga Hoffman APRN Primary Care Provider [phone] Encounter Details Date Type Department Care Team (Late st Contact Info) Description 04/14/2024 Telephone Neph[place] [address] Shahida Joshi Social History Tobacco Use Types Packs/Day Years Used Date Smoking Tobacco: Never Smokeless Tobacco: Never Alcohol Use Standard Drinks/Week Comments Not Currently 0 (1 standard drink = 0.6 oz pur e alcohol) [facility] Utilities Answer Date Recorded In [...] place to sleep or slept in a intermediate (including now)? No 01/23/2023 Housing Stability Vital [...] time in the past 12 m [facility], were you homeless or living in a intermediate (including now)? No 03/25/2024 IPV Inpatient Questions [...] encounter Miscellaneous Notes * Telephone Encounter - Shahida Joshi - 04/14/2024 9:14 AM EDT LM for patient to call and schedule a follow up appointment. Will send out reminder letter documented in this encounter Plan of Treatment Upcoming Encounters Date Type Department Care Team (Late st Contact Info) Description 05/21/2024 9:00 AM EDT Office [place] [phone] Nighat López MD [facility] [place] [address] 19 05/28/2024 8:00 AM EDT Office Visit Hematology/Oncology at [address] [phone] Rodriguez Fowler MD [facility] [place] [address] Sherry Cedillo APRN [address] [place] [address] DR HEMATOLOGY AND ONCOLOGY [place], [place] [address] 05/28/2024 8:30 AM EDT Infusion Hematology Oncology at [address] [phone] 05/28/2024 9:30 AM EDT Clinical Support Hematology/Oncology at [address] [phone] [facility] DR [place] [address] documented as of this encounter Visit Diagnoses Not on filedocumented in this encounter Care Teams Crop Puller Relationship Specialty Start Date End Date Olga Hoffman APRN [address] [place] [address] PCP - General Family Medicine 10/30/22 documented as of this encounter
--- OUTSIDE RECORDS SUMMARY | 2024-05-21 01:08 | XMS_ITS | Encounter Summary ---
Author Organization [facility] Address [facility] [place] [address] Care Team Providers Care Signal Technician Name Role Phone Olga Hoffman APRN Primary Care Provider [phone] Encounter Details Date Type Department Care Team (Latest Contact Info) Description 04/07/2024 Travel Social History Tobacco Use Types Packs/Day Years Used Date Smoking Tobacco: Never Smokeless Tobacco: Never Alcohol Use Standard Drinks/Week Comments Not Currently 0 (1 standard drink = 0.6 oz pur e alcohol) [facility] Utilities Answer Date Recorded In the past [...] place to sleep or slept in a chcf (including now)? No 01/23/2023 Housing Stability Vital [...] time in the past 12 m [facility], were you homeless or living in a chcf (including now)? No 03/25/2024 IPV Inpatient Questions [...] 9:00 AM EDT Office Visit [place] [address] Nighat López MD [facility] [place] [address] 05/28/2024 8:00 AM EDT Office Visit Hematology/Oncology at [address] [phone] Rodriguez Fowler MD [facility] [place] [address] Sherry Cedillo APRN [address] [place] [address] DR HEMATOLOGY [place] [address] 05/28/2024 8:30 AM EDT Infusion Hematology Oncology at [address] [phone] 05/28/2024 9:30 AM EDT Clinical Support Hematology/Oncology at [address] [phone] Leah Rose, RD [facility] DR [place] [address] documented as of this encounter Visit Diagnoses Not on filedocumented in this encounter Care Teams Signal Technician Relationship Specialty Start Date End Date Olga Hoffman APRN [address] [place] [address] PCP - General Family Medicine 10/30/22 documented as of this encounter
--- OUTSIDE RECORDS SUMMARY | 2024-05-21 01:09 | XMS_ITS | Encounter Summary ---
[place] [address] Care Team Providers Care Website/Blog Editor Name Role Phone Olga Hoffman APRN Primary Care Provider [phone] Encounter Details Date Type Department Care Team (Late st Contact Info) Description 03/26/2024 Telephone [place] [address] Gina Marie, RN Social History Tobacco Use Types Packs/Day Years Used Date Smoking Tobacco: Never Smokeless Tobacco: Never Alcohol Use Standard Drinks/Week Comments Not Currently 0 (1 standard drink = 0.6 oz pur e alcohol) [facility] Utilities Answer Date Recorded In the past [...] any time in the past 12 m [facility], were you homeless or living [...] encounter Miscellaneous Notes * Telephone Encounter - Gina Marie RN - 03/26/2024 3:44 PM EDT I left a voicemail for Charles's partner Jenelle to let her know I was able to override the cost exceeds maximum denial on the [employer] through [employer]. A prior authorization was not needed. I called [employer] and confirmed they were able to run this and fill a 30 day supply with zero dollar co-pay. I left my name and number to call with any questions. documented in this encounter Plan of Treatment Upcoming Encounters Date Type Department Care Team (Late st Contact Info) Description 05/21/2024 9:00 AM EDT Office [place] [address] Nighat López MD [facility] [place] [address] 05/28/2024 8:00 AM EDT Office Visit Hematology/Oncology at [address] [phone] Rodriguez Fowler MD [facility] [place] [place] [address] Sherry Cedillo APRN [address] [place] [address] DR HEMATOLOGY AND ONCOLOGY [place], [place] [phone] 05/28/2024 8:30 AM EDT Infusion Hematology Oncology at [address] [phone] 05/28/2024 9:30 AM EDT Clinical Support Hematology/Oncology at [address] [phone] [facility] DR HEMATOLOGY [place] [address] documented as of this encounter Visit Diagnoses Not on filedocumented in this encounter Care Teams Website/Blog Editor Relationship Specialty Start Date End Date Olga Hoffman APRN [address] [place], [place] [address] PCP - General Family Medicine 10/30/22 documented as of this encounter
--- OUTSIDE RECORDS SUMMARY | 2024-05-21 01:09 | XMS_ITS | Encounter Summary ---
Author Organization [facility] [place] [address] Care Team Providers Care Grazing Examiner Name Role Phone DaltonAbigailOlgaevy Bell APRN Primary Care Provider [phone] Encounter Details Date Type Department Care Team (Late st Contact Info) Description 03/24/2024 5:30 PM EDT Ancillary Procedure [place] [address] Rudi Hernandez MD [facility] [place] [address] Social History Tobacco Use Types Packs/Day Years Used Date Smoking Tobacco: Never Smokeless Tobacco: Never Alcohol Use Standard Drinks/Week Comments Not Currently 0 (1 standard drink = 0.6 oz pur e alcohol) [facility] Utilities Answer Date Recorded In the past 12 months has [employer], gas, oil, or water [employer] threatened to shut off services in your [...] in a snf (including now)? No 03/25/2024 IPV Inpatient Questions [...] 9:00 AM EDT Office [place] [address] Nighat López MD [facility] [place] [address] 05/28/2024 8:00 AM EDT Office Visit Hematology/Oncology at [address] [phone] Rodriguez Fowler MD [facility] [place] [address] Sherry Cedillo APRN [address] [place] [address] DR HEMATOLOGY AND ONCOLOGY [place], [place] [id number] 05/28/2024 8:30 AM EDT Infusion Hematology Oncology at [address] [phone] 05/28/2024 9:30 AM EDT Clinical Support Hematology/Oncology at [address] [phone] [facility] HEMATOLOGY [place] [address] documented as of this encounter Procedures Procedure Name Priority Date/Time Associated Diagnosis Comments FILM LIBRARY STORAGE ONLY CT CHEST ABDOMEN PELVIS Routine 03/24/2024 5:27 PM EDT documented in this encounter Results * Film Library- Storage Only CT Chest Abdomen Pelvis (03/24/2024 5:27 PM EDT) Narrative RAD - 03/24/2024 5:27 PM EDT This exam is auto-finalizing. It's purpose is for storage only. Rudi Hernandez MD IMG FILM LIBRARY ORD ERABLES [place], [place] documented in this encounter Visit Diagnoses Not on filedocumented in this encounter Care Teams Grazing Examiner Relationship Specialty Start Date End Date Olga Hoffman APRN [address] [place] [address] PCP - General Family Medicine 10/30/22 documented as of this encounter
--- OUTSIDE RECORDS SUMMARY | 2024-05-21 01:09 | XMS_ITS | Encounter Summary ---
Author Organization [facility] [place] [address] Care Team Providers Care Tilt Wall Supervisor Name Role Phone DaltonAbigailOlgaevy Bell APRN Primary Care Provider [phone] Encounter Details Date Type Department Care Team (Late st Contact Info) Description 03/24/2024 7:50 PM EDT Ancillary Procedure [place] [address] Rudi Hernandez MD [facility] [place] [address] Social History Tobacco Use Types Packs/Day Years Used Date Smoking Tobacco: Never Smokeless Tobacco: Never Alcohol Use Standard Drinks/Week Comments Not Currently 0 (1 standard drink = 0.6 oz pur e alcohol) [facility] Utilities Answer Date Recorded In the past 12 months has [employer], gas, oil, or water [employer] threatened to shut off services in your [...] 9:00 AM EDT Office [place] [address] Nighat López MD [facility] [place] [address] 05/28/2024 8:00 AM EDT Office Visit Hematology/Oncology at [address] [phone] Rodriguez Fowler MD [facility] [place] [address] Sherry Cedillo APRN [address] [place] [address] DR HEMATOLOGY AND ONCOLOGY [place], [place] [phone] 05/28/2024 8:30 AM EDT Infusion Hematology Oncology at [address] [phone] 05/28/2024 9:30 AM EDT Clinical Support Hematology/Oncology at [address] [phone] [facility] [place]AT[place] [address] documented as of this encounter Procedures Procedure Name Priority Date/Time Associated Diagnosis Comments REQUEST FOR 2ND READ CT ABDOMEN AND PELVIS Routine 03/24/2024 7:48 PM EDT documented in this encounter Results * Request For 2nd Read CT Abdomen & Pelvis (03/24/2024 7:48 PM EDT) WORKSTATION ID [id number] RAD Anatomical Region Laterality Modality Abdomen, Pelvis SO [...] who have questions please contact the health home visit field care manager that requested your imaging first. ? Narrative 03/25/2024 9:19 AM EDT EXAMINATION: REQUEST FOR 2ND READ CT ABDOMEN AND PELVIS CLINICAL HISTORY: s/p Whipple w/ po intolerance, leukocytosis, tachycardia, hypoT - c/f acute findings, ?fluid collection or abscess; Sending Institution [facility]; Date of exam [id number]; I believe a [...] c/f acute findings, ?fluid collection or abscess; [facility]; Date of exam [id number]; I believe a [...] [place] hepatis measures 4 x 3.6 cm ([id number] image 28). GALLBLADDER/BILIARY TREE: Status post cholecystectomy. [...] patients who have questions please contactthe health home visit field care manager that requested your imaging first. Rudi Hernandez MD IMG OUTSIDE INTERPRE TATION ORDERABLES documented in this encounter Visit Diagnoses Not on filedocumented in this encounter Care Teams Tilt Wall Supervisor Relationship Specialty Start Date End Date Olga Hoffman, SHEET METAL APPRENTICE [address] [place] [address] PCP - General Family Medicine 10/30/22 documented as of this encounter
--- OUTSIDE RECORDS SUMMARY | 2024-05-21 01:09 | XMS_ITS | Encounter Summary ---
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 Name Role Phone Olga Hoffman APRN Primary Care Provider [phone] Reason for Referral * Diagnostic Test (Routine) - New Request Specialty Diagnoses / Procedures Referred By Contac t Referred To Contact Radiology Diagnoses Perihepatic abscess Duodenal adenocarcinoma Procedures IR Drain Check/Change/Remove Tejas Henao PA [facility] INTERVENTIONAL [place] [address] [place] [address] Referral ID Status Reason Start Date Expiration Date Visits Requested Visits Authorized [id number] New Request Specialty Service Requested 04/09/2024 10/10/2025 1 1 * Home Health Care (Routine) - Pending Review Specialty Diagnoses / Procedures Referred By Contac t Referred To Contact Diagnoses Perihepatic abscess Chalino Cristina MD [facility] [place] [address] [facility] [place] [address] [place] [address] Referral ID Status Reason Start Date Expiration Date Visits Requested Visits Authorized [id number] Pending Review Consult, Test & Treat 04/01/2024 09/28/2024 999 999 * Diagnostic Test (Routine) - New Request Specialty Diagnoses / Procedures Referred By Janak holland Referred To Contact Radiology Diagnoses Perihepatic abscess Duodenal adenocarcinoma Obesity due to excess calories with serious comorbidity, unspecified classification Procedures IR Drain Check/Change/Remove Joe Quintero DO [facility] [place] [address] [facility] [place] [address] Referral ID Status Reason Start Date Expiration Date Visits Requested Visits Authorized [id number] New Request Specialty Service Requested 03/25/2024 09/25/2025 1 1 Reason for Visit * Auth/Cert (Routine) Specialty Diagnoses / Procedures Referred By Janak holland Referred To Contact Diagnoses Perihepatic abscess abscess Procedures EMERGENCY IPI Rudi Hernandez MD [facility] [place] [address] [facility] Referral ID Status Reason Start Date Expiration Date Visits Re quested Visits Authorized [id number] 1 1 Encounter Details Date Type Department Care Team (Latest Contact Info) Description 03/24/2024 9:11 PM EDT - 04/01/2024 3:24 PM EDT Hospital Encounter Surgical Unit Level 4 [place] [id number] Rudi Hernandez MD [facility] [place] [address] Perihepatic abscess; Duodenal adenocarcinoma; Obesity due to excess calories with serious comorbidity, unspecified classification; Severe protein-calorie malnutrition Discharge Disposition: Home with VNA Social History Tobacco Use Types Packs/Day Years [...] place to sleep or slept in a correction (including now)? No 01/23/2023 Housing Stability Vital Sign Answer Alexander e Recorded In the last 12 months, was t here a time when you were not able to pay the mortgage or rent on time? No 03/25/2024 In the past 12 months, how m any times have you moved where you were living? 0 03/25/2024 At any time in the past 12 m [facility], were you homeless or living in a correction (including now)? No 03/25/2024 IPV Inpatient Questions [...] Sign Reading Time Taken Comments Blood Pressure 119/80 04/01/2024 2:46 PM EDT Pulse 75 03/30/2024 8:09 PM EDT Temperature 36.8 ??C (98.2 ??F) 04/01/2024 2:46 PM ED T Respiratory Rate 16 04/01/2024 2:46 PM EDT Oxygen Saturation 97% 04/01/2024 2:46 PM EDT Inhaled Oxygen Concentration - - Weight 119.7 kg (263 lb 14.3 oz) 03/30/2024 7:34 AM EDT Height 188 cm (6' 2) 03/24/2024 9:14 PM EDT Body Mass Index 33.88 03/25/2024 6:25 AM EDT documented in this encounter Discharge Summaries * Chalino Cristina MD - 04/01/2024 1:04 PM EDT Surgical Oncology Inpatient - Discharge Summary Patient Name: Charles Nick Patient Age: 48 y.o. Birthdate: 1975 Admit date: 03/24/2024 Discharge date: 04/01/24 Admitting Physician: Rudi Hernandez MD Primary Diagnosis: Perihepatic abscess Secondary Diagnosis: Active Hospital Problems Diagnosis Perihepatic abscess Severe protein-calorie malnutrition Identified: less than or equal to 50% of estimated energy requirement for greater than or equal to 5 days, greater than 7.5% weight loss in 3 months, and Mild Lean Muscle Loss is consistent with Severe protein-calorie malnutrition in the setting of acute illness or injury (Arnold, JPEN J Parenteral Enteral Nutr. 2012 January; 36(3): 273-83) Resolved Hospital Problems No resolved problems to display. Active Non-Hospital Problems Diagnosis Duodenal adenocarcinoma CKD (chronic kidney disease) stage 3, GFR 30-59 ml/min Obesity HPI: (from Admission H&P 03/24/24) Charles Nick is a 48 y.o. 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 Patient has been feeling increasing fatigue since discharge from Whipple procedure approximately 10days ago. He takes his BP at home and has noticed that it is low and he feels dizzy and SOB with activity with several episodes of pre/syncope. He does not have abdominal pain but does have a small area of dehiscence of his midline incision with minimal serous drainage. He has tolerated food without nausea and vomiting but had an episode of large volume emesis earlier today. No chest pain or palpitations. No fevers or chills. Patient has not been taking home dose amlodipine or lasix due to hypotension. He does not smoke anddrinks alcohol occasionally. No recreational drug use. No new medical problems since his last admission. He initially presented to [facility] and was transferred here for further care. His partner is with him at bedside. Operations/Major Procedures: CT Guided Peripancreatic Drain Placement 03/25/24 Findings: Air and fluid containing lobulated collection in the operative bed, as on prior CT. Placement of a 10.2-Fr drainage catheter into collection. 10 cc of saniopurulent fluid aspirated; samples sent for gram stain / culture and body-fluid amylase. Final CT images showed collapse of the collection. Hospital Course: Charles Nick was admitted to [facility] on 03/24/2024 as a direct-admit from [facility]. His complete hospital course is detailed below: 03/24 HD1: Transferred from OSH for generalized malaise and dizziness with CT demonstrating peripancreatic fluid collection. WBC 9.3 on admission. Admitted to surgical oncology, started on IVF, broad spectrum abx with cefepime/flagyl, with plan for IR drain placement tomorrow. 03/25 HD2: CO2 8 c/f anion gap acidosis - lactate WNL, BOHB 6.3 with POC glucose WNL c/f euglycemic DKA. Hospital medicine consulted for management of DKA, started on insulin gtt. NGT placed for nausea and bilious emesis. Underwent IR peripancreatic drain placement - fluid amylase >7500 confirming clinically significant postop pancreatic leak/fistula, gram stain with GPC, GNR, GPR. Hgb 12.7 c/wdilutional anemia. 03/26 HD3: Continue broad spectrum abx. PICC placed. F/u Hospital Medicine recs regarding DKA treatment: anion gap closed and bicarb > 20, transitioned off insulin gtt onto glargine 10u + moderate sliding scale for correction. Aggressive repletion of K and Phos. 03/27 HD4: BASIA drain output 125cc; NGT output 1300cc; Start TPN today through PICC line, continue NGTto suction. 03/28 HD5: Patient had TPN started yesterday evening, which improved his subjective strength. NGT remains elevated at 1450cc. Peripancreatic fluid growing Strep milleri, Prevotella buccae, and rare yeast- continues on Zosyn, awaiting sensitivities. 03/29 HD6: Continues on ceftriaxone/flagyl while waiting fluid sensitivities, started on fluconazole. NGT clamp trial with 300cc output - NGT returned to WS and started on Reglan for pro-motility (?Component of gastroparesis given his DM). Insulin added to TPN. 03/30 HD7: Repeat NGT clamp trial on Reglan - successful clamp trial, NGT removed, advanced to clearliquid diet. Consult ID for abx regimen - recommend continuing IV abx and fluconazole until reliably taking PO and then switching to Augmentin TID and PO fluconazole daily until drain removal/resolution of abscess. Suppository. Floor status. 03/31 HD8: Advanced to carb controlled diet, tolerating well. Started on PO Augmentin and fluconazole per ID recs. Drain amylase remains >7500. DM team recommending discharge home on 10u lantus anddiscontinuing Farxiga. 04/01 HD9: tolerated carb-controlled diet with no complications. To be discharged home with drain inplace. To be discharged on PO antibiotics per ID recs. He was deemed stable for discharge on hospital day 9 having achieved adequate pain control on oral analgesics, ambulating and voiding independently, tolerating a regular, carb-controlled diet, and having regular bowel movements. He is discharged home with his IR drain in place with plan to return in 1 week for labs, drain study and follow-up with Dr. Hernandez. Important Studies and Lab Data: See below. Pathology: N/A Microbiology: Peripancreatic fluid culture 03/25/24: Many mixed Gram Negative and Positive organisms including Streptococcus milleri, anginosis group and Rare Yeast. Many Prevotella buccae. Labs: Lab Results Component Value Date Sodium 137 04/01/2024 Potassium 4.8 04/01/2024 Chloride 100 04/01/2024 CO2 29 04/01/2024 BUN 10 04/01/2024 Creatinine 0.70 (L) 04/01/2024 Glucose Lvl 165 04/01/2024 CBC Lab Results Component Value Date WBC 6.1 04/01/2024 Hemoglobin 12.1 (L) 04/01/2024 Hematocrit 37.2 (L) 04/01/2024 Platelets 150 04/01/2024 No results found for: PREALBUMIN No results for input(s): PT, PTT, INR in the last 168 hours. Pending Lab Data at Discharge: The patient will need the following 2 tests completed on: 03/24/2024 1. Body Fluid Culture, Aerobic & Anaerobic Abdominal Fluid 2. Request for Blood Gas Draw (Leb/CGP) Diagnosis: Authorizing Provider: Rudi Hernandez MD, John Paul Logan MD Studies: Request for 2nd Read CT A/P 03/24/24: IMPRESSION 1. Status post Whipple. Multiloculated peripancreatic collections in the region of the pancreaticojejunostomy containing fluid and extraluminal air measuring up to 5.4 cm. Differential includes anastomotic leak and/or abscess. 2. Pneumobilia with dilated extrahepatic biliary duct with transition point at the anastomosis, possibly due to postsurgical edema. 3. 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 No definite thrombus. 4. Skin dehiscence at the proximal laparotomy incision. CT Guided Drain Peripancreatic 03/25/24: Findings: Air and fluid containing lobulated collection in the operative bed, as on prior CT. Placement of a 10.2-Fr drainage catheter into collection. 10 cc of saniopurulent fluid aspirated; samples sent for gram stain / culture and body-fluid amylase. Final CT images showed collapse of the collection. Impression: Successful marii-pancreatic abscess drainage catheter placement. XR PICC Placement 03/26/24: IMPRESSION Satisfactory position of right PICC. Discharge Exam: Last value Range last 12 hrs Temperature Temp: 36.8 ??C (98.2 ??F) Temp: [36.8 ??C (98.2 ??F)] Heart Rate Heart Rate: 75 Heart Rate: -- Blood Pressure BP: 118/81 BP: (118-135)/(81-84) Respiratory Rate Resp: 16 Resp: [14-16] SpO2 SpO2: 98 % SpO2: [98 %] I/Os: I/O last 3 completed shifts: In: 1194 [P.O.:977] Out: 614 [Urine:400; Other:214] I/O this shift: In: 3142 [P.O.:220; I.V.:2922] Out: 40 [Other:40] Gen: NAD, alert & oriented x3 HEENT: normocephalic, atraumatic, EOMI, sclerae anicteric Pulm: non-labored breathing on RA Card: RRR Abd: Non-distended, soft, non-tender. Incision noted on the lower abdomen, well- apposed. With stri-stripes. Clean, dry and intact. Drain also noted with minimal sero-purulent drainage output. Incision site dressed with gauze and covered by tegaderm. Wound: incision clean, dry, intact, no purulent drainage Ext: warm, dry, no edema Neuro: A&Ox3, nonfocal, conversant Drains/lines at discharge: BASIA drain present Discharge Plans: Discharge to: Home VNA: Yes [facility] [address] [address] Discharge Conditions/Prognosis: Stable Discharge Medications: The following medications have been prescribed for you. If you notice any adverse reactions to your medications, please contact your primary care physician immediately or go tothe nearest Emergency Department. Your Medications New Medications Dose Details acetaminophen 325 mg tablet Commonly known as: Tylenol Take 2 tablets by mouth every 8 hours as needed for Pain. 650 mg Quantity: 30 tablet Refills: 1 amoxicillin-clavulanate 500-125 mg tablet Commonly known as: Augmentin Take 2 tablets by mouth 3 times daily for 7 days. 2 tablet Quantity: 42 tablet Refills: 0 fluconazole 200 mg tablet Commonly known as: Diflucan Take 3 tablets by mouth daily for 6 days. Start taking on: April 02, 2024 600 mg Quantity: 18 tablet Refills: 0 insulin glargine-yfgn 100 unit/mL Solution Commonly known as: Semglee Inject 10 Units subcutaneously daily. Start taking on: April 02, 2024 Replaces: Semglee(insulin glarg-yfgn)Pen 100 unit/mL (3 mL) Insulin Pen 10 Units Quantity: 10 mL Refills: 0 Continued medications with new dosing Dose Details ondansetron ODT 4 mg disintegrating tablet Commonly known as: Zofran-ODT Take 1 tablet by mouth every 8 hours as needed for Nausea. What changed: Another medication with the same name was removed. Continue taking this medication, and follow the directions you see here. 4 mg Quantity: 9 tablet Refills: 0 Continued medications, unchanged Dose Details amLODIPine 10 mg tablet Commonly known as: Norvasc Take 1 tablet by mouth daily. 1 tablet Refills: 0 BD Ultra-Fine Micro Pen Needle 32 gauge x 1/4 Needle 1 each by Misc.(Non-Drug; Combo Route) route 2 times daily. Generic drug: Insulin [place] (Disposable) 1 each Quantity: 300 each Refills: 3 citalopram 10 mg tablet Commonly known as: CeleXA Take 10 mg by mouth daily. 10 mg Refills: 0 furosemide 20 mg tablet Commonly known as: Lasix Take 1 tablet by mouth 2 times daily. 20 mg Quantity: 180 tablet Refills: 3 gabapentin 600 mg tablet Commonly known as: Neurontin Take 600 mg by mouth 3 times daily. 600 mg Refills: 0 magnesium oxide 400 mg (241.3 mg magnesium) Tablet Commonly known as: Mag-Ox Take 1 tablet by mouth nightly. 1 tablet Refills: 0 montelukast 10 mg tablet Commonly known as: Singulair Take 10 mg by mouth daily. 10 mg Refills: 0 naltrexone 50 mg tablet Commonly known as: Depade Take 50 mg by mouth daily. 50 mg Refills: [address] capsule Commonly known as: PriLOSEC Take 1 capsule by mouth daily. 20 mg Quantity: 90 capsule Refills: 1 potassium chloride ER 10 mEq ER tablet Commonly known as: Klor-Con, K-Tab Take 1 tablet by mouth 2 times daily. 10 mEq Quantity: 30 tablet Refills: 0 tadalafiL 10 mg tablet Commonly known as: Cialis TAKE 1 TABLET BY MOUTH ONCE A DAY NEEDED. TAKE 1 HOUR PRIOR TO SEXUAL INTERCOURSE Refills: 0 Zenpep 40,000-126,000- 168,[address] capsule Take 2 capsules by mouth 3 times daily. Take 2 capsules with meals and 1 capsule with snacks. Generic drug: skdtcq-llhiigmo-uoewknd 2 capsule Quantity: 300 capsule Refills: 3 STOPPED Medications clindamycin 150 mg capsule Commonly known as: Cleocin cyanocobalamin (Vitamin B-12) 100 mcg tablet Commonly known as: Vitamin B-12 famotidine 20 mg tablet Commonly known as: Pepcid Farxiga 10 mg tablet Generic drug: dapagliflozin propanediol lidocaine 5% Adhesive Patch, Medicated Commonly known as: Lidoderm LORazepam 0.5 mg tablet Commonly known as: Ativan Semglee(insulin glarg-yfgn)Pen 100 unit/mL (3 mL) Insulin Pen Replaced by: insulin glargine-yfgn 100 unit/mL Solution UNREVIEWED medications - Discuss With Your Provider Dose Details oxyCODONE 5 mg tablet Commonly known as: Roxicodone Take 1-2 tablets by mouth every 4 hours as needed for Pain (5mg for moderate pain 4-6 not controlled with Tylenol, 10mg for severe pain 7-10 not controlled with Tylenol). 5-10 mg Quantity: 10 tablet Refills: 0 Updated Allergies/ADRs: Allergies Allergen Reactions Penicillins Rash Per pt, received penicillin as a child and experienced a rash, however tolerated amoxicillin since then. Pt unlikely to remain penicillin allergic at this time. Scheduled Appointments: Future Appointments Date Time Provider Department Center 04/08/2024 8:45 AM LAB, THREE L Lab 3L [facility] 04/08/2024 9:30 AM Rudi Hernandez MD [facility] SURG [facility] 04/08/2024 10:[address] [facility] SURG [facility] 04/08/2024 12:10 PM [facility] IR ROOM 1 [facility] Rad 04/20/2024 11:00 AM Rodriguez Fowler MD [facility] HEM ONC [facility] 05/21/2024 9:00 AM Nighat López MD [facility] ENDO [facility] Outpatient Services/Studies: IR Drain Check/Change/Remove Standing Status: Future Standing Exp. Date: 07/26/24 Question Response Notes Where will study be performed? [facility] Radiology [120] To be scheduled Next available after expected date Reason for exam and clinical history: Duodenal Carcinoma status post whipple. Abscess in operative bed. Drain placed 03/25/24 Is the patient on anticoagulant / antiplatelet therapy ? No CBC (with Diff) Standing Status: Future Standing Exp. Date: 04/01/25 Comprehensive metabolic panel (non-fasting) Standing Status: Future Standing Exp. Date: 04/01/25 Amylase Level Body Fluid Standing Status: Future Standing Exp. Date: 10/08/24 Question Response Notes Specimen Type: BASIA Drain Referral to Home Health Referral Priority: Routine Referral Type: Home Health Care Referral Reason: Consult, Test & Treat Referred to Provider: [facility] Number of Visits Requested: 999 Instructions Given to Patient at Discharge:. An After Visit Summary was printed and given to the patient. Patient Instructions [facility] Department of Surgical Oncology Discharge Instructions CALL YOUR PHYSICIAN'S OFFICE IF: You have a fever greater than 101 degrees Farenheit (38.3C) within one month of your surgery. You have diarrhea or vomiting for >24 hours, stop having bowel movements and/or passing flatus, have pain with urination. You have worsening pain, not controlled with your pain medication. You develop redness, swelling, or new drainage from your wound. Medications: [] Pain Control Some incision soreness can be expected. Take your pain medication as needed and prescribed. Taper use of pain medication as pain lessens. [] Non-narcotic pain medication - We recommend alternating with tylenol 650mg and ibuprofen 400-600mg every 6 hours (ie; tylenol at12pm, ibuprofen 3pm, tylenol 6pm, ibuprofen 9pm). - Do not take more than 4,000mg (4g) of tylenol in 24hours. Do not take ibuprofen on an empty stomach. [] Antibiotics - You have been prescribed 1g 3 times daily of Aumentin and 600mg once daily of fluconazole for 7days to treat peripancreatic abscess. [] Other Medication(s) - The remainder of your medications are listed in the first section of the After Visit Summary. Driving Restrictions: - No driving if you are too sore from surgery to enter or exit your vehicle comfortably, or if you are too sore to easily check your blind spot. No driving while using narcotic pain medications. Shower: - It is ok to shower. You can shower per usual routine and let soapy water run over your incision. Pat incision dry with a clean, dry towel. Do not submerge the wound under water (no swimming or soaking) for at least 6 weeks, or until approved by your surgeon. Diet: [] You have been cleared to resume your carb-controlled diet - We recommend eating a regular healthy diet (ie; fresh fruits, vegetables and fiber-containing foods will assist in wound healing,) Activity: - It is normal to feel tired after surgery/hospitalization. Be as active as tolerated as this will improve recovery and prevent blood clots. - You should avoid any heavy lifting for 4 weeks after surgery. A gallon of milk is a good estimateof the maximum you should be lifting while your wounds heal. -We recommend taking several slow, short walks each day for the first two weeks, and gradually increase your distance. We recommend at least 4 times a day. Wound/Incision Care: Closure: Your skin incision(s) is closed with: [] Edd - Your edd have been removed and steri-stripes placed. Dressing: Your drain incision site is covered with a dressing with gauze and tegaderm. Infection: Observe for changes and alert the clinic if new/worsening redness or drainage. Things to avoid: Do not use creams, oils, or ointments on the wound. Lines/Drains/Tubes: [] You are being discharged with a BASIA drain. Please see the multidisciplinary instructions below for details. Who to call? If you have concerns or questions: - During the day, it is best to call the [facility] to speak with the Surgery nurses. The number is [phone]. - During the night or weekends call the [facility] kitchen operator at [phone] and ask to speak to the surgery resident conversion developer for general surgery. Please note: Your surgeon may not be Perfume Maker, especially during the night or on weekends, so be ready to describe yourself and your surgery when you call. Follow up appointments: Future Appointments Date Time Provider Department Center 04/08/2024 12:10 PM [facility] IR ROOM 1 [facility] Rad 04/08/2024 1:30 PM Rudi Hernandez MD [facility] SURG [facility] 04/08/2024 2:[address] [facility] SURG [facility] 04/20/2024 11:00 AM Rodriguez Fowler MD [facility] HEM ONC [facility] 05/21/2024 9:00 AM Nighat López MD [facility] ENDO [facility] [x] Follow-up appointment with General Surgery has already been scheduled [x] A follow-up appointment with your PCP has been scheduled for Friday04/14/24 @ 10AM - please discuss going back on Metformin at this appointment. If you need a prior authorization, please call the General Surgery Clinic nurses [phone] for prior authorizations assistance General Instructions INTERVENTIONAL RADIOLOGY DRAIN CARE INSTRUCTIONS Drains help [...] is during regular office hours, please call [phone]. If it is after regular office hours, or on weekends or holidays, please call [phone] and ask to speak to the [employer] conversion developer for Interventional Radiology. XX You have received [...] Total Amount (per drain; in 24 hours) Social Work Resources [place] [facility] may be able to assist with caregiver support and care services. Highly recommend that you give them a call to discuss how they can support with needs after discharge. [facility] [address] [place] [address], [address] (view mapfor [facility]) [phone] Toll Free Helpline [phone] Administrative [phone] FAX [email or web address] Diabetes Discharge Instructions & Recommendations Check your blood sugars when you wake up and before bedtime for the next couple weeks at home - keep a log to take to your appointments. DO NOT restart Farxiga Metformin: Sounds like you have not been on this for some time. Talk to your diabetes provider about possibly restarting Metformin XL 500mg twice daily for improved glucose management (and may less insulin) Lantus: restart this the day after discharge. Follow-up with Primary care provider in the next 2-4 weeks for further diabetes management. Instructions for insulin glargine (Lantus) Insulin (LONG ACTING) Please inject Lantus 10 units every morning. If your fasting blood sugars are above 150mg/dl two days in a row, please increase your Lantus by 2units. If your fasting blood sugars are below 100mg/dl two days in a row, please decrease your Lantus by 2units. This dose now becomes your new daily dose unless it need to be further adjusted based on future glucose readings. Treatment of Low Blood Sugar (Hypoglycemia) 15:15 rule - if your blood sugars is under 80, eat 15g of sugar, and recheck your blood sugar in 15minutes. If you continue to be under 80 after 15 minutes, eat 15g of sugar more, and repeat. If BG is over 100 on recheck, no need to consume more sugar, and recheck BG in another 15 minutes. If your BG is lower than 80, you are likely to feel shaky, sweaty and lightheaded. This is a signalthat your body needs more sugar. Quickly eat or drink a 15g of something sweet, such as: 4 ounces fruit juice or regular (not diet) soda 6 lifesavers small box of raisins 4 glucose tablets (~15 gm of glucose) If your BG is very low <50, you can double the amount above or take 30 gm of glucose gel/tablets. Once you are feeling better, try to determine why your BG was so low. Common causes of hypoglycemiainclude skipping a meal, lots of exercise, too much insulin or any combination of these things. Understanding the cause my help you to avoid another low BG in the future. Test blood sugars prior to driving, make sure glucose levels are greater than 100mg/dl. If not havea snack and retest blood sugars in 15 minutes. Carry a glucose source on you at all times. Call your diabetes provider for blood sugars less than 80 or greater than 300 twice in one day to have your insulin doses adjusted. Future Appointments and Orders Future Appointments and Orders Future Appointments Provider Department Dept Phone 04/08/2024 8:45 AM LAB, THREE L Lab 3L [facility] Arrive at: Shop Supervisor Area 3L [phone] 04/08/2024 9:30 AM Rudi Hernandez MD General Surgery at [facility] Arrive at: Shop Supervisor Area 4L [phone] Please dispose of unused excess opioids before your appointment or bring them with you to the appointment and we will help you dispose of them correctly. 04/08/2024 10:[address] General Surgery at [facility] Arrive at: Shop Supervisor Area 4L [phone] 04/08/2024 12:10 PM [facility] IR ROOM 1 Radiology at [facility] Arrive at: 3 RADIOLOGY [phone] Please expect a call from a radiology nurse within 3 days of your exam, you will need to follow theinstructions given at that time. 04/20/2024 11:00 AM Rodriguez Fowler MD Hematology and Oncology at [facility] Arrive at: Shop Supervisor Area 3K [phone] 05/21/2024 9:00 AM Nighat López MD; [facility] ENDOCRINOLOGY PRECEPTOR Endocrinology at [facility] Arrive at: Shop Supervisor Area 3A [phone] Future Orders Complete By Expires Amylase Level Body Fluid [BFO240 Custom] 04/08/2024 10/08/2024 Process Instructions: Scheduling Instructions: Comments: Questions: Specimen Type: BASIA Drain CBC (with Diff) [[id number] Custom] 04/08/2024 04/01/2025 Process Instructions: INCLUDES: WBC, RBC, Hgb, Hct, Platelets, RBC Indices and Differential Scheduling Instructions: Comments: Questions: Comprehensive metabolic panel (non-fasting) [LAB17 Custom] 04/08/2024 (Approximate) 04/01/2025 Process Instructions: INCLUDES: Calcium, T Protein, Albumin, AST, ALT, Alk Phos, T Bili, BUN, Creat, GFR, Glucose, Lytes. Scheduling Instructions: Comments: Questions: IR Drain Check/Change/Remove [[id number] Custom] 04/08/2024 07/26/2024 Process Instructions: Scheduling Instructions: Comments: Questions: Where will study be performed?: [facility] Radiology To be scheduled: Next available after expected date Reason for exam and clinical history: Duodenal Carcinoma status post whipple. Abscess in operative bed. Drain placed 03/25/24 Exam/Procedure requested: What labs need to be collected during imaging study?: Does patient require sedation?: Sedation rationale: Is the patient on anticoagulant / antiplatelet therapy ?: No Referral to Home Health [REF34 Custom] As directed Process Instructions: If no progress note charted, please enter Clinical details in comments. Scheduling Instructions: Comments: Please evaluate Charles Nick for admission to Home Health. 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's Name: Spouse In discussion with the attending physician, it is certified that this patient is under their care and that they, or a Nurse Practitioner, Clinical Nurse specialist or Physician Marine Design Engineer who is working directly with them, had a face to face encounter that meets the physician face to face encounter requirements with this patient on 04/01/2024 ( please enter DC date here) The encounter with the patient was in whole, or in part, for the following medical condition, whichis the primary reason for home health care services: Peripancreatic abscess In discussion with the provider, it is certified that, based on their findings, the following services are medically necessary for home health services. To provide the following care/treatments with the clinical findings supporting the need for services as follows: HOME CARE ORDERS: PT ORDERS: Continue rehab for endurance, gait stability and strength with mobility and transfers. Home safety evaluation. Home exercise program if appropriate. HOME HEALTH CARE AGENCY: [facility] [address] [place] [address] START OF CARE: within 24-48 hours of discharge In discussion with the attending physician, it is certified that the clinical findings support thatthis patient is homebound because absences from home require considerable and taxing effort due to:Restricted mobility due to lower extremity strength and motion due to recent surgery Unsteady gait, poor balance, requiring assistive devices and/or assistance of another. Please note that any additional orders needs or changes will need to be obtained from this patient's PCP: Olga Hoffman APRN [address] [facility] [address] . All VNA agencies which cover the areaof patient's residence have been reviewed, either verbally or in writing, and patient/family have chosen the home health care agency noted. Questions: Disciplines Requested: Physical Therapy Discharge References/Attachments: Discharge References/Attachments None Follow-up Recommendations for Providers: Medication changes: DISCONTINUE Farxiga. START Lantus 10u daily. Consider resuming Metformin Diet changes: N/A Other: IR drain check 04/08 CC: Olga Hoffman APRN [phone] Signed: Chalino Cristina MD Surgical Oncology Service Team Pager #[phone] 04/01/2024 2:21 PM For questions regarding this document or issues relating to this hospitalization on the Surgical Oncology Service, please contact Rudi Hernandez MD's office at [phone] documented in this encounter Discharge Instructions * Discharge Instructions* Isidra Hickey, YOCASTA - 03/25/2024 10:29 AM EDT INTERVENTIONAL RADIOLOGY DRAIN CARE INSTRUCTIONS [...] is during regular office hours, please call [phone]. If it is after regular office hours, or on weekends or holidays, please call [phone] and ask to speak to the Jaw Skinner conversion developer for Interventional Radiology. XX You have received [...] or foul drainage occurs, please contact your Jeffy Preciado Revised 07/01/19 Drainage Record NAME: Date of Surgery: Date: Time: If more than one drain, which one: Drainage Amount (per drain) Total Amount (per drain; in 24 hours) Social Work Resources [facility] may be able to assist with caregiver support and care services. Highly recommend that you give them a call to discuss how they can support with needs after discharge. [facility] [address] [facility], [address] (view mapfor [facility]) [phone] Toll Free Helpline [phone] Administrative [phone] FAX [email or web address] Diabetes Discharge Instructions & Recommendations Check your blood sugars when you wake up and before bedtime for the next couple weeks at home - keep a log to take to your appointments. DO NOT restart Farxiga Metformin: Sounds like you have not been on this for some time. Talk to your diabetes provider about possibly restarting Metformin XL 500mg twice daily for improved glucose management (and may less insulin) Lantus: restart this the day after discharge. Follow-up with Primary care provider in the next 2-4 weeks for further diabetes management. Instructions for insulin glargine (Lantus) Insulin (LONG ACTING) Please inject Lantus 10 units every morning. If your fasting blood sugars are above 150mg/dl two days in a row, please increase your Lantus by 2units. If your fasting blood sugars are below 100mg/dl two days in a row, please decrease your Lantus by 2units. This dose now becomes your new daily dose unless it need to be further adjusted based on future glucose readings. Treatment of Low Blood Sugar (Hypoglycemia) 15:15 rule - if your blood sugars is under 80, eat 15g of sugar, and recheck your blood sugar in 15minutes. If you continue to be under 80 after 15 minutes, eat 15g of sugar more, and repeat. If BG is over 100 on recheck, no need to consume more sugar, and recheck BG in another 15 minutes. If your BG is lower than 80, you are likely to feel shaky, sweaty and lightheaded. This is a signalthat your body needs more sugar. Quickly eat or drink a 15g of something sweet, such as: 4 ounces fruit juice or regular (not diet) soda 6 lifesavers small box of raisins 4 glucose tablets (~15 gm of glucose) If your BG is very low <50, you can double the amount above or take 30 gm of glucose gel/tablets. Once you are feeling better, try to determine why your BG was so low. Common causes of hypoglycemiainclude skipping a meal, lots of exercise, too much insulin or any combination of these things. Understanding the cause my help you to avoid another low BG in the future. Test blood sugars prior to driving, make sure glucose levels are greater than 100mg/dl. If not havea snack and retest blood sugars in 15 minutes. Carry a glucose source on you at all times. Call your diabetes provider for blood sugars less than 80 or greater than 300 twice in one day to have your insulin doses adjusted. * Patient Instructions* Chalino Cristina MD - 03/29/2024 12:19 PM EDT [facility] Department of Surgical Oncology Discharge Instructions CALL YOUR PHYSICIAN'S OFFICE IF: You have a fever greater than 101 degrees Farenheit (38.3C) within one month of your surgery. You have diarrhea or vomiting for >24 hours, stop having bowel movements and/or passing flatus, have pain with urination. You have worsening pain, not controlled with your pain medication. You develop redness, swelling, or new drainage from your wound. Medications: [] Pain Control Some incision soreness can be expected. Take your pain medication as needed and prescribed. Taper use of pain medication as pain lessens. [] Non-narcotic pain medication - We recommend alternating with tylenol 650mg and ibuprofen 400-600mg every 6 hours (ie; tylenol at12pm, ibuprofen 3pm, tylenol 6pm, ibuprofen 9pm). - Do not take more than 4,000mg (4g) of tylenol in 24hours. Do not take ibuprofen on an empty stomach. [] Antibiotics - You have been prescribed 1g 3 times daily of Aumentin and 600mg once daily of fluconazole for 7days to treat peripancreatic abscess. [] Other Medication(s) - The remainder of your medications are listed in the first section of the After Visit Summary. Driving Restrictions: - No driving if you are too sore from surgery to enter or exit your vehicle comfortably, or if you are too sore to easily check your blind spot. No driving while using narcotic pain medications. Shower: - It is ok to shower. You can shower per usual routine and let soapy water run over your incision. Pat incision dry with a clean, dry towel. Do not submerge the wound under water (no swimming or soaking) for at least 6 weeks, or until approved by your surgeon. Diet: [] You have been cleared to resume your carb-controlled diet - We recommend eating a regular healthy diet (ie; fresh fruits, vegetables and fiber-containing foods will assist in wound healing,) Activity: - It is normal to feel tired after surgery/hospitalization. Be as active as tolerated as this will improve recovery and prevent blood clots. - You should avoid any heavy lifting for 4 weeks after surgery. A gallon of milk is a good estimateof the maximum you should be lifting while your wounds heal. -We recommend taking several slow, short walks each day for the first two weeks, and gradually increase your distance. We recommend at least 4 times a day. Wound/Incision Care: Closure: Your skin incision(s) is closed with: [] Edd - Your edd have been removed and steri-stripes placed. Dressing: Your drain incision site is covered with a dressing with gauze and tegaderm. Infection: Observe for changes and alert the clinic if new/worsening redness or drainage. Things to avoid: Do not use creams, oils, or ointments on the wound. Lines/Drains/Tubes: [] You are being discharged with a BASIA drain. Please see the multidisciplinary instructions below for details. Who to call? If you have concerns or questions: - During the day, it is best to call the General Surgery Clinic to speak with the Surgery nurses. The number is [phone]. - During the night or weekends call the [facility] kitchen operator at [phone] and ask to speak to the surgery resident conversion developer for general surgery. Please note: Your surgeon may not be Perfume Maker, especially during the night or on weekends, so be ready to describe yourself and your surgery when you call. Follow up appointments: Future Appointments Date Time Provider Department Center 04/08/2024 12:10 PM [facility] IR ROOM 1 [facility] Rad 04/08/2024 1:30 PM Rudi Hernandez MD [facility] SURG [facility] 04/08/2024 2:[address] [facility] SURG [facility] 04/20/2024 11:00 AM Rodriguez Fowler MD [facility] HEM ONC [facility] 05/21/2024 9:00 AM Nighat López MD [facility] ENDO [facility] [x] Follow-up appointment with General Surgery has already been scheduled [x] A follow-up appointment with your PCP has been scheduled for Friday04/14/24 @ 10AM - please discuss going back on Metformin at this appointment. If you need a prior authorization, please call the General Surgery Clinic nurses [phone] for prior authorizations assistance documented in this encounter Medications at Time [...] 2 times daily. 30 tablet 03/08/2024 Insulin [place], Disposable, (BD Ultra-Fine Micro Pen Needle) 32 gauge x 1/4 Needle 1 each by [facility].(Non-Drug; Combo Route) route 2 times daily. 300 [...] for 7 days. 42 tablet 04/01/2024 04/08/2024 fluconazole (Diflucan) 200 mg tablet Take 3 tablets by mouth daily for 6 days. 18 tablet 04/02/2024 04/08/2024 unvkdt-wiarsgep-qgzri se (Zenpep) 40,000-126,000- 168,[address] capsuleIndications:H/ O Whipple procedure Take 2 capsules by mouth 3 times daily. Take 2 capsules with meals and 1 capsule with snacks. 300 capsule 3 03/22/2024 04/09/2024 oxyCODONE (Roxicodone) 5 mg tablet Take 1-2 tablets by mouth every 4 hours as needed for Pain (5mg for moderate pain 4-6 not controlled with Tylenol, 10mg for severe pain 7-10 not controlled with Tylenol). 10 tablet 03/08/2024 04/08/2024 documented as of this encounter Progress Notes * Li Lewis RN - 04/01/2024 3:14 PM EDT Pt d/c to home w/services per md order. Patient AOx4, VSS on RA, Denies pain, N/V, SOB, CP at time of discharge. Patient ambulating independently at this time. PICC removed prior to d/c. BASIA in place,education complete. All belongings home with patient. All discharge instructions reviewed with patient. All questions answered. Report to [facility]NA faxed. Please see flowsheet for full assessment. Li Lewis RN * Isidra Hickey APRN - 04/01/2024 11:30 AM EDT Glucose Management Team Inpatient Progress Note HPI Charles Nick is a 48 y.o. 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 Original consult completed: 03/25/2024 Kristen Meza APRN Patient Interview & Updates BG much improved overnight, only requiring 6u correction PO intake has improved, so stopping TPN today, and likely going home. He is interested in trialing a CGM - he will talk to PCP about a prescription. Lina 3 CGM sample placed on left arm. Objective Temp: [36.7 ??C (98.1 ??F)-36.9 ??C (98.4 ??F)] Heart Rate: -- Resp: [14-18] BP: (78-135)/(64-91) SpO2: [95 %-98 %] Heart Rate from SpO2: [71 bpm-96 bpm] Wt Readings from Last 3 Encounters: 03/30/24 119.7 kg (263 lb 14.3 oz) 03/25/24 116.1 kg (256 lb) 03/17/24 119.7 kg (263 lb 14.4 oz) Current Regimen from Previous Note Insulin glargine 10 units qd Lispro Correction: Moderate 1:20 correction for BG >140 BG Q4 Lispro Meal-associated: 1:8g insulin to carb ratio (started at lunch 03/31) Regular insulin for TPN: For Custom TPN: 220g in 2400mL - goal rate 100 mL/hr: Give 60u of Regular insulin in the TPN bag (based on 1:3.6 I:C ratio). Diet: clear liquids Monitoring: BG Q4 Relevant meds: TPN; TDD: 03/31: 88u (10u basal, 60u TPN R, 14u correction) 03/30: 75u (10u basal, 50u TPN R, 15u lispro correction) - 11u correction overnight 03/29: 84u (10u basal, 32u TPN R, 21u TPN lispro 21u correction) - 10u correction overnight. 03/28 36u Recent Glucose Levels Recent Labs 04/01/24 0733 04/01/24 0309 03/31/24 2356 03/31/24 1922 03/31/24 1615 03/31/24 1220 03/31/24 0805 03/31/24 0451 03/30/24 2346 03/30/24 1923 03/30/24 1628 03/30/24 1159 POCGLU 156 184 146 145 155 263* 164 217* 196 169 174 184 ASSESSMENT Charles Nick is a 48 y.o. years old male with PMH significant for DM2 (Last A1C of 8.9% 02/2024) who was admitted on 03/24/2024 for new peripancreatic abscess on CT, and euglycemic DKA likely due to SGLT-2i (admission BHOB 6.3; AG 21; BG 143). Diabetes suboptimally controlled and complicated by TPN, euglycemia DAK. Currently variable blood glucose levels while hospitalized requiring adjustment ofinsulin regimen and DM medications. Dax is going home today off TPN. He was managed with Farxiga and glargine at home, so he can return with glargine 10u (current dose) and will NOT continue Farxiga due to euglycemic DKA. He may needfurther support for his glucose, and can talk to his PCP about restarting Metformin XL and about prescribing a CGM. DC instructions discussed with Charles and Jenelle at the bedside. Team updated. PLAN Insulin glargine 10 units qd Lispro Correction: Moderate 1:20 correction for BG >140 BG Q4 Lispro Meal-associated: 1:8g insulin to carb ratio Regular insulin for TPN: For Custom TPN: 220g in 2400mL - goal rate 100 mL/hr: Give 60u of Regular insulin in the TPN bag (based on 1:3.6 I:C ratio). Diet: clear liquids Monitoring: BG Q4 Discharge Planning/publishing director diabetes care: Medications - Outpatient treatment regimen recommendations pending based on the hospital course. Home: Farxiga 10 mg - DO NOT RESART Lantus 8 units daily - DC on hospital dose Consider restarting Metformin XL 500mg BID in the outpatient setting to help with overall glucose control. Monitoring - continue BG 2-3/day 50 minutes were spent over the course of the day with this patient encounter including time spent in chart review and relevant lab result review, assessment of and counseling with the patient on diabetes and treatment plan, reviewing all glucose and insulin data, and coordination with the consulting service. Isidra Hickey, EDGE STAINER, DNP, -[facility] Inpatient Diabetes Management Team Team pager #[phone] Diabetes Discharge Instructions & Recommendations Check your blood sugars when you wake up and before bedtime for the next couple weeks at home - keep a log to take to your appointments. DO NOT restart Farxiga Metformin: Sounds like you have not been on this for some time. Talk to your diabetes provider about possibly restarting Metformin XL 500mg twice daily for improved glucose management (and may less insulin) Lantus: restart this the day after discharge. Follow-up with Primary care provider in the next 2-4 weeks for further diabetes management. Instructions for insulin glargine (Lantus) Insulin (LONG ACTING) Please inject Lantus 10 units every morning. If your fasting blood sugars are above 150mg/dl two days in a row, please increase your Lantus by 2units. If your fasting blood sugars are below 100mg/dl two days in a row, please decrease your Lantus by 2units. This dose now becomes your new daily dose unless it need to be further adjusted based on future glucose readings. Treatment of Low Blood Sugar (Hypoglycemia) 15:15 rule - if your blood sugars is under 80, eat 15g of sugar, and recheck your blood sugar in 15minutes. If you continue to be under 80 after 15 minutes, eat 15g of sugar more, and repeat. If BG is over 100 on recheck, no need to consume more sugar, and recheck BG in another 15 minutes. If your BG is lower than 80, you are likely to feel shaky, sweaty and lightheaded. This is a signalthat your body needs more sugar. Quickly eat or drink a 15g of something sweet, such as: 4 ounces fruit juice or regular (not diet) soda 6 lifesavers small box of raisins 4 glucose tablets (~15 gm of glucose) If your BG is very low <50, you can double the amount above or take 30 gm of glucose gel/tablets. Once you are feeling better, try to determine why your BG was so low. Common causes of hypoglycemiainclude skipping a meal, lots of exercise, too much insulin or any combination of these things. Understanding the cause my help you to avoid another low BG in the future. Test blood sugars prior to driving, make sure glucose levels are greater than 100mg/dl. If not havea snack and retest blood sugars in 15 minutes. Carry a glucose source on you at all times. Call your diabetes provider for blood sugars less than 80 or greater than 300 twice in one day to have your insulin doses adjusted. * Alma Dasilva RD - 04/01/2024 7:30 AM EDT Images from the original note were not included. Nutrition Progress Note Charles Nick is a 48 y.o. 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 Reason for Assessment: TPN, Follow-up Nutrition Recommendations: PN to end today, set to run out at 1759 Carb Control Lvl 2 diet (60/60/75) - Monitor and encourage po intake - document % intake in flowsheets Pt meets criteria for severe protein calorie malnutrition in the setting of acute illness as outlined below Continuum of Care Plan Referral to Outpatient Services: follow up with outpatient RD (at [facility]) I was able to discuss plan with provider Surg Onc Carly Cristina MD. Current Nutrition Regimen: Active Orders Diet Carb Control diet 60/60/75 CHO counting level 2 Frequency: Effective Now Number of Occurrences: Until Specified TPN Orders: TPN Medication Recent History (Show up to 3 orders; newest on the left. Changes between the two most recent orders are indicated.) Start date and time 03/31/2024 1800 03/30/2024 1800 03/29/2024 1800 Adult TPN [[id number]] Adult TPN [[id number]] Adult TPN [[id number]] Order Status Discontinued Completed Completed Last Admin New Bag at 03/31/2024 1709 by Soco Mohamud RN New Bag at 03/30/2024 1704 by Micha Butler RN New Bag at 03/29/2024 1750 by Rosie Gaston RN Frequency Continuous (TPN) Continuous (TPN) Continuous (TPN) Medications insulin regular human 60 Units 50 Units 32 Units Additives adult multivitamin 10 mL 10 mL 10 mL adult trace elements Zn-Cu-Mn-Se (Tralement) 1 mL 1 mL 1 mL thiamine 100 mg 100 mg 100 mg Electrolytes potassium phosphate 40 mmol 40 mmol 40 mmol potassium chloride 68 mEq 68 mEq 68 mEq sodium chloride 75 mEq 75 mEq 90 mEq calcium gluconate 14 mEq 14 mEq 14 mEq magnesium sulfate 20 mEq 20 mEq 20 mEq Dextrose dextrose 70% 220 g 220 g 160 g Amino Acids amino acid 15% no.5 (Clinisol) 110 g 110 g 104 g QS Base sterile water 513.68 mL 513.78 mL 1,085.91 mL Lipid fat emulsion soy/MCT /olive/fish (SMOFlipid) 20% 20% 65 g 65 g 55 g Energy Contribution Proteins 440 kcal 440 kcal 416 kcal Dextrose 748.03 kcal 748.03 kcal 544.07 kcal Lipids 650 kcal 650 kcal 550 kcal Total 1,838.03 kcal 1,838.03 kcal 1,510.07 kcal Electrolyte Ion Calculated Amount Sodium 75 mEq 75 mEq 90 mEq Potassium 126.67 mEq 126.67 mEq 126.67 mEq Calcium 14 mEq 14 mEq 14 mEq Magnesium 20 mEq 20 mEq 20 mEq Aluminum -- -- -- Phosphate 40 mmol 40 mmol 40 mmol Chloride 143 mEq 143 mEq 158 mEq Acetate 93.13 mEq 93.13 mEq 88.05 mEq Chloride: Acetate Ratio 1.535 1.535 1.795 Trace Elements Total Trace Elements 1 mL 1 mL 1 mL Copper 0.3 mg 0.3 mg 0.3 mg Manganese 55 mcg 55 mcg 55 mcg Selenium 60 mcg 60 mcg 60 mcg Zinc 3 mg 3 mg 3 mg Other Total Amino Acid 110 g 110 g 104 g Total Amino Acid/kg 0.92 g/kg 0.92 g/kg 0.89 g/kg Glucose Infusion Rate 1.28 mg/kg/min 1.28 mg/kg/min 0.93 mg/kg/min Osmolarity 1,357.47 1,357.47 990.95 Volume 2,000 mL 2,000 mL 2,400 mL Rate 83.3 mL/hr 83.3 mL/hr 100 mL/hr Dosing Weight 119.7 kg 119.7 kg 116.5 kg Infusion Site [facility] Total Multi-vitamins 10 mL 10 mL 10 mL Assessment: Lab Results Component Value Date NA 137 04/01/2024 K 4.8 04/01/2024 CL 100 04/01/2024 CO2 29 04/01/2024 BUN 10 04/01/2024 CREATININE 0.70 (L) 04/01/2024 ESTGFR 113 04/01/2024 MAGNESIUM 0.97 04/01/2024 CALCIUM 8.9 04/01/2024 PHOS 4.0 04/01/2024 AST 10 03/29/2024 ALT 8 03/29/2024 ALKPHOS 66 03/29/2024 BILITOT 0.2 03/29/2024 BILIDIR 0.1 03/29/2024 TRIG 91 03/29/2024 HA1C 8.9 (H) 03/02/2024 Lab Results Component Value Date POCGLU 192 04/01/2024 POCGLU 156 04/01/2024 POCGLU 184 04/01/2024 POCGLU 146 03/31/2024 POCGLU 145 03/31/2024 POCGLU 155 03/31/2024 Patient Lines/Drains/Airways Status Active Nutritional LDAs Name Placement date Placement time Site Days Drain/Device Site 03/25/24 1036 anterior collapsible closed device 03/25/24 1036 -- 7 Oxygen Therapy / Airway Device: None (Room air) Last Bowel Movement: 03/30/24 Intake/Output Summary (Last 24 hours) at 04/01/2024 1516 Last data filed at 04/01/2024 0825 Gross per 24 hour Intake 3362 ml Output 180 ml Net 3182 ml Relevant medications: insulin glargine, insulin lispro, Zenpep 20 x2 TID, protonix, miralax, pericolace, reglan, others reviewed Anthropometrics: Admit Weight: 116.48 kg Estimated body mass index is 33.88 kg/m?? as calculated from the following: Height as of 03/25/24: 188 cm (6' 2). Weight as of this encounter: 119.7 kg (263 lb 14.3 oz). [place] Body Weight (IBW) (kg): 86.36 Wt Readings from Last 10 Encounters: 03/30/24 119.7 kg (263 lb 14.3 oz) 03/25/24 116.1 kg (256 lb) 03/17/24 119.7 kg (263 lb 14.4 oz) 03/07/24 (!) 138.6 kg (305 lb 8.9 oz) 02/03/24 131.5 kg (289 lb 12.8 oz) 01/24/23 125.7 kg (277 lb 1.6 oz) 01/06/23 124.3 kg (274 lb) 12/25/22 124.6 kg (274 lb 11.2 oz) 12/12/21 130.6 kg (288 lb) 12/22/18 (!) 139.5 kg (307 lb 9.6 oz) Patient Vitals for the past 168 hrs: Weight 03/30/24 0734 119.7 kg (263 lb 14.3 oz) Weight Source: Standing Scale Estimated / Assessed Needs: Kcal / K - 2592 Kcal (25 Kcal/Kg - 30 Kcal/Kg) IBW Estimated Protein Needs: 104 g - 130 g (1.2 g/Kg - 1.5 g/Kg) IBW Nutrition intake and intake history / interview: 04/01: PN to end today w/ anticipation for dc. Pt cites appetite is still low, newswriter observed 100% intake of vegetable soup for lunch ~50kcal and 2g protein. Encourage pt to have 5-6 smaller meals kirk may feel full faster and to have protein intake at each eating occurrence. Reviewed good sourcesof protein including ONS. Pt does not like ONS offered. Pt's family present at the bedside were encouraging pt as well but understanding of desires. Pt had questions regarding BG control, discussed protein and CHO source pairing for good BG control. Pt feels he knows what he needs to do to be successful but needs to find the motivation to do so and stick with it. 03/31: PN continues w/ diet advanced to Carb Control lvl 2. Will keep PN calories the same, meets ~85% of needs. Increasing insulin per Endo rec, 1:3.6 I:C. 03/30: Lytes improved and no replacements required yesterday. Increasing PN calories toward goal, adjusting I:C per endo and reducing volume to 2L given NG clamped. Updated standing scale weight collected by RN. 03/29: Per discussion with team, plan to continue PN. Increasing caloric support in step-[place] fashion toward goal. Adding insulin to PN per Endo recs. Increasing K and Phos given signs of refeeding and continued need for repletion outside of PN. Adjusting Cl:Acetate ratio. Pt with 1.75L NG output x 24 hrs, plan for clamp trial today per team. Continuing current TPN volume. 03/27: Consult received for TPN. Electrolytes WNL on AM labs. Initial PN ordered to provide ~ 50% estimated kcal needs and 100% protein needs. 03/26: Consult received for TPN. TPN is not safe to start at this time d/t electrolyte abnormalitiesand hyperglycemia iso DKA. To start PN, BG <200, phos >2 and K >3. Pt with 11.7% weight loss in 2 months. Since Whipple procedure 03/01/24, reports eating mashed up foods 2-3 times/day (~1/2 cup portion) plus one Ensure ONS/day. Pt very fatigued during visit; wished to rest. Nutrition Focused Physical Exam: Performed (03/26/24 KL) . Subcutaneous Fat Loss Orbital region: Mild Upper arm region (triceps/biceps): Not assessed Thoracic and Lumbar regions (ribs, lower back, and maxillary line): Not assessed Lean Muscle Loss Moravian region (temporalis muscle): Mild Clavicle bone region (pectoralis major): Mild Dorsal hand (interosseous muscle): Not assessed Shoulder (deltoid): Not assessed Scapular bone region (latissimus dorsi, trapezius muscles): Not assessed Thigh region (quadriceps muscle): None present Posterior calf region (gastrocnemius muscle): None present Fluid Accumulation Fluid Accumulation: Not assessed Malnutrition Diagnosis: Identified: less than or equal to 50% of estimated energy requirement for greater than or equal to 5 days, greater than 7.5% weight loss in 3 months, and Mild Lean Muscle Loss is consistent with Severe protein-calorie malnutrition in the setting of acute illness or injury (Bernard mae al, JPEN J Parenteral Enteral Nutr. 2011; 36(3): 273-83) Nutrition to continue to follow up while inpatient Alma Dasilva RD * Isidra Hickey APRN - 03/31/2024 10:25 AM EDT Glucose Management Team Inpatient Progress Note HPI Charles Nick is a 48 y.o. 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 Original consult completed: 03/25/2024 Kristen Meza APRN Patient Interview & Updates BG continue to be above target overnight with new TPN dextrose and insulin, requiring 11u correction with BG continued above target. NGT removed. Diet advanced to clear liquids, and then to Carb Controlled 60/60/75g. He ate 2 pieces of toast with jam this morning, and very much enjoyed it. He is not sure what to order for other meals - recommended starting simple and working up! Objective Temp: [36.8 ??C (98.2 ??F)-37 ??C (98.6 ??F)] Heart Rate: [68-75] Resp: [16-18] BP: (126-158)/(88-98) SpO2: [97 %-98 %] Heart Rate from SpO2: [68 bpm-79 bpm] Wt Readings from Last 3 Encounters: 03/30/24 119.7 kg (263 lb 14.3 oz) 03/25/24 116.1 kg (256 lb) 03/17/24 119.7 kg (263 lb 14.4 oz) Current Regimen from Previous Note Insulin glargine 10 units qd Lispro Correction: Moderate 1:20 correction for BG >140 BG Q4 Regular insulin for TPN: For Custom TPN: 220g in 2400mL - goal rate 100 mL/hr: Give 50u of Regular insulin in the TPN bag (based on 1:4.4 I:C ratio). Diet: Sips & Chips Monitoring: BG Q4 Relevant meds: TPN; TDD: 03/30: 75u (10u basal, 50u TPN R, 15u lispro correction) - 11u correction overnight 03/29: 84u (10u basal, 32u TPN R, 21u TPN lispro 21u correction) - 10u correction overnight. 03/28 36u Recent Glucose Levels Recent Labs 03/31/24 0805 03/31/24 0451 03/30/24 2346 03/30/24 1923 03/30/24 1628 03/30/24 1159 03/30/24 0732 03/30/24 0419 03/29/24 2338 03/29/24 1936 03/29/24 1546 03/29/24 1156 POCGLU 164 217* 196 169 174 184 166 184 212* 159 167 238* ASSESSMENT Charles Nick is a 48 y.o. years old male with PMH significant for DM2 (Last A1C of 8.9% 02/2024) who was admitted on 03/24/2024 for new peripancreatic abscess on CT, and euglycemic DKA likely due to SGLT-2i (admission BHOB 6.3; AG 21; BG 143). Diabetes suboptimally controlled and complicated by TPN, euglycemia DAK. Currently variable blood glucose levels while hospitalized requiring adjustment ofinsulin regimen and DM medications. Overall improvement in blood sugars with continued insulin adjustment for TPN. He continued to [id number] of correction overnight with new TPN dosing, and BG were over 180 overnight. Plan to add 10u more to TPN tonight. He has started eating today, so will follow to see what his lunch BG is and decide if he needs mealtime insulin if BG >180. Likely start conservatively with 1:8g ICR. His TPN needs may reduce if PO intake is consistent. Recommendations made to primary team and RD for TPN insulin. We will continue to follow. PLAN Insulin glargine 10 units qd Lispro Correction: Moderate 1:20 correction for BG >140 BG Q4 START Lispro Meal-associated: 1:8g insulin to carb ratio at lunch INCREASE Regular insulin for TPN: For Custom TPN: 220g in 2400mL - goal rate 100 mL/hr: Give 60u ofRegular insulin in the TPN bag (based on 1:3.6 I:C ratio). Diet: clear liquids Monitoring: BG Q4 Discharge Planning/FCI diabetes care: Medications - Outpatient treatment regimen recommendations pending based on the hospital course. Home: Farxiga 10 mg - DO NOT RESART Lantus 8 units daily - DC on hospital dose Monitoring - continue BG 2-3/day 50 minutes were spent over the course of the day with this patient encounter including time spent in chart review and relevant lab result review, assessment of and counseling with the patient on diabetes and treatment plan, reviewing all glucose and insulin data, and coordination with the consulting service. Isidra Hickey APRN, DNP, -[facility] Inpatient Diabetes Management Team Team pager #[phone] * Chalino Cristina MD - 03/31/2024 9:58 AM EDT Surgical Oncology Inpatient Progress Note Patient Name: Charles FLANAGAN; Age: 4 1975; 48 y.o. Room/Bed: 458/[facility] Today's Date: 03/31/24 ID: Charles Nick is a 48 y.o. 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 24 Hour Events: - Reviewed by Infectious Diseases, made recs - On TPN - Has tolerated clear liquids , no abdominal discomfort or emesis - BM x2 - NGT dc'd after trial Subjective: Reports feeling much better Hospital Course: 03/24 HD1: Transferred from OSH for generalized malaise and dizziness with CT demonstrating peripancreatic fluid collection. WBC 9.3 on admission. Admitted to surgical oncology, started on IVF, broad spectrum abx with ceftriaxone/flagyl, with plan for IR drain placement tomorrow. 03/25 HD2: CO2 8 c/f anion gap metabolic acidosis - lactate WNL 1.2, BOHB 6.3 with POC glucose WNL c/f euglycemic DKA. Hospital medicine consulted for management of DKA, started on DKA protocol with insulin gtt. Insulin gtt intermittently paused for hypokalemia, aggressively repleted. NGT placed for nausea and bilious emesis. Underwent IR peripancreatic drain placement - fluid amylase >7500 confirming clinically significant postop pancreatic leak/fistula, gram stain with GPC, GNR, GPR. Hgb 12.7 c/w dilutional anemia. 03/26 HD3: Continue broad spectrum abx. PICC placed. F/u Hospital Medicine recs regarding DKA treatment: anion gap closed and bicarb > 20, transitioned off insulin gtt onto glargine 10u + moderate sliding scale for correction. Aggressive repletion of K and Phos. 03/27 HD4: BASIA drain output 125cc; NGT output 1300cc; Start TPN today through PICC line, continue NGTto suction. 03/28 HD5: Patient had TPN started yesterday evening, which improved his subjective strength. NGT remains elevated at 1450cc. Peripancreatic fluid growing Strep milleri, Prevotella buccae, and rare yeast- continues on Zosyn, awaiting sensitivities. 03/29 HD6: Continues on ceftriaxone/flagyl while waiting fluid sensitivities, started on fluconazole. NGT clamp trial with 300cc output - NGT returned to [facility] and started on Reglan for pro-motility (?Component of gastroparesis given his DM). Insulin added to TPN. 03/30 HD7: Repeat NGT clamp trial on Reglan. Consult ID for abx regimen. Suppository. Floor status. 03/31 HD8: ID recs noted. Nil abdominal discomfort or emesis. On Ceftriaxone, Metronidazole and Fluconazole. Objective Physical Exam Vitals: Temp: [36.8 ??C (98.2 ??F)-37 ??C (98.6 ??F)] Heart Rate: [68-79] Resp: [16-18] BP: (126-158)/(88-98) SpO2: [95 %-98 %] Heart Rate from SpO2: [68 bpm-79 bpm] Gen: NAD, resting comfortably, pleasant, conversant HEENT: sclerae nonicteric CV : RRR Pulm: breathing comfortably on RA, no respiratory distress Abd: non-distended, soft, non-tender. Drain noted in place, draining moderate volume sero-purulent output. : Voiding independently. Ext: SCDs in place. Skin: warm, dry Labs: Last 3 wbc, hgb, hct plt Recent Labs 03/29/24 0430 03/28/24 0030 03/27/24 0014 WBC 6.5 5.4 5.4 HGB 12.0* 11.5* 12.0* HCT 36.6* 34.8* 36.7* PLATELET 152 185 215 Last 3 Lytes Recent Labs 03/31/24 0830 03/30/24 0600 03/29/24 0430 NA 136 139 136 K 4.7 4.0 3.3* CL 100 100 95* CO2 29 31 31 BUN 8* 7* 5* CREATININE 0.64* 0.59* 0.54* Last 3 LFTs Recent Labs 03/29/24 0430 03/08/24 0444 03/07/24 0453 AST 10 11 11 ALT 8 22 25 ALKPHOS 66 94 88 BILITOT 0.2 0.4 0.4 BILIDIR 0.1 -- -- Last Ca, Mg, Phos Recent Labs 03/31/24 0830 CALCIUM 8.6 PHOS 3.6 MAGNESIUM 0.93 Drains: BASIA drain noted, draining sero-purulent moderate volume output. Assessment: Charles Nick is a 48 y.o. 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 Doing much better today, seen by ID yesterday, recs noted. On TPN and tolerating clears. PROBLEM BASED PLANS: - Advance to carb-controlled diet - Place PO ID recommendations Dispo: Floor status Code status: Attempt Cardiopulmonary Resuscitation - Inpatient Signed: Chalino Cristina MD Surgical Oncology Service Team Pager #[phone] 03/31/24 9:59 AM * Jyoti Nelson RN - 03/30/2024 7:44 PM EDT OUTCOME EVALUATION NOTE: OUTCOME SUMMARY: Charles is A&Ox4. VSS on RA. Denies any pain. Blood glucose checked, insulin provided per orders, see MAR. TPN infusing per orders, see MAR. Pended to new room, report called by [facility] dayshift GRETCHEN Muse to [facility] dayshift GRETCHEN Fernando. Patient sent to new room with all belongings. * Sharon Fernandez PTA - 03/30/2024 1:46 PM EDT Physical Therapy Note 3 Patient profile: Per H&P Charles Nick is a 48 y.o. 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 Patient has been feeling increasing fatigue since discharge from Whipple procedure approximately 10days ago. He takes his BP at home and has noticed that it is low and he feels dizzy and SOB with activity with several episodes of pre/syncope. He does not have abdominal pain but does have a small area of dehiscence of his midline incision with minimal serous drainage. He has tolerated food without nausea and vomiting but had an episode of large volume emesis earlier today. No chest pain or palpitations. No fevers or chills.Patient has not been taking home dose amlodipine or lasix due to hypotension. He does not smoke and drinks alcohol occasionally. No recreational drug use. No new medical problems since his last admission. He initially presented to [facility] and was transferred here for further care. Interval History: Per last general surgery note on 03/30/2024 Continues on ceftriaxone/flagyl, started on fluconazole. - NGT clamp trial with 300cc output - NGT returned to WS and started on Reglan for pro-motility (? Component of gastroparesis given his DM). 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 However between last admit for whipple procedure and this admit, acknowledges significant increase in fatigue and increased need of support from partner. Equipment at home: walking stick Support at home: Jenelle Fall history: reports none Precautions/Special Considerations: full code, up with assistance, sips and chips Lines: PICC, N/o tube, BASIA drain, PIV Mobility and Positioning Recommendations: Pt to utilize straight cane and SBA for ambulation and transfers w/ hotel staff member as able Pt encouraged to ambulate frequently w/ staff and getting into the BR for toileting, walking out inthe gustafson >/=3 times a day as able. Please encourage up to chair for meal times as able. Subjective: I feel pretty good, I just want this tube out in reference to NGT, was d/c'd during session in PM Objective: Patient seen for physical therapy and demonstrated the following: Pain: Pt reported increased discomfort w/ NGT during AM session, did not limit participation w/ therapy Vital Signs: VSS throughout session on RA Cognition/Vision: Pt was alert and cooperative w/ therapy Bed Mobility: Supine to Sit: independent Sit to Supine: independent Transfers: Sit to Stand: supervised, Performed from EOB and toilet, no LOB noted using no AD and straight cane Stand to Sit: supervised, good eccentric control using straight cane and no AD Gait: Distance: 15 ft to BR, 150 ft, 150 ft Device used: no AD and straight cane Level of assist: close supervision, line management Gait mechanics: min trunk sway, no overt LOB noted, fair gait speed, step length and foot clearance Stairs: Performed 10 step ups onto 6 platform step, ascending forwards, descending backwards w/ step-to gait pattern, no LOB noted, performed w/ close supervision Balance: Sitting Static: Good Sitting Dynamic: Good Standing Static: Good Standing Dynamic / Gait: Good Education: Pt educated on importance of continued participation w/ therapy and mobilization OOB, transfer training, gait training, energy conservation, therex, stair training Provided pt w/ post op shoes w/ offloading insole placed into L shoe as pt was noted to have ulcer and wound on plantar surface of forefoot Pt left in bed/chair position, with all needs met, and with call ibarra in reach RN aware following visit. Assessment: Charles Nick was seen today for physical therapy treatment session for continuation of POC. Pt continues to make good progress towards his functional goals, he was able to mobilize w/ and w/o a device w/ fair gait mechanics. He performed bed mobility independently and was able to complete multiple stairs. Based on current presentation, pt will be able to safely d/c home w/ VNA PT and assistance from family members. Will see pt one more session to ensure post op shoes are sufficient for ambulating longer distances. Pt will benefit from ongoing therapeutic interventions to achieve therapy goals. Inpatient Physical Therapy Plan: 1-3 more times for strength, endurance and balance. Discharge Recommendations: Based on current findings- home with home health Consult Recommendations: No other consults recommended at this time. Equipment needs: None Physical Therapy Goals: To be achieved by 03/31/24: (ongoing unless otherwise noted) Pt. to demonstrate knowledge of safety limitations and precautions and will appropriately request assistance for functional activities and to mobilize. Pt. to perform bed mobility independently. met Pt. to perform STS transfers with modified independence using LRAD . Pt. to ambulate >150 feet with modified independence using LRAD . Pt. to ambulate up/down >13 step/stairs using one rail with supervision. Time IN / OUT: 2874-5169 / 2872-7130 Total Time: 34 minutes; TEF 2 Sharon Fernandez PTA Pager: [phone] Physical Therapy Inpatient Rehabilitation Department * Leonarda Montenegro, RN - 03/30/2024 11:53 AM EDT Images from the original note were not included. During VAS Purposeful Rounding, an assessment of your patient's venous access was performed fby theVascular Access Service. The following tasks were performed if needed and communicated to the bedside RN Choose all that apply: [] PIV(s) checked for patency if daily need for flush needs to be performed [x] CVAD was checked for patency if daily flush needs to be performed [x] IV tubing clamped or capped if needed [x] Visual inspection of your patient's central line dressing integrity [] Review of indications for vascular access [x] A photo was taken of your patient's central line [] Visual inspection of your patient's IV dressing integrity [] Other While rounding an intervention was needed and communicated to the bedside RN Choose all that apply: [] Nonocclusive IV dressing addressed [] Nonocclusive CVAD dressing (please identify type of line) [] Infusion site leaking [] IV not patent and removed [] IV not indicated [] IV placed [] IV restarted [] Implanted Port, PICC or ML dressing changed if needed (either PRN or weekly) [] Other * Isidra Hickey APRN - 03/30/2024 11:45 AM EDT Glucose Management Team Inpatient Progress Note HPI Charles Nick is a 48 y.o. 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 Original consult completed: 03/25/2024 Kristen Meza APRN Patient Interview & Updates TPN dextrose increasing today to 220g. He needed 10u correction overnight with TPN running with insulin in the bag. NGT clamped - hoping to have it out today and start with PO intake. Objective Temp: [36.4 ??C (97.5 ??F)-36.9 ??C (98.4 ??F)] Heart Rate: [63-79] Resp: [18] BP: (119-144)/(84-98) SpO2: [93 %-96 %] Heart Rate from SpO2: [63 bpm-78 bpm] Wt Readings from Last 3 Encounters: 03/30/24 119.7 kg (263 lb 14.3 oz) 03/25/24 116.1 kg (256 lb) 03/17/24 119.7 kg (263 lb 14.4 oz) Current Regimen from Previous Note Insulin glargine 10 units qd Lispro Correction: Moderate 1:20 correction for BG >140 BG Q4 Regular insulin for TPN: For Custom TPN: 160g in 2400mL - goal rate 100 mL/hr: Give 32u of Regular insulin in the TPN bag (based on 1:5 I:C ratio). Diet: Sips & Chips Monitoring: BG Q4 Relevant meds: TPN; TDD: 03/29: 84u (10u basal, 32u TPN R, 21u TPN lispro 21u correction) - 10u correction overnight. 03/28 36u Recent Glucose Levels Recent Labs 03/30/24 1159 03/30/24 0732 03/30/24 0419 03/29/24 2338 03/29/24 1936 03/29/24 1546 03/29/24 1156 03/29/24 1116 03/29/24 0722 03/29/24 0411 03/29/24 0005 03/28/242050 POCGLU 184 166 184 212* 159 167 238* 184 187 195 187 171 ASSESSMENT Charles Nick is a 48 y.o. years old male with PMH significant for DM2 (Last A1C of 8.9% 02/2024) who was admitted on 03/24/2024 for new peripancreatic abscess on CT, and euglycemic DKA likely due to SGLT-2i (admission BHOB 6.3; AG 21; BG 143). Diabetes suboptimally controlled and complicated by TPN, euglycemia DAK. Currently variable blood glucose levels while hospitalized requiring adjustment ofinsulin regimen and DM medications. Overall improvement in blood sugars with insulin added to the TPN last night. BG continued >180 overnight requiring total 10u of correction overnight. Today, RD is increasing dextrose to 220g, andso insulin will also be increased with slightly more insulin/carbs to avoid need for corrections. Colton had several questions about discharge planning. At this time, I suspect he will go home on glargine and NO Farxiga d/t Euglycemic DKA. He denies taking Metformin between admission or even prior to last admission, and therefore doesn't need to restart it at this time - I did share thatif A1c is not well controlled on glargine alone, he would benefit from restarting Metformin, ideally long-acting formulary. Consider adding meal insulin 1:8g if PO intake started and BG are over 180 after meals. Recommendations made to primary team and RD for TPN insulin. PLAN Insulin glargine 10 units qd Lispro Correction: Moderate 1:20 correction for BG >140 BG Q4 INCREASE Regular insulin for TPN: For Custom TPN: 220g in 2400mL - goal rate 100 mL/hr: Give 50u ofRegular insulin in the TPN bag (based on 1:4.4 I:C ratio). Diet: Sips & Chips Monitoring: BG Q4 Discharge Planning/FCI diabetes care: Medications - Outpatient treatment regimen recommendations pending based on the hospital course. Home: Farxiga 10 mg - DO NOT RESART Lantus 8 units daily - DC on hospital dose Monitoring - continue BG 2-3/day 50 minutes were spent over the course of the day with this patient encounter including time spent in chart review and relevant lab result review, assessment of and counseling with the patient on diabetes and treatment plan, reviewing all glucose and insulin data, and coordination with the consulting service. Isidra Hickey APRN, DNP, -[facility] Inpatient Diabetes Management Team Team pager #[phone] * Gary Mtz PA - 03/30/2024 9:30 AM EDT Surgical Oncology Inpatient Progress Note Patient Name: Charles Nick ; Age: 4 1975; 48 y.o. Room/Bed: IS85/IS85-A Today's Date: 03/30/24 ID: Charles Nick is a 48 y.o. 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 24 Hour Events: - Continues on ceftriaxone/flagyl, started on fluconazole. - NGT clamp trial with 300cc output - NGT returned to [facility] and started on Reglan for pro-motility (? Component of gastroparesis given his DM). - emesis x 1 - Insulin added to TPN - worked with PT, recommending home with home health - AVSS, voiding spontaneously - UOP poorly measured, IR drain with 216 ml output, NGT with ?900 cc output (500cc during day, ?400 overnight per markings on canister) Subjective: Edu reports that he is feeling ok this morning. He would like the NG out - he is feeling hungryand would like to eat. He walked with PT yesterday. He is passing flatus, denies BM yesterday (LBM 2 days ago after suppository). Denies any pain. He reports 1 episode of emesis yesterday when getting up to use the bathroom. Hospital Course: 03/24 HD1: Transferred from OSH for generalized malaise and dizziness with CT demonstrating peripancreatic fluid collection. WBC 9.3 on admission. Admitted to surgical oncology, started on IVF, broad spectrum abx with ceftriaxone/flagyl, with plan for IR drain placement tomorrow. 03/25 HD2: CO2 8 c/f anion gap metabolic acidosis - lactate WNL 1.2, BOHB 6.3 with POC glucose WNL c/f euglycemic DKA. Hospital medicine consulted for management of DKA, started on DKA protocol with insulin gtt. Insulin gtt intermittently paused for hypokalemia, aggressively repleted. NGT placed for nausea and bilious emesis. Underwent IR peripancreatic drain placement - fluid amylase >7500 confirming clinically significant postop pancreatic leak/fistula, gram stain with GPC, GNR, GPR. Hgb 12.7 c/w dilutional anemia. 03/26 HD3: Continue broad spectrum abx. PICC placed. F/u Hospital Medicine recs regarding DKA treatment: anion gap closed and bicarb > 20, transitioned off insulin gtt onto glargine 10u + moderate sliding scale for correction. Aggressive repletion of K and Phos. 03/27 HD4: BASIA drain output 125cc; NGT output 1300cc; Start TPN today through PICC line, continue NGTto suction. 03/28 HD5: Patient had TPN started yesterday evening, which improved his subjective strength. NGT remains elevated at 1450cc. Peripancreatic fluid growing Strep milleri, Prevotella buccae, and rare yeast- continues on Zosyn, awaiting sensitivities. 03/29 HD6: Continues on ceftriaxone/flagyl while waiting fluid sensitivities, started on fluconazole. NGT clamp trial with 300cc output - NGT returned to [facility] and started on Reglan for pro-motility (?Component of gastroparesis given his DM). Insulin added to TPN. 03/30 HD7: Repeat NGT clamp trial on Reglan. Consult ID for abx regimen. Suppository. Floor status. Objective Physical Exam Vitals: Temp: [36.4 ??C (97.5 ??F)-36.9 ??C (98.4 ??F)] Heart Rate: [63-79] Resp: [18] BP: (119-153)/(84-98) SpO2: [93 %-97 %] Heart Rate from SpO2: [63 bpm-78 bpm] Gen: NAD, tired in bed HEENT: sclerae nonicteric. NGT in place with thin bilious output - flushed and sumping well on rounds CV : RRR Pulm: breathing comfortably on RA, no respiratory distress Abd: non-distended, soft, appropriately TT particularly at IR drain site. IR drain with vu purulent output Ext: SCDs in place. Skin: warm, dry Peripancreatic fluid culture 03/25/24: Many mixed Gram Negative and Positive organisms including Streptococcus milleri, anginosis group and Rare Yeast. Many Prevotella buccae Assessment: Charles Nick is a 48 y.o. 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 Charles underwent IR drain placement into the peripancreatic fluid collection on 03/25 with fluid culture growing mixed Gram Negative and Positive organisms including Streptococcus milleri, anginosis group and Prevotella buccae. He continues on broad spectrum antibiotics with ceftriaxone/flagyl, and he was started on fluconazole yesterday. He remains afebrile. Infectious Disease was consulted yesterday - plan is to see him today for recommendations regarding his antibiotic regimen moving forward in light of his PCN allergy. On admission he was noted to have anion gap metabolic acidosis with workup revealing euglycemic DKA. He is currently on 10u glargine, moderate SSI and has insulin in his TPN. Repeat NGT clamp trial today after starting Reglan yesterday. Suppository. OOB/ambulate/PT. Downgrade to floor status. PROBLEM BASED PLANS: #Euglycemic DKA - Off insulin gtt since 03/26 - appreciate [facility] medicine and DM [employer] recs, currently on glargine 10u daily, Moderate SSI, and insulin TPN today #Peripancreatic Fluid - s/p IR drain placement 03/25 - Fluid growing mixed Gram Negative and Positive organisms including Streptococcus milleri, anginosis group and Prevotella buccae - Cont broad spectrum abx with ceftriaxone/flagyl, started on fluconazole 03/29 - ID consult - appreciate recs #Pain - scheduled IV Tylenol GI: - Pantoprazole 40 mg daily - Zofran PRN - Pericolace and Miralax daily - Sips and Chips (Give Meds) Adult TPN - repeat NGT clamp trial today - continue TPN - IV Reglan for gastroparesis ? 2/2 longstanding DM Renal/: - I/Os, monitor UOP. Monitor lytes, supplement prn. - Fluids: TPN Heme: - SQH TID ID: - Ceftriaxone/Flagyl (Started 03/24) - Fluconazole (started 03/29) - ID consult Prophy: - Resp: OOB, IS - GI: Pantoprazole PPI, Antiemetics PRN - DVT: chemoprophylaxis as noted above, SCDs, OOB with assistance Activity: - AAT with assistance. Dispo: Floor status Code status: Attempt Cardiopulmonary Resuscitation - Inpatient Signed: JULIO Burgess Surgical Oncology Service Team Pager #[phone] 03/30/24 9:30 AM Associated attestation - Rudi Hernandez MD - 03/30/2024 2:09 PM EDT Attending Addendum I have seen and examined the patient, I have reviewed the vitals, labs and pertinent imaging. I have discussed the documentation above and agree, with the following comments: NGT clamp trail this AM which 200cc out, pt denied nausea, NGT removed. Will advance diet to clears, continue TPN for now. Rudi Hernandez MD, MS 03/30/2024 2:08 PM [id number] * Jewels Smith, PT - 03/29/2024 1:38 PM EDT Physical Therapy Evaluation Patient profile: Per H&P Charles Nick is a 48 y.o. 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 Patient has been feeling increasing fatigue since discharge from Whipple procedure approximately 10days ago. He takes his BP at home and has noticed that it is low and he feels dizzy and SOB with activity with several episodes of pre/syncope. He does not have abdominal pain but does have a small area of dehiscence of his midline incision with minimal serous drainage. He has tolerated food without nausea and vomiting but had an episode of large volume emesis earlier today. No chest pain or palpitations. No fevers or chills.Patient has not been taking home dose amlodipine or lasix due to hypotension. He does not smoke and drinks alcohol occasionally. No recreational drug use. No new medical problems since his last admission. He initially presented to [facility] and was transferred here for further care. Patient with the following active problems: Past Medical History: Diagnosis Date CKD (chronic kidney disease) stage 3, GFR 30-59 ml/min 01/31/2011 Obesity 01/31/2011 Past Surgical History: Procedure Laterality Date CT GUIDED DRAIN PANCREATIC/PERIPANCREATIC 03/25/2024 CT Guided Drain Pancreatic/Peripancreatic Joe Quintero, DO [facility] RAD CT SCAN IR BIOPSY LIVER PERCUTANEOUS - NON-FOCAL PARENCHYMA 01/07/2023 IR Biopsy Liver Percutaneous 01/07/2023 Juan Wright MD [facility] INTERVENTIONL RAD PRO PART REMV PANC, PROX+REMV DUOD+ANAST N/A 03/01/2024 @WHIPPLE PROCEDURE (WRVU 52.84) performed by Rudi Hernandez MD at [facility] MAIN OR PRO TRANSFER SKIN PEDICLE FLAP N/A 03/01/2024 TRANSFER, INTERMEDIATE, ANY PEDICLE FLAP, ANY LOCATION (WRVU 4.77) performed by Rudi Hernandez MD at [facility] MAIN OR Active Non-Hospital Problems Diagnosis Duodenal adenocarcinoma CKD (chronic kidney disease) stage 3, GFR 30-59 ml/min Obesity Social History: Home set-up: Lives in home with girlfriend Jenelle Stairs: 1STE with rail, ~13 stairs to second floor Baseline mobility: IND baseline with mobility, ambulation, self-care, ADLs, 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 However between last admit for whipple procedure and this admit, acknowledges significant increase in fatigue and increased need of support from partner. Equipment at home: walking stick Support at home: Jenelle Fall history: reports none Precautions/Special Considerations: full code, up with assistance, sips and chips Lines: PICC, N/o tube, BASIA drain, PIV Mobility and Positioning Recommendations: Pt. to utilize FWW and SBA for ambulation and transfers with nursing. Please encourage up to chair for meal times as able. Pt encouraged to ambulate frequently with staff, getting into the bathroom for toileting and walking out in the [place] >/= 3 times daily as able. Subjective: ???I feel a lot better than I did the other day, and when I was at home Objective: Pt seen for evaluation today. Pain: c/o pain/ tension in R erector spinae region post-activity (un-rated) Vital Signs: WNL at rest and with activity on RA Mental Status: A&O Vision: not formally assessed Skin: intact that was observed Musculoskeletal: ROM: WNL with exception trunk (limited dt pain) Strength:grossly 4/5 Sensation: light touch intact Bed Mobility: HOB slightly elevated , with bed rails Supine to Sit: mod-IND, increased time to perform Sit to Supine: n/a; ended session in bedside recliner chair Transfers: Sit to Stand: SBA with FWW Stand to Sit: SBA with FWW Bed to Chair: SBA with FWW Gait: Distance: 150 ft Device used: FWW Level of assist: CGA progressing to SBA with FWW Gait mechanics: Presents with decreased dmitry, decreased step length , limited foot clearance during swing phase, and lateral trunk lean towards stance limb Stairs: Number of steps: ascended and descended platform step x10 Device used: FWW Level of assist: CGA Balance: Sitting Static: good Sitting Dynamic: good Standing Static: fair with FWW Standing Dynamic / Gait: fair with FWW Education: patient has been educated on Transfers, Assistive device/technique, Stairs, Gait , Activity pacing/Energy conservation, Role of therapy, and Discharge planning and verbalizes understanding. Patient status, treatment, and mobility recommendations discussed with nursing. Assessment: Charles Nick was seen today for physical therapy evaluation. Patient tolerated therapy well. Patient presents with pain, decreased balance, decreased endurance, and decreased cardiovascular fitness, limiting functional mobility, ambulation, activity tolerance, safety, and ability to manage own needs. This is below Patient's baseline, and as a result, Patient will benefit from continued skilled therapy services while in the hospital. Discharge to home with home health will further assist Patient in maximizing functional abilities. Discharge Recommendations: Based on the current findings, Anticipated Discharge Disposition (PT): home with home health when medically ready for hospital discharge. Consult Recommendations: No other consults recommended at this time. Equipment needs: Anticipated Equipment Needs at Discharge (PT): to be determined Goals: To be achieved by 03/31/24: (ongoing unless otherwise noted) Pt. to demonstrate knowledge of safety limitations and precautions and will appropriately request assistance for functional activities and to mobilize. Pt. to perform bed mobility independently. met Pt. to perform STS transfers with modified independence using LRAD . Pt. to ambulate >150 feet with modified independence using LRAD . Pt. to ambulate up/down >13 step/stairs using one rail with supervision. Plan: Therapy Frequency (PT): 2-3 times/wk for therapy including bed mobility training, gait training, patient/family education, stair training, and transfer training. Patient/family understand and agree with plan as stated above. 2017 PT Evaluation Code Rationale: Diagnosis & Pertinent Co-Morbidities, personal factors, and present illness affecting Plan of Care: (see above); Additional personal factors or co- morbidities that impact plan: Total # of Factors: 0 1-2 3+ x Examination of body system impairments, functional limitations and behaviors, and/or participation restrictions. Addressing 1-2 elements Addressing 3 + elements x Addressing 4 + elements Clinical presentation: See assessment above. Stable/Uncomplicated Evolving/Fluctuating Symptoms Unstable/Unpredictable x Clinical decision making of moderate complexity based on pt's functional performance as outlined inthis evaluation. Time IN / OUT: 6863-1674, 7036-2860 Total Minutes, Physical Therapy: 26 Jewels Smith DPT Pager: [phone] Physical Therapy Inpatient Rehabilitation Department * Isidra Hickey APRN - 03/29/2024 11:10 AM EDT Glucose Management Team Inpatient Progress Note HPI Charles Nick is a 48 y.o. 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 Original consult completed: 03/25/2024 Kristen Meza APRN Patient Interview & Updates TPN started, requiring Q4 lispro currently with BG continued above target. TPN increasing to 160g dextrose today per RD Plan to do NGT clamp trial today, and hopefull advance diet over coming days Up walking in the halls at the time of my visit, and wants to walk more! Objective Temp: [36.6 ??C (97.9 ??F)-37 ??C (98.6 ??F)] Heart Rate: [70-87] Resp: [15-19] BP: (129-146)/(86-96) SpO2: [90 %-96 %] Heart Rate from SpO2: [69 bpm-85 bpm] Wt Readings from Last 3 Encounters: 03/24/24 116.5 kg (256 lb 12.8 oz) 03/25/24 116.1 kg (256 lb) 03/17/24 119.7 kg (263 lb 14.4 oz) Current Regimen from Previous Note Insulin glargine 10 units qd Lispro Correction: Moderate 1:20 correction for BG >140 BG Q4 Lispro for TPN: 3 units Q4 hours for current TPN (120g dextrose @ 100mL/hr) Diet: Sips & Chips Monitoring: BG Q4 Relevant meds: TPN; TDD: 03/28 36u Recent Glucose Levels Recent Labs 03/29/24 0722 03/29/24 0411 03/29/24 0005 03/28/24 2051 03/28/24 1610 03/28/24 1200 03/28/24 0741 03/28/24 0414 03/28/24 0036 03/27/24 2024 03/27/24 1553 03/27/24 1204 POCGLU 187 195 187 171 164 209* 193 194 196 162 144 155 ASSESSMENT Charles Nick is a 48 y.o. years old male with PMH significant for DM2 (Last A1C of 8.9% 02/2024) who was admitted on 03/24/2024 for new peripancreatic abscess on CT, and euglycemic DKA likely due to SGLT-2i (admission BHOB 6.3; AG 21; BG 143). Diabetes suboptimally controlled and complicated by TPN, euglycemia DAK. Currently variable blood glucose levels while hospitalized requiring adjustment ofinsulin regimen and DM medications. Charles has been receiving TPN with Q4 lispro for coverage at 3u Q4 since yesterday. BG continue to be above target, requiring 2-3u Q4 hours, not bring BG to target. Today dextrose is increasing from 120 to 160g dextrose. Weight-based estimate for insulin needs 0.6u/kg/day = 70u TDD (ISF 21, ICR 7).Plan to add TPN insulin to the custom TPN today using conservative 1:5g ICR, and likely increase tomorrow. Consider adding meal insulin 1:8g if PO intake started. Recommendations made to primary teamand RD for TPN insulin. PLAN Insulin glargine 10 units qd Lispro Correction: Moderate 1:20 correction for BG >140 BG Q4 INCREASE Lispro for TPN: until 1600 For 120 grams of dextrose per 2400mL - Goal rate 100 mL/hr Give 5u Q4hrs. HOLD if BG less than 80 START Regular insulin for TPN: For Custom TPN: 160g in 2400mL - goal rate 100 mL/hr: Give 32u of Regular insulin in the TPN bag (based on 1:5 I:C ratio). 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 Home: Metformin 1000mg BID - restart on discharge Farxiga 10 mg - DO NOT RESART Lantus 8 units daily - DC on hospital dose Monitoring - continue BG 2-3/day 50 minutes were spent over the course of the day with this patient encounter including time spent in chart review and relevant lab result review, assessment of and counseling with the patient on diabetes and treatment plan, reviewing all glucose and insulin data, and coordination with the consulting service. Isidra Hickey APRN, DNP, -[facility] Inpatient Diabetes Management Team Team pager #[phone] * Gary Mtz PA - 03/29/2024 8:23 AM EDT Surgical Oncology Inpatient Progress Note Patient Name: Charles FLANAGAN; Age: 4 1975; 48 y.o. [facility] Today's Date: 03/29/24 ID: Charles Nick is a 48 y.o. 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 24 Hour Events: - Peripancreatic fluid growing Strep milleri, Prevotella buccae, and rare yeast- continues on ceftriaxone/flagyl, awaiting sensitivities. - Continues on TPN - NGT with 1700cc output - BASIA drain with 193cc output - AVSS, IR drain with 193 cc purulent output, NGT with 1700 bilious output, BM x 1 Subjective: Edu reports that he is feeling better this morning. He had some nausea overnight that is no longer present. He started to feel hungry yesterday. Having some pain at the drain site. Hospital Course: 03/24 HD1: Transferred from OSH for generalized malaise and dizziness with CT demonstrating peripancreatic fluid collection. WBC 9.3 on admission. Admitted to surgical oncology, started on IVF, broad spectrum abx with ceftriaxone/flagyl, with plan for IR drain placement tomorrow. 03/25 HD2: CO2 8 c/f anion gap metabolic acidosis - lactate WNL 1.2, BOHB 6.3 with POC glucose WNL c/f euglycemic DKA. Hospital medicine consulted for management of DKA, started on DKA protocol with insulin gtt. Insulin gtt intermittently paused for hypokalemia, aggressively repleted. NGT placed for nausea and bilious emesis. Underwent IR peripancreatic drain placement - fluid amylase >7500 confirming clinically significant postop pancreatic leak/fistula, gram stain with GPC, GNR, GPR. Hgb 12.7 c/w dilutional anemia. 03/26 HD3: Continue broad spectrum abx. PICC placed. F/u Hospital Medicine recs regarding DKA treatment: anion gap closed and bicarb > 20, transitioned off insulin gtt onto glargine 10u + moderate sliding scale for correction. Aggressive repletion of K and Phos. 03/27 HD4: BASIA drain output 125cc; NGT output 1300cc; Start TPN today through PICC line, continue NGTto suction. 03/28 HD5: Patient had TPN started yesterday evening, which improved his subjective strength. NGT remains elevated at 1450cc. Peripancreatic fluid growing Strep milleri, Prevotella buccae, and rare yeast- continues on Zosyn, awaiting sensitivities. 03/29 HD6: Continues on ceftriaxone/flagyl while waiting fluid sensitivities. NGT clamp trial. Suppository. Insulin added to TPN. Objective Physical Exam Vitals: Temp: [36.6 ??C (97.9 ??F)-37 ??C (98.6 ??F)] Heart Rate: [70-87] Resp: [15-19] BP: (129-146)/(86-96) SpO2: [90 %-96 %] Heart Rate from SpO2: [69 bpm-85 bpm] Gen: NAD, tired in bed HEENT: sclerae nonicteric. NGT in place with thin bilious output - flushed and sumping well on rounds CV : RRR Pulm: breathing comfortably on RA, no respiratory distress Abd: non-distended, soft, appropriately TT particularly at IR drain site. IR drain with vu purulent output Ext: SCDs in place. Skin: warm, dry Peripancreatic fluid culture 03/25/24: Many mixed Gram Negative and Positive organisms including Streptococcus milleri, anginosis group and Rare Yeast. Many Prevotella buccae Assessment: Charles Nick is a 48 y.o. 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 Charles underwent IR drain placement into the peripancreatic fluid collection on 03/25 with fluid culture growing mixed Gram Negative and Positive organisms including Streptococcus milleri, anginosis group and Prevotella buccae. He continues on broad spectrum antibiotics with ceftriaxone/flagyl whilewe await final sensitivities - will call micro lab today for update. He remains afebrile with a normal white count this morning. On admission he was noted to have anion gap metabolic acidosis with workup revealing euglycemic DKA. He was started on DKA protocol with insulin gtt, which unfortunately had to be paused repeatedly for hypokalemia and hypophosphatemia. Insulin gtt was discontinued on 03/26 and he was transitioned tobasal/bolus insulin with 10u glargine, moderate sliding scale, and lispro for TPN coverage. Plan tocontinue custom TPN today with the addition of R insulin into the TPN. NGT clamp trial today. Suppository. OOB/ambulate/PT. 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, currently on glargine 10u daily, Moderate SSI, and 3u lispro q4h to cover TPN -- > adding insulin to TPN today - Repleting lytes - K #Peripancreatic Fluid - s/p IR drain placement 03/25 - Fluid growing mixed Gram Negative and Positive organisms including Streptococcus milleri, anginosis group and Prevotella buccae - awaiting sensitivities - Cont broad spectrum abx with ceftriaxone/flagyl #Pain - scheduled IV Tylenol GI: - Pantoprazole 40 mg daily - Zofran PRN - Pericolace and Miralax daily - Sips and Chips (Give Meds) Adult TPN - NGT clamp trial today - continue TPN Renal/: - I/Os, monitor UOP. Monitor lytes, supplement prn. - Fluids: TPN Heme: - SQH TID ID: - Ceftriaxone/Flagyl (Started 03/24) Prophy: - Resp: OOB, IS - GI: Pantoprazole PPI, Antiemetics PRN - DVT: chemoprophylaxis as noted above, SCDs, OOB with assistance Activity: - AAT with assistance. Dispo: ISCU Code status: Attempt Cardiopulmonary Resuscitation - Inpatient Signed: JULIO Burgess Surgical Oncology Service Team Pager #[phone] 03/29/24 8:23 AM Associated attestation - Rudi Hernandez MD - 03/29/2024 2:41 PM EDT Attending Addendum I have seen and examined the patient, I have reviewed the vitals, labs and pertinent imaging. I have discussed the documentation above and agree, with the following comments: Charles Nick is HD stable, we attempted a clamp trial this AM, there as 300cc out when the tubingwas reconnected to suction, given this we have left the NGT in place. We will start Reglan for pro-motility, as there maybe a component of gastroparesis given Charles's long standing DM. Otherwise, weare waiting on sensitivities on the microorganisms to narrow Abx. Rudi Hernandez MD, MS 03/29/2024 2:39 PM [id number] * Luke Hyde MD - 03/28/2024 3:39 PM EDT Surgical Oncology Inpatient Progress Note Patient Name: Charles Nick DOB; Age: 4 1975; 48 y.o. Room/Bed: IS/IS85A Today's Date: 03/28/24 ID: Charles Nick is a 48 y.o. 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 24 Hour Events: - NAEON - TPN started and patient feeling stronger than day prior - NGT with 1450cc output - BASIA drain with 140cc output Subjective: Edu had a better night than the night prior, TPN started which feels to him like he is regaining some strength. No episodes of emesis overnight. Hospital Course: 03/24 HD1: Transferred from OSH for generalized malaise and dizziness with CT demonstrating peripancreatic fluid collection. WBC 9.3 on admission. Admitted to surgical oncology, started on IVF, broad spectrum abx with ceftriaxone/flagyl, with plan for IR drain placement tomorrow. 03/25 HD2: CO2 8 c/f anion gap metabolic acidosis - lactate WNL 1.2, BOHB 6.3 with POC glucose WNL c/f euglycemic DKA. Hospital medicine consulted for management of DKA, started on DKA protocol with insulin gtt. Insulin gtt intermittently paused for hypokalemia, aggressively repleted. NGT placed for nausea and bilious emesis. Underwent IR peripancreatic drain placement - fluid amylase >7500 confirming clinically significant postop pancreatic leak/fistula, gram stain with GPC, GNR, GPR. Hgb 12.7 c/w dilutional anemia. 03/26 HD3: Continue broad spectrum abx. PICC/TPN. F/u Hospital Medicine recs regarding DKA treatment. Aggressive repletion of K and Phos. 03/27 HD4: BASIA drain output 125cc; NGT output 1300cc; Start TPN today through PICC line, continue NGTto suction. 03/28 HD5: Patient had TPN started yesterday evening, which improved his subjective strength. NGT remains elevated at 1450cc. Objective Physical Exam Vitals: Temp: [36.5 ??C (97.7 ??F)-37 ??C (98.6 ??F)] Heart Rate: [73-87] Resp: -- BP: (136-145)/(85-95) SpO2: [93 %-96 %] Heart Rate from SpO2: [68 bpm-85 bpm] Gen: NAD, tired in bed, HEENT: sclerae nonicteric. NGT in place with thin bilious output - flushed and sumping well on rounds CV : RRR Pulm: breathing comfortably on RA, no respiratory distress Abd: non-distended, soft, appropriately TTP. IR drain with dark SS output. Ext: SCDs in place. Skin: warm, dry Peripancreatic fluid culture 03/25/24: Many Neutrophils seen Many Gram Positive Cocci seen Few Gram Negative Rods seen Few Gram Positive Rods seen Assessment: Charles Nick is a 48 y.o. 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 Charles underwent IR drain placement into the peripancreatic fluid collection yesterday 03/25 with fluid culture growing mixed gram negative and positive organisms. He continues on broad spectrum antibiotics with ceftriaxone/flagyl. He remains afebrile with a normal white count this morning. On admission he was noted to have anion gap metabolic acidosis with workup revealing euglycemic DKA. He was started on DKA protocol with insulin gtt, which unfortunately has had to be paused repeatedly for hypokalemia and hypophosphatemia. Appreciate hospital medicine recs for managing his euglycemic DKA. Maintain NGT to LCWS. PICC/TPN today. PROBLEM BASED PLANS: #Euglycemic DKA - DKA protocol - appreciate Hospital Medicine and DM [employer] SUPERVISOR recs - Repleting lytes - K and Phos #Peripancreatic Fluid - s/p IR drain placement 03/25 - Fluid growing mixed gram negatives and positives - f/u final culture data - Cont broad spectrum abx with ceftriaxone/flagyl #Pain - scheduled IV Tylenol GI: - Pantoprazole 40 mg daily - Zofran PRN - Senna and Miralax daily - Sips and Chips (Give Meds) Adult TPN - NGT to LCWS - PICC/TPN today Renal/: - I/Os, monitor UOP. Monitor lytes, supplement prn. - Fluids: LR Heme: - SQH TID ID: - Cefepime/Flagyl (Started 03/24) Prophy: - Resp: OOB, IS - GI: Pantoprazole PPI, Antiemetics PRN - DVT: chemoprophylaxis as noted above, SCDs, OOB with assistance Activity: - AAT with assistance. Dispo: ISCU Code status: Attempt Cardiopulmonary Resuscitation - Inpatient Signed: Luke Hyde MD Surgical Oncology Service Team Pager #[phone] 03/28/24 3:39 PM * Kristen Meza, EDGE STAINER - 03/28/2024 8:40 AM EDT Follow Up Diabetes Consult Patient Interview Blood glucose values and insulin use reviewed. TPN initiated without insulin in the bag. Reached out to team to suggest the addition of Q 4 hour lispro at 3 units based on required corrections, they are in agreement. Adding 3 units Q 4 hours during run of TPN that can be added back to bag tomorrow with additional required correction doses. Charles is up and ambulating with his walker, much improved since yesterday per nursing. He tells me he could not even move yesterday due to exhaustion.. Objective Temp: [36.5 ??C (97.7 ??F)-37 ??C (98.6 ??F)] Heart Rate: [73-82] Resp: -- BP: (137-145)/(85-98) SpO2: [93 %-96 %] Heart Rate from SpO2: [68 bpm-82 bpm] Current Regimen from previous note Lantus:10 units daily Lispro for correction q 4 hours based on a correction factor of 20 Diet sips and chips, anticipating TPN Monitoring:Q4 Recent Glucose Levels Recent Labs 03/28/24 0741 03/28/24 0414 03/28/24 0036 03/27/24202303/27/24 1553 03/27/24 1204 03/27/24 0800 03/27/24 0453 03/27/24 0010 03/26/24 2002 03/26/24 1705 03/26/24 1304 POCGLU 193 194 196 162 144 155 154 156 136 128 144 126 ASSESSMENT Charles Nick is a 48 y.o. 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 Labson admission show anion gap of 21 with BG of 143, BOHB of 6.3 consistent with euglycemic DKA. Patient does take SGLT-2 medication. Last A1C was 8.9% in February, suggesting an average glucose of 209 mg/dL for the 6-8 weeks prior to this lab. Currently has variability of blood glucose levels while hospitalized requiring adjustment of insulin regimen and DM medications. TPN run initiated without insulin in bag. Suggest addition of Q 4 hour lispro at this time at 3 units q 4 hours. This can be added back to TPN bag tomorrow with additional required correction doses. Reached out to team to discuss and adjustments made. PLAN Lantus:10 units daily Lispro for TPN coverage: ADDED 3 units Q 4 hours (please discuss adding R insulin to TPN with RD Friday am 03/29/24) Lispro for correction q 4 hours based on a correction factor of 20 Diet sips and chips,TPN Monitoring:Q4 Discharge Considerations: Must d/c SGLT-2 Kristen Meza APRN [facility] Endocrinology Diabetes Management Pager [phone] Weekends please page [phone] 35 minute visit was spent with the patient in counseling on diabetes and treatment plan, reviewing all glucose and insulin data as well as relevant laboratory results with the patient, and coordination of care on the inpatient unit including nursing and primary team. * Crystal Rubio MD - 03/27/2024 6:19 PM EDT Internal Medicine Inpatient Consult Progress Note Charles Nick is a 48 y.o. 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 24 Hour Events: Closed gap , bicarb 20 x 2 Transitioned to sq insulin with home glargine 10 U and moderate dose SSI Remained NPO with NG tube on suction. Had PICC placed with initiation of PPN Subjective: Frustrated by the trajectory of his disease and unable to move or have PO intake, but understands given the acuity of his situation. Objective: Vitals: Last value 24hr range T 37 ??C (98.6 ??F) Temp: [36.5 ??C (97.7 ??F)-37 ??C (98.6 ??F)] HR 75 Heart Rate: [74-104] BP (!) 145/95 BP: (121-147)/(82-98) RR (!) 0 Resp: [0-18] SpO2 93 % SpO2: [93 %-97 %] Physical Exam: Physical Exam Constitutional: General: He is awake. Appearance: He is ill-appearing. Comments: NG tube noted with bilious drainage HENT: Mouth/Throat: Mouth: Mucous membranes are dry. Eyes: Pupils: Pupils are equal, round, and reactive to light. Cardiovascular: Rate and Rhythm: Normal rate and regular rhythm. Pulses: Radial pulses are 2+ on the right side and 2+ on the left side. Heart sounds: S1 normal and S2 normal. Pulmonary: Effort: No tachypnea or accessory muscle usage. Breath sounds: No wheezing or rhonchi. Abdominal: General: Abdomen is protuberant. A surgical scar is present. Bowel sounds are normal. Palpations: Abdomen is soft. Tenderness: There is generalized abdominal tenderness. Comments: IR drain with serosanguinous fluid noted in bulb Musculoskeletal: Right lower leg: No edema. Left lower leg: No edema. PICC line noted Neurological: Mental Status: He is oriented to person, place, and time. Psychiatric: Behavior: Behavior is cooperative, but anxious Assessment: Patient remains out of DKA, transitioned to PPN. Electrolyte abnormalities have improved. Medicine will sign off. Please reach out if any further questions or concerns Patient was discussed with Dr. Quirino Nelson. Crystal Rubio MD Internal Medicine, PGY3 Pager: [phone] * Luke Hyde MD - 03/27/2024 8:58 AM EDT Surgical Oncology Inpatient Progress Note Patient Name: Charles Nick ; Age: 4 1975; 48 y.o. [facility] Today's Date: 03/27/24 ID: Charles Nick is a 48 y.o. 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 24 Hour Events: - NAEON - Patient continues to have random episodes of emesis - Electrolytes have been balanced and NGT to remain to suction - NGT output 1300cc - Subjective: Charles had a rough night. He had an episode of emesis earlier this morning despite the NGT remaining in place. Dizziness has resolved. Hospital Course: 03/24 HD1: Transferred from OSH for generalized malaise and dizziness with CT demonstrating peripancreatic fluid collection. WBC 9.3 on admission. Admitted to surgical oncology, started on IVF, broad spectrum abx with ceftriaxone/flagyl, with plan for IR drain placement tomorrow. 03/25 HD2: CO2 8 c/f anion gap metabolic acidosis - lactate WNL 1.2, BOHB 6.3 with POC glucose WNL c/f euglycemic DKA. Hospital medicine consulted for management of DKA, started on DKA protocol with insulin gtt. Insulin gtt intermittently paused for hypokalemia, aggressively repleted. NGT placed for nausea and bilious emesis. Underwent IR peripancreatic drain placement - fluid amylase >7500 confirming clinically significant postop pancreatic leak/fistula, gram stain with GPC, GNR, GPR. Hgb 12.7 c/w dilutional anemia. 03/26 HD3: Continue broad spectrum abx. PICC/TPN. F/u Hospital Medicine recs regarding DKA treatment. Aggressive repletion of K and Phos. 03/27 HD4: BASIA drain output 125cc; NGT output 1300cc; Start TPN today through PICC line, continue NGTto suction. Objective Physical Exam Vitals: Temp: [36.6 ??C (97.9 ??F)-36.9 ??C (98.4 ??F)] Heart Rate: [80-104] Resp: [0-18] BP: (121-147)/(77-95) SpO2: [95 %-98 %] Heart Rate from SpO2: [80 bpm-103 bpm] Gen: NAD, tired in bed, HEENT: sclerae nonicteric. NGT in place with thin bilious output - flushed and sumping well on rounds CV : RRR Pulm: breathing comfortably on RA, no respiratory distress Abd: non-distended, soft, appropriately TTP. IR drain with dark SS output. Ext: SCDs in place. Skin: warm, dry Peripancreatic fluid culture 03/25/24: Many Neutrophils seen Many Gram Positive Cocci seen Few Gram Negative Rods seen Few Gram Positive Rods seen Assessment: Charles Nick is a 48 y.o. 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 Charles underwent IR drain placement into the peripancreatic fluid collection yesterday 03/25 with fluid culture growing mixed gram negative and positive organisms. He continues on broad spectrum antibiotics with ceftriaxone/flagyl. He remains afebrile with a normal white count this morning. On admission he was noted to have anion gap metabolic acidosis with workup revealing euglycemic DKA. He was started on DKA protocol with insulin gtt, which unfortunately has had to be paused repeatedly for hypokalemia and hypophosphatemia. Appreciate hospital medicine recs for managing his euglycemic DKA. Maintain NGT to LCWS. PICC/TPN today. PROBLEM BASED PLANS: #Euglycemic DKA - DKA protocol - appreciate Hospital Medicine and DM WASTEWATER T[employer]ATMENT SUPERVISOR recs - Repleting lytes - K and Phos #Peripancreatic Fluid - s/p IR drain placement 03/25 - Fluid growing mixed gram negatives and positives - f/u final culture data - Cont broad spectrum abx with ceftriaxone/flagyl #Pain - scheduled IV Tylenol GI: - Pantoprazole 40 mg daily - Zofran PRN - Senna and Miralax daily - Sips and Chips (Give Meds) Adult TPN - NGT to LCWS - PICC/TPN today Renal/: - I/Os, monitor UOP. Monitor lytes, supplement prn. - Fluids: LR Heme: - SQH TID ID: - Cefepime/Flagyl (Started 03/24) Prophy: - Resp: OOB, IS - GI: Pantoprazole PPI, Antiemetics PRN - DVT: chemoprophylaxis as noted above, SCDs, OOB with assistance Activity: - AAT with assistance. Dispo: ISCU Code status: Attempt Cardiopulmonary Resuscitation - Inpatient Signed: Luke Hyde MD Surgical Oncology Service Team Pager #[phone] 03/27/24 8:58 AM Associated attestation - Rudi Hernandez MD - 03/28/2024 10:08 AM EDT Attending Addendum I have seen and examined the patient, I have reviewed the vitals, labs and pertinent imaging. I have discussed the documentation above and agree, with the following comments: Charles Nick is HDS, labs reassuring, basia drain with purulent output, continue Abx. TPN on for nutritional support, NGT in. * Kristen Meza, EDGE STAINER - 03/26/2024 3:11 PM EDT Images from the original note were not included. Follow Up Diabetes Consult Patient Interview Blood glucose values and insulin use reviewed. Patient transitioned off DKA drip with glargine [address] consulted to evaluate for TPN with severe protein calorie malnutrition and order in place for PICC line placement. Charles is exhausted, nods his head to questions. Objective Temp: [36.4 ??C (97.5 ??F)-36.9 ??C (98.4 ??F)] Heart Rate: [83-98] Resp: [13-18] BP: (119-140)/(72-84) SpO2: [96 %-98 %] Heart Rate from SpO2: [83 bpm-99 bpm] Current Regimen from previous note 1. Continue insulin drip per protocol until anion gap closed for two checks. Once anion gap is closed transition to titratable drip for a period of dose finding or can consider weight based basal insulin dosing for transition off drip. Insulin drip must run for a minimum or 2 hours after long acting insulin has been administered in addition to glucose being < 200 and drip running at less than 2 units an hour 2. If he is hungry, please add carb ratio 1:10 to be administered in addition to the drip 3. Once drip is discontinued please add moderate correction factor 4. Monitoring: Q1 Recent Glucose Levels Recent Labs 03/26/24 1304 03/26/24 1136 03/26/24 1034 03/26/24 0937 03/26/24 0757 03/26/24 0641 03/26/24 0355 03/26/24 0233 03/26/24 0005 03/25/24201003/25/24 1856 03/25/24 1807 POCGLU 126 155 180 240* 197 226* 206* 220* 321* 198 212* 175 ASSESSMENT Charles Nick is a 48 y.o. 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 [facility]son admission show anion gap of 21 with BG of 143, BOHB of 6.3 consistent with euglycemic DKA. Patient does take SGLT-2 medication. Last A1C was 8.9% in February, suggesting an average glucose of 209 mg/dL for the 6-8 weeks prior to this lab. Currently has variability of blood glucose levels while hospitalized requiring adjustment of insulin regimen and DM medications. Transitioned off DKA drip with glargine 10 units and moderate correction q 4 hours. Reviewed transition with RN, need for drip to run for 2 hours following administration of long acting insulin. RD consulted to evaluate for TPN with severe protein calorie malnutrition. Order in place for PICC placement. PLAN Lantus:10 units daily Lispro for correction q 4 hours based on a correction factor of 20 Diet sips and chips, anticipating TPN Monitoring:Q4 Discharge Considerations: Must d/c SGLT-2 Kristen Meza APRN [facility] Endocrinology Diabetes Management Pager [phone] Weekends please page [phone] minutes were spent over the course of the day with this patient encounter including time spent in chart review and relevant lab result review, assessment of and counseling with the patient on diabetes and treatment plan, reviewing all glucose and insulin data, and coordination with the consulting service. * Crystal Rubio MD - 03/26/2024 10:15 AM EDT Internal Medicine Inpatient Consult Progress Note Charles Nick is a 48 y.o. 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 24 Hour Events: Admitted from outside hospital due to weakness and presyncope, in setting of peripancreatic abscessand new patient DKA. Started on insulin drip which was held multiple times during the night due to hypokalemia Received as needed sliding scale insulin Had NG tube placed because of episodes of bilious emesis, which continued throughout the night Underwent IR guided drainage of intra-abdominal fluid collection which grew gram-negative and gram-positive rods Subjective: Continues to feel significantly weak this morning. Reported episodes of vomiting, however endorses feeling slightly better than yesterday. Objective: HDS, RR 17 on room air, afebrile, HR 85 Phosphorus 1.3, potassium 3.3, mag 0.26 AG 9, 11 (close x-ray), bicarb 19/20 POCT glucose 200s Insulin drip on hold On D10 and LR 125 mill per hour Vitals: Last value 24hr range T 36.4 ??C (97.5 ??F) Temp: [36.4 ??C (97.5 ??F)-36.9 ??C (98.4 ??F)] HR 85 Heart Rate: [83-105] BP 126/77 BP: (117-146)/(67-83) RR 17 Resp: [11-18] SpO2 96 % SpO2: [96 %-99 %] Physical Exam: Physical Exam Constitutional: General: He is awake. Appearance: He is ill-appearing. Comments: NG tube noted HENT: Mouth/Throat: Mouth: Mucous membranes are dry. Eyes: Pupils: Pupils are equal, round, and reactive to light. Cardiovascular: Rate and Rhythm: Normal rate and regular rhythm. Pulses: Radial pulses are 2+ on the right side and 2+ on the left side. Heart sounds: S1 normal and S2 normal. Pulmonary: Effort: No tachypnea or accessory muscle usage. Breath sounds: No wheezing or rhonchi. Abdominal: General: Abdomen is protuberant. A surgical scar is present. Bowel sounds are normal. Palpations: Abdomen is soft. Tenderness: There is generalized abdominal tenderness. Comments: IR drain with serosanguinous fluid noted in bulb Musculoskeletal: Right lower leg: No edema. Left lower leg: No edema. Neurological: Mental Status: He is oriented to person, place, and time. Psychiatric: Behavior: Behavior is cooperative. Labs: Last 3 Lytes Recent Labs 03/26/24 0519 03/26/24 0229 03/25/24 2227 NA 138 140 140 K 3.3* 3.2* 3.4* CL 109* 110* 109* CO2 20* 19* 18* BUN 5* 5* 6* CREATININE 0.70* 0.71* 0.73* Last 3 LFTs Recent Labs 03/08/24 0444 03/07/24 0453 03/06/24 0409 AST 11 11 12 ALT 22 25 36 ALKPHOS 94 88 86 BILITOT 0.4 0.4 0.4 Last CRP, SEDRATENo results for input(s): CRP, SEDRATE in the last 7068 hours. Last CBC Lab Results Component Value Date WBC 4.6 03/26/2024 RBC 5.61 (H) 03/26/2024 HGB 13.6 (L) 03/26/2024 HCT 40.7 03/26/2024 MCV 72.5 (L) 03/26/2024 MCH 24.2 (L) 03/26/2024 MCHC 33.4 03/26/2024 PLATELET 220 03/26/2024 RDWCV 16.1 (H) 03/26/2024 Assessment: Charles Nick is a 48 y.o. 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 Patient was intermittently on the insulin drip, being held due to his hyperkalemia. He was started on IV repletion, however 10 mEq/h every hour. He also has a significant decline in his phosphate. The patient's anion gap has been normal asked to, bicarb at 20. He does appear to be out of DKA. Will t ransition him to subcutaneous insulin, can resume his home long-acting of 10 units. Has not been jovanna stable drip rate. Of note, possibility that patient might be getting a PICC line and started on TPN. However will help with managing the patient's electrolytes as well Recommendations: Euglycemic DKA > Likely because SGLT2 inhibitor in setting of peripancreatic abscess > Given anion gap closed X2, bicarb greater than 20 X2, recommend transitioning to subcutaneous insulin. > Resume home dose glargine at 10 units subcu now. > Continue on insulin drip until 2 hours after administration of long-acting subcu insulin. Given the fact that the patient is hypokalemic, likely he is not on continuous insulin drip. > If considering TPN, please reach out to diabetes management to adjust his insulin > Please replete electrolytes per protocol Patient was seen and discussed with Dr. John Paul Logan. X Consult service will continue to follow patient. Crystal Rubio MD Internal Medicine, PGY3 Pager: [phone] Associated attestation - John Paul Logan MD - 03/26/2024 7:12 PM EDT Please see Dr. Rubio's note for details of the 24hr events, current issues and clinical course. I have discussed, reviewed and agree with the documented history, physical findings, assessment and plan of care. I have examined the patient myself and reviewed all labs and studies personally. John Paul Logan MD 03/26/2024 7:10 PM * Gary Mtz PA - 03/26/2024 7:55 AM EDT Surgical Oncology Inpatient Progress Note Patient Name: Charles FLANAGAN; Age: 4 1975; 48 y.o. [facility] Today's Date: 03/26/24 ID: Charles Nick is a 48 y.o. 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 24 Hour Events: - CO2 8 c/f anion gap metabolic acidosis - lactate WNL 1.2, BOHB 6.3 with POC glucose WNL c/f euglycemic DKA. Hospital medicine consulted for management of DKA, started on insulin gtt. Insulin gtt intermittently paused for hypokalemia, aggressively repleted. - NGT placed for nausea and bilious emesis. - Underwent IR peripancreatic drain placement - fluid amylase >7500 confirming clinically significant postop pancreatic leak/fistula, gram stain with GPC, GNR, GPR. - Afebrile. Tachycardic to low 100s throughout the day yesterday - resolved today, normotensive, satting well on RA (weaned from 2L NC). AUOP. NGT with 575ml out + 1x emesis. IR drain with 90cc out Subjective: Charles had a rough night. He had an episode of emesis earlier this morning despite the NGT remaining in place. Dizziness has resolved. Hospital Course: 03/24 HD1: Transferred from OSH for generalized malaise and dizziness with CT demonstrating peripancreatic fluid collection. WBC 9.3 on admission. Admitted to surgical oncology, started on IVF, broad spectrum abx with ceftriaxone/flagyl, with plan for IR drain placement tomorrow. 03/25 HD2: CO2 8 c/f anion gap metabolic acidosis - lactate WNL 1.2, BOHB 6.3 with POC glucose WNL c/f euglycemic DKA. Hospital medicine consulted for management of DKA, started on DKA protocol with insulin gtt. Insulin gtt intermittently paused for hypokalemia, aggressively repleted. NGT placed for nausea and bilious emesis. Underwent IR peripancreatic drain placement - fluid amylase >7500 confirming clinically significant postop pancreatic leak/fistula, gram stain with GPC, GNR, GPR. Hgb 12.7 c/w dilutional anemia. 03/26 HD3: Continue broad spectrum abx. PICC/TPN. F/u Hospital Medicine recs regarding DKA treatment. Aggressive repletion of K and Phos. Objective Physical Exam Vitals: Temp: [36.4 ??C (97.5 ??F)-37.1 ??C (98.7 ??F)] Heart Rate: [83-106] Resp: [11-20] BP: (117-146)/(67-83) SpO2: [96 %-99 %] Heart Rate from SpO2: [83 bpm-105 bpm] Gen: NAD, tired in bed, HEENT: sclerae nonicteric. NGT in place with thin bilious output - flushed and sumping well on rounds CV : RRR Pulm: breathing comfortably on RA, no respiratory distress Abd: non-distended, soft, appropriately TTP. IR drain with dark SS output. Ext: SCDs in place. Skin: warm, dry Labs: WBC WNL Hgb 12.7->13.6 c/w dilutional anemia K 3.3 Phos 1.3 Peripancreatic fluid culture 03/25/24: Many Neutrophils seen Many Gram Positive Cocci seen Few Gram Negative Rods seen Few Gram Positive Rods seen Assessment: Charles Nick is a 48 y.o. 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 Charles underwent IR drain placement into the peripancreatic fluid collection yesterday 03/25 with fluid culture growing mixed gram negative and positive organisms. He continues on broad spectrum antibiotics with ceftriaxone/flagyl. He remains afebrile with a normal white count this morning. On admission he was noted to have anion gap metabolic acidosis with workup revealing euglycemic DKA. He was started on DKA protocol with insulin gtt, which unfortunately has had to be paused repeatedly for hypokalemia and hypophosphatemia. Appreciate hospital medicine recs for managing his euglycemic DKA. Maintain NGT to LCWS. PICC/TPN today. PROBLEM BASED PLANS: #Euglycemic DKA - DKA protocol - appreciate Hospital Medicine and DM [employer] recs - Repleting lytes - K and Phos #Peripancreatic Fluid - s/p IR drain placement 03/25 - Fluid growing mixed gram negatives and positives - f/u final culture data - Cont broad spectrum abx with ceftriaxone/flagyl #Pain - scheduled IV Tylenol GI: - Pantoprazole 40 mg daily - Zofran PRN - Senna and Miralax daily - Sips and Chips (Give Meds) - NGT to LCWS - PICC/TPN today Renal/: - I/Os, monitor UOP. Monitor lytes, supplement prn. - Fluids: LR Heme: - SQH TID ID: - Cefepime/Flagyl (Started 03/24) Prophy: - Resp: OOB, IS - GI: Pantoprazole PPI, Antiemetics PRN - DVT: chemoprophylaxis as noted above, SCDs, OOB with assistance Activity: - AAT with assistance. Dispo: ISCU Code status: Attempt Cardiopulmonary Resuscitation - Inpatient Signed: JULIO Burgess Surgical Oncology Service Team Pager #[phone] 03/26/24 8:15 AM Associated attestation - Rudi Hernandez MD - 03/26/2024 9:56 AM EDT Attending Addendum I have seen and examined the patient, I have reviewed the vitals, labs and pertinent imaging. I have discussed the documentation above and agree, with the following comments: HD stable, labs note a normal WBC, yesterday an IR drain was placed which noted GPC, GNR, & GPR. The amylase level was also high, even though his post-op amylase was 35 when his surgical drain was removed. This may represent a pancreas leak vs a pocket of undrained fluid from the operation. Either way the IR drain will remain in place continue Abx. In terms of nutrition, we will start PICC/TPN today. Rudi Hernandez MD, MS 03/26/2024 9:53 AM [id number] * Sherry Dillard PA - 03/26/2024 7:35 AM EDT Images from the original note were not included. Interventional Radiology Inpatient Progress Note Admitted 03/24/2024 Procedure(s): Peripancreatic drain placement Post-procedure day: #1 24 Hour Events: No acute events overnight. Last Value 24 Hour Range Temperature 36.4 ??C (97.5 ??F) Temp: [36.4 ??C (97.5 ??F)-37.1 ??C (98.7 ??F)] Heart Rate 83 Heart Rate: [83-106] Blood Pressure 119/82 BP: (117-146)/(67-83) Respiratory Rate 18 Resp: [11-20] SpO2 96 % SpO2: [96 %-99 %] Drains/Tubes (drainage over 24 hours) -Peripancreatic drain- 90 cc Labs: Reviewed-- Recent Labs 03/26/24 0229 03/25/24 0435 03/24/24 2221 WBC 4.6 9.0 9.3 HGB 13.6* 12.7* 14.0 HCT 40.7 39.1* 44.0 PLATELET 220 284 309 Micro: -Peripancreatic fluid- GPC, GPR and GNRs Imagin03/25/24 Assessment: 48 y.o. male with PMH of duodenal CA s/p Whipple on 03/01 currently admitted for euglycemic DKA and peripancreatic abscess s/p drain placement POD #1. Per notes, site look well. Drain is functioning appropriately. Gram stain shows GPC, GPR and GNRs. WBC decreased from 9.0 to 4.6. Vital signs are stable. Patient is covered with ceftriaxone and Flagyl. Plan: -Record drain output. -Forward flush drain with 3-5 cc saline BID to maintain drain patency. -Follow-up for routine drain check in 2 weeks (order already placed in eDH). IR will sign-off at this time. Please page with further questions and concerns. Sherry Dillard PA-C Interventional Radiology IR Team Pager [phone] * Rosie Gaston RN - 03/26/2024 4:18 AM EDT Patient has denied having to urinate x 2. Patient bladder scanned to determine if he was retaining urine. Bladder scan showed 741 ml of urine. MD page and asked can we place bailey cath to better monitor urine output. Will continue with the plan of care. * Rosie Gaston RN - 03/26/2024 3:42 AM EDT Patient potassium 3.2 and phosphate level 1.0. Insulin drip placed on hold. Will administer potassium replacement. MD paged and reported critical labs. Will continue with the plan of care. * Chris Pendleton RN - 03/25/2024 5:03 PM EDT Pt BMP results in; K at 3, Gap at 18. Held insulin infusion. Informed Dr Rubio, IM resident and Rakan, surgery resident. Awaiting for further orders. Remained bedside and continuously monitored pt. * Chris Pendleton RN - 03/25/2024 3:30 PM EDT Called lab to follow up result for BMP sent at noon. Lab analyzer has been down and sample already clotted. Charge Nurse Sterling collected a new sample and immediately sent to the lab. Internal Medicine attending and resident aware of the status quo. Pt stable on tele, NSR. Remained bedside and continuously monitored. * Conor Kaufman RN - 03/25/2024 10:11 AM EDT ANGIO NURSING DATABASE Name: Charles Nick Date of : 1975 AGE: 48 y.o. Address: [facility] [address] [place] [id number] (home) [phone] (work) Mobile: Telephone Information: Referring Provider: Edu Barillas V REASON FOR VISIT: Order Questions Answers Is the patient on anticoagulant / antiplatelet therapy ? Heparin Reason for exam and clinical history: s/p Whipple w/ po intolerance, leukocytosis, tachycardia, hypoT - developing abscess (at pancreatic bed - 5x2 cm) Planned procedure: Peripancreatic drain placement Labs to be performed day of procedure: No labs Sedation: Moderate (Conscious sedation) Prophylactic antibiotic : None Contrast: Omnipaque Additional medications for procedure: Lidocaine Planned access site: provider preference Position: Supine Consent: Pending Medications to discontinue (and days held): None Case Urgency:: D2- Within 24 hours (i.e. 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 03/25/24 Peripancreatic drain IV Fentanyl 100mcg, IV Versed 1.5mg 1000 [address] procedure room [address]5 via stretcher. Onto table supine. All monitors, O2, safety strap in place. Meds per protocol. Laboratory Results: Lab Results Component Value Date INR 1.1 12/25/2022 Lab Results Component Value Date CREATININE 0.62 (L) 03/25/2024 Lab Results Component Value Date K 3.3 (L) 03/25/2024 Lab Results Component Value Date PLATELET 284 03/25/2024 * Chris Pendleton RN - 03/25/2024 9:30 AM EDT 0815 - Pt vomited, vomitus characteristic bilious. Airway protected. Paged Dr Hernandez. Milagrosfran PRN given. Cleaned and kept comfortable. Monitored vitals closely. Seen by Dr Hernandez and her team, placed an NGT connected to low cont. Suction. All new orders, acknowledged. Seen by Internal Medicine. Taken by transport for IR procedure scheduled today. Accompanied by MELANIE Katz. * Gary Mtz PA - 03/25/2024 9:15 AM EDT NG tube insertion: ~5.5cc urojet applied to L nare. On inserting the NG into the L nare some resistance was met withinthe first few centimeters, so the decision was made to place on the R. ~5.5cc urojet applied to R nare. NG tube inserted without difficulty, secured @ 63cm at the R nare with immediate return of 250 cc dark bilious output on placement to LCWS. Awaiting KUB to confirm placement. * Chalino Cristina MD - 03/25/2024 8:47 AM EDT Hepato Pancreato Biliary Surgery Inpatient Progress Note Patient Name: Charles Nick ; Age: 4 1975; 48 y.o. [facility] Today's Date: 03/25/24 ID: Charles Nick is a 48 y.o. 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 24 Hour Events: - Transferred from [facility] likely in DKA and w/ new peripancreatic fluid collection - Started on IVF, abx, and IR consulted for possible drain placement - Acidotic on labs this morning, possible euglycemic DKA - Bilious vomiting after pt was seen on rounds, NGT placed - IR and medicine consults placed Subjective: Charles was extremely tired and moderately uncomfortable this morning. Reports he has not been feeling well at home the last few days, very low PO intake since discharge which has worsened last few days. Hospital Course: 03/24: Admitted from [facility]. IVF & abx started 03/25 HD1: HAGMA (CO2 8, lactate 1.2), possible euglycemic DKA (BOHB 6.3), IR consulted for possibledrain placement. Objective Physical Exam Vitals: Temp: [36 ??C (96.8 ??F)-37.1 ??C (98.7 ??F)] Heart Rate: [94-106] Resp: [10-20] BP: (122-131)/(70-91) SpO2: [97 %-98 %] Heart Rate from SpO2: [95 bpm-99 bpm] Gen: NAD, tired in bed, HEENT: sclerae nonicteric CV : RRR Pulm: breathing comfortably on RA, no respiratory distress Abd: non-distended, soft, nontender Ext: SCDs in place. Skin: warm, dry Labs: Last wbc, hgb, hct plt Recent Labs 03/25/24 0435 WBC 9.0 HGB 12.7* HCT 39.1* Recent Labs 03/25/24 0435 03/24/24 2221 03/08/24 0444 NA 141 137 132* K 3.3* 3.8 3.2* CL 112* 105 97* CO2 8* 11* 21* BUN 9* 11 3* CREATININE 0.62* 0.79* 0.57* BOHB: 6.3 Lactate: 1.2 Assessment: Charles Nick is a 48 y.o. 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 03/25: Charles's acidosis today is most likely driven by euglycemic DKA rather than infectious process going on given elevated BOHB and nml white count. His peripancreatic fluid collection around priorsurgery site may be c/w short term postoperative changes rather than true infectious process. Treating for DKA and drain placement with IR pending clinical course. Bilious emesis after rounds today likely 2/2 DKA rather than obstructive postop etiology, placed NGT. PROBLEM BASED PLANS: #Euglycemic DKA - D5W, insulin gtt - Repleting lytes - Medicine consult #Peripancreatic Fluid - IR consult placed, drain insertion scheduled. #Pain - Tylenol PRN Endo: - SS insulin q4h check GI: - Pantoprazole 40 mg daily - Zofran PRN - Senna and Miralax daily - NPO diet (Give Meds) - NGT placed Renal/: - I/Os, monitor UOP. Monitor lytes, supplement prn. - Fluids: LR Heme: - SQH TID ID: - CTX (Started 03/24) - Flagyl (Started 03/24) Prophy: - Resp: OOB, IS - GI: Pantoprazole PPI, Antiemetics PRN - DVT: chemoprophylaxis as noted above, SCDs, OOB with assistance Activity: - AATwith assistance. Dispo: ISCU Code status: Attempt Cardiopulmonary Resuscitation - Inpatient Signed: Chalino Cristina MD Hepato Pancreato Biliary Surgery Service Team Pager #[phone] 03/25/24 9:55 AM Associated attestation - Rudi Hernandez MD - 03/25/2024 10:54 AM EDT Attending Addendum I have seen and examined the patient, I have reviewed the vitals, labs and pertinent imaging. I have discussed the documentation above and agree, with the following comments: HD stable, Charles Nick had an episode of emesis, and NGT was placed. I dicussed with him that hehas a peripancreatic collection which could be an evolving abscess and that despite his WBC being 9, we would drain it as he had had no appetite, and may have an ileus secondary to this collection. Charles Nick and his partner agree to proceed. In addition we will consult medicine to help manage his diabetes as there may be a component of DKA contributing to him feeling unwell. Rudi Hernandez MD, MS 03/25/2024 10:51 AM p2111 documented in this encounter H&P Notes * Stoner, Gary C, MD - 03/25/2024 9:43 AM EDT INTERVENTIONAL RADIOLOGY FOCUSED H&P: Procedure: Update to H&P: The patient's history and physical exam have been reviewed and completed. There has been NO interval change from that of the pre-procedural note done within the last 30 days. There is NO change in the procedural plan. Physical Exam: Cardiovascular: Regular, Normal Pulmonary: Breath sounds clear to auscultation Abdomen: distended, non-tender\ Vascular: WWP Meds: Current medications reviewed. No medications held. Labs: No new relevant labs. The planned procedure (and sedation plan if appropriate) , its benefits and risks, and alternativeswere discussed with the patient. The patient consented to the procedure. PRE-SEDATION ASSESSMENT: Sedation Plan: moderate (conscious sedation) ASA: 3: Patient with severe systemic disease Mallampati: II: tonsillar pillars are blocked by the tongue Confirm NPO status: Yes History of anesthetic complications: No Current medications reviewed: Yes Allergies reviewed: Yes Source Note - Joe Quintero DO - 03/25/2024 7:07 AM EDT Images from the original note were not included. INTERVENTIONAL RADIOLOGY FOCUSED H&P and PRE-PROCEDURE NOTE: PCP: Olga Hoffman APRN Referring Provider: Marcelina Hernandez / Saad Kim Planned Procedure: Procedure Indication: Status Post Whipple for duodenal carcinoma with intolerance to oral intake, leukocytosis, tachycardia, hypotension- developing abscess (at pancreatic bed - 5x2 cm) Procedure Request: Procedure request received through the Interventional Radiology eDH order queue. Presenting Diagnosis/ Complaint: Charles Nick is a 48 y.o. male presenting to IR for marii-pancreatic abscess drainage catheter placement. 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 IR History: None at [facility]. Antiplatelets: None. Anticoagulants: None. Recent Laboratories: Platelets: 284 on 03/25/24. INR: 1.1 on 12/25/22. Creatinine: 0.62 on 03/25/24. Getting Laboratories Before Procedure: No. Allergies: None pertinent. 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 Perihepatic abscess K65.0 Past Medical History: Diagnosis Date CKD (chronic kidney disease) stage 3, GFR 30-59 ml/min 01/31/2011 Obesity 01/31/2011 Past Surgical History: Procedure Laterality Date IR BIOPSY LIVER PERCUTANEOUS - NON-FOCAL PARENCHYMA 01/07/2023 IR Biopsy Liver Percutaneous 01/07/2023 Juan Wright MD [facility] INTERVENTIONL RAD PRO PART REMV PANC, PROX+REMV DUOD+ANAST N/A 03/01/2024 @CHAKA PROCEDURE (WRVU 52.84) performed by Rudi Hernandez MD at [facility] MAIN OR PRO TRANSFER SKIN PEDICLE FLAP N/A 03/01/2024 TRANSFER, INTERMEDIATE, ANY PEDICLE FLAP, ANY LOCATION (WRVU 4.77) performed by Rudi Hernandez MD at [facility] MAIN OR Medications: No current facility-administered medications on file prior to encounter. Current Outpatient Medications on File Prior to Encounter Medication Sig Dispense Refill ondansetron ODT (Zofran-ODT) 4 mg disintegrating tablet Take 1 tablet by mouth every 8 hours as needed for Nausea. 9 tablet 0 omeprazole (PriLOSEC) [address] capsule Take 1 capsule by mouth daily. 90 capsule 1 potassium chloride ER (Klor-Con, K-Tab) 10 mEq ER tablet Take 1 tablet by mouth 2 times daily. 30 tablet 0 insulin glargine-yfgn (Semglee,insulin glarg-yfgn,Pen) 100 unit/mL (3 mL) Insulin Pen Inject 10 Units subcutaneously every morning. Or alternative covered by insurance 15 mL 3 Insulin [place], Disposable, (BD Ultra-Fine Micro Pen Needle) 32 gauge x 1/4 Needle 1 each by [facility].(Non-Drug; Combo Route) route 2 times daily. 300 each 3 montelukast (Singulair) 10 mg tablet Take 10 mg by mouth daily. magnesium oxide (Mag-Ox) 400 mg (241.3 mg magnesium) Tablet Take 1 tablet by mouth nightly. amLODIPine (Norvasc) 10 mg tablet Take 1 tablet by mouth daily. naltrexone (Depade) 50 mg tablet Take 50 mg by mouth daily. Farxiga 10 mg tablet Take 1 tablet by mouth daily. citalopram (CeleXA) 10 mg tablet Take 10 mg by mouth daily. gabapentin (NEURONTIN) 600 mg Tablet Take 600 mg by mouth 3 times daily. furosemide (Lasix) 20 mg Tablet Take 1 tablet by mouth 2 times daily. 180 tablet 3 wpooem-kxbzdbcv-mttopsr (Zenpep) 40,000-126,000- 168,[address] capsule Take 2 capsules by mouth 3times daily. Take 2 capsules with meals and 1 capsule with snacks. 300 capsule 3 lidocaine (Lidoderm) 5% Adhesive Patch, Medicated Apply 1 patch onto the skin daily. (leave on for 12 hours and remove for 12 hours) (Patient not taking: Reported on 03/17/2024) 10 patch 0 oxyCODONE (Roxicodone) 5 mg tablet Take 1-2 tablets by mouth every 4 hours as needed for Pain (5mg for moderate pain 4-6 not controlled with Tylenol, 10mg for severe pain 7-10 not controlled with Tylenol). (Patient not taking: Reported on 03/17/2024) 10 tablet 0 ondansetron ODT (Zofran-ODT) 4 mg disintegrating tablet Take 4 mg by mouth every 8 hours as needed for Nausea. tadalafiL (CIALIS) 10 mg Tablet TAKE 1 TABLET BY MOUTH ONCE A DAY NEEDED. TAKE 1 HOUR PRIOR TO SEXUAL INTERCOURSE Allergies: Penicillins Social History and Habits: Social History Socioeconomic History Marital status: Spouse name: Not on file Number of children: Not on file Years of education: Not on file Highest education level: Not on file Occupational History Not on file Tobacco Use Smoking status: Never Smokeless tobacco: Never Vaping Use Vaping status: Never Used Substance and Sexual Activity Alcohol use: Not Currently Drug use: Not Currently Sexual activity: Not on file Other Topics Concern Not on file Social History Narrative Not on file Social Determinants of Health Financial Resource Strain: Medium Risk (01/23/2023) Overall Financial Resource Strain (CARDIA) Difficulty of Paying Living Expenses: Somewhat hard Food Insecurity: No Food Insecurity (03/02/2024) Hunger Vital Sign Worried About Running Out of Food in the Last Year: Never true Ran Out of Food in the Last Year: Never true Transportation Needs: No Transportation Needs (03/02/2024) PRAPARE - Transportation Lack of Transportation (Medical): No Lack of Transportation (Non-Medical): No Physical Activity: Not on file Intimate Partner Violence: Not At Risk (03/24/2024) IPV Inpatient Questions Prevent Contact with Others: no Feels Threatened by Someone: no Feels Unsafe at Home: no Physical Signs of Abuse Present: no Housing Stability: Unknown (03/02/2024) Housing Stability Vital Sign Unable to Pay for Housing in the Last Year: No Number of Times Moved in the Last Year: Not on file Homeless in the Last Year: No Significant Family History: No family history on file. Pertinent ROS: as per HPI Labs: Lab Results Component Value Date WBC 9.0 03/25/2024 HCT 39.1 (L) 03/25/2024 PLATELET 284 03/25/2024 INR 1.1 12/25/2022 BUN 9 (L) 03/25/2024 CREATININE 0.62 (L) 03/25/2024 ALKPHOS 94 03/08/2024 AST 11 03/08/2024 ALBUMIN 3.0 (L) 03/08/2024 BILITOT 0.4 03/08/2024 ALT 22 03/08/2024 PROT 6.1 03/08/2024 K 3.3 (L) 03/25/2024 Imaging: Physical Exam: Pending (to be performed in angio the day of procedure) ASA: Pending (to be assessed in angio the day of procedure) Mallampati Class: Pending (to be assessed in angio the day of procedure) Assessment: 48 y.o. male presenting to IR for marii-pancreatic abscess drainage catheter placement. 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 Reviewed with Attending: Dr. Quintero Plan: Planned procedure: Peripancreatic drain placement Labs to be performed day of procedure: No labs Sedation: Moderate (Conscious sedation) Prophylactic antibiotic : None Contrast: Omnipaque Additional medications for procedure: Lidocaine Planned access site: provider preference Position: Supine Consent: Pending Medications to discontinue (and days held): None Case Urgency:: D2- Within 24 hours (i.e. can be next day) 03/25/2024 * Joe Quintero DO - 03/25/2024 7:07 AM EDT Images from the original note were not included. INTERVENTIONAL RADIOLOGY FOCUSED H&P and PRE-PROCEDURE NOTE: PCP: Olga Hoffman APRN Referring Provider: Marcelina Hernandez / Saad Kim Planned Procedure: Procedure Indication: Status Post Whipple for duodenal carcinoma with intolerance to oral intake, leukocytosis, tachycardia, hypotension- developing abscess (at pancreatic bed - 5x2 cm) Procedure Request: Procedure request received through the Interventional Radiology eDH order queue. Presenting Diagnosis/ Complaint: Charles Nick is a 48 y.o. male presenting to IR for marii-pancreatic abscess drainage catheter placement. 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 IR History: None at [facility]. Antiplatelets: None. Anticoagulants: None. Recent Laboratories: Platelets: 284 on 03/25/24. INR: 1.1 on 12/25/22. Creatinine: 0.62 on 03/25/24. Getting Laboratories Before Procedure: No. Allergies: None pertinent. 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 Perihepatic abscess K65.0 Past Medical History: Diagnosis Date CKD (chronic kidney disease) stage 3, GFR 30-59 ml/min 01/31/2011 Obesity 01/31/2011 Past Surgical History: Procedure Laterality Date IR BIOPSY LIVER PERCUTANEOUS - NON-FOCAL PARENCHYMA 01/07/2023 IR Biopsy Liver Percutaneous 01/07/2023 Juan Wright MD [facility] INTERVENTIONL RAD PRO PART REMV PANC, PROX+REMV DUOD+ANAST N/A 03/01/2024 @CHAKA PROCEDURE (WRVU 52.84) performed by Rudi Hernandez MD at [facility] MAIN OR PRO TRANSFER SKIN PEDICLE FLAP N/A 03/01/2024 TRANSFER, INTERMEDIATE, ANY PEDICLE FLAP, ANY LOCATION (WRVU 4.77) performed by Rudi Hernandez MD at [facility] MAIN OR Medications: No current facility-administered medications on file prior to encounter. Current Outpatient Medications on File Prior to Encounter Medication Sig Dispense Refill ondansetron ODT (Zofran-ODT) 4 mg disintegrating tablet Take 1 tablet by mouth every 8 hours as needed for Nausea. 9 tablet 0 omeprazole (PriLOSEC) [address] capsule Take 1 capsule by mouth daily. 90 capsule 1 potassium chloride ER (Klor-Con, K-Tab) 10 mEq ER tablet Take 1 tablet by mouth 2 times daily. 30 tablet 0 insulin glargine-yfgn (Semglee,insulin glarg-yfgn,Pen) 100 unit/mL (3 mL) Insulin Pen Inject 10 Units subcutaneously every morning. Or alternative covered by insurance 15 mL 3 Insulin [place], Disposable, (BD Ultra-Fine Micro Pen Needle) 32 gauge x 1/4 Needle 1 each by [facility].(Non-Drug; Combo Route) route 2 times daily. 300 each 3 montelukast (Singulair) 10 mg tablet Take 10 mg by mouth daily. magnesium oxide (Mag-Ox) 400 mg (241.3 mg magnesium) Tablet Take 1 tablet by mouth nightly. amLODIPine (Norvasc) 10 mg tablet Take 1 tablet by mouth daily. naltrexone (Depade) 50 mg tablet Take 50 mg by mouth daily. Farxiga 10 mg tablet Take 1 tablet by mouth daily. citalopram (CeleXA) 10 mg tablet Take 10 mg by mouth daily. gabapentin (NEURONTIN) 600 mg Tablet Take 600 mg by mouth 3 times daily. furosemide (Lasix) 20 mg Tablet Take 1 tablet by mouth 2 times daily. 180 tablet 3 qbwizi-oqwqcuqu-wdodsxv (Zenpep) 40,000-126,000- 168,[address] capsule Take 2 capsules by mouth 3times daily. Take 2 capsules with meals and 1 capsule with snacks. 300 capsule 3 lidocaine (Lidoderm) 5% Adhesive Patch, Medicated Apply 1 patch onto the skin daily. (leave on for 12 hours and remove for 12 hours) (Patient not taking: Reported on 03/17/2024) 10 patch 0 oxyCODONE (Roxicodone) 5 mg tablet Take 1-2 tablets by mouth every 4 hours as needed for Pain (5mg for moderate pain 4-6 not controlled with Tylenol, 10mg for severe pain 7-10 not controlled with Tylenol). (Patient not taking: Reported on 03/17/2024) 10 tablet 0 ondansetron ODT (Zofran-ODT) 4 mg disintegrating tablet Take 4 mg by mouth every 8 hours as needed for Nausea. tadalafiL (CIALIS) 10 mg Tablet TAKE 1 TABLET BY MOUTH ONCE A DAY NEEDED. TAKE 1 HOUR PRIOR TO SEXUAL INTERCOURSE Allergies: Penicillins Social History and Habits: Social History Socioeconomic History Marital status: Spouse name: Not on file Number of children: Not on file Years of education: Not on file Highest education level: Not on file Occupational History Not on file Tobacco Use Smoking status: Never Smokeless tobacco: Never Vaping Use Vaping status: Never Used Substance and Sexual Activity Alcohol use: Not Currently Drug use: Not Currently Sexual activity: Not on file Other Topics Concern Not on file Social History Narrative Not on file Social Determinants of Health Financial Resource Strain: Medium Risk (01/23/2023) Overall Financial Resource Strain (CARDIA) Difficulty of Paying Living Expenses: Somewhat hard Food Insecurity: No Food Insecurity (03/02/2024) Hunger Vital Sign Worried About Running Out of Food in the Last Year: Never true Ran Out of Food in the Last Year: Never true Transportation Needs: No Transportation Needs (03/02/2024) PRAPARE - Transportation Lack of Transportation (Medical): No Lack of Transportation (Non-Medical): No Physical Activity: Not on file Intimate Partner Violence: Not At Risk (03/24/2024) IPV Inpatient Questions Prevent Contact with Others: no Feels Threatened by Someone: no Feels Unsafe at Home: no Physical Signs of Abuse Present: no Housing Stability: Unknown (03/02/2024) Housing Stability Vital Sign Unable to Pay for Housing in the Last Year: No Number of Times Moved in the Last Year: Not on file Homeless in the Last Year: No Significant Family History: No family history on file. Pertinent ROS: as per HPI Labs: Lab Results Component Value Date WBC 9.0 03/25/2024 HCT 39.1 (L) 03/25/2024 PLATELET 284 03/25/2024 INR 1.1 12/25/2022 BUN 9 (L) 03/25/2024 CREATININE 0.62 (L) 03/25/2024 ALKPHOS 94 03/08/2024 AST 11 03/08/2024 ALBUMIN 3.0 (L) 03/08/2024 BILITOT 0.4 03/08/2024 ALT 22 03/08/2024 PROT 6.1 03/08/2024 K 3.3 (L) 03/25/2024 Imaging: Physical Exam: Pending (to be performed in angio the day of procedure) ASA: Pending (to be assessed in angio the day of procedure) Mallampati Class: Pending (to be assessed in angio the day of procedure) Assessment: 48 y.o. male presenting to IR for marii-pancreatic abscess drainage catheter placement. 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 Reviewed with Attending: Dr. Quintero Plan: Planned procedure: Peripancreatic drain placement Labs to be performed day of procedure: No labs Sedation: Moderate (Conscious sedation) Prophylactic antibiotic : None Contrast: Omnipaque Additional medications for procedure: Lidocaine Planned access site: provider preference Position: Supine Consent: Pending Medications to discontinue (and days held): None Case Urgency:: D2- Within 24 hours (i.e. can be next day) 03/25/2024 * Janette Austin MD - 03/24/2024 9:18 PM EDT SURGERY HISTORY AND PHYSICAL Patient Name: Charles Nick MR#: [id number] : 1975 Admission Date: 03/24/2024 Indication for Admission: Perihepatic abscess History of Present Illness: Charles Nick is a 48 y.o. 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 Patient has been feeling increasing fatigue since discharge from Whipple procedure approximately 10days ago. He takes his BP at home and has noticed that it is low and he feels dizzy and SOB with activity with several episodes of pre/syncope. He does not have abdominal pain but does have a small area of dehiscence of his midline incision with minimal serous drainage. He has tolerated food without nausea and vomiting but had an episode of large volume emesis earlier today. No chest pain or palpitations. No fevers or chills. Patient has not been taking home dose amlodipine or lasix due to hypotension. He does not smoke anddrinks alcohol occasionally. No recreational drug use. No new medical problems since his last admission. He initially presented to [facility] and was transferred here for further care. His partner is with him at bedside. 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 Perihepatic abscess K65.0 Past Surgical History: Past Surgical History: Procedure Laterality Date IR BIOPSY LIVER PERCUTANEOUS - NON-FOCAL PARENCHYMA 01/07/2023 IR Biopsy Liver Percutaneous 01/07/2023 Juan Wright MD [facility] INTERVENTIONL RAD PRO PART REMV PANC, PROX+REMV DUOD+ANAST N/A 03/01/2024 @WHIPPLE PROCEDURE (WRVU 52.84) performed by Rudi Hernandez MD at [facility] MAIN OR PRO TRANSFER SKIN PEDICLE FLAP N/A 03/01/2024 TRANSFER, INTERMEDIATE, ANY PEDICLE FLAP, ANY LOCATION (WRVU 4.77) performed by Rudi Hernandez MD at [facility] MAIN OR Home Medications: Medications Prior to Admission Medication Sig Dispense Refill Last Dose ondansetron ODT (Zofran-ODT) 4 mg disintegrating tablet Take 1 tablet by mouth every 8 hours as needed for Nausea. 9 tablet 0 Past Week omeprazole (PriLOSEC) [address] capsule Take 1 capsule by mouth daily. 90 capsule 1 03/23/2024 potassium chloride ER (Klor-Con, K-Tab) 10 mEq ER tablet Take 1 tablet by mouth 2 times daily. 30 tablet 0 03/23/2024 insulin glargine-yfgn (Semglee,insulin glarg-yfgn,Pen) 100 unit/mL (3 mL) Insulin Pen Inject 10 Units subcutaneously every morning. Or alternative covered by insurance 15 mL 3 03/23/2024 Insulin [place], Disposable, (BD Ultra-Fine Micro Pen Needle) 32 gauge x 1/4 Needle 1 each by [facility].(Non-Drug; Combo Route) route 2 times daily. 300 each 3 03/23/2024 montelukast (Singulair) 10 mg tablet Take 10 mg by mouth daily. 03/23/2024 magnesium oxide (Mag-Ox) 400 mg (241.3 mg magnesium) Tablet Take 1 tablet by mouth nightly. 03/23/2024 amLODIPine (Norvasc) 10 mg tablet Take 1 tablet by mouth daily. Past Month naltrexone (Depade) 50 mg tablet Take 50 mg by mouth daily. Past Month Farxiga 10 mg tablet Take 1 tablet by mouth daily. 03/23/2024 citalopram (CeleXA) 10 mg tablet Take 10 mg by mouth daily. 03/23/2024 gabapentin (NEURONTIN) 600 mg Tablet Take 600 mg by mouth 3 times daily. 03/23/2024 furosemide (Lasix) 20 mg Tablet Take 1 tablet by mouth 2 times daily. 180 tablet 3 Past Month ktbuth-prpdvbva-vdryltp (Zenpep) 40,000-126,000- 168,[address] capsule Take 2 capsules by mouth 3times daily. Take 2 capsules with meals and 1 capsule with snacks. 300 capsule 3 lidocaine (Lidoderm) 5% Adhesive Patch, Medicated Apply 1 patch onto the skin daily. (leave on for 12 hours and remove for 12 hours) (Patient not taking: Reported on 03/17/2024) 10 patch 0 oxyCODONE (Roxicodone) 5 mg tablet Take 1-2 tablets by mouth every 4 hours as needed for Pain (5mg for moderate pain 4-6 not controlled with Tylenol, 10mg for severe pain 7-10 not controlled with Tylenol). (Patient not taking: Reported on 03/17/2024) 10 tablet 0 [DISCONTINUED] clindamycin (Cleocin) 150 mg capsule Take 150 mg by mouth daily. [DISCONTINUED] LORazepam (Ativan) 0.5 mg tablet Take 1 tablet by mouth as needed. ondansetron ODT (Zofran-ODT) 4 mg disintegrating tablet Take 4 mg by mouth every 8 hours as needed for Nausea. [DISCONTINUED] cyanocobalamin, Vitamin B-12, (Vitamin B-12) 100 mcg tablet Take 100 mcg by mouth daily. [DISCONTINUED] famotidine (Pepcid) 20 mg tablet Take 20 mg by mouth 2 times daily. tadalafiL (CIALIS) 10 mg Tablet TAKE 1 TABLET BY MOUTH ONCE A DAY NEEDED. TAKE 1 HOUR PRIOR TO SEXUAL INTERCOURSE More than a month Allergies: Allergies Allergen Reactions Penicillins Rash Past Family History: No family history on file. Social History: Social History Tobacco Use Smoking status: Never Smokeless tobacco: Never Vaping Use Vaping status: Never Used Substance Use Topics Alcohol use: Not Currently Drug use: Not Currently ROS: As per HPI. Remainder of ROS is otherwise noncontributory. Vitals: Last Value Range last 24 hrs Temperature Temp: 36.5 ??C (97.7 ??F) Temp: [36.5 ??C (97.7 ??F)] Heart Rate Heart Rate: 98 Heart Rate from SpO2: 98 bpm Heart Rate: [94-98] Heart Rate From SP02 Min: 95 bpm Max: 99 bpm Blood Pressure BP: (!) 127/91 BP: (124-131)/(80-91) BP (Arterial Line): -- Respiratory Rate Resp: 13 Resp: [10-13] SpO2 SpO2: 98 % SpO2: [97 %-98 %] O2 Device Physical Exam: GEN: resting in bed, conversant, appears tired but is able to answer questions HEENT: normocephalic, atraumatic CHEST: comfortable work of breathing on RA CV: regular rate, well perfused ABD: soft, minimally tender, non distended. Large midline incision with steri strips, small area ofdehiscence at superior edge about 1 cm wide EXTR: moving all extremities spontaneously NEURO: awake and alert, grossly intact, nonfocal, follows commands Labs: Recent Labs 03/24/24 2221 WBC 9.3 HGB 14.0 HCT 44.0 PLATELET 309 Recent Labs 03/24/24 2221 NA 137 K 3.8 CL 105 CO2 11* BUN 11 CREATININE 0.79* GLUCOSE 143 CALCIUM 8.4* MAGNESIUM 0.83 PHOS 2.4* Imaging & Studies: 03/24/24 CT Abdomen Pelvis (2nd read) Pending. ASSESSMENT AND PLAN: Charles Nick is a 48 y.o. 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 Episodes of hypotension and tachycardia and persistent increased fatigue for the last 10 days. There is concern for sepsis due to intraabdominal fluid collection, presumed abscess, demonstrated on CT at outside hospital. He has been started on IVF, cef/flagyl, and made NPO. Plan for drainage of fluid collection tomorrow by IR. Plan: Pain: Tylenol PRN Endo: SS insulin q4h check CV: Hemodynamically stable Resp: Encourage IS, OOB with assistance GI: Pantoprazole 40 mg daily Zofran PRN Senna and Miralax daily NPO diet (Give Meds) Renal/: I/Os, monitor UOP. Monitor lytes, supplement prn. Fluids: LR Heme: SQH TID ID: Rocephin Flagyl Prophy: Resp: OOB, IS GI: Pantoprazole PPI, Antiemetics PRN DVT: chemoprophylaxis as noted above, SCDs, OOB with assistance Activity: AATwith assistance. Dispo: Level of Care Step-Down Code Status: Attempt Cardiopulmonary Resuscitation - Inpatient Janette Austin MD 03/24/2024 Surgical Oncology Service Team pager #[phone] documented in this encounter Procedure Notes * Mary Alice Jacobs RN - 03/26/2024 4:12 PM EDTAssociated Order(s): PLACE PICC LINE: CONTACT VASCULAR ACCESS PICC/Midline Insertion Procedure Note Indications: TPN, Medication [...] procedure, the patient's identity, intended procedure, site/side, correctpatient positioning and presence of the site cb was confirmed as applicable. The medical history and chart were reviewed to rule out potential contraindications to the planned procedure. Hand Hygiene: The production control pegboard clerk did perform hand hygiene prior to line insertion. Catheter type: PICC Lot number: [id number] Procedure Technique: Skin was prepped with chlorhexidine. Skin preparation agent was completely dry at the time of first skin puncture. The following barrier precaution methods were used:large sterile drape, maske/eye shield, large sterile gown, sterile gloves, and cap. 3 ml of 1% Lidocaine was used for skin wheal. Ultrasound was used for guidance. Radiographic contrast agent was not injected for vein identification. Procedure Details: Order received for catheter placement. A 5 Fr. triple lumen Bard Power catheter was placed into theright basilic vein over a 0.018 inch guidewire [...] PICC placement. Mary Alice Jacobs RN 03/26/2024 documented in this encounter Miscellaneous Notes * Care Management Discharge - Kimberly Price RN - 04/01/2024 2:17 PM EDT CARE MANAGEMENT FINAL DISCHARGE NOTE Chart reviewed, care reviewed with primary team and at interdisciplinary rounds. Patient is medically ready for discharge to home with services- home health for PT with Robert [facility]CHANT[facility]. Needs for Transition of Care: Plan for discharge is: Home w/ Services Outpatient Agency/Support Group Needs: Homecare agency Home Health Services: Physical Therapy Agency Referrals & Follow-up Care: Contact information for follow-up [facility], [place] [address] [place] [address] [facility] [place] [address] [place] [address] Transportation: family or friend will provide Functional status prior to admission: Assistive Equipment (Patient was using a walking stick the last week as his health begin to decline. Prior to that he was independant.) Home Environment: Others in the home: child(denia), adult, pet(s), significant other (Patient live with his SO, a total of 4 children between them, 2 dogs, and 1 cat.). Current Living Arrangements: home/apartment/condo. Accessibility Concerns:Patient lives in a two story home with 2 TANJA.. Current Functional Ability: Assistive Person DME used at home: shower chair, grab bar - toilet, grab bar - tub/shower, other (see comments) (walking stick) DME Needed at Discharge: Patient is insured through: Primary Insurance: [facility] Payor: [facility] / Plan: [facility] PPO / Product Type: *No Product type* / Secondary Insurance: N/A Prescription Coverage: Yes This plan was formulated with input from patient and team. Patient plans to discharge to home with home health services. Patient will transport to home via private vehicle with his . All are in agreement with plan. Kimberly Price, MIGUEL ANGEL, RN * Consult Note - Sharon Stafford RN - 04/01/2024 2:03 PM EDTSummary: VAS PICC D/C Patient Guidelines for Self-Care after PICC (Peripherally Inserted Central Catheter) Removal Your PICC was removed on ___04/01/24 at 1345 A Petroleum ointment was applied to the insertion site (where the PICC went into your skin). The nurse applied gauze and a transparent (see-through) dressing over the insertion site. To help your PICC insertion site heal: *Avoid heavy lifting (for example, no more than a gallon of milk) or vigorous activities for 24 hours * Keep the dressing over the insertion site dry for 24 hours * You can remove the dressing after 24 hours. Call your doctor after your PICC has been removed if you experience any of the following: * Fever (temperature over 100.1F) * Chills * Drainage from the insertion site ( including bleeding). *Redness, warmth, pain, swelling, or a pink/red streak going up your arm *A knot at the insertion site or anywhere in the arm *If bleeding should occur, hold firm pressure for 3-5 minutes. Do not remove the dressing that the nurse put on when the PICC was removed. If needed, apply another dressing over the first dressing. If bleeding does not stop, call or seek medical attention. PT'S PICC REMOVED WITHOUT RESISTANCE, DRESSING APPLIED, CATHETER LENGTH 45CM WHICH MATCHES LENGTH ON INSERTION. * Plan of Care - Bernard Ritchie RN - 04/01/2024 5:43 AM EDT OUTCOME EVALUATION NOTE: OUTCOME SUMMARY: Patient A&Ox4, VSS on RA. Denies nausea/vomiting, CP, SOB. No pain reported throughout shift. Dressings to RLE + midline abdomen CDI. Patient voiding to bathroom w/ hands off supervision. LBM 03/30. PN continues to infuse without delay. No nausea noted and pt tolerating ordered diet. PLAN MOVING FORWARD: Pain control Mobilize D/C planning Diet progression INDIVIDUALIZED FALL PREVENTION INTERVENTIONS: Patient-specific fall risk factors per assessment: [current deficits]: Hospital environment, Pain, Medications. Assistance [level of assistance required for transfers and ambulation]: Supervision. Supervision [direct monitoring required during toileting and ADLs]: Supervision. Surveillance [continuous indirect monitoring]: Hourly rounding, Denny, Nursing knowledge exchange,Call ibarra within reach, Bed alarm. Bernard Ritchie RN * Consult Note - Alma Dasilva, RD - 03/31/2024 7:43 AM EDT Images from the original note were not included. Nutrition Progress Note Charles Nick is a 48 y.o. 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 Reason for Assessment: TPN, Follow-up Nutrition Recommendations: Parenteral Nutrition Indications: Impaired absorption or loss of nutrients TPN will provide 1838 kcal as 110 g AA, 220 g dextrose 60 g SMOF lipid in 2 L volume and 37.5mEq/L Na concentration. - Changes: increasing I:C ratio (1:3.6) - 60U insulin in PN per endo Daily BMP with Mg and Phos- continue to replete as indicated Weekly LFTs and TG Daily Weights - appreciate updated standing scale wt Carb Control Lvl 2 diet (60/60/75) - Monitor and encourage po intake - document % intake in flowsheets Pt meets criteria for severe protein calorie malnutrition in the setting of acute illness as outlined below I was able to discuss plan with provider Surg Onc 501 Jeffy Cristina MD. Current Nutrition Regimen: Active Orders Diet Carb Control diet 60/60/75 CHO counting level 2 Frequency: Effective Now Number of Occurrences: Until Specified TPN Orders: TPN Medication Recent History (Show up to 3 orders; newest on the left. Changes between the two most recent orders are indicated.) Start date and time 03/31/2024 1800 03/30/2024 1800 03/29/2024 1800 Adult TPN [[id number]] Adult TPN [[id number]] Adult TPN [[id number]] Order Status Active Last Dose in Progress Completed Last Admin New Bag at 03/30/2024 1704 by Micha Butler, RN New Bag at 03/29/2024 1750 by Rosie Gaston RN Frequency Continuous (TPN) Continuous (TPN) Continuous (TPN) Medications insulin regular human 60 Units 50 Units 32 Units Additives adult multivitamin 10 mL 10 mL 10 mL adult trace elements Zn-Cu-Mn-Se (Tralement) 1 mL 1 mL 1 mL thiamine 100 mg 100 mg 100 mg Electrolytes potassium phosphate 40 mmol 40 mmol 40 mmol potassium chloride 68 mEq 68 mEq 68 mEq sodium chloride 75 mEq 75 mEq 90 mEq calcium gluconate 14 mEq 14 mEq 14 mEq magnesium sulfate 20 mEq 20 mEq 20 mEq Dextrose dextrose 70% 220 g 220 g 160 g Amino Acids amino acid 15% no.5 (Clinisol) 110 g 110 g 104 g QS Base sterile water 513.68 mL 513.78 mL 1,085.91 mL Lipid fat emulsion soy/MCT /olive/fish (SMOFlipid) 20% 20% 65 g 65 g 55 g Energy Contribution Proteins 440 kcal 440 kcal 416 kcal Dextrose 748.03 kcal 748.03 kcal 544.07 kcal Lipids 650 kcal 650 kcal 550 kcal Total 1,838.03 kcal 1,838.03 kcal 1,510.07 kcal Electrolyte Ion Calculated Amount Sodium 75 mEq 75 mEq 90 mEq Potassium 126.67 mEq 126.67 mEq 126.67 mEq Calcium 14 mEq 14 mEq 14 mEq Magnesium 20 mEq 20 mEq 20 mEq Aluminum -- -- -- Phosphate 40 mmol 40 mmol 40 mmol Chloride 143 mEq 143 mEq 158 mEq Acetate 93.13 mEq 93.13 mEq 88.05 mEq Chloride: Acetate Ratio 1.535 1.535 1.795 Trace Elements Total Trace Elements 1 mL 1 mL 1 mL Copper 0.3 mg 0.3 mg 0.3 mg Manganese 55 mcg 55 mcg 55 mcg Selenium 60 mcg 60 mcg 60 mcg Zinc 3 mg 3 mg 3 mg Other Total Amino Acid 110 g 110 g 104 g Total Amino Acid/kg 0.92 g/kg 0.92 g/kg 0.89 g/kg Glucose Infusion Rate 1.28 mg/kg/min 1.28 mg/kg/min 0.93 mg/kg/min Osmolarity 1,357.47 1,357.47 990.95 Volume 2,000 mL 2,000 mL 2,400 mL Rate 83.3 mL/hr 83.3 mL/hr 100 mL/hr Dosing Weight 119.7 kg 119.7 kg 116.5 kg Infusion Site Central Central Central Total Multi-vitamins 10 mL 10 mL 10 mL Assessment: Lab Results Component Value Date NA 136 03/31/2024 K 4.7 03/31/2024 CL 100 03/31/2024 CO2 29 03/31/2024 BUN 8 (L) 03/31/2024 CREATININE 0.64 (L) 03/31/2024 ESTGFR 116 03/31/2024 MAGNESIUM 0.93 03/31/2024 CALCIUM 8.6 03/31/2024 PHOS 3.6 03/31/2024 AST 10 03/29/2024 ALT 8 03/29/2024 ALKPHOS 66 03/29/2024 BILITOT 0.2 03/29/2024 BILIDIR 0.1 03/29/2024 TRIG 91 03/29/2024 HA1C 8.9 (H) 03/02/2024 Lab Results Component Value Date POCGLU 164 03/31/2024 POCGLU 217 (H) 03/31/2024 POCGLU 196 03/30/2024 POCGLU 169 03/30/2024 POCGLU 174 03/30/2024 POCGLU 184 03/30/2024 Patient Lines/Drains/Airways Status Active Nutritional LDAs Name Placement date Placement time Site Days PICC Line 03/26/24 1610 Triple Lumen 5 Fr basilic vein (medial side of arm), right 03/26/24 1610 --5 Drain/Device Site 03/25/24 1036 anterior collapsible closed device 03/25/24 1036 -- 6 Oxygen Therapy / Airway Device: None (Room air) Last Bowel Movement: 03/30/24 Intake/Output Summary (Last 24 hours) at 03/31/2024 1042 Last data filed at 03/31/2024 0642 Gross per 24 hour Intake 2530 ml Output 819 ml Net 1711 ml Relevant medications: insulin glargine, insulin lispro, Zenpep 20 x2 TID, protonix, miralax, pericolace, reglan, others reviewed Anthropometrics: Admit Weight: 116.48 kg Estimated body mass index is 33.88 kg/m?? as calculated from the following: Height as of 03/25/24: 188 cm (6' 2). Weight as of this encounter: 119.7 kg (263 lb 14.3 oz). [place] Body Weight (IBW) (kg): 86.36 Wt Readings from Last 10 Encounters: 03/30/24 119.7 kg (263 lb 14.3 oz) 03/25/24 116.1 kg (256 lb) 03/17/24 119.7 kg (263 lb 14.4 oz) 03/07/24 (!) 138.6 kg (305 lb 8.9 oz) 02/03/24 131.5 kg (289 lb 12.8 oz) 01/24/23 125.7 kg (277 lb 1.6 oz) 01/06/23 124.3 kg (274 lb) 12/25/22 124.6 kg (274 lb 11.2 oz) 12/12/21 130.6 kg (288 lb) 12/22/18 (!) 139.5 kg (307 lb 9.6 oz) Patient Vitals for the past 168 hrs: Weight 03/30/24 0734 119.7 kg (263 lb 14.3 oz) 03/24/24 2114 116.5 kg (256 lb 12.8 oz) Weight Source: Standing Scale Estimated / Assessed Needs: Kcal / K - 2592 Kcal (25 Kcal/Kg - 30 Kcal/Kg) IBW Estimated Protein Needs: 104 g - 130 g (1.2 g/Kg - 1.5 g/Kg) IBW Nutrition intake and intake history / interview: 03/31: PN continues w/ diet advanced to Carb Control lvl 2. Will keep PN calories the same, meets ~85% of needs. Increasing insulin per Endo rec, 1:3.6 I:C. 03/30: Lytes improved and no replacements required yesterday. Increasing PN calories toward goal, adjusting I:C per endo and reducing volume to 2L given NG clamped. Updated standing scale weight collected by RN. 03/29: Per discussion with team, plan to continue PN. Increasing caloric support in step-barahona fashion toward goal. Adding insulin to PN per Endo recs. Increasing K and Phos given signs of refeeding and continued need for repletion outside of PN. Adjusting Cl:Acetate ratio. Pt with 1.75L NG output x 24 hrs, plan for clamp trial today per team. Continuing current TPN volume. 03/27: Consult received for TPN. Electrolytes WNL on AM labs. Initial PN ordered to provide ~ 50% estimated kcal needs and 100% protein needs. 03/26: Consult received for TPN. TPN is not safe to start at this time d/t electrolyte abnormalitiesand hyperglycemia iso DKA. To start PN, BG <200, phos >2 and K >3. Pt with 11.7% weight loss in 2 months. Since Whipple procedure 03/01/24, reports eating mashed up foods 2-3 times/day (~1/2 cup portion) plus one Ensure ONS/day. Pt very fatigued during visit; wished to rest. Nutrition Focused Physical Exam: Performed (03/26/24 KL) . Subcutaneous Fat Loss Orbital region: Mild Upper arm region (triceps/biceps): Not assessed Thoracic and Lumbar regions (ribs, lower back, and maxillary line): Not assessed Lean Muscle Loss Moravian region (temporalis muscle): Mild Clavicle bone region (pectoralis major): Mild Dorsal hand (interosseous muscle): Not assessed Shoulder (deltoid): Not assessed Scapular bone region (latissimus dorsi, trapezius muscles): Not assessed Thigh region (quadriceps muscle): None present Posterior calf region (gastrocnemius muscle): None present Fluid Accumulation Fluid Accumulation: Not assessed Malnutrition Diagnosis: Identified: less than or equal to 50% of estimated energy requirement for greater than or equal to 5 days, greater than 7.5% weight loss in 3 months, and Mild Lean Muscle Loss is consistent with Severe protein-calorie malnutrition in the setting of acute illness or injury (Bernard et al, JPEN J Parenteral Enteral Nutr. 2011; 36(3): 273-83) Nutrition to continue to follow up while inpatient Alma Dasilva RD * Plan of Care - Bernard Ritchie RN - 03/31/2024 6:12 AM EDT OUTCOME EVALUATION NOTE: OUTCOME SUMMARY: Patient A&Ox4, VSS on RA. Denies nausea/vomiting, CP, SOB. Pain controlled w/ scheduled medications, see NOV. Dressings to RLE + midline abdomen CDI. Patient voiding to bathroom w/ hands off supervision. LBM 03/30. Pt refusing scheduled tylenol throughout shift. TPN continues to infuse without delay. PLAN MOVING FORWARD: Pain control Mobilize D/C planning INDIVIDUALIZED FALL PREVENTION INTERVENTIONS: Patient-specific fall risk factors per assessment: [current deficits]: Hospital environment, Pain, Medications. Assistance [level of assistance required for transfers and ambulation]: Supervision. Supervision [direct monitoring required during toileting and ADLs]: Supervision. Surveillance [continuous indirect monitoring]: Hourly rounding, Masimo, Nursing knowledge exchange,Call ibarra within reach, Bed alarm. Bernard Ritchie RN * Consult Note - Neena Proctor MD - 03/30/2024 6:20 PM EDT INFECTIOUS DISEASE CONSULTATION NOTE Reason for Consult: 48/M s/p Whipple procedure now with peripancreatic abscess growing multiple gram neg, pos and yeast Consulting Service: Surg onc Consulting Attending: Rudi Hernandez MD Admission Date: 03/24/2024 History of Present Illness: Pt is a 48 y.o. 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 History obtained from patient and chart review. Patient was recently discharged about 2 weeks ago from his Whipple procedure. He states that he hashad progressive fatigue since discharge. He reports feeling dizzy as well as having shortness of breath on exertion. He takes his blood pressure at home and noted that his blood pressure was low. He denied abdominal pain, however he noted a small area of dehiscence on his midline incision that was draining serous fluid. He was able to tolerate p.o. intake, however the day of admission he had a large volume emesis. He denied having chest pain, fever, chills on admission. He had initially presented to [facility], but was subsequently transferred to [facility] for further care. On admission, he was afebrile and hemodynamically stable. WBC 9K. A CT abdomen pelvis showed multiloculated peripancreatic collections in the region of the pancreaticojejunostomy containing fluid andextraluminal air measuring up to 5.4 cm. He had an IR drain placed on 03/25 in peripancreatic abscess. 10 cc of purulent fluid was aspirated and fluid was sent for cultures and Gram stain. Cultures are growing Prevotella, strep milleri, rareyeast, GPC, GNR, GPR. He is currently on ceftriaxone, metronidazole, fluconazole. On evaluation, patient reports doing well. He has an NG tube in place as he has not been able to tolerate as much p.o. intake. His partner at bedside states that he is looking much better from admission. Patient has a penicillin allergy documented in the chart, however patient reports that he was only allergic to penicillin as a child. He states that he had a rash. He reports tolerating amoxicillin with no issues. Review of Systems: Pertinent positives and negatives noted in HPI. 14 point ROS otherwise negative except noted in HPI. Past Medical History: Past Medical History: Diagnosis Date CKD (chronic kidney disease) stage 3, GFR 30-59 ml/min 01/31/2011 Obesity 01/31/2011 Past Surgical History: Past Surgical History: Procedure Laterality Date CT GUIDED DRAIN PANCREATIC/PERIPANCREATIC 03/25/2024 CT Guided Drain Pancreatic/Peripancreatic Joe Quintero, [facility] RAD CT SCAN IR BIOPSY LIVER PERCUTANEOUS - NON-FOCAL PARENCHYMA 01/07/2023 IR Biopsy Liver Percutaneous 01/07/2023 Juan Wright MD [facility] INTERVENTIONL RAD PRO PART REMV PANC, PROX+REMV DUOD+ANAST N/A 03/01/2024 @CHAKA PROCEDURE (WRVU 52.84) performed by Rudi Hernandez MD at [facility] MAIN OR PRO TRANSFER SKIN PEDICLE FLAP N/A 03/01/2024 TRANSFER, INTERMEDIATE, ANY PEDICLE FLAP, ANY LOCATION (WRVU 4.77) performed by Rudi Hernandez MD at [facility] MAIN OR Medications: Scheduled Meds: acetaminophen 1,000 mg Intravenous Q8H MIRTA metoclopramide 10 mg Intravenous 4 Times Daily AC & HS fluconazole 400 mg Intravenous Q24H gabapentin 600 mg Oral TID pantoprazole EC 40 mg Oral Daily insulin lispro 1-6 Units Subcutaneous Q4H MIRTA citalopram 40 mg Oral Daily insulin glargine (Lantus;Semglee) (100 unit/mL) subcutaneous injection 10 Units Subcutaneous Daily sodium chloride 0.9 % (flush) 5 mL Intravenous BID sodium chloride 0.9 % (flush) 5 mL Intravenous BID heparin (porcine) 5,000 Units Subcutaneous Q8H MIRTA senna-docusate 2 tablet Oral BID polyethylene glycoL (MIRALAX) oral powder 17 g Oral Daily cefTRIAXone 1 g Intravenous Q24H metroNIDAZOLE 500 mg Intravenous Q8H Continuous Infusions: Adult TPN Adult TPN 100 mL/hr at 03/29/24 1750 PRN Meds:.gabapentin, glucose 40% oral geL OR dextrose OR glucagon, sodium chloride 0.9 % (flush), lidocaine, sodium chloride 0.9 % (flush), lidocaine, ondansetron ODT OR ondansetron Allergies/Adverse drug reactions: Allergies Allergen Reactions Penicillins Rash Family History: Family History No data available Social History: Social History Tobacco Use Smoking status: Never Smokeless tobacco: Never Vaping Use Vaping status: Never Used Substance Use Topics Alcohol use: Not Currently Drug use: Not Currently Social History Social History Narrative Not on file Physical Exam: Last value Range last 24 hrs Temperature Temp: 36.9 ??C (98.4 ??F) Temp: [36.4 ??C (97.5 ??F)-36.9 ??C (98.4 ??F)] Heart Rate Heart Rate: 68 Heart Rate: [63-79] Blood Pressure BP: (!) 133/91 BP: (119-153)/(84-98) Respiratory Rate Resp: 18 Resp: [18] SpO2 SpO2: 96 % SpO2: [93 %-97 %] General: no acute distress Head: normocephalic, atraumatic EENT: No conjunctival petechiae Cardiovascular: RRR, no murmur, rubs, or gallops Pulmonary: Lungs clear to auscultation bilaterally; no wheezing, rhonchi, or rales Abdomen: Slightly tender, BASIA drain in place Ext: No deformity Skin: No rash on visible skin Neuro: A&O, moves all 4 extremities spontaneously Psych: Euthymic, pleasant I have reviewed the pertinent laboratory, microbiology, and diagnostic/radiology/procedure results: Recent Labs 03/29/24 0430 03/28/24 0030 03/27/24 0014 WBC 6.5 5.4 5.4 HGB 12.0* 11.5* 12.0* HCT 36.6* 34.8* 36.7* PLATELET 152 185 215 Recent Labs 03/30/24 0600 03/29/24 0430 03/28/24 1730 NA 139 136 139 K 4.0 3.3* 3.2* CL 100 95* 100 CO2 31 31 31 BUN 7* 5* 4* CREATININE 0.59* 0.54* 0.55* Recent Labs 03/29/24 0430 AST 10 ALT 8 ALKPHOS 66 BILITOT 0.2 BILIDIR 0.1 No results for input(s): SEDRATE in the last 168 hours. No results for input(s): CRP in the last 168 hours. Microbiology: 03/25 abscess culture: Prevotella, strep milleri I, yeast, GNO, GPO Antimicrobials: Ceftriaxone 03/24- Metronidazole 03/24- Fluconazole 03/29- Imaging/diagnostics: CTAP 03/24 IMPRESSION 1. Status post Whipple. Multiloculated peripancreatic collections in the region of the pancreaticojejunostomy containing fluid and extraluminal air measuring up to 5.4 cm. Differential includes anastomotic leak and/or abscess. 2. Pneumobilia with dilated extrahepatic biliary duct with transition point at the anastomosis, possibly due to postsurgical edema. 3. 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 No definite thrombus. 4. Skin dehiscence at the proximal laparotomy incision. 03/25 IR Air and fluid containing lobulated collection in the operative bed, as on prior CT. Placement of a 10.2-Fr drainage catheter into collection. 10 cc of saniopurulent fluid aspirated; samples sent for gram stain / culture and body-fluid amylase. Final CT images showed collapse of the collection. Impression: Charles Nick is a 48 y.o. 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 CT imaging shows peripancreatic fluid collection as well as possible leak. Fluid amylase well over thousand, which is consistent with leak. Cultures are growing Prevotella, strep milleri, yeast, as well as gram-positive and gram-negative organisms. Would recommend antimicrobial therapy until drain removal/resolution of abscess. Patient reports taking amoxicillin with no issues, so can transition to a penicillin-based regimen. RECOMMENDATIONS: -Would continue ceftriaxone (increased to 2 g every 24 hours), fluconazole (increased to 600 mg), and metronidazole while patient is not reliably taking PO -When patient is able to tolerate p.o. intake, would recommend amox-clav 1 g 3 times daily (i.e. 2,500mg/125mg Augmentin tablets 3 times daily) and fluconazole 600 mg daily until drain removal/resolution of abscess -The patient should trial this high-dose amox-clav PRIOR to discharge to ensure tolerates--this cancause significant nausea which in his situation may be an issue -Consider fistulogram to evaluate fistula -At least weekly CBCD, CMP while on IV antimicrobial therapy -No need for ID follow-up as outpatient -Rest of care per primary team Patient discussed with ID attending Dr. Proctor. Thank you for the consult. Please do not hesitate to page with any questions or concerns. Please page ID Red team (pager [phone]) with questions or concerns. Melisa Haney MD, MPH Fellow, Infectious Disease Pager: [phone] Epic Chat 03/30/2024 ID ATTENDING I have seen the patient, reviewed the chart as well as the documentation as written by Dr. Haney. The assessment and plan were formulated in discussion with me and I agree with them as documented.I would add/modify: Peripancreatic fluid collection, multiple vs. Lobulated, now s/p IR drain placement on 03/25, afebrile, normal WBC at this point after 5-6 days on effective therapy. Polymicrobial infection. He has used amoxicillin in the past without problems so his documented allergy can be removed. Ideally would t ransition to an oral regimen for him, but has had nausea and just had NGT removed, so would wait until feeling ready to take PO and in meantime continue current IV regimen. The high-dose amox-clav regimen can be difficult to tolerate from nausea standpoint so he should be trialed on this prior to discharge to ensure tolerates. If not, we have other options to consider and can re-engage. Recommendincreasing fluconazole to 600mg daily given size. He should continue antibiotics until the collection(s) are resolved. Given possible multiple or loculated vs. Lobulated collection with only [address], I would advocate CT scan for re-imaging in ~2 weeks versus drain check only. If surgery team comfortable following/managing outpatient, that is reasonable, or ID can assist if preferred. Neena Proctor MD Infectious Diseases * Plan of Care - Micha Butler RN - 03/30/2024 5:30 PM EDTSummary: Care Plan OUTCOME EVALUATION NOTE: OUTCOME SUMMARY: Patient aox4, ra, vss. BM x2 today. NG removed buy Dr. Hernandez. Patient has no complaints of n/v. CLD,tolerated well. TPN infusing. Scheduled Reglan. Up to toilet to void. No acute events today PLAN MOVING FORWARD: Tranfer to floors, abx therapy, monitor patient INDIVIDUALIZED FALL PREVENTION INTERVENTIONS: Patient-specific fall risk factors per assessment: [current deficits]: multiple lines, gen weakeness Assistance [level of assistance required for transfers and ambulation]: independent/ assist x1 Supervision [direct monitoring required during toileting and ADLs]: standby assist Surveillance [continuous indirect monitoring]: spo2, hr Patient-specific fall prevention interventions for sensory deficits provided, if applicable: [X] N/A CARE PLAN GOAL OUTCOME EVALUATION: Problem: Adult Inpatient Plan of Care Goal: Plan of Care Review 03/30/20241728 by Micha Butler RN Outcome: Ongoing (Interventions Implemented as Appropriate) 03/30/20241727 by Micha Butler RN Outcome: Ongoing (Interventions Implemented as Appropriate) Goal: Patient-Specific Goal (Individualized) 03/30/20241728 by Micha Butler RN Outcome: Ongoing (Interventions Implemented as Appropriate) 03/30/2024 172 by Micha Butler RN Outcome: Ongoing (Interventions Implemented as Appropriate) Goal: Absence of Hospital-Acquired Illness or Injury 03/30/2024 172 by Micha Butler RN Outcome: Ongoing (Interventions Implemented as Appropriate) 03/30/2024 172 by Micha Butler RN Outcome: Ongoing (Interventions Implemented as Appropriate) Goal: Optimal Comfort and Wellbeing 03/30/20241728 by Micha Butler RN Outcome: Ongoing (Interventions Implemented as Appropriate) 03/30/20241727 by Micha Butler RN Outcome: Ongoing (Interventions Implemented as Appropriate) Goal: Readiness for Transition of Care 03/30/20241728 by Micha Butler RN Outcome: Ongoing (Interventions Implemented as Appropriate) 03/30/2024 1728 by Micha Butler RN Outcome: Ongoing (Interventions Implemented as Appropriate) Problem: Fall Injury Risk Goal: Absence of Fall and Fall-Related Injury 03/30/2024 172 by Micha Butler RN Outcome: Ongoing (Interventions Implemented as Appropriate) 03/30/2024 1728 by Micha Butler RN Outcome: Ongoing (Interventions Implemented as Appropriate) Problem: Infection Goal: Absence of Infection Signs and Symptoms 03/30/2024 172 by Micha Butler RN Outcome: Ongoing (Interventions Implemented as Appropriate) 03/30/2024 1728 by Micha Butler RN Outcome: Ongoing (Interventions Implemented as Appropriate) Problem: Parenteral Nutrition Goal: Effective Intravenous Nutrition Therapy Delivery Outcome: Ongoing (Interventions Implemented as Appropriate) Intervention: Optimize Intravenous Nutrition Delivery Flowsheets (Taken 03/30/20241728) Medication Review/Management: infusion titrated Intervention: Optimize Nutrition, Fluid and Electrolyte Intake Flowsheets (Taken 03/30/20241728) Glycemic Management: blood glucose monitored * Care Management - Kimberly Price RN - 03/30/2024 2:12 PM EDT Met with patient, per his request, regarding FMLA. Patient reports that his FMLA is running out this . He is able to reapply for FMLA but wasn't sure of the process to do so. Looped in CM SW regarding FMLA, informed that FMLA paperwork needs to go through the patient's employer. * Consult Note - Dameon Ly RD - 03/30/2024 7:46 AM EDT Images from the original note were not included. Nutrition Progress Note Charles Nick is a 48 y.o. 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 Reason for Assessment: TPN, Follow-up Nutrition Recommendations: Parenteral Nutrition Indications: Impaired absorption or loss of nutrients TPN will provide 1838 kcal as 110 g AA, 220 g dextrose 60 g SMOF lipid in 2 L volume and 37.5mEq/L Na concentration. - Changes: increasing calories, reducing volume, increasing I:C ratio - 50U insulin in PN per endo Daily BMP with Mg and Phos- continue to replete as indicated Weekly LFTs and TG Daily Weights - appreciate updated standing scale wt Pt meets criteria for severe protein calorie malnutrition in the setting of acute illness as outlined below I was able to discuss plan with provider Surg Onc 5012 Dr. Mtz. Current Nutrition Regimen: Active Orders Diet Sips and Chips (Give Meds) Frequency: Effective Now Number of Occurrences: Until Specified TPN Orders: TPN Medication Recent History (Show up to 3 orders; newest on the left. Changes between the two most recent orders are indicated.) Start date and time 03/30/2024 1800 03/29/2024 1800 03/27/2024 1800 Adult TPN [[id number]] Adult TPN [[id number]] Adult TPN [[id number]] Order Status Active Last Dose in Progress Completed Last Admin New Bag at 03/29/2024 1750 by Rosie Gaston RN New Bag at 03/28/2024 1723 by Castro Perea RN Frequency Continuous (TPN) Continuous (TPN) Continuous (TPN) Medications insulin regular human 50 Units 32 Units -- Additives adult multivitamin 10 mL 10 mL 10 mL adult trace elements Zn-Cu-Mn-Se (Tralement) 1 mL 1 mL 1 mL thiamine 100 mg 100 mg -- Electrolytes potassium phosphate 40 mmol 40 mmol 34 mmol potassium chloride 68 mEq 68 mEq -- potassium acetate -- -- 65 mEq sodium chloride 75 mEq 90 mEq 60 mEq sodium acetate -- -- 30 mEq calcium gluconate 14 mEq 14 mEq 14 mEq magnesium sulfate 20 mEq 20 mEq 20 mEq Dextrose dextrose 70% 220 g 160 g 120 g Amino Acids amino acid 15% no.5 (Clinisol) 110 g 104 g 104 g QS Base sterile water 513.78 mL 1,085.91 mL 1,215.43 mL Lipid fat emulsion soy/MCT /olive/fish (SMOFlipid) 20% 20% 65 g 55 g 40 g Energy Contribution Proteins 440 kcal 416 kcal 416 kcal Dextrose 748.03 kcal 544.07 kcal 407.93 kcal Lipids 650 kcal 550 kcal 400 kcal Total 1,838.03 kcal 1,510.07 kcal 1,223.93 kcal Electrolyte Ion Calculated Amount Sodium 75 mEq 90 mEq 90 mEq Potassium 126.67 mEq 126.67 mEq 114.87 mEq Calcium 14 mEq 14 mEq 14 mEq Magnesium 20 mEq 20 mEq 20 mEq Aluminum -- -- -- Phosphate 40 mmol 40 mmol 34 mmol Chloride 143 mEq 158 mEq 60 mEq Acetate 93.13 mEq 88.05 mEq 183.05 mEq Chloride: Acetate Ratio 1.535 1.795 0.33 Trace Elements Total Trace Elements 1 mL 1 mL 1 mL Copper 0.3 mg 0.3 mg 0.3 mg Manganese 55 mcg 55 mcg 55 mcg Selenium 60 mcg 60 mcg 60 mcg Zinc 3 mg 3 mg 3 mg Other Total Amino Acid 110 g 104 g 104 g Total Amino Acid/kg 0.92 g/kg 0.89 g/kg 0.89 g/kg Glucose Infusion Rate 1.28 mg/kg/min 0.93 mg/kg/min 0.72 mg/kg/min Osmolarity 1,357.47 990.95 893.51 Volume 2,000 mL 2,400 mL 2,400 mL Rate 83.3 mL/hr 100 mL/hr 100 mL/hr Dosing Weight 119.7 kg 116.5 kg 116.5 kg Infusion Site Central Central Central Total Multi-vitamins 10 mL 10 mL 10 mL Assessment: Lab Results Component Value Date NA 139 03/30/2024 K 4.0 03/30/2024 CL 100 03/30/2024 CO2 31 03/30/2024 BUN 7 (L) 03/30/2024 CREATININE 0.59 (L) 03/30/2024 ESTGFR 119 03/30/2024 MAGNESIUM 0.93 03/30/2024 CALCIUM 8.6 03/30/2024 PHOS 3.6 03/30/2024 AST 10 03/29/2024 ALT 8 03/29/2024 ALKPHOS 66 03/29/2024 BILITOT 0.2 03/29/2024 BILIDIR 0.1 03/29/2024 TRIG 91 03/29/2024 HA1C 8.9 (H) 03/02/2024 Lab Results Component Value Date POCGLU 166 03/30/2024 POCGLU 184 03/30/2024 POCGLU 212 (H) 03/29/2024 POCGLU 159 03/29/2024 POCGLU 167 03/29/2024 POCGLU 238 (H) 03/29/2024 POCGLU 184 03/29/2024 Patient Lines/Drains/Airways Status Active Nutritional LDAs Name Placement date Placement time Site Days Naso/Oral Tube 03/25/24 0915 right nostril 03/25/24 0915 right nostril 5 PICC Line 03/26/24 1610 Triple Lumen 5 Fr basilic vein (medial side of arm), right 03/26/24 1610 --4 Drain/Device Site 03/25/24 1036 anterior collapsible closed device 03/25/24 1036 -- 5 Oxygen Therapy / Airway Device: None (Room air) Last Bowel Movement: 03/28/24 Intake/Output Summary (Last 24 hours) at 03/30/2024 0746 Last data filed at 03/30/2024 0738 Gross per 24 hour Intake 1871 ml Output 1566 ml Net 305 ml Relevant medications: ceftriaxone, insulin glargine, insulin lispro, flagyl, protonix, miralax, pericolace, reglan, others reviewed Anthropometrics: Admit Weight: 116.48 kg Estimated body mass index is 33.88 kg/m?? as calculated from the following: Height as of 03/25/24: 188 cm (6' 2). Weight as of this encounter: 119.7 kg (263 lb 14.3 oz). [place] Body Weight (IBW) (kg): 86.36 Wt Readings from Last 10 Encounters: 03/30/24 119.7 kg (263 lb 14.3 oz) 03/25/24 116.1 kg (256 lb) 03/17/24 119.7 kg (263 lb 14.4 oz) 03/07/24 (!) 138.6 kg (305 lb 8.9 oz) 02/03/24 131.5 kg (289 lb 12.8 oz) 01/24/23 125.7 kg (277 lb 1.6 oz) 01/06/23 124.3 kg (274 lb) 12/25/22 124.6 kg (274 lb 11.2 oz) 12/12/21 130.6 kg (288 lb) 12/22/18 (!) 139.5 kg (307 lb 9.6 oz) Patient Vitals for the past 168 hrs: Weight 03/30/24 0734 119.7 kg (263 lb 14.3 oz) 03/24/24 2114 116.5 kg (256 lb 12.8 oz) Weight Source: Standing Scale Estimated / Assessed Needs: Kcal / K - 2592 Kcal (25 Kcal/Kg - 30 Kcal/Kg) IBW Estimated Protein Needs: 104 g - 130 g (1.2 g/Kg - 1.5 g/Kg) IBW Nutrition intake and intake history / interview: 03/30: Lytes improved and no replacements required yesterday. Increasing PN calories toward goal, adjusting I:C per endo and reducing volume to 2L given NG clamped. Updated standing scale weight collected by RN. 03/29: Per discussion with team, plan to continue PN. Increasing caloric support in step-barahona fashion toward goal. Adding insulin to PN per Endo recs. Increasing K and Phos given signs of refeeding and continued need for repletion outside of PN. Adjusting Cl:Acetate ratio. Pt with 1.75L NG output x 24 hrs, plan for clamp trial today per team. Continuing current TPN volume. 03/27: Consult received for TPN. Electrolytes WNL on AM labs. Initial PN ordered to provide ~ 50% estimated kcal needs and 100% protein needs. 03/26: Consult received for TPN. TPN is not safe to start at this time d/t electrolyte abnormalitiesand hyperglycemia iso DKA. To start PN, BG <200, phos >2 and K >3. Pt with 11.7% weight loss in 2 months. Since Whipple procedure 03/01/24, reports eating mashed up foods 2-3 times/day (~1/2 cup portion) plus one Ensure ONS/day. Pt very fatigued during visit; wished to rest. Nutrition Focused Physical Exam: Performed (03/26/24 KL) . Subcutaneous Fat Loss Orbital region: Mild Upper arm region (triceps/biceps): Not assessed Thoracic and Lumbar regions (ribs, lower back, and maxillary line): Not assessed Lean Muscle Loss Moravian region (temporalis muscle): Mild Clavicle bone region (pectoralis major): Mild Dorsal hand (interosseous muscle): Not assessed Shoulder (deltoid): Not assessed Scapular bone region (latissimus dorsi, trapezius muscles): Not assessed Thigh region (quadriceps muscle): None present Posterior calf region (gastrocnemius muscle): None present Fluid Accumulation Fluid Accumulation: Not assessed Malnutrition Diagnosis: Identified: less than or equal to 50% of estimated energy requirement for greater than or equal to 5 days, greater than 7.5% weight loss in 3 months, and Mild Lean Muscle Loss is consistent with Severe protein-calorie malnutrition in the setting of acute illness or injury (CHRIS Barrett J Parenteral Enteral Nutr. 2011; 36(3): 273-83) Nutrition to continue to follow up while inpatient Dameon Ly RD * Plan of Care - Anais Santos RN - 03/30/2024 3:30 AM EDT OUTCOME EVALUATION NOTE: OUTCOME SUMMARY: Pt is A&O [address] BS still being monitored and covered as per the order. Still running TPN. BASIA drain continues to drain jhaveri malodorous fluid. No N/V overnight. PLAN MOVING FORWARD: Pt hopeful to remove the NG soon. Ambulate. Continue TPN INDIVIDUALIZED FALL PREVENTION INTERVENTIONS: Patient-specific fall risk factors per assessment: [current deficits]: weakness, IV tubes/wires, tele wires, generally not feeling well Assistance [level of assistance required for transfers and ambulation]: 1 assist with walker Supervision [direct monitoring required during toileting and ADLs]: Eyes on, hands on Surveillance [continuous indirect monitoring]: tele, O2 monitor, close to nursing station Patient-specific fall prevention interventions for sensory deficits provided, if applicable: [X] No CPG GOAL OUTCOME EVALUATION: Problem: Adult Inpatient Plan of Care Goal: Plan of Care Review Outcome: Ongoing (Interventions Implemented as Appropriate) Goal: Patient-Specific Goal (Individualized) Outcome: Ongoing (Interventions Implemented as Appropriate) Goal: Absence of Hospital-Acquired Illness or Injury Outcome: Ongoing (Interventions Implemented as Appropriate) Goal: Optimal Comfort and Wellbeing Outcome: Ongoing (Interventions Implemented as Appropriate) Goal: Readiness for Transition of Care Outcome: Ongoing (Interventions Implemented as Appropriate) Problem: Fall Injury Risk Goal: Absence of Fall and Fall-Related Injury Outcome: Ongoing (Interventions Implemented as Appropriate) Problem: Infection Goal: Absence of Infection Signs and Symptoms Outcome: Ongoing (Interventions Implemented as Appropriate) * Plan of Care - Rosie Gaston RN - 03/29/2024 7:04 PM EDT OUTCOME EVALUATION NOTE: OUTCOME SUMMARY: Patient alert and verbally responsive with no s/s of any distress noted at this time. Patient continues on TPN, PICC line in place, patent and flushing well. Patient had one episode of nausea and vomiting today but other than he has been fine. PLAN MOVING FORWARD: Continue with TPN INDIVIDUALIZED FALL PREVENTION INTERVENTIONS: Patient-specific fall risk factors per assessment: [current deficits]: no Assistance [level of assistance required for transfers and ambulation]: x 1 Supervision [direct monitoring required during toileting and ADLs]: yes Surveillance [continuous indirect monitoring]: no Patient-specific fall prevention interventions for sensory deficits provided, if applicable: [X] Yes CPG GOAL OUTCOME EVALUATION: Problem: Adult Inpatient Plan of Care Goal: Plan of Care Review Outcome: Ongoing (Interventions Implemented as Appropriate) Goal: Patient-Specific Goal (Individualized) Outcome: Ongoing (Interventions Implemented as Appropriate) Goal: Absence of Hospital-Acquired Illness or Injury Outcome: Ongoing (Interventions Implemented as Appropriate) Goal: Optimal Comfort and Wellbeing Outcome: Ongoing (Interventions Implemented as Appropriate) Goal: Readiness for Transition of Care Outcome: Ongoing (Interventions Implemented as Appropriate) Problem: Fall Injury Risk Goal: Absence of Fall and Fall-Related Injury Outcome: Ongoing (Interventions Implemented as Appropriate) Problem: Infection Goal: Absence of Infection Signs and Symptoms Outcome: Ongoing (Interventions Implemented as Appropriate) * Care Management - Zaida Rivera RN - 03/29/2024 4:28 PM EDT OFFICE OF CARE MANAGEMENT PROGRESS NOTE LOS: Hospital Day 5 days Chart reviewed, care reviewed with primary team and at interdisciplinary rounds. Patient continues to meet inpatient level of care related to: perihepatic abscess. Decision Maker: Self Functional status prior to admission: Assistive Equipment (Patient was using a walking stick the last week as his health begin to decline. Prior to that he was independant.) Home Environment: Others in the home: child(denia), adult, pet(s), significant other (Patient live with his SO, a total of 4 children between them, 2 dogs, and 1 cat.). Current Living Arrangements: home/apartment/condo. Accessibility Concerns: Patient lives in a two story home with 2 TANJA.. Current Functional Ability: Assistive Person DME used at home: shower chair, grab bar - toilet, grab bar - tub/shower, other (see comments) (walking stick) DME Needed at Discharge: No Patient is insured through: Primary Insurance: [email or web address] Payor: [facility] / Plan: [facility] PPO / Product Type: *No Product type* / Secondary Insurance: N/A Last Physical Therapy Recommendation: home with home health with to be determined Last Occupational Therapy Recommendation: with Plan for discharge is: Home w/ Services Outpatient Agency/Support Group Needs: Homecare agency Home Health Services: Registered Nurse Transportation: family or friend will provide Barriers to discharge: Discharge planning Plan going forward: NGT in since admission, clamp trial today continue tpn/insulin cont on broad spectrum abx for abscess,[place] [facility] (r,p) Care Management will continue to follow and assist with discharge planning and coordination of care as indicated. Anticipated Date of Discharge: 03/31/2024 Zaida MICHELLE RN * Consult Note - Dameon Ly RD - 03/29/2024 9:22 AM EDT Images from the original note were not included. Nutrition Progress Note Charles Nick is a 48 y.o. 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 Reason for Assessment: TPN, Follow-up Nutrition Recommendations: Parenteral Nutrition Indications: Impaired absorption or loss of nutrients TPN will provide 1510 kcal as 104 g AA, 160 g dextrose 55 g SMOF lipid in 2.4 L volume and 1/4 N/S - Changes: increasing K, phos and calories from lipids and dextrose. Adding 32U insulin per Endo. Adjusted Cl:Ac ratio - 32U insulin in PN Daily BMP with Mg and Phos- continue to replete as indicated Weekly LFTs and TG Daily Weights new wt requested with RN Pt meets criteria for severe protein calorie malnutrition in the setting of acute illness as outlined below I was able to discuss plan with provider Surg Onc [id number] Dr. Mtz. Current Nutrition Regimen: Active Orders Diet Sips and Chips (Give Meds) Frequency: Effective Now Number of Occurrences: Until Specified TPN Orders: TPN Medication Recent History (Show up to 3 orders; newest on the left. Changes between the two most recent orders are indicated.) Start date and time 03/29/2024 1800 03/27/2024 1800 Adult TPN [[id number]] Adult TPN [[id number]] Order Status Active Completed Last Admin New Bag at 03/28/2024 1723 by Castro Perea RN Frequency Continuous (TPN) Continuous (TPN) Medications insulin regular human 32 Units -- Additives adult multivitamin 10 mL 10 mL adult trace elements Zn-Cu-Mn-Se (Tralement) 1 mL 1 mL thiamine 100 mg -- Electrolytes potassium phosphate 40 mmol 34 mmol potassium chloride 68 mEq -- potassium acetate -- 65 mEq sodium chloride 90 mEq 60 mEq sodium acetate -- 30 mEq calcium gluconate 14 mEq 14 mEq magnesium sulfate 20 mEq 20 mEq Dextrose dextrose 70% 160 g 120 g Amino Acids amino acid 15% no.5 (Clinisol) 104 g 104 g QS Base sterile water 1,085.91 mL 1,215.43 mL Lipid fat emulsion soy/MCT /olive/fish (SMOFlipid) 20% 20% 55 g 40 g Energy Contribution Proteins 416 kcal 416 kcal Dextrose 544.07 kcal 407.93 kcal Lipids 550 kcal 400 kcal Total 1,510.07 kcal 1,223.93 kcal Electrolyte Ion Calculated Amount Sodium 90 mEq 90 mEq Potassium 126.67 mEq 114.87 mEq Calcium 14 mEq 14 mEq Magnesium 20 mEq 20 mEq Aluminum -- -- Phosphate 40 mmol 34 mmol Chloride 158 mEq 60 mEq Acetate 88.05 mEq 183.05 mEq Chloride: Acetate Ratio 1.795 0.33 Trace Elements Total Trace Elements 1 mL 1 mL Copper 0.3 mg 0.3 mg Manganese 55 mcg 55 mcg Selenium 60 mcg 60 mcg Zinc 3 mg 3 mg Other Total Amino Acid 104 g 104 g Total Amino Acid/kg 0.89 g/kg 0.89 g/kg Glucose Infusion Rate 0.95 mg/kg/min 0.72 mg/kg/min Osmolarity 990.95 893.51 Volume 2,400 mL 2,400 mL Rate 100 mL/hr 100 mL/hr Dosing Weight 116.5 kg 116.5 kg Infusion Site Central Central Total Multi-vitamins 10 mL 10 mL Assessment: Lab Results Component Value Date NA 136 03/29/2024 K 3.3 (L) 03/29/2024 CL 95 (L) 03/29/2024 CO2 31 03/29/2024 BUN 5 (L) 03/29/2024 CREATININE 0.54 (L) 03/29/2024 ESTGFR 122 03/29/2024 MAGNESIUM 0.87 03/29/2024 CALCIUM 8.5 03/29/2024 PHOS 2.9 03/29/2024 AST 11 03/08/2024 ALT 22 03/08/2024 ALKPHOS 94 03/08/2024 BILITOT 0.4 03/08/2024 HA1C 8.9 (H) 03/02/2024 Lab Results Component Value Date POCGLU 187 03/29/2024 POCGLU 195 03/29/2024 POCGLU 187 03/29/2024 POCGLU 171 03/28/2024 POCGLU 164 03/28/2024 POCGLU 209 (H) 03/28/2024 Patient Lines/Drains/Airways Status Active Nutritional LDAs Name Placement date Placement time Site Days Naso/Oral Tube 03/25/24 0915 right nostril 03/25/24 0915 right nostril 4 PICC Line 03/26/24 1610 Triple Lumen 5 Fr basilic vein (medial side of arm), right 03/26/24 1610 --3 Drain/Device Site 03/25/24 1036 anterior collapsible closed device 03/25/24 1036 -- 4 Oxygen Therapy / Airway Device: None (Room air) Last Bowel Movement: 03/28/24 Intake/Output Summary (Last 24 hours) at 03/29/2024 0928 Last data filed at 03/29/2024 0852 Gross per 24 hour Intake 470 ml Output 2473 ml Net -2003 ml Relevant medications: ceftriaxone, insulin glargine, insulin lispro, flagyl, protonix, miralax, pericolace, Kphos replacement 03/29 per MAR, others reviewed Anthropometrics: Admit Weight: 116.48 kg Estimated body mass index is 32.97 kg/m?? as calculated from the following: Height as of this encounter: 188 cm (6' 2). Weight as of this encounter: 116.5 kg (256 lb 12.8 oz). [place] Body Weight (IBW) (kg): 86.36 Wt Readings from Last 10 Encounters: 03/24/24 116.5 kg (256 lb 12.8 oz) 03/25/24 116.1 kg (256 lb) 03/17/24 119.7 kg (263 lb 14.4 oz) 03/07/24 (!) 138.6 kg (305 lb 8.9 oz) 02/03/24 131.5 kg (289 lb 12.8 oz) 01/24/23 125.7 kg (277 lb 1.6 oz) 01/06/23 124.3 kg (274 lb) 12/25/22 124.6 kg (274 lb 11.2 oz) 12/12/21 130.6 kg (288 lb) 12/22/18 (!) 139.5 kg (307 lb 9.6 oz) Patient Vitals for the past 168 hrs: Weight 03/24/24 2114 116.5 kg (256 lb 12.8 oz) Estimated / Assessed Needs: Kcal / K - 2592 Kcal (25 Kcal/Kg - 30 Kcal/Kg) IBW Estimated Protein Needs: 104 g - 130 g (1.2 g/Kg - 1.5 g/Kg) IBW Nutrition intake and intake history / interview: 03/29: Per discussion with team, plan to continue PN. Increasing caloric support in step-barahona fashion toward goal. Adding insulin to PN per Endo recs. Increasing K and Phos given signs of refeeding and continued need for repletion outside of PN. Adjusting Cl:Acetate ratio. Pt with 1.75L NG output x 24 hrs, plan for clamp trial today per team. Continuing current TPN volume. 03/27: Consult received for TPN. Electrolytes WNL on AM labs. Initial PN ordered to provide ~ 50% estimated kcal needs and 100% protein needs. 03/26: Consult received for TPN. TPN is not safe to start at this time d/t electrolyte abnormalitiesand hyperglycemia iso DKA. To start PN, BG <200, phos >2 and K >3. Pt with 11.7% weight loss in 2 months. Since Whipple procedure 03/01/24, reports eating mashed up foods 2-3 times/day (~1/2 cup portion) plus one Ensure ONS/day. Pt very fatigued during visit; wished to rest. Nutrition Focused Physical Exam: Performed (03/26/24 KL) . Subcutaneous Fat Loss Orbital region: Mild Upper arm region (triceps/biceps): Not assessed Thoracic and Lumbar regions (ribs, lower back, and maxillary line): Not assessed Lean Muscle Loss Moravian region (temporalis muscle): Mild Clavicle bone region (pectoralis major): Mild Dorsal hand (interosseous muscle): Not assessed Shoulder (deltoid): Not assessed Scapular bone region (latissimus dorsi, trapezius muscles): Not assessed Thigh region (quadriceps muscle): None present Posterior calf region (gastrocnemius muscle): None present Fluid Accumulation Fluid Accumulation: Not assessed Malnutrition Diagnosis: Identified: less than or equal to 50% of estimated energy requirement for greater than or equal to 5 days, greater than 7.5% weight loss in 3 months, and Mild Lean Muscle Loss is consistent with Severe protein-calorie malnutrition in the setting of acute illness or injury (CHRIS Barrett J Parenteral Enteral Nutr. 2011; 36(3): 273-83) Nutrition to continue to follow up while inpatient Dameon Ly RD * Plan of Care - Anais Santos RN - 03/29/2024 4:41 AM EDT OUTCOME EVALUATION NOTE: OUTCOME SUMMARY: Pt is A&O 4 VSS. Having some nausea w/o vomiting. NG in place. BS still being monitored. Still running TPN. BASIA drain continues to drain jhaveri malodorous fluid PLAN MOVING FORWARD: Monitor nausea, continue to monitor drain output, discharge planning as appropriate INDIVIDUALIZED FALL PREVENTION INTERVENTIONS: Patient-specific fall risk factors per assessment: [current deficits]: weakness, IV tubes/wires, tele wires, generally not feeling well Assistance [level of assistance required for transfers and ambulation]: 1 assist with walker Supervision [direct monitoring required during toileting and ADLs]: Eyes on, hands on Surveillance [continuous indirect monitoring]: tele, O2 monitor, close to nursing station Patient-specific fall prevention interventions for sensory deficits provided, if applicable: [X] No CPG GOAL OUTCOME EVALUATION: Problem: Adult Inpatient Plan of Care Goal: Plan of Care Review Outcome: Ongoing (Interventions Implemented as Appropriate) Goal: Patient-Specific Goal (Individualized) Outcome: Ongoing (Interventions Implemented as Appropriate) Goal: Absence of Hospital-Acquired Illness or Injury Outcome: Ongoing (Interventions Implemented as Appropriate) Goal: Optimal Comfort and Wellbeing Outcome: Ongoing (Interventions Implemented as Appropriate) Goal: Readiness for Transition of Care Outcome: Ongoing (Interventions Implemented as Appropriate) Problem: Fall Injury Risk Goal: Absence of Fall and Fall-Related Injury Outcome: Ongoing (Interventions Implemented as Appropriate) Problem: Infection Goal: Absence of Infection Signs and Symptoms Outcome: Ongoing (Interventions Implemented as Appropriate) * Plan of Care - Castro Perea RN - 03/28/2024 6:14 PM EDT OUTCOME EVALUATION NOTE: OUTCOME SUMMARY: Pt A&O x4. VSS. Ambulated with 1 assist and walker. NSR on tele- see scanned docs. Pt continueson TPN. NGT in place and patent. Bs elevated, corrected per procotol. Call ibarra within reach. PLAN MOVING FORWARD: Discharge planning as appropriate INDIVIDUALIZED FALL PREVENTION INTERVENTIONS: Patient-specific fall risk factors per assessment: [current deficits]: O2 monitor, weakness, IV tubes/wires, tele wires, unfamiliar environment Assistance [level of assistance required for transfers and ambulation]: 1 assist with walker Supervision [direct monitoring required during toileting and ADLs]: Eyes on, hands on Surveillance [continuous indirect monitoring]: O2 monitor, purposeful rounding, telemetry Patient-specific fall prevention interventions for sensory deficits provided, if applicable: lighting adjusted for specific tasks/activities, nonskid socks/shoes on, bed in lowest/locked position CARE PLAN GOAL OUTCOME EVALUATION: Ongoing. * Plan of Care - Sterling Portillo RN - 03/28/2024 4:34 AM EDTSummary: Care Plan Summary OUTCOME EVALUATION NOTE: OUTCOME SUMMARY: Pt A&Ox4, VSS on RA. Pt received 60 mEq+ PO potassium earlier in the night for a potassium of 3.1. Pt had 1x episode of mild nausea with no dry heaving that resolved with 1x dose 4mg IVP zofran. Pt got 1x dose of PRN gabapentin to assist with sleeping. Pt had suppository ordered due to constipation. Pt asked for suppository to be given in the following morning to sleep undisturbed. PLAN MOVING FORWARD: Pain control, mobilize, continue TPN, suppository. INDIVIDUALIZED FALL PREVENTION INTERVENTIONS: Patient-specific fall risk factors per assessment: [current deficits]: Baseline neuropathy, generalized weakness secondary to malnutrition. Assistance [level of assistance required for transfers and ambulation]: 1x assist with walker. Supervision [direct monitoring required during toileting and ADLs]: Eyes on, hands on. Surveillance [continuous indirect monitoring]: [place], apnea monitoring, SpO2 monitoring, purposeful rounding Patient-specific fall prevention interventions for sensory deficits provided, if applicable: [X] N/A CPG GOAL OUTCOME EVALUATION: Problem: Adult Inpatient Plan of Care Goal: Plan of Care Review Outcome: Ongoing (Interventions Implemented as Appropriate) Goal: Patient-Specific Goal (Individualized) Outcome: Ongoing (Interventions Implemented as Appropriate) Goal: Absence of Hospital-Acquired Illness or Injury Outcome: Ongoing (Interventions Implemented as Appropriate) Goal: Optimal Comfort and Wellbeing Outcome: Ongoing (Interventions Implemented as Appropriate) Goal: Readiness for Transition of Care Outcome: Ongoing (Interventions Implemented as Appropriate) Problem: Fall Injury Risk Goal: Absence of Fall and Fall-Related Injury Outcome: Ongoing (Interventions Implemented as Appropriate) Problem: Infection Goal: Absence of Infection Signs and Symptoms Outcome: Ongoing (Interventions Implemented as Appropriate) * Plan of Care - Charles Dent RN - 03/27/2024 6:18 PM EDT OUTCOME EVALUATION NOTE: OUTCOME SUMMARY: Patient A/Ox4 throughout shift. Intermittent headache managed with scheduled IV Tylenol. VSS on RA.Pt verbalized frustration and doubt about his situation in the AM, pt reassured by RN. Team notified and asked to come to bedside to discuss with patient, team visited patient at bedside in evening. BASIA drain continues to have vu drainage. TPN started. Pt stood at bedside with FWW. PLAN MOVING FORWARD: Manage pain Reassure patient NGT to LIWS * Consult Note - Dameon Ly, RD - 03/27/2024 7:36 AM EDT Images from the original note were not included. Nutrition Consult Note Charles Nick is a 48 y.o. 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 Reason for Assessment: TPN Nutrition Recommendations: Parenteral Nutrition Indications: Impaired absorption or loss of nutrients TPN will provide 1224 kcal as 104 g AA, 120 g dextrose 40 g SMOF lipid in 2.4 L volume and 1/4 N/S Daily BMP with Mg and Phos- continue to replete as indicated Weekly LFTs and TG Daily Weights Pt meets criteria for severe protein calorie malnutrition in the setting of acute illness as outlined below I was able to discuss plan with provider Surg Onc 5012 Dr. Hyde. Current Nutrition Regimen: Active Orders Diet Sips and Chips (Give Meds) Frequency: Effective Now Number of Occurrences: Until Specified TPN Orders: TPN Medication Recent History (Show up to 3 orders; newest on the left.) Start date and time 03/27/2024 1800 Adult TPN [[id number]] Order Status Active Frequency Continuous (TPN) Additives adult multivitamin 10 mL adult trace elements Zn-Cu-Mn-Se (Tralement) 1 mL Electrolytes potassium phosphate 34 mmol potassium acetate 65 mEq sodium chloride 60 mEq sodium acetate 30 mEq calcium gluconate 14 mEq magnesium sulfate 20 mEq Dextrose dextrose 70% 120 g Amino Acids amino acid 15% no.5 (Clinisol) 104 g QS Base sterile water 1,215.43 mL Lipid fat emulsion soy/MCT /olive/fish (SMOFlipid) 20% 20% 40 g Energy Contribution Proteins 416 kcal Dextrose 407.93 kcal Lipids 400 kcal Total 1,223.93 kcal Electrolyte Ion Calculated Amount Sodium 90 mEq Potassium 114.87 mEq Calcium 14 mEq Magnesium 20 mEq Aluminum -- Phosphate 34 mmol Chloride 60 mEq Acetate 183.05 mEq Chloride: Acetate Ratio 0.33 Trace Elements Total Trace Elements 1 mL Copper 0.3 mg Manganese 55 mcg Selenium 60 mcg Zinc 3 mg Other Total Amino Acid 104 g Total Amino Acid/kg 0.89 g/kg Glucose Infusion Rate 0.72 mg/kg/min Osmolarity 893.51 Volume 2,400 mL Rate 100 mL/hr Dosing Weight 116.5 kg Infusion Site Central Total Multi-vitamins 10 mL Assessment: Lab Results Component Value Date NA 142 03/27/2024 K 3.6 03/27/2024 CL 109 (H) 03/27/2024 CO2 24 03/27/2024 BUN 3 (L) 03/27/2024 CREATININE 0.70 (L) 03/27/2024 ESTGFR 113 03/27/2024 MAGNESIUM 0.78 03/27/2024 CALCIUM 8.5 03/27/2024 PHOS 2.8 03/27/2024 AST 11 03/08/2024 ALT 22 03/08/2024 ALKPHOS 94 03/08/2024 BILITOT 0.4 03/08/2024 HA1C 8.9 (H) 03/02/2024 Lab Results Component Value Date POCGLU 156 03/27/2024 POCGLU 136 03/27/2024 POCGLU 128 03/26/2024 POCGLU 144 03/26/2024 POCGLU 126 03/26/2024 POCGLU 155 03/26/2024 POCGLU 180 03/26/2024 POCGLU 240 (H) 03/26/2024 POCGLU 197 03/26/2024 Patient Lines/Drains/Airways Status Active Nutritional LDAs Name Placement date Placement time Site Days Naso/Oral Tube 03/25/24914 right nostril 03/25/24 0915 right nostril 2 PIV 03/07/24 1725 20 gauge;1.75 in length cephalic vein (lateral side of arm), left 03/07/24 1725 -- 20 PICC Line 03/26/24 1610 Triple Lumen 5 Fr basilic vein (medial side of arm), right 03/26/24 1610 --1 Drain/Device Site 03/25/24 1036 anterior collapsible closed device 03/25/24 1036 -- 2 Oxygen Therapy / Airway Device: None (Room air) Last Bowel Movement: 03/20/24 Intake/Output Summary (Last 24 hours) at 03/27/2024 0740 Last data filed at 03/27/2024 0500 Gross per 24 hour Intake 4004.96 ml Output 3125 ml Net 879.96 ml Relevant medications: ceftriaxone, insulin glargine, insulin lispro, flagyl, protonix, miralax, pericolace, LR @ 100mL/hr, 2g Mag Sulfate + 23.55mEqKCl from IVF + 30mmol Phos + 104mEqKCl replaced yesterday. Anthropometrics: Admit Weight: 116.48 kg Estimated body mass index is 32.97 kg/m?? as calculated from the following: Height as of this encounter: 188 cm (6' 2). Weight as of this encounter: 116.5 kg (256 lb 12.8 oz). [place] Body Weight (IBW) (kg): 86.36 Wt Readings from Last 10 Encounters: 03/24/24 116.5 kg (256 lb 12.8 oz) 03/25/24 116.1 kg (256 lb) 03/17/24 119.7 kg (263 lb 14.4 oz) 03/07/24 (!) 138.6 kg (305 lb 8.9 oz) 02/03/24 131.5 kg (289 lb 12.8 oz) 01/24/23 125.7 kg (277 lb 1.6 oz) 01/06/23 124.3 kg (274 lb) 12/25/22 124.6 kg (274 lb 11.2 oz) 12/12/21 130.6 kg (288 lb) 12/22/18 (!) 139.5 kg (307 lb 9.6 oz) Patient Vitals for the past 168 hrs: Weight 03/24/24 2114 116.5 kg (256 lb 12.8 oz) Estimated / Assessed Needs: Kcal / K - 2592 Kcal (25 Kcal/Kg - 30 Kcal/Kg) IBW Estimated Protein Needs: 104 g - 130 g (1.2 g/Kg - 1.5 g/Kg) IBW Nutrition intake and intake history / interview: 03/27: Consult received for TPN. Electrolytes WNL on AM labs. Initial PN ordered to provide ~ 50% estimated kcal needs and 100% protein needs. 03/26: Consult received for TPN. TPN is not safe to start at this time d/t electrolyte abnormalitiesand hyperglycemia iso DKA. To start PN, BG <200, phos >2 and K >3. Pt with 11.7% weight loss in 2 months. Since Whipple procedure 03/01/24, reports eating mashed up foods 2-3 times/day (~1/2 cup portion) plus one Ensure ONS/day. Pt very fatigued during visit; wished to rest. Nutrition Focused Physical Exam: Performed (03/26/24 ) . Subcutaneous Fat Loss Orbital region: Mild Upper arm region (triceps/biceps): Not assessed Thoracic and Lumbar regions (ribs, lower back, and maxillary line): Not assessed Lean Muscle Loss Moravian region (temporalis muscle): Mild Clavicle bone region (pectoralis major): Mild Dorsal hand (interosseous muscle): Not assessed Shoulder (deltoid): Not assessed Scapular bone region (latissimus dorsi, trapezius muscles): Not assessed Thigh region (quadriceps muscle): None present Posterior calf region (gastrocnemius muscle): None present Fluid Accumulation Fluid Accumulation: Not assessed Malnutrition Diagnosis: Identified: less than or equal to 50% of estimated energy requirement for greater than or equal to 5 days, greater than 7.5% weight loss in 3 months, and Mild Lean Muscle Loss is consistent with Severe protein-calorie malnutrition in the setting of acute illness or injury (Arnold, JPEN J Parenteral Enteral Nutr. 2011; 36(3): 273-83) Nutrition to continue to follow up while inpatient Dameon Ly RD * Plan of Care - Mary Alice Jacobs RN - 03/26/2024 4:12 PM EDT Images from the original note were not included. [facility] [place] [address] [facility] Vascular Access Service Peripherally Inserted Central Catheter (PICC) Teaching Sheet Peripherally inserted central catheters ([id number]) (PICC) are used when you need IV (intravenous) medicines and fluids. A catheter is a small flexible plastic tube. The catheter is put in througha vein under your skin. A vein is a tube inside your body that carries blood from the body to the heart. The catheter is usually put into a vein on the inside of your upper arm. Then it is threaded up this vein and ends in the blood vessel near your heart. The PICC catheter may be used for taking blood for laboratory tests. You may also get IV fluids andmedicines quickly and easily. Having the catheter may keep your arm from being stuck many times with a needle. The catheter will have 1-3 small tails (tubes) coming from your arm where the catheter was put in. Why do I need a PICC line or midline catheter? PICC lines are used for manager hospitality treatments. PICC lines may be used for up to a year. They are often put in to give you IV medicines at home. You may need a PICC catheter because caregivers cannot use smaller veins in your body. Smaller veins may be damaged, or they may have poor blood flow. Catheters are also used in case of emergency when you would need medicines or fluids very quickly. The following are medicines and treatments you may get when you have a PICC line. ?? Antibiotics. These are medicines to prevent infection. ?? Frequent blood sample collection. ?? IV medicines that would make your smaller veins sore or damaged. ?? Receiving IV fluids for a long period of time. ?? Pain medicine. ?? Total Parenteral Nutrition: This is also called TPN. TPN is a special liquid food that goes directly into your veins. ?? Blood ?? Chemotherapy (Medicine for cancer) What are the benefits of having a PICC line put in? Having a PICC line may keep your arm from being stuck many times with a needle to draw blood or start an IV (intravenous catheter) . Through a PICC catheter, you may have blood taken for tests. You may also get IV fluids and medicines quickly and easily. Small veins can be damaged or irritated by certain drugs or nutritional solutions. A PICC line helps to decrease vein irritation from antibiotics, IV pain drugs, or IV cancer drugs. A PICC line can be left in place when you go home. If you go home with a PICC line in place, home care can be set up via the nurse [employer] to help you. What are possible complications of having a PICC line put in? Some possible complications are: bruising, swelling, or infection in the arm with the PICC line mal-positioned catheter (catheter tip in wrong place) occlusion (blocked catheter) mechanical phlebitis (vein irritation) and thrombosis (clot) Your doctor is the person you should talk to if you have questions about what would happen if you do not choose to have a PICC line put in. Your doctor can talk to you about other choices you may have. What should I expect when it is put in? A written consent that gives you're ok to have it put in needs to be signed after you understand that you are going to have a PICC put in, and all your questions about the procedure have been answered to your satisfaction. This is a safety feature that the hospital practices before doing procedures. An experienced nurse who has been through special training and education will be putting this catheter in. The procedure is done in a specially equipped room in Interventional Radiology on the third floor. The PICC nurse will first talk to you about any questions that you may have. The PICC nurse will explain to you what is going to be done before starting. Once you arrive in the procedure room in Interventional Radiology, the PICC nurse will then set up for the procedure. She will unwrap the sterile kit and open the needed supplies. A gown and mask andgloves will be worn while putting it in. An ultrasound machine will be used to help guide the catheter in the right place. This machine uses a handle with sound waves to find the vein. The area on your arm where the catheter will be put in is then numbed with a medicine put under your skin with a tiny needle. The nurse will then put in the catheter using fluoroscopy (a type of x-ray) as a guide. Once the catheter is in your vein, it will be threaded up your arm to the area beforeyour heart. While it is being threaded, you may be asked to turn your head. When the catheter is in, the nurse will place a small dressing on the site along with a little benson which will help keep the catheter in place. After the procedure is done, a radiologist (doctor in x-ray department) will look at your x-ray to make sure that the end of the catheter is in proper position to give your fluids and/or medications. What should I expect in the care of my PICC? A dressing that is specially made to prevent infections will be put on. After this, the dressing will only be changed once a week unless it needs it sooner. If you go home with the catheter in, you may take a shower as long as you keep the site dry. You can do this by wearing a specially fitted PICC protector that will be provided to you before dischargefrom the hospital. The dressing at the site must be kept clean and dry. It is important that you watch for signs of infection at the site. Your healthcare provider should be notified if these occur: Redness Swelling Pus Pain at the site Other reasons to notify your healthcare provider are: Catheter becomes partially or totally removed Unable to infuse medication/fluid Unable to draw back blood from the catheter. This may be an early sign that a clot is forming on the end of the catheter. If this occurs, a medicine called Cathflo may be used to dissolve this clot. Ask the PICC nurse or your doctor, any questions you may have so you feel secure in consenting to having a PICC line. References: Vascular Access Device Selection, Insertion, and Management, [employer] 06/19. A Review of the Efficacy, Safety, Use, and Administration of Cathflo, [employer] 2005 * Consult Note - Maryanne Montelongo, RD - 03/26/2024 11:00 AM EDT Nutrition Consult Note Charles Nick is a 48 y.o. 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 Reason for Assessment: TPN Nutrition Recommendations: Consult received for TPN. TPN is not safe to start at this time d/t electrolyte abnormalities and hyperglycemia iso DKA. To start PN, BG <200, phos >2 and K >3. Team to re-consult to start PN. Pt meets criteria for severe protein calorie malnutrition in the setting of acute illness as outlined below I was able to discuss plan with provider Surg Onc [id number] . Current Nutrition Regimen: Active Orders Diet Sips and Chips (Give Meds) Frequency: Effective Now Number of Occurrences: Until Specified Assessment: Lab Results Component Value Date NA 143 03/26/2024 K 3.4 (L) 03/26/2024 CL 113 (H) 03/26/2024 CO2 21 (L) 03/26/2024 BUN 4 (L) 03/26/2024 CREATININE 0.69 (L) 03/26/2024 ESTGFR 113 03/26/2024 MAGNESIUM 0.87 03/26/2024 CALCIUM 8.7 03/26/2024 PHOS 1.3 (CRIT) 03/26/2024 AST 11 03/08/2024 ALT 22 03/08/2024 ALKPHOS 94 03/08/2024 BILITOT 0.4 03/08/2024 HA1C 8.9 (H) 03/02/2024 Lab Results Component Value Date POCGLU 126 03/26/2024 POCGLU 155 03/26/2024 POCGLU 180 03/26/2024 POCGLU 240 (H) 03/26/2024 POCGLU 197 03/26/2024 POCGLU 226 (H) 03/26/2024 POCGLU 206 (H) 03/26/2024 POCGLU 220 (H) 03/26/2024 POCGLU 321 (H) 03/26/2024 POCGLU 198 03/25/2024 POCGLU 212 (H) 03/25/2024 POCGLU 175 03/25/2024 Patient Lines/Drains/Airways Status Active Nutritional LDAs Name Placement date Placement time Site Days Naso/Oral Tube 03/25/24 0915 right nostril 03/25/24 0915 right nostril 1 PIV 03/07/24 1725 20 gauge;1.75 in length cephalic vein (lateral side of arm), left 03/07/24 1725 -- 19 PIV 03/24/24 2100 20 gauge median cubital vein (antecubital fossa), right 03/24/24 2100 -- 2 Drain/Device Site 03/25/24 1036 anterior collapsible closed device 03/25/24 1036 -- 1 Oxygen Therapy / Airway Device: None (Room air) Last Bowel Movement: 03/20/24 Intake/Output Summary (Last 24 hours) at 03/26/2024 1406 Last data filed at 03/26/2024 1213 Gross per 24 hour Intake 8699.32 ml Output 3285 ml Net 5414.32 ml Relevant medications: D10 in LR w/ Kcl@125ml/hr, insulin drip, protonix, miralax, K and phos repletion Anthropometrics: Admit Weight: 116.48 kg Estimated body mass index is 32.97 kg/m?? as calculated from the following: Height as of this encounter: 188 cm (6' 2). Weight as of this encounter: 116.5 kg (256 lb 12.8 oz). [place] Body Weight (IBW) (kg): 86.36 Wt Readings from Last 10 Encounters: 03/24/24 116.5 kg (256 lb 12.8 oz) 03/25/24 116.1 kg (256 lb) 03/17/24 119.7 kg (263 lb 14.4 oz) 03/07/24 (!) 138.6 kg (305 lb 8.9 oz) 02/03/24 131.5 kg (289 lb 12.8 oz) 01/24/23 125.7 kg (277 lb 1.6 oz) 01/06/23 124.3 kg (274 lb) 12/25/22 124.6 kg (274 lb 11.2 oz) 12/12/21 130.6 kg (288 lb) 12/22/18 (!) 139.5 kg (307 lb 9.6 oz) Patient Vitals for the past 168 hrs: Weight 03/24/24 2114 116.5 kg (256 lb 12.8 oz) Estimated / Assessed Needs: Kcal / K - 2592 Kcal (25 Kcal/Kg - 30 Kcal/Kg) IBW Estimated Protein Needs: 104 g - 130 g (1.2 g/Kg - 1.5 g/Kg) IBW Nutrition intake and intake history / interview: Consult received for TPN. TPN is not safe to startat this time d/t electrolyte abnormalities and hyperglycemia iso DKA. To start PN, BG <200, phos>2 and K >3. Pt with 11.7% weight loss in 2 months. Since Whipple procedure 03/01/24, reports eating mashed up foods 2-3 times/day (~1/2 cup portion) plus one Ensure ONS/day. Pt very fatigued during visit; wished to rest. Nutrition Focused Physical Exam: Performed (03/26/24 KL) . Subcutaneous Fat Loss Orbital region: Mild Upper arm region (triceps/biceps): Not assessed Thoracic and Lumbar regions (ribs, lower back, and maxillary line): Not assessed Lean Muscle Loss Moravian region (temporalis muscle): Mild Clavicle bone region (pectoralis major): Mild Dorsal hand (interosseous muscle): Not assessed Shoulder (deltoid): Not assessed Scapular bone region (latissimus dorsi, trapezius muscles): Not assessed Thigh region (quadriceps muscle): None present Posterior calf region (gastrocnemius muscle): None present Fluid Accumulation Fluid Accumulation: Not assessed Malnutrition Diagnosis: Identified: less than or equal to 50% of estimated energy requirement for greater than or equal to 5 days, greater than 7.5% weight loss in 3 months, and Mild Lean Muscle Loss is consistent with Severe protein-calorie malnutrition in the setting of acute illness or injury (Bernard et al, JPEN J Parenteral Enteral Nutr. 2011; 36(3): 273-83) Nutrition to continue to follow up while inpatient Maryanne Montelongo RD * Plan of Care - Yang Mandel RN - 03/26/2024 10:50 AM EDT Problem: Adult Inpatient Plan of Care Goal: Plan of Care Review Outcome: Ongoing (Interventions Implemented as Appropriate) Goal: Patient-Specific Goal (Individualized) Outcome: Ongoing (Interventions Implemented as Appropriate) Goal: Absence of Hospital-Acquired Illness or Injury Outcome: Ongoing (Interventions Implemented as Appropriate) Goal: Optimal Comfort and Wellbeing Outcome: Ongoing (Interventions Implemented as Appropriate) Goal: Readiness for Transition of Care Outcome: Ongoing (Interventions Implemented as Appropriate) Problem: Fall Injury Risk Goal: Absence of Fall and Fall-Related Injury Outcome: Ongoing (Interventions Implemented as Appropriate) Problem: Infection Goal: Absence of Infection Signs and Symptoms Outcome: Ongoing (Interventions Implemented as Appropriate) * Plan of Care - Rosie Gaston RN - 03/26/2024 8:14 AM EDT OUTCOME EVALUATION NOTE: OUTCOME SUMMARY: Patient is lethargic but verbally responsive. Patient currently under DKA protocol, insulin drip onhold as right now due to hypokalemia. Patient has been receiving K+ runs 5/5 bags given. Patient had a critical phosphate level, potassium phosphate ordered bag is receiving dose 2/2. The patient's mag had to be replaced. NG tube in right nare attached to low suction. NG tube draining and flushing well; dark green fluid observed. Patient experience nausea , PRN zofran given with positive effect. Patient given PRN insulin per sliding scale. Patient has BASIA drain from midline sx site, draining well. Family given update of current status and care that is being provided. Patient was able to void using urinal. Patient denies pain at this time. Will continue with the plan of care. PLAN MOVING FORWARD: Continue to monitor and replace electrolytes as need. Monitor for n/v symptoms Monitor outputs in both drains INDIVIDUALIZED FALL PREVENTION INTERVENTIONS: Patient-specific fall risk factors per assessment: [current deficits]: yes Assistance [level of assistance required for transfers and ambulation]: x 2 with walker Supervision [direct monitoring required during toileting and ADLs]: yes Surveillance [continuous indirect monitoring]: no Patient-specific fall prevention interventions for sensory deficits provided, if applicable: [X] No CPG GOAL OUTCOME EVALUATION: Problem: Adult Inpatient Plan of Care Goal: Plan of Care Review Outcome: Ongoing (Interventions Implemented as Appropriate) Goal: Patient-Specific Goal (Individualized) Outcome: Ongoing (Interventions Implemented as Appropriate) Goal: Absence of Hospital-Acquired Illness or Injury Outcome: Ongoing (Interventions Implemented as Appropriate) Goal: Optimal Comfort and Wellbeing Outcome: Ongoing (Interventions Implemented as Appropriate) Goal: Readiness for Transition of Care Outcome: Ongoing (Interventions Implemented as Appropriate) Problem: Fall Injury Risk Goal: Absence of Fall and Fall-Related Injury Outcome: Ongoing (Interventions Implemented as Appropriate) Problem: Infection Goal: Absence of Infection Signs and Symptoms Outcome: Ongoing (Interventions Implemented as Appropriate) * Plan of Care - Chris Pendleton RN - 03/25/2024 6:21 PM EDT OUTCOME EVALUATION NOTE: OUTCOME SUMMARY: Perc drain done today. NGT to cont low suction. DKA protocol in place. Insulin held, K at 3.0. Neuro intact. NSR to Stach. Denies chest pain. Denies pain. PLAN MOVING FORWARD: CBG Q1 BMP AM K replacement 10 meq IV q2H Hold insulin until K is above or at 3.3 per providers CPAP at night INDIVIDUALIZED FALL PREVENTION INTERVENTIONS: Patient-specific fall risk factors per assessment: [current deficits]: Generalized weakness Assistance [level of assistance required for transfers and ambulation]: Commode/Toilet x1 assistance Supervision [direct monitoring required during toileting and ADLs]: 1 person assistance Surveillance [continuous indirect monitoring]: Telemetry Patient-specific fall prevention interventions for sensory deficits provided, if applicable: [X] N/A CPG GOAL OUTCOME EVALUATION: Problem: Adult Inpatient Plan of Care Goal: Plan of Care Review Outcome: Ongoing (Interventions Implemented as Appropriate) Goal: Patient-Specific Goal (Individualized) Outcome: Ongoing (Interventions Implemented as Appropriate) Goal: Absence of Hospital-Acquired Illness or Injury Outcome: Ongoing (Interventions Implemented as Appropriate) Goal: Optimal Comfort and Wellbeing Outcome: Ongoing (Interventions Implemented as Appropriate) Goal: Readiness for Transition of Care Outcome: Ongoing (Interventions Implemented as Appropriate) Problem: Fall Injury Risk Goal: Absence of Fall and Fall-Related Injury Outcome: Ongoing (Interventions Implemented as Appropriate) Problem: Infection Goal: Absence of Infection Signs and Symptoms Outcome: Ongoing (Interventions Implemented as Appropriate) * Consult Note - Kristen Meza APRN - 03/25/2024 2:49 PM EDT Diabetes Management Team Inpatient Consult Date of Consultation: 03/25/2024 Consult Requested by: Surgery Reason for Consultation: Charles Nick is a 48 y.o. 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 We are being consulted to assist with diabetes management and to provide a review of manager hospitality diabetes care in setting of euglycemic DKA Diabetes History: Charles Nick has had diabetes since . Current outpatient diabetes regimen: Diabetes Provider: PCP Medications: Metformin 1000mg BID, Farxiga 10 mg, Lantus 8 units daily, Monitoring is done fingersticks Most recent A1C: Recent Labs 03/02/24 0430 HA1C 8.9* suggesting an average glucose of 209 mg/dL for the past 6-8 weeks. Typical diet is: not reviewed today Diabetes Complications Status: Eyes: None Kidneys: creatinine 0.62, GFR 117 Feet: + painful-takes gabapentin Sensory: None Autonomic: None Cardiac: None Last urine protein measurement: Lab Results Component Value Date MICROALBUR 108.1 12/12/2021 Last Kidney function: Lab Results Component Value Date CREATININE 0.62 (L) 03/25/2024 Current Hospital Diabetes Care: Medications: Insulin drip per DKA protocol Monitoring: q 1hour Diet: NPO REVIEW OF SYSTEMS: All 12 systems reviewed and negative except as noted per HPI. PMH Past Medical History: Diagnosis Date CKD (chronic kidney disease) stage 3, GFR 30-59 ml/min 01/31/2011 Obesity 01/31/2011 Current Hospital Medications: sodium chloride 0.9 % (flush) 5 mL Intravenous BID sodium chloride 0.9 % (flush) 5 mL Intravenous BID heparin (porcine) 5,000 Units Subcutaneous Q8H [facility] senna-docusate 2 tablet Oral BID polyethylene glycoL (MIRALAX) oral powder 17 g Oral Daily insulin lispro 1-4 Units Subcutaneous Q4H [facility] cefTRIAXone 1 g Intravenous Q24H metroNIDAZOLE 500 mg Intravenous Q8H gabapentin 600 mg Oral TID pantoprazole EC 40 mg Oral Daily Infusions: insulin regular human 0.1 Units/kg/hr (03/25/24 1400) dextrose 10% in lactated ringers with potassium chloride 20 mEq infusion 125 mL/hr (03/25/24 1400) And lactated Ringers 1,000 mL with potassium chloride 20 mEq infusion 125 mL/hr (03/25/24 1400) lactated Ringers 100 mL/hr at 03/25/24 1400 PRN: sodium chloride 0.9 % (flush), lidocaine, insulin regular human AND insulin regular human, glucose 40% oral geL OR dextrose OR glucagon, sodium chloride 0.9 % (flush), lidocaine, acetaminophen, ondansetron ODT OR ondansetron, glucose 40% oral geL OR dextrose OR glucagon Allergy: Allergies Allergen Reactions Penicillins Rash Social history: Social History Tobacco Use Smoking status: Never Smokeless tobacco: Never Vaping Use Vaping status: Never Used Substance Use Topics Alcohol use: Not Currently Drug use: Not Currently Family history: No family history on file. Vitals BP 125/81 (BP Location (NBP): Left arm, Patient Position: Lying) Pulse 91 Temp 37.1 ??C (98.7 ??F) (Temporal) Resp 13 Ht 188 cm (6' 2) Wt 116.5 kg (256 lb 12.8 oz) SpO2 97% BMI 32.97 kg/m?? Physical Exam: Gen: NAD, Laying in bed, appears comfortable, unable to answer questions at this time. Respiratory: breathing non-labored Abd: deferred SKIN: No open areas, bruising appreciated on visible skin Neuro: Grossly non-focal Labs: Lab Results Component Value Date BUN 9 (L) 03/25/2024 CREATININE 0.62 (L) 03/25/2024 GLUCOSE 148 03/25/2024 ESTGFR 117 03/25/2024 Lab Results Component Value Date HA1C 8.9 (H) 03/02/2024 Lab Results Component Value Date MICROALBUR 108.1 12/12/2021 Assessment: Charles Nick is a 48 y.o. 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 Labson admission show anion gap of 21 with BG of 143, BOHB of 6.3 consistent with euglycemic DKA. Patient does take SGLT-2 medication. Last A1C was 8.9% in February, suggesting an average glucose of 209 mg/dL for the 6-8 weeks prior to this lab. Currently has variability of blood glucose levels while hospitalized requiring adjustment of insulin regimen and DM medications. He was started on insulin drip for DKA protocol. Once anion gap has been closed on two checks drip can be switched to regular titratable insulin drip for a period of dose finding or weight based insulin dosing can be used to transition him off drip. Insulin drip must run for 2 hours after long acting insulin is administered and drip should be running at less than 2 units an hour before drip can be discontinued. We will see Mr. Nick in follow up once DKA resolved to assist with glucose management during his admission Plan: 1. Continue insulin drip per protocol until anion gap closed for two checks. Once anion gap is closed transition to titratable drip for a period of dose finding or can consider weight based basal insulin dosing for transition off drip. Insulin drip must run for a minimum or 2 hours after long acting insulin has been administered in addition to glucose being < 200 and drip running at less than 2 units an hour 2. If he is hungry, please add carb ratio 1:10 to be administered in addition to the drip 3. Once drip is discontinued please add moderate correction factor 4. Monitoring: Q1 Discharge Considerations: D/C SGLT-2 medication for Mr. Nick Medications - Outpatient treatment regimen recommendations pending based on the hospital course. Monitoring - continue BG tid ac & hs Diet - low fat/low carb diet Exercise - weight-bearing exercise 30 min/day, as tolerated Thank you for allowing us to provide care for your patient Kristen Meza APRN Endocrinology Diabetes Management Service Pager: [phone] Weekends please page [phone] 80 minute visit was spent in counseling on diabetes and treatment plan, reviewing all glucose and insulin data as well as relevant laboratory results with the patient and in the coordination of care on the inpatient unit. * Initial Assessments - Nimo Wayne RN - 03/25/2024 1:27 PM EDT Office of Care Management Initial Assessment Nimo Wayne RN reviewed record and discussed patient with Care Team. Source of Information: Team, bedside nurse, medical record, and Significant Other (Head Kil[employer] Operator spoke with Jenelle, petra significant other. Patient was sleeping from procedure.) Introduced self/reviewed role; services accepted. Admitted From: [facility] Reason for Hospitalization: peripancreatic fluid collection on CT, s/p Whipple on 03/01. Past medical History: Past Medical History: Diagnosis Date CKD (chronic kidney disease) stage 3, GFR 30-59 ml/min 01/31/2011 Obesity 01/31/2011 Hospitalizations Within the Past 30 Days: previous discharge plan unsuccessful Current Decision-Making Capacity: Self If AD's have not been completed the following surrogate would be surrogate decision maker per [place] surrogate decision making law. (Only good for 180 days) Any patient receiving care in [place] must abide by [place] law. The hierarchy for surrogate decision making is: (a) Patient???s spouse or civil union partner unless there is a divorce proceeding, separation agreement, or restraining order limiting that person???s relationship with the patient. Jenelle Souza, SO [phone] (b) Any adult son or daughter of the patient. (c) Either parent of the patient. (d) Any adult brother or sister of the patient. (e) Any adult grandchild of the patient. (f) Any grandparent of the patient. (g) Any adult aunt, uncle, niece, or nephew of the patient. (h) A close friend of the patient. (i) The agent with financial power of contract attorney or a conservator appointed in accordance with RSA 464-A. (j) The guardian of the patient???s estate. Advance Care Planning: Attempt Cardiopulmonary Resuscitation - Inpatient <no information> -Advanced Directive: No, need to discuss Current Coping/Education/Information Needs: Patient previously declined VNA services at the d/c of his recent admission. SO is a nurse, but is unable to be home to care for him, so is interested in placing a referral to [place]. OSVALDO goinslt placed for caregiver resources in her community in the event he will require someone to monitor him while she is at work. Current Functional Ability: Assistive Person Functional Status Prior to Admission: Assistive Equipment (Patient was using a walking stick the last week as his health begin to decline. Prior to that he was independant.) Prior ADLs & IADLs: Assistance Needed with ADLs & IADLs (Patient was requiring more assistance over the past week and was having some confusion.) Home Environment: Others in the home: child(denia), adult, pet(s), significant other (Patient live with his SO, a total of 4 children between them, 2 dogs, and 1 cat.). Current Living Arrangements: home/apartment/condo. Accessibility Concerns:Patient lives in a two story home with 2 TANJA.. In the last 12 months, was there a time when you were not able to pay the mortgage or rent on time?: No In the past 12 months, how many times have you moved where you were living?: 0 At any time in the past 12 months, were you homeless or living in a correction (including now)?: No In the past 12 months has the [employer], gas, oil, or water [employer] threatened to shut off services in your home?: No Within the past 12 months, you worried that your food would run out before you got the money to buymore.: Never true Within the past 12 months, the food you bought just didn't last and you didn't have money to get more.: Never true Resource / Environmental Concerns: Resource/Environmental Concerns: other (see comments) (Caregiverresources.) Home Accessibility Concerns: stairs to enter home, stairs to access bedroom or bathroom In the past 12 months, has lack of transportation kept you from medical appointments or from getting medications?: No In the past 12 months, has lack of transportation kept you from meetings, work, or from getting things needed for daily living?: No Current DME: shower chair, grab bar - toilet, grab bar - tub/shower, other (see comments) (walking stick) Home Address confirmed as: [address] [phone] Social & Family Supports: All names listed below confirmed with patient as current and correct Extended Emergency Contact Information Primary Emergency Contact: JENELLE SOUZA Address: [address] [address] [facility] Mobile Relation: Life Partner Current Care Provided by: self, spouse/significant other Provides Primary Care For: no one Caregiver if needed: significant other, homecare agency, other (see comments) (SW consulted for caregiver resources.) Quality of Family relationships: helpful, involved, supportive Community Resources being provided currently: none Behavioral Health History: Patient is being treated for anxiety and depression with medication. Patient's SO stated his depression has increased with his condition not improving. Substance Use/Abuse confirmed: Social History Tobacco Use Smoking Status Never Smokeless Tobacco Never In the past year have you used an illegal drug or used a prescription medication for non-medical reasons?: No 0 No problems reported 1-2 Low level 3-5 Moderate level 6-8 Substantial level 9- 10 Severe level In the past year have you had 5 or more drinks a day containing alcohol?: No 0 to 7 points: Low risk 8 to 15 points: Medium risk 16 to 19 points: High risk 20 to 40 points: Addiction likely Other Pertinent/Service Specific Information: none Health/Prescription Coverage: Primary Insurance: [facility] Payor: [facility] / Plan: [facility] PPO / Product Type: *No Product type* / Secondary Insurance: N/A ; Prescription Coverage: Yes Preferred Pharmacy: [facility] [address] [address] [email or web address] [email or web address] - [place], [place] - [address] [address] Status: Patient is a : No Primary Care Provider confirmed: Olga Hoffman, YOCASTA [phone] Patient/Caregiver Goals of Treatment: Return home with SO and VNA services when medically ready. Potential Needs for Transition of Care: home health care Agency Referrals: I have met with the sales representative advertising to: discuss discharge planning needs. provide the [facility], Office of Care Management letter from the Access Rn pertaining to rehab referrals. provide a letter describing our affiliations within the [facility] and educate about their right to choose where referrals are sent. provide a list of Home Health Agencies / Durable Medical Equipment vendors which serve their preferred geographic area. provided patient with [facility] Star Quality Rating handout. They have requested referrals to: [facility]. [address] [place] [address] Note routed to a Door Operator who will communicate referrals to facilities and provide any required information. Transportation: no concerns Transportation Anticipated: family or friend will provide Concerns to be Addressed: discharge planning Assessment: Patient is admitted to Surgical Oncology service for peripancreatic fluid collection onCT, s/p Whipple on 03/01. Plan going forward: IR for drain placement, prn pain management, insulin gtt, repletion of electrolytes, IVF, Medicine consult, nausea management, NGT, IV abx, wound care, and trending labs. Referralto [facility] for VNA services placed. Care Management team will continue to follow and assist with discharge planing and coordination of care as indicated. JACKIE Mcguire, supervisor partial denture department of Care Management Pager [phone] * Consult Note - Crystal Rubio MD - 03/25/2024 12:52 PM EDT Internal Medicine Inpatient Consult Note Reason for Consult: Charles Nick is a 48 y.o. male who we are seeing today at the request of Rudi Hernandez MD for evaluation of possible DKA HPI: Charles Nick is a 48 y.o. 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 The patient had a recent outpatient follow-up on 03/[address] Hernandez, while walking or before his appointment he had a tumble, experienced some wound dehiscence, per the patient. He mentioned feeling very weak, dizzy and short of breath with several episodes of syncope/presyncope. Denied any associated fevers, abdominal pain/chills. He was able to tolerate food up until his arrival to the hospital where he had an episode of bilious vomiting. As he was concerned due to undergoing surgery recently, he decided to report to [facility]. At the outside hospital he was noted to have acidosis, elevated lactate and a fluid collection in the abdomen onCT abdomen pelvis. There was concern for sepsis in setting of intra-abdominal fluid collection. He was started on IV antibiotics. He received IV fluids as well. Subsequently he was transferred to [facility] for management of possible peripancreatic abscess. On arrival to [facility] HR 99, BP 120/85, RR 11, SpO2 97%, afebrile WBC 9, Hb 14, platelets 309 Sodium 137, potassium 3.8, bicarb 11, AG 21 BUN 11, creatinine 0.79 Phosphorus 2.4 Lactate 1.2, beta-hydroxybutyrate 6.30 Tx LR 1 L bolus Ceftriaxone 1 g IV, Flagyl 500 mg IV LR maintenance 100 mL/h Insulin sensitive sliding scale ordered, every 4 hourly, not given Neutra-Phos 3 g p.o. Hospital medicine was consulted for further management of suspected euglycemic DKA. ROS (positive in bold): Per HPI PMHx: Past Medical History: Diagnosis Date CKD (chronic kidney disease) stage 3, GFR 30-59 ml/min 01/31/2011 Obesity 01/31/2011 SurgHx: Past Surgical History: Procedure Laterality Date CT GUIDED DRAIN PANCREATIC/PERIPANCREATIC 03/25/2024 CT Guided Drain Pancreatic/Peripancreatic Joe Quintero, [facility] RAD CT SCAN IR BIOPSY LIVER PERCUTANEOUS - NON-FOCAL PARENCHYMA 01/07/2023 IR Biopsy Liver Percutaneous 01/07/2023 Juan Wright MD [facility] INTERVENTIONL RAD PRO PART REMV PANC, PROX+REMV DUOD+ANAST N/A 03/01/2024 @WHIPPLE PROCEDURE (WRVU 52.84) performed by Rudi Hernandez MD at [facility] MAIN OR PRO TRANSFER SKIN PEDICLE FLAP N/A 03/01/2024 TRANSFER, INTERMEDIATE, ANY PEDICLE FLAP, ANY LOCATION (WRVU 4.77) performed by Rudi Hernandez MD at [facility] MAIN OR FamHx: SocHx: Tob: EtOH: Illicits: Vitals: Last value 24hr range T 37.1 ??C (98.7 ??F) Temp: [36 ??C (96.8 ??F)-37.1 ??C (98.7 ??F)] HR 100 Heart Rate: [93-106] BP 120/81 BP: (117-146)/(67-91) RR 14 Resp: [10-20] SpO2 97 % SpO2: [97 %-98 %] Physical Exam: Physical Exam Constitutional: General: He is awake. Comments: NG tube noted HENT: Mouth/Throat: Mouth: Mucous membranes are dry. Eyes: Pupils: Pupils are equal, round, and reactive to light. Cardiovascular: Rate and Rhythm: Regular rhythm. Tachycardia present. Pulses: Radial pulses are 2+ on the right side and 2+ on the left side. Heart sounds: S1 normal and S2 normal. Pulmonary: Effort: No tachypnea or accessory muscle usage. Breath sounds: No wheezing or rhonchi. Abdominal: General: Abdomen is protuberant. A surgical scar is present. Tenderness: There is generalized abdominal tenderness. Comments: Tender around operative scar Musculoskeletal: Right lower leg: No edema. Left lower leg: No edema. Neurological: Mental Status: He is oriented to person, place, and time. Comments: Moving all 4 extremities spontaneously Psychiatric: Behavior: Behavior is cooperative. Labs: Last 3 Lytes Recent Labs 03/25/24 0435 03/24/24 2221 03/08/24 0444 NA 141 137 132* K 3.3* 3.8 3.2* CL 112* 105 97* CO2 8* 11* 21* BUN 9* 11 3* CREATININE 0.62* 0.79* 0.57* Last 3 LFTs Recent Labs 03/08/24 0444 03/07/24 0453 03/06/24 0409 AST 11 11 12 ALT 22 25 36 ALKPHOS 94 88 86 BILITOT 0.4 0.4 0.4 Last CRP, SEDRATENo results for input(s): CRP, SEDRATE in the last 7068 hours. Last CBC Lab Results Component Value Date WBC 9.0 03/25/2024 RBC 5.31 03/25/2024 HGB 12.7 (L) 03/25/2024 HCT 39.1 (L) 03/25/2024 MCV 73.6 (L) 03/25/2024 MCH 23.9 (L) 03/25/2024 MCHC 32.5 03/25/2024 PLATELET 284 03/25/2024 RDWCV 16.1 (H) 03/25/2024 Studies: OSH CT chest abdomen pelvis with contrast CHEST: THYROID: Normal partially visualized thyroid. CHEST WALL: Normal. LYMPH NODES: No lymphadenopathy. MEDIASTINUM AND LUIS: Normal. HEART: Normal heart size without pericardial effusion. Normal caliber thoracic aorta.] PULMONARY ARTERIES: No filling defects. PLEURA: No effusion. LUNGS AND AIRWAYS: The central airways are patent. No focal lung consolidation. No suspicious lung nodules. Lingular and left lower lobe linear platelike atelectasis. [...] Status post Whipple. Multiloculated peripancreatic collections in the region of the pancreaticojejunostomy containing fluid and extraluminal air measuring up to 5.4 cm. Differential includes anastomotic leak and/or abscess. 2. Pneumobilia with dilated extrahepatic biliary duct with transition point at the anastomosis, possibly due to postsurgical edema. 3. 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 No definite thrombus. 4. Skin dehiscence at the proximal laparotomy incision Assessment: Charles Nick is a 48 y.o. 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 Likely cause of patient's DKA is his intra-abdominal abscess. The patient's case used to be on dapagliflozin, and SGLT2, associated with euglycemic DKA. He got some fluids at the outside hospital, which could explain why the lactic acid is within normal limits, has severe mention in the note that his lactate may have been slightly elevated. Beta-hydroxybutyrate 6.3, which qualifies as severe DKA (based on bicarb level of 8 moderate DKA) Will initiate patient on DKA protocol. Potassium is at 3.3. Needs potassium repletion as well as close monitoring while the patient is on an insulin drip. May require both p.o. and IV repletion if the patient is tolerating p.o. intake. Recommendations: Euglycemic DKA > Possible precipitating factors: Insulin nonadherence, infection, pancreatitis, trauma, medications including steroids, SGLT2 inhibitor > Significant labs: Glucose 148, bicarb 8, anion gap 21, BH OB 6.3, Phos 2.4, potassium 3.3. PLAN - Start insulin at 0.1U/kg/hr up to max 30 U/hr - Check electrolytes every 4 hourly, including magnesium and phosphate. Target Mg greater than 1 - Aggressive potassium repletion: <3.3 mEq/L - Hold insulin and give potassium chloride 20 to 40 mEq/hour IV until K+ concentration is above 3.3 mEq/L 3.3 to 5.3 mEq/L - Give potassium chloride 20 to 30 mEq per liter IV fluid; maintain serum K+ between 4 to 5 mEq/L. >5.3 mEq/L - Do not give potassium; check serum K+ every 2 hours; delay administration of potassium chloride until serum K+ has fallen to 5 to 5.2 mEq/L. As starting glucose less than 250 mg per DL, start with D10 W LR at 100 mL/h Goal to consider resolution of DKA Anion gap less than 10-12 Bicarbonate greater than 20 x 2 readings POCT glucose less than 250 - Patient was seen and discussed with Dr. John Paul Logan. X Consult service will continue to follow patient. Crystal Rubio MD Internal Medicine, PGY3 Pager: [phone] Associated attestation - Joh nPaul Logan MD - 03/25/2024 7:04 PM EDT Please see Dr. Rubio's note for details of the 24hr events, current issues and clinical course. I have discussed, reviewed and agree with the documented history, physical findings, assessment and plan of care. I have examined the patient myself and reviewed all labs and studies personally. #euglycemic DKA in the setting of SGLT-2 inhibitor use, recent Whipple surgery and new peripancreatic abscess. Agree with the recommendations below and will emphasize that he must have labs drawn every four hours for early recognition of potentially severe electrolyte abnormalities (hypokalemia, hypophosphatemia) that can result from insulin drip. Appreciate instructions for transitioning from insulin drip to basal/bolus insulin from the DM management team. Please reach out to either medicine consults or DM management if questions arise when transitioning from insulin drip to basal/bolus. John Paul Logan MD 03/25/2024 6:57 PM * Consult Note - Francine Martinez RN - 03/25/2024 11:28 AM EDT Certified Wound Care Nurse Note Situation: Asked to see Charles Nick for diabetic foot ulcer, red base Background: eD-H notes reviewed for history, admitting diagnosis and active problem list. Labs Lab Results Component Value Date ALBUMIN 3.0 (L) 03/08/2024 ALBUMIN 3.0 (L) 03/07/2024 ALBUMIN 3.1 (L) 03/06/2024 HA1C 8.9 (H) 03/02/2024 WBC 9.0 03/25/2024 WBC 9.3 03/24/2024 WBC 10.0 (H) 03/08/2024 HGB 12.7 (L) 03/25/2024 HGB 14.0 03/24/2024 HGB 12.7 (L) 03/08/2024 HCT 39.1 (L) 03/25/2024 HCT 44.0 03/24/2024 HCT 39.2 (L) 03/08/2024 PLATELET 284 03/25/2024 PLATELET 309 03/24/2024 PLATELET 295 03/08/2024 INR 1.1 12/25/2022 PT 12.3 12/25/2022 Nutritional Status Wt Readings from Last 1 Encounters: 03/24/24 116.5 kg (256 lb 12.8 oz) Body mass index is 32.97 kg/m??. Good Score: 18 Wound Assessment and Care Provided: Consult performed in conjunction with Shahida Wright RN CWCN. Patient seen this morning in room [id number] bed, reason for visit explained to patient, permission received to assess skin. Anatomical location: right plantar foot Dressing removed: Mepilex Border. Serosanguinous drainage, small amount. Cleansed with: Dermal wound cleanser, gauze Wound: 90% pale pink clean tissue 10% slough Periwound: callus Dressing applied: Medihoney alginate, Mepilex Border Photos taken: Assessment: Diabetic Foot Ulcer of the right plantar foot. The most recent A1C is elevated at 8.9, which will impede the healing process. The edges of the callus were pared today using a disposable 15 blade. Continue with home plan of Medihoney alginate to promote autolytic debridement of the last 10% of the slough and antimicrobial support. The wound is followed by outpatient podiatry. Wound Care Recommendations: Right plantar foot: Medihoney alginate and Mepilex border Nursing to change every Friday, , and Friday and as needed for dressing with 50% or greater strike though drainage. 1. Cleanse the wound with dermal wound cleanser or normal saline. 2. Cut and insert a piece of Medihoney alginate to fit the wound bed. 3. Cover with a Mepilex border. ([facility] PS# [id number]) Supplies left at the bedside: 2 Medihoney alginate Wound Care Team will follow up peripherally. Discussed plan with: RN: Chris Please contact Francine Martinez RN on eD secure chat or the wound care team on pager [phone] with skin and wound care concerns or questions. Electronically Signed By: Francine Martinez RN * Plan of Care - Kassie Parker RN - 03/25/2024 1:39 AM EDT OUTCOME EVALUATION NOTE: OUTCOME SUMMARY: Admitted from [facility] for metabolic acidosis, intra-abdominal abscess, hypotension, N/V, weakness-orthostatic hypotension prior to admission at MD's office. Pt s/p whipple procedure with Dr. Hernandez on 03/01. Arrives lethargic, oriented x 3, denies pain, N/V. NSR, normotensive, afebrile. Breathing withoutdifficulty on RA. Last BM was 03/20/24, eating regular diet at home, bowel sounds hypoactive, passing flatus. Voids spontaneously. Incision to abdomen healing, steri strips in place, top of incision de-hissed with small amount of serosanguinous drainage. Diabetic foot ulcer to right plantar region open to air, per pt's SO, dressing removed at [facility], foam dressing applied. PLAN MOVING FORWARD: IR for drain placement to abdominal abscess NPO IV abx Wound consult ordered for foot wound INDIVIDUALIZED FALL PREVENTION INTERVENTIONS: Patient-specific fall risk factors per assessment: [current deficits]: Generalized weakness, monitoring wires/equipment, IV tubing Assistance [level of assistance required for transfers and ambulation]: Assist of 1 and walker Supervision [direct monitoring required during toileting and ADLs]: RN/TERELL Surveillance [continuous indirect monitoring]: Telemetry, pulse oximetry, SO at bedside Patient-specific fall prevention interventions for sensory deficits provided, if applicable: [X] N/A CARE PLAN GOAL OUTCOME EVALUATION: Problem: Adult Inpatient Plan of Care Goal: Plan of Care Review Outcome: Ongoing (Interventions Implemented as Appropriate) Goal: Patient-Specific Goal (Individualized) Outcome: Ongoing (Interventions Implemented as Appropriate) Goal: Absence of Hospital-Acquired Illness or Injury Outcome: Ongoing (Interventions Implemented as Appropriate) Goal: Optimal Comfort and Wellbeing Outcome: Ongoing (Interventions Implemented as Appropriate) Goal: Readiness for Transition of Care Outcome: Ongoing (Interventions Implemented as Appropriate) Problem: Fall Injury Risk Goal: Absence of Fall and Fall-Related Injury Outcome: Ongoing (Interventions Implemented as Appropriate) Problem: Infection Goal: Absence of Infection Signs and Symptoms Outcome: Ongoing (Interventions Implemented as Appropriate) documented in this encounter Plan of Treatment Upcoming Encounters Date Type Department Care Team (Late st Contact Info) Description 05/21/2024 9:00 AM EDT Office [place] [phone] Nighat López MD [facility] DR ENDO[place] [address] 05/28/2024 8:00 AM EDT Office Visit Hematology/Oncology at [address] [phone] Rodriguez Fowler MD [facility] [address] Sherry Cedillo APRN [address] [place] [address] [place] [address] 05/28/2024 8:30 AM EDT Infusion Hematology Oncology at [address] [phone] 05/28/2024 9:30 AM EDT Clinical Support Hematology/Oncology at [address] [phone] [facility] DR HEMATOLOGY [place] [address] Scheduled Referrals Name Type Priority Associated Diagnoses Orde r Schedule Referral to Home Health Outpatient Referral Routine Perihepatic abscess Ordered: 04/01/2024 documented as of this encounter Procedures Procedure Name Priority Date/Time Associated Diagnosis Comments POCT GLUCOSE Routine 04/01/2024 12:31 PM EDT POCT GLUCOSE Routine 04/01/2024 7:33 AM EDT AMYLASE LEVEL BODY FLUID STAT 04/01/2024 6:37 AM EDT HEMOGRAM Routine 04/01/2024 4:48 AM EDT DIFFERENTIAL, AUTOMATED Routine 04/01/20 4:48 AM EDT CBC (WITH DIFF) Routine 04/01/2024 4:48 AM EDT PHOSPHORUS Routine 04/01/2024 4:48 AM EDT MAGNESIUM Routine 04/01/2024 4:48 AM EDT BASIC METABOLIC PANEL Routine 04/01/2024 4:48 AM EDT POCT GLUCOSE Routine 04/01/2024 3:09 AM EDT POCT GLUCOSE Routine 03/31/2024 11:56 PM EDT POCT GLUCOSE Routine 03/31/2024 7:22 PM EDT POCT GLUCOSE Routine 03/31/2024 4:15 PM EDT HEMOGRAM Routine 03/31/2024 12:45 PM EDT DIFFERENTIAL, AUTOMATED Routine 03/31/20 12:45 PM EDT CBC (WITH DIFF) Routine [...] POCT GLUCOSE Routine 03/30/2024 11:59 AM EDT POCT GLUCOSE Routine 03/30/2024 7:32 [...] POCT GLUCOSE Routine 03/29/2024 7:22 AM EDT HEMOGRAM Routine 03/29/2024 4:30 AM EDT DIFFERENTIAL, AUTOMATED Routine 03/29/20 4:30 AM EDT CBC (WITH DIFF) Routine 03/29/2024 4:30 AM EDT TRIGLYCERIDE Routine 03/29/2024 4:30 AM EDT PHOSPHORUS Routine 03/29/2024 4:30 AM EDT MAGNESIUM Routine 03/29/2024 4:30 AM EDT HEPATIC FUNCTION PANEL Routine 4:30 AM EDT BASIC METABOLIC PANEL Routine [...] POCT GLUCOSE Routine 03/28/2024 12:00 PM EDT POCT GLUCOSE Routine 03/28/2024 7:41 AM [...] POCT GLUCOSE Routine 03/27/2024 12:04 PM EDT POCT GLUCOSE Routine 03/27/2024 8:00 AM EDT PHOSPHORUS Timed 03/27/2024 5:22 AM EDT MAGNESIUM Timed 03/27/2024 5:22 AM EDT BASIC METABOLIC PANEL Routine 03/27/2024 5:22 AM EDT POCT GLUCOSE Routine 03/27/2024 4:53 AM EDT HEMOGRAM Routine 03/27/2024 12:14 AM EDT DIFFERENTIAL, AUTOMATED Routine 03/27/20 12:14 AM EDT LAVENDER TUBE HOLD Routine 03/27/2024 12 :14 AM EDT PHOSPHORUS Timed 03/27/2024 12:14 AM EDT MAGNESIUM Timed 03/27/2024 12:14 AM EDT BASIC METABOLIC PANEL Routine 03/27/2024 12:14 AM EDT POCT GLUCOSE Routine 03/27/2024 12:10 AM EDT PHOSPHORUS Timed 03/26/2024 9:33 PM EDT MAGNESIUM Timed 03/26/2024 9:33 PM EDT POCT GLUCOSE Routine 03/26/2024 8:02 PM EDT POCT GLUCOSE Routine 03/26/2024 5:05 [...] POCT GLUCOSE Routine 03/26/2024 2:33 AM EDT HEMOGRAM Routine 03/26/2024 2:29 AM EDT DIFFERENTIAL, AUTOMATED Routine 03/26/20 2:29 AM EDT CBC (WITH DIFF) Routine 03/26/2024 2:29 AM EDT PHOSPHORUS Timed 03/26/2024 2:29 AM EDT MAGNESIUM Timed 03/26/2024 2:29 AM EDT BASIC METABOLIC PANEL Routine 03/26/2024 2:29 AM EDT POCT GLUCOSE [...] PANCREATIC/PERIPANCREAT IC Routine 03/25/2024 11:03 AM EDT ANAEROBIC CULTURE Routine 03/25/2024 10: 00 AM EDT HC GRAM STAIN FOR BACTERIA Routine 03/25/2024 10:00 AM EDT BODY FLUID CULTURE, AEROBIC Routine 03/25/2024 10:00 AM EDT AMYLASE LEVEL BODY FLUID Routine 03/25/2024 10:00 AM EDT POCT GLUCOSE Routine 03/25/2024 9:46 AM EDT POCT GLUCOSE Routine 03/25/2024 8:00 AM EDT LACTATE, WHOLE BLOOD Routine 03/25/2024 6:00 AM EDT HEMOGRAM Routine 03/25/2024 4:35 AM EDT DIFFERENTIAL, AUTOMATED Routine 03/25/20 24 4:35 AM EDT BETA HYDROXYBUTYRATE Routine 03/25/2024 4:35 AM EDT CBC (WITH DIFF) Routine 03/25/2024 4:35 AM EDT BASIC METABOLIC PANEL Routine 03/25/2024 4:35 AM EDT POCT GLUCOSE Routine 03/25/2024 4:31 AM EDT POCT GLUCOSE Routine 03/24/2024 11:56 PM EDT HEMOGRAM Routine 03/24/2024 10:21 PM EDT DIFFERENTIAL, AUTOMATED Routine 03/24/20 24 10:21 PM EDT CBC (WITH DIFF) Routine 03/24/2024 10:21 PM EDT PHOSPHORUS Routine 03/24/2024 10:21 PM EDT MAGNESIUM Routine 03/24/2024 10:21 PM EDT BASIC METABOLIC PANEL Routine 03/24/2024 10:21 PM EDT POCT GLUCOSE Routine 03/24/2024 9:17 PM EDT REQUEST FOR 2ND READ CT ABDOMEN AND PELVIS Routine 03/24/2024 7:48 PM EDT documented in this encounter Results * IR Drain Check/Change/Remove (04/21/2024 12:11 PM EDT) Anatomical Region Laterality Modality Head X-Ray Angiograph y Narrative 04/21/2024 12:26 PM EDT Table formatting from the original result was not included. Images from the original result were not included. IR PROCEDURE NOTE Procedure: Abdominal drain injection. Indication for Procedure: Per Latonia KIM, Charles Nick is a 48 y.o. male [...] Attending: Dr. Summer Logan performed this procedure. ? Juan SWEET IR ORDERABLES * IR Drain Check/Change/Remove (04/08/2024 12:38 PM [...] Wright Joe Quintero DO IMG IR ORDERABLES * Amylase Level Body Fluid (04/08/2024 9:30 AM EDT) Amylase, Fluid >7,500 unit/L [facility] Comment: Reference intervals are unavailable for this test in body fluids. Comparison of this result with the concentration in blood, serum, or plasma is recommended. This test has not been cleared by the [place] FDA. Performance characteristics of this test for the analysis of body fluids were determined by [facility] in accordance with CLIA requirements. This laboratory is qualified under CLIA to perform high-complexity testing. Amylase BF Type BASIA Drain [facility] BASIA Drain 04/08/2024 9:30 AM EDT 04/08/2024 9:40 AM EDT Narrative Resulting Agency Comment Spec In Lab Rudi Hernandez MD BODY FLUIDS AND OREN CASILLAS ORDERABLES [facility] [place] [address] * (ABNORMAL) Comprehensive metabolic panel (non-fasting) (04/08/2024 8:17 AM EDT) Glucose 183 65 - 199 mg/dL [facility] Comment:Diabetes: >=200 mg/d L plus symptoms Blood Urea Nitrogen 3(L) 10 - 20 mg/dL [facility] Creatinine 0.97 0.80 - 1.50 mg/dL [facility] Sodium 139 135 - 145 mmol/L [facility] [...] mmol/L [facility] Carbon Dioxide 26 22 - 31 mmol/L [facility] Anion Gap 13 5 - 15 mmol/L [facility] Calcium 9.3 8.5 - 10.5 mg/dL [facility] Protein, Total 7.3 6.1 - 8.0 g/dL [facility] Albumin 3.6 3.2 - 5.2 g/dL [facility] Aspartate Aminotransferase 26 0 - 39 unit/L [facility] Alanine Aminotransferase 30 0 - 55 unit/L [facility] Alkaline Phosphatase 105 40 - 130 unit/L [facility] Bilirubin, Total 0.3 0.2 - 1.3 mg/dL [facility] Est Glomerular Filtration Rate 96 >=60 mL/min/1. 73 m?? [facility] [...] Hernandez MD CHEMISTRY ORDERABLES Performing Organization Address [facility] Co de Phone Number [facility] [place] [address] * POCT Glucose (04/01/2024 12:31 PM EDT) Glucose, POC 192 65 - 199 mg/dL [facility] Comment: Supplemental ranges: <140 mg/dL before meals <180 mg/dL all other times of the day Blood 04/01/2024 12:3 1 PM EDT 04/01/2024 12:31 PM EDT Rudi Hernandez MD POINT OF CARE TEST O RDERABLES Performing Organization Address [facility] Co de Phone Number [facility] [place] [address] * POCT Glucose (04/01/2024 7:33 AM EDT) Glucose, POC 156 65 - 199 mg/dL [facility] Comment: Supplemental ranges: <140 mg/dL before meals <180 mg/dL all other times of the day Blood 04/01/2024 7:33 AM EDT 04/01/2024 7:33 AM EDT Rudi Hernandez MD POINT OF CARE TEST O RDERABLES Performing Organization Address [facility] Co de Phone Number [facility] [place] [address] * Amylase Level Body Fluid BASIA Drain (04/01/2024 6:37 AM EDT) Pathologist [facility] Amylase, Fluid >7,500 unit/L [facility] Comment: Reference intervals are unavailable for this test in body fluids. Comparison of this result with the concentration in blood, serum, or plasma is recommended. This test has not been cleared by the [place] FDA. Performance characteristics of this test for the analysis of body fluids were determined by [facility] in accordance with CLIA requirements. This laboratory is qualified under CLIA to perform high-complexity testing. Amylase BF Type BASIA Drain [facility] BASIA Drain 04/01/2024 6:37 AM EDT 04/01/2024 6:52 AM EDT Narrative Resulting Agency Comment Spec In Lab Rudi Hernandez MD BODY FLUIDS AND STOO LS ORDERABLES Performing Organization Address [facility] Co de Phone Number [facility] [place] [address] * Differential, Automated (04/01/2024 4:48 AM EDT) Pathologist [facility] Neutrophil % 61.5 % [facility] Neutrophil Absolute 3.78 1.70 - 6.10 x10(3)/[facility] Lymph % 20.4 % [facility] Lymphocytes Abs 1.2 0.9 - 3.2 x10(3)/[facility] Monocyte % 11.2 % [facility] Monocyte Abs 0.7 0.3 - 0.9 x10(3)/[facility] Eos % 5.4 % [facility] Eosinophils Abs 0.3 0.0 - 0.4 x10(3)/[facility] Basophil % 1.0 % [facility] Baso Absolute 0.1 0.0 - 0.1 x10(3)/[facility] Immature Gran % 0.50 % [facility] Comment: Immature granulocytes(IG's)percentage and absolute count will include metamyelocytes, myelocytes, and promyelocytes. Blood smears from CBCs yielding IG's will be scanned manually for concordance. If this scan disagrees with the automated IG or if promyelocytes are noted, a manual differential will be performed. Immature Gran Absolute 0.03 0.00 - 0.04 x10(3)/mcL [facility] Blood 04/01/2024 4:48 AM EDT 04/01/2024 5:00 AM EDT Narrative Resulting Agency Comment Spec In Lab Luke Hyde MD HEMATOLOGY ORDERABLE S [facility] [place] [address] * (ABNORMAL) Hemogram (04/01/2024 4:48 AM EDT) White Blood Cell 6.1 4.0 - 9.5 x10(3)/mc L [facility] Red Blood Cell 5.10 4.58 - 5.54 x10(6)/mc L [facility] Hemoglobin 12.1(L) 13.7 - 16.5 g/dL [facility] Hematocrit 37.2(L) 40.5 - 48.5 % [facility] Mean Cell Volume 72.9(L) 82.9 - 93.1 fL [facility] Mean Cell Hemoglobin 23.7(L) 27.5 - 32.1 pg [facility] Mean Cell Hemoglobin Concentration 32.5 32.0 - 35.7 g/dL [facility] Platelet 150 145 - 357 x10(3)/mc L [facility] RDW Standard Deviation 42.0 36.0 - 45.0 fL [facility] RDW coefficient of variation 17.0(H) 11.4 - 13.8 % [facility] Mean Platelet Volume 9.8 7.6 - 12.9 fL [facility] NRBC% auto 0.0 % [facility] NRBC Absolute 0.000 0.000 - 0.000 x10(3)/mc L [facility] Blood 04/01/2024 4:48 AM EDT 04/01/2024 5:00 AM EDT Narrative Resulting Agency Comment Spec In Lab Luke Hyde MD HEMATOLOGY ORDERABLE S [facility] [place] [address] * Phosphorus (04/01/2024 4:48 AM EDT) Phosphorus 4.0 2.5 - 4.5 mg/dL [facility] Blood 04/01/2024 4:48 AM EDT 04/01/2024 5:00 AM EDT Narrative Resulting Agency Comment Spec In Lab Rudi Hernandez MD CHEMISTRY ORDERABLES [facility] [place] [address] * Magnesium (04/01/2024 4:48 AM EDT) Magnesium 0.97 0.69 - 1.07 mmol/L [facility] Blood 04/01/2024 4:48 AM EDT 04/01/2024 5:00 AM EDT Narrative Resulting Agency Comment Spec In Lab Rudi Hernandez MD CHEMISTRY ORDERABLES Performing Organization Address City/[facility]/ZIP Co de Phone Number [facility] [place] [address] * (ABNORMAL) Basic Metabolic Panel (non-fasting) (04/01/2024 4:48 AM EDT) Glucose 165 65 - 199 mg/dL [facility] [...] MD CHEMISTRY ORDERABLES [facility] [place] [address] * POCT Glucose (04/01/2024 3:09 AM EDT) Glucose, POC 184 65 - 199 mg/dL [facility] Comment: Supplemental ranges: <140 mg/dL before meals <180 mg/dL all other times of the day Blood 04/01/2024 3:09 AM EDT 04/01/2024 3:09 AM EDT Rudi Hernandez MD POINT OF CARE TEST O RDERABLES Performing Organization Address City/[facility]/ZIP Co de Phone Number [facility] [place] [address] * POCT Glucose (03/31/2024 11:56 PM EDT) Glucose, POC 146 65 - 199 mg/dL [facility] Comment: Supplemental ranges: <140 mg/dL before meals <180 mg/dL all other times of the day Blood 03/31/2024 11:5 6 PM EDT 03/31/2024 11:56 PM EDT Rudi Hernandez MD POINT OF CARE TEST O ARASHERAVANNESSA Performing Organization Address [facility]/ZIP Co de Phone Number [facility] [place] [address] * POCT Glucose (03/31/2024 7:22 PM EDT) Glucose, POC 145 65 - 199 mg/dL [facility] Comment: Supplemental ranges: <140 mg/dL before meals <180 mg/dL all other times of the day Blood 03/31/2024 7:22 PM EDT 03/31/2024 7:22 PM EDT Rudi Hernandez MD POINT OF CARE TEST O RDERABLES [facility] [place] [address] * POCT Glucose (03/31/2024 4:15 PM EDT) Glucose, POC 155 65 - 199 mg/dL [facility] Comment: Supplemental ranges: <140 mg/dL before meals <180 mg/dL all other times of the day Blood 03/31/2024 4:15 PM EDT 03/31/2024 4:15 PM EDT Rudi Hernandez MD POINT OF CARE TEST O RDERABLES [facility] [place] [address] * Differential, Automated (03/31/2024 12:45 PM EDT) Neutrophil % 63.5 % [facility] Neutrophil Absolute 3.70 1.70 - 6.10 x10(3)/[facility] Lymph % 19.6 % [facility] Lymphocytes Abs 1.1 0.9 - 3.2 x10(3)/[facility] Monocyte % 10.5 % [facility] Monocyte Abs 0.6 0.3 - 0.9 x10(3)/[facility] Eos % 5.0 % [facility] Eosinophils Abs 0.3 0.0 - 0.4 x10(3)/[facility] Basophil % 0.7 % [facility] Baso Absolute 0.0 0.0 - 0.1 x10(3)/[facility] Immature Gran % 0.70 % [facility] Comment: Immature granulocytes(IG's)percentage and absolute count will include metamyelocytes, myelocytes, and promyelocytes. Blood smears from CBCs yielding IG's will be scanned manually for concordance. If this scan disagrees with the automated IG or if promyelocytes are noted, a manual differential will be performed. Immature Gran Absolute 0.04 0.00 - 0.04 x10(3)/[facility] Blood 03/31/2024 12:4 5 PM EDT 03/31/2024 12:56 PM EDT Narrative Resulting Agency Comment Spec In Lab Rudi Hernandez MD HEMATOLOGY ORDERABLE S [facility] [place] [address] * (ABNORMAL) Hemogram (03/31/2024 12:45 PM EDT) White Blood Cell 5.8 4.0 - 9.5 x10(3)/mc L [facility] Red Blood Cell 4.96 4.58 - 5.54 x10(6)/ L [facility] Hemoglobin 11.9(L) 13.7 - 16.5 g/dL [facility] Hematocrit 37.4(L) 40.5 - 48.5 % [facility] Mean Cell Volume 75.4(L) 82.9 - 93.1 fL [facility] Mean Cell Hemoglobin 24.0(L) 27.5 - 32.1 pg [facility] Mean Cell Hemoglobin Concentration 31.8(L) 32.0 - 35.7 g/dL [facility] Platelet 162 145 - 357 x10(3)/[facility] RDW Standard Deviation 43.7 36.0 - 45.0 [facility] RDW coefficient of variation 17.1(H) 11.4 - 13.8 % [facility] Mean Platelet Volume 9.8 7.6 - 12.9 [facility] NRBC% auto 0.0 % [facility] NRBC Absolute 0.000 0.000 - 0.000 x10(3)/[facility] Blood 03/31/2024 12:4 5 PM EDT 03/31/2024 12:56 PM EDT Narrative Resulting Agency Comment Spec In Lab Rudi Hernandez MD HEMATOLOGY ORDERABLE S [facility] [place] [address] * (ABNORMAL) POCT Glucose (03/31/2024 12:20 PM EDT) [facility] Glucose, POC 263(H) 65 - 199 mg/dL [facility] Comment: Supplemental ranges: <140 mg/dL before meals <180 mg/dL all other times of the day Blood 03/31/2024 12:2 0 PM EDT 03/31/2024 12:20 PM EDT Rudi Hernandez MD POINT OF CARE TEST O RDERABLES [facility] [place] [address] * Phosphorus (03/31/2024 8:30 AM EDT) [facility] Phosphorus 3.6 2.5 - 4.5 mg/dL [facility] Blood 03/31/2024 8:30 AM EDT 03/31/2024 8:52 AM EDT Narrative Resulting Agency Comment Spec In Lab Rudi Hernandez MD CHEMISTRY ORDERABLES Performing Organization Address City/[facility]/ZIP Co de Phone Number [facility] [place] [address] * Magnesium (03/31/2024 8:30 AM EDT) [facility] Magnesium 0.93 0.69 - 1.07 mmol/L [facility] Blood 03/31/2024 8:30 AM EDT 03/31/2024 8:52 AM EDT Narrative Resulting Agency Comment Spec In Lab Rudi Hernandez MD CHEMISTRY ORDERABLES Performing Organization Address City/[facility]/ZIP Co de Phone Number [facility] [place] [address] * (ABNORMAL) Basic Metabolic Panel (non-fasting) (03/31/2024 8:30 AM EDT) [facility] Glucose 185 65 - 199 mg/dL [facility] Comment:Diabetes: >=200 mg/d L plus symptoms Blood Urea Nitrogen 8(L) 10 - 20 mg/dL [facility] Creatinine 0.64(L) 0.80 - 1.50 mg/dL [facility] Sodium 136 135 - 145 mmol/L [facility] Potassium 4.7 3.5 - 5.0 mmol/L [facility] [...] mmol/L [facility] Anion Gap 7 5 - 15 mmol/L [facility] Calcium 8.6 8.5 - 10.5 mg/dL [facility] Est Glomerular Filtration Rate 116 >=60 mL/min/1. 73 m?? [facility] [...] and symptoms in addition to eGFR. Blood 03/31/2024 8:30 AM EDT 03/31/2024 8:52 AM EDT Narrative Resulting Agency Comment Spec In Lab Rudi Hernandez MD CHEMISTRY ORDERABLES [facility] [place] [address] * POCT Glucose (03/31/2024 8:05 AM EDT) Glucose, POC 164 65 - 199 mg/dL [facility] Comment: Supplemental ranges: <140 mg/dL before meals <180 mg/dL all other times of the day Blood 03/31/2024 8:05 AM EDT 03/31/2024 8:05 AM EDT Rudi Hernandez MD POINT OF CARE TEST O RDERAVANNESSA Performing Organization Address City/[facility] Co de Phone Number [facility] [place] [address] * (ABNORMAL) POCT Glucose (03/31/2024 4:51 AM EDT) Glucose, POC 217(H) 65 - 199 mg/dL [facility] Comment: Supplemental ranges: <140 mg/dL before meals <180 mg/dL all other times of the day Blood 03/31/2024 4:51 AM EDT 03/31/2024 4:51 AM EDT Rudi Hernandez MD POINT OF CARE TEST O ELKIN Performing Organization Address [facility] Co de Phone Number [facility] [place] [address] * POCT Glucose (03/30/2024 11:46 PM EDT) Glucose, POC 196 65 - 199 mg/dL [facility] Comment: Supplemental ranges: <140 mg/dL before meals <180 mg/dL all other times of the day Blood 03/30/2024 11:4 6 PM EDT 03/30/2024 11:46 PM EDT Rudi Hernandez MD POINT OF CARE TEST O RDERABLES Performing Organization Address City/[facility] Co de Phone Number [facility] [place] [address] * POCT Glucose (03/30/2024 7:23 PM EDT) Glucose, POC 169 65 - 199 mg/dL [facility] Comment: Supplemental ranges: <140 mg/dL before meals <180 mg/dL all other times of the day Blood 03/30/2024 7:23 PM EDT 03/30/2024 7:23 PM EDT Rudi Hernandez MD POINT OF CARE TEST O RDLIAT [facility] [place] [address] * POCT Glucose (03/30/2024 4:28 PM EDT) Glucose, POC 174 65 - 199 mg/dL [facility] Comment: Supplemental ranges: <140 mg/dL before meals <180 mg/dL all other times of the day Blood 03/30/2024 4:28 PM EDT 03/30/2024 4:28 PM EDT Rudi Hernandez MD POINT OF CARE TEST O ELKIN Performing Organization Address City/[facility]/ZIP Co de Phone Number [facility] [place] [address] * POCT Glucose (03/30/2024 11:59 AM EDT) Glucose, POC 184 65 - 199 mg/dL [facility] Comment: Supplemental ranges: <140 mg/dL before meals <180 mg/dL all other times of the day Blood 03/30/2024 11:5 9 AM EDT 03/30/2024 11:59 AM EDT Rudi Hernandez MD POINT OF CARE TEST O RDERAVANNESSA [facility] [place] [address] * POCT Glucose (03/30/2024 7:32 AM EDT) Glucose, POC 166 65 - 199 mg/dL [facility] Comment: Supplemental ranges: <140 mg/dL before meals <180 mg/dL all other times of the day Blood 03/30/2024 7:32 AM EDT 03/30/2024 7:32 AM EDT Rudi Hernandez MD POINT OF CARE TEST O RDERABLES Performing Organization Address [facility] Co de Phone Number [facility] [place] [address] * Phosphorus (03/30/2024 6:00 AM EDT) Phosphorus 3.6 2.5 - 4.5 mg/dL [facility] Blood 03/30/2024 6:00 AM EDT 03/30/2024 6:12 AM EDT Narrative Resulting Agency Comment Spec In Lab Rudi Hernandez MD CHEMISTRY ORDERABLES Performing Organization Address [facility] Co de Phone Number [facility] [place] [address] * Magnesium (03/30/2024 6:00 AM EDT) Magnesium 0.93 0.69 - 1.07 mmol/L [facility] Blood 03/30/2024 6:00 AM EDT 03/30/2024 6:12 AM EDT Narrative Resulting Agency Comment Spec In Lab Rudi Hernandez MD CHEMISTRY ORDERABLES Performing Organization Address [facility] Co de Phone Number [facility] [place] [address] * (ABNORMAL) Basic Metabolic Panel (non-fasting) (03/30/2024 6:00 AM EDT) Glucose 208(H) 65 - 199 mg/dL [facility] Comment:Diabetes: >=200 mg/d L plus symptoms Blood Urea Nitrogen 7(L) 10 - 20 mg/dL [facility] Creatinine 0.59(L) 0.80 - 1.50 mg/dL [facility] Sodium 139 135 - 145 mmol/L [facility] Potassium 4.0 3.5 - 5.0 mmol/L [facility] Comment: Please note: ??Patients with WBC >100,000 may have falsely elevated Potassium levels. ??For accurate Potassium quantification in these patients send serum separator tube (gold top) for subsequent determinations. ??Contact the Clinical Chemistry Laboratory if there are any questions. Chloride 100 98 - 107 mmol/L [facility] Carbon Dioxide 31 22 - 31 mmol/L [facility] Anion Gap 8 5 - 15 mmol/L [facility] Calcium 8.6 8.5 - 10.5 mg/dL [facility] Est Glomerular Filtration Rate 119 >=60 mL/min/1. 73 m?? [facility] [...] and symptoms in addition to eGFR. Blood 03/30/2024 6:00 AM EDT 03/30/2024 6:12 AM EDT Narrative Resulting Agency Comment Spec In Lab Rudi Hernandez MD CHEMISTRY ORDERABLES [facility] [place] [address] * POCT Glucose (03/30/2024 4:19 AM EDT) Glucose, POC 184 65 - 199 mg/dL [facility] Comment: Supplemental ranges: <140 mg/dL before meals <180 mg/dL all other times of the day Blood 03/30/2024 4:19 AM EDT 03/30/2024 4:19 AM EDT Rudi Hernandez MD POINT OF CARE TEST O RDERABLES Performing Organization Address [facility]/ZIP Co de Phone Number [facility] [place] [address] * (ABNORMAL) POCT Glucose (03/29/2024 11:38 PM EDT) Glucose, POC 212(H) 65 - 199 mg/dL [facility] Comment: Supplemental ranges: <140 mg/dL before meals <180 mg/dL all other times of the day Blood 03/29/2024 11:3 8 PM EDT 03/29/2024 11:38 PM EDT Rudi Hernandez MD POINT OF CARE TEST O RDERAVANNESSA Performing Organization Address [facility] Co de Phone Number [facility] [place] [address] * POCT Glucose (03/29/2024 7:36 PM EDT) Glucose, POC 159 65 - 199 mg/dL [facility] Comment: Supplemental ranges: <140 mg/dL before meals <180 mg/dL all other times of the day Blood 03/29/2024 7:36 PM EDT 03/29/2024 7:36 PM EDT Rudi Hernandez MD POINT OF CARE TEST O RDERAVANNESSA Performing Organization Address [facility] Center/[facility] Co de Phone Number [facility] [place] [address] * POCT Glucose (03/29/2024 3:46 PM EDT) Glucose, POC 167 65 - 199 mg/dL [facility] Comment: Supplemental ranges: <140 mg/dL before meals <180 mg/dL all other times of the day Blood 03/29/2024 3:46 PM EDT 03/29/2024 3:46 PM EDT Rudi Hernandez MD POINT OF CARE TEST O RDERABLES Performing Organization Address [facility] Co de Phone Number [facility] [place] [address] * EKG 12 Lead (03/29/2024 3:33 PM EDT) Ventricular rate 73 BPM MUSE SYSTEM Atrial Rate 73 BPM MUSE SYSTEM P-R Interval 128 ms MUSE SYSTEM QRS Duration 90 ms MUSE SYSTEM Q-T Interval 402 ms MUSE SYSTEM QTC Calculated (Bezet) 442 ms MUSE SYSTEM Calculated P Lynd[place] 15 degrees MUSE SYSTEM Calculated R [place] 53 degrees MUSE SYSTEM Calculated T [place] 16 degrees MUSE SYSTEM INTERPRETATION Normal sinus rhythm Normal ECG When compared with ECG of 06-MAR-2024 06:30, QT has shortened Confirmed by MD Reynaldo, Avinash ([id number]) on 03/30/2024 9:28:45 AM MUSE SYSTEM 03/29/2024 3:33 PM EDT 03/30/2024 9:28 AM EDT Rudi Hernandez MD ECG ORDERABLES Performing Organization Address [facility] Co de Phone Number MUSE SYSTEM * (ABNORMAL) POCT Glucose (03/29/2024 11:56 AM EDT) Glucose, POC 238(H) 65 - 199 mg/dL [facility] Comment: Supplemental ranges: <140 mg/dL before meals <180 mg/dL all other times of the day Blood 03/29/2024 11:5 6 AM EDT 03/29/2024 11:56 AM EDT Rudi Hernandez MD POINT OF CARE TEST O RDERABLES Performing Organization Address [facility] Co de Phone Number [facility] [place] [address] * POCT Glucose (03/29/2024 11:16 AM EDT) Glucose, POC 184 65 - 199 mg/dL [facility] Comment: Supplemental ranges: <140 mg/dL before meals <180 mg/dL all other times of the day Blood 03/29/2024 11:1 6 AM EDT 03/29/2024 11:16 AM EDT Rudi Hernandez MD POINT OF CARE TEST O ELKIN Performing Organization Address [facility] de Phone Number [facility] [place] [address] * POCT Glucose (03/29/2024 7:22 AM EDT) Glucose, POC 187 65 - 199 mg/dL [facility] Comment: Supplemental ranges: <140 mg/dL before meals <180 mg/dL all other times of the day Blood 03/29/2024 7:22 AM EDT 03/29/2024 7:22 AM EDT Rudi Hernandez MD POINT OF CARE TEST O RDERABLES Performing Organization Address [facility] de Phone Number [facility] [place] [address] * Triglyceride (03/29/2024 4:30 AM EDT) Triglyceride 91 mg/dL [facility] Comment: Normal: ?<150 mg/dL Borderline High: 150-199 mg/dL High: ?200-499 mg/dL Very High: ? >cp=892 mg/dL Blood Venous Draw / Unknown 03/29/2024 4:30 AM EDT 03/29/2024 4:36 AM EDT Narrative Resulting Agency Comment Spec In Lab Rudi Hernandez MD CHEMISTRY ORDERABLES Performing Organization Address [facility] Co de Phone Number [facility] [place] [address] * (ABNORMAL) Hepatic Function Panel (03/29/2024 4:30 [...] MD CHEMISTRY ORDERABLES [facility] [place] [address] * Differential, Automated (03/29/2024 4:30 AM EDT) Neutrophil % 70.7 % [facility] Neutrophil Absolute 4.58 1.70 - 6.10 x10(3)/[facility] LABORATORY Lymph % 16.5 % [facility] Lymphocytes Abs 1.1 0.9 - 3.2 x10(3)/[facility] LABORATORY Monocyte % 8.2 % [facility] Monocyte Abs 0.5 0.3 - 0.9 x10(3)/[facility]OR[facility]ORY Eos % 3.6 % [facility] Eosinophils Abs 0.2 0.0 - 0.4 x10(3)/[facility] LABORATORY Basophil % 0.5 % [facility] Baso Absolute 0.0 0.0 - 0.1 x10(3)/[facility] LABORATORY Immature Gran % 0.50 % [facility] Comment: Immature granulocytes(IG's)percentage and absolute count will include metamyelocytes, myelocytes, and promyelocytes. Blood smears from CBCs yielding IG's will be scanned manually for concordance. If this scan disagrees with the automated IG or if promyelocytes are noted, a manual differential will be performed. Immature Gran Absolute 0.03 0.00 - 0.04 x10(3)/mcL [facility] Blood 03/29/2024 4:30 AM EDT 03/29/2024 4:35 AM EDT Narrative Resulting Agency Comment Spec In Lab Janette Austin MD HEMATOLOGY ORDERABLE S [facility] [place] [address] * (ABNORMAL) Hemogram (03/29/2024 4:30 AM EDT) White Blood Cell 6.5 4.0 - 9.5 x10(3)/[facility] LABORATORY Red Blood Cell 5.03 4.58 - 5.54 x10(6)/[facility] LABORATORY Hemoglobin 12.0(L) 13.7 - 16.5 g/dL [facility] Hematocrit 36.6(L) 40.5 - 48.5 % [facility] Mean Cell Volume 72.8(L) 82.9 - 93.1 fL [facility] Mean Cell Hemoglobin 23.9(L) 27.5 - 32.1 pg [facility] Mean Cell Hemoglobin Concentration 32.8 32.0 - 35.7 g/dL [facility] Platelet 152 145 - 357 x10(3)/[facility] LABORATORY RDW Standard Deviation 40.4 36.0 - 45.0 [facility]ATORY RDW coefficient of variation 15.7(H) 11.4 - 13.8 % [facility] Mean Platelet Volume 9.5 7.6 - 12.9 [facility] LAB[facility]ATORY NRBC% auto 0.0 % [facility] NRBC Absolute 0.000 0.000 - 0.000 x10(3)/ L [facility] Blood 03/29/2024 4:30 AM EDT 03/29/2024 4:35 AM EDT Narrative Resulting Agency Comment Spec In Lab Janette Austin MD HEMATOLOGY ORDERABLE S Performing Organization Address [facility]/ZIP Co de Phone Number [facility] [place] [address] * Magnesium (03/29/2024 4:30 AM EDT) Magnesium 0.87 0.69 - 1.07 mmol/L [facility] Blood 03/29/2024 4:30 AM EDT 03/29/2024 4:35 AM EDT Narrative Resulting Agency Comment Spec In Lab Rudi Hernandez MD CHEMISTRY ORDERABLES Performing Organization Address [facility] Co de Phone Number [facility] [place] [address] * Phosphorus (03/29/2024 4:30 AM EDT) Phosphorus 2.9 2.5 - 4.5 mg/dL [facility] Blood 03/29/2024 4:30 AM EDT 03/29/2024 4:35 AM EDT Narrative Resulting Agency Comment Spec In Lab Rudi Hernandez MD CHEMISTRY ORDERABLES Performing Organization Address [facility] Co de Phone Number [facility] [place] [address] * (ABNORMAL) Basic Metabolic Panel (non-fasting) (03/29/2024 4:30 AM EDT) Glucose 201(H) 65 - 199 mg/dL [facility] Comment:Diabetes: >=200 mg/d L plus symptoms Blood Urea Nitrogen 5(L) 10 - 20 mg/dL [facility] Creatinine 0.54(L) 0.80 - 1.50 mg/dL [facility] Sodium 136 135 - 145 mmol/L [facility] Potassium 3.3(L) 3.5 - 5.0 mmol/L [facility] Comment: Please note: ??Patients with WBC >100,000 may have falsely elevated Potassium levels. ??For accurate Potassium quantification in these patients send serum separator tube (gold top) for subsequent determinations. ??Contact the Clinical Chemistry Laboratory if there are any questions. Chloride 95(L) 98 - 107 mmol/L [facility] Carbon Dioxide 31 22 - 31 mmol/L [facility] Anion Gap 10 5 - 15 mmol/L [facility] Calcium 8.5 8.5 - 10.5 mg/dL [facility] Est Glomerular Filtration Rate 122 >=60 mL/min/1. 73 m?? [facility] [...] and symptoms in addition to eGFR. Blood 03/29/2024 4:30 AM EDT 03/29/2024 4:35 AM EDT Narrative Resulting Agency Comment Spec In Lab Rudi Hernandez MD CHEMISTRY ORDERABLES [facility] [place] [address] * POCT Glucose (03/29/2024 4:11 AM EDT) Glucose, POC 195 65 - 199 mg/dL [facility] Comment: Supplemental ranges: <140 mg/dL before meals <180 mg/dL all other times of the day Blood 03/29/2024 4:11 AM EDT 03/29/2024 4:11 AM EDT Rudi Hernandez MD POINT OF CARE TEST O ELKIN Performing Organization Address [facility] Co de Phone Number [facility] [place] [address] * POCT Glucose (03/29/2024 12:05 AM EDT) Glucose, POC 187 65 - 199 mg/dL [facility] Comment: Supplemental ranges: <140 mg/dL before meals <180 mg/dL all other times of the day Blood 03/29/2024 12:0 5 AM EDT 03/29/2024 12:05 AM EDT Rudi Hernandez MD POINT OF CARE TEST O ARASHERAVANNESSA Performing Organization Address [facility] de Phone Number [facility] [place] [address] * POCT Glucose (03/28/2024 8:51 PM EDT) Glucose, POC 171 65 - 199 mg/dL [facility] Comment: Supplemental ranges: <140 mg/dL before meals <180 mg/dL all other times of the day Blood 03/28/2024 8:51 PM EDT 03/28/2024 8:51 PM EDT Rudi Hernandez MD POINT OF CARE TEST O ELKIN Performing Organization Address [facility] Co de Phone Number [facility] [place] [address] * (ABNORMAL) Phosphorus (03/28/2024 5:30 PM EDT) Phosphorus 2.0(L) 2.5 - 4.5 mg/dL [facility] Blood 03/28/2024 5:30 PM EDT 03/28/2024 5:36 PM EDT Narrative Resulting Agency Comment Spec In Lab Rudi Hernandez MD CHEMISTRY ORDERABLES [facility] [place] [address] * Magnesium (03/28/2024 5:30 PM EDT) Magnesium 0.78 0.69 - 1.07 mmol/L [facility] Blood 03/28/2024 5:30 PM EDT 03/28/2024 5:36 PM EDT Narrative Resulting Agency Comment Spec In Lab Rudi Hernandez MD CHEMISTRY ORDERABLES Performing Organization Address [facility] Co de Phone Number [facility] [place] [address] * (ABNORMAL) Basic Metabolic Panel (non-fasting) (03/28/2024 5:30 PM EDT) Glucose 194 65 - 199 mg/dL [facility] Comment:Diabetes: >=200 mg/d L plus symptoms Blood Urea Nitrogen 4(L) 10 - 20 mg/dL [facility] Creatinine 0.55(L) 0.80 - 1.50 mg/dL [facility] Sodium 139 135 - 145 mmol/L [facility] Potassium 3.2(L) 3.5 - 5.0 mmol/L [facility] Comment: Please note: ??Patients with WBC >100,000 may have falsely elevated Potassium levels. ??For accurate Potassium quantification in these patients send serum separator tube (gold top) for subsequent determinations. ??Contact the Clinical Chemistry Laboratory if there are any questions. Chloride 100 98 - 107 mmol/L [facility] Carbon Dioxide 31 22 - 31 mmol/L [facility] Anion Gap 8 5 - 15 mmol/L [facility] Calcium 8.4(L) 8.5 - 10.5 mg/dL [facility] Est Glomerular Filtration Rate 121 >=60 mL/min/1. 73 m?? [facility] [...] and symptoms in addition to eGFR. Blood 03/28/2024 5:30 PM EDT 03/28/2024 5:36 PM EDT Narrative Resulting Agency Comment Spec In Lab Rudi Hernandez MD CHEMISTRY ORDERABLES Performing Organization Address [facility] Co de Phone Number [facility] [place] [address] * POCT Glucose (03/28/2024 4:10 PM EDT) Glucose, POC 164 65 - 199 mg/dL [facility] Comment: Supplemental ranges: <140 mg/dL before meals <180 mg/dL all other times of the day Blood 03/28/2024 4:10 PM EDT 03/28/2024 4:10 PM EDT Rudi Hernandez MD POINT OF CARE TEST O RDERABLES Performing Organization Address City/[facility]/ZIP Co de Phone Number [facility] [place] [address] * (ABNORMAL) POCT Glucose (03/28/2024 12:00 PM EDT) Glucose, POC 209(H) 65 - 199 mg/dL [facility] Comment: Supplemental ranges: <140 mg/dL before meals <180 mg/dL all other times of the day Blood 03/28/2024 12:0 0 PM EDT 03/28/2024 12:00 PM EDT Rudi Hernandez MD POINT OF CARE TEST O RDERABLES Performing Organization Address City/[facility]/ZIP Co de Phone Number [facility] [place] [address] * POCT Glucose (03/28/2024 7:41 AM EDT) Glucose, POC 193 65 - 199 mg/dL [facility] Comment: Supplemental ranges: <140 mg/dL before meals <180 mg/dL all other times of the day Blood 03/28/2024 7:41 AM EDT 03/28/2024 7:41 AM EDT Rudi Hernandez MD POINT OF CARE TEST O ELKIN Performing Organization Address [facility] Co de Phone Number [facility] [place] [address] * Phosphorus (03/28/2024 7:35 AM EDT) Phosphorus 2.6 2.5 - 4.5 mg/dL [facility] Blood 03/28/2024 7:35 AM EDT 03/28/2024 7:51 AM EDT Narrative Resulting Agency Comment Spec In Lab Rudi Hernandez MD CHEMISTRY ORDERABLES Performing Organization Address [facility] Co de Phone Number [facility] [place] [address] * Magnesium (03/28/2024 7:35 AM EDT) Magnesium 0.78 0.69 - 1.07 mmol/L [facility] Blood 03/28/2024 7:35 AM EDT 03/28/2024 7:51 AM EDT Narrative Resulting Agency Comment Spec In Lab Rudi Hernandez MD CHEMISTRY ORDERABLES Performing Organization Address [facility]/ZIP Co de Phone Number [facility] [place] [address] * (ABNORMAL) Basic Metabolic Panel (non-fasting) (03/28/2024 7:35 AM EDT) Glucose 215(H) 65 - 199 mg/dL [facility] Comment:Diabetes: >=200 mg/d L plus symptoms Blood Urea Nitrogen 3(L) 10 - 20 mg/dL [facility] Creatinine 0.56(L) 0.80 - 1.50 mg/dL [facility] Sodium 140 135 - 145 mmol/L [facility] Potassium 3.3(L) 3.5 - 5.0 mmol/L [facility] [...] mmol/L [facility] Anion Gap 11 5 - 15 mmol/L [facility] Calcium 8.3(L) 8.5 - 10.5 mg/dL [facility] Est Glomerular Filtration Rate 121 >=60 mL/min/1. 73 m?? [facility] [...] and symptoms in addition to eGFR. Blood 03/28/2024 7:35 AM EDT 03/28/2024 7:51 AM EDT Narrative Resulting Agency Comment Spec In Lab Rudi Hernandez MD CHEMISTRY ORDERABLES [facility] [place] [address] * POCT Glucose (03/28/2024 4:14 AM EDT) Glucose, POC 194 65 - 199 mg/dL [facility] Comment: Supplemental ranges: <140 mg/dL before meals <180 mg/dL all other times of the day Blood 03/28/2024 4:14 AM EDT 03/28/2024 4:14 AM EDT Rudi Hernandez MD POINT OF CARE TEST O ARASHERAVANNESSA Performing Organization Address [facility] Co de Phone Number [facility] [place] [address] * POCT Glucose (03/28/2024 12:36 AM EDT) Glucose, POC 196 65 - 199 mg/dL [facility] Comment: Supplemental ranges: <140 mg/dL before meals <180 mg/dL all other times of the day Blood 03/28/2024 12:3 6 AM EDT 03/28/2024 12:36 AM EDT Rudi Hernandez MD POINT OF CARE TEST O ELKIN Performing Organization Address City/[facility]/ZIP Co de Phone Number [facility] [place] [address] * (ABNORMAL) Hemogram (03/28/2024 12:30 AM EDT) White Blood Cell 5.4 4.0 - 9.5 x10(3)/mc L [facility] Red Blood Cell 4.89 4.58 - 5.54 x10(6)/mc L [facility] Hemoglobin 11.5(L) 13.7 - 16.5 g/dL [facility] Hematocrit 34.8(L) 40.5 - 48.5 % [facility] Mean Cell Volume 71.2(L) 82.9 - 93.1 fL [facility] Mean Cell Hemoglobin 23.5(L) 27.5 - 32.1 pg [facility] Mean Cell Hemoglobin Concentration 33.0 32.0 - 35.7 g/dL [facility] Platelet 185 145 - 357 x10(3)/mc L [facility] RDW Standard Deviation 41.1 36.0 - 45.0 fL [facility] RDW coefficient of variation 16.1(H) 11.4 - 13.8 % [facility] Mean Platelet Volume 9.6 7.6 - 12.9 fL [facility] NRBC% auto 0.0 % [facility] NRBC Absolute 0.000 0.000 - 0.000 x10(3)/mc L [facility] Blood 03/28/2024 12:3 0 AM EDT 03/28/2024 12:59 AM EDT Narrative Resulting Agency Comment Spec In Lab Rudi Hernandez MD HEMATOLOGY ORDERABLE S [facility] [place] [address] * POCT Glucose (03/27/2024 8:24 PM EDT) Glucose, POC 162 65 - 199 mg/dL [facility] Comment: Supplemental ranges: <140 mg/dL before meals <180 mg/dL all other times of the day Blood 03/27/2024 8:24 PM EDT 03/27/2024 8:24 PM EDT Rudi Hernandez MD POINT OF CARE TEST O RDERABLES [facility] [place] [address] * Phosphorus (03/27/2024 6:10 PM EDT) Phosphorus 2.5 2.5 - 4.5 mg/dL [facility] Blood 03/27/2024 6:10 PM EDT 03/27/2024 6:25 PM EDT Narrative Resulting Agency Comment Spec In Lab Rudi Hernandez MD CHEMISTRY ORDERABLES Performing Organization Address City/[facility] Co de Phone Number [facility] [place] [address] * Magnesium (03/27/2024 6:10 PM EDT) Magnesium 0.74 0.69 - 1.07 mmol/L [facility] Blood 03/27/2024 6:10 PM EDT 03/27/2024 6:25 PM EDT Narrative Resulting Agency Comment Spec In Lab Rudi Hernandez MD CHEMISTRY ORDERABLES Performing Organization Address [facility] Co de Phone Number [facility] [place] [address] * (ABNORMAL) Basic Metabolic Panel (non-fasting) (03/27/2024 6:10 PM EDT) Glucose 153 65 - 199 mg/dL [facility] Comment:Diabetes: >=200 mg/d L plus symptoms Blood Urea Nitrogen 2(L) 10 - 20 mg/dL [facility] Creatinine 0.65(L) 0.80 - 1.50 mg/dL [facility] Sodium 142 135 - 145 mmol/L [facility] Potassium 3.1(L) 3.5 - 5.0 mmol/L [facility] Comment: Please note: ??Patients with WBC >100,000 may have falsely elevated Potassium levels. ??For accurate Potassium quantification in these patients send serum separator tube (gold top) for subsequent determinations. ??Contact the Clinical Chemistry Laboratory if there are any questions. Chloride 105 98 - 107 mmol/L [facility] Carbon Dioxide 27 22 - 31 mmol/L [facility] Anion Gap 10 5 - 15 mmol/L [facility] Calcium 8.4(L) 8.5 - 10.5 mg/dL [facility] Est Glomerular Filtration Rate 116 >=60 mL/min/1. 73 m?? [facility] [...] and symptoms in addition to eGFR. Blood 03/27/2024 6:10 PM EDT 03/27/2024 6:25 PM EDT Narrative Resulting Agency Comment Spec In Lab Rudi Hernandez MD CHEMISTRY ORDERABLES Performing Organization Address [facility]/ZIP Co de Phone Number [facility] [place] [address] * POCT Glucose (03/27/2024 3:53 PM EDT) Glucose, POC 144 65 - 199 mg/dL [facility] Comment: Supplemental ranges: <140 mg/dL before meals <180 mg/dL all other times of the day Blood 03/27/2024 3:53 PM EDT 03/27/2024 3:53 PM EDT Rudi Hernandez MD POINT OF CARE TEST O RDERABLES [facility] [place] [address] * POCT Glucose (03/27/2024 12:04 PM EDT) Glucose, POC 155 65 - 199 mg/dL [facility] Comment: Supplemental ranges: <140 mg/dL before meals <180 mg/dL all other times of the day Blood 03/27/2024 12:0 4 PM EDT 03/27/2024 12:04 PM EDT Rudi Hernandez MD POINT OF CARE TEST O RDLIAT Performing Organization Address City/[facility]/ZIP Co de Phone Number [facility] [place] [address] * POCT Glucose (03/27/2024 8:00 AM EDT) Glucose, POC 154 65 - 199 mg/dL [facility] Comment: Supplemental ranges: <140 mg/dL before meals <180 mg/dL all other times of the day Blood 03/27/2024 8:00 AM EDT 03/27/2024 8:00 AM EDT Rudi Hernandez MD POINT OF CARE TEST O ELKIN Performing Organization Address [facility] Co de Phone Number [facility] [place] [address] * (ABNORMAL) Basic Metabolic Panel (non-fasting) (03/27/2024 5:22 AM EDT) Glucose 178 65 - 199 mg/dL [facility] Comment:Diabetes: >=200 mg/d L plus symptoms Blood Urea Nitrogen 3(L) 10 - 20 mg/dL [facility] Creatinine 0.70(L) 0.80 - 1.50 mg/dL [facility] Sodium 142 135 - 145 mmol/L [facility] Potassium 3.6 3.5 - 5.0 mmol/L [facility] Comment: Please note: ??Patients with WBC >100,000 may have falsely elevated Potassium levels. ??For accurate Potassium quantification in these patients send serum separator tube (gold top) for subsequent determinations. ??Contact the Clinical Chemistry Laboratory if there are any questions. Chloride 109(H) 98 - 107 mmol/L [facility] Carbon Dioxide 24 22 - 31 mmol/L [facility] Anion Gap 9 5 - 15 mmol/L [facility] Calcium 8.5 8.5 - 10.5 mg/dL [facility] [...] and symptoms in addition to eGFR. Blood 03/27/2024 5:22 AM EDT 03/27/2024 5:35 AM EDT Narrative Resulting Agency Comment Spec In Lab Rudi Hernandez MD CHEMISTRY ORDERABLES Performing Organization Address [facility] de Phone Number [facility] [place] [address] * Phosphorus (03/27/2024 5:22 AM EDT) Phosphorus 2.8 2.5 - 4.5 mg/dL [facility] Blood 03/27/2024 5:22 AM EDT 03/27/2024 5:35 AM EDT Narrative Resulting Agency Comment Spec In Lab Rudi Hernandez MD CHEMISTRY ORDERABLES Performing Organization Address [facility] Co de Phone Number [facility] [place] [address] * Magnesium (03/27/2024 5:22 AM EDT) Magnesium 0.78 0.69 - 1.07 mmol/L [facility] Blood 03/27/2024 5:22 AM EDT 03/27/2024 5:35 AM EDT Narrative Resulting Agency Comment Spec In Lab Rudi Hernandez MD CHEMISTRY ORDERABLES Performing Organization Address [facility]/ZIP Co de Phone Number [facility] [place] [address] * POCT Glucose (03/27/2024 4:53 AM EDT) Glucose, POC 156 65 - 199 mg/dL [facility] Comment: Supplemental ranges: <140 mg/dL before meals <180 mg/dL all other times of the day Blood 03/27/2024 4:53 AM EDT 03/27/2024 4:53 AM EDT Rudi Hernandez MD POINT OF CARE TEST O RDERABLES Performing Organization Address [facility] Co de Phone Number [facility] [place] [address] * Phosphorus (03/27/2024 12:14 AM EDT) Pathologist [facility] Phosphorus 2.8 2.5 - 4.5 mg/dL [facility] Blood 03/27/2024 12:1 4 AM EDT 03/27/2024 12:42 AM EDT Narrative Resulting Agency Comment Spec In Lab Rudi Hernandez MD CHEMISTRY ORDERABLES Performing Organization Address [facility] Co de Phone Number [facility] [place] [address] * Magnesium (03/27/2024 12:14 AM EDT) Pathologist [facility] Magnesium 0.79 0.69 - 1.07 mmol/L [facility] Blood 03/27/2024 12:1 4 AM EDT 03/27/2024 12:42 AM EDT Narrative Resulting Agency Comment Spec In Lab Rudi Hernandez MD CHEMISTRY ORDERABLES Performing Organization Address [facility] Co de Phone Number [facility] [place] [address] * Differential, Automated (03/27/2024 12:14 AM EDT) Neutrophil % 69.7 % [facility] Neutrophil Absolute 3.73 1.70 - 6.10 x10(3)/[facility] LABORATORY Lymph % 17.6 % [facility] Lymphocytes Abs 0.9 0.9 - 3.2 x10(3)/[facility] LABORATORY Monocyte % 9.7 % [facility] Monocyte Abs 0.5 0.3 - 0.9 x10(3)/[facility] LABORATORY Eos % 1.9 % [facility] Eosinophils Abs 0.1 0.0 - 0.4 x10(3)/[facility] LABORATORY Basophil % 0.7 % [facility] Baso Absolute 0.0 0.0 - 0.1 x10(3)/[facility] LABORATORY Immature Gran % 0.40 % [facility] Comment: Immature granulocytes(IG's)percentage and absolute count will include metamyelocytes, myelocytes, and promyelocytes. Blood smears from CBCs yielding IG's will be scanned manually for concordance. If this scan disagrees with the automated IG or if promyelocytes are noted, a manual differential will be performed. Immature Gran Absolute 0.02 0.00 - 0.04 x10(3)/[facility] LABORATORY Blood Venous Draw / Unknown 03/27/2024 12:14 AM EDT 03/27/2024 12:40 AM EDT Narrative Resulting Agency Comment Spec In Lab Janette Asutin MD HEMATOLOGY ORDERABLE S [facility] [place] [address] * (ABNORMAL) Hemogram (03/27/2024 12:14 AM EDT) [facility] White Blood Cell 5.4 4.0 - 9.5 x10(3)/ L [facility] Red Blood Cell 5.08 4.58 - 5.54 x10(6)/[facility] LABORATORY Hemoglobin 12.0(L) 13.7 - 16.5 g/dL [facility] Hematocrit 36.7(L) 40.5 - 48.5 % [facility] Mean Cell Volume 72.2(L) 82.9 - 93.1 fL [facility] Mean Cell Hemoglobin 23.6(L) 27.5 - 32.1 pg [facility] Mean Cell Hemoglobin Concentration 32.7 32.0 - 35.7 g/dL [facility] Platelet 215 145 - 357 x10(3)/mc L [facility] RDW Standard Deviation 41.8 36.0 - 45.0 fL [facility] RDW coefficient of variation 16.3(H) 11.4 - 13.8 % [facility] Mean Platelet Volume 9.8 7.6 - 12.9 [facility] LABORATORY NRBC% auto 0.0 % [facility] NRBC Absolute 0.000 0.000 - 0.000 x10(3)/mc L [facility] Blood Venous Draw / Unknown 03/27/2024 12:14 AM EDT 03/27/2024 12:40 AM EDT Narrative Resulting Agency Comment Spec In Lab Janette Austin MD HEMATOLOGY ORDERABLE S [facility] [place] [address] * Lavender Tube HOLD (03/27/2024 12:14 AM EDT) Lavender Hold Sample in lab. [facility] Blood Venous Draw / Unknown 03/27/2024 12:14 AM EDT 03/27/2024 12:40 AM EDT Chalino Cristina MD HEMATOLOGY ORDERABLE S [facility] [place] [address] * (ABNORMAL) Basic Metabolic Panel (non-fasting) (03/27/2024 12:14 AM EDT) Glucose 154 65 - 199 mg/dL [facility] Comment:Diabetes: >=200 mg/d L plus symptoms Blood Urea Nitrogen 3(L) 10 - 20 mg/dL [facility] Creatinine 0.71(L) 0.80 - 1.50 mg/dL [facility] Sodium 144 135 - 145 mmol/L [facility] Potassium 3.5 3.5 - 5.0 mmol/L [facility] Comment: Please note: ??Patients with WBC >100,000 may have falsely elevated Potassium levels. ??For accurate Potassium quantification in these patients send serum separator tube (gold top) for subsequent determinations. ??Contact the Clinical Chemistry Laboratory if there are any questions. Chloride 111(H) 98 - 107 mmol/L [facility] Carbon Dioxide 23 22 - 31 mmol/L [facility] Anion Gap 10 5 - 15 mmol/L [facility] Calcium 8.5 8.5 - 10.5 mg/dL [facility] Est Glomerular Filtration Rate 112 >=60 mL/min/1. 73 m?? [facility] [...] and symptoms in addition to eGFR. Blood 03/27/2024 12:1 4 AM EDT 03/27/2024 12:39 AM EDT Narrative Resulting Agency Comment Spec In Lab Rudi Hernandez MD CHEMISTRY ORDERABLES [facility] [place] [address] * POCT Glucose (03/27/2024 12:10 AM EDT) Glucose, POC 136 65 - 199 mg/dL [facility] Comment: Supplemental ranges: <140 mg/dL before meals <180 mg/dL all other times of the day Blood 03/27/2024 12:1 0 AM EDT 03/27/2024 12:10 AM EDT Rudi Hernandez MD POINT OF CARE TEST O RDERABLES Performing Organization Address [facility] Co de Phone Number [facility] [place] [address] * Phosphorus (03/26/2024 9:33 PM EDT) Phosphorus 2.8 2.5 - 4.5 mg/dL [facility] Blood 03/26/2024 9:33 PM EDT 03/26/2024 9:37 PM EDT Narrative Resulting Agency Comment Spec In Lab Rudi Hernandez MD CHEMISTRY ORDERABLES Performing Organization Address [facility] Co de Phone Number [facility] [place] [address] * Magnesium (03/26/2024 9:33 PM EDT) Magnesium 0.80 0.69 - 1.07 mmol/L [facility] Blood 03/26/2024 9:33 PM EDT 03/26/2024 9:37 PM EDT Narrative Resulting Agency Comment Spec In Lab Rudi Hernandez MD CHEMISTRY ORDERABLES Performing Organization Address [facility] Co de Phone Number [facility] [place] [address] * POCT Glucose (03/26/2024 8:02 PM EDT) Glucose, POC 128 65 - 199 mg/dL [facility] Comment: Supplemental ranges: <140 mg/dL before meals <180 mg/dL all other times of the day Blood 03/26/2024 8:02 PM EDT 03/26/2024 8:02 PM EDT Rudi Hernandez MD POINT OF CARE TEST O RDERABLES Performing Organization Address [facility] Co de Phone Number [facility] [place] [address] * POCT Glucose (03/26/2024 5:05 PM EDT) Glucose, POC 144 65 - 199 mg/dL [facility] Comment: Supplemental ranges: <140 mg/dL before meals <180 mg/dL all other times of the day Blood 03/26/2024 5:05 PM EDT 03/26/2024 5:05 PM EDT Rudi Hernandez MD POINT OF CARE TEST O RDERABLES Performing Organization Address [facility] Co de Phone Number [facility] [place] [address] * (ABNORMAL) Phosphorus (03/26/2024 4:30 PM EDT) Phosphorus 2.3(L) 2.5 - 4.5 mg/dL [facility] Blood 03/26/2024 4:30 PM EDT 03/26/2024 4:48 PM EDT Narrative Resulting Agency Comment Spec In Lab Rudi Hernandez MD CHEMISTRY ORDERABLES Performing Organization Address [facility] Co de Phone Number [facility] [place] [address] * Magnesium (03/26/2024 4:30 PM EDT) Magnesium 0.81 0.69 - 1.07 mmol/L [facility] Blood 03/26/2024 4:30 PM EDT 03/26/2024 4:48 PM EDT Narrative Resulting Agency Comment Spec In Lab Rudi Hernandez MD CHEMISTRY ORDERABLES [facility] [place] [address] * (ABNORMAL) Basic Metabolic Panel (non-fasting) (03/26/2024 4:30 PM EDT) Glucose 164 65 - 199 mg/dL [facility] Comment:Diabetes: >=200 mg/d L plus symptoms Blood Urea Nitrogen 4(L) 10 - 20 mg/dL [facility] Creatinine 0.66(L) 0.80 - 1.50 mg/dL [facility] Sodium 140 135 - 145 mmol/L [facility] Potassium 3.6 3.5 - 5.0 mmol/L [facility] Comment: Please note: ??Patients with WBC >100,000 may have falsely elevated Potassium levels. ??For accurate Potassium quantification in these patients send serum separator tube (gold top) for subsequent determinations. ??Contact the Clinical Chemistry Laboratory if there are any questions. Chloride 110(H) 98 - 107 mmol/L [facility] Carbon Dioxide 19(L) 22 - 31 mmol/L [facility] Anion Gap 11 5 - 15 mmol/L [facility] Calcium 8.4(L) 8.5 - 10.5 mg/dL [facility] Est Glomerular Filtration Rate 115 >=60 mL/min/1. 73 m?? [facility] [...] and symptoms in addition to eGFR. Blood 03/26/2024 4:30 PM EDT 03/26/2024 4:48 PM EDT Narrative Resulting Agency Comment Spec In Lab Rudi Hernandez MD CHEMISTRY ORDERABLES [facility] [place] [address] * Place PICC Line: Contact Vascular Access Page [id number] Extremity to exclude: No restrictions; Is PICC [...] to the planned procedure. Hand Hygiene: The production control pegboard clerk did perform hand hygiene prior to line insertion. Catheter type: PICC Lot number: [id number] Procedure Technique: Skin was prepped with chlorhexidine. [...] Guidance (IV Team) (03/26/2024 4:02 PM EDT) [employer] WORKSTATION ID [id number] RAD Anatomical Region Laterality Modality N/A Radio [...] who have questions please contact the health vocational childcare teacher that requested your imaging first. ? Electronically signed by: Bryan Machado MD, [facility] ??([phone]), at 03/26/2024 4:17 PM Narrative 03/26/2024 4:17 [...] FINDINGS: Intraprocedural frontal radiograph (final image time [id number]) of the mediastinum demonstrates a right PICC [...] patients who have questions please contactthe health vocational childcare teacher that requested your imaging first. Electronically signed by: Bryan Machado MD, [facility]([phone]), at 03/26/2024 4:17 PM Rudi Hernandez MD IMG FLUORO ORDERABLE S * POCT Glucose (03/26/2024 1:04 PM EDT) [facility] Signature Glucose, POC 126 65 - 199 mg/dL [facility] Comment: Supplemental ranges: <140 mg/dL before meals <180 mg/dL all other times of the day Blood 03/26/2024 1:04 PM EDT 03/26/2024 1:04 PM EDT Rudi Hernandez MD POINT OF CARE TEST O RDERABLES [facility] [place] [address] * (ABNORMAL) Phosphorus (03/26/2024 11:37 AM EDT) [facility] Phosphorus 1.3(Critic al) 2.5 - 4.5 mg/dL [facility] Comment:called by tmp /read back by (yang fajardo)/ 03/26/24 @1247 Blood 03/26/2024 11:3 7 AM EDT 03/26/2024 11:53 AM EDT Narrative Resulting Agency Comment Spec In Lab Rudi Hernandez MD CHEMISTRY ORDERABLES Performing Organization Address City/[facility]/ZIP Co de Phone Number [facility] [place] [address] * Magnesium (03/26/2024 11:37 AM EDT) [facility] Magnesium 0.87 0.69 - 1.07 mmol/L [facility] Blood 03/26/2024 11:3 7 AM EDT 03/26/2024 11:53 AM EDT Narrative Resulting Agency Comment Spec In Lab Rudi Hernandez MD CHEMISTRY ORDERABLES [facility] [place] [address] * (ABNORMAL) Basic Metabolic Panel (non-fasting) (03/26/2024 11:37 AM EDT) [facility] Glucose 176 65 - 199 mg/dL [facility] Comment:Diabetes: >=200 mg/d L plus symptoms Blood Urea Nitrogen 4(L) 10 - 20 mg/dL [facility] Creatinine 0.69(L) 0.80 - 1.50 mg/dL [facility] Sodium 143 135 - 145 mmol/L [facility] Potassium 3.4(L) 3.5 - 5.0 mmol/L [facility] Comment: Please note: ??Patients with WBC >100,000 may have falsely elevated Potassium levels. ??For accurate Potassium quantification in these patients send serum separator tube (gold top) for subsequent determinations. ??Contact the Clinical Chemistry Laboratory if there are any questions. Chloride 113(H) 98 - 107 mmol/L [facility] Carbon Dioxide 21(L) 22 - 31 mmol/L [facility] Anion Gap 9 5 - 15 mmol/L [facility] Calcium 8.7 8.5 - 10.5 mg/dL [facility] [...] and symptoms in addition to eGFR. Blood 03/26/2024 11:3 7 AM EDT 03/26/2024 11:53 AM EDT Narrative Resulting Agency Comment Spec In Lab Rudi Hernandez MD CHEMISTRY ORDERABLES Performing Organization Address [facility]/ZIP Co de Phone Number [facility] [place] [address] * POCT Glucose (03/26/2024 11:36 AM EDT) Glucose, POC 155 65 - 199 mg/dL [facility] Comment: Supplemental ranges: <140 mg/dL before meals <180 mg/dL all other times of the day Blood 03/26/2024 11:3 6 AM EDT 03/26/2024 11:36 AM EDT Rudi Hernandez MD POINT OF CARE TEST O RDERABLES [facility] [place] [address] * POCT Glucose (03/26/2024 10:34 AM EDT) Glucose, POC 180 65 - 199 mg/dL [facility] Comment: Supplemental ranges: <140 mg/dL before meals <180 mg/dL all other times of the day Blood 03/26/2024 10:3 4 AM EDT 03/26/2024 10:34 AM EDT Rudi Hernandez MD POINT OF CARE TEST O RDERABLES [facility] [place] [address] * (ABNORMAL) POCT Glucose (03/26/2024 9:37 AM EDT) Glucose, POC 240(H) 65 - 199 mg/dL [facility] Comment: Supplemental ranges: <140 mg/dL before meals <180 mg/dL all other times of the day Blood 03/26/2024 9:37 AM EDT 03/26/2024 9:37 AM EDT Rudi Hernandez MD POINT OF CARE TEST O RDERABLES [facility] [place] [address] * POCT Glucose (03/26/2024 7:57 AM EDT) Glucose, POC 197 65 - 199 mg/dL [facility] Comment: Supplemental ranges: <140 mg/dL before meals <180 mg/dL all other times of the day Blood 03/26/2024 7:57 AM EDT 03/26/2024 7:57 AM EDT Rudi Hernandez MD POINT OF CARE TEST O RDERABLES [facility] [place] [address] * (ABNORMAL) POCT Glucose (03/26/2024 6:41 AM EDT) Glucose, POC 226(H) 65 - 199 mg/dL [facility] Comment: Supplemental ranges: <140 mg/dL before meals <180 mg/dL all other times of the day Blood 03/26/2024 6:41 AM EDT 03/26/2024 6:41 AM EDT Rudi Hernandez MD POINT OF CARE TEST O RDERABLES Performing Organization Address City/[facility]/ZIP Co de Phone Number [facility] [place] [address] * (ABNORMAL) Phosphorus (03/26/2024 5:19 AM EDT) Phosphorus 1.3(Critic al) 2.5 - 4.5 mg/dL [facility] Comment:called by MANDY /jay zhu ack by Ja Elder / 03/26/24 0615 Blood 03/26/2024 5:19 AM EDT 03/26/2024 5:29 AM EDT Narrative Resulting Agency Comment Spec In Lab Rudi Hernandez MD CHEMISTRY ORDERABLES Performing Organization Address [facility]/ZIP Co de Phone Number [facility] [place] [address] * Magnesium (03/26/2024 5:19 AM EDT) Magnesium 0.76 0.69 - 1.07 mmol/L [facility] Blood 03/26/2024 5:19 AM EDT 03/26/2024 5:29 AM EDT Narrative Resulting Agency Comment Spec In Lab Rudi Hernandez MD CHEMISTRY ORDERABLES Performing Organization Address [facility]/ZIP Co de Phone Number [facility] [place] [address] * (ABNORMAL) Basic Metabolic Panel (non-fasting) (03/26/2024 5:19 AM EDT) Glucose 241(H) 65 - 199 mg/dL [facility] Comment:Diabetes: >=200 mg/d L plus symptoms Blood Urea Nitrogen 5(L) 10 - 20 mg/dL [facility] Creatinine 0.70(L) 0.80 - 1.50 mg/dL [facility] Sodium 138 135 - 145 mmol/L [facility] Potassium 3.3(L) 3.5 - 5.0 mmol/L [facility] Comment: Please note: ??Patients with WBC >100,000 may have falsely elevated Potassium levels. ??For accurate Potassium quantification in these patients send serum separator tube (gold top) for subsequent determinations. ??Contact the Clinical Chemistry Laboratory if there are any questions. Chloride 109(H) 98 - 107 mmol/L [facility] Carbon Dioxide 20(L) 22 - 31 mmol/L [facility] Anion Gap 9 5 - 15 mmol/L [facility] [...] and symptoms in addition to eGFR. Blood 03/26/2024 5:19 AM EDT 03/26/2024 5:29 AM EDT Narrative Resulting Agency Comment Spec In Lab Rudi Hernandez MD CHEMISTRY ORDERABLES [facility] [place] [address] * (ABNORMAL) POCT Glucose (03/26/2024 3:55 AM EDT) Glucose, POC 206(H) 65 - 199 mg/dL [facility] Comment: Supplemental ranges: <140 mg/dL before meals <180 mg/dL all other times of the day Blood 03/26/2024 3:55 AM EDT 03/26/2024 3:55 AM EDT Rudi Hernandez MD POINT OF CARE TEST O RDERABLES Performing Organization Address City/[facility]/ZIP Co de Phone Number [facility] [place] [address] * (ABNORMAL) POCT Glucose (03/26/2024 2:33 AM EDT) Glucose, POC 220(H) 65 - 199 mg/dL [facility] Comment: Supplemental ranges: <140 mg/dL before meals <180 mg/dL all other times of the day Blood 03/26/2024 2:33 AM EDT 03/26/2024 2:33 AM EDT Rudi Hernandez MD POINT OF CARE TEST O RDERABLES Performing Organization Address City/[facility]/ZIP Co de Phone Number [facility] [place] [address] * (ABNORMAL) Differential, Automated (03/26/2024 2:29 AM EDT) Neutrophil % 72.9 % [facility] Neutrophil Absolute 3.32 1.70 - 6.10 x10(3)/mc L [facility] Lymph % 17.8 % [facility] Lymphocytes Abs 0.8(L) 0.9 - 3.2 x10(3)/mc L [facility] Monocyte % 6.4 % [facility] Monocyte Abs 0.3 0.3 - 0.9 x10(3)/mc L [facility] Eos % 1.5 % [facility] Eosinophils Abs 0.1 0.0 - 0.4 x10(3)/[facility] LAB[facility] Basophil % 0.7 % [facility] Baso Absolute 0.0 0.0 - 0.1 x10(3)/[facility] Immature Gran % 0.70 % [facility] Comment: Immature granulocytes(IG's)percentage and absolute count will include metamyelocytes, myelocytes, and promyelocytes. Blood smears from CBCs yielding IG's will be scanned manually for concordance. If this scan disagrees with the automated IG or if promyelocytes are noted, a manual differential will be performed. Immature Gran Absolute 0.03 0.00 - 0.04 x10(3)/[facility] Blood 03/26/2024 2:29 AM EDT 03/26/2024 2:50 AM EDT Narrative Resulting Agency Comment Spec In Lab Janette Austin MD HEMATOLOGY ORDERABLE S [facility] [place] [address] * (ABNORMAL) Hemogram (03/26/2024 2:29 AM EDT) White Blood Cell 4.6 4.0 - 9.5 x10(3)/[facility] Red Blood Cell 5.61(H) 4.58 - 5.54 x10(6)/[facility] Hemoglobin 13.6(L) 13.7 - 16.5 g/dL [facility] Hematocrit 40.7 40.5 - 48.5 % [facility] Mean Cell Volume 72.5(L) 82.9 - 93.1 fL [facility] Mean Cell Hemoglobin 24.2(L) 27.5 - 32.1 pg [facility] Mean Cell Hemoglobin Concentration 33.4 32.0 - 35.7 g/dL [facility] Platelet 220 145 - 357 x10(3)/mc L [facility] RDW Standard Deviation 41.1 36.0 - 45.0 fL [facility] RDW coefficient of variation 16.1(H) 11.4 - 13.8 % [facility] Mean Platelet Volume 9.4 7.6 - 12.9 fL [facility] NRBC% auto 0.0 % [facility] NRBC Absolute 0.000 0.000 - 0.000 x10(3)/mc L [facility] Blood 03/26/2024 2:29 AM EDT 03/26/2024 2:50 AM EDT Narrative Resulting Agency Comment Spec In Lab Janette Austin MD HEMATOLOGY ORDERABLE S Performing Organization Address City/[facility]/ZIP Co de Phone Number [facility] [place] [address] * (ABNORMAL) Phosphorus (03/26/2024 2:29 AM EDT) Phosphorus 1.0(Critic al) 2.5 - 4.5 mg/dL [facility] Comment:called by MANDY /jay ortiz by Traci Santos / 03/26/24 [id number] Blood 03/26/2024 2:29 AM EDT 03/26/2024 2:50 AM EDT Narrative Resulting Agency Comment Spec In Lab Rudi Hernandez MD CHEMISTRY ORDERABLES [facility] [place] [address] * Magnesium (03/26/2024 2:29 AM EDT) Magnesium 0.76 0.69 - 1.07 mmol/L [facility] Blood 03/26/2024 2:29 AM EDT 03/26/2024 2:50 AM EDT Narrative Resulting Agency Comment Spec In Lab Rudi Hernandez MD CHEMISTRY ORDERABLES [facility] [place] [address] * (ABNORMAL) Basic Metabolic Panel (non-fasting) (03/26/2024 2:29 AM EDT) Glucose 281(H) 65 - 199 mg/dL [facility] Comment:Diabetes: >=200 mg/d L plus symptoms Blood Urea Nitrogen 5(L) 10 - 20 mg/dL [facility] Creatinine 0.71(L) 0.80 - 1.50 mg/dL [facility] Sodium 140 135 - 145 mmol/L [facility] Potassium 3.2(L) 3.5 - 5.0 mmol/L [facility] Comment: Please note: ??Patients with WBC >100,000 may have falsely elevated Potassium levels. ??For accurate Potassium quantification in these patients send serum separator tube (gold top) for subsequent determinations. ??Contact the Clinical Chemistry Laboratory if there are any questions. Chloride 110(H) 98 - 107 mmol/L [facility] Carbon Dioxide 19(L) 22 - 31 mmol/L [facility] Anion Gap 11 5 - 15 mmol/L [facility] Calcium 9.0 8.5 - 10.5 mg/dL [facility] Est Glomerular Filtration Rate 112 >=60 mL/min/1. 73 m?? [facility] [...] and symptoms in addition to eGFR. Blood 03/26/2024 2:29 AM EDT 03/26/2024 2:50 AM EDT Narrative Resulting Agency Comment Spec In Lab Rudi Hernandez MD CHEMISTRY ORDERABLES Performing Organization Address [facility] Co de Phone Number [facility] [place] [address] * (ABNORMAL) POCT Glucose (03/26/2024 12:05 AM EDT) Glucose, POC 321(H) 65 - 199 mg/dL [facility] Comment: Supplemental ranges: <140 mg/dL before meals <180 mg/dL all other times of the day Blood 03/26/2024 12:0 5 AM EDT 03/26/2024 12:05 AM EDT Rudi Hernandez MD POINT OF CARE TEST O RDERABLES Performing Organization Address [facility] Co de Phone Number [facility] [place] [address] * (ABNORMAL) Phosphorus (03/25/2024 10:27 PM EDT) Phosphorus 1.2(Critic al) 2.5 - 4.5 mg/dL [facility] Comment:called by MANDY /jay ortiz by Jyoti Nelson / 03/25/24 [id number] Blood 03/25/2024 10:2 7 PM EDT 03/25/2024 10:33 PM EDT Narrative Resulting Agency Comment Spec In Lab Rudi Hernandez MD CHEMISTRY ORDERABLES Performing Organization Address [facility] Co de Phone Number [facility] [place] [address] * Magnesium (03/25/2024 10:27 PM EDT) Magnesium 0.80 0.69 - 1.07 mmol/L [facility] Blood 03/25/2024 10:2 7 PM EDT 03/25/2024 10:33 PM EDT Narrative Resulting Agency Comment Spec In Lab Rudi Hernandez MD CHEMISTRY ORDERABLES [facility] [place] [address] * (ABNORMAL) Basic Metabolic Panel (non-fasting) (03/25/2024 10:27 PM EDT) Glucose 264(H) 65 - 199 mg/dL [facility] Comment:Diabetes: >=200 mg/d L plus symptoms Blood Urea Nitrogen 6(L) 10 - 20 mg/dL [facility] Creatinine 0.73(L) 0.80 - 1.50 mg/dL [facility] Sodium 140 135 - 145 mmol/L [facility] Potassium 3.4(L) 3.5 - 5.0 mmol/L [facility] Comment: Please note: ??Patients with WBC >100,000 may have falsely elevated Potassium levels. ??For accurate Potassium quantification in these patients send serum separator tube (gold top) for subsequent determinations. ??Contact the Clinical Chemistry Laboratory if there are any questions. Chloride 109(H) 98 - 107 mmol/L [facility] Carbon Dioxide 18(L) 22 - 31 mmol/L [facility] Anion Gap 13 5 - 15 mmol/L [facility] Calcium 8.8 8.5 - 10.5 mg/dL [facility] Est Glomerular Filtration Rate 112 >=60 mL/min/1. 73 m?? [facility] [...] and symptoms in addition to eGFR. Blood 03/25/2024 10:2 7 PM EDT 03/25/2024 10:33 PM EDT Narrative Resulting Agency Comment Spec In Lab Rudi Hernandez MD CHEMISTRY ORDERABLES Performing Organization Address [facility]/ZIP Co de Phone Number [facility] [place] [address] * POCT Glucose (03/25/2024 8:11 PM EDT) Glucose, POC 198 65 - 199 mg/dL [facility] Comment: Supplemental ranges: <140 mg/dL before meals <180 mg/dL all other times of the day Blood 03/25/2024 8:11 PM EDT 03/25/2024 8:11 PM EDT Rudi Hernandez MD POINT OF CARE TEST O RDERABLES Performing Organization Address [facility] Co de Phone Number [facility] [place] [address] * (ABNORMAL) POCT Glucose (03/25/2024 6:56 PM EDT) Glucose, POC 212(H) 65 - 199 mg/dL [facility] Comment: Supplemental ranges: <140 mg/dL before meals <180 mg/dL all other times of the day Blood 03/25/2024 6:56 PM EDT 03/25/2024 6:56 PM EDT Rudi Hernandez MD POINT OF CARE TEST O RDERAVANNESSA Performing Organization Address [facility]/ZIP Co de Phone Number [facility] [place] [address] * POCT Glucose (03/25/2024 6:07 PM EDT) Glucose, POC 175 65 - 199 mg/dL [facility] Comment: Supplemental ranges: <140 mg/dL before meals <180 mg/dL all other times of the day Blood 03/25/2024 6:07 PM EDT 03/25/2024 6:07 PM EDT Rudi Hernandez MD POINT OF CARE TEST O ELKIN [facility] [place] [address] * POCT Glucose (03/25/2024 5:08 PM EDT) Glucose, POC 150 65 - 199 mg/dL [facility] Comment: Supplemental ranges: <140 mg/dL before meals <180 mg/dL all other times of the day Blood 03/25/2024 5:08 PM EDT 03/25/2024 5:08 PM EDT Rudi Heranndez MD POINT OF CARE TEST O ELKIN Performing Organization Address [facility]/ZIP Co de Phone Number [facility] [place] [address] * POCT Glucose (03/25/2024 4:04 PM EDT) Glucose, POC 176 65 - 199 mg/dL [facility] Comment: Supplemental ranges: <140 mg/dL before meals <180 mg/dL all other times of the day Blood 03/25/2024 4:04 PM EDT 03/25/2024 4:04 PM EDT Rudi Hernandez MD POINT OF CARE TEST O ELKIN Performing Organization Address City/[facility]/ZIP Co de Phone Number [facility] [place] [address] * (ABNORMAL) Basic Metabolic Panel (non-fasting) (03/25/2024 3:25 PM EDT) Glucose 167 65 - 199 mg/dL [facility] Comment:Diabetes: >=200 mg/d L plus symptoms Blood Urea Nitrogen 9(L) 10 - 20 mg/dL [facility] Creatinine 0.78(L) 0.80 - 1.50 mg/dL [facility] Sodium 142 135 - 145 mmol/L [facility] Potassium 3.0(Criti johnie) 3.5 - 5.0 mmol/L [facility] Comment: called by lokesh/read back by Sterling Jane ??on 03/25/24 @ [id number]. Please note: ??Patients with WBC >100,000 may have falsely elevated Potassium levels. ??For accurate Potassium quantification in these patients send serum separator tube (gold top) for subsequent determinations. ??Contact the Clinical Chemistry Laboratory if there are any questions. Chloride 110(H) 98 - 107 mmol/L [facility] Carbon Dioxide 14(L) 22 - 31 mmol/L [facility] Comment:results rechecked - [facility] Anion Gap 18(H) 5 - 15 mmol/L [facility] Calcium 9.3 8.5 - 10.5 mg/dL [facility] Comment:results rechecked - [facility] Est Glomerular Filtration Rate 109 >=60 mL/min/1. 73 m?? [facility] [...] and symptoms in addition to eGFR. Blood Venous Draw / Unknown 03/25/2024 3:25 PM EDT 03/25/2024 3:50 PM EDT Narrative Resulting Agency Comment Spec In Lab Gary KIM CHEMISTRY ORDERABLES [facility] [place] [address] * POCT Glucose (03/25/2024 3:01 PM EDT) Glucose, POC 149 65 - 199 mg/dL [facility] Comment: Supplemental ranges: <140 mg/dL before meals <180 mg/dL all other times of the day Blood 03/25/2024 3:01 PM EDT 03/25/2024 3:01 PM EDT Rudi Hernandez MD POINT OF CARE TEST O ELKIN [facility] [place] [address] * POCT Glucose (03/25/2024 2:02 PM EDT) Glucose, POC 179 65 - 199 mg/dL [facility] Comment: Supplemental ranges: <140 mg/dL before meals <180 mg/dL all other times of the day Blood 03/25/2024 2:02 PM EDT 03/25/2024 2:02 PM EDT Rudi Hernandez MD POINT OF CARE TEST O ARASHERAVANNESSA Performing Organization Address City/[facility]/ZIP Co de Phone Number [facility] [place] [address] * POCT Glucose (03/25/2024 12:50 PM EDT) Glucose, POC 187 65 - 199 mg/dL [facility] Comment: Supplemental ranges: <140 mg/dL before meals <180 mg/dL all other times of the day Blood 03/25/2024 12:5 0 PM EDT 03/25/2024 12:50 PM EDT Rudi Hernandez MD POINT OF CARE TEST O RDLIAT [facility] [place] [address] * POCT Glucose (03/25/2024 11:18 AM EDT) Glucose, POC 146 65 - 199 mg/dL [facility] Comment: Supplemental ranges: <140 mg/dL before meals <180 mg/dL all other times of the day Blood 03/25/2024 11:1 8 AM EDT 03/25/2024 11:18 AM EDT Rudi Hernandez MD POINT OF CARE TEST O ELKIN [facility] [place] [address] * CT Guided Drain Pancreatic/Peripancreatic (03/25/2024 11:03 AM EDT) Anatomical Region Laterality Modality Computed Tomogra phy Narrative 03/25/2024 10:55 AM EDT INTERVENTIONAL RADIOLOGY PROCEDURE NOTE Procedure: Marii-Pancreatic Abscess Drainage Catheter Placement Indication for Procedure: [...] showed collapse of the collection. Impression: Successful marii-pancreatic abscess drainage catheter placement. Resident/Fellow: Dr. Gary Palmer. Attending: Dr. Joe Quintero. I, Dr. Quintero, was present throughout the procedure. I was present during the intraservice time as documented by the IR Nurse. ?? Rudi Hernandez MD IMG CT ORDERABLES * (ABNORMAL) Anaerobic Culture (03/25/2024 10:00 AM EDT) Anaerobic Culture Many Prevotella buccae(A) [facility] GENER AL ORDERABLES [facility] [place] [address] * (ABNORMAL) Body Fluid Culture, Aerobic (03/25/2024 10:00 AM EDT) Body Fluid Culture Many mixed Gram Negative [...] - GENER AL ORDERABLES Performing Organization Address City/[facility] Co de Phone Number [facility] [place] [address] * Amylase Level Body Fluid Pancreatic Cyst (03/25/2024 10:00 AM EDT) Amylase, Fluid >7,500 unit/L [facility] Comment: Reference intervals are unavailable for this test in body fluids. Comparison of this result with the concentration in blood, serum, or plasma is recommended. This test has not been cleared by the [place] FDA. Performance characteristics of this test for the analysis of body fluids were determined by [facility] in accordance with CLIA requirements. This laboratory is qualified under CLIA to perform high-complexity testing. Amylase BF Type Pancreatic cyst [facility] Pancreatic Cyst 03/25/2024 1 0:00 AM EDT 03/25/2024 11:13 AM EDT Narrative Resulting Agency Comment Spec In Lab Joe Quintero DO BODY FLUIDS AND STOO LS ORDERABLES [facility] [place] [address] * POCT Glucose (03/25/2024 9:46 AM EDT) Glucose, POC 146 65 - 199 mg/dL [facility] Comment: Supplemental ranges: <140 mg/dL before meals <180 mg/dL all other times of the day Blood 03/25/2024 9:46 AM EDT 03/25/2024 9:46 AM EDT Rudi Hernandez MD POINT OF CARE TEST O RDERABLES Performing Organization Address [facility] Co de Phone Number [facility] [place] [address] * POCT Glucose (03/25/2024 8:00 AM EDT) Glucose, POC 171 65 - 199 mg/dL [facility] Comment: Supplemental ranges: <140 mg/dL before meals <180 mg/dL all other times of the day Blood 03/25/2024 8:00 AM EDT 03/25/2024 8:00 AM EDT Rudi Hernandez MD POINT OF CARE TEST O RDERABLES Performing Organization Address [facility] Co de Phone Number [facility] [place] [address] * Lactate, whole blood, send to lab ([facility]) (03/25/2024 6:00 AM EDT) Lactate WB 1.2 0.5 - 2.2 mmol/L [facility] Blood 03/25/2024 6:00 AM EDT 03/25/2024 6:11 AM EDT Narrative Resulting Agency Comment Spec In Lab Rudi Hernandez MD CHEMISTRY ORDERABLES Performing Organization Address [facility]/ZIP Co de Phone Number [facility] [place] [address] * (ABNORMAL) Beta Hydroxybutyrate (03/25/2024 4:35 AM EDT) [facility] Beta-hydroxybuturat e 6.30(H) 0.00 - 0.30 mmol/L [facility] Comment: This test has not been cleared by the [place] FDA. Performance characteristics of this test were determined by [facility] in accordance with CLIA requirements. This laboratory is qualified under CLIA to perform high-complexity testing. Blood Venous Draw / Unknown 03/25/2024 4:35 AM EDT 03/25/2024 4:42 AM EDT Narrative Resulting Agency Comment Spec In Lab Rafi Grimaldo MD CHEMISTRY ORDERABLE S [facility] [place] [address] * (ABNORMAL) Differential, Automated (03/25/2024 4:35 AM EDT) [facility] Neutrophil % 79.4 % [facility] Neutrophil Absolute 7.16(H) 1.70 - 6.10 x10(3)/mc L [facility] Lymph % 10.8 % [facility] Lymphocytes Abs 1.0 0.9 - 3.2 x10(3)/mc L [facility] Monocyte % 8.2 % [facility] Monocyte Abs 0.7 0.3 - 0.9 x10(3)/mc L [facility] Eos % 0.4 % [facility] Eosinophils Abs 0.0 0.0 - 0.4 x10(3)/mc L [facility] Basophil % 0.6 % [facility] Baso Absolute 0.0 0.0 - 0.1 x10(3)/mc L [facility] Immature Gran % 0.60 % [facility] Comment: Immature granulocytes(IG's)percentage and absolute count will include metamyelocytes, myelocytes, and promyelocytes. Blood smears from CBCs yielding IG's will be scanned manually for concordance. If this scan disagrees with the automated IG or if promyelocytes are noted, a manual differential will be performed. Immature Gran Absolute 0.05(H) 0.00 - 0.04 x10(3)/ L [facility] Blood 03/25/2024 4:35 AM EDT 03/25/2024 4:41 AM EDT Narrative Resulting Agency Comment Spec In Lab Janette Austin MD HEMATOLOGY ORDERABLE S [facility] [place] [address] * (ABNORMAL) Hemogram (03/25/2024 4:35 AM EDT) White Blood Cell 9.0 4.0 - 9.5 x10(3)/[facility] Red Blood Cell 5.31 4.58 - 5.54 x10(6)/ L [facility] Hemoglobin 12.7(L) 13.7 - 16.5 g/dL [facility] Hematocrit 39.1(L) 40.5 - 48.5 % [facility] Mean Cell Volume 73.6(L) 82.9 - 93.1 fL [facility] Mean Cell Hemoglobin 23.9(L) 27.5 - 32.1 pg [facility] Mean Cell Hemoglobin Concentration 32.5 32.0 - 35.7 g/dL [facility] Platelet 284 145 - 357 x10(3)/mc L [facility] RDW Standard Deviation 42.4 36.0 - 45.0 [facility] RDW coefficient of variation 16.1(H) 11.4 - 13.8 % [facility] Mean Platelet Volume 9.7 7.6 - 12.9 fL [facility] NRBC% auto 0.0 % [facility] NRBC Absolute 0.000 0.000 - 0.000 x10(3)/mc L [facility] Blood 03/25/2024 4:35 AM EDT 03/25/2024 4:41 AM EDT Narrative Resulting Agency Comment Spec In Lab Janette Austin MD HEMATOLOGY ORDERABLE S [facility] [place] [address] * (ABNORMAL) Basic Metabolic Panel (non-fasting) (03/25/2024 4:35 AM EDT) Glucose 148 65 - 199 mg/dL [facility] Comment:Diabetes: >=200 mg/d L plus symptoms Blood Urea Nitrogen 9(L) 10 - 20 mg/dL [facility] Creatinine 0.62(L) 0.80 - 1.50 mg/dL [facility] Sodium 141 135 - 145 mmol/L [facility] Potassium 3.3(L) 3.5 - 5.0 mmol/L [facility] Comment: Please note: ??Patients with WBC >100,000 may have falsely elevated Potassium levels. ??For accurate Potassium quantification in these patients send serum separator tube (gold top) for subsequent determinations. ??Contact the Clinical Chemistry Laboratory if there are any questions. Chloride 112(H) 98 - 107 mmol/L [facility] Carbon Dioxide 8(Critica l) 22 - 31 mmol/L [facility] Comment:Called by: LOKI, Read back by: JYOTI NELSON, Date/Time:03/25/24 05:37. Anion Gap 21(H) 5 - 15 mmol/L [facility] Calcium 7.4(L) 8.5 - 10.5 mg/dL [facility] Comment:result rechecked-[place] Est Glomerular Filtration Rate 117 >=60 mL/min/1. 73 m?? [facility] [...] and symptoms in addition to eGFR. Blood 03/25/2024 4:35 AM EDT 03/25/2024 4:41 AM EDT Narrative Resulting Agency Comment Spec In Lab Rudi Hernandez MD CHEMISTRY ORDERABLES Performing Organization Address [facility] Co de Phone Number [facility] [place] [address] * POCT Glucose (03/25/2024 4:31 AM EDT) Glucose, POC 143 65 - 199 mg/dL [facility] Comment: Supplemental ranges: <140 mg/dL before meals <180 mg/dL all other times of the day Blood 03/25/2024 4:31 AM EDT 03/25/2024 4:31 AM EDT Rudi Hernandez MD POINT OF CARE TEST O RDERABLES Performing Organization Address [facility] Co de Phone Number [facility] [place] [address] * POCT Glucose (03/24/2024 11:56 PM EDT) Glucose, POC 136 65 - 199 mg/dL [facility] Comment: Supplemental ranges: <140 mg/dL before meals <180 mg/dL all other times of the day Blood 03/24/2024 11:5 6 PM EDT 03/24/2024 11:56 PM EDT Rudi Hernandez MD POINT OF CARE TEST O RDERABLES Performing Organization Address City/[facility]/ZIP Co de Phone Number [place] [address] * (ABNORMAL) Differential, Automated (03/24/2024 10:21 PM EDT) Neutrophil % 78.0 % [facility] Neutrophil Absolute 7.27(H) 1.70 - 6.10 x10(3)/ L [facility] Lymph % 11.4 % [facility] Lymphocytes Abs 1.1 0.9 - 3.2 x10(3)/ L [facility] Monocyte % 8.9 % [facility] Monocyte Abs 0.8 0.3 - 0.9 x10(3)/[facility] Eos % 0.6 % [facility] Eosinophils Abs 0.1 0.0 - 0.4 x10(3)/[facility] Basophil % 0.5 % [facility] Baso Absolute 0.0 0.0 - 0.1 x10(3)/[facility] Immature Gran % 0.60 % [facility] Comment: Immature granulocytes(IG's)percentage and absolute count will include metamyelocytes, myelocytes, and promyelocytes. Blood smears from CBCs yielding IG's will be scanned manually for concordance. If this scan disagrees with the automated IG or if promyelocytes are noted, a manual differential will be performed. Immature Gran Absolute 0.06(H) 0.00 - 0.04 x10(3)/ L [facility] Blood 03/24/2024 10:2 1 PM EDT 03/24/2024 10:43 PM EDT Narrative Resulting Agency Comment Spec In Lab Janette Austin MD HEMATOLOGY ORDERABLE S [facility] [place] [address] * (ABNORMAL) Hemogram (03/24/2024 10:21 PM EDT) White Blood Cell 9.3 4.0 - 9.5 x10(3)/ L [facility] Red Blood Cell 5.86(H) 4.58 - 5.54 x10(6)/mc L [facility] Hemoglobin 14.0 13.7 - 16.5 g/dL [facility] Hematocrit 44.0 40.5 - 48.5 % [facility] Mean Cell Volume 75.1(L) 82.9 - 93.1 fL [facility] Mean Cell Hemoglobin 23.9(L) 27.5 - 32.1 pg [facility] Mean Cell Hemoglobin Concentration 31.8(L) 32.0 - 35.7 g/dL [facility] Platelet 309 145 - 357 x10(3)/[facility] LABOR[facility] RDW Standard Deviation 43.0 36.0 - 45.0 [facility] RDW coefficient of variation 16.2(H) 11.4 - 13.8 % [facility] Mean Platelet Volume 9.8 7.6 - 12.9 [facility] NRBC% auto 0.0 % [facility] NRBC Absolute 0.000 0.000 - 0.000 x10(3)/[facility] Blood 03/24/2024 10:2 1 PM EDT 03/24/2024 10:43 PM EDT Narrative Resulting Agency Comment Spec In Lab Janette Austin MD HEMATOLOGY ORDERABLE S [facility] [place] [address] * (ABNORMAL) Basic Metabolic Panel (non-fasting) (03/24/2024 10:21 PM EDT) Glucose 143 65 - 199 mg/dL [facility] Comment:Diabetes: >=200 mg/d L plus symptoms Blood Urea Nitrogen 11 10 - 20 mg/dL [facility] Creatinine 0.79(L) 0.80 - 1.50 mg/dL [facility] Sodium 137 135 - 145 mmol/L [facility] Potassium 3.8 3.5 - 5.0 mmol/L [facility] Comment: Please note: ??Patients with WBC >100,000 may have falsely elevated Potassium levels. ??For accurate Potassium quantification in these patients send serum separator tube (gold top) for subsequent determinations. ??Contact the Clinical Chemistry Laboratory if there are any questions. Chloride 105 98 - 107 mmol/L [facility] Carbon Dioxide 11(L) 22 - 31 mmol/L [facility] Anion Gap 21(H) 5 - 15 mmol/L [facility] Calcium 8.4(L) 8.5 - 10.5 mg/dL [facility] Est Glomerular Filtration Rate 109 >=60 mL/min/1. 73 m?? [facility] [...] and symptoms in addition to eGFR. Blood 03/24/2024 10:2 1 PM EDT 03/24/2024 10:43 PM EDT Narrative Resulting Agency Comment Spec In Lab Rudi Hernandez MD CHEMISTRY ORDERABLES [facility] [place] [address] * (ABNORMAL) Phosphorus (03/24/2024 10:21 PM EDT) Phosphorus 2.4(L) 2.5 - 4.5 mg/dL [facility] Blood 03/24/2024 10:2 1 PM EDT 03/24/2024 10:43 PM EDT Narrative Resulting Agency Comment Spec In Lab Rudi Hernandez MD CHEMISTRY ORDERABLES Performing Organization Address [facility] de Phone Number [facility] [place] [address] * Magnesium (03/24/2024 10:21 PM EDT) Magnesium 0.83 0.69 - 1.07 mmol/L [facility] Blood 03/24/2024 10:2 1 PM EDT 03/24/2024 10:43 PM EDT Narrative Resulting Agency Comment Spec In Lab Rudi Hernandez MD CHEMISTRY ORDERABLES Performing Organization Address [facility] Phone Number [facility] [place] [address] * POCT Glucose (03/24/2024 9:17 PM EDT) Glucose, POC 140 65 - 199 mg/dL [facility] Comment: Supplemental ranges: <140 mg/dL before meals <180 mg/dL all other times of the day Blood 03/24/2024 9:17 PM EDT 03/24/2024 9:17 PM EDT Rudi Hernandez MD POINT OF CARE TEST O RDERABLES Performing Organization Address [facility] de Phone Number [facility] [place] [address] * Request For 2nd Read CT Abdomen & Pelvis (03/24/2024 7:48 PM EDT) WORKSTATION ID [id number] RAD Anatomical Region Laterality Modality Abdomen, Pelvis [...] who have questions please contact the health vocational childcare teacher that requested your imaging first. ? Electronically signed by: Ilana Mirza MD, [facility] ([phone]), at 03/25/2024 9:19 AM Narrative 03/25/2024 9:19 AM EDT EXAMINATION: REQUEST FOR 2ND READ CT ABDOMEN AND PELVIS CLINICAL HISTORY: s/p Whipple w/ po intolerance, leukocytosis, tachycardia, hypoT - c/f acute findings, ?fluid collection or abscess; Sending Institution [facility]; Date of exam 20240324; I believe [...] c/f acute findings, ?fluid collection or abscess; [facility]; Date of exam 20240324; I believe [...] [place] hepatis measures 4 x 3.6 cm ([id number] image 28). GALLBLADDER/BILIARY TREE: Status post cholecystectomy. [...] patients who have questions please contactthe health vocational childcare teacher that requested your imaging first. Electronically signed by: Ilana Mirza MD, [facility]([phone]), at 03/25/2024 9:19 AM Rudi Hernandez MD IMG OUTSIDE INTERPRE TATION ORDERABLES documented in this encounter Visit Diagnoses Diagnosis Perihepatic abscess- Primary Peritoneal abscess Perihepatic abscess Peritoneal abscess Duodenal adenocarcinoma Malignant neoplasm of duodenum Obesity due to excess calories with serious comorbidity, unspecified classification Severe protein-calorie malnutrition Other severe protein-calorie malnutrition Severe protein-calorie malnutrition Other severe protein-calorie malnutrition Perihepatic abscess Peritoneal abscess Duodenal adenocarcinoma Malignant neoplasm of duodenum Obesity due to excess calories with serious comorbidity, unspecified classification Perihepatic abscess Peritoneal abscess Duodenal adenocarcinoma Malignant neoplasm of duodenum documented in this encounter Admitting Diagnoses Diagnosis Perihepatic abscess Peritoneal abscess documented in this encounter Administered Medications Inactive Administered Medications - up to 3 most recent administrations Medication Order MAR Action Action Date Dose Rate Site acetaminophen (Ofirmev) (1,000 mg/100 mL) infusion 1,000 mg 1,000 mg, Intravenous, at 400 mL/hr, Administer over 15 Minutes, EVERY 8 HOURS SCHEDULED, 3 doses, First dose on Aline 03/25/24 at 1700, Last dose on Fri03/26/24 at 0600, Maximum dose of acetaminophen is 4,000 mg from all sources in 24 hours. When ordered for pain, acetaminophen should be given even when other ordered pain medications are indicated., Routine, Is ketorolac (Toradol) IV contraindicated? Yes, Can this patient tolerate oral medications or suppositories? No Given 03/26/2024 5:00 AM EDT 1,000 mg 400 mL/hr Given 03/25/2024 8:14 PM EDT 1,000 mg 400 mL/hr Given 03/25/2024 4:18 PM EDT 1,000 mg 400 mL/hr acetaminophen (Ofirmev) (1,000 mg/100 mL) infusion 1,000 mg 1,000 mg, Intravenous, at 400 mL/hr, Administer over 15 Minutes, EVERY 8 HOURS SCHEDULED, 3 doses, First dose on Fri03/26/24 at 0900, Last dose on Fri03/26/24 at 1800, Maximum dose of acetaminophen is 4,000 mg from all sources in 24 hours. When ordered for pain, acetaminophen should be given even when other ordered pain medications are indicated., Routine, Is ketorolac (Toradol) IV contraindicated? Yes, Can this patient tolerate oral medications or suppositories? No Given 03/27/2024 1:28 AM EDT 1,000 mg 400 mL/hr Given 03/26/2024 5:27 PM EDT 1,000 mg 400 mL/hr Given 03/26/2024 10:33 AM EDT 1,000 mg 400 mL/hr acetaminophen (Ofirmev) (1,000 mg/100 mL) infusion 1,000 mg 1,000 mg, Intravenous, at 400 mL/hr, Administer over 15 Minutes, EVERY 8 HOURS SCHEDULED, 4 doses, First dose (after last reorder) on 03/27/24 at 0900, Last dose on Fri03/28/24 at 0900, Maximum dose of acetaminophen is 4,000 mg from all sources in 24 hours. When ordered for pain, acetaminophen should be given even when other ordered pain medications are indicated., Routine, Is ketorolac (Toradol) IV contraindicated? Yes, Can this patient tolerate oral medications or suppositories? No Given 03/28/2024 8:24 AM EDT 1,000 mg 400 mL/hr Given 03/28/2024 12:20 AM EDT 1,000 mg 400 mL/hr Given 03/27/2024 2:53 PM EDT 1,000 mg 400 mL/hr acetaminophen (Ofirmev) (1,000 mg/100 mL) infusion 1,000 mg 1,000 mg, Intravenous, at 400 mL/hr, Administer over 15 Minutes, EVERY 8 HOURS SCHEDULED, 3 doses, First dose (after last reorder) on Fri03/29/24 at 1015, Last dose on Fri03/30/24 at 0100, Maximum dose of acetaminophen is 4,000 mg from all sources in 24 hours. When ordered for pain, acetaminophen should be given even when other ordered pain medications are indicated., Routine, Is ketorolac (Toradol) IV contraindicated? Yes, Can this patient tolerate oral medications or suppositories? No Given 03/30/2024 12:18 AM EDT 1,000 m g 400 mL/hr Given 03/29/2024 4:24 PM EDT 1,000 mg 400 mL/hr Given 03/29/2024 11:26 AM EDT 1,000 mg 400 mL/hr acetaminophen (Ofirmev) (1,000 mg/100 mL) infusion 1,000 mg 1,000 mg, Intravenous, at 400 mL/hr, Administer over 15 Minutes, EVERY 8 HOURS SCHEDULED, 3 doses, First dose (after last reorder) on Fri03/30/24 at 1030, Last dose on Fri03/31/24 at 0100, Maximum dose of acetaminophen is 4,000 mg from all sources in 24 hours. When ordered for pain, acetaminophen should be given even when other ordered pain medications are indicated., Routine, Is ketorolac (Toradol) IV contraindicated? Yes, Can this patient tolerate oral medications or suppositories? No Given 03/30/2024 11:52 AM EDT 1,000 mg 400 mL/hr acetaminophen (Tylenol) tablet 650 mg 650 mg, Oral, ONCE PRN, 1 dose, Starting on 03/28/24 at 2226, Until 03/28/24 at 2230, Pain, Headaches, Fever, Maximum dose of acetaminophen is 4,000 mg from all sources in 24 hours. When ordered for pain, acetaminophen should be given even when other ordered pain medications are indicated., Routine Given 03/28/2024 10:30 PM EDT 650 mg acetaminophen (Tylenol) tablet 650 mg 650 mg, Oral, EVERY 8 HOURS PRN, Starting on Fri03/31/24 at 0744, Until Aline 04/01/24 at 1724, Pain, Maximum dose of acetaminophen is 4,000 mg from all sources in 24 hours. When ordered for pain, acetaminophen should be given even when other ordered pain medications are indicated., Routine Adult TPN Central, Intravenous, at 100 mL/hr, Continuous (TPN), 2 doses, First dose on Sat 13/24 at 1800, Last dose on Fri03/28/24 at 1800, Administer over 24 Hours New Bag 03/28/2024 5:23 PM EDT 100 mL/hr New Bag 03/27/2024 5:51 PM EDT 100 mL/hr Adult TPN Central, Intravenous, at 100 mL/hr, Continuous (TPN), 1 dose, First dose (after last reorder) on Fri03/29/24 at 1800, Last dose on Fri03/29/24 at 1800, Administer over 24 Hours New Bag 03/29/2024 5:50 PM EDT 100 mL/hr Adult TPN Central, Intravenous, at 83.3 mL/hr, Continuous (TPN), 1 dose, First dose (after last reorder) on Fri03/30/24 at 1800, Last dose on Fri03/30/24 at 1800, Administer over 24 Hours New Bag 03/30/2024 5:04 PM EDT 83.3 mL/hr Adult TPN Central, Intravenous, at 83.3 mL/hr, Continuous (TPN), 1 dose, First dose (after last reorder) on Fri03/31/24 at 1800, Last dose on Fri03/31/24 at 1800, Administer over 24 Hours New Bag 03/31/2024 5:09 PM EDT 83.3 mL/hr amoxicillin-clavulanate (Augmentin) 500-125 mg per tablet 2 tablet 2 tablet, Oral, 3 TIMES DAILY, First dose on Fri03/31/24 at 0900, Until Discontinued, Routine, Indication 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): GI/Intra-abdominal Given 04/01/2024 8:19 AM EDT 2 tablets Given 03/31/2024 9:35 PM EDT 2 tablets Given 03/31/2024 2:52 PM EDT 2 tablets bisacodyL (Dulcolax) suppository 10 mg 10 mg, Rectal, ONCE, 1 dose, On Fri03/30/24 at 0830, Routine Given 03/30/2024 8:39 AM EDT 10 mg cefTRIAXone (Rocephin) 1 g vial attach to sodium chloride 0.9% 50 mL Mini-Bag Plus 1 g, Intravenous, EVERY 24 HOURS, First dose on Fri03/24/24 at 2330, Until Discontinued, Administer over 30 Minutes, Indication 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): GI/Intra-abdominal New Bag 03/30/2024 11:51 PM EDT 1 g 100 mL/hr New Bag 03/29/2024 11:39 PM EDT 1 g 100 mL/hr New Bag 03/29/2024 12:18 AM EDT 1 g 100 mL/hr citalopram (CeleXA) tablet 10 mg 10 mg, Oral, DAILY, First dose on Fri03/28/24 at 0900, Until Discontinued, Routine Given 03/28/2024 8:21 AM EDT 10 mg citalopram (CeleXA) tablet 40 mg 40 mg, Oral, DAILY, First dose (after last modification) on Fri03/29/24 at 0900, Until Discontinued, Routine Given 04/01/2024 8:18 AM EDT 40 mg Given 03/31/2024 8:23 AM EDT 40 mg Given 03/30/2024 8:39 AM EDT 40 mg dextrose 10% in lactated ringers with potassium chloride 20 mEq infusion at 0-250 mL/hr, Intravenous, CONTINUOUS, Starting on Aline 03/25/24 at 1100, Until Fri03/26/24 at 1227, There are two IV fluid orders for this patient. The TOTAL RATE for IV fluids combined is 250 mL/hr. If blood glucose is greater than 250: - Infuse LR with KCl 20 mEq/L at full rate of 250 mL/hr. AND - Hold infusion of D10 + LR with KCl 20 mEq/L. If blood glucose is between 150 - 250: - Infuse LR with KCl 20 mEq/L at 125 mL/hr . AND - Infuse D10 + LR with KCl 20 mEq/L at 125 mL/hr. If blood glucose is less than 150: - HOLD infusion of LR with KCl 20 mEq/L. AND - Infuse D10 + LR with KCl 20 mEq/L at full rate of 250 mL/hr. Rate/Dose Verify 03/26/2024 10:44 AM EDT 125 mL/hr 125 mL/hr New Bag 03/26/2024 8:29 AM EDT 125 mL/hr 125 mL/hr Rate/Dose Verify 03/26/2024 4:00 AM EDT 125 mL/hr 125 mL/ hr dextrose 10% infusion 250 mL, at 1,000 mL/hr, Intravenous, EVERY 15 MIN PRN, Starting on Fri03/26/24 at 1224, Until Aline 04/01/24 at 1724, For BG 50-70 mg/dL: Oral treatment preferred: If able to drink, give 120 mL juice or regular (not diet) soda OR if NPO, give 15 gram glucose 40% oral gel massaged into buccal mucosa OR if unconscious or uncooperative, give 25 gram (250 mL) dextrose 10% IV over 15 minutes per protocol OR, if no IV access, 1 mg glucagon IM. For BG less than 50 mg/dL: Oral treatment preferred: If able to drink, give 240 mL juice or regular (not diet) soda OR if NPO, give 30 gram glucose 40% oral gel massaged in buccal mucosa OR if unconscious or uncooperative, give 25 gram (250 mL) dextrose 10% IV over 15 minutes per protocol OR, if no IV access, 1 mg glucagon IM. Recheck BG in 15 minutes. May repeat juice/soda, gel, dextrose or glucagon once per episode. Notify provider if hypoglycemia does not resolve after two treatments. Providers should consider the following: administering longer-acting treatments for the duration of active insulin or hypoglycemia agent for persistent hypoglycemia and re-evaluating active insulin orders before administering the next dose. fentaNYL (pf) (50 mcg/mL) multi-dose injection 25-50 mcg 25-50 mcg, Intravenous, EVERY 3 MIN PRN, Starting on Aline 03/25/24 at 0941, Until Aline 03/25/24 at 1115, Pain, per unit protocol, For use in [...] mcg/dose, 250 mcg/hour, Angio/IR (Intra-Procedure), Routine Given 03/25/2024 10:40 AM EDT 25 mcg Given 03/25/2024 10:21 AM EDT 25 mcg Given 03/25/2024 10:12 AM EDT 50 mcg fluconazole (Diflucan) 400 mg in sodium chloride 0.9% 200 mL infusion 400 mg, Intravenous, EVERY 24 HOURS, First dose (after last modification) on Fri03/30/24 at 1800, Until Discontinued, Administer over 120 Minutes, Indication 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): GI/Intra-abdominal, Restricted Antibiotic: Please indicate the most appropriate choice: ID Approval by Maxi Medrano New Bag 03/30/2024 6:25 PM EDT 400 mg 100 mL/hr fluconazole (Diflucan) 800 mg in sodium chloride 0.9% 400 mL (2 x 400 mg/200 mL bags) 800 mg, Intravenous, EVERY 24 HOURS, 1 dose, First dose on Fri03/29/24 at 1800, Administer over 120 Minutes, Total dose of fluconazole 800 mg, administered using two 400 mg/200 mL bags. Infuse each fluconazole 400 mg/200 mL bag over 120 minutes (100 ml/hr) for total infusion time of 240 minutes. On the MAR, document administration of first bag using New Bag (1 of 2) MAR action for dose of 400 mg. Document second bag using Next Bag (2 of 2) MAR action for another dose of 400 mg (equalling total of 800 mg), Indication 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): GI/Intra-abdominal, Restricted Antibiotic: Please indicate the most appropriate choice: ID Approval by Maxi Medrano New Bag (1 of 2) 03/29/2024 5:48 PM EDT 800 mg 100 mL/hr fluconazole (Diflucan) tablet 600 mg 600 mg, Oral, DAILY, First dose on Fri03/31/24 at 0900, Until Discontinued, DO NOT SPLIT, CRUSH OR OPEN, Routine, Indication 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): GI/Intra-abdominal Given 04/01/2024 8:19 AM EDT 600 mg Given 03/31/2024 8:23 AM EDT 600 mg gabapentin (Neurontin) capsule 600 mg 600 mg, Oral, 3 TIMES DAILY, First dose on Fri03/28/24 at 0900, Until Discontinued Given 03/31/2024 9:35 PM EDT 600 mg Given 03/30/2024 10:13 PM EDT 600 mg Given 03/29/2024 9:00 PM EDT 600 mg gabapentin (Neurontin) capsule 600 mg 600 mg, Oral, 3 TIMES DAILY, First dose on Fri03/25/24 at 0000, Until Discontinued, Routine Given 03/26/2024 8:59 AM EDT 600 mg Given 03/25/2024 8:14 PM EDT 600 mg Given 03/25/2024 8:12 AM EDT 600 mg gabapentin (Neurontin) capsule 600 mg 600 mg, Oral, 3 TIMES DAILY PRN, Starting on 03/27/24 at 0915, Until Aline 04/01/24 at 1724, nueropathy, Routine Given 03/27/2024 8:46 PM EDT 600 mg glucagon (Glucagen) (1 mg/mL) injection solution 1 mg 1 mg, Intramuscular, EVERY 15 MIN PRN, Starting on 03/26/24 at 1224, Until Aline 04/01/24 at 1724, Low blood sugar, For BG 50-70 mg/dL: Oral treatment preferred: If able to drink, give 120 mL juice or regular (not diet) soda OR if NPO, give 15 gram glucose 40% oral gel massaged into buccal mucosa OR if unconscious or uncooperative, give 25 gram (250 mL) dextrose 10% IV over 15 minutes per protocol OR, if no IV access, 1 mg glucagon IM. For BG less than 50 mg/dL: Oral treatment preferred: If able to drink, give 240 mL juice or regular (not diet) soda OR if NPO, give 30 gram glucose 40% oral gel massaged in buccal mucosa OR if unconscious or uncooperative, give 25 gram (250 mL) dextrose 10% IV over 15 minutes per protocol OR, if no IV access, 1 mg glucagon IM. Recheck BG in 15 minutes. May repeat juice/soda, gel, dextrose or glucagon once per episode. Notify provider if hypoglycemia does not resolve after two treatments. Providers should consider the following: administering longer-acting treatments for the duration of active insulin or hypoglycemia agent for persistent hypoglycemia and re-evaluating active insulin orders before administering the next dose. , Routine glucose (Glutose) 40% oral geL 15-30 g of glucose, Buccal, EVERY 15 MIN PRN, Starting on 03/26/24 at 1224, Until Aline 04/01/24 at 1724, Low blood sugar, For BG 50-70 mg/dL: Oral treatment preferred: If able to drink, give 120 mL juice or regular (not diet) soda OR if NPO, give 15 gram glucose 40% oral gel massaged into buccal mucosa OR if unconscious or uncooperative, give 25 gram (250 mL) dextrose 10% IV over 15 minutes per protocol OR, if no IV access, 1 mg glucagon IM. For BG less than 50 mg/dL: Oral treatment preferred: If able to drink, give 240 mL juice or regular (not diet) soda OR if NPO, give 30 gram glucose 40% oral gel massaged in buccal mucosa OR if unconscious or uncooperative, give 25 gram (250 mL) dextrose 10% IV over 15 minutes per protocol OR, if no IV access, 1 mg glucagon IM. Recheck BG in 15 minutes. May repeat juice/soda, gel, dextrose or glucagon once per episode. Notify provider if hypoglycemia does not resolve after two treatments. Providers should consider the following: administering longer-acting treatments for the duration of active insulin or hypoglycemia agent for persistent hypoglycemia and re-evaluating active insulin orders before administering the next dose. 1 tube of Glutose-15 contains 15 grams of glucose (net weight of tube = 37.5 grams.), Routine glycerin (adult) suppository 1 suppository 1 suppository, Rectal, ONCE, 1 dose, On Fri03/27/24 at 1915, Routine Given 03/28/2024 6:21 AM EDT 1 suppositor y heparin (porcine) (5,000 units/1 mL) subcutaneous injection 5,000 Units 5,000 Units, Subcutaneous, EVERY 8 HOURS SCHEDULED, First dose on Fri03/24/24 at 2245, Until Discontinued, Routine Given 04/01/2024 1:08 PM EDT 5,000 Units Given 04/01/2024 6:39 AM EDT 5,000 Units Given 03/31/2024 9:36 PM EDT 5,000 Units insulin glargine-ygfn (Semglee) (100 unit/mL) subcutaneous injection vial 10 Units 10 Units, Subcutaneous, DAILY, First dose on Fri03/26/24 at 1315, Until Discontinued, Routine Given 04/01/2024 8:18 AM EDT 10 Units Given 03/31/2024 8:24 AM EDT 10 Units Given 03/30/2024 8:40 AM EDT 10 Units insulin lispro (HumaLOG;Admelog) (100 unit/mL) subcutaneous injection vial 0-11 Units 0-11 Units, Subcutaneous, 3 TIMES DAILY WITH MEALS, First dose on Fri03/31/24 at 1230, Until Discontinued, MEAL [employer] Give 1 unit: 8 grams of carbohydrate Hold if not eating or if BG less than 70 mg/dL., Routine Given 04/01/2024 1:07 PM EDT 4 Units Given 04/01/2024 8:25 AM EDT 3 Units Given 03/31/2024 5:16 PM EDT 3 Units insulin lispro (HumaLOG;Admelog) (100 unit/mL) subcutaneous injection vial 1-4 Units 1-4 Units, Subcutaneous, EVERY 4 HOURS SCHEDULED, First dose on Fri03/25/24 at 0000, Until Discontinued, CORRECTION BOLUS [1-4 Units] Sensitive Sliding Scale (BG in mg/dL): Correction factor 40 (1 unit of insulin is expected to drop the glucose 40 mg/dL) ?? BG 160 - 200 Give 1 unit BG 201 - 240 Give 2 units BG 241 - 280 Give 3 units and recheck BG in 2 hours. BG greater than 280, give 4 units and recheck BG in 2 hours. - If recheck BG is LESS than 280, give no insulin and resume schedule - If recheck BG is GREATER than or EQUAL to 280, give 4 units and repeat BG in 2 hours (no more than 3 times)??& call for new insulin orders. DO NOT hold if NPO, unless specifically directed to do so by written order. ?? Per Inpatient Subcutaneous Insulin Policy, recheck a BG of greater than 240 mg/dL in 2 hours., Routine Given 03/26/2024 4:26 AM EDT 2 Units Given 03/26/2024 12:06 AM EDT 4 Units Given 03/25/2024 8:13 AM EDT 1 Units insulin lispro (HumaLOG;Admelog) (100 unit/mL) subcutaneous injection vial 1-6 Units 1-6 Units, Subcutaneous, EVERY 4 HOURS SCHEDULED, First dose on Fri03/26/24 at 1330, Until Discontinued, CORRECTION BOLUS [1-6 Units] Moderate Sliding Scale (BG in mg/dL): Correction factor 20 (1 unit of insulin is expected to drop the glucose 20 mg/dL) BG 140 - 160 Give 1 unit BG 161 - 180 Give 2 units BG 181 - 200 Give 3 units BG 201 - 220 Give 4 units BG 221 - 240 Give 5 units BG greater than 240, give 6 units and recheck BG in 2 hours. - If recheck BG is LESS than 240, give no insulin and resume schedule. - If recheck BG is GREATER than or EQUAL to 240, give 6 units and repeat BG in 2 hours (no more than 3 times) & call for new insulin orders. DO NOT hold if NPO, unless specifically directed to do so by written order. ?? Per Inpatient Subcutaneous Insulin Policy, recheck a BG of greater than 240 mg/dL in 2 hours., Routine Given 03/28/2024 8:29 AM EDT 3 Units Given 03/28/2024 4:15 AM EDT 3 Units Given 03/28/2024 12:37 AM EDT 3 Units insulin lispro (HumaLOG;Admelog) (100 unit/mL) subcutaneous injection vial 1-6 Units 1-6 Units, Subcutaneous, EVERY 4 HOURS SCHEDULED, First dose on Fri03/28/24 at 1200, Until Discontinued, CORRECTION BOLUS [1-6 Units] Moderate Sliding Scale (BG in mg/dL): Correction factor 20 (1 unit of insulin is expected to drop the glucose 20 mg/dL) BG 140 - 160 Give 1 unit BG 161 - 180 Give 2 units BG 181 - 200 Give 3 units BG 201 - 220 Give 4 units BG 221 - 240 Give 5 units BG greater than 240, give 6 units and recheck BG in 2 hours. - If recheck BG is LESS than 240, give no insulin and resume schedule. - If recheck BG is GREATER than or EQUAL to 240, give 6 units and repeat BG in 2 hours (no more than 3 times) & call for new insulin orders. DO NOT hold if NPO, unless specifically directed to do so by written order. ?? Per Inpatient Subcutaneous Insulin Policy, recheck a BG of greater than 240 mg/dL in 2 hours., Routine Given 04/01/2024 1:07 PM EDT 3 Units Given 04/01/2024 8:24 AM EDT 1 Units Given 04/01/2024 3:42 AM EDT 3 Units insulin lispro (HumaLOG;Admelog) (100 unit/mL) subcutaneous injection vial 3 Units 3 Units, Subcutaneous, EVERY 4 HOURS SCHEDULED, First dose (after last modification) on Fri03/28/24 at 1200, Until Discontinued, TPN insulin Please administer 3 units lispro Q 4 hours to cover carbohydrates in TPN. HOLD if TPN held. HOLD if BGS are less than 80. , Routine Given 03/29/2024 4:25 AM EDT 3 Units Given 03/29/2024 12:19 AM EDT 3 Units Given 03/28/2024 9:14 PM EDT 3 Units insulin lispro (HumaLOG;Admelog) (100 unit/mL) subcutaneous injection vial 5 Units 5 Units, Subcutaneous, EVERY 4 HOURS SCHEDULED, 3 doses, First dose (after last modification) on Fri03/29/24 at 0845, Last dose on Fri03/29/24 at 1600, TPN insulin Please administer 5 units lispro Q 4 hours to cover carbohydrates in TPN. HOLD if TPN held. HOLD if BGS are less than 80. , Routine Given 03/29/2024 4:33 PM EDT 5 Units Given 03/29/2024 12:36 PM EDT 5 Units Given 03/29/2024 9:10 AM EDT 5 Units insulin regular (Myxredlin) (1 unit/mL) bolus from infusion 11.7 Units 11.7 Units (rounded from 11.65 Units = 0.1 Units/kg ? 116.5 kg), Intravenous, ONCE PRN, 1 dose, Starting on Fri03/25/24 at 1009, Until Fri03/26/24 at 1003, Per Protocol, Hyperglycemia - see infusion admin instr, See insulin infusion admin instructions for bolus guidance., Routine Bolus from Bag 03/26/2024 10:03 AM EDT 11.7 Units insulin regular (Myxredlin) (1 unit/mL) in sodium chloride 0.9% 100 mL infusion 0-0.1 Units/kg/hr ? 116.5 kg (0-11.65 mL/hr, rounded to 0-11.7 mL/hr), Intravenous, CONTINUOUS, Starting on Fri03/25/24 at 1100, Until Fri03/26/24 at 1226, Initiate insulin infusion at 0.1 units/kg/hr (11.65 units per hr, max rate of 30 units per hr); Hold insulin drip if potassium level is less than 3.3 mMol/L. ?? If GLUCOSE level does not decrease by at least 50 mg/dL from the initial value after the first hour: - Administer bolus 0.1 unit/kg & document on Bolus Dose order. - Continue same infusion rate and follow IV fluids titration. ?? GLUCOSE GREATER THAN OR EQUAL TO 150 mg/dL: - Continue same infusion rate and follow IV fluids titration. ?? GLUCOSE 70 - 149 mg/dL: - DECREASE insulin infusion rate by 50% ONLY ONCE if not already done and follow IV fluids titration. - Notify team if continues to be LESS than 100 mg/dL consecutively x2 readings with the next POC for further adjustments ?? GLUCOSE LESS than 70 mg/dL: - Pause insulin. Treat Hypoglycemia. Recheck blood glucose in 20 minutes. - If glucose is GREATER than 70 mg/dL on Recheck AND anion gap greater than 12, Restart insulin at 50% of prior infusion rate. - Notify team if continues to be LESS than 70 mg/dL with the next POC for further adjustments. ?? GLUCOSE level LESS than 200 mg/dL and anion gap is LESS than 12 and/or BHOB LESS than 1 (RESOLUTION OF DKA) - Notify team to consider transition to basal-bolus insulin. - Discontinue insulin drip 2 hours after initiation of long acting insulin., Routine Rate/Dose Verify 03/26/2024 11:00 AM EDT 0.051 Units/kg/hr 5.9 mL/hr New Bag 03/26/2024 10:56 AM EDT 0.051 Units/kg/hr 5.9 m L/hr New Bag 03/26/2024 8:31 AM EDT 0.051 Units/kg/hr 5.9 mL /hr lactated Ringers 1,000 mL IV bolus Intravenous, ONCE, 1 dose, On Fri03/25/24 at 1800 New Bag 03/25/2024 5:39 PM EDT 1000 mL/hr lactated Ringers 1,000 mL with potassium chloride 20 mEq infusion at 0-250 mL/hr, Intravenous, CONTINUOUS, Starting on Fri03/25/24 at 1100, Until Fri03/26/24 at 1227, There are two IV fluid orders for this patient. The TOTAL RATE for IV fluids combined is 250 mL/hr. If blood glucose is greater than 250: - Infuse LR with KCl 20 mEq/L at full rate of 250 mL/hr. AND - Hold infusion of D10 + LR with KCl 20 mEq/L. If blood glucose is between 150 - 250: - Infuse LR with KCl 20 mEq/L at 125 mL/hr . AND - Infuse D10 + LR with KCl 20 mEq/L at 125 mL/hr. If blood glucose is less than 150: - HOLD infusion of LR with KCl 20 mEq/L. AND - Infuse D10 + LR with KCl 20 mEq/L at full rate of 250 mL/hr. Rate/Dose Verify 03/26/2024 10:44 AM EDT 125 mL/hr 125 mL/hr New Bag 03/26/2024 8:29 AM EDT 125 mL/hr 125 mL/hr Rate/Dose Change 03/26/2024 4:00 AM EDT 100 mL/hr 100 mL/ hr lactated ringers infusion 1,000 mL, at 100 mL/hr, Intravenous, CONTINUOUS, Starting on Fri03/24/24 at 2245, Until 03/27/24 at 1809 Rate/Dose Verify 03/27/2024 5:55 PM EDT 100 mL/hr Rate/Dose Verify 03/27/2024 4:15 PM EDT 100 mL/ hr Rate/Dose Verify 03/27/2024 1:43 PM EDT 100 mL/ hr lidocaine (Glydo) 2 % gel 11 mL 11 mL, Topical (Top), ONCE, 1 dose, On Aline 03/25/24 at 0945, 11 mL for intra-urethral use only, STAT Given 03/25/2024 9:45 AM EDT 11 mLs lidocaine (Xylocaine) 1% (10 mg/mL) injection 10 mg 10 mg, Subcutaneous, ONCE, 1 dose, On Aline 03/25/24 at 1030, For use in Interventional Radiology (IR) only for procedure with direct provider supervision and verbal order., Angio/IR (Intra-Procedure), Routine Given 03/25/2024 10:25 AM EDT 10 mg lidocaine (Xylocaine) 1% (10 mg/mL) injection 3 mg 3 mg (0.3 mL), Subcutaneous, ONCE PRN, 1 dose, Starting on Fri03/24/24 at 2143, Until Aline 04/01/24 at 1724, for discomfort with PIV insertion, Routine lidocaine (Xylocaine) 1% (10 mg/mL) injection 3 mg 3 mg (0.3 mL), Subcutaneous, ONCE PRN, 1 dose, Starting on Fri03/25/24 at 1000, Until Fri04/01/24 at 1724, for discomfort with PIV insertion, Routine zojdog-wgjsjiuv-hzrzbyd DR (Zenpep 20) 20,000-63,000- 84,000 unit per capsule 2 capsule 2 capsule, Oral, 3 TIMES DAILY WITH MEALS, First dose on Fri03/30/24 at 1400, Until Discontinued, Routine Given 04/01/2024 12:31 PM EDT 2 capsule s Given 04/01/2024 8:18 AM EDT 2 capsules Given 03/31/2024 5:14 PM EDT 2 capsules magnesium sulfate 2 g in sterile water 50 mL infusion 2 g, Intravenous, ONCE, 1 dose, On Fri03/26/24 at 0645, Administer over 120 Minutes New Bag 03/26/2024 6:27 AM EDT 2 g 25 mL/hr metoclopramide (Reglan) (5 mg/mL) injection 10 mg 10 mg, Intravenous, 4 TIMES DAILY BEFORE MEALS & NIGHTLY, First dose on Fri03/29/24 at 1400, Until Discontinued, Doses greater than 10mg should be diluted into 50ml NS. Given 04/01/2024 1:08 PM EDT 10 mg Given 04/01/2024 6:40 AM EDT 10 mg Given 03/31/2024 9:36 PM EDT 10 mg metroNIDAZOLE (Flagyl) 500 mg in sodium chloride 0.9% 100 mL infusion 500 mg, Intravenous, EVERY 8 HOURS, First dose on Fri03/25/24 at 0000, Until Discontinued, Administer over 30 Minutes, Indication 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): Anaerobic infection-GI/Intrabdominal New Bag 03/31/2024 12:42 AM EDT 500 mg 200 mL/hr New Bag 03/30/2024 4:24 PM EDT 500 mg 200 mL/hr New Bag 03/30/2024 8:47 AM EDT 500 mg 200 mL/hr midazolam (pf) (Versed) (1 mg/mL) multi-dose injection 0.5-1 mg 0.5-1 mg, Intravenous, EVERY 3 MIN PRN, Starting on Fri03/25/24 at 0941, Until Fri03/25/24 at 1115, Sedation, For use in Interventional Radiology (IR) [...] mg/dose, 5 mg/hour., Angio/IR (Intra-Procedure), Routine Given 03/25/2024 10:21 AM EDT 0.5 mg Given 03/25/2024 10:12 AM EDT 1 mg ondansetron (pf) (Zofran) (2 mg/mL) injection 4 mg 4 mg, Intravenous, EVERY 8 HOURS PRN, Starting on Fri03/24/24 at 2146, Until Aline 04/01/24 at 1724, Nausea, 4 mg,Oral,EVERY 8 HOURS PRN, Nausea,Vomiting If multiple antiemetics are ordered, use ondansetron first. May repeat times one in 30 minutes if ineffective. Given 03/29/2024 1:25 AM EDT 4 mg Given 03/27/2024 9:59 PM EDT 4 mg Given 03/27/2024 12:18 PM EDT 4 mg ondansetron ODT (Zofran-ODT) disintegrating tablet 4 mg 4 mg, Oral, EVERY 8 HOURS PRN, Starting on Fri03/24/24 at 2146, Until Aline 04/01/24 at 1724, Nausea, If multiple antiemetics are ordered, use ondansetron first. PO Preferred. If patient unable to take PO, may give IV if ordered. May repeat times one in 45 minutes if ineffective. , Routine pantoprazole (Protonix) injection 40 mg 40 mg, Intravenous, DAILY, First dose on Fri03/26/24 at 0915, Until Discontinued, Reconstitute with 10 mL of normal saline to a concentration of 4 mg/mL and inject slowly over 2 minutes. Given 03/27/2024 8:42 AM EDT 40 mg Given 03/26/2024 10:33 AM EDT 40 mg pantoprazole EC (Protonix) tablet 40 mg 40 mg, Oral, DAILY, First dose on Fri03/28/24 at 0900, Until Discontinued, Therapeutic substitution to formulary alternative per P&T approved Therapeutic Interchange Policy Given 04/01/2024 8:18 AM EDT 40 m g Given 03/31/2024 8:23 AM EDT 40 mg Given 03/30/2024 8:39 AM EDT 40 mg pantoprazole EC (Protonix) tablet 40 mg 40 mg, Oral, DAILY, First dose on Fri03/25/24 at 0900, Until Discontinued, DO NOT CRUSH OR OPEN, Routine Given 03/25/2024 8:12 AM EDT 40 mg polyethylene glycoL (Miralax) packet 17 g 17 g, Oral, DAILY, First dose on Aline 03/25/24 at 0900, Until Discontinued, Hold for loose stool. , Routine Given 04/01/2024 8:18 AM EDT 17 g Given 03/31/2024 8:22 AM EDT 17 g Given 03/29/2024 8:25 AM EDT 17 g potassium chloride 10 mEq in sterile water 100 mL infusion 10 mEq, Intravenous, ONCE, 1 dose, On Fri03/25/24 at 1100, Administer over 60 Minutes, Doses of 20 mEq or greater require a Central Line Warning Vesicant/Irritant Medication New Bag 03/25/2024 12:52 PM EDT 10 mEq 100 mL/hr potassium chloride 10 mEq in sterile water 100 mL infusion 10 mEq, Intravenous, EVERY 2 HOURS, 5 doses, First dose on Fri03/25/24 at 1800, Last dose on Fri03/26/24 at 0200, Administer over 60 Minutes, Doses of 20 mEq or greater require a Central Line Warning Vesicant/Irritant Medication New Bag 03/26/2024 3:57 AM EDT 10 mEq 100 mL/hr New Bag 03/25/2024 11:58 PM EDT 10 mEq 100 mL/hr New Bag 03/25/2024 9:23 PM EDT 10 mEq 100 mL/hr potassium chloride 10 mEq in sterile water 100 mL infusion 10 mEq, Intravenous, EVERY 2 HOURS, 5 doses, First dose (after last reorder) on Fri03/26/24 at 0745, Last dose on Fri03/26/24 at 1545, Administer over 60 Minutes, Doses of 20 mEq or greater require a Central Line Warning Vesicant/Irritant Medication New Bag 03/26/2024 4:48 PM EDT 10 mEq 100 mL/hr New Bag 03/26/2024 1:49 PM EDT 10 mEq 100 mL/hr New Bag 03/26/2024 12:13 PM EDT 10 mEq 100 mL/hr potassium chloride 10 mEq in sterile water 100 mL infusion 10 mEq, Intravenous, EVERY HOUR, 6 doses, First dose on 03/27/24 at 2200, Last dose on Fri03/28/24 at 0300, Administer over 60 Minutes, For serum K less than 3.3 mMol/L - Give 10 mEq IV x six doses (60 mEq total) Serum potassium levels should be re-checked 1.5 hours after completion of last dose & prior to administration of any additional doses. Warning Vesicant/Irritant Medication New Bag 03/27/2024 9:48 PM EDT 10 mEq 100 mL/hr potassium chloride 20 mEq in sterile water 100 mL infusion 20 mEq, Intravenous, EVERY 2 HOURS, 2 doses, First dose on 03/29/24 at 0630, Last dose on Fri03/29/24 at 0830, Administer over 60 Minutes, Doses of 20 mEq or greater require a Central Line Warning Vesicant/Irritant Medication potassium chloride 20 meq/100 mL bags must be infused through a CENTRAL LINE New Bag 03/29/2024 8:23 AM EDT 20 mEq 100 mL/hr New Bag 03/29/2024 6:19 AM EDT 20 mEq 100 mL/hr potassium chloride ER (Klor-Con M) crystal tablet 40 mEq 40 mEq, Oral, ONCE, 1 dose, On Aline 03/25/24 at 0800, May dissolve if unable to swallow ER tablet. potassium chloride ER particle/crystal tablets (Klor-Con M) may be broken in half and each half swallowed separately. Tablets can be dissolved in ~4 ounces of water; allow ~2 minutes to dissolve, stir well and drink immediately. Do not crush, chew, or suck on tablet., Routine Given 03/25/2024 8:12 AM EDT 40 mEq potassium chloride ER (Klor-Con M) crystal tablet 60 mEq 60 mEq, Oral, ONCE, 1 dose, On 03/27/24 at 2145, May dissolve tablet if unable to swallow ER tablet. Serum potassium levels should be re-checked 4 hours after completion of last dose & prior to administration of any additional doses. potassium chloride ER particle/crystal tablets (Klor-Con M) may be broken in half and each half swallowed separately. Tablets can be dissolved in ~4 ounces of water; allow ~2 minutes to dissolve, stir well and drink immediately. Do not crush, chew, or suck on tablet., Routine Given 03/27/2024 9:47 PM EDT 60 mEq potassium phosphate 15 mMol in sodium chloride 0.9% 250 mL infusion 15 mmol, Intravenous, EVERY 4 HOURS PRN, Starting on Fri03/26/24 at 0117, Until Fri03/26/24 at 0653, Administer over 4 Hours, hypophosphatemia, Administer one 15 mmol bag, over 4 hours for serum phosphate 1-1.9 mg/dL. New Bag 03/26/2024 2:07 AM EDT 15 mmol 62.5 mL/hr potassium phosphate 15 mMol in sodium chloride 0.9% 250 mL infusion 15 mmol, Intravenous, EVERY 4 HOURS PRN, Starting on Fri03/26/24 at 0117, Until Fri03/26/24 at 0653, Administer over 4 Hours, hypophosphatemia, Administer two 15 mmol bags over 4 hours for serum phosphate less than 1 mg/dL. (Total of 30 mmol over 8 hours, each 15 mmol bag to be infused over 4 hours) New Bag 03/26/2024 6:26 AM EDT 15 mmol 62.5 mL/hr potassium phosphate 15 mMol in sodium chloride 0.9% 250 mL infusion 15 mmol, Intravenous, ONCE, 1 dose, On Fri03/26/24 at 0745, Administer over 4 Hours, Administer over 4-6 hours New Bag 03/26/2024 9:02 AM EDT 15 mmol 62.5 mL/hr potassium phosphate 15 mMol in sodium chloride 0.9% 250 mL infusion 15 mmol, Intravenous, ONCE, 1 dose, On Fri03/26/24 at 1400, Administer over 4 Hours, Administer over 4-6 hours New Bag 03/26/2024 4:41 PM EDT 15 mmol 62.5 mL/hr potassium phosphate 15 mMol in sodium chloride 0.9% 250 mL infusion 15 mmol, Intravenous, ONCE, 1 dose, On Fri03/28/24 at 2015, Administer over 4 Hours, Administer over 4-6 hours New Bag 03/28/2024 9:09 PM EDT 15 mmol 62.5 mL/hr potassium, sodium phosphates (Neutra-Phos) 280-160-250 mg oral packet 3 g 3 g, Oral, ONCE, 1 dose, On Fri03/25/24 at 0030, Take with full glass of water, Routine Given 03/25/2024 4:19 AM EDT 3 g senna-docusate (Pericolace) 8.6-50 mg per tablet 2 tablet 2 tablet, Oral, 2 TIMES DAILY, First dose on Fri03/24/24 at 2245, Until Discontinued, Hold for loose stool. , Routine Given 04/01/2024 8:19 AM EDT 2 tablets Given 03/31/2024 8:23 AM EDT 2 tablets Given 03/30/2024 8:39 AM EDT 2 tablets sodium chloride 0.9 % (flush) (BD PosiFlush Normal Saline 0.9) flush 5 mL 5 mL, Intravenous, 2 TIMES DAILY, First dose on Fri03/24/24 at 2245, Until Discontinued, Routine Given 04/01/2024 8:38 AM EDT 5 mLs Given 03/31/2024 9:37 PM EDT 5 mLs Given 03/31/2024 8:21 AM EDT 5 mLs sodium chloride 0.9 % (flush) (BD PosiFlush Normal Saline 0.9) flush 5 mL 5 mL, Intravenous, 2 TIMES DAILY, First dose on Fri03/25/24 at 1100, Until Discontinued, Routine Given 04/01/2024 8:38 AM EDT 5 mLs Given 03/31/2024 9:36 PM EDT 5 mLs Given 03/31/2024 8:21 AM EDT 5 mLs sodium chloride 0.9 % (flush) (BD PosiFlush Normal Saline 0.9) flush 5-20 mL 5-20 mL, Intravenous, EVERY 1 MIN PRN, Starting on Fri03/24/24 at 2143, Until Fri04/01/24 at 1724, flush, Flush pertains to all indwelling lines. Flush per protocol found in the job aid using the link provided on this medication record., Routine sodium chloride 0.9 % (flush) (BD PosiFlush Normal Saline 0.9) flush 5-20 mL 5-20 mL, Intravenous, EVERY 1 MIN PRN, Starting on Aline 03/25/24 at 1000, Until Aline 04/01/24 at 1724, flush, Flush pertains to all indwelling lines. Flush per protocol found in the job aid using the link provided on this medication record., Routine documented in this encounter Active and Recently Administered Medications Times are shown in EDT. Scheduled Medication Order 03/30/2024 03/31/2024 04/01/2024 acetaminophen (Ofirmev) (1,000 mg/100 mL) infusion 1,000 mg (COMPLETED) 1,000 mg, Intravenous, at 400 mL/hr, Administer over 15 Minutes, EVERY 8 HOURS SCHEDULED, 3 doses, First dose (after last reorder) on Fri03/29/24 at 1015, Last dose on Fri03/30/24 at 0100, Maximum dose of acetaminophen is 4,000 mg from all sources in 24 hours. When ordered for pain, acetaminophen should be given even when other ordered pain medications are indicated., Routine, Is ketorolac (Toradol) IV contraindicated? Yes, Can this patient tolerate oral medications or suppositories? No 0018 (Given - Provider: Anais Santos RN) acetaminophen (Ofirmev) (1,000 mg/100 mL) infusion 1,000 mg (CANCELED) 1,000 mg, Intravenous, at 400 mL/hr, Administer over 15 Minutes, EVERY 8 HOURS SCHEDULED, 3 doses, First dose (after last reorder) on Fri03/30/24 at 1030, Last dose on Fri03/31/24 at 0100, Maximum dose of acetaminophen is 4,000 mg from all sources in 24 hours. When ordered for pain, acetaminophen should be given even when other ordered pain medications are indicated., Routine, Is ketorolac (Toradol) IV contraindicated? Yes, Can this patient tolerate oral medications or suppositories? No 1152 (Given - Provider: Micha Butler RN)1999 (Not Given - Provider: Bernard Ritchie RN - Reason: Patient/family refused) 99 (Not Given - Provider: Bernard Ritchie RN - Reason: Patient/family refused) Adult TPN (COMPLETED) Central, Intravenous, at 83.3 mL/hr, Continuous (TPN), 1 dose, First dose (after last reorder) on Fri03/30/24 at 1800, Last dose on Fri03/30/24 at 1800, Administer over 24 Hours 1704 (New Bag - Provider: Micha Butler RN) 1704 (Stopped - Provider: Soco Mohamud RN) Adult TPN (CANCELED) Central, Intravenous, at 83.3 mL/hr, Continuous (TPN), 1 dose, First dose (after last reorder) on Fri03/31/24 at 1800, Last dose on Fri03/31/24 at 1800, Administer over 24 Hours 1709 (New Bag - Provider: Soco Mohamud RN) 1351 (Stopped - Provider: Nuvia Andrea RN - Comment: Time automatically adjusted from order being discontinued) amoxicillin-clavulanate (Augmentin) 500-125 mg per tablet 2 tablet 2 tablet, Oral, 3 TIMES DAILY, First dose on Fri03/31/24 at 0900, Until Discontinued, Routine, Indication 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): GI/Intra-abdominal 0823 (Given - Provider: Soco Mohamud RN)1452 (Given - Provider: Soco Mohamud RN)2135 (Given - Provider: Bernard Ritchie RN) 0819 (Given - Provider: Li Lewis RN)1500 (Due) bisacodyL (Dulcolax) suppository 10 mg (COMPLETED) 10 mg, Rectal, ONCE, 1 dose, On Fri03/30/24 at 0830, Routine 0839 (Given - Provider: Micha Butler RN) cefTRIAXone (Rocephin) 1 g vial attach to sodium chloride 0.9% 50 mL Mini-Bag Plus (CANCELED) 1 g, Intravenous, EVERY 24 HOURS, First dose on Fri03/24/24 at 2330, Until Discontinued, Administer over 30 Minutes, Indication 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): GI/Intra-abdominal 0009 (Stopped - Provider: Anais Santos RN)2351 (New Bag - Provider: Bernard Ritchie RN) 0021 (Stopped - Provider: Bernard Ritchie RN) citalopram (CeleXA) tablet 40 mg 40 mg, Oral, DAILY, First dose (after last modification) on Fri03/29/24 at 0900, Until Discontinued, Routine 0839 (Given - Provider: Micha Butler RN) 0823 (Given - Provider: Soco Mohamud RN) 0818 (Given - Provider: Li Lewis RN) fluconazole (Diflucan) 400 mg in sodium chloride 0.9% 200 mL infusion (CANCELED) 400 mg, Intravenous, EVERY 24 HOURS, First dose (after last modification) on Fri03/30/24 at 1800, Until Discontinued, Administer over 120 Minutes, Indication 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): GI/Intra-abdominal, Restricted Antibiotic: Please indicate the most appropriate choice: ID Approval by Maxi Medrano [id number] (New Bag - Provider: Micha Butler RN)2024 (Stopped - Provider: Bernard Ritchie RN) fluconazole (Diflucan) tablet 600 mg 600 mg, Oral, DAILY, First dose on Fri03/31/24 at 0900, Until Discontinued, DO NOT SPLIT, CRUSH OR OPEN, Routine, Indication 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): GI/Intra-abdominal 0823 (Given - Provider: Soco Mohamud RN) 0819 (Given - Provider: Li Lewis RN) gabapentin (Neurontin) capsule 600 mg 600 mg, Oral, 3 TIMES DAILY, First dose on Fri03/28/24 at 0900, Until Discontinued 0839 (Not Given - Provider: Micha Butler RN - Reason: Patient/family refused)1500 (Not Given - Provider: Micha Butler RN - Reason: Patient/family refused)2213 (Given - Provider: Bernard Ritchie RN) 0900 (Not Given - Provider: Soco Mohamud RN - Reason: Patient/family refused)1451 (Not Given - Provider: Soco Mohamud RN - Reason: Patient/family refused)2135 (Given - Provider: Bernard Ritchie RN) 0900 (Not Given - Provider: Li Lewis RN - Reason: Patient/family refused)1500 (Due) heparin (porcine) (5,000 units/1 mL) subcutaneous injection 5,000 Units 5,000 Units, Subcutaneous, EVERY 8 HOURS SCHEDULED, First dose on Fri03/24/24 at 2245, Until Discontinued, Routine 0510 (Given - Provider: Anais Santos GRETCHEN)1500 (Given - Provider: Micha Butler, RN)2213 (Given - Provider: Bernard Ritchie, RN) 0642 (Given - Provider: Bernard Ritchie, GRETCHEN)1452 (Given - Provider: Soco Mohamud, GRETCHEN)2136 (Given - Provider: Bernard Ritchie, GRETCHEN) 0639 (Given - Provider: Bernard Ritchie, GRETCHEN)1308 (Given - Provider: Li Lewis RN) insulin glargine-ygfn (Semglee) (100 unit/mL) subcutaneous injection vial 10 Units 10 Units, Subcutaneous, DAILY, First dose on Fri03/26/24 at 1315, Until Discontinued, Routine 0840 (Given - Provider: Micha Butler RN) 0824 (Given - Provider: Soco Mohamud, GRETCHEN) 0818 (Given - Provider: Li Lewis RN) insulin lispro (HumaLOG;Admelog) (100 unit/mL) subcutaneous injection vial 0-11 Units 0-11 Units, Subcutaneous, 3 TIMES DAILY WITH MEALS, First dose on Fri03/31/24 at 1230, Until Discontinued, MEAL ASSOCIATED Give 1 unit: 8 grams of carbohydrate Hold if not eating or if BG less than 70 mg/dL., Routine 1237 (Given - Provider: Soco Mohamud, GRETCHEN)1716 (Given - Provider: Soco Mohamud, GRETCHEN) 0825 (Given - Provider: Li Lewis, GRETCHEN)1307 (Given - Provider: Li Lewis RN) insulin lispro (HumaLOG;Admelog) (100 unit/mL) subcutaneous injection vial 1-6 Units(Linked Group 1) 1-6 Units, Subcutaneous, EVERY 4 HOURS SCHEDULED, First dose on Fri03/28/24 at 1200, Until Discontinued, CORRECTION BOLUS [1-6 Units] Moderate Sliding Scale (BG in mg/dL): Correction factor 20 (1 unit of insulin is expected to drop the glucose 20 mg/dL) BG 140 - 160 Give 1 unit BG 161 - 180 Give 2 units BG 181 - 200 Give 3 units BG 201 - 220 Give 4 units BG 221 - 240 Give 5 units BG greater than 240, give 6 units and recheck BG in 2 hours. - If recheck BG is LESS than 240, give no insulin and resume schedule. - If recheck BG is GREATER than or EQUAL to 240, give 6 units and repeat BG in 2 hours (no more than 3 times) & call for new insulin orders. DO NOT hold if NPO, unless specifically directed to do so by written order. ?? Per Inpatient Subcutaneous Insulin Policy, recheck a BG of greater than 240 mg/dL in 2 hours., Routine 0510 (Given - Provider: Anais Santos RN)0756 (Given - Provider: Micha Butler RN)1200 (Given - Provider: Micha Butler RN)1630 (Given - Provider: Micha Butler RN)1939 (Given - Provider: Jyoti Nelson RN - Comment: BG 169)2350 (Given - Provider: Bernard Ritchie RN) 0452 (Given - Provider: Bernard Ritchie RN)0825 (Given - Provider: Soco Mohamud RN)1238 (Given - Provider: Soco Mohamud RN)1715 (Not Given - Provider: Soco Mohamud RN - Reason: Order parameters not met - Comment: 155)2000 (Given - Provider: Bernard Ritchie RN)2357 (Given - Provider: Bernard Ritchie RN) 0342 (Given - Provider: Bernard Ritchie RN)0824 (Given - Provider: Li Lewis RN - Comment: BG 156)1307 (Given - Provider: Li Lewis RN) uryavz-zumzwguw-cddxcss DR (Zenpep 20) 20,000-63,000- 84,000 unit per capsule 2 capsule 2 capsule, Oral, 3 TIMES DAILY WITH MEALS, First dose on Fri03/30/24 at 1400, Until Discontinued, Routine 1501 (Given - Provider: Micha Butler RN)1700 (Not Given - Provider: Micha Butler RN - Reason: Patient/family refused) 0837 (Given - Provider: Soco Mohamud RN)1237 (Given - Provider: Soco Mohamud, GRETCHEN)1714 (Given - Provider: Soco Mohamud RN) 0818 (Given - Provider: Li Lewis RN)1231 (Given - Provider: Li Lewis RN) metoclopramide (Reglan) (5 mg/mL) injection 10 mg 10 mg, Intravenous, 4 TIMES DAILY BEFORE MEALS & NIGHTLY, First dose on Fri03/29/24 at 1400, Until Discontinued, Doses greater than 10mg should be diluted into 50ml NS. 0839 (Given - Provider: Micha Butler RN)1147 (Given - Provider: Micha Butler RN)1630 (Not Given - Provider: Micha Butler RN - Reason: Patient/family refused)2213 (Given - Provider: Bernard Ritchie RN) 0642 (Given - Provider: Bernard Ritchie RN)1237 (Given - Provider: Soco Mohamud, GRETCHEN)1715 (Given - Provider: Soco Mohamud, GRETCHEN)2136 (Given - Provider: Bernard Ritchie RN) 0640 (Given - Provider: Bernard Ritchie RN)1308 (Given - Provider: Li Lewis RN) metroNIDAZOLE (Flagyl) 500 mg in sodium chloride 0.9% 100 mL infusion (CANCELED) 500 mg, Intravenous, EVERY 8 HOURS, First dose on Aline 03/25/24 at 0000, Until Discontinued, Administer over 30 Minutes, Indication 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): Anaerobic infection-GI/Intrabdomi nal 0009 (Stopped - Provider: Anais Santos RN)0847 (New Bag - Provider: Micha Butler RN)0917 (Stopped - Provider: Micha Butler RN)1624 (New Bag - Provider: Micha Butler RN)1654 (Stopped - Provider: Micha Butler RN) 0042 (New Bag - Provider: Bernard Ritchie RN)0112 (Stopped - Provider: Bernard Ritchie RN) pantoprazole EC (Protonix) tablet 40 mg 40 mg, Oral, DAILY, First dose on Fri03/28/24 at 0900, Until Discontinued, Therapeutic substitution to formulary alternative per P&T approved Therapeutic Interchange Policy 0839 (Given - Provider: Micha Butler RN) 0823 (Given - Provider: Soco Mohamud RN) 0818 (Given - Provider: Li Lewis RN) polyethylene glycoL (Miralax) packet 17 g 17 g, Oral, DAILY, First dose on Fri03/25/24 at 0900, Until Discontinued, Hold for loose stool. , Routine 0900 (Not Given - Provider: Micha Butler RN - Reason: NPO) 0822 (Given - Provider: Soco Mohamud, GRETCHEN) 0818 (Given - Provider: Li Lewis RN) senna-docusate (Pericolace) 8.6-50 mg per tablet 2 tablet 2 tablet, Oral, 2 TIMES DAILY, First dose on Fri03/24/24 at 2245, Until Discontinued, Hold for loose stool. , Routine 0839 (Given - Provider: Micha Butler RN)2100 (Not Given - Provider: Bernard Ritchie RN - Reason: Patient/family refused) 0823 (Given - Provider: Soco Mohamud, GRETCHEN)2100 (Not Given - Provider: Bernard Ritchie RN - Reason: Patient/family refused) 0819 (Given - Provider: Li Lewis RN) sodium chloride 0.9 % (flush) (BD PosiFlush Normal Saline 0.9) flush 5 mL 5 mL, Intravenous, 2 TIMES DAILY, First dose on Fri03/24/24 at 2245, Until Discontinued, Routine 0842 (Given - Provider: Micha Butler RN)2214 (Given - Provider: Bernard Ritcihe RN) 0821 (Given - Provider: Soco Mohamud, GRETCHEN)213 (Given - Provider: Bernard Ritchie RN) 0838 (Given - Provider: Li Lewis RN) sodium chloride 0.9 % (flush) (BD PosiFlush Normal Saline 0.9) flush 5 mL 5 mL, Intravenous, 2 TIMES DAILY, First dose on Fri03/25/24 at 1100, Until Discontinued, Routine 0841 (Given - Provider: Micha Butler RN)2214 (Given - Provider: Bernard Ritchie RN) 0821 (Given - Provider: Soco Mohamud, GRETCHEN)213 (Given - Provider: Bernard Ritchie RN) 0838 (Given - Provider: Li Lewis RN) PRN Medication Order 03/30/2024 03/31/2024 04/01/2024 acetaminophen (Tylenol) tablet 650 mg 650 mg, Oral, EVERY 8 HOURS PRN, Starting on Fri03/31/24 at 0744, Until Fri04/01/24 at 1724, Pain, Maximum dose of acetaminophen is 4,000 mg from all sources in 24 hours. When ordered for pain, acetaminophen should be given even when other ordered pain medications are indicated., Routine dextrose 10% infusion(Linked Group 2) 250 mL, at 1,000 mL/hr, Intravenous, EVERY 15 MIN PRN, Starting on Fri03/26/24 at 1224, Until Fri04/01/24 at 1724, For BG 50-70 mg/dL: Oral treatment preferred: If able to drink, give 120 mL juice or regular (not diet) soda OR if NPO, give 15 gram glucose 40% oral gel massaged into buccal mucosa OR if unconscious or uncooperative, give 25 gram (250 mL) dextrose 10% IV over 15 minutes per protocol OR, if no IV access, 1 mg glucagon IM. For BG less than 50 mg/dL: Oral treatment preferred: If able to drink, give 240 mL juice or regular (not diet) soda OR if NPO, give 30 gram glucose 40% oral gel massaged in buccal mucosa OR if unconscious or uncooperative, give 25 gram (250 mL) dextrose 10% IV over 15 minutes per protocol OR, if no IV access, 1 mg glucagon IM. Recheck BG in 15 minutes. May repeat juice/soda, gel, dextrose or glucagon once per episode. Notify provider if hypoglycemia does not resolve after two treatments. Providers should consider the following: administering longer-acting treatments for the duration of active insulin or hypoglycemia agent for persistent hypoglycemia and re-evaluating active insulin orders before administering the next dose. gabapentin (Neurontin) capsule 600 mg 600 mg, Oral, 3 TIMES DAILY PRN, Starting on 03/27/24 at 0915, Until Fri04/01/24 at 1724, nueropathy, Routine glucagon (Glucagen) (1 mg/mL) injection solution 1 mg(Linked Group 2) 1 mg, Intramuscular, EVERY 15 MIN PRN, Starting on Fri03/26/24 at 1224, Until Aline 04/01/24 at 1724, Low blood sugar, For BG 50-70 mg/dL: Oral treatment preferred: If able to drink, give 120 mL juice or regular (not diet) soda OR if NPO, give 15 gram glucose 40% oral gel massaged into buccal mucosa OR if unconscious or uncooperative, give 25 gram (250 mL) dextrose 10% IV over 15 minutes per protocol OR, if no IV access, 1 mg glucagon IM. For BG less than 50 mg/dL: Oral treatment preferred: If able to drink, give 240 mL juice or regular (not diet) soda OR if NPO, give 30 gram glucose 40% oral gel massaged in buccal mucosa OR if unconscious or uncooperative, give 25 gram (250 mL) dextrose 10% IV over 15 minutes per protocol OR, if no IV access, 1 mg glucagon IM. Recheck BG in 15 minutes. May repeat juice/soda, gel, dextrose or glucagon once per episode. Notify provider if hypoglycemia does not resolve after two treatments. Providers should consider the following: administering longer-acting treatments for the duration of active insulin or hypoglycemia agent for persistent hypoglycemia and re-evaluating active insulin orders before administering the next dose. , Routine glucose (Glutose) 40% oral geL(Linked Group 2) 15-30 g of glucose, Buccal, EVERY 15 MIN PRN, Starting on Fri03/26/24 at 1224, Until Fri04/01/24 at 1724, Low blood sugar, For BG 50-70 mg/dL: Oral treatment preferred: If able to drink, give 120 mL juice or regular (not diet) soda OR if NPO, give 15 gram glucose 40% oral gel massaged into buccal mucosa OR if unconscious or uncooperative, give 25 gram (250 mL) dextrose 10% IV over 15 minutes per protocol OR, if no IV access, 1 mg glucagon IM. For BG less than 50 mg/dL: Oral treatment preferred: If able to drink, give 240 mL juice or regular (not diet) soda OR if NPO, give 30 gram glucose 40% oral gel massaged in buccal mucosa OR if unconscious or uncooperative, give 25 gram (250 mL) dextrose 10% IV over 15 minutes per protocol OR, if no IV access, 1 mg glucagon IM. Recheck BG in 15 minutes. May repeat juice/soda, gel, dextrose or glucagon once per episode. Notify provider if hypoglycemia does not resolve after two treatments. Providers should consider the following: administering longer-acting treatments for the duration of active insulin or hypoglycemia agent for persistent hypoglycemia and re-evaluating active insulin orders before administering the next dose. 1 tube of Glutose-15 contains 15 grams of glucose (net weight of tube = 37.5 grams.), Routine lidocaine (Xylocaine) 1% (10 mg/mL) injection 3 mg 3 mg (0.3 mL), Subcutaneous, ONCE PRN, 1 dose, Starting on Fri03/24/24 at 2143, Until Fri04/01/24 at 1724, for discomfort with PIV insertion, Routine lidocaine (Xylocaine) 1% (10 mg/mL) injection 3 mg 3 mg (0.3 mL), Subcutaneous, ONCE PRN, 1 dose, Starting on Fri03/25/24 at 1000, Until Fri04/01/24 at 1724, for discomfort with PIV insertion, Routine ondansetron (pf) (Zofran) (2 mg/mL) injection 4 mg(Linked Group 3) 4 mg, Intravenous, EVERY 8 HOURS PRN, Starting on Fri03/24/24 at 2146, Until Fri04/01/24 at 1724, Nausea, 4 mg,Oral,EVERY 8 HOURS PRN, Nausea,Vomiting If multiple antiemetics are ordered, use ondansetron first. May repeat times one in 30 minutes if ineffective. ondansetron ODT (Zofran-ODT) disintegrating tablet 4 mg(Linked Group 3) 4 mg, Oral, EVERY 8 HOURS PRN, Starting on Fri03/24/24 at 2146, Until Fri04/01/24 at 1724, Nausea, If multiple antiemetics are ordered, use ondansetron first. PO Preferred. If patient unable to take PO, may give IV if ordered. May repeat times one in 45 minutes if ineffective. , Routine sodium chloride 0.9 % (flush) (BD PosiFlush Normal Saline 0.9) flush 5-20 mL 5-20 mL, Intravenous, EVERY 1 MIN PRN, Starting on Fri03/24/24 at 2143, Until Fri04/01/24 at 1724, flush, Flush pertains to all indwelling lines. Flush per protocol found in the job aid using the link provided on this medication record., Routine sodium chloride 0.9 % (flush) (BD PosiFlush Normal Saline 0.9) flush 5-20 mL 5-20 mL, Intravenous, EVERY 1 MIN PRN, Starting on Fri03/25/24 at 1000, Until Fri04/01/24 at 1724, flush, Flush pertains to all indwelling lines. Flush per protocol found in the job aid using the link provided on this medication record., Routine Linked Groups Order Group 1: POCT Fingerstick Glucose (CANCELED) Routine, EVERY 4 HOURS, First occurrence on Fri03/28/24 at 0905, Until Specified, Consider choosing EVERY 4 HOURS as frequency for: - Type 1 Diabetes - At least 24 hours after coming off an insulin drip - At least 24 hours after admission for DKA - Hypoglycemia unawareness - Patients who are otherwise unstable Select the same frequency for the correction bolus insulin order And insulin lispro (HumaLOG;Admelog) (100 unit/mL) subcutaneous injection vial 1-6 UnitsJump to med 1-6 Units, Subcutaneous, EVERY 4 HOURS SCHEDULED, First dose on Fri03/28/24 at 1200, Until Discontinued, CORRECTION BOLUS [1-6 Units] Moderate Sliding Scale (BG in mg/dL): Correction factor 20 (1 unit of insulin is expected to drop the glucose 20 mg/dL) BG 140 - 160 Give 1 unit BG 161 - 180 Give 2 units BG 181 - 200 Give 3 units BG 201 - 220 Give 4 units BG 221 - 240 Give 5 units BG greater than 240, give 6 units and recheck BG in 2 hours. - If recheck BG is LESS than 240, give no insulin and resume schedule. - If recheck BG is GREATER than or EQUAL to 240, give 6 units and repeat BG in 2 hours (no more than 3 times) & call for new insulin orders. DO NOT hold if NPO, unless specifically directed to do so by written order. ?? Per Inpatient Subcutaneous Insulin Policy, recheck a BG of greater than 240 mg/dL in 2 hours., Routine Group 2: glucose (Glutose) 40% oral geLJump to med 15-30 g of glucose, Buccal, EVERY 15 MIN PRN, Starting on Fri03/26/24 at 1224, Until Fri04/01/24 at 1724, Low blood sugar, For BG 50-70 mg/dL: Oral treatment preferred: If able to drink, give 120 mL juice or regular (not diet) soda OR if NPO, give 15 gram glucose 40% oral gel massaged into buccal mucosa OR if unconscious or uncooperative, give 25 gram (250 mL) dextrose 10% IV over 15 minutes per protocol OR, if no IV access, 1 mg glucagon IM. For BG less than 50 mg/dL: Oral treatment preferred: If able to drink, give 240 mL juice or regular (not diet) soda OR if NPO, give 30 gram glucose 40% oral gel massaged in buccal mucosa OR if unconscious or uncooperative, give 25 gram (250 mL) dextrose 10% IV over 15 minutes per protocol OR, if no IV access, 1 mg glucagon IM. Recheck BG in 15 minutes. May repeat juice/soda, gel, dextrose or glucagon once per episode. Notify provider if hypoglycemia does not resolve after two treatments. Providers should consider the following: administering longer-acting treatments for the duration of active insulin or hypoglycemia agent for persistent hypoglycemia and re-evaluating active insulin orders before administering the next dose. 1 tube of Glutose-15 contains 15 grams of glucose (net weight of tube = 37.5 grams.), Routine Or dextrose 10% infusionJump to med 250 mL, at 1,000 mL/hr, Intravenous, EVERY 15 MIN PRN, Starting on Fri03/26/24 at 1224, Until Aline 04/01/24 at 1724, For BG 50-70 mg/dL: Oral treatment preferred: If able to drink, give 120 mL juice or regular (not diet) soda OR if NPO, give 15 gram glucose 40% oral gel massaged into buccal mucosa OR if unconscious or uncooperative, give 25 gram (250 mL) dextrose 10% IV over 15 minutes per protocol OR, if no IV access, 1 mg glucagon IM. For BG less than 50 mg/dL: Oral treatment preferred: If able to drink, give 240 mL juice or regular (not diet) soda OR if NPO, give 30 gram glucose 40% oral gel massaged in buccal mucosa OR if unconscious or uncooperative, give 25 gram (250 mL) dextrose 10% IV over 15 minutes per protocol OR, if no IV access, 1 mg glucagon IM. Recheck BG in 15 minutes. May repeat juice/soda, gel, dextrose or glucagon once per episode. Notify provider if hypoglycemia does not resolve after two treatments. Providers should consider the following: administering longer-acting treatments for the duration of active insulin or hypoglycemia agent for persistent hypoglycemia and re-evaluating active insulin orders before administering the next dose. Or glucagon (Glucagen) (1 mg/mL) injection solution 1 mgJump to med 1 mg, Intramuscular, EVERY 15 MIN PRN, Starting on Fri03/26/24 at 1224, Until Fri04/01/24 at 1724, Low blood sugar, For BG 50-70 mg/dL: Oral treatment preferred: If able to drink, give 120 mL juice or regular (not diet) soda OR if NPO, give 15 gram glucose 40% oral gel massaged into buccal mucosa OR if unconscious or uncooperative, give 25 gram (250 mL) dextrose 10% IV over 15 minutes per protocol OR, if no IV access, 1 mg glucagon IM. For BG less than 50 mg/dL: Oral treatment preferred: If able to drink, give 240 mL juice or regular (not diet) soda OR if NPO, give 30 gram glucose 40% oral gel massaged in buccal mucosa OR if unconscious or uncooperative, give 25 gram (250 mL) dextrose 10% IV over 15 minutes per protocol OR, if no IV access, 1 mg glucagon IM. Recheck BG in 15 minutes. May repeat juice/soda, gel, dextrose or glucagon once per episode. Notify provider if hypoglycemia does not resolve after two treatments. Providers should consider the following: administering longer-acting treatments for the duration of active insulin or hypoglycemia agent for persistent hypoglycemia and re-evaluating active insulin orders before administering the next dose. , Routine Group 3: ondansetron ODT (Zofran-ODT) disintegrating tablet 4 mgJump to med 4 mg, Oral, EVERY 8 HOURS PRN, Starting on Fri03/24/24 at 2146, Until Aline 04/01/24 at 1724, Nausea, If multiple antiemetics are ordered, use ondansetron first. PO Preferred. If patient unable to take PO, may give IV if ordered. May repeat times one in 45 minutes if ineffective. , Routine Or ondansetron (pf) (Zofran) (2 mg/mL) injection 4 mgJump to med 4 mg, Intravenous, EVERY 8 HOURS PRN, Starting on 03/24/24 at 2146, Until Aline 04/01/24 at 1724, Nausea, 4 mg,Oral,EVERY 8 HOURS PRN, Nausea,Vomiting If multiple antiemetics are ordered, use ondansetron first. May repeat times one in 30 minutes if ineffective. documented in this encounter Care Teams Sealing Machine Operator Relationship Specialty Start Date End Date Olga Hoffman APRN [address] [place] [address] PCP - General Family Medicine 10/30/22 documented as of this encounter
--- OUTSIDE RECORDS SUMMARY | 2024-05-21 01:09 | XMS_ITS | Encounter Summary ---
Author Organization Formerly [facility] [place] [address] Care Team Providers Care Car Painter Name Role Phone Olga Hoffman APRN Primary Care Provider [phone] Encounter Details Date Type Department Care Team (Late st Contact Info) Description 03/24/2024 [place] [phone] [facility] [place] [address] Social History Tobacco Use Types Packs/Day Years Used Date Smoking Tobacco: Never Smokeless Tobacco: Never Alcohol Use Standard Drinks/Week Comments Not Currently 0 (1 standard drink = 0.6 oz pur e alcohol) [facility] Utilities Answer Date Recorded In the past 12 months has [facility] [employer], gas, oil, or water [employer] threatened to shut off services in your [...] any time in the past 12 m [facility], were you homeless or living in [...] as of this encounter H&P Notes * Tylor Don DO - 03/24/2024 8:25 PM EDT Images from the original note were not included. Interventional Radiology Focused Pre-procedure H&P: PCP: Olga Hoffman APRN Referring Provider: No ref. 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 There are no answered order specific questions. History of present illness: Per chart review, Charles Nick is a 48 y.o. male who presents to Interventional Radiology to undergo drain placement within a new peripancreatic abscess in the setting of recent whipple procedure for duodenal carcinoma. Patient presented to [facility] with sepsis and is pending transfer to [facility] for further treatment and medical optimization. Remainder of patient's medical and surgical history, allergies, medications, and social/family history obtained below as previously outlined in patient's medical record. Imaging: CT abdomen/pelvis Assessment: 48 y.o. male s/p whipple for duodenal carcinoma with new post- operative marizol-pancreaticfluid collection presenting to Interventional Radiology for CT-guided drainage. Plan Planned procedure: Peripancreatic drain placement Labs to be performed day of procedure: No labs Sedation: Moderate (Conscious sedation) Prophylactic antibiotic : None Contrast: Omnipaque Additional medications for procedure: Lidocaine Planned access site: provider preference Position: Supine Consent: Pending Medications to discontinue (and days held): None Cytopathology presence needed: No Case Urgency:: D2- Within 24 hours (i.e. can be next day) Labs: Lab Results Component Value Date HGB 12.7 (L) 03/08/2024 HCT 39.2 (L) 03/08/2024 WBC 10.0 (H) 03/08/2024 PLATELET 295 03/08/2024 INR 1.1 12/25/2022 BUN 3 (L) 03/08/2024 CREATININE 0.57 (L) 03/08/2024 ALBUMIN 3.0 (L) 03/08/2024 BILITOT 0.4 03/08/2024 AST 11 03/08/2024 ALT 22 03/08/2024 ALKPHOS 94 03/08/2024 Allergies: Penicillins Medications: Current Outpatient Medications on File Prior to Visit Medication Sig Dispense Refill pevqku-eetubyeh-jjzrsrr (Zenpep) 40,000-126,000- 168,[address] capsule Take 2 capsules by mouth 3times daily. Take 2 capsules with meals and 1 capsule with snacks. 300 capsule 3 ondansetron ODT (Zofran-ODT) 4 mg disintegrating tablet Take 1 tablet by mouth every 8 hours as needed for Nausea. 9 tablet 0 omeprazole (PriLOSEC) [address] capsule Take 1 capsule by mouth daily. 90 capsule 1 lidocaine (Lidoderm) 5% Adhesive Patch, Medicated Apply [...] covered by insurance 15 mL 3 Insulin [place], Disposable, (BD Ultra-Fine Micro Pen Needle) 32 gauge x 1/4 Needle [address] [facility].(Non-Drug; Combo Route) route 2 times daily. 300 each 3 montelukast (Singulair) 10 mg tablet Take 10 mg by mouth daily. magnesium oxide (Mag-Ox) 400 mg (241.3 mg magnesium) Tablet Take 1 tablet by mouth nightly. amLODIPine (Norvasc) 10 mg tablet Take 1 tablet by mouth daily. clindamycin (Cleocin) 150 mg capsule Take 150 mg by mouth daily. LORazepam (Ativan) 0.5 mg tablet Take 1 tablet by mouth as needed. naltrexone (Depade) 50 mg tablet Take 50 mg by mouth daily. Farxiga 10 mg tablet Take 1 tablet by mouth daily. cyanocobalamin, Vitamin B-12, (Vitamin B-12) 100 mcg tablet Take 100 mcg by mouth daily. ondansetron ODT (Zofran-ODT) 4 mg disintegrating tablet Take 4 mg by mouth every 8 hours as needed for Nausea. citalopram (CeleXA) 10 mg tablet Take 10 mg by mouth daily. famotidine (Pepcid) 20 mg tablet Take 20 [...] medications on file prior to visit. 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 Past Medical History: Diagnosis Date CKD (chronic kidney disease) stage 3, GFR 30-59 ml/min 01/31/2011 Obesity 01/31/2011 Past Surgical History: Procedure Laterality Date IR BIOPSY LIVER PERCUTANEOUS - NON-FOCAL PARENCHYMA 01/07/2023 IR Biopsy Liver Percutaneous 01/07/2023 Juan Wright MD [facility] INTERVENTIONL RAD PRO PART REMV PANC, PROX+REMV DUOD+ANAST N/A 03/01/2024 @CHAKA PROCEDURE (WRVU 52.84) performed by Rudi Hernandez MD at [facility] MAIN OR PRO TRANSFER SKIN PEDICLE FLAP N/A 03/01/2024 TRANSFER, INTERMEDIATE, ANY PEDICLE FLAP, ANY LOCATION (WRVU 4.77) performed by Rudi Hernandez MD at [facility] MAIN OR Social history and habits: Social History Tobacco Use Smoking status: Never Smokeless tobacco: Never Vaping Use Vaping status: Never Used Substance Use Topics Alcohol use: Not Currently Drug use: Not Currently Significant family history: No family history on file. Pertinent ROS: as per HPI Physical exam: Pending (to be performed in interventional radiology the day of procedure) ASA: Pending (to be assessed in interventional radiology the day of procedure) Mallampati class: Pending (to be assessed in interventional radiology the day of procedure) 03/24/2024 Tylor Don DO documented in this encounter Plan of Treatment Upcoming Encounters Date Type Department Care Team (Late st Contact Info) Description 05/21/2024 9:00 AM EDT Office [place] [phone] Nighat López MD [facility] [place] [address] 05/28/2024 8:00 AM EDT Office Visit Hematology/Oncology at [address] [phone] Rodriguez Fowler MD [facility] [place] [address] Sherry Cedillo APRN [address] [place] [address] DR HEMATOLOGY AND ONCOLOGY [place], [place] [id number] 05/28/2024 8:30 AM EDT Infusion Hematology Oncology at [address] [phone] 05/28/2024 9:30 AM EDT Clinical Support Hematology/Oncology at [address] [phone] [facility] [place] [address] documented as of this encounter Visit Diagnoses Not on filedocumented in this encounter Care Teams Car Painter Relationship Specialty Start Date End Date Olga Hoffman APRN [address] [place] [address] PCP - General Family Medicine 10/30/22 documented as of this encounter
--- OUTSIDE RECORDS SUMMARY | 2024-05-21 01:10 | XMS_ITS | Encounter Summary ---
Author Organization Formerly [facility] [place] [address] Care Team Providers Care Supervisor Wood Crew Name Role Phone Olga Hoffman APRN Primary Care Provider [phone] Encounter Details Date Type Department Care Team (Latest Contact Info) Description 03/16/2024 Multidisciplinary Ca re Committee [place] [phone] Rudi Hernandez MD [facility] [place] [address] Social History Tobacco Use Types Packs/Day Years Used Date Smoking Tobacco: Never Smokeless Tobacco: Never Alcohol Use Standard Drinks/Week Comments Not Currently 0 (1 standard drink = 0.6 oz pur e alcohol) [facility] Utilities Answer Date Recorded In the past 12 months has [facility] [employer], gas, oil, or water [employer] threatened to shut off services in your home? No 03/02/2024 Overall Financial Resource Strain (CARDIA) Answe r Date Recorded How hard is it for you to pa y for the very basics like food, housing, medical care, and heating? Somewhat hard 01/23/2023 Hunger Vital Sign Answer Date Recorded Within the past 12 months, y ou worried that your food would run out before you got the money to buy more. Never true 03/02/20 24 Within the past 12 months, t he food you bought just didn't last and you didn't have money to get more. Never true 03/02/2024 PRAPARE - Transportation Answer Date Re corded In the past 12 months, has l ack of transportation kept you from medical appointments or from getting medications? No 02/13 In the past 12 months, has l ack of transportation kept you from meetings, work, or from getting things needed for daily living? No 03/02/2024 Housing Stability Vital Sign Answer Alexander e [...] place to sleep or slept in a fdc (including now)? No 01/23/2023 Housing Stability Vital Sign Answer Alexander e Recorded In the last 12 months, was t here a time when you were not able to pay the mortgage or rent on time? No 03/02/2024 Number of Times Moved in the Last Year Not on fi le 03/02/2024 At any time in the past 12 m [facility], were you homeless or living in a fdc (including now)? No 03/02/2024 IPV Inpatient Questions Answer Date Recorded Does Anyone Try to Keep You From Having Contact with Others or Doing Things Outside Your Home? no 03/02/2024 Feels Threatened by Someone no 02/13 Feels Unsafe at Home or Work/School no 03/02/2024 Physical Signs of Abuse Present no 03/02/2024 Sex and Gender Information Value Date Recorded Sex Assigned at Not on file Gender Identity Not on file Sexual Orientation Not on file documented as of this encounter Plan of Treatment Upcoming Encounters Date Type Department Care Team (Late st Contact Info) Description 05/21/2024 9:00 AM EDT Office Visit [place] [phone] Nighat López MD [facility] [place] [address] 05/28/2024 8:00 AM EDT Office Visit Hematology/Oncology at [address] [phone] Rodriguez Fowler MD [facility] [place] [address] Sherry Cedillo APRN [address] [place] [address] DR HEMATOLOGY AND ONCOLOGY [place], [place] [phone] 05/28/2024 8:30 AM EDT Infusion Hematology Oncology at [address] [phone] 05/28/2024 9:30 AM EDT Clinical Support Hematology/Oncology at [address] [phone] [facility] DR [place]EMATOLOGY [place] [address] documented as of this encounter Visit Diagnoses Not on filedocumented in this encounter Care Teams Supervisor Wood Crew Relationship Specialty Start Date End Date Olga Hoffman APRN [address] [place], [place] [address] PCP - General Family Medicine 10/30/22 documented as of this encounter
--- OUTSIDE RECORDS SUMMARY | 2024-05-21 01:10 | XMS_ITS | Encounter Summary ---
[place] [address] Care Team Providers Care Sleeping Bag Filler Name Role Phone Olga Hoffman APRN Primary Care Provider +1 [phone] Encounter Details Date Type Department Care Team (Late st Contact Info) Description 03/24/2024 Telephone [place] [address] Gina Marie, RN Social History Tobacco Use Types Packs/Day Years Used Date Smoking Tobacco: Never Smokeless Tobacco: Never Alcohol Use Standard Drinks/Week Comments Not Currently 0 (1 standard drink = 0.6 oz pur e alcohol) [facility] Utilities Answer Date Recorded In the [...] any time in the past 12 m [facility], were you homeless or living in a [...] Telephone Encounter - Gina Marie RN - 03/24/2024 3:47 PM EDT I left Dax a voicemail just now to let him know I'm initiating a prior authorization for the ZenPep. I spoke with his pharmacy this afternoon. The Creon was going to cost 4,000 dollars out of pocket, so a new order was sent in on 03/22 for ZenPep instead. The ZenPep is also being denied by his insurance, so I will be initiating a PA this today and will request urgent review. I've left my name and number to call with any questions. I will also send him a [employer] message as well. Addendum at 17:52: Several attempts made to initiate prior authorization via covermymeds with errormessages,Patient inactive and No matching patient. I will follow up with him to verify insurance tomorrow. documented in this encounter Plan of Treatment Upcoming Encounters Date Type Department Care Team (Late st Contact Info) Description 05/21/2024 9:00 AM EDT Office [place] [address] Nighat López MD [facility] [place] [address] 05/28/2024 8:00 AM EDT Office Visit Hematology/Oncology at [address] [phone] Rodriguez Fowler MD [facility] [place] [address] Sherry Cedillo RUBBLE PLACER [address] [place] [address] DR HEMATOLOGY AND ONCOLOGY [place], [place] [id number] 05/28/2024 8:30 AM EDT Infusion Hematology Oncology at [address] [phone] 05/28/2024 9:30 AM EDT Clinical Support Hematology/Oncology at [address] [phone] [facility] DR [place]EMATOLOGY [place] [address] documented as of this encounter Visit Diagnoses Not on filedocumented in this encounter Care Teams Sleeping Bag Filler Relationship Specialty Start Date End Date Olga Hoffman APRN [address] [place] [address] PCP - General Family Medicine 10/30/22 documented as of this encounter
--- OUTSIDE RECORDS SUMMARY | 2024-05-21 01:10 | XMS_ITS | Encounter Summary ---
Author Organization [facility] [place] [address] Care Team Providers Care Impact Retail Service Merchandiser Name Role Phone Olga Hoffman APRN Primary Care Provider [phone] [phone] Encounter Details Date Type Department Care Team (Late st Contact Info) Description 03/22/2024 Orders [place] [address] Rudi Hernandez MD [facility] [place] [address] Duodenal adenocarcinoma; H/O Whipple procedure Social History Tobacco Use Types Packs/Day Years Used Date Smoking Tobacco: Never Smokeless Tobacco: Never Alcohol Use Standard Drinks/Week Comments Not Currently 0 (1 standard drink = 0.6 oz pur e alcohol) [facility] Utilities Answer Date Recorded In the past 12 months has [employer], gas, oil, or water [employer] threatened to shut off services in your [...] time in the past 12 m [facility], were you homeless or living in a intermediate (including now)? No 03/02/2024 IPV Inpatient Questions [...] 9:00 AM EDT Office [place] [address] Nighat López MD [facility] [place] [address] 05/28/2024 8:00 AM EDT Office Visit Hematology/Oncology at [address] [phone] Rodriguez Fowler MD [facility] [place] [address] Sherry Cedillo APRN [address] [place] [address] DR HEMATOLOGY AND ONCOLOGY [place], [place] [phone] 05/28/2024 8:30 AM EDT Infusion Hematology Oncology at [address] [phone] 05/28/2024 9:30 AM EDT Clinical Support Hematology/Oncology at [address] [phone] [facility] DR HEMATOLOGY [place] [address] documented as of this encounter Visit Diagnoses Diagnosis Duodenal adenocarcinoma Malignant neoplasm of duodenum H/O Whipple procedure documented in this encounter Care Teams Impact Retail Service Merchandiser Relationship Specialty Start Date End Date Olga Hoffman APRN [address] [place], [place] [address] PCP - General Family Medicine 10/30/22 documented as of this encounter
--- OUTSIDE RECORDS SUMMARY | 2024-05-21 01:10 | XMS_ITS | Encounter Summary ---
Author Organization [facility] [place] [address] Care Team Providers Care Adjudication Specialist Name Role Phone Olga Hoffman APRN Primary Care Provider +1 [phone] Encounter Details Date Type Department Care Team (Late st Contact Info) Description 03/10/2024 Orders [place] [address] Rudi Hernandez MD [facility] [place] [address] Duodenal cancer Social History Tobacco Use Types Packs/Day Years Used Date Smoking Tobacco: Never Smokeless Tobacco: Never Alcohol Use Standard Drinks/Week Comments Not Currently 0 (1 standard drink = 0.6 oz pur e alcohol) [facility] Utilities Answer Date Recorded In the past 12 months has [facility] [employer], gas, oil, or water [employer] threatened to shut off services in your [...] any time in the past 12 m [facility], were you homeless or living in a chcf (including now)? No 03/02/2024 IPV Inpatient Questions [...] 9:00 AM EDT Office [place] [address] Nighat López MD [facility] [place] [address] 05/28/2024 8:00 AM EDT Office Visit Hematology/Oncology at [address] [phone] Rodriguez Fowler MD [facility] [place] [address] Sherry Cedillo APRN [address] [place] [address] DR HEMATOLOGY AND ONCOLOGY [place], [place] [address] 05/28/2024 8:30 AM EDT Infusion Hematology Oncology at [address] [phone] 05/28/2024 9:30 AM EDT Clinical Support Hematology/Oncology at [address] [phone] [facility] DR [place] [address] documented as of this encounter Visit Diagnoses Diagnosis Duodenal cancer Malignant neoplasm of duodenum documented in this encounter Care Teams Adjudication Specialist Relationship Specialty Start Date End Date Olga Hoffman, YOCASTA [address] [place], [place] [address] PCP - General Family Medicine 10/30/22 documented as of this encounter
--- OUTSIDE RECORDS SUMMARY | 2024-05-21 01:10 | XMS_ITS | Encounter Summary ---
Author Organization [facility] [place] [address] Care Team Providers Care Biomedical Engineering Technologist Name Role Phone Olga Hoffman APRN Primary Care Provider [phone] [phone] Reason for Referral * Consultation (Routine) - Closed Specialty Diagnoses / Procedures Referred By Contnina t Referred To Contact Hematology and Oncology Diagnoses Duodenal adenocarcinoma Carine Hernandez MD [facility] [place] [address] [facility]c [address] [place] [address] Referral ID Status Reason Start Date Expiration Date V isits Requested Visits Authorized [id number] Closed Consult, Test & Treat 03/11/2024 03/11/2025 1 1 Reason for Visit * Reason Comments Follow-up Encounter Details Date Type Department Care Team (Latest Contact Info) Description 03/17/2024 10:00 AM EDT Office Visit [place] [address] Carine Hernandez MD [facility] [place] [address] Duodenal adenocarcinoma Social History Tobacco Use Types Packs/Day Years Used Date Smoking Tobacco: Never Smokeless Tobacco: Never Alcohol Use Standard Drinks/Week Comments Not Currently 0 (1 standard drink = 0.6 oz pur e alcohol) [facility] Utilities Answer Date Recorded In [...] time in the past 12 m [facility], were you homeless or living in a long term (including now)? No 03/02/2024 IPV Inpatient Questions [...] Sign Reading Time Taken Comments Blood Pressure 108/73 03/17/2024 9:56 AM EDT Pulse 109 03/17/2024 9:56 AM EDT Temperature 36.4 ??C (97.6 ??F) 03/17/2024 9:56 AM ED T Respiratory Rate 16 03/17/2024 9:56 AM EDT Oxygen Saturation 99% 03/17/2024 9:56 AM EDT Inhaled Oxygen Concentration - - Weight 119.7 kg (263 lb 14.4 oz) 03/17/2024 9:56 AM EDT Height 188 cm (6' 2.02) 03/17/2024 9:56 AM EDT Body Mass Index 33.87 03/17/2024 9:56 AM EDT documented in this encounter Progress Notes * Carine Hernandez MD - 03/17/2024 10:00 AM EDT Department of General Surgery Surgical [...] Edition) pT Category: pT3 pN Category: pN1 Interval: Charles Nick is now 2 weeks postop from [place]. He has been home for over a [...] cramps, he is also having bowel movements. Physical Exam: Temp: [36.4 ??C (97.6 ??F)] Heart Rate: [109] Resp: [16] BP: (108)/(73) SpO2: [99 %] Heart Rate from SpO2: -- General: NAD, resting comfortably, pleasant, conversant HEENT: NCAT, EOMI Pulm: non labored breathing Abd: soft, nontender, nondistended. Steristrips in place, incision well approximated Skin: warm, dry Ext: no cyanosis, cap refill <2sec Neuro: grossly intact, nonfocal Assessment and Plan: Charles Nick is a 48-year-old gentleman with a history of duodenal adenocarcinoma status post Whipple. We reviewed his pathology, he has poorly differentiated adenocarcinoma with 2 out of 24 positive nodes. We discussed that the recommendation would be for adjuvant chemotherapy either CapeOx or FOLFOX. He is scheduled to meet with Dr. Fowler to discuss his adjuvant chemotherapy options. In terms of recovery he is doing as expected for 2 weeks post whipple, he will meet with nutrition today discuss managing his symptoms and maximizing his nutrition. We discussed that the low energy and fatigue is typical. many patient feels this today for several weeks/months. I will order additional Zofran for him. He knows he can call with any questions or concerns. Please excuse any typographical and/or grammatical errors, dragon dictation was used to complete this note. Carine Hernandez MD, MS Surgical Oncology 03/17/2024 10:55 AM documented in this encounter Miscellaneous Notes * Addendum Note - Carine Hernandez MD - 03/17/2024 10:00 AM EDTAddended by: CARINE HERNANDEZ on: 03/17/2024 05:13 PM Modules accepted: Orders * Addendum Note - Carine Hernandez MD - 03/17/2024 10:00 AM EDTAddended by: CARINE HERNNADEZ on: 03/20/2024 06:58 AM Modules accepted: Orders documented in this encounter Plan of Treatment Upcoming Encounters Date Type Department Care Team (Late st Contact Info) Description 05/21/2024 9:00 AM EDT Office [place] [address] Nighat López MD [facility] [place] [address] 05/28/2024 8:00 AM EDT Office Visit Hematology/Oncology at [address] [phone] Rodriguez Fowler MD [facility] [place] [address] Sherry Cedillo APRN [address] [place] [address] DR HEMATOLOGY AND ONCOLOGY [place], [place] [address] 05/28/2024 8:30 AM EDT Infusion Hematology Oncology at [address] [phone] 05/28/2024 9:30 AM EDT Clinical Support Hematology/Oncology at [address] [phone] [facility] DR HEMATOLOGY [place] [address] Scheduled Referrals Name Type Priority Associated Diagnoses Orde r Schedule Referral to Hematology and Oncology Outpatient Referral Routine Duodenal adenocarcinoma Ordered: 03/11/2024 documented as of this encounter Visit Diagnoses Diagnosis Duodenal adenocarcinoma Malignant neoplasm of duodenum documented in this encounter Care Teams Biomedical Engineering Technologist Relationship Specialty Start Date End Date Olga Hoffman APRN [address] [place] [address] PCP - General Family Medicine 10/30/22 documented as of this encounter
--- OUTSIDE RECORDS SUMMARY | 2024-05-21 01:10 | XMS_ITS | Encounter Summary ---
Author Organization [facility] [place] [address] Care Team Providers Care Pot Filler Name Role Phone Olga Hoffman APRN Primary Care Provider [phone] [phone] Encounter Details Date Type Department Care Team (Late st Contact Info) Description 03/10/2024 Telephone [place] [phone] Rudi Hernandez MD [facility] [place] [address] Social History Tobacco Use Types Packs/Day Years Used Date Smoking Tobacco: Never Smokeless Tobacco: Never Alcohol Use Standard Drinks/Week Comments Not Currently 0 (1 standard drink = 0.6 oz pur e alcohol) [facility] Utilities Answer Date Recorded In the past 12 months has e [employer], gas, oil, or water [employer] threatened to shut off services in your [...] any time in the past 12 m [facility], were you homeless or living in a [...] encounter Miscellaneous Notes * Telephone Encounter - Rudi Hernandez MD - 03/11/2024 8:30 AM EDT I spoke to Charles Nick and his partner Jenelle, we briefly went over the pathology results, specifically that his whipple specimen has negative margins but there were 2/24 nodes with disease. I will present him at GI tumor board and will place a referral to medical oncology for consideration of adjuvant chemotherapy. Rudi Hernandez MD documented in this encounter Plan of Treatment Upcoming Encounters Date Type Department Care Team (Late st Contact Info) Description 05/21/2024 9:00 AM EDT Office [place] [address] Nighat López MD [facility] [place] [address] 05/28/2024 8:00 AM EDT Office Visit Hematology/Oncology at [address] [phone] Rodriguez Fowler MD [facility] [place] [address] Sherry Cedillo APRN [address] [place] [address] DR HEMATOLOGY AND ONCOLOGY [place], [place] [phone] 05/28/2024 8:30 AM EDT Infusion Hematology Oncology at [address] [phone] 05/28/2024 9:30 AM EDT Clinical Support Hematology/Oncology at [address] [phone] [facility] [place] [address] documented as of this encounter Visit Diagnoses Not on filedocumented in this encounter Care Teams Pot Filler Relationship Specialty Start Date End Date Olga Hoffman APRN [address] [place] [address] PCP - General Family Medicine 10/30/22 documented as of this encounter
--- OUTSIDE RECORDS SUMMARY | 2024-05-21 01:10 | XMS_ITS | Encounter Summary ---
Author Organization [facility] Address [facility] [place] [address] Care Team Providers Care Biological Chemist Name Role Phone Olga Hoffman APRN Primary Care Provider +1 [phone] Encounter Details Date Type Department Care Team (Late st Contact Info) Description 03/24/2024 10:30 AM EDT Telephone Hematology [place] [address] Donna Dewey, RD [facility] [place] [address] Social History Tobacco Use Types Packs/Day Years Used Date Smoking Tobacco: Never Smokeless Tobacco: Never Alcohol Use Standard Drinks/Week Comments Not Currently 0 (1 standard drink = 0.6 oz pur e alcohol) [facility] Utilities Answer Date Recorded In the past [address] [employer], gas, oil, or water [employer] threatened to shut off services in your [...] place to sleep or slept in a senior living (including now)? No 01/23/2023 Housing Stability Vital [...] were you homeless or living in a senior living (including now)? No 03/25/2024 DH IPV Inpatient [...] Telephone Encounter - Donna Dewey, RD - 03/24/2024 11:03 AM EDT Called Charles and his partner to check in--they were in the car traveling. Reports that he still feels very weak. He called into his PCP yesterday and she has recommended blood draw today and will assess further. Per Jenelle, he is Very hypotensive today even though he is keeping up with fluid intake. Feeling really crappy. No nausea. No pain. Dont feel like eating. Really big problem--gets so dizzy getting up. Yesterday ate minimally - fruit cup, cookies and a coffee, drank a lot of water--64ounces. Complaints of heartburn / omeprazole once daily Bowels: not really moving - Friday or Friday / passing gas [place] pancakes whole soylent protein drink 400 kcals/ 20 grams protein two shrimp cups over the weekend--eats better when Jenelle is home to encourage him. He has not started dosing pancreatic enzymes at this time. Just picked up Creon/ original prescription for Creon /insurance covered 80 capsules---but will cover ZenPEP 40 (issue at pharmacy with thisbecause former order for Creon was cancelled). Feeling about the same as last week. A/P: Messaged General surgery nurses and Dr Hernandez - I am concerned about patient's current status with limited po intake over the past several days and complaints of feeling weak, fatigue, hypotensiveper his partner Jenelle (she is an RN). Also inquired of gen thoracic surgeon if they can please help with ensuring he is able to get prescription for ZenPEP at his pharmacy. Continued close f/u. documented in this encounter Plan of Treatment Upcoming Encounters Date Type Department Care Team (Late st Contact Info) Description 05/21/2024 9:00 AM EDT Office [place] [address] Nighat López MD [facility] [place] [address] 05/28/2024 8:00 AM EDT Office Visit Hematology/Oncology at [address] [phone] Rodriguez Fowler MD [facility] [place] [address] Sherry Cedillo APRN [address] [place] [address] DR HEMATOLOGY AND ONCOLOGY [place], [place] [id number] 05/28/2024 8:30 AM EDT Infusion Hematology Oncology at [address] [phone] 05/28/2024 9:30 AM EDT Clinical Support Hematology/Oncology at [address] [phone] Leah Rose, RD [facility] [place] [address] documented as of this encounter Visit Diagnoses Not on filedocumented in this encounter Care Teams Biological Chemist Relationship Specialty Start Date End Date Olga Hoffman APRN [address] [place] [address] PCP - General Family Medicine 10/30/22 documented as of this encounter
--- OUTSIDE RECORDS SUMMARY | 2024-05-21 01:10 | XMS_ITS | Encounter Summary ---
Author Organization [facility] [place] [address] Care Team Providers Care Regulatory Affairs Intern Name Role Phone Olga Hoffman APRN Primary Care Provider [phone] [phone] Encounter Details Date Type Department Care Team (Latest Contact Info) Description 03/20/2024 Multidisciplinary Ca re Committee [place] [phone] Rudi Hernandez MD [facility] [place] [address] Social History Tobacco Use Types Packs/Day Years Used Date Smoking Tobacco: Never Smokeless Tobacco: Never Alcohol Use Standard Drinks/Week Comments Not Currently 0 (1 standard drink = 0.6 oz pur e alcohol) [facility] Utilities Answer Date Recorded In the past 12 months has [facility] [employer], gas, oil, or water [employer] threatened to shut off services in your [...] place to sleep or slept in a longterm (including now)? No 01/23/2023 Housing Stability Vital Sign Answer Alexander e Recorded In the last 12 months, was t here a time when you were not able to pay the mortgage or rent on time? No 03/02/2024 Number of Times Moved in the Last Year Not on fi le 03/02/2024 At any time in the past 12 m [facility], were you homeless or living in a longterm (including now)? No 03/02/2024 IPV Inpatient Questions [...] as of this encounter Progress Notes * Rudi Hernandez MD - 03/20/2024 7:11 AM EDT GI Tumor Board Note Date Presented: 03/16/24 Presenting Physician: David Diagnosis/Tumor Site: Duodenal adenocarcinoma Is this Metastatic Disease: NA Synopsis of History/HPI: s/p whipple Pathology/Histology: Path reviewed DIAGNOSIS A - Common marina duct lymph [...] Edition) pT Category: pT3 pN Category: pN1 Recommendations: Adjuvant CapOx or Folfox. DISCLAIMER: The patient was discussed and the tumor board made recommendations but it is ultimatelyup to the treatment provider(s) and the patient to determine the patient???s care. documented in this encounter Plan of Treatment Upcoming Encounters Date Type Department Care Team (Late st Contact Info) Description 05/21/2024 9:00 AM EDT Office [place] [address] Nighat López MD [facility] [address] 05/28/2024 8:00 AM EDT Office Visit Hematology/Oncology at [address] [phone] [facility] [place] [address] Sherry Cedillo APRN [address] [place] [address] DR HEMATOLOGY AND ONCOLOGY [place], [place] [id number] 05/28/2024 8:30 AM EDT Infusion Hematology Oncology at [address] [phone] 05/28/2024 9:30 AM EDT Clinical Support Hematology/Oncology at [address] [phone] Leah Rose, RD [facility] [place] [address] documented as of this encounter Visit Diagnoses Not on filedocumented in this encounter Care Teams Regulatory Affairs Intern Relationship Specialty Start Date End Date Olga Hoffman APRN [address] [place], [place] [address] PCP - General Family Medicine 10/30/22 documented as of this encounter
--- OUTSIDE RECORDS SUMMARY | 2024-05-21 01:10 | XMS_ITS | Encounter Summary ---
Author Organization [facility] [place] [address] Care Team Providers Care Shell Molder Name Role Phone Olga Hoffman APRN Primary Care Provider [phone] Encounter Details Date Type Department Care Team (Late st Contact Info) Description 03/19/2024 Telephone [place] [address] Jaki Pantoja RN Social History Tobacco Use Types Packs/Day Years Used Date Smoking Tobacco: Never Smokeless Tobacco: Never Alcohol Use Standard Drinks/Week Comments Not Currently 0 (1 standard drink = 0.6 oz pur e alcohol) [facility] Utilities Answer Date Recorded In the past [...] living in a long-term (including now)? No 03/02/2024 DH IPV Inpatient Questions Answer Date Recorded [...] encounter Miscellaneous Notes * Telephone Encounter - Jaki Pantoja RN - 03/19/2024 2:50 PM EDT Reason for Call: Concerns regarding post op incision Brief Health History (Onset, Location, Duration, Characteristics, Aggravating Factors, Relieving Factors/Radiation,Timing, and Severity): Jenelle called on behalf of Charles. She states the top part of his incision opened (about 1/2 cm) and had a lot of serous, pink tinged drainage. There is a little bit of redness immediately around the incision. His last temperature was 99.4. She sent a picture of the incision through [facility]. I reassured her that the incision looks as it should. She can tuck the corner of a piece of gauze into the opening and fold the gauze over the top of it and cover with tape.They should change this every day. Continue to monitor for s/s of infection. Jenelle verbalized understanding. Worsening Symptoms: Emphasized symptoms that require emergent/urgent care according to EPIC protocol utilized or other documented decision support tool. Patient able to teach back worsening symptoms and action to take. Patient/Caregiver demonstrates understanding via teach back: Yes Disposition: Monitor from home documented in this encounter Plan of Treatment Upcoming Encounters Date Type Department Care Team (Late st Contact Info) Description 05/21/2024 9:00 AM EDT Office [place] [address] Nighat López MD [facility] [place] [address] 05/28/2024 8:00 AM EDT Office Visit Hematology/Oncology at [address] [phone] Rodriguez Fowler MD [facility] [place] [address] Sherry Cedillo, YOCASTA [address] [place] [address] DR HEMATOLOGY AND ONCOLOGY [place], [place] [id number] 05/28/2024 8:30 AM EDT Infusion Hematology Oncology at [address] [phone] 05/28/2024 9:30 AM EDT Clinical Support Hematology/Oncology at [address] [phone] [address] [facility] DR [place] [address] documented as of this encounter Visit Diagnoses Not on filedocumented in this encounter Care Teams Shell Molder Relationship Specialty Start Date End Date Olga Hoffman APRN [address] [place] [address] PCP - General Family Medicine 10/30/22 documented as of this encounter
--- OUTSIDE RECORDS SUMMARY | 2024-05-21 01:10 | XMS_ITS | Encounter Summary ---
Author Organization [facility] Address [facility] [place] [address] Care Team Providers Care Fourdrinier Machine Operator Name Role Phone Olga Hoffman APRN Primary Care Provider [phone] Encounter Details Date Type Department Care Team (Latest Contact Info) Description 03/17/2024 Travel Social History Tobacco Use Types Packs/Day Years Used Date Smoking Tobacco: Never Smokeless Tobacco: Never Alcohol Use Standard Drinks/Week Comments Not Currently 0 (1 standard drink = 0.6 oz pur e alcohol) [facility] Utilities Answer Date Recorded In [...] time in the past 12 m [facility], were you homeless or living in a mcfp (including now)? No 03/02/2024 IPV Inpatient Questions [...] 9:00 AM EDT Office Visit [place] [address] Nighat López MD [facility] [place] [address] 05/28/2024 8:00 AM EDT Office Visit Hematology/Oncology at [address] [phone] Rodriguez Fowler MD [facility] [place] [address] Sherry Cedillo APRN [address] [place] [address] DR HEMATOLOGY [place] [address] 05/28/2024 8:30 AM EDT Infusion Hematology Oncology at [address] [phone] 05/28/2024 9:30 AM EDT Clinical Support Hematology/Oncology at [address] [phone] Leah Rose, RD [facility] DR HEMATOLOGY [place] [address] documented as of this encounter Visit Diagnoses Not on filedocumented in this encounter Care Teams Fourdrinier Machine Operator Relationship Specialty Start Date End Date Olga Hoffman APRN [address] [place] [address] PCP - General Family Medicine 10/30/22 documented as of this encounter
--- OUTSIDE RECORDS SUMMARY | 2024-05-21 01:10 | XMS_ITS | Encounter Summary ---
Author Organization [facility] Address [facility] [place] [address] Care Team Providers Care Auto Care Center Manager Name Role Phone Olga Hoffman APRN Primary Care Provider [phone] Encounter Details Date Type Department Care Team (Late st Contact Info) Description 03/17/2024 10:30 AM EDT Clinical [place] [address] Donna Dewey, RD [facility] [place] [address] Duodenal cancer Social History Tobacco Use Types Packs/Day Years Used Date Smoking Tobacco: Never Smokeless Tobacco: Never Alcohol Use Standard Drinks/Week Comments Not Currently 0 (1 standard drink = 0.6 oz pur e alcohol) [facility] Utilities Answer Date Recorded In the past 12 months has [employer], oil, or water [employer] threatened to shut off services in your [...] time in the past 12 m [facility], were you homeless or living in a fci (including now)? No 03/02/2024 IPV Inpatient Questions [...] Progress Notes * Donna Dewey, RD - 03/17/2024 10:30 AM EDT HPI: Charles Nick is a 48 y.o. male with PMH of hypertension, chronic kidney disease, biopsy-proven fatty liver disease, type 2 diabetes on Trulicity, and a newly diagnosed duodenal adenocarcinoma who ultimately presented to [facility] on 03/01/24 for Whipple procedure. Operations/Major Procedures: Operations: 03/01/2024 - 03/02/2024 Surgeons and Role: * Rudi Hernandez MD - Primary * Latonia Red MD: Procedure(s): @WHIPPLE PROCEDURE (WRVU 52.84) TRANSFER, INTERMEDIATE, ANY PEDICLE FLAP, ANY LOCATION (WRVU 4.77) Operative Findings: - no gross metastatic disease and notably large uncinate process - whipple performed with BII reconstruction - BASIA drain placed at HJ and PJ anastomosis DM: Diabetes Discharge Instructions & Recommendations Check your blood sugars when you wake up and before bedtime - keep a log to take to your appointments. Restart Farxiga 10mg QD Restart Metformin 1000mg twice daily with meals. Insulin: 12 units of lantus every morning Reports post prandial gas, cramping discomfort with eating and drinking. +Early satiety. Moving bowels twice a week (typically once every 5-7 days). No vomiting in the past three days--has helped by keeping to smaller volume meals and staying upright after meals. Vomiting once a day last week. ONS: Soylent (400 kcals, 24 grams fat and 20 grams protein), Shira also using Collagen powder and making shakes for him. Using [place] and coconut milk Yesterday-- Am: Coffee with non dairy creamer and 4 Oreo Cookies Chicken strip and potato wedge Doughnut Gatorade History of lactose intolerance/ occas can tolerate ice cream but often chooses lactose free products most often DM BS are 170-211 / he did not return to taking metformin per Shira. Has been with Shira, his partner for past three years. He has three children and she has one child. (12, 13, 15, 16 yrs old) Weight at 298 pounds prior to surgery Wt Readings from Last 3 Encounters: 03/17/24 119.7 kg (263 lb 14.4 oz) 03/07/24 (!) 138.6 kg (305 lb 8.9 oz) 02/03/24 131.5 kg (289 lb 12.8 oz) Labs: none reported today Medications: reviewed Severe (12%) weight loss in less than four weeks, complaints of post prandial gas and cramping discomfort, bowels moving. No vomiting in the past three days. +Nausea using zofran for relief. +Early satiety - I am not sure how much to eat. A/P: Low appetite, early satiety, nausea/discussed ideas of low volume foods that may be better tolerated. Dr Hernandez provided new prescription for ondansetron. ONS: recommendations for ONS ie Orgain as well as commercially available protein powder. CADE: suspect CADE/ recommend start Creon 36 : 2 with meals and 1 with snacks/ May require dosing 2 with high kcal shakes (Soylent contains 24 grams fat). Discussed s/s of CADE as well as dosing and timing of PERT. Continue to monitor weight closely--I will f/u call in another week to check weight an f/u on startof Creon documented in this encounter Plan of Treatment Upcoming Encounters Date Type Department Care Team (Late st Contact Info) Description 05/21/2024 9:00 AM EDT Office [place] [address] Nighat López MD [facility] [place] [address] 05/28/2024 8:00 AM EDT Office Visit Hematology/Oncology at [address] [phone] Rodriguez Fowler MD [facility] [place] [address] Sherry Cedillo APRN [address] [place] [address] DR HEMATOLOGY AND ONCOLOGY [place], [place] [id number] 05/28/2024 8:30 AM EDT Infusion Hematology Oncology at [address] [phone] 05/28/2024 9:30 AM EDT Clinical Support Hematology/Oncology at [address] [phone] [facility] DR [place]ATOLOGY [place] [address] documented as of this encounter Visit Diagnoses Diagnosis Duodenal cancer Malignant neoplasm of duodenum documented in this encounter Care Teams Auto Care Center Manager Relationship Specialty Start Date End Date Olga Hoffman, RISK LEAD [address] [place] [address] PCP - General Family Medicine 10/30/22 documented as of this encounter
--- OUTSIDE RECORDS SUMMARY | 2024-05-21 01:11 | XMS_ITS | Encounter Summary ---
Author Organization [facility] [place] [address] Care Team Providers Care Neonatal Pediatric Nurse Name Role Phone Olga Hoffman APRN Primary Care Provider [phone] Encounter Details Date Type Department Care Team (Late st Contact Info) Description 03/05/2024 Telephone [place] [address] Deena Wells Social History Tobacco Use Types Packs/Day Years Used Date Smoking Tobacco: Never Smokeless Tobacco: Never Alcohol Use Standard Drinks/Week Comments Not Currently 0 (1 standard drink = 0.6 oz pur e alcohol) [facility] Utilities Answer Date Recorded In the [...] living in a penitentiary (including now)? No 03/02/2024 IPV Inpatient Questions [...] 9:00 AM EDT Office [place] [address] Nighat López MD [facility] [place] [address] 05/28/2024 8:00 AM EDT Office Visit Hematology/Oncology at [address] [phone] Rodriguez Fowler MD [facility] [place] [address] Sherry Cedillo APRN [address] [place] [address] DR HEMATOLOGY AND ONCOLOGY [place], [place] [id number] 05/28/2024 8:30 AM EDT Infusion Hematology Oncology at [address] [phone] 05/28/2024 9:30 AM EDT Clinical Support Hematology/Oncology at [address] [phone] Leah Rose, RD [facility] DR [place] [address] documented as of this encounter Visit Diagnoses Not on filedocumented in this encounter Care Teams Neonatal Pediatric Nurse Relationship Specialty Start Date End Date Olga Hoffman APRN [address] [place] [address] PCP - General Family Medicine 10/30/22 documented as of this encounter
--- OUTSIDE RECORDS SUMMARY | 2024-05-21 01:11 | XMS_ITS | Encounter Summary ---
[place] [address] Care Team Providers Care Systems Developer Name Role Phone DaltonAbigail choihryn Arabella RUST Primary Care Provider [phone] Encounter Details Date Type Department Care Team (Late st Contact Info) Description 03/02/2024 11:59 PM EDT [place]est[place] [phone] Rafi Pena RN Anesthesia Record Procedure Summary Procedure Name Responsible Anesthesiologist Anesthesia Start Time Anesthesia Stop Time Acute Pain Medicine Service (consult) Events No events on file. Meds * Agents No agents on file. * Blood No blood administrations on file. Lines, Drains, and Airways No LDAs on file. documented in this encounter Social History Tobacco Use Types Packs/Day Years Used Date Smoking Tobacco: Never Smokeless Tobacco: Never Alcohol Use Standard Drinks/Week Comments Not Currently 0 (1 standard drink = 0.6 oz pur e alcohol) [facility] Utilities Answer Date Recorded In the past 12 months has [employer], gas, oil, or water [employer] threatened to shut off services in your [...] any time in the past 12 m [facility], were you homeless or living in a senior living (including now)? No 03/02/2024 IPV Inpatient Questions [...] 9:00 AM EDT Office [place] [address] Nighat López MD [facility] [place] [address] 05/28/2024 8:00 AM EDT Office Visit Hematology/Oncology at [address] [phone] Rodriguez Fowler MD [facility] [place] [address] Sherry Cedillo APRN [address] [place] [address] DR HEMATOLOGY AND ONCOLOGY [place], [place] [id number] 05/28/2024 8:30 AM EDT Infusion Hematology Oncology at [address] [phone] 05/28/2024 9:30 AM EDT Clinical Support Hematology/Oncology at [address] [phone] [facility] DR [place]ATOLOGY [place] [address] documented as of this encounter Visit Diagnoses Not on filedocumented in this encounter Care Teams Systems Developer Relationship Specialty Start Date End Date Olga Hoffman APRN [address] [place] [address] PCP - General Family Medicine 10/30/22 documented as of this encounter
--- OUTSIDE RECORDS SUMMARY | 2024-05-21 01:11 | XMS_ITS | Encounter Summary ---
Author Organization [facility] [place] [address] Care Team Providers Care Upkeep Worker Name Role Phone Dalton Olgaevy Bell APRN Primary Care Provider [phone] Reason for Visit * Auth/Cert (Routine) Specialty Diagnoses / Procedures Referred By Contac t Referred To Contact Diagnoses Malignant neoplasm of duodenum DUODENUM ADENCARCINOMA Procedures PRO PART REMV PANC, PROX+REMV DUOD+ANAST @WHIPPLE PROCEDURE (WRVU 52.84) Rudi Hernandez MD [facility] [address] [facility] Referral ID Status Reason Start Date Expiration Date Visits Re quested Visits Authorized [id number] 1 1 Encounter Details Date Type Department Care Team (Latest Contact Info) Description 03/01/2024 6:11 AM EDT - 03/08/2024 3:01 PM EDT Hospital Encounter Surgical Unit Level 4 [place] [address] Rudi Hernandez MD [facility] [address] Duodenal cancer; Duodenal adenocarcinoma Discharge Disposition: Home Social History Tobacco Use Types Packs/Day Years Used Date Smoking Tobacco: Never Smokeless Tobacco: Never Alcohol Use Standard Drinks/Week Comments Not Currently 0 (1 standard drink = 0.6 oz pur e alcohol) [facility] Utilities Answer Date Recorded In [...] living in a detention (including now)? No 03/02/2024 DH IPV Inpatient [...] Sign Reading Time Taken Comments Blood Pressure 139/82 03/08/2024 11:22 AM EDT Pulse 83 03/01/2024 9:30 PM EDT Temperature 36.7 ??C (98.1 ??F) 03/08/2024 1 1:22 AM EDT Respiratory Rate 20 03/08/2024 11:2 2 AM EDT Oxygen Saturation 98% 03/08/2024 12: 45 PM EDT Inhaled Oxygen Concentration - - Weight 138.6 kg (305 lb 8.9 oz) 03/07/2024 7:03 AM EDT Height 188 cm (6' 2) 03/01/2024 6:33 AM EDT Body Mass Index 39.23 03/01/2024 6:33 AM EDT documented in this encounter Discharge Summaries * Tiffanie Pabon MD - 03/08/2024 1:46 PM EDT Surgical Oncology Inpatient - Discharge Summary Patient Name: Charles Nick Patient Age: 48 y.o. Birthdate: 1975 Admit date: 03/01/2024 Discharge date: 03/08/24 Admitting Physician: Rudi Hernandez MD Primary Diagnosis: Duodenal adenocarcinoma Secondary Diagnosis: Active Hospital Problems Diagnosis Duodenal adenocarcinoma Resolved Hospital Problems No resolved problems to display. Active Non-Hospital Problems Diagnosis CKD (chronic kidney disease) stage 3, GFR 30-59 ml/min Obesity HPI: Charles Nick is a 48 y.o. male with PMH of hypertension, chronic kidney disease, biopsy-proven fatty liver disease, type 2 diabetes on Trulicity, and a newly diagnosed duodenal adenocarcinoma who ultimately presented to [facility] on 03/01/24 for Whipple procedure. Operations/Major Procedures: [...] drain placed at HJ and PJ anastomosis Hospital Course: Charles Nick was admitted to [facility]01[facility]. He was brought to the operating room on 03/01/[address] Hernandez performed surgery as described above. He tolerated the operation well and without complication. He was admitted post- operatively for continued rehabilitation, clinical monitoring and further management. The patient's hospital course was uncomplicated and detailed below: 03/01/24: To OR for open Whipple procedure with Billroth II reconstruction, BASIA drain placed at HJ and PJ anastomosis. 200 mL EBL. Epidural, bailey, NGT in place. 03/02 POD1: BASIA amylase hemolyzed x 3 attempts. Fluid boluses for oliguria, Cr WNL. DM ACID ADJUSTER recommendedstarting Lantus 8u daily. Seen by wound care for foot ulcer present on admission and followed by outpatient podiatry - treating plantar ulcer with medihoney, leaving hallux open to air. 03/03 POD2: BASIA amylase 645. Creatinine up from 0.8 to 1.16 with continued poor UOP, FENA suggestive of prerenal REAL. He was given Crystalloids and Albumin for the resuscitation. Plan to watch UOP closely and monitor response to alternating LR boluses/albumin PRN. Urine output improved with IV lasix 20 mg x 1. NGT removed after successful clamp trial. Advanced to CLD with 500 mL limit. 03/04 POD3: BASIA amylase 395. Home Lasix 40mg PO BID started. Advanced to clear liquids with toast. Lantus increased to 10u per endocrine recs. 03/05 POD4: Diet advanced to carb controlled diet, Epidural decreased by half dose, Oral oxycodone added, Medication changed to oral route, Bowel regimen including suppository provided, IV fluid DC'd,Bailey removed, required insertion of straight catheter for of failed void trial, continued voiding without issue overnight, Anxiety medication resumed, BASIA amylase within normal limit (32) 03/06 POD5: had 1 episode of emesis overnight, HAS associated mild nausea, potassium 3.4, repleted, KUB no sign of ileus, backed to clear liquid diet, giving suppository, had a bowel movement after suppository 03/07 POD23: PRN labetalol started, diet advanced to carb controlled diet, anticipate weaning of epidural per APS He was deemed stable for discharge on post-operative day 7 (on 03/08/24) having achieved adequate pain control on oral analgesics, ambulating and voiding independently, tolerating a regular diet, and having regular bowel movements. Important Studies and Lab Data: See below. Pathology: Final surgical pathology pending Microbiology: Intra-op bile fluid cultures 03/01/24: No growth Labs: Last 3 wbc, hgb, hct plt Recent Labs 03/08/24 0444 03/07/24 0453 03/06/24 0409 WBC 10.0* 8.0 7.5 HGB 12.7* 11.9* 12.1* HCT 39.2* 37.5* 38.4* PLATELET 295 230 220 Last 3 Lytes Recent Labs 03/08/24 0444 03/07/24 0453 03/06/24 0409 NA 132* 136 135 K 3.2* 3.8 3.4* CL 97* 99 98 CO2 21* 25 27 BUN 3* 5* 6* CREATININE 0.57* 0.67* 0.70* Last 3 LFTs Recent Labs 03/08/24 0444 03/07/24 0453 03/06/24 0409 AST 11 11 12 ALT 22 25 36 ALKPHOS 94 88 86 BILITOT 0.4 0.4 0.4 Last Ca, Mg, Phos Recent Labs 03/08/24 0444 03/03/24 1313 03/03/24 0104 CALCIUM 8.8 < > 8.1* PHOS -- -- 2.2* MAGNESIUM -- -- 0.78 < > = values in this interval not displayed. Pending Lab Data at Discharge: No current labs Studies: KUB 03/02/24: IMPRESSION Enteric tube terminates in the distal esophagus. Please advance. KUB 03/02/24: IMPRESSION NG tube terminating in the stomach with sidehole just past the GE junction. Discharge Exam: Last value Range last 12 hrs Temperature Temp: 36.7 ??C (98.1 ??F) Temp: [36.7 ??C (98.1 ??F)] Heart Rate Heart Rate: 83 Heart Rate: -- Blood Pressure BP: 139/82 BP: (139-179)/(82-99) Respiratory Rate Resp: 20 Resp: [16-20] SpO2 SpO2: 98 % SpO2: [93 %-98 %] I/Os: I/O last 3 completed shifts: In: 830.6 [P.O.:765; I.V.:10; Other:55.6] Out: 3700 [Urine:3700] I/O this shift: In: - Out: 700 [Urine:700] Gen: NAD, alert & oriented x3 HEENT: normocephalic, atraumatic, EOMI, sclerae anicteric Pulm: non-labored breathing on RA Card: RRR Abd: Non-distended, soft, appropriately tender. Wound: incision clean, dry, intact, no purulent drainage Ext: warm, dry, no edema Neuro: A&Ox3, nonfocal, conversant Drains/lines at discharge: No drains Discharge Plans: Discharge to: Home VNA: No Discharge Conditions/Prognosis: Stable Discharge Medications: The following medications have been prescribed for you. If you notice any adverse reactions to your medications, please contact your primary care physician immediately or go tothe nearest Emergency Department. Your Medications New Medications Dose Details BD Ultra-Fine Micro Pen Needle 32 gauge x 1/4 Needle 1 each by [facility].(Non-Drug; Combo Route) route 2 times daily. Generic drug: Insulin [place] (Disposable) 1 each Quantity: 300 each Refills: 3 lidocaine 5% Adhesive Patch, Medicated Commonly known as: Lidoderm Apply 1 patch onto the skin daily. (leave on for 12 hours and remove for 12 hours) Quantity: 10 patch Refills: 0 oxyCODONE 5 mg tablet Commonly known as: Roxicodone Take 1-2 tablets by mouth every 4 hours as needed for Pain (5mg for moderate pain 4-6 not controlled with Tylenol, 10mg for severe pain 7-10 not controlled with Tylenol). 5-10 mg Quantity: 10 tablet Refills: 0 potassium chloride ER 10 mEq ER tablet Commonly known as: Klor-Con, K-Tab Take 1 tablet by mouth 2 times daily. 10 mEq Quantity: 30 tablet Refills: 0 Semglee(insulin glarg-yfgn)Pen 100 unit/mL (3 mL) Insulin Pen Inject 10 Units subcutaneously every morning. Or alternative covered by insurance 10 Units Quantity: 15 mL Refills: 3 Continued medications with new dosing Dose Details furosemide 20 mg tablet Commonly known as: Lasix Take 1 tablet by mouth 2 times daily. What changed: how much to take when to take this 20 mg Quantity: 180 tablet Refills: 3 Continued medications, unchanged Dose Details amLODIPine 10 mg tablet Commonly known as: Norvasc Take 1 tablet by mouth daily. 1 tablet Refills: 0 citalopram 10 mg tablet Commonly known as: CeleXA Take 10 mg by mouth daily. 10 mg Refills: 0 clindamycin 150 mg capsule Commonly known as: Cleocin Take 150 mg by mouth daily. 150 mg Refills: 0 cyanocobalamin (Vitamin B-12) 100 mcg tablet Commonly known as: Vitamin B-12 Take 100 mcg by mouth daily. 100 mcg Refills: 0 famotidine 20 mg tablet Commonly known as: Pepcid Take 20 mg by mouth 2 times daily. 20 mg Refills: 0 Farxiga 10 mg tablet Take 1 tablet by mouth daily. Generic drug: dapagliflozin propanediol 1 tablet Refills: 0 gabapentin 600 mg tablet Commonly known as: Neurontin Take 600 mg by mouth 3 times daily. 600 mg Refills: 0 LORazepam 0.5 mg tablet Commonly known as: Ativan Take 1 tablet by mouth as needed. 1 tablet Refills: 0 magnesium oxide 400 mg (241.3 mg magnesium) Tablet Commonly known as: Mag-Ox Take 1 tablet by mouth nightly. 1 tablet Refills: 0 montelukast 10 mg tablet Commonly known as: Singulair Take 10 mg by mouth daily. 10 mg Refills: 0 naltrexone 50 mg tablet Commonly known as: Depade Take 50 mg by mouth daily. 50 mg Refills: 0 ondansetron ODT 4 mg disintegrating tablet Commonly known as: Zofran-ODT Take 4 mg by mouth every 8 hours as needed for Nausea. 4 mg Refills: 0 tadalafiL 10 mg tablet Commonly known as: Cialis TAKE 1 TABLET BY MOUTH ONCE A DAY NEEDED. TAKE 1 HOUR PRIOR TO SEXUAL INTERCOURSE Refills: 0 Updated Allergies/ADRs: Allergies Allergen Reactions Penicillins Rash Scheduled Appointments: Future Appointments Date Time Provider Department Center 03/17/2024 9:30 AM Silvio Gilbert MD [facility] PLAS 4M [facility] 03/17/2024 10:[address] [facility] SURG [facility] 03/24/2024 2:00 PM Rudi Hernandez MD [facility] SURG [facility] Outpatient Services/Studies: CBC (with Diff) Standing Status: Future Standing Exp. Date: 03/08/25 Comprehensive metabolic panel (non-fasting) Standing Status: Future Standing Exp. Date: 03/08/25 Magnesium Standing Status: Future Standing Exp. Date: 03/08/25 Phosphorus Standing Status: Future Standing Exp. Date: 09/23/24 Instructions Given to Patient at Discharge:. An After Visit Summary was printed and given to the patient. Patient Instructions [facility] Surgery Discharge Instructions Who to call with questions or concerns: - During day hours call the nurses in the Surgery Clinic at [phone]. - During the night time hours call the hospital multiple tube winding machine operator [phone] and ask to speak to the general surgery resident television installer helper. Instructions for when you are home: Diet: Ok to eat a regular diet as tolerated. It is important to try to eat as much calories and protein as possible during recovery to aid in healing. You frequently may feel full easily or even havenausea. Take small meals at first and pace yourself. You may supplement your diet with nutritional shakes/drinks (Ensure, [place] Instant Breakfast, Boost) if possible. Enzymes: You may need to take take pancreatic enzyme capsules immediately before meals to maximize your nutrient digestion and absorption. Monitor stool consistency - you will discuss this with Dr. Hernandez and Donna Dewey RD to determine whether you would benefit starting these enzymes. Antacid medications: You should be on an antacid pill such as Proton Pump Inhibitors or H2 blockers such as: Nexium, Prilosec, Protonix or Pepcid. These medications prevent ulcers that can form at the connection between the stomach and intestine after the whipple operation. In addition an antacidwill help your own pancreatic enzymes work better to absorb nutrients. Continue taking your Pepcid as you were prior to surgery - twice daily x 1 year. Pain: 10 tablets of 5mg Oxycodone 1 -2 tablets every 6 hours as needed for pain (Disp# 10 tablets).Narcotic prescriptions can not be written with refills so make sure that you feel you have enough pain pills to allow you to feel comfortable for the next 2-4 weeks until you are seen by Dr. Delacruz [facility] for your first postop visit. This is a narcotic medication that has several side effects/warnings: 1. Constipation: Narcotics can cause severe constipation. Please take BOTH a stool softener and pro-motility/laxative agent whenever taking narcotics, unless otherwise advised. These are over the counter. (Stool Softeners: Colace, Surfak. Laxatives/Stimulants: Miralax, Milk of Magnesia, Senna, Bisacodyl). 2. Altered mental status: Narcotics can make you sleepy and have delayed reactions. Therefore, do not use alcohol, drive or operate any heavy machinery while taking narcotics. 3. Addictive: Narcotics are addictive. Please take as prescribed and wean down/decrease your dose as soon as you can tolerate. 4. Restricted: Narcotics are highly regulated. If you are running out of your prescription and feelyou will need more, plan ahead and call your Physician as these cannot be filled electronically or at night/over the weekend. Again, as your pain decreases, reduce your use of these medications. You do not need to use all of the pills provided. - Of course if you are not having a lot of pain then try to wean down the narcotics and try to use less pain pills, as tolerated. This also will help with issues of constipation. - Another good strategy is to take Tylenol 650 mg every 6 hours for pain relief. Please limit NSAIDuse (ibuprofen, Motrin, Aleve, etc) as these increase your risk of developing ulcers at the new connections between your stomach and small bowel. Other medications: - The remainder of your medications are listed in the first section of the After Visit Summary. - See multidisciplinary instructions below regarding instructions for your diabetes medications Incision: The skin incision(s) is closed with: Edd Usually the edd are removed anywhere from 7-14 days after the surgery. Your partner will be removing your edd - your edd will be due for removal on 03/15/24. Please have your partner apply mastisol and steri strips to the incision upon removal of the edd. Drains: 1) Your surgical drain was removed prior to discharge and a gauze/tape dressing was applied to the site. Remove dressing if it becomes wet/soiled and replace daily. Once the site is well-healed with no drainage you do not need to apply any more dressings. Activity: Be active as tolerated. You will be tired. This is normal. It is ideal if you are up and about as much as possible during the day. You are encouraged to go for walks outside for exercise, weather permitting. The more walking you can do the quicker your recovery. Walking also prevents blood clots. - Use common sense with regard to heavy lifting for approximately 4-6 weeks after surgery or until you are seen by Dr. Delacruz for your postop check in the clinic. Shower: Yes, showering is encouraged and ok. Refrain from baths until approximately 4 weeks after surgery. It is OK to get the incision wet. Follow up appointments: You should have your follow up appointment date and time in 4L scheduled before your discharge. Ask you nurse if this has been scheduled with Dr. Delacruz's office [phone]. In most cases Dr. Delacruz will order blood work to be done on the day of your post op clinic appointment. This decision is made on a [id number]-io-[id number] basis so ask if this is necessary and plan to come to [facility] pr ior to the appointment to get the blood work done in 3L as instructed. - Of course, if you are being discharged on a weekend and Dr. Delacruz's office is closed then call the office [phone] first thing Friday. Future Appointments Date Time Provider Department Center 03/17/2024 9:30 AM Silvio Gilbert MD [facility] PLAS 4M [facility] 03/17/2024 10:[address] [facility] SURG [facility] 03/24/2024 2:00 PM Rudi Hernandez MD [facility] SURG [facility] You have been scheduled for a follow-up with our outpatient utilities service investigator Donna Dewey RD to review your nutrition postoperatively - this has been coordinated to occur the same day you are here seeing plastic surgery. I reached out to your ict account manager Dr. Maxwell's office to request follow-up with nephrology on either 03/17 or 03/24 to coincide with visits above. I was informed that Dr. Maxwell is retiring and you will be scheduled with another provider - they will reach out to you directly to schedule this appointment. If you do not hear from them please call the Nephrology Department directly at Other Homework: Know what medications you are taking and take charge of knowing this information. Ask your nurse for the Pocket Medication List to fill in the relevant medications including the medications you were on before surgery in addition to the ones you are being discharged with. You and your nurse can make sure this list matches the list in our computer system so there are no fumbles. If you have concerns or questions: - During the day it is best to call the [facility] General Surgery Clinic to speak with the surgery nurses.The number is [phone]. - During the night call the [facility] multiple tube winding machine operator and ask to speak to the surgery resident television installer helper for general surgery. General Instructions Diabetes Discharge Instructions & Recommendations Check your blood sugars when you wake up and before bedtime - keep a log to take to your appointments. Restart Farxiga 10mg QD Restart Metformin 1000mg twice daily with meals. Insulin: You are requiring daily insulin to keep your blood sugars under 180. We are discharging you with insulin glargine once daily - instructions below. Follow-up with Primary care provider in the next 2-4 weeks for further diabetes management. Instructions for insulin glargine (Lantus) Insulin (LONG ACTING) Please inject Lantus 12 units every morning. If your fasting blood sugars are above 150mg/dl two days in a row, please increase your Lantus by 2units. If your fasting blood sugars are below 90mg/dl two days in a row, please decrease your Lantus by 2 units. This dose now becomes your new daily [...] Orders Future Appointments Provider Department Dept Phone 03/17/2024 9:30 AM Silvio Gilbert MD Plastic Surgery at [facility] Arrive at: [facility] 4M [phone] 03/17/2024 10:[address] General Surgery at [facility] Arrive at: [facility] [phone] 03/24/2024 2:00 PM Rudi Hernandez MD General Surgery at [facility] Arrive at: [facility] [phone] Please dispose of unused excess opioids before your appointment or bring them with you to the appointment and we will help you dispose of them correctly. Future Orders Complete By Expires CBC (with Diff) [EVT535 Custom] 03/24/2024 03/08/2025 Process Instructions: INCLUDES: WBC, RBC, Hgb, Hct, Platelets, RBC Indices and Differential Scheduling Instructions: Comments: Questions: Comprehensive metabolic panel (non-fasting) [LAB17 Custom] 03/24/2024 (Approximate) 03/08/2025 Process Instructions: INCLUDES: Calcium, T Protein, Albumin, AST, ALT, Alk Phos, T Bili, BUN, Creat, GFR, Glucose, Lytes. Scheduling Instructions: Comments: Questions: Magnesium [XYJ663 Custom] 03/24/2024 03/08/2025 Process Instructions: Scheduling Instructions: Comments: Questions: Phosphorus [[id number] Custom] 03/24/2024 09/23/2024 Process Instructions: Scheduling Instructions: Comments: Questions: Discharge References/Attachments: Discharge References/Attachments None Follow-up Recommendations for Providers: Medication changes: Insulin Lantus 10 u nightly added due to whipple procedure Diet changes: No change has been made to diet CC: Olga Hoffman APRN [phone] Signed: Tiffanie Pabon MD Surgical Oncology Service Team Pager #[phone] 03/08/2024 1:48 PM For questions regarding this document or issues relating to this hospitalization on the Surgical Oncology Service, please contact Rudi Hernandez MD's office at [phone] documented in this encounter Discharge Instructions * Discharge Instructions* Kristen Meza, YOCASTA - 03/05/2024 3:03 PM EDT Diabetes Discharge Instructions & Recommendations Check your blood sugars when you wake up and before bedtime - keep a log to take to your appointments. Restart Farxiga 10mg QD Restart Metformin 1000mg twice daily with meals. Insulin: You are requiring daily insulin to keep your blood sugars under 180. We are discharging you with insulin glargine once daily - instructions below. Follow-up with Primary care provider in the next 2-4 weeks for further diabetes management. Instructions for insulin glargine (Lantus) Insulin (LONG ACTING) Please inject Lantus 12 units every morning. If your fasting blood sugars are above 150mg/dl two days in a row, please increase your Lantus by 2units. If your fasting blood sugars are below 90mg/dl two days in a row, please decrease your Lantus by 2 units. This dose now becomes your new daily [...] juice or regular (not diet) soda 6 Postmatess small box of raisins 4 glucose tablets [...] your insulin doses adjusted. * Patient Instructions* Tiffanie Pabon MD - 03/05/2024 12:57 PM EDT [facility] Surgery Discharge Instructions Who to call with questions or concerns: - During day hours call the nurses in the Surgery Clinic at [phone]. - During the night time hours call the hospital multiple tube winding machine operator [phone] and ask to speak to the general surgery resident television installer helper. Instructions for when you are home: Diet: Ok to eat a regular diet as tolerated. It is important to try to eat as much calories and protein as possible during recovery to aid in healing. You frequently may feel full easily or even havenausea. Take small meals at first and pace yourself. You may supplement your diet with nutritional shakes/drinks (Ensure, [place] Instant Breakfast, Boost) if possible. Enzymes: You may need to take take pancreatic enzyme capsules immediately before meals to maximize your nutrient digestion and absorption. Monitor stool consistency - you will discuss this with Dr. Hernandez and Donna Dewey RD to determine whether you would benefit starting these enzymes. Antacid medications: You should be on an antacid pill such as Proton Pump Inhibitors or H2 blockers such as: Nexium, Prilosec, Protonix or Pepcid. These medications prevent ulcers that can form at the connection between the stomach and intestine after the whipple operation. In addition an antacidwill help your own pancreatic enzymes work better to absorb nutrients. Continue taking your Pepcid as you were prior to surgery - twice daily x 1 year. Pain: 10 tablets of 5mg Oxycodone 1 -2 tablets every 6 hours as needed for pain (Disp# 10 tablets).Narcotic prescriptions can not be written with refills so make sure that you feel you have enough pain pills to allow you to feel comfortable for the next 2-4 weeks until you are seen by Dr. Delacruz [facility] for your first postop visit. This is a narcotic medication that has several side effects/warnings: 1. Constipation: Narcotics can cause severe constipation. Please take BOTH a stool softener and pro-motility/laxative agent whenever taking narcotics, unless otherwise advised. These are over the counter. (Stool Softeners: Colace, Surfak. Laxatives/Stimulants: Miralax, Milk of Magnesia, Senna, Bisacodyl). 2. Altered mental status: Narcotics can make you sleepy and have delayed reactions. Therefore, do not use alcohol, drive or operate any heavy machinery while taking narcotics. 3. Addictive: Narcotics are addictive. Please take as prescribed and wean down/decrease your dose as soon as you can tolerate. 4. Restricted: Narcotics are highly regulated. If you are running out of your prescription and feelyou will need more, plan ahead and call your Physician as these cannot be filled electronically or at night/over the weekend. Again, as your pain decreases, reduce your use of these medications. You do not need to use all of the pills provided. - Of course if you are not having a lot of pain then try to wean down the narcotics and try to use less pain pills, as tolerated. This also will help with issues of constipation. - Another good strategy is to take Tylenol 650 mg every 6 hours for pain relief. Please limit NSAIDuse (ibuprofen, Motrin, Aleve, etc) as these increase your risk of developing ulcers at the new connections between your stomach and small bowel. Other medications: - The remainder of your medications are listed in the first section of the After Visit Summary. - See multidisciplinary instructions below regarding instructions for your diabetes medications Incision: The skin incision(s) is closed with: [place] Usually the edd are removed anywhere from 7-14 days after the surgery. Your partner will be removing your edd - your edd will be due for removal on 03/15/24. Please have your partner apply mastisol and steri strips to the incision upon removal of the edd. Drains: 1) Your surgical drain was removed prior to discharge and a gauze/tape dressing was applied to the site. Remove dressing if it becomes wet/soiled and replace daily. Once the site is well-healed with no drainage you do not need to apply any more dressings. Activity: Be active as tolerated. You will be tired. This is normal. It is ideal if you are up and about as much as possible during the day. You are encouraged to go for walks outside for exercise, weather permitting. The more walking you can do the quicker your recovery. Walking also prevents blood clots. - Use common sense with regard to heavy lifting for approximately 4-6 weeks after surgery or until you are seen by Dr. Delacruz for your postop check in the clinic. Shower: Yes, showering is encouraged and ok. Refrain from baths until approximately 4 weeks after surgery. It is OK to get the incision wet. Follow up appointments: You should have your follow up appointment date and time in 4L scheduled before your discharge. Ask you nurse if this has been scheduled with Dr. Delacruz's office [phone]. In most cases Dr. Delacruz will order blood work to be done on the day of your post op clinic appointment. This decision is made on a [id number] basis so ask if this is necessary and plan to come to [facility] pr ior to the appointment to get the blood work done in 3L as instructed. - Of course, if you are being discharged on a weekend and Dr. Delacruz's office is closed then call the office [phone] first thing Friday. Future Appointments Date Time Provider Department Center 03/17/2024 9:30 AM Silvio Gilbert MD [facility] PLAS 4M [facility] 03/17/2024 10:[address] [facility] 03/24/2024 2:00 PM Rudi Hernandez MD [facility] [place] [facility] You have been scheduled for a follow-up with our outpatient utilities service investigator Donna Dewey RD to review your nutrition postoperatively - this has been coordinated to occur the same day you are here seeing plastic surgery. I reached out to your ict account manager Dr. Maxwell's office to request follow-up with nephrology on either 03/17 or 03/24 to coincide with visits above. I was informed that Dr. Maxwell is retiring and you will be scheduled with another provider - they will reach out to you directly to schedule this appointment. If you do not hear from them please call the Nephrology Department directly at Other Homework: Know what medications you are taking and take charge of knowing this information. Ask your nurse for the Pocket Medication List to fill in the relevant medications including the medications you were on before surgery in addition to the ones you are being discharged with. You and your nurse can make sure this list matches the list in our computer system so there are no fumbles. If you have concerns or questions: - During the day it is best to call the [facility] to speak with the surgery nurses.The number is [phone]. - During the night call the [facility] multiple tube winding machine operator and ask to speak to the surgery resident television installer helper for general surgery. documented in this encounter Medications at Time of Discharge Medication Sig Dispensed Refills Start Date End Date potassium chloride ER (Klor-Con, K-Tab) 10 mEq ER tablet Take 1 tablet by mouth 2 times daily. 30 tablet 03/08/[address], Disposable, (BD Ultra-Fine Micro Pen Needle) 32 gauge x 1/4 Needle 1 each by [facility].(Non-Drug; Combo Route) route 2 times [...] 2 times daily. 180 tablet 3 02/15/2021 lidocaine (Lidoderm) 5% Adhesive Patch, Medicated Apply 1 patch onto the skin daily. (leave on for 12 hours and remove for 12 hours) 10 patch 03/08/2024 04/01/2024 oxyCODONE (Roxicodone) 5 mg tablet Take 1-2 tablets by mouth every 4 hours as needed for Pain (5mg for moderate pain 4-6 not controlled with Tylenol, 10mg for severe pain 7-10 not controlled with Tylenol). 10 tablet 03/08/2024 04/08/2024 insulin glargine-yfgn (Semglee,insulin glarg-yfgn,Pen) 100 unit/mL (3 mL) Insulin Pen Inject 10 Units subcutaneously every morning. Or alternative covered by insurance 15 mL 3 03/05/2024 04/01/2024 clindamycin (Cleocin) 150 mg capsule Take 150 mg by mouth daily. 02/26/2024 03/24/2024 LORazepam (Ativan) 0.5 mg tablet Take 1 tablet by mouth as needed. 02/23/2024 03/24/2024 Farxiga 10 mg tablet Take 1 tablet by mouth daily. 04/01/2024 cyanocobalamin, Vitamin B-12, (Vitamin B-12) 100 mcg tablet Take 100 mcg by mouth daily. 03/24/2024 ondansetron ODT (Zofran-ODT) 4 mg disintegrating tablet Take 4 mg by mouth every 8 hours as needed for Nausea. 04/01/2024 famotidine (Pepcid) 20 mg tablet Take 20 mg by mouth 2 times daily. 03/24/2024 documented as of this encounter Progress Notes * Mae Velazquez RN - 03/08/2024 2:33 PM EDT Pt discharged home. AVS reviewed with pt and . Questions answered. IV removed. Pt brought to discharge entrance in wheelchair. * Miki Harrell, PT - 03/08/2024 12:45 PM EDT Physical Therapy treatment note 2 Patient profile: Charles Nick is a 48 y.o. male h/x of of hypertension, chronic kidney disease, biopsy-proven fatty liver disease, type 2 diabetes on Trulicity, and a newly diagnosed duodenal adenocarcinoma who is now 1 Day Post- Op s/p Whipple procedure with Billroth II reconstruction. BASIA drain placement, epidural, bailey and NGT. Tx to 4 from PACU Patient with the following active problems: Past Medical History: Diagnosis Date CKD (chronic kidney disease) stage 3, GFR 30-59 ml/min 01/31/2011 Obesity 01/31/2011 Past Surgical History: Procedure Laterality Date IR BIOPSY LIVER PERCUTANEOUS - NON-FOCAL PARENCHYMA 01/07/2023 IR Biopsy Liver Percutaneous 01/07/2023 Juan Wright MD [facility] INTERVENTIONL RAD PRO PART REMV PANC, PROX+REMV DUOD+ANAST N/A 03/01/2024 @WHIPPLE PROCEDURE (WRVU 52.84) performed by Rudi Hernandez MD at [facility] MAIN OR PRO TRANSFER SKIN PEDICLE FLAP N/A 03/01/2024 TRANSFER, INTERMEDIATE, ANY PEDICLE FLAP, ANY LOCATION (WRVU 4.77) performed by Rudi Hernandez MD at [facility] MAIN OR Social History:Home set-up: Lives with his partner, Jenelle, in a 2 story house Stairs: 15 TANJA with rails, Baseline Mobility: Ambulates without an AD. Works FT Equipment at home: CPAP Fall history: denies falls Precautions/Special Considerations: Full Code, fall risk Lines: Rui, Activity Orders (From admission to next 72h) Start Ordered 03/01/24 2200 Ambulate in Hallway - Therapeutic Walk in Hallway 4 TIMES DAILY Comments: Therapeutic walk in hallway four times per day. 03/01/24192303/01/241924 Ambulate patient Now Then Q4H NOW THEN EVERY 4 HOURS 03/01/241923 Unscheduled Up in chair POD#0 PRN Comments: Starting POD #0 03/01/241923 Diet: advanced Mobility and Positioning Recommendations: Pt. to utilize front-wheeled walker for transfers and ambulation with nursing. Please encourage up to chair for meal times as able. Pt encouraged to ambulate frequently with staff, getting into the bathroom for toileting and walking out in the [place] >/= 3 times daily as able. Subjective: ???I'm ready to go home?? not sleeping well here Objective: Pt seen for physical therapy today. Pain: well controlled with oral meds Vital Signs / Cardiopulmonary: stable on RA, uses CPAP Mental Status: WNL, eager to get home Vision: reading glasses Skin: abdominal incision, healing ulcer on R great toe base of 3rd metatarsal Bed Mobility: pt has been independent with bed mobility Transfers: Sit to Stand: Independent from EOB no device Stand to Sit: Independent , fair eccentric control Gait: 150 ft without a device, steady gait, decreased dmitry Stairs: 13 stairs with reciprocal gait, 2 rails, also able to descend with B rails as well as sidestepping Balance: Sitting Static: Fair+ Sitting Dynamic: Fair Standing Static: Fair with a front-wheeled walker Standing Dynamic/Gait: Fair- with a front-wheeled walker Education/Exercise Instruction: precautions, ankle pumps, positioning, transfers, goals, safety Pt left upright in bed, with bed alarm on, call ibarra in place, all needs met. RN updated post PT session. Assessment: Charles Nick was seen today for physical therapy continuation of POC. Pt is now ambulating without a device, transferring without assist and was able to negotiate a FOS without issue. Pt has good support from his s.o who is an RN. Anticipate he will continue to improve with activity tolerance with improved sleep. No further inpt PT needs. No Home PT needed Plan: discharge inpatient Physical Therapy services Patient/family understand and agree with plan as stated above. Discharge Recommendations: Based on current functional status- home Consult Recommendations: No other consults recommended at this time. Equipment needs for home at d/c: None Goals: To be achieved by 03/14: Pt will tolerate progression towards upright with stable vital signs. MET Pt. will demonstrate understanding of appropriate exercises and perform them independently or with family. MET Pt. to perform bed mobility with modified independence with HOB flat. MET Pt. to perform transfers independently . MET Pt. will ambulate 150 feet with modified independence using a LRD . Independent without a device Pt. to ambulate up/down 15 step/stairs using one rail with supervision. MET Family or caregiver to demonstrate understanding of therapeutic interventions to support the care of the patient. MET Patient status, treatment, and mobility recommendations have been discussed with nursing. Time IN / OUT: 12:35-12:45 Total Time: 10 minutes, TEF Thank you for this consult. MIKI HARRELL, PT Pager: [phone] Physical Therapy Inpatient Rehabilitation Department * Diane Sexton MD - 03/07/2024 9:52 AM EDT Acute Pain Medicine Service - Epidural Daily Management VITAL SIGNS: Visit Vitals BP (!) 168/95 (BP Location (NBP): Right arm, Patient Position: Lying) Pulse 83 Temp 36.5 ??C (97.7 ??F) (Oral) Resp 16 Ht 188 cm (6' 2) Wt (!) 138.6 kg (305 lb 8.9 oz) SpO2 95% BMI 39.23 kg/m?? Body mass index is 39.23 kg/m??. Labs: WBC Date Value Ref Range Status 03/07/2024 8.0 4.0 - 9.5 x10(3)/mcL Final Hemoglobin Date Value Ref Range Status 03/07/2024 11.9 (L) 13.7 - 16.5 g/dL Final Hematocrit Date Value Ref Range Status 03/07/2024 37.5 (L) 40.5 - 48.5 % Final Platelets Date Value Ref Range Status 03/07/2024 230 145 - 357 x10(3)/mcL Final PT Date Value Ref Range Status 12/25/2022 12.3 9.4 - 12.5 sec Final Operative Procedures: Procedure(s): @WHIPPLE PROCEDURE (WRVU 52.84) TRANSFER, INTERMEDIATE, ANY PEDICLE FLAP, ANY LOCATION (WRVU 4.77) APS Opioid Administration Hx All administrations since 03/06/2024 are shown below each listed medication. Other Order Route Rate Dose Action Date HYDROmorphone (pf) (10 mcg/mL), BUpivacaine (pf) 0.1% in sodium chloride 0.9% 250 mL epidural Epidural Rate/Dose Change 03/07/2024 HYDROmorphone (pf) (10 mcg/mL), BUpivacaine (pf) 0.1% in sodium chloride 0.9% 250 mL epidural Epidural 250 mL New Bag 03/06/2024 oxyCODONE (Roxicodone) tablet 5 mg Oral 5 mg Given 03/06/2024 APMS EPIDURAL ROUNDING: Average Numeric Rating Pain Score (0-10): 0 Post-Op Day: 6 Epidural Day: 7 Epidural Infusion (solution): HYDROmorphone 10 mcg/mL and BUpivacaine 0.1% Epidural Infusion Rate: 3 mL per hour PCEA Dose: 3 mL every 20 minutes PRN Out of Bed: Yes Ambulation: Yes Able to Use Incentive Spirometry: Yes Escalation of Care: No Tolerating Regular Diet: No Ileus: No Epidural Catheter Removed (Intact unless noted in Comments): Yes 03/07/2024 10:30 AM Mr. Nick has continued to tolerate the weaned settings on the epidural well, with further reduction in pain scores. Pt has had resolution of nausea since the one episode of emesis the night prior, and has had two bowel movements in the last twenty-four hours. Diet is scheduled to be advanced this morning. Pt has been ambulating well, and has been able to rest also. Pt received ppx Lovenox at 2200, so will plan to remove the epidural catheter after 1000 this AM. Pt transitioned to PCEA only at 3 ml Q 20 min at 0800 in anticipation of epidural discontinuation. 1030: Epidural removed without event, tip intact. Insertion area cleaned and dried. Pt with PO analgesics available, and will plan to administer with crackers/toast this morning as diet just advanced. Pt's RN, Bernadette, present at bedside, and discussed with pt and his support person, Claritza. Attending Physician:: Diane Sexton MD * Tiffanie Pabon MD - 03/07/2024 8:26 AM EDT Surgical Oncology Inpatient Progress Note Patient Name: Charles Nick ; Age: 4 1975; 48 y.o. Room/Bed: 404/404-B Today's Date: 03/07/24 ID: Charles Nick is a 48 y.o. male with PMH of hypertension, chronic kidney disease, biopsy-proven fatty liver disease, type 2 diabetes on Trulicity, and a newly diagnosed duodenal adenocarcinoma who is now 6 Days Post-Op s/p Whipple procedure with Billroth II reconstruction. 24 Hour Events: Diet backed to clear liquid diet due to emesis the prior night Had no nausea or emesis since yesterday Had x 2 bowel movement after he was given suppository Electrolyte (K) repleted, K this AM 3.8 Had episodes of hypotension overnight, SBP high to 170 Voiding without issue, adequate urine output of 0.9 cc/kg/h Subjective: He has back pain, denies any nausea or vomiting, no abdominal bloating, passing gas and has a bowelmovementS, no fever chills, chest pain, shortness of breath or cough Hospital Course: 03/01/24: To OR for open Whipple procedure with Billroth II reconstruction, BASIA drain placed at HJ and PJ anastomosis. 200 mL EBL. Epidural, bailey, NGT in place. 03/02 POD1: BASIA amylase hemolyzed x 3 attempts. Fluid boluses for oliguria, Cr WNL. DM ACID ADJUSTER recommendedstarting Lantus 8u daily. Seen by wound care for foot ulcer present on admission and followed by outpatient podiatry - treating plantar ulcer with viktoriya, leaving hallux open to air. 03/03 POD2: BASIA amylase 645. Creatinine up from 0.8 to 1.16 with continued poor UOP, FENA suggestive of prerenal REAL. He was given Crystalloids and Albumin for the resuscitation. Plan to watch UOP closely and monitor response to alternating LR boluses/albumin PRN. Urine output improved with IV lasix 20 mg x 1. NGT removed after successful clamp trial. Advanced to CLD with 500 mL limit. 03/04 POD3: BASIA amylase 395. Home Lasix 40mg PO BID started. Advanced to clear liquids with toast. Lantus increased to 10u per endocrine recs. 03/05 POD4: Diet advanced to carb controlled diet, Epidural decreased by half dose, Oral oxycodone added, Medication changed to oral route, Bowel regimen including suppository provided, IV fluid DC'd,Bailey removed, required insertion of straight catheter for of failed void trial, continued voiding without issue overnight, Anxiety medication resumed, BASIA amylase within normal limit (32) 03/06 POD5: had 1 episode of emesis overnight, HAS associated mild nausea, potassium 3.4, repleted, KUB no sign of ileus, backed to clear liquid diet, giving suppository, had a bowel movement after suppository 03/07 POD23: PRN labetalol started, diet advanced to carb controlled diet, anticipate weaning of epidural per APS Objective Physical Exam Vitals: Temp: [36.3 ??C (97.3 ??F)-36.8 ??C (98.2 ??F)] Heart Rate: -- Resp: [16-17] BP: (147-170)/(93-106) SpO2: [94 %-98 %] Heart Rate from SpO2: [74 bpm-88 bpm] 03/06 0701 - 03/07 0700 In: 644 [P.O.:320] Out: 2825 [Urine:2825] Gen: NAD, resting comfortably, pleasant, conversant HEENT: sclerae nonicteric CV : RRR Pulm: breathing comfortably on RA, no respiratory distress Abd: non-distended, soft, nontender, incision site clean/dry/intact without any signs of erythema or induration, ostomy appliance on right upper quadrant of the BASIA removal site with no output : no bailey Ext: SCDs in place. Skin: warm, dry Labs: Last 3 wbc, hgb, hct plt Recent Labs 03/07/24 0453 03/06/24 0409 03/05/24 0421 WBC 8.0 7.5 8.6 HGB 11.9* 12.1* 11.5* HCT 37.5* 38.4* 36.5* PLATELET 230 220 165 Last 3 Lytes Recent Labs 03/07/24 0453 03/06/24 0409 03/05/24 0421 NA 136 135 135 K 3.8 3.4* 3.3* CL 99 98 100 CO2 25 27 26 BUN 5* 6* 6* CREATININE 0.67* 0.70* 0.80 Last 3 LFTs Recent Labs 03/07/24 0453 03/06/24 0409 03/05/24 0421 AST 11 12 14 ALT 25 36 45 ALKPHOS 88 86 79 BILITOT 0.4 0.4 0.4 Last Ca, Mg, Phos Recent Labs 03/07/24 0453 03/03/24 1313 03/03/24 0104 CALCIUM 8.4* < > 8.1* PHOS -- -- 2.2* MAGNESIUM -- -- 0.78 < > = values in this interval not displayed. Drains: - Ostomy appliance at BASIA site with no output Assessment: Charles Nick is a 48 y.o. male with PMH of hypertension, chronic kidney disease, biopsy-proven fatty liver disease, type 2 diabetes on Trulicity, and a newly diagnosed duodenal adenocarcinoma who is now 6 Days Post-Op s/p Whipple procedure with Billroth II reconstruction. Mr. Charles Nick is overall doing good and recovering well from his procedure. He had no nausea or ongoing vomiting after he experienced 1 episode of emesis the prior night. He had bowel movement after receiving suppository. Overnight he had episodes of increased blood pressure so we will give him labetalol as needed to control his blood pressure. We will anticipate weaning of the epidural per APS and provide him prn anti pain meds to control the pain. PROBLEM BASED PLANS: #Post whipple pain control PCEA per APS--beginning wean 03/05, anticipate removing the epidural today (03/07) Scheduled PO Tylenol Lidoderm Oxycodone 5 - 10 mg q4h prn #Prerenal REAL - resolved Cr up to 1.16 on POD2 - treated with fluid boluses and albumin Cr down to 0.67 03/05 CR today (03/07) 0.7 #HTN 10 mg IV PRN Labetalol Will add Hydralazine if BP not controlled with Labetalol #Post-whipple bowel function Pericolace BID and Miralax QD, dulcolax #Post-whipple anastomotic monitoring BASIA amylase POD1 hemolyzed, POD2 645, POD3 395 JPA obtained at noon yesterday was wnl 32 (03/05) #Monitoring for Post-pancreatectomy acquired diabetes diabetic preop, appreciate endocrine recs: increased lantus to 10u 03/04 #Post-whipple bile contamination/infection prevention Intraoperative bile cultures with NGTD, CTM for final culture data #Post-operative pulmonary function Incentive spirometry, ambulation #Marginal ulcer and DVT prophylaxis PPI PO BID, avoid NSAIDs Lovenox QHS, SCDs #Tubes/lines/drains Ostomy appliance at BASIA removal site Bailey catheter--removed 03/05 #Home Medications Celexa 10 mg RESUME amlodipine 10 mg HOLD gabapentin RESUME furosemide HOLD farxiga- awaiting endocrine recs RESUME prn Ativan Dispo: Floor status Code status: Attempt Cardiopulmonary Resuscitation - Inpatient Signed: Tiffanie Pabon MD Surgical Oncology Service Team Pager #[phone] 03/07/24 8:33 AM * Diane Sexton MD - 03/06/2024 1:00 PM EDT Acute Pain Medicine Service - Epidural Daily Management VITAL SIGNS: Visit Vitals BP (!) 170/106 (BP Location (NBP): Right arm, Patient Position: Sitting) Pulse 83 Temp 36.3 ??C (97.3 ??F) (Oral) Resp 17 Ht 188 cm (6' 2) Wt (!) 139.4 kg (307 lb 4.8 oz) SpO2 98% BMI 39.45 kg/m?? Body mass index is 39.45 kg/m??. Labs: WBC Date Value Ref Range Status 03/06/2024 7.5 4.0 - 9.5 x10(3)/mcL Final Hemoglobin Date Value Ref Range Status 03/06/2024 12.1 (L) 13.7 - 16.5 g/dL Final Hematocrit Date Value Ref Range Status 03/06/2024 38.4 (L) 40.5 - 48.5 % Final Platelets Date Value Ref Range Status 03/06/2024 220 145 - 357 x10(3)/mcL Final PT Date Value Ref Range Status 12/25/2022 12.3 9.4 - 12.5 sec Final Operative Procedures: Procedure(s): @WHIPPLE PROCEDURE (WRVU 52.84) TRANSFER, INTERMEDIATE, ANY PEDICLE FLAP, ANY LOCATION (WRVU 4.77) APS Opioid Administration Hx All administrations since 03/05/2024 are shown below each listed medication. Other Order Route Rate Dose Action Date oxyCODONE (Roxicodone) tablet 5 mg Oral 5 mg Given 03/06/2024 Oral 5 mg Given 03/05/2024 HYDROmorphone (pf) (10 mcg/mL), BUpivacaine (pf) 0.1% in sodium chloride 0.9% 250 mL epidural Epidural 250 mL New Bag 03/05/2024 Epidural Rate/Dose Change 03/05/2024 APMS EPIDURAL ROUNDING: Average Numeric Rating Pain Score (0-10): 4 Post-Op Day: 5 Epidural Day: 6 Epidural Infusion (solution): HYDROmorphone 10 mcg/mL and BUpivacaine 0.1% Epidural Infusion Rate: 3 mL per hour PCEA Dose: 3 mL every 20 minutes PRN Out of Bed: Yes Ambulation: Yes Able to Use Incentive Spirometry: Yes Escalation of Care: No Tolerating Regular Diet: No Ileus: No Epidural Catheter Removed (Intact unless noted in Comments): No Mr. Nick tolerated reduction in the epidural infusion rate without issue, though did notice an slight increase in discomfort. Pt did have an episode of emesis overnight, but denies nausea at presentand has been able to pass flatus minimally. Pt has continued to ambulate without issue and is moving well. After discussion with pt and episode of nausea overnight, will plan to continue epidural analgesia throughout the day and overnight, with plans to pause the continuous infusion in the AM of 03/07 on ED 7, with plans for likely discontinuation thereafter. Attending Physician:: Diane Sexton MD * Tiffanie Pabon MD - 03/06/2024 8:54 AM EDT Surgical Oncology Inpatient Progress Note Patient Name: Charles FLANAGAN; Age: 4 1975; 48 y.o. Room/Bed: 404/404-B Today's Date: 03/06/24 ID: Charles Nick is a 48 y.o. male with PMH of hypertension, chronic kidney disease, biopsy-proven fatty liver disease, type 2 diabetes on Trulicity, and a newly diagnosed duodenal adenocarcinoma who is now 5 Days Post-Op s/p Whipple procedure with Billroth II reconstruction. 24 Hour Events: Diet advanced to carb controlled diet Epidural decreased by half dose Medication changed to oral route Oral oxycodone added Bowel regimen including suppository provided IV fluid DC'd Bailey removed, required insertion of straight catheter for of failed void trial Patient continued voiding without issue overnight Anxiety medication resumed BASIA amylase within normal limit (32) Patient had 1 episode of emesis overnight Also had an associated mild nausea A.m. potassium 3.4, repleted KUB no sign of ileus Subjective: Had mild nausea, no more emesis after he had emesis overnight, no burping, still feels mild abdominal discomfort, denies any chest pain, cough, shortness of breath, fever chills or rigors. Hospital Course: 03/01/24: To OR for open Whipple procedure with Billroth II reconstruction, BASIA drain placed at HJ and PJ anastomosis. 200 mL EBL. Epidural, bailey, NGT in place. 03/02 POD1: BASIA amylase hemolyzed x 3 attempts. Fluid boluses for oliguria, Cr WNL. DM ACID ADJUSTER recommendedstarting Lantus 8u daily. Seen by wound care for foot ulcer present on admission and followed by outpatient podiatry - treating plantar ulcer with viktoriya, leaving hallux open to air. 03/03 POD2: BASIA amylase 645. Creatinine up from 0.8 to 1.16 with continued poor UOP, FENA suggestive of prerenal REAL. He was given Crystalloids and Albumin for the resuscitation. Plan to watch UOP closely and monitor response to alternating LR boluses/albumin PRN. Urine output improved with IV lasix 20 mg x 1. NGT removed after successful clamp trial. Advanced to CLD with 500 mL limit. 03/04 POD3: BASIA amylase 395. Home Lasix 40mg PO BID started. Advanced to clear liquids with toast. Lantus increased to 10u per endocrine recs. 03/05 POD4: Diet advanced to carb controlled diet, Epidural decreased by half dose, Oral oxycodone added, Medication changed to oral route, Bowel regimen including suppository provided, IV fluid DC'd,Bailey removed, required insertion of straight catheter for of failed void trial, continued voiding without issue overnight, Anxiety medication resumed, BASIA amylase within normal limit (32) 03/06 POD5: had 1 episode of emesis overnight, HAS associated mild nausea, potassium 3.4, repleted, KUB no sign of ileus, backed to clear liquid diet, giving suppository, consider enema if no bowel movement Objective Physical Exam Vitals: Temp: [36.5 ??C (97.7 ??F)-37.2 ??C (99 ??F)] Heart Rate: -- Resp: [16-19] BP: (143-168)/(81-99) SpO2: [93 %-97 %] Heart Rate from SpO2: [73 bpm-93 bpm] 03/05 0701 - 03/06 0700 In: 841 [P.O.:540; I.V.:139] Out: 1240 [Urine:1175; Drains:65] Gen: NAD, resting comfortably, pleasant, conversant HEENT: sclerae nonicteric CV : RRR Pulm: breathing comfortably on RA, no respiratory distress Abd: non-distended, soft, minimally tender, incision with edd well- approximated, clean/dry/intact without erythema or induration. Ostomy appliance at the BASIA drain site with minimal straw colored output : no bailey Ext: SCDs in place. Skin: warm, dry Labs: Last 3 wbc, hgb, hct plt Recent Labs 03/06/24 0409 03/05/24 0421 03/04/24 0612 WBC 7.5 8.6 11.6* HGB 12.1* 11.5* 11.7* HCT 38.4* 36.5* 37.1* PLATELET 220 165 165 Last 3 Lytes Recent Labs 03/06/24 0409 03/05/24 0421 03/04/24 0612 NA 135 135 135 K 3.4* 3.3* 3.5 CL 98 100 100 CO2 27 26 25 BUN 6* 6* 8* CREATININE 0.70* 0.80 0.76* Last 3 LFTs Recent Labs 03/06/24 0409 03/05/24 0421 03/04/24 0612 AST 12 14 19 ALT 36 45 68* ALKPHOS 86 79 84 BILITOT 0.4 0.4 0.4 Last Ca, Mg, Phos Recent Labs 03/06/24 0409 03/03/24 1313 03/03/24 0104 CALCIUM 8.6 < > 8.1* PHOS -- -- 2.2* MAGNESIUM -- -- 0.78 < > = values in this interval not displayed. Drains: -BASIA 110cc thin SS output Assessment: Charles Nick is a 48 y.o. male with PMH of hypertension, chronic kidney disease, biopsy-proven fatty liver disease, type 2 diabetes on Trulicity, and a newly diagnosed duodenal adenocarcinoma who is now 5 Days Post-Op s/p Whipple procedure with Billroth II reconstruction. Mr. Charles Nick is overall recovering well from his procedure. Yesterday, diet advanced to carb controlled diet, Epidural decreased by half dose, Oral oxycodone added, Medication changed to oral route, IV fluid DC'd and suppository provided. Bailey removed however required insertion of straight catheter due to urinary retention. Overnight patient voided without issue. He had 1 episode of emesisand associated nausea overnight. He had hypokalemia of 3.4 however KUB showed no features of ileus.Today we backed up his diet from regular to clear liquid diet and will give suppository to help with bowel movement. Will consider enema if no success with the suppository. We will also continue replating electrolytes as needed. PROBLEM BASED PLANS: #Post whipple pain control PCEA per APS--beginning wean 03/05, anticipate removing the epidural Scheduled PO Tylenol Lidoderm Oxycodone 5 mg q4h prn, consider increasing the dose if uncontrolled pain after weaning off the epidural #Prerenal REAL - resolved Cr up to 1.16 on POD2 - treated with fluid boluses and albumin Cr down to 0.67 03/05 #Post-whipple bowel function Pericolace BID and Miralax QD, dulcolax #Post-whipple anastomotic monitoring BASIA amylase POD1 hemolyzed, POD2 645, POD3 395 JPA obtained at noon yesterday was wnl 32 (03/05) #Monitoring for Post-pancreatectomy acquired diabetes diabetic preop, appreciate endocrine recs: increased lantus to 10u 03/04 #Post-whipple bile contamination/infection prevention Intraoperative bile cultures with NGTD, CTM for final culture data #Post-operative pulmonary function Incentive spirometry, ambulation #Marginal ulcer and DVT prophylaxis PPI PO BID, avoid NSAIDs Lovenox QHS, SCDs #Tubes/lines/drains Ostomy appliance at BASIA removal site Bailey catheter--removed 03/05 #Home Medications Celexa 10 mg RESUME amlodipine 10 mg HOLD gabapentin RESUME furosemide HOLD farxiga- awaiting endocrine recs RESUME prn Ativan Dispo: Floor status Code status: Attempt Cardiopulmonary Resuscitation - Inpatient Signed: Tiffanie Pabon MD Surgical Oncology Service Team Pager #[phone] 03/06/24 8:35 AM I saw, examined, and evaluated the patient with Vj Joya MS4. I agree with the note above andhave edited it as necessary. Agree with physical exam and assessment and plan as written above. Tiffanie Pabon MD Associated attestation - Rudi Hernandez MD - 03/06/2024 5:20 PM EDT Attending Addendum I have seen and examined the patient, I have reviewed the vitals, labs and pertinent imaging. I have discussed the documentation above and agree, with the following comments: Charles Nick looks well this evening. He states that he has no nausea although not much of an appetite either (he did have 1 episode of emesis early this AM). He has been on clears. Will advance him back to regular diet in the AM. He did have a BM with a suppository. Rudi Hernandez MD, MS 03/06/2024 5:18 PM [id number] * Diane Sexton MD - 03/05/2024 3:06 PM EDT Acute Pain Medicine Service - Epidural Daily Management VITAL SIGNS: Visit Vitals BP (!) 158/99 (BP Location (NBP): Right arm, Patient Position: Sitting) Pulse 83 Temp 36.5 ??C (97.7 ??F) (Oral) Resp 18 Ht 188 cm (6' 2) Wt (!) 140.5 kg (309 lb 11.9 oz) SpO2 97% BMI 39.77 kg/m?? Body mass index is 39.77 kg/m??. Labs: WBC Date Value Ref Range Status 03/05/2024 8.6 4.0 - 9.5 x10(3)/mcL Final Hemoglobin Date Value Ref Range Status 03/05/2024 11.5 (L) 13.7 - 16.5 g/dL Final Hematocrit Date Value Ref Range Status 03/05/2024 36.5 (L) 40.5 - 48.5 % Final Platelets Date Value Ref Range Status 03/05/2024 165 145 - 357 x10(3)/mcL Final PT Date Value Ref Range Status 12/25/2022 12.3 9.4 - 12.5 sec Final Operative Procedures: Procedure(s): @WHIPPLE PROCEDURE (WRVU 52.84) TRANSFER, INTERMEDIATE, ANY PEDICLE FLAP, ANY LOCATION (WRVU 4.77) APS Opioid Administration Hx All administrations since 03/04/2024 are shown below each listed medication. Other Order Route Rate Dose Action Date HYDROmorphone (pf) (10 mcg/mL), BUpivacaine (pf) 0.1% in sodium chloride 0.9% 250 mL epidural Epidural 250 mL New Bag 03/04/2024 APMS EPIDURAL ROUNDING: Average Numeric Rating Pain Score (0-10): 0 Post-Op Day: 4 Epidural Day: 5 Epidural Infusion (solution): HYDROmorphone 10 mcg/mL and BUpivacaine 0.1% Epidural Infusion Rate: 6 mL per hour PCEA Dose: 3 mL every 20 minutes PRN Out of Bed: Yes Ambulation: Yes Able to Use Incentive Spirometry: Yes Escalation of Care: No Tolerating Regular Diet: No Ileus: No Epidural Catheter Removed (Intact unless noted in Comments): No Mr. Nick continues to do very well in the post-operative period, and has just returned from a lengthy walk. He denies nausea, and has tolerated his liquid/toast diet without issue. He has passed minimal flatus, but states that at baseline, he only has one to two bowel movements weekly. He endorsesexcellent pain control, and states that he has had to use the PCEA with less frequency over the last day or so. He is amenable to a wean in the continuous rate from 6 ml/hr to 3 ml/hr with PCEA at current settings remaining. Will plan to continue epidural analgesia while awaiting further diet advancement and further return of bowel function. Attending Physician:: Diane Sexton MD * Isidra Hickey APRN - 03/05/2024 3:03 PM EDT Brief Glucose Management Team Progress Note 03/05/24 Charles Nick is followed for glucose management by our team while inpatient. The team reached outrequesting DC instructions for DM. Per 03/05/2024 note by my colleague Kristen Meza APRN, plan to send home on insulin glargine in addition to home meds Farxiga and Metformin. He was prior on Levemir, so not new to injections. DC recommendations as followed, in the MDI. Diabetes Discharge Instructions & Recommendations Check your blood sugars when you wake up and before bedtime - keep a log to take to your appointments. Restart Farxiga 10mg QD Restart Metformin 1000mg twice daily with meals. Insulin: You are requiring daily insulin to keep your blood sugars under 180. We are discharging you with insulin glargine once daily - instructions below. Follow-up with Primary care provider in the next 2-4 weeks for further diabetes management. Instructions for insulin glargine (Lantus) Insulin (LONG ACTING) Please inject Lantus 10 units every morning. If your fasting blood sugars are above 150mg/dl two days in a row, please increase your Lantus by 2units. If your fasting blood sugars are below 90mg/dl two days in a row, please decrease your Lantus by 2 units. This dose now becomes your new daily [...] day to have your insulin doses adjusted. Isidra Hickey APRN, [place], -[facility] Inpatient Diabetes Management Team Team pager #[phone] * Gary Mtz PA - 03/05/2024 9:58 AM EDT Surgical Oncology Inpatient Progress Note Patient Name: Charles FLANAGAN; Age: 4 1975; 48 y.o. Room/Bed: 404/404-B Today's Date: 03/05/24 ID: Charles Nick is a 48 y.o. male with PMH of hypertension, chronic kidney disease, biopsy-proven fatty liver disease, type 2 diabetes on Trulicity, and a newly diagnosed duodenal adenocarcinoma who is now 4 Days Post-Op s/p Whipple procedure with Billroth II reconstruction. 24 Hour Events: Diet advanced to clear liquid with toast Started home Lasix 40mg oral BID Endocrine recommended increasing his daily Lantus dose from 8 to 10U POC glucose 166-185 requiring 5U of correction OT recommended home with supervision Added scheduled Tylenol and oxycodone PRN Adequate UOP of 1245 Subjective: Mr. Nick is feeling fine this morning. His pain is well controlled but reports that he has not passed gas since yesterday. He continues to have little appetite but has ambulated around the unit comfortably multiple times with staff. He is tolerating water and gatorade with no nausea/vomiting. Hospital Course: 03/01/24: To OR for open Whipple procedure with Billroth II reconstruction, BASIA drain placed at HJ and PJ anastomosis. 200 mL EBL. Epidural, bailey, NGT in place. 03/02 POD1: BASIA amylase hemolyzed x 3 attempts. Fluid boluses for oliguria, Cr WNL. DM ACID ADJUSTER recommendedstarting Lantus 8u daily. Seen by wound care for foot ulcer present on admission and followed by outpatient podiatry - treating plantar ulcer with medihoney, leaving hallux open to air. 03/03 POD2: BASIA amylase 645. Creatinine up from 0.8 to 1.16 with continued poor UOP, FENA suggestive of prerenal REAL. He was given Crystalloids and Albumin for the resuscitation. Plan to watch UOP closely and monitor response to alternating LR boluses/albumin PRN. Urine output improved with IV lasix 20 mg x 1. NGT removed after successful clamp trial. Advanced to CLD with 500 mL limit. 03/04 POD3: BASIA amylase 395. Home Lasix 40mg PO BID started. Advanced to clear liquids with toast. Lantus increased to 10u per endocrine recs. 03/05 POD4: Remove bailey, void trial. Diet advanced to carbohydrate counting and IVF stopped. Oxycodone PRN added for plan to wean epidural. Bowel regimen begun. BASIA amylase pending. Objective Physical Exam Vitals: Temp: [36.7 ??C (98.1 ??F)-37.1 ??C (98.8 ??F)] Heart Rate: -- Resp: [16-17] BP: (129-147)/(82-93) SpO2: [92 %-96 %] Heart Rate from SpO2: [71 bpm-100 bpm] 03/04 0701 - 03/05 0700 In: 1791.9 [P.O.:560; I.V.:1029] Out: 1500 [Urine:1370; Drains:130] Gen: NAD, resting comfortably, pleasant, conversant HEENT: sclerae nonicteric CV : RRR Pulm: breathing comfortably on RA, no respiratory distress Abd: non-distended, soft, minimally tender, incision with edd well- approximated, clean/dry/intact without erythema or induration. BASIA in place with thin SS output : Bailey to gravity draining clear, yellow urine Ext: SCDs in place. Skin: warm, dry Labs: WBC WNL Hgb stable 11.5 K 3.3 Drains: -BASIA 110cc thin SS output Assessment: Charles Nick is a 48 y.o. male with PMH of hypertension, chronic kidney disease, biopsy-proven fatty liver disease, type 2 diabetes on Trulicity, and a newly diagnosed duodenal adenocarcinoma who is now 4 Days Post-Op s/p Whipple procedure with Billroth II reconstruction. Mr. Nick is progressing steadily following his procedure. His home Lasix regimen was started and he is making adequate urine. We will remove bailey and conduct a voiding trial today. Pain is well controlled and we will begin epidural wean with PRN oxycodone available. His diet has been advanced to carbohydrate counting with no limit, and he has been encourage to increase PO intake as tolerated despite a minimal appetite. IV fluids have been stopped and a bowel regimen added. We will continue to encourage getting OOB and ambulating. PROBLEM BASED PLANS: #Post whipple pain control PCEA per APS--beginning wean 03/05 Scheduled PO Tylenol Lidoderm Oxycodone 5 mg q4h prn #Prerenal REAL - resolved Cr up to 1.16 on POD2 - treated with fluid boluses and albumin Cr down to 0.67 03/05 #Post-whipple bowel function Pericolace BID and Miralax QD #Post-whipple anastomotic monitoring BASIA amylase POD1 hemolyzed, POD2 645, POD3 395 JPA to be obtained at noon today (03/05) #Monitoring for Post-pancreatectomy acquired diabetes diabetic preop, appreciate endocrine recs: increased lantus to 10u 03/04 #Post-whipple bile contamination/infection prevention Intraoperative bile cultures with NGTD, CTM for final culture data #Post-operative pulmonary function Incentive spirometry, ambulation #Marginal ulcer and DVT prophylaxis PPI PO BID, avoid NSAIDs Lovenox QHS, SCDs #Tubes/lines/drains BASIA to bulb suction Bailey catheter--voiding trial 03/05 #Home Medications Celexa 10 mg RESUME amlodipine 10 mg HOLD gabapentin RESUME furosemide HOLD farxiga- awaiting endocrine recs RESUME prn Ativan Dispo: Floor status Code status: Attempt Cardiopulmonary Resuscitation - Inpatient Signed: Vj Joya Surgical Oncology Service Team Pager #[phone] 03/05/24 9:58 AM I saw, examined, and evaluated the patient with Vj Joya MS4. I agree with the note above andhave edited it as necessary. Agree with physical exam and assessment and plan as written above. JULIO Burgess Associated attestation - Rudi Hernandez MD - 03/05/2024 4:48 PM EDT Attending Addendum I have seen and examined the patient, I have reviewed the vitals, labs and pertinent imaging. I have discussed the documentation above and agree, with the following comments: Charles Nick is HD stable, he is now on a regular diet and tolerating that. His drain amylase is 32. Charles reports that he is passing flatus but has not had a BM, we will give him a suppository, Otherwise, he is progressing well his bailey was removed. His epidural is being weaned. Rudi Hernandez MD, MS 03/05/2024 4:46 PM [id number] * Kristen Meza APRN - 03/05/2024 7:27 AM EDT Follow Up Diabetes Consult Patient Interview Blood glucose values and insulin use reviewed. Diet advanced to Carb count no limit. Meal associated insulin added. Objective Temp: [36.7 ??C (98.1 ??F)-37.1 ??C (98.8 ??F)] Heart Rate: -- Resp: [16] BP: (129-147)/(82-93) SpO2: [92 %-96 %] Heart Rate from SpO2: [71 bpm-100 bpm] Current Regimen from previous note Lantus:8--> ADJUSTED to 10 units Lispro for correction q 4 hours based on a correction factor of 40 Diet Clear Liquid Monitoring: Q4 Recent Glucose Levels Recent Labs 03/05/24 0514 03/05/24 0028 03/04/24200103/04/24 1618 03/04/24 1134 03/04/24 0730 03/04/24 0515 03/03/24 2319 03/03/24 2031 03/03/24 1559 03/03/24 1220 03/03/24 0808 POCGLU 173 166 174 174 173 185 171 181 181 174 156 166 ASSESSMENT Charles Nick is a 48 y.o. male with PMH of hypertension, chronic kidney disease, biopsy-proven fatty liver disease, type 2 diabetes on Trulicity, and a newly diagnosed duodenal adenocarcinoma who is now 3 Days Post-Op s/p Whipple procedure with Billroth II reconstruction. Diet advanced to carb count no limit. ALESSANDRO added. Patient would benefit from d/c to home with long acting insulin added back to home regimen. PLAN Lantus:10 units Lispro 1:10 insulin to carbohydrate ratio - ADDED Lispro for correction q 4 hours based on a correction factor of 40 Diet CC Monitoring: Q4 Kristen Meza APRN [facility] [place] Endocrinology Diabetes Management Pager [phone] Weekends please page [phone] * Miki Harrell, PT - 03/04/2024 1:20 PM EDT 03/04/24 1320 Evaluation & Treatment Document Type contact Total Minutes, Physical Therapy 0 Comment, Session Not Performed see note Vital Signs Heart Rate from SpO2 100 bpm SpO2 92 % Met with pt, Ambulated on the unit with FWW. Getting in/OOB with HOB raised, Epidural likely to be d/c'd tomorrow. Will see pt Mon for stairs and to wean off the FWW for d/c home with support of his . * Gary Mtz PA - 03/04/2024 12:09 PM EDT Surgical Oncology Inpatient Progress Note Patient Name: Charles Nick ; Age: 4 1975; 48 y.o. Room/Bed: 404/404-B Today's Date: 03/04/24 ID: Charles Nick is a 48 y.o. male with PMH of hypertension, chronic kidney disease, biopsy-proven fatty liver disease, type 2 diabetes on Trulicity, and a newly diagnosed duodenal adenocarcinoma who is now 3 Days Post-Op s/p Whipple procedure with Billroth II reconstruction. 24 Hour Events: Creatinine normalized to 0.76 following resuscitation yesterday - REAL resolved Urine output improved with IV lasix 20 mg x 1. NGT removed after successful clamp trial - advanced to CLD with 500 mL limit Afebrile. Hypertensive with SBP to 150-160s. 220 cc PO intake yesterday (water). BASIA drain with 120 cc output. Subjective: Charles reports that he is feeling ok this morning. Denies any pain. He only drank water yesterday. Denies feeling thirsty or hungry this morning. Passing flatus. Walked 1 lap around the unit yesterday without issues. Hospital Course: 03/01/24: To OR for open Whipple procedure with Billroth II reconstruction, BASIA drain placed at HJ and PJ anastomosis. 200 mL EBL. Epidural, bailey, NGT in place. 03/02 POD1: BASIA amylase hemolyzed x 3 attempts. Fluid boluses for oliguria, Cr WNL. DM ACID ADJUSTER recommendedstarting Lantus 8u daily. Seen by wound care for foot ulcer present on admission and followed by outpatient podiatry - treating plantar ulcer with meditammyney, leaving hallux open to air. 03/03 POD2: BASIA amylase 645. Creatinine up from 0.8 to 1.16 with continued poor UOP, FENA suggestive of prerenal REAL. He was given Crystalloids and Albumin for the resuscitation. Plan to watch UOP closely and monitor response to alternating LR boluses/albumin PRN. Urine output improved with IV lasix 20 mg x 1. NGT removed after successful clamp trial. Advanced to CLD with 500 mL limit. 03/04 POD3: BASIA amylase 395. Objective Physical Exam Vitals: Temp: [36.9 ??C (98.4 ??F)-37.8 ??C (100 ??F)] Heart Rate: -- Resp: [16-18] BP: (147-169)/(87-101) SpO2: [90 %-93 %] Heart Rate from SpO2: [85 bpm-93 bpm] 03/03 0701 - 03/04 0700 In: 3402.3 [P.O.:220; I.V.:2309] Out: 2094 [Urine:1875; Drains:120] Gen: NAD, resting comfortably, pleasant, conversant HEENT: sclerae nonicteric, CV : RRR Pulm: breathing comfortably on RA, no respiratory distress Abd: non-distended, soft, essentially nontender, midline incision well- approximated with edd, no erythema/drainage. BASIA drain in place with thin, SS output : Bailey to gravity draining CYU Ext: SCDs in place. Skin: warm, dry Labs: WBC 15.5->11.6 Hgb 14.1 -> 11.7 c/w acute blood loss anemia with hemodilution BMP largely unremarkable LFTs normalizing Drains: BASIA-120cc thin SS output Assessment: Charles Nick is a 48 y.o. male with PMH of hypertension, chronic kidney disease, biopsy-proven fatty liver disease, [facility], and a newly diagnosed duodenal adenocarcinoma who is now 3 Days Post-Op s/p Whipple procedure with Billroth II reconstruction. Overall Charles is progressing well. He responded well to fluid resuscitation yesterday - his Creatinine has normalized, reassuring that his REAL has resolved. His urine output responded well to 1 doseof IV Lasix yesterday - will resume home Lasix 40mg BID today. He denies any nausea or vomiting and is starting to pass flatus. Will liberalize his diet to clears(no limit) with toast/crackers. He has excellent pain control - will make prn oxycodone available to aid in epidural wean. Will plan to remove bailey after he receives a couple doses of his home Lasix. OOB/ambulate/PT/OT. PROBLEM BASED PLANS: #Post whipple pain control PCEA per APS Scheduled PO Tylenol Oxycodone 5 mg q4h prn #Prerenal REAL - resolved Cr up to 1.16 on POD2 - treated with fluid boluses and albumin Cr down to 0.76 today #Post-whipple bowel function Pericolace BID #Post-whipple anastomotic monitoring BASIA amylase POD1 hemolyzed, POD2 645, POD3 395 - will recheck tomorrow around noon #Monitoring for Post-pancreatectomy acquired diabetes diabetic preop, appreciate endocrine recs: increasing lantus to 10u today #Post-whipple bile contamination/infection prevention Intraoperative bile cultures with NGTD, CTM for final culture data #Post-operative pulmonary function Incentive spirometry, ambulation #Marginal ulcer and DVT prophylaxis PPI IV BID, avoid NSAIDs Lovenox QHS, SCDs #Tubes/lines/drains BASIA to bulb suction,bailey catheter #Home Medications Celexa 10 mg HOLD amlodipine 10 mg HOLD gabapentin RESUME furosemide HOLD farxiga- awaiting endocrine recs Dispo: Floor status Code status: Attempt Cardiopulmonary Resuscitation - Inpatient Signed: JULIO Burgess Surgical Oncology Service Team Pager #[phone] 03/04/24 12:09 PM Associated attestation - Rudi Hernandez MD - 03/04/2024 1:28 PM EDT Attending Addendum I have seen and examined the patient, I have reviewed the vitals, labs and pertinent imaging. I have discussed the documentation above and agree, with the following comments: Charles Nick is POD # 3, he is feeling well tolerating clears. Still awaiting return of BF, although Charles Nick reports that his baseline function is1 BM q5-6days. Labs are reassuring BASIA amylase is coming down, the value today was not 24 hrs from the last drawn value, we will repeat it tomorrow to have a more accurate sense of his value 72 hrs post-op. Otherwise will leave on clears for now. Pain well controlled with epidural. Rudi Hernandez MD, MS 03/04/2024 1:26 PM [id number] * Sites, Mac De La Paz MD - 03/04/2024 10:34 AM EDT Acute Pain Medicine Service - Epidural Daily Management VITAL SIGNS: Visit Vitals BP (!) 153/101 (BP Location (NBP): Right leg, Patient Position: Lying) Pulse 83 Temp 37 ??C (98.6 ??F) (Oral) Resp 16 Ht 188 cm (6' 2) Wt (!) 140.7 kg (310 lb 3 oz) SpO2 90% BMI 39.83 kg/m?? Body mass index is 39.83 kg/m??. Labs: WBC Date Value Ref Range Status 03/04/2024 11.6 (H) 4.0 - 9.5 x10(3)/mcL Final Hemoglobin Date Value Ref Range Status 03/04/2024 11.7 (L) 13.7 - 16.5 g/dL Final Hematocrit Date Value Ref Range Status 03/04/2024 37.1 (L) 40.5 - 48.5 % Final Platelets Date Value Ref Range Status 03/04/2024 165 145 - 357 x10(3)/mcL Final PT Date Value Ref Range Status 12/25/2022 12.3 9.4 - 12.5 sec Final Operative Procedures: Procedure(s): @WHIPPLE PROCEDURE (WRVU 52.84) TRANSFER, INTERMEDIATE, ANY PEDICLE FLAP, ANY LOCATION (WRVU 4.77) APS Opioid Administration Hx All administrations since 03/03/2024 are shown below each listed medication. Other Order Route Rate Dose Action Date HYDROmorphone (pf) (10 mcg/mL), BUpivacaine (pf) 0.1% in sodium chloride 0.9% 250 mL epidural Epidural 250 mL New Bag 03/03/2024 Epidural 250 mL New Bag 03/03/2024 APMS EPIDURAL ROUNDIN03/04/2024 10:34 AM Average Numeric Rating Pain Score (0-10): 0 Post-Op Day: 3 Epidural Day: 4 Epidural Infusion (solution): HYDROmorphone 10 mcg/mL and BUpivacaine 0.1% Epidural Infusion Rate: 6 mL per hour PCEA Dose: 3 mL every 20 minutes PRN Out of Bed: Yes Ambulation: Yes Able to Use Incentive Spirometry: Yes Escalation of Care: No Tolerating Regular Diet: No Ileus: No Epidural Catheter Removed (Intact unless noted in Comments): No Dax has well controlled pain this morning, but did notice an increase in discomfort upon waking after having not used the PCEA. In the past 24 hours he has used the PCEA 124 times and received 40 doses. His NGT was removed after a successful clamp trial and he denies ROBF. He is OOB to the chair and has ambulated. The epidural dressing is intact and free from signs of infection. We made no changes to the epidural today. Consider adding scheduled acetaminophen and a PRN opioid for transition off the epidural in the upcoming days. I, COLLIN VALLECILLO RN, have performed the documentation for this encounter in the presence of and acting as a scribe for Dr. Mac Holguin. Technical Account Executive Patient seen and examined on daily rounds. I agree with the above assessment and plan. Mac Holguin MD [id number] APIA Nurse: Collin Vallecillo RN Resident:: Juan Michelle MD Attending Physician:: Mac Holguin MD * Kristen Meza, FINE SANDER - 03/04/2024 7:15 AM EDT Follow Up Diabetes Consult Patient ID: Charles Nick is a 48 y.o. male with PMH of hypertension, chronic kidney disease, biopsy-proven fatty liver disease, type 2 diabetes on Trulicity, and a newly diagnosed duodenal adenocarcinoma who is now 3 Days Post-Op s/p Whipple procedure with Billroth II reconstruction. Patient Interview Blood glucose values and insulin use reviewed. TDI yesterday 12 units. Fasting BG 171. Diet advanced to clear liquids with toast and crackers. Glargine increased to 10 units for this evening with elevated fasting blood glucose this am. He reports pain is well controlled, open to insulin at discharge, would like to get CGM, Im terrible at checking my blood sugars. Objective Temp: [36.8 ??C (98.2 ??F)-37.8 ??C (100 ??F)] Heart Rate: -- Resp: [15-18] BP: (111-169)/(78-98) SpO2: [89 %-93 %] Heart Rate from SpO2: [85 bpm-102 bpm] Current Regimen from previous note Lantus:8 units pm Lispro for correction q 4 hours based on a correction factor of 40 sensitive scale Diet Clear liquid Monitoring: Q4 Recent Glucose Levels Recent Labs 03/04/24 0515 03/03/24 2319 03/03/24 2031 03/03/24 1559 03/03/24 1220 03/03/24 0808 03/03/24 0357 03/02/24 2259 03/02/24 1941 03/02/24 1600 03/02/24 1112 03/02/24 0748 POCGLU 171 181 181 174 156 166 159 181 186 179 183 170 ASSESSMENT Patient is a 48 y.o. 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 Diabetes suboptimally controlled and complicated by admitting blood sugars due to hold of SGLT-2 and receiving dexamethasone intraoperatively. That resulted in the consequence of putting patient on insulin drip for a few hours. Currently with variability of blood glucose levels while hospitalized requiring adjustment of insulin regimen and DM medications. TDI yesterday 12 units. Fasting BG 171. Diet remains clear liquids. Glargine increased to 10 units for this evening, reviewed with patient. Patient can be provided CGM for discharge though will need to follow up with PCP to see if this can be covered for him retirement. PLAN Lantus:8--> ADJUSTED to 10 units Lispro for correction q 4 hours based on a correction factor of 40 Diet Clear Liquid Monitoring: Q4 Discharge considerations: Open to adding back insulin at discharge CGM for discharge Kristen Meza APRN [facility] [place] Endocrinology Diabetes Management Pager [phone] Weekends please page [phone] minutes were spent over the course of the day with this patient encounter including time spent in chart review and relevant lab result review, assessment of and counseling with the patient on diabetes and treatment plan, reviewing all glucose and insulin data, and coordination with the consulting service. * Miki Harrell, PT - 03/03/2024 3:30 PM EDT 03/03/24 1530 Evaluation & Treatment Document Type contact Total Minutes, Physical Therapy 0 Comment, Session Not Performed See note Vital Signs Heart Rate from SpO2 89 bpm SpO2 90 % Met with pt and partner in am, pt just back from a walk. NGT out, Returned in pm, pt sleeping soundly after hours OOB. PT to follow tomorrow. * Kristen Meza APRN - 03/03/2024 3:01 PM EDT Images from the original note were not included. Follow Up Diabetes Consult Patient Interview Blood glucose values and insulin use reviewed. A1C updated and 8.9% suggesting an average BG of 209over the last 6 to 8 weeks. DM managed at home with Farxiga 10mg daily, previously on Levemir 40 units and metformin. Diet continues today as clear liquid, he remains on a sensitive correction with glargine 8 units added last night. Charles is sound asleep. RNs have no questions or concerns as we continue to monitor his blood sugars. Objective Temp: [36.8 ??C (98.2 ??F)-37.1 ??C (98.8 ??F)] Heart Rate: -- Resp: [15-16] BP: (111-144)/(69-90) SpO2: [89 %-95 %] Heart Rate from SpO2: [86 bpm-102 bpm] Current Regimen from previous note 1. PLEASE start Lantus 8 units qhs tonight (order written) 2. CONTINUE Lispro custom sliding scale for BG>140 sensitive coverage q 4 hours 3. YOU MAY CHOOSE NONE ORDERED Meal-associated Lispro 2-8 units tid ac (or 1unit: 10 gm carb ratio for each meal and snack if you let him eat) Use that when calculating to start if beginning trickle in tube feeds Really looking forward to seeing how his pancreas functions post op for food and insulin and what his Ha1C results to Recent Glucose Levels Recent Labs 03/03/24 1220 03/03/24 0808 03/03/24 0357 03/02/24 2259 03/02/24 1941 03/02/24 1600 03/02/24 1112 03/02/24 0748 03/02/24 0426 03/02/24 0012 03/01/24 1955 03/01/24 1844 POCGLU 156 166 159 181 186 179 183 170 172 190 233* 156 ASSESSMENT Patient is a 48 y.o. 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 Diabetes suboptimally controlled and complicated by admitting blood sugars due to hold of SGLT-2 and receiving dexamethasone intraoperatively. That resulted in the consequence of putting patient on insulin drip for a few hours. Currently with variability of blood glucose levels while hospitalized requiring adjustment of insulin regimen and DM medications. A1C updated and 8.9% suggesting an average BG of 209 over the last 6 to 8 weeks. DM managed at homewith Farxiga 10mg daily, previously on Levemir 40 units and metformin. Diet continues today as clear liquid, he remains on a sensitive correction with glargine 8 units added last night. Blood sugars remain stable. We will continue to monitor as diet is advanced. PLAN - no changes Lantus:8 units pm Lispro for correction q 4 hours based on a correction factor of 40 sensitive scale Diet Clear liquid Monitoring: Q4 Kristen Meza APRN [facility] [place] Endocrinology Diabetes Management Pager [phone] Weekends please page [phone] minutes were spent over the course of the day with this patient encounter including time spent in chart review and relevant lab result review, assessment of and counseling with the patient on diabetes and treatment plan, reviewing all glucose and insulin data, and coordination with the consulting service. * Tiffanie Pabon MD - 03/03/2024 2:06 PM EDT Surgical Oncology Inpatient Progress Note Patient Name: Charles FLANAGAN; Age: 4 1975; 48 y.o. Room/Bed: 404/404-B Today's Date: 03/03/24 ID: Charles Nick is a 48 y.o. male with PMH of hypertension, chronic kidney disease, biopsy-proven fatty liver disease, type 2 diabetes on Trulicity, and a newly diagnosed duodenal adenocarcinoma who is now 2 Days Post-Op s/p Whipple procedure with Billroth II reconstruction. 24 Hour Events: NGT retracted to 45 cm, KUB demonstrated NGT in distal Esophagus, advanced to Seen by wound care for foot ulcer that is being followed by outpatient podiatry and recommendationsprovided DM management recommended 8U Lantus QHS, SSI Q4H, and ALESSANDRO 2-8U TID or 1U:10g carbs with every meal/snack PT recommended home with home health Had a low UOP of 0.2 cc/kg/hr and rising CR 1.16 (0.8) Urine lytes suggested prerenal REAL Received LR 1L bolus x3, 500ml bolus x2, and 5% Albumin 250 ml X2 POC glucose 159-186, requiring 7U for correction NAEON Subjective: Patient feels well this morning with no acute complaints. He is using his PCEA for pain control andhas had no nausea/vomiting. Hospital Course: 03/01/24: To OR for open Whipple procedure with Billroth II reconstruction, BASIA drain placed at HJ and PJ anastomosis. 200 mL EBL. Epidural, bailey, NGT in place. 03/02 POD1: BASIA amylase hemolyzed x 3 attempts. Fluid boluses for oliguria, Cr WNL. 03/03 POD2: Creatinine up from 0.8 to 1.16 with continued poor UOP. He was given Crystalloids and Albumin for the resuscitation. Plan to watch UOP closely and monitor response to alternating LR boluses/albumin PRN. NGT out pending clamp trial. Objective Physical Exam Vitals: Temp: [36.8 ??C (98.2 ??F)-37.1 ??C (98.8 ??F)] Heart Rate: -- Resp: [15-16] BP: (111-144)/(64-90) SpO2: [89 %-95 %] Heart Rate from SpO2: [84 bpm-102 bpm] 03/02 0701 - 03/03 0700 In: 5909 [I.V.:5584] Out: 1740 [Urine:575; Drains:115] Gen: NAD, resting comfortably, pleasant, conversant HEENT: sclerae nonicteric, NGT with bilious output clamped for trial CV : RRR Pulm: breathing comfortably on RA, no respiratory distress Abd: non-distended, soft, minimally tender, with well-appearing midline incision with dressing and without erythema or induration. BASIA drain in place with thin, SS output : Bailey to gravity draining dark, concentrated urine Ext: SCDs in place. Skin: warm, dry Labs: Recent Labs 03/03/24 0104 03/02/24 0430 03/01/24 1902 WBC 15.5* 12.8* 15.3* HGB 11.7* 13.3* 14.1 HCT 37.2* 41.9 43.4 PLATELET 169 205 218 NEUTROABS 13.27* 10.79* 14.04* Recent Labs 03/03/24 1313 03/03/24 0104 03/02/24 0430 NA 137 137 135 K 3.6 3.9 5.0 CL 103 101 103 CO2 24 BUN 11 16 11 CREATININE 0.79* 1.16 0.80 Recent Labs 03/03/24 1313 03/03/24 0104 03/02/24 0430 CALCIUM 8.2* 8.1* 7.9* MAGNESIUM -- 0.78 -- PHOS -- 2.2* -- Recent Labs 03/03/24 1313 03/03/24 0104 03/02/24 0430 GLUCOSE 175 192 199 Recent Labs 03/03/24 1140 BFAMYLASE 645 Recent Labs 03/03/24 0104 03/02/24 0527 03/02/24 0430 03/01/24 1902 AST 64* 89* Not Perf 182* ALT 111* -- 128* 148* ALKPHOS 83 -- 97 106 BILITOT 0.6 -- 0.9 2.2* No results for input(s): INR, PT, PTT in the last 168 hours. No results for input(s): CK in the last 168 hours. Drains: NGT-800cc bilious output last 24 hours BASIA-115cc thin SS output Assessment: Charles Nick is a 48 y.o. male with PMH of hypertension, chronic kidney disease, biopsy-proven fatty liver disease, type 2 diabetes on Trulicity, and a newly diagnosed duodenal adenocarcinoma who is now 2 Days Post-Op s/p Whipple procedure with Billroth II reconstruction. Mr. Charles Nick is recovering well from his procedure, however he developed prerenal REAL with rising CR and low UOP. He was resuscitated with crystalloids and Albumin. We will continue following for the response and resuscitation with LR boluses and Albumin alternatively. We have started the NGTclamp trial and plan to remove it if he passes the trial. PROBLEM BASED PLANS: #Post whipple pain control PCEA per APS Scheduled IV Tylenol Hold on PO narcotics until return of bowel function #Poor UOP UOP to be watched closely Alternating LR boluses/albumin PRN with monitoring for appropriate response #Post-whipple bowel function AROBF NGT to be removed pending clamp trial #Post-whipple anastomotic monitoring BASIA amylase levels to be drawn day 1-5 Hemolyzed x 3 attempts 03/02 - will try again 03/03 #Monitoring for Post-pancreatectomy acquired diabetes diabetic preop, endocrine recs: 8U Lantus QHS, SSI Q4H, and ALESSANDRO 2-8U TID or 1U:10g carbs with everymeal/snack #Post-whipple bile contamination/infection prevention Intraoperative bile cultures with NGTD, CTM for final culture data #Post-operative pulmonary function Incentive spirometry, ambulation #Marginal ulcer and DVT prophylaxis PPI IV BID, avoid NSAIDs Lovenox QHS, SCDs #Tubes/lines/drains NGT out pending clamp trial, BASIA to bulb suction,bailey catheter #Home Medications Celexa 10 mg HOLD amlodipine 10 mg HOLD gabapentin HOLD furosemide HOLD farxiga- awaiting endocrine recs Dispo: Floor status Code status: Attempt Cardiopulmonary Resuscitation - Inpatient Signed: Tiffanie Pabon MD Surgical Oncology Service Team Pager #[phone] 03/03/24 2:06 PM * Ezio, Mac De La Paz MD - 03/03/2024 8:33 AM EDT Acute Pain Medicine Service - Epidural Daily Management VITAL SIGNS: Visit Vitals BP 111/78 (BP Location (NBP): Right arm, Patient Position: Lying) Pulse 83 Temp 37.1 ??C (98.8 ??F) (Oral) Resp 15 Ht 188 cm (6' 2) Wt 135.2 kg (298 lb) SpO2 91% BMI 38.26 kg/m?? Body mass index is 38.26 kg/m??. Labs: WBC Date Value Ref Range Status 03/03/2024 15.5 (H) 4.0 - 9.5 x10(3)/mcL Final Hemoglobin Date Value Ref Range Status 03/03/2024 11.7 (L) 13.7 - 16.5 g/dL Final Hematocrit Date Value Ref Range Status 03/03/2024 37.2 (L) 40.5 - 48.5 % Final Platelets Date Value Ref Range Status 03/03/2024 169 145 - 357 x10(3)/mcL Final PT Date Value Ref Range Status 12/25/2022 12.3 9.4 - 12.5 sec Final Operative Procedures: Procedure(s): @TRAER PROCEDURE (WRVU 52.84) TRANSFER, INTERMEDIATE, ANY PEDICLE FLAP, ANY LOCATION (WRVU 4.77) APS Opioid Administration Hx All administrations since 03/02/2024 are shown below each listed medication. Other Order Route Rate Dose Action Date HYDROmorphone (pf) (10 mcg/mL), BUpivacaine (pf) 0.1% in sodium chloride 0.9% 250 mL epidural Epidural 250 mL New Bag 03/03/2024 Epidural 250 mL New Bag 03/02/2024 APMS EPIDURAL ROUNDIN03/03/2024 8:33 AM Average Numeric Rating Pain Score (0-10): 0 Post-Op Day: 2 Epidural Day: 3 Epidural Infusion (solution): HYDROmorphone 10 mcg/mL and BUpivacaine 0.1% Epidural Infusion Rate: 6 mL per hour PCEA Dose: 3 mL every 20 minutes PRN Out of Bed: Yes Ambulation: No Able to Use Incentive Spirometry: Yes Escalation of Care: No Tolerating Regular Diet: No Ileus: No Epidural Catheter Removed (Intact unless noted in Comments): No Dax has well controlled pain this morning. He used the PCEA 119 times and received 52 doses in the past 24 hours. He is currently undergoing an NGT clamp trial and denies ROBF. He stood at the sideof the bed yesterday, but has not ambulated. The epidural dressing is intact and free from signs ofinfection. We made no changes to the epidural today and will plan to wean once the NGT has been removed and hecan tolerate oral analgesics. ICOLLIN RN, have performed the documentation for this encounter in the presence of and acting as a scribe for Dr. Mac Holguin. Technical Account Executive Patient seen on daily rounds. I agree with the above assessment and plan. Fantastic analgesia with epidural. Mac Holguin MD [id number] APMS Nurse: Collin Vallecillo RN Resident:: Juan Michelle MD Attending Physician:: Mac Holguin MD * Miki Harrell, PT - 03/02/2024 3:58 PM EDT Physical Therapy evaluation 1 Patient profile: Charles Nick is a 48 y.o. male h/x of of hypertension, chronic kidney disease, biopsy-proven fatty liver disease, type 2 diabetes on Trulicity, and a newly diagnosed duodenal adenocarcinoma who is now 1 Day Post- Op s/p Whipple procedure with Billroth II reconstruction. BASIA drain placement, epidural, bailey and NGT. Tx to 4 from PACU Patient with the following active problems: Past Medical History: Diagnosis Date CKD (chronic kidney disease) stage 3, GFR 30-59 ml/min 01/31/2011 Obesity 01/31/2011 Past Surgical History: Procedure Laterality Date IR BIOPSY LIVER PERCUTANEOUS - NON-FOCAL PARENCHYMA 01/07/2023 IR Biopsy Liver Percutaneous 01/07/2023 Juan Wright MD [facility] INTERVENTIONL RAD Social History:Home set-up: Lives with his partner, Jenelle, in a 2 story house Stairs: 15 TANJA with rails, Baseline Mobility: Ambulates without an AD. Works [employer] Equipment at home: CPAP Fall history: denies falls Precautions/Special Considerations: Full Code, fall risk NGT to suction Lines: Rui, PIV, epidural, bailey, NGT to suction, Activity Orders (From admission to next 72h) Start Ordered 03/01/24 2200 Ambulate in Hallway - Therapeutic Walk in Hallway 4 TIMES DAILY Comments: Therapeutic walk in hallway four times per day. 03/01/24192303/01/241924 Ambulate patient Now Then Q4H NOW THEN EVERY 4 HOURS 03/01/241923 Unscheduled Up in chair POD#0 PRN Comments: Starting POD #0 03/01/241923 Diet: Sips & Chips Mobility and Positioning Recommendations: Pt. to utilize front-wheeled walker and assist of 1 for transfers and ambulation with nursing. Please encourage up to chair for meal times as able. Pt encouraged to ambulate frequently with staff, getting into the bathroom for toileting and walking out in the gustafson >/= 3 times daily as able. Subjective: ???Not having much pain, using this button?? Objective: Pt seen for evaluation today. Pain: well controlled with SPECIAL EDUCATION TUTOR/epidural Vital Signs / Cardiopulmonary: SpO2: 95% on RA BP: 111/69 in sitting HR: 74 Mental Status: groggy, oriented to person, place, and time Vision: reading glasses Skin: abdominal incision, BASIA drain, PIV, ulcer on R great toe base of 3rd metatarsal Musculoskeletal: ROM: decreased d/t abdominal incision Strength: WFL Sensation: baseline neuropathies from mid huff to feet Bed Mobility: Supine to Sit: Min assist x1, HOB elevated to L side of bed, line mgmt Sit to Supine: Min assist x1, asst to raise LEs Transfers: Sit to Stand: Min assist from EOB front-wheeled walker, bed height raised Stand to Sit: CGA from front-wheeled walker to EOB, fair eccentric control Bed to Chair: deferred, pt too sleepy, Gait: marched in place at EOB with FWW, sidestepped to the L to get higher on the bed Stairs: NA Balance: Sitting Static: Fair+ Sitting Dynamic: Fair Standing Static: Fair with a front-wheeled walker Standing Dynamic/Gait: Fair- with a front-wheeled walker Education/Exercise Instruction: precautions, ankle pumps, positioning, transfers, goals, safety Pt left upright in bed, with bed alarm on, call ibarra in place, all needs met. RN updated post PT session. Assessment: Charles Nick was seen today for physical therapy evaluation. Upon evaluation, patientpresents with pain, sensory deficits, impaired skin integrity, decreased strength/ROM, gait impairments, and reduced activity tolerance,s/p Whipple procedure. Pt tolerated EOB sitting with stable vitals, marching in place. Pt with good pain management but sleepy. These deficits contribute to functional limitations. Pt will benefit from ongoing therapeutic interventions while in the acute care setting to reach pt and therapy goals. Anticipate daily progress with mobility, initially will ambulatewith FWW Pt has lots of stairs to his upstairs bedroom and support at home. Plan: 2-3 times/wk Patient/family understand and agree with plan as stated above. Discharge Recommendations: Based on current functional status- home with home health Consult Recommendations: No other consults recommended at this time. Equipment needs for home at d/c: to be determined Goals: To be achieved by 03/14: Pt will tolerate progression towards upright with stable vital signs. Pt. will demonstrate understanding of appropriate exercises and perform them independently or with family. Pt. to perform bed mobility with modified independence with HOB flat. Pt. to perform transfers independently . Pt. will ambulate 150 feet with modified independence using a LRD . Pt. to ambulate up/down 15 step/stairs using one rail with supervision. Family or caregiver to demonstrate understanding of therapeutic interventions to support the care of the patient. Patient status, treatment, and mobility recommendations have been discussed with nursing. Time IN / OUT: 3:38-3:58 Total Time: 20 minutes, low complexity evaluation Thank you for this consult. MIKI HARRELL, PT Pager: [phone] Physical Therapy Inpatient Rehabilitation Department 2017 PT Evaluation Code Rationale: Diagnosis & Pertinent Co-Morbidities, personal factors, and present illness affecting Plan of Care: (see above); Additional personal factors or co- morbidities that impact plan: Total # of Factors: 0 1-2 3+ x Examination of body system impairments, functional limitations and behaviors, and/or participation restrictions. Addressing 1-2 elements Addressing 3 + elements Addressing 4 + elements x Clinical presentation: See assessment above. Stable/Uncomplicated Evolving/Fluctuating Symptoms Unstable/Unpredictable x Clinical decision making of low complexity based on pt's functional performance as outlined in thisevaluation. * Gary Mtz PA - 03/02/2024 3:24 PM EDT Surgical Oncology Inpatient Progress Note Patient Name: Charles FLANAGAN; Age: 4 1975; 48 y.o. Room/Bed: [address] [place] [address] Today's Date: 03/02/24 ID: Charles Nick is a 48 y.o. male with PMH of hypertension, chronic kidney disease, biopsy-proven fatty liver disease, type 2 diabetes on Trulicity, and a newly diagnosed duodenal adenocarcinoma who is now 1 Day Post-Op s/p Whipple procedure with Billroth II reconstruction. 24 Hour Events: - To OR for open Whipple procedure with Billroth II reconstruction, BASIA drain placed at HJ and PJ anastomosis. 200 mL EBL. Epidural, bailey, NGT in place. - POC WNL - AVSS, oliguria overnight - bolused 500 cc + 1L this morning, BASIA drain with 190 cc output, NG 700 cc - POC glucose 125-233 (rec'd 8mg dexamethasone) - rec'd 2u lispro yesterday Subjective: Feeling well this morning. Pain well-controlled with PCEA. Denies nausea. Hospital Course: 03/01/24: To OR for open Whipple procedure with Billroth II reconstruction, BASIA drain placed at HJ and PJ anastomosis. 200 mL EBL. Epidural, bailey, NGT in place. 03/02 POD1: BASIA amylase hemolyzed x 3 attempts. Fluid boluses for oliguria, Cr WNL. Objective Physical Exam Vitals: AVSS Gen: NAD, resting comfortably, pleasant, conversant HEENT: sclerae nonicteric. NGT with bilious output flushed and sumping well on rounds CV : RRR Pulm: breathing comfortably on RA, no respiratory distress Abd: non-distended, soft, minimally tender to palpation, midline incision with dressing in place mainly CDI with minimal strikethrough : Bailey to gravity draining kandace urine Ext: SCDs in place. Skin: warm, dry Drains: BASIA drain with 190 cc output thin SS NG 700 cc thin bilious Labs: WBC 15.3->12.8 Hgb 14.1->13.3 acute blood loss anemia with hemodilution BMP unremarkable LFTs downtrending, T bili normalized 0.9 Intra-op bile fluid cultures: NGTD Assessment: Charles Nick is a 48 y.o. male with PMH of hypertension, chronic kidney disease, biopsy-proven fatty liver disease, type 2 diabetes on Trulicity, and a newly diagnosed duodenal adenocarcinoma who is now 1 Day Post-Op s/p Whipple procedure with Billroth II reconstruction. Overall Charles is doing well this morning. He has good pain control with the epidural - appreciate APS assistance with management. He has had some oliguria overnight despite fluid boluses, fortunately his Creatinine remains WNL. Will closely monitor UOP and continue to bolus as needed. Maintain NGT to LCWS for today. OOB/ambulate/PT/OT. Appreciate DM ACID ADJUSTER recommendations for his post-Whipple hyperglycemia in the setting of his T2DM. PROBLEM BASED PLANS: #Post whipple pain control PCEA per APS Scheduled IV Tylenol Hold on PO narcotics until return of bowel function #Post-whipple bowel function AROBF NGT to LCWS #Post-whipple anastomotic monitoring BASIA amylase levels to be drawn day 1-5 Hemolyzed x 3 attempts today - will try again tomorrow #Monitoring for Post-pancreatectomy acquired diabetes diabetic preop, awaiting endocrine recs #Post-whipple bile contamination/infection prevention Intraoperative bile cultures with NGTD, CTM for final culture data #Post-operative pulmonary function Incentive spirometry, ambulation #Marginal ulcer and DVT prophylaxis PPI IV BID, avoid NSAIDs Lovenox QHS, SCDs #Tubes/lines/drains NGT to LCWS, BASIA to bulb suction,bailey catheter #Home Medications Celexa 10 mg HOLD amlodipine 10 mg HOLD gabapentin HOLD furosemide HOLD farxiga- awaiting endocrine recs Dispo: Floor Code status: Attempt Cardiopulmonary Resuscitation - Inpatient Signed: JULIO Burgess Surgical Oncology Service Team Pager #[phone] 03/02/24 3:24 PM * Violeta Manley RN - 03/02/2024 3:15 PM EDT Pt arrived to [facility] around 1445. Connected to carmen VSS on RA. NG to LCWS. LR 1L bolus initiated. Epidural remains in place. Abd dressing w/ spotting, not outside marked areas. BASIA to bulb suction. See flowsheets for full assessment. * Miki Harrell, PT - 03/02/2024 2:49 PM EDT 03/02/24 1442 Evaluation & Treatment Document Type contact Total Minutes, Physical Therapy 0 Comment, Session Not Performed Chart reviewed, attempted to work with pt in PACU, just transferred.RN admitting pt to the floor, asked to return. PT to follow Vital Signs Heart Rate from SpO2 87 bpm SpO2 93 % * Jacob Nickerson RN - 03/02/2024 2:05 PM EDT Report called to receiving L4WD GRETCHEN Mcdaniel, all questions and concerns addressed. * Mac Holguin MD - 03/02/2024 7:37 AM EDT Acute Pain Medicine Service - Epidural Daily Management VITAL SIGNS: Visit Vitals BP 133/86 (BP Location (NBP): Right arm) Pulse 83 Temp 36.6 ??C (97.9 ??F) (Temporal) Resp 14 Ht 188 cm (6' 2) Wt 135.2 kg (298 lb) SpO2 95% BMI 38.26 kg/m?? Body mass index is 38.26 kg/m??. Labs: WBC Date Value Ref Range Status 03/02/2024 12.8 (H) 4.0 - 9.5 x10(3)/mcL Final Hemoglobin Date Value Ref Range Status 03/02/2024 13.3 (L) 13.7 - 16.5 g/dL Final Hematocrit Date Value Ref Range Status 03/02/2024 41.9 40.5 - 48.5 % Final Platelets Date Value Ref Range Status 03/02/2024 205 145 - 357 x10(3)/mcL Final PT Date Value Ref Range Status 12/25/2022 12.3 9.4 - 12.5 sec Final Operative Procedures: Procedure(s): @WHIPPLE PROCEDURE (WRVU 52.84) APS Opioid Administration Hx All administrations since 03/01/2024 are shown below each listed medication. Other Order Route Rate Dose Action Date HYDROmorphone (pf) (10 mcg/mL), BUpivacaine (pf) 0.1% in sodium chloride 0.9% 250 mL epidural Epidural 250 mL New Bag 03/02/2024 HYDROmorphone (Dilaudid) (2 mg/mL) multi-dose injection solution 0.6 mg Intravenous 0.6 mg Given 03/01/2024 HYDROmorphone (Dilaudid) (2 mg/mL) multi-dose injection solution 0.4 mg Intravenous 0.4 mg Given 03/01/2024 HYDROmorphone (pf) (10 mcg/mL), BUpivacaine (pf) 0.1% in sodium chloride 0.9% 250 mL epidural Epidural 6 mL/hr 6 mL/hr New Bag 03/01/2024 fentaNYL (pf) (50 mcg/mL) multi-dose injection Intravenous 100 mcg Given 03/01/2024 HYDROmorphone (Dilaudid) (2 mg/mL) injection solution 0.2 mg Epidural 0.2 mg Given 03/01/2024 fentaNYL (PF) (50 mcg/mL) injection 12.5-50 mcg Intravenous 50 mcg Given 03/01/2024 Intravenous 50 mcg Given 03/01/2024 APMS EPIDURAL ROUNDIN03/02/2024 7:37 AM Average Numeric Rating Pain Score (0-10): 3 Post-Op Day: 1 Epidural Day: 2 Epidural Infusion (solution): HYDROmorphone 10 mcg/mL and BUpivacaine 0.1% Epidural Infusion Rate: 6 mL per hour PCEA Dose: 3 mL every 20 minutes PRN PIEB Dose: 0 mL every 0 minutes Out of Bed: No Ambulation: No Able to Use Incentive Spirometry: Yes Escalation of Care: No Tolerating Regular Diet: No Ileus: No Epidural Catheter Removed (Intact unless noted in Comments): No Charles is doing very well this morning. He boarded in PACU overnight and offers no complaints. Charles reports well-controlled pain and denies any numbness, tingling, itching, or nausea. He has an NG tube in place and denies ROBF. Charles has not been out of bed postoperatively, but is able to bend his ankles and knees to command. The epidural insertion site is free from signs of infection and the dressing remain occlusive. Plan: We made no changes to the epidural regimen today and will plan to continue therapy until his diet is advanced and he has signs of ROBF. Charles was encouraged to use his PCEA to facilitate activity when the time comes. IROBERT RN, have performed the documentation for this encounter in the presence of andacting as a scribe for Dr. Mac Holguin. Anesthesia Staff Patient seen and examined on daily rounds. I agree with the above assessment and plan Mac Holguin MD [id number] [facility] Nurse: Robert Pena RN Resident:: Juan Michelle MD Attending Physician:: Mac Holguin MD * Kamryn Kim MD - 03/01/2024 9:30 PM EDT Surgery Post-Op Check Operation/Procedure: 03/01/2024 Surgeons and Role: * Rudi Hernandez MD - Primary * Latonia Red MD: Procedure(s): @WHIPPLE PROCEDURE (WRVU 52.84) Charles Nick is a 48 y.o. male status post open Whipple procedure. Subjective/Events: Patient resting quite comfortably with at bedside. He currently denies nausea, vomiting, chestpain, shortness of breath, numbness/weakness. Pain adequately controlled. Offers no complaints. Objective: Temp: [36 ??C (96.8 ??F)-36.5 ??C (97.7 ??F)] Heart Rate: [76-86] Resp: [15-21] BP: (126-150)/(76-95) SpO2: [93 %-100 %] Heart Rate from SpO2: [75 bpm-86 bpm] O2 Device: None (Room air) I/O this shift: In: 190 [I.V.:160] Out: 190 [Urine:190] Physical Exam GEN: resting comfortably in bed, pleasant, conversant, NAD HEENT: normocephalic, atraumatic, NGT to LCWS w/ bilious output CHEST: comfortable work of breathing on RA CV: regular rate, well perfused ABD: soft, appropriately tender, non distended, midline dressing w/ minimal strike-through - otherwise CDI, BASIA drain w/ SS output to bulb suction & dressing CDI EXTR: moving all extremities spontaneously, no edema NEURO: awake and alert, grossly intact, nonfocal, follows commands Assessment and Plan: Charles Nick is a 48 y.o. male status post open Whipple procedure. Currently in stable condition and recovering as expected. Hemodynamically normal on RA UOP >0.5 cc/kg/hr, CYU in bailey - continue to monitor Drains: BASIA drain w/ SS output, continue bulb suction NGT to LCWS, flushed & sumping Fluids: LR @ 100mL/hr Labs reviewed, Hgb 14 stable & creat/lytes WNL Pain adequately controlled Diet: Sips and Chips (Give Meds) Kamryn Kim MD 03/01/2024 Surgical Oncology, Team Pager [phone] * Roxie Rascon RN - 03/01/2024 9:10 PM EDT 1899-Report received from GRETCHEN Montiel. 2056-Significant other at the bedside. 2129-MD Kim at the bedside for post op rounds. 2299-IS teaching done, pt able to achieve 1500 first try of repeat demonstration. * Tiana Alva RN - 03/01/2024 6:45 PM EDT 7: Pt arrived to PACU from OR. Monitor applied, alarms set and audible. Airway maintained. 1899: Handoff to GRETCHEN Faustin. documented in this encounter H&P Notes * Latonia Red MD - 03/01/2024 7:10 AM EDT Patient Name: Charles Nick Patient Age: 48 y.o. Birthdate: 1975 Admit date: 03/01/2024 Attending Physician: Rudi Hernandez MD HPI obtained from 02/02 clinic note: Charles Nick is a 48-year-old gentleman with a history of hypertension, chronic kidney disease, biopsy-proven fatty liver disease, [facility], with a newly diagnosed duodenal adenocarcinoma. He has undergone staging with an MRI and a PET scan which is notable for 1 FDG G avid lesion in the second portion of the duodenum. Per the endoscopy report this lesion is sessile and is in the posterior wall of the duodenum. The PET scan is also notable for some lymphadenopathy in the neck this is unlikely related to his duodenal primary and may represent a inflammatory response from recent upper respiratory infection. I discussed with Edu that small bowel adenocarcinoma was also rare and that we extrapolate from the colorectal literature in terms of how to best manage them. In the setting of the duodenal adenocarcinoma in the second portion of the duodenum resection would entail a Whipple procedure. We discussed what the surgery would entail as well as potential complications from the surgery including bleeding, infection, need for p.o. or IV antibiotics, need for an IRdrain, pancreatic leak, need for pancreas rest, worsening of his diabetes, and exocrine insufficiency requiring pancreatic enzymes. We discussed that depending on the final pathology and node positivity he may require adjuvant chemotherapy. I do not see an MMR status on his pathology, pathology hasbeen reviewed here. I will ask our pathology department to obtain the IHC for this as it may impacthis adjuvant treatments. In addition I will plan on getting a CT abdomen pelvis to assist with surgical planning. Although the patient has chronic kidney disease his creatinine is in the normal rangeand he has received contrast in the past therefore I do not think is a contraindication for him to get IV contrast for surgical planning. A surgical consent was signed in clinic and he is scheduled for a Whipple on 03/01/2024. He denies any changes in health (medications, allergies, emergency room visits, hospitalizations, procedures); he also denies fevers, chills, nausea, vomiting. Objective: BP (!) 151/96 (BP Location (NBP): Left arm) Pulse 65 Temp 36.7 ??C (98.1 ??F) (Temporal) Ht 188 cm (6' 2) Wt 135.2 kg (298 lb) SpO2 98% BMI 38.26 kg/m?? GA: NAD CV: RRR Pulm: Breathing comfortably on RA Abd: Non-tender, non-distended Assessment and Plan: 48 y.o. male presents for [place]. Latonia Red MD 03/01/24 documented in this encounter Miscellaneous Notes * Care Management Discharge - Nimo Wayne RN - 03/08/2024 2:04 PM EDT CARE MANAGEMENT FINAL DISCHARGE NOTE Chart reviewed, care reviewed with primary team and at interdisciplinary rounds. Patient is medically ready for discharge to home without services. Needs for Transition of Care: Plan for discharge is: Home w/o Services Outpatient Agency/Support Group Needs: None Agency Referrals & Follow-up Care: none; patient declined because S.O. is a nurse. Transportation: family or friend will provide Functional status prior to admission: Independent Home Environment: Others in the home: significant other, child(denia), minor, pet(s) (Patient lives with his s.o., 4 combined minor children, 2 dogs, and 1 cat.). Current Living Arrangements: home/apartment/condo. Accessibility Concerns:Patient lives in a two story home with 15 stairs to his bedroom and 2 TANJA.. Current Functional Ability: Independent DME used at home: none DME Needed at Discharge: none Patient is insured through: Primary Insurance: [employer] Payor: [employer] / Plan: [facility] PPO / Product Type: *No Product type* / Secondary Insurance: N/A Prescription Coverage: Yes This plan was formulated with input from patient, and team. All are in agreement with plan. JACKIE Mcguire, clothes shaker of Care Management Pager [phone] * Plan of Care - Nahomi Toussaint RN - 03/08/2024 7:45 AM EDT OUTCOME EVALUATION NOTE: OUTCOME SUMMARY: Charles was A&Ox4 on RA throughout shift. BP's elevated 160s-180s entire night. PRN Labetalol given X2, PRN Hydralazine given x2. PRN Ativan given for anxiety. Voiding adequately in bedside commode. No BM today. In morning, pt ambulated off unit. Came back to unit and reported having vomited x3,green fluid. PRN Compazine given. +2 edema noted in BLE and BUE. Pain well-controlled with scheduled Tylenol. R plantar dressing remains CDI, R toe wound JOSE. Midline incision with dressing on middleaspect with scant drainage. Minimal PO intake during shift. Pt resting between care. PLAN MOVING FORWARD: Vitals q4H I&O q4h Encourage PO intake Encourage ambulation Pain management INDIVIDUALIZED FALL PREVENTION INTERVENTIONS: Patient-specific fall risk factors per assessment: [current deficits]: Recent surgical procedure, tethering lines and drains, generalized weakness, unfamiliar environment. Assistance [level of assistance required for transfers and ambulation]: Independent Supervision [direct monitoring required during toileting and ADLs]: Independent Surveillance [continuous indirect monitoring]: Environmental monitoring, purposeful rounding, ringscall ibarra appropriately Patient-specific fall prevention interventions for sensory deficits provided, if applicable: Non-skid slippers on, lighting adjusted, belongings within reach. CPG GOAL OUTCOME EVALUATION: Problem: Bleeding (Surgery Nonspecified) Goal: Absence of Bleeding Outcome: Ongoing (Interventions Implemented as Appropriate) Problem: Bowel Motility Impaired (Surgery Nonspecified) Goal: Effective Bowel Elimination Outcome: Ongoing (Interventions Implemented as Appropriate) Problem: Infection (Surgery Nonspecified) Goal: Absence of Infection Signs and Symptoms Outcome: Ongoing (Interventions Implemented as Appropriate) Problem: Ongoing Anesthesia Effects (Surgery Nonspecified) Goal: Anesthesia/Sedation Recovery Outcome: Ongoing (Interventions Implemented as Appropriate) Problem: Pain (Surgery Nonspecified) Goal: Acceptable Pain Control Outcome: Ongoing (Interventions Implemented as Appropriate) Problem: Adult Inpatient Plan of Care Goal: Plan of Care Review Outcome: Ongoing (Interventions Implemented as Appropriate) Goal: Patient-Specific Goal (Individualized) Outcome: Ongoing (Interventions Implemented as Appropriate) Goal: Absence of Hospital-Acquired Illness or Injury Outcome: Ongoing (Interventions Implemented as Appropriate) Goal: Optimal Comfort and Wellbeing Outcome: Ongoing (Interventions Implemented as Appropriate) Goal: Readiness for Transition of Care Outcome: Ongoing (Interventions Implemented as Appropriate) * Plan of Care - Bernadette Ford RN - 03/07/2024 3:54 PM EDT OUTCOME EVALUATION NOTE: OUTCOME SUMMARY: Patient alert and oriented x 4, on room air. Epidural removed at 1030. Dressing changed to Right plantar foot. Voids per urinal, no BM this shift. Patient family present at bedside, ambulated in hallthis shift. Patient on Carb control diet, tolerating only crackers this shift, Patient had shower, up to chair most of afternoon. PLAN MOVING FORWARD: Vitals q4H I&O q4h Encourage PO intake Encourage ambulation Pain management INDIVIDUALIZED FALL PREVENTION INTERVENTIONS: Patient-specific fall risk factors per assessment: [current deficits]: pain medication, recent surgical procedure Assistance [level of assistance required for transfers and ambulation]: independent Supervision [direct monitoring required during toileting and ADLs]: independent Surveillance [continuous indirect monitoring]: [place]o, room near unit station Patient-specific fall prevention interventions for sensory deficits provided, if applicable: [X] N/A CPG GOAL OUTCOME EVALUATION: ongoing Problem: Adult Inpatient Plan of Care Goal: [...] Outcome: Ongoing (Interventions Implemented as Appropriate) Problem: Pain (Surgery Nonspecified) Goal: Acceptable Pain Control Outcome: Ongoing (Interventions Implemented as Appropriate) Problem: Fall Injury Risk Goal: Absence of Fall and Fall-Related Injury Outcome: Ongoing (Interventions Implemented as Appropriate) * Plan of Care - Scotty Dela Cruz RN - 03/07/2024 2:23 AM EDT OUTCOME EVALUATION NOTE: OUTCOME SUMMARY: A&Ox4, VSS on RA. Patient reports the epidural is managing pain well. Patient wears home CPAP at night. Q4 blood sugar checks did not require insulin administration overnight. Around midnight patient reports nausea, IV compazine given with desired effect. Voiding urine adequately via urinal/BSC. Will continue to monitor and update MD as needed. Plan of care is ongoing. PLAN MOVING FORWARD: Clear liquid diet Daily weight VS Q4 while awake I&O Q4 Q4 blood sugar monitoring Encourage OOB/ambulation Pain management Discharge planning INDIVIDUALIZED FALL PREVENTION INTERVENTIONS: Patient-specific fall risk factors per assessment: [current deficits]: recent surgical procedure, narcotic therapy for pain control, tethering lines, unfamiliar environment, generalized weakness Assistance [level of assistance required for transfers and ambulation]: standby assist Supervision [direct monitoring required during toileting and ADLs]: independent Surveillance [continuous indirect monitoring]: room near nurses station, purposeful rounding Patient-specific fall prevention interventions for sensory deficits provided, if applicable: [X] Yes non-slip socks when OOB, bed in low position, call ibarra within reach, lighting adjusted CARE PLAN GOAL OUTCOME EVALUATION: Problem: Bleeding (Surgery Nonspecified) Goal: Absence of Bleeding Outcome: Ongoing (Interventions Implemented as Appropriate) Problem: Bowel Motility Impaired (Surgery Nonspecified) Goal: Effective Bowel Elimination Outcome: Ongoing (Interventions Implemented as Appropriate) Problem: Infection (Surgery Nonspecified) Goal: Absence of Infection Signs and Symptoms Outcome: Ongoing (Interventions Implemented as Appropriate) Problem: Ongoing Anesthesia Effects (Surgery Nonspecified) Goal: Anesthesia/Sedation Recovery Outcome: Ongoing (Interventions Implemented as Appropriate) Problem: Pain (Surgery Nonspecified) Goal: Acceptable Pain Control Outcome: Ongoing (Interventions Implemented as Appropriate) Problem: Postoperative Nausea and Vomiting (Surgery Nonspecified) Goal: Nausea and Vomiting Relief Outcome: Ongoing (Interventions Implemented as Appropriate) Problem: Postoperative Urinary Retention (Surgery Nonspecified) Goal: Effective Urinary Elimination Outcome: Ongoing (Interventions Implemented as Appropriate) Problem: Adult Inpatient Plan of Care Goal: [...] Injury Outcome: Ongoing (Interventions Implemented as Appropriate) * Plan of Care - Dilma Dominique RN - 03/06/2024 5:34 PM EDT OUTCOME EVALUATION NOTE: OUTCOME SUMMARY: Pt is AxOx4, VSS on RA, afebrile. No complaints of SOB, N/V, or chest pain. Scheduled bowel meds given, as well as a one time suppository. Two BMs noted this shift. Voiding adequately via urinal. Patient up in the chair and ambulated around the unit multiple times with girlfriend. Pt c/o no pain this shift, managed with scheduled tylenol and epidural. Q4 BG checks, insulin given when order parameters were met. Right plantar neuropathic wound dressing changed, CDI. Patient advanced from a sips and chips diet to a clear liquid diet. Encouraging patient to drink more fluids, MD reinforced education. Ostomy appliance was placed over old BASIA site due to serosanguinous drainage. Plan of care is ongoing. PLAN MOVING FORWARD: Pain management Discharge planning Encourage ambulation Monitor VS and I&Os Q4 BG checks Encourage PO intake Epidural solution expires on 03/06 at 2019 INDIVIDUALIZED FALL PREVENTION INTERVENTIONS: Patient-specific fall risk factors per assessment: [current deficits]: Generalized weakness, unfamiliar environment, acute pain, lines, recent surgery, epidural Assistance [level of assistance required for transfers and ambulation]: SBA w/ walker Supervision [direct monitoring required during toileting and ADLs]: Eyes on / Arms reach Surveillance [continuous indirect monitoring]: Call light within reach, room near unit station, purposeful rounding Patient-specific fall prevention interventions for sensory deficits provided, if applicable: Yes CARE PLAN GOAL OUTCOME EVALUATION: Problem: Bleeding (Surgery Nonspecified) Goal: Absence of Bleeding Outcome: Ongoing (Interventions Implemented as Appropriate) Problem: Bowel Motility Impaired (Surgery Nonspecified) Goal: Effective Bowel Elimination Outcome: Ongoing (Interventions Implemented as Appropriate) Problem: Infection (Surgery Nonspecified) Goal: Absence of Infection Signs and Symptoms Outcome: Ongoing (Interventions Implemented as Appropriate) Problem: Ongoing Anesthesia Effects (Surgery Nonspecified) Goal: Anesthesia/Sedation Recovery Outcome: Ongoing (Interventions Implemented as Appropriate) Problem: Pain (Surgery Nonspecified) Goal: Acceptable Pain Control Outcome: Ongoing (Interventions Implemented as Appropriate) Problem: Postoperative Nausea and Vomiting (Surgery Nonspecified) Goal: Nausea and Vomiting Relief Outcome: Ongoing (Interventions Implemented as Appropriate) Problem: Postoperative Urinary Retention (Surgery Nonspecified) Goal: Effective Urinary Elimination Outcome: Ongoing (Interventions Implemented as Appropriate) Problem: Adult Inpatient Plan of Care Goal: [...] Injury Outcome: Ongoing (Interventions Implemented as Appropriate) * Plan of Care - Katelynn Unger RN - 03/06/2024 6:20 AM EDT OUTCOME EVALUATION NOTE: OUTCOME SUMMARY: PT is A&Ox4, VSS, on home CPAP overnight, Pain somewhat managed with ordered medications. See chart for fingersticks and insulin coverage overnight. PT able to void x2 overnight, continue to monitor bladder scans. At around 0430. PT had a Lg amount of emesis. Pt reports having intermittent nausea on and off throughout the day and night. X-ray and EKG done. Diet back to sips and chips. PLAN MOVING FORWARD: PT/OT, manage pain, ambulate, monitor I&O's, monitor bladder scans INDIVIDUALIZED FALL PREVENTION INTERVENTIONS: Patient-specific fall risk factors per assessment: [current deficits]: lines/wires/drains, epidural, pain, recent surgery Assistance [level of assistance required for transfers and ambulation]: SBA Supervision [direct monitoring required during toileting and ADLs]: Eyes on Surveillance [continuous indirect monitoring]: Bed alarm, call light in reach, room near nurses station, rounding Patient-specific fall prevention interventions for sensory deficits provided, if applicable: Yes CARE PLAN GOAL OUTCOME EVALUATION: Problem: Bleeding (Surgery Nonspecified) Goal: Absence of Bleeding Outcome: Ongoing (Interventions Implemented as Appropriate) Problem: Bowel Motility Impaired (Surgery Nonspecified) Goal: Effective Bowel Elimination Outcome: Ongoing (Interventions Implemented as Appropriate) Problem: Infection (Surgery Nonspecified) Goal: Absence of Infection Signs and Symptoms Outcome: Ongoing (Interventions Implemented as Appropriate) Problem: Ongoing Anesthesia Effects (Surgery Nonspecified) Goal: Anesthesia/Sedation Recovery Outcome: Ongoing (Interventions Implemented as Appropriate) Problem: Pain (Surgery Nonspecified) Goal: Acceptable Pain Control Outcome: Ongoing (Interventions Implemented as Appropriate) Problem: Postoperative Nausea and Vomiting (Surgery Nonspecified) Goal: Nausea and Vomiting Relief Outcome: Ongoing (Interventions Implemented as Appropriate) Problem: Postoperative Urinary Retention (Surgery Nonspecified) Goal: Effective Urinary Elimination Outcome: Ongoing (Interventions Implemented as Appropriate) Problem: Adult Inpatient Plan of Care Goal: [...] Injury Outcome: Ongoing (Interventions Implemented as Appropriate) * Plan of Care - Dilma Dominique RN - 03/05/2024 6:09 PM EDT OUTCOME EVALUATION NOTE: OUTCOME SUMMARY: Pt is AxOx4, VSS on RA, afebrile. No complaints of SOB, N/V, or chest pain. No BM noted this shift.Voiding adequately via bailey. Bailey care completed this shift. Abiley discontinued and removed this afternoon, DTV at 1500, bladder volume was 86mL at 1600, MD aware. MD requested for another bladder scan at 1700 with a result of 206mL. ordered a straight cath, expert medical writer straight cathed 300mL of urine at 1752. Patient up in the chair and ambulated around the unit multiple times with girlfriend. Ptc/o no pain this shift, managed with scheduled tylenol and epidural. Q4 BG checks, insulin given when order parameters were met. Right plantar neuropathic wound dressing is CDI. Patient advanced froma clear liquid diet with toast to a carb counting diet. IV maintenance fluids were discontinued. Epidural dressing was peeling off, APS notified, at bedside and applied a new dressing and decreased continuous epidural dose from 6mL/hr to 3mL/hr. Shift totals completed. MD at bedside and removed BASIA drain, covered with gauze and medipore tape. Large amount of serosanguinous drainage from BASIA site, ostomy appliance was placed over site. Gauze and medipore tape placed on midline incision for small serosanguinous drainage. Plan of care is ongoing. PLAN MOVING FORWARD: Pain management Discharge planning Encourage ambulation Monitor VS and I&Os Q4 BG checks Encourage PO intake Epidural solution expires on 03/05 at 2019 INDIVIDUALIZED FALL PREVENTION INTERVENTIONS: Patient-specific fall risk factors per assessment: [current deficits]: Generalized weakness, unfamiliar environment, acute pain, lines/drains, recent surgery, epidural Assistance [level of assistance required for transfers and ambulation]: SBA w/ walker Supervision [direct monitoring required during toileting and ADLs]: Eyes on / Arms reach Surveillance [continuous indirect monitoring]: Call light within reach, room near unit station, purposeful rounding Patient-specific fall prevention interventions for sensory deficits provided, if applicable: Yes CARE PLAN GOAL OUTCOME EVALUATION: Problem: Bleeding (Surgery Nonspecified) Goal: Absence of Bleeding Outcome: Ongoing (Interventions Implemented as Appropriate) Problem: Bowel Motility Impaired (Surgery Nonspecified) Goal: Effective Bowel Elimination Outcome: Ongoing (Interventions Implemented as Appropriate) Problem: Infection (Surgery Nonspecified) Goal: Absence of Infection Signs and Symptoms Outcome: Ongoing (Interventions Implemented as Appropriate) Problem: Ongoing Anesthesia Effects (Surgery Nonspecified) Goal: Anesthesia/Sedation Recovery Outcome: Ongoing (Interventions Implemented as Appropriate) Problem: Pain (Surgery Nonspecified) Goal: Acceptable Pain Control Outcome: Ongoing (Interventions Implemented as Appropriate) Problem: Postoperative Nausea and Vomiting (Surgery Nonspecified) Goal: Nausea and Vomiting Relief Outcome: Ongoing (Interventions Implemented as Appropriate) Problem: Postoperative Urinary Retention (Surgery Nonspecified) Goal: Effective Urinary Elimination Outcome: Ongoing (Interventions Implemented as Appropriate) Problem: Adult Inpatient Plan of Care Goal: [...] Injury Outcome: Ongoing (Interventions Implemented as Appropriate) * Care Management - Nimo Wayne RN - 03/05/2024 12:30 PM EDT OFFICE OF CARE MANAGEMENT PROGRESS NOTE LOS: Hospital Day 4 days Chart reviewed, care reviewed with primary team and at interdisciplinary rounds. 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 Decision Maker: Self Functional status prior to admission: Independent Home Environment: Others in the home: significant other, child(denia), minor, pet(s) (Patient lives with his s.o., 4 combined minor children, 2 dogs, and 1 cat.). Current Living Arrangements: home/apartment/condo. Accessibility Concerns: Patient lives in a two story home with 15 stairs to his bedroom and 2 TANJA.. Current Functional Ability: Assistive Person and Equipment DME used at home: none DME Needed at Discharge: No Patient is insured through: Primary Insurance: [employer] Payor: [facility] / Plan: [facility] PPO / Product Type: *No Product type* / Secondary Insurance: N/A Last Physical Therapy Recommendation: home with home health with to be determined Last Occupational Therapy Recommendation: home with supervision, to be determined pending medical status & functional progression with walker, front wheeled Plan for discharge is: Home w/o Services Outpatient Agency/Support Group Needs: None Agency Referrals: Transportation: family or friend will provide Barriers to discharge: None Plan going forward: Weaning PCEA for pain management, advancing to carb count diet, d/c IVF, d/c bailey-void trial, BASIA drain, trending amylase, work with PT/OT, DM recs, wound care, and bowel regimen.Care Management will continue to follow and assist with discharge planning and coordination of careas indicated. Anticipated Date of Discharge: 03/07/2024 JACKIE Mcguire, clothes shaker of Care Management Pager [phone] * Plan of Care - Katelynn Ungre RN - 03/05/2024 4:02 AM EDT OUTCOME EVALUATION NOTE: OUTCOME SUMMARY: PT is A&Ox4, VSS, on home CPAP overnight, Pain managed with ordered medications, PT taking Tylenol, but has not needed oxy at this time.ee chart for fingersticks and insulin coverage overnight. MIVF with D5 running as ordered. AUOP via bailey. Scant output from BASIA. PT has tolerated small sips ofwater with meds. Encouraging PO intake. PLAN MOVING FORWARD: PT/OT, manage pain, ambulate, monitor I&O's INDIVIDUALIZED FALL PREVENTION INTERVENTIONS: Patient-specific fall risk factors per assessment: [current deficits]: lines/wires/drains, epidural, pain, recent surgery Assistance [level of assistance required for transfers and ambulation]: SBA Supervision [direct monitoring required during toileting and ADLs]: Eyes on Surveillance [continuous indirect monitoring]: Bed alarm, call light in reach, room near nurses station, rounding Patient-specific fall prevention interventions for sensory deficits provided, if applicable: Yes CARE PLAN GOAL OUTCOME EVALUATION: Problem: Bleeding (Surgery Nonspecified) Goal: Absence of Bleeding Outcome: Ongoing (Interventions Implemented as Appropriate) Problem: Bowel Motility Impaired (Surgery Nonspecified) Goal: Effective Bowel Elimination Outcome: Ongoing (Interventions Implemented as Appropriate) Problem: Infection (Surgery Nonspecified) Goal: Absence of Infection Signs and Symptoms Outcome: Ongoing (Interventions Implemented as Appropriate) Problem: Ongoing Anesthesia Effects (Surgery Nonspecified) Goal: Anesthesia/Sedation Recovery Outcome: Ongoing (Interventions Implemented as Appropriate) Problem: Pain (Surgery Nonspecified) Goal: Acceptable Pain Control Outcome: Ongoing (Interventions Implemented as Appropriate) Problem: Postoperative Nausea and Vomiting (Surgery Nonspecified) Goal: Nausea and Vomiting Relief Outcome: Ongoing (Interventions Implemented as Appropriate) Problem: Postoperative Urinary Retention (Surgery Nonspecified) Goal: Effective Urinary Elimination Outcome: Ongoing (Interventions Implemented as Appropriate) Problem: Adult Inpatient Plan of Care Goal: [...] Injury Outcome: Ongoing (Interventions Implemented as Appropriate) * Plan of Care - Dilma Dominique RN - 03/04/2024 6:06 PM EDT OUTCOME EVALUATION NOTE: OUTCOME SUMMARY: Pt is AxOx4, VSS on RA, afebrile. No complaints of SOB, N/V, or chest pain. No BM noted this shift.Voiding adequately via bailey. Bailey care completed this shift. Pt c/o no pain this shift, managed with scheduled tylenol and epidural. Q4 BG checks, insulin given when order parameters were met. Right plantar neuropathic wound dressing changed. Patient advanced from a clear liquid diet with a fluidrestriction to a clear liquid diet with toast and no fluid restriction. IV maintenance fluids running continuously at 50mL/hr. Shift totals completed. Pt worked with OT this shift. Patient in the chair and ambulated around the unit multiple times with staff. Plan of care is ongoing. PLAN MOVING FORWARD: Pain management Discharge planning Encourage ambulation Monitor VS and I&Os Q4 BG checks Epidural solution expires on 03/04 at 2019 INDIVIDUALIZED FALL PREVENTION INTERVENTIONS: Patient-specific fall risk factors per assessment: [current deficits]: Generalized weakness, unfamiliar environment, acute pain, lines/drains, recent surgery, epidural Assistance [level of assistance required for transfers and ambulation]: SBA Supervision [direct monitoring required during toileting and ADLs]: Eyes on / Arms reach Surveillance [continuous indirect monitoring]: Call light within reach, room near unit station, purposeful rounding Patient-specific fall prevention interventions for sensory deficits provided, if applicable: Yes CARE PLAN GOAL OUTCOME EVALUATION: Problem: Bleeding (Surgery Nonspecified) Goal: Absence of Bleeding Outcome: Ongoing (Interventions Implemented as Appropriate) Problem: Bowel Motility Impaired (Surgery Nonspecified) Goal: Effective Bowel Elimination Outcome: Ongoing (Interventions Implemented as Appropriate) Problem: Infection (Surgery Nonspecified) Goal: Absence of Infection Signs and Symptoms Outcome: Ongoing (Interventions Implemented as Appropriate) Problem: Ongoing Anesthesia Effects (Surgery Nonspecified) Goal: Anesthesia/Sedation Recovery Outcome: Ongoing (Interventions Implemented as Appropriate) Problem: Pain (Surgery Nonspecified) Goal: Acceptable Pain Control Outcome: Ongoing (Interventions Implemented as Appropriate) Problem: Postoperative Nausea and Vomiting (Surgery Nonspecified) Goal: Nausea and Vomiting Relief Outcome: Ongoing (Interventions Implemented as Appropriate) Problem: Postoperative Urinary Retention (Surgery Nonspecified) Goal: Effective Urinary Elimination Outcome: Ongoing (Interventions Implemented as Appropriate) Problem: Adult Inpatient Plan of Care Goal: [...] Injury Outcome: Ongoing (Interventions Implemented as Appropriate) * Consult Note - Kusum Munoz RN - 03/04/2024 11:09 AM EDTSummary: VAS Rounding During VAS Purposeful Rounding, an assessment of your patient's venous access was performed fby theVascular Access Service. The following tasks were performed if needed and communicated to the bedside RN Choose all that apply: [x] PIV(s) checked for patency if daily need for flush needs to be performed [] CVAD was checked for patency if daily flush needs to be performed [] IV tubing clamped or capped if needed [] Visual inspection of your patient's central line dressing integrity [] Review of indications for vascular access [] A photo was taken of your patient's central line [x] Visual inspection of your patient's IV dressing [...] (either PRN or weekly) [] Other * Plan of Care - Katelynn Unger RN - 03/04/2024 4:28 AM EDT OUTCOME EVALUATION NOTE: OUTCOME SUMMARY: PT is A&Ox4, VSS, on home CPAP overnight, pain somewhat managed with epidural, see chart for fingersticks and insulin coverage overnight. MIVF with D5 running as ordered. AUOP via bailey. Scant output from BASIA. PT would benefit if AM team would add other medications for pain besides epidural. PLAN MOVING FORWARD: PT/OT, manage pain, ambulate, monitor I&O's INDIVIDUALIZED FALL PREVENTION INTERVENTIONS: Patient-specific fall risk factors per assessment: [current deficits]: lines/wires/drains, epidural, pain, recent surgery Assistance [level of assistance required for transfers and ambulation]: SBA Supervision [direct monitoring required during toileting and ADLs]: Eyes on Surveillance [continuous indirect monitoring]: Bed alarm, call light in reach, room near nurses station, rounding Patient-specific fall prevention interventions for sensory deficits provided, if applicable: Yes CARE PLAN GOAL OUTCOME EVALUATION: Problem: Bleeding (Surgery Nonspecified) Goal: Absence of Bleeding Outcome: Ongoing (Interventions Implemented as Appropriate) Problem: Bowel Motility Impaired (Surgery Nonspecified) Goal: Effective Bowel Elimination Outcome: Ongoing (Interventions Implemented as Appropriate) Problem: Infection (Surgery Nonspecified) Goal: Absence of Infection Signs and Symptoms Outcome: Ongoing (Interventions Implemented as Appropriate) Problem: Ongoing Anesthesia Effects (Surgery Nonspecified) Goal: Anesthesia/Sedation Recovery Outcome: Ongoing (Interventions Implemented as Appropriate) Problem: Pain (Surgery Nonspecified) Goal: Acceptable Pain Control Outcome: Ongoing (Interventions Implemented as Appropriate) Problem: Postoperative Nausea and Vomiting (Surgery Nonspecified) Goal: Nausea and Vomiting Relief Outcome: Ongoing (Interventions Implemented as Appropriate) Problem: Postoperative Urinary Retention (Surgery Nonspecified) Goal: Effective Urinary Elimination Outcome: Ongoing (Interventions Implemented as Appropriate) Problem: Adult Inpatient Plan of Care Goal: [...] Injury Outcome: Ongoing (Interventions Implemented as Appropriate) * Plan of Care - Violeta Manley RN - 03/03/2024 6:45 PM EDT OUTCOME EVALUATION NOTE: OUTCOME SUMMARY: A&Ox4, VSS on RA. NGT clamp trial this AM & NGT removed. Epidural & tylenol for pain control- reporting 2-4/10 pain, epidural attempt 82 & given doses 26. D5/0.45NS/20K going at 100mL/hr. Bilat LE edema 2-3+, Bilat UE 1+. Low urine output this AM, IV 20mg Lasix given, improved urineoutput. Bailey w/ light yellow urine this evening. No BM this shift, faint BS. Midline incision JOSE,edd intact. Adb BASIA to bulb suction w/ dark red drainage, amylase lab sent. Up to chair for most of the day. Ambulated around unitx1 standby assist w/ walker. Call ibarra within reach, pt able to make needs known appropriately. 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, recent surgery, bilat LE baseline numbness Assistance [level of assistance required for transfers and ambulation]: 1 assist w/ walker Supervision [direct monitoring required during toileting and ADLs]: Arms reach Surveillance [continuous indirect monitoring]: Purposeful rounding, call light & personal itemswithin reach, room near nurses station, surveillance monitoring Patient-specific fall prevention interventions for sensory deficits provided, if applicable: Yes, light adjusted for task/safety, non-skid socks OOB CARE PLAN GOAL OUTCOME EVALUATION: Ongoing Problem: Bleeding (Surgery Nonspecified) Goal: Absence of Bleeding Outcome: Ongoing (Interventions Implemented as Appropriate) Problem: Bowel Motility Impaired (Surgery Nonspecified) Goal: Effective Bowel Elimination Outcome: Ongoing (Interventions Implemented as Appropriate) Problem: Infection (Surgery Nonspecified) Goal: Absence of Infection Signs and Symptoms Outcome: Ongoing (Interventions Implemented as Appropriate) Problem: Ongoing Anesthesia Effects (Surgery Nonspecified) Goal: Anesthesia/Sedation Recovery Outcome: Ongoing (Interventions Implemented as Appropriate) Problem: Pain (Surgery Nonspecified) Goal: Acceptable Pain Control Outcome: Ongoing (Interventions Implemented as Appropriate) Problem: Postoperative Nausea and Vomiting (Surgery Nonspecified) Goal: Nausea and Vomiting Relief Outcome: Ongoing (Interventions Implemented as Appropriate) Problem: Postoperative Urinary Retention (Surgery Nonspecified) Goal: Effective Urinary Elimination Outcome: Ongoing (Interventions Implemented as Appropriate) Problem: Adult Inpatient Plan of Care Goal: [...] Injury Outcome: Ongoing (Interventions Implemented as Appropriate) * Plan of Care - Mae Velazquez RN - 03/03/2024 2:57 AM EDT OUTCOME EVALUATION NOTE: OUTCOME SUMMARY: NGT advanced by , now sitting at 60cm. Dark brown/green output. VSS on RA. A&Ox4. Pain controlled with PCEA. Low UOP. 500 ml bolus given at beginning of shift.No real improvement. Urine is dark and concentrated. No BM this shift. Pt reports minimal flatus. BASIA with dark sanguinous output. X2 bedside abd xray to confirm NGT placement. Will continue with planof care. 0500-1L LR bolus ordered and started for low urine output 0640- team rounding and clamped NGT. PLAN MOVING FORWARD: Wean epidural Monitor VS Monitor I&Os INDIVIDUALIZED FALL PREVENTION INTERVENTIONS: Patient-specific fall risk factors per assessment: [current deficits]: unknown environment, tethering lines and devices, generalized weakness. Assistance [level of assistance required for transfers and ambulation]: Independent Supervision [direct monitoring required during toileting and ADLs]: Independent Surveillance [continuous indirect monitoring]: Room near nursed station, purposeful rounding Patient-specific fall prevention interventions for sensory deficits provided, if applicable: [X] N/A CARE PLAN GOAL OUTCOME EVALUATION: Problem: Pain (Surgery Nonspecified) Goal: Acceptable Pain Control Outcome: Ongoing (Interventions Implemented as Appropriate) Intervention: Prevent or Manage Pain Flowsheets (Taken 03/02/20241999) Diversional Activities: television smartphone Problem: Adult Inpatient Plan of Care Goal: Plan of Care Review Outcome: Ongoing (Interventions Implemented as Appropriate) Flowsheets (Taken 03/03/2024 0255) Plan of Care Reviewed With: patient Goal: Patient-Specific Goal (Individualized) Outcome: Ongoing (Interventions Implemented as Appropriate) Goal: Absence of Hospital-Acquired Illness or Injury Outcome: Ongoing (Interventions Implemented as Appropriate) Intervention: Identify and Manage Fall Risk Flowsheets (Taken 03/02/20241999) Safety Promotion/Fall Prevention: activity supervised safety round/check completed nonskid shoes/slippers when out of bed Intervention: Prevent Skin Injury Flowsheets (Taken 03/02/2024 1500 by Violeta Manley, RN) Body Position: supine weight shifting Intervention: Prevent and Manage VTE (Venous Thromboembolism) Risk Flowsheets (Taken 03/02/20241999) VTE Prevention/Management: anticoagulant therapy SCDs on intermittently Intervention: Prevent Infection Flowsheets (Taken 03/02/20241999) Infection Prevention: rest/sleep promoted Goal: Optimal Comfort and Wellbeing Outcome: Ongoing (Interventions Implemented as Appropriate) Intervention: Provide Person-Centered Care Flowsheets (Taken 03/02/20241999) Trust Relationship/Rapport: care explained choices provided thoughts/feelings acknowledged Goal: Readiness for Transition of Care Outcome: Ongoing (Interventions Implemented as Appropriate) Intervention: Mutually Develop Transition Plan Flowsheets (Taken 03/02/2024 1340 by Nimo Wayne, RN) Equipment Currently Used at Home: none Current Outpatient/Agency/Support Group: none Transportation Anticipated: family or friend will provide Transportation: no concerns Concerns to be Addressed: no discharge needs identified Patient/Family Anticipated Services at Transition: none Patient/Family Anticipates Transition to: home with family / other Readmission Within the Last 30 Days: no previous admission in last 30 days Problem: Fall Injury Risk Goal: Absence of Fall and Fall-Related Injury Outcome: Ongoing (Interventions Implemented as Appropriate) Intervention: Identify and Manage Contributors Flowsheets (Taken 03/02/20241999) Medication Review/Management: medications reviewed Intervention: Promote Injury-Free Environment Flowsheets (Taken 03/02/20241999) Safety Promotion/Fall Prevention: activity supervised safety round/check completed nonskid shoes/slippers when out of bed * Plan of Care - Violeta Manley RN - 03/02/2024 6:48 PM EDT OUTCOME EVALUATION NOTE: OUTCOME SUMMARY: A&Ox4, VSS on RA. Pain managed w/ epidural & IV tylenol. LR going at 100mL/hr. Midline abd dressing w/ dried drainage w/in marked area. Adb BASIA to bulb suction w/ dark red drainage. NG to LCWS- noted that NG is at 45cm initial documentation is 62 cm, pagedx2. Low urine output, 1 L LR bolus admin w/ continued low urine output, notified. Bailey w/ kandace/ dark yellow urine. No BM this shift, faint/ hypoactive BS. Pt worked w/ PT this afternoon, see note for details. 1914 called regarding page about low urine output & NG tube displacement. LR bolus ordered. Paged for one view abd xray order. Call ibarra within reach, pt able to make needs known appropriately. 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 surgery, bilat LE baseline numbness Assistance [level of assistance required for transfers and ambulation]: 1 assist w/ walker Supervision [direct monitoring required during toileting and ADLs]: Arms reach Surveillance [continuous indirect monitoring]: Purposeful rounding, call light & personal itemswithin reach, room near nurses station, surveillance monitoring Patient-specific fall prevention interventions for sensory deficits provided, if applicable: Yes, light adjusted for task/safety, non-skid socks OOB CARE PLAN GOAL OUTCOME EVALUATION: Ongoing Problem: Bleeding (Surgery Nonspecified) Goal: Absence of Bleeding Outcome: Ongoing (Interventions Implemented as Appropriate) Problem: Bowel Motility Impaired (Surgery Nonspecified) Goal: Effective Bowel Elimination Outcome: Ongoing (Interventions Implemented as Appropriate) Problem: Infection (Surgery Nonspecified) Goal: Absence of Infection Signs and Symptoms Outcome: Ongoing (Interventions Implemented as Appropriate) Problem: Ongoing Anesthesia Effects (Surgery Nonspecified) Goal: Anesthesia/Sedation Recovery Outcome: Ongoing (Interventions Implemented as Appropriate) Problem: Pain (Surgery Nonspecified) Goal: Acceptable Pain Control Outcome: Ongoing (Interventions Implemented as Appropriate) Problem: Postoperative Nausea and Vomiting (Surgery Nonspecified) Goal: Nausea and Vomiting Relief Outcome: Ongoing (Interventions Implemented as Appropriate) Problem: Postoperative Urinary Retention (Surgery Nonspecified) Goal: Effective Urinary Elimination Outcome: Ongoing (Interventions Implemented as Appropriate) Problem: Adult Inpatient Plan of Care Goal: [...] Injury Outcome: Ongoing (Interventions Implemented as Appropriate) * Consult Note - Munira Berry APRN - 03/02/2024 2:49 PM EDT Images from the original note were not included. .Diabetes Management Team Inpatient Consult Date of Consultation: 03/02/2024 Consult Requested by: General Surgery Reason for Consultation: Charles Nick is a 48 y.o. male with PMH significant for duodenal carcinoma who was admitted on 03/01/2024 currently POD #1 for a Whipple. 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 Diabetes History: Charles Nick has had diabetes since . Part of this hx was gleaned from Dr Dawson evaluation in 2020 upon referral from [facility]. He was seen briefly in the PACU. He is NPO and has a NG tube to drainage. Current outpatient diabetes regimen: Diabetes Provider: PCP Medications: Farxiga 10 mg POQD Had been on Levemir in the past and metformin 1 GM BID Monitoring is done once or twice a day has a meter at home and at work Most recent HA1c .No results found for: HA1C ordered and pending FROM [employer] ([employer] in 2020) has Ha1C screen shots which showed Ha1C 2017 9.9 -14. Typical diet is:(from dietary recall in 2020) Dietary plan: 24 hour diet recall: Breakast Skip, normally oatmeal at [place] AM snack Lunch Tuna sandwich from vending Afternoon snack Dinner Spaghetti bolognase After dinner snack Exercise routine Preferred exercise biking Frequency None- busy with work and 4 children Diabetes education: we believe he has had at [facility]-was referred to dr dawson from [facility] . Lab Results Component Value Date MICROALBUR 108.1 12/12/2021 Diabetes Complications Status: Eyes: None Kidneys: early Feet: + painful-takes gabapentin Sensory: None Autonomic: None Cardiac: None Current Hospital Diabetes Care: Medications: Lispro sliding scale q 4 hrs Monitoring: q 4 hrs Diet: ROS: . Wt Readings from Last 3 Encounters: 03/01/24 135.2 kg (298 lb) 02/03/24 131.5 kg (289 lb 12.8 oz) 01/24/23 125.7 kg (277 lb 1.6 oz) Constitutional: Has lost 100 lbs in 10 years (!) and gained 21 lbs in 1 year 10 of them in the pastmonth Endocrine: No increased thirst or urination PMH Past Medical History: Diagnosis Date CKD (chronic kidney disease) stage 3, GFR 30-59 ml/min 01/31/2011 Obesity 01/31/2011 Current Hospital Medications: lactated Ringers 1,000 mL IV bolus Intravenous Once Neuraxial/Epidural shift total and Settings verification Epidural 2 Times Daily- Neuraxial Shift Total citalopram 10 mg Oral Daily insulin lispro 1-4 Units Subcutaneous Q4H MIRTA sodium chloride 0.9 % (flush) 5 mL Intravenous BID ketorolac 15 mg Intravenous Q6H MIRTA Followed by [START ON 03/06/2024] ibuprofen 600 mg Oral Q6H MIRTA acetaminophen 975 mg Oral Q6H MIRTA enoxaparin 40 mg Subcutaneous Nightly lidocaine 1 patch Transdermal Q24H Infusions: HYDROmorphone (pf) 10 mcg/mL with BUpivacaine (pf) 0.1% in NS 6 mL/hr (03/01/24 0830) lactated Ringers 100 mL/hr at 03/02/24 0623 PRN: naloxone, nalbuphine, glucose 40% oral geL OR dextrose OR glucagon, sodium chloride 0.9 % (flush), lidocaine Allergy: Allergies Allergen Reactions Penicillins Rash Social history: Social History Tobacco Use Smoking status: Never Smokeless tobacco: Never Vaping Use Vaping status: Never Used Substance Use Topics Alcohol use: Not Currently Drug use: Not Currently Family history: History reviewed. No pertinent family history. Vitals Last value Range last 24 hrs Temperature Temp: 36 ??C (96.8 ??F) Temp: [36 ??C (96.8 ??F)-36.7 ??C (98.1 ??F)] Heart Rate Heart Rate: 83 Heart Rate: [76-86] Blood Pressure BP: 107/63 BP: (107-150)/(63-95) Respiratory Rate Resp: 18 Resp: [13-21] SpO2 SpO2: 95 % SpO2: [93 %-100 %] Physical Exam: Gen: NAD, talking in clear sentences. Laying in bed comfortably HEENT: no LAD, oral mucus membranes moist no obvious inflammation Heart: RRR, no murmurs. Radial pulses +2. Lungs: CTAB, breathing non-labored. No wheezes or rhonchi. Good aeration Abd: Soft, non-distended, non-tender x4 quadrants, +bs SKIN: No open areas or redness to both feet Neuro: Moving all extremities. Grossly non-focal Labs: . Lab Results Component Value Date NA 135 03/02/2024 K 5.0 03/02/2024 CL 103 03/02/2024 CO2 24 03/02/2024 BUN 11 03/02/2024 CREATININE 0.80 03/02/2024 GLUCOSE 199 03/02/2024 CALCIUM 7.9 (L) 03/02/2024 ESTGFR 108 03/02/2024 Lab Results Component Value Date ALT 128 (H) 03/02/2024 AST 89 (H) 03/02/2024 ALKPHOS 97 03/02/2024 BILITOT 0.9 03/02/2024 ALBUMIN 2.8 (L) 03/02/2024 PROT 5.4 (L) 03/02/2024 Assessment: Patient is a 48 y.o. 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 Diabetes suboptimally controlled and complicated by admitting blood sugars due to hold of SGLT-2 and receiving dexamethasone intraoperatively. That resulted in the consequence of putting patient on insulin drip for a few hours. Currently with variability of blood glucose levels while hospitalized requiring adjustment of insulin regimen and DM medications. Thoughts to consider on his situation: With this surgery he did not have a complete pancreatectomy. He and I discussed he would need to use insulin at this time to rest the healing pancreas. He is not insulin naive and was on Levemir 40 units in the past-that was years ago when he was ~ 80lbs heavier. We have no pre-op Ha1C and we wait for the results of same. He was admitted with blood sugar presumably fasting of 207. One could extrapolate and guess his Ha1C will land at ~ 8% Plan: 1. PLEASE start Lantus 8 units qhs tonight (order written) 2. CONTINUE Lispro custom sliding scale for BG>140 sensitive coverage q 4 hours 3. YOU MAY CHOOSE NONE ORDERED Meal-associated Lispro 2-8 units tid ac (or 1unit: 10 gm carb ratio for each meal and snack if you let him eat) Use that when calculating to start if beginning trickle in tube feeds Really looking forward to seeing how his pancreas functions post op for food and insulin and what his Ha1C results to terminal manager diabetes care: Medications - Outpatient treatment regimen recommendations pending based on the hospital course. Monitoring - continue BG tid ac & hs Diet - low fat/low carb diet Exercise - weight-bearing exercise 30 min/day, as tolerated Thank you for allowing us to provide care for your patient .70 minutes of this 80 minute visit was spent with the patient in counseling on diabetes and treatment plan, reviewing all glucose and insulin data as well as relevant laboratory results with the patient, and coordination of care on the inpatient unit * Initial Assessments - Nimo Wayne RN - 03/02/2024 1:46 PM EDT Office of Care Management Initial Assessment Nimo Wayne RN reviewed record and discussed patient with Care Team. Source of Information: Team, bedside nurse, medical record, and Patient (Hand Inspector spoke with the patient in the recovery.) Introduced self/reviewed role; services accepted. Admitted From: Home Reason for Hospitalization: duodenum adenocarcinoma, s/p open whipple Past medical History: Past Medical History: Diagnosis Date CKD (chronic kidney disease) stage 3, GFR 30-59 ml/min 01/31/2011 Obesity 01/31/2011 Hospitalizations Within the Past 30 Days: no previous admission in last 30 days Current Decision-Making Capacity: Self If AD's have not been completed the following surrogate would be surrogate decision maker per [place] surrogate decision making law. (Only good for 180 days) Any patient receiving care in [place] must abide by [place] law. The hierarchy for surrogate decision making is: (a) Patient???s spouse or civil union partner unless there is a divorce proceeding, separation agreement, or restraining order limiting that person???s relationship with the patient. Jenelle Souza, (b) Any adult son or daughter of the patient. (c) Either parent of the patient. (d) Any adult brother or sister of the patient. (e) Any adult grandchild of the patient. (f) Any grandparent of the patient. (g) Any adult aunt, uncle, niece, or nephew of the patient. (h) A close friend of the patient. (i) The agent with financial power of health care attorney or a conservator appointed in accordance with RSA 464-A. (j) The guardian of the patient???s estate. Advance Care Planning: Attempt Cardiopulmonary Resuscitation - Inpatient <no information> -Advanced Directive: Other (AD referral placed.) Current Coping/Education/Information Needs: Patient's s.o. is a nurse so he has declined VNA services upon d/c. Current Functional Ability: Assistive Equipment and Assistive Person Functional Status Prior to Admission: Independent Prior ADLs & IADLs: Independent with all ADLs & IADLs Home Environment: Others in the home: significant other, child(denia), minor, pet(s) (Patient lives with his s.o., 4 combined minor children, 2 dogs, and 1 cat.). Current Living Arrangements: home/apartment/condo. Accessibility Concerns:Patient lives in a two story home with 15 stairs to his bedroom and 2 TANJA.. In the last 12 months, was there a time when you were not able to pay the mortgage or rent on time?: No At any time in the past 12 months, were you homeless or living in a detention (including now)?: No In the past 12 months has the [employer], gas, oil, or water [employer] threatened to shut off services in your home?: No Within the past 12 months, you worried that your food would run out before you got the money to buymore.: Never true Within the past 12 months, the food you bought just didn't last and you didn't have money to get more.: Never true Resource / Environmental Concerns: Resource/Environmental Concerns: none Home Accessibility Concerns: stairs to access bedroom or bathroom In the past 12 months, has lack of transportation kept you from medical appointments or from getting medications?: No In the past 12 months, has lack of transportation kept you from meetings, work, or from getting things needed for daily living?: No Current DME: none Home Address confirmed as: [address] [place] [phone] Social & Family Supports: All names listed below confirmed with patient as current and correct Extended Emergency Contact Information Primary Emergency Contact: JENELLE SOUZA Address: [address] [place] [id number] [place] Relation: Life Partner Current Care Provided by: self Provides Primary Care For: no one Caregiver if needed: significant other Quality of Family relationships: helpful, involved, supportive Community Resources being provided currently: none Behavioral Health History: Patient is being treated with anxiety and depression with medication andtherapy. Substance Use/Abuse confirmed: Social History Tobacco Use Smoking Status Never Smokeless Tobacco Never 0 No problems reported 1-2 Low level 3-5 Moderate level 6-8 Substantial level 9- 10 Severe level 0 to 7 points: Low risk 8 to 15 points: Medium risk 16 to 19 points: High risk 20 to 40 points: Addiction likely Other Pertinent/Service Specific Information: none Health/Prescription Coverage: Primary Insurance: [facility] Payor: [facility] / Plan: [facility] PPO / Product Type: *No Product type* / Secondary Insurance: N/A ; Prescription Coverage: Yes Preferred Pharmacy: [facility] [address] [facility] [address] [address] [facility] [address] - [place], [place] - [address] [place] [id number] Status: Patient is a : No Primary Care Provider confirmed: Olga Hoffman, YOCASTA [phone] Patient/Caregiver Goals of Treatment: Return home with family without VNA services, as his s.o. is a nurse. Potential Needs for Transition of Care: none Agency Referrals: Not Applicable Transportation: no concerns Transportation Anticipated: family or friend will provide Concerns to be Addressed: no discharge needs identified Assessment: Patient is admitted to Surgical Oncology service for duodenum adenocarcinoma, s/p open whipple. Plan going forward: APS-PCEA Pain management, NGT, ROBF, bailey draining CYU, IVF, BASIA drain, sips & chips, trending labs, routine wound care, and wound care for existing foot ulcer. Patient is declining VNA services for discharge because his S.O. is a nurse. Care Management team will continue to follow and assist with discharge planing and coordination of care as indicated. JACKIE Mcguire, clothes shaker of Care Management Pager [phone] * Consult Note - Francine Martinez RN - 03/02/2024 10:56 AM EDT Images from the original note were not included. Certified Wound Care Nurse Note Situation: Asked to see Charles Nick for foot ulcer- present upon admission. Being followed by podiatry outpatient Background: eD-H notes reviewed for history, admitting diagnosis and active problem list. Wound Assessment and Care Provided: Patient seen this morning in room PA22 in bed, reason for visit explained to patient, permission received to assess skin. Anatomical location: right plantar foot Dressing removed: Mepilex Border Cleansed with: Dermal wound cleanser, gauze Wound: thin, adherent slough in the wound bed with new red tissue buds filling in along the periphery Periwound: maceration Dressing applied: Medihoney alginate, Mepilex foam, and Medipore tape to the plantar wound. Toe blister left open to air. Photos taken: Good Score: 19 Nutritional Status Wt Readings from Last 1 Encounters: 03/01/24 135.2 kg (298 lb) Body mass index is 38.26 kg/m??. 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 He reports the plantar wound has been there for about 3 weeks. The wound has a thin slough covering the base with new red tissue buds at the periphery. Macerated noted in the surrounding skin. He is followed by Podiatry at an outside facility. Medihoney alginate is initiated for autolytic debridement, antimicrobial support, and moisture management. The underside of the right hallux is with a reabsorbing blood blister, and nearby puncture points from a biopsy. It will be best to leave this open to air, as the blister roof if dry, intact, and stable. No overt signs of infection. Wound Care Recommendations: Right plantar foot: Medihoney alginate and Mepilex border Nursing to change every Friday, , and Friday and as needed for dressing with 50% or greater strike though drainage. 1. Cleanse the wound with dermal wound cleanser or normal saline. 2. Cut and insert a piece of Medihoney alginate to fit the wound bed. 3. Cover with a Mepilex border. (Medihoney PS# [id number]) Right hallux underside: leave the blister open to air Wound Care Team will follow next week. Discussed plan with: PA: Gary Mtz, secure chat Please contact Francine Martinez RN on secure chat or the wound care team at [phone] or pager [phone] with skin and wound care concerns or questions. Electronically Signed By: Francine Martinez RN * Brief Op Note - Latonia Red MD - 03/01/2024 6:38 PM EDT Brief Operative Note Patient Name: Charles Nick : [id number] MR#: [id number] Case Date: 03/01/2024 Surgeon: Surgeons and Role: * Rudi Hernandez MD - Primary * Latonia Red MD Preoperative diagnosis: DUODENUM ADENCARCINOMA Postoperative diagnosis: DUODENUM ADENCARCINOMA Procedure(s) (LRB): @WHIPPLE PROCEDURE (WRVU 52.84) (N/A) Anesthesia: General Findings: - no gross metastatic disease and notably large uncinate process - whipple performed with BII reconstruction - BASIA drain placed at HJ and PJ anastomosis Complications: none Estimated Blood Loss: 200 mL* No values recorded between 03/01/2024 8:28 AM and 03/01/2024 6:29 PM * Specimens removed during surgery: Order Name Source Comment Collection Info Order Time SPECIMEN TO PATHOLOGY OR DUODENUM ADENCARCINOMA Common hepatic artery lymph node excision No 03/01/2024 10:49 AM Time specimen removed from patient: 10:49 AM Number of tissue samples (in container) 1 Biospecimen to store? No SPECIMEN TO PATHOLOGY OR DUODENUM ADENCARCINOMA Common hepatic artery lymph node #2 excision No 03/01/2024 11:07 AM Time specimen removed from patient: 11:07 AM Number of tissue samples (in container) 1 Biospecimen to store? No SPECIMEN TO PATHOLOGY OR DUODENUM ADENCARCINOMA Common marina duct lymph node excision No 03/01/2024 12:50 PM Time specimen removed from patient: 12:48 PM Number of tissue samples (in container) 1 Biospecimen to store? No SPECIMEN TO PATHOLOGY [place]: Yellow- pancreatic neck margin, Blue paint- vascular groove, [place]- SMA, Green- bile duct margin DUODENUM ADENCARCINOMA Head of pancreas, duodenum, bile duct and antrum excision No 03/01/2024 3:40 PM Time specimen removed from patient: 3:39 PM Number of tissue samples (in container) 1 Biospecimen to store? No Fluids: Intraprocedure Crystalloid Total Intake albumin (human) 5% 250.00 mL lactated ringers infusion 5000.00 mL Total Intake 5250 mL Output Urine Output 475 mL Blood Loss 200 mL Total Output 675 mL Net Net Volume 4575 mL PRBCs: none (See Anesthesia Record/Report for Other Blood Products) Urine Output: 475 mL Drains: 19Fr stephanie drain at HJ and PJ anastomosis Disposition: awakened from anesthesia, extubated and taken to the recovery room in a stable condition, having suffered no apparent untoward event. Condition: doing well without problems Latonia Red MD * Op Note - Rudi Hernandez MD - 03/01/2024 8:28 AM EDT [facility] [place] Oper[place] Note Patient Name: Charles Nick : [id number] MR#: [id number] Case Date: 03/01/2024 Surgeon: Surgeons and Role: * Rudi Hernandez MD - Primary * Latonia Red MD Preoperative diagnosis: DUODENUM ADENCARCINOMA Postoperative diagnosis: DUODENUM ADENCARCINOMA Procedure(s) (LRB): @WHIPPLE PROCEDURE (WRVU 52.84) (N/A) TRANSFER, INTERMEDIATE, ANY PEDICLE FLAP, ANY LOCATION (WRVU 4.77) (N/A) Anesthesia: General Estimated Blood Loss: 200 mL Specimens removed during surgery: Order Name Source Comment Collection Info Order Time SPECIMEN TO PATHOLOGY OR DUODENUM ADENCARCINOMA Common hepatic artery lymph node excision No 03/01/2024 10:49 AM Time specimen removed from patient: 10:49 AM Number of tissue samples (in container) 1 Biospecimen to store? No SPECIMEN TO PATHOLOGY OR DUODENUM ADENCARCINOMA Common hepatic artery lymph node #2 excision No 03/01/2024 11:07 AM Time specimen removed from patient: 11:07 AM Number of tissue samples (in container) 1 Biospecimen to store? No SPECIMEN TO PATHOLOGY OR DUODENUM ADENCARCINOMA Common marina duct lymph node excision No 03/01/2024 12:50 PM Time specimen removed from patient: 12:48 PM Number of tissue samples (in container) 1 Biospecimen to store? No SPECIMEN TO PATHOLOGY [place]: Yellow- pancreatic neck margin, Blue paint- vascular groove, [place]- SMA, Green- bile duct margin DUODENUM ADENCARCINOMA Head of pancreas, duodenum, bile duct and antrum excision No 03/01/2024 3:40 PM Time specimen removed from patient: 3:39 PM Number of tissue samples (in container) 1 Biospecimen to store? No Drains: 19 Fr stephanie drain Surgical Closure: Primary Closure - skin incision is closed but with open spaces for wires, junior, drains or other devices Disposition: awakened from anesthesia, extubated and taken to the recovery room in a stable condition, having suffered no apparent untoward event. Condition: doing well without problems (Please see the Surgical Encounter Summary for any Implant and Specimen details pertinent to this patient.) HPI/Surgical Indications (From clinic note 02/02): Charles Nick is a 48-year-old gentleman with a history of hypertension, chronic kidney disease, biopsy-proven fatty liver disease, type 2 diabetes on Trulicity, with a newly diagnosed duodenal adenocarcinoma. He has undergone staging with an MRI and a PET scan which is notable for 1 FDG G avid lesion in the second portion of the duodenum. Per the endoscopy report this lesion is sessile and is in the posterior wall of the duodenum. The PET scanis also notable for some lymphadenopathy in the neck this is unlikely related to his duodenal primary and may represent a inflammatory response from recent upper respiratory infection. I discussed with Edu that small bowel adenocarcinoma was also rare and that we extrapolate from the colorectalliterature in terms of how to best manage them. In the setting of the duodenal adenocarcinoma in the second portion of the duodenum resection would entail a Whipple procedure. He presents now for surgery Findings: - No gross metastatic disease - Whipple performed with BII reconstruction - BASIA drain placed posterior to HJ and anterior to PJ anastomosis. - pancreas texture intermediate, pancreas duct size 1.5mm - 5Fr pedi feeding tube placed as a pancreatic stent Procedure Description: The pt was identified in the preoperative area and taken for an epidural placement and then brought to the operating room. He was placed in the supine position. Pre-operative antibiotics (Zosyn) were administered and compression devices were place on bilateral lower extremities. Anesthesia was initiated and the patient was intubated, additional PIV and an arterial line wereplaced by anesthesia. A bailey was placed. Charles's abdomen was prepped and draped in the typical sterile fashion using chlorhexidine and Ioban. A surgical timeout was performed and all of the attendants in the operating room were in agreement to proceed. We began by making a midline incision from the xiphoid to just distal to the umbilicus with a 10 blade, the dissection carried through the subcutaneous tissue with electrocautery until the fascia could be appreciated. The fascia was incised in the midline, and the peritoneum was grasped between 2 Schnidt clamps and sharply divided with Metzenbaums. On palpation of the abdominal cavity no adhesions were noted to the anterior abdominal wall, the opening was extended to the extent of the skin incision. The falciform ligament was taken down from the anterior abdominal wall between Parul clamps clamps and was tied off with a 2-0 silk tie. This was preserved to use as a vascular pedicle flap later in the case. Next we set up the Unger retractor to maximize our exposure. We then inspected theabdomen the liver was smooth with, there was no evidence of metastatic disease. We then entered thelesser sac by taking the greater omentum off the transverse colon until we could appreciate the middle colic vessels and the gastroepiploic vessels entering the gastrocolic trunk. The branches of the gastrocolic trunk were divided between silk sutures. This allowed us to visualize the middle colic entering the SMV and we began to develop a infra pancreatic tunnel with a right angle. Next we turned our attention to mobilizing the right colon and we did a generous mobilization of the hepatic flexure. We then performed a Felisha maneuver to medialize the duodenum. I could appreciate several enlarged station 12/13 lymph nodes. Next, we performed the supra pancreatic dissection isolating the common hepatic artery node which was sent for permanent section and identified the common hepatic arterydeep to the node. The right gastric branch was isolated and divided, with 2-0 silk ties. The GDA was also isolated, and 2 oh silks were used to tie the proximal and distal extent. A 4-0 Prolene was used to suture ligate the vessel. The GDA was then divided. The S PDA branch was also coming directlyoff the common hepatic artery and was divided between 2-0 silk. With the GDA divided the portal vein was visible and we began to make the tunnel from the superior aspect of the pancreas. Removed the lymphatic packet lateral to the proper hepatic artery to the common bile duct as well as lateral to the common bile duct.-Circumferentially Around the common bile duct and divided the duct with tenotomy scissors. Bile cultures were sent for anaerobic and anaerobic cultures. And a Pedi Bailey catheter was placed into the bile duct to prevent bile spillage into the abdomen. We then turned our attention to the inferior aspect of the pancreas again placing a Parul clamp posterior to the pancreatic neck to complete the tunnel once this was done and umbilical tape was placed around the pancreatic neck. We then chose a spot to divide at the stomach and took down the omentum with the harmonic up to that point, and also opened up the space and the lesser omentum. We then ensured that the NG tube was removed from the stomach and divided the stomach with a 60 mm purple load with SEAMGUARD. There was a small amount of tissue that did not have edd so we find a second load of the 45 mm purple load with SEAMGUARD. Next we turned our attention to division of the proximal jejunum, dividing the jejunum approximately 8 cm from the ligament of Treitz with a 45 mm palumbo load. The mesentery was tied off with 2-0 silk ties on the stay side and divided with the harmonic. After we took down. Connective tissue attachments were then able to pass the proximal jejunum and duodenum into the right upper quadrant. We then tented the umbilical tape around the pancreatic neck up replaced a Kellyclamp under the neck and guided 1/4 inch Anne Marie over the Parul clamp. Umbilical tape was removed 2-0 silk hemostatic stitches were placed on both sides of our planned transection plane. The first 2 mm of the pancreatic neck were divided with electrocautery the remainder of the pancreas was divided with a 15 blade. Hemostasis was achieved with electrocautery and the cut surface of the pancreas. We then placed a 4 x 4 over further pancreatic body and turned our attention to the uncinate dissection. The patient had a fairly large uncinate process that extended further caudally than typical. Theuncinate dissection was carried out using, 2-0 silk ties and the harmonic. The IPA was visualized and tied off. The vein branches off of the SMV were also isolated with a right angle and tied off. Once the uncinate dissection was complete the specimen was painted and sent for final pathology. 2 large nodes were still noted along the proximal bile duct these were taken and sent to pathology. With the specimen out we turned our attention to the reconstruction. We brought up the proximal jejunum through the defect created at the ligament of Treitz. We examined the cut edge of the pancreas and noted a very small pancreas duct ultimately I was able to get a 1.5 DeBakey dilator into this and the duct was 1.5 mm in size. I was not able to place the 8 Faroese PD feeding tube into the duct, thus I used a 5 Faroese feeding tube which passed easily. I placed that pediatric feeding tube to the side and first focused on creating the HJ anastomosis. This was done with interrupted 5-0 PDS sutures. Next the PJ anastomosis was performed, I first used 2-0 silk pledgeted sutures for a horizontal mattress stitch bringing the jejunum in close proximity to the pancreas. A small enterotomy was made with aneedle tip Bovie and the mucosal edges were secured with a 5-0 PDS. 5-0 PDS was also used to createthe PJ anastomosis, the 5 Faroese feeding tube was cut to 8 cm and placed as an internal stent to bridge to the PJ anastomosis this was secured in place with a 5-0 repeat stitch. The silk mattress sutures were tied and secured an additional stitch anterior to the anastomosis was taken to invaginate the jejunum around the PJ anastomosis. We then turned our attention to reestablishing enteric continuity and created a defect in the mesentery of the transverse colon to the left of the middle colic and a bare area. A loop of jejunum approximately 20 cm distal to the area of the ligament of Treitz was brought through this defect and a B2 reconstruction was performed in a retrocolic retrogastric manner using a 60 mm purple load stapler. The common enterotomy was sutured closed with 3-0 PDS. Additional Lembert's were placed with 3-0 silk. A 19 Faroese drain was brought into the right abdomen and placed posterior to the HJ anastomosis and anterior to the PJ anastomosis. The previously created vascular falciform pedicle flap was placed over the PJ anastomosis and secured in place with 3-0 Vicryl stitches. The abdomen was irrigated with 1 L of warm water and the effluent was suctioned out. Thefascia was then closed with #1 PDS and the skin with edd. The patient tolerated the procedure well. The count at the end of the case was correct. Surgical Infection Prevention Bundle Used? N/A Attestation: Case Date: 03/01/2024 I was present and I participated during the entire procedure (does not need to include opening and closing). Rudi Hernandez MD 03/02/2024 documented in this encounter Plan of Treatment Upcoming Encounters Date Type Department Care Team (Late st Contact Info) Description 05/21/2024 9:00 AM EDT Office [place] [phone] Nighat López MD [facility] [place] [address] 05/28/2024 8:00 AM EDT Office Visit Hematology/Oncology at [address] [phone] Rodriguez Fowler MD [facility] [place] [address] Sherry Cedillo APRN [address] [place] [address] DR HEMATOLOGY AND ONCOLOGY [place], [place] [id number] 05/28/2024 8:30 AM EDT Infusion Hematology Oncology at [address] [phone] 05/28/2024 9:30 AM EDT Clinical Support Hematology/Oncology at [address] [phone] [facility] [place]ATOLOG[place] [address] documented as of this encounter Procedures Procedure Name Priority Date/Time Associated Diagnosis Comments POCT GLUCOSE Routine 03/08/2024 11:26 AM EDT POCT GLUCOSE Routine 03/08/2024 8:13 AM EDT SCAN, PERIPHERAL BLOOD Routine 4:44 AM EDT HEMOGRAM Routine 03/08/2024 4:44 AM EDT DIFFERENTIAL, AUTOMATED Routine 03/08/20 4:44 AM EDT CBC (WITH DIFF) Routine 03/08/2024 4:44 AM EDT COMPREHENSIVE METABOLIC PANEL Routine 03/08/2024 4:44 AM EDT POCT GLUCOSE Routine 03/08/2024 4:25 AM EDT POCT GLUCOSE Routine 03/08/2024 12:06 AM EDT POCT GLUCOSE Routine 03/07/2024 8:35 PM EDT POCT GLUCOSE Routine 03/07/2024 4:08 PM EDT POCT GLUCOSE Routine 03/07/2024 12:20 PM EDT POCT GLUCOSE Routine 03/07/2024 8:35 AM EDT HEMOGRAM Routine 03/07/2024 4:53 AM EDT DIFFERENTIAL, AUTOMATED Routine 03/07/20 4:53 AM EDT CBC (WITH DIFF) Routine 03/07/2024 4:53 AM EDT COMPREHENSIVE METABOLIC PANEL Routine 03/07/2024 4:53 AM EDT POCT GLUCOSE [...] POCT GLUCOSE Routine 03/06/2024 4:39 AM EDT HEMOGRAM Routine 03/06/2024 4:09 AM EDT DIFFERENTIAL, AUTOMATED Routine 03/06/20 4:09 AM EDT CBC (WITH DIFF) Routine 03/06/2024 4:09 AM EDT COMPREHENSIVE METABOLIC PANEL Routine 03/06/2024 4:09 AM EDT POCT GLUCOSE Routine 03/05/2024 11:13 PM EDT POCT GLUCOSE Routine 03/05/2024 7:29 PM EDT POCT GLUCOSE Routine 03/05/2024 4:40 PM EDT AMYLASE LEVEL BODY FLUID Routine 03/05/2024 11:20 AM EDT POCT GLUCOSE Routine 03/05/2024 11:14 AM EDT POCT GLUCOSE Routine 03/05/2024 7:47 AM EDT POCT GLUCOSE Routine 03/05/2024 5:14 AM EDT HEMOGRAM Routine 03/05/2024 4:21 AM EDT DIFFERENTIAL, AUTOMATED Routine 03/05/20 4:21 AM EDT CBC (WITH DIFF) Routine 03/05/2024 4:21 AM EDT COMPREHENSIVE METABOLIC PANEL Routine 03/05/2024 4:21 AM EDT POCT GLUCOSE Routine 03/05/2024 12:28 AM EDT POCT GLUCOSE Routine 03/04/2024 8:02 PM EDT POCT GLUCOSE Routine 03/04/2024 4:18 PM EDT POCT GLUCOSE Routine 03/04/2024 11:34 AM EDT POCT GLUCOSE Routine 03/04/2024 7:30 AM EDT HEMOGRAM Routine 03/04/2024 6:12 AM EDT DIFFERENTIAL, AUTOMATED Routine 03/04/20 6:12 AM EDT CBC (WITH DIFF) Routine [...] POCT GLUCOSE Routine 03/03/2024 3:57 AM EDT SODIUM, URINE, RANDOM Routine 03/03/2024 1:19 AM EDT CREATININE, URINE, RANDOM Routine 03/03/2024 1:19 AM EDT HEMOGRAM STAT 03/03/2024 1:04 AM EDT DIFFERENTIAL, AUTOMATED STAT 03/03/20 1:04 AM EDT GREEN TUBE HOLD Routine 03/03/2024 1:04 AM EDT LACTATE, WHOLE BLOOD [...] ASPARTATE AMINOTRANSFERASE Routine 03/02/2024 5:27 AM EDT HEMOGRAM Routine 03/02/2024 4:30 AM EDT DIFFERENTIAL, AUTOMATED Routine 03/02/20 4:30 AM EDT CBC (WITH DIFF) Routine 03/02/2024 4:30 AM EDT HEMOGLOBIN A1C Routine 03/02/2024 4:30 AM EDT COMPREHENSIVE METABOLIC PANEL Routine 03/02/2024 4:30 AM EDT POCT GLUCOSE Routine 03/02/2024 4:26 AM EDT POCT GLUCOSE Routine 03/02/2024 12:12 AM EDT POCT GLUCOSE Routine 03/01/2024 7:55 PM EDT HEMOGRAM STAT 03/01/2024 7:02 PM EDT DIFFERENTIAL, AUTOMATED STAT 03/01/20 7:02 PM EDT CBC (WITH DIFF) STAT [...] CULTURE Routine 03/01/2024 1:0 0 PM EDT HC BODY FLUID CULTURE Routine 03/01/2024 1:00 PM EDT BODY FLUID CULTURE, AEROBIC Routine 03/01/2024 1:00 PM EDT SPECIMEN TO [...] 03/01/2024 9:31 AM EDT TYPE AND SCREEN ([facility] [place]P/FABIOLA) STAT 03/01/2024 9:31 AM EDT POCT GLUCOSE Routine 03/01/2024 9:14 AM EDT BLOOD GAS ARTERIAL POC Routine 8:39 AM EDT XR FLUORO NO RAD <1HR - OR USE Routine 03/01/2024 7:45 AM EDT Transfer Skin Pedicle Flap ([id number]) 03/01/2024 7:42 AM EDT DUODENUM ADENCARCINOMA Part Remv Panc, 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) 03/01/2024 7:42 AM EDT 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/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 03/01/2024 7:03 AM EDT documented in this encounter Results * Phosphorus (04/20/2024 12:39 PM EDT) Pathologist [facility] Phosphorus 3.1 2.5 - 4.5 mg/dL 04/20/2024 1:28 PM EDT [facility] Blood VENOUS BLOOD SPECIMEN / Unknown Venipuncture / Unknown 04/20/2024 12:39 PM EDT 04/20/2024 12:39 PM EDT Rudi Hernandez MD CHEMISTRY ORDERABLES Performing Organization Address City/[facility]/ZIP Co de Phone Number [facility] [place] [address] * Magnesium (04/20/2024 12:39 PM EDT) [facility] Magnesium 0.74 0.69 - 1.07 mMol/L 04/20/2024 1:28 PM EDT [facility] Blood VENOUS BLOOD SPECIMEN / Unknown Venipuncture / Unknown 04/20/2024 12:39 PM EDT 04/20/2024 12:39 PM EDT Rudi Hernandez MD CHEMISTRY ORDERABLES [facility] [place] [address] * (ABNORMAL) Comprehensive metabolic panel (04/20/2024 12:39 PM EDT) Pathologist [facility] Glucose 204(H) 65 - 199 mg/dL 04/20/2024 1:28 PM EDT [facility] Comment:Glucose Concentratio n >=200 mg/dL plus symptoms is consistent with Diabetes Mellitus. Blood Urea Nitrogen 5(L) 10 - 20 mg/dL 04/20/2024 1:28 PM EDT [facility] Creatinine 0.82 0.80 - 1.50 mg/dL 04/20/2024 1:[facility] Sodium 141 135 - 145 mMol/L 04/20/2024 1:28 PM [facility] Potassium 4.1 3.5 - 5.0 mMol/L 04/20/2024 1:28 PM [facility] Chloride 104 98 - 107 mMol/L 04/20/2024 1:28 PM [facility] Carbon Dioxide 27 22 - 31 mMol/L 04/20/2024 1:28 PM [facility] Anion Gap 10 5 - 15 mMol/L 04/20/2024 1:28 PM [facility] Calcium 9.2 8.5 - 10.5 mg/dL 04/20/2024 1:28 PM [facility] Protein, Total 6.5 6.1 - 8.0 g/dL 04/20/2024 1:28 PM [facility] Albumin 3.5 3.2 - 5.2 g/dL 04/20/2024 1:28 PM [facility] Aspartate Aminotransferase 15 <=39 unit/L 04/20/2024 1:28 PM [facility] Alanine Aminotransferase 14 0 - 55 unit/L 04/20/2024 1:28 PM [facility] Alkaline Phosphatase 71 40 - 130 unit/L 04/20/2024 1:28 PM [facility] Bilirubin, Total 0.3 <=1.3 mg/dL 04/20/2024 1:28 PM [facility] Est Glomerular Filtration Rate - Male 108 mL/min/1. 73 m?? 04/20/2024 1:28 PM [facility] Comment: This patient's estimated [...] Fasting Status No 04/20/2024 1:28 PM EDT [facility] Blood VENOUS BLOOD SPECIMEN / Unknown Venipuncture / Unknown 04/20/2024 12:39 PM EDT 04/20/2024 12:39 PM EDT Rudi Hernandez MD CHEMISTRY ORDERABLES [facility] [place] [address] * (ABNORMAL) CBC (with Diff) (04/20/2024 12:39 PM EDT) White Blood Cell 7.18 x10(3)/mc L 04/20/2024 12:49 PM EDT [facility] Red Blood Cell 5.26 4.58 - 5.54 x10(6)/mc L 04/20/2024 12:49 PM T [facility] Hemoglobin 12.6(L) 13.7 - 16.5 g/dL 04/20/2024 12:49 PM [facility] Hematocrit 40.5 40.5 - 48.5 % 04/20/2024 12:49 PM [facility] Mean Cell Volume 77.0(L) 82.9 - 93.1 fL 04/20/2024 12:49 PM T [facility] Mean Cell Hemoglobin 24.0(L) 27.5 - 32.1 pg 04/20/2024 12:49 PM [facility] Mean Cell Hemoglobin Concentration 31.1(L) 32.0 - 35.7 g/dL 04/20/2024 12:49 PM [facility] Platelet 178 145 - 357 x10(3)/mc L 04/20/2024 12:49 PM [facility] Mean Platelet Volume 10.5 7.6 - 12.9 fL 04/20/2024 12:49 PM [facility] RDW Standard Deviation 48.7(H) 36.0 - 45.0 fL 04/20/2024 12:49 PM [facility] RDW coefficient of variation 17.7(H) 11.4 - 13.8 % 04/20/2024 12:49 PM [facility] NRBC% auto 0.0 % 04/20/2024 12:49 PM [facility] NRBC Absolute 0.00 0.00 - 0.00 x10(3)/mc L 04/20/2024 12:49 PM [facility] Neutrophil % 66.4 % 04/20/2024 12:49 PM [facility] Neutrophil Absolute (ANC) - Automated 4.77 1.70 - 6.10 x10(3)/mc L 04/20/2024 12:49 PM [facility] Lymph % 20.8 % 04/20/2024 12:49 PM [facility] Lymph Absolute 1.49 0.90 - 3.20 x10(3)/mc L 04/20/2024 12:49 PM [facility] Monocyte % 6.1 % 04/20/2024 12:49 PM [facility] Monocyte Absolute 0.44 0.30 - 0.90 x10(3)/mc L 04/20/2024 12:49 PM [facility] Eos % 5.3 % 04/20/2024 12:49 PM [facility] Eos Absolute 0.38 0.00 - 0.40 x10(3)/mc L 04/20/2024 12:49 PM [facility] Basophil % 0.6 % 04/20/2024 12:49 PM [facility] Baso Absolute 0.04 0.00 - 0.10 x10(3)/mc L 04/20/2024 12:49 PM [facility] Immature Gran % 0.8 % 12:49 PM EDT [facility] Immature Gran Absolute 0.06(H) 0.00 - 0.04 x10(3)/mc L 04/20/2024 12:49 PM EDT [facility] Blood VENOUS BLOOD SPECIMEN / Unknown Venipuncture / Unknown 04/20/2024 12:39 PM EDT 04/20/2024 12:39 PM EDT Rudi Hernandez MD HEMATOLOGY ORDERABLE S [facility] [place] [address] * POCT Glucose (03/08/2024 11:26 AM EDT) Glucose, POC 158 65 - 199 mg/dL [facility] Comment: Supplemental ranges: <140 mg/dL before meals <180 mg/dL all other times of the day Blood 03/08/2024 11:2 6 AM EDT 03/08/2024 11:26 AM EDT Rudi Hernandez MD POINT OF CARE TEST O RDERABLES Performing Organization Address [facility]/ZIP Co de Phone Number [facility] [place] [address] * POCT Glucose (03/08/2024 8:13 AM EDT) Glucose, POC 170 65 - 199 mg/dL [facility] Comment: Supplemental ranges: <140 mg/dL before meals <180 mg/dL all other times of the day Blood 03/08/2024 8:13 AM EDT 03/08/2024 8:13 AM EDT Rudi Hernandez MD POINT OF CARE TEST O RDERABLES Performing Organization Address City/[facility]/ZIP Co de Phone Number [facility] [place] [address] * Scan, Peripheral Blood (03/08/2024 4:44 AM EDT) Plat estimate Normal [facility] RBC Morphology Abnormal [facility] Hypochromia Slight [facility] Polychromasia Present >5/HPF [facility] [place] Cells 6-10 /HPF [facility] Blood 03/08/2024 4:44 AM EDT 03/08/2024 5:05 AM EDT Narrative Resulting Agency Comment Spec In Lab Latonia Red MD HEMATOLOGY ORDERABLE S [facility] [place] [address] * (ABNORMAL) Differential, Automated (03/08/2024 4:44 AM EDT) Neutrophil % 84.9 % [facility] Neutrophil Absolute 8.47(H) 1.70 - 6.10 x10(3)/mc L [facility] Lymph % 8.6 % [facility] Lymphocytes Abs 0.9 0.9 - 3.2 x10(3)/mc L [facility] Monocyte % 4.7 % [facility] Monocyte Abs 0.5 0.3 - 0.9 x10(3)/mc L [facility] Eos % 1.0 % [facility] Eosinophils Abs 0.1 0.0 - 0.4 x10(3)/mc L [facility] Basophil % 0.3 % [facility] Baso Absolute 0.0 0.0 - 0.1 x10(3)/mc L [facility] Immature Gran % 0.50 % [facility] Comment: Immature granulocytes(IG's)percentage and absolute count will include metamyelocytes, myelocytes, and promyelocytes. Blood smears from CBCs yielding IG's will be scanned manually for concordance. If this scan disagrees with the automated IG or if promyelocytes are noted, a manual differential will be performed. Immature Gran Absolute 0.05(H) 0.00 - 0.04 x10(3)/[facility] Blood 03/08/2024 4:44 AM EDT 03/08/2024 5:05 AM EDT Narrative Resulting Agency Comment Spec In Lab Latonia Red MD HEMATOLOGY ORDERABLE S [facility] [place] [address] * (ABNORMAL) Hemogram (03/08/2024 4:44 AM EDT) White Blood Cell 10.0(H) 4.0 - 9.5 x10(3)/[facility] Red Blood Cell 5.24 4.58 - 5.54 x10(6)/[facility] Hemoglobin 12.7(L) 13.7 - 16.5 g/dL [facility] Hematocrit 39.2(L) 40.5 - 48.5 % [facility] Mean Cell Volume 74.8(L) 82.9 - 93.1 [facility] Mean Cell Hemoglobin 24.2(L) 27.5 - 32.1 pg [facility] Mean Cell Hemoglobin Concentration 32.4 32.0 - 35.7 g/dL [facility] Platelet 295 145 - 357 x10(3)/[facility] RDW Standard Deviation 40.1 36.0 - 45.0 [facility] RDW coefficient of variation 14.9(H) 11.4 - 13.8 % [facility] Mean Platelet Volume 10.1 7.6 - 12.9 [facility] NRBC% auto 0.0 % [facility] NRBC Absolute 0.000 0.000 - 0.000 x10(3)/[facility] Blood 03/08/2024 4:44 AM EDT 03/08/2024 5:05 AM EDT Narrative Resulting Agency Comment Spec In Lab Latonia Red MD HEMATOLOGY ORDERABLE S [facility] [place] [address] * (ABNORMAL) Comprehensive metabolic panel (non-fasting) (03/08/2024 4:44 AM EDT) Glucose 197 65 - 199 mg/dL [facility] Comment:Diabetes: >=200 mg/d L plus symptoms Blood Urea Nitrogen 3(L) 10 - 20 mg/dL [facility] Creatinine 0.57(L) 0.80 - 1.50 mg/dL [facility] Sodium 132(L) 135 - 145 mmol/L [facility] Potassium 3.2(L) 3.5 - 5.0 mmol/L [facility] Comment: Please note: ??Patients with WBC >100,000 may have falsely elevated Potassium levels. ??For accurate Potassium quantification in these patients send serum separator tube (gold top) for subsequent determinations. ??Contact the Clinical Chemistry Laboratory if there are any questions. Chloride 97(L) 98 - 107 mmol/L [facility] Carbon Dioxide 21(L) 22 - 31 mmol/L [facility] Anion Gap 14 5 - 15 mmol/L [facility] Calcium 8.8 8.5 - 10.5 mg/dL [facility] Protein, Total 6.1 6.1 - 8.0 g/dL [facility] Albumin 3.0(L) 3.2 - 5.2 g/dL [facility] Aspartate Aminotransferase 11 0 - 39 unit/L [facility] Alanine Aminotransferase 22 0 - 55 unit/L [facility] Alkaline Phosphatase 94 40 - 130 unit/L [facility] Bilirubin, Total 0.4 0.2 - 1.3 mg/dL [facility] Est Glomerular Filtration Rate 120 >=60 mL/min/1. 73 m?? [facility] Comment: This patient's [...] and symptoms in addition to eGFR. Blood 03/08/2024 4:44 AM EDT 03/08/2024 5:05 AM EDT Narrative Resulting Agency Comment Spec In Lab Rudi Hernandez MD CHEMISTRY ORDERABLES Performing Organization Address [facility]/ZIP Co de Phone Number [facility] [place] [address] * POCT Glucose (03/08/2024 4:25 AM EDT) Glucose, POC 168 65 - 199 mg/dL [facility] Comment: Supplemental ranges: <140 mg/dL before meals <180 mg/dL all other times of the day Blood 03/08/2024 4:25 AM EDT 03/08/2024 4:25 AM EDT Rudi Hernandez MD POINT OF CARE TEST O RDERABLES [facility] [place] [address] * POCT Glucose (03/08/2024 12:06 AM EDT) Glucose, POC 166 65 - 199 mg/dL [facility] Comment: Supplemental ranges: <140 mg/dL before meals <180 mg/dL all other times of the day Blood 03/08/2024 12:0 6 AM EDT 03/08/2024 12:06 AM EDT Rudi Hernandez MD POINT OF CARE TEST O RDERAVANNESSA Performing Organization Address [facility] Co de Phone Number [facility] [place] [address] * POCT Glucose (03/07/2024 8:35 PM EDT) Glucose, POC 177 65 - 199 mg/dL [facility] Comment: Supplemental ranges: <140 mg/dL before meals <180 mg/dL all other times of the day Blood 03/07/2024 8:35 PM EDT 03/07/2024 8:35 PM EDT Rudi Hernandez MD POINT OF CARE TEST O ELKIN Performing Organization Address [facility] de Phone Number [facility] [place] [address] * POCT Glucose (03/07/2024 4:08 PM EDT) Glucose, POC 187 65 - 199 mg/dL [facility] Comment: Supplemental ranges: <140 mg/dL before meals <180 mg/dL all other times of the day Blood 03/07/2024 4:08 PM EDT 03/07/2024 4:08 PM EDT Rudi Hernandez MD POINT OF CARE TEST O RDERAVANNESSA Performing Organization Address [facility] Co de Phone Number [facility] [place] [address] * POCT Glucose (03/07/2024 12:20 PM EDT) Glucose, POC 183 65 - 199 mg/dL [facility] Comment: Supplemental ranges: <140 mg/dL before meals <180 mg/dL all other times of the day Blood 03/07/2024 12:2 0 PM EDT 03/07/2024 12:20 PM EDT Rudi Hernandez MD POINT OF CARE TEST O RDLIAT [facility] [place] [address] * POCT Glucose (03/07/2024 8:35 AM EDT) [facility] Glucose, POC 155 65 - 199 mg/dL [facility] Comment: Supplemental ranges: <140 mg/dL before meals <180 mg/dL all other times of the day Blood 03/07/2024 8:35 AM EDT 03/07/2024 8:35 AM EDT Rudi Hernandez MD POINT OF CARE TEST O ELKIN Performing Organization Address [facility] Co de Phone Number [facility] [place] [address] * (ABNORMAL) Differential, Automated (03/07/2024 4:53 AM EDT) [facility] Neutrophil % 81.0 % [facility] Neutrophil Absolute 6.52(H) 1.70 - 6.10 x10(3)/mc L [facility] Lymph % 11.1 % [facility] Lymphocytes Abs 0.9 0.9 - 3.2 x10(3)/mc L [facility] Monocyte % 5.8 % [facility] Monocyte Abs 0.5 0.3 - 0.9 x10(3)/mc L [facility] Eos % 1.1 % [facility] Eosinophils Abs 0.1 0.0 - 0.4 x10(3)/mc L [facility] Basophil % 0.5 % [facility] Baso Absolute 0.0 0.0 - 0.1 x10(3)/mc L [facility] Immature Gran % 0.50 % [facility] Comment: Immature granulocytes(IG's)percentage and absolute count will include metamyelocytes, myelocytes, and promyelocytes. Blood smears from CBCs yielding IG's will be scanned manually for concordance. If this scan disagrees with the automated IG or if promyelocytes are noted, a manual differential will be performed. Immature Gran Absolute 0.04 0.00 - 0.04 x10(3)/ L [facility] Blood 03/07/2024 4:53 AM EDT 03/07/2024 5:12 AM EDT Narrative Resulting Agency Comment Spec In Lab Latonia Red MD HEMATOLOGY ORDERABLE S [facility] [place] [address] * (ABNORMAL) Hemogram (03/07/2024 4:53 AM EDT) White Blood Cell 8.0 4.0 - 9.5 x10(3)/[facility] Red Blood Cell 4.89 4.58 - 5.54 x10(6)/[facility] Hemoglobin 11.9(L) 13.7 - 16.5 g/dL [facility] Hematocrit 37.5(L) 40.5 - 48.5 % [facility] Mean Cell Volume 76.7(L) 82.9 - 93.1 fL [facility] Mean Cell Hemoglobin 24.3(L) 27.5 - 32.1 pg [facility] Mean Cell Hemoglobin Concentration 31.7(L) 32.0 - 35.7 g/dL [facility] Platelet 230 145 - 357 x10(3)/[facility] RDW Standard Deviation 41.0 36.0 - 45.0 [facility] RDW coefficient of variation 14.7(H) 11.4 - 13.8 % [facility] Mean Platelet Volume 10.5 7.6 - 12.9 fL [facility] NRBC% auto 0.0 % [facility] NRBC Absolute 0.000 0.000 - 0.000 x10(3)/ L [facility] Blood 03/07/2024 4:53 AM EDT 03/07/2024 5:12 AM EDT Narrative Resulting Agency Comment Spec In Lab Latonia Red MD HEMATOLOGY ORDERABLE S [facility] [place] [address] * (ABNORMAL) Comprehensive metabolic panel (non-fasting) (03/07/2024 4:53 AM EDT) Glucose 180 65 - 199 mg/dL [facility] Comment:Diabetes: >=200 mg/d L plus symptoms Blood Urea Nitrogen 5(L) 10 - 20 mg/dL [facility] Creatinine 0.67(L) 0.80 - 1.50 mg/dL [facility] Sodium 136 135 - 145 mmol/L [facility] Potassium 3.8 3.5 - 5.0 mmol/L [facility] Comment: Please note: ??Patients with WBC >100,000 may have falsely elevated Potassium levels. ??For accurate Potassium quantification in these patients send serum separator tube (gold top) for subsequent determinations. ??Contact the Clinical Chemistry Laboratory if there are any questions. Chloride 99 98 - 107 mmol/L [facility] Carbon Dioxide 25 22 - 31 mmol/L [facility] Anion Gap 12 5 - 15 mmol/L [facility] Calcium 8.4(L) 8.5 - 10.5 mg/dL [facility] Protein, Total 5.9(L) 6.1 - 8.0 g/dL [facility] Albumin 3.0(L) 3.2 - 5.2 g/dL [facility] Aspartate Aminotransferase 11 0 - 39 unit/L [facility] Alanine Aminotransferase 25 0 - 55 unit/L [facility] Alkaline Phosphatase 88 40 - 130 unit/L [facility] Bilirubin, Total 0.4 0.2 - 1.3 mg/dL [facility] Est Glomerular Filtration Rate 114 >=60 mL/min/1. 73 m?? [facility] Comment: This patient's [...] and symptoms in addition to eGFR. Blood 03/07/2024 4:53 AM EDT 03/07/2024 5:12 AM EDT Narrative Resulting Agency Comment Spec In Lab Rudi Hernandez MD CHEMISTRY ORDERABLES Performing Organization Address [facility]/ZIP Co de Phone Number [facility] [place] [address] * POCT Glucose (03/07/2024 3:25 AM EDT) Glucose, POC 169 65 - 199 mg/dL [facility] Comment: Supplemental ranges: <140 mg/dL before meals <180 mg/dL all other times of the day Blood 03/07/2024 3:25 AM EDT 03/07/2024 3:25 AM EDT Rudi Hernandez MD POINT OF CARE TEST O RDERABLES [facility] [place] [address] * POCT Glucose (03/06/2024 11:20 PM EDT) Glucose, POC 141 65 - 199 mg/dL [facility] Comment: Supplemental ranges: <140 mg/dL before meals <180 mg/dL all other times of the day Blood 03/06/2024 11:2 0 PM EDT 03/06/2024 11:20 PM EDT Rudi Hernandez MD POINT OF CARE TEST O ELKIN Performing Organization Address City/[facility]/ZIP Co de Phone Number [facility] [place] [address] * POCT Glucose (03/06/2024 8:39 PM EDT) Glucose, POC 152 65 - 199 mg/dL [facility] Comment: Supplemental ranges: <140 mg/dL before meals <180 mg/dL all other times of the day Blood 03/06/2024 8:39 PM EDT 03/06/2024 8:39 PM EDT Rudi Hernandez MD POINT OF CARE TEST O ELKIN Performing Organization Address [facility] Co de Phone Number [facility] [place] [address] * POCT Glucose (03/06/2024 3:50 PM EDT) Glucose, POC 150 65 - 199 mg/dL [facility] Comment: Supplemental ranges: <140 mg/dL before meals <180 mg/dL all other times of the day Blood 03/06/2024 3:50 PM EDT 03/06/2024 3:50 PM EDT Rudi Hernandez MD POINT OF CARE TEST O ELKIN Performing Organization Address City/[facility]/ZIP Co de Phone Number [facility] [place] [address] * POCT Glucose (03/06/2024 11:38 AM EDT) Glucose, POC 158 65 - 199 mg/dL [facility] Comment: Supplemental ranges: <140 mg/dL before meals <180 mg/dL all other times of the day Blood 03/06/2024 11:3 8 AM EDT 03/06/2024 11:38 AM EDT Rudi Hernandez MD POINT OF CARE TEST O RDERABLES Performing Organization Address [facility] Co de Phone Number [facility] [place] [address] * POCT Glucose (03/06/2024 8:07 AM EDT) Glucose, POC 172 65 - 199 mg/dL [facility] Comment: Supplemental ranges: <140 mg/dL before meals <180 mg/dL all other times of the day Blood 03/06/2024 8:07 AM EDT 03/06/2024 8:07 AM EDT Rudi Hernandez MD POINT OF CARE TEST O RDERABLES Performing Organization Address [facility] de Phone Number [facility] [place] [address] * EKG 12 Lead (03/06/2024 6:30 AM EDT) Ventricular rate 82 BPM MUSE SYSTEM Atrial Rate 82 BPM MUSE SYSTEM P-R Interval 164 ms MUSE SYSTEM QRS Duration 100 ms MUSE SYSTEM Q-T Interval 430 ms MUSE SYSTEM QTC Calculated (Bezet) 502 ms MUSE SYSTEM Calculated P [place] 49 degrees MUSE SYSTEM Calculated R [place] 63 degrees MUSE SYSTEM Calculated T [place] 7 degrees MUSE SYSTEM INTERPRETATION Normal sinus rhythm Prolonged QT Abnormal ECG No previous ECGs available Confirmed by MD Gomes Daniel ([id number]) on 03/07/2024 3:35:02 PM MUSE SYSTEM 03/06/2024 6:30 AM EDT 03/07/2024 3:35 PM EDT Rudi Hernandez MD ECG ORDERABLES Performing Organization Address [facility] Co de Phone Number MUSE SYSTEM * XR Abdomen Flat & Upright (03/06/2024 5:29 AM EDT) WORKSTATION ID [id number] DH RAD Anatomical Region Laterality Modality Abdomen N/A [...] who have questions please contact the health grounds caretaker that requested your imaging first. ? Electronically signed by: Jenelle Cervantes MD, [facility] ([phone]), at 03/06/2024 8:15 AM Narrative 03/06/2024 8:15 AM EDT EXAMINATION: XR [...] patients who have questions please contactthe health grounds caretaker that requested your imaging first. Rudi Hernandez MD IMG DX ORDERABLES * POCT Glucose (03/06/2024 4:39 AM EDT) [facility] Glucose, POC 163 65 - 199 mg/dL [facility] Comment: Supplemental ranges: <140 mg/dL before meals <180 mg/dL all other times of the day Blood 03/06/2024 4:39 AM EDT 03/06/2024 4:39 AM EDT Rudi Hernandez MD POINT OF CARE TEST O RDERABLES [facility] [place] [address] * Differential, Automated (03/06/2024 4:09 AM EDT) [facility] Neutrophil % 73.7 % [facility] Neutrophil Absolute 5.52 1.70 - 6.10 x10(3)/[facility] Lymph % 16.4 % [facility] Lymphocytes Abs 1.2 0.9 - 3.2 x10(3)/[facility] Monocyte % 6.8 % [facility] Monocyte Abs 0.5 0.3 - 0.9 x10(3)/[facility] Eos % 2.3 % [facility] Eosinophils Abs 0.2 0.0 - 0.4 x10(3)/[facility] Basophil % 0.5 % [facility] Baso Absolute 0.0 0.0 - 0.1 x10(3)/[facility] Immature Gran % 0.30 % [facility] Comment: Immature granulocytes(IG's)percentage and absolute count will include metamyelocytes, myelocytes, and promyelocytes. Blood smears from CBCs yielding IG's will be scanned manually for concordance. If this scan disagrees with the automated IG or if promyelocytes are noted, a manual differential will be performed. Immature Gran Absolute 0.02 0.00 - 0.04 x10(3)/[facility] Blood 03/06/2024 4:09 AM EDT 03/06/2024 4:29 AM EDT Narrative Resulting Agency Comment Spec In Lab Latonia Red MD HEMATOLOGY ORDERABLE S Performing Organization Address City/State/[facility] Co de Phone Number [facility] [place] [address] * (ABNORMAL) Hemogram (03/06/2024 4:09 AM EDT) White Blood Cell 7.5 4.0 - 9.5 x10(3)/[facility] Red Blood Cell 4.98 4.58 - 5.54 x10(6)/ L [facility] Hemoglobin 12.1(L) 13.7 - 16.5 g/dL [facility] Hematocrit 38.4(L) 40.5 - 48.5 % [facility] Mean Cell Volume 77.1(L) 82.9 - 93.1 fL [facility] Mean Cell Hemoglobin 24.3(L) 27.5 - 32.1 pg [facility] Mean Cell Hemoglobin Concentration 31.5(L) 32.0 - 35.7 g/dL [facility] Platelet 220 145 - 357 x10(3)/[facility] RDW Standard Deviation 41.1 36.0 - 45.0 fL [facility] RDW coefficient of variation 14.8(H) 11.4 - 13.8 % [facility] Mean Platelet Volume 10.5 7.6 - 12.9 fL [facility] NRBC% auto 0.0 % [facility] NRBC Absolute 0.000 0.000 - 0.000 x10(3)/mc L [facility] Blood 03/06/2024 4:09 AM EDT 03/06/2024 4:29 AM EDT Narrative Resulting Agency Comment Spec In Lab Latonia Red MD HEMATOLOGY ORDERABLE S [facility] [place] [address] * (ABNORMAL) Comprehensive metabolic panel (non-fasting) (03/06/2024 4:09 AM EDT) Glucose 169 65 - 199 mg/dL [facility] Comment:Diabetes: >=200 mg/d L plus symptoms Blood Urea Nitrogen 6(L) 10 - 20 mg/dL [facility] Creatinine 0.70(L) 0.80 - 1.50 mg/dL [facility] Sodium 135 135 - 145 mmol/L [facility] Potassium 3.4(L) 3.5 - 5.0 mmol/L [facility] Comment: Please note: ??Patients with WBC >100,000 may have falsely elevated Potassium levels. ??For accurate Potassium quantification in these patients send serum separator tube (gold top) for subsequent determinations. ??Contact the Clinical Chemistry Laboratory if there are any questions. Chloride 98 98 - 107 mmol/L [facility] Carbon Dioxide 27 22 - 31 mmol/L [facility] Anion Gap 10 5 - 15 mmol/L [facility] Calcium 8.6 8.5 - 10.5 mg/dL [facility] Protein, Total 5.9(L) 6.1 - 8.0 g/dL [facility] Albumin 3.1(L) 3.2 - 5.2 g/dL [facility] Aspartate Aminotransferase 12 0 - 39 unit/L [facility] Alanine Aminotransferase 36 0 - 55 unit/L [facility] Alkaline Phosphatase 86 40 - 130 unit/L [facility] Bilirubin, Total 0.4 0.2 - 1.3 mg/dL [facility] Est Glomerular Filtration Rate 113 >=60 mL/min/1. 73 m?? [facility] Comment: This patient's [...] and symptoms in addition to eGFR. Blood 03/06/2024 4:09 AM EDT 03/06/2024 4:29 AM EDT Narrative Resulting Agency Comment Spec In Lab Rudi Hernandez MD CHEMISTRY ORDERABLES Performing Organization Address City/[facility]/ZIP Co de Phone Number [facility] [place] [address] * POCT Glucose (03/05/2024 11:13 PM EDT) Glucose, POC 151 65 - 199 mg/dL [facility] Comment: Supplemental ranges: <140 mg/dL before meals <180 mg/dL all other times of the day Blood 03/05/2024 11:1 3 PM EDT 03/05/2024 11:13 PM EDT Rudi Hernandez MD POINT OF CARE TEST O RDERABLES [facility] [place] [address] * POCT Glucose (03/05/2024 7:29 PM EDT) Glucose, POC 160 65 - 199 mg/dL [facility] Comment: Supplemental ranges: <140 mg/dL before meals <180 mg/dL all other times of the day Blood 03/05/2024 7:29 PM EDT 03/05/2024 7:29 PM EDT Rudi Hernandez MD POINT OF CARE TEST O RDERABLES Performing Organization Address [facility] Co de Phone Number [facility] [place] [address] * POCT Glucose (03/05/2024 4:40 PM EDT) Glucose, POC 141 65 - 199 mg/dL [facility] Comment: Supplemental ranges: <140 mg/dL before meals <180 mg/dL all other times of the day Blood 03/05/2024 4:40 PM EDT 03/05/2024 4:40 PM EDT Rudi Hernandez MD POINT OF CARE TEST O RDERABLES Performing Organization Address [facility] Co de Phone Number [facility] [place] [address] * Amylase Level Body Fluid BASIA Drain (03/05/2024 11:20 AM EDT) Amylase, Fluid 32 unit/L [facility] Comment: Reference intervals are unavailable for this test in body fluids. Comparison of this result with the concentration in blood, serum, or plasma is recommended. This test has not been cleared by the [place] FDA. Performance characteristics of this test for the analysis of body fluids were determined by [facility] in accordance with CLIA requirements. This laboratory is qualified under CLIA to perform high-complexity testing. Amylase BF Type BASIA Drain [facility] BASIA Drain 03/05/2024 11:2 0 AM EDT 03/05/2024 11:37 AM EDT Narrative Resulting Agency Comment Spec In Lab Rudi Hernandez MD BODY FLUIDS AND STOO LS ORDERABLES [facility] [place] [address] * POCT Glucose (03/05/2024 11:14 AM EDT) Glucose, POC 180 65 - 199 mg/dL [facility] Comment: Supplemental ranges: <140 mg/dL before meals <180 mg/dL all other times of the day Blood 03/05/2024 11:1 4 AM EDT 03/05/2024 11:14 AM EDT Rudi Hernandez MD POINT OF CARE TEST O RDERABLES Performing Organization Address [facility]/ZIP Co de Phone Number [facility] [place] [address] * POCT Glucose (03/05/2024 7:47 AM EDT) Glucose, POC 180 65 - 199 mg/dL [facility] Comment: Supplemental ranges: <140 mg/dL before meals <180 mg/dL all other times of the day Blood 03/05/2024 7:47 AM EDT 03/05/2024 7:47 AM EDT Rudi Hernandez MD POINT OF CARE TEST O RDERAVANNESSA [facility] [place] [address] * POCT Glucose (03/05/2024 5:14 AM EDT) Glucose, POC 173 65 - 199 mg/dL [facility] Comment: Supplemental ranges: <140 mg/dL before meals <180 mg/dL all other times of the day Blood 03/05/2024 5:14 AM EDT 03/05/2024 5:14 AM EDT Rudi Hernandez MD POINT OF CARE TEST O RDERABLES [facility] [place] [address] * (ABNORMAL) Differential, Automated (03/05/2024 4:21 AM EDT) Neutrophil % 75.2 % [facility] Neutrophil Absolute 6.45(H) 1.70 - 6.10 x10(3)/ L [facility] Lymph % 13.8 % [facility] Lymphocytes Abs 1.2 0.9 - 3.2 x10(3)/[facility] Monocyte % 7.7 % [facility] Monocyte Abs 0.7 0.3 - 0.9 x10(3)/[facility] Eos % 2.3 % [facility] Eosinophils Abs 0.2 0.0 - 0.4 x10(3)/[facility] Basophil % 0.5 % [facility] Baso Absolute 0.0 0.0 - 0.1 x10(3)/ L [facility] Immature Gran % 0.50 % [facility] Comment: Immature granulocytes(IG's)percentage and absolute count will include metamyelocytes, myelocytes, and promyelocytes. Blood smears from CBCs yielding IG's will be scanned manually for concordance. If this scan disagrees with the automated IG or if promyelocytes are noted, a manual differential will be performed. Immature Gran Absolute 0.04 0.00 - 0.04 x10(3)/ L [facility] Blood 03/05/2024 4:21 AM EDT 03/05/2024 4:39 AM EDT Narrative Resulting Agency Comment Spec In Lab Latonia Red MD HEMATOLOGY ORDERABLE S [facility] [place] [address] * (ABNORMAL) Hemogram (03/05/2024 4:21 AM EDT) [facility] White Blood Cell 8.6 4.0 - 9.5 x10(3)/[facility] Red Blood Cell 4.62 4.58 - 5.54 x10(6)/[facility] Hemoglobin 11.5(L) 13.7 - 16.5 g/dL [facility] Hematocrit 36.5(L) 40.5 - 48.5 % [facility] Mean Cell Volume 79.0(L) 82.9 - 93.1 fL [facility] Mean Cell Hemoglobin 24.9(L) 27.5 - 32.1 pg [facility] Mean Cell Hemoglobin Concentration 31.5(L) 32.0 - 35.7 g/dL [facility] Platelet 165 145 - 357 x10(3)/[facility] RDW Standard Deviation 43.4 36.0 - 45.0 [facility] RDW coefficient of variation 15.1(H) 11.4 - 13.8 % [facility] Mean Platelet Volume 10.7 7.6 - 12.9 [facility] NRBC% auto 0.0 % [facility] NRBC Absolute 0.000 0.000 - 0.000 x10(3)/[facility] Blood 03/05/2024 4:21 AM EDT 03/05/2024 4:39 AM EDT Narrative Resulting Agency Comment Spec In Lab Latonia Red MD HEMATOLOGY ORDERABLE S [facility] [place] [address] * (ABNORMAL) Comprehensive metabolic panel (non-fasting) (03/05/2024 4:21 AM EDT) Glucose 182 65 - 199 mg/dL [facility] Comment:Diabetes: >=200 mg/d L plus symptoms Blood Urea Nitrogen 6(L) 10 - 20 mg/dL [facility] Creatinine 0.80 0.80 - 1.50 mg/dL [facility] Sodium 135 135 - 145 mmol/L [facility] Potassium 3.3(L) 3.5 - 5.0 mmol/L [facility] Comment: Please note: ??Patients with WBC >100,000 may have falsely elevated Potassium levels. ??For accurate Potassium quantification in these patients send serum separator tube (gold top) for subsequent determinations. ??Contact the Clinical Chemistry Laboratory if there are any questions. Chloride 100 98 - 107 mmol/L [facility] Carbon Dioxide 26 22 - 31 mmol/L [facility] Anion Gap 9 5 - 15 mmol/L [facility] Calcium 8.1(L) 8.5 - 10.5 mg/dL [facility] Protein, Total 5.6(L) 6.1 - 8.0 g/dL [facility] Albumin 2.9(L) 3.2 - 5.2 g/dL [facility] Aspartate Aminotransferase 14 0 - 39 unit/L [facility] Alanine Aminotransferase 45 0 - 55 unit/L [facility] Alkaline Phosphatase 79 40 - 130 unit/L [facility] Bilirubin, Total 0.4 0.2 - 1.3 mg/dL [facility] Est Glomerular Filtration Rate 108 >=60 mL/min/1. 73 m?? [facility] Comment: This patient's [...] and symptoms in addition to eGFR. Blood 03/05/2024 4:21 AM EDT 03/05/2024 4:39 AM EDT Narrative Resulting Agency Comment Spec In Lab Rudi Hernandez MD CHEMISTRY ORDERABLES Performing Organization Address City/[facility]/ZIP Co de Phone Number [facility] [place] [address] * POCT Glucose (03/05/2024 12:28 AM EDT) Glucose, POC 166 65 - 199 mg/dL [facility] Comment: Supplemental ranges: <140 mg/dL before meals <180 mg/dL all other times of the day Blood 03/05/2024 12:2 8 AM EDT 03/05/2024 12:28 AM EDT Rudi Hernandez MD POINT OF CARE TEST O RDERABLES Performing Organization Address [facility]/ZIP Co de Phone Number [facility] [place] [address] * POCT Glucose (03/04/2024 8:02 PM EDT) Glucose, POC 174 65 - 199 mg/dL [facility] Comment: Supplemental ranges: <140 mg/dL before meals <180 mg/dL all other times of the day Blood 03/04/2024 8:02 PM EDT 03/04/2024 8:02 PM EDT Rudi Hernandez MD POINT OF CARE TEST O RDERABLES Performing Organization Address City/[facility]/ZIP Co de Phone Number [facility] [place] [address] * POCT Glucose (03/04/2024 4:18 PM EDT) Glucose, POC 174 65 - 199 mg/dL [facility] Comment: Supplemental ranges: <140 mg/dL before meals <180 mg/dL all other times of the day Blood 03/04/2024 4:18 PM EDT 03/04/2024 4:18 PM EDT Ruid Hernandez MD POINT OF CARE TEST O RDERABLES Performing Organization Address [facility] Co de Phone Number [facility] [place] [address] * POCT Glucose (03/04/2024 11:34 AM EDT) Glucose, POC 173 65 - 199 mg/dL [facility] Comment: Supplemental ranges: <140 mg/dL before meals <180 mg/dL all other times of the day Blood 03/04/2024 11:3 4 AM EDT 03/04/2024 11:34 AM EDT Rudi Hernandez MD POINT OF CARE TEST O RDERABLES Performing Organization Address [facility] Co de Phone Number [facility] [place] [address] * POCT Glucose (03/04/2024 7:30 AM EDT) Glucose, POC 185 65 - 199 mg/dL [facility] Comment: Supplemental ranges: <140 mg/dL before meals <180 mg/dL all other times of the day Blood 03/04/2024 7:30 AM EDT 03/04/2024 7:30 AM EDT Rudi Hernandez MD POINT OF CARE TEST O RDERABLES Performing Organization Address [facility] Co de Phone Number [facility] [place] [address] * (ABNORMAL) Differential, Automated (03/04/2024 6:12 AM EDT) Neutrophil % 85.5 % [facility] Neutrophil Absolute 9.96(H) 1.70 - 6.10 x10(3)/mc L [facility] Lymph % 7.7 % [facility] Lymphocytes Abs 0.9 0.9 - 3.2 x10(3)/ L [facility] Monocyte % 5.3 % [facility] Monocyte Abs 0.6 0.3 - 0.9 x10(3)/ L [facility] Eos % 0.7 % [facility] Eosinophils Abs 0.1 0.0 - 0.4 x10(3)/[facility] Basophil % 0.3 % [facility] Baso Absolute 0.0 0.0 - 0.1 x10(3)/[facility] Immature Gran % 0.50 % [facility] Comment: Immature granulocytes(IG's)percentage and absolute count will include metamyelocytes, myelocytes, and promyelocytes. Blood smears from CBCs yielding IG's will be scanned manually for concordance. If this scan disagrees with the automated IG or if promyelocytes are noted, a manual differential will be performed. Immature Gran Absolute 0.06(H) 0.00 - 0.04 x10(3)/[facility] Blood 03/04/2024 6:12 AM EDT 03/04/2024 6:53 AM EDT Narrative Resulting Agency Comment Spec In Lab Latonia Red MD HEMATOLOGY ORDERABLE S [facility] [place] [address] * (ABNORMAL) Hemogram (03/04/2024 6:12 AM EDT) White Blood Cell 11.6(H) 4.0 - 9.5 x10(3)/[facility] Red Blood Cell 4.72 4.58 - 5.54 x10(6)/ L [facility] Hemoglobin 11.7(L) 13.7 - 16.5 g/dL [facility] Hematocrit 37.1(L) 40.5 - 48.5 % [facility] Mean Cell Volume 78.6(L) 82.9 - 93.1 fL [facility] Mean Cell Hemoglobin 24.8(L) 27.5 - 32.1 pg [facility] Mean Cell Hemoglobin Concentration 31.5(L) 32.0 - 35.7 g/dL [facility] Platelet 165 145 - 357 x10(3)/mc L [facility] RDW Standard Deviation 44.1 36.0 - 45.0 fL [facility] RDW coefficient of variation 15.3(H) 11.4 - 13.8 % [facility] Mean Platelet Volume 10.7 7.6 - 12.9 fL [facility] NRBC% auto 0.0 % [facility] NRBC Absolute 0.000 0.000 - 0.000 x10(3)/mc L [facility] Blood 03/04/2024 6:12 AM EDT 03/04/2024 6:53 AM EDT Narrative Resulting Agency Comment Spec In Lab Latonia Red MD HEMATOLOGY ORDERABLE S [facility] [place] [address] * (ABNORMAL) Comprehensive metabolic panel (non-fasting) (03/04/2024 6:12 AM EDT) Glucose 204(H) 65 - 199 mg/dL [facility] Comment:Diabetes: >=200 mg/d L plus symptoms Blood Urea Nitrogen 8(L) 10 - 20 mg/dL [facility] Creatinine 0.76(L) 0.80 - 1.50 mg/dL [facility] Sodium 135 135 - 145 mmol/L [facility] Potassium 3.5 3.5 - 5.0 mmol/L [facility] Comment: Please note: ??Patients with WBC >100,000 may have falsely elevated Potassium levels. ??For accurate Potassium quantification in these patients send serum separator tube (gold top) for subsequent determinations. ??Contact the Clinical Chemistry Laboratory if there are any questions. Chloride 100 98 - 107 mmol/L [facility] Carbon Dioxide 25 22 - 31 mmol/L [facility] Anion Gap 10 5 - 15 mmol/L [facility] Calcium 8.3(L) 8.5 - 10.5 mg/dL [facility] Protein, Total 5.6(L) 6.1 - 8.0 g/dL [facility] Albumin 3.0(L) 3.2 - 5.2 g/dL [facility] Aspartate Aminotransferase 19 0 - 39 unit/L [facility] Alanine Aminotransferase 68(H) 0 - 55 unit/L [facility] Alkaline Phosphatase 84 40 - 130 unit/L [facility] Bilirubin, Total 0.4 0.2 - 1.3 mg/dL [facility] Est Glomerular Filtration Rate 110 >=60 mL/min/1. 73 m?? [facility] Comment: This patient's [...] and symptoms in addition to eGFR. Blood 03/04/2024 6:12 AM EDT 03/04/2024 6:53 AM EDT Narrative Resulting Agency Comment Spec In Lab Rudi Hernandez MD CHEMISTRY ORDERABLES [facility] [place] [address] * Amylase Level Body Fluid BASIA Drain (03/04/2024 5:30 AM EDT) Amylase, Fluid 395 unit/L [facility] Comment: Reference intervals are unavailable for this test in body fluids. Comparison of this result with the concentration in blood, serum, or plasma is recommended. This test has not been cleared by the [place] FDA. Performance characteristics of this test for the analysis of body fluids were determined by [facility] in accordance with CLIA requirements. This laboratory is qualified under CLIA to perform high-complexity testing. Amylase BF Type BASIA Drain [facility] BASIA Drain 03/04/2024 5:30 AM EDT 03/04/2024 5:41 AM EDT Narrative Resulting Agency Comment Spec In Lab Rudi Hernandez MD BODY FLUIDS AND STOO LS ORDERABLES Performing Organization Address [facility]/ZIP Co de Phone Number [facility] [place] [address] * POCT Glucose (03/04/2024 5:15 AM EDT) Glucose, POC 171 65 - 199 mg/dL [facility] Comment: Supplemental ranges: <140 mg/dL before meals <180 mg/dL all other times of the day Blood 03/04/2024 5:15 AM EDT 03/04/2024 5:15 AM EDT Rudi Hernandez MD POINT OF CARE TEST O RDERABLES [facility] [place] [address] * POCT Glucose (03/03/2024 11:19 PM EDT) Glucose, POC 181 65 - 199 mg/dL [facility] Comment: Supplemental ranges: <140 mg/dL before meals <180 mg/dL all other times of the day Blood 03/03/2024 11:1 9 PM EDT 03/03/2024 11:19 PM EDT Rudi Hernandez MD POINT OF CARE TEST O RDERAVANNESSA Performing Organization Address City/[facility]/ZIP Co de Phone Number [facility] [place] [address] * POCT Glucose (03/03/2024 8:31 PM EDT) Glucose, POC 181 65 - 199 mg/dL [facility] Comment: Supplemental ranges: <140 mg/dL before meals <180 mg/dL all other times of the day Blood 03/03/2024 8:31 PM EDT 03/03/2024 8:31 PM EDT Rudi Hernandez MD POINT OF CARE TEST O ARASHERAVANNESSA Performing Organization Address [facility] Co de Phone Number [facility] [place] [address] * POCT Glucose (03/03/2024 3:59 PM EDT) Glucose, POC 174 65 - 199 mg/dL [facility] Comment: Supplemental ranges: <140 mg/dL before meals <180 mg/dL all other times of the day Blood 03/03/2024 3:59 PM EDT 03/03/2024 3:59 PM EDT Rudi Hernandez MD POINT OF CARE TEST O RDERABLES Performing Organization Address City/[facility]/ZIP Co de Phone Number [facility] [place] [address] * (ABNORMAL) Basic Metabolic Panel (non-fasting) (03/03/2024 1:13 PM EDT) Glucose 175 65 - 199 mg/dL [facility] Comment:Diabetes: >=200 mg/d L plus symptoms Blood Urea Nitrogen 11 10 - 20 mg/dL [facility] Creatinine 0.79(L) 0.80 - 1.50 mg/dL [facility] Sodium 137 135 - 145 mmol/L [facility] Potassium 3.6 3.5 - 5.0 mmol/L [facility] Comment: Please note: ??Patients with WBC >100,000 may have falsely elevated Potassium levels. ??For accurate Potassium quantification in these patients send serum separator tube (gold top) for subsequent determinations. ??Contact the Clinical Chemistry Laboratory if there are any questions. Chloride 103 98 - 107 mmol/L [facility] Carbon Dioxide 25 22 - 31 mmol/L [facility] Anion Gap 9 5 - 15 mmol/L [facility] Calcium 8.2(L) 8.5 - 10.5 mg/dL [facility] Est Glomerular Filtration Rate 109 >=60 mL/min/1. 73 m?? [facility] Comment: This patient's [...] and symptoms in addition to eGFR. Blood 03/03/2024 1:13 PM EDT 03/03/2024 1:19 PM EDT Narrative Resulting Agency Comment Spec In Lab Rudi Hernandez MD CHEMISTRY ORDERABLES [facility] [place] [address] * POCT Glucose (03/03/2024 12:20 PM EDT) Glucose, POC 156 65 - 199 mg/dL [facility] Comment: Supplemental ranges: <140 mg/dL before meals <180 mg/dL all other times of the day Blood 03/03/2024 12:2 0 PM EDT 03/03/2024 12:20 PM EDT Rudi Hernandez MD POINT OF CARE TEST O RDERABLES [facility] [place] [address] * Amylase Level Body Fluid (03/03/2024 11:40 AM EDT) Amylase, Fluid 645 unit/L [facility] Comment: Reference intervals are unavailable for this test in body fluids. Comparison of this result with the concentration in blood, serum, or plasma is recommended. This test has not been cleared by the [place] FDA. Performance characteristics of this test for the analysis of body fluids were determined by [facility] in accordance with CLIA requirements. This laboratory is qualified under CLIA to perform high-complexity testing. Amylase BF Type BASIA Drain [facility] BASIA Drain Other / Unknown 03/03/2024 1 1:40 AM EDT 03/03/2024 11:50 AM EDT Narrative Resulting Agency Comment Spec In Lab Latonia Red MD BODY FLUIDS AND STOO LS ORDERABLES Performing Organization Address City/[facility]/ZIP Co de Phone Number [facility] [place] [address] * POCT Glucose (03/03/2024 8:08 AM EDT) Glucose, POC 166 65 - 199 mg/dL [facility] Comment: Supplemental ranges: <140 mg/dL before meals <180 mg/dL all other times of the day Blood 03/03/2024 8:08 AM EDT 03/03/2024 8:08 AM EDT Rudi Hernandez MD POINT OF CARE TEST O RDERABLES [facility] [place] [address] * POCT Glucose (03/03/2024 3:57 AM EDT) Glucose, POC 159 65 - 199 mg/dL [facility] Comment: Supplemental ranges: <140 mg/dL before meals <180 mg/dL all other times of the day Blood 03/03/2024 3:57 AM EDT 03/03/2024 3:57 AM EDT Rudi Hernandez MD POINT OF CARE TEST O RDERABLES Performing Organization Address City/[facility] Co de Phone Number [facility] [place] [address] * Creatinine, urine, random (03/03/2024 1:19 AM EDT) Creatinine, Urine 288 mg/dL [facility] Urine 03/03/2024 1:19 AM EDT 03/03/2024 1:28 AM EDT Narrative Resulting Agency Comment Spec In Lab Rudi Hernandez MD URINE ORDERABLES Performing Organization Address [facility] Co de Phone Number [facility] [place] [address] * Sodium, urine, random (03/03/2024 1:19 AM EDT) Sodium, Urine <20 mmol/L [facility] Urine 03/03/2024 1:19 AM EDT 03/03/2024 1:28 AM EDT Narrative Resulting Agency Comment Spec In Lab Rudi Hernandez MD URINE ORDERABLES Performing Organization Address City/[facility] Co de Phone Number [facility] [place] [address] * Green Tube HOLD (03/03/2024 1:04 AM EDT) Green Hold Sample in lab. [facility] Blood Venous Draw / Unknown 03/03/2024 1:04 AM EDT 03/03/2024 1:12 AM EDT Latonia Red MD CHEMISTRY ORDERABLES Performing Organization Address City/[facility] Co de Phone Number [facility] [place] [address] * (ABNORMAL) Differential, Automated (03/03/2024 1:04 AM EDT) Neutrophil % 85.5 % [facility] Neutrophil Absolute 13.27(H) 1.70 - 6.10 x10(3)/ L [facility] Lymph % 7.5 % [facility] Lymphocytes Abs 1.2 0.9 - 3.2 x10(3)/[facility] Monocyte % 6.0 % [facility] Monocyte Abs 0.9 0.3 - 0.9 x10(3)/[facility] Eos % 0.2 % [facility] Eosinophils Abs 0.0 0.0 - 0.4 x10(3)/[facility] Basophil % 0.2 % [facility] Baso Absolute 0.0 0.0 - 0.1 x10(3)/[facility] Immature Gran % 0.60 % [facility] Comment: Immature granulocytes(IG's)percentage and absolute count will include metamyelocytes, myelocytes, and promyelocytes. Blood smears from CBCs yielding IG's will be scanned manually for concordance. If this scan disagrees with the automated IG or if promyelocytes are noted, a manual differential will be performed. Immature Gran Absolute 0.10(H) 0.00 - 0.04 x10(3)/ L [facility] Blood 03/03/2024 1:04 AM EDT 03/03/2024 1:11 AM EDT Narrative Resulting Agency Comment Spec In Lab Kamryn Kim MD HEMATOLOGY ORDERA BLES [facility] [place] [address] * (ABNORMAL) Hemogram (03/03/2024 1:04 AM EDT) White Blood Cell 15.5(H) 4.0 - 9.5 x10(3)/[facility] Red Blood Cell 4.81 4.58 - 5.54 x10(6)/[facility] Hemoglobin 11.7(L) 13.7 - 16.5 g/dL [facility] Hematocrit 37.2(L) 40.5 - 48.5 % [facility] Mean Cell Volume 77.3(L) 82.9 - 93.1 fL [facility] Mean Cell Hemoglobin 24.3(L) 27.5 - 32.1 pg [facility] Mean Cell Hemoglobin Concentration 31.5(L) 32.0 - 35.7 g/dL [facility] Platelet 169 145 - 357 x10(3)/[facility] RDW Standard Deviation 43.7 36.0 - 45.0 [facility]ORY RDW coefficient of variation 15.5(H) 11.4 - 13.8 % [facility] Mean Platelet Volume 10.9 7.6 - 12.9 [facility] NRBC% auto 0.0 % [facility] NRBC Absolute 0.000 0.000 - 0.000 x10(3)/[facility] Blood 03/03/2024 1:04 AM EDT 03/03/2024 1:11 AM EDT Narrative Resulting Agency Comment Spec In Lab Kamryn Kim MD HEMATOLOGY ORDERA BLES [facility] [place] [address] * Lactate, whole blood, send to lab ([facility] [place] (03/03/2024 1:04 AM EDT) Lactate WB 1.5 0.5 - 2.2 mmol/L [facility] Blood 03/03/2024 1:04 AM EDT 03/03/2024 1:11 AM EDT Narrative Resulting Agency Comment Spec In Lab Rudi Hernandez MD CHEMISTRY ORDERABLES [facility] [place] [address] * (ABNORMAL) Phosphorus (03/03/2024 1:04 AM EDT) Phosphorus 2.2(L) 2.5 - 4.5 mg/dL [facility] Blood 03/03/2024 1:04 AM EDT 03/03/2024 1:11 AM EDT Narrative Resulting Agency Comment Spec In Lab Rudi Hernandez MD CHEMISTRY ORDERABLES Performing Organization Address [facility]/ZIP Co de Phone Number [facility] [place] [address] * Magnesium (03/03/2024 1:04 AM EDT) Magnesium 0.78 0.69 - 1.07 mmol/L [facility] Blood 03/03/2024 1:04 AM EDT 03/03/2024 1:11 AM EDT Narrative Resulting Agency Comment Spec In Lab Rudi Hernandez MD CHEMISTRY ORDERABLES Performing Organization Address City/[facility]/ZIP Co de Phone Number [facility] [place] [address] * (ABNORMAL) Comprehensive metabolic panel (non-fasting) (03/03/2024 1:04 AM EDT) Glucose 192 65 - 199 mg/dL [facility] Comment:Diabetes: >=200 mg/d L plus symptoms Blood Urea Nitrogen 16 10 - 20 mg/dL [facility] Creatinine 1.16 0.80 - 1.50 mg/dL [facility] Sodium 137 135 - 145 mmol/L [facility] Potassium 3.9 3.5 - 5.0 mmol/L [facility] Comment: result rechecked-RSG Please note: ??Patients with WBC >100,000 may have falsely elevated Potassium levels. ??For accurate Potassium quantification in these patients send serum separator tube (gold top) for subsequent determinations. ??Contact the Clinical Chemistry Laboratory if there are any questions. Chloride 101 98 - 107 mmol/L [facility] Carbon Dioxide 24 22 - 31 mmol/L [facility] Anion Gap 12 5 - 15 mmol/L [facility] Calcium 8.1(L) 8.5 - 10.5 mg/dL [facility] Protein, Total 5.3(L) 6.1 - 8.0 g/dL [facility] Albumin 2.9(L) 3.2 - 5.2 g/dL [facility] Aspartate Aminotransferase 64(H) 0 - 39 unit/L [facility] Alanine Aminotransferase 111(H) 0 - 55 unit/L [facility] Alkaline Phosphatase 83 40 - 130 unit/L [facility] Bilirubin, Total 0.6 0.2 - 1.3 mg/dL [facility] Est Glomerular Filtration Rate 77 >=60 mL/min/1. 73 m?? [facility] Comment: This patient's [...] and symptoms in addition to eGFR. Blood 03/03/2024 1:04 AM EDT 03/03/2024 1:11 AM EDT Narrative Resulting Agency Comment Spec In Lab Rudi Hernandez MD CHEMISTRY ORDERABLES Performing Organization Address [facility] Co de Phone Number [facility] [place] [address] * POCT Glucose (03/02/2024 10:59 PM EDT) Glucose, POC 181 65 - 199 mg/dL [facility] Comment: Supplemental ranges: <140 mg/dL before meals <180 mg/dL all other times of the day Blood 03/02/2024 10:5 9 PM EDT 03/02/2024 10:59 PM EDT Rudi Hernandez MD POINT OF CARE TEST O RDERABLES Performing Organization Address [facility] de Phone Number [facility] [place] [address] * XR Abdomen 1 view (Generic) (03/02/2024 9:54 PM EDT) Pathologist [facility] WORKSTATION ID [id number] [facility] Anatomical Region Laterality Modality Abdomen N/A Digital [...] who have questions please contact the health grounds caretaker that requested your imaging first. ? Electronically signed by: Maryan Lagos MD, [facility] ([phone]), at 03/02/2024 10:20 PM Narrative 03/02/2024 10:20 PM EDT EXAMINATION: XR [...] patients who have questions please contactthe health grounds caretaker that requested your imaging first. Electronically signed by: Maryan Lagos MD, [facility]([phone]), at 03/02/2024 10:20 PM Rudi Hernandez MD IMG DX ORDERABLES * POCT Glucose (03/02/2024 7:41 PM EDT) Glucose, POC 186 65 - 199 mg/dL [facility] Comment: Supplemental ranges: <140 mg/dL before meals <180 mg/dL all other times of the day Blood 03/02/2024 7:41 PM EDT 03/02/2024 7:41 PM EDT Rudi Hernandez MD POINT OF CARE TEST O RDERABLES [facility] [place] [address] * XR Abdomen 1 view (Generic) (03/02/2024 7:38 PM EDT) WORKSTATION ID [id number] RAD Anatomical Region Laterality Modality Abdomen N/A Digital Radiogra phy Impressions 03/02/2024 7:41 PM EDT Enteric tube terminates in the distal esophagus. Please advance. Thank you for letting us participate in the care of this patient. ??If you are a health care provider and have any questions regarding this report, please contact the number below. ??For patients who have questions please contact the health grounds caretaker that requested your imaging first. ? Narrative 03/02/2024 7:41 PM EDT EXAMINATION: XR ABDOMEN 1 VIEW (GENERIC) CLINICAL HISTORY: NGT retracted, ?in stomach TECHNIQUE: Single frontal view of the abdomen. One image. COMPARISON: Whole-body PET/CT 01/27/2024. FINDINGS: Enteric tube terminates in the distal esophagus. Tip of epidural catheter projects over T8 vertebrae. Cholecystectomy clips are noted. Multiple edd project over the left abdomen. Nonobstructive bowel gas pattern. Bibasilar atelectasis. Degenerative changes in the spine. Procedure Note Ana Christine MD - 03/02/2024 EXAMINATION: XR ABDOMEN 1 VIEW (GENERIC) CLINICAL HISTORY: NGT retracted, ?in stomach TECHNIQUE: Single frontal view of the abdomen. One image. COMPARISON: Whole-body PET/CT 01/27/2024. FINDINGS: Enteric tube terminates in the distal esophagus. Tip of epiduralcatheter projects over T8 vertebrae. Cholecystectomy clips are noted. Multiplestaples project over the left abdomen. Nonobstructive bowel gas pattern.Bibasilar atelectasis. Degenerative changes in the spine. IMPRESSION Enteric tube terminates in the distal esophagus. Please advance. Thank you for letting us participate in the care of this patient. If youare a health care provider and have any questions regarding this report,please contact the number below. For patients who have questions please contactthe health grounds caretaker that requested your imaging first. Rudi Hernandez MD IMG DX ORDERABLES * POCT Glucose (03/02/2024 4:00 PM EDT) Glucose, POC 179 65 - 199 mg/dL [facility] Comment: Supplemental ranges: <140 mg/dL before meals <180 mg/dL all other times of the day Blood 03/02/2024 4:00 PM EDT 03/02/2024 4:00 PM EDT Rudi Hernandez MD POINT OF CARE TEST O RDERABLES [facility] [place] [address] * POCT Glucose (03/02/2024 11:12 AM EDT) Glucose, POC 183 65 - 199 mg/dL [facility] Comment: Supplemental ranges: <140 mg/dL before meals <180 mg/dL all other times of the day Blood 03/02/2024 11:1 2 AM EDT 03/02/2024 11:12 AM EDT Rudi Hernandez MD POINT OF CARE TEST O RDERABLES Performing Organization Address City/[facility]/ZIP Co de Phone Number [facility] [place] [address] * POCT Glucose (03/02/2024 7:48 AM EDT) Glucose, POC 170 65 - 199 mg/dL [facility] Comment: Supplemental ranges: <140 mg/dL before meals <180 mg/dL all other times of the day Blood 03/02/2024 7:48 AM EDT 03/02/2024 7:48 AM EDT Rudi Hernandez MD POINT OF CARE TEST O RDERABLES Performing Organization Address [facility]/ZIP Co de Phone Number [facility] [place] [address] * (ABNORMAL) Aspartate Aminotransferase (03/02/2024 5:27 AM EDT) [facility] Aspartate Aminotransferase 89(H) 0 - 39 unit/L [facility] Blood 03/02/2024 5:27 AM EDT 03/02/2024 6:06 AM EDT Narrative Resulting Agency Comment Spec In Lab Rudi Hernandez MD CHEMISTRY ORDERABLES Performing Organization Address [facility]/ZIP Co de Phone Number [facility] [place] [address] * (ABNORMAL) Hemoglobin A1c (03/02/2024 4:30 AM EDT) Hemoglobin A1c 8.9(H) 4.3 - 5.6 % [facility] Comment: Reference Range: 4.3 - 5.6% [...] Mellitus, Diabetes Care 2013; 36: Suppl. 1, D41-89 Estimated Average Glucose 208 mg/dL [facility] Blood Venous Draw / Unknown 03/02/2024 4:30 AM EDT 03/02/2024 1:54 PM EDT Narrative Resulting Agency Comment Spec In Lab Munira Berry APRN CHEMISTRY ORDERABLES [facility] [place] [address] * (ABNORMAL) Differential, Automated (03/02/2024 4:30 AM EDT) Neutrophil % 84.4 % [facility] Neutrophil Absolute 10.79(H) 1.70 - 6.10 x10(3)/mc L [facility] Lymph % 9.7 % [facility] Lymphocytes Abs 1.2 0.9 - 3.2 x10(3)/mc L [facility] Monocyte % 5.1 % [facility] Monocyte Abs 0.6 0.3 - 0.9 x10(3)/mc L [facility] Eos % 0.1 % [facility] Eosinophils Abs 0.0 0.0 - 0.4 x10(3)/mc L [facility] Basophil % 0.2 % [facility] Baso Absolute 0.0 0.0 - 0.1 x10(3)/mc L [facility] Immature Gran % 0.50 % [facility] Comment: Immature granulocytes(IG's)percentage and absolute count will include metamyelocytes, myelocytes, and promyelocytes. Blood smears from CBCs yielding IG's will be scanned manually for concordance. If this scan disagrees with the automated IG or if promyelocytes are noted, a manual differential will be performed. Immature Gran Absolute 0.06(H) 0.00 - 0.04 x10(3)/ L [facility] Blood 03/02/2024 4:30 AM EDT 03/02/2024 4:36 AM EDT Narrative Resulting Agency Comment Spec In Lab Latonia Red MD HEMATOLOGY ORDERABLE S [facility] [place] [address] * (ABNORMAL) Hemogram (03/02/2024 4:30 AM EDT) White Blood Cell 12.8(H) 4.0 - 9.5 x10(3)/[facility] Red Blood Cell 5.41 4.58 - 5.54 x10(6)/[facility] Hemoglobin 13.3(L) 13.7 - 16.5 g/dL [facility] Hematocrit 41.9 40.5 - 48.5 % [facility] Mean Cell Volume 77.4(L) 82.9 - 93.1 [facility] Mean Cell Hemoglobin 24.6(L) 27.5 - 32.1 pg [facility] Mean Cell Hemoglobin Concentration 31.7(L) 32.0 - 35.7 g/dL [facility] Platelet 205 145 - 357 x10(3)/[facility] RDW Standard Deviation 41.8 36.0 - 45.0 [facility] RDW coefficient of variation 15.2(H) 11.4 - 13.8 % [facility] Mean Platelet Volume 11.2 7.6 - 12.9 [facility] NRBC% auto 0.0 % [facility] NRBC Absolute 0.000 0.000 - 0.000 x10(3)/ L [facility] Blood 03/02/2024 4:30 AM EDT 03/02/2024 4:36 AM EDT Narrative Resulting Agency Comment Spec In Lab Latonia Red MD HEMATOLOGY ORDERABLE S [facility] [place] [address] * (ABNORMAL) Comprehensive metabolic panel (non-fasting) (03/02/2024 4:30 AM EDT) Glucose 199 65 - 199 mg/dL [facility] Comment:Diabetes: >=200 mg/d L plus symptoms Blood Urea Nitrogen 11 10 - 20 mg/dL [facility] Creatinine 0.80 0.80 - 1.50 mg/dL [facility] Sodium 135 135 - 145 mmol/L [facility] Potassium 5.0 3.5 - 5.0 mmol/L [facility] Comment: Please note: ??Patients with WBC >100,000 may have falsely elevated Potassium levels. ??For accurate Potassium quantification in these patients send serum separator tube (gold top) for subsequent determinations. ??Contact the Clinical Chemistry Laboratory if there are any questions. Chloride 103 98 - 107 mmol/L [facility] Carbon Dioxide 24 22 - 31 mmol/L [facility] Anion Gap 8 5 - 15 mmol/L [facility] Calcium 7.9(L) 8.5 - 10.5 mg/dL [facility] Protein, Total 5.4(L) 6.1 - 8.0 g/dL [facility] Albumin 2.8(L) 3.2 - 5.2 g/dL [facility] Aspartate Aminotransferase Not Perf 0 - 39 [facility] Comment: Unable to quantitate due to sample hemolysis. ??Sample redraw suggested. Called by: , Read back by: Angelita Ingram, Date/Time:03/02/24 05:18. Alanine Aminotransferase 128(H) 0 - 55 unit/L [facility] Alkaline Phosphatase 97 40 - 130 unit/L [facility] Bilirubin, Total 0.9 0.2 - 1.3 mg/dL [facility] Est Glomerular Filtration Rate 108 >=60 mL/min/1. 73 m?? [facility] Comment: This patient's [...] and symptoms in addition to eGFR. Blood 03/02/2024 4:30 AM EDT 03/02/2024 4:36 AM EDT Narrative Resulting Agency Comment Spec In Lab Rudi Hernandez MD CHEMISTRY ORDERABLES Performing Organization Address City/[facility]/ZIP Co de Phone Number [facility] [place] [address] * POCT Glucose (03/02/2024 4:26 AM EDT) Glucose, POC 172 65 - 199 mg/dL [facility] Comment: Supplemental ranges: <140 mg/dL before meals <180 mg/dL all other times of the day Blood 03/02/2024 4:26 AM EDT 03/02/2024 4:26 AM EDT Rudi Hernandez MD POINT OF CARE TEST O RDERABLES Performing Organization Address City/[facility]/ZIP Co de Phone Number [facility] [place] [address] * POCT Glucose (03/02/2024 12:12 AM EDT) Glucose, POC 190 65 - 199 mg/dL [facility] Comment: Supplemental ranges: <140 mg/dL before meals <180 mg/dL all other times of the day Blood 03/02/2024 12:1 2 AM EDT 03/02/2024 12:12 AM EDT Rudi Hernandez MD POINT OF CARE TEST O RDERAVANNESSA Performing Organization Address [facility] Co de Phone Number [facility] [place] [address] * (ABNORMAL) POCT Glucose (03/01/2024 7:55 PM EDT) [facility] Glucose, POC 233(H) 65 - 199 mg/dL [facility] Comment: Supplemental ranges: <140 mg/dL before meals <180 mg/dL all other times of the day Blood 03/01/2024 7:55 PM EDT 03/01/2024 7:55 PM EDT Rudi Hernandez MD POINT OF CARE TEST O ELKIN Performing Organization Address [facility] Co de Phone Number [facility] [place] [address] * (ABNORMAL) Differential, Automated (03/01/2024 7:02 PM EDT) [facility] Neutrophil % 91.5 % [facility] Neutrophil Absolute 14.04(H) 1.70 - 6.10 x10(3)/mc L [facility] Lymph % 3.7 % [facility] Lymphocytes Abs 0.6(L) 0.9 - 3.2 x10(3)/mc L [facility] Monocyte % 4.2 % [facility] Monocyte Abs 0.6 0.3 - 0.9 x10(3)/mc L [facility] Eos % 0.0 % [facility] Eosinophils Abs 0.0 0.0 - 0.4 x10(3)/mc L [facility] Basophil % 0.1 % [facility] Baso Absolute 0.0 0.0 - 0.1 x10(3)/ L [facility] Immature Gran % 0.50 % [facility] Comment: Immature granulocytes(IG's)percentage and absolute count will include metamyelocytes, myelocytes, and promyelocytes. Blood smears from CBCs yielding IG's will be scanned manually for concordance. If this scan disagrees with the automated IG or if promyelocytes are noted, a manual differential will be performed. Immature Gran Absolute 0.07(H) 0.00 - 0.04 x10(3)/ L [facility] Blood 03/01/2024 7:02 PM EDT 03/01/2024 7:06 PM EDT Narrative Resulting Agency Comment Spec In Lab Latonia Red MD HEMATOLOGY ORDERABLE S [facility] [place] [address] * (ABNORMAL) Hemogram (03/01/2024 7:02 PM EDT) White Blood Cell 15.3(H) 4.0 - 9.5 x10(3)/[facility] Red Blood Cell 5.64(H) 4.58 - 5.54 x10(6)/ L [facility] Hemoglobin 14.1 13.7 - 16.5 g/dL [facility] Hematocrit 43.4 40.5 - 48.5 % [facility] Mean Cell Volume 77.0(L) 82.9 - 93.1 fL [facility] Mean Cell Hemoglobin 25.0(L) 27.5 - 32.1 pg [facility] Mean Cell Hemoglobin Concentration 32.5 32.0 - 35.7 g/dL [facility] Platelet 218 145 - 357 x10(3)/[facility] RDW Standard Deviation 41.1 36.0 - 45.0 fL [facility] RDW coefficient of variation 14.8(H) 11.4 - 13.8 % [facility] Mean Platelet Volume 10.5 7.6 - 12.9 fL [facility] NRBC% auto 0.0 % [facility] NRBC Absolute 0.000 0.000 - 0.000 x10(3)/mc L [facility] Blood 03/01/2024 7:02 PM EDT 03/01/2024 7:06 PM EDT Narrative Resulting Agency Comment Spec In Lab Latonia Red MD HEMATOLOGY ORDERABLE S [facility] [place] [address] * (ABNORMAL) Comprehensive metabolic panel (non-fasting) (03/01/2024 7:02 PM EDT) Glucose 216(H) 65 - 199 mg/dL [facility] Comment:Diabetes: >=200 mg/d L plus symptoms Blood Urea Nitrogen 9(L) 10 - 20 mg/dL [facility] Creatinine 0.80 0.80 - 1.50 mg/dL [facility] Sodium 135 135 - 145 mmol/L [facility] Potassium 4.9 3.5 - 5.0 mmol/L [facility] Comment: Please note: ??Patients with WBC >100,000 may have falsely elevated Potassium levels. ??For accurate Potassium quantification in these patients send serum separator tube (gold top) for subsequent determinations. ??Contact the Clinical Chemistry Laboratory if there are any questions. Chloride 103 98 - 107 mmol/L [facility] Carbon Dioxide 22 22 - 31 mmol/L [facility] Anion Gap 10 5 - 15 mmol/L [facility] Calcium 8.2(L) 8.5 - 10.5 mg/dL [facility] Protein, Total 5.7(L) 6.1 - 8.0 g/dL [facility] Albumin 3.3 3.2 - 5.2 g/dL [facility] Aspartate Aminotransferase 182(H) 0 - 39 unit/L [facility] Alanine Aminotransferase 148(H) 0 - 55 unit/L [facility] Alkaline Phosphatase 106 40 - 130 unit/L [facility] Bilirubin, Total 2.2(H) 0.2 - 1.3 mg/dL [facility] Est Glomerular Filtration Rate 108 >=60 mL/min/1. 73 m?? [facility] Comment: This patient's [...] symptoms in addition to eGFR. Blood 03/01/2024 7:02 PM EDT 03/01/2024 7:06 PM EDT Narrative Resulting Agency Comment Spec In Lab Rudi Hernandez MD CHEMISTRY ORDERABLES Performing Organization Address City/[facility]/ZIP Co de Phone Number [facility] [place] [address] * POCT Glucose (03/01/2024 6:44 PM EDT) Glucose, POC 156 65 - 199 mg/dL [facility] Comment: Supplemental ranges: <140 mg/dL before meals <180 mg/dL all other times of the day Blood 03/01/2024 6:44 PM EDT 03/01/2024 6:44 PM EDT Rudi Hernandez MD POINT OF CARE TEST O RDERABLES Performing Organization Address City/[facility]/ZIP Co de Phone Number [facility] [place] [address] * (ABNORMAL) BLOOD GAS 2 ARTERIAL (03/01/2024 5:49 PM EDT) pH, Arterial 7.40 7.35 - 7.45 [facility] PCO2, Arterial 35 35 - 45 mmHg [facility] PO2, Arterial 188(H) 85 - 104 mmHg [facility] Bicarbonate, Arterial 21.3 20.0 - 26.0 mmol/L [facility] Base Excess, Arterial -3.6(L) -3.0 - 3.0 mmol/L [facility] Hgb Blood Gas 14.6 13.7 - 16.5 g/dL [facility] Oxyhemoglobin, Arterial 97.8(H) 94.0 - 97.0 % [facility] Carboxyhemoglob in, Arterial 1.3 % [facility] Comment: Nonsmokers: 0.5-1.5% COHB Smokers: Variable, but usually less than 10% Toxic: 20-30% COHB Lethal: Greater than 60% COHB Methemoglobin, Arterial 0.3 <=1.5 % [facility] Na Whole Blood 131(L) 135 - 145 mmol/L [facility] K Whole Blood 4.3 3.5 - 5.0 mmol/L [facility] Comment: Please note: Patients with WBC >100,000 may have falsely elevated Potassium levels. Contact the Clinical Chemistry Laboratory if there are any questions. ICa Whole Blood 1.12(L) 1.15 - 1.33 mmol/L [facility] Comment: Note: ??Total bilirubin higher than 20 mg/dL may lead to falsely low ionized calcium. CL Whole Blood 102 98 - 107 mmol/L [facility] Gluc Whole Bld 162 65 - 199 mg/dL [facility] Comment:Diabetes: >=200 mg/d L plus symptoms. Lactate WB 2.2 0.5 - 2.2 mmol/L [facility] Blood 03/01/2024 5:49 PM EDT 03/01/2024 5:49 PM EDT Rudi Hernandez MD POINT OF CARE TEST O RDERABLES Performing Organization Address City/[facility]/ZIP Co de Phone Number [facility] [place] [address] * POCT Glucose (03/01/2024 5:02 PM EDT) Glucose, POC 125 65 - 199 mg/dL [facility] Comment: Supplemental ranges: <140 mg/dL before meals <180 mg/dL all other times of the day Blood 03/01/2024 5:02 PM EDT 03/01/2024 5:02 PM EDT Rudi Hernandez MD POINT OF CARE TEST O ELKIN Performing Organization Address [facility] Co de Phone Number [facility] [place] [address] * POCT Glucose (03/01/2024 4:07 PM EDT) Glucose, POC 125 65 - 199 mg/dL [facility] Comment: Supplemental ranges: <140 mg/dL before meals <180 mg/dL all other times of the day Blood 03/01/2024 4:07 PM EDT 03/01/2024 4:07 PM EDT Rudi Hernandez MD POINT OF CARE TEST O RDERAVANNESSA Performing Organization Address [facility]/ZIP Co de Phone Number [facility] [place] [address] * Specimen to Pathology (03/01/2024 3:40 PM EDT) AP Specimen 03/01/2024 3:40 PM EDT 03/01/2024 3:40 PM EDT Narrative [facility] - 03/01/2024 3:40 PM EDT Specimen requisition ordered. ??Separate Pathology report to follow Rudi Hernandez MD PATHOLOGY/CYTOLOGY O ELKIN [facility] [place] [address] * POCT Glucose (03/01/2024 2:58 PM EDT) Glucose, POC 150 65 - 199 mg/dL [facility] Comment: Supplemental ranges: <140 mg/dL before meals <180 mg/dL all other times of the day Blood 03/01/2024 2:58 PM EDT 03/01/2024 2:58 PM EDT Rudi Hernandez MD POINT OF CARE TEST O RDERABLES [facility] [place] [address] * (ABNORMAL) BLOOD GAS 2 ARTERIAL (03/01/2024 2:58 PM EDT) [facility] pH, Arterial 7.41 7.35 - 7.45 [facility] PCO2, Arterial 39 35 - 45 mmHg [facility] PO2, Arterial 204(H) 85 - 104 mmHg [facility] Bicarbonate, Arterial 23.9 20.0 - 26.0 mmol/L [facility] Base Excess, Arterial -0.8 -3.0 - 3.0 mmol/L [facility] Hgb Blood Gas 14.5 13.7 - 16.5 g/dL [facility] Oxyhemoglobin, Arterial 98.0(H) 94.0 - 97.0 % [facility] Carboxyhemoglob in, Arterial 1.2 % [facility] Comment: Nonsmokers: 0.5-1.5% COHB Smokers: Variable, but usually less than 10% Toxic: 20-30% COHB Lethal: Greater than 60% COHB Methemoglobin, Arterial 0.3 <=1.5 % [facility] Na Whole Blood 135 135 - 145 mmol/L [facility] K Whole Blood 4.0 3.5 - 5.0 mmol/L [facility] Comment: Please note: Patients with WBC >100,000 may have falsely elevated Potassium levels. Contact the Clinical Chemistry Laboratory if there are any questions. ICa Whole Blood 1.10(L) 1.15 - 1.33 mmol/L [facility] Comment: Note: ??Total bilirubin higher than 20 mg/dL may lead to falsely low ionized calcium. CL Whole Blood 104 98 - 107 mmol/L [facility] Gluc Whole Bld 175 65 - 199 mg/dL [facility] Comment:Diabetes: >=200 mg/d L plus symptoms. Lactate WB 2.1 0.5 - 2.2 mmol/L [facility] Blood 03/01/2024 2:58 PM EDT 03/01/2024 2:58 PM EDT Rudi Hernandez MD POINT OF CARE TEST O ELKIN Performing Organization Address [facility] Co de Phone Number [facility] [place] [address] * POCT Glucose (03/01/2024 2:02 PM EDT) Glucose, POC 147 65 - 199 mg/dL [facility] Comment: Supplemental ranges: <140 mg/dL before meals <180 mg/dL all other times of the day Blood 03/01/2024 2:02 PM EDT 03/01/2024 2:02 PM EDT Rudi Hernandez MD POINT OF CARE TEST O ELKIN [facility] [place] [address] * POCT Glucose (03/01/2024 1:00 PM EDT) Glucose, POC 138 65 - 199 mg/dL [facility] Comment: Supplemental ranges: <140 mg/dL before meals <180 mg/dL all other times of the day Blood 03/01/2024 1:00 PM EDT 03/01/2024 1:00 PM EDT Rudi Hernandez MD POINT OF CARE TEST O RDERABLES Performing Organization Address [facility]/[place] [address] * Anaerobic Culture (03/01/2024 1:00 PM EDT) Anaerobic Culture No anaerobic organisms isolated [facility] Fluid 03/01/2024 1:00 PM EDT 03/01/2024 4:19 PM EDT Comment:Bile duct culture Narrative Resulting Agency Comment Spec In Lab Rudi Hernandez MD MICROBIOLOGY - GENER AL ORDERABLES Performing Organization Address [facility] [place] [address] * Body Fluid Culture, Aerobic (03/01/2024 1:00 PM EDT) Body Fluid Culture No growth [facility] Gram Stain Cytocentrifuge Gram Stain performed No Neutrophils seen. No microorganisms seen. [facility] Fluid 03/01/2024 1:00 PM EDT 03/01/2024 4:19 PM EDT Comment:Bile duct culture Narrative Resulting Agency Comment Spec In Lab Rudi Hernandez MD MICROBIOLOGY - GENER AL ORDERABLES Performing Organization Address [facility] Co de Phone Number [facility] [place] [address] * Specimen to Pathology (03/01/2024 12:50 PM EDT) AP Specimen 03/01/2024 12:5 0 PM EDT 03/01/2024 12:50 PM EDT Narrative [facility] - 03/01/2024 12:50 PM EDT Specimen requisition ordered. ??Separate Pathology report to follow Rudi Hernandez MD PATHOLOGY/CYTOLOGY O RDERABLES Performing Organization Address City/[facility]/ZIP Co de Phone Number [facility] [place] [address] * POCT Glucose (03/01/2024 12:01 PM EDT) Glucose, POC 153 65 - 199 mg/dL [facility] Comment: Supplemental ranges: <140 mg/dL before meals <180 mg/dL all other times of the day Blood 03/01/2024 12:0 1 PM EDT 03/01/2024 12:01 PM EDT Rudi Hernandez MD POINT OF CARE TEST O ELKIN [facility] [place] [address] * Specimen to Pathology (03/01/2024 11:07 AM EDT) AP Specimen 03/01/2024 11:0 7 AM EDT 03/01/2024 11:07 AM EDT Narrative [facility] - 03/01/2024 11:07 AM EDT Specimen requisition ordered. ??Separate Pathology report to follow Rudi Hernandez MD PATHOLOGY/CYTOLOGY O RDLIAT [facility] [place] [address] * (ABNORMAL) BLOOD GAS 2 ARTERIAL (03/01/2024 10:55 AM EDT) pH, Arterial 7.43 7.35 - 7.45 [facility] PCO2, Arterial 35 35 - 45 mmHg [facility] PO2, Arterial 182(H) 85 - 104 mmHg [facility] Bicarbonate, Arterial 22.9 20.0 - 26.0 mmol/L [facility] Base Excess, Arterial -1.4 -3.0 - 3.0 mmol/L [facility] Hgb Blood Gas 14.5 13.7 - 16.5 g/dL [facility] Oxyhemoglobin, Arterial 98.4(H) 94.0 - 97.0 % [facility] Carboxyhemoglob in, Arterial 0.5 % [facility] Comment: Nonsmokers: 0.5-1.5% COHB Smokers: Variable, but usually less than 10% Toxic: 20-30% COHB Lethal: Greater than 60% COHB Methemoglobin, Arterial 0.3 <=1.5 % [facility] Na Whole Blood 135 135 - 145 mmol/L [facility] K Whole Blood 4.1 3.5 - 5.0 mmol/L [facility] Comment: Please note: Patients with WBC >100,000 may have falsely elevated Potassium levels. Contact the Clinical Chemistry Laboratory if there are any questions. ICa Whole Blood 1.12(L) 1.15 - 1.33 mmol/L [facility] Comment: Note: ??Total bilirubin higher than 20 mg/dL may lead to falsely low ionized calcium. CL Whole Blood 102 98 - 107 mmol/L [facility] Gluc Whole Bld 198 65 - 199 mg/dL [facility] Comment:Diabetes: >=200 mg/d L plus symptoms. Lactate WB 2.0 0.5 - 2.2 mmol/L [facility] Blood 03/01/2024 10:5 5 AM EDT 03/01/2024 10:55 AM EDT Rudi Hernandez MD POINT OF CARE TEST O RDERABLES Performing Organization Address City/State/[facility] Co de Phone Number [facility] [place] [address] * Surgical Pathology Report (03/01/2024 10:49 AM EDT) Final Diagnosis [id number] ? Location: [id number]; 0404; B The signing [...] node, negative for malignancy Electronically signed by: ?Luis Atkinson MD Verified: ??03/10/2024 16:41 ??Pathologist Performed at: ??-[facility] Dept. of Pathology, [place] [address] Chair Inspector And Leveler: Lee Sutton MD, AP, ??CLIA Certificate: [id number] SYNOPTIC Specimen ? Procedure: ??Pancreaticoduodene ctomy (Whipple [...] Category: ??pT3 ? pN Category: ??pN1 ? [facility] 2021 Q1 Release ADDITIONAL STUDIES Whole slide [...] x 0.9 x 0.6 cm. Tissue Description: Palumbo-pink lymph nodes Sections/Processing: Entirely submitted in 3 [...] 2.3 x 2.1 x 1.1 cm ??Description: Red-palumbo, ulcerated lesion with raised borders ??Relationship to [...] 6.6 x 6.3 x 2.2 cm Parenchyma: Palumbo-pink, rubbery and lobulated Ducts: The common bile duct ranges from 0.1 to 0.5 cm in diameter. ??The pancreatic duct averages 0.2 cm in diameter STOMACH ??Greater Curvature: 9.3 cm ??Lesser Curvature: 4.2 cm ??Serosa: Palumbo-pink, glistening ??Mucosa: Palumbo-pink with normal rugal folds DUODENUM ??Length/Diameter: 35.5 x 2.8 cm ??Serosa: Red-palumbo, smooth and glistening ??Mucosa: The mucosa surrounding the ampulla of Vater has irregular appearing folds. The remaining mucosa is palumbo-pink with normal folds ??Ampulla of Vater: Located 3 cm from the lesion and occurs at the confluence of the pancreatic and common bile ducts. OTHER Lymph nodes: Multiple lymph nodes are identified. Ink Designation: The posterior retroperitoneal margin is inked black. The anterior serosal surface is inked red. . SPECIMEN PROCESSING Sections/Processing: Integration Solution Architect sections in 41 cassettes as follows: ?B1: [...] 1.4 x 1.0 x 0.7 cm. Sections/Processing: Integration Solution Architect sections to include the entire lymph node are submitted in 1 cassettes as follows: ?C1: ??Single quadrisected lymph node D - Labeled/Fixative: Common hepatic artery lymph node #2, fresh. Quantity/Size: Single, 1.2 x 1.2 x 0.7 cm. Tissue Description: Palumbo-pink lymph node with minimal attached adipose tissue Sections/Processing: Quadrisected and entirely submitted in 2 cassettes labeled D1-D2. ??jnr 03/10/2024 4:41 PM EDT [facility] LYMPH NODE SPECIMEN / Unknown 03/01/2024 10:49 AM EDT 03/01/2024 10:49 AM EDT PANCREATIC STRUCTURE / Unknown 03/01/2024 10:49 AM EDT 03/01/2024 10:49 AM EDT LYMPH NODE SPECIMEN / Unknown 03/01/2024 10:49 AM EDT 03/01/2024 10:49 AM EDT LYMPH NODE SPECIMEN / Unknown 03/01/2024 10:49 AM EDT 03/01/2024 10:49 AM EDT Rudi Hernandez MD PATHOLOGY/CYTOLOGY O RDERABLES Performing Organization Address City/[facility]/ZIP Co de Phone Number [facility] [place] [address] * Specimen to Pathology (03/01/2024 10:49 AM EDT) AP Specimen 03/01/2024 10:4 9 AM EDT 03/01/2024 10:49 AM EDT Narrative [facility] - 03/01/2024 10:49 AM EDT Specimen requisition ordered. ??Separate Pathology report to follow Rudi Hernandez MD PATHOLOGY/CYTOLOGY O RDLIAT Performing Organization Address [facility]/ZIP Co de Phone Number [facility] [place] [address] * POCT Glucose (03/01/2024 9:59 AM EDT) Glucose, POC 178 65 - 199 mg/dL [facility] Comment: Supplemental ranges: <140 mg/dL before meals <180 mg/dL all other times of the day Blood 03/01/2024 9:59 AM EDT 03/01/2024 9:59 AM EDT Rudi Hernandez MD POINT OF CARE TEST O RDERABLES Performing Organization Address City/[facility] Co de Phone Number [facility] [place] [address] * Type and Screen Validity (03/01/2024 9:31 AM EDT) T&S only valid at [facility] Comment:This Type and Screen result is only valid at the [facility] Blood 03/01/2024 9:31 AM EDT 03/01/2024 9:31 AM EDT Narrative Resulting Agency Comment Spec In Lab Rudi Hernandez MD BLOOD BANK LAB ORDER DEDRA [facility] [place] [address] * ABORH Recheck Status (03/01/2024 9:31 AM EDT) ABORH Recheck Order Order Placed [facility] ABORH Type Recheck Completed [facility] Blood 03/01/2024 9:31 AM EDT 03/01/2024 9:31 AM EDT Narrative Resulting Agency Comment Spec In Lab Rudi Hernandez MD BLOOD BANK LAB ORDER DEDRA Performing Organization Address City/[facility]/ZIP Co de Phone Number [facility] [place] [address] * Type and screen ([facility] [place]P/FABIOLA) (03/01/2024 9:31 AM EDT) ABORH Type A POSITIVE [facility] Patient BB History Not Found [facility] Expires at [id number] on: 03/04/2024 [facility] Ab Screen Interp Negative [facility] Blood 03/01/2024 9:31 AM EDT 03/01/2024 9:31 AM EDT Narrative [facility] - 03/01/2024 9:31 AM EDT This Type and Screen result is only valid at the [facility] Resulting Agency Comment Spec In Lab Rudi Hernandez MD BLOOD BANK LAB ORDER DEDRA [facility] [place] [address] * (ABNORMAL) POCT Glucose (03/01/2024 9:14 AM EDT) Glucose, POC 211(H) 65 - 199 mg/dL [facility] Comment: Supplemental ranges: <140 mg/dL before meals <180 mg/dL all other times of the day Blood 03/01/2024 9:14 AM EDT 03/01/2024 9:14 AM EDT Rudi Hernandez MD POINT OF CARE TEST O ELKIN [facility] [place] [address] * (ABNORMAL) BLOOD GAS 2 ARTERIAL (03/01/2024 8:39 AM EDT) Pathologist [facility] pH, Arterial 7.38 7.35 - 7.45 [facility] PCO2, Arterial 37 35 - 45 mmHg [facility] PO2, Arterial 223(H) 85 - 104 mmHg [facility] Bicarbonate, Arterial 21.8 20.0 - 26.0 mmol/L [facility] Base Excess, Arterial -3.3(L) -3.0 - 3.0 mmol/L [facility] Hgb Blood Gas 13.3(L) 13.7 - 16.5 g/dL [facility] Oxyhemoglobin, Arterial 98.4(H) 94.0 - 97.0 % [facility] Carboxyhemoglob in, Arterial 0.9 % [facility] Comment: Nonsmokers: 0.5-1.5% COHB Smokers: Variable, but usually less than 10% Toxic: 20-30% COHB Lethal: Greater than 60% COHB Methemoglobin, Arterial 0.3 <=1.5 % [facility] Na Whole Blood 131(L) 135 - 145 mmol/L [facility] K Whole Blood 3.7 3.5 - 5.0 mmol/L [facility] Comment: Please note: Patients with WBC >100,000 may have falsely elevated Potassium levels. Contact the Clinical Chemistry Laboratory if there are any questions. ICa Whole Blood 1.10(L) 1.15 - 1.33 mmol/L [facility] Comment: Note: ??Total bilirubin higher than 20 mg/dL may lead to falsely low ionized calcium. CL Whole Blood 101 98 - 107 mmol/L [facility] Gluc Whole Bld 250(H) 65 - 199 mg/dL [facility] Comment:Diabetes: >=200 mg/d L plus symptoms. Lactate WB 1.1 0.5 - 2.2 mmol/L [facility] Blood 03/01/2024 8:39 AM EDT 03/01/2024 8:39 AM EDT Rudi Hernandez MD POINT OF CARE TEST O RDERABLES [facility] [place] [id number] * XR Fluoro No Rad <1Hr - OR Use (03/01/2024 7:45 AM EDT) Narrative Dicom, Auditing User - 03/01/2024 7:45 AM EDT This exam is auto-finalizing. No interpretation was done. Shyla Bird MD IMG FLUORO BENJI IVEY * (ABNORMAL) Creatinine (03/01/2024 7:04 AM EDT) Creatinine 0.77(L) 0.80 - 1.50 mg/dL [facility] Est Glomerular Filtration Rate 110 >=60 mL/min/1. 73 m?? [facility] Comment: This patient's [...] Hernandez MD CHEMISTRY ORDERABLES Performing Organization Address [facility] Co de Phone Number [facility] [place] [address] * (ABNORMAL) POCT Glucose (03/01/2024 7:03 AM EDT) Glucose, POC 207(H) 65 - 199 mg/dL [facility] Comment: Supplemental ranges: <140 mg/dL before meals <180 mg/dL all other times of the day Blood 03/01/2024 7:03 AM EDT 03/01/2024 7:03 AM EDT Rudi Hernandez MD POINT OF CARE TEST O RDERABLES Performing Organization Address 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 When ordered for pain, acetaminophen should be given even when other ordered pain medications are indicated., Routine, Is ketorolac (Toradol) IV contraindicated? No, Can this patient tolerate oral medications or suppositories? No Given 03/02/2024 11:17 AM EDT 1,000 mg 400 mL/hr Given 03/02/2024 6:03 AM EDT 1,000 mg 400 mL/hr Given 03/02/2024 1:05 AM EDT 1,000 mg 400 mL/hr acetaminophen (Ofirmev) (1,000 mg/100 mL) infusion 1,000 mg 1,000 mg, Intravenous, at 400 mL/hr, Administer over 15 Minutes, EVERY 8 HOURS SCHEDULED, 3 doses, First dose on Fri03/02/24 at 1900, Last dose on Fri03/03/24 at 1100, Maximum dose of acetaminophen is 4,000 mg from all sources in 24 hours. When ordered for pain, acetaminophen should be given even when other ordered pain medications are indicated., Routine, Is ketorolac (Toradol) IV contraindicated? Yes, Can this patient tolerate oral medications or suppositories? No Given 03/03/2024 11:03 AM EDT 1,000 mg 400 mL/hr Given 03/03/2024 3:58 AM EDT 1,000 mg 400 mL/hr Given 03/02/2024 6:34 PM EDT 1,000 mg 400 mL/hr acetaminophen (Tylenol) tablet 975 mg 975 mg, Oral, EVERY 6 HOURS SCHEDULED, First dose on Aline 03/04/24 at 1315, Until Discontinued, Maximum dose of acetaminophen is 4,000 mg from all sources in 24 hours. When ordered for pain, acetaminophen should be given even when other ordered pain medications are indicated., Routine Given 03/08/2024 11:56 AM EDT 975 mg Given 03/08/2024 5:14 AM EDT 975 mg Given 03/07/2024 11:49 PM EDT 975 mg albumin (human) 5% 250 mL intravenous solution 12.5 g, Intravenous, EVERY 30 MIN, 1 dose, First dose on Fri03/02/24 at 1845, 1 bottle (unit) = 12.5 grams / 250 mL (Total Dose = 12.5 grams = 1 bottle), Routine New Bag 03/02/2024 5:58 PM EDT 12.5 g 500 mL/hr albumin (human) 5% 250 mL intravenous solution 12.5 g, Intravenous, EVERY 30 MIN, 1 dose, First dose (after last reorder) on Fri03/03/24 at 0130, 1 bottle (unit) = 12.5 grams / 250 mL (Total Dose = 12.5 grams = 1 bottle), Routine New Bag 03/03/2024 1:03 AM EDT 12.5 g albumin (human) 5% 250 mL intravenous solution 12.5 g, Intravenous, EVERY 30 MIN, 1 dose, First dose (after last reorder) on Fri03/03/24 at 0915, 1 bottle (unit) = 12.5 grams / 250 mL (Total Dose = 12.5 grams = 1 bottle), Routine New Bag 03/03/2024 8:47 AM EDT 12.5 g 500 mL/hr amLODIPine (Norvasc) tablet 10 mg 10 mg, Oral, DAILY, First dose on Fri03/05/24 at 0900, Until Discontinued, Routine Given 03/08/2024 8:32 AM EDT 10 mg Given 03/07/2024 9:05 AM EDT 10 mg Given 03/06/2024 8:40 AM EDT 10 mg bisacodyL (Dulcolax) suppository 10 mg 10 mg, Rectal, DAILY PRN, Starting on Fri03/05/24 at 0718, Until Fri03/08/24 at 1701, Constipation, Routine bisacodyL (Dulcolax) suppository 10 mg 10 mg, Rectal, ONCE, 1 dose, On Fri03/06/24 at 0930, Routine Given 03/06/2024 12:09 PM EDT 10 mg citalopram (CeleXA) tablet 10 mg 10 mg, Oral, DAILY, First dose on Fri03/01/24 at 1945, Until Discontinued, Routine Given 03/06/2024 8:40 AM EDT 10 mg Given 03/05/2024 8:32 AM EDT 10 mg Given 03/04/2024 8:17 AM EDT 10 mg citalopram (CeleXA) tablet 40 mg 40 mg, Oral, DAILY, First dose (after last modification) on Fri03/07/24 at 0900, Until Discontinued, Routine Given 03/08/2024 8:32 AM EDT 40 mg Given 03/07/2024 9:05 AM EDT 40 mg dextrose 10% infusion 250 mL, at 1,000 mL/hr, Intravenous, EVERY 15 MIN PRN, Starting on Fri03/01/24 at 1924, Until Fri03/08/24 at 1701, For BG 50-70 mg/dL: Oral treatment preferred: [...] insulin orders before administering the next dose. dextrose 5% and sodium chloride 0.45% with potassium chloride 20 mEq infusion 100 mL/hr, Intravenous, CONTINUOUS, Starting on Fri03/03/24 at 1500, Until Fri03/04/24 at 0541 New Bag 03/03/2024 10:07 PM EDT 100 mL/hr 100 mL/hr New Bag 03/03/2024 2:24 PM EDT 100 mL/hr 100 mL/hr dextrose 5% and sodium chloride 0.45% with potassium chloride 20 mEq infusion 50 mL/hr, Intravenous, CONTINUOUS, Starting on Fri03/04/24 at 0915, Until Fri03/05/24 at 0719 New Bag 03/05/2024 5:11 AM EDT 50 mL/hr 50 mL /hr Rate/Dose Change 03/04/2024 9:18 AM EDT 50 mL/hr 50 mL/h r New Bag 03/04/2024 9:02 AM EDT 100 mL/hr 100 mL/hr enoxaparin (Lovenox) (40 mg/0.4 mL) subcutaneous injection 40 mg 40 mg, Subcutaneous, NIGHTLY, First dose on Fri03/01/24 at 2100, Until Discontinued, Routine Given 03/07/2024 8:37 PM EDT 40 mg Given 03/06/2024 10:00 PM EDT 40 mg Given 03/05/2024 8:02 PM EDT 40 mg fentaNYL (PF) (50 mcg/mL) injection 12.5-50 mcg 12.5-50 mcg, Intravenous, EVERY 5 MIN PRN, Starting on Fri03/01/24 at 0616, Until Fri03/01/24 at 0731, Pain, epidural sedation, Starting dose 50mcg (reduce dose to 25mcg if history of sedation sensitivity). Titration dose 25-50mcg IV to maintain procedural pain less than 2 per pain scale. Maximum dose 50mcg/dose, 400mcg/hr., Routine Given 03/01/2024 7:21 AM EDT 50 mcg Given 03/01/2024 7:18 AM EDT 50 mcg furosemide (Lasix) (10 mg/mL) injection 20 mg 20 mg, Intravenous, ONCE, 1 dose, On Fri03/03/24 at 1245 Given 03/03/2024 12:27 PM EDT 20 mg furosemide (Lasix) tablet 40 mg 40 mg, Oral, 2 TIMES DAILY, First dose on Aline 03/04/24 at 0915, Until Discontinued, Routine Given 03/08/2024 8:32 AM EDT 40 mg Given 03/07/2024 4:43 PM EDT 40 mg Given 03/07/2024 9:05 AM EDT 40 mg glucagon (Glucagen) (1 mg/mL) injection solution 1 mg 1 mg, Intramuscular, EVERY 15 MIN PRN, Starting on Fri03/01/24 at 1924, Until Fri03/08/24 at 1701, Low blood sugar, For BG 50-70 mg/dL: [...] Buccal, EVERY 15 MIN PRN, Starting on Fri03/01/24 at 1924, Until Fri03/08/24 at 1701, Low blood sugar, For BG 50-70 mg/dL: [...] weight of tube = 37.5 grams.), Routine heparin (porcine) (5,000 units/1 mL) subcutaneous injection 5,000 Units 5,000 Units, Subcutaneous, ONCE, 1 dose, On Fri03/01/24 at 0745, Day of Surgery (Day of Procedure), Routine Given 03/01/2024 7:40 AM EDT 5,000 Units hydrALAZINE (Apresoline) (20 mg/mL) injection 10 mg 10 mg, Intravenous, EVERY 2 HOURS PRN, Starting on Fri03/07/24 at 1602, Until Fri03/08/24 at 1701, High Blood Pressure, For HTN, SBP>160 mmHG not controlled two doses of Labetalol, For HTN, SBP>160 mmHG not controlled after two doses of Labetalol, hold if HR is greater than 100 If SBP does not drop <160 mmHG after administering two doses of Hydralazine then call Surgical Oncology on 501 Given 03/08/2024 5:15 AM EDT 10 mg Given 03/08/2024 2:01 AM EDT 10 mg Given 03/07/2024 4:12 PM EDT 10 mg HYDROmorphone (Dilaudid) (0.5 mg/0.5 mL) injection syringe 0.3 mg 0.3 mg, Intravenous, EVERY 4 HOURS PRN, Starting on Fri03/07/24 at 1620, Until Fri03/08/24 at 1701, Pain, for moderate to severe pain (4-10) not controlled with Tylenol and Oxycodone, Routine Given 03/07/2024 4:40 PM EDT 0.3 mg HYDROmorphone (Dilaudid) (2 mg/mL) injection solution 0.2 mg 0.2 mg, Epidural, ONCE, 1 dose, On Fri03/01/24 at 0645, Routine Given 03/01/2024 7:40 AM EDT 0.2 mg HYDROmorphone (Dilaudid) (2 mg/mL) multi-dose injection solution 0.4 mg 0.4 mg, Intravenous, EVERY 10 MIN PRN, Starting on Fri03/01/24 at 1808, Until Fri03/01/24 at 2323, Pain, For Mild to Moderate Pain (1-5 out of 10), Hold for respiratory rate less than 10 per minute. Maximum dose 4 mg over one hour including administrations in the OR. If multiple pain medications are ordered, start with HYDROmorphone or morphine and use fentaNYL for breakthrough pain., PACU Recovery, Routine Given 03/01/2024 8:46 PM EDT 0.4 mg HYDROmorphone (Dilaudid) (2 mg/mL) multi-dose injection solution 0.6 mg 0.6 mg, Intravenous, EVERY 10 MIN PRN, Starting on Fri03/01/24 at 1808, Until Fri03/01/24 at 2323, Pain, For Moderate to Severe Pain (6-10 out of 10), Hold for respiratory rate less than 10 per minute. Maximum dose 4 mg over one hour including administrations in the OR. If multiple pain medications are ordered, start with HYDROmorphone or morphine and use fentaNYL for breakthrough pain., PACU Recovery, Routine Given 03/01/2024 8:56 PM EDT 0.6 mg HYDROmorphone (pf) (10 mcg/mL), BUpivacaine (pf) 0.1% in sodium chloride 0.9% 250 mL epidural Epidural, Epidural Type: Continuous + PCEA, Continuous Rate: 6 mL/hr, PCEA Dose: 3 mL, PCEA Frequency: Every 20 minutes, 1 Hour Limit: 30 mL/hr, Maximum rate for continuous infusion is 16 mL per hour Maximum intermittent bolus is 15 mL Continuous = basal rate for epidural infusion PCEA (Patient Controlled Epidural Analgesia) = bolus from infusion delivered after patient presses demand button PIEB (Programmed Intermittent Epidural Bolus) = bolus from infusion delivered on a programmed frequency, Recovery (Recovery-Hospital Unit) New Bag 03/04/2024 8:08 PM EDT 250 mLs New Bag 03/03/2024 8:20 PM EDT 250 mLs New Bag 03/03/2024 1:00 AM EDT 250 mLs HYDROmorphone (pf) (10 mcg/mL), BUpivacaine (pf) 0.1% in sodium chloride 0.9% 250 mL epidural Epidural, Epidural Type: Continuous + PCEA, Continuous Rate: 3 mL/hr, PCEA Dose: 3 mL, PCEA Frequency: Every 20 minutes, 1 Hour Limit: 30 mL/hr, Maximum rate for continuous infusion is 16 mL per hour Maximum intermittent bolus is 15 mL Continuous = basal rate for epidural infusion PCEA (Patient Controlled Epidural Analgesia) = bolus from infusion delivered after patient presses demand button PIEB (Programmed Intermittent Epidural Bolus) = bolus from infusion delivered on a programmed frequency, Recovery (Recovery-Hospital Unit) New Bag 03/06/2024 10:58 PM EDT 250 mLs New Bag 03/05/2024 8:09 PM EDT 250 mLs Rate/Dose Change 03/05/2024 2:35 PM EDT HYDROmorphone (pf) (10 mcg/mL), BUpivacaine (pf) 0.1% in sodium chloride 0.9% 250 mL epidural Epidural, Epidural Type: PCEA Only, PCEA Dose: 3 mL, PCEA Frequency: Every 20 minutes, 1 Hour Limit: 30 mL/hr, Maximum rate for continuous infusion is 16 mL per hour Maximum intermittent bolus is 15 mL Continuous = basal rate for epidural infusion PCEA (Patient Controlled Epidural Analgesia) = bolus from infusion delivered after patient presses demand button PIEB (Programmed Intermittent Epidural Bolus) = bolus from infusion delivered on a programmed frequency, Recovery (Recovery-Hospital Unit) Rate/Dose Change 03/07/2024 8:57 AM EDT insulin glargine-ygfn (Semglee) (100 unit/mL) subcutaneous injection vial 10 Units 10 Units, Subcutaneous, NIGHTLY, First dose (after last modification) on Aline 03/04/24 at 2100, Until Discontinued, Routine Given 03/07/2024 8:39 PM EDT 10 Units Given 03/06/2024 10:00 PM EDT 10 Units Given 03/05/2024 8:54 PM EDT 10 Units insulin glargine-ygfn (Semglee) (100 unit/mL) subcutaneous injection vial 12 Units 12 Units, Subcutaneous, NIGHTLY, First dose (after last modification) on Fri03/08/24 at 2100, Until Discontinued, Routine insulin glargine-ygfn (Semglee) (100 unit/mL) subcutaneous injection vial 8 Units 8 Units, Subcutaneous, NIGHTLY, First dose on Fri03/02/24 at 2100, Until Discontinued, Routine Given 03/03/2024 8:34 PM EDT 8 Units Given 03/02/2024 8:50 PM EDT 8 Units insulin lispro (HumaLOG;Admelog) (100 unit/mL) subcutaneous injection vial 0-8 Units 0-8 Units, Subcutaneous, 3 TIMES DAILY WITH MEALS, First dose on Fri03/05/24 at 0815, Until Discontinued, MEAL ASS[employer]IATED Give 1 unit for every 10 grams carbohydrate. Hold if not eating or if BG less than 70 mg/dL. , Routine Given 03/05/2024 2:26 PM EDT 1 Units Given 03/05/2024 9:52 AM EDT 3 Units insulin lispro (HumaLOG;Admelog) (100 unit/mL) subcutaneous injection vial 1-4 Units 1-4 Units, Subcutaneous, EVERY 4 HOURS SCHEDULED, First dose on Fri03/01/24 at 2000, Until Discontinued, CORRECTION BOLUS [1-4 Units] Sensitive [...] 240 mg/dL in 2 hours., Routine Given 03/08/2024 8:36 AM EDT 1 Units Given 03/08/2024 4:00 AM EDT 1 Units Given 03/08/2024 12:07 AM EDT 1 Units ketorolac (Toradol) (15 mg/mL) injection 15 mg 15 mg, Intravenous, EVERY 6 HOURS SCHEDULED, 20 doses, First dose on 03/01/24 at 1945, Last dose on Fri03/06/24 at 1000, Routine Given 03/02/2024 9:19 AM EDT 15 mg Given 03/02/2024 4:34 AM EDT 15 mg Given 03/01/2024 8:24 PM EDT 15 mg labetaloL (Normodyne) (5 mg/mL) injection solution 20 mg 20 mg, Intravenous, EVERY 30 MIN PRN, Starting on Fri03/07/24 at 0800, Until Fri03/08/24 at 1701, High Blood Pressure, for SBP > 160, HR>60, For HTN, SBP>160 mmHG, hold if HR is below 60 If SBP does not drop <160 mmHG after 30 min of administering the first dose, then give the second dose If BP not controlled after two doses of Labetalol then call Surgical Oncology on [id number], Routine Given 03/08/2024 9:49 AM EDT 20 mg Given 03/08/2024 12:51 AM EDT 20 mg Given 03/07/2024 11:57 PM EDT 20 mg lactated Ringers 1,000 mL IV bolus Intravenous, ONCE, 1 dose, On Fri03/02/24 at 0630 03/02/2024 6:23 AM EDT lactated Ringers 1,000 mL IV bolus Intravenous, ONCE, 1 dose, On Fri03/02/24 at 1445 New 03/02/2024 2:52 PM EDT 500 mL/hr lactated Ringers 1,000 mL IV bolus Intravenous, ONCE, 1 dose, On Fri03/03/24 at 0515 03/03/2024 4:55 AM EDT lactated Ringers 500 mL IV bolus Intravenous, ONCE, 1 dose, On Fri03/02/24 at 0430 03/02/2024 4:34 AM EDT lactated Ringers 500 mL IV bolus Intravenous, ONCE, 1 dose, On Fri03/02/24 at 2015 03/02/2024 8:15 PM EDT 500 mL/hr lactated ringers infusion 1,000 mL, at 100 mL/hr, Intravenous, CONTINUOUS, Starting on Fri03/01/24 at 1830, Until Fri03/01/24 at 2323, PACU Recovery 03/01/2024 6:49 PM EDT 1,000 mLs 100 mL/hr lactated ringers infusion 1,000 mL, at 100 mL/hr, Intravenous, CONTINUOUS, Starting on Fri03/01/24 at 1915, Until Fri03/03/24 at 1405, Recovery (Recovery-Hospital Unit) 03/03/2024 8:40 AM EDT 1,000 mLs 100 mL/hr 03/03/2024 4:54 AM EDT 1,000 mLs 100 mL/hr New 03/02/2024 4:56 PM EDT 1,000 mLs 100 mL/hr lidocaine (Glydo) 2 % gel 11 mL 11 mL, INTRA-URETHRAL, ONCE, 1 dose, On Fri03/05/24 at 1800, 11 mL for intra-urethral use only, Routine Given 03/05/2024 5:36 PM EDT 11 mLs lidocaine (Lidoderm) 5% patch 1 patch 1 patch, Transdermal, Administer over 12 Hours, EVERY 24 HOURS, First dose on Fri03/01/24 at 1945, Until Discontinued, Apply patch(es) for 12 hours, and then remove for 12 hours., Routine Patch Applied 03/07/2024 8:38 PM EDT 1 patch 08- Back Lower (Right) Patch Applied 03/07/2024 12:21 AM EDT 1 patch 13- Abdomen (Left) Patch Applied 03/05/2024 7:57 PM EDT 1 patch 10- Arm Upper (Right) lidocaine (Lidoderm) 5% patch 1 patch 1 patch, Transdermal, Administer over 12 Hours, EVERY 24 HOURS, First dose on Fri03/07/24 at 1730, Until Discontinued, Apply patch(es) for 12 hours, and then remove for 12 hours. On his back at the epidural removal site, Routine Patch Applied 03/07/2024 4:42 PM EDT 1 patch 07- Back Lower (Left) LORazepam (Ativan) tablet 0.5 mg 0.5 mg, Oral, NIGHTLY PRN, Starting on Fri03/05/24 at 0720, Until Fri03/08/24 at 1701, Anxiety, Insomnia, Routine Given 03/07/2024 11:50 PM EDT 0.5 mg midazolam (pf) (Versed) (1 mg/mL) injection 0.5-2 mg 0.5-2 mg, Intravenous, EVERY 5 MIN PRN, Starting on Fri03/01/24 at 0616, Until Fri03/01/24 at 0731, Other, sedation, Start dose 1 mg (Reduce dose to 0.5 mg if history of sedation sensitivity). Titration dose: 0.5-2 mg IV (based on patient response) Intravenous (IV), every 3 minutes to maintain procedural sedation., Routine Given 03/01/2024 7:30 AM EDT 1 mg Given 03/01/2024 7:26 AM EDT 1 mg Given 03/01/2024 7:18 AM EDT 2 mg oxyCODONE (Roxicodone) tablet 5 mg 5 mg, Oral, EVERY 4 HOURS PRN, Starting on Fri03/04/24 at 0826, Until Fri03/07/24 at 0837, Pain, Routine Given 03/06/2024 5:45 AM EDT 5 mg Given 03/05/2024 11:10 PM EDT 5 mg oxyCODONE (Roxicodone) tablet 5-10 mg 5-10 mg, Oral, EVERY 4 HOURS PRN, Starting on Fri03/07/24 at 0836, Until Fri03/08/24 at 1701, Pain, 5mg for moderate pain 4-6 not controlled with Tylenol, 10mg for severe pain 7-10 not controlled with Tylenol, Routine Given 03/07/2024 3:17 PM EDT 5 mg Given 03/07/2024 2:36 PM EDT 5 mg Given 03/07/2024 10:37 AM EDT 5 mg pantoprazole (Protonix) injection 40 mg 40 mg, Intravenous, 2 TIMES DAILY, First dose on Fri03/02/24 at 2100, Until Discontinued, Reconstitute with 10 mL of normal saline to a concentration of 4 mg/mL and inject slowly over 2 minutes. Given 03/04/2024 8:02 PM EDT 40 mg Given 03/04/2024 8:16 AM EDT 40 mg Given 03/03/2024 8:24 PM EDT 40 mg pantoprazole EC (Protonix) tablet 40 mg 40 mg, Oral, 2 TIMES DAILY, First dose on Fri03/05/24 at 0900, Until Discontinued, DO NOT CRUSH OR OPEN, Routine Given 03/08/2024 8:32 AM EDT 40 mg Given 03/07/2024 8:37 PM EDT 40 mg Given 03/07/2024 9:05 AM EDT 40 mg polyethylene glycoL (Miralax) packet 17 g 17 g, Oral, DAILY, First dose on Fri03/05/24 at 0900, Until Discontinued, Routine Given 03/07/2024 9:06 AM EDT 17 g Given 03/05/2024 8:31 AM EDT 17 g potassium chloride 10 mEq in sterile water 100 mL infusion 10 mEq, Intravenous, EVERY 2 HOURS, 3 doses, First dose on Fri03/05/24 at 0630, Last dose on Fri03/05/24 at 1030, Administer over 60 Minutes, Doses of 20 mEq or greater require a Central Line Warning Vesicant/Irritant Medication New Bag 03/05/2024 9:52 AM EDT 10 mEq 100 mL/hr New Bag 03/05/2024 8:30 AM EDT 10 mEq 100 mL/hr New Bag 03/05/2024 6:11 AM EDT 10 mEq 100 mL/hr potassium chloride 10 mEq in sterile water 100 mL infusion 10 mEq, Intravenous, EVERY 2 HOURS, 4 doses, First dose on 03/06/24 at 0800, Last dose on 03/06/24 at 1400, Administer over 60 Minutes, Doses of 20 mEq or greater require a Central Line Warning Vesicant/Irritant Medication New Bag 03/06/2024 2:04 PM EDT 10 mEq 100 mL/hr New Bag 03/06/2024 12:09 PM EDT 10 mEq 100 mL/hr New Bag 03/06/2024 9:59 AM EDT 10 mEq 100 mL/hr potassium chloride 10 mEq in sterile water 100 mL infusion 10 mEq, Intravenous, EVERY 2 HOURS, 4 doses, First dose on Fri03/08/24 at 0715, Last dose on Fri03/08/24 at 1315, Administer over 60 Minutes, Doses of 20 mEq or greater require a Central Line Warning Vesicant/Irritant Medication New Bag 03/08/2024 11:58 AM EDT 10 mEq 100 mL/hr New Bag 03/08/2024 10:51 AM EDT 10 mEq 100 mL/hr New Bag 03/08/2024 9:47 AM EDT 10 mEq 100 mL/hr prochlorperazine (Compazine) (5 mg/mL) injection 10 mg 10 mg, Intravenous, EVERY 6 HOURS PRN, Starting on 03/06/24 at 0417, Until Fri03/08/24 at 1701, Nausea, for nausea or vomiting, Routine Given 03/08/2024 7:06 AM EDT 10 mg Given 03/07/2024 5:42 PM EDT 10 mg Given 03/07/2024 12:15 AM EDT 10 mg senna-docusate (Pericolace) 8.6-50 mg per tablet 2 tablet 2 tablet, Oral, 2 TIMES DAILY, First dose on Aline 03/04/24 at 1315, Until Discontinued, Routine Given 03/08/2024 8:32 AM EDT 2 tablets Given 03/07/2024 8:37 PM EDT 2 tablets Given 03/07/2024 9:05 AM EDT 2 tablets sodium chloride 0.9 % (flush) (BD PosiFlush Normal Saline 0.9) flush 5 mL 5 mL, Intravenous, 2 TIMES DAILY, First dose on Fri03/01/24 at 2100, Until Discontinued, Recovery (Recovery-Hospital Unit), Routine Given 03/08/2024 9:00 AM EDT 5 mLs Given 03/07/2024 8:44 PM EDT 5 mLs Given 03/07/2024 9:05 AM EDT 5 mLs sodium chloride 0.9 % (flush) (BD PosiFlush Normal Saline 0.9) flush 5-20 mL 5-20 mL, Intravenous, EVERY 1 MIN PRN, Starting on Fri03/01/24 at 1924, Until Fri03/08/24 at 1701, flush, Flush pertains to all indwelling lines. Flush per protocol found in the job aid using the link provided on this medication record., Recovery (Recovery-Hospital Unit), Routine Given 03/04/2024 8:39 AM EDT 5 mLs Given 03/04/2024 8:38 AM EDT 5 mLs sodium chloride 0.9% 500 mL IV bolus at 500 mL/hr, Intravenous, ONCE, 1 dose, On Fri03/08/24 at 0815 New Bag 03/08/2024 8:12 AM EDT 50 0 mL/hr sodium phosphate 10 mMol in sodium chloride 0.9% 100 mL infusion 10 mmol, Intravenous, ONCE, 1 dose, On Fri03/03/24 at 0645, Administer over 4 Hours, Administer over 4-6 hours New Bag 03/03/2024 6:46 AM EDT 10 mmol 25 mL /hr documented in this encounter Active and Recently Administered Medications Times are shown in EDT. Scheduled Medication Order 03/06/2024 03/07/2024 03/08/2024 acetaminophen (Tylenol) tablet 975 mg 975 mg, Oral, EVERY 6 HOURS SCHEDULED, First dose on Aline 03/04/24 at 1315, Until Discontinued, Maximum dose of acetaminophen is 4,000 mg from all sources in 24 hours. When ordered for pain, acetaminophen should be given even when other ordered pain medications are indicated., Routine 0545 (Given - Provider: Katelynn Unger RN)1209 (Given - Provider: Dilma Dominique, GRETCHEN)1712 (Given - Provider: Dilma Dominique RN) 0000 (Given - Provider: cSotty Dela Cruz RN)0653 (Given - Provider: Scotty Dela Cruz RN)1217 (Given - Provider: Bernadette Ford, GRETCHEN)1737 (Given - Provider: Bernadette Ford RN)2349 (Given - Provider: Nahomi Toussaint, GRETCHEN) 0514 (Given - Provider: Nahomi Toussaint, GRETCHEN)1156 (Given - Provider: Mae Velazquez RN) amLODIPine (Norvasc) tablet 10 mg 10 mg, Oral, DAILY, First dose on Fri03/05/24 at 0900, Until Discontinued, Routine 0840 (Given - Provider: Dilma Dominique RN) 0905 (Given - Provider: Bernadette Ford RN) 0832 (Given - Provider: Mae Velazquez RN) bisacodyL (Dulcolax) suppository 10 mg (COMPLETED) 10 mg, Rectal, ONCE, 1 dose, On Fri03/06/24 at 0930, Routine 1209 (Given - Provider: Dilma Dominique RN) citalopram (CeleXA) tablet 10 mg (CANCELED) 10 mg, Oral, DAILY, First dose on Fri03/01/24 at 1945, Until Discontinued, Routine 0840 (Given - Provider: Dilma Dominique, GRETCHEN) citalopram (CeleXA) tablet 40 mg 40 mg, Oral, DAILY, First dose (after last modification) on Fri03/07/24 at 0900, Until Discontinued, Routine 0905 (Given - Provider: Bernadette Ford RN) 0832 (Given - Provider: Mae Velazquez RN) enoxaparin (Lovenox) (40 mg/0.4 mL) subcutaneous injection 40 mg 40 mg, Subcutaneous, NIGHTLY, First dose on Fri03/01/24 at 2100, Until Discontinued, Routine 2200 (Given - Provider: Scotty Dela Cruz RN) 2037 (Given - Provider: Nahomi Toussaint RN) furosemide (Lasix) tablet 40 mg 40 mg, Oral, 2 TIMES DAILY, First dose on Fri03/04/24 at 0915, Until Discontinued, Routine 0841 (Given - Provider: Dilma Dominique RN)1712 (Given - Provider: Dilma Dominique RN) 0905 (Given - Provider: Bernadette Ford, GRETCHEN)1643 (Given - Provider: Bernadette Ford, GRETCHEN) 0832 (Given - Provider: Mae Velazquez RN) insulin glargine-ygfn (Semglee) (100 unit/mL) subcutaneous injection vial 10 Units (CANCELED) 10 Units, Subcutaneous, NIGHTLY, First dose (after last modification) on Fri03/04/24 at 2100, Until Discontinued, Routine 2199 (Given - Provider: Scotty Dela Cruz RN) 2038 (Given - Provider: Nahomi Toussaint RN) insulin glargine-ygfn (Semglee) (100 unit/mL) subcutaneous injection vial 12 Units 12 Units, Subcutaneous, NIGHTLY, First dose (after last modification) on Fri03/08/24 at 2100, Until Discontinued, Routine insulin lispro (HumaLOG;Admelog) (100 unit/mL) subcutaneous injection vial 0-8 Units 0-8 Units, Subcutaneous, 3 TIMES DAILY WITH MEALS, First dose on Fri03/05/24 at 0815, Until Discontinued, [employer] Give 1 unit for every 10 grams carbohydrate. Hold if not eating or if BG less than 70 mg/dL. , Routine 0800 (Not Given - Provider: Dilma Dominique RN - Reason: NPO)1200 (Not Given - Provider: Dilma Dominique RN - Reason: NPO)1700 (Not Given - Provider: Dilma Dominique RN - Reason: Contraindicated) 0836 (Not Given - Provider: Bernadette Ford RN - Reason: Order parameters not met - Comment: pt not eating breakfast)1220 (Not Given - Provider: Bernadette Ford RN - Reason: Order parameters not met - Comment: patient not eating lunch)1710 (Not Given - Provider: Bernadette Ford RN - Reason: Order parameters not met - Comment: patient not eating dinner) 0800 (Not Given - Provider: Mae Velazquez RN - Reason: See comment - Comment: pt nauseous)1200 (Not Given - Provider: Mae Velazquez RN - Reason: See comment - Comment: pt not eating a whole bunch) insulin lispro (HumaLOG;Admelog) (100 unit/mL) subcutaneous injection vial 1-4 Units(Linked Group 1) 1-4 Units, Subcutaneous, EVERY 4 HOURS SCHEDULED, First dose on Fri03/01/24 at 1999, Until Discontinued, CORRECTION BOLUS [1-4 Units] Sensitive [...] than 240 mg/dL in 2 hours., Routine 0000 (Not Given - Provider: Katelynn Unger RN - Reason: Order parameters not met - Comment: [phone])0545 (Given - Provider: Katelynn Unger RN)0813 (Given - Provider: Dilma Dominique RN)1200 (Not Given - Provider: Dilma Dominique RN - Reason: Order parameters not met)1600 (Not Given - Provider: Dilma Dominique RN - Reason: Order parameters not met)2000 (Not Given - Provider: Scotty Dela Cruz RN - Reason: Order parameters not met - Comment: BG 152) 0000 (Not Given - Provider: Scotty Dela Cruz RN - Reason: Order parameters not met - Comment: BG [phone] (Given - Provider: Casie Joseph RN - Comment: BG 169)0836 (Not Given - Provider: Bernadette Ford RN - Reason: Order parameters not met - Comment: [phone] (Given - Provider: Bernadette Ford RN - Comment: [phone] (Given - Provider: Bernadette Ford RN - Comment: [phone] (Given - Provider: Nahomi Toussaint RN) 0007 (Given - Provider: Nahomi Toussaint RN)0400 (Given - Provider: Nahomi Toussaint RN)0836 (Given - Provider: Mae Velazquez RN)1200 (Not Given - Provider: Mae Velazquez RN - Reason: Order parameters not met) lidocaine (Lidoderm) 5% patch 1 patch 1 patch, Transdermal, Administer over 12 Hours, EVERY 24 HOURS, First dose on Fri03/01/24 at 1945, Until Discontinued, Apply patch(es) for 12 hours, and then remove for 12 hours., Routine 0757 (Patch Removed - Provider: Dilma Dominique RN)1999 (Not Given - Provider: Scotty Dela Cruz RN - Reason: Patient/family refused) 0021 (Patch Applied - Provider: Scotty Dela Cruz RN)1218 (Patch Removed - Provider: Bernadette Ford RN)2037 (Patch Applied - Provider: Nahomi Toussaint RN) 0838 (Patch Removed - Provider: Mae Velazquez RN) lidocaine (Lidoderm) 5% patch 1 patch 1 patch, Transdermal, Administer over 12 Hours, EVERY 24 HOURS, First dose on Fri03/07/24 at 1730, Until Discontinued, Apply patch(es) for 12 hours, and then remove for 12 hours. On his back at the epidural removal site, Routine 1642 (Patch Applied - Provider: Bernadette Ford RN) 0442 (Patch Removed - Provider: Nahomi Toussaint RN) pantoprazole EC (Protonix) tablet 40 mg 40 mg, Oral, 2 TIMES DAILY, First dose on Fri03/05/24 at 0900, Until Discontinued, DO NOT CRUSH OR OPEN, Routine 0841 (Given - Provider: Dilma Dominique RN)2200 (Given - Provider: Scotty Dela Cruz RN) 0905 (Given - Provider: Bernadette Ford RN)203 (Given - Provider: Nahomi Toussaint, GRETCHEN) 0832 (Given - Provider: Mae Velazquez RN) polyethylene glycoL (Miralax) packet 17 g 17 g, Oral, DAILY, First dose on Fri03/05/24 at 0900, Until Discontinued, Routine 0900 (Not Given - Provider: Dilma Dominique RN - Reason: Contraindicated) 905 (Given - Provider: Bernadette Ford RN) 0900 (Not Given - Provider: Mae Velazquez RN - Reason: Patient/family refused) potassium chloride 10 mEq in sterile water 100 mL infusion (COMPLETED) 10 mEq, Intravenous, EVERY 2 HOURS, 4 doses, First dose on Fri03/06/24 at 0800, Last dose on Fri03/06/24 at 1400, Administer over 60 Minutes, Doses of 20 mEq or greater require a Central Line Warning Vesicant/Irritant Medication 0837 (New Bag - Provider: Dilma Dominique RN)0937 (Stopped - Provider: Dilma Dominique RN)0959 (New Bag - Provider: Dilma Dominique RN)1059 (Stopped - Provider: Dilma Dominique RN)1209 (New Bag - Provider: Dilma Dominique RN)1309 (Stopped - Provider: Dilma Dominique RN)1404 (New Bag - Provider: Dilma Dominique, GRETCHEN)1504 (Stopped - Provider: Dilma Dominique RN) potassium chloride 10 mEq in sterile water 100 mL infusion (COMPLETED) 10 mEq, Intravenous, EVERY 2 HOURS, 4 doses, First dose on Fri03/08/24 at 0715, Last dose on Fri03/08/24 at 1315, Administer over 60 Minutes, Doses of 20 mEq or greater require a Central Line Warning Vesicant/Irritant Medication 0817 (New Bag - Provider: Mae Velazquez RN)0933 (Stopped - Provider: Samra Robbins LPN)0947 (New Bag - Provider: Mae Velazquez RN)1050 (Stopped - Provider: Samra Robbins LPN)1051 (New Bag - Provider: Samra Robbins LPN)1151 (Stopped - Provider: Mae Velazquez RN)1158 (New Bag - Provider: Mae Velazquez RN)1258 (Stopped - Provider: Mae Velazquez RN) senna-docusate (Pericolace) 8.6-50 mg per tablet 2 tablet 2 tablet, Oral, 2 TIMES DAILY, First dose on Aline 03/04/24 at 1315, Until Discontinued, Routine 0840 (Given - Provider: Dilma Dominique, RN)2200 (Given - Provider: Scotty Dela Cruz, RN) 0905 (Given - Provider: Bernadette Ford, RN)203 (Given - Provider: Nahomi Toussaint, RN) 0832 (Given - Provider: Mae Velazquez RN) sodium chloride 0.9 % (flush) (BD PosiFlush Normal Saline 0.9) flush 5 mL 5 mL, Intravenous, 2 TIMES DAILY, First dose on Fri03/01/24 at 2100, Until Discontinued, Recovery (Recovery-Hospital Unit), Routine 0841 (Given - Provider: Dilma Dominique, GRETCHEN)2100 (Not Given - Provider: Scotty Dela Cruz, RN - Reason: Patient/family refused) 0905 (Given - Provider: Bernadette Ford, GRETCHEN)2043 (Given - Provider: Nahomi Toussaint, GRETCHEN) 0900 (Given - Provider: Mae Velazquez, GRETCHEN) sodium chloride 0.9% 500 mL IV bolus (COMPLETED) at 500 mL/hr, Intravenous, ONCE, 1 dose, On Fri03/08/24 at 0815 0812 (New Bag - Provider: Mae Velazquez, RN)0912 (Stopped - Provider: Mae Velazquez, RN) Continuous Medication Order 03/06/2024 03/07/2024 03/08/2024 HYDROmorphone (pf) (10 mcg/mL), BUpivacaine (pf) 0.1% in sodium chloride 0.9% 250 mL epidural (CANCELED) Epidural, Epidural Type: Continuous + PCEA, Continuous Rate: 3 mL/hr, PCEA Dose: 3 mL, PCEA Frequency: Every 20 minutes, 1 Hour Limit: 30 mL/hr, Maximum rate for continuous infusion is 16 mL per hour Maximum intermittent bolus is 15 mL Continuous = basal rate for epidural infusion PCEA (Patient Controlled Epidural Analgesia) = bolus from infusion delivered after patient presses demand button PIEB (Programmed Intermittent Epidural Bolus) = bolus from infusion delivered on a programmed frequency, Recovery (Recovery-Hospital Unit) 4555 (New Bag - Provider: Scotty Dela Cruz RN) HYDROmorphone (pf) (10 mcg/mL), BUpivacaine (pf) 0.1% in sodium chloride 0.9% 250 mL epidural (CANCELED)(Linked Group 2) Epidural, Epidural Type: PCEA Only, PCEA Dose: 3 mL, PCEA Frequency: Every 20 minutes, 1 Hour Limit: 30 mL/hr, Maximum rate for continuous infusion is 16 mL per hour Maximum intermittent bolus is 15 mL Continuous = basal rate for epidural infusion PCEA (Patient Controlled Epidural Analgesia) = bolus from infusion delivered after patient presses demand button PIEB (Programmed Intermittent Epidural Bolus) = bolus from infusion delivered on a programmed frequency, Recovery (Recovery-Hospital Unit) 0857 (Rate/Dose Change - Provider: Bernadette Ford RN)1026 (Stopped - Provider: Bernadette Ford RN) PRN Medication Order 03/06/2024 03/07/2024 03/08/2024 bisacodyL (Dulcolax) suppository 10 mg 10 mg, Rectal, DAILY PRN, Starting on Fri03/05/24 at 0718, Until Fri03/08/24 at 1701, Constipation, Routine dextrose 10% infusion(Linked Group 3) 250 mL, at 1,000 mL/hr, Intravenous, EVERY 15 MIN PRN, Starting on Fri03/01/24 at 1924, Until Fri03/08/24 at 1701, For BG 50-70 mg/dL: Oral treatment preferred: [...] insulin orders before administering the next dose. glucagon (Glucagen) (1 mg/mL) injection solution 1 mg(Linked Group 3) 1 mg, Intramuscular, EVERY 15 MIN PRN, Starting on Fri03/01/24 at 1924, Until Fri03/08/24 at 1701, Low blood sugar, For BG 50-70 mg/dL: [...] Routine glucose (Glutose) 40% oral geL(Linked Group 3) 15-30 g of glucose, Buccal, EVERY 15 MIN PRN, Starting on Fri03/01/24 at 1924, Until Fri03/08/24 at 1701, Low blood sugar, For BG 50-70 mg/dL: [...] weight of tube = 37.5 grams.), Routine hydrALAZINE (Apresoline) (20 mg/mL) injection 10 mg 10 mg, Intravenous, EVERY 2 HOURS PRN, Starting on Fri03/07/24 at 1602, Until Fri03/08/24 at 1701, High Blood Pressure, For HTN, SBP>160 mmHG not controlled two doses of Labetalol, For HTN, SBP>160 mmHG not controlled after two doses of Labetalol, hold if HR is greater than 100 If SBP does not drop <160 mmHG after administering two doses of Hydralazine then call Surgical Oncology on [phone] (Given - Provider: Bernadette Ford, GRETCHEN) 0201 (Given - Provider: Nahomi Toussaint, GRETCHEN)0515 (Given - Provider: Nahomi Toussaint RN) HYDROmorphone (Dilaudid) (0.5 mg/0.5 mL) injection syringe 0.3 mg 0.3 mg, Intravenous, EVERY 4 HOURS PRN, Starting on 03/07/24 at 1620, Until Fri03/08/24 at 1701, Pain, for moderate to severe pain (4-10) not controlled with Tylenol and Oxycodone, Routine 1640 (Given - Provider: Bernadette Ford, GRETCHEN) labetaloL (Normodyne) (5 mg/mL) injection solution 20 mg 20 mg, Intravenous, EVERY 30 MIN PRN, Starting on Fri03/07/24 at 0800, Until Fri03/08/24 at 1701, High Blood Pressure, for SBP > 160, HR>60, For HTN, SBP>160 mmHG, hold if HR is below 60 If SBP does not drop <160 mmHG after 30 min of administering the first dose, then give the second dose If BP not controlled after two doses of Labetalol then call Surgical Oncology on , Routine 1036 (Given - Provider: Bernadette Ford, GRETCHEN)1517 (Given - Provider: Bernadette Ford RN)1850 (Given - Provider: Bernadette Ford RN)2357 (Given - Provider: Nahomi Toussaint, GRETCHEN) 0051 (Given - Provider: Nahomi Toussaint RN)0949 (Given - Provider: Mae Velazquez RN) lidocaine (Xylocaine) 1% (10 mg/mL) injection 3 mg 3 mg (0.3 mL), Subcutaneous, ONCE PRN, 1 dose, Starting on Fri03/01/24 at 1924, Until Fri03/08/24 at 1701, for discomfort with PIV insertion, Recovery (Recovery-Hospital Unit), Routine LORazepam (Ativan) tablet 0.5 mg 0.5 mg, Oral, NIGHTLY PRN, Starting on Fri03/05/24 at 0720, Until Fri03/08/24 at 1701, Anxiety, Insomnia, Routine 2350 (Given - Provider: Nahomi Toussaint RN) oxyCODONE (Roxicodone) tablet 5 mg (CANCELED) 5 mg, Oral, EVERY 4 HOURS PRN, Starting on Aline 03/04/24 at 0826, Until 03/07/24 at 0837, Pain, Routine 0545 (Given - Provider: Katelynn Unger RN) oxyCODONE (Roxicodone) tablet 5-10 mg 5-10 mg, Oral, EVERY 4 HOURS PRN, Starting on 03/07/24 at 0836, Until Fri03/08/24 at 1701, Pain, 5mg for moderate pain 4-6 not controlled with Tylenol, 10mg for severe pain 7-10 not controlled with Tylenol, Routine 1037 (Given - Provider: Bernadette Ford RN)1436 (Given - Provider: Bernadette Ford RN)1517 (Given - Provider: Bernadette Ford RN) prochlorperazine (Compazine) (5 mg/mL) injection 10 mg 10 mg, Intravenous, EVERY 6 HOURS PRN, Starting on Fri03/06/24 at 0417, Until Fri03/08/24 at 1701, Nausea, for nausea or vomiting, Routine 0430 (Given - Provider: Katelynn Unger, GRETCHEN) 0015 (Given - Provider: Scotty Dela Cruz, RN)1742 (Given - Provider: Bernadette Ford, GRETCHEN) 0706 (Given - Provider: Nahomi Toussaint, GRETCHEN) sodium chloride 0.9 % (flush) (BD PosiFlush Normal Saline 0.9) flush 5-20 mL 5-20 mL, Intravenous, EVERY 1 MIN PRN, Starting on Fri03/01/24 at 1924, Until Fri03/08/24 at 1701, flush, Flush pertains to all indwelling lines. Flush per protocol found in the job aid using the link provided on this medication record., Recovery (Recovery-Hospital Unit), Routine Linked Groups Order Group 1: POCT Fingerstick Glucose (CANCELED) Routine, EVERY 4 HOURS, First occurrence on Fri03/01/24 at 1925, Until Specified, Consider choosing EVERY 4 HOURS as frequency for: - Type 1 Diabetes - At least 24 hours after coming off an insulin drip - At least 24 hours after admission for DKA - Hypoglycemia unawareness - Patients who are otherwise unstable Select the same frequency for the correction bolus insulin order And insulin lispro (HumaLOG;Admelog) (100 unit/mL) subcutaneous injection vial 1-4 UnitsJump to med 1-4 Units, Subcutaneous, EVERY 4 HOURS SCHEDULED, First dose on Fri03/01/24 at 2000, Until Discontinued, CORRECTION BOLUS [1-4 Units] Sensitive [...] mg/dL in 2 hours., Routine Group 2: HYDROmorphone (pf) (10 mcg/mL), BUpivacaine (pf) 0.1% in sodium chloride 0.9% 250 mL epidural (CANCELED)Jump to med Epidural, Epidural Type: PCEA Only, PCEA Dose: 3 mL, PCEA Frequency: Every 20 minutes, 1 Hour Limit: 30 mL/hr, Maximum rate for continuous infusion is 16 mL per hour Maximum intermittent bolus is 15 mL Continuous = basal rate for epidural infusion PCEA (Patient Controlled Epidural Analgesia) = bolus from infusion delivered after patient presses demand button PIEB (Programmed Intermittent Epidural Bolus) = bolus from infusion delivered on a programmed frequency, Recovery (Recovery- Hospital Unit) And Neuraxial shift total and Settings verification (CANCELED) Epidural, 2 Times Daily- Neuraxial Shift Total, First dose (after last modification) on Fri03/07/24 at 1800, Until Discontinued, Recovery (Recovery-Hospital Unit) And Neuraxial (Epidural) hogan (CANCELED) Epidural, CONTINUOUS PRN, Starting on Fri03/07/24 at 0758, Until Fri03/07/24 at 1044, Recovery (Recovery-Hospital Unit) Group 3: glucose (Glutose) 40% oral geLJump to med 15-30 g of glucose, Buccal, EVERY 15 MIN PRN, Starting on Fri03/01/24 at 1924, Until Fri03/08/24 at 1701, Low blood sugar, For BG 50-70 mg/dL: [...] Intravenous, EVERY 15 MIN PRN, Starting on Fri03/01/24 at 1924, Until Fri03/08/24 at 1701, For BG 50-70 mg/dL: Oral treatment preferred: [...] Intramuscular, EVERY 15 MIN PRN, Starting on Fri03/01/24 at 1924, Until Fri03/08/24 at 1701, Low blood sugar, For BG 50-70 mg/dL: [...] before administering the next dose. , Routine documented in this encounter Care Teams Upkeep Worker Relationship Specialty Start Date End Date Olga Hoffman APRN [address] [place] [address] PCP - General Family Medicine 10/30/22 documented as of this encounter
--- OUTSIDE RECORDS SUMMARY | 2024-05-21 01:11 | XMS_ITS | Encounter Summary ---
Author Organization [place] [address] Care Team Providers Care Crewman Main Battle Tank Name Role Phone Olga Hoffman APRN Primary Care Provider [phone] Reason for Referral * Consultation (Routine) - Authorized Specialty Diagnoses / Procedures Referred By Janak holland Referred To Contact Endocrinology Diagnoses Type 2 diabetes mellitus without complications Olga Hoffman APRN [address] [place] [address] [facility] [address] [place] [phone] Referral ID Status Reason Start Date Expiration Date Visits Requested Visits Authorized [id number] Authorized Consult, Test & Treat PCP Updated and/or Approved 02/23/2024 02/22/2025 12 12 Encounter Details Date Type Department Care Team (Latest Contact Info) Description 03/05/2024 Transcribe Orders eDH Incoming Referrals [phone] Olga Hoffman APRN [address] [place] [address] Other specified diabetes mellitus with other specified complication, unspecified whether extermination inspector insulin use Social History Tobacco Use Types Packs/Day Years [...] any time in the past 12 m [facility], were you homeless or living in a assisted (including now)? No 03/02/2024 IPV Inpatient Questions [...] 9:00 AM EDT Office [place] [address] Nighat López MD [facility] [place] [address] 05/28/2024 8:00 AM EDT Office Visit Hematology/Oncology at [address] [phone] Rodriguez Fowler MD [facility] [place] [address] Sherry Cedillo APRN [address] [place] [address] DR HEMATOLOGY AND ONCOLOGY [place], [place] [id number] 05/28/2024 8:30 AM EDT Infusion Hematology Oncology at [address] [phone] 05/28/2024 9:30 AM EDT Clinical Support Hematology/Oncology at [address] [phone] [facility] DR [place]AT[place] [address] Scheduled Referrals Name Type Priority Associated Diagnoses Order Schedule Referral to Endocrinology Outpatient Referral Routine Other specified diabetes mellitus with other specified complication, unspecified whether fpc insulin use Ordered: 03/05/2024 documented as of this encounter Visit Diagnoses Diagnosis Other specified diabetes mellitus with other specified complication, unspecified whether fpc insulin use documented in this encounter Care Teams Crewman Main Battle Tank Relationship Specialty Start Date End Date Olga Hoffman APRN [address] [place] [address] PCP - General Family Medicine 10/30/22 documented as of this encounter
--- OUTSIDE RECORDS SUMMARY | 2024-05-21 01:11 | XMS_ITS | Encounter Summary ---
Author Organization [facility] Address [facility] [place] [address] Care Team Providers Care Resort Desk Clerk Name Role Phone Olga Hoffman APRN Primary Care Provider [phone] Encounter Details Date Type Department Care Team (Late st Contact Info) Description 03/05/2024 Telephone [place] [phone] Gary Mtz PA [facility] [place] [address] Social History Tobacco Use Types Packs/Day Years Used Date Smoking Tobacco: Never Smokeless Tobacco: Never Alcohol Use Standard Drinks/Week Comments Not Currently 0 (1 standard drink = 0.6 oz pur e alcohol) [facility] Utilities Answer Date Recorded In the past 12 months has [facility] [employer], gas, oil, or water [place] threatened to shut off services in your [...] encounter Miscellaneous Notes * Telephone Encounter - Gary Mtz PA - 03/05/2024 3:51 PM EDT I sent a prescription for Semglee 10u qAM as recommended by our endocrine colleagues to [facility] in [place], [place]. I called and confirmed that Semglee is covered with no copay. documented in this encounter Plan of Treatment Upcoming Encounters Date Type Department Care Team (Late st Contact Info) Description 05/21/2024 9:00 AM EDT Office [place] [address] Nighat López MD [facility] [place] [address] 05/28/2024 8:00 AM EDT Office Visit Hematology/Oncology at [address] [phone] Rodriguez Fowler MD [facility] [place] [address] Sherry Cedillo APRN [address] [place] [address] DR HEMATOLOGY AND ONCOLOGY [place], [place] [id number] 05/28/2024 8:30 AM EDT Infusion Hematology Oncology at [address] [phone] 05/28/2024 9:30 AM EDT Clinical Support Hematology/Oncology at [address] [phone] [facility] [place] [address] documented as of this encounter Visit Diagnoses Not on filedocumented in this encounter Care Teams Resort Desk Clerk Relationship Specialty Start Date End Date Olga Hoffman APRN [address] [place] [address] PCP - General Family Medicine 10/30/22 documented as of this encounter
--- OUTSIDE RECORDS SUMMARY | 2024-05-21 01:12 | XMS_ITS | Encounter Summary ---
Author Organization [facility] [place] [address] Care Team Providers Care Cone Trucker Name Role Phone Olga Hoffman APRN Primary Care Provider [phone] Reason for Referral * Consultation (Routine) - Closed Specialty Diagnoses / Procedures Referred By Janak t Referred To Contact Gastroenterology Diagnoses CHAN (nonalcoholic steatohepatitis) Eugenia Barrera APRN [facility] [place] [address] [facility] [place] [address] Referral ID Status Reason Start Date Expiration Date V isits Requested Visits Authorized [id number] Closed Continuity of Care 01/24/2023 01/24/2024 1 1 Encounter Details Date Type Department Care Team (Late st Contact Info) Description 01/24/2023 9:00 AM EDT Office Visit [place] [address] Eugenia Barrera APRN [facility] [place] [address] CHAN (nonalcoholic steatohepatitis) Social History Tobacco Use Types Packs/Day Years Used Date Smoking Tobacco: Never Smokeless Tobacco: Never Tobacco Cessation:Counseling Given: Not Answered Alcohol Use Standard Drinks/Week Comments Not Currently 0 (1 standard drink = 0.6 oz pur e alcohol) Overall Financial Resource Strain (CARDIA) Answe r Date Recorded How hard is it for you to pa y for the very basics like food, housing, medical care, and heating? Somewhat hard 01/23/2023 Hunger Vital Sign Answer Date Recorded Within the past 12 months, y ou worried that your food would run out before you got the money to buy more. Sometimes true Within the past 12 months, t he food you bought just didn't last and you didn't have money to get more. Sometimes true 07/2023 PRAPARE - Transportation Answer Date Re corded In the past 12 months, has l ack of transportation kept you from medical appointments or from getting medications? No 01/13 In the past 12 months, has l ack of transportation kept you from meetings, work, or from getting things needed for daily living? No 01/23/2023 Housing Stability Vital Sign Answer [...] in a chcf (including now)? No 01/23/2023 Sex and Gender Information Value Date Recorded Sex Assigned at Not on file Gender Identity Not on file Sexual Orientation Not on file documented as of this encounter Last Filed Vital Signs Vital Sign Reading Time Taken Comments Blood Pressure - - Pulse - - Temperature - - Respiratory Rate - - Oxygen Saturation - - Inhaled Oxygen Concentration - - Weight 125.7 kg (277 lb 1.6 oz) 01/24/2023 8:51 AM EDT Height 188 cm (6' 2) 01/24/2023 8:51 AM EDT Body Mass Index 35.58 01/24/2023 8:51 AM EDT documented in this encounter Progress Notes * Eugenia Barrera APRN - 01/24/2023 9:00 AM EDT Images from the original note were not included. Hepatology Follow Up Note Patient: Charles Nick Gender: male : 1975 Provider: Eugenia Barrera NP Referring Physician: Olga Hoffman APRN HISTORY OF PRESENT ILLNESS Charles Nick is a 47 y.o. year old male with past medical history of hypertension, depression, diabetes who presents for follow up. I first saw him 1 month ago and decided to get a liver biopsy because his fibroscan showed stage 3 fibrosis. He returns today to review the results of his liver biopsy. Still tolerating Trulicity okay. He has lost about 10 lbs. Just got a puppy dog - wolof kiersten, named Darlene, the [employer] word for Fritz, taking her out onwalks a lot. She's 12 weeks right now. Hasn't had a dog for a while, but a lot of work. Hasn't been able to get into Mediterranean diet. He is a single dad to his 3 kids and usually by the time he gets home from work because of been home since 330 and he is just trying to get them something to eat. Additionally 2 of his kids do not like any seafood. Diet yesterday : Breakfast: [employer] Large black coffee, 2 sausage biscuits Lunch: Large black coffee, no lunch Dinner: mac and cheese. Yesterday got candy at the local store, knows he was doing some emotional eating because came across some paperwork dealing with his ex- Usually no snacks during the day. PAST MEDICAL/SURGICAL HISTORY ?? Diabetes - diagnosed 6-7 years ago. Blood sugar 200-115. uusally around 120 in AM. ?? Hypertension ?? Depression ?? 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 Underwent spontaneous remission without imunotherapy. Repeat biopsy in 2007 at [facility]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. ?? Obstructive sleep apnea: Uses CPAP with improvement tin daytime alertness and mood ?? CHAN ?? Liver biopsy 01/07/2023 Steatosis with steatohepatitis, stage 2/4 (sn). MEDICATIONS Outpatient Medications Marked as Taking for the 01/24/23 encounter (Office Visit) with Eugenia Barrera APRN Medication Sig Dispense Refill ??? cyanocobalamin, Vitamin B-12, (Vitamin B-12) 100 mcg tablet Take 100 mcg by mouth daily. ??? ondansetron ODT (Zofran-ODT) 4 mg disintegrating tablet Take 4 mg by mouth every 8 hours as needed for Nausea. ??? Trulicity 0.75 mg/0.5 mL Pen Injector INJECT 0.75MG UNDER THE SKIN ONCE A WEEK ??? citalopram (CeleXA) 10 mg tablet Take 10 mg by mouth daily. ??? famotidine (Pepcid) 20 mg tablet Take 20 mg by mouth 2 times daily. ??? tadalafiL (CIALIS) 10 mg Tablet TAKE 1 TABLET BY MOUTH ONCE A DAY NEEDED. TAKE 1 HOUR PRIOR TO SEXUAL INTERCOURSE ??? gabapentin (NEURONTIN) 600 mg Tablet Take 600 mg by mouth 3 times daily. ??? furosemide (Lasix) 20 mg Tablet Take 1 tablet by mouth 2 times daily. (Patient taking differently: Take 10 mg by mouth daily.) 180 tablet 3 ??? metFORMIN (GLUCOPHAGE) 1,000 mg Tablet Take 1,000 mg by mouth 2 times daily (with meals). ALLERGIES Allergies Allergen Reactions ??? Penicillins Rash SOCIAL HISTORY [facility] 3 kids age 14, 12, 11. Works at [employer] for [employer]. Alcohol: on holidays will have 1-2 drinks. Not regular.When in would binge drink but has not drank heavily since then FAMILY HISTORY No known hx of liver diseaes. PHYSICAL EXAM Vitals: 01/24/23 0851 Weight: 125.7 kg (277 lb 1.6 oz) Height: 188 cm (6' 2) Body mass index is 35.58 kg/m??. Gen: Well appearing, no apparent distress. Extremities: No edema. Neuro: alert and oriented x3, no asterixis or tremor. Lab Results Component Value Date WBC 9.4 01/06/2023 HGB 16.2 01/06/2023 HCT 49.9 (H) 01/06/2023 MCV 76.5 (L) 01/06/2023 PLATELET 228 01/06/2023 No results for input(s): INR in the last 168 hours. Chemistry Component Value Date/Time NA 140 01/06/2023 0832 K 4.4 01/06/2023 0832 CL 100 01/06/2023 0832 CO2 30 01/06/2023 0832 BUN 10 01/06/2023 0832 CREATININE 1.03 01/06/2023 0832 Component Value Date/Time CALCIUM 9.3 01/06/2023 0832 ALKPHOS 90 01/06/2023 0832 AST 17 01/06/2023 0832 ALT 19 01/06/2023 0832 BILITOT 0.5 01/06/2023 0832 04/29/2022 ALT 32, AST 20 09/23/2022: ALT 51, AST 28 11/11/2022: ALT: 36 AST: 18 Alk Phos: 78 Albumin: 3.7 Platelets: 206 Hgb: 15.0 Ferritin: 147 HbA1c: 6.4% CT Chest 09/2022 Fibroscan Results: Median kPa: 10.1 kpa Mean IQR: 15% (goal is <30 %) Number of valid measurements: 11 (at least 10 required) Number of invalid measurements: 0 Predicted fibrosis stage: F3 CAP (dB/m): 312 Estimated steatosis grade: 3/3 % hepatocytes affected: > 66 % Liver biopsy 01/07/2023: Steatosis with steatohepatitis, stage 2/4 (sn). ASSESSMENT/PLAN Charles Nick is a 47 y.o. 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 His metabolic risks include hypertension and diabetes. We reviewed his liver biopsy which shows stage II of fibrosis and steatohepatitis. He has been working on weight loss with the help of medication (now on Trulicity and is also been trying to watch his diet. He is a single father to 3 preteen and teenage children and also has to feed them, so this has been a challenge. We discussed strategies including meal planning which she is hoping to get into. He would be interested in meeting with a dietitian especially if it could be via telehealth as [place]travel[place] to [facility]. We discussed what with diet, exercise and weight loss there can be regression of steatosis and fibrosis in the liver. He will continue to work on this and we will plan onfollowing up in 6 months with rechecking his liver enzymes at that time Plan: - Refer to account resolution analyst to help with meal planning for CHAN, strategies for eating. - Follow up in 6 months with blood work. Eugenia Barrera APRN Section of Gastroenterology [place] [address] Copy: Olga Hoffman APRN [address] / [facility], [place] [address] Time spent reviewing records prior to this encounter: 5 minutes Time spent during encounter with patient including counselin minutes Time spent documenting encounter on date of service: 6 minutes Approximate total time devoted to this single encounter on date of service: 31 minutes documented in this encounter Plan of Treatment Upcoming Encounters Date Type Department Care Team (Late st Contact Info) Description 05/21/2024 9:00 AM EDT Office Visit [place] [phone] Nighat López MD [facility] [place] [address] 05/28/2024 8:00 AM EDT Office Visit Hematology/Oncology at [address] [phone] Rodriguez Fowler MD [facility] [place] [address] Sherry Cedillo APRN [address] [place] [address] DR HEMATOLOGY AND ONCOLOGY [place], [place] [id number] 05/28/2024 8:30 AM EDT Infusion Hematology Oncology at [address] [phone] 05/28/2024 9:30 AM EDT Clinical Support Hematology/Oncology at [address] [phone] [address] [facility] DR HEMATOLOGY [place] [address] Scheduled Orders Name Type Priority Associated Diagnoses Orde r Schedule Comprehensive metabolic panel (non-fasting) Lab Routine CHAN (nonalcoholic steatohepatitis) Expected: 01/24/2023 (Approximate), Expires: 07/26/2023 Scheduled Referrals Name Type Priority Associated Diagnoses Orde r Schedule Referral to Nutrition Services Outpatient Referral Routine CHAN (nonalcoholic steatohepatitis) Ordered: 01/24/2023 documented as of this encounter Visit Diagnoses Diagnosis CHAN (nonalcoholic steatohepatitis) Other chronic nonalcoholic liver disease documented in this encounter Care Teams Cone Trucker Relationship Specialty Start Date End Date Olga Hoffman APRN [address] [place] [address] PCP - General Family Medicine 10/30/22 documented as of this encounter
--- OUTSIDE RECORDS SUMMARY | 2024-05-21 01:12 | XMS_ITS | Encounter Summary ---
Author Organization [facility] Address [facility] [place] [address] Care Team Providers Care Human Factors Engineer Name Role Phone Olga Hoffman APRN Primary Care Provider [phone] Encounter Details Date Type Department Care Team (Late st Contact Info) Description 02/07/2023 1:00 PM EDT TH Visit (TeleHealth) Hematology [place] [address] Veena Cunningham MD [facility] DR HEMATOLOGY [place] [address] Erythrocytosis; Microcytosis Social History Tobacco Use Types Packs/Day Years [...] in a fdc (including now)? No 01/23/2023 Sex and Gender Information Value Date Recorded Sex Assigned at Not on file Gender Identity Not on file Sexual Orientation Not on file documented as of this encounter Progress Notes * Veena Mckeon MD - 02/07/2023 1:00 PM EDT Images from the original note were not included. HEMATOLOGY TELE HEALTH FOLLOW UP VISIT NOTE DATE OF VISIT : 02/07/23 REASON FOR VISIT: To review the labs and further management HISTORY OF PRESENT ILLNESS Charles Nick is a 47 y.o. male with PMH of DM, HTN, JOSE, referred for evaluation of erythrocytosis and microcytosis. Data Review (From Dr.Kathryn Arabella Hoffman and the EMR) He is noted to have elevated RBC count and normal Hgb (< 16.5g/dL) since at least 2010. He is also noted to have microcytosis since at least 2008. Labs prior to that are not available. Rest of the2 blood cells are normal. JAK2 negative for V617F mutation Iron: 74, TIBC: 297, Transferrin : 25%, ferritin : 147 INTERIM Hx: No new health issues since last seen PROBLEM LIST Patient Active Problem List Diagnosis Code ??? CKD (chronic kidney disease) stage 3, GFR 30-59 ml/min N18.30 ??? Obesity E66.9 MEDICATIONS Current Outpatient Medications Medication Instructions ??? citalopram (CELEXA) 10 mg, Oral, DAILY ??? cyanocobalamin (Vitamin B-12) (VITAMIN B-12) 100 mcg, Oral, DAILY ??? famotidine (PEPCID) 20 mg, Oral, 2 TIMES DAILY ??? furosemide (LASIX) 20 mg, Oral, 2 TIMES DAILY ??? gabapentin (NEURONTIN) 600 mg, Oral, 3 TIMES DAILY ??? metFORMIN (GLUCOPHAGE) 1,000 mg, Oral, 2 TIMES DAILY WITH MEALS ??? ondansetron ODT (ZOFRAN-ODT) 4 mg, Oral, EVERY 8 HOURS PRN ??? tadalafiL (CIALIS) 10 mg Tablet TAKE 1 TABLET BY MOUTH ONCE A DAY NEEDED. TAKE 1 HOUR PRIOR TO SEXUAL INTERCOURSE ??? Trulicity 0.75 mg/0.5 mL Pen Injector INJECT 0.75MG UNDER THE SKIN ONCE A WEEK ALLERGIES/ADR Allergies Allergen Reactions ??? Penicillins Rash SOCIAL History; Social History Socioeconomic History ??? Marital status: Spouse name: Not on file ??? Number of children: Not on file ??? Years of education: Not on file ??? Highest education level: Not on file Occupational History ??? Not on file Tobacco Use ??? Smoking status: Never ??? Smokeless tobacco: Never Vaping Use ??? Vaping Use: Never used Substance and Sexual Activity ??? Alcohol use: Not Currently ??? Drug use: Not Currently ??? Sexual activity: Not on file Other Topics Concern ??? Not on file Social History Narrative ??? Not on file Social Determinants of Health Financial Resource Strain: Medium Risk ??? Difficulty of Paying Living Expenses: Somewhat hard Food Insecurity: Food Insecurity Present ??? Worried About Running Out of Food in the Last Year: Sometimes true ??? Ran Out of Food in the Last Year: Sometimes true Transportation Needs: No Transportation Needs ??? Lack of Transportation (Medical): No ??? Lack of Transportation (Non-Medical): No Physical Activity: Not on file Housing Stability: Low Risk ??? Unable to Pay for Housing in the Last Year: No ??? Number of Places Lived in the Last Year: 1 ??? Unstable Housing in the Last Year: No ?? Lives in [place] ([place]mts from [facility] ?? 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 Smoking: No No family history on file. No FH of hematogical disorders , anemia, thalassemia LABORATORY From today - Pending. Lab Results Component Value Date WBC 8.3 01/24/2023 RBC 5.93 (H) 01/24/2023 HGB 14.8 01/24/2023 HCT 45.1 01/24/2023 MCV 76.1 (L) 01/24/2023 MCH 25.0 (L) 01/24/2023 MCHC 32.8 01/24/2023 PLATELET 206 01/24/2023 RDWCV 14.8 (H) 01/24/2023 Latest Reference Range & Units 01/24/23 10:42 Iron 45 - 160 mcg/dL 67 TIBC 250 - 450 mcg/dL 304 Iron Saturation 20 - 50 % 22 Ferritin 30 - 400 ng/mL 113 NEGATIVE for JAK2 gene sequence variants, including p.V617F or others in exons 12-15. Epo level: 11.8 ASSESSMENT & PLANS Charles Nick is a 47 y.o. male with PMH of DM, HTN, JOSE, referred for evaluation of erythrocytosis and microcytosis. He is noted to have elevated RBC count and normal Hgb (< 16.5g/dL) since at least 2010. He is also noted to have microcytosis since at least 2008. Repeat CBC showed elevated RBC count at 5.93, with normal Hgb at 14.8 g/dL. Rest of the 2 blood cells are normal. JAK2 was negative for V617F mutation and exon 12-15 variants. Erythropoietin level is normal at 11.8. Based on these labs, primary disorders of hematopoiesis such as polycythemia vera or other myeloproliferative neoplasms is felt to be less likely. I suspect, his erythrocytosis is reactive, could be due to his h/o JOSE or relative Erythrocytosis (Gaisbock syndrome) which is due to chronically reduced plasma volume. He is already on CPAP. Advisedto increase fluid intake. He does not need any further evaluation for this. Microcytosis -iron studies are normal . Reticulated hemoglobin is low suggesting likely underlying inflammation . His history is not suggestive of lead exposure or thalassemias. I recommend monitoring with no further intervention at this time. # High BPs - reports h/o white coat syndrome. Home BPs run in the normal range As he does not have any primary hematological disorder, he does not need any further follow-up withme/hematology I reviewed my impression and recommendations with Charles Nick and answered all the questions.. Pt agreed with the plan. Thank you Olga Bejarano for asking us to see this very pleasant patient. Please don't hesitate to contact me if you'd like to discuss this patient's situation further. Veena Mckeon MD [facility] CC: YOCASTA Briones Kathryn H documented in this encounter Plan of Treatment Upcoming Encounters Date Type Department Care Team (Late st Contact Info) Description 05/21/2024 9:00 AM EDT Office [place] [address] Nighat López MD [facility] DR ENDOCRIN[place] [address] 05/28/2024 8:00 AM EDT Office Visit Hematology/Oncology at [address] [phone] Rodriguez Fowler MD [facility] [place] [address] Sherry Cedillo, [address] HEMATOLOGY AND ONCOLOGY [place], [place] [phone] 05/28/2024 8:30 AM EDT Infusion Hematology Oncology at [address] [phone] 05/28/2024 9:30 AM EDT Clinical Support Hematology/Oncology at [address] [phone] [facility] DR HEMATOLOGY [place] [address] documented as of this encounter Visit Diagnoses Diagnosis Erythrocytosis Polycythemia, secondary Microcytosis Other abnormality of red blood cells documented in this encounter Care Teams Human Factors Engineer Relationship Specialty Start Date End Date Olga Hoffman APRN [address] [place] [address] PCP - General Family Medicine 10/30/22 documented as of this encounter
--- OUTSIDE RECORDS SUMMARY | 2024-05-21 01:12 | XMS_ITS | Encounter Summary ---
[place] [address] Care Team Providers Care Mainspring Former Name Role Phone Olga Hoffman APRN Primary Care Provider +1 [phone] Reason for Referral * Consultation (Routine) - Canceled Specialty Diagnoses / Procedures Referred By Janak holland Referred To Contact Vascular Surgery Diagnoses Cramp and spasm Olga Hoffman APRN [address] [place] [address] [facility] [place] Vascular [place] [address] [place] [address] Referral ID Status Reason Start Date Expiration Date V isits Requested Visits Authorized [id number] Canceled Consult, Test & Treat 02/24/2024 02/23/2025 1 1 Encounter Details Date Type Department Care Team (Late st Contact Info) Description 02/24/2024 Transcribe Orders eDH Incoming Referrals [phone] Olga Hoffman APRN [address] [place] [address] Cramp and spasm Social History Tobacco Use Types Packs/Day Years [...] a long term (including now)? No 01/23/2023 Sex and Gender Information Value Date Recorded Sex Assigned at Not on file Gender Identity Not on file Sexual Orientation Not on file documented as of this encounter Plan of Treatment Upcoming Encounters Date Type Department Care Team (Late st Contact Info) Description 05/21/2024 9:00 AM EDT Office Visit [place] [address] Nighat López MD [facility] [place] [address] 05/28/2024 8:00 AM EDT Office Visit Hematology/Oncology at [address] [phone] Rodriguez Fowler MD [facility] [place] [address] Sherry Cedillo APRN [address] [place] [address] DR HEMATOLOGY AND ONCOLOGY [place], [place] [id number] 05/28/2024 8:30 AM EDT Infusion Hematology Oncology at [address] [phone] 05/28/2024 9:30 AM EDT Clinical Support Hematology/Oncology at [address] [phone] Leah Rose, RD [facility] DR HEMATOLOGY AND [place]COLOG[place] [address] Scheduled Referrals Name Type Priority Associated Diagnoses Orde r Schedule Referral to Vascular Surgery Outpatient Referral Routine Cramp and spasm Ordered: 02/24/2024 documented as of this encounter Visit Diagnoses Diagnosis Cramp and spasm documented in this encounter Care Teams Mainspring Former Relationship Specialty Start Date End Date Olga Hoffman APRN [address] [place] [address] PCP - General Family Medicine 10/30/22 documented as of this encounter
--- OUTSIDE RECORDS SUMMARY | 2024-05-21 01:12 | XMS_ITS | Encounter Summary ---
Author Organization [facility] Address [facility] [place] [address] Care Team Providers Care Pararescue Manager Name Role Phone Olga Hoffman APRN Primary Care Provider [phone] [phone] Encounter Details Date Type Department Care Team (Late st Contact Info) Description 01/12/2024 External [place] [address] Provider, Scanning Social History Tobacco Use Types Packs/Day Years [...] place to sleep or slept in a half-way (including now)? No 01/23/2023 Sex and Gender Information Value Date Recorded Sex Assigned at Not on file Gender Identity Not on file Sexual Orientation Not on file documented as of this encounter Plan of Treatment Upcoming Encounters Date Type Department Care Team (Late st Contact Info) Description 05/21/2024 9:00 AM EDT Office Visit [place] [address] Nighat López MD [facility] [place] [address] 05/28/2024 8:00 AM EDT Office Visit Hematology/Oncology at [address] [phone] Rodriguez Fowler MD [facility] [place] [address] Sherry Cedillo SLIP COVER CUTTER [address] [place] [address] DR HEMATOLOGY AND ONCOLOGY [place], [place] [id number] 05/28/2024 8:30 AM EDT Infusion Hematology Oncology at [address] [phone] 05/28/2024 9:30 AM EDT Clinical Support Hematology/Oncology at [address] [phone] [facility] DR [place] [address] documented as of this encounter Procedures Procedure Name Priority Date/Time Associated Diagnosis Comments SURGICAL PATHOLOGY SCAN Routine 01/12/2024 documented in this encounter Results * Scan Doc: Surgical Pathology (01/12/2024) Historical Provider MEDIA MGR SCAN EX T ORDR/RSLT documented in this encounter Visit Diagnoses Not on filedocumented in this encounter Care Teams Pararescue Manager Relationship Specialty Start Date End Date Olga Hoffman APRN [address] [place] [address] PCP - General Family Medicine 10/30/22 documented as of this encounter
--- OUTSIDE RECORDS SUMMARY | 2024-05-21 01:12 | XMS_ITS | Encounter Summary ---
[place] [address] Care Team Providers Care Monkey Keeper Name Role Phone Olga Hoffman APRN Primary Care Provider [phone] [phone] Reason for Referral * Consultation (Urgent) - Authorized Specialty Diagnoses / Procedures Referred By Janak holland Referred To Contact General Surgery Diagnoses Adenocarcinoma of duodenum Jaki Phillips DO [address] [place] [address] [address] [place] [address] [facility] [address] [place] [phone] Referral ID Status Reason Start Date Expiration Date Visits Requested Visits Authorized [id number] Authorized Consult, Test & Treat PCP Updated and/or Approved 01/09/2024 01/08/2025 6 6 Encounter Details Date Type Department Care Team (Latest Contact Info) Description 01/14/2024 Transcribe Orders eDH Incoming Referrals [phone] Jaki Phillips DO [address] [place] [address] [address] [place] [address] Adenocarcinoma of duodenum Social History Tobacco Use Types Packs/Day [...] in a penitentiary (including now)? No 01/23/2023 Sex and Gender Information Value Date Recorded Sex Assigned at Not on file Gender Identity Not on file Sexual Orientation Not on file documented as of this encounter Plan of Treatment Upcoming Encounters Date Type Department Care Team (Late st Contact Info) Description 05/21/2024 9:00 AM EDT Office [place] [address] Nighat López MD [facility] [place] [address] 05/28/2024 8:00 AM EDT Office Visit Hematology/Oncology at [address] [phone] Rodriguez Fowler MD [facility] [place] [address] Sherry Cedillo APRN [address] [place] [address] DR HEMATOLOGY AND ONCOLOGY [place], [place] [id number] 05/28/2024 8:30 AM EDT Infusion Hematology Oncology at [address] [phone] 05/28/2024 9:30 AM EDT Clinical Support Hematology/Oncology at [address] [phone] Leah Rose, RD [facility] [place] [address] Scheduled Referrals Name Type Priority Associated Diagnoses Orde r Schedule Referral to General Surgery Outpatient Referral Urgent Adenocarcinoma of duodenum Ordered: 01/14/2024 documented as of this encounter Visit Diagnoses Diagnosis Adenocarcinoma of duodenum Malignant neoplasm of duodenum documented in this encounter Care Teams Monkey Keeper Relationship Specialty Start Date End Date Olga Hoffman APRN [address] [place] [address] PCP - General Family Medicine 10/30/22 documented as of this encounter
--- OUTSIDE RECORDS SUMMARY | 2024-05-21 01:12 | XMS_ITS | Encounter Summary ---
Author Organization [place] [address] Care Team Providers Care Yardage Tufting Machine Operator Name Role Phone Olga Hoffman APRN Primary Care Provider [phone] [phone] Reason for Referral * Diagnostic Test (Routine) - Closed Specialty Diagnoses / Procedures Referred By Contac t Referred To Contact Radiology Diagnoses Duodenal adenocarcinoma Procedures NM PET CT Skull Base to Mid-[facility] Jaki Phillips [address] [place] [address] [place] [address] Referral ID Status Reason Start Date Expiration Date V isits Requested Visits Authorized [id number] Closed Specialty Service Requested 01/13/2024 07/14/2025 1 1 Reason for Visit * Diagnostic Test (Routine) - Closed Specialty Diagnoses / Procedures Referred By Contac t Referred To Contact Radiology Diagnoses Duodenal adenocarcinoma Procedures NM PET CT Skull Base to Mid-thigh Jaki Phillips [address] [place] [address] [place] [address] Referral ID Status Reason Start Date Expiration Date V isits Requested Visits Authorized [id number] Closed Specialty Service Requested 01/13/2024 07/14/2025 1 1 Encounter Details Date Type Department Care Team (Latest Contact Info) Description 01/27/2024 12:05 PM EDT Hospital Encounter [place] [address] Jaki Phillips, DO [address] [place] [address] Duodenal adenocarcinoma Discharge Disposition: Home Social History [...] in a fci (including now)? No 01/23/2023 Sex and Gender Information Value Date Recorded Sex Assigned at Not on file Gender Identity Not on file Sexual Orientation Not on file documented as of this encounter Medications at Time of Discharge Medication Sig Dispensed Refills Start Date End Date magnesium oxide (Mag-Ox) 400 mg (241.3 mg magnesium) Tablet Take 1 tablet by mouth nightly. 09/19/2023 citalopram (CeleXA) 10 mg tablet Take 10 mg by mouth daily. tadalafiL (CIALIS) 10 mg Tablet TAKE 1 TABLET BY MOUTH ONCE A DAY NEEDED. TAKE 1 HOUR PRIOR TO SEXUAL INTERCOURSE 11/01/2021 gabapentin (NEURONTIN) 600 mg Tablet Take 600 mg by mouth 3 times daily. 08/30/2021 furosemide (Lasix) 20 mg TabletIndications:Prote inuria, unspecified type,Obesity, unspecified classification, unspecified obesity type, unspecified whether serious comorbidity present,Hypertension secondary to other renal disorders Take 1 tablet by mouth 2 times daily. 180 tablet 3 02/15/2021 cyanocobalamin, Vitamin B-12, (Vitamin B-12) 100 mcg tablet Take 100 mcg by mouth daily. 03/24/2024 ondansetron ODT (Zofran-ODT) 4 mg disintegrating tablet Take 4 mg by mouth every 8 hours as needed for Nausea. 04/01/2024 Trulicity 0.75 mg/0.5 mL Pen Injector INJECT 0.75MG UNDER THE SKIN ONCE A WEEK 11/19/2022 02/20/2024 famotidine (Pepcid) 20 mg tablet Take 20 mg by mouth 2 times daily. 03/24/2024 metFORMIN (GLUCOPHAGE) 1,000 mg TabletIndications:Prote inuria,Obesity,Hyperten lake secondary to other renal disorders Take 1,000 mg by mouth 2 times daily (with meals). 02/27/2024 documented as of this encounter Plan of Treatment Upcoming Encounters Date Type Department Care Team (Late st Contact Info) Description 05/21/2024 9:00 AM EDT Office Visit [place] [address] Nighat López MD [facility] [place] [address] 05/28/2024 8:00 AM EDT Office Visit Hematology/Oncology at [address] [phone] Rodriguez Fowler MD [facility] [address] Sherry Cedillo APRN [address] [place] [address] DR [place] [address] 05/28/2024 8:30 AM EDT Infusion Hematology Oncology at [address] [phone] 05/28/2024 9:30 AM EDT Clinical Support Hematology/Oncology at [address] [phone] [facility] [place] [address] documented as of this encounter Procedures Procedure Name Priority Date/Time Associated Diagnosis Comments NM PET CT SKULL BASE TO MID-THIGH ([facility]) Routine 01/27/2024 1:46 PM EDT Duodenal adenocarcinoma documented in this encounter Results * NM PET CT Skull Base to Mid-thigh (01/27/2024 1:46 PM EDT) [email or web address] WORKSTATION ID [id number] DH RAD Anatomical Region Laterality Modality Positron Emissio n Tomography (PET) Impressions 01/29/2024 1:53 PM EDT 1. ??FDG-avid lesion in the proximal descending duodenum is compatible with duodenal adenocarcinoma. 2. ??Multiple FDG-avid lymph nodes in the left upper neck, unlikely to be related to duodenal lesion, probably inflammatory. Attention on follow-up. Thank you for letting us participate in the care of this patient. ??If you are a health care provider and have any questions regarding this report, please contact the number below. ??For patients who have questions please contact the health patient centered care specialist that requested your imaging first. ? 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 The noncontrast CT was used for anatomic localization and photon attenuation correction of the PET scan. Blood glucose level: 112 (mg/dL) FDG dose: 17.8 mCi COMPARISON: MRI of the abdomen and pelvis 01/26/2024. CT of the abdomen and pelvis 09/23/2022. FINDINGS: HEAD AND NECK: BRAIN AND EXTRA-AXIAL SPACES (WHERE INCLUDED): No abnormal uptake. ORBITS: No abnormal uptake. PARANASAL SINUSES: No abnormal uptake. MASTOIDS: No abnormal uptake. AERODIGESTIVE TRACT: No abnormal uptake. SALIVARY GLANDS: No abnormal uptake. THYROID: No abnormal uptake. VASCULATURE: No abnormal uptake. LYMPH NODES: Moderately avid cluster of 2 subcentimeter left submandibular lymph nodes (station 1B) measuring up to SUVmax 5.6. Moderately avid left Station 2A lymph nodes measuring up to SUVmax 5.6 (image 35). THORAX: LUNGS: No abnormal uptake. PLEURA: No abnormal uptake. AIRWAYS: No abnormal uptake. MEDIASTINUM: No abnormal uptake. HEART AND VASCULATURE: No abnormal uptake. LYMPH NODES: No abnormal uptake. BREASTS/CHEST WALL: No abnormal uptake. ABDOMEN AND PELVIS: LIVER: No abnormal uptake. Fatty liver. BILIARY SYSTEM: No abnormal uptake. Cholecystectomy. PANCREAS: No abnormal uptake. SPLEEN: No abnormal uptake. Mild splenomegaly measuring under 14 cm. ADRENALS: No abnormal uptake. KIDNEYS AND URETERS: No abnormal uptake. URINARY BLADDER: No abnormal uptake. REPRODUCTIVE: No abnormal uptake. GI: Intense uptake in the proximal descending duodenum measuring up to SUVmax 1.9, correlating with soft tissue seen on prior cross-sectional imaging, most likely the patient's primary duodenal adenocarcinoma. OMENTUM, MESENTERY, PERITONEUM, RETROPERITONEUM: No abnormal uptake. VASCULATURE: No abnormal uptake. LYMPH NODES: No abnormal uptake. MUSCULOSKELETAL: No abnormal uptake. Mild uptake in the right hamstring tendon, most likely inflammatory. 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 The noncontrast CTwas used for anatomic localization and photon attenuation correction of thePET scan. Blood glucose level: 112 (mg/dL) FDG dose: 17.8 mCi COMPARISON: MRI of the abdomen and pelvis 01/26/2024. CT of the abdomen and pelvis09/23/2022. FINDINGS: HEAD AND NECK: BRAIN AND EXTRA-AXIAL SPACES (WHERE INCLUDED): No abnormal uptake. ORBITS: No abnormal uptake. PARANASAL SINUSES: No abnormal uptake. MASTOIDS: No abnormal uptake. AERODIGESTIVE TRACT: No abnormal uptake. SALIVARY GLANDS: No abnormal uptake. THYROID: No abnormal uptake. VASCULATURE: No abnormal uptake. LYMPH NODES: Moderately avid cluster of 2 subcentimeter left submandibularlymph nodes (station 1B) measuring up to SUVmax 5.6. Moderately avid leftStation 2A lymph nodes measuring up to SUVmax 5.6 (image 35). THORAX: LUNGS: No abnormal uptake. PLEURA: No abnormal uptake. AIRWAYS: No abnormal uptake. MEDIASTINUM: No abnormal uptake. HEART AND VASCULATURE: No abnormal uptake. LYMPH NODES: No abnormal uptake. BREASTS/CHEST WALL: No abnormal uptake. ABDOMEN AND PELVIS: LIVER: No abnormal uptake. Fatty liver. BILIARY SYSTEM: No abnormal uptake. Cholecystectomy. PANCREAS: No abnormal uptake. SPLEEN: No abnormal uptake. Mild splenomegaly measuring under 14 cm. ADRENALS: No abnormal uptake. KIDNEYS AND URETERS: No abnormal uptake. URINARY BLADDER: No abnormal uptake. REPRODUCTIVE: No abnormal uptake. GI: Intense uptake in the proximal descending duodenum measuring up toSUVmax 1.9, correlating with soft tissue seen on prior cross-sectional imaging,most likely the patient's primary duodenal adenocarcinoma. OMENTUM, MESENTERY, PERITONEUM, RETROPERITONEUM: No abnormal uptake. VASCULATURE: No abnormal uptake. LYMPH NODES: No abnormal uptake. MUSCULOSKELETAL: No abnormal uptake. Mild uptake in the right hamstring tendon, mostlikely inflammatory. IMPRESSION 1. FDG-avid lesion in the proximal descending duodenum is compatiblewith duodenal adenocarcinoma. 2. Multiple FDG-avid lymph nodes in the left upper neck, unlikely to berelated to duodenal lesion, probably inflammatory. Attention on follow-up. Thank you for letting us participate in the care of this patient. If youare a health care provider and have any questions regarding this report,please contact the number below. For patients who have questions please contactthe health patient centered care specialist that requested your imaging first. Electronically signed by: Juan Oneil [facility] ([phone]),at 01/29/2024 1:53 PM Jaki Phillips DO IMG PET ORDERABLES documented in this encounter Visit Diagnoses Diagnosis Duodenal adenocarcinoma Malignant neoplasm of duodenum documented in this encounter Administered Medications Inactive Administered Medications - up to 3 most recent administrations Medication Order MAR Action Action Date Dose Rate Site fludeoxyglucose (F-18) FDG injection 0-20 mCi 0-20 mCi, Intravenous, ONCE PRN, 1 dose, Starting on 01/27/24 at 1232, Until 01/27/24 at 1221, Per Protocol, Radiology Contrast, Routine Given 01/27/2024 12:21 PM EDT 17.8 mCi documented in this encounter Care Teams Yardage Tufting Machine Operator Relationship Specialty Start Date End Date Olga Hoffman APRN [address] [place] [address] PCP - General Family Medicine 10/30/22 documented as of this encounter
--- OUTSIDE RECORDS SUMMARY | 2024-05-21 01:12 | XMS_ITS | Encounter Summary ---
[place] [address] Care Team Providers Care Extruder Tender Name Role Phone Olga Hoffman APRN Primary Care Provider [phone] Reason for Referral * Consultation (Routine) - Authorized Specialty Diagnoses / Procedures Referred By Janak holland Referred To Contact Plastic Surgery Diagnoses Hypertrophy of breast GYNECOMASTIA Olga Hoffman APRN [address] [place] [address] [facility] [place] [place] Plastic Surg [address] [place] [phone] Referral ID Status Reason Start Date Expiration Date Visits Requested Visits Authorized [id number] Authorized Consult, Test & Treat PCP Updated and/or Approved 12/05/2023 06/06/2024 6 6 Encounter Details Date Type Department Care Team (Latest Contact Info) Description 12/11/2023 Transcribe Orders eDH Incoming Referrals [phone] Olga Hoffman APRN [address] [place] [address] Hypertrophy of breast Social History Tobacco Use Types Packs/Day Years [...] a senior living (including now)? No 01/23/2023 Sex and Gender Information Value Date Recorded Sex Assigned at Not on file Gender Identity Not on file Sexual Orientation Not on file documented as of this encounter Plan of Treatment Upcoming Encounters Date Type Department Care Team (Late st Contact Info) Description 05/21/2024 9:00 AM EDT Office [place] [address] Nighat López MD [facility] [place] [address] 05/28/2024 8:00 AM EDT Office Visit Hematology/Oncology at [address] [phone] Rodriguez Fowler MD [facility] [place] [address] Sherry Cedillo APRN [address] [place] [address] DR HEMATOLOGY AND ONCOLOGY [place], [place] [id number] 05/28/2024 8:30 AM EDT Infusion Hematology Oncology at [address] [phone] 05/28/2024 9:30 AM EDT Clinical Support Hematology/Oncology at [address] [phone] Leah Rose, RD [facility] DR [place] [address] Scheduled Referrals Name Type Priority Associated Diagnoses Orde r Schedule Referral to Plastic Surgery Outpatient Referral Routine Hypertrophy of breast Ordered: 12/11/2023 documented as of this encounter Visit Diagnoses Diagnosis Hypertrophy of breast documented in this encounter Care Teams Extruder Tender Relationship Specialty Start Date End Date Olga Hoffman APRN [address] [place] [address] PCP - General Family Medicine 10/30/22 documented as of this encounter
--- OUTSIDE RECORDS SUMMARY | 2024-05-21 01:12 | XMS_ITS | Encounter Summary ---
Author Organization [facility] Address One [facility] [place] [address] Care Team Providers Care Burlap Spreader Name Role Phone Olga Hoffman APRN Primary Care Provider [phone] Encounter Details Date Type Department Care Team (Late st Contact Info) Description 01/26/2024 Ancillary Procedure Radiology Library at [place] [phone] Olga Hoffman APRN [address] [place], [place] [id number] Social History Tobacco Use Types Packs/Day Years [...] 9:00 AM EDT Office Visit [place] [address] Nighat López MD [facility] [place] [address] 05/28/2024 8:00 AM EDT Office Visit Hematology/Oncology at [address] [phone] Rodriguez Fowler MD [facility] [place] [address] Sherry Cedillo APRN [address] [place] [address] DR HEMATOLOGY AND ONCOLOGY [place], [place] [id number] 05/28/2024 8:30 AM EDT Infusion Hematology Oncology at [address] [address] 05/28/2024 9:30 AM EDT Clinical Support Hematology/Oncology at [address] [phone] [facility] [place] [address] documented as of this encounter Procedures Procedure Name Priority Date/Time Associated Diagnosis Comments FILM LIBRARY STORAGE ONLY MR ABDOMEN Routine 01/26/2024 12:00 AM EDT documented in this encounter Results * Film Library- Storage Only MR Abdomen (01/26/2024 12:00 AM EDT) Narrative ITA - 01/27/2024 10:32 AM EDT This exam is auto-finalizing. It's purpose is for storage only. Olga Hoffman APRN IMMer FILM LIBRARY ORDERABLES [place], [place] documented in this encounter Visit Diagnoses Not on filedocumented in this encounter Care Teams Burlap Spreader Relationship Specialty Start Date End Date Olga Hoffman APRN [address] [place] [address] PCP - General Family Medicine 10/30/22 documented as of this encounter
--- OUTSIDE RECORDS SUMMARY | 2024-05-21 01:12 | XMS_ITS | Encounter Summary ---
Author Organization [facility] Address One [facility] [place] [address] Care Team Providers Care Electrocardiograph Operator Name Role Phone Olga Hoffman APRN Primary Care Provider [phone] [phone] Encounter Details Date Type Department Care Team (Latest Contact Info) Description 01/20/2024 Travel Social History Tobacco Use Types Packs/Day [...] place to sleep or slept in a fpc (including now)? No 01/23/2023 Sex and Gender Information Value Date Recorded Sex Assigned at Not on file Gender Identity Not on file Sexual Orientation Not on file documented as of this encounter Plan of Treatment Upcoming Encounters Date Type Department Care Team (Late st Contact Info) Description 05/21/2024 9:00 AM EDT Office [place] [address] Nighat López MD [facility] [place] [address] 05/28/2024 8:00 AM EDT Office Visit Hematology/Oncology at [address] [phone] Rodriguez Fowler MD [facility] [place] [place] [address] Sherry Cedillo APRN [address] [place] [address] DR HEMATOLOGY AND ONCOLOGY [place], [place] [id number] 05/28/2024 8:30 AM EDT Infusion Hematology Oncology at [address] [phone] 05/28/2024 9:30 AM EDT Clinical Support Hematology/Oncology at [address] [phone] [facility] DR HEMATOLOGY [place] [address] documented as of this encounter Visit Diagnoses Not on filedocumented in this encounter Care Teams Electrocardiograph Operator Relationship Specialty Start Date End Date Olga Hoffman APRN [address] [place] [address] PCP - General Family Medicine 10/30/22 documented as of this encounter
--- OUTSIDE RECORDS SUMMARY | 2024-05-21 01:12 | XMS_ITS | Encounter Summary ---
Author Organization [facility] Address One [facility] [place] [address] Care Team Providers Care Lotus Notes Administrator Name Role Phone Olga Hofmfan APRN Primary Care Provider [phone] [phone] Encounter Details Date Type Department Care Team (Latest Contact Info) Description 01/27/2024 Travel Social History Tobacco Use Types Packs/Day [...] 9:00 AM EDT Office [place] [address] Nighat López MD [facility] [place] [address] 05/28/2024 8:00 AM EDT Office Visit Hematology/Oncology at [address] [phone] Rodriguez Fowler MD [facility] [place] [address] Sherry Cedillo APRN [address] [place] [address] DR HEMATOLOGY AND ONCOLOGY [place], [place] [id number] 05/28/2024 8:30 AM EDT Infusion Hematology Oncology at [address] [phone] 05/28/2024 9:30 AM EDT Clinical Support Hematology/Oncology at [address] [phone] [facility] DR [place] [address] documented as of this encounter Visit Diagnoses Not on filedocumented in this encounter Care Teams Lotus Notes Administrator Relationship Specialty Start Date End Date Olga Hoffman APRN [address] [place] [address] PCP - General Family Medicine 10/30/22 documented as of this encounter
--- OUTSIDE RECORDS SUMMARY | 2024-05-21 01:12 | XMS_ITS | Encounter Summary ---
Author Organization [facility] [place] [address] Care Team Providers Care Iron Caster Name Role Phone Olga Hoffman APRN Primary Care Provider [phone] [phone] Reason for Visit * Reason Comments Advice Only * Consultation (Routine) - Closed Specialty Diagnoses / Procedures Referred By Janak holland Referred To Contact Hematology and Oncology Diagnoses Polycythemia Olga Hoffman APRN [address] [place] [address] [facility] [address] [place] [address] Referral ID Status Reason Start Date Expiration Date V isits Requested Visits Authorized [id number] Closed Consult, Test & Treat PCP Updated and/or Approved 11/20/2022 11/20/2023 6 6 Encounter Details Date Type Department Care Team (Late st Contact Info) Description 01/24/2023 10:00 AM EDT Office Visit Hematology [place] [address] Veena Cunningham MD [facility] DR [place] [address] Erythrocytosis; Microcytosis Social History Tobacco Use Types [...] Sign Reading Time Taken Comments Blood Pressure 163/109 01/24/2023 9:50 AM EDT Pulse 79 01/24/2023 9:50 AM EDT Temperature 36.3 ??C (97.4 ??F) 01/24/2023 9:50 AM ED T Respiratory Rate 18 01/24/2023 9:50 AM EDT Oxygen Saturation 97% 01/24/2023 9:50 AM EDT Inhaled Oxygen Concentration - - Weight - - Height - - Body Mass Index - - documented in this encounter Progress Notes * Veena Mckeon MD - 01/24/2023 10:00 AM EDT Images from the original note were not included. HEMATOLOGY CONSULTATION VISIT NOTE DATE OF VISIT : 01/24/23 REFERRING PROVIDER: Dr. Olga Hoffman REASON FOR VISIT: Erythrocytosis and microcytosis. HISTORY OF PRESENT ILLNESS Charles Nick is [...] : 25%, ferritin : 147 INTERIM Hx: In office today, Charles Nick is here for initial consultation. He has know h/o JOSE and and has been using CPAP since 2010. No daytime fatigue or sleepiness. Feelswell rested. Has some fatigue recently since he got a new puppy. He does not smoke. No headaches; has cataracts; Has no feeling in his toes and has pain in his fingers and toes, attributed to his DM and he takes gabapentin. No h/o arterial or venous thrombosis. - No active cardiac/resp/GI issues; Rest of the ROS: Negative PROBLEM LIST Patient Active Problem List Diagnosis Code ??? CKD (chronic kidney disease) stage 3, GFR 30-59 ml/min N18.30 ??? Obesity E66.9 SURGICAL HISTORY: Past Surgical History: Procedure Laterality Date ??? IR BIOPSY LIVER PERCUTANEOUS 01/07/2023 IR Biopsy Liver Percutaneous 01/07/2023 Juan Wright MD [facility] INTERVENTIONL RAD MEDICATIONS Current Outpatient Medications Medication Instructions ??? [...] the Last Year: No ?? Lives in [place] (1hr [place]mts from [facility]) ?? 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 Smoking: No No family history on file. No FH of hematogical disorders , anemia, thalassemia PHYSICAL EXAM VITAL SIGNS: Blood pressure (!) 163/109, pulse 79, temperature 36.3 ??C (97.4 ??F), temperature source Temporal, resp. rate 18, SpO2 97 %. ECOG PS: 0 GENERAL: Charles Nick is a well-appearing 47 y.o. male in no acute distress. HEENT: , no conjunctival pallor , no scleral icterus; Oropharynx : moist , clear, No lesions, No thrush. ENDOCRINE: No thyromegaly palpated. CARDIOVASCULAR: Heart with regular rate and rhythm without S3,S4 or murmurs. PULMONARY: Lungs are clear to auscultation without rales, rhonchi or wheezing. GASTROINTESTINAL: Abdomen soft and non-tender without palpable masses or hepatosplenomegaly. MUSCULOSKELETAL: Neck supple with full ROM. No spine or CVA tenderness. SKIN: No rashes, bruises or petechiae. LYMPH: No palpable cervical, axillary, inguinal lymphadenopathy. NEUROLOGICAL: No focal neurological deficits; EXT: No peripheral edema. PSYCHIATRIC: normal affect and mood LABORATORY From today - Pending. RADIOLOGY - I reviewed all the pertinent available imaging. ASSESSMENT & PLANS Charles Nick is a [...] of the2 blood cells are normal. JAK2 was negative for V617F mutation. I discussed the differential for erythrocytosis with Mr. Charles Nick. Erythrocytosis can be primary, as seen in myeloproliferative neoplasms such as Polycythemia vera etc or it can be secondary to hypoxia (ex: sleep apnea, cardiopulmonary problems, morbid obesity), chronic exposure to carbon monoxide (ex: smoking, COPD etc), Erythropoietin producing tumors and renal lesions, renal artery stenosis etc. I discussed the risk of arterial and venous thrombosis in pts with P.vera and use of ASA and cytoreduction with phlebotomies and hydrea to decreased this risk. I discussed that it is imp to identify and address the underlying cause in pts with reactive erythrocytosis. He has h/o JOSE, under good control with CPAP. He is not a smoker, does not have lung disease or other risk factors for hypoxia. So, we will do the work up in a step barahona fashion to differentiate if it is primary vs 2ry polycythemia. We will check Epo level and non V617F JAK2 mutations today. Microcytosis - We discussed the differential. We will check retic count and iron studies. History is not suggestive of lead exposure or thalassemias. . # High BPs - reports h/o white coat syndrome. Home BPs run in the normal range IN SUMMARY: - Labs today - TH visit in 2 weeks I reviewed my impression and recommendations with Charles Nick and answered all the questions.. Pt agreed with the plan. Thank you Olga Bejarano for asking us to see this very pleasant patient. Please don't hesitate to contact me if you'd like to discuss this patient's situation further. Veena Mckeon MD [facility] CC: YOCASTA Briones Kathryn H documented in this encounter Plan of Treatment Upcoming Encounters Date Type Department Care Team (Late st Contact Info) Description 05/21/2024 9:00 AM EDT Office Visit [place] [address] Nighat López MD [facility] [place] [address] 05/28/2024 8:00 AM EDT Office Visit Hematology/Oncology at [address] [phone] Rodriguez Fowler MD [facility] [place] [address] Sherry Cedillo TIN POT OPERATOR [address] [place] [address] DR HEMATOLOGY AND ONCOLOGY [place], [place] [phone] 05/28/2024 8:30 AM EDT Infusion Hematology Oncology at [address] [phone] 05/28/2024 9:30 AM EDT Clinical Support Hematology/Oncology at [address] [phone] [facility] [place] [address] Scheduled Orders Name Type Priority Associated Diagnoses Orde r Schedule CBC (with Diff) Lab Routine Erythrocytosis Microcytosis Expected: 01/24/2023, Expires: 02/24/2023 documented as of this encounter Results * Iron and TIBC (01/24/2023 10:42 AM EDT) Pathologist [facility] Iron 67 45 - 160 mcg/dL [facility] TIBC 304 250 - 450 mcg/dL [facility] Iron Saturation 22 20 - 50 % [facility] Blood 01/24/2023 10:4 2 AM EDT 01/24/2023 10:51 AM EDT Narrative Resulting Agency Comment Spec In Lab Veena Cunningham MD CHEMISTRY ORDERA BLES Performing Organization Address City/[facility]/ZIP Co de Phone Number [facility] [place] [address] * (ABNORMAL) Reticulocyte Count (01/24/2023 10:42 AM EDT) [facility] Reticulocyte % 1.0 0.7 - 2.6 % [facility] Retic Abs # 0.060 0.030 - 0.120 x10(6)/[facility] LABORATORY Immature Retic% 5.7 0.0 - 15.6 % [facility] Reticulated Hgb 27.7(L) 31.3 - 40.2 pg [facility] Blood 01/24/2023 10:4 2 AM EDT 01/24/2023 10:51 AM EDT Narrative Resulting Agency Comment Spec In Lab Veena Cunningham MD HEMATOLOGY ORDER DEDRA Performing Organization Address City/[facility]/ZIP Co de Phone Number [facility] [place] [address] * Ferritin (01/24/2023 10:42 AM EDT) Pathologist [facility] Ferritin 113 30 - 400 ng/mL [facility] Comment: Pediatric reference ranges not verified at [facility], interpret with caution. Reference ranges for females greater than 50 years of age approach values for men, i.e., 30-400 ng/mL. Blood 01/24/2023 10:4 2 AM EDT 01/24/2023 10:51 AM EDT Narrative Resulting Agency Comment Spec In Lab Veena Cunningham MD CHEMISTRY MEHUL HURD [facility] [address] * JAK2 V617F, Exon12, and Other Non-V617F Mut (01/24/2023 10:42 AM EDT) Somatic JAK2 Result Negative [facility] Somatic JAK2 Interp JAK2 Somatic Variant Genotyping Specimen type: ??Blood Indication: ??Erythrocytosis RESULT: ??NEGATIVE for JAK2 gene sequence variants, including p.V617F or others in exons 12-15. INTERPRETATION: ??This negative JAK2 study makes a diagnosis of polycythemia vera extremely unlikely, but the absence of a JAK2 variant does not exclude other myeloproliferative neoplasms. Approximately 95-98% of polycythemia vera (PV) cases are associated with the JAK2 p.V617F variant, and the remaining 2-5% of PV cases are thought to be accounted for by non-V617F variants within exons 12-15 of JAK2. JAK2 p.V617F also accounts for 50-60% of essential thrombocythemia (ET) and primary myelofibrosis (PMF) cases. JAK2 non-V617F variants are not found in ET or PMF. Correlation with the clinicopathologic presentation and any other ancillary testing is required. METHOD: ??Genomic DNA was extracted from blood and analyzed with the [employer] Myeloid sequencing assayTM. Amplicon-based library preparation, template preparation and chip-loading utilize the GROUNDFLOOR, and sequencing is performed on the [employer] System. Reads from JAK2 exons 12-15 are analyzed for single nucleotide variants, deletions, and insertions. Base Calling and alignment is performed on the People Pattern Suite People Pattern Suite 5.12.0.Variant calling is performed on the [employer] Pure Culture Operator version 5.14. LIMITATIONS AND DISCLAIMERS: ??The analytic sensitivity of this test permits detection sensitivity of 5% of the total JAK2 DNA for single nucleotide variants, deletions, and insertions. A minimum total read depth of 500 is achieved. Insertions and deletions will not be called in homopolymer regions >= 8bp. Detected variants are interpreted in context of a somatic acquisition. This is not a quantitative assay, and it should not be used for detection of minimal residual disease. This test was developed and its performance characteristics determined by the [facility] ([facility]) Laboratory at [facility]. It has not been cleared or approved by the FDA. The laboratory is regulated under CLIA as qualified to perform high-complexity testing. This test is used for clinical purposes. It should not be regarded as investigational or for research. [facility] Comment: [VERIFIED DATE]02.04.23 Verified By:Neptali Claixto, Mohan Franks Molecular Pathologist (Electronic Signature) Blood 01/24/2023 10:4 2 AM EDT 01/24/2023 1:39 PM EDT Narrative Resulting Agency Comment Spec In Lab Veena Cunningham MD MOLECULAR ORDERA BLES Performing Organization Address City/[facility] Co de Phone Number [facility] [place] [address] * Erythropoietin Level (01/24/2023 10:42 AM EDT) Erythropoietin (JANUARY) 11.8 2.6 - 18.5 mIU/mL [facility] Comment: Test Performed by: [place] [address] Wire Wrapper Machine Operator: Adam Gifford M.D. Ph.D.; CLIA# [id number] Blood 01/24/2023 10:4 2 AM EDT 01/24/2023 12:49 PM EDT Narrative Resulting Agency Comment Spec In Lab Veena Cunningham MD LAB SEND OUT ORD ERABLES Performing Organization Address [facility] Co de Phone Number [facility] [address] documented in this encounter Visit Diagnoses Diagnosis Erythrocytosis Polycythemia, secondary Microcytosis Other abnormality of red blood cells documented in this encounter Care Teams Iron Caster Relationship Specialty Start Date End Date Olga Hoffman APRN [address] [place] [address] PCP - General Family Medicine 10/30/22 documented as of this encounter
--- OUTSIDE RECORDS SUMMARY | 2024-05-21 01:12 | XMS_ITS | Encounter Summary ---
Author Organization [facility] [place] [address] Care Team Providers Care Office Inspector Name Role Phone DaltonAbigailOlgaevy Bell APRN Primary Care Provider [phone] [phone] Encounter Details Date Type Department Care Team (Late st Contact Info) Description 02/26/2024 2:35 PM EDT Ancillary [place] [address] Rudi Hernandez MD [facility] [place] [address] Social History Tobacco Use Types Packs/Day Years [...] in a mcc (including now)? No 01/23/2023 Sex and Gender Information Value Date Recorded Sex Assigned at Not on file Gender Identity Not on file Sexual Orientation Not on file documented as of this encounter Plan of Treatment Upcoming Encounters Date Type Department Care Team (Late st Contact Info) Description 05/21/2024 9:00 AM EDT Office [place] [address] Nighat López MD [facility] [place] [address] 05/28/2024 8:00 AM EDT Office Visit Hematology/Oncology at [address] [phone] Rodriguez Fowler MD [facility] [address] Sherry Cedillo APRN [address] [place] [address] DR HEMATOLOGY AND ONCOLOGY [place], [place] [phone] 05/28/2024 8:30 AM EDT Infusion Hematology Oncology at [address] [phone] 05/28/2024 9:30 AM EDT Clinical Support Hematology/Oncology at [address] [phone] [facility] DR [place] [address] documented as of this encounter Procedures Procedure Name Priority Date/Time Associated Diagnosis Comments FILM LIBRARY STORAGE ONLY CT ABDOMEN AND PELVIS Routine 02/26/2024 2:34 PM EDT documented in this encounter Results * Film Library- Storage Only CT Abdomen & Pelvis (02/26/2024 2:34 PM EDT) Narrative [facility] - 02/26/2024 2:34 PM EDT This exam is auto-finalizing. It's purpose is for storage only. Rudi Hernandez MD G FILM LIBRARY ORD ERABLES [place], [place] documented in this encounter Visit Diagnoses Not on filedocumented in this encounter Care Teams Office Inspector Relationship Specialty Start Date End Date Olga Hoffman APRN [address] [place] [address] PCP - General Family Medicine 10/30/22 documented as of this encounter
--- OUTSIDE RECORDS SUMMARY | 2024-05-21 01:12 | XMS_ITS | Encounter Summary ---
Author Organization [facility] Address One [facility] [place] [address] Care Team Providers Care Laborer Shellfish Processing Name Role Phone Olga Hoffman APRN Primary Care Provider +1 [phone] Encounter Details Date Type Department Care Team (Late st Contact Info) Description 01/26/2024 12:05 AM EDT Ancillary Procedure [place] [address] Olga Hoffman APRN [address] [place] [address] Social History Tobacco Use Types Packs/Day Years [...] 9:00 AM EDT Office [place] [address] Nighat López MD [facility] [place] [address] 05/28/2024 8:00 AM EDT Office Visit Hematology/Oncology at [address] [phone] Rodriguez Fowler MD [facility] [place] [address] Sherry Cedillo APRN [address] [place] [address] DR HEMATOLOGY AND ONCOLOGY [place], [place] [phone] 05/28/2024 8:30 AM EDT Infusion Hematology Oncology at [address] [phone] 05/28/2024 9:30 AM EDT Clinical Support Hematology/Oncology at [address] [phone] [facility] DR [place] [address] documented as of this encounter Procedures Procedure Name Priority Date/Time Associated Diagnosis Comments FILM LIBRARY STORAGE ONLY MR PELVIS Routine 01/26/2024 12:05 AM EDT documented in this encounter Results * Film Library- Storage Only MR Pelvis (01/26/2024 12:05 AM EDT) Narrative [facility] - 01/27/2024 10:32 AM EDT This exam is auto-finalizing. It's purpose is for storage only. Olga Hoffman APRN IMMer FILM LIBRARY ORDERABLES [place], [place] documented in this encounter Visit Diagnoses Not on filedocumented in this encounter Care Teams Laborer Shellfish Processing Relationship Specialty Start Date End Date Olga Hoffman APRN [address] [place] [address] PCP - General Family Medicine 10/30/22 documented as of this encounter
--- OUTSIDE RECORDS SUMMARY | 2024-05-21 01:12 | XMS_ITS | Encounter Summary ---
Author Organization [facility] [place] [address] Care Team Providers Care Emergency Manager Name Role Phone Dalton Olgaevy Bell APRN Primary Care Provider [phone] Reason for Visit * Auth/Cert (Routine) Specialty Diagnoses / Procedures Referred By Contac t Referred To Contact Diagnoses Malignant neoplasm of duodenum DUODENUM ADENCARCINOMA Procedures PRO PART REMV PANC, PROX+REMV DUOD+ANAST @THOMPSON PROCEDURE (WRVU 52.84) Rudi Hernandez MD [facility] [place] [address] [facility] Referral ID Status Reason Start Date Expiration Date Visits Re quested Visits Authorized [id number] 1 1 Encounter Details Date Type Department Care Team (Late st Contact Info) Description 03/01/2024 7:30 AM EDT - 03/01/2024 4:58 PM EDT Surgery [place] [address] Rudi Hernandez MD [facility] [place] [address] @THOMPSON PROCEDURE (WRU 52.84) Social History Tobacco Use Types Packs/Day Years Used Date Smoking Tobacco: Never Smokeless Tobacco: Never Alcohol Use Standard Drinks/Week Comments Not Currently 0 (1 standard drink = 0.6 oz pur e alcohol) [facility] Utilities Answer Date Recorded In the [...] in a intermediate (including now)? 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 Operations/Major Procedures: [...] Hospital Course: Charles Nick was admitted to [facility] on 03[facility]01[facility]2024 [facility] Same Day [facility]. He [...] Fluid boluses for oliguria, Cr WNL. DM FISH SEINER recommendedstarting Lantus 8u daily. Seen by wound [...] gauge x 1/4 Needle 1 each by [facility]Non-Drug; Combo Route) route 2 times daily. Generic drug: Insulin [place] (Disposable) 1 each Quantity: 300 each Refills: [...] Center 03/17/2024 9:30 AM Silvio Gilbert MD [facility] PLAS 4M [facility] 03/17/2024 10:[address] [facility] SURG [facility] 03/24/2024 2:00 PM Rudi Hernandez MD [facility] SURG [facility] Outpatient Services/Studies: CBC (with Diff) Standing Status: [...] the nurses in the Surgery Clinic at [phone]. - During the night time hours call the hospital carpet yarn winder operator [phone] and ask to speak to the general surgery resident econometrician. Instructions for when you are home: Diet: Ok to eat a regular diet as tolerated. It is important to try to eat as much calories and protein as possible during recovery to aid in healing. You frequently may feel full easily or even havenausea. Take small meals at first and pace yourself. You may supplement your diet with nutritional shakes/drinks (Ensure, Baldwin Instant Breakfast, Boost) if possible. Enzymes: You [...] until you are seen by Dr. Delacruz [facility] for your first postop visit. [...] Incision: The skin incision(s) is closed with: [place] Usually the edd are removed anywhere from [...] has been scheduled with Dr. Delacruz's office [phone]. In most cases Dr. Delacruz will order blood work to be done on the day of your post op clinic appointment. This decision is made on a rrks-su-fpfu basis so ask if this is necessary and plan to come to [facility] pr ior to the appointment to get the blood work done in 3L as instructed. - Of course, if you are being discharged on a weekend and Dr. Delacruz's office is closed then call the office [phone] first thing Friday. Future Appointments Date Time Provider Department Center 03/17/2024 9:30 AM Silvio Gilbert MD [facility] PLAS 4M [facility] 03/17/2024 10:[address] [facility] SURG [facility] 03/24/2024 2:00 PM Rudi Hernandez MD [facility] SURG [facility] You have been scheduled for a follow-up with our outpatient control system computer scientist Donna Dewey RD to review your nutrition postoperatively - this has been coordinated to occur the same day you are here seeing plastic surgery. I reached out to your child specialist Dr. Maxwell's office to request follow-up with [...] day it is best to call the 4L General Surgery Clinic to speak with the surgery nurses.The number is [phone]. - During the night call the [facility] carpet yarn winder operator and ask to speak to the surgery resident econometrician for general surgery. General Instructions Diabetes Discharge [...] AM Silvio Gilbert MD Plastic Surgery at [facility] Arrive at: Type Soldering Machine Tender Area 4M [phone] 03/17/2024 10:[address] General Surgery at [facility] Arrive at: Type Soldering Machine Tender Area 4L [phone] 03/24/2024 2:00 PM Rudi Hernandez MD General Surgery at [facility] Arrive at: Type Soldering Machine Tender Area 4L [phone] Please dispose of unused excess opioids before your appointment or bring them with you to the appointment and we will help you dispose of them correctly. Future Orders Complete By Expires CBC (with Diff) [ODP243 Custom] 03/24/2024 03/08/2025 Process Instructions: INCLUDES: WBC, RBC, Hgb, Hct, Platelets, RBC Indices and Differential Scheduling Instructions: Comments: Questions: Comprehensive metabolic panel (non-fasting) [LAB17 Custom] 03/24/2024 (Approximate) 03/08/2025 Process Instructions: INCLUDES: Calcium, T Protein, Albumin, AST, ALT, Alk Phos, T Bili, BUN, Creat, GFR, Glucose, Lytes. Scheduling Instructions: Comments: Questions: Magnesium [QBG510 Custom] 03/24/2024 03/08/2025 Process Instructions: Scheduling Instructions: Comments: Questions: Phosphorus [WNW892 Custom] 03/24/2024 09/23/2024 Process Instructions: Scheduling Instructions: Comments: Questions: Discharge References/Attachments: Discharge References/Attachments None Follow-up Recommendations for Providers: Medication changes: Insulin Lantus 10 u nightly added due to whipple procedure Diet changes: No change has been made to diet CC: Olga Hoffman, DRYWALL FINISHING FOREMAN [phone] Signed: Tiffanie Pabon MD Surgical Oncology Service Team Pager #[phone] 03/08/2024 1:48 PM For questions regarding this document or issues relating to this hospitalization on the Surgical Oncology Service, please contact Rudi Hernandez MD's office at [phone] documented in this encounter Discharge Instructions * [...] the nurses in the Surgery Clinic at [phone]. - During the night time hours call the hospital carpet yarn winder operator [phone] and ask to speak to the general surgery resident econometrician. Instructions for when you are home: Diet: Ok to eat a regular diet as tolerated. It is important to try to eat as much calories and protein as possible during recovery to aid in healing. You frequently may feel full easily or even havenausea. Take small meals at first and pace yourself. You may supplement your diet with nutritional shakes/drinks (Ensure, [place] Instant Breakfast, Boost) if possible. Enzymes: You [...] until you are seen by Dr. Delacruz [facility] for your first postop visit. [...] has been scheduled with Dr. Delacruz's office [phone]. In most cases Dr. Delacruz will order blood work to be done on the day of your post op clinic appointment. This decision is made on a jerc-wr-gudl basis so ask if this is necessary and plan to come to [facility] pr ior to the appointment to get the blood work done in 3L as instructed. - Of course, if you are being discharged on a weekend and Dr. Delacruz's office is closed then call the office [phone] first thing Friday. Future Appointments Date Time Provider Department Center 03/17/2024 9:30 AM Silvio Gilbert MD [facility] PLAS 4M [facility] 03/17/2024 10:[address] [facility] SURG [facility] 03/24/2024 2:00 PM Rudi Hernandez MD [facility] SURG [facility] You have been scheduled for a follow-up with our outpatient control system computer scientist Donna Dewey RD to review your nutrition postoperatively - this has been coordinated to occur the same day you are here seeing plastic surgery. I reached out to your child specialist Dr. Maxwell's office to request follow-up with [...] speak with the surgery nurses.The number is [phone]. - During the night call the [facility] carpet yarn winder operator and ask to speak to the surgery resident econometrician for general surgery. documented in this encounter Medications at Time of Discharge Medication Sig Dispensed Refills Start Date End Date potassium chloride ER (Klor-Con, K-Tab) 10 mEq ER tablet Take 1 tablet by mouth 2 times daily. 30 tablet 03/08/2024 Insulin [place], Disposable, (BD Ultra-Fine Micro Pen Needle) 32 gauge x 1/4 Needle 1 each by [facility].(Non-Drug; Combo Route) route 2 times daily. 300 [...] Biopsy Liver Percutaneous 01/07/2023 Juan Wright MD [facility] INTERVENTIONL RAD PRO PART REMV PANC, PROX+REMV DUOD+ANAST N/A 03/01/2024 @WHIPPLE PROCEDURE (WRVU 52.84) performed by Rudi Hernandez MD at [facility] MAIN OR PRO TRANSFER SKIN PEDICLE FLAP N/A 03/01/2024 TRANSFER, INTERMEDIATE, ANY PEDICLE FLAP, ANY LOCATION (WRVU 4.77) performed by Rudi Hernandez MD at [facility] MAIN OR Social History:Home set-up: Lives [...] met. RN updated post PT session. Assessment: Charlessara Nick was seen today for physical therapy [...] for this consult. MIKI HARRELL, PT Pager: [phone] Physical Therapy Inpatient Rehabilitation Department * Diane [...] ; Age: 4 1975; 48 y.o. Room/Bed: [address] [place] [address] Today's Date: 03/07/24 ID: Charles Nick is [...] Fluid boluses for oliguria, Cr WNL. DM FISH SEINER recommendedstarting Lantus 8u daily. Seen by wound [...] Pabon MD Surgical Oncology Service Team Pager #[phone] 03/07/24 8:33 AM * Diane Sexton MD [...] ; Age: 4 1975; 48 y.o. Room/Bed: [facility]/404-B Today's Date: 03/06/24 ID: Charles Nick is [...] Fluid boluses for oliguria, Cr WNL. DM FISH SEINER recommendedstarting Lantus 8u daily. Seen by wound [...] Pabon MD Surgical Oncology Service Team Pager #[phone] 03/06/24 8:35 AM I saw, examined, and [...] - 12.5 sec Final Operative Procedures: Procedure(s): @IPPLE PROCEDURE (WRVU 52.84) TRANSFER, INTERMEDIATE, ANY PEDICLE [...] your insulin doses adjusted. Isidra Hickey APRN, DNP, -[facility] Inpatient Diabetes Management Team Team pager #[phone] * Gary Mtz PA - 03/05/2024 9:58 [...] Fluid boluses for oliguria, Cr WNL. DM FISH SEINER recommendedstarting Lantus 8u daily. Seen by wound care for foot ulcer present on admission and followed by outpatient podiatry - treating plantar ulcer with vreoney, leaving hallux open to air. 03/03 POD2: [...] Vj Joya Surgical Oncology Service Team Pager #[phone] 03/05/24 9:58 AM I saw, examined, and [...] MS 03/05/2024 4:46 PM [id number] * Kristen Meza, YOCASTA - 03/05/2024 7:27 AM EDT Follow Up [...] Diet CC Monitoring: Q4 Kristen Meza APRN [facility] Endocrinology Diabetes Management Pager [phone] Weekends please page [phone] * Miki Harrlel, PT - 03/04/2024 1:20 PM EDT 03/04/24 [...] ; Age: 4 1975; 48 y.o. Room/Bed: [address] [place] [address] Today's Date: 03/04/24 ID: Charles Nick is [...] Fluid boluses for oliguria, Cr WNL. DM FISH SEINER recommendedstarting Lantus 8u daily. Seen by wound care for foot ulcer present on admission and followed by outpatient podiatry - treating plantar ulcer with veroney, leaving hallux open to air. 03/03 POD2: [...] fatty liver disease, type 2 diabetes on [facility], and a newly diagnosed duodenal adenocarcinoma who [...] JULIO Burgess Surgical Oncology Service Team Pager #[phone] 03/04/24 12:09 PM Associated attestation - Rudi [...] as a scribe for Dr. Mac Holguin. Customer Security Clerk Patient seen and examined on daily rounds. I agree with the above assessment and plan. 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 PLAN Lantus:8--> ADJUSTED to 10 units Lispro for correction q 4 hours based on a correction factor of 40 Diet Clear Liquid Monitoring: Q4 Discharge considerations: Open to adding back insulin at discharge CGM for discharge Kristen Meza APRN [facility] Endocrinology Diabetes Management Pager [phone] Weekends please page [phone] 35 minutes were spent over the course [...] OOB. PT to follow tomorrow. * Kristen Meza, DRYWALL FINISHING FOREMAN - 03/03/2024 3:01 PM EDT Images from [...] Clear liquid Monitoring: Q4 Kristen Meza APRN [facility] Endocrinology Diabetes Management Pager [phone] Weekends please page [phone] 35 minutes were spent over the course [...] 3.9 5.0 CL 103 101 103 CO2 BUN 11 16 11 CREATININE 0.79* 1.16 [...] Pabon MD Surgical Oncology Service Team Pager #[phone] 03/03/24 2:06 PM * Ezio, Mac De [...] been removed and hecan tolerate oral analgesics. ICOLLIN, RN, have performed the documentation for this encounter in the presence of and acting as a scribe for Dr. Mac Holguin. Customer Security Clerk Patient seen on daily rounds. I agree with the above assessment and plan. Fantastic analgesia with epidural. Mac Holguin MD [facility] [facility] Nurse: Collin Vallecillo RN Resident:: Juan [...] Biopsy Liver Percutaneous 01/07/2023 Juan Wright MD [facility] INTERVENTIONL RAD Social History:Home set-up: Lives [...] for evaluation today. Pain: well controlled with SUBCONTRACT MANAGER/epidural Vital Signs / Cardiopulmonary: SpO2: 95% on [...] for this consult. MIKI HARRELL, PT Pager: [phone] Physical Therapy Inpatient Rehabilitation Department 2017 PT [...] 1975; 48 y.o. Room/Bed: 404/404-B Today's Date: 03/02/24 ID: Charles Nick is [...] to LCWS for today. OOB/ambulate/PT/OT. Appreciate DM FISH SEINER recommendations for his post-Whipple hyperglycemia in the [...] JULIO Burgess Surgical Oncology Service Team Pager #[phone] 03/02/24 3:24 PM * Violeta Manley RN - 03/02/2024 3:15 PM EDT Pt arrived to 404B around 1445. Connected to [employer], VSS on RA. NG to LCWS. LR 1L bolus initiated. Epidural remains in place. Abd dressing w/ spotting, not outside marked areas. BASIA to bulb suction. See flowsheets for full assessment. * Miki Harrell, PT - 03/02/2024 2:49 PM EDT 03/02/24 1449 Evaluation & Treatment Document Type contact Total [...] assessment and plan Mac Holguin MD [facility] Nurse: Robert Pena RN Resident:: Juan Michelle [...] Kim MD 03/01/2024 Surgical Oncology, Team Pager [phone] * Roxie Rascon RN - 03/01/2024 9:10 [...] applied, alarms set and audible. Airway maintained. 0: Handoff to GRETCHEN Faustin. documented in this [...] fatty liver disease, type 2 diabetes on [facility], with a newly diagnosed duodenal adenocarcinoma. He [...] and Plan: 48 y.o. male presents for rhodes. Latonia Red MD 03/01/24 documented in this [...] none Patient is insured through: Primary Insurance: [employer] Payor: [employer] / Plan: [facility] PPO / Product Type: *No Product type* / Secondary Insurance: N/A Prescription Coverage: Yes This plan was formulated with input from patient, and team. All are in agreement with plan. JACKIE Mcguire, vessel builder of Care Management Pager [phone] * Plan of Care - Nahomi Toussaint [...] plantar dressing remains CDI, R toe wound AIRLINE PILOT FLIGHT INSTRUCTOR. Midline incision with dressing on middleaspect with [...] and ADLs]: independent Surveillance [continuous indirect monitoring]: Masimo, room near unit station Patient-specific fall prevention [...] via bailey. Bailey care completed this shift. Bailey discontinued and removed this afternoon, DTV at 1500, bladder volume was 86mL at 1600, MD aware. MD requested for another bladder scan at 1700 with a result of 206mL. ordered a straight cath, singer songwriter straight cathed 300mL of urine at 1752. [...] No Patient is insured through: Primary Insurance: [employer] Payor: [facility] / Plan: [facility] PPO / Product Type: *No [...] Anticipated Date of Discharge: 03/07/2024 JACKIE Mcguire, vessel builder of Care Management Pager [phone] * Plan of Care - Katelynn Unger RN - 03/05/2024 4:02 AM EDT OUTCOME [...] as Appropriate) * Plan of Care - Dilam Dominique RN - 03/04/2024 6:06 PM EDT [...] BM this shift, faint BS. Midline incision AIRLINE PILOT FLIGHT INSTRUCTOR,edd intact. Adb BASIA to bulb suction w/ [...] [current deficits]: unfamiliar environment, lines/tubes/drains, generalized weakness, narcotics/SUBCONTRACT MANAGER/epidural, recent surgery, bilat LE baseline numbness Assistance [...] AM EDT OUTCOME EVALUATION NOTE: OUTCOME SUMMARY: 2039-NGT advanced by , now sitting at 60cm. [...] [current deficits]: unfamiliar environment, lines/tubes/drains, generalized weakness, narcotics/SUBCONTRACT MANAGER/epidural, recent surgery, bilat LE baseline numbness Assistance [...] management and to provide a review of retirement diabetes care. Diabetes History: Charles Nick has had diabetes since . Part of this hx was gleaned from Dr Dawson evaluation in 2020 upon referral from [facility]. He was seen briefly in the PACU. [...] found for: HA1C ordered and pending FROM [employer] ([employer] in 2020) has Ha1C screen shots which [...] education: we believe he has had at [facility]-was referred to dr dawson from [place] . 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 (Only good for 180 days) Any patient receiving care in [place] must abide by [place] law. The hierarchy for surrogate decision making [...] (i) The agent with financial power of furnace erector or a conservator appointed in accordance with [...] homeless or living in a intermediate (including now)?: No In the past 12 months has the [employer] gas, oil, or water [employer] threatened to shut off services in your [...] Current DME: none Home Address confirmed as: [address] [place] [phone] Social & Family Supports: All names listed below confirmed with patient as current and correct Extended Emergency Contact Information Primary Emergency Contact: JENELLE SOUZA Address: [address] [place] [address] [facility] [employer] Relation: Life Partner Current [...] Specific Information: none Health/Prescription Coverage: Primary Insurance: [facility] Payor: [facility] / Plan: [facility] PPO / Product Type: *No Product type* / Secondary Insurance: N/A ; Prescription Coverage: Yes Preferred Pharmacy: [facility] [address] [address] [facility] [address] - [place], [place] - [address] [place] [id number] [place] Status: Patient is a : No Primary Care Provider confirmed: Olga Hoffman, DRYWALL FINISHING FOREMAN [phone] Patient/Caregiver Goals of Treatment: Return home with [...] coordination of care as indicated. JACKIE Mcguire, vessel builder of Care Management Pager [phone] * Consult Note - Francine Martinez RN [...] Cover with a Mepilex border. (Medihoney PS# [id number]) Right hallux underside: leave the blister open to air Wound Care Team will follow next week. Discussed plan with: PA: Gary Mtz, secure chat Please contact Francine Martinez RN on secure chat or the wound care team at [phone] or pager [phone] with skin and wound care concerns or questions. Electronically Signed By: Francine Martinez RN * Brief Op Note - Latonia Red MD - 03/01/2024 6:38 PM EDT Brief Operative Note Patient Name: Charles Nick : [id number] MR#: [id number] Case Date: 03/01/2024 Surgeon: Surgeons and Role: [...] Biospecimen to store? No SPECIMEN TO PATHOLOGY [place]: Yellow- pancreatic neck margin, Blue paint- vascular groove, [place]- SMA, Green- bile duct margin DUODENUM ADENCARCINOMA [...] Hernandez MD - 03/01/2024 8:28 AM EDT [facility] Operative Note Patient Name: Charles Nick : [id number] MR#: [id number] Case Date: 03/01/2024 Surgeon: Surgeons and Role: [...] Biospecimen to store? No SPECIMEN TO PATHOLOGY [place]: Yellow- pancreatic neck margin, Blue paint- vascular groove, [place]- SMA, Green- bile duct margin DUODENUM ADENCARCINOMA [...] fatty liver disease, [facility], with a newly diagnosed duodenal adenocarcinoma. [...] ligament of Treitz with a 45 mm shi load. The mesentery was tied off with 2-0 silk ties on the stay side and divided with the harmonic. After we took down. Connective tissue attachments were then able to pass the proximal jejunum and duodenum into the right upper quadrant. We then tented the umbilical tape around the pancreatic neck up replaced a Kellyclamp under the neck and guided 1/4 inch [place] over the Parul clamp. Umbilical tape was [...] was not able to place the 8 [place] [employer] feeding tube into the duct, thus I used a 5 [place] feeding tube which passed easily. I placed [...] used to createthe PJ anastomosis, the 5 [place]an feeding tube was cut to 8 cm [...] were placed with 3-0 silk. A 19 [place] drain was brought into the right abdomen [...] 9:00 AM EDT Office Visit [place] [address] Nighat López MD [facility] [place] [address] 05/28/2024 8:00 AM EDT Office Visit Hematology/Oncology at [address] [phone] Rodriguez Fowler MD [facility] [place] [address] Sherry Cedillo APRN [address] [place] [address] DR HEMATOLOGY AND ONCOLOGY [place], [place] [id number] 05/28/2024 8:30 AM EDT Infusion Hematology Oncology at [address] [address] 05/28/2024 9:30 AM EDT Clinical Support Hematology/Oncology at [address] [address] [facility] HEMATOLOGY [place] [address] documented as of this encounter Procedures Procedure [...] 03/01/2024 9:31 AM EDT TYPE AND SCREEN ([facility]/FABIOLA) STAT 03/01/2024 9:31 AM EDT POCT GLUCOSE Routine 03/01/2024 9:14 AM EDT BLOOD GAS ARTERIAL POC Routine 8:39 AM EDT XR FLUORO NO RAD <1HR - OR USE Routine 03/01/2024 7:45 AM EDT Transfer Skin Pedicle Flap (72087) 03/01/2024 7:42 AM EDT DUODENUM ADENCARCINOMA Part Remv Panc, Prox+Remv Duod+Anast ([id number]) 03/01/2024 7:42 AM EDT 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/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 03/01/2024 7:03 AM EDT documented in this encounter Results * Phosphorus (04/20/2024 12:39 PM EDT) Pathologist [facility] Phosphorus 3.1 2.5 - 4.5 mg/dL 04/20/2024 1:28 PM EDT [facility] Blood VENOUS BLOOD SPECIMEN / Unknown Venipuncture / Unknown 04/20/2024 12:39 PM EDT 04/20/2024 12:39 PM EDT Rudi Hernandez MD CHEMISTRY ORDERABLES [facility] [place] [address] * Magnesium (04/20/2024 12:39 PM EDT) [facility] Magnesium 0.74 0.69 - 1.07 mMol/L 04/20/2024 1:28 PM EDT [facility] Blood VENOUS BLOOD SPECIMEN / Unknown Venipuncture / Unknown 04/20/2024 12:39 PM EDT 04/20/2024 12:39 PM EDT Rudi Hernandez MD CHEMISTRY ORDERABLES [facility] [place] [address] * (ABNORMAL) Comprehensive metabolic panel (04/20/2024 12:39 PM EDT) Pathologist [facility] Glucose 204(H) 65 - 199 mg/dL 04/20/2024 1:28 PM EDT [facility] Comment:Glucose Concentratio n >=200 mg/dL plus symptoms is consistent with Diabetes Mellitus. Blood Urea Nitrogen 5(L) 10 - 20 mg/dL 04/20/2024 1:28 PM EDT [facility] Creatinine 0.82 0.80 - 1.50 mg/dL 04/20/2024 1:28 PM EDT [facility] Sodium 141 135 - 145 [...] 108 mL/min/1. 73 m?? 04/20/2024 1:28 PM [facility] Comment: This patient's estimated GFR [...] Fasting Status No 04/20/2024 1:28 PM EDT [facility] Blood VENOUS BLOOD SPECIMEN / Unknown Venipuncture / Unknown 04/20/2024 12:39 PM EDT 04/20/2024 12:39 PM EDT Rudi Hernandez MD CHEMISTRY ORDERABLES [facility] [place] [address] * (ABNORMAL) CBC (with Diff) (04/20/2024 12:39 PM EDT) White Blood Cell 7.18 x10(3)/mc L 04/20/2024 12:49 PM EDT [facility] Red Blood Cell 5.26 4.58 - 5.54 x10(6)/mc L 04/20/2024 12:49 PM EDT [facility] Hemoglobin 12.6(L) 13.7 - 16.5 g/dL 04/20/2024 12:49 PM EDT [facility] Hematocrit 40.5 40.5 - 48.5 % 04/20/2024 12:49 PM EDT [facility] Mean Cell Volume 77.0(L) 82.9 - 93.1 fL 04/20/2024 12:49 PM EDT [facility] Mean Cell Hemoglobin 24.0(L) 27.5 - 32.1 pg 04/20/2024 12:49 PM EDT [facility] Mean Cell Hemoglobin Concentration 31.1(L) 32.0 - 35.7 g/dL 04/20/2024 12:49 PM EDT [facility] Platelet 178 145 - 357 x10(3)/mc L 04/20/2024 12:49 PM EDT [facility] Mean Platelet Volume 10.5 7.6 - 12.9 fL 04/20/2024 12:[facility] Standard Deviation 48.7(H) 36.0 [...] - 3.20 x10(3)/mc L 04/20/2024 12:49 PM [facility] Monocyte % 6.1 % 04/20/2024 12:49 PM [facility] Monocyte Absolute 0.44 0.30 - 0.90 x10(3)/mc L 04/20/2024 12:49 PM [facility] Eos % 5.3 % 04/20/2024 12:49 PM [facility] Eos Absolute 0.38 0.00 - 0.40 x10(3)/mc L 04/20/2024 12:49 PM [facility] Basophil % 0.6 % 04/20/2024 12:49 PM [facility] Baso Absolute 0.04 0.00 - 0.10 x10(3)/mc L 04/20/2024 12:49 PM [facility] Immature Gran % 0.8 % 12:49 PM EDT [facility] Immature Gran Absolute 0.06(H) 0.00 - 0.04 x10(3)/mc L 04/20/2024 12:49 PM EDT [facility] Blood VENOUS BLOOD SPECIMEN / Unknown Venipuncture / Unknown 04/20/2024 12:39 PM EDT 04/20/2024 12:39 PM EDT Rudi Hernandez MD HEMATOLOGY ORDERABLE S [facility] [place] [address] * POCT Glucose (03/08/2024 11:26 AM EDT) Glucose, POC 158 65 - 199 mg/dL [facility] Comment: Supplemental ranges: <140 mg/dL before meals <180 mg/dL all other times of the day Blood 03/08/2024 11:2 6 AM EDT 03/08/2024 11:26 AM EDT Rudi Hernandez MD POINT OF CARE TEST O RDERABLES Performing Organization Address [facility]/ZIP Co de Phone Number [facility] [place] [address] * POCT Glucose (03/08/2024 8:13 AM EDT) Glucose, POC 170 65 - 199 mg/dL [facility] Comment: Supplemental ranges: <140 mg/dL before meals <180 mg/dL all other times of the day Blood 03/08/2024 8:13 AM EDT 03/08/2024 8:13 AM EDT Rudi Hernandez MD POINT OF CARE TEST O RDERABLES Performing Organization Address City/[facility]/ZIP Co de Phone Number [facility] [place] [address] * Scan, Peripheral Blood (03/08/2024 4:44 AM EDT) Pathologist [facility] Plat estimate Normal [facility] RBC Morphology Abnormal [facility] Hypochromia Slight [facility] Polychromasia Present >5/HPF [facility] [place] Cells 6-10 /HPF [facility] Blood 03/08/2024 4:44 AM EDT 03/08/2024 5:05 AM EDT Narrative Resulting Agency Comment Spec In Lab Latonia Red MD HEMATOLOGY ORDERABLE S [facility] [place] [address] * (ABNORMAL) Differential, Automated (03/08/2024 4:44 AM EDT) Pathologist [facility] Neutrophil % 84.9 % [facility] Neutrophil Absolute 8.47(H) 1.70 - 6.10 x10(3)/mc L [facility] Lymph % 8.6 % [facility] Lymphocytes Abs 0.9 0.9 - 3.2 x10(3)/mc L [facility] Monocyte % 4.7 % [facility] Monocyte Abs 0.5 0.3 - 0.9 x10(3)/mc L [facility] Eos % 1.0 % [facility] Eosinophils Abs 0.1 0.0 - 0.4 x10(3)/mc L [facility] Basophil % 0.3 % [facility] Baso Absolute 0.0 0.0 - 0.1 x10(3)/mc L [facility] Immature Gran % 0.50 % [facility] Comment: Immature granulocytes(IG's)percentage and absolute count will include metamyelocytes, myelocytes, and promyelocytes. Blood smears from CBCs yielding IG's will be scanned manually for concordance. If this scan disagrees with the automated IG or if promyelocytes are noted, a manual differential will be performed. Immature Gran Absolute 0.05(H) 0.00 - 0.04 x10(3)/ L [facility] Blood 03/08/2024 4:44 AM EDT 03/08/2024 5:05 AM EDT Narrative Resulting Agency Comment Spec In Lab Latonia Red MD HEMATOLOGY ORDERABLE S [facility] [place] [address] * (ABNORMAL) Hemogram (03/08/2024 4:44 AM EDT) White Blood Cell 10.0(H) 4.0 - 9.5 x10(3)/[facility] Red Blood Cell 5.24 4.58 - 5.54 x10(6)/[facility] Hemoglobin 12.7(L) 13.7 - 16.5 g/dL [facility] Hematocrit 39.2(L) 40.5 - 48.5 % [facility] Mean Cell Volume 74.8(L) 82.9 - 93.1 fL [facility] Mean Cell Hemoglobin 24.2(L) 27.5 - 32.1 pg [facility] Mean Cell Hemoglobin Concentration 32.4 32.0 - 35.7 g/dL [facility] Platelet 295 145 - 357 x10(3)/[facility] RDW Standard Deviation 40.1 36.0 - 45.0 [facility] RDW coefficient of variation 14.9(H) 11.4 - 13.8 % [facility] Mean Platelet Volume 10.1 7.6 - 12.9 [facility] NRBC% auto 0.0 % [facility] NRBC Absolute 0.000 0.000 - 0.000 x10(3)/ L [facility] Blood 03/08/2024 4:44 AM EDT 03/08/2024 5:05 AM EDT Narrative Resulting Agency Comment Spec In Lab Latonia Red MD HEMATOLOGY ORDERABLE S [facility] [place] [address] * (ABNORMAL) Comprehensive metabolic panel (non-fasting) (03/08/2024 4:44 AM EDT) Glucose 197 65 - 199 mg/dL [facility] Comment:Diabetes: >=200 mg/d L plus symptoms Blood Urea Nitrogen 3(L) 10 - 20 mg/dL [facility] Creatinine 0.57(L) 0.80 - 1.50 mg/dL [facility] Sodium 132(L) 135 - 145 mmol/L [facility] Potassium 3.2(L) 3.5 - 5.0 mmol/L [facility] Comment: Please note: ??Patients with WBC >100,000 may have falsely elevated Potassium levels. ??For accurate Potassium quantification in these patients send serum separator tube (gold top) for subsequent determinations. ??Contact the Clinical Chemistry Laboratory if there are any questions. Chloride 97(L) 98 - 107 mmol/L [facility] Carbon Dioxide 21(L) 22 - 31 mmol/L [facility] Anion Gap 14 5 - 15 mmol/L [facility] Calcium 8.8 8.5 - 10.5 mg/dL [facility] Protein, Total 6.1 6.1 - 8.0 g/dL [facility] Albumin 3.0(L) 3.2 - 5.2 g/dL [facility] Aspartate Aminotransferase 11 0 - 39 unit/L [facility] Alanine Aminotransferase 22 0 - 55 unit/L [facility] Alkaline Phosphatase 94 40 - 130 unit/L [facility] Bilirubin, Total 0.4 0.2 - 1.3 mg/dL [facility] Est Glomerular Filtration Rate 120 >=60 mL/min/1. 73 m?? [facility] Comment: This patient's estimated GFR [...] Hernandez MD CHEMISTRY ORDERABLES Performing Organization Address [facility] Co de Phone Number [facility] [place] [address] * POCT Glucose (03/08/2024 4:25 AM EDT) Glucose, POC 168 65 - 199 mg/dL [facility] Comment: Supplemental ranges: <140 mg/dL before meals <180 mg/dL all other times of the day Blood 03/08/2024 4:25 AM EDT 03/08/2024 4:25 AM EDT Rudi Hernandez MD POINT OF CARE TEST O RDERABLES Performing Organization Address [facility]/ZIP Co de Phone Number [facility] [place] [address] * POCT Glucose (03/08/2024 12:06 AM EDT) Glucose, POC 166 65 - 199 mg/dL [facility] Comment: Supplemental ranges: <140 mg/dL before meals <180 mg/dL all other times of the day Blood 03/08/2024 12:0 6 AM EDT 03/08/2024 12:06 AM EDT Rudi Hernandez MD POINT OF CARE TEST O RDERABLES Performing Organization Address [facility] Co de Phone Number [facility] [place] [address] * POCT Glucose (03/07/2024 8:35 PM EDT) Glucose, POC 177 65 - 199 mg/dL [facility] Comment: Supplemental ranges: <140 mg/dL before meals <180 mg/dL all other times of the day Blood 03/07/2024 8:35 PM EDT 03/07/2024 8:35 PM EDT Rudi Hernandez MD POINT OF CARE TEST O RDERAVANNESSA Performing Organization Address [facility] Co de Phone Number [facility] [place] [address] * POCT Glucose (03/07/2024 4:08 PM EDT) Glucose, POC 187 65 - 199 mg/dL [facility] Comment: Supplemental ranges: <140 mg/dL before meals <180 mg/dL all other times of the day Blood 03/07/2024 4:08 PM EDT 03/07/2024 4:08 PM EDT Rudi Hernandez MD POINT OF CARE TEST O RDERAVANNESSA Performing Organization Address [facility] Co de Phone Number [facility] [place] [address] * POCT Glucose (03/07/2024 12:20 PM EDT) Glucose, POC 183 65 - 199 mg/dL [facility] Comment: Supplemental ranges: <140 mg/dL before meals <180 mg/dL all other times of the day Blood 03/07/2024 12:2 0 PM EDT 03/07/2024 12:20 PM EDT Rudi Hernandez MD POINT OF CARE TEST O RDERABLES [facility] [place] [address] * POCT Glucose (03/07/2024 8:35 AM EDT) Pathologist [facility] Glucose, POC 155 65 - 199 mg/dL [facility] Comment: Supplemental ranges: <140 mg/dL before meals <180 mg/dL all other times of the day Blood 03/07/2024 8:35 AM EDT 03/07/2024 8:35 AM EDT Rudi Hernandez MD POINT OF CARE TEST O RDERABLES Performing Organization Address [facility] Co de Phone Number [facility] [place] [address] * (ABNORMAL) Differential, Automated (03/07/2024 4:53 AM EDT) [facility] Neutrophil % 81.0 % [facility] Neutrophil Absolute 6.52(H) 1.70 - 6.10 x10(3)/mc L [facility] Lymph % 11.1 % [facility] Lymphocytes Abs 0.9 0.9 - 3.2 x10(3)/mc L [facility] Monocyte % 5.8 % [facility] Monocyte Abs 0.5 0.3 - 0.9 x10(3)/mc L [facility] Eos % 1.1 % [facility] Eosinophils Abs 0.1 0.0 - 0.4 x10(3)/mc L [facility] Basophil % 0.5 % [facility] Baso Absolute 0.0 0.0 - 0.1 x10(3)/mc L [facility] Immature Gran % 0.50 % [facility] Comment: Immature granulocytes(IG's)percentage and absolute count will include metamyelocytes, myelocytes, and promyelocytes. Blood smears from CBCs yielding IG's will be scanned manually for concordance. If this scan disagrees with the automated IG or if promyelocytes are noted, a manual differential will be performed. Immature Gran Absolute 0.04 0.00 - 0.04 x10(3)/[facility] Blood 03/07/2024 4:53 AM EDT 03/07/2024 5:12 AM EDT Narrative Resulting Agency Comment Spec In Lab Latonia Red MD HEMATOLOGY ORDERABLE S [facility] [place] [address] * (ABNORMAL) Hemogram (03/07/2024 4:53 AM EDT) White Blood Cell 8.0 4.0 - 9.5 x10(3)/[facility] Red Blood Cell 4.89 4.58 - 5.54 x10(6)/[facility] Hemoglobin 11.9(L) 13.7 - 16.5 g/dL [facility] Hematocrit 37.5(L) 40.5 - 48.5 % [facility] Mean Cell Volume 76.7(L) 82.9 - 93.1 [facility] Mean Cell Hemoglobin 24.3(L) 27.5 - 32.1 pg [facility] Mean Cell Hemoglobin Concentration 31.7(L) 32.0 - 35.7 g/dL [facility] Platelet 230 145 - 357 x10(3)/[facility] RDW Standard Deviation 41.0 36.0 - 45.0 [facility] RDW coefficient of variation 14.7(H) 11.4 - 13.8 % [facility] Mean Platelet Volume 10.5 7.6 - 12.9 [facility] NRBC% auto 0.0 % [facility] NRBC Absolute 0.000 0.000 - 0.000 x10(3)/[facility] Blood 03/07/2024 4:53 AM EDT 03/07/2024 5:12 AM EDT Narrative Resulting Agency Comment Spec In Lab Latonia Red MD HEMATOLOGY ORDERABLE S [facility] [place] [address] * (ABNORMAL) Comprehensive metabolic panel (non-fasting) (03/07/2024 4:53 AM EDT) Glucose 180 65 - 199 mg/dL [facility] Comment:Diabetes: >=200 mg/d L plus symptoms Blood Urea Nitrogen 5(L) 10 - 20 mg/dL [facility] Creatinine 0.67(L) 0.80 - 1.50 mg/dL [facility] Sodium 136 135 - 145 mmol/L [facility] Potassium 3.8 3.5 - 5.0 mmol/L [facility] Comment: Please note: ??Patients with WBC >100,000 may have falsely elevated Potassium levels. ??For accurate Potassium quantification in these patients send serum separator tube (gold top) for subsequent determinations. ??Contact the Clinical Chemistry Laboratory if there are any questions. Chloride 99 98 - 107 mmol/L [facility] Carbon Dioxide 25 22 - 31 mmol/L [facility] Anion Gap 12 5 - 15 mmol/L [facility] Calcium 8.4(L) 8.5 - 10.5 mg/dL [facility] Protein, Total 5.9(L) 6.1 - 8.0 g/dL [facility] Albumin 3.0(L) 3.2 - 5.2 g/dL [facility] Aspartate Aminotransferase 11 0 - 39 unit/L [facility] Alanine Aminotransferase 25 0 - 55 unit/L [facility] Alkaline Phosphatase 88 40 - 130 unit/L [facility] Bilirubin, Total 0.4 0.2 - 1.3 mg/dL [facility] Est Glomerular Filtration Rate 114 >=60 mL/min/1. 73 m?? [facility] Comment: This patient's estimated GFR [...] Hernandez MD CHEMISTRY ORDERABLES Performing Organization Address [facility]/ZIP Co de Phone Number [facility] [place] [address] * POCT Glucose (03/07/2024 3:25 AM EDT) Glucose, POC 169 65 - 199 mg/dL [facility] Comment: Supplemental ranges: <140 mg/dL before meals <180 mg/dL all other times of the day Blood 03/07/2024 3:25 AM EDT 03/07/2024 3:25 AM EDT Rudi Hernandez MD POINT OF CARE TEST O RDERABLES [facility] [place] [address] * POCT Glucose (03/06/2024 11:20 PM EDT) Glucose, POC 141 65 - 199 mg/dL [facility] Comment: Supplemental ranges: <140 mg/dL before meals <180 mg/dL all other times of the day Blood 03/06/2024 11:2 0 PM EDT 03/06/2024 11:20 PM EDT Rudi Hernandez MD POINT OF CARE TEST O RDERABLES Performing Organization Address [facility] Co de Phone Number [facility] [place] [address] * POCT Glucose (03/06/2024 8:39 PM EDT) Glucose, POC 152 65 - 199 mg/dL [facility] Comment: Supplemental ranges: <140 mg/dL before meals <180 mg/dL all other times of the day Blood 03/06/2024 8:39 PM EDT 03/06/2024 8:39 PM EDT Rudi Hernandez MD POINT OF CARE TEST O RDERAVANNESSA Performing Organization Address [facility] Co de Phone Number [facility] [place] [address] * POCT Glucose (03/06/2024 3:50 PM EDT) Glucose, POC 150 65 - 199 mg/dL [facility] Comment: Supplemental ranges: <140 mg/dL before meals <180 mg/dL all other times of the day Blood 03/06/2024 3:50 PM EDT 03/06/2024 3:50 PM EDT Rudi Hernandez MD POINT OF CARE TEST O RDERAVANNESSA Performing Organization Address [facility] Co de Phone Number [facility] [place] [address] * POCT Glucose (03/06/2024 11:38 AM EDT) Glucose, POC 158 65 - 199 mg/dL [facility] Comment: Supplemental ranges: <140 mg/dL before meals <180 mg/dL all other times of the day Blood 03/06/2024 11:3 8 AM EDT 03/06/2024 11:38 AM EDT Rudi Hernandez MD POINT OF CARE TEST O RDERAVANNESSA Performing Organization Address [facility] Co de Phone Number [facility] [place] [address] * POCT Glucose (03/06/2024 8:07 AM EDT) Glucose, POC 172 65 - 199 mg/dL [facility] Comment: Supplemental ranges: <140 mg/dL before meals <180 mg/dL all other times of the day Blood 03/06/2024 8:07 AM EDT 03/06/2024 8:07 AM EDT Rudi Hernandez MD POINT OF CARE TEST O RDERABLES Performing Organization Address [facility] de Phone Number [facility] [place] [address] * EKG 12 Lead (03/06/2024 6:30 AM EDT) Ventricular rate 82 BPM MUSE SYSTEM Atrial Rate 82 BPM MUSE SYSTEM P-R Interval 164 ms MUSE SYSTEM QRS Duration 100 ms MUSE SYSTEM Q-T Interval 430 ms MUSE SYSTEM QTC Calculated (Bezet) 502 ms MUSE SYSTEM Calculated P [place] 49 degrees MUSE SYSTEM Calculated R [place] 63 degrees MUSE SYSTEM Calculated T [place] 7 degrees MUSE SYSTEM INTERPRETATION Normal sinus rhythm Prolonged QT Abnormal ECG No previous ECGs available Confirmed by MD Gomes Daniel ([id number]) on 03/07/2024 3:35:02 PM MUSE SYSTEM 03/06/2024 6:30 AM EDT 03/07/2024 3:35 PM EDT Rudi Hernandez MD ECG ORDERABLES Performing Organization Address [facility] Co de Phone Number MUSE SYSTEM * XR Abdomen Flat & Upright (03/06/2024 5:29 AM EDT) WORKSTATION ID [id number] RAD Anatomical Region Laterality Modality Abdomen N/A [...] who have questions please contact the health day care center director that requested your imaging first. ? Electronically signed by: Jenelle Cervantes MD, [facility] ([phone]), at 03/06/2024 8:15 AM Narrative 03/06/2024 8:15 [...] patients who have questions please contactthe health day care center director that requested your imaging first. Rudi Hernandez MD IMG DX ORDERABLES * POCT Glucose (03/06/2024 4:39 AM EDT) [facility] Glucose, POC 163 65 - 199 mg/dL [facility] Comment: Supplemental ranges: <140 mg/dL before meals <180 mg/dL all other times of the day Blood 03/06/2024 4:39 AM EDT 03/06/2024 4:39 AM EDT Rudi Hernandez MD POINT OF CARE TEST O RDERABLES [facility] [place] [address] * Differential, Automated (03/06/2024 4:09 AM EDT) [facility] Neutrophil % 73.7 % [facility] Neutrophil Absolute 5.52 1.70 - 6.10 x10(3)/[facility] Lymph % 16.4 % [facility] Lymphocytes Abs 1.2 0.9 - 3.2 x10(3)/[facility] Monocyte % 6.8 % [facility] Monocyte Abs 0.5 0.3 - 0.9 x10(3)/[facility] LABORATORY Eos % 2.3 % [facility] LABOR[facility]ORY Eosinophils Abs 0.2 0.0 - 0.4 x10(3)/[facility] LABORATORY Basophil % 0.5 % [facility] LABORATORY Baso Absolute 0.0 0.0 - 0.1 x10(3)/[facility] LABORATORY Immature Gran % 0.30 % [facility] LABORATORY Comment: Immature granulocytes(IG's)percentage and absolute count will include metamyelocytes, myelocytes, and promyelocytes. Blood smears from CBCs yielding IG's will be scanned manually for concordance. If this scan disagrees with the automated IG or if promyelocytes are noted, a manual differential will be performed. Immature Gran Absolute 0.02 0.00 - 0.04 x10(3)/[facility] LABORATORY Blood 03/06/2024 4:09 AM EDT 03/06/2024 4:29 AM EDT Narrative Resulting Agency Comment Spec In Lab Latonia Red MD HEMATOLOGY ORDERABLE S Performing Organization Address City/State/[facility] Co de Phone Number [facility] [place] [address] * (ABNORMAL) Hemogram (03/06/2024 4:09 AM EDT) White Blood Cell 7.5 4.0 - 9.5 x10(3)/[facility] LABORATORY Red Blood Cell 4.98 4.58 - 5.54 x10(6)/[facility] LABORATORY Hemoglobin 12.1(L) 13.7 - 16.5 g/dL [facility] Hematocrit 38.4(L) 40.5 - 48.5 % [facility] Mean Cell Volume 77.1(L) 82.9 - 93.1 fL [facility] Mean Cell Hemoglobin 24.3(L) 27.5 - 32.1 pg [facility] Mean Cell Hemoglobin Concentration 31.5(L) 32.0 - 35.7 g/dL [facility] Platelet 220 145 - 357 x10(3)/[facility] LABORATORY RDW Standard Deviation 41.1 36.0 - 45.0 fL [facility] RDW coefficient of variation 14.8(H) 11.4 - 13.8 % [facility] Mean Platelet Volume 10.5 7.6 - 12.9 fL [facility] NRBC% auto 0.0 % [facility] NRBC Absolute 0.000 0.000 - 0.000 x10(3)/mc L [facility] Blood 03/06/2024 4:09 AM EDT 03/06/2024 4:29 AM EDT Narrative Resulting Agency Comment Spec In Lab Latonia Red MD HEMATOLOGY ORDERABLE S [facility] [place] [address] * (ABNORMAL) Comprehensive metabolic panel (non-fasting) (03/06/2024 4:09 AM EDT) Glucose 169 65 - 199 mg/dL [facility] Comment:Diabetes: >=200 mg/d L plus symptoms Blood Urea Nitrogen 6(L) 10 - 20 mg/dL [facility] Creatinine 0.70(L) 0.80 - 1.50 mg/dL [facility] Sodium 135 135 - 145 mmol/L [facility] Potassium 3.4(L) 3.5 - 5.0 mmol/L [facility] Comment: Please note: ??Patients with WBC >100,000 may have falsely elevated Potassium levels. ??For accurate Potassium quantification in these patients send serum separator tube (gold top) for subsequent determinations. ??Contact the Clinical Chemistry Laboratory if there are any questions. Chloride 98 98 - 107 mmol/L [facility] Carbon Dioxide 27 22 - 31 mmol/L [facility] Anion Gap 10 5 - 15 mmol/L [facility] Calcium 8.6 8.5 - 10.5 mg/dL [facility] Protein, Total 5.9(L) 6.1 - 8.0 g/dL [facility] Albumin 3.1(L) 3.2 - 5.2 g/dL [facility] Aspartate Aminotransferase 12 0 - 39 unit/L [facility] Alanine Aminotransferase 36 0 - 55 unit/L [facility] Alkaline Phosphatase 86 40 - 130 unit/L [facility] Bilirubin, Total 0.4 0.2 - 1.3 mg/dL [facility] Est Glomerular Filtration Rate 113 >=60 mL/min/1. 73 m?? [facility] Comment: This patient's estimated GFR [...] Hernandez MD CHEMISTRY ORDERABLES Performing Organization Address [facility]/ZIP Co de Phone Number [facility] [place] [address] * POCT Glucose (03/05/2024 11:13 PM EDT) Glucose, POC 151 65 - 199 mg/dL [facility] Comment: Supplemental ranges: <140 mg/dL before meals <180 mg/dL all other times of the day Blood 03/05/2024 11:1 3 PM EDT 03/05/2024 11:13 PM EDT Rudi Hernandez MD POINT OF CARE TEST O RDERABLES Performing Organization Address City/[facility]/ZIP Co de Phone Number [facility] [place] [address] * POCT Glucose (03/05/2024 7:29 PM EDT) Glucose, POC 160 65 - 199 mg/dL [facility] Comment: Supplemental ranges: <140 mg/dL before meals <180 mg/dL all other times of the day Blood 03/05/2024 7:29 PM EDT 03/05/2024 7:29 PM EDT Rudi Hernandez MD POINT OF CARE TEST O RDERAVANNESSA Performing Organization Address [facility]/ZIP Co de Phone Number [facility] [place] [address] * POCT Glucose (03/05/2024 4:40 PM EDT) Glucose, POC 141 65 - 199 mg/dL [facility] Comment: Supplemental ranges: <140 mg/dL before meals <180 mg/dL all other times of the day Blood 03/05/2024 4:40 PM EDT 03/05/2024 4:40 PM EDT Rudi Hernandez MD POINT OF CARE TEST O RDERAVANNESSA Performing Organization Address [facility] Co de Phone Number [facility] [place] [address] * Amylase Level Body Fluid BASIA Drain (03/05/2024 11:20 AM EDT) Amylase, Fluid 32 unit/L [facility] Comment: Reference intervals are unavailable for this test in body fluids. Comparison of this result with the concentration in blood, serum, or plasma is recommended. This test has not been cleared by the [place] FDA. Performance characteristics of this test for the analysis of body fluids were determined by [facility] in accordance with CLIA requirements. This laboratory is qualified under CLIA to perform high-complexity testing. Amylase BF Type BASIA Drain [facility] BASIA Drain 03/05/2024 11:2 0 AM EDT 03/05/2024 11:37 AM EDT Narrative Resulting Agency Comment Spec In Lab Rudi Hernandez MD BODY FLUIDS AND STOO LS ORDERABLES Performing Organization Address [facility] Co de Phone Number [facility] [place] [address] * POCT Glucose (03/05/2024 11:14 AM EDT) Glucose, POC 180 65 - 199 mg/dL [facility] Comment: Supplemental ranges: <140 mg/dL before meals <180 mg/dL all other times of the day Blood 03/05/2024 11:1 4 AM EDT 03/05/2024 11:14 AM EDT Rudi Hernandez MD POINT OF CARE TEST O RDERABLES Performing Organization Address [facility] Co de Phone Number [facility] [place] [address] * POCT Glucose (03/05/2024 7:47 AM EDT) Glucose, POC 180 65 - 199 mg/dL [facility] Comment: Supplemental ranges: <140 mg/dL before meals <180 mg/dL all other times of the day Blood 03/05/2024 7:47 AM EDT 03/05/2024 7:47 AM EDT Rudi Hernandez MD POINT OF CARE TEST O RDERABLES Performing Organization Address [facility] Co de Phone Number [facility] [place] [address] * POCT Glucose (03/05/2024 5:14 AM EDT) Glucose, POC 173 65 - 199 mg/dL [facility] Comment: Supplemental ranges: <140 mg/dL before meals <180 mg/dL all other times of the day Blood 03/05/2024 5:14 AM EDT 03/05/2024 5:14 AM EDT Rudi Hernandez MD POINT OF CARE TEST O RDERABLES [facility] [place] [address] * (ABNORMAL) Differential, Automated (03/05/2024 4:21 AM EDT) Neutrophil % 75.2 % [facility] Neutrophil Absolute 6.45(H) 1.70 - 6.10 x10(3)/mc L [facility] Lymph % 13.8 % [facility] Lymphocytes Abs 1.2 0.9 - 3.2 x10(3)/mc L [facility] Monocyte % 7.7 % [facility] Monocyte Abs 0.7 0.3 - 0.9 x10(3)/mc L [facility] Eos % 2.3 % [facility] Eosinophils Abs 0.2 0.0 - 0.4 x10(3)/mc L [facility] Basophil % 0.5 % [facility] Baso Absolute 0.0 0.0 - 0.1 x10(3)/mc L [facility] Immature Gran % 0.50 % [facility] Comment: Immature granulocytes(IG's)percentage and absolute count will include metamyelocytes, myelocytes, and promyelocytes. Blood smears from CBCs yielding IG's will be scanned manually for concordance. If this scan disagrees with the automated IG or if promyelocytes are noted, a manual differential will be performed. Immature Gran Absolute 0.04 0.00 - 0.04 x10(3)/mc L [facility] Blood 03/05/2024 4:21 AM EDT 03/05/2024 4:39 AM EDT Narrative Resulting Agency Comment Spec In Lab Latonia Red MD HEMATOLOGY ORDERABLE S Performing Organization Address City/[facility]/ZIP Co de Phone Number [facility] [place] [address] * (ABNORMAL) Hemogram (03/05/2024 4:21 AM EDT) Pathologist [facility] White Blood Cell 8.6 4.0 - 9.5 x10(3)/[facility] LABORATORY Red Blood Cell 4.62 4.58 - 5.54 x10(6)/[facility] LABORATORY Hemoglobin 11.5(L) 13.7 - 16.5 g/dL [facility] Hematocrit 36.5(L) 40.5 - 48.5 % [facility] Mean Cell Volume 79.0(L) 82.9 - 93.1 [facility] Mean Cell Hemoglobin 24.9(L) 27.5 - 32.1 pg [facility] Mean Cell Hemoglobin Concentration 31.5(L) 32.0 - 35.7 g/dL [facility] Platelet 165 145 - 357 x10(3)/[facility] LABORATORY RDW Standard Deviation 43.4 36.0 - 45.0 [facility] RDW coefficient of variation 15.1(H) 11.4 - 13.8 % [facility] Mean Platelet Volume 10.7 7.6 - 12.9 [facility] NRBC% auto 0.0 % [facility] NRBC Absolute 0.000 0.000 - 0.000 x10(3)/[facility] LABORAT[facility] Blood 03/05/2024 4:21 AM EDT 03/05/2024 4:39 AM EDT Narrative Resulting Agency Comment Spec In Lab Latonia Red MD HEMATOLOGY ORDERABLE S [facility] [place] [address] * (ABNORMAL) Comprehensive metabolic panel (non-fasting) (03/05/2024 4:21 AM EDT) [facility] Glucose 182 65 - 199 mg/dL [facility] Comment:Diabetes: >=200 mg/d L plus symptoms Blood Urea Nitrogen 6(L) 10 - 20 mg/dL [facility] Creatinine 0.80 0.80 - 1.50 mg/dL [facility] Sodium 135 135 - 145 mmol/L [facility] Potassium 3.3(L) 3.5 - 5.0 mmol/L [facility] Comment: Please note: ??Patients with WBC >100,000 may have falsely elevated Potassium levels. ??For accurate Potassium quantification in these patients send serum separator tube (gold top) for subsequent determinations. ??Contact the Clinical Chemistry Laboratory if there are any questions. Chloride 100 98 - 107 mmol/L [facility] Carbon Dioxide 26 22 - 31 mmol/L [facility] Anion Gap 9 5 - 15 mmol/L [facility] Calcium 8.1(L) 8.5 - 10.5 mg/dL [facility] Protein, Total 5.6(L) 6.1 - 8.0 g/dL [facility] Albumin 2.9(L) 3.2 - 5.2 g/dL [facility] Aspartate Aminotransferase 14 0 - 39 unit/L [facility] Alanine Aminotransferase 45 0 - 55 unit/L [facility] Alkaline Phosphatase 79 40 - 130 unit/L [facility] Bilirubin, Total 0.4 0.2 - 1.3 mg/dL [facility] Est Glomerular Filtration Rate 108 >=60 mL/min/1. 73 m?? [facility] Comment: This patient's estimated GFR [...] Hernandez MD CHEMISTRY ORDERABLES Performing Organization Address City/[facility]/ZIP Co de Phone Number [facility] [place] [address] * POCT Glucose (03/05/2024 12:28 AM EDT) Glucose, POC 166 65 - 199 mg/dL [facility] Comment: Supplemental ranges: <140 mg/dL before meals <180 mg/dL all other times of the day Blood 03/05/2024 12:2 8 AM EDT 03/05/2024 12:28 AM EDT Rudi Hernandez MD POINT OF CARE TEST O RDERABLES Performing Organization Address [facility]/ZIP Co de Phone Number [facility] [place] [address] * POCT Glucose (03/04/2024 8:02 PM EDT) Glucose, POC 174 65 - 199 mg/dL [facility] Comment: Supplemental ranges: <140 mg/dL before meals <180 mg/dL all other times of the day Blood 03/04/2024 8:02 PM EDT 03/04/2024 8:02 PM EDT Rudi Hernandez MD POINT OF CARE TEST O RDERABLES Performing Organization Address City/[facility]/ZIP Co de Phone Number [facility] [place] [address] * POCT Glucose (03/04/2024 4:18 PM EDT) Glucose, POC 174 65 - 199 mg/dL [facility] Comment: Supplemental ranges: <140 mg/dL before meals <180 mg/dL all other times of the day Blood 03/04/2024 4:18 PM EDT 03/04/2024 4:18 PM EDT Rudi Hernandez MD POINT OF CARE TEST O RDERAVANNESSA Performing Organization Address [facility] Co de Phone Number [facility] [place] [address] * POCT Glucose (03/04/2024 11:34 AM EDT) Glucose, POC 173 65 - 199 mg/dL [facility] Comment: Supplemental ranges: <140 mg/dL before meals <180 mg/dL all other times of the day Blood 03/04/2024 11:3 4 AM EDT 03/04/2024 11:34 AM EDT Rudi Hernandez MD POINT OF CARE TEST O ARASHERAVANNESSA Performing Organization Address [facility] Co de Phone Number [facility] [place] [address] * POCT Glucose (03/04/2024 7:30 AM EDT) Glucose, POC 185 65 - 199 mg/dL [facility] Comment: Supplemental ranges: <140 mg/dL before meals <180 mg/dL all other times of the day Blood 03/04/2024 7:30 AM EDT 03/04/2024 7:30 AM EDT Rudi Hernandez MD POINT OF CARE TEST O RDERAVANNESSA Performing Organization Address [facility] Co de Phone Number [facility] [place] [address] * (ABNORMAL) Differential, Automated (03/04/2024 6:12 AM EDT) Neutrophil % 85.5 % [facility] Neutrophil Absolute 9.96(H) 1.70 - 6.10 x10(3)/mc L [facility] Lymph % 7.7 % [facility] Lymphocytes Abs 0.9 0.9 - 3.2 x10(3)/ L [facility] Monocyte % 5.3 % [facility] Monocyte Abs 0.6 0.3 - 0.9 x10(3)/[facility]OR[facility] Eos % 0.7 % [facility] Eosinophils Abs 0.1 0.0 - 0.4 x10(3)/[facility] Basophil % 0.3 % [facility] Baso Absolute 0.0 0.0 - 0.1 x10(3)/[facility] Immature Gran % 0.50 % [facility] Comment: Immature granulocytes(IG's)percentage and absolute count will include metamyelocytes, myelocytes, and promyelocytes. Blood smears from CBCs yielding IG's will be scanned manually for concordance. If this scan disagrees with the automated IG or if promyelocytes are noted, a manual differential will be performed. Immature Gran Absolute 0.06(H) 0.00 - 0.04 x10(3)/[facility] LABOR[facility] Blood 03/04/2024 6:12 AM EDT 03/04/2024 6:53 AM EDT Narrative Resulting Agency Comment Spec In Lab Latonia Red MD HEMATOLOGY ORDERABLE S [facility] [place] [address] * (ABNORMAL) Hemogram (03/04/2024 6:12 AM EDT) White Blood Cell 11.6(H) 4.0 - 9.5 x10(3)/[facility] Red Blood Cell 4.72 4.58 - 5.54 x10(6)/[facility] Hemoglobin 11.7(L) 13.7 - 16.5 g/dL [facility] Hematocrit 37.1(L) 40.5 - 48.5 % [facility] Mean Cell Volume 78.6(L) 82.9 - 93.1 fL [facility] Mean Cell Hemoglobin 24.8(L) 27.5 - 32.1 pg [facility] Mean Cell Hemoglobin Concentration 31.5(L) 32.0 - 35.7 g/dL [facility] Platelet 165 145 - 357 x10(3)/mc L [facility] RDW Standard Deviation 44.1 36.0 - 45.0 fL [facility] RDW coefficient of variation 15.3(H) 11.4 - 13.8 % [facility] Mean Platelet Volume 10.7 7.6 - 12.9 fL [facility] NRBC% auto 0.0 % [facility] NRBC Absolute 0.000 0.000 - 0.000 x10(3)/mc L [facility] Blood 03/04/2024 6:12 AM EDT 03/04/2024 6:53 AM EDT Narrative Resulting Agency Comment Spec In Lab Latonia Red MD HEMATOLOGY ORDERABLE S [facility] [place] [address] * (ABNORMAL) Comprehensive metabolic panel (non-fasting) (03/04/2024 6:12 AM EDT) Glucose 204(H) 65 - 199 mg/dL [facility] Comment:Diabetes: >=200 mg/d L plus symptoms Blood Urea Nitrogen 8(L) 10 - 20 mg/dL [facility] Creatinine 0.76(L) 0.80 - 1.50 mg/dL [facility] Sodium 135 135 - 145 mmol/L [facility] Potassium 3.5 3.5 - 5.0 mmol/L [facility] Comment: Please note: ??Patients with WBC >100,000 may have falsely elevated Potassium levels. ??For accurate Potassium quantification in these patients send serum separator tube (gold top) for subsequent determinations. ??Contact the Clinical Chemistry Laboratory if there are any questions. Chloride 100 98 - 107 mmol/L [facility] Carbon Dioxide 25 22 - 31 mmol/L [facility] Anion Gap 10 5 - 15 mmol/L [facility] Calcium 8.3(L) 8.5 - 10.5 mg/dL [facility] Protein, Total 5.6(L) 6.1 - 8.0 g/dL [facility] Albumin 3.0(L) 3.2 - 5.2 g/dL [facility] Aspartate Aminotransferase 19 0 - 39 unit/L [facility] Alanine Aminotransferase 68(H) 0 - 55 unit/L [facility] Alkaline Phosphatase 84 40 - 130 unit/L [facility] Bilirubin, Total 0.4 0.2 - 1.3 mg/dL [facility] Est Glomerular Filtration Rate 110 >=60 mL/min/1. 73 m?? [facility] Comment: This patient's estimated GFR [...] In Lab Rudi Hernandez MD CHEMISTRY ORDERABLES [facility] [place] [address] * Amylase Level Body Fluid BASIA Drain (03/04/2024 5:30 AM EDT) Amylase, Fluid 395 unit/L [facility] Comment: Reference intervals are unavailable for this test in body fluids. Comparison of this result with the concentration in blood, serum, or plasma is recommended. This test has not been cleared by the [place] FDA. Performance characteristics of this test for the analysis of body fluids were determined by [facility] in accordance with CLIA requirements. This laboratory is qualified under CLIA to perform high-complexity testing. Amylase BF Type BASIA Drain [facility] BASIA Drain 03/04/2024 5:30 AM EDT 03/04/2024 5:41 AM EDT Narrative Resulting Agency Comment Spec In Lab Rudi Hernandez MD BODY FLUIDS AND STOO LS ORDERABLES Performing Organization Address [facility]/ZIP Co de Phone Number [facility] [place] [address] * POCT Glucose (03/04/2024 5:15 AM EDT) Glucose, POC 171 65 - 199 mg/dL [facility] Comment: Supplemental ranges: <140 mg/dL before meals <180 mg/dL all other times of the day Blood 03/04/2024 5:15 AM EDT 03/04/2024 5:15 AM EDT Rudi Hernandez MD POINT OF CARE TEST O RDERABLES Performing Organization Address [facility] Co de Phone Number [facility] [place] [address] * POCT Glucose (03/03/2024 11:19 PM EDT) Glucose, POC 181 65 - 199 mg/dL [facility] Comment: Supplemental ranges: <140 mg/dL before meals <180 mg/dL all other times of the day Blood 03/03/2024 11:1 9 PM EDT 03/03/2024 11:19 PM EDT Rudi Hernandez MD POINT OF CARE TEST O RDERABLES Performing Organization Address City/[facility]/ZIP Co de Phone Number [facility] [place] [address] * POCT Glucose (03/03/2024 8:31 PM EDT) Glucose, POC 181 65 - 199 mg/dL [facility] Comment: Supplemental ranges: <140 mg/dL before meals <180 mg/dL all other times of the day Blood 03/03/2024 8:31 PM EDT 03/03/2024 8:31 PM EDT Rudi Hernandez MD POINT OF CARE TEST O RDERABLES Performing Organization Address [facility] Co de Phone Number [facility] [place] [address] * POCT Glucose (03/03/2024 3:59 PM EDT) Glucose, POC 174 65 - 199 mg/dL [facility] Comment: Supplemental ranges: <140 mg/dL before meals <180 mg/dL all other times of the day Blood 03/03/2024 3:59 PM EDT 03/03/2024 3:59 PM EDT Rudi Hernandez MD POINT OF CARE TEST O RDERABLES Performing Organization Address [facility] Co de Phone Number [facility] [place] [address] * (ABNORMAL) Basic Metabolic Panel (non-fasting) (03/03/2024 1:13 PM EDT) Glucose 175 65 - 199 mg/dL [facility] Comment:Diabetes: >=200 mg/d L plus symptoms Blood Urea Nitrogen 11 10 - 20 mg/dL [facility] Creatinine 0.79(L) 0.80 - 1.50 mg/dL [facility] Sodium 137 135 - 145 mmol/L [facility] Potassium 3.6 3.5 - 5.0 mmol/L [facility] Comment: Please note: ??Patients with WBC >100,000 may have falsely elevated Potassium levels. ??For accurate Potassium quantification in these patients send serum separator tube (gold top) for subsequent determinations. ??Contact the Clinical Chemistry Laboratory if there are any questions. Chloride 103 98 - 107 mmol/L [facility] Carbon Dioxide 25 22 - 31 mmol/L [facility] Anion Gap 9 5 - 15 mmol/L [facility] Calcium 8.2(L) 8.5 - 10.5 mg/dL [facility] Est Glomerular Filtration Rate 109 >=60 mL/min/1. 73 m?? [facility] Comment: This patient's estimated GFR [...] Hernandez MD CHEMISTRY ORDERABLES Performing Organization Address City/[facility] Co de Phone Number [facility] [place] [address] * POCT Glucose (03/03/2024 12:20 PM EDT) Glucose, POC 156 65 - 199 mg/dL [facility] Comment: Supplemental ranges: <140 mg/dL before meals <180 mg/dL all other times of the day Blood 03/03/2024 12:2 0 PM EDT 03/03/2024 12:20 PM EDT Rudi Hernandez MD POINT OF CARE TEST O RDERABLES [facility] [place] [address] * Amylase Level Body Fluid (03/03/2024 11:40 AM EDT) Amylase, Fluid 645 unit/L [facility] Comment: Reference intervals are unavailable for this test in body fluids. Comparison of this result with the concentration in blood, serum, or plasma is recommended. This test has not been cleared by the [place] FDA. Performance characteristics of this test for the analysis of body fluids were determined by [facility] in accordance with CLIA requirements. This laboratory is qualified under CLIA to perform high-complexity testing. Amylase BF Type BASIA Drain [facility] BASIA Drain Other / Unknown 03/03/2024 1 1:40 AM EDT 03/03/2024 11:50 AM EDT Narrative Resulting Agency Comment Spec In Lab Latonia Red MD BODY FLUIDS AND STOO LS ORDERABLES Performing Organization Address [facility]/ZIP Co de Phone Number [facility] [place] [address] * POCT Glucose (03/03/2024 8:08 AM EDT) Glucose, POC 166 65 - 199 mg/dL [facility] Comment: Supplemental ranges: <140 mg/dL before meals <180 mg/dL all other times of the day Blood 03/03/2024 8:08 AM EDT 03/03/2024 8:08 AM EDT Rudi Hernandez MD POINT OF CARE TEST O RDERABLES Performing Organization Address [facility]/ZIP Co de Phone Number [facility] [place] [address] * POCT Glucose (03/03/2024 3:57 AM EDT) Glucose, POC 159 65 - 199 mg/dL [facility] Comment: Supplemental ranges: <140 mg/dL before meals <180 mg/dL all other times of the day Blood 03/03/2024 3:57 AM EDT 03/03/2024 3:57 AM EDT Rudi Hernandez MD POINT OF CARE TEST O RDERABLES Performing Organization Address City/[facility]/ZIP Co de Phone Number [facility] [place] [address] * Creatinine, urine, random (03/03/2024 1:19 AM EDT) Creatinine, Urine 288 mg/dL [facility] Urine 03/03/2024 1:19 AM EDT 03/03/2024 1:28 AM EDT Narrative Resulting Agency Comment Spec In Lab Rudi Hernandez MD URINE ORDERABLES Performing Organization Address [facility] Co de Phone Number [facility] [place] [address] * Sodium, urine, random (03/03/2024 1:19 AM EDT) Sodium, Urine <20 mmol/L [facility] Urine 03/03/2024 1:19 AM EDT 03/03/2024 1:28 AM EDT Narrative Resulting Agency Comment Spec In Lab Rudi Hernandez MD URINE ORDERABLES Performing Organization Address City/[facility]/ZIP Co de Phone Number [facility] [place] [address] * Green Tube HOLD (03/03/2024 1:04 AM EDT) Green Hold Sample in lab. [facility] Blood Venous Draw / Unknown 03/03/2024 1:04 AM EDT 03/03/2024 1:12 AM EDT Latonia Red MD CHEMISTRY ORDERABLES Performing Organization Address City/[facility]/ZIP Co de Phone Number [facility] [place] [address] * (ABNORMAL) Differential, Automated (03/03/2024 1:04 AM EDT) Pathologist [facility] Neutrophil % 85.5 % [facility] Neutrophil Absolute 13.27(H) 1.70 - 6.10 x10(3)/[facility] Lymph % 7.5 % [facility] Lymphocytes Abs 1.2 0.9 - 3.2 x10(3)/[facility] Monocyte % 6.0 % [facility] Monocyte Abs 0.9 0.3 - 0.9 x10(3)/[facility] Eos % 0.2 % [facility] Eosinophils Abs 0.0 0.0 - 0.4 x10(3)/[facility] Basophil % 0.2 % [facility] Baso Absolute 0.0 0.0 - 0.1 x10(3)/[facility] Immature Gran % 0.60 % [facility] Comment: Immature granulocytes(IG's)percentage and absolute count will include metamyelocytes, myelocytes, and promyelocytes. Blood smears from CBCs yielding IG's will be scanned manually for concordance. If this scan disagrees with the automated IG or if promyelocytes are noted, a manual differential will be performed. Immature Gran Absolute 0.10(H) 0.00 - 0.04 x10(3)/[facility] Blood 03/03/2024 1:04 AM EDT 03/03/2024 1:11 AM EDT Narrative Resulting Agency Comment Spec In Lab Kamryn Kim MD HEMATOLOGY ORDERA BLES [facility] [place] [address] * (ABNORMAL) Hemogram (03/03/2024 1:04 AM EDT) [facility] White Blood Cell 15.5(H) 4.0 - 9.5 x10(3)/[facility] Red Blood Cell 4.81 4.58 - 5.54 x10(6)/[facility] Hemoglobin 11.7(L) 13.7 - 16.5 g/dL [facility] Hematocrit 37.2(L) 40.5 - 48.5 % [facility] Mean Cell Volume 77.3(L) 82.9 - 93.1 fL [facility] Mean Cell Hemoglobin 24.3(L) 27.5 - 32.1 pg [facility] Mean Cell Hemoglobin Concentration 31.5(L) 32.0 - 35.7 g/dL [facility] Platelet 169 145 - 357 x10(3)/[facility] RDW Standard Deviation 43.7 36.0 - 45.0 [facility] RDW coefficient of variation 15.5(H) 11.4 - 13.8 % [facility] Mean Platelet Volume 10.9 7.6 - 12.9 [facility] NRBC% auto 0.0 % [facility] NRBC Absolute 0.000 0.000 - 0.000 x10(3)/[facility] Blood 03/03/2024 1:04 AM EDT 03/03/2024 1:11 AM EDT Narrative Resulting Agency Comment Spec In Lab Kamryn Kim MD HEMATOLOGY ORDERA BLES [facility] [place] [address] * Lactate, whole blood, send to lab ([facility]) (03/03/2024 1:04 AM EDT) Lactate WB 1.5 0.5 - 2.2 mmol/L [facility] Blood 03/03/2024 1:04 AM EDT 03/03/2024 1:11 AM EDT Narrative Resulting Agency Comment Spec In Lab Rudi Hernandez MD CHEMISTRY ORDERABLES Performing Organization Address City/[facility]/ZIP Co de Phone Number [facility] [place] [address] * (ABNORMAL) Phosphorus (03/03/2024 1:04 AM EDT) Phosphorus 2.2(L) 2.5 - 4.5 mg/dL [facility] Blood 03/03/2024 1:04 AM EDT 03/03/2024 1:11 AM EDT Narrative Resulting Agency Comment Spec In Lab Rudi Hernandez MD CHEMISTRY ORDERABLES Performing Organization Address [facility]/ZIP Co de Phone Number [facility] [place] [address] * Magnesium (03/03/2024 1:04 AM EDT) Magnesium 0.78 0.69 - 1.07 mmol/L [facility] Blood 03/03/2024 1:04 AM EDT 03/03/2024 1:11 AM EDT Narrative Resulting Agency Comment Spec In Lab Rudi Hernandez MD CHEMISTRY ORDERABLES Performing Organization Address [facility]/ZIP Co de Phone Number [facility] [place] [address] * (ABNORMAL) Comprehensive metabolic panel (non-fasting) (03/03/2024 1:04 AM EDT) Glucose 192 65 - 199 mg/dL [facility] Comment:Diabetes: >=200 mg/d L plus symptoms Blood Urea Nitrogen 16 10 - 20 mg/dL [facility] Creatinine 1.16 0.80 - 1.50 mg/dL [facility] Sodium 137 135 - 145 mmol/L [facility] Potassium 3.9 3.5 - 5.0 mmol/L [facility] Comment: result rechecked-RSG Please note: ??Patients with WBC >100,000 may have falsely elevated Potassium levels. ??For accurate Potassium quantification in these patients send serum separator tube (gold top) for subsequent determinations. ??Contact the Clinical Chemistry Laboratory if there are any questions. Chloride 101 98 - 107 mmol/L [facility] Carbon Dioxide 24 22 - 31 mmol/L [facility] Anion Gap 12 5 - 15 mmol/L [facility] Calcium 8.1(L) 8.5 - 10.5 mg/dL [facility] Protein, Total 5.3(L) 6.1 - 8.0 g/dL [facility] Albumin 2.9(L) 3.2 - 5.2 g/dL [facility] Aspartate Aminotransferase 64(H) 0 - 39 unit/L [facility] Alanine Aminotransferase 111(H) 0 - 55 unit/L [facility] Alkaline Phosphatase 83 40 - 130 unit/L [facility] Bilirubin, Total 0.6 0.2 - 1.3 mg/dL [facility] Est Glomerular Filtration Rate 77 >=60 mL/min/1. 73 m?? [facility] Comment: This patient's estimated GFR [...] In Lab Rudi Hernandez MD CHEMISTRY ORDERABLES [facility] [place] [address] * POCT Glucose (03/02/2024 10:59 PM EDT) Glucose, POC 181 65 - 199 mg/dL [facility] Comment: Supplemental ranges: <140 mg/dL before meals <180 mg/dL all other times of the day Blood 03/02/2024 10:5 9 PM EDT 03/02/2024 10:59 PM EDT Rudi Hernandez MD POINT OF CARE TEST O RDERABLES [facility] [place] [address] * XR Abdomen 1 view (Generic) (03/02/2024 9:54 PM EDT) Pathologist [facility] WORKSTATION ID [id number] [facility] Anatomical Region Laterality Modality Abdomen N/A Digital [...] who have questions please contact the health day care center director that requested your imaging first. ? Narrative [...] patients who have questions please contactthe health day care center director that requested your imaging first. Rudi Hernandez MD IMG DX ORDERABLES * POCT Glucose (03/02/2024 7:41 PM EDT) [facility] Signature Glucose, POC 186 65 - 199 mg/dL [facility] Comment: Supplemental ranges: <140 mg/dL before meals <180 mg/dL all other times of the day Blood 03/02/2024 7:41 PM EDT 03/02/2024 7:41 PM EDT Rudi Hernandez MD POINT OF CARE TEST O RDERABLES [facility] [place] [address] * XR Abdomen 1 view (Generic) (03/02/2024 7:38 PM EDT) WORKSTATION ID [id number] [facility] Anatomical Region Laterality Modality Abdomen N/A [...] who have questions please contact the health day care center director that requested your imaging first. ? Narrative [...] patients who have questions please contactthe health day care center director that requested your imaging first. Rudi Hernandez MD IMG DX ORDERABLES * POCT Glucose (03/02/2024 4:00 PM EDT) Glucose, POC 179 65 - 199 mg/dL [facility] Comment: Supplemental ranges: <140 mg/dL before meals <180 mg/dL all other times of the day Blood 03/02/2024 4:00 PM EDT 03/02/2024 4:00 PM EDT Rudi Hernandez MD POINT OF CARE TEST O RDERABLES [facility] [place] [address] * POCT Glucose (03/02/2024 11:12 AM EDT) Glucose, POC 183 65 - 199 mg/dL [facility] Comment: Supplemental ranges: <140 mg/dL before meals <180 mg/dL all other times of the day Blood 03/02/2024 11:1 2 AM EDT 03/02/2024 11:12 AM EDT Rudi Hernandez MD POINT OF CARE TEST O RDERABLES Performing Organization Address [facility] Co de Phone Number [facility] [place] [address] * POCT Glucose (03/02/2024 7:48 AM EDT) Glucose, POC 170 65 - 199 mg/dL [facility] Comment: Supplemental ranges: <140 mg/dL before meals <180 mg/dL all other times of the day Blood 03/02/2024 7:48 AM EDT 03/02/2024 7:48 AM EDT Rudi Hernandez MD POINT OF CARE TEST O RDERABLES Performing Organization Address [facility] Co de Phone Number [facility] [place] [address] * (ABNORMAL) Aspartate Aminotransferase (03/02/2024 5:27 AM EDT) [facility] Aspartate Aminotransferase 89(H) 0 - 39 unit/L [facility] Blood 03/02/2024 5:27 AM EDT 03/02/2024 6:06 AM EDT Narrative Resulting Agency Comment Spec In Lab Rudi Hernandez MD CHEMISTRY ORDERABLES Performing Organization Address [facility] Co de Phone Number [facility] [place] [address] * (ABNORMAL) Hemoglobin A1c (03/02/2024 4:30 AM EDT) Hemoglobin A1c 8.9(H) 4.3 - 5.6 % [facility] Comment: Reference Range: 4.3 - [...] Mellitus, Diabetes Care 2013; 36: Suppl. 1, A84-53 Estimated Average Glucose 208 mg/dL [facility] Blood Venous Draw / Unknown 03/02/2024 4:30 AM EDT 03/02/2024 1:54 PM EDT Narrative Resulting Agency Comment Spec In Lab Munira Berry APRN CHEMISTRY ORDERABLES [facility] [place] [address] * (ABNORMAL) Differential, Automated (03/02/2024 4:30 AM EDT) Neutrophil % 84.4 % [facility] Neutrophil Absolute 10.79(H) 1.70 - 6.10 x10(3)/mc L [facility] Lymph % 9.7 % [facility] Lymphocytes Abs 1.2 0.9 - 3.2 x10(3)/mc L [facility] Monocyte % 5.1 % [facility] Monocyte Abs 0.6 0.3 - 0.9 x10(3)/mc L [facility] Eos % 0.1 % [facility] Eosinophils Abs 0.0 0.0 - 0.4 x10(3)/mc L [facility] Basophil % 0.2 % [facility] Baso Absolute 0.0 0.0 - 0.1 x10(3)/mc L [facility] Immature Gran % 0.50 % [facility] Comment: Immature granulocytes(IG's)percentage and absolute count will include metamyelocytes, myelocytes, and promyelocytes. Blood smears from CBCs yielding IG's will be scanned manually for concordance. If this scan disagrees with the automated IG or if promyelocytes are noted, a manual differential will be performed. Immature Gran Absolute 0.06(H) 0.00 - 0.04 x10(3)/ L [facility] Blood 03/02/2024 4:30 AM EDT 03/02/2024 4:36 AM EDT Narrative Resulting Agency Comment Spec In Lab Latonia Red MD HEMATOLOGY ORDERABLE S [facility] [place] [address] * (ABNORMAL) Hemogram (03/02/2024 4:30 AM EDT) White Blood Cell 12.8(H) 4.0 - 9.5 x10(3)/[facility] Red Blood Cell 5.41 4.58 - 5.54 x10(6)/[facility] Hemoglobin 13.3(L) 13.7 - 16.5 g/dL [facility] Hematocrit 41.9 40.5 - 48.5 % [facility] Mean Cell Volume 77.4(L) 82.9 - 93.1 fL [facility] Mean Cell Hemoglobin 24.6(L) 27.5 - 32.1 pg [facility] Mean Cell Hemoglobin Concentration 31.7(L) 32.0 - 35.7 g/dL [facility] Platelet 205 145 - 357 x10(3)/[facility] RDW Standard Deviation 41.8 36.0 - 45.0 [facility] RDW coefficient of variation 15.2(H) 11.4 - 13.8 % [facility] Mean Platelet Volume 11.2 7.6 - 12.9 [facility] NRBC% auto 0.0 % [facility] NRBC Absolute 0.000 0.000 - 0.000 x10(3)/[facility] Blood 03/02/2024 4:30 AM EDT 03/02/2024 4:36 AM EDT Narrative Resulting Agency Comment Spec In Lab Latonia Red MD HEMATOLOGY ORDERABLE S [facility] [place] [address] * (ABNORMAL) Comprehensive metabolic panel (non-fasting) (03/02/2024 4:30 AM EDT) Glucose 199 65 - 199 mg/dL [facility] Comment:Diabetes: >=200 mg/d L plus symptoms Blood Urea Nitrogen 11 10 - 20 mg/dL [facility] Creatinine 0.80 0.80 - 1.50 mg/dL [facility] Sodium 135 135 - 145 mmol/L [facility] Potassium 5.0 3.5 - 5.0 mmol/L [facility] Comment: Please note: ??Patients with WBC >100,000 may have falsely elevated Potassium levels. ??For accurate Potassium quantification in these patients send serum separator tube (gold top) for subsequent determinations. ??Contact the Clinical Chemistry Laboratory if there are any questions. Chloride 103 98 - 107 mmol/L [facility] Carbon Dioxide 24 22 - 31 mmol/L [facility] Anion Gap 8 5 - 15 mmol/L [facility] Calcium 7.9(L) 8.5 - 10.5 mg/dL [facility] Protein, Total 5.4(L) 6.1 - 8.0 g/dL [facility] Albumin 2.8(L) 3.2 - 5.2 g/dL [facility] Aspartate Aminotransferase Not Perf 0 - 39 [facility] Comment: Unable to quantitate due to sample hemolysis. ??Sample redraw suggested. Called by: , Read back by: Angelita Ingram, Date/Time:03/02/24 05:18. Alanine Aminotransferase 128(H) 0 - 55 unit/L [facility] Alkaline Phosphatase 97 40 - 130 unit/L [facility] Bilirubin, Total 0.9 0.2 - 1.3 mg/dL [facility] Est Glomerular Filtration Rate 108 >=60 mL/min/1. 73 m?? [facility] Comment: This patient's estimated GFR [...] Hernandez MD CHEMISTRY ORDERABLES Performing Organization Address City/[facility]/ZIP Co de Phone Number [facility] [place] [address] * POCT Glucose (03/02/2024 4:26 AM EDT) Glucose, POC 172 65 - 199 mg/dL [facility] Comment: Supplemental ranges: <140 mg/dL before meals <180 mg/dL all other times of the day Blood 03/02/2024 4:26 AM EDT 03/02/2024 4:26 AM EDT Rudi Hernandez MD POINT OF CARE TEST O RDERABLES [facility] [place] [address] * POCT Glucose (03/02/2024 12:12 AM EDT) Glucose, POC 190 65 - 199 mg/dL [facility] Comment: Supplemental ranges: <140 mg/dL before meals <180 mg/dL all other times of the day Blood 03/02/2024 12:1 2 AM EDT 03/02/2024 12:12 AM EDT Rudi Hernandez MD POINT OF CARE TEST O RDLIAT Performing Organization Address City/[facility] Co de Phone Number [facility] [place] [address] * (ABNORMAL) POCT Glucose (03/01/2024 7:55 PM EDT) Pathologist [facility] Glucose, POC 233(H) 65 - 199 mg/dL [facility] Comment: Supplemental ranges: <140 mg/dL before meals <180 mg/dL all other times of the day Blood 03/01/2024 7:55 PM EDT 03/01/2024 7:55 PM EDT Rudi Hernandez MD POINT OF CARE TEST O ELKIN Performing Organization Address [facility] Co de Phone Number [facility] [place] [address] * (ABNORMAL) Differential, Automated (03/01/2024 7:02 PM EDT) [facility] Neutrophil % 91.5 % [facility] Neutrophil Absolute 14.04(H) 1.70 - 6.10 x10(3)/mc L [facility] Lymph % 3.7 % [facility] Lymphocytes Abs 0.6(L) 0.9 - 3.2 x10(3)/mc L [facility] Monocyte % 4.2 % [facility] Monocyte Abs 0.6 0.3 - 0.9 x10(3)/mc L [facility] Eos % 0.0 % [facility] Eosinophils Abs 0.0 0.0 - 0.4 x10(3)/mc L [facility] Basophil % 0.1 % [facility] Baso Absolute 0.0 0.0 - 0.1 x10(3)/mc L [facility] Immature Gran % 0.50 % [facility] Comment: Immature granulocytes(IG's)percentage and absolute count will include metamyelocytes, myelocytes, and promyelocytes. Blood smears from CBCs yielding IG's will be scanned manually for concordance. If this scan disagrees with the automated IG or if promyelocytes are noted, a manual differential will be performed. Immature Gran Absolute 0.07(H) 0.00 - 0.04 x10(3)/ L [facility] Blood 03/01/2024 7:02 PM EDT 03/01/2024 7:06 PM EDT Narrative Resulting Agency Comment Spec In Lab Latonia Red MD HEMATOLOGY ORDERABLE S [facility] [place] [address] * (ABNORMAL) Hemogram (03/01/2024 7:02 PM EDT) White Blood Cell 15.3(H) 4.0 - 9.5 x10(3)/ L [facility] Red Blood Cell 5.64(H) 4.58 - 5.54 x10(6)/mc L [facility] Hemoglobin 14.1 13.7 - 16.5 g/dL [facility] Hematocrit 43.4 40.5 - 48.5 % [facility] Mean Cell Volume 77.0(L) 82.9 - 93.1 fL [facility] Mean Cell Hemoglobin 25.0(L) 27.5 - 32.1 pg [facility] Mean Cell Hemoglobin Concentration 32.5 32.0 - 35.7 g/dL [facility] Platelet 218 145 - 357 x10(3)/mc L [facility] RDW Standard Deviation 41.1 36.0 - 45.0 fL [facility] RDW coefficient of variation 14.8(H) 11.4 - 13.8 % [facility] Mean Platelet Volume 10.5 7.6 - 12.9 fL [facility] NRBC% auto 0.0 % [facility] NRBC Absolute 0.000 0.000 - 0.000 x10(3)/mc L [facility] Blood 03/01/2024 7:02 PM EDT 03/01/2024 7:06 PM EDT Narrative Resulting Agency Comment Spec In Lab Latonia Red MD HEMATOLOGY ORDERABLE S [facility] [place] [address] * (ABNORMAL) Comprehensive metabolic panel (non-fasting) (03/01/2024 7:02 PM EDT) Glucose 216(H) 65 - 199 mg/dL [facility] [facility] Comment:Diabetes: >=200 mg/d L plus symptoms Blood Urea Nitrogen 9(L) 10 - 20 mg/dL [facility] Creatinine 0.80 0.80 - 1.50 mg/dL [facility] Sodium 135 135 - 145 mmol/L [facility] Potassium 4.9 3.5 - 5.0 mmol/L [facility] Comment: Please note: ??Patients with WBC >100,000 may have falsely elevated Potassium levels. ??For accurate Potassium quantification in these patients send serum separator tube (gold top) for subsequent determinations. ??Contact the Clinical Chemistry Laboratory if there are any questions. Chloride 103 98 - 107 mmol/L [facility] Carbon Dioxide 22 22 - 31 mmol/L [facility] Anion Gap 10 5 - 15 mmol/L [facility] Calcium 8.2(L) 8.5 - 10.5 mg/dL [facility] Protein, Total 5.7(L) 6.1 - 8.0 g/dL [facility] Albumin 3.3 3.2 - 5.2 g/dL [facility] Aspartate Aminotransferase 182(H) 0 - 39 unit/L [facility] Alanine Aminotransferase 148(H) 0 - 55 unit/L [facility] Alkaline Phosphatase 106 40 - 130 unit/L [facility] Bilirubin, Total 2.2(H) 0.2 - 1.3 mg/dL [facility] Est Glomerular Filtration Rate 108 >=60 mL/min/1. 73 m?? [facility] Comment: This patient's estimated GFR [...] In Lab Rudi Hernandez MD CHEMISTRY ORDERABLES [facility] [place] [address] * POCT Glucose (03/01/2024 6:44 PM EDT) Glucose, POC 156 65 - 199 mg/dL [facility] Comment: Supplemental ranges: <140 mg/dL before meals <180 mg/dL all other times of the day Blood 03/01/2024 6:44 PM EDT 03/01/2024 6:44 PM EDT Rudi Hernandez MD POINT OF CARE TEST O RDERABLES [facility] [place] [address] * (ABNORMAL) BLOOD GAS 2 ARTERIAL (03/01/2024 5:49 PM EDT) pH, Arterial 7.40 7.35 - 7.45 [facility] PCO2, Arterial 35 35 - 45 mmHg [facility] PO2, Arterial 188(H) 85 - 104 mmHg [facility] Bicarbonate, Arterial 21.3 20.0 - 26.0 mmol/L [facility] Base Excess, Arterial -3.6(L) -3.0 - 3.0 mmol/L [facility] Hgb Blood Gas 14.6 13.7 - 16.5 g/dL [facility] Oxyhemoglobin, Arterial 97.8(H) 94.0 - 97.0 % [facility] Carboxyhemoglob in, Arterial 1.3 % [facility] Comment: Nonsmokers: 0.5-1.5% COHB Smokers: Variable, but usually less than 10% Toxic: 20-30% COHB Lethal: Greater than 60% COHB Methemoglobin, Arterial 0.3 <=1.5 % [facility] Na Whole Blood 131(L) 135 - 145 mmol/L [facility] K Whole Blood 4.3 3.5 - 5.0 mmol/L [facility] Comment: Please note: Patients with WBC >100,000 may have falsely elevated Potassium levels. Contact the Clinical Chemistry Laboratory if there are any questions. ICa Whole Blood 1.12(L) 1.15 - 1.33 mmol/L [facility] Comment: Note: ??Total bilirubin higher than 20 mg/dL may lead to falsely low ionized calcium. CL Whole Blood 102 98 - 107 mmol/L [facility] Gluc Whole Bld 162 65 - 199 mg/dL [facility] Comment:Diabetes: >=200 mg/d L plus symptoms. Lactate WB 2.2 0.5 - 2.2 mmol/L [facility] Blood 03/01/2024 5:49 PM EDT 03/01/2024 5:49 PM EDT Rudi Hernandez MD POINT OF CARE TEST O RDERABLES Performing Organization Address City/[facility]/ZIP Co de Phone Number [facility] [place] [address] * POCT Glucose (03/01/2024 5:02 PM EDT) Glucose, POC 125 65 - 199 mg/dL [facility] Comment: Supplemental ranges: <140 mg/dL before meals <180 mg/dL all other times of the day Blood 03/01/2024 5:02 PM EDT 03/01/2024 5:02 PM EDT Rudi Hernandez MD POINT OF CARE TEST O RDERABLES Performing Organization Address [facility] Co de Phone Number [facility] [place] [address] * POCT Glucose (03/01/2024 4:07 PM EDT) Glucose, POC 125 65 - 199 mg/dL [facility] Comment: Supplemental ranges: <140 mg/dL before meals <180 mg/dL all other times of the day Blood 03/01/2024 4:07 PM EDT 03/01/2024 4:07 PM EDT Rudi Hernandez MD POINT OF CARE TEST O RDERABLES Performing Organization Address [facility]/ZIP Co de Phone Number [facility] [place] [address] * Specimen to Pathology (03/01/2024 3:40 PM EDT) AP Specimen 03/01/2024 3:40 PM EDT 03/01/2024 3:40 PM EDT Narrative [facility] - 03/01/2024 3:40 PM EDT Specimen requisition ordered. ??Separate Pathology report to follow Rudi Hernandez MD PATHOLOGY/CYTOLOGY O RDERAVANNESSA [facility] [place] [address] * POCT Glucose (03/01/2024 2:58 PM EDT) Glucose, POC 150 65 - 199 mg/dL [facility] Comment: Supplemental ranges: <140 mg/dL before meals <180 mg/dL all other times of the day Blood 03/01/2024 2:58 PM EDT 03/01/2024 2:58 PM EDT Rudi Hernandez MD POINT OF CARE TEST O RDERABLES [facility] [place] [address] * (ABNORMAL) BLOOD GAS 2 ARTERIAL (03/01/2024 2:58 PM EDT) pH, Arterial 7.41 7.35 - 7.45 [facility] PCO2, Arterial 39 35 - 45 mmHg [facility] PO2, Arterial 204(H) 85 - 104 mmHg [facility] Bicarbonate, Arterial 23.9 20.0 - 26.0 mmol/L [facility] Base Excess, Arterial -0.8 -3.0 - 3.0 mmol/L [facility] Hgb Blood Gas 14.5 13.7 - 16.5 g/dL [facility] Oxyhemoglobin, Arterial 98.0(H) 94.0 - 97.0 % [facility] Carboxyhemoglob in, Arterial 1.2 % [facility] Comment: Nonsmokers: 0.5-1.5% COHB Smokers: Variable, but usually less than 10% Toxic: 20-30% COHB Lethal: Greater than 60% COHB Methemoglobin, Arterial 0.3 <=1.5 % [facility] Na Whole Blood 135 135 - 145 mmol/L [facility] K Whole Blood 4.0 3.5 - 5.0 mmol/L [facility] Comment: Please note: Patients with WBC >100,000 may have falsely elevated Potassium levels. Contact the Clinical Chemistry Laboratory if there are any questions. ICa Whole Blood 1.10(L) 1.15 - 1.33 mmol/L [facility] Comment: Note: ??Total bilirubin higher than 20 mg/dL may lead to falsely low ionized calcium. CL Whole Blood 104 98 - 107 mmol/L [facility] Gluc Whole Bld 175 65 - 199 mg/dL [facility] Comment:Diabetes: >=200 mg/d L plus symptoms. Lactate WB 2.1 0.5 - 2.2 mmol/L [facility] Blood 03/01/2024 2:58 PM EDT 03/01/2024 2:58 PM EDT Rudi Hernandez MD POINT OF CARE TEST O ELKIN Performing Organization Address [facility] Co de Phone Number [facility] [place] [address] * POCT Glucose (03/01/2024 2:02 PM EDT) Glucose, POC 147 65 - 199 mg/dL [facility] Comment: Supplemental ranges: <140 mg/dL before meals <180 mg/dL all other times of the day Blood 03/01/2024 2:02 PM EDT 03/01/2024 2:02 PM EDT Rudi Hernandez MD POINT OF CARE TEST O ELKIN Performing Organization Address [facility]/ZIP Co de Phone Number [facility] [place] [address] * POCT Glucose (03/01/2024 1:00 PM EDT) Glucose, POC 138 65 - 199 mg/dL [facility] Comment: Supplemental ranges: <140 mg/dL before meals <180 mg/dL all other times of the day Blood 03/01/2024 1:00 PM EDT 03/01/2024 1:00 PM EDT Rudi Hernandez MD POINT OF CARE TEST O RDERABLES [facility] [place] [address] * Anaerobic Culture (03/01/2024 1:00 PM EDT) Anaerobic Culture No anaerobic organisms isolated [facility] Fluid 03/01/2024 1:00 PM EDT 03/01/2024 4:19 PM EDT Comment:Bile duct culture Narrative Resulting Agency Comment Spec In Lab Rudi Hernandez MD MICROBIOLOGY - GENER AL ORDERABLES Performing Organization Address [facility]/ZIP Co de Phone Number [facility] [place] [address] * Body Fluid Culture, Aerobic (03/01/2024 1:00 PM EDT) Body Fluid Culture No growth [facility] Gram Stain Cytocentrifuge Gram Stain performed No Neutrophils seen. No microorganisms seen. [facility] Fluid 03/01/2024 1:00 PM EDT 03/01/2024 4:19 PM EDT Comment:Bile duct culture Narrative Resulting Agency Comment Spec In Lab Rudi Hernandez MD MICROBIOLOGY - GENER AL ORDERABLES Performing Organization Address [facility]/ZIP Co de Phone Number [facility] [place] [address] * Specimen to Pathology (03/01/2024 12:50 PM EDT) AP Specimen 03/01/2024 12:5 0 PM EDT 03/01/2024 12:50 PM EDT Narrative [facility] - 03/01/2024 12:50 PM EDT Specimen requisition ordered. ??Separate Pathology report to follow Rudi Hernandez MD PATHOLOGY/CYTOLOGY O RDERABLES Performing Organization Address City/[facility]/ZIP Co de Phone Number [facility] [place] [address] * POCT Glucose (03/01/2024 12:01 PM EDT) Glucose, POC 153 65 - 199 mg/dL [facility] Comment: Supplemental ranges: <140 mg/dL before meals <180 mg/dL all other times of the day Blood 03/01/2024 12:0 1 PM EDT 03/01/2024 12:01 PM EDT Rudi Hernandez MD POINT OF CARE TEST O RDERAVANNESSA [facility] [place] [address] * Specimen to Pathology (03/01/2024 11:07 AM EDT) AP Specimen 03/01/2024 11:0 7 AM EDT 03/01/2024 11:07 AM EDT Narrative [facility] - 03/01/2024 11:07 AM EDT Specimen requisition ordered. ??Separate Pathology report to follow Rudi Hernandez MD PATHOLOGY/CYTOLOGY O RDERABLES [facility] [place] [address] * (ABNORMAL) BLOOD GAS 2 ARTERIAL (03/01/2024 10:55 AM EDT) pH, Arterial 7.43 7.35 - 7.45 [facility] PCO2, Arterial 35 35 - 45 mmHg [facility] PO2, Arterial 182(H) 85 - 104 mmHg [facility] Bicarbonate, Arterial 22.9 20.0 - 26.0 mmol/L [facility] Base Excess, Arterial -1.4 -3.0 - 3.0 mmol/L [facility] Hgb Blood Gas 14.5 13.7 - 16.5 g/dL [facility] Oxyhemoglobin, Arterial 98.4(H) 94.0 - 97.0 % [facility] Carboxyhemoglob in, Arterial 0.5 % [facility] Comment: Nonsmokers: 0.5-1.5% COHB Smokers: Variable, but usually less than 10% Toxic: 20-30% COHB Lethal: Greater than 60% COHB Methemoglobin, Arterial 0.3 <=1.5 % [facility] Na Whole Blood 135 135 - 145 mmol/L [facility] K Whole Blood 4.1 3.5 - 5.0 mmol/L [facility] Comment: Please note: Patients with WBC >100,000 may have falsely elevated Potassium levels. Contact the Clinical Chemistry Laboratory if there are any questions. ICa Whole Blood 1.12(L) 1.15 - 1.33 mmol/L [facility] Comment: Note: ??Total bilirubin higher than 20 mg/dL may lead to falsely low ionized calcium. CL Whole Blood 102 98 - 107 mmol/L [facility] Gluc Whole Bld 198 65 - 199 mg/dL [facility] Comment:Diabetes: >=200 mg/d L plus symptoms. Lactate WB 2.0 0.5 - 2.2 mmol/L [facility] Blood 03/01/2024 10:5 5 AM EDT 03/01/2024 10:55 AM EDT Rudi Hernandez MD POINT OF CARE TEST O RDERABLES [facility] [place] [address] * Surgical Pathology Report (03/01/2024 10:49 AM EDT) Final Diagnosis [id number] ? Location: [id number]; 0404; B The signing [...] MD Verified: ??03/10/2024 16:41 ??Pathologist Performed at: ??-[facility] Dept. of Pathology, [place] [address] [employer] Technician: Lee Sutton MD, AP, ??CLIA Certificate: [id number] SYNOPTIC Specimen ? Procedure: ??Pancreaticoduodene ctomy (Whipple [...] ??pT3 ? pN Category: ??pN1 ? [facility] 2021 Q1 Release ADDITIONAL STUDIES Whole slide [...] 2.3 x 2.1 x 1.1 cm ??Description: Red-shi, ulcerated lesion with raised borders ??Relationship to [...] is inked red. . SPECIMEN PROCESSING Sections/Processing: Auxiliary Operator sections in 41 cassettes as follows: [...] 1.4 x 1.0 x 0.7 cm. Sections/Processing: Auxiliary Operator sections to include the entire lymph node are submitted in 1 cassettes as follows: ?C1: ??Single quadrisected lymph node D - Labeled/Fixative: Common hepatic artery lymph node #2, fresh. Quantity/Size: Single, 1.2 x 1.2 x 0.7 cm. Tissue Description: Shi-pink lymph node with minimal attached adipose tissue Sections/Processing: Quadrisected and entirely submitted in 2 cassettes labeled D1-D2. ??jnr 03/10/2024 4:41 PM EDT [facility] LYMPH NODE SPECIMEN / Unknown 03/01/2024 10:49 AM EDT 03/01/2024 10:49 AM EDT PANCREATIC STRUCTURE / Unknown 03/01/2024 10:49 AM EDT 03/01/2024 10:49 AM EDT LYMPH NODE SPECIMEN / Unknown 03/01/2024 10:49 AM EDT 03/01/2024 10:49 AM EDT LYMPH NODE SPECIMEN / Unknown 03/01/2024 10:49 AM EDT 03/01/2024 10:49 AM EDT Rudi Hernandez MD PATHOLOGY/CYTOLOGY O RDERABLES Performing Organization Address City/[facility]/ZIP Co de Phone Number [facility] [place] [address] * Specimen to Pathology (03/01/2024 10:49 AM EDT) AP Specimen 03/01/2024 10:4 9 AM EDT 03/01/2024 10:49 AM EDT Narrative [facility] - 03/01/2024 10:49 AM EDT Specimen requisition ordered. ??Separate Pathology report to follow Rudi Hernandez MD PATHOLOGY/CYTOLOGY O RDERAVANNESSA Performing Organization Address [facility] Co de Phone Number [facility] [place] [address] * POCT Glucose (03/01/2024 9:59 AM EDT) Glucose, POC 178 65 - 199 mg/dL [facility] Comment: Supplemental ranges: <140 mg/dL before meals <180 mg/dL all other times of the day Blood 03/01/2024 9:59 AM EDT 03/01/2024 9:59 AM EDT Rudi Hernandez MD POINT OF CARE TEST O RDERAVANNESSA Performing Organization Address [facility] Co de Phone Number [facility] [place] [address] * Type and Screen Validity (03/01/2024 9:31 AM EDT) T&S only valid at [facility] Comment:This Type and Screen result is only valid at the [facility] Hospital Blood 03/01/2024 9:31 AM EDT 03/01/2024 9:31 AM EDT Narrative Resulting Agency Comment Spec In Lab Rudi Hernandez MD BLOOD BANK LAB ORDER DEDRA [facility] [place] [address] * ABORH Recheck Status (03/01/2024 9:31 AM EDT) ABORH Recheck Order Order Placed [facility] ABORH Type Recheck Completed [facility] Blood 03/01/2024 9:31 AM EDT 03/01/2024 9:31 AM EDT Narrative Resulting Agency Comment Spec In Lab Rudi Hernandez MD BLOOD BANK LAB ORDER DEDRA Performing Organization Address City/[facility]/ZIP Co de Phone Number [facility] [place] [address] * Type and screen ([facility]/CGP/FABIOLA) (03/01/2024 9:31 AM EDT) ABORH Type A POSITIVE [facility] Patient BB History Not Found [facility] Expires at [id number] on: 03/04/2024 [facility] Ab Screen Interp Negative [facility] Blood 03/01/2024 9:31 AM EDT 03/01/2024 9:31 AM EDT Narrative [facility] - 03/01/2024 9:31 AM EDT This Type and Screen result is only valid at the [facility] Hospital Resulting Agency Comment Spec In Lab Rudi Hernandez MD BLOOD BANK LAB ORDER DEDRA [facility] [place] [address] * (ABNORMAL) POCT Glucose (03/01/2024 9:14 AM EDT) Glucose, POC 211(H) 65 - 199 mg/dL [facility] Comment: Supplemental ranges: <140 mg/dL before meals <180 mg/dL all other times of the day Blood 03/01/2024 9:14 AM EDT 03/01/2024 9:14 AM EDT Rudi Hernandez MD POINT OF CARE TEST O RDERABLES [facility] [place] [address] * (ABNORMAL) BLOOD GAS 2 ARTERIAL (03/01/2024 8:39 AM EDT) pH, Arterial 7.38 7.35 - 7.45 [facility] PCO2, Arterial 37 35 - 45 mmHg [facility] PO2, Arterial 223(H) 85 - 104 mmHg [facility] Bicarbonate, Arterial 21.8 20.0 - 26.0 mmol/L [facility] Base Excess, Arterial -3.3(L) -3.0 - 3.0 mmol/L [facility] Hgb Blood Gas 13.3(L) 13.7 - 16.5 g/dL [facility] Oxyhemoglobin, Arterial 98.4(H) 94.0 - 97.0 % [facility] Carboxyhemoglob in, Arterial 0.9 % [facility] Comment: Nonsmokers: 0.5-1.5% COHB Smokers: Variable, but usually less than 10% Toxic: 20-30% COHB Lethal: Greater than 60% COHB Methemoglobin, Arterial 0.3 <=1.5 % [facility] Na Whole Blood 131(L) 135 - 145 mmol/L [facility] K Whole Blood 3.7 3.5 - 5.0 mmol/L [facility] Comment: Please note: Patients with WBC >100,000 may have falsely elevated Potassium levels. Contact the Clinical Chemistry Laboratory if there are any questions. ICa Whole Blood 1.10(L) 1.15 - 1.33 mmol/L [facility] Comment: Note: ??Total bilirubin higher than 20 mg/dL may lead to falsely low ionized calcium. CL Whole Blood 101 98 - 107 mmol/L [facility] Gluc Whole Bld 250(H) 65 - 199 mg/dL [facility] Comment:Diabetes: >=200 mg/d L plus symptoms. Lactate WB 1.1 0.5 - 2.2 mmol/L [facility] Blood 03/01/2024 8:39 AM EDT 03/01/2024 8:39 AM EDT Rudi Hernandez MD POINT OF CARE TEST O RDERABLES [facility] [place] [address] * XR Fluoro No Rad <1Hr - OR Use (03/01/2024 7:45 AM EDT) Narrative Dicom, Auditing User - 03/01/2024 7:45 AM EDT This exam is auto-finalizing. No interpretation was done. Shyla Bird MD IMG FLUORO BENJI IVEY * (ABNORMAL) Creatinine (03/01/2024 7:04 AM EDT) Creatinine 0.77(L) 0.80 - 1.50 mg/dL [facility] Est Glomerular Filtration Rate 110 >=60 mL/min/1. 73 m?? [facility] Comment: This patient's estimated GFR [...] Hernandez MD CHEMISTRY ORDERABLES Performing Organization Address [facility] Co de Phone Number [facility] [place] [address] * (ABNORMAL) POCT Glucose (03/01/2024 7:03 AM EDT) Glucose, POC 207(H) 65 - 199 mg/dL [facility] Comment: Supplemental ranges: <140 mg/dL before meals <180 mg/dL all other times of the day Blood 03/01/2024 7:03 AM EDT 03/01/2024 7:03 AM EDT Rudi Hernandez MD POINT OF CARE TEST O RDERABLES Performing Organization Address [facility] Co de Phone Number [facility] [place] [address] documented in this encounter Visit Diagnoses Not on filedocumented in this encounter 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 When ordered for pain, acetaminophen should be given even when other ordered pain medications are indicated., Routine Given 03/08/2024 11:56 AM EDT 975 mg Given 03/08/2024 5:14 AM EDT 975 mg Given 03/07/2024 11:49 PM EDT 975 mg amLODIPine (Norvasc) tablet 10 mg 10 mg, Oral, DAILY, First dose on Fri03/05/24 at 0900, Until Discontinued, Routine Given 03/08/2024 8:32 AM EDT 10 mg Given 03/07/2024 9:05 AM EDT 10 mg Given 03/06/2024 8:40 AM EDT 10 mg bisacodyL (Dulcolax) suppository 10 mg 10 mg, Rectal, DAILY PRN, Starting on Fri03/05/24 at 0718, Until Fri03/08/24 at 1701, Constipation, Routine citalopram (CeleXA) tablet 40 mg 40 mg, [...] insulin orders before administering the next dose. enoxaparin (Lovenox) (40 mg/0.4 mL) subcutaneous injection 40 mg 40 mg, Subcutaneous, NIGHTLY, First dose on Fri03/01/24 at 2100, Until Discontinued, Routine Given 03/07/2024 8:37 PM EDT 40 mg Given 03/06/2024 10:00 PM EDT 40 mg Given 03/05/2024 8:02 PM EDT 40 mg furosemide (Lasix) tablet 40 mg 40 [...] Given 03/07/2024 4:40 PM EDT 0.3 mg insulin glargine-ygfn (Semglee) (100 unit/mL) subcutaneous injection [...] Given 03/08/2024 12:07 AM EDT 1 Units labetaloL (Normodyne) (5 mg/mL) injection solution 20 [...] Given 03/07/2024 11:57 PM EDT 20 mg lidocaine (Lidoderm) 5% patch 1 patch 1 [...] Given 03/07/2024 11:50 PM EDT 0.5 mg oxyCODONE (Roxicodone) tablet 5-10 mg 5-10 [...] 03/07/2024 10:37 AM EDT 5 mg pantoprazole EC (Protonix) tablet 40 mg [...] Given 03/05/2024 8:31 AM EDT 17 g prochlorperazine (Compazine) (5 mg/mL) injection 10 mg 10 mg, Intravenous, EVERY 6 HOURS PRN, Starting on 03/06/24 at 0417, Until 03/08/24 at 1701, Nausea, for nausea or vomiting, Routine Given 03/08/2024 7:06 AM EDT 10 mg Given 03/07/2024 5:42 PM EDT 10 mg Given 03/07/2024 12:15 AM EDT 10 mg senna-docusate (Pericolace) 8.6-50 mg per tablet 2 tablet 2 tablet, Oral, 2 TIMES DAILY, First dose on Fri03/04/24 at 1315, Until Discontinued, Routine Given 03/08/2024 [...] Given 03/04/2024 8:38 AM EDT 5 mLs documented in this encounter Active and Recently [...] Katelynn Unger RN)1209 (Given - Provider: Dilma Dominique RN)1712 (Given - Provider: Dilma Dominique RN) 0000 (Given - Provider: Scotty Dela Cruz RN)0653 (Given - Provider: Scotty Dela Cruz RN)1217 (Given - Provider: Bernadette Ford, GRETCHEN)1737 (Given - Provider: Bernadette Ford, GRETCHEN)2349 (Given - Provider: Nahomi Toussaint, GRETCHEN) 0514 (Given - Provider: Nahomi Toussaint, GRETCHEN)1156 (Given - Provider: Mae Velazquez, GRETCHEN) amLODIPine (Norvasc) tablet 10 mg 10 mg, Oral, DAILY, First dose on Fri03/05/24 at 0900, Until Discontinued, Routine 0840 (Given - Provider: Dilma Dominique RN) 0905 (Given - Provider: Bernadette Ford, GRETCHEN) 0832 (Given - Provider: Mae Velazquez, GRETCHEN) bisacodyL (Dulcolax) suppository 10 mg (COMPLETED) 10 mg, Rectal, ONCE, 1 dose, On 03/06/24 at 0930, Routine 1209 (Given - Provider: Dilma Dominique, GRETCHEN) citalopram (CeleXA) tablet 10 mg (CANCELED) 10 [...] on Fri03/01/24 at 2100, Until Discontinued, Routine 2199 (Given - Provider: Scotty Dela Cruz RN) 2036 (Given - Provider: Nahomi Toussaint, GRETCHEN) furosemide (Lasix) tablet 40 mg 40 mg, Oral, 2 TIMES DAILY, First dose on Fri03/04/24 at 0915, Until Discontinued, Routine 0841 (Given - Provider: Dilma Dominique RN)1712 (Given - Provider: Dilma Dominique, GRETCHEN) 0905 (Given - Provider: Bernadette Ford, GRETCHEN)1643 (Given - Provider: Bernadette Ford, GRETCHEN) 0832 (Given - Provider: Mae Velazquez RN) insulin glargine-ygfn (Semglee) (100 unit/mL) subcutaneous injection vial 10 Units (CANCELED) 10 Units, Subcutaneous, NIGHTLY, First dose (after last modification) on Fri03/04/24 at 2100, Until Discontinued, Routine 2199 (Given - Provider: Scotty Dela Cruz, GRETCHEN) 2038 (Given - Provider: Nahomi Toussaint, GRETCHEN) insulin glargine-ygfn (Semglee) (100 unit/mL) subcutaneous injection [...] - Provider: Bernadette Ford RN - Comment: [phone] (Given - Provider: Nahomi Toussaint RN) 0007 [...] RN)1218 (Patch Removed - Provider: Bernadette Ford RN)2038 (Patch Applied - Provider: Nahomi Toussaint RN) [...] Routine 1642 (Patch Applied - Provider: Bernadette Ford, RN) 0442 (Patch Removed - Provider: Nahomi Toussaint, GRETCHEN) pantoprazole EC (Protonix) tablet 40 mg 40 mg, Oral, 2 TIMES DAILY, First dose on Fri03/05/24 at 0900, Until Discontinued, DO NOT CRUSH OR OPEN, Routine 0841 (Given - Provider: Dilma Dominique, RN)2200 (Given - Provider: Scotty Dela Cruz RN) 09 (Given - Provider: Bernadette Ford, GRETCHEN)2037 (Given - Provider: Nahomi Toussaint, GRETCHEN) 0832 (Given - Provider: Mae Velazquez, RN) polyethylene glycoL (Miralax) packet 17 g 17 g, Oral, DAILY, First dose on Fri03/05/24 at 0900, Until Discontinued, Routine 0900 (Not Given - Provider: Dilma Dominique, GRETCHEN - Reason: Contraindicated) 0906 (Given - Provider: Bernadette Ford, GRETCHEN) 0900 (Not Given - Provider: Mae Velazquez, GRETHCEN - Reason: Patient/family refused) potassium chloride 10 [...] Dilma Dominique RN)0937 (Stopped - Provider: Dilma Dominique, GRETCHEN)0959 (New Bag - Provider: Dilma Dominique, GRETCHEN)1059 (Stopped - Provider: Dilma Dominique, GRETCHEN)1209 (New Bag - Provider: Dilma Dominique, GRETCHEN)1309 (Stopped - Provider: Dilma Dominique, RN)1404 (New Bag - Provider: Dilma Dominique, RN)1504 (Stopped - Provider: Dilma Dominique RN) potassium [...] TIMES DAILY, First dose on Fri03/04/24 at 1315, Until Discontinued, Routine 0840 (Given - Provider: Dilma Dominique RN)2200 (Given - Provider: Scotty Dela Cruz, GRETCHEN) 09 (Given - Provider: Bernadette Ford, GRETCHEN)203 (Given - Provider: Nahomi Toussaint, GRETCHEN) 0832 (Given - Provider: Mae Velazquez, RN) sodium chloride 0.9 % (flush) (BD PosiFlush Normal Saline 0.9) flush 5 mL 5 mL, Intravenous, 2 TIMES DAILY, First dose on Fri03/01/24 at 2100, Until Discontinued, Recovery (Recovery-Hospital Unit), Routine 0841 (Given - Provider: Dilma Dominique, GRETCHEN)2100 (Not Given - Provider: Scotty Dela Cruz, GRETCHEN - Reason: Patient/family refused) 09 (Given - Provider: Bernadette Ford, GRETCHEN)204 (Given - Provider: Nahomi Toussaint, RN) 0900 (Given - Provider: Mae Velazquez, RN) sodium chloride 0.9% 500 mL IV bolus [...] on a programmed frequency, Recovery (Recovery-Hospital Unit) 1168 (New Bag - Provider: Scotty Dela Cruz [...] on a programmed frequency, Recovery (Recovery-Hospital Unit) 0841 (Rate/Dose Change - Provider: Bernadette Ford, GRETCHEN)1026 (Stopped - Provider: Bernadette Ford, RN) PRN Medication Order 03/06/2024 03/07/2024 03/08/2024 [...] on 5011 1612 (Given - Provider: Bernadette Ford RN) 0201 (Given - Provider: Nahomi Toussaint, GRETCHEN)0515 (Given - Provider: Nahomi Toussaint RN) HYDROmorphone (Dilaudid) (0.5 mg/0.5 mL) injection syringe 0.3 mg 0.3 mg, Intravenous, EVERY 4 HOURS PRN, Starting on Fri03/07/24 at 1620, Until Fri03/08/24 at 1701, Pain, for moderate to severe pain (4-10) not controlled with Tylenol and Oxycodone, Routine 1640 (Given - Provider: Bernadette Ford RN) labetaloL (Normodyne) (5 mg/mL) injection solution 20 [...] , Routine 1036 (Given - Provider: Bernadette Ford RN)1517 (Given - Provider: Bernadette Ford RN)1850 (Given [...] Insomnia, Routine 2350 (Given - Provider: Nahomi Toussaint, GRETCHEN) oxyCODONE (Roxicodone) tablet 5 mg (CANCELED) 5 mg, Oral, EVERY 4 HOURS PRN, Starting on Aline 03/04/24 at 0826, Until 03/07/24 at 0837, Pain, Routine 0545 (Given - Provider: Katelynn Unger, GRETCHEN) oxyCODONE (Roxicodone) tablet 5-10 mg 5-10 mg, Oral, EVERY 4 HOURS PRN, Starting on 03/07/24 at 0836, Until 03/08/24 at 1701, Pain, 5mg for moderate pain 4-6 not controlled with Tylenol, 10mg for severe pain 7-10 not controlled with Tylenol, Routine 1037 (Given - Provider: Bernadette Ford, GRETCHEN)1436 (Given - Provider: Bernadette Ford, GRETCHEN)1517 (Given - Provider: Bernadette Ford, GRETCHEN) prochlorperazine (Compazine) (5 mg/mL) injection 10 mg 10 mg, Intravenous, EVERY 6 HOURS PRN, Starting on 03/06/24 at 0417, Until 03/08/24 at 1701, Nausea, for nausea or vomiting, Routine 0430 (Given - Provider: Katelynn Unger, GRETCHEN) 0015 (Given - Provider: Scotty Dela Cruz RN)1742 (Given - Provider: Bernadette Ford, GRETCHEN) 0706 (Given - Provider: Nahomi Toussaint, GRETCHEN) sodium chloride 0.9 % (flush) (BD PosiFlush Normal Saline 0.9) flush 5-20 mL 5-20 mL, Intravenous, EVERY 1 MIN PRN, Starting on 03/01/24 at 1924, Until 03/08/24 at 1701, flush, Flush pertains to all indwelling lines. Flush per protocol found in the job aid using the link provided on this medication record., Recovery (Recovery-Hospital Unit), Routine Linked Groups Order Group 1: POCT Fingerstick Glucose (CANCELED) Routine, EVERY 4 HOURS, First occurrence on 03/01/24 at 1925, Until Specified, Consider choosing EVERY [...] EVERY 4 HOURS SCHEDULED, First dose on 03/01/24 at 2000, Until Discontinued, CORRECTION BOLUS [1-4 [...] Routine documented in this encounter Care Teams Emergency Manager Relationship Specialty Start Date End Date Olga Hoffman APRN [address] [place] [address] PCP - General Family Medicine 10/30/22 documented as of this encounter
--- OUTSIDE RECORDS SUMMARY | 2024-05-21 01:12 | XMS_ITS | Encounter Summary ---
Author Organization [facility] [place] [id number] Care Team Providers Care Recycling Tech Name Role Phone Olga Hoffman APRN Primary Care Provider [phone] Reason for Visit * Consultation (Routine) - Closed Specialty Diagnoses / Procedures Referred By Janak t Referred To Contact Gastroenterology Diagnoses CHAN (nonalcoholic steatohepatitis) Eugenia Barrera APRN [facility] [place] [address] [facility] [place] [address] Referral ID Status Reason Start Date Expiration Date V isits Requested Visits Authorized [id number] Closed Continuity of Care 01/24/2023 01/24/2024 1 1 Encounter Details Date Type Department Care Team (Late st Contact Info) Description 02/25/2023 9:00 AM EDT TH Visit (TeleHealth) [place] [address] [facility] [place] [address] CHAN (nonalcoholic steatohepatitis) Social History Tobacco Use Types Packs/Day Years Used Date Smoking Tobacco: Never Smokeless Tobacco: Never Alcohol Use Standard Drinks/Week Comments Not Currently 0 (1 standard drink = 0.6 oz pur e alcohol) Overall Financial Resource Strain (CARDIA) Junie perez Date Recorded How hard is it for [...] this encounter Patient Instructions * Patient Instructions* Sheila Amaya, RD - 02/25/2023 9:00 AM EDT It was great to chat with you, Charles. Below are recommendations discussed today. Please reach out with a Yelago message if you have any questions or concerns. Recommendations/Plan: -Take 1 or 2 days a week or use the weekend to focus on healthier meals. Add a fruit and vegetable to each day to start building the habit. -Bring more foods to work, making sure to eat 3 meals. At home a bagged salad with chicken is an easy way to have a healthy meal without cooking 2 different meals -Try a meal prep service like Hello Fresh, Blue Apron, Daily [employer]. Can pick 1 or 2 days or the whole week -Focus, most of the time, on whole grains, fruits an vegetables, ;lean protein like fish, eggs, dairy (can do lactose-free dairy), nuts and seeds -Set a timer for lunch break Sheila documented in this encounter Progress Notes * Sheila Amaya RD - 02/25/2023 9:00 AM EDT Nutrition Reason for visit: CHAN Location of patient: [place] Wt Readings from Last 5 Encounters: 01/24/23 125.7 kg (277 lb 1.6 oz) 01/06/23 124.3 kg (274 lb) 12/25/22 124.6 kg (274 lb 11.2 oz) 12/12/21 130.6 kg (288 lb) 12/22/18 (!) 139.5 kg (307 lb 9.6 oz) Ht Readings from Last 5 Encounters: 01/24/23 188 cm (6' 2) 01/06/23 188 cm (6' 2) 12/25/22 188 cm (6' 2) 12/12/21 188 cm (6' 2) 12/22/18 188 cm (6' 2) There is no height or weight on file to calculate BMI. No outpatient medications have been marked as taking for the 02/25/23 encounter (TH Visit (TeleHealth)) with Sheila Amaya. Meds Include: Trulicity-has dcr Diet Recall: Breakfast Coffee. Missed breakfast 2 donuts. Often misses B. 2 sausage biscuits and coffee Snack Lunch Will skip lunch if has B. Subway-salad or vending machine. PM Snack Dinner Varies. Eggs, sausage. HS Snack Fluids: should be drinking water, some soda. Coffee. Evaluation: Charles Nick is a 47 y.o. 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 His metabolic risks include hypertension and diabetes. Liver biopsy which shows stage II of fibrosis and steatohepatitis. Charles has been having a difficult time implementing the Mediterranean diet; he is allergic to tomatoes, lactose intolerant, doesn't like olives, olive oil is ok. Discussed that a diet low in processed foods and high in whole foods is most beneficial, he can choose what veg and fruit to eat, focus on whole grains, lean proteins. Starting slowly and adding one or two healthy foods a week, and bring ing simple foods from home can be a good place to start. Dax noted he could make eggs at home, bring oatmeal to work and snack on nuts. He can set a timer for his lunch break so he remembers to eat. He is a single dad to 3 pre-teen kids, works FT. Nany has helped, though has some nausea, it does help to have a meal. Diet Reviewed: Less processed, more whole foods Recommendations/Plan: -Take 1 or 2 days a week or use the weekend to focus on healthier meals. Add a fruit and vegetable to each day to start building the habit. -Bring more foods to work, making sure to eat 3 meals. At home a bagged salad with chicken is an easy way to have a healthy meal without cooking 2 different meals -Try a meal prep service like [employer], [employer] Apr[employer], [employer]. Can pick 1 or 2 days or the whole week -Focus, most of the time, on whole grains, fruits an vegetables, ;lean protein like fish, eggs, dairy (can do lactose-free dairy), nuts and seeds -Set a timer for lunch break Time Spent with Patient: 25 minutes documented in this encounter Plan of Treatment Upcoming Encounters Date Type Department Care Team (Late st Contact Info) Description 05/21/2024 9:00 AM EDT Office Visit [place] [address] Nighat López MD [facility] [place] [address] 05/28/2024 8:00 AM EDT Office Visit Hematology/Oncology at [address] [phone] Rodriguez Fowler MD [facility] [address] Sherry Cedillo APRN [address] [place] [address] DR HEMATOLOGY AND ONCOLOGY [place], [place] [id number] 05/28/2024 8:30 AM EDT Infusion Hematology Oncology at [address] [phone] 05/28/2024 9:30 AM EDT Clinical Support Hematology/Oncology at [address] [phone] Leah Rose, RD [facility] DR HEMATOLOGY [place] [address] Scheduled Referrals Name Type Priority Associated Diagnoses Orde r Schedule Referral to Nutrition Services Outpatient Referral Routine CHAN (nonalcoholic steatohepatitis) Ordered: 01/24/2023 documented as of this encounter Visit Diagnoses Diagnosis CHAN (nonalcoholic steatohepatitis) Other chronic nonalcoholic liver disease documented in this encounter Care Teams Recycling Tech Relationship Specialty Start Date End Date Olga Hoffman APRN [address] [place] [address] PCP - General Family Medicine 10/30/22 documented as of this encounter
--- OUTSIDE RECORDS SUMMARY | 2024-05-21 01:12 | XMS_ITS | Encounter Summary ---
Author Organization [facility] Address [facility] [place] [address] Care Team Providers Care Animal Trainer Supervisor Name Role Phone Olga Hoffman APRN Primary Care Provider [phone] Encounter Details Date Type Department Care Team (Latest Contact Info) Description 01/23/2023 Travel Social History Tobacco Use Types Packs/Day [...] in a longterm (including now)? No 01/23/2023 Sex and Gender Information Value Date Recorded Sex Assigned at Not on file Gender Identity Not on file Sexual Orientation Not on file documented as of this encounter Plan of Treatment Upcoming Encounters Date Type Department Care Team (Late st Contact Info) Description 05/21/2024 9:00 AM EDT Office [place] [address] Nighat López MD [facility] [place] [address] 05/28/2024 8:00 AM EDT Office Visit Hematology/Oncology at [address] [phone] Rodriguez Fowler MD [facility] [place] [address] Sherry Cedillo APRN [address] [place] [address] DR HEMATOLOGY AND ONCOLOGY [place], [place] [id number] 05/28/2024 8:30 AM EDT Infusion Hematology Oncology at [address] [phone] 05/28/2024 9:30 AM EDT Clinical Support Hematology/Oncology at [address] [phone] [facility] DR [place] [address] documented as of this encounter Visit Diagnoses Not on filedocumented in this encounter Care Teams Animal Trainer Supervisor Relationship Specialty Start Date End Date Olga Hoffman APRN [address] [place] [address] PCP - General Family Medicine 10/30/22 documented as of this encounter
--- OUTSIDE RECORDS SUMMARY | 2024-05-21 01:12 | XMS_ITS | Encounter Summary ---
Author Organization [facility] [place] [address] Care Team Providers Care Preform Machine Operator Name Role Phone Olga Hoffman APRN Primary Care Provider [phone] Encounter Details Date Type Department Care Team (Late st Contact Info) Description 03/14/2023 Telephone [place] [address] Gabriela Hyde Social History Tobacco Use Types Packs/Day Years [...] encounter Miscellaneous Notes * Telephone Encounter - Gabriela Hyde - 03/14/2023 4:30 PM EDT Called pt and LVM pt needs - Follow up in 6 months with blood work on same day prior per Heydi lópez around 07/27/23 RECALL IN documented in this encounter Plan of Treatment Upcoming Encounters Date Type Department Care Team (Late st Contact Info) Description 05/21/2024 9:00 AM EDT Office [place] [address] Nighat López MD [facility] [place] [address] 05/28/2024 8:00 AM EDT Office Visit Hematology/Oncology at [address] [phone] Rodriguez Fowler MD [facility] [place] [address] Sherry Cedillo APRN [address] [place] [address] DR HEMATOLOGY AND ONCOLOGY [place], [place] [address] 05/28/2024 8:30 AM EDT Infusion Hematology Oncology at [address] [phone] 05/28/2024 9:30 AM EDT Clinical Support Hematology/Oncology at [address] [phone] Leah Rose, ARASH [facility] [place] [address] documented as of this encounter Visit Diagnoses Not on filedocumented in this encounter Care Teams Preform Machine Operator Relationship Specialty Start Date End Date Olga Hoffman, SALES REPRESENTATIVE PUBLICATIONS [address] [place] [address] PCP - General Family Medicine 10/30/22 documented as of this encounter
--- OUTSIDE RECORDS SUMMARY | 2024-05-21 01:12 | XMS_ITS | Encounter Summary ---
[facility] [place] [address] Care Team Providers Care Senior Analysis Specialist Name Role Phone Olga Hoffman APRN Primary Care Provider [phone] Reason for Visit * Reason Comments Establish Care * Consultation (Urgent) - Authorized Specialty Diagnoses / Procedures Referred By Janak holland Referred To Contact General Surgery Diagnoses Adenocarcinoma of duodenum Jaki Phillips, DO [address] [place] [address] [place] [id number] [facility] [address] [address] Referral ID Status Reason Start Date Expiration Date Visits Requested Visits Authorized [id number] Authorized Consult, Test & Treat PCP Updated and/or Approved 01/09/2024 01/08/2025 6 6 Encounter Details Date Type Department Care Team (Late st Contact Info) Description 02/03/2024 1:00 PM EDT Office [place] [address] Rudi Hernandez MD [facility] [place] [address] Duodenal cancer; Class 2 severe obesity with serious comorbidity and body mass index (BMI) of 37.0 to 37.9 in adult, unspecified obesity type Social History Tobacco Use Types Packs/Day Years [...] Sign Reading Time Taken Comments Blood Pressure 139/93 02/03/2024 12:56 PM EDT Pulse 91 02/03/2024 12:56 PM EDT Temperature - - Respiratory Rate 16 02/03/2024 12:5 6 PM EDT Oxygen Saturation 99% 02/03/2024 12: 56 PM EDT Inhaled Oxygen Concentration - - Weight 131.5 kg (289 lb 12.8 oz) 2023 12:56 PM EDT Height 188 cm (6' 2) 02/03/2024 12:56 PM EDT Body Mass Index 37.21 02/03/2024 12:56 PM EDT documented in this encounter Progress Notes * Rudi Hernandez MD - 02/03/2024 1:00 PM EDT Images from the original note were not included. Department of General Surgery Surgical Oncology Consultation Note CC: duodenal adenocarcinoma I am seeing Charles Nick in consultation for duodenal adenocarcinoma, he was referred to me by Dr. Jaki Phillips. In preparation for today's visit I have reviewed the following PET scan 01/27/2024, MR abdomen 01/26/2024, CT 09/23/2022, pathology report and endoscopy report. 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 Briefly,Edu experienced back pain a year prior which prompted a CT scan which was notable for some thickening by the duodenum. The patient ultimately underwent an EGD and at that time was found to have apedunculated polyp which was biopsied and was a tubular villous adenoma with no signs of malignancy. He underwent a repeat EGD at 1 year for surveillance and was noted to have a sessile polyp in the location of his prior pedunculated polyp this was again biopsied and has returned as moderately diffe rentiated adenocarcinoma with lymphovascular invasion. Edu denies any unintentional weight lossany changes to his bowel or bladder habits. He is quite anxious today and does report some intermittent right-sided abdominal discomfort. PMHx: Class II obesity Chronic kidney disease stage III Fatty liver disease, biopsy-proven Diabetes PSHx: No abdominal surgeries ALL: Allergies Allergen Reactions Penicillins Rash MED: cyanocobalamin, Vitamin B-12, (Vitamin B-12) 100 mcg tablet ondansetron ODT (Zofran-ODT) 4 mg disintegrating tablet Trulicity 0.75 mg/0.5 mL Pen Injector citalopram (CeleXA) 10 mg tablet famotidine (Pepcid) 20 mg tablet tadalafiL (CIALIS) 10 mg Tablet gabapentin (NEURONTIN) 600 mg Tablet furosemide (Lasix) 20 mg Tablet metFORMIN (GLUCOPHAGE) 1,000 mg Tablet Social history: Originally from [place] Non-smoker Lives with partner and 2 dogs 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 No evidence pulmonary embolism, thoracic aortic dissection or aneurysm. 2. No acute pulmonary process 3. Question of mild wall thickening in the small bowel which may represent enteritis. Please correlate clinically MR abdomen 01/26/2024 Outside read from [facility] 1. 2 cm mass seen in the descending duodenum. 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 2. 5 mm nodule along the posterior wall of the loop of small bowel in the central abdomen. This maysimply be enteric content versus mass. 3. No evidence of abdominal metastatic disease MR pelvis 01/1324 Outside read from [facility] Impression: 1. Questionable of proximal sigmoid colon polyp. Colonoscopy is recommended for further evaluation.#2 no evidence of pelvic metastatic disease PET scan 01/29/2024 IMPRESSION 1. FDG-avid lesion in the proximal descending duodenum is compatible with duodenal adenocarcinoma. 2. Multiple FDG-avid lymph nodes in the left upper neck, unlikely to be related to duodenal lesion, probably inflammatory. Attention on follow-up. Endoscopy report: 01/01/2024 Findings: Sessile type polyp arising in the posterior wall of the duodenal bulb at the junction with the first portion of the duodenum. Pathology: 01/02/2024 1. Small Intestine, duodenal polyp: - Invasive moderately differentiated adenocarcinoma. - Lymphovascular invasion is present (supported with outside submitted ERG and CD31 immunostains). 12/05/2022 Duodenal polyp biopsy Tubulovillous adenoma Negative for malignancy Labs: CEA 1.4 Assessment and Plan: Charles Nick is a 48-year-old gentleman with a history of hypertension, chronic kidney disease, biopsy-proven fatty liver disease, [facility], with a newly diagnosed duodenal adenocarcinoma. [...] think is a contraindication for him to g et IV contrast for surgical planning. A surgical consent was signed in clinic and he is scheduled for a [facility] on 03/01/2024. -CT scan abdomen pelvis, patient prefers that this be done locally at [facility]. I will place an external order and will request that the images be sent within the next week or 2. -Patient is on Trulicity which she will have to stop prior to surgery Please excuse any typographical and/or grammatical errors, dragon dictation was used to complete this note. Rudi Hernandez MD, MS Surgical Oncology 02/03/2024 12:48 PM documented in this encounter Plan of Treatment Upcoming Encounters Date Type Department Care Team (Late st Contact Info) Description 05/21/2024 9:00 AM EDT Office [place] [address] Nighat López MD [facility] [place] [address] 05/28/2024 8:00 AM EDT Office Visit Hematology/Oncology at [address] [phone] Rodriguez Fowler MD [facility] [place] [address] Sherry Cedillo APRN [address] [place] [address] [place] [address] 05/28/2024 8:30 AM EDT Infusion Hematology Oncology at [address] [phone] 05/28/2024 9:30 AM EDT Clinical Support Hematology/Oncology at [address] [phone] Leah Rose, ARASH [facility] DR HEMATOLOGY [place] [address] documented as of this encounter Procedures Procedure Name Priority Date/Time Associated Diagnosis Comments CEA Routine 02/03/2024 2:28 PM EDT Duodenal cancer documented in this encounter Results * CEA (02/03/2024 2:28 PM EDT) Carcinoembryonic Antigen 1.4 <=3.8 ng/mL [facility] Comment: Reference range: ??(20-69 years): Non-smoker: ??less than or equal to 3.8 ng/mL Smoker: ??less than 5.5 ng/ml This result was generated using a Amanda Bonifacio immunoassay. ??Results obtained from other methods or manufacturers cannot be used interchangeably with this method. Blood 02/03/2024 2:28 PM EDT 02/03/2024 2:52 PM EDT Narrative Resulting Agency Comment Spec In Lab Rudi Hernandez MD CHEMISTRY ORDERABLES [facility] [place] [address] documented in this encounter Visit Diagnoses Diagnosis Duodenal cancer Malignant neoplasm of duodenum Class 2 severe obesity with serious comorbidity and body mass index (BMI) of 37.0 to 37.9 in adult, unspecified obesity type documented in this encounter Care Teams Senior Analysis Specialist Relationship Specialty Start Date End Date Olga Hoffman APRN [address] [place] [address] PCP - General Family Medicine 10/30/22 documented as of this encounter
--- OUTSIDE RECORDS SUMMARY | 2024-05-21 01:12 | XMS_ITS | Encounter Summary ---
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 No 01/23/2023 Sex and Gender Information Value Date Recorded Sex Assigned at Not on file Gender Identity Not on file Sexual Orientation Not on file documented as of this encounter Medications at Time of Discharge Medication Sig Dispensed Refills Start Date End Date citalopram (CeleXA) 10 mg tablet Take 10 [...] 9:00 AM EDT Office [place] [address] Nighat López MD [facility] [place] [address] 05/28/2024 8:00 AM EDT Office Visit Hematology/Oncology at [address] [phone] Rodriguze Fowler MD [facility] [place] [address] Sherry Cedillo APRN [address] [place] [address] DR HEMATOLOGY AND ONCOLOGY [place], [place] [phone] 05/28/2024 8:30 AM EDT Infusion Hematology Oncology at [address] [phone] 05/28/2024 9:30 AM EDT Clinical Support Hematology/Oncology at [address] [phone] Leah Rose, ARASH [facility] [place] [address] Scheduled Orders Name Type Priority Associated Diagnoses Orde r Schedule Comprehensive metabolic panel (non-fasting) Lab Routine CHAN (nonalcoholic steatohepatitis) 1 Occurrences starting 01/24/2023 until 01/24/2023 CBC (with Diff) Lab Routine Erythrocytosis Microcytosis 1 Occurrences starting 01/24/2023 until 01/24/2023 documented as of this encounter Procedures Procedure Name Priority Date/Time Associated Diagnosis Comments JAK2 V617F, EXON12, AND OTHER NON-V617F MUTATION ANALYSIS Routine 01/24/2023 10:42 AM EDT Erythrocytosis Microcytosis PTH Routine 01/24/2023 10:42 AM EDT Type 2 diabetes mellitus with diabetic nephropathy, 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 Obesity due to excess calories with serious comorbidity, unspecified classification HEMOGRAM Routine 01/24/2023 10:42 AM EDT Type 2 diabetes mellitus with diabetic nephropathy, 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 Obesity due to excess calories with serious comorbidity, unspecified classification DIFFERENTIAL, AUTOMATED Routine 01/24/2023 10:42 AM EDT Type 2 diabetes mellitus with diabetic nephropathy, 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 Obesity due to excess calories with serious comorbidity, unspecified classification ERYTHROPOIETIN LEVEL Routine 01/24/2023 10:42 AM EDT Erythrocytosis Microcytosis IRON AND TIBC Routine 01/24/2023 10:42 AM EDT Erythrocytosis Microcytosis HC RETIC,AUTO INCLUDES RETHE & IRF Routine 01/24/2023 10:42 AM EDT Erythrocytosis Microcytosis HC VENIPUNCTURE Routine 01/24/2023 10:42 AM EDT Type 2 diabetes mellitus with diabetic nephropathy, 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 Obesity due to excess calories with serious comorbidity, unspecified classification URIC ACID Routine 01/24/2023 10:42 AM EDT Type 2 diabetes mellitus with diabetic nephropathy, 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 Obesity due to excess calories with serious comorbidity, unspecified classification PHOSPHORUS Routine 01/24/2023 10:42 AM EDT Type 2 diabetes mellitus with diabetic nephropathy, 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 Obesity due to excess calories with serious comorbidity, unspecified classification FERRITIN Routine 01/24/2023 10:42 AM EDT Erythrocytosis Microcytosis COMPREHENSIVE METABOLIC PANEL Routine 01/24/2023 10:42 AM EDT Type 2 diabetes mellitus with diabetic nephropathy, 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 Obesity due to excess calories with serious comorbidity, unspecified classification documented in this encounter Results * (ABNORMAL) Differential, Automated (01/24/2023 10:42 AM EDT) Neutrophil % 67.5 % [facility] Neutrophil Absolute 5.62 1.70 - 6.10 x10(3)/mc L [facility] Lymph % 24.1 % [facility] Lymphocytes Abs 2.0 0.9 - 3.2 x10(3)/mc L [facility] Monocyte % 5.0 % [facility] Monocyte Abs 0.4 0.3 - 0.9 x10(3)/mc L [facility] Eos % 1.6 % [facility] Eosinophils Abs 0.1 0.0 - 0.4 x10(3)/mc L [facility] Basophil % 0.8 % [facility] Baso Absolute 0.1 0.0 - 0.1 x10(3)/mc L [facility] Immature Gran % 1.00 % [facility] Comment: Immature granulocytes(IG's)percentage and absolute count will include metamyelocytes, myelocytes, and promyelocytes. Blood smears from CBCs yielding IG's will be scanned manually for concordance. If this scan disagrees with the automated IG or if promyelocytes are noted, a manual differential will be performed. Immature Gran Absolute 0.08(H) 0.00 - 0.04 x10(3)/mc L [facility] Blood 01/24/2023 10:4 2 AM EDT 01/24/2023 10:51 AM EDT Narrative Resulting Agency Comment Spec In Lab Faye Maxwell MD HEMATOLOGY ORDERABLE S [facility] [place] [address] * (ABNORMAL) Hemogram (01/24/2023 10:42 AM EDT) White Blood Cell 8.3 4.0 - 9.5 x10(3)/mc L [facility] Red Blood Cell 5.93(H) 4.58 - 5.54 x10(6)/mc L [facility] Hemoglobin 14.8 13.7 - 16.5 g/dL [facility] Hematocrit 45.1 40.5 - 48.5 % [facility] Mean Cell Volume 76.1(L) 82.9 - 93.1 fL [facility] Mean Cell Hemoglobin 25.0(L) 27.5 - 32.1 pg [facility] Mean Cell Hemoglobin Concentration 32.8 32.0 - 35.7 g/dL [facility] Platelet 206 145 - 357 x10(3)/mc L [facility] RDW Standard Deviation 40.2 36.0 - 45.0 fL [facility] RDW coefficient of variation 14.8(H) 11.4 - 13.8 % [facility] Mean Platelet Volume 10.4 7.6 - 12.9 fL [facility] NRBC% auto 0.0 % [facility] NRBC Absolute 0.000 0.000 - 0.000 x10(3)/ L [facility] Blood 01/24/2023 10:4 2 AM EDT 01/24/2023 10:51 AM EDT Narrative Resulting Agency Comment Spec In Lab Faye Maxwell MD HEMATOLOGY ORDERABLE S [facility] [place] [address] * Iron and TIBC (01/24/2023 10:42 AM EDT) Iron 67 45 - 160 mcg/dL [facility] TIBC 304 250 - 450 mcg/dL [facility] Iron Saturation 22 20 - 50 % [facility] Blood 01/24/2023 10:4 2 AM EDT 01/24/2023 10:51 AM EDT Narrative Resulting Agency Comment Spec In Lab Veena Cunningham MD CHEMISTRY ORDERA BLES Performing Organization Address [facility] Co de Phone Number [facility] [place] [address] * (ABNORMAL) Reticulocyte Count (01/24/2023 10:42 AM EDT) [facility] Reticulocyte % 1.0 0.7 - 2.6 % [facility] Retic Abs # 0.060 0.030 - 0.120 x10(6)/mcL [facility] Immature Retic% 5.7 0.0 - 15.6 % [facility] Reticulated Hgb 27.7(L) 31.3 - 40.2 pg [facility] Blood 01/24/2023 10:4 2 AM EDT 01/24/2023 10:51 AM EDT Narrative Resulting Agency Comment Spec In Lab Veena Cunningham MD HEMATOLOGY ORDER DEDRA Performing Organization Address [facility] Co de Phone Number [facility] [place] [address] * Ferritin (01/24/2023 10:42 AM EDT) [facility] Ferritin 113 30 - 400 ng/mL [facility] Comment: Pediatric reference ranges not verified at [facility], interpret with caution. Reference ranges for females greater than 50 years of age approach values for men, i.e., 30-400 ng/mL. Blood 01/24/2023 10:4 2 AM EDT 01/24/2023 10:51 AM EDT Narrative Resulting Agency Comment Spec In Lab Veena Cunningham MD CHEMISTRY ORDERA BLES Performing Organization Address [facility] Co de Phone Number [facility] [place] [address] * JAK2 V617F, Exon12, and Other Non-V617F Mut (01/24/2023 10:42 AM EDT) [facility] Somatic JAK2 Result Negative [facility] Somatic JAK2 Interp JAK2 Somatic Variant [...] extracted from blood and analyzed with the [employer] Myeloid sequencing assayTM. Amplicon-based library preparation, template preparation and chip-loading utilize the Z[employer]Rock, and sequencing is performed on the Nitronex S5 System. Reads from JAK2 exons 12-15 are analyzed for single nucleotide variants, deletions, and insertions. Base Calling and alignment is performed on the TorrDerivix Suite [employer]Der[employer] Suite 5.12.0.Variant calling is performed on the [employer] Data Analyst version 5.14. LIMITATIONS AND DISCLAIMERS: ??The analytic [...] Genomics and Advanced Technology (CGAT) Laboratory at [facility]. It has not been cleared or approved by the FDA. The laboratory is regulated under CLIA as qualified to perform high-complexity testing. This test is used for clinical purposes. It should not be regarded as investigational or for research. [facility] Comment: [VERIFIED DATE]02.04.23 Verified By:Neptali Cailxto, Mohan Franks Molecular Pathologist (Electronic Signature) Blood 01/24/2023 10:4 2 AM EDT 01/24/2023 1:39 PM EDT Narrative Resulting Agency Comment Spec In Lab Veena Cunningham MD MOLECULAR ORDERA BLES Performing Organization Address [facility]/ZIP Co de Phone Number [facility] [place] [address] * Erythropoietin Level (01/24/2023 10:42 AM EDT) Pathologist [facility] Erythropoietin (JANUARY) 11.8 2.6 - 18.5 mIU/mL [facility] Comment: Test Performed by: [facility] [address] [place] [address] Artist'S Representative: Adam Gifford M.D. Ph.D.; CLIA# [id number] Blood 01/24/2023 10:4 2 AM EDT 01/24/2023 12:49 PM EDT Narrative Resulting Agency Comment Spec In Lab Veena Cunningham MD LAB SEND OUT ORD ERABLES Performing Organization Address [facility] Co de Phone Number [facility] [place] [address] * (ABNORMAL) Comprehensive metabolic panel (non-fasting) (01/24/2023 10:42 AM EDT) [facility] Glucose 106 65 - 199 mg/dL [facility] Comment:Diabetes: >=200 mg/d L plus symptoms Blood Urea Nitrogen 7(L) 10 - 20 mg/dL [facility] Creatinine 0.92 0.80 - 1.50 mg/dL [facility] Sodium 140 135 - 145 mmol/L [facility] Potassium 4.5 3.5 - 5.0 mmol/L [facility] Comment: Please note: ??Patients with WBC >100,000 may have falsely elevated Potassium levels. ??For accurate Potassium quantification in these patients send serum separator tube (gold top) for subsequent determinations. ??Contact the Clinical Chemistry Laboratory if there are any questions. Chloride 103 98 - 107 mmol/L [facility] Carbon Dioxide 28 22 - 31 mmol/L [facility] Anion Gap 9 5 - 15 mmol/L [facility] Calcium 9.2 8.5 - 10.5 mg/dL [facility] Protein, Total 7.2 6.1 - 8.0 g/dL [facility] Albumin 4.1 3.2 - 5.2 g/dL [facility] Aspartate Aminotransferase 18 0 - 39 unit/L [facility] Alanine Aminotransferase 21 0 - 55 unit/L [facility] Alkaline Phosphatase 81 40 - 130 unit/L [facility] Bilirubin, Total 0.4 0.2 - 1.3 mg/dL [facility] Est Glomerular Filtration Rate 103 >=60 mL/min/1. 73 m?? [facility] Comment: This patient's estimated [...] and symptoms in addition to eGFR. Blood 01/24/2023 10:4 2 AM EDT 01/24/2023 10:51 AM EDT Narrative Resulting Agency Comment Spec In Lab Faye Maxwell MD CHEMISTRY ORDERABLES [facility] [place] [address] * Phosphorus (01/24/2023 10:42 AM EDT) Phosphorus 3.1 2.5 - 4.5 mg/dL [facility] Blood 01/24/2023 10:4 2 AM EDT 01/24/2023 10:51 AM EDT Narrative Resulting Agency Comment Spec In Lab Faye Maxwell MD CHEMISTRY ORDERABLES [facility] [place] [address] * Uric acid (01/24/2023 10:42 AM EDT) Uric Acid 5.7 3.5 - 8.5 mg/dL [facility] Blood 01/24/2023 10:4 2 AM EDT 01/24/2023 10:51 AM EDT Narrative Resulting Agency Comment Spec In Lab Faye Maxwell MD CHEMISTRY ORDERABLES Performing Organization Address City/[facility]/ZIP Co de Phone Number [facility] [place] [address] * PTH (01/24/2023 10:42 AM EDT) Parathyroid Hormone 60 15 - 65 pg/mL [facility] Blood 01/24/2023 10:4 2 AM EDT 01/24/2023 10:51 AM EDT Narrative Resulting Agency Comment Spec In Lab Faye Maxwell MD CHEMISTRY ORDERABLES Performing Organization Address City/[facility] Co de Phone Number [facility] [place] [address] documented in this encounter Visit Diagnoses Diagnosis Type 2 diabetes mellitus with diabetic nephropathy, 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
--- OUTSIDE RECORDS SUMMARY | 2024-05-21 01:12 | XMS_ITS | Encounter Summary ---
Author Organization [facility] [place] [address] Care Team Providers Care Finance Lead Name Role Phone Olga Hoffman APRN Primary Care Provider [phone] [phone] Encounter Details Date Type Department Care Team (Late st Contact Info) Description 02/26/2024 Orders Only General Surgery at [facility] [place] [phone] June Delacruz Duodenal cancer (Primary Dx) Social History Tobacco Use Types [...] in a usp (including now)? No 01/23/2023 Sex and Gender Information Value Date Recorded Sex Assigned at Not on file Gender Identity Not on file Sexual Orientation Not on file documented as of this encounter Plan of Treatment Upcoming Encounters Date Type Department Care Team (Late st Contact Info) Description 05/21/2024 9:00 AM EDT Office [place] [address] Nighat López MD [facility] [place] [address] 05/28/2024 8:00 AM EDT Office Visit Hematology/Oncology at [address] [phone] Rodriguez Fowler MD [facility] [place] [address] Sherry Cedillo APRN [address] [place] [address] DR HEMATOLOGY AND ONCOLOGY [place], [place] [phone] 05/28/2024 8:30 AM EDT Infusion Hematology Oncology at [address] [phone] 05/28/2024 9:30 AM EDT Clinical Support Hematology/Oncology at [address] [phone] [facility] HEMATOLOGY [place] [address] documented as of this encounter Results * (ABNORMAL) Creatinine (03/01/2024 7:04 AM EDT) Creatinine 0.77(L) 0.80 - 1.50 mg/dL [facility] Est Glomerular Filtration Rate 110 >=60 mL/min/1. 73 m?? 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
--- OUTSIDE RECORDS SUMMARY | 2024-05-21 01:12 | XMS_ITS | Encounter Summary ---
Author Organization [facility] [place] [address] Care Team Providers Care Vb Net Programmer Name Role Phone Olga Hoffman APRN Primary Care Provider [phone] Encounter Details Date Type Department Care Team (Late st Contact Info) Description 02/20/2024 Orders Only General Surgery at [facility] [place] [phone] Mira Solomon, RN Social History Tobacco Use Types Packs/Day [...] place to sleep or slept in a group home (including now)? No 01/23/2023 Sex and Gender Information Value Date Recorded Sex Assigned at Not on file Gender Identity Not on file Sexual Orientation Not on file documented as of this encounter Progress Notes * Mira Solomon RN - 02/20/2024 11:22 AM EDT Pt called to report that he is not taking Trulicity and has not been for a while (over 3 weeks). Hedoes take Farxiga daily ((it was in his outside meds so I added it to his medication list) I instructed the patient to hold his Farxiga for 3 days before surgery so his last dose will be on 02/26/24. I explained that he does not need to be on the clear liquid diet the day before any longer,but he thought he might do it anyway. He also asked about antianxiety medication for the day beforesurgery. I explained that if he has some it is ok to take but if he is looking for some he will need to talk to his PCP about prescribing something. Pt verbalizes his understanding and agrees with the plan. documented in this encounter Plan of Treatment Upcoming Encounters Date Type Department Care Team (Late st Contact Info) Description 05/21/2024 9:00 AM EDT Office [place] [address] Nighat López MD [facility] [place] [address] 05/28/2024 8:00 AM EDT Office Visit Hematology/Oncology at [address] [phone] Rodriguez Fowler MD [facility] [place] [address] Sherry Cedillo APRN [address] [place] [address] DR HEMATOLOGY AND ONCOLOGY [place], [place] [address] 05/28/2024 8:30 AM EDT Infusion Hematology Oncology at [address] [phone] 05/28/2024 9:30 AM EDT Clinical Support Hematology/Oncology at [address] [phone] [facility] DR [place] [address] documented as of this encounter Visit Diagnoses Not on filedocumented in this encounter Care Teams Vb Net Programmer Relationship Specialty Start Date End Date Olga Hoffman APRN [address] [place], [place] [address] PCP - General Family Medicine 10/30/22 documented as of this encounter
--- OUTSIDE RECORDS SUMMARY | 2024-05-21 01:12 | XMS_ITS | Encounter Summary ---
[place] [address] Care Team Providers Care Medical Assistant Instructor Name Role Phone Olga Hoffman APRN Primary Care Provider [phone] Reason for Visit * Diagnostic Test (Routine) - Closed Specialty Diagnoses / Procedures Referred By Contac t Referred To Contact Radiology Diagnoses Duodenal adenocarcinoma Procedures NM PET CT Skull Base to Mid-thigh Jaki Phillips [address] [place] [address] [place] [address] Referral ID Status Reason Start Date Expiration Date V isits Requested Visits Authorized [id number] Closed Specialty Service Requested 01/13/2024 07/14/2025 1 1 Encounter Details Date Type Department Care Team (Latest Contact Info) Description 01/27/2024 12:06 PM EDT - 01/27/2024 11:59 PM EDT Hospital Encounter [place] [address] Jaki Phillips [address] [place], [place] [phone] Discharge Disposition: Home Social History Tobacco Use [...] in a intermediate (including now)? No 01/23/2023 Sex and Gender [...] 9:00 AM EDT Office Visit [place] [address] Nighat López MD [facility] [place] [address] 05/28/2024 8:00 AM EDT Office Visit Hematology/Oncology at [address] [phone] Rodriguez Fowler MD [facility] [place] [address] Sherry Cedillo APRN [address] [place] [address] DR HEMATOLOGY AND ONCOLOGY [place], [place] [address] 05/28/2024 8:30 AM EDT Infusion Hematology Oncology at [address] [phone] 05/28/2024 9:30 AM EDT Clinical Support Hematology/Oncology at [address] [phone] [facility] DR HEMATOLOGY AND ONCOLOGY [place], [place] [phone] documented as of this encounter Procedures Procedure Name Priority Date/Time Associated Diagnosis Comments NM PET CT SKULL BASE TO MID-THIGH ([facility]) Routine 01/27/2024 1:46 PM EDT Duodenal adenocarcinoma POCT GLUCOSE Routine 01/27/2024 12:16 PM EDT documented in this encounter Results * POCT Glucose (01/27/2024 12:16 PM EDT) Glucose, POC 112 65 - 199 mg/dL [facility] Comment: Supplemental ranges: <140 mg/dL before meals <180 mg/dL all other times of the day Blood 01/27/2024 12:1 6 PM EDT 01/27/2024 12:16 PM EDT Jaki Phillips DO POINT OF CARE TEST O RDERABLES [facility] [place] [address] documented in this encounter Visit Diagnoses Not on filedocumented in this encounter Care Teams Medical Assistant Instructor Relationship Specialty Start Date End Date Olga Hoffman APRN [address] [place] [address] PCP - General Family Medicine 10/30/22 documented as of this encounter
--- OUTSIDE RECORDS SUMMARY | 2024-05-21 01:12 | XMS_ITS | Encounter Summary ---
Author Organization [facility] Address [facility] [place] [address] Care Team Providers Care Energy Director Name Role Phone Olga Hoffman APRN Primary Care Provider [phone] Encounter Details Date Type Department Care Team (Latest Contact Info) Description 02/03/2024 Travel Social History Tobacco Use Types Packs/Day [...] 9:00 AM EDT Office [place] [address] Nighat López MD [facility] [place] [address] 05/28/2024 8:00 AM EDT Office Visit Hematology/Oncology at [address] [phone] Rodriguez Fowler MD [facility] [place] [address] Sherry Cedillo APRN [address] [place] [address] DR HEMATOLOGY AND ONCOLOGY [place], [place] [id number] 05/28/2024 8:30 AM EDT Infusion Hematology Oncology at [address] [phone] 05/28/2024 9:30 AM EDT Clinical Support Hematology/Oncology at [address] [phone] [facility] [place] [address] documented as of this encounter Visit Diagnoses Not on filedocumented in this encounter Care Teams Energy Director Relationship Specialty Start Date End Date Olga Hoffman APRN [address] [place] [address] PCP - General Family Medicine 10/30/22 documented as of this encounter
--- OUTSIDE RECORDS SUMMARY | 2024-05-21 01:12 | XMS_ITS | Encounter Summary ---
Author Organization [facility] [place] [address] Care Team Providers Care C Engineer Name Role Phone Dalton Olgaevy Bell APRN Primary Care Provider [phone] Reason for Visit * Auth/Cert (Routine) Specialty Diagnoses / Procedures Referred By Contac t Referred To Contact Diagnoses Malignant neoplasm of duodenum DUODENUM ADENCARCINOMA Procedures PRO PART REMV PANC, PROX+REMV DUOD+ANAST @WHIPPLE PROCEDURE (WRVU 52.84) Rudi Hernandez MD [facility] [place] [address] [facility] Referral ID Status Reason Start Date Expiration Date Visits Re quested Visits Authorized [id number] 1 1 Encounter Details Date Type Department Care Team (Late st Contact Info) Description 03/01/2024 7:43 AM EDT Anesthesia Event [place] [address] Gary Scott MD [facility] [place] [address] Campbell Rahman CRNA [facility] [place] [address] Anesthesia Record Procedure Summary Procedure Name Responsible Anesthesiologist Anesthesia Start Time Anesthesia Stop Time @WHIPPLE PROCEDURE (WRVU 52.84) (Abdomen) Gary Scott MD 03/01/24 0743 03/01/24 1844 Events Date Time Event Comment 03/01/2024 0654 0741 AN Verify 0743 Start 0743 An Start Data 0750 An Induction 0754 An Intubation 0814 Anesthesia Ready 0847 ABG Data Arterial Blood Gas result: pH 7.38 pCO2 37 pO2 223 %O2 Sat 98 FiO2 50 HCO3 21.8 BE -3.3 Hb 13.3 K 3.68 Glucose 250 Lactate 1.12 1059 ABG Data Arterial Blood Gas result: pH 7.43 pCO2 35 pO2 182 %O2 Sat 98 FiO2 50 HCO3 22.9 BE -1.4 Hb 14.5 K 4.1 Glucose 198 Lactate 2 1215 Break/Relief In I assumed ca re for Break Relief before which we: 1. Identified the patient 2. Identified the responsible provider(s) 3. Reviewed the pertinent medical history 4. Discussed the surgical plan and course 5. Reviewed intra-op anesthesia management and issues during anesthesia 6. Set expectations for the relief (and/or post-procedure) period 7. Allowed opportunity for questions and acknowledgement of understanding Arely Rahman CRNA 1251 Break/Relief Out 1504 ABG Data Arterial Blood Gas result: pH 7.4 pCO2 39 pO2 204 %O2 Sat 98 FiO2 50 HCO3 24 BE -0.8 Hb 14.5 K 4 Glucose 175 Lactate 2.14 1516 Break/Relief In I assumed ca re for Break Relief before which we: 1. Identified the patient 2. Identified the responsible provider(s) 3. Reviewed the pertinent medical history 4. Discussed the surgical plan and course 5. Reviewed intra-op anesthesia management and issues during anesthesia 6. Set expectations for the relief (and/or post-procedure) period 7. Allowed opportunity for questions and acknowledgement of understanding SHAWN parmar 1532 Break/Relief Out 1751 Break/Relief In I assumed ca re for Break Relief before which we: 1. Identified the patient 2. Identified the responsible provider(s) 3. Reviewed the pertinent medical history 4. Discussed the surgical plan and course 5. Reviewed intra-op anesthesia management and issues during anesthesia 6. Set expectations for the relief (and/or post-procedure) period 7. Allowed opportunity for questions and acknowledgement of understanding Diane Sexton MD 4477 ABG Data Arterial Blood Gas result: pH 7.399 pCO2 35.2 pO2 188.3 %O2 Sat 99 FiO2 52 HCO3 21.3 BE -3.6 Hb 14.6 K 4.33 Glucose 162 Lactate 2.1 175 Break/Relief Out 1823 Extubation/LMA Out 1834 an stop data 184 Recovery or ICU Handoff Nuria ent care was transferred to the destination unit staff after review of the patient's medical history, current anesthetic/surgical status and plan, according to the Provider Handoff Checklist. 184 Stop Meds Name Total fentaNYL 100 mcg IV Lidocaine 100 mg Propofol 500 mg Rocuronium 370 mg Ondansetron 8 mg Dexamethasone 8 mg levoFLOXacin (Levaquin) 750 mg in dextro se 5% 150 mL infusion 750 mg metroNIDAZOLE (Flagyl) 1,000 mg in sodium chloride 0.9% 200 mL (2 x 500 mg/100 mL bags) 1,000 mg ketamine 10 mg/mL 50 mg BUpivacaine (PF) 0.25% 22 mL HYDROmorphone (pf) (10 mcg/m L), BUpivacaine (pf) 0.1% in sodium chloride 0.9% 250 mL epidural 61.4 mL insulin regular INF 29.35 Units insulin regular human 2 Units PHENYLephrine INF 2,910 mcg dexmedeTOMIDine 28 mcg sugammadex 200 mg lactated ringers infusion 5,000 mL albumin (human) 5% 250 mL * Agents Name O2 * Blood No blood administrations on file. Lines, Drains, and Airways Type Details Placement Removal Wound 03/01/24; 0648; Y; Right; plantar; neuropathic wound/ulcer; ulcer 03/01/24 0648 by Nuris Agarwal RN Incision 03/01/24; 0906; midl ine; abdomen; vertical 03/01/24 0906 by Munira Arauz RN Incision 01/07/23; 0823; Righ t; upper quadrant; non-laparascopic puncture; LDA not present upon assessment; 03/01/24; 0906 01/07/23 0823 by Marlena Kenney RN 03/01/24 0906 by Munira Arauz RN Epidural 03/01/24; 0720; thoracic; loss 7.5, tip T8, 15+cm skin; Drs. Bird and Miguel Angel; analgesia, continuous infusion; 03/07/24; 1033 03/01/24 0720 by Ange Vallecillo RN 03/07/24 1033 by Bernadette Ford RN PIV 03/01/24; 0741; qoql-ctg-qamhqe catheter system; 20 gauge; dorsal arch vein (top of hand), left; Anatomical Landmarks; pre op nurse; removed per policy/procedure, site symptomatic, catheter/device intact; 03/07/24; 1732 03/01/24 0741 by Campbell Rahman, MANUAL LATHE OPERATOR 03/07/24 173 by Ginny Bill RN ETT Mask Ventilation: Pk price (1); ETT Type: Cuffed, Oral; ETT Size: 8 mm; Mac Blade: 4; Notes: Asleep, Pre-O2, Cricoid Pressure; Attempts: 1; Laryngoscopy Grade: 2; ETT Placement Verified By: Auscultation, Capnometry, Visual; Secured at Teeth: 23 cm; Inserted by: Zeferino Rahman; Removal Date: 03/01/24; Removal Time: 182303/01/24 075 by Campbell Rahman, MANUAL LATHE OPERATOR 03/01/24 1824 by Campbell Rahman, MANUAL LATHE OPERATOR PIV 03/01/24; 0800; dizt-ldt-rcbfgi catheter system; 18 gauge; dorsal arch vein (top of hand), right; Anatomical Landmarks; Diane Sexton; 03/06/24; 1551 03/01/24 0800 by Campbell Rahman, MANUAL LATHE OPERATOR 03/06/24 1551 by Dilma Dominique RN Urethral Catheter 03/01/24; 0800; Physician order; indwelling double lumen catheter; hydrophilic coated, latex; 14; inserted at this facility; 1; 5; 10; none; drainage bag; 03/05/24; 1123 03/01/24 0800 by Munira Arauz RN 03/05/24 1123 by Dilma Dominique RN Arterial Line 03/01/24; 0811; radi al artery, left; 20 gauge; Anatomical Landmarks; continuous blood pressure monitoring, frequent blood gas measurement; Diane Pimentel; Sterile Prep, Sterile Gloves; no longer indicated; 03/01/24; 213403/01/24 08 by Campbell Rahman, MANUAL LATHE OPERATOR 03/01/242134 by Roxie Rascon RN NG/OG Tube 03/01/24; 0917; odell t nostril; by at bedside; 03/03/24; 1143 03/01/24 0917 by Campbell Rahman CRNA 03/03/24 1143 by Violeta Manley RN Closed/Suction Drain 03/01/24; 1740; 1; Midline, Superior; Bulb; 19 Maori 03/01/24 1740 by Marisol Galvan RN 03/05/24 1540 by Dilma Dominique RN documented in this encounter Social History Tobacco Use Types Packs/Day Years Used Date Smoking Tobacco: Never Smokeless Tobacco: Never Alcohol Use Standard Drinks/Week Comments Not Currently 0 (1 standard drink = 0.6 oz pur e alcohol) [facility] Utilities Answer Date Recorded In the [...] any time in the past 12 m [facility], were you homeless or living in a longterm (including now)? No 03/02/2024 DH IPV Inpatient [...] on file documented as of this encounter OR Notes * Anesthesia Postprocedure Evaluation - Gary Scott MD - 03/01/2024 7:04 PM EDT Department of Anesthesiology Post-procedure Note Patient: Charles Nick Procedure Summary Date: 03/01/24 Room / Location: [address] MAIN OR Anesthesia Start: 742 Anesthesia Stop: 1843 Procedure: @WHIPPLE PROCEDURE (WRVU 52.84) (Abdomen) Diagnosis: (DUODENUM ADENCARCINOMA) Surgeons: Rudi Hernandez MD Responsible Provider: Gary Scott MD Anesthesia Type: general ASA Status: 3 All Anesthesia Providers: Anesthesiologist: Gary Scott MD; Diane Sexton MD MANUAL LATHE OPERATOR: Campbell Rahman CRNA Vitals Value Taken Time BP 107/63 03/02/24 1116 Temp 36 ??C (96.8 ??F) 03/02/24 1116 Pulse 86 03/01/24 2149 Resp 18 03/02/24 1116 SpO2 94 % 03/02/24 1253 Pain Level 0 03/02/24 0843 Vitals shown include unfiled device data. Patient Location: PACU/[facility] Level of Consciousness: Conscious but Sleepy Pain Management: Satisfactory Analgesia PONV: None Cardiovascular Status: Hemodynamically Stable and At Baseline Respiratory Status: Supplemental O2 (NC or FM) and Stable Respiratory Status Postoperative Fluid Status: Intravascular EUvolemia Possible Anesthetic Complications: NONE apparent at time of evaluation Final Primary Anesthesia Type: General (The anesthetic type performed was the same as planned.) Comments: * Anesthesia Procedure Notes - Shyla Bird MD - 03/01/2024 7:44 AM EDTAssociated Order(s): Neuraxial Block Procedure: Neuraxial Block Post-op Pain Control Post-op pain management at the request of surgeon. Type: Epidural The patient was greeted. The sedation plan, its benefits, risks and alternatives were discussed with the patient. The patient has consented to the procedure. The medical history and chart were reviewed. The timeout was performed. Start time: 03/01/2024 7:21 AM End time: 03/01/2024 7:39 AM Patient Location: Operating Room Patient Prep Position: Prone Prep: Hand Hygiene, Hat, Mask, Sterile Gloves, Gown, Chlorhexidine and Patient Draped Injection technique: continuous Skin Anesthetic Lidocaine 1% 2 ml Procedure Technique Level of needle insertion: T12-L1 Needle approach: paramedian Needle Type: Tuohy Gauge: 17 Needle length: 3.5 in Needle insertion depth when PERLA achieved: 7.5 cm Technique for Loss of Resistance: PERLA saline A 19 guage catheter introduced into the space. Catheter at skin depth: 15 cm Dressing/Secured with: Chlorhexidine Tegaderm and Tegaderm Number of attempts: 1 Medications: Date/Time: 03/01/2024 7:21 AM Events/Notes Imaging: fluoroscopy guided and epidurogram obtained Level of Epidural Tip via Fluoroscopy: T8-9 Iohexol 300 mgI/mL, 2 mL Performed by: Resident/MANUAL LATHE OPERATOR: Juan Michelle MD Attending Physician: Shyla Bird MD Authorized by: Shyla Bird MD ~~~~~~~~~~~~~~~~~~~~~~~~~~~~~~~~~~~~~~~~~~~~~~~~~~~~~~~~~~~~ * Anesthesia Preprocedure Evaluation - Diane Sexton MD - 03/01/2024 6:54 AM EDT Pre-Anesthesia Evaluation for: Charles Nick a 48 y.o. male. [facility] Patient Active Problem List Diagnosis Date Noted CKD (chronic kidney disease) stage 3, GFR 30-59 ml/min 01/31/2011 Obesity 01/31/2011 Past Medical History: Diagnosis Date CKD (chronic kidney disease) stage 3, GFR 30-59 ml/min 01/31/2011 Obesity 01/31/2011 Past Surgical History: Procedure Laterality Date IR BIOPSY LIVER PERCUTANEOUS - NON-FOCAL PARENCHYMA 01/07/2023 IR Biopsy Liver Percutaneous 01/07/2023 Juan Wright MD [facility] INTERVENTIONL RAD Social History Tobacco Use Smoking status: Never Smokeless tobacco: Never Substance Use Topics Alcohol use: Not Currently Social History Substance and Sexual Activity Drug Use Not Currently Allergies Allergen Reactions Penicillins Rash Medications: MAR and/or home medications have been reviewed. Physical Exam: Preprocedure Vitals Current as of 03/01/24 0654 BP: 151/96 Pulse: 65 Resp: SpO2: 98 Temp: 36.7 ??C (98.1 ??F) Height: 188 cm (6' 2) (03/01/24) Weight: 135.2 kg (298 lb) (03/01/24) BMI: 38.26 IBW: 82.2 kg (181 lb 4.8 oz) Last edited 03/01/24 0633 by AF Airway Assessment: Mallampati: II TM distance: >3 FB Neck ROM: full Cardiovascular Assessment: Rhythm: regular Rate: normal Pulmonary Assessment: unlabored breathing Dental Assessment: - normal exam Misc Assessment: Patient is wearing No contact(s). IV access: Peripheral line Last Filed Perioperative Cognitive Screening None Anesthesia Plan: ASA 3 general, with a(n) intravenous induction Mr. 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 Pt has an allergy to PCN. Laboratory values reviewed. Plan for preoperative epidural placement, GETA, invasive BP monitoring, large bore PIV access. Risks were discussed at length, and all questions and concerns were addressed. Consent was obtained, andthe appropriate paperwork was placed in the patient's chart. Region - Other Informed Consent: Anesthetic plan and risks discussed with patient. Use of blood products discussed with patient who consented to blood products. Plan discussed with MANUAL LATHE OPERATOR. Anesthesia Screening documented in this encounter Plan of Treatment Upcoming Encounters Date Type Department Care Team (Late st Contact Info) Description 05/21/2024 9:00 AM EDT Office [place] [phone] Nighat López MD [facility] [place] [address] 05/28/2024 8:00 AM EDT Office Visit Hematology/Oncology at [address] [phone] Rodriguez Fowler MD [facility] [place] [address] Sherry Cedillo, [place] [address] [place] [address] DR HEMATOLOGY AND ONCOLOGY [place], [place] [phone] 05/28/2024 8:30 AM EDT Infusion Hematology Oncology at [address] [phone] 05/28/2024 9:30 AM EDT Clinical Support Hematology/Oncology at [address] [phone] [address] [facility] DR HEMATOLOGY [place] [address] documented as of this encounter Procedures Procedure Name Priority Date/Time Associated Diagnosis Comments [id number] ONLY Routine 03/01/2024 7:21 AM EDT documented in this encounter Results * [id number] ONLY (03/01/2024 7:21 AM EDT) Narrative Shyla [...] insertion: T12-L1 Needle approach: paramedian Needle Type: Tuohy Gauge: 17 Needle length: 3.5 in Needle [...] 300 mgI/mL, 2 mL Performed by: ?? Resident/MANUAL LATHE OPERATOR: ? Juan Michelle MD ?? Attending Physician: ? Shyla Bird MD Authorized by: Shyla Bird MD ?? ~~~~~~~~~~~~~~~~~~~~~~~~~~~~~~~~~~~~~~~~~~~~~~~~~~~~~~~~~~~~ Shyla Isidra Bird MD [facility] documented in this encounter Visit Diagnoses Not on filedocumented in this encounter Administered Medications Inactive Administered Medications - up to 3 most recent administrations Medication Order MAR Action Action Date Dose Rate Site albumin (human) 5% 250 mL intravenous solution Intravenous, CONTINUOUS PRN, Starting on Fri03/01/24 at 1452, Until Fri03/01/24 at 1844, Anesthesia Intra-op, Routine New Bag 03/01/2024 2:52 PM EDT BUpivacaine (Marcaine) (2.5 mg/mL) 0.25% bolus injection (Anesthesia) Epidural, PRN, Starting on Fri03/01/24 at 0822, Until Fri03/01/24 at 1844, Anesthesia Intra-op, Routine Given 03/01/2024 6:35 PM EDT 4 mLs Given 03/01/2024 3:39 PM EDT 3 mLs Given 03/01/2024 8:40 AM EDT 3 mLs dexAMETHasone (Decadron) injection Intravenous, PRN, Starting on Fri03/01/24 at 0754, Until Fri03/01/24 at 1844, Anesthesia Intra-op, Routine Given 03/01/2024 7:54 AM EDT 8 mg dexmedeTOMIDine (Precedex) (4 mcg/mL) bolus injection (Anesthsia) Intravenous, PRN, Starting on Fri03/01/24 at 1808, Until Fri03/01/24 at 1844, Anesthesia Intra-op, Routine Given 03/01/2024 6:19 PM EDT 4 mcg Given 03/01/2024 6:15 PM EDT 4 mcg Given 03/01/2024 6:11 PM EDT 8 mcg fentaNYL (pf) (50 mcg/mL) multi-dose injection Intravenous, PRN, Starting on Fri03/01/24 at 0743, Until Fri03/01/24 at 1844, Anesthesia Intra-op, Routine Given 03/01/2024 7:43 AM EDT 100 mcg HYDROmorphone (pf) (10 mcg/mL), BUpivacaine (pf) 0.1% [...] Bag 03/03/2024 1:00 AM EDT 250 mLs insulin regular (HumuLIN R,NovoLIN R) (100 unit/mL) injection vial Intravenous, PRN, Starting on Fri03/01/24 at 0848, Until Fri03/01/24 at 1844, Anesthesia Intra-op, Routine Given 03/01/2024 8:48 AM EDT 2 Units insulin regular (Myxredlin) (1 unit/mL) in sodium chloride 0.9% 100 mL infusion Intravenous, CONTINUOUS PRN, Starting on Fri03/01/24 at 0848, Until Fri03/01/24 at 1844, Anesthesia Intra-op, Routine Rate/Dose Change 03/01/2024 4:08 PM EDT 2 Units/hr 2 mL/hr Rate/Dose Change 03/01/2024 1:01 PM EDT 3 Units/hr 3 mL/hr Rate/Dose Change 03/01/2024 9:24 AM EDT 4 Units/hr 4 mL/hr ketamine (Ketalar) (10 mg/mL) IV bolus injection (Anesthesia) Intravenous, PRN, Starting on Fri03/01/24 at 0751, Until Fri03/01/24 at 1844, Anesthesia Intra-op Given 03/01/2024 7:51 AM EDT 50 mg lactated ringers infusion 1,000 mL, at 100 mL/hr, Intravenous, CONTINUOUS, Starting on Fri03/01/24 at 0645, Until Fri03/01/24 at 1924, Day of Surgery (Day of Procedure) New Bag 03/01/2024 5:03 PM EDT New Bag 03/01/2024 2:35 PM EDT New Bag 03/01/2024 7:41 AM EDT levoFLOXacin (Levaquin) 750 mg in dextrose 5% 150 mL infusion 750 mg, Intravenous, at 100 mL/hr, Administer over 90 Minutes, ONCE, 1 dose, On Fri03/01/24 at 0745, Administer over 90 minutes. Levofloxacin should be re-administered at 12 hour intervals during surgery if lasting beyond 12 hours., Day of Surgery (Day of Procedure), Routine, Indication 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): Prophylaxis, Restricted Antibiotic: Please indicate the most appropriate choice: Pre-approved indication (state the indication in comments field) Given 03/01/2024 8:16 AM EDT 750 mg lidocaine (pf) (Xylocaine) (20 mg/mL) 2% injection syringe Intravenous, PRN, Starting on Fri03/01/24 at 0749, Until Fri03/01/24 at 1844, Anesthesia Intra-op, Routine Given 03/01/2024 7:49 AM EDT 100 mg metroNIDAZOLE (Flagyl) 1,000 mg in sodium chloride 0.9% 200 mL (2 x 500 mg/100 mL bags) 1,000 mg, Intravenous, ONCE, 1 dose, On Fri03/01/24 at 0745, Administer over 30 Minutes, Infuse two bags of 500 mg/100 mL each over 30 minutes consecutively. Total dose 1000 mg/200 mL. Document infusion initiation time of first bag. Total dose of metroNIDAZOLE 1,000 mg, administered using two 500 mg/100 mL bags. Infuse each metroNIDAZOLE 500 mg/100 mL bag over 30 minutes (200 ml/hr) for total infusion time of 60 minutes. On the MAR, document administration of first bag using New Bag (1 of 2) MAR action for dose of 500 mg. Document second bag using Next Bag (2 of 2) MAR action for another dose of 500 mg (equalling total of 1,000 mg), Day of Surgery (Day of Procedure), Indication 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): Prophylaxis Given 03/01/2024 8:14 AM EDT 1,000 mg ondansetron (pf) (Zofran) (2 mg/mL) injection Intravenous, PRN, Starting on Fri03/01/24 at 1800, Until Fri03/01/24 at 1844, Anesthesia Intra-op, Routine Given 03/01/2024 6:00 PM EDT 8 mg PHENYLephrine (Gurvinder-Synephrine) (80 mcg/mL) in sodium chloride 0.9% 250 mL infusion Intravenous, CONTINUOUS PRN, Starting on Fri03/01/24 at 0902, Until Fri03/01/24 at 1844, Anesthesia Intra-op, Routine Restarted 03/01/2024 12:49 PM EDT 10 mcg/min 7.5 mL/hr Rate/Dose Change 03/01/2024 12:26 PM EDT 10 mcg/min 7.5 mL /hr Rate/Dose Change 03/01/2024 12:16 PM EDT 20 mcg/min 15 mL/ hr propofoL (Diprivan) 10 mg/mL bolus injection (Anesthesia) Intravenous, PRN, Starting on Fri03/01/24 at 0750, Until Fri03/01/24 at 1844, Anesthesia Intra-op Given 03/01/2024 8:30 AM EDT 100 mg Given 03/01/2024 8:16 AM EDT 100 mg Given 03/01/2024 7:54 AM EDT 50 mg rocuronium (Zemuron) (10 mg/mL) multi-dose injection Intravenous, PRN, Starting on Fri03/01/24 at 0751, Until Fri03/01/24 at 1844, Anesthesia Intra-op, Routine Given 03/01/2024 4:54 PM EDT 20 mg Given 03/01/2024 3:01 PM EDT 50 mg Given 03/01/2024 1:25 PM EDT 50 mg sugammadex (Bridion) 100 mg/mL injection Intravenous, PRN, Starting on Fri03/01/24 at 1820, Until Fri03/01/24 at 1844, Anesthesia Intra-op, Routine Given 03/01/2024 6:20 PM EDT 200 mg documented in this encounter Care Teams C Engineer Relationship Specialty Start Date End Date Olga Hoffman APRN [address] [place] [address] PCP - General Family Medicine 10/30/22 documented as of this encounter
--- OUTSIDE RECORDS SUMMARY | 2024-05-21 01:12 | XMS_ITS | Encounter Summary ---
Author Organization [facility] Address [facility] [place] [address] Care Team Providers Care Educational Advisor Name Role Phone Olga Hoffman APRN Primary Care Provider [phone] Encounter Details Date Type Department Care Team (Latest Contact Info) Description 01/12/2024 11:28 AM EDT - 01/12/2024 11:59 PM EDT Hospital [place] [address] Discharge Disposition: Home Social History Tobacco Use [...] in a jail (including now)? No 01/23/2023 Sex and Gender [...] 9:00 AM EDT Office [place] [address] Nighat Lópze MD [facility] [place] [address] 05/28/2024 8:00 AM EDT Office Visit Hematology/Oncology at [address] [phone] Rodriguez Fowler MD [facility] [place] [address] Sherry Cedillo APRN [address] [place] [address] DR HEMATOLOGY AND ONCOLOGY [place], [place] [phone] 05/28/2024 8:30 AM EDT Infusion Hematology Oncology at [address] [phone] 05/28/2024 9:30 AM EDT Clinical Support Hematology/Oncology at [address] [phone] Leah Rose, ARASH [facility] [place] [address] documented as of this encounter Procedures Procedure Name Priority Date/Time Associated Diagnosis Comments SURGICAL PATHOLOGY REPORT Routine 01/12/2024 11:28 AM EDT documented in this encounter Results * (ABNORMAL) Surgical Pathology Report (01/12/2024 11:28 AM EDT) Final Diagnosis [id number] ? Location: OPW The signing pathologist has (i) examined the relevant preparation(s) for the specimen(s) and (ii) rendered or confirmed the diagnosis(es). . ? Addendum ADDENDUM DISCUSSION B - Outside slide(s) labeled [id number], collection date 01/02/2024. 1. Small Intestine, duodenal polyp: Immunostains for MLH1, MSH2, MSH6 and PMS2 reveal intact nuclear staining in tumor cells. ??In a very small percentage of tumors, there may still be an underlying hereditary defect in these DNA mismatch repair genes despite intact nuclear expression of the protein in tumor cells . Genetic counseling and/or additional workup is indicated in patients with a family history that meets current criteria for Apodaca syndrome screening. Immunohistochemistry Studies: These IHC studies provide the pathologist with adjunctive diagnostic information. Antibody specificity has been verified by testing antibodies on a series of in-house tissues with known immunohistochemical performance characteristics. The clinical interpretation of any antibody positive staining or its absence is evaluated within the context of clinical presentation, morphology, histopathological criteria and other diagnostic tests. Block ? Antibody ? Result (Positive/Negative) [id number] ??MLH1 ? intact nuclear staining in tumor cells ? MSH2 ?intact nuclear staining in tumor cells ? MSH6 ?intact nuclear staining in tumor cells ? PMS2 ?intact nuclear staining in tumor cells Immunohistochemical assay was performed on paraffin-embedded tissue sections fixed in 10% neutral buffered formalin for 6-72 hours using the polymer system technique with appropriate controls. The assay was performed according to the field service representative's instructions using anti-MLH-1 (ES05), anti-MSH-2 ([id number]), anti-MSH-6 (44), and anti-PMS-2 (MRQ-28) antibodies. Electronically signed by: ?Dyan Lieberman MD Verified: ??02/19/2024 11:14 ??Pathologist Performed at: ??-[facility], [place] [address] Bonbon Dipper: eLe Sutton MD, AP, ??CLIA Certificate: [id number] ?Surgical Pathology DIAGNOSIS CONSULTATION CASE A - Outside slide(s) labeled [id number], collection date 12/05/2022. 1. Small Intestine, Duodenal Polyp: - ?? Tubulovillous adenoma, with at least high grade dysplasia, see note. ??Note: The adenoma shows villous structures with complex architecture, and focally atypical or disrupted small glands with luminal necrosis. Therefore, tubulovillous adenoma with at least high grade dysplasia is favored, and focally invasion can not be entirely excluded. Reviewed on intradepartmental GI consensus meeting with concurred diagnosis. 2. Colon, Polyp @ 75cm: - ??Tubular adenoma. B - Outside slide(s) labeled [id number], collection date 01/02/2024. . DIAGNOSIS 1. Small Intestine, duodenal polyp: - Invasive moderately differentiated adenocarcinoma. - Lymphovascular invasion is present (supported with outside submitted ERG and CD31 immunostains). Electronically signed by: ?Mio KAUFMAN, Dyan Verified: ??01/22/2024 16:12 ??Pathologist Performed at: ??-[facility] [place], [place] [address] Bonbon Dipper: Lee Sutton MD, AP, ??CLIA Certificate: [id number] DISCUSSION THIS RESULT REQUIRES PHYSICIAN/A.P.P. FOLLOW UP ADDITIONAL STUDIES Whole slide scan: [id number] part A-1 [id number] part B and stains SPECIMEN(S) SUBMITTED CONSULTATION CASE A - 2 slide(s) labeled [id number], collection date 12/05/2022. B - 3 slide(s) labeled [id number], collection date 01/02/2024. [id number] CARBON COPY: [facility] Surgical Pathology Department [facility], [facility], 2nd Floor [address] [place], [place] ??[address] CLINICAL INFORMATION . SPECIMEN PROCESSING [facility] ([facility]) pathology slide(s) are reviewed. Refer to Diagnosis and Specimen Submitted for specific case information. For the full text of the [facility] report(s) please refer to the Chart Review Media tab in the electronic health record (eDH).(A) 02/19/2024 11:14 AM EDT [facility] Consult Case 01/12/2024 11:2 8 AM EDT 01/12/2024 11:28 AM EDT Consult Case 01/12/2024 11:2 8 AM EDT 01/12/2024 11:28 AM EDT Faye Maxwell MD PATHOLOGY/CYTOLOGY O RDERABLES Performing Organization Address City/State/[facility] Co de Phone Number [facility] [place] [address] documented in this encounter Visit Diagnoses Not on filedocumented in this encounter Care Teams Educational Advisor Relationship Specialty Start Date End Date Olga Hoffman APRN [address] [place] [address] PCP - General Family Medicine 10/30/22 documented as of this encounter
--- OUTSIDE RECORDS SUMMARY | 2024-05-21 01:13 | XMS_ITS | Encounter Summary ---
Author Organization [facility] [place] [address] Care Team Providers Care Harness Cutter Name Role Phone Dariana Méndez MD Primary Care Provider [phone] Encounter Details Date Type Department Care Team (Late Contact Info) Description 07/17/2016 Telephone Nephrology [place] [phone] Deena Wells Social History Tobacco Use Types Packs/Day Years Used Date Smoking Tobacco: Never Smokeless Tobacco: Never Sex and Gender Information Value Date Recorded Sex Assigned at Not on file Gender Identity Not on file Sexual Orientation Not on file documented as of this encounter Miscellaneous Notes * Telephone Encounter - Deena Wells - 07/17/2016 11:25 AM EDT LM for Pt to call and rossy. documented in this encounter Plan of Treatment Upcoming Encounters Date Type Department Care Team (Late st Contact Info) Description 05/21/2024 9:00 AM EDT Office Visit [place] [phone] Nighat López MD [facility] [place] [address] 05/28/2024 8:00 AM EDT Office Visit Hematology/Oncology at [address] [phone] Rodriguez Fowler MD [facility] [place] [address] Sherry Cedillo APRN [address] [place] [address] DR HEMATOLOGY AND ONCOLOGY [place], [place] [phone] 05/28/2024 8:30 AM EDT Infusion Hematology Oncology at [address] [phone] 05/28/2024 9:30 AM EDT Clinical Support Hematology/Oncology at [address] [phone] [address] [facility] DR [place] [address] documented as of this encounter Visit Diagnoses Not on filedocumented in this encounter Care Teams Harness Cutter Relationship Specialty Start Date End Date Dariana Méndez MD [address] [place] [address] PCP - General Family Medicine 07/16/16 10/29/22 documented as of this encounter
--- OUTSIDE RECORDS SUMMARY | 2024-05-21 01:13 | XMS_ITS | Encounter Summary ---
Author Organization [facility] [place] [address] Care Team Providers Care Contact Agent Name Role Phone Olga Hoffman APRN Primary Care Provider [phone] Encounter Details Date Type Department Care Team (Late st Contact Info) Description 12/26/2022 Notes [place] [address] Tejas Henao PA [facility] [place] [address] Social History Tobacco Use Types Packs/Day Years Used Date Smoking Tobacco: Never Smokeless Tobacco: Never Sex and Gender Information Value Date Recorded Sex Assigned at Not on file Gender Identity Not on file Sexual Orientation Not on file documented as of this encounter H&P Notes * Tejas Henao PA - 12/26/2022 10:10 AM EDT Images from the original note were not included. Interventional Radiology Focused Pre-procedure H&P: PCP: Olga Hoffman APRN Procedure indication: Hepatomegaly, elevated liver function testing, CHAN IR workflow: Procedure request received through the Interventional Radiology eDH order queue. History of present illness: Per chart review, Charles Nick is a 47 y.o. male who presents to Interventional Radiology to undergo nonfocal hepatic biopsy in setting of fibrosis. This is a patient with hepatomegaly on CT imaging as well as persistently elevated liver function tests and stage 3 fibrosis on bedside evaluation. IR consulted for biopsy. Medical history notable for HTN, T2DM. Remainder of patient's medical and surgical history, allergies, medications, and social/family history obtained below as previously outlined in patient's medical record. IR history: none Imaging: Assessment: 47 y.o. male presenting to Interventional Radiology for parenchymal hepatic biopsy. Plan Planned procedure: Nonfocal parenchymal liver biopsy Labs to be performed day of procedure: No labs Sedation: Moderate (Conscious sedation) Prophylactic antibiotic : None Contrast: No contrast Additional medications for procedure: Lidocaine Position: Supine Consent: Pending Medications to discontinue (and days held): None Cytopathology presence needed: No Case Urgency:: G2- Elective Outpatient intervention within 8-14 days Labs: Lab Results Component Value Date HGB 16.0 12/12/2021 HCT 48.3 12/12/2021 WBC 9.1 12/12/2021 PLATELET 206 12/12/2021 INR 1.1 12/25/2022 BUN 8 (L) 12/25/2022 CREATININE 0.96 12/25/2022 ALBUMIN 4.2 12/25/2022 BILITOT 0.4 12/25/2022 AST 19 12/25/2022 ALT 23 12/25/2022 ALKPHOS 81 12/25/2022 Allergies: Penicillins Medications: Current Outpatient Medications on File Prior to Visit Medication Sig Dispense Refill ??? Trulicity 0.75 mg/0.5 mL Pen Injector INJECT 0.75MG UNDER THE SKIN ONCE A WEEK ??? citalopram (CeleXA) 10 mg tablet Take 10 mg by mouth daily. ??? famotidine (Pepcid) 20 mg tablet Take 20 mg by mouth 2 times daily. ??? valsartan (Diovan) 40 mg Tablet Take 20 mg by mouth daily. ??? tadalafiL (CIALIS) 10 mg Tablet TAKE 1 TABLET BY MOUTH ONCE A DAY NEEDED. TAKE 1 HOUR PRIOR TO SEXUAL INTERCOURSE ??? gabapentin (NEURONTIN) 600 mg Tablet Take 600 mg by mouth 3 times daily. ??? glimepiride (AMARYL) 4 mg Tablet Take 1 tablet by mouth 2 times daily. (Patient not taking: Reported on 12/25/2022) 180 tablet 3 ??? furosemide (Lasix) 20 mg Tablet Take 1 tablet by mouth 2 times daily. 180 tablet 3 ??? metFORMIN (GLUCOPHAGE) 1,000 mg Tablet Take 1,000 mg by mouth 2 times daily (with meals). No current facility-administered medications on file prior to visit. Past medical/surgical history: Patient Active Problem List Diagnosis Code ??? CKD (chronic kidney disease) stage 3, GFR 30-59 ml/min N18.30 ??? Obesity E66.9 Past Medical History: Diagnosis Date ??? CKD (chronic kidney disease) stage 3, GFR 30-59 ml/min 01/31/2011 ??? Obesity 01/31/2011 No past surgical history on file. Social history and habits: Social History Tobacco Use ??? Smoking status: Never ??? Smokeless tobacco: Never Significant family history: No family history on file. Pertinent ROS: as per HPI Physical exam: Pending (to be performed in interventional radiology the day of procedure) ASA: Pending (to be assessed in interventional radiology the day of procedure) Mallampati class: Pending (to be assessed in interventional radiology the day of procedure) 12/26/2022 JULIO Vega documented in this encounter Plan of Treatment Upcoming Encounters Date Type Department Care Team (Late st Contact Info) Description 05/21/2024 9:00 AM EDT Office [place] [address] Nighat López MD [facility] [place] [address] 05/28/2024 8:00 AM EDT Office Visit Hematology/Oncology at [address] [phone] Rodriguez Fowler MD [facility] [place] [address] Sherry Cedillo APRN [address] [place] [address] DR HEMATOLOGY AND ONCOLOGY [place], [place] [address] 05/28/2024 8:30 AM EDT Infusion Hematology Oncology at [address] [phone] 05/28/2024 9:30 AM EDT Clinical Support Hematology/Oncology at [address] [phone] Leah Rose, RD [facility] DR [place] [address] documented as of this encounter Visit Diagnoses Not on filedocumented in this encounter Care Teams Contact Agent Relationship Specialty Start Date End Date Olga Hoffman APRN [address] [place] [address] PCP - General Family Medicine 10/30/22 documented as of this encounter
--- OUTSIDE RECORDS SUMMARY | 2024-05-21 01:13 | XMS_ITS | Encounter Summary ---
[place] [address] Care Team Providers Care Flat Sorting Machine Clerk Name Role Phone Olga Hoffman APRN Primary Care Provider [phone] Reason for Referral * Diagnostic Test (Routine) - Closed Specialty Diagnoses / Procedures Referred By Contnina t Referred To Contact Radiology Diagnoses CHAN (nonalcoholic steatohepatitis) Procedures IR Biopsy Liver Percutaneous Esme Brown APRN [facility] [place] [address] [facility] [place] [address] Referral ID Status Reason Start Date Expiration Date V isits Requested Visits Authorized [id number] Closed Specialty Service Requested 12/25/2022 06/26/2024 1 1 Reason for Visit * Consultation (Routine) - Closed Specialty Diagnoses / Procedures Referred By Contnina holland Referred To Contact Gastroenterology Diagnoses Fatty liver Liver - fatty liver Olga Hoffman APRN [address] [place] [address] [facility] [address] [place] [phone] Referral ID Status Reason Start Date Expiration Date V isits Requested Visits Authorized [id number] Closed Consult, Test & Treat PCP Updated and/or Approved 10/30/2022 10/30/2023 12 12 Encounter Details Date Type Department Care Team (Late st Contact Info) Description 12/25/2022 10:30 AM EDT Office Visit [place] [address] Esme Brown APRN [facility] [place] [address] CHAN (nonalcoholic steatohepatitis) Social History Tobacco Use Types Packs/Day Years Used Date Smoking Tobacco: Never Smokeless Tobacco: Never Sex and Gender Information Value Date Recorded Sex Assigned at Not on file Gender Identity Not on file Sexual Orientation Not on file documented as of this encounter Last Filed Vital Signs Vital Sign Reading Time Taken Comments Blood Pressure 135/82 12/25/2022 10:40 AM EDT Pulse 76 12/25/2022 10:40 AM EDT Temperature - - Respiratory Rate - - Oxygen Saturation 97% 12/25/2022 10: 40 AM EDT Inhaled Oxygen Concentration - - Weight 124.6 kg (274 lb 11.2 oz) 2022 10:40 AM EDT Height 188 cm (6' 2) 12/25/2022 10:40 AM EDT Body Mass Index 35.27 12/25/2022 10:40 AM EDT documented in this encounter Progress Notes * Esme Brown APRN - 12/25/2022 10:30 AM EDT Images from the original note were not included. HEPATOLOGY NEW PATIENT CONSULTATION Charles Nick 1975 BACTERIOLOGIST PHARMACEUTICAL: ESME BROWN APRN PCP: Olga Hoffman APRN Requesting Provider: REASON FOR CONSULTATION elevated liver enzymes, suspected CHAN HISTORY OF PRESENT ILLNESS Charles Nick is a 47 y.o. year old male with past medical history of hypertension, depression, diabetes who presents today for elevated liver enzymes. He had a CT scan in September which showed hepatomegaly and hepatic steatosis. He also had elevated liver enzymes around that time. Prior to this he had never been told any concerns about his liver. He has also been referred to hematology for polycythemia and has an appointment with them next month. Had an EGD and colonscopy done at [facility] 2-3 weeks ago. Found a polyp in duodenum that was removed. Reinaldo not have these results He was prescribed Ozempic in July for treatment of that his diabetes and developed significant side effects, including vomiting after nearly every dose. He took this for 4 months and just stoppedtaking it 1 month ago. He did lose about 40 pounds while taking Ozempic. He is now taking Trulicityand does not have these side effects. ROS: Constitutional: no fatigue, fever, chills, no change in weight >10lbs in last 6 months Eye: no visual changes ENT: no URI symptoms Cardio: no chest pain, palpitations Resp: no cough, no SOB GI: see HPI. No blood in stools, no nausea/vomitting : no dysuria Integumentary: no new rashes, no easy bruising Musculoskeletal: no new joint pains, swelling of ankles or legs Neuro: no new numbness, weakness in extremities PAST MEDICAL/SURGICAL HISTORY Diabetes - diagnosed 6-7 years ago. Blood sugar 200-115. uusally around 120 in AM. Hypertension Depression MEDICATIONS Outpatient Medications Marked as Taking for the 12/25/22 encounter (Office Visit) with Esme Brown APRN Medication Sig Dispense Refill ??? Trulicity 0.75 [...] by mouth 2 times daily (with meals). He started taking citalopram about a month ago, states it is helped his mood significantly ALLERGIES Allergies Allergen Reactions ??? Penicillins Rash SOCIAL HISTORY [facility], [place]. 3 kids age 14, 12, 11. 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 Alcohol: on holidays will have 1-2 drinks. Not regular.When in would binge drink but has not drank heavily since then FAMILY HISTORY No known hx of liver diseaes. PHYSICAL EXAM Vitals: 12/25/22 1040 BP: 135/82 BP Location (NBP): Left arm Patient Position: Sitting BP Cuff Sizes: Large Adult (32-43 cm) Pulse: 76 SpO2: 97% Weight: 124.6 kg (274 lb 11.2 oz) Height: 188 cm (6' 2) Body mass index is 35.27 kg/m??. Gen: Well appearing, no apparent distress. Skin: no spider angiomata, no palmar erythema, no jaundice. HEENT: Sclerae anicteric, pupils equal, round, react to light. Pharynx unremarkable. Neck is supple, no adenopathy, no thyromegaly. Chest is clear. Heart: Regular rate and rhythm. Normal S1, S2, no murmurs. Abdomen: Normal bowel sounds; soft, non distended. No obvious hepatosplenomegaly. No evidence of ascites Extremities: No edema. Neuro: alert and oriented x3, no asterixis or tremor. Lab Results Component Value Date WBC 9.1 12/12/2021 HGB 16.0 12/12/2021 HCT 48.3 12/12/2021 MCV 76.2 (L) 12/12/2021 PLATELET 206 12/12/2021 No results for input(s): INR in the last 168 hours. No results found for: ALT, AST, GGT, ALKPHOS, BILITOT Chemistry Component Value Date/Time NA 139 12/12/2021 1407 K 4.1 12/12/2021 1407 CL 99 12/12/2021 1407 CO2 26 12/12/2021 1407 BUN 10 12/12/2021 1407 CREATININE 0.98 12/12/2021 1407 Component Value Date/Time CALCIUM 9.1 12/12/2021 1407 04/29/2022 ALT 32, AST 20 09/23/2022: ALT [...] 3/3 % hepatocytes affected: > 66 % ASSESSMENT/PLAN Charles Nick is a 47 y.o. male with past medical history of diabetes, hypertension, depression and elevated liver enzymes likely due to nonalcoholic fatty liver disease. He has not had a complete serologic work-up to rule out other causes of liver disease and so I will do that today. His metabolic risks include hypertension and diabetes. He has lost about 40 pounds in the past 4 months while he was taking Ozempic and this is very effective treatment for CHAN if this is the cause of his liver disease. His FibroScan today shows stage 3 fibrosis. This was somewhat unexpected given his only mild elevation in his liver enzymes and no signs of cirrhosis on imaging. I would like to get a liver biopsy tofurther clarify his fibrosis level. We discussed treatment of nonalcoholic fatty liver disease is based in lifestyle modification with weight loss. The mainstay of treatment. He has already lost 40 pounds in the past 4 months which is approximately 15% of his total body weight. Encouraged him to try to keep this weight off as he is no longer taking Ozempic Plan: - Percutaneous liver biopsy next available in interventional radiology - Blood work today -Follow-up visit on 01/24 at 9 AM Esme Brown APRN Section of Gastroenterology [place] [address] Copy: Olga Hoffman APRN [address] / [place] [id number] documented in this encounter Procedure Notes * Esme Brown APRN - 12/25/2022 10:30 AM EDTAssociated Order(s): FIBROSCAN Procedure(s): FIBROSCAN Pre-Procedure Diagnose(s): CHAN (nonalcoholic steatohepatitis) [facility] Liver Fibrosis Assessment Report Indication: Elevated liver enzymes, suspected NAFLD Performed by: ESME BROWN APRN Procedure: Vibration Controlled Transient Elastography (VCTE) or Fibroscan Rheems Protocol: Patient's identity, procedure and site were verified, confirmatory pause performed. Discussed procedure including risks and potential complications. Questions answered. Patient verbalizes understanding and wishes to proceed with Fibroscan assessment. Patient was placed in the supine position with right arm in maximum abduction to allow optimal exposure of right lateral abdomen. Patient was briefly assessed. Testing was performed in the mid-axillary location. 50Hz Shear Wave pulses were applied and the resulting Shear Wave and Propagation Speed was detected with a 3.5MHz ultrasonic signal, using the Fibroscan probe. Skin to liver capsule distance and liver parenchyma were accessed during the entire examination with the Fibroscan probe. Patient was instructed to breathe normally and abstain from sudden movements during the procedure. At least ten Sheer Waves were produced; individual measurements of each Shear Wave were calculated. Patient tolerated the procedure well with no complications. Fibroscan Results: Median kPa: 10.1 kpa Mean IQR: 15% (goal is <30 %) Number of valid measurements: 11 (at least 10 required) Number of invalid measurements: 0 Predicted fibrosis stage: F3 CAP (dB/m): 312 Estimated steatosis grade: 3/3 % hepatocytes affected: > 66 % Interpretation: Based on this Fibroscan result, history, clinical examination and review of laboratory and radiological data, this patient likely has stage 3 liver fibrosis and grade 3 steatosis affecting over 66% of hepatocytes. documented in this encounter Plan of Treatment Upcoming Encounters Date Type Department Care Team (Late st Contact Info) Description 05/21/2024 9:00 AM EDT Office [place] [address] Nighat López MD [facility] [place] [address] 05/28/2024 8:00 AM EDT Office Visit Hematology/Oncology at [address] [phone] Rodriguez Fowler MD [facility] [place] [address] Sherry Cedillo APRN [address] [place] [address] DR HEMATOLOGY AND ONCOLOGY [place], [place] [id number] 05/28/2024 8:30 AM EDT Infusion Hematology Oncology at [address] [phone] 05/28/2024 9:30 AM EDT Clinical Support Hematology/Oncology at [address] [phone] [address] [facility] HEMATOLOGY [place] [address] documented as of this encounter Procedures Procedure Name Priority Date/Time Associated Diagnosis Comments HC HEPATITIS C ANTIBODY Routine 12/25/2022 11:50 AM EDT CHAN (nonalcoholic steatohepatitis) HC PCH MITOCHONDRIAL ANTIBODY Routine 12/25/2022 11:50 AM EDT CHAN (nonalcoholic steatohepatitis) HC VENIPUNCTURE Routine 12/25/2022 11:50 AM EDT CHAN (nonalcoholic steatohepatitis) HC PCH SMOOTH MUSCLE AB, SERUM Routine 12/25/2022 11:50 AM EDT CHAN (nonalcoholic steatohepatitis) HC HEPATITIS B SURFACE AB Routine 12/25/2022 11:50 AM EDT CHAN (nonalcoholic steatohepatitis) HC HEPATITIS B SURFACE AG Routine 12/25/2022 11:50 AM EDT CHAN (nonalcoholic steatohepatitis) PROTHROMBIN TIME Routine 12/25/2022 11:5 0 AM EDT CHAN (nonalcoholic steatohepatitis) HC DNA AB DS (NOME) Routine 12/25/2022 11:50 AM EDT CHAN (nonalcoholic steatohepatitis) COMPREHENSIVE METABOLIC PANEL Routine 12/25/2022 11:50 AM EDT CHAN (nonalcoholic steatohepatitis) [id number] Routine 12/25/2022 10:30 AM EDT CHAN (nonalcoholic steatohepatitis) documented in this encounter Results * IR Biopsy Liver Percutaneous (01/07/2023 8:34 AM EDT) Anatomical Region Laterality Modality Abdomen X-Ray Angiograph y Narrative 01/07/2023 8:46 AM EDT Preoperative Diagnosis: ? Abnormal liver function tests. Postoperative Diagnosis: ?? Same. Procedure Performed: US guided ??non focal parenchymal liver biopsy. Estimated Blood Loss: Negligible. Operators: 1. Juan Wright MD. Attending 2. Charles Arroyo MD, Resident Anesthesia: 1. Conscious sedation with titrated Fentanyl and Versed during continuous hemodynamic monitoring including pulse oximetry, heart rate and blood pressure was provided by an independent qualified trained Nurse. ?? I was present during the intraservice time as documented by the IR Nurse. ?? Please see nursing notes for exact medication dosages. 2. 1% lidocaine, local. The patient was informed of the risks, benefits, and alternatives to the procedure and gave written consent, which was then placed in the chart. Appropriate time-out was performed prior to the procedure. Description of Procedure and Findings: All elements of maximal sterile barrier technique were met including cap, mask, sterile gown, sterile gloves, large sterile sheet, hand hygiene and 2% chlorhexidine for cutaneous antisepsis. The upper abdomen was prepped and draped in the usual sterile fashion. ?? Local anesthetic was administered. ??Using US guidance, a 19-gauge trocar needle was advanced into the inferior right hepatic lobe. Through this trocar needle, multiple 20-gauge cores were obtained. The needles were removed. A follow-up US demonstrates no evidence of capsular hematoma or free fluid. The patient tolerated the procedure well. Impression: Uneventful US guided liver parenchymal biopsy. I was the attending physician supervising the resident in the above care and I was present with the resident for the entire procedure. Esme Brown APRN IMG IR ORDERABLES * Hepatitis B Core Antibody, Total (12/25/2022 11:50 AM EDT) Hepatitis B Core Antibody Negative Negative [facility] Blood 12/25/2022 11:5 0 AM EDT 12/25/2022 12:13 PM EDT Narrative Resulting Agency Comment Spec In Lab Esme Brown APRN CHEMISTRY ORDERABL ES Performing Organization Address [facility] Co de Phone Number [facility] [place] [address] * Hepatitis B Surface Antibody (12/25/2022 11:50 AM EDT) Hepatitis B Surface Antibody, Quantitative <3.5 IU/L [facility] Comment: HepB Surface Ab Quant: Unvaccinated: < 8.5 IU/L Vaccinated: >= 11.5 IU/L Hepatitis B Surface Antibody Negative [facility] Comment: Patient is presumed to be not vaccinated or immune to HBV infection. Expected Results: Vaccinated: Positive Unvaccinated: Negative Blood 12/25/2022 11:5 0 AM EDT 12/25/2022 12:13 PM EDT Narrative Resulting Agency Comment Spec In Lab Esme Brown APRN CHEMISTRY ORDERABL ES Performing Organization Address [facility] Co de Phone Number [facility] [place] [address] * Hepatitis B Surface Antigen (12/25/2022 11:50 AM EDT) Hepatitis B Surface Antigen Negative Negative [facility] Blood 12/25/2022 11:5 0 AM EDT 12/25/2022 12:13 PM EDT Narrative Resulting Agency Comment Spec In Lab Esme A Niangua TOLL COLLECTOR CHEMISTRY ORDERABL ES Performing Organization Address City/[facility]/ZIP Co de Phone Number [facility] [place] [place] [address] * Hepatitis C Antibody (12/25/2022 11:50 AM EDT) Hepatitis C Antibody Negative Negative [facility] Blood 12/25/2022 11:5 0 AM EDT 12/25/2022 12:13 PM EDT Narrative Resulting Agency Comment Spec In Lab Esme Brown TOLL COLLECTOR CHEMISTRY ORDERABL ES Performing Organization Address [facility] Co de Phone Number [facility] [place] [address] * JENIFER Antibody Screen (12/25/2022 11:50 AM EDT) JENIFER Ab Screen Negative Negative [facility] Comment: This antinuclear antibody (JENIFER) screen is a qualitative test performed using a fluoroenzyme immunoassay on the Phadia 250 analyzer. This screen is designed to detect antibodies to U1RNP, SS-A/Ro, SS-B/La, centromere B, Scl-70, Tereza-1, and Sm(Delacruz) proteins in serum samples. Antibodies to other nuclear antibodies will not be detected with this assay. This JENIFER screen is also performed in concert with a quantitative for IgG antibodies to dsDNA. Please note that as of 07/09/2022 that this testing is performed by the Special Chemistry Laboratory at [facility]. This change in testing location is associated with a change is testing method and reference intervals. Please review the results of this test in association with the posted reference intervals. dsDNA Ab <0.6 <=15.0 IU/mL [facility] Comment: <10 negative 10-15 equivocal >15 positive This dsDNA antibody result was generated using a fluoroenzyme immunoassay on the Phadia 250 analyzer. This quantitative test is designed to detect IgG antibodies directed against double stranded DNA in human serum. The presence of antibodies that recognize dsDNA is a highly specific marker for systemic lupus erythematosus. Please note that as of 07/09/2022 that this testing is performed by the Special Chemistry Laboratory at [facility]. This change in testing location is associated with a change is testing method and reference intervals. Please review the results of this test in association with the posted reference intervals. Blood 12/25/2022 11:5 0 AM EDT 12/26/2022 7:24 AM EDT Narrative Resulting Agency Comment Spec In Lab Esme Brown YOCASTA [facility] SEND OUT ORDER DEDRA Performing Organization Address City/[facility] Co de Phone Number [facility] [place] [address] * Smooth Muscle Antibody (12/25/2022 11:50 AM EDT) Sm Muscle Ab (JANUARY) Negative Negative [facility] Comment: Negative: No further testing will be performed ADDITIONAL INFORMATION This test was developed and its performance characteristics determined by [facility] in a manner consistent with CLIA requirements. This test has not been cleared or approved by the U.S. Food and Drug Administration. Test Performed by: [facility] [place] [address] Lab Manager: Adam Gifford M.D. Ph.D.; CLIA# [id number] Blood 12/25/2022 11:5 0 AM EDT 12/25/2022 2:14 PM EDT Narrative Resulting Agency Comment Spec In Lab Esme Brown [facility] SEND OUT ORDER DEDRA Performing Organization Address [facility] Co de Phone Number [facility] [place] [address] * Mitochondrial Antibody, M2 (12/25/2022 11:50 AM EDT) Mitochon Ab (JANUARY) <0.1 <0.1 (Negative) [facility] Comment: Test Performed by: [facility] [place] [address] Lab Manager: Adam Gifford M.D. Ph.D.; CLIA# [id number] Blood 12/25/2022 11:5 0 AM EDT 12/25/2022 2:14 PM EDT Narrative Resulting Agency Comment Spec In Lab Esme Brown APRN LAB SEND OUT ORDER DEDRA Performing Organization Address [facility] Co de Phone Number [facility] [place] [address] * Prothrombin Time (12/25/2022 11:50 AM EDT) Prothrombin Time 12.3 9.4 - 12.5 sec [facility] International Normalization Ratio 1.1 [facility] Comment: An INR <2.0 indicates adequate procoagulant activity for hemostasis in most patients without underlying bleeding disorders, though the INR may not adequately reflect hemostatic capacity in patients with liver disease and synthetic impairment. The recommended target INR range for therapeutic anticoagulation is 2.0 ? 3.0 for most applications, though lower and higher ranges may be appropriate depending on clinical circumstances. Blood 12/25/2022 11:5 0 AM EDT 12/25/2022 12:12 PM EDT Narrative Resulting Agency Comment Spec In Lab Esme Brown APRN HEMATOLOGY ORDERAB LES Performing Organization Address [facility] Co de Phone Number [facility] [place] [address] * (ABNORMAL) Comprehensive metabolic panel (non-fasting) (12/25/2022 11:50 AM EDT) Glucose 110 65 - 199 mg/dL [facility] Comment:Diabetes: >=200 mg/d L plus symptoms Blood Urea Nitrogen 8(L) 10 - 20 mg/dL [facility] Creatinine 0.96 0.80 - 1.50 mg/dL [facility] Sodium 139 135 - 145 mmol/L [facility] Potassium 3.7 3.5 - 5.0 mmol/L [facility] Comment: Please note: ??Patients with WBC >100,000 may have falsely elevated Potassium levels. ??For accurate Potassium quantification in these patients send serum separator tube (gold top) for subsequent determinations. ??Contact the Clinical Chemistry Laboratory if there are any questions. Chloride 100 98 - 107 mmol/L [facility] Carbon Dioxide 27 22 - 31 mmol/L [facility] Anion Gap 12 5 - 15 mmol/L [facility] Calcium 8.8 8.5 - 10.5 mg/dL [facility] Protein, Total 7.3 6.1 - 8.0 g/dL [facility] Albumin 4.2 3.2 - 5.2 g/dL [facility] Aspartate Aminotransferase 19 0 - 39 unit/L [facility] Alanine Aminotransferase 23 0 - 55 unit/L [facility] Alkaline Phosphatase 81 40 - 130 unit/L [facility] Bilirubin, Total 0.4 0.2 - 1.3 mg/dL [facility] Est Glomerular Filtration Rate 98 >=60 mL/min/1. 73 m?? [facility] Comment: This patient's estimated GFR [...] and symptoms in addition to eGFR. Blood 12/25/2022 11:5 0 AM EDT 12/25/2022 12:12 PM EDT Narrative Resulting Agency Comment Spec In Lab Esme Brown APRN CHEMISTRY ORDERABL ES [facility] [place] [address] * [id number] (12/25/2022 10:30 AM EDT) Narrative Esme Brown APRN - 12/25/2022 10:30 AM EDT Esme Brown APRN ? 12/25/2022 ??5:04 PM [facility] Liver Fibrosis Assessment Report Indication: ?? Elevated liver enzymes, suspected NAFLD Performed by: ??ESME BROWN APRN Procedure: Vibration Controlled Transient Elastography (VCTE) or Fibroscan Rheems Protocol: Patient's identity, procedure and site were verified, confirmatory pause performed. Discussed procedure including risks and potential complications. Questions answered. Patient verbalizes understanding and wishes to proceed with Fibroscan assessment. Patient was placed in the supine position with right arm in maximum abduction to allow optimal exposure of right lateral abdomen. Patient was briefly assessed. Testing was performed in the mid-axillary location. 50Hz Shear Wave pulses were applied and the resulting Shear Wave and Propagation Speed was detected with a 3.5MHz ultrasonic signal, using the Fibroscan probe. Skin to liver capsule distance and liver parenchyma were accessed during the entire examination with the Fibroscan probe. Patient was instructed to breathe normally and abstain from sudden movements during the procedure. At least ten Sheer Waves were produced; individual measurements of each Shear Wave were calculated. Patient tolerated the procedure well with no complications. Fibroscan Results: Median kPa: 10.1 kpa Mean IQR: 15% (goal is <30 %) Number of valid measurements: 11 (at least 10 required) Number of invalid measurements: 0 Predicted fibrosis stage: F3 CAP (dB/m): 312 Estimated steatosis grade: 3/3 % hepatocytes affected: > 66 % Interpretation: Based on this Fibroscan result, history, clinical examination and review of laboratory and radiological data, this patient likely has stage 3 liver fibrosis and grade 3 steatosis affecting over 66% of hepatocytes. ?? Esme Brown APRN PROCEDURE/MINOR HERRON RGICAL ORDERABLES documented in this encounter Visit Diagnoses Diagnosis CHAN (nonalcoholic steatohepatitis) Other chronic nonalcoholic liver disease CHAN (nonalcoholic steatohepatitis) Other chronic nonalcoholic liver disease documented in this encounter Care Teams Flat Sorting Machine Clerk Relationship Specialty Start Date End Date Olga Hoffman APRN [address] [place] [address] PCP - General Family Medicine 10/30/22 documented as of this encounter
--- OUTSIDE RECORDS SUMMARY | 2024-05-21 01:13 | XMS_ITS | Encounter Summary ---
Author [place] [address] Care Team Providers Care Pot Holder Binder Name Role Phone Dariana Méndez MD Primary Care Provider [phone] Reason for Referral * Consultation (Routine) - Closed Specialty Diagnoses / Procedures Referred By Contac t Referred To Contact General Surgery Diagnoses Proteinuria Obesity Hypertension secondary to other renal disorders Morbid obesity due to excess calories Faye Maxwell MD [facility] [place] [address] [facility] Gen Surgery [address] [place] [phone] Referral ID Status Reason Start Date Expiration Date V isits Requested Visits Authorized [id number] Closed Assume Subset of Care 08/16/2016 08/16/2017 1 1 Reason for Visit * Consultation (Routine) - Closed Specialty Diagnoses / Procedures Referred By Contac t Referred To Contact Nephrology Diagnoses CHRONIC KIDNEY DISEASE Dariana Méndez MD [address] [place] [address] Faye Maxwell MD [facility] [place] [address] Referral ID Status Reason Start Date Expiration Date V isits Requested Visits Authorized [id number] Closed Consult & Test Connection Center 07/17/2016 07/17/2017 1 1 Encounter Details Date Type Department Care Team (Latest Contact Info) Description 08/16/2016 3:30 PM EST Office Visit Nephrology [place] [address] Faye Maxwell MD [facility] [place] [address] Proteinuria; Obesity; Hypertension secondary to other renal disorders; Morbid obesity due to excess calories Social History Tobacco Use Types Packs/Day Years Used Date Smoking Tobacco: Never Smokeless Tobacco: Never Sex and Gender Information Value Date Recorded Sex Assigned at Not on file Gender Identity Not on file Sexual Orientation Not on file documented as of this encounter Last Filed Vital Signs Vital Sign Reading Time Taken Comments Blood Pressure 140/74 08/15/2016 10:28 AM EST Pulse 88 08/15/2016 10:28 AM EST Temperature - - Respiratory Rate - - Oxygen Saturation - - Inhaled Oxygen Concentration - - Weight 164.2 kg (362 lb) 08/15/2016 10:28 AM EST Height 188 cm (6' 2) 08/15/2016 10:28 AM EST Body Mass Index 46.48 08/15/2016 10:28 AM EST documented in this encounter Progress Notes * Faye Maxwell MD - 08/16/2016 3:30 PM EST I had the pleasure of seeing your patient Charles Nickin the Renal and Hypertension clinic Charles Nick 1975 [id number] Chief Complaint: This is a followup visit to the Renal and Hypertension clinic for this 40 y.o. 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 He underwent biopsy in 2007 at [facility] which showedresolving membranous GN. Currently in remission. MR Park carters been doing well. He is in a new stable relationship. He is concerned that he has regained the weight he lost last year. He has no edema, dyspnea, chest pain. No foamy union or LUTs. No new medications. No NSAIDs Relevant comorbidities ?? Morbid obesity. ?? DMII diagnosed one year ago. No identified complications ?? Obstructive sleep apnea: Uses CPAP with improvement tin daytime alertness and mood ?? Depression, anxiety Reports his father, who lives in [place], has proteinuria and edema. Father is not diabetic. Most recent serum creatinine: 1.2 mg/dl Most recent eGFR > 60 Ml/min Most recent spot urine protein: creatinine ratio 0.2 Stable (approximates urinary protein in grams per 24h) Patient Active Problem List Diagnosis Code ??? CKD (chronic kidney disease) stage 3, GFR 30-59 ml/min N18.3 ??? Obesity E66.9 Medications Current Outpatient Prescriptions on File Prior to Visit Medication Sig Dispense Refill ??? lisinopril (PRINIVIL;ZESTRIL) 40 mg Tablet Take 1 tablet by mouth daily. 90 tablet 3 No current facility-administered medications on file prior to visit. Non-steroidal anti-inflammatory medications: None Past Medical History, Family and Social History Reviewed in CIS and/or paper chart Current Diet: regular Current excercise: none Review of Systems: Unchanged since visit except as noted above Physical Exam Charles Nick is a morbidly obese male who appears well Blood pressure 140/74, pulse 88, height 188 cm (6' 2), weight (!) 164.2 kg (362 lb). Vitals: 08/15/16 1028 BP: 140/74 Pulse: 88 Weight: (!) 164.2 kg (362 lb) Height: 188 cm (6' 2) Previous weight 159.7 kg BMI 48.1 The oropharynx and neck are unremarkable There is no peripheral edema to mid huff and no sacral edema. The chest is clear to auscultation. Three is no JVD The heart sound are S1 plus S2 with no rubs, murmurs or gallops. The abdomen is obese Urinalysis: Dipstick negative for blood, 100 protein Urine microscopy: no cells casts or crystals Laboratory and other data: Reviewed see eDH. Notable for: Random glucose 193 mg/dl , Mild polycythemia c/w JOSE, otherwise as above. Radiology studies reviewed: None this visit Diagnosis, Medical decision making and Recommendations: 1. 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 2. Obstructive sleep apnea well controlled 3. Morbid obesity. Requests referral to bariatric surgery clinic - referred 4. Anxiety and depression have been improved recently. 5. Followup visit: 12 months with labs. Labs ordered via eDH Thank you for involving me in the care of this very pleasant and interestingpatient CC: Dariana Méndez MD @[email or web address]@ documented in this encounter Plan of Treatment Upcoming Encounters Date Type Department Care Team (Late st Contact Info) Description 05/21/2024 9:00 AM EDT Office Visit [place] [address] Nighat López MD [facility] [place] [address] 05/28/2024 8:00 AM EDT Office Visit Hematology/Oncology at [address] [phone] Rodriguez Fowler MD [facility] [place] [address] Sherry Cedillo DISCHARGE RN [address] [place] [address] DR HEMATOLOGY AND ONCOLOGY [place], [place] [id number] 05/28/2024 8:30 AM EDT Infusion Hematology Oncology at [address] [phone] 05/28/2024 9:30 AM EDT Clinical Support Hematology/Oncology at [address] [phone] [facility] DR [place] [address] Scheduled Referrals Name Type Priority Associated Diagnoses Orde r Schedule Referral to Bariatric Surgery Program Outpatient Referral Routine Proteinuria Obesity Hypertension secondary to other renal disorders Morbid obesity due to excess calories Ordered: 08/16/2016 documented as of this encounter Procedures Procedure Name Priority Date/Time Associated Diagnosis Comments PROTEIN/CREATININE RATIO, URINE Routine 08/16/2016 3:30 PM EST Proteinuria Obesity Hypertension secondary to other renal disorders Morbid obesity due to excess calories BASIC METABOLIC PANEL Routine 08/16/2016 2:14 PM EST Proteinuria Obesity Hypertension secondary to other renal disorders Morbid obesity due to excess calories documented in this encounter Results * Uric acid (11/14/2017 3:39 PM EST) Uric Acid 5.0 3.5 - 8.5 mg/dL [facility] Blood specimen (specimen) 11/14/2017 3:39 PM EST 11/14/2017 3:56 PM EST Narrative Resulting Agency Comment Spec In Lab Fyae Maxwell MD CHEMISTRY ORDERABLES Performing Organization Address [facility]/ZIP Co de Phone Number [facility] [place] [address] * Albumin Level (11/14/2017 3:39 PM EST) Albumin 3.9 3.2 - 5.2 gm/dL [facility] Blood specimen (specimen) 11/14/2017 3:39 PM EST 11/14/2017 3:56 PM EST Narrative Resulting Agency Comment Spec In Lab Faye Maxwell MD CHEMISTRY ORDERABLES Performing Organization Address City/[facility]/ZIP Co de Phone Number [facility] [place] [address] * (ABNORMAL) Basic Metabolic Panel (non-fasting) (11/14/2017 3:39 PM EST) Glucose 313(H) 65 - 199 mg/dL [facility] Comment:Diabetes: >=200 mg/d L plus symptoms Blood Urea Nitrogen 11 10 - 20 mg/dL [facility] Creatinine 1.01 0.80 - 1.50 mg/dL [facility] Sodium 135 135 - 145 mmol/L [facility] Potassium 4.2 3.5 - 5.0 mmol/L [facility] Comment: Please note: ??Patients with WBC >100,000 may have falsely elevated Potassium levels. ??For accurate Potassium quantification in these patients send serum separator tube (gold top) for subsequent determinations. ??Contact the Clinical Chemistry Laboratory if there are any questions. Chloride 93(L) 98 - 107 mmol/L [facility] Carbon Dioxide 25 22 - 31 mmol/L [facility] Anion Gap 17(H) 5 - 15 mmol/L [facility] Calcium 8.9 8.5 - 10.5 mg/dL [facility] Est Glomerular Filtration Rate >60 >=60 [facility] Comment: The reported eGFR should be multiplied by 1.2 for patients. The MDRD is not an appropriate measure of renal function for patients with body mass extremes or in patients with acute kidney failure. [email or web address]/[email or web address] [email or web address] Blood specimen (specimen) 11/14/2017 3:39 PM EST 11/14/2017 3:56 PM EST Narrative Resulting Agency Comment Spec In Lab Faye Maxwell MD CHEMISTRY ORDERABLES Performing Organization Address [facility]/ZIP Co de Phone Number [facility] [place] [address] * (ABNORMAL) Protein/Creatinine Ratio, urine (08/16/2016 3:30 PM EST) Creatinine, Urine 137 mg/dL [facility] Protein, Urine 27(H) 0 - 12 mg/dL [facility] Protein / Creatinine Ratio, Urine 0.2 ratio [facility] Urine specimen (specimen) 08/16/2016 3:30 PM EST 08/16/2016 5:02 PM EST Narrative Resulting Agency Comment Spec In Lab Faye Maxwell MD URINE ORDERABLES Performing Organization Address City/[facility]/ZIP Co de Phone Number [facility] [place] [address] * (ABNORMAL) Basic Metabolic Panel (non-fasting) (08/16/2016 2:14 PM EST) Glucose 183 65 - 199 mg/dL [facility] Comment:Diabetes: >=200 mg/d L plus symptoms Blood Urea Nitrogen 11 10 - 20 mg/dL [facility] Creatinine 1.21 0.80 - 1.50 mg/dL [facility] Comment: Please note that the pediatric reference intervals supplied above were not validated at [facility]. Results from pediatric patients should be interpreted in conjunction to the patient's age, height and muscle mass. Sodium 139 135 - 145 mmol/L [facility] Potassium 4.3 3.5 - 5.0 mmol/L [facility] Comment: Please note: ??Patients with WBC >100,000 may have falsely elevated Potassium levels. ??For accurate Potassium quantification in these patients send serum separator tube (gold top) for subsequent determinations. ??Contact the Clinical Chemistry Laboratory if there are any questions. Chloride 97(L) 98 - 107 mmol/L [facility] Carbon Dioxide 30 22 - 31 mmol/L [facility] Anion Gap 12 5 - 15 mmol/L [facility] Calcium 9.0 8.5 - 10.5 mg/dL [facility] Est Glomerular Filtration Rate >60 >=60 [facility] Comment: This estimated GFR (eGFR) value was calculated using the MDRD equation which has been validated on patients between the ages of 18 and 70. The MDRD should not be used to assess kidney function in patients < 18 years of age or in patients with extremes of body mass, or in patients with acute kidney failure. This value should be multiplied by 1.2 for patients. For further information please copy and paste the following links into your internet browser. [email or web address] [email or web address] Blood specimen (specimen) 08/16/2016 2:14 PM EST 08/16/2016 2:19 PM EST Narrative Resulting Agency Comment Spec In Lab Faye Maxwell MD CHEMISTRY ORDERABLES [facility] [place] [address] documented in this encounter Visit Diagnoses Diagnosis Proteinuria Obesity Obesity, unspecified Hypertension secondary to other renal disorders Morbid obesity due to excess calories documented in this encounter Care Teams Pot Holder Binder Relationship Specialty Start Date End Date Dariana Méndez MD [address] [place] [address] PCP - General Family Medicine 07/16/16 10/29/22 documented as of this encounter
--- OUTSIDE RECORDS SUMMARY | 2024-05-21 01:13 | XMS_ITS | Encounter Summary ---
Author Organization [facility]ly [facility] [place] [address] Care Team Providers Care General Handling Supervisor Name Role Phone Olga Hoffman APRN Primary Care Provider [phone] Encounter Details Date Type Department Care Team (Latest Contact Info) Description 01/06/2023 8:00 AM EDT Laboratory Appointment Lab [address] [place] [phone] Type 2 diabetes mellitus with diabetic nephropathy, [...] EDT Office [place] [phone] Nighat López MD [facility] [place] [address] 05/28/2024 8:00 AM EDT Office Visit Hematology/Oncology at [address] [phone] Rodriguez Fowler MD [facility] [place] [address] Sherry Cedillo APRN [address] [place] [address] DR HEMATOLOGY AND ONCOLOGY [place], [place] [phone] 05/28/2024 8:30 AM EDT Infusion Hematology Oncology at [address] [phone] 05/28/2024 9:30 AM EDT Clinical Support Hematology/Oncology at [address] [phone] [facility] DR HEMATOLOGY AND [place] [address] documented as of this encounter Procedures Procedure Name Priority Date/Time Associated Diagnosis Comments HC PARATHYROID HORMONE(PTH INTACT Routine 01/06/2023 8:32 AM EDT Type 2 diabetes mellitus with diabetic nephropathy, 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 Obesity due to excess calories with serious comorbidity, unspecified classification HEMOGRAM Routine 01/06/2023 8:32 AM EDT Type 2 diabetes mellitus with diabetic nephropathy, 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 Obesity due to excess calories with serious comorbidity, unspecified classification DIFFERENTIAL, AUTOMATED Routine 01/06/2023 8:32 AM EDT Type 2 diabetes mellitus with diabetic nephropathy, 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 Obesity due to excess calories with serious comorbidity, unspecified classification IRON AND TIBC Routine 01/06/2023 8:32 AM EDT HC CBC,PLT & AUTO DIFF Routine 01/06/2023 8:32 AM EDT Type 2 diabetes mellitus with diabetic nephropathy, 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 Obesity due to excess calories with serious comorbidity, unspecified classification HC URIC ACID, SERUM Routine 01/06/2023 8 :32 AM EDT Type 2 diabetes mellitus with diabetic nephropathy, 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 Obesity due to excess calories with serious comorbidity, unspecified classification HC PHOSPHORUS, SERUM Routine 01/06/2023 8:32 AM EDT Type 2 diabetes mellitus with diabetic nephropathy, 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 Obesity due to excess calories with serious comorbidity, unspecified classification COMPREHENSIVE METABOLIC PANEL Routine 01/06/2023 8:32 AM EDT Type 2 diabetes mellitus with diabetic nephropathy, 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 Obesity due to excess calories with serious comorbidity, unspecified classification documented in this encounter Results * Iron and TIBC (01/06/2023 8:32 AM EDT) Iron 82 45 - 160 mcg/dL [facility] TIBC 340 250 - 450 mcg/dL [facility] Iron Saturation 24 20 - 50 % [facility] Blood Venous Draw / Unknown 01/06/2023 8:32 AM EDT 01/06/2023 8:43 AM EDT Narrative Resulting Agency Comment Spec In Lab Faye Maxwell MD CHEMISTRY ORDERABLES [facility] [address] * (ABNORMAL) Differential, Automated (01/06/2023 8:32 AM EDT) Neutrophil % 71.6 % [facility] Neutrophil Absolute 6.75(H) 1.70 - 6.10 x10(3)/mc L [facility] Lymph % 21.1 % [facility] Lymphocytes Abs 2.0 0.9 - 3.2 x10(3)/mc L [facility] Monocyte % 4.6 % [facility] Monocyte Abs 0.4 0.3 - 0.9 x10(3)/mc L [facility] Eos % 1.7 % [facility] Eosinophils Abs 0.2 0.0 - 0.4 x10(3)/mc L [facility] Basophil % 0.8 % [facility] Baso Absolute 0.1 0.0 - 0.1 x10(3)/ L [facility] Immature Gran % 0.20 % [facility] Comment: Immature granulocytes(IG's)percentage and absolute count will include metamyelocytes, myelocytes, and promyelocytes. Blood smears from CBCs yielding IG's will be scanned manually for concordance. If this scan disagrees with the automated IG or if promyelocytes are noted, a manual differential will be performed. Immature Gran Absolute 0.02 0.00 - 0.04 x10(3)/ L [facility] Blood 01/06/2023 8:32 AM EDT 01/06/2023 8:39 AM EDT Narrative Resulting Agency Comment Spec In Lab Faye Maxwell MD HEMATOLOGY ORDERABLE S [facility] [address] * (ABNORMAL) Hemogram (01/06/2023 8:32 AM EDT) White Blood Cell 9.4 4.0 - 9.5 x10(3)/ L [facility] Red Blood Cell 6.52(H) 4.58 - 5.54 x10(6)/ L [facility] Hemoglobin 16.2 13.7 - 16.5 g/dL [facility] Hematocrit 49.9(H) 40.5 - 48.5 % [facility] Mean Cell Volume 76.5(L) 82.9 - 93.1 fL [facility] Mean Cell Hemoglobin 24.8(L) 27.5 - 32.1 pg [facility] Mean Cell Hemoglobin Concentration 32.5 32.0 - 35.7 g/dL [facility] Platelet 228 145 - 357 x10(3)/ L [facility] RDW Standard Deviation 40.7 36.0 - 45.0 fL [facility] RDW coefficient of variation 15.5(H) 11.4 - 13.8 % [facility] Mean Platelet Volume 10.3 7.6 - 12.9 fL [facility] NRBC% auto 0.0 % [facility] NRBC Absolute 0.000 0.000 - 0.000 x10(3)/mc L [facility] Blood 01/06/2023 8:32 AM EDT 01/06/2023 8:39 AM EDT Narrative Resulting Agency Comment Spec In Lab Faye Maxwell MD HEMATOLOGY ORDERABLE S Performing Organization Address City/[facility]/ZIP Co de Phone Number [place] [address] * (ABNORMAL) PTH (01/06/2023 8:32 AM EDT) Parathyroid Hormone 121(H) 15 - 65 pg/mL [facility] Blood 01/06/2023 8:32 AM EDT 01/06/2023 8:39 AM EDT Narrative Resulting Agency Comment Spec In Lab Faye Maxwell MD CHEMISTRY ORDERABLES Performing Organization Address City/[facility] Co de Phone Number [place] [address] * Uric acid (01/06/2023 8:32 AM EDT) Uric Acid 6.7 3.5 - 8.5 mg/dL [facility] Blood 01/06/2023 8:32 AM EDT 01/06/2023 8:39 AM EDT Narrative Resulting Agency Comment Spec In Lab Faye Maxwell MD CHEMISTRY ORDERABLES Performing Organization Address City/[facility] Co de Phone Number [facility] [address] * Phosphorus (01/06/2023 8:32 AM EDT) Phosphorus 2.8 2.5 - 4.5 mg/dL [facility] Blood 01/06/2023 8:32 AM EDT 01/06/2023 8:39 AM EDT Narrative Resulting Agency Comment Spec In Lab Faye Maxwell MD CHEMISTRY ORDERABLES [facility] [place] [address] * Comprehensive metabolic panel (non-fasting) (01/06/2023 8:32 AM EDT) Glucose 142 65 - 199 mg/dL [facility] Comment:Diabetes: >=200 mg/d L plus symptoms Blood Urea Nitrogen 10 10 - 20 mg/dL [facility] Creatinine 1.03 0.80 - 1.50 mg/dL [facility] Sodium 140 135 - 145 mmol/L [facility] Potassium 4.4 3.5 - 5.0 mmol/L [facility] Comment: Please note: ??Patients with WBC >100,000 may have falsely elevated Potassium levels. ??For accurate Potassium quantification in these patients send serum separator tube (gold top) for subsequent determinations. ??Contact the Clinical Chemistry Laboratory if there are any questions. Chloride 100 98 - 107 mmol/L [facility] Carbon Dioxide 30 22 - 31 mmol/L [facility] Anion Gap 10 5 - 15 mmol/L [facility] Calcium 9.3 8.5 - 10.5 mg/dL [facility] Protein, Total 7.9 6.1 - 8.0 g/dL [facility] Albumin 4.5 3.2 - 5.2 g/dL [facility] Aspartate Aminotransferase 17 0 - 39 unit/L [facility] Alanine Aminotransferase 19 0 - 55 unit/L [facility] Alkaline Phosphatase 90 40 - 130 unit/L [facility] Bilirubin, Total 0.5 0.2 - 1.3 mg/dL [facility] Est Glomerular Filtration Rate 90 >=60 mL/min/1. 73 m?? [facility] Comment: This patient's estimated GFR [...] and symptoms in addition to eGFR. 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
--- OUTSIDE RECORDS SUMMARY | 2024-05-21 01:13 | XMS_ITS | Encounter Summary ---
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 Social History Tobacco Use Types Packs/Day Years [...] 9:00 AM EDT Office [place] [phone] Nighat López MD [facility] [place] [address] 05/28/2024 8:00 AM EDT Office Visit Hematology/Oncology at [address] [phone] Rodriguez Fowler MD [facility] [place] [address] Sherry Cedillo APRN [address] [place] [address] DR HEMATOLOGY AND ONCOLOGY [place], [place] [phone] 05/28/2024 8:30 AM EDT Infusion Hematology Oncology at [address] [phone] 05/28/2024 9:30 AM EDT Clinical Support Hematology/Oncology at [address] [phone] Leah Rose, RD [facility] DR HEMATOLOGY [place] [address] documented as of this encounter Procedures Procedure Name Priority Date/Time Associated Diagnosis Comments HC PARATHYROID HORMONE(PTH INTACT Routine 12/12/2021 2:07 PM EDT 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 HEMOGRAM Routine 12/12/2021 2:07 PM EDT 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 DIFFERENTIAL, AUTOMATED Routine 12/12/2021 2:07 PM EDT 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 HC CBC,PLT & AUTO DIFF Routine 12/12/2021 2:07 PM EDT 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 HC URIC ACID, SERUM Routine 12/12/2021 2 :07 PM EDT 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 HC VENIPUNCTURE Routine 12/12/2021 2:07 PM EDT 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 HC ALBUMIN, SERUM Routine 12/12/2021 2:0 7 PM EDT 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 BASIC METABOLIC PANEL Routine 12/12/2021 2:07 PM EDT 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 documented in this encounter Results * Differential, Automated (12/12/2021 2:07 PM EDT) Neutrophil % 65.4 % [facility] Neutrophil Absolute 5.96 1.70 - 6.10 x10(3)/[facility] LAB[facility] Lymph % 26.1 % [facility] Lymphocytes Abs 2.4 0.9 - 3.2 x10(3)/[facility] Monocyte % 5.4 % [facility] Monocyte Abs 0.5 0.3 - 0.9 x10(3)/[facility] LABOR[facility]ORY Eos % 2.2 % [facility] Eosinophils Abs 0.2 0.0 - 0.4 x10(3)/[facility] Basophil % 0.7 % [facility] Baso Absolute 0.1 0.0 - 0.1 x10(3)/[facility] Immature Gran % 0.20 % [facility] Comment: Immature granulocytes(IG's)percentage and absolute count will include metamyelocytes, myelocytes, and promyelocytes. Blood smears from CBCs yielding IG's will be scanned manually for concordance. If this scan disagrees with the automated IG or if promyelocytes are noted, a manual differential will be performed. Immature Gran Absolute 0.02 0.00 - 0.04 x10(3)/[facility] Blood 12/12/2021 2:07 PM EDT 12/12/2021 2:14 PM EDT Narrative Resulting Agency Comment Spec In Lab Faye Maxwell MD HEMATOLOGY ORDERABLE S [facility] [place] [address] * (ABNORMAL) Hemogram (12/12/2021 2:07 PM EDT) White Blood Cell 9.1 4.0 - 9.5 x10(3)/[facility] LABORATORY Red Blood Cell 6.34(H) 4.58 - 5.54 x10(6)/[facility] LABORATORY Hemoglobin 16.0 13.7 - 16.5 g/dL [facility] Hematocrit 48.3 40.5 - 48.5 % [facility] Mean Cell Volume 76.2(L) 82.9 - 93.1 fL [facility] Mean Cell Hemoglobin 25.2(L) 27.5 - 32.1 pg [facility] Mean Cell Hemoglobin Concentration 33.1 32.0 - 35.7 g/dL [facility] Platelet 206 145 - 357 x10(3)/mc L [facility] RDW Standard Deviation 38.4 36.0 - 45.0 fL [facility] RDW coefficient of variation 14.4(H) 11.4 - 13.8 % [facility] Mean Platelet Volume 10.0 7.6 - 12.9 fL [facility] NRBC% auto 0.0 % [facility] NRBC Absolute 0.000 0.000 - 0.000 x10(3)/mc L [facility] Blood 12/12/2021 2:07 PM EDT 12/12/2021 2:14 PM EDT Narrative Resulting Agency Comment Spec In Lab Faye Maxwell MD HEMATOLOGY ORDERABLE S [facility] [place] [address] * Basic Metabolic Panel (non-fasting) (12/12/2021 2:07 PM EDT) Glucose 140 65 - 199 mg/dL [facility] Comment:Diabetes: >=200 mg/d L plus symptoms Blood Urea Nitrogen 10 10 - 20 mg/dL [facility] Creatinine 0.98 0.80 - 1.50 mg/dL [facility] Sodium 139 135 - 145 mmol/L [facility] Potassium 4.1 3.5 - 5.0 mmol/L [facility] Comment: Please note: ??Patients with WBC >100,000 may have falsely elevated Potassium levels. ??For accurate Potassium quantification in these patients send serum separator tube (gold top) for subsequent determinations. ??Contact the Clinical Chemistry Laboratory if there are any questions. Chloride 99 98 - 107 mmol/L [facility] Carbon Dioxide 26 22 - 31 mmol/L [facility] Anion Gap 14 5 - 15 mmol/L [facility] Calcium 9.1 8.5 - 10.5 mg/dL [facility] Est Glomerular Filtration Rate 92 >=60 mL/min/1. 73 m?? [facility] Comment: This patient? s estimated glomerular filtration rate (eGFR) is between 92 mL/min/1.73 m2 (patients with less muscle mass per kg body weight) and 107 mL/min/1.73 m2 (patients with more muscle mass per kg body weight) as determined by the CKD-EPI equation. Assessment of eGFR is not appropriate when creatinine concentrations are rapidly changing. For clinical decisions where creatinine clearance will affect therapy, a 24-hour urine creatinine clearance may be advised. Assignment of CKD stage 1 - 5 for patients with an eGFR near the transition point between stages may be based on clinical assessment of muscle mass and symptoms in addition to eGFR. Blood 12/12/2021 2:07 PM EDT 12/12/2021 2:14 PM EDT Narrative Resulting Agency Comment Spec In Lab Faye Maxwell MD CHEMISTRY ORDERABLES Performing Organization Address [facility] Co de Phone Number [facility] [place] [address] * (ABNORMAL) PTH (12/12/2021 2:07 PM EDT) Parathyroid Hormone 69(H) 15 - 65 pg/mL [facility] Blood 12/12/2021 2:07 PM EDT 12/12/2021 2:14 PM EDT Narrative Resulting Agency Comment Spec In Lab Faye Maxwell MD CHEMISTRY ORDERABLES Performing Organization Address [facility]/ZIP Co de Phone Number [facility] [place] [address] * Albumin Level (12/12/2021 2:07 PM EDT) Albumin 4.1 3.2 - 5.2 g/dL [facility] Blood 12/12/2021 2:07 PM EDT 12/12/2021 2:14 PM EDT Narrative Resulting Agency Comment Spec In Lab Faye Maxwell MD CHEMISTRY ORDERABLES [facility] [place] [address] * Uric acid (12/12/2021 2:07 PM EDT) Uric Acid 5.1 3.5 - 8.5 mg/dL [facility] Blood 12/12/2021 2:07 PM EDT 12/12/2021 2:14 PM EDT Narrative Resulting Agency Comment Spec In Lab Faye Maxwell MD CHEMISTRY ORDERABLES Performing Organization Address City/[facility]/ZIP Co de Phone Number [facility] [place] [address] * Phosphorus (12/12/2021 2:07 PM EDT) Phosphorus 3.0 2.5 - 4.5 mg/dL [facility] Blood 12/12/2021 2:07 PM EDT 12/12/2021 2:14 PM EDT Narrative Resulting Agency Comment Spec In Lab Faye Maxwell MD CHEMISTRY ORDERABLES Performing Organization Address City/[facility]/ZIP Co de Phone Number [facility] [place] [address] documented in this encounter Visit Diagnoses Diagnosis 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
--- OUTSIDE RECORDS SUMMARY | 2024-05-21 01:13 | XMS_ITS | Encounter Summary ---
Author Organization [facility] [place] [address] Care Team Providers Care Cancer Program Coordinator Name Role Phone Dariana Méndez MD Primary Care Provider [phone] Encounter Details Date Type Department Care Team (Latest Contact Info) Description 12/22/2018 9:00 AM EDT Laboratory Appointment Lab [address] [place] [address] Proteinuria, unspecified type; Obesity, unspecified classification, unspecified obesity type, unspecified whether serious comorbidity present; Hypertension secondary to other renal disorders Social History Tobacco Use Types Packs/Day Years [...] 9:00 AM EDT Office [place] [address] Nighat López MD [facility] [place] [address] 05/28/2024 8:00 AM EDT Office Visit Hematology/Oncology at [address] [phone] Rodriguez Fowler MD [facility] [place] [address] Sherry Cedillo APRN [address] [place] [address] [place] [address] 05/28/2024 8:30 AM EDT Infusion Hematology Oncology at [address] [phone] 05/28/2024 9:30 AM EDT Clinical Support Hematology/Oncology at [address] [phone] Leah Rose, RD [facility] [place] [address] documented as of this encounter Procedures Procedure Name Priority Date/Time Associated Diagnosis Comments HEMOGRAM Routine 12/22/2018 9:49 AM EDT Proteinuria, unspecified type Obesity, unspecified classification, unspecified obesity type, unspecified whether serious comorbidity present Hypertension secondary to other renal disorders DIFFERENTIAL, AUTOMATED Routine 12/22/2018 9:49 AM EDT Proteinuria, unspecified type Obesity, unspecified classification, unspecified obesity type, unspecified whether serious comorbidity present Hypertension secondary to other renal disorders CBC (WITH DIFF) Routine 12/22/2018 9:49 AM EDT Proteinuria, unspecified type Obesity, unspecified classification, unspecified obesity type, unspecified whether serious comorbidity present Hypertension secondary to other renal disorders URIC ACID Routine 12/22/2018 9:49 AM EDT Proteinuria, unspecified type Obesity, unspecified classification, unspecified obesity type, unspecified whether serious comorbidity present Hypertension secondary to other renal disorders ALBUMIN LEVEL Routine 12/22/2018 9:49 AM EDT Proteinuria, unspecified type Obesity, unspecified classification, unspecified obesity type, unspecified whether serious comorbidity present Hypertension secondary to other renal disorders BASIC METABOLIC PANEL Routine 12/22/2018 9:49 AM EDT Proteinuria, unspecified type Obesity, unspecified classification, unspecified obesity type, unspecified whether serious comorbidity present Hypertension secondary to other renal disorders documented in this encounter Results * Differential, Automated (12/22/2018 9:49 AM EDT) Pathologist [facility] Neutrophil % 71.7 % [facility] Neutrophil Absolute 5.01 1.70 - 6.10 x10(3)/[facility] LABORATORY Lymph % 21.5 % [facility] Lymphocytes Abs 1.5 0.9 - 3.2 x10(3)/[facility] LABORATORY Monocyte % 4.7 % [facility] Monocyte Abs 0.3 0.3 - 0.9 x10(3)/[facility] LABORATORY Eos % 1.4 % [facility] Eosinophils Abs 0.1 0.0 - 0.4 x10(3)/[facility] LABORATORY Basophil % 0.6 % [facility] Baso Absolute 0.0 0.0 - 0.1 x10(3)/[facility] LABORATORY Immature Gran % 0.10 % [facility] Comment: Immature granulocytes(IG's)percentage and absolute count will include metamyelocytes, myelocytes, and promyelocytes. Blood smears from CBCs yielding IG's will be scanned manually for concordance. If this scan disagrees with the automated IG or if promyelocytes are noted, a manual differential will be performed. Immature Gran Absolute 0.01 0.00 - 0.04 x10(3)/[facility] LABORATORY Blood specimen (specimen) 12/22/2018 9:49 AM EDT 12/22/2018 10:01 AM EDT Narrative Resulting Agency Comment Spec In Lab Faye Maxwell MD HEMATOLOGY ORDERABLE S [facility] [place] [address] * (ABNORMAL) Hemogram (12/22/2018 9:49 AM EDT) White Blood Cell 7.0 4.0 - 9.5 x10(3)/ L [facility] Red Blood Cell 6.09(H) 4.58 - 5.54 x10(6)/ L [facility] Hemoglobin 15.2 13.7 - 16.5 gm/dL [facility] Hematocrit 47.0 40.5 - 48.5 % [facility] Mean Cell Volume 77.2(L) 82.9 - 93.1 fL [facility] Mean Cell Hemoglobin 25.0(L) 27.5 - 32.1 pg [facility] Mean Cell Hemoglobin Concentration 32.3 32.0 - 35.7 gm/dL [facility] Platelet 163 145 - 357 x10(3)/[facility] LABORATORY RDW Standard Deviation 40.2 36.0 - 45.0 [facility] LABORATORY RDW coefficient of variation 14.7(H) 11.4 - 13.8 % [facility] Mean Platelet Volume 11.3 7.6 - 12.9 fL [facility] NRBC% auto 0.0 % [facility] NRBC Absolute 0.000 0.000 - 0.000 x10(3)/[facility] LABORATORY Blood specimen (specimen) 12/22/2018 9:49 AM EDT 12/22/2018 10:01 AM EDT Narrative Resulting Agency Comment Spec In Lab Faye Maxwell MD HEMATOLOGY ORDERABLE S [facility] [place] [address] * (ABNORMAL) Basic Metabolic Panel (non-fasting) (12/22/2018 9:49 AM EDT) Glucose 409(H) 65 - 199 mg/dL [facility] Comment:Diabetes: >=200 mg/d L plus symptoms Blood Urea Nitrogen 8(L) 10 - 20 mg/dL [facility] Creatinine 0.85 0.80 - 1.50 mg/dL [facility] Sodium 134(L) 135 - 145 mmol/L [facility] Potassium 4.3 3.5 - 5.0 mmol/L [facility] Comment: Please note: ??Patients with WBC >100,000 may have falsely elevated Potassium levels. ??For accurate Potassium quantification in these patients send serum separator tube (gold top) for subsequent determinations. ??Contact the Clinical Chemistry Laboratory if there are any questions. Chloride 101 98 - 107 mmol/L [facility] Carbon Dioxide 22 22 - 31 mmol/L [facility] Anion Gap 11 5 - 15 mmol/L [facility] Calcium 8.9 8.5 - 10.5 mg/dL [facility] Est Glomerular Filtration Rate 106 >=60 mL/min/1. 73 m?? [facility] Comment: The eGFR was calculated using the CKD-EPI equation. As with all creatinine based estimates of kidney function, eGFR values calculated with the CKD-EPI equation are not accurate in patients with acute kidney failure, extremes of body mass or the acutely ill. http://Bundlr/DHnkf eGFR 123 >=60 mL/min/1. 73 m?? [facility] Comment: The eGFR was calculated using the CKD-EPI equation. As with all creatinine based estimates of kidney function, eGFR values calculated with the CKD-EPI equation are not accurate in patients with acute kidney failure, extremes of body mass or the acutely ill. http://Bundlr/DHnkf Blood specimen (specimen) 12/22/2018 9:49 AM EDT 12/22/2018 10:01 AM EDT Narrative Resulting Agency Comment Spec In Lab Faye Maxwell MD CHEMISTRY ORDERABLES [facility] [place] [address] * Albumin Level (12/22/2018 9:49 AM EDT) Albumin 3.7 3.2 - 5.2 gm/dL [facility] Blood specimen (specimen) 12/22/2018 9:49 AM EDT 12/22/2018 10:01 AM EDT Narrative Resulting Agency Comment Spec In Lab Faye Maxwell MD CHEMISTRY ORDERABLES Performing Organization Address City/[facility] [place] [address] * Uric acid (12/22/2018 9:49 AM EDT) Uric Acid 4.0 3.5 - 8.5 mg/dL [facility] Blood specimen (specimen) 12/22/2018 9:49 AM EDT 12/22/2018 10:01 AM EDT Narrative Resulting Agency Comment Spec In Lab Faye Maxwell MD CHEMISTRY ORDERABLES Performing Organization Address [facility] Co de Phone Number [facility] [place] [address] documented in this encounter Visit Diagnoses Diagnosis Proteinuria, unspecified type Obesity, unspecified classification, unspecified obesity type, unspecified whether serious comorbidity present Hypertension secondary to other renal disorders documented in this encounter Care Teams Cancer Program Coordinator Relationship Specialty Start Date End Date Dariana Méndez MD [address] [place] [address] PCP - General Family Medicine 07/16/16 10/29/22 documented as of this encounter
--- OUTSIDE RECORDS SUMMARY | 2024-05-21 01:13 | XMS_ITS | Encounter Summary ---
Author Organization [facility] [place] [address] Care Team Providers Care Junior Web Designer Name Role Phone Dariana Méndez MD Primary Care Provider Encounter Details Date Type Department Care Team (Late st Contact Info) Description 12/08/2019 Telephone [place] [phone] Shahida Joshi Social History Tobacco Use Types Packs/Day Years Used Date Smoking Tobacco: Never Smokeless Tobacco: Never Sex and Gender Information Value Date Recorded Sex Assigned at Not on file Gender Identity Not on file Sexual Orientation Not on file documented as of this encounter Miscellaneous Notes * Telephone Encounter - Shahida Joshi - 12/08/2019 11:21 AM EDT Tried to reach patient several times to rossy follow up apt, have not heard back from patient therforclosing out recall documented in this encounter Plan of Treatment Upcoming Encounters Date Type Department Care Team (Late st Contact Info) Description 05/21/2024 9:00 AM EDT Office [place] [phone] Nighat López MD [facility] [place] [address] 05/28/2024 8:00 AM EDT Office Visit Hematology/Oncology at [address] [phone] Rodriguez Fowler MD [facility] [place] [address] Sherry Cedillo APRN [address] [place] [address] DR HEMATOLOGY AND ONCOLOGY [place], [place] [id number] 05/28/2024 8:30 AM EDT Infusion Hematology Oncology at [address] [phone] 05/28/2024 9:30 AM EDT Clinical Support Hematology/Oncology at [address] [phone] [facility] DR [place]EMATOLOGY [place] [address] documented as of this encounter Visit Diagnoses Not on filedocumented in this encounter Care Teams Junior Web Designer Relationship Specialty Start Date End Date Dariana Méndez MD [address] [place] [address] PCP - General Family Medicine 07/16/16 10/29/22 documented as of this encounter
--- OUTSIDE RECORDS SUMMARY | 2024-05-21 01:13 | XMS_ITS | Encounter Summary ---
Author Organization [facility] [place] [address] Care Team Providers Care Metal Bonding Assembler Name Role Phone Olga Hoffman APRN Primary Care Provider [phone] Encounter Details Date Type Department Care Team (Latest Contact Info) Description 01/06/2023 Travel Social History Tobacco Use Types Packs/Day [...] 9:00 AM EDT Office [place] [address] Nighat López MD [facility] [place] [address] 05/28/2024 8:00 AM EDT Office Visit Hematology/Oncology at [address] [phone] Rodriguez Fowler MD [facility] [place] [address] Sherry Cedillo APRN [address] [place] [address] DR HEMATOLOGY AND ONCOLOGY [place], [place] [address] 05/28/2024 8:30 AM EDT Infusion Hematology Oncology at [address] [phone] 05/28/2024 9:30 AM EDT Clinical Support Hematology/Oncology at [address] [phone] Leah Rose, RD [facility] DR [place] [address] documented as of this encounter Visit Diagnoses Not on filedocumented in this encounter Care Teams Metal Bonding Assembler Relationship Specialty Start Date End Date Olga Hoffman APRN [address] [place] [address] PCP - General Family Medicine 10/30/22 documented as of this encounter
--- OUTSIDE RECORDS SUMMARY | 2024-05-21 01:13 | XMS_ITS | Encounter Summary ---
Author Organization [facility] [place] [address] Care Team Providers Care Geological Specialist Name Role Phone Dariana Méndez MD Primary Care Provider [phone] Encounter Details Date Type Department Care Team (Late st Contact Info) Description 09/30/2019 Telephone [place] [phone] Shahida Joshi Social History Tobacco Use Types Packs/Day Years Used Date Smoking Tobacco: Never Smokeless Tobacco: Never Sex and Gender Information Value Date Recorded Sex Assigned at Not on file Gender Identity Not on file Sexual Orientation Not on file documented as of this encounter Miscellaneous Notes * Telephone Encounter - Shahida Josih - 09/30/2019 12:38 PM EST LMOM for Pt to rossy apt documented in this encounter Plan of Treatment Upcoming Encounters Date Type Department Care Team (Late st Contact Info) Description 05/21/2024 9:00 AM EDT Office [place] [phone] Nighat López MD [facility] [place] [address] 05/28/2024 8:00 AM EDT Office Visit Hematology/Oncology at [address] [phone] Rodriguez Fowler MD [facility] [place] [address] Sherry Cedillo APRN [address] [place] [address] DR HEMATOLOGY AND ONCOLOGY [place], [place] [id number] 05/28/2024 8:30 AM EDT Infusion Hematology Oncology at [address] [phone] 05/28/2024 9:30 AM EDT Clinical Support Hematology/Oncology at [address] [phone] [facility] DR HEMATOLOGY [place] [address] documented as of this encounter Visit Diagnoses Not on filedocumented in this encounter Care Teams Geological Specialist Relationship Specialty Start Date End Date Dariana Méndez MD [address] [place] [address] PCP - General Family Medicine 07/16/16 10/29/22 documented as of this encounter
--- OUTSIDE RECORDS SUMMARY | 2024-05-21 01:13 | XMS_ITS | Encounter Summary ---
[place] [address] Care Team Providers Care Caramel Candy Maker Name Role Phone Olga Hoffman APRN Primary Care Provider [phone] Reason for Referral * Consultation (Routine) - Closed Specialty Diagnoses / Procedures Referred By Janak holland Referred To Contact Gastroenterology Diagnoses Fatty liver Liver - fatty liver Olga Hoffman APRN [address] [place] [address] [facility] [place] [address] [address] Referral ID Status Reason Start Date Expiration Date V isits Requested Visits Authorized [id number] Closed Consult, Test & Treat PCP Updated and/or Approved 10/30/2022 10/30/2023 12 12 Encounter Details Date Type Department Care Team (Late st Contact Info) Description 10/30/2022 Transcribe Orders eDH Incoming Referrals [phone] Olga Hoffman APRN [address] [place] [address] Fatty liver Social History Tobacco Use Types Packs/Day Years [...] 9:00 AM EDT Office [place] [address] Nighat López MD [facility] DR [place]OCR[place] [address] 05/28/2024 8:00 AM EDT Office Visit Hematology/Oncology at [address] [phone] Rodriguez Fowler MD [facility] [place] [address] Sherry Cedillo APRN [address] [place] [address] DR HEMATOLOGY AND ONCOLOGY [place], [place] [id number] 05/28/2024 8:30 AM EDT Infusion Hematology Oncology at [address] [phone] 05/28/2024 9:30 AM EDT Clinical Support Hematology/Oncology at [address] [phone] Leah Rose, ARASH [facility] DR HEMATOLOGY [place] [address] Scheduled Referrals Name Type Priority Associated Diagnoses Order Schedule Referral to Gastroenterology Outpatient Referral Routine Fatty liver Ordered: 10/30/2022 documented as of this encounter Visit Diagnoses Diagnosis Fatty liver Other chronic nonalcoholic liver disease documented in this encounter Care Teams Caramel Candy Maker Relationship Specialty Start Date End Date Olga Hoffman APRN [address] [place] [address] PCP - General Family Medicine 10/30/22 documented as of this encounter
--- OUTSIDE RECORDS SUMMARY | 2024-05-21 01:13 | XMS_ITS | Encounter Summary ---
Author Organization [facility] [place] [address] Care Team Providers Care Coding Consultant Name Role Phone DaltonOlga choi Arabella RUST Primary Care Provider [phone] Encounter Details Date Type Department Care Team (Latest Contact Info) Description 01/02/2023 Travel Social History Tobacco Use Types Packs/Day [...] AM EDT Office [place] [address] Nighat López MD [facility] [place] [address] 05/28/2024 8:00 AM EDT Office Visit Hematology/Oncology at [address] [phone] Rodriguez Fowler MD [facility] [place] [address] Sherry Cedillo APRN [address] [place] [address] DR HEMATOLOGY AND ONCOLOGY [place], [place] [phone] 05/28/2024 8:30 AM EDT Infusion Hematology Oncology at [address] [phone] 05/28/2024 9:30 AM EDT Clinical Support Hematology/Oncology at [address] [phone] Leah Rose, ARASH [facility] DR [place] [address] documented as of this encounter Visit Diagnoses Not on filedocumented in this encounter Care Teams Coding Consultant Relationship Specialty Start Date End Date Olga Hoffman APRN [address] [place] [address] PCP - General Family Medicine 10/30/22 documented as of this encounter
--- OUTSIDE RECORDS SUMMARY | 2024-05-21 01:13 | XMS_ITS | Encounter Summary ---
Author Organization [facility] [place] [address] Care Team Providers Care Weigher Operator Name Role Phone Olga Hoffman APRN Primary Care Provider [phone] Reason for Referral * Diagnostic Test (Routine) - Closed Specialty Diagnoses / Procedures Referred By Contac t Referred To Contact Radiology Diagnoses CHAN (nonalcoholic steatohepatitis) Procedures IR Biopsy Liver Percutaneous Eugenia Barrera [facility] [place] [address] [place] [address] Referral ID Status Reason Start Date Expiration Date V isits Requested Visits Authorized [id number] Closed Specialty Service Requested 12/25/2022 06/26/2024 1 1 Reason for Visit * Diagnostic Test (Routine) - Closed Specialty Diagnoses / Procedures Referred By Contac t Referred To Contact Radiology Diagnoses CHAN (nonalcoholic steatohepatitis) Procedures IR Biopsy Liver Percutaneous Eugenia Barrera [facility] [place] [address] [place] [address] Referral ID Status Reason Start Date Expiration Date V isits Requested Visits Authorized [id number] Closed Specialty Service Requested 12/25/2022 06/26/2024 1 1 Encounter Details Date Type Department Care Team (Latest Contact Info) Description 01/07/2023 7:15 AM EDT - 01/07/2023 11:59 PM EDT Hospital Encounter Radiology at [facility] [place] [address] Eugenia Barrera APRN [facility] [address] CHAN (nonalcoholic steatohepatitis) Discharge Disposition: Home Social History Tobacco Use [...] Sign Reading Time Taken Comments Blood Pressure 151/102 01/07/2023 10:30 AM EDT Pulse 89 01/07/2023 8:40 AM EDT Temperature 36.3 ??C (97.3 ??F) 01/07/2023 8:40 AM ED T Respiratory Rate 18 01/07/2023 10:30 AM EDT Oxygen Saturation 95% 01/07/2023 10:30 AM EDT Inhaled Oxygen Concentration - - Weight - - Height - - Body Mass Index - - documented in this encounter Discharge Instructions * Discharge Instructions* Wilder Dickey LPN - 01/07/2023 8:29 AM EDT [facility] Vascular and Interventional Radiology Biopsy Discharge Instructions Liver biopsy: call your doctor immediately if you develop a sudden onset of weakness, increased pain or swelling at the biopsy site or heavy bleeding at the biopsy site. Activity And Diet: Go home and rest quietly for the remainder of the day. You may resume your normal activities tomorrow. Resume your usual diet after the procedure. Do not drive, sign any important/legal documents, or make any important decisions for 24 hours following sedation medications. When to call your healthcare provider: If you see any redness, swelling or drainage at the biopsy site. If you develop chills. If you have a fever greater than or equal to 101 degrees Fahrenheit. If you develop pain around the biopsy site. Bandage: Check the dressing/bandaid throughout the day for an increase in drainage. Keep the biopsy site dryfor 24 hours. Replace the bandaid as needed. You may shower 24 hours after the biopsy. Medication: DO NOT take aspirin-containing products, ibuprofen, or blood-thinning medication for the next 24 hours unless your clinician says you may do so. Generally you may use acetaminophen as needed for discomfort unless you have liver disease and are instructed not to take acetaminophen. Biopsy Results The results of your biopsy should be available within 5 business days and will be reported to you by your primary healthcare risk control consultant or the clinician who ordered the biopsy. Please do not call us for results as we will not have them. If you have not been contacted by your clinician within 5 business days you should call that officefor further information. When to call the Interventional Radiology Department: Please call with any questions or concerns. If it is during regular office hours, please call [phone]. If it is after regular office hours, or on weekends or holidays, please call [phone] and ask to speak to the Animal Handler supervisor fabrication department for Interventional Radiology. You have received medication during your procedure to help lessen anxiety and keep you comfortable.These medications affect judgement and reaction time. We [...] meals). 02/27/2024 documented as of this encounter Progress Notes * Marlena Kenney RN - 01/02/2023 5:07 PM EDT [facility]GIO NURSING DATABASE Name: Charles Nick Date of : 1975 AGE: 47 y.o. [address]: [address] [place] [address] (home) [phone] (work) Mobile: Telephone Information: Referring Provider: Eugenia Barrera REASON FOR VISIT: Order Questions Answers Where will study be performed? [facility] Radiology [120] Reason for exam and clinical history: suspected CHAN, F3 on fibroscan, assess for DILI vs CHAN Is the patient on anticoagulant / antiplatelet therapy ? No Planned procedure: Nonfocal parenchymal liver biopsy Labs to be performed day of procedure: No labs Sedation: Moderate (Conscious sedation) Prophylactic antibiotic : None Contrast: No contrast Additional medications for procedure: Lidocaine Position: Supine Consent: Pending Medications to discontinue (and days held): None Case Urgency:: G2- Elective Outpatient intervention within 8-14 days Allergies Allergen Reactions ??? Penicillins Rash Pertinent PMH: Patient Active Problem List Diagnosis Code ??? CKD (chronic kidney disease) stage 3, GFR 30-59 ml/min N18.30 ??? Obesity E66.9 Date/Procedure Meds Given/Comments 01/07/23 Liver Bx Fentanyl 100 mcg IV, Versed 2 mg IV; tolerated procedure well. 0810 to procedure room IR 1 via stretcher. Remains on stretcher supine. All monitors, O2, safety strap in place. Meds per protocol. Laboratory Results: Lab Results Component Value Date INR 1.1 12/25/2022 Lab Results Component Value Date CREATININE 0.96 12/25/2022 Lab Results Component Value Date K 3.7 12/25/2022 Lab Results Component Value Date PLATELET 206 12/12/2021 documented in this encounter H&P Notes * Francisca Estrada MD - 01/07/2023 8:02 AM EDT INTERVENTIONAL RADIOLOGY FOCUSED H&P: Procedure: Non-focal liver parenchymal liver biopsy Update to H&P: The patient's history and physical exam have been reviewed and completed. There has been NO interval change from that of the pre-procedural note done within the last 30 days. There is NO change in the procedural plan. Physical Exam: Cardiovascular: Regular, Normal Pulmonary: Breath sounds clear to auscultation Meds: Current medications reviewed. No medications held. [...] Yes Allergies reviewed: Yes Source Note - Tejas Henao PA - 12/26/2022 10:10 AM [...] 12/26/2022 JULIO Vega documented in this encounter Miscellaneous Notes * Brief Op Note - Juan Wright MD - 01/07/2023 8:29 AM EDT INTERVENTIONAL RADIOLOGY BRIEF PROCEDURE NOTE Operators: Juan Wright MD, Attending, Dax Arroyo MD Resident Patient Name: Charles Nick 01/07/23 Post-operative diagnosis/Indication: Abnormal LFTS Procedure Performed: US Guided liver biopsy Findings of the procedure: echogenic liver EBL: <5 mL Complications: No immediate Plan/Disposition: Recovery in interventional radiology postprocedure unit, then DC to home when discharge criteria met. FULL PROCEDURE NOTE TO FOLLOW IN IMAGE REPORT documented in this encounter Plan of Treatment Upcoming Encounters Date Type Department Care Team (Late st Contact Info) Description 05/21/2024 9:00 AM EDT [place] [address] Nighat López MD [facility] [place] [address] 05/28/2024 8:00 AM EDT Office Visit Hematology/Oncology at [address] [phone] Rodriguez Fowler MD [facility] [place] [address] Sherry Cedillo APRN [address] [place] [address] DR HEMATOLOGY AND ONCOLOGY [place], [place] [phone] 05/28/2024 8:30 AM EDT Infusion Hematology Oncology at [address] [phone] 05/28/2024 9:30 AM EDT Clinical Support Hematology/Oncology at [address] [phone] [address] [facility] [place] [address] documented as of this encounter Procedures Procedure Name Priority Date/Time Associated Diagnosis Comments IR BIOPSY LIVER PERCUTANEOUS - NON-FOCAL PARENCHYMA Routine 01/07/2023 8:34 AM EDT CHAN (nonalcoholic steatohepatitis) SURGICAL PATHOLOGY REPORT Routine 01/07/2023 8:32 AM EDT POCT GLUCOSE Routine 01/07/2023 7:36 AM EDT SPECIMEN TO PATHOLOGY Routine 01/07/2023 7:22 AM EDT documented in this encounter Results [...] with the resident for the entire procedure. Eugenia Barrera PLASTICS TECHNICIAN IMG IR ORDERABLES * Surgical Pathology Report (01/07/2023 8:32 AM EDT) Final Diagnosis [id number] ? Location: [facility] The signing pathologist has (i) examined the relevant preparation(s) for the specimen(s) and (ii) rendered or confirmed the diagnosis(es). . ?Surgical Pathology DIAGNOSIS A - Percutaneous Liver Biopsy, biopsy (Multiple): - Steatosis with steatohepatitis, stage 2/4 (sn). Note: ??RAMY total score* = 5 - Steatosis ?= 2 - Lobular Inflammation = 2 - Ballooning ? = 1 Fibrosis score ?? = 2 *(RAMY >/= 4 with at least 1 in each component represents steatohepatitis) ?RAMY SCORING Steatosis ? 0 ??<5% ?1 ??5-33% ?2 ??34-66% ?3 ??67-100% Lobular Inflammation ??0 ??no foci ?1 ??< 2 foci per 200x field ?2 ??2-4 foci per 200x field ?3 ??> 4 foci per 200 x field Ballooning ?0 ??None ?1 ??Rare or diagnostically borderline ?2 ??Many or prominent ballooned hepatocytes ?FIBROSIS SCORE None ?0 Mild zone 3 perisinusoidal ?1a Moderate zone 3 perisinusoidal ?1b Portal/periportal only ?1c Portal, periportal and perisinusoidal ?? 2 Bridging ?3 Cirrhosis ? 4 Electronically signed by: ?Luis Atkinson MD Verified: ??01/08/2023 16:19 ??Pathologist Performed at: ??-[facility] Dept. of Pathology, [place] [address] Fleet Dispatch Manager: Lee Sutton MD, FCAP, ??CLIA Certificate: [id number] ADDITIONAL STUDIES Whole slide scan: A1, trichrome SPECIMEN(S) SUBMITTED A - Percutaneous Liver Biopsy, biopsy (Multiple) CLINICAL INFORMATION Suspected CHAN, F3 on fibroscan, assess for DILI vs CHAN SPECIMEN PROCESSING A - Labeled/Fixative: Percutaneous liver biopsy, formalin. Quantity/Size: Multiple, ranging from 0.2 x 0.1 cm . SPECIMEN PROCESSING Tissue Description: Palumbo-pink needle core biopsies. Sections/Processi ng: Entirely submitted in 1 cassette labeled A1. ??sns 01/08/2023 4:19 PM EDT [facility] LIVER STRUCTURE / Unknown 01/07/2023 8:32 AM EDT 01/07/2023 8:32 AM EDT Juan Wright MD PATHOLOGY/CYTOLOGY [place] Performing Organization Address City/[facility]/ZIP Co de Phone Number [facility] [place] [address] [facility] [place] [address] * POCT Glucose (01/07/2023 7:36 AM EDT) Glucose, POC 139 65 - 199 mg/dL [facility] Comment: Supplemental ranges: <140 mg/dL before meals <180 mg/dL all other times of the day Blood 01/07/2023 7:36 AM EDT 01/07/2023 7:36 AM EDT Eugenia Barrera APRN POINT OF CARE TEST ORDERABLES Performing Organization Address City/[facility]/ZIP Co de Phone Number [facility] [place] [address] * Specimen to Pathology (01/07/2023 7:22 AM EDT) AP Specimen 01/07/2023 7:22 AM EDT 01/07/2023 7:22 AM EDT Narrative [facility] - 01/07/2023 7:22 AM EDT Specimen requisition ordered. ??Separate Pathology report to follow Juan Wright MD PATHOLOGY/CYTOLOGY Yoel GRANGER Performing Organization Address [facility]/ZIP Co de Phone Number [facility] [place] [address] documented in this encounter Visit Diagnoses Diagnosis CHAN (nonalcoholic steatohepatitis) Other chronic nonalcoholic liver disease documented in this encounter Administered Medications Inactive Administered Medications - up to 3 most recent administrations Medication Order MAR Action Action Date Dose Rate Site fentaNYL (pf) (50 mcg/mL) multi-dose injection 25-50 mcg 25-50 mcg, Intravenous, EVERY 3 MIN PRN, Starting on Tu01/07/23 at 0729, Until Tu01/07/23 at 1045, Pain, per unit protocol, For use in [...] mcg/dose, 250 mcg/hour, Angio/IR (Intra-Procedure), Routine Given 01/07/2023 8:21 AM EDT 50 mcg Given 01/07/2023 8:16 AM EDT 50 mcg lidocaine (Xylocaine) 1% (10 mg/mL) injection 10 mg 10 mg, Subcutaneous, ONCE, 1 dose, On Fri01/07/23 at 0745, For use in Interventional Radiology (IR) only for procedure with direct provider supervision and verbal order., Angio/IR (Intra-Procedure), Routine Given 01/07/2023 8:24 AM EDT 10 mg midazolam (pf) (Versed) (1 mg/mL) multi-dose injection 0.5-1 mg 0.5-1 mg, Intravenous, EVERY 3 MIN PRN, Starting on Fri01/07/23 at 0729, Until Fri01/07/23 at 1045, Sedation, For use in Interventional Radiology (IR) [...] mg/dose, 5 mg/hour., Angio/IR (Intra-Procedure), Routine Given 01/07/2023 8:21 AM EDT 1 mg Given 01/07/2023 8:16 AM EDT 1 mg documented in this encounter Care Teams Weigher Operator Relationship Specialty Start Date End Date Olga Hoffman APRN [address] [place] [address] PCP - General Family Medicine 10/30/22 documented as of this encounter
--- OUTSIDE RECORDS SUMMARY | 2024-05-21 01:13 | XMS_ITS | Encounter Summary ---
[place] [address] Care Team Providers Care Engraver Optical Frames Name Role Phone Olga Hoffman APRN Primary Care Provider [phone] Reason for Referral * Consultation (Routine) - Closed Specialty Diagnoses / Procedures Referred By Janak t Referred To Contact Hematology and Oncology Diagnoses Polycythemia Olga Hoffman APRN [address] [place] [address] [facility] [address] [place] [address] Referral ID Status Reason Start Date Expiration Date V isits Requested Visits Authorized [id number] Closed Consult, Test & Treat PCP Updated and/or Approved 11/20/2022 11/20/2023 6 6 Encounter Details Date Type Department Care Team (Late st Contact Info) Description 11/20/2022 Transcribe Orders eDH Incoming Referrals [phone] Olga Hoffman APRN [address] [place] [address] Polycythemia Social History Tobacco Use Types Packs/Day Years [...] 9:00 AM EDT Office [place] [address] Nighat López MD [facility] [place] [address] 05/28/2024 8:00 AM EDT Office Visit Hematology/Oncology at [address] [phone] Rodriguez Fowler MD [facility] [place] [address] Sherry Cedillo APRN [address] [place] [address] DR HEMATOLOGY AND ONCOLOGY [place], [place] [phone] 05/28/2024 8:30 AM EDT Infusion Hematology Oncology at [address] [phone] 05/28/2024 9:30 AM EDT Clinical Support Hematology/Oncology at [address] [phone] Leah Rose, ARASH [facility] [place] [address] Scheduled Referrals Name Type Priority Associated Diagnoses Order Schedule Referral to Hematology and Oncology Outpatient Referral Routine Polycythemia Ordered: 11/20/2022 documented as of this encounter Visit Diagnoses Diagnosis Polycythemia Polycythemia vera documented in this encounter Care Teams Engraver Optical Frames Relationship Specialty Start Date End Date Olga Hoffman APRN [address] [place] [address] PCP - General Family Medicine 10/30/22 documented as of this encounter
--- OUTSIDE RECORDS SUMMARY | 2024-05-21 01:13 | XMS_ITS | Encounter Summary ---
Author Organization [facility] [place] [address] Care Team Providers Care Sales Support Representative Name Role Phone Dariana Méndez MD Primary Care Provider [phone] Reason for Visit * Reason Comments Medication Refill Encounter Details Date Type Department Care Team (Late Contact Info) Description 12/15/2017 Refill [place] [address] [facility] [place] [address] Proteinuria; Obesity; Hypertension secondary to other renal disorders Social History Tobacco Use Types Packs/Day Years Used Date Smoking Tobacco: Never Smokeless Tobacco: Never Sex and Gender Information Value Date Recorded Sex Assigned at Not on file Gender Identity Not on file Sexual Orientation Not on file documented as of this encounter Plan of Treatment Upcoming Encounters Date Type Department Care Team (Late Contact Info) Description 05/21/2024 9:00 AM EDT [place] [address]ópez MD [facility] [place] [address] 05/28/2024 8:00 AM EDT Office Visit Hematology/Oncology at [address] [phone] [facility] [place] [address] Sherry Cedillo APRN [address] [place] [address] DR HEMATOLOGY AND ONCOLOGY [place], [place] [address] 05/28/2024 8:30 AM EDT Infusion Hematology Oncology at [address] [phone] 05/28/2024 9:30 AM EDT Clinical Support Hematology/Oncology at [address] [phone] [facility] DR [place] [address] documented as of this encounter Visit Diagnoses Diagnosis Proteinuria Obesity Obesity, unspecified Hypertension secondary to other renal disorders documented in this encounter Care Teams Sales Support Representative Relationship Specialty Start Date End Date Dariana Méndez MD [address] [place] [address] PCP - General Family Medicine 07/16/16 10/29/22 documented as of this encounter
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
--- OUTSIDE RECORDS SUMMARY | 2024-05-21 01:13 | XMS_ITS | Encounter Summary ---
Author Organization [facility] [place] [address] Care Team Providers Care Soft Shoe Dancer Name Role Phone Dariana Méndez MD Primary Care Provider [phone] Encounter Details Date Type Department Care Team (Latest Contact Info) Description 02/15/2021 10:00 AM EDT TH Visit (TeleHealth) [place] [address] Carlos Dawson MD [facility] [place] [address] Type 2 diabetes mellitus with hyperglycemia, without long-term current use of insulin; Hypertension, unspecified type; Proteinuria, unspecified type; Obesity, unspecified classification, unspecified [...] as of this encounter Progress Notes * Carlos Dawson MD - 02/15/2021 10:00 AM EDT Images from the original note were not included. We are seeing this 45 year old man for consultation about Type 2 diabetes as part of the [facility] outreach program From Intake: Diagnosis 5-6 years ago, was gaining weight By routine testing Has had teeth removed, has top dentures Regimen Oral medications Metformin 1000 bid Home glucose monitoring: Recommended frequency 2x a day Results 200's Episodes of hypoglycemia Warning signs: No episodes Frequency of self treated episodes none Frequency of episodes needing assistance none Dietary plan: 24 hour diet recall: Breakast Skip, normally oatmeal at [place] AM snack Lunch Tuna sandwich from vending Afternoon snack Dinner Spaghetti bolognase After dinner snack Exercise routine Preferred exercise biking Frequency None- busy with work and 4 children Diabetes complications review eyes No retinopathy feet Symptoms Numbness and sharp pains at night , tolerable due to gabapentim Foot ulcers: prior foot ulcer where he picked at a callus, healed NO Prior amputations Overall risk of foot problems High Uses prescription NO Inserts NO Shoes 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, recovered, and has microalbuminuria And chronic Na retention Autonomic neuropathies : NO Early satiety /nausea (gastroparesis) NO Problems emptying bladder YES- erectile dysfunction NO Unable to detect low sugars NO Persistent rapid heartrate tachycardia cardiac NO chest pain on exertion MILD shortness of breath on 1 flight of stairs NO Shortness of breath at rest NO history of Cardiac stent Cardiac bypass surgery Congestive heart failure Peripheral vascular disease: Neck arteries (carotids) Leg arterieis Stroke Diabetes preventative services last eye exam: 2 mo ago last urine protein measurement Within the year last kidney function test (creatinine) 2020 last cholesterol Panel: 2020 regular fibrous 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 prevnar (pneumonia shot update) ? Kidney protection: Uses lisinopril or losartan type medications: yes Blood pressure- said to be controlled Heart protection: Uses low dose aspirin no Uses cholesterol lowering medication ( statin) no PMH 1) DM2 2) HBP 3) microalbuminuria 4) neuropathy 5) history of membranous glomerulonephritis, resolved Meds Metformin 1000 bid Losartan 50 Furosemide 20 mg bid Sildenafil as needed Allergies- not mentioned ROS + edentulous, weight loss, edema - Chest pain, plummer, renal stones Database: 1) DM2 - Mr Nick has very poorly controlled diabetes. This is due in part to poor dietary habits but mainly due to distraction with work and home life. His diabetes distress scores are interesting in that he knows he could do better and finds taking meds onerous. I recommended that we add glimeperide 4 mg bid to get his HA1c to come downto under 9 % and then , if he can afford it, add trulicity or ozempic - weekly injections which would help with weight loss and renal protection. The goal is to get his HA1c below 9 % to improve his health status and neuropathy pain, then below 8 % to minimize progression of his renal disease and neuropathy. I asked him to test before and after one meal a day so we can better identify if the problems are pre or postprandial. I would avoid insulin due to risk of weight gain and burdensome complicated regimen Recommendations/plan 1) add glimperide 4 mg bid 2) test before and after one meal a day and keep records 3) try to use foods prepared from home as much as possible 4) return in 1 month to PCP or me to assess progress (looking for premeal under 150 and postmeal under 220) 5) if not at those targets, look into adding Trulicity or Ozempic weekly; if unaffordable consider Farxiga or Jardiance (not Invokana due to amputation risk) documented in this encounter Plan of Treatment Upcoming Encounters Date Type Department Care Team (Late st Contact Info) Description 05/21/2024 9:00 AM EDT Office [place] [address] Nighat López MD [facility] [place] [address] 05/28/2024 8:00 AM EDT Office Visit Hematology/Oncology at [address] [phone] Rodriguez Fowler MD [facility] [place] [address] Sherry Cedillo APRN [address] [place] [address] DR HEMATOLOGY AND ONCOLOGY [place], [place] [phone] 05/28/2024 8:30 AM EDT Infusion Hematology Oncology at [address] [phone] 05/28/2024 9:30 AM EDT Clinical Support Hematology/Oncology at [address] [phone] [facility] DR HEMATOLOGY [place] [address] documented as of this encounter Visit Diagnoses Diagnosis Type 2 diabetes mellitus with hyperglycemia, without long-term current use of insulin Hypertension, unspecified type Proteinuria, unspecified type Obesity, unspecified classification, unspecified obesity type, unspecified whether serious comorbidity present Hypertension secondary to other renal disorders documented in this encounter Care Teams Soft Shoe Dancer Relationship Specialty Start Date End Date Dariana Méndez MD [address] [place] [phone] PCP - General Family Medicine 07/16/16 10/29/22 documented as of this encounter
--- OUTSIDE RECORDS SUMMARY | 2024-05-21 01:13 | XMS_ITS | Encounter Summary ---
Author Organization [facility] [place] [address] Care Team Providers Care Literary Writer Name Role Phone Dariana Méndez MD Primary Care Provider [phone] Encounter Details Date Type Department Care Team (Latest Contact Info) Description 12/22/2018 10:00 AM EDT Office Visit Ne[place] [address] Faye Maxwell MD [facility] [place] [address] CKD (chronic kidney disease) stage 3, GFR 30-59 ml/min; Type 2 diabetes mellitus with microalbuminuria, unspecified whether nursing home insulin use Social History Tobacco Use Types Packs/Day Years Used Date Smoking Tobacco: Never Smokeless Tobacco: Never Sex and Gender Information Value Date Recorded Sex Assigned at Not on file Gender Identity Not on file Sexual Orientation Not on file documented as of this encounter Last Filed Vital Signs Vital Sign Reading Time Taken Comments Blood Pressure 148/98 12/22/2018 9:37 AM EDT Pulse 74 12/22/2018 9:37 AM EDT Temperature - - Respiratory Rate - - Oxygen Saturation 96% 12/22/2018 9:37 AM EDT Inhaled Oxygen Concentration - - Weight 139.5 kg (307 lb 9.6 oz) 12/22/2018 9:37 AM EDT Height 188 cm (6' 2) 12/22/2018 9:37 AM EDT Body Mass Index 39.49 12/22/2018 9:37 AM EDT documented in this encounter Progress Notes * Faye Maxwell MD - 12/22/2018 10:00 AM EDT I had the pleasure of seeing your patient Charles Jadein the Renal and Hypertension clinic Charles Jade 1975 [id number] Chief Complaint: This is a followup visit to the Renal and Hypertension clinic for this 41 y.o. year old man Mr Jade stopped his medications including insulin (continued metformin) for 3 weeks while he was in [place] with his family following the of his father. He returned yesterday and has resumed taking his medications. He has noticed some increased edema. Over the past year he has lost greater than 30 pounds with dietary restriction. Continues to use CPAP. Denies dyspnea, chest pain. No foamyurine, hematuria, or LUTs. No new medications. No NSAIDs ?? 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 Underwent spontaneous remission without imunotherapy. Repeat biopsy in 2007 at [facility]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Remians in remission. ?? Morbid obesity. ?? Hypertension ?? DMII insulin-dependent. Currently uncontrolled. No identified complications ?? Obstructive sleep apnea: Uses CPAP with improvement tin daytime alertness and mood ?? 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 . Mother Habits: Non smoker. Patient Active Problem List Diagnosis Code ??? CKD (chronic kidney disease) stage 3, GFR 30-59 ml/min N18.3 ??? Obesity E66.9 Medications Current Outpatient Medications on File Prior to Visit Medication Sig Dispense Refill ??? INSULIN DETEMIR (LEVEMIR FLEXPEN SUBQ) Inject subcutaneously. ??? furosemide (LASIX) 40 mg Tablet Take 1 tablet by mouth 2 times daily. 180 tablet PRN ??? metFORMIN (GLUCOPHAGE) 1,000 mg Tablet Take 1,000 mg by mouth 2 times daily (with meals). ??? lisinopril (PRINIVIL;ZESTRIL) 40 mg Tablet Take 1 tablet by mouth daily. 90 tablet 3 No current facility-administered medications on file prior to visit. Non-steroidal anti-inflammatory medications: None Past Medical History, Family and Social History Reviewed in CIS and/or paper chart Current Diet: regular Current excercise: none Review of Systems: Unchanged since visit except as noted above Physical Exam Charles Jade is a morbidly obese male who appears well Blood pressure (!) 148/98, pulse 74, height 188 cm (6' 2), weight (!) 139.5 kg (307 lb 9.6 oz), SpO2 96 %. Vitals: 12/22/18 0937 BP: (!) 148/98 BP Location (NBP): Left arm Patient Position: Sitting Pulse: 74 SpO2: 96% Weight: (!) 139.5 kg (307 lb 9.6 oz) Height: 188 cm (6' 2) The oropharynx and neck are unremarkable There is 1+ indurated edema at the anklesand no sacral edema. There is bilaterla gynecomastia. The chest is clear to auscultation bilaterally. Three is no JVD The heart sound are S1 plus S2 with no rubs, murmurs or gallops. The abdomen is obese, soft, non tender Facies symmetrical. Speech and gait normal. Mood approprite Urinalysis: Dipstick negative for blood, 1+ protein, 1000 glucose Protein quantitation pending Urine microscopy: no cells casts or crystals Laboratory and other data: Reviewed see eDH. Notable for: Random glucose 193 mg/dl , Mild polycythemia c/w JOSE, otherwise as above. Results for CHARLES JADE ( ) as of 12/22/2018 13:58 Ref. Range 08/16/2016 14:14 08/16/2016 15:30 11/14/2017 15:39 12/22/2018 09:49 12/22/2018 10:00 Sodium Latest Ref Range: 135 - 145 mmol/L 139 135 134 (L) Potassium Latest Ref Range: 3.5 - 5.0 mmol/L 4.3 4.2 4.3 Chloride Latest Ref Range: 98 - 107 mmol/L 97 (L) 93 (L) 101 CO2 Latest Ref Range: 22 - 31 mmol/L 30 25 22 Anion Gap Latest Ref Range: 5 - 15 mmol/L 12 17 (H) 11 BUN Latest Ref Range: 10 - 20 mg/dL 11 11 8 (L) Creatinine Latest Ref Range: 0.80 - 1.50 mg/dL 1.21 1.01 0.85 eGFR Latest Ref Range: >=60 mL/min/1.73 m?? >60 >60 106 eGFR Latest Ref Range: >=60 mL/min/1.73 m?? 123 Glucose Lvl Latest Ref Range: 65 - 199 mg/dL 183 313 (H) 409 (H) Calcium Latest Ref Range: 8.5 - 10.5 mg/dL 9.0 8.9 8.9 Uric Acid Latest Ref Range: 3.5 - 8.5 mg/dL 5.0 4.0 Albumin Latest Ref Range: 3.2 - 5.2 gm/dL 3.9 3.7 U Protein Ran Latest Ref Range: 0 - 12 mg/dL 27 (H) 19 (H) Results for CHARLES JADE ( ) as of 12/22/2018 13:58 Ref. Range 07/13/2015 15:17 08/16/2016 15:30 11/14/2017 16:00 12/22/2018 10:00 12/22/2018 10:00 Alb/Cr Ratio, Random Latest Ref Range: 0 - 29 mcg/mg Cr 54 (H) 193 (H) Prot/Cre Ratio Latest Units: ratio 0.8 0.2 0.4 U Albumin Conc, Random Latest Units: mg/L 11.9 84.8 U Protein Ran Latest Ref Range: 0 - 12 mg/dL 135 (H) 27 (H) 19 (H) U Creatinine Latest Units: mg/dL 163 137 22 44 44 Radiology studies reviewed: None this visit Diagnosis, Medical decision making and Recommendations: 1. Idiopathic membranous glomerulopathy in remission. 2. Probable early diabetic nephropathy 3. Medication nonadherence, discussed importance of glycemic and blood pressure control 4. Obesity, JOSE, DMII. Has succeeded in losing weight currently about 30 pounds. Plans to continue this regimen. 5. Obstructive sleep apnea well controlled 6. Followup visit: 3 months with labs. Labs ordered via eDH Thank you for involving me in the care of this very pleasant and interestingpatient CC: Dariana Méndez MD @[email or web address]@ documented in this encounter Plan of Treatment Upcoming Encounters Date Type Department Care Team (Late st Contact Info) Description 05/21/2024 9:00 AM EDT Office [place] [address] Nighat López MD [facility] [place] [address] 05/28/2024 8:00 AM EDT Office Visit Hematology/Oncology at [address] [phone] Rodriguez Fowler MD [facility] [place] [address] Sherry Cedillo APRN [address] [place] [address] DR [place] [address] 05/28/2024 8:30 AM EDT Infusion Hematology Oncology at [address] [phone] 05/28/2024 9:30 AM EDT Clinical Support Hematology/Oncology at [address] [phone] [facility] [place] [address] documented as of this encounter Procedures Procedure Name Priority Date/Time Associated Diagnosis Comments PROTEIN/CREATININE RATIO, URINE Routine 12/22/2018 10:00 AM EDT CKD (chronic kidney disease) stage 3, GFR 30-59 ml/min U ALBUMIN/CRE RATIO Routine 12/22/2018 1 0:00 AM EDT CKD (chronic kidney disease) stage 3, GFR 30-59 ml/min documented in this encounter Results * (ABNORMAL) U Albumin/Cre Ratio (12/22/2018 10:00 AM EDT) Albumin / Creatinin Ratio, Urine 193(H) 0 - 29 mcg/mg [facility] Comment: Reference Ranges: <30 mcg/mg: Normal 30-300 mcg/mg: Moderately increased albuminuria.* >300 mcg/mg: Severely increased albuminuria. * ACEI or ARB recommended if diabetic; suggested if BP>130/80 without diabetes ACEI or ARB strongly recommended if diabetic; recommended if BP>130/80 without diabetes Two of three specimens collected within a 3 to 6 month period should be abnormal before considering a patient to have albuminuria. Transient causes: exercise, fever, infection, CHF, marked hyperglycemia or hypertension. Persistent albuminuria indicates CKD and is an independent risk factor for ASCVD. ADA Standards of Medical Care in Diabetes-2016; KDIGO: Kidney International Supplements (2012) 2, 357? 362 Albumin, Urine 84.8 mg/L [facility] Creatinine, Urine 44 mg/dL [facility] Urine specimen (specimen) 12/22/2018 10:00 AM EDT 12/22/2018 12:17 PM EDT Narrative Resulting Agency Comment Spec In Lab Faye Maxwell MD URINE ORDERABLES Performing Organization Address City/[facility]/ZIP Co de Phone Number [facility] [place] [address] * (ABNORMAL) Protein/Creatinine Ratio, urine (12/22/2018 10:00 AM EDT) Creatinine, Urine 44 mg/dL [facility] Protein, Urine 19(H) 0 - 12 mg/dL [facility] Protein / Creatinine Ratio, Urine 0.4 ratio [facility] Urine specimen (specimen) 12/22/2018 10:00 AM EDT 12/22/2018 12:17 PM EDT Narrative Resulting Agency Comment Spec In Lab Faye Maxwell MD URINE ORDERABLES [facility] [place] [address] documented in this encounter Visit Diagnoses Diagnosis CKD (chronic kidney disease) stage 3, GFR 30-59 ml/min Chronic kidney disease, Stage III (moderate) Type 2 diabetes mellitus with microalbuminuria, unspecified whether oil heaterman insulin use documented in this encounter Care Teams Literary Writer Relationship Specialty Start Date End Date Dariana Méndez MD [address] [place] [address] PCP - General Family Medicine 07/16/16 10/29/22 documented as of this encounter
--- OUTSIDE RECORDS SUMMARY | 2024-05-21 01:13 | XMS_ITS | Encounter Summary ---
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; Obesity due to excess calories with serious comorbidity, unspecified classification; JOSE (obstructive sleep apnea) Social History Tobacco Use Types Packs/Day Years [...] Sign Reading Time Taken Comments Blood Pressure 146/98 01/06/2023 8:37 AM EDT Pulse 93 01/06/2023 8:37 AM EDT Temperature - - Respiratory Rate - - Oxygen Saturation - - Inhaled Oxygen Concentration - - Weight 124.3 kg (274 lb) 01/06/2023 8:37 AM EDT Height 188 cm (6' 2) 01/06/2023 8:37 AM EDT Body Mass Index 35.18 01/06/2023 8:37 AM EDT documented in this encounter Progress Notes * Faye Maxwell MD - 01/06/2023 9:00 AM EDT I had the pleasure of seeing your patient Charles Nickin the Renal and Hypertension clinic Charles Nick 1975 [id number] Chief Complaint: This is a followup visit to the Renal and Hypertension clinic for this 41 y.o. year old man for follow up of membranous glomerulopathy in remission Mr Nick recently passed a first kidney stone. Retrograde pyelogram at [facility] showed no residual stone. CT showed normal kidneys and fatty liver. He underwent liver biopsy confirming the diagnosis. He is working on losing weight. Was unable to tolerate semaglutide due to nausea and vomiting. Recent glycemic control is good, recent Hb A1C 6%. Home systolic blood pressure is in the range 120 mmHg He is in a stable relationship. His partner has children similar age to his. . He has lost considerable weight, but has recently regained some. He denies edema, foamy urine, hematuria Continues to use CPAP. Denies dyspnea, chest pain. . No new medications. No NSAIDs ?? 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 Underwent spontaneous remission without imunotherapy. Repeat biopsy in 2007 at [facility]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. ?? Obesity. ?? Hypertension, well controlled ?? DMII insulin-dependent. Variable control - states improved recently.. No evidence diabetic nephropathy. Neuropathy feet and hands without ulceration, Biltaeral cataracts, no retinopathy. identified complications ?? Obstructive sleep apnea: Uses CPAP with improvement tin daytime alertness and mood ?? Gepatic steatosis ?? 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 3 children. Father . Mother Habits: Non smoker. Patient Active Problem List Diagnosis Code ??? CKD (chronic kidney disease) stage 3, GFR 30-59 ml/min N18.30 ??? Obesity E66.9 Medications Current Outpatient Medications [...] as noted above Physical Exam Charles Nick appears well. Has lost weight since last visit There were no vitals taken for this visit. There were no vitals filed for this visit. The oropharynx and neck are unremarkable There is 1+ indurated edema at the anklesand no sacral edema. There is bilaterla gynecomastia. The chest is clear to auscultation bilaterally. Three is no JVD The heart sound are S1 plus S2 with no rubs, murmurs or gallops. The abdomen is obese, soft, non tender Bilateral LE stasis discoloration, no pitting edema Facies symmetrical. Speech and gait normal. Mood approprite Urinalysis: Dipstick negative for blood, 1+ protein, Urine microscopy: no cells casts or crystals Laboratory and other data: Latest Reference Range & Units Most Recent WBC 4.0 - 9.5 x10(3)/mcL 9.4 01/06/23 08:32 RBC 4.58 - 5.54 x10(6)/mcL 6.52 (H) 01/06/23 08:32 Hemoglobin 13.7 - 16.5 g/dL 16.2 01/06/23 08:32 Hematocrit 40.5 - 48.5 % 49.9 (H) 01/06/23 08:32 MCV 82.9 - 93.1 fL 76.5 (L) 01/06/23 08:32 MCH 27.5 - 32.1 pg 24.8 (L) 01/06/23 08:32 MCHC 32.0 - 35.7 g/dL 32.5 01/06/23 08:32 RDWSD 36.0 - 45.0 fL 40.7 01/06/23 08:32 RDWCV 11.4 - 13.8 % 15.5 (H) 01/06/23 08:32 Platelets 145 - 357 x10(3)/mcL 228 01/06/23 08:32 (H): Data is abnormally high (L): Data is abnormally low Latest Reference Range & Units Most Recent 12/25/22 11:50 01/06/23 08:32 01/06/23 09:00 01/07/23 07:36 Sodium 135 - 145 mmol/L 140 01/06/23 08:32 139 140 Potassium 3.5 - 5.0 mmol/L 4.4 01/06/23 08:32 3.7 4.4 Chloride 98 - 107 mmol/L 100 01/06/23 08:32 100 100 CO2 22 - 31 mmol/L 30 01/06/23 08:32 27 30 Anion Gap 5 - 15 mmol/L 10 01/06/23 08:32 12 10 BUN 10 - 20 mg/dL 10 01/06/23 08:32 8 (L) 10 Creatinine 0.80 - 1.50 mg/dL 1.03 01/06/23 08:32 0.96 1.03 Estimated GFR >=60 mL/min/1.73 m?? 90 01/06/23 08:32 98 90 eGFR >=60 mL/min/1.73 m?? 123 12/22/18 09:49 Calcium 8.5 - 10.5 mg/dL 9.3 01/06/23 08:32 8.8 9.3 Phosphorus 2.5 - 4.5 mg/dL 2.8 01/06/23 08:32 2.8 Uric Acid 3.5 - 8.5 mg/dL 6.7 01/06/23 08:32 6.7 Glucose Lvl 65 - 199 mg/dL 142 01/06/23 08:32 110 142 POC Glucose 65 - 199 mg/dL 139 01/07/23 07:36 139 Total Protein 6.1 - 8.0 g/dL 7.9 01/06/23 08:32 7.3 7.9 Albumin 3.2 - 5.2 g/dL 4.5 01/06/23 08:32 4.2 4.5 Total Bilirubin 0.2 - 1.3 mg/dL 0.5 01/06/23 08:32 0.4 0.5 Alk Phos 40 - 130 unit/L 90 01/06/23 08:32 81 90 AST 0 - 39 unit/L 17 01/06/23 08:32 19 17 ALT 0 - 55 unit/L 19 01/06/23 08:32 23 19 U Protein Ran 0 - 12 mg/dL 7 01/06/23 09:00 7 (L): Data is abnormally low Latest Reference Range & Units Most Recent 12/22/18 10:00 12/12/21 14:30 01/06/23 09:00 Alb/Cr Ratio, Random 0 - 29 mcg/mg Cr 169 (H) 12/12/21 14:30 193 (H) 169 (H) Prot/Cre Ratio ratio 0.1 01/06/23 09:00 0.4 0.1 U Albumin Conc, Random mg/L 108.1 12/12/21 14:30 84.8 108.1 U Protein Ran 0 - 12 mg/dL 7 01/06/23 09:00 19 (H) 7 U Creatinine mg/dL 48 01/06/23 09:00 44 44 64 48 (H): Data is abnormally high . Urinalysis 2M renal lab: Trace protein, no cells, casts, or crystals Radiology studies reviewed: None this visit Diagnosis, Medical decision making and Recommendations: 1. Idiopathic membranous glomerulopathy in remission. 2. Likely early diabetic nephropathy 3. Riscussed importance of glycemic and blood pressure control 4. Obesity, JOSE, DMII. Uunderstands importance of weight control 5. Obstructive sleep apnea on CPAP 6. Renal clinic follow up:1 year with labs. Labs ordered via eDH Thank you for involving me in the care of this very pleasant and interestingpatient CC: Olga Hoffman, MIXING AND DISPENSING SUPERVISOR [email or web address] documented in this encounter Plan of Treatment Upcoming Encounters Date Type Department Care Team (Late st Contact Info) Description 05/21/2024 9:00 AM EDT Office [place] [address] Nighat López MD [facility] DR [place] [address] 05/28/2024 8:00 AM EDT Office Visit Hematology/Oncology at [address] [phone] Rodriguez Fowler MD [facility] [place] [place] [address] Sherry Cedillo APRN [address] [place] [address] DR HEMATOLOGY AND ONCOLOGY [place], [place] [id number] 05/28/2024 8:30 AM EDT Infusion Hematology Oncology at [address] [phone] 05/28/2024 9:30 AM EDT Clinical Support Hematology/Oncology at [address] [phone] [address] [facility] DR HEMATOLOGY [place] [address] documented as of this encounter Procedures Procedure Name Priority Date/Time Associated Diagnosis Comments HC PROTEIN, QUANTITATIVE, URINE Routine 01/06/2023 9:00 AM EDT Type 2 diabetes mellitus with diabetic nephropathy, 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 Obesity due to excess calories with serious comorbidity, unspecified classification documented in this encounter Results * (ABNORMAL) Comprehensive metabolic panel (non-fasting) (01/24/2023 10:42 AM EDT) Glucose 106 65 - 199 mg/dL [facility] Comment:Diabetes: >=200 mg/d L plus symptoms Blood Urea Nitrogen 7(L) 10 - 20 mg/dL [facility] Creatinine 0.92 0.80 - 1.50 mg/dL [facility] Sodium 140 135 - 145 mmol/L [facility] Potassium 4.5 3.5 - 5.0 mmol/L [facility] Comment: Please note: ??Patients with WBC >100,000 may have falsely elevated Potassium levels. ??For accurate Potassium quantification in these patients send serum separator tube (gold top) for subsequent determinations. ??Contact the Clinical Chemistry Laboratory if there are any questions. Chloride 103 98 - 107 mmol/L [facility] Carbon Dioxide 28 22 - 31 mmol/L [facility] Anion Gap 9 5 - 15 mmol/L [facility] Calcium 9.2 8.5 - 10.5 mg/dL [facility] Protein, Total 7.2 6.1 - 8.0 g/dL [facility] Albumin 4.1 3.2 - 5.2 g/dL [facility] Aspartate Aminotransferase 18 0 - 39 unit/L [facility] Alanine Aminotransferase 21 0 - 55 unit/L [facility] Alkaline Phosphatase 81 40 - 130 unit/L [facility] Bilirubin, Total 0.4 0.2 - 1.3 mg/dL [facility] Est Glomerular Filtration Rate 103 >=60 mL/min/1. 73 m?? [facility] Comment: This patient's estimated GFR [...] In Lab Faye Maxwell MD CHEMISTRY ORDERABLES [facility] [place] [address] * Phosphorus (01/24/2023 10:42 AM EDT) Phosphorus 3.1 2.5 - 4.5 mg/dL [facility] Blood 01/24/2023 10:4 2 AM EDT 01/24/2023 10:51 AM EDT Narrative Resulting Agency Comment Spec In Lab Faye Maxwell MD CHEMISTRY ORDERABLES Performing Organization Address City/[facility]/ZIP Co de Phone Number [facility] [place] [address] * Uric acid (01/24/2023 10:42 AM EDT) Uric Acid 5.7 3.5 - 8.5 mg/dL [facility] Blood 01/24/2023 10:4 2 AM EDT 01/24/2023 10:51 AM EDT Narrative Resulting Agency Comment Spec In Lab Faye Maxwell MD CHEMISTRY ORDERABLES Performing Organization Address City/[facility] Co de Phone Number [facility] [place] [address] * PTH (01/24/2023 10:42 AM EDT) Parathyroid Hormone 60 15 - 65 pg/mL [facility] Blood 01/24/2023 10:4 2 AM EDT 01/24/2023 10:51 AM EDT Narrative Resulting Agency Comment Spec In Lab Faye Maxwell MD CHEMISTRY ORDERABLES Performing Organization Address City/[facility]/ZIP Co de Phone Number [facility] [place] [address] * Protein/Creatinine Ratio, urine (01/06/2023 9:00 AM EDT) Creatinine, Urine 48 mg/dL [facility] Protein, Urine 7 0 - 12 mg/dL [facility] Protein / Creatinine Ratio, Urine 0.1 ratio [facility] Urine 01/06/2023 9:00 AM EDT 01/06/2023 10:45 AM EDT Narrative Resulting Agency Comment Spec In Lab Faye Maxwell MD URINE ORDERABLES [facility] [place] [address] * Comprehensive metabolic panel (non-fasting) (01/06/2023 8:32 AM EDT) Glucose 142 65 - 199 mg/dL [facility] Comment:Diabetes: >=200 mg/d L plus symptoms Blood Urea Nitrogen 10 10 - 20 mg/dL [facility] Creatinine 1.03 0.80 - 1.50 mg/dL [facility] Sodium 140 135 - 145 mmol/L [facility] Potassium 4.4 3.5 - 5.0 mmol/L [facility] Comment: Please note: ??Patients with WBC >100,000 may have falsely elevated Potassium levels. ??For accurate Potassium quantification in these patients send serum separator tube (gold top) for subsequent determinations. ??Contact the Clinical Chemistry Laboratory if there are any questions. Chloride 100 98 - 107 mmol/L [facility] Carbon Dioxide 30 22 - 31 mmol/L [facility] Anion Gap 10 5 - 15 mmol/L [facility] Calcium 9.3 8.5 - 10.5 mg/dL [facility] Protein, Total 7.9 6.1 - 8.0 g/dL [facility] Albumin 4.5 3.2 - 5.2 g/dL [facility] Aspartate Aminotransferase 17 0 - 39 unit/L [facility] Alanine Aminotransferase 19 0 - 55 unit/L [facility] Alkaline Phosphatase 90 40 - 130 unit/L [facility] Bilirubin, Total 0.5 0.2 - 1.3 mg/dL [facility] Est Glomerular Filtration Rate 90 >=60 mL/min/1. 73 m?? [facility] Comment: This patient's estimated GFR [...] In Lab Faye Maxwell MD CHEMISTRY ORDERABLES [facility] [place] [address] * Phosphorus (01/06/2023 8:32 AM EDT) Phosphorus 2.8 2.5 - 4.5 mg/dL [facility] Blood 01/06/2023 8:32 AM EDT 01/06/2023 8:39 AM EDT Narrative Resulting Agency Comment Spec In Lab Faye Maxwell MD CHEMISTRY ORDERABLES Performing Organization Address City/[facility]/ZIP Co de Phone Number [facility] [place] [address] * Uric acid (01/06/2023 8:32 AM EDT) Uric Acid 6.7 3.5 - 8.5 mg/dL [facility] Blood 01/06/2023 8:32 AM EDT 01/06/2023 8:39 AM EDT Narrative Resulting Agency Comment Spec In Lab Faye Maxwell MD CHEMISTRY ORDERABLES Performing Organization Address City/[facility]/ZIP Co de Phone Number [facility] [place] [address] * (ABNORMAL) PTH (01/06/2023 8:32 AM EDT) Parathyroid Hormone 121(H) 15 - 65 pg/mL [facility] Blood 01/06/2023 8:32 AM EDT 01/06/2023 8:39 AM EDT Narrative Resulting Agency Comment Spec In Lab Faye Maxwell MD CHEMISTRY ORDERABLES [facility] [place] [address] documented in this encounter Visit Diagnoses Diagnosis Type 2 diabetes mellitus with diabetic nephropathy, 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
--- OUTSIDE RECORDS SUMMARY | 2024-05-21 01:13 | XMS_ITS | Encounter Summary ---
Author Organization [facility] [place] [address] Care Team Providers Care Document Review Specialist Name Role Phone Dariana Méndez MD Primary Care Provider [phone] Encounter Details Date Type Department Care Team (Latest Contact Info) Description 11/14/2017 3:30 PM EST Laboratory Appointment Lab [address] [place] [phone] Proteinuria; Obesity; Hypertension secondary to other renal [...] 9:00 AM EDT Office [place] [address] Nighat López MD [facility] [place] [address] 05/28/2024 8:00 AM EDT Office Visit Hematology/Oncology at [address] [phone] Rodriguez Fowler MD [facility] [place] [address] Sherry Cedillo, PROCUREMENT CLERK [address] [place] [address] DR HEMATOLOGY [place] [address] 05/28/2024 8:30 AM EDT Infusion Hematology Oncology at [address] [phone] 05/28/2024 9:30 AM EDT Clinical Support Hematology/Oncology at [address] [phone] Leah Rose, RD [facility] [place] [address] documented as of this encounter Procedures Procedure Name Priority Date/Time Associated Diagnosis Comments HEMOGRAM Routine 11/14/2017 3:39 PM EST Proteinuria Obesity Hypertension secondary to other renal disorders Morbid obesity due to excess calories DIFFERENTIAL, AUTOMATED Routine 11/14/2017 3:39 PM EST Proteinuria Obesity Hypertension secondary to other renal disorders Morbid obesity due to excess calories CBC (WITH DIFF) Routine 11/14/2017 3:39 PM EST Proteinuria Obesity Hypertension secondary to other renal disorders Morbid obesity due to excess calories URIC ACID Routine 11/14/2017 3:39 PM EST Proteinuria Obesity Hypertension secondary to other renal disorders Morbid obesity due to excess calories ALBUMIN LEVEL Routine 11/14/2017 3:39 PM EST Proteinuria Obesity Hypertension secondary to other renal disorders Morbid obesity due to excess calories BASIC METABOLIC PANEL Routine 11/14/2017 3:39 PM EST Proteinuria Obesity Hypertension secondary to other renal disorders Morbid obesity due to excess calories documented in this encounter Results * (ABNORMAL) Differential, Automated (11/14/2017 3:39 PM EST) Neutrophil % 62.6 % [facility] Neutrophil Absolute 6.63(H) 1.70 - 6.10 x10(3)/mc L [facility] Lymph % 30.3 % [facility] Lymphocytes Abs 3.2 0.9 - 3.2 x10(3)/ L [facility] Monocyte % 4.6 % [facility] Monocyte Abs 0.5 0.3 - 0.9 x10(3)/ L [facility] Eos % 1.4 % [facility] Eosinophils Abs 0.2 0.0 - 0.4 x10(3)/[facility] Basophil % 0.8 % [facility] Baso Absolute 0.1 0.0 - 0.1 x10(3)/[facility] Immature Gran % 0.30 % [facility] Comment: Immature granulocytes(IG's)percentage and absolute count will include metamyelocytes, myelocytes, and promyelocytes. Blood smears from CBCs yielding IG's will be scanned manually for concordance. If this scan disagrees with the automated IG or if promyelocytes are noted, a manual differential will be performed. Immature Gran Absolute 0.03 0.00 - 0.04 x10(3)/[facility] Blood specimen (specimen) 11/14/2017 3:39 PM EST 11/14/2017 3:56 PM EST Narrative Resulting Agency Comment Spec In Lab Faye Maxwell MD HEMATOLOGY ORDERABLE S Performing Organization Address City/State/[facility] Co de Phone Number [facility] [place] [address] * (ABNORMAL) Hemogram (11/14/2017 3:39 PM EST) White Blood Cell 10.6(H) 4.0 - 9.5 x10(3)/[facility] Red Blood Cell 6.35(H) 4.58 - 5.54 x10(6)/ L [facility] Hemoglobin 16.1 13.7 - 16.5 gm/dL [facility] Hematocrit 48.0 40.5 - 48.5 % [facility] Mean Cell Volume 75.6(L) 82.9 - 93.1 fL [facility] Mean Cell Hemoglobin 25.4(L) 27.5 - 32.1 pg [facility] Mean Cell Hemoglobin Concentration 33.5 32.0 - 35.7 gm/dL [facility] Platelet 219 145 - 357 x10(3)/mc L [facility] RDW Standard Deviation 38.8 36.0 - 45.0 fL [facility] RDW coefficient of variation 14.4(H) 11.4 - 13.8 % [facility] Mean Platelet Volume 11.0 7.6 - 12.9 fL [facility] NRBC% auto 0.0 % [facility] NRBC Absolute 0.000 0.000 - 0.000 x10(3)/mc L [facility] Blood specimen (specimen) 11/14/2017 3:39 PM EST 11/14/2017 3:56 PM EST Narrative Resulting Agency Comment Spec In Lab Faye Maxwell MD HEMATOLOGY ORDERABLE S Performing Organization Address [facility] Co de Phone Number [facility] [place] [address] * Uric acid (11/14/2017 3:39 PM EST) Uric Acid 5.0 3.5 - 8.5 mg/dL [facility] Blood specimen (specimen) 11/14/2017 3:39 PM EST 11/14/2017 3:56 PM EST Narrative Resulting Agency Comment Spec In Lab Faye Maxwell MD CHEMISTRY ORDERABLES Performing Organization Address [facility] Co de Phone Number [facility] [place] [address] * Albumin Level (11/14/2017 3:39 PM EST) Albumin 3.9 3.2 - 5.2 gm/dL [facility] Blood specimen (specimen) 11/14/2017 3:39 PM EST 11/14/2017 3:56 PM EST Narrative Resulting Agency Comment Spec In Lab Faye Maxwell MD CHEMISTRY ORDERABLES [facility] [place] [address] * (ABNORMAL) Basic Metabolic Panel (non-fasting) (11/14/2017 3:39 PM EST) Glucose 313(H) 65 - 199 mg/dL [facility] Comment:Diabetes: >=200 mg/d L plus symptoms Blood Urea Nitrogen 11 10 - 20 mg/dL [facility] Creatinine 1.01 0.80 - 1.50 mg/dL [facility] Sodium 135 135 - 145 mmol/L [facility] Potassium 4.2 3.5 - 5.0 mmol/L [facility] Comment: Please note: ??Patients with WBC >100,000 may have falsely elevated Potassium levels. ??For accurate Potassium quantification in these patients send serum separator tube (gold top) for subsequent determinations. ??Contact the Clinical Chemistry Laboratory if there are any questions. Chloride 93(L) 98 - 107 mmol/L [facility] Carbon Dioxide 25 22 - 31 mmol/L [facility] Anion Gap 17(H) 5 - 15 mmol/L [facility] Calcium 8.9 8.5 - 10.5 mg/dL [facility] Est Glomerular Filtration Rate >60 >=60 [facility] Comment: The reported eGFR should be multiplied by 1.2 for patients. The MDRD is not an appropriate measure of renal function for patients with body mass extremes or in patients with acute kidney failure. [email or web address]/DHnkdep [email or web address]/DHMCnkf Blood specimen (specimen) 11/14/2017 3:39 PM EST 11/14/2017 3:56 PM EST Narrative Resulting Agency Comment Spec In Lab Faye Maxwell MD CHEMISTRY ORDERABLES [facility] [place] [address] documented in this encounter Visit Diagnoses Diagnosis Proteinuria Obesity Obesity, unspecified Hypertension secondary to other renal disorders Morbid obesity due to excess calories documented in this encounter Care Teams Document Review Specialist Relationship Specialty Start Date End Date Dariana Méndez MD [address] [place] [address] PCP - General Family Medicine 07/16/16 10/29/22 documented as of this encounter
--- OUTSIDE RECORDS SUMMARY | 2024-05-21 01:13 | XMS_ITS | Encounter Summary ---
Author Organization [facility] [place] [address] Care Team Providers Care Insulator Helper Name Role Phone DaltonOlga choi Arabella RUST Primary Care Provider [phone] Encounter Details Date Type Department Care Team (Latest Contact Info) Description 12/24/2022 Travel Social History Tobacco Use Types Packs/Day [...] 9:00 AM EDT Office [place] [address] Nighat López MD [facility] [place] [address] 05/28/2024 8:00 AM EDT Office Visit Hematology/Oncology at [address] [phone] Rodriguez Fowler MD [facility] [place] [address] Sherry Cedillo APRN [address] [place] [address] DR HEMATOLOGY AND ONCOLOGY [place], [place] [id number] 05/28/2024 8:30 AM EDT Infusion Hematology Oncology at [address] [phone] 05/28/2024 9:30 AM EDT Clinical Support Hematology/Oncology at [address] [phone] Leah Rose, ARASH [facility] DR [place] [address] documented as of this encounter Visit Diagnoses Not on filedocumented in this encounter Care Teams Insulator Helper Relationship Specialty Start Date End Date Olga Hoffman APRN [address] [place] [address] PCP - General Family Medicine 10/30/22 documented as of this encounter
--- OUTSIDE RECORDS SUMMARY | 2024-05-21 01:13 | XMS_ITS | Encounter Summary ---
Author Organization [facility] [place] [address] Care Team Providers Care Radio Dispatcher Name Role Phone Dariana Méndez MD Primary Care Provider [phone] Encounter Details Date Type Department Care Team (Late st Contact Info) Description 09/23/2022 Ancillary Procedure [place] [address] Dariana Méndez MD [address] [place] [address] Social History Tobacco Use Types Packs/Day Years [...] AM EDT Office [place] [address] Nighat López MD [facility] [place] [address] 05/28/2024 8:00 AM EDT Office Visit Hematology/Oncology at [address] [phone] Rodriguez Fowler MD [facility] [place] [address] Sherry Cedillo APRN [address] [place] [address] DR HEMATOLOGY AND ONCOLOGY [place], [place] [id number] 05/28/2024 8:30 AM EDT Infusion Hematology Oncology at [address] [phone] 05/28/2024 9:30 AM EDT Clinical Support Hematology/Oncology at [address] [phone] Leah Rose, RD [facility] DR [place] [address] documented as of this encounter Procedures Procedure Name Priority Date/Time Associated Diagnosis Comments FILM LIBRARY STORAGE ONLY CT CHEST ABDOMEN PELVIS Routine 09/23/2022 12:00 AM EST documented in this encounter Results * Film Library- Storage Only CT Chest Abdomen Pelvis (09/23/2022 12:00 AM EST) Narrative [facility] - 10/30/2022 10:11 AM EST This exam is auto-finalizing. It's purpose is for storage only. Dariana Méndez MD [facility] FILM LIBRARY ORD ERABLES [place], [place] documented in this encounter Visit Diagnoses Not on filedocumented in this encounter Care Teams Radio Dispatcher Relationship Specialty Start Date End Date Dariana Méndez MD [address] [place] [address] PCP - General Family Medicine 07/16/16 10/29/22 documented as of this encounter
--- OUTSIDE RECORDS SUMMARY | 2024-05-21 01:13 | XMS_ITS | Encounter Summary ---
Author Organization [facility] [place] [address] Care Team Providers Care Electrical Logging Engineer Name Role Phone Dariana Méndez MD Primary Care Provider [phone] Reason for Visit * Reason Comments Medication Refill Encounter Details Date Type Department Care Team (Late Contact Info) Description 09/14/2017 Refill [place] [address] Faye Maxwell MD [facility] [place] [address] Proteinuria; Obesity; Hypertension secondary to other renal [...] 9:00 AM EDT Office [place] [address] Nighat López MD [facility] [place] [address] 05/28/2024 8:00 AM EDT Office Visit Hematology/Oncology at [address] [phone] Rodriguez Fowler MD [facility] [place] [address] Sherry Cedillo APRN [address] [place] [address] DR HEMATOLOGY AND ONCOLOGY [place], [place] [phone] 05/28/2024 8:30 AM EDT Infusion Hematology Oncology at [address] [phone] 05/28/2024 9:30 AM EDT Clinical Support Hematology/Oncology at [address] [phone] [facility] DR HEMATOLOGY [place] [address] documented as of this encounter Visit Diagnoses Diagnosis Proteinuria Obesity Obesity, unspecified Hypertension secondary to other renal disorders documented in this encounter Care Teams Electrical Logging Engineer Relationship Specialty Start Date End Date Dariana Méndez MD [address] [place] [address] PCP - General Family Medicine 07/16/16 10/29/22 documented as of this encounter
--- OUTSIDE RECORDS SUMMARY | 2024-05-21 01:13 | XMS_ITS | Encounter Summary ---
Author Organization [facility] [place] [address] Care Team Providers Care Networks Software Consultant Name Role Phone Dariana Méndez MD Primary Care Provider Reason for Referral * Consultation (Routine) - Closed Specialty Diagnoses / Procedures Referred By Contac t Referred To Contact General Surgery Diagnoses Proteinuria, unspecified type Obesity, unspecified classification, unspecified obesity type, unspecified whether serious comorbidity present Hypertension secondary to other renal disorders Faye Maxwell MD [facility] [place] [address] [facility] [address] [address] Referral ID Status Reason Start Date Expiration Date V isits Requested Visits Authorized [id number] Closed Assume Subset of Care 11/14/2017 11/14/2018 1 1 Encounter Details Date Type Department Care Team (Latest Contact Info) Description 11/14/2017 4:30 PM EST Office Visit [place]ph[place] [address] Faye Maxwell MD [facility] [place] [address] Proteinuria, unspecified type; Obesity, unspecified classification, unspecified [...] Sign Reading Time Taken Comments Blood Pressure 116/72 11/14/2017 8:28 AM EST Pulse 84 11/14/2017 8:28 AM EST Temperature - - Respiratory Rate - - Oxygen Saturation - - Inhaled Oxygen Concentration - - Weight 154.7 kg (341 lb) 11/14/2017 8:28 AM EST Height 188 cm (6' 2) 11/14/2017 8:28 AM EST Body Mass Index 43.78 11/14/2017 8:28 AM EST documented in this encounter Progress Notes * Faye Maxwell MD - 11/14/2017 4:30 PM EST I had the pleasure of seeing your patient Charles Jadein the Renal and Hypertension clinic Charles Jade [id number] Chief Complaint: This is a followup visit to the Renal and Hypertension clinic for this 41 y.o. year old man Mr Jade stopped all medications for some time and has now resumed taking them. He is concerned that he has regained the weight he lost last year. He reports that glycemic control is improved. Does not check BP at home. COntinues to use CPAP. He reports lower extremity Edema worse at the end of theday. No hand or facial edema. Denies dyspnea, chest pain. No foamy union or LUTs. No new medications. No NSAIDs ?? 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 Underwent spontaneous remission without imunotherapy. Repeat biopsy in 2007 at [facility]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Remians in remission. ?? Morbid obesity. ?? DMII diagnosed one year ago. No identified complications ?? Obstructive sleep apnea: Uses CPAP with improvement tin daytime alertness and mood ?? Depression, anxiety Reports his father, who lives in [place], has proteinuria and edema. Father is not diabetic. 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 Habits: Non smoker. Patient Active Problem List Diagnosis Code ??? CKD (chronic kidney disease) stage 3, GFR 30-59 ml/min N18.3 ??? Obesity E66.9 Medications Current Outpatient Prescriptions on File Prior to Visit Medication Sig Dispense Refill ??? furosemide (LASIX) 20 mg Tablet TAKE ONE TABLET BY MOUTH TWICE A DAY 60 tablet 0 ??? metFORMIN (GLUCOPHAGE) 1,000 mg Tablet Take [...] obese male who appears well Blood pressure 116/72, pulse 84, height 188 cm (6' 2), weight (!) 154.7 kg (341 lb). Vitals: 11/14/17 0828 BP: 116/72 Pulse: 84 Weight: (!) 154.7 kg (341 lb) Height: 188 cm (6' 2) The oropharynx [...] Mood approprite Urinalysis: Dipstick negative for blood, negative protein, 2+ glucose Urine microscopy: no cells casts or crystals Laboratory and other data: Reviewed see eDH. Notable for: Random glucose 193 mg/dl , Mild polycythemia c/w JOSE, otherwise as above. Results for CHARLES JADE ( ) as of 11/14/2017 16:10 Ref. Range 08/16/2016 15:30 11/14/2017 15:39 WBC Latest Ref Range: 4.0 - 9.5 x10(3)/mcL 10.6 (H) RBC Latest Ref Range: 4.58 - 5.54 x10(6)/mcL 6.35 (H) Hemoglobin Latest Ref Range: 13.7 - 16.5 gm/dL 16.1 Hematocrit Latest Ref Range: 40.5 - 48.5 % 48.0 MCV Latest Ref Range: 82.9 - 93.1 fL 75.6 (L) MCH Latest Ref Range: 27.5 - 32.1 pg 25.4 (L) MCHC Latest Ref Range: 32.0 - 35.7 gm/dL 33.5 RDWSD Latest Ref Range: 36.0 - 45.0 fL 38.8 RDWCV Latest Ref Range: 11.4 - 13.8 % 14.4 (H) Platelets Latest Ref Range: 145 - 357 x10(3)/mcL 219 MPV Latest Ref Range: 7.6 - 12.9 fL 11.0 nRBC % Auto Latest Units: % 0.0 nRBC Abs Auto Latest Ref Range: 0.000 - 0.000 x10(3)/mcL 0.000 Neutr Abs (ANC) Latest Ref Range: 1.70 - 6.10 x10(3)/mcL 6.63 (H) Results for CHARLES JADE ( ) as of 11/16/2017 10:19 Ref. Range 07/13/2015 15:13 07/13/2015 15:17 08/16/2016 14:14 08/16/2016 15:30 11/14/2017 15:39 Sodium Latest Ref Range: 135 - 145 mmol/L 138 139 135 Potassium Latest Ref Range: 3.5 - 5.0 mmol/L 3.6 4.3 4.2 Chloride Latest Ref Range: 98 - 107 mmol/L 99 97 (L) 93 (L) CO2 Latest Ref Range: 22 - 31 mmol/L 27 30 25 Anion Gap Latest Ref Range: 5 - 15 mmol/L 12 12 17 (H) BUN Latest Ref Range: 10 - 20 mg/dL 12 11 11 Creatinine Latest Ref Range: 0.80 - 1.50 mg/dL 0.99 1.21 1.01 Estimated GFR Latest Ref Range: >=60 >60 >60 >60 Glucose Lvl Latest Ref Range: 65 - 199 mg/dL 107 183 313 (H) Calcium Latest Ref Range: 8.5 - 10.5 mg/dL 9.0 9.0 8.9 Uric Acid Latest Ref Range: 3.5 - 8.5 mg/dL 5.0 Albumin Latest Ref Range: 3.2 - 5.2 gm/dL 3.9 U Protein Ran Latest Ref Range: 0 - 12 mg/dL 135 (H) 27 (H) Results for CHARLES JADE ( ) as of 11/16/2017 10:19 Ref. Range 07/13/2015 15:17 08/16/2016 15:30 11/14/2017 16:00 Alb/Cr Ratio, Random Latest Ref Range: 0 - 29 mcg/mg Cr 54 (H) Prot/Cre Ratio Latest Units: ratio 0.8 0.2 U Albumin Conc, Random Latest Units: mg/L 11.9 U Protein Ran Latest Ref Range: 0 - 12 mg/dL 135 (H) 27 (H) U Creatinine Latest Units: mg/dL 163 137 22 Radiology studies reviewed: None this visit Diagnosis, Medical decision making and Recommendations: 1. Idiopathic membranous glomerulopathy in remission. 2. Stasis edema related to obesity. Increase furosemide to 40 mg BID. Encourage low salt diet 3. DMII - discussed importance of control 4. Hypertension well controlled 5. Obesity, JOSE, DMII. Pateint concerned about his weight. Agrees to informational referral to bariatric surgery program 6. Obstructive sleep apnea well controlled 7. Followup visit: 12 months with labs. Labs ordered via eDH Thank you for involving me in the care of this very pleasant and interestingpatient CC: Dariana Méndez MD @[email or web address]@ documented in this encounter Plan of Treatment Upcoming Encounters Date Type Department Care Team (Late st Contact Info) Description 05/21/2024 9:00 AM EDT Office [place] [address] Nighat López MD [facility] [place] [address] 05/28/2024 8:00 AM EDT Office Visit Hematology/Oncology at [address] [phone] Rodriguez Fowler MD [facility] [place] [address] Sherry Cedillo APRN [address] [place] [address] DR HEMATOLOGY AND ONCOLOGY [place], [place] [phone] 05/28/2024 8:30 AM EDT Infusion Hematology Oncology at [address] [phone] 05/28/2024 9:30 AM EDT Clinical Support Hematology/Oncology at [address] [phone] Leah Rose, RD [facility] DR [place] [address] Scheduled Referrals Name Type Priority Associated Diagnoses Orde r Schedule Referral to Bariatric Surgery Program Outpatient Referral Routine Proteinuria, unspecified type Obesity, unspecified classification, unspecified obesity type, unspecified whether serious comorbidity present Hypertension secondary to other renal disorders Ordered: 11/14/2017 documented as of this encounter Procedures Procedure Name Priority Date/Time Associated Diagnosis Comments U ALBUMIN/CRE RATIO Routine 11/14/2017 4 :00 PM EST Proteinuria, unspecified type Obesity, unspecified classification, unspecified obesity type, unspecified whether serious comorbidity present Hypertension secondary to other renal disorders documented in this encounter Results * Uric acid (12/22/2018 9:49 AM EDT) Uric Acid 4.0 3.5 - 8.5 mg/dL [facility] Blood specimen (specimen) 12/22/2018 9:49 AM EDT 12/22/2018 10:01 AM EDT Narrative Resulting Agency Comment Spec In Lab Faye Maxwell MD CHEMISTRY ORDERABLES [facility] [place] [address] * Albumin Level (12/22/2018 9:49 AM EDT) Albumin 3.7 3.2 - 5.2 gm/dL [facility] Blood specimen (specimen) 12/22/2018 9:49 AM EDT 12/22/2018 10:01 AM EDT Narrative Resulting Agency Comment Spec In Lab Faye Maxwell MD CHEMISTRY ORDERABLES [facility] [place] [address] * (ABNORMAL) Basic Metabolic Panel (non-fasting) (12/22/2018 9:49 AM EDT) Glucose 409(H) 65 - 199 mg/dL [facility] Comment:Diabetes: >=200 mg/d L plus symptoms Blood Urea Nitrogen 8(L) 10 - 20 mg/dL [facility] Creatinine 0.85 0.80 - 1.50 mg/dL [facility] Sodium 134(L) 135 - 145 mmol/L [facility] Potassium 4.3 3.5 - 5.0 mmol/L [facility] Comment: Please note: ??Patients with WBC >100,000 may have falsely elevated Potassium levels. ??For accurate Potassium quantification in these patients send serum separator tube (gold top) for subsequent determinations. ??Contact the Clinical Chemistry Laboratory if there are any questions. Chloride 101 98 - 107 mmol/L [facility] Carbon Dioxide 22 22 - 31 mmol/L [facility] Anion Gap 11 5 - 15 mmol/L [facility] Calcium 8.9 8.5 - 10.5 mg/dL [facility] Est Glomerular Filtration Rate 106 >=60 mL/min/1. 73 m?? [facility] Comment: The eGFR was calculated using the CKD-EPI equation. As with all creatinine based estimates of kidney function, eGFR values calculated with the CKD-EPI equation are not accurate in patients with acute kidney failure, extremes of body mass or the acutely ill. http://[place] [employer]/[facility] eGFR 123 >=60 mL/min/1. 73 m?? [facility] Comment: The eGFR was calculated using the CKD-EPI equation. As with all creatinine based estimates of kidney function, eGFR values calculated with the CKD-EPI equation are not accurate in patients with acute kidney failure, extremes of body mass or the acutely ill. http://[place] [employer]/[facility] Blood specimen (specimen) 12/22/2018 9:49 AM EDT 12/22/2018 10:01 AM EDT Narrative Resulting Agency Comment Spec In Lab Faye Maxwell MD CHEMISTRY ORDERABLES Performing Organization Address City/[facility]/ZIP Co de Phone Number [facility] [place] [address] * (ABNORMAL) U Albumin/Cre Ratio (11/14/2017 4:00 PM EST) Albumin / Creatinin Ratio, Urine 54(H) 0 - 29 mcg/mg Cr [facility] Comment: Reference Ranges: <30 mcg/mg: Normal [...] Supplements (2012) 2, 357? 362 Albumin, Urine 11.9 mg/L [facility] Creatinine, Urine 22 mg/dL [facility] Urine specimen (specimen) 11/14/2017 4:00 PM EST 11/14/2017 4:48 PM EST Narrative Resulting Agency Comment Spec In Lab Faye Maxwell MD URINE ORDERABLES Performing Organization Address City/[facility]/ZIP Co de Phone Number [place] [address] documented in this encounter Visit Diagnoses Diagnosis Proteinuria, unspecified type Obesity, unspecified classification, unspecified obesity type, unspecified whether serious comorbidity present Hypertension secondary to other renal disorders documented in this encounter Care Teams Networks Software Consultant Relationship Specialty Start Date End Date Dariana Méndez MD [address] [place] [address] PCP - General Family Medicine 07/16/16 10/29/22 documented as of this encounter
--- OUTSIDE RECORDS SUMMARY | 2024-05-21 01:13 | XMS_ITS | Encounter Summary ---
Author Organization [facility] [place] [address] Care Team Providers Care Cloud Developer Name Role Phone JuanMichelinehubert Liu APRN Primary Care Provider [phone] Encounter Details Date Type Department Care Team (Latest Contact Info) Description 07/13/2015 3:00 PM EDT Laboratory Appointment Lab [address] [place] [phone] CKD (chronic kidney disease) stage 3, GFR 30-59 ml/min; Persistent proteinuria; Morbid obesity with BMI of 45.0-49.9, adult; Obstructive sleep apnea Social History Tobacco Use Types Packs/Day Years [...] 9:00 AM EDT Office [place] [address] Nighat López MD [facility] [place] [address] 05/28/2024 8:00 AM EDT Office Visit Hematology/Oncology at [address] [phone] Rodriguez Fowler MD [facility] [place] [address] Sherry Cedillo, YOCASTA [address] [place] [address] DR HEMATOLOGY AND ONCOLOGY [place], [place] [id number] 05/28/2024 8:30 AM EDT Infusion Hematology Oncology at [address] [phone] 05/28/2024 9:30 AM EDT Clinical Support Hematology/Oncology at [address] [phone] Leah Rose, RD [facility] [place] [address] documented as of this encounter Procedures Procedure Name Priority Date/Time Associated Diagnosis Comments PROTEIN/CREATININE RATIO, URINE Routine 07/13/2015 3:17 PM EDT CKD (chronic kidney disease) stage 3, GFR 30-59 ml/min Persistent proteinuria Morbid obesity with BMI of 45.0-49.9, adult Obstructive sleep apnea HEMOGRAM Routine 07/13/2015 3:13 PM EDT CKD (chronic kidney disease) stage 3, GFR 30-59 ml/min Persistent proteinuria Morbid obesity with BMI of 45.0-49.9, adult Obstructive sleep apnea DIFFERENTIAL, AUTOMATED Routine 07/13/2015 3:13 PM EDT CKD (chronic kidney disease) stage 3, GFR 30-59 ml/min Persistent proteinuria Morbid obesity with BMI of 45.0-49.9, adult Obstructive sleep apnea CBC (WITH DIFF) Routine 07/13/2015 3:13 PM EDT CKD (chronic kidney disease) stage 3, GFR 30-59 ml/min Persistent proteinuria Morbid obesity with BMI of 45.0-49.9, adult Obstructive sleep apnea BASIC METABOLIC PANEL Routine 07/13/2015 3:13 PM EDT CKD (chronic kidney disease) stage 3, GFR 30-59 ml/min Persistent proteinuria Morbid obesity with BMI of 45.0-49.9, adult Obstructive sleep apnea documented in this encounter Results * (ABNORMAL) Protein/Creatinine Ratio, urine (07/13/2015 3:17 PM EDT) Creatinine, Urine 163 mg/dL CERNER MILLENNIUM Protein, Urine 135(H) 0 - 12 mg/dL CERNER MILLENNIUM Protein / Creatinine Ratio, Urine 0.8 ratio CERNER MILLENNIUM Urine specimen (specimen) 07/13/2015 3:17 PM EDT 07/13/2015 3:21 PM EDT Narrative Resulting Agency Comment Spec In Lab Faye Maxwell MD URINE ORDERABLES CERNER MILLENNIUM * (ABNORMAL) Differential, Automated (07/13/2015 3:13 PM EDT) Neutrophil % 72.8 % CERNER MILLENNIUM Neutrophil Absolute 8.35(H) 1.50 - 6.30 x10(3)/mc L CERNER MILLENNIUM Lymph % 20.3 % CERNER MILLENNIUM Lymphocytes Abs 2.3 1.0 - 3.6 x10(3)/mc L CERNER MILLENNIUM Monocyte % 4.5 % CERNER MILLENNIUM Monocyte Abs 0.5 0.2 - 1.0 x10(3)/mc L CERNER MILLENNIUM Eos % 1.8 % CERNER MILLENNIUM Eosinophils Abs 0.2 0.0 - 0.5 x10(3)/mc L CERNER MILLENNIUM Basophil % 0.3 % CERNER MILLENNIUM Baso Absolute 0.0 0.0 - 0.2 x10(3)/mc L CERNER MILLENNIUM Immature Gran % 0.30 % CERN ER MILLENNIUM Comment: Immature granulocytes(IG's)percentage and absolute count will include metamyelocytes, myelocytes, and promyelocytes. Blood smears from CBCs yielding IG's will be scanned manually for concordance. If this scan disagrees with the automated IG or if promyelocytes are noted, a manual differential will be performed. Immature Gran Absolute 0.03 0.00 - 0.05 x10(3)/mc L CERNER MILLENNIUM Blood specimen (specimen) 07/13/2015 3:13 PM EDT 07/13/2015 3:19 PM EDT Narrative Resulting Agency Comment Spec In Lab Faye Maxwell MD HEMATOLOGY ORDERABLE S Performing Organization Address [facility] Co de Phone Number CRISTO LIENNIUM * (ABNORMAL) Hemogram (07/13/2015 3:13 PM EDT) White Blood Cell 11.4(H) 4.0 - 10.0 x10(3)/mc L CERNER MILLENNIUM Red Blood Cell 6.21(H) 4.63 - 6.08 x10(6)/mc L CERNER MILLENNIUM Hemoglobin 15.7 13.7 - 17.5 gm/dL CERNER MILLENNIUM Hematocrit 46.8 40.0 - 51.0 % CERNER MILLENNIUM Mean Cell Volume 75.4(L) 79.0 - 92.0 fL CERNER MILLENNIUM Mean Cell Hemoglobin 25.3(L) 25.6 - 32.2 pg CERNER MILLENNIUM Mean Cell Hemoglobin Concentration 33.5 32.0 - 36.5 gm/dL CERNER MILLENNIUM Platelet 196 145 - 370 x10(3)/mc L CERNER MILLENNIUM RDW Standard Deviation 41.0 35.0 - 46.0 fL CERNER MILLENNIUM RDW coefficient of variation 15.1(H) 10.9 - 14.4 % CERNER MILLENNIUM Mean Platelet Volume 10.8 9.0 - 12.0 fL CERNER MILLENNIUM Blood specimen (specimen) 07/13/2015 3:13 PM EDT 07/13/2015 3:19 PM EDT Narrative Resulting Agency Comment Spec In Lab Faye Maxwell MD HEMATOLOGY ORDERABLE S Performing Organization Address [facility]/ZIP Co de Phone Number CRISTO ESCOBARIUM * Basic Metabolic Panel (non-fasting) (07/13/2015 3:13 PM EDT) Glucose 107 65 - 199 mg/dL CERNER MILLENNIUM Comment:Diabetes: >=200 mg/d L plus symptoms Blood Urea Nitrogen 12 10 - 20 mg/dL CERNER MILLENNIUM Creatinine 0.99 0.80 - 1.50 mg/dL CERNER MILLENNIUM Comment: Please note that the pediatric reference intervals supplied above were not validated at [facility]. Results from pediatric patients should be interpreted in conjunction to the patient's age, height and muscle mass. Sodium 138 135 - 145 mmol/L CERNER MILLENNIUM Potassium 3.6 3.5 - 5.0 mmol/L CERNER MILLENNIUM Comment: Please note: ??Patients with WBC >100,000 may have falsely elevated Potassium levels. ??For accurate Potassium quantification in these patients send serum separator tube (gold top) for subsequent determinations. ??Contact the Clinical Chemistry Laboratory if there are any questions. Chloride 99 98 - 107 mmol/L CERNER MILLENNIUM Carbon Dioxide 27 22 - 31 mmol/L CERNER MILLENNIUM Anion Gap 12 5 - 15 mmol/L CERNER MILLENNIUM Calcium 9.0 8.5 - 10.5 mg/dL CERNER MILLENNIUM Est Glomerular Filtration Rate >60 >=60 CERNER MILLENNIUM Comment: This estimated GFR (eGFR) value was [...] the following links into your internet browser. [email or web address] Blood specimen (specimen) 07/13/2015 3:13 PM EDT 07/13/2015 3:19 PM EDT Narrative Resulting Agency Comment Spec In Lab Faye Maxwell MD CHEMISTRY ORDERABLES CRISTO MIGUEL documented in this encounter Visit Diagnoses Diagnosis CKD (chronic kidney disease) stage 3, GFR 30-59 ml/min Chronic kidney disease, Stage III (moderate) Persistent proteinuria Proteinuria Morbid obesity with BMI of 45.0-49.9, adult Morbid obesity Obstructive sleep apnea Obstructive sleep apnea (adult) (pediatric) documented in this encounter Care Teams Cloud Developer Relationship Specialty Start Date End Date Elke Martinez APRN [address] [place] [address] PCP - General 08/07/10 03/03/16 documented as of this encounter
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
--- OUTSIDE RECORDS SUMMARY | 2024-05-21 01:14 | XMS_ITS | Encounter Summary ---
Author Organization [facility] [place] [address] Care Team Providers Care Molding Machine Setter Name Role Phone MartinezElke Alexa RUST Primary Care Provider [phone] Reason for Visit * Reason Onset Date Comments Other 02/19/2011 inform pt of uri ne protein result Encounter Details Date Type Department Care Team (Late st Contact Info) Description 02/19/2011 Telephone Nephrology [place] [address] Faye Maxwell MD [facility] [place] [address] Other (inform pt of urine protein result) Social History Tobacco Use Types Packs/Day Years Used Date Smoking Tobacco: Never Assessed Sex and Gender Information Value Date Recorded Sex Assigned at Not on file Gender Identity Not on file Sexual Orientation Not on file documented as of this encounter Miscellaneous Notes * Telephone Encounter - Faye Maxwell MD - 02/19/2011 10:09 AM EDT Dear Charles Soto It was a pleasure to see you in the Renal Clinic recently I am writing to let you know that your urine protein measurement was only slightly above normal - 500mg per 24h as estimated by the spot urine test. I think that this means that your kidney diseases is in remission - which is good news. I do not think that you need to resume either of your blood pressure medications. Please let me know if you develop swelling in your feet, legs, hand or face or if your urine becomes foamy or you see blood in the urine. I look forward to seeing you again in Renal Clinic next year. Please do not hesitate to call if youhave any questions Best wishes, Sincerely, documented in this encounter Plan of Treatment Upcoming Encounters Date Type Department Care Team (Late st Contact Info) Description 05/21/2024 9:00 AM EDT Office Visit [place] [address] Nighat López MD [facility] [place] [address] 05/28/2024 8:00 AM EDT Office Visit Hematology/Oncology at [address] [phone] Rodriguez Fowler MD [facility] [place] [address] Sherry Cedillo APRN [address] [place] [address] DR HEMATOLOGY AND ONCOLOGY [place], [place] [phone] 05/28/2024 8:30 AM EDT Infusion Hematology Oncology at [address] [phone] 05/28/2024 9:30 AM EDT Clinical Support Hematology/Oncology at [address] [phone] [facility] DR HEMATOLOGY [place] [address] documented as of this encounter Visit Diagnoses Not on filedocumented in this encounter Care Teams Molding Machine Setter Relationship Specialty Start Date End Date Elke Martinez APRN [address] [place], [place] [address] PCP - General 08/07/10 03/03/16 documented as of this encounter
--- OUTSIDE RECORDS SUMMARY | 2024-05-21 01:14 | XMS_ITS | Encounter Summary ---
Author Organization [facility] [place] [address] Care Team Providers Care In File Operator Name Role Phone JuanMichelinehubert Liu APRN Primary Care Provider [phone] Encounter Details Date Type Department Care Team (Late st Contact Info) Description 02/12/2011 Abstract [place] [phone] Charline Garcia, RN Social History Tobacco Use Types Packs/Day [...] 9:00 AM EDT Office [place] [address] Nighat López MD [facility] [place] [address] 05/28/2024 8:00 AM EDT Office Visit Hematology/Oncology at [address] [phone] Rodriguez Fowler MD [facility] [place] [address] Sherry Cedillo APRN [address] [place] [address] [place] [address] 05/28/2024 8:30 AM EDT Infusion Hematology Oncology at [address] [phone] 05/28/2024 9:30 AM EDT Clinical Support Hematology/Oncology at [address] [phone] Leah Rose, RD [facility] DR [place] [address] documented as of this encounter Visit Diagnoses Not on filedocumented in this encounter Care Teams In File Operator Relationship Specialty Start Date End Date Elke Martinez APRN [address] [place] [address] PCP - General 08/07/10 03/03/16 documented as of this encounter
--- OUTSIDE RECORDS SUMMARY | 2024-05-21 01:14 | XMS_ITS | Encounter Summary ---
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 Discharge Disposition: Home Social History Tobacco Use Types Packs/Day Years Used Date Smoking Tobacco: Never Sex and Gender Information Value Date Recorded Sex Assigned at Not on file Gender Identity Not on file Sexual Orientation Not on file documented as of this encounter Last Filed Vital Signs Vital Sign Reading Time Taken Comments Blood Pressure 139/88 05/27/2012 1:49 PM EDT Pulse 82 05/27/2012 1:49 PM EDT Temperature - - Respiratory Rate - - Oxygen Saturation - - Inhaled Oxygen Concentration - - Weight 159.7 kg (352 lb) 05/27/2012 1:49 PM EDT Height 188 cm (6' 2) 05/27/2012 1:49 PM EDT Body Mass Index 45.19 05/27/2012 1:49 PM EDT documented in this encounter Progress Notes * Faye Maxwell MD - 05/27/2012 3:06 PM EDT I had the pleasure of seeing your patient Charles Nickin the Renal and Hypertension clinic Charles Nick 1975 [id number] Chief Complaint: This is a followup visit to the Renal and Hypertension clinic for this 36 y.o. year old woman with a diagnosis of membranous nephropathy presenting with hematuria and NS in 2006 and underwent spontaneous remission without imunotherapy. He underwent biopsy in 2007 at [facility] which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 Additional PMH: Morbid obesity, depression, anxiety Today c/o sudden 15lb weight gain over past month.. Some ankle swelling. Feels ired, but not dyspneic. No orthopnea, No swelling hands or fACE, NO HEMATuria, no rash, joint pain or jaundice. No new meds Reports his father, who lives in [place], has recently developed proteinuria and edema. Father is not diabetic. Most recent serum creatinine: 0.98 mg/dl Most recent eGFR Ml/min Most recent spot urine protein: creatinine ratio 0.6. Stable (approximates urinary protein in gramsper 24h) Serum albumin 3.9 g/dl Patient Active Problem List Diagnoses Code ??? CKD (chronic kidney disease) stage 3, GFR 30-59 ml/min 585.3F ??? Obesity 278.00M Medications No current outpatient prescriptions on file prior to encounter. Non-steroidal anti-inflammatory medications: None Past Medical History, Family and Social History Reviewed in CIS and/or paper chart Current Diet: regular Current excercise: none Review of Systems: Unchanged since visit except as noted above Physical Exam Charles Nick is a morbidly obese male who appears well Filed Vitals: 05/27/12 1349 BP: 139/88 Pulse: 82 Height: 188 cm (6' 2) Weight: 159.666 kg (352 lb) Previous weight 3325 lb, BMI 45.17 The oropharynx and neck are unremarkable There is trace - 1+ peripheral edema to mid huff and no sacral edema. The chest is clear to auscultation. Three is no JVD The heart sound are S1 plus S2 with no rubs, murmurs or gallops. The abdomen is obese Urinalysis: Dipstick negative for blood, 100 protein Urine microscopy: occasional SEC, occasional hyaline cast, otherwise no cells casts or crystals Laboratory and other data: Reviewed see eDH. Notable for: Radiology studies reviewed Diagnosis, Medical decision making and Recommendations: 1. Weight gain without clinical evidence of excessive edema or nephrotic syndrome. LE edema due to obesity. I suspect that this is an actual body weight gain. Aternatives seem clinically very unlikely, but would include include ascites due to cirrhhosis 2/2 CHAN, cardiomyopathy or consticitve/rstricitve heart disease. I would not recommend pursuing any of these diagnoses unless pt develops more specific symptoms 2. Discussed fact that Charles's weight seems to be impacting his health. He agrees, but finds it very difficult to lose weight. His is also determined to lose weight. 3. Has been more anxious and depressed recently. Discussed that there is no renal contraindication to antidepressant or anti-anxiety medication and that renal dose adjustment is not indicated in his case 4. Followup visit: 6 months with labs. Labs ordered via eDH Thank you for involving me in the care of this interesting patient CC: ELKE MARTINEZ APRN @[email or web address] documented in this encounter Plan of Treatment Upcoming Encounters Date Type Department Care Team (Late st Contact Info) Description 05/21/2024 9:00 AM EDT Office [place] [address] Nighat López MD [facility] [place] [address] 05/28/2024 8:00 AM EDT Office Visit Hematology/Oncology at [address] [phone] Rodriguez Fowler MD [facility] [place] [address] Sherry Cedillo APRN [address] [place] [address] DR HEMATOLOGY AND ONCOLOGY [place], [place] [phone] 05/28/2024 8:30 AM EDT Infusion Hematology Oncology at [address] [phone] 05/28/2024 9:30 AM EDT Clinical Support Hematology/Oncology at [address] [phone] Leah Rose, ARASH [facility] DR HEMATOLOGY [place] [address] documented as of this encounter Procedures Procedure Name Priority Date/Time Associated Diagnosis Comments PROTEIN/CREATININ E RATIO, URINE Routine 05/27/2012 1:14 PM EDT 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 DIFFERENTIAL, AUTOMATED Routine 05/27/2012 1:08 PM EDT CBC (WITH DIFF) Routine 05/27/2012 1:08 PM EDT 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 ALBUMIN LEVEL Routine 05/27/2012 1:08 PM EDT 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 BASIC METABOLIC PANEL Routine 05/27/2012 1:08 PM EDT 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 documented in this encounter Results * (ABNORMAL) Protein / creatinine ratio, urine (05/27/2012 1:14 PM EDT) Creatinine, Urine 210 mg/dL CERNER MILLENNIUM Protein, Urine 122(H) 0 - 12 mg/dL CRISTO MILLENNIUM Protein / Creatinine Ratio, Urine 0.6 ratio CRISTO MILLENNIUM Urine specimen (specimen) 05/27/2012 1:14 PM EDT 05/27/2012 1:19 PM EDT Narrative Resulting Agency Comment Spec In Lab Faye Maxwell MD URINE ORDERABLES CRISTO ESCOBARIUM * DIFFERENTIAL, AUTOMATED (05/27/2012 1:08 PM EDT) Neutrophil % 68.7 34.0 - 71.0 % CERNER MILLENNIUM Neutrophil Absolute 5.94 1.50 - 6.30 x10(3)/mcL CERNER MILLENNIUM Lymph % 24.7 19.0 - 53.0 % CERNER MILLENNIUM Lymphocytes Abs 2.1 1.0 - 3.6 x10(3)/mcL CERNER MILLENNIUM Monocyte % 4.3 4.0 - 13.0 % CERNER MILLENNIUM Monocyte Abs 0.4 0.2 - 1.0 x10(3)/mcL CERNER MILLENNIUM Eos % 1.8 0.0 - 7.0 % CERNER MILLENNIUM Eosinophils Abs 0.2 0.0 - 0.5 x10(3)/mcL CERNER MILLENNIUM Basophil % 0.3 0.0 - 2.0 % CERNER MILLENNIUM Baso Absolute 0.0 0.0 - 0.2 x10(3)/mcL CERNER MILLENNIUM Immature Gran % 0.20 0.00 - 0.66 % CERNER MILLENNIUM Comment: Immature granulocytes(IG's)percentage and absolute count will include metamyelocytes, myelocytes, and promyelocytes. Blood smears from CBCs yielding IG's will be scanned manually for concordance. If this scan disagrees with the automated IG or if promyelocytes are noted, a manual differential will be performed. Immature Gran Absolute 0.02 0.00 - 0.05 x10(3)/mcL CERNER MILLENNIUM Blood specimen (specimen) 05/27/2012 1:08 PM EDT 05/27/2012 1:16 PM EDT Faye Maxwell MD HEMATOLOGY ORDERABLE S CERDENA LIENNIUM * (ABNORMAL) CBC (with Diff) (05/27/2012 1:08 PM EDT) White Blood Cell 8.7 4.0 - 10.0 x10(3)/mc L CERNER MILLENNIUM Red Blood Cell 6.18(H) 4.63 - 6.08 x10(6)/mc L CERNER MILLENNIUM Hemoglobin 15.8 13.7 - 17.5 gm/dL CERNER MILLENNIUM Hematocrit 47.4 40.0 - 51.0 % CERNER MILLENNIUM Mean Cell Volume 76.7(L) 79.0 - 92.0 fL CERNER MILLENNIUM Mean Cell Hemoglobin 25.6 25.6 - 32.2 pg CERNER MILLENNIUM Mean Cell Hemoglobin Concentration 33.3 32.0 - 36.5 gm/dL CERNER MILLENNIUM Platelet 185 145 - 370 x10(3)/mc L CERNER MILLENNIUM RDW Standard Deviation 41.4 35.0 - 46.0 fL CERNER MILLENNIUM RDW coefficient of variation 14.9(H) 10.9 - 14.4 % CERNER MILLENNIUM Mean Platelet Volume 10.7 9.0 - 12.0 fL CERNER MILLENNIUM Blood specimen (specimen) 05/27/2012 1:08 PM EDT 05/27/2012 1:16 PM EDT Narrative Resulting Agency Comment Spec In Lab Faye Maxwell MD HEMATOLOGY ORDERABLE S Performing Organization Address [facility] Co de Phone Number [facility] MILLENNIUM * Albumin (05/27/2012 1:08 PM EDT) Pathologist [facility] Albumin 3.9 3.2 - 5.2 gm/dL [facility] Blood specimen (specimen) 05/27/2012 1:08 PM EDT 05/27/2012 1:16 PM EDT Narrative Resulting Agency Comment Spec In Lab Faye Maxwell MD CHEMISTRY ORDERABLES Performing Organization Address [facility] Co de Phone Number [facility] * Basic metabolic panel (05/27/2012 1:08 PM EDT) Glucose 94 60 - 199 mg/dL [facility] MILL[facility] Comment:Diabetes: >=200 mg/d L plus symptoms Blood Urea Nitrogen 11 10 - 20 mg/dL CERNER MILLENNIUM Creatinine 0.97 0.80 - 1.50 mg/dL CERNER MILLENNIUM Comment: Please note that the pediatric reference intervals supplied above were not validated at [facility]. Results from pediatric patients should be interpreted in conjunction to the patient's age, height and muscle mass. Sodium 140 135 - 145 mmol/L [facility] MILLENNIUM Potassium 3.8 3.5 - 5.0 mmol/L CERNER MILLENNIUM Comment: Please note: ??Patients with WBC >100,000 may have falsely elevated Potassium levels. ??For accurate Potassium quantification in these patients send serum separator tube (gold top) for subsequent determinations. ??Contact the Clinical Chemistry Laboratory if there are any questions. Chloride 104 98 - 107 mmol/L CERNER MILLENNIUM Carbon Dioxide 29 22 - 31 mmol/L CERNER MILLENNIUM Anion Gap 7 5 - 15 mmol/L CERNER MILLENNIUM Calcium 8.8 8.5 - 10.5 mg/dL CERNER MILLENNIUM Est Glomerular Filtration Rate >60 >=60 CERNER MILLENNIUM Comment: The National Kidney Disease Education Program (NKDEP) has recommended all laboratories report estimated GFR (eGFR) along with plasma creatinine measurements to assist you with recognition of early kidney disease. Caveats: ??Plasma creatinine should be at steady-state (unchanged within the past week). For patients multiply eGFR by 1.2. The MDRD equation was developed using patients between the ages of 18 and 70 years. ?? The MDRD equation has not been validated for patients < 18 years of age and should not be used to assess renal function in the pediatric population. ??The MDRD eGFR equation will also overestimate the true GFR of patients above the age of 70. ??This overestimation is variable but increases with age. At present, NKDEP does NOT recommend using the MDRD equation for drug dosing purposes and pharmacists should continue to use their current dosing methods. In addition, numerical eGFR values greater than 60 ml/min/1.73 square meters should be treated as > 60, and not an exact number due to greater inaccuracies at these higher values. Per NKDEP, they classify normal renal function as any GFR >60ml/min/1.73 square meters; chronic kidney disease when GFR <60, and renal failure when GFR <15. ??This calculation may not be valid for patients with atypical muscle mass (very lean or obese), acute renal failure, and in patients with diabetic kidney disease. References: http://nkdep.nih.gov/resources/NKDEP_Suggestn4Labs_0606_508.pdf http://www.kidney.org/professionals/kls/pdf/faq_gfr.pdf Timothy K, Trinity NA, Emeterio AK, Biju TS, Jamila AD, Krishna AUDRA. Relative performance of the MDRD and CKD-EPI equations for estimating glomerular filtration rate among patients with varied clinical presentations. Clin J Am Soc Nephrol;6:1963-72. 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
--- OUTSIDE RECORDS SUMMARY | 2024-05-21 01:14 | XMS_ITS | Encounter Summary ---
Author Organization [facility] [place] [address] Care Team Providers Care Brush Filler Hand Name Role Phone JuanElke Alexa RUST Primary Care Provider [phone] Encounter Details Date Type Department Care Team (Late Contact Info) Description 01/31/2011 Orders Only Ne[place] [phone] Faye Maxwell MD [facility] [place] [address] CKD (chronic kidney disease) stage 3, GFR 30-59 ml/min (Primary Dx) Social History Tobacco Use Types [...] 9:00 AM EDT Office [place] [phone] Nighat López MD [facility] [place] [address] 05/28/2024 8:00 AM EDT Office Visit Hematology/Oncology at [address] [phone] Rodriguez Fowler MD [facility] [place] [address] Sherry Cedillo APRN [address] [place] [address] DR HEMATOLOGY AND ONCOLOGY [place], [place] [id number] 05/28/2024 8:30 AM EDT Infusion Hematology Oncology at [address] [phone] 05/28/2024 9:30 AM EDT Clinical Support Hematology/Oncology at [address] [phone] [address] [facility] DR HEMATOLOGY [place] [address] documented as of this encounter Results * Phosphorus (02/14/2011 10:02 AM EDT) Pathologist [facility] Phosphorus 2.9 2.5 - 4.5 mg/dL CERNER MILLENNIUM Blood specimen (specimen) 02/14/2011 10:02 AM EDT 02/14/2011 10:06 AM EDT Faye Maxwell MD CHEMISTRY ORDERABLES CERNER MILLENNIUM * (ABNORMAL) CBC (with Diff) (02/14/2011 10:02 AM EDT) Pathologist [facility] White Blood Cell 8.7 4.0 - 10.0 x10(3)/mc L CERNER MILLENNIUM Red Blood Cell 6.10(H) 4.63 - 6.08 x10(6)/mc L CERNER MILLENNIUM Hemoglobin 15.0 13.7 - 17.5 gm/dL CERNER MILLENNIUM Hematocrit 46.5 40.0 - 51.0 % CERNER MILLENNIUM Mean Cell Volume 76.2(L) 79.0 - 92.0 fL CERNER MILLENNIUM Mean Cell Hemoglobin 24.6(L) 25.6 - 32.2 pg CERNER MILLENNIUM Mean Cell Hemoglobin Concentration 32.3 32.0 - 36.5 gm/dL CERNER MILLENNIUM Platelet 178 145 - 370 x10(3)/mc L CERNER MILLENNIUM RDW Standard Deviation 41.0 35.0 - 46.0 fL CERNER MILLENNIUM RDW coefficient of variation 14.8(H) 10.9 - 14.4 % CERNER MILLENNIUM Mean Platelet Volume 10.9 9.0 - 12.0 fL CERNER MILLENNIUM Blood specimen (specimen) 02/14/2011 10:02 AM EDT 02/14/2011 10:06 AM EDT Faye Maxwell MD HEMATOLOGY ORDERABLE S CERNER MILLENNIUM * Basic Metabolic Panel (non-fasting) (02/14/2011 10:02 AM EDT) Glucose 93 60 - 199 mg/dL CERNER MILLENNIUM Comment:Diabetes: >=200 mg/d L plus symptoms Blood Urea Nitrogen 12 10 - 20 mg/dL CERNER MILLENNIUM Creatinine 1.03 0.80 - 1.50 mg/dL CERNER MILLENNIUM Sodium 140 135 - 145 mmol/L CERNER MILLENNIUM Potassium 4.1 3.5 - 5.0 mmol/L CERNER MILLENNIUM Comment: Please note: ??Patients with WBC >100,000 may have falsely elevated Potassium levels. ??For accurate Potassium quantification in these patients send serum separator tube (gold top) for subsequent determinations. ??Contact the Clinical Chemistry Laboratory if there are any questions. Chloride 103 98 - 107 mmol/L CERNER MILLENNIUM Carbon Dioxide 30 22 - 31 mmol/L CERNER MILLENNIUM Anion Gap 7 5 - 15 mmol/L CERNER MILLENNIUM Calcium 9.4 8.5 - 10.5 mg/dL CERNER MILLENNIUM Est Glomerular Filtration Rate >60 >=60 CERNER MILLENNIUM Comment: The National Kidney Disease Education Program (NKDEP) has recommended all laboratories report estimated GFR (eGFR) along with plasma creatinine measurements to assist you with recognition of early kidney disease. Caveats: ??Plasma creatinine should be at steady-state (unchanged within the past week). For patients multiply eGFR by 1.2.MDRD equation has not been validated for pediatric patients and is only valid for patients with age >= 18 years. At present, NKDEP does NOT recommend using [...] with diabetic kidney disease. References: http://nkdep.nih.gov/resources/NKDEP_Suggestn4Labs_0606_508.pdf http://www.kidney.org/professionals/kls/pdf/faq_gfr.pdf Blood specimen (specimen) 02/14/2011 10:02 AM EDT 02/14/2011 10:06 AM EDT Faye Maxwell MD CHEMISTRY ORDERABLES Performing Organization Address [facility] Co de Phone Number CRISTO MIGUEL * Albumin (02/14/2011 10:02 AM EDT) Albumin 4.1 3.2 - 5.2 gm/dL CRISTO MIGUEL Blood specimen (specimen) 02/14/2011 10:02 AM EDT 02/14/2011 10:06 AM EDT Faye Maxwell MD CHEMISTRY ORDERABLES Performing Organization Address City/[facility] Co de Phone Number MISTYDENA MIGUEL documented in this encounter Visit Diagnoses Diagnosis CKD (chronic kidney disease) stage 3, GFR 30-59 ml/min- Primary Chronic kidney disease, Stage III (moderate) documented in this encounter Care Teams Brush Filler Hand Relationship Specialty Start Date End Date Elke Martinez APRN [address] [place] [address] PCP - General 08/07/10 03/03/16 documented as of this encounter
--- OUTSIDE RECORDS SUMMARY | 2024-05-21 01:14 | XMS_ITS | Encounter Summary ---
Author Organization [facility] Address [facility] [place] [address] Care Team Providers Care Machine Set Up Operator Name Role Phone Dalton Olga Bell APRN Primary Care Provider [phone] Encounter Details Date Type Department Care Team (Late st Contact Info) Description 09/13/2008 Orders Only Nephrology [place] [address] Faye Maxwell MD [facility] [place] [address] Social History Tobacco Use Types Packs/Day Years Used Date Smoking Tobacco: Never Assessed Overall Financial Resource Strain (CARDIA) Answe r [...] 9:00 AM EDT Office Visit [place] [address] Nighat López MD [facility] [place] [address] 05/28/2024 8:00 AM EDT Office Visit Hematology/Oncology at [address] [phone] Rodriguez Fowler MD [facility] [place] [address] Sherry Cedillo APRN [address] [place] [address] DR HEMATOLOGY AND ONCOLOGY [place], [place] [phone] 05/28/2024 8:30 AM EDT Infusion Hematology Oncology at [address] [phone] 05/28/2024 9:30 AM EDT Clinical Support Hematology/Oncology at [address] [phone] [facility] DR HEMATOLOGY [place] [address] documented as of this encounter Procedures Procedure Name Priority Date/Time Associated Diagnosis Comments SURGICAL PATHOLOGY REPORT Routine 09/13/2008 11:25 AM EST documented in this encounter Results * Surgical Pathology Report (09/13/2008 11:25 AM EST) Pathologist [facility] Surgical Pathology Report [id number] ? Location: The signing pathologist has (i) examined the relevant preparation(s) for the specimen(s) and (ii) rendered or confirmed the diagnosis(es). . ?Pathology Surgical Pathology Final Report Clinical Information Specimen Submitted: A - [place] - kidney, formalin B - [place] - kidney, saline C - [place] - kidney, glutaraldehyde left Clinical History: 32-yr-old male with hemoproteinuria, creatinine = 1.4 Clinical Diagnosis: ? IgA nephropathy, ? FSGS, ? membranous Gross Description A - Labeled/Fixative: Labeled with the patient's name, formalin. Qty/Size/Weight: ?Two needle core biopsies, 0.8 x 0.1 cm and ?0.4 x 0.1 cm. Sections/Processing: ??(T1) B - Labeled/Fixative: Labeled with the patient's name, saline. Qty/Size/Weight: ?Two needle core biopsies, averaging 0.4 x 0.1 cm. Sections/Processing: ??Entirely frozen for immunofluorescent studies. C - Labeled/Fixative: Labeled with the patient's name, glutaraldehyde. Qty/Size/Weight: ?Single soft, shi-pink needle core biopsy, ?0.4 x 0.1 cm. Sections/Processing: ??Entirely submitted for electron microscopy studies. ?aje/SNS Microscopic Description LIGHT MICROSCOPY ?? The biopsy consists of two cores of renal cortex measuring 0.8 cm and 0.4 cm in length. ??Up to 16 glomeruli are present. ??None are globally sclerotic. ??A couple show periglomerular fibrosis. ??The PAS stain shows rigid, thickened capillary [place]. ??The methenamine silver stain shows numerous small irregularities and spike- like projections in the basement membranes. ??Small perforations are evident in en face sections of the basement membranes. ??There is no increased cellularity, crescents, synechial adhesions, or segmental sclerosis. ??Mesangial regions are minimally expanded. ??The trichrome stain shows minimal interstitial fibrosis. ??No interstitial inflammatory infiltration is evident. ??Tubules are closely packed, without dilatation or inflammation. ??A few small hyalin or granular casts are present. ??A few tubules are mildly atrophic, with thickened tubular basement membranes. ??No significant vacuolization or granularity is present in tubular epithelial cells. ??Interlobular arteries are unremarkable, without inflammation, hyalinization, narrowing, or thromboemboli. ??The [place] red stain for amyloid is negative. IMMUNOFLUORESCENCE ?? Evaluable glomeruli: ??up to 8 ?? IgG: ??3+ finely granular peripheral staining; 4+ casts ?? C3: ?? 2+ finely granular peripheral staining ?? C1q: ??Negative ?? IgA: ??Negative glomerular staining; 4+ casts . Microscopic Description ?? IgM: ??Negative ?? Fibrinogen: ??Negative ?? Albumin: ??Negative ?? [place]: ?1+ finely granular peripheral staining ?? Lambda: ?? 2+ finely granular peripheral staining ELECTRON MICROSCOPY ?? Glomeruli evaluated: ??3 ?? Capillary [place] are markedly thickened. ??Numerous, faint, pale-staining, finely granular deposits are present entirely incorporated within thickened, remodelled glomerular basement membranes. ??There is effacement of epithelial cell foot processes in many capillary loops. ??Epithelial cells are focally swollen. Endothelial cells are unremarkable. ??Only a rare mesangial deposit is identified. Diagnosis Kidney, needle biopsy: ?? Membranous glomerulopathy, stage IV. CR-0 09/14/08 JLK 09/26/08 Verified by: ? Tyrell Carlin MD ?Pathologist ?(Electronic Signature) The attending pathologist whose signature appears on this report has reviewed all diagnostic slides and has edited the gross and/or microscopic portion of the report in rendering the final pathologic diagnosis. [facility] 09/13/2008 11:2 5 AM EST Faye Maxwell MD PATHOLOGY/CYTOLOGY Yoel GRANGER Performing Organization Address City/State/[facility] Co de Phone Number [facility] documented in this encounter Visit Diagnoses Not on filedocumented in this encounter Care Teams Machine Set Up Operator Relationship Specialty Start Date End Date Olga Hoffman APRN [address] [place] [address] PCP - General Family Medicine 10/30/22 documented as of this encounter
--- OUTSIDE RECORDS SUMMARY | 2024-05-21 01:14 | XMS_ITS | Encounter Summary ---
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) Social History Tobacco Use Types [...] 9:00 AM EDT Office Visit [place] [address] Nighat López MD [facility] [place] [address] 05/28/2024 8:00 AM EDT Office Visit Hematology/Oncology at [address] [phone] Rodriguez Fowler MD [facility] [place] [address] Sherry Cedillo APRN [address] [place] [address] DR HEMATOLOGY AND ONCOLOGY [place], [place] [id number] 05/28/2024 8:30 AM EDT Infusion Hematology Oncology at [address] [phone] 05/28/2024 9:30 AM EDT Clinical Support Hematology/Oncology at [address] [phone] [facility] DR [place] [address] Scheduled Orders Name Type Priority Associated Diagnoses Orde r Schedule Basic Metabolic Panel (non-fasting) Lab Routine Nephrotic Syndrome With Diffuse Membranous Glomerulonephritis Expected: 05/27/2012 (Approximate), Expires: 08/25/2012 Albumin Level Lab Routine Nephrotic Syndrome With Diffuse Membranous Glomerulonephritis Expected: 05/27/2012 (Approximate), Expires: 08/25/2012 documented as of this encounter Results * (ABNORMAL) CBC (with Diff) (05/27/2012 1:08 [...] Lab Faye Maxwell MD HEMATOLOGY ORDERABLE S CRISTO MIGUEL documented in this encounter Visit Diagnoses Diagnosis 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
--- OUTSIDE RECORDS SUMMARY | 2024-05-21 01:14 | XMS_ITS | Encounter Summary ---
Author Organization [facility] Address [facility] [place] [address] Care Team Providers Care Dehorner Name Role Phone Jyoti Martinez APRN Primary Care Provider [phone] Encounter Details Date Type Department Care Team (Late st Contact Info) Description 05/11/2014 4:30 PM EDT Follow-Up Nephrology [place] [address] Faye Maxwell MD [facility] [place] [address] CKD (chronic kidney disease) stage 3, GFR 30-59 ml/min (Primary Dx); Persistent proteinuria; Morbid obesity with BMI of 45.0-49.9, adult; Obstructive sleep apnea (adult) (pediatric) Discharge Disposition: Home Social History Tobacco Use Types Packs/Day Years Used Date Smoking Tobacco: Never Smokeless Tobacco: Never Sex and Gender Information Value Date Recorded Sex Assigned at Not on file Gender Identity Not on file Sexual Orientation Not on file documented as of this encounter Last Filed Vital Signs Vital Sign Reading Time Taken Comments Blood Pressure 124/81 05/11/2014 4:09 PM EDT Pulse 91 05/11/2014 4:09 PM EDT Temperature - - Respiratory Rate 20 05/11/2014 4:09 PM EDT Oxygen Saturation 92% 05/11/2014 4:09 PM EDT Inhaled Oxygen Concentration - - Weight 169.5 kg (373 lb 9.6 oz) 05/11/2014 4:09 PM EDT Height 188 cm (6' 2) 05/11/2014 4:09 PM EDT Body Mass Index 47.97 05/11/2014 4:09 PM EDT documented in this encounter Progress Notes * Faye Maxwell MD - 05/11/2014 4:41 PM EDT I had the pleasure of seeing your patient Charles Nickin the Renal and Hypertension clinic Charles Nick 1975 [id number] Chief Complaint: This is a followup visit to the Renal and Hypertension clinic for this 38 y.o. 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 He underwent biopsy in 2007 at [facility] which showedresolving membranous GN. Currently in remission. Relevant comorbidities ?? Morbid obesity ?? Hyperglycemia: Noted this visit. No formal [...] NSAIDs Reports his father, who lives in [place], has proteinuria and edema. Father is not diabetic. Most recent serum creatinine: 1.07 mg/dl Most recent eGFR > 60 Ml/min Most recent spot urine protein: creatinine ratio 0.4 Stable (approximates urinary protein in grams per 24h) Serum albumin 3.9 g/dl Stable Patient Active Problem List Diagnosis Code ??? CKD (chronic kidney disease) stage 3, GFR 30-59 ml/min 585.3 ??? Obesity 278.00 Medications No current outpatient prescriptions on file prior to visit. Non-steroidal anti-inflammatory medications: None Past Medical History, Family and Social History Reviewed in [facility]IS and/or paper chart Current Diet: regular Current excercise: none Review of Systems: Unchanged since visit except as noted above Physical Exam Charles Nick is a morbidly obese male who appears well Filed Vitals: 05/11/14 1609 BP: 124/81 Pulse: 91 Resp: 20 Height: 188 cm (6' 2) Weight: 169.464 kg (373 lb 9.6 oz) SpO2: 92% Previous weight 159.7 kg BMI 48.1 The oropharynx and neck are unremarkable There is no peripheral edema to mid huff and no sacral edema. The chest is clear to auscultation. Three is no JVD The heart sound are S1 plus S2 with no rubs, murmurs or gallops. The abdomen is obese Urinalysis: Dipstick negative for blood, 100 protein Urine microscopy: occasional RTE cell, otherwise no cells casts or crystals Laboratory [...] sleep apnea recently diagnosed. 3. Morbid obesity. Mr. Kauffman feels that the significant improvement that he has experienced following initiation of continuous positive airway pressure will allow him to begin to tackle his weight 4. Nonfasting hyperglycemia. is at risk for type 2 diabetes. Recommend glucose tolerance test. If positive would consider early initiation of hypoglycemic agents, continuation of SHELBY inhibitor, and aggressive approach to weight loss. Please see my letter to the patient. 5. Anxiety and depression have been improved recently. There is no renal contraindication to antidepressant or anti-anxiety medication and that renal dose adjustment is not indicated in his case 6. Followup visit: 12 months with labs. Labs ordered via eDH Thank you for involving me in the care of this interesting patient CC: JYOTI MARTINEZ APRN @[email or web address] documented in this encounter Plan of Treatment Upcoming Encounters Date Type Department Care Team (Late st Contact Info) Description 05/21/2024 9:00 AM EDT Office Visit [place] [address] Nighat López MD [facility] [place] [address] 05/28/2024 8:00 AM EDT Office Visit Hematology/Oncology at [address] [phone] Rodriguez Fowler MD [facility] [place] [address] Sherry Cedillo APRN [address] [place] [address] DR HEMATOLOGY AND ONCOLOGY [place], [place] [id number] 05/28/2024 8:30 AM EDT Infusion Hematology Oncology at [address] [phone] 05/28/2024 9:30 AM EDT Clinical Support Hematology/Oncology at [address] [phone] [address] [facility] [place] [address] documented as of this encounter Procedures Procedure Name Priority Date/Time Associated Diagnosis Comments HEMOGRAM STAT 05/11/2014 5:05 PM EDT CKD (chronic kidney disease) stage 3, GFR 30-59 ml/min Persistent proteinuria Morbid obesity with BMI of 45.0-49.9, adult Obstructive sleep apnea (adult) (pediatric) DIFFERENTIAL, AUTOMATED STAT 05/11/2014 5:05 PM EDT CKD (chronic kidney disease) stage 3, GFR 30-59 ml/min Persistent proteinuria Morbid obesity with BMI of 45.0-49.9, adult Obstructive sleep apnea (adult) (pediatric) CBC (WITH DIFF) STAT 05/11/2014 5:05 PM EDT CKD (chronic kidney disease) stage 3, GFR 30-59 ml/min Persistent proteinuria Morbid obesity with BMI of 45.0-49.9, adult Obstructive sleep apnea (adult) (pediatric) PHOSPHORUS STAT 05/11/2014 5:05 PM EDT CKD (chronic kidney disease) stage 3, GFR 30-59 ml/min Persistent proteinuria Morbid obesity with BMI of 45.0-49.9, adult Obstructive sleep apnea (adult) (pediatric) ALBUMIN LEVEL STAT 05/11/2014 5:05 PM EDT CKD (chronic kidney disease) stage 3, GFR 30-59 ml/min Persistent proteinuria Morbid obesity with BMI of 45.0-49.9, adult Obstructive sleep apnea (adult) (pediatric) BASIC METABOLIC PANEL STAT 05/11/2014 5:05 PM EDT CKD (chronic kidney disease) stage 3, GFR 30-59 ml/min Persistent proteinuria Morbid obesity with BMI of 45.0-49.9, adult Obstructive sleep apnea (adult) (pediatric) PROTEIN/CREATININE RATIO, URINE Routine 05/11/2014 4:15 PM EDT CKD (chronic kidney disease) stage 3, GFR 30-59 ml/min Persistent proteinuria Morbid obesity with BMI of 45.0-49.9, adult Obstructive sleep apnea (adult) (pediatric) documented in this encounter Results * (ABNORMAL) Protein/Creatinine Ratio, urine (07/13/2015 3:17 PM EDT) Creatinine, Urine 163 mg/dL [facility] MILLENNIUM Protein, Urine 135(H) 0 - 12 mg/dL [facility] MILLENNIUM Protein / Creatinine Ratio, Urine 0.8 ratio [facility] MILLENNIUM Urine specimen (specimen) 07/13/2015 3:17 PM EDT 07/13/2015 3:21 PM EDT Narrative Resulting Agency Comment Spec In Lab Faye Maxwell MD URINE ORDERABLES [facility] [employer] * Basic Metabolic Panel (non-fasting) (07/13/2015 3:13 [...] the following links into your internet browser. [email or web address] Blood specimen (specimen) 07/13/2015 3:13 PM EDT 07/13/2015 3:19 PM EDT Narrative Resulting Agency Comment Spec In Lab Faye Maxwell MD CHEMISTRY ORDERABLES [facility] MILLENNIUM * (ABNORMAL) Differential, Automated (05/11/2014 5:05 PM EDT) Neutrophil % 75.6(H) 34.0 - 71.0 % [facility] MILLENNIUM Neutrophil Absolute 8.69(H) 1.50 - 6.30 x10(3)/mc L [facility]ILL[facility] Lymph % 17.5(L) 19.0 - 53.0 % [facility]ILL[facility] Lymphocytes Abs 2.0 1.0 - 3.6 x10(3)/mc L [facility]ILLENNIUM Monocyte % 5.2 4.0 - 13.0 % [facility] MILLENNIUM Monocyte Abs 0.6 0.2 - 1.0 x10(3)/mc L [facility]ILLENNI[facility] Eos % 1.1 0.0 - 7.0 % [facility]ILLENNIUM Eosinophils Abs 0.1 0.0 - 0.5 x10(3)/mc L [facility] MILLENNIUM Basophil % 0.3 0.0 - 2.0 % [facility] MILLENNIUM Baso Absolute 0.0 0.0 - 0.2 x10(3)/mc L [facility] MILLENNIUM Immature Gran % 0.30 0.00 - 0.66 % [facility] MILLENNIUM Comment: Immature granulocytes(IG's)percentage and absolute count will include metamyelocytes, myelocytes, and promyelocytes. Blood smears from CBCs yielding IG's will be scanned manually for concordance. If this scan disagrees with the automated IG or if promyelocytes are noted, a manual differential will be performed. Immature Gran Absolute 0.03 0.00 - 0.05 x10(3)/mc L [facility] MILLENNIUM Blood specimen (specimen) 05/11/2014 5:05 PM EDT 05/11/2014 5:20 PM EDT Narrative Resulting Agency Comment Spec In Lab Faye Maxwell MD HEMATOLOGY ORDERABLE S C[facility]STO ESCOBARIUM * (ABNORMAL) Hemogram (05/11/2014 5:05 PM EDT) White Blood Cell 11.5(H) 4.0 - 10.0 x10(3)/mc L [facility] MILLENNIUM Red Blood Cell 5.93 4.63 - 6.08 x10(6)/mc L [facility] MILLENNIUM Hemoglobin 15.7 13.7 - 17.5 gm/dL [facility] MILLENNIUM Hematocrit 47.0 40.0 - 51.0 % [facility] MILLENNIUM Mean Cell Volume 79.3 79.0 - 92.0 fL [facility] MILLENNIUM Mean Cell Hemoglobin 26.5 25.6 - 32.2 pg [facility] MILLENNIUM Mean Cell Hemoglobin Concentration 33.4 32.0 - 36.5 gm/dL [facility] MILL[facility]UM Platelet 173 145 - 370 x10(3)/mc L [facility] MILLENNIUM RDW Standard Deviation 42.6 35.0 - 46.0 fL [facility] MILLENNIUM RDW coefficient of variation 14.8(H) 10.9 - 14.4 % [facility] MILLENNIUM Mean Platelet Volume 11.2 9.0 - 12.0 fL [facility]ILL[facility] Blood specimen (specimen) 05/11/2014 5:05 PM EDT 05/11/2014 5:20 PM EDT Narrative Resulting Agency Comment Spec In Lab Faye Maxwell MD HEMATOLOGY ORDERABLE S Performing Organization Address [facility] de Phone Number [facility] * Phosphorus (05/11/2014 5:05 PM EDT) Phosphorus 2.7 2.5 - 4.5 mg/dL [facility] Blood specimen (specimen) 05/11/2014 5:05 PM EDT 05/11/2014 5:20 PM EDT Narrative Resulting Agency Comment Spec In Lab Faye Maxwell MD CHEMISTRY ORDERABLES Performing Organization Address [facility] de Phone Number [facility] * Basic Metabolic Panel (non-fasting) (05/11/2014 5:05 PM EDT) Glucose 193 60 - 199 mg/dL [facility] Comment:Diabetes: >=200 mg/d L plus symptoms Blood Urea Nitrogen 13 10 - 20 mg/dL [facility] Creatinine 1.07 0.80 - 1.50 mg/dL [facility] MILLENNIUM Comment: Please note that the pediatric reference intervals supplied above were not validated at [facility]. Results from pediatric patients should be interpreted in conjunction to the patient's age, height and muscle mass. Sodium 135 135 - 145 mmol/L [facility] Potassium 3.7 3.5 - 5.0 mmol/L [facility] Comment: Please note: ??Patients with WBC >100,000 may have falsely elevated Potassium levels. ??For accurate Potassium quantification in these patients send serum separator tube (gold top) for subsequent determinations. ??Contact the Clinical Chemistry Laboratory if there are any questions. Chloride 98 98 - 107 mmol/L [facility] MILLENNIUM Carbon Dioxide 26 22 - 31 mmol/L [facility] MILLENNIUM Anion Gap 11 5 - 15 mmol/L [facility] MILLENNIUM Calcium 9.2 8.5 - 10.5 mg/dL [facility] MILLENNIUM Est [...] the following links into your internet browser. [email or web address] Blood specimen (specimen) 05/11/2014 5:05 PM EDT 05/11/2014 5:20 PM EDT Narrative Resulting Agency Comment Spec In Lab Faye Maxwell MD CHEMISTRY ORDERABLES [facility] ESC[facility]AR[facility] * Albumin Level (05/11/2014 5:05 PM EDT) Albumin 3.9 3.2 - 5.2 gm/dL [facility] MILLENNIUM Blood specimen (specimen) 05/11/2014 5:05 PM EDT 05/11/2014 5:20 PM EDT Narrative Resulting Agency Comment Spec In Lab Faye Maxwell MD CHEMISTRY ORDERABLES [facility] ESCOBARIUM * (ABNORMAL) Protein/Creatinine Ratio, urine (05/11/2014 4:15 PM EDT) Creatinine, Urine 190 mg/dL [facility] MILLENNIUM Protein, Urine 76(H) 0 - 12 mg/dL [facility] MILLENNIUM Protein / Creatinine Ratio, Urine 0.4 ratio CRISTO MIGUEL Urine specimen (specimen) 05/11/2014 4:15 PM EDT 05/11/2014 5:11 PM EDT Narrative Resulting Agency Comment Spec In Lab Faye Maxwell MD URINE ORDERABLES CRISTO MIGUEL documented in this encounter Visit Diagnoses Diagnosis CKD (chronic kidney disease) stage 3, GFR 30-59 ml/min- Primary Chronic kidney disease, Stage III (moderate) Persistent proteinuria Proteinuria Morbid obesity with BMI of 45.0-49.9, adult Morbid obesity Obstructive sleep apnea (adult) (pediatric) documented in this encounter Care Teams Dehorner Relationship Specialty Start Date End Date Jyoti Martinez APRN [address] [place] [address] PCP - General 08/07/10 03/03/16 documented as of this encounter
--- OUTSIDE RECORDS SUMMARY | 2024-05-21 01:14 | XMS_ITS | Encounter Summary ---
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 Discharge Disposition: Home Social History Tobacco Use Types Packs/Day Years Used Date Smoking Tobacco: Never Assessed Sex and Gender Information Value Date Recorded Sex Assigned at Not on file Gender Identity Not on file Sexual Orientation Not on file documented as of this encounter Last Filed Vital Signs Vital Sign Reading Time Taken Comments Blood Pressure 129/64 02/14/2011 11:13 AM EDT Pulse 68 02/14/2011 11:13 AM EDT Temperature - - Respiratory Rate - - Oxygen Saturation - - Inhaled Oxygen Concentration - - Weight 152 kg (335 lb) 02/14/2011 11:13 AM EDT Height - - Body Mass Index - - documented in this encounter Progress Notes * Faye Maxwell MD - 02/14/2011 3:46 PM EDT I had the pleasure of seeing your patient Charles Nick in the Renal and Hypertension clinic Charles Nick 1975 [id number] Chief Complaint: This is a followup visit to the Renal and Hypertension clinic for this 35 y.o. year old woman with a diagnosis of biopsy-proven membranous glomerulopathy presenting with NS and intermittent gross hematuria in 2002. He was not treated with immunosupression[place] 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 He has not been taking his medications. Home BPs have been in the range 120-130 systolic. He has had no edema. No urinary symptoms. Medications Non-steroidal anti-inflammatory medications: None Reviewed See above Past Medical History, Family and Social History Reviewed in [facility] and/or paper chart: is with their 4th child. 3 year old son is autistic and is here for visit today. Family signs with him. Current Diet: regular Current excercise: none scheduled Current Tobacco: none Curent Alcohol: occasional social Review of Systems: Unchanged since visit except as noted above Physical Exam Mr Nick appears well Filed Vitals: 02/14/11 1113 BP: 129/64 Pulse: 68 Weight: 151.955 kg (335 lb) The oropharynx and neck are unremarkable There is no peripheral and no sacral edema. There is symmetrical gynaecomastia The chest is clear to auscultation. The heart sound are S1 plus S2 with no rubs, murmurs or gallops. Urinalysis: Dipstick negative for blood, 100 protein Urine microscopy: no cells casts or crystals Laboratory and other data: Reviewed see eDH. Notable for: Improvementins serum cratinine. Study repeated to confirm Radiology studies reviewed> None Diagnosis, Medical decision making and Recommendations: 1. Membranous nephropathy likley in remission 2. Will check P:C ratio, May need to resume ACEI 3. Followup visit: 12 months with labs. Labs ordered via eDH Thank you for involving me in the care of this interesting patient CC: ELKE MARTINEZ APRN [address] [facility] [address] documented in this encounter Plan of Treatment Upcoming Encounters Date Type Department Care Team (Late st Contact Info) Description 05/21/2024 9:00 AM EDT Office [place] [address] Nighat López MD [facility] [address] [place] [address] 05/28/2024 8:00 AM EDT Office Visit Hematology/Oncology at [address] [phone] Rodriguez Fowler MD [facility] [place] [place] [address] Sherry Cedillo [address] HEMATOLOGY AND ONCOLOGY [place], [place] [phone] 05/28/2024 8:30 AM EDT Infusion Hematology Oncology at [address] [phone] 05/28/2024 9:30 AM EDT Clinical Support Hematology/Oncology at [address] [phone] [facility] [address] HEMATOLOGY [place] [address] documented as of this encounter Procedures Procedure Name Priority Date/Time Associated Diagnosis Comments PROTEIN/CREATININE RATIO, URINE Routine 02/14/2011 2:15 PM EDT CKD (chronic kidney disease) stage 3, GFR 30-59 ml/min Hypertension ALBUMIN LEVEL Routine 02/14/2011 12:21 PM EDT CKD (chronic kidney disease) stage 3, GFR 30-59 ml/min BASIC METABOLIC PANEL Routine 02/14/2011 12:21 PM EDT CKD (chronic kidney disease) stage 3, GFR 30-59 ml/min DIFFERENTIAL, AUTOMATED STAT 02/14/2011 10:02 AM EDT CBC (WITH DIFF) STAT 02/14/2011 10:02 AM EDT CKD (chronic kidney disease) stage 3, GFR 30-59 ml/min PHOSPHORUS STAT 02/14/2011 10:02 AM EDT CKD (chronic kidney disease) stage 3, GFR 30-59 ml/min ALBUMIN LEVEL STAT 02/14/2011 10:02 AM EDT CKD (chronic kidney disease) stage 3, GFR 30-59 ml/min BASIC METABOLIC PANEL STAT 02/14/2011 10:02 AM EDT CKD (chronic kidney disease) stage 3, GFR 30-59 ml/min documented in this encounter Results * (ABNORMAL) Protein / creatinine ratio, urine (05/27/2012 1:14 PM EDT) Creatinine, Urine 210 mg/dL CERNER MILLENNIUM Protein, Urine 122(H) 0 - 12 mg/dL CERNER MILLENNIUM Protein / Creatinine Ratio, Urine 0.6 ratio CERNER MILLENNIUM Urine specimen (specimen) 05/27/2012 1:14 PM EDT 05/27/2012 1:19 PM EDT Narrative Resulting Agency Comment Spec In Lab Faey Maxwell MD URINE ORDERABLES [facility] * Albumin (05/27/2012 1:08 PM EDT) Albumin 3.9 3.2 - 5.2 gm/dL CRISTO MILLPAMIUM Blood specimen (specimen) 05/27/2012 1:08 PM EDT 05/27/2012 1:16 PM EDT Narrative Resulting Agency Comment Spec In Lab Faye Maxwell MD CHEMISTRY ORDERABLES CERDENA LIENNIUM * Basic metabolic panel (05/27/2012 1:08 PM EDT) Glucose 94 60 - 199 mg/dL CERNER MILLENNIUM Comment:Diabetes: >=200 mg/d L plus symptoms Blood Urea Nitrogen 11 10 - 20 mg/dL CERNER MILLENNIUM Creatinine 0.97 0.80 - 1.50 mg/dL CERNER MILLENNIUM Comment: Please note that the pediatric reference intervals supplied above were not validated at [facility]. Results from pediatric patients should be interpreted in conjunction to the patient's age, height and muscle mass. Sodium 140 135 - 145 mmol/L CERNER MILLENNIUM Potassium 3.8 3.5 - 5.0 mmol/L [...] Organization Address [facility] Co de Phone Number CRISTO Pick a StudentENNIUM * (ABNORMAL) Protein/Creatinine Ratio, urine (02/14/2011 2:15 PM EDT) Creatinine, Urine 134 mg/dL CERNER MILLENNIUM Protein, Urine 65(H) 0 - 12 mg/dL CERNER MILLENNIUM Protein / Creatinine Ratio, Urine 0.5 ratio CERNER MILLENNIUM Urine specimen (specimen) 02/14/2011 2:15 PM EDT 02/14/2011 3:00 PM EDT Faye Maxwell MD URINE ORDERABLES CRISTO Pick a StudentENNIUM * Albumin (02/14/2011 12:21 PM EDT) Albumin 4.2 3.2 - 5.2 gm/dL CERNER MILLENNIUM Blood specimen (specimen) 02/14/2011 12:21 PM EDT 02/14/2011 12:36 PM EDT Faye Maxwell MD CHEMISTRY ORDERABLES CERNER MILLENNIUM * Basic metabolic panel (02/14/2011 12:21 PM EDT) Glucose 103 60 - 199 mg/dL CERNER MILLENNIUM Comment:Diabetes: >=200 mg/d L plus symptoms Blood Urea Nitrogen 13 10 - 20 mg/dL CERNER MILLENNIUM Creatinine 1.06 0.80 - 1.50 mg/dL CERNER MILLENNIUM Sodium 140 135 - 145 mmol/L CERNER MILLENNIUM Potassium 4.0 3.5 - 5.0 mmol/L CERNER MILLENNIUM Comment: Please note: ??Patients with WBC >100,000 may have falsely elevated Potassium levels. ??For accurate Potassium quantification in these patients send serum separator tube (gold top) for subsequent determinations. ??Contact the Clinical Chemistry Laboratory if there are any questions. Chloride 104 98 - 107 mmol/L CERNER MILLENNIUM Carbon Dioxide 28 22 - 31 mmol/L CERNER MILLENNIUM Anion Gap 8 5 - 15 mmol/L CERNER MILLENNIUM Calcium 9.8 8.5 - 10.5 mg/dL CERNER MILLENNIUM Est [...] References: http://nkdep.nih.gov/resources/NKDEP_Suggestn4Labs_0606_508.pdf http://www.kidney.org/professionals/kls/pdf/faq_gfr.pdf Blood specimen (specimen) 02/14/2011 12:21 PM EDT 02/14/2011 12:36 PM EDT Faye Maxwell MD CHEMISTRY ORDERABLES CERNER MILLENNIUM * REFLEX LAB-A-DIFF (02/14/2011 10:02 AM EDT) Neutrophil % 68.0 34.0 - 71.0 % CERNER MILLENNIUM Neutrophil Absolute 5.89 1.50 - 6.30 x10(3)/mcL CERNER MILLENNIUM Lymph % 22.7 19.0 - 53.0 % CERNER MILLENNIUM Lymphocytes Abs 2.0 1.0 - 3.6 x10(3)/mcL CERNER MILLENNIUM Monocyte % 6.6 4.0 - 13.0 % CERNER MILLENNIUM Monocyte Abs 0.6 0.2 - 1.0 x10(3)/mcL CERNER MILLENNIUM Eos % 2.1 0.0 - 7.0 % CERNER MILLENNIUM Eosinophils Abs 0.2 0.0 - 0.5 x10(3)/mcL CERNER MILLENNIUM Basophil % 0.3 0.0 - 2.0 % CERNER MILLENNIUM Baso Absolute 0.0 0.0 - 0.2 x10(3)/mcL CERNER MILLENNIUM Immature Gran % 0.30 0.00 - 0.66 % CERNER MILLENNIUM Comment: Immature granulocytes(IG's)percentage and absolute count will include metamyelocytes, myelocytes, and promyelocytes. Blood smears from CBCs yielding IG's will be scanned manually for concordance. If this scan disagrees with the automated IG or if promyelocytes are noted, a manual differential will be performed. Immature Gran Absolute 0.03 0.00 - 0.05 x10(3)/mcL CERNER MILLENNIUM Blood specimen (specimen) 02/14/2011 10:02 AM EDT 02/14/2011 10:06 AM EDT Faye Maxwell MD HEMATOLOGY ORDERABLE S CERNER JENENNIUM * Phosphorus (02/14/2011 10:02 AM EDT) Phosphorus 2.9 2.5 - 4.5 mg/dL CERNER MILLENNIUM Blood specimen (specimen) 02/14/2011 10:02 AM EDT 02/14/2011 10:06 AM EDT Faye Maxwell MD [facility]STRY [facility]ABLES [facility] * (ABNORMAL) CBC (with Diff) (02/14/2011 10:02 AM EDT) White Blood Cell 8.7 4.0 - [...] AM EDT Faye Maxwell MD CHEMISTRY ORDERABLES CRISTO MIGUEL * Albumin (02/14/2011 10:02 AM EDT) Albumin 4.1 3.2 - 5.2 gm/dL CRISTO MIGUEL Blood specimen (specimen) 02/14/2011 10:02 AM EDT 02/14/2011 10:06 AM EDT Faye Maxwell MD CHEMISTRY ORDERABLES MISTYDENA MIGUEL documented in this encounter Visit Diagnoses Diagnosis CKD (chronic kidney disease) stage 3, GFR 30-59 ml/min- Primary Chronic kidney disease, Stage III (moderate) Hypertension Unspecified essential hypertension 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
[2024-05-28] MEDS: Normal Saline Flush 10 ML SYR IVP (07:30)
[2024-05-28 08:14] LABS: Abs Immature Grans 0.02 10^3/uL (0.0-0.06); Absolute Basophil Count 0.05 10^3/uL (0.0-0.2); Absolute Eosinophil Count 0.18 10^3/uL (0.0-0.7); Absolute Lymphocyte Count 1.26 10^3/uL (1.2-3.4); Absolute Monocyte Count 0.34 10^3/uL (0.1-0.8); Absolute Neutrophil Count 5.64 10^3/uL (1.2-6.7); Basophils % 0.7 %; Eosinophils % 2.4 %; HCT 42.1 % (40.0-50.0); Immature Grans % 0.3 %; Lymphocytes % 16.8 %; MCH 23.7 pg (27.0-33.0); MCHC 30.9 % (32.0-36.0); MCV 77 fL (80-95); MPV 10.5 fL (8.0-11.0); Monocytes % 4.5 %; Neutrophils % 75.3 %; Platelet Count 246 10^3/uL (130-400); RBC 5.49 10^6/uL (4.36-5.78); RDW 15.2 % (11.8-14.1); WBC 7.49 10^3/uL (4.4-10.8)
[2024-05-28 08:29] LABS: ALT 24 U/L (16-63); AST 16 U/L (15-37); Alkaline Phosphatase 114 U/L (46-116); Anion Gap 8.3 mmol/L (3-11); BUN 13 mg/dL (7-18); Bilirubin, Total 0.31 mg/dL (0.2-1.0); CO2 29.7 mmol/L (21.0-32.0); CREATININE 0.9 mg/dL (0.70-1.30); Calcium 8.7 mg/dL (8.5-10.1); Chloride 101 mmol/L (98-107); Glucose 251 mg/dL (74-106); Potassium 3.7 mmol/L (3.5-5.1); Sodium 139 mmol/L (136-145); Total Protein 7.1 g/dL (6.4-8.2)
[2024-05-30] MEDS: Normal Saline Flush 10 ML SYR IVP (10:01)
[2024-06-11 09:23] LABS: Abs Immature Grans 0.03 10^3/uL (0.0-0.06); Absolute Basophil Count 0.04 10^3/uL (0.0-0.2); Absolute Eosinophil Count 0.15 10^3/uL (0.0-0.7); Absolute Lymphocyte Count 1.36 10^3/uL (1.2-3.4); Absolute Monocyte Count 0.34 10^3/uL (0.1-0.8); Absolute Neutrophil Count 4.03 10^3/uL (1.2-6.7); Basophils % 0.7 %; Eosinophils % 2.5 %; HCT 37.9 % (40.0-50.0); Immature Grans % 0.5 %; Lymphocytes % 22.9 %; MCH 23.5 pg (27.0-33.0); MCHC 31.7 % (32.0-36.0); MCV 74 fL (80-95); MPV 10.3 fL (8.0-11.0); Monocytes % 5.7 %; Neutrophils % 67.7 %; Platelet Count 236 10^3/uL (130-400); RDW 15.4 % (11.8-14.1); RDW-SD 40.7 fL; WBC 5.95 10^3/uL (4.4-10.8)
[2024-06-11 09:39] LABS: Diff Comment RBC Morph Reviewed; Hypochromasia 2+; Microcytosis 1+
[2024-06-11 10:21] LABS: ALT 25 U/L (16-63); AST 17 U/L (15-37); Albumin 2.8 g/dL (3.4-5.0); Alkaline Phosphatase 96 U/L (46-116); Anion Gap 7.9 mmol/L (3-11); BUN 7 mg/dL (7-18); Bilirubin, Total 0.35 mg/dL (0.2-1.0); CO2 29.1 mmol/L (21.0-32.0); Calcium 8.5 mg/dL (8.5-10.1); Chloride 102 mmol/L (98-107); Estimated GFR 92.26 (mL/min/1.73m2); Glucose 195 mg/dL (74-106); Potassium 3.3 mmol/L (3.5-5.1); Sodium 139 mmol/L (136-145); Total Protein 6.4 g/dL (6.4-8.2)
[2024-06-11 18:07] LABS: CEA 1.9 ng/mL (See Note)
[2024-06-13] MEDS: Normal Saline Flush 10 ML SYR IVP (13:15)
== END 2024-06-14 23:59 | disposition home or self-care (01) ==
LOC: INF 00:22
PROVIDERS: PCP Nurse Practitioner Family; Visit Provider Internal Medicine Hematology & Oncology
DX: C17.0 Malignant neoplasm of duodenum (principal)
CPT/HCPCS: 36591; 80053; 96523; 82378; 85025

== ENCOUNTER 2024-07-09 00:39 | Outpatient (RCR) | payer OTHER, SELFPAY ==
[2024-06-25] MEDS: Normal Saline Flush 10 ML SYR IVP (08:53)
[2024-06-25 08:58] LABS: Abs Immature Grans 0.02 10^3/uL (0.0-0.06); Absolute Basophil Count 0.06 10^3/uL (0.0-0.2); Absolute Eosinophil Count 0.13 10^3/uL (0.0-0.7); Absolute Lymphocyte Count 1.58 10^3/uL (1.2-3.4); Absolute Neutrophil Count 5.78 10^3/uL (1.2-6.7); Basophils % 0.7 %; Eosinophils % 1.6 %; HCT 41.1 % (40.0-50.0); HGB 12.8 g/dL (13.5-17.5); Immature Grans % 0.2 %; Lymphocytes % 19.6 %; MCH 23.1 pg (27.0-33.0); MCHC 31.1 % (32.0-36.0); MCV 74 fL (80-95); MPV 9.8 fL (8.0-11.0); Monocytes % 6.2 %; Neutrophils % 71.7 %; Platelet Count 213 10^3/uL (130-400); RBC 5.55 10^6/uL (4.36-5.78); RDW 15.5 % (11.8-14.1); RDW-SD 40.1 fL; WBC 8.07 10^3/uL (4.4-10.8)
[2024-06-25 09:19] LABS: ALT 26 U/L (16-63); AST 16 U/L (15-37); Albumin 2.9 g/dL (3.4-5.0); Alkaline Phosphatase 108 U/L (46-116); Anion Gap 6.4 mmol/L (3-11); BUN 9 mg/dL (7-18); Bilirubin, Total 0.51 mg/dL (0.2-1.0); CO2 31.6 mmol/L (21.0-32.0); Calcium 8.8 mg/dL (8.5-10.1); Chloride 105 mmol/L (98-107); Estimated GFR 92.26 (mL/min/1.73m2); Glucose 160 mg/dL (74-106); Potassium 3.6 mmol/L (3.5-5.1); Sodium 143 mmol/L (136-145); Total Protein 6.7 g/dL (6.4-8.2)
[2024-06-25 09:23] LABS: Diff Comment RBC Morph Reviewed; Microcytosis 2+
[2024-06-25 18:14] LABS: CEA 2.7 ng/mL (See Note)
[2024-07-09] MEDS: Normal Saline Flush 10 ML SYR IVP (08:32)
[2024-07-09 08:39] LABS: Abs Immature Grans 0.03 10^3/uL (0.0-0.06); Absolute Basophil Count 0.06 10^3/uL (0.0-0.2); Absolute Eosinophil Count 0.12 10^3/uL (0.0-0.7); Absolute Lymphocyte Count 1.35 10^3/uL (1.2-3.4); Absolute Monocyte Count 0.44 10^3/uL (0.1-0.8); Absolute Neutrophil Count 5.95 10^3/uL (1.2-6.7); Basophils % 0.8 %; Eosinophils % 1.5 %; HCT 41.6 % (40.0-50.0); Immature Grans % 0.4 %; MCH 22.8 pg (27.0-33.0); MCHC 31.3 % (32.0-36.0); MCV 73 fL (80-95); MPV 9.9 fL (8.0-11.0); Monocytes % 5.5 %; Neutrophils % 74.8 %; Platelet Count 190 10^3/uL (130-400); RDW 16.9 % (11.8-14.1); RDW-SD 41.1 fL; WBC 7.95 10^3/uL (4.4-10.8)
[2024-07-09 08:52] LABS: Diff Comment RBC Morph Reviewed
[2024-07-09 08:53] LABS: Microcytosis 1+
[2024-07-09 08:57] LABS: ALT 29 U/L (16-63); AST 17 U/L (15-37); Albumin 3.2 g/dL (3.4-5.0); Alkaline Phosphatase 124 U/L (46-116); Anion Gap 3.6 mmol/L (3-11); BUN 9 mg/dL (7-18); Bilirubin, Total 0.66 mg/dL (0.2-1.0); CO2 34.4 mmol/L (21.0-32.0); Chloride 102 mmol/L (98-107); Estimated GFR 92.26 (mL/min/1.73m2); Glucose 220 mg/dL (74-106); Potassium 3.7 mmol/L (3.5-5.1); Sodium 140 mmol/L (136-145)
[2024-07-09 17:55] LABS: CEA 3.2 ng/mL (See Note)
== END 2024-07-15 23:59 | disposition home or self-care (01) ==
LOC: INF 00:39
PROVIDERS: Nurse Practitioner Family; PCP Nurse Practitioner Family; Visit Provider Internal Medicine Hematology & Oncology
DX: C17.0 Malignant neoplasm of duodenum (principal); Z45.2 Encounter for adjustment and management of vascular access device
CPT/HCPCS: 36591; 80053; 82378; 85025

== ENCOUNTER 2024-08-07 00:01 | Outpatient (RCR) | payer OTHER, SELFPAY ==
[2024-07-22 11:42] LABS: Abs Immature Grans 0.03 10^3/uL (0.0-0.06); Absolute Basophil Count 0.04 10^3/uL (0.0-0.2); Absolute Eosinophil Count 0.13 10^3/uL (0.0-0.7); Absolute Lymphocyte Count 1.82 10^3/uL (1.2-3.4); Absolute Monocyte Count 0.43 10^3/uL (0.1-0.8); Absolute Neutrophil Count 3.94 10^3/uL (1.2-6.7); Basophils % 0.6 %; HCT 40.6 % (40.0-50.0); HGB 12.6 g/dL (13.5-17.5); Immature Grans % 0.5 %; Lymphocytes % 28.5 %; MCH 23.1 pg (27.0-33.0); MCV 75 fL (80-95); MPV 9.7 fL (8.0-11.0); Monocytes % 6.7 %; Neutrophils % 61.7 %; Platelet Count 159 10^3/uL (130-400); RBC 5.45 10^6/uL (4.36-5.78); RDW 17.4 % (11.8-14.1); WBC 6.39 10^3/uL (4.4-10.8)
[2024-07-22 12:01] LABS: ALT 30 U/L (16-63); AST 17 U/L (15-37); Albumin 2.9 g/dL (3.4-5.0); Alkaline Phosphatase 132 U/L (46-116); Anion Gap 6.8 mmol/L (3-11); BUN 10 mg/dL (7-18); Bilirubin, Total 0.28 mg/dL (0.2-1.0); CO2 30.2 mmol/L (21.0-32.0); Calcium 8.8 mg/dL (8.5-10.1); Chloride 107 mmol/L (98-107); Estimated GFR 92.26 (mL/min/1.73m2); Glucose 94 mg/dL (74-106); Potassium 3.7 mmol/L (3.5-5.1); Sodium 144 mmol/L (136-145); Total Protein 6.5 g/dL (6.4-8.2)
[2024-07-22] MEDS: Normal Saline Flush 10 ML SYR IVP (12:19)
[2024-08-05] MEDS: Normal Saline Flush 10 ML SYR IVP (08:15)
[2024-08-05 08:28] LABS: Abs Immature Grans 0.01 10^3/uL (0.0-0.06); Absolute Basophil Count 0.04 10^3/uL (0.0-0.2); Absolute Eosinophil Count 0.11 10^3/uL (0.0-0.7); Absolute Lymphocyte Count 1.39 10^3/uL (1.2-3.4); Absolute Monocyte Count 0.41 10^3/uL (0.1-0.8); Basophils % 0.7 %; HCT 40.7 % (40.0-50.0); HGB 12.8 g/dL (13.5-17.5); Immature Grans % 0.2 %; Lymphocytes % 25.5 %; MCH 23.2 pg (27.0-33.0); MCHC 31.4 % (32.0-36.0); MCV 74 fL (80-95); MPV 9.5 fL (8.0-11.0); Monocytes % 7.5 %; Neutrophils % 64.1 %; Platelet Count 158 10^3/uL (130-400); RBC 5.52 10^6/uL (4.36-5.78); RDW 18.2 % (11.8-14.1); RDW-SD 46.7 fL; WBC 5.46 10^3/uL (4.4-10.8)
[2024-08-05 08:42] LABS: Diff Comment RBC Morph Reviewed; Microcytosis 2+
[2024-08-05 08:46] LABS: ALT 29 U/L (16-63); AST 19 U/L (15-37); Alkaline Phosphatase 137 U/L (46-116); Anion Gap 5.2 mmol/L (3-11); BUN 8 mg/dL (7-18); Bilirubin, Total 0.34 mg/dL (0.2-1.0); CO2 30.8 mmol/L (21.0-32.0); CREATININE 1.1 mg/dL (0.70-1.30); Calcium 8.6 mg/dL (8.5-10.1); Chloride 106 mmol/L (98-107); Estimated GFR 82.29 (mL/min/1.73m2); Glucose 134 mg/dL (74-106); Potassium 3.7 mmol/L (3.5-5.1); Sodium 142 mmol/L (136-145); Total Protein 6.8 g/dL (6.4-8.2)
[2024-08-07] MEDS: Normal Saline Flush 10 ML SYR IVP (15:53)
== END 2024-08-14 23:59 | disposition home or self-care (01) ==
LOC: INF 00:01
PROVIDERS: Nurse Practitioner Family; PCP Nurse Practitioner Family; Visit Provider Internal Medicine Hematology & Oncology
DX: C17.0 Malignant neoplasm of duodenum (principal); Z45.2 Encounter for adjustment and management of vascular access device
CPT/HCPCS: 36591; 80053; 96523; 82378; 85025

== ENCOUNTER 2024-08-10 08:03 | Outpatient (CLI) | payer OTHER, SELFPAY ==
--- NOTE | 2024-08-10 08:00 | RT.EKG_ITS ---
APPROVED REPORT Exam: Resting ECG Reason for Exam: PALPITATIONS Patient Location: O HR:75 bpm ECG Measurements Heart Rate 75 AXIS [place] 149 P 66 QRSd 97 QRS 74 QT 428 T 44 QTc 479 Conclusion Sinus rhythm...normal P axis, V-rate 50- 99 Normal Electrocardiogram
== END 2024-08-10 08:04 | disposition home or self-care (01) ==
LOC: CARDOPNVT 08:03
PROVIDERS: PCP Nurse Practitioner Family; Visit Provider Nurse Practitioner Family
DX: R00.2 Palpitations (principal)
CPT/HCPCS: 93005; 93010

== ENCOUNTER 2024-09-02 02:06 | Outpatient (RCR) | payer OTHER, SELFPAY ==
[2024-08-19] MEDS: Normal Saline Flush 10 ML SYR IVP (09:49)
[2024-08-19 09:59] LABS: Abs Immature Grans 0.02 10^3/uL (0.0-0.06); Absolute Basophil Count 0.05 10^3/uL (0.0-0.2); Absolute Eosinophil Count 0.07 10^3/uL (0.0-0.7); Absolute Lymphocyte Count 1.29 10^3/uL (1.2-3.4); Absolute Monocyte Count 0.33 10^3/uL (0.1-0.8); Absolute Neutrophil Count 3.73 10^3/uL (1.2-6.7); Basophils % 0.9 %; Eosinophils % 1.3 %; HCT 40.6 % (40.0-50.0); HGB 12.4 g/dL (13.5-17.5); Immature Grans % 0.4 %; Lymphocytes % 23.5 %; MCHC 30.5 % (32.0-36.0); MCV 75 fL (80-95); MPV 9.6 fL (8.0-11.0); Neutrophils % 67.9 %; Platelet Count 162 10^3/uL (130-400); RBC 5.39 10^6/uL (4.36-5.78); RDW 19.4 % (11.8-14.1); RDW-SD 50.9 fL; WBC 5.49 10^3/uL (4.4-10.8)
[2024-08-19 10:14] LABS: ALT 28 U/L (16-63); AST 20 U/L (15-37); Albumin 2.9 g/dL (3.4-5.0); Alkaline Phosphatase 123 U/L (46-116); Anion Gap 8.1 mmol/L (3-11); BUN 10 mg/dL (7-18); Bilirubin, Total 0.24 mg/dL (0.2-1.0); CO2 27.9 mmol/L (21.0-32.0); Calcium 8.3 mg/dL (8.5-10.1); Chloride 107 mmol/L (98-107); Estimated GFR 92.26 (mL/min/1.73m2); Glucose 150 mg/dL (74-106); Sodium 143 mmol/L (136-145); Total Protein 6.4 g/dL (6.4-8.2)
[2024-08-19 19:20] LABS: CEA 4.7 ng/mL (See Note)
[2024-09-02] MEDS: Normal Saline Flush 10 ML SYR IVP (10:51)
[2024-09-02 11:03] LABS: Abs Immature Grans 0.02 10^3/uL (0.0-0.06); Absolute Basophil Count 0.04 10^3/uL (0.0-0.2); Absolute Eosinophil Count 0.08 10^3/uL (0.0-0.7); Absolute Lymphocyte Count 1.54 10^3/uL (1.2-3.4); Absolute Monocyte Count 0.37 10^3/uL (0.1-0.8); Absolute Neutrophil Count 3.39 10^3/uL (1.2-6.7); Basophils % 0.7 %; Eosinophils % 1.5 %; HCT 39.3 % (40.0-50.0); HGB 11.9 g/dL (13.5-17.5); Immature Grans % 0.4 %; Lymphocytes % 28.3 %; MCH 22.8 pg (27.0-33.0); MCHC 30.3 % (32.0-36.0); MCV 75 fL (80-95); MPV 9.9 fL (8.0-11.0); Monocytes % 6.8 %; Neutrophils % 62.3 %; Platelet Count 171 10^3/uL (130-400); RBC 5.21 10^6/uL (4.36-5.78); RDW 19.8 % (11.8-14.1); RDW-SD 52.9 fL; WBC 5.44 10^3/uL (4.4-10.8)
[2024-09-02 11:19] LABS: ALT 25 U/L (16-63); AST 16 U/L (15-37); Alkaline Phosphatase 123 U/L (46-116); Anion Gap 5.7 mmol/L (3-11); BUN 9 mg/dL (7-18); Bilirubin, Total 0.28 mg/dL (0.2-1.0); CO2 29.3 mmol/L (21.0-32.0); Calcium 8.6 mg/dL (8.5-10.1); Chloride 106 mmol/L (98-107); Estimated GFR 92.26 (mL/min/1.73m2); Glucose 151 mg/dL (74-106); Potassium 4.3 mmol/L (3.5-5.1); Sodium 141 mmol/L (136-145); Total Protein 6.3 g/dL (6.4-8.2)
[2024-09-02 18:09] LABS: CEA 4.1 ng/mL (See Note)
== END 2024-09-14 23:59 | disposition home or self-care (01) ==
LOC: INF 02:06
PROVIDERS: Nurse Practitioner Family; PCP Nurse Practitioner Family; Visit Provider Internal Medicine Hematology & Oncology
DX: C17.0 Malignant neoplasm of duodenum (principal); Z45.2 Encounter for adjustment and management of vascular access device
CPT/HCPCS: 36415; 36591; 80053; 96523; 82378; 85025

== ENCOUNTER 2024-10-14 03:27 | Outpatient (RCR) | payer OTHER, SELFPAY ==
[2024-09-16] MEDS: Normal Saline Flush 10 ML SYR IVP (08:32)
[2024-09-16 08:46] LABS: Abs Immature Grans 0.02 10^3/uL (0.0-0.06); Absolute Basophil Count 0.04 10^3/uL (0.0-0.2); Absolute Eosinophil Count 0.11 10^3/uL (0.0-0.7); Absolute Lymphocyte Count 1.28 10^3/uL (1.2-3.4); Absolute Monocyte Count 0.26 10^3/uL (0.1-0.8); Absolute Neutrophil Count 3.44 10^3/uL (1.2-6.7); Basophils % 0.8 %; Eosinophils % 2.1 %; HCT 38.4 % (40.0-50.0); HGB 12.1 g/dL (13.5-17.5); Immature Grans % 0.4 %; Lymphocytes % 24.9 %; MCH 23.2 pg (27.0-33.0); MCHC 31.5 % (32.0-36.0); MCV 74 fL (80-95); Neutrophils % 66.8 %; Platelet Count 165 10^3/uL (130-400); RBC 5.21 10^6/uL (4.36-5.78); RDW 19.9 % (11.8-14.1); RDW-SD 51.8 fL; WBC 5.15 10^3/uL (4.4-10.8)
[2024-09-16 09:02] LABS: ALT 25 U/L (16-63); AST 16 U/L (15-37); Albumin 2.9 g/dL (3.4-5.0); Alkaline Phosphatase 122 U/L (46-116); Anion Gap 7.4 mmol/L (3-11); BUN 9 mg/dL (7-18); CO2 28.6 mmol/L (21.0-32.0); Calcium 8.3 mg/dL (8.5-10.1); Chloride 105 mmol/L (98-107); Estimated GFR 92.26 (mL/min/1.73m2); Glucose 247 mg/dL (74-106); Potassium 4.1 mmol/L (3.5-5.1); Sodium 141 mmol/L (136-145)
[2024-09-16 09:05] LABS: Diff Comment RBC Morph Reviewed; Microcytosis 2+
[2024-09-24 08:39] LABS: Abs Immature Grans 0.03 10^3/uL (0.0-0.06); Absolute Basophil Count 0.03 10^3/uL (0.0-0.2); Absolute Eosinophil Count 0.13 10^3/uL (0.0-0.7); Absolute Lymphocyte Count 1.39 10^3/uL (1.2-3.4); Absolute Monocyte Count 0.32 10^3/uL (0.1-0.8); Absolute Neutrophil Count 4.86 10^3/uL (1.2-6.7); Basophils % 0.4 %; Eosinophils % 1.9 %; HCT 42.5 % (40.0-50.0); HGB 13.3 g/dL (13.5-17.5); Immature Grans % 0.4 %; Lymphocytes % 20.6 %; MCH 23.2 pg (27.0-33.0); MCHC 31.3 % (32.0-36.0); MCV 74 fL (80-95); MPV 9.9 fL (8.0-11.0); Monocytes % 4.7 %; Platelet Count 211 10^3/uL (130-400); RBC 5.73 10^6/uL (4.36-5.78); RDW 20.5 % (11.8-14.1); RDW-SD 49.9 fL; WBC 6.76 10^3/uL (4.4-10.8)
[2024-09-24] MEDS: Normal Saline Flush 10 ML SYR IVP (08:43)
[2024-09-24 08:57] LABS: Anisocytosis 1+; Diff Comment RBC Morph Reviewed; Microcytosis 1+
[2024-09-24 09:00] LABS: ALT 43 U/L (16-63); AST 20 U/L (15-37); Albumin 3.3 g/dL (3.4-5.0); Alkaline Phosphatase 134 U/L (46-116); Anion Gap 4.2 mmol/L (3-11); BUN 10 mg/dL (7-18); Bilirubin, Total 0.29 mg/dL (0.2-1.0); CO2 31.8 mmol/L (21.0-32.0); CREATININE 1.1 mg/dL (0.70-1.30); Calcium 8.4 mg/dL (8.5-10.1); Chloride 104 mmol/L (98-107); Estimated GFR 82.29 (mL/min/1.73m2); Glucose 295 mg/dL (74-106); Potassium 4.2 mmol/L (3.5-5.1); Sodium 140 mmol/L (136-145); Total Protein 6.8 g/dL (6.4-8.2)
[2024-09-24 18:45] LABS: CEA 4.5 ng/mL (See Note)
[2024-09-30 12:54] LABS: Abs Immature Grans 0.02 10^3/uL (0.0-0.06); Absolute Basophil Count 0.04 10^3/uL (0.0-0.2); Absolute Eosinophil Count 0.08 10^3/uL (0.0-0.7); Absolute Lymphocyte Count 1.44 10^3/uL (1.2-3.4); Absolute Neutrophil Count 4.42 10^3/uL (1.2-6.7); Basophils % 0.6 %; Eosinophils % 1.3 %; HCT 40.8 % (40.0-50.0); HGB 12.6 g/dL (13.5-17.5); Immature Grans % 0.3 %; Lymphocytes % 22.5 %; MCHC 30.9 % (32.0-36.0); MCV 75 fL (80-95); MPV 9.8 fL (8.0-11.0); Monocytes % 6.3 %; Platelet Count 170 10^3/uL (130-400); RBC 5.47 10^6/uL (4.36-5.78); RDW 19.8 % (11.8-14.1); RDW-SD 51.6 fL
[2024-09-30 13:09] LABS: ALT 32 U/L (16-63); AST 16 U/L (15-37); Albumin 3.2 g/dL (3.4-5.0); Alkaline Phosphatase 129 U/L (46-116); Anion Gap 6.5 mmol/L (3-11); BUN 11 mg/dL (7-18); Bilirubin, Total 0.36 mg/dL (0.2-1.0); CO2 29.5 mmol/L (21.0-32.0); CREATININE 1.1 mg/dL (0.70-1.30); Calcium 8.5 mg/dL (8.5-10.1); Chloride 102 mmol/L (98-107); Estimated GFR 82.29 (mL/min/1.73m2); Glucose 334 mg/dL (74-106); Potassium 3.9 mmol/L (3.5-5.1); Sodium 138 mmol/L (136-145); Total Protein 6.5 g/dL (6.4-8.2)
[2024-09-30 13:10] LABS: Diff Comment RBC Morph Reviewed; Microcytosis 1+
[2024-09-30] MEDS: Normal Saline Flush 10 ML SYR IVP (13:11)
[2024-09-30 23:08] LABS: CEA 4.4 ng/mL (See Note)
[2024-10-14 10:28] LABS: Abs Immature Grans 0.02 10^3/uL (0.0-0.06); Absolute Basophil Count 0.04 10^3/uL (0.0-0.2); Absolute Eosinophil Count 0.08 10^3/uL (0.0-0.7); Absolute Lymphocyte Count 1.57 10^3/uL (1.2-3.4); Absolute Monocyte Count 0.41 10^3/uL (0.1-0.8); Absolute Neutrophil Count 4.08 10^3/uL (1.2-6.7); Basophils % 0.6 %; Eosinophils % 1.3 %; HCT 43.4 % (40.0-50.0); HGB 13.4 g/dL (13.5-17.5); Immature Grans % 0.3 %; Lymphocytes % 25.3 %; MCH 23.3 pg (27.0-33.0); MCHC 30.9 % (32.0-36.0); MCV 76 fL (80-95); MPV 10.2 fL (8.0-11.0); Monocytes % 6.6 %; Neutrophils % 65.9 %; Platelet Count 179 10^3/uL (130-400); RBC 5.75 10^6/uL (4.36-5.78); RDW 19.5 % (11.8-14.1); RDW-SD 51.6 fL
[2024-10-14] MEDS: Normal Saline Flush 10 ML SYR IVP (10:41)
[2024-10-14 10:59] LABS: ALT 28 U/L (16-63); AST 16 U/L (15-37); Albumin 3.3 g/dL (3.4-5.0); Alkaline Phosphatase 136 U/L (46-116); Anion Gap 6.8 mmol/L (3-11); BUN 10 mg/dL (7-18); Bilirubin, Total 0.44 mg/dL (0.2-1.0); CO2 30.2 mmol/L (21.0-32.0); CREATININE 1.2 mg/dL (0.70-1.30); Calcium 8.9 mg/dL (8.5-10.1); Chloride 103 mmol/L (98-107); Estimated GFR 74.13 (mL/min/1.73m2); Glucose 297 mg/dL (74-106); Potassium 4.1 mmol/L (3.5-5.1); Sodium 140 mmol/L (136-145); Total Protein 6.9 g/dL (6.4-8.2)
[2024-10-14 21:27] LABS: CEA 7.5 ng/mL (See Note)
== END 2024-10-15 23:59 | disposition home or self-care (01) ==
LOC: INF 03:27
PROVIDERS: Nurse Practitioner Family; PCP Nurse Practitioner Family; Visit Provider Internal Medicine Hematology & Oncology
DX: C17.0 Malignant neoplasm of duodenum (principal)
CPT/HCPCS: 36591; 80053; 96523; 82378; 85025

== ENCOUNTER 2024-10-30 00:14 | Outpatient (RCR) | payer OTHER, SELFPAY ==
[2024-10-28] MEDS: Normal Saline Flush 10 ML SYR IVP (08:08)
[2024-10-28 08:40] LABS: Abs Immature Grans 0.02 10^3/uL (0.0-0.06); Absolute Basophil Count 0.02 10^3/uL (0.0-0.2); Absolute Lymphocyte Count 1.47 10^3/uL (1.2-3.4); Absolute Monocyte Count 0.23 10^3/uL (0.1-0.8); Basophils % 0.4 %; Eosinophils % 2.1 %; HGB 13.2 g/dL (13.5-17.5); Immature Grans % 0.4 %; MCH 23.1 pg (27.0-33.0); MCHC 30.7 % (32.0-36.0); MCV 75 fL (80-95); MPV 9.7 fL (8.0-11.0); Monocytes % 4.9 %; Neutrophils % 61.2 %; Platelet Count 146 10^3/uL (130-400); RBC 5.72 10^6/uL (4.36-5.78); RDW 19.2 % (11.8-14.1); RDW-SD 50.5 fL; WBC 4.74 10^3/uL (4.4-10.8)
[2024-10-28 09:27] LABS: ALT 28 U/L (16-63); AST 21 U/L (15-37); Albumin 3.1 g/dL (3.4-5.0); Alkaline Phosphatase 116 U/L (46-116); Anion Gap 5.7 mmol/L (3-11); BUN 9 mg/dL (7-18); Bilirubin, Total 0.42 mg/dL (0.2-1.0); CO2 30.3 mmol/L (21.0-32.0); Calcium 8.6 mg/dL (8.5-10.1); Chloride 106 mmol/L (98-107); Estimated GFR 92.26 (mL/min/1.73m2); Glucose 157 mg/dL (74-106); Potassium 3.9 mmol/L (3.5-5.1); Sodium 142 mmol/L (136-145); Total Protein 6.6 g/dL (6.4-8.2); Vitamin B12 395 pg/mL (193-986)
[2024-10-28 09:29] LABS: Folate > 20.0 ng/mL (8.6-20.0)
[2024-10-28 23:15] LABS: CEA 4.2 ng/mL (See Note)
[2024-11-01 23:49] LABS: Free Retinol (Vitamin A) 27.6 mcg/dL (32.5-78.0)
[2024-11-02 11:47] LABS: Thiamine (Vitamin B1), WB 96 nmol/L (70-180)
== END 2024-11-12 23:59 | disposition home or self-care (01) ==
LOC: INF 00:14
PROVIDERS: Nurse Practitioner Family; PCP Nurse Practitioner Family; Visit Provider Internal Medicine Hematology & Oncology
DX: Z90.410 Acquired total absence of pancreas (principal); Z90.49 Acquired absence of other specified parts of digestive tract; C17.0 Malignant neoplasm of duodenum
CPT/HCPCS: 36591; 80053; 96523; 82378; 82607; 82746; 84425; 84446; 84590; 85025

== ENCOUNTER 2024-11-15 01:48 | Outpatient (RCR) | payer OTHER, SELFPAY ==
[2024-11-15 08:14] LABS: Abs Immature Grans 0.01 10^3/uL (0.0-0.06); Absolute Basophil Count 0.04 10^3/uL (0.0-0.2); Absolute Eosinophil Count 0.07 10^3/uL (0.0-0.7); Absolute Lymphocyte Count 1.16 10^3/uL (1.2-3.4); Absolute Monocyte Count 0.31 10^3/uL (0.1-0.8); Absolute Neutrophil Count 1.83 10^3/uL (1.2-6.7); Basophils % 1.2 %; HCT 44.3 % (40.0-50.0); HGB 13.3 g/dL (13.5-17.5); Immature Grans % 0.3 %; Lymphocytes % 33.9 %; MCH 22.9 pg (27.0-33.0); MCV 76 fL (80-95); MPV 10.2 fL (8.0-11.0); Monocytes % 9.1 %; Neutrophils % 53.5 %; Platelet Count 145 10^3/uL (130-400); RBC 5.82 10^6/uL (4.36-5.78); RDW 19.7 % (11.8-14.1); RDW-SD 51.8 fL; WBC 3.42 10^3/uL (4.4-10.8)
[2024-11-15 08:33] LABS: ALT 34 U/L (16-63); AST 22 U/L (15-37); Albumin 3.1 g/dL (3.4-5.0); Alkaline Phosphatase 175 U/L (46-116); Anion Gap 9.2 mmol/L (3-11); BUN 10 mg/dL (7-18); Bilirubin, Total 0.36 mg/dL (0.2-1.0); CO2 28.8 mmol/L (21.0-32.0); Calcium 8.8 mg/dL (8.5-10.1); Chloride 105 mmol/L (98-107); Estimated GFR 92.26 (mL/min/1.73m2); Glucose 266 mg/dL (74-106); Potassium 4.1 mmol/L (3.5-5.1); Sodium 143 mmol/L (136-145); Total Protein 6.7 g/dL (6.4-8.2)
[2024-11-15 18:47] LABS: CEA 4.7 ng/mL (See Note)
== END 2024-12-13 23:59 | disposition home or self-care (01) ==
LOC: INF 01:48
PROVIDERS: Nurse Practitioner Family; PCP Nurse Practitioner Family; Visit Provider Internal Medicine Hematology & Oncology
DX: C17.0 Malignant neoplasm of duodenum (principal)
CPT/HCPCS: 36591; 80053; 82378; 85025

== ENCOUNTER 2024-12-02 19:56 | Outpatient (REF) | payer OTHER, SELFPAY ==
[2024-12-02 14:56] LABS: Bilirubin Negative (Negative); Blood Negative (Negative); Clarity Clear (Clear); Glucose 100 mg/dL (Negative); Ketones Negative (Negative); Leukocyte Esterase Negative (Negative); Nitrite Negative (Negative); Urobilinogen 0.2 mg/dL (Up to 0.2); pH 5.5 (5-8)
[2024-12-02 15:14] LABS: COMMENT (LAB VIEW ONLY) 54.36 mg/dL; Microalb ug/mg Crea 20.4 ug/mg Cr
== END 2024-12-02 19:57 | disposition home or self-care (01) ==
LOC: NCHCN 19:56
PROVIDERS: PCP Nurse Practitioner Family; Visit Provider Nurse Practitioner Family
DX: E10.65 Type 1 diabetes mellitus with hyperglycemia (principal)
CPT/HCPCS: 81003; 82043; 82570

== ENCOUNTER 2024-12-20 03:02 | Outpatient (RCR) | payer OTHER, SELFPAY ==
[2024-12-20] MEDS: Normal Saline Flush 10 ML SYR IVP (10:08)
== END 2025-01-12 23:59 | disposition home or self-care (01) ==
LOC: INF 03:02
PROVIDERS: PCP Nurse Practitioner Family; Visit Provider Internal Medicine Hematology & Oncology
DX: Z45.2 Encounter for adjustment and management of vascular access device (principal)
CPT/HCPCS: 96523

== ENCOUNTER 2024-12-31 22:17 | Outpatient (REF) | payer OTHER, SELFPAY ==
[2024-12-31 16:19] LABS: Bilirubin Negative (Negative); Blood Trace-lysed (Negative); Clarity Clear (Clear); Glucose >=1000 mg/dL (Negative); Ketones Negative (Negative); Leukocyte Esterase Negative (Negative); Nitrite Negative (Negative); pH 5.5 (5-8)
[2024-12-31 16:35] LABS: Bacteria Rare HPF (Negative); C & S Indicated? No; Casts Negative LPF (Negative); Crystals Negative HPF (Negative); Epithelial Cells Few HPF (Negative); Mucus Negative (Negative); Other Cells Rare Transitional (Negative)
== END 2024-12-31 22:18 | disposition home or self-care (01) ==
LOC: NCHCN 22:17
PROVIDERS: PCP Nurse Practitioner Family; Visit Provider Nurse Practitioner Family
DX: R39.9 Unspecified symptoms and signs involving the genitourinary system (principal)
CPT/HCPCS: 81003; 81015

== ENCOUNTER 2025-02-22 02:12 | Outpatient (RCR) | payer OTHER, SELFPAY ==
[2025-02-22 08:35] LABS: Abs Immature Grans 0.02 10^3/uL (0.0-0.06); Absolute Basophil Count 0.05 10^3/uL (0.0-0.2); Absolute Eosinophil Count 0.15 10^3/uL (0.0-0.7); Absolute Lymphocyte Count 1.36 10^3/uL (1.2-3.4); Absolute Monocyte Count 0.31 10^3/uL (0.1-0.8); Absolute Neutrophil Count 4.03 10^3/uL (1.2-6.7); Basophils % 0.8 %; Eosinophils % 2.5 %; HCT 40.7 % (40.0-50.0); HGB 12.3 g/dL (13.5-17.5); Immature Grans % 0.3 %; MCH 21.5 pg (27.0-33.0); MCHC 30.2 % (32.0-36.0); MCV 71 fL (80-95); MPV 10.5 fL (8.0-11.0); Monocytes % 5.2 %; Neutrophils % 68.2 %; Platelet Count 164 10^3/uL (130-400); RBC 5.71 10^6/uL (4.36-5.78); RDW 17.2 % (11.8-14.1); RDW-SD 42.1 fL; WBC 5.92 10^3/uL (4.4-10.8)
[2025-02-22 09:01] LABS: ALT 37 U/L (16-63); AST 19 U/L (15-37); Albumin 3.3 g/dL (3.4-5.0); Alkaline Phosphatase 130 U/L (46-116); Anion Gap 7.4 mmol/L (3-11); BUN 7 mg/dL (7-18); Bilirubin, Total 0.3 mg/dL (0.2-1.0); CO2 29.6 mmol/L (21.0-32.0); CREATININE 0.9 mg/dL (0.70-1.30); Calcium 8.4 mg/dL (8.5-10.1); Chloride 103 mmol/L (98-107); Estimated GFR 104.05 (mL/min/1.73m2); Glucose 220 mg/dL (74-106); Potassium 3.9 mmol/L (3.5-5.1); Sodium 140 mmol/L (136-145)
[2025-02-22 09:08] LABS: Diff Comment RBC Morph Reviewed; Microcytosis 1+
[2025-02-22] MEDS: Normal Saline Flush 10 ML SYR IVP (09:25)
[2025-02-22 19:08] LABS: CEA 3.3 ng/mL (See Note)
== END 2025-03-14 23:59 | disposition home or self-care (01) ==
LOC: INF 02:12
PROVIDERS: Nurse Practitioner Family; PCP Nurse Practitioner Family; Visit Provider Internal Medicine Hematology & Oncology
DX: C17.0 Malignant neoplasm of duodenum (principal)
CPT/HCPCS: 36591; 80053; 82378; 85025

== ENCOUNTER 2025-05-17 06:15 | Outpatient (RCR) | payer OTHER, SELFPAY ==
[2025-05-17] MEDS: Normal Saline Flush 10 ML SYR IVP (08:29)
[2025-05-17 08:40] LABS: Abs Immature Grans 0.01 10^3/uL (0.0-0.06); HCT 40.6 % (40.0-50.0); HGB 12.6 g/dL (13.5-17.5); Immature Grans % 0.2 %; MCH 22.4 pg (27.0-33.0); MCHC 31.0 % (32.0-36.0); MCV 72 fL (80-95); Platelet Count 185 10^3/uL (130-400); RBC 5.62 10^6/uL (4.36-5.78); RDW 18.6 % (11.8-14.1); RDW-SD 46.5 fL
[2025-05-17 08:49] LABS: WBC 6.02 10^3/uL (4.4-10.8)
[2025-05-17 09:03] LABS: ALT 34 U/L (16-63); AST 18 U/L (15-37); Albumin 3.1 g/dL (3.4-5.0); Alkaline Phosphatase 104 U/L (46-116); Anion Gap 4.4 mmol/L (3-11); BUN 13 mg/dL (7-18); Bilirubin, Total 0.3 mg/dL (0.2-1.0); CO2 31.6 mmol/L (21.0-32.0); Calcium 8.6 mg/dL (8.5-10.1); Chloride 107 mmol/L (98-107); Estimated GFR 107.82 (mL/min/1.73m2); Glucose 187 mg/dL (74-106); Potassium 3.9 mmol/L (3.5-5.1); Sodium 143 mmol/L (136-145); Total Protein 6.6 g/dL (6.4-8.2)
[2025-05-17 09:14] LABS: Anisocytosis 1+; Microcytosis 2+
[2025-05-17 20:20] LABS: CEA 2.4 ng/mL (See Note)
== END 2025-06-14 23:59 | disposition home or self-care (01) ==
LOC: INF 06:15
PROVIDERS: PCP Nurse Practitioner Family; Visit Provider Nurse Practitioner Family
DX: C17.0 Malignant neoplasm of duodenum (principal)
CPT/HCPCS: 36591; 80053; 82378; 85025

== ENCOUNTER 2025-06-24 00:10 | Observation (INO) | payer OTHER, SELFPAY ==
[2025-06-24] VITALS (118 sets, daily range): BP systolic 97–226; BP diastolic 58–187; PULSE 57–177; RESP 10–32; TEMP 36.3–36.9; O2SAT 89–98
--- NOTE | 2025-06-24 00:15 | RT.EKG_ITS ---
APPROVED REPORT Exam: Resting ECG Reason for Exam: tachycardia Patient Location: E HR:158 bpm ECG Measurements Heart Rate 158 AXIS [place] 117 P 0 QRSd 88 QRS 75 QT 304 T 5 QTc [address] depression, diffuse leads...ST <-0.07mV, ant/lat/inf irregular narrow complex tachycardia no ST segment or T wave abnormalities to suggest occlusive M
--- NOTE | 2025-06-24 00:30 | RT.EKG_ITS ---
APPROVED REPORT Exam: Resting ECG Reason for Exam: tachycardia Patient Location: E HR:141 bpm ECG Measurements Heart Rate 141 AXIS [place] [id number] P [id number] QRSd 87 QRS 69 QT 323 T 38 QTc 495 Conclusion Atrial fibrillation...V-rate 93-174, irreg A-activity no ST segment or T wave abnormalities to suggest occlusive [facility]
--- NOTE | 2025-06-24 00:33 | NUR.NOTE ---
ED verbal order to hold [facility] Nursing Note:
[2025-06-24 00:41] LABS: Abs Immature Grans 0.03 10^3/uL (0.0-0.06); HCT 48.1 % (40.0-50.0); HGB 15.1 g/dL (13.5-17.5); Immature Grans % 0.3 %; MCH 22.1 pg (27.0-33.0); MCHC 31.4 % (32.0-36.0); MCV 70 fL (80-95); Platelet Count 188 10^3/uL (130-400); RBC 6.83 10^6/uL (4.36-5.78); RDW 18.0 % (11.8-14.1); RDW-SD 41.5 fL; WBC 9.60 10^3/uL (4.4-10.8)
--- NOTE | 2025-06-24 00:42 | DI.RAD_ITS ---
Exam(s) XR PORTABLE CHEST AP EXAM: XR PORTABLE CHEST AP CLINICAL HISTORY: tachycardia TECHNIQUE: 2D digital imaging was performed of the chest. One image was obtained. An AP view was obtained. COMPARISON: CR,XR XR PORTABLE CHEST AP from 05/31/2024 FINDINGS: MEDIASTINUM: Normal. HEART: Normal. PULMONARY VASCULATURE: Normal. LUNGS: Clear. PLEURAL SPACE: No pleural effusion or pneumothorax. BONE:Within normal limits for the patient's age. OTHER FINDINGS:There is again seen a right chest wall port. IMPRESSION: 1. No acute pulmonary findings. 2. The preliminary [facility] report was reviewed. DATA REPOSITORY: RADIATION DOSE DELIVERED:
--- NOTE | 2025-06-24 00:45 | RT.EKG_ITS ---
APPROVED REPORT Exam: Resting ECG Reason for Exam: tachycardia Patient Location: E HR:104 bpm ECG Measurements Heart Rate 104 AXIS [place] [id number] P [id number] QRSd 92 QRS 71 QT 345 T 23 QTc 455 Conclusion Atrial fibrillation...V-rate 78-130, irreg A-activity no ST segment or T wave abnormalities to suggest occlusive MD
[2025-06-24 00:46] LABS: INR 1.1 (0.9-1.1); PTT Activated 26.1 sec (20.6-30.2); Prothrombin Time 10.9 sec (9.1-11.1)
[2025-06-24 00:50] LABS: Microcytosis 1+
[2025-06-24 00:54] LABS: ALT 38 U/L (16-63); AST 18 U/L (15-37); Albumin 4.1 g/dL (3.4-5.0); Alkaline Phosphatase 151 U/L (46-116); Anion Gap 12.4 mmol/L (3-11); BUN 11 mg/dL (7-18); Bilirubin, Total 0.5 mg/dL (0.2-1.0); CO2 25.6 mmol/L (21.0-32.0); Calcium 9.2 mg/dL (8.5-10.1); Chloride 99 mmol/L (98-107); Glucose 254 mg/dL (74-106); Magnesium 1.9 mg/dL (1.8-2.4); Potassium 4.1 mmol/L (3.5-5.1); Sodium 137 mmol/L (136-145); Total Protein 8.3 g/dL (6.4-8.2); Troponin I 11 ng/L (<or=76)
[2025-06-24] MEDS: Prochlorperazine 10 MG/2 ML VIAL (01:00)
[2025-06-24] MEDS: dilTIAZem 25 MG/5 ML VIAL 10 MG IVP ×2 (01:04→02:30)
--- NOTE | 2025-06-24 01:12 | W.ED.GENAD ---
Discharge Plan Disposition Patient Disposition: [facility] Condition: Critical Discharge Details Clinical Impression: Atrial fibrillation with rapid ventricular response, Chemotherapy induced nausea and vomiting Admit Date/Time: 06/24/25 05:14 Admit Provider: Joe Renae Attending Provider: Joe Renae Primary Care Provider: Olga Hoffman ED Provider: Mira Velarde General Mode of arrival: ambulatory. Date/Time Provider Initiated Documentation: 06/24/25 00:14. Limitations to Documentation: no limitations. Information obtained by: patient and family. HPI Narrative: 49yo M with hx metastatic colorectal cancer on chemotherapy (infusion today), HTN, T2DM, CKD, presenting for irregular heart rate. Has been vomiting persistently since chemo this morning, not keeping much down. Persistently nausated. This evening his partner who is a nurse noted his HR was irregular and so they presented to the ED for evaluation. Fluoruracil currently infusing. Not sure what other chemo he had today. Taking PO compazine but still vomiting. He has no chest pain, shortness of breath, palpitations. He is otherwise in his usual state of health with no fevers, chills, rash, abdomminal pain, dysuria, LE edema, or other concerns. Related Data Home Medications Medication Instructions Recorded Confirmed ondansetron 4 mg disintegrating 4 mg PO Q8H PRN nausea and 09/23/22 06/24/25 tablet vomiting #30 tabs montelukast 10 mg tablet 10 mg PO DAILY 11/10/23 06/24/25 magnesium oxide 400 mg PO DAILY 12/30/23 06/24/25 gabapentin 600 mg tablet 600 mg PO HS PRN 02/24/24 06/24/25 potassium chloride 10 mEq 10 meq PO DAILY 03/24/24 06/24/25 tablet,extended release furosemide 20 mg tablet 40 mg PO BID 04/06/24 06/24/25 brnqlo-hoxlvcts-ynfbqph 4 cap PO TID 04/06/24 06/24/25 40,000-126,000-168,000 unit capsule, delay rel (Zenpep) omeprazole 20 mg capsule,delayed 20 mg PO DAILY 04/06/24 06/24/25 release acetaminophen 325 mg tablet 650 mg PO Q6H PRN 05/31/24 06/24/25 ergocalciferol (vitamin D2) 1,250 5,000 mcg PO .weekly 05/31/24 06/24/25 mcg (50,000 unit) capsule insulin lispro 100 unit/mL 05/31/24 04/07/25 subcutaneous solution (Humalog U-100 Insulin) loratadine 10 mg tablet (Claritin) 10 mg PO DAILY 05/31/24 06/24/25 prochlorperazine maleate 10 mg 10 mg PO Q8H PRN 05/31/24 06/24/25 tablet tadalafil 20 mg tablet 20 mg PO DAILY PRN 05/31/24 06/24/25 zalose-wxyjjenc-oiuparz 2 cap PO BID 07/02/24 06/24/25 36,000-114,000-180,000 unit capsule,delay rel (Creon) polyethylene glycol 3350 17 17 g PO DAILY 07/02/24 06/24/25 gram/dose oral powder citalopram 40 mg tablet 40 mg PO DAILY 12/06/24 06/24/25 diphenoxylate-atropine 2.5 1 tab PO QID PRN 12/06/24 06/24/25 mg-0.025 mg tablet fexofenadine 180 mg tablet 180 mg PO DAILY 12/06/24 06/24/25 (Leslie Allergy) glucagon 3 mg/actuation nasal 3 mg intranasal ONCE 12/06/24 06/24/25 spray (Baqsimi) rekkbj-kbxwjkes-gwvusut 3 cap PO TID 12/06/24 06/24/25 40,000-126,000-168,000 unit capsule, delay rel (Zenpep) magnesium chloride 71.5 mg 71.5 mg PO DAILY 12/06/24 06/24/25 (magnesium chloride) tablet,delayed release (Slow-Mag) multivitamin with minerals-folic tab PO 12/06/24 04/07/25 acid 200 mcg chewable tablet (Adult Multivitamin Gummies) ondansetron 8 mg disintegrating 8 mg PO Q8H 12/06/24 06/24/25 tablet lorazepam 0.5 mg tablet 0.5 mg PO DAILY PRN 04/07/25 06/24/25 Previous Rx's Medication Instructions Recorded ondansetron 4 mg disintegrating 4 mg PO Q8H PRN nausea and 09/23/22 tablet vomiting #30 tabs Allergies Allergy/AdvReac Type Severity Reaction Status Date / Time Penicillins Allergy Intermediate Anaphylaxsi Verified 06/24/25 00:20 s General Stated Complaint: Arrhythmia ANA M: 2 Review of Systems Narrative: see HPI Exam Narrative Exam Narrative: General: Alert, clutching emesis bag Head: Normocephalic, atraumatic Neck: Trachea midline, Neck supple. ENT: Slightly dry MM. Cardiac: Irregular, tachycardiac, no murmurs appreciated Resp: No respiratory distress. CTAB. Abd: Soft, non-distended, nontender : No suprapubic tenderness. Extremities: No deformities. No peripheral edema. Neurologic: GCS 15. Moves all extremities freely against gravity Course Vital Signs Vital signs: Vital Signs Temperature 36.9 C 06/24/25 00:15 Pulse 177 H 06/24/25 00:15 Respiratory Rate 20 06/24/25 00:15 Blood Pressure 226/187 H 06/24/25 00:15 Pulse Oximetry 97 06/24/25 00:15 Temperature 36.9 C 06/24/25 00:15 Pulse 94 H 06/24/25 00:45 Pulse 146 H 06/24/25 00:45 Respiratory Rate 16 06/24/25 00:45 Blood Pressure 142/109 H 06/24/25 00:45 Blood Pressure Mean 112 06/24/25 00:45 Blood Pressure Position Sitting 06/24/25 00:15 Pulse Oximetry 97 06/24/25 00:45 Oxygen Delivery Method Room Air 06/24/25 00:15 Oxygen Flow Rate 0 06/24/25 00:15 Lab/Test Results Lab/Test Results: Laboratory Tests Range/Units 06/24/25 00:25 WBC (4.4-10.8) 10^3/uL 9.60 RBC (4.36-5.78) 10^6/uL 6.83 H Hgb (13.5-17.5) g/dL 15.1 Hct (40.0-50.0) % 48.1 MCV (80-95) fL 70 L MCH (27.0-33.0) pg 22.1 L MCHC (32.0-36.0) % 31.4 L RDW (11.8-14.1) % 18.0 H Plt Count (130-400) 10^3/uL 188 MPV (8.0-11.0) fL Immature Gran % % 0.3 Neutrophils % % 90.2 Lymphocytes % % 7.3 Monocytes % % 2.0 Eosinophils % % 0.0 Basophils % % 0.2 Nucleated RBC % (0.0-0.3) % 0.0 Absolute Neutrophils (1.2-6.7) 10^3/uL 8.66 H Absolute Lymphocytes (1.2-3.4) 10^3/uL 0.70 L Absolute Monocytes (0.1-0.8) 10^3/uL 0.19 Absolute Eosinophils (0.0-0.7) 10^3/uL 0.00 Absolute Basophils (0.0-0.2) 10^3/uL 0.02 RBC Morphology See Below Microcytosis 1+ PT (9.1-11.1) sec 10.9 INR (0.9-1.1) 1.1 APTT (20.6-30.2) sec 26.1 Sodium (136-145) mmol/L 137 Potassium (3.5-5.1) mmol/L 4.1 Chloride (98-107) mmol/L 99 Carbon Dioxide (21.0-32.0) mmol/L 25.6 Anion Gap (3-11) mmol/L 12.4 H BUN (7-18) mg/dL 11 Creatinine (0.70-1.30) mg/dL 1.1 Est GFR (CKD-EPI 2020) (mL/min/1.73m2) 81.78 Glucose (74-106) mg/dL 254 H Calcium (8.5-10.1) mg/dL 9.2 Magnesium (1.8-2.4) mg/dL 1.9 Total Bilirubin (0.2-1.0) mg/dL 0.5 AST (15-37) U/L 18 ALT (16-63) U/L 38 Alkaline Phosphatase (46-116) U/L 151 H Troponin I (<or=76) ng/L 11 NT-Pro-B Natriuret Pep (<300) pg/mL 130 Total Protein (6.4-8.2) g/dL 8.3 H Albumin (3.4-5.0) g/dL 4.1 Medical Decision Making 49yo M with hx metastatic colorectal cancer on chemotherapy (infusion today), HTN, T2DM, CKD, presenting for irregular heart rate. Has been vomiting persistently since chemo this morning. No other infectious symptoms. Fluoruracil infusing on arrival. Tachycardiac on arrival to 150's-170's, hypertensive with inital BP charted as SBP 226/187, repeat without intervention 140's/70's (suspect more accurate) . Initial eval and resus: -EKG on arrival irregular narrow complex tachycardia rate 150's; no clear p waves but has periods of regularity, unclear if afib/aflutter. -HR consistently 130's-140's on the monitor; repeat EKG obtained and slower rate and similar with no consistent p waves present -CXR independently reviewed; no pulmonary edema or cardiac enlargement or focal pneumonia on my view. -Given extreme HR and consistent moderate hypertension, unlikely tachycardia 2/t volume depletion alone. Given 10mg IV diltazem (low dose as pt reports he has tolerated antihypertensives poorly in the past) with improvement in rate to low 100's, BP 100's/70's. -Repeat EKG consistent with afib, no ST segment or T wave abnormalities to suggest occlusive NE -Paused chemo infusion pending discussion with heme-onc Ed course: -Labs reviewed as below, CBC reassuring with no leuckotysosis or anemia, CMP with no actionable abnormalities, Mg normal, TSH normal, coags normal, BNP not suggestive of heart failure, troponin normal with minimal change with one and three hour repeats. -CXR read with no actue findings -CTA independently reviewed; no large saddle embolus on my view, radiology read with no acute findings. -Given IVFB, IV compazine for N/V and PO ativan for anxiety -Required 2nd dose of IV diltazem, followed by PO -Diltazem gtt started after HR again jumped to [address] [place] [facility] [place]; presentation not thought to be d/t flurouracil as patient has been on this for quite some time, other chemo earlier today included levaquin (also not new) as well as irinotecan which is new today which is though to be more likely he culprit (if indeed chemo is precipitating factor). Advised restarting flurouracil infusion. Discussed with Dr. Christopher; advised against cardioversion given unclear onset as patient is asymptomatic. Would start eliquis 5mg BID (CHADS-VASC 2 and pt with active cancer) and continue PO diltazem 30mg q 6 hours, titrate off drip as able. If needed 2nd line agent would at digoxin. Could consider outpatient/non-urgent cardioversion. Discussed with [facility] hospitalist Dr. Renae; pt accepted to medicine service for further workup and management. Awaiting admission orders and transfer upstairs. Lab Data Lab results reviewed: Yes I reviewed the patient's lab results. Labs: Laboratory Tests Range/Units 06/24/25 06/24/25 06/24/25 00:25 01:25 04:00 WBC (4.4-10.8) 10^3/uL 9.60 RBC (4.36-5.78) 10^6/uL 6.83 H Hgb (13.5-17.5) g/dL 15.1 Hct (40.0-50.0) % 48.1 MCV (80-95) fL 70 L MCH (27.0-33.0) pg 22.1 L MCHC (32.0-36.0) % 31.4 L RDW (11.8-14.1) % 18.0 H Plt Count (130-400) 10^3/uL 188 MPV (8.0-11.0) fL Immature Gran % % 0.3 Neutrophils % % 90.2 Lymphocytes % % 7.3 Monocytes % % 2.0 Eosinophils % % 0.0 Basophils % % 0.2 Nucleated RBC % (0.0-0.3) % 0.0 Absolute Neutrophils (1.2-6.7) 10^3/uL 8.66 H Absolute Lymphocytes (1.2-3.4) 10^3/uL 0.70 L Absolute Monocytes (0.1-0.8) 10^3/uL 0.19 Absolute Eosinophils (0.0-0.7) 10^3/uL 0.00 Absolute Basophils (0.0-0.2) 10^3/uL 0.02 RBC Morphology See Below Microcytosis 1+ PT (9.1-11.1) sec 10.9 INR (0.9-1.1) 1.1 APTT (20.6-30.2) sec 26.1 Sodium (136-145) mmol/L 137 Potassium (3.5-5.1) mmol/L 4.1 Chloride (98-107) mmol/L 99 Carbon Dioxide (21.0-32.0) mmol/L 25.6 Anion Gap (3-11) mmol/L 12.4 H BUN (7-18) mg/dL 11 Creatinine (0.70-1.30) mg/dL 1.1 Est GFR (CKD-EPI 2020) (mL/min/1.73m2) 81.78 Glucose (74-106) mg/dL 254 H Calcium (8.5-10.1) mg/dL 9.2 Magnesium (1.8-2.4) mg/dL 1.9 Total Bilirubin (0.2-1.0) mg/dL 0.5 AST (15-37) U/L 18 ALT (16-63) U/L 38 Alkaline Phosphatase (46-116) U/L 151 H Troponin I (<or=76) ng/L 11 15 16 NT-Pro-B Natriuret Pep (<300) pg/mL 130 Total Protein (6.4-8.2) g/dL 8.3 H Albumin (3.4-5.0) g/dL 4.1 TSH (0.36-3.74) uIU/mL 1.46 PFSH All Active Problems (Updated 06/24/25 @ 05:22 by Mira Velarde MD) Chemotherapy induced nausea and vomiting (Acute) Atrial fibrillation with rapid ventricular response (Acute) Colorectal cancer (Chronic) Atrial fibrillation with rapid ventricular response (Acute) Hypertension (Chronic) Burn of right leg (Acute) Foot ulcer, left (Acute) Cellulitis (Acute) Ulcer of right foot with fat layer exposed (Acute) Hyperpigmented skin lesion (Acute) Nevus (Acute) Adenocarcinoma of duodenum (Acute) Peripheral neuropathy (Acute) Venous insufficiency (Acute) Plantar fascial fibromatosis of left foot (Acute) Ulcer of left foot, limited to breakdown of skin (Acute) Type 2 diabetes mellitus with diabetic nephropathy (Acute) Type 2 diabetes mellitus without complication (Acute) Tubulovillous adenoma (Acute ~12/04/22) Tubular adenoma (Acute ~12/04/22) Steatosis (Acute) Duodenal nodule (Acute) Abnormal abdominal CT scan (Acute) Abnormal bowel habits (Acute) Cataracts, bilateral (Acute) Diabetic foot ulcer (Acute) Nausea and vomiting (Acute) Screening for colon cancer (Acute) CKD (chronic kidney disease) (Chronic) JOSE (obstructive sleep apnea) (Chronic) Depression with anxiety (Acute) Diabetic neuropathy (Acute) Obesity (Chronic) Peripheral edema (Acute) Bowel habit changes (Acute) Vitamin B12 deficiency (Acute) Decreased hearing (Acute) Screening for STD (sexually transmitted disease) (Acute) Neuropathic ulcer (Acute) Wound of right foot (Acute) Wound of left foot (Acute) Cellulitis of foot, right (Acute) Foreign body (FB) in soft tissue (Acute) Phimosis (Acute) Depression (Chronic) HTN (hypertension) with goal to be determined (Chronic) Diabetes (Chronic) Medical History Erectile dysfunction Anxiety Calculus of distal left ureter Fatty liver Surgical History History of Whipple procedure (~02/2024) History of colonoscopy with polypectomy (~12/04/22) History of esophagogastroduodenoscopy (EGD) (~12/2023) H/O vasectomy History of cholecystectomy Family History Brother Diabetes Asthma Father Diabetes Angina pectoris Kidney failure Acute CVA (cerebrovascular accident) Sister Diabetes Mental and behavioral problem Mother , age 64 DM Diabetes Maternal Grandmother Cancer Social History Smoking/Tobacco Use Status: Never Smoking risk assessment performed?: Yes Alcohol Intake: current Alcohol Intake frequency: holidays/special occasions only Drug use: Never Substance use type: does not use Household members: children Housing: house Number of Children: 3 current occupation: [employer] What is your relationship status?: Panel score (0-1 are the most socially isolated patients): 0 Do you feel safe at home: Yes Do you feel safe in your relationship?: Yes
--- NOTE | 2025-06-24 01:44 | DI.[facility]_ITS ---
PROCEDURE INFORMATION: Exam: XR Chest Exam date and time: 06/24/2025 12:32 AM Age: 49 years old Clinical indication: Prior surgery; Surgery date: 6+ months; Surgery type: Powerport; Tachycardia. Patient states they have abd cancer TECHNIQUE: Imaging protocol: Radiologic exam of the chest. Views: 1 view. COMPARISON: CT CHEST/ABD/PEL W 05/17/2025 10:09 AM FINDINGS: Tubes, catheters and devices: Right chest wall port present. Lungs: Low lung volumes. Lungs are clear. Pleural spaces: Unremarkable. No pleural effusion. No pneumothorax. Heart/Mediastinum: Unremarkable. No cardiomegaly. Bones/joints: Unremarkable. IMPRESSION: No acute findings. Dictated and Authenticated by: Davy Zamorano MD. Orderin Prachi Meyers MD
[2025-06-24 01:48] LABS: Troponin I 15 ng/L (<or=76)
[2025-06-24] MEDS: Omnipaque 350 MG/ML 100 ML BTL IJ (01:53)
[2025-06-24] MEDS: Normal Saline - Diluent 50 ML VIAL IJ (01:53)
[2025-06-24 01:54] LABS: TSH (W/Ref FT4) 1.46 uIU/mL (0.36-3.74)
[2025-06-24] MEDS: Normal Saline Flush 10 ML SYR IVP ×3 (01:54→20:37)
--- NOTE | 2025-06-24 01:57 | DI.CT_ITS ---
Exam(s) CT CHEST PE CTA EXAM: CT CHEST PE CTA CLINICAL HISTORY: tachycardia, cancer. TECHNIQUE: Imaging Protocol: Axial CT angiography was performed with multi- slice acquisition and multi-planar and/or 3D reconstructions. Lung Computer Aided Detection (CAD) was utilized. CONTRAST MATERIAL: Intravenous: Omnipaque 350 contrast volume:90 mL COMPARISON: CT CT CHEST PE ABD PELVIS W from 03/24/[address] CHEST/ABD/PEL W from 11/15/[address] CHEST/ABD/PEL W from 05/17/2025 FINDINGS: Tracheobronchial tree: Patent where visualized. No bronchiectasis. Pulmonary parenchyma: No consolidation or dominant measurable mass. No architectural distortion. Pulmonary Arteries: No evidence of filling defect to suggest pulmonary emboli. Mediastinum and Yuliya: No dominant adenopathy or fluid collection. The esophagus is unremarkable. Visualized thyroid gland: Unremarkable. Pleura: No effusion or pneumothorax. Heart: The heart is not dilated. No coronary artery calcifications are seen. No pericardial effusion. Aorta: Thoracic aorta non-dilated. No evidence of dissection. Upper abdomen: Unremarkable. Tubes, Catheters, and Lines: There is a right-sided chest wall port. Soft tissues: Mild gynecomastia. Bones: Within normal limits for the patient's age. IMPRESSION: 1. No evidence of pulmonary embolism, thoracic aortic dissection or aneurysm. 2. There is no acute pulmonary process. 3. The preliminary [facility] report was reviewed. RADIATION DOSE DELIVERED: 137.79mGy.cm Total DLP DATA REPOSITORY: All CT scans at this facility are submitted to the National Radiology Data Registry (NRDR) Dose Index Registry (DIR) with the [employer] (ACR). RADIATION OPTIMIZATION: All CT scans at this facility use at least one of these dose optimization techniques: automated exposure control; mA and/or kV adjustment per patient size (includes targeted exams where dose is matched to clinical indication); or iterative reconstruction.
--- NOTE | 2025-06-24 02:19 | DI.[facility]_ITS ---
PROCEDURE INFORMATION: Exam: CTA Chest With Contrast Exam date and time: 06/24/2025 1:34 AM Age: 49 years old Clinical indication: Prior surgery; Surgery date: 6+ months; Surgery type: Whipple. Cholecystectomy. Powerport; Tachycardia, cancer. Patient has abd cancer TECHNIQUE: Imaging protocol: Computed tomographic angiography of the chest with contrast. Exam focused on the arteries. 3D rendering (Not supervised by radiologist): MIP and/or 3D reconstructed images were created by the technologist. Radiation optimization: All CT scans at this facility use at least one of these dose optimization techniques: automated exposure control; mA and/or kV adjustment per patient size (includes targeted exams where dose is matched to clinical indication); or iterative reconstruction. Contrast material: [id number]; Contrast volume: 90 ml; Contrast route: INTRAVENOUS (IV); COMPARISON: CT CHEST PE ABD PELVIS W 03/24/2024 4:20 PM FINDINGS: Tubes, catheters and devices: Right chest wall port. Pulmonary arteries: Normal. No pulmonary emboli. Aorta: Unremarkable. No aortic aneurysm. No aortic dissection. Lungs: Unremarkable. No consolidation. No masses. Pleural spaces: Unremarkable. No pneumothorax. No pleural effusion. Heart: Unremarkable. No pericardial effusion. Esophagus: Unremarkable. Lymph nodes: Unremarkable. No enlarged lymph nodes. Bones/joints: Unremarkable. No acute fracture. Soft tissues: Unremarkable. IMPRESSION: No acute findings. Dictated and Authenticated by: Davy Zamorano MD. Orderin Prachi Meyers MD
[2025-06-24] MEDS: dilTIAZem 30 MG TAB PO (02:35)
[2025-06-24] MEDS: LORazepam 1 MG TAB (02:41)
--- NOTE | 2025-06-24 02:44 | NUR.NOTE ---
diltiazem drip on hold per verbal order from ED MD pending PTs response to iv push and PO diltiazem Nursing Note:
[2025-06-24] MEDS: dilTIAZem 125 MG in Normal Saline 100 ML 10 MG IV (03:48)
[2025-06-24 04:29] LABS: Troponin I 16 ng/L (<or=76)
--- NOTE | 2025-06-24 04:47 | W.PM.HP.N ---
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 He had new onset atrial fibrillation and will need echocardiogram and has been initiated on Eliquis. Cardioversion may be an option as an outpatient if he stabilizes. He is controlled on a diltiazem drip which has been adjusted and we could add metoprolol orally if needed. Blood pressure has been stable. His troponins are negative and he has no evidence of ischemia. Cardiology stated that he could continue his chemotherapy while treating this problem. He will be converted to oral therapy prior to discharge. Cardiology will need to follow the patient as an outpatient and they will advise on whether patient should consider adjustment of medical therapy for conversion versus cardioversion. He is a full code. (2) Chemotherapy induced nausea and vomiting: Start date: 06/24/25 Status: Acute Assessment and plan: Continue symptomatic care with IV hydration as needed. Clear fluid diet and advance as tolerated. (3) Adenocarcinoma of duodenum: Status: Chronic Assessment and plan: Followed by oncology at [facility] and will continue infusion of chemotherapy over the next 24 hours. He is status post Whipple's procedure and is on pancreatic enzyme replacement when he does eat. (4) Hypertension: Status: Chronic Assessment and plan: Adjust medical therapy while patient is hospitalized watch for hypotension with fluid loss. (5) JOSE (obstructive sleep apnea): Status: Chronic Assessment and plan: Continue home CPAP measurements. will bring in his home machine. (6) Diabetes: Status: Chronic Assessment and plan: Outpatient medication will be held with patient having glucometer measurements before meals and at bedtime with sliding scale coverage. (7) Depression: Status: Chronic Assessment and plan: Continue outpatient medical therapy. Patient does take Ativan as needed but review of the PDMP, Ativan has not been prescribed since 2023 and this should be reconciled by pharmacy. He is on a SSRI will be continued. History of Present Illness History of Present Illness Chief Complaint: Nausea and vomiting over the last 24 hours with chemotherapy initiation. Narrative: This is a 49-year-old male patient speaks with a very heavy [place] accent. He presents with rapid and irregular heart rate according to his partner who is a nurse after having nausea and vomiting with poor intake for about 24 hours. He has recently restarted some chemotherapy after being diagnosed with adenocarcinoma of the duodenum 2 years prior to this admission with endoscopic resection initially and then recurrence 1 year ago requiring Whipple procedure. He is on pancreatic enzyme replacement with his meals. He is receiving outpatient chemotherapy with the port with the pump being used at home and is in the middle of his most recent treatment. This will be continued during his hospital stay. He presented with a rapid heart rate and irregular rhythm and in the ED he was diagnosed with atrial fibrillation with rapid ventricular response with minimal symptoms. His nausea was controlled with Compazine. He did receive IV diltiazem and then was initiated on IV diltiazem infusion with better rate control. He was admitted to ICU for continued observation for heart rate control. He will need an echocardiogram and conversion to oral therapy once he stabilizes. His troponins were negative with trending. He does not appear to have any ischemic changes on EKG or telemetry. As stated, he is not having chest pain or sensation of palpitations. Since his diagnosis of cancer he has not lost much weight and is overweight with diabetes. He does have some neuropathy with this problem. He has no GI complaints other than nausea with vomiting and no complaints. He denies any shortness of breath. He has no focal neurological complaints. The patient will be started on Eliquis and is agreeable to this with [facility] cardiology consulted by the ED physician. They did not recommend immediate cardioversion and did advise outpatient cardioversion if needed after being on Eliquis for at least 2 weeks. The patient offers no other complaints. He is a full code. Review of Systems Narrative: 13 point review of systems otherwise unrevealing or stable. PFSH All Active Problems (Updated 06/24/25 @ 07:43 by Joe Renae) Chemotherapy induced nausea and vomiting (Acute) Atrial fibrillation with rapid ventricular response (Acute) Atrial fibrillation with rapid ventricular response (Acute) Hypertension (Chronic) Burn of right leg (Acute) Foot ulcer, left (Acute) Cellulitis (Acute) Ulcer of right foot with fat layer exposed (Acute) Hyperpigmented skin lesion (Acute) Nevus (Acute) Adenocarcinoma of duodenum (Chronic) Peripheral neuropathy (Acute) Venous insufficiency (Acute) Plantar fascial fibromatosis of left foot (Acute) Ulcer of left foot, limited to breakdown of skin (Acute) Type 2 diabetes mellitus with diabetic nephropathy (Acute) Type 2 diabetes mellitus without complication (Acute) Tubulovillous adenoma (Acute ~12/04/22) Tubular adenoma (Acute ~12/04/22) Steatosis (Acute) Duodenal nodule (Acute) Abnormal abdominal CT scan (Acute) Abnormal bowel habits (Acute) Cataracts, bilateral (Acute) Diabetic foot ulcer (Acute) Nausea and vomiting (Acute) Screening for colon cancer (Acute) CKD (chronic kidney disease) (Chronic) JOSE (obstructive sleep apnea) (Chronic) Depression with anxiety (Acute) Diabetic neuropathy (Acute) Obesity (Chronic) Peripheral edema (Acute) Bowel habit changes (Acute) Vitamin B12 deficiency (Acute) Decreased hearing (Acute) Screening for STD (sexually transmitted disease) (Acute) Neuropathic ulcer (Acute) Wound of right foot (Acute) Wound of left foot (Acute) Cellulitis of foot, right (Acute) Foreign body (FB) in soft tissue (Acute) Phimosis (Acute) Depression (Chronic) HTN (hypertension) with goal to be determined (Chronic) Diabetes (Chronic) Medical History (Updated 06/24/25 @ 07:43 by Joe Renae) Erectile dysfunction Anxiety Calculus of distal left ureter Fatty liver Surgical History History of Whipple procedure (~02/2024) History of colonoscopy with polypectomy (~12/04/22) History of esophagogastroduodenoscopy (EGD) (~12/2023) H/O vasectomy History of cholecystectomy Family History Brother Diabetes Asthma Father Diabetes Angina pectoris Kidney failure Acute CVA (cerebrovascular accident) Sister Diabetes Mental and behavioral problem Mother , age 64 DM Diabetes Maternal Grandmother Cancer Social History Smoking/Tobacco Use Status: Never Smoking risk assessment performed?: Yes Alcohol Intake: current Alcohol Intake frequency: holidays/special occasions only Drug use: Never Substance use type: does not use Household members: children Housing: house Number of Children: 3 current occupation: [employer] What is your relationship status?: Panel score (0-1 are the most socially isolated patients): 0 Do you feel safe at home: Yes Do you feel safe in your relationship?: Yes Meds Allergies and Home Medications Allergies Allergy/AdvReac Type Severity Reaction Status Date / Time Penicillins Allergy Intermediate Anaphylaxsi Verified 06/24/25 00:20 s Home Medications Medication Instructions Recorded Confirmed Type gabapentin 600 mg tablet 600 mg PO HS PRN 02/24/24 06/24/25 History onlmci-aqtbrsbz-qfnjrdy 4 cap PO TIDWMEAL 04/06/24 06/24/25 History 40,000-126,000-168,000 unit capsule, delay rel (Zenpep) omeprazole 20 mg capsule,delayed 20 mg PO DAILY 04/06/24 06/24/25 History release acetaminophen 325 mg tablet 650 mg PO Q6H PRN 05/31/24 06/24/25 History ergocalciferol (vitamin D2) 1,250 5,000 mcg PO QWEEK 05/31/24 06/24/25 History mcg (50,000 unit) capsule insulin lispro 100 unit/mL See Rx Instructions .Route .COMPLEX 05/31/24 06/24/25 History subcutaneous solution (Humalog U-100 Insulin) prochlorperazine maleate 10 mg 10 mg PO Q8H PRN 05/31/24 06/24/25 History tablet tadalafil 20 mg tablet 20 mg PO DAILY PRN 05/31/24 06/24/25 History polyethylene glycol 3350 17 17 g PO DAILY 07/02/24 06/24/25 History gram/dose oral powder citalopram 40 mg tablet 40 mg PO DAILY 12/06/24 06/24/25 History diphenoxylate-atropine 2.5 1 tab PO QID PRN 12/06/24 06/24/25 History mg-0.025 mg tablet fexofenadine 180 mg tablet 180 mg PO DAILY 12/06/24 06/24/25 History (Leslie Allergy) glucagon 3 mg/actuation nasal 3 mg intranasal ONCE PRN 12/06/24 06/24/25 History spray (Baqsimi) hypoglycemia qbadky-wzizfwia-fnwvlmq 2 cap PO TID PRN snack 12/06/24 06/24/25 History 40,000-126,000-168,000 unit capsule, delay rel (Zenpep) magnesium chloride 71.5 mg 71.5 mg PO DAILY 12/06/24 06/24/25 History (magnesium chloride) tablet,delayed release (Slow-Mag) multivitamin with minerals-folic 1 tab PO DAILY 12/06/24 06/24/25 History acid 200 mcg chewable tablet (Adult Multivitamin Gummies) ondansetron 8 mg disintegrating 8 mg PO Q8H PRN nausea and vomiting 12/06/24 06/24/25 History tablet lorazepam 0.5 mg tablet 0.5 mg PO DAILY PRN 04/07/25 06/24/25 History blood-glucose sensor (Dexcom G7 06/24/25 06/24/25 History Sensor device) cyanocobalamin (vitamin B-12) 1,000 mcg PO .COMPLEX 06/24/25 06/24/25 History 1,000 mcg tablet fish oil-dha-epa 1 cap PO DAILY 06/24/25 06/24/25 History furosemide 40 mg tablet 40 mg PO BID 06/24/25 06/24/25 History insulin pump cart,auto,BT,G6/7 06/24/25 06/24/25 History (Omnipod 5 G6-G7 Pods (Gen 5) subcutaneous cartridge) Exam Narrative Exam Narrative: General: Patient is moderately obese, alert and oriented x 3 and in no acute distress. He has normal speech dmitry with a heavy [place] accent. HEENT: Normocephalic, eyes with pupils equal and react light specially, extraocular movement intact and sclera anicteric. Oropharynx with dry mucosa. Neck: Supple without JVD. Heart: Irregularly irregular rhythm with tachycardia, no murmurs gallops appreciated. Chest: Subcutaneous port over right upper chest with tubing coming from a pump which is attached to his waist. Lungs: Fair aeration clear to auscultation percussion. No expiratory wheeze and no inspiratory rales or rhonchi. Abdomen: Mildly obese contour, soft and nontender to palpation with no palpable hepatosplenomegaly. Genitalia/rectal: Exam deferred. Extremities: Nonpitting edema, no cyanosis or clubbing. Peripheral pulses intact. Skin: Normal color, warm and dry. Patient does have fair skin with multiple freckles and red hair. Neuro: Cranial nerves II through XII gross intact, no focalized motor deficits or tremor. Psych: Slightly depressed mood but not anxious at the time of exam. No abnormal thought processes. Remote and recent memory intact. Results Imaging Imaging Studies: Exam: CTA Chest With Contrast Exam date and time: 06/24/2025 1:34 AM Age: 49 years old Clinical indication: Prior surgery; Surgery date: 6+ months; Surgery type: Whipple. Cholecystectomy. Powerport; Tachycardia, cancer. Patient has abd cancer COMPARISON: CT CHEST PE ABD PELVIS W 03/24/2024 4:20 PM FINDINGS: Tubes, catheters and devices: Right chest wall port. Pulmonary arteries: Normal. No pulmonary emboli. Aorta: Unremarkable. No aortic aneurysm. No aortic dissection. Lungs: Unremarkable. No consolidation. No masses. Pleural spaces: Unremarkable. No pneumothorax. No pleural effusion. Heart: Unremarkable. No pericardial effusion. Esophagus: Unremarkable. Lymph nodes: Unremarkable. No enlarged lymph nodes. Bones/joints: Unremarkable. No acute fracture. Soft tissues: Unremarkable. IMPRESSION: No acute findings. Exam: XR Chest Exam date and time: 06/24/2025 12:32 AM Age: 49 years old Clinical indication: Prior surgery; Surgery date: 6+ months; Surgery type: Powerport; Tachycardia. Patient states they have abd cancer TECHNIQUE: Imaging protocol: Radiologic exam of the chest. Views: 1 view. COMPARISON: CT CHEST/ABD/PEL W 05/17/2025 10:09 AM FINDINGS: Tubes, catheters and devices: Right chest wall port present. Lungs: Low lung volumes. Lungs are clear. Pleural spaces: Unremarkable. No pleural effusion. No pneumothorax. Heart/Mediastinum: Unremarkable. No cardiomegaly. Bones/joints: Unremarkable. IMPRESSION: No acute findings. Labs 06/24/25 00:25 06/24/25 00:25 Labs: Laboratory Results - last 24 hr 06/24/25 06/24/25 06/24/25 00:25 01:25 04:00 WBC 9.60 RBC 6.83 H Hgb 15.1 Hct 48.1 MCV 70 L MCH 22.1 L MCHC 31.4 L RDW 18.0 H Plt Count 188 MPV Immature Gran % 0.3 Neutrophils % 90.2 Lymphocytes % 7.3 Monocytes % 2.0 Eosinophils % 0.0 Basophils % 0.2 Nucleated RBC % 0.0 Absolute Neutrophils 8.66 H Absolute Lymphocytes 0.70 L Absolute Monocytes 0.19 Absolute Eosinophils 0.00 Absolute Basophils 0.02 RBC Morphology See Below Microcytosis 1+ PT 10.9 INR 1.1 APTT 26.1 Sodium 137 Potassium 4.1 Chloride 99 Carbon Dioxide 25.6 Anion Gap 12.4 H BUN 11 Creatinine 1.1 Est GFR (CKD-EPI 2020) 81.78 Glucose 254 H Calcium 9.2 Magnesium 1.9 Total Bilirubin 0.5 AST 18 ALT 38 Alkaline Phosphatase 151 H Troponin I 11 15 16 NT-Pro-B Natriuret Pep 130 Total Protein 8.3 H Albumin 4.1 TSH 1.46 Last Vital Signs Temp 36.9 C 06/24/25 00:15 Pulse 67 06/24/25 04:10 Resp 14 06/24/25 04:10 BP 130/93 H 06/24/25 04:00 Pulse Ox 97 06/24/25 04:10 Time Spent Time spent with Patient: >75 minutes Time was spent: preparing to see the patient(eg.review tests), obtaining and/or reviewing separately otained hiistory, ordering medications,tests, procedures, referring, communicating with other health aged or disabled carer, indepentently interpreting results and care coordination
[2025-06-24] MEDS: Apixaban 5 MG TAB PO ×3 (04:53→21:04)
--- NOTE | 2025-06-24 05:32 | W.PCEDHO ---
Registration Status: REG ER Primary Language: Preferred Language: [place]ian ED Information & Data Chief Complaint Arrhythmia 06/24/25 01:16 Triage Note First dose of a new chemo 06/24/25 00:15 drug today. Noticed increased and irregular heartbeat around 2200 tonight. Became weak. Persistent nausea. Medical / Surgical History (Last Reviewed 06/24/25 @ 04:48 by Joe Renae) Erectile dysfunction Anxiety Calculus of distal left ureter Fatty liver (Last Reviewed 06/24/25 @ 04:48 by Joe Renae) History of Whipple procedure (~02/2024) History of colonoscopy with polypectomy (~12/04/22) History of esophagogastroduodenoscopy (EGD) (~12/2023) H/O vasectomy History of cholecystectomy Most Recent Vital Signs Temperature 36.9 C 06/24/25 00:15 Pulse 90 06/24/25 05:01 Pulse 113 H 06/24/25 05:01 Respiratory Rate 19 06/24/25 05:01 Blood Pressure 151/82 H 06/24/25 05:01 Blood Pressure Mean 104 06/24/25 05:01 Blood Pressure Position Sitting 06/24/25 00:15 Pulse Oximetry 94 06/24/25 05:01 Oxygen Delivery Method Room Air 06/24/25 00:15 Oxygen Flow Rate 0 06/24/25 00:15 Allergies Penicillins Allergy (Intermediate, Verified 06/24/25 00:20) Anaphylaxsis Active Medications Generic Name Dose Route Start Last Admin Trade Name Freq PRN Reason Stop Dose Admin Diltiazem HCl 125 mg/ Sodium 125 mls @ 0 mls/hr 06/24/25 02:30 06/24/25 04:39 Chloride IV 15 mls/hr INFUSION MIRTA 15 mls/hr Protocol Titration Per Protocol Iohexol 100 ml 06/24/25 02:00 06/24/25 01:53 Omnipaque 350 Mg/Ml 100 Ml Btl IJ 07/24/25 23:59 90 ml DIRECTED MIRTA Administration Sodium Chloride 50 ml 06/24/25 02:00 06/24/25 01:53 Normal Saline - Diluent 50 Ml Vial IJ 50 ml DIRECTED MIRTA Administration Sodium Chloride 0 ml 06/24/25 01:52 06/24/25 01:54 Normal Saline Flush 10 Ml Syr IVP 10 ml PRN PRN Administration IV IV Catheter Type [Right Saline Lock Antecubital] IV Catheter Gauge [Right 18 Antecubital] Diagnostics 06/24/25 06/24/25 06/24/25 Range/Units 05:14 04:00 01:25 WBC (4.4-10.8) 10^3/uL RBC (4.36-5.78) 10^6/uL Hgb (13.5-17.5) g/dL Hct (40.0-50.0) % MCV (80-95) fL MCH (27.0-33.0) pg MCHC (32.0-36.0) % RDW (11.8-14.1) % Plt Count (130-400) 10^3/uL MPV (8.0-11.0) fL Immature Gran % % Neutrophils % % Lymphocytes % % Monocytes % % Eosinophils % % Basophils % % Nucleated RBC % (0.0-0.3) % Absolute Neutrophils (1.2-6.7) 10^3/uL Absolute Lymphocytes (1.2-3.4) 10^3/uL Absolute Monocytes (0.1-0.8) 10^3/uL Absolute Eosinophils (0.0-0.7) 10^3/uL Absolute Basophils (0.0-0.2) 10^3/uL RBC Morphology Microcytosis PT (9.1-11.1) sec INR (0.9-1.1) APTT (20.6-30.2) sec Sodium (136-145) mmol/L Potassium (3.5-5.1) mmol/L Chloride (98-107) mmol/L Carbon Dioxide (21.0-32.0) mmol/L Anion Gap (3-11) mmol/L BUN (7-18) mg/dL Creatinine (0.70-1.30) mg/dL Est GFR (CKD-EPI 2020) (mL/min/1.73m2) Glucose (74-106) mg/dL Calcium (8.5-10.1) mg/dL Magnesium (1.8-2.4) mg/dL Total Bilirubin (0.2-1.0) mg/dL AST (15-37) U/L ALT (16-63) U/L Alkaline Phosphatase (46-116) U/L Troponin I 16 15 (<or=76) ng/L NT-Pro-B Natriuret Pep (<300) pg/mL Total Protein (6.4-8.2) g/dL Albumin (3.4-5.0) g/dL TSH 1.46 (0.36-3.74) uIU/mL COVID-19 Source Pending SARS-CoV-2 (PCR) Pending Influenza Type A (PCR) Pending Influenza Type B (PCR) Pending RSV (PCR) Pending Path Cons Comment 06/24/25 Range/Units 00:25 WBC 9.60 (4.4-10.8) 10^3/uL RBC 6.83 H (4.36-5.78) 10^6/uL Hgb 15.1 (13.5-17.5) g/dL Hct 48.1 (40.0-50.0) % MCV 70 L (80-95) fL MCH 22.1 L (27.0-33.0) pg MCHC 31.4 L (32.0-36.0) % RDW 18.0 H (11.8-14.1) % Plt Count 188 (130-400) 10^3/uL MPV (8.0-11.0) fL Immature Gran % 0.3 % Neutrophils % 90.2 % Lymphocytes % 7.3 % Monocytes % 2.0 % Eosinophils % 0.0 % Basophils % 0.2 % Nucleated RBC % 0.0 (0.0-0.3) % Absolute Neutrophils 8.66 H (1.2-6.7) 10^3/uL Absolute Lymphocytes 0.70 L (1.2-3.4) 10^3/uL Absolute Monocytes 0.19 (0.1-0.8) 10^3/uL Absolute Eosinophils 0.00 (0.0-0.7) 10^3/uL Absolute Basophils 0.02 (0.0-0.2) 10^3/uL RBC Morphology See Below Microcytosis 1+ PT 10.9 (9.1-11.1) sec INR 1.1 (0.9-1.1) APTT 26.1 (20.6-30.2) sec Sodium 137 (136-145) mmol/L Potassium 4.1 (3.5-5.1) mmol/L Chloride 99 (98-107) mmol/L Carbon Dioxide 25.6 (21.0-32.0) mmol/L Anion Gap 12.4 H (3-11) mmol/L BUN 11 (7-18) mg/dL Creatinine 1.1 (0.70-1.30) mg/dL Est GFR (CKD-EPI 2020) 81.78 (mL/min/1.73m2) Glucose 254 H (74-106) mg/dL Calcium 9.2 (8.5-10.1) mg/dL Magnesium 1.9 (1.8-2.4) mg/dL Total Bilirubin 0.5 (0.2-1.0) mg/dL AST 18 (15-37) U/L ALT 38 (16-63) U/L Alkaline Phosphatase 151 H (46-116) U/L Troponin I 11 (<or=76) ng/L NT-Pro-B Natriuret Pep 130 (<300) pg/mL Total Protein 8.3 H (6.4-8.2) g/dL Albumin 4.1 (3.4-5.0) g/dL TSH (0.36-3.74) uIU/mL COVID-19 Source SARS-CoV-2 (PCR) Influenza Type A (PCR) Influenza Type B (PCR) RSV (PCR) Path Cons Comment Pending Intake and Output - 24 Hour Total 06/24/25 00:10 thru 06/24/25 04:39 Intake Total 8.5 Output Total 350 Balance -341.5 Weight 128.367 kg Intake: IV 8.5 Output: Urine 350 Falls Risk Assessment History of Falls No History 06/24/25 00:19 Contributing Factors No Factors 06/24/25 00:19 Ambulatory Aids Independent 06/24/25 00:19 Tubes/Lines None 06/24/25 00:19 Gait Evaluation No gait disturbance 06/24/25 00:19 Cognition No cognitive impairment 06/24/25 00:19 Fall Total Score 0 06/24/25 00:19 Level of Risk Standard/Low Risk 06/24/25 00:19 Problems (Last Reviewed 06/24/25 @ 04:48 by Joe Renae) Colorectal cancer (Chronic) Atrial fibrillation with rapid ventricular response (Acute) Hypertension (Chronic) JOSE (obstructive sleep apnea) (Chronic) Diabetes (Chronic) Notes 06/24/25 02:44 Nursing Notes by Zeferino Fitzpatrick diltiazem drip on hold per verbal order from ED MD pending PTs response to iv push and PO diltiazem Nursing Note: Initialized on 06/24/25 02:44 - END OF NOTE 06/24/25 00:33 Nursing Notes by Zeferino Fitzpatrick ED MD verbal order to hold Cardizem Nursing Note: Initialized on 06/24/25 00:33 - END OF NOTE v v v v v v v v v Sending and/or Receiving Nurses: Please use comment section below to note any information pertinent to the patient hand-off not included above. Information / Comments: Report received from: Zeferino GODINEZ
[2025-06-24 06:13] LABS: COVID-19 PCR Negative (Negative); RSV PCR Negative (Negative)
--- NOTE | 2025-06-24 06:16 | TELEP.MEDR_ITS ---
Date of service: 06/24/25 Time of Service: 06:00 [facility] Allergies Allergies: Penicillins Allergy (Intermediate, Verified 06/24/25 00:20) Anaphylaxsis Interview Person Interviewed: Claritza steel Quality Quality of Interview/Accuracy of Medication List: Good Sources Sources used to compile medication list: CDNlion Medication List, SureScripts and Other Changes made to Home Medication List: ADDITIONS: * fish oil 1 cap daily * cyanocobalamin 1,000 mcg friday, fri, and fridays * Dexcom * Omnipod insulin pump DELETIONS: * duplicate furosemide 20 mg tab 40 mg bid * magnesium oxide * ondansetron 4 mg * loratadine 10 mg CHANGES: ergocalciferol once weekly on Friday HUmalog as directed in insulin pump up to 100 units per day Zenpep 40k- 4 caps tid meals; max 18 caps per day Zenpep 40K- 2 cap tid prn snacks max 18 caps per day Additional Notes Additional Notes: Due to chemo pre-medication, palonosetron for nausea given on 06/22/25 reported by Claritza; ondansetron should be held at least 3 days up to 5 days post dose Recommended Changes Attestation: The home medication list is now updated to the best of my knowledge and is ready to be reconciled by the provider. Please contact the [facility] Med[facility]con[facility] Pharmacist at for any questions.
--- NOTE | 2025-06-24 06:16 | TELEP.MEDREC ---
Date of service: 06/24/25 Time of Service: 06:00 [facility] Allergies Allergies: Penicillins Allergy (Intermediate, Verified 06/24/25 00:20) Anaphylaxsis Interview Person Interviewed: Claritza steel Quality Quality of Interview/Accuracy of Medication List: Good Sources Sources used to compile medication list: 6Sense Medication List, SureScripts and Other Changes made to Home Medication List: ADDITIONS: fish oil 1 cap daily cyanocobalamin 1,000 mcg friday, fri, and fridays Dexcom Omnipod insulin pump DELETIONS: duplicate furosemide 20 mg tab 40 mg bid magnesium oxide ondansetron 4 mg loratadine 10 mg CHANGES: ergocalciferol once weekly on Friday HUmalog as directed in insulin pump up to 100 units per day Zenpep 40k- 4 caps tid meals; max 18 caps per day Zenpep 40K- 2 cap tid prn snacks max 18 caps per day Additional Notes Additional Notes: Due to chemo pre-medication, palonosetron for nausea given on 06/22/25 reported by Claritza; ondansetron should be held at least 3 days up to 5 days post dose Recommended Changes Attestation: The home medication list is now updated to the best of my knowledge and is ready to be reconciled by the provider. Please contact the [facility] Medication Reconciliation Pharmacist at for any questions.
[2025-06-24] MEDS: Potassium Chloride 10 MEQ TABCR PO (08:29)
[2025-06-24] MEDS: Cyanocobalamin 500 MCG TAB 1000 MCG PO (08:30)
[2025-06-24] MEDS: Citalopram 20 MG TAB 40 MG PO (08:31)
[2025-06-24] MEDS: Pantoprazole 40 MG VIAL IVP (08:31)
[2025-06-24] MEDS: Insulin Aspart 300 UNITS/3 ML PEN SC ×4 (08:43→22:01)
--- NOTE | 2025-06-24 09:06 | PDOC.CMIN ---
Date of service: 06/24/25 Time of Service: 09:06 Care Management Initial Assmt Initial Assessment Reason for Hospitalization: afib with RVR Functional Status/Living Situation Patient Presentation: Charles presented to the ED early this morning with irregular HR that was noted by his fiance, who is an RN. Charles has metastatic colorectal cancer. He had had a chemo infusion earlier in the day, and had been vomiting consistently since. Vomiting persisted despite his taking compazine. Chalres was sleeping a lot today. He had been admitted in the very product merchandiser. CM was able to speak to him this afternoon. He was wearing O2, and he is still on a diltiazem drip. His HR was noted to be in the 70s. Charles was still sleepy, but he roused to talk for a few minutes. He was pleasant with CM. Charles lives with his damián and 4 of the 7 children that they co parent. He has recently received some very bad news regarding his health. Palliative consult was placed today. Charles was given the patient assistance packet to see if he would qualify for any help with his bill for services at [facility]. Town of Residence: [place] Resides with: Other (lives with Claritza steel, and 4 of the 7 children that they share) Natural Supports: family Instrumental Activities of Daily Living (ADLs): Independent Medications Medication Management: No Issues/Barriers identified Advance Directives Advance Directives: Do you have an Advance Directive: N 09/03/18, 14:59 AD On File at [facility]: N 01/04/14, 17:06 Date Asked 06/17/25 06/17/25, 15:26 AD Date Reviewed COLST On File at [facility] No 09/23/22, 19:25 COLST Date Scanned Code Status Resuscitation Status Full Code Insurance Coverage/Financial Issues Insurance: [facility] Resources Care Team Visit Care Team Role Provider Type Gabriel Montilla MD MD [facility] STAFF PHYSICIAN Olga Hoffman Primary Care Provider ADV PRACTICE REGISTERED NURSE Tesha Shane RDN, [facility] Other Providers [facility] Warren Juárez RDN Other Providers [facility] Mira Velarde MD Emergency Provider [facility] STAFF PHYSICIAN Joe Renae Admit Provider NON-[facility] STAFF PHYSICIAN Attending Provider Discharge Potential Discharge Needs: Consult (palliative care, budget manager) Consult Services Needed: Cardiology, Imaging/labs (echocardiogram) and PCP F/U Appt Anticipated Barriers to Discharge: None Identified Patient/Family Education Needs: Review discharge instructions, discuss Ask Me Three Transportation: Private vehicle Plan: Dax will discharge home once medically cleared. He will f/u with his PCP, his oncology team, and perhaps cardiology. He will transport home in a private vehicle. CM will continue to monitor and update the plan as needed. Social Determinants of Health Screening Social Determinants of health last assessed in clinic: 06/24/25 Will the Patient Participate in the Screening?: Yes Do you worry about having a steady place to live?: no Problems where you live: no known problems In the past 12 months, have you had to go without electric, gas, oil or water in your home?: no 1. Within the past 12 months, we worried whether our food would run out before we got money to buy more.: Don't know/refused 2. Within the past 12 months, the food we bought just didn't last and we didn't have money to get more.: Don't know/refused Has lack of transportation kept you from medical appointments or from doing things needed for daily living?: no Has anyone in your life made you feel unsafe or unsupported?: no How hard is it for you to pay for the very basics like food, housing, medical care, and heating? Would you say it is:: Somewhat hard Do you want help finding or keeping work or a job?: I do not need or want help If for any reason you need help with day-to-day activities such as bathing, preparing meals, shopping, managing finances, etc., do you get the help you need?: I get all the help I need How often do you feel lonely or isolated from those around you?: Never Do you speak a language other than Puerto Rican at home?: No Does the patient want assistance with any of the above?: No Health Related Social Needs Health related social needs: problems related to housing/economic circumstances (Z59.89) Health related social needs details: States he does not need further help at this time. PFSH All Active Problems (Updated 06/24/25 @ 07:43 by Joe Renae) Chemotherapy induced nausea and vomiting (Acute) Atrial fibrillation with rapid ventricular response (Acute) Atrial fibrillation with rapid ventricular response (Acute) Hypertension (Chronic) Burn of right leg (Acute) Foot ulcer, left (Acute) Cellulitis (Acute) Ulcer of right foot with fat layer exposed (Acute) Hyperpigmented skin lesion (Acute) Nevus (Acute) Adenocarcinoma of duodenum (Chronic) Peripheral neuropathy (Acute) Venous insufficiency (Acute) Plantar fascial fibromatosis of left foot (Acute) Ulcer of left foot, limited to breakdown of skin (Acute) Type 2 diabetes mellitus with diabetic nephropathy (Acute) Type 2 diabetes mellitus without complication (Acute) Tubulovillous adenoma (Acute ~12/04/22) Tubular adenoma (Acute ~12/04/22) Steatosis (Acute) Duodenal nodule (Acute) Abnormal abdominal CT scan (Acute) Abnormal bowel habits (Acute) Cataracts, bilateral (Acute) Diabetic foot ulcer (Acute) Nausea and vomiting (Acute) Screening for colon cancer (Acute) CKD (chronic kidney disease) (Chronic) JOSE (obstructive sleep apnea) (Chronic) Depression with anxiety (Acute) Diabetic neuropathy (Acute) Obesity (Chronic) Peripheral edema (Acute) Bowel habit changes (Acute) Vitamin B12 deficiency (Acute) Decreased hearing (Acute) Screening for STD (sexually transmitted disease) (Acute) Neuropathic ulcer (Acute) Wound of right foot (Acute) Wound of left foot (Acute) Cellulitis of foot, right (Acute) Foreign body (FB) in soft tissue (Acute) Phimosis (Acute) Depression (Chronic) HTN (hypertension) with goal to be determined (Chronic) Diabetes (Chronic) Medical History (Updated 06/24/25 @ 07:43 by Joe Renae) Erectile dysfunction Anxiety Calculus of distal left ureter Fatty liver Surgical History History of Whipple procedure (~02/2024) History of colonoscopy with polypectomy (~12/04/22) History of esophagogastroduodenoscopy (EGD) (~12/2023) H/O vasectomy History of cholecystectomy Family History Brother Diabetes Asthma Father Diabetes Angina pectoris Kidney failure Acute CVA (cerebrovascular accident) Sister Diabetes Mental and behavioral problem Mother , age 64 DM Diabetes Maternal Grandmother Cancer Social History Smoking/Tobacco Use Status: Never Smoking risk assessment performed?: Yes Alcohol Intake: current Alcohol Intake frequency: holidays/special occasions only Drug use: Never Substance use type: does not use Household members: children Housing: house Number of Children: 3 current occupation: [employer] What is your relationship status?: Panel score (0-1 are the most socially isolated patients): 0 Do you feel safe at home: Yes Do you feel safe in your relationship?: Yes
[2025-06-24] MEDS: Gabapentin 600 MG TAB (10:20)
[2025-06-24] MEDS: dilTIAZem 125 MG in Normal Saline 100 ML 15 MG IV ×2 (11:40→18:07)
--- NOTE | 2025-06-24 12:32 | TELEFU_ITS ---
Date of service: 06/24/25 Time of Service: 12:32 Nutrition Note NOTE: nutrition referral received re: diabetes ed/mgt. 49yo male in ICU on clear liquid diet currently for chemo induced n/v and Afib. [place] [facility] [place] - whipple prcedure summer - on PERT at home for meals/snacks. Hx of cholecystectomy. Last A1c last selene 9.0% with recent hx of >8.5% PT states chemo infusions have influenced his glucose. Usually uses omni pod pump at home - ordered for mod sliding scale novolog here at meals. glucose fs running above 220 at braekfast and lunch times today. Refused breakfast - vomited last at 10am this morning. Has had some weight loss d/t cancer tx - wt hx shows ~6kg loss over the 18 months. Did not have a lengthy conversation as pt nauseated. Will monitor and support diet advancement as he feels ready - will offer oral nutrition supplements as appropriate/desired. Nutrition dx: Altered GI fxn related to recent whipple procedure/duodenal cancer. inadequate oral intake related to new chemo medication inducing n/v. Pt not appropriate for in-depth education at this time d/t acute nausea. Intervention: -Will monitor po intake/toleration and support with ONS as appropriate/indicated. -with patient not eating well and elevated glucose, would suggest starting at 15u insulin glargine and titrating up until fasting glucose is 140 or less, continuing with meal corrections per sliding scale. Monitoring: glucose, po intake, nutrition-related labs. Time Spent in Nutritional Counseling and Treatment: 10 min
[2025-06-24] MEDS: Prochlorperazine 10 MG/2 ML VIAL IVP ×2 (13:38→20:37)
--- NOTE | 2025-06-24 14:08 | PCNE_ITS ---
Date of service: 06/24/25 Time of Service: 13:50 History of Present Illness Narrative: It was a pleasure to meet with Charles. He was seen in his ICU room. He was alone at the time of the visit. 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 He had a whipple in 02/2024 and underwent treatment with Folfox x12 cycles ending 10/2024. He as recently discovered to have recurrent and metastatic disease. He is now on therapy with FOLFIRI, starting 06/23/25. He will receive infusion x48h every 2 weeks. He is very nauseated/vomiting. He received compazine. Zofran is on hold until Friday due to him receiving palonosetron as a prechemo medication. The nausea is his worst Sx. He has not experienced a lot of pain. Some other medications to consider could be adding PO dexamethasone, lorazepam, haloperidol if the compazine is not sufficient. There was discussion at his last oncology visit about referral to Palliative care, specifically Jenelle Bowman NP. They also discussed second opinion at [facility] and a referral was sent. Charles's biggest concern is for his children and his significant other, Claritza. He has 3 of his own children, age 14-17years old. Claritza has 4 children, all are out of the house except her youngest who is 17. Charles's parents both young and therefore were not around to be grandparents to his children. He always promised his kids that he would be a grandfather to their kids and now he feels the cancer is taking that from him. He is also worried about his significant other, Claritza, having to take on too much. Charles was very tired due to being up most of the night and feeling nauseated so he was allowed to rest. Phone call to Claritza- She states she wants Palliative to be involved to make sure the children have the support that they need. She wants help defining his goals and help to support him and honoring his wishes. She is interested in completing AD. Briefly discussed CODE status/COLST form with Claritza. He is a FULL code at this time. Claritza reports that Charles moved to the [place] in [place], he has a green card and is worried about his children receiving survival benefits. It appears that if he has a social security card and has worked enough years, they would probably be eligible. He is still working at [employer] and plans to work as long as he can. Assessment and Plan Assessment and plan (1) Atrial fibrillation with rapid ventricular response: Start date: 06/24/25 Status: Acute Assessment and plan: He is in the ICU for this Dx. (2) Chemotherapy induced nausea and vomiting: Start date: 06/24/25 Status: Acute Assessment and plan: This is his worse Sx. He has received compazine. Zofran on hold until Friday. Some other medications to consider could be adding PO dexamethasone, lorazepam, haloperidol if the compazine is not sufficient. (3) Adenocarcinoma of duodenum: Status: Chronic Assessment and plan: Followed by oncology at [facility] [place]. He is status post Whipple procedure 02/2024 and is on pancreatic enzyme replacement. He is noted to have recent disease recurrence with mets to lymph nodes and liver (per onc note). He is now on therapy with FOLFIRI, starting 06/23/25. He will receive infusion x48h every 2 weeks. He is experiencing N/V as above. He denies pain. (4) Hypertension: Status: Chronic (5) JOSE (obstructive sleep apnea): Status: Chronic Assessment and plan: On CPAP. (6) Diabetes: Status: Chronic (7) Depression: Status: Chronic Assessment and plan: He is on a SSRI. He has used lorazepam in the past. (8) Palliative care patient: Status: Acute Assessment and plan: It was a pleasure to meet with Charles. There was discussion at his last oncology visit about referral to Palliative care, specifically Jenelle Bowman NP. They also discussed second opinion at [facility] and a referral was sent. Charles's biggest concern is for his children and his significant other, Claritza. He has 3 of his own children, age 14-17years old. Claritza has 4 children, all are out of the house except her youngest who is 17. Charles's parents both young and therefore were not around to be grandparents to his children. He always promised his kids that he would be a grandfather to their kids and now he feels the cancer is taking that from him. He is also worried about his significant other, Claritza, having to take on too much. Claritza reports that Charles moved to the [place] in [place], he has a green card and is worried about his children receiving survival benefits. It appears that if he has a social security card and has worked enough years, they would probably be eligible. He is still working at [employer] and plans to work as long as he can. He will need outpatient f/u, Palliative office notified. (9) Advanced care planning/counseling discussion: Status: Acute Assessment and plan: Claritza wants Palliative to be involved to make sure the children have the support that they need. She wants help defining his goals and help to support him and honoring his wishes. She is interested in completing AD. Briefly discussed CODE status/COLST form with Claritza. He is a FULL code at this time. Review of Systems Narrative: PER HPI PFSH All Active Problems (Updated 06/24/25 @ 15:53 by Parul Sen NP) Advanced care planning/counseling discussion (Acute) Palliative care patient (Acute) Chemotherapy induced nausea and vomiting (Acute) Atrial fibrillation with rapid ventricular response (Acute) Atrial fibrillation with rapid ventricular response (Acute) Hypertension (Chronic) Burn of right leg (Acute) Foot ulcer, left (Acute) Cellulitis (Acute) Ulcer of right foot with fat layer exposed (Acute) Hyperpigmented skin lesion (Acute) Nevus (Acute) Adenocarcinoma of duodenum (Chronic) Peripheral neuropathy (Acute) Venous insufficiency (Acute) Plantar fascial fibromatosis of left foot (Acute) Ulcer of left foot, limited to breakdown of skin (Acute) Type 2 diabetes mellitus with diabetic nephropathy (Acute) Type 2 diabetes mellitus without complication (Acute) Tubulovillous adenoma (Acute ~12/04/22) Tubular adenoma (Acute ~12/04/22) Steatosis (Acute) Duodenal nodule (Acute) Abnormal abdominal CT scan (Acute) Abnormal bowel habits (Acute) Cataracts, bilateral (Acute) Diabetic foot ulcer (Acute) Nausea and vomiting (Acute) Screening for colon cancer (Acute) CKD (chronic kidney disease) (Chronic) JOSE (obstructive sleep apnea) (Chronic) Depression with anxiety (Acute) Diabetic neuropathy (Acute) Obesity (Chronic) Peripheral edema (Acute) Bowel habit changes (Acute) Vitamin B12 deficiency (Acute) Decreased hearing (Acute) Screening for STD (sexually transmitted disease) (Acute) Neuropathic ulcer (Acute) Wound of right foot (Acute) Wound of left foot (Acute) Cellulitis of foot, right (Acute) Foreign body (FB) in soft tissue (Acute) Phimosis (Acute) Depression (Chronic) HTN (hypertension) with goal to be determined (Chronic) Diabetes (Chronic) Medical History Erectile dysfunction Anxiety Calculus of distal left ureter Fatty liver Surgical History History of Whipple procedure (~02/2024) History of colonoscopy with polypectomy (~12/04/22) History of esophagogastroduodenoscopy (EGD) (~12/2023) H/O vasectomy History of cholecystectomy Family History Brother Diabetes Asthma Father Diabetes Angina pectoris Kidney failure Acute CVA (cerebrovascular accident) Sister Diabetes Mental and behavioral problem Mother , age 64 DM Diabetes Maternal Grandmother Cancer Social History Smoking/Tobacco Use Status: Never Smoking risk assessment performed?: Yes Alcohol Intake: current Alcohol Intake frequency: holidays/special occasions only Drug use: Never Substance use type: does not use Household members: children Housing: house Number of Children: 3 current occupation: [employer] What is your relationship status?: Panel score (0-1 are the most socially isolated patients): 0 Do you feel safe at home: Yes Do you feel safe in your relationship?: Yes Exam Narrative Exam Narrative: General: very pleasant, well nourished, middle aged man, lying in hospital bed in the ICU. He appears fatigued, wearing CPAP. He has a strong Faroese accent. He engages in the visit and answers questions appropriately. He closed his eyes frequently during the visit. HEENT: normocephalic, atraumatic, EOMI, mmm. neck: supple Respiratory: wearing CPAP, respirations appear even and unlabored. Ext: moves all 4 extremities freely. Results Last Vital Signs Temp 36.4 C L 06/24/25 12:01 Pulse 72 06/24/25 14:01 Resp 17 06/24/25 14:01 BP 102/66 06/24/25 14:01 Pulse Ox 96 06/24/25 14:01 Labs 06/24/25 00:25 06/24/25 00:25 Labs: Laboratory Results - last 24 hr 06/24/25 06/24/25 06/24/25 00:25 01:25 04:00 WBC 9.60 RBC 6.83 H Hgb 15.1 Hct 48.1 MCV 70 L MCH 22.1 L MCHC 31.4 L RDW 18.0 H Plt Count 188 MPV Immature Gran % 0.3 Neutrophils % 90.2 Lymphocytes % 7.3 Monocytes % 2.0 Eosinophils % 0.0 Basophils % 0.2 Nucleated RBC % 0.0 Absolute Neutrophils 8.66 H Absolute Lymphocytes 0.70 L Absolute Monocytes 0.19 Absolute Eosinophils 0.00 Absolute Basophils 0.02 RBC Morphology See Below Microcytosis 1+ PT 10.9 INR 1.1 APTT 26.1 Sodium 137 Potassium 4.1 Chloride 99 Carbon Dioxide 25.6 Anion Gap 12.4 H BUN 11 Creatinine 1.1 Est GFR (CKD-EPI 2020) 81.78 Glucose 254 H Calcium 9.2 Magnesium 1.9 Total Bilirubin 0.5 AST 18 ALT 38 Alkaline Phosphatase 151 H Troponin I 11 15 16 NT-Pro-B Natriuret Pep 130 Total Protein 8.3 H Albumin 4.1 TSH 1.46 COVID-19 Source SARS-CoV-2 (PCR) Influenza Type A (PCR) Influenza Type B (PCR) RSV (PCR) 06/24/25 05:38 WBC RBC Hgb Hct MCV MCH MCHC RDW Plt Count MPV Immature Gran % Neutrophils % Lymphocytes % Monocytes % Eosinophils % Basophils % Nucleated RBC % Absolute Neutrophils Absolute Lymphocytes Absolute Monocytes Absolute Eosinophils Absolute Basophils RBC Morphology Microcytosis PT INR APTT Sodium Potassium Chloride Carbon Dioxide Anion Gap BUN Creatinine Est GFR (CKD-EPI 2020) Glucose Calcium Magnesium Total Bilirubin AST ALT Alkaline Phosphatase Troponin I NT-Pro-B Natriuret Pep Total Protein Albumin TSH COVID-19 Source Nasopharynx SARS-CoV-2 (PCR) Negative Influenza Type A (PCR) Negative Influenza Type B (PCR) Negative RSV (PCR) Negative Time Spent Time Spent with Patient Time Spent(min): 112
--- NOTE | 2025-06-24 14:19 | CHAPLAIN ---
Cahrles came to the ED after a chemo treatment for his metastatic colorectal cancer and an irregular heartbeat. Dax's fiance, Claritza, is a Med/Surg nurse here. Charles was sleeping when I first visited this morning and I found him awake this afternoon. Claritza and some of their kids had been in to visit this morning. They have seven kids between them. I introduced myself to Charles, explained my role and offered support. Clearly, this is not where Charles wants to be. He talked about the unbelieavableness of all this, and the unfairness for his family. I will continue to visit.
[2025-06-24] MEDS: LORazepam 0.5 MG TAB PO (18:09)
--- NOTE | 2025-06-24 20:15 | RT.EKG_ITS ---
APPROVED REPORT Exam: Resting ECG Reason for Exam: PAF converted to sinus rhythm Patient Location: I HR:69 bpm ECG Measurements Heart Rate 69 AXIS [place] 159 P 62 QRSd 103 QRS 67 QT 450 T 50 QTc 482 Conclusion Sinus rhythm...normal P axis, V-rate 50- 99 Borderline prolonged QT interval...QTc >475mS
[2025-06-24] MEDS: Lactated Ringers 1,000 ML 150 ML IV (21:41)
[2025-06-24] MEDS: Insulin Glargine 300 UNITS/3 ML PEN 15 UNITS SC (22:19)
[2025-06-25] VITALS (53 sets, daily range): BP systolic 106–143; BP diastolic 67–86; PULSE 57–100; RESP 9–20; TEMP 36.4–37.1; O2SAT 93–98
[2025-06-25] MEDS: dilTIAZem 125 MG in Normal Saline 100 ML 10 MG IV (03:47)
[2025-06-25] MEDS: Lactated Ringers 1,000 ML 150 ML IV ×3 (04:10→19:56)
[2025-06-25 06:08] LABS: HCT 43.0 % (40.0-50.0); HGB 13.5 g/dL (13.5-17.5); MCH 22.7 pg (27.0-33.0); MCHC 31.4 % (32.0-36.0); MCV 72 fL (80-95); MPV 10.5 fL (8.0-11.0); Platelet Count 152 10^3/uL (130-400); RBC 5.96 10^6/uL (4.36-5.78); RDW 17.4 % (11.8-14.1); RDW-SD 43.0 fL; WBC 6.06 10^3/uL (4.4-10.8)
[2025-06-25 06:26] LABS: ALT 23 U/L (16-63); AST 11 U/L (15-37); Albumin 3.2 g/dL (3.4-5.0); Alkaline Phosphatase 110 U/L (46-116); Anion Gap 8.9 mmol/L (3-11); BUN 18 mg/dL (7-18); Bilirubin, Total 0.9 mg/dL (0.2-1.0); CO2 28.1 mmol/L (21.0-32.0); Calcium 8.2 mg/dL (8.5-10.1); Chloride 103 mmol/L (98-107); Glucose 243 mg/dL (74-106); Potassium 4.0 mmol/L (3.5-5.1); Sodium 140 mmol/L (136-145); Total Protein 6.6 g/dL (6.4-8.2)
--- NOTE | 2025-06-25 06:46 | RESPIRATORY ---
Pt's own ResMed home CPAP Constant Pressure: 10 cmH2O No H2O chamber. DME: [employer]. No O2 bleed in. Nasal mask: Large
[2025-06-25] MEDS: Prochlorperazine 10 MG/2 ML VIAL IVP ×2 (08:34→16:11)
[2025-06-25] MEDS: Insulin Aspart 300 UNITS/3 ML PEN SC ×4 (08:34→22:29)
[2025-06-25] MEDS: Apixaban 5 MG TAB PO ×2 (09:15→19:53)
[2025-06-25] MEDS: Citalopram 20 MG TAB 40 MG PO (09:15)
[2025-06-25] MEDS: Pantoprazole 40 MG VIAL IVP (09:16)
[2025-06-25] MEDS: dilTIAZem 60 MG TAB 90 MG PO ×3 (09:16→19:54)
[2025-06-25] MEDS: Normal Saline Flush 10 ML SYR IVP ×3 (09:17→19:56)
--- NOTE | 2025-06-25 14:07 | NUR.NOTE ---
Nursing Note: Pt's chemotherapy ended around 1230. Pt's partner, Claritza, disconnected and flushed pt's port as she manages it at home. Claritza brought pump back home with her. Port assessed, dressing c/d/i.
--- NOTE | 2025-06-25 14:11 | PGE_ITS ---
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 He had new onset atrial fibrillation and will need echocardiogram and has been initiated on Eliquis. Cardioversion may be an option as an outpatient if he stabilizes. He is controlled on a diltiazem drip which has been adjusted and we could add metoprolol orally if needed. Blood pressure has been stable. His troponins are negative and he has no evidence of ischemia. Cardiology stated that he could continue his chemotherapy while treating this problem. He will be converted to oral therapy prior to discharge. Cardiology will need to follow the patient as an outpatient and they will advise on whether patient should consider adjustment of medical therapy for conversion versus cardioversion. He is a full code. Jun 25: off diltiazem gtt, on PO diltiazem. Continue apixaban. Downgrading to the floor. (2) Chemotherapy induced nausea and vomiting: Start date: 06/24/25 Status: Acute Assessment and plan: Continue symptomatic care with IV hydration as needed. Clear fluid diet and advance as tolerated. 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 He is status post Whipple's procedure and is on pancreatic enzyme replacement when he does eat. (4) Hypertension: Status: Chronic Assessment and plan: Adjust medical therapy while patient is hospitalized watch for hypotension with fluid loss. (5) JOSE (obstructive sleep apnea): Status: Chronic Assessment and plan: Continue home CPAP measurements. will bring in his home machine. (6) Diabetes: Status: Chronic Assessment and plan: Outpatient medication will be held with patient having glucometer measurements before meals and at bedtime with sliding scale coverage. (7) Depression: Status: Chronic Assessment and plan: Continue outpatient medical therapy. Patient does take Ativan as needed but review of the PDMP, Ativan has not been prescribed since 2023 and this should be reconciled by pharmacy. He is on a SSRI will be continued. Subjective Subjective Interval history since last seen: Mr. Yoel Martins continues to have nausea and vomiting, improved with compazine. Pursuing dronabinol for use here and at home; pre-auth in progress. He is off diltiazem drip, on PO now. Exam Narrative Exam Narrative: General: This is a pleasant man in some distress from nausea/vomiting HEENT: Normocephalic, atraumatic CV: irregularly irregular Resp: CTAB Abd: soft, NTND MSK: voluntary motion x4 Neuro: awake, alert, no focal deficits Objective Last Vital Signs Temp 36.4 C L 06/25/25 04:01 Pulse 84 06/25/25 13:30 Resp 18 06/25/25 13:30 BP 129/79 06/25/25 13:01 Pulse Ox 96 06/25/25 13:30 Laboratory Results - last 24 hr 06/25/25 05:54 WBC 6.06 RBC 5.96 H Hgb 13.5 Hct 43.0 MCV 72 L MCH 22.7 L MCHC 31.4 L RDW 17.4 H Plt Count 152 MPV 10.5 Sodium 140 Potassium 4.0 Chloride 103 Carbon Dioxide 28.1 Anion Gap 8.9 BUN 18 Creatinine 0.9 Est GFR (CKD-EPI 2020) 104.05 Glucose 243 H Calcium 8.2 L Total Bilirubin 0.9 AST 11 L ALT 23 Alkaline Phosphatase 110 Total Protein 6.6 Albumin 3.2 L Time Spent with Patient Time Spent with Patient: 25-34 minutes Time was spent: preparing to see the patient(eg.review tests), obtaining and/or reviewing separately otained hiistory, ordering medications,tests, procedures, referring, communicating with other health manager intensive care unit, indepentently interpreting results, counseling the patient and care coordination
--- NOTE | 2025-06-25 18:15 | W.PC.ACHO ---
Registration Status: ADM IN Primary Language: Preferred Language: Croatian ED Information & Data Chief Complaint Arrhythmia 06/24/25 01:16 Triage Note First dose of a new chemo 06/24/25 00:15 drug today. Noticed increased and irregular heartbeat around 2200 tonight. Became weak. Persistent nausea. Medical / Surgical History (Last Reviewed 06/24/25 @ 15:40 by Parul Sen NP) Erectile dysfunction Anxiety Calculus of distal left ureter Fatty liver (Last Reviewed 06/24/25 @ 15:40 by Parul Sen NP) History of Whipple procedure (~02/2024) History of colonoscopy with polypectomy (~12/04/22) History of esophagogastroduodenoscopy (EGD) (~12/2023) H/O vasectomy History of cholecystectomy Most Recent Vital Signs Temperature 37.1 C 06/25/25 16:44 Temperature Source Tympanic 06/25/25 16:44 Pulse 71 06/25/25 16:44 Pulse 77 06/25/25 16:30 Respiratory Rate 15 06/25/25 16:44 Respiratory Effort Normal, Non-Labored 06/24/25 05:45 Respiratory Depth Normal 06/24/25 05:45 Respiratory Pattern Normal 06/24/25 05:45 Blood Pressure 133/80 06/25/25 16:44 Blood Pressure Mean 97 06/25/25 16:44 Blood Pressure Position Sitting 06/24/25 00:15 Pulse Oximetry 96 06/25/25 16:44 Oxygen Delivery Method Room Air 06/25/25 16:44 Oxygen Flow Rate 0 06/25/25 16:44 Pain Level 0 06/25/25 16:44 Allergies Penicillins Allergy (Intermediate, Verified 06/24/25 00:20) Anaphylaxsis Active Medications Generic Name Dose Route Start Last Admin Trade Name Freq PRN Reason Stop Dose Admin Apixaban 5 mg 06/24/25 08:30 06/25/25 09:15 Apixaban 5 Mg Tab PO 5 mg BID MIRTA Administration Citalopram Hydrobromide 40 mg 06/24/25 08:30 06/25/25 09:15 Citalopram 20 Mg Tab PO 40 mg DAILY MIRTA Administration Cyanocobalamin 1,000 mcg 06/24/25 08:30 06/24/25 08:30 Cyanocobalamin 500 Mcg Tab PO 1,000 mcg MoWeFr@0830 [facility] Administration Diltiazem HCl 90 mg 06/25/25 08:30 06/25/25 14:12 Diltiazem 60 Mg Tab PO 90 mg TID MIRTA Administration Fexofenadine HCl 180 mg 06/24/25 08:30 06/25/25 09:15 Fexofenadine 180 Mg Tab PO 180 mg DAILY MIRTA Administration Diltiazem HCl 125 mg/ Sodium 125 mls @ 0 mls/hr 06/24/25 02:30 06/25/25 09:43 Chloride IV 0 mls/hr INFUSION [facility] 0 mls/hr Protocol Titration Per Protocol Ringer's Solution 1,000 mls @ 150 mls/hr 06/24/25 17:30 06/25/25 12:51 IV 150 mls/hr INFUSION [facility] Administration Insulin Aspart 0 - 18 units 06/24/25 08:00 06/25/25 16:31 Insulin Aspart 300 Units/3 Ml Pen SC 6 units 0800,1200,1700,2200 [facility] Administration Protocol Insulin Glargine 15 units 06/24/25 20:00 06/24/25 22:19 Insulin Glargine 300 Units/3 Ml Pen SC 5 units HS [facility] Administration Lorazepam 0.5 mg 06/24/25 05:48 06/24/25 18:09 Lorazepam 0.5 Mg Tab PO 0.5 mg DAILY PRN PRN Administration Montelukast Sodium 10 mg 06/24/25 08:30 06/25/25 10:18 Montelukast 10 Mg Tab PO Not Given DAILY [facility] Pantoprazole Sodium 40 mg 06/24/25 07:30 06/25/25 09:16 Pantoprazole 40 Mg Vial IVP 40 mg 0730 [facility] Administration Pt's Own Lipase- 4 each 06/24/25 12:00 06/25/25 16:34 Protease-Amylase [ PO Not Given Zenpep] 40,000-126, TID@0800,1200,1700 [facility] 000- 168 Polyethylene Glycol 17 gm 06/24/25 08:30 06/25/25 10:19 Polyethylene Glycol 3350 17 Gm Packet PO Not Given DAILY [facility] Potassium Chloride 10 meq 06/24/25 08:30 06/25/25 10:19 Potassium Chloride 10 Meq Tabcr PO Not Given DAILY [facility] Prochlorperazine Edisylate 10 mg 06/24/25 11:23 06/25/25 16:11 Prochlorperazine 10 Mg/2 Ml Vial IVP 10 mg Q4H PRN PRN Administration Sodium Chloride 0 ml 06/24/25 08:30 06/25/25 09:17 Normal Saline Flush 10 Ml Syr IVP 50 ml BID MIRTA Administration IV IV Catheter Type [Left Hand] Saline Lock IV Catheter Type [Right Medial Saline Lock Port] IV Catheter Type [Right Peripheral IV Antecubital] IV Catheter Gauge [Left Hand] 20 IV Catheter Gauge [Right 18 Antecubital] Diagnostics 06/25/25 Range/Units 05:54 WBC 6.06 (4.4-10.8) 10^3/uL RBC 5.96 H (4.36-5.78) 10^6/uL Hgb 13.5 (13.5-17.5) g/dL Hct 43.0 (40.0-50.0) % MCV 72 L (80-95) fL MCH 22.7 L (27.0-33.0) pg MCHC 31.4 L (32.0-36.0) % RDW 17.4 H (11.8-14.1) % Plt Count 152 (130-400) 10^3/uL MPV 10.5 (8.0-11.0) fL Sodium 140 (136-145) mmol/L Potassium 4.0 (3.5-5.1) mmol/L Chloride 103 (98-107) mmol/L Carbon Dioxide 28.1 (21.0-32.0) mmol/L Anion Gap 8.9 (3-11) mmol/L BUN 18 (7-18) mg/dL Creatinine 0.9 (0.70-1.30) mg/dL Est GFR (CKD-EPI 2020) 104.05 (mL/min/1.73m2) Glucose 243 H (74-106) mg/dL Calcium 8.2 L (8.5-10.1) mg/dL Total Bilirubin 0.9 (0.2-1.0) mg/dL AST 11 L (15-37) U/L ALT 23 (16-63) U/L Alkaline Phosphatase 110 (46-116) U/L Total Protein 6.6 (6.4-8.2) g/dL Albumin 3.2 L (3.4-5.0) g/dL Xtoph-nc-Omid Documentation Fingerstick Glucose Start: 06/24/25 05:48 Freq: AC & HS Status: Active Protocol: Activity Type Activity Date Activity User E-sign Co-sign Detail Recorded Client Recorded Date Recorded By Document 06/25/25 16:18 BKG DAEMON(3) [id number] 06/25/25 16:19 BKG DAEMON(4) Intake and Output - 24 Hour Total 06/24/25 00:10 thru 06/25/25 17:38 Intake Total 2973.583 Output Total 1800 Balance 1173.583 Weight 128 kg Intake: IV 2366.583 Oral 607 Output: Urine 1300 Emesis 500 Other: Urine Color Dark Lizbet Urine Appearance Clear Urine Odor Strong Emesis Description Retching Bile Falls Risk Assessment History of Falls No History 06/24/25 05:45 Contributing Factors Impairments,Medications 06/24/25 05:45 Ambulatory Aids Independent 06/24/25 05:45 Tubes/Lines With any additional score 06/24/25 05:45 Gait Evaluation No gait disturbance 06/24/25 05:45 Cognition No cognitive impairment 06/24/25 05:45 Fall Total Score 26 06/24/25 05:45 Level of Risk Moderate Risk 06/24/25 05:45 Problems (Last Reviewed 06/24/25 @ 15:40 by Parul Sen NP) Advanced care planning/counseling discussion (Acute) Palliative care patient (Acute) Chemotherapy induced nausea and vomiting (Acute) Atrial fibrillation with rapid ventricular response (Acute) Hypertension (Chronic) Adenocarcinoma of duodenum (Chronic) JOSE (obstructive sleep apnea) (Chronic) Depression (Chronic) Diabetes (Chronic) Notes 06/25/25 14:07 Nursing Notes by Samara Lassiter Nursing Note: Pt's chemotherapy ended around 1230. Pt's partner, Claritza, disconnected and flushed pt's port as she manages it at home. Claritza brought pump back home with her. Port assessed, dressing c/d/i. Initialized on 06/25/25 14:07 - END OF NOTE 06/25/25 06:46 Respiratory by Osmany Conn Pt's own ResMed home CPAP Constant Pressure: 10 cmH2O No H2O chamber. DME: [facility] [employer]. No O2 bleed in. Nasal mask: Large Initialized on 06/25/25 06:46 - END OF NOTE 06/24/25 02:44 Nursing Notes by Zeferino Fitzpatrick diltiazem drip on hold per verbal order from ED MD pending PTs response to iv push and PO diltiazem Nursing Note: Initialized on 06/24/25 02:44 - END OF NOTE 06/24/25 00:33 Nursing Notes by Zeferino Fitzpatrick ED MD verbal order to hold Cardizem Nursing Note: Initialized on 06/24/25 00:33 - END OF NOTE v v v v v v v v v Sending and/or Receiving Nurses: Please use comment section below to note any information pertinent to the patient hand-off not included above. Information / Comments: Report received at 1644, 20 G L hand, 18 G R AC. Report received from: Lety Hewitt, SEAFOOD MANAGER
[2025-06-25] MEDS: Gabapentin 600 MG TAB PO (19:53)
[2025-06-25] MEDS: Insulin Glargine 300 UNITS/3 ML PEN 15 UNITS SC (19:55)
[2025-06-26] MEDS: Lactated Ringers 1,000 ML 150 ML IV ×2 (02:46→10:06)
[2025-06-26 02:58] VITALS: BP 127/82; PULSE 70; RESP 18; TEMP 36.5; O2SAT 97
[2025-06-26 06:34] LABS: HCT 39.6 % (40.0-50.0); HGB 12.3 g/dL (13.5-17.5); MCH 22.2 pg (27.0-33.0); MCHC 31.1 % (32.0-36.0); MCV 71 fL (80-95); MPV 10.5 fL (8.0-11.0); Platelet Count 125 10^3/uL (130-400); RBC 5.55 10^6/uL (4.36-5.78); RDW 16.7 % (11.8-14.1); RDW-SD 42.6 fL; WBC 4.03 10^3/uL (4.4-10.8)
[2025-06-26 06:56] LABS: ALT 21 U/L (16-63); AST 12 U/L (15-37); Albumin 2.9 g/dL (3.4-5.0); Alkaline Phosphatase 96 U/L (46-116); Anion Gap 7.8 mmol/L (3-11); BUN 11 mg/dL (7-18); Bilirubin, Total 0.7 mg/dL (0.2-1.0); CO2 30.2 mmol/L (21.0-32.0); Calcium 8.1 mg/dL (8.5-10.1); Chloride 101 mmol/L (98-107); Glucose 162 mg/dL (74-106); Potassium 3.5 mmol/L (3.5-5.1); Sodium 139 mmol/L (136-145); Total Protein 6.2 g/dL (6.4-8.2)
[2025-06-26 07:36] VITALS: BP 129/83; PULSE 89; RESP 19; TEMP 36.7; O2SAT 95
[2025-06-26] MEDS: Normal Saline Flush 10 ML SYR IVP ×2 (08:20→12:15)
[2025-06-26] MEDS: Insulin Aspart 300 UNITS/3 ML PEN SC (08:20)
[2025-06-26] MEDS: Pantoprazole 40 MG VIAL IVP (08:21)
[2025-06-26] MEDS: Apixaban 5 MG TAB PO (08:21)
[2025-06-26] MEDS: Citalopram 20 MG TAB 40 MG PO (08:21)
[2025-06-26] MEDS: dilTIAZem 60 MG TAB 90 MG PO (08:22)
--- NOTE | 2025-06-26 11:33 | DSE_ITS ---
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 He had new onset atrial fibrillation and will need echocardiogram and has been initiated on Eliquis. Cardioversion may be an option as an outpatient if he stabilizes. He is controlled on a diltiazem drip which has been adjusted and we could add metoprolol orally if needed. Blood pressure has been stable. His troponins are negative and he has no evidence of ischemia. Cardiology stated that he could continue his chemotherapy while treating this problem. He will be converted to oral therapy prior to discharge. Cardiology will need to follow the patient as an outpatient and they will advise on whether patient should consider adjustment of medical therapy for conversion versus cardioversion. He is a full code. Jun 25: off diltiazem gtt, on PO diltiazem. Continue apixaban. Downgrading to the floor. Jun 26: doing well on apixaban and PO diltiazem. Outpatient followup arranged. Discharging home to the care of his family. (2) Chemotherapy induced nausea and vomiting: Status: Acute Asessment and Plan: Relief with compazine Initiated prior auth for dronabinol - local stocks depleted. Recommend PCP or oncology followup. (3) Adenocarcinoma of duodenum: Status: Chronic Asessment and Plan: Followed by [place]ology [place] [facility] [place] and will continue infusion of chemotherapy over the next 24 hours. He is status post Whipple's procedure and is on pancreatic enzyme replacement when he does eat. (4) Hypertension: Status: Chronic Asessment and Plan: Normotensive on home regimen, with the addition of diltiazem. (5) JOSE (obstructive sleep apnea): Status: Chronic Asessment and Plan: Continue home CPAP (6) Diabetes: Status: Chronic Asessment and Plan: Continue home regimen (7) Depression: Status: Chronic Asessment and Plan: Continue home regimen Discharge Plan Disposition Patient Disposition: Home Condition: Improving Discharge Details Reason For Visit: New-Onset Atrial Fibrillation with RVR Admit Date/Time: 06/24/25 05:14 Admit Provider: Joe Renae Attending Provider: Joe Renae Primary Care Provider: [facility] Course Hospital Course: Charles Nick is a 49 year old man presenting June 24 with new onset atrial fibrillation, in the setting of new diagnosis of recurrent duodenal adenocarc inoma with recent initiation of chemotherapy. Patient was in the ICU on diltiazem drip overnight, converting to NSR and continued on PO diltiazem. He has been started on apixaban. He was not able to get echocardiogram over the weekend; he should follow up with cardiology. He is feeling well and ambulating with excellent support at home and is safe to discharge. Home Meds and New Rx's Prescriptions: New dronabinol 2.5 mg capsule 2.5 mg PO QACDINNER Qty: 14 0RF Eliquis 5 mg Tablet 5 mg PO BID Qty: 180 0RF Continued gabapentin 600 mg tablet 600 mg PO HS PRN lorazepam 0.5 mg tablet 0.5 mg PO DAILY PRN Zenpep 40,000-126,000- 168,000 unit capsule,delayed release(DR/EC) 4 cap PO TIDWMEAL Rx Instructions: up to max 18 cap per day fexofenadine [Leslie Allergy] 180 mg tablet 180 mg PO DAILY Baqsimi 3 mg/actuation spray,non-aerosol 3 mg intranasal ONCE PRN (Reason: hypoglycemia) Rx Instructions: as a single dose instill 1 spray nasally as directed as needed for sever hypoglycemia not responding to oral treatment for low blood sugar citalopram 40 mg tablet 40 mg PO DAILY diphenoxylate-atropine 2.5-0.025 mg tablet 1 tab PO QID PRN Rx Instructions: take one tablet by mouth four times a day as needed for diarrhea ondansetron 8 mg tablet,disintegrating 8 mg PO Q8H PRN (Reason: nausea and vomiting) multivit with min-folic acid [Adult Multivitamin Gummies] 200 mcg tablet,chewable 1 tab PO DAILY Zenpep 40,000-126,000- 168,000 unit capsule,delayed release(DR/EC) 2 cap PO TID PRN (Reason: snack) Rx Instructions: up to max 18 cap per day acetaminophen 325 mg tablet 650 mg PO Q6H PRN Patient Comments: TAKE TWO TABLETS BY MOUTH EVERY 8 HOURS NEEDED prochlorperazine maleate 10 mg tablet 10 mg PO Q8H PRN Patient Comments: TAKE ONE TABLET BY MOUTH EVERY 6 HOURS NEEDED FOR NAUSEA ergocalciferol (vitamin D2) 1,250 mcg (50,000 unit) capsule 5,000 mcg PO QWEEK Patient Comments: TAKE ONE CAPSULE BY MOUTH ONCE A WEEK Rx Instructions: on Friday insulin lispro [Humalog U-100 Insulin] 100 unit/mL solution See Rx Instructions .ROUTE .COMPLEX Rx Instructions: use as directed in Omnipod insulin pump up to 100 units daily tadalafil 20 mg tablet 20 mg PO DAILY PRN Patient Comments: TAKE 1 TABLET BY MOUTH EVERY DAY NEEDED furosemide 40 mg tablet 40 mg PO BID Patient Comments: taking 40 mg qam per fiance// reported (DME) Dexcom G7 Sensor Device MISCELLANEOUS Patient Comments: CHANGE SENSOR EVERY 10 DAYS DIRECTED FOR USE WITH OMNIPOD (DME) Omnipod 5 G6-G7 Pods (Gen 5) Cartridge SUBCUT Patient Comments: USE DIRECTED - CHANGE POD EVERY 2 DAYS AND FILL WITH 200 UNITS OF INSULIN EVERY 2 DAYS cyanocobalamin (vitamin B-12) 1,000 mcg tablet 1,000 mcg PO .COMPLEX Rx Instructions: 1,000 mcg orally three times per week on Mon, Wed, and Fri; fish oil-dha-epa 1 cap PO DAILY Discontinued polyethylene glycol 3350 17 gram/dose powder 17 g PO DAILY omeprazole 20 mg capsule,delayed release(DR/EC) 20 mg PO DAILY Slow-Mag 71.5 mg tablet,delayed release (DR/EC) 71.5 mg PO DAILY Discharge Instructions Stand Alone Forms: Nursing Discharge Form Referrals: Olga Hoffman [Primary Care Provider, Medicine] Referral Note: Your PCP office will give you a call regarding a follow up appointment, if you do not hear from your PCP please give them a call. Activity:: Activity as Tolerated Equipment/Supplies:: No Equipment Needed Diet:: As Tolerated Discharge Orders Discharge Orders: Discharge Order (Routine); Ordered 06/26/25 Ordered By: Gabriel Montilla Discharge Data Discharge Date/Time-TO BE ENTERED AT DEPARTURE: 06/26/25 12:31 DS: Summary Time Spent with Patient providing and/or coordinating discharge services: Greater than 30 minutes Status at Discharge Functional status at discharge: independent ambulation Overall status at discharge: patient is back to baseline Mental Status: mental status grossly normal Speech and Movement: speech and movement normal Mood: congruent mood Affect: normal affect Quality:SDOH Health Related Social Needs: Health related social needs house/econ circumstance Health related social needs details States he does not need further help at this time. Health related social needs details: States he does not need further help at this time. Exam Narrative Exam Narrative: General: This is a pleasant man in some distress from nausea/vomiting HEENT: Normocephalic, atraumatic CV: irregularly irregular Resp: CTAB Abd: soft, NTND MSK: voluntary motion x4 Neuro: awake, alert, no focal deficits Psych Mental Status: mental status grossly normal Speech and Movement: speech and movement normal Mood: congruent mood Affect: normal affect DS: Data Vitals/I&O Vitals and I&O: Vital Signs Temperature 36.7 C 06/26/25 07:36 Temperature Source Temporal Artery Scan 06/26/25 07:36 Pulse 89 06/26/25 07:36 Pulse 77 06/25/25 16:30 Respiratory Rate 19 06/26/25 07:36 Respiratory Effort Normal, Non-Labored 06/24/25 05:45 Respiratory Depth Normal 06/24/25 05:45 Respiratory Pattern Normal 06/24/25 05:45 Blood Pressure 129/83 06/26/25 07:36 Blood Pressure Mean 98 06/26/25 07:36 Blood Pressure Position Sitting 06/24/25 00:15 Pulse Oximetry 95 06/26/25 07:36 Oxygen Delivery Method Room Air 06/26/25 07:36 Oxygen Flow Rate 0 06/26/25 07:36 Fraction of Inspired Oxygen (FIO2) 21 06/26/25 08:15 Pain Level 0 06/26/25 07:19 Comment Nurse in room 06/25/25 20:13 Intake & Output 06/25/25 06/25/25 06/26/25 11:59 23:59 11:59 Intake Total 2356.833 / 3796.833 1440 / 3796.833 2220 / 2220 Output Total 1050 / 1800 750 / 1800 800 / 800 Balance 1306.833 / 1995.833 690 / 0192.852 9106 / 1420 Weight 128 kg Intake: IV 2156.833 / 3196.833 1040 / 3196.833 1999 / 1999 Oral 200 / 600 400 / 600 220 / 220 Output: Urine 1050 / 1800 750 / 1800 800 / 800 Other: Urine Color Dark Lizbet Yellow Yellow Urine Appearance Clear Clear Clear Urine Odor Strong Strong Normal Data Completed and Pending Labs on day of discharge: Labs from last 24 hours 06/26/25 05:33 WBC 4.03 L RBC 5.55 Hgb 12.3 L Hct 39.6 L MCV 71 L MCH 22.2 L MCHC 31.1 L RDW 16.7 H Plt Count 125 L MPV 10.5 Sodium 139 Potassium 3.5 Chloride 101 Carbon Dioxide 30.2 Anion Gap 7.8 BUN 11 Creatinine 0.8 Est GFR (CKD-EPI 2020) 107.82 Glucose 162 H Calcium 8.1 L Total Bilirubin 0.7 AST 12 L ALT 21 Alkaline Phosphatase 96 Total Protein 6.2 L Albumin 2.9 L PFSH All Active Problems (Updated 06/27/25 @ 00:04 by TERRELL DE LA FUENTE) Chemotherapy induced nausea and vomiting (Acute) Atrial fibrillation with rapid ventricular response (Acute) Hypertension (Chronic) Burn of right leg (Acute) Foot ulcer, left (Acute) Cellulitis (Acute) Ulcer of right foot with fat layer exposed (Acute) Hyperpigmented skin lesion (Acute) Nevus (Acute) Adenocarcinoma of duodenum (Chronic) Peripheral neuropathy (Acute) Venous insufficiency (Acute) Plantar fascial fibromatosis of left foot (Acute) Ulcer of left foot, limited to breakdown of skin (Acute) Type 2 diabetes mellitus with diabetic nephropathy (Acute) Type 2 diabetes mellitus without complication (Acute) Tubulovillous adenoma (Acute ~12/04/22) Tubular adenoma (Acute ~12/04/22) Steatosis (Acute) Duodenal nodule (Acute) Abnormal abdominal CT scan (Acute) Abnormal bowel habits (Acute) Cataracts, bilateral (Acute) Diabetic foot ulcer (Acute) Nausea and vomiting (Acute) Screening for colon cancer (Acute) CKD (chronic kidney disease) (Chronic) JOSE (obstructive sleep apnea) (Chronic) Depression with anxiety (Acute) Diabetic neuropathy (Acute) Obesity (Chronic) Peripheral edema (Acute) Bowel habit changes (Acute) Vitamin B12 deficiency (Acute) Decreased hearing (Acute) Screening for STD (sexually transmitted disease) (Acute) Neuropathic ulcer (Acute) Wound of right foot (Acute) Wound of left foot (Acute) Cellulitis of foot, right (Acute) Foreign body (FB) in soft tissue (Acute) Phimosis (Acute) Depression (Chronic) HTN (hypertension) with goal to be determined (Chronic) Diabetes (Chronic) Medical History Erectile dysfunction Anxiety Calculus of distal left ureter Fatty liver Surgical History History of Whipple procedure (~02/2024) History of colonoscopy with polypectomy (~12/04/22) History of esophagogastroduodenoscopy (EGD) (~12/2023) H/O vasectomy History of cholecystectomy Family History Brother Diabetes Asthma Father Diabetes Angina pectoris Kidney failure Acute CVA (cerebrovascular accident) Sister Diabetes Mental and behavioral problem Mother , age 64 DM Diabetes Maternal Grandmother Cancer Social History Smoking/Tobacco Use Status: Never Smoking risk assessment performed?: Yes Alcohol Intake: current Alcohol Intake frequency: holidays/special occasions only Drug use: Never Substance use type: does not use Household members: children Housing: house Number of Children: 3 current occupation: [employer] What is your relationship status?: Panel score (0-1 are the most socially isolated patients): 0 Do you feel safe at home: Yes Do you feel safe in your relationship?: Yes Time Spent with Patient Time Spent with Patient: <45 minutes Time was spent: preparing to see the patient(eg.review tests), obtaining and/or reviewing separately otained hiistory, ordering medications,tests, procedures, referring, communicating with other health career services director, indepentently interpreting results, counseling the patient and care coordination
[2025-06-26 12:02] VITALS: BP 141/86; PULSE 81; RESP 16; TEMP 37; O2SAT 96
--- NOTE | 2025-06-26 14:15 | PDOC.CMDIS ---
Date of service: 06/26/25 Time of Service: 14:15 LACE Index Scoring Tool Questions: Length of Stay (in days): 2 Was the patient admitted via the E.D.?: Yes Comorbidities: Diabetes w/o Complication and Liver or Renal Disease E.D. Visits: 0 Answers: Total Score: 10 Risk of Readmission: High Risk Care Management Discharge Plan Reason for Hospitalization: New Onset Afib with RVR Discharge Plan: Charles returned home today with no new services. His s/o, Claritza drove him home via private vehicle. JUSTINE will reach out to his PCP office for support with a PA for Dronabinol, which MD attempted to obtain a PA for prior to his discharge, but was not successful. Charles will follow up with his PCP and discharge plan of care. He was happy to be going home. Patient/Family Education Needs: Review discharge instructions and limitations, discussion of self care needs including ask me three. SDOH Health Related Social Needs: Health related social needs house/econ circumstance Health related social needs details States he does not need further help at this time. Health related social needs details: States he does not need further help at this time.
== END 2025-06-26 12:31 | disposition home or self-care (01) ==
LOC: ER 05:22 → ICU 06:08 → MS 06-26 09:36 → ICU 07-28 14:20 → MS 07-28 14:20
PROVIDERS: Admitting Provider Family Medicine; Emergency Provider Student in an Organized Health Care Education/Training Program; PCP Nurse Practitioner Family; Responsible Provider Family Medicine; Visit Provider Family Medicine
DX: I48.91 Unspecified atrial fibrillation (principal); C17.0 Malignant neoplasm of duodenum; C79.9 Secondary malignant neoplasm of unspecified site; R11.2 Nausea with vomiting, unspecified; G47.33 Obstructive sleep apnea (adult) (pediatric); E11.42 Type 2 diabetes mellitus with diabetic polyneuropathy; Z79.4 Long term (current) use of insulin; F32.A Depression, unspecified; T45.1X5A Adverse effect of antineoplastic and immunosuppressive drugs, initial encounter; I12.9 Hypertensive chronic kidney disease with stage 1 through stage 4 chronic kidney disease, or unspecified chronic kidney disease; E11.22 Type 2 diabetes mellitus with diabetic chronic kidney disease; N18.9 Chronic kidney disease, unspecified; I87.8 Other specified disorders of veins; E53.8 Deficiency of other specified B group vitamins; E66.9 Obesity, unspecified; F41.8 Other specified anxiety disorders; K76.0 Fatty (change of) liver, not elsewhere classified; Z68.36 Body mass index [BMI] 36.0-36.9, adult
CPT/HCPCS: 00123; 36415; 71275; 80053; 85027; 87637; 93005; 96365; 96366; 96375; 96376; 99285; 71045; 83735; 83880; 84443; 84484; 85025; 85610; 85730; 93010; 99223; 99231; 99238; G0378; J0780; J1815; J2470; J3490

== ENCOUNTER 2025-07-07 00:17 | Outpatient (RCR) | payer OTHER, SELFPAY ==
[2025-06-17] MEDS: Normal Saline Flush 10 ML SYR IVP (15:25)
[2025-06-17 15:33] LABS: Abs Immature Grans 0.02 10^3/uL (0.0-0.06); HCT 40.8 % (40.0-50.0); HGB 12.7 g/dL (13.5-17.5); Immature Grans % 0.3 %; MCH 22.3 pg (27.0-33.0); MCHC 31.1 % (32.0-36.0); MCV 72 fL (80-95); RBC 5.69 10^6/uL (4.36-5.78); RDW 17.2 % (11.8-14.1); RDW-SD 42.6 fL; WBC 7.35 10^3/uL (4.4-10.8)
[2025-06-17 15:49] LABS: ALT 28 U/L (16-63); AST 16 U/L (15-37); Albumin 3.4 g/dL (3.4-5.0); Alkaline Phosphatase 124 U/L (46-116); Anion Gap 6.7 mmol/L (3-11); BUN 10 mg/dL (7-18); Bilirubin, Total 0.4 mg/dL (0.2-1.0); CO2 29.3 mmol/L (21.0-32.0); Calcium 8.4 mg/dL (8.5-10.1); Chloride 103 mmol/L (98-107); Glucose 202 mg/dL (74-106); Microcytosis 1+; Platelet Count 163 10^3/uL (130-400); Potassium 3.9 mmol/L (3.5-5.1); Sodium 139 mmol/L (136-145); Total Protein 7.0 g/dL (6.4-8.2)
[2025-06-17 22:40] LABS: CEA 3.4 ng/mL (See Note)
[2025-07-07] MEDS: Normal Saline Flush 10 ML SYR IVP (08:39)
[2025-07-07 08:45] LABS: Abs Immature Grans 0.01 10^3/uL (0.0-0.06); HCT 41.1 % (40.0-50.0); HGB 13.0 g/dL (13.5-17.5); Immature Grans % 0.2 %; MCH 22.9 pg (27.0-33.0); MCHC 31.6 % (32.0-36.0); MCV 73 fL (80-95); MPV 9.7 fL (8.0-11.0); Platelet Count 188 10^3/uL (130-400); RBC 5.67 10^6/uL (4.36-5.78); RDW 16.8 % (11.8-14.1); RDW-SD 42.7 fL; WBC 5.72 10^3/uL (4.4-10.8)
[2025-07-07 09:02] LABS: ALT 47 U/L (16-63); AST 21 U/L (15-37); Albumin 3.4 g/dL (3.4-5.0); Alkaline Phosphatase 119 U/L (46-116); Anion Gap 6.8 mmol/L (3-11); BUN 10 mg/dL (7-18); Bilirubin, Total 0.5 mg/dL (0.2-1.0); CO2 30.2 mmol/L (21.0-32.0); Calcium 8.4 mg/dL (8.5-10.1); Chloride 101 mmol/L (98-107); Glucose 157 mg/dL (74-106); Potassium 4.1 mmol/L (3.5-5.1); Sodium 138 mmol/L (136-145); Total Protein 7.2 g/dL (6.4-8.2)
[2025-07-07 09:15] LABS: Microcytosis 1+
[2025-07-07 17:58] LABS: CEA 6.4 ng/mL (See Note)
== END 2025-07-15 23:59 | disposition home or self-care (01) ==
LOC: INF 00:17
PROVIDERS: PCP Nurse Practitioner Family; Visit Provider Nurse Practitioner Family
DX: Z45.2 Encounter for adjustment and management of vascular access device (principal); C17.0 Malignant neoplasm of duodenum
CPT/HCPCS: 36591; 80053; 82378; 85025

== ENCOUNTER 2025-08-04 00:46 | Outpatient (RCR) | payer OTHER, SELFPAY ==
[2025-07-21 08:40] LABS: Abs Immature Grans 0.01 10^3/uL (0.0-0.06); HCT 40.8 % (40.0-50.0); HGB 12.8 g/dL (13.5-17.5); Immature Grans % 0.2 %; MCH 22.5 pg (27.0-33.0); MCHC 31.4 % (32.0-36.0); MCV 72 fL (80-95); MPV 9.6 fL (8.0-11.0); Platelet Count 164 10^3/uL (130-400); RBC 5.70 10^6/uL (4.36-5.78); RDW 16.7 % (11.8-14.1); RDW-SD 41.6 fL; WBC 4.50 10^3/uL (4.4-10.8)
[2025-07-21 08:55] LABS: ALT 40 U/L (16-63); AST 15 U/L (15-37); Albumin 3.2 g/dL (3.4-5.0); Alkaline Phosphatase 131 U/L (46-116); Anion Gap 6.8 mmol/L (3-11); BUN 11 mg/dL (7-18); Bilirubin, Total 0.2 mg/dL (0.2-1.0); CO2 30.2 mmol/L (21.0-32.0); Calcium 8.5 mg/dL (8.5-10.1); Chloride 104 mmol/L (98-107); Estimated GFR 91.69 (mL/min/1.73m2); Glucose 208 mg/dL (74-106); Potassium 3.9 mmol/L (3.5-5.1); Sodium 141 mmol/L (136-145); Total Protein 6.8 g/dL (6.4-8.2)
[2025-07-21 09:21] LABS: Anisocytosis 1+; Hypochromasia 1+; Microcytosis 2+
[2025-07-21] MEDS: Normal Saline Flush 10 ML SYR IVP (14:41)
[2025-07-21 17:48] LABS: CEA 5.8 ng/mL (See Note)
[2025-08-04] MEDS: Normal Saline Flush 10 ML SYR IVP (08:55)
[2025-08-04 09:00] LABS: Abs Immature Grans 0.01 10^3/uL (0.0-0.06); HCT 39.9 % (40.0-50.0); HGB 12.5 g/dL (13.5-17.5); Immature Grans % 0.2 %; MCH 22.4 pg (27.0-33.0); MCHC 31.3 % (32.0-36.0); MCV 72 fL (80-95); MPV 9.3 fL (8.0-11.0); Platelet Count 179 10^3/uL (130-400); RBC 5.57 10^6/uL (4.36-5.78); RDW 17.3 % (11.8-14.1); RDW-SD 43.0 fL; WBC 5.25 10^3/uL (4.4-10.8)
[2025-08-04 09:17] LABS: Microcytosis 2+
[2025-08-04 09:26] LABS: ALT 31 U/L (10-49); AST 20 U/L (<34); Albumin 3.8 g/dL (3.4-5.0); Alkaline Phosphatase 107 U/L (46-116); Anion Gap 8.3 mmol/L (3-11); BUN 12 mg/dL (9-23); Bilirubin, Total 0.20 mg/dL (0.2-1.2); CO2 28.7 mmol/L (20.0-31.0); Calcium 8.5 mg/dL (8.3-10.6); Chloride 102 mmol/L (98-107); Glucose 219 mg/dL (74-106); Potassium 4.1 mmol/L (3.5-5.1); Sodium 139 mmol/L (136-145); Total Protein 6.3 g/dL (5.7-8.2)
[2025-08-04 23:05] LABS: CEA 7.7 ng/mL (See Note)
== END 2025-08-14 23:59 | disposition home or self-care (01) ==
LOC: INF 00:46
PROVIDERS: PCP Nurse Practitioner Family; Visit Provider Nurse Practitioner Family
DX: Z45.2 Encounter for adjustment and management of vascular access device (principal); C17.0 Malignant neoplasm of duodenum
CPT/HCPCS: 36591; 80053; 82378; 85025

== ENCOUNTER → 2025-08-22 00:46 | Outpatient (CLI) | payer OTHER, SELFPAY ==
[2025-08-22] MEDS: Barium Sulfate 2% W/V-Berry Smoothie 450 ML BTL PO (08:59)
[2025-08-22] MEDS: Omnipaque 350 MG/ML 100 ML BTL IJ (10:49)
[2025-08-22] MEDS: Normal Saline - Diluent 50 ML VIAL IJ (10:51)
[2025-08-22] MEDS: Normal Saline Flush 10 ML SYR IVP (10:51)
--- NOTE | 2025-08-22 11:05 | DI.CT_ITS ---
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 TECHNIQUE: Imaging Protocol: Axial computed tomography images with coronal and sagittal reformatted images were created and reviewed. Computer aided detection (CAD) was utilized. CONTRAST MATERIAL: Intravenous: Omnipaque 350 Contrast volume:100 ml Oral: yes / COMPARISON: CT CT CHEST/ABD/PEL W from 05/17/[address] CHEST PE CTA from 06/24/2025 FINDINGS: CHEST: Pulmonary parenchyma: No consolidation. No dominant measurable mass. Tracheobronchial tree: No bronchiectasis. No mucous plugging. No bronchial wall thickening. Pleura: No effusion or pneumothorax. Mediastinum: Within normal limits. Pulmonary arteries: No visible emboli. Cardiovascular: No pericardial effusion. Thoracic aorta non-dilated. Bones: Unremarkable for age. No lytic or blastic lesions. No compression fractures. Soft tissues: Right-sided chest port. Mild gynecomastia. ABDOMEN and PELVIS: Liver: Mild hepatic steatosis decreased size of mass at the dome of the right lobe of the liver now measuring 7 millimeters compared to 12 on the prior exam. Gallbladder and biliary tract: Whipple procedure again noted. Stable appearance of biliary stent. Pancreas: Status post Whipple procedure. The tail is somewhat atrophic. Or current mass. Spleen: Normal. Kidneys: Normal size, contour and axis. No radiodense stones. No obstructive uropathy. No suspicious masses seen. Adrenal glands: No masses seen. Aorta: Abdominal portion non-dilated. Lymph nodes: Significant decrease in size in the lymph needed node anterior to the esophagus at the level of the diaphragm. Now measures 9 millimeters. Previously noted node on anterior to the caudate lobe now measures 13 millimeters in greatest dimension compared with 2.8 cm on the prior exam. Sig nificant decrease in size of portacaval lymph node, now measuring 6 millimeters in a compared with 2.4 cm on the prior exam. There are few scattered tiny mesenteric nodes which appear stable. Soft tissues: Upper midline surgical scar. Bladder: Unremarkable. Bowel: Status post Whipple procedure. No obstruction or bowel wall thickening. Peritoneal cavity: No ascites. No focal collection. No mesenteric inflammatory response. No free air. Bones: bilateral L5 pars defects and mild L5-S1 spondylolisthesis appears stable. No lytic or blastic lesions. No compression fractures. Reproductive organs: Unremarkable for age. IMPRESSION: No evidence of metastatic disease in the chest. Significant decrease in size of upper abdominal adenopathy. Decreased size of lesion at the dome of the liver. RADIATION DOSE DELIVERED: 1,602.5mGy.cm Total DLP DATA REPOSITORY: All CT scans at this facility are submitted to the National Radiology Data Registry (NRDR) Dose Index Registry (DIR) with the [employer] ([employer]). RADIATION OPTIMIZATION: All CT scans at this facility use at least one of these dose optimization techniques: automated exposure control; mA and/or kV adjustment per patient size (includes targeted exams where dose is matched to clinical indication); or iterative reconstruction.
== END ==
LOC: DI 00:46
PROVIDERS: PCP Nurse Practitioner Family; Visit Provider Internal Medicine Hematology & Oncology
DX: C17.0 Malignant neoplasm of duodenum (principal)
CPT/HCPCS: 74177; 71260; J3490

== ENCOUNTER 2025-09-01 00:43 | Outpatient (RCR) | payer OTHER, SELFPAY ==
[2025-08-18 09:54] LABS: Abs Immature Grans 0.03 10^3/uL (0.0-0.06); HCT 39.8 % (40.0-50.0); HGB 12.3 g/dL (13.5-17.5); Immature Grans % 0.5 %; MCH 22.6 pg (27.0-33.0); MCHC 30.9 % (32.0-36.0); MCV 73 fL (80-95); MPV 9.5 fL (8.0-11.0); Platelet Count 174 10^3/uL (130-400); RBC 5.44 10^6/uL (4.36-5.78); RDW 19.0 % (11.8-14.1); RDW-SD 48.2 fL; WBC 6.27 10^3/uL (4.4-10.8)
[2025-08-18] MEDS: Normal Saline Flush 10 ML SYR IVP (09:59)
[2025-08-18 10:27] LABS: ALT 43 U/L (10-49); AST 25 U/L (<34); Albumin 3.9 g/dL (3.2-5.0); Alkaline Phosphatase 115 U/L (46-116); Anion Gap 7 mmol/L (3-11); BUN 11 mg/dL (9-23); Bilirubin, Total 0.30 mg/dL (0.2-1.2); CO2 28.0 mmol/L (20.0-31.0); Calcium 8.2 mg/dL (8.3-10.6); Chloride 105 mmol/L (98-107); Glucose 252 mg/dL (74-106); Potassium 4.1 mmol/L (3.5-5.1); Sodium 140 mmol/L (136-145); Total Protein 6.3 g/dL (5.7-8.2)
[2025-08-18 18:15] LABS: CEA 7.8 ng/mL (See Note)
[2025-08-22] MEDS: Normal Saline Flush 10 ML SYR IVP (08:30)
[2025-09-01] MEDS: Normal Saline Flush 10 ML SYR IVP (09:11)
[2025-09-01 12:04] LABS: ALT 29 U/L (10-49); AST 17 U/L (<34); Albumin 3.7 g/dL (3.2-5.0); Alkaline Phosphatase 108 U/L (46-116); Anion Gap 7.8 mmol/L (3-11); BUN 11 mg/dL (9-23); Bilirubin, Total 0.3 mg/dL (0.2-1.2); CO2 28.2 mmol/L (20.0-31.0); Calcium 8.4 mg/dL (8.3-10.6); Chloride 107 mmol/L (98-107); Glucose 172 mg/dL (74-106); Potassium 3.9 mmol/L (3.5-5.1); Sodium 143 mmol/L (136-145); Total Protein 6.3 g/dL (5.7-8.2)
[2025-09-01 14:27] LABS: HCT 40.0 % (40.0-50.0); HGB 12.5 g/dL (13.5-17.5); MCH 23.3 pg (27.0-33.0); MCHC 31.3 % (32.0-36.0); MCV 75 fL (80-95); RBC 5.37 10^6/uL (4.36-5.78); RDW 20.1 % (11.8-14.1); RDW-SD 52.1 fL; WBC 5.43 10^3/uL (4.4-10.8)
[2025-09-01 14:28] LABS: MPV 9.8 fL (8.0-11.0); Platelet Count 164 10^3/uL (130-400)
[2025-09-01 14:29] LABS: Anisocytosis 1+; Hypochromasia 1+; Immature Grans % 0.2 %; Microcytosis 2+
[2025-09-01 18:38] LABS: CEA 7.4 ng/mL (See Note)
== END 2025-09-14 23:59 | disposition home or self-care (01) ==
LOC: INF 00:43
PROVIDERS: PCP Nurse Practitioner Family; Visit Provider Nurse Practitioner Family
DX: Z45.2 Encounter for adjustment and management of vascular access device (principal); C17.0 Malignant neoplasm of duodenum
CPT/HCPCS: 36591; 80053; 96523; 82378; 85025